=== PATIENT | male | born 1955 | race Caucasian/White ===

== ENCOUNTER 2023-02-26 07:22 | Outpatient (RCR) | payer MEDICARE, SELFPAY ==
--- NOTE | 2023-01-07 08:12 | CR1_ITS ---
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
--- NOTE | 2023-02-04 13:05 | CR1_ITS ---
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 Order Number: [id number] Reading MD: JESSE JENKINS Interpretive Statements Session Date: Electronically Signed On 02-06-2023 10:17:20 EDT by JESSE JENKINS
--- NOTE | 2023-03-01 14:32 | CR1_ITS ---
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 Order Number: [id number] Reading MD: JESSE JENKINS Interpretive Statements Session Date: Electronically Signed On 03-02-2023 7:21:32 EDT by JESSE JENKINS
== END 2023-03-01 14:33 | disposition home or self-care (01) ==
LOC: CR 07:22
PROVIDERS: PCP Internal Medicine Interventional Cardiology; Visit Provider Internal Medicine Interventional Cardiology
DX: I50.9 Heart failure, unspecified (principal)
CPT/HCPCS: 93798

== ENCOUNTER 2023-03-17 08:59 | Outpatient (OUT) | payer MEDICARE, SELFPAY ==
[2023-03-17 12:49] LABS: Anion Gap 12.2; BUN Creatinine Ratio 11.8; Calcium 8.6 mg/dL (8.5-10.1); Carbon Dioxide 25.9 mmol/L (21.0-32.0); Chloride 103 mmol/L (98-107); Estimated GFR (African America >60 (>=60); Estimated GFR (Non-African Ame >60 (>=60); Glucose 86 mg/dL (74-106); Potassium 4.1 mmol/L (3.5-5.1); Sodium 137 mmol/L (136-145)
== END 2023-03-17 09:00 | disposition home or self-care (01) ==
LOC: LAB 09:03
PROVIDERS: PCP Family Medicine; Visit Provider Nurse Practitioner
DX: I50.22 Chronic systolic (congestive) heart failure (principal)
CPT/HCPCS: 36415; 80048

== ENCOUNTER 2023-06-01 09:56 | Outpatient (OUT) | payer MEDICARE, SELFPAY ==
--- NOTE | 2023-06-01 12:03 | CA_ITS ---
Patient Name: KRISTY VAZQUEZ MR#: [id number] : 1955 Exam Date: 06/01/2023 Ordering Doctor: DR BORIS WILLIAM M.D. ECHOCARDIOGRAM REPORT PROCEDURE: CA ECHO DOPPLER COMPLETE INDICATIONS: Chronic systolic heart failure COMPARISON: None. DESCRIPTION: COMPLETE ECHOCARDIOGRAM Real-time transthoracic echocardiography with 2D, M-mode, spectral and color flow Doppler performed. QUALITY: Technical quality was good. LEFT VENTRICLE: Normal chamber size. Mild concentric left ventricular hypertrophy. Global left ventricular systolic function difficult to assess but appears moderately decreased. LV EF: Estimated left ventricular ejection fraction is 30-35% DIASTOLIC: Grade I diastolic dysfunction. ATRIAL SEPTUM: LEFT ATRIUM: Normal chamber size. RIGHT ATRIUM: Mild dilatation. Pacer wire present. RIGHT VENTRICLE: Normal chamber size. Normal right ventricular systolic function. Pacer wire present. TRICUSPID VALVE: Normal mobility and thickness. No stenosis with trivial regurgitation. No evidence of pulmonary hypertension. RVSP 33 mmHg MITRAL VALVE: Normal mobility and thickness. No evidence of mitral valve stenosis. There is no mitral annular calcification. Mild mitral regurgitation. AORTIC VALVE: Normal trileaflet appearance. Mildly calcified aortic valve. Normal leaflet mobility. No evidence of aortic valve stenosis. Mild aortic regurgitation. AORTIC ROOT: Normal diameter and appearance. PULMONIC VALVE: Normal thickness and mobility. No stenosis. Trivial regurgitation. PERICARDIUM: No evidence of pericardial effusion. IVC: Collapses with inspirations. Normal size. PLEURA: CONCLUSION: 1. Ventricular systolic function is difficult to assess but appears moderately reduced. LVEF is estimated at 30 to 35%. 2. Normal right ventricular size and systolic function. 3. Mild mitral regurgitation, otherwise no significant valvular dysfunction. 4. Normal right-sided pressures. 5. No pericardial effusion. Adult Echocardiography Procedure Report Left Ventricle LVEDD (3.7 - 5.6 cm): 4.97 cm LVESD (2.2 - 4.0 cm): 4.10 cm LVIVS thickness (0.6 - 1.2 cm): 1.28 cm LVPW thickness (0.5 - 1.0 cm): 1.22 cm e': 0.11 m/s E - e': 4.64 LVOT Max Gradient: 2.86 mm[Hg] LVOT Area (cm2): 0.85 m/s Peak Velocity (LVOT): 0.85 m/s Mean Velocity (LVOT): 0.60 m/s LVOT Diameter 2.10 cm Left Ventricular Ejection Fraction: 30-35 % Left Atrium LA Volume Index (2D A2C): 34.04 ml/m2 Left Atrium Systolic Dimension: 3.30 cm Mitral Valve MV E to A Ratio: 0.59 Mitral Valve A-Wave Peak Velocity: 0.84 m/s Mitral Valve E-Wave Peak Velocity: 0.50 m/s Right Ventricle RV Internal Diastolic Dimension: 3.07 cm Aorta AO Root Diam: 3.54 cm Ascending Ao Diam: 2.40 cm Aortic Valve AoV Area (Peak Stanley): 2.01 cm2, 2.04 cm2 AoV Area (VTI): 2.29 cm2, 2.28 cm2 Deceleration Bosque: 2.51 m/s2 Pressure Half-Time: 453.90 ms Peak Velocity(Antegrade Flow): 1.44 m/s, 1.48 m/s Peak Gradient(Antegrade Flow): 8.32 mm[Hg], 8.73 mm[Hg] Mean Velocity(Antegrade Flow): 1.04 m/s, 1.11 m/s Mean Gradient(Antegrade Flow): 4.74 mm[Hg], 5.29 mm[Hg] Velocity Time Integral: 31.19 cm, 30.82 cm Tricuspid Valve Peak Velocity (Regurgitant Flow): 2.16 m/s, 2.45 m/s, 2.72 m/s Pulmonic Valve Mean Gradient: 2.75 mm[Hg], 2.91 mm[Hg] Mean Velocity: 0.76 m/s, 0.77 m/s Peak Velocity: 1.40 m/s Peak Gradient: 7.41 mm[Hg], 8.32 mm[Hg] Right Atrium Right Atrium Systolic Pressure: 62.53 ml, 62.53 ml Dictated by: Boris William M.D. on 06/01/2023 at 16:02 Approved by: Boris William M.D. on 06/01/2023 at 16:13
== END 2023-06-01 09:57 | disposition home or self-care (01) ==
LOC: CARD 09:56
PROVIDERS: PCP Family Medicine; Visit Provider Internal Medicine Interventional Cardiology
DX: I50.22 Chronic systolic (congestive) heart failure (principal); I34.0 Nonrheumatic mitral (valve) insufficiency
CPT/HCPCS: 93306

== ENCOUNTER 2023-07-29 10:34 | Outpatient (OUT) | payer MEDICARE, SELFPAY ==
--- OUTSIDE RECORDS SUMMARY | 2023-07-29 10:52 | XMS_ITS | CCD ---
Author Name Unknown Address [address] [place] [address] Organization [facility] Care Team Providers Care Lease Administrator Name Role Phone JUDY, DR ESCALANTE Attending Unavailable MOUKARBEL, DR ESCALANTE Admitting Unavailable NADERER, DR RUDY Simpson Primary Care Unavailable NADERER, DR RUDY Simpson Primary Care Unavailable MOUKARBEL, DR ESCALANTE Admitting Unavailable MOUKARBEL, DR ESCALANTE Consulting Unavailable MOUKARBEL, DR ESCALANTE Attending Unavailable NADERER, DR RUDY Simpson Primary Care Unavailable NADERER, DR RUDY Simpson Attending Unavailable NADERER, DR RUDY Simpson Admitting Unavailable MENDOZA ., DR DENI Jones Consulting Unavailable WEST, DR ASIF Davila Consulting Unavailable ZIEBER, DR BRIAN Bernstein Consulting Unavailable NADERER, DR RUDY Simpson Consulting Unavailable DANNA, FROY Consulting Unavailable MONCADA, SOBEIDA Consulting Unavailable NEFCY, ADIEL Consulting Unavailable SISTER, EDDIE Consulting Unavailable NADERER, DR RUDY Simpson Primary Care Unavailable WEST, DR ASIF Davila Consulting Unavailable NILL ., DR RODRIGUES Attending Unavailable NILL ., DR RODRIGUES Admitting Unavailable NILL ., DR RODRIGUES Consulting Unavailable DORKOSKIEROGELIO Consulting Unavailable MCCORNACKBRIAN Consulting Unavailable NADERER, DR RUDY Simpson Primary Care Unavailable ZIEBER, DR BRIAN Bernstein Consulting Unavailable JASONKAE Attending Unavailable JASONKAE Admitting Unavailable JASONKAE Consulting Unavailable BOBO RAYMOND Attending Unavailable BOBO RAYMOND Admitting Unavailable ASIF COLVIN Consulting Unavailable NADERER, DR RUDY Simpson Primary Care Unavailable BOBO RAYMOND Consulting Unavailable MOUKARBEL, DR ESCALANTE Consulting Unavailable MOUKARBEL, DR ESCALANTE Attending Unavailable MOUKARBEL, DR ESCALANTE Admitting Unavailable NADERER, DR RUDY Simpson Primary Care Unavailable AICHHOLZ, INDUSTRIAL ENGINEER APOORVA Admitting Unavailable AICHHOLZ, INDUSTRIAL ENGINEER APOORVA Consulting Unavailable AICHHOLZ, INDUSTRIAL ENGINEER APOORVA Attending Unavailable NADERER, DR RUDY Simpson Primary Care Unavailable BONNIE RODRIGUES Consulting Unavailable NADEREDay, DR RUDY Simpson Primary Care Unavailable VIVIANAZAshley, MILDRED Admitting Unavailable BARAZI, MILDRED Consulting Unavailable BARAZAshley, MILDRED Attending Unavailable NADERER, DR RUDY Simpson Primary Care Unavailable HOLDINGFORD, DR ASIF Davila Consulting Unavailable FAWWAD, H Attending Unavailable FAWWAD, H Admitting Unavailable FAWWAD, H Consulting Unavailable Haladay, Kristy Attending Unavailable Haladay, Kristy Admitting Unavailable MOUKARBEL, BORIS Attending Unavailable GABRIEL, BOBO Attending Unavailable GABRIEL, BOBO Referring Unavailable CHITRA, CUBA Attending Unavailable MOUKARBEL, BORIS Attending Unavailable BARAZI, MILDRED Attending Unavailable ANZAR, ALEN Referring Unavailable CARMEN, VOLODYMYR Admitting Unavailable REBECA, DOC Attending Unavailable BARAZI, MILDRED Attending Unavailable GABRIEL, BOBO Admitting Unavailable GABRIEL, BOBO Attending Unavailable GABRIEL, BOBO Referring Unavailable PIRKL, JORGE Referring Unavailable BARAZI, MILDRED Attending Unavailable GABRIEL, BOBO Referring Unavailable GABRIEL, BOBO Referring Unavailable MOUKARBEL, BORIS Attending Unavailable GABRIEL, BOBO Attending Unavailable NADERER, RUDY Attending Unavailable Problems Active Problems Problem Classification Problem Date Documented Date Episodic/Chronic Asthma (2 sources) Mild persistent asthma, uncomplicated; Translations: [Unspecified asthma, uncomplicated] Onset: 01-30-2022 Chronic Cardiac dysrhythmias (2 sources) Paroxysmal atrial fibrillation; Translations: [Paroxysmal atrial fibrillation] Onset: 06-29-2023 Chronic Conduction disorders (6 sources) Presence of automatic (implantable) cardiac defibrillator; Translations: [PRESENCE AUTO IMPLANT CARDIAC DEFIB] Onset: 09-05-2022 Chronic Congestive heart failure; nonhypertensive (12 sources) Chronic systolic (congestive) heart failure; Translations: [Acute on chronic systolic (congestive) heart failure] Onset: 07-02-2022 Chronic Coronary atherosclerosis and other heart disease (4 sources) Atherosclerotic heart disease of [place] coronary artery without angina pectoris; Translations: [Coronary arteriosclerosis] Onset: 07-07-2022 Chronic Digestive congenital anomalies (1 source) Other specified congenital malformations of intestine; Translations: [OTH SPEC CONGEN MALFORM INTESTINE] Onset: 01-30-2022 Chronic Disorders of lipid metabolism (4 sources) Mixed hyperlipidemia; Translations: [Hyperlipidemia, unspecified] Onset: 01-30-2022 Chronic Essential hypertension (4 sources) Essential (primary) hypertension; Translations: [Hypertensive disorder] Onset: 07-03-2022 Chronic Headache; including migraine (3 sources) Headache; including migraine; Translations: [HEADACHE UNSPECIFIED] Onset: 07-02-2022 Heart valve disorders (1 source) Combined rheumatic disorders of mitral, aortic and tricuspid valves; Translations: [COMB RHEUMAT D/O MITRL AORTC TRICSP] Onset: 08-20-2022 Chronic Hypertension with complications and secondary hypertension (1 source) Hypertensive heart disease with heart failure; Translations: [HTN HEART DISEASE W/HEART FAIL] Onset: 07-09-2022 Chronic Mood disorders (1 source) Major depressive disorder, single episode, unspecified; Translations: [JOSE DEPRESS D/O SINGLE EPIS UNS] Onset: 01-30-2022 Chronic Nutritional deficiencies (1 source) Vitamin D deficiency, unspecified; Translations: [VITAMIN D DEFICIENCY UNSPECIFIED] Onset: 01-30-2022 Chronic Other non-traumatic joint disorders (4 sources) Effusion, left knee; Translations: [EFFUSION LEFT KNEE] Onset: 11-02-2022 Episodic Other nutritional; endocrine; and metabolic disorders (1 source) Obesity, unspecified; Translations: [OBESITY UNSPECIFIED] Onset: 01-30-2022 Chronic Other nutritional; endocrine; and metabolic disorders (1 source) Body mass index (BMI) 30.0-30.9, adult; Translations: [BODY MASS INDEX BMI 30.0-30.9 ADULT] Onset: 01-30-2022 Chronic Mishel-; endo-; and myocarditis; cardiomyopathy (except that caused by tuberculosis or sexually transmitted disease) (4 sources) Other cardiomyopathies; Translations: [Cardiomyopathy, unspecified] Onset: 09-01-2022 Chronic Rheumatoid arthritis and related disease (1 source) Inflammatory polyarthropathy; Translations: [Inflammatory polyarthropathy] Onset: 12-03-2022 Chronic Unclassified (1 source) CONTACT W/AND (SUSP) EXPOS COVID-19; Translations: [CONTACT W/AND (SUSP) EXPOS COVID-19] Onset: 07-09-2022 Past or Other Problems Problem Classification Problem Date Documented Da te Episodic/Chronic Cancer of prostate (1 source) Personal history of malignant neoplasm of prostate; Translations: [PERSONAL HX MALIG NEOPLASM PROSTATE] Onset: 07-09-2022 Episodic Diabetes mellitus without complication (1 source) Prediabetes; Translations: [PREDIABETES] Onset: 07-09-2022 Episodic E Codes: Struck by; against (1 source) Striking against or struck by other objects, initial encounter; Translations: [STRIKING AGNST/STRUCK OTH OBJ INIT] Onset: 07-09-2022 Episodic Fluid and electrolyte disorders (1 source) Hypokalemia; Translations: [HYPOKALEMIA] Onset: 07-09-2022 Episodic Immunizations and screening for infectious disease (1 source) Encounter for immunization; Translations: [ENCOUNTER FOR IMMUNIZATION] Onset: 07-09-2022 Episodic Other aftercare (1 source) Other director long term care (current) drug therapy; Translations: [OTH SCRIPT EDITOR CURRENT DRUG THERAPY] Onset: 07-09-2022 Episodic Other connective tissue disease (4 sources) Pain in left foot; Translations: [PAIN IN LEFT FOOT] Onset: 08-18-2022 Episodic Other injuries and conditions due to external causes (1 source) Unspecified injury of head, initial encounter; Translations: [UNSPECIFIED INJURY HEAD INITIAL ENC] Onset: 07-09-2022 Episodic Other screening for suspected conditions (not mental disorders or infectious disease) (4 sources) Encounter for screening for malignant neoplasm of colon; Translations: [ENC SCREEN MALIG NEOPLASM COLON] Onset: 01-28-2022 Episodic Screening and history of mental health and substance abuse codes (1 source) Personal history of nicotine dependence; Translations: [PERSONAL HISTORY OF NICOTINE DEPEND] Onset: 07-09-2022 Episodic Syncope (3 sources) Syncope and collapse; Translations: [SYNCOPE AND COLLAPSE] Onset: 07-03-2022 Episodic Results Test Name Value Interpretation Reference Range Facility Office Visiton 06-29-2023 Follow-up visit [id number] Dominik Doherty 1955 M Date Provider Department Center 06/29/2023 BORIS COONEY Family History Problem Relation Age of Onset Other Mother Family Status - Relation Status Age at Mother Level of Service:24261 MS OFFICE/OUTPATIENT ESTABLISHED MOD MDM 30-39 MIN Normal [facility] Office Visiton 05-11-2023 Follow-up visit [id number] Dominik Doherty 1955 M Date Provider Department Center 05/11/2023 RameshGABRIELBOBO Story ALON Jamesevue Ashlyn Family History Problem Relation Age of Onset Other Mother Family Status - Relation Status Age at Mother Level of Service:99282 MS OFFICE/OUTPATIENT ESTABLISHED MOD MDM 30-39 MIN Normal [facility] 37on 02-19-2023 37 Increase entresto to higher dose 49-51 mg tablet twice daily Please have blood drawn next week to check kidney function and electrolytes. Continue cardiac rehab Monitor daily weights, low sodium/heart healthy diet, fluid restriction 1.5-2L/day Normal [facility] Office Visiton 02-19-2023 Follow-up visit [id number] Dominik Doherty ert 1955 M Date Provider Department Center 02/19/2023 SrinivasAMYS CUBA ALON Goldberg Family History Problem Relation Age of Onset Other Mother Family Status - Relation Status Age at Mother Level of Service:61489 MS OFFICE/OUTPATIENT ESTABLISHED MOD MDM 30-39 MIN Normal [facility] COLLIN Antinuclear Antibodieson 12-03-2022 Antinuclear Abs, IFA Positive Critically abnormal . [facility] Comment on above: Result Comment: Nega tive <1:80 Borderline 1:80 Positive >1:80 Performed By: #### A NA #### [facility] , #### PTH, CRP, CBC, ESR, URIC, CMP #### [facility] [address] [place] [address] [place] Homogeneous Pattern 1:80 Normal . [facility] Comment on above: Result Comment: ICAP nomenclature: AC-1 Performed By: #### A NA #### [facility] , #### PTH, CRP, CBC, ESR, URIC, CMP #### [facility] [address] [place] [address] [place] Note 1 Normal . [facility] Comment on above: Result Comment: For more information about Hep-2 cell patterns use ANApatterns.org, the official website for the International Consensus on Antinuclear Antibody (COLLIN) Patterns (ICAP). A positive COLLIN result may occur in healthy individuals (low titer) or be associated with a variety of diseases. See interpretation chart which is not all inclusive: Pattern Antigen Detected Suggested Disease Association Homogeneous DNA(ds,ss), SLE - High titers Nucleosomes, Histones Drug-induced SLE Speckled Sm, [employer], SCL-70, SLE,MCTD,PSS (diffuse form), SS-A/SS-B Sjogrens Nucleolar SCL-70, PM-1/SCL High titers Scleroderma, PM/DM Centromere Centromere PSS (limited form) w/Crest syndrome variable Nuclear Dot [id number] Primary Biliary Cirrhosis Nuclear GP210, Primary Biliary Cirrhosis Membrane flor A,B,C Performed at: [facility] [id number] Epic Trainer: John Acosta PhD, Phone: [phone] PERFORMED BY: [place] [address] PATHOLOGIST WELDING ESTIMATOR ROMULO SERRA M.D. Performed By: #### A NA #### [facility] , #### PTH, CRP, CBC, ESR, URIC, CMP #### [address] C-Reactive Proteinon 023 C-Reactive Protein 0.6 mg/dL High 0.0-0.5 [facility] Comment on above: Result Comment: PERF ORMED BY: [place] [address] PATHOLOGIST WELDING ESTIMATOR ROMULO SERRA M.D. Performed By: #### A NA #### [facility] , #### PTH, CRP, CBC, ESR, URIC, CMP #### [facility] [address] [place] [address] Complete Blood Count Auto Di ffon 12-03-2022 Basophils (Bld) [#/Vol] 0.1 10*3/uL Normal 0.0-0.2 [facility] Comment on above: Performed By: #### A NA #### [facility] , #### PTH, CRP, CBC, ESR, URIC, CMP #### [facility] [address] [place] [address] Basophils/100 WBC (Bld) 1.1 % Normal . [facility] Comment on above: Performed By: #### A NA #### [facility] , #### PTH, CRP, CBC, ESR, URIC, CMP #### [address] Eosinophils (Bld) [#/Vol] 0.3 10*3/uL Normal 0.0-0.45 [facility] Comment on above: Performed By: #### A NA #### [facility] , #### PTH, CRP, CBC, ESR, URIC, CMP #### [address] Eosinophils/100 WBC (Bld) 4.2 % Normal . [facility] Comment on above: Performed By: #### A NA #### [facility] , #### PTH, CRP, CBC, ESR, URIC, CMP #### [address] Erythrocyte distribution width (RBC) [Ratio] 16.3 % High 12.0-14.8 [facility] Comment on above: Performed By: #### A NA #### [facility] , #### PTH, CRP, CBC, ESR, URIC, CMP #### [address] Hematocrit (Bld) [Volume fraction] 40.2 % Normal 38.8-50.0 [facility] Comment on above: Performed By: #### A NA #### [facility] , #### PTH, CRP, CBC, ESR, URIC, CMP #### [address] Hemoglobin (Bld) [Mass/Vol] 13.3 g/dL Normal 13.0-17.0 [facility] Comment on above: Performed By: #### A NA #### [facility] , #### PTH, CRP, CBC, ESR, URIC, CMP #### [address] Lymphocytes (Bld) [#/Vol] 2.5 10*3/uL Normal 1.00-4.8 [facility] Comment on above: Performed By: #### A NA #### [facility] , #### PTH, CRP, CBC, ESR, URIC, CMP #### [address] Lymphocytes/100 WBC (Bld) 31.3 % Normal . [facility] Comment on above: Performed By: #### A NA #### [facility] , #### PTH, CRP, CBC, ESR, URIC, CMP #### [address] MCH (RBC) [Entitic mass] 29.4 pg Normal 27.5-35.2 [facility] Comment on above: Performed By: #### A NA #### [facility] , #### PTH, CRP, CBC, ESR, URIC, CMP #### [address] MCV (RBC) [Entitic vol] 88.7 fL Normal 83.5-101 [facility] Comment on above: Performed By: #### A NA #### [facility] , #### PTH, CRP, CBC, ESR, URIC, CMP #### [address] Mean Corpuscular HGB Conc 33.1 g/dL Normal 32.5-35.6 [facility] Comment on above: Performed By: #### A NA #### [facility] , #### PTH, CRP, CBC, ESR, URIC, CMP #### [address] Monocytes (Bld) [#/Vol] 1.0 10*3/uL High 0.0-0.8 [facility] Comment on above: Performed By: #### A NA #### [facility] , #### PTH, CRP, CBC, ESR, URIC, CMP #### [place] [address] [place] Monocytes/100 WBC (Bld) 12.9 % Normal . [facility] Comment on above: Performed By: #### A NA #### [facility] , #### PTH, CRP, CBC, ESR, URIC, CMP #### [address] Neutrophils (Bld) [#/Vol] 4.1 10*3/uL Normal 1.8-7.7 [facility] Comment on above: Performed By: #### A NA #### [facility] , #### PTH, CRP, CBC, ESR, URIC, CMP #### [address] Neutrophils/100 WBC (Bld) 50.5 % Normal . [facility] Comment on above: Performed By: #### A NA #### [facility] , #### PTH, CRP, CBC, ESR, URIC, CMP #### [address] NRBC% 0.0 /100{WBC} Normal 0-0.5 [facility] Comment on above: Performed By: #### A NA #### [facility] , #### PTH, CRP, CBC, ESR, URIC, CMP #### [address] Platelet mean volume (Bld) [Entitic vol] 8.7 fL Normal 6.6-10.1 [facility] Comment on above: Performed By: #### A NA #### [facility] , #### PTH, CRP, CBC, ESR, URIC, CMP #### [address] Platelets (Bld) [#/Vol] 285 10*3/uL Normal 150-450 [facility] Comment on above: Performed By: #### A NA #### [facility] , #### PTH, CRP, CBC, ESR, URIC, CMP #### [address] RBC (Bld) [#/Vol] 4.53 10*6/uL Normal 3.90-5.60 [facility] Comment on above: Performed By: #### A NA #### [facility] , #### PTH, CRP, CBC, ESR, URIC, CMP #### [address] WBC (Bld) [#/Vol] 8.0 10*3/uL Normal 4.1-10.5 [facility] Comment on above: Performed By: #### A NA #### [facility] , #### PTH, CRP, CBC, ESR, URIC, CMP #### [address] Comprehensive Metabolic Pane conor 12-03-2022 Albumin [Mass/Vol] 4.2 g/dL Normal 3.5-5.7 [facility] Comment on above: Performed By: #### A NA #### [facility] , #### PTH, CRP, CBC, ESR, URIC, CMP #### [address] Albumin/Globulin [Mass ratio] 1.3 {ratio} Normal [facility] Comment on above: Performed By: #### A NA #### [facility] , #### PTH, CRP, CBC, ESR, URIC, CMP #### [address] ALP [Catalytic activity/Vol] 69 U/L Normal 34-104 [facility] Comment on above: Performed By: #### A NA #### [facility] , #### PTH, CRP, CBC, ESR, URIC, CMP #### [facility] [address] [place] [address] ALT [Catalytic activity/Vol] 15 U/L Normal 7-52 [facility] Comment on above: Performed By: #### A NA #### [facility] , #### PTH, CRP, CBC, ESR, URIC, CMP #### [facility] [address] [place] [address] Anion gap [Moles/Vol] 9.9 mmol/L Normal 6.0-15.0 [facility] Comment on above: Performed By: #### A NA #### [facility] , #### PTH, CRP, CBC, ESR, URIC, CMP #### [address] AST [Catalytic activity/Vol] 24 U/L Normal 13-39 [facility] Comment on above: Performed By: #### A NA #### [facility] , #### PTH, CRP, CBC, ESR, URIC, CMP #### [facility] [address] [place] [address] Bilirubin [Mass/Vol] 0.4 mg/dL Normal 0.3-1.0 [facility] [place] [facility] Comment on above: Performed By: #### A NA #### [facility] , #### PTH, CRP, CBC, ESR, URIC, CMP #### [facility] [address] [place] [address] Calcium [Mass/Vol] 9.6 mg/dL Normal 8.6-10.3 [facility] Comment on above: Performed By: #### A NA #### [facility] , #### PTH, CRP, CBC, ESR, URIC, CMP #### [facility] [address] [place] [address] Chloride [Moles/Vol] 103 mmol/L Normal 98-107 [facility] [place] [facility] Comment on above: Performed By: #### A NA #### [facility] , #### PTH, CRP, CBC, ESR, URIC, CMP #### [address] CO2 [Moles/Vol] 29.5 mmol/L Normal 21.0-31.0 [facility] Comment on above: Performed By: #### A NA #### [facility] , #### PTH, CRP, CBC, ESR, URIC, CMP #### [address] Creatinine [Mass/Vol] 1.06 mg/dL Normal 0.70-1.30 [facility] Comment on above: Performed By: #### A NA #### [facility] , #### PTH, CRP, CBC, ESR, URIC, CMP #### [address] GFR/1.73 sq M.predicted MDRD (S/P/Bld) [Vol rate/Area] mL/min/{1.73_m2} [facility] Comment on above: Performed By: #### A NA #### [facility] , #### PTH, CRP, CBC, ESR, URIC, CMP #### [address] Globulin (S) [Mass/Vol] 3.2 g/dL [facility] Comment on above: Performed By: #### A NA #### [facility] , #### PTH, CRP, CBC, ESR, URIC, CMP #### [address] Glucose [Mass/Vol] 81 mg/dL Normal 70-100 [facility] Comment on above: Result Comment: [place] Glucose Reference Range is dependent on time and content of last meal. Glucose of more than 200 mg/dL in a nonstressed, ambulatory subject supports the diagnosis of Diabetes Mellitus. ADA recommended reference range Performed By: #### A NA #### [facility] , #### PTH, CRP, CBC, ESR, URIC, CMP #### [address] Potassium [Moles/Vol] 4.4 mmol/L Normal 3.5-5.1 [facility] Comment on above: Performed By: #### A NA #### [facility] , #### PTH, CRP, CBC, ESR, URIC, CMP #### [address] Protein [Mass/Vol] 7.4 g/dL Normal 6.4-8.9 [facility] Comment on above: Performed By: #### A NA #### [facility] , #### PTH, CRP, CBC, ESR, URIC, CMP #### [address] Sodium [Moles/Vol] 138 mmol/L Normal 136-145 [facility] Comment on above: Performed By: #### A NA #### [facility] , #### PTH, CRP, CBC, ESR, URIC, CMP #### [address] Urea nitrogen [Mass/Vol] 19 mg/dL Normal 7-25 [facility] Comment on above: Performed By: #### A NA #### [facility] , #### PTH, CRP, CBC, ESR, URIC, CMP #### [address] Erythrocyte Sedimentation Ra nishant 12-03-2022 ESR (Bld) [Velocity] 43 mm/h High 0-19 [facility] [place] [facility] Comment on above: Result Comment: PERF ORMED BY: [place] [address] PATHOLOGIST WELDING ESTIMATOR ROMULO SERRA M.D. Performed By: #### A NA #### [facility] , #### PTH, CRP, CBC, ESR, URIC, CMP #### [address] Parathyroid Hormone Intacton 12-03-2022 Parathyroid Hormone Intact 34.1 pg/mL Normal 12-88 [facility] Comment on above: Result Comment: PERF ORMED BY: [place] [address] PATHOLOGIST WELDING ESTIMATOR ROMULO SERRA M.D. Performed By: #### A NA #### [facility] , #### PTH, CRP, CBC, ESR, URIC, CMP #### [address] Uric Acidon 12-03-2022 Urate [Mass/Vol] 3.5 mg/dL Normal 2.4-7.6 [facility] Comment on above: Performed By: #### A NA #### [facility] , #### PTH, CRP, CBC, ESR, URIC, CMP #### [address] XR foot LT 2Von 12-03-2022 XR foot LT 2V [facility] Main [place] [address] [place] [address] XRay Report Signed Patient: Kristy Doherty MR#: [id number] 81 : 1955 Acct:[id number] Age/Sex: 67 / M ADM Date: 12/03/22 Loc: [facility] Room: Type: [facility] Attending Dr: Kristy Beatty MD Copies to: Kristy Beatty MD Ordering Provider: Kristy Beatty MD Date of Service: 12/03/22 XR/XR foot LT 2V: . XR foot LT 2V 12/03/2022 2:30 PM SIGNS AND SYMPTOMS: Pain and swelling of the left foot across the metatarsophalangeal joints PROTOCOL: Frontal and lateral radiographs of the left foot COMPARISON: None FINDINGS: The bones are in anatomic alignment. The joint spaces are preserved. There is no evidence of fracture or dislocation. There is plantar surface calcaneal spurring. XR/XR foot LT 2V IMPRESSION: No acute bony injury. No significant degenerative change. Impression dictated by: Bonnie Grewal M.D.12/03/2022 4:56 PM Dictation Location: RADIO-PC-07 Transcribed By: SUSAN 12/03/221655 Dictated By: Bonnie Grewal II, MD 12/03/221654 Signed By: 12/03/221655 [facility] XR hand BI 2Von 12-03-2022 XR hand BI 2V [facility] Main [place] [id number] XRay Report Signed Patient: Kristy Doherty MR#: [id number] 81 : 1955 Acct:[id number] Age/Sex: 67 / M ADM Date: 12/03/22 Loc: [facility]XD Room: Type: [facility] Attending Dr: Kristy Beatty MD Copies to: Kristy Beatty MD Ordering Provider: Kristy Beatty MD Date of Service: 12/03/22 XR/XR hand BI 2V: PAIN XR hand BI 2V 12/03/2022 2:30 PM SIGNS AND SYMPTOMS: Pain in the bilateral hands PROTOCOL: Frontal and lateral radiographs of the bilateral hands COMPARISON: None FINDINGS: There is mild narrowing of the first and second metatarsophalangeal joint spaces. There is also mild narrowing of the distal interphalangeal joints and right fifth proximal interphalangeal joint. There is no fracture. No dislocation or subluxation. The joint spaces are preserved. XR/XR hand BI 2V IMPRESSION: No acute bony injury. Degenerative changes are noted, as above. Impression dictated by: Bonnie Grewal M.D.12/03/2022 5:29 PM Dictation Location: RADIO-PC-07 Transcribed By: SUSAN 12/03/221728 Dictated By: Bonnie Grewal II, MD 12/03/221650 Signed By: 12/03/221728 [facility] XR knee LT 2Von 12-03-2022 XR knee LT 2V [facility] Main [place] [id number] XRay Report Signed Patient: Kristy Doherty MR#: [id number] [birth year] : 1955 Acct:[id number] Age/Sex: 67 / M ADM Date: 12/03/22 Loc: ICXD Room: Type: [facility] Attending Dr: Kristy Beatty MD Copies to: Kristy Beatty MD Ordering Provider: Kristy Beatty MD Date of Service: 12/03/22 XR/XR knee LT 2V: . XR knee LT 2V 12/03/2022 2:30 PM SIGNS AND SYMPTOMS: Pain and swelling of the left knee PROTOCOL: Frontal and lateral radiograph of the left knee COMPARISON: None. FINDINGS: There is mild narrowing of the medial weightbearing joint space. The joint spaces are otherwise preserved. There is a tiny joint effusion. No fracture. No soft tissue swelling. Vascular calcifications are present posteriorly. XR/XR knee LT 2V IMPRESSION: No fracture. Mild degenerative changes are noted, as above. Impression dictated by: Bonnie Grewal M.D.12/03/2022 4:54 PM Dictation Location: [place] [address] Transcribed By: [facility] 12/03/221653 Dictated By: Bonnie Grewal II, MD 12/03/221652 Signed By: 12/03/221653 [facility] Office Visiton 11-30-2022 Follow-up visit [id number] Dominik Doherty ert 1955 M Date Provider Department Center 11/30/2022 BORIS COONEY [facility] Family History Problem Relation Age of Onset Other Mother Family Status - Relation Status Age at Mother Level of Service:79331 MS OFFICE/OUTPATIENT ESTABLISHED MOD MDM 30-39 MIN Reason for Visit and Comments: Congestive Heart Failure [127] Coronary Artery Disease [187] Hypertension [176273] Syncope [506] Normal [facility] COLLIN by IFAon 11-04-2022 Antinuclear Antibodies, IFA Negative Normal [facility] Comment on above: Result Comment: Nega tive <1:80 Borderline 1:80 Positive >1:80 ICAP nomenclature: AC-0 For more information about Hep-2 cell patterns use ANApatterns.org, the official website for the International Consensus on Antinuclear Antibody (COLLIN) Patterns (ICAP). Performed By: #### C AILNY, BMP #### [facility] [address] [place] [address] Dr. Skylar Chadwick ANTISTREPTOLYSIN O AB (ASO)o n 11-03-2022 Antistreptolysin O Ab 326.2 IU/mL Critically high 0.0-200.0 [facility] Comment on above: Performed By: #### A SOAB #### [facility] [address] [place] [address] Dr. Skylar Chadwick RHEUMATOID FACTORon 11-04-19 23 RA Latex Turbid. 14.3 IU/mL Critically high <14.0 [facility] Comment on above: Performed By: #### C AILYN, BMP #### [facility] [address] [place] [address] Dr. Skylar Chadwick CBC AUTO DIFFon 11-02-2022 BASO # 0.1 103/ul Normal 0.0-0.1 [facility] Comment on above: Performed By: #### C AILYN, BMP #### [facility] [address] [place] [address] Dr. Skylar Chadwick Basophils/100 WBC (Bld) 0.7 % Normal 0.2-2.0 [facility] Comment on above: Performed By: #### C AILYN, BMP #### [facility] [address] [place] [address] Dr. Skylar Chadwick EO # 0.2 103/ul Normal 0.0-0.7 [facility] Comment on above: Performed By: #### C AILYN, BMP #### [facility] [address] [place] [address] Dr. Skylar Chadwick Eosinophils/100 WBC (Bld) 2.8 % Normal 0.9-7.0 [facility] Comment on above: Performed By: #### C AILYN, BMP #### [facility] [address] [place] [address] Dr. Skylar Chadwick Erythrocyte distribution width (RBC) [Ratio] 15.1 % Critically high 11.0-15.0 [facility] Comment on above: Performed By: #### C MADM, BMP #### [facility] [address] [place] [address] Dr. Skylar Chadwick Hematocrit (Bld) [Volume fraction] 37.2 % Critically low 42.0-54.0 [facility] Comment on above: Performed By: #### C MADM, BMP #### [facility] [address] [place] [address] Dr. Skylar Chadwick Hemoglobin (Bld) [Mass/Vol] 12.2 g/dL Critically low 14.0-18.0 [facility] Comment on above: Performed By: #### C MADM, BMP #### [facility] [address] [place] [address] Dr. Skylar Chadwick IG # 0.02 10e3/ul Normal 0.00-0.03 [facility] Comment on above: Performed By: #### C MADM, BMP #### [facility] [address] [place] [address] Dr. Skylar Chadwick IG % 0.3 % Normal 0.0-0.5 [facility] Comment on above: Performed By: #### C MADM, BMP #### [facility] [address] [place] [address] Dr. Skylar Chadwick LYMPH # 2.2 103/ul Normal 1.2-3.8 [facility] Comment on above: Performed By: #### C CARLOS ENRIQUEM, BMP #### [facility] [address] [place] [address] Dr. Skylar Chadwick Lymphocytes/100 WBC (Bld) 30.3 % Normal 20.5-60.0 [facility] Comment on above: Performed By: #### C MADM, BMP #### [facility] [address] [place] [address] Dr. Skylar Chadwick MANUAL DIFF REQ NO Normal [facility] Comment on above: Performed By: #### C MADM, BMP #### [facility] [address] [place] [address] Dr. Skylar Chadwick MCH (RBC) [Entitic mass] 29.3 pg Normal 25.9-34.0 [facility] Comment on above: Performed By: #### C AILYN, BMP #### [facility] [address] [place] [address] Dr. Skylar Chadwick MCHC (RBC) [Mass/Vol] 32.8 g/dL Normal 29.9-35.2 [facility] Comment on above: Performed By: #### C AILYN, BMP #### [facility] [address] [place] [address] Dr. Skylar Chadwick MCV (RBC) [Entitic vol] 89.2 fL Normal 80.0-94.0 [facility] Comment on above: Performed By: #### C AILYN, BMP #### [facility] [address] [place] [address] Dr. Skylar Chadwick MONO # 0.8 103/ul Normal 0.3-0.8 [facility] Comment on above: Performed By: #### Ina ROBERTSON, BMP #### [facility] [address] [place] [address] Dr. Skylar Chadwick Monocytes/100 WBC (Bld) 10.9 % Normal 1.7-12.0 [facility] Comment on above: Performed By: #### C AILYN, BMP #### [facility] [address] [place] [address] Dr. Skylar Chadwick NEUT # 4.0 103/ul Normal 1.4-6.5 [facility] Comment on above: Performed By: #### C AILYN, BMP #### [facility] [address] [place] [address] Dr. Skylar Chadwick Neutrophils/100 WBC (Bld) 55.0 % Normal 43.0-75.0 [facility] Comment on above: Performed By: #### C AILYN, BMP #### [facility] [address] [place] [address] Dr. Skylar Chadwick Platelet mean volume (Bld) [Entitic vol] 10.3 fL Normal 9.5-13.5 [facility] Comment on above: Performed By: #### C AILYN, BMP #### [facility] [address] [place], [place] [id number] Dr. Skylar Chadwick PLT 289 103/ul Normal 150-450 [facility] Comment on above: Performed By: #### C MADM, BMP #### [facility] [address] [address] [address] Skylar Chadwick RBC 4.17 106/ul Critically low 4.70-6.10 [facility] Comment on above: Performed By: #### C MADM, BMP #### [facility] [address] [address] [address] Skylar Chadwick WBC 7.2 103/ul Normal 4.0-11.0 [facility] Comment on above: Performed By: #### C MADM, BMP #### [facility] [address] [address] [address] Skylar Chadwick CRPon 11-02-2022 CRP 1.3 mg/dL Critically high <=1.0 [facility] Comment on above: Performed By: #### U EFRAÍN, CMP, CRP #### [facility] [address] [address] [address] Skylar Chadwick Office Visiton 11-02-2022 Follow-up visit [id number] Dominik Doherty ert 1955 M Date Provider Department Center 11/02/2022 MILDRED BOND [facility] Family History Problem Relation Age of Onset Other Mother Family Status - Relation Status Age at Mother Level of Service:07511 MS OFFICE/OUTPATIENT ESTABLISHED MOD MDM 30-39 MIN Reason for Visit and Comments: Follow-up [900852] - 2 month and Echo results. Normal [facility] PROF 14(COMP METB)on 023 Albumin [Mass/Vol] 3.4 g/dL Normal 3.4-5.0 [facility] Comment on above: Performed By: #### U EFRAÍN, CMP, CRP #### [facility] [address] [address] [address] Skylar Chadwick Albumin/Globulin [Mass ratio] 0.7 {ratio} Normal [facility] Comment on above: Performed By: #### U EFRAÍN, CMP, CRP #### [facility] [address] [address] [address] Skylar Chadwick ALP [Catalytic activity/Vol] 72 U/L Normal 46-116 [facility] Comment on above: Performed By: #### U EFRAÍN, CMP, CRP #### [facility] [address] [address] [address] Skylar Chadwick ALT [Catalytic activity/Vol] 28 U/L Normal 16-63 [facility] Comment on above: Performed By: #### U EFRAÍN, CMP, CRP #### [facility] [address] [address] [address] Skylar Chadwick Anion gap [Moles/Vol] 9.9 mmol/L Normal [facility] Comment on above: Performed By: #### U EFRAÍN, CMP, CRP #### [facility] [address] [address] [address] Skylar Chadwick AST [Catalytic activity/Vol] 19 U/L Normal 15-37 [facility] Comment on above: Performed By: #### U EFRAÍN, CMP, CRP #### [facility] [address] [address] [address] Skylar Chadwick Bilirubin [Mass/Vol] 0.3 mg/dL Normal 0.2-1.0 [facility] Comment on above: Performed By: #### U EFRAÍN, CMP, CRP #### [facility] [address] [address] [address] Skylar Chadwick Calcium [Mass/Vol] 9.8 mg/dL Normal 8.5-10.1 [facility] Comment on above: Performed By: #### U EFRAÍN, CMP, CRP #### [facility] [address] [address] [address] Skylar Chadwick Chloride [Moles/Vol] 103 mmol/L Normal 98-107 [facility] Comment on above: Performed By: #### U EFRAÍN, CMP, CRP #### [facility] [address] [address] [address] Skylar Chadwick CO2 [Moles/Vol] 31.0 mmol/L Normal 21.0-32.0 [facility] Comment on above: Performed By: #### U EFRAÍN, CMP, CRP #### [facility] [address] [address] [address] Skylar Chadwick Creatinine [Mass/Vol] 1.14 mg/dL Normal 0.70-1.30 [facility] Comment on above: Performed By: #### U EFRAÍN, CMP, CRP #### [facility] [address] [address] [address] Skylar Chadwick EGFR-AF PORTUGUESE >60 Normal >=60 [facility] Comment on above: Performed By: #### U EFRAÍN, CMP, CRP #### [facility] [address] [address] [address] Skylar Chadwick EGFR-NON AF PORTUGUESE >60 Normal >=60 [facility] Comment on above: Performed By: #### U EFRAÍN, CMP, CRP #### [facility] [address] [address] [address] Skylar Chadwick Globulin (S) [Mass/Vol] 4.8 g/dL Normal [facility] Comment on above: Performed By: #### U EFARÍN, CMP, CRP #### [facility] [address] [address] [address] Skylar Chadwick Glucose [Mass/Vol] 88 mg/dL Normal 74-106 [facility] Comment on above: Performed By: #### U EFRAÍN, CMP, CRP #### [facility] [address] [address] [address] Skylar Chadwick Potassium [Moles/Vol] 3.9 mmol/L Normal 3.5-5.1 [facility] Comment on above: Performed By: #### U EFRAÍN, CMP, CRP #### [facility] [address] [address] [address] Skylar Chadwick Protein [Mass/Vol] 8.2 g/dL Normal 6.4-8.2 [facility] Comment on above: Performed By: #### U EFRAÍN, CMP, CRP #### [facility] [address] [address] [address] Skylar Chadwick Sodium [Moles/Vol] 140 mmol/L Normal 136-145 [facility] Comment on above: Performed By: #### U EFRAÍN, CMP, CRP #### [facility] [address] [address] [address] Skylar Chadwick Urea nitrogen [Mass/Vol] 18.0 mg/dL Normal 7.0-18.0 [facility] Comment on above: Performed By: #### U EFRAÍN, CMP, CRP #### [facility] [address] [address] [address] Skylar Chadwick Urea nitrogen/Creatinine [Mass ratio] 15.8 mg/mg Normal [facility] Comment on above: Performed By: #### U EFRAÍN, CMP, CRP #### [facility] [address] [address] [address] Skylar Chadwick SED RATE HOLDINGFORDERGRENon 2022 SED RATE 67 mm/hr Critically high <=20 [facility] Comment on above: Performed By: #### C MADM, BMP #### [facility] [address] [address] [address] Skylar Chadwick URIC ACID SERUMon 11-02-2022 Urate [Mass/Vol] 3.3 mg/dL Critically low 3.5-7.2 [facility] Comment on above: Performed By: #### U EFRAÍN, CMP, CRP #### [facility] [address] [address] [address] Skylar Chadwick XR KNEE LT 3Von 11-02-2022 XR KNEE LT 3V EXAM: XR KNEE LT 3V HISTORY: Effusion of joint of left knee COMPARISON: None. TECHNIQUE: 3 views FINDINGS: There is no acute fracture or dislocation. No radiopaque foreign body. The soft tissues are unremarkable. IMPRESSION: No acute fracture or dislocation. Electronically authenticated by: BONNIE RODRIGUES Date: 2022-11-02 14:46 Normal [facility] ECHOCARDIO M/2D COMPLETEon 0 10-28-2022 ECHOCARDIO M/2D COMPLETE Patient: KRISTY DOHERTY Exam Date: 10/28/2022 : 1955 Gender:M Ordering : DR BORIS KIM M.D. Admission #: [id number] Family : Order #: [id number] CLICK HERE TO VIEW EXAM ECHOCARDIOGRAM REPORT PROCEDURE: CARDIO PULMONARY ECHOCARDIO M/2D COMP INDICATIONS: Chronic systolic congestive heart failure, AICD COMPARISON: None. DESCRIPTION: COMPLETE ECHOCARDIOGRAM Real-time transthoracic echocardiography with 2D, M-mode, spectral and color flow Doppler performed. QUALITY: Technical quality was good. LEFT VENTRICLE: Mild dilatation. Normal left ventricular wall thickness. Systolic function is moderately to severely reduced. There is global hypokinesis. LV EF: Moderately to severely reduced left ventricular ejection fraction, (25-30%). DIASTOLIC: Grade I diastolic dysfunction. ATRIAL SEPTUM: Visually appears intact. LEFT ATRIUM: Normal chamber size. RIGHT ATRIUM: Mild dilatation. RIGHT VENTRICLE: Normal chamber size. Normal systolic function. Pacer wire present. TRICUSPID VALVE: Normal mobility and thickness. No stenosis with mild regurgitation. Doppler studies reveal mildly (35-45) elevated right sided pressures. RVSP 37 mmHg MITRAL VALVE: Normal mobility and thickness. No evidence of mitral valve stenosis. There is no mitral annular calcification. Mild mitral regurgitation. AORTIC VALVE: Normal trileaflet appearance. No visible sclerosis. Normal leaflet mobility. No evidence of aortic valve stenosis. Mild aortic regurgitation. AORTIC ROOT: Normal diameter and appearance. PULMONIC VALVE: Normal thickness and mobility. No stenosis. Trivial regurgitation. PERICARDIUM: No evidence of pericardial effusion. IVC: Collapses with inspirations. PLEURA: CONCLUSION: 1. Ventricular systolic function is moderately to severely reduced with global hypokinesis. LVEF is 25 to 30%. 2. The right ventricle is normal in size with normal systolic function. 3. Mild mitral, tricuspid and aortic regurgitation. 4. Mildly elevated right-sided pressures. Adult Echocardiography Procedure Report Left Ventricle LVEDD (3.7 - 5.6 cm): 6.11 cm LVESD (2.2 - 4.0 cm): 4.82 cm LVIVS thickness (0.6 - 1.2 cm): 0.88 cm LVPW thickness (0.5 - 1.0 cm): 0.96 cm e': 0.10 m/s E - e': 5.20 LVOT Max Gradient: 3.23 mm[Hg] Peak Velocity (LVOT): 0.90 m/s LVOT Diameter 2.55 cm Left Ventricular Ejection Fraction: 25-30% Left Atrium LA Volume Index (2D A2C): 64.39 ml, 64.39 ml Left Atrium Systolic Dimension: 3.49 cm Mitral Valve MV E to A Ratio: 0.62 Mitral Valve A-Wave Peak Velocity: 0.84 m/s Mitral Valve E-Wave Peak Velocity: 0.52 m/s Right Ventricle Aorta AO Root Diam: 3.42 cm Aortic Valve AoV Area (Peak Stanley): 2.41 cm2, 2.44 cm2 Peak Velocity(Antegrade Flow): 1.87 m/s, 1.91 m/s Peak Gradient(Antegrade Flow): 13.99 mm[Hg], 14.64 mm[Hg] Mean Velocity(Antegrade Flow): 1.32 m/s, 1.32 m/s Mean Gradient(Antegrade Flow): 8.03 mm[Hg], 7.96 mm[Hg] Velocity Time Integral: 35.55 cm, 35.32 cm Tricuspid Valve Peak Velocity (Regurgitant Flow): 2.90 m/s Peak Velocity: 0.52 m/s Pulmonic Valve Peak Velocity: 1.31 m/s, 1.39 m/s Peak Gradient: 6.87 mm[Hg], 7.72 mm[Hg] Right Atrium Right Atrium Systolic Pressure: 45.86 ml, 45.86 ml Dictated by: Boris Kim M.D. on 10/30/2022 at 19:15 Approved by: Boris Kim M.D. on 10/30/2022 at 19:19 [facility] Office Visiton 09-15-2022 Follow-up visit [id number] Dominik Doherty ert 1955 M Date Provider Department Center 09/15/2022 Brett-MILDRED BENJAMIN [facility] Family History Problem Relation Age of Onset Other Mother Family Status - Relation Status Age at Mother Level of Service:72792 MS POSTOP FOLLOW UP VISIT RELATED TO ORIGINAL PX Normal [facility] XR CHEST 2 Von 09-05-2022 XR CHEST 2 V EXAM: XR CHEST 2 V HISTORY: . Automatic implantable cardiac defibrillator in situ . COMPARISON: None. TECHNIQUE: Frontal and lateral chest FINDINGS: Heart and vascularity are unremarkable. Bipolar pacing device is noted entering from the left. One lead overlies right atrium and the second over the right ventricle. Vascularity is unremarkable. Lungs are free of focal infiltrates. Spondylosis of the spine is noted. IMPRESSION: 1. Bipolar pacing device noted. 2. No pneumothorax. 3. No acute heart or lung disease identified. Electronically authenticated by: ASIF COLVIN Date: 2022-09-05 15:49 Normal [facility] BASIC METABOLIC PANELon 08-19 Anion gap [Moles/Vol] 13 mmol/L Normal 7-20 [facility] Comment on above: Performed By: #### L [id number] #### [facility] ([facility]) [address] [place] [address] Calcium [Mass/Vol] 8.7 mg/dL Normal 8.6-10.[address] [facility] Comment on above: Performed By: #### L [id number] #### [facility] ([facility]) [address] [place] [address] Chloride [Moles/Vol] 101 mmol/L Normal 98-107 [facility] Comment on above: Performed By: #### L [id number] #### [facility] ([facility]) [address] [place] [address] CO2 [Moles/Vol] 25 mmol/L Normal 21-31 [facility] Comment on above: Performed By: #### L [id number] #### [facility] ([facility]) [address] [place] [address] Creatinine [Mass/Vol] 1.10 mg/dL Normal 0.70-1.30 [facility] Comment on above: Performed By: #### L [id number] #### [facility] ([facility]) [address] [place] [address] GLOMERULAR FILTRATION RATE ML/MIN/1.73 SQ M.PREDICTED 69.6 mL/min/1.73m*2 Normal >60.0 [facility] Comment on above: Result Comment: The [facility]???s estimated glomerular filtration rate (eGFR) will no longer include consideration of race in its calculation. The National Kidney Foundation???s eGFR Task Force developed new recommendations for the estimation of the glomerular filtration rate in the [place] They recommend immediate implementation of the new equation refit without the race variable in all laboratories because the calculation does not include race. In addition to not including race in the calculation and reporting, it included diversity in its development, and has acceptable performance characteristics and potential consequences that do not disproportionately affect any one group of individuals. Performed By: #### L [id number] #### [facility] ([facility]) [address] [place] [address] Glucose [Mass/Vol] 112 mg/dL High 70-[address] [facility] Comment on above: Performed By: #### L [id number] #### [facility] ([facility]) [address] [place] [address] Potassium [Moles/Vol] 3.9 mmol/L Normal 3.5-5.1 [facility] Comment on above: Performed By: #### L [id number] #### [facility] ([facility]) [address] [place] [address] Sodium [Moles/Vol] 135 mmol/L Low 136-[address] [facility] Comment on above: Performed By: #### L [id number] #### [facility] ([facility]) [address] [place] [address] Urea nitrogen [Mass/Vol] 30 mg/dL High 7-25 [facility] Comment on above: Performed By: #### L [id number] #### [facility] ([facility]) [address] [place] [address] UREA NITROGEN/CREATININE (MASS RATIO) IN SER/PLAS 27.27 Normal [facility] Comment on above: Performed By: #### L [id number] #### [facility] ([facility]) [address] [place] [address] CBCon 09-04-2022 Erythrocyte distribution width (RBC) [Ratio] 12.7 % Normal 11.5-15.0 [facility] Comment on above: Performed By: #### L [id number] ####[facility] ([facility])[address] [place] [address] ERYTHROCYTE MEAN CORPUSCULAR HEMOGLOBIN CONCENTRATION (G/DL) BY AUTOMATED 32.9 g/dL Normal 32.0-35.0 [facility] Comment on above: Performed By: #### L [id number] ####[facility] ([facility])[address] [place] [address] Hematocrit (Bld) [Volume fraction] 39.2 % Normal 39.0-55.0 [facility] Comment on above: Performed By: #### L [id number] ####[facility] ([facility])[address] [place] [address] Hemoglobin (Bld) [Mass/Vol] 12.9 g/dL Low 13.0-17.0 [facility] Comment on above: Performed By: #### L [id number] ####[facility] ([facility])[address] [place] [address] MCH (RBC) [Entitic mass] 29.8 pg Normal 27.0-33.0 [facility] Comment on above: Performed By: #### L [id number] ####[facility] ([facility])[address] [place] [address] MCV (RBC) [Entitic vol] 90.5 fL Normal 82.0-98.0 [facility] Comment on above: Performed By: #### L [id number] ####[facility] ([facility])[address] [place] [address] PLATELETS (10*3/UL) IN BLOOD AUTOMATED COUNT 425 10*3/uL High 150-400 [facility] Comment on above: Performed By: #### L [id number] ####[facility] ([facility])[address] [place] [address] RBC (Bld) [#/Vol] 4.33 10*6/uL Normal 4.20-5.70 [facility] Comment on above: Performed By: #### L [id number] ####[facility] ([facility])[address] [place] [address] WBC (Bld) [#/Vol] 10.96 10*3/uL High 4.00-10.60 [facility] Comment on above: Performed By: #### L [id number] ####[facility] ([facility])[address] [place] [address] DSon 09-04-2022 DS Admission Admitted 09/04/2022 for Chronic systolic heart failure for ICD implant Discharge Diagnosis Discharge Disposition Home or Self Care Discharge Medications Your medication list START taking these medications Instructions Last Dose Given Next Dose Due doxycycline 100 mg tablet Commonly known as: Vibra-Tabs Take 1 tablet (100 mg) by mouth in the morning and at bedtime for 10 days. Take with a full glass of water and do not lie down for at least 30 minutes after. CONTINUE taking these medications Instructions Last Dose Given Next Dose Due albuterol 90 mcg/actuation inhaler allopurinol 300 mg tablet Commonly known as: Zyloprim aspirin 81 mg chewable tablet Chew 1 tablet (81 mg) in the morning. atorvastatin 40 mg tablet Commonly known as: Lipitor Take 1 tablet (40 mg) by mouth at bedtime. dapagliflozin 10 mg Commonly known as: Farxiga Take 1 tablet (10 mg) by mouth in the morning. Dupixent Pen 300 mg/2 mL pen injector Generic drug: dupilumab fluticasone 50 mcg/actuation nasal spray Commonly known as: Flonase fluticasone propion-salmeteroL 250-50 mcg/dose diskus inhaler Commonly known as: Advair Diskus metoprolol succinate XL 50 mg 24 hr tablet Commonly known as: Toprol-XL Take 1 tablet (50 mg) by mouth in the morning for 97 doses. Do not crush or chew. Do not start before July 05, 2022. naproxen 500 mg tablet Commonly known as: Naprosyn predniSONE 10 mg tablet Commonly known as: Deltasone sacubitriL-valsartan 24-26 mg tablet Commonly known as: Entresto Take 1 tablet by mouth in the morning and at bedtime. spironolactone 25 mg tablet Commonly known as: Aldactone Take 0.5 tablets (12.5 mg) by mouth in the morning. Where to Get Your Medications You can get these medications from any pharmacy Bring a paper prescription for each of these medications doxycycline 100 mg tablet sacubitriL-valsartan 24-26 mg tablet Activity Patient currently has no discharge activity orders Diet Patient currently has no discharge diet orders Allergies Patient has no known allergies. Hospital Course DUAL CHAMBER ICD IMPLANT PROCEDURE NOTE DATE OF PROCEDURE: 09/04/2022 PERFORMING PHYSICIAN: Dr. Bobo Raymond CONSENT: Patient LOCATION: EP Lab PROCEDURE PERFORMED: 1. Implantation of dual chmaber ICD ([employer]): submuscular implant 2. Ultrasound guided venous access INDICATIONS: 1. Dilated ischemic cardiomyopathy 2. NYHA class II-III PROCEDURAL SEDATION: Versed and Fentanyl. Moderate sedation was administered by the sedation nurse under my supervision and noted in the CVL log. Intraprocedural face to face sedation time: 71min. Monitoring: Cardiac telemetry, Blood pressure, continuous pulse oxymetry. FLUOROSCOPY TIME: 2min 24sec/ 10mGray. EBL: 25cc SPECIMEN REMOVED: None PREPARATION: 66 year old with past medical history of acute onset systolic heart failure, hypertension, syncope and collapse was noted with systolic heart failure with EF 25% with global hypokinesis. EKG showed PVCs and PACs. His who is with him states that this was a sudden sybncope suggestiove of a cardiac etiology. His EF has remained low despite GDMT. PROCEDURAL DETAILS: Patient was placed in trendelenberg position and ultrasound was used to evaluate the patency of left axillary vein and for venous access. Left axillary venous access was obtained using modified seldinger technique using a 5 [place]uran micro-puncture needle on two occasions and 0.35 wires were placed. Local infiltration of 1% Lidocaine was performed, and an incision was created in the left upper chest. Dissection was then performed using cautery down to the fascial plane above the muscle. The belly of the pectoralis was identified and with gentle blunt dissection a small pocket was created for the device in submuscular fashion. 6 and 8 [place] Safesheaths were placed over the wire. An active fixation [employer] ICD lead was then delivered through the 8Fsheath to the right ventricle. After confirmation of lead position on orthogonal views (VARGAS and SLOVAK) to confirm septal position, the screw was activated, and the lead was placed in the right ventricular mid cavity towards the septum. After confirmation of good sensing parameters, injury pattern and pacing thresholds, 10V pacing was done and no diaphragmatic stimulation was noted. It was then secured in the pocket using three 1-0 Silk sutures. Then an active fixation [employer] lead was delivered through the 6Fsheath to the right atrial appendage. After confirmation of lead position on orthogonal views (VARGAS and SLOVAK), the screw was activated. Good sensing parameters, injury pattern and pacing thresholds, the lead was then tested using Lambert's maneuver. 10V pacing was done and no diaphragmatic stimulation was noted. It was then secured in the pocket using three 1-0 Silk sutures. Pocket hemostasis was secured, and it was then copier technician (more content not included)... [facility] HPon 09-04-2022 H&P reviewed. The patient was examined and there are no changes to the H&P. [facility] NURSNOTEon 09-04-2022 NURSNOTE CHG wipes done. Normal [facility] Orders Onlyon 09-04-2022 Orders Only [id number] Dominik Doherty ert 1955 M Date Provider Department Center 09/04/2022 REINALDO RAI [facility] VASC LAB [place] [facility] Family History Problem Relation Age of Onset Other Mother Family Status - Relation Status Age at Mother [facility] 29on 09-01-2022 29 Addended by: MARTHA WOODS on: 09/02/2022 08:04 AM Modules accepted: [facility] Electrophysiology Note Reason for follow up: ADHF and syncope HPI: Kristy Doherty is a 66 y.o. year old with past medical history of acute onset systolic heart failure, hypertension, syncope and collapse was recently admitted to [facility] for syncope and had a TTE which show new systolic heart failure with EF 25% with global hypokinesis. He had no prior symptoms to this event. EKG showed PVCs and PACs. He had bilateral carotid artery ultrasound which should 0-49% flow stenosis. CT head negative for intracranial concerns. He was transferred to [facility] for heart cath. His who is with him states that this was a sudden sybncope suggestiove of a cardiac etiology. He was discharged with a LifeVest and his recent presyncope and falls concerns for possible VT/VF. He was discharged on metoprolol 50 mg daily and Entresto 24/26 mg twice daily. Since recent discharge, he had another episode but the device did not fire. He has not had any heart failure symptoms and was shocked by the results of the event. He has had his lifevest beep at him several times for possible placement issues. Review of Systems Constitutional: Negative for diaphoresis, fever and malaise/fatigue. Cardiovascular: Positive for syncope. Negative for chest pain, dyspnea on exertion, leg swelling and orthopnea. Respiratory: Negative for shortness of breath and sleep disturbances due to breathing. Neurological: Negative for light-headedness and weakness. All other systems reviewed and are negative. PMH: Past Medical History: Diagnosis Date Asthma 07/29/2012 CHF (congestive heart failure) ([facility]) Coronary artery disease History of malignant neoplasm of prostate 07/03/2022 Hypertension 07/03/2022 PSH: Past Surgical History: Procedure Laterality Date BAND HEMORRHOIDECTOMY CARDIAC CATHETERIZATION PROSTATECTOMY SINUS SURGERY SH: Social Determinants of Health Tobacco Use: Medium Risk Smoking Tobacco Use: Former Smokeless Tobacco Use: Never Passive Exposure: Not on file Alcohol Use: Not on file Financial Resource Strain: Not on file Food Insecurity: Not on file Transportation Needs: Not on file Physical Activity: Not on file Stress: Not on file Social Connections: Not on file Intimate Partner Violence: Not on file Depression: Not on file Housing Stability: Not on file Allergies: No Known Allergies Weight: No results found for: PTWEIGHT Meds: Current Outpatient Medications on File Prior to Visit Medication Sig Dispense Refill albuterol 90 mcg/actuation inhaler Inhale 2 puffs every 4 (four) hours if needed for wheezing. aspirin 81 mg chewable tablet Chew 1 tablet (81 mg) in the morning. 30 tablet 11 atorvastatin (Lipitor) 40 mg tablet Take 1 tablet (40 mg) by mouth at bedtime. 90 tablet 3 dapagliflozin (Farxiga) 10 mg Take 1 tablet (10 mg) by mouth in the morning. 90 tablet 3 fluticasone (Flonase) 50 mcg/actuation nasal spray Administer 2 sprays into each nostril in the morning. Shake gently. Before first use, prime pump. After use, clean tip and replace cap. fluticasone propion-salmeteroL (Advair Diskus) 250-50 mcg/dose diskus inhaler Inhale 1 puff in the morning and at bedtime. Rinse mouth with water after use to reduce aftertaste and incidence of candidiasis. Do not swallow. metoprolol succinate XL (Toprol-XL) 50 mg 24 hr tablet Take 1 tablet (50 mg) by mouth in the morning for 97 doses. Do not crush or chew. Do not start before July 05, 2022. 30 tablet 3 naproxen (Naprosyn) 500 mg tablet Take 500 mg by mouth with breakfast and with evening meal. sacubitriL-valsartan (Entresto) 24-26 mg tablet Take 1 tablet by mouth in the morning and at bedtime for 195 doses. 60 tablet 1 spironolactone (Aldactone) 25 mg tablet Take 0.5 tablets (12.5 mg) by mouth in the morning. 45 tablet 3 [DISCONTINUED] montelukast (Singulair) 10 mg tablet 1 (one) time each day at the same time. [DISCONTINUED] saccharomyces boulardii (Florastor) 250 mg capsule 1 capsule every 12 (twelve) hours. [DISCONTINUED] allopurinol (Zyloprim) 300 mg tablet [DISCONTINUED] cetirizine (ZyrTEC) 10 mg tablet 1 (one) time each day at the same time. [DISCONTINUED] dupilumab (DUPIXENT SYRINGE SUBQ) Inject under the skin. [DISCONTINUED] hydroCHLOROthiazide (HYDRODiuril) 25 mg tablet Take 25 mg by mouth in the morning. [DISCONTINUED] methylPREDNISolone (Medrol Dospak) 4 mg tablets use as directed FOLLOW DIRECTIONS ON BACK OF FOIL PACK [DISCONTINUED] predniSONE (Deltasone) 10 mg tablet take 2 tablets four times a day for 2 days then 1 AND 1/2 tablets... (REFER TO PRESCRIPTION NOTES). [DISCONTINUED] simvastatin (Zocor) 40 mg tablet Take 40 mg by mouth in the morning. No current facility-administered medications on file prior to visit. Physical Exam: Constitutional General Appearance: well-nourished, well-developed, appears stated age Level of Distress: comfortable Psychiatric Mental (more content not included)... Normal [facility] Office Visiton 09-01-2022 Follow-up visit [id number] Dominik Doherty 1955 M Date Provider Department Center 09/01/[address] [facility] Family History Problem Relation Age of Onset Other Mother Family Status - Relation Status Age at Mother Level of Service:[id number] MS OFFICE/OUTPATIENT NEW HIGH MDM 60-74 MINUTES Reason for Visit and Comments: Hypertension [579677] Coronary Artery Disease [187] Normal [facility] Office Visiton 08-24-2022 Follow-up visit [id number] Dominik Doherty ert 1955 M Date Provider Department Center 08/24/2022 BORIS COONEY ALON Goldberg Family History Problem Relation Age of Onset Other Mother Family Status - Relation Status Age at Mother Level of Service:[id number] MS OFFICE/OUTPATIENT ESTABLISHED HIGH MDM 40-54 MIN Reason for Visit and Comments: Congestive Heart Failure [127] Coronary Artery Disease [187] Syncope [506] Normal [facility] ECHOCARDIO M/2D COMPLETEon 0 08-18-2022 ECHOCARDIO M/2D COMPLETE Patient: KRISTY DOHERTY Exam Date: 08/18/2022 : 1955 Gender:M Ordering : MILDRED BENJAMIN Admission #: [id number] Family : Order #: [id number] CLICK HERE TO VIEW EXAM ECHOCARDIOGRAM REPORT PROCEDURE: CARDIO PULMONARY ECHOCARDIO M/2D COMP INDICATIONS: Acute on chronic systolic heart failure with reduced ejection fraction COMPARISON: None. DESCRIPTION: COMPLETE ECHOCARDIOGRAM Real-time transthoracic echocardiography with 2D, M-mode, spectral and color flow Doppler performed. QUALITY: Technical quality was good. LEFT VENTRICLE: Normal chamber size. Normal left ventricular wall thickness. Left ventricular systolic function is severely reduced with global hypokinesis. LV EF: Visual estimation of left ventricular ejection fraction is severely reduced at 25-30%. DIASTOLIC: Grade I diastolic dysfunction. ATRIAL SEPTUM: LEFT ATRIUM: Moderate dilatation. RIGHT ATRIUM: Mild dilatation. RIGHT VENTRICLE: Normal chamber size. Normal right ventricular systolic function. TRICUSPID VALVE: Normal mobility and thickness. No stenosis with mild regurgitation. Mild pulmonary hypertension. RVSP 37 mmHg MITRAL VALVE: Normal mobility and thickness. No mitral valve prolapse. No evidence of mitral valve stenosis. Mild mitral regurgitation. AORTIC VALVE: Normal trileaflet appearance. No visible sclerosis. Normal leaflet mobility. No evidence of aortic valve stenosis. Mild aortic regurgitation. AORTIC ROOT: Normal diameter and appearance. PULMONIC VALVE: Normal thickness and mobility. No stenosis. Trivial regurgitation. PERICARDIUM: No evidence of pericardial effusion. IVC: Collapses with inspirations. Normal size PLEURA: CONCLUSION: 1. Left ventricular systolic function is severely reduced. LVEF is 25 to 30%. 2. Normal right ventricular size and systolic function. 3. Moderate left atrial dilatation. 4. Mild aortic, mitral and tricuspid regurgitation. 5. Mildly elevated right-sided pressures. 6. No pericardial effusion. Adult Echocardiography Procedure Report Left Ventricle LVEDD (3.7 - 5.6 cm): 5.31 cm LVESD (2.2 - 4.0 cm): 4.82 cm LVIVS thickness (0.6 - 1.2 cm): 1.01 cm LVPW thickness (0.5 - 1.0 cm): 1.08 cm e': 0.04 m/s E - e': 10.74 LVOT Max Gradient: 2.65 mm[Hg] Peak Velocity (LVOT): 0.81 m/s Mean Velocity (LVOT): 0.56 m/s LVOT Diameter 1.98 cm Left Ventricular Ejection Fraction: 25-30% Left Atrium LA Volume Index (2D A2C): 81.81 ml, 81.81 ml Left Atrium Systolic Dimension: 4.42 cm Mitral Valve MV E to A Ratio: 0.61 Mitral Valve A-Wave Peak Velocity: 0.70 m/s Mitral Valve E-Wave Peak Velocity: 0.43 m/s Right Ventricle RV Internal Diastolic Dimension: 3.43 cm Aorta AO Root Diam: 3.32 cm Ascending Ao Diam: 3.26 cm Aortic Valve AoV Area (Peak Stanley): 1.91 cm2, 1.91 cm2 AoV Area (VTI): 2.22 cm2, 2.22 cm2 Deceleration [place]: 1.61 m/s2 Pressure Half-Time: 686.93 ms Peak Velocity(Antegrade Flow): 1.31 m/s Peak Gradient(Antegrade Flow): 6.84 mm[Hg] Mean Velocity(Antegrade Flow): 0.97 m/s Mean Gradient(Antegrade Flow): 4.15 mm[Hg] Velocity Time Integral: 28.53 cm Tricuspid Valve Peak Velocity (Regurgitant Flow): 1.75 m/s, 2.92 m/s, 2.63 m/s Peak Velocity: 0.41 m/s Pulmonic Valve Peak Velocity: 1.09 m/s, 1.11 m/s Peak Gradient: 4.76 mm[Hg], 4.92 mm[Hg] Right Atrium Right Atrium Systolic Pressure: 47.91 ml, 47.91 ml Dictated by: Boris Kim M.D. on 08/19/2022 at 17:19 Approved by: Boris Kim M.D. on 08/19/2022 at 17:24 [facility] 36on 07-06-2022 36 Discharge date: 07/04/2022 Call back date: 07/06/22 Spoke with: pt Follow-up: was 07/06/22 at 11:30 Home meds were reviewed with pt. Pt stated he did receive his new scripts prior to discharge. Pt was seen today for his HF follow-up so, original appt for 07/09 was canceled. Pt denied any questions or concerns. Normal [facility] Office Visiton 07-06-2022 Follow-up visit [id number] Dominik Doherty ert 1955 M Date Provider Department Center 07/06/2022 1596-MILDRED BENJAMIN CARD [facility] Family History Problem Relation Age of Onset Other Mother Family Status - Relation Status Age at Mother Level of Service:98516 MS OFFICE/OUTPATIENT ESTABLISHED LOW [facility] 20-29 MIN Reason for Visit and Comments: Congestive Heart Failure [127] Normal [facility] Telephoneon 07-06-2022 Telephone [id number] Dominik Doherty ert 1955 Provider Department Center 07/06/2022 1615-BOYD ESCALONA [facility] CARD [place] [facility] Family History Problem Relation Age of Onset Other Mother Family Status - Relation Status Age at Mother Reason for Visit and Comments: Heart Failure Discharge Call Back [Other] Normal [facility] 30on 07-04-2022 30 The patient is Moderately Stable - Low risk of patient condition declining or worsening The patient's goals for the shift include rest The clinical goals for the shift include vss Over the shift, the patient did make progress toward the following goals. Problem: Fall Risk Goal: LTG-Increase mobility and strength Outcome: Progressing Goal: LTG-No falls Outcome: Progressing Goal: STG-Uses assitive devices properly Outcome: Progressing Goal: STG-Ask for assistance before standing Outcome: Progressing Goal: STG-Allows staff to assist prior to standing and ambulating Outcome: Progressing Goal: STG-Use call light prior to getting out of bed Outcome: Progressing Problem: Cardiovascular - Adult Goal: Maintains optimal cardiac output and hemodynamic stability Outcome: Progressing Flowsheets (Taken 07/03/2022899) Maintains optimal cardiac output and hemodynamic stability: Monitor blood pressure and heart rate Monitor urine output and notify Licensed Independent Practitioner for values outside of normal range Assess for signs of decreased cardiac output Administer fluid and/or volume expanders as ordered Administer vasoactive medications as ordered Goal: Absence of cardiac dysrhythmias or at baseline Outcome: Progressing Flowsheets (Taken 07/03/2022899) Absence of cardiac dysrhythmias or at baseline: Monitor cardiac rate and rhythm Assess for signs of decreased cardiac output Administer antiarrhythmia medication and electrolyte replacement as ordered Problem: Gastrointestinal - Adult Goal: Minimal or absence of nausea and vomiting Outcome: Progressing Flowsheets (Taken 07/03/2022899) Minimal or absence of nausea and vomiting: Administer IV fluids as ordered to ensure adequate hydration Maintain NPO status until nausea and vomiting are resolved Nasogastric tube to low intermittent suction as ordered Administer ordered antiemetic medications as needed Goal: Maintains or returns to baseline bowel function Outcome: Progressing Flowsheets (Taken 07/03/2022899) Maintains or returns to baseline bowel function: Assess bowel function Encourage oral fluids to ensure adequate hydration Administer IV fluids as ordered to ensure adequate hydration Administer ordered medications as needed Goal: Maintains adequate nutritional intake Outcome: Progressing Flowsheets (Taken 07/03/2022899) Maintains adequate nutritional intake: Monitor percentage of each meal consumed Identify factors contributing to decreased intake, treat as appropriate Assist with meals as needed Monitor intake and output, weight and lab values Obtain nutritional consult as needed Goal: Establish and maintain optimal ostomy function Outcome: Progressing Flowsheets (Taken 07/03/2022899) Establish and maintain optimal ostomy function: Monitor output from ostomies Administer IV fluids and TPN as ordered Introduce and advance enteral feedings as ordered Nutrition consult Problem: Metabolic/Fluid and Electrolytes - Adult Goal: Electrolytes maintained within normal limits Outcome: Progressing Flowsheets (Taken 07/03/2022899) Electrolytes maintained within normal limits: Monitor labs and assess patient for signs and symptoms of electrolyte imbalances Administer electrolyte replacement as ordered Monitor response to electrolyte replacements, including repeat lab results as appropriate Fluid restriction as ordered Instruct patient on fluid and nutrition restrictions as appropriate Goal: Hemodynamic stability and optimal renal function maintained Outcome: Progressing Flowsheets (Taken 07/03/2022 0900) Hemodynamic stability and optimal renal function maintained: Monitor labs and assess for signs and symptoms of volume excess or deficit Monitor intake, output and patient weight Monitor urine specific gravity, serum osmolarity and serum sodium as indicated or ordered Monitor response to interventions for patient's volume status, including labs, urine output, blood pressure (other measures as available) Goal: Glucose maintained within prescribed range Outcome: Progressing Flowsheets (Taken 07/03/2022 0900) Glucose maintained within prescribed range: Monitor blood glucose as ordered Assess for signs and symptoms of hyperglycemia and hypoglycemia Administer ordered medications to maintain glucose within target range Assess barriers to adequate nutritional intake and initiate nutrition consult as needed Instruct patient on self management of diabetes and initiate consult as needed Problem: Heart Failure diagnosis knowledge deficit Goal: Patient will verbalize understanding of how heart failure affects the body Outcome: Progressing Goal: Patient will verbalize understanding of how other conditions affect the heart Outcome: Progressing Problem: Fluid retention/overload Goal: Patient will be able to identify signs and symptoms of fluid retention Outcome: Progressing Problem: Heart failure m (more content not included)... Normal [facility] 30 The patient is Moderately Stable - Low risk of patient condition declining or worsening The patient's goals for the shift include rest The clinical goals for the shift include stable vitals Over the shift, the patient made progress toward the following goals: Problem: Fall Risk Goal: LTG-No falls Outcome: Progressing Goal: STG-Uses assitive devices properly Outcome: Progressing Goal: STG-Ask for assistance before standing Outcome: Progressing Problem: Cardiovascular - Adult Goal: Absence of cardiac dysrhythmias or at baseline Outcome: Progressing Problem: Metabolic/Fluid and Electrolytes - Adult Goal: Electrolytes maintained within normal limits Outcome: Progressing Goal: Hemodynamic stability and optimal renal function maintained Outcome: Progressing Goal: Glucose maintained within prescribed range Outcome: Progressing Problem: Heart Failure diagnosis knowledge deficit Goal: Patient will verbalize understanding of how heart failure affects the body Outcome: Progressing Goal: Patient will verbalize understanding of how other conditions affect the heart Outcome: Progressing Problem: Fluid retention/overload Goal: Patient will be able to identify signs and symptoms of fluid retention Outcome: Progressing Problem: Heart failure medication adherence Goal: Consistently take heart failure medication as prescribed Outcome: Progressing Problem: Insufficient exercise regimen Goal: Patient will engage in physical activity safely Outcome: Progressing Problem: Heart failure progression and care needs Goal: Patient will verbalize understanding of heart failure progression Outcome: Progressing Problem: Heart failure maintenance Goal: Patient will not experience any symptoms of shortness of breath or body swelling over the next 3 months Outcome: Progressing Problem: Fall Risk Goal: LTG-Increase mobility and strength Outcome: Adequate for Discharge Goal: STG-Allows staff to assist prior to standing and ambulating Outcome: Adequate for Discharge Goal: STG-Use call light prior to getting out of bed Outcome: Adequate for Discharge Problem: Cardiovascular - Adult Goal: Maintains optimal cardiac output and hemodynamic stability Outcome: Adequate for Discharge Problem: Gastrointestinal - Adult Goal: Minimal or absence of nausea and vomiting Outcome: Adequate for Discharge Goal: Maintains or returns to baseline bowel function Outcome: Adequate for Discharge Goal: Maintains adequate nutritional intake Outcome: Adequate for Discharge Normal [facility] BASIC METABOLIC PANELon 12-1 Anion gap [Moles/Vol] 7 mmol/L Normal 7-20 [facility] Comment on above: Performed By: #### L [id number] #### [facility] (BEAKER) [address] [place] [place] [address] Calcium [Mass/Vol] 8.2 mg/dL Low 8.6-10.[address] [facility] Comment on above: Performed By: #### L [id number] #### [facility] (BEAKER) [address] [place] [address] Chloride [Moles/Vol] 100 mmol/L Normal 98-107 [facility] Comment on above: Performed By: #### L [id number] #### [facility] (BEAKER) [address] [place] [place] [address] CO2 [Moles/Vol] 29 mmol/L Normal 21-31 [facility] Comment on above: Performed By: #### L [id number] #### [facility] (BEAKER) [address] [place] [address] Creatinine [Mass/Vol] 0.91 mg/dL Normal 0.70-1.30 [facility] Comment on above: Performed By: #### L [id number] #### [facility] (BEAKER) [address] [place] [address] GLOMERULAR FILTRATION RATE ML/MIN/1.73 SQ M.PREDICTED 87.5 mL/min/1.73m*2 Normal >60.0 [facility] Comment on above: Result Comment: The [facility]???s estimated glomerular filtration rate (eGFR) will no longer include consideration of race in its calculation. The National [employer]???s eGFR Task Force developed new recommendations for the estimation of the glomerular filtration rate in the [place] They recommend immediate implementation of the new equation refit without the race variable in all laboratories because the calculation does not include race. In addition to not including race in the calculation and reporting, it included diversity in its development, and has acceptable performance characteristics and potential consequences that do not disproportionately affect any one group of individuals. Performed By: #### L [id number] #### [facility] ([facility]) [address] [facility] [place] [address] Glucose [Mass/Vol] 98 mg/dL Normal 70-[address] [facility] Comment on above: Performed By: #### L [id number] #### [facility] ([facility]) [address] [place] [place] [address] Potassium [Moles/Vol] 3.6 mmol/L Normal 3.5-5.1 [facility] Comment on above: Performed By: #### L [id number] #### [facility] ([facility]) [address] [place] [address] Sodium [Moles/Vol] 136 mmol/L Normal 136-[address] [facility] Comment on above: Performed By: #### L [id number] #### [facility] ([facility]) [address] [place] [address] Urea nitrogen [Mass/Vol] 14 mg/dL Normal 7-25 [facility] Comment on above: Performed By: #### L [id number] #### [facility] ([facility]) [address] [facility] [place] [address] UREA NITROGEN/CREATININE (MASS RATIO) IN SER/PLAS 15.38 Normal [facility] Comment on above: Performed By: #### L [id number] #### [facility] ([facility]) [address] [place] [address] CBCon 07-04-2022 Erythrocyte distribution width (RBC) [Ratio] 12.8 % Normal 11.5-15.0 [facility] Comment on above: Performed By: #### L [id number] #### [facility] ([facility]) [address] [place] [address] ERYTHROCYTE MEAN CORPUSCULAR HEMOGLOBIN CONCENTRATION (G/DL) BY AUTOMATED 34.5 g/dL Normal 32.0-35.0 [facility] Comment on above: Performed By: #### L [id number] #### [facility] ([facility]) [address] [place] [address] Hematocrit (Bld) [Volume fraction] 39.4 % Normal 39.0-55.0 [facility] Comment on above: Performed By: #### L [id number] #### [facility] ([facility]) [address] [place] [address] Hemoglobin (Bld) [Mass/Vol] 13.6 g/dL Normal 13.0-17.0 [facility] Comment on above: Performed By: #### L [id number] #### [facility] ([facility]) [address] [place] [address] MCH (RBC) [Entitic mass] 32.5 pg Normal 27.0-33.0 [facility] Comment on above: Performed By: #### L [id number] #### [facility] ([facility]) [address] [place] [address] MCV (RBC) [Entitic vol] 94.0 fL Normal 82.0-98.0 [facility] Comment on above: Performed By: #### L [id number] #### [facility] ([facility]) [address] [place] [address] PLATELETS (10*3/UL) IN BLOOD AUTOMATED COUNT 160 10*3/uL Normal 150-400 [facility] Comment on above: Performed By: #### L [id number] #### [facility] ([facility]) [address] [place] [address] RBC (Bld) [#/Vol] 4.19 10*6/uL Low 4.20-5.70 [facility] Comment on above: Performed By: #### L [id number] #### [facility] ([facility]) [address] [place] [address] WBC (Bld) [#/Vol] 7.75 10*3/uL Normal 4.00-10.60 [facility] Comment on above: Performed By: #### L [id number] #### [facility] ([facility]) [address] [place] [address] MAGNESIUMon 07-04-2022 Magnesium [Mass/Vol] 2.0 mg/dL Normal 1.9-2.7 [facility] Comment on above: Performed By: #### L [id number] #### [facility] ([facility]) [address] [place] [address] NURSNOTEon 07-04-2022 NURSNOTE Pt discharged home w ith in car Normal [facility] 30on 07-03-2022 30 The patient is Moderately Stable - Low risk of patient condition declining or worsening The patient's goals for the shift include comfort The clinical goals for the shift include vss Over the shift, the patient did make progress toward the following goals. Problem: Fall Risk Goal: LTG-Increase mobility and strength Outcome: Progressing Goal: LTG-No falls Outcome: Progressing Goal: STG-Uses assitive devices properly Outcome: Progressing Goal: STG-Ask for assistance before standing Outcome: Progressing Goal: STG-Allows staff to assist prior to standing and ambulating Outcome: Progressing Goal: STG-Use call light prior to getting out of bed Outcome: Progressing Problem: Cardiovascular - Adult Goal: Maintains optimal cardiac output and hemodynamic stability Outcome: Progressing Flowsheets (Taken 07/03/2022 0900) Maintains optimal cardiac output and hemodynamic stability: Monitor blood pressure and heart rate Monitor urine output and notify Licensed Independent Practitioner for values outside of normal range Assess for signs of decreased cardiac output Administer fluid and/or volume expanders as ordered Administer vasoactive medications as ordered Goal: Absence of cardiac dysrhythmias or at baseline Outcome: Progressing Flowsheets (Taken 07/03/2022899) Absence of cardiac dysrhythmias or at baseline: Monitor cardiac rate and rhythm Assess for signs of decreased cardiac output Administer antiarrhythmia medication and electrolyte replacement as ordered Problem: Gastrointestinal - Adult Goal: Minimal or absence of nausea and vomiting Outcome: Progressing Flowsheets (Taken 07/03/2022899) Minimal or absence of nausea and vomiting: Administer IV fluids as ordered to ensure adequate hydration Maintain NPO status until nausea and vomiting are resolved Nasogastric tube to low intermittent suction as ordered Administer ordered antiemetic medications as needed Goal: Maintains or returns to baseline bowel function Outcome: Progressing Flowsheets (Taken 07/03/2022899) Maintains or returns to baseline bowel function: Assess bowel function Encourage oral fluids to ensure adequate hydration Administer IV fluids as ordered to ensure adequate hydration Administer ordered medications as needed Goal: Maintains adequate nutritional intake Outcome: Progressing Flowsheets (Taken 07/03/2022899) Maintains adequate nutritional intake: Monitor percentage of each meal consumed Identify factors contributing to decreased intake, treat as appropriate Assist with meals as needed Monitor intake and output, weight and lab values Obtain nutritional consult as needed Goal: Establish and maintain optimal ostomy function Outcome: Progressing Flowsheets (Taken 07/03/2022899) Establish and maintain optimal ostomy function: Monitor output from ostomies Administer IV fluids and TPN as ordered Introduce and advance enteral feedings as ordered Nutrition consult Problem: Metabolic/Fluid and Electrolytes - Adult Goal: Electrolytes maintained within normal limits Outcome: Progressing Flowsheets (Taken 07/03/2022899) Electrolytes maintained within normal limits: Monitor labs and assess patient for signs and symptoms of electrolyte imbalances Administer electrolyte replacement as ordered Monitor response to electrolyte replacements, including repeat lab results as appropriate Fluid restriction as ordered Instruct patient on fluid and nutrition restrictions as appropriate Goal: Hemodynamic stability and optimal renal function maintained Outcome: Progressing Flowsheets (Taken 07/03/2022899) Hemodynamic stability and optimal renal function maintained: Monitor labs and assess for signs and symptoms of volume excess or deficit Monitor intake, output and patient weight Monitor urine specific gravity, serum osmolarity and serum sodium as indicated or ordered Monitor response to interventions for patient's volume status, including labs, urine output, blood pressure (other measures as available) Goal: Glucose maintained within prescribed range Outcome: Progressing Flowsheets (Taken 07/03/2022899) Glucose maintained within prescribed range: Monitor blood glucose as ordered Assess for signs and symptoms of hyperglycemia and hypoglycemia Administer ordered medications to maintain glucose within target range Assess barriers to adequate nutritional intake and initiate nutrition consult as needed Instruct patient on self management of diabetes and initiate consult as needed Problem: Heart Failure diagnosis knowledge deficit Goal: Patient will verbalize understanding of how heart failure affects the body Outcome: Progressing Goal: Patient will verbalize understanding of how other conditions affect the heart Outcome: Progressing Problem: Fluid retention/overload Goal: Patient will be able to identify signs and symptoms of fluid retention Outcome: Progressing Problem: Heart failur (more content not included)... Normal [facility] 30 The patient is Moderately Stable - Low risk of patient condition declining or worsening The patient's goals for the shift include The clinical goals for the shift include Stable VS Over the shift, the patient did not make progress toward the following goals. Barriers to progression include elyte imbalance. Recommendations to address these barriers include give elytes. Normal [facility] 30 The patient is Moderately Stable - Low risk of patient condition declining or worsening The patient's goals for the shift include replace magnesium The clinical goals for the shift include Stable VS Over the shift, the patient did not make progress toward the following goals. Barriers to progression include elyte imbalance. Recommendations to address these barriers include replace elytes. Normal [facility] APTTon 07-03-2022 ACTIVATED PARTIAL THROMBOPLASTIN TIME IN PPP BY COAGULATION ASSAY 32.9 Seconds Normal 25.0-35.0 [facility] Comment on above: Performed By: #### L [id number] #### [facility] ([facility]) [address] [place] [address] B-TYPE NATRIURETIC PEPTIDEon 07-03-2022 Natriuretic peptide B (Bld) [Mass/Vol] 511 pg/mL High 0-100 [facility] Comment on above: Performed By: #### L [id number] #### [facility] ([facility]) [address] [place] [address] Natriuretic peptide B (Bld) [Mass/Vol] 632 pg/mL High 0-100 [facility] Comment on above: Performed By: #### L [id number] ####[facility] ([facility])[address] [place] [address] CBC WITH AUTO DIFFERENTIALon 07-03-2022 Basophils (Bld) [#/Vol] 0.09 10*3/uL Normal 0.00-0.20 [facility] Comment on above: Performed By: #### L [id number] #### [facility] ([facility]) [address] [place] [address] Basophils/100 WBC (Bld) 1.2 % High 0.0-1.0 [facility] Comment on above: Performed By: #### L [id number] #### [facility] ([facility]) [address] [place] [address] Eosinophils (Bld) [#/Vol] 0.65 10*3/uL High 0.00-0.50 [facility] Comment on above: Performed By: #### L [id number] #### [facility] ([facility]) [address] [place] [address] Eosinophils/100 WBC (Bld) 8.7 % High 0.0-6.0 [facility] Comment on above: Performed By: #### L [id number] #### [facility] ([facility]) [address] [place] [address] Erythrocyte distribution width (RBC) [Ratio] 13.0 % Normal 11.5-15.0 [facility] Comment on above: Performed By: #### L [id number] #### [facility] ([facility]) [address] [place] [address] ERYTHROCYTE MEAN CORPUSCULAR HEMOGLOBIN CONCENTRATION (G/DL) BY AUTOMATED 33.8 g/dL Normal 32.0-35.0 [facility] Comment on above: Performed By: #### L [id number] #### [facility] ([facility]) [address] [place] [address] Hematocrit (Bld) [Volume fraction] 40.2 % Normal 39.0-55.0 [facility] Comment on above: Performed By: #### L [id number] #### [facility] ([facility]) [address] [place] [address] Hemoglobin (Bld) [Mass/Vol] 13.6 g/dL Normal 13.0-17.0 [facility] Comment on above: Performed By: #### L [id number] #### [facility] ([facility]) [address] [place] [address] Immature granulocytes (Bld) [#/Vol] 0.02 10*3/uL Normal 0.00-0.20 [facility] Comment on above: Performed By: #### L [id number] #### [facility] ([facility]) [address] [place] [address] Immature granulocytes/100 WBC (Bld) 0.3 % Normal 0.0-1.0 [facility] Comment on above: Performed By: #### L [id number] #### [facility] ([facility]) [address] [facility] [place] [address] Lymphocytes (Bld) [#/Vol] 2.02 10*3/uL Normal 1.20-4.00 [facility] Comment on above: Performed By: #### L [id number] #### [facility] ([facility]) [address] [place] [address] Lymphocytes/100 WBC (Bld) 27.2 % Normal 20.0-45.0 [facility] Comment on above: Performed By: #### L [id number] #### [facility] ([facility]) [address] [place] [address] MCH (RBC) [Entitic mass] 31.9 pg Normal 27.0-33.0 [facility] Comment on above: Performed By: #### L [id number] #### [facility] ([facility]) [address] [facility] [place] [address] MCV (RBC) [Entitic vol] 94.4 fL Normal 82.0-98.0 [facility] Comment on above: Performed By: #### L [id number] #### [facility] ([facility]) [address] [facility] [place] [address] Monocytes (Bld) [#/Vol] 1.07 10*3/uL High 0.10-1.00 [facility] Comment on above: Performed By: #### L [id number] #### [facility] ([facility]) [address] [place] [address] Monocytes/100 WBC (Bld) 14.4 % High 5.0-12.0 [facility] Comment on above: Performed By: #### L [id number] #### [facility] ([facility]) [address] [place] [address] Neutrophils (Bld) [#/Vol] 3.59 10*3/uL Normal 1.60-7.60 [facility] Comment on above: Performed By: #### L [id number] #### [facility] ([facility]) [address] [place] [address] Neutrophils/100 WBC (Bld) 48.2 % Normal 40.0-72.0 [facility] Comment on above: Performed By: #### L [id number] #### [facility] ([facility]) [address] [place] [address] NRBC (PER 100 WBCS) BY AUTOMATED COUNT 0.0 % Normal 0.0-0.0 [facility] Comment on above: Performed By: #### L [id number] #### [facility] ([facility]) [address] [place] [address] PLATELETS (10*3/UL) IN BLOOD AUTOMATED COUNT 177 10*3/uL Normal 150-400 [facility] Comment on above: Performed By: #### L [id number] #### [facility] ([facility]) [address] [place] [address] RBC (Bld) [#/Vol] 4.26 10*6/uL Normal 4.20-5.70 [facility] Comment on above: Performed By: #### L [id number] #### [facility] ([facility]) [address] [place] [address] WBC (Bld) [#/Vol] 7.44 10*3/uL Normal 4.00-10.60 [facility] Comment on above: Performed By: #### L [id number] #### [facility] ([facility]) [address] [place] [address] COMPREHENSIVE METABOLIC PANE Conor 07-03-2022 Albumin [Mass/Vol] 3.7 g/dL Normal 3.5-5.[address] [facility] Comment on above: Performed By: #### L [id number] #### [facility] ([facility]) [address] [place] [address] ALP [Catalytic activity/Vol] 52 U/L Normal 34-104 [facility] Comment on above: Performed By: #### L [id number] #### [facility] ([facility]) [address] [place] [address] ALT [Catalytic activity/Vol] 46 U/L Normal 7-52 [facility] Comment on above: Performed By: #### L [id number] #### [facility] ([facility]) [address] [place] [address] Anion gap [Moles/Vol] 8 mmol/L Normal 7-20 [facility] Comment on above: Performed By: #### L [id number] #### [facility] ([facility]) [address] [place] [address] AST [Catalytic activity/Vol] 46 U/L High 13-39 [facility] Comment on above: Performed By: #### L [id number] #### [facility] ([facility]) [address] [place] [address] Bilirubin [Mass/Vol] 1.2 mg/dL High 0.3-1.0 [facility] Comment on above: Performed By: #### L [id number] #### [facility] ([facility]) [address] [place] [address] Calcium [Mass/Vol] 8.5 mg/dL Low 8.6-10.[address] [facility] Comment on above: Performed By: #### L [id number] #### [facility] ([facility]) [address] [place] [address] Chloride [Moles/Vol] 99 mmol/L Normal 98-107 [facility] Comment on above: Performed By: #### L [id number] #### [facility] ([facility]) [address] [place] [address] CO2 [Moles/Vol] 29 mmol/L Normal 21-31 [facility] Comment on above: Performed By: #### L [id number] #### [facility] ([facility]) [address] [place] [address] Creatinine [Mass/Vol] 1.06 mg/dL Normal 0.70-1.30 [facility] Comment on above: Performed By: #### L [id number] #### [facility] ([facility]) [address] [place] [address] GLOMERULAR FILTRATION RATE ML/MIN/1.73 SQ M.PREDICTED 72.8 mL/min/1.73m*2 Normal >60.0 [facility] Comment on above: Result Comment: The [facility]???s estimated glomerular filtration rate (eGFR) will no longer include consideration of race in its calculation. The [employer]???s eGFR Task Force developed new recommendations for the estimation of the glomerular filtration rate in the [place] They recommend immediate implementation of the new equation refit without the race variable in all laboratories because the calculation does not include race. In addition to not including race in the calculation and reporting, it included diversity in its development, and has acceptable performance characteristics and potential consequences that do not disproportionately affect any one group of individuals. Performed By: #### L [id number] #### [facility] ([facility]) [address] [place] [address] Glucose [Mass/Vol] 107 mg/dL High 70-[address] [facility] Comment on above: Performed By: #### L [id number] #### [facility] ([facility]) [address] [place] [address] Potassium [Moles/Vol] 3.8 mmol/L Normal 3.5-5.1 [facility] Comment on above: Performed By: #### L [id number] #### [facility] ([facility]) [address] [place] [address] Protein [Mass/Vol] 6.9 g/dL Normal 6.0-8.[address] [facility] Comment on above: Performed By: #### L [id number] #### [facility] ([facility]) [address] [place] [address] Sodium [Moles/Vol] 136 mmol/L Normal 136-[address] [facility] Comment on above: Performed By: #### L [id number] #### [facility] ([facility]) [address] [place] [address] Urea nitrogen [Mass/Vol] 15 mg/dL Normal 7-25 [facility] Comment on above: Performed By: #### L [id number] #### [facility] ([facility]) [address] [place] [address] UREA NITROGEN/CREATININE (MASS RATIO) IN SER/PLAS 14.15 Normal [facility] Comment on above: Performed By: #### L [id number] #### [facility] ([facility]) [address] [place] [address] CONSULTon 07-03-2022 CONSULT Adult Nutrition Assessment: Name: Kristy Doherty Date: 1955 Date of Visit: 07/03/22 Admission Dx: New onset of congestive heart failure (CMS/HCC) [I50.9] Reason for assessment: MD referral HF ed Past Medical History: Diagnosis Date Asthma 07/29/2012 History of malignant neoplasm of prostate 07/03/2022 Hypertension 07/03/2022 Information obtained from: patient, family, medical record, and nursing Allergies: No Known Allergies Current Medications: fluticasone, 2 spray, Each Nostril, Daily fluticasone propion-salmeteroL, 2 puff, inhalation, BID heparin (porcine), 5,000 Units, subcutaneous, TID metoprolol succinate XL, 50 mg, oral, Daily sacubitriL-valsartan, 1 tablet, oral, BID Anthropometrics: Height: 172.7 cm (5' 8 ) Weight: 80.6 kg (177 lb 11.1 oz) BMI (Calculated): 27.02 Diet Info: Dietary Orders (From admission, onward) Start Ordered 07/03/22 1110 Regular Diet Yes Diet effective now Question Answer Comment Room Service? Yes Fat restriction: Heart Healthy/HTN, CABG,Stroke, (2gNA, low fat, low cholesterol) 07/03/22 1109 Labs: 0 Lab Value Date/Time BUN 15 07/02/20222218 CREATININE 1.06 07/02/20222218 NA 136 07/02/20222218 K 3.8 07/02/20222218 MG 1.5 (L) 07/02/20222218 HGB 13.6 07/02/20222218 WBC 7.44 07/02/20222218 I/O: Intake/Output Summary (Last 24 hours) at 07/03/2022 1550 Last data filed at 07/03/2022 1200 Gross per 24 hour Intake 480 ml Output 10 ml Net 470 ml Nutrition Data: Nutrition history: lives with who has a history of heart disease, s/p stents. She is familiar with low Na/low fat diets. Denies adding salt to foods, does occasionally use salt sub. Cooks at home mostly. May dine out 2-3 x/week. Notes some options like chicken wings, soup/salad. Has a scale at home. IBW: 70 kg Nutrition Risk: Low Nutrition Recommendations Check weight: daily Plan: -Pending ECHO, new dx of heart failure. Life vest needed on discharge -Continue diet, no nutritional risk. -Reviewed HF diet education Diet Education: Nutrition History: Compliant with diet recommendations Diet: 2g Na, low fat/low cholesterol Diet Literature: given to patient Expect Comply: good Teach back method: teach back used to show pt understanding, pt understands the importance of diet in relation to their disease, and pt able to repeat info back in own words Goals: Nutrition Goals: intake > 75% meals and compliance w/ MNT Normal [facility] CONSULT Reason For Consult Syncope and new onset HFrEF History Of Present Illness Kristy Doherty is a 66 y.o. male presenting with syncope and collapse at [facility]. 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 Denies any prodromal symptoms. When he woke, he began to continuously vomit. Upon arrival at [place], CT scan of the head showed no intracranial abnormalities and labwork showed hypokalemia. Additionally, carotid dopplers showed 0-49% flow stenosis of bilateral internal carotid arteries and echo showed 25-30% LVEF with global hypokinesis. The patient was admitted and diagnosed with HFrEF based off of lab work and cardiac workup. Echo demonstrated reduced ejection fraction of 25%-30%. Past Medical History He has a past medical history of Asthma (07/29/2012), History of malignant neoplasm of prostate (07/03/2022), and Hypertension (07/03/2022). Surgical History He has a past surgical history that includes Prostatectomy. Family History Family History Problem Relation Name Age of Onset Other (pacemaker) Mother Social History He reports that he has quit smoking. His smoking use included cigarettes. He has never used smokeless tobacco. He reports current alcohol use of about 14.0 standard drinks per week. He reports that he does not use drugs. Allergies Patient has no known allergies. Medications Medications Prior to Admission Medication Sig Dispense Refill Last Dose albuterol 90 mcg/actuation inhaler Inhale 2 puffs every 4 (four) hours if needed for wheezing. fluticasone (Flonase) 50 mcg/actuation nasal spray Administer 2 sprays into each nostril in the morning. Shake gently. Before first use, prime pump. After use, clean tip and replace cap. fluticasone propion-salmeteroL (Advair Diskus) 250-50 mcg/dose diskus inhaler Inhale 1 puff in the morning and at bedtime. Rinse mouth with water after use to reduce aftertaste and incidence of candidiasis. Do not swallow. Active Hospital Medications Medication Dose Route Frequency Last Admin acetaminophen 650 mg oral q6h PRN albuterol 2 puff inhalation q6h PRN fluticasone 2 spray Each Nostril Daily fluticasone propion-salmeteroL 2 puff inhalation BID melatonin 5 mg oral Nightly PRN ondansetron ODT 4 mg oral q8h PRN Or ondansetron 4 mg intravenous q6h PRN sodium chloride 10 mL intravenous q8h PRN Review of Systems Pt deferred, pt was in cath. Last Recorded Vitals Patient Vitals for the past 24 hrs: BP Temp Temp src Pulse Resp SpO2 Height Weight 07/03/22 0755 (!) 124/92 36.8 ???C (98.2 ???F) Oral 77 11 96 % -- -- 07/02/22 2200 (!) 130/100 -- -- 90 24 94 % -- -- 07/02/22 2154 -- -- -- -- -- -- 1.727 m (5' 8 ) 80.6 kg (177 lb 11.1 oz) Physical Exam Pt deferred, pt was in cath. Relevant Results Admission on 07/02/2022 Component Date Value Ref Range Status Sodium 07/02/2022 136 136 - 145 mmol/L Final Potassium 07/02/2022 3.8 3.5 - 5.1 mmol/L Final Chloride 07/02/2022 99 98 - 107 mmol/L Final CO2 07/02/2022 29 21 - 31 mmol/L Final Anion Gap 07/02/2022 8 7 - 20 mmol/L Final BUN 07/02/2022 15 7 - 25 mg/dL Final Creatinine 07/02/2022 1.06 0.70 - 1.30 mg/dL Final BUN/Creatinine Ratio 07/02/2022 14.15 Final Glucose 07/02/2022 107 (A) 70 - 100 mg/dL Final Calcium 07/02/2022 8.5 (A) 8.6 - 10.3 mg/dL Final AST 07/02/2022 46 (A) 13 - 39 U/L Final ALT (SGPT) 07/02/2022 46 7 - 52 U/L Final Alkaline Phosphatase 07/02/2022 52 34 - 104 U/L Final Total Protein 07/02/2022 6.9 6.0 - 8.3 g/dL Final Albumin 07/02/2022 3.7 3.5 - 5.7 g/dL Final Total Bilirubin 07/02/2022 1.2 (A) 0.3 - 1.0 mg/dL Final eGFR 07/02/2022 72.8 >60.0 mL/min/1.73m*2 Final The [facility]???s estimated glomerular filtration rate (eGFR) will no longer include consideration of race in its calculation. The National Kidney Foundation???s eGFR Task Force developed new recommendations for the estimation of the glomerular filtration rate in the [place] They recommend immediate implementation of the new equation refit without the race variable in all laboratories because the calculation does not include race. In addition to not including race in the calculation and reporting, it included diversity in its development, and has acceptable performance characteristics and potential consequences that do not disproportionately affect any one group of individuals. Magnesium 07/02/2022 1.5 (A) 1.9 - 2.7 mg/dL Final Troponin I 07/02/2022 0.04 0.00 - 0.04 ng/mL Final aPTT 07/02/2022 32.9 25.0 - 35.0 Seconds Final Protime 07/02/2022 15.4 (A) 12.3 - 14.8 Seconds Final INR 07/02/2022 1.23 (A) 0.90 - 1.10 Final [facility] RECOMMENDED INR FOR WARFARIN THERAPY CONDITION INR PROPHYLAXIS OF VENOUS THROMBOSIS 2-3 (HIGH-RISK SURGERY) TREATMENT OF VENOUS THROMBOSIS 2-3 TREATMENT OF PULMONARY EMBOLISM 2-3 PREVEN (more content not included)... [facility] HPon 07-03-2022 History Of Present Illness Kristy Doherty is a 66 y.o. male presenting with syncope to [facility]. Work up there included a TTE that revealed new systolic HF with EF around 25%. Patient denied any history of CP or [place]. He reports that he is walking all the time in his work with no limiting symptoms. EKG revealed frequent PVCs and PACs. 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 Surgical History He has a past surgical history that includes Prostatectomy. Social History He reports that he has quit smoking. His smoking use included cigarettes. He has never used smokeless tobacco. He reports current alcohol use of about 14.0 standard drinks per week. He reports that he does not use drugs. Allergies Patient has no known allergies. Medications Medications Prior to Admission Medication Sig Dispense Refill Last Dose albuterol 90 mcg/actuation inhaler Inhale 2 puffs every 4 (four) hours if needed for wheezing. fluticasone (Flonase) 50 mcg/actuation nasal spray Administer 2 sprays into each nostril in the morning. Shake gently. Before first use, prime pump. After use, clean tip and replace cap. fluticasone propion-salmeteroL (Advair Diskus) 250-50 mcg/dose diskus inhaler Inhale 1 puff in the morning and at bedtime. Rinse mouth with water after use to reduce aftertaste and incidence of candidiasis. Do not swallow. Review of Systems All other systems reviewed and are negative. Physical Exam Vitals reviewed. Constitutional: Appearance: Normal appearance. He is obese. HENT: Head: Normocephalic. Mouth/Throat: Mouth: Mucous membranes are moist. Cardiovascular: Rate and Rhythm: Normal rate. Rhythm irregular. Pulmonary: Effort: Pulmonary effort is normal. Abdominal: Palpations: Abdomen is soft. Skin: General: Skin is warm. Capillary Refill: Capillary refill takes less than 2 seconds. Neurological: General: No focal deficit present. Mental Status: He is alert and oriented to person, place, and time. Mental status is at baseline. Psychiatric: Mood and Affect: Mood normal. Last Recorded Vitals Blood pressure (!) 124/92, pulse 77, temperature 36.8 ???C (98.2 ???F), temperature source Oral, resp. rate 11, height 1.727 m (5' 8 ), weight 80.6 kg (177 lb 11.1 oz), SpO2 96 %. Relevant Results Assessment/Plan Principal Problem: New onset of congestive heart failure (CMS/HCC) Active Problems: Asthma History of malignant neoplasm of prostate Hypomagnesemia Hypertension Syncope and collapse *New systolic HF with EF of 25% -Risks and benefits of the procedure was discussed in details with the patient and patient agreed to proceed forward with the test. Normal [facility] MAGNESIUMon 07-03-2022 Magnesium [Mass/Vol] 1.5 mg/dL Low 1.9-2.7 [facility] Comment on above: Performed By: #### L [id number] #### [facility] ([facility]) [address] [place] [address] NURSNOTEon 07-03-2022 NURSNOTE Pt left for cath lab at this time Normal [facility] PROTIME-INRon 07-03-2022 INR IN PPP BY COAGULATION ASSAY 1.23 High 0.90-1.10 [facility] Comment on above: Result Comment: [facility] P RECOMMENDED INR FOR WARFARIN THERAPY CONDITION INR PROPHYLAXIS OF VENOUS THROMBOSIS 2-3 (HIGH-RISK SURGERY) TREATMENT OF VENOUS THROMBOSIS 2-3 TREATMENT OF PULMONARY EMBOLISM 2-3 PREVENTION OF SYSTEMIC EMBOLISM: 2-3 ACUTE MYOCARDIAL INFARCTION TISSUE HEART VALVES VALVULAR HEART DISEASE ATRIAL FIBRILLATION RECURRENT SYSTEMIC EMBOLISM MECHANICAL HEART VALVE 2.5-3.5 FROM: ORAL ANTICOAGULANTS. MECHANISM OF ACTION, CLINICAL EFFECTIVENESS, AND OPTIMAL THERAPEUTIC RANGE. CHEST 1995;108:[id number]. Performed By: #### L [id number] #### [facility] ([facility]) [address] [place] [address] PROTHROMBIN TIME (PT) IN PPP BY COAGULATION ASSAY 15.4 Seconds High 12.3-14.8 [facility] Comment on above: Performed By: #### L [id number] #### [facility] ([facility]) [address] [place] [address] TROPONIN Ion 07-03-2022 Troponin I.cardiac [Mass/Vol] 0.04 ng/mL Normal 0.00-0.04 [facility] Comment on above: Performed By: #### L [id number] ####[facility] ([facility])[address] [place] [address] CARDIAC BONNIE 3-6on 2 CK [Catalytic activity/Vol] 231 U/L Normal 39-308 [facility] Comment on above: Performed By: #### C MREP #### [facility] [address] [address] [address] Skylar Chadwick CK.MB [Mass/Vol] 1.39 ng/mL Normal <=3.60 [facility] Comment on above: Performed By: #### C MREP #### [facility] [address] [address] [address] Skylar Chadwick HSTROP 41.4 pg/mL Normal 4.0-76.1 [facility] Comment on above: Result Comment: CUT- OFF POINTS HAVE BEEN ESTABLISHED BASED ON THE FOURTH UNIVERSAL DEFINITIONS OF MYOCARDIAL INFARCTION. THE UPPER REFERENCE LIMIT (URL) OF TROPONIN, DEFINED THE 99TH PERCENTILE OF cTnI DISTRIBUTION IN A REFERENCE POPULATION, HAS BEEN CONFIRMED THE DECISION THRESHOLD FOR SD DIAGNOSIS. Performed By: #### C MREP #### [facility] [address] [address] [address] Skylar Chadwick CK [Catalytic activity/Vol] 214 U/L Normal 39-308 [facility] Comment on above: Performed By: #### C MREP #### [facility] [address] [place] [address] Dr. Skylar Chadwick CK.MB [Mass/Vol] 1.37 ng/mL Normal <=3.60 [facility] Comment on above: Performed By: #### C MREP #### [facility] [address] [address] [address] Skylar Chadwick HSTROP 37.0 pg/mL Normal 4.0-76.1 [facility] Comment on above: Result Comment: CUT- OFF POINTS HAVE BEEN ESTABLISHED BASED ON THE FOURTH UNIVERSAL DEFINITIONS OF MYOCARDIAL INFARCTION. THE UPPER REFERENCE LIMIT (URL) OF TROPONIN, DEFINED THE 99TH PERCENTILE OF cTnI DISTRIBUTION IN A REFERENCE POPULATION, HAS BEEN CONFIRMED THE DECISION THRESHOLD FOR SD DIAGNOSIS. Performed By: #### C MREP #### [facility] [address] [place] [address] Dr. Skylar Chadwick CBC AUTO DIFFon 07-02-2022 BASO # 0.1 103/ul Normal 0.0-0.1 [facility] Comment on above: Performed By: #### C MADM, BMP #### [facility] [address] [place] [address] Dr. Skylar Chadwick Basophils/100 WBC (Bld) 1.3 % Normal 0.2-2.0 [facility] Comment on above: Performed By: #### C MADM, BMP #### [facility] [address] [place] [address] Dr. Skylar Chadwick EO # 0.6 103/ul Normal 0.0-0.7 [facility] Comment on above: Performed By: #### C MADM, BMP #### [facility] [address] [place] [address] Dr. Skylar Chadwick Eosinophils/100 WBC (Bld) 7.1 % Critically high 0.9-7.0 [facility] Comment on above: Performed By: #### C MADM, BMP #### [facility] [address] [place] [address] Dr. Skylar Chadwick Erythrocyte distribution width (RBC) [Ratio] 13.0 % Normal 11.0-15.0 [facility] Comment on above: Performed By: #### C MADM, BMP #### [facility] [address] [place] [address] Dr. Skylar Chadwick Hematocrit (Bld) [Volume fraction] 37.2 % Critically low 42.0-54.0 [facility] Comment on above: Performed By: #### C MADM, BMP #### [facility] [address] [place] [address] Dr. Skylar Chadwick Hemoglobin (Bld) [Mass/Vol] 13.2 g/dL Critically low 14.0-18.0 [facility] Comment on above: Performed By: #### C MADM, BMP #### [facility] [address] [place] [address] Dr. Skylar Chadwick IG # 0.02 10e3/ul Normal 0.00-0.03 [facility] Comment on above: Performed By: #### C MADM, BMP #### [facility] [address] [place] [address] Dr. Skylar Chadwick IG % 0.3 % Normal 0.0-0.5 [facility] Comment on above: Performed By: #### C MADM, BMP #### [facility] [address] [place] [address] Dr. Skylar Chadwick LYMPH # 2.2 103/ul Normal 1.2-3.8 [facility] Comment on above: Performed By: #### C MADM, BMP #### [facility] [address] [place] [address] Dr. Skylar Chadwick Lymphocytes/100 WBC (Bld) 27.4 % Normal 20.5-60.0 [facility] Comment on above: Performed By: #### C MADM, BMP #### [facility] [address] [place] [address] Dr. Skylar Chadwick MANUAL DIFF REQ NO Normal [facility] Comment on above: Performed By: #### C MADM, BMP #### [facility] [address] [place] [address] Dr. Skylar Chadwick MCH (RBC) [Entitic mass] 32.4 pg Normal 25.9-34.0 [facility] Comment on above: Performed By: #### C MADM, BMP #### [facility] [address] [place] [address] Dr. Skylar Chadwick MCHC (RBC) [Mass/Vol] 35.5 g/dL Critically high 29.9-35.2 [facility] Comment on above: Performed By: #### C MADM, BMP #### [facility] [address] [place] [address] Dr. Skylar Chadwick MCV (RBC) [Entitic vol] 91.2 fL Normal 80.0-94.0 [facility] Comment on above: Performed By: #### C MADM, BMP #### [facility] [address] [place] [address] Dr. Skylar Chadwick MONO # 1.1 103/ul Critically high 0.3-0.8 [facility] Comment on above: Performed By: #### C AILYN, BMP #### [facility] [address] [place] [address] Dr. Skylar Chadwick Monocytes/100 WBC (Bld) 14.1 % Critically high 1.7-12.0 [facility] Comment on above: Performed By: #### C AILYN, BMP #### [facility] [address] [place] [address] Dr. Skylar Chadwick NEUT # 4.0 103/ul Normal 1.4-6.5 [facility] Comment on above: Performed By: #### C AILYN, BMP #### [facility] [address] [place] [address] Dr. Skylar Chadwick Neutrophils/100 WBC (Bld) 49.8 % Normal 43.0-75.0 [facility] Comment on above: Performed By: #### C AILYN, BMP #### [facility] [address] [place] [address] Dr. Skylar Chadwick Platelet mean volume (Bld) [Entitic vol] 10.5 fL Normal 9.5-13.5 [facility] Comment on above: Performed By: #### C AILYN, BMP #### [facility] [address] [place] [address] Dr. Skylar Chadwick PLT 159 103/ul Normal 150-450 [facility] Comment on above: Performed By: #### C AILYN, BMP #### [facility] [address] [place] [address] Dr. Skylar Chadwick RBC 4.08 106/ul Critically low 4.70-6.10 [facility] Comment on above: Performed By: #### C AILYN, BMP #### [facility] [address] [place] [address] Dr. Skylar Chadwick WBC 8.0 103/ul Normal 4.0-11.0 [facility] Comment on above: Performed By: #### C AILYN, BMP #### [facility] [address] [place] [address] Dr. Skylar Chadwick Covid-19 PCR (CVDTB)on 06-18 SARS-CoV-2 (COVID-19) RNA DANDY+probe Ql (Unsp spec) Not detected Normal NOT DETECTED [facility] Comment on above: Result Comment: When diagnostic testing is negative, the possibility of a false negative should be considered in the context of a patient's recent exposures and the presence of clinical signs and symptoms consistent with SARS-CoV-2. This test is not yet approved or cleared by the [place] FDA. When there are no FDA-approved or cleared tests available, and other criteria are met, FDA can make tests available under an emergency access mechanism called an Emergency Use Authorization (EUA). The EUA for this test is supported by the Aviation Ordnance Officer of Health and Human Service's declaration that circumstances exist to justify the emergency use of in vitro diagnostics for the detection and/or diagnosis of the virus that causes COVID-19. This EUA will remain in effect for the duration of the COVID-19 declaration justifying emergency of IVDs, unless it is terminated or revoked by the FDA (after which the test may no longer be used). Performed By: #### [facility] #### [facility] [address] [address] [address] Skylar Chadwick ECHOCARDIO M/2D COMPLETEon 1 09-02-2021 ECHOCARDIO M/2D COMPLETE Patient: KRISTY DOHERTY Exam Date: 07/02/2022 : 1955 Gender:M Ordering : EDDIE SISTER Admission #: [id number] Family : DR RUDY KING . Order #: [id number] CLICK HERE TO VIEW EXAM ECHOCARDIOGRAM REPORT PROCEDURE: CARDIO PULMONARY ECHOCARDIO M/2D COMP INDICATIONS: Syncope COMPARISON: None. DESCRIPTION: COMPLETE ECHOCARDIOGRAM Real-time transthoracic echocardiography with 2D, M-mode, spectral and color flow Doppler performed. QUALITY: Technical quality was good. LEFT VENTRICLE: Mild dilatation. Mild concentric left ventricular hypertrophy. LV EF: Severely reduced global left ventricular systolic function (25-30%). Calculated left ventricular ejection fraction is 28%. Global hypokinesis. DIASTOLIC: Grade 1, mild diastolic dysfunction. ATRIAL SEPTUM: Inadequately seen. LEFT ATRIUM: Mild dilatation. RIGHT ATRIUM: Mild dilatation. RIGHT VENTRICLE: Normal chamber size. Normal right ventricular systolic function. TRICUSPID VALVE: Normal mobility and thickness. No stenosis with trivial regurgitation. No evidence of pulmonary hypertension. RVSP 29mmHg MITRAL VALVE: Normal mobility and thickness. No mitral valve prolapse. No evidence of mitral valve stenosis. There is no mitral annular calcification. Moderate mitral regurgitation. AORTIC VALVE: Normal trileaflet appearance. Thickened aortic valve. Normal leaflet mobility. No evidence of aortic valve stenosis. Mild aortic regurgitation. AORTIC ROOT: Normal diameter and appearance. PULMONIC VALVE: Normal thickness and mobility. No stenosis. Trivial regurgitation. PERICARDIUM: No evidence of pericardial effusion. IVC: Collapses with inspirations. Normal size CONCLUSION: Global left ventricular systolic function is severely reduced; visually estimated ejection fraction is 25 to 30%. Global hypokinesis. Mild left ventricular hypertrophy. Mild diastolic dysfunction. Biatrial enlargement. The right ventricle is normal in size and systolic function. Moderate mitral regurgitation. Mild aortic regurgitation. Adult Echocardiography Procedure Report Left Ventricle Left Atrium Mitral Valve Right Ventricle Aorta Aortic Valve Tricuspid Valve Pulmonic Valve Right Atrium Dictated by: Krystina Mills M.D. on 07/02/2022 at 14:04 Approved by: Krystina Mills M.D. on 07/02/2022 at 14:11 Normal [facility] PROF CHEM 8 (BAS METB)on Anion gap [Moles/Vol] 8.4 mmol/L Normal [facility] Comment on above: Performed By: #### B MP #### [facility] [address] [address] [address] Skylar Chadwick Calcium [Mass/Vol] 8.3 mg/dL Critically low 8.5-10.1 [facility] Comment on above: Performed By: #### B MP #### [facility] [address] [address] [address] Skylar Chadwick Chloride [Moles/Vol] 97 mmol/L Critically low 98-107 [facility] Comment on above: Performed By: #### B MP #### [facility] [address] [address] [address] Skylar Chadwick CO2 [Moles/Vol] 32.9 mmol/L Critically high 21.0-32.0 [facility] Comment on above: Performed By: #### B MP #### [facility] [address] [address] [address] Skylar Chadwick Creatinine [Mass/Vol] 1.08 mg/dL Normal 0.70-1.30 [facility] Comment on above: Performed By: #### B MP #### [facility] [address] [address] [address] Skylar Chadwick EGFR-AF PORTUGUESE >60 Normal >=60 [facility] Comment on above: Performed By: #### B MP #### [facility] [address] [address] [address] Skylar Chadwick EGFR-NON AF PORTUGUESE >60 Normal >=60 [facility] Comment on above: Performed By: #### B MP #### [facility] [address] [address] [address] Skylar Chadwick Glucose [Mass/Vol] 114 mg/dL Critically high 74-106 T [facility] Comment on above: Performed By: #### B MP #### [facility] [address] [address] [address] Skylar Chadwick Potassium [Moles/Vol] 3.3 mmol/L Critically low 3.5-5.1 [facility] Comment on above: Performed By: #### B MP #### [facility] [address] [address] [address] Skylar Chadwick Sodium [Moles/Vol] 135 mmol/L Critically low 136-145 Th [facility] Comment on above: Performed By: #### B MP #### [facility] [address] [address] [address] Skylar Chadwick Urea nitrogen [Mass/Vol] 13.0 mg/dL Normal 7.0-18.0 [facility] Comment on above: Performed By: #### B MP #### [facility] [address] [address] [address] Skylar Chadwick Urea nitrogen/Creatinine [Mass ratio] 12.0 mg/mg Normal [facility] Comment on above: Performed By: #### B MP #### [facility] [address] [address] [address] Skylar Chadwick Anion gap [Moles/Vol] 8.6 mmol/L Normal [facility] Comment on above: Performed By: #### C AILYN, BMP #### [facility] [address] [place] [address] Dr. Skylar Chadwick Calcium [Mass/Vol] 8.6 mg/dL Normal 8.5-10.1 [facility] Comment on above: Performed By: #### C CARLOS ENRIQUEM, BMP #### [facility] [address] [place] [address] Dr. Skylar Chadwick Chloride [Moles/Vol] 96 mmol/L Critically low 98-107 [facility] Comment on above: Performed By: #### C AILYN, BMP #### [facility] [address] [place] [address] Dr. Skylar Chadwick CO2 [Moles/Vol] 34.2 mmol/L Critically high 21.0-32.0 [facility] Comment on above: Performed By: #### C AILYN, BMP #### [facility] [address] [place] [address] Dr. Skylar Chadwick Creatinine [Mass/Vol] 1.05 mg/dL Normal 0.70-1.30 [facility] Comment on above: Performed By: #### C AILYN, BMP #### [facility] [address] [place] [address] Dr. Skylar Chadwick EGFR-AF PORTUGUESE >60 Normal >=60 [facility] Comment on above: Performed By: #### C AILYN, BMP #### [facility] [address] [place] [address] Dr. Skylar Chadwick EGFR-NON AF PORTUGUESE >60 Normal >=60 [facility] Comment on above: Performed By: #### C CARLOS ENRIQUEM, BMP #### [facility] [address] [place] [address] Dr. Skylar Chadwick Glucose [Mass/Vol] 113 mg/dL Critically high 74-106 [facility] Comment on above: Performed By: #### C AILYN, BMP #### [facility] [address] [address] [address] Skylar Chadwick Potassium [Moles/Vol] 2.8 mmol/L Critically low 3.5-5.1 [facility] Comment on above: Performed By: #### C AILYN, BMP #### [facility] [address] [address] [address] Skylar Chadwick Sodium [Moles/Vol] 136 mmol/L Normal 136-145 [facility] Comment on above: Performed By: #### C AILYN, BMP #### [facility] [address] [place] [address] Dr. Skylar Chadwick Urea nitrogen [Mass/Vol] 10.0 mg/dL Normal 7.0-18.0 [facility] Comment on above: Performed By: #### C AILYN, BMP #### [facility] [address] [place] [address] Dr. Skylar Chadwick Urea nitrogen/Creatinine [Mass ratio] 9.5 mg/mg Normal [facility] Comment on above: Performed By: #### C AILYN, BMP #### [facility] [address] [place] [address] Dr. Skylar Chadwick US CAROTID ART BILon 12-15-2 022 US CAROTID ART ELEN EXAMINATION: US CANTU TID ART ELEN HISTORY: Syncope COMPARISON: No relevant comparison available. TECHNIQUE: Duplex Doppler ultrasound analysis of carotid and vertebral arteries. . Bilateral carotid arterial duplex examination was performed using B-mode, color flow and spectral analysis. Carotid stenosis is reported according to validated velocity parameters, similar to NASCET criteria. FINDINGS: RIGHT CAROTID ARTERY Mild atherosclerotic plaque Subclavian: PSV: 99.7 cm/s cm/s EDV: 0.0 cm/s cm/s CCA: Prox: PSV: 70.9 cm/s cm/s EDV: 17.6 cm/s cm/s Mid: PSV: 66.1 cm/s cm/s EDV: 19.2 cm/s cm/s Distal: PSV: 62.8 cm/s cm/s EDV: 19.2 cm/s cm/s BULB: PSV: 45.1 cm/s cm/s EDV: 11.1 cm/s cm/s ICA: Prox: PSV: 64.4 cm/s cm/s EDV: 24.1 cm/s cm/s Mid: PSV: 93.5 cm/s cm/s EDV: 32.1 cm/s cm/s Distal: PSV: 100.0 cm/s cm/s EDV: 38.6 cm/s cm/s ECA: PSV: 70.9 cm/s cm/s EDV: 14.4 cm/s cm/s VERTEBRAL: PSV: 48.3 cm/s cm/s EDV: 7.6 cm/s cm/s ICA/CCA ratio: PSV: 1.6 EDV: 2.0 LEFT CAROTID ARTERY Mild atherosclerotic plaque Subclavian: PSV: 113.6 cm/s cm/s EDV: 16.0 cm/s CCA: Prox: PSV: 64.8 cm/s cm/s EDV: 20.7 cm/s Mid: PSV: 64.8 cm/s cm/s EDV: 23.0 cm/s Distal: PSV: 64.4 cm/s cm/s EDV: 17.6 cm/s BULB: PSV: 56.4 cm/s cm/s EDV: 16.0 cm/s ICA: Prox: PSV: 96.8 cm/s cm/s EDV: 17.6 cm/s Mid: PSV: 129.9 cm/s cm/s EDV: 34.6 cm/s Distal: PSV: 79.0 cm/s cm/s EDV: 27.3 cm/s ECA: PSV: 131.5 cm/s cm/s EDV: 17.7 cm/s VERTEBRAL: PSV: 64.1 cm/s cm/s EDV: 24.6 cm/s ICA/CCA ratio: PSV: 2.0 EDV: 2.0 IMPRESSION: 0-49% flow stenosis bilateral internal carotid arteries Spectral Doppler US Thresholds (Reference: David EG, et al. Radiology 2000; 214:247-252) Stenosis (%) PSV (cm/sec) VICA/VCCA 0-49 <150 <2.5 50-69 150-225 2.5-4.0 >70 >225 >4.0 Electronically authenticated by: ASIF JOHN Date: 2022-07-02 11:23 Normal [facility] CARDIAC BONNIE ADMITon 022 CK [Catalytic activity/Vol] 201 U/L Normal 39-308 [facility] Comment on above: Performed By: #### C AILYN, BMP #### [facility] [address] [address] [address] Skylar Chadwick CK.MB [Mass/Vol] 1.31 ng/mL Normal <=3.60 [facility] Comment on above: Performed By: #### C AILYN, BMP #### [facility] [address] [address] [address] Skylar Chadwick HSTROP 34.8 pg/mL Normal 4.0-76.1 [facility] Comment on above: Result Comment: CUT- OFF POINTS HAVE BEEN ESTABLISHED BASED ON THE FOURTH UNIVERSAL DEFINITIONS OF MYOCARDIAL INFARCTION. THE UPPER REFERENCE LIMIT (URL) OF TROPONIN, DEFINED THE 99TH PERCENTILE OF cTnI DISTRIBUTION IN A REFERENCE POPULATION, HAS BEEN CONFIRMED THE DECISION THRESHOLD FOR SD DIAGNOSIS. Performed By: #### C AILYN, BMP #### [facility] [address] [address] [address] Skylar Chadwick NHAN 336 ng/mL Critically high 16-96 [facility] Comment on above: Performed By: #### C AILYN, BMP #### [facility] [address] [place] [address] Dr. Skylar Chadwick CBC AUTO DIFFon 07-01-2022 BASO # 0.1 103/ul Normal 0.0-0.1 [facility] Comment on above: Performed By: #### C BC #### [facility] [address] [place] [address] Dr. Skylar Chadwick Basophils/100 WBC (Bld) 1.2 % Normal 0.2-2.0 [facility] Comment on above: Performed By: #### C BC #### [facility] [address] [place] [address] Dr. Skylar Chadwick EO # 0.5 103/ul Normal 0.0-0.7 [facility] Comment on above: Performed By: #### C BC #### [facility] [address] [place] [address] Dr. Skylar Chadwick Eosinophils/100 WBC (Bld) 6.3 % Normal 0.9-7.0 [facility] Comment on above: Performed By: #### C BC #### [facility] [address] [place] [address] Dr. Skylar Chadwick Erythrocyte distribution width (RBC) [Ratio] 12.9 % Normal 11.0-15.0 [facility] Comment on above: Performed By: #### C BC #### [facility] [address] [place] [address] Dr. Skylar Chadwick Hematocrit (Bld) [Volume fraction] 38.0 % Critically low 42.0-54.0 [facility] Comment on above: Performed By: #### C BC #### [facility] [address] [place] [address] Dr. Skylar Chadwick Hemoglobin (Bld) [Mass/Vol] 13.5 g/dL Critically low 14.0-18.0 [facility] Comment on above: Performed By: #### C BC #### [facility] [address] [place] [address] Dr. Skylar Chadwick IG # 0.02 10e3/ul Normal 0.00-0.03 [facility] Comment on above: Performed By: #### C BC #### [facility] [address] [place] [address] Dr. Skylar Chadwick IG % 0.2 % Normal 0.0-0.5 [facility] Comment on above: Performed By: #### C BC #### [facility] [address] [place] [address] Dr. Skylar Chadwick LYMPH # 2.6 103/ul Normal 1.2-3.8 [facility] Comment on above: Performed By: #### C BC #### [facility] [address] [place] [address] Dr. Skylar Chadwick Lymphocytes/100 WBC (Bld) 30.5 % Normal 20.5-60.0 [facility] Comment on above: Performed By: #### C BC #### [facility] [address] [place] [address] Dr. Skylar Chadwick MANUAL DIFF REQ NO Normal [facility] Comment on above: Performed By: #### C BC #### [facility] [address] [place] [address] Dr. Skylar Chadwick MCH (RBC) [Entitic mass] 32.2 pg Normal 25.9-34.0 [facility] Comment on above: Performed By: #### C BC #### [facility] [address] [place] [address] Dr. Skylar Chadwick MCHC (RBC) [Mass/Vol] 35.5 g/dL Critically high 29.9-35.2 [facility] Comment on above: Performed By: #### C BC #### [facility] [address] [place] [address] Dr. Skylar Chadwick MCV (RBC) [Entitic vol] 90.7 fL Normal 80.0-94.0 [facility] Comment on above: Performed By: #### C BC #### [facility] [address] [place] [address] Dr. Skylar Chadwick MONO # 1.2 103/ul Critically high 0.3-0.8 [facility] Comment on above: Performed By: #### C BC #### [facility] [address] [place] [address] Dr. Skylar Chadwick Monocytes/100 WBC (Bld) 14.3 % Critically high 1.7-12.0 [facility] Comment on above: Performed By: #### C BC #### [facility] [address] [place] [address] Dr. Skylar Chadwick NEUT # 4.0 103/ul Normal 1.4-6.5 [facility] Comment on above: Performed By: #### C BC #### [facility] [address] [place] [address] Dr. Skylar Chadwick Neutrophils/100 WBC (Bld) 47.5 % Normal 43.0-75.0 [facility] Comment on above: Performed By: #### C BC #### [facility] [address] [place] [address] Dr. Skylar Chadwick Platelet mean volume (Bld) [Entitic vol] 10.4 fL Normal 9.5-13.5 [facility] Comment on above: Performed By: #### C BC #### [facility] [address] [address] [address] Skylar Chadwick PLT 175 103/ul Normal 150-450 [facility] Comment on above: Performed By: #### C BC #### [facility] [address] [address] [address] Skylar Chadwick RBC 4.19 106/ul Critically low 4.70-6.10 [facility] Comment on above: Performed By: #### C BC #### [facility] [address] [address] [address] Skylar Chadwick WBC 8.4 103/ul Normal 4.0-11.0 [facility] Comment on above: Performed By: #### C BC #### [facility] [address] [place] [address] CSPINE WO CONon 2 CT CSPINE WO CON EXAMINATION: CT CSPI NE WO CON HISTORY: HEADACHE ; posterior head injury after falling backwards, loss of consciousness, vomited COMPARISON: No relevant comparison available. TECHNIQUE: Axial, Coronal, and Sagittal images were created without IV contrast. Dose reduction techniques were achieved by using automated exposure control and/or adjustment of mA and/or kV according to patient size and/or use of iterative reconstruction technique. FINDINGS: VERTEBRAL BODIES: No fracture, spondylolisthesis, bone lesion. FACET JOINTS: Multilevel moderate degenerative changes. No disruption or abnormal widening. CERVICAL DISCS: Large posterior disc-osteophyte complex at C5-C6, C6-C7 causing marked central canal narrowing at both levels and marked left foramen narrowing at C6-C7. Moderate disc space narrowing C4-C5, C5-C6. Marked narrowing C6-C7. CENTRAL CANAL: No evidence of hemorrhage. PARASPINAL AREA: No visible mass. IMPRESSION: 1. No appreciable acute abnormality. 2. Multilevel marked degenerative changes. Electronically authenticated by: BRIAN BRADSHAW Date: 2022-07-01 21:26 Normal [facility] CT HEAD WO CONon 07-01-2022 CT HEAD WO CON EXAMINATION: CT HEAD WO CON HISTORY: HEADACHE . This is a 66-year-old who fell with a head injury COMPARISON: None. TECHNIQUE: CT examination of the head without IV contrast. Sagittal and coronal reconstructions were obtained. Dose reduction techniques were achieved by using automated exposure control and/or adjustment of mA and/or kV according to patient size and/or use of iterative reconstruction technique. FINDINGS: The ventricles are not enlarged, the lateral ventricles are symmetric and the third ventricles in the midline. The sylvian fissures and cortical sulci are unremarkable. There is no evidence of an intracranial hemorrhage, mass lesion or apparent acute infarct. The cerebellum and visualized brainstem are intact. The paranasal sinuses are well-developed as visualized, with mild mucosal thickening seen diffusely throughout the sphenoid, ethmoid and frontal sinuses. The remainder of the sinuses are not in the [id number]. The middle ears are aerated the mastoid sinuses are clear. There is no apparent acute skull fracture. IMPRESSION: There is no evidence of an intracranial hemorrhage, mass lesion or apparent acute infarct. There is evidence of sinusitis which appears primarily chronic in the visualized paranasal sinuses. There is no apparent skull fracture. Comparison with a previous study would be helpful in determining the chronicity is findings. Electronically authenticated by: ADIEL KERN Date: 2022-07-01 20:44 Normal [facility] D-DIMERon 07-01-2022 D-DIMER 0.35 mg/L FEU Normal <=0.59 [facility] Comment on above: Performed By: #### C CARLOS ENRIQUEDAMIEN #### [facility] [address] [place] [address] Dr. Skylar Chadwick D-DIMER COMMENTS SEE BELOW Normal [facility] Comment on above: Result Comment: Incr eases in D-Dimer concentration observed with thromboembolic events can be variable due to localization, size, and age of the thrombus. Therefore, a thromboembolic event cannot be diagnosed with certainty on the basis of the reference range. D-Dimers may also be elevated for a variety of disorders including: advanced age, , coronary disease, cancer, liver disease, infection, inflammation, hematoma, DIC, trauma, post-surgery, diabetes, thrombolytic or anticoagulant therapy, stress, and generalized hospitalization. Performed By: #### C AILYN, BMP #### [facility] [address] [address] [address] Skylar Chadwick PROF CHEM 8 (BAS METB)on Anion gap [Moles/Vol] 13.5 mmol/L Normal [facility] Comment on above: Performed By: #### C MADM, BMP #### [facility] [address] [place] [address] Dr. Skylar Chadwick Calcium [Mass/Vol] 8.8 mg/dL Normal 8.5-10.1 [facility] Comment on above: Performed By: #### C MADM, BMP #### [facility] [address] [place] [address] Dr. Skylar Chadwick Chloride [Moles/Vol] 94 mmol/L Critically low 98-107 [facility] Comment on above: Performed By: #### C MADM, BMP #### [facility] [address] [place] [address] Dr. Skylar Chadwick CO2 [Moles/Vol] 29.0 mmol/L Normal 21.0-32.0 [facility] Comment on above: Performed By: #### C MADM, BMP #### [facility] [address] [place] [address] Dr. Skylar Chadwick Creatinine [Mass/Vol] 1.03 mg/dL Normal 0.70-1.30 [facility] Comment on above: Performed By: #### C MADM, BMP #### [facility] [address] [place] [address] Dr. Skylar Chadwick EGFR-AF PORTUGUESE >60 Normal >=60 [facility] Comment on above: Performed By: #### C MADM, BMP #### [facility] [address] [place] [address] Dr. Skylar Chadwick EGFR-NON AF PORTUGUESE >60 Normal >=60 [facility] Comment on above: Performed By: #### C MADM, BMP #### [facility] [address] [place] [address] Dr. Skylar Chadwick Glucose [Mass/Vol] 111 mg/dL Critically high 74-106 [facility] Comment on above: Performed By: #### C MADM, BMP #### [facility] [address] [address] [address] Skylar Chadwick Potassium [Moles/Vol] 2.5 mmol/L Critically low 3.5-5.1 [facility] Comment on above: Performed By: #### C MADM, BMP #### [facility] [address] [address] [address] Skylar Chadwick Sodium [Moles/Vol] 134 mmol/L Critically low 136-145 [facility] Comment on above: Performed By: #### C MADM, BMP #### [facility] [address] [address] [address] Skylar Chadwick Urea nitrogen [Mass/Vol] 12.0 mg/dL Normal 7.0-18.0 [facility] Comment on above: Performed By: #### C CARLOS ENRIQUEM, BMP #### [facility] [address] [address] [address] Skylar Chadwick Urea nitrogen/Creatinine [Mass ratio] 11.7 mg/mg Normal [facility] Comment on above: Performed By: #### C CARLOS ENRIQUEM, BMP #### [facility] [address] [address] [address] Skylar Chadwick XR CHEST 1 Von 07-01-2022 XR CHEST 1 V CXR HISTORY: Shortness of breath COMPARISON: None. TECHNIQUE: 1 view chest submitted for review. FINDINGS: The lungs are adequately expanded without evidence of acute infiltrate or effusion. The cardiac silhouette measures within normal. Pulmonary vascularity is unremarkable. Osseous structures are within normal limits for age. IMPRESSION: No plain film evidence for acute cardiopulmonary disease. Electronically authenticated by: SOBEIDA MONCADA Date: 2022-07-01 20:44 Normal [facility] Outside Colonoscopyon 2021 Outside Colonoscopy [id number] D:127 Normal [facility] RAD - MISCon 01-29-2022 RAD - MISC [id number] D:127 Normal [facility] XR COLON AIR CONTR.on 2021 XR COLON AIR CONTR. EXAMINATION: XR COLO N AIR CONTR. HISTORY: Colonoscopy abnormal COMPARISON: No relevant comparison available. FLUOROSCOPY TIME: Fluoro time measures 3 minutes 40 seconds and 22 images were obtained. TECHNIQUE: An air contrast barium enema examination was performed in the usual manner. No hydrogen operator abdominal radiograph was performed. Standard level fluoroscopic mode of operation utilized. FINDINGS: COLON: No focal obstruction, mass or stricture. Mild diverticulosis distal descending and proximal sigmoid colon. OTHER: Negative. IMPRESSION: Mild diverticulosis, otherwise normal exam Electronically authenticated by: ASIF JOHN Date: 2022-01-28 14:34 Normal [facility] Pre-Certification Formon Pre-Certification Form [id number] CD:127 Normal [facility] Consent for Procedure/Surger yon 01-08-2022 Consent for Procedure/Surgery [id number] D:127 Normal [facility] Ambulatory Visit Summaryon 0 01-07-2022 Ambulatory Visit Summary KRISTY DOHERTY :1955 Visit Date:01/07/2022 Ambulatory Visit Instructions Your Diagnosis Screening for colorectal cancer Encounter for screening for malignant neoplasm of rectum Your Care Team Attending Physician - ANGELICA KLEIN, Ravi Bernstein Primary Care Physician - FERNANDO KLEIN, RUDY This Is Your Medications List Contact prescribing physician if questions or concerns albuterol (albuterol HFA 90 mcg/inh MDI) fluticasone nasal (Flonase 0.05 mg/inh nasal spray) fluticasone-salmeterol (Advair 500 mcg-50 mcg Powder) hydrochlorothiazide (hydrochlorothiazide 25 mg oral tablet) Procedures Performed Colonoscopy (01/25/2008), Biopsy of prostate, History of nasal sinus surgery, Prostatectomy. Discharge Vitals Heart Rate (Peripheral) 80 Respiratory Rate 16 Blood Pressure 142/96 Height 172.7 cm Height 172.72 cm Weight 90.2 kg Weight 90.2 kg BMI 30.24 Medications What How Much When Instructions Unchanged albuterol (albuterol HFA 90 mcg/ inh MDI) 2 Puffs Inhalation Every 4 hours as needed for Shortness of breath or wheezing Contact prescribing physician if questions or concerns Unchanged fluticasone nasal (Flonase 0.05 mg/ inh nasal spray) 2 Sprays Nasal Inhalation Every day Contact prescribing physician if questions or concerns Unchanged fluticasone-salmeterol (Advair 500 mcg-50 mcg Powder) 1 Inhalation Inhalation 2 times a day Contact prescribing physician if questions or concerns Unchanged hydrochlorothiazide (hydrochlorothiazide 25 mg oral tablet) 1 Tablets By Mouth Every day Contact prescribing physician if questions or concerns Allergies No Known Allergies No Known Medication Allergies Problems Ongoing - Any problem that you are currently receiving treatment for. Asthma BMI 30.0-30.9,adult Depression Dyslipidemia Fatty liver History of prostate cancer Obesity Prediabetes Renal cyst, right Screening for colorectal cancer Seasonal allergic rhinitis Vitamin D deficiency Normal [facility] Physician Referralon 022 Physician Referral [id number] D:127 [facility] Encounters Encounter Date Encounter Type Care Provider Facility Start: 07-22-2023 End: 07-22-2023 ambulatory RUDY KING Not Available Start: 06-29-2023 End: 06-29-2023 ambulatory BORIS [facility] Start: 05-11-2023 End: 05-11-2023 ambulatory BOBO RAYMOND [facility] Start: 02-19-2023 End: 02-19-2023 ambulatory CUBA BUENROSTRO [facility] Start: 12-03-2022 End: 12-03-2022 ambulatory Kristy Beatty Facility:[facility] Start: 11-30-2022 End: 11-30-2022 ambulatory BORIS GOMEZEMMA [facility] Start: 11-10-[address]UDY KING [facility] ity:[facility] Start: 11-02-2022 End: 11-03-2022 ambulatory MILDRED BENJAMIN [facility] Start: 11-02-2022 End: 11-03-2022 ambulatory ALEXIS CRAFT Facility:[facility] Start: 10-28-2022 End: 10-29-[address] BORIS KIM Facility:[facility] Start: 10-06-2022 End: 10-06-2022 ambulatory [facility] Start: 09-15-2022 End: 09-15-2022 ambulatory [facility] Start: 09-05-2022 End: 09-06-2022 ambulatory BOBO GABRIEL Facility:[facility] Start: 09-04-2022 End: 09-04-2022 ambulatory [facility] Start: 09-02-2022 End: 09-03-2022 ambulatory [facility] Start: 09-01-2022 End: 09-01-2022 ambulatory [facility] Start: 08-31-[address] BORIS KIM Fac ility:[facility] Start: 08-24-2022 End: 08-25-2022 ambulatory BORIS GOMEZEMMA [facility] Start: 08-18-2022 End: 08-19-[address] RUDY KING Facility:[facility] Start: 08-18-2022 End: 08-19-[address] RUDY KING Facility:[facility] Start: 08-03-2022 End: 08-04-[address] RUDY KING Facility:[facility] Start: 07-06-2022 End: 07-06-2022 ambulatory [facility] Start: 07-02-2022 End: 07-04-2022 [facility] Start: 07-02-2022 End: 07-02-[address] RUDY KING Facility:[facility] Start: 01-28-2022 End: 01-28-[address] RUDY KING Facility:[facility] Procedures Date Procedure Procedure Detail Performing Clinician Start: 11-02-2022 Follow-up visit Follow-up MILDRED CHANDLER Payers Date Payer Category Payer Self-pay 1959 Medicare [id number] 1959 Unknown [id number] 1955 Unknown [id number] 2.16.84 [id number] 1955 Unknown [id number] 2.16.84 [id number] 1955 Unknown [id number] 2.16.84 [id number] 1955 Unknown [id number] 2.16.84 [id number] 1955 Unknown [id number] 2.16.84 [id number] 1955 Unknown [id number] 2.16.84 [id number] 1955 Unknown [id number] 2.16.84 [id number] 1955 Unknown [id number] 2.16.84 [id number] 1955 Unknown [id number] 2.16.84 0.1.193881.3.579.2.593 1955 Unknown [id number] 2.16.84 0.1.298613.3.579.2.593 1955 Unknown [id number] 2.16.840 .[id number] Unknown [id number] 2.16.8 [id number] Clinical Notes 01-07-2022 to 06-29-2023 Note Date & Type Note Facility 06-29-2023 Note [facility] Subjective Kristy Doherty is a 67 y.o. year old male patient being seen for follow up echo done last month. He was started on Eliquis at last visit in Apr by Dr. Raymond. He denies chest pain, SOB, palpitations, lightheadedness/syncope, and bleeding on Eliquis. Doing very well. Patient Active Problem List Diagnosis New onset of congestive heart failure (CMS/HCC) Asthma History of malignant neoplasm of prostate Hypomagnesemia Hypertension Syncope and collapse Coronary artery disease involving [place] coronary artery of [place] heart without angina pectoris Chronic systolic heart failure (CMS/HCC) Depressive disorder Dyslipidemia Prediabetes Seasonal allergic rhinitis Steatosis of liver Vitamin D deficiency Nonischemic cardiomyopathy (CMS/HCC) ICD (implantable cardioverter-defibrillator) in place Benign essential hypertension Chronic pansinusitis Hyperlipidemia Malignant tumor of prostate (CMS/HCC) Nasal polyp Family History Problem Relation Name Age of Onset Other (pacemaker) Mother Social History Tobacco Use Smoking status: Former Types: Cigarettes Smokeless tobacco: Never Substance Use Topics Alcohol use: Yes Alcohol/week: 14.0 standard drinks of alcohol Types: 14 Cans of beer per week Comment: occasional Drug use: Never HPI Kristy is seen in follow up. He is a 67-year-old man with systolic heart failure. He has prior history of hypertension. In June 2022 he was admitted to [facility] with syncope and echocardiogram showed new onset systolic heart failure with ejection fraction of 25%. Carotid ultrasound showed no significant stenosis. CT head was negative for intracranial pathology. He ended up being transferred to [facility] and underwent cardiac catheterization that showed mild coronary artery disease. He was discharged on LifeVest, metoprolol succinate and Entresto. He reported that he was drinking alcoholic beverages on a daily basis. The first episode of syncope was on 07/01/2022 at work. Another episode of syncope happened at home on 07/30/2022. He was wearing a LifeVest that did not shows clear arrhythmia by rhythm strips. He then underwent a dual-chamber [employer] ICD placement on 09/04/2022. He was evaluated in cardiology clinic on 05/11/[address] Bobo Raymond and due to device discovered atrial fibrillation he was started on Eliquis for anticoagulation. today he reports that he has been doing well. He has had no recurrence of syncope. He denies chest pain. He has no shortness of breath on exertion. No leg edema. He does not have palpitations. He has been having bruising and easy bleeding tendency. Review of Systems Hematologic/Lymphatic: Bruises/bleeds easily. Musculoskeletal: Positive for arthritis, back pain and myalgias. All other systems reviewed and are negative. Objective Visit Vitals BP 120/72 (BP Location: Left arm, Patient Position: Sitting) Pulse 88 Ht 1.727 m (5' 8 ) Wt 86.2 kg (190 lb) SpO2 94% BMI 28.89 kg/m??? Smoking Status Former BSA 2.03 m??? Physical Exam Constitutional: Appearance: He is well-developed. He is not ill-appearing. HENT: Head: Normocephalic and atraumatic. Nose: Nose normal. Eyes: General: No scleral icterus. Pupils: Pupils are equal, round, and reactive to light. Neck: Thyroid: No thyromegaly. Vascular: No JVD. Cardiovascular: Rate and Rhythm: Normal rate and regular rhythm. Pulses: Radial pulses are 2+ on the right side and 2+ on the left side. Heart sounds: Normal heart sounds. No murmur heard. No friction rub. No gallop. Pulmonary: Effort: Pulmonary effort is normal. No respiratory distress. Breath sounds: Normal breath sounds. No wheezing or rales. Chest: Chest wall: No tenderness. Abdominal: General: Bowel sounds are normal. There is no distension. Palpations: Abdomen is soft. Tenderness: There is no abdominal tenderness. Musculoskeletal: General: No swelling. Cervical back: Neck supple. Skin: General: Skin is warm and dry. Neurological: General: No focal deficit present. Mental Status: He is alert and oriented to person, place, and time. Psychiatric: Mood and Affect: Mood normal. Behavior: Behavior is cooperative. Judgment: Judgment normal. Allergies No Known Allergies Medications Current Outpatient Medications: albuterol 90 mcg/actuation inhaler, Inhale 2 puffs every 4 (four) hours if needed for wheezing., Disp: , Rfl: allopurinol (Zyloprim) 300 mg tablet, Take 300 mg by mouth in the morning., Disp: , Rfl: apixaban (Eliquis) 5 mg tablet, Take 1 tablet (5 mg) by mouth in the morning and at bedtime., Disp: 180 tablet, Rfl: 3 atorvastatin (Lipitor) 40 mg tablet, Take 1 tablet (40 mg) by mouth at bedtime., Disp: 100 tablet, Rfl: 2 dapagliflozin (Farxiga) 10 mg, Take 1 tablet (10 mg) by mouth in the morning., Disp: 100 tablet, Rfl: 2 Dupixent Syring (more content not included)... [facility] 05-11-2023 Note .[facility] Cardiology Note [place] Reason for follow up: Afib on device check HPI: patient is s/p ICD placement for NICM HFrEF EF 25% 09/04/22. He has been doing well and device insertion site healed well. his device check revealed episodes of atrial fibrillation for approximately 4 hours. he was not aware of this. He has no complaints of chest pain, SOB, [place], palpitations ---- Prior HPI: Kristy Doherty is a 67 y.o. year old with past medical history of acute onset systolic heart failure, hypertension, syncope and collapse. He was recently admitted to [facility] for syncope and had a TTE which show new systolic heart failure with EF 25% with global hypokinesis. He had no prior symptoms to this event. EKG showed PVCs and PACs. He had bilateral carotid artery ultrasound which should 0-49% flow stenosis. CT head negative for intracranial concerns. He was transferred to [facility] for heart cath He does drink 2 alcoholic beverages per day, previous smoking of cigarettes. He was discharged with a LifeVest and his recent presyncope and falls concerns for possible VT/VF. He was discharged on metoprolol 50 mg daily and Entresto 24/26 mg twice daily. Patient states he has felt fine since recent discharge. He has not had any heart failure symptoms and was shocked by the results of the event. He has had his lifevest beep at him several times for possible placement issues and is having lifevest rep come by to adjust today. Review of Systems Constitutional: Negative for diaphoresis, fever and malaise/fatigue. Cardiovascular: Negative for chest pain, dyspnea on exertion, leg swelling, orthopnea and syncope. Respiratory: Negative for shortness of breath and sleep disturbances due to breathing. Neurological: Negative for light-headedness and weakness. All other systems reviewed and are negative. PMH: Past Medical History: Diagnosis Date Asthma 07/29/2012 CHF (congestive heart failure) ([facility]) Coronary artery disease History of malignant neoplasm of prostate 07/03/2022 Hypertension 07/03/2022 PSH: Past Surgical History: Procedure Laterality Date BAND HEMORRHOIDECTOMY CARDIAC CATHETERIZATION PROSTATECTOMY SINUS SURGERY SH: Social Determinants of Health Tobacco Use: Medium Risk (02/19/2023) Patient History Smoking Tobacco Use: Former Smokeless Tobacco Use: Never Passive Exposure: Not on file Alcohol Use: Not on file Financial Resource Strain: Not on file Food Insecurity: Not on file Transportation Needs: Not on file Physical Activity: Not on file Stress: Not on file Social Connections: Not on file Intimate Partner Violence: Not on file Depression: Not on file Housing Stability: Not on file Allergies: No Known Allergies Weight: 77.1kg Meds: Current Outpatient Medications on File Prior to Visit Medication Sig Dispense Refill albuterol 90 mcg/actuation inhaler Inhale 2 puffs every 4 (four) hours if needed for wheezing. allopurinol (Zyloprim) 300 mg tablet Take 300 mg by mouth in the morning. aspirin 81 mg chewable tablet Chew 1 tablet (81 mg) in the morning. 30 tablet 11 atorvastatin (Lipitor) 40 mg tablet Take 1 tablet (40 mg) by mouth at bedtime. 100 tablet 2 dapagliflozin (Farxiga) 10 mg Take 1 tablet (10 mg) by mouth in the morning. 100 tablet 2 Dupixent Syringe 300 mg/2 mL syringe injection fluticasone (Flonase) 50 mcg/actuation nasal spray Administer 2 sprays into each nostril in the morning. Shake gently. Before first use, prime pump. After use, clean tip and replace cap. fluticasone propion-salmeteroL (Advair Diskus) 500-50 mcg/dose diskus inhaler inhale 1 puff by mouth and INTO THE LUNGS twice a day metoprolol succinate XL (Toprol-XL) 25 mg 24 hr tablet Take 1 tablet (25 mg) by mouth in the morning. Do not crush or chew. 90 tablet 3 sacubitril-valsartan (Entresto) 49-51 mg tablet Take 1 tablet by mouth in the morning and at bedtime. 180 tablet 3 spironolactone (Aldactone) 25 mg tablet Take 0.5 tablets (12.5 mg) by mouth in the morning. 45 tablet 3 No current facility-administered medications on file prior to visit. Physical Exam: Constitutional General Appearance: well-nourished, well-developed, appears stated age Level of Distress: comfortable Psychiatric Mental Status: alert, normal affect Orientation: oriented to time, place, and person Insight: good judgement Eyes Lids and Conjunctivae: non-injected, no xanthelasma ENMT Ears: no lesions on external ear Nose: no lesions on external nose Oropharynx: no cyanosis, no pallor Neck Neck: supple, trachea midline Carotid Arteries: bilateral normal upstroke, no bruits Jugular Veins: normal jugular venous pressure Thyroid: not enlarged Lungs Respiratory Effort: unlabored Chest Exam: normal curvature, no thoracic deformity Auscultation: clear, no wheezing, no ral (more content not included)... [facility] 02-19-2023 Note No DFT since implant ation RTC q 6 months of device interrogation and pt is due for interrogation this march [facility] 02-19-2023 Note Continue statin [facility] 02-19-2023 Note As above [facility] 02-19-2023 Note Hypertension is well controlled Continue all meds Renal function has been stable [facility] 02-19-2023 Note [facility] CARDIOLOGY PROGR ESS NOTE HPI: Kristy Doherty is a 67 y.o. male here for chronic systolic hf, HTN, syncope, AICD, mild CAD. HPI Overall pt is doing quite well, denied any concerning or activity limiting symptoms Denied chest pain, shortness of breath, orthopnea or palpitations States cardiac rehab is going well, and that he has 1 week of rehab left. Review of Systems Constitutional: Negative. Respiratory: Negative. Cardiovascular: Negative. Neurological: Negative. All other systems reviewed and are negative. Previous HPI 11/30/22 He is a 67-year-old man who is seen in follow-up for recent onset systolic heart failure. He has prior history of hypertension. In June 2022 he was admitted to the [facility] with syncope and echocardiogram showed new onset systolic heart failure with ejection fraction of 25%. Carotid ultrasound showed no significant stenosis. CT head was negative for intracranial pathology. He ended up being transferred to [facility] and underwent carotid catheterization that showed mild coronary artery disease. He was discharged on LifeVest, metoprolol succinate and Entresto. He reported that he was drinking alcoholic beverages on a daily basis. The first episode of syncope was on 07/01/2022 at work. Another episode of syncope happened at home on 07/30/2022. He was wearing a LifeVest that did not shows clear arrhythmia by rhythm strips. He then underwent a dual-chamber [employer] ICD placement on 09/04/2022. today he reports that he has been doing well. He has had no recurrence of syncope. He denies chest pain. He has no shortness of breath on exertion. No leg edema. Visit Vitals BP 110/64 Pulse 92 Ht 1.727 m (5' 8 ) Wt 83 kg (183 lb) SpO2 98% BMI 27.83 kg/m??? Smoking Status Former BSA 2 m??? No Known Allergies Medications: Current Outpatient Medications on File Prior to Visit Medication Sig Dispense Refill albuterol 90 mcg/actuation inhaler Inhale 2 puffs every 4 (four) hours if needed for wheezing. allopurinol (Zyloprim) 300 mg tablet Take 300 mg by mouth in the morning. aspirin 81 mg chewable tablet Chew 1 tablet (81 mg) in the morning. 30 tablet 11 atorvastatin (Lipitor) 40 mg tablet Take 1 tablet (40 mg) by mouth at bedtime. 100 tablet 2 dapagliflozin (Farxiga) 10 mg Take 1 tablet (10 mg) by mouth in the morning. 100 tablet 2 Dupixent Syringe 300 mg/2 mL syringe injection fluticasone (Flonase) 50 mcg/actuation nasal spray Administer 2 sprays into each nostril in the morning. Shake gently. Before first use, prime pump. After use, clean tip and replace cap. fluticasone propion-salmeteroL (Advair Diskus) 500-50 mcg/dose diskus inhaler inhale 1 puff by mouth and INTO THE LUNGS twice a day metoprolol succinate XL (Toprol-XL) 25 mg 24 hr tablet Take 1 tablet (25 mg) by mouth in the morning. Do not crush or chew. 90 tablet 3 spironolactone (Aldactone) 25 mg tablet Take 0.5 tablets (12.5 mg) by mouth in the morning. 45 tablet 3 [DISCONTINUED] sacubitriL-valsartan (Entresto) 24-26 mg tablet Take 1 tablet by mouth in the morning and at bedtime. 180 tablet 3 No current facility-administered medications on file prior to visit. Physical Exam: Constitutional: Appearance: Normal appearance. Without apparent distress HENT: Head: Normocephalic and atraumatic. Nose: Nose normal. Mouth/Throat: Mouth: Mucous membranes are moist. Eyes: Extraocular Movements: Extraocular movements intact. Conjunctiva/sclera: Conjunctivae normal. Neck: Vascular: No JVD. Cardiovascular: Rate and Rhythm: Normal rate and regular rhythm. Pulses: Dorsalis pedis pulses are 3 on the right side and 3on the left side. Posterior tibial pulses are 3 on the right side and 3 on the left side. Heart sounds: Normal heart sounds, S1 normal and S2 normal. Pulmonary: Effort: Pulmonary effort is normal. Breath sounds: Normal breath sounds. Abdominal: General: Bowel sounds are normal. Palpations: Abdomen is soft. Musculoskeletal: General: Normal range of motion. Cervical back: Normal range of motion. Right lower leg: No edema. Left lower leg: No edema. Skin: General: Skin is warm and dry. Capillary Refill: Capillary refill takes less than 2 seconds. Neurological: General: No focal deficit present. Mental Status: alert and oriented to person, place, and time. Psychiatric: Mood and Affect: Mood normal. Behavior: Behavior normal. Thought Content: Thought content normal. Judgment: Judgment normal. Labs: CBC stable Renal function normal K+ and NA normal Last lab values have been reviewed CV Testing: Echocardiogram 10/28/2022: Ventricular systolic function is moderately to severely reduced with global hypokinesis, LVEF is 25 to 30%. The right ventricle is normal in size with normal systolic function. Mild mitral tricuspid and aortic regurgitation. Mildly elevated right-sided pressures. Echocardiogram 08/18/2022: (more content not included)... [facility] 02-19-2023 Note Patient here per car diac rehab to discuss possible titrating up on Entresto. He has no cardia symptoms whatsoever. Feels great. Review of Systems All other systems reviewed and are negative. [facility] 02-19-2023 Note Coronary artery dise ase is stable Continue GDMT- ASA lipitor and toprol- Pt tolerating cardiac rehab well and states he has 1 more week of rehab continue risk factor modifications- heart healthy diet, regular exercise as tolerated and continue all medications. [facility] 02-19-2023 Note [facility] II- currently e uvolemic without exacerbation Continue GDMT- ASA, lipitor, toprol, farxiga, aldactone and will increase entresto to 49-51 mg bid Repeat BMP in 1 week to assess renal function and electrolyes Diuretic therapy- farxiga- pt is euvolemic currently Monitor daily weights, I&O, fluid restriction 1.5-2L/day, renal function and electrolytes- [facility] 11-30-2022 Note [place] [facility] - [facility] Subjective Kristy Doherty is a 67 y.o. year old male patient being seen for 3 mo follow up s/p ICD placement. Had labs last month. He sees neurology tomorrow. No syncope since last visit in [facility] on 11/02/2022. Patient Active Problem List Diagnosis New onset of congestive heart failure (CMS/HCC) Asthma History of malignant neoplasm of prostate Hypomagnesemia Hypertension Syncope and collapse Coronary artery disease involving [place] coronary artery of [place] heart without angina pectoris Chronic systolic heart failure (CMS/HCC) Depressive disorder Dyslipidemia Prediabetes Seasonal allergic rhinitis Steatosis of liver Vitamin D deficiency Nonischemic cardiomyopathy (CMS/HCC) ICD (implantable cardioverter-defibrillator) in place Family History Problem Relation Name Age of Onset Other (pacemaker) Mother Social History Tobacco Use Smoking status: Former Types: Cigarettes Smokeless tobacco: Never Substance Use Topics Alcohol use: Yes Alcohol/week: 14.0 standard drinks Types: 14 Cans of beer per week Comment: occasional Drug use: Never HPI He is a 67-year-old man who is seen in follow-up for recent onset systolic heart failure. He has prior history of hypertension. In June 2022 he was admitted to the [facility] with syncope and echocardiogram showed new onset systolic heart failure with ejection fraction of 25%. Carotid ultrasound showed no significant stenosis. CT head was negative for intracranial pathology. He ended up being transferred to [facility] and underwent carotid catheterization that showed mild coronary artery disease. He was discharged on LifeVest, metoprolol succinate and Entresto. He reported that he was drinking alcoholic beverages on a daily basis. The first episode of syncope was on 07/01/2022 at work. Another episode of syncope happened at home on 07/30/2022. He was wearing a LifeVest that did not shows clear arrhythmia by rhythm strips. He then underwent a dual-chamber [employer] ICD placement on 09/04/2022. today he reports that he has been doing well. He has had no recurrence of syncope. He denies chest pain. He has no shortness of breath on exertion. No leg edema. Review of Systems All other systems reviewed and are negative. Objective Visit Vitals BP 97/63 (BP Location: Right arm, Patient Position: Sitting) Pulse 78 Ht 1.727 m (5' 8 ) Wt 79.4 kg (175 lb) SpO2 97% BMI 26.61 kg/m??? Smoking Status Former BSA 1.95 m??? Physical Exam Constitutional: Appearance: He is well-developed. He is not ill-appearing. HENT: Head: Normocephalic and atraumatic. Nose: Nose normal. Eyes: General: No scleral icterus. Pupils: Pupils are equal, round, and reactive to light. Neck: Thyroid: No thyromegaly. Vascular: No JVD. Cardiovascular: Rate and Rhythm: Normal rate and regular rhythm. Pulses: Radial pulses are 2+ on the right side and 2+ on the left side. Heart sounds: Normal heart sounds. No murmur heard. No friction rub. No gallop. Pulmonary: Effort: Pulmonary effort is normal. No respiratory distress. Breath sounds: Normal breath sounds. No wheezing or rales. Chest: Chest wall: No tenderness. Abdominal: General: Bowel sounds are normal. There is no distension. Palpations: Abdomen is soft. Tenderness: There is no abdominal tenderness. Musculoskeletal: General: No swelling. Cervical back: Neck supple. Skin: General: Skin is warm and dry. Neurological: General: No focal deficit present. Mental Status: He is alert and oriented to person, place, and time. Psychiatric: Mood and Affect: Mood normal. Behavior: Behavior is cooperative. Judgment: Judgment normal. Allergies No Known Allergies Medications Current Outpatient Medications: albuterol 90 mcg/actuation inhaler, Inhale 2 puffs every 4 (four) hours if needed for wheezing., Disp: , Rfl: allopurinol (Zyloprim) 300 mg tablet, Take 300 mg by mouth in the morning., Disp: , Rfl: aspirin 81 mg chewable tablet, Chew 1 tablet (81 mg) in the morning., Disp: 30 tablet, Rfl: 11 atorvastatin (Lipitor) 40 mg tablet, Take 1 tablet (40 mg) by mouth at bedtime., Disp: 100 tablet, Rfl: 2 dapagliflozin (Farxiga) 10 mg, Take 1 tablet (10 mg) by mouth in the morning., Disp: 100 tablet, Rfl: 2 Dupixent Syringe 300 mg/2 mL syringe injection, , Disp: , Rfl: fluticasone propion-salmeteroL (Advair Diskus) 500-50 mcg/dose diskus inhaler, inhale 1 puff by mouth and INTO THE LUNGS twice a day, Disp: , Rfl: sacubitriL-valsartan (Entresto) 24-26 mg tablet, Take 1 tablet by mouth in the morning and at bedtime., Disp: 180 tablet, Rfl: 3 spironolactone (Aldactone) 25 mg tablet, Take 0.5 tablets (12.5 mg) by mouth in the morning., Disp: 45 tablet, Rfl: 3 fluticasone (Flonase) 50 mcg/actuation nasal spray, Administer 2 sprays into each nostril in the morning. Shake gently. Before fir (more content not included)... [facility] 11-02-2022 Note [place] Cardiology Note [place] Reason for follow up: syncopal episode last week HPI: patient here s/p ICD placement for NICM HFrEF EF 25% 09/04/22 He has been doing well and device insertion site healed well. He has no complaints of chest pain, SOB, [place], palpitations He had recent sudden syncope while out drinking a nonalcoholic beer; there were no precipitating factors, no presyncope. Patient was sitting in chair and had sudden syncope I checked device and had report made which was discussed with [facility]. There were no concerns for Vt/VF or any arrhythmia recently despite having syncope. ---- HPI: Kristy Doherty is a 67 y.o. year old with past medical history of acute onset systolic heart failure, hypertension, syncope and collapse. He was recently admitted to [facility] for syncope and had a TTE which show new systolic heart failure with EF 25% with global hypokinesis. He had no prior symptoms to this event. EKG showed PVCs and PACs. He had bilateral carotid artery ultrasound which should 0-49% flow stenosis. CT head negative for intracranial concerns. He was transferred to [facility] for heart cath He does drink 2 alcoholic beverages per day, previous smoking of cigarettes. He was discharged with a LifeVest and his recent presyncope and falls concerns for possible VT/VF. He was discharged on metoprolol 50 mg daily and Entresto 24/26 mg twice daily. Patient states he has felt fine since recent discharge. He has not had any heart failure symptoms and was shocked by the results of the event. He has had his lifevest beep at him several times for possible placement issues and is having lifevest rep come by to adjust today. Review of Systems Constitutional: Negative for diaphoresis, fever and malaise/fatigue. Cardiovascular: Negative for chest pain, dyspnea on exertion, leg swelling, orthopnea and syncope. Respiratory: Negative for shortness of breath and sleep disturbances due to breathing. Neurological: Negative for light-headedness and weakness. All other systems reviewed and are negative. PMH: Past Medical History: Diagnosis Date Asthma 07/29/2012 CHF (congestive heart failure) ([facility]) Coronary artery disease History of malignant neoplasm of prostate 07/03/2022 Hypertension 07/03/2022 PSH: Past Surgical History: Procedure Laterality Date BAND HEMORRHOIDECTOMY CARDIAC CATHETERIZATION PROSTATECTOMY SINUS SURGERY SH: Social Determinants of Health Tobacco Use: Medium Risk Smoking Tobacco Use: Former Smokeless Tobacco Use: Never Passive Exposure: Not on file Alcohol Use: Not on file Financial Resource Strain: Not on file Food Insecurity: Not on file Transportation Needs: Not on file Physical Activity: Not on file Stress: Not on file Social Connections: Not on file Intimate Partner Violence: Not on file Depression: Not on file Housing Stability: Not on file Allergies: No Known Allergies Weight: 77.1kg Meds: Current Outpatient Medications on File Prior to Visit Medication Sig Dispense Refill albuterol 90 mcg/actuation inhaler Inhale 2 puffs every 4 (four) hours if needed for wheezing. allopurinol (Zyloprim) 300 mg tablet Take 300 mg by mouth in the morning. aspirin 81 mg chewable tablet Chew 1 tablet (81 mg) in the morning. 30 tablet 11 atorvastatin (Lipitor) 40 mg tablet Take 1 tablet (40 mg) by mouth at bedtime. 100 tablet 2 dapagliflozin (Farxiga) 10 mg Take 1 tablet (10 mg) by mouth in the morning. 100 tablet 2 Dupixent Syringe 300 mg/2 mL syringe injection fluticasone (Flonase) 50 mcg/actuation nasal spray Administer 2 sprays into each nostril in the morning. Shake gently. Before first use, prime pump. After use, clean tip and replace cap. fluticasone propion-salmeteroL (Advair Diskus) 500-50 mcg/dose diskus inhaler inhale 1 puff by mouth and INTO THE LUNGS twice a day spironolactone (Aldactone) 25 mg tablet Take 0.5 tablets (12.5 mg) by mouth in the morning. 45 tablet 3 metoprolol succinate XL (Toprol-XL) 50 mg 24 hr tablet Take 1 tablet (50 mg) by mouth in the morning for 97 doses. Do not crush or chew. Do not start before July 05, 2022. 30 tablet 3 metoprolol tartrate (Lopressor) 50 mg tablet 50 mg 1 (one) time each day at the same time. sacubitriL-valsartan (Entresto) 24-26 mg tablet Take 1 tablet by mouth in the morning and at bedtime. 60 tablet 0 [DISCONTINUED] dupilumab (Dupixent Pen) 300 mg/2 mL pen injector Inject 2 mL under the skin. [DISCONTINUED] fluticasone propion-salmeteroL (Advair Diskus) 250-50 mcg/dose diskus inhaler Inhale 1 puff in the morning and at bedtime. Rinse mouth with water after use to reduce aftertaste and incidence of candidiasis. Do not swallow. [DISCONTINUED] montelukast (Singulair) 10 mg tablet 10 mg 1 (one) time each day at the same time. [DISCONTINUED] naproxen (Naprosy (more content not included)... [facility] 11-02-2022 Note Review of Systems Cardiovascular: Positive for syncope. Passed out last Wednesday (makes the 4th time since June). Neurological: Positive for dizziness. [place] dizzy before syncope episode. Kristy is here for a 2 month follow up and results of his Echo. He has passed out 4 times since June, most recently last Wednesday. They want to know if his Pacemaker/Defibrillator will show this? They are thinking maybe it's not heart related? Also, please discuss Metoprolol - should he be on this? [facility] 09-15-2022 Note [place] [facility] Note [place] Reason for follow up: wound check HPI: He is here for wound check status post ICD placement due to nonischemic cardiomyopathy with reduced EF. He denies aches, chills, fever. His device placement was complicated with pneumothorax which has been resolved per recent chest x-ray. He was recommended to follow-up with PCP in 6 months with chest x-ray ---- HPI: Kristy Doherty is a 66 y.o. year old with past medical history of acute onset systolic heart failure, hypertension, syncope and collapse. He was recently admitted to [facility] for syncope and had a TTE which show new systolic heart failure with EF 25% with global hypokinesis. He had no prior symptoms to this event. EKG showed PVCs and PACs. He had bilateral carotid artery ultrasound which should 0-49% flow stenosis. CT head negative for intracranial concerns. He was transferred to [facility] for heart cath He does drink 2 alcoholic beverages per day, previous smoking of cigarettes. He was discharged with a LifeVest and his recent presyncope and falls concerns for possible VT/VF. He was discharged on metoprolol 50 mg daily and Entresto 24/26 mg twice daily. Patient states he has felt fine since recent discharge. He has not had any heart failure symptoms and was shocked by the results of the event. He has had his lifevest beep at him several times for possible placement issues and is having lifevest rep come by to adjust today. Review of Systems Constitutional: Negative for diaphoresis, fever and malaise/fatigue. Cardiovascular: Negative for chest pain, dyspnea on exertion, leg swelling, orthopnea and syncope. Respiratory: Negative for shortness of breath and sleep disturbances due to breathing. Neurological: Negative for light-headedness and weakness. All other systems reviewed and are negative. PMH: Past Medical History: Diagnosis Date Asthma 07/29/2012 CHF (congestive heart failure) ([facility]) Coronary artery disease History of malignant neoplasm of prostate 07/03/2022 Hypertension 07/03/2022 PSH: Past Surgical History: Procedure Laterality Date BAND HEMORRHOIDECTOMY CARDIAC CATHETERIZATION PROSTATECTOMY SINUS SURGERY SH: Social Determinants of Health Tobacco Use: Medium Risk Smoking Tobacco Use: Former Smokeless Tobacco Use: Never Passive Exposure: Not on file Alcohol Use: Not on file Financial Resource Strain: Not on file Food Insecurity: Not on file Transportation Needs: Not on file Physical Activity: Not on file Stress: Not on file Social Connections: Not on file Intimate Partner Violence: Not on file Depression: Not on file Housing Stability: Not on file Allergies: No Known Allergies Weight: 77.1kg Meds: Current Outpatient Medications on File Prior to Visit Medication Sig Dispense Refill albuterol 90 mcg/actuation inhaler Inhale 2 puffs every 4 (four) hours if needed for wheezing. allopurinol (Zyloprim) 300 mg tablet Take 300 mg by mouth in the morning. aspirin 81 mg chewable tablet Chew 1 tablet (81 mg) in the morning. 30 tablet 11 atorvastatin (Lipitor) 40 mg tablet Take 1 tablet (40 mg) by mouth at bedtime. 90 tablet 3 dapagliflozin (Farxiga) 10 mg Take 1 tablet (10 mg) by mouth in the morning. 90 tablet 3 [] doxycycline (Vibra-Tabs) 100 mg tablet Take 1 tablet (100 mg) by mouth in the morning and at bedtime for 10 days. Take with a full glass of water and do not lie down for at least 30 minutes after. 20 tablet 0 dupilumab (Dupixent Pen) 300 mg/2 mL pen injector Inject 2 mL under the skin. fluticasone (Flonase) 50 mcg/actuation nasal spray Administer 2 sprays into each nostril in the morning. Shake gently. Before first use, prime pump. After use, clean tip and replace cap. fluticasone propion-salmeteroL (Advair Diskus) 250-50 mcg/dose diskus inhaler Inhale 1 puff in the morning and at bedtime. Rinse mouth with water after use to reduce aftertaste and incidence of candidiasis. Do not swallow. metoprolol succinate XL (Toprol-XL) 50 mg 24 hr tablet Take 1 tablet (50 mg) by mouth in the morning for 97 doses. Do not crush or chew. Do not start before July 05, 2022. 30 tablet 3 naproxen (Naprosyn) 500 mg tablet Take 500 mg by mouth with breakfast and with evening meal. predniSONE (Deltasone) 10 mg tablet Take 10 mg by mouth in the morning. sacubitriL-valsartan (Entresto) 24-26 mg tablet Take 1 tablet by mouth in the morning and at bedtime. 60 tablet 0 spironolactone (Aldactone) 25 mg tablet Take 0.5 tablets (12.5 mg) by mouth in the morning. 45 tablet 3 No current facility-administered medications on file prior to visit. Physical Exam: Constitutional General Appearance: well-nourished, well-developed, appears stated age Level of Distress: comfortable Psychiatric Mental Status: alert, normal affect Orientation: john (more content not included)... [facility] 09-04-2022 Note DUAL CHAMBER ICD IMP LANT PROCEDURE NOTE DATE OF PROCEDURE: 09/04/2022 PERFORMING PHYSICIAN: Dr. Bobo Raymond CONSENT: Patient LOCATION: EP Lab PROCEDURE PERFORMED: 1. Implantation of dual chmaber ICD ([employer]): submuscular implant 2. Ultrasound guided venous access INDICATIONS: 1. Dilated ischemic cardiomyopathy 2. NYHA class II-III PROCEDURAL SEDATION: Versed and Fentanyl. Moderate sedation was administered by the sedation nurse under my supervision and noted in the CVL log. Intraprocedural face to face sedation time: 71min. Monitoring: Cardiac telemetry, Blood pressure, continuous pulse oxymetry. FLUOROSCOPY TIME: 2min 24sec/ 10mGray. EBL: 25cc SPECIMEN REMOVED: None PREPARATION: 66 year old with past medical history of acute onset systolic heart failure, hypertension, syncope and collapse was noted with systolic heart failure with EF 25% with global hypokinesis. EKG showed PVCs and PACs. His who is with him states that this was a sudden sybncope suggestiove of a cardiac etiology. His EF has remained low despite GDMT. PROCEDURAL DETAILS: Patient was placed in trendelenberg position and ultrasound was used to evaluate the patency of left axillary vein and for venous access. Left axillary venous access was obtained using modified seldinger technique using a 5 [place] micro-puncture needle on two occasions and 0.35 wires were placed. Local infiltration of 1% Lidocaine was performed, and an incision was created in the left upper chest. Dissection was then performed using cautery down to the fascial plane above the muscle. The belly of the pectoralis was identified and with gentle blunt dissection a small pocket was created for the device in submuscular fashion. 6 and 8 [place] Safesheaths were placed over the wire. An active fixation [employer] ICD lead was then delivered through the 8Fsheath to the right ventricle. After confirmation of lead position on orthogonal views (VARGAS and SLOVAK) to confirm septal position, the screw was activated, and the lead was placed in the right ventricular mid cavity towards the septum. After confirmation of good sensing parameters, injury pattern and pacing thresholds, 10V pacing was done and no diaphragmatic stimulation was noted. It was then secured in the pocket using three 1-0 Silk sutures. Then an active fixation [employer] lead was delivered through the 6Fsheath to the right atrial appendage. After confirmation of lead position on orthogonal views (VARGAS and SLOVAK), the screw was activated. Good sensing parameters, injury pattern and pacing thresholds, the lead was then tested using Lambert's maneuver. 10V pacing was done and no diaphragmatic stimulation was noted. It was then secured in the pocket using three 1-0 Silk sutures. Pocket hemostasis was secured, and it was then copiously and vigorously irrigated with antibiotic solution. The leads were attached to the generator and then wrapped under the device and the device was tacked to underlying muscle and placed in the pocket. The pocket was closed in layers: subcutaneous layer using 2-0 Vicryl; skin using 2-0 suture. Glue was applied and Tegaderm dressing was placed on top. Lead parameters were then rechecked through the device as noted below. The patient was returned to the short stay room for post procedural observation. No immediate procedural complications were noted. POST PROCEDURE EXAM: Patient was hemodynamically stable. COMPLICATIONS: None. IMPRESSION: 1. Successful dual chamber ICD with excellent pacing and sensing parameters.: submuscular implant RECOMMENDATIONS: 1. Occlusive dressing to be removed after 2 weeks. 2. Do not wet the incision for 7 days. 3. No lifting heavy weights using arm on the same side x 3weeks 4. Do not lift elbow above the shoulder on the same side for 4-6 weeks. 5. No driving for 1 month. 6. F/u in device clinic 1 week from discharge or sooner for any concerns. Bobo Raymond MD Cardiac Electrophysiology [facility] 09-04-2022 Note Patient: Kristy stewart Procedure Information Date/Time: 09/04/22 1300 Procedure: ICD DC NEW - currently have life vest Location: [facility] [employer] [facility] [facility] / [facility] (Cath) Providers: Bobo Raymond MD Clinical information reviewed: Allergies Meds Physical Exam Airway Mallampati: III Cardiovascular - normal exam Dental Pulmonary - normal exam Abdominal - normal exam Anesthesia Plan other (Conscious sedation) Anesthetic plan and risks discussed with patient. Use of blood products discussed with patient who consented to blood products. Plan discussed with fellow. Additional Equipment Requests [facility] 09-01-2022 Note [place] Electrophysiology Note Reason for follow up: ADHF and syncope HPI: Kristy Doherty is a 66 y.o. year old with past medical history of acute onset systolic heart failure, hypertension, syncope and collapse was recently admitted to [facility] for syncope and had a TTE which show new systolic heart failure with EF 25% with global hypokinesis. He had no prior symptoms to this event. EKG showed PVCs and PACs. He had bilateral carotid artery ultrasound which should 0-49% flow stenosis. CT head negative for intracranial concerns. He was transferred to [facility] for heart cath. His who is with him states that this was a sudden sybncope suggestiove of a cardiac etiology. He was discharged with a LifeVest and his recent presyncope and falls concerns for possible VT/VF. He was discharged on metoprolol 50 mg daily and Entresto 24/26 mg twice daily. Since recent discharge, he had another episode but the device did not fire. He has not had any heart failure symptoms and was shocked by the results of the event. He has had his lifevest beep at him several times for possible placement issues. Review of Systems Constitutional: Negative for diaphoresis, fever and malaise/fatigue. Cardiovascular: Positive for syncope. Negative for chest pain, dyspnea on exertion, leg swelling and orthopnea. Respiratory: Negative for shortness of breath and sleep disturbances due to breathing. Neurological: Negative for light-headedness and weakness. All other systems reviewed and are negative. PMH: Past Medical History: Diagnosis Date Asthma 07/29/2012 CHF (congestive heart failure) ([facility]) Coronary artery disease History of malignant neoplasm of prostate 07/03/2022 Hypertension 07/03/2022 PSH: Past Surgical History: Procedure Laterality Date BAND HEMORRHOIDECTOMY CARDIAC CATHETERIZATION PROSTATECTOMY SINUS SURGERY SH: Social Determinants of Health Tobacco Use: Medium Risk Smoking Tobacco Use: Former Smokeless Tobacco Use: Never Passive Exposure: Not on file Alcohol Use: Not on file Financial Resource Strain: Not on file Food Insecurity: Not on file Transportation Needs: Not on file Physical Activity: Not on file Stress: Not on file Social Connections: Not on file Intimate Partner Violence: Not on file Depression: Not on file Housing Stability: Not on file Allergies: No Known Allergies Weight: No results found for: PTWEIGHT Meds: Current Outpatient Medications on File Prior to Visit Medication Sig Dispense Refill albuterol 90 mcg/actuation inhaler Inhale 2 puffs every 4 (four) hours if needed for wheezing. aspirin 81 mg chewable tablet Chew 1 tablet (81 mg) in the morning. 30 tablet 11 atorvastatin (Lipitor) 40 mg tablet Take 1 tablet (40 mg) by mouth at bedtime. 90 tablet 3 dapagliflozin (Farxiga) 10 mg Take 1 tablet (10 mg) by mouth in the morning. 90 tablet 3 fluticasone (Flonase) 50 mcg/actuation nasal spray Administer 2 sprays into each nostril in the morning. Shake gently. Before first use, prime pump. After use, clean tip and replace cap. fluticasone propion-salmeteroL (Advair Diskus) 250-50 mcg/dose diskus inhaler Inhale 1 puff in the morning and at bedtime. Rinse mouth with water after use to reduce aftertaste and incidence of candidiasis. Do not swallow. metoprolol succinate XL (Toprol-XL) 50 mg 24 hr tablet Take 1 tablet (50 mg) by mouth in the morning for 97 doses. Do not crush or chew. Do not start before July 05, 2022. 30 tablet 3 naproxen (Naprosyn) 500 mg tablet Take 500 mg by mouth with breakfast and with evening meal. sacubitriL-valsartan (Entresto) 24-26 mg tablet Take 1 tablet by mouth in the morning and at bedtime for 195 doses. 60 tablet 1 spironolactone (Aldactone) 25 mg tablet Take 0.5 tablets (12.5 mg) by mouth in the morning. 45 tablet 3 [DISCONTINUED] montelukast (Singulair) 10 mg tablet 1 (one) time each day at the same time. [DISCONTINUED] saccharomyces boulardii (Florastor) 250 mg capsule 1 capsule every 12 (twelve) hours. [DISCONTINUED] allopurinol (Zyloprim) 300 mg tablet [DISCONTINUED] cetirizine (ZyrTEC) 10 mg tablet 1 (one) time each day at the same time. [DISCONTINUED] dupilumab (DUPIXENT SYRINGE SUBQ) Inject under the skin. [DISCONTINUED] hydroCHLOROthiazide (HYDRODiuril) 25 mg tablet Take 25 mg by mouth in the morning. [DISCONTINUED] methylPREDNISolone (Medrol Dospak) 4 mg tablets use as directed FOLLOW DIRECTIONS ON BACK OF FOIL PACK [DISCONTINUED] predniSONE (Deltasone) 10 mg tablet take 2 tablets four times a day for 2 days then 1 AND 1/2 tablets... (REFER TO PRESCRIPTION NOTES). [DISCONTINUED] simvastatin (Zocor) 40 mg tablet Take 40 mg by mouth in the morning. No current facility-administered medications on file prior to visit. Physical Exam: Constitutional General Appearance: well-nourished, well-developed, appears stated age Level of Distress: comfortable Psychiatric Mental (more content not included)... [facility] 08-24-2022 Note [place] [facility]iology - [facility] Subjective Kristy Doherty is a 66 y.o. year old male patient being seen for follow up echo per Mildred Benjamin CNP. states he had another syncopal episode with LOC on 07/30/2022. She wants to know why the LifeVest did not defibrillate him. He did not seek medical attention, or call our office. He denies chest pain, SOB, and lightheadedness. Patient Active Problem List Diagnosis New onset of congestive heart failure (CMS/HCC) Asthma History of malignant neoplasm of prostate Hypomagnesemia Hypertension Syncope and collapse Coronary artery disease involving [place] coronary artery of [place] heart without angina pectoris Acute on chronic systolic heart failure (CMS/HCC) Family History Problem Relation Name Age of Onset Other (pacemaker) Mother Social History Tobacco Use Smoking status: Former Types: Cigarettes Smokeless tobacco: Never Substance Use Topics Alcohol use: Yes Alcohol/week: 14.0 standard drinks Types: 14 Cans of beer per week Comment: occasional Drug use: Never HPI Kristy is seen in follow-up. He is a 66-year-old man who is seen in follow-up for recent onset systolic heart failure. He has prior history of hypertension. In June 2022 he was admitted to the [facility] with syncope and echocardiogram showed new onset systolic heart failure with ejection fraction of 25%. Carotid ultrasound showed no significant stenosis. CT head was negative for intracranial pathology. He ended up being transferred to [facility] and underwent carotid catheterization that showed mild coronary artery disease. He was discharged on LifeVest, metoprolol succinate and Entresto. He reports that he drinks alcoholic beverages on a daily basis. The first episode of syncope was on 07/01/2022 at work. Today he reports that he had another episode of syncope at home on 07/30/2022. his was with him. He was sitting and passed out. She says that she gave him CPR when he woke up. 2 days later they called the [facility] and they were told that the LifeVest strips did not show any arrhythmias. He was wearing the LifeVest throughout all the episode. He denies chest pain. He has no shortness of breath on exertion. No leg edema. Review of Systems Cardiovascular: Positive for syncope. Neurological: Positive for light-headedness. All other systems reviewed and are negative. Objective Visit Vitals BP 124/76 (BP Location: Left arm, Patient Position: Sitting) Pulse 72 Ht 1.727 m (5' 8 ) Wt 82.6 kg (182 lb) SpO2 96% BMI 27.67 kg/m??? Smoking Status Former BSA 1.99 m??? Physical Exam Constitutional: Appearance: He is well-developed. He is not ill-appearing. HENT: Head: Normocephalic and atraumatic. Nose: Nose normal. Eyes: General: No scleral icterus. Pupils: Pupils are equal, round, and reactive to light. Neck: Thyroid: No thyromegaly. Vascular: No JVD. Cardiovascular: Rate and Rhythm: Normal rate and regular rhythm. Pulses: Radial pulses are 2+ on the right side and 2+ on the left side. Heart sounds: Normal heart sounds. No murmur heard. No friction rub. No gallop. Pulmonary: Effort: Pulmonary effort is normal. No respiratory distress. Breath sounds: Normal breath sounds. No wheezing or rales. Chest: Chest wall: No tenderness. Abdominal: General: Bowel sounds are normal. There is no distension. Palpations: Abdomen is soft. Tenderness: There is no abdominal tenderness. Musculoskeletal: General: No swelling. Cervical back: Neck supple. Skin: General: Skin is warm and dry. Neurological: General: No focal deficit present. Mental Status: He is alert and oriented to person, place, and time. Psychiatric: Mood and Affect: Mood normal. Behavior: Behavior is cooperative. Judgment: Judgment normal. Allergies No Known Allergies Medications Current Outpatient Medications: albuterol 90 mcg/actuation inhaler, Inhale 2 puffs every 4 (four) hours if needed for wheezing., Disp: , Rfl: aspirin 81 mg chewable tablet, Chew 1 tablet (81 mg) in the morning., Disp: 30 tablet, Rfl: 11 atorvastatin (Lipitor) 40 mg tablet, Take 1 tablet (40 mg) by mouth at bedtime., Disp: 90 tablet, Rfl: 3 dupilumab (DUPIXENT SYRINGE SUBQ), Inject under the skin., Disp: , Rfl: fluticasone (Flonase) 50 mcg/actuation nasal spray, Administer 2 sprays into each nostril in the morning. Shake gently. Before first use, prime pump. After use, clean tip and replace cap., Disp: , Rfl: fluticasone propion-salmeteroL (Advair Diskus) 250-50 mcg/dose diskus inhaler, Inhale 1 puff in the morning and at bedtime. Rinse mouth with water after use to reduce aftertaste and incidence of candidiasis. Do not swallow., Disp: , Rfl: metoprolol succinate XL (Toprol-XL) 50 mg 24 hr tablet, Take 1 tablet (50 mg) by mouth in the morning for 97 doses. Do not crush or chew. Do not start before July 05, 2022., Disp: 30 tabl (more content not included)... [facility] 08-18-2022 Note PROCEDURE: XR FOOT L T MIN 3 VIEWS HISTORY: Pain in left foot ; acute forefoot pain COMPARISON: XR foot left 08/03/2022 FINDINGS: BONES:No fracture, dislocation, or significant degenerative joint disease. Mild degenerative enthesopathic spurring of the calcaneus. SOFT TISSUES:No visible soft tissue swelling. EFFUSION:None visible. OTHER: Negative. IMPRESSION: 1. No acute bone abnormality or suspicious findings to account for patient's symptoms. Electronically authenticated by: BRIAN BRADSHAW Date: 2022-08-18 15:43 [facility] 08-04-2022 Note PROCEDURE: XR FOOT L T MIN 3 VIEWS COMPARISON: None. HISTORY: Pain in left foot FINDINGS: BONES:No acute fracture or dislocation. Mild enthesopathic spurring of the calcaneus at the Achilles and plantar insertions. Mild degenerative changes of the midfoot SOFT TISSUES:Negative. No visible soft tissue swelling. EFFUSION:None visible. OTHER: Negative. IMPRESSION: No acute abnormality Electronically authenticated by: ASIF JOHN Date: 2022-08-04 08:48 [facility] 07-07-2022 Note Coronary artery dise ase is mild and stable -will add aspirin 81mg and moderate statin therapy lipitor 40mg [facility] 07-07-2022 Note Hypertension is stab le Continue medications [facility] 07-07-2022 Note -per cath results, w ill consider adding SGLT2 and MRA if repeat echo in 1 month does not show improved systolic function -EF 25%, discharged with lifevest -pending repeat echo 1 month may consider 3 month echo, from there if EF not >35% he will need an ICD, pending future visit ECG if he has wide complexes he may no BiV ICD -continue [id number], entresto 24-26, will add medications pending echo [facility] 07-06-2022 Note Patient here for [facility] for CHF. He was discharged with a LifeVest. [employer] is coming to his house today to help with troubleshooting with the vest. Denies chest pain, SOB, and syncope. Review of Systems Neurological: Positive for light-headedness. All other systems reviewed and are negative. [facility] 07-06-2022 Note [place] Cardiology Note [place] Reason for follow up: s/p recent hospital admission with acute systolic heart failure HPI: Kristy Doherty is a 66 y.o. year old with past medical history of acute onset systolic heart failure, hypertension, syncope and collapse. He was recently admitted to [facility] for syncope and had a TTE which show new systolic heart failure with EF 25% with global hypokinesis. He had no prior symptoms to this event. EKG showed PVCs and PACs. He had bilateral carotid artery ultrasound which should 0-49% flow stenosis. CT head negative for intracranial concerns. He was transferred to [facility] for heart cath He does drink 2 alcoholic beverages per day, previous smoking of cigarettes. He was discharged with a LifeVest and his recent presyncope and falls concerns for possible VT/VF. He was discharged on metoprolol 50 mg daily and Entresto 24/26 mg twice daily. Patient states he has felt fine since recent discharge. He has not had any heart failure symptoms and was shocked by the results of the event. He has had his lifevest beep at him several times for possible placement issues and is having lifevest rep come by to adjust today. Review of Systems Constitutional: Negative for diaphoresis, fever and malaise/fatigue. Cardiovascular: Positive for syncope. Negative for chest pain, dyspnea on exertion, leg swelling and orthopnea. Respiratory: Negative for shortness of breath and sleep disturbances due to breathing. Neurological: Negative for light-headedness and weakness. All other systems reviewed and are negative. PMH: Past Medical History: Diagnosis Date Asthma 07/29/2012 CHF (congestive heart failure) (CMS/HCC) History of malignant neoplasm of prostate 07/03/2022 Hypertension 07/03/2022 PSH: Past Surgical History: Procedure Laterality Date BAND HEMORRHOIDECTOMY CARDIAC CATHETERIZATION PROSTATECTOMY SINUS SURGERY SH: Social Determinants of Health Tobacco Use: Medium Risk Smoking Tobacco Use: Former Smokeless Tobacco Use: Never Passive Exposure: Not on file Alcohol Use: Not on file Financial Resource Strain: Not on file Food Insecurity: Not on file Transportation Needs: Not on file Physical Activity: Not on file Stress: Not on file Social Connections: Not on file Intimate Partner Violence: Not on file Depression: Not on file Housing Stability: Not on file Allergies: No Known Allergies Weight: No results found for: PTWEIGHT Meds: Current Outpatient Medications on File Prior to Visit Medication Sig Dispense Refill albuterol 90 mcg/actuation inhaler Inhale 2 puffs every 4 (four) hours if needed for wheezing. dupilumab (DUPIXENT SYRINGE SUBQ) Inject under the skin. fluticasone (Flonase) 50 mcg/actuation nasal spray Administer 2 sprays into each nostril in the morning. Shake gently. Before first use, prime pump. After use, clean tip and replace cap. fluticasone propion-salmeteroL (Advair Diskus) 250-50 mcg/dose diskus inhaler Inhale 1 puff in the morning and at bedtime. Rinse mouth with water after use to reduce aftertaste and incidence of candidiasis. Do not swallow. metoprolol succinate XL (Toprol-XL) 50 mg 24 hr tablet Take 1 tablet (50 mg) by mouth in the morning for 97 doses. Do not crush or chew. Do not start before July 05, 2022. 30 tablet 3 sacubitriL-valsartan (Entresto) 24-26 mg tablet Take 1 tablet by mouth in the morning and at bedtime for 195 doses. 60 tablet 1 No current facility-administered medications on file prior to visit. Physical Exam: Constitutional General Appearance: well-nourished, well-developed, appears stated age Level of Distress: comfortable Psychiatric Mental Status: alert, normal affect Orientation: oriented to time, place, and person Insight: good judgement Eyes Lids and Conjunctivae: non-injected, no xanthelasma ENMT Ears: no lesions on external ear Nose: no lesions on external nose Oropharynx: no cyanosis, no pallor Neck Neck: supple, trachea midline Carotid Arteries: bilateral normal upstroke, no bruits Jugular Veins: normal jugular venous pressure Thyroid: not enlarged Lungs Respiratory Effort: unlabored Chest Exam: normal curvature, no thoracic deformity Auscultation: clear, no wheezing, no rales, no rhonchi Cardiovascular Rate And Rhythm: regular Heart Sounds: normal S1, normal s2, no gallop Systolic Murmur: not heard Diastolic Murmur: not heard Extremities: no cyanosis, no edema, no peripheral signs of emboli Peripheral Pulses Radial Pulse: normal Abdomen Inspection and Palpation: soft, non distended, no bruit, non tender Musculoskeletal Inspection: no joint swelling Neurologic Gait: normal gait Skin Inspection and Palpation: warm and dry Nails: no clubbing Labs: 07/04/22 Component Ref Range & Units 2 d ago 4 d ago Sodium 136 - 145 mmol/L 136 136 Potassium 3.5 - 5.1 mmol/L 3.6 3.8 Chloride 98 - 107 mmol/L 100 99 CO2 (more content not included)... [facility] [place] [facility] 07-04-2022 Note UTP Cardiology Progr ess Note Follow-up: acute systolic heart failure Subjective Patient seen this AM, he is pending discharge today. is also at bedside. He has been fitted for a LifeVest. He states he feels well overall, no issues overnight. He denies CP, dyspnea, orthopnea, PND, LE edema, dizziness/LH, palpitations, syncope. Objective Patient Vitals for the past 24 hrs: BP Temp Temp src Pulse Resp SpO2 Weight 07/04/22 1020 104/68 -- -- 84 17 95 % -- 07/04/22 0845 (!) 127/94 36.8 ???C (98.2 ???F) Oral 74 18 96 % -- 07/04/22 0600 -- -- -- -- -- -- 79.7 kg (175 lb 11.3 oz) 07/04/22 0400 107/80 36.7 ???C (98 ???F) -- 73 13 93 % -- 07/04/22 0000 119/67 -- -- 76 20 95 % -- 07/03/225 134/82 36.5 ???C (97.7 ???F) -- 78 20 95 % -- 07/03/221999 -- -- -- 80 15 95 % -- 07/03/22 1630 148/90 -- -- 91 26 96 % -- 07/03/22 1600 134/80 -- -- 85 20 96 % -- 07/03/22 1530 136/76 -- -- 87 22 94 % -- 07/03/22 1515 126/72 -- -- 88 19 95 % -- Physical Exam Vitals reviewed. Constitutional: Appearance: Normal appearance. He is normal weight. HENT: Head: Normocephalic and atraumatic. Right Ear: External ear normal. Left Ear: External ear normal. Mouth/Throat: Mouth: Mucous membranes are moist. Eyes: Extraocular Movements: Extraocular movements intact. Pupils: Pupils are equal, round, and reactive to light. Cardiovascular: Comments: Left radial cath site soft, nontender, no hematoma, mild ecchymosis. Pulmonary: Effort: Pulmonary effort is normal. Musculoskeletal: Cervical back: Normal range of motion and neck supple. Skin: General: Skin is warm and dry. Neurological: Mental Status: He is alert. Lab Results Component Value Date NA 136 07/04/2022 K 3.6 07/04/2022 CL 100 07/04/2022 ANIONGAP 7 07/04/2022 BUN 14 07/04/2022 CREATININE 0.91 07/04/2022 CALCIUM 8.2 (L) 07/04/2022 MG 2.0 07/04/2022 Lab Results Component Value Date BILITOT 1.2 (H) 07/02/2022 ALKPHOS 52 07/02/2022 AST 46 (H) 07/02/2022 ALT 46 07/02/2022 PROT 6.9 07/02/2022 ALBUMIN 3.7 07/02/2022 Lab Results Component Value Date WBC 7.75 07/04/2022 RBC 4.19 (L) 07/04/2022 HGB 13.6 07/04/2022 HCT 39.4 07/04/2022 MCV 94.0 07/04/2022 MCH 32.5 07/04/2022 MCHC 34.5 07/04/2022 RDW 12.8 07/04/2022 NEUTOPHILPCT 48.2 07/02/2022 LYMPHOPCT 27.2 07/02/2022 MONOPCT 14.4 (H) 07/02/2022 EOSPCT 8.7 (H) 07/02/2022 BASOPCT 1.2 (H) 07/02/2022 NEUTROABS 3.59 07/02/2022 LYMPHSABS 2.02 07/02/2022 MONOSABS 1.07 (H) 07/02/2022 EOSABS 0.65 (H) 07/02/2022 BASOSABS 0.09 07/02/2022 PLT 160 07/04/2022 NRBC 0.0 07/02/2022 Cardiovascular Laboratory Report (07/03/2022) FINAL IMPRESSIONS: Mild coronary artery disease Moderately reduced global left ventricular systolic function by noninvasive imaging RECOMMENDATIONS: Consider causes for nonischemic cardiomyopathy as clinically appropriate; further investigations as indicated Would repeat a limited echocardiogram with contrast to better delineate endocardial borders, evaluate ejection fraction and wall motion abnormalities Aggressive cardiovascular risk factor modification Optimal medical therapy for mild coronary artery disease should include aspirin, moderate to high intensity statin therapy, a beta-luis and an angiotensin-converting enzyme inhibitor/receptor luis or Entresto given reduced ejection fraction Should the ejection fraction be confirmed to be reduced by repeat limited echocardiogram, an SGLT2 inhibitor and spironolactone would be indicated Further recommendations deferred to the inpatient services Assessment/Plan Principal Problem: New onset of congestive heart failure (CMS/HCC) Active Problems: Asthma History of malignant neoplasm of prostate Hypomagnesemia Hypertension Syncope and collapse #Acute systolic heart failure #Syncope #HTN #CAD - mild per 07/03/2022 cath PLAN: -Consider nonischemic housing quality standard inspector for patients acute systolic heart failure. Patient reports that he drinks alcohol multiple days a week. Will have beer or mixed drinks. Advised that he abstain from any alcohol intake, he states understanding. Patient also reports he had a virus back in April which may have also been a cause. -Concern for syncope 2/2 to EF of 25% and possible VT/VF. He has been fitted for a LifeVest. Can plan to repeat limited ECHO in 1 month to see if any improvement in EF. If no improvement in 3 months then will need to further discuss AICD implant. -GDMT: patient has been started on Toprol 50mg daily and Entresto 24/26mg BID. -Consider starting Spironolactone and Farxiga as an outpatient. -Patient already discharged. Will need to also discuss starting ASA/statin at his follow-up appt given his mild CAD on cath. -Follow-up within 1 week of discharge, appt rescheduled for the [facility] as patient lives out in [place], [place], appt made for 07/06/2022. Neelam Gutierrez NP [facility]TP Cardiovasc (more content not included)... [facility] [place] [facility] 07-04-2022 Note Hospital Medicine Discharge Summary 07/02/2022 - 07/04/2022 Final Discharge Diagnosis: New onset of congestive heart failure (CMS/HCC) Nonischemic cardiomyopathy Syncope Asthma History of prostate cancer status post prostatectomy Admission Diagnosis: New onset of congestive heart failure (CMS/HCC) [I50.9] H&P on admission: Kristy Doherty is an 66 y.o. male with Past medical history of asthma, hypertension, prostate cancer s/p prostatectomy presents to [facility] [place] [facility] as a direct admission from [facility] with new onset CHF. Per report, patient originally presents to [facility] on 07/01/22 with syncope and collapse. 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 He denies any prodromal symptoms. He states when he awoke he was aware of his surroundings and began to have continuous vomiting. He does endorse a head injury and does have a bump on the back of his head. Upon arrival to [place], CT head was completed which shows no acute intracranial abnormality. Labs were completed which showed WBC 6.4, RBC 4.19, hemoglobin 13.5, hematocrit 38, sodium 134, potassium 2.5, chloride 94, BUN 12, creatinine 1.03, calcium 8.8. Potassium replacement was provided. Carotid Dopplers were completed showing 0 to 49% flow stenosis bilateral internal carotid arteries. Echocardiogram was then completed on 07/02/2022 showing EF of 25 to 30% with global hypokinesis. Cardiology at [facility] was contacted and they accepted patient for heart cath on 07/03/2022. Hospital course: Upon arrival to [facility], patient was found of a blood pressure of 130/100, heart rate 90, 94% on room air. Labs are completed showing BNP 632, magnesium 1.5, troponin 0.04 EKG was completed showing sinus rhythm with frequent and consecutive premature ventricular complexes as well as ST and T wave abnormality. Patient states he does have shortness of breath at times, but is always attributed this to his asthma. He also endorses some bouts of diarrhea over the past 24 hours. Denies any chest pain or shortness of breath at this time. He states that he no longer has a headache. The patient was seen and evaluated by cardiology services, he had coronary angiogram on July 03, 2022 showing mild coronary artery disease with moderately reduced global left ventricular systolic function by noninvasive imaging. Cardiology started him on metoprolol succinate and Entresto. They recommended LifeVest prior to discharge and it was ordered. Patient was educated about heart failure diagnosis. Patient was scheduled to follow-up with cardiology on July 09, 2022. He will need further optimization of his heart failure medications upon follow-up with cardiology. He will need to have repeat echocardiogram as an outpatient as per cardiology recommendation and he might need further work-up for his nonischemic cardiomyopathy including cardiac MRI. Patient is being discharged home in stable condition on July 04, 2022. Dear Dr. Fernando MD, Kristy is advised to follow up with you within 1-2 weeks. Follow-up with: Cardiology and CHF clinic Scheduled appointments: Future Appointments Date Time Provider Department Center 07/09/2022 2:00 PM Bobby Ross NP [facility]. Your medication list START taking these medications Instructions Last Dose Given Next Dose Due metoprolol succinate XL 50 mg 24 hr tablet Commonly known as: Toprol-XL Start taking on: July 05, 2022 Take 1 tablet (50 mg) by mouth in the morning for 97 doses. Do not crush or chew. Do not start before July 05, 2022. sacubitriL-valsartan 24-26 mg tablet Commonly known as: Entresto Take 1 tablet by mouth in the morning and at bedtime for 195 doses. CONTINUE taking these medications Instructions Last Dose Given Next Dose Due albuterol 90 mcg/actuation inhaler fluticasone 50 mcg/actuation nasal spray Commonly known as: Flonase fluticasone propion-salmeteroL 250-50 mcg/dose diskus inhaler Commonly known as: Advair Diskus Where to Get Your Medications These medications were sent to [facility] [place] [facility] - [place], [place] - [address] [place] [address] [place] [address], [facility] [address] metoprolol succinate XL 50 mg 24 hr tablet sacubitriL-valsartan 24-26 mg tablet Kristy has No Known Allergies. Disposition: Home or Self Care Discharge Condition: Stable Code Status: Full Code Diagnostic Results Hematology: Results from last 7 days Lab Units 07/04/22 0509 07/02/22 2219 WBC AUTO 10*3/uL 7.75 7.44 HEMOGLOBIN g/dL 13.6 13.6 HEMATOCRIT % 39.4 40.2 MCV fL 94.0 94.4 PLATELETS AUTO 10*3/uL 160 177 INR -- 1.23* Chemistry: Results from last 7 days Lab Units 07/04/22 0806 07/04/22 0509 07/02/22 2219 SODIUM mmol/L -- 136 136 POTASSIUM mmol/L -- 3.6 3.8 CHLORIDE mmol/L -- 10 (more content not included)... [facility] [place] [facility] 07-03-2022 Note [facility] Medicine Daily Progress Note - 07/03/2022 1:46 PM; Room: [address] [place] [address] Admission: 07/02/2022 9:54 PM; Length of stay: 1 days THE HOSPITALIST TEAM PREFERS TO USE [employer] CHAT FOR COMMUNICATION 7AM-7PM. IF I DO NOT RESPOND WITHIN 15 MINUTES, PLEASE PAGE ME/CALL THROUGH THE PRINCIPAL CONSULTING ENGINEER. FROM 7PM-7AM, PLEASE PAGE [phone](COVR) Code Status: Full Code Discharge Destination: home Expected Discharge: 2-3 days Overview Patient is seen for evaluation and management of CHF. Subjective seen and examined, at the bedside. Patient had coronary angiogram this morning showing Mild coronary artery disease. he reports no shortness of breath, no chest pain, no lightheadedness. Physical Exam Visit Vitals BP (!) 138/97 Pulse 80 Temp 36.7 ???C (98 ???F) (Temporal) Resp 21 Intake/Output Summary (Last 24 hours) at 07/03/2022 1346 Last data filed at 07/03/2022 1200 Gross per 24 hour Intake 480 ml Output 10 ml Net 470 ml Physical Exam Eyes: Pupils: Pupils are equal, round, and reactive to light. Cardiovascular: Rate and Rhythm: Normal rate and regular rhythm. Pulmonary: Effort: Pulmonary effort is normal. Breath sounds: Normal breath sounds. Abdominal: General: Bowel sounds are normal. Palpations: Abdomen is soft. Genitourinary: Penis: Normal. Musculoskeletal: Right lower leg: No edema. Left lower leg: No edema. Skin: Capillary Refill: Capillary refill takes less than 2 seconds. Neurological: Mental Status: He is alert. Estimated body mass index is 27.02 kg/m??? as calculated from the following: Height as of this encounter: 1.727 m (5' 8 ). Weight as of this encounter: 80.6 kg (177 lb 11.1 oz). Active Inpatient Problems Principal Problem: New onset of congestive heart failure (CMS/HCC) Active Problems: Asthma History of malignant neoplasm of prostate Hypomagnesemia Hypertension Syncope and collapse Assessment and Plan # Nonischemic cardiomyopathy # systolic congestive heart failure with reduced ejection fraction, compensated. - Discussed with cardiology, further evaluation as per cardiology, possible cardiac MRI - he will need repeat echocardiogram to be done as an outpatient. - Patient started on GDMT as per cardiology. Started on metoprolol and Entresto. - He will need LifeVest prior to discharge. . # Presentation with syncope, likely related to arrhythmia. - Continue monitoring on telemetry. - Work-up at the outside facility included CT scan of the head which was reported to be negative for acute process. . # asthma, continue with bronchodilators. # Prostate cancer, history of prostatectomy. VTE Prophylaxis: Heparin subcutaneous Scheduled Meds fluticasone, 2 spray, Each Nostril, Daily fluticasone propion-salmeteroL, 2 puff, inhalation, BID metoprolol succinate XL, 50 mg, oral, Daily sacubitriL-valsartan, 1 tablet, oral, BID Pertinent Investigations Hematology: Results from last 7 days Lab Units 07/02/22 2219 WBC AUTO 10*3/uL 7.44 HEMOGLOBIN g/dL 13.6 HEMATOCRIT % 40.2 MCV fL 94.4 PLATELETS AUTO 10*3/uL 177 INR 1.23* Chemistry: Results from last 7 days Lab Units 07/02/22 2219 SODIUM mmol/L 136 POTASSIUM mmol/L 3.8 CHLORIDE mmol/L 99 CO2 mmol/L 29 BUN mg/dL 15 CREATININE mg/dL 1.06 GLUCOSE mg/dL 107* MAGNESIUM mg/dL 1.5* CALCIUM mg/dL 8.5* Results from last 7 days Lab Units 07/02/22 2219 AST U/L 46* ALT U/L 46 ALK PHOS U/L 52 BILIRUBIN TOTAL mg/dL 1.2* Historical Values: (Includes values prior to this admission) No results found for: PREALBUMIN, TSH, T3FREE, FREET4, CORTISOL, FEV1, ZMO4ILN, DLCO, RVSP, HDL, LDL No results found for: [id number], IRON, TIBC, C3, C4, COLLIN, CANCA, ASO, PSA, CEA, CA125, CA199, AFP, CA153 Imaging ECG 12 lead Sinus rhythm with frequent and consecutive Premature ventricular complexes Intra-ventricular conduction delay Nonspecific ST and T wave abnormality Abnormal ECG No previous ECGs available Cardiac catheterization Cardiovascular Laboratory Report FINAL IMPRESSIONS: Mild coronary artery disease Moderately reduced global left ventricular systolic function by noninvasive imaging RECOMMENDATIONS: Consider causes for nonischemic cardiomyopathy as clinically appropriate; further investigations as indicated Would repeat a limited echocardiogram with contrast to better delineate endocardial borders, evaluate ejection fraction and wall motion abnormalities Aggressive cardiovascular risk factor modification Optimal medical therapy for mild coronary artery disease should include aspirin, moderate to high intensity statin therapy, a beta-luis and an angiotensin-converting enzyme inhibitor/receptor luis or Entresto given reduced ejection fraction Should the ejection fraction be confirmed to be reduced by repeat limited echocardiogram, an SGLT2 inhibitor and spironolactone would be indicated Further recommenda (more content not included)... [facility] [place] [facility] 07-03-2022 Note Cardiovascular Labor atory Report FINAL IMPRESSIONS: Mild coronary artery disease Moderately reduced global left ventricular systolic function by noninvasive imaging RECOMMENDATIONS: Consider causes for nonischemic cardiomyopathy as clinically appropriate; further investigations as indicated Would repeat a limited echocardiogram with contrast to better delineate endocardial borders, evaluate ejection fraction and wall motion abnormalities Aggressive cardiovascular risk factor modification Optimal medical therapy for mild coronary artery disease should include aspirin, moderate to high intensity statin therapy, a beta-luis and an angiotensin-converting enzyme inhibitor/receptor luis or Entresto given reduced ejection fraction Should the ejection fraction be confirmed to be reduced by repeat limited echocardiogram, an SGLT2 inhibitor and spironolactone would be indicated Further recommendations deferred to the inpatient services PROCEDURES: Ultrasound-guided access to the left radial artery, bilateral selective coronary angiography via a left radial approach METHODS: After risks, benefits, and alternatives were explained, written informed consent was obtained. The patient was prepped and draped in usual sterile fashion over the left wrist. Local infiltration anesthesia was achieved of the left wrist. Using a micropuncture kit, access to the left radial artery was obtained. A 6 [place]uran glide sheath was inserted without difficulty. Bilateral selective coronary angiography was performed using JR 4.0 and JL 4.0 catheters. After reviewing the images, it was elected to conclude the procedure. The catheters were removed. The radial sheath was removed with application of a TR band per protocol to achieve optimal hemostasis. FINDINGS: Hemodynamics: 116/79 [96] LEFT VENTRICULOGRAPHY: This was not performed. Ejection fraction is 30-35% by echocardiography. CORONARY ARTERIES: Left main coronary artery: This arises from the left coronary cusp and bifurcates into the left anterior descending and left circumflex coronary arteries it is free of significant stenoses. Left anterior descending coronary artery: This is angiographically nonobstructive with minimal luminal irregularities. Left circumflex coronary artery: This is angiographically nonobstructive. Right coronary artery: This is a dominant vessel giving rise to the posterior descending and posterolateral branches, it shows ectasia throughout with sluggish flow in the mid to distal vessel. No significant stenoses are seen. INDICATIONS: Newly diagnosed heart failure with reduced ejection fraction [facility] [place] [facility] 07-03-2022 Note Patient: Kristy stewart Procedure Information Date/Time: 07/03/22920 Procedure: Coronary angiography (Bilateral) Location: [facility] [employer] [address] / [facility] (Cath) Providers: Krystina Mills MD Clinical information reviewed: Tobacco Allergies Med Hx Surg Hx Fam Hx Soc Hx Physical Exam Airway Mallampati: III Cardiovascular - normal exam Dental - normal exam Pulmonary - normal exam Abdominal - normal exam Anesthesia Plan ASA 2 CSE Anesthetic plan and risks discussed with patient. Use of blood products discussed with patient who. Additional Equipment Requests [facility] [place] [facility] 07-03-2022 Note Hospital Medicine History and Physical 07/03/2022 12:32 AM THE HOSPITALIST TEAM PREFERS TO USE [employer] CHAT FOR COMMUNICATION 7AM-7PM. IF I DO NOT RESPOND WITHIN 15 MINUTES, PLEASE PAGE ME/CALL THROUGH THE PRINCIPAL CONSULTING ENGINEER. FROM 7PM-7AM, PLEASE PAGE [phone](COVR) Chief Complaint Direct admission from [facility] for new onset chf History of Present Illness Kristy Doherty is an 66 y.o. male with Past medical history of asthma, hypertension, prostate cancer s/p prostatectomy presents to [facility] [place] [facility] as a direct admission from [facility] with new onset CHF. Per report, patient originally presents to [facility] on 07/01/22 with syncope and collapse. 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 He denies any prodromal symptoms. He states when he awoke he was aware of his surroundings and began to have continuous vomiting. He does endorse a head injury and does have a bump on the back of his head. Upon arrival to [place], CT head was completed which shows no acute intracranial abnormality. Labs were completed which showed WBC 6.4, RBC 4.19, hemoglobin 13.5, hematocrit 38, sodium 134, potassium 2.5, chloride 94, BUN 12, creatinine 1.03, calcium 8.8. Potassium replacement was provided. Carotid Dopplers were completed showing 0 to 49% flow stenosis bilateral internal carotid arteries. Echocardiogram was then completed on 07/02/2022 showing EF of 25 to 30% with global hypokinesis. Cardiology at [facility] was contacted and they accepted patient for heart cath on 07/03/2022. Upon arrival to [facility], patient was found of a blood pressure of 130/100, heart rate 90, 94% on room air. Labs are completed showing BNP 632, magnesium 1.5, troponin 0.04 EKG was completed showing sinus rhythm with frequent and consecutive premature ventricular complexes as well as ST and T wave abnormality. Patient states he does have shortness of breath at times, but is always attributed this to his asthma. He also endorses some bouts of diarrhea over the past 24 hours. Denies any chest pain or shortness of breath at this time. He states that he no longer has a headache. Review of System and Physical Exam Heart Rate: [90] 90 Resp: [24] 24 BP: (130)/(100) 130/100 Physical Exam Vitals reviewed. Constitutional: Appearance: He is normal weight. HENT: Head: Normocephalic and atraumatic. Nose: Nose normal. Mouth/Throat: Mouth: Mucous membranes are moist. Pharynx: Oropharynx is clear. Eyes: Conjunctiva/sclera: Conjunctivae normal. Pupils: Pupils are equal, round, and reactive to light. Cardiovascular: Rate and Rhythm: Normal rate and regular rhythm. Pulses: Normal pulses. Heart sounds: Normal heart sounds. Pulmonary: Effort: Pulmonary effort is normal. Breath sounds: Normal breath sounds. Abdominal: General: Abdomen is flat. Bowel sounds are normal. Musculoskeletal: General: Normal range of motion. Cervical back: Normal range of motion and neck supple. Skin: General: Skin is warm and dry. Capillary Refill: Capillary refill takes less than 2 seconds. Neurological: General: No focal deficit present. Mental Status: He is alert and oriented to person, place, and time. Mental status is at baseline. Psychiatric: Mood and Affect: Mood normal. Behavior: Behavior normal. Thought Content: Thought content normal. Judgment: Judgment normal. Review of Systems Constitutional: Negative for chills, diaphoresis, fatigue and fever. HENT: Negative for congestion. Eyes: Negative for discharge. Respiratory: Negative for chest tightness and shortness of breath. Cardiovascular: Negative for chest pain and palpitations. Gastrointestinal: Positive for diarrhea. Negative for abdominal distention, abdominal pain, constipation, nausea and vomiting. Genitourinary: Negative for difficulty urinating and dysuria. Musculoskeletal: Negative for arthralgias and back pain. Skin: Negative for color change, pallor, rash and wound. Neurological: Negative for dizziness, seizures, syncope, facial asymmetry, speech difficulty, light-headedness and headaches. Psychiatric/Behavioral: Negative for agitation, behavioral problems, confusion and decreased concentration. All other systems reviewed and are negative. Problem List Patient Active Problem List Diagnosis Date Noted History of malignant neoplasm of prostate 07/03/2022 Hypomagnesemia 07/03/2022 Hypertension 07/03/2022 New onset of congestive heart failure (CMS/HCC) 07/02/2022 Asthma 07/29/2012 Assessment and Plan Kristy Doherty is an 66 y.o. male with Past medical history of asthma, hypertension, prostate cancer s/p prostatectomy presents to [facility] as a direct admission from [facility] with new onset CHF. #New onset CHF -Echocardiogram completed showing EF of 25 to 30% -Strict intake and output and daily weights (more content not included)... [facility] 01-28-2022 Note OPERATIVE NOTE OPERATION DATE: 01/28/2022 PREOPERATIVE DIAGNOSIS: Colorectal screening. POSTOPERATIVE DIAGNOSIS: Redundant colon. PROCEDURE: Colonoscopy to ascending colon. SURGEON: Ravi Geronimo M.D. ANESTHESIA: Monitored anesthesia care/general. ESTIMATED BLOOD LOSS: Zero. INDICATIONS AND CONSENT: Patient is a 66-year-old male who presents for colorectal screening. Indications, risks, benefits, alternatives of proceeding with colonoscopy were explained extensively to the patient, including the risks of bleeding, colon perforation or anesthetic complications. All of his questions were answered. Informed consent was obtained. PROCEDURE: Patient brought to the operating room, placed in the left lateral decubitus position. Monitored anesthesia care was provided. Rectal exam was performed which showed no masses or blood. The scope was inserted into the anal canal. Under direct visualization was advanced. With the aid of abdominal compression and positional changes, it was advanced to the ascending colon, just past the hepatic flexure. Due to redundancy and paradoxical motion, it was unable to be advanced into the cecal bulb. There was a fair prep with some cloudy, liquid stool throughout the colon that was partially irrigated clear. Upon withdrawal of the scope, mucosal surfaces were carefully examined. There were no mass lesions or polyps. No inflammatory changes or ulcerations. No significant diverticulosis. The scope was retroflexed in the anal canal. There were noted to be some prominent rectal veins. No evidence of bleeding or significant hemorrhoidal disease. The scope was then withdrawn. Patient tolerated procedure well. Patient will be sent for CT enterography to evaluate the remaining ascending colon and cecal bulb. If this is normal follow up colonoscopy should be in 10 years. CC: Rudy King M.D. [facility] Signed and Approved by: DR RAVI GERONIMO . 01/30/2022 12:35:00 [facility] 01-07-2022 Note Chief Complaint consultation for screening colonoscopy HPI Staff 66 year old male presents on consultation from Dr. King for screening colonoscopy. Denies abdominal or rectal pain. No rectal bleeding or change in bowel habits. Denies nausea or vomiting. No unexplained weight loss. Last colonoscopy completed 2007 with internal hemorrhoids. No known family history of colon cancer. History of Present Illness 66 male with h/o asthma, htn, referred for colorectal screening; denies change in bms or blood in stools, no abdominal complaints; last colonoscopy 2007, with internal hemorrhoids; abdominal operations significant for robotic prostatectomy; denies asa or NSAID use; no SBE prophylaxis; no fmhx of GI malignancy or IBD; no tobacco use. Review of Systems PHQ Score Initial Depression Screen Score: 0 ROS - Provider Constitutional: no fever, no sweats, no weight loss. Eyes: no glasses, no blurred vision, no visual loss. ENMT: no dentures, no hoarseness, no swallowing difficulties, no hearing loss, no ear infection(s), no nose bleeds. Cardiovascular: normal blood pressure, no chest pain, regular heartbeat, no heart murmur. Respiratory: no shortness of breath, no cough, no asthma, no wheezing. Gastrointestinal: no nausea, no vomiting, no diarrhea, no constipation, no blood in stool, no change in bowel habits, no abdominal pain, no hepatitis. Genitourinary: no kidney stones, no urine infection, no dysuria. Musculoskeletal: no pain, no weakness. Skin: no changing moles, no rash, no skin lumps. Neurologic: no seizures, no epilepsy, no headache. Psychiatric: no emotional or psychiatric problem. Heme/Lymph: no bleeding problems, no anemia, no blood clots, no transfusions. Allergy/Immunologic: no swollen lymph nodes/glands, no IV drug abuse. Other: Additional ROS info: Except as noted in the above Review of Systems and in the History of Present Illness, all other systems have been reviewed and are negative or noncontributory. Physical Exam Vitals & Measurements HR: 80(Peripheral) RR: 16 BP: 142/96 HT: 172.7 cm HT: 172.72 cm WT: 90.2 kg WT: 90.2 kg BMI: 30.24 HEENT: normal conjunctiva, sclera clear, no scleral icterus, EOM intact, PERRLA, oral mucosa moist without lesions. Neck: trachea midline, no mass, symmetric, no thyromegaly or nodules, no adenopathy Respiratory: lungs CTA, respirations non labored. Cardiovascular: regular rate and rhythm, no murmur, no pedal edema or varicosities. Gastrointestinal: soft, non distended, no tenderness, no masses, no palpable hernias, diastasis recti no, no hepatosplenomegaly; normal bs Lymphatic: no cervical adenopathy, Musculoskeletal: normal gait, digits and nails without infection, nodes, cyanosis, clubbing. Skin: no rashes, no lesions, no ulcers, no subcutaneous nodules, induration. Psychiatric/Neuro: oriented to time, place, person, judgement normal, affect appropriate for age, insight intact, no focal deficits. Tests: , review of old records completed, Discussed surgical options, risks, and possible complications with patient. Assessment/Plan 1. Screening for colorectal cancer (Z12.11: Encounter for screening for malignant neoplasm of colon) plan colonoscopy under anesthesia, informed consent obtained. Encounter for screening for malignant neoplasm of rectum (Z12.12: Encounter for screening for malignant neoplasm of rectum) Follow-up No qualifying data available Problem List/Past Medical History Ongoing Asthma BMI 30.0-30.9,adult Depression Dyslipidemia Fatty liver History of prostate cancer Obesity Prediabetes Renal cyst, right Screening for colorectal cancer Seasonal allergic rhinitis Vitamin D deficiency Historical No qualifying data Procedure/Surgical History Colonoscopy (01/25/2008), Biopsy of prostate, History of nasal sinus surgery, Prostatectomy. Medications Advair 500 mcg-50 mcg Powder, 1 inh, Inhalation, BID albuterol HFA 90 mcg/inh MDI, 2 puff(s), Inhalation, q4hr, PRN Flonase 0.05 mg/inh nasal spray, 2 spray(s), Nasal, Daily hydrochlorothiazide 25 mg oral tablet, 25 mg= 1 tab(s), Oral, Daily Allergies No Known Allergies No Known Medication Allergies Social History Alcohol Current, Beer, Liquor, Daily, 01/07/2022 Substance Abuse - Denies Substance Abuse, 01/07/2022 Tobacco Former smoker, quit more than 30 days ago Tobacco Use:. Never Smokeless Tobacco Use:. Cigarettes, Started age 18.0 Years. Stopped age 21 Years., 01/07/2022 Family History COPD: Father. Heart disease: Mother. Hypertension: Mother. Primary malignant neoplasm of lung: Brother. Primary malignant neoplasm of prostate: Brother. [facility] Comment on above: Result Comment: Elec tronically Signed By: ANGELICA KLEIN, Ravi Chambers\Date and Time Signed: 01/07/22 16:19 EDT Summary Purpose Family History No Family History Records FoundNo Family History Records FoundNo Family History Records FoundNo Family History Records FoundNo Family History Records Found Advance Directives No Advanced Directives Records FoundNo Advanced Directives Records FoundNo Advanced Directives Records FoundNo Advanced Directives Records FoundNo Advanced Directives Records Found Additional Source Comments (unrecognized sect ion and content) No Status Records FoundNo Status Records FoundNo Status Records FoundNo Status Records FoundNo Status Records Found INFORMATION SOURCE (unrecogn ized section and content) DATE CREATED AUTHOR 02/04/2022 Jm Cates [facility] DATE CREATED AUTHOR AUTHOR'S ORGANIZ ATION 11/27/2022 [facility] DATE CREATED AUTHOR AUTHOR'S ORGANIZ ATION 12/25/2022 [facility] DATE CREATED AUTHOR AUTHOR'S ORGANIZ ATION 07/01/2023 [facility] DATE CREATED AUTHOR AUTHOR'S ORGANIZ ATION 07/24/2023 [facility] FOR RECORDS PERTAINING TO PATIENTS WHO ARE OR HAVE BEEN ENROLLED IN A CHEMICAL DEPENDENCY/SUBSTANCEABUSE PROGRAM, SOME INFORMATION MAY BE OMITTED. This clinical summary was aggregated from multiple sources. Caution should be exercised in using it in the provision of clinical care. This summary normalizes information from multiple sources, and as a consequence, information in this document may materially change the coding, format and clinical context of patient data. In addition, data may be omitted in some cases. CLINICAL DECISIONS SHOULD BE BASED ON THE PRIMARY CLINICAL RECORDS. [facility] [employer] provides no warranty or guarantee of the accuracy or completeness of information in this document.
[2023-07-29 11:59] LABS: Anion Gap 12.2; BUN Creatinine Ratio 13.9; Calcium 9.7 mg/dL (8.5-10.1); Chloride 102 mmol/L (98-107); Estimated GFR (African America >60 (>=60); Estimated GFR (Non-African Ame >60 (>=60); Glucose 116 mg/dL (74-106); Potassium 4.2 mmol/L (3.5-5.1); Sodium 139 mmol/L (136-145)
== END 2023-07-29 10:35 | disposition home or self-care (01) ==
LOC: LAB 10:35
PROVIDERS: PCP Family Medicine; Visit Provider Internal Medicine Interventional Cardiology
DX: I50.22 Chronic systolic (congestive) heart failure (principal)
CPT/HCPCS: 36415; 80048

== ENCOUNTER 2023-12-14 09:54 | Outpatient (OUT) | payer MEDICARE, SELFPAY ==
--- NOTE | 2023-12-14 10:00 | CA_ITS ---
Patient Name: KRISTY VAZQUEZ MR#: [id number] : 1955 Exam Date: 12/14/2023 Ordering Doctor: DR BORIS WILLIAM M.D. ECHOCARDIOGRAM REPORT PROCEDURE: CA ECHO DOPPLER COMPLETE INDICATIONS: Heart failure with reduced ejection fraction, AICD COMPARISON: None. DESCRIPTION: COMPLETE ECHOCARDIOGRAM Real-time transthoracic echocardiography with 2D, M-mode, spectral and color flow Doppler performed. QUALITY: Technical quality was good. 68 , 185#, BP 98/62 LEFT VENTRICLE: Mild eccentric hypertrophy. Systolic function is mildly to moderately reduced. There is global hypokinesis. LV EF: Estimated left ventricular ejection fraction is 40%. DIASTOLIC: Grade 1 diastolic dysfunction. ATRIAL SEPTUM: Visually appears intact. LEFT ATRIUM: Normal chamber size. RIGHT ATRIUM: Normal chamber size. RIGHT VENTRICLE: Normal chamber size. Normal systolic function. Pacer wire present. TRICUSPID VALVE: Normal mobility and thickness. No stenosis with mild regurgitation. No evidence of pulmonary hypertension. RVSP 25 mmHg MITRAL VALVE: Normal mobility and thickness. No evidence of mitral valve stenosis. There is no mitral annular calcification. Mild mitral regurgitation. AORTIC VALVE: Normal trileaflet appearance. No visible sclerosis. Normal leaflet mobility. No evidence of aortic valve stenosis. Mild to moderate aortic regurgitation. AORTIC ROOT: The aortic root is mildly dilated, measuring 3.8 cm. Ascending aorta is normal in size, measuring 3.4 cm. PULMONIC VALVE: Normal thickness and mobility. No stenosis. Trivial regurgitation. PERICARDIUM: No evidence of pericardial effusion. IVC: Collapses with inspirations. IVC is normal in size. PLEURA: CONCLUSION: 1. The left ventricle exhibits mild eccentric hypertrophy with mildly to moderately reduced systolic function. Estimated ejection fraction is 40%. 2. Normal right ventricular size and systolic function. 3. Mild mitral and tricuspid regurgitation. 4. Mild to moderate aortic regurgitation. 5. Normal right-sided pressures. Adult Echocardiography Procedure Report Left Ventricle LVEDD (3.7 - 5.6 cm): 5.70 cm LVESD (2.2 - 4.0 cm): 4.64 cm LVIVS thickness (0.6 - 1.2 cm): 0.90 cm LVPW thickness (0.5 - 1.0 cm): 1.09 cm e': 0.06 m/s E - e': 5.68 LVOT Max Gradient: 1.73 mm[Hg] LVOT Area (cm2): 0.66 m/s Peak Velocity (LVOT): 0.66 m/s Mean Velocity (LVOT): 0.42 m/s LVOT Diameter 2.66 cm Left Atrium LA Volume Index (2D A2C): 29.06 ml/m2 Left Atrium Systolic Dimension: 4.29 cm Mitral Valve MV E to A Ratio: 0.50 Mitral Valve A-Wave Peak Velocity: 0.71 m/s Mitral Valve E-Wave Peak Velocity: 0.36 m/s Right Ventricle Aorta AO Root Diam: 3.77 cm Ascending Ao Diam: 3.40 cm Aortic Valve AoV Area (Peak Stanley): 2.81 cm2, 2.81 cm2 AoV Area (VTI): 2.64 cm2, 2.64 cm2 Peak Velocity(Antegrade Flow): 1.31 m/s Peak Gradient(Antegrade Flow): 6.82 mm[Hg] Mean Velocity(Antegrade Flow): 0.91 m/s Mean Gradient(Antegrade Flow): 3.81 mm[Hg] Velocity Time Integral: 30.09 cm Tricuspid Valve Peak Velocity (Regurgitant Flow): 2.35 m/s Pulmonic Valve Peak Gradient: 7.23 mm[Hg], 6.30 mm[Hg] Right Atrium Right Atrium Systolic Pressure: 37.68 ml, 37.68 ml Dictated by: Boris William M.D. on 12/14/2023 at 19:04 Approved by: Boris William M.D. on 12/14/2023 at 19:11
--- OUTSIDE RECORDS SUMMARY | 2023-12-14 10:14 | XMS_ITS | CCD ---
Author Organization [facility]iniSypr Care Team Providers Care Chef'S Assistant Name Role Phone JUDY, DR ESCALANTE Attending [...] Unavailable NILL ., DR RODRIGUES Consulting Unavailable DORKOSKIE, ROGELIO Consulting Unavailable MCCORNACKBRIAN Consulting Unavailable NADERER, DR RUDY Simpson Primary Care Unavailable ZIEBER, DR BRIAN Bernstein Consulting Unavailable JASONKAE VICKERS Attending Unavailable JASONKAE VICKERS Admitting Unavailable JASONKAE VICKERS Consulting Unavailable BOBO RAYMOND Attending Unavailable BOBO RAYMOND Admitting Unavailable ASIF COLVIN Consulting Unavailable NADERER, DR RUDY Simpson Primary Care Unavailable BOBO RAYMOND Consulting Unavailable MOUKARBEL, DR ESCALANTE Consulting Unavailable MOUKARBEL, DR ESCALANTE Attending Unavailable MOUKARBEL, DR ESCALANTE Admitting Unavailable NADERER, DR RUDY Simpson Primary Care Unavailable AICHHOLZ, DANCE DIRECTOR APOORVA Admitting Unavailable AICHHOLZ, DANCE DIRECTOR APOORVA Consulting Unavailable AICHHOLZ, DANCE DIRECTOR APOORVA Attending Unavailable NADERER, DR RUDY Simpson Primary Care Unavailable BONNIE RODRIGUES Consulting Unavailable NADERER, DR RUDY Simpson Primary Care Unavailable BARAZI, MILDRED Admitting Unavailable MILDRED LOGAN Consulting Unavailable MILDRED LOGAN Attending Unavailable DR RUDY KING Primary Care Unavailable ONARGA, DR ASIF Davila Consulting Unavailable FAWFAMILIA, H Attending Unavailable FAWFAMILIA, H Admitting Unavailable FAWFAMILIA, H Consulting Unavailable Halzafar, Kristy Attending Unavailable Haladay, Kristy Admitting Unavailable FERNANDO, RUDY Attending Unavailable GABRIEL, BOBO Referring Unavailable MOUKARBEL, BORIS Attending Unavailable GABRIEL, BOBO Attending Unavailable GABRIEL, BOBO Referring Unavailable GABRIEL, BOBO Referring Unavailable GABRIEL, BOBO Referring Unavailable CHITRA, CUBA Attending Unavailable Problems Active Problems Problem Classification Problem Date Documented Date Episodic/Chronic Asthma (2 sources) Mild persistent asthma, uncomplicated; Translations: [Unspecified asthma, uncomplicated] Onset: 01-30-2022 Chronic Cardiac dysrhythmias (2 sources) Paroxysmal atrial fibrillation; Translations: [Paroxysmal atrial fibrillation] Onset: 06-29-2023 Chronic Cardiac dysrhythmias (2 sources) Palpitations; Translations: [Palpitations] Onset: 10-13-2023 Episodic Conduction disorders (6 sources) Presence of automatic (implantable) cardiac defibrillator; Translations: [PRESENCE AUTO IMPLANT CARDIAC DEFIB] Onset: 09-05-2022 Chronic Congestive heart failure; nonhypertensive (8 sources) Chronic systolic (congestive) heart failure; Translations: [Acute on chronic systolic (congestive) heart failure] Onset: 07-09-2022 Chronic Coronary atherosclerosis and other heart disease (2 sources) Atherosclerotic heart disease of [place] coronary artery without angina pectoris; Translations: [Atherosclerotic heart disease of [place] coronary artery without angina pectoris] Onset: 07-07-2022 Chronic Digestive congenital anomalies (1 source) Other specified congenital malformations of intestine; Translations: [OTH SPEC CONGEN MALFORM INTESTINE] Onset: 01-30-2022 Chronic Disorders of lipid metabolism (4 sources) Mixed hyperlipidemia; Translations: [Hyperlipidemia, unspecified] Onset: 01-30-2022 Chronic Essential hypertension (2 sources) Essential (primary) hypertension; Translations: [Essential (primary) hypertension] Onset: 07-03-2022 Chronic Headache; including migraine (3 [...] tuberculosis or sexually transmitted disease) (4 sources) Cardiomyopathy, unspecified; Translations: [Other cardiomyopathies] Onset: 09-01-2022 Chronic Rheumatoid arthritis and related [...] 07-09-2022 Episodic Other aftercare (1 source) Other roasterman (current) drug therapy; Translations: [OTH FOOD SERVICE LEAD CURRENT DRUG THERAPY] Onset: 07-09-2022 Episodic Other [...] OF NICOTINE DEPEND] Onset: 07-09-2022 Episodic Syncope (1 source) Syncope and collapse; Translations: [SYNCOPE AND COLLAPSE] Onset: 07-09-2022 Episodic Results Test Name Value Interpretation Reference Range Facility Office Visiton 06-29-2023 Follow-up visit [id number] Dominik Doherty ert 1955 M Date Provider Department Center 06/29/2023 BORIS COONEY ALON [facility] Family History Problem Relation Age of Onset Other Mother Family Status - Relation Status Age at Mother Level of Service:44114 SD OFFICE/OUTPATIENT ESTABLISHED MOD MDM 30-39 MIN Normal [facility] Office Visiton 05-11-2023 Follow-up visit [id number] Dominik Doherty ert 1955 M Date Provider Department Center 05/11/2023 BOBO GRIER ALON Goldberg Family History Problem Relation Age of Onset Other Mother Family Status - Relation Status Age at Mother Level of Service:80005 SD OFFICE/OUTPATIENT ESTABLISHED MOD MDM 30-39 MIN Normal [facility] 37on 02-19-2023 37 Increase entresto to higher dose 49-51 mg tablet twice daily Please have blood drawn next week to check kidney function and electrolytes. Continue cardiac rehab Monitor daily weights, low sodium/heart healthy diet, fluid restriction 1.5-2L/day Normal [facility] Office Visiton 02-19-2023 Follow-up visit [id number] Dominik Doherty ert 1955 M Date Provider Department Center 02/19/2023 CUBA RAY [facility] Family History Problem Relation Age of Onset Other Mother Family Status - Relation Status Age at Mother Level of Service:12582 SD OFFICE/OUTPATIENT ESTABLISHED MOD MDM 30-39 MIN Normal [facility] COLLIN Antinuclear Antibodieson 12-03-2022 Antinuclear Abs, IFA Positive Critically abnormal . [facility] Comment on above: Result Comment: Nega tive <1:80 Borderline 1:80 Positive >1:80 Performed By: #### A NA #### [facility] , #### PTH, CRP, CBC, ESR, URIC, CMP #### [facility] [address] [place] [address] [place] Homogeneous Pattern 1:80 Normal . [facility] Comment on above: Result Comment: ICAP nomenclature: AC-1 Performed By: #### A NA #### [facility] , #### PTH, CRP, CBC, ESR, URIC, CMP #### [facility] [address] Note 1 Normal . [facility] Comment on above: Result Comment: For more [...] titers Nucleosomes, Histones Drug-induced SLE Speckled Sm, REGIONAL TRAINER, SCL-70, SLE,MCTD,PSS (diffuse form), SS-A/SS-B Sjogrens Nucleolar SCL-70, PM-1/SCL High titers Scleroderma, PM/DM Centromere Centromere PSS (limited form) w/Crest syndrome variable Nuclear Dot [id number] Primary Biliary Cirrhosis Nuclear GP210, Primary Biliary Cirrhosis Membrane flor A,B,C Performed at: [facility] [address] [id number] [place] Orientator: John Acosta PhD, Phone: [phone] PERFORMED BY: [place] [address] PATHOLOGIST REFLEXOLOGIST ROMULO SERRA M.D. Performed By: #### A NA #### [facility] , #### PTH, CRP, CBC, ESR, URIC, CMP #### [address] C-Reactive Proteinon 023 C-Reactive Protein 0.6 mg/dL High 0.0-0.5 [facility] Comment on above: Result Comment: PERF ORMED BY: [place] [address] PATHOLOGIST REFLEXOLOGIST ROMULO SERRA M.D. Performed By: #### A NA #### [facility] , #### PTH, CRP, CBC, ESR, URIC, CMP #### [facility] [address] [place] [address] Complete Blood Count Auto Di ffon 12-03-2022 Basophils (Bld) [#/Vol] 0.1 10*3/uL Normal 0.0-0.2 [facility] Comment on above: Performed By: #### A NA #### [facility] , #### PTH, CRP, CBC, ESR, URIC, CMP #### [address] Basophils/100 WBC (Bld) 1.1 % Normal . [facility] Comment on above: Performed By: #### A NA #### [facility] , #### PTH, CRP, CBC, ESR, URIC, CMP #### [address] Eosinophils (Bld) [#/Vol] 0.3 10*3/uL Normal 0.0-0.45 [facility] Comment on above: Performed By: #### A NA #### [facility] , #### PTH, CRP, CBC, ESR, URIC, CMP #### [address] Eosinophils/100 WBC (Bld) 4.2 % Normal . [facility] Comment on above: Performed By: #### A NA #### [facility] , #### PTH, CRP, CBC, ESR, URIC, CMP #### [address] Erythrocyte distribution width (RBC) [Ratio] 16.3 % High 12.0-14.8 [facility] Comment on above: Performed By: #### A NA #### [facility] , #### PTH, CRP, CBC, ESR, URIC, CMP #### [address] Hematocrit (Bld) [Volume fraction] 40.2 % Normal 38.8-50.0 [facility] Comment on above: Performed By: #### A NA #### [facility] , #### PTH, CRP, CBC, ESR, URIC, CMP #### [address] Hemoglobin (Bld) [Mass/Vol] 13.3 g/dL Normal 13.0-17.0 [facility] Comment on above: Performed By: #### A NA #### [facility] , #### PTH, CRP, CBC, ESR, URIC, CMP #### [address] Lymphocytes (Bld) [#/Vol] 2.5 10*3/uL Normal 1.00-4.8 [facility] Comment on above: Performed By: #### A NA #### [facility] , #### PTH, CRP, CBC, ESR, URIC, CMP #### [address] Lymphocytes/100 WBC (Bld) 31.3 % Normal . [facility] Comment on above: Performed By: #### A NA #### [facility] , #### PTH, CRP, CBC, ESR, URIC, CMP #### [address] MCH (RBC) [Entitic mass] 29.4 pg Normal 27.5-35.2 [facility] Comment on above: Performed By: #### A NA #### [facility] , #### PTH, CRP, CBC, ESR, URIC, CMP #### [address] MCV (RBC) [Entitic vol] 88.7 fL Normal 83.5-101 [facility] Comment on above: Performed By: #### A NA #### [facility] , #### PTH, CRP, CBC, ESR, URIC, CMP #### [address] Mean Corpuscular HGB Conc 33.1 g/dL Normal 32.5-35.6 [facility] Comment on above: Performed By: #### A NA #### [facility] , #### PTH, CRP, CBC, ESR, URIC, CMP #### [address] Monocytes (Bld) [#/Vol] 1.0 10*3/uL High 0.0-0.8 [facility] Comment on above: Performed By: #### A NA #### [facility] , #### PTH, CRP, CBC, ESR, URIC, CMP #### [address] Monocytes/100 WBC (Bld) 12.9 % Normal . [facility] Comment on above: Performed By: #### A NA #### [facility] , #### PTH, CRP, CBC, ESR, URIC, CMP #### [facility] [address] [place] [address] Neutrophils (Bld) [#/Vol] 4.1 10*3/uL Normal 1.8-7.7 [facility] Comment on above: Performed By: #### A NA #### [facility] , #### PTH, CRP, CBC, ESR, URIC, CMP #### [address] Neutrophils/100 WBC (Bld) 50.5 % Normal . [facility] Comment on above: Performed By: #### A NA #### [facility] , #### PTH, CRP, CBC, ESR, URIC, CMP #### [address] NRBC% 0.0 /100{WBC} Normal 0-0.5 [facility] Comment on above: Performed By: #### A NA #### [facility] , #### PTH, CRP, CBC, ESR, URIC, CMP #### [address] Platelet mean volume (Bld) [Entitic vol] 8.7 fL Normal 6.6-10.1 [facility] Comment on above: Performed By: #### A NA #### [facility] , #### PTH, CRP, CBC, ESR, URIC, CMP #### [address] Platelets (Bld) [#/Vol] 285 10*3/uL Normal 150-450 [facility] Comment on above: Performed By: #### A NA #### [facility] , #### PTH, CRP, CBC, ESR, URIC, CMP #### [address] RBC (Bld) [#/Vol] 4.53 10*6/uL Normal 3.90-5.60 [facility] Comment on above: Performed By: #### A NA #### [facility] , #### PTH, CRP, CBC, ESR, URIC, CMP #### [facility] [address] [place] [address] WBC (Bld) [#/Vol] 8.0 10*3/uL Normal 4.1-10.5 [facility] Comment on above: Performed By: #### A NA #### [facility] , #### PTH, CRP, CBC, ESR, URIC, CMP #### [address] Comprehensive Metabolic Pane [facility] 12-03-2022 Albumin [Mass/Vol] 4.2 g/dL Normal 3.5-5.7 [facility] Comment on above: Performed By: #### A NA #### [facility] , #### PTH, CRP, CBC, ESR, URIC, CMP #### [address] Albumin/Globulin [Mass ratio] 1.3 {ratio} Normal [facility] Comment on above: Performed By: #### A NA #### [facility] , #### PTH, CRP, CBC, ESR, URIC, CMP #### [facility] [address] [place] [address] ALP [Catalytic activity/Vol] 69 U/L Normal 34-104 [facility] Comment on above: Performed By: #### A NA #### [facility] , #### PTH, CRP, CBC, ESR, URIC, CMP #### [facility] [address] [place] [address] ALT [Catalytic activity/Vol] 15 U/L Normal 7-52 [facility] Comment on above: Performed By: #### A NA #### [facility] , #### PTH, CRP, CBC, ESR, URIC, CMP #### [facility] [address] Anion gap [Moles/Vol] 9.9 mmol/L Normal 6.0-15.0 [facility] Comment on above: Performed By: #### A NA #### [facility] , #### PTH, CRP, CBC, ESR, URIC, CMP #### [address] AST [Catalytic activity/Vol] 24 U/L Normal 13-39 [facility] Comment on above: Performed By: #### A NA #### [facility] , #### PTH, CRP, CBC, ESR, URIC, CMP #### [address] Bilirubin [Mass/Vol] 0.4 mg/dL Normal 0.3-1.[address] [facility] Comment on above: Performed By: #### A NA #### [facility] , #### PTH, CRP, CBC, ESR, URIC, CMP #### [facility] [address] [place] [address] Calcium [Mass/Vol] 9.6 mg/dL Normal 8.6-10.3 [facility] Comment on above: Performed By: #### A NA #### [facility] , #### PTH, CRP, CBC, ESR, URIC, CMP #### [facility] [address] [place] [address] Chloride [Moles/Vol] 103 mmol/L Normal 98-[address] [facility] Comment on above: Performed By: #### A NA #### [facility] , #### PTH, CRP, CBC, ESR, URIC, CMP #### [facility] [address] [place] [address] CO2 [Moles/Vol] 29.5 mmol/L Normal 21.0-31.0 [facility] Comment on above: Performed By: #### A NA #### [facility] , #### PTH, CRP, CBC, ESR, URIC, CMP #### [address] Creatinine [Mass/Vol] 1.06 mg/dL Normal 0.70-1.30 [facility] Comment on above: Performed By: #### A NA #### [facility] , #### PTH, CRP, CBC, ESR, URIC, CMP #### [address] GFR/1.73 sq M.predicted MDRD (S/P/Bld) [Vol rate/Area] mL/min/{1.73_m2} Normal [facility] Comment on above: Performed By: #### A NA #### [facility] , #### PTH, CRP, CBC, ESR, URIC, CMP #### [address] Globulin (S) [Mass/Vol] 3.2 g/dL Normal [facility] Comment on above: Performed By: #### A NA #### [facility] , #### PTH, CRP, CBC, ESR, URIC, CMP #### [address] Glucose [Mass/Vol] 81 mg/dL Normal 70-100 [facility] Comment on above: Result Comment: [place] Glucose Reference Range is dependent on time and content of last meal. Glucose of more than 200 mg/dL in a nonstressed, ambulatory subject supports the diagnosis of Diabetes Mellitus. ADA recommended reference range Performed By: #### A NA #### [facility] , #### PTH, CRP, CBC, ESR, URIC, CMP #### [address] Potassium [Moles/Vol] 4.4 mmol/L Normal 3.5-5.1 [facility] Comment on above: Performed By: #### A NA #### [facility] , #### PTH, CRP, CBC, ESR, URIC, CMP #### [address] Protein [Mass/Vol] 7.4 g/dL Normal 6.4-8.9 [facility] Comment on above: Performed By: #### A NA #### [facility] , #### PTH, CRP, CBC, ESR, URIC, CMP #### [address] Sodium [Moles/Vol] 138 mmol/L Normal 136-145 [facility] Comment on above: Performed By: #### A NA #### [facility] , #### PTH, CRP, CBC, ESR, URIC, CMP #### [address] Urea nitrogen [Mass/Vol] 19 mg/dL Normal 7-25 [facility] Comment on above: Performed By: #### A NA #### [facility] , #### PTH, CRP, CBC, ESR, URIC, CMP #### [address] Erythrocyte Sedimentation Ra nishant 12-03-2022 ESR (Bld) [Velocity] 43 mm/h High 0-[address] [facility] Comment on above: Result Comment: PERF ORMED BY: [place] [address] PATHOLOGIST REFLEXOLOGIST ROMULO SERRA M.D. Performed By: #### A NA #### [facility] , #### PTH, CRP, CBC, ESR, URIC, CMP #### [address] Parathyroid Hormone Intacton 12-03-2022 Parathyroid Hormone Intact 34.1 pg/mL Normal 12-88 [facility] Comment on above: Result Comment: PERF ORMED BY: [place] [address] PATHOLOGIST REFLEXOLOGIST ROMULO SERRA M.D. Performed By: #### A NA #### [facility] , #### PTH, CRP, CBC, ESR, URIC, CMP #### [facility] [address] [place], [place] [id number] [facility] Uric Acidon 12-03-2022 Urate [Mass/Vol] 3.5 mg/dL Normal 2.4-7.6 [facility] Comment on above: Performed By: #### A NA #### [facility] , #### PTH, CRP, CBC, ESR, URIC, CMP #### [facility] [address] [place] [address] XR foot LT 2Von 12-03-2022 XR foot LT 2V [facility] Main [place] [address] [place] [address] XRay Report Signed Patient: Kristy Doherty MR#: [id number] 81 : 1955 Acct:[id number] Age/Sex: 67 / M ADM Date: 12/03/22 Loc: XD Room: Type: [facility] Attending Dr: Kristy Beatty MD Copies to: [...] Bonnie Grewal M.D.12/03/2022 4:56 PM Dictation Location: [place] [address] Transcribed By: [facility] 12/03/22 6905 Dictated By: Bonnie Grewal II, MD 12/03/22 1655 Signed By: 12/03/22 165 [facility] XR hand BI 2Von 12-03-2022 XR hand BI 2V [facility] Main [address] [address] XRay Report Signed Patient: Kristy Doherty MR#: [id number] 81 : 1955 Acct:[id number] Age/Sex: 67 / M ADM Date: 12/03/22 Loc: ICXD Room: Type: REG CLI Attending Dr: Kristy Beatty MD Copies to: [...] Bonnie Grewal M.D.12/03/2022 5:29 PM Dictation Location: [place] [address] Transcribed By: [facility] 12/03/221728 Dictated By: Bonnie Grewal II, MD 12/03/221650 Signed By: 12/03/22 172 [facility] XR knee LT 2Von 12-03-2022 XR knee LT 2V [address] [address] XRay Report Signed Patient: Kristy Doherty MR#: [id number] 81 : 1955 Acct:[id number] Age/Sex: 67 / M ADM Date: 12/03/22 Loc: ICXD Room: Type: REG CLI Attending Dr: Kristy Beatty MD Copies to: [...] Bonnie Grewal M.D.12/03/2022 4:54 PM Dictation Location: [place] [address] Transcribed By: [facility] 12/03/221653 Dictated By: Bonnie Grewal II, MD 12/03/221652 Signed By: 12/03/221653 [facility] COLLIN by IFAon 11-04-2022 Antinuclear Antibodies, IFA Negative Normal [facility] Comment on above: Result Comment: Nega tive <1:80 Borderline 1:80 Positive >1:80 ICAP nomenclature: AC-0 For more information about Hep-2 cell patterns use ANApatterns.org, the official website for the International Consensus on Antinuclear Antibody (COLLIN) Patterns (ICAP). Performed By: #### C AILYN BMP #### [facility] [address] [place] [address] Dr. Skylar Chadwick ANTISTREPTOLYSIN O AB (ASO)o n 11-03-2022 Antistreptolysin O Ab 326.2 IU/mL Critically high 0.0-200.0 [facility] Comment on above: Performed By: #### A SOAB #### [facility] [address] [place] [address] Dr. Skylar Chadwick RHEUMATOID FACTORon 11-04-19 RA Latex Turbid. 14.3 IU/mL Critically high <14.0 [facility] Comment on above: Performed By: #### C AILYN, BMP #### [facility] [address] [place] [address] Dr. Skylar Chadwick CBC AUTO DIFFon 11-02-2022 BASO # 0.1 103/ul Normal 0.0-0.1 [facility] Comment on above: Performed By: #### C AILYN, BMP #### [facility] [address] [place] [address] Dr. Skylar Chadwick Basophils/100 WBC (Bld) 0.7 % Normal 0.2-2.0 [facility] Comment on above: Performed By: #### C CARLOS ENRIQUEM, BMP #### [facility] [address] [place] [address] Dr. Skylar Chadwick EO # 0.2 103/ul Normal 0.0-0.7 [facility] Comment on above: Performed By: #### C AILYN, BMP #### [facility] [address] [place] [address] Dr. Skylar Chadwick Eosinophils/100 WBC (Bld) 2.8 % Normal 0.9-7.0 [facility] Comment on above: Performed By: #### C AILYN, BMP #### [facility] [address] [place] [address] Dr. Sklyar Chadwick Erythrocyte distribution width (RBC) [Ratio] 15.1 % Critically high 11.0-15.0 [facility] Comment on above: Performed By: #### C AILYN, BMP #### [facility] [address] [place] [address] Dr. Skylar Chadwick Hematocrit (Bld) [Volume fraction] 37.2 % Critically low 42.0-54.0 [facility] Comment on above: Performed By: #### C AILYN, BMP #### [facility] [address] [place] [address] Dr. Skylar Chadwick Hemoglobin (Bld) [Mass/Vol] 12.2 g/dL Critically low 14.0-18.0 [facility] Comment on above: Performed By: #### C AILYN, BMP #### [facility] [address] [place] [address] Dr. Skylar Chadwick IG # 0.02 10e3/ul Normal 0.00-0.03 [facility] Comment on above: Performed By: #### C MADM, BMP #### [facility] [address] [place] [address] [address] Skylar Chadwick IG % 0.3 % Normal 0.0-0.5 [facility] Comment on above: Performed By: #### C MADM, BMP #### [facility] [address] [place] [address] [address] Skylar Chadwick LYMPH # 2.2 103/ul Normal 1.2-3.8 [facility] Comment on above: Performed By: #### C MADM, BMP #### [facility] [address] [place] [address] [address] Skylar Chadwick Lymphocytes/100 WBC (Bld) 30.3 % Normal 20.5-60.0 [facility] Comment on above: Performed By: #### C MADM, BMP #### [facility] [address] [place] [address] [address] Skylar Chadwick MANUAL DIFF REQ NO Normal [facility] Comment on above: Performed By: #### C MADM, BMP #### [facility] [address] [place] [address] [address] Skylar Chadwick MCH (RBC) [Entitic mass] 29.3 pg Normal 25.9-34.0 [facility] Comment on above: Performed By: #### C MADM, BMP #### [facility] [address] [place] [address] [address] Skylar Chadwick MCHC (RBC) [Mass/Vol] 32.8 g/dL Normal 29.9-35.2 [facility] Comment on above: Performed By: #### C MADM, BMP #### [facility] [address] [place] [address] [address] Skylar Chadwick MCV (RBC) [Entitic vol] 89.2 fL Normal 80.0-94.0 [facility] Comment on above: Performed By: #### C MADM, BMP #### [facility] [address] [place] [address] [address] Skylar Chadwick MONO # 0.8 103/ul Normal 0.3-0.8 [facility] Comment on above: Performed By: #### C MADM, BMP #### [facility] [address] [place] [address] Dr. Skylar Chadwick Monocytes/100 WBC (Bld) 10.9 % Normal 1.7-12.0 [facility] Comment on above: Performed By: #### C MADM, BMP #### [facility] [address] [place] [address] Dr. Skylar Chadwick NEUT # 4.0 103/ul Normal 1.4-6.5 [facility] Comment on above: Performed By: #### C CARLOS ENRIQUEM, BMP #### [facility] [address] [place] [address] Dr. Skylar Chadwick Neutrophils/100 WBC (Bld) 55.0 % Normal 43.0-75.0 [facility] Comment on above: Performed By: #### C AILYN, BMP #### [facility] [address] [place] [address] Dr. Skylar Chadwick Platelet mean volume (Bld) [Entitic vol] 10.3 fL Normal 9.5-13.5 [facility] Comment on above: Performed By: #### C AILYN, BMP #### [facility] [address] [place] [address] Dr. Skylar Chadwick PLT 289 103/ul Normal 150-450 [facility] Comment on above: Performed By: #### C AILYN, BMP #### [facility] [address] [place] [address] Dr. Skylar Chadwick RBC 4.17 106/ul Critically low 4.70-6.10 [facility] Comment on above: Performed By: #### C CARLOS ENRIQUEM, BMP #### [facility] [address] [place] [address] Dr. Skylar Chadwick WBC 7.2 103/ul Normal 4.0-11.0 [facility] Comment on above: Performed By: #### C CARLOS ENRIQUEM, BMP #### [facility] [address] [place] [address] Dr. Skylar Chadwick CRPon 11-02-2022 CRP 1.3 mg/dL Critically high <=1.0 [facility] Comment on above: Performed By: #### U EFRAÍN, CMP, CRP #### [facility] [address] [address] [address] Skylar Chadwick PROF 14(COMP METB)on 023 Albumin [Mass/Vol] 3.4 g/dL Normal 3.4-5.0 [facility] Comment on above: Performed By: #### U EFRAÍN, CMP, CRP #### [facility] [address] [address] [address] Skylar Chadwick Albumin/Globulin [Mass ratio] 0.7 {ratio} Normal [facility] Comment on above: Performed By: #### U EFRAÍN, CMP, CRP #### [facility] [address] [address] [address] Skylar Chadwick ALP [Catalytic activity/Vol] 72 U/L Normal 46-116 [facility] Comment on above: Performed By: #### U EFRAÍN, CMP, CRP #### [facility] [address] [address] [address] Skylar Chadwick ALT [Catalytic activity/Vol] 28 U/L Normal 16-63 [facility] Comment on above: Performed By: #### U EFRAÍN, CMP, CRP #### [facility] [address] [address] [address] Skylar Chadwick Anion gap [Moles/Vol] 9.9 mmol/L Normal [facility] Comment on above: Performed By: #### U EFRAÍN, CMP, CRP #### [facility] [address] [address] [address] Skylar Chadwick AST [Catalytic activity/Vol] 19 U/L Normal 15-37 [facility] Comment on above: Performed By: #### U EFRAÍN, CMP, CRP #### [facility] [address] [address] [address] Skylar Chadwick Bilirubin [Mass/Vol] 0.3 mg/dL Normal 0.2-1.0 [facility] Comment on above: Performed By: #### U EFRAÍN, CMP, CRP #### [facility] [address] [address] [address] Skylar Chadwick Calcium [Mass/Vol] 9.8 mg/dL Normal 8.5-10.1 [facility] Comment on above: Performed By: #### U EFRAÍN, CMP, CRP #### [facility] [address] [address] [address] Skylar Chadwick Chloride [Moles/Vol] 103 mmol/L Normal 98-107 [facility] Comment on above: Performed By: #### U EFRAÍN, CMP, CRP #### [facility] [address] [address] [address] Skylar Chadwick CO2 [Moles/Vol] 31.0 mmol/L Normal 21.0-32.0 [place] Comment on above: Performed By: #### U EFRAÍN, CMP, CRP #### [facility] [address] [address] [address] Skylar Chadwick Creatinine [Mass/Vol] 1.14 mg/dL Normal 0.70-1.30 [facility] Comment on above: Performed By: #### U EFRAÍN, CMP, CRP #### [facility] [address] [address] [address] Skylar Chadwick EGFR-AF ERITREAN >60 Normal >=60 [facility] Comment on above: Performed By: #### U EFRAÍN, CMP, CRP #### [facility] [address] [address] [address] Skylar Chadwick EGFR-NON AF ERITREAN >60 Normal >=60 [facility] Comment on above: Performed By: #### U EFRAÍN, CMP, CRP #### [facility] [address] [address] [address] Skylar Chadwick Globulin (S) [Mass/Vol] 4.8 g/dL Normal [facility] Comment on above: Performed By: #### U EFRAÍN, CMP, CRP #### [facility] [address] [address] [address] Skylar Chadwick Glucose [Mass/Vol] 88 mg/dL Normal 74-106 [facility] Comment on above: Performed By: #### U EFRAÍN, CMP, CRP #### [facility] [address] [address] [address] Skylar Chadwick Potassium [Moles/Vol] 3.9 mmol/L Normal 3.5-5.1 [facility] Comment on above: Performed By: #### U EFRAÍN, CMP, CRP #### [facility] [address] [address] [address] Skylar Chadwick Protein [Mass/Vol] 8.2 g/dL Normal 6.4-8.2 [facility] Comment on above: Performed By: #### U EFRAÍN, CMP, CRP #### [facility] [address] [address] [address] Skylar Chadwick Sodium [Moles/Vol] 140 mmol/L Normal 136-145 [facility] Comment on above: Performed By: #### U EFRAÍN, CMP, CRP #### [facility] [address] [address] [address] Skylar Chadwick Urea nitrogen [Mass/Vol] 18.0 mg/dL Normal 7.0-18.0 [facility] Comment on above: Performed By: #### U EFRAÍN, CMP, CRP #### [facility] [address] [address] [address] Skylar Chadwick Urea nitrogen/Creatinine [Mass ratio] 15.8 mg/mg Normal [facility] Comment on above: Performed By: #### U EFRAÍN, CMP, CRP #### [facility] [address] [address] [address] Skylar Chadwick [facility]ATE 67 mm/hr Critically high <=20 [facility] Comment on above: Performed By: #### C MADM, BMP #### [facility] [address] [address] [address] Skylar Chadwick URIC ACID SERUMon 11-02-2022 Urate [Mass/Vol] 3.3 mg/dL Critically low 3.5-7.2 [facility] Comment on above: Performed By: #### U EFRAÍN, CMP, CRP #### [facility] [address] [address] [address] Skylar Chadwick XR KNEE LT 3Von 11-02-2022 XR KNEE LT 3V EXAM: XR KNEE LT 3V HISTORY: Effusion of joint of left knee COMPARISON: None. TECHNIQUE: 3 views FINDINGS: There is no acute fracture or dislocation. No radiopaque foreign body. The soft tissues are unremarkable. IMPRESSION: No acute fracture or dislocation. Electronically authenticated by: BONNIE LILIA Date: 2022-11-02 14:46 Normal [facility] ECHOCARDIO M/2D COMPLETEon 0 10-28-2022 ECHOCARDIO M/2D COMPLETE Patient: KRISTY DOHERTY Exam Date: 10/28/2022 : 1955 Gender:M Ordering : DR BORIS KIM M.D. Admission #: [id number] Family : Order #: [id number] CLICK HERE TO VIEW EXAM ECHOCARDIOGRAM REPORT [...] Boris Kim M.D. on 10/30/2022 at 19:19 [facility] XR CHEST 2 Von 09-05-2022 XR CHEST [...] by: ASIF COLVIN Date: 2022-09-05 15:49 Normal [facility] ECHOCARDIO M/2D COMPLETEon 0 08-18-2022 ECHOCARDIO M/2D COMPLETE Patient: KRISTY DOHERTY Exam Date: 08/18/2022 : 1955 Gender:M Ordering : MILDRED LOGAN Admission #: [id number] Family : Order #: [id number] CLICK HERE TO VIEW EXAM ECHOCARDIOGRAM REPORT [...] Area (VTI): 2.22 cm2, 2.22 cm2 Deceleration Knott: 1.61 m/s2 Pressure Half-Time: 686.93 ms Peak [...] Boris Kim M.D. on 08/19/2022 at 17:24 Normal [facility] CARDIAC BONNIE 3-6on 2 CK [Catalytic activity/Vol] 231 U/L Normal 39-308 [facility] Comment on above: Performed By: #### C MREP #### [facility] [address] [place] [address] Dr. Skylar Chadwick CK.MB [Mass/Vol] 1.39 ng/mL Normal <=3.60 [facility] Comment on above: Performed By: #### C MREP #### [facility] [address] [place] [address] Dr. Skylar Chadwick HSTROP 41.4 pg/mL Normal 4.0-76.1 [facility] Comment on above: Result Comment: CUT- OFF POINTS HAVE BEEN ESTABLISHED BASED ON THE FOURTH UNIVERSAL DEFINITIONS OF MYOCARDIAL INFARCTION. THE UPPER REFERENCE LIMIT (URL) OF TROPONIN, DEFINED THE 99TH PERCENTILE OF cTnI DISTRIBUTION IN A REFERENCE POPULATION, HAS BEEN CONFIRMED THE DECISION THRESHOLD FOR ID DIAGNOSIS. Performed By: #### C MREP #### [facility] [address] [place] [address] Dr. Skylar Chadwick CK [Catalytic activity/Vol] 214 U/L Normal 39-308 [facility] Comment on above: Performed By: #### C MREP #### [facility] [address] [place] [address] Dr. Skylar Chadwick CK.MB [Mass/Vol] 1.37 ng/mL Normal <=3.60 [facility] Comment on above: Performed By: #### C MREP #### [facility] [address] [place] [address] Dr. Skylar Chadwick HSTROP 37.0 pg/mL Normal 4.0-76.1 [facility] Comment on above: Result Comment: CUT- OFF POINTS HAVE BEEN ESTABLISHED BASED ON THE FOURTH UNIVERSAL DEFINITIONS OF MYOCARDIAL INFARCTION. THE UPPER REFERENCE LIMIT (URL) OF TROPONIN, DEFINED THE 99TH PERCENTILE OF cTnI DISTRIBUTION IN A REFERENCE POPULATION, HAS BEEN CONFIRMED THE DECISION THRESHOLD FOR ID DIAGNOSIS. Performed By: #### C MREP #### [facility] [address] [place] [address] Dr. Skylar Chadwick CBC AUTO DIFFon 07-02-2022 BASO # 0.1 103/ul Normal 0.0-0.1 [facility] Comment on above: Performed By: #### C MADM, BMP #### [facility] [address] [place] [address] Dr. Skylar Chadwick Basophils/100 WBC (Bld) 1.3 % Normal 0.2-2.0 [facility] Comment on above: Performed By: #### C MADM, BMP #### [facility] [address] [place] [address] Dr. Skylar Chadwick EO # 0.6 103/ul Normal 0.0-0.7 [facility] Comment on above: Performed By: #### C MADM, BMP #### [facility] [address] [place] [address] Dr. Skylar Chadwick Eosinophils/100 WBC (Bld) 7.1 % Critically high 0.9-7.0 [facility] Comment on above: Performed By: #### C CARLOS ENRIQUEM, BMP #### [facility] [address] [place] [address] Dr. Skylar Chadwick Erythrocyte distribution width (RBC) [Ratio] 13.0 % Normal 11.0-15.0 [facility] Comment on above: Performed By: #### C CARLOS ENRIQUEM, BMP #### [facility] [address] [place] [address] Dr. Skylar Chadwick Hematocrit (Bld) [Volume fraction] 37.2 % Critically low 42.0-54.0 [facility] Comment on above: Performed By: #### C MADM, BMP #### [facility] [address] [place] [address] Dr. Skylar Chadwick Hemoglobin (Bld) [Mass/Vol] 13.2 g/dL Critically low 14.0-18.0 [facility] Comment on above: Performed By: #### C MADM, BMP #### [facility] [address] [address] [address] Skylar Chadwick IG # 0.02 10e3/ul Normal 0.00-0.03 [facility] Comment on above: Performed By: #### C AILYN, BMP #### [facility] [address] [place] [address] Dr. Skylar Chadwick IG % 0.3 % Normal 0.0-0.5 [facility] Comment on above: Performed By: #### C AILYN, BMP #### [facility] [address] [place] [address] Dr. Skylar Chadwick LYMPH # 2.2 103/ul Normal 1.2-3.8 [facility] Comment on above: Performed By: #### C AILYN, BMP #### [facility] [address] [place] [address] Dr. Skylar Chadwick Lymphocytes/100 WBC (Bld) 27.4 % Normal 20.5-60.0 [facility] Comment on above: Performed By: #### C AILYN, BMP #### [facility] [address] [place] [address] Dr. Skylar Chadwick MANUAL DIFF REQ NO Normal [facility] Comment on above: Performed By: #### C AILYN, BMP #### [facility] [address] [place] [address] Dr. Skylar Chadwick MCH (RBC) [Entitic mass] 32.4 pg Normal 25.9-34.0 [facility] Comment on above: Performed By: #### C AILYN, BMP #### [facility] [address] [place] [address] Dr. Skylar Chadwick MCHC (RBC) [Mass/Vol] 35.5 g/dL Critically high 29.9-35.2 [facility] Comment on above: Performed By: #### C AILYN, BMP #### [facility] [address] [place] [address] Dr. Skylar Chadwick MCV (RBC) [Entitic vol] 91.2 fL Normal 80.0-94.0 [facility] Comment on above: Performed By: #### C AILYN, BMP #### [facility] [address] [address] [address] Skylar Chadwick MONO # 1.1 103/ul Critically high 0.3-0.8 [facility] Comment on above: Performed By: #### C AILYN, BMP #### [facility] [address] [address] [address] Skylar Chadwick Monocytes/100 WBC (Bld) 14.1 % Critically high 1.7-12.0 [facility] Comment on above: Performed By: #### C AILYN, BMP #### [facility] [address] [address] [address] Skylar Chadwick NEUT # 4.0 103/ul Normal 1.4-6.5 [facility] Comment on above: Performed By: #### C AILYN, BMP #### [facility] [address] [place] [address] Dr. Skylar Chadwick Neutrophils/100 WBC (Bld) 49.8 % Normal 43.0-75.0 [facility] Comment on above: Performed By: #### C AILYN, BMP #### [facility] [address] [place] [address] Dr. Skylar Chadwick Platelet mean volume (Bld) [Entitic vol] 10.5 fL Normal 9.5-13.5 [facility] Comment on above: Performed By: #### C AILYN, BMP #### [facility] [address] [place] [address] Dr. Skylar Chadwick PLT 159 103/ul Normal 150-450 [facility] Comment on above: Performed By: #### C AILYN, BMP #### [facility] [address] [place] [address] Dr. Skylar Chadwick RBC 4.08 106/ul Critically low 4.70-6.10 [facility] Comment on above: Performed By: #### C AILYN, BMP #### [facility] [address] [place] [address] Dr. Skylar Chadwick WBC 8.0 103/ul Normal 4.0-11.0 [facility] Comment on above: Performed By: #### C AILYN, BMP #### [facility] [address] [place] [address] [address] [address] Skylar Chadwick Covid-19 PCR (CVDTB)on 06-18 SARS-CoV-2 (COVID-19) RNA DANDY+probe Ql (Unsp spec) Not detected Normal NOT DETECTED [facility] Comment on above: Result Comment: When diagnostic [...] for this test is supported by the [place] of [employer] and Human Service's declaration that [...] longer be used). Performed By: #### C [facility] #### [facility] [address] [place], [place] [id number] Dr. Skylar Chadwick ECHOCARDIO M/2D COMPLETEon 1 09-02-2021 ECHOCARDIO M/2D COMPLETE Patient: KRISTY DOHERTY Exam Date: 07/02/2022 : 1955 Gender:M Ordering : EDDIE SISTER Admission #: [id number] Family : DR RUDY KING . Order #: [id number] CLICK HERE TO VIEW EXAM ECHOCARDIOGRAM REPORT [...] Mills M.D. on 07/02/2022 at 14:11 Normal [facility] PROF CHEM 8 (BAS METB)on Anion gap [Moles/Vol] 8.4 mmol/L Normal [facility] Comment on above: Performed By: #### B MP #### [facility] [address] [place] [address] Dr. Skylar Chadwick Calcium [Mass/Vol] 8.3 mg/dL Critically low 8.5-10.1 [facility] Comment on above: Performed By: #### B MP #### [facility] [address] [address] [address] Skylar Chadwick Chloride [Moles/Vol] 97 mmol/L Critically low 98-107 [facility] Comment on above: Performed By: #### B MP #### [facility] [address] [address] [address] Skylar Chadwick CO2 [Moles/Vol] 32.9 mmol/L Critically high 21.0-32.0 [facility] Comment on above: Performed By: #### B MP #### [facility] [address] [address] [address] Skylar Chadwick Creatinine [Mass/Vol] 1.08 mg/dL Normal 0.70-1.30 [facility] Comment on above: Performed By: #### B MP #### [facility] [address] [address] [address] Skylar Chadwick EGFR-AF ERITREAN >60 Normal >=60 [place] Comment on above: Performed By: #### B MP #### [facility] [address] [address] [address] Skylar Chadwick EGFR-NON AF ERITREAN >60 Normal >=60 [facility] Comment on above: Performed By: #### B MP #### [facility] [address] [address] [address] Skylar Chadwick Glucose [Mass/Vol] 114 mg/dL Critically high 74-106 [facility] Comment on above: Performed By: #### B MP #### [facility] [address] [address] [address] Skylar Chadwick Potassium [Moles/Vol] 3.3 mmol/L Critically low 3.5-5.1 [facility] Comment on above: Performed By: #### B MP #### [facility] [address] [address] [address] Skylar Chadwick Sodium [Moles/Vol] 135 mmol/L Critically low 136-145 [facility] Comment on above: Performed By: #### B MP #### [facility] [address] [address] [address] Skylar Chadwick Urea nitrogen [Mass/Vol] 13.0 mg/dL Normal 7.0-18.0 [facility] Comment on above: Performed By: #### B MP #### [facility] [address] [address] [address] Skylar Chadwick Urea nitrogen/Creatinine [Mass ratio] 12.0 mg/mg Normal [facility] Comment on above: Performed By: #### B MP #### [facility] [address] [address] [address] Skylar Chadwick Anion gap [Moles/Vol] 8.6 mmol/L Normal [facility] Comment on above: Performed By: #### C MADM, BMP #### [facility] [address] [address] [address] Skylar Chadwick Calcium [Mass/Vol] 8.6 mg/dL Normal 8.5-10.1 [facility] Comment on above: Performed By: #### C MADM, BMP #### [facility] [address] [address] [address] Skylar Chadwick Chloride [Moles/Vol] 96 mmol/L Critically low 98-107 [facility] Comment on above: Performed By: #### C MADM, BMP #### [facility] [address] [place] [address] Dr. Skylar Chadwick CO2 [Moles/Vol] 34.2 mmol/L Critically high 21.0-32.0 [facility] Comment on above: Performed By: #### C MADM, BMP #### [facility] [address] [address] [address] Skylar Chadwick Creatinine [Mass/Vol] 1.05 mg/dL Normal 0.70-1.30 [facility] Comment on above: Performed By: #### C MADM, BMP #### [facility] [address] [address] [address] Skylar Chadwick EGFR-AF ERITREAN >60 Normal >=60 [place] Comment on above: Performed By: #### C MADM, BMP #### [facility] [address] [address] [address] Skylar Chadwick EGFR-NON AF ERITREAN >60 Normal >=60 [facility] Comment on above: Performed By: #### C MADM, BMP #### [facility] [address] [address] [address] Skylar Chadwick Glucose [Mass/Vol] 113 mg/dL Critically high 74-106 [facility] Comment on above: Performed By: #### C MADM, BMP #### [facility] [address] [address] [address] Skylar Chadwick Potassium [Moles/Vol] 2.8 mmol/L Critically low 3.5-5.1 [facility] Comment on above: Performed By: #### C MADM, BMP #### [facility] [address] [address] [address] Skylar Chadwick Sodium [Moles/Vol] 136 mmol/L Normal 136-145 [facility] Comment on above: Performed By: #### C MADM, BMP #### [facility] [address] [address] [address] Skylar Chadwick Urea nitrogen [Mass/Vol] 10.0 mg/dL Normal 7.0-18.0 [facility] Comment on above: Performed By: #### C MADM, BMP #### [facility] [address] [address] [address] Skylar Chadwick Urea nitrogen/Creatinine [Mass ratio] 9.5 mg/mg Normal [facility] Comment on above: Performed By: #### C MADM, BMP #### [facility] [address] [place] [address] Dr. Skylar Chadwick US CAROTID ART BILon -15-2 022 US CAROTID ART ELEN EXAMINATION: US [...] ASIF JOHN Date: 2022-07-02 11:23 Normal [facility] CARDIAC BONNIE ADMITon 022 CK [Catalytic activity/Vol] 201 U/L Normal 39-308 [facility] Comment on above: Performed By: #### C CARLOS ENRIQUEM, BMP #### [facility] [address] [address] [address] Skylar Chadwick CK.MB [Mass/Vol] 1.31 ng/mL Normal <=3.60 [facility] Comment on above: Performed By: #### C CARLOS ENRIQUEM, BMP #### [facility] [address] [address] [address] Skylar Chadwick HSTROP 34.8 pg/mL Normal 4.0-76.1 [facility] Comment on above: Result Comment: CUT- OFF POINTS HAVE BEEN ESTABLISHED BASED ON THE FOURTH UNIVERSAL DEFINITIONS OF MYOCARDIAL INFARCTION. THE UPPER REFERENCE LIMIT (URL) OF TROPONIN, DEFINED THE 99TH PERCENTILE OF cTnI DISTRIBUTION IN A REFERENCE POPULATION, HAS BEEN CONFIRMED THE DECISION THRESHOLD FOR ID DIAGNOSIS. Performed By: #### C CARLOS ENRIQUEM, BMP #### [facility] [address] [place] [address] Dr. Skylar Chadwick NHAN 336 ng/mL Critically high 16-96 [facility] Comment on above: Performed By: #### C CARLOS ENRIQUEM, BMP #### [facility] [address] [place] [address] Dr. Skylar Chadwick CBC AUTO DIFFon 07-01-2022 BASO # 0.1 103/ul Normal 0.0-0.1 [facility] Comment on above: Performed By: #### C BC #### [facility] [address] [place] [address] Dr. Skylar Chadwick Basophils/100 WBC (Bld) 1.2 % Normal 0.2-2.0 [facility] Comment on above: Performed By: #### C BC #### [facility] [address] [place] [address] Dr. Skylar Chadwick EO # 0.5 103/ul Normal 0.0-0.7 [facility] Comment on above: Performed By: #### C BC #### [facility] [address] [place] [address] Dr. Skylar Chadwick Eosinophils/100 WBC (Bld) 6.3 % Normal 0.9-7.0 [facility] Comment on above: Performed By: #### C BC #### [facility] [address] [place] [address] Dr. Skylar Chadwick Erythrocyte distribution width (RBC) [Ratio] 12.9 % Normal 11.0-15.0 [facility] Comment on above: Performed By: #### C BC #### [facility] [address] [place] [address] Dr. Skylar Chadwick Hematocrit (Bld) [Volume fraction] 38.0 % Critically low 42.0-54.0 [facility] Comment on above: Performed By: #### C BC #### [facility] [address] [place] [address] Dr. Skylar Chadwick Hemoglobin (Bld) [Mass/Vol] 13.5 g/dL Critically low 14.0-18.0 [facility] Comment on above: Performed By: #### C BC #### [facility] [address] [place] [address] Dr. Skylar Chadwick IG # 0.02 10e3/ul Normal 0.00-0.03 [facility] Comment on above: Performed By: #### C BC #### [facility] [address] [place] [address] Dr. Skylar Chadwick IG % 0.2 % Normal 0.0-0.5 [facility] Comment on above: Performed By: #### C BC #### [facility] [address] [place] [address] Dr. Skylar Chadwick LYMPH # 2.6 103/ul Normal 1.2-3.8 [facility] Comment on above: Performed By: #### C BC #### [facility] [address] [place] [address] Dr. Skylar Chadwick Lymphocytes/100 WBC (Bld) 30.5 % Normal 20.5-60.0 [facility] Comment on above: Performed By: #### C BC #### [facility] [address] [place] [address] Dr. Skylar Chadwick MANUAL DIFF REQ NO Normal [facility] Comment on above: Performed By: #### C BC #### [facility] [address] [place] [address] Dr. Skylar Chadwick MCH (RBC) [Entitic mass] 32.2 pg Normal 25.9-34.0 [facility] Comment on above: Performed By: #### C BC #### [facility] [address] [place] [address] Dr. Skylar Chadwick MCHC (RBC) [Mass/Vol] 35.5 g/dL Critically high 29.9-35.2 [facility] Comment on above: Performed By: #### C BC #### [facility] [address] [place] [address] Dr. Skylar Chadwick MCV (RBC) [Entitic vol] 90.7 fL Normal 80.0-94.0 [facility] Comment on above: Performed By: #### C BC #### [facility] [address] [place] [address] Dr. Skylar Chadwick MONO # 1.2 103/ul Critically high 0.3-0.8 [facility] Comment on above: Performed By: #### C BC #### [facility] [address] [place] [address] Dr. Skylar Chadwick Monocytes/100 WBC (Bld) 14.3 % Critically high 1.7-12.0 [facility] Comment on above: Performed By: #### C BC #### [facility] [address] [place] [address] Dr. Skylar Chadwick NEUT # 4.0 103/ul Normal 1.4-6.5 [facility] Comment on above: Performed By: #### C BC #### [facility] [address] [place] [address] Dr. Skylar Chadwick Neutrophils/100 WBC (Bld) 47.5 % Normal 43.0-75.0 [facility] [facility] Comment on above: Performed By: #### C BC #### [facility] [address], [place] [address] Dr. Skylar Chadwick Platelet mean volume (Bld) [Entitic vol] 10.4 fL Normal 9.5-13.5 [facility] Comment on above: Performed By: #### C BC #### [facility] [address] [address] [address] Skylar Chadwick PLT 175 103/ul Normal 150-450 [facility] Comment on above: Performed By: #### C BC #### [facility] [address] [address] [address] Skylar Chadwick RBC 4.19 106/ul Critically low 4.70-6.10 [facility] Comment on above: Performed By: #### C BC #### [facility] [address] [address] [address] Skylar Chadwick WBC 8.4 103/ul Normal 4.0-11.0 [facility] Comment on above: Performed By: #### C BC #### [facility] [address] [address] [address] CSPINE WO CONon [...] BRIAN BRADSHAW Date: 2022-07-01 21:26 Normal [facility] [address] HEAD WO CONon 07-01-2022 CT HEAD [...] of the sinuses are not in the [id number]. The middle ears are aerated the mastoid [...] ADIEL KERN Date: 2022-07-01 20:44 Normal [facility] D-DIMERon 07-01-2022 D-DIMER 0.35 mg/L FEU Normal <=0.59 [facility] Comment on above: Performed By: #### C CARLOS ENRIQUE, [facility] #### [facility] [address] [place] [address] Dr. Skylar Chadwick D-DIMER COMMENTS SEE BELOW Normal [facility] Comment on above: Result Comment: Incr eases [...] Performed By: #### C AILYN, BMP #### [facility] [address] [address] [address] Skylar Chadwick PROF CHEM 8 (BAS METB)on Anion gap [Moles/Vol] 13.5 mmol/L Normal [facility] Comment on above: Performed By: #### C CARLOS ENRIQUEM, BMP #### [facility] [address] [place] [address] Dr. Skylar Chadwick Calcium [Mass/Vol] 8.8 mg/dL Normal 8.5-10.1 [facility] Comment on above: Performed By: #### C AILYN, BMP #### [facility] [address] [place] [address] Dr. Skylar Chadwick Chloride [Moles/Vol] 94 mmol/L Critically low 98-107 [facility] Comment on above: Performed By: #### C AILYN, BMP #### [facility] [address] [place] [address] Dr. Skylar Chadwick CO2 [Moles/Vol] 29.0 mmol/L Normal 21.0-32.0 [facility] Comment on above: Performed By: #### C AILYN, BMP #### [facility] [address] [place] [address] Dr. Skylar Chadwick Creatinine [Mass/Vol] 1.03 mg/dL Normal 0.70-1.30 [facility] Comment on above: Performed By: #### C AILYN, BMP #### [facility] [address] [place] [address] Dr. Skylar Chadwick EGFR-AF ERITREAN >60 Normal >=60 [facility] Comment on above: Performed By: #### C AILYN, BMP #### [facility] [address] [place] [address] Dr. Skylar Chadwick EGFR-NON AF ERITREAN >60 Normal >=60 [facility] Comment on above: Performed By: #### C AILYN, BMP #### [facility] [address] [place] [address] Dr. Skylar Chadwick Glucose [Mass/Vol] 111 mg/dL Critically high 74-106 T [facility] Comment on above: Performed By: #### C AILYN, BMP #### [facility] [address] [place] [address] Dr. Skylar Chadwick Potassium [Moles/Vol] 2.5 mmol/L Critically low 3.5-5.1 [facility] Comment on above: Performed By: #### C AILYN, BMP #### [facility] [address] [place] [address] Dr. Skylar Chadwick Sodium [Moles/Vol] 134 mmol/L Critically low 136-145 Th [facility] Comment on above: Performed By: #### C AILYN, BMP #### [facility] [address] [place] [address] Dr. Skylar Chadwick Urea nitrogen [Mass/Vol] 12.0 mg/dL Normal 7.0-18.0 [facility] Comment on above: Performed By: #### C AILYN, BMP #### [facility] [address] [place] [address] Dr. Skylar Chadwick Urea nitrogen/Creatinine [Mass ratio] 11.7 mg/mg Normal [facility] Comment on above: Performed By: #### C AILYN, BMP #### [facility] [address] [place] [address] Dr. Skylar Chadwick XR CHEST 1 Von [...] by: SOBEIDA MONCADA Date: 2022-07-01 20:44 Normal [facility] Outside Colonoscopyon 2021 Outside Colonoscopy [id number] D:127 Normal [facility] RAD - MISCon 01-29-2022 RAD - MISC [id number] D:127 Normal [facility] XR COLON AIR CONTR.on 2021 XR COLON AIR CONTR. EXAMINATION: XR COLO N AIR CONTR. HISTORY: Colonoscopy abnormal COMPARISON: No relevant comparison available. FLUOROSCOPY TIME: Fluoro time measures 3 minutes 40 seconds and 22 images were obtained. TECHNIQUE: An air contrast barium enema examination was performed in the usual manner. No pipe fitter abdominal radiograph was performed. Standard level fluoroscopic mode of operation utilized. FINDINGS: COLON: No focal obstruction, mass or stricture. Mild diverticulosis distal descending and proximal sigmoid colon. OTHER: Negative. IMPRESSION: Mild diverticulosis, otherwise normal exam Electronically authenticated by: ASIF JOHN Date: 2022-01-28 14:34 Normal [facility] Pre-Certification Formon Pre-Certification Form [id number] CD:127 Normal [facility] Consent for Procedure/Surger yon 01-08-2022 Consent for Procedure/Surgery [id number] D:127 Normal [facility] Ambulatory Visit Summaryon 0 01-07-2022 Ambulatory Visit Summary KRISTY DOHERTY :1955 Visit Date:01/07/2022 Ambulatory Visit Instructions Your Diagnosis Screening for colorectal cancer Encounter for screening for malignant neoplasm of rectum Your Care Team Attending Physician - ANGELICA KLEIN, Ravi Bernstein Primary Care Physician - RUDY KING MD This Is Your Medications List Contact prescribing [...] Seasonal allergic rhinitis Vitamin D deficiency Normal [facility] Physician Referralon 022 Physician Referral [id number] D:127 Normal [facility] Encounters Encounter Date Encounter Type Care Provider Facility Start: 11-30-2023 ambulatory [facility] Start: 11-30-2023 Encounter for preprocedural cardiovascular examination [facility] Start: 11-02-2023 End: 11-02-2023 ambulatory [facility] Start: 10-13-2023 ambulatory [facility] Start: 07-22-2023 End: 07-22-2023 ambulatory RUDY KING Not Available Start: 06-29-2023 End: 06-29-2023 ambulatory BORIS KIM [facility] Start: 05-11-2023 End: 05-11-2023 ambulatory [facility] Start: 02-19-2023 End: 02-19-2023 ambulatory CUBA BUENROSTRO [facility] Start: 12-03-2022 End: 12-03-2022 ambulatory Kristy Beatty Facility:[facility] Start: 11-10-[address] RUDY KING Facil ity:[facility] Start: 11-02-2022 End: 11-03-2022 ambulatory ALEXIS CRAFT Facility:[facility] Start: 10-28-2022 End: 10-29-[address] BORIS KIM Facility:[facility] Start: 09-05-2022 End: 09-06-2022 ambulatory BOBO RAYMOND Facility:[facility] Start: 08-31-[address] BORIS KIM Fac ility:[facility] Start: 08-18-2022 End: 08-19-[address] RUDY KING Facility:[facility] Start: 08-18-2022 End: 08-19-[address] RUDY KING Facility:[facility] Start: 08-03-2022 End: 08-04-[address] RUDY KING Facility:[facility] Start: 07-02-2022 End: 07-02-[address] RUDY KING Facility:[facility] Start: 01-28-2022 End: 01-28-[address] RUDY KING Facility:[facility] Payers Date Payer Category Payer Self-pay 1959 Medicare [id number] 1959 Unknown [id number] 1955 Unknown [id number] 2.16.84 [id number] 1955 Unknown [id number] 2.16.84 0.1.390127.3.579.2.593 1955 Unknown [id number] 2.16.84 0.1.800142.3.579.2.593 1955 Unknown [id number] 2.16.84 0.1.176895.3.579.2.593 1955 Unknown [id number] 2.16.84 0.1.267668.3.579.2.593 1955 Unknown [id number] 2.16.84 0.1.096538.3.579.2.593 1955 Unknown [id number] 2.16.84 0.1.779539.3.579.2.593 1955 Unknown [id number] 2.16.84 0.1.379694.3.579.2.593 1955 Unknown [id number] 2.16.84 0.1.739484.3.579.2.593 1955 Unknown [id number] 2.16.84 0.1.594510.3.579.2.593 1955 Unknown [id number] 2.16.840 .1.227251.3.579.2.1259 Unknown [id number] 2.16.8 [id number] Clinical Notes 01-07-2022 to 06-29-2023 Note Date & Type Note Facility 06-29-2023 Note [facility] Subjective Kristy Doherty is a 67 [...] Syncope and collapse Coronary artery disease involving [place] coronary artery of [place] heart without angina pectoris Chronic systolic heart [...] June 2022 he was admitted to [facility] with syncope and echocardiogram showed new onset systolic heart failure with ejection fraction of 25%. Carotid ultrasound showed no significant stenosis. CT head was negative for intracranial pathology. He ended up being transferred to [facility] and underwent cardiac catheterization that showed mild [...] rhythm strips. He then underwent a dual-chamber [employer] ICD placement on 09/04/2022. He was [...] 2 Dupixent [employer] (more content not included)... [facility] 05-11-[address] Note [employer] Reason for follow up: Afib on device check HPI: patient is s/p ICD placement for NICM HFrEF EF 25% 09/04/22. He has been doing well and device insertion site healed well. his device check revealed episodes of atrial fibrillation for approximately 4 hours. he was not aware of this. He has no complaints of chest pain, SOB, [place], palpitations ------ Prior HPI: Kristy Doherty is a 67 y.o. year old with past medical history of acute onset systolic heart failure, hypertension, syncope and collapse. He was recently admitted to [facility] for syncope and had a TTE which show new systolic heart failure with EF 25% with global hypokinesis. He had no prior symptoms to this event. EKG showed PVCs and PACs. He had bilateral carotid artery ultrasound which should 0-49% flow stenosis. CT head negative for intracranial concerns. He was transferred to [facility] for heart cath He does drink 2 [...] Date Asthma 07/29/2012 CHF (congestive heart failure) ([facility]) Coronary artery disease History of malignant [...] wheezing, no ral (more content not included)... [facility] 02-19-2023 Note No DFT since implant ation RTC q 6 months of device interrogation and pt is due for interrogation this march [facility] 02-19-2023 Note Continue statin [facility] 02-19-2023 Note As above [facility] 02-19-2023 Note Hypertension is well controlled Continue all meds Renal function has been stable [facility] 02-19-2023 Note Patient here per car diac rehab to discuss possible titrating up on Entresto. He has no cardia symptoms whatsoever. Feels great. Review of Systems All other systems reviewed and are negative. [facility] 02-19-2023 Note [facility] CARDIOLOGY PROGR ESS NOTE [...] June 2022 he was admitted to the [facility] with syncope and echocardiogram showed new onset systolic heart failure with ejection fraction of 25%. Carotid ultrasound showed no significant stenosis. CT head was negative for intracranial pathology. He ended up being transferred to [facility] and underwent carotid catheterization that showed mild [...] rhythm strips. He then underwent a dual-chamber [employer] ICD placement on 09/04/2022. today he [...] pressures. Echocardiogram 08/18/2022: (more content not included)... [facility] 02-19-2023 Note Coronary artery dise ase is stable Continue GDMT- ASA lipitor and toprol- Pt tolerating cardiac rehab well and states he has 1 more week of rehab continue risk factor modifications- heart healthy diet, regular exercise as tolerated and continue all medications. [facility] 02-19-2023 Note [facility] II- currently e uvolemic without exacerbation Continue GDMT- ASA, lipitor, toprol, farxiga, aldactone and will increase entresto to 49-51 mg bid Repeat BMP in 1 week to assess renal function and electrolyes Diuretic therapy- farxiga- pt is euvolemic currently Monitor daily weights, I&O, fluid restriction 1.5-2L/day, renal function and electrolytes- [facility] 08-18-2022 Note PROCEDURE: XR FOOT L T [...] for patient's symptoms. Electronically authenticated by: BRIAN LEEANN Date: 2022-08-18 15:43 [facility] 08-04-2022 Note PROCEDURE: XR FOOT L T [...] authenticated by: ASIF JOHN Date: 2022-08-04 08:48 [facility] 01-28-2022 Note OPERATIVE NOTE OPERATION DATE: 01/28/2022 [...] in 10 years. CC: Rudy King M.D. [facility] Signed and Approved by: DR RAVI GERONIMO . 01/30/2022 12:35:00 [facility] 01-07-2022 Note Chief Complaint consultation for screening [...] Brother. Primary malignant neoplasm of prostate: Brother. [facility] Comment on above: Result Comment: Elec tronically [...] section and content) DATE CREATED AUTHOR 02/04/2022 [facility] DATE CREATED AUTHOR AUTHOR'S ORGANIZ ATION 11/27/2022 [facility] DATE CREATED AUTHOR AUTHOR'S ORGANIZ ATION 12/25/2022 [facility] DATE CREATED AUTHOR AUTHOR'S ORGANIZ ATION 07/24/2023 [facility] DATE CREATED AUTHOR AUTHOR'S ORGANIZ ATION 12/02/2023 [facility] FOR RECORDS PERTAINING TO PATIENTS WHO ARE [...] BE BASED ON THE PRIMARY CLINICAL RECORDS. [employer] provides no warranty or guarantee of the accuracy or completeness of information in this document.
== END 2023-12-14 09:55 | disposition home or self-care (01) ==
PROVIDERS: PCP Family Medicine; Visit Provider Internal Medicine Interventional Cardiology
DX: I50.22 Chronic systolic (congestive) heart failure (principal)
CPT/HCPCS: 93306; 93356

== ENCOUNTER 2024-01-17 09:42 | Outpatient (OUT) | payer MEDICARE, SELFPAY ==
--- OUTSIDE RECORDS SUMMARY | 2024-01-17 10:04 | XMS_ITS | CCD ---
Author Organization [facility]iniSyga Care Team Providers Care Car Cooper Name Role Phone JUDY, DR ESCALANTE Attending Unavailable MOUKARBEL, DR ESCALANTE Admitting Unavailable NADERER, DR RUDY Simpson Primary Care Unavailable NADERER, DR RUDY Simpson Primary Care Unavailable MOUKARBEL, DR ESCALANTE Admitting Unavailable MOUKARBEL, DR ESCALANTE Consulting Unavailable MOUKARBEL, DR ESCALANTE Attending Unavailable NADERER, DR RUDY Simpson Primary Care Unavailable NADERER, DR RUDY Simpson Attending Unavailable NADERER, DR URDY Simpson Admitting Unavailable MENDOZA ., DR DENI [...] RUDY Simpson Primary Care Unavailable ZIEBER, DR BIRAN Bernstein Consulting Unavailable KAE GOMEZ Attending Unavailable KAE GOMEZ Admitting Unavailable JASONKAE VICKERS Consulting Unavailable BOBO RAYMOND Attending Unavailable BOBO RAYMOND Admitting Unavailable ASIF COLVIN Consulting Unavailable NADERER, DR RUDY Simpson Primary Care Unavailable BOBO RAYMOND Consulting Unavailable MOUKARBEL, DR ESCALANTE Consulting Unavailable MOUKARBEL, DR ESCALANTE Attending Unavailable MOUKARBEL, DR ESCALANTE Admitting Unavailable NADERER, DR RUDY Simpson Primary Care Unavailable AICHHOLZ, RECOVERY ROOM RN APOORVA Admitting Unavailable AICHHOLZ, RECOVERY ROOM RN AOPORVA Consulting Unavailable AICHHOLZ, RECOVERY ROOM RN APOORVA Attending Unavailable NADERER, DR RUDY Simpson Primary Care Unavailable BONNIE RODRIGUES Consulting Unavailable NADERER, DR RUDY Simpson Primary Care Unavailable BARAZI, MILDRED Admitting Unavailable MILDRED LOGAN Consulting Unavailable MILDRED LOGAN Attending Unavailable DR RUDY KING Primary Care Unavailable PENFIELD, DR ASIF Davila Consulting Unavailable FAWFAMILIA, H Attending Unavailable FAWLINDYD, H Admitting Unavailable FAWLINDYD, H Consulting Unavailable Rogerio, Kristy Attending Unavailable Haladatiara, Kristy Admitting Unavailable RUDY KING Attending Unavailable CHITRA, CUBA Attending Unavailable CHITRA, CUBA Attending Unavailable GABRIEL, BOBO Referring Unavailable ROCÍO, BEBA Referring Unavailable GABRIEL, BOBO Referring Unavailable GABRIEL, BOBO Referring Unavailable ROCÍO, BEBA Referring Unavailable MOUKARBELBORIS Attending Unavailable GABRIEL, BOBO Attending Unavailable GABRIEL, BOBO Referring Unavailable Problems Active Problems Problem Classification Problem [...] disease (2 sources) 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; Translations: [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] Onset: 07-06-2022 Chronic 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 *Monitor daily weights, fluid restriction 1.5-2Liters/day, lab work to check kidney/renal function and electrolytes *Call office for weight gain of 2 pounds in 1 day or 5 pounds in 1 week, increased leg swelling, shortness of breath or shortness of breath at night and having to sleep sitting up taller/more pillows than normal or in recliner. Have labs drawn please for cholesterol levels, kidney function, liver function and Complete blood count- must be fasting Normal [facility] Office Visiton 01-06-2024 Follow-up visit [id number] Dominik Doherty 1955 M Date Provider Department Center 01/06/2024 120CUBA MALLOY ALON [facility] Family History Problem Relation Age of Onset Other Mother Family Status - Relation Status Age at Mother Level of Service:99773 ND OFFICE/OUTPATIENT ESTABLISHED MOD MDM 30 MIN Normal [facility] Office Visiton 06-29-2023 Follow-up visit [id number] Dominik Doherty ert 1955 [facility] Provider Department Center 06/29/2023 BORIS COONEY ALON [facility] Family History Problem Relation Age of Onset Other Mother Family Status - Relation Status Age at Mother Level of Service:15134 ND OFFICE/OUTPATIENT ESTABLISHED MOD MDM 30-39 MIN Normal [facility] Office Visiton 05-11-2023 Follow-up visit [id number] Dominik Doherty ert 1955 [facility] Provider Department Center 05/11/2023 MauroKennediGABRIEL BOBO ALON [facility] Family History Problem Relation Age of Onset Other Mother Family Status - Relation Status Age at Mother Level of Service:19980 ND OFFICE/OUTPATIENT ESTABLISHED MOD MDM 30-39 MIN Normal [facility] 37on 02-19-2023 37 Increase entresto to higher dose 49-51 mg tablet twice daily Please have blood drawn next week to check kidney function and electrolytes. Continue cardiac rehab Monitor daily weights, low sodium/heart healthy diet, fluid restriction 1.5-2L/day Normal [facility] Office Visiton 02-19-2023 Follow-up visit [id number] Dominik Doherty ert 1955 [facility] Provider Department Center 02/19/2023 CUBA RAY ALON [facility] Family History Problem Relation Age of Onset Other Mother Family Status - Relation Status Age at Mother Level of Service:63331 ND OFFICE/OUTPATIENT ESTABLISHED MOD MDM 30-39 MIN Normal [facility] COLLIN Antinuclear Antibodieson 12-03-2022 Antinuclear Abs, IFA Positive Critically abnormal . [facility] Comment on above: Result Comment: Nega tive <1:80 Borderline 1:80 Positive >1:80 Performed By: #### A NA #### [facility] , #### PTH, CRP, CBC, ESR, URIC, CMP #### [facility] [address] Homogeneous Pattern 1:[address] Normal . [facility] Comment on above: Result Comment: ICAP nomenclature: AC-1 Performed By: #### A NA #### [facility] , #### PTH, CRP, CBC, ESR, URIC, CMP #### [facility] [address] Note 1 Normal . [facility] Comment on above: Result Comment: For [...] titers Nucleosomes, Histones Drug-induced SLE Speckled Sm, COMMUNITY LEADER, SCL-70, SLE,MCTD,PSS (diffuse form), SS-A/SS-B Sjogrens Nucleolar SCL-70, PM-1/SCL High titers Scleroderma, PM/DM Centromere Centromere PSS (limited form) w/Crest syndrome variable Nuclear Dot [id number] Primary Biliary Cirrhosis Nuclear GP210, Primary Biliary Cirrhosis Membrane flor A,B,C Performed at: - [facility] [id number] Java Web User Interface Developer: John Acosta PhD, Phone: [phone] PERFORMED BY: [place] [address] PATHOLOGIST RN DOCUMENTATION ROMULO SERRA M.D. Performed By: #### A NA #### [facility] , #### PTH, CRP, CBC, ESR, URIC, CMP #### [facility] [address] C-Reactive Proteinon 05-18-2 023 C-Reactive Protein 0.6 mg/dL High 0.0-0.5 [facility] Comment on above: Result Comment: PERF ORMED BY: [place] [address] PATHOLOGIST RN DOCUMENTATION ROMULO SERRA M.D. Performed By: #### A NA #### [facility] , #### PTH, CRP, CBC, ESR, URIC, CMP #### [address] Complete Blood Count Auto Di ffon 12-03-2022 Basophils (Bld) [#/Vol] 0.1 10*3/uL Normal 0.0-0.2 [facility] Comment on above: Performed By: #### A NA #### [facility] , #### PTH, CRP, CBC, ESR, URIC, CMP #### [address] Basophils/100 WBC (Bld) 1.1 % Normal . [facility] Comment on above: Performed By: #### A NA #### [facility] , #### PTH, CRP, CBC, ESR, URIC, CMP #### [address] Eosinophils (Bld) [#/Vol] 0.3 10*3/uL Normal 0.0-0.45 [facility] Comment on above: Performed By: #### A NA #### [facility] , #### PTH, CRP, CBC, ESR, URIC, CMP #### [address] Eosinophils/100 WBC (Bld) 4.2 % Normal . [facility] Comment on above: Performed By: #### A NA #### [facility] , #### PTH, CRP, CBC, ESR, URIC, CMP #### [address] Erythrocyte distribution width (RBC) [Ratio] 16.3 % High 12.0-14.8 [facility] Comment on above: Performed By: #### A NA #### [facility] , #### PTH, CRP, CBC, ESR, URIC, CMP #### [address] Hematocrit (Bld) [Volume fraction] 40.2 % Normal 38.8-50.0 [facility] Comment on above: Performed By: #### A NA #### [facility] , #### PTH, CRP, CBC, ESR, URIC, CMP #### [address] Hemoglobin (Bld) [Mass/Vol] 13.3 g/dL Normal 13.0-17.0 [facility] Comment on above: Performed By: #### A NA #### [facility] , #### PTH, CRP, CBC, ESR, URIC, CMP #### [address] Lymphocytes (Bld) [#/Vol] 2.5 10*3/uL Normal 1.00-4.8 [facility] Comment on above: Performed By: #### A NA #### [facility] , #### PTH, CRP, CBC, ESR, URIC, CMP #### [address] Lymphocytes/100 WBC (Bld) 31.3 % Normal . [facility] Comment on above: Performed By: #### A NA #### [facility] , #### PTH, CRP, CBC, ESR, URIC, CMP #### [address] MCH (RBC) [Entitic mass] 29.4 pg Normal 27.5-35.2 [facility] Comment on above: Performed By: #### A NA #### [facility] , #### PTH, CRP, CBC, ESR, URIC, CMP #### [address] MCV (RBC) [Entitic vol] 88.7 fL Normal 83.5-101 [facility] Comment on above: Performed By: #### A NA #### [facility] , #### PTH, CRP, CBC, ESR, URIC, CMP #### [address] Mean Corpuscular HGB Conc 33.1 g/dL Normal 32.5-35.6 [facility] Comment on above: Performed By: #### A NA #### [facility] , #### PTH, CRP, CBC, ESR, URIC, CMP #### [address] Monocytes (Bld) [#/Vol] 1.0 10*3/uL High 0.0-0.8 [facility] Comment on above: Performed By: #### A NA #### [facility] , #### PTH, CRP, CBC, ESR, URIC, CMP #### [address] Monocytes/100 WBC (Bld) 12.9 % Normal . [facility] Comment on above: Performed By: #### A NA #### [facility] , #### PTH, CRP, CBC, ESR, URIC, CMP #### [place] [address] [place] Neutrophils (Bld) [#/Vol] 4.1 10*3/uL Normal 1.8-7.7 [facility] Comment on above: Performed By: #### A NA #### [facility] , #### PTH, CRP, CBC, ESR, URIC, CMP #### [place] [address] [place] Neutrophils/100 WBC (Bld) 50.5 % Normal . [facility] Comment on above: Performed By: #### A NA #### [facility] , #### PTH, CRP, CBC, ESR, URIC, CMP #### [place] [address] [place] NRBC% 0.0 /100{WBC} Normal 0-0.5 [facility] Comment on above: Performed By: #### A NA #### [facility] , #### PTH, CRP, CBC, ESR, URIC, CMP #### [address] Platelet mean volume (Bld) [Entitic vol] 8.7 fL Normal 6.6-10.1 [facility] Comment on above: Performed By: #### A NA #### [facility] , #### PTH, CRP, CBC, ESR, URIC, CMP #### [address] Platelets (Bld) [#/Vol] 285 10*3/uL Normal 150-450 [facility] Comment on above: Performed By: #### A NA #### [facility] , #### PTH, CRP, CBC, ESR, URIC, CMP #### [address] RBC (Bld) [#/Vol] 4.53 10*6/uL Normal 3.90-5.[address] [facility] Comment on above: Performed By: #### A NA #### [facility] , #### PTH, CRP, CBC, ESR, URIC, CMP #### [address] WBC (Bld) [#/Vol] 8.0 10*3/uL Normal 4.1-10.5 [facility] Comment on above: Performed By: #### A NA #### [facility] , #### PTH, CRP, CBC, ESR, URIC, CMP #### [facility] [address] [place] [address] Comprehensive Metabolic Pane claritza 12-03-2022 Albumin [Mass/Vol] 4.2 g/dL Normal 3.5-5.7 [facility] Comment on above: Performed By: #### A NA #### [facility] , #### PTH, CRP, CBC, ESR, URIC, CMP #### [address] Albumin/Globulin [Mass ratio] 1.3 {ratio} Normal [facility] Comment on above: Performed By: #### A NA #### [facility] , #### PTH, CRP, CBC, ESR, URIC, CMP #### [address] ALP [Catalytic activity/Vol] 69 U/L Normal 34-104 [facility] Comment on above: Performed By: #### A NA #### [facility] , #### PTH, CRP, CBC, ESR, URIC, CMP #### [address] ALT [Catalytic activity/Vol] 15 U/L Normal 7-52 [facility] Comment on above: Performed By: #### A NA #### [facility] , #### PTH, CRP, CBC, ESR, URIC, CMP #### [address] Anion gap [Moles/Vol] 9.9 mmol/L Normal 6.0-15.0 [facility] Comment on above: Performed By: #### A NA #### [facility] , #### PTH, CRP, CBC, ESR, URIC, CMP #### [facility] [address] [place] [address] [place] AST [Catalytic activity/Vol] 24 U/L Normal 13-39 [facility] Comment on above: Performed By: #### A NA #### [facility] , #### PTH, CRP, CBC, ESR, URIC, CMP #### [facility] [address] [place] [address] Bilirubin [Mass/Vol] 0.4 mg/dL Normal 0.3-1.0 [facility] Comment on above: Performed By: #### A NA #### [facility] , #### PTH, CRP, CBC, ESR, URIC, CMP #### [address] Calcium [Mass/Vol] 9.6 mg/dL Normal 8.6-10.3 [facility] Comment on above: Performed By: #### A NA #### [facility] , #### PTH, CRP, CBC, ESR, URIC, CMP #### [address] Chloride [Moles/Vol] 103 mmol/L Normal 98-107 [facility] Comment on above: Performed By: #### A NA #### [facility] , #### PTH, CRP, CBC, ESR, URIC, CMP #### [address] CO2 [Moles/Vol] 29.5 mmol/L Normal 21.0-31.0 [facility] Comment on above: Performed By: #### A NA #### [facility] , #### PTH, CRP, CBC, ESR, URIC, CMP #### [address] Creatinine [Mass/Vol] 1.06 mg/dL Normal 0.70-1.30 [facility] Comment on above: Performed By: #### A NA #### [facility] , #### PTH, CRP, CBC, ESR, URIC, CMP #### [address] GFR/1.73 sq M.predicted MDRD (S/P/Bld) [Vol rate/Area] mL/min/{1.73_m2} Normal [facility] Comment on above: Performed By: #### A NA #### [facility] , #### PTH, CRP, CBC, ESR, URIC, CMP #### [address] Globulin (S) [Mass/Vol] 3.2 g/dL Normal [facility] Comment on above: Performed By: #### A NA #### [facility] , #### PTH, CRP, CBC, ESR, URIC, CMP #### [address] Glucose [Mass/Vol] 81 mg/dL Normal 70-100 [facility] Comment on above: Result Comment: [facility] Glucose Reference Range is dependent on time and content of last meal. Glucose of more than 200 mg/dL in a nonstressed, ambulatory subject supports the diagnosis of Diabetes Mellitus. ADA recommended reference range Performed By: #### A NA #### [facility] , #### PTH, CRP, CBC, ESR, URIC, CMP #### [address] Potassium [Moles/Vol] 4.4 mmol/L Normal 3.5-5.1 [facility] Comment on above: Performed By: #### A NA #### [facility] , #### PTH, CRP, CBC, ESR, URIC, CMP #### [facility] [address] [place] [address] [place] Protein [Mass/Vol] 7.4 g/dL Normal 6.4-8.9 [facility] Comment on above: Performed By: #### A NA #### [facility] , #### PTH, CRP, CBC, ESR, URIC, CMP #### [place] [address] [place] Sodium [Moles/Vol] 138 mmol/L Normal 136-145 [facility] Comment on above: Performed By: #### A NA #### [facility] , #### PTH, CRP, CBC, ESR, URIC, CMP #### [address] Urea nitrogen [Mass/Vol] 19 mg/dL Normal 7-25 [facility] Comment on above: Performed By: #### A NA #### [facility] , #### PTH, CRP, CBC, ESR, URIC, CMP #### [facility] [address] [place] [address] Erythrocyte Sedimentation Ra nishant 12-03-2022 ESR (Bld) [Velocity] 43 mm/h High 0-19 [facility] Comment on above: Result Comment: PERF ORMED BY: [place] [address] PATHOLOGIST RN DOCUMENTATION ROMULO SERRA M.D. Performed By: #### A NA #### [facility] , #### PTH, CRP, CBC, ESR, URIC, CMP #### [address] Parathyroid Hormone Intacton 12-03-2022 Parathyroid Hormone Intact 34.1 pg/mL Normal 12-88 [facility] Comment on above: Result Comment: PERF ORMED BY: [place] [address] PATHOLOGIST RN DOCUMENTATION ROMULO SERRA M.D. Performed By: #### A NA #### [facility] , #### PTH, CRP, CBC, ESR, URIC, CMP #### [address] Uric Acidon 12-03-2022 Urate [Mass/Vol] 3.5 mg/dL Normal 2.4-7.6 [facility] Comment on above: Performed By: #### A NA #### [facility] , #### PTH, CRP, CBC, ESR, URIC, CMP #### [facility] [address] [place] [address] XR foot LT 2Von 12-03-2022 XR foot LT 2V [facility] Main [place] [address] [place] [address] XRay Report Signed Patient: Kristy Doherty MR#: [id number] 81 : 1955 Acct:[id number] Age/Sex: 67 / M ADM Date: 12/03/22 [...] Bonnie Grewal M.D.12/03/2022 4:56 PM Dictation Location: [place] [address] Transcribed By: [facility] 12/03/221655 Dictated By: Bonnie Grewal II, MD 12/03/221654 Signed By: 12/03/221655 Normal [facility] XR hand BI 2Von 12-03-2022 XR hand BI 2V [facility] [place] [place] [address] XRay Report Signed Patient: Kristy Doherty MR#: [id number] 81 : 1955 Acct:[id number] Age/Sex: 67 / M ADM Date: 12/03/22 Loc: ICXD Room: Type: [facility] CLI Attending Dr: Kristy Beatty MD Copies [...] Bonnie Grewal M.D.12/03/2022 5:29 PM Dictation Location: [facility] Transcribed By: SUSAN 12/03/221728 Dictated By: Bonnie Grewal II, MD 12/03/221650 Signed By: 12/03/221728 [facility] XR knee LT 2Von 12-03-2022 XR knee LT 2V [facility] [place] [address] [place] [address] XRay Report Signed Patient: Kristy Doherty MR#: [id number] 81 : 1955 Acct:[id number] Age/Sex: 67 / M ADM Date: 12/03/22 Loc: [facility] Room: Type: [facility] Attending Dr: Kristy Beatty MD Copies to: [...] Bonnie Grewal M.D.12/03/2022 4:54 PM Dictation Location: [facility] Transcribed By: SUSAN 12/03/221653 Dictated By: Bonnie Grewal II, MD 12/03/221652 Signed By: 12/03/221653 [facility] COLLIN by IFAon 11-04-2022 Antinuclear Antibodies, IFA Negative Normal [facility] Comment on above: Result Comment: Nega tive <1:80 Borderline 1:80 Positive >1:80 ICAP nomenclature: AC-0 For more information about Hep-2 cell patterns use ANApatterns.org, the official website for the International Consensus on Antinuclear Antibody (COLLIN) Patterns (ICAP). Performed By: #### C AILYN, BMP #### [facility] [address] [place] [address] Dr. Skylar Chadwick ANTISTREPTOLYSIN O AB (ASO)o n 11-03-2022 Antistreptolysin O Ab 326.2 IU/mL Critically high 0.0-200.0 [facility] Comment on above: Performed By: #### A SOAB #### [facility] [address] [place] [address] Dr. Skylar Chadwick RHEUMATOID FACTORon 11-04-19 RA Latex Turbid. 14.3 IU/mL Critically high <14.0 [facility] Comment on above: Performed By: #### C AILYN, BMP #### [facility] [address] [place] [address] Dr. Skylar Chadwick CBC AUTO DIFFon 11-02-2022 BASO # 0.1 103/ul Normal 0.0-0.1 [facility] Comment on above: Performed By: #### C AILYN, BMP #### [facility] [address] [place] [address] Dr. Skylar Chadwick Basophils/100 WBC (Bld) 0.7 % Normal 0.2-2.0 [facility] Comment on above: Performed By: #### C AILYN, BMP #### [facility] [address] [place] [address] Dr. Skylar Chadwick EO # 0.2 103/ul Normal 0.0-0.7 [facility] Comment on above: Performed By: #### C AILYN, BMP #### [facility] [address] [place] [address] Dr. Skylar Chadwick Eosinophils/100 WBC (Bld) 2.8 % Normal 0.9-7.0 [facility] Comment on above: Performed By: #### C AILYN, BMP #### [facility] [address] [place] [address] Dr. Skylar Chadwick Erythrocyte distribution width (RBC) [Ratio] 15.1 % Critically high 11.0-15.0 [facility] Comment on above: Performed By: #### C CARLOS ENRIQUEM, BMP #### [facility] [address] [place] [address] Dr. Skyalr Chadwick Hematocrit (Bld) [Volume fraction] 37.2 % Critically low 42.0-54.0 [facility] Comment on above: Performed By: #### C CARLOS ENRIQUEM, BMP #### [facility] [address] [place] [address] Dr. Skylar Chadwick Hemoglobin (Bld) [Mass/Vol] 12.2 g/dL Critically low 14.0-18.0 [facility] Comment on above: Performed By: #### C AILYN, BMP #### [facility] [address] [place] [address] Dr. Skylar Chadwick IG # 0.02 10e3/ul Normal 0.00-0.03 [facility] Comment on above: Performed By: #### C AILYN, BMP #### [facility] [address] [place] [address] Dr. Skylar Chadwick IG % 0.3 % Normal 0.0-0.5 [facility] Comment on above: Performed By: #### C AILYN, BMP #### [facility] [address] [place] [address] Dr. Skylar Chadwick LYMPH # 2.2 103/ul Normal 1.2-3.8 [facility] Comment on above: Performed By: #### C MADM, BMP #### [facility] [address] [place] [address] Dr. Skylar Chadwick Lymphocytes/100 WBC (Bld) 30.3 % Normal 20.5-60.0 [facility] Comment on above: Performed By: #### C MADM, BMP #### [facility] [address] [place] [address] Dr. Skylar Chadwick MANUAL DIFF REQ NO Normal [facility] Comment on above: Performed By: #### C MADM, BMP #### [facility] [address] [place] [address] Dr. Skylar Chadwick MCH (RBC) [Entitic mass] 29.3 pg Normal 25.9-34.0 [facility] Comment on above: Performed By: #### C MADM, BMP #### [facility] [address] [place] [address] Dr. Skylar Chadwick MCHC (RBC) [Mass/Vol] 32.8 g/dL Normal 29.9-35.2 [facility] Comment on above: Performed By: #### C MADM, BMP #### [facility] [address] [place] [address] Dr. Syklar Chadwick MCV (RBC) [Entitic vol] 89.2 fL Normal 80.0-94.0 [facility] Comment on above: Performed By: #### C MADM, BMP #### [facility] [address] [place] [address] Dr. Skylar Chadwick MONO # 0.8 103/ul Normal 0.3-0.8 [facility] Comment on above: Performed By: #### C MADM, BMP #### [facility] [address] [place] [address] Dr. Skylar Chadwick Monocytes/100 WBC (Bld) 10.9 % Normal 1.7-12.0 [facility] Comment on above: Performed By: #### C MADM, BMP #### [facility] [address] [place] [address] Dr. Skylar Chadwick NEUT # 4.0 103/ul Normal 1.4-6.5 [facility] Comment on above: Performed By: #### C MADM, BMP #### [facility] [address] [place] [address] Dr. Skylar Chadwick Neutrophils/100 WBC (Bld) 55.0 % Normal 43.0-75.0 [facility] Comment on above: Performed By: #### C MADM, BMP #### [facility] [address] [place] [address] Dr. Skylar Chadwick Platelet mean volume (Bld) [Entitic vol] 10.3 fL Normal 9.5-13.5 [facility] Comment on above: Performed By: #### C AILYN, BMP #### [facility] [address] [place] [address] [address] Syklar Chadwick PLT 289 103/ul Normal 150-450 [facility] Comment on above: Performed By: #### C CARLOS ENRIQUEM, BMP #### [facility] [address] [place] [address] [address] Skylar Chadwick RBC 4.17 106/ul Critically low 4.70-6.10 [facility] Comment on above: Performed By: #### C AILYN, BMP #### [facility] [address] [place] [address] Dr. Skylar Chadwick WBC 7.2 103/ul Normal 4.0-11.0 [facility] Comment on above: Performed By: #### C AILYN, BMP #### [facility] [address] [place] [address] Dr. Skylar Chadwick CRPon 11-02-2022 CRP 1.3 mg/dL Critically high <=1.0 [facility] Comment on above: Performed By: #### U EFRAÍN, CMP, CRP #### [facility] [address] [place] [address] Dr. Skylar Chadwick PROF 14(COMP METB)on 023 Albumin [Mass/Vol] 3.4 g/dL Normal 3.4-5.0 [facility] Comment on above: Performed By: #### U EFRAÍN, CMP, CRP #### [facility] [address] [place] [address] Dr. Skylar Chadwick Albumin/Globulin [Mass ratio] 0.7 {ratio} Normal [facility] Comment on above: Performed By: #### U EFRAÍN, CMP, CRP #### [facility] [address] [place] [address] Dr. Skylar Chadwick ALP [Catalytic activity/Vol] 72 U/L Normal 46-116 [facility] Comment on above: Performed By: #### U EFRAÍN, CMP, CRP #### [facility] [address] [address] [address] Skylar Chadwick ALT [Catalytic activity/Vol] 28 U/L Normal 16-63 [facility] Comment on above: Performed By: #### U EFRAÍN, CMP, CRP #### [facility] [address] [address] [address] Skylar Chadwick Anion gap [Moles/Vol] 9.9 mmol/L Normal [facility] Comment on above: Performed By: #### U EFRAÍN, CMP, CRP #### [facility] [address] [address] [address] Skylar Chadwick AST [Catalytic activity/Vol] 19 U/L Normal 15-37 [facility] Comment on above: Performed By: #### U EFRAÍN, CMP, CRP #### [facility] [address] [place] [address] Dr. Skylar Chadwick Bilirubin [Mass/Vol] 0.3 mg/dL Normal 0.2-1.0 [facility] Comment on above: Performed By: #### U EFRAÍN, CMP, CRP #### [facility] [address] [address] [address] Skylar Chadwick Calcium [Mass/Vol] 9.8 mg/dL Normal 8.5-10.1 [facility] Comment on above: Performed By: #### U EFRAÍN, CMP, CRP #### [facility] [address] [address] [address] Skylar Chadwick Chloride [Moles/Vol] 103 mmol/L Normal 98-107 [facility] Comment on above: Performed By: #### U EFRAÍN, CMP, CRP #### [facility] [address] [address] [address] Skylar Chadwick CO2 [Moles/Vol] 31.0 mmol/L Normal 21.0-32.0 [facility] Comment on above: Performed By: #### U EFRAÍN, CMP, CRP #### [facility] [address] [address] [address] Skylar Chadwick Creatinine [Mass/Vol] 1.14 mg/dL Normal 0.70-1.30 [facility] Comment on above: Performed By: #### U EFRAÍN, CMP, CRP #### [facility] [address] [address] [address] Skylar Chadwick EGFR-AF RWANDAN >60 Normal >=60 [facility] Comment on above: Performed By: #### U EFRAÍN, CMP, CRP #### [facility] [address] [address] [address] Skylar Chadwick EGFR-NON AF RWANDAN >60 Normal >=60 [facility] Comment on above: Performed By: #### U EFRAÍN, CMP, CRP #### [facility] [address] [address] [address] Skylar Chadwick Globulin (S) [Mass/Vol] 4.8 g/dL Normal [facility] Comment on above: Performed By: #### U EFRAÍN, CMP, CRP #### [facility] [address] [address] [address] Skylar Chadwick Glucose [Mass/Vol] 88 mg/dL Normal 74-106 [facility] Comment on above: Performed By: #### U EFRAÍN, CMP, CRP #### [facility] [address] [address] [address] Skylar Chadwick Potassium [Moles/Vol] 3.9 mmol/L Normal 3.5-5.1 [facility] Comment on above: Performed By: #### U EFRAÍN, CMP, CRP #### [facility] [address] [address] [address] Skylar Chadwick Protein [Mass/Vol] 8.2 g/dL Normal 6.4-8.2 [facility] Comment on above: Performed By: #### U EFRAÍN, CMP, CRP #### [facility] [address] [address] [address] Skylar Chadwick Sodium [Moles/Vol] 140 mmol/L Normal 136-145 [facility] Comment on above: Performed By: #### U EFRAÍN, CMP, CRP #### [facility] [address] [address] [address] Skylar Chadwick Urea nitrogen [Mass/Vol] 18.0 mg/dL Normal 7.0-18.0 [facility] Comment on above: Performed By: #### U EFRAÍN, CMP, CRP #### [facility] [address] [address] [address] Skylar Chadwick Urea nitrogen/Creatinine [Mass ratio] 15.8 mg/mg Normal [facility] Comment on above: Performed By: #### U EFRAÍN, CMP, CRP #### [facility] [address] [address] [address] Skylar Chadwick SED RATE WESTERGRENon 2022 SED RATE 67 mm/hr Critically high <=20 [facility] Comment on above: Performed By: #### C MADM, BMP #### [facility] [address] [address] [address] Skylar Chadwick URIC ACID SERUMon 11-02-2022 Urate [Mass/Vol] 3.3 mg/dL Critically low 3.5-7.2 [facility] Comment on above: Performed By: #### U EFRAÍN, CMP, CRP #### [facility] [address] [address] [address] Skylar Chadwick XR KNEE LT 3Von 11-02-2022 XR KNEE LT 3V EXAM: XR KNEE LT 3V HISTORY: Effusion of joint of left knee COMPARISON: None. TECHNIQUE: 3 views FINDINGS: There is no acute fracture or dislocation. No radiopaque foreign body. The soft tissues are unremarkable. IMPRESSION: No acute fracture or dislocation. Electronically authenticated by: BONNIE RODRIGUES Date: 2022-11-02 14:46 Normal [facility] ECHOCARDIO M/2D COMPLETEon 0 10-28-2022 ECHOCARDIO M/2D COMPLETE Patient: KRISTY DOHERTY Exam Date: 10/28/2022 : 1955 Gender:M Ordering : DR BORIS KIM M.D. Admission #: [id number] Family : Order #: [id number] CLICK HERE TO VIEW EXAM ECHOCARDIOGRAM REPORT [...] Boris Kim M.D. on 10/30/2022 at 19:19 Normal [facility] XR CHEST 2 Von 09-05-2022 XR [...] by: ASIF COLVIN Date: 2022-09-05 15:49 Normal [facility] ECHOCARDIO M/2D COMPLETEon 0 08-18-2022 ECHOCARDIO M/2D COMPLETE Patient: KRISTY DOHERTY Exam Date: 08/18/2022 : 1955 Gender:M Ordering : MILDRED LOGAN Admission #: [id number] Family : Order #: [id number] CLICK HERE TO VIEW EXAM ECHOCARDIOGRAM REPORT [...] Area (VTI): 2.22 cm2, 2.22 cm2 Deceleration [place]: 1.61 m/s2 Pressure Half-Time: 686.93 ms Peak [...] M.D. on 08/19/2022 at 17:24 Normal [facility] CARDIAC BONNIE 3-6on 2 CK [Catalytic activity/Vol] 231 U/L Normal 39-308 [facility] Comment on above: Performed By: #### C MREP #### [facility] [address] [place] [address] Dr. Skylar Chadwick CK.MB [Mass/Vol] 1.39 ng/mL Normal <=3.60 [facility] Comment on above: Performed By: #### C MREP #### [facility] [address] [address] [address] Skylar Chadwick HSTROP 41.4 pg/mL Normal 4.0-76.1 [facility] Comment on above: Result Comment: CUT- OFF POINTS HAVE BEEN ESTABLISHED BASED ON THE FOURTH UNIVERSAL DEFINITIONS OF MYOCARDIAL INFARCTION. THE UPPER REFERENCE LIMIT (URL) OF TROPONIN, DEFINED THE 99TH PERCENTILE OF cTnI DISTRIBUTION IN A REFERENCE POPULATION, HAS BEEN CONFIRMED THE DECISION THRESHOLD FOR DC DIAGNOSIS. Performed By: #### C MREP #### [facility] [address] [address] [address] Skylar Chadwick CK [Catalytic activity/Vol] 214 U/L Normal 39-308 [facility] Comment on above: Performed By: #### C MREP #### [facility] [address] [address] [address] Skylar Chadwick CK.MB [Mass/Vol] 1.37 ng/mL Normal <=3.60 [facility] Comment on above: Performed By: #### C MREP #### [facility] [address] [place] [address] Dr. Skylar Chadwick HSTROP 37.0 pg/mL Normal 4.0-76.1 [facility] Comment on above: Result Comment: CUT- OFF POINTS HAVE BEEN ESTABLISHED BASED ON THE FOURTH UNIVERSAL DEFINITIONS OF MYOCARDIAL INFARCTION. THE UPPER REFERENCE LIMIT (URL) OF TROPONIN, DEFINED THE 99TH PERCENTILE OF cTnI DISTRIBUTION IN A REFERENCE POPULATION, HAS BEEN CONFIRMED THE DECISION THRESHOLD FOR DC DIAGNOSIS. Performed By: #### C MREP #### [facility] [address] [place] [address] Dr. Skylar Chadwick CBC AUTO DIFFon 07-02-2022 BASO # 0.1 103/ul Normal 0.0-0.1 [facility] Comment on above: Performed By: #### C MADM, BMP #### [facility] [address] [place] [address] Dr. Skylar Chadwick Basophils/100 WBC (Bld) 1.3 % Normal 0.2-2.0 [facility] Comment on above: Performed By: #### C MADM, BMP #### [facility] [address] [place] [address] Dr. Skylar Chadwick EO # 0.6 103/ul Normal 0.0-0.7 [facility] Comment on above: Performed By: #### C MADM, BMP #### [facility] [address] [place] [address] Dr. Skylar Chadwick Eosinophils/100 WBC (Bld) 7.1 % Critically high 0.9-7.0 [facility] Comment on above: Performed By: #### C AILYN, BMP #### [facility] [address] [place] [address] Dr. Skylar Chadwick Erythrocyte distribution width (RBC) [Ratio] 13.0 % Normal 11.0-15.0 [facility] Comment on above: Performed By: #### C AILYN, BMP #### [facility] [address] [place] [address] Dr. Skylar Chadwick Hematocrit (Bld) [Volume fraction] 37.2 % Critically low 42.0-54.0 [facility] Comment on above: Performed By: #### C AILYN, BMP #### [facility] [address] [place] [address] Dr. Skylar Chadwick Hemoglobin (Bld) [Mass/Vol] 13.2 g/dL Critically low 14.0-18.0 [facility] Comment on above: Performed By: #### Ina ROBERTSON, BMP #### [facility] [address] [place] [address] Dr. Skylar Chadwick IG # 0.02 10e3/ul Normal 0.00-0.03 [facility] Comment on above: Performed By: #### Ina ROBERTSON, BMP #### [facility] [address] [place] [address] Dr. Skylar Chadwick IG % 0.3 % Normal 0.0-0.5 [facility] Comment on above: Performed By: #### C AILYN, BMP #### [facility] [address] [place] [address] Dr. Skylar Chadwick LYMPH # 2.2 103/ul Normal 1.2-3.8 [facility] Comment on above: Performed By: #### C AILYN, BMP #### [facility] [address] [place] [address] Dr. Skylar Chadwick Lymphocytes/100 WBC (Bld) 27.4 % Normal 20.5-60.0 [facility] Comment on above: Performed By: #### Ina ROBERTSON, BMP #### [facility] [address] [place] [address] Dr. Skylar Chadwick MANUAL DIFF REQ NO Normal [facility] Comment on above: Performed By: #### C AILYN, BMP #### [facility] [address] [place] [address] Dr. Skylar Chadwick MCH (RBC) [Entitic mass] 32.4 pg Normal 25.9-34.0 [facility] Comment on above: Performed By: #### C AILYN, BMP #### [facility] [address] [place] [address] Dr. Skylar Chadwick MCHC (RBC) [Mass/Vol] 35.5 g/dL Critically high 29.9-35.2 [facility] Comment on above: Performed By: #### C AILYN, BMP #### [facility] [address] [place] [address] Dr. Skylar Chadwick MCV (RBC) [Entitic vol] 91.2 fL Normal 80.0-94.0 [facility] Comment on above: Performed By: #### C AILYN, BMP #### [facility] [address] [place] [address] Dr. Skylar Chadwick MONO # 1.1 103/ul Critically high 0.3-0.8 [facility] Comment on above: Performed By: #### C AILYN, BMP #### [facility] [address] [place] [address] Dr. Skylar Chadwick Monocytes/100 WBC (Bld) 14.1 % Critically high 1.7-12.0 [facility] Comment on above: Performed By: #### C AILYN, BMP #### [facility] [address] [place] [address] Dr. Skylar Chadwick NEUT # 4.0 103/ul Normal 1.4-6.5 [facility] Comment on above: Performed By: #### C AILYN, BMP #### [facility] [address] [place] [address] Dr. Skylar Chadwick Neutrophils/100 WBC (Bld) 49.8 % Normal 43.0-75.0 [facility] Comment on above: Performed By: #### C MADM, BMP #### [facility] [address] [address] [address] Skylar Chadwick Platelet mean volume (Bld) [Entitic vol] 10.5 fL Normal 9.5-13.5 [facility] Comment on above: Performed By: #### C CARLOS ENRIQUEM, BMP #### [facility] [address] [address] [address] Skylar Chadwick PLT 159 103/ul Normal 150-450 [facility] Comment on above: Performed By: #### C CARLOS ENRIQUEM, BMP #### [facility] [address] [address] [address] Skylar Chadwick RBC 4.08 106/ul Critically low 4.70-6.10 [facility] Comment on above: Performed By: #### C AILYN, BMP #### [facility] [address] [place] [address] Dr. Skylar Chadwick WBC 8.0 103/ul Normal 4.0-11.0 [facility] Comment on above: Performed By: #### C AILYN, BMP #### [facility] [address] [address] [address] Skylar Chadwick Covid-19 PCR ([facility])on 06-18 SARS-CoV-2 (COVID-19) RNA DANDY+probe Ql (Unsp spec) Not detected Normal NOT DETECTED [facility] Comment on above: Result Comment: When [...] for this test is supported by the [place] of Health and Human Service's declaration that [...] longer be used). Performed By: #### C [facility] #### [facility] [address] [place] [address] Dr. Skylar Chadwick ECHOCARDIO M/2D COMPLETEon 1 09-02-2021 ECHOCARDIO M/2D COMPLETE Patient: KRISTY DOHERTY Exam Date: 07/02/2022 : 1955 Gender:M Ordering : EDDIE SISTER Admission #: [id number] Family : DR RUDY KING . Order #: [id number] CLICK HERE TO VIEW EXAM ECHOCARDIOGRAM REPORT [...] M.D. on 07/02/2022 at 14:11 Normal [facility] PROF CHEM 8 (BAS METB)on Anion gap [Moles/Vol] 8.4 mmol/L Normal [facility] Comment on above: Performed By: #### B MP #### [facility] [address] [address] [address] Skylar Chadwick Calcium [Mass/Vol] 8.3 mg/dL Critically low 8.5-10.1 [facility] Comment on above: Performed By: #### B MP #### [facility] [address] [address] [address] Skylar Chadwick Chloride [Moles/Vol] 97 mmol/L Critically low 98-107 [facility] Comment on above: Performed By: #### B MP #### [facility] [address] [address] [address] Skylar Chadwick CO2 [Moles/Vol] 32.9 mmol/L Critically high 21.0-32.0 [facility] Comment on above: Performed By: #### B MP #### [facility] [address] [place] [address] Dr. Skylar Chadwick Creatinine [Mass/Vol] 1.08 mg/dL Normal 0.70-1.30 [facility] Comment on above: Performed By: #### B MP #### [facility] [address] [address] [address] Skylar Chadwick EGFR-AF RWANDAN >60 Normal >=60 [facility] Comment on above: Performed By: #### B MP #### [facility] [address] [address] [address] Skylar Chadwick EGFR-NON AF RWANDAN >60 Normal >=60 [facility] Comment on above: Performed By: #### B MP #### [facility] [address] [place] [address] Dr. Skylar Chadwick Glucose [Mass/Vol] 114 mg/dL Critically high 74-106 [facility] Comment on above: Performed By: #### B MP #### [facility] [address] [address] [address] Skylar Chadwick Potassium [Moles/Vol] 3.3 mmol/L Critically low 3.5-5.1 [facility] Comment on above: Performed By: #### B MP #### [facility] [address] [address] [address] Skylar Chadwick Sodium [Moles/Vol] 135 mmol/L Critically low 136-145 [facility] Comment on above: Performed By: #### B MP #### [facility] [address] [address] [address] Skylar Chadwick Urea nitrogen [Mass/Vol] 13.0 mg/dL Normal 7.0-18.0 [facility] Comment on above: Performed By: #### B MP #### [facility] [address] [address] [address] Skylar Chadwick Urea nitrogen/Creatinine [Mass ratio] 12.0 mg/mg Normal [facility] Comment on above: Performed By: #### B MP #### [facility] [address] [address] [address] Skylar Chadwick Anion gap [Moles/Vol] 8.6 mmol/L Normal [facility] Comment on above: Performed By: #### C AILYN, BMP #### [facility] [address] [address] [address] Skylar Chadwick Calcium [Mass/Vol] 8.6 mg/dL Normal 8.5-10.1 [facility] Comment on above: Performed By: #### C MADM, BMP #### [facility] [address] [address] [address] Skylar Chadwick Chloride [Moles/Vol] 96 mmol/L Critically low 98-107 [facility] Comment on above: Performed By: #### C MADM, BMP #### [facility] [address] [address] [address] Skylar Chadwick CO2 [Moles/Vol] 34.2 mmol/L Critically high 21.0-32.0 [facility] Comment on above: Performed By: #### C MADM, BMP #### [facility] [address] [address] [address] Skylar Chadwick Creatinine [Mass/Vol] 1.05 mg/dL Normal 0.70-1.30 [facility] Comment on above: Performed By: #### C MADM, BMP #### [facility] [address] [address] [address] Skylar Chadwick EGFR-AF RWANDAN >60 Normal >=60 [facility] Comment on above: Performed By: #### C MADM, BMP #### [facility] [address] [address] [address] Skylar Chadwick EGFR-NON AF RWANDAN >60 Normal >=60 [facility] Comment on above: Performed By: #### C MADM, BMP #### [facility] [address] [address] [address] Skylar Chadwick Glucose [Mass/Vol] 113 mg/dL Critically high 74-106 [facility] Comment on above: Performed By: #### C MADM, BMP #### [facility] [address] [address] [address] Skylar Chadwick Potassium [Moles/Vol] 2.8 mmol/L Critically low 3.5-5.1 [facility] Comment on above: Performed By: #### C MADM, BMP #### [facility] [address] [address] [address] Skylar Chadwick Sodium [Moles/Vol] 136 mmol/L Normal 136-145 [facility] Comment on above: Performed By: #### C MADM, BMP #### [facility] [address] [address] [address] Skylar Chadwick Urea nitrogen [Mass/Vol] 10.0 mg/dL Normal 7.0-18.0 [facility] Comment on above: Performed By: #### C MADM, BMP #### [facility] [address] [address] [address] Skylar Chadwick Urea nitrogen/Creatinine [Mass ratio] 9.5 mg/mg Normal [facility] Comment on above: Performed By: #### C CARLOS ENRIQUE, [facility] #### [facility] [address] [address] [address] Skylar Chadwick CAROTID ART BILon 022 US CAROTID ART ELEN EXAMINATION: US [...] ASIF JOHN Date: 2022-07-02 11:23 Normal [facility] CARDIAC BONNIE ADMITon 022 CK [Catalytic activity/Vol] 201 U/L Normal 39-308 [facility] Comment on above: Performed By: #### C AILYN, BMP #### [facility] [address] [place], [place] [address] Dr. Skylar Chadwick CK.MB [Mass/Vol] 1.31 ng/mL Normal <=3.60 [facility] Comment on above: Performed By: #### C AILYN, BMP #### [facility] [address] [place], [place] [address] Dr. Skylar Chadwick HSTROP 34.8 pg/mL Normal 4.0-76.1 [facility] Comment on above: Result Comment: CUT- OFF POINTS HAVE BEEN ESTABLISHED BASED ON THE FOURTH UNIVERSAL DEFINITIONS OF MYOCARDIAL INFARCTION. THE UPPER REFERENCE LIMIT (URL) OF TROPONIN, DEFINED THE 99TH PERCENTILE OF cTnI DISTRIBUTION IN A REFERENCE POPULATION, HAS BEEN CONFIRMED THE DECISION THRESHOLD FOR DC DIAGNOSIS. Performed By: #### C MADM, BMP #### [facility] [address] [address] [address] Skylar Chadwick NHAN 336 ng/mL Critically high 16-96 [facility] Comment on above: Performed By: #### C MADM, BMP #### [facility] [address] [address] [address] Skylar Chadwick CBC AUTO DIFFon 07-01-2022 BASO # 0.1 103/ul Normal 0.0-0.1 [facility] Comment on above: Performed By: #### C BC #### [facility] [address] [address] [address] Skylar Chadwick Basophils/100 WBC (Bld) 1.2 % Normal 0.2-2.0 [facility] Comment on above: Performed By: #### C BC #### [facility] [address] [place] [address] Dr. Skylar Chadwick EO # 0.5 103/ul Normal 0.0-0.7 [facility] Comment on above: Performed By: #### C BC #### [facility] [address] [address] [address] Skylar Chadwick Eosinophils/100 WBC (Bld) 6.3 % Normal 0.9-7.0 [facility] Comment on above: Performed By: #### C BC #### [facility] [address] [address] [address] Skylar Chadwick Erythrocyte distribution width (RBC) [Ratio] 12.9 % Normal 11.0-15.0 [facility] Comment on above: Performed By: #### C BC #### [facility] [address] [place] [address] Dr. Skylar Chadwick Hematocrit (Bld) [Volume fraction] 38.0 % Critically low 42.0-54.0 [facility] Comment on above: Performed By: #### C BC #### [facility] [address] [address] [address] Skylar Chadwick Hemoglobin (Bld) [Mass/Vol] 13.5 g/dL Critically low 14.0-18.0 [facility] Comment on above: Performed By: #### C BC #### [facility] [address] [place] [address] Dr. Skylar Chadwick IG # 0.02 10e3/ul Normal 0.00-0.03 [facility] Comment on above: Performed By: #### C BC #### [facility] [address] [place] [address] Dr. Skylar Chadwick IG % 0.2 % Normal 0.0-0.5 [facility] Comment on above: Performed By: #### C BC #### [facility] [address] [place] [address] Dr. Skylar Chadwcik LYMPH # 2.6 103/ul Normal 1.2-3.8 [facility] Comment on above: Performed By: #### C BC #### [facility] [address] [place] [address] Dr. Skylar Chadwick Lymphocytes/100 WBC (Bld) 30.5 % Normal 20.5-60.0 [facility] Comment on above: Performed By: #### C BC #### [facility] [address] [place] [address] Dr. Skylar Chadwick MANUAL DIFF REQ NO Normal [facility] Comment on above: Performed By: #### C BC #### [facility] [address] [place] [address] Dr. Skylar Chadwick MCH (RBC) [Entitic mass] 32.2 pg Normal 25.9-34.0 [facility] Comment on above: Performed By: #### C BC #### [facility] [address] [place] [address] Dr. Skylar Chadwick MCHC (RBC) [Mass/Vol] 35.5 g/dL Critically high 29.9-35.2 [facility] Comment on above: Performed By: #### C BC #### [facility] [address] [place] [address] Dr. Skylar Chadwick MCV (RBC) [Entitic vol] 90.7 fL Normal 80.0-94.0 [facility] Comment on above: Performed By: #### C BC #### [facility] [address] [address] [address] Skylar Chadwick MONO # 1.2 103/ul Critically high 0.3-0.8 [facility] Comment on above: Performed By: #### C BC #### [facility] [address] [address] [address] Skylar Chadwick Monocytes/100 WBC (Bld) 14.3 % Critically high 1.7-12.0 [facility] Comment on above: Performed By: #### C BC #### [facility] [address] [place] [address] Dr. Skylar Chadwick NEUT # 4.0 103/ul Normal 1.4-6.5 [facility] Comment on above: Performed By: #### C BC #### [facility] [address] [place] [address] Dr. Skylar Chadwick Neutrophils/100 WBC (Bld) 47.5 % Normal 43.0-75.0 [facility] Comment on above: Performed By: #### C BC #### [facility] [address] [place] [address] Dr. Skylar Chadwick Platelet mean volume (Bld) [Entitic vol] 10.4 fL Normal 9.5-13.5 [facility] Comment on above: Performed By: #### C BC #### [facility] [address] [place] [address] Dr. Skylar Chadwick PLT 175 103/ul Normal 150-450 [facility] Comment on above: Performed By: #### C BC #### [facility] [address] [place] [address] Dr. Skylar Chadwick RBC 4.19 106/ul Critically low 4.70-6.10 [facility] Comment on above: Performed By: #### C BC #### [facility] [address] [place] [address] Dr. Skylar Chadwick WBC 8.4 103/ul Normal 4.0-11.0 [facility] Comment on above: Performed By: #### C BC #### [facility] [address] CSPINE WO CONon [...] by: BRIAN BRADSHAW Date: 2022-07-01 21:26 [address] [facility] [address] HEAD WO CONon 07-01-2022 CT [...] of the sinuses are not in the [id number]-rv-kizd. The middle ears are aerated the mastoid [...] ADIEL KERN Date: 2022-07-01 20:44 Normal [facility] D-DIMERon 07-01-2022 D-DIMER 0.35 mg/L FEU Normal <=0.59 [facility] Comment on above: Performed By: #### C AILYN, BMP #### [facility] [address] [place] [address] Dr. Skylar Chadwick D-DIMER COMMENTS SEE BELOW Normal [facility] Comment on above: Result Comment: Incr [...] Performed By: #### C AILYN, BMP #### [facility] [address] [place] [address] Dr. Skylar Chadwick PROF CHEM 8 (BAS METB)on Anion gap [Moles/Vol] 13.5 mmol/L Normal [facility] Comment on above: Performed By: #### C AILYN, BMP #### [facility] [address] [place] [address] Dr. Skylar Chadwick Calcium [Mass/Vol] 8.8 mg/dL Normal 8.5-10.1 [facility] Comment on above: Performed By: #### C AILYN, BMP #### [facility] [address] [place] [address] Dr. Skylar Chadwick Chloride [Moles/Vol] 94 mmol/L Critically low 98-107 [facility] Comment on above: Performed By: #### C AILYN, BMP #### [facility] [address] [place] [address] Dr. Skylar Chadwick CO2 [Moles/Vol] 29.0 mmol/L Normal 21.0-32.0 [facility] Comment on above: Performed By: #### C MADM, BMP #### [facility] [address] [address] [address] Skylar Chadwick Creatinine [Mass/Vol] 1.03 mg/dL Normal 0.70-1.30 [facility] Comment on above: Performed By: #### C MADM, BMP #### [facility] [address] [address] [address] Skylar Chadwick EGFR-AF RWANDAN >60 Normal >=60 [facility] Comment on above: Performed By: #### C CARLOS ENRIQUEM, BMP #### [facility] [address] [place] [address] Dr. Skylar Chadwick EGFR-NON AF RWANDAN >60 Normal >=60 [facility] Comment on above: Performed By: #### C CARLOS ENRIQUEM, BMP #### [facility] [address] [address] [address] Skylar Chadwick Glucose [Mass/Vol] 111 mg/dL Critically high 74-106 T [facility] Comment on above: Performed By: #### C CARLOS ENRIQUEM, BMP #### [facility] [address] [address] [address] Skylar Chadwick Potassium [Moles/Vol] 2.5 mmol/L Critically low 3.5-5.1 [facility] Comment on above: Performed By: #### C CARLOS ENRIQUEM, BMP #### [facility] [address] [address] [address] Skylar Chadwick Sodium [Moles/Vol] 134 mmol/L Critically low 136-145 Th [facility] Comment on above: Performed By: #### C MADM, BMP #### [facility] [address] [place] [address] Dr. Skylar Chadwick Urea nitrogen [Mass/Vol] 12.0 mg/dL Normal 7.0-18.0 [facility] Comment on above: Performed By: #### C MADM, BMP #### [facility] [address] [place] [address] Dr. Skylar Chadwick Urea nitrogen/Creatinine [Mass ratio] 11.7 mg/mg Normal [facility] Comment on above: Performed By: #### C CARLOS ENRIQUE, [facility] #### [facility] [address] [place] [address] Skylar Chadwick XR CHEST 1 Von [...] by: SOBEIDA MONCADA Date: 2022-07-01 20:44 Normal [facility] Outside Colonoscopyon 2021 Outside Colonoscopy [id number] D:127 Normal [place] RAD - MISCon 01-29-2022 RAD - MISC [id number] D:127 Normal [place] XR COLON AIR CONTR.on 2021 XR COLON AIR CONTR. EXAMINATION: XR COLO N AIR CONTR. HISTORY: Colonoscopy abnormal COMPARISON: No relevant comparison available. FLUOROSCOPY TIME: Fluoro time measures 3 minutes 40 seconds and 22 images were obtained. TECHNIQUE: An air contrast barium enema examination was performed in the usual manner. No enrichment director abdominal radiograph was performed. Standard level fluoroscopic mode of operation utilized. FINDINGS: COLON: No focal obstruction, mass or stricture. Mild diverticulosis distal descending and proximal sigmoid colon. OTHER: Negative. IMPRESSION: Mild diverticulosis, otherwise normal exam Electronically authenticated by: ASIF JOHN Date: 2022-01-28 14:34 Normal [facility] Pre-Certification Formon Pre-Certification Form [id number] CD:127 Normal [place] Consent for Procedure/Surger yon 01-08-2022 Consent for Procedure/Surgery [id number] D:127 Normal [place] Ambulatory Visit Summaryon 0 01-07-2022 Ambulatory Visit [...] cancer Seasonal allergic rhinitis Vitamin D deficiency [facility] Physician Referralon 022 Physician Referral [id number] D:127 Normal [facility] Encounters Encounter Date Encounter Type Care Provider Facility Start: 01-06-2024 End: 01-06-2024 ambulatory [facility] Start: 01-05-2024 ambulatory BEBA [facility] Start: 01-05-2024 Encounter for preprocedural cardiovascular examination [facility] Start: 11-30-2023 ambulatory [facility] Start: 11-02-2023 End: 11-02-2023 ambulatory [facility] Start: 10-13-2023 ambulatory [facility] Start: 07-22-2023 End: 07-22-2023 ambulatory RUDY KING Not Available Start: 06-29-2023 End: 06-29-2023 [facility] Start: 05-11-2023 End: 05-11-2023 ambulatory [facility] Start: 02-19-2023 End: 02-19-2023 ambulatory [facility] Start: 12-03-2022 End: 12-03-2022 ambulatory Kristy Beatty Facility:[facility] Start: 11-10-[address] RUDY KING Facil [...] DR RUDY KING Facility:[facility] Start: 07-02-2022 End: 12-15-[address] RUDY KING Facility:[facility] Start: 01-28-2022 End: 01-28-[address] RUDY KING Facility:[facility] Payers Date Payer Category Payer Self-pay 1959 Medicare [id number] 1959 Unknown [id number] 1955 Unknown [id number] 2.16.84 [id number] 1955 Unknown [id number] 2.16.84 [id number] 1955 Unknown [id number] 2.16.84 [id number] 1955 Unknown [id number] 2.16.84 0.1.513763.3.579.2.593 1955 Unknown [id number] 2.16.84 0.1.172275.3.579.2.593 1955 Unknown [id number] 2.16.84 0.1.545101.3.579.2.593 1955 Unknown [id number] 2.16.84 0.1.817956.3.579.2.593 1955 Unknown [id number] 2.16.84 0.1.523215.3.579.2.593 1955 Unknown [id number] 2.16.84 0.1.732683.3.579.2.593 1955 Unknown [id number] 2.16.84 0.1.269711.3.579.2.593 1955 Unknown [id number] 2.16.840 .[id number] Unknown [id number] 2.16.8 [id number] Clinical Notes 01-07-2022 to 01-06-2024 Note Date & Type Note Facility 01-06-2024 Note Script for liver fun ction and lipid levels given to pt Continue statin [facility] 01-06-2024 Note Congestive heart vigneshmike davila remains stable [facility] 01-06-2024 Note Patient here for 6 m o follow up chronic systolic heart failure, CAD, PAF, hypertension, and NICM s/p ICD. Had echo last month and device interrogation in October 2023. No recent labs. Says he's always SOB w/ exertion. Denies chest pain, palpitations, lightheadedness/syncope, and bleeding on Eliquis. Review of Systems Cardiovascular: Positive for dyspnea on exertion. Hematologic/Lymphatic: Bruises/bleeds easily. Musculoskeletal: Positive for arthritis, back pain and myalgias. All other systems reviewed and are negative. [facility] 01-06-2024 Note [facility] CARDIOLOGY PROGR ESS NOTE HPI: Kristy Doherty is a 68 y.o. male here for routine 6 month F/U HPI 68 y.o. male here for chronic systolic hf, HTN, syncope, AICD, mild CAD. Patient here for 6 mo follow up chronic systolic heart failure, CAD, PAF, hypertension, and NICM s/p ICD. Had echo last month and device interrogation in October 2023. No recent labs. Says he's always SOB w/ exertion- no worse than usual and denied orthopnea. Denies chest pain, palpitations, lightheadedness/syncope, and bleeding on Eliquis. Review of Systems Cardiovascular: Positive for dyspnea on exertion. Hematologic/Lymphatic: Bruises/bleeds easily. Musculoskeletal: Positive for arthritis, back pain and myalgias. All other systems reviewed and are negative. Previous HPI 11/30/22 He is a 67-year-old man who is seen in follow-up for recent onset systolic heart failure. He has prior history of hypertension. In June 2022 he was admitted to the [facility] with syncope and echocardiogram showed new onset systolic heart failure with ejection fraction of 25%. Carotid ultrasound showed no significant stenosis. CT head was negative for intracranial pathology. He ended up being transferred to [facility] and underwent carotid catheterization that showed [...] rhythm strips. He then underwent a dual-chamber [employer] ICD placement on 09/04/2022. today he reports that he has been doing well. He has had no recurrence of syncope. He denies chest pain. He has no shortness of breath on exertion. No leg edema. Visit Vitals BP 128/77 (BP Location: Left arm, Patient Position: Sitting) Pulse 76 Ht 1.727 m (5' 8 ) Wt 87.5 kg (193 lb) SpO2 96% BMI 29.35 kg/m??? Smoking Status Former BSA 2.05 m??? No Known Allergies Medications: Current Outpatient Medications on File Prior to Visit Medication Sig Dispense Refill albuterol 90 mcg/actuation inhaler Inhale 2 puffs every 4 (four) hours if needed for wheezing. allopurinol (Zyloprim) 300 mg tablet Take 300 mg by mouth in the morning. apixaban (Eliquis) 5 mg tablet Take 1 tablet (5 mg) by mouth in the morning and at bedtime. 180 tablet 3 atorvastatin (Lipitor) 40 mg tablet take 1 tablet by mouth at bedtime 90 tablet 3 dapagliflozin propanediol (Farxiga) 10 mg Take 1 tablet (10 mg) by mouth once daily as directed. 90 tablet 3 Dupixent Syringe 300 mg/2 mL syringe injection fluticasone (Flonase) 50 mcg/actuation nasal spray Administer 2 sprays into each nostril in the morning. Shake gently. Before first use, prime pump. After use, clean tip and replace cap. fluticasone propion-salmeteroL (Advair Diskus) 500-50 mcg/dose diskus inhaler inhale 1 puff by mouth and INTO THE LUNGS twice a day metoprolol succinate XL (Toprol-XL) 50 mg 24 hr tablet Take 1 tablet (50 mg) by mouth in the morning. Do not crush or chew. 90 tablet 3 sacubitril-valsartan (Entresto) 49-51 mg tablet Take 1 tablet by mouth in the morning and at bedtime. 180 tablet 3 spironolactone (Aldactone) 25 mg tablet Take 1 tablet (25 mg) by mouth in the morning. 90 tablet 3 No current facility-administered medications on [...] General: No focal deficit present. Mental Status: he is alert and oriented to person, place, and time. Psychiatric: Mood and Affect: Mood normal. Behavior: Behavior normal. Thought Content: Thought content normal. Judgment: Judgment normal. Labs: 07/29/23- reviewed with pt CBC stable Renal function normal K+ and NA normal Last lab values have been reviewed CV Testing: rev (more content not included)... [facility] 01-06-2024 Note Coronary artery dise ase is stable Continue GDMT- lipitor, toprol continue risk factor modifications- heart healthy diet, regular exercise as tolerated and continue all medications. [facility] 01-06-2024 Note [facility] II- currently E F improved from 25-30% to 40% Remains euvolemic and stable Continue GDMT- lipitor, farxiga, toprol, entresto and aldactone Diuretic therapy- continue farxiga Monitor daily weights, I&O, fluid restriction 1.5-2L/day, renal function and electrolytes- Currently stable - improved EF- continue all medications [facility] 06-29-2023 Note [place] [facility] Subjective Kristy Doherty is a 67 y.o. [...] Syncope and collapse Coronary artery disease involving pokagon coronary artery of pokagon heart without angina pectoris Chronic systolic heart [...] per week Comment: occasional Drug use: Never MAGGIE Kristy is seen in follow up. He is a 67-year-old man with systolic heart failure. He has prior history of hypertension. In June 2022 he was admitted to the [facility] with syncope and echocardiogram showed new onset systolic heart failure with ejection fraction of 25%. Carotid ultrasound showed no significant stenosis. CT head was negative for intracranial pathology. He ended up being transferred to [facility] and underwent cardiac catheterization that showed [...] rhythm strips. He then underwent a dual-chamber [employer] ICD placement on 09/04/2022. He was [...] 2 Dupixent Syring (more content not included)... [facility] 05-11-2023 Note .[facility] Note [place] Reason for follow up: Afib on device [...] and collapse. He was recently admitted to [facility] for syncope and had a TTE which show new systolic heart failure with EF 25% with global hypokinesis. He had no prior symptoms to this event. EKG showed PVCs and PACs. He had bilateral carotid artery ultrasound which should 0-49% flow stenosis. CT head negative for intracranial concerns. He was transferred to [facility] for heart cath He does drink [...] Asthma 07/29/2012 CHF (congestive heart failure) (CMS/HCC) Coronary artery disease History of malignant neoplasm [...] wheezing, no ral (more content not included)... [facility] 02-19-2023 Note No DFT since implant ation RTC q 6 months of device interrogation and pt is due for interrogation this march [facility] 02-19-2023 Note Continue statin [facility] 02-19-2023 Note As above [facility] 02-19-2023 Note Hypertension is well controlled Continue all meds Renal function has been stable [facility] 02-19-2023 Note Patient here per car diac rehab to discuss possible titrating up on Entresto. He has no cardia symptoms whatsoever. Feels great. Review of Systems All other systems reviewed and are negative. [facility] 02-19-2023 Note [facility]TP CARDIOLOGY PROGR ESS [...] June 2022 he was admitted to the [facility] with syncope and echocardiogram showed new onset systolic heart failure with ejection fraction of 25%. Carotid ultrasound showed no significant stenosis. CT head was negative for intracranial pathology. He ended up being transferred to [facility] and underwent carotid catheterization that showed [...] rhythm strips. He then underwent a dual-chamber [employer] ICD placement on 09/04/2022. today he [...] pressures. Echocardiogram 08/18/2022: (more content not included)... [facility] 02-19-2023 Note Coronary artery dise ase is stable Continue GDMT- ASA lipitor and toprol- Pt tolerating cardiac rehab well and states he has 1 more week of rehab continue risk factor modifications- heart healthy diet, regular exercise as tolerated and continue all medications. [facility] 02-19-2023 Note [facility] II- currently e uvolemic without exacerbation Continue GDMT- ASA, lipitor, toprol, farxiga, aldactone and will increase entresto to 49-51 mg bid Repeat BMP in 1 week to assess renal function and electrolyes Diuretic therapy- farxiga- pt is euvolemic currently Monitor daily weights, I&O, fluid restriction 1.5-2L/day, renal function and electrolytes- [facility] 08-18-2022 Note PROCEDURE: XR FOOT L [...] authenticated by: BRIAN BRADSHAW Date: 2022-08-18 15:43 [facility] 08-04-2022 Note PROCEDURE: XR FOOT L [...] authenticated by: ASIF JOHN Date: 2022-08-04 08:48 [facility] 01-28-2022 Note OPERATIVE NOTE OPERATION DATE: 01/28/2022 [...] in 10 years. CC: Rudy King M.D. [facility] Signed and Approved by: DR RAVI GERONIMO . 01/30/2022 12:35:00 [facility] 01-07-2022 Note Chief Complaint consultation for [...] Brother. Primary malignant neoplasm of prostate: Brother. [place] Comment on above: Result Comment: Elec tronically [...] content) DATE CREATED AUTHOR 02/04/2022 Jm Cates [facility] DATE CREATED AUTHOR AUTHOR'S ORGANIZ ATION 11/27/2022 [facility] DATE CREATED AUTHOR AUTHOR'S ORGANIZ ATION 12/25/2022 [facility] DATE CREATED AUTHOR AUTHOR'S ORGANIZ ATION 07/24/2023 [facility] DATE CREATED AUTHOR AUTHOR'S ORGANIZ ATION 01/07/2024 [facility] FOR RECORDS PERTAINING TO PATIENTS WHO ARE [...] BE BASED ON THE PRIMARY CLINICAL RECORDS. [employer] provides no warranty or guarantee of the accuracy or completeness of information in this document.
[2024-01-17 10:13] LABS: Basophils Absolute Auto 0.1 10^3/uL (0.0-0.1); Basophils Percent Auto 1.6 % (0.2-2.0); Eosinophils Absolute Auto 0.2 10^3/uL (0.0-0.7); Eosinophils Percent Auto 4.4 % (0.9-7.0); Hematocrit 41.8 % (42.0-54.0); Hemoglobin 13.9 g/dL (14.0-18.0); Immature Granulocytes Abs Auto 0.01 10^3/uL (0.00-0.03); Immature Granulocytes Pct Auto 0.2 % (0.0-0.5); Lymphocytes Percent Auto 40.4 % (20.5-60.0); Mean Corpuscular HGB Conc 33.3 g/dL (29.9-35.2); Mean Corpuscular Volume 96.3 fL (80.0-94.0); Mean Platelet Volume 10.6 fL (9.5-13.5); Monocytes Absolute Auto 0.8 10^3/uL (0.3-0.8); Monocytes Percent Auto 16.6 % (1.7-12.0); Neutrophils Absolute Auto 1.8 10^3/uL (1.4-6.5); Neutrophils Percent Auto 36.8 % (43.0-75.0); Platelet Count 166 10^3/uL (150-450); Red Blood Count 4.34 10^6/uL (4.70-6.10); Red Cell Distribution Width 13.2 % (11.0-15.0)
[2024-01-17 11:28] LABS: Alanine Aminotransferase 109 U/L (16-63); Albumin Level 3.9 g/dL (3.4-5.0); Alkaline Phosphatase 59 U/L (46-116); Anion Gap 13.4; Aspartate Amino Transferase 106 U/L (15-37); BUN Creatinine Ratio 10.2; Bilirubin Total 0.5 mg/dL (0.2-1.0); Calcium 9.4 mg/dL (8.5-10.1); Carbon Dioxide 28.5 mmol/L (21.0-32.0); Chloride 101 mmol/L (98-107); Chol HDL Ratio 1.5; Cholesterol 138 mg/dL (<=200); Estimated GFR (African America >60 (>=60); Estimated GFR (Non-African Ame >60 (>=60); Globulin 3.9 g/dL; Glucose 112 mg/dL (74-106); HDL Cholesterol 92 mg/dL (40-60); Potassium 3.9 mmol/L (3.5-5.1); Sodium 139 mmol/L (136-145); Total Protein 7.8 g/dL (6.4-8.2); Triglycerides 49 mg/dL (<=150); VLDL CHOLESTEROL 9.8 mg/dL
== END 2024-01-17 09:43 | disposition home or self-care (01) ==
LOC: LAB 09:43
PROVIDERS: PCP Family Medicine; Visit Provider Nurse Practitioner
DX: I25.10 Atherosclerotic heart disease of native coronary artery without angina pectoris (principal); I50.22 Chronic systolic (congestive) heart failure
CPT/HCPCS: 36415; 80053; 80061; 85025

== ENCOUNTER 2024-08-16 09:19 | Outpatient (OUT) | payer MEDICARE, SELFPAY ==
--- OUTSIDE RECORDS SUMMARY | 2024-08-16 09:25 | XMS_ITS | CCD ---
Author Organization [facility] [employer] Care Team Providers Care Processing Archivist Name Role Phone JUDY, DR ESCALANTE Attending [...] Unavailable ZIEBER, DR BRIAN Bernstein Consulting Unavailable KAE GOMEZ Attending Unavailable KAE GOMEZ Admitting Unavailable JASONKAE VICKERS Consulting Unavailable BOBO RAYMOND Attending Unavailable BOBO RAYMOND Admitting Unavailable ASIF COLVIN Consulting Unavailable NADERER, DR RUDY Simpson Primary Care Unavailable BOBO RAYMOND Consulting Unavailable MOUKARBEL, DR ESCALANTE Consulting Unavailable MOUKARBEL, DR ESCALANTE Attending Unavailable MOUKARBEL, DR ESCALANTE Admitting Unavailable NADERER, DR RUDY Simpson Primary Care Unavailable AICHHOLZ, MANAGER GLOBAL COMMUNICATIONS APOORVA Admitting Unavailable AICHHOLZ, MANAGER [employer]LOBAL COMMUNICATIONS [place]ORVA Consulting Unavailable AICHHOLZ, MANAGER GLOBAL COMMUNICATIONS APOORVA Attending Unavailable NADERER, DR RUDY Simpson Primary Care Unavailable BONNIE RODRIGUES Consulting Unavailable NADERER, DR RUDY Simpson Primary Care Unavailable BARAZI, MILDRED Admitting Unavailable BARAZI, MILDRED Consulting Unavailable BARAZI, MILDRED Attending Unavailable NADERER, DR RUDY Simpson Primary Care Unavailable CHEFORNAK, DR ASIF Davila Consulting Unavailable FAWWAD, H Attending Unavailable FAWWAD, H Admitting Unavailable FAWWAD, H Consulting Unavailable Haladay, Kristy Attending Unavailable Haladay, Kristy Admitting Unavailable NADERER, RUDY Attending Unavailable TIMMIS, MARIAH Martinez Attending Unavailable ROCÍO, BEBA Referring Unavailable ROCÍO, BEBA Referring Unavailable ROCÍO, BEBA Referring Unavailable GABRIEL, BOBO Referring Unavailable GABRIEL, BOBO Referring Unavailable ROCÍO, BEBA Referring Unavailable ROCÍO, BEBA Referring Unavailable ROCÍO, BEBA Referring Unavailable ROCÍO, BEBA Referring Unavailable GABRIEL, BOBO Referring Unavailable GABRIEL, BOBO Referring Unavailable GABRIEL, BOBO Referring Unavailable GABRIEL, BOBO Referring Unavailable GABRIEL, BOBO Referring Unavailable GABRIEL, BOBO Referring Unavailable CHITRA, CUBA Attending Unavailable GABRIEL, BOBO Referring Unavailable MOUKARBEL, BORIS Attending Unavailable GABRIEL, BOBO Referring Unavailable GABRIEL, BOBO Referring Unavailable GABRIEL, BOBO Referring Unavailable ROCÍO, BEBA Referring Unavailable ROCÍO, BEBA Referring Unavailable GABRIEL, BOBO Referring Unavailable GABRIEL, BOBO Referring Unavailable GABRIEL, BOBO Referring Unavailable GABRIEL, BOBO Referring Unavailable Problems Active Problems Problem Classification Problem Date Documented Date Episodic/Chronic Asthma (2 sources) Mild persistent asthma, uncomplicated; Translations: [Unspecified asthma, uncomplicated] Onset: 01-30-2022 Chronic Cardiac dysrhythmias (2 sources) Paroxysmal atrial fibrillation; Translations: [Paroxysmal atrial fibrillation] Onset: 01-06-2024 Chronic Conduction disorders (6 sources) Presence of automatic (implantable) cardiac defibrillator; Translations: [PRESENCE AUTO IMPLANT CARDIAC DEFIB] Onset: 09-05-2022 Chronic Congestive heart failure; nonhypertensive (8 sources) Chronic systolic (congestive) heart failure; Translations: [Acute on chronic systolic (congestive) heart failure] Onset: 07-09-2022 Chronic Coronary atherosclerosis and other heart disease (2 sources) Atherosclerotic heart disease of kaw coronary artery without angina pectoris; Translations: [Atherosclerotic heart disease of kaw coronary artery without angina pectoris] Onset: 07-06-2022 [...] HX MALIG NEOPLASM PROSTATE] Onset: 07-09-2022 Episodic Cardiac dysrhythmias (2 sources) Palpitations; Translations: [Palpitations] Onset: 10-13-2023 Episodic Diabetes mellitus without complication (1 source) [...] 07-09-2022 Episodic Other aftercare (1 source) Other usp (current) drug therapy; Translations: [OTH CORRECTION CURRENT DRUG THERAPY] Onset: 07-09-2022 Episodic Other [...] Value Interpretation Reference Range Facility Office Visiton 07-03-2024 Follow-up visit [id number] Dominik Doherty 1955 M Date Provider Department Center 07/03/2024 BORIS COONEY ALON [facility] Family History Problem Relation Age of Onset Other Mother Family Status - Relation Status Age at Mother Level of Service:41481 MO OFFICE/OUTPATIENT ESTABLISHED MOD MDM 30 MIN Normal [facility] 36on 01-19-2024 36 Regarding lab result s from 01/17/2024: STEPHANIE Waller MA Labs all look very good, continue all meds, no concerns Patient informed and he verbalized understanding. Normal [facility] 37on 01-06-2024 37 *Continue heart heal thy [...] Complete blood count- must be fasting Normal [facility] Office Visiton 01-06-2024 Follow-up visit [id number] Dominik Doherty ert 1955 M Date Provider Department Center 01/06/2024 120-CUBA BUENROSTRO ALON [facility] Family History Problem Relation Age of Onset Other Mother Family Status - Relation Status Age at Mother Level of Service:69958 MO OFFICE/OUTPATIENT ESTABLISHED MOD MDM 30 MIN Normal [facility] COLLIN Antinuclear Antibodieson 12-03-2022 Antinuclear Abs, IFA Positive Critically abnormal . [facility] Comment on above: Result Comment: Nega tive <1:80 Borderline 1:80 Positive >1:80 Performed By: #### A NA #### [facility] , #### PTH, CRP, CBC, ESR, URIC, CMP #### [facility] [address] Homogeneous Pattern 1:[address] Normal . [facility] Comment on above: Result Comment: ICAP nomenclature: AC-1 Performed By: #### A NA #### [facility] , #### PTH, CRP, CBC, ESR, URIC, CMP #### [facility] [address] Note 1 Normal . [facility] Comment on above: Result Comment: For more information about Hep-2 cell patterns use [employer].AUTOFACT, the official website for the International Consensus on Antinuclear Antibody (COLLIN) Patterns (ICAP). A positive COLLIN result may occur in healthy individuals (low titer) or be associated with a variety of diseases. See interpretation chart which is not all inclusive: Pattern Antigen Detected Suggested Disease Association Homogeneous DNA(ds,ss), SLE - High titers Nucleosomes, Histones Drug-induced SLE Speckled Sm, EXTRACTOR OPERATOR SOLVENT PROCESS, SCL-70, SLE,MCTD,PSS (diffuse form), SS-A/SS-B Sjogrens Nucleolar SCL-70, PM-1/SCL High titers Scleroderma, PM/DM Centromere Centromere PSS (limited form) w/Crest syndrome variable Nuclear Dot [id number] Primary Biliary Cirrhosis Nuclear GP210, Primary Biliary Cirrhosis Membrane flor A,B,C Performed at: [facility] [id number] [place] Poisoner: John Acosta PhD, Phone: [phone] PERFORMED BY: [place] [address] PATHOLOGIST SOLID WASTE COLLECTOR ROMULO SERRA M.D. Performed By: #### A NA #### [facility] , #### PTH, CRP, CBC, ESR, URIC, CMP #### [facility] [address] [place] [address] C-Reactive Proteinon 023 C-Reactive Protein 0.6 mg/dL High 0.0-0.5 [facility] Comment on above: Result Comment: PERF ORMED BY: [place] [address] PATHOLOGIST SOLID WASTE COLLECTOR ROMULO SERRA M.D. Performed By: #### A NA #### [facility] , #### PTH, CRP, CBC, ESR, URIC, CMP #### [facility] [address] [place] [address] Complete Blood Count Auto Di ffon 12-03-2022 Basophils (Bld) [#/Vol] 0.1 10*3/uL Normal 0.0-0.2 [facility] Comment on above: Performed By: #### A NA #### [facility] , #### PTH, CRP, CBC, ESR, URIC, CMP #### [address] Basophils/100 WBC (Bld) 1.1 % Normal . [facility] Comment on above: Performed By: #### A NA #### [facility] , #### PTH, CRP, CBC, ESR, URIC, CMP #### [address] Eosinophils (Bld) [#/Vol] 0.3 10*3/uL Normal 0.0-0.45 [facility] Comment on above: Performed By: #### A NA #### [facility] , #### PTH, CRP, CBC, ESR, URIC, CMP #### [address] Eosinophils/100 WBC (Bld) 4.2 % Normal . [facility] Comment on above: Performed By: #### A NA #### [facility] , #### PTH, CRP, CBC, ESR, URIC, CMP #### [address] Erythrocyte distribution width (RBC) [Ratio] 16.3 % High 12.0-14.8 [facility] Comment on above: Performed By: #### A NA #### [facility] , #### PTH, CRP, CBC, ESR, URIC, CMP #### [address] Hematocrit (Bld) [Volume fraction] 40.2 % Normal 38.8-50.0 [facility] Comment on above: Performed By: #### A NA #### [facility] , #### PTH, CRP, CBC, ESR, URIC, CMP #### [address] Hemoglobin (Bld) [Mass/Vol] 13.3 g/dL Normal 13.0-17.0 [facility] Comment on above: Performed By: #### A NA #### [facility] , #### PTH, CRP, CBC, ESR, URIC, CMP #### [address] Lymphocytes (Bld) [#/Vol] 2.5 10*3/uL Normal 1.00-4.8 [facility] Comment on above: Performed By: #### A NA #### [facility] , #### PTH, CRP, CBC, ESR, URIC, CMP #### [address] Lymphocytes/100 WBC (Bld) 31.3 % Normal . [facility] Comment on above: Performed By: #### A NA #### [facility] , #### PTH, CRP, CBC, ESR, URIC, CMP #### [address] MCH (RBC) [Entitic mass] 29.4 pg Normal 27.5-35.2 [facility] Comment on above: Performed By: #### A NA #### [facility] , #### PTH, CRP, CBC, ESR, URIC, CMP #### [address] MCV (RBC) [Entitic vol] 88.7 fL Normal 83.5-101 [facility] Comment on above: Performed By: #### A NA #### [facility] , #### PTH, CRP, CBC, ESR, URIC, CMP #### [address] Mean Corpuscular HGB Conc 33.1 g/dL Normal 32.5-35.6 [facility] Comment on above: Performed By: #### A NA #### [facility] , #### PTH, CRP, CBC, ESR, URIC, CMP #### [address] Monocytes (Bld) [#/Vol] 1.0 10*3/uL High 0.0-0.8 [facility] Comment on above: Performed By: #### A NA #### [facility] , #### PTH, CRP, CBC, ESR, URIC, CMP #### [address] Monocytes/100 WBC (Bld) 12.9 % Normal . [facility] Comment on above: Performed By: #### A NA #### [facility] , #### PTH, CRP, CBC, ESR, URIC, CMP #### [address] Neutrophils (Bld) [#/Vol] 4.1 10*3/uL Normal 1.8-7.7 [facility] Comment on above: Performed By: #### A NA #### [facility] , #### PTH, CRP, CBC, ESR, URIC, CMP #### [address] Neutrophils/100 WBC (Bld) 50.5 % Normal . [facility] Comment on above: Performed By: #### A NA #### [facility] , #### PTH, CRP, CBC, ESR, URIC, CMP #### [place] [address] [place] NRBC% 0.0 /100{WBC} Normal 0-0.5 [facility] Comment on above: Performed By: #### A NA #### [facility] , #### PTH, CRP, CBC, ESR, URIC, CMP #### [place] [address] [place] Platelet mean volume (Bld) [Entitic vol] 8.7 fL Normal 6.6-10.1 [facility] Comment on above: Performed By: #### A NA #### [facility] , #### PTH, CRP, CBC, ESR, URIC, CMP #### [facility] [address] Platelets (Bld) [#/Vol] 285 10*3/uL Normal 150-450 [facility] Comment on above: Performed By: #### A NA #### [facility] , #### PTH, CRP, CBC, ESR, URIC, CMP #### [facility] [address] [place] [address] RBC (Bld) [#/Vol] 4.53 10*6/uL Normal 3.90-5.[address] [facility] Comment on above: Performed By: #### A NA #### [facility] , #### PTH, CRP, CBC, ESR, URIC, CMP #### [facility] [address] [place] [address] WBC (Bld) [#/Vol] 8.0 10*3/uL Normal 4.1-10.5 [facility] Comment on above: Performed By: #### A NA #### [facility] , #### PTH, CRP, CBC, ESR, URIC, CMP #### [facility] [address] [place] [address] Comprehensive Metabolic Pane claritza 12-03-2022 Albumin [Mass/Vol] 4.2 g/dL Normal 3.5-5.7 [facility] Comment on above: Performed By: #### A NA #### [facility] , #### PTH, CRP, CBC, ESR, URIC, CMP #### [facility] [address] [place] [address] Albumin/Globulin [Mass ratio] 1.3 {ratio} Normal [facility] Comment on above: Performed By: #### A NA #### [facility] , #### PTH, CRP, CBC, ESR, URIC, CMP #### [address] ALP [Catalytic activity/Vol] 69 U/L Normal 34-104 [facility] Comment on above: Performed By: #### A NA #### [facility] , #### PTH, CRP, CBC, ESR, URIC, CMP #### [address] ALT [Catalytic activity/Vol] 15 U/L Normal 7-52 [facility] Comment on above: Performed By: #### A NA #### [facility] , #### PTH, CRP, CBC, ESR, URIC, CMP #### [address] Anion gap [Moles/Vol] 9.9 mmol/L Normal 6.0-15.0 [facility] Comment on above: Performed By: #### A NA #### [facility] , #### PTH, CRP, CBC, ESR, URIC, CMP #### [address] AST [Catalytic activity/Vol] 24 U/L Normal 13-39 [facility] Comment on above: Performed By: #### A NA #### [facility] , #### PTH, CRP, CBC, ESR, URIC, CMP #### [address] Bilirubin [Mass/Vol] 0.4 mg/dL Normal 0.3-1.0 [facility] Comment on above: Performed By: #### A NA #### [facility] , #### PTH, CRP, CBC, ESR, URIC, CMP #### [address] Calcium [Mass/Vol] 9.6 mg/dL Normal 8.6-10.3 [facility] Comment on above: Performed By: #### A NA #### [facility] , #### PTH, CRP, CBC, ESR, URIC, CMP #### [address] Chloride [Moles/Vol] 103 mmol/L Normal 98-107 [facility] Comment on above: Performed By: #### A NA #### [facility] , #### PTH, CRP, CBC, ESR, URIC, CMP #### [address] CO2 [Moles/Vol] 29.5 mmol/L Normal 21.0-31.0 [facility] Comment on above: Performed By: #### A NA #### [facility] , #### PTH, CRP, CBC, ESR, URIC, CMP #### [address] Creatinine [Mass/Vol] 1.06 mg/dL Normal 0.70-1.30 [facility] Comment on above: Performed By: #### A NA #### [facility] , #### PTH, CRP, CBC, ESR, URIC, CMP #### [address] GFR/1.73 sq M.predicted MDRD (S/P/Bld) [Vol rate/Area] mL/min/{1.73_m2} [facility] Comment on above: Performed By: #### A NA #### [facility] , #### PTH, CRP, CBC, ESR, URIC, CMP #### [facility] [address] [place] [address] Globulin (S) [Mass/Vol] 3.2 g/dL [facility] Comment on above: Performed By: #### A NA #### [facility] , #### PTH, CRP, CBC, ESR, URIC, CMP #### [facility] [address] Glucose [Mass/Vol] 81 mg/dL Normal 70-100 [facility] Comment on above: Result Comment: [facility] Glucose Reference Range is dependent on time and content of last meal. Glucose of more than 200 mg/dL in a nonstressed, ambulatory subject supports the diagnosis of Diabetes Mellitus. ADA recommended reference range Performed By: #### A NA #### [facility] , #### PTH, CRP, CBC, ESR, URIC, CMP #### [address] Potassium [Moles/Vol] 4.4 mmol/L Normal 3.5-5.1 [facility] Comment on above: Performed By: #### A NA #### [facility] , #### PTH, CRP, CBC, ESR, URIC, CMP #### [address] Protein [Mass/Vol] 7.4 g/dL Normal 6.4-8.9 [facility] Comment on above: Performed By: #### A NA #### [facility] , #### PTH, CRP, CBC, ESR, URIC, CMP #### [address] Sodium [Moles/Vol] 138 mmol/L Normal 136-145 [facility] Comment on above: Performed By: #### A NA #### [facility] , #### PTH, CRP, CBC, ESR, URIC, CMP #### [place] [address] [place] Urea nitrogen [Mass/Vol] 19 mg/dL Normal 7-25 [facility] Comment on above: Performed By: #### A NA #### [facility] , #### PTH, CRP, CBC, ESR, URIC, CMP #### [place] [address] [place] Erythrocyte Sedimentation Ra nishant 12-03-2022 ESR (Bld) [Velocity] 43 mm/h High 0-19 [facility] Comment on above: Result Comment: PERF ORMED BY: [place] [address] PATHOLOGIST SOLID WASTE COLLECTOR ROMULO SERRA M.D. Performed By: #### A NA #### [facility] , #### PTH, CRP, CBC, ESR, URIC, CMP #### [address] Parathyroid Hormone Intacton 12-03-2022 Parathyroid Hormone Intact 34.1 pg/mL Normal 12-88 [facility] Comment on above: Result Comment: PERF ORMED BY: [place] [address] PATHOLOGIST SOLID WASTE COLLECTOR ROMULO SERRA M.D. Performed By: #### A NA #### [facility] , #### PTH, CRP, CBC, ESR, URIC, CMP #### [address] Uric Acidon 12-03-2022 Urate [Mass/Vol] 3.5 mg/dL Normal 2.4-7.6 [facility] Comment on above: Performed By: #### A NA #### [facility] , #### PTH, CRP, CBC, ESR, URIC, CMP #### [facility] [address] [place] [address] XR foot LT 2Von 12-03-2022 XR foot LT 2V [facility] [place] [address] XRay Report Signed Patient: Kristy Doherty MR#: [id number] 81 : 1955 Acct:[id number] Age/Sex: 67 / M ADM Date: 12/03/22 Loc: ICXD Room: Type: [facility] Attending Dr: Kristy Beatty MD Copies [...] Bonnie Grewal M.D.12/03/2022 4:56 PM Dictation Location: [place] [address] Transcribed By: [facility] 12/03/221655 Dictated By: Bonnie Grewal II, MD 12/03/221654 Signed By: 12/03/221655 Normal [facility] XR hand BI 2Von 12-03-2022 XR hand BI 2V [facility] [place] [address] XRay Report Signed Patient: Kristy Doherty MR#: [id number] 81 : 1955 Acct:[id number] Age/Sex: 67 / M ADM Date: 12/03/22 Loc: ICX Room: Type: [facility] Attending Dr: Kristy Beatty MD Copies [...] Grewal II, MD 12/03/221650 Signed By: 12/03/221728 [facility] XR knee LT 2Von 12-03-2022 XR knee LT 2V [facility] [place] [address] XRay Report Signed Patient: Kristy Doherty MR#: [id number] 81 : 1955 Acct:[id number] Age/Sex: 67 / M ADM Date: 12/03/22 Loc: ICXD Room: Type: [facility] Attending Dr: Kristy Beatty MD Copies [...] Bonnie Grewal M.D.12/03/2022 4:54 PM Dictation Location: [facility] Transcribed By: SUSAN 12/03/221653 Dictated By: Bonnie Grweal II, MD 12/03/221652 Signed By: 12/03/221653 [facility] COLLIN by IFAon 11-04-2022 Antinuclear Antibodies, IFA Negative Normal [facility] Comment on above: Result Comment: Nega tive <1:80 Borderline 1:80 Positive >1:80 ICAP nomenclature: AC-0 For more information about Hep-2 cell patterns use ANApatterns.org, the official website for the International Consensus on Antinuclear Antibody (COLLIN) Patterns (ICAP). Performed By: #### C AILYN, BMP #### [facility] [address] [place] [address] Dr. Skylar Chadwick ANTISTREPTOLYSIN O AB (ASO)o n 11-03-2022 Antistreptolysin O Ab 326.2 IU/mL Critically high 0.0-200.0 [facility] Comment on above: Performed By: #### A SOAB #### [facility] [address] [place] [address] Dr. Skylar Chadwick RHEUMATOID FACTORon 11-04-19 RA Latex Turbid. 14.3 IU/mL Critically high <14.0 [facility] Comment on above: Performed By: #### C AILYN, BMP #### [facility] [address] [place] [address] Dr. Skylar Chadwick CBC AUTO DIFFon 11-02-2022 BASO # 0.1 103/ul Normal 0.0-0.1 [facility] Comment on above: Performed By: #### C AILYN, BMP #### [facility] [address] [place] [address] Dr. Skylar Chadwick Basophils/100 WBC (Bld) 0.7 % Normal 0.2-2.0 [facility] Comment on above: Performed By: #### C ALIYN, BMP #### [facility] [address] [place] [address] Dr. Skylar Chadwick EO # 0.2 103/ul Normal 0.0-0.7 [facility] Comment on above: Performed By: #### C AILYN, BMP #### [facility] [address] [place] [address] Dr. Skylar Chadwick Eosinophils/100 WBC (Bld) 2.8 % Normal 0.9-7.0 [facility] Comment on above: Performed By: #### C AILYN, BMP #### [facility] [address] [place] [address] Dr. Skylar Chadwick Erythrocyte distribution width (RBC) [Ratio] 15.1 % Critically high 11.0-15.0 [facility] Comment on above: Performed By: #### C AILYN, BMP #### [facility] [address] [address] [address] Skylar Chadwick Hematocrit (Bld) [Volume fraction] 37.2 % Critically low 42.0-54.0 [facility] Comment on above: Performed By: #### C MADM, BMP #### [facility] [address] [address] [address] Skyalr Chadwick Hemoglobin (Bld) [Mass/Vol] 12.2 g/dL Critically low 14.0-18.0 [facility] Comment on above: Performed By: #### C MADM, BMP #### [facility] [address] [place] [address] [address] Skylar Chadwick IG # 0.02 10e3/ul Normal 0.00-0.03 [facility] Comment on above: Performed By: #### C MADM, BMP #### [facility] [address] [place] [address] Dr. Skylar Chadwick IG % 0.3 % Normal 0.0-0.5 [facility] Comment on above: Performed By: #### C MADM, BMP #### [facility] [address] [place] [address] Dr. Skylar Chadwick LYMPH # 2.2 103/ul Normal 1.2-3.8 [facility] Comment on above: Performed By: #### C MADM, BMP #### [facility] [address] [address] [address] Skylar Chadwick Lymphocytes/100 WBC (Bld) 30.3 % Normal 20.5-60.0 [facility] Comment on above: Performed By: #### C MADM, BMP #### [facility] [address] [place] [address] Dr. Skylar Chadwick MANUAL DIFF REQ NO Normal [facility] Comment on above: Performed By: #### C MADM, BMP #### [facility] [address] [place] [address] Dr. Skylar Chadwick MCH (RBC) [Entitic mass] 29.3 pg Normal 25.9-34.0 [facility] Comment on above: Performed By: #### C MADM, BMP #### [facility] [address] [place] [address] Dr. Skylar Chadwick MCHC (RBC) [Mass/Vol] 32.8 g/dL Normal 29.9-35.2 [facility] Comment on above: Performed By: #### C MADM, BMP #### [facility] [address] [place] [address] Dr. Skylar Chadwick MCV (RBC) [Entitic vol] 89.2 fL Normal 80.0-94.0 [facility] Comment on above: Performed By: #### C MADM, BMP #### [facility] [address] [place] [address] Dr. Skylar Chadwick MONO # 0.8 103/ul Normal 0.3-0.8 [facility] Comment on above: Performed By: #### C MADM, BMP #### [facility] [address] [place] [address] Dr. Skylar Chadwick Monocytes/100 WBC (Bld) 10.9 % Normal 1.7-12.0 [facility] Comment on above: Performed By: #### C MADM, BMP #### [facility] [address] [place] [address] Dr. Skylar Chadwick NEUT # 4.0 103/ul Normal 1.4-6.5 [facility] Comment on above: Performed By: #### C MADM, BMP #### [facility] [address] [place] [address] Dr. Skylar Chadwick Neutrophils/100 WBC (Bld) 55.0 % Normal 43.0-75.0 [facility] Comment on above: Performed By: #### C MADM, BMP #### [facility] [address] [place] [address] Dr. Skylar Chadwick Platelet mean volume (Bld) [Entitic vol] 10.3 fL Normal 9.5-13.5 [facility] Comment on above: Performed By: #### C MADM, BMP #### [facility] [address] [place] [address] Dr. Skylar Chadwick PLT 289 103/ul Normal 150-450 [facility] Comment on above: Performed By: #### C MADM, BMP #### [facility] [address] [address] [address] Skylar Chadwick RBC 4.17 106/ul Critically low 4.70-6.10 [facility] Comment on above: Performed By: #### C MADM, BMP #### [facility] [address] [address] [address] Skylar Chadwick WBC 7.2 103/ul Normal 4.0-11.0 [facility] Comment on above: Performed By: #### C MADM, BMP #### [facility] [address] [place] [address] Dr. Skylar Chadwick CRPon 11-02-2022 CRP 1.3 mg/dL Critically high <=1.0 [facility] Comment on above: Performed By: #### U EFRAÍN, CMP, CRP #### [facility] [address] [place] [address] Dr. Skylar Chadwick PROF 14(COMP METB)on 023 Albumin [Mass/Vol] 3.4 g/dL Normal 3.4-5.0 [facility] Comment on above: Performed By: #### U EFRAÍN, CMP, CRP #### [facility] [address] [place] [address] Dr. Skylar Chadwick Albumin/Globulin [Mass ratio] 0.7 {ratio} Normal [facility] Comment on above: Performed By: #### U EFRAÍN, CMP, CRP #### [facility] [address] [place] [address] Dr. Skylar Chadwick ALP [Catalytic activity/Vol] 72 U/L Normal 46-116 [facility] Comment on above: Performed By: #### U EFRAÍN, CMP, CRP #### [facility] [address] [place] [address] Dr. Skylar Chadwick ALT [Catalytic activity/Vol] 28 U/L Normal 16-63 [facility] Comment on above: Performed By: #### U EFARÍN, CMP, CRP #### [facility] [address] [address] [address] Skylar Chadwick Anion gap [Moles/Vol] 9.9 mmol/L Normal [facility] Comment on above: Performed By: #### U EFRAÍN, CMP, CRP #### [facility] [address] [address] [address] Skylar Chadwick AST [Catalytic activity/Vol] 19 U/L Normal 15-37 [facility] Comment on above: Performed By: #### U EFRAÍN, CMP, CRP #### [facility] [address] [address] [address] Skylar Chadwick Bilirubin [Mass/Vol] 0.3 mg/dL Normal 0.2-1.0 [facility] Comment on above: Performed By: #### U EFRAÍN, CMP, CRP #### [facility] [address] [address] [address] Skylar Chadwick Calcium [Mass/Vol] 9.8 mg/dL Normal 8.5-10.1 [facility] Comment on above: Performed By: #### U EFRAÍN, CMP, CRP #### [facility] [address] [address] [address] Skylar Chadwick Chloride [Moles/Vol] 103 mmol/L Normal 98-107 [facility] Comment on above: Performed By: #### U EFRAÍN, CMP, CRP #### [facility] [address] [address] [address] Skylar Chadwick CO2 [Moles/Vol] 31.0 mmol/L Normal 21.0-32.0 [facility] Comment on above: Performed By: #### U EFRAÍN, CMP, CRP #### [facility] [address] [address] [address] Skylar Chadwick Creatinine [Mass/Vol] 1.14 mg/dL Normal 0.70-1.30 [facility] Comment on above: Performed By: #### U EFRAÍN, CMP, CRP #### [facility] [address] [address] [address] Skylar Chadwick EGFR-AF BULGARIAN >60 Normal >=60 [facility] Comment on above: Performed By: #### U EFRAÍN, CMP, CRP #### [facility] [address] [address] [address] Skylar Chadwick EGFR-NON AF BULGARIAN >60 Normal >=60 [facility] Comment on above: Performed By: #### U EFRAÍN, CMP, CRP #### [facility] [address] [address] [address] Skylar Chadwick Globulin (S) [Mass/Vol] 4.8 g/dL Normal [facility] Comment on above: Performed By: #### U EFRAÍN, CMP, CRP #### [facility] [address] [address] [address] kSylar Chadwick Glucose [Mass/Vol] 88 mg/dL Normal 74-106 [facility] Comment on above: Performed By: #### U EFRAÍN, CMP, CRP #### [facility] [address] [address] [address] Skylar Chadwick Potassium [Moles/Vol] 3.9 mmol/L Normal 3.5-5.1 [facility] Comment on above: Performed By: #### U EFRAÍN, CMP, CRP #### [facility] [address] [address] [address] Skylar Chadwick Protein [Mass/Vol] 8.2 g/dL Normal 6.4-8.2 [facility] Comment on above: Performed By: #### U EFRAÍN, CMP, CRP #### [facility] [address] [address] [address] Skylar Chadwick Sodium [Moles/Vol] 140 mmol/L Normal 136-145 [facility] Comment on above: Performed By: #### U EFRAÍN, CMP, CRP #### [facility] [address] [address] [address] Skylar Chadwick Urea nitrogen [Mass/Vol] 18.0 mg/dL Normal 7.0-18.0 [facility] Comment on above: Performed By: #### U EFRAÍN, CMP, CRP #### [facility] [address] [address] [address] Skylar Chadwick Urea nitrogen/Creatinine [Mass ratio] 15.8 mg/mg Normal [facility] Comment on above: Performed By: #### U EFRAÍN, CMP, CRP #### [facility] [address] [address] [address] Skylar Chadwick SED RATE WESTERGRENon 2022 SED RATE 67 mm/hr Critically high <=20 [facility] Comment on above: Performed By: #### C MADM, BMP #### [facility] [address] [address] [address] Skylar Chadwick URIC ACID SERUMon 11-02-2022 Urate [Mass/Vol] 3.3 mg/dL Critically low 3.5-7.2 [facility] Comment on above: Performed By: #### U EFRAÍN, CMP, CRP #### [facility] [address] [address] [address] Skylar Chadwick XR KNEE LT 3Von 11-02-2022 XR KNEE LT 3V EXAM: XR KNEE LT 3V HISTORY: Effusion of joint of left knee COMPARISON: None. TECHNIQUE: 3 views FINDINGS: There is no acute fracture or dislocation. No radiopaque foreign body. The soft tissues are unremarkable. IMPRESSION: No acute fracture or dislocation. Electronically authenticated by: BONNIE RODRIGUES Date: 2022-11-02 14:46 Normal [facility] ECHOCARDIO M/2D COMPLETEon 0 10-28-2022 ECHOCARDIO M/2D COMPLETE Patient: KRISTY DOHERTY Exam Date: 10/28/2022 : 1955 Gender:M Ordering : DR BORIS KIM M.D. Admission #: [id number] Family : Order #: [id number] CLICK HERE TO VIEW EXAM ECHOCARDIOGRAM REPORT [...] Kim M.D. on 10/30/2022 at 19:19 Normal [facility] XR CHEST 2 Von 09-05-2022 XR [...] COLVIN Date: 2022-09-05 15:49 Normal [facility] ECHOCARDIO M/2D COMPLETEon 0 08-18-2022 ECHOCARDIO M/2D COMPLETE Patient: KRISTY DOHERTY Exam Date: 08/18/2022 : 1955 Gender:M Ordering : MILDRED LOGAN Admission #: [id number] Family : Order #: [id number] CLICK HERE TO VIEW EXAM ECHOCARDIOGRAM REPORT [...] Area (VTI): 2.22 cm2, 2.22 cm2 Deceleration Wood: 1.61 m/s2 Pressure Half-Time: 686.93 ms Peak [...] Kim M.D. on 08/19/2022 at 17:24 Normal [facility] CARDIAC BONNIE 3-6on 2 CK [Catalytic activity/Vol] 231 U/L Normal 39-308 [facility] Comment on above: Performed By: #### C MREP #### [facility] [address] [place] [address] Dr. Skylar GUERRIER.MB [Mass/Vol] 1.39 ng/mL Normal <=3.60 [facility] Comment on above: Performed By: #### C MREP #### [facility] [address] [address] [address] Skylar Chadwick HSTROP 41.4 pg/mL Normal 4.0-76.1 [facility] Comment on above: Result Comment: CUT- OFF POINTS HAVE BEEN ESTABLISHED BASED ON THE FOURTH UNIVERSAL DEFINITIONS OF MYOCARDIAL INFARCTION. THE UPPER REFERENCE LIMIT (URL) OF TROPONIN, DEFINED THE 99TH PERCENTILE OF cTnI DISTRIBUTION IN A REFERENCE POPULATION, HAS BEEN CONFIRMED THE DECISION THRESHOLD FOR RI DIAGNOSIS. Performed By: #### C MREP #### [facility] [address] [address] [address] Skylar Chadwick CK [Catalytic activity/Vol] 214 U/L Normal 39-308 [facility] Comment on above: Performed By: #### C MREP #### [facility] [address] [address] [address] Skylar Chadwick CK.MB [Mass/Vol] 1.37 ng/mL Normal <=3.60 [facility] Comment on above: Performed By: #### C MREP #### [facility] [address] [address] [address] Skylar Chadwick HSTROP 37.0 pg/mL Normal 4.0-76.1 [facility] Comment on above: Result Comment: CUT- OFF POINTS HAVE BEEN ESTABLISHED BASED ON THE FOURTH UNIVERSAL DEFINITIONS OF MYOCARDIAL INFARCTION. THE UPPER REFERENCE LIMIT (URL) OF TROPONIN, DEFINED THE 99TH PERCENTILE OF cTnI DISTRIBUTION IN A REFERENCE POPULATION, HAS BEEN CONFIRMED THE DECISION THRESHOLD FOR RI DIAGNOSIS. Performed By: #### C MREP #### [facility] [address] [place] [address] Dr. Skylar Chadwick CBC AUTO DIFFon 07-02-2022 BASO # 0.1 103/ul Normal 0.0-0.1 [facility] Comment on above: Performed By: #### C MADM, BMP #### [facility] [address] [place] [address] Dr. Skylar Chadwick Basophils/100 WBC (Bld) 1.3 % Normal 0.2-2.0 [facility] Comment on above: Performed By: #### C MADM, BMP #### [facility] [address] [place] [address] Dr. Skylar Chadwick EO # 0.6 103/ul Normal 0.0-0.7 [facility] Comment on above: Performed By: #### C MADM, BMP #### [facility] [address] [place] [address] Dr. Skylar Chadwick Eosinophils/100 WBC (Bld) 7.1 % Critically high 0.9-7.0 [facility] Comment on above: Performed By: #### C MADM, BMP #### [facility] [address] [place] [address] Dr. Skylar Chadwick Erythrocyte distribution width (RBC) [Ratio] 13.0 % Normal 11.0-15.0 [facility] Comment on above: Performed By: #### C AILYN, BMP #### [facility] [address] [place] [address] Dr. Skylar Chadwick Hematocrit (Bld) [Volume fraction] 37.2 % Critically low 42.0-54.0 [facility] Comment on above: Performed By: #### C AILYN, BMP #### [facility] [address] [place] [address] Dr. Skylar Chadwick Hemoglobin (Bld) [Mass/Vol] 13.2 g/dL Critically low 14.0-18.0 [facility] Comment on above: Performed By: #### C AILYN, BMP #### [facility] [address] [place] [address] Dr. Skylar Chadwick IG # 0.02 10e3/ul Normal 0.00-0.03 [facility] Comment on above: Performed By: #### C AILYN, BMP #### [facility] [address] [place] [address] Dr. Skylar Chadwick IG % 0.3 % Normal 0.0-0.5 [facility] Comment on above: Performed By: #### C AILYN, BMP #### [facility] [address] [place] [address] Dr. Skylar Chadwick LYMPH # 2.2 103/ul Normal 1.2-3.8 [facility] Comment on above: Performed By: #### C AILYN, BMP #### [facility] [address] [place] [address] Dr. Skylar Chadwick Lymphocytes/100 WBC (Bld) 27.4 % Normal 20.5-60.0 [facility] Comment on above: Performed By: #### C AILYN, BMP #### [facility] [address] [place] [address] Dr. Skylar Chadwick MANUAL DIFF REQ NO Normal [facility] Comment on above: Performed By: #### C AILYN, BMP #### [facility] [address] [place] [address] Dr. Skylar Chadwick MCH (RBC) [Entitic mass] 32.4 pg Normal 25.9-34.0 [facility] Comment on above: Performed By: #### C AILYN, BMP #### [facility] [address] [place] [address] Dr. Skylar Chadwick MCHC (RBC) [Mass/Vol] 35.5 g/dL Critically high 29.9-35.2 [facility] Comment on above: Performed By: #### C AILYN, BMP #### [facility] [address] [place] [address] Dr. Skylar Chadwick MCV (RBC) [Entitic vol] 91.2 fL Normal 80.0-94.0 [facility] Comment on above: Performed By: #### C AILYN, BMP #### [facility] [address] [place] [address] Dr. Skylar Chadwick MONO # 1.1 103/ul Critically high 0.3-0.8 [facility] Comment on above: Performed By: #### C AILYN, BMP #### [facility] [address] [place] [address] Dr. Skylar Chadwick Monocytes/100 WBC (Bld) 14.1 % Critically high 1.7-12.0 [facility] Comment on above: Performed By: #### C AILYN, BMP #### [facility] [address] [place] [address] Dr. Skylar Chadwick NEUT # 4.0 103/ul Normal 1.4-6.5 [facility] Comment on above: Performed By: #### C AILYN, BMP #### [facility] [address] [place] [address] Dr. Skylar Chadwick Neutrophils/100 WBC (Bld) 49.8 % Normal 43.0-75.0 [facility] Comment on above: Performed By: #### C AILYN, BMP #### [facility] [address] [place] [address] Dr. Skylar Chadwick Platelet mean volume (Bld) [Entitic vol] 10.5 fL Normal 9.5-13.5 [facility] Comment on above: Performed By: #### C MADM, BMP #### [facility] [address] [address] [address] Skylar Chadwick PLT 159 103/ul Normal 150-450 [facility] Comment on above: Performed By: #### C MADM, BMP #### [facility] [address] [address] [address] Skylar Chadwick RBC 4.08 106/ul Critically low 4.70-6.10 [facility] Comment on above: Performed By: #### C MADM, BMP #### [facility] [address] [address] [address] Skylar Chadwick WBC 8.0 103/ul Normal 4.0-11.0 [facility] Comment on above: Performed By: #### C MADM, BMP #### [facility] [address] [place] [address] Dr. Skylar Chadwick Covid-19 PCR (CVDTB)on 06-18 SARS-CoV-2 (COVID-19) RNA DANDY+probe Ql (Unsp spec) Not detected Normal NOT DETECTED [facility] Comment on above: Result Comment: When diagnostic [...] for this test is supported by the [place] of [employer] and Human Service's declaration that [...] longer be used). Performed By: #### C VDTBH #### [facility] [address] [place] [address] Dr. Skylar Chadwick ECHOCARDIO M/2D COMPLETEon 1 09-02-2021 ECHOCARDIO M/2D COMPLETE Patient: KRISTY DOHERTY Exam Date: 07/02/2022 : 1955 Gender:M Ordering : EDDIE SISTER Admission #: [id number] Family : DR RUDY KING . Order #: [id number] CLICK HERE TO VIEW EXAM ECHOCARDIOGRAM REPORT [...] M.D. on 07/02/2022 at 14:11 Normal [facility] CHEM 8 (BAS METB)on Anion gap [Moles/Vol] 8.4 mmol/L Normal [facility] Comment on above: Performed By: #### B MP #### [facility] [address] [place] [address] Dr. Skylar Chadwick Calcium [Mass/Vol] 8.3 mg/dL Critically low 8.5-10.1 [facility] Comment on above: Performed By: #### B MP #### [facility] [address] [place] [address] Dr. Skylar Chadwick Chloride [Moles/Vol] 97 mmol/L Critically low 98-107 [facility] Comment on above: Performed By: #### B MP #### [facility] [address] [place] [address] Dr. Skylar Chadwick CO2 [Moles/Vol] 32.9 mmol/L Critically high 21.0-32.0 [facility] Comment on above: Performed By: #### B MP #### [facility] [address] [place] [address] Dr. Skylar Chadwick Creatinine [Mass/Vol] 1.08 mg/dL Normal 0.70-1.30 [facility] Comment on above: Performed By: #### B MP #### [facility] [address] [place] [address] Dr. Skylar Chadwick EGFR-AF BULGARIAN >60 Normal >=60 [facility] Comment on above: Performed By: #### B MP #### [facility] [address] [place] [address] Dr. Skylar Chadwick EGFR-NON AF BULGARIAN >60 Normal >=60 [facility] Comment on above: Performed By: #### B MP #### [facility] [address] [place] [address] Dr. Skylar Chadwick Glucose [Mass/Vol] 114 mg/dL Critically high 74-106 [facility] Comment on above: Performed By: #### B MP #### [facility] [address] [place] [address] Dr. Skylar Chadwick Potassium [Moles/Vol] 3.3 mmol/L Critically low 3.5-5.1 [facility] Comment on above: Performed By: #### B MP #### [facility] [address] [address] [address] Skylar Chadwick Sodium [Moles/Vol] 135 mmol/L Critically low 136-145 [facility] Comment on above: Performed By: #### B MP #### [facility] [address] [address] [address] Skylar Chadwick Urea nitrogen [Mass/Vol] 13.0 mg/dL Normal 7.0-18.0 [facility] Comment on above: Performed By: #### B MP #### [facility] [address] [address] [address] Skylar Chadwick Urea nitrogen/Creatinine [Mass ratio] 12.0 mg/mg Normal [facility] Comment on above: Performed By: #### B MP #### [facility] [address] [address] [address] Skylar Chadwick Anion gap [Moles/Vol] 8.6 mmol/L Normal [facility] Comment on above: Performed By: #### C MADM, BMP #### [facility] [address] [address] [address] Skylar Chadwick Calcium [Mass/Vol] 8.6 mg/dL Normal 8.5-10.1 [facility] Comment on above: Performed By: #### C MADM, BMP #### [facility] [address] [address] [address] Skylar Chadwick Chloride [Moles/Vol] 96 mmol/L Critically low 98-107 [facility] Comment on above: Performed By: #### C MADM, BMP #### [facility] [address] [address] [address] Skylar Chadwick CO2 [Moles/Vol] 34.2 mmol/L Critically high 21.0-32.0 [facility] Comment on above: Performed By: #### C MADM, BMP #### [facility] [address] [address] [address] Skylar Chadwick Creatinine [Mass/Vol] 1.05 mg/dL Normal 0.70-1.30 [facility] Comment on above: Performed By: #### C MADM, BMP #### [facility] [address] [address] [address] Skylar Chadwick EGFR-AF BULGARIAN >60 Normal >=60 [facility] Comment on above: Performed By: #### C MADM, BMP #### [facility] [address] [address] [address] Skylar Chadwick EGFR-NON AF BULGARIAN >60 Normal >=60 [facility] Comment on above: Performed By: #### C MADM, BMP #### [facility] [address] [address] [address] Skylar Chadwick Glucose [Mass/Vol] 113 mg/dL Critically high 74-106 [facility] Comment on above: Performed By: #### C MADM, BMP #### [facility] [address] [address] [address] Skylar Chadwick Potassium [Moles/Vol] 2.8 mmol/L Critically low 3.5-5.1 [facility] Comment on above: Performed By: #### C MADM, BMP #### [facility] [address] [address] [address] Skylar Chadwick Sodium [Moles/Vol] 136 mmol/L Normal 136-145 [facility] Comment on above: Performed By: #### C MADM, BMP #### [facility] [address] [address] [address] Skylar Chadwick Urea nitrogen [Mass/Vol] 10.0 mg/dL Normal 7.0-18.0 [facility] Comment on above: Performed By: #### C MADM, BMP #### [facility] [address] [address] [address] Skylar Chadwick Urea nitrogen/Creatinine [Mass ratio] 9.5 mg/mg Normal [facility] Comment on above: Performed By: #### C MADM, BMP #### [facility] [address] [address] [address] Skylar Chadwick US CAROTID ART BILon [...] ASIF JOHN Date: 2022-07-02 11:23 Normal [facility] CARDIAC BONINE ADMITon 022 CK [Catalytic activity/Vol] 201 U/L Normal 39-308 [facility] Comment on above: Performed By: #### C AILYN, BMP #### [facility] [address] [address] [address] Skylar Chadwick CK.MB [Mass/Vol] 1.31 ng/mL Normal <=3.60 [facility] Comment on above: Performed By: #### C AILYN, BMP #### [facility] [address] [address] [address] Skylar Chadwick HSTROP 34.8 pg/mL Normal 4.0-76.1 [facility] Comment on above: Result Comment: CUT- OFF POINTS HAVE BEEN ESTABLISHED BASED ON THE FOURTH UNIVERSAL DEFINITIONS OF MYOCARDIAL INFARCTION. THE UPPER REFERENCE LIMIT (URL) OF TROPONIN, DEFINED THE 99TH PERCENTILE OF cTnI DISTRIBUTION IN A REFERENCE POPULATION, HAS BEEN CONFIRMED THE DECISION THRESHOLD FOR RI DIAGNOSIS. Performed By: #### C AILYN, BMP #### [facility] [address] [address] [address] Skylar Chadwick NHAN 336 ng/mL Critically high 16-96 [facility] Comment on above: Performed By: #### C AILYN, BMP #### [facility] [address] [address] [address] Skylar Chadwick CBC AUTO DIFFon 07-01-2022 BASO # 0.1 103/ul Normal 0.0-0.1 [facility] Comment on above: Performed By: #### C BC #### [facility] [address] [place] [address] Dr. Skylar Chadwick Basophils/100 WBC (Bld) 1.2 % Normal 0.2-2.0 [facility] Comment on above: Performed By: #### C BC #### [facility] [address] [place] [address] Dr. Skylar Chadwick EO # 0.5 103/ul Normal 0.0-0.7 [facility] Comment on above: Performed By: #### C BC #### [facility] [address] [place] [address] Dr. Skylar Chadwick Eosinophils/100 WBC (Bld) 6.3 % Normal 0.9-7.0 [facility] Comment on above: Performed By: #### C BC #### [facility] [address] [place] [address] Dr. Skylar Chadwick Erythrocyte distribution width (RBC) [Ratio] 12.9 % Normal 11.0-15.0 [facility] Comment on above: Performed By: #### C BC #### [facility] [address] [place] [address] Dr. Skylar Chadwick Hematocrit (Bld) [Volume fraction] 38.0 % Critically low 42.0-54.0 [facility] Comment on above: Performed By: #### C BC #### [facility] [address] [place] [address] Dr. Skylar Chadwick Hemoglobin (Bld) [Mass/Vol] 13.5 g/dL Critically low 14.0-18.0 [facility] Comment on above: Performed By: #### C BC #### [facility] [address] [place] [address] Dr. Skylar Chadwick IG # 0.02 10e3/ul Normal 0.00-0.03 [facility] Comment on above: Performed By: #### C BC #### [facility] [address] [place] [address] Dr. Skylar Chadwick IG % 0.2 % Normal 0.0-0.5 [facility] Comment on above: Performed By: #### C BC #### [facility] [address] [place] [address] Dr. Skylar Chadwick LYMPH # 2.6 103/ul Normal 1.2-3.8 [facility] Comment on above: Performed By: #### C BC #### [facility] [address] [place] [address] Dr. Skylar Chadwick Lymphocytes/100 WBC (Bld) 30.5 % Normal 20.5-60.0 [facility] Comment on above: Performed By: #### C BC #### [facility] [address] [place] [address] Dr. Skylar Chadwick MANUAL DIFF REQ NO Normal [facility] Comment on above: Performed By: #### C BC #### [facility] [address] [place] [address] Dr. Skylar Chadwick MCH (RBC) [Entitic mass] 32.2 pg Normal 25.9-34.0 [facility] Comment on above: Performed By: #### C BC #### [facility] [address] [place] [address] Dr. Skylar Chadwick MCHC (RBC) [Mass/Vol] 35.5 g/dL Critically high 29.9-35.2 [facility] Comment on above: Performed By: #### C BC #### [facility] [address] [place] [address] Dr. Skylar Chadwick MCV (RBC) [Entitic vol] 90.7 fL Normal 80.0-94.0 [facility] Comment on above: Performed By: #### C BC #### [facility] [address] [place] [address] Dr. Skylar Chadwick MONO # 1.2 103/ul Critically high 0.3-0.8 [facility] Comment on above: Performed By: #### C BC #### [facility] [address] [address] [address] Skylar Chadwick Monocytes/100 WBC (Bld) 14.3 % Critically high 1.7-12.0 [facility] Comment on above: Performed By: #### C BC #### [facility] [address] [address] [address] Skylar Chadwick NEUT # 4.0 103/ul Normal 1.4-6.5 [facility] Comment on above: Performed By: #### C BC #### [facility] [address] [address] [address] Skylar Chadwick Neutrophils/100 WBC (Bld) 47.5 % Normal 43.0-75.0 [facility] Comment on above: Performed By: #### C BC #### [facility] [address] [place] [address] Dr. Skylar Chadwick Platelet mean volume (Bld) [Entitic vol] 10.4 fL Normal 9.5-13.5 [facility] Comment on above: Performed By: #### C BC #### [facility] [address] [place] [address] Dr. Skylar Chadwick PLT 175 103/ul Normal 150-450 [facility] Comment on above: Performed By: #### C BC #### [facility] [address] [place] [address] Dr. Skylar Chadwick RBC 4.19 106/ul Critically low 4.70-6.10 [facility] Comment on above: Performed By: #### C BC #### [facility] [address] [place] [address] Dr. Skylar Chadwick WBC 8.4 103/ul Normal 4.0-11.0 [facility] Comment on above: Performed By: #### C BC #### [facility] [address] [place] [address] CSPINE WO CONon [...] BRIAN BRADSHAW Date: 2022-07-01 21:26 Normal [facility] CT HEAD WO CONon 07-01-2022 CT HEAD [...] of the sinuses are not in the [id number]. The middle ears are aerated the mastoid [...] ADIEL KERN Date: 2022-07-01 20:44 Normal [facility] D-DIMERon 07-01-2022 D-DIMER 0.35 mg/L FEU Normal <=0.59 [facility] Comment on above: Performed By: #### C AILYN, BMP #### [facility] [address] [place] [address] Dr. Skylar Chadwick D-DIMER COMMENTS SEE BELOW Normal [facility] Comment on above: Result Comment: Incr eases [...] Performed By: #### C AILYN, BMP #### [facility] [address] [place] [address] Dr. Skylar Chadwick PROF CHEM 8 (BAS METB)on Anion gap [Moles/Vol] 13.5 mmol/L Normal [facility] Comment on above: Performed By: #### C AILYN, BMP #### [facility] [address] [place] [address] Dr. Skylar Chadwick Calcium [Mass/Vol] 8.8 mg/dL Normal 8.5-10.1 [facility] Comment on above: Performed By: #### C AILYN, BMP #### [facility] [address] [place] [address] Dr. Skylar Chadwick Chloride [Moles/Vol] 94 mmol/L Critically low 98-107 [facility] Comment on above: Performed By: #### C AILYN, BMP #### [facility] [address] [place] [address] Dr. Skylar Chadwick CO2 [Moles/Vol] 29.0 mmol/L Normal 21.0-32.0 [facility] Comment on above: Performed By: #### C AILYN, BMP #### [facility] [address] [place] [address] Dr. Skylar Chadwick Creatinine [Mass/Vol] 1.03 mg/dL Normal 0.70-1.30 [facility] Comment on above: Performed By: #### C CARLOS ENRIQUEM, BMP #### [facility] [address] [place] [address] Dr. Skylar Chadwick EGFR-AF BULGARIAN >60 Normal >=60 [facility] Comment on above: Performed By: #### C MADM, BMP #### [facility] [address] [address] [address] Skylar Chadwick EGFR-NON AF BULGARIAN >60 Normal >=60 [facility] Comment on above: Performed By: #### C MADM, BMP #### [facility] [address] [place] [address] Dr. Skylar Chadwick Glucose [Mass/Vol] 111 mg/dL Critically high 74-106 [facility] Comment on above: Performed By: #### C CARLOS ENRIQUEM, BMP #### [facility] [address] [place] [address] Dr. Skylar Chadwick Potassium [Moles/Vol] 2.5 mmol/L Critically low 3.5-5.1 [facility] Comment on above: Performed By: #### C CARLOS ENRIQUEM, BMP #### [facility] [address] [place] [address] Dr. Skylar Chadwick Sodium [Moles/Vol] 134 mmol/L Critically low 136-145 Th [facility] Comment on above: Performed By: #### C CARLOS ENRIQUEM, BMP #### [facility] [address] [place] [address] Dr. Skylar Chadwick Urea nitrogen [Mass/Vol] 12.0 mg/dL Normal 7.0-18.0 [facility] Comment on above: Performed By: #### C CARLOS ENRIQUEM, BMP #### [facility] [address] [place] [address] Dr. Skylar Chadwick Urea nitrogen/Creatinine [Mass ratio] 11.7 mg/mg Normal [facility] Comment on above: Performed By: #### C CARLOS ENRIQUEM, BMP #### [facility] [address] [place] [address] Dr. Skylar Chadwick XR CHEST 1 Von 12-14-2022 XR CHEST 1 V CXR HISTORY: Shortness [...] MONCADA Date: 2022-07-01 20:44 Normal [facility] Outside Colonoscopyon 2021 Outside Colonoscopy [id number] D:127 Normal [facility] RAD - MISCon 01-29-2022 RAD - MISC [id number] D:127 Normal [facility] XR COLON AIR CONTR.on 2021 XR COLON AIR CONTR. EXAMINATION: XR COLO N AIR CONTR. HISTORY: Colonoscopy abnormal COMPARISON: No relevant comparison available. FLUOROSCOPY TIME: Fluoro time measures 3 minutes 40 seconds and 22 images were obtained. TECHNIQUE: An air contrast barium enema examination was performed in the usual manner. No field account manager abdominal radiograph was performed. Standard level fluoroscopic mode of operation utilized. FINDINGS: COLON: No focal obstruction, mass or stricture. Mild diverticulosis distal descending and proximal sigmoid colon. OTHER: Negative. IMPRESSION: Mild diverticulosis, otherwise normal exam Electronically authenticated by: ASIF JOHN Date: 2022-01-28 14:34 Normal [facility] Pre-Certification Formon Pre-Certification Form [id number] CD:127 Normal [facility] Consent for Procedure/Surger yon 01-08-2022 Consent for Procedure/Surgery [id number] D:127 Normal [facility] Ambulatory Visit Summaryon 0 01-07-2022 Ambulatory Visit [...] Seasonal allergic rhinitis Vitamin D deficiency Normal [facility] Physician Referralon 022 Physician Referral [id number] D:127 Normal [facility] Encounters Encounter Date Encounter Type Care Provider Facility Start: 08-11-2024 ambulatory [facility] Start: 07-31-2024 ambulatory [facility] Start: 07-03-2024 End: 07-03-20[facility] Start: 06-20-2024 ambulatory [facility] Start: 06-12-2024 ambulatory [facility] Start: 06-02-2024 ambulatory [facility] Start: 05-31-2024 ambulatory [facility] Start: 05-03-2024 ambulatory [facility] Start: 04-25-2024 End: 04-25-2024 ambulatory [facility] Start: 04-19-2024 ambulatory [facility] Start: 03-23-2024 ambulatory [facility] Start: 02-21-2024 ambulatory [facility] Start: 02-16-2024 ambulatory [facility] Start: 01-17-2024 End: 01-17-2024 ambulatory MARIAH LANGE Not Available Start: 01-12-2024 ambulatory [facility] Start: 01-06-2024 End: 01-06-2024 ambulatory CUBA BUENROSTRO [facility] Start: 01-05-2024 ambulatory [facility] Start: 01-05-2024 Encounter for preprocedural cardiovascular examination [facility] Start: 11-30-2023 ambulatory [facility] Start: 11-02-2023 End: 11-02-2023 ambulatory [facility] Start: 10-13-2023 ambulatory [facility] Start: 07-22-2023 End: 07-22-2023 ambulatory RUDY KING Not Available Start: 12-03-2022 End: 12-03-2022 ambulatory Kristy Beatty Facility:[facility] Start: 11-10-[address] RUDY KING Facil ity:[facility] Start: 11-02-2022 End: 04-18-2023 ambulatory ALEXIS CRAFT Facility:[facility] Start: 10-28-2022 End: [...] Date Payer Category Payer Self-pay 1959 Medicare [id number] 1959 Unknown [id number] 1955 Unknown [id number] 2.16.84 [id number] 1955 Unknown [id number] 2.16.84 [id number] 1955 Unknown [id number] 2.16.84 0.1.280780.3.579.2.593 1955 Unknown [id number] 2.16.84 0.1.126887.3.579.2.593 1955 Unknown [id number] 2.16.84 0.1.170136.3.579.2.593 1955 Unknown [id number] 2.16.84 0.1.411958.3.579.2.593 1955 Unknown [id number] 2.16.84 0.1.165000.3.579.2.593 1955 Unknown [id number] 2.16.84 0.1.669365.3.579.2.593 1955 Unknown [id number] 2.16.84 0.1.229180.3.579.2.593 1955 Unknown [id number] 2.16.84 0.1.058420.3.579.2.593 1955 Unknown [id number] 2.16.84 0.1.420203.3.579.2.1259 1955 Unknown [id number] 2.16.840 .1.931707.3.579.2.1259 Unknown [id number] 2.16.8 [id number] Clinical Notes 01-07-2022 to 07-03-2024 Note Date & Type Note Facility 07-03-2024 Note [place] [facility] - [facility] Subjective Kristy Doherty is a 68 y.o. year old male patient being seen for 6 mo follow up chronic systolic heart failure, hypertension, CAD, and AICD. His device was interrogated in Apr 2024. Denies chest pain, SOB, palpitations, lightheadedness/syncope, and bleeding on Eliquis. Doing well. Patient Active Problem List Diagnosis New onset of congestive heart failure (CMS/HCC) Asthma History of malignant neoplasm of prostate Hypomagnesemia Hypertension Syncope and collapse Coronary artery disease involving kaw coronary artery of kaw heart without angina pectoris Chronic systolic heart failure (CMS/HCC) Depressive disorder Dyslipidemia Prediabetes Seasonal allergic rhinitis Steatosis of liver Vitamin D deficiency Nonischemic cardiomyopathy (CMS/HCC) ICD (implantable cardioverter-defibrillator) in place Benign essential hypertension Chronic pansinusitis Hyperlipidemia Malignant tumor of prostate (CMS/HCC) Nasal polyp Mild persistent asthma without complication Paroxysmal atrial fibrillation (CMS/HCC) Family History Problem Relation Name Age of Onset Other (pacemaker) Mother Social History Tobacco Use Smoking status: Former Types: Cigarettes Smokeless tobacco: Never Substance Use Topics Alcohol use: Yes Alcohol/week: 14.0 standard drinks of alcohol Types: 14 Cans of beer per week Comment: occasional Drug use: Never MAGGIE Kristy is seen in follow up. He is a 68-year-old man with systolic heart failure. He has prior history of hypertension. In June 2022 he was admitted to the [facility] with syncope and echocardiogram showed new onset systolic heart failure with ejection fraction of 25%. Carotid ultrasound showed no significant stenosis. CT head was negative for intracranial pathology. He ended up being transferred to [facility] and underwent cardiac catheterization that showed mild [...] rhythm strips. He then underwent a dual-chamber [employer] ICD placement on 09/04/2022. He was evaluated in cardiology clinic on 05/11/[address] Bobo Raymond and due to device discovered atrial fibrillation he was started on Eliquis for anticoagulation. Today he reports that he has been doing well. He has had no recurrence of syncope. He denies chest pain. He has no shortness of breath on exertion. No leg edema. He does not have palpitations. He has been having bruising and easy bleeding tendency. No major bleeding. His blood pressure is elevated. Review of Systems Hematologic/Lymphatic: Bruises/bleeds easily. Musculoskeletal: Positive for arthritis, back pain and myalgias. All other systems reviewed and are negative. Objective Visit Vitals BP 142/78 (BP Location: Left arm, Patient Position: Sitting) Pulse 94 Ht 1.727 m (5' 8 ) Wt 88.9 kg (196 lb) SpO2 94% BMI 29.80 kg/m??? Smoking Status Former BSA 2.07 m??? Physical Exam Constitutional: Appearance: He is [...] Take 1 tablet (5 mg) by mouth two times daily., Disp: 180 tablet, Rfl: 3 atorvastatin (Lipitor) 40 mg tablet, take 1 tablet by mouth at bedtime, Disp: 90 tablet, R (more content not included)... [facility] 01-06-2024 Note Script for liver fun ction and lipid levels given to pt Continue statin [facility] 01-06-2024 Note Congestive heart vignesh lure remains stable [facility] 01-06-2024 Note [facility]TP CARDIOLOGY PROGR ESS [...] June 2022 he was admitted to the [facility] with syncope and echocardiogram showed new onset systolic heart failure with ejection fraction of 25%. Carotid ultrasound showed no significant stenosis. CT head was negative for intracranial pathology. He ended up being transferred to [facility] and underwent carotid catheterization that showed mild [...] rhythm strips. He then underwent a dual-chamber [employer] ICD placement on 09/04/2022. today he [...] CV Testing: rev (more content not included)... [facility] 01-06-2024 Note Patient here for 6 [...] All other systems reviewed and are negative. [facility] 01-06-2024 Note Coronary artery dise ase is stable Continue GDMT- lipitor, toprol continue risk factor modifications- heart healthy diet, regular exercise as tolerated and continue all medications. [facility] 01-06-2024 Note [facility] II- currently E F improved from 25-30% to 40% Remains euvolemic and stable Continue GDMT- lipitor, farxiga, toprol, entresto and aldactone Diuretic therapy- continue farxiga Monitor daily weights, I&O, fluid restriction 1.5-2L/day, renal function and electrolytes- Currently stable - improved EF- continue all medications [facility] 08-18-2022 Note PROCEDURE: XR FOOT L [...] authenticated by: BRIAN BRADSHAW Date: 2022-08-18 15:43 [facility] 08-04-2022 Note PROCEDURE: XR FOOT L [...] authenticated by: ASIF JOHN Date: 2022-08-04 08:48 [facility] 01-28-2022 Note OPERATIVE NOTE OPERATION DATE: [...] in 10 years. CC: Rudy King M.D. [facility] Signed and Approved by: DR RAVI GERONIMO . 01/30/2022 12:35:00 [facility] 01-07-2022 Note Chief Complaint consultation for [...] Brother. Primary malignant neoplasm of prostate: Brother. [facility] Comment on above: Result Comment: Elec tronically [...] DATE CREATED AUTHOR 02/04/2022 Jm Cates [facility] DATE CREATED AUTHOR AUTHOR'S ORGANIZ ATION 11/27/2022 [facility] DATE CREATED AUTHOR AUTHOR'S ORGANIZ ATION 12/25/2022 [facility] DATE CREATED AUTHOR AUTHOR'S ORGANIZ ATION 01/17/2024 [facility] DATE CREATED AUTHOR AUTHOR'S ORGANIZ ATION 08/14/2024 [facility] FOR RECORDS PERTAINING TO PATIENTS WHO [...] BE BASED ON THE PRIMARY CLINICAL RECORDS. [facility]. provides no warranty or guarantee of the accuracy or completeness of information in this document.
[2024-08-16 10:10] LABS: Anion Gap 13.5; BUN Creatinine Ratio 13.8; Calcium 8.8 mg/dL (8.5-10.1); Carbon Dioxide 29.5 mmol/L (21.0-32.0); Chloride 101 mmol/L (98-107); Estimated GFR (African America >60 (>=60 mL/min/1.73m^2); Estimated GFR (Non-African Ame 55 (>=60 mL/min/1.73m^2); Glucose 129 mg/dL (74-106); Sodium 140 mmol/L (136-145)
== END 2024-08-16 09:20 | disposition home or self-care (01) ==
PROVIDERS: PCP Family Medicine; Visit Provider Internal Medicine Interventional Cardiology
DX: I11.0 Hypertensive heart disease with heart failure (principal); I50.22 Chronic systolic (congestive) heart failure
CPT/HCPCS: 36415; 80048

== ENCOUNTER 2024-12-05 08:47 | Outpatient (OUT) | payer MEDICARE, SELFPAY ==
--- OUTSIDE RECORDS SUMMARY | 2024-12-05 08:54 | XMS_ITS | CCD ---
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 Name Role Phone JUDY, DR ESCALANTE Attending [...] DR RUDY Simpson Primary Care Unavailable AICHHOLZ, PROFESSOR OF PSYCHOLOGY APOORVA Admitting Unavailable AICHHOLZ, PROFESSOR OF PSYCHOLOGY [place] Consulting Unavailable AICHHOLZ, PROFESSOR OF PSYCHOLOGY APOORVA Attending Unavailable NADERER, DR RUDY Simpson Primary Care Unavailable BONNIE RODRIGUES Consulting Unavailable NADERER, DR RUDY Simpson Primary Care Unavailable BARAZI, MILDRED Admitting Unavailable MILDRED LOGAN Consulting Unavailable MILDRED LOGAN Attending Unavailable DR RUDY KING Primary Care Unavailable VOLGA, DR ASIF Davila Consulting Unavailable MARCELA, SHAIKH Michelle Attending Unavailable MARCELA, SHAIKH Michelle Admitting Unavailable MARCELA, SHAIKH Michelle Consulting Unavailable Kristy Beatty Attending Unavailable Rogerio, Kristy Admitting Unavailable RUDY KING Attending Unavailable MARIAH LANGE Attending Unavailable Rudy King MD Primary Care Provider [phone] BOBO RAYMOND Referring Unavailable GABRIEL, BOBO Referring Unavailable GABRIEL, BOBO Referring Unavailable GABRIEL, BOBO Referring Unavailable ROCÍO, BEBA Referring Unavailable ROCÍO, BEBA Referring Unavailable ROCÍO, BEBA Referring Unavailable ROCÍO, BEBA Referring Unavailable ROCÍO, BEBA Referring Unavailable GABRIEL, BOBO Referring Unavailable GABRIEL, BOBO Referring Unavailable GABRIEL, BOBO Referring Unavailable MOUKARBEL, BORIS Attending Unavailable GABRIEL, BOBO Referring Unavailable MOUKARBEL, BORIS Attending Unavailable CHITRA, SHANIA Attending Unavailable GABRIEL, BOBO Referring Unavailable MOUKARBEL, BORIS Referring Unavailable GABRIEL, BOBO Referring Unavailable GABRIEL, BOBO Referring Unavailable GABRIEL, BOBO Referring Unavailable GABRIEL, BOBO Referring Unavailable GABRIEL, BOBO Referring Unavailable ROCÍO, BEBA Referring Unavailable ROCÍO, BEBA Referring Unavailable ROCÍO, BEBA Referring Unavailable ROCÍO, BEBA Referring Unavailable GABRIEL, BOBO Referring Unavailable GABRIEL, BOBO Referring Unavailable GABRIEL, BOBO Referring Unavailable GABRIEL, BOBO Referring Unavailable Allergies Allergy Classification Reported Allergen(s) Allergy Type Date of Onset Reaction(s) Facility (1 source) OCTACOSANOL; Translations: [OCTACOSANOL] Propensity to adverse reactions to drug (disorder) 4 [facility] Repository Medications Current Medications Medication Drug Class(es) Dates Sig (Normalized) Sig (Original) [id number] 200 actuat albuterol 0.09 mg/actuat metered dose inhaler (1 source) beta2-Adrenergic Agonist Start: 06-19-2024 take 2 puff(s) by mouth every four hours as needed for wheezing albuterol HFA 90 mcg/act inhaler Indications: Mild persistent asthma without complication (CMS/HCC) INHALE 2 PUFFS BY MOUTH EVERY 4 HOURS NEEDED FOR WHEEZING 8.5 g 1 06/19/2024 Active allopurinol 300 mg oral tablet (1 source) Xanthine Oxidase Inhibitor Start: 11-01-2023 End: 10-31-2024 take 1 tablet by mouth once daily allopurinol (Zyloprim) 300 MG tablet Indications: Gastroesophageal reflux disease without esophagitis Take 1 tablet (300 mg) by mouth 1 (one) time each day at the same time 30 tablet 11 11/01/2023 10/31/2024 Active apixaban 5 mg oral tablet (1 source) Factor Xa Inhibitor Start: 12-14-2023 take 1 tablet by mouth in the morning Eliquis 5 MG tablet Take 5 mg by mouth in the morning and 5 mg before bedtime. 12/14/2023 Active atorvastatin 40 mg oral tablet (1 source) HMG-CoA Reductase Inhibitor take 1 tablet by mouth once daily atorvastatin (Lipitor) 40 MG tablet Take 40 mg by mouth 1 (one) time each day at the same time. Active dapagliflozin 10 mg oral tablet (1 source) Sodium-Glucose Cotransporter 2 Inhibitor take 10 mg by mouth once daily Farxiga 10 MG Take 10 mg by mouth 1 (one) time each day at the same time. Active 2 ml dupilumab 150 mg/ml prefilled syringe (1 source) Interleukin-4 Receptor alpha Antagonist Start: 10-08-2022 Dupixent 300 MG/2ML injection Inject 300 mg under the skin every 14 (fourteen) days. 10/08/2022 Active fluticasone propionate 0.05 mg/actuat metered dose nasal spray (1 source) Corticosteroid Start: 06-26-2024 take 1 spray(s) nasal route once daily fluticasone (Flonase) 50 MCG/ACT nasal spray Indications: Mild persistent asthma without complication (CMS/HCC) instill 1 spray IN EACH NOSTRIL DAILY. shake gently, before first use, prime pump and after use clean tip and replace cap 16 g 1 06/26/2024 Active 60 actuat fluticasone propionate 0.5 mg/actuat / salmeterol 0.05 mg/actuat dry powder inhaler (1 source) Corticosteroid, beta2-Adrenergic Agonist Start: 06-12-2024 End: 06-12-2025 take 1 puff(s) by inhalation in the morning Fluticasone-Salmeter ol 500-50 MCG/ACT aerosol powder Indications: Mild persistent asthma without complication (CMS/HCC) Inhale 1 puff in the morning and 1 puff before bedtime. 60 each 3 06/12/2024 06/12/2025 Active 24 hr metoprolol succinate 50 mg extended release oral tablet (1 source) beta-Adrenergic Lynette Start: 06-29-2023 take 1 tablet by mouth every twenty-four hours in the morning metoprolol succinate XL (Toprol-XL) 50 MG 24 hr tablet Take 50 mg by mouth in the morning. 06/29/2023 Active sacubitril 49 mg / valsartan 51 mg oral tablet (1 source) Angiotensin 2 Receptor Lynette Start: 02-19-2023 take 1 tablet by mouth in the morning sacubitril-valsartan (Entresto) 49-51 MG tablet Take 1 tablet by mouth in the morning and 1 tablet in the evening. 02/19/2023 Active spironolactone 25 mg oral tablet (1 source) Aldosterone Antagonist Start: 08-24-2022 take 1 tablet by mouth in the morning spironolactone (Aldactone) 25 MG tablet Take 25 mg by mouth in the morning. 08/24/2022 Active Problems Active Problems Problem Classification Problem Date Documented Da te Episodic/Chronic Asthma (3 sources) Mild persistent asthma, uncomplicated; Translations: [Unspecified asthma, uncomplicated] Onset: 07-29-2012 07-22-2023 Chronic Cancer of prostate (1 source) Malignant tumor of prostate; Translations: [Malignant neoplasm of prostate] Onset: 07-02-2008 03-02-2023 Chronic Cardiac dysrhythmias (3 sources) Atrial fibrillation; Translations: [Unspecified atrial fibrillation] Onset: 07-22-2023 01-17-2024 Chronic Conduction disorders (9 sources) Presence of automatic (implantable) cardiac defibrillator; Translations: [Automatic implantable cardiac defibrillator in situ] Onset: 09-05-2022 Chronic Congestive heart failure; nonhypertensive (10 sources) Chronic systolic (congestive) heart failure; Translations: [Acute on chronic systolic (congestive) heart failure] Onset: 07-02-2022 Resolved: 03-02-2023 Chronic Coronary atherosclerosis and other heart disease (3 sources) Coronary arteriosclerosis; Translations: [Atherosclerotic heart disease of iqugmiut coronary artery without angina pectoris] Onset: 07-06-2022 03-02-2023 Chronic Digestive congenital anomalies (1 source) Other specified congenital malformations of intestine; Translations: [OTH SPEC CONGEN MALFORM INTESTINE] Onset: 01-30-2022 Chronic Disorders of lipid metabolism (6 sources) Mixed hyperlipidemia; Translations: [Hyperlipidemia, unspecified] Onset: 07-02-2008 03-02-2023 Chronic Essential hypertension (4 sources) Benign essential hypertension; Translations: [Essential (primary) hypertension] Onset: 05-27-2011 Resolved: 03-02-2023 03-02-2023 Chronic Headache; including migraine (3 sources) Headache; including migraine; Translations: [HEADACHE UNSPECIFIED] Onset: 07-02-2022 Heart valve disorders (1 source) Combined rheumatic disorders of mitral, aortic and tricuspid valves; Translations: [COMB RHEUMAT D/O MITRL AORTC TRICSP] Onset: 08-20-2022 Chronic Hypertension with complications and secondary hypertension (1 source) Hypertensive heart disease with heart failure; Translations: [HTN HEART DISEASE W/HEART FAIL] Onset: 07-09-2022 Chronic Mood disorders (2 sources) Major depressive disorder, single episode, unspecified; Translations: [Depressive disorder] Onset: 01-30-2022 03-02-2023 Chronic Nutritional deficiencies (2 sources) Vitamin D deficiency, unspecified; Translations: [Vitamin D deficiency] Onset: 01-30-2022 03-02-2023 Chronic Other circulatory disease (2 sources) Hemorrhage, not elsewhere classified; Translations: [Hemorrhage, not elsewhere classified] Onset: 11-13-2024 Episodic Other liver diseases (1 source) Steatosis of liver; Translations: [Fatty (change of) liver, not elsewhere classified] Onset: 08-31-2022 03-02-2023 Chronic Other non-traumatic joint disorders (4 sources) Effusion, left knee; Translations: [EFFUSION LEFT KNEE] Onset: 11-02-2022 Episodic Other nutritional; endocrine; and metabolic disorders (1 source) Obesity, unspecified; Translations: [OBESITY UNSPECIFIED] Onset: 01-30-2022 Chronic Other nutritional; endocrine; and metabolic disorders (1 source) Body mass index (BMI) 30.0-30.9, adult; Translations: [BODY MASS INDEX BMI 30.0-30.9 ADULT] Onset: 01-30-2022 Chronic Other upper respiratory disease (1 source) Allergic rhinitis due to pollen; Translations: [Allergic rhinitis due to pollen] Onset: 03-02-2023 03-02-2023 Chronic Other upper respiratory disease (1 source) Seasonal allergic rhinitis; Translations: [Other seasonal allergic rhinitis] Onset: 08-31-2022 03-02-2023 Chronic Other upper respiratory disease (1 source) Chronic rhinitis; Translations: [Chronic rhinitis] Onset: 03-02-2023 Resolved: 03-02-2023 03-02-2023 Chronic Other upper respiratory infections (1 source) Chronic pansinusitis; Translations: [Chronic pansinusitis] Onset: 03-02-2023 03-02-2023 Chronic Mishel-; endo-; and myocarditis; cardiomyopathy (except that caused by tuberculosis or sexually transmitted disease) (5 sources) Cardiomyopathy; Translations: [Other cardiomyopathies] Onset: 09-01-2022 03-02-2023 Chronic Rheumatoid arthritis and related disease (1 source) Inflammatory polyarthropathy; Translations: [Inflammatory polyarthropathy] Onset: 12-03-2022 Chronic Unclassified (1 source) CONTACT W/AND (SUSP) EXPOS COVID-19; Translations: [CONTACT W/AND (SUSP) EXPOS COVID-19] Onset: 07-09-2022 Past or Other Problems Problem Classification Problem Date Documented Da te Episodic/Chronic Cancer of prostate (2 sources) Personal history of malignant neoplasm of prostate; Translations: [History of malignant neoplasm of prostate] Onset: 07-03-2022 Resolved: 03-02-2023 03-02-2023 Episodic Diabetes mellitus without complication (2 sources) Prediabetes; Translations: [Prediabetes] Onset: 07-09-2022 03-02-2023 Episodic E Codes: Struck by; against (1 source) Striking against or struck by other objects, initial encounter; Translations: [STRIKING AGNST/STRUCK OTH OBJ INIT] Onset: 07-09-2022 Episodic Fluid and electrolyte disorders (1 source) Hypokalemia; Translations: [HYPOKALEMIA] Onset: 07-09-2022 Episodic Immunizations and screening for infectious disease (1 source) Encounter for immunization; Translations: [ENCOUNTER FOR IMMUNIZATION] Onset: 07-09-2022 Episodic Other aftercare (1 source) Other log check scaler (current) drug therapy; Translations: [OTH SNF CURRENT DRUG THERAPY] Onset: 07-09-2022 Episodic Other connective tissue disease (4 sources) Pain in left foot; Translations: [PAIN IN LEFT FOOT] Onset: 08-18-2022 Episodic Other injuries and conditions due to external causes (1 source) Unspecified injury of head, initial encounter; Translations: [UNSPECIFIED INJURY HEAD INITIAL ENC] Onset: 07-09-2022 Episodic Other nutritional; endocrine; and metabolic disorders (1 source) Hypomagnesemia; Translations: [Hypomagnesemia] Onset: 07-03-2022 Resolved: 03-02-2023 03-02-2023 Chronic Other screening for suspected conditions (not mental disorders or infectious disease) (4 sources) Encounter for screening for malignant neoplasm of colon; Translations: [ENC SCREEN MALIG NEOPLASM COLON] Onset: 01-28-2022 Episodic Other upper respiratory disease (1 source) Polyp of nasal cavity and/or nasal sinus; Translations: [Nasal polyp, unspecified] Onset: 03-02-2023 03-02-2023 Episodic Screening and history of mental health and substance abuse codes (1 source) Personal history of nicotine dependence; Translations: [PERSONAL HISTORY OF NICOTINE DEPEND] Onset: 07-09-2022 Episodic Syncope (2 sources) Syncope and collapse; Translations: [Syncope and collapse] Onset: 07-02-2022 Resolved: 03-02-2023 03-02-2023 Episodic Results Test Name Value Interpretation Reference Range Facility BASIC METABOLIC PANELon 05- Anion gap [Moles/Vol] 19 mmol/L Normal 7-20 [facility] Comment on above: Performed By: #### L [id number] ####[facility] (BEAKER)[address] [place] [address] Calcium [Mass/Vol] 8.8 mg/dL Normal 8.6-10.3 [facility] Comment on above: Performed By: #### L [id number] ####[facility] ([facility])[address] [place] [address] Chloride [Moles/Vol] 101 mmol/L Normal 98-107 [facility] Comment on above: Performed By: #### L [id number] ####[facility] ([facility])[address] [place] [address] CO2 [Moles/Vol] 24 mmol/L Normal 21-31 [facility] Comment on above: Performed By: #### L [id number] ####[facility] ([facility])[address] [place] [address] Creatinine [Mass/Vol] 0.93 mg/dL Normal 0.70-1.30 [facility] Comment on above: Performed By: #### L [id number] ####[facility] ([facility])[address] [place] [address] GLOMERULAR FILTRATION RATE ML/MIN/1.73 SQ M.PREDICTED 88.9 mL/min/1.73m*2 Normal >60.0 [facility] Comment on above: Result Comment: [facility]???s estimated glomerular filtration rate (eGFR) will no [...] group of individuals. Performed By: #### L [id number] ####[facility] ([facility])[address] [place] [address] Glucose [Mass/Vol] 108 mg/dL High 70-100 [facility] Comment on above: Performed By: #### L [id number] ####[facility] ([facility])[address] [place] [address] Potassium [Moles/Vol] 4.5 mmol/L Normal 3.5-5.1 [facility] Comment on above: Performed By: #### L [id number] ####[facility] ([facility])[address] [place] [address] Sodium [Moles/Vol] 139 mmol/L Normal 136-145 [facility] Comment on above: Performed By: #### L [id number] ####[facility] ([facility])[address] [place] [address] Urea nitrogen [Mass/Vol] 16 mg/dL Normal 7-25 [facility] Comment on above: Performed By: #### L [id number] ####[facility] ([facility])[address] [place] [address] UREA NITROGEN/CREATININE (MASS RATIO) IN SER/PLAS 17.2 Normal [facility] Comment on above: Performed By: #### L [id number] ####[facility] ([facility])[address] [place] [address] CBCon 12-01-2024 Erythrocyte distribution width (RBC) [Ratio] 13.9 % Normal 11.5-15.0 [facility] Comment on above: Performed By: #### L [id number] ####[facility] ([facility])[address] [place] [address] ERYTHROCYTE MEAN CORPUSCULAR HEMOGLOBIN CONCENTRATION (G/DL) BY AUTOMATED 34.2 g/dL Normal 32.0-35.0 [facility] Comment on above: Performed By: #### L [id number] ####[facility] ([facility])[address] [place] [address] Hematocrit (Bld) [Volume fraction] 40.9 % Normal 39.0-50.0 [facility] Comment on above: Performed By: #### L [id number] ####[facility] ([facility])[address] [place] [address] Hemoglobin (Bld) [Mass/Vol] 14.0 g/dL Normal 13.0-17.0 [facility] Comment on above: Performed By: #### L [id number] ####[facility] ([facility]ER)[address] [place] [address] MCH (RBC) [Entitic mass] 31.5 pg Normal 27.0-33.0 [facility] Comment on above: Performed By: #### L [id number] ####[facility] ([facility])[address] [place] [address] MCV (RBC) [Entitic vol] 92.1 fL Normal 82.0-98.0 [facility] Comment on above: Performed By: #### L [id number] ####[facility] ([facility])[address] [place] [address] PLATELETS (10*3/UL) IN BLOOD AUTOMATED COUNT 167 10*3/uL Normal 150-400 [facility] Comment on above: Performed By: #### L [id number] ####[facility] ([facility])[address] [facility] [address] RBC (Bld) [#/Vol] 4.44 10*6/uL Normal 4.20-5.70 [facility] Comment on above: Performed By: #### L [id number] ####[facility] ([facility])[address] [place] [address] WBC (Bld) [#/Vol] 6.95 10*3/uL Normal 4.00-10.60 [facility] Comment on above: Performed By: #### L [id number] ####[facility] ([facility])[address] [place] [address] HPon 12-01-2024 HP H&P reviewed. The patient was examined and there are no changes to the H&P. [facility] NURSNOTEon 12-01-2024 NURSNOTE RN educated pt on discharge instructions. RN encouraged pt to voice any questions or concerns. Pt verbalizes no questions or concerns at this time. Pt was wheeled off unit with all belongings. Pt instructed to only consume sips of water until 14:30 then soft foods after 14:30 and the rest of the day. [facility] NURSNOTE Bedside swallow stud y completed and passed. [facility] Telephoneon 11-23-2024 Telephone [id number] Dominik Doherty 1955 M Date Provider Department Center 11/23/2024 IlianaKennediCARY REINALDO [facility] Family History Problem Relation Age of Onset Other Mother Family Status - Relation Status Age at Mother Normal [facility] Orders Onlyon 11-19-2024 Orders Only [id number] Dominik Doherty ert 1955 M Date Provider Department Center 11/19/2024 PAULO DAVIS [facility] CARD [facility] Family History Problem Relation Age of Onset Other Mother Family Status - Relation Status Age at Mother Normal [facility] HPon 11-13-2024 [facility] Cardiology - [facility] Subjective Kristy Doherty is a 69 y.o. year old male patient being seen for easy bleeding on Eliquis. says she stopped his Entresto 5 days ago because they both thought that was his blood thinner. wants to know why his bleeding improved after stopping Entresto. Patient denies chest pain, SOB, and palpitations. Patient Active Problem List Diagnosis New onset of congestive heart failure (CMS/HCC) Asthma History of malignant neoplasm of prostate Hypomagnesemia Hypertension Syncope and collapse Coronary artery disease involving iqugmiut coronary artery of iqugmiut heart without angina pectoris Chronic systolic heart failure (CMS/HCC) Depressive disorder Dyslipidemia Prediabetes Seasonal allergic rhinitis Steatosis of liver Vitamin D deficiency Nonischemic cardiomyopathy (CMS/HCC) ICD (implantable cardioverter-defibrilla tor) in place Benign essential hypertension Chronic pansinusitis [...] seen in follow up. He is a 69-year-old man with systolic heart failure. He has prior history of hypertension. In June 2022 he was admitted to the [facility] with syncope and echocardiogram showed new onset systolic heart failure with ejection fraction of 25%. Carotid ultrasound showed no significant stenosis. CT head was negative for intracranial pathology. He ended up being transferred to [facility] and underwent cardiac catheterization that [...] rhythm strips. He then underwent a dual-chamber [employer] ICD placement on 09/04/2022. He was evaluated in cardiology clinic on 05/11/[address] Bobo Raymond and due to device discovered atrial fibrillation he was started on Eliquis for anticoagulation. He is seen in follow-up. At last visit I increased Entresto dosage for further optimization of GDMT. Follow-up BMP in July 2024 showed stable renal function. Today he reports that he has been having significant issues with upper extremity ecchymosis and bleeding. He had large ecchymoses in both right and left arms without any trauma. He says that he would form and small bullae that we will start bleeding and requires a lot of pressure to stop. Otherwise he has been doing well without any significant chest pain, shortness of breath or palpitations. Review of Systems Hematologic/Lymphatic: Bruises/bleeds easily. Musculoskeletal: Positive for arthritis, back pain and myalgias. All other systems reviewed and are negative. Objective Visit Vitals BP 148/88 (BP Location: Left arm, Patient Position: Sitting) Pulse 77 Ht 1.727 m (5' 8 ) Wt 88 kg (194 lb) SpO2 96% BMI 29.50 kg/m??? Smoking Status Former BSA 2.05 m??? Physical Exam Constitutional: Appearance: He is [...] Skin: General: Skin is warm and dry. Comments: Large ecchymotic lesions seen in the left forearm and underneath the right elbow. In the center there are areas of crust formation at the site of bleeding vessel. Neurological: General: No focal deficit present. Mental Status: He is alert and oriented to person, place, and time. Psychiatric: Mood and Affect: Mood normal. Behavior: Behavior is cooperative. Judgment: Judgment normal. Allergies Foreign (more content not included)... Normal [facility] Office Visiton 11-13-2024 Follow-up visit [id number] Dominik Doherty berna 1955 M Date Provider Department Center 11/13/2024 Shania-BORIS KIM CARD [facility] Family History Problem Relation Age of Onset Other Mother Family Status - Relation Status Age at Mother Level of Service:52059 [place] OFFICE/OUTPATIENT ESTABLISHED HIGH MDM 40 MIN Normal [facility] 36on 08-17-2024 36 Regarding lab result s from 08/16/2024: MD Zaida Currie MA His blood test was okay. Continue same and follow-up as planned. Patient made aware. Normal [facility] ALL BASIC METABOLIC PANELon 08-16-2024 Anion gap [Moles/Vol] 13.5 mmol/L [facility] Calcium [Mass/Vol] 8.8 mg/dL 8.5 - 10. 1 mg/dL [facility] Chloride [Moles/Vol] 101 mmol/L 98 - 10 7 mmol/L [facility] CO2 [Moles/Vol] 29.5 mmol/L 21.0 - 32.0 mmol/L [facility] Creatinine [Mass/Vol] 1.3 mg/dL 0.70 - 1.30 mg/dL [facility] GFR/1.73 sq M.predicted CKD-EPI (S/P/Bld) [Vol rate/Area] >60 >=60 mL/min/1.73m 2 [facility] Glucose [Mass/Vol] 129 mg/dL High 74 - 106 mg/dL [facility] Interpretation and review of laboratory results Abnormal [facility] Potassium [Moles/Vol] 4 mmol/L 3.5 - 5.1 mmol/L [facility] Sodium [Moles/Vol] 140 mmol/L 136 - 145 mmol/L [facility] TBH EGFR-NON AF TAJIK 55 Low >=60 mL/min/1.73m 2 [facility] Urea nitrogen [Mass/Vol] 18 mg/dL 7.0 - 18.0 mg/dL [facility] Urea nitrogen/Creatinine [Mass ratio] 13.8 mg/mg [facility] Office Visiton 07-03-2024 Follow-up visit [id number] ChasDominik ert 1955 M Date Provider Department Center 07/03/2024 BORIS COONEY Family History Problem Relation Age of Onset Other Mother Family Status - Relation Status Age at Mother Level of Service:67390 [place] OFFICE/OUTPATIENT ESTABLISHED MOD MDM 30 MIN Normal [facility] 36on 01-19-2024 36 Regarding lab result s from 01/17/2024: Shania Buenrostro, STEPHANIE Farias MA Labs all look very good, continue all meds, no concerns Patient informed and he verbalized understanding. Normal [facility] 37on 01-06-2024 37 *Continue heart heal thy [...] Complete blood count- must be fasting Normal [facility] Office Visiton 01-06-2024 Follow-up visit [id number] Dominik Doherty ert 1955 M Date Provider Department Center 01/06/2024 120-SHANIA BUENROSTRO Family History Problem Relation Age of Onset Other Mother Family Status - Relation Status Age at Mother Level of Service:[address] [place] OFFICE/OUTPATIENT ESTABLISHED MOD MDM 30 MIN Normal [facility] COLLIN Antinuclear Antibodieson 12-03-2022 Antinuclear Abs, IFA Positive Critically abnormal . [facility] Comment on above: Result Comment: Nega tive <1:80 Borderline 1:80 Positive >1:80 Performed By: #### A NA #### [facility] , #### PTH, CRP, CBC, ESR, URIC, CMP #### [facility] [address] Homogeneous Pattern 1:80 Normal . [facility] Comment on above: Result Comment: ICAP nomenclature: AC-1 Performed By: #### A NA #### [facility] , #### PTH, CRP, CBC, ESR, URIC, CMP #### [facility] [address] Note 1 Normal . [facility] Comment on above: Result Comment: For more [...] titers Nucleosomes, Histones Drug-induced SLE Speckled Sm, [facility] SPECIALIST, SCL-70, SLE,MCTD,PSS (diffuse form), SS-A/SS-B Sjogrens Nucleolar SCL-70, PM-1/SCL High titers Scleroderma, PM/DM Centromere Centromere PSS (limited form) w/Crest syndrome variable Nuclear Dot Sp100,m88-voluru Primary Biliary Cirrhosis Nuclear GP210, Primary Biliary Cirrhosis Membrane flor A,B,C Performed at: - [facility] [address] [id number] Print Production Associate: John Acosta PhD, Phone: [phone] PERFORMED BY: [place] [address] PATHOLOGIST BREADMAN ROMULO SERRA M.D. Performed By: #### A NA #### [facility] , #### PTH, CRP, CBC, ESR, URIC, CMP #### [place] [id number] [place] C-Reactive Proteinon 023 C-Reactive Protein 0.6 mg/dL High 0.0-0.5 [facility] Comment on above: Result Comment: PERF ORMED BY: [place] [address] PATHOLOGIST BREADMAN ROMULO SERRA M.D. Performed By: #### A NA #### [facility] , #### PTH, CRP, CBC, ESR, URIC, CMP #### [address] Complete Blood Count Auto Di ffon 12-03-2022 Basophils (Bld) [#/Vol] 0.1 10*3/uL Normal 0.0-0.2 [facility] Comment on above: Performed By: #### A NA #### [facility] , #### PTH, CRP, CBC, ESR, URIC, CMP #### [address] Basophils/100 WBC (Bld) 1.1 % Normal . [facility] Comment on above: Performed By: #### A NA #### [facility] , #### PTH, CRP, CBC, ESR, URIC, CMP #### [address] Eosinophils (Bld) [#/Vol] 0.3 10*3/uL Normal 0.0-0.45 [facility] Comment on above: Performed By: #### A NA #### [facility] , #### PTH, CRP, CBC, ESR, URIC, CMP #### [place] [address] [place] Eosinophils/100 WBC (Bld) 4.2 % Normal . [facility] Comment on above: Performed By: #### A NA #### [facility] , #### PTH, CRP, CBC, ESR, URIC, CMP #### [address] Erythrocyte distribution width (RBC) [Ratio] 16.3 % High 12.0-14.8 [facility] Comment on above: Performed By: #### A NA #### [facility] , #### PTH, CRP, CBC, ESR, URIC, CMP #### [address] Hematocrit (Bld) [Volume fraction] 40.2 % Normal 38.8-50.0 [facility] Comment on above: Performed By: #### A NA #### [facility] , #### PTH, CRP, CBC, ESR, URIC, CMP #### [address] Hemoglobin (Bld) [Mass/Vol] 13.3 g/dL Normal 13.0-17.0 [facility] Comment on above: Performed By: #### A NA #### [facility] , #### PTH, CRP, CBC, ESR, URIC, CMP #### [address] Lymphocytes (Bld) [#/Vol] 2.5 10*3/uL Normal 1.00-4.8 [facility] Comment on above: Performed By: #### A NA #### [facility] , #### PTH, CRP, CBC, ESR, URIC, CMP #### [address] Lymphocytes/100 WBC (Bld) 31.3 % Normal . [facility] Comment on above: Performed By: #### A NA #### [facility] , #### PTH, CRP, CBC, ESR, URIC, CMP #### [address] MCH (RBC) [Entitic mass] 29.4 pg Normal 27.5-35.2 [facility] Comment on above: Performed By: #### A NA #### [facility] , #### PTH, CRP, CBC, ESR, URIC, CMP #### [address] MCV (RBC) [Entitic vol] 88.7 fL Normal 83.5-101 [facility] Comment on above: Performed By: #### A NA #### [facility] , #### PTH, CRP, CBC, ESR, URIC, CMP #### [address] Mean Corpuscular HGB Conc 33.1 g/dL Normal 32.5-35.6 [facility] Comment on above: Performed By: #### A NA #### [facility] , #### PTH, CRP, CBC, ESR, URIC, CMP #### [address] Monocytes (Bld) [#/Vol] 1.0 10*3/uL High 0.0-0.8 [facility] Comment on above: Performed By: #### A NA #### [facility] , #### PTH, CRP, CBC, ESR, URIC, CMP #### [address] Monocytes/100 WBC (Bld) 12.9 % Normal . [facility] Comment on above: Performed By: #### A NA #### [facility] , #### PTH, CRP, CBC, ESR, URIC, CMP #### [address] Neutrophils (Bld) [#/Vol] 4.1 10*3/uL Normal 1.8-7.7 [facility] Comment on above: Performed By: #### A NA #### [facility] , #### PTH, CRP, CBC, ESR, URIC, CMP #### [place] [address] [place] Neutrophils/100 WBC (Bld) 50.5 % Normal . [facility] Comment on above: Performed By: #### A NA #### [facility] , #### PTH, CRP, CBC, ESR, URIC, CMP #### [facility] [address] NRBC% 0.0 /100{WBC} Normal 0-0.5 [facility] Comment on above: Performed By: #### A NA #### [facility] , #### PTH, CRP, CBC, ESR, URIC, CMP #### [address] Platelet mean volume (Bld) [Entitic vol] 8.7 fL Normal 6.6-10.1 [facility] Comment on above: Performed By: #### A NA #### [facility] , #### PTH, CRP, CBC, ESR, URIC, CMP #### [address] Platelets (Bld) [#/Vol] 285 10*3/uL Normal 150-450 [facility] Comment on above: Performed By: #### A NA #### [facility] , #### PTH, CRP, CBC, ESR, URIC, CMP #### [address] RBC (Bld) [#/Vol] 4.53 10*6/uL Normal 3.90-5.60 [facility] Comment on above: Performed By: #### A NA #### [facility] , #### PTH, CRP, CBC, ESR, URIC, CMP #### [facility] [address] [place] [address] WBC (Bld) [#/Vol] 8.0 10*3/uL Normal 4.1-10.5 [facility] Comment on above: Performed By: #### A NA #### [facility] , #### PTH, CRP, CBC, ESR, URIC, CMP #### [facility] [address] [place] [address] Comprehensive Metabolic Pane claritza 12-03-2022 Albumin [Mass/Vol] 4.2 g/dL Normal 3.5-5.7 [facility] Comment on above: Performed By: #### A NA #### [facility] , #### PTH, CRP, CBC, ESR, URIC, CMP #### [address] Albumin/Globulin [Mass ratio] 1.3 {ratio} Normal [facility] Comment on above: Performed By: #### A NA #### [facility] , #### PTH, CRP, CBC, ESR, URIC, CMP #### [address] ALP [Catalytic activity/Vol] 69 U/L Normal 34-104 [facility] Comment on above: Performed By: #### A NA #### [facility] , #### PTH, CRP, CBC, ESR, URIC, CMP #### [address] ALT [Catalytic activity/Vol] 15 U/L Normal 7-52 [facility] Comment on above: Performed By: #### A NA #### [facility] , #### PTH, CRP, CBC, ESR, URIC, CMP #### [facility] [address] [place] [address] Anion gap [Moles/Vol] 9.9 mmol/L Normal 6.0-15.0 [facility] Comment on above: Performed By: #### A NA #### [facility] , #### PTH, CRP, CBC, ESR, URIC, CMP #### [address] AST [Catalytic activity/Vol] 24 U/L Normal 13-39 [facility] Comment on above: Performed By: #### A NA #### [facility] , #### PTH, CRP, CBC, ESR, URIC, CMP #### [address] Bilirubin [Mass/Vol] 0.4 mg/dL Normal 0.3-1.0 [facility] Comment on above: Performed By: #### A NA #### [facility] , #### PTH, CRP, CBC, ESR, URIC, CMP #### [address] Calcium [Mass/Vol] 9.6 mg/dL Normal 8.6-10.3 [facility] Comment on above: Performed By: #### A NA #### [facility] , #### PTH, CRP, CBC, ESR, URIC, CMP #### [address] Chloride [Moles/Vol] 103 mmol/L Normal 98-107 [facility] Comment on above: Performed By: #### A NA #### [facility] , #### PTH, CRP, CBC, ESR, URIC, CMP #### [address] CO2 [Moles/Vol] 29.5 mmol/L Normal 21.0-31.0 [facility] Comment on above: Performed By: #### A NA #### [facility] , #### PTH, CRP, CBC, ESR, URIC, CMP #### [address] Creatinine [Mass/Vol] 1.06 mg/dL Normal 0.70-1.30 [facility] Comment on above: Performed By: #### A NA #### [facility] , #### PTH, CRP, CBC, ESR, URIC, CMP #### [facility] [address] [place] [address] [place] GFR/1.73 sq M.predicted MDRD (S/P/Bld) [Vol rate/Area] mL/min/{1.73_m2} Normal [facility] Comment on above: Performed By: #### A NA #### [facility] , #### PTH, CRP, CBC, ESR, URIC, CMP #### [facility] [address] Globulin (S) [Mass/Vol] 3.2 g/dL Normal [facility] Comment on above: Performed By: #### A NA #### [facility] , #### PTH, CRP, CBC, ESR, URIC, CMP #### [address] Glucose [Mass/Vol] 81 mg/dL Normal 70-100 [facility] Comment on above: Result Comment: [facility] Glucose Reference Range is dependent on time and content of last meal. Glucose of more than 200 mg/dL in a nonstressed, ambulatory subject supports the diagnosis of Diabetes Mellitus. ADA recommended reference range Performed By: #### A NA #### [facility] , #### PTH, CRP, CBC, ESR, URIC, CMP #### [address] Potassium [Moles/Vol] 4.4 mmol/L Normal 3.5-5.1 [facility] Comment on above: Performed By: #### A NA #### [facility] , #### PTH, CRP, CBC, ESR, URIC, CMP #### [address] Protein [Mass/Vol] 7.4 g/dL Normal 6.4-8.9 [facility] Comment on above: Performed By: #### A NA #### [facility] , #### PTH, CRP, CBC, ESR, URIC, CMP #### [place] [address] [place] Sodium [Moles/Vol] 138 mmol/L Normal 136-145 [facility] Comment on above: Performed By: #### A NA #### [facility] , #### PTH, CRP, CBC, ESR, URIC, CMP #### [facility] [address] [place] [address] Urea nitrogen [Mass/Vol] 19 mg/dL Normal 7-25 [facility] Comment on above: Performed By: #### A NA #### [facility] , #### PTH, CRP, CBC, ESR, URIC, CMP #### [address] Erythrocyte Sedimentation Ra nishant 12-03-2022 ESR (Bld) [Velocity] 43 mm/h High 0-19 [facility] Comment on above: Result Comment: PERF ORMED BY: [place] [address] PATHOLOGIST BREADMAN ROMULO SERRA M.D. Performed By: #### A NA #### [facility] , #### PTH, CRP, CBC, ESR, URIC, CMP #### [facility] [address] [place] [address] Parathyroid Hormone Intacton 12-03-2022 Parathyroid Hormone Intact 34.1 pg/mL Normal 12-88 [facility] Comment on above: Result Comment: PERF ORMED BY: [place] [address] PATHOLOGIST BREADMAN ROMULO SERRA M.D. Performed By: #### A NA #### [facility] , #### PTH, CRP, CBC, ESR, URIC, CMP #### [facility] [address] [place] [address] Uric Acidon 12-03-2022 Urate [Mass/Vol] 3.5 mg/dL Normal 2.4-7.6 [facility] Comment on above: Performed By: #### A NA #### [facility] , #### PTH, CRP, CBC, ESR, URIC, CMP #### [address] XR foot LT 2Von 12-03-2022 XR foot LT 2V [facility] [address] XRay Report Signed Patient: Kristy Doherty MR#: [id number] 81 : 1955 Acct:[id number] Age/Sex: 67 / M ADM Date: 12/03/22 [...] Bonnie Grewal M.D.12/03/2022 4:56 PM Dictation Location: [place] [address] Transcribed By: [facility] 12/03/221655 Dictated By: Bonnie Grewal II, MD 12/03/221654 Signed By: 12/03/22 165 [facility] XR hand BI 2Von 12-03-2022 XR hand BI 2V [facility] [place] [id number] XRay Report Signed Patient: Kristy Doherty MR#: [id number] 81 : 1955 Acct:[id number] Age/Sex: 67 / M ADM Date: 12/03/22 [...] Bonnie Grewal M.D.12/03/2022 5:29 PM Dictation Location: [place] [address] Transcribed By: [facility] 12/03/22 172 Dictated By: Bonnie Grewal II, MD 12/03/22 1651 Signed By: 12/03/22 172 Normal [facility] XR knee LT 2Von 12-03-2022 XR knee LT 2V [facility] [place] [address] [place] [address] XRay Report Signed Patient: Kristy Doherty MR#: [id number] 81 : 1955 Acct:[id number] Age/Sex: 67 / M ADM Date: 12/03/22 Loc: [facility] Room: Type: [facility] Attending Dr: Kristy Beatty MD Copies to: [...] Bonnie Grewal M.D.12/03/2022 4:54 PM Dictation Location: [place] [address] Transcribed By: [facility] 12/03/221653 Dictated By: Bonnie Grewal II, MD 12/03/221652 Signed By: 12/03/221653 Normal [facility] COLLIN by IFAon 11-04-2022 Antinuclear Antibodies, IFA Negative Normal [facility] Comment on above: Result Comment: Nega tive <1:80 Borderline 1:80 Positive >1:80 ICAP nomenclature: AC-0 For more information about Hep-2 cell patterns use ANApatterns.org, the official website for the International Consensus on Antinuclear Antibody (COLLIN) Patterns (ICAP). Performed By: #### C AILYN BMP #### [facility] [address] [place] [address] Dr. Skylar Chadwick ANTISTREPTOLYSIN O AB (ASO)o n 11-03-2022 Antistreptolysin O Ab 326.2 IU/mL Critically high 0.0-200.0 [facility] Comment on above: Performed By: #### A SOAB #### [facility] [address] [place] [address] Dr. Skylar Chadwick RHEUMATOID FACTORon 11-04-19 RA Latex Turbid. 14.3 IU/mL Critically high <14.0 [facility] Comment on above: Performed By: #### C AILYN BMP #### [facility] [address] [place] [address] Dr. Skylar Chadwick CBC AUTO DIFFon 11-02-2022 BASO # 0.1 103/ul Normal 0.0-0.1 [facility] Comment on above: Performed By: #### C AILYN, BMP #### [facility] [address] [place] [address] Dr. Skylar Chadwick Basophils/100 WBC (Bld) 0.7 % Normal 0.2-2.0 [facility] Comment on above: Performed By: #### C AILYN, BMP #### [facility] [address] [place] [address] Dr. Skylar Chadwick EO # 0.2 103/ul Normal 0.0-0.7 [facility] Comment on above: Performed By: #### C AILYN, BMP #### [facility] [address] [place] [address] Dr. Skylar Chadwick Eosinophils/100 WBC (Bld) 2.8 % Normal 0.9-7.0 [facility] Comment on above: Performed By: #### C AILYN, BMP #### [facility] [address] [place] [address] Dr. Skylar Chadwick Erythrocyte distribution width (RBC) [Ratio] 15.1 % Critically high 11.0-15.0 [facility] Comment on above: Performed By: #### C AILYN, BMP #### [facility] [address] [place] [address] Dr. Skylar Chadwick Hematocrit (Bld) [Volume fraction] 37.2 % Critically low 42.0-54.0 [facility] Comment on above: Performed By: #### C AILYN, BMP #### [facility] [address] [place] [address] Dr. Skylar Chadwick Hemoglobin (Bld) [Mass/Vol] 12.2 g/dL Critically low 14.0-18.0 [facility] Comment on above: Performed By: #### C AILYN, BMP #### [facility] [address] [place] [address] Dr. Skylar Chadwick IG # 0.02 10e3/ul Normal 0.00-0.03 [facility] Comment on above: Performed By: #### C AILYN, BMP #### [facility] [address] [place] [address] Dr. Skylar Chadwick IG % 0.3 % Normal 0.0-0.5 [facility] Comment on above: Performed By: #### C AIYLN, BMP #### [facility] [address] [place] [address] Dr. Skylar Chadwick LYMPH # 2.2 103/ul Normal 1.2-3.8 [facility] Comment on above: Performed By: #### C AILYN, BMP #### [facility] [address] [place] [address] Dr. Skylar Chadwick Lymphocytes/100 WBC (Bld) 30.3 % Normal 20.5-60.0 [facility] Comment on above: Performed By: #### C CARLOS ENRIQUEM, BMP #### [facility] [address] [place] [address] Dr. Skylar Chadwick MANUAL DIFF REQ NO Normal [facility] Comment on above: Performed By: #### C CARLOS ENRIQUEM, BMP #### [facility] [address] [place] [address] Dr. Skylar Chadwick MCH (RBC) [Entitic mass] 29.3 pg Normal 25.9-34.0 [facility] Comment on above: Performed By: #### C AILYN, BMP #### [facility] [address] [place] [address] Dr. Skylar Chadwick MCHC (RBC) [Mass/Vol] 32.8 g/dL Normal 29.9-35.2 [facility] Comment on above: Performed By: #### C AILYN, BMP #### [facility] [address] [place] [address] Dr. Skylar Chadwick MCV (RBC) [Entitic vol] 89.2 fL Normal 80.0-94.0 [facility] Comment on above: Performed By: #### C AILYN, BMP #### [facility] [address] [place] [address] Dr. Skylar Chadwick MONO # 0.8 103/ul Normal 0.3-0.8 [facility] Comment on above: Performed By: #### C AILYN, BMP #### [facility] [address] [place] [address] Dr. Skylar Chadwick Monocytes/100 WBC (Bld) 10.9 % Normal 1.7-12.0 [facility] Comment on above: Performed By: #### C AILYN, BMP #### [facility] [address] [place] [address] Dr. Skylar Chadwick NEUT # 4.0 103/ul Normal 1.4-6.5 [facility] Comment on above: Performed By: #### C MADM, BMP #### [facility] [address] [place] [address] [address] Skylar Chadwick Neutrophils/100 WBC (Bld) 55.0 % Normal 43.0-75.0 [facility] Comment on above: Performed By: #### C MADM, BMP #### [facility] [address] [place] [address] [address] Skylar Chadwick Platelet mean volume (Bld) [Entitic vol] 10.3 fL Normal 9.5-13.5 [facility] Comment on above: Performed By: #### C MADM, BMP #### [facility] [address] [place] [address] [address] Skylar Chadwick PLT 289 103/ul Normal 150-450 [facility] Comment on above: Performed By: #### C MADM, BMP #### [facility] [address] [place] [address] [address] Skylar Chadwick RBC 4.17 106/ul Critically low 4.70-6.10 [facility] Comment on above: Performed By: #### C MADM, BMP #### [facility] [address] [place] [address] [address] Skylar Chadwick WBC 7.2 103/ul Normal 4.0-11.0 [facility] Comment on above: Performed By: #### C MADM, BMP #### [facility] [address] [place] [address] [address] Skylar Chadwick CRPon 11-02-2022 CRP 1.3 mg/dL Critically high <=1.0 [facility] Comment on above: Performed By: #### U EFRAÍN, CMP, CRP #### [facility] [address] [place] [address] [address] Skylar Chadwick PROF 14(COMP METB)on 023 Albumin [Mass/Vol] 3.4 g/dL Normal 3.4-5.0 [facility] Comment on above: Performed By: #### U EFRAÍN, CMP, CRP #### [facility] [address] [place] [address] [address] Skylar Chadwick Albumin/Globulin [Mass ratio] 0.7 {ratio} Normal [facility] Comment on above: Performed By: #### U EFRAÍN, CMP, CRP #### [facility] [address] [place] [address] [address] Skylar Chadwick ALP [Catalytic activity/Vol] 72 U/L Normal 46-116 [facility] Comment on above: Performed By: #### U EFRAÍN, CMP, CRP #### [facility] [address] [place] [address] [address] Skylar Chadwick ALT [Catalytic activity/Vol] 28 U/L Normal 16-63 [facility] Comment on above: Performed By: #### U EFRAÍN, CMP, CRP #### [facility] [address] [place] [address] [address] Skylar Chadwick Anion gap [Moles/Vol] 9.9 mmol/L Normal [facility] Comment on above: Performed By: #### U EFRAÍN, CMP, CRP #### [facility] [address] [place] [address] [address] Skylar Chadwick AST [Catalytic activity/Vol] 19 U/L Normal 15-37 [facility] Comment on above: Performed By: #### U EFRAÍN, CMP, CRP #### [facility] [address] [place] [address] [address] Skylar Chadwick Bilirubin [Mass/Vol] 0.3 mg/dL Normal 0.2-1.0 [facility] Comment on above: Performed By: #### U EFRAÍN, CMP, CRP #### [facility] [address] [place] [address] [address] Skylar Chadwick Calcium [Mass/Vol] 9.8 mg/dL Normal 8.5-10.1 [facility] Comment on above: Performed By: #### U EFRAÍN, CMP, CRP #### [facility] [address] [place] [address] [address] Skylar Chadwick Chloride [Moles/Vol] 103 mmol/L Normal 98-107 [facility] Comment on above: Performed By: #### U EFRAÍN, CMP, CRP #### [facility] [address] [place] [address] [address] Skylar Chadwick CO2 [Moles/Vol] 31.0 mmol/L Normal 21.0-32.0 [facility] Comment on above: Performed By: #### U EFRAÍN, CMP, CRP #### [facility] [address] [place] [address] [address] Skylar Chadwick Creatinine [Mass/Vol] 1.14 mg/dL Normal 0.70-1.30 [facility] Comment on above: Performed By: #### U EFRAÍN, CMP, CRP #### [facility] [address] [place] [address] [address] Skylar Chadwick EGFR-AF TAJIK >60 Normal >=60 [facility] Comment on above: Performed By: #### U EFRAÍN, CMP, CRP #### [facility] [address] [place] [address] [address] Skylar Chadwick EGFR-NON AF TAJIK >60 Normal >=60 [facility] Comment on above: Performed By: #### U EFRAÍN, CMP, CRP #### [facility] [address] [place] [address] [address] Skylar Chadwick Globulin (S) [Mass/Vol] 4.8 g/dL Normal [facility] Comment on above: Performed By: #### U EFRAÍN, CMP, CRP #### [facility] [address] [place] [address] [address] Skylar Chadwick Glucose [Mass/Vol] 88 mg/dL Normal 74-106 [facility] Comment on above: Performed By: #### U EFRAÍN, CMP, CRP #### [facility] [address] [place] [address] [address] Skylar Chadwick Potassium [Moles/Vol] 3.9 mmol/L Normal 3.5-5.1 [facility] Comment on above: Performed By: #### U EFRAÍN, CMP, CRP #### [facility] [address] [place] [address] [address] Skylar Chadwick Protein [Mass/Vol] 8.2 g/dL Normal 6.4-8.2 [facility] Comment on above: Performed By: #### U EFRAÍN, CMP, CRP #### [facility] [address] [place] [address] [address] Skylar Chadwick Sodium [Moles/Vol] 140 mmol/L Normal 136-145 [facility] Comment on above: Performed By: #### U EFRAÍN, CMP, CRP #### [facility] [address] [place] [address] [address] Skylar Chadwick Urea nitrogen [Mass/Vol] 18.0 mg/dL Normal 7.0-18.0 [facility] Comment on above: Performed By: #### U EFRAÍN, CMP, CRP #### [facility] [address] [place] [address] [address] Skylar Chadwick Urea nitrogen/Creatinine [Mass ratio] 15.8 mg/mg Normal [facility] Comment on above: Performed By: #### U EFRAÍN, CMP, CRP #### [facility] [address] [place] [address] [address] Skylar Chadwick [facility] 2022 SED RATE 67 mm/hr Critically high <=20 [facility] Comment on above: Performed By: #### C MADM, BMP #### [facility] [address] [place] [address] Dr. Skylar Chadwick URIC ACID SERUMon 11-02-2022 Urate [Mass/Vol] 3.3 mg/dL Critically low 3.5-7.2 [facility] Comment on above: Performed By: #### U EFRAÍN, CMP, CRP #### [facility] [address] [address] [address] Skylar Chadwick XR KNEE LT 3Von 11-02-2022 XR KNEE LT 3V EXAM: XR KNEE LT 3V HISTORY: Effusion of joint of left knee COMPARISON: None. TECHNIQUE: 3 views FINDINGS: There is no acute fracture or dislocation. No radiopaque foreign body. The soft tissues are unremarkable. IMPRESSION: No acute fracture or dislocation. Electronically authenticated by: BONNIE RODRIGUES Date: 2022-11-02 14:46 Normal [facility] ECHOCARDIO M/2D COMPLETEon 0 10-28-2022 ECHOCARDIO M/2D COMPLETE Patient: KRISTY DOHERTY Exam Date: 10/28/2022 : 1955 Gender:M Ordering : DR BORIS KIM M.D. Admission #: [id number] Family : Order #: [id number] CLICK HERE TO VIEW EXAM ECHOCARDIOGRAM REPORT [...] Kim M.D. on 10/30/2022 at 19:19 Normal [facility] XR CHEST 2 Von 09-05-2022 XR CHEST [...] by: ASIF COLVIN Date: 2022-09-05 15:49 Normal [facility] ECHOCARDIO M/2D COMPLETEon 0 08-18-2022 ECHOCARDIO M/2D COMPLETE Patient: KRISTY DOHERTY Exam Date: 08/18/2022 : 1955 Gender:M Ordering : MILDRED LOGAN Admission #: [id number] Family : Order #: [id number] CLICK HERE TO VIEW EXAM ECHOCARDIOGRAM REPORT [...] Area (VTI): 2.22 cm2, 2.22 cm2 Deceleration Lyon: 1.61 m/s2 Pressure Half-Time: 686.93 ms Peak [...] M.D. on 08/19/2022 at 17:24 Normal [facility] CARDIAC BONNIE 3-6on 2 CK [Catalytic activity/Vol] 231 U/L Normal 39-308 [facility] Comment on above: Performed By: #### C MREP #### [facility] [address] [place] [address] Dr. Skylar Chadwick CK.MB [Mass/Vol] 1.39 ng/mL Normal <=3.60 [facility] Comment on above: Performed By: #### C MREP #### [facility] [address] [place] [address] Dr. Skylar Chadwick HSTROP 41.4 pg/mL Normal 4.0-76.1 [facility] Comment on above: Result Comment: CUT- OFF POINTS HAVE BEEN ESTABLISHED BASED ON THE FOURTH UNIVERSAL DEFINITIONS OF MYOCARDIAL INFARCTION. THE UPPER REFERENCE LIMIT (URL) OF TROPONIN, DEFINED THE 99TH PERCENTILE OF cTnI DISTRIBUTION IN A REFERENCE POPULATION, HAS BEEN CONFIRMED THE DECISION THRESHOLD FOR PA DIAGNOSIS. Performed By: #### C MREP #### [facility] [address] [place] [address] Dr. Skylar Chadwick CK [Catalytic activity/Vol] 214 U/L Normal 39-308 [facility] Comment on above: Performed By: #### C MREP #### [facility] [address] [place] [address] Dr. Skylar Chadwick CK.MB [Mass/Vol] 1.37 ng/mL Normal <=3.60 [facility] Comment on above: Performed By: #### C MREP #### [facility] [address] [place] [address] Dr. Skylar Chadwick HSTROP 37.0 pg/mL Normal 4.0-76.1 [facility] Comment on above: Result Comment: CUT- OFF POINTS HAVE BEEN ESTABLISHED BASED ON THE FOURTH UNIVERSAL DEFINITIONS OF MYOCARDIAL INFARCTION. THE UPPER REFERENCE LIMIT (URL) OF TROPONIN, DEFINED THE 99TH PERCENTILE OF cTnI DISTRIBUTION IN A REFERENCE POPULATION, HAS BEEN CONFIRMED THE DECISION THRESHOLD FOR PA DIAGNOSIS. Performed By: #### C MREP #### [facility] [address] [place] [address] Dr. Skylar Chadwick CBC AUTO DIFFon 07-02-2022 BASO # 0.1 103/ul Normal 0.0-0.1 [facility] Comment on above: Performed By: #### C MADM, BMP #### [facility] [address] [place] [address] Dr. Skylar Chadwick Basophils/100 WBC (Bld) 1.3 % Normal 0.2-2.0 [facility] Comment on above: Performed By: #### C MADM, BMP #### [facility] [address] [place] [address] Dr. Skylar Chadwick EO # 0.6 103/ul Normal 0.0-0.7 [facility] Comment on above: Performed By: #### C MADM, BMP #### [facility] [address] [place] [address] Dr. Skylar Chadwick Eosinophils/100 WBC (Bld) 7.1 % Critically high 0.9-7.0 [facility] Comment on above: Performed By: #### C MADM, BMP #### [facility] [address] [place] [address] Dr. Skylar Chadwick Erythrocyte distribution width (RBC) [Ratio] 13.0 % Normal 11.0-15.0 [facility] Comment on above: Performed By: #### C MADM, BMP #### [facility] [address] [place] [address] Dr. Skylar Chadwick Hematocrit (Bld) [Volume fraction] 37.2 % Critically low 42.0-54.0 [facility] Comment on above: Performed By: #### C MADM, BMP #### [facility] [address] [place] [address] Dr. Skylar Chadwick Hemoglobin (Bld) [Mass/Vol] 13.2 g/dL Critically low 14.0-18.0 [facility] Comment on above: Performed By: #### C MADM, BMP #### [facility] [address] [place] [address] Dr. Skylar Chadwick IG # 0.02 10e3/ul Normal 0.00-0.03 [facility] Comment on above: Performed By: #### C MADM, BMP #### [facility] [address] [place] [address] Dr. Skylra Chadwick IG % 0.3 % Normal 0.0-0.5 [facility] Comment on above: Performed By: #### C MADM, BMP #### [facility] [address] [place] [address] Dr. Skylar Chadwick LYMPH # 2.2 103/ul Normal 1.2-3.8 [facility] Comment on above: Performed By: #### C CARLOS ENRIQUEM, BMP #### [facility] [address] [place] [address] Dr. Skylar Chadwick Lymphocytes/100 WBC (Bld) 27.4 % Normal 20.5-60.0 [facility] Comment on above: Performed By: #### C CARLOS ENRIQUEM, BMP #### [facility] [address] [place] [address] Dr. Skylar Chadwick MANUAL DIFF REQ NO Normal [facility] Comment on above: Performed By: #### C CARLOS ENRIQUEM, BMP #### [facility] [address] [place] [address] Dr. Skylar Chadwick MCH (RBC) [Entitic mass] 32.4 pg Normal 25.9-34.0 [facility] Comment on above: Performed By: #### C AILYN, BMP #### [facility] [address] [place] [address] Dr. Skylar Chadwick MCHC (RBC) [Mass/Vol] 35.5 g/dL Critically high 29.9-35.2 [facility] Comment on above: Performed By: #### C AILYN, BMP #### [facility] [address] [place] [address] Dr. Skylar Chadwick MCV (RBC) [Entitic vol] 91.2 fL Normal 80.0-94.0 [facility] Comment on above: Performed By: #### C AILYN, BMP #### [facility] [address] [place] [address] Dr. Skylar Chadwick MONO # 1.1 103/ul Critically high 0.3-0.8 [facility] Comment on above: Performed By: #### C CARLOS ENRIQUEM, BMP #### [facility] [address] [place] [address] Dr. Skylar Chadwick Monocytes/100 WBC (Bld) 14.1 % Critically high 1.7-12.0 [facility] Comment on above: Performed By: #### C CARLOS ENRIQUEM, BMP #### [facility] [address] [place] [address] Dr. Skylar Chadwick NEUT # 4.0 103/ul Normal 1.4-6.5 [facility] Comment on above: Performed By: #### C AILYN, BMP #### [facility] [address] [place] [address] Dr. Skylar Chadwick Neutrophils/100 WBC (Bld) 49.8 % Normal 43.0-75.0 [facility] Comment on above: Performed By: #### C AILYN, BMP #### [facility] [address] [place] [address] Dr. Skylar Chadwick Platelet mean volume (Bld) [Entitic vol] 10.5 fL Normal 9.5-13.5 [facility] Comment on above: Performed By: #### C AILYN, BMP #### [facility] [address] [place] [address] Dr. Skylar Chadwick PLT 159 103/ul Normal 150-450 [facility] Comment on above: Performed By: #### Ina ROBERTSON, BMP #### [facility] [address] [place] [address] Dr. Skylar Chadwick RBC 4.08 106/ul Critically low 4.70-6.10 [facility] Comment on above: Performed By: #### C AILYN, BMP #### [facility] [address] [place] [address] Dr. Skylar Chadwick WBC 8.0 103/ul Normal 4.0-11.0 [facility] Comment on above: Performed By: #### Ina ROBERTSON, BMP #### [facility] [address] [place] [address] Dr. Skylar Chadwick [facility] SARS-CoV-2 (COVID-19) RNA DANDY+probe Ql (Unsp spec) Not detected Normal NOT DETECTED [facility] Comment on above: Result Comment: When [...] for this test is supported by the [place] of Health and Human Service's declaration that [...] longer be used). Performed By: #### C [facility] #### [facility] [address] [place] [address] Dr. Skylar Chadwick ECHOCARDIO M/2D COMPLETEon 1 09-02-2021 ECHOCARDIO M/2D COMPLETE Patient: KRISTY DOHERTY Exam Date: 07/02/2022 : 1955 Gender:M Ordering : EDDIE SISTER Admission #: [id number] Family : DR RUDY KING . Order #: [id number] CLICK HERE TO VIEW EXAM ECHOCARDIOGRAM REPORT [...] Mills M.D. on 07/02/2022 at 14:11 Normal [facility] PROF CHEM 8 (BAS METB)on Anion gap [Moles/Vol] 8.4 mmol/L Normal [facility] Comment on above: Performed By: #### B MP #### [facility] [address] [address] [address] Skylar Chadwick Calcium [Mass/Vol] 8.3 mg/dL Critically low 8.5-10.1 [facility] Comment on above: Performed By: #### B MP #### [facility] [address] [address] [address] Skylar Chadwick Chloride [Moles/Vol] 97 mmol/L Critically low 98-107 [facility] Comment on above: Performed By: #### B MP #### [facility] [address] [address] [address] Skylar Chadwick CO2 [Moles/Vol] 32.9 mmol/L Critically high 21.0-32.0 [facility] Comment on above: Performed By: #### B MP #### [facility] [address] [address] [address] Skylar Chadwick Creatinine [Mass/Vol] 1.08 mg/dL Normal 0.70-1.30 [facility] Comment on above: Performed By: #### B MP #### [facility] [address] [address] [address] Skylar Chadwick EGFR-AF TAJIK >60 Normal >=60 [facility] Comment on above: Performed By: #### B MP #### [facility] [address] [address] [address] Skylar Chadwick EGFR-NON AF TAJIK >60 Normal >=60 [facility] Comment on above: Performed By: #### B MP #### [facility] [address] [address] [address] Skylar Chadwick Glucose [Mass/Vol] 114 mg/dL Critically high 74-106 [facility] Comment on above: Performed By: #### B MP #### [facility] [address] [address] [address] Skylar Chadwick Potassium [Moles/Vol] 3.3 mmol/L Critically low 3.5-5.1 [facility] Comment on above: Performed By: #### B MP #### [facility] [address] [place] [address] Dr. Skylar Chadwick Sodium [Moles/Vol] 135 mmol/L Critically low 136-145 Th [facility] Comment on above: Performed By: #### B MP #### [facility] [address] [place] [address] Dr. Skylar Chadwick Urea nitrogen [Mass/Vol] 13.0 mg/dL Normal 7.0-18.0 [facility] Comment on above: Performed By: #### B MP #### [facility] [address] [address] [address] Skylar Chadwick Urea nitrogen/Creatinine [Mass ratio] 12.0 mg/mg Normal [facility] Comment on above: Performed By: #### B MP #### [facility] [address] [address] [address] Skylar Chadwick Anion gap [Moles/Vol] 8.6 mmol/L Normal [facility] Comment on above: Performed By: #### C AILYN, BMP #### [facility] [address] [address] [address] Skylar Chadwick Calcium [Mass/Vol] 8.6 mg/dL Normal 8.5-10.1 [facility] Comment on above: Performed By: #### C AILYN, BMP #### [facility] [address] [address] [address] Skylar Chadwick Chloride [Moles/Vol] 96 mmol/L Critically low 98-107 [facility] Comment on above: Performed By: #### C AILYN, BMP #### [facility] [address] [address] [address] Skylar Chadwick CO2 [Moles/Vol] 34.2 mmol/L Critically high 21.0-32.0 [facility] Comment on above: Performed By: #### C AILYN, BMP #### [facility] [address] [address] [address] Skylar Chadwick Creatinine [Mass/Vol] 1.05 mg/dL Normal 0.70-1.30 [facility] Comment on above: Performed By: #### C AILYN, BMP #### [facility] [address] [address] [address] Skylar Chadwick EGFR-AF TAJIK >60 Normal >=60 [facility] Comment on above: Performed By: #### C AILYN, BMP #### [facility] [address] [address] [address] Skylar Chadwick EGFR-NON AF TAJIK >60 Normal >=60 [facility] Comment on above: Performed By: #### C AILYN, BMP #### [facility] [address] [address] [address] Skylar Chadwick Glucose [Mass/Vol] 113 mg/dL Critically high 74-106 [facility] Comment on above: Performed By: #### C AILYN, BMP #### [facility] [address] [address] [address] Skylar Chadwick Potassium [Moles/Vol] 2.8 mmol/L Critically low 3.5-5.1 [facility] Comment on above: Performed By: #### C AILYN, BMP #### [facility] [address] [address] [address] Skylar Chadwick Sodium [Moles/Vol] 136 mmol/L Normal 136-145 [facility] Comment on above: Performed By: #### C AILYN, BMP #### [facility] [address] [address] [address] Skylar Chadwick Urea nitrogen [Mass/Vol] 10.0 mg/dL Normal 7.0-18.0 [facility] Comment on above: Performed By: #### C AILYN, BMP #### [facility] [id number] Skylar Chadwick Urea nitrogen/Creatinine [Mass ratio] 9.5 mg/mg Normal [facility] Comment on above: Performed By: #### C AILYN, BMP #### [facility] [id number] Skylar Chadwick CAROTID ART BILon 12-15-2 022 [place] CAROTID [...] ASIF JOHN Date: 2022-07-02 11:23 Normal [facility] CARDIAC BONNIE ADMITon 022 CK [Catalytic activity/Vol] 201 U/L Normal 39-308 [facility] Comment on above: Performed By: #### C DAMIEN ROBERTSON #### [facility] [address] [place] [address] Dr. Skylar Chadwick CK.MB [Mass/Vol] 1.31 ng/mL Normal <=3.60 [facility] Comment on above: Performed By: #### DAMIEN MILLS #### [facility] [address] [address] [address] Skylar Chadwick HSTROP 34.8 pg/mL Normal 4.0-76.1 [facility] Comment on above: Result Comment: CUT- OFF POINTS HAVE BEEN ESTABLISHED BASED ON THE FOURTH UNIVERSAL DEFINITIONS OF MYOCARDIAL INFARCTION. THE UPPER REFERENCE LIMIT (URL) OF TROPONIN, DEFINED THE 99TH PERCENTILE OF cTnI DISTRIBUTION IN A REFERENCE POPULATION, HAS BEEN CONFIRMED THE DECISION THRESHOLD FOR PA DIAGNOSIS. Performed By: #### C AILYN, BMP #### [facility] [address] [place] [address] Dr. Skylar Chadwick NHAN 336 ng/mL Critically high 16-96 [facility] Comment on above: Performed By: #### C AILYN, BMP #### [facility] [address] [place] [address] Dr. Skylar Chadwick CBC AUTO DIFFon 07-01-2022 BASO # 0.1 103/ul Normal 0.0-0.1 [facility] Comment on above: Performed By: #### C BC #### [facility] [address] [place] [address] Dr. Skylar Chadwick Basophils/100 WBC (Bld) 1.2 % Normal 0.2-2.0 [facility] Comment on above: Performed By: #### C BC #### [facility] [address] [place] [address] Dr. Skylar Chadwick EO # 0.5 103/ul Normal 0.0-0.7 [facility] Comment on above: Performed By: #### C BC #### [facility] [address] [place] [address] Dr. Skylar Chadwick Eosinophils/100 WBC (Bld) 6.3 % Normal 0.9-7.0 [facility] Comment on above: Performed By: #### C BC #### [facility] [address] [place] [address] Dr. Skylar Chadwick Erythrocyte distribution width (RBC) [Ratio] 12.9 % Normal 11.0-15.0 [facility] Comment on above: Performed By: #### C BC #### [facility] [address] [place] [address] Dr. Skylar Chadwick Hematocrit (Bld) [Volume fraction] 38.0 % Critically low 42.0-54.0 [facility] Comment on above: Performed By: #### C BC #### [facility] [address] [place] [address] Dr. kSylar Chadwick Hemoglobin (Bld) [Mass/Vol] 13.5 g/dL Critically low 14.0-18.0 [facility] Comment on above: Performed By: #### C BC #### [facility] [address] [place] [address] Dr. Skylar Chadwick IG # 0.02 10e3/ul Normal 0.00-0.03 [facility] Comment on above: Performed By: #### C BC #### [facility] [address] [place] [address] Dr. Skylar Chadwick IG % 0.2 % Normal 0.0-0.5 [facility] Comment on above: Performed By: #### C BC #### [facility] [address] [place] [address] Dr. Skylar Chadwick LYMPH # 2.6 103/ul Normal 1.2-3.8 [facility] Comment on above: Performed By: #### C BC #### [facility] [address] [place] [address] Dr. Skylar Chadwick Lymphocytes/100 WBC (Bld) 30.5 % Normal 20.5-60.0 [facility] Comment on above: Performed By: #### C BC #### [facility] [address] [place] [address] Dr. Skylar Chadwick MANUAL DIFF REQ NO Normal [facility] Comment on above: Performed By: #### C BC #### [facility] [address] [place] [address] Dr. Skylar Chadwick MCH (RBC) [Entitic mass] 32.2 pg Normal 25.9-34.0 [facility] Comment on above: Performed By: #### C BC #### [facility] [address] [place] [address] Dr. Skylar Chadwick MCHC (RBC) [Mass/Vol] 35.5 g/dL Critically high 29.9-35.2 [facility] Comment on above: Performed By: #### C BC #### [facility] [address] [address] [address] Skylar Chadwick MCV (RBC) [Entitic vol] 90.7 fL Normal 80.0-94.0 [facility] Comment on above: Performed By: #### C BC #### [facility] [address] [address] [address] Skylar Chadwick MONO # 1.2 103/ul Critically high 0.3-0.8 [facility] Comment on above: Performed By: #### C BC #### [facility] [address] [place] [address] Dr. Skylar Chadwick Monocytes/100 WBC (Bld) 14.3 % Critically high 1.7-12.0 [facility] Comment on above: Performed By: #### C BC #### [facility] [address] [place] [address] Dr. Skylar Chadwick NEUT # 4.0 103/ul Normal 1.4-6.5 [facility] Comment on above: Performed By: #### C BC #### [facility] [address] [place] [address] Dr. Skylar Chadwick Neutrophils/100 WBC (Bld) 47.5 % Normal 43.0-75.0 [facility] Comment on above: Performed By: #### C BC #### [facility] [address] [place] [address] Dr. Skylar Chadwick Platelet mean volume (Bld) [Entitic vol] 10.4 fL Normal 9.5-13.5 [facility] Comment on above: Performed By: #### C BC #### [facility] [address] [place] [address] Dr. Skylar Chadwick PLT 175 103/ul Normal 150-450 [facility] Comment on above: Performed By: #### C BC #### [facility] [address] [place] [address] Dr. Skylar Chadwick RBC 4.19 106/ul Critically low 4.70-6.10 [facility] Comment on above: Performed By: #### C BC #### [facility] [address] [place], [place] [address] Dr. Skylar Chadwick WBC 8.4 103/ul Normal 4.0-11.0 [facility] Comment on above: Performed By: #### C BC #### [facility] [address] [place], [place] [address] CSPINE WO CONon [...] BRIAN BRADSHAW Date: 2022-07-01 21:26 Normal [facility] CT HEAD WO CONon 07-01-2022 CT [...] of the sinuses are not in the [id number]. The middle ears are aerated the mastoid [...] ADIEL KERN Date: 2022-07-01 20:44 Normal [facility] D-DIMERon 07-01-2022 D-DIMER 0.35 mg/L FEU Normal <=0.59 [facility] Comment on above: Performed By: #### C AILYN, BMP #### [facility] [address] [place] [address] Dr. Skylar Chadwick D-DIMER COMMENTS SEE BELOW Normal [facility] Comment on [...] Performed By: #### C AILYN, BMP #### [facility] [address] [place] [address] Dr. Skylar Chadwick PROF CHEM 8 (BAS METB)on Anion gap [Moles/Vol] 13.5 mmol/L Normal [facility] Comment on above: Performed By: #### C AILYN, BMP #### [facility] [address] [place] [address] Dr. Skylar Chadwick Calcium [Mass/Vol] 8.8 mg/dL Normal 8.5-10.1 [facility] Comment on above: Performed By: #### C MADM, BMP #### [facility] [address] [address] [address] Skylar Chadwick Chloride [Moles/Vol] 94 mmol/L Critically low 98-107 [facility] Comment on above: Performed By: #### C MADM, BMP #### [facility] [address] [address] [address] Skylar Chadwick CO2 [Moles/Vol] 29.0 mmol/L Normal 21.0-32.0 [facility] Comment on above: Performed By: #### C MADM, BMP #### [facility] [address] [address] [address] Skylar Chadwick Creatinine [Mass/Vol] 1.03 mg/dL Normal 0.70-1.30 [facility] Comment on above: Performed By: #### C MADM, BMP #### [facility] [address] [address] [address] Skylar Chadwick EGFR-AF TAJIK >60 Normal >=60 [facility] Comment on above: Performed By: #### C MADM, BMP #### [facility] [address] [address] [address] Skylar Chadwick EGFR-NON AF TAJIK >60 Normal >=60 [facility] Comment on above: Performed By: #### C MADM, BMP #### [facility] [address] [address] [address] Skylar Chadwick Glucose [Mass/Vol] 111 mg/dL Critically high 74-106 [facility] Comment on above: Performed By: #### C MADM, BMP #### [facility] [address] [address] [address] Skylar Chadwick Potassium [Moles/Vol] 2.5 mmol/L Critically low 3.5-5.1 [facility] Comment on above: Performed By: #### C MADM, BMP #### [facility] [address] [address] [address] Skylar Chadwick Sodium [Moles/Vol] 134 mmol/L Critically low 136-145 [facility] [place] [facility] Comment on above: Performed By: #### C AILYN, BMP #### [facility] [address] [place], [place] [address] Dr. Skylar Chadwick Urea nitrogen [Mass/Vol] 12.0 mg/dL Normal 7.0-18.0 [facility] Comment on above: Performed By: #### C AILYN, BMP #### [facility] [address] [place], [place] [address] Dr. Skylar Chadwick Urea nitrogen/Creatinine [Mass ratio] 11.7 mg/mg Normal [facility] Comment on above: Performed By: #### C AILYN, BMP #### [facility] [address] [place], [place] [address] Dr. Skylar Chadwick XR CHEST 1 Von [...] acute cardiopulmonary disease. Electronically authenticated by: SOBEIDA MONCAAD Date: 2022-07-01 20:44 Normal [facility] Outside Colonoscopyon 2021 Outside Colonoscopy [id number] D:127 Normal [facility] RAD - MISCon 01-29-2022 RAD - MISC [id number] D:127 Normal [facility] XR COLON AIR CONTR.on 2021 XR COLON AIR CONTR. EXAMINATION: XR COLO N AIR CONTR. HISTORY: Colonoscopy abnormal COMPARISON: No relevant comparison available. FLUOROSCOPY TIME: Fluoro time measures 3 minutes 40 seconds and 22 images were obtained. TECHNIQUE: An air contrast barium enema examination was performed in the usual manner. No wire worker abdominal radiograph was performed. Standard level fluoroscopic mode of operation utilized. FINDINGS: COLON: No focal obstruction, mass or stricture. Mild diverticulosis distal descending and proximal sigmoid colon. OTHER: Negative. IMPRESSION: Mild diverticulosis, otherwise normal exam Electronically authenticated by: ASIF JOHN Date: 2022-01-28 14:34 Normal [facility] Pre-Certification Formon Pre-Certification Form [id number] CD:127 Normal [facility] Consent for Procedure/Surger yon 01-08-2022 Consent for Procedure/Surgery [id number] D:127 Normal [facility] Ambulatory Visit Summaryon 0 01-07-2022 Ambulatory [...] Seasonal allergic rhinitis Vitamin D deficiency Normal [facility] Physician Referralon 022 Physician Referral [id number] D:127 Normal [facility] Encounters Encounter Date Encounter Type Care Provider Facility Start: 12-01-2024 End: 12-01-2024 ambulatory [facility] Start: 11-30-2024 ambulatory [facility] Start: 11-13-2024 ambulatory [facility] Start: 11-07-2024 End: 11-07-2024 ambulatory [facility] Start: 10-24-2024 ambulatory [facility] Start: 09-21-2024 ambulatory [facility] Start: 08-21-2024 ambulatory [facility] Start: 08-16-2024 End: 08-16-2024 Clinisync Result Encounter Generic External Data Provider [facility] Unsolicited Start: 08-16-2024 End: 08-16-2024 Clinisync Result Encounter Generic External Data Provider [facility] Unsolicited Start: 08-11-2024 ambulatory [facility] Start: 07-31-2024 ambulatory [facility] Start: 07-03-2024 End: 07-03-2024 ambulatory [facility] Start: 06-20-2024 ambulatory [facility] Start: 06-12-2024 ambulatory [facility] Start: 06-02-2024 ambulatory [facility] Start: 06-02-2024 Encounter for preprocedural cardiovascular examination [facility] Start: 05-31-2024 ambulatory [facility] Start: 05-03-2024 ambulatory [facility] Start: 04-25-2024 End: 04-25-2024 ambulatory [facility] Start: 04-19-2024 ambulatory [facility] Start: 03-23-2024 ambulatory [facility] Start: 02-21-2024 ambulatory [facility] Start: 02-16-2024 ambulatory [facility] Start: 01-17-2024 End: 01-17-2024 ambulatory MARIAH H NAZARIO Not Available Start: 01-12-2024 ambulatory [facility] Start: 01-06-2024 End: 01-06-2024 ambulatory SHANIA [facility] Start: 01-05-2024 ambulatory [facility] Start: 07-22-2023 End: 07-22-2023 ambulatory RUDY KING Not Available Start: 12-03-2022 End: 12-03-2022 ambulatory Kristy Beatty Facility:[facility] Start: 11-10-[address] RUDY KING Facil [...] Date Procedure Procedure Detail Performing Clinician Start: 08-16-2024 ALL BASIC METABOLIC PANEL Generic External Data Provider Start: 01-25-2008 Colonoscopy Generic Pr ovider Plan of Treatment Date Care Activity Detail Author Start: 03-19-2024 Influenza vaccination Influenza Vacc ine (#1) [facility] Start: 01-24-2018 Screening for malign ant neoplasm of colon [facility] Start: 09-19-1961 Pneumococcal Vaccine : 65+ Years (1 of 2 - PCV) Pneumococcal Vaccine: 65+ Years (1 of 2 - PCV) [facility] Start: 1955 Medicare Annual Well ness (AWV) Medicare Annual Wellness (AWV) [facility] Start: 1955 Screening for malign ant neoplasm of colon [facility] Immunizations Immunization Date Immunization Notes Care Provider Fa cility 07-01-2022 diphtheria, tetanus toxoids and pertussis vaccine Generic Provider [facility] 10-11-2020 Pfizer Purple Cap SA RS-CoV-2 Vaccination Generic Provider [facility] 2020 Pfizer Purple Cap SA RS-CoV-2 Vaccination Generic Provider [facility] 07-29-2012 influenza virus vacc ine, unspecified formulation Generic Provider [facility] Healthcare Payers Date Payer Category Payer Self-pay 2022 Medicare (Managed Care) [facility] [id number] 1959 Medicare [id number] 1959 Unknown [id number] 1955 Unknown [id number] .593 1955 Unknown [id number] [id number] .593 1955 Unknown [id number] 2.16.840.1.799937.3.579.2 .593 1955 Unknown [id number] 2.16.840.1.106316.3.579.2 .593 1955 Unknown [id number] 2.16.840.1.451147.3.579.2 .593 1955 Unknown [id number] 2.16.840.1.518969.3.579.2 .593 1955 Unknown [id number] 2.16.840.1.840777.3.579.2 .593 1955 Unknown [id number] 2.16.840.1.218157.3.579.2 .593 1955 Unknown [id number] 2.16.840.1.529509.3.579.2 .593 1955 Unknown [id number] 2.16.840.1.655258.3.579.2 .593 1955 Unknown [id number] 2.16.840.1.680946.3.579.2 .1259 1955 Unknown [id number] 2.16.840.1.084574.3.579.2 .1259 Unknown [id number] [id number] .531 Social History Date Type Detail Facility Start: 03-02-2023 Tobacco smoking stat [facility] Never smoked tobacco [facility] Start: 03-02-2023 Tobacco use and exposure User of smo keless tobacco [facility] History of tobacco use Chews Tobacco [facility] Start: 01-17-2024 Alcoholic beverage intake Curr ent drinker of alcohol (finding) [facility] Start: 07-22-2023 End: 01-17-2024 History of Social function [facility] Start: 07-22-2023 End: 01-17-2024 Tobacco use panel [facility] Start: 03-08-2023 Alcohol Comment caffeine intak e: 1-2 cups per day of coffee/tea [facility] Start: 1955 Sex assigned at Not on file N [facility] Clinical Notes 01-07-2022 to 12-01-2024 Note Date & Type Note Facility 12-01-2024 Note Patient: Kristy stewart Procedure Information Date/Time: 12/01/24 1200 Procedure: TRANSESOPHAGEAL ECHO (MASON) Location: [facility] Clinical information reviewed: Allergies Meds Physical Exam Airway Mallampati: II TM distance: >3 FB Neck ROM: full Cardiovascular Rhythm: regular Rate: normal Dental Pulmonary Breath sounds clear to auscultation Abdominal Anesthesia Plan ASA 3 other (Conscious sedation.) Anesthetic plan and risks discussed with patient. Use of blood products discussed with patient who consented to blood products. Additional Equipment Requests [facility] 11-13-2024 Note [place] [facility] Subjective Kristy Doherty is a 69 y.o. year old male patient being seen for easy bleeding on Eliquis. says she stopped his Entresto 5 days ago because they both thought that was his blood thinner. wants to know why his bleeding improved after stopping Entresto. Patient denies chest pain, SOB, and palpitations. Patient Active Problem List Diagnosis New onset of congestive heart failure (CMS/HCC) Asthma History of malignant neoplasm of prostate Hypomagnesemia Hypertension Syncope and collapse Coronary artery disease involving iqugmiut coronary artery of iqugmiut heart without angina pectoris Chronic systolic heart [...] seen in follow up. He is a 69-year-old man with systolic heart failure. He has prior history of hypertension. In June 2022 he was admitted to the [facility] with syncope and echocardiogram showed new onset systolic heart failure with ejection fraction of 25%. Carotid ultrasound showed no significant stenosis. CT head was negative for intracranial pathology. He ended up being transferred to [facility] and underwent cardiac catheterization that [...] rhythm strips. He then underwent a dual-chamber [employer] ICD placement on 09/04/2022. He was evaluated in cardiology clinic on 05/11/[address] Bobo Raymond and due to device discovered atrial fibrillation he was started on Eliquis for anticoagulation. He is seen in follow-up. At last visit I increased Entresto dosage for further optimization of GDMT. Follow-up BMP in July 2024 showed stable renal function. Today he reports that he has been having significant issues with upper extremity ecchymosis and bleeding. He had large ecchymoses in both right and left arms without any trauma. He says that he would form and small bullae that we will start bleeding and requires a lot of pressure to stop. Otherwise he has been doing well without any significant chest pain, shortness of breath or palpitations. Review of Systems Hematologic/Lymphatic: Bruises/bleeds easily. Musculoskeletal: Positive for arthritis, back pain and myalgias. All other systems reviewed and are negative. Objective Visit Vitals BP 148/88 (BP Location: Left arm, Patient Position: Sitting) Pulse 77 Ht 1.727 m (5' 8 ) Wt 88 kg (194 lb) SpO2 96% BMI 29.50 kg/m??? Smoking Status Former BSA 2.05 m??? Physical Exam Constitutional: Appearance: He is [...] Skin: General: Skin is warm and dry. Comments: Large ecchymotic lesions seen in the left forearm and underneath the right elbow. In the center there are areas of crust formation at the site of bleeding vessel. Neurological: General: No focal deficit present. Mental Status: He is alert and oriented to person, place, and time. Psychiatric: Mood and Affect: Mood normal. Behavior: Behavior is cooperative. Judgment: Judgment normal. Allergies Foreign (more content not included)... [facility] 07-03-2024 Note [place] [facility] Subjective Kristy Doherty is a 68 [...] Syncope and collapse Coronary artery disease involving iqugmiut coronary artery of iqugmiut heart without angina pectoris Chronic systolic heart [...] June 2022 he was admitted to the [facility] with syncope and echocardiogram showed new onset systolic heart failure with ejection fraction of 25%. Carotid ultrasound showed no significant stenosis. CT head was negative for intracranial pathology. He ended up being transferred to [facility] and underwent cardiac catheterization that [...] rhythm strips. He then underwent a dual-chamber [employer] ICD placement on 09/04/2022. He was [...] 90 tablet, R (more content not included)... [facility] 01-06-2024 Note Script for liver fun ction and lipid levels given to pt Continue statin [facility] 01-06-2024 Note Congestive heart vignesh davila remains stable [facility] 01-06-2024 Note Patient here for 6 m [...] All other systems reviewed and are negative. [facility] 01-06-2024 Note [facility] CARDIOLOGY PROGR ESS NOTE [...] June 2022 he was admitted to the [facility] with syncope and echocardiogram showed new onset systolic heart failure with ejection fraction of 25%. Carotid ultrasound showed no significant stenosis. CT head was negative for intracranial pathology. He ended up being transferred to [facility] and underwent carotid catheterization that [...] rhythm strips. He then underwent a dual-chamber [employer] ICD placement on 09/04/2022. today he [...] CV Testing: rev (more content not included)... [facility] 01-06-2024 Note Coronary artery dise ase is stable Continue GDMT- lipitor, toprol continue risk factor modifications- heart healthy diet, regular exercise as tolerated and continue all medications. [facility] 01-06-2024 Note [facility] II- currently E F improved from 25-30% to 40% Remains euvolemic and stable Continue GDMT- lipitor, farxiga, toprol, entresto and aldactone Diuretic therapy- continue farxiga Monitor daily weights, I&O, fluid restriction 1.5-2L/day, renal function and electrolytes- Currently stable - improved EF- continue all medications [facility] 08-18-2022 Note PROCEDURE: XR FOOT L T [...] authenticated by: BRIAN BRADSHAW Date: 2022-08-18 15:43 [facility] 08-04-2022 Note PROCEDURE: XR FOOT L T MIN 3 VIEWS COMPARISON: None. HISTORY: Pain in left foot FINDINGS: BONES:No acute fracture or dislocation. Mild enthesopathic spurring of the calcaneus at the Achilles and plantar insertions. Mild degenerative changes of the midfoot SOFT TISSUES:Negative. No visible soft tissue swelling. EFFUSION:None visible. OTHER: Negative. IMPRESSION: No acute abnormality Electronically authenticated by: ASIF ALVARO Date: 2022-08-04 08:48 [facility] 01-28-2022 Note OPERATIVE NOTE OPERATION DATE: 01/28/2022 [...] in 10 years. CC: Rudy King M.D. [facility] Signed and Approved by: DR RAVI GERONIMO . 01/30/2022 12:35:00 [facility] 01-07-2022 Note Chief Complaint consultation for screening [...] Brother. Primary malignant neoplasm of prostate: Brother. 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 [employer] [facility]. provides no warranty or guarantee of the accuracy or completeness of information in this document.
--- NOTE | 2024-12-05 09:00 | CA_ITS ---
Patient Name: KRISTY VAZQUEZ MR#: [id number] : 1955 Exam Date: 12/05/2024 Ordering Doctor: DR BORIS WILLIAM M.D. ECHOCARDIOGRAM REPORT PROCEDURE: CA ECHO DOPPLER COMPLETE INDICATIONS: Heart failure with reduced ejection fraction, pace/defib COMPARISON: None. DESCRIPTION: COMPLETE ECHOCARDIOGRAM Real-time transthoracic echocardiography with 2D, M-mode, spectral and color flow Doppler performed. QUALITY: Technical quality was good. LEFT VENTRICLE: Normal chamber size. Normal left ventricular wall thickness. There is global hypokinesis. Systolic function is mildly to moderately reduced. LV EF: Calculated left ventricular ejection fraction is 43%. Mildly reduced left ventricular ejection fraction, (40-45%). DIASTOLIC: Grade I diastolic dysfunction. ATRIAL SEPTUM: Visually appears intact. LEFT ATRIUM: Moderately dilated. RIGHT ATRIUM: Mildly dilated. RIGHT VENTRICLE: Normal chamber size. Normal systolic function. Pacer wire present. TRICUSPID VALVE: Normal mobility and thickness. No stenosis with mild regurgitation. No evidence of pulmonary hypertension. RVSP 31 mmHg MITRAL VALVE: Normal mobility and thickness. No evidence of mitral valve stenosis. There is no mitral annular calcification. Mild mitral regurgitation. AORTIC VALVE: Normal trileaflet appearance. No visible sclerosis. Normal leaflet mobility. No evidence of aortic valve stenosis. Mild aortic regurgitation. AORTIC ROOT: Normal diameter and appearance, measuring 3.6 cm. Ascending aorta is mildly dilated (3.9 cm). PULMONIC VALVE: Normal thickness and mobility. No stenosis. Mild regurgitation. PERICARDIUM: No evidence of pericardial effusion. IVC: Collapses with inspirations. IVC is normal in size. PLEURA: CONCLUSION: 1. The left ventricle is normal in size and exhibits global hypokinesis with mildly to moderately reduced systolic function. Estimated LVEF is 40 to 45%. 2. Normal right ventricular size and systolic function. 3. Mild to moderate biatrial dilatation. 4. Mild mitral, aortic, tricuspid and pulmonic regurgitation. 5. Normal right-sided pressures. Adult Echocardiography Procedure Report Left Ventricle LVEDD (3.7 - 5.6 cm): 5.74 cm LVESD (2.2 - 4.0 cm): 4.65 cm LVIVS thickness (0.6 - 1.2 cm): 0.95 cm LVPW thickness (0.5 - 1.0 cm): 0.99 cm e': 0.06 m/s E - e': 4.73 LVOT Max Gradient: 2.94 mm[Hg] LVOT Area (cm2): 0.86 m/s Peak Velocity (LVOT): 0.86 m/s Mean Velocity (LVOT): 0.61 m/s LVOT Diameter 2.38 cm Left Atrium LA Volume Index (2D A2C): 23.61 ml/m2 Left Atrium Systolic Dimension: 4.17 cm Mitral Valve MV E to A Ratio: 0.39 Mitral Valve A-Wave Peak Velocity: 0.75 m/s Mitral Valve E-Wave Peak Velocity: 0.29 m/s Right Ventricle Aorta AO Root Diam: 3.63 cm Ascending Ao Diam: 3.87 cm Aortic Valve AoV Area (Peak Stanley): 3.07 cm2, 3.07 cm2 AoV Area (VTI): 3.03 cm2, 3.03 cm2 Peak Velocity(Antegrade Flow): 1.24 m/s Peak Gradient(Antegrade Flow): 6.15 mm[Hg] Mean Velocity(Antegrade Flow): 0.89 m/s Mean Gradient(Antegrade Flow): 3.54 mm[Hg] Velocity Time Integral: 28.81 cm Tricuspid Valve Peak Velocity (Regurgitant Flow): 2.65 m/s Pulmonic Valve Mean Gradient: 3.85 mm[Hg] Mean Velocity: 0.88 m/s Peak Velocity: 1.52 m/s, 1.44 m/s Peak Gradient: 8.32 mm[Hg], 9.21 mm[Hg] Right Atrium Right Atrium Systolic Pressure: 41.53 ml, 41.53 ml Dictated by: Boris William M.D. on 12/05/2024 at 15:40 Approved by: Boris William M.D. on 12/05/2024 at 15:44
== END 2024-12-05 08:48 | disposition home or self-care (01) ==
LOC: CARD 08:49
PROVIDERS: PCP Family Medicine; Visit Provider Internal Medicine Interventional Cardiology
DX: I50.22 Chronic systolic (congestive) heart failure (principal)
CPT/HCPCS: 93306

== ENCOUNTER 2025-01-30 13:19 | Outpatient (OUT) | payer MEDICARE, SELFPAY ==
--- OUTSIDE RECORDS SUMMARY | 2025-01-30 13:23 | XMS_ITS | Clinical Summary ---
Author Organization [facility] Address [address] [place] [address] Care Team Providers Care Courier Delivery Driver Name Role Phone Rudy Guerra MD Primary Care Provider [phone] Allergies Active Allergy Reactions Criticality Noted Date Comments Octacosanol 01/17/2024 Other Reaction(s): Unknown Medications sacubitril-valsa rtan (Entresto) 49-51 MG tablet Take 1 tablet by mouth in the morning and 1 tablet in the evening. 02/20/20 23 Active Farxiga 10 MG Take 10 mg by mouth 1 (one) time each day at the same time. Active spironolactone (Aldactone) 25 MG tablet Take 25 mg by mouth in the morning. 08/24/19 23 Active atorvastatin (Lipitor) 40 MG tablet Take 40 mg by mouth 1 (one) time each day at the same time. Active Dupixent 300 MG/2ML injection Inject 300 mg under the skin every 14 (fourteen) days. 10/09/19 23 Active metoprolol succinate XL (Toprol-XL) 50 MG 24 hr tablet Take 50 mg by mouth in the morning. 06/29/20 23 Active Eliquis 5 MG tablet Take 5 mg by mouth in the morning and 5 mg before bedtime. 12/14/19 24 Active Fluticasone-Salm eterol 500-50 MCG/ACT aerosol powderIndication s:Mild persistent asthma without complication (HCC) Inhale 1 puff in the morning and 1 puff before bedtime. 60 each 3 10/18/19 25 026 Active allopurinol (Zyloprim) 300 MG tabletIndication s:Gout, unspecified cause, unspecified chronicity, unspecified site TAKE 1 TABLET BY MOUTH DAILY 270 tablet 11/30/19 25 Active fluticasone (Flonase) 50 MCG/ACT nasal sprayIndications :Mild persistent asthma without complication (HCC) instill 1 spray IN EACH NOSTRIL DAILY 16 g 1 01/03/20 25 Active albuterol HFA 90 mcg/act inhalerIndicatio ns:Mild persistent asthma without complication (HCC) Inhale 2 puffs every 4 (four) hours if needed for wheezing 8.5 g 1 01/17/20 25 Active fluticasone (Flonase) 50 MCG/ACT nasal sprayIndications :Mild persistent asthma without complication (HCC) instill 1 spray IN EACH NOSTRIL DAILY. shake gently, before first use, prime pump and after use clean tip and replace cap 16 g 1 09/04/19 25 025 Discontinued albuterol HFA 90 mcg/act inhalerIndicatio ns:Mild persistent asthma without complication (HCC) INHALE 2 (TWO) PUFFS BY MOUTH EVERY FOUR HOURS NEEDED FOR FOR WHEEZING 8.5 g 1 11/15/19 25 025 Discontinued albuterol HFA 90 mcg/act inhalerIndicatio ns:Mild persistent asthma without complication (HCC) INHALE 2 PUFFS BY MOUTH EVERY 4 HOURS NEEDED FOR WHEEZING 8.5 g 1 01/16/20 25 025 Discontinued(Re order) Active Problems Problem Noted Date Diagnosed Date Paroxysmal atrial fibrillation 07/22/2023 Overview (12/12/2024): Documented on 08/24/2023 by AMINATA ALEXANDER Assessment & Plan (12/12/2024 9:03 PM EDT): In NSR and continue medication. Follow up with cardiology. Bleeding problems on Eliquis and recommend device such as Watchman device to stop anticoagulation. Assessment & Plan (07/22/2023 3:40 PM EST): In NSR and continue medication. Follow up with cardiology. Allergic rhinitis due to pollen 03/02/2023 Assessment & Plan (07/22/2023 3:39 PM EST): Symptoms controlled with medication and continue. Chronic pansinusitis 03/02/2023 Nasal polyp 03/02/2023 ICD (implantable cardioverter-defibrillator) in place 09/15/2022 Overview (03/02/2023): Last Assessment & Plan: No DFT since implantation RTC q 6 months of device interrogation and pt is due for interrogation this coming march Nonischemic cardiomyopathy 09/01/2022 Overview (03/02/2023): Added automatically from request for surgery [id number] Last Assessment & Plan: As above Seasonal allergic rhinitis 08/31/2022 Depressive disorder 08/31/2022 Dyslipidemia 08/31/2022 Overview (03/02/2023): Last Assessment & Plan: Continue statin Prediabetes 08/31/2022 Steatosis of liver 08/31/2022 Vitamin D deficiency 08/31/2022 Chronic HFrEF (heart failure with reduced ejection fraction) 07/06/2022 Overview (03/02/2023): Last Assessment & Plan: NYHC II- currently euvolemic without exacerbation Continue GDMT- ASA, lipitor, toprol, farxiga, aldactone and will increase entresto to 49-51 mg bid Repeat BMP in 1 week to assess renal function and electrolyes Diuretic therapy- farxiga- pt is euvolemic currently Monitor daily weights, I&O, fluid restriction 1.5-2L/day, renal function and electrolytes- Assessment & Plan (12/12/2024 9:02 PM EDT): No edema and continue medication. Follow up with cardiology. Assessment & Plan (07/22/2023 3:39 PM EST): No edema and continue medication. Follow up with cardiology. Coronary artery disease invo lving chitimacha coronary artery of chitimacha heart without angina pectoris 07/06/2022 Overview (03/02/2023): Last Assessment & Plan: Coronary artery disease is stable Continue GDMT- ASA lipitor and toprol- Pt tolerating cardiac rehab well and states he has 1 more week of rehab continue risk factor modifications- heart healthy diet, regular exercise as tolerated and continue all medications. Mild persistent asthma without complication 07/19 Assessment & Plan (12/12/2024 9:02 PM EDT): No SOB and continue advair. Use albuterol PRN. Assessment & Plan (07/22/2023 3:40 PM EST): No SOB and continue advair. Use albuterol PRN. Benign essential hypertension 05/27/2011 Assessment & Plan (12/12/2024 9:02 PM EDT): BP controlled and monitor PRN. Assessment & Plan (07/22/2023 3:39 PM EST): BP controlled and monitor PRN. Hyperlipidemia 07/02/2008 Malignant tumor of prostate 07/02/2008 Resolved Problems Problem Noted Date Diagnosed Date Resolved Date Chronic rhinitis 03/02/2023 03/02/2023 History of malignant neoplasm of prostate 07/03/2022 03/02/2023 Hypertension 07/03/2022 03/02/2023 Overview (03/02/2023): Last Assessment & Plan: Hypertension is well controlled Continue all meds Renal function has been stable Hypomagnesemia 07/03/2022 03/02/2023 New onset of congestive heart failure 07/02/2022 03/02/2023 Overview (03/02/2023): Last Assessment & Plan: -per cath results, will consider adding SGLT2 and MRA if repeat echo in 1 month does not show improved systolic function -EF 25%, discharged with [facility] -pending repeat echo 1 month may consider 3 month echo, from there if EF not >35% he will need an ICD, pending future visit ECG if he has wide complexes he may no BiV ICD - continue [id number], entresto 24-26, will add medications pending echo Syncope and collapse 07/02/2022 023 Overview (03/02/2023): Added automatically from request for surgery [id number] Encounters Date Type Department Care Team Description 01/16/2025 Refill [facility] [address] [place] [address] Rudy Guerra MD Mild persistent asthma without complication (HCC) 01/13/2025 Refill [facility] [address] [place] [address] Rudy Guerra MD Mild persistent asthma without complication (HCC) 01/02/2025 Refill [facility] [address] [place] [address] Rudy Guerra MD Mild persistent asthma without complication (HCC) 12/12/2024 3:00 PM EDT Office Visit [facility] [address] [place] [address] Rudy Guerra MD Benign essential hypertension (Primary Dx); Chronic HFrEF (heart failure with reduced ejection fraction) (HCC); Mild persistent asthma without complication (HCC); Paroxysmal atrial fibrillation (HCC) 12/12/2024 Bamboo flowsheet [facility] [address] [place] [phone] Rudy Guerra MD 12/05/2024 Clinisync Result Encounter [facility] External Department Unsolicited Provider, Generic External Data 11/29/2024 Refill [facility] [address] [place] [address] Rudy Guerra MD Gout, unspecified cause, unspecified chronicity, unspecified site (Primary Dx) 11/13/2024 [facility]ill [facility] [address] [place] [phone] Rudy Guerra MD Mild persistent asthma without complication (HCC) from Last 3 Months Immunizations Immunization Administration Dates Next Due DTP 07/01/2022 Pfizer Purple Cap SARS-CoV-2 Vaccination 021,2020 Family History Medical History Relation Name Comments COPD Father Diabetes Mother Heart disease Mother Stroke Mother Heart disease Sibling Relation Name Status Comments Father Mother Sibling Social History Tobacco Use Types Packs/Day Years Used Date Smoking Tobacco: Never Smokeless Tobacco: Current Chew Tobacco Cessation:Ready to Q uit: Not Asked; Counseling Given: Not Answered Alcohol Use Standard Drinks/Week Comments Yes 6 (1 standard drink = 0.6 oz pure alcohol) caffeine intake: 1-2 cups per day of coffee/tea PHQ-2 Answer Date Recorded Patient Health Questionnaire-2 Score 0 07/22/2023 Sex and Gender Information Value Date Recorded Sex Assigned at Not on file Legal Sex Male 6:42 PM EDT Gender Identity Not on file Sexual Orientation Not on file Last Filed Vital Signs Vital Sign Reading Time Taken Comments Blood Pressure 104/60 12/12/2024 3:08 PM EDT Pulse 94 12/12/2024 3:08 PM EDT Temperature 36.6 C (97.8 F) 12/12/2024 3:08 PM EDT Respiratory Rate 18 12/12/2024 3:08 PM EDT Oxygen Saturation 96% 12/12/2024 3:08 PM EDT Inhaled Oxygen Concentration - - Weight 88 kg (194 lb) 12/12/2024 3:08 PM EDT Height 172.7 cm (5' 8 ) 12/12/2024 3:08 PM EDT Body Mass Index 29.5 12/12/2024 3:08 PM EDT Plan of Treatment Upcoming Encounters Date Type Department Care Team (Late st Contact Info) Description 02/05/2025 11:10 AM EDT Office Visit [facility] [address] [place] [phone] Sandra Solis MD [address] [place] [address] 06/19/2025 10:00 AM EST Office Visit [facility] [address] [place] [phone] Rudy Guerra MD [address] [place] [address] Health Maintenance Due Date Last Done Comments CT Colonography 1955 FIT-DNA 1955 FIT 1955 FOBT 1955 Medicare Annual Wellness (AWV) 1955 Sigmoidoscopy 1955 Pneumococcal Vaccine: 65+ Years (1 of 2 - PCV) 975 Colonoscopy 01/24/2018 01/25/2008 Colorectal Cancer Screening 01/24/2018 Influenza Vaccine (#1) 2025 07/29/2012 Procedures Procedure Name Priority Date/Time Associated Diagnosis Comments CA ECHO DOPPLER COMPLETE 12/05/2024 3:44 PM EDT from Last 3 Months Results * CA ECHO DOPPLER COMPLETE (12/05/2024 3:44 PM EDT) Anatomical Region Laterality Modality Other 12/05/2024 3:44 PM EDT Narrative 12/05/2024 3:45 PM EDT [facility] [place] [id number] Cardiology Report Signed Patient: KRISTY VAZQUEZ MR#: [id number] : 1955 Acct:[id number] Age/Sex: 69 / M ADM Date: 12/05/24 Loc: CARD Attending Dr: BORIS WILLIAM Ordering Physician: BORIS WILLIAM Date of Service: 12/05/24 Procedure(s): CA echo doppler complete Accession Number(s): [id number] cc: BORIS WILLIAM; Rudy Guerra M.D. Patient Name: KRISTY VAZQUEZ MR#: [id number] : 1955 Exam Date: 12/05/2024 Ordering Doctor: DR BORIS WILLIAM M.D. ECHOCARDIOGRAM REPORT PROCEDURE: CA ECHO DOPPLER COMPLETE INDICATIONS: Heart failure with reduced ejection fraction, pace/defib COMPARISON: None. DESCRIPTION: COMPLETE ECHOCARDIOGRAM Real-time transthoracic echocardiography with 2D, M-mode, spectral and color flow Doppler performed. QUALITY: Technical quality was good. LEFT VENTRICLE: Normal chamber size. Normal left ventricular wall thickness. There is global hypokinesis. Systolic function is mildly to moderately reduced. LV EF: Calculated left ventricular ejection fraction is 43%. Mildly reduced left ventricular ejection fraction, (40-45%). DIASTOLIC: Grade I diastolic dysfunction. ATRIAL SEPTUM: Visually appears intact. LEFT ATRIUM: Moderately dilated. RIGHT ATRIUM: Mildly dilated. RIGHT VENTRICLE: Normal chamber size. Normal systolic function. Pacer wire present. TRICUSPID VALVE: Normal mobility and thickness. No stenosis with mild regurgitation. No evidence of pulmonary hypertension. RVSP 31 mmHg MITRAL VALVE: Normal mobility and thickness. No evidence of mitral valve stenosis. There is no mitral annular calcification. Mild mitral regurgitation. AORTIC VALVE: Normal trileaflet appearance. No visible sclerosis. Normal leaflet mobility. No evidence of aortic valve stenosis. Mild aortic regurgitation. AORTIC ROOT: Normal diameter and appearance, measuring 3.6 cm. Ascending aorta is mildly dilated (3.9 cm). PULMONIC VALVE: Normal thickness and mobility. No stenosis. Mild regurgitation. PERICARDIUM: No evidence of pericardial effusion. IVC: Collapses with inspirations. IVC is normal in size. PLEURA: CONCLUSION: 1. The left ventricle is normal in size and exhibits global hypokinesis with mildly to moderately reduced systolic function. Estimated LVEF is 40 to 45%. 2. Normal right ventricular size and systolic function. 3. Mild to moderate biatrial dilatation. 4. Mild mitral, aortic, tricuspid and pulmonic regurgitation. 5. Normal right-sided pressures. Adult Echocardiography Procedure Report Left Ventricle LVEDD (3.7 - 5.6 cm): 5.74 cm LVESD (2.2 - 4.0 cm): 4.65 cm LVIVS thickness (0.6 - 1.2 cm): 0.95 cm LVPW thickness (0.5 - 1.0 cm): 0.99 cm e': 0.06 m/s E - e': 4.73 LVOT Max Gradient: 2.94 mm[Hg] LVOT Area (cm2): 0.86 m/s Peak Velocity (LVOT): 0.86 m/s Mean Velocity (LVOT): 0.61 m/s LVOT Diameter 2.38 cm Left Atrium LA Volume Index (2D A2C): 23.61 ml/m2 Left Atrium Systolic Dimension: 4.17 cm Mitral Valve MV E to A Ratio: 0.39 Mitral Valve A-Wave Peak Velocity: 0.75 m/s Mitral Valve E-Wave Peak Velocity: 0.29 m/s Right Ventricle Aorta AO Root Diam: 3.63 cm Ascending Ao Diam: 3.87 cm Aortic Valve AoV Area (Peak Stanley): 3.07 cm2, 3.07 cm2 AoV Area (VTI): 3.03 cm2, 3.03 cm2 Peak Velocity(Antegrade Flow): 1.24 m/s Peak Gradient(Antegrade Flow): 6.15 mm[Hg] Mean Velocity(Antegrade Flow): 0.89 m/s Mean Gradient(Antegrade Flow): 3.54 mm[Hg] Velocity Time Integral: 28.81 cm Tricuspid Valve Peak Velocity (Regurgitant Flow): 2.65 m/s Pulmonic Valve Mean Gradient: 3.85 mm[Hg] Mean Velocity: 0.88 m/s Peak Velocity: 1.52 m/s, 1.44 m/s Peak Gradient: 8.32 mm[Hg], 9.21 mm[Hg] Right Atrium Right Atrium Systolic Pressure: 41.53 ml, 41.53 ml Dictated by: Boris William M.D. on 12/05/2024 at 15:40 Approved by: Boris William M.D. on 12/05/2024 at 15:44 Dictated By: BORIS WILLIAM Signed By: 12/05/24 1545 DD/ 1544 TD/TT: Oracle Ebs Developer: Procedure Note Radiology, Radiologist, - 12/05/2024 [place] [address] Cardiology Report Signed Patient: KRISTY VAZQUEZ#: [id number] : 6Acct:[id number] Age/Sex: 69 / MADM Date: 12/05/24 Loc: CARD Attending Dr: BORIS WILLIAM Ordering Physician: BORIS WILLIAM Date of Service: 12/05/24 Procedure(s): CA echo doppler complete Accession Number(s): [id number] cc: BORIS WILLIAM; Rudy Guerra M.D. Patient Name: KRISTY VAZQUEZ MR#: [id number] : 1955 Exam Date: 12/05/2024 Ordering Doctor: DR BORIS WILLIAM M.D. ECHOCARDIOGRAM REPORT PROCEDURE: CA ECHO DOPPLER COMPLETE INDICATIONS: Heart failure with reduced ejection fraction, pace/defib COMPARISON: None. DESCRIPTION: COMPLETE ECHOCARDIOGRAM Real-time transthoracic echocardiography with 2D, M-mode, spectral and color flow Dopplerperformed. QUALITY: Technical quality was good. LEFT VENTRICLE: Normal chamber size. Normal left ventricular wall thickness. There is global hypokinesis. Systolic function is mildly to moderately reduced. LV EF: Calculated left ventricular ejection fraction is 43%. Mildly reduced left ventricular ejection fraction, (40-45%). DIASTOLIC: Grade I diastolic dysfunction. ATRIAL SEPTUM: Visually appears intact. LEFT ATRIUM: Moderately dilated. RIGHT ATRIUM: Mildly dilated. RIGHT VENTRICLE: Normal chamber size. Normal systolic function.Pacer wire present. TRICUSPID VALVE: Normal mobility and thickness. No stenosis with mild regurgitation. No evidence of pulmonary hypertension. RVSP 31 mmHg MITRAL VALVE: Normal mobility and thickness. No evidence of mitralvalve stenosis. There is no mitral annular calcification. Mild mitral regurgitation. AORTIC VALVE: Normal trileaflet appearance. No visible sclerosis.Normal leaflet mobility. No evidence of aortic valve stenosis. Mild aortic regurgitation. AORTIC ROOT: Normal diameter and appearance, measuring 3.6 cm.Ascending aorta is mildly dilated (3.9 cm). PULMONIC VALVE: Normal thickness and mobility. No stenosis. Mild regurgitation. PERICARDIUM: No evidence of pericardial effusion. IVC: Collapses with inspirations. IVC is normal in size. PLEURA: CONCLUSION: 1. The left ventricle is normal in size and exhibits global hypokinesiswith mildly to moderately reduced systolic function. Estimated LVEF is 40 to45%. 2. Normal right ventricular size and systolic function. 3. Mild to moderate biatrial dilatation. 4. Mild mitral, aortic, tricuspid and pulmonic regurgitation. 5. Normal right-sided pressures. Adult Echocardiography Procedure Report Left Ventricle LVEDD (3.7 - 5.6 cm): 5.74 cm LVESD (2.2 - 4.0 cm): 4.65 cm LVIVS thickness (0.6 - 1.2 cm): 0.95 cm LVPW thickness (0.5 - 1.0 cm): 0.99 cm e': 0.06 m/s E - e': 4.73 LVOT Max Gradient: 2.94 mm[Hg] LVOT Area (cm2): 0.86 m/s Peak Velocity (LVOT): 0.86 m/s Mean Velocity (LVOT): 0.61 m/s LVOT Diameter 2.38 cm Left Atrium LA Volume Index (2D A2C): 23.61 ml/m2 Left Atrium Systolic Dimension: 4.17 cm Mitral Valve MV E to A Ratio: 0.39 Mitral Valve A-Wave Peak Velocity: 0.75 m/s Mitral Valve E-Wave Peak Velocity: 0.29 m/s Right Ventricle Aorta AO Root Diam: 3.63 cm Ascending Ao Diam: 3.87 cm Aortic Valve AoV Area (Peak Stanley): 3.07 cm2, 3.07 cm2 AoV Area (VTI): 3.03 cm2, 3.03 cm2 Peak Velocity(Antegrade Flow): 1.24 m/s Peak Gradient(Antegrade Flow): 6.15 mm[Hg] Mean Velocity(Antegrade Flow): 0.89 m/s Mean Gradient(Antegrade Flow): 3.54 mm[Hg] Velocity Time Integral: 28.81 cm Tricuspid Valve Peak Velocity (Regurgitant Flow): 2.65 m/s Pulmonic Valve Mean Gradient: 3.85 mm[Hg] Mean Velocity: 0.88 m/s Peak Velocity: 1.52 m/s, 1.44 m/s Peak Gradient: 8.32 mm[Hg], 9.21 mm[Hg] Right Atrium Right Atrium Systolic Pressure: 41.53 ml, 41.53 ml Dictated by: Boris William M.D. on 12/05/2024 at 15:40 Approved by: Boris William M.D. on 12/05/2024 at 15:44 Dictated By: BORIS WILLIAM Signed By:12/05/24 1545 DD/ 1544 TD/TT: Oracle Ebs Developer: us Generic External Data Provider [facility] Final Result from Last 3 Months Insurance [facility] MEDICARE COMPLETE Care Teams Courier Delivery Driver Relationship Specialty Start Date End Date Rudy Guerra MD [address] [place] [phone] PCP - General Family Medicine 01/17/24
--- OUTSIDE RECORDS SUMMARY | 2025-01-30 13:23 | XMS_ITS | Encounter Summary ---
Author Organization [facility] Address [address] [place] [address] Care Team Providers Care School Cafeteria Head Cook Name Role Phone Rudy Guerra MD Primary Care Provider [phone] Rudy Guerra MD Primary Care Provider [phone] Encounter Details Date Type Department Care Team (Late st Contact Info) Description 01/05/2024 Orders Only [facility] [address] [place] [phone] Janette Gurrola RN [address] [place] [address] Social History Tobacco Use Types Packs/Day Years Used Date Smoking Tobacco: Never Smokeless Tobacco: Current Chew Alcohol Use Standard Drinks/Week Comments Yes 6 (1 standard drink = 0.6 oz pure alcohol) caffeine intake: 1-2 cups per day of coffee/tea PHQ-2 Answer Date Recorded Patient Health Questionnaire-2 Score 0 07/22/2023 Sex and Gender Information Value Date Recorded Sex Assigned at Not on file Legal Sex Male 6:42 PM EDT Gender Identity Not on file Sexual Orientation Not on file documented as of this encounter Plan of Treatment Upcoming Encounters Date Type Department Care Team (Late st Contact Info) Description 02/05/2025 11:10 AM EDT Office Visit [facility] [address] [place] [phone] Sandra Solis MD [address] [place] [address] 06/19/2025 10:00 AM EST Office Visit [facility] [address] [place] [address] Rudy Guerra MD [address] [place] [address] documented as of this encounter Visit Diagnoses Not on filedocumented in this encounter Care Teams School Cafeteria Head Cook Relationship Specialty Start Date End Date Rudy Guerra MD PCP - General Family Medicine 03/02/23 01/16/24 Rudy Guerra MD [address] [place] [address] PCP - General Family Medicine 01/17/24 documented as of this encounter
--- OUTSIDE RECORDS SUMMARY | 2025-01-30 13:23 | XMS_ITS | Encounter Summary ---
Author Organization [facility] Address [address] [place] [address] Care Team Providers Care Recruitment Manager Name Role Phone Rudy Guerra MD Primary Care Provider [phone] Rudy Guerra MD Primary Care Provider [phone] Encounter Details Date Type Department Care Team (Late st Contact Info) Description 12/14/2023 Clinisync Result Encounter [facility] External Department Unsolicited Provider, Generic External Data Social History Tobacco Use Types Packs/Day Years [...] EDT Office Visit [facility] [address] [place] [address] Sandra Solis MD 112 [facility] [address] [place], [place] [id number] 06/19/2025 10:00 AM EST Office Visit [facility] [address] [place] [phone] Rudy Guerra MD [address] [place] [address] documented as of this encounter Procedures Procedure Name Priority Date/Time Associated Diagnosis Comments CA ECHO DOPPLER COMPLETE 12/14/2023 7:11 PM EDT documented in this encounter Results * CA ECHO DOPPLER COMPLETE (12/14/2023 7:11 PM EDT) Anatomical Region Laterality Modality Other 12/14/2023 7:11 PM EDT Narrative 12/14/2023 7:12 PM EDT [address] [address] Cardiology Report Signed Patient: KRISTY VAZQUEZ MR#: [id number] : 1955 Acct:[id number] Age/Sex: 68 / M ADM Date: 12/14/23 Loc: CARD Attending Dr: BORIS WILLIAM Ordering Physician: BOIRS WILLIAM Date of Service: 12/14/23 Procedure(s): CA echo doppler complete Accession Number(s): [id number] cc: BORIS WILLIAM; Rudy Guerra M.D. Patient Name: KRISTY VAZQUEZ MR#: [id number] : 1955 Exam Date: 12/14/2023 Ordering Doctor: DR BORIS WILLIAM M.D. ECHOCARDIOGRAM REPORT PROCEDURE: CA ECHO DOPPLER COMPLETE INDICATIONS: Heart failure with reduced ejection fraction, AICD COMPARISON: None. DESCRIPTION: COMPLETE ECHOCARDIOGRAM Real-time transthoracic echocardiography with 2D, M-mode, spectral and color flow Doppler performed. QUALITY: Technical quality was good. 68 , 185#, BP 98/62 LEFT VENTRICLE: Mild eccentric hypertrophy. Systolic function is mildly to moderately reduced. There is global hypokinesis. LV EF: Estimated left ventricular ejection fraction is 40%. DIASTOLIC: Grade 1 diastolic dysfunction. ATRIAL SEPTUM: Visually appears intact. LEFT ATRIUM: Normal chamber size. RIGHT ATRIUM: Normal chamber size. RIGHT VENTRICLE: Normal chamber size. Normal systolic function. Pacer wire present. TRICUSPID VALVE: Normal mobility and thickness. No stenosis with mild regurgitation. No evidence of pulmonary hypertension. RVSP 25 mmHg MITRAL VALVE: Normal mobility and thickness. No evidence of mitral valve stenosis. There is no mitral annular calcification. Mild mitral regurgitation. AORTIC VALVE: Normal trileaflet appearance. No visible sclerosis. Normal leaflet mobility. No evidence of aortic valve stenosis. Mild to moderate aortic regurgitation. AORTIC ROOT: The aortic root is mildly dilated, measuring 3.8 cm. Ascending aorta is normal in size, measuring 3.4 cm. PULMONIC VALVE: Normal thickness and mobility. No stenosis. Trivial regurgitation. PERICARDIUM: No evidence of pericardial effusion. IVC: Collapses with inspirations. IVC is normal in size. PLEURA: CONCLUSION: 1. The left ventricle exhibits mild eccentric hypertrophy with mildly to moderately reduced systolic function. Estimated ejection fraction is 40%. 2. Normal right ventricular size and systolic function. 3. Mild mitral and tricuspid regurgitation. 4. Mild to moderate aortic regurgitation. 5. Normal right-sided pressures. Adult Echocardiography Procedure Report Left Ventricle LVEDD (3.7 - 5.6 cm): 5.70 cm LVESD (2.2 - 4.0 cm): 4.64 cm LVIVS thickness (0.6 - 1.2 cm): 0.90 cm LVPW thickness (0.5 - 1.0 cm): 1.09 cm e': 0.06 m/s E - e': 5.68 LVOT Max Gradient: 1.73 mm[Hg] LVOT Area (cm2): 0.66 m/s Peak Velocity (LVOT): 0.66 m/s Mean Velocity (LVOT): 0.42 m/s LVOT Diameter 2.66 cm Left Atrium LA Volume Index (2D A2C): 29.06 ml/m2 Left Atrium Systolic Dimension: 4.29 cm Mitral Valve MV E to A Ratio: 0.50 Mitral Valve A-Wave Peak Velocity: 0.71 m/s Mitral Valve E-Wave Peak Velocity: 0.36 m/s Right Ventricle Aorta AO Root Diam: 3.77 cm Ascending Ao Diam: 3.40 cm Aortic Valve AoV Area (Peak Stanley): 2.81 cm2, 2.81 cm2 AoV Area (VTI): 2.64 cm2, 2.64 cm2 Peak Velocity(Antegrade Flow): 1.31 m/s Peak Gradient(Antegrade Flow): 6.82 mm[Hg] Mean Velocity(Antegrade Flow): 0.91 m/s Mean Gradient(Antegrade Flow): 3.81 mm[Hg] Velocity Time Integral: 30.09 cm Tricuspid Valve Peak Velocity (Regurgitant Flow): 2.35 m/s Pulmonic Valve Peak Gradient: 7.23 mm[Hg], 6.30 mm[Hg] Right Atrium Right Atrium Systolic Pressure: 37.68 ml, 37.68 ml Dictated by: Boris William M.D. on 12/14/2023 at 19:04 Approved by: Boris William M.D. on 12/14/2023 at 19:11 Dictated By: BORIS WILLIAM Signed By: 12/14/231911 DD/ 10 TD/TT: Hog Counter: Procedure Note Radiology, Radiologist, - 12/14/2023 [place] [address] Cardiology Report Signed Patient: KRISTY VAZQUEZMR#: [id number] : 1955cct:[id number] Age/Sex: 68 / MADM Date: 12/14/23 Loc: CARD Attending Dr: BORIS WILLIAM Ordering Physician: BORIS WILLIAM Date of Service: 12/14/23 Procedure(s): CA echo doppler complete Accession Number(s): [id number] cc: BORIS WILLIAM; Rudy Guerra M.D. Patient Name: KRISTY VAZQUEZ MR#: [id number] : 1955 Exam Date: 12/14/2023 Ordering Doctor: DR BORIS WILLIAM M.D. ECHOCARDIOGRAM REPORT PROCEDURE: CA ECHO DOPPLER COMPLETE INDICATIONS: Heart failure with reduced ejection fraction, AICD COMPARISON: None. DESCRIPTION: COMPLETE ECHOCARDIOGRAM Real-time transthoracic echocardiography with 2D, M-mode, spectral and color flow Dopplerperformed. QUALITY: Technical quality was good. 68 , 185#, BP 98/62 LEFT VENTRICLE: Mild eccentric hypertrophy. Systolic function ismildly to moderately reduced. There is global hypokinesis. LV EF: Estimated left ventricular ejection fraction is 40%. DIASTOLIC: Grade 1 diastolic dysfunction. ATRIAL SEPTUM: Visually appears intact. LEFT ATRIUM: Normal chamber size. RIGHT ATRIUM: Normal chamber size. RIGHT VENTRICLE: Normal chamber size. Normal systolic function.Pacer wire present. TRICUSPID VALVE: Normal mobility and thickness. No stenosis with mild regurgitation. No evidence of pulmonary hypertension. RVSP 25 mmHg MITRAL VALVE: Normal mobility and thickness. No evidence of mitralvalve stenosis. There is no mitral annular calcification. Mild mitral regurgitation. AORTIC VALVE: Normal trileaflet appearance. No visible sclerosis.Normal leaflet mobility. No evidence of aortic valve stenosis. Mild to moderate aortic regurgitation. AORTIC ROOT: The aortic root is mildly dilated, measuring 3.8 cm. Ascending aorta is normal in size, measuring 3.4 cm. PULMONIC VALVE: Normal thickness and mobility. No stenosis. Trivial regurgitation. PERICARDIUM: No evidence of pericardial effusion. IVC: Collapses with inspirations. IVC is normal in size. PLEURA: CONCLUSION: 1. The left ventricle exhibits mild eccentric hypertrophy with mildly to moderately reduced systolic function. Estimated ejection fraction is 40%. 2. Normal right ventricular size and systolic function. 3. Mild mitral and tricuspid regurgitation. 4. Mild to moderate aortic regurgitation. 5. Normal right-sided pressures. Adult Echocardiography Procedure Report Left Ventricle LVEDD (3.7 - 5.6 cm): 5.70 cm LVESD (2.2 - 4.0 cm): 4.64 cm LVIVS thickness (0.6 - 1.2 cm): 0.90 cm LVPW thickness (0.5 - 1.0 cm): 1.09 cm e': 0.06 m/s E - e': 5.68 LVOT Max Gradient: 1.73 mm[Hg] LVOT Area (cm2): 0.66 m/s Peak Velocity (LVOT): 0.66 m/s Mean Velocity (LVOT): 0.42 m/s LVOT Diameter 2.66 cm Left Atrium LA Volume Index (2D A2C): 29.06 ml/m2 Left Atrium Systolic Dimension: 4.29 cm Mitral Valve MV E to A Ratio: 0.50 Mitral Valve A-Wave Peak Velocity: 0.71 m/s Mitral Valve E-Wave Peak Velocity: 0.36 m/s Right Ventricle Aorta AO Root Diam: 3.77 cm Ascending Ao Diam: 3.40 cm Aortic Valve AoV Area (Peak Stanley): 2.81 cm2, 2.81 cm2 AoV Area (VTI): 2.64 cm2, 2.64 cm2 Peak Velocity(Antegrade Flow): 1.31 m/s Peak Gradient(Antegrade Flow): 6.82 mm[Hg] Mean Velocity(Antegrade Flow): 0.91 m/s Mean Gradient(Antegrade Flow): 3.81 mm[Hg] Velocity Time Integral: 30.09 cm Tricuspid Valve Peak Velocity (Regurgitant Flow): 2.35 m/s Pulmonic Valve Peak Gradient: 7.23 mm[Hg], 6.30 mm[Hg] Right Atrium Right Atrium Systolic Pressure: 37.68 ml, 37.68 ml Dictated by: Boris William M.D. on 12/14/2023 at 19:04 Approved by: Boris William M.D. on 12/14/2023 at 19:11 Dictated By: BORIS WILLIAM Signed By:12/14/231911 DD/ 10 TD/TT: Hog Counter: us Generic External Data Provider [facility] Final Result documented in this encounter Visit Diagnoses Not on filedocumented in this encounter Care Teams Recruitment Manager Relationship Specialty Start Date End Date Rudy Guerra MD PCP - General Family Medicine 03/02/23 01/16/24 Rudy Guerra MD [address] [place] [address] PCP - General Family Medicine 01/17/24 documented as of this encounter
--- OUTSIDE RECORDS SUMMARY | 2025-01-30 13:23 | XMS_ITS | Encounter Summary ---
Author Organization [facility] Address [address] [place] [address] Care Team Providers Care Research Attorney Name Role Phone Rudy Guerra MD Primary Care Provider [phone] Reason for Visit * Reason Comments Med Refill Encounter Details Date Type Department Care Team (Late st Contact Info) Description 08/27/2023 Refill [facility] Heart at [facility] [address] [place] [address] Chencho Benjamin MD [address] [place] [address] Coronary artery disease involving barrow coronary artery of barrow heart without angina pectoris Social History Tobacco Use Types Packs/Day Years Used Date Smoking Tobacco: Former Cigarettes Smokeless Tobacco: Never Alcohol Use Standard Drinks/Week Comments Yes 14 (1 standard drink = 0.6 oz pu re alcohol) occasional Sex and Gender Information Value Date Recorded Sex Assigned at Not on file Legal Sex Male 10:53 PM EDT Gender Identity Not on file Sexual Orientation Not on file documented as of this encounter Plan of Treatment Upcoming Encounters Date Type Department Care Team (Late st Contact Info) Description 02/06/2025 11:00 AM EDT Hospital Encounter [facility] Heart and V[facility] Center Vascular Lab [address] [place] [address] Hay William MD [address] [place] [address] [facility] [place] [phone] Paroxysmal atrial fibrillation (CMS/HCC) 02/06/2025 11:00 AM EDT - 02/06/2025 1:00 PM EDT Surgery [facility] Heart and [facility] Vascular Lab [address] [place] [address] Hay William MD [address] [facility] [place] [address] [facility] [place] [address] Left atrial appendage closure (transvenous) [80730 (CPT )] documented as of this encounter Visit Diagnoses Diagnosis Coronary artery disease involving barrow coronary artery of barrow heart without angina pectoris Paroxysmal atrial fibrillation (CMS/HCC)- Primary Atrial fibrillation Paroxysmal atrial fibrillation (CMS/HCC) Atrial fibrillation documented in this encounter Care Teams Research Attorney Relationship Specialty Start Date End Date Rudy Guerra MD [address] [place] [address] PCP - General 07/03/22 documented as of this encounter
--- OUTSIDE RECORDS SUMMARY | 2025-01-30 13:23 | XMS_ITS | Encounter Summary ---
Author Organization [facility] Address [address] [place] [address] Care Team Providers Care Fundraising Officer Name Role Phone Rudy Guerra MD Primary Care Provider Reason for Visit * Reason Comments Med Refill Encounter Details Date Type Department Care Team (Late st Contact Info) Description 06/15/2023 Refill [facility] Heart at [facility] [address] [place] [address] Chencho Benjamin MD [address] [place] [address] Coronary artery disease involving tetlin coronary artery of tetlin heart without angina pectoris Social History Tobacco [...] Description 02/06/2025 11:00 AM EDT Hospital Encounter [facility] Heart and Vascular Center Vascular Lab [address] [place] [address] Hay William MD [address] [place] [address] [facility] [place] [phone] Paroxysmal atrial fibrillation (CMS/HCC) 02/06/2025 11:00 AM EDT - 02/06/2025 1:00 PM EDT Surgery [facility] Heart and Vascular Center Vascular Lab [address] [place] [address] Hay William MD [address] [facility] [place] [address] [facility] [place] [address] Left atrial appendage closure (transvenous) [11144 (CPT )] documented as of this encounter Visit Diagnoses Diagnosis Coronary artery disease involving tetlin coronary artery of tetlin heart without angina pectoris Paroxysmal atrial fibrillation (CMS/HCC)- Primary Atrial fibrillation Paroxysmal atrial fibrillation (CMS/HCC) Atrial fibrillation documented in this encounter Care Teams Fundraising Officer Relationship Specialty Start Date End Date Rudy Guerra MD [address] [place] [address] PCP - General 07/03/22 documented as of this encounter
--- OUTSIDE RECORDS SUMMARY | 2025-01-30 13:23 | XMS_ITS | Encounter Summary ---
Author Organization [facility] Address [address] [place] [address] Care Team Providers Care Religion Instructor Name Role Phone Rudy Guerra MD Primary Care Provider [phone] Reason for Visit * Reason Onset Date Comments Med Refill 01/16/2025 Encounter Details Date Type Department Care Team (Late Contact Info) Description 01/16/2025 Refill [facility] [address] [place] [address] Rudy Guerra MD [address] [place] [address] Mild persistent asthma without complication (HCC) Social History Tobacco Use Types Packs/Day Years [...] Encounters Date Type Department Care Team (Late Contact Info) Description 02/05/2025 11:10 AM EDT Office Visit [facility] [address] [facility] 130 [place] [phone] Sandra Solis MD 112 [facility] 130 [place], [place] [phone] 06/19/2025 10:00 AM EST Office Visit [facility] [address] [place] [address] Rudy Guerra MD [address] [place] [address] documented as of this encounter Visit Diagnoses Diagnosis Mild persistent asthma without complication (HCC) documented in this encounter Care Teams Religion Instructor Relationship Specialty Start Date End Date Rudy Guerra MD [address] [place] [address] PCP - General Family Medicine 01/17/24 documented as of this encounter
--- OUTSIDE RECORDS SUMMARY | 2025-01-30 13:24 | XMS_ITS | Encounter Summary ---
Author Organization [facility] Address [address] [place] [address] Care Team Providers Care Adult Specialist Name Role Phone Rudy Guerra MD Primary Care Provider [phone] Reason for Visit * Reason Comments Med Change Request Encounter Details Date Type Department Care Team (Late st Contact Info) Description 08/02/2022 Refill [facility] Heart at [facility] [address] [place] [address] Chencho Benjamin MD [address] [place] [address] Coronary artery disease involving koi coronary artery of koi heart without angina pectoris Social History Tobacco [...] on file Sexual Orientation Not on file COVID-19 Exposure Response Date Recorded In the last 10 days, have yo u been in contact with someone who was confirmed or suspected to have Coronavirus/COVID-19? No / Unsure 07/06/2022 11:15 AM EST documented as of this encounter Plan of Treatment Upcoming Encounters Date Type Department Care Team (Late st Contact Info) Description 02/06/2025 11:00 AM EDT Hospital Encounter [facility] Heart and Vascular Center Vascular Lab [address] [place] [phone] Hay William MD [address] [facility] [place] [address] [facility] [place] [address] Paroxysmal atrial fibrillation (CMS/HCC) 02/06/2025 11:00 AM EDT - 02/06/2025 1:00 PM EDT Surgery [facility] Heart and Vascular Center Vascular Lab [address] [place] [address] Hay William MD [address] [facility] [place] [address] [facility] [place] [address] Left atrial appendage closure (transvenous) [29301 (CPT )] documented as of this encounter Visit Diagnoses Diagnosis Coronary artery disease involving koi coronary artery of koi heart without angina pectoris Paroxysmal atrial fibrillation (CMS/HCC)- Primary Atrial fibrillation Paroxysmal atrial fibrillation (CMS/HCC) Atrial fibrillation documented in this encounter Care Teams Adult Specialist Relationship Specialty Start Date End Date Rudy Guerra MD [address] [place] [address] PCP - General 07/03/22 documented as of this encounter
--- OUTSIDE RECORDS SUMMARY | 2025-01-30 13:24 | XMS_ITS ---
Author Organization [facility] Address [address] [place] [address] Care Team Providers Care Breast Worker Name Role Phone Rudy Guerra MD Primary Care Provider [phone] Active Problems Problem Noted Date Diagnosed Date PAF (paroxysmal atrial fibrillation) 01/24/2025 Paroxysmal atrial fibrillation 07/22/2023 Overview (01/06/2024): Last Assessment & Plan: In NSR and continue medication. Follow up with cardiology. Chronic pansinusitis 03/02/2023 05/11/2023 Nasal polyp 03/02/2023 05/11/2023 ICD (implantable cardioverter-defibrillator) in place 09/15/2022 Assessment & Plan (02/19/2023 1:06 PM EDT): No DFT since implantation RTC q 6 months of device interrogation and pt is due for interrogation this coming march Nonischemic cardiomyopathy 09/01/2022 Overview (09/01/2022): Added automatically from request for surgery [id number] Assessment & Plan (01/06/2024 11:58 AM EDT): Congestive heart failure remains stable Assessment & Plan (02/19/2023 1:06 PM EDT): As above Depressive disorder 08/31/2022 Dyslipidemia 08/31/2022 Assessment & Plan (02/19/2023 1:06 PM EDT): Continue statin Prediabetes 08/31/2022 Seasonal allergic rhinitis 08/31/2022 Steatosis of liver 08/31/2022 Vitamin D deficiency 08/31/2022 Coronary artery disease invo lving red devil coronary artery of red devil heart without angina pectoris 07/06/2022 Assessment & Plan (01/06/2024 12:03 PM EDT): Coronary artery disease is stable Continue GDMT- lipitor, toprol continue risk factor modifications- heart healthy diet, regular exercise as tolerated and continue all medications. Assessment & Plan (02/19/2023 1:05 PM EDT): Coronary artery disease is stable Continue GDMT- ASA lipitor and toprol- Pt tolerating cardiac rehab well and states he has 1 more week of rehab continue risk factor modifications- heart healthy diet, regular exercise as tolerated and continue all medications. Assessment & Plan (07/06/2022 10:38 PM EST): Coronary artery disease is mild and stable -will add aspirin 81mg and moderate statin therapy lipitor 40mg Chronic systolic heart failure 07/06/2022 Assessment & Plan (01/06/2024 12:03 PM EDT): [facility]HC II- currently EF improved from 25-30% to 40% Remains euvolemic and stable Continue GDMT- lipitor, farxiga, toprol, entresto and aldactone Diuretic therapy- continue farxiga Monitor daily weights, I&O, fluid restriction 1.5-2L/day, renal function and electrolytes- Currently stable - improved EF- continue all medications Assessment & Plan (02/19/2023 1:05 PM EDT): NYHC II- currently euvolemic without exacerbation Continue GDMT- ASA, lipitor, toprol, farxiga, aldactone and will increase entresto to 49-51 mg bid Repeat BMP in 1 week to assess renal function and electrolyes Diuretic therapy- farxiga- pt is euvolemic currently Monitor daily weights, I&O, fluid restriction 1.5-2L/day, renal function and electrolytes- History of malignant neoplasm of prostate 2021 Hypomagnesemia 07/03/2022 Hypertension 07/03/2022 Assessment & Plan (02/19/2023 1:06 PM EDT): Hypertension is well controlled Continue all meds Renal function has been stable Assessment & Plan (07/06/2022 10:32 PM EST): Hypertension is stable Continue medications New onset of congestive heart failure 07/02/2022 Assessment & Plan (07/06/2022 10:32 PM EST): -per cath results, will consider adding SGLT2 and MRA if repeat echo in 1 month does not show improved systolic function -EF 25%, discharged with lifevest -pending repeat echo 1 month may consider 3 month echo, from there if EF not >35% he will need an ICD, pending future visit ECG if he has wide complexes he may no BiV ICD -continue [id number], entresto 24-, will add medications pending echo Syncope and collapse 07/02/2022 Overview (07/03/2022): Added automatically from request for surgery [id number] Asthma 07/29/2012 Mild persistent asthma without complication 07/19 Overview (01/06/2024): Last Assessment & Plan: No SOB and continue advair. Use albuterol PRN. Benign essential hypertension 05/27/2011 Hyperlipidemia 07/02/2008 05/11/2023 Assessment & Plan (01/06/2024 11:59 AM EDT): Script for liver function and lipid levels given to pt Continue statin Malignant tumor of prostate 07/02/200804/19 Current Treatment and Therapy Plans No current plan information found. Past Treatment and Therapy Plans No past plan information found. Lifetime Dose Tracking * Chemical Lifetime Dose Automatic Entry Manual Entr y Fluoro Time 4.96 minutes 0 minutes 4.96 minutes Air Kerma 417 mGy 0 mGy 417 mGy Resolved Problems Problem Noted Date Diagnosed Date Resolved Date Hx of benign neoplasm of prostate 07/03/2022 07/03/2022
--- OUTSIDE RECORDS SUMMARY | 2025-01-30 13:24 | XMS_ITS | Clinical Summary ---
Author Organization [facility] Address [address] [place] [address] Care Team Providers Care Planning Supervisor Name Role Phone Rudy King MD Primary Care Provider [phone] Allergies Active Allergy Reactions Criticality Noted Date Comments Octacosanol Unknown 01/17/2024 Other Reaction(s): Unknown Medications albuterol 90 mcg/actuation inhaler Inhale 2 puffs every 4 (four) hours if needed for wheezing. Active fluticasone (Flonase) 50 mcg/actuation nasal spray Administer 2 sprays into each nostril in the morning. Shake gently. Before first use, prime pump. After use, clean tip and replace cap. Active allopurinol (Zyloprim) 300 mg tablet Take 300 mg by mouth in the morning. Active Dupixent Syringe 300 mg/2 mL syringe injection Inject 300 mg under the skin. 3 Active fluticasone propion-salmetero L (Advair Diskus) 500-50 mcg/dose diskus inhaler Inhale 1 puff two times daily. 3 Active apixaban (Eliquis) 5 mg tabletIndications :Paroxysmal atrial fibrillation (CMS/HCC) Take 1 tablet (5 mg) by mouth two times daily. 180 tablet 3 4 02/25/20 25 Active dapagliflozin propanediol (Farxiga) 10 mgIndications:Chr onic systolic congestive heart failure (CMS/HCC) Take 1 tablet (10 mg) by mouth once daily as directed. 90 tablet 3 4 05/08/20 25 Active sacubitril-valsar cowan (Entresto) 97-103 mg tabletIndications :Chronic systolic heart failure (CMS/HCC),Primary hypertension Take 1 tablet by mouth two times daily. 180 tablet 3 4 07/03/20 25 Active metoprolol succinate XL (Toprol-XL) 50 mg 24 hr tabletIndications :Chronic systolic heart failure (CMS/HCC) Take 1 tablet (50 mg) by mouth once daily as directed. Do not crush or chew. 90 tablet 3 5 08/08/19 26 Active spironolactone (Aldactone) 25 mg tabletIndications :Chronic systolic heart failure (CMS/HCC) Take 1 tablet (25 mg) by mouth in the morning. 90 tablet 3 5 08/18/19 26 Active atorvastatin (Lipitor) 40 mg tabletIndications :Coronary artery disease involving [place] coronary artery of [place] heart without angina pectoris Take 1 tablet (40 mg) by mouth at bedtime. 90 tablet 3 5 Active Active Problems Problem Noted Date Diagnosed Date [...] (09/01/2022): Added automatically from request for surgery [id number] Assessment & Plan (01/06/2024 11:58 AM EDT): Congestive heart failure remains stable Assessment & Plan (02/19/2023 1:06 PM EDT): As above Depressive disorder 08/31/2022 Dyslipidemia 08/31/2022 Assessment & Plan (02/19/2023 1:06 PM EDT): Continue statin Prediabetes 08/31/2022 Seasonal allergic rhinitis 08/31/2022 Steatosis of liver 08/31/2022 Vitamin D deficiency 08/31/2022 Coronary artery disease invo lving [place] coronary artery of [place] heart without angina pectoris 07/06/2022 Assessment & [...] complexes he may no BiV ICD -continue [id number], entresto 24-, will add medications pending echo Syncope and collapse 07/02/2022 Overview (07/03/2022): Added automatically from request for surgery [id number] Asthma 07/29/2012 Mild persistent asthma without complication 07/19 Overview (01/06/2024): Last Assessment & Plan: No SOB and continue advair. Use albuterol PRN. Benign essential hypertension 05/27/2011 Hyperlipidemia 07/02/2008 05/11/2023 Assessment & Plan (01/06/2024 11:59 AM EDT): Script for liver function and lipid levels given to pt Continue statin Malignant tumor of prostate 07/02/200804/19 Resolved Problems Problem Noted Date Diagnosed Date Resolved Date Hx of benign neoplasm of prostate 07/03/2022 07/03/2022 Encounters Date Type Department Care Team Description 01/03/2025 Orders Only [facility] [address] [facility] [place] [address] Neelam Gutierrez CNP Paroxysmal atrial fibrillation (CMS/HCC) (Primary Dx) 12/22/2024 9:35 AM EDT Ancillary Procedure [facility] [address] [place] [address] Pre-operative cardiovascular examination, ICD in place 12/20/2024 Orders Only [facility] [address] [place] [address] Mitesh Webb MD 12/01/2024 10:06 AM EDT - 12/01/2024 11:59 PM EDT Hospital Encounter [facility] Heart [facility] [address] [place] [address] Paroxysmal atrial fibrillation (CMS/HCC) Discharge Disposition: Home or Self Care () 12/01/2024 Travel 11/23/2024 Travel 11/23/2024 Telephone [facility] Heart [facility] [address] [place] [address] Brigitte Law RN 11/21/2024 4:15 PM EDT Ancillary Procedure [facility] [address] [place] [address] Pre-operative cardiovascular examination, ICD in place 11/19/2024 Orders Only [facility] [address] [place] [address] Mitesh Webb MD 11/13/2024 10:00 AM EDT Office Visit [facility] [address] [facility] [place] [address] aHy William MD Chronic systolic heart failure (CMS/HCC) (Primary Dx); Coronary artery disease involving [place] coronary artery of [place] heart without angina pectoris; Paroxysmal atrial fibrillation (CMS/HCC); Primary hypertension; ICD (implantable cardioverter-defibrill ator) in place; Nonischemic cardiomyopathy (CMS/HCC); Ecchymosis 11/07/2024 10:45 AM EDT Ancillary Procedure [facility] [address] [place] [address] Encounter for implantable defibrillator reprogramming or check 11/06/2024 Refill [facility] [address] [place] [address] Mercedes Prado MA Coronary artery disease involving [place] coronary artery of [place] heart without angina pectoris 11/05/2024 Orders Only [facility] [address] [place] [address] Bobo Raymond MD from Last 3 Months Immunizations Immunization Administration Dates Next Due DTP 07/01/2022 Influenza, Unspecified 07/29/2012 Unspecified Sars-Cov-2 Vaccination 05/30/2021,,2020 Family History Medical History Relation Name Comments pacemaker Mother Relation Name Status Comments Mother Social History Tobacco Use Types Packs/Day Years Used Date Smoking Tobacco: Former Cigarettes Smokeless Tobacco: Never Tobacco Cessation:Counseling Given: Not Answered Alcohol Use Standard Drinks/Week Comments Yes 14 (1 standard drink = 0.6 oz pu re alcohol) occasional [place] Safety & Environment Answer Date Rec orded Fear of Current or Ex-Partner Not on file Emotionally Abused Not on file 09/09/2023 Physically Abused Not on file 09/09/2023 Sexually Abused Not on file 09/09/2023 Physically or Sexually Abused Not on file Sex and Gender Information Value Date Recorded Sex Assigned at Not on file Legal Sex Male 10:53 PM EDT Gender Identity Not on file Sexual Orientation Not on file Last Filed Vital Signs Vital Sign Reading Time Taken Comments Blood Pressure 121/87 12/01/2024 1:15 PM EDT Pulse 93 12/01/2024 1:15 PM EDT Temperature 36.8 C (98.2 F) 07/04/2022 8:45 AM EST Respiratory Rate 22 12/01/2024 1:15 PM EDT Oxygen Saturation 93% 12/01/2024 1:15 PM EDT Inhaled Oxygen Concentration - - Weight 88 kg (194 lb) 11/13/2024 11:10 AM EDT Height 172.7 cm (5' 8 ) 11/13/2024 11:10 AM EDT Body Mass Index 29.5 11/13/2024 11:10 AM EDT Plan of Treatment Upcoming Encounters Date Type Department Care Team (Late st Contact Info) Description 02/06/2025 11:00 AM EDT Hospital Encounter [facility] Heart [facility] [address] [place] [address] Hay William MD [address] [place] [address] Paroxysmal atrial fibrillation (CMS/HCC) 02/06/2025 11:00 AM EDT - 02/06/2025 1:00 PM EDT Surgery [facility] Heart [facility] [address] [place] [address] Hay William MD [address] [place] [address] Left atrial appendage closure (transvenous) [74074 (CPT )] Health Maintenance Due Date Last Done Comments CT Colonography 1955 Diabetes: Hemoglobin A1C 1955 FIT-DNA 1955 FIT 1955 FOBT 1955 Medicare Annual Wellness (AWV) 1955 Sigmoidoscopy 1955 Depression Screening 1967 Pneumococcal Vaccine: 50+ Years (1 of 2 - PCV) 09/19/1974 Adult Tetanus 09/19/1977 Zoster Vaccines (1 of 2) 09/19/2005 Colonoscopy 01/24/2018 01/25/2008 Colorectal Cancer Screening 01/24/2018 Fall Risk Screening 09/19/2020 COVID-19 Vaccine ( season) 2024 05/30/2021, 05/30/2021, 10/11/2020, Additional history exists Influenza Vaccine (#1) 2025 07/29/2012 HIB Vaccines Aged Out No longer eligi ble based on patient's age to complete this topic HPV Vaccines Aged Out No longer eligi ble based on patient's age to complete this topic IPV Vaccines Aged Out No longer eligi ble based on patient's age to complete this topic Meningococcal B Vaccine Aged Out No l onger eligible based on patient's age to complete this topic Meningococcal Vaccine Aged Out No claritza pablo eligible based on patient's age to complete this topic Rotavirus Vaccines Aged Out No longer eligible based on patient's age to complete this topic Medical Devices Implanted Type Area Senior Gamemaster Device Identifier Shelf Expiration Date Model / Serial / Lot Courtney Romano Df4-Dr - [id number] - [id number] Implanted:Qty: 1 on 09/04/2022 by Bobo Raymond MD at [facility] ICD [employer] [id number] 06/03/2024 [id number] / [place] 4-Front S Active Fix Single Coil 59cm Implanted:Qty: 1 on 09/04/2022 by Bobo Raymond MD at [facility] [employer] [id number] 07/28/2024 [id number] / Ingevity+ Is-1 Bi Positive Fix Ra/Rv 52cm Implanted:Qty: 1 on 09/04/2022 by Bobo Raymond MD at [facility] [employer] [id number] 08/18/2024 [id number] / Procedures Procedure Name Priority Date/Time Associated Diagnosis Comments CARDIAC DEVICE CHECK CHECK - REMOTE Routine 12/29/2024 12:36 PM EDT Pre-operative cardiovascular examination, ICD in place CARDIAC DEVICE CHECK - REMOTE - ICD Routine 12/20/2024 12:00 AM EDT TRANSESOPHAGEAL ECHO (MASON) W/ COLOR FLOW Routine 12/01/2024 12:58 PM EDT Paroxysmal atrial fibrillation (CMS/HCC) BASIC METABOLIC PANEL STAT 12/01/2024 10:35 AM EDT CBC STAT 12/01/2024 10:35 AM EDT CARDIAC DEVICE CHECK CHECK - REMOTE Routine 11/30/2024 1:25 PM EDT Pre-operative cardiovascular examination, ICD in place CARDIAC DEVICE CHECK - REMOTE - ICD Routine 11/19/2024 12:00 AM EDT CARDIAC DEVICE CHECK - IN CLINIC - ICD DUAL CHAMBER W/ PROG Routine 11/16/2024 12:11 PM EDT Encounter for implantable defibrillator reprogramming or check CARDIAC DEVICE CHECK - REMOTE - ICD Routine 11/05/2024 12:00 AM EDT from Last 3 Months Results * CARDIAC DEVICE CHECK - REMOTE - ICD (12/29/2024 12:36 PM EDT) Only the most recent of2 resultswithin the time period is included. Bobo Raymond MD CV IMPLANTABLE CARDIAC DEVICE CO OCEDURES Final Result CPACS * Cardiac device check - Remote ICD (12/20/2024 12:00 AM EDT) Only the most recent of3 resultswithin the time period is included. Anatomical Region Laterality Modality Other 12/20/2024 us Mitesh Webb MD CV IMPLANTABLE CARDIAC DEVICE PROCEDURES Final Result * TRANSESOPHAGEAL ECHO (MASON) W/ COLOR FLOW (12/01/2024 12:58 PM EDT) Anatomical Region Laterality Modality Other 12/01/2024 12:0 0 PM EDT Narrative 12/01/2024 11:04 PM EDT 1 [facility] Heart Station [address] [facility] [place] [address] [phone] (fax) Transesophageal Echocardiogram-[facility] Name: KRISTY DOHERTY Study Date: 12/01/2024 12:00 PM B/P: 134 mmHg/87 mmHg HR: 80 bpm Date of : 1955 Location: [facility] Height: 68 in. Age: 69 year(s) Patient Room: Weight: 194 lb. Gender: Male Patient Status: OutPt BSA: 2.02 m2 Indication: Atrial Fibrillation, Pre-Watchman Examination: MASON, Color flow imaging Image Quality: Excellent Patient Consent: Informed, written consent was obtained for the procedure Exam Location: A MASON was performed in the Engineering Director without complications Anesthesia Pharyngeal anesthesia with viscous Lidocaine Conclusions Left Ventricle: The left ventricle is normal size. Global left ventricular systolic function is severely reduced. EF range is estimated at 25 % -30 %. Left ventricular wall thickness is normal. Diffuse global hypokinesis. Right Ventricle: The right ventricle appears normal in size. Normal right ventricular systolic function. Left Atrium: The left atrium is severely enlarged. Left Atrium Appendage: The left atrial appendage is monolobular. Normal left atrial appendage, no thrombus seen. ROBB measutments are below Mitral Valve: The mitral valve is normal in mobility and thickness. Mild to moderate mitral regurgitation. Aortic Valve: Moderate aortic valve regurgitation. Pericardium: There is a minimal pericardial effusion. Medications Date Time Name Route Form Dose Units Ordered By Given By Comment 12/01/2024 01:03 PM Midazolam HCL (Versed) 3 milligrams 12/01/2024 01:03 PM Fentanyl (Opiates) 50 micrograms Valvular Assessment LVOT 0.7 - 1.1 m/sec Aortic Valve 1.0 - 1.7 m/sec Mitral Valve 0.6 - 1.3 m/sec Tricuspid Valve 0.3 - 0.7 m/sec Pulmonic Valve 0.6 - 0.9 m/sec Regurgitation Mod MildMod Trivial Trivial Watchman Table Degrees Width Depth 0 16.8 21.8I 45 18.2 32.0I 90 22.1 I30.7 135 20.0 25.0I Findings Left Ventricle: The left ventricle is normal size. Global left ventricular systolic function is severely reduced. EF range is estimated at 25 % -30 %. Left ventricular wall thickness is normal. Diffuse global hypokinesis. Right Ventricle: The right ventricle appears normal in size. Normal right ventricular systolic function. A pacing wire is present. Left Atrium: The left atrium is severely enlarged. Left Atrium Appendage: The left atrial appendage is normal. The left atrial appendage is monolobular. Normal left atrial appendage, no thrombus seen. ROBB measutments are below IAS: No atrial septal defect. No spontaneous transseptal color flow. Right Atrium: The right atrium appears enlarged. Mitral Valve: The mitral valve is normal in mobility and thickness. Mild to moderate mitral regurgitation. Aortic Valve: The aortic valve is normal. Moderate aortic valve regurgitation. The aortic valve is trileaflet. The regurgitant jet is directed centrally. Tricuspid Valve: Normal tricuspid valve. Trivial tricuspid regurgitation. Pulmonic Valve: Pulmonic valve is poorly visualized. Trivial pulmonary regurgitation. Aorta: The aortic root is normal in size. Pericardium: There is a minimal pericardial effusion. The Attending Physician was present and personally reviewed the examination with the fellow Procedure Staff Reading Group: [facility] Referring Physician: RUDY KING Cone Machine Operator: DORIAN Walker Ordering Physician: Hay William MD Procedure Note Hay William MD - 12/01/2024 1 [facility] [address] [facility] [place] [address] [phone] (fax) Transesophageal Echocardiogram-[facility] Name: KRISTY DOHERTY Study Date: 12/01/2024 12:00 PM B/P: 134 mmHg/87 mmHg HR: 80 bpm Date of : 1955 Location: [facility] Height: 68 in. Age: 69 year(s) Patient Room: Weight: 194 lb. Gender: Male Patient Status: OutPt BSA: 2.02 m2 Indication: Atrial Fibrillation, Pre-Watchman Examination: MASON, Color flow imaging Image Quality: Excellent Patient Consent: Informed, written consent was obtained for the procedure Exam Location: A MASON was performed in the Engineering Director without complications Anesthesia Pharyngeal anesthesia with viscous Lidocaine Conclusions Left Ventricle: The left ventricle is normal size. Global left ventricular systolic function is severely reduced. EF range is estimated at 25 % -30 %. Left ventricular wall thickness is normal. Diffuse global hypokinesis. Right Ventricle: The right ventricle appears normal in size. Normal right ventricular systolic function. Left Atrium: The left atrium is severely enlarged. Left Atrium Appendage: The left atrial appendage is monolobular. Normal left atrial appendage, no thrombus seen. ROBB measutments are below Mitral Valve: The mitral valve is normal in mobility and thickness. Mild to moderate mitral regurgitation. Aortic Valve: Moderate aortic valve regurgitation. Pericardium: There is a minimal pericardial effusion. Medications Date Time Name Route Form Dose Units Ordered By Given By Comment 12/01/2024 01:03 PM Midazolam HCL (Versed) 3 milligrams 12/01/2024 01:03 PM Fentanyl (Opiates) 50 micrograms Valvular Assessment LVOT 0.7 - 1.1 m/sec Aortic Valve 1.0 - 1.7 m/sec Mitral Valve 0.6 - 1.3 m/sec Tricuspid Valve 0.3 - 0.7 m/sec Pulmonic Valve 0.6 - 0.9 m/sec Regurgitation Mod MildMod Trivial Trivial Watchman Table Degrees Width Depth 0 16.8 21.8I 45 18.2 32.0I 90 22.1 I30.7 135 20.0 25.0I Findings Left Ventricle: The left ventricle is normal size. Global left ventricular systolic function is severely reduced. EF range is estimated at 25 % -30 %. Left ventricular wall thickness is normal. Diffuse global hypokinesis. Right Ventricle: The right ventricle appears normal in size. Normal right ventricular systolic function. A pacing wire is present. Left Atrium: The left atrium is severely enlarged. Left Atrium Appendage: The left atrial appendage is normal. The left atrial appendage is monolobular. Normal left atrial appendage, no thrombus seen. ROBB measutments are below IAS: No atrial septal defect. No spontaneous transseptal color flow. Right Atrium: The right atrium appears enlarged. Mitral Valve: The mitral valve is normal in mobility and thickness. Mild to moderate mitral regurgitation. Aortic Valve: The aortic valve is normal. Moderate aortic valve regurgitation. The aortic valve is trileaflet. The regurgitant jet is directed centrally. Tricuspid Valve: Normal tricuspid valve. Trivial tricuspid regurgitation. Pulmonic Valve: Pulmonic valve is poorly visualized. Trivial pulmonary regurgitation. Aorta: The aortic root is normal in size. Pericardium: There is a minimal pericardial effusion. The Attending Physician was present and personally reviewed the examination with the fellow Procedure Staff Reading Group: [facility] Referring Physician: RUDY KING Cone Machine Operator: DORIAN Walker Ordering Physician: Hay William MD us Hay William MD CV ECHO PROCEDURES Final Res ult * CBC (12/01/2024 10:35 AM EDT) Auto WBC 6.95 4.00 - 10.60 10*3/uL 12/01/2024 10:49 AM EDT [facility] ([facility]) RBC 4.44 4.20 - 5.70 10*6/uL 12/01/2024 10:49 AM EDT [facility] ([facility]) Hemoglobin 14.0 13.0 - 17.0 g/dL 12/01/2024 10:49 AM EDT [facility] ([facility]) Hematocrit 40.9 39.0 - 50.0 % 12/01/2024 10:49 AM EDT [facility] ([facility]) MCV 92.1 82.0 - 98.0 fL 12/01/2024 10:49 AM EDT [facility] ([facility]) MCH 31.5 27.0 - 33.0 pg 12/01/2024 10:49 AM EDT [facility] ([facility]) MCHC 34.2 32.0 - 35.0 g/dL 12/01/2024 10:49 AM EDT [facility] ([facility]) RDW 13.9 11.5 - 15.0 % 12/01/2024 10:49 AM EDT [facility] ([facility]) Platelets 167 150 - 400 10*3/uL 12/01/2024 10:49 AM EDT [facility] ([facility]) Blood Venous blood specimen / Unknown Venipuncture / Unknown 12/01/2024 10:35 AM EDT 12/01/2024 10:35 AM EDT us Hay William MD LAB BLOOD ORDERABLES Final R esult [facility]) [address] [place] [address] * (ABNORMAL) Basic metabolic panel (12/01/2024 10:35 AM ED) Sodium 139 136 - 145 mmol/L 12/01/2024 11:16 AM [facility] ([facility]) Potassium 4.5 3.5 - 5.1 mmol/L 12/01/2024 11:16 AM [facility] ([facility]) Chloride 101 98 - 107 mmol/L 12/01/2024 11:16 AM [facility] ([facility]) CO2 24 21 - 31 mmol/L 12/01/2024 11:16 AM [facility] ([facility]) BUN 16 7 - 25 mg/dL 12/01/2024 11:16 AM [facility] ([facility]) Creatinine 0.93 0.70 - 1.30 mg/dL 12/01/2024 11:16 AM [facility] ([facility]) Glucose 108(H) 70 - 100 mg/dL 12/01/2024 11:16 AM [facility] ([facility]) Calcium 8.8 8.6 - 10.3 mg/dL 12/01/2024 11:16 AM [facility] ([facility]) Anion Gap 19 7 - 20 mmol/L 12/01/2024 11:16 AM [facility] ([facility]) eGFR 88.9 >60.0 mL/min/1. 73m*2 12/01/2024 11:16 AM [facility] ([facility]) Comment:The [facility] s estimated glomerular filtration rate (eGFR) will no longer include consideration of race in its calculation. The [employer] s eGFR Task Force developed new recommendations for [...] disproportionately affect any one group of individuals. BUN/Creatinine Ratio 17.2 11/16 11:16 AM [facility] ([facility]) Blood Venous blood specimen / Unknown Venipuncture / Unknown 12/01/2024 10:35 AM EDT 12/01/2024 10:35 AM EDT us Hay William MD LAB BLOOD ORDERABLES Final R esult [facility] ([facility]) [address] [place] [address] * CARDIAC DEVICE CHECK - IN CLINIC - ICD DUAL CHAMBER W/ PROG (11/16/2024 12:11 PM EDT) BSA 2.05 m2 GE PACS CARDIO Anatomical Region Laterality Modality Other Narrative 11/28/2024 9:45 PM EDT By using the attestations below, the signing clinician agrees that I have read and verify that the documentation has been personally reviewed by me and ensure that the documentation accurately reflects the encounter. Routine EP device follow up as per schedule. Please see attached note us Bobo Raymond MD CV IMPLANTABLE CARDIAC DEVICE CO OCEDURES Final Result from Last 3 Months Insurance [facility] [address] [phone] AARP MEDICARE ADVANTAGE Advance Directives * Full Code (Latest Code Status on File) Date Activated Date Inactivated Comments 07/02/2022 11:10 PM 07/04/2022 3:19 PM Care Teams Planning Supervisor Relationship Specialty Start Date End Date Rudy King MD [address] [place] [address] [facility] - General 07/03/22
--- OUTSIDE RECORDS SUMMARY | 2025-01-30 13:24 | XMS_ITS | Encounter Summary ---
Author Organization [facility] Address [address] [place] [address] Care Team Providers Care Filament Maker Name Role Phone Arturo PIMENTEL MD, Dakota Franco Primary Care Provider [phone] Source Comments In the event this information is protected by the Federal Confidentiality of Alcohol and Drug AbusePatient Records regulations: The Federal rules restrict any use of the information to criminally investigate or prosecute any alcohol or drug abuse patient.[facility] Encounter Details Date Type Department Care Team (Late st Contact Info) Description 03/02/2012 Abstract Thoracic Clinic [address] [id number] Rosi Clinton MD, PhD [address] [facility] [address] [place] [address] Social History Tobacco Use Types Packs/Day Years Used Date Smoking Tobacco: Never Assessed Sex and Gender Information Value Date Recorded Sex Assigned at Not on file Legal Sex Male 10:16 AM EST Gender Identity Not on file Sexual Orientation Not on file documented as of this encounter Plan of Treatment Not on file documented as of this encounter Visit Diagnoses Not on filedocumented in this encounter Care Teams Filament Maker Relationship Specialty Start Date End Date Dakota Morris II, MD PCP - General Internal Medicine 02/18/12 documented as of this encounter
--- OUTSIDE RECORDS SUMMARY | 2025-01-30 13:24 | XMS_ITS | Clinical Summary ---
Author Organization [facility] Address [facility] [place] [address] Care Team Providers Care Fairing Man Name Role Phone Arturo PIMENTEL MD, Dakota Franco Primary Care Provider [phone] Allergies No known active allergies Medications simvastatin 40 mg tablet Take 40 mg by mouth once daily. Active fluticasone 50 mcg/actuation nasal spray Use 1 Stuart in each nostril once daily. Active lisinopril-hydr ochlorothiazide 20-12.5 mg per tablet Take 1 tablet by mouth once daily. Active fluticasone-georges meterol (ADVAIR DISKUS) 250-50 mcg/dose DsDv Inhale 1 Puff as instructed twice daily. Rinse and gargle mouth with water after each use. 1 Inhaler 3 2 Active albuterol 90 mcg/actuation Aero Inhale 1-2 Puffs as instructed four times daily as needed (for wheezing and shortness of breath). 1 Inhaler 3 2 Active Active Problems Problem Noted Date Diagnosed Date Asthma 07/29/2012 Immunizations Immunization Administration Dates Next Due influenza vaccine, unspecified formulation 07/29 Family History Medical History Relation Comments Cancer Brother prostate None Brother has 6 brothers Emphysema Father Cerebral Embolism Mother Diabetes Mother Hypertension Mother None Sister Relation Status Comments Brother Father Mother Sister Social History Tobacco Use Types Packs/Day Years Used Date Smoking Tobacco: Former Cigarettes 0.5 3 0 03/03/1974 - 03/03/1977 Smokeless Tobacco: Former Alcohol Use Standard Drinks/Week Comments Yes 14 (1 standard drink = 0.6 oz pu re alcohol) Sex and Gender Information Value Date Recorded Sex Assigned at Not on file Legal Sex Male 10:16 AM EST Gender Identity Not on file Sexual Orientation Not on file Last Filed Vital Signs Vital Sign Reading Time Taken Comments Blood Pressure 128/85 07/29/2012 8:56 AM EST Pulse 86 07/29/2012 8:56 AM EST Temperature 36.3 C (97.3 F) 07/29/2012 8:56 AM EST Respiratory Rate 17 07/29/2012 8:56 AM EST Oxygen Saturation 96% 07/29/2012 8:56 AM EST Inhaled Oxygen Concentration - - Weight 90.9 kg (200 lb 6.4 oz) 04/19/2012 1:48 P M EDT Height 169.3 cm (5' 6.65 ) 04/19/2012 1:48 PM ED T Body Mass Index 31.71 04/19/2012 1:48 PM EDT Plan of Treatment Health Maintenance Due Date Last Done Comments Abdominal Aortic Aneurysm Screening 1955 Anxiety Screening 09/19/1973 Depression Screening 09/19/1973 Hepatitis C Screening 09/19/1973 DTaP,Tdap,Td Vaccine (1 - Tdap) 09/19/1974 Lipid Screening 09/19/1990 CT Colonography 09/19/2000 Cologuard (FIT-DNA) 09/19/2000 Colonoscopy 09/19/2000 Colorectal Cancer Screening 09/19/2000 Fecal Occult Blood 09/19/2000 Sigmoidoscopy 09/19/2000 Pneumococcal Vaccine: 50+ (1 of 1 - PCV) 09/19/2005 Shingrix Vaccine (1 of 2) 09/19/2005 Diabetes Screening 03/23/2015 03/23/2012 Covid-19 Vaccine ( - season) 2024 Advance Directive Discussion 07/19/2024 Influenza Vaccine (#1) 2025 07/29/2012 RSV Vaccine (1 - 1-dose 75+ series) 09/19/2030 Procedures Procedure Name Priority Date/Time Associated Diagnosis Comments BASIC METABOLIC PANEL STAT 03/23/2012 9:22 AM EDT Pre-op testing from Last 3 Months or Most Recently Relevant to Health Maintenance Results * (ABNORMAL) BASIC METABOLIC PNL (03/23/2012 9:22 AM EDT) Glucose 116(H) 65 - 100 mg/dL [facility] BUN 18 10 - 25 mg/dL [facility] Creatinine 1.01 0.70 - 1.40 mg/dL [facility] Sodium 140 135 - 146 mmol/L [facility] Potassium 3.8 3.5 - 5.0 mmol/L [facility] Chloride 99 98 - 110 mmol/L [facility] CO2 27 23 - 32 mmol/L [facility] Anion Gap 14 0 - 15 mmol/L [facility] Calcium 10.1 8.5 - 10.5 mg/dL [facility] eGFR- >60 [facility] eGFR-All Other Races >60 . [facility] Comment: eGFR (Estimated GFR) Units of measure: mL/min/1.73 meters squared eGFR is derived from the reexpressed MDRD Study equation using the following parameters: serum creatinine, age, gender and race. The creatinine assay has been calibrated to be traceable to IDMS. An eGFR <60 mL/min/1.73m2 for >3 months is consistent with chronic kidney disease. Refer to KDOQI guidelines for clinical interpretation. Blood specimen (specimen) BLOOD SPECIMEN / Unknown 03/23/2012 9:22 AM EDT 03/23/2012 9:24 AM EDT Joaquín Ferrell MD LABORATORY Final Result [facility] [address] [place] [address] from Last 3 Months or Most Recently Relevant to Health Maintenance Insurance [facility] [place] [employer] PPO Care Teams Fairing Man Relationship Specialty Start Date End Date Dakota Morris II, MD PCP - General Internal Medicine 02/18/12
--- OUTSIDE RECORDS SUMMARY | 2025-01-30 13:24 | XMS_ITS | Encounter Summary ---
Author Organization [facility] Address [address] [place] [address] Care Team Providers Care Coal Pulverizer Operator Name Role Phone Rudy Guerra MD Primary Care Provider [phone] Encounter Details Date Type Department Care Team (Late st Contact Info) Description 11/05/2024 Orders Only [facility] [address] [place] [address] Bobo Raymond MD [address] [place] [address] Social History Tobacco Use Types Packs/Day Years [...] Description 02/06/2025 11:00 AM EDT Hospital Encounter [facility] Vascular Lab [address] [place] [address] Hay William MD [address] [facility] [address] [place] [address] Paroxysmal atrial fibrillation (CMS/HCC) 02/06/2025 11:00 AM EDT - 02/06/2025 1:00 PM EDT Surgery [facility] Vascular Lab [address] [place] [address] Hay William MD [address] [facility] [address] [place] [id number] Left atrial appendage closure (transvenous) [56286 (CPT )] documented as of this encounter Procedures Procedure Name Priority Date/Time Associated Diagnosis Comments CARDIAC DEVICE CHECK - REMOTE - ICD Routine 11/05/2024 12:00 AM EDT documented in this encounter Results * Cardiac device check - Remote ICD (11/05/2024 12:00 AM EDT) Anatomical Region Laterality Modality Other 11/05/2024 us Bobo Raymond MD CV IMPLANTABLE CARDIAC DEVICE CA OCEDURES Final Result documented in this encounter Visit Diagnoses Not on filedocumented in this encounter Care Teams Coal Pulverizer Operator Relationship Specialty Start Date End Date Rudy Guerra MD [address] [place] [address] PCP - General 07/03/22 documented as of this encounter
[2025-01-30 13:44] LABS: Anion Gap 16.6; Blood Urea Nitrogen 13.0 mg/dL (7.0-18.0); Calcium 9.2 mg/dL (8.5-10.1); Carbon Dioxide 24.7 mmol/L (21.0-32.0); Chloride 101 mmol/L (98-107); Estimated GFR (African America >60 (>=60 mL/min/1.73m^2); Estimated GFR (Non-African Ame >60 (>=60 mL/min/1.73m^2); Glucose 90 mg/dL (74-106); Potassium 3.3 mmol/L (3.5-5.1); Sodium 139 mmol/L (136-145)
[2025-01-30 14:12] LABS: Hematocrit 41.4 % (42.0-54.0); Hemoglobin 14.3 g/dL (14.0-18.0); Immature Granulocytes Abs Auto 0.01 10^3/uL (0.00-0.03); Immature Granulocytes Pct Auto 0.2 % (0.0-0.5); Lymphocytes Absolute Auto 2.2 10^3/uL (1.2-3.8); Mean Corpuscular HGB Conc 34.5 g/dL (29.9-35.2); Mean Corpuscular Hemoglobin 31.7 pg (25.9-34.0); Mean Corpuscular Volume 91.8 fL (80.0-94.0); Platelet Count 200 10^3/uL (150-450); Red Blood Count 4.51 10^6/uL (4.70-6.10); White Blood Count 5.7 10^3/uL (4.0-11.0)
== END 2025-01-30 13:20 | disposition home or self-care (01) ==
LOC: LAB 13:21
PROVIDERS: PCP Family Medicine; Visit Provider Nurse Practitioner Family
DX: I48.0 Paroxysmal atrial fibrillation (principal)
CPT/HCPCS: 36415; 80048; 85025

== ENCOUNTER 2025-04-18 23:05 | Emergency (ER) | payer MEDICARE, SELFPAY ==
--- OUTSIDE RECORDS SUMMARY | 2025-04-03 10:10 | XMS_ITS ---
Author Name Auto Generated Organization OHIP Support Name Relationship Address Phone LILY, SCOOTER Next of Kin Unknown + LILY, SCOOTER Next of Kin Unknown + LILY, SCOOTER Next of Kin Unknown + LILY, SCOOTER Next of Kin Unknown + LILY, SCOOTER Next of Kin Unknown + LILY, SCOOTER Next of Kin Unknown + LILY, SCOOTER Next of Kin Unknown + LILY, SCOOTER Next of Kin Unknown + LILY, SCOOTER Next of Kin Unknown + LILY, CSOOTER Next of Kin Unknown + LILY, PEG Next of Kin Unknown + LILY, SCOOTER Next of Kin Unknown + LILY, PEG Next of Kin Unknown + LILY, SCOOTER Next of Kin Unknown + LILY, SCOOTER Next of Kin Unknown + LILY, SCOOTER Next of Kin Unknown + LILY, SCOOTER Next of Kin Unknown + LILY, SCOOTER Next of Kin Unknown + LILY, SCOOTER Next of Kin Unknown + LILY, SCOOTER Next of Kin Unknown + LILY, SCOOTER Next of Kin Unknown + LILY, SCOOTER Next of Kin Unknown + LILY, SCOOTER Next of Kin Unknown + LILY, SCOOTER Next of Kin Unknown + LILY, SCOOTER Next of Kin Unknown + LILY, SCOOTER Next of Kin Unknown + LILY, SCOOTER Next of Kin Unknown + LILY, SCOOTER Next of Kin Unknown + LILY, SCOOTER Next of Kin Unknown + LILY, SCOOTER Next of Kin Unknown + LILY, SCOOTER Next of Kin Unknown + Care Team Providers Care Spanish Translator Name Role Phone BOBO RAYMOND Referring Unavailable ROCÍO, BEBA Referring Unavailable ARMINCHUCK Referring Unavailable MOUKARBEL, BORIS Attending Unavailable GABRIEL, BOBO Referring Unavailable GABRIEL, BOBO Referring Unavailable MOUKARBEL, BORIS Admitting Unavailable MOUKARBEL, BORIS Attending Unavailable MOUKARBEL, BORIS Attending Unavailable GABRIEL, BOBO Referring Unavailable MOUKARBEL, BORIS Attending Unavailable ARMIN, CHUCK Attending Unavailable GABRIEL, BOBO Referring Unavailable GABRIEL, BOBO Referring Unavailable GABRIEL, BOBO Referring Unavailable GABRIEL, BOBO Referring Unavailable GABRIEL, BOBO Referring Unavailable GABRIEL, BOBO Referring Unavailable GABRIEL, BOBO Referring Unavailable GABRIEL, BOBO Referring Unavailable GABRIEL, BOBO Referring Unavailable MOUKARBEL, BORIS Referring Unavailable ROCÍO, BEBA Referring Unavailable GABRIEL, BOBO Referring Unavailable GABRIEL, BOBO Referring Unavailable ARMINCHUCK Referring Unavailable ARMIN, CHUCK Referring Unavailable ROCÍO, BEBA Referring Unavailable GABRIEL, BOBO Referring Unavailable GABRIEL, BOBO Referring Unavailable NADERER, RUDY Attending Unavailable MARIAH LANGE Attending Unavailable PROBLEMS DATE TYPE CONDITION / CODE ATTENDING STATUS [facility] 04/03/2025 Admitting Diagnosis Follow-up / [id number]() CHUCK GUTIERREZ Active [facility] 04/03/2025 Admitting Diagnosis Congestive Heart Failure / 127() CHUCK GUTIERREZ Active [facility] 04/03/2025 Admitting Diagnosis Hypertension / [id number]() CHUCK GUTIERREZ [facility] 04/03/2025 Admitting Diagnosis Coronary Artery Disease / 187() ARMIN CHUCK [facility] 04/03/2025 Admitting Diagnosis Cardiomyopathy / 104() CHUCK GUTIERREZ [facility] 04/03/2025 Admitting Diagnosis Hyperlipidemia / 182() ARMIN [facility] 04/03/2025 Admitting Diagnosis Atrial Fibrillation / 80() CHUCK GUTIERREZ [facility] 08/31/2022 Admitting Diagnosis Prediabetes / R73.03(ICD-10) NA [facility] 03/26/2025 Admitting Diagnosis Presence of other cardiac implants and grafts / Z95.818(ICD-10) [facility] 02/06/2025 Admitting Diagnosis Paroxysmal atrial fibrillation / I48.0(ICD-10) JUDY [facility] 11/07/2022 Admitting Diagnosis Chronic systolic (congestive) heart failure / I50.22(ICD-10) JUDY [facility] 09/15/2022 Admitting Diagnosis Presence of automatic (implantable) cardiac defibrillator / Z95.810(ICD-10) JUDY [facility] 09/01/2022 Admitting Diagnosis Other cardiomyopathies / I42.8(ICD-10) JUDY [facility] 07/06/2022 Admitting Diagnosis Atherosclerotic heart disease of [place] coronary artery without angina pectoris / I25.10(ICD-10) JUDY [facility] 07/03/2022 Admitting Diagnosis Essential (primary) hypertension / I10(ICD-10) JUDY [facility] 11/13/2024 Admitting Diagnosis Hemorrhage, not elsewhere classified / R58(ICD-10) JUDY [facility] 11/07/2024 Admitting Diagnosis Encounter for adjustment and management of automatic implantable cardiac defibrillator / Z45.02(ICD-10) NA Active [facility] 05/03/2024 Admitting Diagnosis Encounter for preprocedural cardiovascular examination / Z01.810(ICD-10) NA Active [facility] 04/25/2024 Admitting Diagnosis Cardiomyopathy, unspecified / I42.9(ICD-10) NA Active [facility] PROCEDURES No Procedure Records Found RESULTS PROGRESS Observed: 04/03/2025 10:20 AM Status: COMPLETED Source: [facility] Cardiovascular Medicine [facility] SUBJECTIVE Chief Complaint Patient presents with Follow-up 45 days LAAO with CTA Patient states he is feeling well, no cardiac complaints. Congestive Heart Failure Hypertension Coronary Artery Disease Cardiomyopathy Nonischemic Hyperlipidemia Atrial Fibrillation Kristy Doherty is a 69 y.o. male here for follow-up. PMHx: a.fib s/p Watchman 02/06/25, HFrEF, HTN, syncope, CAD (mild per 2021 cath) HPI 04/03/25 He has been feeling well since last seen. Denies c/o CP, dyspnea, orthopnea, PND, LE edema, dizziness/LH, palpitations, syncope. Denies any bleeding issues. He notes a couple weeks ago he developed a pocket of swelling in his right elbow - denies any injuries or pain unless he applies pressure to it. Last HPI per Dr. Kim: Kristy is seen in follow up. He is a 69-year-old man with systolic heart failure. He has prior history of hypertension. In June 2022 he was admitted to the [facility] with syncope and echocardiogram showed new onset systolic heart failure with ejection fraction of 25%. Carotid ultrasound showed no significant stenosis. CT head was negative for intracranial pathology. He ended up being transferred to [facility] and underwent cardiac catheterization that showed [...] rhythm strips. He then underwent a dual-chamber [employer] ICD placement on 09/04/2022. He was evaluated in cardiology clinic on 05/11/[address] Bobo Raymond and due to device discovered atrial fibrillation he was started on Eliquis for anticoagulation. He is seen in follow-up. At last visit I increased Entresto dosage for further optimization of GDMT. Follow-up BMP in July 2024 showed stable renal function. Due to significant bleeding on Eliquis in both arms, he underwent watchman left atrial appendage occlusion procedure on 02/06/2025. He did well with the procedure. since the procedure he has been maintained on aspirin and clopidogrel and has been off of the Eliquis. Since then he has not had no bleeding in his arms. He does have residual bruising. Otherwise he has been doing well without any significant chest pain, shortness of breath or palpitations. Problem List[1] Medical History[2] Family History[3] Social History[4] Allergies[5] OBJECTIVE Visit Vitals BP 96/72 (BP Location: Left arm, Patient Position: Sitting) Pulse 88 Ht 1.727 m (5' 8 ) Wt 84.8 kg (187 lb) SpO2 96% BMI 28.43 kg/m??? Smoking Status Former BSA 2.02 m??? Medications: Current Medications[6] Physical Exam Constitutional: Appearance: Normal appearance. HENT: Head: Normocephalic and atraumatic. Right Ear: External ear normal. Left Ear: External ear normal. Eyes: Extraocular Movements: Extraocular movements intact. Pupils: Pupils are equal, round, and reactive to light. Neck: Vascular: No carotid bruit. Cardiovascular: Rate and Rhythm: Normal rate and regular rhythm. Pulses: Normal pulses. Heart sounds: Normal heart sounds. Pulmonary: Effort: Pulmonary effort is normal. Breath sounds: Normal breath sounds. Abdominal: General: Bowel sounds are normal. Palpations: Abdomen is soft. Musculoskeletal: General: Normal range of motion. Cervical back: Neck supple. Right lower leg: No edema. Left lower leg: No edema. Skin: General: Skin is warm and dry. Neurological: General: No focal deficit present. Mental Status: He is alert and oriented to person, place, and time. Psychiatric: Mood and Affect: Mood normal. Behavior: Behavior normal. Thought Content: Thought content normal. Judgment: Judgment normal. Labs: Lab Results Component Value Date BNP 511 (H) 07/03/2022 Lab on 03/26/2025 Component Date Value Sodium 03/26/2025 132 (L) Potassium 03/26/2025 4.1 Chloride 03/26/2025 95 (L) CO2 03/26/2025 28 BUN 03/26/2025 15 Creatinine 03/26/2025 0.95 Glucose 03/26/2025 91 Calcium 03/26/2025 10.4 (H) Anion Gap 03/26/2025 13 eGFR 03/26/2025 86.6 BUN/Creatinine Ratio 03/26/2025 15.8 Auto WBC 03/26/2025 7.48 RBC 03/26/2025 4.34 Hemoglobin 03/26/2025 13.9 Hematocrit 03/26/2025 40.2 MCV 03/26/2025 92.6 MCH 03/26/2025 32.0 MCHC 03/26/2025 34.6 RDW 03/26/2025 15.2 (H) Platelets 03/26/2025 211 Creatinine 03/26/2025 0.95 eGFR 03/26/2025 86.6 Ancillary Procedure on 02/20/2025 Component Date Value BSA 02/28/2025 2.03 Admission on 02/06/2025, Discharged on 02/07/2025 Component Date Value ABO Grouping 02/06/2025 A Rh Type 02/06/2025 POS Ab Scrn 02/06/2025 NEG Ventricular Rate 02/06/2025 73 Atrial Rate 02/06/2025 73 IL Interval 02/06/2025 198 QRS DURATION 02/06/2025 116 QT Interval 02/06/2025 422 QTC CALCULATION(BAZETT) 02/06/2025 464 P Moran 02/06/2025 43 R-Moran 02/06/2025 -4 T Wave Moran 02/06/2025 125 Activated Clotting Time 02/06/2025 336 (H) Activated Clotting Time 02/06/2025 316 (H) Sodium 02/07/2025 136 Potassium 02/07/2025 3.0 (L) Chloride 02/07/2025 102 CO2 02/07/2025 25 BUN 02/07/2025 12 Creatinine 02/07/2025 0.81 Glucose 02/07/2025 96 Calcium 02/07/2025 7.5 (L) Anion Gap 02/07/2025 12 eGFR 02/07/2025 95.4 BUN/Creatinine Ratio 02/07/2025 14.8 Auto WBC 02/07/2025 6.13 RBC 02/07/2025 3.63 (L) Hemoglobin 02/07/2025 11.6 (L) Hematocrit 02/07/2025 33.9 (L) MCV 02/07/2025 93.4 MCH 02/07/2025 32.0 MCHC 02/07/2025 34.2 RDW 02/07/2025 14.3 Platelets 02/07/2025 154 Potassium 02/07/2025 3.4 (L) Ancillary Procedure on 02/05/2025 Component Date Value BSA 02/07/2025 2.02 Ancillary Procedure on 01/22/2025 Component Date Value BSA 02/15/2025 2.02 Hospital Outpatient Visit on 12/01/2024 Component Date Value Auto WBC 12/01/2024 6.95 RBC 12/01/2024 4.44 Hemoglobin 12/01/2024 14.0 Hematocrit 12/01/2024 40.9 MCV 12/01/2024 92.1 MCH 12/01/2024 31.5 MCHC 12/01/2024 34.2 RDW 12/01/2024 13.9 Platelets 12/01/2024 167 Sodium 12/01/2024 139 Potassium 12/01/2024 4.5 Chloride 12/01/2024 101 CO2 12/01/2024 24 BUN 12/01/2024 16 Creatinine 12/01/2024 0.93 Glucose 12/01/2024 108 (H) Calcium 12/01/2024 8.8 Anion Gap 12/01/2024 19 eGFR 12/01/2024 88.9 BUN/Creatinine Ratio 12/01/2024 17.2 Ancillary Procedure on 11/07/2024 Component Date Value BSA 11/16/2024 2.05 Testing/Procedures: Encounter Date: 02/06/25 Electrocardiogram, 12-lead Result Value Ventricular Rate 73 Atrial Rate 73 IL Interval 198 QRS DURATION 116 QT Interval 422 QTC CALCULATION(BAZETT) 464 P Moran 43 R-Moran -4 T Wave Moran 125 Impression Sinus rhythm with occasional Premature ventricular complexes Low voltage QRS Possible Anterolateral infarct , age undetermined Abnormal ECG Confirmed by Jumana Bryant ([id number]) on 02/06/2025 10:33:19 PM Chest CTA 03/26/2025 IMPRESSION: Left atrial appendage closure device in place with no complications appreciated. Normal left atrial size and configuration and normal appearance of the draining bilateral pulmonary veins. Diffuse idiopathic skeletal hyperostosis. Vascular calcifications and left subclavian pacemaker in place. right renal cysts. Limited echocardiogram 02/07/2025: Left Ventricle: The left ventricle is normal size. Global left ventricular systolic function is severely reduced. EF range is estimated at 25 % -30 %. Left ventricular wall thickness is increased. Diffuse global hypokinesis. Right Ventricle: The right ventricle is normal in size. Normal right ventricular systolic function. Left Atrium: The left atrium is normal in size. Aortic Valve: Mild aortic valve regurgitation. Overall Conclusions: Due to suboptimal imaging Lumason contrast was administered for opacification and better delineation of endocardial borders. Well seated 35mm Watchman FLX PRO. Left atrial appendage occlusion procedure 02/06/2025: 1. Successful left atrial appendage closure using a 35 mm Watchman FLX Pro device performed under fluoroscopic and intracardiac echocardiography guidance. ECG 02/06/2025: Sinus rhythm with occasional Premature ventricular complexes Low voltage QRS Possible Anterolateral infarct, age undetermined Abnormal ECG Device check 04/25/2024: Normal function, 6 mode switches consistent with atrial fibrillation. Echocardiogram 12/14/2023: CONCLUSION: 1. The left ventricle exhibits mild eccentric hypertrophy with mildly to moderately reduced systolic function. Estimated ejection fraction is 40%. 2. Normal right ventricular size and systolic function. 3. Mild mitral and tricuspid regurgitation. 4. Mild to moderate aortic regurgitation. 5. Normal right-sided pressures. Echocardiogram 06/01/2023: CONCLUSION: 1. Ventricular systolic function is difficult to assess but appears moderately reduced. LVEF is estimated at 30 to 35%. 2. Normal right ventricular size and systolic function. 3. Mild mitral regurgitation, otherwise no significant valvular dysfunction. 4. Normal right-sided pressures. 5. No pericardial effusion. Device check 05/11/2023: Normal device function, 11 mode switches consistent with atrial fibrillation longest 4-hour and 51 minutes. Echocardiogram 10/28/2022: Ventricular systolic function is moderately to severely reduced with global hypokinesis, LVEF is 25 to 30%. The right ventricle is normal in size with normal systolic function. Mild mitral tricuspid and aortic regurgitation. Mildly elevated right-sided pressures. Echocardiogram 08/18/2022: LV systolic function is severely reduced, EF 25 to 30%, normal right ventricular size and systolic function, moderate left atrial dilatation, mild aortic mitral and tricuspid regurgitation. Mildly elevated right-sided pressures. RVSP is 37 mmHg. No pericardial effusion. Echocardiogram 07/02/2022: Global left ventricular systolic function is severely reduced; visually estimated ejection fraction is 25 to 30%. Global hypokinesis. Mild left ventricular hypertrophy. Mild diastolic dysfunction. Biatrial enlargement. The right ventricle is normal in size and systolic function. Moderate mitral regurgitation. Mild aortic regurgitation. Cardiovascular Laboratory Report (07/03/2022) FINAL IMPRESSIONS: Mild coronary artery disease Moderately reduced global left ventricular systolic function by noninvasive imaging ECG 08/24/2022 showed sinus rhythm with frequent PVCs. His QRS complex 124 ms. ASSESSMENT/PLAN: Diagnoses and all orders for this visit: Paroxysmal atrial fibrillation (CMS/HCC) Presence of Watchman left atrial appendage closure device Chronic systolic heart failure (CMS/HCC) Coronary artery disease involving [place] coronary artery of [place] heart without angina pectoris ICD (implantable cardioverter-defibrillator) in place Nonischemic cardiomyopathy (CMS/HCC) Benign hypertensive heart disease with heart failure (CMS/HCC) #Paroxysmal atrial fibrillation, status post watchman left atrial appendage occlusion procedure on 02/06/2025 -His 45-day follow-up Chest CTA was completed 03/26/25 - this showed no evidence of contrast within the appendage along with no thrombus -reviewed results with pt. -He denies any bleeding issues -Will continue ASA/plavix until he is 6 months s/p implant which would be 08/09/2025, at which time we will plan to stop plavix and continue ASA 81mg daily lifelong. -Continue endocarditis prophylaxis until 6 months s/p implant. He has his Rx for amoxicillin at home. -RRR on exam today with intermittent palpitations - he is asymptomatic - continue Toprol #HFrEF #NICM #s/p ICD 08/2022 -NYHA II -He appears compensated/euvolemic on exam -GDMT: continue entresto, aldactone, farxiga, Toprol -Continue monitoring daily weights and notify cardiology for any significant weight gain or increased SOB or leg swelling. #Right renal cyst -Incidental finding on recent chest CTA - Pt and PCP made aware - pt to follow-up with PCP #HTN -Low side today, atypical for him. He will continue to monitor at home and will let us know if he has consistently low readings at home. Follow up in about 4 months (around 08/03/2025). Chuck Gutierrez CNP [facility] [1] Patient Active Problem List Diagnosis New onset of congestive heart failure (CMS/HCC) Asthma History of malignant neoplasm of prostate Hypomagnesemia Hypertension Syncope and collapse Coronary artery disease involving [place] coronary artery of [place] heart without angina pectoris Chronic systolic heart failure (CMS/HCC) Depressive disorder Dyslipidemia Prediabetes Seasonal allergic rhinitis Steatosis of liver Vitamin D deficiency Nonischemic cardiomyopathy (CMS/HCC) ICD (implantable cardioverter-defibrillator) in place Benign essential hypertension Chronic pansinusitis Hyperlipidemia Malignant tumor of prostate (CMS/HCC) Nasal polyp Mild persistent asthma without complication Paroxysmal atrial fibrillation (CMS/HCC) PAF (paroxysmal atrial fibrillation) (CMS/HCC) [2] Past Medical History: Diagnosis Date Asthma 07/29/2012 CHF (congestive heart failure) (CMS/HCC) Coronary artery disease History of malignant neoplasm of prostate 07/03/2022 Hypertension 07/03/2022 [3] Family History Problem Relation Name Age of Onset Other (pacemaker) Mother Stroke Mother Emphysema Father [4] Social History Tobacco Use Smoking status: Former Types: Cigarettes Smokeless tobacco: Never Substance Use Topics Alcohol use: Yes Alcohol/week: 14.0 standard drinks of alcohol Types: 14 Cans of beer per week Comment: occasional Drug use: Never [5] Allergies Allergen Reactions Octacosanol Unknown Other Reaction(s): Unknown [6] Current Outpatient Medications: albuterol 90 mcg/actuation inhaler, Inhale 2 puffs every 4 (four) hours if needed for wheezing., Disp: , Rfl: allopurinol (Zyloprim) 300 mg tablet, Take 300 mg by mouth in the morning., Disp: , Rfl: amoxicillin (Amoxil) 500 mg tablet, Take 4 tablets (2,000 mg) by mouth 1 (one) time if needed (30-60 minute prior to dental procedures) for up to 20 doses., Disp: 20 tablet, Rfl: 3 aspirin 81 mg chewable tablet, Chew 1 tablet (81 mg) with breakfast., Disp: 90 tablet, Rfl: 3 atorvastatin (Lipitor) 40 mg tablet, Take 1 tablet (40 mg) by mouth at bedtime., Disp: 90 tablet, Rfl: 3 clopidogrel (Plavix) 75 mg tablet, Take 1 tablet (75 mg) by mouth in the morning., Disp: 90 tablet, Rfl: 3dapagliflozin propanediol (Farxiga) 10 mg, Take 1 tablet (10 mg) by mouth once daily as directed., Disp: 90 tablet, Rfl: 3 Dupixent Syringe 300 mg/2 mL syringe injection, Inject 300 mg under the skin every 14 (fourteen) days., Disp: , Rfl: fluticasone (Flonase) 50 mcg/actuation nasal spray, Administer 2 sprays into each nostril in the morning. Shake gently. Before first use, prime pump. After use, clean tip and replace cap., Disp: , Rfl: fluticasone propion-salmeteroL (Advair Diskus) 500-50 mcg/dose diskus inhaler, Inhale 1 puff two times daily., Disp: , Rfl: metoprolol succinate XL (Toprol-XL) 50 mg 24 hr tablet, Take 1 tablet (50 mg) by mouth once daily as directed. Do not crush or chew., Disp: 90 tablet, Rfl: 3 sacubitril-valsartan (Entresto) 97-103 mg tablet, Take 1 tablet by mouth two times daily., Disp: 180 tablet, Rfl: 3 spironolactone (Aldactone) 25 mg tablet, Take 1 tablet (25 mg) by mouth in the morning., Disp: 90 tablet, Rfl: 3 OFFICE VISIT Observed: 04/03/2025 10:20 AM Status: COMPLETED Source: [facility] [id number] Kristy Doherty 10/1955 M Date Provider Department Center 04/03/2025 CHUCK CORREIA Family History Problem Relation Age of Onset Other Mother Stroke Mother Emphysema Father Family Status - Relation Status Age at Mother Father Level of Service:52593 [place] OFFICE/OUTPATIENT ESTABLISHED MOD MDM 30 MIN Reason for Visit and Comments: Follow-up [819637] - 45 days LAAO with CTA Patient states he is feeling well, no cardiac complaints. Congestive Heart Failure [127] Hypertension [832541] Coronary Artery Disease [187] Cardiomyopathy [104] - Nonischemic Hyperlipidemia [182] Atrial Fibrillation [80] BASIC METABOLIC PANEL Collected: 2024 2:43 PM Status: UNK Source: [facility] TYPE CODE TESTS RESULT OUT OF RANGE REFERENCE UNITS LAB [id number] SODIUM (MMOL/L) IN SER/PLAS 132 Low 136-145 mmol/L LAB [id number] POTASSIUM (MMOL/L) IN SER/PLAS 4.1 3.5-5.1 mmol/L LAB [id number] CHLORIDE (MMOL/L) IN SER/PLAS 95 Low 98-107 mmol/L LAB [id number] CARBON DIOXIDE, TOTAL (MMOL/L) IN SER/PLAS 28 21-31 mmol/L LAB [id number] UREA NITROGEN (MG/DL) IN SER/PLAS 15 7-25 mg/dL LAB [id number] CREATININE (MG/DL) IN SER/PLAS 0.95 0.70-1.30 mg/dL LAB [id number] GLUCOSE (MG/DL) IN SER/PLAS 91 70-100 mg/dL LAB [id number] CALCIUM (MG/DL) IN SER/PLAS 10.4 High 8.6-10.3 mg/dL LAB [id number] ANION GAP IN SER/PLAS 13 7-20 mmol/L LAB [id number] GLOMERULAR FILTRATION RATE ML/MIN/1.73 SQ M.PREDICTED 86.6 >60.0 mL/min/ 1.73m*2 Result Comment: [facility]???s estimated glomerular filtration rate (eGFR) will no [...] disproportionately affect any one group of individuals. LAB [id number] UREA NITROGEN/CREA TININE (MASS RATIO) IN SER/PLAS 15.8 NA Performed By: #### [id number] ### # [facility] ([facility]) [address] [address] [place] [address] CREATININE, SERUM Collected: 2:43 PM Status: UNK Source: [facility] TYPE CODE TESTS RESULT OUT OF RANGE REFERENCE UNITS LAB [id number] CREATININE (MG/DL) IN SER/PLAS 0.95 0.70-1.30 mg/dL LAB [id number] GLOMERULAR FILTRATION RATE ML/MIN/1.73 SQ M.PREDICTED 86.6 >60.0 mL/min/ 1.73m*2 Result Comment: [facility]???s estimated glomerular filtration rate (eGFR) will no [...] one group of individuals. Performed By: #### [id number] ## ## [facility] ([facility]) [address] [place] [address] CBC Collected: 03/26/2025 2:43 PM Status: UN K Source: [facility] TYPE CODE TESTS RESULT OUT OF RANGE REFERENCE UNITS LAB [id number] LEUKOCYTES(10*3/ U L) IN BLOOD BY AUTOMATED COUNT 7.48 4.00-10.60 10*3/uL LAB [id number] ERYTHROCYTES (10*6/UL) IN BLOOD BY AUTOMATED COUNT 4.34 4.20-5.70 10*6/uL LAB [id number] HEMOGLOBIN (G/DL ) IN BLOOD 13.9 13.0-17.0 g/dL LAB [id number] HEMATOCRIT (%) I N BLOOD BY AUTOMATED COUNT 40.2 39.0-50.0 % LAB [id number] ERYTHROCYTE MEAN CORPUSCULAR VOLUME (FL) BY AUTOMATED COUNT 92.6 82.0-98.0 fL LAB [id number] ERYTHROCYTE MEAN CORPUSCULAR HEMOGLOBIN (PG) BY AUTOMATED COUNT 32.0 27.0-33.0 pg LAB [id number] ERYTHROCYTE MEAN CORPUSCULAR HEMOGLOBIN CONCENTRATION (G/DL) BY AUTOMATED 34.6 32.0-35.0 g/dL LAB [id number] ERYTHROCYTE DISTRIBUTION WIDTH (RATIO) BY AUTOMATED COUNT 15.2 High 11.5-15.0 % LAB [id number] PLATELETS (10*3/UL) IN BLOOD AUTOMATED COUNT 211 150-400 10*3/uL Performed By: #### [id number] ## ## [facility] ([facility]) [address] [place] [address] LAB Observed: 03/26/2025 2:40 PM Status: COMPLETED Source: [facility] [id number] Kristy Doherty 10/1955 M Date Provider Department Center 03/26/20255-[facility]PD LAB RESOURCE [facility] OPD [facility] C Family History Problem Relation Age of Onset Other Mother Stroke Mother Emphysema Father Family Status - Relation Status Age at Mother Father CTA CHEST W IV CONTRAST Observed: 2024 2:34 PM Status: UNK Source: [facility] Order Comment: 45-day imagin g - Post-LAAO device - venous & gaited with 3D reconstrution to assess left atrial appendage CTA CHEST W IV CONTRAST 2024 4:31 PM CLINICAL INDICATIONS: Post left atrial appendage occlusive device placement. 3-D reconstruction is requested to assess for any possible complications or leakage of contrast. PROTOCOL: Gated cardiac CTA examination CONTRAST: 100 mL Omnipaque 350 TECHNIQUE: Multidetector CT axial slices of the chest were obtained with IV contrast. Multiplanar reformats were performed and viewed on a separate workstation and reviewed to further define anatomy and possible pathology. 3-D volume rendered images of the left atrium, left atrial appendage and draining pulmonary veins are saved in various projections on PACS All CT scans at this facility use dose modulation, iterative reconstruction, and/or weight based dosing when appropriate to reduce radiation dose to as low as reasonably achievable. COMPARISON: None. FINDINGS: Lower neck: Unremarkable Vessels: Pulmonary arteries are Within normal limits. Minimal atherosclerotic changes in the aorta. and moderate calcification in the coronary arteries. Mediastinum and Ana: Within normal limits. Heart: Normal size. No pericardial effusion. Airways: Within normal limits Lungs: Mild bilateral dependent atelectasis and few linear scars in the left lower lobe. Pleura: Within normal limits. Chest Wall: Within normal limits with left subclavian pacer in place. Upper Abdomen: [Calcifications in the abdominal aorta. Cyst in the anterior cortex of the right kidney. Otherwise, unremarkable. Bones: Diffuse idiopathic skeletal hyperostosis in the lower thoracic spine with fused anterior osteophytes seen 3-D volume rendered images of the left atrium confirmed the presence of watchman device in place with no evidence of contrast within the left atrial appendage or other complications of the device. The left atrium is normal in size and configuration. 2 pulmonary veins are seen on the right side and 2 pulmonary veins are seen on the left side. Incidental note is made of pacer wires within the right heart with significant associated metallic artifacts. Left subclavian pacer device. IMPRESSION: Left atrial appendage closure device in place with no complications appreciated. Normal left atrial size and configuration and normal appearance of the draining bilateral pulmonary veins. Diffuse idiopathic skeletal hyperostosis. Vascular calcifications and left subclavian pacemaker in place. right renal cysts. Electronically signed: Keri Agarwal MD. Not Vldtd ORDERS ONLY Observed: 03/23/2025 12:00 AM Status: COMPLETED Source: [facility] [id number] Kristy Doherty 10/1955 [facility] Provider Department Center 03/23/2025 [id number] [facility] HeartVAS Family History Problem Relation Age of Onset Other Mother Stroke Mother Emphysema Father Family Status - Relation Status Age at Mother Father FOLLOW-UP Observed: 02/26/2025 10:45 AM Status: COMPLETED Source: [facility] [id number] Kristy Doherty 10/1955 [facility] Provider Department Center 02/26/2025 BORIS COONEY [facility] Family History Problem Relation Age of Onset Other Mother Stroke Mother Emphysema Father Family Status - Relation Status Age at Mother Father Level of Service:35925 [place] OFFICE/OUTPATIENT ESTABLISHED MOD MDM 30 MIN PROGRESS Observed: 02/26/2025 10:45 AM Status: COMPLETED Source: [facility] Cardiology - [facility] Subjective Kristy Doherty is a 69 y.o. year old male patient being seen for s/p watchman. Patient states he has been feeling fine. Patient denies cardiac complaints at this time. Patient Active Problem List Diagnosis New onset of congestive heart failure (CMS/HCC) Asthma History of malignant neoplasm of prostate Hypomagnesemia Hypertension Syncope and collapse Coronary artery disease involving [place] coronary artery of [place] heart without angina pectoris Chronic systolic heart failure (CMS/HCC) Depressive disorder Dyslipidemia Prediabetes Seasonal allergic rhinitis Steatosis of liver Vitamin D deficiency Nonischemic cardiomyopathy (CMS/HCC) ICD (implantable cardioverter-defibrillator) in place Benign essential hypertension Chronic pansinusitis Hyperlipidemia Malignant tumor of prostate (CMS/HCC) Nasal polyp Mild persistent asthma without complication Paroxysmal atrial fibrillation (CMS/HCC) PAF (paroxysmal atrial fibrillation) (CMS/HCC) Family History Problem Relation Name Age of Onset Other (pacemaker) Mother Stroke Mother Emphysema Father Social History Tobacco Use Smoking status: Former [...] June 2022 he was admitted to the [facility] with syncope and echocardiogram showed new onset systolic heart failure with ejection fraction of 25%. Carotid ultrasound showed no significant stenosis. CT head was negative for intracranial pathology. He ended up being transferred to [facility] and underwent cardiac catheterization that showed [...] rhythm strips. He then underwent a dual-chamber [employer] ICD placement on 09/04/2022. He was evaluated in cardiology clinic on 05/11/[address] Bobo Raymond and due to device discovered atrial fibrillation he was started on Eliquis for anticoagulation. He is seen in follow-up. At last visit I increased Entresto dosage for further optimization of GDMT. Follow-up BMP in July 2024 showed stable renal function. Due to significant bleeding on Eliquis in both arms, he underwent watchman left atrial appendage occlusion procedure on 02/06/2025. He did well with the procedure. since the procedure he has been maintained on aspirin and clopidogrel and has been off of the Eliquis. Since then he has not had no bleeding in his arms. He does have residual bruising. Otherwise he has been doing well without any significant chest pain, shortness of breath or palpitations. Review of Systems Hematologic/Lymphatic: Bruises/bleeds easily. Musculoskeletal: Positive for arthritis, back pain and myalgias. All other systems reviewed and are negative. Objective Visit Vitals BP 117/74 (BP Location: Left arm, Patient Position: Sitting) Pulse 74 Ht 1.727 m (5' 8 ) Wt 85.7 kg (189 lb) SpO2 95% BMI 28.74 kg/m??? Smoking Status Former BSA 2.03 m??? [...] Skin: General: Skin is warm and dry. Findings: Ecchymosis present. Neurological: General: No focal deficit present. Mental Status: He is alert and oriented to person, place, and time. Psychiatric: Mood and Affect: Mood normal. Behavior: Behavior is cooperative. Judgment: Judgment normal. Allergies Allergies Allergen Reactions Octacosanol Unknown Other Reaction(s): Unknown Medications Current Outpatient Medications: albuterol 90 mcg/actuation inhaler, Inhale 2 puffs every 4 (four) hours if needed for wheezing., Disp: , Rfl: allopurinol (Zyloprim) 300 mg tablet, Take 300 mg by mouth in the morning., Disp: , Rfl: atorvastatin (Lipitor) 40 mg tablet, Take 1 tablet (40 mg) by mouth at bedtime., Disp: 90 tablet, Rfl: 3 dapagliflozin propanediol (Farxiga) 10 mg, Take 1 tablet (10 mg) by mouth once daily as directed., Disp: 90 tablet, Rfl: 3 Dupixent Syringe 300 mg/2 mL syringe injection, Inject 300 mg under the skin every 14 (fourteen) days., Disp: , Rfl: fluticasone (Flonase) 50 mcg/actuation nasal spray, Administer 2 sprays into each nostril in the morning. Shake gently. Before first use, prime pump. After use, clean tip and replace cap., Disp: , Rfl: fluticasone propion-salmeteroL (Advair Diskus) 500-50 mcg/dose diskus inhaler, Inhale 1 puff two times daily., Disp: , Rfl: metoprolol succinate XL (Toprol-XL) 50 mg 24 hr tablet, Take 1 tablet (50 mg) by mouth once daily as directed. Do not crush or chew., Disp: 90 tablet, Rfl: 3 sacubitril-valsartan (Entresto) 97-103 mg tablet, Take 1 tablet by mouth two times daily., Disp: 180 tablet, Rfl: 3 spironolactone (Aldactone) 25 mg tablet, Take 1 tablet (25 mg) by mouth in the morning., Disp: 90 tablet, Rfl: 3 amoxicillin (Amoxil) 500 mg tablet, Take 4 tablets (2,000 mg) by mouth 1 (one) time if needed (30-60 minute prior to dental procedures) for up to 20 doses., Disp: 20 tablet, Rfl: 3 aspirin 81 mg chewable tablet, Chew 1 tablet (81 mg) with breakfast., Disp: 90 tablet, Rfl: 3 clopidogrel (Plavix) 75 mg tablet, Take 1 tablet (75 mg) by mouth in the morning., Disp: 90 tablet, Rfl: 3 Recent Labs Admission on 02/06/2025, Discharged on 02/07/2025 Component Date Value ABO Grouping 02/06/2025 A Rh Type 02/06/2025 POS Ab Scrn 02/06/2025 NEG Ventricular Rate 02/06/2025 73 Atrial Rate 02/06/2025 73 IL Interval 02/06/2025 198 QRS DURATION 02/06/2025 116 QT Interval 02/06/2025 422 QTC CALCULATION(BAZETT) 02/06/2025 464 P Moran 02/06/2025 43 R-Moran 02/06/2025 -4 T Wave Moran 02/06/2025 125 Activated Clotting Time 02/06/2025 336 (H) Activated Clotting Time 02/06/2025 316 (H) Sodium 02/07/2025 136 Potassium 02/07/2025 3.0 (L) Chloride 02/07/2025 102 CO2 02/07/2025 25 BUN 02/07/2025 12 Creatinine 02/07/2025 0.81 Glucose 02/07/2025 96 Calcium 02/07/2025 7.5 (L) Anion Gap 02/07/2025 12 eGFR 02/07/2025 95.4 BUN/Creatinine Ratio 02/07/2025 14.8 Auto WBC 02/07/2025 6.13 RBC 02/07/2025 3.63 (L) Hemoglobin 02/07/2025 11.6 (L) Hematocrit 02/07/2025 33.9 (L) MCV 02/07/2025 93.4 MCH 02/07/2025 32.0 MCHC 02/07/2025 34.2 RDW 02/07/2025 14.3 Platelets 02/07/2025 154 Potassium 02/07/2025 3.4 (L) Ancillary Procedure on 02/05/2025 Component Date Value BSA 02/07/2025 2.02 Ancillary Procedure on 01/22/2025 Component Date Value BSA 02/15/2025 2.02 Hospital Outpatient Visit on 12/01/2024 Component Date Value Auto WBC 12/01/2024 6.95 RBC 12/01/2024 4.44 Hemoglobin 12/01/2024 14.0 Hematocrit 12/01/2024 40.9 MCV 12/01/2024 92.1 MCH 12/01/2024 31.5 MCHC 12/01/2024 34.2 RDW 12/01/2024 13.9 Platelets 12/01/2024 167 Sodium 12/01/2024 139 Potassium 12/01/2024 4.5 Chloride 12/01/2024 101 CO2 12/01/2024 24 BUN 12/01/2024 16 Creatinine 12/01/2024 0.93 Glucose 12/01/2024 108 (H) Calcium 12/01/2024 8.8 Anion Gap 12/01/2024 19 eGFR 12/01/2024 88.9 BUN/Creatinine Ratio 12/01/2024 17.2 Ancillary Procedure on 11/07/2024 Component Date Value BSA 11/16/2024 2.05 Blood testing 03/17/2023: Potassium 4.1, BUN 12, creatinine 1.02, EGFR more than 60. Blood testing 01/17/2024: hemoglobin 13.9, platelets 166, potassium 3.9, BUN 12, creatinine 1.18, EGFR more than 60, LFTs normal, triglycerides 49, cholesterol 138, HDL 92, LDL 37. Blood testing 08/16/2024: Potassium 4.0, BUN 16, creatinine 1.3, EGFR 55. Imaging and other tests Limited echocardiogram 02/07/2025: Left Ventricle: The left ventricle is normal size. Global left ventricular systolic function is severely reduced. EF range is estimated at 25 % -30 %. Left ventricular wall thickness is increased. Diffuse global hypokinesis. Right Ventricle: The right ventricle is normal in size. Normal right ventricular systolic function. Left Atrium: The left atrium is normal in size. Aortic Valve: Mild aortic valve regurgitation. Overall Conclusions: Due to suboptimal imaging Lumason contrast was administered for opacification and better delineation of endocardial borders. Well seated 35mm Watchman FLX PRO. Left atrial appendage occlusion procedure 02/06/2025: 1. Successful left atrial appendage closure using a 35 mm Watchman FLX Pro device performed under fluoroscopic and intracardiac echocardiography guidance. ECG 02/06/2025: Sinus rhythm with occasional Premature ventricular complexes Low voltage QRS Possible Anterolateral infarct, age undetermined Abnormal ECG Device check 04/25/2024: Normal function, 6 mode switches consistent with atrial fibrillation. Echocardiogram 12/14/2023: CONCLUSION: 1. The left ventricle exhibits mild eccentric hypertrophy with mildly to moderately reduced systolic function. Estimated ejection fraction is 40%. 2. Normal right ventricular size and systolic function. 3. Mild mitral and tricuspid regurgitation. 4. Mild to moderate aortic regurgitation. 5. Normal right-sided pressures. Echocardiogram 06/01/2023: CONCLUSION: 1. Ventricular systolic function is difficult to assess but appears moderately reduced. LVEF is estimated at 30 to 35%. 2. Normal right ventricular size and systolic function. 3. Mild mitral regurgitation, otherwise no significant valvular dysfunction. 4. Normal right-sided pressures. 5. No pericardial effusion. Device check 05/11/2023: Normal device function, 11 mode switches consistent with atrial fibrillation longest 4-hour and 51 minutes. Echocardiogram 10/28/2022: Ventricular systolic function is moderately to severely reduced with global hypokinesis, LVEF is 25 to 30%. The right ventricle is normal in size with normal systolic function. Mild mitral tricuspid and aortic regurgitation. Mildly elevated right-sided pressures. Echocardiogram 08/18/2022: LV systolic function is severely reduced, EF 25 to 30%, normal right ventricular size and systolic function, moderate left atrial dilatation, mild aortic mitral and tricuspid regurgitation. Mildly elevated right-sided pressures. RVSP is 37 mmHg. No pericardial effusion. Echocardiogram 07/02/2022: Global left ventricular systolic function is severely reduced; visually estimated ejection fraction is 25 to 30%. Global hypokinesis. Mild left ventricular hypertrophy. Mild diastolic dysfunction. Biatrial enlargement. The right ventricle is normal in size and systolic function. Moderate mitral regurgitation. Mild aortic regurgitation. Cardiovascular Laboratory Report (07/03/2022) FINAL IMPRESSIONS: Mild coronary artery disease Moderately reduced global left ventricular systolic function by noninvasive imaging ECG 08/24/2022 showed sinus rhythm with frequent PVCs. His QRS complex 124 ms. Assessment/Plan Diagnoses and all orders for this visit: Paroxysmal atrial fibrillation (CMS/HCC) Presence of Watchman left atrial appendage closure device - aspirin 81 mg chewable tablet; Chew 1 tablet (81 mg) with breakfast. - clopidogrel (Plavix) 75 mg tablet; Take 1 tablet (75 mg) by mouth in the morning. - amoxicillin (Amoxil) 500 mg tablet; Take 4 tablets (2,000 mg) by mouth 1 (one) time if needed (30-60 minute prior to dental procedures) for up to 20 doses. PAF (paroxysmal atrial fibrillation) (CMS/HCC) Chronic systolic heart failure (CMS/HCC) Coronary artery disease involving [place] coronary artery of [place] heart without angina pectoris Primary hypertension ICD (implantable cardioverter-defibrillator) in place Nonischemic cardiomyopathy (CMS/HCC) Ecchymosis 1. Paroxysmal atrial fibrillation, status post watchman left atrial appendage occlusion procedure on 02/06/2025: He did well with the procedure. Currently on aspirin and clopidogrel. I explained to him that he needs to continue DAPT for 6 months followed by aspirin monotherapy. I am giving him prescription for amoxicillin for endocarditis prophylaxis prior to dental procedures in the first 6 months post watchman implantation. 2. Systolic heart failure: nonischemic cardiomyopathy with concomitant mild nonobstructive coronary artery disease. He has chronic systolic heart failure and low ejection fraction despite optimization of medical therapy. his initial diagnosis was in June 2022. He is status post ICD placement in August 2022. His follow-up echocardiogram May 2023 showed ejection fraction 30 to 35%. Follow-up echocardiogram in November 2023 showed LVEF 40%. There was evidence of mild to moderate mitral, aortic and tricuspid regurgitation. Most recent echocardiogram 02/07/2025 showed LVEF 25 to 30%. He is currently in NYHA class I symptoms. I will continue current medications for heart failure. He is on all 4 pillars of HFrEF therapy. Blood pressure and heart rate do not allow further up titration. He has a follow-up cardiac CT for assessment of the Watchman device on 03/26/2025 with a cardiology clinic follow-up on 04/03/2025. No follow-ups on file. Boris Kim MD ORDERS ONLY Observed: 02/20/2025 12:00 AM Status: COMPLETED Source: [facility] [id number] Kristy Doherty 10/1955 [facility] Provider Department [place] 02/20/2025 PAULO DAVIS [facility] HeartVAS Family History Problem Relation Age of Onset Other Mother Stroke Mother Emphysema Father Family Status - Relation Status Age at Mother Father 36 Observed: 02/08/2025 11:08 AM Status: COMPLETED Source: [facility] Post Discharge Call Good morning, I am Michelle Yun RN a lead nurse from [facility]. I am calling you to follow up on your stay with us and make sure all of your questions have been answered. You will be receiving a survey either electronic or via mail and we always aim to receive 9???s and 10???s. If there is any reason you feel as though you cannot give us these scores please indicate that now. 1. How have you been feeling since being discharged from the hospital? I feel good today 2. Did you understand your discharge instructions when they were given to prior to leaving? Yes Were you given an opportunity to ask questions? Yes 3. While a patient in the hospital, was your call light answered in a timely manner? Yes 4. Do have access to all medications that were prescribed to you at discharge? Yes 5. How would you rate your overall stay on a scale of 0-10, 10 being the best experience you have ever had. 9 6. Do you have any further questions you would like to discuss? No Patient Name Kristy Doherty Date 02/08/25 TELEPHONE Observed: 02/08/2025 12:00 AM Status: COMPLETED Source: [facility] [id number] Kritsy Doherty 10/1955 M Date Provider Department Center 02/08/2025 Cristina3-MICHELLE YUN [facility] Medical Family History Problem Relation Age of Onset Other Mother Stroke Mother Emphysema Father Family Status - Relation Status Age at Mother Father Reason for Visit and Comments: Hospital Follow-up [832] POTASSIUM Collected: 12:19 PM Status: UNK Source: [facility] TYPE CODE TESTS RESULT OUT OF RANGE REFERENCE UNITS LAB [id number] POTASSIUM (MMOL/L) IN SER/PLAS 3.4 Low 3.5-5.1 mmol/L Performed By: #### [id number] ## ## [facility]) [address] [place] [address] PROGRESS Observed: 02/07/2025 9:37 AM Status: COMPLETED Source: [facility] 45-day post Watchman CTA ord er 30 Observed: 02/07/2025 8:26 AM Status: COMPLETED Source: [facility] The patient is Moderately St able - Low risk of patient condition declining or worsening The patient's goals for the shift include rest The clinical goals for the shift include vss, safety Problem: Pain - Adult Goal: Verbalizes/displays adequate comfort level or baseline comfort level Outcome: Progressing Problem: Safety - Adult Goal: Free from fall injury Outcome: Progressing Flowsheets (Taken 02/07/2025 0751) Free from fall injury: Instruct patient to call for assistance with activity based on assessment Assess patient frequently for physical needs Problem: Infection Goal: LTG-No signs/symptoms of infection Outcome: Progressing Goal: LTG-Pt free of complications from infection Outcome: Progressing Problem: Chronic Conditions and Co-morbidities Goal: Patient's chronic conditions and co-morbidity symptoms are monitored and maintained or improved Recent Flowsheet Documentation Taken 02/07/2025 0746 by Teddy Sharma RN Care Plan - Patient's Chronic Conditions and Co-Morbidity Symptoms are Monitored and Maintained or Improved: Monitor and assess patient's chronic conditions and comorbid symptoms for stability, deterioration, or improvement DS Observed: 02/07/2025 8:17 AM Status: COMPLETED Source: [facility] Admission Admitted 02/06/2025 for Paroxysmal atrial fibrillation (CM* Discharge Diagnosis Paroxysmal atrial fibrillation (CMS/HCC) Discharge Disposition Home or Self Care (01) Discharge Medications Your medication list START taking these medications Instructions Last Dose Given Next Dose Due aspirin 81 mg chewable tablet Start taking on: February 08, 2025 Chew 1 tablet (81 mg) with breakfast. Do not start before February 08, 2025. clopidogrel 75 mg tablet Commonly known as: Plavix Start taking on: February 08, 2025 Take 1 tablet (75 mg) by mouth in the morning. CONTINUE taking these medications Instructions Last Dose Given Next Dose Due albuterol 90 mcg/actuation inhaler allopurinol 300 mg tablet Commonly known as: Zyloprim atorvastatin 40 mg tablet Commonly known as: Lipitor Take 1 tablet (40 mg) by mouth at bedtime. dapagliflozin propanediol 10 mg Commonly known as: Farxiga Take 1 tablet (10 mg) by mouth once daily as directed. Dupixent Syringe 300 mg/2 mL syringe injection Generic drug: dupilumab fluticasone 50 mcg/actuation nasal spray Commonly known as: Flonase fluticasone propion-salmeteroL 500-50 mcg/dose diskus inhaler Commonly known as: Advair Diskus metoprolol succinate XL 50 mg 24 hr tablet Commonly known as: Toprol-XL Take 1 tablet (50 mg) by mouth once daily as directed. Do not crush or chew. sacubitril-valsartan 97-103 mg tablet Commonly known as: Entresto Take 1 tablet by mouth two times daily. spironolactone 25 mg tablet Commonly known as: Aldactone Take 1 tablet (25 mg) by mouth in the morning. Where to Get Your Medications These medications were sent to [facility] - [place], [place] - [address], [facility] [address] aspirin 81 mg chewable tablet clopidogrel 75 mg tablet Activity ACTIVITY: , Unless otherwise instructed you may: , ??? Resume normal activity in two days, including driving, letting pain be your guide. , ??? Limit lifting over 10 pounds for one week or until wound heals. You may shower 24 hours after the procedure. Remove the bandage from the hospital before showering. , ??? Gently clean site using soap and water while standing in the shower. Dry thoroughly. , ??? Cleaning the site with soap and water is sufficient. Do not apply antibiotic ointments, powders or lotions. Diet Continue on the same type of diet and foods as you were eating before your admission. Drink plenty of water. Allergies Octacosanol Hospital Course HPI: The patient is a 69-year-old male with paroxysmal atrial fibrillation, hypertension, heart failure, and vascular disease. He was not a suitable candidate for long-term anticoagulation therapy due to recurrent upper extremity ecchymosis and difficulty controlling bleeding lesions. After a shared decision-making discussion with Dr. Rudy Guerra, the patient opted for a percutaneous ROBB closure as an alternative to anticoagulation therapy. Procedure Summary: On 02/06/2025 The patient underwent a successful ROBB closure using a 35 mm Watchman FLX Pro device, performed under fluoroscopic and intracardiac echocardiography guidance. The procedure involved multiple device size adjustments due to the complex anatomy of the left atrial appendage. The final device was deployed successfully, with adequate compression and stability. The patient tolerated the procedure well. Post-Procedure Plan: Limited TTE 02/07/2025: Well seated 35mm Watchman FLX PRO. He will receive endocarditis prophylaxis for six months and be started on aspirin 81 mg and clopidogrel 75 mg daily for six months, followed by aspirin alone. A follow-up imaging will be done 45 days post-procedure per Watchman protocol, with an appointment scheduled in the Cardiology Clinic for further management. Groin site intact, no oozing, hematoma, bruit or pseudoaneurysm. Distal pulses present +2. Potassium was noted to be low at 3.0 with replacement increased to 3.4. Another 20 meq was given at discharge. Follow-up appointment scheduled with Dr. Kim 02/26/2025. Pertinent Physical Exam At Time of Discharge Physical Exam General: Alert and oriented, Appears comfortable in no acute distress. HENT: Head: Normocephalic, atraumatic. Eyes: Conjunctiva clear, sclera anicteric. No periorbital edema. Nose: No nasal congestion or discharge. Throat: Mucous membranes moist and pink. Neck: Supple, no lymphadenopathy. No bruits. No jugular venous distension (JVD) at 45???. Pulmonary: Symmetrical chest rise, no accessory muscle use. Clear to auscultation bilaterally. No wheezes, rales, or rhonchi. No tenderness. Cardiovascular: No visible heaves, lifts, or abnormal pulsations. Regular rate and rhythm. S1 and S2 present without murmurs, rubs, or gallops. No S3 or S4. Peripheral Vascular: Pulses (radial, dorsalis pedis, posterior tibial) 2+ bilaterally and symmetrical. No edema, cyanosis, or clubbing. Capillary refill <2 seconds. Abdomen: Flat, no visible pulsations or distension. Bowel sounds normoactive in all quadrants. Soft, non-tender, no masses or hepatosplenomegaly. Extremities: No cyanosis, clubbing, or edema. Warm to touch, full range of motion. No tenderness. Neurological: Alert and oriented to person, place, and time. Normal sensation in all extremities. Skin: Warm, dry, and intact. No rashes, lesions, pallor, or cyanosis. Capillary refill <2 seconds. No diaphoresis or ecchymosis. Lab Results Labs Reviewed BASIC METABOLIC PANEL - Abnormal Result Value Sodium 136 Potassium 3.0 (*) Chloride 102 CO2 25 BUN 12 Creatinine 0.81 Glucose 96 Calcium 7.5 (*) Anion Gap 12 eGFR 95.4 BUN/Creatinine Ratio 14.8 CBC - Abnormal Auto WBC 6.13 RBC 3.63 (*) Hemoglobin 11.6 (*) Hematocrit 33.9 (*) MCV 93.4 MCH 32.0 MCHC 34.2 RDW 14.3 Platelets 154 POTASSIUM - Abnormal Potassium 3.4 (*) ACTIVATED CLOTTING TIME - Abnormal Activated Clotting Time 336 (*) ACTIVATED CLOTTING TIME - Abnormal Activated Clotting Time 316 (*) TYPE AND SCREEN ABO Grouping A Rh Type POS Ab Scrn NEG INSTRUCTIONS FOR SELF CARE AFTER CARDIAC TESTING WITH GROIN ACCESS CARE FOR YOUR INCISION: ??? You may shower 24 hours after the procedure. Remove the bandage from the hospital before showering. ??? Gently clean site using soap and water while standing in the shower. Dry thoroughly. ??? Cleaning the site with soap and water is sufficient. Do not apply antibiotic ointments, powders or lotions. ??? Cover the site after 24 hours with a square adhesive Band-Aid that seals and covers the area well. ??? Keep the site clean and dry to prevent infection. If the bandage becomes wet, remove that one and put on a new one. ??? Do not sit in a bathtub, pool, or hot tub for seven days or until wound has healed. ??? Inspect the site daily. ACTIVITY: Unless otherwise instructed you may: ??? Resume normal activity in two days, including driving, letting pain be your guide. ??? Limit lifting over 10 pounds for one week or until wound heals. NORMAL OBSERVATIONS: ??? Soreness or tenderness that may last one week. ??? Mild oozing from incision site. ??? A certain amount of bruising is normal and could last up to two weeks. ??? Formation of a small lump (dime to quarter size) which may last up to six weeks. FOLLOW UP: Call your physician immediately if you experience any of the following: ??? Significant bleeding that does not stop after 10 minutes of applying firm pressure directly on incision. ??? Increased swelling of groin or leg. ??? Lump at groin site increases in size. ??? Unusual pain at groin or down that leg. ??? Signs of infection: redness, warmth to touch, drainage (other than a little blood on the bandage), poorly healing incision, fever, or chills. Nutrition Screen Issues Requiring Follow-Up Outpatient Follow-Up Future Appointments Date Time Provider Department Center 02/26/2025 10:45 AM Boris Kim MD [facility] Test Results Pending At Discharge CBC Collected: 02/07/2025 4:48 AM Status: UN K Source: [facility] TYPE CODE TESTS RESULT OUT OF RANGE REFERENCE UNITS LAB [id number] LEUKOCYTES(10*3/ U L) IN BLOOD BY AUTOMATED COUNT 6.13 4.00-10.60 10*3/uL LAB [id number] ERYTHROCYTES (10*6/UL) IN BLOOD BY AUTOMATED COUNT 3.63 Low 4.20-5.70 10*6/uL LAB [id number] HEMOGLOBIN (G/DL ) IN BLOOD 11.6 Low 13.0-17.0 g/dL LAB [id number] HEMATOCRIT (%) I N BLOOD BY AUTOMATED COUNT 33.9 Low 39.0-50.0 % LAB [id number] ERYTHROCYTE MEAN CORPUSCULAR VOLUME (FL) BY AUTOMATED COUNT 93.4 82.0-98.0 fL LAB [id number] ERYTHROCYTE MEAN CORPUSCULAR HEMOGLOBIN (PG) BY AUTOMATED COUNT 32.0 27.0-33.0 pg LAB [id number] ERYTHROCYTE MEAN CORPUSCULAR HEMOGLOBIN CONCENTRATION (G/DL) BY AUTOMATED 34.2 32.0-35.0 g/dL LAB [id number] ERYTHROCYTE DISTRIBUTION WIDTH (RATIO) BY AUTOMATED COUNT 14.3 11.5-15.0 % LAB [id number] PLATELETS (10*3/UL) IN BLOOD AUTOMATED COUNT 154 150-400 10*3/uL Performed By: #### [id number] ## ## [facility] ([facility]) [address] [place] [address] BASIC METABOLIC PANEL Collected: 2024 4:48 AM Status: UNK Source: [facility] TYPE CODE TESTS RESULT OUT OF RANGE REFERENCE UNITS LAB [id number] SODIUM (MMOL/L) IN SER/PLAS 136 136-145 mmol/L LAB [id number] POTASSIUM (MMOL/L) IN SER/PLAS 3.0 Low 3.5-5.1 mmol/L LAB [id number] CHLORIDE (MMOL/L) IN SER/PLAS 102 98-107 mmol/L LAB [id number] CARBON DIOXIDE, TOTAL (MMOL/L) IN SER/PLAS 25 21-31 mmol/L LAB [id number] UREA NITROGEN (MG/DL) IN SER/PLAS 12 7-25 mg/dL LAB [id number] CREATININE (MG/DL) IN SER/PLAS 0.81 0.70-1.30 mg/dL LAB [id number] GLUCOSE (MG/DL) IN SER/PLAS 96 70-100 mg/dL LAB 8830018 CALCIUM (MG/DL) IN SER/PLAS 7.5 Low 8.6-10.3 mg/dL LAB [id number] ANION GAP IN SER/PLAS 12 7-20 mmol/L LAB [id number] GLOMERULAR FILTRATION RATE ML/MIN/1.73 SQ M.PREDICTED 95.4 >60.0 mL/min/ 1.73m*2 Result Comment: [facility]???s estimated glomerular filtration rate (eGFR) will no [...] disproportionately affect any one group of individuals. LAB [id number] UREA NITROGEN/CREA TININE (MASS RATIO) IN SER/PLAS 14.8 NA Performed By: #### [id number] ### # [facility] ([facility]) [address] [place] [address] ORDERS ONLY Observed: 02/07/2025 12:00 AM Status: COMPLETED Source: [facility] [id number] Kristy Doherty 10/1955 M Date Provider Department Center 02/07/2025 Sergio-CHUCK GUTIERREZ Family History Problem Relation Age of Onset Other Mother Family Status - Relation Status Age at Mother 30 Observed: 02/06/2025 10:40 PM Status: COMPLETED Source: [facility] The patient is Moderately St able - Low risk of patient condition declining or worsening The patient's goals for the shift include rest The clinical goals for the shift include vss, safety Problem: Discharge Planning Goal: Discharge to home or other facility with appropriate resources Outcome: Progressing Flowsheets (Taken 02/06/2025 1944) Discharge to home or other facility with appropriate resources: Identify barriers to discharge with patient and caregiver Arrange for needed discharge resources and transportation as appropriate Identify discharge learning needs (meds, wound care, etc) Refer to discharge planning if patient needs post-hospital services based on physician order or complex needs related to functional status, cognitive ability or social support system Problem: Pain - Adult Goal: Verbalizes/displays adequate comfort level or baseline comfort level Outcome: Progressing Problem: Safety - Adult Goal: Free from fall injury Outcome: Progressing Flowsheets (Taken 02/06/20251943) Free from fall injury: Assess patient frequently for physical needs Identify cognitive and physical deficits and behaviors that affect risk of falls [place] fall precautions as indicated by assessment Educate patient/family on patient safety, including physical limitations Instruct patient to call for assistance with activity based on assessment Problem: Chronic Conditions and Co-morbidities Goal: Patient's chronic conditions and co-morbidity symptoms are monitored and maintained or improved Outcome: Progressing Flowsheets (Taken 02/06/20251943) Care Plan - Patient's Chronic Conditions and Co-Morbidity Symptoms are Monitored and Maintained or Improved: Monitor and assess patient's chronic conditions and comorbid symptoms for stability, deterioration, or improvement Collaborate with multidisciplinary team to address chronic and comorbid conditions and prevent exacerbation or deterioration Update acute care plan with appropriate goals if chronic or comorbid symptoms are exacerbated and prevent overall improvement and discharge 30 Observed: 02/06/2025 5:20 PM Status: COMPLETED Source: [facility] The patient is Moderately St able - Low risk of patient condition declining or worsening The patient's goals for the shift include Comfort/Rest The clinical goals for the shift include Cath site chescks, stable vital signs Over the shift, the patient did not make progress toward the following goals. Barriers to progression include N/A. Recommendations to address these barriers include N/A. NURSNOTE Observed: 02/06/2025 1:53 PM Status: COMPLETED Source: [facility] Report given to SAL Charlton from SAL Flores RN notified RN of pts procedural intervention site, allergies, IV location/status, and medications given during the procedure. Any diagnostics, abnormal labs, abnormal assessment findings, orders and safety concerns/issues were reviewed. RN encouraged RN receiving handoff to voice any questions or concerns, and answered any questions or concerns if verbalized. RN verbalizes the pt will be coming up to the floor soon. HP Observed: 02/06/2025 10:28 AM Status: COMPLETED Source: [facility] History Of Present Illness Kristy Doherty is a 69 y.o. male presenting for left atrial appendage occlusion procedure. He is a 69-year-old man with systolic heart failure. He has prior history of hypertension. In June 2022 he was admitted to the [facility] with syncope and echocardiogram showed new onset systolic heart failure with ejection fraction of 25%. Carotid ultrasound showed no significant stenosis. CT head was negative for intracranial pathology. He ended up being transferred to [facility] and underwent cardiac catheterization that showed [...] rhythm strips. He then underwent a dual-chamber [employer] ICD placement on 09/04/2022. He was evaluated in cardiology clinic on 05/11/[address] Bobo Raymond and due to device discovered atrial fibrillation he was started on Eliquis for anticoagulation. he has been having significant issues with upper extremity ecchymosis and bleeding. He had large ecchymoses in both right and left arms without any trauma. He says that he would form and small bullae that we will start bleeding and requires a lot of pressure to stop. Past Medical History He has a past medical history of Asthma (07/29/2012), CHF (congestive heart failure) ([facility]), Coronary artery disease, History of malignant neoplasm of prostate (07/03/2022), and Hypertension (07/03/2022). Surgical History He has a past surgical history that includes Prostatectomy; Cardiac catheterization; Sinus surgery; and Band hemorrhoidectomy. Social History He reports that he has quit smoking. His smoking use included cigarettes. He has never used smokeless tobacco. He reports current alcohol use of about 14.0 standard drinks of alcohol per week. He reports that he does not use drugs. Allergies Octacosanol Medications Prescriptions Prior to Admission[1] Review of Systems Hematologic/Lymphatic: Bruises/bleeds easily. Musculoskeletal: Positive for arthritis, back pain and myalgias. All other systems reviewed and are negative. Physical Exam Constitutional: Appearance: He is well-developed. [...] Behavior: Behavior is cooperative. Judgment: Judgment normal. . Last Recorded Vitals Blood pressure 143/85, pulse 74, resp. rate 16, SpO2 97%. Relevant Results MASON 12/01/2024: Left Ventricle: The left ventricle is normal [...] Pericardium: There is a minimal pericardial effusion. Device check 04/25/2024: Normal function, 6 mode switches consistent with atrial fibrillation. Echocardiogram 12/14/2023: CONCLUSION: 1. The left ventricle exhibits mild eccentric hypertrophy with mildly to moderately reduced systolic function. Estimated ejection fraction is 40%. 2. Normal right ventricular size and systolic function. 3. Mild mitral and tricuspid regurgitation. 4. Mild to moderate aortic regurgitation. 5. Normal right-sided pressures. Echocardiogram 06/01/2023: CONCLUSION: 1. Ventricular systolic function is difficult to assess but appears moderately reduced. LVEF is estimated at 30 to 35%. 2. Normal right ventricular size and systolic function. 3. Mild mitral regurgitation, otherwise no significant valvular dysfunction. 4. Normal right-sided pressures. 5. No pericardial effusion. Device check 05/11/2023: Normal device function, 11 mode switches consistent with atrial fibrillation longest 4-hour and 51 minutes. Echocardiogram 10/28/2022: Ventricular systolic function is moderately to severely reduced with global hypokinesis, LVEF is 25 to 30%. The right ventricle is normal in size with normal systolic function. Mild mitral tricuspid and aortic regurgitation. Mildly elevated right-sided pressures. Echocardiogram 08/18/2022: LV systolic function is severely reduced, EF 25 to 30%, normal right ventricular size and systolic function, moderate left atrial dilatation, mild aortic mitral and tricuspid regurgitation. Mildly elevated right-sided pressures. RVSP is 37 mmHg. No pericardial effusion. Echocardiogram 07/02/2022: Global left ventricular systolic function is severely reduced; visually estimated ejection fraction is 25 to 30%. Global hypokinesis. Mild left ventricular hypertrophy. Mild diastolic dysfunction. Biatrial enlargement. The right ventricle is normal in size and systolic function. Moderate mitral regurgitation. Mild aortic regurgitation. Cardiovascular Laboratory Report (07/03/2022) FINAL IMPRESSIONS: Mild coronary artery disease Moderately reduced global left ventricular systolic function by noninvasive imaging ECG 08/24/2022 showed sinus rhythm with frequent PVCs. His QRS complex 124 ms. Assessment/Plan Principal Problem: Paroxysmal atrial fibrillation (CMS/HCC) Active Problems: PAF (paroxysmal atrial fibrillation) (CMS/HCC) He needs residential anticoagulation given elevated [id number] score of 4 due to age, heart failure, hypertension and CAD. He however has been having significant upper extremity ecchymosis and bleeding lesions. I again discussed the left atrial appendage closure procedure with him along with risks and benefits. I explained the risks and benefits of the procedure. In particular I mentioned the small risk of device embolization as well as cardiac perforation and requirement for emergency surgery. I also mentioned the small risk of device related thrombus. I also explained the post procedural follow-up and antithrombotic regimen. he would like to proceed. [1] Medications Prior to Admission Medication Sig Dispense Refill Last Dose/Taking albuterol 90 mcg/actuation inhaler Inhale 2 puffs every 4 (four) hours if needed for wheezing. 02/06/2025 Morning allopurinol (Zyloprim) 300 mg tablet Take 300 mg by mouth in the morning. 02/06/2025 Morning apixaban (Eliquis) 5 mg tablet Take 1 tablet (5 mg) by mouth two times daily. 180 tablet 3 Past Week atorvastatin (Lipitor) 40 mg tablet Take 1 tablet (40 mg) by mouth at bedtime. 90 tablet 3 02/05/2025 Bedtime dapagliflozin propanediol (Farxiga) 10 mg Take 1 tablet (10 mg) by mouth once daily as directed. 90 tablet 3 02/06/2025 Morning fluticasone (Flonase) 50 mcg/actuation nasal spray Administer 2 sprays into each nostril in the morning. Shake gently. Before first use, prime pump. After use, clean tip and replace cap. 02/06/2025 Morning fluticasone propion-salmeteroL (Advair Diskus) 500-50 mcg/dose diskus inhaler Inhale 1 puff two times daily. 02/06/2025 Morning metoprolol succinate XL (Toprol-XL) 50 mg 24 hr tablet Take 1 tablet (50 mg) by mouth once daily as directed. Do not crush or chew. 90 tablet 3 02/06/2025 Morning sacubitril-valsartan (Entresto) 97-103 mg tablet Take 1 tablet by mouth two times daily. 180 tablet 3 02/06/2025 Morning spironolactone (Aldactone) 25 mg tablet Take 1 tablet (25 mg) by mouth in the morning. 90 tablet 3 02/06/2025 Morning Dupixent Syringe 300 mg/2 mL syringe injection Inject 300 mg under the skin. ANES Observed: 02/06/2025 10:28 AM Status: COMPLETED Source: [facility] Patient: Kristy Doherty Procedure Information Date/Time: 02/06/25 0800 Procedure: Left atrial appendage closure (transvenous) Location: [facility] TMD TEACHER 3 / [facility] (Cath) Providers: Boris Kim MD Clinical information reviewed: Tobacco Allergies Meds Med Hx Surg Hx Fam Hx Soc Hx Physical Exam Airway Mallampati: I TM distance: >3 FB Neck ROM: full Cardiovascular Rhythm: regular Rate: normal Dental Pulmonary Breath sounds clear to auscultation Neurological Abdominal Anesthesia Plan ASA 3 other (Conscious sedation.) Anesthetic plan and risks discussed with patient. Use of blood products discussed with patient who consented to blood products. Additional Equipment Requests TYPE AND SCREEN Collected: 02/06/2025 7:46 AM Status : UNK Source: [facility] TYPE CODE TESTS RESULT OUT OF RANGE REFERENCE UNITS LAB [id number] ABO GROUP (TYPE) IN BLOOD A LAB [id number] RH TYPE IN BLOOD POS LAB [id number] AB SCREEN NEG Performed By: #### [id number] ## ## [facility] BLOOD BANK , NURSNOTE Observed: 02/06/2025 7:27 AM Status: COMPLETED Source: [facility] CHG wipes and betadine nasal swabs completed. ORDERS ONLY Observed: 02/04/2025 12:00 AM Status: COMPLETED Source: [facility] [id number] ChasKristy 10/1955 [facility] Provider Department [place] 02/04/2025 BOBO GRIER C CARD MA [facility] Family History Problem Relation Age of Onset Other Mother Family Status - Relation Status Age at Mother PREP FOR PROCEDURE Observed: 01/24/2025 12:00 AM Status: COMPLETED Source: [facility] [id number] Chas,Kristy 10/1955 [facility] Provider Department [place] 01/24/2025 166-[address] G[address]Z [address] Family History Problem Relation Age of Onset Other Mother Family Status - Relation Status Age at Mother ORDERS ONLY Observed: 01/03/2025 12:00 AM Status: COMPLETED Source: [facility] [id number] ChasKristy 10/1955 [facility] Provider Department [place] 01/03/2025 166CHUCK URBINA [facility] Family History Problem Relation Age of Onset Other Mother Family Status - Relation Status Age at Mother ORDERS ONLY Observed: 12/20/2024 12:00 AM Status: COMPLETED Source: [facility] [id number] Chas,Kristy 10/1955 [facility] Provider Department [place] 12/20/2024 325-PAULO VERNON HVC CARD MA [facility] Family History Problem Relation Age of Onset Other Mother Family Status - Relation Status Age at Mother NURSNOTE Observed: 12/01/2024 12:00 PM Status: COMPLETED Source: [facility] RN educated pt on discharge instructions. RN encouraged pt to voice any questions or concerns. Pt verbalizes no questions or concerns at this time. Pt was wheeled off unit with all belongings. Pt instructed to only consume sips of water until 14:30 then soft foods after 14:30 and the rest of the day. NURSNOTE Observed: 12/01/2024 12:00 PM Status: COMPLETED Source: [facility] Bedside swallow study comple shan and passed. ANES Observed: 12/01/2024 12:00 PM Status: COMPLETED Source: [facility] Patient: Kristy Doherty Procedure Information Date/Time: 12/01/24 1200 Procedure: TRANSESOPHAGEAL ECHO (MASON) Location: [facility] Vascular Lab Clinical [...] consented to blood products. Additional Equipment Requests HP Observed: 12/01/2024 12:00 PM Status: COMPLETED Source: [facility] H&P reviewed. The patient wa s examined and there are no changes to the H&P. BASIC METABOLIC PANEL Collected: 2024 10:35 AM Status: UNK Source: [facility] TYPE CODE TESTS RESULT OUT OF RANGE REFERENCE UNITS LAB [id number] SODIUM (MMOL/L) IN SER/PLAS 139 136-145 mmol/L LAB [id number] POTASSIUM (MMOL/L) IN SER/PLAS 4.5 3.5-5.1 mmol/L LAB [id number] CHLORIDE (MMOL/L) IN SER/PLAS 101 98-107 mmol/L LAB [id number] CARBON DIOXIDE, TOTAL (MMOL/L) IN SER/PLAS 24 21-31 mmol/L LAB [id number] UREA NITROGEN (MG/DL) IN SER/PLAS 16 7-25 mg/dL LAB [id number] CREATININE (MG/DL) IN SER/PLAS 0.93 0.70-1.30 mg/dL LAB [id number] GLUCOSE (MG/DL) IN SER/PLAS 108 High 70-100 mg/dL LAB 7001508 CALCIUM (MG/DL) IN SER/PLAS 8.8 8.6-10.3 mg/dL LAB 1017081 ANION GAP IN SER/PLAS 19 7-20 mmol/L LAB [id number] GLOMERULAR FILTRATION RATE ML/MIN/1.73 SQ M.PREDICTED 88.9 >60.0 mL/min/ 1.73m*2 Result Comment: [facility]???s estimated glomerular filtration rate (eGFR) will no [...] disproportionately affect any one group of individuals. LAB [id number] UREA NITROGEN/CREA TININE (MASS RATIO) IN SER/PLAS 17.2 NA Performed By: #### [id number] ### # [facility] ([facility]) [address] [place] [address] CBC Collected: 12/01/2024 10:35 AM Status: U NK Source: [facility] TYPE CODE TESTS RESULT OUT OF RANGE REFERENCE UNITS LAB [id number] LEUKOCYTES(10*3/ U L) IN BLOOD BY AUTOMATED COUNT 6.95 4.00-10.60 10*3/uL LAB 5567069 ERYTHROCYTES (10*6/UL) IN BLOOD BY AUTOMATED COUNT 4.44 4.20-5.70 10*6/uL LAB 1720480 HEMOGLOBIN (G/DL ) IN BLOOD 14.0 13.0-17.0 g/dL LAB 6340748 HEMATOCRIT (%) I N BLOOD BY AUTOMATED COUNT 40.9 39.0-50.0 % LAB 1947161 ERYTHROCYTE MEAN CORPUSCULAR VOLUME (FL) BY AUTOMATED COUNT 92.1 82.0-98.0 fL LAB 2049073 ERYTHROCYTE MEAN CORPUSCULAR HEMOGLOBIN (PG) BY AUTOMATED COUNT 31.5 27.0-33.0 pg LAB 8497643 ERYTHROCYTE MEAN CORPUSCULAR HEMOGLOBIN CONCENTRATION (G/DL) BY AUTOMATED 34.2 32.0-35.0 g/dL LAB 2195255 ERYTHROCYTE DISTRIBUTION WIDTH (RATIO) BY AUTOMATED COUNT 13.9 11.5-15.0 % LAB 5360015 PLATELETS (10*3/UL) IN BLOOD AUTOMATED COUNT 167 150-400 10*3/uL Performed By: #### [id number] ## ## [facility] ([facility]) [address] [place] [address] TELEPHONE Observed: 11/23/2024 12:00 AM Status: COMPLETED Source: [facility] [id number] Kristy Doherty 10/1955 [facility] Provider Department Center 11/23/2024 REINALDO RAI [facility] VASC LAB MA [facility] Family History Problem Relation Age of Onset Other Mother Family Status - Relation Status Age at Mother ORDERS ONLY Observed: 11/19/2024 12:00 AM Status: COMPLETED Source: [facility] [id number] Kristy Doherty 10/1955 M [facility] Provider Department [place] 11/19/2024 Kyle-PAULO VERNON HVC CARD MA [facility] Family History Problem Relation Age of Onset Other Mother Family Status - Relation Status Age at Mother PROGRESS Observed: 11/13/2024 10:00 AM Status: COMPLETED Source: [facility] Cardiology - [facility] Subjective Kristy Doherty is a 69 [...] Syncope and collapse Coronary artery disease involving [place] coronary artery of [place] heart without angina pectoris Chronic systolic heart [...] June 2022 he was admitted to the [facility] with syncope and echocardiogram showed new onset systolic heart failure with ejection fraction of 25%. Carotid ultrasound showed no significant stenosis. CT head was negative for intracranial pathology. He ended up being transferred to [facility] and underwent cardiac catheterization that showed [...] rhythm strips. He then underwent a dual-chamber [employer] ICD placement on 09/04/2022. He was [...] Behavior is cooperative. Judgment: Judgment normal. Allergies Allergies Allergen Reactions Octacosanol Unknown Other Reaction(s): Unknown Medications Current Outpatient Medications: albuterol 90 mcg/actuation [...] at bedtime., Disp: 90 tablet, Rfl: 3 dapagliflozin propanediol (Farxiga) 10 mg, Take 1 tablet (10 mg) by mouth once daily as directed., Disp: 90 tablet, Rfl: 3 Dupixent Syringe 300 mg/2 mL syringe injection, , Disp: , Rfl: fluticasone (Flonase) 50 mcg/actuation nasal spray, Administer 2 sprays into each nostril in the morning. Shake gently. Before first use, prime pump. After use, clean tip and replace cap., Disp: , Rfl: fluticasone propion-salmeteroL (Advair Diskus) 500-50 mcg/dose diskus inhaler, inhale 1 puff by mouth and INTO THE LUNGS twice a day, Disp: , Rfl: metoprolol succinate XL (Toprol-XL) 50 mg 24 hr tablet, Take 1 tablet (50 mg) by mouth once daily as directed. Do not crush or chew., Disp: 90 tablet, Rfl: 3 spironolactone (Aldactone) 25 mg tablet, Take 1 tablet (25 mg) by mouth in the morning., Disp: 90 tablet, Rfl: 3 sacubitril-valsartan (Entresto) 97-103 mg tablet, Take 1 tablet by mouth two times daily. (Patient not taking: Reported on 11/13/2024), Disp: 180 tablet, Rfl: 3 Recent Labs No visits with results within 6 Month(s) from this visit. Latest known visit with results is: Ancillary Procedure on 12/14/2023 Component Date Value BSA 01/12/2024 2.05 Blood testing 03/17/2023: Potassium 4.1, BUN 12, creatinine 1.02, EGFR more than 60. Blood testing 01/17/2024: hemoglobin 13.9, platelets 166, potassium 3.9, BUN 12, creatinine 1.18, EGFR more than 60, LFTs normal, triglycerides 49, cholesterol 138, HDL 92, LDL 37. Blood testing 08/16/2024: Potassium 4.0, BUN 16, creatinine 1.3, EGFR 55. Imaging and other tests Device check 04/25/2024: Normal function, 6 mode switches consistent with atrial fibrillation. Echocardiogram 12/14/2023: CONCLUSION: 1. The left ventricle exhibits mild eccentric hypertrophy with mildly to moderately reduced systolic function. Estimated ejection fraction is 40%. 2. Normal right ventricular size and systolic function. 3. Mild mitral and tricuspid regurgitation. 4. Mild to moderate aortic regurgitation. 5. Normal right-sided pressures. Echocardiogram 06/01/2023: CONCLUSION: 1. Ventricular systolic function is difficult to assess but appears moderately reduced. LVEF is estimated at 30 to 35%. 2. Normal right ventricular size and systolic function. 3. Mild mitral regurgitation, otherwise no significant valvular dysfunction. 4. Normal right-sided pressures. 5. No pericardial effusion. Device check 05/11/2023: Normal device function, 11 mode switches consistent with atrial fibrillation longest 4-hour and 51 minutes. Echocardiogram 10/28/2022: Ventricular systolic function is moderately to severely reduced with global hypokinesis, LVEF is 25 to 30%. The right ventricle is normal in size with normal systolic function. Mild mitral tricuspid and aortic regurgitation. Mildly elevated right-sided pressures. Echocardiogram 08/18/2022: LV systolic function is severely reduced, EF 25 to 30%, normal right ventricular size and systolic function, moderate left atrial dilatation, mild aortic mitral and tricuspid regurgitation. Mildly elevated right-sided pressures. RVSP is 37 mmHg. No pericardial effusion. Echocardiogram 07/02/2022: Global left ventricular systolic function is severely reduced; visually estimated ejection fraction is 25 to 30%. Global hypokinesis. Mild left ventricular hypertrophy. Mild diastolic dysfunction. Biatrial enlargement. The right ventricle is normal in size and systolic function. Moderate mitral regurgitation. Mild aortic regurgitation. Cardiovascular Laboratory Report (07/03/2022) FINAL IMPRESSIONS: Mild coronary artery disease Moderately reduced global left ventricular systolic function by noninvasive imaging ECG 08/24/2022 showed sinus rhythm with frequent PVCs. His QRS complex 124 ms. Assessment/Plan Diagnoses and all orders for this visit: Chronic systolic heart failure (CMS/HCC) - Basic metabolic panel; Future - CBC and differential; Future Coronary artery disease involving [place] coronary artery of [place] heart without angina pectoris Paroxysmal atrial fibrillation (CMS/HCC) - Transesophageal echo (MASON); Future - Basic metabolic panel; Future - CBC and differential; Future Primary hypertension ICD (implantable cardioverter-defibrillator) in place Nonischemic cardiomyopathy (CMS/HCC) Ecchymosis Kristy has nonischemic cardiomyopathy with concomitant mild nonobstructive coronary artery disease. He has chronic systolic heart failure and low ejection fraction despite optimization of medical therapy. his initial diagnosis was in June 2022. He is status post ICD placement in August 2022. His follow-up echocardiogram May 2023 showed ejection fraction 30 to 35%. Follow-up echocardiogram in November 2023 showed LVEF 40%. There was evidence of mild to moderate mitral, aortic and tricuspid regurgitation. He is currently in NYHA class I symptoms. I will continue current medications for heart failure, in particular I asked them to resume Entresto. He was also diagnosed to have paroxysmal atrial fibrillation based on device interrogation and was started on Eliquis for anticoagulation given elevated [id number] score of 4 due to age, heart failure, hypertension and CAD. Due to being on Eliquis and having mild CAD I have stopped aspirin to reduce the risk of bleeding. He however has been having significant upper extremity ecchymosis and bleeding lesions. I discussed with him that given that he is on Eliquis 5 mg twice daily which is an appropriate dose for him based on age, body weight and renal function, we can reduce it to 2.5 mg twice daily however this will not provide him with adequate protection for stroke prevention. I discussed the left atrial appendage closure procedure with him along with risks and benefits. I explained the risks and benefits of the procedure. In particular I mentioned the small risk of device embolization as well as cardiac perforation and requirement for emergency surgery. I also mentioned the small risk of device related thrombus. I also explained the post procedural follow-up and antithrombotic regimen. he would like to proceed. he needs to have a shared decision making process with Dr. Guerra his primary care physician. We will start by setting up a transesophageal echocardiogram for assessment of the left atrial appendage anatomy. He would like to have the procedure after January 2025 since he will be going on vacation soon. No follow-ups on file. Boris Kim MD Observed: 11/13/2024 10:00 AM Status: COMPLETED Source: [facility] Cardiology [facility] Thea Doherty is a 69 y.o. year old [...] Syncope and collapse Coronary artery disease involving [place] coronary artery of [place] heart without angina pectoris Chronic systolic heart [...] June 2022 he was admitted to the [facility] with syncope and echocardiogram showed new onset systolic heart failure with ejection fraction of 25%. Carotid ultrasound showed no significant stenosis. CT head was negative for intracranial pathology. He ended up being transferred to [facility] and underwent cardiac catheterization that showed [...] rhythm strips. He then underwent a dual-chamber [employer] ICD placement on 09/04/2022. He was [...] Behavior is cooperative. Judgment: Judgment normal. Allergies Allergies Allergen Reactions Octacosanol Unknown Other Reaction(s): Unknown Medications Current Outpatient Medications: albuterol 90 mcg/actuation [...] at bedtime., Disp: 90 tablet, Rfl: 3 dapagliflozin propanediol (Farxiga) 10 mg, Take 1 tablet (10 mg) by mouth once daily as directed., Disp: 90 tablet, Rfl: 3 Dupixent Syringe 300 mg/2 mL syringe injection, , Disp: , Rfl: fluticasone (Flonase) 50 mcg/actuation nasal spray, Administer 2 sprays into each nostril in the morning. Shake gently. Before first use, prime pump. After use, clean tip and replace cap., Disp: , Rfl: fluticasone propion-salmeteroL (Advair Diskus) 500-50 mcg/dose diskus inhaler, inhale 1 puff by mouth and INTO THE LUNGS twice a day, Disp: , Rfl: metoprolol succinate XL (Toprol-XL) 50 mg 24 hr tablet, Take 1 tablet (50 mg) by mouth once daily as directed. Do not crush or chew., Disp: 90 tablet, Rfl: 3 spironolactone (Aldactone) 25 mg tablet, Take 1 tablet (25 mg) by mouth in the morning., Disp: 90 tablet, Rfl: 3 sacubitril-valsartan (Entresto) 97-103 mg tablet, Take 1 tablet by mouth two times daily. (Patient not taking: Reported on 11/13/2024), Disp: 180 tablet, Rfl: 3 Recent Labs No visits with results within 6 Month(s) from this visit. Latest known visit with results is: Ancillary Procedure on 12/14/2023 Component Date Value BSA 01/12/2024 2.05 Blood testing 03/17/2023: Potassium 4.1, BUN 12, creatinine 1.02, EGFR more than 60. Blood testing 01/17/2024: hemoglobin 13.9, platelets 166, potassium 3.9, BUN 12, creatinine 1.18, EGFR more than 60, LFTs normal, triglycerides 49, cholesterol 138, HDL 92, LDL 37. Blood testing 08/16/2024: Potassium 4.0, BUN 16, creatinine 1.3, EGFR 55. Imaging and other tests Device check 04/25/2024: Normal function, 6 mode switches consistent with atrial fibrillation. Echocardiogram 12/14/2023: CONCLUSION: 1. The left ventricle exhibits mild eccentric hypertrophy with mildly to moderately reduced systolic function. Estimated ejection fraction is 40%. 2. Normal right ventricular size and systolic function. 3. Mild mitral and tricuspid regurgitation. 4. Mild to moderate aortic regurgitation. 5. Normal right-sided pressures. Echocardiogram 06/01/2023: CONCLUSION: 1. Ventricular systolic function is difficult to assess but appears moderately reduced. LVEF is estimated at 30 to 35%. 2. Normal right ventricular size and systolic function. 3. Mild mitral regurgitation, otherwise no significant valvular dysfunction. 4. Normal right-sided pressures. 5. No pericardial effusion. Device check 05/11/2023: Normal device function, 11 mode switches consistent with atrial fibrillation longest 4-hour and 51 minutes. Echocardiogram 10/28/2022: Ventricular systolic function is moderately to severely reduced with global hypokinesis, LVEF is 25 to 30%. The right ventricle is normal in size with normal systolic function. Mild mitral tricuspid and aortic regurgitation. Mildly elevated right-sided pressures. Echocardiogram 08/18/2022: LV systolic function is severely reduced, EF 25 to 30%, normal right ventricular size and systolic function, moderate left atrial dilatation, mild aortic mitral and tricuspid regurgitation. Mildly elevated right-sided pressures. RVSP is 37 mmHg. No pericardial effusion. Echocardiogram 07/02/2022: Global left ventricular systolic function is severely reduced; visually estimated ejection fraction is 25 to 30%. Global hypokinesis. Mild left ventricular hypertrophy. Mild diastolic dysfunction. Biatrial enlargement. The right ventricle is normal in size and systolic function. Moderate mitral regurgitation. Mild aortic regurgitation. Cardiovascular Laboratory Report (07/03/2022) FINAL IMPRESSIONS: Mild coronary artery disease Moderately reduced global left ventricular systolic function by noninvasive imaging ECG 08/24/2022 showed sinus rhythm with frequent PVCs. His QRS complex 124 ms. Assessment/Plan Diagnoses and all orders for this visit: Chronic systolic heart failure (CMS/HCC) - Basic metabolic panel; Future - CBC and differential; Future Coronary artery disease involving [place] coronary artery of [place] heart without angina pectoris Paroxysmal atrial fibrillation (CMS/HCC) - Transesophageal echo (MASON); Future - Basic metabolic panel; Future - CBC and differential; Future Primary hypertension ICD (implantable cardioverter-defibrillator) in place Nonischemic cardiomyopathy (CMS/HCC) Maurahymoeddie Malagon has nonischemic cardiomyopathy with concomitant mild nonobstructive coronary artery disease. He has chronic systolic heart failure and low ejection fraction despite optimization of medical therapy. his initial diagnosis was in June 2022. He is status post ICD placement in August 2022. His follow-up echocardiogram May 2023 showed ejection fraction 30 to 35%. Follow-up echocardiogram in November 2023 showed LVEF 40%. There was evidence of mild to moderate mitral, aortic and tricuspid regurgitation. He is currently in NYHA class I symptoms. I will continue current medications for heart failure, in particular I asked them to resume Entresto. He was also diagnosed to have paroxysmal atrial fibrillation based on device interrogation and was started on Eliquis for anticoagulation given elevated [id number] score of 4 due to age, heart failure, hypertension and CAD. Due to being on Eliquis and having mild CAD I have stopped aspirin to reduce the risk of bleeding. He however has been having significant upper extremity ecchymosis and bleeding lesions. I discussed with him that given that he is on Eliquis 5 mg twice daily which is an appropriate dose for him based on age, body weight and renal function, we can reduce it to 2.5 mg twice daily however this will not provide him with adequate protection for stroke prevention. I discussed the left atrial appendage closure procedure with him along with risks and benefits. I explained the risks and benefits of the procedure. In particular I mentioned the small risk of device embolization as well as cardiac perforation and requirement for emergency surgery. I also mentioned the small risk of device related thrombus. I also explained the post procedural follow-up and antithrombotic regimen. he would like to proceed. he needs to have a shared decision making process with Dr. Guerra his primary care physician. We will start by setting up a transesophageal echocardiogram for assessment of the left atrial appendage anatomy. He would like to have the procedure after January 2025 since he will be going on vacation soon. No follow-ups on file. Boris Kim MD OFFICE VISIT Observed: 11/13/2024 10:00 AM Status: COMPLETED Source: [facility] [id number] Kristy Doherty 10/1955 M Date Provider Department Center 11/13/2024 Shania-BORIS KIM ALON Goldberg Family History Problem Relation Age of Onset Other Mother Family Status - Relation Status Age at Mother Level of Service:[address] [place] OFFICE/OUTPATIENT ESTABLISHED HIGH MDM 40 MIN 36 Observed: 08/17/2024 12:39 PM Status: COMPLETED Source: [facility] Regarding lab results from : MD Zaida Currie MA His blood test was okay. Continue same and follow-up as planned. Patient made aware. PROGRESS Observed: 07/03/2024 10:15 AM Status: COMPLETED Source: [facility] Cardiology - [facility] Subjective Kristy Doherty is a 68 y.o. [...] Syncope and collapse Coronary artery disease involving [place] coronary artery of [place] heart without angina pectoris Chronic systolic heart [...] June 2022 he was admitted to the [facility] with syncope and echocardiogram showed new onset systolic heart failure with ejection fraction of 25%. Carotid ultrasound showed no significant stenosis. CT head was negative for intracranial pathology. He ended up being transferred to [facility] and underwent cardiac catheterization that showed [...] rhythm strips. He then underwent a dual-chamber [employer] ICD placement on 09/04/2022. He was [...] by mouth at bedtime, Disp: 90 tablet, Rfl: 3 dapagliflozin propanediol (Farxiga) 10 mg, Take 1 tablet (10 mg) by mouth once daily as directed., Disp: 90 tablet, Rfl: 3 Dupixent Syringe 300 mg/2 mL syringe injection, , Disp: , Rfl: fluticasone (Flonase) 50 mcg/actuation nasal spray, Administer 2 sprays into each nostril in the morning. Shake gently. Before first use, prime pump. After use, clean tip and replace cap., Disp: , Rfl: fluticasone propion-salmeteroL (Advair Diskus) 500-50 mcg/dose diskus inhaler, inhale 1 puff by mouth and INTO THE LUNGS twice a day, Disp: , Rfl: metoprolol succinate XL (Toprol-XL) 50 mg 24 hr tablet, Take 1 tablet (50 mg) by mouth in the morning. Do not crush or chew., Disp: 90 tablet, Rfl: 3 spironolactone (Aldactone) 25 mg tablet, Take 1 tablet (25 mg) by mouth in the morning., Disp: 90 tablet, Rfl: 3 sacubitril-valsartan (Entresto) 97-103 mg tablet, Take 1 tablet by mouth two times daily., Disp: 180 tablet, Rfl: 3 Recent Labs No visits with results within 6 Month(s) from this visit. Latest known visit with results is: Ancillary Procedure on 12/14/2023 Component Date Value BSA 01/12/2024 2.05 Blood testing 03/17/2023: Potassium 4.1, BUN 12, creatinine 1.02, EGFR more than 60. Blood testing 01/17/2024: hemoglobin 13.9, platelets 166, potassium 3.9, BUN 12, creatinine 1.18, EGFR more than 60, LFTs normal, triglycerides 49, cholesterol 138, HDL 92, LDL 37. Imaging and other tests Device check 04/25/2024: Normal function, 6 mode switches consistent with atrial fibrillation. Echocardiogram 12/14/2023: CONCLUSION: 1. The left ventricle exhibits mild eccentric hypertrophy with mildly to moderately reduced systolic function. Estimated ejection fraction is 40%. 2. Normal right ventricular size and systolic function. 3. Mild mitral and tricuspid regurgitation. 4. Mild to moderate aortic regurgitation. 5. Normal right-sided pressures. Echocardiogram 06/01/2023: CONCLUSION: 1. Ventricular systolic function is difficult to assess but appears moderately reduced. LVEF is estimated at 30 to 35%. 2. Normal right ventricular size and systolic function. 3. Mild mitral regurgitation, otherwise no significant valvular dysfunction. 4. Normal right-sided pressures. 5. No pericardial effusion. Device check 05/11/2023: Normal device function, 11 mode switches consistent with atrial fibrillation longest 4-hour and 51 minutes. Echocardiogram 10/28/2022: Ventricular systolic function is moderately to severely reduced with global hypokinesis, LVEF is 25 to 30%. The right ventricle is normal in size with normal systolic function. Mild mitral tricuspid and aortic regurgitation. Mildly elevated right-sided pressures. Echocardiogram 08/18/2022: LV systolic function is severely reduced, EF 25 to 30%, normal right ventricular size and systolic function, moderate left atrial dilatation, mild aortic mitral and tricuspid regurgitation. Mildly elevated right-sided pressures. RVSP is 37 mmHg. No pericardial effusion. Echocardiogram 07/02/2022: Global left ventricular systolic function is severely reduced; visually estimated ejection fraction is 25 to 30%. Global hypokinesis. Mild left ventricular hypertrophy. Mild diastolic dysfunction. Biatrial enlargement. The right ventricle is normal in size and systolic function. Moderate mitral regurgitation. Mild aortic regurgitation. Cardiovascular Laboratory Report (07/03/2022) FINAL IMPRESSIONS: Mild coronary artery disease Moderately reduced global left ventricular systolic function by noninvasive imaging ECG 08/24/2022 showed sinus rhythm with frequent PVCs. His QRS complex 124 ms. Assessment/Plan Diagnoses and all orders for this visit: Chronic systolic heart failure (CMS/HCC) - sacubitril-valsartan (Entresto) 97-103 mg tablet; Take 1 tablet by mouth two times daily. - Basic metabolic panel; Future - Transthoracic echo (TTE) complete; Future Coronary artery disease involving [place] coronary artery of [place] heart without angina pectoris Paroxysmal atrial fibrillation (CMS/HCC) Primary hypertension - sacubitril-valsartan (Entresto) 97-103 mg tablet; Take 1 tablet by mouth two times daily. - Basic metabolic panel; Future ICD (implantable cardioverter-defibrillator) in place Nonischemic cardiomyopathy (CMS/HCC) Kristy has nonischemic cardiomyopathy with concomitant mild nonobstructive coronary artery disease. He has chronic systolic heart failure and low ejection fraction despite optimization of medical therapy. his initial diagnosis was in June 2022. He is status post ICD placement in August 2022. His follow-up echocardiogram May 2023 showed ejection fraction 30 to 35%. Follow-up echocardiogram in November 2023 showed LVEF 40%. There was evidence of mitral, aortic and tricuspid regurgitation. Those were mild to moderate. He was also diagnosed to have paroxysmal atrial fibrillation based on device interrogation and was started on Eliquis for anticoagulation given elevated [id number] score. He is currently in NYHA class I symptoms. At this time I will continue to optimize medical therapy and increase Entresto to 97-103 mg twice daily. I will check a BMP in 2 to 4 weeks. Due to being on Eliquis and having mild CAD I have stopped aspirin to reduce the risk of bleeding. I will plan on seeing him in follow-up in 6 months with an echocardiogram to follow-up on effective therapy change. Follow up in about 6 months (around 01/01/2025). Boris Kim MD OFFICE VISIT Observed: 07/03/2024 10:15 AM Status: COMPLETED Source: [facility] [id number] Kristy Doherty 10/1955 M Date Provider Department Center 07/03/2024 367-BORIS KIM CARD [facility] Family History Problem Relation Age of Onset Other Mother Family Status - Relation Status Age at Mother Level of Service:[address] [place] OFFICE/OUTPATIENT ESTABLISHED MOD MDM 30 MIN ALLERGIES DATE TYPE / CODE NAME / CODE REACTION SEVERITY SOURCE 01/17/2024 DRUG INGREDI/29998423 3(SNOMED CT) OCTACOSANOL Unknown [facility] SYSTEMIC/2722666 06(SNOMED CT) NO KNOWN ALLERGIES [facility] ENCOUNTERS ADMIT/DISCHARGE ACCOUNT NUMBER ADMITTING ENCOUNTER CLASS LOCATION SOURCE 04/03/2025/04/03/20 [id number] Ambulatory Building:[facility] 03/26/2025/03/26/20 [id number] Ambulatory Buildin [id number] [facility] 03/26/2025 [id number] Ambulatory Building:[facility] 02/28/2025 [id number] Ambulatory Building:[facility] 02/26/2025/02/27/20 [id number] Ambulatory Building:[facility] 02/15/2025 [id number] Ambulatory Building:[facility] 02/07/2025 [id number] Ambulatory Building:[facility] 02/07/2025 [id number] Inpatient Encounter Building:[facility] 02/06/2025 [id number] Inpatient Encounter Building:HR T [facility] 02/06/2025/02/08/20 [id number] BORIS KIM Inpatient Encounter Building: [facility]oom: 3176Bed: 3176-[address] [facility] 02/05/2025/02/06/20 [id number] Ambulatory Building:[facility] 12/29/2024 [id number] Ambulatory Building:[facility] 12/12/2024/12/13/19 [id number] Ambulatory Building:[facility] 12/01/2024/12/02/19 [id number] Ambulatory Buildin [address] [facility] 11/30/2024 [id number] Ambulatory Building:[facility] 11/13/2024 [id number] Ambulatory Building:[facility] 11/07/2024/11/08/19 [id number] Ambulatory Building:[facility] 10/24/2024 [id number] Ambulatory Building:[facility] 09/21/2024 [id number] Ambulatory Building:[facility] 08/21/2024 [id number] Ambulatory Building:[facility] 08/11/2024 [id number] Ambulatory Building:[facility] 07/31/2024 [id number] Ambulatory Building:[facility] 07/03/2024 [id number] Ambulatory Building:[facility] 07/03/2024/07/03/20 24 [id number] Ambulatory Building:[facility] 06/20/2024 [id number] Ambulatory Building:[facility] 06/12/2024 [id number] Ambulatory Building:[facility] 06/02/2024 [id number] Ambulatory Building:[facility] 05/31/2024 [id number] Ambulatory Building:[facility] 05/03/2024 [id number] Ambulatory Building:[facility] 04/25/2024/04/25/20 [id number] Ambulatory Building:[facility] 04/19/2024 [id number] Ambulatory Building:[facility] PAYERS ENCOUNTER GUARANTOR PAYER SUBSCRIBER SOURCE 04/03/2025 Primary Insuranc e:[facility] MEDICARE ADVANTAGEPolicy Number: [id number] Date:2023-07-19 KRISTY DUNNB: [id number] [address] [address] [facility] 03/26/2025 Primary Insuranc e:[facility] MEDICARE ADVANTAGEPolicy Number: [id number] Date:2023-07-19 KRISTY DUNNB: [id number] [address] [address] [facility] 02/28/2025 Primary Insuranc e:[facility] MEDICARE ADVANTAGEPolicy Number: [id number] Date:2023-07-19 KRISTY DUNNB: [id number] [address] [address] [facility] 02/26/2025 Primary Insuranc e:[facility] MEDICARE ADVANTAGEPolicy Number: [id number] Date:2023-07-19 KRISTY VICTORIA: [id number] [address] [place] [address] [facility] 02/15/2025 Primary Insuranc e:[facility] MEDICARE ADVANTAGEPolicy Number: [id number] Date:2023-07-19 KRISTY DUNNB: [id number] [address] [place] [address] [facility] 02/07/2025 Primary Insuranc e:[facility] MEDICARE ADVANTAGEPolicy Number: [id number] Date:2023-07-19 KRISTY DUNNB: [id number] [address] [place] [address] [facility] 02/07/2025 Primary Insuranc e:[facility] MEDICARE ADVANTAGEPolicy Number: [id number] Date:2023-07-19 KRISTY DUNNB: [id number] [address] [place] [address] [facility] 02/07/2025 Secondary Insurance:[facility] MEDICARE ADVANTAGEPolicy Number: [id number] Date:2023-07-19 KRISTY DUNNB: [id number] [address] [place] [address] [facility] 02/06/2025 Primary Insuranc e:[facility] MEDICARE ADVANTAGEPolicy Number: [id number] Date:2023-07-19 KRISTY DUNNB: [id number] [address] [place] [address] [facility] 02/06/2025 Primary Insuranc e:[facility] MEDICARE ADVANTAGEPolicy Number: [id number] Date:2023-07-19 KRISTY DUNNB: [id number] [address] [place] [address] [facility] 02/05/2025 KRISTY DUNNB: [id number] [address] [address]Gjh: (HP) Primary Insurance:[facility] MEDICARE COMPLETEPolicy Number: [id number] Date:2024-07-19 KRISTY DUNNB: [id number] [address] [address] [facility] 12/29/2024 Primary Insuranc e:[facility] MEDICARE ADVANTAGEPolicy Number: [id number] Date:2023-07-19 KRISTY DUNNB: [id number] [address] [address] [facility] 12/12/2024 KRISTY DUNNB: [address] [address]Qrj: (HP) Primary Insurance:[employer] AARPPolicy Number: [id number] Date:2022-07-19 KRISTY DUNNB: [id number] [address] [address] [facility] 12/01/2024 Primary Insuranc e:[facility] MEDICARE ADVANTAGEPolicy Number: [id number] Date:2023-07-19 KRISTY DUNNB: [id number] [address] [address] [facility] 11/30/2024 Primary Insuranc e:[facility] MEDICARE ADVANTAGEPolicy Number: [id number] Date:2023-07-19 KRISTY DUNNB: [id number] [address] [address] [facility] 11/13/2024 Primary Insuranc e:[facility] MEDICARE ADVANTAGEPolicy Number: [id number] Date:2023-07-19 KRISTY DUNNB: [id number] [address] [address] [facility] 11/07/2024 Primary Insuranc e:[facility] MEDICARE ADVANTAGEPolicy Number: [id number] Date:2023-07-19 KRISTY VICTORIA: [id number] [address] [place] [address] [facility] 09/21/2024 Primary Insuranc e:[facility] MEDICARE ADVANTAGEPolicy Number: [id number] Date:2023-07-19 KRISTY DUNNB: [id number] [address] [place] [address] [facility] 08/21/2024 Primary Insuranc e:[facility] MEDICARE ADVANTAGEPolicy Number: [id number] Date:2023-07-19 KRISTY VICTORIA: [id number] [address] [place] [address] [facility] 08/11/2024 Primary Insuranc e:[facility] MEDICARE ADVANTAGEPolicy Number: [id number] Date:2023-07-19 KRISTY VICTORIA: [id number] [address] [place] [address] [facility] 07/31/2024 Primary Insuranc e:[facility] MEDICARE ADVANTAGEPolicy Number: [id number] Date:2023-07-19 KRISTY VICTORIA: [id number] [address] [place] [address] [facility] 07/03/2024 Primary Insuranc e:[facility] MEDICARE ADVANTAGEPolicy Number: [id number] Date:2023-07-19 KRISTY VICTORIA: [id number] [address] [place] [address] [facility] 07/03/2024 Primary Insuranc e:[facility] MEDICARE ADVANTAGEPolicy Number: [id number] Date:2023-07-19 KRISTY VICTORIA: [id number] [address] [place] [address] [facility] 04/25/2024 Primary Insurance:[employer] MEDICAREPolicy Number: [id number] Date:2022-07-19 KRISTY VICTORIA: [id number] [address] [address] [facility]
[2025-04-18] VITALS (7 sets, daily range): BP systolic 62–96; BP diastolic 40–70; PULSE 0–93; TEMP 36.8; O2SAT 93–97; BMI 28.1
--- NOTE | 2025-04-18 23:15 | ECG_ITS ---
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 Measurements Intervals [place] Rate: 92 P: 39 SC: 206 QRS: 13 QRSD: 112 T: 90 QT: 366 QTc: 416 Interpretive Statements 1100 Sinus rhythm 1570 with occasional ventricular premature complexes 3234 Anteroseptal myocardial infarction, age undetermined 8101 Low QRS voltage in limb leads 9150 abnormal ECG Compared to ECG 07/01/2022 20:01:10 Myocardial infarct finding now present Low QRS voltage now present Possible ischemia no longer present Electronically Signed On 04-19-2025 11:45:26 EDT by BORIS KIM M.D.
--- NOTE | 2025-04-18 23:26 | ED.CHESTPAI1 ---
HPI - Chest Pain General Chief Complaint: Chest Pain Stated Complaint: CHEST PAINS Time Seen by Provider: 04/18/25 23:20 Source: patient and family Mode of arrival: walk-in History of Present Illness HPI narrative: past history of cardiomyopathy and a. fib. Has AICD in place and recent placement of Watchman. Developed chest pain about an hour ago that radiated to his back. Pain still present but easing up. No nausea or dyspnea. His BPs have been running low for past 2 weeks. He is on Entresto, fatxiga, metoprolol and aldactone as well as plavis and ASA Related Data Home Medications ?Medication ?Instructions ?Recorded ?Confirmed albuterol sulfate 90 mcg/actuation 2 inh inhalation Q4H PRN shortness 01/01/23 01/01/23 aerosol inhaler of breath or wheezing aspirin 81 mg tablet,delayed 81 mg PO DAILY 01/01/23 01/01/23 release (Adult Aspirin Regimen) atorvastatin 40 mg tablet 40 mg PO QPM 01/01/23 01/01/23 dapagliflozin propanediol 10 mg 10 mg PO DAILY 01/01/23 01/01/23 tablet (Farxiga) dupilumab 100 mg/0.67 mL 300 mg subcut QWEEK 01/01/23 01/01/23 subcutaneous syringe fluticasone 500 mcg-salmeterol 50 1 inh inhalation Q12H 01/01/23 01/01/23 mcg/dose blistr powdr for inhalation metoprolol succinate 50 mg 50 mg PO DAILY 01/01/23 01/01/23 tablet,extended release 24 hr sacubitril 24 mg-valsartan 26 mg 1 tab PO BID 01/01/23 01/01/23 tablet spironolactone 25 mg tablet 25 mg PO DAILY 01/01/23 01/01/23 Allergies Allergy/AdvReac Type Severity Reaction Status Date / Time No Known Drug Allergies Allergy Verified 04/18/25 23:20 Review of Systems ROS Status of ROS 10 or more systems reviewed and unremarkable except as noted in history and below [facility] Medical History (Updated 04/19/25 @ 05:39 by Valdemar Avila MD) Afib ?I48.91 - Unspecified atrial fibrillation (ICD-10) Presence of Watchman left atrial appendage closure device ?Z95.818 - Presence of other cardiac implants and grafts (ICD-10) Cardiac defibrillator in place ?Z95.810 - Presence of automatic (implantable) cardiac defibrillator (ICD-10) Pacemaker ?Z95.0 - Presence of cardiac pacemaker (ICD-10) Exam Constitutional Vital Signs, click to edit/add: Last Vital Signs Temp 98.3 F 04/18/25 23:13 Pulse 100 H 04/19/25 06:00 Resp 18 04/19/25 06:00 BP 83/61 L 04/19/25 06:00 Pulse Ox 98 04/19/25 05:50 O2 Del Method Room Air 04/18/25 23:50 O2 Flow Rate 2 04/18/25 23:50 Common normals: no apparent distress, average body habitus, oriented x3 and no limitations HENMT Common normals: normocephalic and head/scalp atraumatic Respiratory Common normals: normal respiratory effort, no retractions, no use of accessory muscles and clear to auscultation bilaterally Cardio Common normals: regular rate, regular rhythm, S1 normal heart sound and S2 normal heart sound GI Common normals: Normal to inspection, nondistended, normoactive bowel sounds present, soft to palpation and non-tender Extremity Common normals: normal to inspection and full ROM Neuro Common normals: oriented x3, CN's II-XII intact bilaterally, moves all extremities and no focal motor deficits Psych Appearance: grossly normal Course Vital Signs Vital signs: Vital Signs Temperature 98.3 F 04/18/25 23:13 Pulse Rate 85 04/18/25 23:13 Respiratory Rate 18 04/18/25 23:13 Blood Pressure 96/70 04/18/25 23:13 Pulse Oximetry 95 04/18/25 23:13 Temperature 98.3 F 04/18/25 23:13 Pulse Rate 100 H 04/19/25 06:00 Respiratory Rate 18 04/19/25 06:00 Blood Pressure 83/61 L 04/19/25 06:00 Pulse Oximetry 98 04/19/25 05:50 Oxygen Delivery Method Room Air 04/18/25 23:50 Oxygen Delivery Flow Rate 2 04/18/25 23:50 MDM - Chest Pain MDM Narrative Medical decision making narrative: patient presents with complaint of substernal chest pain radiating to his back and neck associated with diaphoresis and vomiting. past history of cardiomyopathy and A. fib. No history of coronary artery stents. 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 He has been hypotensive for 2 weeks. He has an AIDC in place and recent watchman procedure. His EKG is low voltage with nonspecific T changes. first troponin is normal and sodiumis 123. Discussed with alternative dispute resolution mediator director of marketing Dr Dai and she would like CTA of his chest before he is transferred to [place] his pain has improved from 6/10 to 4/10 with morphine. Because he is hypotensive only small amount of morphine given. serial troponin neg. CTA returned neg for aortic dissection. Mild enlarged heart size with small pleural effusion. Hazy airspace opacities right and left lower lobes may represent atelectasis and/or pneumonia. Clinically has no findings to support pneumonia. Not febrile, not short of breath. WBC normal. COVID and influenza swab ordered. Discussed with hospitalist at [facility] and patient accepted in transfer Lab Data Labs: Lab Results 04/18/25 04/19/25 04/19/25 Range/Units 23:25 01:30 05:30 WBC 8.9 (4.0-11.0) 10^3/uL RBC 4.55 L (4.70-6.10) 10^6/uL Hgb 14.6 (14.0-18.0) g/dL Hct 41.3 L (42.0-54.0) % MCV 90.8 (80.0-94.0) fL MCH 32.1 (25.9-34.0) pg MCHC 35.4 H (29.9-35.2) g/dL RDW 13.2 (11.0-15.0) % Plt Count 205 (150-450) 10^3/uL MPV 10.4 (9.5-13.5) fL Neut % (Auto) 72.3 (43.0-75.0) % Lymph % (Auto) 13.3 L (20.5-60.0) % [place] % (Auto) 13.8 H (1.7-12.0) % Eos % (Auto) 0.1 L (0.9-7.0) % Baso % (Auto) 0.3 (0.2-2.0) % Neut # (Auto) 6.4 (1.4-6.5) 10^3/uL Lymph # (Auto) 1.2 (1.2-3.8) 10^3/uL [place] # (Auto) 1.2 H (0.3-0.8) 10^3/uL Eos # (Auto) 0.0 (0.0-0.7) 10^3/uL Baso # (Auto) 0.0 (0.0-0.1) 10^3/uL Abs Immat Gran (auto) 0.02 (0.00-0.03) 10^3/uL Imm/Tot Granulo (auto) 0.2 (0.0-0.5) % Sodium 123 L* (136-145) mmol/L Potassium 4.1 (3.5-5.1) mmol/L Chloride 86 L (98-107) mmol/L Carbon Dioxide 25.4 (21.0-32.0) mmol/L Anion Gap 15.7 BUN 15.0 (7.0-18.0) mg/dL Creatinine 0.94 (0.70-1.30) mg/dL Est GFR ( Amer) >60 (>=60 mL/min/1.73m^2) Est GFR (Non-Af Amer) >60 (>=60 mL/min/1.73m^2) BUN/Creatinine Ratio 16.0 Glucose 114 H (74-106) mg/dL Calcium 10.4 H (8.5-10.1) mg/dL Troponin I High Sens 11.5 10.5 (4.0-76.1) pg/mL NT-Pro-B Natriuret Pep 332.0 (<=900.0) pg/mL Influenza Type A Ag Negative Influenza Type B Ag Negative SARS-CoV-2 Ag (CV2AG) Negative (NEGATIVE) Discharge Plan Discharge Chief Complaint: Chest Pain Clinical Impression: Chest pain, Acute hyponatremia, Acute hypotension Patient Disposition: [facility]
--- NOTE | 2025-04-18 23:31 | XR_ITS ---
[place] [id number] Patient Name: KRISTY VAZQUEZ MRN: [id number] date: 1955 Sex: M Assigned Patient Location: ER Current Patient Location: ER Accession/Order Number: [id number] Exam Date: 04/18/2025 23:35 Report Date: 04/18/2025 23:54 At the request of: FROY CLAY MD Procedure: XR chest 1V Plain film chest Single view HISTORY: Chest pain. COMPARISON: 09/05/2022 FINDINGS: SUPPORT DEVICES: None POSTSURGICAL CHANGES: Cardiac device remains intact. HEART: Within normal limits PULMONARY HAFSA: Within normal limits MEDIASTINUM: Unremarkable LUNGS AND PLEURA: Moderate left basilar pleural-parenchymal changes. BONY STRUCTURES: Degenerative change ADDITIONAL FINDINGS None XR/XR chest 1V IMPRESSION: Developing moderate left basilar pleural-parenchymal changes. Consider infiltrate/pneumonitis. Impression dictated by: Mayur Hollis M.D. 04/18/2025 11:54 PM Dictation [facility] Electronically authenticated by: [id number] Y Date: 04/18/2025 23:54
[2025-04-18 23:45] LABS: Hematocrit 41.3 % (42.0-54.0); Hemoglobin 14.6 g/dL (14.0-18.0); Immature Granulocytes Abs Auto 0.02 10^3/uL (0.00-0.03); Immature Granulocytes Pct Auto 0.2 % (0.0-0.5); Lymphocytes Absolute Auto 1.2 10^3/uL (1.2-3.8); Mean Corpuscular HGB Conc 35.4 g/dL (29.9-35.2); Mean Corpuscular Hemoglobin 32.1 pg (25.9-34.0); Mean Corpuscular Volume 90.8 fL (80.0-94.0); Platelet Count 205 10^3/uL (150-450); Red Blood Count 4.55 10^6/uL (4.70-6.10); White Blood Count 8.9 10^3/uL (4.0-11.0)
[2025-04-18] MEDS: 0.9 % SODIUM CHLORIDE 1,000 ML 1000 ML IV (23:50)
--- NOTE | 2025-04-18 23:56 | ECG_ITS ---
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 Measurements Intervals [place] Rate: 81 P: 64 ND: 208 QRS: -11 QRSD: 102 T: 79 QT: 380 QTc: 418 Interpretive Statements 1100 Sinus rhythm 1570 with occasional ventricular premature complexes 3234 Anteroseptal myocardial infarction, age undetermined 8100 Low QRS voltage 9150 abnormal ECG Compared to ECG 04/18/2025 23:15:33 No significant changes Electronically Signed On 04-19-2025 11:46:08 EDT by BORIS KIM M.D.
[2025-04-19] VITALS (72 sets, daily range): BP systolic 49–116; BP diastolic 34–75; PULSE 72–102; O2SAT 52–100
[2025-04-19] MEDS: MORPHINE SULFATE 2 MG/ML SYRINGE IV ×2 (00:04→00:22)
[2025-04-19] MEDS: ASPIRIN 81 MG TAB.CHEW 162 MG PO (00:05)
[2025-04-19] MEDS: ASPIRIN 81 MG TAB.CHEW PO (00:05)
[2025-04-19 00:07] LABS: Anion Gap 15.7; Blood Urea Nitrogen 15.0 mg/dL (7.0-18.0); Calcium 10.4 mg/dL (8.5-10.1); Carbon Dioxide 25.4 mmol/L (21.0-32.0); Chloride 86 mmol/L (98-107); Estimated GFR (African America >60 (>=60 mL/min/1.73m^2); Estimated GFR (Non-African Ame >60 (>=60 mL/min/1.73m^2); Glucose 114 mg/dL (74-106); NT Pro B Type Natriuretic Pept 332.0 pg/mL (<=900.0); Potassium 4.1 mmol/L (3.5-5.1)
[2025-04-19 00:13] LABS: Sodium 123 mmol/L (136-145)
--- NOTE | 2025-04-19 03:31 | PC.NURSE ---
[employer] tech contacted at 0210 to contact Chel Mckee to attempt to expedite the read.
[2025-04-19] MEDS: 0.9 % SODIUM CHLORIDE 1,000 ML 150 ML IV (04:00)
--- NOTE | 2025-04-19 04:25 | PC.NURSE ---
Pt has not urinated since [place]. Bladder scan done. It read 227. He states that he does not have to void. He is wearing a depends and it appears to be dry.
--- NOTE | 2025-04-19 04:56 | PC.NURSE ---
Vending Manager spoke with [facility] transfer line for Dr Avila request to speak with the hospitalist. Requested info faxed to transfer center at [phone].
[2025-04-19 05:54] LABS: SARS-CoV-2 Ag NEGATIVE (NEGATIVE)
--- NOTE | 2025-04-19 06:57 | PC.NURSE ---
assumed care for this pt, pt resting, shelter monitor in place
--- NOTE | 2025-04-19 07:20 | PC.NURSE ---
Seema called report to [facility]
--- NOTE | 2025-04-19 07:34 | PC.NURSE ---
pt urinates in urinal in bed, linens changed, pt placed in gown and gripper socks put on pt. pt resting comfortable
--- NOTE | 2025-04-19 08:44 | PC.NURSE ---
[facility] here for transport, Report given to Nitin EMT-P
== END 2025-04-19 09:04 | disposition short-term general hospital (02) ==
PROVIDERS: Emergency Provider Internal Medicine; PCP Family Medicine
DX: R07.9 Chest pain, unspecified (principal); I95.9 Hypotension, unspecified; E87.1 Hypo-osmolality and hyponatremia; I48.91 Unspecified atrial fibrillation; Z95.810 Presence of automatic (implantable) cardiac defibrillator; Z95.818 Presence of other cardiac implants and grafts; I42.9 Cardiomyopathy, unspecified; Z79.82 Long term (current) use of aspirin; Z79.899 Other long term (current) drug therapy
CPT/HCPCS: 36415; 71045; 71275; 80048; 83880; 84484; 85025; 87804; 87811; 93005; 96361; 96374; 96375; 99285; J2270; J2405; Q9967

== ENCOUNTER 2025-05-07 07:45 | Outpatient (OUT) | payer MEDICARE, SELFPAY ==
--- OUTSIDE RECORDS SUMMARY | 2025-04-19 10:46 | XMS_ITS | Encounter Summary ---
Author Organization [facility] Address [address] [place] [address] Care Team Providers Care Strategic Marketing Specialist Name Role Phone Rudy King MD Primary Care Provider [phone] Reason for Referral * Consultation (Routine) - Pending Review Specialty Diagnoses / Procedures Referred By Contact Referred To Contact Cardiopulmonary Rehab / CardioPulmonary Rehab Diagnoses Heart failure with reduced ejection fraction (CMS/HCC) Procedures ME OFFICE/OUTPATIENT NEW HIGH MDM 60 MINUTES Mitesh Vernon MD [address] [place] [address] Phone: tel: fax: [facility] [address] [place] [address] [place] [address] Phone: tel:[phone] fax:[phone] Referral ID Status Reason Start Date Expiration Date Visits Requested Visits Authorized [id number] Pending Review Specialty Services Required 05/03/2026 1 1 * (Emergency) - Pending Review Specialty Diagnoses / Procedures Referred By Contac t Referred To Contact Procedures ECG 12 lead Osito Kline MD [address] [place] [address] [place] [address] Phone: tel: fax: Referral ID Status Reason Start Date Expiration Date V isits Requested Visits Authorized [id number] Pending Review 04/23/2025 04/23/2026 1 1 * (Routine) - Pending Review Specialty Diagnoses / Procedures Referred By Contac t Referred To Contact Procedures ECG 12 lead Mitesh Vernon MD [address] [place] [address] Phone: tel: fax: Referral ID Status Reason Start Date Expiration Date V isits Requested Visits Authorized [id number] Pending Review 04/19/2025 04/19/2026 1 1 * (Routine) - Pending Review Specialty Diagnoses / Procedures Referred By Contac t Referred To Contact Procedures ECG 12 lead Hakan Reyes PA-C [address] [place] [address] Phone: tel: fax: Referral ID Status Reason Start Date Expiration Date V isits Requested Visits Authorized [id number] Pending Review 04/19/2025 04/19/2026 1 1 Reason for Visit * Auth/Cert (Routine) Specialty Diagnoses / Procedures Referred By Contac t Referred To Contact Diagnoses CP Procedures NO CODED SERVICE Benedict Pascual MD [address] [place] [address] Phone: tel: fax: [facility] [place] [address] Phone: tel: fax: Referral ID Status Reason Start Date Expiration Date Visits Re quested Visits Authorized [id number] 1 1 Encounter Details Date Type Department Care Team (Late st Contact Info) Description 04/19/2025 10:46 AM EDT - 05/04/2025 4:33 PM EDT Hospital [facility] [address] [place] [address] Benedict Pascual MD [address] [place] [address] Osito Kline MD [address] [facility] [address] [place] [id number] Hay William MD [address] [place] [address] [place] [address] Pepe Anthony MD [address] [facility] [address] [place], [place] [id number] Dg Power MD [address] [facility] [address] [facility] [place] [address] Kaiden Rain MD [address] [place] [address] Chest pain (Primary Dx); Pericardial effusion; Right ventricular dysfunction; Paroxysmal atrial fibrillation (CMS/HCC); PVC (premature ventricular contraction); Chest pain, unspecified type; Heart failure with reduced ejection fraction (CMS/HCC); Generalized weakness; Other forms of angina pectoris; Hyponatremia; Hematoma of intravenous catheter site, sequela; Chronic systolic heart failure (CMS/HCC) Discharge Disposition: Home-Health Care [facility] (06) Social History Tobacco Use Types Packs/Day Years Used Date Smoking Tobacco: Former Cigarettes Smokeless Tobacco: Never Alcohol Use Standard Drinks/Week Comments Yes 14 (1 standard drink = 0.6 oz pu re alcohol) occasional [facility] Utilities Answer Date Recorded In the past 12 months has eflow gas, oil, or water [employer] threatened to shut off services in your home? No 04/19/2025 Humiliation, Afraid, Rape, and Kick questionnair e Answer Date Recorded Within the last year, have y ou been afraid of your partner or ex-partner? No 04/19/2025 Emotionally Abused Not on file 04/19/2025 Physically Abused Not on file 04/19/2025 Sexually Abused Not on file 04/19/2025 Overall Financial Resource Strain (CARDIA) Answe r Date Recorded How hard is it for you to pa y for the very basics like food, housing, medical care, and heating? Not hard at all 04/19/2025 Transportation Answer Date Recorded In the past 12 months, has l ack of transportation kept you from medical appointments or from getting medications? No 04/19/2025 Lack of Transportation (Non-Medical) Not on file 04/19/2025 Housing Stability Vital Sign Answer Figueroa e Recorded In the last 12 months, was t here a time when you were not able to pay the mortgage or rent on time? No 04/19/2025 Number of Times Moved in the Last Year Not on fi le 04/19/2025 At any time in the past [address] [facility], were you homeless or living in a custodial (including now)? No 04/19/2025 Hunger Vital Sign Answer Date Recorded Within the past 12 months, y ou worried that your food would run out before you got the money to buy more. Never true 04/19/20 25 Ran Out of Food in the Last Year Not on file 04/19/2025 Sex and Gender Information Value Date Recorded Sex Assigned at Male 02/21/2025 8:51 AM EDT Legal Sex Male 10:53 PM EDT Gender Identity Male 02/21/2025 8:51 AM EDT Sexual Orientation Heterosexual or Straight 12/2024 8:51 AM EDT documented as of this encounter Last Filed Vital Signs Vital Sign Reading Time Taken Comments Blood Pressure 102/65 05/04/2025 12:07 PM EDT Pulse 95 05/04/2025 12:07 PM EDT Temperature 36.9 C (98.4 F) 05/04/2025 12:07 PM EDT Respiratory Rate 21 05/04/2025 12:07 PM EDT Oxygen Saturation 98% 05/04/2025 12:07 PM EDT Inhaled Oxygen Concentration - - Weight 84.9 kg (187 lb 1.6 oz) 05/04/2025 5:00 A M EDT Height 172.7 cm (5' 8 ) 04/19/2025 10:49 AM EDT Body Mass Index 28.45 04/19/2025 10:49 AM EDT documented in this encounter Functional Status * Question Answer Date of Assessment Author BP 102/65 05/04/2025 12:[address] Pulse 95 05/04/2025 12:07 PM EDBeena Melgar Heart Rate Source Monitor 05/04/2025 12:07 PM Beena Alcaraz Patient Position Sitting 05/04/2025 12:07 PM EDT Beena Price * Whit Fall Risk Question Answer Date of Assessment Author History of Falling, Immediat e or Within 3 Months 0 05/04/2025 9:23 AM EDT Beena Price Secondary Diagnosis 15 05/04/2025 9:23 AM ED T Beena Price Ambulatory Aid 0 05/04/2025 9:23 AM EDT Beena Good Intravenous Therapy/Heparin Lock 0 05/04/20 25 9:23 AM EDT Beena Price Gait/Transferring 10 05/04/2025 9:23 AM EDT Beena Price Mental Status 0 05/04/2025 9:[address] Fall Risk Score 25 05/04/2025 9:23 AM EDT Beena Price * Christiano Scale Question Answer Date of Assessment Author Christiano No Risk Interventions Continue to assess patient according to level of care 05/04/2025 9:23 AM Beena Alcaraz Mild Interventions Off loaded ank les and feet;Applied barrier ointment;3 or less layers under the patient (i.e sheets, brief, taps, etc);Applied Mepilex on bony prominences;Reposition every 2 hours (make sure to document turns under activity tab);Evaluate nutritional status;Maintained bed at no more than 30 degrees 05/03/2025 8:50 PM EDT Myesha Schultz, RN Sensory Perceptions 4 05/04/2025 9 :23 AM EDT Beena Price Moisture 3 05/04/2025 9:23 AM EDBeena Chaudhary Activity 3 05/04/2025 9:23 AM EDBeena Chaudhary Mobility 3 05/04/2025 9:23 AM EDBeena Chaudhary Nutrition 3 05/04/2025 9:23 AM EDT Beena Price Friction and Shear 3 05/04/2025 9: 23 AM EDBeena Chaudhary Christiano Scale Score 19 05/04/2025 9: 23 AM EDT Beena Price * Patient's Stated Pain Goal Answer Date of Assessment Author No pain 05/04/2025 3:45 PM EDT Daisy Dior RN * High Fall Risk Interventions Question Answer Date of Assessment Author High Fall Risk Interventions Complete 05/04/2025 9 :23 AM EDT Beena Price * [place] Fall Risk Interventions Question Answer Date of Assessment Author [place] Fall Risk Interventions Complete 9:23 AM EDT Beena Price * Patient Requests Lesser Strength Medication Answer Date of Assessment Author Patient Request for Lesser Medication 05/03/2025 9:36 PM EDT Myesha Schultz, SAL * Pain Assessment Timer Question Answer Date of Assessment Author Restart Pain Assessment Timer Yes 05/04/2025 3:45 PM EDT Daisy Dior RN * Sepsis Model Scores Question Answer Date of Assessment Author Early Detection of Sepsis Score 0.35 4:15 PM EDT Jennifer Pickens Early Detection of Sepsis Score 9 4:31 PM EDT Jennifer Pickens * Pain Assessment Question Answer Date of Assessment Author Pain Location Wrist 05/04/2025 10:54 AM EDT Ashley Acosta COTA Pain Orientation Right 05/04/2025 10:5 4 AM EDT Ashley Acosta COTA Pain Interventions Declines 05/04/2025 9:23 AM EDT Beena Price Pain Descriptors Throbbing 05/03/2025 8:16 AM EDT Daisy Wylie RN Pain Onset Ongoing 05/03/2025 8:16 AM EDT Daisy Brewer RN Pain Frequency Constant/continuous 05/03/2025 8:16 AM EDT Daisy Dior RN Response to Interventions sleeping soundly 05/04/2025 1:13 AM EDT Myesha Schultz RN Pain Type Acute pain 05/04/2025 10:54 AM EDT Ahsley Acosta COTA Clinical Progression Not changed 05/04/2025 9:23 AM E Beean Bartlett Pain Assessment 0-10 05/04/2025 10:54 AM EDT Ashley Acosta COTA * Pain Score Answer Date of Assessment Author 5 - Moderate pain 05/04/2025 3:45 PM EDT Daisy Dior RN * MEWS SCORE Question Answer Date of Assessment Author MEWS SCORE 2 05/02/2025 4:01 PM EDT Chron iclyanet, Batchq * Patient Behaviors Answer Date of Assessment Author Restless 05/02/2025 12:25 PM EDT Little Hector RN * Deterioration Index Score Question Answer Date of Assessment Author Deterioration Index Score 32.52 05/04/2025 4:15 PM EDT Chronicskye, Batchq * Question Answer Date of Assessment Author Therapeutic Activity Time Entry 14 2:00 PM EDT Charla Yusuf OT * Head, Ears, Eyes, Nose, and Throat (HEENT) Question Answer Date of Assessment Author Head, Ears, Eyes, Nose, and Throat (WDL) X 05/04/2025 9:23 AM EDT Beena Price Eye Mildly impaired vision 05/04/2025 9:23 AM EDT Beena Price Eye Mildly impaired vision 05/04/2025 9:23 AM EDT Beena Price R Ear Mildly impaired hearing 05/04/2025 9:23 A M EDT Beena Price L Ear Mildly impaired hearing 05/04/2025 9:23 A M EDT Beena Price Nose Intact 05/02/2025 8:00 AM EDT Little Mancilla RN Throat Intact 05/02/2025 8:00 AM EDT Little Mancilla RN Tongue [place];Moist 05/02/2025 8:05 PM EDT Kannan Thomas RN Mucous Membrane(s) Moist;[place];Intact 05/03/2025 8:16 A M EDT Daisy Dior RN Head and Face Symmetrical 05/02/2025 8:05 PM EDT Kannan Martínez RN Neck Symmetrical 05/02/2025 4:00 AM EDT Linsey Boyd RN Lips Symmetrical;Intact 05/02/2025 8:00 AM EDT Little Hector RN * Question Answer Date of Assessment Author MAP (mmHg) 75 05/04/2025 12:[address] * Short Portable Mental Status Question Answer Date of Assessment Author What are the date, month, year? 0 10/17/202 5 9:23 AM EDT Beena Price What is the day of the week? 0 05/04/2025 9 :23 AM EDT Beena Price What is the name of this place? 0 9:23 AM EDT Beena Price What is your phone number? 0 05/04/2025 9:2 3 AM EDT Beena Price How old are you? 0 05/04/2025 9:23 AM EDT Beena Ferrara When were you born? 0 05/04/2025 9:23 AM ED T Beena Price Who is the current president? 0 05/04/2025 9:23 AM EDT Beena Price Who was the president before him? 0 025 9:23 AM EDT Beena Price What was your mother's maiden name? 0 05/04 9:23 AM EDT Beena Price Can you count backward from 20 by 3s? 0 9:23 AM EDT Beena Price Short Portable Mental Score 0 05/04/2025 9: 23 AM EDT Beena Price * Fall Risk Level Question Answer Date of Assessment Author Mobility zone Moderate (Yellow Zone) 05/04/2025 9:23 A M EDT Beena Price Sherman fall risk zone Moderate (Yellow Zone) 05/04/2025 9:23 AM EDT Beena Price Mental status questionaire zone Moderate (Yellow Zone) 05/04/2025 9:23 AM EDT Beena Price * Question Answer Date of Assessment Author Pulse rate from Plethysmogram (bpm) 87 05/03 8:09 AM EDT Daisy Dior, RN * Hearing Answer Date of Assessment Author IR[place]QUOIS 05/02/2025 2:22 PM EDT Daron Trevino, PT * Skin Integrity Answer Date of Assessment Author Patient had yellow/pinkish b ruising which was warm to the touch on right forearm and wrist from where patient had an IV or catheter line. All other visible areas were intact. 05/03/2025 2:24 PM EDT Charla Yusuf, OT * Edema Answer Date of Assessment Author Mild swelling on right forea rm which was elevated on a pillow at end of session. Patient was asked if he wanted a small ice pack and he declined stating ice didn't really help yesterday when it was applied. 05/03/2025 2:24 PM EDT Charla Yusuf, OT * Hand Dominance Answer Date of Assessment Author Right 05/02/2025 2:22 PM EDT Daron Trevino, PT * Skin Assessment Sign off Question Answer Date of Assessment Author Dual Sign-off - Admission/Transfer Shanta HUANG 05/02/2025 7:00 PM EDT Vero Mcintosh RN Dual Sign-off - Shift Hany Hector RN 05/02/2025 8:00 AM EDT Little Hector RN Any new wounds identified on admission/transfer? No 05/02/2025 7:00 PM EDT Annette Mcintosh RN Provider notified of new wound No 05/02/2025 7:00 PM EDT Vero Mcintosh RN * 6 Clicks (Mobility) Question Answer Date of Assessment Author Help from another person cli mbing 3-5 steps with a railing 3 05/02/2025 2:10 PM EDT Lucia Trevino, PT Help from another person tur tita from your back to your side while in a flat bed without using bedrails 3 05/02/2025 2:10 PM EDT Daron Alfaro, PT Help from another person mov ing from lying on your back to sitting on the side of a flat bed without using bedrails 3 05/02/2025 2:10 PM EDT Daron Trevino, P T Help from another person mov ing to and from a bed to a chair (including a wheelchair) 3 05/02/2025 2:10 PM EDT Daron Trevino P T Help from another person sta nding up from a chair using your arms (e.g. wheelchair or bedside chair) 3 05/02/2025 2:10 PM EDT Daron Trevino, PT Help from another person to walk in hospital room 3 05/02/2025 2:10 PM EDT Daron Trevino, P T Mobility 6 Clicks T-Score 18 05/02/2025 2:10 PM EDT Daron Trevino, PT * Question Answer Date of Assessment Author SpO2 98 05/04/2025 12:07 PM EDT Jason ne, Beena * Question Answer Date of Assessment Author BP 102/65 05/04/2025 12:07 PM EDT Jason ne, Beena Temp 98.4 05/04/2025 12:07 PM EDT Jason ne, Beena Temp src Temporal 05/04/2025 12:07 PM EDT Jason ne, Beena Pulse 95 05/04/2025 12:07 PM EDT Jason ne, Beena Resp 21 05/04/2025 12:07 PM EDT Jason ne, Beena Heart Rate Source Monitor 05/04/2025 12:07 PM EDT Beena Price BP Location Left wrist 05/04/2025 12:07 PM EDT Jason ne, Beena BP Method Automatic 05/04/2025 12:07 PM EDT Jason ne, Beena Patient Position Sitting 05/04/2025 12:07 PM EDT Beena Price * Question Answer Date of Assessment Author Level of Consciousness Alert 9:23 AM EDT Beena Price Cognition Follows commands;Appropriate judgement;Appropriate safety awareness 05/04/2025 9:23 AM EDT Beena Price Speech Clear 05/02/2025 8:05 PM EDT Kannan Newell RN L Pupil Reaction Nonreactive 05/02/2025 8:00 AM EDT Little Hector RN L Pupil Size (mm) 5 05/02/2025 8:0 0 AM EDT Little Hector RN R Pupil Reaction Brisk 05/02/2025 8:00 AM EDT Little Hector RN R Pupil Size (mm) 3 05/02/2025 8:0 0 AM EDT Little Hector RN LUE Motor Response Responds to commands 05/04/20 9:23 AM EDT Beena Price LURobert Sensation Full sensation 05/02/2025 8:00 AM EDT Little Hector RN LLE Motor Response Responds to commands 05/04/20 9:23 AM EDT Beena Price LLE Sensation Full sensation 05/02/2025 8:00 AM EDT Little Hector RN RUE Motor Response Responds to commands 05/04/20 9:23 AM EDT Beena Price RUE Sensation Full sensation 05/02/2025 8:00 AM EDT Little Hector, SAL RLE Motor Response Responds to commands 05/04/20 9:23 AM EDT Beena Price RLE Sensation Full sensation 05/02/2025 8:00 AM EDT Little Hector, SAL L Corneal Reflex Impaired 04/30/2025 4:00 PM EDT Marta Aparicio, RN Cough Reflex Present 04/30/2025 4:00 PM EDT Marta Aparicio, RN Gag Reflex Present 04/30/2025 4:00 PM EDT Marta Aparicio, RN R Corneal Reflex Intact 04/30/2025 4:00 PM EDT Marta Aparicio, RN L Blink Reflex Intact 04/30/2025 4:00 PM EDT Marta Aparicio, RN R Blink Reflex Intact 04/30/2025 4:00 PM EDT Marta Aparicio, RN R Hand Grasp Moderate 05/04/2025 9:23 AM EDT Beena Price L Hand Grasp Moderate 05/04/2025 9:23 AM EDT Beena Price R Foot Dorsiflexion Moderate 05/04/2025 9 :23 AM EDT Beena Price L Foot Dorsiflexion Moderate 05/04/2025 9 :23 AM EDT Beena Price R Foot Plantar Flexion Moderate 9:23 AM EDT Beena Price L Foot Plantar Flexion Moderate 9:23 AM EDT Beena Price R Pupil Shape Round 05/02/2025 8:00 AM EDT Little Hector RN L Pupil Shape Oval 05/02/2025 8:00 AM EDT Little Hector RN Neuro Symptoms Forgetful 05/03/2025 8:50 PM EDT Myesha Schultz RN Pupil Assessment Yes 05/02/2025 8:00 AM EDT Little Hector RN Hand Grasp/Motor Function/Sensation Assessment Grasp;Dorsiflexion;Juliana ntar flexion;Motor response;Sensation 05/04/2025 9:23 AM EDT Beena Price Facial Symmetry Symmetrical 05/02/2025 8:05 PM EDT Kannan Newell RN * Question Answer Date of Assessment Author Bilateral Breath Sounds Clear 05/04/20 9:23 AM EDT Beena Price R Breath Sounds Lower;Diminished;Clear 4:00 AM EDT Linsey Garcia RN L Breath Sounds Clear 05/02/2025 4:00 AM EDT Linsey Garcia RN Respiratory Pattern Normal 05/04/2025 9 :23 AM EDT Beena Price Chest Assessment Symmetrical 05/04/2025 9:23 AM EDT Beena Price Cough Dry 05/03/2025 8:16 AM EDT Daisy Dior RN Sputum Amount Small 04/30/2025 4:00 AM EDT Neftaly Henderson RN Sputum Color Clear 04/30/2025 4:00 AM EDT Neftaly Henderson RN Sputum Consistency Frothy;Thick 04/29/2025 4: 00 PM EDT Tiffanie Enamorado RN Respiratory Effort Unlabored 05/04/2025 9: 23 AM EDT Beena Price Respiratory Effort Characteristics Abdominal muscle use 04/27/2025 4:00 PM EDT Westley Olguin RN Respiratory Depth/Rhythm Regular 9:23 AM EDT Beena Price Dyspnea Occurrence With exertion 05/03/2025 8: 50 PM EDT Myesha Schultz RN * Question Answer Date of Assessment Author Cardiac Rhythm NSR 05/04/2025 9:23 AM EDT Beena Good Ectopy Premature ventricula r contractions 05/03/2025 8:50 PM EDT Myesha Schultz RN Ectopy Frequency Occasional 05/03/2025 8:50 PM EDT Myesha Barron RN Cardiac Regularity Regular 05/04/2025 9:23 AM EDT Beena Price Vocational Counselor Status On 05/04/2025 9:23 AM EDT Beena Price Telemetry Box Number [id number] 05/02/2025 4:00 AM E DT Linsey Garcia RN Jugular Venous Distention (JVD) No 05/04/2025 9:23 AM EDT Beena Price Cardiac Symptoms None 05/03/2025 8:16 AM EDT Daisy Wylie RN Heart Sounds S1, S2 05/04/2025 9:23 AM EDT Beena Stanley * Question Answer Date of Assessment Author Pacemaker Type Permanent 05/03/2025 8:16 AM EDT Daisy Dawson RN * Gastrointestinal Question Answer Date of Assessment Author Passing Flatus Yes 05/04/2025 9:23 AM EDT Beena Good Abdominal Tenderness No guarding 05/02/2025 8:05 PM E Kannan Tolliver RN Bowel Sounds (All Quadrants) Active 05/04/2025 9 :23 AM EDT Beena Price Gastrointestinal (WDL) WDL 05/04/2025 9:23 AM EDT Beena Price Abdomen Inspection Soft;Rounded 05/04/2025 9:23 AM EDT Beena Price Gastrointestinal Symptoms Gas 05/02/2025 8:00 AM EDT Little Hector RN Nausea Precipitating Factors Other (Comment) 9:02 AM EDT Tiffanie Enamorado RN Bowel Sounds All quadrants 05/04/2025 9:[address] * Peripheral Vascular Question Answer Date of Assessment Author Peripheral Vascular (WDL) WDL 05/04/2025 9:23 AM EDT Beena Price Generalized Edema Non-pitting 05/03/2025 8:16 AM EDT Daisy Dior RN Capillary Refill Less than/equal to 2 seconds (All extremities) 05/04/2025 9:23 AM EDT Beena Price Pulses Right radial;Left radial;Right posterior tibial;Left posterior tibial;Right pedal;Left pedal 05/04/2025 9:23 AM EDT Beena Price Cyanosis None 05/02/2025 8:05 PM EDT Kannan Thomas RN Edema Generalized 05/03/2025 8:16 AM EDT Daisy Brewer RN Peripheral Vascular Additional Assessments Right upper extremity;Right lower extremity;Left upper extremity;Left lower extremity 05/02/2025 4:00 AM EDT Linsey Garcia, SAL * RUE Neurovascular Assessment Question Answer Date of Assessment Author RUE Edema Other (Comment) 04/20/2025 8:05 AM EDT Yamila Garcia, SAL RUE Capillary Refill Less than/equal to 2 seconds 05/02/2025 8:05 PM EDT Kannan Newell RN RUE Color [place] 05/03/2025 8:50 PM EDT Myesha Garcia, SAL RUE Temperature/Moisture Warm 05/03/2025 8:50 PM EDT Myesha Schultz RN Right Brachial Pulse +2 04/27/2025 4:00 AM E Raffy Smith RN Right Radial Pulse +2 05/04/2025 9:23 AM EDT Beena Price Right Ulnar Pulse +2 05/02/2025 8:00 AM EDT Little Hector RN * LUE Neurovascular Assessment Question Answer Date of Assessment Author LUE Capillary Refill Less than/equal to 2 seconds 05/02/2025 8:05 PM EDT Kannan Newell RN LUE Color Appropriate for ethnicity 05/02/2025 8:05 PM EDT Kannan Newell RN LUE Temperature/Moisture Warm;Dry 05/02/2025 8:05 PM EDT Kannan Newell RN Left Radial Pulse +2 05/04/2025 9:23 AM EDT Beena Price * RLE Neurovascular Assessment Question Answer Date of Assessment Author RLE Capillary Refill Less than/equal to 2 seconds 05/03/2025 8:16 AM EDT Daisy Dior RN RLE Color Appropriate for ethnicity 05/03/2025 8:16 AM EDT Daisy Dior RN RLRobert Temperature/Moisture Warm;Dry 05/03/2025 8:16 AM EDT Daisy Dior RN Right Posterior Tibial Pulse +1 05/04/2025 9:23 AM EDT Beena Price Right Pedal Pulse +2 05/04/2025 9:23 AM EDT Beena Price RLRobert DVT Prophylaxis Sequential compressi on device 05/02/2025 4:00 AM EDT Linsey Garcia RN * LLE Neurovascular Assessment Question Answer Date of Assessment Author LLE Capillary Refill Less than/equal to 2 seconds 05/03/2025 8:16 AM EDT Daisy Dior RN LLE Color Appropriate for ethnicity 05/03/2025 8:16 AM EDT Daisy Dior RN LLE Temperature/Moisture Warm;Dry 05/03/2025 8:16 AM EDT Daisy Dior RN Left Posterior Tibial Pulse +1 05/04/2025 9:23 AM EDT Beena Price Left Pedal Pulse +2 05/04/2025 9:23 AM EDT Beena Ferrara DVT Prophylaxis Sequential compressi on device 05/02/2025 4:00 AM EDT Linsey Garcia RN * Musculoskeletal Question Answer Date of Assessment Author RUE Full movement 05/02/2025 8:05 PM EDT Kannan Martínez RN RLE Full movement 05/02/2025 8:05 PM EDT Kannan Martínez RN LUE Full movement 05/02/2025 8:05 PM EDT Kannan Martínez RN LLRobert Full movement 05/02/2025 8:05 PM EDT Kannan Martínez RN Musculoskeletal (WDL) WDL 05/04/2025 9:23 AM EDT Beena Price * Psychosocial Question Answer Date of Assessment Author Patient Behaviors/Mood Calm;Cooperative 05/02/2025 8:0 5 PM EDT Kannan Newell RN Needs Expressed Physical 05/02/2025 8:05 PM EDT Kannan Boogie RN Psychosocial (WD) WD 05/04/2025 9:23 AM EDT Beena Price Ability to Express Feelings Able to express 05/02/2025 8:05 PM EDT Kannan Newell RN Ability to Express Needs Able to express 05/02/2025 8: 05 PM EDT Kannan Newell RN Ability to Express Thoughts Able to express 05/02/2025 8:05 PM EDT Kannan Newell RN Ability to Understand Others Understands 05/02/2025 8:05 PM EDT Kannan Newell RN * Question Answer Date of Assessment Author Last BM Date [id number] 05/04/2025 12:48 PM EDT Luis Hicks, PCT Urine Color Yellow/straw 05/04/2025 12:48 PM EDT Luis Hicks, PCT Urine Appearance Clear 05/04/2025 12:48 PM EDT Luis Negrete, PCT Urine Odor No odor 05/04/2025 12:48 PM EDT Luis Hicks, PCT Stool Color Brown;Jones 05/04/2025 12:48 PM EDT Luis Hicks, PCT Stool Appearance Watery 05/04/2025 12:48 PM EDT Luis Negrete, PCT Bowel Incontinence No 05/04/2025 12:48 PM ED T Luis Negrete, PCT * Sherman Fall Risk Question Answer Date of Assessment Author History of Falling, Immediat e or Within 3 Months 0 05/04/2025 9:23 AM EDT Beena Price Secondary Diagnosis 15 05/04/2025 9:23 AM ED T Beena Price Ambulatory Aid 0 05/04/2025 9:23 AM EDT Beena Good Intravenous Therapy/Heparin Lock 0 05/04/20 9:23 AM EDT Beena Price Gait/Transferring 10 05/04/2025 9:23 AM EDT Beena Price Mental Status 0 05/04/2025 9:23 AM EDT Jason neBeena Fall Risk Score 25 05/04/2025 9:23 AM EDT Beena Price * Christiano Scale Question Answer Date of Assessment Author [place] No Risk Interventions Continue to assess patient according to level of care 05/04/2025 9:23 AM EDT Beena Price Mild Interventions Off loaded ank les and feet;Applied barrier ointment;3 or less layers under the patient (i.e sheets, brief, taps, etc);Applied Mepilex on bony prominences;Reposition every 2 hours (make sure to document turns under activity tab);Evaluate nutritional status;Maintained bed at no more than 30 degrees 05/03/2025 8:50 PM EDT Myesha Schultz, RN Sensory Perceptions 4 05/04/2025 9 :23 AM EDT Beena Price Moisture 3 05/04/2025 9:23 AM EDT Beena Price Activity 3 05/04/2025 9:23 AM EDT Beena Price Mobility 3 05/04/2025 9:23 AM EDT Beena Price Nutrition 3 05/04/2025 9:23 AM EDT Beena Price Friction and Shear 3 05/04/2025 9: 23 AM EDT Beena Price Christian[place] Scale Score 19 05/04/2025 9: 23 AM EDT Beena Price * Charting Type Question Answer Date of Assessment Author Charting Type Shift assessment 05/04/2025 9:23 AM EDT Beena Price * RLE Assessment Question Answer Date of Assessment Author RLE Assessment [facility] 05/03/2025 2:33 PM EDT Rosi Marqueza, OT * LLE Assessment Question Answer Date of Assessment Author LLE Assessment [facility] 05/03/2025 2:33 PM EDT Dorene culver Charla, OT * Proprioception Question Answer Date of Assessment Author Proprioception No apparent deficits 05/02/2025 2:36 PM EDT Daron Trevino, PT * Cognition Question Answer Date of Assessment Author Deficits Fully aware of deficits 05/04/20 10:54 AM EDT Ashley Acosta GALAVIZ Communication Intact 05/04/2025 10:54 AM EDT Ashley Acosta GALAVIZ Orientation Level Oriented X4 05/04/2025 10: 54 AM EDT Ashley Acosta, GALAVIZ Overall Cognitive Status [facility] 025 10:54 AM EDT Ashley Acosta, GALAVIZ Arousal/Alertness Appropriate response s to stimuli 05/04/2025 10:54 AM EDT Ashley Acosta, GALAVIZ Attention Span Appears intact 05/04/2025 10:54 AM EDT Ashley Acosta, GALAVIZ Memory Appears intact 05/04/2025 10:54 AM EDT Ashley Acosta GALAVIZ Following Commands Follows all commands and directions without difficulty 05/04/2025 10:54 AM EDT Ashley Acosta, GALAVIZ Safety Judgment Good awareness of sa fety precautions 05/04/2025 10:54 AM EDT Ashley Acosta, GALAVIZ Awareness of Errors Good awareness of er rors made 05/04/2025 10:54 AM EDT Ashley Acosta GALAVIZ Problem Solving Able to problem solv e independently 05/04/2025 10:54 AM EDT Ashley Acosta GALAVIZ * Sensation Question Answer Date of Assessment Author Light Touch No apparent deficits 05/02/2025 2:36 PM E DT Daron Trevino, PT Sensation Comments Denies numbness/tingling 05/02/2025 2:36 PM EDT Daron Trevino, PT * Perception Question Answer Date of Assessment Author Inattention/Neglect Appears intact 05/02/2025 2:36 PM EDT Daron Trevino, PT Initiation Appears intact 05/02/2025 2:36 PM EDT Daron Alfaro, PT Motor Planning Appears intact 05/02/2025 2:36 PM EDT E Daron lam, PT Perseveration Not present 05/02/2025 2:36 PM EDT Daron Boone, PT * Vision - Basic Assessment Question Answer Date of Assessment Author Current Vision Wears glasses only f or reading 05/02/2025 2:24 PM EDT Daron Trevino, PT * Patient's Stated Pain Goal Answer Date of Assessment Author No pain 05/04/2025 3:45 PM EDT Daisy Dior RN * Cultural Requests During Hospitalization Answer Date of Assessment Author none 04/30/2025 8:00 AM EDT Jake Soto RN * Spiritual Requests During Hospitalization Answer Date of Assessment Author none 04/30/2025 8:00 AM EDT Jake Soto RN * Repositioned Answer Date of Assessment Author Turns self 05/04/2025 2:00 PM EDT Leonardo Price * Question Answer Date of Assessment Author Arterial Line MAP 1 (mmHg) 57 04/29/2025 8:0 0 AM EDT Tiffanie Enamorado RN Arterial Line BP 1 93/66 04/29/2025 8:00 AM EDT Tiffanie Enamorado RN * Genitourinary Question Answer Date of Assessment Author Urinary Frequency Adequate 05/04/2025 9:23 AM EDT Beena Price Male Genitalia Intact 05/02/2025 8:05 PM EDT Kannan Miller, SAL Genitourinary (WDL) WDL 05/04/2025 9:23 AM ED T Beena Price Genitourinary Symptoms None 05/02/2025 8:05 PM EDT Kannan Newell, SAL Suprapubic Tenderness No 05/02/2025 8:05 PM EDT Kannan Newell, SAL * Patient Monitoring Question Answer Date of Assessment Author Frequency of Checks Twice per hour, standard 9:23 AM EDT Beena Price * Prior Function Question Answer Date of Assessment Author Prior Functional Mobility Independent without device 05/02/2025 2:21 PM EDT Daron Trevino, PT History of Falls States only fall was here in hospital on 04/23 2 bed height unexpectedly high. Denies any other recent falls 05/02/2025 2:21 PM EDT Daron Trevino, PT Level of [place] Independent with A DLs and functional transfers;Independent with homemaking with ambulation 05/02/2025 2:21 PM EDT Daron Trevino, PT Receives Help From Family 05/02/2025 2: 21 PM EDT Daron Trevino, PT ADL Assistance Independent 05/02/2025 2:21 PM EDT Daron Trevino, PT Homemaking Assistance Independent 05/02/2025 2:21 PM EDT Daron Trevino, PT * ADL Question Answer Date of Assessment Author Bathing Assistance Minimal 05/02/2025 2:29 PM EDT Diana Beltran OT Grooming Assistance Stand by 05/02/2025 2:29 PM ED T Diana Beltran OT Bathing Deficit Right lower leg including foot;Left lower leg including foot 05/02/2025 2:29 PM EDT Diana Beltran OT UE Dressing Assistance Minimal 05/02/2025 2:29 PM EDT Diana Beltran OT LE Dressing Assistance Minimal 05/02/2025 2:29 PM EDT Diana Beltran OT LE Dressing Deficit Don/doff R sock;Don/doff L sock;Supervision/safet y;Increased time to complete 05/02/2025 2:29 PM EDT Diana Beltran OT Toileting Assistance with Device Minimal 05/02/2025 2:29 PM EDT Diana Beltran OT * Activity Tolerance Question Answer Date of Assessment Author Ambulation comments SBA during functiona l ambulation from EOB<>in-room sink with RW. No LOB noted. 05/04/2025 10:54 AM EDT Ashley Acosta COTA Stage II (METs 1.4-2.0) - Sitting 5-10 mins 05/03/2025 2:43 PM EDT Charla Yusuf O T Stage III (METs 2.0-3.0) - Sitting to Standing 20-30 mins 05/04/2025 10:54 AM EDT Ashley Acosta COTA Endurance Stage III 05/03/2025 2:43 PM EDT Charla Guadarrama, OT Activity Tolerance Comments Pt demo'd no SOB or increased fatigue during functional ambulation or dyn standing tasks (ADLs) 05/04/2025 10:54 AM EDT Ashley Acosta COTA * RUE Assessment Question Answer Date of Assessment Author MARYRobert Assessment X 05/03/2025 2:33 PM EDT Charla Marquez OT * LUE Assessment Question Answer Date of Assessment Author YESSICA Assessment WFL 05/03/2025 2:33 PM EDT Charla Marquez, CRUZ * Precautions Question Answer Date of Assessment Author Medical Precautions fall risk;telemetry;bed alarm;chair alarm;Purewick 05/04/2025 10:54 AM EDT Ashley Acosta COTA * Plan Question Answer Date of Assessment Author PT Plan Skilled PT 05/02/2025 12:39 PM EDT Daron Trevino, PT Treatment/Interventions Functional trans rocio training;LE strengthening/ROM;Endu raghavendra training;Bed mobility;Gait training;Balance training 05/02/2025 12:39 PM EDT Daron Trevino, PT PT Frequency 5 times per week 05/02/2025 12:3 9 PM EDT Daron Trevino, PT PT - Discharge Recommendations Placed Yes 05/02/2025 12:39 PM EDT Daron Trevino, PT PT Discharge Recommendations Patient is able to return to prior living environment 05/02/2025 12:39 PM EDT Daron Trevino, PT * Hand Function Question Answer Date of Assessment Author Gross Grasp Functional 05/03/2025 2:33 PM EDT Charla Guadarrama, OT Coordination Functional 05/03/2025 2:33 PM EDT Charla Guadarrama, OT * Plan Question Answer Date of Assessment Author Level of assist 1 assist 05/04/2025 10:54 AM EDT Ashley Acosta COTA Equipment Recommended rolling walker 05/03/2025 2:49 PM EDT Charla Yusuf OT Treatment Interventions ADL retraining;Patient/fam florencia training;Equipment evaluation/education;F unctional transfer training;Endurance training;Compensatory technique education 05/03/2025 2:49 PM EDT Charla Yusuf OT OT Frequency 5 times per week 05/03/2025 2:49 PM EDT Charla Yusuf OT OT - Discharge Recommendations Placed Yes 05/03/2025 2:49 PM EDT Charla Yusuf OT OT Plan Skilled OT 05/03/2025 2:49 PM EDT Charla Yusuf OT OT Discharge Recommendations Patient is able to return to prior living environment 05/03/2025 2:49 PM EDT Charla Yusuf OT * Safe Environment Question Answer Date of Assessment Author Arm Bands On ID;Fall 05/04/2025 9:23 AM EDT Beena Stanley Side Rails/Bed Safety 2/4 05/04/2025 9:23 AM EDT Beena Price Bed Alarms Off 05/04/2025 9:23 AM EDT Beena Stanley The Patient's Environment is Safe Yes 025 9:23 AM EDT Beena Price * High Fall Risk Interventions Question Answer Date of Assessment Author High Fall Risk Interventions Complete 05/04/2025 9 :23 AM GWENT Beena Price * Mobility Question Answer Date of Assessment Author Provider Notified Yes 05/03/2025 8:5 0 PM EDT Myesha Schultz RN Resting bed 05/04/2025 9:23 AM EDT Beena Price Activity Performed Resting in bed 05/04/2025 9: 23 AM EDT Beena Price Distance Ambulated (ft) 500 04/22/20 25 6:00 PM EDT Kelly Nuno, SAL Ambulation Response Tolerated fairly well 2024 8:16 AM EDT Daisy Dior, SAL Level of Assistance Modified independent , requires aide device or extra time 05/04/2025 9:23 AM GWENT Beena Price Head of Bed Elevated Self regulated 05/04/2025 9:23 AM EDT Beena Price Heels/Feet Heels elevated off bed 9:23 AM EDT Beena Price Range of Motion Active;All extremities 9:23 AM EDT Beena Price Anti-Embolism Devices Bilateral;Sequenti al compression devices, below knee 05/04/2025 9:23 AM EDT Beena Price Anti-Embolism Intervention Off 05/04/2025 9:23 AM EDT Beena Price Patient's mobility zone Zone 5 05/04/20 9:23 AM EDT Beena Price Positioning Frequency Able to turn self 05/04/20 9:23 AM EDT Beena Price * Hygiene Question Answer Date of Assessment Author Linen change Total linen change 05/03/2025 4:28 PM EDT Angie Yun NA Skin Care Per self 05/03/2025 8:16 AM EDT Daisy Brewer, SAL Hygiene Bathed;Mishel care 05/04/2025 11:3 3 AM EDT Ashley Acosta COTA Oral Care Teeth brushed;Mouth rinsed 05/04/2025 11:33 AM EDT Ashley Acosta COTA Level of Assistance Minimal assist 05/04/2025 1 1:33 AM EDT Ashley Acosta COTA Is Patient Total Care? No 11:33 AM EDT Ashley Acosta COTA Incontinence Protective Devices Absorbent pad 05/04/2025 9:23 AM EDT Beena Price CHG (Chlorhexidine Gluconate) Hygiene Bath 05/04/2025 11:33 AM EDT Ashley Acosta COTA * Precautions Question Answer Date of Assessment Author Precautions Aspiration;Fall;Bleeding 05/04/2025 9:23 AM EDT Beena Price * Family/Significant Other Communication Question Answer Date of Assessment Author Family/Significant Other Update Updated 8:00 PM EDT Raffy Smith, SAL * Comfort and Environment Interventions Question Answer Date of Assessment Author Special Mattress Low air loss and alternating pressure relief 05/02/2025 4:00 AM EDT Linsey Garcia, SAL Comfort Repositioned;Lotion (Comment);Powder (Comment);Gown changed 05/04/2025 11:33 AM EDT Ashley Acosta COTA Additional Comfort/Environmental Interventions Special mattress;TAPS 05/02/2025 4:00 AM Linsey Conway, SAL * Safety Equipment at Bedside Question Answer Date of Assessment Author Safety Equipment at Bedside Suction 05/02/2025 8: 00 AM Little Case RN * ADL Screening Question Answer Date of Assessment Author Do you snore or wake up gasp ing for air? No 04/19/2025 10:46 AM Karrie Nails RN Can you bring in your CPAP/B iPAP from home? N/A 04/19/2025 10:46 AM Karrie Nails RN Patient's Vision Adequate to Safely Complete Daily Activities Yes 04/19/2025 10:46 AM Karrie Zhu RN Patient's Judgment Adequate to Safely Complete Daily Activities Yes 04/19/2025 10:46 AM Karrie Zhu RN Patient's Memory Adequate to Safely Complete Daily Activities Yes 04/19/2025 10:46 AM Karrie Zhu RN Patient Able to Express Needs/Desires Yes 04/19/2025 10:46 AM Karrie Nails RN Dressing Independent 04/19/2025 10:46 AM Karrie Nails RN Grooming Independent 04/19/2025 10:46 AM Karrie Nails RN Feeding Independent 04/19/2025 10:46 AM Karrie Nails RN Bathing Independent 04/19/2025 10:46 AM Karrie Nails RN Toileting Independent 04/19/2025 10:46 AM Karrie Nails RN In/Out Bed Independent 04/19/2025 10:46 AM Karrie Nails RN Walks in Home Independent 04/19/2025 10:46 AM Karrie Zhu RN Weakness of Legs None 04/19/2025 10:46 AM Karrie Nails RN Weakness of Arms/Hands None 04/19/2025 10:46 A M Karrie Nails RN Hearing - Right Ear Functional 04/19/2025 10:46 AM Karrie Zendejas RN Hearing - Left Ear Functional 04/19/2025 10:46 AM Karrie Haque RN * Consults Question Answer Date of Assessment Author Spiritual Care Consult Needed No 04/19/2025 10:40 AM Karrie Nails RN Social Services Consult Needed No 04/19/2025 10:40 AM Karrie Nails RN * Therapy Consults Question Answer Date of Assessment Author PT Evaluation Needed 1 04/19/2025 10:46 AM Karrie Nails RN OT Evaluation Needed 1 04/19/2025 10:46 AM Karrie Nails RN VOCATIONAL TRAINER Evaluation Needed 2 04/19/2025 10:46 AM Karrie Nails RN * Assistive Devices Question Answer Date of Assessment Author Assistive Devices Other (Comment) 04/19/2025 10:46 AM Karrie Nails RN * Provider Notification Question Answer Date of Assessment Author Provider Role Attending physician 05/03/2025 1 0:27 AM Daisy Shaver RN Communication Comments Mag of 1.8 05/03/2025 6:05 AM GWENT Kannan Newell RN Provider Name Samara 05/03/2025 10:27 AM Daisy Shaver RN Method of Communication Epic Chat 05/03/20 25 10:27 AM Daisy Shaver RN Reason for Communication Other (Comment) 025 10:27 AM Daisy Shaver RN Response See orders 05/03/2025 10:27 AM Daisy Shaver RN Shift Event Fall 04/23/2025 3:35 AM Reginald Poon RN Notification Time [id number] 05/03/2025 10: 27 AM Daisy Shaver RN Fall Injury Type Skin tear;Ecchymosis 04/23/2025 3:35 AM Reginald Poon RN * AM-PAC 6 Clicks Question Answer Date of Assessment Author Total Score OT AMPAC 21 05/04/2025 10:54 AM EDT Ashley Acosta COTA Toileting, which includes us ing the toilet,bedpan,or urinal? 3 05/04/2025 10:54 AM EDT Katie Acosta, GALAVIZ Eating meals? 4 05/04/2025 10:54 AM EDT Ashley Mccall, GALAVIZ Bathing(Including washing,rinsing,drying)? 3 05/04/2025 10:54 AM EDT Katie Acosta COTA Taking care of personal groo whit such as brushing teeth? 4 05/04/2025 10:54 AM EDT Ashley Acosta COTA Putting on and taking off re gular lower body clothing? 3 05/04/2025 10:54 AM EDT Ashley Acosta C PHYSICIAN SCRIBE Putting on and taking off re gular upper body clothing? 4 05/04/2025 10:54 AM EDT Ashley Acosta C OTA * [place] Fall Risk Interventions Question Answer Date of Assessment Author [place] Fall Risk Interventions Complete 9:23 AM EDT Beena Price * Patient Requests Lesser Strength Medication Answer Date of Assessment Author Patient Request for Lesser Medication 05/03/2025 9:36 PM EDT Myesha Schultz, RN * OT Last Visit Question Answer Date [place] [id number] 05/04/2025 10:54 AM EDT Ashley Gonzalez COTA * PT Assessment Question Answer Date of Assessment Author PT Assessment Pt is 69 y.o male presenting with the above impairments, limiting safe and IND mobility. Pt able to tolerate within room ambulation distances, requiring increased time, effort, and CGA. Able to complete 5xSTS in 15.63 seconds indicating pt being at increased risk for falls. Pt would continue to benefit from skilled PT services throughout [facility] to address impairments and maximize safe and IND mobility. 05/02/2025 1:55 PM EDT Daron Trevino PT PT Education/Comments PT POC. Safety wit h mobility 05/02/2025 1:55 PM EDT Daron Trevino PT Prognosis Good 05/02/2025 1:55 PM EDT Daron Limon PT Impairments Decreased endurance;Impaired balance;Decreased mobility;Impaired hearing;Decreased skin integrity 05/02/2025 1:55 PM EDT Daron Trevino PT Medical Staff Made Aware Yes 05/02/2025 1:55 PM EDT Daron Trevino PT Evaluation/Treatment Tolerance Patient tolerated treatment well 05/02/2025 1:55 PM EDT Daron Trevino, PT * Static Standing Balance Question Answer Date of Assessment Author Static Standing-Balance Support Right upper extremity supported;Left upper extremity supported;With device 05/04/2025 10:54 AM Ashley Mcdowell COTA Static Standing-Level of Assistance Close supervision 05/04/2025 10:54 AM Ashley Mcdowell COTA Static Standing-Comment/Numbe r of Minutes Stood by the chair when brief applied. 05/03/2025 2:34 PM EDT Charla Yusuf OT * Toileting Question Answer Date of Assessment Author Toileting Comments Patient had a male Purewick. Tubing was disconnected and patient stood to place brief underneath patient. Patient needed some assist fastening brief. Patient was encouraged to start using a urinal or walking to bathroom with staff assist to incorporate more functional mobility and increase his independence with toileting. 05/03/2025 2:37 PM EDT Charla Yusuf OT Toileting Level of Assistance Minimum assistance 05/03/2025 2:37 PM EDT Charla Yusuf OT * Grooming Question Answer Date of Assessment Author Grooming Comments to complete facial care 05/04/2025 10:54 AM Ashley Mcdowell COTA Grooming Where Assessed Standing sinkside 05/04/2025 1 0:54 AM Ashley Mcdowell COTA Grooming Level of Assistance Setup 05/04/2025 10:54 AM EDAshley Menendez CO TA * UE Bathing Question Answer Date of Assessment Author UE Bathing Comments to complete UBB 05/04/2025 10:54 A M Ashley Mcdowell COTA UE Bathing Where Assessed Sitting sinkside 05/04/2025 10:54 AM EDAshley Menendez COTA UE Bathing Level of Assistance Setup 05/04/2025 10:54 AM EDT Ashley Acosta CO TA * LE Bathing Question Answer Date of Assessment Author LE Bathing Comments to complete LBB & mishel-hygiene 05/04/2025 10:54 AM EDAshley Menendez COTA LE Bathing Where Assessed Standing sinkside;Sitting sinkside 05/04/2025 10:54 AM EDAshley Menendez COTA LE Bathing Level of Assistance Setup 05/04/2025 10:54 AM EDAshley Menendez CO TA * UE Dressing Question Answer Date of Assessment Author UE Dressing Comments to doff/don gowns 05/04/2025 10:5 4 AM EDT Ashley Acosta COTA UE Dressing Where Assessed Sitting in chair 05/04/2025 10:54 AM EDT Ashley Acosta CO TA UE Dressing Level of Assistance Setup 05/04/2025 10:54 AM EDT Ashley Acosta CO TA * LE Dressing Question Answer Date of Assessment Author LE Dressing Comments to doff/don B/socks 05/04/2025 10 :54 AM EDT Ashley Acosta COTA LE Dressing Where Assessed Sitting in chair 05/04/2025 10:54 AM EDT Ashley Acosta CO TA LE Dressing Yes 05/03/2025 2:37 PM EDT Charla Guadarrama OT Sock Level of Assistance Setup 05/04/2025 10:54 AM EDT Ashley Acosta CO TA * Dynamic Standing Balance Question Answer Date of Assessment Author Dynamic Standing Balance-Level of Assistance Close supervision 05/04/2025 10:54 AM EDAshley Menendez COTA Dynamic Standing-Comments SBA for safety during LBB tasks at sink. 05/04/2025 10:54 AM EDT Ashley Acosta COTA Dynamic Standing-Balance Support With device;Unilateral upper extremity supported 05/04/2025 10:54 AM EDAshley Menendez COTA Dynamic Standing-Balance Forward lean 05/03/2025 2:34 PM EDT Charla Yusuf, O T * Dynamic Sitting Balance Question Answer Date of Assessment Author Dynamic Sitting Balance-Level of Assistance Distant supervision 05/04/2025 10:54 AM EDAshley Menendez COTA Dynamic Sitting-Comments Patient participated in LB dressing while sitting in chair. 05/03/2025 2:34 PM EDT Charla Yusuf, OT Dynamic Sitting-Balance Support Unilateral upper extremity supported;Feet supported 05/04/2025 10:54 AM EDT Ashley Acosta COTA Dynamic Sitting-Balance Lateral lean;Forward lean;Reaching for objects 05/04/2025 10:54 AM EDT Ashley Acosta COTA * Ambulation Question Answer Date of Assessment Author Ambulation Yes 05/02/2025 2:05 PM EDT Helen rt, Daron, PT * Stairs Question Answer Date of Assessment Author Stairs No 05/02/2025 2:05 PM EDT Daron Limon, PT * Coordination Question Answer Date of Assessment Author Movements are Fluid and Coordinated Yes 05/02 2:36 PM EDT Daron Trevino, PT * Other Activity Question Answer Date of Assessment Author Other Activity 1 Pt in recliner post session with call light & needs accessible. Chair alarm activated 05/04/2025 10:54 AM EDT Ashley Acosta COTA * General Question Answer Date of Assessment Author OT Diagnosis Decreased indepednen ce in functional tasks 2o chest pain. 05/02/2025 2:17 PM EDT Diana Beltran OT Patient Summary 69yoM presents as t/ f from OSH with chest pain radiating to neck and back. Pt hypotensive. Found to have a pericardial effusion suggestive of tamponade. Had paracentesis, with drain placed which has since been removed. On 04/23 pt fell out of hospital bed, reports the height was left up, sit head. Negative for any injuries. Pt developed LINDA, was t/f to MICU for CRRT. 05/02/2025 2:17 PM EDT Diana Beltran, CRUZ * Functional Standing Tolerance Question Answer Date of Assessment Author Time 2-3 min increments 05/04/2025 10 :54 AM Ashley Mcdowell COTA Activity ADL routine at sink 05/04/2025 1 0:54 AM Ashley Mcdowell COTA Functional Standing Tolerance Comments Pt stood intermittently to complete ADL tasks wit no s/s or c/o increased fatigue or SOB. 05/04/2025 10:54 AM EDAshley Menendez COTA * General Question Answer Date of Assessment Author Subjective I'm supposed to go home today. 05/04/2025 10:54 AM Ashley Mcdowell COTA Session Comments Patient participated in ADLS while seated in chair and performed two mobility tasks to improve his balance and endurance. Patient was encouraged to start going to the bathroom for toileting rather than using the Purewick to gradually improve his endurance. 05/03/2025 2:24 PM EDT Charla Yusuf OT Family/Caregiver Present No 05/04/2025 10:54 AM EDAshley Menendez COTA Response to Previous Treatment Patient with no complaints from previous session 05/04/2025 10:54 AM EDT Ashley Acosta COTA Treatment Duration (min) 39 05/04/2025 10:54 AM EDT Ashley Acosta COTA * Surface 1 Answer Date of Assessment Author Rachana rahman 05/02/2025 2:05 PM EDT Daron Trevino, PT * Device 1 Answer Date of Assessment Author No device 05/02/2025 2:05 PM EDT Daron Trevino, PT * Assistance 1 Answer Date of Assessment Author Contact guard;Minimal verbal cues 05/02/2025 2:0 5 PM EDT Daron Trevino, PT * Quality of Gait 1 Answer Date of Assessment Author Pt demos short, shuffled davis ps throughout with no assistive device. Mild instability with no major LOB. 05/02/2025 2:05 PM EDT Daron Trevino, PT * Comments/Distance (ft) 1 Answer Date of Assessment Author 10 ft 05/02/2025 2:05 PM EDT Daron Trevino, PT * General Question Answer Date of Assessment Author Subjective Maybe I like it rou . Session okay per RN. Pt supine in bed upon arrival, agreeable to PT session. Performed bed mobility, transfers, and amb this date. Returned to seated in recliner chair with call light/tray nearby. PT needs met prior to exit. RN aware of pt performance. 05/02/2025 2:10 PM EDT Daron Trevino PT PT Diagnosis Decreased functional mobility 05/02/2025 2:10 PM EDT Daron Trevino PT Patient Summary Pt is 69 y.o male presenting to [facility] as a transfer from [place] with c/o chest pain radiating to neck and back. Also hypotensive. Found pericardial effusion suggestive of tamponade. Pt had paracentesis which removed 300 mL and pigtail was placed, drain removed 04/20. Pt had HC 04/19. Echo 04/23 shows 20% EF with decreased right ventricle function. Had a fall on 04/23 after getting back into bed from EKG. Pt did strike his head. All imaging negative. Pt developed LINDA requiring few days of CRRT. 05/02/2025 2:10 PM EDT Uriel, Masyn, PT * Bed Mobility Question Answer Date of Assessment Author Bed Mobility No 05/03/2025 2:40 PM EDT Charla Guadarrama, OT * Bed Mobility 1 Question Answer Date of Assessment Author Bed Mobility Comments 1 Assist required to bring trunk upright 05/04/2025 10:54 AM EDT Ashley Acosta COTA Bed Mobility From 1 Supine 05/04/2025 10:54 AM E DT Ashley Acosta GALAVIZ Bed Mobility Type 1 To 05/04/2025 10:54 AM E DT Ashley Acosta GALAVIZ Bed Mobility to 1 Short sit 05/04/2025 10:54 AM EDT Ashley Acosta GALAVIZ Level of Assistance 1 Minimum assistance;Minimal verbal cues 05/04/2025 10:54 AM EDT Ashley Acosta GALAVIZ * Transfers Question Answer Date of Assessment Author Transfer Yes 05/03/2025 2:40 PM EDT Rosi Guadarramaa, OT * Transfer 1 Question Answer Date of Assessment Author Transfer Device 1 rolling walker 05/04/2025 10: 54 AM EDT Ashley Acosta COTA Trials/Comments 1 Patient stood up 3 times during the session with very close supervision for safety. 05/03/2025 2:40 PM EDT Charla Yusuf, OT Transfer From 1 Bed;Sit 05/04/2025 10:54 AM EDT Ashley Acosta COTA Transfer Type 1 To 05/04/2025 10:54 AM EDT Ashley Acosta GALAVIZ Transfer to 1 Stand 05/04/2025 10:54 AM EDT Ashley Acosta COTA Technique 1 Sit to stand 05/04/2025 10:54 AM EDT Ashley Acosta GALAVIZ Transfer Level of Assistance 1 Close supervision 05/04/2025 10:54 AM EDT Ashley Acosta GALAVIZ * Transfers 2 Question Answer Date of Assessment Author Transfer Device 2 rolling walker 05/04/2025 10: 54 AM EDAshley Menendez COTA Trials/Comments 2 cue for hand placeme nt with descent for safety 05/04/2025 10:54 AM EDT Ashley Acosta GALAVIZ Transfer From 2 Stand 05/04/2025 10:54 AM EDAshley Menendez GALAVIZ Transfer Type 2 To 05/04/2025 10:54 AM EDAshley Menendez COTA Transfer to 2 Sit;Chair with arms 05/04/2025 1 0:54 AM Ashley Mcdowell COTA Technique 2 Stand to sit 05/04/2025 10:54 AM EDAshley Menendez COTA Transfer Level of Assistance 2 Close supervision 05/04/2025 10:54 AM EDAshley Menendez GALAVIZ * Transfers 3 Question Answer Date of Assessment Author Transfer Device 3 rolling walker 05/04/2025 10: 54 AM EDAshley Menendez COTA Trials/Comments 3 SBA during STS throughout ADL routine in stance at sink. Cues for safety. 05/04/2025 10:54 AM Ashley Mcdowell COTA Transfer From 3 Stand 05/04/2025 10:54 AM Ashley Mcdowell COTA Transfer Type 3 To and from 05/04/2025 10:54 AM Ashley Mcdowell GALAVIZ Transfer to 3 Sit;Chair without arms 10:54 AM Ashley Mcdowell COTA Technique 3 Sit to stand;Stand t o sit 05/04/2025 10:54 AM EDAshley Menendez COTA Transfer Level of Assistance 3 Close supervision 05/04/2025 10:54 AM Ashley Mcdowell COTA * Static Sitting Balance Question Answer Date of Assessment Author Static Sitting-Balance Support Feet supported 05/04/2025 10:54 AM Ashley Mcdowell COTA Static Sitting-Level of Assistance Independent 05/04/2025 10:54 AM Ashley Mcdowell COTA Static Sitting-Comment/Number of Minutes Sitting in recliner chair in room. 05/03/2025 2:34 PM EDT Charla Yusuf, OT * Home Living Question Answer Date of Assessment Author Alternate Level Stairs-Rails Right 05/02/2025 2:19 PM EDT Daron Trevino, P T Alternate Level Stairs-Number of Steps 11-12 to second level where bedroom is located 05/02/2025 2:19 PM EDT Daron Trevino, PT Entrance Stairs-Rails None 05/02/2025 2:19 PM EDT Daron Trevino, PT Entrance Stairs-Number of Steps 2 05/02/2025 2:19 PM EDT Daron Trevino P T Home Access Stairs to enter with out rails 05/02/2025 2:19 PM EDT Daron Trevino PT Type of Home House 05/02/2025 2:19 PM EDT Daron Limon, PT Home Layout Two level;Bed/bath upstairs;Stairs to alternate level with rails;Laundry in basement 05/02/2025 2:19 PM EDT Daron Trevino PT Bathroom Shower/Tub Tub/shower unit 05/02/2025 2:19 PM EDT Daron Trevino, PT Bathroom Toilet Standard 05/02/2025 2:19 PM EDT Daron Wade, PT Bathroom Equipment None 05/02/2025 2:19 PM EDT Daron Trevino, PT Home Adaptive Equipment Crutches 05/02/2025 2:19 PM EDT Daron Trevino, Mariah Gustafson Lives With Significant other 05/02/2025 2:19 PM EDT Daron Trevino, PT Home Living Comments Enter from garage i nto main level with family room + 1/2 bath. 4 steps up into kitchen, 3 into living room. Full flight to bedroom/full bath. 05/02/2025 2:19 PM EDT Daron Trevino PT * OT Assessment Question Answer Date of Assessment Author OT Assessment/PHYSICIAN SCRIBE Summary Pt doing well, waiting to hear about d/c plan for . Pt was able to stand to complete ADLs, self-initiating rest breaks prn. No c/o pain in R/wrist or forearm weight bearing or otherwise. 05/04/2025 10:54 AM EDT Ashley Acosta COTA OT Education/Comments safety awareness, EC/WS 10:54 AM EDT Ashley Acosta COTA Strengths Living arrangement secure;Support and attitude of living partners 05/03/2025 2:45 PM EDT Charla Yusuf OT Barriers to Discharge Access to adaptive/assistive products 05/03/2025 2:45 PM EDT Charla Yusuf OT Prognosis Good 05/04/2025 10:54 AM EDT Ashley Acosta COTA OT Impairments Decreased ADL status;Decreased endurance;Decreased IADLs;Decreased functional mobility;Decreased trunk control for functional activities 05/03/2025 2:45 PM EDT Charla Yusuf, CRUZ Evaluation/Treatment Tolerance Patient tolerated treatment well 05/04/2025 10:54 AM EDT Ashley Acosta COTA Medical Staff Made Aware Yes 05/04/2025 10:54 AM EDT Ashley Acosta COTA * PT Last Visit Question Answer Date [place] [address] 05/02/2025 12:39 PM EDT Daron Wade, PT * Suicidal Ideation Question Answer Date of Assessment Author 1. Wish to be (Lifetime) No 04/19/2025 10:43 AM EDT Karrie Garza RN 2. Non-Specific Active Suici marianela Thoughts (Lifetime) No 04/19/2025 10:43 AM EDT Karrie Garza, SAL * Evant Coma Scale Question Answer Date of Assessment Author Best Eye Response Spontaneous 05/04/2025 9:23 AM EDT Beena Price Best Verbal Response Oriented 05/04/2025 9:23 AM E DT Beena Price Best Motor Response Follows commands 05/04/2025 9:23 A M EDT Beena Price Evant Coma Scale Score 15 05/04/2025 9:23 AM EDT Beena Price * Pain Assessment Question Answer Date of Assessment Author Pain Location Wrist 05/04/2025 10:54 AM EDT Ashley Acosta COTA Pain Orientation Right 05/04/2025 10:5 4 AM EDT Ashley Acosta COTA Pain Interventions Declines 05/04/2025 9:23 AM EDT Beena Price Pain Descriptors Throbbing 05/03/2025 8:16 AM EDT Daisy Wylie RN Pain Onset Ongoing 05/03/2025 8:16 AM EDT Daisy Brewer RN Pain Frequency Constant/continuous 05/03/2025 8:16 AM EDT Daisy Dior RN Response to Interventions sleeping soundly 05/04/2025 1:13 AM EDT Myesha Schultz RN Pain Type Acute pain 05/04/2025 10:54 AM EDT Ashley Acosta COTA Clinical Progression Not changed 05/04/2025 9:23 AM E Beena Bartlett Pain Assessment 0-10 05/04/2025 10:54 AM EDT Ashley Acosta COTA * Nutrition Question Answer Date of Assessment Author Diet Type Heart healthy 05/04/2025 9:[address] Feeding Able to feed self 05/04/2025 9:23 AM EDT Beena Price Appetite Fair 05/04/2025 9:23 AM EDT Beena Stanley * Respiratory Interventions Question Answer Date of Assessment Author Respiratory Interventions Performed Cough and deep breathe 05/04/2025 9:23 AM EDT Beena Price * Cough and Deep Breathe Question Answer Date of Assessment Author Cough and Deep Breathe Yes 05/04/2025 9:23 AM EDT Beena Price * Integumentary Question Answer Date of Assessment Author Skin Color Appropriate for race 05/02/2025 8:05 PM E Kannan Tolliver RN Skin Condition/Temp Warm;Dry 05/02/2025 8:05 PM ED Kannan Garay RN Skin Integrity Other (Comment) 05/04/2025 9:23 AM EDT Beena Price Skin Turgor Non-tenting 05/03/2025 8:16 AM EDT Daisy Brewer, SAL Integumentary (WDL) X 05/04/2025 9:23 AM ED Beena Chaudhary * GI Interventions Question Answer Date of Assessment Author GI Interventions Performed Laxative 04/30/2025 4:0 0 PM EDT Marta Aparicio, SAL * Question Answer Date of Assessment Author Which is your dominant hand? Right 04/24/2025 6 :00 PM EDT Ruby Rivera, SAL * Pain Score Answer Date of Assessment Author 5 - Moderate pain 05/04/2025 3:45 PM EDT Daisy Dior, SAL * Question Answer Date of Assessment Author Urinary Incontinence Yes 05/03/2025 6:35 AM E Kannan Tolliver RN * Question Answer Date of Assessment Author Emesis Color/Appearance Undigested food 04/26/2025 11: 10 AM EDT Tiffanie Enamorado, RN * Question Answer Date of Assessment Author Patient Goal for Treatment discharge to home 05/03/2025 8:00 AM EDT Daisy Dior R N * Patient Strengths/Problem Areas Question Answer Date of Assessment Author Strengths (Must Choose Two) Supportive Family;Communication Skills 04/19/2025 10:40 AM EDT Karrie Garza, SAL Problem Areas Health Problems;Physical Health 04/19/2025 10:40 AM EDT Karrie Garza, SAL * Patient Behaviors Answer Date of Assessment Author Restless 05/02/2025 12:25 PM EDT Little Hector, SAL * Environment of Care Checklist Question Answer Date of Assessment Author Were suicide precautions exp lained to the patient? Yes 05/04/2025 9:23 AM EDT Beena Price Potentially harmful objects out of patient reach? Yes 05/04/2025 9:23 AM EDT Beena Price Personal belongings secured? Yes 05/04/2025 9 :23 AM EDT Beena Price Patient dressed in hospital- provided attire only? Yes 05/04/2025 9:23 AM EDT Beena Price Patient care equipment (cord s, cables, call bells, lines, and drains) shortened, removed, or accounted for? Yes 05/04/2025 9:23 AM EDT Elizabeth Price Room secured by RN per shift? Yes 05/04/2025 9:23 AM EDT Beena Price * Care Plan - Safety Goals Question Answer Date of Assessment Author Free from fall injury Assess patient kristie quently for physical needs;Identify cognitive and physical deficits and behaviors that affect risk of falls;[place]aban fall precautions as indicated by assessment;Educate patient/family on patient safety, including physical limitations;Instruct patient to call for assistance with activity based on assessment;Modify environment to reduce risk of injury;Consider OT/PT consult to assist with strengthening/mobility 05/04/2025 9:23 AM EDT Beena Price * Acute Triage Question Answer Date of Assessment Author Triage Priority 3 05/02/2025 2:42 PM EDT Daron Wade, PT Triage Group Cardiovascular and pulmonology 05/02/2025 2:42 PM EDT Daron Trevino, PT * Modified Clary Question Answer Date of Assessment Author Activity 2 04/24/2025 3:43 PM EDT ZaMarco ventura RN Respiration 2 04/24/2025 3:43 PM EDT Marco Martinez RN Circulation 2 04/24/2025 3:43 PM EDT Marco Martinez RN Consciousness 2 04/24/2025 3:43 PM EDT Marco Cerna RN Oxygen Saturation 2 04/24/2025 3:43 PM EDT Marco Walters RN Modified Clary Score 10 04/24/2025 3:43 PM EDT Marco Walters RN * Modified Malnutrition Screening Tool (MST) Question Answer Date of Assessment Author Have you recently lost weigh t without trying? 0 04/19/2025 10:45 AM EDT Karrie Garza RN Have you been eating poorly because of a decreased appetite? 3 04/19/2025 10:45 AM EDT Karrie Garza R N On home tube feeding or TPN? 0 04/19/2025 1 0:45 AM EDT Karrie Garza RN Does patient have a stage 2- 4 pressure ulcer? 0 04/19/2025 10:45 AM EDT Karrie Garza RN * Weight Loss Score Answer Date of Assessment Author 0 04/19/2025 10:45 AM EDT Fransisco Garza RN * Malnutrition Score Answer Date of Assessment Author 3 04/19/2025 10:45 AM EDFransisco Saleem RN documented as of this encounter Mental Status * Evant Coma Scale Question Answer Entry Date Author Best Eye Response Spontaneous 05/04/2025 9:23 AM EDBeena Chaudhary Best Verbal Response Oriented 05/04/2025 9:23 AM E DT Beena Price Best Motor Response Follows commands 05/04/2025 9:23 A M EDT Beena Price Rosangela Coma Scale Score 15 05/04/2025 9:23 AM EDT Beena Price * Question Answer Entry Date Author West Agitation Sedation Scale (RASS) 0 05/02/2025 4:00 AM EDT Linsey Garcia RN * Modified Clary Question Answer Entry Date Author Activity 2 04/24/2025 3:43 PM EDT Marco Martinez RN Respiration 2 04/24/2025 3:43 PM EDT Marco Martinez RN Circulation 2 04/24/2025 3:43 PM EDT Marco Martinez RN Consciousness 2 04/24/2025 3:43 PM EDT Marco Cerna RN Oxygen Saturation 2 04/24/2025 3:43 PM EDT Marco Walters RN Modified Clary Score 10 04/24/2025 3:43 PM EDT Marco Walters RN documented in this encounter Discharge Instructions * Discharge Instr - Activity* Yamila Jacques LPN - 04/23/2025 2:20 PM EDT Activity as tolerated Fall risk precautions * Discharge Instr - Diet* Yamila Jacques LPN - 04/23/2025 2:21 PM EDT Regular diet, thin liquids * Appointments* Minna Fisher RN - 05/04/2025 12:52 PM EDT Scheduled Appointments -Please follow up with the providers listed above.?? -If you are unable to keep your appointments, please call to reschedule as soon as possible.?? -Failure to cancel/reschedule your appointments, may result in dismissal from your medical providers practice(s).? * Discharge Instr - Other Orders* Minna Fisher RN - 04/23/2025 2:23 PM EDT *Continue heart healthy diet and low sodium diet. *Monitor daily weights, fluid restriction 1.5-2Liters/day *Call office for weight gain of 2 pounds in 1 day or 5 pounds in 1 week, increased leg swelling, shortness of breath or shortness of breath at night and having to sleep sitting up taller/more pillowsthan normal or in recliner. [phone]. Cardiac Event Monitor Call [phone] at discharge to confirm [facility] Cardiac event monitor availability. Please go to [facility] after discharge prior to leaving hospital for Cardiac Event monitor placement/education. LABS: Have BMP and CBC drawn in 2-3 days and follow up with your PCP with results documented in this encounter Medications at Time of Discharge allopurinol (Zyloprim) 300 mg tablet Take 300 mg by mouth in the morning. aspirin 81 mg chewable tabletIndications :Presence of Watchman left atrial appendage closure device Chew 1 tablet (81 mg) with breakfast. 90 tablet 3 02/26/2025 6 atorvastatin (Lipitor) 40 mg tabletIndications :Coronary artery disease involving chemehuevi coronary artery of chemehuevi heart without angina pectoris Take 1 tablet (40 mg) by mouth at bedtime. 90 tablet 3 11/06/2024 clopidogrel (Plavix) 75 mg tabletIndications :Presence of Watchman left atrial appendage closure device Take 1 tablet (75 mg) by mouth in the morning. 90 tablet 3 02/26/2025 6 dapagliflozin propanediol (Farxiga) 10 mgIndications:Chr onic systolic congestive heart failure (CMS/HCC) Take 1 tablet (10 mg) by mouth once daily as directed. 90 tablet 3 05/08/2024 5 fluticasone (Flonase) 50 mcg/actuation nasal spray Administer 1 spray into each nostril two times daily. Shake gently. Before first use, prime pump. After use, clean tip and replace cap. fluticasone propion-salmetero L (Advair Diskus) 500-50 mcg/dose diskus inhaler Inhale 1 puff two times daily. 10/07/2022 spironolactone (Aldactone) 25 mg tabletIndications :Chronic systolic heart failure (CMS/HCC) Take 1 tablet (25 mg) by mouth in the morning. 90 tablet 3 08/18/2024 6 albuterol 90 mcg/actuation inhaler Inhale 1 puff 2 times daily. colchicine 0.6 mg tabletIndications :Heart failure with reduced ejection fraction (CMS/HCC) Take 1 tablet (0.6 mg) by mouth in the morning. 30 tablet 2 05/04/2025 6 doxycycline (Vibramycin) 100 mg capsuleIndication s:Heart failure with reduced ejection fraction (CMS/HCC) Take 1 capsule (100 mg) by mouth two times daily for 11 doses. Take with at least 8 ounces (large glass) of water, do not lie down for 30 minutes after 11 capsule 05/04/2025 5 Dupixent Syringe 300 mg/2 mL syringe injection Inject 300 mg under the skin every 14 (fourteen) days. 02/03/2025 furosemide (Lasix) 20 mg tabletIndications :Heart failure with reduced ejection fraction (CMS/HCC) Take 2 tablets (40 mg) by mouth if needed each day (for legs swelling or weight gain >2-3 lbs a day). 30 tablet 05/04/2025 5 metoprolol succinate XL (Toprol-XL) 25 mg 24 hr tabletIndications :Heart failure with reduced ejection fraction (CMS/HCC) Take 0.5 tablets (12.5 mg) by mouth in the morning. Do not crush or chew. 15 tablet 05/05/2025 5 documented as of this encounter Progress Notes * Karsten San, PT - 05/04/2025 3:20 PM EDT Physical Therapy Attempted treatment session this afternoon. Reports he is discharging this afternoon and would liketo Save his energy for home . Spoke with patient and his significant other, reports they now have their RW delivered and a hospital bed will be delivered to home. Will defer treatment session per patient request. Karsten San PT, DPT * Katy Joy, [employer] - 05/04/2025 3:05 PM EDT [facility] PROGRESS NOTE ADVANCED DIRECTIVES: HCPOA and Living Will on chart SURROGATE DECISION MAKER: Significant Other, Lilia CODE STATUS: Full code SUBJECTIVE Patient is a 69 y.o. male seen in follow up today for ongoing goals of care and symptom management.Pt has some pain in his right wrist today. No SOB or nausea. No chest pain. OBJECTIVE FINDINGS Vitals: 05/04/25 1207 BP: 102/65 Pulse: 95 Resp: 21 Temp: 36.9 ??C (98.4 ??F) SpO2: 98% Physical exam: Skin: No wounds visualized. Eyes: Sclera anicteric. No exudate. HENT: Oral mucosa pink and moist. No nasal exudate. Respiratory: Lungs CTA. Respirations unlabored. Cardiovascular: HRR. No LE edema. Gastrointestinal: BS+x4. Abd not distended. Musculoskeletal: Mild sarcopenia. No noted joint deformity. Neurologic: Alert and oriented. Speech is clear. No facial droop. Psychologic: Normal affect. No verbalized hallucination or delusions. PALLIATIVE DISCUSSION: Met with pt and Lilia at bedside. They report that pt will be fitted with a heart monitor then willbe discharged later today. A hospital bed is being delivered to the home. Reviewed outpatient palliative care and [facility] program. They have a pamphlet and will call if they are interested. Pt will have home healthcare also. ASSESSMENT Cardiogenic shock Encounter for palliative care Heart failure LINDA PLAN We will continue to support and follow. Thank you for allowing us to participate in this patient's care. Please contact us Wednesday through Wednesday 8:30am-5:00pm through [facility] or call [phone]. After Hours please call [phone]. * Igor Greene MD - 05/04/2025 2:52 PM EDT Images from the original note were not included. Nephrology Progress Note Patient : Kristy Doherty; 69 y.o. Location: 3140/3140-01 Attending: Benedict Pascual MD Admit Date: 04/19/2025 Hospital Day: 15 Reason for Consult: Severe LINDA in setting of Cardiogenic Shock Subjective: History of present illness: Kristy Doherty is a 69 y.o. male with PMHx significant for CAD, Atrial fibrillation s/p Watchman procedure, who was transferred from [place] with initial chief complaint of chest and back pain. The patient was noted to have a percardial effusion and echocardiogram and was taken for emergent pericar diocentesis with RHC and LHC. He had recurrence of his effusion with repeat echo demonstrating reduced RV function, RHC with elevated wedge pressures. Patient is seen and examined in MICU. He is currently receiving lasix 40 mg in addition to 40 received earlier. Plan to give 80 mg BID additional. Urine output this far has been minimal. He has a lanier catheter in place. Denies acute complaints incl uding chest pain and shortness of breath. Interval history: 05/04/25 Patient seen and examined sitting in his armchair this morning, afebrile and hemodynamically stable. No acute events overnight. Patient denies chest pain or shortness of breath. UOP 1.3 Celexa oral 40 L in last 24 hours. Labs reviewed. Creatinine decreased to 1.5. Objective: Input/Output: Intake/Output Summary (Last 24 hours) at 05/04/2025 1452 Last data filed at 05/04/2025 1248 Gross per 24 hour Intake 364 ml Output 2500 ml Net -2136 ml I/O last 3 completed shifts: In: 930 (11 mL/kg) [P.O.:730; I.V.:200 (2.4 mL/kg)] Out: 2250 (26.5 mL/kg) [Urine:2250 (0.7 mL/kg/hr)] Weight: 84.9 kg Vital signs: Temperature: Temp: 36.9 ??C (98.4 ??F) TMax: Temp (24hrs), Av.8 ??C (98.3 ??F), Min:36.7 ??C (98.1 ??F), Max:36.9 ??C (98.4 ??F) Respirations: Resp: 21 Pulse: Heart Rate: 95 BP: BP: 102/65 BP Range: Systolic (24hrs), Av , Min:102 , Max:122 Diastolic (24hrs), Av, Min:65, Max:75 Wt Readings from Last 3 Encounters: 05/04/25 84.9 kg (187 lb 1.6 oz) 04/03/25 84.8 kg (187 lb) 02/26/25 85.7 kg (189 lb) Physical Exam Constitutional: General: He is not in acute distress. Appearance: He is not ill-appearing. HENT: Head: Normocephalic and atraumatic. Eyes: General: No scleral icterus. Cardiovascular: Rate and Rhythm: Normal rate and regular rhythm. Heart sounds: Normal heart sounds. No murmur heard. No friction rub. No gallop. Pulmonary: Effort: Pulmonary effort is normal. No respiratory distress. Breath sounds: Normal breath sounds. No wheezing, rhonchi or rales. Abdominal: General: Abdomen is flat. Palpations: Abdomen is soft. Musculoskeletal: Right lower leg: No edema. Left lower leg: No edema. Skin: General: Skin is warm and dry. Neurological: General: No focal deficit present. Mental Status: He is alert and oriented to person, place, and time. Psychiatric: Mood and Affect: Mood normal. Current Medications: Scheduled Meds: allopurinol, 300 mg, oral, Daily aspirin, 81 mg, oral, Daily with breakfast atorvastatin, 40 mg, oral, Nightly clopidogrel, 75 mg, oral, Daily [Held by provider] colchicine, 0.6 mg, oral, BID dapagliflozin propanediol, 10 mg, oral, Once Daily doxycycline, 100 mg, oral, BID [Held by provider] furosemide, 80 mg, intravenous, q12h heparin (porcine), 5,000 Units, subcutaneous, BID metoprolol succinate XL, 12.5 mg, oral, Daily mometasone-formoterol, 2 puff, inhalation, BID [Held by provider] sennosides-docusate sodium, 1 tablet, oral, BID spironolactone, 25 mg, oral, Daily Continuous Infusions: PRN Meds: PRN medications: acetaminophen, albuterol, alteplase, glucose OR dextrose 50 % in water (D50W), guaiFENesin, heparin (porcine), ipratropium- albuteroL, melatonin, naloxone OR naloxone OR naloxone, ondansetron ODT OR ondansetron, oxyCODONE, simethicone, sodium chloride Outpatient Medications: Medication Documentation Review Audit Reviewed by Karrie Garza RN (Registered Nurse) on 04/19/25 at 1111 Medication Order Taking? Sig Documenting Provider Last Dose Status albuterol 90 mcg/actuation inhaler [id number] Inhale 1 puff 2 times daily. Historical ProviderMD Active allopurinol (Zyloprim) 300 mg tablet [id number] Yes Take 300 mg by mouth in the morning. German ProviderMD 04/18/2025 Morning Active amoxicillin (Amoxil) 500 mg tablet [id number] No Take 4 tablets (2,000 mg) by mouth 1 (one) time if needed (30-60 minute prior to dental procedures) for up to 20 doses. Patient not taking: Reported on 04/19/2025 Hay William MD Unknown Active aspirin 81 mg chewable tablet [id number] Yes Chew 1 tablet (81 mg) with breakfast. Hay William MD 04/18/2025 Morning Active atorvastatin (Lipitor) 40 mg tablet [id number] Yes Take 1 tablet (40 mg) by mouth at bedtime. Hay William MD 04/18/2025 Bedtime Active clopidogrel (Plavix) 75 mg tablet [id number] Yes Take 1 tablet (75 mg) by mouth in the morning. Hay William MD 04/18/2025 Morning Active dapagliflozin propanediol (Farxiga) 10 mg [id number] Yes Take 1 tablet (10 mg) by mouth once daily asdirected. Shania Chauhan CNP 04/18/2025 Morning Active Dupixent Syringe 300 mg/2 mL syringe injection [id number] No Inject 300 mg under the skin every 14 (fourteen) days. German ProviderMD 04/07/2025 Active fluticasone (Flonase) 50 mcg/actuation nasal spray [id number] Yes Administer 1 spray into each nostril two times daily. Shake gently. Before first use, prime pump. After use, clean tip and replace cap.German ProviderMD 04/18/2025 Bedtime Active fluticasone propion-salmeteroL (Advair Diskus) 500-50 mcg/dose diskus inhaler [id number] Yes Inhale 1puff two times daily. Historical Provider, MD 04/18/2025 Bedtime Active metoprolol succinate XL (Toprol-XL) 50 mg 24 hr tablet [id number] Yes Take 1 tablet (50 mg) by mouth once daily as directed. Do not crush or chew. Hay William MD 04/18/2025 Morning Active sacubitril-valsartan (Entresto) 97-103 mg tablet [id number] Yes Take 1 tablet by mouth two times daily. Hay William MD 04/18/2025 Bedtime Active spironolactone (Aldactone) 25 mg tablet [id number] Yes Take 1 tablet (25 mg) by mouth in the morning.Hay William MD 04/18/2025 Morning Active Labs: I have reviewed the patient's most recent labs as listed below: Chemistry: Lab Results Component Value Date NA 128 (L) 05/04/2025 K 3.7 05/04/2025 CL 94 (L) 05/04/2025 CO2 23 05/04/2025 ANIONGAP 15 05/04/2025 BUN 25 05/04/2025 CREATININE 1.58 (H) 05/04/2025 EGFR 47.1 (L) 05/04/2025 CALCIUM 7.3 (L) 05/04/2025 MG 2.0 05/04/2025 PHOS 3.1 05/04/2025 ALBUMIN 3.1 (L) 05/02/2025 PROT 5.4 (L) 05/02/2025 AST 54 (H) 05/02/2025 ALT 129 (H) 05/02/2025 BILITOT 0.7 05/02/2025 ALKPHOS 60 05/02/2025 Hematology & Iron studies: Lab Results Component Value Date WBC 6.04 05/04/2025 HGB 9.8 (L) 05/04/2025 HCT 28.3 (L) 05/04/2025 MCV 91.3 05/04/2025 PLT 192 05/04/2025 IRON 33 (L) 04/29/2025 TIBC 214 (L) 04/29/2025 UIBC 181.0 04/29/2025 IRONSAT 15 (L) 04/29/2025 FERRITIN 1,265.0 (H) 04/29/2025 Urine chemistry Lab Results Component Value Date PROTUR Negative 04/26/2025 CREATUR 83.0 04/26/2025 NAUR 92 04/26/2025 UREAUR 237 04/26/2025 Urinalysis & Microscopy: No results found for: COLORU , CLARITYU , SPECGRAVU , LOGAN , PROTUR , LEUKOCYTESU , NITRITEU , GLUCOSEU , KETONESU , BILIRUBINUR , UROBILINOGEN , BLOODU , RBCU , WBCU , SQUAMEPIU , MUCUSU , TRIPHOCRYU , CAOXALCRU , CAPHOSCRYU Urine Eosinophils: No components found for: UEOS Serology & Other labs: Lab Results Component Value Date ANATITER <1:40 04/19/2025 BNP: No results found for: BNP COLLIN: No results found for: COLLIN SPEP: Lab Results Component Value Date PROT 5.4 (L) 05/02/2025 UPEP: No components found for: LABPE C3: No results found for: C3 C4: No results found for: C4 MPO ANCA: No components found for: MPO PR3 ANCA: No components found for: PR3 Anti-GBM: No components found for: GBMABIGG Hep BsAg: No results found for: HEPBSAG Hep C AB: No results found for: HEPCAB Radiology: US neck Narrative: US NECK Clinical information: Neck swelling. Pain. Comparison: None. Impression: * No measurable abnormality, however, there appears to be some ill-defined hypoechoic tissue in the neck which could relate to soft tissue edema, hematoma not excluded. Consider cross-sectional imaging and duplex vascular ultrasound as indicated. Electronically signed: Virgilio Barillas MD. Assessment: Acute Kidney Injury, likely combination of ATN due to altered hemodynamics in setting of tamponade and contrast nephropathy - improving Electrolyte Abnormalities (Hyponatremia, Hypokalemia) Metabolic acidosis - resolved Hypervolemia - resolved HFrEF- RHC suggestive of biventricular failure. EF 20%, RV systolic function severely reduced per echo 04/23/2025 Atrial fibrillation s/p Watchman- on amiodarone Normocytic anemia Essential hypertension Plan: Patient with good UOP, no indication for diuretics from nephrology perspective Okay for DC per nephrology Femoral catheter removed without complication Electrolyte replacement as needed Continue to avoid nephrotoxic medications. Nephrology service will sign off please page with any questions Patient will follow-up with cardiology and primary care at [facility], [facility] but can consult nephrology at [facility] per primary teams. Igor Greene MD PGY 2 vice president of talent management [facility] Nephrology Pager: [phone] Phone (7am - 4pm): [phone] Cosigned by Karina Amaya MD at 05/05/2025 8:45 AM EDT Associated attestation - Karina Amaya MD - 05/05/2025 8:45 AM EDT By using the attestations below, the signing clinician agrees that I have read and verify that thedocumentation has been personally reviewed by me and ensure that the documentation accurately reflects the encounter. GC: I personally saw this patient on the day of the encounter, performed the gonzáles portion(s) of the service and participated in the management and confirm the resident's documentation. Please note there may be an additional personal documentation from me. * Alba Mena MD - 05/04/2025 12:23 PM EDT Cardiology Progress Note Cardiogenic shock Subjective Kristy Doherty is a 69 y.o. male with significant medical history of hypertension, paroxysmal atrial fibrillation s/p Watchman 02/06/2025, chronic HFrEf (25-30%) s/p ICD 08/2022, and CAD who presented to the hospital for chest pain. Patient reports having substernal chest pain, radiating to his back and neck since the prior evening. Patient reports that his blood pressure has been running in the low 90s over 70s over the past couple of weeks. Denies any recent fever or chills/cough. Patient reports being compliant with all his medications. Subjective: Patient was seen and examined at bedside this morning. Afebrile and HDS. His blood pressure is better this morning. Cr 1.58 compared to 1.76 yesterday. Urine output 800 cc since yesterday. Reports feeling well overall. Is working with PT and is able to ambulate without any dyspnea. He was concernedabout his neck swelling, underwent US neck. Likely hematoma, examined at bedside. No concerns of expanding hematoma. Resolving overtime. Objective: Patient Vitals for the past 24 hrs: BP Temp Temp src Pulse Resp SpO2 Weight 05/04/25 0800 107/67 36.8 ??C (98.2 ??F) Temporal 90 16 99 % -- 05/04/25 0500 -- -- -- -- -- -- 84.9 kg (187 lb 1.6 oz) 05/04/25 0405 -- -- -- -- -- -- 84.9 kg (187 lb 1.6 oz) 05/04/25 0400 102/70 -- -- 88 -- -- -- 05/03/25 2050 122/75 36.8 ??C (98.3 ??F) -- 96 18 99 % -- 05/03/25 1619 115/71 36.7 ??C (98.1 ??F) Temporal 93 17 -- -- 05/03/25 1300 115/74 36.6 ??C (97.9 ??F) Temporal 89 19 100 % -- Physical Examination: GENERAL: AOx3, in no acute distress. NECK: No JVD present. CARDIAC: RRR. No murmur, rubs, or gallops. RESPIRATORY: CTAB, no increased effort of breathing. ABDOMEN: Soft, nontender, nondistended. EXTREMITIES: No lower extremity edema, peripheral pulses are 2+ bilaterally. Relevant Lab Results Encounter Date: 04/19/25 ECG 12 lead Result Value Ventricular Rate 120 Atrial Rate 120 ME Interval 198 QRS DURATION 102 QT Interval 294 QTC CALCULATION(BAZETT) 415 P Welch 64 R-Welch 38 T Wave Welch 116 Impression Sinus tachycardia Low voltage QRS Septal infarct , age undetermined Abnormal ECG When compared with ECG of 19-APR-2025 18:24, Premature ventricular complexes are no longer Present Confirmed by Jeffy VERNON, MITESH Pruett ([id number]) on 04/23/2025 8:14:48 AM Lab Results Component Value Date TROPONINI 0.04 07/02/2022 Transthoracic echo (TTE) limited Result Date: 04/30/2025 1 1 [place] [facility] Heart Station [address] [place] [address] [phone] (fax) Echocardiogram-[facility] Name: KRISTY DOHERTY Study Date: 04/30/2025 07:02 AM B/P: 121 mmHg/100 mmHg HR: 87 bpm Date of : 1955 Location:[facility] Height: 68 in. Age: 69 year(s) Patient Room: 3217 Weight: 178 lb. Gender: Male Patient Status:InPt BSA: 1.94 m2 Indication: Limited; pericardial effusion, S/P 35 mm Watchman device FLX, Pericardiocentesis EF 20%, Pacemaker/AICD, Continuous hemodialysis Examination: Limited Echo/Limited Doppler, Color flow imaging Image Quality: Good Patient Consent: Procedure explained to patient Conclusions Left Ventricle: Global left ventricular systolic function is severely reduced. The EF is 20 % visually. Diffuse global hypokinesis. Right Ventricle: Mildly reduced right ventricular systolic function. Doppler studies suggest mildly elevated right sided pressures. Left Atrium: The left atrium appears enlarged. Mitral Valve: Mild mitral regurgitation. Aortic Valve: Mild aortic valve regurgitation. Tricuspid Valve: Moderate tricuspid regurgitation. Tricuspid Valve Measurements RVSP: 42 mmHg. Pericardium: No pericardial effusion. Measurements Left Ventricle Label Value Normal Value LVEF visual 20 % Tricuspid Valve Label Value Normal Value RA Pressure 8 mmHg RVSP 42 mmHg TR Vmax 2.93 m/s Great Vessels Label Value Normal Value IVC 2 cm (1.2cm - 2.3cm) Valvular Assessment LVOT 0.7 - 1.1 m/sec Aortic Valve 1.0 - 1.7 m/sec Mitral Valve 0.6 - 1.3 m/sec Tricuspid Valve 0.3 - 0.7 m/sec Pulmonic Valve 0.6 - 0.9 m/sec Regurgitation Mild Mild Moderate No Findings Left Ventricle: Global left ventricular systolic function is severely reduced. The EF is 20 % visually. Diffuse global hypokinesis. Allscored left ventricular wall segments are hypokinetic. No thrombus is identified in the left ventricle. Right Ventricle: Mildly reduced right ventricular systolic function. A pacemaker wire is seen in the right ventricle. Doppler studies suggest mildly elevated right sided pressures. Left Atrium: The left atrium appears enlarged. Right Atrium: The right atrium is mildly enlarged. Mitral Valve: The mitral valve is normal in mobility and thickness. Mild mitral regurgitation. Aortic Valve: Mildly sclerosed aortic valve cusps. Mild aortic valve regurgitation. The aortic valve is trileaflet. Tricuspid Valve: Normal tricuspid valve. Moderate tricuspid regurgitation. Tricuspid Valve Measurements RVSP: 42 mmHg. Pulmonic Valve: Normal pulmonary valve. No pulmonary regurgitation. Great Vessels: IVC: The IVC is normal in size. There is no inspiratory collapse of the IVC. Pericardium: No pericardial effusion. The Attending Physician has reviewed the examination with the fellow Procedure Staff Reading Group: [facility] Referring Physician: RUDY KING Property Consultant: June Brumfield RDCS,RVT, RN, BSN Ordering Physician: Wil Sotomayor MD Wall Motion Scores -1 - hyperkinesia, 0 - not evaluated, 1 - normal, 2 - hypokinesia, 3 - akinesia, 4 - dyskinesia Limited Echo (TTE) w/wo Limited Doppler, Color Flow, Imaging Agent, Strain, 3D, Bubble Study Result Date: 04/23/2025 1 1 [place] [facility] Heart Station [address] [place] [address] [phone] (fax) Echocardiogram-[facility] Name: KRISTY DOHERTY Study Date: 04/23/2025 07:26 AM B/P: 90 mmHg/74 mmHg HR: 111 bpm Date of : 1955 Location: [facility] Height: 68 in. Age: 69 year(s) Patient Room: 3183 Weight: 177 lb. Gender: Male Patient Status: InPt BSA: 1.94 m2 Indication: Limited; pericardial effusion, S/P 35 mm Watchman device FLX, S/P Pericardiocentesis, H/O 25-30%, Pacemaker/AICD Examination: Limited Echo/Limited Doppler, Color flow imaging Image Quality: Good Patient Consent: Procedure explained to patient Conclusions Left Ventricle: Global left ventricular systolic function is severely reduced. The EF is 20 % visually. Regional wall motion abnormalities (see diagram). Right Ventricle: Severely reduced right ventricular systolic function. A pacemaker wire is seen in the right ventricle. Doppler studies suggest moderately elevated right sided pressures (elevated pulmonary pressure). Mitral Valve: Mild to moderate mitral regurgitation. Aortic Valve: Mild aortic valve regurgitation. Tricuspid Valve: Moderate tricuspid regurgitation. Overall Conclusions: Decrease in right ventricular systolic function and increase in tricuspid insufficiency when compared to previous study. Measurements Left Ventricle Label Value Normal Value LVEF visual 20 % Tricuspid Valve Label Value Normal Value RA Pressure 8 mmHg RVSP 49 mmHg TR Vmax 3.22 m/s Great Vessels Label Value Normal Value IVC 2 cm (1.2cm - 2.3cm) Valvular Assessment LVOT 0.7 - 1.1 m/sec Aortic Valve 1.0 - 1.7 m/sec Mitral Valve 0.6 - 1.3 m/sec Tricuspid Valve 0.3 - 0.7 m/sec Pulmonic Valve 0.6 - 0.9 m/sec Regurgitation Mild MildMod Moderate Findings Left Ventricle: Global left ventricular systolic function is severely reduced. The EF is 20 % visually. Regional wall motion abnormalities (see diagram). The basal anterior, basal anteroseptal, basal inferoseptal, basal inferior, basal inferolateral, basal anterolateral, mid inferoseptal, mid inferior and mid inferolateral left ventricular wall segments are hypokinetic. The mid anterior, mid anteroseptal, mid anterolateral, apical anterior, apical septal, apical inferior, apical lateral and apex left ventricular wall segments are akinetic. Right Ventricle: The right ventricular free wall is akinetic in the distaltwo- thirds. Severely reduced right ventricular systolic function. A pacemaker wire is seen in the right ventricle. Doppler studies suggest moderately elevated right sided pressures (elevated pulmonary pressure). Mitral Valve: The mitral valve is normal in mobility and thickness. Mild to moderate mitral regurgitation. Aortic Valve: The aortic valve opens well. Mildly sclerosed aortic valve cusps. Mild aortic valve regurgitation. Tricuspid Valve: Normal tricuspid valve. Moderate tricuspid regurgitation. Pulmonic Valve: Pulmonary valve not visualized. Great Vessels: IVC: The IVC is normal in size. There is no inspiratory collapse of the IVC. Pericardium: There is a minimal pericardial effusion. Procedure Staff Reading Group: [facility] Referring Physician: RUDY KING Property Consultant: June Brumfield RDCS, RVT, RN, BSN Ordering Physician: FANI DENNEY Wall Motion Scores -1 - hyperkinesia, 0 - not evaluated, 1 - normal, 2 - hypokinesia, 3 - akinesia, 4 - dyskinesia Transthoracic echo (TTE) limited Result Date: 04/20/2025 1 1 [place] [facility] Heart Station [address] [place] [address] [phone] (fax) Echocardiogram-[facility] Name: KRISTY DOHERTY Study Date: 04/20/2025 01:28 PM B/P: 83 mmHg/58 mmHg HR: 96 bpm Date of : 1955 Location: [facility] Height: 68 in. Age: 69 year(s) Patient Room: 3183 Weight: 179 lb. Gender: Male Patient Status: InPt BSA: 1.95 m2 Indication: Limited; evaluate pericardial effusion, S/P 35 mm Watchman FLX, H/O EF 25 - 30 %, Pacemaker, Cardiomyopathy Examination: Limited Echo/Limited Doppler, Color flow imaging Image Quality: Good Patient Consent: Procedure explained to patient Conclusions Left Ventricle: Global left ventricular systolic function is severely reduced. The EF is 30 % visually. The septum is abnormal in its motion. Right Ventricle: Right ventricular systolic function appears normal. A pacemaker wire is seen in the right ventricle. Doppler studies suggest normal right sided pressures. Pericardium: No pericardial effusion. Measurements Left Ventricle Label Value Normal Value LVEF visual 30 %Tricuspid Valve Label Value Normal Value RA Pressure 3 mmHg RVSP 24 mmHg TR Vmax 2.29 m/s Great Vessels Label Value Normal Value IVC 1.1 cm (1.2cm - 2.3cm) Valvular Assessment LVOT 0.7 - 1.1 m/sec Aortic Valve 1.0 - 1.7 m/sec Mitral Valve 0.6 - 1.3 m/sec Tricuspid Valve 0.3 - 0.7 m/sec Pulmonic Valve 0.6 - 0.9 m/sec Regurgitation Trivial Trivial Trivial Findings Left Ventricle: Global left ventricular systolic function is severely reduced. The EF is 30 % visually. The septum is abnormal in its motion. All scored left ventricular wall segments are hypokinetic. Right Ventricle: Right ventricular systolic function appears normal. A pacemaker wire is seen in the right ventricle. Doppler studies suggest normal right sided pressures. Mitral Valve: The mitral valve is normal in mobility and thickness. Trivial mitral regurgitation. Aortic Valve: Mildly sclerosed aortic valve cusps. Trivial aortic valve regurgitation. Tricuspid Valve: Normal tricuspid valve. Trivial tricuspid regurgitation. Great Vessels: IVC: The IVC is normal in size. There is inspiratory collapse of the IVC. Pericardium: No pericardial effusion. Procedure Staff Reading Group: [facility] Referring Physician:RUDY KING Property Consultant: June Brumfield RDCS, RVT, RN, BSN Ordering Physician: VENU SAMANIEGO Wall Motion Scores -1 - hyperkinesia, 0 - not evaluated, 1 - normal, 2 - hypokinesia, 3 - akinesia, 4 - dyskinesia Transthoracic echo (TTE) limited Result Date: 04/19/2025 1 1 [place] [facility] Heart Station [address] [facility] [address] [phone] (fax) Echocardiogram-[facility] Name: KRISTY DOHERTY Study Date: 04/19/2025 02:13 PM B/P: / HR: Date of : 1955 Location: [facility] Height: 68 in. Age: 69 year(s) Patient Room: [facility] Weight: 182 lb. Gender: Male Patient Status: InPt BSA: 1.96 m2 Indication: pericardialeffusion, h/o 35mm Watchman FLX Examination: Limited Echo Image Quality: Fair Findings Pericardium: Moderate pericardial effusion baseline. Post pericardiocentesis there is minimal pericardial effusion. Procedure Staff Reading Group: [facility] Referring Physician: RUDY KING Property Consultant: SAMI Starr, RDCS Ordering Physician: VENU SAMANIEGO Complete Echo (TTE) w/wo Imaging Agent, Strain, 3D, Bubble Study Result Date: 04/19/2025 1 1 [place] [facility] Heart Station [address] [facility] [address] [phone] (fax) Echocardiogram-[facility] Name: KRISTY DOHERTY Study Date: 04/19/2025 12:46 PM B/P: 97 mmHg/71 mmHg HR: Date of : 1955 Location: [facility] Height: 68 in. Age: 69 year(s) Patient Room: 3183 Weight: 182 lb. Gender: Male Patient Status: InPt BSA: 1.96 m2 Indication: Chest Pain, s/p 35mm Watchman FLX Examination: Echocardiogram (Complete) ImageQuality: Fair Patient Consent: Procedure explained to patient Conclusions Left Ventricle: The left ventricle is normal size. Global left ventricular systolic function is normal. The EF is 60 % visually. Left ventricular wall thickness is normal. No regional wall motion abnormality. Right Ventricle:The right ventricle appears normal in size. Right ventricular systolic function appears normal. Doppler studies suggest normal right sided pressures. Left Atrium: Watchman device visualized . The left atrium appears normal in size. Aortic Valve: Mild aortic valve regurgitation. Tricuspid Valve: Mild tricuspid regurgitation. Pericardium: There is a moderate circumfrential pericardial effusion. There is also, significant mitral inflow variations consistent with early tamponade physiology. Measurements Left Ventricle Label Value Normal Value LVOT VTI 11.1 cm (18cm - 22cm) LVOT PGmax 3 mmHg LVEF visual 60 % LVOT PGmean 1 mmHg Right Ventricle Label Value Normal Value TAPSE 0.97 cm Aortic Valve Label Value Normal Value AV DVI 0.5 AV VTI 23.1 cm Mitral Valve Label Value Normal Value MV E Vmax 0.54 m/s MV A Vmax 0.79 m/s MV E/A 0.68 MV E/E' lateral 7.6 MV E' lateral 0.07 m/s Tricuspid Valve Label Value Normal Value RA Pressure 3 mmHg RVSP 30 mmHg TR Vmax 2.59 m/s Valvular Assessment LVOT 0.7 - 1.1 m/sec Aortic Valve 1.0 - 1.7 m/sec Mitral Valve 0.6 - 1.3 m/sec Tricuspid Valve 0.3 - 0.7 m/sec Pulmonic Valve 0.6 - 0.9 m/sec Regurgitation Mild No Mild No Max Velocity 0.81 m/sec 1.62 m/s 0.54m/sec 1.02 m/s Max Gradient 10.00 mmHg 4.00 mmHg Mean Gradient 5.00 mmHg Findings Left Ventricle: The left ventricle is normal size. Global left ventricular systolic function is normal. The EF is 60 % visually. Left ventricular wall thickness is normal. No regional wall motion abnormality. Right Ventricle: The right ventricle appears normal in size. Right ventricular systolic function appears normal. Doppler studies suggest normal right sided pressures. Left Atrium: Watchman device visualized .The left atrium appears normal in size. Right Atrium: The right atrium appears normal in size. Mitral Valve: The mitral valve is normal in mobility and thickness. No mitral regurgitation. Aortic Valve: Focal aortic cusp thickening is noted. Mild aortic valve regurgitation. Tricuspid Valve: Normal tricuspid valve. Mild tricuspid regurgitation. Pulmonic Valve: Normal pulmonary valve. No pulmonary regurgitation. Aorta: The aortic root exhibits normal size. Great Vessels: IVC: Normal size and course of the IVC. Pericardium: There is a moderate circumfrential pericardial effusion. There is also, significant mitral inflow variations consistent with early tamponade physiology. Procedure Staff Reading Group: [facility] Property Consultant: Bryanna Cazares RDCS Ordering Physician: HAKAN Canchola signed by MD Mitesh Vernon on 04/19/2025 at 01:44 PM Limited Transthoracic Echo (TTE) w/wo Contrast, Color Flow, Imaging Agent, Strain, 3D, Bubble Study Result Date: 02/07/2025 1 1 [place] [facility] Heart Station [address] [place] [address] [phone] (fax) Echocardiogram-[facility] Name: KRISTY DOHERTY Study Date: 02/07/2025 08:02 AM B/P: 118 mmHg/85 mmHg HR: 63 bpm Date of : 1955 Location: [facility] Height: 68 in. Age: 69 year(s) Patient Room: 3176 Weight: 186 lb. Gender: Male Patient Status: InPt BSA: 1.98 m2 Indication: Atrial Fibrillation, Pacemaker, s/p 35mm Watchman FLX Examination: Limited Echo, Color flow imaging, Lumason Contrast Image Quality: Fair Patient Consent: Procedure explained to patient Exam Details Contrast: I.V. dose of Lumason Conclusions Left Ventricle: The left ventricle is [...] Aortic Valve: Mild aortic valve regurgitation. Overall C onclusions: Due to suboptimal imaging Lumason contrast was administered for opacification and better delineation of endocardial borders. Well seated 35mm Watchman FLX PRO. Measurements Left VentricleLabel Value Normal Value LVDd, 2D 5.86 cm (4.2cm - 5.9cm) LVDs, 2D 5.21 cm (2.1cm - 4cm) IVSd, 2D 0.91 cm (0.6cm - 1.1cm) LVPWd, 2D 1.06 cm (0.6cm - 1cm) LV Mass, 2D ASE 232.58 g LV Mass Index, 2D ASE 117.5 g/m?? (50g/m?? - 102.4g/m??) RWT, MM 0.36 (0 - 0.42) LVSVI, 2D 20.7 ml/m2 Aorta Label Value Normal Value AoRoot, 2D 3.4 cm (1.4cm - 3.8cm) Valvular Assessment LVOT 0.7 - 1.1 m/sec Aortic Valve1.0 - 1.7 m/sec Mitral Valve 0.6 - 1.3 m/sec Tricuspid Valve 0.3 - 0.7 m/sec Pulmonic Valve 0.6 - 0.9 m/sec Regurgitation Mild trivMil Findings Left Ventricle: The left ventricle is normal size. Global left ventricular systolic function is severely reduced. EF range is estimated at 25 % -30 %. Leftventricular wall thickness is increased. Diffuse global hypokinesis. Right Ventricle: The right ventricle is normal in size. Normal right ventricular systolic function. A pacemaker wire is seen in the right atrium and right ventricle. Left Atrium: The left atrium is normal in size. Right Atrium: The right atrium is normal in size. Mitral Valve: There is nonspecific thickening of the mitral valve leaflet. Trvial to mild mitral regurgitation. Aortic Valve: Focal aortic cusp thickening is noted. Mild aortic valve regurgitation. Tricuspid Valve: Normal tricuspid valve. Pulmonic Valve: Normal pulmonary valve. Aorta: The aortic root exhibits normal size. Great Vessels: IVC: The IVC is normal in size. Pericardium: No pericardial effusion. Procedure Staff Reading Group: [facility] Referring Physician: RUDY KING Property Consultant: SAMI Starr, RDCS Ordering Physician: CHUCK FUNEZ Transesophageal echo (MASON) Result Date: 12/01/2024 1 [facility] Heart Station [address] [place] [address] [phone] (fax) Transesophageal Echocardiogram-[facility] Name: KRISTY DOHERTY Study Date: 12/01/2024 12:00 PM B/P: 134 mmHg/87 mmHg HR: 80 bpm Date of : 1955 Location: [facility] Height: 68 in. Age: 69 year(s) Patient Room: Weight: 194 lb. Gender: Male PatientStatus: OutPt BSA: 2.02 m2 Indication: Atrial Fibrillation, Pre-Watchman Examination: MASON, Color flow imaging Image Quality: Excellent Patient Consent: Informed, written consent was obtained for the procedure Exam Location: A MASON was performed in the [facility] without complications Anesthesia Pharyngeal anesthesia with viscous Lidocaine Conclusions Left Ventricle: The left ventricle is normal size. Global left ventricular systolic function is severely reduced. EF range is estimated at 25 % -30 %. Left ventricular wall thickness is normal. Diffuse global hypokinesis. Right Ventricle: The right ventricle appears normal in size. Normal right ventricular systolic function. Left Atrium: The left a trium is severely enlarged. Left Atrium Appendage: The left atrial appendage is monolobular. Normalleft atrial appendage, no thrombus seen. ROBB measutments [...] 50 micrograms Valvular Assessment LVOT 0.7 - 1.1m/sec Aortic Valve 1.0 - 1.7 m/sec Mitral Valve 0.6 - 1.3 m/sec Tricuspid Valve 0.3 - 0.7 m/sec Pulm onic Valve 0.6 - 0.9 m/sec Regurgitation Mod [...] atrium is severely enlarged. Left Atrium Appendage: Theleft atrial appendage is normal. The left atrial [...] is a minimal pericardial effusion. The Attending Ph ysician was present and personally reviewed the examination with the fellow Procedure Staff ReadingGroup: [facility] Referring Physician: RUDY KING Property Consultant: DORIAN Walker Ordering Physician: Hay William MD No nuclear medicine results found for the past 12 months Relevant Imaging Results US neck Narrative: US NECK Clinical information: Neck swelling. Pain. Comparison: None. Impression: * No measurable abnormality, however, there appears to be some ill-defined hypoechoic tissue in the neck which could relate to soft tissue edema, hematoma not excluded. Consider cross-sectional imaging and duplex vascular ultrasound as indicated. Electronically signed: Virgilio Barillas MD. Assessment: Cardiogenic shock, cardiac index 1.3 L/min/m2, likely secondary to acute heart failure exacerbation- resolved Acute right ventricular failure Melanie 0.72 < 1 suggestive of significant RV failure RHC suggestive of biventricular failure Acute on chronic heart failure with reduced ejection fraction s/p ICD placement, NYHA II/III 04/23/2025 echo with EF 20%, severely reduced RV systolic function, mild-moderate MR, mild AV regurg, mild TR, elevated RVSP 49 Non-oliguric acute kidney injury, worsening with decreased urinary output - improving Likely underlying cardiorenal syndrome: type1 Moderate circumferential pericardial effusion s/p RHC and pericardiocentesis (300cc removal) with drain placement on 04/19/25 - unclear etiology, cannot rule out acute pericarditis Pericardial drain removed 04/20 after resolution of effusion on 04/20 echo Repeat echo limited 04/23/2025 with EF 20%, severely reduced RV systolic function, and no inspiratory collapse of IVC (new findings), and minimal pericardial effusion TTE 04/30: EF 20%, mild MR, AR, moderate TR, no pericardial effusion Frequent PVC's and runs of NSVT on telemetry, on amiodarone gtt Paroxysmal A-fib [id number] 3 (heart failure, hypertension, age 65-74) s/p Watchman procedure on 02/06/2025 (due to prior bleeding with eliquis) Nonobstructive coronary artery disease Hyperlipidemia (unspecified) on lipitor 40 Plan: Off dobutamine since 04/30 Will slowly reintroduce GDMT as BP and kidney function tolerate: Continue aldactone 25, farxiga 10 today, add Toprol Xl 12.5 mg daily Continue holding entresto. Will up-titrate as tolerated by kidney function and blood pressure Off of CRRT, diuresis as per nephrology. Kidney function improved Continue colchicine 0.6 mg for 3 months Aggressive electrolyte replacement to maintain potassium > 4 and magnesium > 2 No objections to discharge from Cardiology stand point. Please call with any questions. Alba Mena MD Internal medicine resident, PGY-3 [facility] Cosigned by Mitesh Vernon MD at 05/04/2025 1:24 PM EDT Associated attestation - Mitesh Vernon MD - 05/04/2025 1:24 PM EDT By using the attestations below, the signing clinician agrees that I have read and verify that thedocumentation has been personally reviewed by me and ensure that the documentation accurately reflects the encounter. GC: I personally saw this patient on the day of the encounter with Dr. Vivar, Dr. Franco, Dr. Mooney, Niles Tolbert MS4 and Dr. Mena ,performed the gonzáles portion(s) of the service and participated in the management and confirm the resident's documentation. Please note there may be an additional personal documentation from me. * Griselda Bonilla RD - 05/04/2025 11:25 AM EDT Adult Nutrition Assessment: Name: Kristy Doherty Date: 1955 Date of Visit: 05/04/25 Admission Dx: Chest pain [R07.9] Reason for assessment: follow-up Information obtained from: patient, medical record, and RD record Medical History[1] Current Medications: allopurinol, 300 mg, oral, Daily aspirin, 81 mg, oral, Daily with breakfast atorvastatin, 40 mg, oral, Nightly clopidogrel, 75 mg, oral, Daily [Held by provider] colchicine, 0.6 mg, oral, BID dapagliflozin propanediol, 10 mg, oral, Once Daily doxycycline, 100 mg, oral, BID [Held by provider] furosemide, 80 mg, intravenous, q12h heparin (porcine), 5,000 Units, subcutaneous, BID metoprolol succinate XL, 12.5 mg, oral, Daily mometasone-formoterol, 2 puff, inhalation, BID [Held by provider] sennosides-docusate sodium, 1 tablet, oral, BID spironolactone, 25 mg, oral, Daily Labs: 0 Lab Value Date/Time POCGLU 88 04/28/2025 1344 BUN 25 05/04/2025 0418 CREATININE 1.58 (H) 05/04/2025 0418 NA 128 (L) 05/04/2025 0418 K 3.7 05/04/2025 0418 PHOS 3.1 05/04/2025 0418 MG 2.0 05/04/2025 0418 HGB 9.8 (L) 05/04/2025 0418 AMMONIA 56 04/29/2025 0238 WBC 6.04 05/04/2025 0418 CHOL 98 (L) 04/24/2025 0407 HDL 29 04/24/2025 0407 Allergies: Allergies[2] Nutrition Problems: Swallowing Assessment: Pt denies swallowing difficulty Mouth: pt denies chewing difficulty Abdominal Assessment: Pt denied any NVCD Last BM 05/03 I/O: Net fluid: -4.8 L Appetite: Improving while here Cognition: A&O x 4 Feeding Skills: Lives with , good access to food @ home Independently feeds self Skin Integrity: Traumatic skin tear left elbow Edema: Generalized non-pitting Other Factors: Pericardial effusion - s/p L&R heart cath + pericardiocentesis (04/20/25) ECHO (04/23/25) EF 20% CRRT 04/27-05/01 Nutrition Data/Clinical Indicators of Nutrition Status: Height: 172.7 cm (5' 8 ) Weight: 84.9 kg (187 lb 1.6 oz) BMI (Calculated): 28.46 Wt Readings from Last 10 Encounters: 05/04/25 84.9 kg (187 lb 1.6 oz) 04/03/25 84.8 kg (187 lb) 02/26/25 85.7 kg (189 lb) 02/07/25 84.6 kg (186 lb 9.6 oz) 11/13/24 88 kg (194 lb) 07/03/24 88.9 kg (196 lb) 01/06/24 87.5 kg (193 lb) 06/29/23 86.2 kg (190 lb) 05/11/23 85.3 kg (188 lb) 02/19/23 83 kg (183 lb) IBW: 70 kg UBW: 180-185 lbs per pt Weight change: Pt denies wt changes. endorses noticing some loss over the past few months. Pt denies changes to intakes or new medical issues/outside stressors that may have attributed to loss. 1 month: loss of 3.2 kg / 3.8% / not significant 6 months: loss of 6.4 kg / 7.3% / not significant Nutrition Assessment: 04/20/25: Pt and report following a regular diet at home. They have been conscientious of salt intake for the past few years due to both and pt health conditions. uses no added salt seasoning blends when cooking. They typically consume 1.5 meals/day. Most meals prepared @ home but they do eat out 1x/wk. L: pork chops, mashed potato, vegetable D: smaller meal (Wednesdays = ) 04/26/25: Pt reports intakes ~50% trays. S/o food tastes bland. Taking Boost [facility] BID (drinking ~1 carton total). 05/04/25: Pt reported that his appetite has gotten better while he has been here. Pt is eating breakfast here, which he does not do at home. Reported to eat good lunch and light dinner here. Pt reported he eats 50-75% at each meal. Pt requested to discontinue boost. Dietary Orders (From admission, onward) Start Ordered 05/04/25 1125 Special Kitchen Request Once Comments: Please discontinue boost 05/04/25 1125 05/02/25 1351 Special Kitchen Request Once Comments: Please send up an old-fashioned hot turkey sandwich with mashed potatoes and gravy with aregular sprite. RN approved. 05/02/25 1352 04/28/25 1456 Regular Diet Heart Healthy/HTN, CABG,Stroke, (2gNA, low fat, low cholesterol) Diet effective now Comments: Please do not send auto trays. Thank you! Question Answer Comment Room Service? Yes Fat restriction: Heart Healthy/HTN, CABG,Stroke, (2gNA, low fat, low cholesterol) 04/28/25 1455 Nutrition Risk: Low Nutrition Diagnosis: No nutrition diagnosis at this time Malnutrition Assessment: Per Registered Dietitian assessment and evaluation, patient does not currently meet criteria OR there is not enough information to support the diagnosis of malnutrition per the clinical criteria set by the Academy of Nutrition and Dietetics (AND) and the [place] Society of Enteral and Parenteral Nutrition (ASPEN). Nutrition Education: Reviewed heart failure diet education that was given on 04/20 and pt verbalized understanding and denied questions. Treatment Plan: Continue current diet Monitor intakes Discontinue boost per pt request Daily weights Monitor for unintentional weight changes Goals: Adequate po intakes (kcals and protein); >75% meals Understanding of nutrition education/adherence to diet recommendations No significant unintentional wt loss Nutrition-related labs (magnesium, phosphorus, BMP) wnl To reach the Clinical Dietitian, please utilize [email or web address] chat Wednesday-Wednesday from 8AM-4PM or call extension [phone]. For weekends (Wednesday-Wednesday) and holidays, the Clinical Dietitian can be reached via pager ([phone]) from 9AM-3PM. The Clinical Nutrition Department is unable to respond to [email or web address] chat messages on Sundays and s. [1] Past Medical History: Diagnosis Date Asthma 07/29/2012 CHF (congestive heart failure) (CMS/HCC) Coronary artery disease History of malignant neoplasm of prostate 07/03/2022 Hypertension 07/03/2022 [2] No Known Allergies * Pam Prado PTA - 05/03/2025 3:36 PM EDT Physical Therapy PM Cancellation note 05/03/2025 Pt per nursing is currently off the floor and down in US , pt had a hematoma on the side of his neck and nursing stated that she had felt on it because of the size of it and pus came out of it . Pt is not available at this time for physical therapy services . Attempted time : 15:33-15:34 Cosigned by Karsten San PT at 05/04/2025 11:50 AM EDT * Charla Yusuf OT - 05/03/2025 2:51 PM EDT Occupational Therapy Occupational Therapy Treatment Patient Name: Kristy Doherty : 1955 Today's Date: 05/03/2025 Start Time: 1346 Stop Time: 1410 Time Calculation (min): 24 min OT Therapeutic Procedures Time Entry Self Care/Home Management (ADLs) Time Entry: 10 Therapeutic Activity Time Entry: 14 Problem List Problem List[1] Pain: Pain Assessment Pain Score: 8 Pain Type: Acute pain Pain Location: Arm (Forearm and wrist) Pain Orientation: Right Objective General Visit Information: OT Last Visit OT Received On: 05/03/25 General Subjective: Patient was sitting up in chair and stated My right wrist still hurts from where the line was placed. They put ice on it yesterday but it didn't help. Patient was agreeable to going fora walk but wanted to keep his male Purewick on. The patient was agreeable to putting a brief on to keep the Purewick from leaking while walking. During the walk the patient stated, I feel like my right ankle buckled. When patient sat back down patient was asked about using a RW to improve his stability but worried about using it with his right wrist pain. Patient's then came in with lunch and encouraged the patient to try using the walker which the patient did. The stated she did not have a walker at home and would need to get one. Session Comments: Patient participated in ADLS while seated in chair and performed two mobility tasks to improve his balance and endurance. Patient was encouraged to start going to the bathroom for toileting rather than using the Purewick to gradually improve his endurance. Precautions Precautions Medical Precautions: fall risk, telemetry Cognition Cognition Arousal/Alertness: Appropriate responses to stimuli Orientation Level: Oriented X4 Following Commands: Follows all commands and directions without difficulty Awareness of Errors: Assistance required to identify errors made, Assistance required to correct errors made Deficits: Decreased awareness of deficits Attention Span: Appears intact Memory: Appears intact Communication: Intact General Assessment General Assessment Skin Integrity: Patient had yellow/pinkish bruising which was warm to the touch on right forearm and wrist from where patient had an IV or catheter line. All other visible areas were intact. Edema: Mild swelling on right forearm which was elevated on a pillow at end of session. Patient wasasked if he wanted a small ice pack and he declined stating ice didn't really help yesterday when it was applied. ADL Assessment: UE Dressing UE Dressing Level of Assistance: Minimum assistance UE Dressing Where Assessed: Sitting in chair UE Dressing Comments: Some assist pulling gown around back LE Dressing LE Dressing: Yes Sock Level of Assistance: Close supervision LE Dressing Where Assessed: Sitting in chair LE Dressing Comments: Patient put socks on while seated in chair. Patient's stated she would bring in the patient's shoes, socks, and sweatpants to wear tomorrow to work on dressing and to wear when walking in hallway. Toileting Toileting Level of Assistance: Minimum assistance Toileting Comments: Patient had a male Purewick. Tubing was disconnected and patient stood to placebrief underneath patient. Patient needed some assist fastening brief. Patient was encouraged to start using a urinal or walking to bathroom with staff assist to incorporate more functional mobility and increase his independence with toileting. Static Sitting Balance Static Sitting Balance Static Sitting-Balance Support: Feet supported Static Sitting-Level of Assistance: Independent Static Sitting-Comment/Number of Minutes: Sitting in recliner chair in room. Dynamic Sitting Balance Dynamic Sitting Balance Dynamic Sitting-Balance Support: Feet supported Dynamic Sitting-Balance: Forward lean Dynamic Sitting Balance-Level of Assistance: Distant supervision Dynamic Sitting-Comments: Patient participated in LB dressing while sitting in chair. Static Standing Balance Static Standing Balance Static Standing-Balance Support: No upper extremity supported Static Standing-Level of Assistance: Close supervision Static Standing-Comment/Number of Minutes: Stood by the chair when brief applied. Dynamic Standing Balance Dynamic Standing Balance Dynamic Standing-Balance Support: No upper extremity supported Dynamic Standing-Balance: Forward lean Dynamic Standing Balance-Level of Assistance: Contact guard Dynamic Standing-Comments: Patient walked into hallway and had 3 episodes of unsteadiness requiringcontact guarding due to some R ankle instability. Patient later walked with RW in room with SBA andbetter balance. Bed Mobility Bed Mobility Bed Mobility: No Transfers Transfers Ambulation comments: Patient first walked from recliner into hallway about 5 steps and then turned around and returned to the room. The patient did not use an assistive device and needed CGA due to 3episodes of mild unsteadiness due to some instability in right ankle. The patient then tried walking in the room with RW and only needed SBA and demonstrated better balance. Patient did not have any unsteadiness or pain in his ankle. Transfer: Yes Transfer 1 Transfer From 1: Chair with arms Transfer Type 1: To and from Transfer to 1: Stand Technique 1: Sit to stand, Stand to sit Transfer Device 1: none Transfer Level of Assistance 1: Close supervision Trials/Comments 1: Patient stood up 3 times during the session with very close supervision for safety. Activity Tolerance Activity Tolerance Endurance: Stage III Stage II (METs 1.4-2.0) - Sittin-10 mins Stage III (METs 2.0-3.0) - Sitting to Standin-10 mins Number of Rest Breaks: (3) Activity Tolerance Comments: The patient reported feeling fatigued and demonstrated mild SOB after walking into the hallway and back to his room. Outcome Assessments AM-PAC 6 Clicks Putting on and taking off regular lower body clothing?: A Little (Min Assist/Contact Guard/Supervision) Bathing(Including washing,rinsing,drying)?: A Little (Min Assist/Contact Guard/Supervision) Toileting, which includes using the toilet,bedpan,or urinal?: A Little (Min Assist/Contact Guard/Supervision) Putting on and taking off regular upper body clothing?: A Little (Min Assist/Contact Guard/Supervision) Taking care of personal grooming such as brushing teeth?: A Little (Min Assist/Contact Guard/Supervision) Eating meals?: None (Independent) Total Score OT [facility]: 19 Assessment/Plan OT Assessment OT Impairments: Decreased ADL status, Decreased endurance, Decreased IADLs, Decreased functional mobility, Decreased trunk control for functional activities OT Assessment/PHYSICIAN SCRIBE Summary: The patient is making good progress towards his goals and was able to participate in ADLS while sitting in the chair today and was able to walk a little farther today out into the hallway. The patient would benefit from continued skilled OT treatment to improve his balance, to improve his ability to perform ADLS in standing, to improve his endurance, and to maximize hislevel of independence with ADLS. Prognosis: Good Evaluation/Treatment Tolerance: Patient tolerated treatment well Medical Staff Made Aware: Yes Strengths: Living arrangement secure, Support and attitude of living partners Barriers to Discharge: Access to adaptive/assistive products OT Education/Comments: OT instructed patient and his on DME. stated she has a shower chair and all necessary bathroom equipment. stated she had a w/c but not a RW. OT recommended a RW to improve patient's balance and discussed ways to make the walker slide better by placing tennis balls or gliders on the back leg. OT also educated patient on POC, role of OT, edema management techniques such as elevating and icing R forearm, and E.C. techniques. Patient verbalized understanding ofeducation. Plan Level of assist: 1 assist Treatment Interventions: ADL retraining, Patient/family training, Equipment evaluation/education, Functional transfer training, Endurance training, Compensatory technique education OT Plan: Skilled OT OT Frequency: 5 times per week OT Discharge Recommendations: Patient is able to return to prior living environment (Patient may benefit from home or outpatient PT to improve his endurance/ balance) Equipment Recommended: rolling walker OT - Discharge Recommendations Placed: Yes OT Goals: Multi-Disciplinary Problems (from Occupational Therapy) Active Problems Problem: Bathing Start Date: 05/02/25 Goal Start Date Expected End Date End Date LTG - Patient will utilize adaptive techniques to bathe body with stand- by/contact guard 05/02/25 05/09/25 -- Problem: Dressings Lower Extremities Start Date: 05/02/25 Goal Start Date Expected End Date End Date LTG - Patient will dress lower body with stand-by/contact guard 05/02/25 05/09/25 -- Problem: Dressing Upper Extremities Start Date: 05/02/25 Goal Start Date Expected End Date End Date LTG - Patient will complete upper body dressing with no assistance 05/02/25 05/09/25 -- Problem: Grooming Start Date: 05/02/25 Goal Start Date Expected End Date End Date STG - Patient will tolerate standing sink side to complete grooming with no assistance 05/02/25 05/09/25 -- Problem: Toileting Start Date: 05/02/25 Goal Start Date Expected End Date End Date LTG - Patient will utilize adaptive techniques/equipment to complete daily toileting tasks with modified independent 05/02/25 05/09/25 -- Problem: Transfers Start Date: 05/02/25 Goal Start Date Expected End Date End Date LTG - Patient will perform bed mobility with no assistance 05/02/25 05/09/25 -- Problem: OT Misc Start Date: 05/02/25 Goal Start Date Expected End Date End Date Pt will demo increased activity tolerance by participating in 20 minutes of dyn. sitting/standing tasks in least restrictive environment with SBA/CGA as needed for safe completion of all functional tasks and functional ambulation/transfers. 05/02/25 05/09/25 -- Goal Start Date Expected End Date End Date Pt will complete functional transfers and functional ambulation with modified independent using least restrictive device. 05/02/25 05/09/25 -- [1] Patient Active Problem List Diagnosis New onset of congestive heart failure (CMS/HCC) Uncomplicated asthma History of malignant neoplasm of prostate Hypomagnesemia Primary hypertension Syncope and collapse Coronary artery disease involving che[place]huevi coronary artery of che[place]huevi heart with angina pectoris Chronic systolic heart failure (CMS/HCC) Depressive disorder Dyslipidemia Prediabetes Seasonal allergic rhinitis Steatosis of liver Vitamin D deficiency Cardiomyopathy (CMS/HCC) ICD (implantable cardioverter-defibrillator) in place Benign essential hypertension Chronic pansinusitis Hyperlipidemia Malignant tumor of prostate (CMS/HCC) Nasal polyp Mild persistent asthma without complication Paroxysmal atrial fibrillation (CMS/HCC) Atrial fibrillation (CMS/HCC) Chest pain Heart failure with reduced ejection fraction (CMS/HCC) Pericardial effusion Hyponatremia Leukocytosis Hypotension due to hypovolemia Sinus tachycardia Right ventricular dysfunction Cardiogenic shock (CMS/HCC) ATN (acute tubular necrosis) Hematoma of intravenous catheter site * Yarelis Heller RN - 05/03/2025 2:47 PM EDT Patient was admitted to the hospital for: Chest pain. Epic chart echo from 04/30/2025 reports: EF 20 %. The current echo report qualifies for Cardiopulmonary Rehab services per CMS eligibility criteria. A Cardiopulmonary Rehab referral diagnosis and ICD code must also meet CMS criteria. Yarelis Heller RN, BSN Cardiology Outpatient Coordinator Cardiopulmonary Rehab * Benedict Pascual MD - 05/03/2025 12:08 PM EDT Images from the original note were not included. [facility] Medicine Daily Progress Note - 05/03/2025 12:08 PM; Room: [address] [place] [address] Admission: 04/19/2025 10:46 AM; Length of stay: 14 days THE HOSPITALIST TEAM PREFERS TO USE EPIC CHAT FOR NON-URGENT COMMUNICATION 7AM- 7PM. IF I DO NOT RESPOND WITHIN 20 MINUTES OR URGENT MATTERS, PLEASE CALL THROUGH THE CLINICAL LAB SPECIALIST. FROM 7PM-7AM, PLEASE PAGE [phone](COVR). Code Status: Full Code Barriers to Discharge: Monitor renal function Expected Discharge Date: Discharge Destination: home Overview Patient is seen for evaluation and management of cardiogenic shock, ATN, pericardial effusion. Subjective Patient denies SOB and CP. Saturating well on RA. Physical Exam Visit Vitals BP 128/79 (BP Location: Left arm, Patient Position: Lying) Pulse 88 Temp 36.4 ??C (97.5 ??F) (Temporal) Resp 18 Intake/Output Summary (Last 24 hours) at 05/03/2025 1208 Last data filed at 05/03/2025 1000 Gross per 24 hour Intake 510 ml Output 1200 ml Net -690 ml Physical Exam Cardiovascular: Rate and Rhythm: Normal rate and regular rhythm. Pulmonary: Effort: Pulmonary effort is normal. Breath sounds: Normal breath sounds. Abdominal: General: Abdomen is flat. Palpations: Abdomen is soft. Skin: Comments: Lump on right side neck (cath site access) Neurological: General: No focal deficit present. Mental Status: He is alert and oriented to person, place, and time. Estimated body mass index is 28.33 kg/m?? as calculated from the following: Height as of this encounter: 1.727 m (5' 8 ). Weight as of this encounter: 84.5 kg (186 lb 4.6 oz). Assessment and Plan Assessment & Plan Right ventricular dysfunction Cardiogenic shock (CMS/HCC) - Required Assawoman Shannan and dobutamine in ICU. - Improving. ATN (acute tubular necrosis) - Due to shock. - Required CRRT in ICU. - Monitor Crea while off dialysis. - Avoid nephrotoxic agents. Cardiomyopathy (CMS/HCC) Heart failure with reduced ejection fraction (CMS/HCC) ICD (implantable cardioverter-defibrillator) in place - Nonischemic cardiomyopathy. - Echo this admission showed EF 20%. - Continue Toprol and Farxiga. - Hold Entresto and spironolactone due to hypotension. - Right cath today. Hematoma of intravenous catheter site - Neck side. - Fluid cx was sent. - We will order US neck. - Start doxy empirically. Chest pain Pericardial effusion - Echo on admission showed early tamponade. Patient was taken to lab instructor for Pericardiocentesis. Right heart cath was not suggestive for tamponade. 300 ml serosanguinous fluid. - Repeated echo showed mild effusion. Atrial fibrillation (CMS/HCC) - Currently paced. - Status post Watchman. - Continue aspirin and Plavix. Uncomplicated asthma - Albuterol and switched from his Advair to our equivalent. Primary hypertension Hypotension due to hypovolemia Sinus tachycardia - Continue Toprol, Farxiga and spironolactone. - Hold Entresto due to LINDA. 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 - Continue aspirin, Plavix, Lipitor. Nutrition Screen: Malnutrition Attestation: No dietitian assessment is available at this time. VTE Prophylaxis: Heparin subcutaneous Scheduled Meds allopurinol, 300 mg, oral, Daily aspirin, 81 mg, oral, Daily with breakfast atorvastatin, 40 mg, oral, Nightly clopidogrel, 75 mg, oral, Daily [Held by provider] colchicine, 0.6 mg, oral, BID dapagliflozin propanediol, 10 mg, oral, Once Daily doxycycline, 100 mg, oral, BID enoxaparin, 40 mg, subcutaneous, Daily [Held by provider] furosemide, 80 mg, intravenous, q12h [Held by provider] metoprolol succinate XL, 12.5 mg, oral, Daily mometasone-formoterol, 2 puff, inhalation, BID [Held by provider] sennosides-docusate sodium, 1 tablet, oral, BID spironolactone, 25 mg, oral, Daily dialysate 4K with bicarb and calcium 5000 mL, 2,000 mL/hr, Last Rate: Stopped (05/01/25 125) sodium bicarbonate 150 mEq in sterile water 1,000 mL infusion, 200 mL/hr, Last Rate: Stopped (05/01/25 1253) Pertinent Investigations Hematology: Results from last 7 days Lab Units 05/03/25 0351 05/02/25 0313 WBC AUTO 10*3/uL 6.22 5.94 HEMOGLOBIN g/dL 9.2* 8.4* HEMATOCRIT % 27.4* 24.6* MCV fL 92.9 93.5 PLATELETS AUTO 10*3/uL 187 153 Chemistry: Results from last 7 days Lab Units 05/03/25 0351 05/02/25 0313 05/01/25 0830 SODIUM mmol/L 129* 133* 136 POTASSIUM mmol/L 4.1 3.1* 3.9 CHLORIDE mmol/L 94* 93* 96* CO2 mmol/L 25 33* 35* BUN mg/dL 24 20 11 CREATININE mg/dL 1.75* 1.69* 1.01 GLUCOSE mg/dL 89 105* 99 MAGNESIUM mg/dL 1.8* 1.8* 1.9 CALCIUM mg/dL 7.3* 7.3* 7.7* PHOSPHORUS mg/dL 1.8* 2.5 2.4* Results from last 7 days Lab Units 05/02/25 0313 05/01/25 0305 04/30/25 0410 04/29/25 0238 04/28/25 1557 04/28/25 0854 HCO3 ART mmol/L -- -- -- -- -- 16.9* O2 SAT ART % -- -- -- -- -- 98.1 AMMONIA umol/L -- -- -- 56 -- -- AST U/L 54* 86* 119* 252* < > -- ALT U/L 129* 182* 211* 267* < > -- ALK PHOS U/L 60 65 54 56 < > -- BILIRUBIN TOTAL mg/dL 0.7 0.9 0.8 0.7 < > -- < > = values in this interval not displayed. Results from last 7 days Lab Units 04/28/25 1344 04/27/25 1714 04/27/25 1201 04/27/25 1007 POCT GLUCOSE mg/dL 88 148* 153* 170* Historical Values: (Includes values prior to this admission) Lab Results Component Value Date CORTISOL 11.2 04/20/2025 HDL 29 04/24/2025 LDL 69 04/24/2025 Lab Results Component Value Date IRON 33 (L) 04/29/2025 TIBC 214 (L) 04/29/2025 Imaging Transthoracic echo (TTE) limited 1 1 [facility] Heart Station [address] [phone] (fax) Echocardiogram-[facility] Name: KRISTY DOHERTY Study Date: 04/30/2025 07:02 AM B/P: 121 mmHg/100 mmHg HR: 87 bpm Date of : 1955 Location: [facility] Height: 68 in. Age: 69 year(s) Patient Room: 3217 Weight: 178 lb. Gender: Male Patient Status: InPt BSA: 1.94 m2 Indication: Limited; pericardial effusion, S/P 35 mm Watchman device FLX, Pericardiocentesis EF 20%, Pacemaker/AICD, Continuous hemodialysis Examination: Limited Echo/Limited Doppler, Color flow imaging Image Quality: Good Patient Consent: Procedure explained to patient Conclusions Left Ventricle: Global left ventricular systolic function is severely reduced. The EF is 20 % visually. Diffuse global hypokinesis. Right Ventricle: Mildly reduced right ventricular systolic function. Doppler studies suggest mildly elevated right sided pressures. Left Atrium: The left atrium appears enlarged. Mitral Valve: Mild mitral regurgitation. Aortic Valve: Mild aortic valve regurgitation. Tricuspid Valve: Moderate tricuspid regurgitation. Tricuspid Valve Measurements RVSP: 42 mmHg. Pericardium: No pericardial effusion. Measurements Left Ventricle Label Value Normal Value LVEF visual 20 % Tricuspid Valve Label Value Normal Value RA Pressure 8 mmHg RVSP 42 mmHg TR Vmax 2.93 m/s Great Vessels Label Value Normal Value IVC 2 cm (1.2cm - 2.3cm) Valvular Assessment LVOT 0.7 - 1.1 m/sec Aortic Valve 1.0 - 1.7 m/sec Mitral Valve 0.6 - 1.3 m/sec Tricuspid Valve 0.3 - 0.7 m/sec Pulmonic Valve 0.6 - 0.9 m/sec Regurgitation Mild Mild Moderate No Findings Left Ventricle: Global left ventricular systolic function is severely reduced. The EF is 20 % visually. Diffuse global hypokinesis. All scored left ventricular wall segments are hypokinetic. No thrombus is identified in the left ventricle. Right Ventricle: Mildly reduced right ventricular systolic function. A pacemaker wire is seen in the right ventricle. Doppler studies suggest mildly elevated right sided pressures. Left Atrium: The left atrium appears enlarged. Right Atrium: The right atrium is mildly enlarged. Mitral Valve: The mitral valve is normal in mobility and thickness. Mild mitral regurgitation. Aortic Valve: Mildly sclerosed aortic valve cusps. Mild aortic valve regurgitation. The aortic valve is trileaflet. Tricuspid Valve: Normal tricuspid valve. Moderate tricuspid regurgitation. Tricuspid Valve Measurements RVSP: 42 mmHg. Pulmonic Valve: Normal pulmonary valve. No pulmonary regurgitation. Great Vessels: IVC: The IVC is normal in size. There is no inspiratory collapse of the IVC. Pericardium: No pericardial effusion. The Attending Physician has reviewed the examination with the fellow Procedure Staff Reading Group: [facility] Referring Physician: RUDY KING Property Consultant: June Brumfield RDCS, RVT, RN, BSN Ordering Physician: Wil Sotomayor MD Wall Motion Scores -1 - hyperkinesia, 0 - not evaluated, 1 - normal, 2 - hypokinesia, 3 - akinesia, 4 - dyskinesia Discharge Planning Expected Discharge Disposition: Home or Self Care (01) (pending clinical course) PT Discharge Recommendations: Patient is able to return to prior living environment OT Discharge Recommendations: Patient is able to return to prior living environment Signed Benedict Pascual MD [facility] Medicine 05/03/2025 12:08 PM * Kristin Sanchez MD - 05/03/2025 9:32 AM EDT Images from the original note were not included. Nephrology Progress Note Patient : Kristy Doherty; 69 y.o. Location: 3140/3140-01 Attending: Benedict Pascual MD Admit Date: 04/19/2025 Hospital Day: 14 Reason for Consult: Severe LINDA in setting of Cardiogenic Shock Subjective: History of present illness: Kristy Doherty is a 69 y.o. male with PMHx significant for CAD, Atrial fibrillation s/p Watchman procedure, who was transferred from [place] with initial chief complaint of chest and back pain. The patient was noted to have a percardial effusion and echocardiogram and was taken for emergent pericar diocentesis with RHC and LHC. He had recurrence of his effusion with repeat echo demonstrating reduced RV function, RHC with elevated wedge pressures. Patient is seen and examined in MICU. He is currently receiving lasix 40 mg in addition to 40 received earlier. Plan to give 80 mg BID additional. Urine output this far has been minimal. He has a lanier catheter in place. Denies acute complaints incl uding chest pain and shortness of breath. Interval history: 05/03/25 Patient seen and examined sitting in his armchair this morning, afebrile and hemodynamically stable. No acute events overnight. Patient transferred to the floor. Patient denies chest pain or shortnessof breath. UOP 1.5 L in last 24 hours. Labs reviewed. Creatinine increased to 1.75. Objective: Input/Output: Intake/Output Summary (Last 24 hours) at 05/03/2025 0932 Last data filed at 05/03/2025 0714 Gross per 24 hour Intake 150 ml Output 1200 ml Net -1050 ml I/O last 3 completed shifts: In: 250 (3 mL/kg) [I.V.:50 (0.6 mL/kg); IV Piggyback:200] Out: 2300 (27.2 mL/kg) [Urine:2300 (0.8 mL/kg/hr)] Weight: 84.5 kg Vital signs: Temperature: Temp: 36.4 ??C (97.5 ??F) TMax: Temp (24hrs), Av.4 ??C (97.5 ??F), Min:36.3 ??C (97.3 ??F), Max:36.4 ??C (97.5 ??F) Respirations: Resp: 18 Pulse: Heart Rate: 88 BP: BP: 128/79 BP Range: Systolic (24hrs), Av , Min:96 , Max:129 Diastolic (24hrs), Av, Min:48, Max:88 Wt Readings from Last 3 Encounters: 05/03/25 84.5 kg (186 lb 4.6 oz) 04/03/25 84.8 kg (187 lb) 02/26/25 85.7 kg (189 lb) Physical Exam Constitutional: General: He is not in acute distress. Appearance: He is not ill-appearing. HENT: Head: Normocephalic and atraumatic. Eyes: General: No scleral icterus. Cardiovascular: Rate and Rhythm: Normal rate and regular rhythm. Heart sounds: Normal heart sounds. No murmur heard. No friction rub. No gallop. Pulmonary: Effort: Pulmonary effort is normal. No respiratory distress. Breath sounds: Normal breath sounds. No wheezing, rhonchi or rales. Abdominal: General: Abdomen is flat. Palpations: Abdomen is soft. Musculoskeletal: Right lower leg: No edema. Left lower leg: No edema. Skin: General: Skin is warm and dry. Neurological: General: No focal deficit present. Mental Status: He is alert and oriented to person, place, and time. Psychiatric: Mood and Affect: Mood normal. Current Medications: Scheduled Meds: allopurinol, 300 mg, oral, Daily aspirin, 81 mg, oral, Daily with breakfast atorvastatin, 40 mg, oral, Nightly clopidogrel, 75 mg, oral, Daily [Held by provider] colchicine, 0.6 mg, oral, BID dapagliflozin propanediol, 10 mg, oral, Once Daily enoxaparin, 40 mg, subcutaneous, Daily [Held by provider] furosemide, 80 mg, intravenous, q12h [Held by provider] metoprolol succinate XL, 12.5 mg, oral, Daily mometasone-formoterol, 2 puff, inhalation, BID [Held by provider] sennosides-docusate sodium, 1 tablet, oral, BID spironolactone, 25 mg, oral, Daily Continuous Infusions: dialysate 4K with bicarb and calcium 5000 mL, 2,000 mL/hr, Last Rate: Stopped(05/01/25 1253) sodium bicarbonate 150 mEq in sterile water 1,000 mL infusion, 200 mL/hr, Last Rate: Stopped (05/01/25 1253) PRN Meds: PRN medications: acetaminophen, albuterol, alteplase, glucose OR dextrose 50 % in water (D50W), guaiFENesin, heparin (porcine), ipratropium- albuteroL, melatonin, naloxone OR naloxone OR naloxone, ondansetron ODT OR ondansetron, oxyCODONE, simethicone, sodium chloride Outpatient Medications: Medication Documentation Review Audit Reviewed by Karrie Garza RN (Registered Nurse) on 04/19/25 at 1111 Medication Order Taking? Sig Documenting Provider Last Dose Status albuterol 90 mcg/actuation inhaler [id number] Inhale 1 puff 2 times daily. Historical Provider, Active allopurinol (Zyloprim) 300 mg tablet [id number] Yes Take 300 mg by mouth in the morning. Historical Provider, 04/18/2025 Morning Active amoxicillin (Amoxil) 500 mg tablet [id number] No Take 4 tablets (2,000 mg) by mouth 1 (one) time if needed (30-60 minute prior to dental procedures) for up to 20 doses. Patient not taking: Reported on 04/19/2025 Hay William MD Unknown Active aspirin 81 mg chewable tablet [id number] Yes Chew 1 tablet (81 mg) with breakfast. Hay William MD 04/18/2025 Morning Active atorvastatin (Lipitor) 40 mg tablet [id number] Yes Take 1 tablet (40 mg) by mouth at bedtime. Hay William MD 04/18/2025 Bedtime Active clopidogrel (Plavix) 75 mg tablet [id number] Yes Take 1 tablet (75 mg) by mouth in the morning. Hay William MD 04/18/2025 Morning Active dapagliflozin propanediol (Farxiga) 10 mg [id number] Yes Take 1 tablet (10 mg) by mouth once daily asdirected. Shania Chauhan CNP 04/18/2025 Morning Active Dupixent Syringe 300 mg/2 mL syringe injection [id number] No Inject 300 mg under the skin every 14 (fourteen) days. Historical Provider, 04/07/2025 Active fluticasone (Flonase) 50 mcg/actuation nasal spray [id number] Yes Administer 1 spray into each nostril two times daily. Shake gently. Before first use, prime pump. After use, clean tip and replace cap.Historical Provider, 04/18/2025 Bedtime Active fluticasone propion-salmeteroL (Advair Diskus) 500-50 mcg/dose diskus inhaler [id number] Yes Inhale 1puff two times daily. Historical ProviderMD 04/18/2025 Bedtime Active metoprolol succinate XL (Toprol-XL) 50 mg 24 hr tablet [id number] Yes Take 1 tablet (50 mg) by mouth once daily as directed. Do not crush or chew. Hay William MD 04/18/2025 Morning Active sacubitril-valsartan (Entresto) 97-103 mg tablet [id number] Yes Take 1 tablet by mouth two times daily. Hay William MD 04/18/2025 Bedtime Active spironolactone (Aldactone) 25 mg tablet [id number] Yes Take 1 tablet (25 mg) by mouth in the morning.Hay William MD 04/18/2025 Morning Active Labs: I have reviewed the patient's most recent labs as listed below: Chemistry: Lab Results Component Value Date NA 129 (L) 05/03/2025 K 4.1 05/03/2025 CL 94 (L) 05/03/2025 CO2 25 05/03/2025 ANIONGAP 14 05/03/2025 BUN 24 05/03/2025 CREATININE 1.75 (H) 05/03/2025 EGFR 41.6 (L) 05/03/2025 CALCIUM 7.3 (L) 05/03/2025 MG 1.8 (L) 05/03/2025 PHOS 1.8 (L) 05/03/2025 ALBUMIN 3.1 (L) 05/02/2025 PROT 5.4 (L) 05/02/2025 AST 54 (H) 05/02/2025 ALT 129 (H) 05/02/2025 BILITOT 0.7 05/02/2025 ALKPHOS 60 05/02/2025 Hematology & Iron studies: Lab Results Component Value Date WBC 6.22 05/03/2025 HGB 9.2 (L) 05/03/2025 HCT 27.4 (L) 05/03/2025 MCV 92.9 05/03/2025 PLT 187 05/03/2025 IRON 33 (L) 04/29/2025 TIBC 214 (L) 04/29/2025 UIBC 181.0 04/29/2025 IRONSAT 15 (L) 04/29/2025 FERRITIN 1,265.0 (H) 04/29/2025 Urine chemistry Lab Results Component Value Date PROTUR Negative 04/26/2025 CREATUR 83.0 04/26/2025 NAUR 92 04/26/2025 UREAUR 237 04/26/2025 Urinalysis & Microscopy: No results found for: COLORU , CLARITYU , SPECGRAVU , LOGAN , PROTUR , LEUKOCYTESU , NITRITEU , GLUCOSEU , KETONESU , BILIRUBINUR , UROBILINOGEN , BLOODU , RBCU , WBCU , SQUAMEPIU , MUCUSU , TRIPHOCRYU , CAOXALCRU , CAPHOSCRYU Urine Eosinophils: No components found for: UEOS Serology & Other labs: Lab Results Component Value Date ANATITER <1:40 04/19/2025 BNP: No results found for: BNP COLLIN: No results found for: COLLIN SPEP: Lab Results Component Value Date PROT 5.4 (L) 05/02/2025 UPEP: No components found for: LABPE C3: No results found for: C3 C4: No results found for: C4 MPO ANCA: No components found for: MPO PR3 ANCA: No components found for: PR3 Anti-GBM: No components found for: GBMABIGG Hep BsAg: No results found for: HEPBSAG Hep C AB: No results found for: HEPCAB Radiology: Transthoracic echo (TTE) limited 1 1 [facility] Heart Station [address] [place], [place] [phone] (fax) Echocardiogram-[facility] Name: KRISTY DOHERTY Study Date: 04/30/2025 07:02 AM B/P: 121 mmHg/100 mmHg HR: 87 bpm Date of : 1955 Location: [facility] Height: 68 in. Age: 69 year(s) Patient Room: 3217 Weight: 178 lb. Gender: Male Patient Status: InPt BSA: 1.94 m2 Indication: Limited; pericardial effusion, S/P 35 mm Watchman device FLX, Pericardiocentesis EF 20%, Pacemaker/AICD, Continuous hemodialysis Examination: Limited Echo/Limited Doppler, Color flow imaging Image Quality: Good Patient Consent: Procedure explained to patient Conclusions Left Ventricle: Global left ventricular systolic function is severely reduced. The EF is 20 % visually. Diffuse global hypokinesis. Right Ventricle: Mildly reduced right ventricular systolic function. Doppler studies suggest mildly elevated right sided pressures. Left Atrium: The left atrium appears enlarged. Mitral Valve: Mild mitral regurgitation. Aortic Valve: Mild aortic valve regurgitation. Tricuspid Valve: Moderate tricuspid regurgitation. Tricuspid Valve Measurements RVSP: 42 mmHg. Pericardium: No pericardial effusion. Measurements Left Ventricle Label Value Normal Value LVEF visual 20 % Tricuspid Valve Label Value Normal Value RA Pressure 8 mmHg RVSP 42 mmHg TR Vmax 2.93 m/s Great Vessels Label Value Normal Value IVC 2 cm (1.2cm - 2.3cm) Valvular Assessment LVOT 0.7 - 1.1 m/sec Aortic Valve 1.0 - 1.7 m/sec Mitral Valve 0.6 - 1.3 m/sec Tricuspid Valve 0.3 - 0.7 m/sec Pulmonic Valve 0.6 - 0.9 m/sec Regurgitation Mild Mild Moderate No Findings Left Ventricle: Global left ventricular systolic function is severely reduced. The EF is 20 % visually. Diffuse global hypokinesis. All scored left ventricular wall segments are hypokinetic. No thrombus is identified in the left ventricle. Right Ventricle: Mildly reduced right ventricular systolic function. A pacemaker wire is seen in the right ventricle. Doppler studies suggest mildly elevated right sided pressures. Left Atrium: The left atrium appears enlarged. Right Atrium: The right atrium is mildly enlarged. Mitral Valve: The mitral valve is normal in mobility and thickness. Mild mitral regurgitation. Aortic Valve: Mildly sclerosed aortic valve cusps. Mild aortic valve regurgitation. The aortic valve is trileaflet. Tricuspid Valve: Normal tricuspid valve. Moderate tricuspid regurgitation. Tricuspid Valve Measurements RVSP: 42 mmHg. Pulmonic Valve: Normal pulmonary valve. No pulmonary regurgitation. Great Vessels: IVC: The IVC is normal in size. There is no inspiratory collapse of the IVC. Pericardium: No pericardial effusion. The Attending Physician has reviewed the examination with the fellow Procedure Staff Reading Group: [facility] Referring Physician: RUDY KING Property Consultant: June Brumfield RDCS, RVT, RN, BSN Ordering Physician: Wil Sotomayor MD Wall Motion Scores -1 - hyperkinesia, 0 - not evaluated, 1 - normal, 2 - hypokinesia, 3 - akinesia, 4 - dyskinesia Assessment: Acute Kidney Injury, likely combination of ATN due to altered hemodynamics in setting of tamponade and contrast nephropathy - improving Electrolyte Abnormalities (Hyponatremia, Hypokalemia) Metabolic acidosis - resolved Hypervolemia - resolved HFrEF- RHC suggestive of biventricular failure. EF 20%, RV systolic function severely reduced per echo 04/23/2025 Atrial fibrillation s/p Watchman- on amiodarone Normocytic anemia Essential hypertension Plan: Patient responded well to Lasix and appears to be making a good amount of urine. Can give additional as-needed doses if UOP decreases. Noted bump in Cr/BUN however this is after discontinuation of CRRT. Unclear at this time if this represents new baseline - continue to trend daily renal chemistries and watch for renal recovery. No indication for DRESSMAKER GARMENT FITTER at this time. Patient remained stable and is now on the floor. Maintain femoral catheter at this time. Will continue to trend Creatinine to assess when to remove femoral catheter. Electrolyte replacement as needed Continue to avoid nephrotoxic medications. Nephrology service will continue to follow. Kristin SANCHEZ MD Nephrology Fellow PGY 4 - [facility] Nephrology Pager: [phone] Phone (7am - 4pm): [phone] Cosigned by Karina Amaya MD at 05/03/2025 4:14 PM EDT Associated attestation - Karina Amaya MD - 05/03/2025 4:14 PM EDT By using the attestations below, the signing clinician agrees that I have read and verify that thedocumentation has been personally reviewed by me and ensure that the documentation accurately reflects the encounter. GC: I personally saw this patient on the day of the encounter, performed the gonzáles portion(s) of the service and participated in the management and confirm the resident's documentation. Please note there may be an additional personal documentation from me. * Alba Mena MD - 05/03/2025 8:49 AM EDT Cardiology Progress Note Cardiogenic shock Subjective Kristy Doherty is a 69 y.o. male with significant medical history of hypertension, paroxysmal atrial fibrillation s/p Watchman 02/06/2025, chronic HFrEf (25-30%) s/p ICD 08/2022, and CAD who presented to the hospital for chest pain. Patient reports having substernal chest pain, radiating to his back and neck since the prior evening. Patient reports that his blood pressure has been running in the low 90s over 70s over the past couple of weeks. Denies any recent fever or chills/cough. Patient reports being compliant with all his medications. Subjective: Patient was seen and examined at bedside this morning. Afebrile and HDS. His blood pressure is better this morning. Cr 1.76 compared to 1.69 yesterday. Was given one time IV lasix 40 mg, urine output1.5L since yesterday. Reports feeling well overall. Is working with PT and is able to ambulate without any dyspnea. Objective: Patient Vitals for the past 24 hrs: BP Temp Temp src Pulse Resp SpO2 Weight 05/03/25 0809 128/79 36.4 ??C (97.5 ??F) Temporal 88 18 96 % -- 05/03/25 0500 -- -- -- -- -- -- 84.5 kg (186 lb 4.6 oz) 05/03/25 0400 107/79 36.4 ??C (97.5 ??F) Temporal 88 19 93 % -- 05/03/25 0359 -- -- -- -- -- -- 84.5 kg (186 lb 4.6 oz) 05/03/25 0000 113/50 36.4 ??C (97.5 ??F) Temporal 88 13 96 % -- 05/02/252004 106/66 36.3 ??C (97.3 ??F) Temporal 94 21 97 % -- 05/02/25 1800 101/59 -- -- 85 21 96 % -- 05/02/25 1721 129/85 -- -- 87 19 98 % -- 05/02/25 1500 -- -- -- 90 20 98 % -- 05/02/25 1400 119/65 -- -- 85 19 97 % -- 05/02/25 1300 105/74 -- -- 86 16 96 % -- 05/02/25 1200 (!) 96/48 -- -- 91 20 97 % -- 05/02/25 1100 (!) 97/49 -- -- 91 19 97 % -- 05/02/25 1000 117/88 -- -- 94 14 96 % -- 05/02/25 0900 108/81 -- -- 83 17 96 % -- Physical Examination: GENERAL: AOx3, in no acute distress. NECK: No JVD present. CARDIAC: RRR. No murmur, rubs, or gallops. RESPIRATORY: CTAB, no increased effort of breathing. ABDOMEN: Soft, nontender, nondistended. EXTREMITIES: No lower extremity edema, peripheral pulses are 2+ bilaterally. Relevant Lab Results Encounter Date: 04/19/25 ECG 12 lead Result Value Ventricular Rate 120 Atrial Rate 120 ME Interval 198 QRS DURATION 102 QT Interval 294 QTC CALCULATION(BAZETT) 415 P Welch 64 R-Welch 38 T Wave Welch 116 Impression Sinus tachycardia Low voltage QRS Septal infarct , age undetermined Abnormal ECG When compared with ECG of 19-APR-2025 18:24, Premature ventricular complexes are no longer Present Confirmed by Jeffy VERNON, MITESH Pruett ([id number]) on 04/23/2025 8:14:48 AM Lab Results Component Value Date TROPONINI 0.04 07/02/2022 Transthoracic echo (TTE) limited Result Date: 04/30/2025 1 1 [facility] Heart Station [address] [facility] [address] [phone] (fax) Echocardiogram-[facility] Name: KRISTY DOHERTY Study Date: 04/30/2025 07:02 AM B/P: 121 mmHg/100 mmHg HR: 87 bpm Date of : 1955 Location:[facility] Height: 68 in. Age: 69 year(s) Patient Room: 3217 Weight: 178 lb. Gender: Male Patient Status:InPt BSA: 1.94 m2 Indication: Limited; pericardial effusion, S/P 35 mm Watchman device FLX, Pericardiocentesis EF 20%, Pacemaker/AICD, Continuous hemodialysis Examination: Limited Echo/Limited Doppler, Color flow imaging Image Quality: Good Patient Consent: Procedure explained to patient Conclusions Left Ventricle: Global left ventricular systolic function is severely reduced. The EF is 20 % visually. Diffuse global hypokinesis. Right Ventricle: Mildly reduced right ventricular systolic function. Doppler studies suggest mildly elevated right sided pressures. Left Atrium: The left atrium appears enlarged. Mitral Valve: Mild mitral regurgitation. Aortic Valve: Mild aortic valve regurgitation. Tricuspid Valve: Moderate tricuspid regurgitation. Tricuspid Valve Measurements RVSP: 42 mmHg. Pericardium: No pericardial effusion. Measurements Left Ventricle Label Value Normal Value LVEF visual 20 % Tricuspid Valve Label Value Normal Value RA Pressure 8 mmHg RVSP 42 mmHg TR Vmax 2.93 m/s Great Vessels Label Value Normal Value IVC 2 cm (1.2cm - 2.3cm) Valvular Assessment LVOT 0.7 - 1.1 m/sec Aortic Valve 1.0 - 1.7 m/sec Mitral Valve 0.6 - 1.3 m/sec Tricuspid Valve 0.3 - 0.7 m/sec Pulmonic Valve 0.6 - 0.9 m/sec Regurgitation Mild Mild Moderate No Findings Left Ventricle: Global left ventricular systolic function is severely reduced. The EF is 20 % visually. Diffuse global hypokinesis. Allscored left ventricular wall segments are hypokinetic. No thrombus is identified in the left ventricle. Right Ventricle: Mildly reduced right ventricular systolic function. A pacemaker wire is seen in the right ventricle. Doppler studies suggest mildly elevated right sided pressures. Left Atrium: The left atrium appears enlarged. Right Atrium: The right atrium is mildly enlarged. Mitral Valve: The mitral valve is normal in mobility and thickness. Mild mitral regurgitation. Aortic Valve: Mildly sclerosed aortic valve cusps. Mild aortic valve regurgitation. The aortic valve is trileaflet. Tricuspid Valve: Normal tricuspid valve. Moderate tricuspid regurgitation. Tricuspid Valve Measurements RVSP: 42 mmHg. Pulmonic Valve: Normal pulmonary valve. No pulmonary regurgitation. Great Vessels: IVC: The IVC is normal in size. There is no inspiratory collapse of the IVC. Pericardium: No pericardial effusion. The Attending Physician has reviewed the examination with the fellow Procedure Staff Reading Group: [facility] Referring Physician: RUDY KING Property Consultant: June Brumfield RDCS,RVT, RN, BSN Ordering Physician: Wil Sotomayor MD Wall Motion Scores -1 - hyperkinesia, 0 - not evaluated, 1 - normal, 2 - hypokinesia, 3 - akinesia, 4 - dyskinesia Limited Echo (TTE) w/wo Limited Doppler, Color Flow, Imaging Agent, Strain, 3D, Bubble Study Result Date: 04/23/2025 1 1 [facility] Heart Station [address] [place] [address] [phone] (fax) Echocardiogram-[facility] Name: KRISTY DOHERTY Study Date: 04/23/2025 07:26 AM B/P: 90 mmHg/74 mmHg HR: 111 bpm Date of : 1955 Location: [facility] Height: 68 in. Age: 69 year(s) Patient Room: 3183 Weight: 177 lb. Gender: Male Patient Status: InPt BSA: 1.94 m2 Indication: Limited; pericardial effusion, S/P 35 mm Watchman device FLX, S/P Pericardiocentesis, H/O 25-30%, Pacemaker/AICD Examination: Limited Echo/Limited Doppler, Color flow imaging Image Quality: Good Patient Consent: Procedure explained to patient Conclusions Left Ventricle: Global left ventricular systolic function is severely reduced. The EF is 20 % visually. Regional wall motion abnormalities (see diagram). Right Ventricle: Severely reduced right ventricular systolic function. A pacemaker wire is seen in the right ventricle. Doppler studies suggest moderately elevated right sided pressures (elevated pulmonary pressure). Mitral Valve: Mild to moderate mitral regurgitation. Aortic Valve: Mild aortic valve regurgitation. Tricuspid Valve: Moderate tricuspid regurgitation. Overall Conclusions: Decrease in right ventricular systolic function and increase in tricuspid insufficiency when compared to previous study. Measurements Left Ventricle Label Value Normal Value LVEF visual 20 % Tricuspid Valve Label Value Normal Value RA Pressure 8 mmHg RVSP 49 mmHg TR Vmax 3.22 m/s Great Vessels Label Value Normal Value IVC 2 cm (1.2cm - 2.3cm) Valvular Assessment LVOT 0.7 - 1.1 m/sec Aortic Valve 1.0 - 1.7 m/sec Mitral Valve 0.6 - 1.3 m/sec Tricuspid Valve 0.3 - 0.7 m/sec Pulmonic Valve 0.6 - 0.9 m/sec Regurgitation Mild MildMod Moderate Findings Left Ventricle: Global left ventricular systolic function is severely reduced. The EF is 20 % visually. Regional wall motion abnormalities (see diagram). The basal anterior, basal anteroseptal, basal inferoseptal, basal inferior, basal inferolateral, basal anterolateral, mid inferoseptal, mid inferior and mid inferolateral left ventricular wall segments are hypokinetic. The mid anterior, mid anteroseptal, mid anterolateral, apical anterior, apical septal, apical inferior, apical lateral and apex left ventricular wall segments are akinetic. Right Ventricle: The right ventricular free wall is akinetic in the distaltwo- thirds. Severely reduced right ventricular systolic function. A pacemaker wire is seen in the right ventricle. Doppler studies suggest moderately elevated right sided pressures (elevated pulmonary pressure). Mitral Valve: The mitral valve is normal in mobility and thickness. Mild to moderate mitral regurgitation. Aortic Valve: The aortic valve opens well. Mildly sclerosed aortic valve cusps. Mild aortic valve regurgitation. Tricuspid Valve: Normal tricuspid valve. Moderate tricuspid regurgitation. Pulmonic Valve: Pulmonary valve not visualized. Great Vessels: IVC: The IVC is normal in size. There is no inspiratory collapse of the IVC. Pericardium: There is a minimal pericardial effusion. Procedure Staff Reading Group: [facility] Referring Physician: RUDY KING Property Consultant: June Brumfield, DEAN, RVT, RN, BSN Ordering Physician: FANI DENNEY Wall Motion Scores -1 - hyperkinesia, 0 - not evaluated, 1 - normal, 2 - hypokinesia, 3 - akinesia, 4 - dyskinesia Transthoracic echo (TTE) limited Result Date: 04/20/2025 1 1 [facility] Heart Station [address] [place] [address] (fax) Echocardiogram-[facility] Name: KRISTY DOHERTY Study Date: 04/20/2025 01:28 PM B/P: 83 mmHg/58 mmHg HR: 96 bpm Date of : 1955 Location: [facility] Height: 68 in. Age: 69 year(s) Patient Room: 3183 Weight: 179 lb. Gender: Male Patient Status: InPt BSA: 1.95 m2 Indication: Limited; evaluate pericardial effusion, S/P 35 mm Watchman FLX, H/O EF 25 - 30 %, Pacemaker, Cardiomyopathy Examination: Limited Echo/Limited Doppler, Color flow imaging Image Quality: Good Patient Consent: Procedure explained to patient Conclusions Left Ventricle: Global left ventricular systolic function is severely reduced. The EF is 30 % visually. The septum is abnormal in its motion. Right Ventricle: Right ventricular systolic function appears normal. A pacemaker wire is seen in the right ventricle. Doppler studies suggest normal right sided pressures. Pericardium: No pericardial effusion. Measurements Left Ventricle Label Value Normal Value LVEF visual 30 %Tricuspid Valve Label Value Normal Value RA Pressure 3 mmHg RVSP 24 mmHg TR Vmax 2.29 m/s Great Vessels Label Value Normal Value IVC 1.1 cm (1.2cm - 2.3cm) Valvular Assessment LVOT 0.7 - 1.1 m/sec Aortic Valve 1.0 - 1.7 m/sec Mitral Valve 0.6 - 1.3 m/sec Tricuspid Valve 0.3 - 0.7 m/sec Pulmonic Valve 0.6 - 0.9 m/sec Regurgitation Trivial Trivial Trivial Findings Left Ventricle: Global left ventricular systolic function is severely reduced. The EF is 30 % visually. The septum is abnormal in its motion. All scored left ventricular wall segments are hypokinetic. Right Ventricle: Right ventricular systolic function appears normal. A pacemaker wire is seen in the right ventricle. Doppler studies suggest normal right sided pressures. Mitral Valve: The mitral valve is normal in mobility and thickness. Trivial mitral regurgitation. Aortic Valve: Mildly sclerosed aortic valve cusps. Trivial aortic valve regurgitation. Tricuspid Valve: Normal tricuspid valve. Trivial tricuspid regurgitation. Great Vessels: IVC: The IVC is normal in size. There is inspiratory collapse of the IVC. Pericardium: No pericardial effusion. Procedure Staff Reading Group: [facility] Referring Physician:RUDY KING Property Consultant: June Brumfield RDCS, RVT, RN, BSN Ordering Physician: VENU SAMANIEGO Wall Motion Scores -1 - hyperkinesia, 0 - not evaluated, 1 - normal, 2 - hypokinesia, 3 - akinesia, 4 - dyskinesia Transthoracic echo (TTE) limited Result Date: 04/19/2025 1 1 [facility] Heart Station [address] [place] [address] [phone] (fax) Echocardiogram-[facility] Name: KRISTY DOHERTY Study Date: 04/19/2025 02:13 PM B/P: / HR: Date of : 1955 Location: [facility] Height: 68 in. Age: 69 year(s) Patient Room: [facility] Weight: 182 lb. Gender: Male Patient Status: InPt BSA: 1.96 m2 Indication: pericardialeffusion, h/o 35mm Watchman FLX Examination: Limited Echo Image Quality: Fair Findings Pericardium: Moderate pericardial effusion baseline. Post pericardiocentesis there is minimal pericardial effusion. Procedure Staff Reading Group: [facility] Referring Physician: RUDY KING Property Consultant: SAMI Starr, RDCS Ordering Physician: VENU SAMANIEGO Complete Echo (TTE) w/wo Imaging Agent, Strain, 3D, Bubble Study Result Date: 04/19/2025 1 1 [facility] Heart Station [address] [place] [address] (fax) Echocardiogram-[facility] Name: KRISTY DOHERTY Study Date: 04/19/2025 12:46 PM B/P: 97 mmHg/71 mmHg HR: Date of : 1955 Location: [facility] Height: 68 in. Age: 69 year(s) Patient Room: 3183 Weight: 182 lb. Gender: Male Patient Status: InPt BSA: 1.96 m2 Indication: Chest Pain, s/p 35mm Watchman FLX Examination: Echocardiogram (Complete) ImageQuality: Fair Patient Consent: Procedure explained to patient Conclusions Left Ventricle: The left ventricle is normal size. Global left ventricular systolic function is normal. The EF is 60 % visually. Left ventricular wall thickness is normal. No regional wall motion abnormality. Right Ventricle:The right ventricle appears normal in size. Right ventricular systolic function appears normal. Doppler studies suggest normal right sided pressures. Left Atrium: Watchman device visualized . The left atrium appears normal in size. Aortic Valve: Mild aortic valve regurgitation. Tricuspid Valve: Mild tricuspid regurgitation. Pericardium: There is a moderate circumfrential pericardial effusion. There is also, significant mitral inflow variations consistent with early tamponade physiology. Measurements Left Ventricle Label Value Normal Value LVOT VTI 11.1 cm (18cm - 22cm) LVOT PGmax 3 mmHg LVEF visual 60 % LVOT PGmean 1 mmHg Right Ventricle Label Value Normal Value TAPSE 0.97 cm Aortic Valve Label Value Normal Value AV DVI 0.5 AV VTI 23.1 cm Mitral Valve Label Value Normal Value MV E Vmax 0.54 m/s MV A Vmax 0.79 m/s MV E/A 0.68 MV E/E' lateral 7.6 MV E' lateral 0.07 m/s Tricuspid Valve Label Value Normal Value RA Pressure 3 mmHg RVSP 30 mmHg TR Vmax 2.59 m/s Valvular Assessment LVOT 0.7 - 1.1 m/sec Aortic Valve 1.0 - 1.7 m/sec Mitral Valve 0.6 - 1.3 m/sec Tricuspid Valve 0.3 - 0.7 m/sec Pulmonic Valve 0.6 - 0.9 m/sec Regurgitation Mild No Mild No Max Velocity 0.81 m/sec 1.62 m/s 0.54m/sec 1.02 m/s Max Gradient 10.00 mmHg 4.00 mmHg Mean Gradient 5.00 mmHg Findings Left Ventricle: The left ventricle is normal size. Global left ventricular systolic function is normal. The EF is 60 % visually. Left ventricular wall thickness is normal. No regional wall motion abnormality. Right Ventricle: The right ventricle appears normal in size. Right ventricular systolic function appears normal. Doppler studies suggest normal right sided pressures. Left Atrium: Watchman device visualized .The left atrium appears normal in size. Right Atrium: The right atrium appears normal in size. Mitral Valve: The mitral valve is normal in mobility and thickness. No mitral regurgitation. Aortic Valve: Focal aortic cusp thickening is noted. Mild aortic valve regurgitation. Tricuspid Valve: Normal tricuspid valve. Mild tricuspid regurgitation. Pulmonic Valve: Normal pulmonary valve. No pulmonary regurgitation. Aorta: The aortic root exhibits normal size. Great Vessels: IVC: Normal size and course of the IVC. Pericardium: There is a moderate circumfrential pericardial effusion. There is also, significant mitral inflow variations consistent with early tamponade physiology. Procedure Staff Reading Group: [facility] Property Consultant: Bryanna Cazares RDCS Ordering Physician: HAKAN Cnachola signed by MD Mitesh Vernon on 04/19/2025 at 01:44 PM Limited Transthoracic Echo (TTE) w/wo Contrast, Color Flow, Imaging Agent, Strain, 3D, Bubble Study Result Date: 02/07/2025 1 1 [facility] Heart Station [address] [place] [address] [phone] (fax) Echocardiogram-[facility] Name: KRISTY DOHERTY Study Date: 02/07/2025 08:02 AM B/P: 118 mmHg/85 mmHg HR: 63 bpm Date of : 1955 Location: [facility] Height: 68 in. Age: 69 year(s) Patient Room: [facility]6 Weight: 186 lb. Gender: Male Patient Status: InPt BSA: 1.98 m2 Indication: Atrial Fibrillation, Pacemaker, s/p 35mm Watchman FLX Examination: Limited Echo, Color flow imaging, Lumason Contrast Image Quality: Fair Patient Consent: Procedure explained to patient Exam Details Contrast: I.V. dose of Lumason Conclusions Left Ventricle: The left ventricle is [...] Aortic Valve: Mild aortic valve regurgitation. Overall C onclusions: Due to suboptimal imaging Lumason contrast was administered for opacification and better delineation of endocardial borders. Well seated 35mm Watchman FLX PRO. Measurements Left VentricleLabel Value Normal Value LVDd, 2D 5.86 cm (4.2cm - 5.9cm) LVDs, 2D 5.21 cm (2.1cm - 4cm) IVSd, 2D 0.91 cm (0.6cm - 1.1cm) LVPWd, 2D 1.06 cm (0.6cm - 1cm) LV Mass, 2D ASE 232.58 g LV Mass Index, 2D ASE 117.5 g/m?? (50g/m?? - 102.4g/m??) RWT, MM 0.36 (0 - 0.42) LVSVI, 2D 20.7 ml/m2 Aorta Label Value Normal Value AoRoot, 2D 3.4 cm (1.4cm - 3.8cm) Valvular Assessment LVOT 0.7 - 1.1 m/sec Aortic Valve1.0 - 1.7 m/sec Mitral Valve 0.6 - 1.3 m/sec Tricuspid Valve 0.3 - 0.7 m/sec Pulmonic Valve 0.6 - 0.9 m/sec Regurgitation Mild trivMil Findings Left Ventricle: The left ventricle is normal size. Global left ventricular systolic function is severely reduced. EF range is estimated at 25 % -30 %. Leftventricular wall thickness is increased. Diffuse global hypokinesis. Right Ventricle: The right ventricle is normal in size. Normal right ventricular systolic function. A pacemaker wire is seen in the right atrium and right ventricle. Left Atrium: The left atrium is normal in size. Right Atrium: The right atrium is normal in size. Mitral Valve: There is nonspecific thickening of the mitral valve leaflet. Trvial to mild mitral regurgitation. Aortic Valve: Focal aortic cusp thickening is noted. Mild aortic valve regurgitation. Tricuspid Valve: Normal tricuspid valve. Pulmonic Valve: Normal pulmonary valve. Aorta: The aortic root exhibits normal size. Great Vessels: IVC: The IVC is normal in size. Pericardium: No pericardial effusion. Procedure Staff Reading Group: [facility] Referring Physician: RUDY KING Property Consultant: SAMI Starr, RDCS Ordering Physician: CHUCK FUNEZ Transesophageal echo (MASON) Result Date: 12/01/2024 1 [facility] Heart Station [address] [facility] [address] [phone] (fax) Transesophageal Echocardiogram-[facility] Name: KRISTY DOHERTY Study Date: 12/01/2024 12:00 PM B/P: 134 mmHg/87 mmHg HR: 80 bpm Date of : 1955 Location: [facility] Height: 68 in. Age: 69 year(s) Patient Room: Weight: 194 lb. Gender: Male PatientStatus: OutPt BSA: 2.02 m2 Indication: Atrial Fibrillation, Pre-Watchman Examination: MASON, Color flow imaging Image Quality: Excellent Patient Consent: Informed, written consent was obtained for the procedure Exam Location: A MASON was performed in the [facility] without complications Anesthesia Pharyngeal anesthesia with viscous Lidocaine Conclusions Left Ventricle: The left ventricle is normal size. Global left ventricular systolic function is severely reduced. EF range is estimated at 25 % -30 %. Left ventricular wall thickness is normal. Diffuse global hypokinesis. Right Ventricle: The right ventricle appears normal in size. Normal right ventricular systolic function. Left Atrium: The left a trium is severely enlarged. Left Atrium Appendage: The left atrial appendage is monolobular. Normalleft atrial appendage, no thrombus seen. ROBB measutments [...] 50 micrograms Valvular Assessment LVOT 0.7 - 1.1m/sec Aortic Valve 1.0 - 1.7 m/sec Mitral Valve 0.6 - 1.3 m/sec Tricuspid Valve 0.3 - 0.7 m/sec Pulm onic Valve 0.6 - 0.9 m/sec Regurgitation Mod [...] atrium is severely enlarged. Left Atrium Appendage: Theleft atrial appendage is normal. The left atrial [...] is a minimal pericardial effusion. The Attending ysician was present and personally reviewed the examination with the fellow Procedure Staff ReadingGroup: [facility] Referring Physician: RUDY NADERER Property Consultant: DORIAN Walker Ordering Physician: Hay William MD No nuclear medicine results found for the past 12 months Relevant Imaging Results Transthoracic echo (TTE) limited 1 1 [facility] Heart Station [address] [place] [address] [phone] (fax) Echocardiogram-[facility] Name: KRISTY DOHERTY Study Date: 04/30/2025 07:02 AM B/P: 121 mmHg/100 mmHg HR: 87 bpm Date of : 1955 Location: [facility] Height: 68 in. Age: 69 year(s) Patient Room: 3217 Weight: 178 lb. Gender: Male Patient Status: InPt BSA: 1.94 m2 Indication: Limited; pericardial effusion, S/P 35 mm Watchman device FLX, Pericardiocentesis EF 20%, Pacemaker/AICD, Continuous hemodialysis Examination: Limited Echo/Limited Doppler, Color flow imaging Image Quality: Good Patient Consent: Procedure explained to patient Conclusions Left Ventricle: Global left ventricular systolic function is severely reduced. The EF is 20 % visually. Diffuse global hypokinesis. Right Ventricle: Mildly reduced right ventricular systolic function. Doppler studies suggest mildly elevated right sided pressures. Left Atrium: The left atrium appears enlarged. Mitral Valve: Mild mitral regurgitation. Aortic Valve: Mild aortic valve regurgitation. Tricuspid Valve: Moderate tricuspid regurgitation. Tricuspid Valve Measurements RVSP: 42 mmHg. Pericardium: No pericardial effusion. Measurements Left Ventricle Label Value Normal Value LVEF visual 20 % Tricuspid Valve Label Value Normal Value RA Pressure 8 mmHg RVSP 42 mmHg TR Vmax 2.93 m/s Great Vessels Label Value Normal Value IVC 2 cm (1.2cm - 2.3cm) Valvular Assessment LVOT 0.7 - 1.1 m/sec Aortic Valve 1.0 - 1.7 m/sec Mitral Valve 0.6 - 1.3 m/sec Tricuspid Valve 0.3 - 0.7 m/sec Pulmonic Valve 0.6 - 0.9 m/sec Regurgitation Mild Mild Moderate No Findings Left Ventricle: Global left ventricular systolic function is severely reduced. The EF is 20 % visually. Diffuse global hypokinesis. All scored left ventricular wall segments are hypokinetic. No thrombus is identified in the left ventricle. Right Ventricle: Mildly reduced right ventricular systolic function. A pacemaker wire is seen in the right ventricle. Doppler studies suggest mildly elevated right sided pressures. Left Atrium: The left atrium appears enlarged. Right Atrium: The right atrium is mildly enlarged. Mitral Valve: The mitral valve is normal in mobility and thickness. Mild mitral regurgitation. Aortic Valve: Mildly sclerosed aortic valve cusps. Mild aortic valve regurgitation. The aortic valve is trileaflet. Tricuspid Valve: Normal tricuspid valve. Moderate tricuspid regurgitation. Tricuspid Valve Measurements RVSP: 42 mmHg. Pulmonic Valve: Normal pulmonary valve. No pulmonary regurgitation. Great Vessels: IVC: The IVC is normal in size. There is no inspiratory collapse of the IVC. Pericardium: No pericardial effusion. The Attending Physician has reviewed the examination with the fellow Procedure Staff Reading Group: [facility] Referring Physician: RUDY KING Property Consultant: June Brumfield RDCS, RVT, RN, BSN Ordering Physician: Wil Sotomayor MD Wall Motion Scores -1 - hyperkinesia, 0 - not evaluated, 1 - normal, 2 - hypokinesia, 3 - akinesia, 4 - dyskinesia Assessment: Cardiogenic shock, cardiac index 1.3 L/min/m2, likely secondary to acute heart failure exacerbation- resolved Acute right ventricular failure Melanie 0.72 < 1 suggestive of significant RV failure RHC suggestive of biventricular failure Acute on chronic heart failure with reduced ejection fraction s/p ICD placement, NYHA II/III 04/23/2025 echo with EF 20%, severely reduced RV systolic function, mild-moderate MR, mild AV regurg, mild TR, elevated RVSP 49 Non-oliguric acute kidney injury, worsening with decreased urinary output - improving Likely underlying cardiorenal syndrome: type1 Moderate circumferential pericardial effusion s/p RHC and pericardiocentesis (300cc removal) with drain placement on 04/19/25 - unclear etiology, cannot rule out acute pericarditis Pericardial drain removed 04/20 after resolution of effusion on 04/20 echo Repeat echo limited 04/23/2025 with EF 20%, severely reduced RV systolic function, and no inspiratory collapse of IVC (new findings), and minimal pericardial effusion TTE 04/30: EF 20%, mild MR, AR, moderate TR, no pericardial effusion Frequent PVC's and runs of NSVT on telemetry, on amiodarone gtt Paroxysmal A-fib [id number] (heart failure, hypertension, age 65-74) s/p Watchman procedure on 02/06/2025 (due to prior bleeding with eliquis) Nonobstructive coronary artery disease Hyperlipidemia (unspecified) on lipitor 40 Plan: Off dobutamine since 04/30 Will slowly reintroduce GDMT as BP and kidney function tolerate: Continue aldactone 25, farxiga 10 today Continue holding entresto, toprol. Will up-titrate as tolerated by kidney function and blood pressure Off of CRRT, diuresis as per nephrology Hold colchicine 0.6 mg in setting of LINDA Stopped amiodarone drip on 04/29, will monitor Aggressive electrolyte replacement to maintain potassium > 4 and magnesium > 2 Cardiology will continue to follow. Please call with any questions. Alba Mena MD Internal medicine resident, PGY-3 [facility] Cosigned by Mitesh Vernon MD at 05/03/2025 1:55 PM EDT Associated attestation - Mitesh Vernon MD - 05/03/2025 1:55 PM EDT By using the attestations below, the signing clinician agrees that I have read and verify that thedocumentation has been personally reviewed by me and ensure that the documentation accurately reflects the encounter. GC: I personally saw this patient on the day of the encounter with Dr. Vivar, Dr. Franco, Niles Tolbert MS4, and Dr. Mena, performed the gonzáles portion(s) of the service and participated in the management and confirm the resident's documentation. Please note there may be an additional personal documentation from me. * Darcy Alfredo, [employer] - 05/03/2025 7:41 AM EDT Respiratory Progress Note Patient Name: Kristy Doherty : 1955 Today's Date: 05/03/2025 No Chest X-ray results found for the past 24 hours The findings from the last RT Protocol Assessment were as follows: Bronchodilator Assessment Grid RR: Less than 20 (Level 1) Dyspnea: No SOB Breath Sounds: Clear Resp History: Diagnosis pulmonary disease Oxygen to keep SpO2 >/= 92%: Room air or baseline O2 Peak Flow: N/A Level: Level 1 Aerosolized bronchodilator medication orders and frequency have been revised according to the Respiratory Care Clinical Practice Guidelines. Patient to remain on home therapy: As at home reconcile order with home meds if pulmonary status isstable. Level 1: Every 4 hours PRN for wheezing via nebulizer. Level 2: TID daily and Q4 PRN for wheezing. Level 3: QID and Q4 PRN as needed for wheezing. Level 4: Every 4 hours and as needed for wheezing. Level 5: Stat nebulizer time one and contact prescriber for frequency change. Note - The frequency level of therapy will not be lower than the frequency of home therapy as listed on the medication reconciliation record unless specifically ordered by the prescriber. Identify care plan and goals of therapy and perform ongoing clinical assessment to determine appropriateness, benefit, and improvement during the course of therapy. Patient will be re-evaluated every24 hours. Darcy Alfredo RRT 05/03/2025 * Daron Trevino, PT - 05/02/2025 2:41 PM EDT Physical Therapy Physical Therapy Evaluation Patient Name: Kristy Doherty : 1955 Today's Date: 05/02/2025 Start Time: 858 Stop Time: 922 Time Calculation (min): 24 min PT Evaluation Time Entry PT Evaluation (Moderate) Time Entry: 24 General Subjective: Maybe I like it rough. Session okay per RN. Pt supine in bed upon arrival, agreeable to PT session. Performed bed mobility, transfers, and amb this date. Returned to seated in recliner chair with call light/tray nearby. PT needs met prior to exit. RN aware of pt performance. Patient Summary: Pt is 69 y.o male presenting to [facility] as a transfer from [place] with c/o chest pain radiating to neck and back. Also hypotensive. Found pericardial effusion suggestive of tamponade.Pt had paracentesis which removed 300 mL and pigtail was placed, drain removed 04/20. Pt had HC 04/19. Echo 04/23 shows 20% EF with decreased right ventricle function. Had a fall on 04/23 after getting back into bed from EKG. Pt did strike his head. All imaging negative. Pt developed LINDA requiring fewdays of CRRT. PT Diagnosis: Decreased functional mobility Problem List[1] Medical History[2] Surgical History[3] Precautions Precautions Medical Precautions: fall risk, IV, telemetry (L fem triple lumen) Pain Pain Assessment Pain Assessment: No/denies pain Pain Score: 0 - No pain Cognition Cognition Overall Cognitive Status: Within Functional Limits Arousal/Alertness: Appropriate responses to stimuli Orientation Level: Oriented X4 Following Commands: Follows all commands and directions without difficulty Safety Judgment: Good awareness of safety precautions Awareness of Errors: Good awareness of errors made Deficits: Fully aware of deficits Attention Span: Appears intact Memory: Appears intact Problem Solving: Able to problem solve independently Communication: Intact General Assessment General Assessment Hearing: [place] Skin Integrity: Bruising/yellow discoloration noted to R forearm where pt reports old catheter sitewas. Hard to the touch. All other visualized areas intact Edema: None to note Hand Dominance: Right Home Living Home Living Type of Home: House Lives With: Significant other (Ms. Poon is s/o for over 32 years) Home Adaptive Equipment: Crutches Home Living Comments: Enter from garage into main level with family room + 1/2 bath. 4 steps up into kitchen, 3 into living room. Full flight to bedroom/full bath. Home Layout: Two level, Bed/bath upstairs, Stairs to alternate level with rails, Laundry in basement Alternate Level Stairs-Rails: Right Alternate Level Stairs-Number of Steps: 11-12 to second level where bedroom is located Home Access: Stairs to enter without rails Entrance Stairs-Rails: None Entrance Stairs-Number of Steps: 2 Bathroom Shower/Tub: Tub/shower unit Bathroom Toilet: Standard Bathroom Equipment: None Prior Level of Function Prior Function Level of [place]: Independent with ADLs and functional transfers, Independent with homemaking with ambulation Prior Functional Mobility: Independent without device History of Falls: States only fall was here in hospital on 04/23 2/2 bed height unexpectedly high. Denies any other recent falls Receives Help From: Family ADL Assistance: Independent Homemaking Assistance: Independent (Can complete, however s/o does most of homemaking tasks) Vision Basic Assessment Vision - Basic Assessment Current Vision: Wears glasses only for reading General Assessments Activity Tolerance Endurance: Stage II Stage II (METs 1.4-2.0) - Sittin-10 mins Activity Tolerance Comments: Pt requires increased time and effort for all mobility. Increased fatigue, no SOB, vitals WNL on RA Sensation Light Touch: No apparent deficits Sensation Comments: Denies numbness/tingling Proprioception Proprioception: No apparent deficits Perception Inattention/Neglect: Appears intact Initiation: Appears intact Motor Planning: Appears intact Perseveration: Not present Coordination Movements are Fluid and Coordinated: Yes Static Sitting Balance Static Sitting-Balance Support: Unilateral upper extremity supported, No upper extremity supported,Feet supported Static Sitting-Level of Assistance: Distant supervision Dynamic Sitting Balance Dynamic Sitting-Balance Support: Unilateral upper extremity supported, No upper extremity supported, Feet supported Dynamic Sitting-Balance: Forward lean, Reaching for objects Dynamic Sitting Balance-Level of Assistance: Close supervision Static Standing Balance Static Standing-Balance Support: No upper extremity supported Static Standing-Level of Assistance: Contact guard Dynamic Standing Balance Dynamic Standing-Balance Support: No upper extremity supported Dynamic Standing-Balance: Forward lean, Reaching for objects Dynamic Standing Balance-Level of Assistance: Contact guard Functional Assessments Bed Mobility Bed Mobility: Yes Bed Mobility 1 Bed Mobility From 1: Supine Bed Mobility Type 1: To Bed Mobility to 1: Short sit Level of Assistance 1: Close supervision Bed Mobility Comments 1: Pt able to manage BLEs/trunk from elevated HOB with use of hand rail Transfers Transfer: Yes Transfer 1 Transfer From 1: Bed, Sit Transfer Type 1: To Transfer to 1: Stand Technique 1: Sit to stand Transfer Device 1: none Transfer Level of Assistance 1: Contact guard Trials/Comments 1: Wider DIXIE. CGA throughout Transfers 2 Transfer From 2: Stand Transfer Type 2: To Transfer to 2: Chair with arms, Sit Technique 2: Stand to sit Transfer Device 2: none Transfer Level of Assistance 2: Contact guard, Minimal verbal cues Trials/Comments 2: VCs for safe technique with good carryover Ambulation Ambulation: Yes Ambulation 1 Surface 1: Level tile Device 1: No device Assistance 1: Contact guard, Minimal verbal cues Quality of Gait 1: Pt demos short, shuffled steps throughout with no assistive device. Mild instability with no major LOB. Comments/Distance (ft) 1: 10 ft Stairs Stairs: No Extremity Assessments RLE Assessment RLE Assessment: Within Functional Limits LLE Assessment LLE Assessment: Within Functional Limits Outcome Assessments 6 Clicks (Mobility) Help from another person turning from your back to your side while in a flat bed without using bedrails: A little Help from another person moving from lying on your back to sitting on the side of a flat bed without using bedrails: A little Help from another person moving to and from a bed to a chair (including a wheelchair): A little Help from another person standing up from a chair using your arms (e.g. wheelchair or bedside chair): A little Help from another person to walk in hospital room: A little Help from another person climbing 3-5 steps with a railing: A little Mobility 6 Clicks T-Score: 18 5 Times Sit to Stand 5x Sit to Stand (seconds): 16 Seconds Score Definition: Fall Risk (>12 sec) Sit to Stand Comments: Use of BUEs to push from chair with arm rests Assessment/Plan PT Assessment Impairments: Decreased endurance, Impaired balance, Decreased mobility, Impaired hearing, Decreasedskin integrity PT Assessment: Pt is 69 y.o male presenting with the above impairments, limiting safe and IND mobility. Pt able to tolerate within room ambulation distances, requiring increased time, effort, and CGA. Able to complete 5xSTS in 15.63 seconds indicating pt being at increased risk for falls. Pt would continue to benefit from skilled PT services throughout [facility] to address impairments and maximize safeand IND mobility. Prognosis: Good Evaluation/Treatment Tolerance: Patient tolerated treatment well Medical Staff Made Aware: Yes Barriers to Discharge: Access to adaptive/assistive products, Housing layout PT Education/Comments: PT POC. Safety with mobility Plan Level of assist: 1 assist Treatment/Interventions: Functional transfer training, LE strengthening/ROM, Endurance training, Bed mobility, Gait training, Balance training PT Plan: Skilled PT PT Frequency: 5 times per week PT Discharge Recommendations: Patient is able to return to prior living environment Equipment Recommended: shower chair, rolling walker PT - Discharge Recommendations Placed: Yes PT Goals Multi-Disciplinary Problems (from Physical Therapy) Active Problems Problem: Balance Start Date: 05/02/25 Goal Start Date Expected End Date End Date LTG - Patient will maintain standing and sitting balance to allow for completion of daily activities 05/02/25 05/23/25 -- Goal Start Date Expected End Date End Date STG - Maintains dynamic standing balance x5 minutes with upper extremity support as appropriate 05/02/25 05/23/25 -- Goal Start Date Expected End Date End Date STG - Maintains static standing balance x5 minutes with upper extremity support as appropriate 05/02/25 05/23/25 -- Goal Start Date Expected End Date End Date STG - Maintains dynamic sitting balance x10 minutes without upper extremity support 05/02/25 05/23/25 -- Problem: Mobility Start Date: 05/02/25 Goal Start Date Expected End Date End Date LTG - Patient will ambulate at least 50 feet with stand-by/contact guard using least restrictive assistive device for improvements in managing household ambulation 05/02/25 05/23/25 -- Goal Start Date Expected End Date End Date LTG - Patient will navigate full flight steps with stand-by/contact guard using device as appropriate 05/02/25 05/23/25 -- Problem: Transfers Start Date: 05/02/25 Goal Start Date Expected End Date End Date STG - Transfer from bed to chair with SBA using least restrictive assistive device 05/02/25 05/23/25 -- Goal Start Date Expected End Date End Date STG - Patient to transfer to and from sit to supine with no assistance 05/02/25 05/23/25 -- Goal Start Date Expected End Date End Date STG - Patient will transfer sit to and from stand with SBA using least restrictive assistive [id number] 05/23/25 -- Problem: PT Misc Start Date: 05/02/25 Goal Start Date Expected End Date End Date LTG - Pt will tolerate 30+ minute session with minimal rest breaks and vitals remaining in normal limits for improvements in endurance. 05/02/25 05/23/25 -- Goal Start Date Expected End Date End Date LTG - Pt will maximize BLE strength to facilitate ease and safety of functional mobility. 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 Chronic systolic heart failure (CMS/HCC) Depressive disorder Dyslipidemia Prediabetes Seasonal allergic rhinitis Steatosis of liver Vitamin D deficiency Cardiomyopathy (CMS/HCC) ICD (implantable cardioverter-defibrillator) in place Benign essential hypertension Chronic pansinusitis Hyperlipidemia Malignant tumor of prostate (CMS/HCC) Nasal polyp Mild persistent asthma without complication Paroxysmal atrial fibrillation (CMS/HCC) Atrial fibrillation (CMS/HCC) Chest pain Heart failure with reduced ejection fraction (CMS/HCC) Pericardial effusion Hyponatremia Leukocytosis Hypotension due to hypovolemia Sinus tachycardia Right ventricular dysfunction [2] Past Medical History: Diagnosis Date Asthma 07/29/2012 CHF (congestive heart failure) (CMS/HCC) Coronary artery disease History of malignant neoplasm of prostate 07/03/2022 Hypertension 07/03/2022 [3] Past Surgical History: Procedure Laterality Date BAND HEMORRHOIDECTOMY CARDIAC CATHETERIZATION PROSTATECTOMY SINUS SURGERY * Diana Beltran, OT - 05/02/2025 2:40 PM EDT Occupational Therapy Occupational Therapy Evaluation Patient Name: Kristy Doherty : 1955 Today's Date: 05/02/2025 Start Time: 858 Stop Time: 922 Time Calculation (min): 24 min OT Evaluation Time Entry OT Evaluation (Moderate) Time Entry: 24 General Subjective: Well what is the difference between the two therapies? RN ok for pt to be seen OOB atthis time. Pt semi-fowlers in bed and agreeable to session. Pt educated on purpose of session, completed functional tasks and functional ambulation. Pt left sitting in chair with call light and needsin reach. RN aware of pt performance. Patient Summary: 69yoM presents as t/f from OSH with chest pain radiating to neck and back. Pt hypotensive. Found to have a pericardial effusion suggestive of tamponade. Had paracentesis, with drain placed which has since been removed. On 04/23 pt fell out of hospital bed, reports the height was left up, sit head. Negative for any injuries. Pt developed LINDA, was t/f to MICU for CRRT. OT Diagnosis: Decreased indepednence in functional tasks 2o chest pain. Problem List[1] Medical History[2] Surgical History[3] Precautions Precautions Medical Precautions: fall risk, IV, telemetry (L fem triple lumen line) Pain Pain Assessment Pain Assessment: No/denies pain Pain Score: 0 - No pain (reports slight discomfort at R wrist) Cognition Cognition Overall Cognitive Status: Within Functional Limits Arousal/Alertness: Appropriate responses to stimuli Orientation Level: Oriented X4 Following Commands: Follows all commands and directions without difficulty Safety Judgment: Good awareness of safety precautions Awareness of Errors: Good awareness of errors made Deficits: Fully aware of deficits Attention Span: Appears intact Memory: Appears intact Problem Solving: Able to problem solve independently Communication: Intact General Assessment General Assessment Hearing: [place] Skin Integrity: Bruising/yellow discoloration noted to R forearm where pt reports old catheter sitewas. hard to touch when compared to other arm. All other visible skin intact Edema: None to note Hand Dominance: Right Home Living Home Living Type of Home: House Lives With: Significant other ( Mrs Peg significant other of 30+years) Home Adaptive Equipment: Crutches Home Living Comments: enter from garage into family room with 1/2 bath, up ~4 steps to kitchen level, the up f/f to bed/bath level Home Layout: Two level, Bed/bath upstairs, Stairs to alternate level with rails, Laundry in basement (split level, 1/2 bath on family room level, 1st floor, kitchen on 2nd floor, then up main flight of steps to bedrooms. Pt reports he spends most of time in family room) Alternate Level Stairs-Rails: Right Alternate Level Stairs-Number of Steps: 11-12 steps Home Access: Stairs to enter without rails Entrance Stairs-Rails: None Entrance Stairs-Number of Steps: 2 Bathroom Shower/Tub: Tub/shower unit Bathroom Toilet: Standard Bathroom Equipment: None Prior Level of Function Prior Function Level of [place]: Independent with ADLs and functional transfers, Independent with homemaking with ambulation Prior Functional Mobility: Independent without device History of Falls: reports only fall was here in hospital last week, denies falls prior. Receives Help From: Family ADL Assistance: Independent Homemaking Assistance: Independent (can complete but sig. other primarily completes.) Prior IADLs Static Sitting Balance Static Sitting Balance Static Sitting-Balance Support: Unilateral upper extremity supported, No upper extremity supported,Feet supported Static Sitting-Level of Assistance: Distant supervision Dynamic Sitting Balance Dynamic Sitting Balance Dynamic Sitting-Balance Support: Unilateral upper extremity supported, No upper extremity supported, Feet supported Dynamic Sitting-Balance: Forward lean, Reaching for objects Dynamic Sitting Balance-Level of Assistance: Close supervision Static Standing Balance Static Standing Balance Static Standing-Balance Support: No upper extremity supported Static Standing-Level of Assistance: Contact guard Dynamic Standing Balance Dynamic Standing Balance Dynamic Standing-Balance Support: No upper extremity supported Dynamic Standing-Balance: Forward lean, Reaching for objects Dynamic Standing Balance-Level of Assistance: Contact guard Dynamic Standing-Comments: mild unsteadiness initially with ambulation, improved with increased time. ADL ADL Grooming Assistance: Stand by Bathing Assistance: Minimal Bathing Deficit: Right lower leg including foot, Left lower leg including foot UE Dressing Assistance: Minimal LE Dressing Assistance: Minimal LE Dressing Deficit: Don/doff R sock, Don/doff L sock, Supervision/safety, Increased time to complete Toileting Assistance with Device: Minimal Bed Mobility Bed Mobility Bed Mobility: Yes Bed Mobility 1 Bed Mobility From 1: Supine Bed Mobility Type 1: To Bed Mobility to 1: Short sit Level of Assistance 1: Close supervision Bed Mobility Comments 1: Pt able to manage shira LEs/trunk. HOB slightly elevated, use of hand rail Transfers Transfers Ambulation comments: Pt completed functional ambulation around bed, no device, mild unsteadiness. CGA Transfer: Yes Transfer 1 Transfer From 1: Bed, Sit Transfer Type 1: To Transfer to 1: Stand Technique 1: Sit to stand Transfer Device 1: none Transfer Level of Assistance 1: Contact guard Trials/Comments 1: CGA thoughout for safety Transfers 2 Transfer From 2: Stand Transfer Type 2: To Transfer to 2: Sit, Chair with arms Technique 2: Stand to sit Transfer Device 2: none Transfer Level of Assistance 2: Contact guard, Minimal verbal cues Trials/Comments 2: Cues for hand placement, Objective General Assessments Activity Tolerance Endurance: Stage II Stage II (METs 1.4-2.0) - Sittin-10 mins Activity Tolerance Comments: Pt requires increased time for all functional tasks and ambulation, increased effort 2o pain, no SOB noted. vitals stable throughout. Vision - Basic Assessment Current Vision: Wears glasses only for reading Sensation Light Touch: No apparent deficits Sensation Comments: Pt denies numbness and tingling all extremities Proprioception Proprioception: No apparent deficits Perception Inattention/Neglect: Appears intact Initiation: Appears intact Motor Planning: Appears intact Perseveration: Not present Coordination Movements are Fluid and Coordinated: Yes Hand Function Coordination: Functional Extremity Assessments RUE Assessment RUE Assessment: Within Functional Limits LUE Assessment LUE Assessment: Within Functional Limits Outcome Assessments AM-PAC 6 Clicks Putting on and taking off regular lower body clothing?: A Little (Min Assist/Contact Guard/Supervision) Bathing(Including washing,rinsing,drying)?: A Little (Min Assist/Contact Guard/Supervision) Toileting, which includes using the toilet,bedpan,or urinal?: A Little (Min Assist/Contact Guard/Supervision) Putting on and taking off regular upper body clothing?: A Little (Min Assist/Contact Guard/Supervision) Taking care of personal grooming such as brushing teeth?: A Little (Min Assist/Contact Guard/Supervision) Eating meals?: None (Independent) Total Score OT [facility]: 19 Assessment/Plan OT Assessment OT Impairments: Decreased ADL status, Decreased safe judgment during ADL, Decreased endurance, Decreased IADLs, Decreased trunk control for functional activities, Decreased functional mobility OT Assessment/PHYSICIAN SCRIBE Summary: Pt admit with chest pain pt with prolonged hospital stay and demos decreased overall activity tolerance, decreased balance impacting indepednence when completing functionaltasks and ambulation. Pt would benefit from continued skilled occupational therapy to maximize level of indepdnence when completing basic ADLs. Prognosis: Good Evaluation/Treatment Tolerance: Patient tolerated treatment well Medical Staff Made Aware: Yes OT Education/Comments: Purpose of session, safety, fall prevention Plan Level of assist: 1 assist Treatment Interventions: ADL retraining, Functional transfer training, Endurance training, Patient/family training, Equipment evaluation/education, Neuromuscular reeducation OT Plan: Skilled OT OT Frequency: 5 times per week OT Discharge Recommendations: Patient is able to return to prior living environment Equipment Recommended: rolling walker, shower chair OT - Discharge Recommendations Placed: Yes OT Goals Multi-Disciplinary Problems (from Occupational Therapy) Active Problems Problem: Bathing Start Date: 05/02/25 Goal Start Date Expected End Date End Date LTG - Patient will utilize adaptive techniques to bathe body with stand- by/contact guard 05/02/25 05/09/25 -- Problem: Dressings Lower Extremities Start Date: 05/02/25 Goal Start Date Expected End Date End Date LTG - Patient will dress lower body with stand-by/contact guard 05/02/25 05/09/25 -- Problem: Dressing Upper Extremities Start Date: 05/02/25 Goal Start Date Expected End Date End Date LTG - Patient will complete upper body dressing with no assistance 05/02/25 05/09/25 -- Problem: Grooming Start Date: 05/02/25 Goal Start Date Expected End Date End Date STG - Patient will tolerate standing sink side to complete grooming with no assistance 05/02/25 05/09/25 -- Problem: Toileting Start Date: 05/02/25 Goal Start Date Expected End Date End Date LTG - Patient will utilize adaptive techniques/equipment to complete daily toileting tasks with modified independent 05/02/25 05/09/25 -- Problem: Transfers Start Date: 05/02/25 Goal Start Date Expected End Date End Date LTG - Patient will perform bed mobility with no assistance 05/02/25 05/09/25 -- Problem: OT Misc Start Date: 05/02/25 Goal Start Date Expected End Date End Date Pt will demo increased activity tolerance by participating in 20 minutes of dyn. sitting/standing tasks in least restrictive environment with SBA/CGA as needed for safe completion of all functional tasks and functional ambulation/transfers. 05/02/25 05/09/25 -- Goal Start Date Expected End Date End Date Pt will complete functional transfers and functional ambulation with modified independent using least restrictive device. 05/02/25 05/09/25 -- ASwansinger OTR/L, MOT [1] Patient Active Problem List Diagnosis New onset of congestive heart failure (CMS/HCC) Uncomplicated asthma History of malignant neoplasm of prostate Hypomagnesemia Primary hypertension Syncope and collapse Coronary artery disease involving [place]vi coronary artery of che[place]vi heart with angina pectoris Chronic systolic heart failure (CMS/HCC) Depressive disorder Dyslipidemia Prediabetes Seasonal allergic rhinitis Steatosis of liver Vitamin D deficiency Cardiomyopathy (CMS/HCC) ICD (implantable cardioverter-defibrillator) in place Benign essential hypertension Chronic pansinusitis Hyperlipidemia Malignant tumor of prostate (CMS/HCC) Nasal polyp Mild persistent asthma without complication Paroxysmal atrial fibrillation (CMS/HCC) Atrial fibrillation (CMS/HCC) Chest pain Heart failure with reduced ejection fraction (CMS/HCC) Pericardial effusion Hyponatremia Leukocytosis Hypotension due to hypovolemia Sinus tachycardia Right ventricular dysfunction [2] Past Medical History: Diagnosis Date Asthma 07/29/2012 CHF (congestive heart failure) (CMS/HCC) Coronary artery disease History of malignant neoplasm of prostate 07/03/2022 Hypertension 07/03/2022 [3] Past Surgical History: Procedure Laterality Date BAND HEMORRHOIDECTOMY CARDIAC CATHETERIZATION PROSTATECTOMY SINUS SURGERY * Alba Mena MD - 05/02/2025 1:13 PM EDT Images from the original note were not included. Cardiology Progress Note Cardiogenic shock Subjective Kristy Doherty is a 69 y.o. male with significant medical history of hypertension, paroxysmal atrial fibrillation s/p Watchman 02/06/2025, chronic HFrEf (25-30%) s/p ICD 08/2022, and CAD who presented to the hospital for chest pain. Patient reports having substernal chest pain, radiating to his back and neck since the prior evening. Patient reports that his blood pressure has been running in the low 90s over 70s over the past couple of weeks. Denies any recent fever or chills/cough. Patient reports being compliant with all his medications. Subjective: Patient was seen and examined at bedside this morning. Afebrile and HDS. His blood pressure is improved, 135/79. His Cr jumped to 1.69 compared 1.01 yesterday. He reports significantly well compared to yesterday. Denies any chest pain, sob, nausea, vomiting or any other complaints. He was able to work with physical therapy, walked around the corridor. Tolerated it well and denied any dyspnea on exertion. Objective: Patient Vitals for the past 24 hrs: BP Temp Temp src Pulse Resp SpO2 Weight 05/02/25 0900 108/81 -- -- 83 17 96 % -- 05/02/25 0823 -- -- -- 82 16 97 % -- 05/02/25 0600 135/79 -- -- 83 20 91 % -- 05/02/25 0500 108/66 -- -- 86 12 93 % 83.1 kg (183 lb 3.2 oz) 05/02/25 0400 118/71 36 ??C (96.8 ??F) Temporal 83 17 96 % -- 05/02/25 0300 123/72 -- -- 82 17 94 % -- 05/02/25 0200 109/68 -- -- 84 20 97 % -- 05/02/25 0100 125/72 -- -- 87 19 96 % -- 05/02/25 0000 114/73 36 ??C (96.8 ??F) Temporal 84 16 96 % -- 05/01/25 2300 120/72 -- -- 86 17 97 % -- 05/01/25 2200 116/76 -- -- 90 15 97 % -- 05/01/25 2100 110/69 -- -- 89 13 96 % -- 05/01/25 2000 104/69 36.3 ??C (97.3 ??F) Temporal 92 17 95 % -- 05/01/251954 -- -- -- 91 14 96 % -- 05/01/25 1900 122/78 -- -- 88 19 96 % -- 05/01/25 1800 115/70 -- -- 87 15 98 % -- 05/01/25 1700 121/74 -- -- 88 17 98 % -- 05/01/25 1600 115/69 36.5 ??C (97.7 ??F) -- 90 21 100 % -- 05/01/25 1500 114/70 36.7 ??C (98.1 ??F) -- 90 22 96 % -- 05/01/25 1400 106/81 36.6 ??C (97.9 ??F) -- 90 17 95 % -- Physical Examination: GENERAL: AOx3, in no acute distress. NECK: No JVD present. CARDIAC: RRR. No murmur, rubs, or gallops. RESPIRATORY: CTAB, no increased effort of breathing. ABDOMEN: Soft, nontender, nondistended. EXTREMITIES: No lower extremity edema, peripheral pulses are 2+ bilaterally. Relevant Lab Results Encounter Date: 04/19/25 ECG 12 lead Result Value Ventricular Rate 120 Atrial Rate 120 ME Interval 198 QRS DURATION 102 QT Interval 294 QTC CALCULATION(BAZETT) 415 P Welch 64 R-Welch 38 T Wave Welch 116 Impression Sinus tachycardia Low voltage QRS Septal infarct , age undetermined Abnormal ECG When compared with ECG of 19-APR-2025 18:24, Premature ventricular complexes are no longer Present Confirmed by Jeffy VERNON, MITESH Pruett ([id number]) on 04/23/2025 8:14:48 AM Lab Results Component Value Date TROPONINI 0.04 07/02/2022 Transthoracic echo (TTE) limited Result Date: 04/30/2025 1 1 [facility] Heart Station [address] [place] [address] [phone] (fax) Echocardiogram-[facility] Name: KRISTY DOHERTY Study Date: 04/30/2025 07:02 AM B/P: 121 mmHg/100 mmHg HR: 87 bpm Date of : 1955 Location:[facility] Height: 68 in. Age: 69 year(s) Patient Room: 3217 Weight: 178 lb. Gender: Male Patient Status:InPt BSA: 1.94 m2 Indication: Limited; pericardial effusion, S/P 35 mm Watchman device FLX, Pericardiocentesis EF 20%, Pacemaker/AICD, Continuous hemodialysis Examination: Limited Echo/Limited Doppler, Color flow imaging Image Quality: Good Patient Consent: Procedure explained to patient Conclusions Left Ventricle: Global left ventricular systolic function is severely reduced. The EF is 20 % visually. Diffuse global hypokinesis. Right Ventricle: Mildly reduced right ventricular systolic function. Doppler studies suggest mildly elevated right sided pressures. Left Atrium: The left atrium appears enlarged. Mitral Valve: Mild mitral regurgitation. Aortic Valve: Mild aortic valve regurgitation. Tricuspid Valve: Moderate tricuspid regurgitation. Tricuspid Valve Measurements RVSP: 42 mmHg. Pericardium: No pericardial effusion. Measurements Left Ventricle Label Value Normal Value LVEF visual 20 % Tricuspid Valve Label Value Normal Value RA Pressure 8 mmHg RVSP 42 mmHg TR Vmax 2.93 m/s Great Vessels Label Value Normal Value IVC 2 cm (1.2cm - 2.3cm) Valvular Assessment LVOT 0.7 - 1.1 m/sec Aortic Valve 1.0 - 1.7 m/sec Mitral Valve 0.6 - 1.3 m/sec Tricuspid Valve 0.3 - 0.7 m/sec Pulmonic Valve 0.6 - 0.9 m/sec Regurgitation Mild Mild Moderate No Findings Left Ventricle: Global left ventricular systolic function is severely reduced. The EF is 20 % visually. Diffuse global hypokinesis. Allscored left ventricular wall segments are hypokinetic. No thrombus is identified in the left ventricle. Right Ventricle: Mildly reduced right ventricular systolic function. A pacemaker wire is seen in the right ventricle. Doppler studies suggest mildly elevated right sided pressures. Left Atrium: The left atrium appears enlarged. Right Atrium: The right atrium is mildly enlarged. Mitral Valve: The mitral valve is normal in mobility and thickness. Mild mitral regurgitation. Aortic Valve: Mildly sclerosed aortic valve cusps. Mild aortic valve regurgitation. The aortic valve is trileaflet. Tricuspid Valve: Normal tricuspid valve. Moderate tricuspid regurgitation. Tricuspid Valve Measurements RVSP: 42 mmHg. Pulmonic Valve: Normal pulmonary valve. No pulmonary regurgitation. Great Vessels: IVC: The IVC is normal in size. There is no inspiratory collapse of the IVC. Pericardium: No pericardial effusion. The Attending Physician has reviewed the examination with the fellow Procedure Staff Reading Group: [facility] Referring Physician: RUDY KING Property Consultant: June Brumfield RDCS,RVT, RN, BSN Ordering Physician: Wil Sotomayor MD Wall Motion Scores -1 - hyperkinesia, 0 - not evaluated, 1 - normal, 2 - hypokinesia, 3 - akinesia, 4 - dyskinesia Limited Echo (TTE) w/wo Limited Doppler, Color Flow, Imaging Agent, Strain, 3D, Bubble Study Result Date: 04/23/2025 1 1 [facility] Heart Station [address] [place] [address] [phone] (fax) Echocardiogram-[facility] Name: KRISTY DOHERTY Study Date: 04/23/2025 07:26 AM B/P: 90 mmHg/74 mmHg HR: 111 bpm Date of : 1955 Location: [facility] Height: 68 in. Age: 69 year(s) Patient Room: 3183 Weight: 177 lb. Gender: Male Patient Status: InPt BSA: 1.94 m2 Indication: Limited; pericardial effusion, S/P 35 mm Watchman device FLX, S/P Pericardiocentesis, H/O 25-30%, Pacemaker/AICD Examination: Limited Echo/Limited Doppler, Color flow imaging Image Quality: Good Patient Consent: Procedure explained to patient Conclusions Left Ventricle: Global left ventricular systolic function is severely reduced. The EF is 20 % visually. Regional wall motion abnormalities (see diagram). Right Ventricle: Severely reduced right ventricular systolic function. A pacemaker wire is seen in the right ventricle. Doppler studies suggest moderately elevated right sided pressures (elevated pulmonary pressure). Mitral Valve: Mild to moderate mitral regurgitation. Aortic Valve: Mild aortic valve regurgitation. Tricuspid Valve: Moderate tricuspid regurgitation. Overall Conclusions: Decrease in right ventricular systolic function and increase in tricuspid insufficiency when compared to previous study. Measurements Left Ventricle Label Value Normal Value LVEF visual 20 % Tricuspid Valve Label Value Normal Value RA Pressure 8 mmHg RVSP 49 mmHg TR Vmax 3.22 m/s Great Vessels Label Value Normal Value IVC 2 cm (1.2cm - 2.3cm) Valvular Assessment LVOT 0.7 - 1.1 m/sec Aortic Valve 1.0 - 1.7 m/sec Mitral Valve 0.6 - 1.3 m/sec Tricuspid Valve 0.3 - 0.7 m/sec Pulmonic Valve 0.6 - 0.9 m/sec Regurgitation Mild MildMod Moderate Findings Left Ventricle: Global left ventricular systolic function is severely reduced. The EF is 20 % visually. Regional wall motion abnormalities (see diagram). The basal anterior, basal anteroseptal, basal inferoseptal, basal inferior, basal inferolateral, basal anterolateral, mid inferoseptal, mid inferior and mid inferolateral left ventricular wall segments are hypokinetic. The mid anterior, mid anteroseptal, mid anterolateral, apical anterior, apical septal, apical inferior, apical lateral and apex left ventricular wall segments are akinetic. Right Ventricle: The right ventricular free wall is akinetic in the distaltwo- thirds. Severely reduced right ventricular systolic function. A pacemaker wire is seen in the right ventricle. Doppler studies suggest moderately elevated right sided pressures (elevated pulmonary pressure). Mitral Valve: The mitral valve is normal in mobility and thickness. Mild to moderate mitral regurgitation. Aortic Valve: The aortic valve opens well. Mildly sclerosed aortic valve cusps. Mild aortic valve regurgitation. Tricuspid Valve: Normal tricuspid valve. Moderate tricuspid regurgitation. Pulmonic Valve: Pulmonary valve not visualized. Great Vessels: IVC: The IVC is normal in size. There is no inspiratory collapse of the IVC. Pericardium: There is a minimal pericardial effusion. Procedure Staff Reading Group: [facility] Referring Physician: RUDY KING Property Consultant: June Brumfield, DEAN, RVT, RN, BSN Ordering Physician: FANI DENNEY Wall Motion Scores -1 - hyperkinesia, 0 - not evaluated, 1 - normal, 2 - hypokinesia, 3 - akinesia, 4 - dyskinesia Transthoracic echo (TTE) limited Result Date: 04/20/2025 1 1 [facility] Heart Station [address] [place] [address] [phone] (fax) Echocardiogram-[facility] Name: KRISTY DOHERTY Study Date: 04/20/2025 01:28 PM B/P: 83 mmHg/58 mmHg HR: 96 bpm Date of : 1955 Location: [facility] Height: 68 in. Age: 69 year(s) Patient Room: 3183 Weight: 179 lb. Gender: Male Patient Status: InPt BSA: 1.95 m2 Indication: Limited; evaluate pericardial effusion, S/P 35 mm Watchman FLX, H/O EF 25 - 30 %, Pacemaker, Cardiomyopathy Examination: Limited Echo/Limited Doppler, Color flow imaging Image Quality: Good Patient Consent: Procedure explained to patient Conclusions Left Ventricle: Global left ventricular systolic function is severely reduced. The EF is 30 % visually. The septum is abnormal in its motion. Right Ventricle: Right ventricular systolic function appears normal. A pacemaker wire is seen in the right ventricle. Doppler studies suggest normal right sided pressures. Pericardium: No pericardial effusion. Measurements Left Ventricle Label Value Normal Value LVEF visual 30 %Tricuspid Valve Label Value Normal Value RA Pressure 3 mmHg RVSP 24 mmHg TR Vmax 2.29 m/s Great Vessels Label Value Normal Value IVC 1.1 cm (1.2cm - 2.3cm) Valvular Assessment LVOT 0.7 - 1.1 m/sec Aortic Valve 1.0 - 1.7 m/sec Mitral Valve 0.6 - 1.3 m/sec Tricuspid Valve 0.3 - 0.7 m/sec Pulmonic Valve 0.6 - 0.9 m/sec Regurgitation Trivial Trivial Trivial Findings Left Ventricle: Global left ventricular systolic function is severely reduced. The EF is 30 % visually. The septum is abnormal in its motion. All scored left ventricular wall segments are hypokinetic. Right Ventricle: Right ventricular systolic function appears normal. A pacemaker wire is seen in the right ventricle. Doppler studies suggest normal right sided pressures. Mitral Valve: The mitral valve is normal in mobility and thickness. Trivial mitral regurgitation. Aortic Valve: Mildly sclerosed aortic valve cusps. Trivial aortic valve regurgitation. Tricuspid Valve: Normal tricuspid valve. Trivial tricuspid regurgitation. Great Vessels: IVC: The IVC is normal in size. There is inspiratory collapse of the IVC. Pericardium: No pericardial effusion. Procedure Staff Reading Group: [facility] Referring Physician:RUDY KING Property Consultant: June Brumfield RDCS, RVT, RN, BSN Ordering Physician: VENU SAMANIEGO Wall Motion Scores -1 - hyperkinesia, 0 - not evaluated, 1 - normal, 2 - hypokinesia, 3 - akinesia, 4 - dyskinesia Transthoracic echo (TTE) limited Result Date: 04/19/2025 1 1 [facility] Heart Station [address] [place] [address] [phone] (fax) Echocardiogram-[facility] Name: KRISTY DOHERTY Study Date: 04/19/2025 02:13 PM B/P: / HR: Date of : 1955 Location: [facility] Height: 68 in. Age: 69 year(s) Patient Room: 3183 Weight: 182 lb. Gender: Male Patient Status: InPt BSA: 1.96 m2 Indication: pericardialeffusion, h/o 35mm Watchman FLX Examination: Limited Echo Image Quality: Fair Findings Pericardium: Moderate pericardial effusion baseline. Post pericardiocentesis there is minimal pericardial effusion. Procedure Staff Reading Group: [facility] Referring Physician: RUDY KING Property Consultant: SAMI Starr, RDCS Ordering Physician: VENU SAMANIEGO Complete Echo (TTE) w/wo Imaging Agent, Strain, 3D, Bubble Study Result Date: 04/19/2025 1 1 [facility] Heart Station [address] [place] [address] [phone] (fax) Echocardiogram-[facility] Name: KRISTY DOHERTY Study Date: 04/19/2025 12:46 PM B/P: 97 mmHg/71 mmHg HR: Date of : 1955 Location: [facility] Height: 68 in. Age: 69 year(s) Patient Room: 3183 Weight: 182 lb. Gender: Male Patient Status: InPt BSA: 1.96 m2 Indication: Chest Pain, s/p 35mm Watchman FLX Examination: Echocardiogram (Complete) ImageQuality: Fair Patient Consent: Procedure explained to patient Conclusions Left Ventricle: The left ventricle is normal size. Global left ventricular systolic function is normal. The EF is 60 % visually. Left ventricular wall thickness is normal. No regional wall motion abnormality. Right Ventricle:The right ventricle appears normal in size. Right ventricular systolic function appears normal. Doppler studies suggest normal right sided pressures. Left Atrium: Watchman device visualized . The left atrium appears normal in size. Aortic Valve: Mild aortic valve regurgitation. Tricuspid Valve: Mild tricuspid regurgitation. Pericardium: There is a moderate circumfrential pericardial effusion. There is also, significant mitral inflow variations consistent with early tamponade physiology. Measurements Left Ventricle Label Value Normal Value LVOT VTI 11.1 cm (18cm - 22cm) LVOT PGmax 3 mmHg LVEF visual 60 % LVOT PGmean 1 mmHg Right Ventricle Label Value Normal Value TAPSE 0.97 cm Aortic Valve Label Value Normal Value AV DVI 0.5 AV VTI 23.1 cm Mitral Valve Label Value Normal Value MV E Vmax 0.54 m/s MV A Vmax 0.79 m/s MV E/A 0.68 MV E/E' lateral 7.6 MV E' lateral 0.07 m/s Tricuspid Valve Label Value Normal Value RA Pressure 3 mmHg RVSP 30 mmHg TR Vmax 2.59 m/s Valvular Assessment LVOT 0.7 - 1.1 m/sec Aortic Valve 1.0 - 1.7 m/sec Mitral Valve 0.6 - 1.3 m/sec Tricuspid Valve 0.3 - 0.7 m/sec Pulmonic Valve 0.6 - 0.9 m/sec Regurgitation Mild No Mild No Max Velocity 0.81 m/sec 1.62 m/s 0.54m/sec 1.02 m/s Max Gradient 10.00 mmHg 4.00 mmHg Mean Gradient 5.00 mmHg Findings Left Ventricle: The left ventricle is normal size. Global left ventricular systolic function is normal. The EF is 60 % visually. Left ventricular wall thickness is normal. No regional wall motion abnormality. Right Ventricle: The right ventricle appears normal in size. Right ventricular systolic function appears normal. Doppler studies suggest normal right sided pressures. Left Atrium: Watchman device visualized .The left atrium appears normal in size. Right Atrium: The right atrium appears normal in size. Mitral Valve: The mitral valve is normal in mobility and thickness. No mitral regurgitation. Aortic Valve: Focal aortic cusp thickening is noted. Mild aortic valve regurgitation. Tricuspid Valve: Normal tricuspid valve. Mild tricuspid regurgitation. Pulmonic Valve: Normal pulmonary valve. No pulmonary regurgitation. Aorta: The aortic root exhibits normal size. Great Vessels: IVC: Normal size and course of the IVC. Pericardium: There is a moderate circumfrential pericardial effusion. There is also, significant mitral inflow variations consistent with early tamponade physiology. Procedure Staff Reading Group: [facility] Property Consultant: Bryanna Cazares RDCS Ordering Physician: HAKAN Canchola signed by MD Mitesh Vernon on 04/19/2025 at 01:44 PM Limited Transthoracic Echo (TTE) w/wo Contrast, Color Flow, Imaging Agent, Strain, 3D, Bubble Study Result Date: 02/07/2025 1 1 [facility] Heart Station [address] [facility] [address] [phone] (fax) Echocardiogram-[facility] Name: KRISTY DOHERTY Study Date: 02/07/2025 08:02 AM B/P: 118 mmHg/85 mmHg HR: 63 bpm Date of : 1955 Location: [facility] Height: 68 in. Age: 69 year(s) Patient Room: [facility]6 Weight: 186 lb. Gender: Male Patient Status: InPt BSA: 1.98 m2 Indication: Atrial Fibrillation, Pacemaker, s/p 35mm Watchman FLX Examination: Limited Echo, Color flow imaging, Lumason Contrast Image Quality: Fair Patient Consent: Procedure explained to patient Exam Details Contrast: I.V. dose of Lumason Conclusions Left Ventricle: The left ventricle is [...] borders. Well seated 35mm Watchman FLX PRO. Measurements Left VentricleLabel Value Normal Value LVDd, 2D 5.86 cm (4.2cm - 5.9cm) LVDs, 2D 5.21 cm (2.1cm - 4cm) IVSd, 2D 0.91 cm (0.6cm - 1.1cm) LVPWd, 2D 1.06 cm (0.6cm - 1cm) LV Mass, 2D ASE 232.58 g LV Mass Index, 2D ASE 117.5 g/m?? (50g/m?? - 102.4g/m??) RWT, MM 0.36 (0 - 0.42) LVSVI, 2D 20.7 ml/m2 Aorta Label Value Normal Value AoRoot, 2D 3.4 cm (1.4cm - 3.8cm) Valvular Assessment LVOT 0.7 - 1.1 m/sec Aortic Valve1.0 - 1.7 m/sec Mitral Valve 0.6 - 1.3 m/sec Tricuspid Valve 0.3 - 0.7 m/sec Pulmonic Valve 0.6 - 0.9 m/sec Regurgitation Mild trivMil Findings Left Ventricle: The left ventricle is normal size. Global left ventricular systolic function is severely reduced. EF range is estimated at 25 % -30 %. Leftventricular wall thickness is increased. Diffuse global hypokinesis. Right Ventricle: The right ventricle is normal in size. Normal right ventricular systolic function. A pacemaker wire is seen in the right atrium and right ventricle. Left Atrium: The left atrium is normal in size. Right Atrium: The right atrium is normal in size. Mitral Valve: There is nonspecific thickening of the mitral valve leaflet. Trvial to mild mitral regurgitation. Aortic Valve: Focal aortic cusp thickening is noted. Mild aortic valve regurgitation. Tricuspid Valve: Normal tricuspid valve. Pulmonic Valve: Normal pulmonary valve. Aorta: The aortic root exhibits normal size. Great Vessels: IVC: The IVC is normal in size. Pericardium: No pericardial effusion. Procedure Staff Reading Group: [facility] Referring Physician: RUDY KING Property Consultant: SAMI Starr, RDCS Ordering Physician: CHUCK FUNEZ Transesophageal echo (MASON) Result Date: 12/01/2024 1 [facility] Heart Station [address] [id number] [phone] (fax) Transesophageal Echocardiogram-[facility] Name: KRISTY DOHERTY Study Date: 12/01/2024 12:00 PM B/P: 134 mmHg/87 mmHg HR: 80 bpm Date of : 1955 Location: [facility] Height: 68 in. Age: 69 year(s) Patient Room: Weight: 194 lb. Gender: Male PatientStatus: OutPt BSA: 2.02 m2 Indication: Atrial Fibrillation, Pre-Watchman Examination: MASON, Color flow imaging Image Quality: Excellent Patient Consent: Informed, written consent was obtained for the procedure Exam Location: A MASON was performed in the [facility] without complications Anesthesia Pharyngeal anesthesia with viscous Lidocaine Conclusions Left Ventricle: The left ventricle is normal size. Global left ventricular systolic function is severely reduced. EF range is estimated at 25 % -30 %. Left ventricular wall thickness is normal. Diffuse global hypokinesis. Right Ventricle: The right ventricle appears normal in size. Normal right ventricular systolic function. Left Atrium: The left a trium is severely enlarged. Left Atrium Appendage: The left atrial appendage is monolobular. Normalleft atrial appendage, no thrombus seen. ROBB measutments [...] 50 micrograms Valvular Assessment LVOT 0.7 - 1.1m/sec Aortic Valve 1.0 - 1.7 m/sec Mitral Valve 0.6 - 1.3 m/sec Tricuspid Valve 0.3 - 0.7 m/sec Pulm onic Valve 0.6 - 0.9 m/sec Regurgitation Mod [...] atrium is severely enlarged. Left Atrium Appendage: Theleft atrial appendage is normal. The left atrial [...] is a minimal pericardial effusion. The Attending Ph ysician was present and personally reviewed the examination with the fellow Procedure Staff ReadingGroup: [facility] Referring Physician: RUDY KING Property Consultant: DORIAN Walker Ordering Physician: Hay William MD No nuclear medicine results found for the past 12 months Relevant Imaging Results Transthoracic echo (TTE) limited 1 1 [facility] Heart Station [address] [place] [address] [phone] (fax) Echocardiogram-[facility] Name: KRISTY DOHERTY Study Date: 04/30/2025 07:02 AM B/P: 121 mmHg/100 mmHg HR: 87 bpm Date of : 1955 Location: [facility] Height: 68 in. Age: 69 year(s) Patient Room: 3217 Weight: 178 lb. Gender: Male Patient Status: InPt BSA: 1.94 m2 Indication: Limited; pericardial effusion, S/P 35 mm Watchman device FLX, Pericardiocentesis EF 20%, Pacemaker/AICD, Continuous hemodialysis Examination: Limited Echo/Limited Doppler, Color flow imaging Image Quality: Good Patient Consent: Procedure explained to patient Conclusions Left Ventricle: Global left ventricular systolic function is severely reduced. The EF is 20 % visually. Diffuse global hypokinesis. Right Ventricle: Mildly reduced right ventricular systolic function. Doppler studies suggest mildly elevated right sided pressures. Left Atrium: The left atrium appears enlarged. Mitral Valve: Mild mitral regurgitation. Aortic Valve: Mild aortic valve regurgitation. Tricuspid Valve: Moderate tricuspid regurgitation. Tricuspid Valve Measurements RVSP: 42 mmHg. Pericardium: No pericardial effusion. Measurements Left Ventricle Label Value Normal Value LVEF visual 20 % Tricuspid Valve Label Value Normal Value RA Pressure 8 mmHg RVSP 42 mmHg TR Vmax 2.93 m/s Great Vessels Label Value Normal Value IVC 2 cm (1.2cm - 2.3cm) Valvular Assessment LVOT 0.7 - 1.1 m/sec Aortic Valve 1.0 - 1.7 m/sec Mitral Valve 0.6 - 1.3 m/sec Tricuspid Valve 0.3 - 0.7 m/sec Pulmonic Valve 0.6 - 0.9 m/sec Regurgitation Mild Mild Moderate No Findings Left Ventricle: Global left ventricular systolic function is severely reduced. The EF is 20 % visually. Diffuse global hypokinesis. All scored left ventricular wall segments are hypokinetic. No thrombus is identified in the left ventricle. Right Ventricle: Mildly reduced right ventricular systolic function. A pacemaker wire is seen in the right ventricle. Doppler studies suggest mildly elevated right sided pressures. Left Atrium: The left atrium appears enlarged. Right Atrium: The right atrium is mildly enlarged. Mitral Valve: The mitral valve is normal in mobility and thickness. Mild mitral regurgitation. Aortic Valve: Mildly sclerosed aortic valve cusps. Mild aortic valve regurgitation. The aortic valve is trileaflet. Tricuspid Valve: Normal tricuspid valve. Moderate tricuspid regurgitation. Tricuspid Valve Measurements RVSP: 42 mmHg. Pulmonic Valve: Normal pulmonary valve. No pulmonary regurgitation. Great Vessels: IVC: The IVC is normal in size. There is no inspiratory collapse of the IVC. Pericardium: No pericardial effusion. The Attending Physician has reviewed the examination with the fellow Procedure Staff Reading Group: [facility] Referring Physician: RUDY KING Property Consultant: June Brumfield RDCS, RVT, RN, BSN Ordering Physician: Wil Sotomayor MD Wall Motion Scores -1 - hyperkinesia, 0 - not evaluated, 1 - normal, 2 - hypokinesia, 3 - akinesia, 4 - dyskinesia Assessment: Cardiogenic shock, cardiac index 1.3 L/min/m2, likely secondary to acute heart failure exacerbation Acute right ventricular failure Melanie 0.72 < 1 suggestive of significant RV failure RHC suggestive of biventricular failure Acute on chronic heart failure with reduced ejection fraction s/p ICD placement, NYHA II/III 04/23/2025 echo with EF 20%, severely reduced RV systolic function, mild-moderate MR, mild AV regurg, mild TR, elevated RVSP 49 Non-oliguric acute kidney injury, worsening with decreased urinary output Likely underlying cardiorenal syndrome: type1 Moderate circumferential pericardial effusion s/p RHC and pericardiocentesis (300cc removal) with drain placement on 04/19/25 - unclear etiology, cannot rule out acute pericarditis Pericardial drain removed 04/20 after resolution of effusion on 04/20 echo Repeat echo limited 04/23/2025 with EF 20%, severely reduced RV systolic function, and no inspiratory collapse of IVC (new findings), and minimal pericardial effusion TTE 04/30: EF 20%, mild MR, AR, moderate TR, no pericardial effusion Frequent PVC's and runs of NSVT on telemetry, on amiodarone gtt Paroxysmal A-fib [id number] (heart failure, hypertension, age 65-74) s/p Watchman procedure on 02/06/2025 (due to prior bleeding with eliquis) Nonobstructive coronary artery disease Hyperlipidemia (unspecified) on lipitor 40 Plan: Off dobutamine since 04/30 Will slowly reintroduce GDMT as BP and kidney function tolerate: Continue aldactone 25, farxiga 10 today Continue holding entresto, toprol. Will up-titrate as tolerated by kidney function and blood pressure Off of CRRT Resume colchicine 0.6 mg Stopped amiodarone drip on 04/29, will monitor Aggressive electrolyte replacement to maintain potassium > 4 and magnesium > 2 Continue Cardiac medications as tolerated (currently limited by hypotension) Lipitor 40 mg, aspirin 81 mg & Plavix 75 mg Holding: Toprol-XL 12.5 mg daily, Farxiga 10 mg daily, Entresto 97/103 mg b.I.d. & Aldactone 25mg. Cardiology will continue to follow. Please call with any questions. Alba Mena MD Internal medicine resident, PGY-3 [facility] Cosigned by Mitesh Vernon MD at 05/02/2025 2:30 PM EDT Associated attestation - Mitesh Vernon MD - 05/02/2025 2:30 PM EDT By using the attestations below, the signing clinician agrees that I have read and verify that thedocumentation has been personally reviewed by me and ensure that the documentation accurately reflects the encounter. GC: I personally saw this patient on the day of the encounter with Dr. Vivar, Dr. Franco, Dr. Mena, and Niles Tolbert MS4, performed the gonzáles portion(s) of the service and participated in the management and confirm the resident's documentation. Please note there may be an additional personal documentation from me. * Barry Jimenes MD - 05/02/2025 12:23 PM EDT Images from the original note were not included. Nephrology Progress Note Patient : Kristy Doherty; 69 y.o. Location: 3217/3217-01 Attending: Dg Power MD Admit Date: 04/19/2025 Hospital Day: 13 Reason for Consult: Severe LINDA in setting of Cardiogenic Shock Subjective: History of present illness: Kristy Doherty is a 69 y.o. male with PMHx significant for CAD, Atrial fibrillation s/p Watchman procedure, who was transferred from [place] with initial chief complaint of chest and back pain. The patient was noted to have a percardial effusion and echocardiogram and was taken for emergent pericar diocentesis with RHC and LHC. He had recurrence of his effusion with repeat echo demonstrating reduced RV function, RHC with elevated wedge pressures. Patient is seen and examined in MICU. He is currently receiving lasix 40 mg in addition to 40 received earlier. Plan to give 80 mg BID additional. Urine output this far has been minimal. He has a lanier catheter in place. Denies acute complaints including chest pain and shortness of breath. Interval history: 05/02/25 Patient seen and examined sitting in his armchair this morning, afebrile and hemodynamically stable. Patient is now off CRRT. No acute events overnight. Patient denies chest pain or shortness of breath. Objective: Input/Output: Intake/Output Summary (Last 24 hours) at 05/02/2025 1224 Last data filed at 05/02/2025 0946 Gross per 24 hour Intake 430.27 ml Output 1404 ml Net -973.73 ml I/O last 3 completed shifts: In: 4303.7 (51.8 mL/kg) [I.V.:3953.7 (47.6 mL/kg); IV Piggyback:350] Out: 7966 (95.9 mL/kg) [Urine:925 (0.3 mL/kg/hr); Other:7041] Weight: 83.1 kg Vital signs: Temperature: Temp: 36 ??C (96.8 ??F) TMax: Temp (24hrs), Av.3 ??C (97.3 ??F), Min:35.8 ??C (96.4 ??F), Max:36.7 ??C (98.1 ??F) Respirations: Resp: 17 Pulse: Heart Rate: 83 BP: BP: 108/81 BP Range: Systolic (24hrs), Av , Min:104 , Max:135 Diastolic (24hrs), Av, Min:66, Max:91 Wt Readings from Last 3 Encounters: 05/02/25 83.1 kg (183 lb 3.2 oz) 04/03/25 84.8 kg (187 lb) 02/26/25 85.7 kg (189 lb) Physical Exam Constitutional: General: He is not in acute distress. Appearance: He is not ill-appearing. HENT: Head: Normocephalic and atraumatic. Eyes: General: No scleral icterus. Cardiovascular: Rate and Rhythm: Normal rate and regular rhythm. Heart sounds: Normal heart sounds. No murmur heard. No friction rub. No gallop. Pulmonary: Effort: Pulmonary effort is normal. No respiratory distress. Breath sounds: Normal breath sounds. No wheezing, rhonchi or rales. Abdominal: General: Abdomen is flat. Palpations: Abdomen is soft. Musculoskeletal: Right lower leg: No edema. Left lower leg: No edema. Skin: General: Skin is warm and dry. Neurological: General: No focal deficit present. Mental Status: He is alert and oriented to person, place, and time. Psychiatric: Mood and Affect: Mood normal. Current Medications: Scheduled Meds: allopurinol, 300 mg, oral, Daily aspirin, 81 mg, oral, Daily with breakfast atorvastatin, 40 mg, oral, Nightly clopidogrel, 75 mg, oral, Daily colchicine, 0.6 mg, oral, BID dapagliflozin propanediol, 10 mg, oral, Once Daily enoxaparin, 40 mg, subcutaneous, Daily [Held by provider] furosemide, 80 mg, intravenous, q12h [Held by provider] metoprolol succinate XL, 12.5 mg, oral, Daily mometasone-formoterol, 2 puff, inhalation, BID [Held by provider] sennosides-docusate sodium, 1 tablet, oral, BID spironolactone, 25 mg, oral, Daily Continuous Infusions: dialysate 4K with bicarb and calcium 5000 mL, 2,000 mL/hr, Last Rate: Stopped(05/01/25 1253) epoprostenol (Veletri) 500 mcg in sodium chloride 0.9 % 100 mL (5 mcg/mL) infusion, 4 ng/kg/min, Last Rate: Stopped (05/01/25 1253) [Held by provider] milrinone, 0.25 mcg/kg/min, Last Rate: Stopped (04/26/25 1112) sodium bicarbonate 150 mEq in sterile water 1,000 mL infusion, 200 mL/hr, Last Rate: Stopped (05/01/25 1253) PRN Meds: PRN medications: acetaminophen, albuterol, alteplase, glucose OR dextrose 50 % in water (D50W), guaiFENesin, heparin (porcine), ipratropium- albuteroL, melatonin, naloxone OR naloxone OR naloxone, ondansetron ODT OR ondansetron, simethicone, sodium chloride Outpatient Medications: Medication Documentation Review Audit Reviewed by Karrie Garza RN (Registered Nurse) on 04/19/25 at 1111 Medication Order Taking? Sig Documenting Provider Last Dose Status albuterol 90 mcg/actuation inhaler [id number] Inhale 1 puff 2 times daily. Historical ProviderMD Active allopurinol (Zyloprim) 300 mg tablet [id number] Yes Take 300 mg by mouth in the morning. Historical ProviderMD 04/18/2025 Morning Active amoxicillin (Amoxil) 500 mg tablet [id number] No Take 4 tablets (2,000 mg) by mouth 1 (one) time if needed (30-60 minute prior to dental procedures) for up to 20 doses. Patient not taking: Reported on 04/19/2025 Hay William MD Unknown Active aspirin 81 mg chewable tablet [id number] Yes Chew 1 tablet (81 mg) with breakfast. Hay William MD 04/18/2025 Morning Active atorvastatin (Lipitor) 40 mg tablet [id number] Yes Take 1 tablet (40 mg) by mouth at bedtime. Hay William MD 04/18/2025 Bedtime Active clopidogrel (Plavix) 75 mg tablet [id number] Yes Take 1 tablet (75 mg) by mouth in the morning. Hay William MD 04/18/2025 Morning Active dapagliflozin propanediol (Farxiga) 10 mg [id number] Yes Take 1 tablet (10 mg) by mouth once daily asdirected. Shania Chauhan CNP 04/18/2025 Morning Active Dupixent Syringe 300 mg/2 mL syringe injection [id number] No Inject 300 mg under the skin every 14 (fourteen) days. Historical Provider, 04/07/2025 Active fluticasone (Flonase) 50 mcg/actuation nasal spray [id number] Yes Administer 1 spray into each nostril two times daily. Shake gently. Before first use, prime pump. After use, clean tip and replace cap.Historical Provider, 04/18/2025 Bedtime Active fluticasone propion-salmeteroL (Advair Diskus) 500-50 mcg/dose diskus inhaler [id number] Yes Inhale 1puff two times daily. Historical Provider, 04/18/2025 Bedtime Active metoprolol succinate XL (Toprol-XL) 50 mg 24 hr tablet [id number] Yes Take 1 tablet (50 mg) by mouth once daily as directed. Do not crush or chew. Hay William MD 04/18/2025 Morning Active sacubitril-valsartan (Entresto) 97-103 mg tablet [id number] Yes Take 1 tablet by mouth two times daily. Hay William MD 04/18/2025 Bedtime Active spironolactone (Aldactone) 25 mg tablet [id number] Yes Take 1 tablet (25 mg) by mouth in the morning.Hay William MD 04/18/2025 Morning Active Labs: I have reviewed the patient's most recent labs as listed below: Chemistry: Lab Results Component Value Date NA 133 (L) 05/02/2025 K 3.1 (L) 05/02/2025 CL 93 (L) 05/02/2025 CO2 33 (H) 05/02/2025 ANIONGAP 10 05/02/2025 BUN 20 05/02/2025 CREATININE 1.69 (H) 05/02/2025 EGFR 43.4 (L) 05/02/2025 CALCIUM 7.3 (L) 05/02/2025 MG 1.8 (L) 05/02/2025 PHOS 2.5 05/02/2025 ALBUMIN 3.1 (L) 05/02/2025 PROT 5.4 (L) 05/02/2025 AST 54 (H) 05/02/2025 ALT 129 (H) 05/02/2025 BILITOT 0.7 05/02/2025 ALKPHOS 60 05/02/2025 Hematology & Iron studies: Lab Results Component Value Date WBC 5.94 05/02/2025 HGB 8.4 (L) 05/02/2025 HCT 24.6 (L) 05/02/2025 MCV 93.5 05/02/2025 PLT 153 05/02/2025 IRON 33 (L) 04/29/2025 TIBC 214 (L) 04/29/2025 UIBC 181.0 04/29/2025 IRONSAT 15 (L) 04/29/2025 FERRITIN 1,265.0 (H) 04/29/2025 Urine chemistry Lab Results Component Value Date PROTUR Negative 04/26/2025 CREATUR 83.0 04/26/2025 NAUR 92 04/26/2025 UREAUR 237 04/26/2025 Urinalysis & Microscopy: No results found for: COLORU , CLARITYU , SPECGRAVU , LOGAN , PROTUR , LEUKOCYTESU , NITRITEU , GLUCOSEU , KETONESU , BILIRUBINUR , UROBILINOGEN , BLOODU , RBCU , WBCU , SQUAMEPIU , MUCUSU , TRIPHOCRYU , CAOXALCRU , CAPHOSCRYU Urine Eosinophils: No components found for: UEOS Serology & Other labs: Lab Results Component Value Date ANATITER <1:40 04/19/2025 BNP: No results found for: BNP COLLIN: No results found for: COLLIN SPEP: Lab Results Component Value Date PROT 5.4 (L) 05/02/2025 UPEP: No components found for: LABPE C3: No results found for: C3 C4: No results found for: C4 MPO ANCA: No components found for: MPO PR3 ANCA: No components found for: PR3 Anti-GBM: No components found for: GBMABIGG Hep BsAg: No results found for: HEPBSAG Hep C AB: No results found for: HEPCAB Radiology: Transthoracic echo (TTE) limited 1 1 [facility] Heart Station [address] [place] [address] [phone] (fax) Echocardiogram-[facility] Name: KRISTY DOHERTY Study Date: 04/30/2025 07:02 AM B/P: 121 mmHg/100 mmHg HR: 87 bpm Date of : 1955 Location: [facility] Height: 68 in. Age: 69 year(s) Patient Room: 3217 Weight: 178 lb. Gender: Male Patient Status: InPt BSA: 1.94 m2 Indication: Limited; pericardial effusion, S/P 35 mm Watchman device FLX, Pericardiocentesis EF 20%, Pacemaker/AICD, Continuous hemodialysis Examination: Limited Echo/Limited Doppler, Color flow imaging Image Quality: Good Patient Consent: Procedure explained to patient Conclusions Left Ventricle: Global left ventricular systolic function is severely reduced. The EF is 20 % visually. Diffuse global hypokinesis. Right Ventricle: Mildly reduced right ventricular systolic function. Doppler studies suggest mildly elevated right sided pressures. Left Atrium: The left atrium appears enlarged. Mitral Valve: Mild mitral regurgitation. Aortic Valve: Mild aortic valve regurgitation. Tricuspid Valve: Moderate tricuspid regurgitation. Tricuspid Valve Measurements RVSP: 42 mmHg. Pericardium: No pericardial effusion. Measurements Left Ventricle Label Value Normal Value LVEF visual 20 % Tricuspid Valve Label Value Normal Value RA Pressure 8 mmHg RVSP 42 mmHg TR Vmax 2.93 m/s Great Vessels Label Value Normal Value IVC 2 cm (1.2cm - 2.3cm) Valvular Assessment LVOT 0.7 - 1.1 m/sec Aortic Valve 1.0 - 1.7 m/sec Mitral Valve 0.6 - 1.3 m/sec Tricuspid Valve 0.3 - 0.7 m/sec Pulmonic Valve 0.6 - 0.9 m/sec Regurgitation Mild Mild Moderate No Findings Left Ventricle: Global left ventricular systolic function is severely reduced. The EF is 20 % visually. Diffuse global hypokinesis. All scored left ventricular wall segments are hypokinetic. No thrombus is identified in the left ventricle. Right Ventricle: Mildly reduced right ventricular systolic function. A pacemaker wire is seen in the right ventricle. Doppler studies suggest mildly elevated right sided pressures. Left Atrium: The left atrium appears enlarged. Right Atrium: The right atrium is mildly enlarged. Mitral Valve: The mitral valve is normal in mobility and thickness. Mild mitral regurgitation. Aortic Valve: Mildly sclerosed aortic valve cusps. Mild aortic valve regurgitation. The aortic valve is trileaflet. Tricuspid Valve: Normal tricuspid valve. Moderate tricuspid regurgitation. Tricuspid Valve Measurements RVSP: 42 mmHg. Pulmonic Valve: Normal pulmonary valve. No pulmonary regurgitation. Great Vessels: IVC: The IVC is normal in size. There is no inspiratory collapse of the IVC. Pericardium: No pericardial effusion. The Attending Physician has reviewed the examination with the fellow Procedure Staff Reading Group: [facility] Referring Physician: RUDY KING Property Consultant: June Brumfield RDCS, RVT, RN, BSN Ordering Physician: Wil Sotomayor MD Wall Motion Scores -1 - hyperkinesia, 0 - not evaluated, 1 - normal, 2 - hypokinesia, 3 - akinesia, 4 - dyskinesia Assessment: Acute Kidney Injury, likely combination of ATN due to altered hemodynamics in setting of tamponade and contrast nephropathy - improving Electrolyte Abnormalities (Hyponatremia, Hypokalemia) Metabolic acidosis - resolved Hypervolemia - resolved HFrEF- RHC suggestive of biventricular failure. EF 20%, RV systolic function severely reduced per echo 04/23/2025 Atrial fibrillation s/p Watchman- on amiodarone Normocytic anemia Essential hypertension Plan: Patient responded well to Lasix and appears to be making a good amount of urine. Can give additional as-needed doses if UOP decreases. Noted bump in Cr/BUN however this is after discontinuation of CRRT. Unclear at this time if this represents new baseline - continue to trend daily renal chemistries and watch for renal recovery. No indication for DRESSMAKER GARMENT FITTER at this time. Electrolyte replacement per MICU protocol. Continue to avoid nephrotoxic medications. Patient is clear to transfer out of the ICU from Nephrology's standpoint. Nephrology service will continue to follow. Barry Jimenes MD PGY-3, Internal Medicine [facility] Cosigned by Karina Amaya MD at 05/02/2025 5:26 PM EDT Associated attestation - Karina Amaya MD - 05/02/2025 5:26 PM EDT By using the attestations below, the signing clinician agrees that I have read and verify that thedocumentation has been personally reviewed by me and ensure that the documentation accurately reflects the encounter. GC: I personally saw this patient on the day of the encounter, performed the gonzáles portion(s) of the service and participated in the management and confirm the resident's documentation. Please note there may be an additional personal documentation from me. * Karsten Gage MD - 05/02/2025 7:22 AM EDT Images from the original note were not included. Medical ICU Progress Note Patient - Kristy Doherty Age - 69 y.o. - 1955 Date of Admission - 04/19/2025 10:46 AM HPI/Hospital Course Subjective Kristy Doherty is an 69 y.o. male who came from [place] with chest pain with radiation to neck andback. Past medical history of heart failure with reduced ejection fraction, hypertension, coronary artery disease, cardiomyopathy nonischemic (AICD placed), hyperlipidemia, [facility]. Patient presents from [place] with chest pain radiating to the neck and back. He states that chest pain started last night was a constant sharp pain all over his chest. He states that the pain radiated to his neck and back rated pain a 5 out of 10. Patient stated when he was on his right side pain in his neck improved. At outside hospital patient was found to have small pericardial effusion on CT as well as potential atelectasis versus pneumonia. He also had a sodium of 123. His troponins were downtrending and from 11.5-10.5. Patient was also hypotensive at outside hospital which he states he has been hypotensive now for the past 2 weeks. At bedside patientstates that chest pain has improved and is now a 2 out of 10. He still states that chest pain radiates up to his neck. Along with chest pain he complains of fever, sweats, chest pain, shortness of breath, fatigue, weakness. Patient denies chills, palpitations, leg swelling, wheezing abdominal pain,nausea, vomiting, diarrhea, lightheadedness, dizziness, headache, visual changes. Patient was then taken to the catheterization lab for emergent pericardiocentesis due to echo showing signs of cardiac tamponade. A right heart cath, left heart cath and pericardiocentesis were performed. They able to successfully drain the pericardial fluid with significant proven in blood pressure following pericardiocentesis and drain placement. There was minimal drain output and repeat echo showed no pericardial effusions. The patient was being managed by the hospitalist service and plans for discharge were in place, however the patient had recurrence of his pericardial effusion along with hypotension. Repeat echoes showed worsening ejection fraction and severely reduced RV systolic function with no inspiratory collapse of the IVC. Patient was taken back to the catheterization lab for a right heart cath which demonstrated elevated wedge pressure and RV pressures. A Ass[place]oman-Shannan catheter was placed for further monitoring and the patient was transferred to the medical ICU. SUBJECTIVE Patient seen and examined at the bedside. He continues to progress well. Denies any chest pain or shortness of breath. Has been able to be taken off dialysis. OBJECTIVE Vitals height is 1.727 m (5' 8 ) and weight is 83.1 kg (183 lb 3.2 oz). His temporal temperature is 36 ??C(96.8 ??F). His blood pressure is 135/79 and his pulse is 83. His respiration is 20 and oxygen saturation is 91%. Temp: [35 ??C (95 ??F)-36.7 ??C (98.1 ??F)] 36 ??C (96.8 ??F) Heart Rate: [82-101] 83 Resp: [12-22] 20 BP: (99-135)/(55-91) 135/79 Physical Exam: Physical Exam Constitutional: General: He is not in acute distress. Appearance: Normal appearance. He is not ill-appearing. Eyes: Extraocular Movements: Extraocular movements intact. Conjunctiva/sclera: Conjunctivae normal. Pupils: Pupils are equal, round, and reactive to light. Cardiovascular: Rate and Rhythm: Normal rate. Rhythm irregular. Pulses: Normal pulses. Pulmonary: Effort: Pulmonary effort is normal. Breath sounds: Normal breath sounds. Abdominal: General: Abdomen is flat. Palpations: Abdomen is soft. Neurological: General: No focal deficit present. Mental Status: He is alert and oriented to person, place, and time. Weight: Admission weight: 82.6 kg (182 lb) Wt Readings from Last 1 Encounters: 05/02/25 83.1 kg (183 lb 3.2 oz) Input/Output: Intake/Output Summary (Last 24 hours) at 05/02/2025 0722 Last data filed at 05/02/2025 0600 Gross per 24 hour Intake 1300.67 ml Output 2899 ml Net -1598.33 ml Ventilator: Lab Results ABG: Results from last 7 days Lab Units 04/28/25 0854 PH ART 7.36 PCO2 ART mmHg 30* PO2 ART mmHg 86 HCO3 ART mmol/L 16.9* CBC: Results from last 7 days Lab Units 05/02/2531205/01/25 0305 04/30/25 0410 WBC AUTO 10*3/uL 5.94 7.39 8.77 HEMOGLOBIN g/dL 8.4* 8.6* 8.2* HEMATOCRIT % 24.6* 25.1* 23.9* PLATELETS AUTO 10*3/uL 153 159 143* Coagulation: Metabolic Panel: Results from last 7 days Lab Units 05/02/2531205/01/25 0830 05/01/25 0305 POTASSIUM mmol/L 3.1* 3.9 3.7 CHLORIDE mmol/L 93* 96* 94* CO2 mmol/L 33* 35* 35* BUN mg/dL 20 11 12 CREATININE mg/dL 1.69* 1.01 1.04 GLUCOSE mg/dL 105* 99 115* CALCIUM mg/dL 7.3* 7.7* 7.9* MAGNESIUM mg/dL 1.8* 1.9 2.0 Liver Panel: Results from last 7 days Lab Units 05/02/2531205/01/25 0305 04/30/25 0410 04/29/25 0238 ALBUMIN g/dL 3.1* 3.4* 3.2* 3.1* BILIRUBIN TOTAL mg/dL 0.7 0.9 0.8 0.7 ALT U/L 129* 182* 211* 267* AST U/L 54* 86* 119* 252* ALK PHOS U/L 60 65 54 56 AMMONIA umol/L -- -- -- 56 Glucose: Hgb A1c: Cardiac: No lab exists for component: TROPI , TROPONIN Anemia Labs: Results from last 7 days Lab Units 04/29/25 0814 FERRITIN ng/mL 1,265.0* IRON ug/dL 33* TIBC ug/dL 214* IRON SATURATION % 15* Lipid Panel: No lab exists for component: CHOLHDL Urine Labs: Lab Results Component Value Date UROBILINOGEN Normal 04/26/2025 Additional Labs: No lab exists for component: LACTICACID , PROCALCITON Radiology Transthoracic echo (TTE) limited 1 1 [facility] Heart Station [address] [phone] (fax) Echocardiogram-[facility] Name: KRISTY DOHERTY Study Date: 04/30/2025 07:02 AM B/P: 121 mmHg/100 mmHg HR: 87 bpm Date of : 1955 Location: [facility] Height: 68 in. Age: 69 year(s) Patient Room: 3217 Weight: 178 lb. Gender: Male Patient Status: InPt BSA: 1.94 m2 Indication: Limited; pericardial effusion, S/P 35 mm Watchman device FLX, Pericardiocentesis EF 20%, Pacemaker/AICD, Continuous hemodialysis Examination: Limited Echo/Limited Doppler, Color flow imaging Image Quality: Good Patient Consent: Procedure explained to patient Conclusions Left Ventricle: Global left ventricular systolic function is severely reduced. The EF is 20 % visually. Diffuse global hypokinesis. Right Ventricle: Mildly reduced right ventricular systolic function. Doppler studies suggest mildly elevated right sided pressures. Left Atrium: The left atrium appears enlarged. Mitral Valve: Mild mitral regurgitation. Aortic Valve: Mild aortic valve regurgitation. Tricuspid Valve: Moderate tricuspid regurgitation. Tricuspid Valve Measurements RVSP: 42 mmHg. Pericardium: No pericardial effusion. Measurements Left Ventricle Label Value Normal Value LVEF visual 20 % Tricuspid Valve Label Value Normal Value RA Pressure 8 mmHg RVSP 42 mmHg TR Vmax 2.93 m/s Great Vessels Label Value Normal Value IVC 2 cm (1.2cm - 2.3cm) Valvular Assessment LVOT 0.7 - 1.1 m/sec Aortic Valve 1.0 - 1.7 m/sec Mitral Valve 0.6 - 1.3 m/sec Tricuspid Valve 0.3 - 0.7 m/sec Pulmonic Valve 0.6 - 0.9 m/sec Regurgitation Mild Mild Moderate No Findings Left Ventricle: Global left ventricular systolic function is severely reduced. The EF is 20 % visually. Diffuse global hypokinesis. All scored left ventricular wall segments are hypokinetic. No thrombus is identified in the left ventricle. Right Ventricle: Mildly reduced right ventricular systolic function. A pacemaker wire is seen in the right ventricle. Doppler studies suggest mildly elevated right sided pressures. Left Atrium: The left atrium appears enlarged. Right Atrium: The right atrium is mildly enlarged. Mitral Valve: The mitral valve is normal in mobility and thickness. Mild mitral regurgitation. Aortic Valve: Mildly sclerosed aortic valve cusps. Mild aortic valve regurgitation. The aortic valve is trileaflet. Tricuspid Valve: Normal tricuspid valve. Moderate tricuspid regurgitation. Tricuspid Valve Measurements RVSP: 42 mmHg. Pulmonic Valve: Normal pulmonary valve. No pulmonary regurgitation. Great Vessels: IVC: The IVC is normal in size. There is no inspiratory collapse of the IVC. Pericardium: No pericardial effusion. The Attending Physician has reviewed the examination with the fellow Procedure Staff Reading Group: [facility] Referring Physician: RUDY KING Property Consultant: June Brumfield RDCS, RVT, RN, BSN Ordering Physician: Wil Sotomayor MD Wall Motion Scores -1 - hyperkinesia, 0 - not evaluated, 1 - normal, 2 - hypokinesia, 3 - akinesia, 4 - dyskinesia Cultures Lab Results Component Value Date BLOOD CULTURE No growth at 5 days 04/20/2025 BLOOD CULTURE No growth at 5 days 04/20/2025 Medications Scheduled: allopurinol, 300 mg, oral, Daily aspirin, 81 mg, oral, Daily with breakfast atorvastatin, 40 mg, oral, Nightly clopidogrel, 75 mg, oral, Daily colchicine, 0.6 mg, oral, BID dapagliflozin propanediol, 10 mg, oral, Once Daily enoxaparin, 40 mg, subcutaneous, Daily [Held by provider] furosemide, 80 mg, intravenous, q12h [Held by provider] metoprolol succinate XL, 12.5 mg, oral, Daily mometasone-formoterol, 2 puff, inhalation, BID potassium chloride, 20 mEq, intravenous, q1h [Held by provider] sennosides-docusate sodium, 1 tablet, oral, BID spironolactone, 25 mg, oral, Daily Infusions: dialysate 4K with bicarb and calcium 5000 mL, 2,000 mL/hr, Last Rate: Stopped (05/01/25 1253) epoprostenol (Veletri) 500 mcg in sodium chloride 0.9 % 100 mL (5 mcg/mL) infusion, 4 ng/kg/min, Last Rate: Stopped (05/01/25 1253) [Held by provider] milrinone, 0.25 mcg/kg/min, Last Rate: Stopped (04/26/25 1112) sodium bicarbonate 150 mEq in sterile water 1,000 mL infusion, 200 mL/hr, Last Rate: Stopped (05/01/25 1253) As Needed: PRN medications: acetaminophen, albuterol, alteplase, glucose OR dextrose 50 % in water (D50W),guaiFENesin, heparin (porcine), ipratropium-albuteroL, melatonin, naloxone OR naloxone OR naloxone, ondansetron ODT OR ondansetron, simethicone, sodium chloride ASSESSMENT AND PLAN Assessment Cardiogenic shock secondary to acute on chronic heart failure exacerbation EF 20% s/p ICD Pericardial effsuion s/p drainage Right pleural effusion Acute pericarditis Paroxysmal atrial fibrillation Frequent PVCs HTN HLD Plan Cardiogenic shock secondary to acute on chronic heart failure exacerbation EF 20% s/p ICD, improved Pericardial effusion s/p drainage Patient had 300 cc removal with drain placement on 04/19, repeat echo on 04/23 showed severely reduced EF 20% and RV systolic function along with no inspiratory collapse of IVC Pericardial drain was removed on 04/20 due to resolution of effusion Assawoman Shannan placed on 04/24, has showed improvement in CO and CI--removed as hematoma was forming and his CI and CO improved Have weaned off dobutamine Added on hydrocortisone Good urine output on lasix, can stop CRRT Restarting GDMT as able Repeat ECHO on 04/30 shows EF 20% with no effusion Palliative care on board: continue all aggressive measures Appreciate cardiology input Acute renal injury, improving on CRRT Metabolic acidosis, improved Patient has had increase in creatinine to 3.36 from baseline normal --> has now improved to 1.04 Likely is due to combination of shock, cardiorenal syndrome, along with receiving IV contrast a couple days ago. Anticipate improvement once blood pressure stabilizes Bedside bladder ultrasound does not show any acute retention/obstruction Urine studies ordered: FeNa 2.6% showing ATN Patient showing signs of early/minimal pulmonary edema from volume overload, has had improvement Patient has completed CRRT sessions Nephrology consulted Patient responded well to IV Lasix and appears to be making good amount of urine, can give additional as needed doses if urine output decreases There was a bump in creatinine this morning however this is after discontinuation of CRRT, continueto trend for now Layering right pleural effusion Patient had increased cough and crackles on exam today (04/29) prompting a CXR CXR shows vascular congestion with a new right basilar airspace opacification as well as a layeringright effusion No fevers/chills or WBC count making infectious process less likely Expect improvement with more CRRT sessions, if it worsens we can consider diagnostic thoracentesis if needed No further complaints of chest pain, SOB, or cough after CRRT Acute normocytic anemia of chronic disease Hemoglobin is 8.3 from baseline normal a week ago Likely secondary to acute renal disease Ordered iron studies and started IV Aranesp Iron is decreased at 33 and elevated ferritin at 1265. Low TIBC and saturation Consistent with anemia of chronic disease Hyponatremia, improving Likely due to volume overload from cardiogenic shock along with aggressive diuresis Sodium is 133, continuing to trend Urine studies ordered Possible acute pericarditis Could explain the pericardial effusion Can restart colchicine as kidney function has improved Continue allopurinol Paroxysmal atrial fibrillation. Controlled CHADSVASC 3 (HTN, CHF, age) Had Watchamn on 01/2025 due to prior Eliquis bleeding Currently on aspirin and Plavix, continuing Rate controlled on Toprol 12.5 BID, continue as BP allows Stopped amiodarone drip Frequent PVCs on tele, improving Likely is due current cardiogenic shock Toprol was on for suppression but holding in cardiogenic shock Continue tele and monitoring, appears less frequent Last ABG: None Fluids: PRN Pressor support: none Lines (location & placement): L y[facility] bridges DVT prophylaxis: Heparin subq Diet: Regular Code Status: FULL This progress note was completed using a voice commodities requirements analyst system. Every effort was made to ensure accuracy. However, inadvertent computerized commodities requirements analyst errors may be present. Karsten Gage MD PGY2 IM Resident 05/02/25 7:22 AM Cosigned by Dg Pwoer MD at 05/02/2025 2:48 PM EDT Associated attestation - Dg Power MD - 05/02/2025 2:48 PM EDT The patient was seen and examined with the resident Dr. Gage and the MICU team. The resident's note was reviewed and findings were confirmed. Assessment and plan discussed during rounds with the resident and delineated below with the following additions/modifications. BUN and creatinine values are worsening post discontinuation of CVVHD. The nephrology service will monitor the patient's kidney function closely and hold further session of dialysis for now . Correction of acid-base and multiple electrolytes abnormalities (hyponatremia, hypokalemia, hypomagnesemia, hypocalcemia) in progress. Continue to optimize her cardiac function as per the cardiology service recommendations. The patient's case was discussed with the cardiology and nephrology services and the medical management plan was coordinated * Shay Isaac, DRESSMAKER GARMENT FITTER - 05/01/2025 1:52 PM EDT Respiratory Progress Note Patient Name: Kristy Doherty : 1955 Today's Date: 05/01/2025 No Chest X-ray results found for the past 24 hours The findings from the last RT Protocol Assessment were as follows: Bronchodilator Assessment Grid RR: Less than 20 (Level 2) Dyspnea: No SOB Breath Sounds: Clear Resp History: Diagnosis pulmonary disease Oxygen to keep SpO2 >/= 92%: Room air or baseline O2 Peak Flow: N/A Level: Level 1 Aerosolized bronchodilator medication orders and frequency have been revised according to the Respiratory Care Clinical Practice Guidelines. Patient to remain on home therapy: As at home reconcile order with home meds if pulmonary status isstable. Level 1: Every 4 hours PRN for wheezing via nebulizer. Level 2: TID daily and Q4 PRN for wheezing. Level 3: QID and Q4 PRN as needed for wheezing. Level 4: Every 4 hours and as needed for wheezing. Level 5: Stat nebulizer time one and contact prescriber for frequency change. Note - The frequency level of therapy will not be lower than the frequency of home therapy as listed on the medication reconciliation record unless specifically ordered by the prescriber. Identify care plan and goals of therapy and perform ongoing clinical assessment to determine appropriateness, benefit, and improvement during the course of therapy. Patient will be re-evaluated every24 hours. Shay Isaac, DRESSMAKER GARMENT FITTER 05/01/2025 * Daron Trevino PT - 05/01/2025 10:25 AM EDT Physical Therapy Name: Kristy Doherty Date of : 1955 Today's Date: 05/01/25 Pt is unable to be seen for therapy at this time secondary to: acute renal injury on CRRT. Will check back and complete therapy session as appropriate. Check No Charge Time attempted: 944 Daron Trevino PT, DPT * Diana Beltran, OT - 05/01/2025 9:45 AM EDT Occupational Therapy OT Check no charge Name: Kristy Doherty Date of : 1955 Today's Date: 05/01/25 Pt is unable to be seen for therapy at this time secondary to LINDA, currently on CRRT. Will check back and complete when appropriate. Will check back and complete therapy session as appropriate. Check No Charge Time attempted: 944 Edith OTR/L, MOT * Igor Greene MD - 05/01/2025 9:32 AM EDT Images from the original note were not included. Nephrology Progress Note Patient : Kristy Doherty; 69 y.o. Location: 3217/3217-01 Attending: Dg Power MD Admit Date: 04/19/2025 Hospital Day: 12 Reason for Consult: Severe LINDA in setting of Cardiogenic Shock Subjective: History of present illness: Kristy Doherty is a 69 y.o. male with PMHx significant for CAD, Atrial fibrillation s/p Watchman procedure, who was transferred from [place] with initial chief complaint of chest and back pain. The patient was noted to have a percardial effusion and echocardiogram and was taken for emergent pericar diocentesis with RHC and LHC. He had recurrence of his effusion with repeat echo demonstrating reduced RV function, RHC with elevated wedge pressures. Patient is seen and examined in MICU. He is currently receiving lasix 40 mg in addition to 40 received earlier. Plan to give 80 mg BID additional. Urine output this far has been minimal. He has a lanier catheter in place. Denies acute complaints incl uding chest pain and shortness of breath. Interval history: 05/01/25 No acute events overnight Afebrile vital signs stable. Patient remains on CRRT, tolerating ultrafiltration of 100 cc/h. Off of pressors since yesterday. Seen in ICU no acute complaints denies any chest pain denies any shortness of breath. Urine output 525 cc in the last 24 hours. Objective: Input/Output: Intake/Output Summary (Last 24 hours) at 05/01/2025 0932 Last data filed at 05/01/2025 0800 Gross per 24 hour Intake 4852.78 ml Output 8297 ml Net -3444.22 ml I/O last 3 completed shifts: In: 7847.1 (96.5 mL/kg) [I.V.:7547.1 (92.8 mL/kg); IV Piggyback:300] Out: 60947 (166.5 mL/kg) [Urine:525 (0.2 mL/kg/hr); Other:82802] Weight: 81.3 kg Vital signs: Temperature: Temp: 35.8 ??C (96.4 ??F) TMax: Temp (24hrs), Av.8 ??C (96.5 ??F), Min:33.5 ??C (92.3 ??F), Max:36.5 ??C (97.7 ??F) Respirations: Resp: 18 Pulse: Heart Rate: 82 BP: BP: (!) 103/92 BP Range: Systolic (24hrs), Av , Min:103 , Max:129 Diastolic (24hrs), Av, Min:63, Max:94 Wt Readings from Last 3 Encounters: 05/01/25 81.3 kg (179 lb 3.7 oz) 04/03/25 84.8 kg (187 lb) 02/26/25 85.7 kg (189 lb) Physical Exam Constitutional: General: He is awake. He is not in acute distress. Cardiovascular: Rate and Rhythm: Normal rate.Regular Rhythm Pulmonary: Effort: Pulmonary effort is normal. Breath sounds: Normal breath sounds. Musculoskeletal: Right lower leg:No edema Left lower leg: No edema Neurological: General: No focal deficit present. Mental Status: He is alert. Psychiatric: Attention and Perception: Attention normal. Mood and Affect: Mood normal. Speech: Speech normal. Behavior: Behavior is cooperative. Current Medications: Scheduled Meds: allopurinol, 300 mg, oral, Daily aspirin, 81 mg, oral, Daily with breakfast atorvastatin, 40 mg, oral, Nightly clopidogrel, 75 mg, oral, Daily colchicine, 0.6 mg, oral, BID dapagliflozin propanediol, 10 mg, oral, Once Daily enoxaparin, 40 mg, subcutaneous, Daily [Held by provider] furosemide, 80 mg, intravenous, q12h hydrocortisone sodium succinate, 50 mg, intravenous, q12h ABILIO ipratropium-albuteroL, 3 mL, nebulization, q6h while awake [Held by provider] metoprolol succinate XL, 12.5 mg, oral, Daily mometasone-formoterol, 2 puff, inhalation, BID [Held by provider] sennosides-docusate sodium, 1 tablet, oral, BID spironolactone, 25 mg, oral, Daily Continuous Infusions: dialysate 4K with bicarb and calcium 5000 mL, 2,000 mL/hr, Last Rate: 2,000 mL/hr (05/01/25 0825) epoprostenol (Veletri) 500 mcg in sodium chloride 0.9 % 100 mL (5 mcg/mL) infusion, 4 ng/kg/min, Last Rate: 4 ng/kg/min (05/01/25 0700) [Held by provider] milrinone, 0.25 mcg/kg/min, Last Rate: Stopped (04/26/25 1112) sodium bicarbonate 150 mEq in sterile water 1,000 mL infusion, 200 mL/hr, Last Rate: 200 mL/hr (05/01/25 0825) PRN Meds: PRN medications: acetaminophen, albuterol, alteplase, glucose OR dextrose 50 % in water (D50W), guaiFENesin, heparin (porcine), ipratropium- albuteroL, melatonin, naloxone OR naloxone OR naloxone, ondansetron ODT OR ondansetron, simethicone, sodium chloride Outpatient Medications: Medication Documentation Review Audit Reviewed by Karrie Garza RN (Registered Nurse) on 04/19/25 at 1111 Medication Order Taking? Sig Documenting Provider Last Dose Status albuterol 90 mcg/actuation inhaler [id number] Inhale 1 puff 2 times daily. Historical ProviderMD Active allopurinol (Zyloprim) 300 mg tablet [id number] Yes Take 300 mg by mouth in the morning. Historical Provider, 04/18/2025 Morning Active amoxicillin (Amoxil) 500 mg tablet [id number] No Take 4 tablets (2,000 mg) by mouth 1 (one) time if needed (30-60 minute prior to dental procedures) for up to 20 doses. Patient not taking: Reported on 04/19/2025 Hay William MD Unknown Active aspirin 81 mg chewable tablet [id number] Yes Chew 1 tablet (81 mg) with breakfast. Hay William MD 04/18/2025 Morning Active atorvastatin (Lipitor) 40 mg tablet [id number] Yes Take 1 tablet (40 mg) by mouth at bedtime. Hay William MD 04/18/2025 Bedtime Active clopidogrel (Plavix) 75 mg tablet [id number] Yes Take 1 tablet (75 mg) by mouth in the morning. Hay William MD 04/18/2025 Morning Active dapagliflozin propanediol (Farxiga) 10 mg [id number] Yes Take 1 tablet (10 mg) by mouth once daily asdirected. Shania Chauhan CNP 04/18/2025 Morning Active Dupixent Syringe 300 mg/2 mL syringe injection [id number] No Inject 300 mg under the skin every 14 (fourteen) days. Historical Provider, 04/07/2025 Active fluticasone (Flonase) 50 mcg/actuation nasal spray [id number] Yes Administer 1 spray into each nostril two times daily. Shake gently. Before first use, prime pump. After use, clean tip and replace cap.Historical Provider, 04/18/2025 Bedtime Active fluticasone propion-salmeteroL (Advair Diskus) 500-50 mcg/dose diskus inhaler [id number] Yes Inhale 1puff two times daily. Historical Provider, 04/18/2025 Bedtime Active metoprolol succinate XL (Toprol-XL) 50 mg 24 hr tablet [id number] Yes Take 1 tablet (50 mg) by mouth once daily as directed. Do not crush or chew. Hay William MD 04/18/2025 Morning Active sacubitril-valsartan (Entresto) 97-103 mg tablet [id number] Yes Take 1 tablet by mouth two times daily. Hay William MD 04/18/2025 Bedtime Active spironolactone (Aldactone) 25 mg tablet [id number] Yes Take 1 tablet (25 mg) by mouth in the morning.Hay William MD 04/18/2025 Morning Active Labs: I have reviewed the patient's most recent labs as listed below: Chemistry: Lab Results Component Value Date NA 136 05/01/2025 K 3.9 05/01/2025 CL 96 (L) 05/01/2025 CO2 35 (H) 05/01/2025 ANIONGAP 9 05/01/2025 BUN 11 05/01/2025 CREATININE 1.01 05/01/2025 EGFR 80.5 05/01/2025 CALCIUM 7.7 (L) 05/01/2025 MG 1.9 05/01/2025 PHOS 2.4 (L) 05/01/2025 ALBUMIN 3.4 (L) 05/01/2025 PROT 5.9 (L) 05/01/2025 AST 86 (H) 05/01/2025 ALT 182 (H) 05/01/2025 BILITOT 0.9 05/01/2025 ALKPHOS 65 05/01/2025 Hematology & Iron studies: Lab Results Component Value Date WBC 7.39 05/01/2025 HGB 8.6 (L) 05/01/2025 HCT 25.1 (L) 05/01/2025 MCV 94.0 05/01/2025 PLT 159 05/01/2025 IRON 33 (L) 04/29/2025 TIBC 214 (L) 04/29/2025 UIBC 181.0 04/29/2025 IRONSAT 15 (L) 04/29/2025 FERRITIN 1,265.0 (H) 04/29/2025 Urine chemistry Lab Results Component Value Date PROTUR Negative 04/26/2025 CREATUR 83.0 04/26/2025 NAUR 92 04/26/2025 UREAUR 237 04/26/2025 Urinalysis & Microscopy: No results found for: COLORU , CLARITYU , SPECGRAVU , LOGAN , PROTUR , LEUKOCYTESU , NITRITEU , GLUCOSEU , KETONESU , BILIRUBINUR , UROBILINOGEN , BLOODU , RBCU , WBCU , SQUAMEPIU , MUCUSU , TRIPHOCRYU , CAOXALCRU , CAPHOSCRYU Urine Eosinophils: No components found for: UEOS Serology & Other labs: Lab Results Component Value Date ANATITER <1:40 04/19/2025 BNP: No results found for: BNP COLLIN: No results found for: COLLIN SPEP: Lab Results Component Value Date PROT 5.9 (L) 05/01/2025 UPEP: No components found for: LABPE C3: No results found for: C3 C4: No results found for: C4 MPO ANCA: No components found for: MPO PR3 ANCA: No components found for: PR3 Anti-GBM: No components found for: GBMABIGG Hep BsAg: No results found for: HEPBSAG Hep C AB: No results found for: HEPCAB Radiology: Transthoracic echo (TTE) limited 1 1 [facility] Heart Station [address] [place] [address] [phone] (fax) Echocardiogram-[facility] Name: KRISTY DOHERTY Study Date: 04/30/2025 07:02 AM B/P: 121 mmHg/100 mmHg HR: 87 bpm Date of : 1955 Location: [facility] Height: 68 in. Age: 69 year(s) Patient Room: 3217 Weight: 178 lb. Gender: Male Patient Status: InPt BSA: 1.94 m2 Indication: Limited; pericardial effusion, S/P 35 mm Watchman device FLX, Pericardiocentesis EF 20%, Pacemaker/AICD, Continuous hemodialysis Examination: Limited Echo/Limited Doppler, Color flow imaging Image Quality: Good Patient Consent: Procedure explained to patient Conclusions Left Ventricle: Global left ventricular systolic function is severely reduced. The EF is 20 % visually. Diffuse global hypokinesis. Right Ventricle: Mildly reduced right ventricular systolic function. Doppler studies suggest mildly elevated right sided pressures. Left Atrium: The left atrium appears enlarged. Mitral Valve: Mild mitral regurgitation. Aortic Valve: Mild aortic valve regurgitation. Tricuspid Valve: Moderate tricuspid regurgitation. Tricuspid Valve Measurements RVSP: 42 mmHg. Pericardium: No pericardial effusion. Measurements Left Ventricle Label Value Normal Value LVEF visual 20 % Tricuspid Valve Label Value Normal Value RA Pressure 8 mmHg RVSP 42 mmHg TR Vmax 2.93 m/s Great Vessels Label Value Normal Value IVC 2 cm (1.2cm - 2.3cm) Valvular Assessment LVOT 0.7 - 1.1 m/sec Aortic Valve 1.0 - 1.7 m/sec Mitral Valve 0.6 - 1.3 m/sec Tricuspid Valve 0.3 - 0.7 m/sec Pulmonic Valve 0.6 - 0.9 m/sec Regurgitation Mild Mild Moderate No Findings Left Ventricle: Global left ventricular systolic function is severely reduced. The EF is 20 % visually. Diffuse global hypokinesis. All scored left ventricular wall segments are hypokinetic. No thrombus is identified in the left ventricle. Right Ventricle: Mildly reduced right ventricular systolic function. A pacemaker wire is seen in the right ventricle. Doppler studies suggest mildly elevated right sided pressures. Left Atrium: The left atrium appears enlarged. Right Atrium: The right atrium is mildly enlarged. Mitral Valve: The mitral valve is normal in mobility and thickness. Mild mitral regurgitation. Aortic Valve: Mildly sclerosed aortic valve cusps. Mild aortic valve regurgitation. The aortic valve is trileaflet. Tricuspid Valve: Normal tricuspid valve. Moderate tricuspid regurgitation. Tricuspid Valve Measurements RVSP: 42 mmHg. Pulmonic Valve: Normal pulmonary valve. No pulmonary regurgitation. Great Vessels: IVC: The IVC is normal in size. There is no inspiratory collapse of the IVC. Pericardium: No pericardial effusion. The Attending Physician has reviewed the examination with the fellow Procedure Staff Reading Group: [facility] Referring Physician: RUDY KING Property Consultant: June Brumfield RDCS, RVT, RN, BSN Ordering Physician: Wil Sotomayor MD Wall Motion Scores -1 - hyperkinesia, 0 - not evaluated, 1 - normal, 2 - hypokinesia, 3 - akinesia, 4 - dyskinesia Assessment: Acute Kidney Injury, likely combination of ATN due to altered hemodynamics in setting of tamponade and contrast nephropathy Electrolyte Abnormalities (Hyponatremia, Hypokalemia) Metabolic acidosis Hypervolemia HFrEF- RHC suggestive of biventricular failure. EF 20%, RV systolic function severely reduced per echo 04/23/2025 Previously on IV milrinone, switched to dobutamine by Cardiology Atrial fibrillation s/p Watchman- on amiodarone Normocytic anemia Essential hypertension Plan: Patient continues to requires CRRT because of LINDA in setting of Cardiogenic Shock s/p Emergent Pericardiocentesis (eg, Remains anuric and in shock requiring pressors, severely acidotic in shock) Plan to stop CRRT today and give 80 mg IV Lasix to see if patient has good UOP. May stepdown to floor per primary if no longer requiring CRRT. On CRRT: Continuous venovenous hemodialysis [CVVHD] modality Vascular access: Femoral lline Dialysate: 4K bath and rate of 2 L/h (around 25 ml/kg/h) Blood flow: 200 mL/hr Ultrafiltration: To keep fluid balance even, then attempt a negative fluid balance if tolerated Prefilter IV fluids: Sodium Bicarb 150 mEq in Sterile Water at 200 mL/hr Post filter IV fluids: None at this time Adjust doses of medications to CRRT NOT for intermittent hemodialysis or CKD stage 5 -Will continue to monitor to see if patient continues to tolerate CRRT while off pressors. - s/p IV Aranesp 60 mcg for persistent anemia Monitor electrolytes: If serum potassium <4.0, IV KCl can be administered separately (post filter), please coordinate with nephrology If serum potassium >5.0, reduce dialysate potassium concentration by switching to lower K bath: eg, 2K from 3k. Please contact nephrology for proper adjustment Monitor phosphorus: May drop significantly and contribute to worsening respiratory muscle function.Replace aggressively Avoid nephrotoxic agents Thank you for the consultation. Please do not hesitate to contact us for any questions/concerns. Wewill continue to follow along with you. Igor Greene MD PGY 2 family independence case manager [facility] nephrology Cosigned by Karina Amaya MD at 05/01/2025 6:08 PM EDT Associated attestation - Karina Amaya MD - 05/01/2025 6:08 PM EDT By using the attestations below, the signing clinician agrees that I have read and verify that thedocumentation has been personally reviewed by me and ensure that the documentation accurately reflects the encounter. GC: I personally saw this patient on the day of the encounter, performed the gonzáles portion(s) of the service and participated in the management and confirm the resident's documentation. Please note there may be an additional personal documentation from me. Additional Comments: Off pressors but BP on low side and UOP decreased from yesterday. Will stop CRRT in 2 hours and give a dose of lasix 80 mg IV x 1 and monitor UOP and renal recovery. * Felicita Mooney MD - 05/01/2025 7:39 AM EDT Images from the original note were not included. Cardiology Progress Note Cardiogenic shock Subjective Kristy Doherty is a 69 y.o. male with significant medical history of hypertension, paroxysmal atrial fibrillation s/p Watchman 02/06/2025, chronic HFrEf (25-30%) s/p ICD 08/2022, and CAD who presented to the hospital for chest pain. Patient reports having substernal chest pain, radiating to his back and neck since the prior evening. Patient reports that his blood pressure has been running in the low 90s over 70s over the past couple of weeks. Denies any recent fever or chills/cough. Patient reports being compliant with all his medications. Subjective: I saw and evaluated the patient at bedside this morning. No acute overnight events. He is currentlyhemodynamically stable in no acute distress. Blood pressure around 120/80, pulse approximately 90. No complaints this morning. Objective: Patient Vitals for the past 24 hrs: BP Temp Temp src Pulse Resp SpO2 Weight 05/01/25 0700 (!) 103/92 35.8 ??C (96.4 ??F) -- 82 18 100 % -- 05/01/25 0600 113/84 36.1 ??C (97 ??F) -- 84 18 100 % -- 05/01/25 0500 105/71 36 ??C (96.8 ??F) -- 83 17 95 % 81.3 kg (179 lb 3.7 oz) 05/01/25 0400 103/77 36.3 ??C (97.3 ??F) -- 87 19 95 % -- 05/01/25 0300 112/74 36.1 ??C (97 ??F) -- 86 23 97 % -- 05/01/25 0200 115/84 36.1 ??C (97 ??F) -- 86 16 97 % -- 05/01/25 0100 (!) 117/94 35.8 ??C (96.4 ??F) -- 87 26 96 % -- 05/01/25 0000 118/80 35.8 ??C (96.4 ??F) Axillary 86 19 93 % -- 04/30/25 2300 110/78 35.8 ??C (96.4 ??F) -- 85 18 95 % -- 04/30/25 2200 119/64 35.9 ??C (96.6 ??F) -- 90 15 94 % -- 04/30/25 2100 106/63 36.2 ??C (97.2 ??F) -- 89 12 95 % -- 04/30/252009 -- -- -- 87 16 97 % -- 04/30/25 2000 119/70 36.1 ??C (97 ??F) Axillary 89 22 98 % -- 04/30/25 1900 118/76 35 ??C (95 ??F) -- 85 17 95 % -- 04/30/25 1801 111/74 -- -- 84 18 -- -- 04/30/25 1800 111/74 34.6 ??C (94.3 ??F) -- 83 17 97 % -- 04/30/25 1730 109/75 -- -- 87 (!) 30 -- -- 04/30/25 1700 129/90 -- -- 86 17 -- -- 04/30/25 1630 109/76 36.5 ??C (97.7 ??F) -- 84 19 96 % -- 04/30/25 1600 116/69 36.5 ??C (97.7 ??F) Axillary 85 22 98 % -- 04/30/25 1500 111/77 -- -- 88 20 -- -- 04/30/25 1400 115/77 36.1 ??C (97 ??F) -- 81 20 98 % -- 04/30/25 1300 109/70 36 ??C (96.8 ??F) -- 86 22 97 % -- 04/30/25 1230 115/75 36.2 ??C (97.2 ??F) -- 83 18 98 % -- 04/30/25 1200 122/73 36.2 ??C (97.2 ??F) Axillary 87 18 95 % -- 04/30/25 1000 112/70 33.5 ??C (92.3 ??F) -- 96 17 91 % -- 04/30/25 0900 122/74 36.2 ??C (97.2 ??F) -- 92 19 96 % -- 04/30/25 0845 123/80 36.1 ??C (97 ??F) -- 92 22 97 % -- 04/30/25 0830 116/71 36.3 ??C (97.3 ??F) -- 90 19 94 % -- 04/30/25 0815 90/76 36.3 ??C (97.3 ??F) -- 83 18 100 % -- 04/30/25 0800 (!) 115/92 36.3 ??C (97.3 ??F) Axillary 90 19 98 % -- 04/30/25 0745 117/90 36 ??C (96.8 ??F) -- 92 18 97 % -- Physical Examination: GENERAL: AOx3, in no acute distress. NECK: No JVD present. CARDIAC: RRR. No murmur, rubs, or gallops. RESPIRATORY: CTAB, no increased effort of breathing. ABDOMEN: Soft, nontender, nondistended. EXTREMITIES: No lower extremity edema, peripheral pulses are 2+ bilaterally. Relevant Lab Results Encounter Date: 04/19/25 ECG 12 lead Result Value Ventricular Rate 120 Atrial Rate 120 ME Interval 198 QRS DURATION 102 QT Interval 294 QTC CALCULATION(BAZETT) 415 P Welch 64 R-Welch 38 T Wave Welch 116 Impression Sinus tachycardia Low voltage QRS Septal infarct , age undetermined Abnormal ECG When compared with ECG of 19-APR-2025 18:24, Premature ventricular complexes are no longer Present Confirmed by Jeffy VERNON, MITESH Pruett ([id number]) on 04/23/2025 8:14:48 AM Lab Results Component Value Date TROPONINI 0.04 07/02/2022 Transthoracic echo (TTE) limited Result Date: 04/30/2025 1 1 [place] [facility] Heart Station [address] [place], [place] [phone] (fax) Echocardiogram-[facility] Name: KRISTY DOHERTY Study Date: 04/30/2025 07:02 AM B/P: 121 mmHg/100 mmHg HR: 87 bpm Date of : 1955 Location:[facility] Height: 68 in. Age: 69 year(s) Patient Room: 3217 Weight: 178 lb. Gender: Male Patient Status:InPt BSA: 1.94 m2 Indication: Limited; pericardial effusion, S/P 35 mm Watchman device FLX, Pericardiocentesis EF 20%, Pacemaker/AICD, Continuous hemodialysis Examination: Limited Echo/Limited Doppler, Color flow imaging Image Quality: Good Patient Consent: Procedure explained to patient Conclusions Left Ventricle: Global left ventricular systolic function is severely reduced. The EF is 20 % visually. Diffuse global hypokinesis. Right Ventricle: Mildly reduced right ventricular systolic function. Doppler studies suggest mildly elevated right sided pressures. Left Atrium: The left atrium appears enlarged. Mitral Valve: Mild mitral regurgitation. Aortic Valve: Mild aortic valve regurgitation. Tricuspid Valve: Moderate tricuspid regurgitation. Tricuspid Valve Measurements RVSP: 42 mmHg. Pericardium: No pericardial effusion. Measurements Left Ventricle Label Value Normal Value LVEF visual 20 % Tricuspid Valve Label Value Normal Value RA Pressure 8 mmHg RVSP 42 mmHg TR Vmax 2.93 m/s Great Vessels Label Value Normal Value IVC 2 cm (1.2cm - 2.3cm) Valvular Assessment LVOT 0.7 - 1.1 m/sec Aortic Valve 1.0 - 1.7 m/sec Mitral Valve 0.6 - 1.3 m/sec Tricuspid Valve 0.3 - 0.7 m/sec Pulmonic Valve 0.6 - 0.9 m/sec Regurgitation Mild Mild Moderate No Findings Left Ventricle: Global left ventricular systolic function is severely reduced. The EF is 20 % visually. Diffuse global hypokinesis. Allscored left ventricular wall segments are hypokinetic. No thrombus is identified in the left ventricle. Right Ventricle: Mildly reduced right ventricular systolic function. A pacemaker wire is seen in the right ventricle. Doppler studies suggest mildly elevated right sided pressures. Left Atrium: The left atrium appears enlarged. Right Atrium: The right atrium is mildly enlarged. Mitral Valve: The mitral valve is normal in mobility and thickness. Mild mitral regurgitation. Aortic Valve: Mildly sclerosed aortic valve cusps. Mild aortic valve regurgitation. The aortic valve is trileaflet. Tricuspid Valve: Normal tricuspid valve. Moderate tricuspid regurgitation. Tricuspid Valve Measurements RVSP: 42 mmHg. Pulmonic Valve: Normal pulmonary valve. No pulmonary regurgitation. Great Vessels: IVC: The IVC is normal in size. There is no inspiratory collapse of the IVC. Pericardium: No pericardial effusion. The Attending Physician has reviewed the examination with the fellow Procedure Staff Reading Group: [facility] Referring Physician: RUDY KING Property Consultant: June Brumfield RDCS,RVT, RN, BSN Ordering Physician: Wil Sotomayor MD Wall Motion Scores -1 - hyperkinesia, 0 - not evaluated, 1 - normal, 2 - hypokinesia, 3 - akinesia, 4 - dyskinesia Limited Echo (TTE) w/wo Limited Doppler, Color Flow, Imaging Agent, Strain, 3D, Bubble Study Result Date: 04/23/2025 1 1 [place] [facility] Heart Station [address] [place] [address] [phone] (fax) Echocardiogram-[facility] Name: KRISTY DOHERTY Study Date: 04/23/2025 07:26 AM B/P: 90 mmHg/74 mmHg HR: 111 bpm Date of : 1955 Location: [facility] Height: 68 in. Age: 69 year(s) Patient Room: 3183 Weight: 177 lb. Gender: Male Patient Status: InPt BSA: 1.94 m2 Indication: Limited; pericardial effusion, S/P 35 mm Watchman device FLX, S/P Pericardiocentesis, H/O 25-30%, Pacemaker/AICD Examination: Limited Echo/Limited Doppler, Color flow imaging Image Quality: Good Patient Consent: Procedure explained to patient Conclusions Left Ventricle: Global left ventricular systolic function is severely reduced. The EF is 20 % visually. Regional wall motion abnormalities (see diagram). Right Ventricle: Severely reduced right ventricular systolic function. A pacemaker wire is seen in the right ventricle. Doppler studies suggest moderately elevated right sided pressures (elevated pulmonary pressure). Mitral Valve: Mild to moderate mitral regurgitation. Aortic Valve: Mild aortic valve regurgitation. Tricuspid Valve: Moderate tricuspid regurgitation. Overall Conclusions: Decrease in right ventricular systolic function and increase in tricuspid insufficiency when compared to previous study. Measurements Left Ventricle Label Value Normal Value LVEF visual 20 % Tricuspid Valve Label Value Normal Value RA Pressure 8 mmHg RVSP 49 mmHg TR Vmax 3.22 m/s Great Vessels Label Value Normal Value IVC 2 cm (1.2cm - 2.3cm) Valvular Assessment LVOT 0.7 - 1.1 m/sec Aortic Valve 1.0 - 1.7 m/sec Mitral Valve 0.6 - 1.3 m/sec Tricuspid Valve 0.3 - 0.7 m/sec Pulmonic Valve 0.6 - 0.9 m/sec Regurgitation Mild MildMod Moderate Findings Left Ventricle: Global left ventricular systolic function is severely reduced. The EF is 20 % visually. Regional wall motion abnormalities (see diagram). The basal anterior, basal anteroseptal, basal inferoseptal, basal inferior, basal inferolateral, basal anterolateral, mid inferoseptal, mid inferior and mid inferolateral left ventricular wall segments are hypokinetic. The mid anterior, mid anteroseptal, mid anterolateral, apical anterior, apical septal, apical inferior, apical lateral and apex left ventricular wall segments are akinetic. Right Ventricle: The right ventricular free wall is akinetic in the distaltwo- thirds. Severely reduced right ventricular systolic function. A pacemaker wire is seen in the right ventricle. Doppler studies suggest moderately elevated right sided pressures (elevated pulmonary pressure). Mitral Valve: The mitral valve is normal in mobility and thickness. Mild to moderate mitral regurgitation. Aortic Valve: The aortic valve opens well. Mildly sclerosed aortic valve cusps. Mild aortic valve regurgitation. Tricuspid Valve: Normal tricuspid valve. Moderate tricuspid regurgitation. Pulmonic Valve: Pulmonary valve not visualized. Great Vessels: IVC: The IVC is normal in size. There is no inspiratory collapse of the IVC. Pericardium: There is a minimal pericardial effusion. Procedure Staff Reading Group: [facility] Referring Physician: RUDY KING Property Consultant: June Brumfield RDCS, RVT, RN, BSN Ordering Physician: FANI DENNEY Wall Motion Scores -1 - hyperkinesia, 0 - not evaluated, 1 - normal, 2 - hypokinesia, 3 - akinesia, 4 - dyskinesia Transthoracic echo (TTE) limited Result Date: 04/20/2025 1 1 [facility] Heart Station [address] [place] [address] [phone] (fax) Echocardiogram-[facility] Name: KRISTY DOHERTY Study Date: 04/20/2025 01:28 PM B/P: 83 mmHg/58 mmHg HR: 96 bpm Date of : 1955 Location: [facility] Height: 68 in. Age: 69 year(s) Patient Room: 3183 Weight: 179 lb. Gender: Male Patient Status: InPt BSA: 1.95 m2 Indication: Limited; evaluate pericardial effusion, S/P 35 mm Watchman FLX, H/O EF 25 - 30 %, Pacemaker, Cardiomyopathy Examination: Limited Echo/Limited Doppler, Color flow imaging Image Quality: Good Patient Consent: Procedure explained to patient Conclusions Left Ventricle: Global left ventricular systolic function is severely reduced. The EF is 30 % visually. The septum is abnormal in its motion. Right Ventricle: Right ventricular systolic function appears normal. A pacemaker wire is seen in the right ventricle. Doppler studies suggest normal right sided pressures. Pericardium: No pericardial effusion. Measurements Left Ventricle Label Value Normal Value LVEF visual 30 %Tricuspid Valve Label Value Normal Value RA Pressure 3 mmHg RVSP 24 mmHg TR Vmax 2.29 m/s Great Vessels Label Value Normal Value IVC 1.1 cm (1.2cm - 2.3cm) Valvular Assessment LVOT 0.7 - 1.1 m/sec Aortic Valve 1.0 - 1.7 m/sec Mitral Valve 0.6 - 1.3 m/sec Tricuspid Valve 0.3 - 0.7 m/sec Pulmonic Valve 0.6 - 0.9 m/sec Regurgitation Trivial Trivial Trivial Findings Left Ventricle: Global left ventricular systolic function is severely reduced. The EF is 30 % visually. The septum is abnormal in its motion. All scored left ventricular wall segments are hypokinetic. Right Ventricle: Right ventricular systolic function appears normal. A pacemaker wire is seen in the right ventricle. Doppler studies suggest normal right sided pressures. Mitral Valve: The mitral valve is normal in mobility and thickness. Trivial mitral regurgitation. Aortic Valve: Mildly sclerosed aortic valve cusps. Trivial aortic valve regurgitation. Tricuspid Valve: Normal tricuspid valve. Trivial tricuspid regurgitation. Great Vessels: IVC: The IVC is normal in size. There is inspiratory collapse of the IVC. Pericardium: No pericardial effusion. Procedure Staff Reading Group: [facility] Referring Physician:RUDY KING Property Consultant: June Brumfield RDCS, RVT, RN, BSN Ordering Physician: VENU SAMANIEGO Wall Motion Scores -1 - hyperkinesia, 0 - not evaluated, 1 - normal, 2 - hypokinesia, 3 - akinesia, 4 - dyskinesia Transthoracic echo (TTE) limited Result Date: 04/19/2025 1 1 [place] [facility] Heart Station [address] [place] [id number] [phone] (fax) Echocardiogram-[facility] Name: KRISTY DOHERTY Study Date: 04/19/2025 02:13 PM B/P: / HR: Date of : 1955 Location: [facility] Height: 68 in. Age: 69 year(s) Patient Room: 3183 Weight: 182 lb. Gender: Male Patient Status: InPt BSA: 1.96 m2 Indication: pericardialeffusion, h/o 35mm Watchman FLX Examination: Limited Echo Image Quality: Fair Findings Pericardium: Moderate pericardial effusion baseline. Post pericardiocentesis there is minimal pericardial effusion. Procedure Staff Reading Group: [facility] Referring Physician: RUDY KING Property Consultant: SAMI Starr, RDCS Ordering Physician: VENU SAMANIEGO Complete Echo (TTE) w/wo Imaging Agent, Strain, 3D, Bubble Study Result Date: 04/19/2025 1 1 [place] [facility] Heart Station [address] [place] [phone] (fax) Echocardiogram-[facility] Name: KRISTY DOHERTY Study Date: 04/19/2025 12:46 PM B/P: 97 mmHg/71 mmHg HR: Date of : 1955 Location: [facility] Height: 68 in. Age: 69 year(s) Patient Room: 3183 Weight: 182 lb. Gender: Male Patient Status: InPt BSA: 1.96 m2 Indication: Chest Pain, s/p 35mm Watchman FLX Examination: Echocardiogram (Complete) ImageQuality: Fair Patient Consent: Procedure explained to patient Conclusions Left Ventricle: The left ventricle is normal size. Global left ventricular systolic function is normal. The EF is 60 % visually. Left ventricular wall thickness is normal. No regional wall motion abnormality. Right Ventricle:The right ventricle appears normal in size. Right ventricular systolic function appears normal. Doppler studies suggest normal right sided pressures. Left Atrium: Watchman device visualized . The left atrium appears normal in size. Aortic Valve: Mild aortic valve regurgitation. Tricuspid Valve: Mild tricuspid regurgitation. Pericardium: There is a moderate circumfrential pericardial effusion. There is also, significant mitral inflow variations consistent with early tamponade physiology. Measurements Left Ventricle Label Value Normal Value LVOT VTI 11.1 cm (18cm - 22cm) LVOT PGmax 3 mmHg LVEF visual 60 % LVOT PGmean 1 mmHg Right Ventricle Label Value Normal Value TAPSE 0.97 cm Aortic Valve Label Value Normal Value AV DVI 0.5 AV VTI 23.1 cm Mitral Valve Label Value Normal Value MV E Vmax 0.54 m/s MV A Vmax 0.79 m/s MV E/A 0.68 MV E/E' lateral 7.6 MV E' lateral 0.07 m/s Tricuspid Valve Label Value Normal Value RA Pressure 3 mmHg RVSP 30 mmHg TR Vmax 2.59 m/s Valvular Assessment LVOT 0.7 - 1.1 m/sec Aortic Valve 1.0 - 1.7 m/sec Mitral Valve 0.6 - 1.3 m/sec Tricuspid Valve 0.3 - 0.7 m/sec Pulmonic Valve 0.6 - 0.9 m/sec Regurgitation Mild No Mild No Max Velocity 0.81 m/sec 1.62 m/s 0.54m/sec 1.02 m/s Max Gradient 10.00 mmHg 4.00 mmHg Mean Gradient 5.00 mmHg Findings Left Ventricle: The left ventricle is normal size. Global left ventricular systolic function is normal. The EF is 60 % visually. Left ventricular wall thickness is normal. No regional wall motion abnormality. Right Ventricle: The right ventricle appears normal in size. Right ventricular systolic function appears normal. Doppler studies suggest normal right sided pressures. Left Atrium: Watchman device visualized .The left atrium appears normal in size. Right Atrium: The right atrium appears normal in size. Mitral Valve: The mitral valve is normal in mobility and thickness. No mitral regurgitation. Aortic Valve: Focal aortic cusp thickening is noted. Mild aortic valve regurgitation. Tricuspid Valve: Normal tricuspid valve. Mild tricuspid regurgitation. Pulmonic Valve: Normal pulmonary valve. No pulmonary regurgitation. Aorta: The aortic root exhibits normal size. Great Vessels: IVC: Normal size and course of the IVC. Pericardium: There is a moderate circumfrential pericardial effusion. There is also, significant mitral inflow variations consistent with early tamponade physiology. Procedure Staff Reading Group: [facility] Property Consultant: Bryanna Cazares RDCS Ordering Physician: HKAAN Canchola signed by MD Mitesh Vernon on 04/19/2025 at 01:44 PM Limited Transthoracic Echo (TTE) w/wo Contrast, Color Flow, Imaging Agent, Strain, 3D, Bubble Study Result Date: 02/07/2025 1 1 [facility] Heart Station [address] [place] [address] [phone] (fax) Echocardiogram-[facility] Name: KRISTY DOHERTY Study Date: 02/07/2025 08:02 AM B/P: 118 mmHg/85 mmHg HR: 63 bpm Date of : 1955 Location: [facility] Height: 68 in. Age: 69 year(s) Patient Room: 3176 Weight: 186 lb. Gender: Male Patient Status: InPt BSA: 1.98 m2 Indication: Atrial Fibrillation, Pacemaker, s/p 35mm Watchman FLX Examination: Limited Echo, Color flow imaging, Lumason Contrast Image Quality: Fair Patient Consent: Procedure explained to patient Exam Details Contrast: I.V. dose of Lumason Conclusions Left Ventricle: The left ventricle is [...] borders. Well seated 35mm Watchman FLX PRO. Measurements Left VentricleLabel Value Normal Value LVDd, 2D 5.86 cm (4.2cm - 5.9cm) LVDs, 2D 5.21 cm (2.1cm - 4cm) IVSd, 2D 0.91 cm (0.6cm - 1.1cm) LVPWd, 2D 1.06 cm (0.6cm - 1cm) LV Mass, 2D ASE 232.58 g LV Mass Index, 2D ASE 117.5 g/m?? (50g/m?? - 102.4g/m??) RWT, MM 0.36 (0 - 0.42) LVSVI, 2D 20.7 ml/m2 Aorta Label Value Normal Value AoRoot, 2D 3.4 cm (1.4cm - 3.8cm) Valvular Assessment LVOT 0.7 - 1.1 m/sec Aortic Valve1.0 - 1.7 m/sec Mitral Valve 0.6 - 1.3 m/sec Tricuspid Valve 0.3 - 0.7 m/sec Pulmonic Valve 0.6 - 0.9 m/sec Regurgitation Mild trivMil Findings Left Ventricle: The left ventricle is normal size. Global left ventricular systolic function is severely reduced. EF range is estimated at 25 % -30 %. Leftventricular wall thickness is increased. Diffuse global hypokinesis. Right Ventricle: The right ventricle is normal in size. Normal right ventricular systolic function. A pacemaker wire is seen in the right atrium and right ventricle. Left Atrium: The left atrium is normal in size. Right Atrium: The right atrium is normal in size. Mitral Valve: There is nonspecific thickening of the mitral valve leaflet. Trvial to mild mitral regurgitation. Aortic Valve: Focal aortic cusp thickening is noted. Mild aortic valve regurgitation. Tricuspid Valve: Normal tricuspid valve. Pulmonic Valve: Normal pulmonary valve. Aorta: The aortic root exhibits normal size. Great Vessels: IVC: The IVC is normal in size. Pericardium: No pericardial effusion. Procedure Staff Reading Group: [facility] Referring Physician: RUDY KING Property Consultant: SAMI Starr, RDCS Ordering Physician: CHUCK FUNEZ Transesophageal echo (MASON) Result Date: 12/01/2024 1 [facility] Heart Station [address] [place] [address] [phone] (fax) Transesophageal Echocardiogram-[facility] Name: KRISTY DOHERTY Study Date: 12/01/2024 12:00 PM B/P: 134 mmHg/87 mmHg HR: 80 bpm Date of : 1955 Location: [facility] Height: 68 in. Age: 69 year(s) Patient Room: Weight: 194 lb. Gender: Male PatientStatus: OutPt BSA: 2.02 m2 Indication: Atrial Fibrillation, Pre-Watchman Examination: MASON, Color flow imaging Image Quality: Excellent Patient Consent: Informed, written consent was obtained for the procedure Exam Location: A MASON was performed in the [facility] without complications Anesthesia Pharyngeal anesthesia with viscous Lidocaine Conclusions Left Ventricle: The left ventricle is normal size. Global left ventricular systolic function is severely reduced. EF range is estimated at 25 % -30 %. Left ventricular wall thickness is normal. Diffuse global hypokinesis. Right Ventricle: The right ventricle appears normal in size. Normal right ventricular systolic function. Left Atrium: The left a trium is severely enlarged. Left Atrium Appendage: The left atrial appendage is monolobular. Normalleft atrial appendage, no thrombus seen. ROBB measutments [...] 50 micrograms Valvular Assessment LVOT 0.7 - 1.1m/sec Aortic Valve 1.0 - 1.7 m/sec Mitral Valve 0.6 - 1.3 m/sec Tricuspid Valve 0.3 - 0.7 m/sec Pulm onic Valve 0.6 - 0.9 m/sec Regurgitation Mod [...] atrium is severely enlarged. Left Atrium Appendage: Theleft atrial appendage is normal. The left atrial [...] is a minimal pericardial effusion. The Attending Ph ysician was present and personally reviewed the examination with the fellow Procedure Staff ReadingGroup: [facility] Referring Physician: RUDY KING Property Consultant: DORIAN Walker Ordering Physician: Hay William MD No nuclear medicine results found for the past 12 months Relevant Imaging Results Transthoracic echo (TTE) limited 1 1 [facility] Heart Station [address] [place] [address] [phone] (fax) Echocardiogram-[facility] Name: KRISTY DOHERTY Study Date: 04/30/2025 07:02 AM B/P: 121 mmHg/100 mmHg HR: 87 bpm Date of : 1955 Location: [facility] Height: 68 in. Age: 69 year(s) Patient Room: 3217 Weight: 178 lb. Gender: Male Patient Status: InPt BSA: 1.94 m2 Indication: Limited; pericardial effusion, S/P 35 mm Watchman device FLX, Pericardiocentesis EF 20%, Pacemaker/AICD, Continuous hemodialysis Examination: Limited Echo/Limited Doppler, Color flow imaging Image Quality: Good Patient Consent: Procedure explained to patient Conclusions Left Ventricle: Global left ventricular systolic function is severely reduced. The EF is 20 % visually. Diffuse global hypokinesis. Right Ventricle: Mildly reduced right ventricular systolic function. Doppler studies suggest mildly elevated right sided pressures. Left Atrium: The left atrium appears enlarged. Mitral Valve: Mild mitral regurgitation. Aortic Valve: Mild aortic valve regurgitation. Tricuspid Valve: Moderate tricuspid regurgitation. Tricuspid Valve Measurements RVSP: 42 mmHg. Pericardium: No pericardial effusion. Measurements Left Ventricle Label Value Normal Value LVEF visual 20 % Tricuspid Valve Label Value Normal Value RA Pressure 8 mmHg RVSP 42 mmHg TR Vmax 2.93 m/s Great Vessels Label Value Normal Value IVC 2 cm (1.2cm - 2.3cm) Valvular Assessment LVOT 0.7 - 1.1 m/sec Aortic Valve 1.0 - 1.7 m/sec Mitral Valve 0.6 - 1.3 m/sec Tricuspid Valve 0.3 - 0.7 m/sec Pulmonic Valve 0.6 - 0.9 m/sec Regurgitation Mild Mild Moderate No Findings Left Ventricle: Global left ventricular systolic function is severely reduced. The EF is 20 % visually. Diffuse global hypokinesis. All scored left ventricular wall segments are hypokinetic. No thrombus is identified in the left ventricle. Right Ventricle: Mildly reduced right ventricular systolic function. A pacemaker wire is seen in the right ventricle. Doppler studies suggest mildly elevated right sided pressures. Left Atrium: The left atrium appears enlarged. Right Atrium: The right atrium is mildly enlarged. Mitral Valve: The mitral valve is normal in mobility and thickness. Mild mitral regurgitation. Aortic Valve: Mildly sclerosed aortic valve cusps. Mild aortic valve regurgitation. The aortic valve is trileaflet. Tricuspid Valve: Normal tricuspid valve. Moderate tricuspid regurgitation. Tricuspid Valve Measurements RVSP: 42 mmHg. Pulmonic Valve: Normal pulmonary valve. No pulmonary regurgitation. Great Vessels: IVC: The IVC is normal in size. There is no inspiratory collapse of the IVC. Pericardium: No pericardial effusion. The Attending Physician has reviewed the examination with the fellow Procedure Staff Reading Group: [facility] Referring Physician: RUDY KING Property Consultant: June Brumfield RDCS, RVT, RN, BSN Ordering Physician: Wil Sotomayor MD Wall Motion Scores -1 - hyperkinesia, 0 - not evaluated, 1 - normal, 2 - hypokinesia, 3 - akinesia, 4 - dyskinesia Assessment: Cardiogenic shock, cardiac index 1.3 L/min/m2, likely secondary to acute heart failure exacerbation Acute right ventricular failure Melanie 0.72 < 1 suggestive of significant RV failure RHC suggestive of biventricular failure Acute on chronic heart failure with reduced ejection fraction s/p ICD placement, NYHA II/III 04/23/2025 echo with EF 20%, severely reduced RV systolic function, mild-moderate MR, mild AV regurg, mild TR, elevated RVSP 49 Non-oliguric acute kidney injury, worsening with decreased urinary output Likely underlying cardiorenal syndrome: type1 Moderate circumferential pericardial effusion s/p RHC and pericardiocentesis (300cc removal) with drain placement on 04/19/25 - unclear etiology, cannot rule out acute pericarditis Pericardial drain removed 04/20 after resolution of effusion on 04/20 echo Repeat echo limited 04/23/2025 with EF 20%, severely reduced RV systolic function, and no inspiratory collapse of IVC (new findings), and minimal pericardial effusion TTE 04/30: EF 20%, mild MR, AR, moderate TR, no pericardial effusion Frequent PVC's and runs of NSVT on telemetry, on amiodarone gtt Paroxysmal A-fib [id number] (heart failure, hypertension, age 65-74) s/p Watchman procedure on 02/06/2025 (due to prior bleeding with eliquis) Nonobstructive coronary artery disease Hyperlipidemia (unspecified) on lipitor 40 Plan: Off dobutamine since 04/30 Will slowly reintroduce GDMT as BP and kidney function tolerate: Restarting aldactone 25, farxiga 10 today Continue holding entresto, toprol CRRT per nephrology team Resume colchicine 0.6 mg as dialysis has been initiated. Stopped amiodarone drip on 04/29, will monitor Aggressive electrolyte replacement to maintain potassium > 4 and magnesium > 2 Continue Cardiac medications as tolerated (currently limited by hypotension) Lipitor 40 mg, aspirin 81 mg & Plavix 75 mg Holding: Toprol-XL 12.5 mg daily, Farxiga 10 mg daily, Entresto 97/103 mg b.I.d. & Aldactone 25mg. Cardiology will continue to follow. Please call with any questions. Felicita Mooney MD Internal medicine resident, PGY-2 [facility] Cosigned by Mitesh Vernon MD at 05/01/2025 1:45 PM EDT Associated attestation - Mitesh Vernon MD - 05/01/2025 1:45 PM EDT By using the attestations below, the signing clinician agrees that I have read and verify that thedocumentation has been personally reviewed by me and ensure that the documentation accurately reflects the encounter. GC: I personally saw this patient on the day of the encounter with Dr. Joseph, and Dr. Mooney, performed the gonzáles portion(s) of the service and participated in the management and confirm the resident's documentation. Please note there may be an additional personal documentation from me. * Karsten Gage MD - 05/01/2025 7:36 AM EDT Images from the original note were not included. Medical ICU Progress Note Patient - Kristy Doherty Age - 69 y.o. - 1955 Date of Admission - 04/19/2025 10:46 AM HPI/Hospital Course Subjective Kristy Doherty is an 69 y.o. male who came from [place] with chest pain with radiation to neck andback. Past medical history of heart failure with reduced ejection fraction, hypertension, coronary artery disease, cardiomyopathy nonischemic (AICD placed), hyperlipidemia, atrial fibrillation statuspost Watchman , asthma. Patient presents from [place] with chest pain radiating to the neck and back. He states that chest pain started last night was a constant sharp pain all over his chest. He states that the pain radiated to his neck and back rated pain a 5 out of 10. Patient stated when he was on his right side pain in his neck improved. At outside hospital patient was found to have small pericardial effusion on CT as well as potential atelectasis versus pneumonia. He also had a sodium of 123. His troponins were downtrending and from 11.5-10.5. Patient was also hypotensive at outside hospital which he states he has been hypotensive now for the past 2 weeks. At bedside patientstates that chest pain has improved and is now a 2 out of 10. He still states that chest pain radiates up to his neck. Along with chest pain he complains of fever, sweats, chest pain, shortness of breath, fatigue, weakness. Patient denies chills, palpitations, leg swelling, wheezing abdominal pain,nausea, vomiting, diarrhea, lightheadedness, dizziness, headache, visual changes. Patient was then taken to the catheterization lab for emergent pericardiocentesis due to echo showing signs of cardiac tamponade. A right heart cath, left heart cath and pericardiocentesis were performed. They able to successfully drain the pericardial fluid with significant proven in blood pressure following pericardiocentesis and drain placement. There was minimal drain output and repeat echo showed no pericardial effusions. The patient was being managed by the hospitalist service and plans for discharge were in place, however the patient had recurrence of his pericardial effusion along with hypotension. Repeat echoes showed worsening ejection fraction and severely reduced RV systolic function with no inspiratory collapse of the IVC. Patient was taken back to the catheterization lab for a right heart cath which demonstrated elevated wedge pressure and RV pressures. A Assawoman-Shannan catheter was placed for further monitoring and the patient was transferred to the medical ICU. SUBJECTIVE Patient seen and examined at the bedside. Currently has no complaints and is saturating well. OBJECTIVE Vitals height is 1.727 m (5' 8 ) and weight is 81.3 kg (179 lb 3.7 oz). His temperature is 35.8 ??C (96.4 ??F). His blood pressure is 103/92 (abnormal) and his pulse is 82. His respiration is 18 and oxygen saturation is 100%. Temp: [33.5 ??C (92.3 ??F)-36.5 ??C (97.7 ??F)] 35.8 ??C (96.4 ??F) Heart Rate: [81-96] 82 Resp: [12-30] 18 BP: (90-129)/(63-94) 103/92 Physical Exam: Physical Exam Constitutional: General: He is not in acute distress. Appearance: Normal appearance. He is not ill-appearing. Eyes: Extraocular Movements: Extraocular movements intact. Conjunctiva/sclera: Conjunctivae normal. Pupils: Pupils are equal, round, and reactive to light. Cardiovascular: Rate and Rhythm: Normal rate. Rhythm irregular. Pulses: Normal pulses. Pulmonary: Effort: Pulmonary effort is normal. Breath sounds: Normal breath sounds. Abdominal: General: Abdomen is flat. Palpations: Abdomen is soft. Neurological: General: No focal deficit present. Mental Status: He is alert and oriented to person, place, and time. Weight: Admission weight: 82.6 kg (182 lb) Wt Readings from Last 1 Encounters: 05/01/25 81.3 kg (179 lb 3.7 oz) Input/Output: Intake/Output Summary (Last 24 hours) at 05/01/2025 0736 Last data filed at 05/01/2025 0700 Gross per 24 hour Intake 5265.9 ml Output 9044 ml Net -3778.1 ml Ventilator: Lab Results ABG: Results from last 7 days Lab Units 04/28/25 0854 PH ART 7.36 PCO2 ART mmHg 30* PO2 ART mmHg 86 HCO3 ART mmol/L 16.9* CBC: Results from last 7 days Lab Units 05/01/25 03004/30/25 0410 04/29/25 0304 WBC AUTO 10*3/uL 7.39 8.77 9.76 HEMOGLOBIN g/dL 8.6* 8.2* 8.3* HEMATOCRIT % 25.1* 23.9* 23.4* PLATELETS AUTO 10*3/uL 159 143* 133* Coagulation: Metabolic Panel: Results from last 7 days Lab Units 05/01/25 03005/01/25 0047 04/30/252011 POTASSIUM mmol/L 3.7 3.8 3.5 CHLORIDE mmol/L 94* 94* 94* CO2 mmol/L 35* 35* 34* BUN mg/dL 12 14 CREATININE mg/dL 1.04 1.21 1.19 GLUCOSE mg/dL 115* 113* 135* CALCIUM mg/dL 7.9* 7.8* 7.9* MAGNESIUM mg/dL 2.0 2.1 1.8* Liver Panel: Results from last 7 days Lab Units 05/01/25304 04/30/25 0410 04/29/25 0238 ALBUMIN g/dL 3.4* 3.2* 3.1* BILIRUBIN TOTAL mg/dL 0.9 0.8 0.7 ALT U/L 182* 211* 267* AST U/L 86* 119* 252* ALK PHOS U/L 65 54 56 AMMONIA umol/L -- -- 56 Glucose: Hgb A1c: Cardiac: No lab exists for component: TROPI , TROPONIN Anemia Labs: Results from last 7 days Lab Units 04/29/25 0814 FERRITIN ng/mL 1,265.0* IRON ug/dL 33* TIBC ug/dL 214* IRON SATURATION % 15* Lipid Panel: No lab exists for component: CHOLHDL Urine Labs: Lab Results Component Value Date UROBILINOGEN Normal 04/26/2025 Additional Labs: No lab exists for component: LACTICACID , PROCALCITON Radiology Transthoracic echo (TTE) limited 1 1 [facility] Heart Station [address] [place] [address] [phone] (fax) Echocardiogram-[facility] Name: KRISTY DOHERTY Study Date: 04/30/2025 07:02 AM B/P: 121 mmHg/100 mmHg HR: 87 bpm Date of : 1955 Location: [facility] Height: 68 in. Age: 69 year(s) Patient Room: 3217 Weight: 178 lb. Gender: Male Patient Status: InPt BSA: 1.94 m2 Indication: Limited; pericardial effusion, S/P 35 mm Watchman device FLX, Pericardiocentesis EF 20%, Pacemaker/AICD, Continuous hemodialysis Examination: Limited Echo/Limited Doppler, Color flow imaging Image Quality: Good Patient Consent: Procedure explained to patient Conclusions Left Ventricle: Global left ventricular systolic function is severely reduced. The EF is 20 % visually. Diffuse global hypokinesis. Right Ventricle: Mildly reduced right ventricular systolic function. Doppler studies suggest mildly elevated right sided pressures. Left Atrium: The left atrium appears enlarged. Mitral Valve: Mild mitral regurgitation. Aortic Valve: Mild aortic valve regurgitation. Tricuspid Valve: Moderate tricuspid regurgitation. Tricuspid Valve Measurements RVSP: 42 mmHg. Pericardium: No pericardial effusion. Measurements Left Ventricle Label Value Normal Value LVEF visual 20 % Tricuspid Valve Label Value Normal Value RA Pressure 8 mmHg RVSP 42 mmHg TR Vmax 2.93 m/s Great Vessels Label Value Normal Value IVC 2 cm (1.2cm - 2.3cm) Valvular Assessment LVOT 0.7 - 1.1 m/sec Aortic Valve 1.0 - 1.7 m/sec Mitral Valve 0.6 - 1.3 m/sec Tricuspid Valve 0.3 - 0.7 m/sec Pulmonic Valve 0.6 - 0.9 m/sec Regurgitation Mild Mild Moderate No Findings Left Ventricle: Global left ventricular systolic function is severely reduced. The EF is 20 % visually. Diffuse global hypokinesis. All scored left ventricular wall segments are hypokinetic. No thrombus is identified in the left ventricle. Right Ventricle: Mildly reduced right ventricular systolic function. A pacemaker wire is seen in the right ventricle. Doppler studies suggest mildly elevated right sided pressures. Left Atrium: The left atrium appears enlarged. Right Atrium: The right atrium is mildly enlarged. Mitral Valve: The mitral valve is normal in mobility and thickness. Mild mitral regurgitation. Aortic Valve: Mildly sclerosed aortic valve cusps. Mild aortic valve regurgitation. The aortic valve is trileaflet. Tricuspid Valve: Normal tricuspid valve. Moderate tricuspid regurgitation. Tricuspid Valve Measurements RVSP: 42 mmHg. Pulmonic Valve: Normal pulmonary valve. No pulmonary regurgitation. Great Vessels: IVC: The IVC is normal in size. There is no inspiratory collapse of the IVC. Pericardium: No pericardial effusion. The Attending Physician has reviewed the examination with the fellow Procedure Staff Reading Group: [facility] Referring Physician: RUDY KING Property Consultant: June Brumfield RDCS, PERFECTOT, RN, BSN Ordering Physician: Wil Sotomayor MD Wall Motion Scores -1 - hyperkinesia, 0 - not evaluated, 1 - normal, 2 - hypokinesia, 3 - akinesia, 4 - dyskinesia Cultures Lab Results Component Value Date BLOOD CULTURE No growth at 5 days 04/20/2025 BLOOD CULTURE No growth at 5 days 04/20/2025 Medications Scheduled: allopurinol, 300 mg, oral, Daily aspirin, 81 mg, oral, Daily with breakfast atorvastatin, 40 mg, oral, Nightly clopidogrel, 75 mg, oral, Daily colchicine, 0.6 mg, oral, BID [Held by provider] dapagliflozin propanediol, 10 mg, oral, Once Daily enoxaparin, 40 mg, subcutaneous, Daily [Held by provider] furosemide, 80 mg, intravenous, q12h hydrocortisone sodium succinate, 50 mg, intravenous, q12h ABILIO ipratropium-albuteroL, 3 mL, nebulization, q6h while awake [Held by provider] metoprolol succinate XL, 12.5 mg, oral, Daily mometasone-formoterol, 2 puff, inhalation, BID [Held by provider] sennosides-docusate sodium, 1 tablet, oral, BID sod phos di, mono-K phos mono, 500 mg, oral, q4h [Held by provider] spironolactone, 25 mg, oral, Daily Infusions: dialysate 4K with bicarb and calcium 5000 mL, 2,000 mL/hr, Last Rate: 2,000 mL/hr (05/01/25 0059) epoprostenol (Veletri) 500 mcg in sodium chloride 0.9 % 100 mL (5 mcg/mL) infusion, 4 ng/kg/min, Last Rate: 4 ng/kg/min (05/01/25 0700) [Held by provider] milrinone, 0.25 mcg/kg/min, Last Rate: Stopped (04/26/25 1112) sodium bicarbonate 150 mEq in sterile water 1,000 mL infusion, 200 mL/hr, Last Rate: 200 mL/hr (05/01/25 0700) As Needed: PRN medications: acetaminophen, albuterol, alteplase, glucose OR dextrose 50 % in water (D50W),guaiFENesin, heparin (porcine), ipratropium-albuteroL, melatonin, naloxone OR naloxone OR naloxone, ondansetron ODT OR ondansetron, simethicone, sodium chloride ASSESSMENT AND PLAN Assessment Cardiogenic shock secondary to acute on chronic heart failure exacerbation EF 20% s/p ICD Pericardial effsuion s/p drainage Right pleural effusion Acute pericarditis Paroxysmal atrial fibrillation Frequent PVCs HTN HLD Plan Cardiogenic shock secondary to acute on chronic heart failure exacerbation EF 20% s/p ICD Pericardial effusion s/p drainage Patient had 300 cc removal with drain placement on 04/19, repeat echo on 04/23 showed severely reduced EF 20% and RV systolic function along with no inspiratory collapse of IVC Pericardial drain was removed on 04/20 due to resolution of effusion Assawoman Shannan placed on 04/24, has showed improvement in CO and CI--removed as hematoma was forming and his CI and CO improved Have weaned off dobutamine Added on hydrocortisone Good urine output, lasix held as CRRT was started Will restart GDMT as appropriate once stable, holding for now Repeat ECHO on 04/30 shows EF 20% with no effusion Palliative care on board: continue all aggressive measures Appreciate cardiology input Acute renal injury, improving on CRRT Metabolic acidosis, improved Patient has had increase in creatinine to 3.36 from baseline normal --> has now improved to 1.04 Likely is due to combination of shock, cardiorenal syndrome, along with receiving IV contrast a couple days ago. Anticipate improvement once blood pressure stabilizes Bedside bladder ultrasound does not show any acute retention/obstruction Urine studies ordered: FeNa 2.6% showing ATN Patient showing signs of early/minimal pulmonary edema from volume overload, has had improvement Nephrology consulted Stopped lasix IV 80mg BID and IV drip Continuing CRRT, BP too soft to tolerate HD Urine output has improved along with kidney function Stopped sodium bicarbonate since pre filter fluid is also bicarbonate and would not want to cause alkalosis New layering right pleural effusion Patient had increased cough and crackles on exam today (04/29) prompting a CXR CXR shows vascular congestion with a new right basilar airspace opacification as well as a layeringright effusion No fevers/chills or WBC count making infectious process less likely Expect improvement with more CRRT sessions, if it worsens we can consider diagnostic thoracentesis if needed Acute normocytic anemia of chronic disease Hemoglobin is 8.3 from baseline normal a week ago Likely secondary to acute renal disease Ordered iron studies and started IV Aranesp Iron is decreased at 33 and elevated ferritin at 1265. Low TIBC and saturation Consistent with anemia of chronic disease Hyponatremia, improving Likely due to volume overload from cardiogenic shock along with aggressive diuresis Sodium is 135, continuing to trend Urine studies ordered Possible acute pericarditis Could explain the pericardial effusion Can restart colchicine as kidney function has improved and on CRRT Continue allopurinol Paroxysmal atrial fibrillation. Controlled CHADSVASC 3 (HTN, CHF, age) Had Watchamn on 01/2025 due to prior Eliquis bleeding Currently on aspirin and Plavix, continuing Rate controlled on Toprol 12.5 BID, continue as BP allows Stopped amiodarone drip Frequent PVCs on tele, improving Likely is due current cardiogenic shock Toprol was on for suppression but holding in cardiogenic shock Continue tele and monitoring, appears less frequent Last ABG: None Fluids: CRRT Pressor support: none Lines (location & placement): L fem trialyis, lanier DVT prophylaxis: Heparin subq Diet: Regular Code Status: FULL This progress note was completed using a voice commodities requirements analyst system. Every effort was made to ensure accuracy. However, inadvertent computerized commodities requirements analyst errors may be present. Karsten Gage MD PGY2 IM Resident 05/01/25 7:36 AM Cosigned by Dg Power MD at 05/01/2025 2:19 PM EDT Associated attestation - Dg Power MD - 05/01/2025 2:19 PM EDT The patient was seen and examined with the resident Dr. Gage and the MICU team. The resident's note was reviewed and findings were confirmed. Assessment and plan discussed during rounds with the resident and delineated below with the following additions/modifications. Off dobutamine drip since yesterday. The patient remains on CVVHD. The nephrology service recommends to continue to monitor the patient on CVVHD off pressors. Correction of hypokalemia, hypophosphatemia and glycemic control in progress. Liver function improving progressively. The patien'st case was discussed with the nephrology and cardiology services and the medical management plan was coordinated. 35 minutes CCM, excluding time performing separately billed procedures, updating family, and teaching * Karsten Gage MD - 04/30/2025 12:41 PM EDT Images from the original note were not included. Medical ICU Progress Note Patient - Kristy Doherty Age - 69 y.o. - 1955 [facility] # - [id number] Date of Admission - 04/19/2025 10:46 AM HPI/Hospital Course Subjective Kristy Doherty is an 69 y.o. male who came from [place] with chest pain with radiation to neck andback. Past medical history of heart failure with reduced ejection fraction, hypertension, coronary artery disease, cardiomyopathy nonischemic (AICD placed), hyperlipidemia, atrial fibrillation statuspost Watchman , asthma. Patient presents from [place] with chest pain radiating to the neck and back. He states that chest pain started last night was a constant sharp pain all over his chest. He states that the pain radiated to his neck and back rated pain a 5 out of 10. Patient stated when he was on his right side pain in his neck improved. At outside hospital patient was found to have small pericardial effusion on CT as well as potential atelectasis versus pneumonia. He also had a sodium of 123. His troponins were downtrending and from 11.5-10.5. Patient was also hypotensive at outside hospital which he states he has been hypotensive now for the past 2 weeks. At bedside patientstates that chest pain has improved and is now a 2 out of 10. He still states that chest pain radiates up to his neck. Along with chest pain he complains of fever, sweats, chest pain, shortness of breath, fatigue, weakness. Patient denies chills, palpitations, leg swelling, wheezing abdominal pain,nausea, vomiting, diarrhea, lightheadedness, dizziness, headache, visual changes. Patient was then taken to the catheterization lab for emergent pericardiocentesis due to echo showing signs of cardiac tamponade. A right heart cath, left heart cath and pericardiocentesis were performed. They able to successfully drain the pericardial fluid with significant proven in blood pressure following pericardiocentesis and drain placement. There was minimal drain output and repeat echo showed no pericardial effusions. The patient was being managed by the hospitalist service and plans for discharge were in place, however the patient had recurrence of his pericardial effusion along with hypotension. Repeat echoes showed worsening ejection fraction and severely reduced RV systolic function with no inspiratory collapse of the IVC. Patient was taken back to the catheterization lab for a right heart cath which demonstrated elevated wedge pressure and RV pressures. A Assawoman-Shannan catheter was placed for further monitoring and the patient was transferred to the medical ICU. SUBJECTIVE Patient seen and examined at the bedside. He denies any chest pain, shortness of breath, or difficulty breathing. He remains on low dose dobutamine and continuing to wean. OBJECTIVE Vitals height is 1.727 m (5' 8 ) and weight is 80.9 kg (178 lb 5.6 oz). His temperature is 33.5 ??C (92.3 ??F). His blood pressure is 112/70 and his pulse is 96. His respiration is 17 and oxygen saturation is 91%. Temp: [33.5 ??C (92.3 ??F)-36.5 ??C (97.7 ??F)] 33.5 ??C (92.3 ??F) Heart Rate: [80-96] 96 Resp: [12-27] 17 BP: (87-125)/(58-92) 112/70 Physical Exam: Physical Exam Constitutional: General: He is not in acute distress. Appearance: Normal appearance. He is not ill-appearing. Eyes: Extraocular Movements: Extraocular movements intact. Conjunctiva/sclera: Conjunctivae normal. Pupils: Pupils are equal, round, and reactive to light. Cardiovascular: Rate and Rhythm: Normal rate. Rhythm irregular. Pulses: Normal pulses. Pulmonary: Effort: Pulmonary effort is normal. Breath sounds: Normal breath sounds. Abdominal: General: Abdomen is flat. Palpations: Abdomen is soft. Neurological: General: No focal deficit present. Mental Status: He is alert and oriented to person, place, and time. Weight: Admission weight: 82.6 kg (182 lb) Wt Readings from Last 1 Encounters: 04/30/25 80.9 kg (178 lb 5.6 oz) Input/Output: Intake/Output Summary (Last 24 hours) at 04/30/2025 1241 Last data filed at 04/30/2025 1215 Gross per 24 hour Intake 5152.42 ml Output 8766 ml Net -3613.58 ml Ventilator: Lab Results ABG: Results from last 7 days Lab Units 04/28/25 0854 PH ART 7.36 PCO2 ART mmHg 30* PO2 ART mmHg 86 HCO3 ART mmol/L 16.9* CBC: Results from last 7 days Lab Units 04/30/25 0410 04/29/25 0304 04/28/25 0321 WBC AUTO 10*3/uL 8.77 9.76 19.72* HEMOGLOBIN g/dL 8.2* 8.3* 9.4* HEMATOCRIT % 23.9* 23.4* 27.2* PLATELETS AUTO 10*3/uL 143* 133* 163 Coagulation: Metabolic Panel: Results from last 7 days Lab Units 04/30/25 1113 04/30/25 0748 04/30/25 0410 POTASSIUM mmol/L 3.8 3.7 3.5 CHLORIDE mmol/L 95* 95* 94* CO2 mmol/L 35* 35* 35* BUN mg/dL 16 16 16 CREATININE mg/dL 1.27 1.29 1.21 GLUCOSE mg/dL 133* 95 100 CALCIUM mg/dL 7.6* 8.0* 8.0* MAGNESIUM mg/dL 1.9 2.0 2.0 Liver Panel: Results from last 7 days Lab Units 04/30/25 0410 04/29/25 0238 04/28/25 1557 ALBUMIN g/dL 3.2* 3.1* 3.1* BILIRUBIN TOTAL mg/dL 0.8 0.7 0.6 ALT U/L 211* 267* 314* AST U/L 119* 252* 514* ALK PHOS U/L 54 56 62 AMMONIA umol/L -- 56 -- Glucose: Hgb A1c: Cardiac: No lab exists for component: TROPI , TROPONIN Anemia Labs: Results from last 7 days Lab Units 04/29/25 0814 FERRITIN ng/mL 1,265.0* IRON ug/dL 33* TIBC ug/dL 214* IRON SATURATION % 15* Lipid Panel: Results from last 7 days Lab Units 04/24/25 0407 CHOLESTEROL mg/dL 98* HDL mg/dL 29 LDL CALC mg/dL 54 TRIGLYCERIDES mg/dL 75 Urine Labs: Lab Results Component Value Date UROBILINOGEN Normal 04/26/2025 Additional Labs: No lab exists for component: LACTICACID , PROCALCITON Radiology Transthoracic echo (TTE) limited 1 1 [facility] Heart Station [address] [place] [address] [phone] (fax) Echocardiogram-[facility] Name: KRISTY DOHERTY Study Date: 04/30/2025 07:02 AM B/P: 121 mmHg/100 mmHg HR: 87 bpm Date of : 1955 Location: [facility] Height: 68 in. Age: 69 year(s) Patient Room: 3217 Weight: 178 lb. Gender: Male Patient Status: InPt BSA: 1.94 m2 Indication: Limited; pericardial effusion, S/P 35 mm Watchman device FLX, Pericardiocentesis EF 20%, Pacemaker/AICD, Continuous hemodialysis Examination: Limited Echo/Limited Doppler, Color flow imaging Image Quality: Good Patient Consent: Procedure explained to patient Conclusions Left Ventricle: Global left ventricular systolic function is severely reduced. The EF is 20 % visually. Diffuse global hypokinesis. Right Ventricle: Mildly reduced right ventricular systolic function. Doppler studies suggest mildly elevated right sided pressures. Left Atrium: The left atrium appears enlarged. Mitral Valve: Mild mitral regurgitation. Aortic Valve: Mild aortic valve regurgitation. Tricuspid Valve: Moderate tricuspid regurgitation. Tricuspid Valve Measurements RVSP: 42 mmHg. Pericardium: No pericardial effusion. Measurements Left Ventricle Label Value Normal Value LVEF visual 20 % Tricuspid Valve Label Value Normal Value RA Pressure 8 mmHg RVSP 42 mmHg TR Vmax 2.93 m/s Great Vessels Label Value Normal Value IVC 2 cm (1.2cm - 2.3cm) Valvular Assessment LVOT 0.7 - 1.1 m/sec Aortic Valve 1.0 - 1.7 m/sec Mitral Valve 0.6 - 1.3 m/sec Tricuspid Valve 0.3 - 0.7 m/sec Pulmonic Valve 0.6 - 0.9 m/sec Regurgitation Mild Mild Moderate No Findings Left Ventricle: Global left ventricular systolic function is severely reduced. The EF is 20 % visually. Diffuse global hypokinesis. All scored left ventricular wall segments are hypokinetic. No thrombus is identified in the left ventricle. Right Ventricle: Mildly reduced right ventricular systolic function. A pacemaker wire is seen in the right ventricle. Doppler studies suggest mildly elevated right sided pressures. Left Atrium: The left atrium appears enlarged. Right Atrium: The right atrium is mildly enlarged. Mitral Valve: The mitral valve is normal in mobility and thickness. Mild mitral regurgitation. Aortic Valve: Mildly sclerosed aortic valve cusps. Mild aortic valve regurgitation. The aortic valve is trileaflet. Tricuspid Valve: Normal tricuspid valve. Moderate tricuspid regurgitation. Tricuspid Valve Measurements RVSP: 42 mmHg. Pulmonic Valve: Normal pulmonary valve. No pulmonary regurgitation. Great Vessels: IVC: The IVC is normal in size. There is no inspiratory collapse of the IVC. Pericardium: No pericardial effusion. The Attending Physician has reviewed the examination with the fellow Procedure Staff Reading Group: [facility] Referring Physician: RUDY KING Property Consultant: June Brumfield RDCS, RVT, RN, BSN Ordering Physician: Wil Sotomayor MD Wall Motion Scores -1 - hyperkinesia, 0 - not evaluated, 1 - normal, 2 - hypokinesia, 3 - akinesia, 4 - dyskinesia Cultures Lab Results Component Value Date BLOOD CULTURE No growth at 5 days 04/20/2025 BLOOD CULTURE No growth at 5 days 04/20/2025 Medications Scheduled: allopurinol, 300 mg, oral, Daily aspirin, 81 mg, oral, Daily with breakfast atorvastatin, 40 mg, oral, Nightly clopidogrel, 75 mg, oral, Daily colchicine, 0.6 mg, oral, BID [Held by provider] dapagliflozin propanediol, 10 mg, oral, Once Daily enoxaparin, 40 mg, subcutaneous, Daily [Held by provider] furosemide, 80 mg, intravenous, q12h hydrocortisone sodium succinate, 50 mg, intravenous, q12h ABILIO ipratropium-albuteroL, 3 mL, nebulization, q6h while awake [Held by provider] metoprolol succinate XL, 12.5 mg, oral, Daily mometasone-formoterol, 2 puff, inhalation, BID sennosides-docusate sodium, 1 tablet, oral, BID sod phos di, mono-K phos mono, 500 mg, oral, q4h [Held by provider] spironolactone, 25 mg, oral, Daily Infusions: dialysate 4K with bicarb and calcium 5000 mL, 2,000 mL/hr, Last Rate: 2,000 mL/hr (04/30/25 1210) epoprostenol (Veletri) 500 mcg in sodium chloride 0.9 % 100 mL (5 mcg/mL) infusion, 4 ng/kg/min, Last Rate: 4 ng/kg/min (04/30/25 1027) [Held by provider] milrinone, 0.25 mcg/kg/min, Last Rate: Stopped (04/26/25 1112) sodium bicarbonate 150 mEq in sterile water 1,000 mL infusion, 200 mL/hr, Last Rate: 200 mL/hr (04/30/25 1032) As Needed: PRN medications: acetaminophen, albuterol, alteplase, glucose OR dextrose 50 % in water (D50W),guaiFENesin, heparin (porcine), ipratropium-albuteroL, melatonin, naloxone OR naloxone OR naloxone, ondansetron ODT OR ondansetron, simethicone, sodium chloride ASSESSMENT AND PLAN Assessment Cardiogenic shock secondary to acute on chronic heart failure exacerbation EF 20% s/p ICD Pericardial effsuion s/p drainage Right pleural effusion Acute pericarditis Paroxysmal atrial fibrillation Frequent PVCs HTN HLD Plan Cardiogenic shock secondary to acute on chronic heart failure exacerbation EF 20% s/p ICD Pericardial effusion s/p drainage Patient had 300 cc removal with drain placement on 04/19, repeat echo on 04/23 showed severely reduced EF 20% and RV systolic function along with no inspiratory collapse of IVC Pericardial drain was removed on 04/20 due to resolution of effusion Assawoman Shannan placed on 04/24, has showed improvement in CO and CI--removed as hematoma was forming and his CI and CO improved Patient is currently on Dobutamine, will wean as able Added on hydrocortisone Good urine output, lasix held as CRRT was started Will restart GDMT as appropriate once stable, holding for now Repeat ECHO on 04/30 shows EF 20% with no effusion Appreciate cardiology input Acute renal injury, improving on CRRT Metabolic acidosis, improved Patient has had increase in creatinine to 3.36 from baseline normal --> has now improved to 1.27 Likely is due to combination of shock, cardiorenal syndrome, along with receiving IV contrast a couple days ago. Anticipate improvement once blood pressure stabilizes Bedside bladder ultrasound does not show any acute retention/obstruction Urine studies ordered: FeNa 2.6% showing ATN Patient showing signs of early/minimal pulmonary edema from volume overload, has had improvement Nephrology consulted Stopped lasix IV 80mg BID and IV drip Continuing CRRT Urine output has improved along with kidney function Stopped sodium bicarbonate since pre filter fluid is also bicarbonate and would not want to cause alkalosis New layering right pleural effusion Patient had increased cough and crackles on exam today (04/29) prompting a CXR CXR shows vascular congestion with a new right basilar airspace opacification as well as a layeringright effusion No fevers/chills or WBC count making infectious process less likely Expect improvement with more CRRT sessions, if it worsens we can consider diagnostic thoracentesis if needed Acute normocytic anemia of chronic disease Hemoglobin is 8.3 from baseline normal a week ago Likely secondary to acute renal disease Ordered iron studies and started IV Aranesp Iron is decreased at 33 and elevated ferritin at 1265. Low TIBC and saturation Consistent with anemia of chronic disease Hyponatremia, improving Likely due to volume overload from cardiogenic shock along with aggressive diuresis Sodium is 132, continuing to trend Urine studies ordered Possible acute pericarditis Could explain the pericardial effusion Can restart colchicine as kidney function has improved and on CRRT Continue allopurinol Paroxysmal atrial fibrillation. Controlled CHADSVASC 3 (HTN, CHF, age) Had Watchamn on 01/2025 due to prior Eliquis bleeding Currently on aspirin and Plavix, continuing Rate controlled on Toprol 12.5 BID, continue as BP allows Stopped amiodarone drip Frequent PVCs on tele Likely is due to tamponade and current cardiogenic shock Toprol for suppression Continue tele and monitoring Last ABG: None Fluids: CRRT Pressor support: Dobutamine, Lines (location & placement): L fem katesgardeniaey DVT prophylaxis: Heparin subq Diet: Regular Code Status: FULL This progress note was completed using a voice commodities requirements analyst system. Every effort was made to ensure accuracy. However, inadvertent computerized commodities requirements analyst errors may be present. Karsten Gage MD PGY2 IM Resident 04/30/25 12:41 PM Cosigned by Dg Power MD at 04/30/2025 4:16 PM EDT Associated attestation - Dg Power MD - 04/30/2025 4:16 PM EDT The patient was seen and examined with the resident Dr. Gage. The resident's note was reviewed and findings were confirmed. Assessment and plan discussed during rounds with the resident and delineated below with the following additions/modifications. The dobutamine drip was just discontinued. Correction of acid-base, electrolytes abnormalities (hypocalcemia, hypochloremia ) and glycemic control in progress. Continue to monitor the vital signs very closely. The patient's case was discussed with the Nephrology and Cardiology services and the medical management plan was coordinated. 40 minutes CCM, excluding time performing separately billed procedures, updating family, and teaching * Igor Greene MD - 04/30/2025 10:06 AM EDT Images from the original note were not included. Nephrology Progress Note Patient : Kristy Doherty; 69 y.o. Location: 3217/3217-01 Attending: Dg Power MD Admit Date: 04/19/2025 Hospital Day: 11 Reason for Consult: Severe LINDA in setting of Cardiogenic Shock Subjective: History of present illness: Kristy Doherty is a 69 y.o. male with PMHx significant for CAD, Atrial fibrillation s/p Watchman procedure, who was transferred from [place] with initial chief complaint of chest and back pain. The patient was noted to have a percardial effusion and echocardiogram and was taken for emergent pericar diocentesis with RHC and LHC. He had recurrence of his effusion with repeat echo demonstrating reduced RV function, RHC with elevated wedge pressures. Patient is seen and examined in MICU. He is currently receiving lasix 40 mg in addition to 40 received earlier. Plan to give 80 mg BID additional. Urine output this far has been minimal. He has a lanier catheter in place. Denies acute complaints incl uding chest pain and shortness of breath. Interval history: 04/30/25 Patient remains on CRRT, tolerating ultrafiltration of 150 cc/h. Afebrile vital signs stable Levophed was weaned off yesterday and dobutamine was weaned off today. Patient continues to tolerate CRRT off of pressors. Seen in ICU no acute complaints denies any chest pain denies any shortness of breath. Urine output 400 cc in the last 24 hours. Objective: Input/Output: Intake/Output Summary (Last 24 hours) at 04/30/2025 1006 Last data filed at 04/30/2025 0900 Gross per 24 hour Intake 5449.4 ml Output 8806 ml Net -3356.6 ml I/O last 3 completed shifts: In: 8901.1 (110 mL/kg) [P.O.:440; I.V.:8111.1 (100.3 mL/kg); IV Piggyback:350] Out: 83538 (167.1 mL/kg) [Urine:25 (0 mL/kg/hr); Other:13778] Weight: 80.9 kg Vital signs: Temperature: Temp: 36.2 ??C (97.2 ??F) TMax: Temp (24hrs), Av.2 ??C (97.2 ??F), Min:35.9 ??C (96.6 ??F), Max:36.5 ??C (97.7 ??F) Respirations: Resp: 19 Pulse: Heart Rate: 92 BP: BP: 122/74 BP Range: Systolic (24hrs), Av , Min:87 , Max:125 Diastolic (24hrs), Av, Min:58, Max:97 Wt Readings from Last 3 Encounters: 04/30/25 80.9 kg (178 lb 5.6 oz) 04/03/25 84.8 kg (187 lb) 02/26/25 85.7 kg (189 lb) Physical Exam Constitutional: General: He is awake. He is not in acute distress. Cardiovascular: Rate and Rhythm: Normal rate. Rhythm irregular. Pulmonary: Effort: Pulmonary effort is normal. Breath sounds: Normal breath sounds. Musculoskeletal: Right lower leg: Edema present. Left lower leg: Edema present. Neurological: General: No focal deficit present. Mental Status: He is alert. Psychiatric: Attention and Perception: Attention normal. Mood and Affect: Mood normal. Speech: Speech normal. Behavior: Behavior is cooperative. Current Medications: Scheduled Meds: allopurinol, 300 mg, oral, Daily aspirin, 81 mg, oral, Daily with breakfast atorvastatin, 40 mg, oral, Nightly clopidogrel, 75 mg, oral, Daily colchicine, 0.6 mg, oral, BID [Held by provider] dapagliflozin propanediol, 10 mg, oral, Once Daily enoxaparin, 40 mg, subcutaneous, Daily [Held by provider] furosemide, 80 mg, intravenous, q12h hydrocortisone sodium succinate, 50 mg, intravenous, q12h ABILIO ipratropium-albuteroL, 3 mL, nebulization, q6h while awake [Held by provider] metoprolol succinate XL, 12.5 mg, oral, Daily mometasone-formoterol, 2 puff, inhalation, BID sennosides-docusate sodium, 1 tablet, oral, BID sod phos di, mono-K phos mono, 500 mg, oral, q4h [Held by provider] spironolactone, 25 mg, oral, Daily Continuous Infusions: dialysate 4K with bicarb and calcium 5000 mL, 2,000 mL/hr, Last Rate: 2,000 mL/hr (04/30/25 0738) DOBUTamine, 2.5-15 mcg/kg/min, Last Rate: 1 mcg/kg/min (04/30/25 0900) epoprostenol (Veletri) 500 mcg in sodium chloride 0.9 % 100 mL (5 mcg/mL) infusion, 4 ng/kg/min, Last Rate: 4 ng/kg/min (04/30/25 09) [Held by provider] milrinone, 0.25 mcg/kg/min, Last Rate: Stopped (04/26/25 1112) norEPINEPHrine, 0.01-2 mcg/kg/min, Last Rate: Stopped (04/28/25 0530) sodium bicarbonate 150 mEq in sterile water 1,000 mL infusion, 200 mL/hr, Last Rate: 200 mL/hr (04/30/25 0900) vasopressin, 0.04 Units/min, Last Rate: Stopped (04/28/25 0340) PRN Meds: PRN medications: acetaminophen, albuterol, alteplase, glucose OR dextrose 50 % in water (D50W), guaiFENesin, heparin (porcine), ipratropium- albuteroL, melatonin, naloxone OR naloxone OR naloxone, ondansetron ODT OR ondansetron, simethicone, sodium chloride Outpatient Medications: Medication Documentation Review Audit Reviewed by Karrie Garza RN (Registered Nurse) on 04/19/25 at 1111 Medication Order Taking? Sig Documenting Provider Last Dose Status albuterol 90 mcg/actuation inhaler [id number] Inhale 1 puff 2 times daily. Historical ProviderMD Active allopurinol (Zyloprim) 300 mg tablet [id number] Yes Take 300 mg by mouth in the morning. German ProviderMD 04/18/2025 Morning Active amoxicillin (Amoxil) 500 mg tablet [id number] No Take 4 tablets (2,000 mg) by mouth 1 (one) time if needed (30-60 minute prior to dental procedures) for up to 20 doses. Patient not taking: Reported on 04/19/2025 Hay William MD Unknown Active aspirin 81 mg chewable tablet [id number] Yes Chew 1 tablet (81 mg) with breakfast. Hay William MD 04/18/2025 Morning Active atorvastatin (Lipitor) 40 mg tablet [id number] Yes Take 1 tablet (40 mg) by mouth at bedtime. Hay William MD 04/18/2025 Bedtime Active clopidogrel (Plavix) 75 mg tablet [id number] Yes Take 1 tablet (75 mg) by mouth in the morning. Hay William MD 04/18/2025 Morning Active dapagliflozin propanediol (Farxiga) 10 mg [id number] Yes Take 1 tablet (10 mg) by mouth once daily asdirected. Shania Chauhan CNP 04/18/2025 Morning Active Dupixent Syringe 300 mg/2 mL syringe injection [id number] No Inject 300 mg under the skin every 14 (fourteen) days. Historical ProviderMD 04/07/2025 Active fluticasone (Flonase) 50 mcg/actuation nasal spray [id number] Yes Administer 1 spray into each nostril two times daily. Shake gently. Before first use, prime pump. After use, clean tip and replace cap.German ProviderMD 04/18/2025 Bedtime Active fluticasone propion-salmeteroL (Advair Diskus) 500-50 mcg/dose diskus inhaler [id number] Yes Inhale 1puff two times daily. Historical ProviderMD 04/18/2025 Bedtime Active metoprolol succinate XL (Toprol-XL) 50 mg 24 hr tablet [id number] Yes Take 1 tablet (50 mg) by mouth once daily as directed. Do not crush or chew. Hay William MD 04/18/2025 Morning Active sacubitril-valsartan (Entresto) 97-103 mg tablet [id number] Yes Take 1 tablet by mouth two times daily. Hay William MD 04/18/2025 Bedtime Active spironolactone (Aldactone) 25 mg tablet [id number] Yes Take 1 tablet (25 mg) by mouth in the morning.Hay William MD 04/18/2025 Morning Active Labs: I have reviewed the patient's most recent labs as listed below: Chemistry: Lab Results Component Value Date NA 134 (L) 04/30/2025 K 3.5 04/30/2025 CL 94 (L) 04/30/2025 CO2 35 (H) 04/30/2025 ANIONGAP 9 04/30/2025 BUN 16 04/30/2025 CREATININE 1.21 04/30/2025 EGFR 64.8 04/30/2025 CALCIUM 8.0 (L) 04/30/2025 MG 2.0 04/30/2025 PHOS 1.8 (L) 04/30/2025 ALBUMIN 3.2 (L) 04/30/2025 PROT 5.6 (L) 04/30/2025 AST 119 (H) 04/30/2025 ALT 211 (H) 04/30/2025 BILITOT 0.8 04/30/2025 ALKPHOS 54 04/30/2025 Hematology & Iron studies: Lab Results Component Value Date WBC 8.77 04/30/2025 HGB 8.2 (L) 04/30/2025 HCT 23.9 (L) 04/30/2025 MCV 92.6 04/30/2025 PLT 143 (L) 04/30/2025 IRON 33 (L) 04/29/2025 TIBC 214 (L) 04/29/2025 UIBC 181.0 04/29/2025 IRONSAT 15 (L) 04/29/2025 FERRITIN 1,265.0 (H) 04/29/2025 Urine chemistry Lab Results Component Value Date PROTUR Negative 04/26/2025 CREATUR 83.0 04/26/2025 NAUR 92 04/26/2025 UREAUR 237 04/26/2025 Urinalysis & Microscopy: No results found for: COLORU , CLARITYU , SPECGRAVU , LOGAN , PROTUR , LEUKOCYTESU , NITRITEU , GLUCOSEU , KETONESU , BILIRUBINUR , UROBILINOGEN , BLOODU , RBCU , WBCU , SQUAMEPIU , MUCUSU , TRIPHOCRYU , CAOXALCRU , CAPHOSCRYU Urine Eosinophils: No components found for: UEOS Serology & Other labs: Lab Results Component Value Date ANATITER <1:40 04/19/2025 BNP: No results found for: BNP COLLIN: No results found for: COLLIN SPEP: Lab Results Component Value Date PROT 5.6 (L) 04/30/2025 UPEP: No components found for: LABPE C3: No results found for: C3 C4: No results found for: C4 MPO ANCA: No components found for: MPO PR3 ANCA: No components found for: PR3 Anti-GBM: No components found for: GBMABIGG Hep BsAg: No results found for: HEPBSAG Hep C AB: No results found for: HEPCAB Radiology: XR chest 1 view Narrative: XR CHEST 1 VIEW Clinical information: Cough. Comparison: 04/25/25. Impression: * Left chest wall pacemaker. Removal of right IJ catheter. No pneumothorax. Vascular congestion. New right basilar airspace opacification as well as some increased retrocardiac opacities. Layering right effusion. Pneumonia or aspiration are not excluded. Electronically signed: Virgilio Barillas MD. Assessment: Acute Kidney Injury, likely combination of ATN due to altered hemodynamics in setting of tamponade and contrast nephropathy Electrolyte Abnormalities (Hyponatremia, Hypokalemia) Metabolic acidosis Hypervolemia HFrEF- RHC suggestive of biventricular failure. EF 20%, RV systolic function severely reduced per echo 04/23/2025 Previously on IV milrinone, switched to dobutamine by Cardiology Atrial fibrillation s/p Watchman- on amiodarone Normocytic anemia Essential hypertension Plan: Patient continues to requires CRRT because of LINDA in setting of Cardiogenic Shock s/p Emergent Pericardiocentesis (eg, Remains anuric and in shock requiring pressors, severely acidotic in shock) On CRRT: Continuous venovenous hemodialysis [CVVHD] modality Vascular access: Dialysate: 4K bath and rate of 2 L/h (around 25 ml/kg/h) Blood flow: 200 mL/hr Ultrafiltration: To keep fluid balance even, then attempt a negative fluid balance if tolerated Prefilter IV fluids: Sodium Bicarb 150 mEq in Sterile Water at 200 mL/hr Post filter IV fluids: None at this time Adjust doses of medications to CRRT NOT for intermittent hemodialysis or CKD stage 5 -Will continue to monitor to see if patient continues to tolerate CRRT while off pressors. - s/p IV Aranesp 60 mcg for persistent anemia Monitor electrolytes: If serum potassium <4.0, IV KCl can be administered separately (post filter), please coordinate with nephrology If serum potassium >5.0, reduce dialysate potassium concentration by switching to lower K bath: eg, 2K from 3k. Please contact nephrology for proper adjustment Monitor phosphorus: May drop significantly and contribute to worsening respiratory muscle function.Replace aggressively Avoid nephrotoxic agents Thank you for the consultation. Please do not hesitate to contact us for any questions/concerns. Wewill continue to follow along with you. Igor Greene MD PGY 2 family independence case manager [facility] nephrology Cosigned by Karina Amaya MD at 04/30/2025 6:46 PM EDT Associated attestation - Karina Amaya MD - 04/30/2025 6:46 PM EDT By using the attestations below, the signing clinician agrees that I have read and verify that thedocumentation has been personally reviewed by me and ensure that the documentation accurately reflects the encounter. GC: I personally saw this patient on the day of the encounter, performed the gonzáles portion(s) of the service and participated in the management and confirm the resident's documentation. Please note there may be an additional personal documentation from me. Additional Comments: Continue CRRT today and monitor UOP. He is currently off pressors, BP still onlow side and will not tolerate HD. * Felicita Mooney MD - 04/30/2025 8:23 AM EDT Images from the original note were not included. Cardiology Progress Note Cardiogenic shock Subjective Kristy Doherty is a 69 y.o. male with significant medical history of hypertension, paroxysmal atrial fibrillation s/p Watchman 02/06/2025, chronic HFrEf (25-30%) s/p ICD 08/2022, and CAD who presented to the hospital for chest pain. Patient reports having substernal chest pain, radiating to his back and neck since the prior evening. Patient reports that his blood pressure has been running in the low 90s over 70s over the past couple of weeks. Denies any recent fever or chills/cough. Patient reports being compliant with all his medications. Subjective: No acute overnight events. I saw and evaluated the patient at bedside this morning. He is currentlyhemodynamically stable in no acute distress. Blood pressure at 112/70-currently on dobutamine 1. Hedoes not have any lower extremity edema. No rales. No complaints this morning Objective: Patient Vitals for the past 24 hrs: BP Temp Temp src Pulse Resp SpO2 Weight 04/30/25 0800 (!) 115/92 36.3 ??C (97.3 ??F) Axillary 90 19 98 % -- 04/30/25 0700 -- 36.3 ??C (97.3 ??F) -- 85 17 93 % -- 04/30/25 0600 -- 36.2 ??C (97.2 ??F) -- 91 (!) 27 93 % -- 04/30/25 0530 94/74 36.3 ??C (97.3 ??F) -- 90 19 96 % -- 04/30/25 0500 110/71 36.2 ??C (97.2 ??F) -- 86 12 94 % 80.9 kg (178 lb 5.6 oz) 04/30/25 0400 122/74 36.2 ??C (97.2 ??F) -- 88 16 95 % -- 04/30/25 0300 117/77 36.3 ??C (97.3 ??F) -- 87 18 96 % -- 04/30/25 0200 119/75 36.5 ??C (97.7 ??F) -- 88 19 94 % -- 04/30/25 0100 114/73 36.4 ??C (97.5 ??F) -- 87 18 96 % -- 04/30/25 0000 124/84 36.3 ??C (97.3 ??F) -- 89 21 93 % -- 04/29/25 2300 114/78 36.2 ??C (97.2 ??F) -- 89 17 97 % -- 04/29/25 2200 121/74 36.3 ??C (97.3 ??F) -- 88 21 98 % -- 04/29/25 2100 125/86 36.1 ??C (97 ??F) -- 91 16 98 % -- 04/29/25 2000 114/74 36.2 ??C (97.2 ??F) -- 86 19 99 % -- 04/29/258 -- -- -- 84 17 97 % -- 04/29/25 1900 103/72 36.3 ??C (97.3 ??F) -- 88 16 91 % -- 04/29/25 1800 104/58 36.2 ??C (97.2 ??F) Axillary 83 13 95 % -- 04/29/25 1700 87/68 36.2 ??C (97.2 ??F) Temporal 86 12 97 % -- 04/29/25 1600 106/69 36.1 ??C (97 ??F) -- 85 21 97 % -- 04/29/25 1508 109/68 36.1 ??C (97 ??F) -- 85 21 97 % -- 04/29/25 1500 -- 36.1 ??C (97 ??F) -- 83 19 99 % -- 04/29/25 1400 104/72 36 ??C (96.8 ??F) -- 80 23 96 % -- 04/29/25 1300 115/73 36 ??C (96.8 ??F) -- 88 23 95 % -- 04/29/25 1200 (!) 125/97 36.4 ??C (97.5 ??F) -- 90 21 95 % -- 04/29/25 1112 -- -- -- -- -- -- 82.8 kg (182 lb 8.7 oz) 04/29/25 1100 109/84 36.2 ??C (97.2 ??F) -- 90 -- 95 % -- 04/29/25 1000 96/62 36.3 ??C (97.3 ??F) -- 93 14 94 % -- 04/29/25 0900 107/73 36.1 ??C (97 ??F) -- 95 22 95 % -- Physical Examination: GENERAL: AOx3, in no acute distress. NECK: No JVD present. CARDIAC: RRR. No murmur, rubs, or gallops. RESPIRATORY: CTAB, no increased effort of breathing. ABDOMEN: Soft, nontender, nondistended. EXTREMITIES: No lower extremity edema, peripheral pulses are 2+ bilaterally. Relevant Lab Results Encounter Date: 04/19/25 ECG 12 lead Result Value Ventricular Rate 120 Atrial Rate 120 ME Interval 198 QRS DURATION 102 QT Interval 294 QTC CALCULATION(BAZETT) 415 P Welch 64 R-Welch 38 T Wave Welch 116 Impression Sinus tachycardia Low voltage QRS Septal infarct , age undetermined Abnormal ECG When compared with ECG of 19-APR-2025 18:24, Premature ventricular complexes are no longer Present Confirmed by Jeffy VERNON, MITESH Pruett ([id number]) on 04/23/2025 8:14:48 AM Lab Results Component Value Date TROPONINI 0.04 07/02/2022 Limited Echo (TTE) w/wo Limited Doppler, Color Flow, Imaging Agent, Strain, 3D, Bubble Study Result Date: 04/23/2025 1 1 [facility] Heart Station [address] [place] [address] [phone] (fax) Echocardiogram-[facility] Name: KRISTY DOHERTY Study Date: 04/23/2025 07:26 AM B/P: 90 mmHg/74 mmHg HR: 111 bpm Date of : 1955 Location: [facility] Height: 68 in. Age: 69 year(s) Patient Room: 3183 Weight: 177 lb. Gender: Male Patient Status: InPt BSA: 1.94 m2 Indication: Limited; pericardial effusion, S/P 35 mm Watchman device FLX, S/P Pericardiocentesis, H/O 25-30%, Pacemaker/AICD Examination: Limited Echo/Limited Doppler, Color flow imaging Image Quality: Good Patient Consent: Procedure explained to patient Conclusions Left Ventricle: Global left ventricular systolic function is severely reduced. The EF is 20 % visually. Regional wall motion abnormalities (see diagram). Right Ventricle: Severely reduced right ventricular systolic function. A pacemaker wire is seen in the right ventricle. Doppler studies suggest moderately elevated right sided pressures (elevated pulmonary pressure). Mitral Valve: Mild to moderate mitral regurgitation. Aortic Valve: Mild aortic valve regurgitation. Tricuspid Valve: Moderate tricuspid regurgitation. Overall Conclusions: Decrease in right ventricular systolic function and increase in tricuspid insufficiency when compared to previous study. Measurements Left Ventricle Label Value Normal Value LVEF visual 20 % Tricuspid Valve Label Value Normal Value RA Pressure 8 mmHg RVSP 49 mmHg TR Vmax 3.22 m/s Great Vessels Label Value Normal Value IVC 2 cm (1.2cm - 2.3cm) Valvular Assessment LVOT 0.7 - 1.1 m/sec Aortic Valve 1.0 - 1.7 m/sec Mitral Valve 0.6 - 1.3 m/sec Tricuspid Valve 0.3 - 0.7 m/sec Pulmonic Valve 0.6 - 0.9 m/sec Regurgitation Mild MildMod Moderate Findings Left Ventricle: Global left ventricular systolic function is severely reduced. The EF is 20 % visually. Regional wall motion abnormalities (see diagram). The basal anterior, basal anteroseptal, basal inferoseptal, basal inferior, basal inferolateral, basal anterolateral, mid inferoseptal, mid inferior and mid inferolateral left ventricular wall segments are hypokinetic. The mid anterior, mid anteroseptal, mid anterolateral, apical anterior, apical septal, apical inferior, apical lateral and apex left ventricular wall segments are akinetic. Right Ventricle: The right ventricular free wall is akinetic in the distaltwo- thirds. Severely reduced right ventricular systolic function. A pacemaker wire is seen in the right ventricle. Doppler studies suggest moderately elevated right sided pressures (elevated pulmonary pressure). Mitral Valve: The mitral valve is normal in mobility and thickness. Mild to moderate mitral regurgitation. Aortic Valve: The aortic valve opens well. Mildly sclerosed aortic valve cusps. Mild aortic valve regurgitation. Tricuspid Valve: Normal tricuspid valve. Moderate tricuspid regurgitation. Pulmonic Valve: Pulmonary valve not visualized. Great Vessels: IVC: The IVC is normal in size. There is no inspiratory collapse of the IVC. Pericardium: There is a minimal pericardial effusion. Procedure Staff Reading Group: [facility] Referring Physician: RUDY KING Property Consultant: June Brumfield RDCS, RVT, RN, BSN Ordering Physician: FANI DENNEY Wall Motion Scores -1 - hyperkinesia, 0 - not evaluated, 1 - normal, 2 - hypokinesia, 3 - akinesia, 4 - dyskinesia Transthoracic echo (TTE) limited Result Date: 04/20/2025 1 1 [facility] Heart Station [address] [place] [address] [phone] (fax) Echocardiogram-[facility] Name: KRISTY DOHERTY Study Date: 04/20/2025 01:28 PM B/P: 83 mmHg/58 mmHg HR: 96 bpm Date of : 1955 Location: [facility] Height: 68 in. Age: 69 year(s) Patient Room: [facility]3 Weight: 179 lb. Gender: Male Patient Status: InPt BSA: 1.95 m2 Indication: Limited; evaluate pericardial effusion, S/P 35 mm Watchman FLX, H/O EF 25 - 30 %, Pacemaker, Cardiomyopathy Examination: Limited Echo/Limited Doppler, Color flow imaging Image Quality: Good Patient Consent: Procedure explained to patient Conclusions Left Ventricle: Global left ventricular systolic function is severely reduced. The EF is 30 % visually. The septum is abnormal in its motion. Right Ventricle: Right ventricular systolic function appears normal. A pacemaker wire is seen in the right ventricle. Doppler studies suggest normal right sided pressures. Pericardium: No pericardial effusion. Measurements Left Ventricle Label Value Normal Value LVEF visual 30 %Tricuspid Valve Label Value Normal Value RA Pressure 3 mmHg RVSP 24 mmHg TR Vmax 2.29 m/s Great Vessels Label Value Normal Value IVC 1.1 cm (1.2cm - 2.3cm) Valvular Assessment LVOT 0.7 - 1.1 m/sec Aortic Valve 1.0 - 1.7 m/sec Mitral Valve 0.6 - 1.3 m/sec Tricuspid Valve 0.3 - 0.7 m/sec Pulmonic Valve 0.6 - 0.9 m/sec Regurgitation Trivial Trivial Trivial Findings Left Ventricle: Global left ventricular systolic function is severely reduced. The EF is 30 % visually. The septum is abnormal in its motion. All scored left ventricular wall segments are hypokinetic. Right Ventricle: Right ventricular systolic function appears normal. A pacemaker wire is seen in the right ventricle. Doppler studies suggest normal right sided pressures. Mitral Valve: The mitral valve is normal in mobility and thickness. Trivial mitral regurgitation. Aortic Valve: Mildly sclerosed aortic valve cusps. Trivial aortic valve regurgitation. Tricuspid Valve: Normal tricuspid valve. Trivial tricuspid regurgitation. Great Vessels: IVC: The IVC is normal in size. There is inspiratory collapse of the IVC. Pericardium: No pericardial effusion. Procedure Staff Reading Group: [facility] Referring Physician:RUDY KING Property Consultant: June Brumfield RDCS, RVT, RN, BSN Ordering Physician: VENU SAMANIEGO Wall Motion Scores -1 - hyperkinesia, 0 - not evaluated, 1 - normal, 2 - hypokinesia, 3 - akinesia, 4 - dyskinesia Transthoracic echo (TTE) limited Result Date: 04/19/2025 1 1 [facility] Heart Station [address] [place] [address] [phone] (fax) Echocardiogram-[facility] Name: KRISTY DOHERTY Study Date: 04/19/2025 02:13 PM B/P: / HR: Date of : 1955 Location: [facility] Height: 68 in. Age: 69 year(s) Patient Room: [facility]3 Weight: 182 lb. Gender: Male Patient Status: InPt BSA: 1.96 m2 Indication: pericardialeffusion, h/o 35mm Watchman FLX Examination: Limited Echo Image Quality: Fair Findings Pericardium: Moderate pericardial effusion baseline. Post pericardiocentesis there is minimal pericardial effusion. Procedure Staff Reading Group: [facility] Referring Physician: RUDY KING Property Consultant: SAMI Starr, RDCS Ordering Physician: VENU SAMANIEGO Complete Echo (TTE) w/wo Imaging Agent, Strain, 3D, Bubble Study Result Date: 04/19/2025 1 1 [facility] Heart Station [address] [place] [address] [phone] (fax) Echocardiogram-[facility] Name: KRISTY DOHERTY Study Date: 04/19/2025 12:46 PM B/P: 97 mmHg/71 mmHg HR: Date of : 1955 Location: [facility] Height: 68 in. Age: 69 year(s) Patient Room: 318 Weight: 182 lb. Gender: Male Patient Status: InPt BSA: 1.96 m2 Indication: Chest Pain, s/p 35mm Watchman FLX Examination: Echocardiogram (Complete) ImageQuality: Fair Patient Consent: Procedure explained to patient Conclusions Left Ventricle: The left ventricle is normal size. Global left ventricular systolic function is normal. The EF is 60 % visually. Left ventricular wall thickness is normal. No regional wall motion abnormality. Right Ventricle:The right ventricle appears normal in size. Right ventricular systolic function appears normal. Doppler studies suggest normal right sided pressures. Left Atrium: Watchman device visualized . The left atrium appears normal in size. Aortic Valve: Mild aortic valve regurgitation. Tricuspid Valve: Mild tricuspid regurgitation. Pericardium: There is a moderate circumfrential pericardial effusion. There is also, significant mitral inflow variations consistent with early tamponade physiology. Measurements Left Ventricle Label Value Normal Value LVOT VTI 11.1 cm (18cm - 22cm) LVOT PGmax 3 mmHg LVEF visual 60 % LVOT PGmean 1 mmHg Right Ventricle Label Value Normal Value TAPSE 0.97 cm Aortic Valve Label Value Normal Value AV DVI 0.5 AV VTI 23.1 cm Mitral Valve Label Value Normal Value MV E Vmax 0.54 m/s MV A Vmax 0.79 m/s MV E/A 0.68 MV E/E' lateral 7.6 MV E' lateral 0.07 m/s Tricuspid Valve Label Value Normal Value RA Pressure 3 mmHg RVSP 30 mmHg TR Vmax 2.59 m/s Valvular Assessment LVOT 0.7 - 1.1 m/sec Aortic Valve 1.0 - 1.7 m/sec Mitral Valve 0.6 - 1.3 m/sec Tricuspid Valve 0.3 - 0.7 m/sec Pulmonic Valve 0.6 - 0.9 m/sec Regurgitation Mild No Mild No Max Velocity 0.81 m/sec 1.62 m/s 0.54m/sec 1.02 m/s Max Gradient 10.00 mmHg 4.00 mmHg Mean Gradient 5.00 mmHg Findings Left Ventricle: The left ventricle is normal size. Global left ventricular systolic function is normal. The EF is 60 % visually. Left ventricular wall thickness is normal. No regional wall motion abnormality. Right Ventricle: The right ventricle appears normal in size. Right ventricular systolic function appears normal. Doppler studies suggest normal right sided pressures. Left Atrium: Watchman device visualized .The left atrium appears normal in size. Right Atrium: The right atrium appears normal in size. Mitral Valve: The mitral valve is normal in mobility and thickness. No mitral regurgitation. Aortic Valve: Focal aortic cusp thickening is noted. Mild aortic valve regurgitation. Tricuspid Valve: Normal tricuspid valve. Mild tricuspid regurgitation. Pulmonic Valve: Normal pulmonary valve. No pulmonary regurgitation. Aorta: The aortic root exhibits normal size. Great Vessels: IVC: Normal size and course of the IVC. Pericardium: There is a moderate circumfrential pericardial effusion. There is also, significant mitral inflow variations consistent with early tamponade physiology. Procedure Staff Reading Group: [facility] Property Consultant: Bryanna Cazares RDCS Ordering Physician: HAKAN Canchola signed by MD Mitesh Vernon on 04/19/2025 at 01:44 PM Limited Transthoracic Echo (TTE) w/wo Contrast, Color Flow, Imaging Agent, Strain, 3D, Bubble Study Result Date: 02/07/2025 1 1 [facility] Heart Station [address] [place] [address] [phone] (fax) Echocardiogram-[facility] Name: KRISTY DOHERTY Study Date: 02/07/2025 08:02 AM B/P: 118 mmHg/85 mmHg HR: 63 bpm Date of : 1955 Location: [facility] Height: 68 in. Age: 69 year(s) Patient Room: 3176 Weight: 186 lb. Gender: Male Patient Status: InPt BSA: 1.98 m2 Indication: Atrial Fibrillation, Pacemaker, s/p 35mm Watchman FLX Examination: Limited Echo, Color flow imaging, Lumason Contrast Image Quality: Fair Patient Consent: Procedure explained to patient Exam Details Contrast: I.V. dose of Lumason Conclusions Left Ventricle: The left ventricle is [...] borders. Well seated 35mm Watchman FLX PRO. Measurements Left VentricleLabel Value Normal Value LVDd, 2D 5.86 cm (4.2cm - 5.9cm) LVDs, 2D 5.21 cm (2.1cm - 4cm) IVSd, 2D 0.91 cm (0.6cm - 1.1cm) LVPWd, 2D 1.06 cm (0.6cm - 1cm) LV Mass, 2D ASE 232.58 g LV Mass Index, 2D ASE 117.5 g/m?? (50g/m?? - 102.4g/m??) RWT, MM 0.36 (0 - 0.42) LVSVI, 2D 20.7 ml/m2 Aorta Label Value Normal Value AoRoot, 2D 3.4 cm (1.4cm - 3.8cm) Valvular Assessment LVOT 0.7 - 1.1 m/sec Aortic Valve1.0 - 1.7 m/sec Mitral Valve 0.6 - 1.3 m/sec Tricuspid Valve 0.3 - 0.7 m/sec Pulmonic Valve 0.6 - 0.9 m/sec Regurgitation Mild trivMil Findings Left Ventricle: The left ventricle is normal size. Global left ventricular systolic function is severely reduced. EF range is estimated at 25 % -30 %. Leftventricular wall thickness is increased. Diffuse global hypokinesis. Right Ventricle: The right ventricle is normal in size. Normal right ventricular systolic function. A pacemaker wire is seen in the right atrium and right ventricle. Left Atrium: The left atrium is normal in size. Right Atrium: The right atrium is normal in size. Mitral Valve: There is nonspecific thickening of the mitral valve leaflet. Trvial to mild mitral regurgitation. Aortic Valve: Focal aortic cusp thickening is noted. Mild aortic valve regurgitation. Tricuspid Valve: Normal tricuspid valve. Pulmonic Valve: Normal pulmonary valve. Aorta: The aortic root exhibits normal size. Great Vessels: IVC: The IVC is normal in size. Pericardium: No pericardial effusion. Procedure Staff Reading Group: [facility] Referring Physician: RUDY KING Property Consultant: SAMI Starr, RDCS Ordering Physician: CHUCK FUNEZ Transesophageal echo (MASON) Result Date: 12/01/2024 1 [facility] Heart Station [address] [place] [address] [phone] (fax) Transesophageal Echocardiogram-[facility] Name: KRISTY DOHERTY Study Date: 12/01/2024 12:00 PM B/P: 134 mmHg/87 mmHg HR: 80 bpm Date of : 1955 Location: [facility] Height: 68 in. Age: 69 year(s) Patient Room: Weight: 194 lb. Gender: Male PatientStatus: OutPt BSA: 2.02 m2 Indication: Atrial Fibrillation, Pre-Watchman Examination: MASON, Color flow imaging Image Quality: Excellent Patient Consent: Informed, written consent was obtained for the procedure Exam Location: A MASON was performed in the [facility] without complications Anesthesia Pharyngeal anesthesia with viscous Lidocaine Conclusions Left Ventricle: The left ventricle is normal size. Global left ventricular systolic function is severely reduced. EF range is estimated at 25 % -30 %. Left ventricular wall thickness is normal. Diffuse global hypokinesis. Right Ventricle: The right ventricle appears normal in size. Normal right ventricular systolic function. Left Atrium: The left a trium is severely enlarged. Left Atrium Appendage: The left atrial appendage is monolobular. Normalleft atrial appendage, no thrombus seen. ROBB measutments [...] 50 micrograms Valvular Assessment LVOT 0.7 - 1.1m/sec Aortic Valve 1.0 - 1.7 m/sec Mitral Valve 0.6 - 1.3 m/sec Tricuspid Valve 0.3 - 0.7 m/sec Pulm onic Valve 0.6 - 0.9 m/sec Regurgitation Mod [...] atrium is severely enlarged. Left Atrium Appendage: Theleft atrial appendage is normal. The left atrial [...] is a minimal pericardial effusion. The Attending Ph ysician was present and personally reviewed the examination with the fellow Procedure Staff ReadingGroup: [facility] Referring Physician: RUDY KING Property Consultant: DORIAN Walker Ordering Physician: Hay William MD No nuclear medicine results found for the past 12 months Relevant Imaging Results XR chest 1 view Narrative: XR CHEST 1 VIEW Clinical information: Cough. Comparison: 04/25/25. Impression: * Left chest wall pacemaker. Removal of right IJ catheter. No pneumothorax. Vascular congestion. New right basilar airspace opacification as well as some increased retrocardiac opacities. Layering right effusion. Pneumonia or aspiration are not excluded. Electronically signed: Virgilio Barillas MD. Assessment: Cardiogenic shock, cardiac index 1.3 L/min/m2, likely secondary to acute heart failure exacerbation Acute right ventricular failure Melanie 0.72 < 1 suggestive of significant RV failure RHC suggestive of biventricular failure Acute on chronic heart failure with reduced ejection fraction s/p ICD placement, NYHA II/III 04/23/2025 echo with EF 20%, severely reduced RV systolic function, mild-moderate MR, mild AV regurg, mild TR, elevated RVSP 49 Non-oliguric acute kidney injury, worsening with decreased urinary output Likely underlying cardiorenal syndrome: type1 Moderate circumferential pericardial effusion s/p RHC and pericardiocentesis (300cc removal) with drain placement on 04/19/25 - unclear etiology, cannot rule out acute pericarditis Pericardial drain removed 04/20 after resolution of effusion on 04/20 echo Repeat echo limited 04/23/2025 with EF 20%, severely reduced RV systolic function, and no inspiratory collapse of IVC (new findings), and minimal pericardial effusion TTE 04/30: EF 20%, mild MR, AR, moderate TR, no pericardial effusion Frequent PVC's and runs of NSVT on telemetry, on amiodarone gtt Paroxysmal A-fib [id number] (heart failure, hypertension, age 65-74) s/p Watchman procedure on 02/06/2025 (due to prior bleeding with eliquis) Nonobstructive coronary artery disease Hyperlipidemia (unspecified) on lipitor 40 Plan: Ok to stop dobutamine Hold GDMT at this time - will re-evaluate to see if can restart on 05/01/25 CRRT per nephrology team Resume colchicine 0.6 mg as dialysis has been initiated. Stopped amiodarone drip on 04/29, will monitor Aggressive electrolyte replacement to maintain potassium > 4 and magnesium > 2 Continue Cardiac medications as tolerated (currently limited by hypotension) Lipitor 40 mg, aspirin 81 mg & Plavix 75 mg Holding: Toprol-XL 12.5 mg daily, Farxiga 10 mg daily, Entresto 97/103 mg b.I.d. & Aldactone 25mg. Cardiology will continue to follow. Please call with any questions. Felicita Mooney MD Internal medicine resident, PGY-2 [facility] Cosigned by Mitesh Vernon MD at 04/30/2025 3:11 PM EDT Associated attestation - Mitesh Vernon MD - 04/30/2025 3:11 PM EDT By using the attestations below, the signing clinician agrees that I have read and verify that thedocumentation has been personally reviewed by me and ensure that the documentation accurately reflects the encounter. GC: I personally saw this patient on the day of the encounter with Dr. Vivar, Dr. Franco, and Dr. Morales, performed the gonzáles portion(s) of the service and participated in the management and confirm theresident's documentation. Please note there may be an additional personal documentation from me. * Chely Garcia, STORM CHASER - 04/30/2025 8:14 AM EDT Respiratory Progress Note Patient Name: Kristy Doherty : 1955 Today's Date: 04/30/2025 XR chest 1 view Result Date: 04/29/2025 * Left chest wall pacemaker. Removal of right IJ catheter. No pneumothorax. Vascular congestion. New right basilar airspace opacification as well as some increased retrocardiac opacities. Layering right effusion. Pneumonia or aspiration are not excluded. Electronically signed: Virgilio Barillas MD. The findings from the last RT Protocol Assessment were as follows: Bronchodilator Assessment Grid RR: Less than 20 (Level 2) Dyspnea: No SOB Breath Sounds: Diminished and/or faint wheezes Resp History: Diagnosis pulmonary disease Oxygen to keep SpO2 >/= 92%: Room air or baseline O2 Peak Flow: N/A Level: Level 2 Aerosolized bronchodilator medication orders and frequency have been revised according to the Respiratory Care Clinical Practice Guidelines. Patient to remain on home therapy: As at home reconcile order with home meds if pulmonary status isstable. Level 1: Every 4 hours PRN for wheezing via nebulizer. Level 2: TID daily and Q4 PRN for wheezing. Level 3: QID and Q4 PRN as needed for wheezing. Level 4: Every 4 hours and as needed for wheezing. Level 5: Stat nebulizer time one and contact prescriber for frequency change. Note - The frequency level of therapy will not be lower than the frequency of home therapy as listed on the medication reconciliation record unless specifically ordered by the prescriber. Identify care plan and goals of therapy and perform ongoing clinical assessment to determine appropriateness, benefit, and improvement during the course of therapy. Patient will be re-evaluated every24 hours. Chely Garcia CRT 04/30/2025 * Kurtis Gonzalez MD - 04/29/2025 8:48 AM EDT Images from the original note were not included. Nephrology Progress Note Patient : Kristy Doherty; 69 y.o. Location: 3217/3217-01 Attending: Pepe Anthony MD Admit Date: 04/19/2025 Hospital Day: 10 Reason for Consult: Severe LINDA in setting of Cardiogenic Shock Subjective: History of present illness: Kristy Doherty is a 69 y.o. male with PMHx significant for CAD, Atrial fibrillation s/p Watchman procedure, who was transferred from [place] with initial chief complaint of chest and back pain. The patient was noted to have a percardial effusion and echocardiogram and was taken for emergent pericar diocentesis with RHC and LHC. He had recurrence of his effusion with repeat echo demonstrating reduced RV function, RHC with elevated wedge pressures. Patient is seen and examined in MICU. He is currently receiving lasix 40 mg in addition to 40 received earlier. Plan to give 80 mg BID additional. Urine output this far has been minimal. He has a lanier catheter in place. Denies acute complaints including chest pain and shortness of breath. Interval history: 04/29/25 Patient remains on CRRT, had clotting issues yesterday so Flolan was started as pre filter and it was titrated up to allow for prolonged dialysate filter life Has remained relatively hemodynamically stable since starting CRRT Only has produced 250 mL of urine since yesterday Objective: Input/Output: Intake/Output Summary (Last 24 hours) at 04/29/2025 0848 Last data filed at 04/29/2025 0800 Gross per 24 hour Intake 5237.29 ml Output 7090 ml Net -1852.71 ml I/O last 3 completed shifts: In: 8572.1 (100.5 mL/kg) [P.O.:720; I.V.:7202.1 (84.4 mL/kg); IV Piggyback:650] Out: 8445 (99 mL/kg) [Urine:250 (0.1 mL/kg/hr); Other:8195] Weight: 85.3 kg Vital signs: Temperature: Temp: 36.1 ??C (97 ??F) TMax: Temp (24hrs), Av ??C (96.8 ??F), Min:35.3 ??C (95.5 ??F), Max:36.3 ??C (97.3 ??F) Respirations: Resp: 20 Pulse: Heart Rate: 85 BP: BP: 77/50 BP Range: No data recorded. No data recorded. Wt Readings from Last 3 Encounters: 04/29/25 85.3 kg (188 lb 0.8 oz) 04/03/25 84.8 kg (187 lb) 02/26/25 85.7 kg (189 lb) Physical Exam Constitutional: General: He is awake. He is not in acute distress. Cardiovascular: Rate and Rhythm: Normal rate. Rhythm irregular. Pulmonary: Effort: Pulmonary effort is normal. Breath sounds: Normal breath sounds. Musculoskeletal: Right lower leg: Edema present. Left lower leg: Edema present. Neurological: General: No focal deficit present. Mental Status: He is alert. Psychiatric: Attention and Perception: Attention normal. Mood and Affect: Mood normal. Speech: Speech normal. Behavior: Behavior is cooperative. Current Medications: Scheduled Meds: allopurinol, 300 mg, oral, Daily aspirin, 81 mg, oral, Daily with breakfast atorvastatin, 40 mg, oral, Nightly clopidogrel, 75 mg, oral, Daily [Held by provider] colchicine, 0.6 mg, oral, BID [Held by provider] dapagliflozin propanediol, 10 mg, oral, Once Daily enoxaparin, 40 mg, subcutaneous, Daily [Held by provider] furosemide, 80 mg, intravenous, q12h hydrocortisone sodium succinate, 50 mg, intravenous, q12h ABILIO insulin lispro, 0-5 Units, subcutaneous, TID with meals And insulin lispro, 0-4 Units, subcutaneous, Nightly ipratropium-albuteroL, 3 mL, nebulization, q6h while awake [Held by provider] metoprolol succinate XL, 12.5 mg, oral, Daily mometasone-formoterol, 2 puff, inhalation, BID sennosides-docusate sodium, 1 tablet, oral, BID sodium bicarbonate, 1,300 mg, oral, BID [Held by provider] spironolactone, 25 mg, oral, Daily Continuous Infusions: amiodarone, 0.5 mg/min, Last Rate: 0.5 mg/min (04/29/25 07) dialysate 3K with bicarb and calcium 5000 mL, 2,000 mL/hr, Last Rate: 2,000 mL/hr (04/29/25 0759) DOBUTamine, 2.5-15 mcg/kg/min, Last Rate: 2 mcg/kg/min (04/29/25 07) epoprostenol (Veletri) 500 mcg in sodium chloride 0.9 % 100 mL (5 mcg/mL) infusion, 4 ng/kg/min, Last Rate: 4 ng/kg/min (04/29/25 07) [Held by provider] milrinone, 0.25 mcg/kg/min, Last Rate: Stopped (04/26/25 1112) norEPINEPHrine, 0.01-2 mcg/kg/min, Last Rate: Stopped (04/28/25 0530) sodium bicarbonate 150 mEq in sterile water 1,000 mL infusion, 200 mL/hr, Last Rate: 200 mL/hr (04/29/25 0700) vasopressin, 0.04 Units/min, Last Rate: Stopped (04/28/25 0340) PRN Meds: PRN medications: acetaminophen, albuterol, alteplase, glucose OR dextrose 50 % in water (D50W), heparin (porcine), ipratropium-albuteroL, melatonin, naloxone OR naloxone OR naloxone, ondansetron ODT OR ondansetron, simethicone Outpatient Medications: Medication Documentation Review Audit Reviewed by Karrie Garza RN (Registered Nurse) on 04/19/25 at 1111 Medication Order Taking? Sig Documenting Provider Last Dose Status albuterol 90 mcg/actuation inhaler [id number] Inhale 1 puff 2 times daily. Historical ProviderMD Active allopurinol (Zyloprim) 300 mg tablet [id number] Yes Take 300 mg by mouth in the morning. Historical ProviderMD 04/18/2025 Morning Active amoxicillin (Amoxil) 500 mg tablet [id number] No Take 4 tablets (2,000 mg) by mouth 1 (one) time if needed (30-60 minute prior to dental procedures) for up to 20 doses. Patient not taking: Reported on 04/19/2025 Hay William MD Unknown Active aspirin 81 mg chewable tablet [id number] Yes Chew 1 tablet (81 mg) with breakfast. Hay William MD 04/18/2025 Morning Active atorvastatin (Lipitor) 40 mg tablet [id number] Yes Take 1 tablet (40 mg) by mouth at bedtime. Hay William MD 04/18/2025 Bedtime Active clopidogrel (Plavix) 75 mg tablet [id number] Yes Take 1 tablet (75 mg) by mouth in the morning. Hay William MD 04/18/2025 Morning Active dapagliflozin propanediol (Farxiga) 10 mg [id number] Yes Take 1 tablet (10 mg) by mouth once daily asdirected. Shania Chauhan CNP 04/18/2025 Morning Active Dupixent Syringe 300 mg/2 mL syringe injection [id number] No Inject 300 mg under the skin every 14 (fourteen) days. Historical ProviderMD 04/07/2025 Active fluticasone (Flonase) 50 mcg/actuation nasal spray [id number] Yes Administer 1 spray into each nostril two times daily. Shake gently. Before first use, prime pump. After use, clean tip and replace cap.German ProviderMD 04/18/2025 Bedtime Active fluticasone propion-salmeteroL (Advair Diskus) 500-50 mcg/dose diskus inhaler [id number] Yes Inhale 1puff two times daily. Historical Provider, 04/18/2025 Bedtime Active metoprolol succinate XL (Toprol-XL) 50 mg 24 hr tablet [id number] Yes Take 1 tablet (50 mg) by mouth once daily as directed. Do not crush or chew. Hay William MD 04/18/2025 Morning Active sacubitril-valsartan (Entresto) 97-103 mg tablet [id number] Yes Take 1 tablet by mouth two times daily. Hay William MD 04/18/2025 Bedtime Active spironolactone (Aldactone) 25 mg tablet [id number] Yes Take 1 tablet (25 mg) by mouth in the morning.Hay William MD 04/18/2025 Morning Active Labs: I have reviewed the patient's most recent labs as listed below: Chemistry: Lab Results Component Value Date NA 133 (L) 04/29/2025 K 3.6 04/29/2025 CL 95 (L) 04/29/2025 CO2 32 (H) 04/29/2025 ANIONGAP 10 04/29/2025 BUN 25 04/29/2025 CREATININE 1.72 (H) 04/29/2025 EGFR 42.5 (L) 04/29/2025 CALCIUM 7.8 (L) 04/29/2025 MG 2.2 04/29/2025 PHOS 2.4 (L) 04/29/2025 ALBUMIN 3.1 (L) 04/29/2025 PROT 5.5 (L) 04/29/2025 AST 252 (H) 04/29/2025 ALT 267 (H) 04/29/2025 BILITOT 0.7 04/29/2025 ALKPHOS 56 04/29/2025 Hematology & Iron studies: Lab Results Component Value Date WBC 9.76 04/29/2025 HGB 8.3 (L) 04/29/2025 HCT 23.4 (L) 04/29/2025 MCV 90.3 04/29/2025 PLT 133 (L) 04/29/2025 Urine chemistry Lab Results Component Value Date PROTUR Negative 04/26/2025 CREATUR 83.0 04/26/2025 NAUR 92 04/26/2025 UREAUR 237 04/26/2025 Urinalysis & Microscopy: No results found for: COLORU , CLARITYU , SPECGRAVU , LOGAN , PROTUR , LEUKOCYTESU , NITRITEU , GLUCOSEU , KETONESU , BILIRUBINUR , UROBILINOGEN , BLOODU , RBCU , WBCU , SQUAMEPIU , MUCUSU , TRIPHOCRYU , CAOXALCRU , CAPHOSCRYU Urine Eosinophils: No components found for: UEOS Serology & Other labs: Lab Results Component Value Date ANATITER <1:40 04/19/2025 BNP: No results found for: BNP COLLIN: No results found for: COLLIN SPEP: Lab Results Component Value Date PROT 5.5 (L) 04/29/2025 UPEP: No components found for: LABPE C3: No results found for: C3 C4: No results found for: C4 MPO ANCA: No components found for: MPO PR3 ANCA: No components found for: PR3 Anti-GBM: No components found for: GBMABIGG Hep BsAg: No results found for: HEPBSAG Hep C AB: No results found for: HEPCAB Radiology: XR abdomen 1 view Narrative: XR ABDOMEN 1 VIEW 04/28/2025 12:37 AM CLINICAL INDICATIONS: Abdominal distention COMPARISON: None FINDINGS: Nonobstructive bowel gas pattern. Degenerative changes of the bilateral hips and SI joints. Seminal vesicle/vas deferens calcifications. Left femoral hemodialysis catheter noted. Combined automatic implantable cardiac defibrillator/pacing device leads. No acute abnormality within the visualized chest. Impression: * Nonobstructive bowel gas pattern. Approved by:Phill Orellana 1:10 AM. I, El Gomes,have reviewed the image(s) and agree with the findings in this report. Electronically signed: El Gomes. Assessment: Acute Kidney Injury, likely combination of ATN due to altered hemodynamics in setting of tamponade and contrast nephropathy Electrolyte Abnormalities (Hyponatremia, Hypokalemia) Metabolic acidosis Hypervolemia HFrEF- RHC suggestive of biventricular failure. EF 20%, RV systolic function severely reduced per echo 04/23/2025 Previously on IV milrinone, switched to dobutamine by Cardiology Atrial fibrillation s/p Watchman- on amiodarone Normocytic anemia Essential hypertension Plan: Patient continues to requires CRRT because of LINDA in setting of Cardiogenic Shock s/p Emergent Pericardiocentesis (eg, Remains anuric and in shock requiring pressors, severely acidotic in shock) On CRRT: Continuous venovenous hemodialysis [CVVHD] modality Vascular access: Dialysate: 4K bath and rate of 2 L/h (around 25 ml/kg/h) Blood flow: 200 mL/hr Ultrafiltration: To keep fluid balance even, then attempt a negative fluid balance if tolerated Prefilter IV fluids: Sodium Bicarb 150 mEq in Sterile Water at 200 mL/hr Post filter IV fluids: None at this time Adjust doses of medications to CRRT NOT for intermittent hemodialysis or CKD stage 5 Monitor electrolytes: If serum potassium <4.0, IV KCl can be administered separately (post filter), please coordinate with nephrology If serum potassium >5.0, reduce dialysate potassium concentration by switching to lower K bath: eg, 2K from 3k. Please contact nephrology for proper adjustment Monitor phosphorus: May drop significantly and contribute to worsening respiratory muscle function.Replace aggressively Avoid nephrotoxic agents Thank you for the consultation. Please do not hesitate to contact us for any questions/concerns. Abrilll continue to follow along with you. - Will also order complete Iron Studies - Also ordering IV Aranesp 60 mcg for persistent anemia - Will stop oral sodium bicarbonate since pre filter fluid is also bicarbonate and do not want to cause alkalosis Kurtis Gonzalez MD PGY-4 Nephrology Fellow Cosigned by Zhen Feldman MD at 04/29/2025 9:37 PM EDT Associated attestation - Zhen Feldman MD - 04/29/2025 9:37 PM EDT By using the attestations below, the signing clinician agrees that I have read and verify that thedocumentation has been personally reviewed by me and ensure that the documentation accurately reflects the encounter. GC: I personally saw this patient on the day of the encounter, performed the gonzáles portion(s) of the service and participated in the management and confirm the resident's documentation. Please note there may be an additional personal documentation from me. Patient seen and examined today receiving CRRT / CVVHD * Darcy Alfredo RRT - 04/29/2025 8:16 AM EDT Respiratory Progress Note Patient Name: Kristy Doherty : 1955 Today's Date: 04/29/2025 No Chest X-ray results found for the past 24 hours The findings from the last RT Protocol Assessment were as follows: Bronchodilator Assessment Grid RR: Less than 20 (Level 1) Dyspnea: No SOB Breath Sounds: Diminished and/or faint wheezes Resp History: Diagnosis pulmonary disease Oxygen to keep SpO2 >/= 92%: Room air or baseline O2 Peak Flow: N/A Level: Level 1 Aerosolized bronchodilator medication orders and frequency have been revised according to the Respiratory Care Clinical Practice Guidelines. Patient to remain on home therapy: As at home reconcile order with home meds if pulmonary status isstable. Level 1: Every 4 hours PRN for wheezing via nebulizer. Level 2: TID daily and Q4 PRN for wheezing. Level 3: QID and Q4 PRN as needed for wheezing. Level 4: Every 4 hours and as needed for wheezing. Level 5: Stat nebulizer time one and contact prescriber for frequency change. Note - The frequency level of therapy will not be lower than the frequency of home therapy as listed on the medication reconciliation record unless specifically ordered by the prescriber. Identify care plan and goals of therapy and perform ongoing clinical assessment to determine appropriateness, benefit, and improvement during the course of therapy. Patient will be re-evaluated every24 hours. Darcy Alfredo RRT 04/29/2025 * Karsten Gage MD - 04/29/2025 7:50 AM EDT Images from the original note were not included. Medical ICU Progress Note Patient - Kristy Doherty Age - 69 y.o. - 1955 [facility] # - [id number] Date of Admission - 04/19/2025 10:46 AM HPI/Hospital Course Subjective Kristy Doherty is an 69 y.o. male who came from [place] with chest pain with radiation to neck andback. Past medical history of heart failure with reduced ejection fraction, hypertension, coronary artery disease, cardiomyopathy nonischemic (AICD placed), hyperlipidemia, atrial fibrillation statuspost Watchman , asthma. Patient presents from [place] with chest pain radiating to the neck and back. He states that chest pain started last night was a constant sharp pain all over his chest. He states that the pain radiated to his neck and back rated pain a 5 out of 10. Patient stated when he was on his right side pain in his neck improved. At outside hospital patient was found to have small pericardial effusion on CT as well as potential atelectasis versus pneumonia. He also had a sodium of 123. His troponins were downtrending and from 11.5-10.5. Patient was also hypotensive at outside hospital which he states he has been hypotensive now for the past 2 weeks. At bedside patientstates that chest pain has improved and is now a 2 out of 10. He still states that chest pain radiates up to his neck. Along with chest pain he complains of fever, sweats, chest pain, shortness of breath, fatigue, weakness. Patient denies chills, palpitations, leg swelling, wheezing abdominal pain,nausea, vomiting, diarrhea, lightheadedness, dizziness, headache, visual changes. Patient was then taken to the catheterization lab for emergent pericardiocentesis due to echo showing signs of cardiac tamponade. A right heart cath, left heart cath and pericardiocentesis were performed. They able to successfully drain the pericardial fluid with significant proven in blood pressure following pericardiocentesis and drain placement. There was minimal drain output and repeat echo showed no pericardial effusions. The patient was being managed by the hospitalist service and plans for discharge were in place, however the patient had recurrence of his pericardial effusion along with hypotension. Repeat echoes showed worsening ejection fraction and severely reduced RV systolic function with no inspiratory collapse of the IVC. Patient was taken back to the catheterization lab for a right heart cath which demonstrated elevated wedge pressure and RV pressures. A Assawoman-Shannan catheter was placed for further monitoring and the patient was transferred to the medical ICU. SUBJECTIVE Patient seen and examined the bedside this morning. He does endorse a new wet cough with pleuritic chest pain when he coughs. Chest x-ray and Mucinex ordered. His hematoma on the right side of his neck where the Assawoman catheter was placed is improving. Remains on dobutamine. Is receiving CRRT. OBJECTIVE Vitals height is 1.727 m (5' 8 ) and weight is 85.3 kg (188 lb 0.8 oz). His temperature is 36.1 ??C (97 ??F). His blood pressure is 77/50 and his pulse is 82. His respiration is 14 and oxygen saturation is 96%. Temp: [35.3 ??C (95.5 ??F)-36.3 ??C (97.3 ??F)] 36.1 ??C (97 ??F) Heart Rate: [76-94] 82 Resp: [13-28] 14 Arterial Line BP 1: (85-132)/(55-83) 85/69 Physical Exam: Physical Exam Constitutional: General: He is not in acute distress. Appearance: Normal appearance. He is not ill-appearing. Eyes: Extraocular Movements: Extraocular movements intact. Conjunctiva/sclera: Conjunctivae normal. Pupils: Pupils are equal, round, and reactive to light. Cardiovascular: Rate and Rhythm: Normal rate. Rhythm irregular. Pulses: Normal pulses. Pulmonary: Effort: Pulmonary effort is normal. Breath sounds: Normal breath sounds. Abdominal: General: Abdomen is flat. Palpations: Abdomen is soft. Neurological: General: No focal deficit present. Mental Status: He is alert and oriented to person, place, and time. Weight: Admission weight: 82.6 kg (182 lb) Wt Readings from Last 1 Encounters: 04/29/25 85.3 kg (188 lb 0.8 oz) Input/Output: Intake/Output Summary (Last 24 hours) at 04/29/2025 0750 Last data filed at 04/29/2025 0700 Gross per 24 hour Intake 5258.92 ml Output 6723 ml Net -1464.08 ml Ventilator: Lab Results ABG: Results from last 7 days Lab Units 04/28/25 0854 PH ART 7.36 PCO2 ART mmHg 30* PO2 ART mmHg 86 HCO3 ART mmol/L 16.9* CBC: Results from last 7 days Lab Units 04/29/25 0304 04/28/25 0321 04/27/25 1957 04/27/25 0536 WBC AUTO 10*3/uL 9.76 19.72* -- 8.21 HEMOGLOBIN g/dL 8.3* 9.4* 10.6* 11.2* HEMATOCRIT % 23.4* 27.2* 30.2* 32.0* PLATELETS AUTO 10*3/uL 133* 163 -- 287 Coagulation: Metabolic Panel: Results from last 7 days Lab Units 04/29/25 0304 04/29/25 0238 04/29/25 0022 04/28/252009 POTASSIUM mmol/L 3.6 3.7 3.5 3.7 CHLORIDE mmol/L 97* 96* 97* 99 CO2 mmol/L 26 26 26 21 BUN mg/dL 32* 32* 33* 38* CREATININE mg/dL 2.17* 2.24* 2.37* 2.65* GLUCOSE mg/dL 111* 111* 108* 109* CALCIUM mg/dL 7.1* 7.5* 7.2* 6.9* MAGNESIUM mg/dL 1.9 -- 2.0 1.8* Liver Panel: Results from last 7 days Lab Units 04/29/25 0238 04/28/25 1557 04/23/25 0502 ALBUMIN g/dL 3.1* 3.1* 3.7 BILIRUBIN TOTAL mg/dL 0.7 0.6 0.5 ALT U/L 267* 314* 18 AST U/L 252* 514* 34 ALK PHOS U/L 56 62 48 AMMONIA umol/L 56 -- -- Glucose: Hgb A1c: Cardiac: No lab exists for component: TROPI , TROPONIN Anemia Labs: Lipid Panel: Results from last 7 days Lab Units 04/24/25 0407 CHOLESTEROL mg/dL 98* HDL mg/dL 29 LDL CALC mg/dL 54 TRIGLYCERIDES mg/dL 75 Urine Labs: Lab Results Component Value Date UROBILINOGEN Normal 04/26/2025 Additional Labs: No lab exists for component: LACTICACID , PROCALCITON Radiology XR abdomen 1 view Narrative: XR ABDOMEN 1 VIEW 04/28/2025 12:37 AM CLINICAL INDICATIONS: Abdominal distention COMPARISON: None FINDINGS: Nonobstructive bowel gas pattern. Degenerative changes of the bilateral hips and SI joints. Seminal vesicle/vas deferens calcifications. Left femoral hemodialysis catheter noted. Combined automatic implantable cardiac defibrillator/pacing device leads. No acute abnormality within the visualized chest. Impression: * Nonobstructive bowel gas pattern. Approved by:Phill Orellana 1:10 AM. I, El Gomes,have reviewed the image(s) and agree with the findings in this report. Electronically signed: lE Gomes. Cultures Lab Results Component Value Date BLOOD CULTURE No growth at 5 days 04/20/2025 BLOOD CULTURE No growth at 5 days 04/20/2025 Medications Scheduled: allopurinol, 300 mg, oral, Daily aspirin, 81 mg, oral, Daily with breakfast atorvastatin, 40 mg, oral, Nightly clopidogrel, 75 mg, oral, Daily [Held by provider] colchicine, 0.6 mg, oral, BID [Held by provider] dapagliflozin propanediol, 10 mg, oral, Once Daily enoxaparin, 40 mg, subcutaneous, Daily [Held by provider] furosemide, 80 mg, intravenous, q12h hydrocortisone sodium succinate, 50 mg, intravenous, q12h ABILIO insulin lispro, 0-5 Units, subcutaneous, TID with meals And insulin lispro, 0-4 Units, subcutaneous, Nightly ipratropium-albuteroL, 3 mL, nebulization, q6h while awake [Held by provider] metoprolol succinate XL, 12.5 mg, oral, Daily mometasone-formoterol, 2 puff, inhalation, BID sennosides-docusate sodium, 1 tablet, oral, BID sodium bicarbonate, 1,300 mg, oral, BID [Held by provider] spironolactone, 25 mg, oral, Daily Infusions: amiodarone, 0.5 mg/min, Last Rate: 0.5 mg/min (04/29/25 0700) dialysate 3K with bicarb and calcium 5000 mL, 2,000 mL/hr, Last Rate: 2,000 mL/hr (04/29/25 0142) DOBUTamine, 2.5-15 mcg/kg/min, Last Rate: 2 mcg/kg/min (04/29/25 0700) epoprostenol (Veletri) 500 mcg in sodium chloride 0.9 % 100 mL (5 mcg/mL) infusion, 4 ng/kg/min, Last Rate: 4 ng/kg/min (04/29/25 0700) [Held by provider] milrinone, 0.25 mcg/kg/min, Last Rate: Stopped (04/26/25 1112) norEPINEPHrine, 0.01-2 mcg/kg/min, Last Rate: Stopped (04/28/25 0530) sodium bicarbonate 150 mEq in sterile water 1,000 mL infusion, 200 mL/hr, Last Rate: 200 mL/hr (04/29/25 0700) vasopressin, 0.04 Units/min, Last Rate: Stopped (04/28/25 0340) As Needed: PRN medications: acetaminophen, albuterol, alteplase, glucose OR dextrose 50 % in water (D50W),heparin (porcine), ipratropium-albuteroL, melatonin, naloxone OR naloxone OR naloxone, ondansetron ODT OR ondansetron, simethicone ASSESSMENT AND PLAN Assessment Cardiogenic shock secondary to circumferential pericardial effusion and cardiac tamponade Chronic heart failure with reduced ejection fraction EF 20% s/p ICD Acute pericarditis Paroxysmal atrial fibrillation Frequent PVCs HTN HLD Plan Cardiogenic shock secondary to circumferential pericardial effusion and cardiac tamponade Chronic heart failure with reduced ejection fraction EF 20% s/p ICD Patient had 300 cc removal with drain placement on 04/19, repeat echo on 04/23 showed severely reduced EF 20% and RV systolic function along with no inspiratory collapse of IVC Pericardial drain was removed on 04/20 due to resolution of effusion Assawoman Shannan placed on 04/24, has showed improvement in CO and CI--removed as hematoma was forming PA 38/24 PCWP 21 CO 4.2, CI 3.5 Melanie 0.72 Patient is currently on Dobutamine Added on hydrocortisone Good urine output 2.4L, lasix held as CRRT was started Will restart GDMT as appropriate once stable, holding for now Appreciate cardiology input Acute renal injury, improving on CRRT Metabolic acidosis Patient has had increase in creatinine to 3.36 from baseline Likely is due to combination of shock, cardiorenal syndrome, along with receiving IV contrast a couple days ago. Anticipate improvement once blood pressure stabilizes Bedside bladder ultrasound does not show any acute retention/obstruction Urine studies ordered: FeNa 2.6% showing ATN Patient showing signs of early/minimal pulmonary edema from volume overload Nephrology consulted Stopped lasix IV 80mg BID and IV drip Started CRRT as function isn't improving Urine output has improved Stopped sodium bicarbonate since pre filter fluid is also bicarbonate and would not want to cause alkalosis New layering right pleural effusion Patient had increased cough and crackles on exam today (04/29) prompting a CXR CXR shows vascular congestion with a new right basilar airspace opacification as well as a layeringright effusion No fevers/chills or WBC count making infectious process less likely Expect improvement with more CRRT sessions Acute normocytic anemia Hemoglobin is 8.3 from baseline normal a week ago Likely secondary to acute renal disease Ordered iron studies and started IV Aranesp Hyponatremia, improving Likely due to volume overload from cardiogenic shock along with aggressive diuresis Sodium is 132, continuing to trend Urine studies ordered Possible acute pericarditis Could explain the pericardial effusion and tamponade Was on colchicine, but held due to kidney function decline Continue allopurinol Paroxysmal atrial fibrillation. Controlled CHADSVASC 3 (HTN, CHF, age) Had Watchamn on 01/2025 due to prior Eliquis bleeding Currently on aspirin and Plavix, continuing Rate controlled on Toprol 12.5 BID, continue as BP allows Started amiodarone drip, continuing Frequent PVCs on tele Likely is due to tamponade and current cardiogenic shock Toprol for suppression Continue tele and monitoring Last ABG: None Fluids: CRRT Pressor support: Dobutamine, Lines (location & placement): yolande Mckeon DVT prophylaxis: Heparin subq Diet: Regular Code Status: FULL This progress note was completed using a voice commodities requirements analyst system. Every effort was made to ensure accuracy. However, inadvertent computerized commodities requirements analyst errors may be present. Karsten Gage MD PGY2 IM Resident 04/29/25 7:50 AM Cosigned by Pepe Anthony MD at 04/30/2025 9:24 AM EDT Associated attestation - Pepe Anthony MD - 04/30/2025 9:24 AM EDT I evaluated the patient with the resident/fellow Karsten Gage MD on the same day, agree with thefindings as described with the following additions or corrections: Cardiogenic shock on dobutamine, wean down as tolerated. He is off of Levophed, target a MAP of 65. Cardiorenal syndrome with ATN on hemodialysis with CVVHD. Continue volume removal as tolerated. Monitor electrolytes closely. Poor prognosis with severely low ejection fraction. I personally provided direct critical care services consisting of decision making of high complexity to assess, and support: Cardiogenic shock Acute renal failure High risk medication infusion of dobutamine and to prevent further deterioration for the organ dysfunction. Critical Care minutes were 32, which excludes time performing separately billed procedures, updating family, and teaching. * Sagrario Martel MD - 04/29/2025 6:41 AM EDT Images from the original note were not included. Cardiology Progress Note Subjective Subjective: No acute events overnight. Patient was seen and examined today, He is on CRRT. Patient reports mild shortness of breath, no chest pain. Objective Objective: Patient Vitals for the past 24 hrs: Temp Temp src Pulse Resp SpO2 Weight 04/29/25 0600 36 ??C (96.8 ??F) -- 88 21 94 % -- 04/29/25 0500 35.9 ??C (96.6 ??F) -- 86 24 96 % 85.3 kg (188 lb 0.8 oz) 04/29/25 0400 35.9 ??C (96.6 ??F) Axillary 83 13 95 % -- 04/29/25 0300 36.2 ??C (97.2 ??F) -- 87 13 95 % -- 04/29/25 0200 36.2 ??C (97.2 ??F) -- 89 22 94 % -- 04/29/25 0100 36.2 ??C (97.2 ??F) -- 89 20 97 % -- 04/29/25 0000 36.2 ??C (97.2 ??F) Axillary 88 16 96 % -- 04/28/25 2300 36.1 ??C (97 ??F) -- 90 16 95 % -- 04/28/25 2200 36.3 ??C (97.3 ??F) -- 94 23 99 % -- 04/28/25 2100 36.2 ??C (97.2 ??F) -- 91 20 96 % -- 04/28/252006 -- -- 87 22 98 % -- 04/28/25 2000 36.2 ??C (97.2 ??F) Axillary 88 20 96 % -- 04/28/25 1900 36.2 ??C (97.2 ??F) -- 88 19 96 % -- 04/28/25 1800 35.9 ??C (96.6 ??F) -- 91 25 95 % -- 04/28/25 1700 36.3 ??C (97.3 ??F) -- 85 15 100 % -- 04/28/25 1600 36 ??C (96.8 ??F) -- 85 22 92 % -- 04/28/25 1500 35.8 ??C (96.4 ??F) -- 80 21 100 % -- 04/28/25 1449 -- -- 80 17 95 % -- 04/28/25 1400 35.5 ??C (95.9 ??F) -- 78 20 99 % -- 04/28/25 1300 35.3 ??C (95.5 ??F) -- 80 20 97 % -- 04/28/25 1200 -- -- 81 (!) 28 99 % -- 04/28/25 1100 35.6 ??C (96.1 ??F) -- 80 23 97 % -- 04/28/25 1000 35.6 ??C (96.1 ??F) -- 77 20 97 % -- 04/28/25 0900 35.6 ??C (96.1 ??F) -- 76 18 97 % -- 04/28/25 0800 36.1 ??C (97 ??F) -- 86 14 98 % -- Physical Examination: GENERAL: AOx3, in no acute distress. NECK: No JVD present. CARDIAC: RRR. No murmur, rubs, or gallops. RESPIRATORY: CTAB, no increased effort of breathing. ABDOMEN: Soft, nontender, nondistended. EXTREMITIES: No lower extremity edema, peripheral pulses are 2+ bilaterally. Relevant Lab Results Encounter Date: 04/19/25 ECG 12 lead Result Value Ventricular Rate 120 Atrial Rate 120 ME Interval 198 QRS DURATION 102 QT Interval 294 QTC CALCULATION(BAZETT) 415 P Welch 64 R-Welch 38 T Wave Welch 116 Impression Sinus tachycardia Low voltage QRS Septal infarct , age undetermined Abnormal ECG When compared with ECG of 19-APR-2025 18:24, Premature ventricular complexes are no longer Present Confirmed by Jeffy VERNON, MITESH Pruett ([id number]) on 04/23/2025 8:14:48 AM Lab Results Component Value Date TROPONINI 0.04 07/02/2022 Limited Echo (TTE) w/wo Limited Doppler, Color Flow, Imaging Agent, Strain, 3D, Bubble Study Result Date: 04/23/2025 1 1 [facility] Heart Station [address] [place] [address] [phone] (fax) Echocardiogram-[facility] Name: KRISTY DOHERTY Study Date: 04/23/2025 07:26 AM B/P: 90 mmHg/74 mmHg HR: 111 bpm Date of : 1955 Location: [facility] Height: 68 in. Age: 69 year(s) Patient Room: 3183 Weight: 177 lb. Gender: Male Patient Status: InPt BSA: 1.94 m2 Indication: Limited; pericardial effusion, S/P 35 mm Watchman device FLX, S/P Pericardiocentesis, H/O 25-30%, Pacemaker/AICD Examination: Limited Echo/Limited Doppler, Color flow imaging Image Quality: Good Patient Consent: Procedure explained to patient Conclusions Left Ventricle: Global left ventricular systolic function is severely reduced. The EF is 20 % visually. Regional wall motion abnormalities (see diagram). Right Ventricle: Severely reduced right ventricular systolic function. A pacemaker wire is seen in the right ventricle. Doppler studies suggest moderately elevated right sided pressures (elevated pulmonary pressure). Mitral Valve: Mild to moderate mitral regurgitation. Aortic Valve: Mild aortic valve regurgitation. Tricuspid Valve: Moderate tricuspid regurgitation. Overall Conclusions: Decrease in right ventricular systolic function and increase in tricuspid insufficiency when compared to previous study. Measurements Left Ventricle Label Value Normal Value LVEF visual 20 % Tricuspid Valve Label Value Normal Value RA Pressure 8 mmHg RVSP 49 mmHg TR Vmax 3.22 m/s Great Vessels Label Value Normal Value IVC 2 cm (1.2cm - 2.3cm) Valvular Assessment LVOT 0.7 - 1.1 m/sec Aortic Valve 1.0 - 1.7 m/sec Mitral Valve 0.6 - 1.3 m/sec Tricuspid Valve 0.3 - 0.7 m/sec Pulmonic Valve 0.6 - 0.9 m/sec Regurgitation Mild MildMod Moderate Findings Left Ventricle: Global left ventricular systolic function is severely reduced. The EF is 20 % visually. Regional wall motion abnormalities (see diagram). The basal anterior, basal anteroseptal, basal inferoseptal, basal inferior, basal inferolateral, basal anterolateral, mid inferoseptal, mid inferior and mid inferolateral left ventricular wall segments are hypokinetic. The mid anterior, mid anteroseptal, mid anterolateral, apical anterior, apical septal, apical inferior, apical lateral and apex left ventricular wall segments are akinetic. Right Ventricle: The right ventricular free wall is akinetic in the distaltwo- thirds. Severely reduced right ventricular systolic function. A pacemaker wire is seen in the right ventricle. Doppler studies suggest moderately elevated right sided pressures (elevated pulmonary pressure). Mitral Valve: The mitral valve is normal in mobility and thickness. Mild to moderate mitral regurgitation. Aortic Valve: The aortic valve opens well. Mildly sclerosed aortic valve cusps. Mild aortic valve regurgitation. Tricuspid Valve: Normal tricuspid valve. Moderate tricuspid regurgitation. Pulmonic Valve: Pulmonary valve not visualized. Great Vessels: IVC: The IVC is normal in size. There is no inspiratory collapse of the IVC. Pericardium: There is a minimal pericardial effusion. Procedure Staff Reading Group: [facility] Referring Physician: RUDY KING Property Consultant: June Brumfield RDCS, RVT, RN, BSN Ordering Physician: FANI DENNEY Wall Motion Scores -1 - hyperkinesia, 0 - not evaluated, 1 - normal, 2 - hypokinesia, 3 - akinesia, 4 - dyskinesia Transthoracic echo (TTE) limited Result Date: 04/20/2025 1 1 [place] [facility] Heart Station [address] [place] [address] [phone] (fax) Echocardiogram-[facility] Name: KRISTY DOHERTY Study Date: 04/20/2025 01:28 PM B/P: 83 mmHg/58 mmHg HR: 96 bpm Date of : 1955 Location: [facility] Height: 68 in. Age: 69 year(s) Patient Room: 3183 Weight: 179 lb. Gender: Male Patient Status: InPt BSA: 1.95 m2 Indication: Limited; evaluate pericardial effusion, S/P 35 mm Watchman FLX, H/O EF 25 - 30 %, Pacemaker, Cardiomyopathy Examination: Limited Echo/Limited Doppler, Color flow imaging Image Quality: Good Patient Consent: Procedure explained to patient Conclusions Left Ventricle: Global left ventricular systolic function is severely reduced. The EF is 30 % visually. The septum is abnormal in its motion. Right Ventricle: Right ventricular systolic function appears normal. A pacemaker wire is seen in the right ventricle. Doppler studies suggest normal right sided pressures. Pericardium: No pericardial effusion. Measurements Left Ventricle Label Value Normal Value LVEF visual 30 %Tricuspid Valve Label Value Normal Value RA Pressure 3 mmHg RVSP 24 mmHg TR Vmax 2.29 m/s Great Vessels Label Value Normal Value IVC 1.1 cm (1.2cm - 2.3cm) Valvular Assessment LVOT 0.7 - 1.1 m/sec Aortic Valve 1.0 - 1.7 m/sec Mitral Valve 0.6 - 1.3 m/sec Tricuspid Valve 0.3 - 0.7 m/sec Pulmonic Valve 0.6 - 0.9 m/sec Regurgitation Trivial Trivial Trivial Findings Left Ventricle: Global left ventricular systolic function is severely reduced. The EF is 30 % visually. The septum is abnormal in its motion. All scored left ventricular wall segments are hypokinetic. Right Ventricle: Right ventricular systolic function appears normal. A pacemaker wire is seen in the right ventricle. Doppler studies suggest normal right sided pressures. Mitral Valve: The mitral valve is normal in mobility and thickness. Trivial mitral regurgitation. Aortic Valve: Mildly sclerosed aortic valve cusps. Trivial aortic valve regurgitation. Tricuspid Valve: Normal tricuspid valve. Trivial tricuspid regurgitation. Great Vessels: IVC: The IVC is normal in size. There is inspiratory collapse of the IVC. Pericardium: No pericardial effusion. Procedure Staff Reading Group: [facility] Referring Physician:RUDY KING Property Consultant: June Brumfield RDCS, RVT, RN, BSN Ordering Physician: VENU SAMANIEGO Wall Motion Scores -1 - hyperkinesia, 0 - not evaluated, 1 - normal, 2 - hypokinesia, 3 - akinesia, 4 - dyskinesia Transthoracic echo (TTE) limited Result Date: 04/19/2025 1 1 [place] [facility] Heart Station [address] [facility] [address] (fax) Echocardiogram-[facility] Name: KRISTY DOHERTY Study Date: 04/19/2025 02:13 PM B/P: / HR: Date of : 1955 Location: [facility] Height: 68 in. Age: 69 year(s) Patient Room: [facility] Weight: 182 lb. Gender: Male Patient Status: InPt BSA: 1.96 m2 Indication: pericardialeffusion, h/o 35mm Watchman FLX Examination: Limited Echo Image Quality: Fair Findings Pericardium: Moderate pericardial effusion baseline. Post pericardiocentesis there is minimal pericardial effusion. Procedure Staff Reading Group: [facility] Referring Physician: RUDY KING Property Consultant: SAMI Starr RDCS Ordering Physician: VENU SAMANIEGO Complete Echo (TTE) w/wo Imaging Agent, Strain, 3D, Bubble Study Result Date: 04/19/2025 1 1 [place] [facility] Heart Station [address] [facility] [address] [phone] (fax) Echocardiogram-[facility] Name: KRISTY DOHERTY Study Date: 04/19/2025 12:46 PM B/P: 97 mmHg/71 mmHg HR: Date of : 1955 Location: [facility] Height: 68 in. Age: 69 year(s) Patient Room: 3183 Weight: 182 lb. Gender: Male Patient Status: InPt BSA: 1.96 m2 Indication: Chest Pain, s/p 35mm Watchman FLX Examination: Echocardiogram (Complete) ImageQuality: Fair Patient Consent: Procedure explained to patient Conclusions Left Ventricle: The left ventricle is normal size. Global left ventricular systolic function is normal. The EF is 60 % visually. Left ventricular wall thickness is normal. No regional wall motion abnormality. Right Ventricle:The right ventricle appears normal in size. Right ventricular systolic function appears normal. Doppler studies suggest normal right sided pressures. Left Atrium: Watchman device visualized . The left atrium appears normal in size. Aortic Valve: Mild aortic valve regurgitation. Tricuspid Valve: Mild tricuspid regurgitation. Pericardium: There is a moderate circumfrential pericardial effusion. There is also, significant mitral inflow variations consistent with early tamponade physiology. Measurements Left Ventricle Label Value Normal Value LVOT VTI 11.1 cm (18cm - 22cm) LVOT PGmax 3 mmHg LVEF visual 60 % LVOT PGmean 1 mmHg Right Ventricle Label Value Normal Value TAPSE 0.97 cm Aortic Valve Label Value Normal Value AV DVI 0.5 AV VTI 23.1 cm Mitral Valve Label Value Normal Value MV E Vmax 0.54 m/s MV A Vmax 0.79 m/s MV E/A 0.68 MV E/E' lateral 7.6 MV E' lateral 0.07 m/s Tricuspid Valve Label Value Normal Value RA Pressure 3 mmHg RVSP 30 mmHg TR Vmax 2.59 m/s Valvular Assessment LVOT 0.7 - 1.1 m/sec Aortic Valve 1.0 - 1.7 m/sec Mitral Valve 0.6 - 1.3 m/sec Tricuspid Valve 0.3 - 0.7 m/sec Pulmonic Valve 0.6 - 0.9 m/sec Regurgitation Mild No Mild No Max Velocity 0.81 m/sec 1.62 m/s 0.54m/sec 1.02 m/s Max Gradient 10.00 mmHg 4.00 mmHg Mean Gradient 5.00 mmHg Findings Left Ventricle: The left ventricle is normal size. Global left ventricular systolic function is normal. The EF is 60 % visually. Left ventricular wall thickness is normal. No regional wall motion abnormality. Right Ventricle: The right ventricle appears normal in size. Right ventricular systolic function appears normal. Doppler studies suggest normal right sided pressures. Left Atrium: Watchman device visualized .The left atrium appears normal in size. Right Atrium: The right atrium appears normal in size. Mitral Valve: The mitral valve is normal in mobility and thickness. No mitral regurgitation. Aortic Valve: Focal aortic cusp thickening is noted. Mild aortic valve regurgitation. Tricuspid Valve: Normal tricuspid valve. Mild tricuspid regurgitation. Pulmonic Valve: Normal pulmonary valve. No pulmonary regurgitation. Aorta: The aortic root exhibits normal size. Great Vessels: IVC: Normal size and course of the IVC. Pericardium: There is a moderate circumfrential pericardial effusion. There is also, significant mitral inflow variations consistent with early tamponade physiology. Procedure Staff Reading Group: [facility] Property Consultant: Bryanna Cazares RDCS Ordering Physician: HAKAN Canchola signed by MD Mitesh Vernon on 04/19/2025 at 01:44 PM Limited Transthoracic Echo (TTE) w/wo Contrast, Color Flow, Imaging Agent, Strain, 3D, Bubble Study Result Date: 02/07/2025 1 1 [place] [facility] Heart Station [address] [place] [address] [phone] (fax) Echocardiogram-[facility] Name: KRISTY DOHERTY Study Date: 02/07/2025 08:02 AM B/P: 118 mmHg/85 mmHg HR: 63 bpm Date of : 1955 Location: [facility] Height: 68 in. Age: 69 year(s) Patient Room: 3176 Weight: 186 lb. Gender: Male Patient Status: InPt BSA: 1.98 m2 Indication: Atrial Fibrillation, Pacemaker, s/p 35mm Watchman FLX Examination: Limited Echo, Color flow imaging, Lumason Contrast Image Quality: Fair Patient Consent: Procedure explained to patient Exam Details Contrast: I.V. dose of Lumason Conclusions Left Ventricle: The left ventricle is [...] Aortic Valve: Mild aortic valve regurgitation. Overall C onclusions: Due to suboptimal imaging Lumason contrast was administered for opacification and better delineation of endocardial borders. Well seated 35mm Watchman FLX PRO. Measurements Left VentricleLabel Value Normal Value LVDd, 2D 5.86 cm (4.2cm - 5.9cm) LVDs, 2D 5.21 cm (2.1cm - 4cm) IVSd, 2D 0.91 cm (0.6cm - 1.1cm) LVPWd, 2D 1.06 cm (0.6cm - 1cm) LV Mass, 2D ASE 232.58 g LV Mass Index, 2D ASE 117.5 g/m?? (50g/m?? - 102.4g/m??) RWT, MM 0.36 (0 - 0.42) LVSVI, 2D 20.7 ml/m2 Aorta Label Value Normal Value AoRoot, 2D 3.4 cm (1.4cm - 3.8cm) Valvular Assessment LVOT 0.7 - 1.1 m/sec Aortic Valve1.0 - 1.7 m/sec Mitral Valve 0.6 - 1.3 m/sec Tricuspid Valve 0.3 - 0.7 m/sec Pulmonic Valve 0.6 - 0.9 m/sec Regurgitation Mild trivMil Findings Left Ventricle: The left ventricle is normal size. Global left ventricular systolic function is severely reduced. EF range is estimated at 25 % -30 %. Leftventricular wall thickness is increased. Diffuse global hypokinesis. Right Ventricle: The right ventricle is normal in size. Normal right ventricular systolic function. A pacemaker wire is seen in the right atrium and right ventricle. Left Atrium: The left atrium is normal in size. Right Atrium: The right atrium is normal in size. Mitral Valve: There is nonspecific thickening of the mitral valve leaflet. Trvial to mild mitral regurgitation. Aortic Valve: Focal aortic cusp thickening is noted. Mild aortic valve regurgitation. Tricuspid Valve: Normal tricuspid valve. Pulmonic Valve: Normal pulmonary valve. Aorta: The aortic root exhibits normal size. Great Vessels: IVC: The IVC is normal in size. Pericardium: No pericardial effusion. Procedure Staff Reading Group: [facility] Referring Physician: RUDY KING Property Consultant: SAMI Starr, RDCS Ordering Physician: CHUCK FUNEZ Transesophageal echo (MASON) Result Date: 12/01/2024 1 [place] [facility] Heart Station [address] [place] [address] [phone] (fax) Transesophageal Echocardiogram-[facility] Name: KRISTY DOHERTY Study Date: 12/01/2024 12:00 PM B/P: 134 mmHg/87 mmHg HR: 80 bpm Date of : 1955 Location: [facility] Height: 68 in. Age: 69 year(s) Patient Room: Weight: 194 lb. Gender: Male PatientStatus: OutPt BSA: 2.02 m2 Indication: Atrial Fibrillation, Pre-Watchman Examination: MASON, Color flow imaging Image Quality: Excellent Patient Consent: Informed, written consent was obtained for the procedure Exam Location: A MASON was performed in the [facility] without complications Anesthesia Pharyngeal anesthesia with viscous Lidocaine Conclusions Left Ventricle: The left ventricle is normal size. Global left ventricular systolic function is severely reduced. EF range is estimated at 25 % -30 %. Left ventricular wall thickness is normal. Diffuse global hypokinesis. Right Ventricle: The right ventricle appears normal in size. Normal right ventricular systolic function. Left Atrium: The left a trium is severely enlarged. Left Atrium Appendage: The left atrial appendage is monolobular. Normalleft atrial appendage, no thrombus seen. ROBB measutments [...] 50 micrograms Valvular Assessment LVOT 0.7 - 1.1m/sec Aortic Valve 1.0 - 1.7 m/sec Mitral Valve 0.6 - 1.3 m/sec Tricuspid Valve 0.3 - 0.7 m/sec Pulm onic Valve 0.6 - 0.9 m/sec Regurgitation Mod [...] atrium is severely enlarged. Left Atrium Appendage: Theleft atrial appendage is normal. The left atrial [...] is a minimal pericardial effusion. The Attending Ph ysician was present and personally reviewed the examination with the fellow Procedure Staff ReadingGroup: [facility] Referring Physician: RUDY KING Property Consultant: DORIAN Walker Ordering Physician: Hay William MD No nuclear medicine results found for the past 12 months Relevant Imaging Results XR abdomen 1 view Narrative: XR ABDOMEN 1 VIEW 04/28/2025 12:37 AM CLINICAL INDICATIONS: Abdominal distention COMPARISON: None FINDINGS: Nonobstructive bowel gas pattern. Degenerative changes of the bilateral hips and SI joints. Seminal vesicle/vas deferens calcifications. Left femoral hemodialysis catheter noted. Combined automatic implantable cardiac defibrillator/pacing device leads. No acute abnormality within the visualized chest. Impression: * Nonobstructive bowel gas pattern. Approved by:Phill Orellnaa 1:10 AM. I, El Gomes,have reviewed the image(s) and agree with the findings in this report. Electronically signed: El Gomes. Assessment: Cardiogenic shock, cardiac index 1.3 L/min/m2, likely secondary to acute heart failure exacerbation Acute right ventricular failure Melanie 0.72 < 1 suggestive of significant RV failure RHC suggestive of biventricular failure Acute on chronic heart failure with reduced ejection fraction s/p ICD placement, NYHA II/III 04/23/2025 echo with EF 20%, severely reduced RV systolic function, mild-moderate MR, mild AV regurg, mild TR, elevated RVSP 49 Non-oliguric acute kidney injury, worsening with decreased urinary output Likely underlying cardiorenal syndrome: type1 Moderate circumferential pericardial effusion s/p RHC and pericardiocentesis (300cc removal) with drain placement on 04/19/25 - unclear etiology, cannot rule out acute pericarditis Pericardial drain removed 04/20 after resolution of effusion on 04/20 echo Repeat echo limited 04/23/2025 with EF 20%, severely reduced RV systolic function, and no inspiratory collapse of IVC (new findings), and minimal pericardial effusion Frequent PVC's and runs of NSVT on telemetry, on amiodarone gtt Paroxysmal A-fib [id number] 3 (heart failure, hypertension, age 65-74) s/p Watchman procedure on 02/06/2025 (due to prior bleeding with eliquis) Nonobstructive coronary artery disease Hyperlipidemia (unspecified) on lipitor 40 Plan: decrease Dobutamine at 1 mcg/Kg/min CRRT by nephrology team Aggressive electrolyte replacement to maintain potassium > 4 and magnesium > 2 Resume colchicine 0.6 mg as dialysis has been initiated. Will stop amiodarone drip for now, and monitor Continue Cardiac medications as tolerated (currently limited by hypotension) Lipitor 40 mg, aspirin 81 mg & Plavix 75 mg Holding: Toprol-XL 12.5 mg daily, Farxiga 10 mg daily, Entresto 97/103 mg b.I.d. & Aldactone 25mg. Cardiology will continue to follow. Please call with any questions. Sagrario Martel MD Cardiovascular disease fellow [facility] Cosigned by Wil Sotomayor MD at 04/29/2025 3:54 PM EDT * Sagrario Martel MD - 04/28/2025 11:21 AM EDT Images from the original note were not included. Cardiology Progress Note Subjective Subjective: Patient had Trialysis catheter and was started on CRRT last night given worsening kidney function and minimal urine output. Patient was seen and examined today. He reports no chest pain or shortness of breath. Patient is on dobutamine , amiodarone. Objective Objective: Patient Vitals for the past 24 hrs: Temp Pulse Resp SpO2 Weight 04/28/25 0900 35.6 ??C (96.1 ??F) 76 18 97 % -- 04/28/25 0800 36.1 ??C (97 ??F) 86 14 98 % -- 04/28/25 0530 -- 79 -- -- -- 04/28/25 0515 -- -- -- -- 85.1 kg (187 lb 9.8 oz) 04/28/25 0503 -- 79 -- -- -- 04/28/25 0439 -- 78 -- -- -- 04/28/25 0407 -- 92 -- -- -- 04/28/25 0400 35.3 ??C (95.5 ??F) 78 23 99 % -- 04/28/25 0345 -- 78 24 99 % -- 04/28/25 0333 -- 78 -- -- -- 04/28/25 0300 34.3 ??C (93.7 ??F) 78 25 99 % -- 04/28/25 0200 35.6 ??C (96.1 ??F) 78 21 100 % -- 04/28/25 0105 -- 78 -- -- -- 04/28/25 0100 35.3 ??C (95.5 ??F) 79 24 100 % -- 04/28/25 0000 35.5 ??C (95.9 ??F) 78 (!) 28 98 % -- 04/27/25 2314 -- 80 25 90 % -- 04/27/25 2300 35.7 ??C (96.3 ??F) 79 24 98 % -- 04/27/25 2243 -- 84 -- -- -- 04/27/25 2200 (!) 33 ??C (91.4 ??F) 89 25 97 % -- 04/27/252114 -- 97 -- -- -- 04/27/25 2100 -- 85 26 95 % -- 04/27/25 203 -- 83 22 94 % -- 04/27/25 2000 -- 94 (!) 27 92 % -- 04/27/25 1900 -- 90 (!) 30 93 % -- 04/27/25 1800 -- 92 (!) 31 93 % -- 04/27/25 1700 -- 109 23 95 % -- 04/27/25 1600 36.4 ??C (97.5 ??F) 97 24 97 % -- 04/27/25 1500 -- 88 24 -- -- 04/27/25 1400 -- 83 26 90 % -- 04/27/25 1300 -- 85 26 99 % -- 04/27/25 1245 -- 90 -- -- -- 04/27/25 1221 -- 90 -- -- -- 04/27/25 1200 36.5 ??C (97.7 ??F) 92 (!) 27 97 % -- Physical Examination: GENERAL: AOx3, in no acute distress. HEAD: Atraumatic, normocephalic. EYES: STEFFANY, EOMI. NECK: No JVD present. CARDIAC: RRR. No murmur, rubs, or gallops. RESPIRATORY: CTAB, no increased effort of breathing. ABDOMEN: Soft, nontender, nondistended. EXTREMITIES: No lower extremity edema, peripheral pulses are 2+ bilaterally. Relevant Lab Results Encounter Date: 04/19/25 ECG 12 lead Result Value Ventricular Rate 120 Atrial Rate 120 ME Interval 198 QRS DURATION 102 QT Interval 294 QTC CALCULATION(BAZETT) 415 P Welch 64 R-Welch 38 T Wave Welch 116 Impression Sinus tachycardia Low voltage QRS Septal infarct , age undetermined Abnormal ECG When compared with ECG of 19-APR-2025 18:24, Premature ventricular complexes are no longer Present Confirmed by Jeffy VERNON, MITESH Pruett ([id number]) on 04/23/2025 8:14:48 AM Lab Results Component Value Date TROPONINI 0.04 07/02/2022 Limited Echo (TTE) w/wo Limited Doppler, Color Flow, Imaging Agent, Strain, 3D, Bubble Study Result Date: 04/23/2025 1 1 [place] [facility] Heart Station [address] [place] [address] [phone] (fax) Echocardiogram-[facility] Name: KRISTY DOHERTY Study Date: 04/23/2025 07:26 AM B/P: 90 mmHg/74 mmHg HR: 111 bpm Date of : 1955 Location: [facility] Height: 68 in. Age: 69 year(s) Patient Room: 3183 Weight: 177 lb. Gender: Male Patient Status: InPt BSA: 1.94 m2 Indication: Limited; pericardial effusion, S/P 35 mm Watchman device FLX, S/P Pericardiocentesis, H/O 25-30%, Pacemaker/AICD Examination: Limited Echo/Limited Doppler, Color flow imaging Image Quality: Good Patient Consent: Procedure explained to patient Conclusions Left Ventricle: Global left ventricular systolic function is severely reduced. The EF is 20 % visually. Regional wall motion abnormalities (see diagram). Right Ventricle: Severely reduced right ventricular systolic function. A pacemaker wire is seen in the right ventricle. Doppler studies suggest moderately elevated right sided pressures (elevated pulmonary pressure). Mitral Valve: Mild to moderate mitral regurgitation. Aortic Valve: Mild aortic valve regurgitation. Tricuspid Valve: Moderate tricuspid regurgitation. Overall Conclusions: Decrease in right ventricular systolic function and increase in tricuspid insufficiency when compared to previous study. Measurements Left Ventricle Label Value Normal Value LVEF visual 20 % Tricuspid Valve Label Value Normal Value RA Pressure 8 mmHg RVSP 49 mmHg TR Vmax 3.22 m/s Great Vessels Label Value Normal Value IVC 2 cm (1.2cm - 2.3cm) Valvular Assessment LVOT 0.7 - 1.1 m/sec Aortic Valve 1.0 - 1.7 m/sec Mitral Valve 0.6 - 1.3 m/sec Tricuspid Valve 0.3 - 0.7 m/sec Pulmonic Valve 0.6 - 0.9 m/sec Regurgitation Mild MildMod Moderate Findings Left Ventricle: Global left ventricular systolic function is severely reduced. The EF is 20 % visually. Regional wall motion abnormalities (see diagram). The basal anterior, basal anteroseptal, basal inferoseptal, basal inferior, basal inferolateral, basal anterolateral, mid inferoseptal, mid inferior and mid inferolateral left ventricular wall segments are hypokinetic. The mid anterior, mid anteroseptal, mid anterolateral, apical anterior, apical septal, apical inferior, apical lateral and apex left ventricular wall segments are akinetic. Right Ventricle: The right ventricular free wall is akinetic in the distaltwo- thirds. Severely reduced right ventricular systolic function. A pacemaker wire is seen in the right ventricle. Doppler studies suggest moderately elevated right sided pressures (elevated pulmonary pressure). Mitral Valve: The mitral valve is normal in mobility and thickness. Mild to moderate mitral regurgitation. Aortic Valve: The aortic valve opens well. Mildly sclerosed aortic valve cusps. Mild aortic valve regurgitation. Tricuspid Valve: Normal tricuspid valve. Moderate tricuspid regurgitation. Pulmonic Valve: Pulmonary valve not visualized. Great Vessels: IVC: The IVC is normal in size. There is no inspiratory collapse of the IVC. Pericardium: There is a minimal pericardial effusion. Procedure Staff Reading Group: [facility] Referring Physician: RUDY KING Property Consultant: June Brumfield RDCS, RVT, RN, BSN Ordering Physician: FANI DENNEY Wall Motion Scores -1 - hyperkinesia, 0 - not evaluated, 1 - normal, 2 - hypokinesia, 3 - akinesia, 4 - dyskinesia Transthoracic echo (TTE) limited Result Date: 04/20/2025 1 1 [place] [facility] Heart Station [address] [place] [address] [phone] (fax) Echocardiogram-[facility] Name: KRISTY DOHERTY Study Date: 04/20/2025 01:28 PM B/P: 83 mmHg/58 mmHg HR: 96 bpm Date of : 1955 Location: [facility] Height: 68 in. Age: 69 year(s) Patient Room: 3183 Weight: 179 lb. Gender: Male Patient Status: InPt BSA: 1.95 m2 Indication: Limited; evaluate pericardial effusion, S/P 35 mm Watchman FLX, H/O EF 25 - 30 %, Pacemaker, Cardiomyopathy Examination: Limited Echo/Limited Doppler, Color flow imaging Image Quality: Good Patient Consent: Procedure explained to patient Conclusions Left Ventricle: Global left ventricular systolic function is severely reduced. The EF is 30 % visually. The septum is abnormal in its motion. Right Ventricle: Right ventricular systolic function appears normal. A pacemaker wire is seen in the right ventricle. Doppler studies suggest normal right sided pressures. Pericardium: No pericardial effusion. Measurements Left Ventricle Label Value Normal Value LVEF visual 30 %Tricuspid Valve Label Value Normal Value RA Pressure 3 mmHg RVSP 24 mmHg TR Vmax 2.29 m/s Great Vessels Label Value Normal Value IVC 1.1 cm (1.2cm - 2.3cm) Valvular Assessment LVOT 0.7 - 1.1 m/sec Aortic Valve 1.0 - 1.7 m/sec Mitral Valve 0.6 - 1.3 m/sec Tricuspid Valve 0.3 - 0.7 m/sec Pulmonic Valve 0.6 - 0.9 m/sec Regurgitation Trivial Trivial Trivial Findings Left Ventricle: Global left ventricular systolic function is severely reduced. The EF is 30 % visually. The septum is abnormal in its motion. All scored left ventricular wall segments are hypokinetic. Right Ventricle: Right ventricular systolic function appears normal. A pacemaker wire is seen in the right ventricle. Doppler studies suggest normal right sided pressures. Mitral Valve: The mitral valve is normal in mobility and thickness. Trivial mitral regurgitation. Aortic Valve: Mildly sclerosed aortic valve cusps. Trivial aortic valve regurgitation. Tricuspid Valve: Normal tricuspid valve. Trivial tricuspid regurgitation. Great Vessels: IVC: The IVC is normal in size. There is inspiratory collapse of the IVC. Pericardium: No pericardial effusion. Procedure Staff Reading Group: [facility] Referring Physician:RUDY KING Property Consultant: June Brumfield RDCS, RVT, RN, BSN Ordering Physician: VENU SAMANIEGO Wall Motion Scores -1 - hyperkinesia, 0 - not evaluated, 1 - normal, 2 - hypokinesia, 3 - akinesia, 4 - dyskinesia Transthoracic echo (TTE) limited Result Date: 04/19/2025 1 1 [facility] Heart Station [address] [place] [address] (fax) Echocardiogram-[facility] Name: KRISTY DOHERTY Study Date: 04/19/2025 02:13 PM B/P: / HR: Date of : 1955 Location: [facility] Height: 68 in. Age: 69 year(s) Patient Room: 3183 Weight: 182 lb. Gender: Male Patient Status: InPt BSA: 1.96 m2 Indication: pericardialeffusion, h/o 35mm Watchman FLX Examination: Limited Echo Image Quality: Fair Findings Pericardium: Moderate pericardial effusion baseline. Post pericardiocentesis there is minimal pericardial effusion. Procedure Staff Reading Group: [facility] Referring Physician: RUDY KING Property Consultant: SAMI Starr, RDCS Ordering Physician: VENU SAMANIEGO Complete Echo (TTE) w/wo Imaging Agent, Strain, 3D, Bubble Study Result Date: 04/19/2025 1 1 [facility] Heart Station [address] [place] [address] (fax) Echocardiogram-[facility] Name: KRISTY DOHERTY Study Date: 04/19/2025 12:46 PM B/P: 97 mmHg/71 mmHg HR: Date of : 1955 Location: [facility] Height: 68 in. Age: 69 year(s) Patient Room: 3183 Weight: 182 lb. Gender: Male Patient Status: InPt BSA: 1.96 m2 Indication: Chest Pain, s/p 35mm Watchman FLX Examination: Echocardiogram (Complete) ImageQuality: Fair Patient Consent: Procedure explained to patient Conclusions Left Ventricle: The left ventricle is normal size. Global left ventricular systolic function is normal. The EF is 60 % visually. Left ventricular wall thickness is normal. No regional wall motion abnormality. Right Ventricle:The right ventricle appears normal in size. Right ventricular systolic function appears normal. Doppler studies suggest normal right sided pressures. Left Atrium: Watchman device visualized . The left atrium appears normal in size. Aortic Valve: Mild aortic valve regurgitation. Tricuspid Valve: Mild tricuspid regurgitation. Pericardium: There is a moderate circumfrential pericardial effusion. There is also, significant mitral inflow variations consistent with early tamponade physiology. Measurements Left Ventricle Label Value Normal Value LVOT VTI 11.1 cm (18cm - 22cm) LVOT PGmax 3 mmHg LVEF visual 60 % LVOT PGmean 1 mmHg Right Ventricle Label Value Normal Value TAPSE 0.97 cm Aortic Valve Label Value Normal Value AV DVI 0.5 AV VTI 23.1 cm Mitral Valve Label Value Normal Value MV E Vmax 0.54 m/s MV A Vmax 0.79 m/s MV E/A 0.68 MV E/E' lateral 7.6 MV E' lateral 0.07 m/s Tricuspid Valve Label Value Normal Value RA Pressure 3 mmHg RVSP 30 mmHg TR Vmax 2.59 m/s Valvular Assessment LVOT 0.7 - 1.1 m/sec Aortic Valve 1.0 - 1.7 m/sec Mitral Valve 0.6 - 1.3 m/sec Tricuspid Valve 0.3 - 0.7 m/sec Pulmonic Valve 0.6 - 0.9 m/sec Regurgitation Mild No Mild No Max Velocity 0.81 m/sec 1.62 m/s 0.54m/sec 1.02 m/s Max Gradient 10.00 mmHg 4.00 mmHg Mean Gradient 5.00 mmHg Findings Left Ventricle: The left ventricle is normal size. Global left ventricular systolic function is normal. The EF is 60 % visually. Left ventricular wall thickness is normal. No regional wall motion abnormality. Right Ventricle: The right ventricle appears normal in size. Right ventricular systolic function appears normal. Doppler studies suggest normal right sided pressures. Left Atrium: Watchman device visualized .The left atrium appears normal in size. Right Atrium: The right atrium appears normal in size. Mitral Valve: The mitral valve is normal in mobility and thickness. No mitral regurgitation. Aortic Valve: Focal aortic cusp thickening is noted. Mild aortic valve regurgitation. Tricuspid Valve: Normal tricuspid valve. Mild tricuspid regurgitation. Pulmonic Valve: Normal pulmonary valve. No pulmonary regurgitation. Aorta: The aortic root exhibits normal size. Great Vessels: IVC: Normal size and course of the IVC. Pericardium: There is a moderate circumfrential pericardial effusion. There is also, significant mitral inflow variations consistent with early tamponade physiology. Procedure Staff Reading Group: [facility] Property Consultant: Bryanna Cazares RDCS Ordering Physician: HAKAN Duongally signed by MD Mitesh Vernon on 04/19/2025 at 01:44 PM Limited Transthoracic Echo (TTE) w/wo Contrast, Color Flow, Imaging Agent, Strain, 3D, Bubble Study Result Date: 02/07/2025 1 1 [facility] Heart Station [address] [place] [address] [phone] (fax) Echocardiogram-[facility] Name: KRISTY DOHERTY Study Date: 02/07/2025 08:02 AM B/P: 118 mmHg/85 mmHg HR: 63 bpm Date of : 1955 Location: [facility] Height: 68 in. Age: 69 year(s) Patient Room: 3176 Weight: 186 lb. Gender: Male Patient Status: InPt BSA: 1.98 m2 Indication: Atrial Fibrillation, Pacemaker, s/p 35mm Watchman FLX Examination: Limited Echo, Color flow imaging, Lumason Contrast Image Quality: Fair Patient Consent: Procedure explained to patient Exam Details Contrast: I.V. dose of Lumason Conclusions Left Ventricle: The left ventricle is [...] Aortic Valve: Mild aortic valve regurgitation. Overall C onclusions: Due to suboptimal imaging Lumason contrast was administered for opacification and better delineation of endocardial borders. Well seated 35mm Watchman FLX PRO. Measurements Left VentricleLabel Value Normal Value LVDd, 2D 5.86 cm (4.2cm - 5.9cm) LVDs, 2D 5.21 cm (2.1cm - 4cm) IVSd, 2D 0.91 cm (0.6cm - 1.1cm) LVPWd, 2D 1.06 cm (0.6cm - 1cm) LV Mass, 2D ASE 232.58 g LV Mass Index, 2D ASE 117.5 g/m?? (50g/m?? - 102.4g/m??) RWT, MM 0.36 (0 - 0.42) LVSVI, 2D 20.7 ml/m2 Aorta Label Value Normal Value AoRoot, 2D 3.4 cm (1.4cm - 3.8cm) Valvular Assessment LVOT 0.7 - 1.1 m/sec Aortic Valve1.0 - 1.7 m/sec Mitral Valve 0.6 - 1.3 m/sec Tricuspid Valve 0.3 - 0.7 m/sec Pulmonic Valve 0.6 - 0.9 m/sec Regurgitation Mild trivMil Findings Left Ventricle: The left ventricle is normal size. Global left ventricular systolic function is severely reduced. EF range is estimated at 25 % -30 %. Leftventricular wall thickness is increased. Diffuse global hypokinesis. Right Ventricle: The right ventricle is normal in size. Normal right ventricular systolic function. A pacemaker wire is seen in the right atrium and right ventricle. Left Atrium: The left atrium is normal in size. Right Atrium: The right atrium is normal in size. Mitral Valve: There is nonspecific thickening of the mitral valve leaflet. Trvial to mild mitral regurgitation. Aortic Valve: Focal aortic cusp thickening is noted. Mild aortic valve regurgitation. Tricuspid Valve: Normal tricuspid valve. Pulmonic Valve: Normal pulmonary valve. Aorta: The aortic root exhibits normal size. Great Vessels: IVC: The IVC is normal in size. Pericardium: No pericardial effusion. Procedure Staff Reading Group: [facility] Referring Physician: RUDY KING Property Consultant: SAMI Starr, RDCS Ordering Physician: CHUCK FUNEZ Transesophageal echo (MASON) Result Date: 12/01/2024 1 [facility] Heart Station [address] [place] [address] [phone] (fax) Transesophageal Echocardiogram-[facility] Name: KRISTY DOHERTY Study Date: 12/01/2024 12:00 PM B/P: 134 mmHg/87 mmHg HR: 80 bpm Date of : 1955 Location: [facility] Height: 68 in. Age: 69 year(s) Patient Room: Weight: 194 lb. Gender: Male PatientStatus: OutPt BSA: 2.02 m2 Indication: Atrial Fibrillation, Pre-Watchman Examination: MASON, Color flow imaging Image Quality: Excellent Patient Consent: Informed, written consent was obtained for the procedure Exam Location: A MASON was performed in the [facility] without complications Anesthesia Pharyngeal anesthesia with viscous Lidocaine Conclusions Left Ventricle: The left ventricle is normal size. Global left ventricular systolic function is severely reduced. EF range is estimated at 25 % -30 %. Left ventricular wall thickness is normal. Diffuse global hypokinesis. Right Ventricle: The right ventricle appears normal in size. Normal right ventricular systolic function. Left Atrium: The left a trium is severely enlarged. Left Atrium Appendage: The left atrial appendage is monolobular. Normalleft atrial appendage, no thrombus seen. ROBB measutments [...] 50 micrograms Valvular Assessment LVOT 0.7 - 1.1m/sec Aortic Valve 1.0 - 1.7 m/sec Mitral Valve 0.6 - 1.3 m/sec Tricuspid Valve 0.3 - 0.7 m/sec Pulm onic Valve 0.6 - 0.9 m/sec Regurgitation Mod [...] atrium is severely enlarged. Left Atrium Appendage: Theleft atrial appendage is normal. The left atrial [...] is a minimal pericardial effusion. The Attending Ph ysician was present and personally reviewed the examination with the fellow Procedure Staff ReadingGroup: [facility] Referring Physician: RUDY KING Property Consultant: DORIAN Walker Ordering Physician: Hay William MD No nuclear medicine results found for the past 12 months Relevant Imaging Results XR abdomen 1 view Narrative: XR ABDOMEN 1 VIEW 04/28/2025 12:37 AM CLINICAL INDICATIONS: Abdominal distention COMPARISON: None FINDINGS: Nonobstructive bowel gas pattern. Degenerative changes of the bilateral hips and SI joints. Seminal vesicle/vas deferens calcifications. Left femoral hemodialysis catheter noted. Combined automatic implantable cardiac defibrillator/pacing device leads. No acute abnormality within the visualized chest. Impression: * Nonobstructive bowel gas pattern. Approved by:Phill Orellana 1:10 AM. I, El Gomes,have reviewed the image(s) and agree with the findings in this report. Electronically signed: El Gomes. Assessment: Cardiogenic shock, cardiac index 1.3 L/min/m2, likely secondary to acute heart failure exacerbation Acute right ventricular failure Melanie 0.72 < 1 suggestive of significant RV failure RHC suggestive of biventricular failure Acute on chronic heart failure with reduced ejection fraction s/p ICD placement, NYHA II/III 04/23/2025 echo with EF 20%, severely reduced RV systolic function, mild-moderate MR, mild AV regurg, mild TR, elevated RVSP 49 Non-oliguric acute kidney injury, worsening with decreased urinary output Likely underlying cardiorenal syndrome: type1 Moderate circumferential pericardial effusion s/p RHC and pericardiocentesis (300cc removal) with drain placement on 04/19/25 - unclear etiology, cannot rule out acute pericarditis Pericardial drain removed 04/20 after resolution of effusion on 04/20 echo Repeat echo limited 04/23/2025 with EF 20%, severely reduced RV systolic function, and no inspiratory collapse of IVC (new findings), and minimal pericardial effusion Frequent PVC's and runs of NSVT on telemetry, on amiodarone gtt Paroxysmal A-fib [id number] (heart failure, hypertension, age 65-74) s/p Watchman procedure on 02/06/2025 (due to prior bleeding with eliquis) Nonobstructive coronary artery disease Hyperlipidemia (unspecified) on lipitor 40 Plan: Continue Dobutamine at 2 mcg/Kg/min CRRT by nephrology team Aggressive electrolyte replacement to maintain potassium > 4 and magnesium > 2 Resume colchicine 0.6 mg as dialysis has been initiated. Continue Cardiac medications as tolerated (currently limited by hypotension) Lipitor 40 mg, aspirin 81 mg & Plavix 75 mg Holding: Toprol-XL 12.5 mg daily, Farxiga 10 mg daily, Entresto 97/103 mg b.I.d. & Aldactone 25mg. Cardiology will continue to follow. Please call with any questions. Sagrario Martel MD Cardiovascular disease fellow [facility] Cosigned by Wil Sotomayor MD at 04/29/2025 3:53 PM EDT * Darcy Alfredo, [employer] - 04/28/2025 9:05 AM EDT Respiratory Progress Note Patient Name: Kristy Doherty : 1955 Today's Date: 04/28/2025 No Chest X-ray results found for the past 24 hours The findings from the last RT Protocol Assessment were as follows: Bronchodilator Assessment Grid RR: Less than 20 (Level 1) Dyspnea: No SOB Breath Sounds: Diminished and/or faint wheezes Resp History: Diagnosis pulmonary disease Oxygen to keep SpO2 >/= 92%: 1-3 lpm 25%-35% Peak Flow: N/A Level: Level 2 Aerosolized bronchodilator medication orders and frequency have been revised according to the Respiratory Care Clinical Practice Guidelines. Patient to remain on home therapy: As at home reconcile order with home meds if pulmonary status isstable. Level 1: Every 4 hours PRN for wheezing via nebulizer. Level 2: TID daily and Q4 PRN for wheezing. Level 3: QID and Q4 PRN as needed for wheezing. Level 4: Every 4 hours and as needed for wheezing. Level 5: Stat nebulizer time one and contact prescriber for frequency change. Note - The frequency level of therapy will not be lower than the frequency of home therapy as listed on the medication reconciliation record unless specifically ordered by the prescriber. Identify care plan and goals of therapy and perform ongoing clinical assessment to determine appropriateness, benefit, and improvement during the course of therapy. Patient will be re-evaluated every24 hours. Darcy Alfredo RRT 04/28/2025 * Kurtis Gonzalez MD - 04/28/2025 8:46 AM EDT Images from the original note were not included. Nephrology Progress Note Patient : Kristy Doherty; 69 y.o. Location: 3217/3217-01 Attending: Pepe Anthony MD Admit Date: 04/19/2025 Hospital Day: 9 Reason for Consult: Severe LINDA in setting of Cardiogenic Shock Subjective: History of present illness: Kristy Doherty is a 69 y.o. male with PMHx significant for CAD, Atrial fibrillation s/p Watchman procedure, who was transferred from [place] with initial chief complaint of chest and back pain. The patient was noted to have a percardial effusion and echocardiogram and was taken for emergent pericar diocentesis with RHC and LHC. He had recurrence of his effusion with repeat echo demonstrating reduced RV function, RHC with elevated wedge pressures. Patient is seen and examined in MICU. He is currently receiving lasix 40 mg in addition to 40 received earlier. Plan to give 80 mg BID additional. Urine output this far has been minimal. He has a lanier catheter in place. Denies acute complaints incl uding chest pain and shortness of breath. Interval history: 04/28/25 Kidney Function continued to worsen yesterday afternoon and patient had minimal urine output so decision was made with ICU and our team to start patient on CRRT after Trialysis Catheter was placed Acidosis has improved somewhat to 16 from Bicarb of 13 on previous lab check S Cr has also improved somewhat from 3.55 to 3.23 Objective: Input/Output: Intake/Output Summary (Last 24 hours) at 04/28/2025 0846 Last data filed at 04/28/2025 0700 Gross per 24 hour Intake 3884.06 ml Output 2403 ml Net 1481.06 ml I/O last 3 completed shifts: In: 4724.7 (55.5 mL/kg) [P.O.:300; I.V.:3874.7 (45.5 mL/kg); IV Piggyback:550] Out: 2653 (31.2 mL/kg) [Urine:565 (0.2 mL/kg/hr); Other:2087] Weight: 85.1 kg Vital signs: Temperature: Temp: 35.3 ??C (95.5 ??F) TMax: Temp (24hrs), Av.3 ??C (95.5 ??F), Min:33 ??C (91.4 ??F), Max:36.5 ??C (97.7 ??F) Respirations: Resp: 23 Pulse: Heart Rate: 79 BP: BP: 77/50 BP Range: No data recorded. No data recorded. Wt Readings from Last 3 Encounters: 04/28/25 85.1 kg (187 lb 9.8 oz) 04/03/25 84.8 kg (187 lb) 02/26/25 85.7 kg (189 lb) Physical Exam Constitutional: General: He is awake. He is not in acute distress. Cardiovascular: Rate and Rhythm: Normal rate. Rhythm irregular. Pulmonary: Effort: Pulmonary effort is normal. Breath sounds: Normal breath sounds. Abdominal: General: There is distension. Musculoskeletal: Right lower leg: Edema present. Left lower leg: Edema present. Neurological: General: No focal deficit present. Mental Status: He is alert. Psychiatric: Attention and Perception: Attention normal. Mood and Affect: Mood normal. Speech: Speech normal. Behavior: Behavior is cooperative. Current Medications: Scheduled Meds: allopurinol, 300 mg, oral, Daily aspirin, 81 mg, oral, Daily with breakfast atorvastatin, 40 mg, oral, Nightly clopidogrel, 75 mg, oral, Daily [Held by provider] colchicine, 0.6 mg, oral, BID [Held by provider] dapagliflozin propanediol, 10 mg, oral, Once Daily enoxaparin, 40 mg, subcutaneous, Daily [Held by provider] furosemide, 80 mg, intravenous, q12h hydrocortisone sodium succinate, 50 mg, intravenous, q6h ABILIO insulin lispro, 0-5 Units, subcutaneous, TID with meals And insulin lispro, 0-4 Units, subcutaneous, Nightly ipratropium-albuteroL, 3 mL, nebulization, q6h while awake [Held by provider] metoprolol succinate XL, 12.5 mg, oral, Daily mometasone-formoterol, 2 puff, inhalation, BID sodium bicarbonate, 1,300 mg, oral, BID [Held by provider] spironolactone, 25 mg, oral, Daily Continuous Infusions: amiodarone, 0.5 mg/min, Last Rate: 0.5 mg/min (04/28/25 0700) dialysate 3K with bicarb and calcium 5000 mL, 2,000 mL/hr, Last Rate: Stopped (04/28/25613) DOBUTamine, 2.5-15 mcg/kg/min, Last Rate: 2 mcg/kg/min (04/28/25 0700) epoprostenol (Veletri) 500 mcg in sodium chloride 0.9 % 100 mL (5 mcg/mL) infusion, 2 ng/kg/min [Held by provider] milrinone, 0.25 mcg/kg/min, Last Rate: Stopped (04/26/25 1112) norEPINEPHrine, 0.01-2 mcg/kg/min, Last Rate: Stopped (04/28/25 0530) sodium bicarbonate 75 mEq in sodium chloride 0.45 % 1,000 mL infusion, 200 mL/hr, Last Rate: Stopped (04/28/25 0614) vasopressin, 0.04 Units/min, Last Rate: Stopped (04/28/25 0340) PRN Meds: PRN medications: acetaminophen, albuterol, alteplase, glucose OR dextrose 50 % in water (D50W), heparin (porcine), ipratropium-albuteroL, melatonin, naloxone OR naloxone OR naloxone, ondansetron ODT OR ondansetron, [Held by provider] sennosides-docusate sodium, simethicone Outpatient Medications: Medication Documentation Review Audit Reviewed by Karrie Garza RN (Registered Nurse) on 04/19/25 at 1111 Medication Order Taking? Sig Documenting Provider Last Dose Status albuterol 90 mcg/actuation inhaler [id number] Inhale 1 puff 2 times daily. Historical ProviderMD Active allopurinol (Zyloprim) 300 mg tablet [id number] Yes Take 300 mg by mouth in the morning. Historical ProviderMD 04/18/2025 Morning Active amoxicillin (Amoxil) 500 mg tablet [id number] No Take 4 tablets (2,000 mg) by mouth 1 (one) time if needed (30-60 minute prior to dental procedures) for up to 20 doses. Patient not taking: Reported on 04/19/2025 Hay William MD Unknown Active aspirin 81 mg chewable tablet [id number] Yes Chew 1 tablet (81 mg) with breakfast. Hay William MD 04/18/2025 Morning Active atorvastatin (Lipitor) 40 mg tablet [id number] Yes Take 1 tablet (40 mg) by mouth at bedtime. Hay William MD 04/18/2025 Bedtime Active clopidogrel (Plavix) 75 mg tablet [id number] Yes Take 1 tablet (75 mg) by mouth in the morning. Hay William MD 04/18/2025 Morning Active dapagliflozin propanediol (Farxiga) 10 mg [id number] Yes Take 1 tablet (10 mg) by mouth once daily asdirected. Shania Chauhan CNP 04/18/2025 Morning Active Dupixent Syringe 300 mg/2 mL syringe injection [id number] No Inject 300 mg under the skin every 14 (fourteen) days. Historical ProviderMD 04/07/2025 Active fluticasone (Flonase) 50 mcg/actuation nasal spray [id number] Yes Administer 1 spray into each nostril two times daily. Shake gently. Before first use, prime pump. After use, clean tip and replace cap.Historical ProviderMD 04/18/2025 Bedtime Active fluticasone propion-salmeteroL (Advair Diskus) 500-50 mcg/dose diskus inhaler [id number] Yes Inhale 1puff two times daily. Historical ProviderMD 04/18/2025 Bedtime Active metoprolol succinate XL (Toprol-XL) 50 mg 24 hr tablet [id number] Yes Take 1 tablet (50 mg) by mouth once daily as directed. Do not crush or chew. Hay William MD 04/18/2025 Morning Active sacubitril-valsartan (Entresto) 97-103 mg tablet [id number] Yes Take 1 tablet by mouth two times daily. Hay William MD 04/18/2025 Bedtime Active spironolactone (Aldactone) 25 mg tablet [id number] Yes Take 1 tablet (25 mg) by mouth in the morning.Hay William MD 04/18/2025 Morning Active Labs: I have reviewed the patient's most recent labs as listed below: Chemistry: Lab Results Component Value Date NA 129 (L) 04/28/2025 K 4.3 04/28/2025 CL 100 04/28/2025 CO2 16 (L) 04/28/2025 ANIONGAP 17 04/28/2025 BUN 41 (H) 04/28/2025 CREATININE 3.23 (H) 04/28/2025 EGFR 20.0 (L) 04/28/2025 CALCIUM 7.0 (L) 04/28/2025 MG 1.9 04/28/2025 PHOS 4.4 04/28/2025 ALBUMIN 3.7 04/23/2025 PROT 6.8 04/23/2025 AST 34 04/23/2025 ALT 18 04/23/2025 BILITOT 0.5 04/23/2025 ALKPHOS 48 04/23/2025 Hematology & Iron studies: Lab Results Component Value Date WBC 19.72 (H) 04/28/2025 HGB 9.4 (L) 04/28/2025 HCT 27.2 (L) 04/28/2025 MCV 93.8 04/28/2025 PLT 163 04/28/2025 Urine chemistry Lab Results Component Value Date PROTUR Negative 04/26/2025 CREATUR 83.0 04/26/2025 NAUR 92 04/26/2025 UREAUR 237 04/26/2025 Urinalysis & Microscopy: Lab Results Component Value Date COLORU Light-Yellow 04/26/2025 CLARITYU Clear 04/26/2025 SPECGRAVU 1.013 04/26/2025 LOGAN 5.0 04/26/2025 PROTUR Negative 04/26/2025 LEUKOCYTESU Negative 04/26/2025 NITRITEU Negative 04/26/2025 GLUCOSEU 250 (A) 04/26/2025 KETONESU Negative 04/26/2025 UROBILINOGEN Normal 04/26/2025 BLOODU Negative 04/26/2025 Urine Eosinophils: No components found for: UEOS Serology & Other labs: Lab Results Component Value Date ANATITER <1:40 04/19/2025 BNP: No results found for: BNP COLLIN: No results found for: COLLIN SPEP:No results found for: PROT UPEP: No components found for: LABPE C3: No results found for: C3 C4: No results found for: C4 MPO ANCA: No components found for: MPO PR3 ANCA: No components found for: PR3 Anti-GBM: No components found for: GBMABIGG Hep BsAg: No results found for: HEPBSAG Hep C AB: No results found for: HEPCAB Radiology: XR abdomen 1 view Narrative: XR ABDOMEN 1 VIEW 04/28/2025 12:37 AM CLINICAL INDICATIONS: Abdominal distention COMPARISON: None FINDINGS: Nonobstructive bowel gas pattern. Degenerative changes of the bilateral hips and SI joints. Seminal vesicle/vas deferens calcifications. Left femoral hemodialysis catheter noted. Combined automatic implantable cardiac defibrillator/pacing device leads. No acute abnormality within the visualized chest. Impression: * Nonobstructive bowel gas pattern. Approved by:Phill Orellana 1:10 AM. I, El Gomes,have reviewed the image(s) and agree with the findings in this report. Electronically signed: El Gomes. Assessment: Acute Kidney Injury, likely combination of ATN due to altered hemodynamics in setting of tamponade and contrast nephropathy Electrolyte Abnormalities (Hyponatremia, Hypokalemia) Metabolic acidosis Hypervolemia HFrEF- RHC suggestive of biventricular failure. EF 20%, RV systolic function severely reduced per echo 04/23/2025 Previously on IV milrinone, switched to dobutamine by Cardiology Atrial fibrillation s/p Watchman- on amiodarone Normocytic anemia Essential hypertension Plan: Patient continues to requires CRRT because of LINDA in setting of Cardiogenic Shock s/p Emergent Pericardiocentesis (eg, Remains anuric and in shock requiring pressors, severely acidotic in shock) On CRRT: Continuous venovenous hemodialysis [CVVHD] modality Vascular access: Dialysate: 3K bath and rate of 2 L/h (around 25 ml/kg/h) Blood flow: 200 mL/hr Ultrafiltration: To keep fluid balance even, then attempt a negative fluid balance if tolerated Prefilter IV fluids: Sodium Bicarb 150 mEq in Sterile Water at 200 mL/hr Post filter IV fluids: None at this time Adjust doses of medications to CRRT NOT for intermittent hemodialysis or CKD stage 5 Monitor electrolytes: If serum potassium <4.0, IV KCl can be administered separately (post filter), please coordinate with nephrology If serum potassium >5.0, reduce dialysate potassium concentration by switching to lower K bath: eg, 2K from 3k. Please contact nephrology for proper adjustment Monitor phosphorus: May drop significantly and contribute to worsening respiratory muscle function.Replace aggressively Avoid nephrotoxic agents Thank you for the consultation. Please do not hesitate to contact us for any questions/concerns. Abrilll continue to follow along with you. Kurtis Gonzalez MD PGY-4 Nephrology Fellow Cosigned by Zhen Feldman MD at 04/28/2025 3:58 PM EDT Associated attestation - Zhen Feldman MD - 04/28/2025 3:58 PM EDT By using the attestations below, the signing clinician agrees that I have read and verify that thedocumentation has been personally reviewed by me and ensure that the documentation accurately reflects the encounter. GC: I personally saw this patient on the day of the encounter, performed the gonzáles portion(s) of the service and participated in the management and confirm the resident's documentation. Please note there may be an additional personal documentation from me. Patient seen and examined multiple times today receiving CRRT / CVVHD. * Marta Rene, DO - 04/28/2025 8:23 AM EDT Images from the original note were not included. Medical ICU Progress Note Patient - Kristy Doherty Age - 69 y[facility] 1955 [id number] Date of Admission - 04/19/2025 10:46 AM HPI/Hospital Course Subjective Kristy Dohrety is an 69 y.o. male who came from [place] with chest pain with radiation to neck andback. Past medical history of heart failure with reduced ejection fraction, hypertension, coronary artery disease, cardiomyopathy nonischemic (AICD placed), hyperlipidemia, [facility] , asthma. Patient presents from [place] with chest pain radiating to the neck and back. He states that chest pain started last night was a constant sharp pain all over his chest. He states that the pain radiated to his neck and back rated pain a 5 out of 10. Patient stated when he was on his right side pain in his neck improved. At outside hospital patient was found to have small pericardial effusion on CT as well as potential atelectasis versus pneumonia. He also had a sodium of 123. His troponins were downtrending and from 11.5-10.5. Patient was also hypotensive at outside hospital which he states he has been hypotensive now for the past 2 weeks. At bedside patientstates that chest pain has improved and is now a 2 out of 10. He still states that chest pain radiates up to his neck. Along with chest pain he complains of fever, sweats, chest pain, shortness of breath, fatigue, weakness. Patient denies chills, palpitations, leg swelling, wheezing abdominal pain,nausea, vomiting, diarrhea, lightheadedness, dizziness, headache, visual changes. Patient was then taken to the catheterization lab for emergent pericardiocentesis due to echo showing signs of cardiac tamponade. A right heart cath, left heart cath and pericardiocentesis were performed. They able to successfully drain the pericardial fluid with significant proven in blood pressure following pericardiocentesis and drain placement. There was minimal drain output and repeat echo showed no pericardial effusions. The patient was being managed by the hospitalist service and plans for discharge were in place, however the patient had recurrence of his pericardial effusion along with hypotension. Repeat echoes showed worsening ejection fraction and severely reduced RV systolic function with no inspiratory collapse of the IVC. Patient was taken back to the catheterization lab for a right heart cath which demonstrated elevated wedge pressure and RV pressures. A Assawoman-Shannan catheter was placed for further monitoring and the patient was transferred to the medical ICU. SUBJECTIVE Patient seen and examined at the bedside. He denies any chest pain, shortness of breath, or cough. CRRT overnight. Only on dobutamine, off levo and vaso with MAP in 80s. Monitoirng closely. OBJECTIVE Vitals height is 1.727 m (5' 8 ) and weight is 85.1 kg (187 lb 9.8 oz). His temperature is 35.3 ??C (95.5 ??F). His blood pressure is 77/50 and his pulse is 79. His respiration is 23 and oxygen saturation is 99%. Temp: [33 ??C (91.4 ??F)-36.5 ??C (97.7 ??F)] 35.3 ??C (95.5 ??F) Heart Rate: [78-109] 79 Resp: [18-31] 23 Arterial Line BP 1: (91-120)/(56-73) 120/64 Physical Exam: Physical Exam Constitutional: General: He is not in acute distress. Appearance: Normal appearance. He is not ill-appearing. Eyes: Extraocular Movements: Extraocular movements intact. Conjunctiva/sclera: Conjunctivae normal. Pupils: Pupils are equal, round, and reactive to light. Cardiovascular: Rate and Rhythm: Normal rate. Rhythm irregular. Pulses: Normal pulses. Pulmonary: Effort: Pulmonary effort is normal. Breath sounds: Normal breath sounds. Abdominal: General: Abdomen is flat. Palpations: Abdomen is soft. Neurological: General: No focal deficit present. Mental Status: He is alert and oriented to person, place, and time. Weight: Admission weight: 82.6 kg (182 lb) Wt Readings from Last 1 Encounters: 04/28/25 85.1 kg (187 lb 9.8 oz) Input/Output: Intake/Output Summary (Last 24 hours) at 04/28/2025 0823 Last data filed at 04/28/2025 0700 Gross per 24 hour Intake 3884.06 ml Output 2403 ml Net 1481.06 ml Ventilator: Lab Results ABG: CBC: Results from last 7 days Lab Units 04/28/25 0321 04/27/25 1957 04/27/25 0536 04/26/25 0305 WBC AUTO 10*3/uL 19.72* -- 8.21 6.84 HEMOGLOBIN g/dL 9.4* 10.6* 11.2* 10.2* HEMATOCRIT % 27.2* 30.2* 32.0* 29.3* PLATELETS AUTO 10*3/uL 163 -- 287 233 Coagulation: Metabolic Panel: Results from last 7 days Lab Units 04/28/25 0306 04/28/25 0006 04/27/251956 POTASSIUM mmol/L 4.3 4.1 4.6 CHLORIDE mmol/L 100 101 98 CO2 mmol/L 16* 13* 15* BUN mg/dL 41* 44* 47* CREATININE mg/dL 3.23* 3.55* 3.53* GLUCOSE mg/dL 151* 161* 140* CALCIUM mg/dL 7.0* 6.1* 6.5* MAGNESIUM mg/dL 1.9 1.9 1.8* Liver Panel: Results from last 7 days Lab Units 04/23/25 0502 ALBUMIN g/dL 3.7 BILIRUBIN TOTAL mg/dL 0.5 ALT U/L 18 AST U/L 34 ALK PHOS U/L 48 Glucose: Hgb A1c: Cardiac: No lab exists for component: TROPI , TROPONIN Anemia Labs: Lipid Panel: Results from last 7 days Lab Units 04/24/25 0407 CHOLESTEROL mg/dL 98* HDL mg/dL 29 LDL CALC mg/dL 54 TRIGLYCERIDES mg/dL 75 Urine Labs: Lab Results Component Value Date UROBILINOGEN Normal 04/26/2025 Additional Labs: No lab exists for component: LACTICACID , PROCALCITON Radiology XR abdomen 1 view Narrative: XR ABDOMEN 1 VIEW 04/28/2025 12:37 AM CLINICAL INDICATIONS: Abdominal distention COMPARISON: None FINDINGS: Nonobstructive bowel gas pattern. Degenerative changes of the bilateral hips and SI joints. Seminal vesicle/vas deferens calcifications. Left femoral hemodialysis catheter noted. Combined automatic implantable cardiac defibrillator/pacing device leads. No acute abnormality within the visualized chest. Impression: * Nonobstructive bowel gas pattern. Approved by:Phill Orellana 1:10 AM. I, El Gomes,have reviewed the image(s) and agree with the findings in this report. Electronically signed: El Gomes. Cultures Lab Results Component Value Date BLOOD CULTURE No growth at 5 days 04/20/2025 BLOOD CULTURE No growth at 5 days 04/20/2025 Medications Scheduled: allopurinol, 300 mg, oral, Daily aspirin, 81 mg, oral, Daily with breakfast atorvastatin, 40 mg, oral, Nightly clopidogrel, 75 mg, oral, Daily [Held by provider] colchicine, 0.6 mg, oral, BID [Held by provider] dapagliflozin propanediol, 10 mg, oral, Once Daily enoxaparin, 40 mg, subcutaneous, Daily [Held by provider] furosemide, 80 mg, intravenous, q12h hydrocortisone sodium succinate, 50 mg, intravenous, q6h ABILIO insulin lispro, 0-5 Units, subcutaneous, TID with meals And insulin lispro, 0-4 Units, subcutaneous, Nightly ipratropium-albuteroL, 3 mL, nebulization, q6h while awake [Held by provider] metoprolol succinate XL, 12.5 mg, oral, Daily mometasone-formoterol, 2 puff, inhalation, BID sodium bicarbonate, 1,300 mg, oral, BID [Held by provider] spironolactone, 25 mg, oral, Daily Infusions: amiodarone, 0.5 mg/min, Last Rate: 0.5 mg/min (04/28/25 0700) dialysate 3K with bicarb and calcium 5000 mL, 2,000 mL/hr, Last Rate: Stopped (04/28/25 0614) DOBUTamine, 2.5-15 mcg/kg/min, Last Rate: 2 mcg/kg/min (04/28/25 0700) [Held by provider] milrinone, 0.25 mcg/kg/min, Last Rate: Stopped (04/26/25 1112) norEPINEPHrine, 0.01-2 mcg/kg/min, Last Rate: Stopped (04/28/25 0530) sodium bicarbonate 75 mEq in sodium chloride 0.45 % 1,000 mL infusion, 200 mL/hr, Last Rate: Stopped (04/28/25 0614) vasopressin, 0.04 Units/min, Last Rate: Stopped (04/28/25 0340) As Needed: PRN medications: acetaminophen, albuterol, alteplase, glucose OR dextrose 50 % in water (D50W),heparin (porcine), ipratropium-albuteroL, melatonin, naloxone OR naloxone OR naloxone, ondansetron ODT OR ondansetron, [Held by provider] sennosides-docusate sodium, simethicone ASSESSMENT AND PLAN Assessment Cardiogenic shock secondary to circumferential pericardial effusion and cardiac tamponade Chronic heart failure with reduced ejection fraction EF 20% s/p ICD Acute pericarditis Paroxysmal atrial fibrillation Frequent PVCs HTN HLD Plan Cardiogenic shock secondary to circumferential pericardial effusion and cardiac tamponade Chronic heart failure with reduced ejection fraction EF 20% s/p ICD Patient had 300 cc removal with drain placement on 04/19, repeat echo on 04/23 showed severely reduced EF 20% and RV systolic function along with no inspiratory collapse of IVC Pericardial drain was removed on 04/20 due to resolution of effusion Assawoman Shannan placed on 04/24, has showed improvement in CO and CI--removed as hematoma was forming PA 38/24 PCWP 21 CO 4.2, CI 3.5 Melanie 0.72 Patient is currently on Dobutamine Added on hydrocortisone Good urine output 2.4L, lasix held as CRRT was started Will restart GDMT as appropriate once stable Appreciate cardiology input Acute renal injury, worsening CRRT, L femoral trialysis placed 04/27 Metabolic acidosis Patient has had increase in creatinine to 3.36 from baseline Likely is due to combination of shock, cardiorenal syndrome, along with receiving IV contrast a couple days ago. Anticipate improvement once blood pressure stabilizes Bedside bladder ultrasound does not show any acute retention/obstruction Urine studies ordered: FeNa 2.6% showing ATN Patient showing signs of early/minimal pulmonary edema from volume overload Nephrology consulted Stopped lasix IV 80mg BID and IV drip Started CRRT as function isn't improving Urine output has improved 2.4L Hyponatremia Likely due to volume overload from cardiogenic shock along with aggressive diuresis Sodium is 130, continuing to trend Urine studies ordered Possible acute pericarditis Could explain the pericardial effusion and tamponade Was on colchicine, but held due to kidney function decline Paroxysmal atrial fibrillation. Controlled CHADSVASC 3 (HTN, CHF, age) Had Watchamn on 01/2025 due to prior Eliquis bleeding Currently on aspirin and Plavix, continuing Rate controlled on Toprol 12.5 BID, continue as BP allows Started amiodarone drip, continuing Frequent PVCs on tele Likely is due to tamponade and current cardiogenic shock Toprol for suppression Continue tele and monitoring Last ABG: None Fluids: CRRT Pressor support: Dobutamine, Lines (location & placement): yolande Mckeon DVT prophylaxis: Heparin subq Diet: Regular Code Status: FULL This progress note was completed using a voice commodities requirements analyst system. Every effort was made to ensure accuracy. However, inadvertent computerized commodities requirements analyst errors may be present. Marta Rene DO PGY1 EM Resident 04/28/25 8:23 AM Cosigned by Pepe Anthony MD at 04/28/2025 6:26 PM EDT Associated attestation - Pepe Anthony MD - 04/28/2025 6:26 PM EDT I evaluated the patient with the resident/fellow Marta Rene DO on the same day, agree with thefindings as described with the following additions or corrections: Cardiogenic shock, on dobutamine. Able to wean down on Levophed. Maintain MAP above 65. Assawoman was taken out yesterday. Cardiorenal syndrome with ATN, refractory to diuretic therapy, started on CVVHD, patient is tolerating volume removal well. Continue 100-150 an hour if tolerates well. Monitor electrolytes while on dialysis. Patient has leukocytosis, no clinical signs of infection, continue off antibiotics. Metabolic acidosis, secondary to acute renal failure, non-anion gap, on hemodialysis. Poor prognosis with severely low ejection fraction. I personally provided direct critical care services consisting of decision making of high complexity to assess, and support: Cardiogenic shock Acute renal failure High risk medication infusion of dobutamine and to prevent further deterioration for the organ dysfunction. Critical Care minutes were 35, which excludes time performing separately billed procedures, updating family, and teaching. * Zhen Feldman MD - 04/27/2025 9:17 AM EDT Images from the original note were not included. Nephrology Consult Note Patient : Kristy Doherty; 69 y.o. Location: [id number]/3217-01 Attending: Pepe Anthony MD Admit Date: 04/19/2025 Hospital Day: 8 Reason for Consult: Acute Kidney Injury. History of Present Illness: Kristy Doherty is a 69 y.o. male with PMHx significant for CAD, Atrial fibrillation s/p Watchman procedure, who was transferred from [place] with initial chief complaint of chest and back pain. The patient was noted to have a percardial effusion and echocardiogram and was taken for emergent pericar diocentesis with RHC and LHC. He had recurrence of his effusion with repeat echo demonstrating reduced RV function, RHC with elevated wedge pressures. Patient is seen and examined in MICU. He is currently receiving lasix 40 mg in addition to 40 received earlier. Plan to give 80 mg BID additional. Urine output this far has been minimal. He has a lanier catheter in place. Denies acute complaints incl uding chest pain and shortness of breath. Interval History: 04/27/25 The patient was seen and evaluated in his room at bedside. He states he is tired, as he only slept about 2 hours last night. He reports some abdominal pain and abdominal distension as well. He reports increased flatus. He states he continues making urine and denies any dysuria or hematuria. He reports he hasn't been drinking much and yesterday ate only fruit. He reports dyspnea but is at his baseline. Denies fevers, chills, chest pain, nausea, vomiting, diarrhea. Yesterday lasix 80mg IV BID wasswitched to lasix IV drip 40mg/hr. Urine output yesterday was measured at 880mL. He was +556 Net. Labs today show Na 127, K 4.5, bicarb 16, creatinine 3.03, BUN 41, Ca 7.1, Hgb 11.2. Review of Systems: Review of Systems Constitutional: Negative for chills and fever. Respiratory: Negative for shortness of breath. Cardiovascular: Negative for chest pain and palpitations. Gastrointestinal: Positive for abdominal distention and abdominal pain. Negative for diarrhea. Genitourinary: Negative for difficulty urinating, dysuria, frequency, hematuria and urgency. Input/Output: I/O last 3 completed shifts: In: 2170.3 (26.3 mL/kg) [I.V.:2120.3 (25.7 mL/kg); IV Piggyback:50] Out: 1030 (12.5 mL/kg) [Urine:1030 (0.3 mL/kg/hr)] Weight: 82.4 kg Vital Signs: Temperature: Temp: 36.5 ??C (97.7 ??F) TMax: No data recorded. Respirations: Resp: 20 Pulse: Heart Rate: 104 BP: BP: 77/50 BP Range: No data recorded. No data recorded. Wt Readings from Last 3 Encounters: 04/27/25 82.4 kg (181 lb 10.5 oz) 04/03/25 84.8 kg (187 lb) 02/26/25 85.7 kg (189 lb) Physical Examination: Physical Exam Constitutional: General: He is awake. He is not in acute distress. Cardiovascular: Rate and Rhythm: Normal rate. Rhythm irregular. Pulmonary: Effort: Pulmonary effort is normal. Breath sounds: Normal breath sounds. Abdominal: General: There is distension. Tenderness: There is abdominal tenderness in the right upper quadrant. Comments: Tympanic on percussion Musculoskeletal: Right lower leg: Edema present. Left lower leg: Edema present. Neurological: General: No focal deficit present. Mental Status: He is alert. Psychiatric: Attention and Perception: Attention normal. Mood and Affect: Mood normal. Speech: Speech normal. Behavior: Behavior is cooperative. Labs: Chemistry: Lab Results Component Value Date NA 127 (L) 04/27/2025 K 4.5 04/27/2025 CL 98 04/27/2025 CO2 16 (L) 04/27/2025 ANIONGAP 18 04/27/2025 BUN 41 (H) 04/27/2025 CREATININE 3.03 (H) 04/27/2025 EGFR 21.5 (L) 04/27/2025 CALCIUM 7.1 (L) 04/27/2025 MG 1.9 04/27/2025 PHOS 3.5 04/27/2025 ALBUMIN 3.7 04/23/2025 PROT 6.8 04/23/2025 AST 34 04/23/2025 ALT 18 04/23/2025 BILITOT 0.5 04/23/2025 ALKPHOS 48 04/23/2025 Hematology & Iron studies: Lab Results Component Value Date WBC 8.21 04/27/2025 HGB 11.2 (L) 04/27/2025 HCT 32.0 (L) 04/27/2025 MCV 91.4 04/27/2025 PLT 287 04/27/2025 Urine chemistry: Lab Results Component Value Date PROTUR Negative 04/26/2025 CREATUR 83.0 04/26/2025 NAUR 92 04/26/2025 UREAUR 237 04/26/2025 Urinalysis & Microscopy: Lab Results Component Value Date COLORU Light-Yellow 04/26/2025 CLARITYU Clear 04/26/2025 SPECGRAVU 1.013 04/26/2025 LOGAN 5.0 04/26/2025 PROTUR Negative 04/26/2025 LEUKOCYTESU Negative 04/26/2025 NITRITEU Negative 04/26/2025 GLUCOSEU 250 (A) 04/26/2025 KETONESU Negative 04/26/2025 UROBILINOGEN Normal 04/26/2025 BLOODU Negative 04/26/2025 Urine Eosinophils: No components found for: UEOS Serology & Other labs: BNP: No results found for: BNP COLLIN: No results found for: COLLIN SPEP:No results found for: PROT UPEP: No components found for: LABPE C3: No results found for: C3 C4: No results found for: C4 MPO ANCA: No components found for: MPO PR3 ANCA: No components found for: PR3 Anti-GBM: No components found for: GBMABIGG Hep BsAg: No results found for: HEPBSAG Hep C AB: No results found for: HEPCAB Outpatient Medications & Allergies: Medication Documentation Review Audit Reviewed by Karrie Garza RN (Registered Nurse) on 04/19/25 at 1111 Medication Order Taking? Sig Documenting Provider Last Dose Status albuterol 90 mcg/actuation inhaler [id number] Inhale 1 puff 2 times daily. Historical ProviderMD Active allopurinol (Zyloprim) 300 mg tablet [id number] Yes Take 300 mg by mouth in the morning. German ProviderMD 04/18/2025 Morning Active amoxicillin (Amoxil) 500 mg tablet [id number] No Take 4 tablets (2,000 mg) by mouth 1 (one) time if needed (30-60 minute prior to dental procedures) for up to 20 doses. Patient not taking: Reported on 04/19/2025 Hay William MD Unknown Active aspirin 81 mg chewable tablet [id number] Yes Chew 1 tablet (81 mg) with breakfast. Hay William MD 04/18/2025 Morning Active atorvastatin (Lipitor) 40 mg tablet [id number] Yes Take 1 tablet (40 mg) by mouth at bedtime. Hay William MD 04/18/2025 Bedtime Active clopidogrel (Plavix) 75 mg tablet [id number] Yes Take 1 tablet (75 mg) by mouth in the morning. Hay William MD 04/18/2025 Morning Active dapagliflozin propanediol (Farxiga) 10 mg [id number] Yes Take 1 tablet (10 mg) by mouth once daily asdirected. Shania Chauhan CNP 04/18/2025 Morning Active Dupixent Syringe 300 mg/2 mL syringe injection [id number] No Inject 300 mg under the skin every 14 (fourteen) days. German ProviderMD 04/07/2025 Active fluticasone (Flonase) 50 mcg/actuation nasal spray [id number] Yes Administer 1 spray into each nostril two times daily. Shake gently. Before first use, prime pump. After use, clean tip and replace cap.German ProviderMD 04/18/2025 Bedtime Active fluticasone propion-salmeteroL (Advair Diskus) 500-50 mcg/dose diskus inhaler [id number] Yes Inhale 1puff two times daily. German ProviderMD 04/18/2025 Bedtime Active metoprolol succinate XL (Toprol-XL) 50 mg 24 hr tablet [id number] Yes Take 1 tablet (50 mg) by mouth once daily as directed. Do not crush or chew. Hay William MD 04/18/2025 Morning Active sacubitril-valsartan (Entresto) 97-103 mg tablet [id number] Yes Take 1 tablet by mouth two times daily. Hay William MD 04/18/2025 Bedtime Active spironolactone (Aldactone) 25 mg tablet [id number] Yes Take 1 tablet (25 mg) by mouth in the morning.Hay William MD 04/18/2025 Morning Active No Known Allergies Current Inpatient Medications: Scheduled Meds: allopurinol, 300 mg, oral, Daily aspirin, 81 mg, oral, Daily with breakfast atorvastatin, 40 mg, oral, Nightly clopidogrel, 75 mg, oral, Daily [Held by provider] colchicine, 0.6 mg, oral, BID [Held by provider] dapagliflozin propanediol, 10 mg, oral, Once Daily enoxaparin, 40 mg, subcutaneous, Daily [Held by provider] furosemide, 80 mg, intravenous, q12h hydrocortisone sodium succinate, 50 mg, intravenous, q6h ABILIO insulin lispro, 0-5 Units, subcutaneous, TID with meals And insulin lispro, 0-4 Units, subcutaneous, Nightly [Held by provider] metoprolol succinate XL, 12.5 mg, oral, Daily mometasone-formoterol, 2 puff, inhalation, BID [Held by provider] spironolactone, 25 mg, oral, Daily Continuous Infusions: amiodarone, 0.5 mg/min, Last Rate: 0.5 mg/min (04/27/25 07) DOBUTamine, 2.5-15 mcg/kg/min, Last Rate: 2 mcg/kg/min (04/27/25 07) furosemide, 40 mg/hr, Last Rate: 40 mg/hr (04/27/25699) [Held by provider] milrinone, 0.25 mcg/kg/min, Last Rate: Stopped (04/26/25 1112) norEPINEPHrine, 0.01-2 mcg/kg/min, Last Rate: 0.26 mcg/kg/min (04/27/25 0700) PRN Meds: PRN medications: acetaminophen, albuterol, glucose OR dextrose 50 % in water (D50W), melatonin,naloxone OR naloxone OR naloxone, ondansetron ODT OR ondansetron, [Held by provider] sennosides-docusate sodium, simethicone Past Medical/Surgical/Social/Family History: Past Medical History: Diagnosis Date Asthma 07/29/2012 CHF (congestive heart failure) (CMS/HCC) Coronary artery disease History of malignant neoplasm of prostate 07/03/2022 Hypertension 07/03/2022 Past Surgical History: Procedure Laterality Date BAND HEMORRHOIDECTOMY CARDIAC CATHETERIZATION PROSTATECTOMY SINUS SURGERY Social History Socioeconomic History Marital status: Single Spouse name: Not on file Number of children: Not on file Years of education: Not on file Highest education level: Not on file Occupational History Not on file Tobacco Use Smoking status: Former Types: Cigarettes Smokeless tobacco: Never Substance and Sexual Activity Alcohol use: Yes Alcohol/week: 14.0 standard drinks of alcohol Types: 14 Cans of beer per week Comment: occasional Drug use: Never Sexual activity: Defer Other Topics Concern Not on file Social History Narrative Not on file Social Drivers of Health Financial Resource Strain: Low Risk (04/19/2025) Overall Financial Resource Strain (CARDIA) Difficulty of Paying Living Expenses: Not hard at all Food Insecurity: No Food Insecurity (04/19/2025) Hunger Vital Sign Worried About Running Out of Food in the Last Year: Never true Ran Out of Food in the Last Year: Not on file Transportation Needs: No Transportation Needs (04/19/2025) Transportation Lack of Transportation (Medical): No Lack of Transportation (Non-Medical): Not on file Physical Activity: Not on file Stress: Not on file Social Connections: Not on file Intimate Partner Violence: Unknown (04/19/2025) Humiliation, Afraid, Rape, and Kick questionnaire Fear of Current or Ex-Partner: No Emotionally Abused: Not on file Physically Abused: Not on file Sexually Abused: Not on file Housing Stability: Low Risk (04/19/2025) Housing Stability Vital Sign Unable to Pay for Housing in the Last Year: No Number of Times Moved in the Last Year: Not on file Homeless in the Last Year: No Family History Problem Relation Name Age of Onset Other (pacemaker) Mother Stroke Mother Emphysema Father Radiology: === 04/19/25 === XR CHEST 1 VIEW - Impression - Tip of the Assawoman-Shannan catheter appears to be in the right main pulmonary artery. No new acute pulmonary abnormalities displayed. Electronically signed: Ralph Mcgovern. === 04/19/25 === CTA CHEST W IV CONTRAST - Impression - * No central pulmonary embolus. * Small bilateral pleural effusions. * Enlarged main pulmonary artery suggestive of pulmonary arterial hypertension. Reflux of contrast into the suprahepatic IVC suggestive of right heart dysfunction. Approved by:Benedict Katz04/23/2025 5:40 PM. I, Howie Velasquez,have reviewed the image(s) and agree with the findings in this report. Electronically signed: Howie Velasquez. Assessment: Acute Kidney Injury, likely combination of ATN due to altered hemodynamics in setting of tamponade and contrast nephropathy Serum Creatinine 3.03, increased from 2.83 yesterday. Urine output yesterday measured at 880mL, Net +556mL. Hyponatremia- 127 today Hypokalemia- IV potassium chloride 20meq given yesterday. Normal at 4.5 today. Hypocalcemia- 7.1 Hypomagnesemia- 1g IV mag sulfate given yesterday. Normal today at 1.9. Metabolic acidosis- bicarb low at 16 CAD HFrEF- RHC suggestive of biventricular failure. EF 20%, RV systolic function severely reduced per echo 04/23/2025 Previously on IV milrinone, switched to dobutamine by Cardiology. Continues on IV Levophed. Atrial fibrillation s/p Watchman- on amiodarone Normocytic anemia Essential hypertension Plan: Monitor I/Os, trend serum creatinine Continue IV lasix drip 40mg/hr to encourage increased urine output. Will continue to monitor output. Monitor electrolytes, replete as needed Check BMP, Mg, phosphorus q8hrs Start oral sodium bicarb 1300 mg BID for acidosis and hyponatremia Again discussed with patient the possibility of renal replacement therapy if function continues to worsen. Avoid nephrotoxic agents Thank you for the consultation. Please do not hesitate to contact us for any questions/concerns. Velma continue to follow along with you. Hakan Dugan, MS3 [facility] Nephrology As the teaching physician, I have personally performed or re-performed the history of present illness, physical exam and medical decision-making activities of the encounter and verified the medical student's documentation. I made pertinent changes as necessary to ensure accurate documentation. There may be additional comments below. Additional Comments: Patient did not respond adequately to IV diuretics. Will initiate CRRT / CVVHDafter placement CVC catheter for dialysis. Discussed with MICU team. Zhen Feldman MD Faculty, Division of Nephrology, Department of Medicine, [facility]. * Mode Franco MD - 04/27/2025 8:30 AM EDT Images from the original note were not included. Cardiology Progress Note Subjective Subjective: Kristy Doherty is a 69 y.o. male with significant medical history of hypertension, paroxysmal atrial fibrillation s/p Watchman 02/06/2025, chronic HFrEf (25-30%) s/p ICD 08/2022, olecranon bursitis, and CAD who presented to the hospital for chest pain. Patient reports having substernal chest pain, radiating to his back and neck since the prior evening. Patient reports that his blood pressure has been running in the low 90s over 70s over the past couple of weeks. Denies any recent fever or chills/cough. Patient reports being compliant with all his medications. Interval History 04/19/2025: Echocardiogram done showed moderate circumferential pericardial effusion with concerns for early tamponade physiology. 04/20/2025: Cardiac drain in place with minimal serosanguineous fluid (around 50 to 60 mL output) drain removed in the afternoon. 04/21/2025: Labile blood pressures overnight, however improving. 200 cc UOP in last 24 hours, net +3L since admission. Sodium 127, BNP 254 04/22/2025: No notable events 04/23/2025: Patient was seen and examined at bedside. Patient was lying comfortably in bed. Patient denies any chest pain, shortness of breath, PND, dizziness/lightheadedness. No current complaints. BP moderately low at approximately 70-90/65-70 04/24/2025: Patient still being hypotensive and tachycardic, RHC was done for further evaluation. Demonstrated elevated wedge pressure and RV pressures. A Assawoman-Shannan catheter was placed for further monitoring andthe patient was transferred to the medical ICU. 04/25/2025: Patient was seen and examined at bedside. No acute complaints. RHC suggestive of biventricular failure. Started on milrinone at 0.25. Telemetry reviewed, PVCs and runs of NSVTs burden noted. SG readings: PA: 32/17 (22) CVP: 12 CO: 5.6 04/26/2025: Patient was seen and examined at bedside. Minimal urine output over the past 24 hours. Denies any acute complaints. 04/27/2025: The patient was seen and examined at bedside this morning. He was afebrile tachycardic, tachypneic,saturating well on room air. Remains on amiodarone gtt., dobutamine gtt (2 mcg/kg/min), Levophed (0.26 mcg/kg/min) & Lasix gtt (40 mg/hr). SG Readings: Assawoman malfunction, tentatively planning swanremoval. 880 ml UOP over the past 24 hours. Net positive 6.3 L. Na 127, Cr 3.03 (2.92), K 4.5, Mg 1.9, Hgb 11.2 (10.2). Objective: Patient Vitals for the past 24 hrs: Pulse Resp SpO2 Weight 04/27/25 0700 104 20 94 % -- 04/27/25 0654 -- -- -- 82.4 kg (181 lb 10.5 oz) 04/27/25 0600 97 18 96 % -- 04/27/25 0500 97 24 95 % -- 04/27/25 0400 98 (!) 31 93 % -- 04/27/25 0300 103 25 96 % -- 04/27/25 0200 102 24 94 % -- 04/27/25 0100 (!) 121 (!) 34 93 % -- 04/27/25 0022 -- -- 96 % -- 04/27/25 0000 103 18 94 % -- 04/26/25 2300 103 19 93 % -- 04/26/25 2200 107 22 94 % -- 04/26/25 2100 (!) 111 (!) 30 94 % -- 04/26/25 2008 (!) 120 18 94 % -- 04/26/25 2000 (!) 120 25 94 % -- 04/26/25 1900 (!) 116 (!) 32 94 % -- 04/26/25 1800 (!) 118 23 94 % -- 04/26/25 1720 110 -- -- -- 04/26/25 1700 (!) 116 (!) 30 94 % -- 04/26/25 1600 (!) 113 22 94 % -- 04/26/25 1500 110 24 92 % -- 04/26/25 1400 (!) 111 22 94 % -- 04/26/25 1325 (!) 127 -- -- -- 04/26/25 1300 (!) 113 21 94 % -- 04/26/25 1200 110 23 96 % -- 04/26/25 1100 107 25 94 % -- 04/26/25 1045 93 -- -- -- 04/26/25 1022 101 -- -- -- 04/26/25 1000 93 21 96 % -- 04/26/25 0920 96 -- -- -- 04/26/25 0901 98 -- -- -- 04/26/25 0900 92 25 92 % -- Physical Examination: Physical Exam Constitutional: General: He is not in acute distress. Appearance: Normal appearance. He is ill-appearing. HENT: Right Ear: External ear normal. Left Ear: External ear normal. Nose: Nose normal. Eyes: Extraocular Movements: Extraocular movements intact. Cardiovascular: Rate and Rhythm: Regular rhythm. Tachycardia present. Heart sounds: Normal heart sounds. Pulmonary: Breath sounds: Rales present. No wheezing. Abdominal: General: There is no distension. Palpations: Abdomen is soft. Tenderness: There is no abdominal tenderness. Musculoskeletal: Right lower leg: Edema present. Left lower leg: Edema present. Neurological: Mental Status: He is alert and oriented to person, place, and time. Psychiatric: Mood and Affect: Mood normal. Behavior: Behavior normal. Relevant Lab Results Encounter Date: 04/19/25 ECG 12 lead Result Value Ventricular Rate 120 Atrial Rate 120 ME Interval 198 QRS DURATION 102 QT Interval 294 QTC CALCULATION(BAZETT) 415 P Welch 64 R-Welch 38 T Wave Welch 116 Impression Sinus tachycardia Low voltage QRS Septal infarct , age undetermined Abnormal ECG When compared with ECG of 19-APR-2025 18:24, Premature ventricular complexes are no longer Present Confirmed by Jeffy VERNON, MITESH Pruett ([id number]) on 04/23/2025 8:14:48 AM Lab Results Component Value Date TROPONINI 0.04 07/02/2022 Limited Echo (TTE) w/wo Limited Doppler, Color Flow, Imaging Agent, Strain, 3D, Bubble Study Result Date: 04/23/2025 1 1 [place] [facility] Heart Station [address] [place] [address] [phone] (fax) Echocardiogram-[facility] Name: KRISTY DOHERTY Study Date: 04/23/2025 07:26 AM B/P: 90 mmHg/74 mmHg HR: 111 bpm Date of : 1955 Location: [facility] Height: 68 in. Age: 69 year(s) Patient Room: 3183 Weight: 177 lb. Gender: Male Patient Status: InPt BSA: 1.94 m2 Indication: Limited; pericardial effusion, S/P 35 mm Watchman device FLX, S/P Pericardiocentesis, H/O 25-30%, Pacemaker/AICD Examination: Limited Echo/Limited Doppler, Color flow imaging Image Quality: Good Patient Consent: Procedure explained to patient Conclusions Left Ventricle: Global left ventricular systolic function is severely reduced. The EF is 20 % visually. Regional wall motion abnormalities (see diagram). Right Ventricle: Severely reduced right ventricular systolic function. A pacemaker wire is seen in the right ventricle. Doppler studies suggest moderately elevated right sided pressures (elevated pulmonary pressure). Mitral Valve: Mild to moderate mitral regurgitation. Aortic Valve: Mild aortic valve regurgitation. Tricuspid Valve: Moderate tricuspid regurgitation. Overall Conclusions: Decrease in right ventricular systolic function and increase in tricuspid insufficiency when compared to previous study. Measurements Left Ventricle Label Value Normal Value LVEF visual 20 % Tricuspid Valve Label Value Normal Value RA Pressure 8 mmHg RVSP 49 mmHg TR Vmax 3.22 m/s Great Vessels Label Value Normal Value IVC 2 cm (1.2cm - 2.3cm) Valvular Assessment LVOT 0.7 - 1.1 m/sec Aortic Valve 1.0 - 1.7 m/sec Mitral Valve 0.6 - 1.3 m/sec Tricuspid Valve 0.3 - 0.7 m/sec Pulmonic Valve 0.6 - 0.9 m/sec Regurgitation Mild MildMod Moderate Findings Left Ventricle: Global left ventricular systolic function is severely reduced. The EF is 20 % visually. Regional wall motion abnormalities (see diagram). The basal anterior, basal anteroseptal, basal inferoseptal, basal inferior, basal inferolateral, basal anterolateral, mid inferoseptal, mid inferior and mid inferolateral left ventricular wall segments are hypokinetic. The mid anterior, mid anteroseptal, mid anterolateral, apical anterior, apical septal, apical inferior, apical lateral and apex left ventricular wall segments are akinetic. Right Ventricle: The right ventricular free wall is akinetic in the distaltwo- thirds. Severely reduced right ventricular systolic function. A pacemaker wire is seen in the right ventricle. Doppler studies suggest moderately elevated right sided pressures (elevated pulmonary pressure). Mitral Valve: The mitral valve is normal in mobility and thickness. Mild to moderate mitral regurgitation. Aortic Valve: The aortic valve opens well. Mildly sclerosed aortic valve cusps. Mild aortic valve regurgitation. Tricuspid Valve: Normal tricuspid valve. Moderate tricuspid regurgitation. Pulmonic Valve: Pulmonary valve not visualized. Great Vessels: IVC: The IVC is normal in size. There is no inspiratory collapse of the IVC. Pericardium: There is a minimal pericardial effusion. Procedure Staff Reading Group: [facility] Referring Physician: RUDY KING Property Consultant: June Brumfield RDCS, RVT, RN, BSN Ordering Physician: FANI DENNEY Wall Motion Scores -1 - hyperkinesia, 0 - not evaluated, 1 - normal, 2 - hypokinesia, 3 - akinesia, 4 - dyskinesia Transthoracic echo (TTE) limited Result Date: 04/20/2025 1 1 [place] [facility] Heart Station [address] [facility] [address] [phone] (fax) Echocardiogram-[facility] Name: KRISTY DOHERTY Study Date: 04/20/2025 01:28 PM B/P: 83 mmHg/58 mmHg HR: 96 bpm Date of : 1955 Location: [facility] Height: 68 in. Age: 69 year(s) Patient Room: [facility] Weight: 179 lb. Gender: Male Patient Status: InPt BSA: 1.95 m2 Indication: Limited; evaluate pericardial effusion, S/P 35 mm Watchman FLX, H/O EF 25 - 30 %, Pacemaker, Cardiomyopathy Examination: Limited Echo/Limited Doppler, Color flow imaging Image Quality: Good Patient Consent: Procedure explained to patient Conclusions Left Ventricle: Global left ventricular systolic function is severely reduced. The EF is 30 % visually. The septum is abnormal in its motion. Right Ventricle: Right ventricular systolic function appears normal. A pacemaker wire is seen in the right ventricle. Doppler studies suggest normal right sided pressures. Pericardium: No pericardial effusion. Measurements Left Ventricle Label Value Normal Value LVEF visual 30 %Tricuspid Valve Label Value Normal Value RA Pressure 3 mmHg RVSP 24 mmHg TR Vmax 2.29 m/s Great Vessels Label Value Normal Value IVC 1.1 cm (1.2cm - 2.3cm) Valvular Assessment LVOT 0.7 - 1.1 m/sec Aortic Valve 1.0 - 1.7 m/sec Mitral Valve 0.6 - 1.3 m/sec Tricuspid Valve 0.3 - 0.7 m/sec Pulmonic Valve 0.6 - 0.9 m/sec Regurgitation Trivial Trivial Trivial Findings Left Ventricle: Global left ventricular systolic function is severely reduced. The EF is 30 % visually. The septum is abnormal in its motion. All scored left ventricular wall segments are hypokinetic. Right Ventricle: Right ventricular systolic function appears normal. A pacemaker wire is seen in the right ventricle. Doppler studies suggest normal right sided pressures. Mitral Valve: The mitral valve is normal in mobility and thickness. Trivial mitral regurgitation. Aortic Valve: Mildly sclerosed aortic valve cusps. Trivial aortic valve regurgitation. Tricuspid Valve: Normal tricuspid valve. Trivial tricuspid regurgitation. Great Vessels: IVC: The IVC is normal in size. There is inspiratory collapse of the IVC. Pericardium: No pericardial effusion. Procedure Staff Reading Group: [facility] Referring Physician:RUDY KING Property Consultant: June Brumfield RDCS, RVT, RN, BSN Ordering Physician: VENU SAMANIEGO Wall Motion Scores -1 - hyperkinesia, 0 - not evaluated, 1 - normal, 2 - hypokinesia, 3 - akinesia, 4 - dyskinesia Transthoracic echo (TTE) limited Result Date: 04/19/2025 1 1 [place] [facility] Heart Station [address] [place] [address] [phone] (fax) Echocardiogram-[facility] Name: KRISTY DOHERTY Study Date: 04/19/2025 02:13 PM B/P: / HR: Date of : 1955 Location: [facility] Height: 68 in. Age: 69 year(s) Patient Room: 3183 Weight: 182 lb. Gender: Male Patient Status: InPt BSA: 1.96 m2 Indication: pericardialeffusion, h/o 35mm Watchman FLX Examination: Limited Echo Image Quality: Fair Findings Pericardium: Moderate pericardial effusion baseline. Post pericardiocentesis there is minimal pericardial effusion. Procedure Staff Reading Group: [facility] Referring Physician: RUDY KING Property Consultant: SAMI Starr, RDCS Ordering Physician: VENU SAMANIEGO Complete Echo (TTE) w/wo Imaging Agent, Strain, 3D, Bubble Study Result Date: 04/19/2025 1 1 [place] [facility] Heart Station [address] [facility] [address] [phone] (fax) Echocardiogram-[facility] Name: KRISTY DOHERTY Study Date: 04/19/2025 12:46 PM B/P: 97 mmHg/71 mmHg HR: Date of : 1955 Location: [facility] Height: 68 in. Age: 69 year(s) Patient Room: 3183 Weight: 182 lb. Gender: Male Patient Status: InPt BSA: 1.96 m2 Indication: Chest Pain, s/p 35mm Watchman FLX Examination: Echocardiogram (Complete) ImageQuality: Fair Patient Consent: Procedure explained to patient Conclusions Left Ventricle: The left ventricle is normal size. Global left ventricular systolic function is normal. The EF is 60 % visually. Left ventricular wall thickness is normal. No regional wall motion abnormality. Right Ventricle:The right ventricle appears normal in size. Right ventricular systolic function appears normal. Doppler studies suggest normal right sided pressures. Left Atrium: Watchman device visualized . The left atrium appears normal in size. Aortic Valve: Mild aortic valve regurgitation. Tricuspid Valve: Mild tricuspid regurgitation. Pericardium: There is a moderate circumfrential pericardial effusion. There is also, significant mitral inflow variations consistent with early tamponade physiology. Measurements Left Ventricle Label Value Normal Value LVOT VTI 11.1 cm (18cm - 22cm) LVOT PGmax 3 mmHg LVEF visual 60 % LVOT PGmean 1 mmHg Right Ventricle Label Value Normal Value TAPSE 0.97 cm Aortic Valve Label Value Normal Value AV DVI 0.5 AV VTI 23.1 cm Mitral Valve Label Value Normal Value MV E Vmax 0.54 m/s MV A Vmax 0.79 m/s MV E/A 0.68 MV E/E' lateral 7.6 MV E' lateral 0.07 m/s Tricuspid Valve Label Value Normal Value RA Pressure 3 mmHg RVSP 30 mmHg TR Vmax 2.59 m/s Valvular Assessment LVOT 0.7 - 1.1 m/sec Aortic Valve 1.0 - 1.7 m/sec Mitral Valve 0.6 - 1.3 m/sec Tricuspid Valve 0.3 - 0.7 m/sec Pulmonic Valve 0.6 - 0.9 m/sec Regurgitation Mild No Mild No Max Velocity 0.81 m/sec 1.62 m/s 0.54m/sec 1.02 m/s Max Gradient 10.00 mmHg 4.00 mmHg Mean Gradient 5.00 mmHg Findings Left Ventricle: The left ventricle is normal size. Global left ventricular systolic function is normal. The EF is 60 % visually. Left ventricular wall thickness is normal. No regional wall motion abnormality. Right Ventricle: The right ventricle appears normal in size. Right ventricular systolic function appears normal. Doppler studies suggest normal right sided pressures. Left Atrium: Watchman device visualized .The left atrium appears normal in size. Right Atrium: The right atrium appears normal in size. Mitral Valve: The mitral valve is normal in mobility and thickness. No mitral regurgitation. Aortic Valve: Focal aortic cusp thickening is noted. Mild aortic valve regurgitation. Tricuspid Valve: Normal tricuspid valve. Mild tricuspid regurgitation. Pulmonic Valve: Normal pulmonary valve. No pulmonary regurgitation. Aorta: The aortic root exhibits normal size. Great Vessels: IVC: Normal size and course of the IVC. Pericardium: There is a moderate circumfrential pericardial effusion. There is also, significant mitral inflow variations consistent with early tamponade physiology. Procedure Staff Reading Group: [facility] Property Consultant: Bryanna Cazares RDCS Ordering Physician: HAKAN Canchola signed by MD Mitesh Vernon on 04/19/2025 at 01:44 PM Limited Transthoracic Echo (TTE) w/wo Contrast, Color Flow, Imaging Agent, Strain, 3D, Bubble Study Result Date: 02/07/2025 1 1 [place] [facility] Heart Station [address] [place] [address] [phone] (fax) Echocardiogram-[facility] Name: KRISTY DOHERTY Study Date: 02/07/2025 08:02 AM B/P: 118 mmHg/85 mmHg HR: 63 bpm Date of : 1955 Location: [facility] Height: 68 in. Age: 69 year(s) Patient Room: 3176 Weight: 186 lb. Gender: Male Patient Status: InPt BSA: 1.98 m2 Indication: Atrial Fibrillation, Pacemaker, s/p 35mm Watchman FLX Examination: Limited Echo, Color flow imaging, Lumason Contrast Image Quality: Fair Patient Consent: Procedure explained to patient Exam Details Contrast: I.V. dose of Lumason Conclusions Left Ventricle: The left ventricle is [...] Aortic Valve: Mild aortic valve regurgitation. Overall C onclusions: Due to suboptimal imaging Lumason contrast was administered for opacification and better delineation of endocardial borders. Well seated 35mm Watchman FLX PRO. Measurements Left VentricleLabel Value Normal Value LVDd, 2D 5.86 cm (4.2cm - 5.9cm) LVDs, 2D 5.21 cm (2.1cm - 4cm) IVSd, 2D 0.91 cm (0.6cm - 1.1cm) LVPWd, 2D 1.06 cm (0.6cm - 1cm) LV Mass, 2D ASE 232.58 g LV Mass Index, 2D ASE 117.5 g/m?? (50g/m?? - 102.4g/m??) RWT, MM 0.36 (0 - 0.42) LVSVI, 2D 20.7 ml/m2 Aorta Label Value Normal Value AoRoot, 2D 3.4 cm (1.4cm - 3.8cm) Valvular Assessment LVOT 0.7 - 1.1 m/sec Aortic Valve1.0 - 1.7 m/sec Mitral Valve 0.6 - 1.3 m/sec Tricuspid Valve 0.3 - 0.7 m/sec Pulmonic Valve 0.6 - 0.9 m/sec Regurgitation Mild trivMil Findings Left Ventricle: The left ventricle is normal size. Global left ventricular systolic function is severely reduced. EF range is estimated at 25 % -30 %. Leftventricular wall thickness is increased. Diffuse global hypokinesis. Right Ventricle: The right ventricle is normal in size. Normal right ventricular systolic function. A pacemaker wire is seen in the right atrium and right ventricle. Left Atrium: The left atrium is normal in size. Right Atrium: The right atrium is normal in size. Mitral Valve: There is nonspecific thickening of the mitral valve leaflet. Trvial to mild mitral regurgitation. Aortic Valve: Focal aortic cusp thickening is noted. Mild aortic valve regurgitation. Tricuspid Valve: Normal tricuspid valve. Pulmonic Valve: Normal pulmonary valve. Aorta: The aortic root exhibits normal size. Great Vessels: IVC: The IVC is normal in size. Pericardium: No pericardial effusion. Procedure Staff Reading Group: [facility] Referring Physician: RUDY KING Property Consultant: SAMI Starr, RDCS Ordering Physician: CHUCK FUNEZ Transesophageal echo (MAOSN) Result Date: 12/01/2024 1 [place] [facility] Heart Station [address] [place] [address] [phone] (fax) Transesophageal Echocardiogram-[facility] Name: KRISTY DOHERTY Study Date: 12/01/2024 12:00 PM B/P: 134 mmHg/87 mmHg HR: 80 bpm Date of : 1955 Location: [facility] Height: 68 in. Age: 69 year(s) Patient Room: Weight: 194 lb. Gender: Male PatientStatus: OutPt BSA: 2.02 m2 Indication: Atrial Fibrillation, Pre-Watchman Examination: MASON, Color flow imaging Image Quality: Excellent Patient Consent: Informed, written consent was obtained for the procedure Exam Location: A MASON was performed in the [facility] without complications Anesthesia Pharyngeal anesthesia with viscous Lidocaine Conclusions Left Ventricle: The left ventricle is normal size. Global left ventricular systolic function is severely reduced. EF range is estimated at 25 % -30 %. Left ventricular wall thickness is normal. Diffuse global hypokinesis. Right Ventricle: The right ventricle appears normal in size. Normal right ventricular systolic function. Left Atrium: The left a trium is severely enlarged. Left Atrium Appendage: The left atrial appendage is monolobular. Normalleft atrial appendage, no thrombus seen. ROBB measutments [...] 50 micrograms Valvular Assessment LVOT 0.7 - 1.1m/sec Aortic Valve 1.0 - 1.7 m/sec Mitral Valve 0.6 - 1.3 m/sec Tricuspid Valve 0.3 - 0.7 m/sec Pulm onic Valve 0.6 - 0.9 m/sec Regurgitation Mod [...] atrium is severely enlarged. Left Atrium Appendage: Theleft atrial appendage is normal. The left atrial [...] is a minimal pericardial effusion. The Attending Ph ysician was present and personally reviewed the examination with the fellow Procedure Staff ReadingGroup: [facility] Referring Physician: RUDY KING Property Consultant: DORIAN Walker Ordering Physician: Hay William MD No nuclear medicine results found for the past 12 months Relevant Imaging Results Cardiac catheterization PROCEDURE PHYSICIAN: Hay William MD . Indications: Kristy Doherty is a 69 y.o. male with ongoing hypotension. His echocardiogram shows reduced left ventricular and right ventricular systolic function. He was referred for right heart catheterization to guide of management. Assistants: None. Procedure Performed: Right heart catheterization. Placement of a DISHWASHER PREPARER Assawoman-Shannan catheter for hemodynamic monitoring. Access into the right internal jugular vein under ultrasound guidance. Methods: Procedure was explained to the patient with risks and benefits; he signed informed consent. he was brought to the lab instructor in a fasting state. The right neck area was prepped and draped in usual fashion. Micropuncture technique was used for access under ultrasound guidance into the right internal jugular vein. A 6-Hungarian x 11 cm sheath was placed. A 6-Hungarian Carrasquillo catheter was used for right heart catheterization and measurement of pressures and calculation of cardiac output using the estimated [place] method. Carrasquillo catheter was removed. Over a wire to the access sheath was upsized to a 9 Hungarian introducer sheath. A DISHWASHER PREPARER Assawoman-Shannan catheter was advanced with the aid of a V18 wire and the distal end of the catheter was advanced to the distal segment of the right pulmonary artery. The Assawoman-Shannan catheter was secured in place. he tolerated the procedure well and was transferred back to the hospital room. Hemodynamic Data: RA: 18 RV: 34/7, 16 PA: 37/24 (30) PCWP: 21 CO: 2.55 CI: 1.3 O2 Sat: PA sat: 33%, AO sat: 96% BP: 89/70 (78) TP PVR: 3.52 Wood units SVR: 1882 Metric units Melanie: 0.72 Cardiac power output: 0.44 Impression/Findings: Moderate elevation of left filling pressures. Moderate to severe elevation of right filling pressures. Moderate pulmonary hypertension. Severely reduced cardiac output and cardiac index. Controlled systemic hypertension. 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 Reduced Melanie consistent with right ventricular failure. Reduced cardiac power output and increased left-sided filling pressures is consistent with left-sided ventricular failure. Findings are consistent with biventricular failure. Successful placement of a DISHWASHER PREPARER Assawoman-Shannan catheter to guide management of heart failure. Plan: Patient will be started on intravenous inotropic therapy. Further recommendations per inpatient Cardiology service. Hay William MD Assessment: Cardiogenic shock, cardiac index 1.3 L/min/m2, likely secondary to acute heart failure exacerbation Acute right ventricular failure Melanie 0.72 < 1 suggestive of significant RV failure RHC suggestive of biventricular failure Acute on chronic heart failure with reduced ejection fraction s/p ICD placement, NYHA II/III 04/23/2025 echo with EF 20%, severely reduced RV systolic function, mild-moderate MR, mild AV regurg, mild TR, elevated RVSP 49 Non-oliguric acute kidney injury, worsening with decreased urinary output Likely underlying cardiorenal syndrome: type1 Moderate circumferential pericardial effusion s/p RHC and pericardiocentesis (300cc removal) with drain placement on 04/19/25 - unclear etiology, cannot rule out acute pericarditis Pericardial drain removed 04/20 after resolution of effusion on 04/20 echo Repeat echo limited 04/23/2025 with EF 20%, severely reduced RV systolic function, and no inspiratory collapse of IVC (new findings), and minimal pericardial effusion Frequent PVC's and runs of NSVT on telemetry, on amiodarone gtt Paroxysmal A-fib [id number] 3 (heart failure, hypertension, age 65-74) s/p Watchman procedure on 02/06/2025 (due to prior bleeding with eliquis) Nonobstructive coronary artery disease Hyperlipidemia (unspecified) on lipitor 40 Plan: Inotropic support with Dobutamine started 04/26. Continue to monitor telemetry for arrhythmias. Continue Levophed to maintain systolic blood pressure > 100 mmHg. Vasopressin added. Hydrocortisone added per primary. Agree with Lasix infusion per nephrology. Continue to monitor urine output. Recommend frequent checking of electrolytes with BMP every 12 hrs while on Lasix drip. Nephrology considering DRESSMAKER GARMENT FITTER if kidneyfunction continues to decline. Aggressive electrolyte replacement to maintain potassium > 4 and magnesium > 2 Hold colchicine 0.6 mg in setting of worsening kidney function Continue Cardiac medications as tolerated (currently limited by hypotension) Lipitor 40 mg, aspirin 81 mg & Plavix 75 mg Holding: Toprol-XL 12.5 mg daily, Farxiga 10 mg daily, Entresto 97/103 mg b.I.d. & Aldactone 25mg. Cardiology will continue to follow. Please call with any questions. Mode Franco, PGY2 [place] Cardiology Service [facility] Cosigned by Bebo Dominguez MD at 04/27/2025 5:07 PM EDT Associated attestation - Bebo Dominguez MD - 04/27/2025 5:07 PM EDT By using the attestations below, the signing clinician agrees that I have read and verify that thedocumentation has been personally reviewed by me and ensure that the documentation accurately reflects the encounter. GC: I personally saw this patient on the day of the encounter, performed the gonzáles portion(s) of the service and participated in the management and confirm the resident's documentation. Please note there may be an additional personal documentation from me. Additional Comments: agree He developed hematoma at the right neck so a trialysis cath was placed at the left femoral vein andthe right IJ Assawoman-Shannan catheter was removed and manual pressure applied to obtain hemostasis He remains on dobutamine inotrope support and Levophed vasopressor support He can continues to have oliguric LINDA Nephrology may start HD soon Difficult case with acute on chronic HFrEF, cardiogenic shock, acute cor pulmonale, paroxysmal afib, recent pericarditis requiring pericardial drain * Karsten Gage MD - 04/27/2025 7:44 AM EDT Images from the original note were not included. Medical ICU Progress Note Patient - Kristy Doherty Age - 69 y[facility] 1955 [id number] Date of Admission - 04/19/2025 10:46 AM HPI/Hospital Course Subjective Kristy Doherty is an 69 y.o. male who came from [place] with chest pain with radiation to neck andback. Past medical history of heart failure with reduced ejection fraction, hypertension, coronary artery disease, cardiomyopathy nonischemic (AICD placed), hyperlipidemia, atrial fibrillation statuspost Watchman , asthma. Patient presents from [place] with chest pain radiating to the neck and back. He states that chest pain started last night was a constant sharp pain all over his chest. He states that the pain radiated to his neck and back rated pain a 5 out of 10. Patient stated when he was on his right side pain in his neck improved. At outside hospital patient was found to have small pericardial effusion on CT as well as potential atelectasis versus pneumonia. He also had a sodium of 123. His troponins were downtrending and from 11.5-10.5. Patient was also hypotensive at outside hospital which he states he has been hypotensive now for the past 2 weeks. At bedside patientstates that chest pain has improved and is now a 2 out of 10. He still states that chest pain radiates up to his neck. Along with chest pain he complains of fever, sweats, chest pain, shortness of breath, fatigue, weakness. Patient denies chills, palpitations, leg swelling, wheezing abdominal pain,nausea, vomiting, diarrhea, lightheadedness, dizziness, headache, visual changes. Patient was then taken to the catheterization lab for emergent pericardiocentesis due to echo showing signs of cardiac tamponade. A right heart cath, left heart cath and pericardiocentesis were performed. They able to successfully drain the pericardial fluid with significant proven in blood pressure following pericardiocentesis and drain placement. There was minimal drain output and repeat echo showed no pericardial effusions. The patient was being managed by the hospitalist service and plans for discharge were in place, however the patient had recurrence of his pericardial effusion along with hypotension. Repeat echoes showed worsening ejection fraction and severely reduced RV systolic function with no inspiratory collapse of the IVC. Patient was taken back to the catheterization lab for a right heart cath which demonstrated elevated wedge pressure and RV pressures. A Assawoman-Shannan catheter was placed for further monitoring and the patient was transferred to the medical ICU. SUBJECTIVE Patient seen and examined at the bedside. He denies any chest pain, shortness of breath, or cough. He does endorse new right neck swelling where Assawoman cath is placed. Continuing pressor support and monitoirng closely. OBJECTIVE Vitals height is 1.727 m (5' 8 ) and weight is 82.4 kg (181 lb 10.5 oz). His temporal temperature is 36.5 ??C (97.7 ??F). His blood pressure is 77/50 and his pulse is 104. His respiration is 20 and oxygen saturation is 94%. Temp: [36.5 ??C (97.7 ??F)] 36.5 ??C (97.7 ??F) Heart Rate: [92-127] 104 Resp: [18-34] 20 Arterial Line BP 1: (86-113)/(53-74) 106/65 Physical Exam: Physical Exam Constitutional: General: He is not in acute distress. Appearance: Normal appearance. He is not ill-appearing. Eyes: Extraocular Movements: Extraocular movements intact. Conjunctiva/sclera: Conjunctivae normal. Pupils: Pupils are equal, round, and reactive to light. Cardiovascular: Rate and Rhythm: Normal rate. Rhythm irregular. Pulses: Normal pulses. Pulmonary: Effort: Pulmonary effort is normal. Breath sounds: Normal breath sounds. Abdominal: General: Abdomen is flat. Palpations: Abdomen is soft. Neurological: General: No focal deficit present. Mental Status: He is alert and oriented to person, place, and time. Weight: Admission weight: 82.6 kg (182 lb) Wt Readings from Last 1 Encounters: 04/27/25 82.4 kg (181 lb 10.5 oz) Input/Output: Intake/Output Summary (Last 24 hours) at 04/27/2025 0744 Last data filed at 04/27/2025 0700 Gross per 24 hour Intake 1532.02 ml Output 880 ml Net 652.02 ml Ventilator: Lab Results ABG: CBC: Results from last 7 days Lab Units 04/27/25 0536 04/26/25 0305 04/25/25 0322 WBC AUTO 10*3/uL 8.21 6.84 6.72 HEMOGLOBIN g/dL 11.2* 10.2* 10.4* HEMATOCRIT % 32.0* 29.3* 30.2* PLATELETS AUTO 10*3/uL 287 233 205 Coagulation: Metabolic Panel: Results from last 7 days Lab Units 04/27/25 0536 04/26/25 2359 04/26/25 1624 POTASSIUM mmol/L 4.5 4.3 4.1 CHLORIDE mmol/L 98 98 97* CO2 mmol/L 16* 15* 18* BUN mg/dL 41* 41* 39* CREATININE mg/dL 3.03* 2.92* 2.84* GLUCOSE mg/dL 175* 181* 168* CALCIUM mg/dL 7.1* 6.8* 7.1* MAGNESIUM mg/dL 1.9 2.0 2.1 Liver Panel: Results from last 7 days Lab Units 04/23/25 0502 ALBUMIN g/dL 3.7 BILIRUBIN TOTAL mg/dL 0.5 ALT U/L 18 AST U/L 34 ALK PHOS U/L 48 Glucose: Hgb A1c: Cardiac: No lab exists for component: TROPI , TROPONIN Anemia Labs: Lipid Panel: Results from last 7 days Lab Units 04/24/25 0407 CHOLESTEROL mg/dL 98* HDL mg/dL 29 LDL CALC mg/dL 54 TRIGLYCERIDES mg/dL 75 Urine Labs: Lab Results Component Value Date UROBILINOGEN Normal 04/26/2025 Additional Labs: No lab exists for component: LACTICACID , PROCALCITON Radiology Cardiac catheterization PROCEDURE PHYSICIAN: Hay William MD . Indications: Kristy Doherty is a 69 y.o. male with ongoing hypotension. His echocardiogram shows reduced left ventricular and right ventricular systolic function. He was referred for right heart catheterization to guide of management. Assistants: None. Procedure Performed: Right heart catheterization. Placement of a DISHWASHER PREPARER Assawoman-Shannan catheter for hemodynamic monitoring. Access into the right internal jugular vein under ultrasound guidance. Methods: Procedure was explained to the patient with risks and benefits; he signed informed consent. he was brought to the lab instructor in a fasting state. The right neck area was prepped and draped in usual fashion. Micropuncture technique was used for access under ultrasound guidance into the right internal jugular vein. A 6-Hungarian x 11 cm sheath was placed. A 6-Hungarian Carrasquillo catheter was used for right heart catheterization and measurement of pressures and calculation of cardiac output using the estimated [place] method. Carrasquillo catheter was removed. Over a wire to the access sheath was upsized to a 9 Hungarian introducer sheath. A DISHWASHER PREPARER Assawoman-Shannan catheter was advanced with the aid of a V18 wire and the distal end of the catheter was advanced to the distal segment of the right pulmonary artery. The Assawoman-Shannan catheter was secured in place. he tolerated the procedure well and was transferred back to the hospital room. Hemodynamic Data: RA: 18 RV: 34/7, 16 PA: 37/24 (30) PCWP: 21 CO: 2.55 CI: 1.3 O2 Sat: PA sat: 33%, AO sat: 96% BP: 89/70 (78) TP PVR: 3.52 Wood units SVR: 1882 Metric units Melanie: 0.72 Cardiac power output: 0.44 Impression/Findings: Moderate elevation of left filling pressures. Moderate to severe elevation of right filling pressures. Moderate pulmonary hypertension. Severely reduced cardiac output and cardiac index. Controlled systemic hypertension. 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 Reduced Melanie consistent with right ventricular failure. Reduced cardiac power output and increased left-sided filling pressures is consistent with left-sided ventricular failure. Findings are consistent with biventricular failure. Successful placement of a DISHWASHER PREPARER Assawoman-Shannan catheter to guide management of heart failure. Plan: Patient will be started on intravenous inotropic therapy. Further recommendations per inpatient Cardiology service. Hay William MD Cultures Lab Results Component Value Date BLOOD CULTURE No growth at 5 days 04/20/2025 BLOOD CULTURE No growth at 5 days 04/20/2025 Medications Scheduled: allopurinol, 300 mg, oral, Daily aspirin, 81 mg, oral, Daily with breakfast atorvastatin, 40 mg, oral, Nightly clopidogrel, 75 mg, oral, Daily [Held by provider] colchicine, 0.6 mg, oral, BID [Held by provider] dapagliflozin propanediol, 10 mg, oral, Once Daily enoxaparin, 40 mg, subcutaneous, Daily [Held by provider] furosemide, 80 mg, intravenous, q12h hydrocortisone sodium succinate, 50 mg, intravenous, q6h ABILIO [Held by provider] metoprolol succinate XL, 12.5 mg, oral, Daily mometasone-formoterol, 2 puff, inhalation, BID [Held by provider] spironolactone, 25 mg, oral, Daily Infusions: amiodarone, 0.5 mg/min, Last Rate: 0.5 mg/min (04/27/25 07) DOBUTamine, 2.5-15 mcg/kg/min, Last Rate: 2 mcg/kg/min (04/27/25699) furosemide, 40 mg/hr, Last Rate: 40 mg/hr (04/27/25699) [Held by provider] milrinone, 0.25 mcg/kg/min, Last Rate: Stopped (04/26/25 1112) norEPINEPHrine, 0.01-2 mcg/kg/min, Last Rate: 0.26 mcg/kg/min (04/27/25699) As Needed: PRN medications: acetaminophen, albuterol, melatonin, naloxone OR naloxone OR naloxone, ondansetron ODT OR ondansetron, [Held by provider] sennosides-docusate sodium ASSESSMENT AND PLAN Assessment Cardiogenic shock secondary to circumferential pericardial effusion and cardiac tamponade Chronic heart failure with reduced ejection fraction EF 20% s/p ICD Acute pericarditis Paroxysmal atrial fibrillation Frequent PVCs HTN HLD Plan Cardiogenic shock secondary to circumferential pericardial effusion and cardiac tamponade Chronic heart failure with reduced ejection fraction EF 20% s/p ICD Patient had 300 cc removal with drain placement on 04/19, repeat echo on 04/23 showed severely reduced EF 20% and RV systolic function along with no inspiratory collapse of IVC Pericardial drain was removed on 04/20 due to resolution of effusion Assawoman Shannan placed on 04/24, has showed improvement in CO and CI PA 38/24 PCWP 21 CO 4.2, CI 3.5 Melanie 0.72 Patient is currently on Dobutamine and levophed Added on hydrocortisone Previous Lasix challenges have not produced adequate urine, have started Lasix drip per nephrology Will restart GDMT as appropriate once stable Appreciate cardiology input Has swelling on side of Assawoman catheter, discussing with cardiology on pulling it Acute renal injury, worsening Metabolic acidosis Patient has had increase in creatinine to 3.03 from baseline of normal over the past 2 days Likely is due to combination of shock, cardiorenal syndrome, along with receiving IV contrast a couple days ago. Anticipate improvement once blood pressure stabilizes Bedside bladder ultrasound does not show any acute retention/obstruction Urine studies ordered: FeNa 2.6% showing ATN Patient showing signs of early/minimal pulmonary edema from volume overload Nephrology consulted Switch lasix IV 80mg BID to IV drip to encourage increased urine output Discussed with patient possibility of CRRT if function continues to worsen Urine output so far has not been adequate Hyponatremia Likely due to volume overload from cardiogenic shock along with aggressive diuresis Sodium is 129, continuing to trend Urine studies ordered Possible acute pericarditis Could explain the pericardial effusion and tamponade Was on colchicine, but held due to kidney function decline Paroxysmal atrial fibrillation. Controlled CHADSVASC 3 (HTN, CHF, age) Had Watchamn on 01/2025 due to prior Eliquis bleeding Currently on aspirin and Plavix, continuing Rate controlled on Toprol 12.5 BID, continue as BP allows Started amiodarone drip, continuing Frequent PVCs on tele Likely is due to tamponade and current cardiogenic shock Toprol for suppression Continue tele and monitoring Last ABG: None Fluids: PRN Pressor support: Dobutamine, levophed Lines (location & placement): Assawoman Shannan DVT prophylaxis: Heparin subq Diet: Regular Code Status: FULL This progress note was completed using a voice commodities requirements analyst system. Every effort was made to ensure accuracy. However, inadvertent computerized commodities requirements analyst errors may be present. Karsten Gage MD PGY2 IM Resident 04/27/25 7:44 AM Cosigned by Pepe Anthony MD at 04/27/2025 3:12 PM EDT Associated attestation - Pepe Anthony MD - 04/27/2025 3:12 PM EDT I evaluated the patient with the resident/fellow Karsten Gage MD on the same day, agree with thefindings as described with the following additions or corrections: Cardiogenic shock with severely reduced ejection fraction, on Levophed and dobutamine. Change the blood pressure target from systolic to MAP goal of 65, as patient's current MAP is more than 80 to achieve a systolic of 100, because of narrow pulse pressure caused by cardiogenic failure. He is currently requiring significantly high amount of Levophed, that may cause further declining of the cardiac output with high diastolic pressure. Cardiorenal syndrome, with ATN, not responding appropriately to the diuretics. Continue monitoring closely for volume status, may need hemodialysis. Discussed with nephrology and cardiology on the floor. Assawoman is dysfunctional, and noted to have hematoma at insertion site, we will remove the Assawoman catheter. Insert hemodialysis catheter on left IJ. I personally provided direct critical care services consisting of decision making of high complexity to assess, and support: Cardiogenic shock Acute renal failure Coordination of care with cardiology and to prevent further deterioration for the organ dysfunction. Critical Care minutes were 32, which excludes time performing separately billed procedures, updating family, and teaching. * Zhen Feldman MD - 04/26/2025 3:59 PM EDT Images from the original note were not included. Nephrology Consult Note Patient : Kristy Doherty; 69 y.o. Location: 3217/3217-01 Attending: Pepe Anthony MD Admit Date: 04/19/2025 Hospital Day: 7 Reason for Consult: Acute Kidney Injury. History of Present Illness: Kristy Doherty is a 69 y.o. male with PMHx significant for CAD, Atrial fibrillation s/p Watchman procedure, who was transferred from [place] with initial chief complaint of chest and back pain. The patient was noted to have a percardial effusion and echocardiogram and was taken for emergent pericar diocentesis with RHC and LHC. He had recurrence of his effusion with repeat echo demonstrating reduced RV function, RHC with elevated wedge pressures. Patient is seen and examined in MICU. He is currently receiving lasix 40 mg in addition to 40 received earlier. Plan to give 80 mg BID additional. Urine output this far has been minimal. He has a lanier catheter in place. Denies acute complaints incl uding chest pain and shortness of breath. Interval History: 10/09/25 The patient was seen and evaluated in his room where he was seated in a reclining chair. He states he is doing better today. He reports he is making some urine and denies dysuria, hematuria, frequency/urgency. Denies chest pain, palpitations, SOB, fevers, chills, nausea, vomiting. Review of Systems: Review of Systems Constitutional: Negative for chills and fever. Respiratory: Negative for shortness of breath. Cardiovascular: Negative for chest pain and palpitations. Genitourinary: Negative for difficulty urinating, dysuria, frequency, hematuria and urgency. Input/Output: I/O last 3 completed shifts: In: 1593.2 (19.3 mL/kg) [I.V.:1443.2 (17.5 mL/kg); IV Piggyback:150] Out: 415 (5 mL/kg) [Urine:415 (0.1 mL/kg/hr)] Weight: 82.7 kg Vital Signs: Temperature: Temp: 36.5 ??C (97.7 ??F) TMax: Temp (24hrs), Av.6 ??C (97.8 ??F), Min:36.4 ??C (97.5 ??F), Max:36.6 ??C (97.9 ??F) Respirations: Resp: 22 Pulse: Heart Rate: (!) 111 BP: BP: 77/50 BP Range: Systolic (24hrs), Av , Min:77 , Max:107 Diastolic (24hrs), Av, Min:50, Max:83 Wt Readings from Last 3 Encounters: 04/26/25 82.7 kg (182 lb 5.1 oz) 04/03/25 84.8 kg (187 lb) 02/26/25 85.7 kg (189 lb) Physical Examination: Physical Exam Constitutional: General: He is awake. He is not in acute distress. Cardiovascular: Rate and Rhythm: Regular rhythm. Tachycardia present. Pulmonary: Effort: Pulmonary effort is normal. Musculoskeletal: Right lower leg: Edema present. Left lower leg: Edema present. Neurological: General: No focal deficit present. Mental Status: He is alert. Psychiatric: Attention and Perception: Attention normal. Mood and Affect: Mood normal. Speech: Speech normal. Behavior: Behavior is cooperative. Labs: Chemistry: Lab Results Component Value Date NA 129 (L) 04/26/2025 K 4.2 04/26/2025 CL 100 04/26/2025 CO2 19 (L) 04/26/2025 ANIONGAP 14 04/26/2025 BUN 40 (H) 04/26/2025 CREATININE 2.83 (H) 04/26/2025 EGFR 23.4 (L) 04/26/2025 CALCIUM 7.2 (L) 04/26/2025 MG 1.8 (L) 04/26/2025 PHOS 2.6 04/26/2025 ALBUMIN 3.7 04/23/2025 PROT 6.8 04/23/2025 AST 34 04/23/2025 ALT 18 04/23/2025 BILITOT 0.5 04/23/2025 ALKPHOS 48 04/23/2025 Hematology & Iron studies: Lab Results Component Value Date WBC 6.84 04/26/2025 HGB 10.2 (L) 04/26/2025 HCT 29.3 (L) 04/26/2025 MCV 92.4 04/26/2025 PLT 233 04/26/2025 Urine chemistry: Lab Results Component Value Date PROTUR Negative 04/26/2025 CREATUR 83.0 04/26/2025 NAUR 92 04/26/2025 UREAUR 237 04/26/2025 Urinalysis & Microscopy: Lab Results Component Value Date COLORU Light-Yellow 04/26/2025 CLARITYU Clear 04/26/2025 SPECGRAVU 1.013 04/26/2025 LOGAN 5.0 04/26/2025 PROTUR Negative 04/26/2025 LEUKOCYTESU Negative 04/26/2025 NITRITEU Negative 04/26/2025 GLUCOSEU 250 (A) 04/26/2025 KETONESU Negative 04/26/2025 UROBILINOGEN Normal 04/26/2025 BLOODU Negative 04/26/2025 Urine Eosinophils: No components found for: UEOS Serology & Other labs: BNP: No results found for: BNP COLLIN: No results found for: COLLIN SPEP:No results found for: PROT UPEP: No components found for: LABPE C3: No results found for: C3 C4: No results found for: C4 MPO ANCA: No components found for: MPO PR3 ANCA: No components found for: PR3 Anti-GBM: No components found for: GBMABIGG Hep BsAg: No results found for: HEPBSAG Hep C AB: No results found for: HEPCAB Outpatient Medications & Allergies: Medication Documentation Review Audit Reviewed by Karrie Garza RN (Registered Nurse) on 04/19/25 at 1111 Medication Order Taking? Sig Documenting Provider Last Dose Status albuterol 90 mcg/actuation inhaler [id number] Inhale 1 puff 2 times daily. Historical ProviderMD Active allopurinol (Zyloprim) 300 mg tablet [id number] Yes Take 300 mg by mouth in the morning. Historical ProviderMD 04/18/2025 Morning Active amoxicillin (Amoxil) 500 mg tablet [id number] No Take 4 tablets (2,000 mg) by mouth 1 (one) time if needed (30-60 minute prior to dental procedures) for up to 20 doses. Patient not taking: Reported on 04/19/2025 Hay William MD Unknown Active aspirin 81 mg chewable tablet [id number] Yes Chew 1 tablet (81 mg) with breakfast. Hay William MD 04/18/2025 Morning Active atorvastatin (Lipitor) 40 mg tablet [id number] Yes Take 1 tablet (40 mg) by mouth at bedtime. Hay William MD 04/18/2025 Bedtime Active clopidogrel (Plavix) 75 mg tablet [id number] Yes Take 1 tablet (75 mg) by mouth in the morning. Hay William MD 04/18/2025 Morning Active dapagliflozin propanediol (Farxiga) 10 mg [id number] Yes Take 1 tablet (10 mg) by mouth once daily asdirected. Shania Chauhan CNP 04/18/2025 Morning Active Dupixent Syringe 300 mg/2 mL syringe injection [id number] No Inject 300 mg under the skin every 14 (fourteen) days. German ProviderMD 04/07/2025 Active fluticasone (Flonase) 50 mcg/actuation nasal spray [id number] Yes Administer 1 spray into each nostril two times daily. Shake gently. Before first use, prime pump. After use, clean tip and replace cap.German ProviderMD 04/18/2025 Bedtime Active fluticasone propion-salmeteroL (Advair Diskus) 500-50 mcg/dose diskus inhaler [id number] Yes Inhale 1puff two times daily. Historical Provider, 04/18/2025 Bedtime Active metoprolol succinate XL (Toprol-XL) 50 mg 24 hr tablet [id number] Yes Take 1 tablet (50 mg) by mouth once daily as directed. Do not crush or chew. Hay William MD 04/18/2025 Morning Active sacubitril-valsartan (Entresto) 97-103 mg tablet [id number] Yes Take 1 tablet by mouth two times daily. Hay William MD 04/18/2025 Bedtime Active spironolactone (Aldactone) 25 mg tablet [id number] Yes Take 1 tablet (25 mg) by mouth in the morning.Hay William MD 04/18/2025 Morning Active No Known Allergies Current Inpatient Medications: Scheduled Meds: allopurinol, 300 mg, oral, Daily aspirin, 81 mg, oral, Daily with breakfast atorvastatin, 40 mg, oral, Nightly clopidogrel, 75 mg, oral, Daily [Held by provider] colchicine, 0.6 mg, oral, BID [Held by provider] dapagliflozin propanediol, 10 mg, oral, Once Daily enoxaparin, 40 mg, subcutaneous, Daily [Held by provider] furosemide, 80 mg, intravenous, q12h hydrocortisone sodium succinate, 50 mg, intravenous, q6h ABILIO [Held by provider] metoprolol succinate XL, 12.5 mg, oral, Daily mometasone-formoterol, 2 puff, inhalation, BID [Held by provider] spironolactone, 25 mg, oral, Daily Continuous Infusions: amiodarone, 0.5 mg/min, Last Rate: 0.5 mg/min (04/26/25 1400) DOBUTamine, 2.5-15 mcg/kg/min, Last Rate: 2 mcg/kg/min (04/26/25 1400) furosemide, 40 mg/hr, Last Rate: 40 mg/hr (04/26/25 1400) [Held by provider] milrinone, 0.25 mcg/kg/min, Last Rate: Stopped (04/26/25 1112) norEPINEPHrine, 0.01-2 mcg/kg/min, Last Rate: 0.27 mcg/kg/min (04/26/25 1400) PRN Meds: PRN medications: acetaminophen, albuterol, melatonin, naloxone OR naloxone OR naloxone, ondansetron ODT OR ondansetron, [Held by provider] sennosides-docusate sodium Past Medical/Surgical/Social/Family History: Past Medical History: Diagnosis Date Asthma 07/29/2012 CHF (congestive heart failure) ([facility]) Coronary artery disease History of malignant neoplasm of prostate 07/03/2022 Hypertension 07/03/2022 Past Surgical History: Procedure Laterality Date BAND HEMORRHOIDECTOMY CARDIAC CATHETERIZATION PROSTATECTOMY SINUS SURGERY Social History Socioeconomic History Marital status: Single Spouse name: Not on file Number of children: Not on file Years of education: Not on file Highest education level: Not on file Occupational History Not on file Tobacco Use Smoking status: Former Types: Cigarettes Smokeless tobacco: Never Substance and Sexual Activity Alcohol use: Yes Alcohol/week: 14.0 standard drinks of alcohol Types: 14 Cans of beer per week Comment: occasional Drug use: Never Sexual activity: Defer Other Topics Concern Not on file Social History Narrative Not on file Social Drivers of Health Financial Resource Strain: Low Risk (04/19/2025) Overall Financial Resource Strain (CARDIA) Difficulty of Paying Living Expenses: Not hard at all Food Insecurity: No Food Insecurity (04/19/2025) Hunger Vital Sign Worried About Running Out of Food in the Last Year: Never true Ran Out of Food in the Last Year: Not on file Transportation Needs: No Transportation Needs (04/19/2025) Transportation Lack of Transportation (Medical): No Lack of Transportation (Non-Medical): Not on file Physical Activity: Not on file Stress: Not on file Social Connections: Not on file Intimate Partner Violence: Unknown (04/19/2025) Humiliation, Afraid, Rape, and Kick questionnaire Fear of Current or Ex-Partner: No Emotionally Abused: Not on file Physically Abused: Not on file Sexually Abused: Not on file Housing Stability: Low Risk (04/19/2025) Housing Stability Vital Sign Unable to Pay for Housing in the Last Year: No Number of Times Moved in the Last Year: Not on file Homeless in the Last Year: No Family History Problem Relation Name Age of Onset Other (pacemaker) Mother Stroke Mother Emphysema Father Radiology: === 04/19/25 === XR CHEST 1 VIEW - Impression - Tip of the Assawoman-Shannan catheter appears to be in the right main pulmonary artery. No new acute pulmonary abnormalities displayed. Electronically signed: Ralphalexandria Mcgovern. === 04/19/25 === CTA CHEST W IV CONTRAST - Impression - * No central pulmonary embolus. * Small bilateral pleural effusions. * Enlarged main pulmonary artery suggestive of pulmonary arterial hypertension. Reflux of contrast into the suprahepatic IVC suggestive of right heart dysfunction. Approved by:Benedict Katz04/23/2025 5:40 PM. I, Howie Velasquez,have reviewed the image(s) and agree with the findings in this report. Electronically signed: Howie Velasquez. Assessment: Acute Kidney Injury, likely combination of ATN due to altered hemodynamics in setting of tamponade and contrast nephropathy Serum Creatinine 2.83. down from 2.96 Patient still making only small amounts of urine, 350mL today Hyponatremia Hypokalemia Hypocalcemia CAD HFrEF- RHC suggestive of biventricular failure. EF 20%, RV systolic function severely reduced per echo 04/23/2025 Previously on IV milrinone and Levophed. Milrinone switched to dobutamine by Cardiology. Atrial fibrillation s/p Watchman- on amiodarone Normocytic anemia Essential hypertension Plan: Monitor I/Os, trend serum creatinine Switched lasix IV 80mg BID to IV lasix drip 40mg/hr to encourage increased urine output. Will continue to monitor. Monitor electrolytes, replete as needed IV mag sulfate 1g and IV potassium chloride 20meq given Check BMP, Mg, phosphorus q8hrs Previously discussed with patient the possibility of renal replacement therapy if function continues to worsen. No current indication for hemodialysis. Avoid nephrotoxic agents Thank you for the consultation. Please do not hesitate to contact us for any questions/concerns. Wewill continue to follow along with you. Hakan Dugan, MS3 [facility] Nephrology As the teaching physician, I have personally performed or re-performed the history of present illness, physical exam and medical decision-making activities of the encounter and verified the medical student's documentation. I made pertinent changes as necessary to ensure accurate documentation. There may be additional comments below. Zhen Feldman MD Faculty, Division of Nephrology, Department of Medicine, [employer]. * Marisol Saucedo, DANIELE - 04/26/2025 1:05 PM EDT .Adult Nutrition Assessment: Name: Kristy Doherty Date: 1955 Date of Visit: 04/26/25 Admission Dx: Chest pain [R07.9] Reason for assessment: follow up Information obtained from: patient, physician Medical History[1] Current Medications: allopurinol, 300 mg, oral, Daily aspirin, 81 mg, oral, Daily with breakfast atorvastatin, 40 mg, oral, Nightly clopidogrel, 75 mg, oral, Daily [Held by provider] colchicine, 0.6 mg, oral, BID [Held by provider] dapagliflozin propanediol, 10 mg, oral, Once Daily enoxaparin, 40 mg, subcutaneous, Daily [Held by provider] furosemide, 80 mg, intravenous, q12h hydrocortisone sodium succinate, 50 mg, intravenous, q6h ABILIO [Held by provider] metoprolol succinate XL, 12.5 mg, oral, Daily mometasone-formoterol, 2 puff, inhalation, BID [Held by provider] spironolactone, 25 mg, oral, Daily Labs: 0 Lab Value Date/Time BUN 40 (H) 04/26/2025304 CREATININE 2.83 (H) 04/26/2025 030 NA 129 (L) 04/26/2025 0305 K 4.2 04/26/2025 0305 PHOS 2.6 04/26/2025 0305 MG 1.8 (L) 04/26/2025 0305 HGB 10.2 (L) 04/26/2025 030 WBC 6.84 04/26/2025 030 CHOL 98 (L) 04/24/2025 0407 HDL 29 04/24/2025 0407 Allergies: Allergies[2] Nutrition Problems: Swallowing Assessment: pt denies swallowing difficulty Mouth: pt denies chewing difficulty Abdominal Assessment: Last BM 04/25/25 x5 c/o loose stool this admission but becoming more solid Appetite: Continues to be decreased Cognition: A/O x4 Feeding Skills: Lives with , good access to food @ home Independently feeds self Skin Integrity: Intact except L elbow skin tear Other Factors: Pericardial effusion - s/p L&R heart cath + pericardiocentesis (04/20/25) RHC suggestive of biventricular failure ECHO (04/23/25) EF 20% Decrease in UOP past 24 hr Assawoman Shannan (04/24/25) Lasix gtt Vasopressor support, dobutamine 5 & norepinephrine 0.3 Nutrition Data/Clinical Indicators of Nutrition Status: Height: 172.7 cm (5' 8 ) Weight: 82.7 kg (182 lb 5.1 oz) BMI (Calculated): 27.73 Wt Readings from Last 10 Encounters: 04/26/25 82.7 kg (182 lb 5.1 oz) 04/03/25 84.8 kg (187 lb) 02/26/25 85.7 kg (189 lb) 02/07/25 84.6 kg (186 lb 9.6 oz) 11/13/24 88 kg (194 lb) 07/03/24 88.9 kg (196 lb) 01/06/24 87.5 kg (193 lb) 06/29/23 86.2 kg (190 lb) 05/11/23 85.3 kg (188 lb) 02/19/23 83 kg (183 lb) IBW: 70 kg UBW: 180-185 lbs per pt Weight change: Pt denies wt changes. endorses noticing some loss over the past few months. Pt denies changes to intakes or new medical issues/outside stressors that may have attributed to loss. 1 month: loss of 3.2 kg / 3.8% / not significant 6 months: loss of 6.4 kg / 7.3% / not significant Nutrition Assessment: 04/20/25: Pt and report following a regular diet at home. They have been conscientious of salt intake for the past few years due to both and pt health conditions. uses no added salt seasoning blends when cooking. They typically consume 1.5 meals/day. Most meals prepared @ home but they do eat out 1x/wk. L: pork chops, mashed potato, vegetable D: smaller meal (Wednesdays = night) 04/26/25: Pt reports intakes ~50% trays. S/o food tastes bland. Taking Boost VHC BID (drinking ~1 carton total). Dietary Orders (From admission, onward) Start Ordered 04/26/25 1236 Dietary nutrition supplements BID; Boost VHC; Chocolate; Other (whole carton); Oral Until discontinued Question Answer Comment Deliver with BID Select supplement: Boost VHC Flavor: Chocolate Strength: Other whole carton Route Oral 04/26/25 1235 04/26/25 0847 Special Kitchen Request Once Comments: Please send: fruit cup. Thank you! 04/26/25 0847 04/24/25 171 Regular Diet Heart Healthy/HTN, CABG,Stroke, (2gNA, low fat, low cholesterol) Diet effective now Question Answer Comment Room Service? Yes Fat restriction: Heart Healthy/HTN, CABG,Stroke, (2gNA, low fat, low cholesterol) 04/24/25 171 Nutrition Risk: Low Nutrition Diagnosis: None at this time Malnutrition Assessment: Per Registered Dietitian assessment and evaluation, patient does not currently meet criteria OR there is not enough information to support the diagnosis of malnutrition per the clinical criteria set by the Academy of Nutrition and Dietetics (AND) and the [place] Society of Enteral and Parenteral Nutrition (ASPEN). Nutrition Education: Provided 04/20/25, denies questions or concerns at this time Diet literature: Heart Healthy Grocery List Low Na diet: avoid added salt, limit eating out Daily wt monitoring Reviewed s/s of exacerbation Smaller, more frequent intakes to prevent unintentional wt loss Expected compliance/patient understanding: Good Teach back method: Verbalized understanding (Pt + ) Time spent: 15 minutes Treatment Plan: Continue Na restricted diet Continue ONS Daily wt monitoring Daily mvi Goals: Adequate po intakes (kcals and protein); >75% meals Understanding of nutrition education/adherence to diet recommendations No significant unintentional wt loss Nutrition-related labs (magnesium, phosphorus, BMP) wnl To reach the Clinical Dietitian, please utilize [email or web address] chat Wednesday-Wednesday from 8AM-4PM or call extension [phone]. For weekends (Wednesday-Wednesday) and holidays, the Clinical Dietitian can be reached via pager ([phone]) from 9AM-3PM. The Clinical Nutrition Department is unable to respond to [email or web address] chat messages on Sundays and holidays. [1] Past Medical History: Diagnosis Date Asthma 07/29/2012 CHF (congestive heart failure) ([facility]) Coronary artery disease History of malignant neoplasm of prostate 07/03/2022 Hypertension 07/03/2022 [2] No Known Allergies * Brenden Vivar MD - 04/26/2025 12:20 PM EDT Images from the original note were not included. Cardiology Progress Note Subjective Subjective: Kristy Doherty is a 69 y.o. male with significant medical history of hypertension, paroxysmal atrial fibrillation s/p Watchman 02/06/2025, chronic HFrEf (25-30%) s/p ICD 08/2022, olecranon bursitis, and CAD who presented to hospital for chest pain. Patient reports having substernal chest pain, radiating to his back and neck since yesterday evening. Patient reports that his blood pressure has been running in the low 90s over 70s over the past couple of weeks. Denies any recent fever or chills/cough. Patient reports being compliant with all his medications. Interval History 04/19/2025: Echocardiogram done showed moderate circumferential pericardial effusion with concerns for early tamponade physiology. 04/20/2025: Cardiac drain in place with minimal serosanguineous fluid (around 50 to 60 mL output) drain removed in the afternoon. 04/21/2025: Labile blood pressures overnight, however improving. 200 cc UOP in last 24 hours, net +3L since admission. Sodium 127, BNP 254 04/22/2025: No notable events 04/23/2025: Patient was seen and examined at bedside. Patient was lying comfortably in bed. Patient denies any chest pain, shortness of breath, PND, dizziness/lightheadedness. No current complaints. BP moderately low at approximately 70-90/65-70 04/24/2025: Patient still being hypotensive and tachycardic, RHC was done for further evaluation. demonstrated elevated wedge pressure and RV pressures. A Assawoman-Shannan catheter was placed for further monitoring andthe patient was transferred to the medical ICU. 04/25/2025: Patient was seen and examined at bedside. No acute complaints. RHC suggestive of biventricular failure. Started on milrinone at 0.25. Telemetry reviewed, PVCs and runs of NSVTs burden noted. SG readings: PA: 32/17 (22) CVP: 12 CO: 5.6 04/26- patient was seen and examined at bedside. Minimal urine output over the past 24 hours. Deniesany acute complaints. Objective: Patient Vitals for the past 24 hrs: BP Temp Temp src Pulse Resp SpO2 Weight 04/26/25 1022 -- -- -- 101 -- -- -- 04/26/25 0700 -- -- -- 89 23 93 % -- 04/26/25 0604 -- -- -- -- -- -- 82.7 kg (182 lb 5.1 oz) 04/26/25 0600 -- -- -- 90 20 92 % -- 04/26/25 0500 -- -- -- 93 23 93 % 82.7 kg (182 lb 5.1 oz) 04/26/25 0400 -- 36.6 ??C (97.9 ??F) Temporal 92 20 93 % -- 04/26/25 0359 -- -- -- -- -- 93 % -- 04/26/25 0349 -- -- -- 90 -- -- -- 04/26/25 0300 -- -- -- 92 24 93 % -- 04/26/25 0220 -- -- -- 109 -- -- -- 04/26/25 0200 -- -- -- 108 20 94 % -- 04/26/25 0100 -- -- -- 96 22 90 % -- 04/26/25 0000 -- 36.4 ??C (97.5 ??F) Temporal 99 24 91 % -- 04/25/252299 -- -- -- 101 21 92 % -- 04/25/252250 -- -- -- 102 -- -- -- 04/25/252225 -- -- -- 102 -- -- -- 04/25/252218 -- -- -- 103 -- -- -- 04/25/252207 -- -- -- 103 -- -- -- 04/25/252199 -- -- -- 103 (!) 31 91 % -- 04/25/252154 -- -- -- 102 -- -- -- 04/25/252152 -- -- -- -- 23 94 % -- 04/25/252114 77/50 -- -- -- -- -- -- 04/25/252099 107/75 -- -- 102 (!) 28 95 % -- 04/25/252044 98/75 -- -- -- -- -- -- 04/25/252029 90/64 -- -- -- -- -- -- 04/25/252016 -- -- -- 102 -- -- -- 04/25/252014 88/75 -- -- -- -- -- -- 04/25/251999 93/66 36.6 ??C (97.9 ??F) Temporal 102 26 92 % -- 04/25/25 1930 101/79 -- -- 101 (!) 27 94 % -- 04/25/251907 -- -- -- 100 -- -- -- 04/25/25 1900 89/56 -- -- 101 20 93 % -- 04/25/25 1835 -- -- -- 92 -- -- -- 04/25/25 1800 97/83 -- -- 100 25 91 % -- 04/25/25 1705 -- -- -- 92 -- -- -- 04/25/25 1700 97/61 -- -- 96 23 93 % -- 04/25/25 1648 -- -- -- 98 -- -- -- 04/25/25 1600 94/73 -- -- 93 22 94 % -- 04/25/25 1541 -- -- -- 94 -- -- -- 04/25/25 1500 94/72 -- -- 91 23 92 % -- 04/25/25 1445 102/73 -- -- 94 22 93 % -- 04/25/25 1433 -- -- -- 95 -- -- -- 04/25/25 1430 89/59 -- -- 94 18 95 % -- 04/25/25 1418 88/61 -- -- 85 21 96 % -- 04/25/25 1415 -- -- -- 87 -- -- -- 04/25/25 1400 -- -- -- 89 17 96 % -- 04/25/25 1332 -- -- -- 88 -- -- -- 04/25/25 1300 85/54 -- -- 90 19 97 % -- Physical Examination: Physical Exam Constitutional: General: He is not in acute distress. Appearance: Normal appearance. He is ill-appearing. HENT: Right Ear: External ear normal. Left Ear: External ear normal. Nose: Nose normal. Eyes: Extraocular Movements: Extraocular movements intact. Cardiovascular: Rate and Rhythm: Regular rhythm. Tachycardia present. Heart sounds: Normal heart sounds. Pulmonary: Breath sounds: Rales present. No wheezing. Abdominal: General: There is no distension. Palpations: Abdomen is soft. Tenderness: There is no abdominal tenderness. Musculoskeletal: Right lower leg: Edema present. Left lower leg: Edema present. Neurological: Mental Status: He is alert and oriented to person, place, and time. Psychiatric: Mood and Affect: Mood normal. Behavior: Behavior normal. Relevant Lab Results Encounter Date: 04/19/25 ECG 12 lead Result Value Ventricular Rate 120 Atrial Rate 120 ME Interval 198 QRS DURATION 102 QT Interval 294 QTC CALCULATION(BAZETT) 415 P Welch 64 R-Welch 38 T Wave Welch 116 Impression Sinus tachycardia Low voltage QRS Septal infarct , age undetermined Abnormal ECG When compared with ECG of 19-APR-2025 18:24, Premature ventricular complexes are no longer Present Confirmed by Jeffy VERNON, MITESH Pruett ([id number]) on 04/23/2025 8:14:48 AM Lab Results Component Value Date TROPONINI 0.04 07/02/2022 Limited Echo (TTE) w/wo Limited Doppler, Color Flow, Imaging Agent, Strain, 3D, Bubble Study Result Date: 04/23/2025 1 1 [facility] Heart Station [address] [place] [address] [phone] (fax) Echocardiogram-[facility] Name: KRISTY DOHERTY Study Date: 04/23/2025 07:26 AM B/P: 90 mmHg/74 mmHg HR: 111 bpm Date of : 1955 Location: [facility] Height: 68 in. Age: 69 year(s) Patient Room: 3183 Weight: 177 lb. Gender: Male Patient Status: InPt BSA: 1.94 m2 Indication: Limited; pericardial effusion, S/P 35 mm Watchman device FLX, S/P Pericardiocentesis, H/O 25-30%, Pacemaker/AICD Examination: Limited Echo/Limited Doppler, Color flow imaging Image Quality: Good Patient Consent: Procedure explained to patient Conclusions Left Ventricle: Global left ventricular systolic function is severely reduced. The EF is 20 % visually. Regional wall motion abnormalities (see diagram). Right Ventricle: Severely reduced right ventricular systolic function. A pacemaker wire is seen in the right ventricle. Doppler studies suggest moderately elevated right sided pressures (elevated pulmonary pressure). Mitral Valve: Mild to moderate mitral regurgitation. Aortic Valve: Mild aortic valve regurgitation. Tricuspid Valve: Moderate tricuspid regurgitation. Overall Conclusions: Decrease in right ventricular systolic function and increase in tricuspid insufficiency when compared to previous study. Measurements Left Ventricle Label Value Normal Value LVEF visual 20 % Tricuspid Valve Label Value Normal Value RA Pressure 8 mmHg RVSP 49 mmHg TR Vmax 3.22 m/s Great Vessels Label Value Normal Value IVC 2 cm (1.2cm - 2.3cm) Valvular Assessment LVOT 0.7 - 1.1 m/sec Aortic Valve 1.0 - 1.7 m/sec Mitral Valve 0.6 - 1.3 m/sec Tricuspid Valve 0.3 - 0.7 m/sec Pulmonic Valve 0.6 - 0.9 m/sec Regurgitation Mild MildMod Moderate Findings Left Ventricle: Global left ventricular systolic function is severely reduced. The EF is 20 % visually. Regional wall motion abnormalities (see diagram). The basal anterior, basal anteroseptal, basal inferoseptal, basal inferior, basal inferolateral, basal anterolateral, mid inferoseptal, mid inferior and mid inferolateral left ventricular wall segments are hypokinetic. The mid anterior, mid anteroseptal, mid anterolateral, apical anterior, apical septal, apical inferior, apical lateral and apex left ventricular wall segments are akinetic. Right Ventricle: The right ventricular free wall is akinetic in the distaltwo- thirds. Severely reduced right ventricular systolic function. A pacemaker wire is seen in the right ventricle. Doppler studies suggest moderately elevated right sided pressures (elevated pulmonary pressure). Mitral Valve: The mitral valve is normal in mobility and thickness. Mild to moderate mitral regurgitation. Aortic Valve: The aortic valve opens well. Mildly sclerosed aortic valve cusps. Mild aortic valve regurgitation. Tricuspid Valve: Normal tricuspid valve. Moderate tricuspid regurgitation. Pulmonic Valve: Pulmonary valve not visualized. Great Vessels: IVC: The IVC is normal in size. There is no inspiratory collapse of the IVC. Pericardium: There is a minimal pericardial effusion. Procedure Staff Reading Group: [facility] Referring Physician: RUDY KING Property Consultant: June Brumfield, DEAN, RVT, RN, BSN Ordering Physician: FANI DENNEY Wall Motion Scores -1 - hyperkinesia, 0 - not evaluated, 1 - normal, 2 - hypokinesia, 3 - akinesia, 4 - dyskinesia Transthoracic echo (TTE) limited Result Date: 04/20/2025 1 1 [facility] Heart Station [address] [place] [address] [phone] (fax) Echocardiogram-[facility] Name: KRISTY DOHERTY Study Date: 04/20/2025 01:28 PM B/P: 83 mmHg/58 mmHg HR: 96 bpm Date of : 1955 Location: [facility] Height: 68 in. Age: 69 year(s) Patient Room: 3183 Weight: 179 lb. Gender: Male Patient Status: InPt BSA: 1.95 m2 Indication: Limited; evaluate pericardial effusion, S/P 35 mm Watchman FLX, H/O EF 25 - 30 %, Pacemaker, Cardiomyopathy Examination: Limited Echo/Limited Doppler, Color flow imaging Image Quality: Good Patient Consent: Procedure explained to patient Conclusions Left Ventricle: Global left ventricular systolic function is severely reduced. The EF is 30 % visually. The septum is abnormal in its motion. Right Ventricle: Right ventricular systolic function appears normal. A pacemaker wire is seen in the right ventricle. Doppler studies suggest normal right sided pressures. Pericardium: No pericardial effusion. Measurements Left Ventricle Label Value Normal Value LVEF visual 30 %Tricuspid Valve Label Value Normal Value RA Pressure 3 mmHg RVSP 24 mmHg TR Vmax 2.29 m/s Great Vessels Label Value Normal Value IVC 1.1 cm (1.2cm - 2.3cm) Valvular Assessment LVOT 0.7 - 1.1 m/sec Aortic Valve 1.0 - 1.7 m/sec Mitral Valve 0.6 - 1.3 m/sec Tricuspid Valve 0.3 - 0.7 m/sec Pulmonic Valve 0.6 - 0.9 m/sec Regurgitation Trivial Trivial Trivial Findings Left Ventricle: Global left ventricular systolic function is severely reduced. The EF is 30 % visually. The septum is abnormal in its motion. All scored left ventricular wall segments are hypokinetic. Right Ventricle: Right ventricular systolic function appears normal. A pacemaker wire is seen in the right ventricle. Doppler studies suggest normal right sided pressures. Mitral Valve: The mitral valve is normal in mobility and thickness. Trivial mitral regurgitation. Aortic Valve: Mildly sclerosed aortic valve cusps. Trivial aortic valve regurgitation. Tricuspid Valve: Normal tricuspid valve. Trivial tricuspid regurgitation. Great Vessels: IVC: The IVC is normal in size. There is inspiratory collapse of the IVC. Pericardium: No pericardial effusion. Procedure Staff Reading Group: [facility] Referring Physician:RUDY KING Property Consultant: June Brumfield RDCS, RVT, RN, BSN Ordering Physician: VENU SAMANIEGO Wall Motion Scores -1 - hyperkinesia, 0 - not evaluated, 1 - normal, 2 - hypokinesia, 3 - akinesia, 4 - dyskinesia Transthoracic echo (TTE) limited Result Date: 04/19/2025 1 1 [facility] Heart Station [address] [place] [address] [phone] (fax) Echocardiogram-[facility] Name: KRISTY DOHERTY Study Date: 04/19/2025 02:13 PM B/P: / HR: Date of : 1955 Location: [facility] Height: 68 in. Age: 69 year(s) Patient Room: 3183 Weight: 182 lb. Gender: Male Patient Status: InPt BSA: 1.96 m2 Indication: pericardialeffusion, h/o 35mm Watchman FLX Examination: Limited Echo Image Quality: Fair Findings Pericardium: Moderate pericardial effusion baseline. Post pericardiocentesis there is minimal pericardial effusion. Procedure Staff Reading Group: [facility] Referring Physician: RUDY KING Property Consultant: SAMI Starr, RDCS Ordering Physician: VENU SAMANIEGO Complete Echo (TTE) w/wo Imaging Agent, Strain, 3D, Bubble Study Result Date: 04/19/2025 1 1 [facility] [facility] [address] [place] [address] [phone] (fax) Echocardiogram-[facility] Name: KRISTY DOHERTY Study Date: 04/19/2025 12:46 PM B/P: 97 mmHg/71 mmHg HR: Date of : 1955 Location: [facility] Height: 68 in. Age: 69 year(s) Patient Room: 3183 Weight: 182 lb. Gender: Male Patient Status: InPt BSA: 1.96 m2 Indication: Chest Pain, s/p 35mm Watchman FLX Examination: Echocardiogram (Complete) ImageQuality: Fair Patient Consent: Procedure explained to patient Conclusions Left Ventricle: The left ventricle is normal size. Global left ventricular systolic function is normal. The EF is 60 % visually. Left ventricular wall thickness is normal. No regional wall motion abnormality. Right Ventricle:The right ventricle appears normal in size. Right ventricular systolic function appears normal. Doppler studies suggest normal right sided pressures. Left Atrium: Watchman device visualized . The left atrium appears normal in size. Aortic Valve: Mild aortic valve regurgitation. Tricuspid Valve: Mild tricuspid regurgitation. Pericardium: There is a moderate circumfrential pericardial effusion. There is also, significant mitral inflow variations consistent with early tamponade physiology. Measurements Left Ventricle Label Value Normal Value LVOT VTI 11.1 cm (18cm - 22cm) LVOT PGmax 3 mmHg LVEF visual 60 % LVOT PGmean 1 mmHg Right Ventricle Label Value Normal Value TAPSE 0.97 cm Aortic Valve Label Value Normal Value AV DVI 0.5 AV VTI 23.1 cm Mitral Valve Label Value Normal Value MV E Vmax 0.54 m/s MV A Vmax 0.79 m/s MV E/A 0.68 MV E/E' lateral 7.6 MV E' lateral 0.07 m/s Tricuspid Valve Label Value Normal Value RA Pressure 3 mmHg RVSP 30 mmHg TR Vmax 2.59 m/s Valvular Assessment LVOT 0.7 - 1.1 m/sec Aortic Valve 1.0 - 1.7 m/sec Mitral Valve 0.6 - 1.3 m/sec Tricuspid Valve 0.3 - 0.7 m/sec Pulmonic Valve 0.6 - 0.9 m/sec Regurgitation Mild No Mild No Max Velocity 0.81 m/sec 1.62 m/s 0.54m/sec 1.02 m/s Max Gradient 10.00 mmHg 4.00 mmHg Mean Gradient 5.00 mmHg Findings Left Ventricle: The left ventricle is normal size. Global left ventricular systolic function is normal. The EF is 60 % visually. Left ventricular wall thickness is normal. No regional wall motion abnormality. Right Ventricle: The right ventricle appears normal in size. Right ventricular systolic function appears normal. Doppler studies suggest normal right sided pressures. Left Atrium: Watchman device visualized .The left atrium appears normal in size. Right Atrium: The right atrium appears normal in size. Mitral Valve: The mitral valve is normal in mobility and thickness. No mitral regurgitation. Aortic Valve: Focal aortic cusp thickening is noted. Mild aortic valve regurgitation. Tricuspid Valve: Normal tricuspid valve. Mild tricuspid regurgitation. Pulmonic Valve: Normal pulmonary valve. No pulmonary regurgitation. Aorta: The aortic root exhibits normal size. Great Vessels: IVC: Normal size and course of the IVC. Pericardium: There is a moderate circumfrential pericardial effusion. There is also, significant mitral inflow variations consistent with early tamponade physiology. Procedure Staff Reading Group: [facility] Property Consultant: Bryanna Cazares RDCS Ordering Physician: HAKAN Canchola signed by MD Mitesh Vernon on 04/19/2025 at 01:44 PM Limited Transthoracic Echo (TTE) w/wo Contrast, Color Flow, Imaging Agent, Strain, 3D, Bubble Study Result Date: 02/07/2025 1 1 [facility] [address] [place] [address] [phone] (fax) Echocardiogram-[facility] Name: KRISTY DOHERTY Study Date: 02/07/2025 08:02 AM B/P: 118 mmHg/85 mmHg HR: 63 bpm Date of : 1955 Location: [facility] Height: 68 in. Age: 69 year(s) Patient Room: 3176 Weight: 186 lb. Gender: Male Patient Status: InPt BSA: 1.98 m2 Indication: Atrial Fibrillation, Pacemaker, s/p 35mm Watchman FLX Examination: Limited Echo, Color flow imaging, Lumason Contrast Image Quality: Fair Patient Consent: Procedure explained to patient Exam Details Contrast: I.V. dose of Lumason Conclusions Left Ventricle: The left ventricle is [...] borders. Well seated 35mm Watchman FLX PRO. Measurements Left VentricleLabel Value Normal Value LVDd, 2D 5.86 cm (4.2cm - 5.9cm) LVDs, 2D 5.21 cm (2.1cm - 4cm) IVSd, 2D 0.91 cm (0.6cm - 1.1cm) LVPWd, 2D 1.06 cm (0.6cm - 1cm) LV Mass, 2D ASE 232.58 g LV Mass Index, 2D ASE 117.5 g/m?? (50g/m?? - 102.4g/m??) RWT, MM 0.36 (0 - 0.42) LVSVI, 2D 20.7 ml/m2 Aorta Label Value Normal Value AoRoot, 2D 3.4 cm (1.4cm - 3.8cm) Valvular Assessment LVOT 0.7 - 1.1 m/sec Aortic Valve1.0 - 1.7 m/sec Mitral Valve 0.6 - 1.3 m/sec Tricuspid Valve 0.3 - 0.7 m/sec Pulmonic Valve 0.6 - 0.9 m/sec Regurgitation Mild trivMil Findings Left Ventricle: The left ventricle is normal size. Global left ventricular systolic function is severely reduced. EF range is estimated at 25 % -30 %. Leftventricular wall thickness is increased. Diffuse global hypokinesis. Right Ventricle: The right ventricle is normal in size. Normal right ventricular systolic function. A pacemaker wire is seen in the right atrium and right ventricle. Left Atrium: The left atrium is normal in size. Right Atrium: The right atrium is normal in size. Mitral Valve: There is nonspecific thickening of the mitral valve leaflet. Trvial to mild mitral regurgitation. Aortic Valve: Focal aortic cusp thickening is noted. Mild aortic valve regurgitation. Tricuspid Valve: Normal tricuspid valve. Pulmonic Valve: Normal pulmonary valve. Aorta: The aortic root exhibits normal size. Great Vessels: IVC: The IVC is normal in size. Pericardium: No pericardial effusion. Procedure Staff Reading Group: [facility] Referring Physician: RUDY KING Property Consultant: SAMI Starr, RDCS Ordering Physician: CHUCK FUNEZ Transesophageal echo (MASON) Result Date: 12/01/2024 1 [facility] Heart [facility] [address] [place] [address] [phone] (fax) Transesophageal Echocardiogram-[facility] Name: KRISTY DOHERTY Study Date: 12/01/2024 12:00 PM B/P: 134 mmHg/87 mmHg HR: 80 bpm Date of : 1955 Location: [facility] Height: 68 in. Age: 69 year(s) Patient Room: Weight: 194 lb. Gender: Male PatientStatus: OutPt BSA: 2.02 m2 Indication: Atrial Fibrillation, Pre-Watchman Examination: MASON, Color flow imaging Image Quality: Excellent Patient Consent: Informed, written consent was obtained for the procedure Exam Location: A MASON was performed in the [facility] without complications Anesthesia Pharyngeal anesthesia with viscous Lidocaine Conclusions Left Ventricle: The left ventricle is normal size. Global left ventricular systolic function is severely reduced. EF range is estimated at 25 % -30 %. Left ventricular wall thickness is normal. Diffuse global hypokinesis. Right Ventricle: The right ventricle appears normal in size. Normal right ventricular systolic function. Left Atrium: The left a trium is severely enlarged. Left Atrium Appendage: The left atrial appendage is monolobular. Normalleft atrial appendage, no thrombus seen. ROBB measutments [...] 50 micrograms Valvular Assessment LVOT 0.7 - 1.1m/sec Aortic Valve 1.0 - 1.7 m/sec Mitral Valve 0.6 - 1.3 m/sec Tricuspid Valve 0.3 - 0.7 m/sec Pulm onic Valve 0.6 - 0.9 m/sec Regurgitation Mod [...] atrium is severely enlarged. Left Atrium Appendage: Theleft atrial appendage is normal. The left atrial [...] is a minimal pericardial effusion. The Attending Ph ysician was present and personally reviewed the examination with the fellow Procedure Staff ReadingGroup: [facility] Referring Physician: RUDY KING Property Consultant: Samaria Oden [facility] Ordering Physician: Hay William MD No nuclear medicine results found for the past 12 months Relevant Imaging Results Cardiac catheterization PROCEDURE PHYSICIAN: Hay William MD . Indications: Kristy Doherty is a 69 y.o. male with ongoing hypotension. His echocardiogram shows reduced left ventricular and right ventricular systolic function. He was referred for right heart catheterization to guide of management. Assistants: None. Procedure Performed: Right heart catheterization. Placement of a DISHWASHER PREPARER Assawoman-Shannan catheter for hemodynamic monitoring. Access into the right internal jugular vein under ultrasound guidance. Methods: Procedure was explained to the patient with risks and benefits; he signed informed consent. he was brought to the lab instructor in a fasting state. The right neck area was prepped and draped in usual fashion. Micropuncture technique was used for access under ultrasound guidance into the right internal jugular vein. A 6-Hungarian x 11 cm sheath was placed. A 6-Hungarian Carrasquillo catheter was used for right heart catheterization and measurement of pressures and calculation of cardiac output using the estimated [place] method. Carrasquillo catheter was removed. Over a wire to the access sheath was upsized to a 9 Hungarian introducer sheath. A DISHWASHER PREPARER Assawoman-Shannan catheter was advanced with the aid of a V18 wire and the distal end of the catheter was advanced to the distal segment of the right pulmonary artery. The Assawoman-Shannan catheter was secured in place. he tolerated the procedure well and was transferred back to the hospital room. Hemodynamic Data: RA: 18 RV: 34/7, 16 PA: 37/24 (30) PCWP: 21 CO: 2.55 CI: 1.3 O2 Sat: PA sat: 33%, AO sat: 96% BP: 89/70 (78) TP PVR: 3.52 Wood units SVR: 1882 Metric units Melanie: 0.72 Cardiac power output: 0.44 Impression/Findings: Moderate elevation of left filling pressures. Moderate to severe elevation of right filling pressures. Moderate pulmonary hypertension. Severely reduced cardiac output and cardiac index. Controlled systemic hypertension. 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 Reduced Melanie consistent with right ventricular failure. Reduced cardiac power output and increased left-sided filling pressures is consistent with left-sided ventricular failure. Findings are consistent with biventricular failure. Successful placement of a DISHWASHER PREPARER Assawoman-Shannan catheter to guide management of heart failure. Plan: Patient will be started on intravenous inotropic therapy. Further recommendations per inpatient Cardiology service. Hay William MD Assessment: Cardiogenic shock,cardiac index 1.3 L/min/m2 , likely secondary to acute heart failure exacerbation Acute right ventricular failure Melanie 0.72 < 1 suggestive of significant RV failure RHC suggestive of biventricular failure Acute on chronic heart failure with reduced ejection fraction s/p ICD placement, NYHA II/III 04/23/2025 echo with EF 20%, severely reduced RV systolic function, mild-moderate MR, mild AV regurg, mild TR, elevated RVSP 49 Non-oliguric acute kidney injury, worsening with decreased urinary output Likely underlying cardiorenal syndrome: type1 Moderate circumferential pericardial effusion s/p RHC and pericardiocentesis (300cc removal) with drain placement on 04/19/25 - unclear etiology, cannot rule out acute pericarditis Pericardial drain removed 04/20 after resolution of effusion on 04/20 echo Repeat echo limited 04/23/2025 with EF 20%, severely reduced RV systolic function, and no inspiratory collapse of IVC (new findings), and minimal pericardial effusion Frequent PVC's and runs of NSVT on telemetry Paroxysmal A-fib [id number] 3 (heart failure, hypertension, age 65-74) s/p Watchman procedure on 02/06/2025 (due to prior bleeding with eliquis) Nonobstructive coronary artery disease Hyperlipidemia (unspecified) on lipitor 40 Plan: Will start patient on inotropic support with dobutamine. Continue to monitor telemetry for arrhythmias. Continue Levophed to maintainsystolic blood pressure greater than 100. Agree with Lasix infusion per nephrology. Continue to monitor urine output. Recommend frequent checking of electrolytes with BMP every 12 hrs while on Lasix drip Aggressive electrolyte replacement to maintain potassium more than 4 and magnesium more than 2 Hold colchicine 0.6 mg in setting of worsening kidney function Continue GDMT as tolerated (currently limited by hypotension) - now on Farxiga 10 mg daily, Toprol-XL 12.5 mg daily. Cardiology will continue to follow. Please call with any questions. Brenden Vivar PGY-4 [employer] [facility] Cosigned by Bebo Dominguez MD at 04/27/2025 9:39 AM EDT Associated attestation - Bebo Dominguez MD - 04/27/2025 9:39 AM EDT By using the attestations below, the signing clinician agrees that I have read and verify that thedocumentation has been personally reviewed by me and ensure that the documentation accurately reflects the encounter. GC: I personally saw this patient on the day of the encounter, performed the gonzáles portion(s) of the service and participated in the management and confirm the resident's documentation. Please note there may be an additional personal documentation from me. Additional Comments: agree Difficult case with acute on chronic HFrEF and now severe LINDA and oliguria Milrinone has partial renal clearance and we were seeing too much PVCs to now switch to dobutamine for inotrope support Also on Levophed for vasopressor support Nephrology managing attempt at diuresis Paroxysmal afib, now on amio gtt Case discussed with MICU team also * Karsten Gage MD - 04/26/2025 9:22 AM EDT Images from the original note were not included. Medical ICU Progress Note Patient - Kristy Doherty Age - 69 y.[facility]. [facility] 1955 [id number] Date of Admission - 04/19/2025 10:46 AM HPI/Hospital Course Subjective Kristy Doherty is an 69 y.o. male who came from [place] with chest pain with radiation to neck andback. Past medical history of heart failure with reduced ejection fraction, hypertension, coronary artery disease, cardiomyopathy nonischemic (AICD placed), hyperlipidemia, atrial fibrillation statuspost Watchman , asthma. Patient presents from [place] with chest pain radiating to the neck and back. He states that chest pain started last night was a constant sharp pain all over his chest. He states that the pain radiated to his neck and back rated pain a 5 out of 10. Patient stated when he was on his right side pain in his neck improved. At outside hospital patient was found to have small pericardial effusion on CT as well as potential atelectasis versus pneumonia. He also had a sodium of 123. His troponins were downtrending and from 11.5-10.5. Patient was also hypotensive at outside hospital which he states he has been hypotensive now for the past 2 weeks. At bedside patientstates that chest pain has improved and is now a 2 out of 10. He still states that chest pain radiates up to his neck. Along with chest pain he complains of fever, sweats, chest pain, shortness of breath, fatigue, weakness. Patient denies chills, palpitations, leg swelling, wheezing abdominal pain,nausea, vomiting, diarrhea, lightheadedness, dizziness, headache, visual changes. Patient was then taken to the catheterization lab for emergent pericardiocentesis due to echo showing signs of cardiac tamponade. A right heart cath, left heart cath and pericardiocentesis were performed. They able to successfully drain the pericardial fluid with significant proven in blood pressure following pericardiocentesis and drain placement. There was minimal drain output and repeat echo showed no pericardial effusions. The patient was being managed by the hospitalist service and plans for discharge were in place, however the patient had recurrence of his pericardial effusion along with hypotension. Repeat echoes showed worsening ejection fraction and severely reduced RV systolic function with no inspiratory collapse of the IVC. Patient was taken back to the catheterization lab for a right heart cath which demonstrated elevated wedge pressure and RV pressures. A Assawoman-Shannan catheter was placed for further monitoring and the patient was transferred to the medical ICU. SUBJECTIVE Patient seen and examined at the bedside. He remains on milrinone and norepinephrine support. Kidney function is worsening. OBJECTIVE Vitals height is 1.727 m (5' 8 ) and weight is 82.7 kg (182 lb 5.1 oz). His temporal temperature is 36.6 ??C (97.9 ??F). His blood pressure is 77/50 and his pulse is 89. His respiration is 23 and oxygen saturation is 93%. Temp: [36.4 ??C (97.5 ??F)-36.6 ??C (97.9 ??F)] 36.6 ??C (97.9 ??F) Heart Rate: [85-109] 89 Resp: [17-31] 23 BP: (77-107)/(50-83) 77/50 Arterial Line BP 1: (96-119)/(62-75) 110/66 Physical Exam: Physical Exam Constitutional: General: He is not in acute distress. Appearance: Normal appearance. He is not ill-appearing. Eyes: Extraocular Movements: Extraocular movements intact. Conjunctiva/sclera: Conjunctivae normal. Pupils: Pupils are equal, round, and reactive to light. Cardiovascular: Rate and Rhythm: Normal rate. Rhythm irregular. Pulses: Normal pulses. Pulmonary: Effort: Pulmonary effort is normal. Breath sounds: Normal breath sounds. Abdominal: General: Abdomen is flat. Palpations: Abdomen is soft. Neurological: General: No focal deficit present. Mental Status: He is alert and oriented to person, place, and time. Weight: Admission weight: 82.6 kg (182 lb) Wt Readings from Last 1 Encounters: 04/26/25 82.7 kg (182 lb 5.1 oz) Input/Output: Intake/Output Summary (Last 24 hours) at 04/26/2025 0922 Last data filed at 04/26/2025 0608 Gross per 24 hour Intake 1006.44 ml Output 415 ml Net 591.44 ml Ventilator: Lab Results ABG: CBC: Results from last 7 days Lab Units 04/26/25 0305 04/25/25 0322 04/24/25 0407 WBC AUTO 10*3/uL 6.84 6.72 5.70 HEMOGLOBIN g/dL 10.2* 10.4* 11.2* HEMATOCRIT % 29.3* 30.2* 33.1* PLATELETS AUTO 10*3/uL 233 205 209 Coagulation: Metabolic Panel: Results from last 7 days Lab Units 04/26/25 0305 04/25/25 1312 04/25/25 0322 04/24/25 0407 POTASSIUM mmol/L 4.2 3.4* 3.7 3.9 CHLORIDE mmol/L 100 99 99 100 CO2 mmol/L 19* 24 24 19* BUN mg/dL 40* 40* 33* 24 CREATININE mg/dL 2.83* 2.96* 2.57* 1.45* GLUCOSE mg/dL 128* 130* 125* 122* CALCIUM mg/dL 7.2* 7.1* 7.5* 8.0* MAGNESIUM mg/dL 1.8* -- 1.9 1.9 Liver Panel: Results from last 7 days Lab Units 04/23/25 0502 04/19/25 1214 ALBUMIN g/dL 3.7 3.8 BILIRUBIN TOTAL mg/dL 0.5 0.7 ALT U/L 18 27 AST U/L 34 22 ALK PHOS U/L 48 51 Glucose: Hgb A1c: Cardiac: Results from last 7 days Lab Units 04/19/25 1825 BNP pg/mL 254* Anemia Labs: Lipid Panel: Results from last 7 days Lab Units 04/24/25 0407 CHOLESTEROL mg/dL 98* HDL mg/dL 29 LDL CALC mg/dL 54 TRIGLYCERIDES mg/dL 75 Urine Labs: No results found for: WBCU , UROBILINOGEN Additional Labs: No lab exists for component: LACTICACID , PROCALCITON Radiology XR chest 1 view Narrative: History: Assessing Assawoman-Shannan catheter Exam/Technique: Portable upright AP chest Comparison: Chest CTA from 04/23/2025. Findings: The tip of the right jugular Assawoman-Shannan catheter appears to overlap when appropriate EKG leads, apparently in the proximal portion of the right main pulmonary artery. No interval change is demonstrated with no new acute pulmonary or pleural abnormalities displayed on this single. Mild cardiomegaly appears unchanged. Cardiac electrical device unchanged. Impression: Tip of the Assawoman-Shannan catheter appears to be in the right main pulmonary artery. No new acute pulmonary abnormalities displayed. Electronically signed: Ralph Mcgovern. Cultures Lab Results Component Value Date BLOOD CULTURE No growth at 5 days 04/20/2025 BLOOD CULTURE No growth at 5 days 04/20/2025 Medications Scheduled: allopurinol, 300 mg, oral, Daily aspirin, 81 mg, oral, Daily with breakfast atorvastatin, 40 mg, oral, Nightly clopidogrel, 75 mg, oral, Daily [Held by provider] colchicine, 0.6 mg, oral, BID [Held by provider] dapagliflozin propanediol, 10 mg, oral, Once Daily enoxaparin, 40 mg, subcutaneous, Daily furosemide, 80 mg, intravenous, q12h [Held by provider] metoprolol succinate XL, 12.5 mg, oral, Daily mometasone-formoterol, 2 puff, inhalation, BID [Held by provider] spironolactone, 25 mg, oral, Daily Infusions: amiodarone, 0.5 mg/min, Last Rate: 0.5 mg/min (04/26/25 0500) milrinone, 0.25 mcg/kg/min, Last Rate: 0.25 mcg/kg/min (04/26/25 0500) norEPINEPHrine, 0.01-2 mcg/kg/min, Last Rate: 0.09 mcg/kg/min (04/26/25 0500) As Needed: PRN medications: acetaminophen, albuterol, melatonin, naloxone OR naloxone OR naloxone, ondansetron ODT OR ondansetron, [Held by provider] sennosides-docusate sodium ASSESSMENT AND PLAN Assessment Cardiogenic shock secondary to circumferential pericardial effusion and cardiac tamponade Chronic heart failure with reduced ejection fraction EF 20% s/p ICD Acute pericarditis Paroxysmal atrial fibrillation Frequent PVCs HTN HLD Plan Cardiogenic shock secondary to circumferential pericardial effusion and cardiac tamponade Chronic heart failure with reduced ejection fraction EF 20% s/p ICD Patient had 300 cc removal with drain placement on 04/19, repeat echo on 04/23 showed severely reduced EF 20% and RV systolic function along with no inspiratory collapse of IVC Pericardial drain was removed on 04/20 due to resolution of effusion Assawoman Shannan placed on 04/24, has showed improvement in CO and CI PA 38/24 PCWP 21 CO 4.2, CI 3.5 Melanie 0.72 Patient is currently on Dobutamine and levophed Added on hydrocortisone Previous Lasix challenges have not produced adequate urine, have started Lasix drip per nephrology Will restart GDMT as appropriate once stable Appreciate cardiology input Acute renal injury, worsening Patient has had increase in creatinine to 2.83 from baseline of normal over the past 2 days Likely is due to combination of shock, cardiorenal syndrome, along with receiving IV contrast a couple days ago. Anticipate improvement once blood pressure stabilizes Bedside bladder ultrasound does not show any acute retention/obstruction Urine studies ordered Nephrology consulted Hyponatremia Likely due to volume overload from cardiogenic shock along with aggressive diuresis Sodium is 129, continuing to trend Urine studies ordered Possible acute pericarditis Could explain the pericardial effusion and tamponade Was on colchicine, but held due to kidney function decline Paroxysmal atrial fibrillation. Controlled CHADSVASC 3 (HTN, CHF, age) Had Watchamn on 01/2025 due to prior Eliquis bleeding Currently on aspirin and Plavix, continuing Rate controlled on Toprol 12.5 BID, continue as BP allows Started amiodarone drip, continuing Frequent PVCs on tele Likely is due to tamponade and current cardiogenic shock Toprol for suppression Continue tele and monitoring Last ABG: None Fluids: PRN Pressor support: Dobutamine, levophed Lines (location & placement): Assawoman Shannan DVT prophylaxis: Heparin subq Diet: Regular Code Status: FULL This progress note was completed using a voice commodities requirements analyst system. Every effort was made to ensure accuracy. However, inadvertent computerized commodities requirements analyst errors may be present. Karsten Gage MD PGY2 IM Resident 04/26/25 9:22 AM Cosigned by Pepe Anthony MD at 04/26/2025 3:19 PM EDT Associated attestation - Pepe Anthony MD - 04/26/2025 3:19 PM EDT I evaluated the patient with the resident/fellow Karsten Gage MD on the same day, agree with thefindings as described with the following additions or corrections: Cardiogenic shock with severely reduced ejection fraction, with continued increase in vasopressor requirement. Currently on Levophed at 0.4 and milrinone. We will stop milrinone and consider epinephrine or dobutamine for inotropic support in this patient with renal failure. Discussed with cardiology on the floor. Assawoman in place, with elevated wedge pressure. Cardiorenal syndrome, with oliguria, starting Lasix infusion, appreciate nephrology recommendations. Patient may need hemodialysis, if continues to be oliguric. Continue monitoring intake and output closely. Monitor for any urgent signs of hemodialysis including electrolyte abnormalities and uremia. Poor prognosis. I personally provided direct critical care services consisting of decision making of high complexity to assess, and support: Cardiogenic shock Acute renal failure Coordination of care with cardiology and to prevent further deterioration for the organ dysfunction. Critical Care minutes were 35, which excludes time performing separately billed procedures, updating family, and teaching. * Karsten Gage MD - 04/25/2025 12:36 PM EDT Images from the original note were not included. Medical ICU Progress Note Patient - Kristy Doherty Age - 69 y.[facility] 1955 [id number] Date of Admission - 04/19/2025 10:46 AM HPI/Hospital Course Subjective Kristy Doherty is an 69 y.o. male who came from [place] with chest pain with radiation to neck andback. Past medical history of heart failure with reduced ejection fraction, hypertension, coronary artery disease, cardiomyopathy nonischemic (AICD placed), hyperlipidemia, atrial fibrillation statuspost Watchman , asthma. Patient presents from [place] with chest pain radiating to the neck and back. He states that chest pain started last night was a constant sharp pain all over his chest. He states that the pain radiated to his neck and back rated pain a 5 out of 10. Patient stated when he was on his right side pain in his neck improved. At outside hospital patient was found to have small pericardial effusion on CT as well as potential atelectasis versus pneumonia. He also had a sodium of 123. His troponins were downtrending and from 11.5-10.5. Patient was also hypotensive at outside hospital which he states he has been hypotensive now for the past 2 weeks. At bedside patientstates that chest pain has improved and is now a 2 out of 10. He still states that chest pain radiates up to his neck. Along with chest pain he complains of fever, sweats, chest pain, shortness of breath, fatigue, weakness. Patient denies chills, palpitations, leg swelling, wheezing abdominal pain,nausea, vomiting, diarrhea, lightheadedness, dizziness, headache, visual changes. Patient was then taken to the catheterization lab for emergent pericardiocentesis due to echo showing signs of cardiac tamponade. A right heart cath, left heart cath and pericardiocentesis were performed. They able to successfully drain the pericardial fluid with significant proven in blood pressure following pericardiocentesis and drain placement. There was minimal drain output and repeat echo showed no pericardial effusions. The patient was being managed by the hospitalist service and plans for discharge were in place, however the patient had recurrence of his pericardial effusion along with hypotension. Repeat echoes showed worsening ejection fraction and severely reduced RV systolic function with no inspiratory collapse of the IVC. Patient was taken back to the catheterization lab for a right heart cath which demonstrated elevated wedge pressure and RV pressures. A Assawoman-Shannan catheter was placed for further monitoring and the patient was transferred to the medical ICU. SUBJECTIVE Patient seen and examined at the bedside. Patient denies any chest pain or difficulty breathing. Increasing pressure support. Assawoman Shannan numbers improving. OBJECTIVE Vitals height is 1.727 m (5' 8 ) and weight is 83.5 kg (184 lb 1.4 oz). His temporal temperature is 36.6 ??C (97.9 ??F). His blood pressure is 94/74 and his pulse is 92. His respiration is 22 and oxygen saturation is 93%. Temp: [36.1 ??C (97 ??F)-36.6 ??C (97.9 ??F)] 36.6 ??C (97.9 ??F) Heart Rate: [80-94] 92 Resp: [15-27] 22 BP: (70-100)/(52-76) 94/74 Physical Exam: Physical Exam Constitutional: General: He is not in acute distress. Appearance: Normal appearance. He is not ill-appearing. Eyes: Extraocular Movements: Extraocular movements intact. Conjunctiva/sclera: Conjunctivae normal. Pupils: Pupils are equal, round, and reactive to light. Cardiovascular: Rate and Rhythm: Normal rate. Rhythm irregular. Pulses: Normal pulses. Pulmonary: Effort: Pulmonary effort is normal. Breath sounds: Normal breath sounds. Abdominal: General: Abdomen is flat. Palpations: Abdomen is soft. Neurological: General: No focal deficit present. Mental Status: He is alert and oriented to person, place, and time. Weight: Admission weight: 82.6 kg (182 lb) Wt Readings from Last 1 Encounters: 04/25/25 83.5 kg (184 lb 1.4 oz) Input/Output: Intake/Output Summary (Last 24 hours) at 04/25/2025 1236 Last data filed at 04/25/2025 1100 Gross per 24 hour Intake 513.4 ml Output 10 ml Net 503.4 ml Ventilator: Lab Results ABG: CBC: Results from last 7 days Lab Units 04/25/25 0322 04/24/25 0407 04/23/25 0502 WBC AUTO 10*3/uL 6.72 5.70 5.60 HEMOGLOBIN g/dL 10.4* 11.2* 11.9* HEMATOCRIT % 30.2* 33.1* 35.0* PLATELETS AUTO 10*3/uL 205 209 223 Coagulation: Metabolic Panel: Results from last 7 days Lab Units 04/25/25 0322 04/24/25 0407 04/23/25 0502 POTASSIUM mmol/L 3.7 3.9 4.1 CHLORIDE mmol/L 99 100 99 CO2 mmol/L 24 19* 26 BUN mg/dL 33* 24 18 CREATININE mg/dL 2.57* 1.45* 1.11 GLUCOSE mg/dL 125* 122* 125* CALCIUM mg/dL 7.5* 8.0* 8.4* MAGNESIUM mg/dL 1.9 1.9 1.6* Liver Panel: Results from last 7 days Lab Units 04/23/25 0502 04/19/25 1214 ALBUMIN g/dL 3.7 3.8 BILIRUBIN TOTAL mg/dL 0.5 0.7 ALT U/L 18 27 AST U/L 34 22 ALK PHOS U/L 48 51 Glucose: Hgb A1c: Cardiac: Results from last 7 days Lab Units 04/19/25 1825 BNP pg/mL 254* Anemia Labs: Lipid Panel: Results from last 7 days Lab Units 04/24/25 0407 CHOLESTEROL mg/dL 98* HDL mg/dL 29 LDL CALC mg/dL 54 TRIGLYCERIDES mg/dL 75 Urine Labs: No results found for: WBCU , UROBILINOGEN Additional Labs: No lab exists for component: LACTICACID , PROCALCITON Radiology Cardiac catheterization PROCEDURE PHYSICIAN: Hay William MD . Indications: Kristy Doherty is a 69 y.o. male with ongoing hypotension. His echocardiogram shows reduced left ventricular and right ventricular systolic function. He was referred for right heart catheterization to guide of management. Assistants: None. Procedure Performed: Right heart catheterization. Placement of a DISHWASHER PREPARER Assawoman-Shannan catheter for hemodynamic monitoring. Access into the right internal jugular vein under ultrasound guidance. Methods: Procedure was explained to the patient with risks and benefits; he signed informed consent. he was brought to the lab instructor in a fasting state. The right neck area was prepped and draped in usual fashion. Micropuncture technique was used for access under ultrasound guidance into the right internal jugular vein. A 6-Hungarian x 11 cm sheath was placed. A 6-Hungarian Carrasquillo catheter was used for right heart catheterization and measurement of pressures and calculation of cardiac output using the estimated [place] method. Carrasquillo catheter was removed. Over a wire to the access sheath was upsized to a 9 Hungarian introducer sheath. A DISHWASHER PREPARER Assawoman-Shannan catheter was advanced with the aid of a V18 wire and the distal end of the catheter was advanced to the distal segment of the right pulmonary artery. The Assawoman-Shannan catheter was secured in place. he tolerated the procedure well and was transferred back to the hospital room. Hemodynamic Data: RA: 18 RV: 34/7, 16 PA: 37/24 (30) PCWP: 21 CO: 2.55 CI: 1.3 O2 Sat: PA sat: 33%, AO sat: 96% BP: 89/70 (78) TP PVR: 3.52 Wood units SVR: 1882 Metric units Melanie: 0.72 Cardiac power output: 0.44 Impression/Findings: Moderate elevation of left filling pressures. Moderate to severe elevation of right filling pressures. Moderate pulmonary hypertension. Severely reduced cardiac output and cardiac index. Controlled systemic hypertension. 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 Reduced Melanie consistent with right ventricular failure. Reduced cardiac power output and increased left-sided filling pressures is consistent with left-sided ventricular failure. Findings are consistent with biventricular failure. Successful placement of a DISHWASHER PREPARER Assawoman-Shannan catheter to guide management of heart failure. Plan: Patient will be started on intravenous inotropic therapy. Further recommendations per inpatient Cardiology service. Hay William MD Cultures Lab Results Component Value Date BLOOD CULTURE No growth at 5 days 04/20/2025 BLOOD CULTURE No growth at 5 days 04/20/2025 Medications Scheduled: allopurinol, 300 mg, oral, Daily aspirin, 81 mg, oral, Daily with breakfast atorvastatin, 40 mg, oral, Nightly clopidogrel, 75 mg, oral, Daily [Held by provider] colchicine, 0.6 mg, oral, BID [Held by provider] dapagliflozin propanediol, 10 mg, oral, Once Daily enoxaparin, 40 mg, subcutaneous, Daily furosemide, 80 mg, intravenous, q12h magnesium oxide, 400 mg, oral, q8h [Held by provider] metoprolol succinate XL, 12.5 mg, oral, Daily mometasone-formoterol, 2 puff, inhalation, BID [Held by provider] spironolactone, 25 mg, oral, Daily Infusions: amiodarone, 0.5 mg/min, Last Rate: 0.5 mg/min (04/25/25 1100) milrinone, 0.5 mcg/kg/min, Last Rate: 0.5 mcg/kg/min (04/25/25 1100) norEPINEPHrine, 0.01-2 mcg/kg/min As Needed: PRN medications: acetaminophen, albuterol, naloxone OR naloxone OR naloxone, ondansetron ODT OR ondansetron, [Held by provider] sennosides- docusate sodium ASSESSMENT AND PLAN Assessment Cardiogenic shock secondary to circumferential pericardial effusion and cardiac tamponade Chronic heart failure with reduced ejection fraction EF 20% s/p ICD Acute pericarditis Paroxysmal atrial fibrillation Frequent PVCs HTN HLD Plan Cardiogenic shock secondary to circumferential pericardial effusion and cardiac tamponade Chronic heart failure with reduced ejection fraction EF 20% s/p ICD Patient had 300 cc removal with drain placement on 04/19, repeat echo on 04/23 showed severely reduced EF 20% and RV systolic function along with no inspiratory collapse of IVC Pericardial drain was removed on 04/20 due to resolution of effusion Assawoman Shannan placed on 04/24, has showed improvement in CO and CI PA 38/24 PCWP 21 CO 4.2, CI 3.5 Melanie 0.72 Patient started on IV inotropic therapy of milrinone, increased to 0.5 Added on levophed for further BP support Currently on Lasix 80mg IV BID, following urine output Will restart GDMT as appropriate once stable Appreciate cardiology input Acute renal injury, worsening Patient has had increase in creatinine to 2.57 from baseline of normal over the past 2 days Likely is due to combination of shock, cardiorenal syndrome, along with receiving IV contrast a couple days ago. Anticipate improvement once blood pressure stabilizes Bedside bladder ultrasound does not show any acute retention/obstruction Urine studies ordered Nephrology consulted Possible acute pericarditis Could explain the pericardial effusion and tamponade Continue colchicine 0.6mg BID and allopurinol 300mg Paroxysmal atrial fibrillation. Controlled CHADSVASC 3 (HTN, CHF, age) Had Watchamn on 01/2025 due to prior Eliquis bleeding Currently on aspirin and Plavix, continuing Rate controlled on Toprol 12.5 BID, continue as BP allows Started amiodarone drip, continuing Frequent PVCs on tele Likely is due to tamponade and current cardiogenic shock Toprol for suppression Continue tele and monitoring Last ABG: None Fluids: PRN Pressor support: Milrinone, levophed Lines (location & placement): Assawoman Shannan DVT prophylaxis: Heparin subq Diet: Regular Code Status: FULL This progress note was completed using a voice commodities requirements analyst system. Every effort was made to ensure accuracy. However, inadvertent computerized commodities requirements analyst errors may be present. Karsten Gage MD PGY2 IM Resident 04/25/25 12:36 PM Cosigned by Pepe Anthony MD at 04/25/2025 6:05 PM EDT Associated attestation - Pepe Anthony MD - 04/25/2025 6:05 PM EDT I evaluated the patient with the resident/fellow Karsten Gage MD on the same day, agree with thefindings as described with the following additions or corrections: Patient has worsening urine output and renal functions. He remained in normotensive cardiogenic shock, midodrine dose was increased leading to drop in the blood pressure. Levophed was added, we will wean milrinone back down. Increase diuresis, if patient does not respond to diuretics, may need hemodialysis. Patient may have developed ATN secondary to poor renal perfusion and contrast received 2 days ago. Acute on chronic HFrEF, unable to diurese, nephrology on board. Performed bedside bladder ultrasound, no significant urine noted. Discussed with patient, cardiology about poor prognosis. I personally provided direct critical care services consisting of decision making of high complexity to assess, and support: Cardiogenic shock Acute renal failure Coordination of care with cardiology and to prevent further deterioration for the organ dysfunction. Critical Care minutes were 40, which excludes time performing separately billed procedures, updating family, and teaching. * Alba Mena MD - 04/25/2025 8:41 AM EDT Images from the original note were not included. Cardiology Progress Note Subjective Subjective: Kristy Doherty is a 69 y.o. male with significant medical history of hypertension, paroxysmal atrial fibrillation s/p Watchman 02/06/2025, chronic HFrEf (25-30%) s/p ICD 08/2022, olecranon bursitis, and CAD who presented to hospital for chest pain. Patient reports having substernal chest pain, radiating to his back and neck since yesterday evening. Patient reports that his blood pressure has been running in the low 90s over 70s over the past couple of weeks. Denies any recent fever or chills/cough. Patient reports being compliant with all his medications. Interval History 04/19/2025: Echocardiogram done showed moderate circumferential pericardial effusion with concerns for early tamponade physiology. 04/20/2025: Cardiac drain in place with minimal serosanguineous fluid (around 50 to 60 mL output) drain removed in the afternoon. 04/21/2025: Labile blood pressures overnight, however improving. 200 cc UOP in last 24 hours, net +3L since admission. Sodium 127, BNP 254 04/22/2025: No notable events 04/23/2025: Patient was seen and examined at bedside. Patient was lying comfortably in bed. Patient denies any chest pain, shortness of breath, PND, dizziness/lightheadedness. No current complaints. BP moderately low at approximately 70-90/65-70 04/24/2025: Patient still being hypotensive and tachycardic, RHC was done for further evaluation. demonstrated elevated wedge pressure and RV pressures. A Assawoman-Shannan catheter was placed for further monitoring andthe patient was transferred to the medical ICU. 04/25/2025: Patient was seen and examined at bedside. No acute complaints. RHC suggestive of biventricular failure. Started on milrinone at 0.25. Telemetry reviewed, PVCs and runs of NSVTs burden noted. SG readings: PA: 32/17 (22) CVP: 12 CO: 5.6 Objective: Patient Vitals for the past 24 hrs: BP Temp Temp src Pulse Resp SpO2 Weight 04/25/25 0832 -- -- -- 84 17 94 % -- 04/25/25 0701 75/54 -- -- 86 20 92 % -- 04/25/25 0600 84/53 -- -- 86 21 93 % -- 04/25/25 0530 95/69 -- -- 87 25 96 % -- 04/25/25 0508 -- -- -- -- -- -- 83.5 kg (184 lb 1.4 oz) 04/25/25 0503 78/53 -- -- -- -- -- -- 04/25/25 0500 -- -- -- 86 15 96 % -- 04/25/25 0430 73/52 -- -- 85 19 -- -- 04/25/25 0400 -- -- -- 85 24 95 % -- 04/25/25 0330 89/62 36.2 ??C (97.2 ??F) Temporal 93 19 95 % -- 04/25/25 0300 83/72 -- -- 84 19 96 % -- 04/25/25 0200 83/54 -- -- 85 22 95 % -- 04/25/25 0103 80/56 -- -- 89 23 100 % -- 04/25/25 0100 -- -- -- 88 21 100 % -- 04/25/25 0005 76/57 -- -- 83 16 95 % -- 04/25/25 0000 70/58 36.5 ??C (97.7 ??F) Temporal 81 22 96 % -- 04/24/25 2330 85/68 -- -- 81 (!) 27 97 % -- 04/24/25 2300 76/54 -- -- 84 22 97 % -- 04/24/25 2206 74/58 -- -- 93 18 96 % -- 04/24/25 220 -- -- -- 89 18 95 % -- 04/24/252106 -- -- -- 80 (!) 27 97 % -- 04/24/25 2100 89/64 -- -- 84 26 98 % -- 04/24/251999 82/66 36.2 ??C (97.2 ??F) Temporal 91 (!) 27 96 % -- 04/24/25 1900 89/70 -- -- 84 22 96 % -- 04/24/25 1800 88/69 -- -- 85 22 99 % -- 04/24/25 1702 -- -- -- -- -- 98 % -- 04/24/25 1700 78/67 -- -- 85 21 95 % -- 04/24/25 1649 86/73 36.1 ??C (97 ??F) -- 89 20 -- -- 04/24/25 1544 91/76 -- -- 88 20 96 % -- 04/24/25 1450 -- -- -- -- -- 98 % -- 04/24/25 1449 96/75 -- -- 94 18 98 % -- 04/24/25 1211 85/68 36.1 ??C (97 ??F) Temporal 88 19 93 % -- 04/24/25 0928 91/ -- -- 106 -- -- -- 04/24/25 0926 77/64 -- -- 100 -- -- -- Physical Examination: Physical Exam Constitutional: General: He is not in acute distress. Appearance: Normal appearance. He is not ill-appearing, toxic-appearing or diaphoretic. HENT: Head: Normocephalic and atraumatic. Right Ear: External ear normal. Left Ear: External ear normal. Nose: Nose normal. Mouth/Throat: Mouth: Mucous membranes are moist. Pharynx: Oropharynx is clear. Eyes: General: No scleral icterus. Right eye: No discharge. Left eye: No discharge. Conjunctiva/sclera: Conjunctivae normal. Pupils: Pupils are equal, round, and reactive to light. Cardiovascular: Rate and Rhythm: Normal rate and regular rhythm. Pulses: Normal pulses. Heart sounds: Normal heart sounds. No murmur heard. Pulmonary: Effort: Pulmonary effort is normal. No respiratory distress. Breath sounds: Normal breath sounds. No stridor. No wheezing, rhonchi or rales. Chest: Chest wall: No tenderness. Abdominal: General: Abdomen is flat. Bowel sounds are normal. There is no distension. Palpations: Abdomen is soft. There is no mass. Tenderness: There is no abdominal tenderness. There is no guarding or rebound. Hernia: No hernia is present. Neurological: General: No focal deficit present. Mental Status: He is alert and oriented to person, place, and time. Mental status is at baseline. Cranial Nerves: No cranial nerve deficit. Sensory: No sensory deficit. Gait: Gait normal. Deep Tendon Reflexes: Reflexes normal. Psychiatric: Mood and Affect: Mood normal. Behavior: Behavior normal. Thought Content: Thought content normal. Judgment: Judgment normal. Relevant Lab Results Encounter Date: 04/19/25 ECG 12 lead Result Value Ventricular Rate 120 Atrial Rate 120 ME Interval 198 QRS DURATION 102 QT Interval 294 QTC CALCULATION(BAZETT) 415 P Welch 64 R-Welch 38 T Wave Welch 116 Impression Sinus tachycardia Low voltage QRS Septal infarct , age undetermined Abnormal ECG When compared with ECG of 19-APR-2025 18:24, Premature ventricular complexes are no longer Present Confirmed by Jeffy VERNON, MITESH Pruett ([id number]) on 04/23/2025 8:14:48 AM Lab Results Component Value Date TROPONINI 0.04 07/02/2022 Limited Echo (TTE) w/wo Limited Doppler, Color Flow, Imaging Agent, Strain, 3D, Bubble Study Result Date: 04/23/2025 1 1 [facility] Heart Station [address] [place] [address] [phone] (fax) Echocardiogram-[facility] Name: KRISTY DOHERTY Study Date: 04/23/2025 07:26 AM B/P: 90 mmHg/74 mmHg HR: 111 bpm Date of : 1955 Location: [facility] Height: 68 in. Age: 69 year(s) Patient Room: 3183 Weight: 177 lb. Gender: Male Patient Status: InPt BSA: 1.94 m2 Indication: Limited; pericardial effusion, S/P 35 mm Watchman device FLX, S/P Pericardiocentesis, H/O 25-30%, Pacemaker/AICD Examination: Limited Echo/Limited Doppler, Color flow imaging Image Quality: Good Patient Consent: Procedure explained to patient Conclusions Left Ventricle: Global left ventricular systolic function is severely reduced. The EF is 20 % visually. Regional wall motion abnormalities (see diagram). Right Ventricle: Severely reduced right ventricular systolic function. A pacemaker wire is seen in the right ventricle. Doppler studies suggest moderately elevated right sided pressures (elevated pulmonary pressure). Mitral Valve: Mild to moderate mitral regurgitation. Aortic Valve: Mild aortic valve regurgitation. Tricuspid Valve: Moderate tricuspid regurgitation. Overall Conclusions: Decrease in right ventricular systolic function and increase in tricuspid insufficiency when compared to previous study. Measurements Left Ventricle Label Value Normal Value LVEF visual 20 % Tricuspid Valve Label Value Normal Value RA Pressure 8 mmHg RVSP 49 mmHg TR Vmax 3.22 m/s Great Vessels Label Value Normal Value IVC 2 cm (1.2cm - 2.3cm) Valvular Assessment LVOT 0.7 - 1.1 m/sec Aortic Valve 1.0 - 1.7 m/sec Mitral Valve 0.6 - 1.3 m/sec Tricuspid Valve 0.3 - 0.7 m/sec Pulmonic Valve 0.6 - 0.9 m/sec Regurgitation Mild MildMod Moderate Findings Left Ventricle: Global left ventricular systolic function is severely reduced. The EF is 20 % visually. Regional wall motion abnormalities (see diagram). The basal anterior, basal anteroseptal, basal inferoseptal, basal inferior, basal inferolateral, basal anterolateral, mid inferoseptal, mid inferior and mid inferolateral left ventricular wall segments are hypokinetic. The mid anterior, mid anteroseptal, mid anterolateral, apical anterior, apical septal, apical inferior, apical lateral and apex left ventricular wall segments are akinetic. Right Ventricle: The right ventricular free wall is akinetic in the distaltwo- thirds. Severely reduced right ventricular systolic function. A pacemaker wire is seen in the right ventricle. Doppler studies suggest moderately elevated right sided pressures (elevated pulmonary pressure). Mitral Valve: The mitral valve is normal in mobility and thickness. Mild to moderate mitral regurgitation. Aortic Valve: The aortic valve opens well. Mildly sclerosed aortic valve cusps. Mild aortic valve regurgitation. Tricuspid Valve: Normal tricuspid valve. Moderate tricuspid regurgitation. Pulmonic Valve: Pulmonary valve not visualized. Great Vessels: IVC: The IVC is normal in size. There is no inspiratory collapse of the IVC. Pericardium: There is a minimal pericardial effusion. Procedure Staff Reading Group: [facility] Referring Physician: RUDY KING Property Consultant: June Brumfield, DEAN, RVT, RN, BSN Ordering Physician: FANI DENNEY Wall Motion Scores -1 - hyperkinesia, 0 - not evaluated, 1 - normal, 2 - hypokinesia, 3 - akinesia, 4 - dyskinesia Transthoracic echo (TTE) limited Result Date: 04/20/2025 1 1 [facility] Heart Station [address] [place] [address] [phone] (fax) Echocardiogram-[facility] Name: KRISTY DOHERTY Study Date: 04/20/2025 01:28 PM B/P: 83 mmHg/58 mmHg HR: 96 bpm Date of : 1955 Location: [facility] Height: 68 in. Age: 69 year(s) Patient Room: [facility] Weight: 179 lb. Gender: Male Patient Status: InPt BSA: 1.95 m2 Indication: Limited; evaluate pericardial effusion, S/P 35 mm Watchman FLX, H/O EF 25 - 30 %, Pacemaker, Cardiomyopathy Examination: Limited Echo/Limited Doppler, Color flow imaging Image Quality: Good Patient Consent: Procedure explained to patient Conclusions Left Ventricle: Global left ventricular systolic function is severely reduced. The EF is 30 % visually. The septum is abnormal in its motion. Right Ventricle: Right ventricular systolic function appears normal. A pacemaker wire is seen in the right ventricle. Doppler studies suggest normal right sided pressures. Pericardium: No pericardial effusion. Measurements Left Ventricle Label Value Normal Value LVEF visual 30 %Tricuspid Valve Label Value Normal Value RA Pressure 3 mmHg RVSP 24 mmHg TR Vmax 2.29 m/s Great Vessels Label Value Normal Value IVC 1.1 cm (1.2cm - 2.3cm) Valvular Assessment LVOT 0.7 - 1.1 m/sec Aortic Valve 1.0 - 1.7 m/sec Mitral Valve 0.6 - 1.3 m/sec Tricuspid Valve 0.3 - 0.7 m/sec Pulmonic Valve 0.6 - 0.9 m/sec Regurgitation Trivial Trivial Trivial Findings Left Ventricle: Global left ventricular systolic function is severely reduced. The EF is 30 % visually. The septum is abnormal in its motion. All scored left ventricular wall segments are hypokinetic. Right Ventricle: Right ventricular systolic function appears normal. A pacemaker wire is seen in the right ventricle. Doppler studies suggest normal right sided pressures. Mitral Valve: The mitral valve is normal in mobility and thickness. Trivial mitral regurgitation. Aortic Valve: Mildly sclerosed aortic valve cusps. Trivial aortic valve regurgitation. Tricuspid Valve: Normal tricuspid valve. Trivial tricuspid regurgitation. Great Vessels: IVC: The IVC is normal in size. There is inspiratory collapse of the IVC. Pericardium: No pericardial effusion. Procedure Staff Reading Group: [facility] Referring Physician:RUDY KING Property Consultant: June Brumfield RDCS, RVT, RN, BSN Ordering Physician: VENU SAMANIEGO Wall Motion Scores -1 - hyperkinesia, 0 - not evaluated, 1 - normal, 2 - hypokinesia, 3 - akinesia, 4 - dyskinesia Transthoracic echo (TTE) limited Result Date: 04/19/2025 1 1 [place] [facility] Vascular [facility] Heart Station [address] [facility] [address] [phone] (fax) Echocardiogram-[facility] Name: KRISTY DOHERTY Study Date: 04/19/2025 02:13 PM B/P: / HR: Date of : 1955 Location: [facility] Height: 68 in. Age: 69 year(s) Patient Room: 3183 Weight: 182 lb. Gender: Male Patient Status: InPt BSA: 1.96 m2 Indication: pericardialeffusion, h/o 35mm Watchman FLX Examination: Limited Echo Image Quality: Fair Findings Pericardium: Moderate pericardial effusion baseline. Post pericardiocentesis there is minimal pericardial effusion. Procedure Staff Reading Group: [facility] Referring Physician: RUDY KING Property Consultant: SAMI Starr, RDCS Ordering Physician: VENU SAMANIEGO Complete Echo (TTE) w/wo Imaging Agent, Strain, 3D, Bubble Study Result Date: 04/19/2025 1 1 [place] [facility] Vascular [facility] Heart Station [address] [facility] [address] [phone] (fax) Echocardiogram-[facility] Name: KRISTY DOHERTY Study Date: 04/19/2025 12:46 PM B/P: 97 mmHg/71 mmHg HR: Date of : 1955 Location: [facility] Height: 68 in. Age: 69 year(s) Patient Room: 3183 Weight: 182 lb. Gender: Male Patient Status: InPt BSA: 1.96 m2 Indication: Chest Pain, s/p 35mm Watchman FLX Examination: Echocardiogram (Complete) ImageQuality: Fair Patient Consent: Procedure explained to patient Conclusions Left Ventricle: The left ventricle is normal size. Global left ventricular systolic function is normal. The EF is 60 % visually. Left ventricular wall thickness is normal. No regional wall motion abnormality. Right Ventricle:The right ventricle appears normal in size. Right ventricular systolic function appears normal. Doppler studies suggest normal right sided pressures. Left Atrium: Watchman device visualized . The left atrium appears normal in size. Aortic Valve: Mild aortic valve regurgitation. Tricuspid Valve: Mild tricuspid regurgitation. Pericardium: There is a moderate circumfrential pericardial effusion. There is also, significant mitral inflow variations consistent with early tamponade physiology. Measurements Left Ventricle Label Value Normal Value LVOT VTI 11.1 cm (18cm - 22cm) LVOT PGmax 3 mmHg LVEF visual 60 % LVOT PGmean 1 mmHg Right Ventricle Label Value Normal Value TAPSE 0.97 cm Aortic Valve Label Value Normal Value AV DVI 0.5 AV VTI 23.1 cm Mitral Valve Label Value Normal Value MV E Vmax 0.54 m/s MV A Vmax 0.79 m/s MV E/A 0.68 MV E/E' lateral 7.6 MV E' lateral 0.07 m/s Tricuspid Valve Label Value Normal Value RA Pressure 3 mmHg RVSP 30 mmHg TR Vmax 2.59 m/s Valvular Assessment LVOT 0.7 - 1.1 m/sec Aortic Valve 1.0 - 1.7 m/sec Mitral Valve 0.6 - 1.3 m/sec Tricuspid Valve 0.3 - 0.7 m/sec Pulmonic Valve 0.6 - 0.9 m/sec Regurgitation Mild No Mild No Max Velocity 0.81 m/sec 1.62 m/s 0.54m/sec 1.02 m/s Max Gradient 10.00 mmHg 4.00 mmHg Mean Gradient 5.00 mmHg Findings Left Ventricle: The left ventricle is normal size. Global left ventricular systolic function is normal. The EF is 60 % visually. Left ventricular wall thickness is normal. No regional wall motion abnormality. Right Ventricle: The right ventricle appears normal in size. Right ventricular systolic function appears normal. Doppler studies suggest normal right sided pressures. Left Atrium: Watchman device visualized .The left atrium appears normal in size. Right Atrium: The right atrium appears normal in size. Mitral Valve: The mitral valve is normal in mobility and thickness. No mitral regurgitation. Aortic Valve: Focal aortic cusp thickening is noted. Mild aortic valve regurgitation. Tricuspid Valve: Normal tricuspid valve. Mild tricuspid regurgitation. Pulmonic Valve: Normal pulmonary valve. No pulmonary regurgitation. Aorta: The aortic root exhibits normal size. Great Vessels: IVC: Normal size and course of the IVC. Pericardium: There is a moderate circumfrential pericardial effusion. There is also, significant mitral inflow variations consistent with early tamponade physiology. Procedure Staff Reading Group: [facility] Property Consultant: Bryanna Cazares RDCS Ordering Physician: HAKAN Canchola signed by MD Mitesh Vernon on 04/19/2025 at 01:44 PM Limited Transthoracic Echo (TTE) w/wo Contrast, Color Flow, Imaging Agent, Strain, 3D, Bubble Study Result Date: 02/07/2025 1 1 [place] [facility] Heart Station [address] [place] [address] [phone] (fax) Echocardiogram-[facility] Name: KRISTY DOHERTY Study Date: 02/07/2025 08:02 AM B/P: 118 mmHg/85 mmHg HR: 63 bpm Date of : 1955 Location: [facility] Height: 68 in. Age: 69 year(s) Patient Room: 3176 Weight: 186 lb. Gender: Male Patient Status: InPt BSA: 1.98 m2 Indication: Atrial Fibrillation, Pacemaker, s/p 35mm Watchman FLX Examination: Limited Echo, Color flow imaging, Lumason Contrast Image Quality: Fair Patient Consent: Procedure explained to patient Exam Details Contrast: I.V. dose of Lumason Conclusions Left Ventricle: The left ventricle is [...] Aortic Valve: Mild aortic valve regurgitation. Overall C onclusions: Due to suboptimal imaging Lumason contrast was administered for opacification and better delineation of endocardial borders. Well seated 35mm Watchman FLX PRO. Measurements Left VentricleLabel Value Normal Value LVDd, 2D 5.86 cm (4.2cm - 5.9cm) LVDs, 2D 5.21 cm (2.1cm - 4cm) IVSd, 2D 0.91 cm (0.6cm - 1.1cm) LVPWd, 2D 1.06 cm (0.6cm - 1cm) LV Mass, 2D ASE 232.58 g LV Mass Index, 2D ASE 117.5 g/m?? (50g/m?? - 102.4g/m??) RWT, MM 0.36 (0 - 0.42) LVSVI, 2D 20.7 ml/m2 Aorta Label Value Normal Value AoRoot, 2D 3.4 cm (1.4cm - 3.8cm) Valvular Assessment LVOT 0.7 - 1.1 m/sec Aortic Valve1.0 - 1.7 m/sec Mitral Valve 0.6 - 1.3 m/sec Tricuspid Valve 0.3 - 0.7 m/sec Pulmonic Valve 0.6 - 0.9 m/sec Regurgitation Mild trivMil Findings Left Ventricle: The left ventricle is normal size. Global left ventricular systolic function is severely reduced. EF range is estimated at 25 % -30 %. Leftventricular wall thickness is increased. Diffuse global hypokinesis. Right Ventricle: The right ventricle is normal in size. Normal right ventricular systolic function. A pacemaker wire is seen in the right atrium and right ventricle. Left Atrium: The left atrium is normal in size. Right Atrium: The right atrium is normal in size. Mitral Valve: There is nonspecific thickening of the mitral valve leaflet. Trvial to mild mitral regurgitation. Aortic Valve: Focal aortic cusp thickening is noted. Mild aortic valve regurgitation. Tricuspid Valve: Normal tricuspid valve. Pulmonic Valve: Normal pulmonary valve. Aorta: The aortic root exhibits normal size. Great Vessels: IVC: The IVC is normal in size. Pericardium: No pericardial effusion. Procedure Staff Reading Group: [facility] Referring Physician: RUDY KING Property Consultant: SAMI Starr, RDCS Ordering Physician: CHUCK FUNEZ Transesophageal echo (MASON) Result Date: 12/01/2024 1 [place] [facility] Heart Station [address] [place] [address] [phone]) Transesophageal Echocardiogram-[facility] Name: KRISTY DOHERTY Study Date: 12/01/2024 12:00 PM B/P: 134 mmHg/87 mmHg HR: 80 bpm Date of : 1955 Location: [facility] Height: 68 in. Age: 69 year(s) Patient Room: Weight: 194 lb. Gender: Male PatientStatus: OutPt BSA: 2.02 m2 Indication: Atrial Fibrillation, Pre-Watchman Examination: MASON, Color flow imaging Image Quality: Excellent Patient Consent: Informed, written consent was obtained for the procedure Exam Location: A MASON was performed in the [facility] without complications Anesthesia Pharyngeal anesthesia with viscous Lidocaine Conclusions Left Ventricle: The left ventricle is normal size. Global left ventricular systolic function is severely reduced. EF range is estimated at 25 % -30 %. Left ventricular wall thickness is normal. Diffuse global hypokinesis. Right Ventricle: The right ventricle appears normal in size. Normal right ventricular systolic function. Left Atrium: The left a trium is severely enlarged. Left Atrium Appendage: The left atrial appendage is monolobular. Normalleft atrial appendage, no thrombus seen. ROBB measutments [...] 50 micrograms Valvular Assessment LVOT 0.7 - 1.1m/sec Aortic Valve 1.0 - 1.7 m/sec Mitral Valve 0.6 - 1.3 m/sec Tricuspid Valve 0.3 - 0.7 m/sec Pulm onic Valve 0.6 - 0.9 m/sec Regurgitation Mod [...] atrium is severely enlarged. Left Atrium Appendage: Theleft atrial appendage is normal. The left atrial [...] is a minimal pericardial effusion. The Attending Ph ysician was present and personally reviewed the examination with the fellow Procedure Staff ReadingGroup: [facility] Referring Physician: RUDY KING Property Consultant: DORIAN Walker Ordering Physician: Hay William MD No nuclear medicine results found for the past 12 months Relevant Imaging Results Cardiac catheterization PROCEDURE PHYSICIAN: Hay William MD . Indications: Kristy Doherty is a 69 y.o. male with ongoing hypotension. His echocardiogram shows reduced left ventricular and right ventricular systolic function. He was referred for right heart catheterization to guide of management. Assistants: None. Procedure Performed: Right heart catheterization. Placement of a DISHWASHER PREPARER Assawoman-Shannan catheter for hemodynamic monitoring. Access into the right internal jugular vein under ultrasound guidance. Methods: Procedure was explained to the patient with risks and benefits; he signed informed consent. he was brought to the lab instructor in a fasting state. The right neck area was prepped and draped in usual fashion. Micropuncture technique was used for access under ultrasound guidance into the right internal jugular vein. A 6-Hungarian x 11 cm sheath was placed. A 6-Hungarian Carrasquillo catheter was used for right heart catheterization and measurement of pressures and calculation of cardiac output using the estimated [place] method. Carrasquillo catheter was removed. Over a wire to the access sheath was upsized to a 9 Hungarian introducer sheath. A DISHWASHER PREPARER Assawoman-Shannan catheter was advanced with the aid of a V18 wire and the distal end of the catheter was advanced to the distal segment of the right pulmonary artery. The Assawoman-Shannan catheter was secured in place. he tolerated the procedure well and was transferred back to the hospital room. Hemodynamic Data: RA: 18 RV: 34/7, 16 PA: 37/24 (30) PCWP: 21 CO: 2.55 CI: 1.3 O2 Sat: PA sat: 33%, AO sat: 96% BP: 89/70 (78) TP PVR: 3.52 Wood units SVR: 1882 Metric units Melanie: 0.72 Cardiac power output: 0.44 Impression/Findings: Moderate elevation of left filling pressures. Moderate to severe elevation of right filling pressures. Moderate pulmonary hypertension. Severely reduced cardiac output and cardiac index. Controlled systemic hypertension. 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 Reduced Melanie consistent with right ventricular failure. Reduced cardiac power output and increased left-sided filling pressures is consistent with left-sided ventricular failure. Findings are consistent with biventricular failure. Successful placement of a DISHWASHER PREPARER Assawoman-Shannan catheter to guide management of heart failure. Plan: Patient will be started on intravenous inotropic therapy. Further recommendations per inpatient Cardiology service. Hay William MD Assessment: Cardiogenic Shock RHC suggestive of biventricular failure Acute on chronic heart failure with reduced ejection fraction s/p ICD placement 04/23/2025 echo with EF 20%, severely reduced RV systolic function, mild-moderate MR, mild AV regurg, mild TR, elevated RVSP 49 Acute right ventricular failure Melanie 0.72 < 1 suggestive of significant RV failure Non-oliguric acute kidney injury Likely underlying cardiorenal syndrome: type1 Moderate circumferential pericardial effusion s/p RHC, LHC and pericardiocentesis (300cc removal) with drain placement on 04/19/25 - unclear etiology, cannot rule out acute pericarditis Pericardial drain removed 04/20 after resolution of effusion on 04/20 echo Repeat echo limited 04/23/2025 with EF 20%, severely reduced RV systolic function, and no inspiratory collapse of IVC (new findings), and minimal pericardial effusion Frequent PVC's and runs of NSVT on telemetry Paroxysmal A-fib [id number] 3 (heart failure, hypertension, age 65-74) s/p Watchman procedure on 02/06/2025 (due to prior bleeding with eliquis) Nonobstructive coronary artery disease Hyperlipidemia (unspecified) on lipitor 40 Plan: Swanz-shannan measurements noted: PA: 32/17 (),CVP: 12,CO: 5.6 Will start levophed and up titrate for systolic blood pressure greater than 100. Telemetry was reviewed, patient had runs of NSVTs. Will keep milrinone at a fixed rate of 0.25 given its pro arrhythmogenic propensity. Continue IV lasix 80 mg bid Hold colchicine 0.6 mg in setting of worsening kidney function Continue GDMT as tolerated (currently limited by hypotension) - now on Farxiga 10 mg daily, Toprol-XL 12.5 mg daily Consult nephrology, appreciate further recommendations Will need event monitor on discharge given frequent PVC's on telemetry Continue to monitor electrolytes. Maintain potassium more than 4 magnesium more than 2. Cardiology will continue to follow. Please call with any questions. Alba Mena MD PGY-3 Internal Medicine Resident [facility] Cosigned by Bebo Dominguez MD at 04/25/2025 5:54 PM EDT Associated attestation - Bebo Dominguez MD - 04/25/2025 5:54 PM EDT By using the attestations below, the signing clinician agrees that I have read and verify that thedocumentation has been personally reviewed by me and ensure that the documentation accurately reflects the encounter. GC: I personally saw this patient on the day of the encounter, performed the gonzáles portion(s) of the service and participated in the management and confirm the resident's documentation. Please note there may be an additional personal documentation from me. Additional Comments: agree right heart catheterization findings personally reviewed Evidence of cardiogenic shock (cardiac index 1.3 L/min/m2) and RV failure with Melanie less than 1 Patient transferred to MICU and Assawoman-Shannan in place and started on milrinone Unfortunately he developed LINDA today He has been hypotensive with blood pressures in the 70s to 90s mmHg systolic Today we started Levophed for vasopressor support. Milrinone has some vasodilation and this may contribute to hypotension so that is why we added the vasopressor support with Levophed For now we recommend continuing milrinone at a fixed dose of 0.25 mcg/kg/min And titrate levophed as needed to maintain SBP 100-120 mmHg appreciate nephrology and MICU input Agree with ongoing attempts at diuresis Suppress afib with amiodarone Hold colchicine and other renally cleared meds due to LINDA Difficult case with cardiogenic shock, RV failure, LINDA, afib Total critical care time: 36 minutes Critical care required for: Cardiogenic shock RV failure LINDA Assessment of hemodynamics at the bedside with Assawoman-shannan catheter * Benedict Pascual MD - 04/24/2025 4:09 PM EDT Images from the original note were not included. Hospital Medicine Daily Progress Note - 04/24/2025 4:09 PM; Room: [id number]- Admission: 04/19/2025 10:46 AM; Length of stay: 5 days THE HOSPITALIST TEAM PREFERS TO USE [employer] CHAT FOR NON-URGENT COMMUNICATION 7AM- 7PM. IF I DO NOT RESPOND WITHIN 20 MINUTES OR URGENT MATTERS, PLEASE CALL THROUGH THE CLINICAL LAB SPECIALIST. FROM 7PM-7AM, PLEASE PAGE [phone](COVR). Code Status: Full Code Barriers to Discharge: Hypotensive and tachycardic. Cath today Expected Discharge Date: Discharge Destination: home Overview Patient is seen for evaluation and management of pericardial effusion, concern for tamponade, hypotension. Subjective Patient is mildly hypotensive. Denies dizziness, CP, SOB, N/V. HR is improving. Physical Exam Visit Vitals BP 91/76 Pulse 88 Temp 36.1 ??C (97 ??F) (Temporal) Resp 20 Intake/Output Summary (Last 24 hours) at 04/24/2025 1609 Last data filed at 04/24/2025 1543 Gross per 24 hour Intake 447.5 ml Output 10 ml Net 437.5 ml Physical Exam Cardiovascular: Rate and Rhythm: Normal rate and regular rhythm. Pulmonary: Effort: Pulmonary effort is normal. Breath sounds: Normal breath sounds. Abdominal: General: Abdomen is flat. Palpations: Abdomen is soft. Neurological: General: No focal deficit present. Mental Status: He is alert and oriented to person, place, and time. Estimated body mass index is 27.46 kg/m?? as calculated from the following: Height as of this encounter: 1.727 m (5' 8 ). Weight as of this encounter: 81.9 kg (180 lb 9.6 oz). Assessment and Plan Assessment & Plan Right ventricular dysfunction - CTA chest showed no PE. - Right cath today. Chest pain Pericardial effusion - Echo showed early tamponade. Patient was taken to lab instructor for Pericardiocentesis. Right heart cath was not suggestive for tamponade. 300 ml serosanguinous fluid. - Monitor BP. - Continue colchicine per Cardiology. - Repeated echo showed mild effusion. Cardiomyopathy (CMS/HCC) Heart failure with reduced ejection fraction (CMS/HCC) ICD (implantable cardioverter-defibrillator) in place - Nonischemic cardiomyopathy. - Echo this admission showed EF 20%. - Continue Toprol and Farxiga. - Hold Entresto and spironolactone due to hypotension. - Right cath today. Atrial fibrillation (CMS/HCC) - Currently paced. - Status post Watchman. - Continue aspirin and Plavix. Uncomplicated asthma - Albuterol and switched from his Advair to our equivalent. Primary hypertension Hypotension due to hypovolemia Sinus tachycardia - Continue Toprol. - Hold Entresto and spironolactone due to hypotension. 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 - Continue aspirin, Plavix, Lipitor. Nutrition Screen: Malnutrition Attestation: No dietitian assessment is available at this time. VTE Prophylaxis: Lovenox Scheduled Meds allopurinol, 300 mg, oral, Daily aspirin, 81 mg, oral, Daily with breakfast atorvastatin, 40 mg, oral, Nightly clopidogrel, 75 mg, oral, Daily colchicine, 0.6 mg, oral, BID dapagliflozin propanediol, 10 mg, oral, Once Daily enoxaparin, 40 mg, subcutaneous, Daily metoprolol succinate XL, 12.5 mg, oral, Daily mometasone-formoterol, 2 puff, inhalation, BID [Held by provider] spironolactone, 25 mg, oral, Daily milrinone, 0.25 mcg/kg/min Pertinent Investigations Hematology: Results from last 7 days Lab Units 04/24/25 04004/23/25 05004/20/25 0515 04/19/25 1444 CRP mg/L -- 39.4* -- 145.7* WBC AUTO 10*3/uL 5.70 5.60 < > -- HEMOGLOBIN g/dL 11.2* 11.9* < > -- HEMATOCRIT % 33.1* 35.0* < > -- MCV fL 94.0 93.8 < > -- PLATELETS AUTO 10*3/uL 209 223 < > -- < > = values in this interval not displayed. Chemistry: Results from last 7 days Lab Units 04/24/25 04004/23/25 0502 04/20/25 0515 SODIUM mmol/L 131* 134* 127* POTASSIUM mmol/L 3.9 4.1 3.9 CHLORIDE mmol/L 100 99 93* CO2 mmol/L 19* 26 26 BUN mg/dL 24 18 16 CREATININE mg/dL 1.45* 1.11 0.94 GLUCOSE mg/dL 122* 125* 127* MAGNESIUM mg/dL 1.9 1.6* -- CALCIUM mg/dL 8.0* 8.4* 8.8 Results from last 7 days Lab Units 04/23/25 0502 04/19/25 1214 AST U/L 34 22 ALT U/L 18 27 ALK PHOS U/L 48 51 BILIRUBIN TOTAL mg/dL 0.5 0.7 Historical Values: (Includes values prior to this admission) Lab Results Component Value Date CORTISOL 11.2 04/20/2025 HDL 29 04/24/2025 LDL 69 04/24/2025 No results found for: UPMXHGSU05 , IRON , TIBC , C3 , C4 , COLLIN , CANCA , ASO , PSA , CEA , CA125 , CA199 , AFP , CA153 Imaging Cardiac catheterization PROCEDURE PHYSICIAN: Hay William MD . Indications: Kristy Doherty is a 69 y.o. male with ongoing hypotension. His echocardiogram shows reduced left ventricular and right ventricular systolic function. He was referred for right heart catheterization to guide of management. Assistants: None. Procedure Performed: Right heart catheterization. Placement of a DISHWASHER PREPARER Assawoman-Shannan catheter for hemodynamic monitoring. Access into the right internal jugular vein under ultrasound guidance. Methods: Procedure was explained to the patient with risks and benefits; he signed informed consent. he was brought to the lab instructor in a fasting state. The right neck area was prepped and draped in usual fashion. Micropuncture technique was used for access under ultrasound guidance into the right internal jugular vein. A 6-Hungarian x 11 cm sheath was placed. A 6-Hungarian Carrasquillo catheter was used for right heart catheterization and measurement of pressures and calculation of cardiac output using the estimated [place] method. Carrasquillo catheter was removed. Over a wire to the access sheath was upsized to a 9 Hungarian introducer sheath. A DISHWASHER PREPARER Assawoman-Shannan catheter was advanced with the aid of a V18 wire and the distal end of the catheter was advanced to the distal segment of the right pulmonary artery. The Assawoman-Shannan catheter was secured in place. he tolerated the procedure well and was transferred back to the hospital room. Hemodynamic Data: RA: 18 RV: 34/7, 16 PA: 37/24 (30) PCWP: 21 CO: 2.55 CI: 1.3 O2 Sat: PA sat: 33%, AO sat: 96% BP: 89/70 (78) TP PVR: 3.52 Wood units SVR: 1882 Metric units Melanie: 0.72 Cardiac power output: 0.44 Impression/Findings: Moderate elevation of left filling pressures. Moderate to severe elevation of right filling pressures. Moderate pulmonary hypertension. Severely reduced cardiac output and cardiac index. Controlled systemic hypertension. 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 Reduced Melanie consistent with right ventricular failure. Reduced cardiac power output and increased left-sided filling pressures is consistent with left-sided ventricular failure. Findings are consistent with biventricular failure. Successful placement of a DISHWASHER PREPARER Assawoman-Shannan catheter to guide management of heart failure. Plan: Patient will be started on intravenous inotropic therapy. Further recommendations per inpatient Cardiology service. Hay William MD Discharge Planning Expected Discharge Disposition: Home or Self Care (01) (pending clinical course) Signed Benedict Pascual MD [facility] Medicine 04/24/2025 4:09 PM * Felicita Mooney MD - 04/24/2025 9:02 AM EDT Cardiology Progress Note Subjective Subjective: Kristy Doherty is a 69 y.o. male with significant medical history of hypertension, paroxysmal atrial fibrillation s/p Watchman 02/06/2025, chronic HFrEf (25-30%) s/p ICD 08/2022, olecranon bursitis, and CAD who presented to hospital for chest pain. Patient reports having substernal chest pain, radiating to his back and neck since yesterday evening. Patient reports that his blood pressure has been running in the low 90s over 70s over the past couple of weeks. Denies any recent fever or chills/cough. Patient reports being compliant with all his medications. Interval History 04/19/2025: Echocardiogram done showed moderate circumferential pericardial effusion with concerns for early tamponade physiology. 04/20/2025: Cardiac drain in place with minimal serosanguineous fluid (around 50 to 60 mL output) drain removed in the afternoon. 04/21/2025: Labile blood pressures overnight, however improving. 200 cc UOP in last 24 hours, net +3L since admission. Sodium 127, BNP 254 04/22/2025: No notable events 04/23/2025: Patient was seen and examined at bedside. Patient was lying comfortably in bed. Patient denies any chest pain, shortness of breath, PND, dizziness/lightheadedness. No current complaints. BP moderately low at approximately 70-90/65-70 Objective: Patient Vitals for the past 24 hrs: BP Temp Temp src Pulse Resp SpO2 Weight 04/24/25 0804 82/72 36 ??C (96.8 ??F) Temporal 103 19 93 % -- 04/24/25 0403 -- -- -- -- -- -- 81.9 kg (180 lb 9.6 oz) 04/24/25 0329 95/77 36.7 ??C (98.1 ??F) Temporal 105 22 98 % -- 04/24/25 0004 97/69 36.7 ??C (98.1 ??F) Temporal 105 21 95 % -- 04/23/25 1954 98/73 36.8 ??C (98.2 ??F) Temporal (!) 112 -- 96 % -- 04/23/25 1620 100/73 36.7 ??C (98.1 ??F) Temporal 108 14 93 % -- 04/23/25 1410 95/75 36.7 ??C (98.1 ??F) Temporal 105 14 95 % -- 04/23/25 1235 95/74 36.5 ??C (97.7 ??F) Temporal 106 18 93 % -- 04/23/25 1110 92/75 -- -- 106 -- 92 % -- 04/23/25 1037 86/75 -- -- (!) 113 -- 94 % -- 04/23/25 0910 97/81 36.3 ??C (97.3 ??F) Temporal (!) 116 18 98 % -- Physical Examination: Physical Exam Constitutional: General: He is not in acute distress. Appearance: Normal appearance. He is not ill-appearing, toxic-appearing or diaphoretic. HENT: Head: Normocephalic and atraumatic. Right Ear: External ear normal. Left Ear: External ear normal. Nose: Nose normal. Mouth/Throat: Mouth: Mucous membranes are moist. Pharynx: Oropharynx is clear. Eyes: General: No scleral icterus. Right eye: No discharge. Left eye: No discharge. Conjunctiva/sclera: Conjunctivae normal. Pupils: Pupils are equal, round, and reactive to light. Cardiovascular: Rate and Rhythm: Normal rate and regular rhythm. Pulses: Normal pulses. Heart sounds: Normal heart sounds. No murmur heard. Pulmonary: Effort: Pulmonary effort is normal. No respiratory distress. Breath sounds: Normal breath sounds. No stridor. No wheezing, rhonchi or rales. Chest: Chest wall: No tenderness. Abdominal: General: Abdomen is flat. Bowel sounds are normal. There is no distension. Palpations: Abdomen is soft. There is no mass. Tenderness: There is no abdominal tenderness. There is no guarding or rebound. Hernia: No hernia is present. Neurological: General: No focal deficit present. Mental Status: He is alert and oriented to person, place, and time. Mental status is at baseline. Cranial Nerves: No cranial nerve deficit. Sensory: No sensory deficit. Gait: Gait normal. Deep Tendon Reflexes: Reflexes normal. Psychiatric: Mood and Affect: Mood normal. Behavior: Behavior normal. Thought Content: Thought content normal. Judgment: Judgment normal. Relevant Lab Results Encounter Date: 04/19/25 ECG 12 lead Result Value Ventricular Rate 120 Atrial Rate 120 ME Interval 198 QRS DURATION 102 QT Interval 294 QTC CALCULATION(BAZETT) 415 P Welch 64 R-Welch 38 T Wave Welch 116 Impression Sinus tachycardia Low voltage QRS Septal infarct , age undetermined Abnormal ECG When compared with ECG of 19-APR-2025 18:24, Premature ventricular complexes are no longer Present Confirmed by Jeffy VERNON, MITESH Pruett ([id number]) on 04/23/2025 8:14:48 AM Lab Results Component Value Date TROPONINI 0.04 07/02/2022 Limited Echo (TTE) w/wo Limited Doppler, Color Flow, Imaging Agent, Strain, 3D, Bubble Study Result Date: 04/23/2025 1 1 [facility] Heart Station [address] [place] [address] [phone] (fax) Echocardiogram-[facility] Name: KRISTY DOHERTY Study Date: 04/23/2025 07:26 AM B/P: 90 mmHg/74 mmHg HR: 111 bpm Date of : 1955 Location: [facility] Height: 68 in. Age: 69 year(s) Patient Room: 3183 Weight: 177 lb. Gender: Male Patient Status: InPt BSA: 1.94 m2 Indication: Limited; pericardial effusion, S/P 35 mm Watchman device FLX, S/P Pericardiocentesis, H/O 25-30%, Pacemaker/AICD Examination: Limited Echo/Limited Doppler, Color flow imaging Image Quality: Good Patient Consent: Procedure explained to patient Conclusions Left Ventricle: Global left ventricular systolic function is severely reduced. The EF is 20 % visually. Regional wall motion abnormalities (see diagram). Right Ventricle: Severely reduced right ventricular systolic function. A pacemaker wire is seen in the right ventricle. Doppler studies suggest moderately elevated right sided pressures (elevated pulmonary pressure). Mitral Valve: Mild to moderate mitral regurgitation. Aortic Valve: Mild aortic valve regurgitation. Tricuspid Valve: Moderate tricuspid regurgitation. Overall Conclusions: Decrease in right ventricular systolic function and increase in tricuspid insufficiency when compared to previous study. Measurements Left Ventricle Label Value Normal Value LVEF visual 20 % Tricuspid Valve Label Value Normal Value RA Pressure 8 mmHg RVSP 49 mmHg TR Vmax 3.22 m/s Great Vessels Label Value Normal Value IVC 2 cm (1.2cm - 2.3cm) Valvular Assessment LVOT 0.7 - 1.1 m/sec Aortic Valve 1.0 - 1.7 m/sec Mitral Valve 0.6 - 1.3 m/sec Tricuspid Valve 0.3 - 0.7 m/sec Pulmonic Valve 0.6 - 0.9 m/sec Regurgitation Mild MildMod Moderate Findings Left Ventricle: Global left ventricular systolic function is severely reduced. The EF is 20 % visually. Regional wall motion abnormalities (see diagram). The basal anterior, basal anteroseptal, basal inferoseptal, basal inferior, basal inferolateral, basal anterolateral, mid inferoseptal, mid inferior and mid inferolateral left ventricular wall segments are hypokinetic. The mid anterior, mid anteroseptal, mid anterolateral, apical anterior, apical septal, apical inferior, apical lateral and apex left ventricular wall segments are akinetic. Right Ventricle: The right ventricular free wall is akinetic in the distaltwo- thirds. Severely reduced right ventricular systolic function. A pacemaker wire is seen in the right ventricle. Doppler studies suggest moderately elevated right sided pressures (elevated pulmonary pressure). Mitral Valve: The mitral valve is normal in mobility and thickness. Mild to moderate mitral regurgitation. Aortic Valve: The aortic valve opens well. Mildly sclerosed aortic valve cusps. Mild aortic valve regurgitation. Tricuspid Valve: Normal tricuspid valve. Moderate tricuspid regurgitation. Pulmonic Valve: Pulmonary valve not visualized. Great Vessels: IVC: The IVC is normal in size. There is no inspiratory collapse of the IVC. Pericardium: There is a minimal pericardial effusion. Procedure Staff Reading Group: [facility] Referring Physician: RUDY KING Property Consultant: June Brumfield RDCS, RVT, RN, BSN Ordering Physician: FANI DENNEY Wall Motion Scores -1 - hyperkinesia, 0 - not evaluated, 1 - normal, 2 - hypokinesia, 3 - akinesia, 4 - dyskinesia Transthoracic echo (TTE) limited Result Date: 04/20/2025 1 1 [facility] Heart Station [address] [place] [address] [phone] (fax) Echocardiogram-[facility] Name: KRISTY DOHERTY Study Date: 04/20/2025 01:28 PM B/P: 83 mmHg/58 mmHg HR: 96 bpm Date of : 1955 Location: [facility] Height: 68 in. Age: 69 year(s) Patient Room: 3183 Weight: 179 lb. Gender: Male Patient Status: InPt BSA: 1.95 m2 Indication: Limited; evaluate pericardial effusion, S/P 35 mm Watchman FLX, H/O EF 25 - 30 %, Pacemaker, Cardiomyopathy Examination: Limited Echo/Limited Doppler, Color flow imaging Image Quality: Good Patient Consent: Procedure explained to patient Conclusions Left Ventricle: Global left ventricular systolic function is severely reduced. The EF is 30 % visually. The septum is abnormal in its motion. Right Ventricle: Right ventricular systolic function appears normal. A pacemaker wire is seen in the right ventricle. Doppler studies suggest normal right sided pressures. Pericardium: No pericardial effusion. Measurements Left Ventricle Label Value Normal Value LVEF visual 30 %Tricuspid Valve Label Value Normal Value RA Pressure 3 mmHg RVSP 24 mmHg TR Vmax 2.29 m/s Great Vessels Label Value Normal Value IVC 1.1 cm (1.2cm - 2.3cm) Valvular Assessment LVOT 0.7 - 1.1 m/sec Aortic Valve 1.0 - 1.7 m/sec Mitral Valve 0.6 - 1.3 m/sec Tricuspid Valve 0.3 - 0.7 m/sec Pulmonic Valve 0.6 - 0.9 m/sec Regurgitation Trivial Trivial Trivial Findings Left Ventricle: Global left ventricular systolic function is severely reduced. The EF is 30 % visually. The septum is abnormal in its motion. All scored left ventricular wall segments are hypokinetic. Right Ventricle: Right ventricular systolic function appears normal. A pacemaker wire is seen in the right ventricle. Doppler studies suggest normal right sided pressures. Mitral Valve: The mitral valve is normal in mobility and thickness. Trivial mitral regurgitation. Aortic Valve: Mildly sclerosed aortic valve cusps. Trivial aortic valve regurgitation. Tricuspid Valve: Normal tricuspid valve. Trivial tricuspid regurgitation. Great Vessels: IVC: The IVC is normal in size. There is inspiratory collapse of the IVC. Pericardium: No pericardial effusion. Procedure Staff Reading Group: [facility] Referring Physician:RUDY KING Property Consultant: June Brumfield RDCS, RVT, RN, BSN Ordering Physician: VENU SAMANIEGO Wall Motion Scores -1 - hyperkinesia, 0 - not evaluated, 1 - normal, 2 - hypokinesia, 3 - akinesia, 4 - dyskinesia Transthoracic echo (TTE) limited Result Date: 04/19/2025 1 1 [facility] Heart Station [address] [facility] [address] [phone] (fax) Echocardiogram-[facility] Name: KRISTY DOHERTY Study Date: 04/19/2025 02:13 PM B/P: / HR: Date of : 1955 Location: [facility] Height: 68 in. Age: 69 year(s) Patient Room: 3183 Weight: 182 lb. Gender: Male Patient Status: InPt BSA: 1.96 m2 Indication: pericardialeffusion, h/o 35mm Watchman FLX Examination: Limited Echo Image Quality: Fair Findings Pericardium: Moderate pericardial effusion baseline. Post pericardiocentesis there is minimal pericardial effusion. Procedure Staff Reading Group: [facility] Referring Physician: RUDY KING Property Consultant: SAMI Starr, RDCS Ordering Physician: VENU SAMANIEGO Complete Echo (TTE) w/wo Imaging Agent, Strain, 3D, Bubble Study Result Date: 04/19/2025 1 1 [facility] Heart Station [address] [place] [address] [phone] (fax) Echocardiogram-[facility] Name: KRISTY DOHERTY Study Date: 04/19/2025 12:46 PM B/P: 97 mmHg/71 mmHg HR: Date of : 1955 Location: [facility] Height: 68 in. Age: 69 year(s) Patient Room: 3183 Weight: 182 lb. Gender: Male Patient Status: InPt BSA: 1.96 m2 Indication: Chest Pain, s/p 35mm Watchman FLX Examination: Echocardiogram (Complete) ImageQuality: Fair Patient Consent: Procedure explained to patient Conclusions Left Ventricle: The left ventricle is normal size. Global left ventricular systolic function is normal. The EF is 60 % visually. Left ventricular wall thickness is normal. No regional wall motion abnormality. Right Ventricle:The right ventricle appears normal in size. Right ventricular systolic function appears normal. Doppler studies suggest normal right sided pressures. Left Atrium: Watchman device visualized . The left atrium appears normal in size. Aortic Valve: Mild aortic valve regurgitation. Tricuspid Valve: Mild tricuspid regurgitation. Pericardium: There is a moderate circumfrential pericardial effusion. There is also, significant mitral inflow variations consistent with early tamponade physiology. Measurements Left Ventricle Label Value Normal Value LVOT VTI 11.1 cm (18cm - 22cm) LVOT PGmax 3 mmHg LVEF visual 60 % LVOT PGmean 1 mmHg Right Ventricle Label Value Normal Value TAPSE 0.97 cm Aortic Valve Label Value Normal Value AV DVI 0.5 AV VTI 23.1 cm Mitral Valve Label Value Normal Value MV E Vmax 0.54 m/s MV A Vmax 0.79 m/s MV E/A 0.68 MV E/E' lateral 7.6 MV E' lateral 0.07 m/s Tricuspid Valve Label Value Normal Value RA Pressure 3 mmHg RVSP 30 mmHg TR Vmax 2.59 m/s Valvular Assessment LVOT 0.7 - 1.1 m/sec Aortic Valve 1.0 - 1.7 m/sec Mitral Valve 0.6 - 1.3 m/sec Tricuspid Valve 0.3 - 0.7 m/sec Pulmonic Valve 0.6 - 0.9 m/sec Regurgitation Mild No Mild No Max Velocity 0.81 m/sec 1.62 m/s 0.54m/sec 1.02 m/s Max Gradient 10.00 mmHg 4.00 mmHg Mean Gradient 5.00 mmHg Findings Left Ventricle: The left ventricle is normal size. Global left ventricular systolic function is normal. The EF is 60 % visually. Left ventricular wall thickness is normal. No regional wall motion abnormality. Right Ventricle: The right ventricle appears normal in size. Right ventricular systolic function appears normal. Doppler studies suggest normal right sided pressures. Left Atrium: Watchman device visualized .The left atrium appears normal in size. Right Atrium: The right atrium appears normal in size. Mitral Valve: The mitral valve is normal in mobility and thickness. No mitral regurgitation. Aortic Valve: Focal aortic cusp thickening is noted. Mild aortic valve regurgitation. Tricuspid Valve: Normal tricuspid valve. Mild tricuspid regurgitation. Pulmonic Valve: Normal pulmonary valve. No pulmonary regurgitation. Aorta: The aortic root exhibits normal size. Great Vessels: IVC: Normal size and course of the IVC. Pericardium: There is a moderate circumfrential pericardial effusion. There is also, significant mitral inflow variations consistent with early tamponade physiology. Procedure Staff Reading Group: [facility] Property Consultant: Bryanna Cazares RDCS Ordering Physician: HAKAN Canchola signed by MD Mitesh Vernon on 04/19/2025 at 01:44 PM Limited Transthoracic Echo (TTE) w/wo Contrast, Color Flow, Imaging Agent, Strain, 3D, Bubble Study Result Date: 02/07/2025 1 1 [facility] Heart Station [address] [facility] [address] [phone] (fax) Echocardiogram-[facility] Name: KRISTY DOHERTY Study Date: 02/07/2025 08:02 AM B/P: 118 mmHg/85 mmHg HR: 63 bpm Date of : 1955 Location: [facility] Height: 68 in. Age: 69 year(s) Patient Room: 9956 Weight: 186 lb. Gender: Male Patient Status: InPt BSA: 1.98 m2 Indication: Atrial Fibrillation, Pacemaker, s/p 35mm Watchman FLX Examination: Limited Echo, Color flow imaging, Lumason Contrast Image Quality: Fair Patient Consent: Procedure explained to patient Exam Details Contrast: I.V. dose of Lumason Conclusions Left Ventricle: The left ventricle is [...] Aortic Valve: Mild aortic valve regurgitation. Overall C onclusions: Due to suboptimal imaging Lumason contrast was administered for opacification and better delineation of endocardial borders. Well seated 35mm Watchman FLX PRO. Measurements Left VentricleLabel Value Normal Value LVDd, 2D 5.86 cm (4.2cm - 5.9cm) LVDs, 2D 5.21 cm (2.1cm - 4cm) IVSd, 2D 0.91 cm (0.6cm - 1.1cm) LVPWd, 2D 1.06 cm (0.6cm - 1cm) LV Mass, 2D ASE 232.58 g LV Mass Index, 2D ASE 117.5 g/m?? (50g/m?? - 102.4g/m??) RWT, MM 0.36 (0 - 0.42) LVSVI, 2D 20.7 ml/m2 Aorta Label Value Normal Value AoRoot, 2D 3.4 cm (1.4cm - 3.8cm) Valvular Assessment LVOT 0.7 - 1.1 m/sec Aortic Valve1.0 - 1.7 m/sec Mitral Valve 0.6 - 1.3 m/sec Tricuspid Valve 0.3 - 0.7 m/sec Pulmonic Valve 0.6 - 0.9 m/sec Regurgitation Mild trivMil Findings Left Ventricle: The left ventricle is normal size. Global left ventricular systolic function is severely reduced. EF range is estimated at 25 % -30 %. Leftventricular wall thickness is increased. Diffuse global hypokinesis. Right Ventricle: The right ventricle is normal in size. Normal right ventricular systolic function. A pacemaker wire is seen in the right atrium and right ventricle. Left Atrium: The left atrium is normal in size. Right Atrium: The right atrium is normal in size. Mitral Valve: There is nonspecific thickening of the mitral valve leaflet. Trvial to mild mitral regurgitation. Aortic Valve: Focal aortic cusp thickening is noted. Mild aortic valve regurgitation. Tricuspid Valve: Normal tricuspid valve. Pulmonic Valve: Normal pulmonary valve. Aorta: The aortic root exhibits normal size. Great Vessels: IVC: The IVC is normal in size. Pericardium: No pericardial effusion. Procedure Staff Reading Group: [facility] Referring Physician: RUDY KING Property Consultant: SAMI Starr, RDCS Ordering Physician: CHUCK FUNEZ Transesophageal echo (MASON) Result Date: 12/01/2024 1 [facility] Heart Station [address] [place] [address] [phone] (fax) Transesophageal Echocardiogram-[facility] Name: KRISTY DOHERTY Study Date: 12/01/2024 12:00 PM B/P: 134 mmHg/87 mmHg HR: 80 bpm Date of : 1955 Location: [facility] Height: 68 in. Age: 69 year(s) Patient Room: Weight: 194 lb. Gender: Male PatientStatus: OutPt BSA: 2.02 m2 Indication: Atrial Fibrillation, Pre-Watchman Examination: MASON, Color flow imaging Image Quality: Excellent Patient Consent: Informed, written consent was obtained for the procedure Exam Location: A MASON was performed in the [facility] without complications Anesthesia Pharyngeal anesthesia with viscous Lidocaine Conclusions Left Ventricle: The left ventricle is normal size. Global left ventricular systolic function is severely reduced. EF range is estimated at 25 % -30 %. Left ventricular wall thickness is normal. Diffuse global hypokinesis. Right Ventricle: The right ventricle appears normal in size. Normal right ventricular systolic function. Left Atrium: The left a trium is severely enlarged. Left Atrium Appendage: The left atrial appendage is monolobular. Normalleft atrial appendage, no thrombus seen. ROBB measutments [...] 50 micrograms Valvular Assessment LVOT 0.7 - 1.1m/sec Aortic Valve 1.0 - 1.7 m/sec Mitral Valve 0.6 - 1.3 m/sec Tricuspid Valve 0.3 - 0.7 m/sec Pulm onic Valve 0.6 - 0.9 m/sec Regurgitation Mod [...] atrium is severely enlarged. Left Atrium Appendage: Theleft atrial appendage is normal. The left atrial [...] is a minimal pericardial effusion. The Attending Ph ysician was present and personally reviewed the examination with the fellow Procedure Staff ReadingGroup: [facility] Referring Physician: RUDY KING Property Consultant: Samaria Oden [facility] Ordering Physician: Hay William MD No nuclear medicine results found for the past 12 months Relevant Imaging Results CTA Chest W IV Contrast Narrative: CTA CHEST W IV CONTRAST INDICATION: Shortness of breath COMPARISON: CTA chest 03/26/2025 TECHNIQUE: Contiguous axial images are obtained of the Chest with IV contrast. Coronal and sagittal reconstructions were performed and reviewed. Sagittal and coronal reformatted images with 3-D Maximum intensity projection reconstructions constructed under concurrent physician supervision on a separate workstation. Automatic exposure control was utilized. All CT scans at this facility use dose modulation, iterative reconstruction, and/or weight based dosing when appropriate to reduce radiation dose to as low as reasonably achievable. FINDINGS: Lines/Tubes: * Right-sided cardiac pacemaker with leads terminating near the right atrium and right ventricle. * Atrial appendage closure device in place. Lower Neck: No thyromegaly. Cardiovascular: Mildly ectatic ascending thoracic aorta measuring 4.0 cm. Mild global cardiomegaly. No pericardial effusion. Heavy coronary artery calcifications. Reflux of contrast into the suprahepatic IVC. Pulmonary Arteries: Enlarged main pulmonary artery measuring 4.2 cm. No filling defects of the main pulmonary arteries, segmental branches, or major subsegmental branches to suggest emboli. Mediastinum: No mediastinal mass. Lymph Nodes: No thoracic lymphadenopathy. Chest Wall: Bilateral gynecomastia. Respiratory: Widely patent central airway. No pneumothorax. Small bilateral pleural effusions. No focal consolidation. No suspicious pulmonary nodules. Skeletal: No worrisome osseous lesion. Upper Abdomen: Simple right renal cyst, no further dedicated follow-up necessary. Impression: * No central pulmonary embolus. * Small bilateral pleural effusions. * Enlarged main pulmonary artery suggestive of pulmonary arterial hypertension. Reflux of contrast into the suprahepatic IVC suggestive of right heart dysfunction. Approved by:Benedict Katz04/23/2025 5:40 PM. I, Howie Velasquez,have reviewed the image(s) and agree with the findings in this report. Electronically signed: Howie Velasquez. Limited Echo (TTE) w/wo Limited Doppler, Color Flow, Imaging Agent, Strain, 3D, Bubble Study 1 1 [facility] Heart Station [address] [place] [address] [phone] (fax) Echocardiogram-[facility] Name: KRISTY DOHERTY Study Date: 04/23/2025 07:26 AM B/P: 90 mmHg/74 mmHg HR: 111 bpm Date of : 1955 Location: [facility] Height: 68 in. Age: 69 year(s) Patient Room: 3183 Weight: 177 lb. Gender: Male Patient Status: InPt BSA: 1.94 m2 Indication: Limited; pericardial effusion, S/P 35 mm Watchman device FLX, S/P Pericardiocentesis, H/O 25-30%, Pacemaker/AICD Examination: Limited Echo/Limited Doppler, Color flow imaging Image Quality: Good Patient Consent: Procedure explained to patient Conclusions Left Ventricle: Global left ventricular systolic function is severely reduced. The EF is 20 % visually. Regional wall motion abnormalities (see diagram). Right Ventricle: Severely reduced right ventricular systolic function. A pacemaker wire is seen in the right ventricle. Doppler studies suggest moderately elevated right sided pressures (elevated pulmonary pressure). Mitral Valve: Mild to moderate mitral regurgitation. Aortic Valve: Mild aortic valve regurgitation. Tricuspid Valve: Moderate tricuspid regurgitation. Overall Conclusions: Decrease in right ventricular systolic function and increase in tricuspid insufficiency when compared to previous study. Measurements Left Ventricle Label Value Normal Value LVEF visual 20 % Tricuspid Valve Label Value Normal Value RA Pressure 8 mmHg RVSP 49 mmHg TR Vmax 3.22 m/s Great Vessels Label Value Normal Value IVC 2 cm (1.2cm - 2.3cm) Valvular Assessment LVOT 0.7 - 1.1 m/sec Aortic Valve 1.0 - 1.7 m/sec Mitral Valve 0.6 - 1.3 m/sec Tricuspid Valve 0.3 - 0.7 m/sec Pulmonic Valve 0.6 - 0.9 m/sec Regurgitation Mild MildMod Moderate Findings Left Ventricle: Global left ventricular systolic function is severely reduced. The EF is 20 % visually. Regional wall motion abnormalities (see diagram). The basal anterior, basal anteroseptal, basal inferoseptal, basal inferior, basal inferolateral, basal anterolateral, mid inferoseptal, mid inferior and mid inferolateral left ventricular wall segments are hypokinetic. The mid anterior, mid anteroseptal, mid anterolateral, apical anterior, apical septal, apical inferior, apical lateral and apex left ventricular wall segments are akinetic. Right Ventricle: The right ventricular free wall is akinetic in the distal two-thirds. Severely reduced right ventricular systolic function. A pacemaker wire is seen in the right ventricle. Doppler studies suggest moderately elevated right sided pressures (elevated pulmonary pressure). Mitral Valve: The mitral valve is normal in mobility and thickness. Mild to moderate mitral regurgitation. Aortic Valve: The aortic valve opens well. Mildly sclerosed aortic valve cusps. Mild aortic valve regurgitation. Tricuspid Valve: Normal tricuspid valve. Moderate tricuspid regurgitation. Pulmonic Valve: Pulmonary valve not visualized. Great Vessels: IVC: The IVC is normal in size. There is no inspiratory collapse of the IVC. Pericardium: There is a minimal pericardial effusion. Procedure Staff Reading Group: [facility] Referring Physician: RUDY KING Property Consultant: June Brumfield RDCS, RVT, RN, BSN Ordering Physician: FANI DENNEY Wall Motion Scores -1 - hyperkinesia, 0 - not evaluated, 1 - normal, 2 - hypokinesia, 3 - akinesia, 4 - dyskinesia Cardiac catheterization PROCEDURE PHYSICIAN: Venu Samaniego MD Clinical Presentation: 69 y.o. Male with chest pain and a new pericardial effusion with concern of cardiac tamponade Final Impression: 1) Right and left heart catheterization did not demonstrate equalization of diastolic pressures, however, there was significant aortic pressure variation with inspiration (25 mmHg) and elevated R atrial, RVEDP and LV EDP 2) Pericardiocentesis, which removed 300 ml serosanguinous fluid, demonstrated equalization of R atrial and pericardial pressures, however RVEDP was greater than pericardial pressure Procedures Performed: right and left heart catheterization, ultrasound guidance for vascular access, pericardiocentesis Procedure Description: The patient was brought to the cardiac catheterization lab in a fasting state. Informed written consent was obtained. javier-out was performed. he was prepped and draped in usual sterile fashion and 1% lidocaine was infiltrated. Using ultrasound guidance and a micropuncture access technique a 6 Hungarian sheath was placed in the right femoral vein a 4 Fr sheath was placed in the RFA. The Carrasquillo catheter was advanced under fluoroscopic and hemodynamic monitoring to the right atrium. Pressure obtained of the right atrium, right ventricle, pulmonary artery, pulmonary capillary position. Oxygen saturation drawn for the pulmonary artery and [place] cardiac with a cardiac index were calculated. A 4 Fr pigtail was placed in the LV and simultaneous pressures obtained. After reviewing the pressure data it was determined to perform therapeutic pericardiocentesis. Anesthesia was obtained over the L subxiphoid region. Using ultrasound and fluoroscopic guidance the pericardium was entered with a micropuncture wire and a 6 Fr pericardial drain placed. Pressures were repeated. All catheters and wires were removed. The sheath was removed and pressure was applied to obtain hemostasis. Specimens Removed: None Complications: None Hemodynamic Data, baseline: RA: 12 mmHg Pericardi RV: 38/16 mmHg PA: 37/19/26 mmHg PCWP: mmHg LV: 90/15 mmHg CO: 6.04 L/min CI: 3.07 L/min/m2 O2 Sat: PA sat: 67% AO sat: 90% Hemodynamic Data, Pericardium: RA: 12 mmHg Pericardium: 12 mmHg Hemodynamic Data, Post-pericardiocentesis: RA: 8 mmHg Pericardium: 3 mmHg ECG 12 lead Sinus tachycardia Low voltage QRS Septal infarct , age undetermined Abnormal ECG When compared with ECG of 19-APR-2025 18:24, Premature ventricular complexes are no longer Present Confirmed by Jeffy VERNON, MITESH Pruett ([id number]) on 04/23/2025 8:14:[address] cervical spine wo IV contrast Narrative: CT CERVICAL SPINE WO IV CONTRAST HISTORY: Fall, neck pain COMPARISON: None. TECHNIQUE: Multi detector CT slices of the cervical spine were obtained without IV contrast. All CT scans at this facility use dose modulation, iterative reconstruction, and/or weight based dosing when appropriate to reduce radiation dose to as low as reasonably achievable. FINDINGS: The cervical alignment is maintained without spondylolisthesis. The vertebral body heights are preserved. Multilevel degenerative disc disease with disc space narrowing most prominently at C6-C7. Multilevel facet degenerative changes which contribute to at least moderate bony neural foraminal stenosis at C3-C4 on the right. No acute fracture is identified. The craniocervical junction and atlantoaxial joint are intact. No destructive osseous lesion. The prevertebral soft tissues are within normal limits. The paraspinous soft tissues are within normal limits. Strandy left apical airspace opacity. Impression: No evidence of acute fracture or traumatic malalignment. Approved by:Phill Morgann04/23/2025 4:14 AM. I, Ayden Corbin MD,have reviewed the image(s) and agree with the findings in this report. Electronically signed: Ayden Corbin MD. CT head wo IV contrast Narrative: CT HEAD WO IV CONTRAST HISTORY: Fall, head trauma, nausea. COMPARISON: None. TECHNIQUE: CT brain without intravenous contrast. Automated exposure control was utilized. All CT scans at this facility use dose modulation, iterative reconstruction, and/or weight based dosing when appropriate to reduce radiation dose to as low as reasonably achievable. FINDINGS: No acute, territorial region of diminished acosta-white differentiation. No evidence of acute intracranial hemorrhage. No mass effect, shift of midline structures, or extra-axial fluid collection. Mild global parenchymal volume loss. Mild heterogeneity of the deep, periventricular white matter most commonly seen in the setting of chronic microvascular ischemic changes. Disconjugate gaze. Polypoid mucosal thickening within the left maxillary sinus. Bilateral maxillary antrostomies. No displaced calvarial fracture. Degenerative changes of the left temporomandibular joint joint. Impression: * No acute intracranial abnormality, by CT. * Chronic and senescent changes as described. Approved by:Phill Orellana 4:07 AM. I, Ayden Corbin MD,have reviewed the image(s) and agree with the findings in this report. Electronically signed: Ayden Corbin MD. Assessment: Moderate circumferential pericardial effusion s/p RHC, LHC and pericardiocentesis (300cc removal) with drain placement on 04/19/25 - unclear etiology, cannot rule out acute pericarditis Pericardial drain removed 04/20 after resolution of effusion on 04/20 echo Repeat echo limited 04/23/2025 with EF 20%, severely reduced RV systolic function, and no inspiratory collapse of IVC (new findings), and minimal pericardial effusion Chronic heart failure with reduced ejection fraction, NYHA II, (s/p ICD placement in 2022) does notappear to be in acute exacerbation. 04/23/2025 echo with EF 20%, severely reduced RV systolic function, mild-moderate MR, mild AV regurg, mild TR, elevated RVSP 49 Frequent PVC's on telemetry Paroxysmal A-fib [id number] (heart failure, hypertension, age 65-74) s/p Watchman procedure on 02/06/2025 (due to prior bleeding with eliquis) Nonobstructive coronary artery disease Hyperlipidemia (unspecified) on lipitor 40 Plan: Right heart cath ordered for further evaluation given persistent hypotension, tachycardia along with 04/23 TTE findings of worsening TR with RVSP of 49 and noncollapsible IVC. Continue colchicine 0.6 mg twice daily Continue GDMT (currently limited by hypotension) - now on Farxiga 10 mg daily, Toprol-XL 12.5 mg daily Will need event monitor on discharge given frequent PVC's on telemetry Continue to monitor electrolytes. Maintain potassium more than 4 magnesium more than 2. Cardiology will continue to follow. Please call with any questions. Felicita Mooney MD PGY-2 Internal Medicine Resident [facility] Cosigned by Bebo Dominguez MD at 04/25/2025 5:47 PM EDT Associated attestation - Bebo Dominguez MD - 04/25/2025 5:47 PM EDT By using the attestations below, the signing clinician agrees that I have read and verify that thedocumentation has been personally reviewed by me and ensure that the documentation accurately reflects the encounter. GC: I personally saw this patient on the day of the encounter, performed the gonzáles portion(s) of the service and participated in the management and confirm the resident's documentation. Please note there may be an additional personal documentation from me. Additional Comments: agree we are treating for pericarditis with colchicine We are treating for acute on chronic HFrEF We are treating for paroxysmal A-fib Patient has worsening HFrEF which we believe is related due to underlying atrial fibrillation He had a right heart catheterization which showed cardiogenic shock We then transferred to MICU and started milrinone See subsequent note for details * Benedict Pascual MD - 04/23/2025 3:18 PM EDT Images from the original note were not included. Hospital Medicine Daily Progress Note - 04/23/2025 3:18 PM; Room: 3183/3183-01 Admission: 04/19/2025 10:46 AM; Length of stay: 4 days THE HOSPITALIST TEAM PREFERS TO USE [employer] CHAT FOR NON-URGENT COMMUNICATION 7AM- 7PM. IF I DO NOT RESPOND WITHIN 20 MINUTES OR URGENT MATTERS, PLEASE CALL THROUGH THE CLINICAL LAB SPECIALIST. FROM 7PM-7AM, PLEASE PAGE [phone](COVR). Code Status: Full Code Barriers to Discharge: Hypotensive and tachycardic. Cath tomorrow Expected Discharge Date: Discharge Destination: home Overview Patient is seen for evaluation and management of pericardial effusion, concern for tamponade, hypotension. Subjective Patient had a fall yesterday and CT showed no acute events. Patient is tachycardia and hypotensive.Denies dizziness, CP, SOB, N/V. Physical Exam Visit Vitals BP 95/75 Pulse 105 Temp 36.5 ??C (97.7 ??F) (Temporal) Resp 18 Intake/Output Summary (Last 24 hours) at 04/23/2025 1518 Last data filed at 04/23/2025 1147 Gross per 24 hour Intake 100 ml Output -- Net 100 ml Physical Exam Cardiovascular: Rate and Rhythm: Regular rhythm. Tachycardia present. Pulmonary: Effort: Pulmonary effort is normal. Breath sounds: Normal breath sounds. Abdominal: General: Abdomen is flat. Palpations: Abdomen is soft. Neurological: General: No focal deficit present. Mental Status: He is alert and oriented to person, place, and time. Estimated body mass index is 26.94 kg/m?? as calculated from the following: Height as of this encounter: 1.727 m (5' 8 ). Weight as of this encounter: 80.4 kg (177 lb 3.2 oz). Assessment and Plan Assessment & Plan Right ventricular dysfunction - We will order CTA chest due to tachycardia. - Left and right cath tomorrow. Chest pain Pericardial effusion - Echo showed early tamponade. Patient was taken to lab instructor for Pericardiocentesis. Right heart cath was not suggestive for tamponade. 300 ml serosanguinous fluid. - Monitor BP. - Continue colchicine per Cardiology. - Repeated echo showed mild effusion. Cardiomyopathy (CMS/HCC) Heart failure with reduced ejection fraction (CMS/HCC) ICD (implantable cardioverter-defibrillator) in place - Nonischemic cardiomyopathy. - Echo this admission showed EF 20%. - Continue Toprol and Farxiga. - Hold Entresto and spironolactone due to hypotension. Atrial fibrillation (CMS/HCC) - Status post Watchman. - Continue aspirin and Plavix. Uncomplicated asthma - Albuterol and switched from his Advair to our equivalent. Primary hypertension Hypotension due to hypovolemia Sinus tachycardia - Continue Toprol. - Hold Entresto and spironolactone due to hypotension. 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 - Continue aspirin, Plavix, Lipitor. Nutrition Screen: Malnutrition Attestation: No dietitian assessment is available at this time. VTE Prophylaxis: Lovenox Scheduled Meds allopurinol, 300 mg, oral, Daily aspirin, 81 mg, oral, Daily with breakfast atorvastatin, 40 mg, oral, Nightly clopidogrel, 75 mg, oral, Daily colchicine, 0.6 mg, oral, BID dapagliflozin propanediol, 10 mg, oral, Once Daily enoxaparin, 40 mg, subcutaneous, Daily metoprolol succinate XL, 12.5 mg, oral, Daily mometasone-formoterol, 2 puff, inhalation, BID sodium chloride, 500 mL, intravenous, Once [Held by provider] spironolactone, 25 mg, oral, Daily Pertinent Investigations Hematology: Results from last 7 days Lab Units 04/23/25 0502 04/20/2551404/19/25 1444 CRP mg/L 39.4* -- 145.7* WBC AUTO 10*3/uL 5.60 7.50 -- HEMOGLOBIN g/dL 11.9* 12.1* -- HEMATOCRIT % 35.0* 34.0* -- MCV fL 93.8 90.7 -- PLATELETS AUTO 10*3/uL 223 160 -- Chemistry: Results from last 7 days Lab Units 04/23/25 0502 04/20/25 0515 04/19/25 1214 SODIUM mmol/L 134* 127* 126* POTASSIUM mmol/L 4.1 3.9 5.0 CHLORIDE mmol/L 99 93* 91* CO2 mmol/L 26 26 28 BUN mg/dL 18 16 17 CREATININE mg/dL 1.11 0.94 0.98 GLUCOSE mg/dL 125* 127* 109* MAGNESIUM mg/dL 1.6* -- -- CALCIUM mg/dL 8.4* 8.8 9.5 Results from last 7 days Lab Units 04/23/25 0502 04/19/25 1214 AST U/L 34 22 ALT U/L 18 27 ALK PHOS U/L 48 51 BILIRUBIN TOTAL mg/dL 0.5 0.7 Historical Values: (Includes values prior to this admission) Lab Results Component Value Date CORTISOL 11.2 04/20/2025 No results found for: [id number] , IRON , TIBC , C3 , C4 , COLLIN , CANCA , ASO , PSA , CEA , CA125 , CA199 , AFP , CA153 Imaging Limited Echo (TTE) w/wo Limited Doppler, Color Flow, Imaging Agent, Strain, 3D, Bubble Study 1 1 [facility] Heart Station [address] [place] [address] [phone] (fax) Echocardiogram-[facility] Name: KRISTY DOHERTY Study Date: 04/23/2025 07:26 AM B/P: 90 mmHg/74 mmHg HR: 111 bpm Date of : 1955 Location: [facility] Height: 68 in. Age: 69 year(s) Patient Room: 3183 Weight: 177 lb. Gender: Male Patient Status: InPt BSA: 1.94 m2 Indication: Limited; pericardial effusion, S/P 35 mm Watchman device FLX, S/P Pericardiocentesis, H/O 25-30%, Pacemaker/AICD Examination: Limited Echo/Limited Doppler, Color flow imaging Image Quality: Good Patient Consent: Procedure explained to patient Conclusions Left Ventricle: Global left ventricular systolic function is severely reduced. The EF is 20 % visually. Regional wall motion abnormalities (see diagram). Right Ventricle: Severely reduced right ventricular systolic function. A pacemaker wire is seen in the right ventricle. Doppler studies suggest moderately elevated right sided pressures (elevated pulmonary pressure). Mitral Valve: Mild to moderate mitral regurgitation. Aortic Valve: Mild aortic valve regurgitation. Tricuspid Valve: Moderate tricuspid regurgitation. Overall Conclusions: Decrease in right ventricular systolic function and increase in tricuspid insufficiency when compared to previous study. Measurements Left Ventricle Label Value Normal Value LVEF visual 20 % Tricuspid Valve Label Value Normal Value RA Pressure 8 mmHg RVSP 49 mmHg TR Vmax 3.22 m/s Great Vessels Label Value Normal Value IVC 2 cm (1.2cm - 2.3cm) Valvular Assessment LVOT 0.7 - 1.1 m/sec Aortic Valve 1.0 - 1.7 m/sec Mitral Valve 0.6 - 1.3 m/sec Tricuspid Valve 0.3 - 0.7 m/sec Pulmonic Valve 0.6 - 0.9 m/sec Regurgitation Mild MildMod Moderate Findings Left Ventricle: Global left ventricular systolic function is severely reduced. The EF is 20 % visually. Regional wall motion abnormalities (see diagram). The basal anterior, basal anteroseptal, basal inferoseptal, basal inferior, basal inferolateral, basal anterolateral, mid inferoseptal, mid inferior and mid inferolateral left ventricular wall segments are hypokinetic. The mid anterior, mid anteroseptal, mid anterolateral, apical anterior, apical septal, apical inferior, apical lateral and apex left ventricular wall segments are akinetic. Right Ventricle: The right ventricular free wall is akinetic in the distal two-thirds. Severely reduced right ventricular systolic function. A pacemaker wire is seen in the right ventricle. Doppler studies suggest moderately elevated right sided pressures (elevated pulmonary pressure). Mitral Valve: The mitral valve is normal in mobility and thickness. Mild to moderate mitral regurgitation. Aortic Valve: The aortic valve opens well. Mildly sclerosed aortic valve cusps. Mild aortic valve regurgitation. Tricuspid Valve: Normal tricuspid valve. Moderate tricuspid regurgitation. Pulmonic Valve: Pulmonary valve not visualized. Great Vessels: IVC: The IVC is normal in size. There is no inspiratory collapse of the IVC. Pericardium: There is a minimal pericardial effusion. Procedure Staff Reading Group: [facility] Referring Physician: RUDY KING Property Consultant: June Brumfield RDCS, RVT, RN, BSN Ordering Physician: FANI DENNEY Wall Motion Scores -1 - hyperkinesia, 0 - not evaluated, 1 - normal, 2 - hypokinesia, 3 - akinesia, 4 - dyskinesia Cardiac catheterization PROCEDURE PHYSICIAN: Venu Samaniego MD Clinical Presentation: 69 y.o. Male with chest pain and a new pericardial effusion with concern of cardiac tamponade Final Impression: 1) Right and left heart catheterization did not demonstrate equalization of diastolic pressures, however, there was significant aortic pressure variation with inspiration (25 mmHg) and elevated R atrial, RVEDP and LV EDP 2) Pericardiocentesis, which removed 300 ml serosanguinous fluid, demonstrated equalization of R atrial and pericardial pressures, however RVEDP was greater than pericardial pressure Procedures Performed: right and left heart catheterization, ultrasound guidance for vascular access, pericardiocentesis Procedure Description: The patient was brought to the cardiac catheterization lab in a fasting state. Informed written consent was obtained. javier-out was performed. he was prepped and draped in usual sterile fashion and 1% lidocaine was infiltrated. Using ultrasound guidance and a micropuncture access technique a 6 Hungarian sheath was placed in the right femoral vein a 4 Fr sheath was placed in the RFA. The Carrasquillo catheter was advanced under fluoroscopic and hemodynamic monitoring to the right atrium. Pressure obtained of the right atrium, right ventricle, pulmonary artery, pulmonary capillary position. Oxygen saturation drawn for the pulmonary artery and [place] cardiac with a cardiac index were calculated. A 4 Fr pigtail was placed in the LV and simultaneous pressures obtained. After reviewing the pressure data it was determined to perform therapeutic pericardiocentesis. Anesthesia was obtained over the L subxiphoid region. Using ultrasound and fluoroscopic guidance the pericardium was entered with a micropuncture wire and a 6 Fr pericardial drain placed. Pressures were repeated. All catheters and wires were removed. The sheath was removed and pressure was applied to obtain hemostasis. Specimens Removed: None Complications: None Hemodynamic Data, baseline: RA: 15/12/12 mmHg Pericardi RV: 38/16 mmHg PA: 37/19/26 mmHg PCWP: mmHg LV: 90/15 mmHg CO: 6.04 L/min CI: 3.07 L/min/m2 O2 Sat: PA sat: 67% AO sat: 90% Hemodynamic Data, Pericardium: RA: 12 mmHg Pericardium: 12 mmHg Hemodynamic Data, Post-pericardiocentesis: RA: 8 mmHg Pericardium: 3 mmHg ECG 12 lead Sinus tachycardia Low voltage QRS Septal infarct , age undetermined Abnormal ECG When compared with ECG of 19-APR-2025 18:24, Premature ventricular complexes are no longer Present Confirmed by Jeffy VERNON, MITESH Pruett ([id number]) on 04/23/2025 8:14:[address] cervical spine wo IV contrast Narrative: CT CERVICAL SPINE WO IV CONTRAST HISTORY: Fall, neck pain COMPARISON: None. TECHNIQUE: Multi detector CT slices of the cervical spine were obtained without IV contrast. All CT scans at this facility use dose modulation, iterative reconstruction, and/or weight based dosing when appropriate to reduce radiation dose to as low as reasonably achievable. FINDINGS: The cervical alignment is maintained without spondylolisthesis. The vertebral body heights are preserved. Multilevel degenerative disc disease with disc space narrowing most prominently at C6-C7. Multilevel facet degenerative changes which contribute to at least moderate bony neural foraminal stenosis at C3-C4 on the right. No acute fracture is identified. The craniocervical junction and atlantoaxial joint are intact. No destructive osseous lesion. The prevertebral soft tissues are within normal limits. The paraspinous soft tissues are within normal limits. Strandy left apical airspace opacity. Impression: No evidence of acute fracture or traumatic malalignment. Approved by:Phill Orellana 4:14 AM. Ayden Ramirez MD,have reviewed the image(s) and agree with the findings in this report. Electronically signed: Ayden Corbin MD. CT head wo IV contrast Narrative: CT HEAD WO IV CONTRAST HISTORY: Fall, head trauma, nausea. COMPARISON: None. TECHNIQUE: CT brain without intravenous contrast. Automated exposure control was utilized. All CT scans at this facility use dose modulation, iterative reconstruction, and/or weight based dosing when appropriate to reduce radiation dose to as low as reasonably achievable. FINDINGS: No acute, territorial region of diminished acosta-white differentiation. No evidence of acute intracranial hemorrhage. No mass effect, shift of midline structures, or extra-axial fluid collection. Mild global parenchymal volume loss. Mild heterogeneity of the deep, periventricular white matter most commonly seen in the setting of chronic microvascular ischemic changes. Disconjugate gaze. Polypoid mucosal thickening within the left maxillary sinus. Bilateral maxillary antrostomies. No displaced calvarial fracture. Degenerative changes of the left temporomandibular joint joint. Impression: * No acute intracranial abnormality, by CT. * Chronic and senescent changes as described. Approved by:Phill Orellana 4:07 AM. Ayden Ramirez MD,have reviewed the image(s) and agree with the findings in this report. Electronically signed: Ayden Corbin MD. Discharge Planning Expected Discharge Disposition: Home or Self Care (01) (pending clinical course) Signed Benedict Pascual MD [facility] Medicine 04/23/2025 3:18 PM * Elliott Nettles CNP - 04/23/2025 8:55 AM EDT Images from the original note were not included. Cardiology Inpatient Progress Note Subjective Reason for consult: Chest pain. HPI: Kristy Doherty is a 69 y.o. year old male with significant medical history of hypertension, paroxysmal atrial fibrillation s/p Watchman 02/06/2025, chronic HFrEf (25-30%) s/p ICD 08/2022, olecranon bursitis, and CAD who presented to hospital for chest pain. Patient reports having substernal chest pain, radiating to his back and neck since yesterday evening. Patient reports that his blood pressure has been running in the low 90s over 70s over the past couple of weeks. Denies any recent fever or chills/cough. Patient reports being compliant with all his medications. 04/23/2025: Patient was evaluated at the bedside this morning, accompanied by his . He reports falling out of bed earlier today after the bed was not returned to the lowest position following an EKG. He denies any preceding lightheadedness or dizziness, stating the fall occurred due to the unexpected bed height when getting up. He struck his head during the fall. CT head and cervical spine were obtained and were negative for acute intracranial abnormality. Heart rate is noted to be elevated around 110 bpm, sinus tachycardia. Right elbow swelling was noted on examination. The patient otherwise denies chest pain, shortness of breath, palpitations, lightheadedness, dizziness, or lower extremity edema. 12-24 hour telemetry reviewed: SR/ST, 3 beat VTACH 02:33, 77-138. 04/22/25: No acute events overnight. Blood pressures stable. Denies chest pain, shortness of breath, palpitations or dizziness. Comfortable on room air. 04/21/25: The patient was seen and examined at bedside this morning. He was afebrile and hemodynamically stable, satting well on room air. Noted labile blood pressures overnight, however improving. 200 cc urine output over the past 24 hours with a net positive of near 3 L since admission. NA 127, BNP 254, hemoglobin 12.1 (13), pericardial fluid analysis notable for RBCs 245K. Patient denies any chest pain or shortness of breath. Patient denies any chest tenderness since thepericardial drain was removed. Patient was started on IV antibiotics per primary. Blood pressure improving. 04/20/25: Patient was seen and examined at bedside. Patient was lying comfortably in bed. Continues to be hypotensive s/p gentle fluids. Patient denies any chest pain, shortness of breath, PND, dizziness/lightheadedness. Cardiac drain in place with minimal serosanguinous fluid (around 50-60 ml drain output). Drain removed in the afternoon. 04/19/25: On my evaluation, the patient was lying comfortably in bed. Blood pressure is in the 90s over 70s and patient is tachycardic to the 100s. Reports that the chest pain currently is a 2 out of 10 in intensity and at its worst was around a 5 out of 10. Echocardiogram done showed moderate circumferential pericardial effusion with concerns for early tamponade physiology. PAST MEDICAL HISTORY: Medical History[1] PAST SURGICAL HISTORY: Surgical History[2] FAMILY HISTORY: family history includes Emphysema in his father; Stroke in his mother; pacemaker in his mother. SOCIAL HISTORY: Social History[3] REVIEW OF SYSTEMS: General: Denies fever, chills, fatigue, weight loss, or malaise. HENT: Head: Denies headache or dizziness. Eyes: Denies vision changes. Nose: Denies nasal congestion, discharge, or epistaxis. Throat: Denies pain or difficulty swallowing. Pulmonary: Denies shortness of breath, cough, wheezing, or hemoptysis. Cardiovascular: Denies chest pain, palpitations, dizziness, or syncope. Peripheral Vascular: Denies leg swelling, cold extremities or claudication. Abdomen: Denies abdominal pain, nausea, vomiting, diarrhea, constipation, or bloating. No changes in appetite. Neurological: Denies headaches, weakness, numbness, tingling, or difficulty with coordination. Skin: Denies rashes, lesions, or itching. ALLERGIES: Allergies[4] Objective 12-24 hour telemetry reviewed: /ST 3 beat VTACH 02:33, 77-138. CURRENT MEDS: allopurinol, 300 mg, oral, Daily aspirin, 81 mg, oral, Daily with breakfast atorvastatin, 40 mg, oral, Nightly clopidogrel, 75 mg, oral, Daily colchicine, 0.6 mg, oral, BID dapagliflozin propanediol, 10 mg, oral, Once Daily enoxaparin, 40 mg, subcutaneous, Daily metoprolol succinate XL, 12.5 mg, oral, Daily mometasone-formoterol, 2 puff, inhalation, BID [Held by provider] spironolactone, 25 mg, oral, Daily PRN medications: acetaminophen, albuterol, naloxone OR naloxone OR naloxone, ondansetron ODT OR ondansetron, sennosides-docusate sodium Patient Vitals for the past 24 hrs: BP Temp Temp src Pulse Resp SpO2 Weight 04/23/25 0910 97/81 36.3 ??C (97.3 ??F) Temporal (!) 116 18 98 % -- 04/23/25 0454 90/74 -- -- (!) 113 18 98 % -- 04/23/25 0418 -- -- -- -- -- -- 80.4 kg (177 lb 3.2 oz) 04/23/25 0310 109/85 -- -- (!) 121 -- -- -- 04/23/25 0300 109/85 -- -- (!) 128 -- -- -- 04/23/25 0258 -- -- -- (!) 134 -- -- -- 04/23/25 0257 -- -- -- (!) 140 -- -- -- 04/23/25 0256 -- -- -- (!) 137 -- -- -- 04/22/25 1926 126/88 36.8 ??C (98.2 ??F) Temporal 83 14 98 % -- 04/22/25 1600 122/84 36.3 ??C (97.3 ??F) Temporal 91 18 -- -- 04/22/25 1130 125/83 36.4 ??C (97.5 ??F) Temporal 76 18 98 % -- BP 97/81 (BP Location: Right arm, Patient Position: Lying) Pulse (!) 116 Temp 36.3 ??C (97.3 ??F) (Temporal) Resp 18 Ht 1.727 m (5' 8 ) Wt 80.4 kg (177 lb 3.2 oz) SpO2 98% BMI 26.94 kg/m?? Wt Readings from Last 3 Encounters: 04/23/25 80.4 kg (177 lb 3.2 oz) 04/03/25 84.8 kg (187 lb) 02/26/25 85.7 kg (189 lb) PHYSICAL EXAM: General: Alert and oriented, Appears comfortable in no acute distress. HENT: Head: Normocephalic, atraumatic. Eyes: Conjunctiva clear, sclera anicteric. No periorbital edema. Nose: No nasal congestion or discharge. Throat: Mucous membranes moist and pink. Neck: Supple, no lymphadenopathy. No bruits. No jugular venous distension (JVD) at 45??. Pulmonary: Symmetrical chest rise, no accessory muscle [...] refill <2 seconds. No diaphoresis or ecchymosis. Relevant Lab Results: Lab Results Component Value Date WBC 5.60 04/23/2025 HGB 11.9 (L) 04/23/2025 HCT 35.0 (L) 04/23/2025 MCV 93.8 04/23/2025 PLT 223 04/23/2025 Lab Results Component Value Date NA 134 (L) 04/23/2025 K 4.1 04/23/2025 CL 99 04/23/2025 ANIONGAP 13 04/23/2025 BUN 18 04/23/2025 CREATININE 1.11 04/23/2025 CALCIUM 8.4 (L) 04/23/2025 MG 1.6 (L) 04/23/2025 Lab Results Component Value Date BILITOT 0.5 04/23/2025 ALKPHOS 48 04/23/2025 AST 34 04/23/2025 ALT 18 04/23/2025 PROT 6.8 04/23/2025 ALBUMIN 3.7 04/23/2025 No results found for: CHOLESTEROL , CHOLESTEROL TOTAL , TRIGLYCERIDES , HDL , LDL CHOLESTEROL , LDL DIRECT , LDL CALC No results found for: THYROID , TSH , FREE T4 No results found for: DIGOXIN LVL No results found for: HGBA1C Lab Results Component Value Date TROPONIN I 0.04 07/02/2022 Lab Results Component Value Date BNP 254 (H) 04/19/2025 BNP 511 (H) 07/03/2022 BNP 632 (H) 07/02/2022 I have personally reviewed and analyzed the above laboratory results. These findings have been analyzed in the context of the patient's clinical presentation. Relevant Imaging Results / Cardiovascular Diagnostic Studies: Encounter Date: 04/19/25 ECG 12 lead Result Value Ventricular Rate 120 Atrial Rate 120 ME Interval 198 QRS DURATION 102 QT Interval 294 QTC CALCULATION(BAZETT) 415 P Welch 64 R-Welch 38 T Wave Welch 116 Impression Sinus tachycardia Low voltage QRS Septal infarct , age undetermined Abnormal ECG When compared with ECG of 19-APR-2025 18:24, Premature ventricular complexes are no longer Present Confirmed by Jeffy VERNON, MITESH Pruett ([id number]) on 04/23/2025 8:14:48 AM Limited Echo (TTE) w/wo Limited Doppler, Color Flow, Imaging Agent, Strain, 3D, Bubble Study 1 1 [facility] Heart Station [address] [id number] [phone] (fax) Echocardiogram-[facility] Name: KRISTY DOHERTY Study Date: 04/23/2025 07:26 AM B/P: 90 mmHg/74 mmHg HR: 111 bpm Date of : 1955 Location: [facility] Height: 68 in. Age: 69 year(s) Patient Room: 3183 Weight: 177 lb. Gender: Male Patient Status: InPt BSA: 1.94 m2 Indication: Limited; pericardial effusion, S/P 35 mm Watchman device FLX, S/P Pericardiocentesis, H/O 25-30%, Pacemaker/AICD Examination: Limited Echo/Limited Doppler, Color flow imaging Image Quality: Good Patient Consent: Procedure explained to patient Conclusions Left Ventricle: Global left ventricular systolic function is severely reduced. The EF is 20 % visually. Regional wall motion abnormalities (see diagram). Right Ventricle: Severely reduced right ventricular systolic function. A pacemaker wire is seen in the right ventricle. Doppler studies suggest moderately elevated right sided pressures (elevated pulmonary pressure). Mitral Valve: Mild to moderate mitral regurgitation. Aortic Valve: Mild aortic valve regurgitation. Tricuspid Valve: Moderate tricuspid regurgitation. Overall Conclusions: Decrease in right ventricular systolic function and increase in tricuspid insufficiency when compared to previous study. Measurements Left Ventricle Label Value Normal Value LVEF visual 20 % Tricuspid Valve Label Value Normal Value RA Pressure 8 mmHg RVSP 49 mmHg TR Vmax 3.22 m/s Great Vessels Label Value Normal Value IVC 2 cm (1.2cm - 2.3cm) Valvular Assessment LVOT 0.7 - 1.1 m/sec Aortic Valve 1.0 - 1.7 m/sec Mitral Valve 0.6 - 1.3 m/sec Tricuspid Valve 0.3 - 0.7 m/sec Pulmonic Valve 0.6 - 0.9 m/sec Regurgitation Mild MildMod Moderate Findings Left Ventricle: Global left ventricular systolic function is severely reduced. The EF is 20 % visually. Regional wall motion abnormalities (see diagram). The basal anterior, basal anteroseptal, basal inferoseptal, basal inferior, basal inferolateral, basal anterolateral, mid inferoseptal, mid inferior and mid inferolateral left ventricular wall segments are hypokinetic. The mid anterior, mid anteroseptal, mid anterolateral, apical anterior, apical septal, apical inferior, apical lateral and apex left ventricular wall segments are akinetic. Right Ventricle: The right ventricular free wall is akinetic in the distal two-thirds. Severely reduced right ventricular systolic function. A pacemaker wire is seen in the right ventricle. Doppler studies suggest moderately elevated right sided pressures (elevated pulmonary pressure). Mitral Valve: The mitral valve is normal in mobility and thickness. Mild to moderate mitral regurgitation. Aortic Valve: The aortic valve opens well. Mildly sclerosed aortic valve cusps. Mild aortic valve regurgitation. Tricuspid Valve: Normal tricuspid valve. Moderate tricuspid regurgitation. Pulmonic Valve: Pulmonary valve not visualized. Great Vessels: IVC: The IVC is normal in size. There is no inspiratory collapse of the IVC. Pericardium: There is a minimal pericardial effusion. Procedure Staff Reading Group: [facility] Referring Physician: RUDY KING Property Consultant: June Brumfield, DEAN, RVT, RN, BSN Ordering Physician: FANI DENNEY Wall Motion Scores -1 - hyperkinesia, 0 - not evaluated, 1 - normal, 2 - hypokinesia, 3 - akinesia, 4 - dyskinesia Cardiac catheterization PROCEDURE PHYSICIAN: Venu Samaniego MD Clinical Presentation: 69 y.o. Male with chest pain and a new pericardial effusion with concern of cardiac tamponade Final Impression: 1) Right and left heart catheterization did not demonstrate equalization of diastolic pressures, however, there was significant aortic pressure variation with inspiration (25 mmHg) and elevated R atrial, RVEDP and LV EDP 2) Pericardiocentesis, which removed 300 ml serosanguinous fluid, demonstrated equalization of R atrial and pericardial pressures, however RVEDP was greater than pericardial pressure Procedures Performed: right and left heart catheterization, ultrasound guidance for vascular access, pericardiocentesis Procedure Description: The patient was brought to the cardiac catheterization lab in a fasting state. Informed written consent was obtained. javier-out was performed. he was prepped and draped in usual sterile fashion and 1% lidocaine was infiltrated. Using ultrasound guidance and a micropuncture access technique a 6 Hungarian sheath was placed in the right femoral vein a 4 Fr sheath was placed in the RFA. The Carrasquillo catheter was advanced under fluoroscopic and hemodynamic monitoring to the right atrium. Pressure obtained of the right atrium, right ventricle, pulmonary artery, pulmonary capillary position. Oxygen saturation drawn for the pulmonary artery and [place] cardiac with a cardiac index were calculated. A 4 Fr pigtail was placed in the LV and simultaneous pressures obtained. After reviewing the pressure data it was determined to perform therapeutic pericardiocentesis. Anesthesia was obtained over the L subxiphoid region. Using ultrasound and fluoroscopic guidance the pericardium was entered with a micropuncture wire and a 6 Fr pericardial drain placed. Pressures were repeated. All catheters and wires were removed. The sheath was removed and pressure was applied to obtain hemostasis. Specimens Removed: None Complications: None Hemodynamic Data, baseline: RA: 15/12/12 mmHg Pericardi RV: 38/16 mmHg PA: 37/19/26 mmHg PCWP: mmHg LV: 90/15 mmHg CO: 6.04 L/min CI: 3.07 L/min/m2 O2 Sat: PA sat: 67% AO sat: 90% Hemodynamic Data, Pericardium: RA: 12 mmHg Pericardium: 12 mmHg Hemodynamic Data, Post-pericardiocentesis: RA: 8 mmHg Pericardium: 3 mmHg ECG 12 lead Sinus tachycardia Low voltage QRS Septal infarct , age undetermined Abnormal ECG When compared with ECG of 19-APR-2025 18:24, Premature ventricular complexes are no longer Present Confirmed by Jeffy VERNON, MITESH Pruett ([id number]) on 04/23/2025 8:14:[address] cervical spine wo IV contrast Narrative: CT CERVICAL SPINE WO IV CONTRAST HISTORY: Fall, neck pain COMPARISON: None. TECHNIQUE: Multi detector CT slices of the cervical spine were obtained without IV contrast. All CT scans at this facility use dose modulation, iterative reconstruction, and/or weight based dosing when appropriate to reduce radiation dose to as low as reasonably achievable. FINDINGS: The cervical alignment is maintained without spondylolisthesis. The vertebral body heights are preserved. Multilevel degenerative disc disease with disc space narrowing most prominently at C6-C7. Multilevel facet degenerative changes which contribute to at least moderate bony neural foraminal stenosis at C3-C4 on the right. No acute fracture is identified. The craniocervical junction and atlantoaxial joint are intact. No destructive osseous lesion. The prevertebral soft tissues are within normal limits. The paraspinous soft tissues are within normal limits. Strandy left apical airspace opacity. Impression: No evidence of acute fracture or traumatic malalignment. Approved by:Phill Orellana 4:14 AM. I, Ayden Corbin MD,have reviewed the image(s) and agree with the findings in this report. Electronically signed: Ayden Corbin MD. CT head wo IV contrast Narrative: CT HEAD WO IV CONTRAST HISTORY: Fall, head trauma, nausea. COMPARISON: None. TECHNIQUE: CT brain without intravenous contrast. Automated exposure control was utilized. All CT scans at this facility use dose modulation, iterative reconstruction, and/or weight based dosing when appropriate to reduce radiation dose to as low as reasonably achievable. FINDINGS: No acute, territorial region of diminished acosta-white differentiation. No evidence of acute intracranial hemorrhage. No mass effect, shift of midline structures, or extra-axial fluid collection. Mild global parenchymal volume loss. Mild heterogeneity of the deep, periventricular white matter most commonly seen in the setting of chronic microvascular ischemic changes. Disconjugate gaze. Polypoid mucosal thickening within the left maxillary sinus. Bilateral maxillary antrostomies. No displaced calvarial fracture. Degenerative changes of the left temporomandibular joint joint. Impression: * No acute intracranial abnormality, by CT. * Chronic and senescent changes as described. Approved by:Phill Orellana 4:07 AM. I, Ayden Corbin MD,have reviewed the image(s) and agree with the findings in this report. Electronically signed: Ayden Corbin MD. I have personally reviewed and analyzed all available cardiac diagnostic tests and imaging reports.Findings have been analyzed in the context of the patient's clinical status. ASSESSMENT & PLAN #Chest pain #Moderate pericardial effusion Denies chest pain -Circumferential moderate pericardial effusion s/p RHC, LHC and pericardiocentesis 04/19/2025 >>Low suspicion of cardiac tamponade >>No evidence of equalization of diastolic pressures on RHC and LHC; RVEDP exceed pericardialpressure, making tamponade physiology less likely >>Pericardial fluid analysis - serosanguinous, RBCs 245k >>Pericardial drain removed 04/20 after no effusion seen on echo >>Etiology remains unclear - acute pericarditis cannot be excluded >>CRP significantly elevated, recommend obtaining septic/infectious workup to determine otherlikely etiology for hypotension - IV cefazolin started per primary. CRP 04/19/25 145.7, 04/23/25 39.4 Repeat TTE (limited) 04/23/2025: EF 20%, minimal pericardial fusion - Continue colchicine 0.6 mg BID #Chronic HFrEF #Hx of Hypertension -NYHA II Appears compensated TTE 8 04/23/2025 (limited): EF 20%, minimal pericardial fusion TTE 04/20/2025 (limited): EF 30%, no pericardial fusion (status post pericardiocentesis 300 cc removed) RVEDP was greater than pericardial pressure TTE 04/19/2025: EF 60%, moderate circumferential pericardial fusion TTE (limited) from today 04/23 shows severely reduced RV systolic function which is a new finding. Also, of note no inspiratory collapse of IVC. His 04/20/2025 TTE showed RV systolic function that was normal, and IVC was thin and collapsed. -S/p ICD GDMT limited by hypotension: - Continue Farxiga 10 mg daily - Will add metoprolol succinate 12.5 mg daily - Will order RHC Spironolactone remains on hold #Paroxysmal atrial fibrillation -[id number] = 3 (HF, HTN, age 65-74) 12-24 hour telemetry reviewed: SR/ST, 3 beat VTACH 02:33, 77-138. -S/p Watchman procedure 02/06/2025, continue DAPT (clopidogrel 75 mg, aspirin 81 mg) #Nonobstructive CAD #Dyslipidemia Denies chest pain -Continue aspirin and atorvastatin Plan Overview: Optimize HFrEF GDMT as BP tolerates ---> will add metoprolol succinate 12.5 mg daily today Continue colchicine 0.6 mg twice daily Replace magnesium for goal > 2.0 Will order RHC for tomorrow - NPO at midnight Follow-up appointment scheduled 05/01/2025 in cardiac clinic This note was partially composed using voice recognition software. While every effort was made to ensure accuracy, some unintentional commodities requirements analyst errors may be present. [facility] Cardiovascular Medicine [1] Past Medical History: Diagnosis Date Asthma 07/29/2012 CHF (congestive heart failure) (CMS/HCC) Coronary artery disease History of malignant neoplasm of prostate 07/03/2022 Hypertension 07/03/2022 [2] Past Surgical History: Procedure Laterality Date BAND HEMORRHOIDECTOMY CARDIAC CATHETERIZATION PROSTATECTOMY SINUS SURGERY [3] Social History Tobacco Use Smoking status: Former Types: Cigarettes Smokeless tobacco: Never Substance Use Topics Alcohol use: Yes Alcohol/week: 14.0 standard drinks of alcohol Types: 14 Cans of beer per week Comment: occasional Drug use: Never [4] Allergies Allergen Reactions Octacosanol Unknown Other Reaction(s): Unknown * Yanely Archer CNP - 04/22/2025 10:05 AM EDT Images from the original note were not included. Cardiology Inpatient Progress Note SUBJECTIVE Reason for consult: chest pain HPI: Kristy Doherty is a 69 y.o. male with hypertension, paroxysmal atrial fibrillation s/p Watchman 02/06/2025, chronic HFrEf (25-30%) s/p ICD 08/2022, olecranon bursitis, and CAD who presented to hospital for chest pain. Patient reports having substernal chest pain, radiating to his back and neck since yesterday evening. Patient reports that his blood pressure has been running in the low 90s [id number] over the past couple of weeks. Denies any recent fever or chills/cough. Patient reports being compliant with all his medications. 04/19/25: On my evaluation, the patient was lying comfortably in bed. Blood pressure is in the 90s over 70s and patient is tachycardic to the 100s. Reports that the chest pain currently is a 2 out of 10 in intensity and at its worst was around a 5 out of 10. Echocardiogram done showed moderate circumferential pericardial effusion with concerns for early tamponade physiology. 04/20/25: Patient was seen and examined at bedside. Patient was lying comfortably in bed. Continues to be hypotensive s/p gentle fluids. Patient denies any chest pain, shortness of breath, PND, dizziness/lightheadedness. Cardiac drain in place with minimal serosanguinous fluid (around 50-60 ml drain output). Drain removed in the afternoon. 04/21/25: The patient was seen and examined at bedside this morning. He was afebrile and hemodynamically stable, satting well on room air. Noted labile blood pressures overnight, however improving. 200 cc urine output over the past 24 hours with a net positive of near 3 L since admission. NA 127, BNP 254, hemoglobin 12.1 (13), pericardial fluid analysis notable for RBCs 245K. Patient denies any chest pain or shortness of breath. Patient denies any chest tenderness since thepericardial drain was removed. Patient was started on IV antibiotics per primary. Blood pressure improving. 04/22/25: No acute events overnight. Blood pressures stable. Denies chest pain, shortness of breath, palpitations or dizziness. Comfortable on room air. Problem List[1] Medical History[2] Surgical History[3] Family History[4] Social History[5] Allergies[6] Current Outpatient Medications Medication Instructions albuterol 90 mcg/actuation inhaler 1 puff, inhalation, 2 times daily allopurinol (ZYLOPRIM) 300 mg, Daily amoxicillin (AMOXIL) 2,000 mg, oral, Once as needed aspirin 81 mg, oral, Daily with breakfast atorvastatin (LIPITOR) 40 mg, oral, Nightly clopidogrel (PLAVIX) 75 mg, oral, Daily dapagliflozin propanediol (FARXIGA) 10 mg, oral, Once Daily Dupixent Syringe 300 mg, Every 14 days fluticasone (Flonase) 50 mcg/actuation nasal spray 1 spray, 2 times daily fluticasone propion-salmeteroL (Advair Diskus) 500-50 mcg/dose diskus inhaler 1 puff, 2 times daily metoprolol succinate XL (TOPROL-XL) 50 mg, oral, Once Daily, Do not crush or chew. sacubitril-valsartan (Entresto) 97-103 mg tablet 1 tablet, oral, 2 times daily spironolactone (ALDACTONE) 25 mg, oral, Daily Inpatient scheduled medications allopurinol, 300 mg, oral, Daily aspirin, 81 mg, oral, Daily with breakfast atorvastatin, 40 mg, oral, Nightly clopidogrel, 75 mg, oral, Daily colchicine, 0.6 mg, oral, BID dapagliflozin propanediol, 10 mg, oral, Once Daily enoxaparin, 40 mg, subcutaneous, Daily [Held by provider] metoprolol succinate XL, 50 mg, oral, Once Daily mometasone-formoterol, 2 puff, inhalation, BID [Held by provider] spironolactone, 25 mg, oral, Daily PRN medications: acetaminophen, albuterol, naloxone OR naloxone OR naloxone, ondansetron ODT OR ondansetron, sennosides-docusate sodium Review of Systems Constitutional: Negative for fever and malaise/fatigue. Cardiovascular: Negative for chest pain, dyspnea on exertion, leg swelling and palpitations. Respiratory: Negative for shortness of breath. Neurological: Negative for dizziness. OBJECTIVE 12-24 hour telemetry reviewed: sinus rhythm 79 (75-118) w/ PVC's Visit Vitals BP 121/81 (BP Location: Left arm, Patient Position: Lying) Pulse 68 Temp 36.6 ??C (97.9 ??F) (Temporal) Resp 18 Ht 1.727 m (5' 8 ) Wt 82.8 kg (182 lb 9.6 oz) SpO2 98% BMI 27.76 kg/m?? Smoking Status Former BSA 1.99 m?? Physical Exam Vitals reviewed. Constitutional: General: He is not in acute distress. Appearance: Normal appearance. Cardiovascular: Rate and Rhythm: Normal rate and regular rhythm. Pulses: Normal pulses. Radial pulses are 2+ on the right side and 2+ on the left side. Posterior tibial pulses are 2+ on the right side and 2+ on the left side. Heart sounds: Normal heart sounds. No murmur heard. No friction rub. No gallop. Pulmonary: Effort: Pulmonary effort is normal. No respiratory distress. Breath sounds: Normal breath sounds. Abdominal: Palpations: Abdomen is soft. Musculoskeletal: General: Swelling present. Normal range of motion. Cervical back: Normal range of motion and neck supple. Right lower leg: No edema. Left lower leg: No edema. Comments: Right elbow Skin: General: Skin is warm and dry. Capillary Refill: Capillary refill takes less than 2 seconds. Neurological: General: No focal deficit present. Mental Status: He is alert. Labs: Lab Results Component Value Date WBC 7.50 04/20/2025 HGB 12.1 (L) 04/20/2025 HCT 34.0 (L) 04/20/2025 MCV 90.7 04/20/2025 PLT 160 04/20/2025 Lab Results Component Value Date NA 127 (L) 04/20/2025 K 3.9 04/20/2025 CL 93 (L) 04/20/2025 ANIONGAP 12 04/20/2025 BUN 16 04/20/2025 CREATININE 0.94 04/20/2025 CALCIUM 8.8 04/20/2025 MG 2.0 07/04/2022 Lab Results Component Value Date BILITOT 0.7 04/19/2025 ALKPHOS 51 04/19/2025 AST 22 04/19/2025 ALT 27 04/19/2025 PROT 6.8 04/19/2025 ALBUMIN 3.8 04/19/2025 No results found for: CHOLESTEROL , CHOLESTEROL TOTAL , TRIGLYCERIDES , HDL , LDL CHOLESTEROL , LDL DIRECT , LDL CALC No results found for: THYROID , TSH , FREE T4 No results found for: DIGOXIN LVL No results found for: HGBA1C Lab Results Component Value Date TROPONIN I 0.04 07/02/2022 Lab Results Component Value Date HS TROPONIN I 7 04/19/2025 Lab Results Component Value Date BNP 254 (H) 04/19/2025 BNP 511 (H) 07/03/2022 BNP 632 (H) 07/02/2022 I have personally reviewed and analyzed the above laboratory results. These findings have been analyzed in the context of the patient's clinical presentation. Testing/Procedures: Encounter Date: 04/19/25 ECG 12 lead Result Value Ventricular Rate 112 Atrial Rate 112 ME Interval 186 QRS DURATION 114 QT Interval 342 QTC CALCULATION(BAZETT) 466 P Welch 50 R-Welch 19 T Wave Welch 96 Impression Sinus tachycardia with occasional Premature ventricular complexes Low voltage QRS Incomplete left bundle branch block T wave abnormality, consider lateral ischemia Abnormal ECG When compared with ECG of 19-APR-2025 12:03, Premature ventricular complexes are now Present Minimal criteria for Anteroseptal infarct are no longer Present Confirmed by Bobo Raymond ([id number]) on 04/20/2025 7:43:00 AM Transthoracic echo (TTE) limited Result Date: 04/20/2025 1 1 [facility] Heart Station [address] [place] [address] [phone] (fax) Echocardiogram-[facility] Name: KRISTY DOHERTY Study Date: 04/20/2025 01:28 PM B/P: 83 mmHg/58 mmHg HR: 96 bpm Date of : 1955 Location: [facility] Height: 68 in. Age: 69 year(s) Patient Room: 3183 Weight: 179 lb. Gender: Male Patient Status: InPt BSA: 1.95 m2 Indication: Limited; evaluate pericardial effusion, S/P 35 mm Watchman FLX, H/O EF 25 - 30 %, Pacemaker, Cardiomyopathy Examination: Limited Echo/Limited Doppler, Color flow imaging Image Quality: Good Patient Consent: Procedure explained to patient Conclusions Left Ventricle: Global left ventricular systolic function is severely reduced. The EF is 30 % visually. The septum is abnormal in its motion. Right Ventricle: Right ventricular systolic function appears normal. A pacemaker wire is seen in the right ventricle. Doppler studies suggest normal right sided pressures. Pericardium: No pericardial effusion. Measurements Left Ventricle Label Value Normal Value LVEF visual 30 %Tricuspid Valve Label Value Normal Value RA Pressure 3 mmHg RVSP 24 mmHg TR Vmax 2.29 m/s Great Vessels Label Value Normal Value IVC 1.1 cm (1.2cm - 2.3cm) Valvular Assessment LVOT 0.7 - 1.1 m/sec Aortic Valve 1.0 - 1.7 m/sec Mitral Valve 0.6 - 1.3 m/sec Tricuspid Valve 0.3 - 0.7 m/sec Pulmonic Valve 0.6 - 0.9 m/sec Regurgitation Trivial Trivial Trivial Findings Left Ventricle: Global left ventricular systolic function is severely reduced. The EF is 30 % visually. The septum is abnormal in its motion. All scored left ventricular wall segments are hypokinetic. Right Ventricle: Right ventricular systolic function appears normal. A pacemaker wire is seen in the right ventricle. Doppler studies suggest normal right sided pressures. Mitral Valve: The mitral valve is normal in mobility and thickness. Trivial mitral regurgitation. Aortic Valve: Mildly sclerosed aortic valve cusps. Trivial aortic valve regurgitation. Tricuspid Valve: Normal tricuspid valve. Trivial tricuspid regurgitation. Great Vessels: IVC: The IVC is normal in size. There is inspiratory collapse of the IVC. Pericardium: No pericardial effusion. Procedure Staff Reading Group: [facility] Referring Physician:RUDY KING Property Consultant: June Brumfield RDCS, RVT, RN, BSN Ordering Physician: VENU SAMANIEGO Wall Motion Scores -1 - hyperkinesia, 0 - not evaluated, 1 - normal, 2 - hypokinesia, 3 - akinesia, 4 - dyskinesia Transthoracic echo (TTE) limited Result Date: 04/19/2025 1 1 [facility] Heart Station [address] [place] [address] [phone] (fax) Echocardiogram-[facility] Name: KRISTY DOHERTY Study Date: 04/19/2025 02:13 PM B/P: / HR: Date of : 1955 Location: [facility] Height: 68 in. Age: 69 year(s) Patient Room: 3183 Weight: 182 lb. Gender: Male Patient Status: InPt BSA: 1.96 m2 Indication: pericardialeffusion, h/o 35mm Watchman FLX Examination: Limited Echo Image Quality: Fair Findings Pericardium: Moderate pericardial effusion baseline. Post pericardiocentesis there is minimal pericardial effusion. Procedure Staff Reading Group: [facility] Referring Physician: RUDY KING Property Consultant: SAMI Starr, RDCS Ordering Physician: VENU SAMANIEGO Complete Echo (TTE) w/wo Imaging Agent, Strain, 3D, Bubble Study Result Date: 04/19/2025 1 1 [facility] Heart Station [address] [place] [address] [phone] (fax) Echocardiogram-[facility] Name: KRISTY DOHERTY Study Date: 04/19/2025 12:46 PM B/P: 97 mmHg/71 mmHg HR: Date of : 1955 Location: [facility] Height: 68 in. Age: 69 year(s) Patient Room: 3183 Weight: 182 lb. Gender: Male Patient Status: InPt BSA: 1.96 m2 Indication: Chest Pain, s/p 35mm Watchman FLX Examination: Echocardiogram (Complete) ImageQuality: Fair Patient Consent: Procedure explained to patient Conclusions Left Ventricle: The left ventricle is normal size. Global left ventricular systolic function is normal. The EF is 60 % visually. Left ventricular wall thickness is normal. No regional wall motion abnormality. Right Ventricle:The right ventricle appears normal in size. Right ventricular systolic function appears normal. Doppler studies suggest normal right sided pressures. Left Atrium: Watchman device visualized . The left atrium appears normal in size. Aortic Valve: Mild aortic valve regurgitation. Tricuspid Valve: Mild tricuspid regurgitation. Pericardium: There is a moderate circumfrential pericardial effusion. There is also, significant mitral inflow variations consistent with early tamponade physiology. Measurements Left Ventricle Label Value Normal Value LVOT VTI 11.1 cm (18cm - 22cm) LVOT PGmax 3 mmHg LVEF visual 60 % LVOT PGmean 1 mmHg Right Ventricle Label Value Normal Value TAPSE 0.97 cm Aortic Valve Label Value Normal Value AV DVI 0.5 AV VTI 23.1 cm Mitral Valve Label Value Normal Value MV E Vmax 0.54 m/s MV A Vmax 0.79 m/s MV E/A 0.68 MV E/E' lateral 7.6 MV E' lateral 0.07 m/s Tricuspid Valve Label Value Normal Value RA Pressure 3 mmHg RVSP 30 mmHg TR Vmax 2.59 m/s Valvular Assessment LVOT 0.7 - 1.1 m/sec Aortic Valve 1.0 - 1.7 m/sec Mitral Valve 0.6 - 1.3 m/sec Tricuspid Valve 0.3 - 0.7 m/sec Pulmonic Valve 0.6 - 0.9 m/sec Regurgitation Mild No Mild No Max Velocity 0.81 m/sec 1.62 m/s 0.54m/sec 1.02 m/s Max Gradient 10.00 mmHg 4.00 mmHg Mean Gradient 5.00 mmHg Findings Left Ventricle: The left ventricle is normal size. Global left ventricular systolic function is normal. The EF is 60 % visually. Left ventricular wall thickness is normal. No regional wall motion abnormality. Right Ventricle: The right ventricle appears normal in size. Right ventricular systolic function appears normal. Doppler studies suggest normal right sided pressures. Left Atrium: Watchman device visualized .The left atrium appears normal in size. Right Atrium: The right atrium appears normal in size. Mitral Valve: The mitral valve is normal in mobility and thickness. No mitral regurgitation. Aortic Valve: Focal aortic cusp thickening is noted. Mild aortic valve regurgitation. Tricuspid Valve: Normal tricuspid valve. Mild tricuspid regurgitation. Pulmonic Valve: Normal pulmonary valve. No pulmonary regurgitation. Aorta: The aortic root exhibits normal size. Great Vessels: IVC: Normal size and course of the IVC. Pericardium: There is a moderate circumfrential pericardial effusion. There is also, significant mitral inflow variations consistent with early tamponade physiology. Procedure Staff Reading Group: [facility] Property Consultant: Bryanna Cazares RDCS Ordering Physician: HAKAN Duongally signed by MD Mitesh Vernon on 04/19/2025 at 01:44 PM Limited Transthoracic Echo (TTE) w/wo Contrast, Color Flow, Imaging Agent, Strain, 3D, Bubble Study Result Date: 02/07/2025 1 1 [facility] Heart Station [address] [place] [address] [phone] (fax) Echocardiogram-[facility] Name: KRISTY DOHERTY Study Date: 02/07/2025 08:02 AM B/P: 118 mmHg/85 mmHg HR: 63 bpm Date of : 1955 Location: [facility] Height: 68 in. Age: 69 year(s) Patient Room: 3176 Weight: 186 lb. Gender: Male Patient Status: InPt BSA: 1.98 m2 Indication: Atrial Fibrillation, Pacemaker, s/p 35mm Watchman FLX Examination: Limited Echo, Color flow imaging, Lumason Contrast Image Quality: Fair Patient Consent: Procedure explained to patient Exam Details Contrast: I.V. dose of Lumason Conclusions Left Ventricle: The left ventricle is [...] Aortic Valve: Mild aortic valve regurgitation. Overall C onclusions: Due to suboptimal imaging Lumason contrast was administered for opacification and better delineation of endocardial borders. Well seated 35mm Watchman FLX PRO. Measurements Left VentricleLabel Value Normal Value LVDd, 2D 5.86 cm (4.2cm - 5.9cm) LVDs, 2D 5.21 cm (2.1cm - 4cm) IVSd, 2D 0.91 cm (0.6cm - 1.1cm) LVPWd, 2D 1.06 cm (0.6cm - 1cm) LV Mass, 2D ASE 232.58 g LV Mass Index, 2D ASE 117.5 g/m?? (50g/m?? - 102.4g/m??) RWT, MM 0.36 (0 - 0.42) LVSVI, 2D 20.7 ml/m2 Aorta Label Value Normal Value AoRoot, 2D 3.4 cm (1.4cm - 3.8cm) Valvular Assessment LVOT 0.7 - 1.1 m/sec Aortic Valve1.0 - 1.7 m/sec Mitral Valve 0.6 - 1.3 m/sec Tricuspid Valve 0.3 - 0.7 m/sec Pulmonic Valve 0.6 - 0.9 m/sec Regurgitation Mild trivMil Findings Left Ventricle: The left ventricle is normal size. Global left ventricular systolic function is severely reduced. EF range is estimated at 25 % -30 %. Leftventricular wall thickness is increased. Diffuse global hypokinesis. Right Ventricle: The right ventricle is normal in size. Normal right ventricular systolic function. A pacemaker wire is seen in the right atrium and right ventricle. Left Atrium: The left atrium is normal in size. Right Atrium: The right atrium is normal in size. Mitral Valve: There is nonspecific thickening of the mitral valve leaflet. Trvial to mild mitral regurgitation. Aortic Valve: Focal aortic cusp thickening is noted. Mild aortic valve regurgitation. Tricuspid Valve: Normal tricuspid valve. Pulmonic Valve: Normal pulmonary valve. Aorta: The aortic root exhibits normal size. Great Vessels: IVC: The IVC is normal in size. Pericardium: No pericardial effusion. Procedure Staff Reading Group: [facility] Referring Physician: RUDY KING Property Consultant: SAMI Starr, RDCS Ordering Physician: CHUCK FUNEZ Transesophageal echo (MASON) Result Date: 12/01/2024 1 [facility] Heart Station [address] [place] [address] [phone] (fax) Transesophageal Echocardiogram-[facility] Name: KRISTY DOHERTY Study Date: 12/01/2024 12:00 PM B/P: 134 mmHg/87 mmHg HR: 80 bpm Date of : 1955 Location: [facility] Height: 68 in. Age: 69 year(s) Patient Room: Weight: 194 lb. Gender: Male PatientStatus: OutPt BSA: 2.02 m2 Indication: Atrial Fibrillation, Pre-Watchman Examination: MASON, Color flow imaging Image Quality: Excellent Patient Consent: Informed, written consent was obtained for the procedure Exam Location: A MASON was performed in the [facility] without complications Anesthesia Pharyngeal anesthesia with viscous Lidocaine Conclusions Left Ventricle: The left ventricle is normal size. Global left ventricular systolic function is severely reduced. EF range is estimated at 25 % -30 %. Left ventricular wall thickness is normal. Diffuse global hypokinesis. Right Ventricle: The right ventricle appears normal in size. Normal right ventricular systolic function. Left Atrium: The left a trium is severely enlarged. Left Atrium Appendage: The left atrial appendage is monolobular. Normalleft atrial appendage, no thrombus seen. ROBB measutments [...] 50 micrograms Valvular Assessment LVOT 0.7 - 1.1m/sec Aortic Valve 1.0 - 1.7 m/sec Mitral Valve 0.6 - 1.3 m/sec Tricuspid Valve 0.3 - 0.7 m/sec Pulm onic Valve 0.6 - 0.9 m/sec Regurgitation Mod [...] atrium is severely enlarged. Left Atrium Appendage: Theleft atrial appendage is normal. The left atrial [...] is a minimal pericardial effusion. The Attending Ph ysician was present and personally reviewed the examination with the fellow Procedure Staff ReadingGroup: [facility] Referring Physician: RUDY KING Property Consultant: DORIAN Walker Ordering Physician: Hay William MD No nuclear medicine results found for the past 12 months LHC/RHC/pericardiocentesis 04/19/2025 PROCEDURE PHYSICIAN: Venu Samaniego MD Clinical Presentation: 69 y.o. Male with chest pain and a new pericardial effusion with concern of cardiac tamponade Final Impression: 1) Right and left heart catheterization did not demonstrate equalization of diastolic pressures, however, there was significant aortic pressure variation with inspiration (25 mmHg) and elevated R atrial, RVEDP and LV EDP 2) Pericardiocentesis, which removed 300 ml serosanguinous fluid, demonstrated equalization of R atrial and pericardial pressures, however RVEDP was greater than pericardial pressure I have personally reviewed and analyzed all available cardiac diagnostic tests and imaging reports.Findings have been analyzed in the context of the patient's clinical status. ASSESSMENT/PLAN: #Chest pain #Moderate pericardial effusion -Circumferential moderate pericardial effusion s/p RHC, LHC and pericardiocentesis 04/19/2025 >>Low suspicion of cardiac tamponade >>No evidence of equalization of diastolic pressures on RHC and LHC; RVEDP exceed pericardialpressure, making tamponade physiology less likely >>Pericardial fluid analysis - serosanguinous, RBCs 245k >>Pericardial drain removed 04/20 after no effusion seen on echo >>Etiology remains unclear - acute pericarditis cannot be excluded >>CRP significantly elevated, recommend obtaining septic/infectious workup to determine otherlikely etiology for hypotension - IV cefazolin started per primary >>Continue colchicine 0.6 mg BID -Repeat TTE 04/23 #Paroxysmal atrial fibrillation -S/p Watchman procedure 02/06/2025, on DAPT -[id number] score 3 (HF, HTN, age 65-74) #Chronic HFrEF #Hypertension -NYHA II -Compensated; appears euvolemic on physical exam -EF 30% -S/p ICD -GDMT (limited by hypotension): Farxiga >>Metoprolol succinate/spironolactone on hold d/t hypotension >>BP's improving today; consider resuming tomorrow #Nonobstructive CAD #Dyslipidemia -Continue aspirin and atorvastatin -Remainder of care as per primary team and other consultative services -Cardiology team will continue to follow Yanely Archer CNP [facility] [1] Patient Active Problem List Diagnosis New onset of congestive heart failure (CMS/HCC) Uncomplicated asthma History of malignant neoplasm of prostate Hypomagnesemia Primary hypertension Syncope and collapse Coronary artery disease involving chemehuevi coronary artery of chemehuevi heart with angina pectoris Chronic systolic heart failure (CMS/HCC) Depressive disorder Dyslipidemia Prediabetes Seasonal allergic rhinitis Steatosis of liver Vitamin D deficiency Cardiomyopathy (CMS/HCC) ICD (implantable cardioverter-defibrillator) in place Benign essential hypertension Chronic pansinusitis Hyperlipidemia Malignant tumor of prostate (CMS/HCC) Nasal polyp Mild persistent asthma without complication Paroxysmal atrial fibrillation (CMS/HCC) Atrial fibrillation (CMS/HCC) Chest pain Heart failure with reduced ejection fraction (CMS/HCC) Pericardial effusion Hyponatremia Leukocytosis Hypotension due to hypovolemia [2] Past Medical History: Diagnosis Date Asthma 07/29/2012 CHF (congestive heart failure) (CMS/HCC) Coronary artery disease History of malignant neoplasm of prostate 07/03/2022 Hypertension 07/03/2022 [3] Past Surgical History: Procedure Laterality Date BAND HEMORRHOIDECTOMY CARDIAC CATHETERIZATION PROSTATECTOMY SINUS SURGERY [4] Family History Problem Relation Name Age of Onset Other (pacemaker) Mother Stroke Mother Emphysema Father [5] Social History Tobacco Use Smoking status: Former Types: Cigarettes Smokeless tobacco: Never Substance Use Topics Alcohol use: Yes Alcohol/week: 14.0 standard drinks of alcohol Types: 14 Cans of beer per week Comment: occasional Drug use: Never [6] Allergies Allergen Reactions Octacosanol Unknown Other Reaction(s): Unknown * Osito Kline MD - 04/22/2025 8:11 AM EDT Images from the original note were not included. [facility] Medicine Daily Progress Note - 04/22/2025 8:12 PM; Room: [address] [place] [address] Admission: 04/19/2025 10:46 AM; Length of stay: 3 days THE HOSPITALIST TEAM PREFERS TO USE EPIC CHAT FOR NON-URGENT COMMUNICATION 7AM- 7PM. IF I DO NOT RESPOND WITHIN 20 MINUTES OR URGENT MATTERS, PLEASE CALL THROUGH THE CLINICAL LAB SPECIALIST. FROM 7PM-7AM, PLEASE PAGE [phone](COVR). Code Status: Full Code Barriers to Discharge: Repeat ECHO on Wednesday Expected Discharge Date: 04/23 Discharge Destination: home Overview Patient is seen for evaluation and management of pericardial effusion, concern for tamponade, hypotension. Subjective Patient was seen and examined this morning. No events overnight. Physical Exam Visit Vitals BP 122/84 (BP Location: Right arm, Patient Position: Sitting) Pulse 91 Temp 36.3 ??C (97.3 ??F) (Temporal) Resp 18 Intake/Output Summary (Last 24 hours) at 04/22/20252011 Last data filed at 04/22/2025 0900 Gross per 24 hour Intake 340 ml Output 225 ml Net 115 ml Physical Exam Cardiovascular: Rate and Rhythm: Normal rate and regular rhythm. Pulmonary: Effort: Pulmonary effort is normal. Breath sounds: Normal breath sounds. Abdominal: General: Abdomen is flat. Palpations: Abdomen is soft. Neurological: General: No focal deficit present. Mental Status: He is alert and oriented to person, place, and time. Estimated body mass index is 27.76 kg/m?? as calculated from the following: Height as of this encounter: 1.727 m (5' 8 ). Weight as of this encounter: 82.8 kg (182 lb 9.6 oz). Assessment and Plan Assessment & Plan Chest pain Pericardial effusion - Echo showed early tamponade. Patient was taken to lab instructor for Pericardiocentesis. Right heart cath was not suggestive for tamponade. 300 ml serosanguinous fluid and pigtail was placed. - Monitor BP. - Continue colchicine per Cardiology. - Repeat echo on Monday 04/23. Cardiomyopathy (CMS/HCC) Heart failure with reduced ejection fraction (CMS/HCC) ICD (implantable cardioverter-defibrillator) in place - Nonischemic cardiomyopathy - Echo this admission showed EF 60%. - Hold Farxiga, Toprol, Entresto, spironolactone due to hypotension. Might resume tomorrow. Atrial fibrillation (CMS/HCC) - Status post Watchman. - Continue aspirin and Plavix. Uncomplicated asthma - Albuterol and switched from his Advair to our equivalent. Primary hypertension Hypotension due to hypovolemia - Hold Toprol, Entresto, spironolactone due to hypotension. Might resume tomorrow Coronary artery disease involving chemehuevi coronary artery of chemehuevi heart with angina pectoris - Nonobstructive. - Continue aspirin, Plavix, Lipitor. Nutrition Screen: Malnutrition Attestation: No dietitian assessment is available at this time. VTE Prophylaxis: Lovenox Scheduled Meds allopurinol, 300 mg, oral, Daily aspirin, 81 mg, oral, Daily with breakfast atorvastatin, 40 mg, oral, Nightly clopidogrel, 75 mg, oral, Daily colchicine, 0.6 mg, oral, BID dapagliflozin propanediol, 10 mg, oral, Once Daily enoxaparin, 40 mg, subcutaneous, Daily [Held by provider] metoprolol succinate XL, 50 mg, oral, Once Daily mometasone-formoterol, 2 puff, inhalation, BID [Held by provider] spironolactone, 25 mg, oral, Daily Pertinent Investigations Hematology: Results from last 7 days Lab Units 04/20/25 0515 04/19/25 1444 04/19/25 1214 CRP mg/L -- 145.7* -- WBC AUTO 10*3/uL 7.50 -- 10.71* HEMOGLOBIN g/dL 12.1* -- 13.0 HEMATOCRIT % 34.0* -- 36.8* MCV fL 90.7 -- 91.5 PLATELETS AUTO 10*3/uL 160 -- 185 Chemistry: Results from last 7 days Lab Units 04/20/25 0515 04/19/25 1214 SODIUM mmol/L 127* 126* POTASSIUM mmol/L 3.9 5.0 CHLORIDE mmol/L 93* 91* CO2 mmol/L 26 28 BUN mg/dL 16 17 CREATININE mg/dL 0.94 0.98 GLUCOSE mg/dL 127* 109* CALCIUM mg/dL 8.8 9.5 Results from last 7 days Lab Units 04/19/25 1214 AST U/L 22 ALT U/L 27 ALK PHOS U/L 51 BILIRUBIN TOTAL mg/dL 0.7 Historical Values: (Includes values prior to this admission) Lab Results Component Value Date CORTISOL 11.2 04/20/2025 No results found for: [id number] , IRON , TIBC , C3 , C4 , COLLIN , CANCA , ASO , PSA , CEA , CA125 , CA199 , AFP , CA153 Imaging Transthoracic echo (TTE) limited 1 1 [facility] Heart Station [address] [place] [address] [phone] (fax) Echocardiogram-[facility] Name: KRISTY DOHERTY Study Date: 04/20/2025 01:28 PM B/P: 83 mmHg/58 mmHg HR: 96 bpm Date of : 1955 Location: [facility] Height: 68 in. Age: 69 year(s) Patient Room: 3183 Weight: 179 lb. Gender: Male Patient Status: InPt BSA: 1.95 m2 Indication: Limited; evaluate pericardial effusion, S/P 35 mm Watchman FLX, H/O EF 25 - 30 %, Pacemaker, Cardiomyopathy Examination: Limited Echo/Limited Doppler, Color flow imaging Image Quality: Good Patient Consent: Procedure explained to patient Conclusions Left Ventricle: Global left ventricular systolic function is severely reduced. The EF is 30 % visually. The septum is abnormal in its motion. Right Ventricle: Right ventricular systolic function appears normal. A pacemaker wire is seen in the right ventricle. Doppler studies suggest normal right sided pressures. Pericardium: No pericardial effusion. Measurements Left Ventricle Label Value Normal Value LVEF visual 30 % Tricuspid Valve Label Value Normal Value RA Pressure 3 mmHg RVSP 24 mmHg TR Vmax 2.29 m/s Great Vessels Label Value Normal Value IVC 1.1 cm (1.2cm - 2.3cm) Valvular Assessment LVOT 0.7 - 1.1 m/sec Aortic Valve 1.0 - 1.7 m/sec Mitral Valve 0.6 - 1.3 m/sec Tricuspid Valve 0.3 - 0.7 m/sec Pulmonic Valve 0.6 - 0.9 m/sec Regurgitation Trivial Trivial Trivial Findings Left Ventricle: Global left ventricular systolic function is severely reduced. The EF is 30 % visually. The septum is abnormal in its motion. All scored left ventricular wall segments are hypokinetic. Right Ventricle: Right ventricular systolic function appears normal. A pacemaker wire is seen in the right ventricle. Doppler studies suggest normal right sided pressures. Mitral Valve: The mitral valve is normal in mobility and thickness. Trivial mitral regurgitation. Aortic Valve: Mildly sclerosed aortic valve cusps. Trivial aortic valve regurgitation. Tricuspid Valve: Normal tricuspid valve. Trivial tricuspid regurgitation. Great Vessels: IVC: The IVC is normal in size. There is inspiratory collapse of the IVC. Pericardium: No pericardial effusion. Procedure Staff Reading Group: [facility] Referring Physician: RUDY KING Property Consultant: June Brumfield, DEAN, RVT, RN, BSN Ordering Physician: VENU SAMANIEGO Wall Motion Scores -1 - hyperkinesia, 0 - not evaluated, 1 - normal, 2 - hypokinesia, 3 - akinesia, 4 - dyskinesia ECG 12 lead Sinus tachycardia with occasional Premature ventricular complexes Low voltage QRS Incomplete left bundle branch block T wave abnormality, consider lateral ischemia Abnormal ECG When compared with ECG of 19-APR-2025 12:03, Premature ventricular complexes are now Present Minimal criteria for Anteroseptal infarct are no longer Present Confirmed by Bobo Raymond ([id number]) on 04/20/2025 7:43:00 AM Discharge Planning Expected Discharge Disposition: Home or Self Care () (pending clinical course) Signed Osito Kline MD Hospital Medicine 04/22/2025 * Mode Franco MD - 04/21/2025 9:01 AM EDT Images from the original note were not included. Cardiology Progress Note Subjective 04/21/25 The patient was seen and examined at bedside this morning. He was afebrile and hemodynamically stable, satting well on room air. Noted labile blood pressures overnight, however improving. 200 cc urine output over the past 24 hours with a net positive of near 3 L since admission. NA 127, BNP 254, hemoglobin 12.1 (13), pericardial fluid analysis notable for RBCs 245K. Patient denies any chest pain or shortness of breath. Patient denies any chest tenderness since thepericardial drain was removed. Patient was started on IV antibiotics per primary. Blood pressure improving. 04/20/25 Patient was seen and examined at bedside. Patient was lying comfortably in bed. Continues to be hypotensive s/p gentle fluids. Patient denies any chest pain, shortness of breath, PND, dizziness/lightheadedness. Cardiac drain in place with minimal serosanguinous fluid (around 50-60 ml drain output). present at bedside demonstrated concern related to his right elbow, he was supposed to follow up with orthopedic outpatient. She is requesting if they can seem in while he is admitted in the hospital. Objective Objective: Patient Vitals for the past 24 hrs: BP Temp Temp src Pulse Resp SpO2 Weight 04/21/25 0820 106/58 36.2 ??C (97.2 ??F) -- 81 14 94 % -- 04/21/25 0425 -- -- -- -- -- -- 82.6 kg (182 lb) 04/21/25 0412 92/68 36.5 ??C (97.7 ??F) Temporal 93 24 95 % -- 04/21/25 0000 108/65 -- -- 83 17 92 % -- 04/20/25 2000 101/65 36.8 ??C (98.2 ??F) Temporal 95 15 95 % -- 04/20/25 1632 93/61 36.6 ??C (97.9 ??F) Temporal 91 17 95 % -- 04/20/25 1200 83/58 -- -- 88 17 94 % -- 04/20/25 1135 90/56 -- Temporal 93 18 96 % -- 04/20/25 0940 80/58 -- -- 91 14 98 % -- Physical Examination: Physical Exam Vitals reviewed. Eyes: Pupils: Pupils are equal, round, and reactive to light. Cardiovascular: Rate and Rhythm: Normal rate. Pulmonary: Effort: Pulmonary effort is normal. Abdominal: General: Abdomen is flat. Musculoskeletal: General: Swelling (right olecranon swelling) present. Normal range of motion. Cervical back: Normal range of motion. Skin: General: Skin is warm. Capillary Refill: Capillary refill takes less than 2 seconds. Neurological: General: No focal deficit present. Mental Status: He is alert and oriented to person, place, and time. Physical Examination: Vitals: 04/21/25819 BP: 106/58 Pulse: 81 Resp: 14 Temp: 36.2 ??C (97.2 ??F) SpO2: 94% Relevant Lab Results Encounter Date: 04/19/25 ECG 12 lead Result Value Ventricular Rate 112 Atrial Rate 112 ME Interval 186 QRS DURATION 114 QT Interval 342 QTC CALCULATION(BAZETT) 466 P Welch 50 R-Welch 19 T Wave Welch 96 Impression Sinus tachycardia with occasional Premature ventricular complexes Low voltage QRS Incomplete left bundle branch block T wave abnormality, consider lateral ischemia Abnormal ECG When compared with ECG of 19-APR-2025 12:03, Premature ventricular complexes are now Present Minimal criteria for Anteroseptal infarct are no longer Present Confirmed by Bobo Raymond ([id number]) on 04/20/2025 7:43:00 AM Lab Results Component Value Date TROPONINI 0.04 07/02/2022 Transthoracic echo (TTE) limited Result Date: 04/20/2025 1 1 [facility] Heart Station [address] [place] [address] [phone] (fax) Echocardiogram-[facility] Name: KRISTY DOHERTY Study Date: 04/20/2025 01:28 PM B/P: 83 mmHg/58 mmHg HR: 96 bpm Date of : 1955 Location: [facility] Height: 68 in. Age: 69 year(s) Patient Room: 3183 Weight: 179 lb. Gender: Male Patient Status: InPt BSA: 1.95 m2 Indication: Limited; evaluate pericardial effusion, S/P 35 mm Watchman FLX, H/O EF 25 - 30 %, Pacemaker, Cardiomyopathy Examination: Limited Echo/Limited Doppler, Color flow imaging Image Quality: Good Patient Consent: Procedure explained to patient Conclusions Left Ventricle: Global left ventricular systolic function is severely reduced. The EF is 30 % visually. The septum is abnormal in its motion. Right Ventricle: Right ventricular systolic function appears normal. A pacemaker wire is seen in the right ventricle. Doppler studies suggest normal right sided pressures. Pericardium: No pericardial effusion. Measurements Left Ventricle Label Value Normal Value LVEF visual 30 %Tricuspid Valve Label Value Normal Value RA Pressure 3 mmHg RVSP 24 mmHg TR Vmax 2.29 m/s Great Vessels Label Value Normal Value IVC 1.1 cm (1.2cm - 2.3cm) Valvular Assessment LVOT 0.7 - 1.1 m/sec Aortic Valve 1.0 - 1.7 m/sec Mitral Valve 0.6 - 1.3 m/sec Tricuspid Valve 0.3 - 0.7 m/sec Pulmonic Valve 0.6 - 0.9 m/sec Regurgitation Trivial Trivial Trivial Findings Left Ventricle: Global left ventricular systolic function is severely reduced. The EF is 30 % visually. The septum is abnormal in its motion. All scored left ventricular wall segments are hypokinetic. Right Ventricle: Right ventricular systolic function appears normal. A pacemaker wire is seen in the right ventricle. Doppler studies suggest normal right sided pressures. Mitral Valve: The mitral valve is normal in mobility and thickness. Trivial mitral regurgitation. Aortic Valve: Mildly sclerosed aortic valve cusps. Trivial aortic valve regurgitation. Tricuspid Valve: Normal tricuspid valve. Trivial tricuspid regurgitation. Great Vessels: IVC: The IVC is normal in size. There is inspiratory collapse of the IVC. Pericardium: No pericardial effusion. Procedure Staff Reading Group: [facility] Referring Physician:RUDY KING Property Consultant: June Brumfield RDCS, RVT, RN, BSN Ordering Physician: VENU SAMANIEGO Wall Motion Scores -1 - hyperkinesia, 0 - not evaluated, 1 - normal, 2 - hypokinesia, 3 - akinesia, 4 - dyskinesia Transthoracic echo (TTE) limited Result Date: 04/19/2025 1 1 [facility] Heart Station [address] [id number] [phone] (fax) Echocardiogram-[facility] Name: KRISTY DOHERTY Study Date: 04/19/2025 02:13 PM B/P: / HR: Date of : 1955 Location: [facility] Height: 68 in. Age: 69 year(s) Patient Room: 3183 Weight: 182 lb. Gender: Male Patient Status: InPt BSA: 1.96 m2 Indication: pericardialeffusion, h/o 35mm Watchman FLX Examination: Limited Echo Image Quality: Fair Findings Pericardium: Moderate pericardial effusion baseline. Post pericardiocentesis there is minimal pericardial effusion. Procedure Staff Reading Group: [facility] Referring Physician: RUYD KING Property Consultant: SAMI Starr, RDCS Ordering Physician: VENU SAMANIEGO Complete Echo (TTE) w/wo Imaging Agent, Strain, 3D, Bubble Study Result Date: 04/19/2025 1 1 [facility] Heart Station [address] [place] [address] [phone] (fax) Echocardiogram-[facility] Name: KRISTY DOHERTY Study Date: 04/19/2025 12:46 PM B/P: 97 mmHg/71 mmHg HR: Date of : 1955 Location: [facility] Height: 68 in. Age: 69 year(s) Patient Room: 3183 Weight: 182 lb. Gender: Male Patient Status: InPt BSA: 1.96 m2 Indication: Chest Pain, s/p 35mm Watchman FLX Examination: Echocardiogram (Complete) ImageQuality: Fair Patient Consent: Procedure explained to patient Conclusions Left Ventricle: The left ventricle is normal size. Global left ventricular systolic function is normal. The EF is 60 % visually. Left ventricular wall thickness is normal. No regional wall motion abnormality. Right Ventricle:The right ventricle appears normal in size. Right ventricular systolic function appears normal. Doppler studies suggest normal right sided pressures. Left Atrium: Watchman device visualized . The left atrium appears normal in size. Aortic Valve: Mild aortic valve regurgitation. Tricuspid Valve: Mild tricuspid regurgitation. Pericardium: There is a moderate circumfrential pericardial effusion. There is also, significant mitral inflow variations consistent with early tamponade physiology. Measurements Left Ventricle Label Value Normal Value LVOT VTI 11.1 cm (18cm - 22cm) LVOT PGmax 3 mmHg LVEF visual 60 % LVOT PGmean 1 mmHg Right Ventricle Label Value Normal Value TAPSE 0.97 cm Aortic Valve Label Value Normal Value AV DVI 0.5 AV VTI 23.1 cm Mitral Valve Label Value Normal Value MV E Vmax 0.54 m/s MV A Vmax 0.79 m/s MV E/A 0.68 MV E/E' lateral 7.6 MV E' lateral 0.07 m/s Tricuspid Valve Label Value Normal Value RA Pressure 3 mmHg RVSP 30 mmHg TR Vmax 2.59 m/s Valvular Assessment LVOT 0.7 - 1.1 m/sec Aortic Valve 1.0 - 1.7 m/sec Mitral Valve 0.6 - 1.3 m/sec Tricuspid Valve 0.3 - 0.7 m/sec Pulmonic Valve 0.6 - 0.9 m/sec Regurgitation Mild No Mild No Max Velocity 0.81 m/sec 1.62 m/s 0.54m/sec 1.02 m/s Max Gradient 10.00 mmHg 4.00 mmHg Mean Gradient 5.00 mmHg Findings Left Ventricle: The left ventricle is normal size. Global left ventricular systolic function is normal. The EF is 60 % visually. Left ventricular wall thickness is normal. No regional wall motion abnormality. Right Ventricle: The right ventricle appears normal in size. Right ventricular systolic function appears normal. Doppler studies suggest normal right sided pressures. Left Atrium: Watchman device visualized .The left atrium appears normal in size. Right Atrium: The right atrium appears normal in size. Mitral Valve: The mitral valve is normal in mobility and thickness. No mitral regurgitation. Aortic Valve: Focal aortic cusp thickening is noted. Mild aortic valve regurgitation. Tricuspid Valve: Normal tricuspid valve. Mild tricuspid regurgitation. Pulmonic Valve: Normal pulmonary valve. No pulmonary regurgitation. Aorta: The aortic root exhibits normal size. Great Vessels: IVC: Normal size and course of the IVC. Pericardium: There is a moderate circumfrential pericardial effusion. There is also, significant mitral inflow variations consistent with early tamponade physiology. Procedure Staff Reading Group: [facility] Property Consultant: Bryanna Cazares RDCS Ordering Physician: HAKAN Canchola signed by MD Mitesh Vernon on 04/19/2025 at 01:44 PM Limited Transthoracic Echo (TTE) w/wo Contrast, Color Flow, Imaging Agent, Strain, 3D, Bubble Study Result Date: 02/07/2025 1 1 [facility] Heart Station [address] [place] [address] [phone] (fax) Echocardiogram-[facility] Name: KRISTY DOHERTY Study Date: 02/07/2025 08:02 AM B/P: 118 mmHg/85 mmHg HR: 63 bpm Date of : 1955 Location: [facility] Height: 68 in. Age: 69 year(s) Patient Room: [facility]6 Weight: 186 lb. Gender: Male Patient Status: InPt BSA: 1.98 m2 Indication: Atrial Fibrillation, Pacemaker, s/p 35mm Watchman FLX Examination: Limited Echo, Color flow imaging, Lumason Contrast Image Quality: Fair Patient Consent: Procedure explained to patient Exam Details Contrast: I.V. dose of Lumason Conclusions Left Ventricle: The left ventricle is [...] Aortic Valve: Mild aortic valve regurgitation. Overall C onclusions: Due to suboptimal imaging Lumason contrast was administered for opacification and better delineation of endocardial borders. Well seated 35mm Watchman FLX PRO. Measurements Left VentricleLabel Value Normal Value LVDd, 2D 5.86 cm (4.2cm - 5.9cm) LVDs, 2D 5.21 cm (2.1cm - 4cm) IVSd, 2D 0.91 cm (0.6cm - 1.1cm) LVPWd, 2D 1.06 cm (0.6cm - 1cm) LV Mass, 2D ASE 232.58 g LV Mass Index, 2D ASE 117.5 g/m?? (50g/m?? - 102.4g/m??) RWT, MM 0.36 (0 - 0.42) LVSVI, 2D 20.7 ml/m2 Aorta Label Value Normal Value AoRoot, 2D 3.4 cm (1.4cm - 3.8cm) Valvular Assessment LVOT 0.7 - 1.1 m/sec Aortic Valve1.0 - 1.7 m/sec Mitral Valve 0.6 - 1.3 m/sec Tricuspid Valve 0.3 - 0.7 m/sec Pulmonic Valve 0.6 - 0.9 m/sec Regurgitation Mild trivMil Findings Left Ventricle: The left ventricle is normal size. Global left ventricular systolic function is severely reduced. EF range is estimated at 25 % -30 %. Leftventricular wall thickness is increased. Diffuse global hypokinesis. Right Ventricle: The right ventricle is normal in size. Normal right ventricular systolic function. A pacemaker wire is seen in the right atrium and right ventricle. Left Atrium: The left atrium is normal in size. Right Atrium: The right atrium is normal in size. Mitral Valve: There is nonspecific thickening of the mitral valve leaflet. Trvial to mild mitral regurgitation. Aortic Valve: Focal aortic cusp thickening is noted. Mild aortic valve regurgitation. Tricuspid Valve: Normal tricuspid valve. Pulmonic Valve: Normal pulmonary valve. Aorta: The aortic root exhibits normal size. Great Vessels: IVC: The IVC is normal in size. Pericardium: No pericardial effusion. Procedure Staff Reading Group: [facility] Referring Physician: RUDY KING Property Consultant: SAMI Starr, RDCS Ordering Physician: CHUCK FUNEZ Transesophageal echo (MASON) Result Date: 12/01/2024 1 [facility] Heart Station [address] [place] [address] [phone] (fax) Transesophageal Echocardiogram-[facility] Name: KRISTY DOHERTY Study Date: 12/01/2024 12:00 PM B/P: 134 mmHg/87 mmHg HR: 80 bpm Date of : 1955 Location: [facility] Height: 68 in. Age: 69 year(s) Patient Room: Weight: 194 lb. Gender: Male PatientStatus: OutPt BSA: 2.02 m2 Indication: Atrial Fibrillation, Pre-Watchman Examination: MASON, Color flow imaging Image Quality: Excellent Patient Consent: Informed, written consent was obtained for the procedure Exam Location: A MASON was performed in the [facility] without complications Anesthesia Pharyngeal anesthesia with viscous Lidocaine Conclusions Left Ventricle: The left ventricle is normal size. Global left ventricular systolic function is severely reduced. EF range is estimated at 25 % -30 %. Left ventricular wall thickness is normal. Diffuse global hypokinesis. Right Ventricle: The right ventricle appears normal in size. Normal right ventricular systolic function. Left Atrium: The left a trium is severely enlarged. Left Atrium Appendage: The left atrial appendage is monolobular. Normalleft atrial appendage, no thrombus seen. ROBB measutments [...] 50 micrograms Valvular Assessment LVOT 0.7 - 1.1m/sec Aortic Valve 1.0 - 1.7 m/sec Mitral Valve 0.6 - 1.3 m/sec Tricuspid Valve 0.3 - 0.7 m/sec Pulm onic Valve 0.6 - 0.9 m/sec Regurgitation Mod [...] atrium is severely enlarged. Left Atrium Appendage: Theleft atrial appendage is normal. The left atrial [...] is a minimal pericardial effusion. The Attending Ph ysician was present and personally reviewed the examination with the fellow Procedure Staff ReadingGroup: [facility] Referring Physician: RUDY KING Property Consultant: DORIAN Walker Ordering Physician: Hay William MD No nuclear medicine results found for the past 12 months Relevant Imaging Results Transthoracic echo (TTE) limited 1 1 [facility] Heart Station [address] [place] [address] [phone] (fax) Echocardiogram-[facility] Name: KRISTY DOHERTY Study Date: 04/20/2025 01:28 PM B/P: 83 mmHg/58 mmHg HR: 96 bpm Date of : 1955 Location: [facility] Height: 68 in. Age: 69 year(s) Patient Room: 3183 Weight: 179 lb. Gender: Male Patient Status: InPt BSA: 1.95 m2 Indication: Limited; evaluate pericardial effusion, S/P 35 mm Watchman FLX, H/O EF 25 - 30 %, Pacemaker, Cardiomyopathy Examination: Limited Echo/Limited Doppler, Color flow imaging Image Quality: Good Patient Consent: Procedure explained to patient Conclusions Left Ventricle: Global left ventricular systolic function is severely reduced. The EF is 30 % visually. The septum is abnormal in its motion. Right Ventricle: Right ventricular systolic function appears normal. A pacemaker wire is seen in the right ventricle. Doppler studies suggest normal right sided pressures. Pericardium: No pericardial effusion. Measurements Left Ventricle Label Value Normal Value LVEF visual 30 % Tricuspid Valve Label Value Normal Value RA Pressure 3 mmHg RVSP 24 mmHg TR Vmax 2.29 m/s Great Vessels Label Value Normal Value IVC 1.1 cm (1.2cm - 2.3cm) Valvular Assessment LVOT 0.7 - 1.1 m/sec Aortic Valve 1.0 - 1.7 m/sec Mitral Valve 0.6 - 1.3 m/sec Tricuspid Valve 0.3 - 0.7 m/sec Pulmonic Valve 0.6 - 0.9 m/sec Regurgitation Trivial Trivial Trivial Findings Left Ventricle: Global left ventricular systolic function is severely reduced. The EF is 30 % visually. The septum is abnormal in its motion. All scored left ventricular wall segments are hypokinetic. Right Ventricle: Right ventricular systolic function appears normal. A pacemaker wire is seen in the right ventricle. Doppler studies suggest normal right sided pressures. Mitral Valve: The mitral valve is normal in mobility and thickness. Trivial mitral regurgitation. Aortic Valve: Mildly sclerosed aortic valve cusps. Trivial aortic valve regurgitation. Tricuspid Valve: Normal tricuspid valve. Trivial tricuspid regurgitation. Great Vessels: IVC: The IVC is normal in size. There is inspiratory collapse of the IVC. Pericardium: No pericardial effusion. Procedure Staff Reading Group: [facility] Referring Physician: RUDY KING Property Consultant: June Brumfield, DEAN, RVT, RN, BSN Ordering Physician: VENU SAMANIEGO Wall Motion Scores -1 - hyperkinesia, 0 - not evaluated, 1 - normal, 2 - hypokinesia, 3 - akinesia, 4 - dyskinesia ECG 12 lead Sinus tachycardia with occasional Premature ventricular complexes Low voltage QRS Incomplete left bundle branch block T wave abnormality, consider lateral ischemia Abnormal ECG When compared with ECG of 19-APR-2025 12:03, Premature ventricular complexes are now Present Minimal criteria for Anteroseptal infarct are no longer Present Confirmed by Bobo Raymond (80) on 04/20/2025 7:43:00 AM Assessment: Circumferential moderate pericardial effusion s/p RHC, LHC and pericardiocentesis 04/19/2025- low concerns of cardiac tamponade Low suspicion for cardiac tamponade: No evidence of equalization of diastolic pressures on RHC and LHC RVEDP exceed pericardial pressure, making tamponade physiology less likely. Pericardial fluid analysis Serosanguinous in appearance, RBCs 245K Etiology Remains unclear. Infectious, inflammatory, post procedural causes remain possible Acute pericarditis cannot be ruled out this time Hypotension Right olecranon bursitis Paroxysmal atrial fibrillation s/p Watchman procedure 02/06/2025, on dual antiplatelet Chronic heart failure with improved ejection fraction status post ICD Essential hypertension Dyslipidemia Plan: Hypotension less likely to be secondary from tamponade etiology as no significant improvement with blood pressure noticed following pericardiocentesis and drain placement. Minimal drain output. Echo 04/20 showed no pericardial effusion, with no additional drainage from pericardial drain. Therefore pericardial drain was removed on 04/20. Repeat echocardiogram 04/23 to evaluate for any pericardial fluid reaccumulation. CRP significantly elevated, we recommend obtaining septic/infectious workup to determine other likely etiology for hypotension IV cefazolin started per primary Will continue colchicine 0.6 mg bid daily for now Patient's was concern about his right olecranon bursitis, Will defer it to primary team GDMT medications as tolerated by blood pressure. Continue to monitor electrolytes. Maintain potassium > 4 magnesium > 2. Cardiology will continue to follow. Please call with any questions. Mode Franco MD PGY-2 Internal Medicine Resident / [facility] Cosigned by Fani Denney MD at 04/21/2025 11:42 PM EDT Associated attestation - Fani Denney MD - 04/21/2025 11:42 PM EDT By using the attestations below, the signing clinician agrees that I have read and verify that thedocumentation has been personally reviewed by me and ensure that the documentation accurately reflects the encounter. GC: I personally saw this patient on the day of the encounter, performed the gonzáles portion(s) of the service and participated in the management and confirm the resident's/ fellow's Dr Franco documentation. Please note there may be an additional personal documentation from me. Fani Denney MD, FACC * Osito Kline MD - 04/21/2025 8:20 AM EDT Images from the original note were not included. Hospital Medicine Daily Progress Note - 04/21/2025 8:20 AM; Room: [address] [place] [address] Admission: 04/19/2025 10:46 AM; Length of stay: 2 days THE HOSPITALIST TEAM PREFERS TO USE [employer] CHAT FOR NON-URGENT COMMUNICATION 7AM- 7PM. IF I DO NOT RESPOND WITHIN 20 MINUTES OR URGENT MATTERS, PLEASE CALL THROUGH THE CLINICAL LAB SPECIALIST. FROM 7PM-7AM, PLEASE PAGE [phone](COVR). Code Status: Full Code Barriers to Discharge: Repeat ECHO on Wednesday Expected Discharge Date: 04/23 Discharge Destination: home Overview Patient is seen for evaluation and management of pericardial effusion, concern for tamponade, hypotension. Subjective Patient was seen and examined this morning. No events overnight. Blood pressure improved. Denies chest pain, difficulty breathing, fever, chills. Physical Exam Visit Vitals BP 92/68 (BP Location: Right arm) Pulse 93 Temp 36.5 ??C (97.7 ??F) (Temporal) Resp 24 Intake/Output Summary (Last 24 hours) at 04/21/2025 0820 Last data filed at 04/21/2025 0501 Gross per 24 hour Intake 2940 ml Output 200 ml Net 2740 ml Physical Exam Cardiovascular: Rate and Rhythm: Normal rate and regular rhythm. Pulmonary: Effort: Pulmonary effort is normal. Breath sounds: Normal breath sounds. Abdominal: General: Abdomen is flat. Palpations: Abdomen is soft. Neurological: General: No focal deficit present. Mental Status: He is alert and oriented to person, place, and time. Estimated body mass index is 27.67 kg/m?? as calculated from the following: Height as of this encounter: 1.727 m (5' 8 ). Weight as of this encounter: 82.6 kg (182 lb). Assessment and Plan Assessment & Plan Chest pain Pericardial effusion - Echo showed early tamponade. Patient was taken to lab instructor for Pericardiocentesis. Right heart cath was not suggestive for tamponade. 300 ml serosanguinous fluid and pigtail was placed. - Monitor BP. - Continue colchicine per Cardiology. - Follow up blood and fluid cx. - Repeat echo on Monday 04/23. Cardiomyopathy (CMS/HCC) Heart failure with reduced ejection fraction (CMS/HCC) ICD (implantable cardioverter-defibrillator) in place - Nonischemic cardiomyopathy - Echo this admission showed EF 60%. - Hold Farxiga, Toprol, Entresto, spironolactone due to hypotension. Atrial fibrillation (CMS/HCC) - Status post Watchman. - Continue aspirin and Plavix. Uncomplicated asthma - Restarted patients albuterol and switched from his Advair to our equivalent. Primary hypertension Hypotension due to hypovolemia - Hold Toprol, Entresto, spironolactone due to hypotension. 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 - Continue aspirin, Plavix, Lipitor. - Hold Toprol due to hypotension. Nutrition Screen: Malnutrition Attestation: No dietitian assessment is available at this time. VTE Prophylaxis: Lovenox Scheduled Meds allopurinol, 300 mg, oral, Daily aspirin, 81 mg, oral, Daily with breakfast atorvastatin, 40 mg, oral, Nightly ceFAZolin, 2 g, intravenous, q8h clopidogrel, 75 mg, oral, Daily colchicine, 0.6 mg, oral, BID dapagliflozin propanediol, 10 mg, oral, Once Daily enoxaparin, 40 mg, subcutaneous, Daily [Held by provider] metoprolol succinate XL, 50 mg, oral, Once Daily mometasone-formoterol, 2 puff, inhalation, BID [Held by provider] spironolactone, 25 mg, oral, Daily Pertinent Investigations Hematology: Results from last 7 days Lab Units 04/20/25 0515 04/19/25 1444 04/19/25 1214 CRP mg/L -- 145.7* -- WBC AUTO 10*3/uL 7.50 -- 10.71* HEMOGLOBIN g/dL 12.1* -- 13.0 HEMATOCRIT % 34.0* -- 36.8* MCV fL 90.7 -- 91.5 PLATELETS AUTO 10*3/uL 160 -- 185 Chemistry: Results from last 7 days Lab Units 04/20/25 0515 04/19/25 1214 SODIUM mmol/L 127* 126* POTASSIUM mmol/L 3.9 5.0 CHLORIDE mmol/L 93* 91* CO2 mmol/L 26 28 BUN mg/dL 16 17 CREATININE mg/dL 0.94 0.98 GLUCOSE mg/dL 127* 109* CALCIUM mg/dL 8.8 9.5 Results from last 7 days Lab Units 04/19/25 1214 AST U/L 22 ALT U/L 27 ALK PHOS U/L 51 BILIRUBIN TOTAL mg/dL 0.7 Historical Values: (Includes values prior to this admission) Lab Results Component Value Date CORTISOL 11.2 04/20/2025 No results found for: [id number] , IRON , TIBC , C3 , C4 , COLLIN , CANCA , ASO , PSA , CEA , CA125 , CA199 , AFP , CA153 Imaging Transthoracic echo (TTE) limited 1 1 [facility] Heart Station [address] [place], [place] [id number] (fax) Echocardiogram-[facility] Name: KRISTY DOHERTY Study Date: 04/20/2025 01:28 PM B/P: 83 mmHg/58 mmHg HR: 96 bpm Date of : 1955 Location: [facility] Height: 68 in. Age: 69 year(s) Patient Room: 3183 Weight: 179 lb. Gender: Male Patient Status: InPt BSA: 1.95 m2 Indication: Limited; evaluate pericardial effusion, S/P 35 mm Watchman FLX, H/O EF 25 - 30 %, Pacemaker, Cardiomyopathy Examination: Limited Echo/Limited Doppler, Color flow imaging Image Quality: Good Patient Consent: Procedure explained to patient Conclusions Left Ventricle: Global left ventricular systolic function is severely reduced. The EF is 30 % visually. The septum is abnormal in its motion. Right Ventricle: Right ventricular systolic function appears normal. A pacemaker wire is seen in the right ventricle. Doppler studies suggest normal right sided pressures. Pericardium: No pericardial effusion. Measurements Left Ventricle Label Value Normal Value LVEF visual 30 % Tricuspid Valve Label Value Normal Value RA Pressure 3 mmHg RVSP 24 mmHg TR Vmax 2.29 m/s Great Vessels Label Value Normal Value IVC 1.1 cm (1.2cm - 2.3cm) Valvular Assessment LVOT 0.7 - 1.1 m/sec Aortic Valve 1.0 - 1.7 m/sec Mitral Valve 0.6 - 1.3 m/sec Tricuspid Valve 0.3 - 0.7 m/sec Pulmonic Valve 0.6 - 0.9 m/sec Regurgitation Trivial Trivial Trivial Findings Left Ventricle: Global left ventricular systolic function is severely reduced. The EF is 30 % visually. The septum is abnormal in its motion. All scored left ventricular wall segments are hypokinetic. Right Ventricle: Right ventricular systolic function appears normal. A pacemaker wire is seen in the right ventricle. Doppler studies suggest normal right sided pressures. Mitral Valve: The mitral valve is normal in mobility and thickness. Trivial mitral regurgitation. Aortic Valve: Mildly sclerosed aortic valve cusps. Trivial aortic valve regurgitation. Tricuspid Valve: Normal tricuspid valve. Trivial tricuspid regurgitation. Great Vessels: IVC: The IVC is normal in size. There is inspiratory collapse of the IVC. Pericardium: No pericardial effusion. Procedure Staff Reading Group: [facility] Referring Physician: RUDY KING Property Consultant: June Brumfield RDCS, RVT, RN, BSN Ordering Physician: VENU SAMANIEGO Wall Motion Scores -1 - hyperkinesia, 0 - not evaluated, 1 - normal, 2 - hypokinesia, 3 - akinesia, 4 - dyskinesia ECG 12 lead Sinus tachycardia with occasional Premature ventricular complexes Low voltage QRS Incomplete left bundle branch block T wave abnormality, consider lateral ischemia Abnormal ECG When compared with ECG of 19-APR-2025 12:03, Premature ventricular complexes are now Present Minimal criteria for Anteroseptal infarct are no longer Present Confirmed by Bobo Raymond ([id number]) on 04/20/2025 7:43:00 AM Discharge Planning Expected Discharge Disposition: Home or Self Care () (pending clinical course) Signed Osito Kline MD Hospital Medicine 04/21/2025 8:20 AM * Alba Mena MD - 04/20/2025 2:38 PM EDT Images from the original note were not included. Cardiology Progress Note Subjective Patient was seen and examined at bedside. Patient was lying comfortably in bed. Continues to be hypotensive s/p gentle fluids. Patient denies any chest pain, shortness of breath, PND, dizziness/lightheadedness. Cardiac drain in place with minimal serosanguinous fluid (around 50-60 ml drain output). present at bedside demonstrated concern related to his right elbow, he was supposed to follow up with orthopedic outpatient. She is requesting if they can seem in while he is admitted in the hospital. Objective Objective: Patient Vitals for the past 24 hrs: BP Temp Temp src Pulse Resp SpO2 Weight 04/20/25 1200 83/58 -- -- 88 17 94 % -- 04/20/25 1135 90/56 -- Temporal 93 18 96 % -- 04/20/25 0940 80/58 -- -- 91 14 98 % -- 04/20/25 0805 76/66 36.4 ??C (97.5 ??F) Temporal 96 23 97 % -- 04/20/25 0421 -- -- -- -- -- -- 81.6 kg (179 lb 12.8 oz) 04/20/25 0403 96/66 36.2 ??C (97.1 ??F) Temporal 91 18 95 % -- 04/20/25 0002 101/69 36.3 ??C (97.4 ??F) Temporal 107 18 98 % -- 04/20/25 0000 78/52 -- -- -- -- -- -- 04/19/25 2200 111/70 -- -- 106 21 91 % -- 04/19/25 2105 94/68 -- -- 99 18 93 % -- 04/19/25 2000 90/60 36.4 ??C (97.5 ??F) Temporal 104 16 95 % -- 04/19/25 1900 92/63 -- -- 107 -- 91 % -- 04/19/25 1800 94/52 -- -- (!) 111 -- 93 % -- 04/19/25 1730 91/ -- -- 104 -- 94 % -- 04/19/25 1700 93/63 -- -- 107 -- 95 % -- 04/19/25 1645 95/67 -- -- 103 -- 94 % -- 04/19/25 1635 104/71 -- -- 94 -- 97 % -- 04/19/25 1600 92/68 36.6 ??C (97.9 ??F) Temporal 91 18 97 % -- 04/19/25 1545 102/74 -- -- 96 22 97 % -- 04/19/25 1524 -- -- -- -- -- 98 % -- 04/19/25 1523 99/69 -- -- 96 18 95 % -- Physical Examination: Physical Exam Physical Examination: Vitals: 04/20/25 1200 BP: 83/58 Pulse: 88 Resp: 17 Temp: SpO2: 94% Constitutional: Vitals reviewed,comfortable breathing HEENT: Normocephalic, Atraumatic, Moist oral mucosa Eyes: Clear conjunctiva, Pupils reactive to light Neck: Supple, No thyromegaly CV: Normal Rate and Rhythm, No murmur, No pedal edema, Pericardial drain in place (50-60 ml ml output since 24 hours) Chest/Pulm: Normal respiratory effort, Lungs clear to auscultation Abdomen: Soft, No tenderness, No organomegaly Musculoskeletal: Swelling around right elbow, non-tender Lymph Nodes: no cervical adenopathy noted Skin: Warm, No rash Neuro: Alert, can move all four extremities Relevant Lab Results Encounter Date: 04/19/25 ECG 12 lead Result Value Ventricular Rate 112 Atrial Rate 112 ME Interval 186 QRS DURATION 114 QT Interval 342 QTC CALCULATION(BAZETT) 466 P Welch 50 R-Welch 19 T Wave Welch 96 Impression Sinus tachycardia with occasional Premature ventricular complexes Low voltage QRS Incomplete left bundle branch block T wave abnormality, consider lateral ischemia Abnormal ECG When compared with ECG of 19-APR-2025 12:03, Premature ventricular complexes are now Present Minimal criteria for Anteroseptal infarct are no longer Present Confirmed by Bobo Raymond ([id number]) on 04/20/2025 7:43:00 AM Lab Results Component Value Date TROPONINI 0.04 07/02/2022 Transthoracic echo (TTE) limited Result Date: 04/19/2025 1 1 [place] [facility] V[facility] Heart Station [address] [place] [address]. [place] [address] [phone] (fax) Echocardiogram-[facility] Name: KRISTY DOHERTY Study Date: 04/19/2025 02:13 PM B/P: / HR: Date of : 1955 Location: [facility] Height: 68 in. Age: 69 year(s) Patient Room: [facility] Weight: 182 lb. Gender: Male Patient Status: InPt BSA: 1.96 m2 Indication: pericardialeffusion, h/o 35mm Watchman FLX Examination: Limited Echo Image Quality: Fair Findings Pericardium: Moderate pericardial effusion baseline. Post pericardiocentesis there is minimal pericardial effusion. Procedure Staff Reading Group: [facility] Referring Physician: RUDY KING Property Consultant: SAMI Starr, RDCS Ordering Physician: VENU SAMANIEGO Complete Echo (TTE) w/wo Imaging Agent, Strain, 3D, Bubble Study Result Date: 04/19/2025 1 1 [place] [facility] Vascular [facility] Heart Station [address] [facility] [address] [phone] (fax) Echocardiogram-[facility] Name: KRISTY DOHERTY Study Date: 04/19/2025 12:46 PM B/P: 97 mmHg/71 mmHg HR: Date of : 1955 Location: [facility] Height: 68 in. Age: 69 year(s) Patient Room: 3183 Weight: 182 lb. Gender: Male Patient Status: InPt BSA: 1.96 m2 Indication: Chest Pain, s/p 35mm Watchman FLX Examination: Echocardiogram (Complete) ImageQuality: Fair Patient Consent: Procedure explained to patient Conclusions Left Ventricle: The left ventricle is normal size. Global left ventricular systolic function is normal. The EF is 60 % visually. Left ventricular wall thickness is normal. No regional wall motion abnormality. Right Ventricle:The right ventricle appears normal in size. Right ventricular systolic function appears normal. Doppler studies suggest normal right sided pressures. Left Atrium: Watchman device visualized . The left atrium appears normal in size. Aortic Valve: Mild aortic valve regurgitation. Tricuspid Valve: Mild tricuspid regurgitation. Pericardium: There is a moderate circumfrential pericardial effusion. There is also, significant mitral inflow variations consistent with early tamponade physiology. Measurements Left Ventricle Label Value Normal Value LVOT VTI 11.1 cm (18cm - 22cm) LVOT PGmax 3 mmHg LVEF visual 60 % LVOT PGmean 1 mmHg Right Ventricle Label Value Normal Value TAPSE 0.97 cm Aortic Valve Label Value Normal Value AV DVI 0.5 AV VTI 23.1 cm Mitral Valve Label Value Normal Value MV E Vmax 0.54 m/s MV A Vmax 0.79 m/s MV E/A 0.68 MV E/E' lateral 7.6 MV E' lateral 0.07 m/s Tricuspid Valve Label Value Normal Value RA Pressure 3 mmHg RVSP 30 mmHg TR Vmax 2.59 m/s Valvular Assessment LVOT 0.7 - 1.1 m/sec Aortic Valve 1.0 - 1.7 m/sec Mitral Valve 0.6 - 1.3 m/sec Tricuspid Valve 0.3 - 0.7 m/sec Pulmonic Valve 0.6 - 0.9 m/sec Regurgitation Mild No Mild No Max Velocity 0.81 m/sec 1.62 m/s 0.54m/sec 1.02 m/s Max Gradient 10.00 mmHg 4.00 mmHg Mean Gradient 5.00 mmHg Findings Left Ventricle: The left ventricle is normal size. Global left ventricular systolic function is normal. The EF is 60 % visually. Left ventricular wall thickness is normal. No regional wall motion abnormality. Right Ventricle: The right ventricle appears normal in size. Right ventricular systolic function appears normal. Doppler studies suggest normal right sided pressures. Left Atrium: Watchman device visualized .The left atrium appears normal in size. Right Atrium: The right atrium appears normal in size. Mitral Valve: The mitral valve is normal in mobility and thickness. No mitral regurgitation. Aortic Valve: Focal aortic cusp thickening is noted. Mild aortic valve regurgitation. Tricuspid Valve: Normal tricuspid valve. Mild tricuspid regurgitation. Pulmonic Valve: Normal pulmonary valve. No pulmonary regurgitation. Aorta: The aortic root exhibits normal size. Great Vessels: IVC: Normal size and course of the IVC. Pericardium: There is a moderate circumfrential pericardial effusion. There is also, significant mitral inflow variations consistent with early tamponade physiology. Procedure Staff Reading Group: [facility] Property Consultant: Bryanna Cazares RDCS Ordering Physician: HAKAN Canchola signed by MD Mitesh Vernon on 04/19/2025 at 01:44 PM Limited Transthoracic Echo (TTE) w/wo Contrast, Color Flow, Imaging Agent, Strain, 3D, Bubble Study Result Date: 02/07/2025 1 1 [place] [facility] Heart Station [address] [facility] [address] [phone] (fax) Echocardiogram-[facility] Name: KRISTY DOHERTY Study Date: 02/07/2025 08:02 AM B/P: 118 mmHg/85 mmHg HR: 63 bpm Date of : 1955 Location: [facility] Height: 68 in. Age: 69 year(s) Patient Room: 3176 Weight: 186 lb. Gender: Male Patient Status: InPt BSA: 1.98 m2 Indication: Atrial Fibrillation, Pacemaker, s/p 35mm Watchman FLX Examination: Limited Echo, Color flow imaging, Lumason Contrast Image Quality: Fair Patient Consent: Procedure explained to patient Exam Details Contrast: I.V. dose of Lumason Conclusions Left Ventricle: The left ventricle is [...] Aortic Valve: Mild aortic valve regurgitation. Overall C onclusions: Due to suboptimal imaging Lumason contrast was administered for opacification and better delineation of endocardial borders. Well seated 35mm Watchman FLX PRO. Measurements Left VentricleLabel Value Normal Value LVDd, 2D 5.86 cm (4.2cm - 5.9cm) LVDs, 2D 5.21 cm (2.1cm - 4cm) IVSd, 2D 0.91 cm (0.6cm - 1.1cm) LVPWd, 2D 1.06 cm (0.6cm - 1cm) LV Mass, 2D ASE 232.58 g LV Mass Index, 2D ASE 117.5 g/m?? (50g/m?? - 102.4g/m??) RWT, MM 0.36 (0 - 0.42) LVSVI, 2D 20.7 ml/m2 Aorta Label Value Normal Value AoRoot, 2D 3.4 cm (1.4cm - 3.8cm) Valvular Assessment LVOT 0.7 - 1.1 m/sec Aortic Valve1.0 - 1.7 m/sec Mitral Valve 0.6 - 1.3 m/sec Tricuspid Valve 0.3 - 0.7 m/sec Pulmonic Valve 0.6 - 0.9 m/sec Regurgitation Mild trivMil Findings Left Ventricle: The left ventricle is normal size. Global left ventricular systolic function is severely reduced. EF range is estimated at 25 % -30 %. Leftventricular wall thickness is increased. Diffuse global hypokinesis. Right Ventricle: The right ventricle is normal in size. Normal right ventricular systolic function. A pacemaker wire is seen in the right atrium and right ventricle. Left Atrium: The left atrium is normal in size. Right Atrium: The right atrium is normal in size. Mitral Valve: There is nonspecific thickening of the mitral valve leaflet. Trvial to mild mitral regurgitation. Aortic Valve: Focal aortic cusp thickening is noted. Mild aortic valve regurgitation. Tricuspid Valve: Normal tricuspid valve. Pulmonic Valve: Normal pulmonary valve. Aorta: The aortic root exhibits normal size. Great Vessels: IVC: The IVC is normal in size. Pericardium: No pericardial effusion. Procedure Staff Reading Group: [facility] Referring Physician: RUDY KING Property Consultant: SAMI Starr, RDCS Ordering Physician: CHUCK FUNEZ Transesophageal echo (MASON) Result Date: 12/01/2024 1 [place] [facility] Heart Station [address] [place] [address] [phone] (fax) Transesophageal Echocardiogram-[facility] Name: KRISTY DOHERTY Study Date: 12/01/2024 12:00 PM B/P: 134 mmHg/87 mmHg HR: 80 bpm Date of : 1955 Location: [facility] Height: 68 in. Age: 69 year(s) Patient Room: Weight: 194 lb. Gender: Male PatientStatus: OutPt BSA: 2.02 m2 Indication: Atrial Fibrillation, Pre-Watchman Examination: MASON, Color flow imaging Image Quality: Excellent Patient Consent: Informed, written consent was obtained for the procedure Exam Location: A MASON was performed in the [facility] without complications Anesthesia Pharyngeal anesthesia with viscous Lidocaine Conclusions Left Ventricle: The left ventricle is normal size. Global left ventricular systolic function is severely reduced. EF range is estimated at 25 % -30 %. Left ventricular wall thickness is normal. Diffuse global hypokinesis. Right Ventricle: The right ventricle appears normal in size. Normal right ventricular systolic function. Left Atrium: The left a trium is severely enlarged. Left Atrium Appendage: The left atrial appendage is monolobular. Normalleft atrial appendage, no thrombus seen. ROBB measutments [...] 50 micrograms Valvular Assessment LVOT 0.7 - 1.1m/sec Aortic Valve 1.0 - 1.7 m/sec Mitral Valve 0.6 - 1.3 m/sec Tricuspid Valve 0.3 - 0.7 m/sec Pulm onic Valve 0.6 - 0.9 m/sec Regurgitation Mod [...] atrium is severely enlarged. Left Atrium Appendage: Theleft atrial appendage is normal. The left atrial [...] is a minimal pericardial effusion. The Attending Ph ysician was present and personally reviewed the examination with the fellow Procedure Staff ReadingGroup: [facility] Referring Physician: RUDY KING Property Consultant: DORIAN Walker Ordering Physician: Hay William MD No nuclear medicine results found for the past 12 months Relevant Imaging Results ECG 12 lead Sinus tachycardia with occasional Premature ventricular complexes Low voltage QRS Incomplete left bundle branch block T wave abnormality, consider lateral ischemia Abnormal ECG When compared with ECG of 19-APR-2025 12:03, Premature ventricular complexes are now Present Minimal criteria for Anteroseptal infarct are no longer Present Confirmed by Bobo Raymond ([id number]) on 04/20/2025 7:43:00 AM Assessment: Circumferential moderate pericardial effusion s/p RHC, LHC and pericardiocentesis 04/19/2025- low concerns of cardiac tamponade Low suspicion for cardiac tamponade: No evidence of equalization of diastolic pressures on RHC and LHC RVEDP exceed pericardial pressure, making tamponade physiology less likely. Pericardial fluid analysis Serosanguinous in appearance raising concerns for infectious/inflammatory etiology Not consistent with hemorrhagic fluid, thereby reducing concern for procedural complication from recent Watchman device placement. Etiology Remains unclear. Infectious or inflammatory causes remain possible Acute pericarditis cannot be ruled out this time Hypotension Right olecranon bursitis Paroxysmal atrial fibrillation s/p Watchman procedure 02/06/2025, on dual antiplatelet Chronic heart failure with improved ejection fraction status post ICD Essential hypertension Dyslipidemia Plan: Hypotension less likely to be secondary from tamponade etiology as no significant improvement with blood pressure noticed s/p pericardiocentesis and drain placement. Minimal drain output. Will repeatEcho to assess for pericardial effusion/fluid and decide for drain removal accordingly. Will recommend obtaining septic/infectious workup to determine other likely etiology for hypotension Will continue colchicine 0.6 mg bid daily for now Patient's was concern about his right olecranon bursitis, recommend orthopedic consult. Will defer it to primary team GDMT medications as tolerated by blood pressure. Continue to monitor electrolytes. Maintain potassium more than 4 magnesium more than 2. Cardiology will continue to follow. Please call with any questions. Alba Mena MD PGY-3 Internal Medicine Resident [facility] Cosigned by Hay William MD at 04/20/2025 8:23 PM EDT Associated attestation - Hay William MD - 04/20/2025 8:23 PM EDT By using the attestations below, I agree that I have read and verify that the documentation has been personally reviewed by me and ensure that the documentation accurately reflects the encounter. GC: I personally saw this patient on the day of the encounter, performed the gonzáles portions of the service and participated in the management and treatment plan of the patient. I reviewed and confirm the documentation by the Resident Dr Alba Mena. Please note there may be an additional personal documentation from me. His echocardiogram today showed no pericardial effusion. There was no additional drainage from the pericardial drain. I removed the pericardial drain. He is doing well. We will plan a follow-up echocardiogram in 2 days. He continues to have low blood pressure. The CRP is significantly elevated. The current presentation is suggestive of a systemic process with the pericarditis/pericardial effusion being one of the manifestations. He should be investigated for an underlying systemic process leading to the above as well as hypotension. Hay William MD * Benedict Pascual MD - 04/20/2025 12:06 PM EDT Images from the original note were not included. [facility] Medicine Daily Progress Note - 04/20/2025 12:06 PM; Room: [address] [place] [address] Admission: 04/19/2025 10:46 AM; Length of stay: 1 days THE HOSPITALIST TEAM PREFERS TO USE [employer] CHAT FOR NON-URGENT COMMUNICATION 7AM- 7PM. IF I DO NOT RESPOND WITHIN 20 MINUTES OR URGENT MATTERS, PLEASE CALL THROUGH THE CLINICAL LAB SPECIALIST. FROM 7PM-7AM, PLEASE PAGE [phone](COVR). Code Status: Full Code Barriers to Discharge: Still hypotension. Follow up repeated echo. Follow up cultures Expected Discharge Date: Discharge Destination: home Overview Patient is seen for evaluation and management of pericardial effusion, concern for tamponade, hypotension. Subjective Patient is still hypotensive but denies dizziness, CP, N/V. Physical Exam Visit Vitals BP 90/56 (BP Location: Right arm, Patient Position: Lying) Comment: notifed and aware Pulse 93 Temp 36.4 ??C (97.5 ??F) (Temporal) Resp 18 Intake/Output Summary (Last 24 hours) at 04/20/2025 1206 Last data filed at 04/20/2025 1130 Gross per 24 hour Intake 2447.39 ml Output 630 ml Net 1817.39 ml Physical Exam Cardiovascular: Rate and Rhythm: Normal rate and regular rhythm. Pulmonary: Effort: Pulmonary effort is normal. Breath sounds: Normal breath sounds. Abdominal: General: Abdomen is flat. Palpations: Abdomen is soft. Skin: Comments: Pigtail drain in place Neurological: General: No focal deficit present. Mental Status: He is alert and oriented to person, place, and time. Estimated body mass index is 27.34 kg/m?? as calculated from the following: Height as of this encounter: 1.727 m (5' 8 ). Weight as of this encounter: 81.6 kg (179 lb 12.8 oz). Assessment and Plan Assessment & Plan Chest pain Pericardial effusion - Echo showed early tamponade. Patient was taken to lab instructor for Pericardiocentesis. Right heart cath was not suggestive for tamponade. 300 ml serosanguinous fluid and pigtail was placed. - Monitor BP. - Continue colchicine per Cardiology. - Follow up blood and fluid cx. - Repeat echo today. Cardiomyopathy (CMS/HCC) Heart failure with reduced ejection fraction (CMS/HCC) ICD (implantable cardioverter-defibrillator) in place - Nonischemic cardiomyopathy with recovery. - Echo this admission showed EF 60%. - Hold Farxiga, Toprol, Entresto, spironolactone due to hypotension. Atrial fibrillation (CMS/HCC) - Status post Watchman. - Continue aspirin and Plavix. Hyponatremia - Follow up urine Na and osmol. - Improving. Uncomplicated asthma - Restarted patients albuterol and switched from his Advair to our equivalent. Primary hypertension Hypotension due to hypovolemia - Hold Toprol, Entresto, spironolactone due to hypotension. 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 - Continue aspirin, Plavix, Lipitor. - Hold Toprol due to hypotension. Nutrition Screen: Malnutrition Attestation: No dietitian assessment is available at this time. VTE Prophylaxis: Lovenox Scheduled Meds allopurinol, 300 mg, oral, Daily aspirin, 81 mg, oral, Daily with breakfast atorvastatin, 40 mg, oral, Nightly ceFAZolin, 2 g, intravenous, q8h clopidogrel, 75 mg, oral, Daily colchicine, 0.6 mg, oral, BID dapagliflozin propanediol, 10 mg, oral, Once Daily enoxaparin, 40 mg, subcutaneous, Daily [Held by provider] metoprolol succinate XL, 50 mg, oral, Once Daily mometasone-formoterol, 2 puff, inhalation, BID [Held by provider] spironolactone, 25 mg, oral, Daily Pertinent Investigations Hematology: Results from last 7 days Lab Units 04/20/25 0515 04/19/25 1444 04/19/25 1214 CRP mg/L -- 145.7* -- WBC AUTO 10*3/uL 7.50 -- 10.71* HEMOGLOBIN g/dL 12.1* -- 13.0 HEMATOCRIT % 34.0* -- 36.8* MCV fL 90.7 -- 91.5 PLATELETS AUTO 10*3/uL 160 -- 185 Chemistry: Results from last 7 days Lab Units 04/20/25 0515 04/19/25 1214 SODIUM mmol/L 127* 126* POTASSIUM mmol/L 3.9 5.0 CHLORIDE mmol/L 93* 91* CO2 mmol/L 26 28 BUN mg/dL 16 17 CREATININE mg/dL 0.94 0.98 GLUCOSE mg/dL 127* 109* CALCIUM mg/dL 8.8 9.5 Results from last 7 days Lab Units 04/19/25 1214 AST U/L 22 ALT U/L 27 ALK PHOS U/L 51 BILIRUBIN TOTAL mg/dL 0.7 Historical Values: (Includes values prior to this admission) No results found for: PREALBUMIN , TSH , T3FREE , FREET4 , CORTISOL , FEV1 , VZH5EWZ , DLCO , RVSP , HDL , LDL No results found for: [id number] , IRON , TIBC , C3 , C4 , COLLIN , CANCA , ASO , PSA , CEA , CA125 , CA199 , AFP , CA153 Imaging ECG 12 lead Sinus tachycardia with occasional Premature ventricular complexes Low voltage QRS Incomplete left bundle branch block T wave abnormality, consider lateral ischemia Abnormal ECG When compared with ECG of 19-APR-2025 12:03, Premature ventricular complexes are now Present Minimal criteria for Anteroseptal infarct are no longer Present Confirmed by Bobo Raymond ([id number]) on 04/20/2025 7:43:00 AM Discharge Planning Expected Discharge Disposition: Home or Self Care () (pending clinical course) Signed Benedict Pascual MD [facility] Medicine 04/20/2025 12:06 PM * Mansi Alexandreleyla, RD - 04/20/2025 9:51 AM EDT Adult Nutrition Assessment: Name: Kristy Doherty Date: 1955 Date of Visit: 04/20/25 Admission Dx: Chest pain [R07.9] Reason for assessment: high risk (po intake) Information obtained from: patient, family, medical record, and nurse - @ bedside Medical History[1] Current Medications: allopurinol, 300 mg, oral, Daily aspirin, 81 mg, oral, Daily with breakfast atorvastatin, 40 mg, oral, Nightly ceFAZolin, 2 g, intravenous, q8h clopidogrel, 75 mg, oral, Daily colchicine, 0.6 mg, oral, BID dapagliflozin propanediol, 10 mg, oral, Once Daily enoxaparin, 40 mg, subcutaneous, Daily [Held by provider] metoprolol succinate XL, 50 mg, oral, Once Daily mometasone-formoterol, 2 puff, inhalation, BID [Held by provider] spironolactone, 25 mg, oral, Daily Labs: 0 Lab Value Date/Time BUN 16 04/20/2025 0515 CREATININE 0.94 04/20/2025 0515 NA 127 (L) 04/20/2025 0515 K 3.9 04/20/2025 0515 MG 2.0 07/04/2022 0806 HGB 12.1 (L) 04/20/2025 0515 WBC 7.50 04/20/2025 0515 BNP 254 Allergies: Allergies[2] Nutrition Problems: Swallowing Assessment: pt denies swallowing difficulty Mouth: pt denies chewing difficulty Abdominal Assessment: Last BM MANAGER WORK, denies constipation Appetite: decreased @ baseline, no changes Cognition: A/O x4 Feeding Skills: Lives with , good access to food @ home Independently feeds self Skin Integrity: Intact Other Factors: TTE 04/19/25: EF 60% Pericardial effusion - L&R heart cath + pericardiocentesis Nutrition Data/Clinical Indicators of Nutrition Status: Height: 172.7 cm (5' 8 ) Weight: 81.6 kg (179 lb 12.8 oz) BMI (Calculated): 27.34 Wt Readings from Last 10 Encounters: 04/20/25 81.6 kg (179 lb 12.8 oz) 04/03/25 84.8 kg (187 lb) 02/26/25 85.7 kg (189 lb) 02/07/25 84.6 kg (186 lb 9.6 oz) 11/13/24 88 kg (194 lb) 07/03/24 88.9 kg (196 lb) 01/06/24 87.5 kg (193 lb) 06/29/23 86.2 kg (190 lb) 05/11/23 85.3 kg (188 lb) 02/19/23 83 kg (183 lb) IBW: 70 kg UBW: 180-185 lbs per pt Weight change: Pt denies wt changes. endorses noticing some loss over the past few months. Pt denies changes to intakes or new medical issues/outside stressors that may have attributed to loss. 1 month: loss of 3.2 kg / 3.8% / not significant 6 months: loss of 6.4 kg / 7.3% / not significant Nutrition Assessment: Pt and report following a regular diet at home. They have been conscientious of salt intake for the past few years due to both and pt health conditions. uses no added salt seasoning blends when cooking. They typically consume 1.5 meals/day. Most meals prepared @ home but they do eat out 1x/wk. L: pork chops, mashed potato, vegetable D: smaller meal (Wednesdays = night) Dietary Orders (From admission, onward) Start Ordered 04/19/25 1634 Special Kitchen Request Once Comments: Tuna salad sandwich 04/19/25 1634 04/19/25 1547 Regular Diet Diet effective now Question: Room Service? Answer: Yes 04/19/25 1540 Nutrition Risk: Low Nutrition Diagnosis: None at this time Malnutrition Assessment: Per Registered Dietitian assessment and evaluation, patient does not currently meet criteria OR there is not enough information to support the diagnosis of malnutrition per the clinical criteria set by the Academy of Nutrition and Dietetics (AND) and the [place] Society of Enteral and Parenteral Nutrition (ASPEN). Nutrition Education: Diet literature: Heart Healthy Grocery List Low Na diet: avoid added salt, limit eating out Daily wt monitoring Reviewed s/s of exacerbation Smaller, more frequent intakes to prevent unintentional wt loss Expected compliance/patient understanding: Good Teach back method: Verbalized understanding (Pt + ) Time spent: 15 minutes Treatment Plan: Diet: regular (no salt packets) Intakes with all meals Daily wt monitoring Replace/correct electrolytes prn Goals: Adequate po intakes (kcals and protein); >75% meals Understanding of nutrition education/adherence to diet recommendations No significant unintentional wt loss Nutrition-related labs (magnesium, phosphorus, BMP) wnl To reach the Clinical Dietitian, please utilize [email or web address] chat Wednesday-Wednesday from 8AM-4PM or call extension [phone]. For weekends (Wednesday-Wednesday) and hols, the Clinical Dietitian can be reached via pager ([phone]) from 9AM-3PM. The Clinical Nutrition Department is unable to respond to [email or web address] chat messages on Sundays and . [1] Past Medical History: Diagnosis Date Asthma 07/29/2012 CHF (congestive heart failure) (CMS/HCC) Coronary artery disease History of malignant neoplasm of prostate 07/03/2022 Hypertension 07/03/2022 [2] Allergies Allergen Reactions Octacosanol Unknown Other Reaction(s): Unknown documented in this encounter H&P Notes * Karsten Gage MD - 04/24/2025 4:38 PM EDT Images from the original note were not included. Adult ICU History & Physical Patient - Kristy Doherty Age - 69 y.[facility] 1955 [id number] Date of Admission - 04/19/2025 10:46 AM Chief Complaint Chest pain History of Present Illness Kristy Doherty is an 69 y.o. male who came from [place] with chest pain with radiation to neck andback. Past medical history of heart failure with reduced ejection fraction, hypertension, coronary artery disease, cardiomyopathy nonischemic (AICD placed), hyperlipidemia, atrial fibrillation statuspost Watchman , asthma. Patient presents from [place] with chest pain radiating to the neck and back. He states that chest pain started last night was a constant sharp pain all over his chest. He states that the pain radiated to his neck and back rated pain a 5 out of 10. Patient stated when he was on his right side pain in his neck improved. At outside hospital patient was found to have small pericardial effusion on CT as well as potential atelectasis versus pneumonia. He also had a sodium of 123. His troponins were downtrending and from 11.5-10.5. Patient was also hypotensive at outside hospital which he states he has been hypotensive now for the past 2 weeks. At bedside patientstates that chest pain has improved and is now a 2 out of 10. He still states that chest pain radiates up to his neck. Along with chest pain he complains of fever, sweats, chest pain, shortness of breath, fatigue, weakness. Patient denies chills, palpitations, leg swelling, wheezing abdominal pain,nausea, vomiting, diarrhea, lightheadedness, dizziness, headache, visual changes. Patient was then taken to the catheterization lab for emergent pericardiocentesis due to echo showing signs of cardiac tamponade. A right heart cath, left heart cath and pericardiocentesis were performed. They able to successfully drain the pericardial fluid with significant proven in blood pressure following pericardiocentesis and drain placement. There was minimal drain output and repeat echo showed no pericardial effusions. The patient was being managed by the hospitalist service and plans for discharge were in place, however the patient had recurrence of his pericardial effusion along with hypotension. Repeat echoes showed worsening ejection fraction and severely reduced RV systolic function with no inspiratory collapse of the IVC. Patient was taken back to the catheterization lab for a right heart cath which demonstrated elevated wedge pressure and RV pressures. A Assawoman-Shannan catheter was placed for further monitoring and the patient was transferred to the medical ICU. PMH: Patient has a past medical history of Asthma (07/29/2012), CHF (congestive heart failure) ([facility]), Coronary artery disease, History of malignant neoplasm of prostate (07/03/2022), and Hypertension (07/03/2022). PSH: Patient has a past surgical history that includes Prostatectomy; Cardiac catheterization; Sinus surgery; and Band hemorrhoidectomy. SH: Patient reports that he has quit smoking. His smoking use included cigarettes. He has never used smokeless tobacco. He reports current alcohol use of about 14.0 standard drinks of alcohol per week. He reports that he does not use drugs. Alc/Tobacco/Drug: Patient reports current alcohol use of about 14.0 standard drinks of alcohol per week. reports that he has quit smoking. His smoking use included cigarettes. He has never used smokeless tobacco. reports no history of drug use. Medications: Patient Current Medications[1] Allergies: Patient Octacosanol Family history: Patient family history includes Emphysema in his father; Stroke in his mother; pacemaker in his mother. ROS, Vitals and Physical Exam Ht Readings from Last 1 Encounters: 04/19/25 1.727 m (5' 8 ) Wt Readings from Last 1 Encounters: 04/24/25 81.9 kg (180 lb 9.6 oz) height is 1.727 m (5' 8 ) and weight is 81.9 kg (180 lb 9.6 oz). His temporal temperature is 36.1 ??C (97 ??F). His blood pressure is 91/76 and his pulse is 88. His respiration is 20 and oxygen saturation is 96%. Intake/Output Summary (Last 24 hours) at 04/24/2025 1638 Last data filed at 04/24/2025 1543 Gross per 24 hour Intake 447.5 ml Output 10 ml Net 437.5 ml Review of Systems Constitutional: Positive for fatigue. Negative for chills, diaphoresis and fever. Cardiovascular: Positive for leg swelling. Negative for chest pain and palpitations. Gastrointestinal: Negative for diarrhea, nausea and vomiting. Skin: Negative for rash and wound. Neurological: Positive for light-headedness. Negative for dizziness, syncope and headaches. Temp: [36 ??C (96.8 ??F)-36.8 ??C (98.2 ??F)] 36.1 ??C (97 ??F) Heart Rate: [88-112] 88 Resp: [18-22] 20 BP: (77-98)/(64-77) 91/76 Physical Exam Constitutional: Appearance: He is obese. He is not ill-appearing. HENT: Head: Normocephalic and atraumatic. Eyes: Extraocular Movements: Extraocular movements intact. Conjunctiva/sclera: Conjunctivae normal. Pupils: Pupils are equal, round, and reactive to light. Cardiovascular: Rate and Rhythm: Normal rate. Rhythm irregular. Pulmonary: Breath sounds: Rales present. Abdominal: General: Abdomen is flat. Palpations: Abdomen is soft. Neurological: General: No focal deficit present. Mental Status: He is alert and oriented to person, place, and time. Labs/Imaging Hematology: Results from last 7 days Lab Units 04/24/25 0407 04/23/25 0502 04/20/25 0515 04/19/25 1444 CRP mg/L -- 39.4* -- 145.7* WBC AUTO 10*3/uL 5.70 5.60 < > -- HEMOGLOBIN g/dL 11.2* 11.9* < > -- HEMATOCRIT % 33.1* 35.0* < > -- MCV fL 94.0 93.8 < > -- PLATELETS AUTO 10*3/uL 209 223 < > -- < > = values in this interval not displayed. Chemistry: Results from last 7 days Lab Units 04/24/25 0407 04/23/25 0502 04/20/25 0515 SODIUM mmol/L 131* 134* 127* POTASSIUM mmol/L 3.9 4.1 3.9 CHLORIDE mmol/L 100 99 93* CO2 mmol/L 19* 26 26 BUN mg/dL 24 18 16 CREATININE mg/dL 1.45* 1.11 0.94 GLUCOSE mg/dL 122* 125* 127* MAGNESIUM mg/dL 1.9 1.6* -- CALCIUM mg/dL 8.0* 8.4* 8.8 Results from last 7 days Lab Units 04/23/25 0502 04/19/25 1214 AST U/L 34 22 ALT U/L 18 27 ALK PHOS U/L 48 51 BILIRUBIN TOTAL mg/dL 0.5 0.7 Historical Values: (Includes values prior to this admission) Lab Results Component Value Date CORTISOL 11.2 04/20/2025 HDL 29 04/24/2025 LDL 69 04/24/2025 No results found for: [id number] , IRON , TIBC , C3 , C4 , COLLIN , CANCA , ASO , PSA , CEA , CA125 , CA199 , AFP , CA153 Cardiac catheterization PROCEDURE PHYSICIAN: Hay William MD . Indications: Kristy Doherty is a 69 y.o. male with ongoing hypotension. His echocardiogram shows reduced left ventricular and right ventricular systolic function. He was referred for right heart catheterization to guide of management. Assistants: None. Procedure Performed: Right heart catheterization. Placement of a DISHWASHER PREPARER Assawoman-Shannan catheter for hemodynamic monitoring. Access into the right internal jugular vein under ultrasound guidance. Methods: Procedure was explained to the patient with risks and benefits; he signed informed consent. he was brought to the lab instructor in a fasting state. The right neck area was prepped and draped in usual fashion. Micropuncture technique was used for access under ultrasound guidance into the right internal jugular vein. A 6-Hungarian x 11 cm sheath was placed. A 6-Hungarian Carrasquillo catheter was used for right heart catheterization and measurement of pressures and calculation of cardiac output using the estimated [place] method. Carrasquillo catheter was removed. Over a wire to the access sheath was upsized to a 9 Hungarian introducer sheath. A DISHWASHER PREPARER Assawoman-Shannan catheter was advanced with the aid of a V18 wire and the distal end of the catheter was advanced to the distal segment of the right pulmonary artery. The Assawoman-Shannan catheter was secured in place. he tolerated the procedure well and was transferred back to the hospital room. Hemodynamic Data: RA: 18 RV: 34/7, 16 PA: 37/24 (30) PCWP: 21 CO: 2.55 CI: 1.3 O2 Sat: PA sat: 33%, AO sat: 96% BP: 89/70 (78) TP PVR: 3.52 Wood units SVR: 1882 Metric units Melanie: 0.72 Cardiac power output: 0.44 Impression/Findings: Moderate elevation of left filling pressures. Moderate to severe elevation of right filling pressures. Moderate pulmonary hypertension. Severely reduced cardiac output and cardiac index. Controlled systemic hypertension. 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 Reduced Melanie consistent with right ventricular failure. Reduced cardiac power output and increased left-sided filling pressures is consistent with left-sided ventricular failure. Findings are consistent with biventricular failure. Successful placement of a DISHWASHER PREPARER Assawoman-Shannan catheter to guide management of heart failure. Plan: Patient will be started on intravenous inotropic therapy. Further recommendations per inpatient Cardiology service. Hay William MD ASSESSMENT Cardiogenic shock secondary to circumferential pericardial effusion and cardiac tamponade Chronic heart failure with reduced ejection fraction EF 20% s/p ICD Acute pericarditis Paroxysmal atrial fibrillation Frequent PVCs HTN HLD PLAN Cardiogenic shock secondary to circumferential pericardial effusion and cardiac tamponade Chronic heart failure with reduced ejection fraction EF 20% s/p ICD Patient had 300 cc removal with drain placement on 04/19, repeat echo on 04/23 showed severely reduced EF 20% and RV systolic function along with no inspiratory collapse of IVC Pericardial drain was removed on 04/20 due to resolution of effusion Assawoman Shannan placed on 04/24 PA 37/24 (30) PCWP 21 CO 2.55, CI 1.3 Melanie 0.72 Patient started on IV inotropic therapy of milrinone Will start IV Lasix drip and follow output Will restart GDMT as appropriate Appreciate cardiology input Possible acute pericarditis Could explain the pericardial effusion and tamponade Continue colchicine 0.6mg BID and allopurinol 300mg Paroxysmal atrial fibrillation CHADSVASC 3 (HTN, CHF, age) Had Watchamn on 01/2025 due to prior Eliquis bleeding Currently on aspirin and Plavix, continuing Rate controlled on Toprol 12.5 BID, continue as BP allows Started amiodarone Frequent PVCs on tele Likely is due to tamponade and current cardiogenic shock Toprol for suppression Continue tele and monitoring Lines/Drains Peripheral IV 04/23/25 Anterior;Right Forearm (Active) Site Assessment Clean;Dry;Intact 04/24/25799 Dressing Type Transparent 04/24/25799 Line Status Capped;Blood return noted;Flushed 04/24/25799 Dressing Status Clean;Dry;Intact 04/24/25799 Last ABG: None Fluids: PRN Pressor support: Milrinone Lines (location & placement): Assawoman Shannan DVT prophylaxis: Heparin subq Diet: Regular Code Status: FULL This note was completed using a voice commodities requirements analyst system. Every effort was made to ensure accuracy. However, inadvertent computerized commodities requirements analyst errors may be present. Karsten Gage PGY2 IM Resident [facility] 04/24/25 4:38 PM [1] Current Facility-Administered Medications: acetaminophen (Tylenol) tablet 650 mg, 650 mg, oral, q6h PRN, Benedict Christopher MD albuterol 90 mcg/actuation inhaler 1 puff, 1 puff, inhalation, BID PRN, Benedict Christopher MD allopurinol (Zyloprim) tablet 300 mg, 300 mg, oral, Daily, Benedict Christopher MD, 300 mg at 10/07/25 0917 aspirin chewable tablet 81 mg, 81 mg, oral, Daily with breakfast, Benedict Christopher MD, 81 mg at 04/24/25916 atorvastatin (Lipitor) tablet 40 mg, 40 mg, oral, Nightly, Benedict Christopher MD, 40 mg at 04/23/252129 clopidogrel (Plavix) tablet 75 mg, 75 mg, oral, Daily, Benedict Christopher MD, 75 mg at 04/24/25916 colchicine tablet 0.6 mg, 0.6 mg, oral, BID, Brenden Vivar MD, 0.6 mg at 04/24/25916 dapagliflozin propanediol (Farxiga) tablet 10 mg, 10 mg, oral, Once Daily, Benedict Christopher MD, 10 mg at 04/24/25916 enoxaparin (Lovenox) syringe 40 mg, 40 mg, subcutaneous, Daily, Benedict Christopher MD, 40 mg at metoprolol succinate XL (Toprol-XL) 24 hr split tablet 12.5 mg, 12.5 mg, oral, Daily, Elliott Nettles CNP, 12.5 mg at 04/24/251111 milrinone (Primacor) infusion 200 mcg/mL, 0.25 mcg/kg/min, intravenous, Continuous, Brenden Vivar MD mometasone-formoterol (Dulera 200) 200-5 mcg/actuation inhaler 2 puff, 2 puff, inhalation, BID, Benedict Christopher MD, 2 puff at 04/24/25916 naloxone (Narcan) injection 0.4 mg, 0.4 mg, intravenous, PRN OR naloxone (Narcan) injection 0.4mg, 0.4 mg, intramuscular, PRN OR naloxone (Narcan) injection 0.4 mg, 0.4 mg, subcutaneous, PRN, Benedict Christopher MD ondansetron ODT (Zofran-ODT) disintegrating tablet 4 mg, 4 mg, oral, q8h PRN, 4 mg at 04/24/25 0316OR ondansetron HCl (PF) (Zofran) injection 4 mg, 4 mg, intravenous, q6h PRN, Benedict Christopher MD, 4 mg at 04/23/25 0916 sennosides-docusate sodium (Mishel-Colace) 8.6-50 mg per tablet 1 tablet, 1 tablet, oral, BID PRN, Benedict Christopher MD [Held by provider] spironolactone (Aldactone) tablet 25 mg, 25 mg, oral, Daily, Benedict Christopher MD Cosigned by Pepe Anthony MD at 04/25/2025 6:02 PM EDT Associated attestation - Pepe Anthony MD - 04/25/2025 6:02 PM EDT I evaluated the patient with the resident/fellow Karsten Gage MD on the same day, agree with thefindings as described with the following additions or corrections: 69 male, brought in to ICU for concerns of cardiogenic shock. Reviewed right heart catheterization results, consistent with cardiogenic shock, secondary to low ejection fraction. Reviewed echo images independently, with apical akinesia, consistent with prior diagnosis of nonischemic cardiomyopathy. Acute pericarditis, with pericardial tamponade status post pericardiocentesis during this hospitalization, neutrophilic predominance noted. Maintained on colchicine. Cardiogenic shock, start patient on milrinone, monitor hemodynamics and pulmonary artery catheter measurements. Cardiorenal syndrome, aggressive IV diuresis, monitor urine output. Nephrology has been consulted. Paroxysmal atrial fibrillation, not on anticoagulation, status post watchman. Frequent PVCs, expect worsening with inotropic support. Monitor for fatal arrhythmias in ICU. Poor prognosis. I personally provided direct critical care services consisting of decision making of high complexity to assess, and support: Cardiogenic shock Acute renal failure High risk medication infusion of milrinone Coordination of care with cardiology and to prevent further deterioration for the organ dysfunction. Critical Care minutes were 40, which excludes time performing separately billed procedures, updating family, and teaching. * Hay William MD - 04/24/2025 2:36 PM EDT H&P reviewed. The patient was examined and there are no changes to the H&P. He continues harish hypotensive. We will proceed with right heart catheterization as requested by the primary cardiology service. Source Note - Brenden Vivar MD - 04/19/2025 1:53 PM EDT Cardiology Consult Note Reason for Consult: chest pain HPI: Kristy Doherty is a 69 y.o. male past medical history of paroxysmal atrial fibrillation s/p Watchman procedure on 02/06, chronic heart failure with reduced ejection fraction 25-30% s/p ICD 08/2022 whopresented to the hospital with chest pain. Patient reports having substernal chest pain, radiating to his back and neck since yesterday evening. Patient reports that his blood pressure has been running in the low 90s over 70s over the past couple of weeks. Denies any recent fever or chills/cough. Patient reports being compliant with all his medications. On my evaluation, the patient was lying comfortably in bed. Blood pressure is in the 90s over 70s and patient is tachycardic to the 100s. Reports that the chest pain currently is a 2 out of 10 in intensity and at its worst was around a 5 out of 10. Echocardiogram done showed moderate circumferential pericardial effusion with concerns for early tamponade physiology. Cardiology ROS: Review of Systems Constitutional: Negative for chills and fever. Cardiovascular: Positive for chest pain, dyspnea on exertion and orthopnea. Negative for irregular heartbeat, leg swelling, palpitations, paroxysmal nocturnal dyspnea and syncope. Respiratory: Negative for cough and shortness of breath. Gastrointestinal: Negative for abdominal pain, nausea and vomiting. Neurological: Negative for dizziness and light-headedness. Past Medical History He has a past medical history of Asthma (07/29/2012), CHF (congestive heart failure) ([facility]), Coronary artery disease, History of malignant neoplasm of prostate (07/03/2022), and Hypertension (07/03/2022). Surgical History He has a past surgical history that includes Prostatectomy; Cardiac catheterization; Sinus surgery;and Band hemorrhoidectomy. Social History He reports that he has quit smoking. His smoking use included cigarettes. He has never used smokeless tobacco. He reports current alcohol use of about 14.0 standard drinks of alcohol per week. He reports that he does not use drugs. Family History Family History[1] Allergies Octacosanol Medications Prescriptions Prior to Admission[2] Last Recorded Vitals Patient Vitals for the past 24 hrs: BP Temp Temp src Pulse Resp SpO2 Height Weight 04/19/25 1210 97/71 36.9 ??C (98.4 ??F) Temporal 100 20 96 % -- -- 04/19/25 1049 94/60 36.6 ??C (97.9 ??F) Temporal 94 19 93 % 1.727 m (5' 8 ) -- 04/19/25 1040 -- -- -- -- -- -- -- 82.6 kg (182 lb) Physical Examination: Physical Exam Constitutional: General: He is not in acute distress. Appearance: Normal appearance. HENT: Right Ear: External ear normal. Left Ear: External ear normal. Nose: Nose normal. Eyes: Extraocular Movements: Extraocular movements intact. Cardiovascular: Rate and Rhythm: Normal rate and regular rhythm. Heart sounds: Normal heart sounds. Pulmonary: Breath sounds: Normal breath sounds. No wheezing or rales. Abdominal: General: There is no distension. Palpations: Abdomen is soft. Tenderness: There is no abdominal tenderness. Musculoskeletal: Right lower leg: No edema. Left lower leg: No edema. Neurological: Mental Status: He is alert and oriented to person, place, and time. Psychiatric: Mood and Affect: Mood normal. Behavior: Behavior normal. Relevant Lab Results Encounter Date: 04/19/25 ECG 12 lead Result Value Ventricular Rate 99 Atrial Rate 99 ME Interval 196 QRS DURATION 104 QT Interval 322 QTC CALCULATION(BAZETT) 413 P Welch 43 R-Welch 21 T Wave Welch 67 Impression Normal sinus rhythm Low voltage QRS Cannot rule out Anteroseptal infarct (cited on or before 06-FEB-2025) Abnormal ECG When compared with ECG of 06-FEB-2025 07:43, Premature ventricular complexes are no longer Present Questionable change in initial forces of Lateral QT has shortened Confirmed by Bobo Raymond ([id number]) on 04/19/2025 12:19:35 PM Lab Results Component Value Date TROPONINI 0.04 07/02/2022 Complete Echo (TTE) w/wo Imaging Agent, Strain, 3D, Bubble Study Result Date: 04/19/2025 1 1 [facility] Heart Station [address] [place] [address] [phone] (fax) Echocardiogram-[facility] Name: KRISTY DOHERTY Study Date: 04/19/2025 12:46 PM B/P: 97 mmHg/71 mmHg HR: Date of : 1955 Location: [facility] Height: 68 in. Age: 69 year(s) Patient Room: 3183 Weight: 182 lb. Gender: Male Patient Status: InPt BSA: 1.96 m2 Indication: Chest Pain, s/p 35mm Watchman FLX Examination: Echocardiogram (Complete) ImageQuality: Fair Patient Consent: Procedure explained to patient Conclusions Left Ventricle: The left ventricle is normal size. Global left ventricular systolic function is normal. The EF is 60 % visually. Left ventricular wall thickness is normal. No regional wall motion abnormality. Right Ventricle:The right ventricle appears normal in size. Right ventricular systolic function appears normal. Doppler studies suggest normal right sided pressures. Left Atrium: Watchman device visualized . The left atrium appears normal in size. Aortic Valve: Mild aortic valve regurgitation. Tricuspid Valve: Mild tricuspid regurgitation. Pericardium: There is a moderate circumfrential pericardial effusion. There is also, significant mitral inflow variations consistent with early tamponade physiology. Measurements Left Ventricle Label Value Normal Value LVOT VTI 11.1 cm (18cm - 22cm) LVOT PGmax 3 mmHg LVEF visual 60 % LVOT PGmean 1 mmHg Right Ventricle Label Value Normal Value TAPSE 0.97 cm Aortic Valve Label Value Normal Value AV DVI 0.5 AV VTI 23.1 cm Mitral Valve Label Value Normal Value MV E Vmax 0.54 m/s MV A Vmax 0.79 m/s MV E/A 0.68 MV E/E' lateral 7.6 MV E' lateral 0.07 m/s Tricuspid Valve Label Value Normal Value RA Pressure 3 mmHg RVSP 30 mmHg TR Vmax 2.59 m/s Valvular Assessment LVOT 0.7 - 1.1 m/sec Aortic Valve 1.0 - 1.7 m/sec Mitral Valve 0.6 - 1.3 m/sec Tricuspid Valve 0.3 - 0.7 m/sec Pulmonic Valve 0.6 - 0.9 m/sec Regurgitation Mild No Mild No Max Velocity 0.81 m/sec 1.62 m/s 0.54m/sec 1.02 m/s Max Gradient 10.00 mmHg 4.00 mmHg Mean Gradient 5.00 mmHg Findings Left Ventricle: The left ventricle is normal size. Global left ventricular systolic function is normal. The EF is 60 % visually. Left ventricular wall thickness is normal. No regional wall motion abnormality. Right Ventricle: The right ventricle appears normal in size. Right ventricular systolic function appears normal. Doppler studies suggest normal right sided pressures. Left Atrium: Watchman device visualized .The left atrium appears normal in size. Right Atrium: The right atrium appears normal in size. Mitral Valve: The mitral valve is normal in mobility and thickness. No mitral regurgitation. Aortic Valve: Focal aortic cusp thickening is noted. Mild aortic valve regurgitation. Tricuspid Valve: Normal tricuspid valve. Mild tricuspid regurgitation. Pulmonic Valve: Normal pulmonary valve. No pulmonary regurgitation. Aorta: The aortic root exhibits normal size. Great Vessels: IVC: Normal size and course of the IVC. Pericardium: There is a moderate circumfrential pericardial effusion. There is also, significant mitral inflow variations consistent with early tamponade physiology. Procedure Staff Reading Group: [facility] Property Consultant: Bryanna Cazares RDCS Ordering Physician: HAKAN Canchola signed by MD Mitesh Vernon on 04/19/2025 at 01:44 PM Limited Transthoracic Echo (TTE) w/wo Contrast, Color Flow, Imaging Agent, Strain, 3D, Bubble Study Result Date: 02/07/2025 1 1 [facility] Heart Station [address] [place] [address] [phone] (fax) Echocardiogram-[facility] Name: KRISTY DOHERTY Study Date: 02/07/2025 08:02 AM B/P: 118 mmHg/85 mmHg HR: 63 bpm Date of : 1955 Location: [facility] Height: 68 in. Age: 69 year(s) Patient Room: 3176 Weight: 186 lb. Gender: Male Patient Status: InPt BSA: 1.98 m2 Indication: Atrial Fibrillation, Pacemaker, s/p 35mm Watchman FLX Examination: Limited Echo, Color flow imaging, Lumason Contrast Image Quality: Fair Patient Consent: Procedure explained to patient Exam Details Contrast: I.V. dose of Lumason Conclusions Left Ventricle: The left ventricle is [...] borders. Well seated 35mm Watchman FLX PRO. Measurements Left VentricleLabel Value Normal Value LVDd, 2D 5.86 cm (4.2cm - 5.9cm) LVDs, 2D 5.21 cm (2.1cm - 4cm) IVSd, 2D 0.91 cm (0.6cm - 1.1cm) LVPWd, 2D 1.06 cm (0.6cm - 1cm) LV Mass, 2D ASE 232.58 g LV Mass Index, 2D ASE 117.5 g/m?? (50g/m?? - 102.4g/m??) RWT, MM 0.36 (0 - 0.42) LVSVI, 2D 20.7 ml/m2 Aorta Label Value Normal Value AoRoot, 2D 3.4 cm (1.4cm - 3.8cm) Valvular Assessment LVOT 0.7 - 1.1 m/sec Aortic Valve1.0 - 1.7 m/sec Mitral Valve 0.6 - 1.3 m/sec Tricuspid Valve 0.3 - 0.7 m/sec Pulmonic Valve 0.6 - 0.9 m/sec Regurgitation Mild trivMil Findings Left Ventricle: The left ventricle is normal size. Global left ventricular systolic function is severely reduced. EF range is estimated at 25 % -30 %. Leftventricular wall thickness is increased. Diffuse global hypokinesis. Right Ventricle: The right ventricle is normal in size. Normal right ventricular systolic function. A pacemaker wire is seen in the right atrium and right ventricle. Left Atrium: The left atrium is normal in size. Right Atrium: The right atrium is normal in size. Mitral Valve: There is nonspecific thickening of the mitral valve leaflet. Trvial to mild mitral regurgitation. Aortic Valve: Focal aortic cusp thickening is noted. Mild aortic valve regurgitation. Tricuspid Valve: Normal tricuspid valve. Pulmonic Valve: Normal pulmonary valve. Aorta: The aortic root exhibits normal size. Great Vessels: IVC: The IVC is normal in size. Pericardium: No pericardial effusion. Procedure Staff Reading Group: [facility] Referring Physician: RUDY KING Property Consultant: SAMI Starr, RDCS Ordering Physician: CHUCK FUNEZ Transesophageal echo (MASON) Result Date: 12/01/2024 1 [facility] Heart Station [address] [place] [address] [phone] (fax) Transesophageal Echocardiogram-[facility] Name: KRISTY DOHERTY Study Date: 12/01/2024 12:00 PM B/P: 134 mmHg/87 mmHg HR: 80 bpm Date of : 1955 Location: [facility] Height: 68 in. Age: 69 year(s) Patient Room: Weight: 194 lb. Gender: Male PatientStatus: OutPt BSA: 2.02 m2 Indication: Atrial Fibrillation, Pre-Watchman Examination: MASON, Color flow imaging Image Quality: Excellent Patient Consent: Informed, written consent was obtained for the procedure Exam Location: A MASON was performed in the [facility] without complications Anesthesia Pharyngeal anesthesia with viscous Lidocaine Conclusions Left Ventricle: The left ventricle is normal size. Global left ventricular systolic function is severely reduced. EF range is estimated at 25 % -30 %. Left ventricular wall thickness is normal. Diffuse global hypokinesis. Right Ventricle: The right ventricle appears normal in size. Normal right ventricular systolic function. Left Atrium: The left a trium is severely enlarged. Left Atrium Appendage: The left atrial appendage is monolobular. Normalleft atrial appendage, no thrombus seen. ROBB measutments [...] 50 micrograms Valvular Assessment LVOT 0.7 - 1.1m/sec Aortic Valve 1.0 - 1.7 m/sec Mitral Valve 0.6 - 1.3 m/sec Tricuspid Valve 0.3 - 0.7 m/sec Pulm onic Valve 0.6 - 0.9 m/sec Regurgitation Mod [...] atrium is severely enlarged. Left Atrium Appendage: Theleft atrial appendage is normal. The left atrial [...] is a minimal pericardial effusion. The Attending Ph ysician was present and personally reviewed the examination with the fellow Procedure Staff ReadingGroup: [facility] Referring Physician: RUDY KING Property Consultant: DORIAN Walker Ordering Physician: Hay William MD No nuclear medicine results found for the past 12 months Relevant Imaging Results Complete Echo (TTE) w/wo Imaging Agent, Strain, 3D, Bubble Study 1 1 [facility] Heart Station [address] [place], [place] [address] [phone] (fax) Echocardiogram-[facility] Name: KRISTY DOHERTY Study Date: 04/19/2025 12:46 PM B/P: 97 mmHg/71 mmHg HR: Date of : 1955 Location: [facility] Height: 68 in. Age: 69 year(s) Patient Room: 3183 Weight: 182 lb. Gender: Male Patient Status: InPt BSA: 1.96 m2 Indication: Chest Pain, s/p 35mm Watchman FLX Examination: Echocardiogram (Complete) Image Quality: Fair Patient Consent: Procedure explained to patient Conclusions Left Ventricle: The left ventricle is normal size. Global left ventricular systolic function is normal. The EF is 60 % visually. Left ventricular wall thickness is normal. No regional wall motion abnormality. Right Ventricle: The right ventricle appears normal in size. Right ventricular systolic function appears normal. Doppler studies suggest normal right sided pressures. Left Atrium: Watchman device visualized . The left atrium appears normal in size. Aortic Valve: Mild aortic valve regurgitation. Tricuspid Valve: Mild tricuspid regurgitation. Pericardium: There is a moderate circumfrential pericardial effusion. There is also, significant mitral inflow variations consistent with early tamponade physiology. Measurements Left Ventricle Label Value Normal Value LVOT VTI 11.1 cm (18cm - 22cm) LVOT PGmax 3 mmHg LVEF visual 60 % LVOT PGmean 1 mmHg Right Ventricle Label Value Normal Value TAPSE 0.97 cm Aortic Valve Label Value Normal Value AV DVI 0.5 AV VTI 23.1 cm Mitral Valve Label Value Normal Value MV E Vmax 0.54 m/s MV A Vmax 0.79 m/s MV E/A 0.68 MV E/E' lateral 7.6 MV E' lateral 0.07 m/s Tricuspid Valve Label Value Normal Value RA Pressure 3 mmHg RVSP 30 mmHg TR Vmax 2.59 m/s Valvular Assessment LVOT 0.7 - 1.1 m/sec Aortic Valve 1.0 - 1.7 m/sec Mitral Valve 0.6 - 1.3 m/sec Tricuspid Valve 0.3 - 0.7 m/sec Pulmonic Valve 0.6 - 0.9 m/sec Regurgitation Mild No Mild No Max Velocity 0.81 m/sec 1.62 m/s 0.54 m/sec 1.02 m/s Max Gradient 10.00 mmHg 4.00 mmHg Mean Gradient 5.00 mmHg Findings Left Ventricle: The left ventricle is normal size. Global left ventricular systolic function is normal. The EF is 60 % visually. Left ventricular wall thickness is normal. No regional wall motion abnormality. Right Ventricle: The right ventricle appears normal in size. Right ventricular systolic function appears normal. Doppler studies suggest normal right sided pressures. Left Atrium: Watchman device visualized . The left atrium appears normal in size. Right Atrium: The right atrium appears normal in size. Mitral Valve: The mitral valve is normal in mobility and thickness. No mitral regurgitation. Aortic Valve: Focal aortic cusp thickening is noted. Mild aortic valve regurgitation. Tricuspid Valve: Normal tricuspid valve. Mild tricuspid regurgitation. Pulmonic Valve: Normal pulmonary valve. No pulmonary regurgitation. Aorta: The aortic root exhibits normal size. Great Vessels: IVC: Normal size and course of the IVC. Pericardium: There is a moderate circumfrential pericardial effusion. There is also, significant mitral inflow variations consistent with early tamponade physiology. Procedure Staff Reading Group: [facility] Property Consultant: Bryanna Cazares RDCS Ordering Physician: HAKAN REYES 12 lead Normal sinus rhythm Low voltage QRS Cannot rule out Anteroseptal infarct (cited on or before 06-FEB-2025) Abnormal ECG When compared with ECG of 06-FEB-2025 07:43, Premature ventricular complexes are no longer Present Questionable change in initial forces of Lateral QT has shortened Confirmed by Bobo Raymond ([id number]) on 04/19/2025 12:19:35 PM Assessment Circumferential moderate pericardial effusion, suggestive of tamponade physiology Paroxysmal atrial fibrillation s/p Watchman procedure 02/06/2025, on dual antiplatelet Chronic heart failure with improved ejection fraction status post ICD Essential hypertension Dyslipidemia Plan Echocardiogram done showed moderate pericardial effusion with concerns for early tamponade physiology. Will proceed with right heart catheterization and possible pericardiocentesis Proceed with 500 mL normal saline bolus Further recommendations to follow following right heart catheterization Continue to monitor electrolytes. Maintain potassium more than 4 and magnesium more than 2. Cardiology will continue to follow. Please call with any questions Brenden Vivar MD PGY-4 [employer] [facility] [1] Family History Problem Relation Name Age of Onset Other (pacemaker) Mother Stroke Mother Emphysema Father [2] Medications Prior to Admission Medication Sig Dispense Refill Last Dose/Taking allopurinol (Zyloprim) 300 mg tablet Take 300 mg by mouth in the morning. 04/18/2025 Morning aspirin 81 mg chewable tablet Chew 1 tablet (81 mg) with breakfast. 90 tablet 3 04/18/2025 Morning atorvastatin (Lipitor) 40 mg tablet Take 1 tablet (40 mg) by mouth at bedtime. 90 tablet 3 04/18/2025 Bedtime clopidogrel (Plavix) 75 mg tablet Take 1 tablet (75 mg) by mouth in the morning. 90 tablet 3 04/18/2025 Morning dapagliflozin propanediol (Farxiga) 10 mg Take 1 tablet (10 mg) by mouth once daily as directed. 90tablet 3 04/18/2025 Morning fluticasone (Flonase) 50 mcg/actuation nasal spray Administer 1 spray into each nostril two times daily. Shake gently. Before first use, prime pump. After use, clean tip and replace cap. 04/18/2025 Bedtime fluticasone propion-salmeteroL (Advair Diskus) 500-50 mcg/dose diskus inhaler Inhale 1 puff two times daily. 04/18/2025 Bedtime metoprolol succinate XL (Toprol-XL) 50 mg 24 hr tablet Take 1 tablet (50 mg) by mouth once daily asdirected. Do not crush or chew. 90 tablet 3 04/18/2025 Morning sacubitril-valsartan (Entresto) 97-103 mg tablet Take 1 tablet by mouth two times daily. 180 tablet3 04/18/2025 Bedtime spironolactone (Aldactone) 25 mg tablet Take 1 tablet (25 mg) by mouth in the morning. 90 tablet 3 04/18/2025 Morning albuterol 90 mcg/actuation inhaler Inhale 1 puff 2 times daily. amoxicillin (Amoxil) 500 mg tablet Take 4 tablets (2,000 mg) by mouth 1 (one) time if needed (30-60minute prior to dental procedures) for up to 20 doses. (Patient not taking: Reported on 04/19/2025) 20 tablet 3 Unknown Dupixent Syringe 300 mg/2 mL syringe injection Inject 300 mg under the skin every 14 (fourteen) days. 04/07/2025 Cosigned by Mitesh Vernon MD at 04/19/2025 3:54 PM EDT * Benedict Christopher MD - 04/19/2025 2:17 PM EDT History Of Present Illness Kristy Doherty is a 69 y.o. male presenting with chest pain and low blood pressure, echo showed mild pericardial effusion with findings suggestive of tamponade. The patient presents now for pericardiocentesis . Past Medical History Medical History[1] Surgical History Surgical History[2] Social History Social History Socioeconomic History Marital status: Single Spouse name: Not on file Number of children: Not on file Years of education: Not on file Highest education level: Not on file Occupational History Not on file Tobacco Use Smoking status: Former Types: Cigarettes Smokeless tobacco: Never Substance and Sexual Activity Alcohol use: Yes Alcohol/week: 14.0 standard drinks of alcohol Types: 14 Cans of beer per week Comment: occasional Drug use: Never Sexual activity: Defer Other Topics Concern Not on file Social History Narrative Not on file Social Drivers of Health Financial Resource Strain: Low Risk (04/19/2025) Overall Financial Resource Strain (CARDIA) Difficulty of Paying Living Expenses: Not hard at all Food Insecurity: No Food Insecurity (04/19/2025) Hunger Vital Sign Worried About Running Out of Food in the Last Year: Never true Ran Out of Food in the Last Year: Not on file Transportation Needs: No Transportation Needs (04/19/2025) Transportation Lack of Transportation (Medical): No Lack of Transportation (Non-Medical): Not on file Physical Activity: Not on file Stress: Not on file Social Connections: Not on file Intimate Partner Violence: Unknown (04/19/2025) Humiliation, Afraid, Rape, and Kick questionnaire Fear of Current or Ex-Partner: No Emotionally Abused: Not on file Physically Abused: Not on file Sexually Abused: Not on file Housing Stability: Low Risk (04/19/2025) Housing Stability Vital Sign Unable to Pay for Housing in the Last Year: No Number of Times Moved in the Last Year: Not on file Homeless in the Last Year: No Family History Family History[3] Allergies Allergies[4] Medications Prescriptions Prior to Admission[5] Review of Systems All other systems reviewed and are negative. Last Recorded Vitals Visit Vitals BP 97/71 (BP Location: Left arm, Patient Position: Lying) Pulse 100 Temp 36.9 ??C (98.4 ??F) (Temporal) Resp 20 Ht 1.727 m (5' 8 ) Wt 82.6 kg (182 lb) SpO2 95% BMI 27.67 kg/m?? Smoking Status Former BSA 1.99 m?? Physical Exam Vitals reviewed. Constitutional: Appearance: Normal appearance. He is normal weight. HENT: Head: Normocephalic. Nose: Nose normal. Mouth/Throat: Mouth: Mucous membranes are moist. Pharynx: Oropharynx is clear. Eyes: Pupils: Pupils are equal, round, and reactive to light. Cardiovascular: Rate and Rhythm: Normal rate and regular rhythm. Pulses: Normal pulses. Pulmonary: Effort: Pulmonary effort is normal. Breath sounds: Normal breath sounds. Abdominal: General: Abdomen is flat. Bowel sounds are normal. Palpations: Abdomen is soft. Musculoskeletal: General: Normal range of motion. Cervical back: Normal range of motion. Skin: General: Skin is warm and dry. Capillary Refill: Capillary refill takes less than 2 seconds. Coloration: Skin is not jaundiced. Findings: No bruising. Neurological: General: No focal deficit present. Mental Status: He is alert. Mental status is at baseline. Psychiatric: Mood and Affect: Mood normal. Relevant Lab Results Lab Results Component Value Date NA 126 (L) 04/19/2025 K 5.0 04/19/2025 CL 91 (L) 04/19/2025 CO2 28 04/19/2025 BUN 17 04/19/2025 CREATININE 0.98 04/19/2025 GLUCOSE 109 (H) 04/19/2025 CALCIUM 9.5 04/19/2025 ANIONGAP 12 04/19/2025 EGFR 83.5 04/19/2025 BCR 17.3 04/19/2025 Relevant Imaging Results Complete Echo (TTE) w/wo Imaging Agent, Strain, 3D, Bubble Study 1 1 [facility] Heart Station [address] [place] [address] [phone] (fax) Echocardiogram-[facility] Name: KRISTY DOHERTY Study Date: 04/19/2025 12:46 PM B/P: 97 mmHg/71 mmHg HR: Date of : 1955 Location: [facility] Height: 68 in. Age: 69 year(s) Patient Room: 3183 Weight: 182 lb. Gender: Male Patient Status: InPt BSA: 1.96 m2 Indication: Chest Pain, s/p 35mm Watchman FLX Examination: Echocardiogram (Complete) Image Quality: Fair Patient Consent: Procedure explained to patient Conclusions Left Ventricle: The left ventricle is normal size. Global left ventricular systolic function is normal. The EF is 60 % visually. Left ventricular wall thickness is normal. No regional wall motion abnormality. Right Ventricle: The right ventricle appears normal in size. Right ventricular systolic function appears normal. Doppler studies suggest normal right sided pressures. Left Atrium: Watchman device visualized . The left atrium appears normal in size. Aortic Valve: Mild aortic valve regurgitation. Tricuspid Valve: Mild tricuspid regurgitation. Pericardium: There is a moderate circumfrential pericardial effusion. There is also, significant mitral inflow variations consistent with early tamponade physiology. Measurements Left Ventricle Label Value Normal Value LVOT VTI 11.1 cm (18cm - 22cm) LVOT PGmax 3 mmHg LVEF visual 60 % LVOT PGmean 1 mmHg Right Ventricle Label Value Normal Value TAPSE 0.97 cm Aortic Valve Label Value Normal Value AV DVI 0.5 AV VTI 23.1 cm Mitral Valve Label Value Normal Value MV E Vmax 0.54 m/s MV A Vmax 0.79 m/s MV E/A 0.68 MV E/E' lateral 7.6 MV E' lateral 0.07 m/s Tricuspid Valve Label Value Normal Value RA Pressure 3 mmHg RVSP 30 mmHg TR Vmax 2.59 m/s Valvular Assessment LVOT 0.7 - 1.1 m/sec Aortic Valve 1.0 - 1.7 m/sec Mitral Valve 0.6 - 1.3 m/sec Tricuspid Valve 0.3 - 0.7 m/sec Pulmonic Valve 0.6 - 0.9 m/sec Regurgitation Mild No Mild No Max Velocity 0.81 m/sec 1.62 m/s 0.54 m/sec 1.02 m/s Max Gradient 10.00 mmHg 4.00 mmHg Mean Gradient 5.00 mmHg Findings Left Ventricle: The left ventricle is normal size. Global left ventricular systolic function is normal. The EF is 60 % visually. Left ventricular wall thickness is normal. No regional wall motion abnormality. Right Ventricle: The right ventricle appears normal in size. Right ventricular systolic function appears normal. Doppler studies suggest normal right sided pressures. Left Atrium: Watchman device visualized . The left atrium appears normal in size. Right Atrium: The right atrium appears normal in size. Mitral Valve: The mitral valve is normal in mobility and thickness. No mitral regurgitation. Aortic Valve: Focal aortic cusp thickening is noted. Mild aortic valve regurgitation. Tricuspid Valve: Normal tricuspid valve. Mild tricuspid regurgitation. Pulmonic Valve: Normal pulmonary valve. No pulmonary regurgitation. Aorta: The aortic root exhibits normal size. Great Vessels: IVC: Normal size and course of the IVC. Pericardium: There is a moderate circumfrential pericardial effusion. There is also, significant mitral inflow variations consistent with early tamponade physiology. Procedure Staff Reading Group: [facility] Property Consultant: Bryanna Cazares RDCS Ordering Physician: HAKAN REYES 12 lead Normal sinus rhythm Low voltage QRS Cannot rule out Anteroseptal infarct (cited on or before 06-FEB-2025) Abnormal ECG When compared with ECG of 06-FEB-2025 07:43, Premature ventricular complexes are no longer Present Questionable change in initial forces of Lateral QT has shortened Confirmed by Bobo Raymond (80) on 04/19/2025 12:19:35 PM Assessment -pericardial fluid with concerns for tamponade Plan: -RHC, LHC and possible pericardiocentesis Risks and benefits discussed with the patient including bleeding, injury to blood vessels, lung, heart or the need for emergent surgery, stroke, heart attack and [1] Past Medical History: Diagnosis Date Asthma 07/29/2012 CHF (congestive heart failure) (CMS/HCC) Coronary artery disease History of malignant neoplasm of prostate 07/03/2022 Hypertension 07/03/2022 [2] Past Surgical History: Procedure Laterality Date BAND HEMORRHOIDECTOMY CARDIAC CATHETERIZATION PROSTATECTOMY SINUS SURGERY [3] Family History Problem Relation Name Age of Onset Other (pacemaker) Mother Stroke Mother Emphysema Father [4] Allergies Allergen Reactions Octacosanol Unknown Other Reaction(s): Unknown [5] Medications Prior to Admission Medication Sig Dispense Refill Last Dose/Taking allopurinol (Zyloprim) 300 mg tablet Take 300 mg by mouth in the morning. 04/18/2025 Morning aspirin 81 mg chewable tablet Chew 1 tablet (81 mg) with breakfast. 90 tablet 3 04/18/2025 Morning atorvastatin (Lipitor) 40 mg tablet Take 1 tablet (40 mg) by mouth at bedtime. 90 tablet 3 04/18/2025 Bedtime clopidogrel (Plavix) 75 mg tablet Take 1 tablet (75 mg) by mouth in the morning. 90 tablet 3 04/18/2025 Morning dapagliflozin propanediol (Farxiga) 10 mg Take 1 tablet (10 mg) by mouth once daily as directed. 90tablet 3 04/18/2025 Morning fluticasone (Flonase) 50 mcg/actuation nasal spray Administer 1 spray into each nostril two times daily. Shake gently. Before first use, prime pump. After use, clean tip and replace cap. 04/18/2025 Bedtime fluticasone propion-salmeteroL (Advair Diskus) 500-50 mcg/dose diskus inhaler Inhale 1 puff two times daily. 04/18/2025 Bedtime metoprolol succinate XL (Toprol-XL) 50 mg 24 hr tablet Take 1 tablet (50 mg) by mouth once daily asdirected. Do not crush or chew. 90 tablet 3 04/18/2025 Morning sacubitril-valsartan (Entresto) 97-103 mg tablet Take 1 tablet by mouth two times daily. 180 tablet3 04/18/2025 Bedtime spironolactone (Aldactone) 25 mg tablet Take 1 tablet (25 mg) by mouth in the morning. 90 tablet 3 04/18/2025 Morning albuterol 90 mcg/actuation inhaler Inhale 1 puff 2 times daily. amoxicillin (Amoxil) 500 mg tablet Take 4 tablets (2,000 mg) by mouth 1 (one) time if needed (30-60minute prior to dental procedures) for up to 20 doses. (Patient not taking: Reported on 04/19/2025) 20 tablet 3 Unknown Dupixent Syringe 300 mg/2 mL syringe injection Inject 300 mg under the skin every 14 (fourteen) days. 04/07/2025 Cosigned by Venu Samaniego MD at 04/19/2025 2:27 PM EDT Associated attestation - Venu Samaniego MD - 04/19/2025 2:27 PM EDT I personally spoke with and examined Mr. Doherty and have reviewed his echo images and prior cath films. We plan right and left heart cath to evaluate if he is in tamponade. If so, then we plan pericardiocentesis. I have discussed with him the expected risks including bleeding, emergency surgery, vessel or heartinjury, pneumothorax, etc., he understands and agrees to proceed. * Hakan Reyes PA-C - 04/19/2025 12:20 PM EDT Images from the original note were not included. Hospital Medicine History and Physical 04/19/2025 12:20 PM THE HOSPITALIST TEAM PREFERS TO USE [employer] FOR NON-URGENT COMMUNICATION 7AM- 7PM. IF I DO NOT RESPOND WITHIN 20 MINUTES OR URGENT MATTERS, PLEASE CALL THROUGH THE CLINICAL LAB SPECIALIST. FROM 7PM-7AM, PLEASE PAGE [phone](COVR). Chief Complaint Chest pain History of Present Illness Kristy Doherty is an 69 y.o. male who came [facility] with chest pain with radiation to neck andback. Past medical history of heart failure with reduced ejection fraction, hypertension, coronary artery disease, cardiomyopathy nonischemic (AICD placed), hyperlipidemia, atrial fibrillation statuspost Watchman , asthma. Patient presents from [place] with chest pain radiating to the neck and back. He states that chest pain started last night was a constant sharp pain all over his chest. He states that the pain radiated to his neck and back rated pain a 5 out of 10. Patient stated when he was on his right side pain in his neck improved. At outside hospital patient was found to have small pericardial effusion on CT as well as potential atelectasis versus pneumonia. He also had a sodium of 123. His troponins were downtrending and from 11.5-10.5. Patient was also hypotensive at outside hospital which he states he has been hypotensive now for the past 2 weeks. At bedside patientstates that chest pain has improved and is now a 2 out of 10. He still states that chest pain radiates up to his neck. Along with chest pain he complains of fever, sweats, chest pain, shortness of breath, fatigue, weakness. Patient denies chills, palpitations, leg swelling, wheezing abdominal pain,nausea, vomiting, diarrhea, lightheadedness, dizziness, headache, visual changes. Review of System and Physical Exam Temp: [36.6 ??C (97.9 ??F)] 36.6 ??C (97.9 ??F) Heart Rate: [94] 94 Resp: [19] 19 BP: (94)/(60) 94/60 Physical Exam Constitutional: General: He is not in acute distress. Appearance: Normal appearance. HENT: Head: Normocephalic and atraumatic. Eyes: Extraocular Movements: Extraocular movements intact. Pupils: Pupils are equal, round, and reactive to light. Cardiovascular: Rate and Rhythm: Regular rhythm. Tachycardia present. Pulses: Normal pulses. Heart sounds: Normal heart sounds. Pulmonary: Effort: Pulmonary effort is normal. Breath sounds: Normal breath sounds. Abdominal: General: Abdomen is flat. There is no distension. Palpations: Abdomen is soft. Tenderness: There is no abdominal tenderness. Musculoskeletal: Right lower leg: No edema. Left lower leg: No edema. Skin: General: Skin is warm and dry. Neurological: General: No focal deficit present. Mental Status: He is alert and oriented to person, place, and time. Review of Systems Constitutional: Positive for diaphoresis, fatigue and fever. Negative for chills. Eyes: Negative for visual disturbance. Respiratory: Positive for cough and shortness of breath. Negative for wheezing. Cardiovascular: Negative for chest pain, palpitations and leg swelling. Gastrointestinal: Negative for abdominal pain, diarrhea, nausea and vomiting. Neurological: Positive for weakness. Negative for dizziness, light-headedness, numbness and headaches. Psychiatric/Behavioral: Negative for confusion and decreased concentration. Assessment and Plan Assessment & Plan Chest pain Pericardial effusion Relevant Hx: chest pain started last night with radiation to neck and jaw Course: ct at outside hospital showed a small pericardial effusion. Workup was negative for MA Daily Update: patient arrived from [facility]. Pain has improved to 2/10 Today's Plan: will continue to control pain as necessary. Cardiology consulted for investigation ofwatchman and other etiologies. Will continue to monitor. NPO for now. Echo showed signs of cardiac tamponade. Patient taken to heart cath with plan for possible pericardiocentesis. Cardiomyopathy (CMS/HCC) Heart failure with reduced ejection fraction (CMS/HCC) ICD (implantable cardioverter-defibrillator) in place Nonischemic cardiomyopathy Last echo on 02/07 showed Global left ventricular systolic function is severely reduced. EF range is estimated at 25 % -30 %. Left ventricular wall thickness is increased. Diffuse global hypokinesis. Will continue farxiga. Holding remaining GDMT due to hypotension AICD present Will monitor intake and output as well as daily weight checks. Atrial fibrillation (CMS/HCC) atrial fibrillation status post Watchman Will continue aspirin and plavix Will continue to monitor Uncomplicated asthma Restarted patients albuterol and switched from his Advair to our equivalent Primary hypertension Patient states he has been hypotensive for two weeks Holding antihypertensives for now Will continue to monitor patients blood pressure Coronary artery disease involving chemehuevi coronary artery of chemehuevi heart with angina pectoris Continue aspirin plavix and lipitor EKG is mostly unchanged from previous Troponins at outside hospital were downtrending from 11.5 to 10.5 Hyponatremia Sodium 126 Will continue to monitor Urine sodium and serum osmolality ordered VTE Prophylaxis: Lovenox ----- Focus of this inpatient stay will remain on problems that need acute care setting for care. We will review available studies and will order additional labs, imaging and other studies as appropriate. As needed medicines are ordered as appropriate. VTE Prophylaxis will be ordered as appropriate. Please see above for management plan for individual hospital problems. Home medications are reviewed and will be continued as appropriate. Patient will be continued to be followed during this hospital stay by a member of [facility]. Past Medical History Medical History[1] Past Surgical History Surgical History[2] Social History Social History Socioeconomic History Marital status: Single Spouse name: Not on file Number of children: Not on file Years of education: Not on file Highest education level: Not on file Occupational History Not on file Tobacco Use Smoking status: Former Types: Cigarettes Smokeless tobacco: Never Substance and Sexual Activity Alcohol use: Yes Alcohol/week: 14.0 standard drinks of alcohol Types: 14 Cans of beer per week Comment: occasional Drug use: Never Sexual activity: Defer Other Topics Concern Not on file Social History Narrative Not on file Social Drivers of Health Financial Resource Strain: Low Risk (04/19/2025) Overall Financial Resource Strain (CARDIA) Difficulty of Paying Living Expenses: Not hard at all Food Insecurity: No Food Insecurity (04/19/2025) Hunger Vital Sign Worried About Running Out of Food in the Last Year: Never true Ran Out of Food in the Last Year: Not on file Transportation Needs: No Transportation Needs (04/19/2025) Transportation Lack of Transportation (Medical): No Lack of Transportation (Non-Medical): Not on file Physical Activity: Not on file Stress: Not on file Social Connections: Not on file Intimate Partner Violence: Unknown (04/19/2025) Humiliation, Afraid, Rape, and Kick questionnaire Fear of Current or Ex-Partner: No Emotionally Abused: Not on file Physically Abused: Not on file Sexually Abused: Not on file Housing Stability: Low Risk (04/19/2025) Housing Stability Vital Sign Unable to Pay for Housing in the Last Year: No Number of Times Moved in the Last Year: Not on file Homeless in the Last Year: No Family History family history includes Emphysema in his father; Stroke in his mother; pacemaker in his mother. Allergies is allergic to octacosanol. Prior to Admission Medications Prescriptions Prior to Admission[3] Labs Labs Reviewed CBC COMPREHENSIVE METABOLIC PANEL Imaging ECG 12 lead Normal sinus rhythm Low voltage QRS Cannot rule out Anteroseptal infarct (cited on or before 06-FEB-2025) Abnormal ECG When compared with ECG of 06-FEB-2025 07:43, Premature ventricular complexes are no longer Present Questionable change in initial forces of Lateral QT has shortened Confirmed by Bobo Raymond ([id number]) on 04/19/2025 12:19:35 PM Signed Hakan Reyes PA-C [facility] 04/19/2025 12:20 PM [1] Past Medical History: Diagnosis Date Asthma 07/29/2012 CHF (congestive heart failure) (CMS/HCC) Coronary artery disease History of malignant neoplasm of prostate 07/03/2022 Hypertension 07/03/2022 [2] Past Surgical History: Procedure Laterality Date BAND HEMORRHOIDECTOMY CARDIAC CATHETERIZATION PROSTATECTOMY SINUS SURGERY [3] Medications Prior to Admission Medication Sig Dispense Refill Last Dose/Taking allopurinol (Zyloprim) 300 mg tablet Take 300 mg by mouth in the morning. 04/18/2025 Morning aspirin 81 mg chewable tablet Chew 1 tablet (81 mg) with breakfast. 90 tablet 3 04/18/2025 Morning atorvastatin (Lipitor) 40 mg tablet Take 1 tablet (40 mg) by mouth at bedtime. 90 tablet 3 04/18/2025 Bedtime clopidogrel (Plavix) 75 mg tablet Take 1 tablet (75 mg) by mouth in the morning. 90 tablet 3 04/18/2025 Morning dapagliflozin propanediol (Farxiga) 10 mg Take 1 tablet (10 mg) by mouth once daily as directed. 90tablet 3 04/18/2025 Morning fluticasone (Flonase) 50 mcg/actuation nasal spray Administer 1 spray into each nostril two times daily. Shake gently. Before first use, prime pump. After use, clean tip and replace cap. 04/18/2025 Bedtime fluticasone propion-salmeteroL (Advair Diskus) 500-50 mcg/dose diskus inhaler Inhale 1 puff two times daily. 04/18/2025 Bedtime metoprolol succinate XL (Toprol-XL) 50 mg 24 hr tablet Take 1 tablet (50 mg) by mouth once daily asdirected. Do not crush or chew. 90 tablet 3 04/18/2025 Morning sacubitril-valsartan (Entresto) 97-103 mg tablet Take 1 tablet by mouth two times daily. 180 tablet3 04/18/2025 Bedtime spironolactone (Aldactone) 25 mg tablet Take 1 tablet (25 mg) by mouth in the morning. 90 tablet 3 04/18/2025 Morning albuterol 90 mcg/actuation inhaler Inhale 1 puff 2 times daily. amoxicillin (Amoxil) 500 mg tablet Take 4 tablets (2,000 mg) by mouth 1 (one) time if needed (30-60minute prior to dental procedures) for up to 20 doses. (Patient not taking: Reported on 04/19/2025) 20 tablet 3 Unknown Dupixent Syringe 300 mg/2 mL syringe injection Inject 300 mg under the skin every 14 (fourteen) days. 04/07/2025 Cosigned by Kaiden Rain MD at 04/19/2025 6:34 PM EDT documented in this encounter Procedure Notes * Hakan Luz MD - 04/27/2025 3:30 PM EDT Images from the original note were not included. Ultrasound guided trialysis catheter placement Procedure note for : Kristy Doherty Procedure indication: Central access for dialysis Preprocedure diagnosis: Cardiorenal syndrome Postprocedure diagnosis: Same Consent: Obtained from patient Time out: A World Health Organization time-out was held immediately before procedure indicating procedure, procedure panel saw operator, patient, name, date of , indication, access site, listed allergies. Sedation: None Anesthesia: Local 1% lidocaine Procedure summary: The left femoral vein was identified under ultrasound. Using ultrasound the leftfemoral vein was seen non pulsating. After the patient was draped and cleaned in usual fashion a sterile drape was placed over the patient. The ultrasound was then covered with sterile probe. Sterileultrasound gel was placed at site and large bore needle was inserted under direct ultrasound visualization into the vein after appropriate local numbing. Nonpulsatile dark venous blood was aspirated easily through the syringe. Syringe was removed and guidewire was inserted through the needle. Needle was then removed and ultrasound was used to confirm placement of the guidewire in the vein. Large s calpel incision was then created along the tract of the guidewire followed by dilation. A previously flushed 13F temporary dialysis catheter was then placed over the guidewire after dilator was removed. All ports aspirated dark venous blood easily and flushed. Line was sutured in place and sterile dressing was placed over the catheter at the insertion site. Estimated blood loss other than what was aspirated: Less than 10 cc Total aspirated blood approximately 5 ml Complications: None Hakan Luz. Pulmonary Disease & Critical Care Medicine [facility] Cosigned by Pepe Anthony MD at 04/28/2025 6:58 PM EDT Associated attestation - Pepe Anthony MD - 04/28/2025 6:58 PM EDT I was present in the room for gonzáles portion and available otherwise for any immediate assistance. * Ayden Ordaz MD - 04/25/2025 9:33 PM EDT Images from the original note were not included. US guided Arterial line placement Pre-op Diagnosis: Shock Post-op Diagnosis: Shock Indication: Continuous and accurate blood pressure monitoring. Attending physician: Dr. Anthony Fellow: Dr. Ayden Ordaz Consent: Obtained from the patient and placed in the chart Time-out: A time-out was completed verifying correct patient, site, and procedure. Procedure summary: The patient was placed in supine position. The right wrist area was prepped and draped in a sterilemanner using a chlorhexidine scrub. The right radial artery was palpated, visualized using ultrasound and successfully cannulated on the first pass using ultrasound guidance, the guiding wire was inserted. The catheter was placed over the guidewire without any difficulty. Following, the guidewire was removed, the catheter was connected to the monitoring system and a good arterial wave form was observed on the monitor. Then the catheter was sutured into place and a sterile dressing was applied. The patient tolerated the procedure well COMPLICATIONS: None ESTIMATED BLOOD LOSS: 5 ml Ayden Ordaz [facility] Fellow [facility] Cosigned by Pepe Anthony MD at 04/26/2025 3:56 PM EDT Associated attestation - Pepe Anthony MD - 04/26/2025 3:56 PM EDT The procedure was performed/supervised by the trainee who is fully certified to perform such procedures. I was not present for the procedure. NOT BILLABLE. documented in this encounter Consult Notes * Brenda Cates - 05/04/2025 8:21 AM EDTAssociated Order(s): IP CONSULT TO SOCIAL WORK discharge planning: to Home with [facility] Patient came to this admission from their private residence in the community. - most recent OT session noting Patient is able to return to prior living environment (Patient maybenefit from home or outpatient PT to improve his endurance/ balance) - most recent PT session noting Patient is able to return to prior living environment - LDAs tab noting open wound elbow; noting presence of hemodialysis cath triple lumen; noting presence of male external urinary catheter - oxygen flowsheet listing Patient on Room Air at this time - follow up with [facility] on AVS - Patient may benefit from [facility] for therapies or Outpatient therapies - rolling walker recommended by OT; hcwl-od-posu and script sent to [facility] yesterday; awaiting update if insurance will cover and if [facility] can deliver to bedside 1000 - met with Patient in room; reviewed discharge planning - Patient agreeable to [facility] (does not prefer outpatient) but wants to wait until arrives to hospital today before choosing agencies to send any referrals - Patient agreeable to rolling walker arrangements; called [facility] [employer] and they confirmedthey have the rolling walker out for delivery today, to bring to bedside at hospital 1230 - met with Patient and spouse and reviewed discharge planning - Patient and spouse agreeable to [facility], provided preference of 1. [facility] [place] 2. [facility]; referrals sent, via [employer] system, awaiting replies - information provided that [employer] [employer] is planned to deliver a new rolling walker to bedside today; confirmed to spouse that if Patient does not need in the future, it will be Patient's sothey can keep it - spouse asking for hospital bed for Patient, citing heart failure and that they have 11 stairs to get to upper level of home and she does not feel safe doing that alone with Patient; typewriter aligner providedinformation/education about usual PCP process, but agreeable to asking treating physician this admission if they feel hospital bed is appropriate for Patient and if they deem appropriate to provide prescription and clinical documentation; awaiting outcome 1320 - called [facility] as Patient's spouse requested them; they do not offer hospital beds and recommended contacting [facility]; talked with Patient and spouse, they are agreeable to [facility]; referral for hospital bed faxed 1625 - [facility] confirmed Patient received rolling [facility] they confirmed they have made arrangements with family for deliveryto the home 1636 - AVS sent to [facility], via [employer] system * Renetta Broussard MD - 04/30/2025 6:08 PM EDTAssociated Order(s): IP CONSULT TO PALLIATIVE/INTEGRATIVE CARE Images from the original note were not included. CRITICAL ACCESS HOSPITAL PALLIATIVE CARE CONSULTATION Date of Service: 04/30/2025 Patient Name: Kristy Doherty : 1955 Subjective SUBJECTIVE Reason for Consultation: palliative care was consulted for complex goals of care CC: chest pain and low blood pressure HPI: 69 y.o. male with a significant past medical history of congestive heart failure, coronary artery disease as well as hypertension, asthma and a history of prostate cancer presented to the hospital with chest pain and hypotension. He was found to have pericardial effusion suggestive of tamponade. Patient underwent a pericardial centesis and 300 mL of fluid was removed. Cause of the fluid is not certain. Pericardial drain was removed on April 20. Patient has acute right ventricular failure as well as cardiogenic shock. He has a known reduced ejection fraction with [place] heart [employer] class 2-3. He has an ICD placed but according to the patient it has never gone off. Echocardiogram on April 23 showed ejection fraction 20% with severely reduced right ventricle systolic function, [id number] MR, mild AV regurg, mild TR, elevated RVSP 49. During this hospitalization patient developed non oliguric acute kidney injury with worsening urine output. This is likely related to cardiorenal syndrome type 1. Patient is currently getting CRRT. Patient underwent a Watchman procedure in January of this year. Right now patient is off dobutamine and he is holding his own with respect to blood pressure despite getting CRRT. Palliative care discussion below. Medical History[1] Surgical History[2] Family History[3] Social history: Patient is not and lives in [facility] with his significant other. Her nameis Lilia Ware. He believes that they have ACP forms completed ROS: denies any pain or shortness of breath. Feels slightly cold but the warming blanket is helping. Allergies: Patient has no known allergies. Home Medications: Prior to Admission medications Medication Sig Start Date End Date Taking? Authorizing Provider allopurinol (Zyloprim) 300 mg tablet Take 300 mg by mouth in the morning. Yes Historical Provider, aspirin 81 mg chewable tablet Chew 1 tablet (81 mg) with breakfast. 02/26/25 02/26/26 Yes Hay William MD atorvastatin (Lipitor) 40 mg tablet Take 1 tablet (40 mg) by mouth at bedtime. 11/06/24 Yes Hay William MD clopidogrel (Plavix) 75 mg tablet Take 1 tablet (75 mg) by mouth in the morning. 02/26/25 02/26/26 Yes Hay William MD dapagliflozin propanediol (Farxiga) 10 mg Take 1 tablet (10 mg) by mouth once daily as directed. 05/08/24 05/08/25 Yes Shania Chauhan CNP fluticasone (Flonase) 50 mcg/actuation nasal spray Administer 1 spray into each nostril two times daily. Shake gently. Before first use, prime pump. After use, clean tip and replace cap. Yes Historical Provider, fluticasone propion-salmeteroL (Advair Diskus) 500-50 mcg/dose diskus inhaler Inhale 1 puff two times daily. 10/07/22 Yes Historical Provider, metoprolol succinate XL (Toprol-XL) 50 mg 24 hr tablet Take 1 tablet (50 mg) by mouth once daily asdirected. Do not crush or chew. 08/08/24 08/08/25 Yes Hay William MD sacubitril-valsartan (Entresto) 97-103 mg tablet Take 1 tablet by mouth two times daily. 07/03/24 07/03/25 Yes Hay William MD spironolactone (Aldactone) 25 mg tablet Take 1 tablet (25 mg) by mouth in the morning. 08/18/24 08/18/25 Yes Hay William MD albuterol 90 mcg/actuation inhaler Inhale 1 puff 2 times daily. Historical Provider, amoxicillin (Amoxil) 500 mg tablet Take 4 tablets (2,000 mg) by mouth 1 (one) time if needed (30-60minute prior to dental procedures) for up to 20 doses. Patient not taking: Reported on 04/19/2025 02/26/25 Hay William MD Dupixent Syringe 300 mg/2 mL syringe injection Inject 300 mg under the skin every 14 (fourteen) days. 02/03/25 Historical Provider, Inpatient Medications: Current Medications[4] Objective OBJECTIVE BP 109/76 Pulse 84 Temp 36.5 ??C (97.7 ??F) Resp 19 Ht 1.727 m (5' 8 ) Wt 80.9 kg (178 lb5.6 oz) SpO2 96% BMI 27.12 kg/m?? Intake/Output Summary (Last 24 hours) at 04/30/2025 1809 Last data filed at 04/30/2025 1700 Gross per 24 hour Intake 4844.06 ml Output 8512 ml Net -3667.94 ml Exam: Patient is alert and oriented and seems to be in good spirits. He is not showing any evidenceof respiratory distress and he is not wearing oxygen. He is moving all extremities normally, he is in good spirits. His mood is pleasant, affect appropriate and judgment seems good. In preparation for, or response to, today's visit I Reviewed today's CBC/BMP, Reviewed recent ECG, Reviewed recent progress notes, and Reviewed consult notes Echo. PALLIATIVE CARE DISCUSSION Patient is aware that his cardiac condition is poor. He stated that prior to this more recent decline, he would get short of breath while doing some tasks but that improved with rest. He said they were able to go to a trip to [place] this past year and he is very thankful that nothing happened during that vacation. He does not wear oxygen at home. He was asked to get a sleep study at 1 time but henever did. He is aware that obstructive sleep apnea may be contributing to his atrial fibrillation.Patient's goal is that his kidney function continues to improve so that he does not need dialysis. He understands that if it does not improve then we will have another conversation about hemodialysis. He understands that hemodialysis is often difficult because it requires a certain amount of blood pressure in order for patients to complete the dialysis session. At this point the patient's goal iscontinue current aggressive care. ASSESSMENT 1. Tamponade of unknown etiology, hypotension, renal injury, significantly reduced heart function 2. Encounter for palliative care Code status-continue full code Next of kin- significant other Lilia per patient but we need to have copies of the DPOA for healthcare if it was truly done. Goals-continued improvement in renal function and blood pressure Symptoms -denies shortness of breath, pain, nausea or vomiting PLAN Continue full code and aggressive care Follow-up on advanced care planning documents, if these are not completed then they need to be if patient wants his significant other to be his next of kin and proxy Thank you for the opportunity to participate in the care of this patient. The palliative care team will continue to follow. Please contact us if we can be of additional assistance [phone]. Total time-60 minutes, [id number] Electronically signed by: Renetta Broussard MD [1] Past Medical History: Diagnosis Date Asthma 07/29/2012 CHF (congestive heart failure) (CMS/[facility]) Coronary artery disease History of malignant neoplasm of prostate 07/03/2022 Hypertension 07/03/2022 [2] Past Surgical History: Procedure Laterality Date BAND HEMORRHOIDECTOMY CARDIAC CATHETERIZATION PROSTATECTOMY SINUS SURGERY [3] Family History Problem Relation Name Age of Onset Other (pacemaker) Mother Stroke Mother Emphysema Father [4] Current Facility-Administered Medications: acetaminophen (Tylenol) tablet 650 mg, 650 mg, oral, q6h PRN, Benedict Christopher MD albuterol 90 mcg/actuation inhaler 1 puff, 1 puff, inhalation, BID PRN, Benedict Christopher MD allopurinol (Zyloprim) tablet 300 mg, 300 mg, oral, Daily, Benedict Christopher MD, 300 mg at 04/30/25 0826 alteplase (Cathflo Activase) injection 2 mg, 2 mg, intra-catheter, PRN, Jennifer Vences DO, 2 mg at 04/28/25 1103 aspirin chewable tablet 81 mg, 81 mg, oral, Daily with breakfast, Benedict Christopher MD, 81 mg at 04/30/25 0810 atorvastatin (Lipitor) tablet 40 mg, 40 mg, oral, Nightly, Benedict Christopher MD, 40 mg at 04/29/25 2100 clopidogrel (Plavix) tablet 75 mg, 75 mg, oral, Daily, Benedict Christopher MD, 75 mg at 04/30/25 0827 colchicine tablet 0.6 mg, 0.6 mg, oral, BID, Sagrario Martel MD, 0.6 mg at 04/30/25 08 [Held by provider] dapagliflozin propanediol (Farxiga) tablet 10 mg, 10 mg, oral, Once Daily, Benedict Christopher MD, 10 mg at 04/24/25 0917 glucose chewable tablet 24 g, 24 g, oral, q15 min PRN OR dextrose 50 % in water (D50W) syringe 25 g, 25 g, intravenous, q15 min PRN, Hakan Luz MD dialysate 4K/3Ca with bicarb CRRT solution (NxStage 401), 2,000 mL/hr, CRRT, Continuous, Kurtis Gonzalez MD, Last Rate: 2,000 mL/hr at 04/30/25 1210, 2,000 mL/hr at 04/30/25 1210 enoxaparin (Lovenox) syringe 40 mg, 40 mg, subcutaneous, Daily, Benedict Christopher MD, 40 mg at epoprostenol (Veletri) 500 mcg in sodium chloride 0.9 % 100 mL (5 mcg/mL) infusion, 4 ng/kg/min, intravenous, Continuous, Kurtis Gonzalez MD, Last Rate: 4.08 mL/hr at 04/30/25 1700, 4 ng/kg/min at 04/30/25 1700 [Held by provider] furosemide (Lasix) injection 80 mg, 80 mg, intravenous, q12h, Brenden Vivar MD, 80mg at 04/26/25 0509 guaiFENesin (Mucinex) 12 hr tablet 600 mg, 600 mg, oral, BID PRN, Karsten Gage MD, 600 mg at 04/30/25 0811 heparin (porcine) injection 15,000 Units, 15,000 Units, intra-catheter, PRN, Kurtis Gonzalez MD, 15,000 Units at 04/28/25 1047 hydrocortisone sodium succinate (Solu-CORTEF) injection 50 mg, 50 mg, intravenous, q12h ABILIO, Pepe Anthony MD, 50 mg at 04/30/25 0829 ipratropium-albuteroL (Duo-Neb) 0.5-2.5 mg/3 mL nebulizer solution 3 mL, 3 mL, nebulization, q6h while awake, Jennifer Vences DO, 3 mL at 04/30/25 1400 ipratropium-albuteroL (Duo-Neb) 0.5-2.5 mg/3 mL nebulizer solution 3 mL, 3 mL, nebulization, q4h PRN, Jennifer Vences DO, 3 mL at 04/28/25 0346 melatonin tablet 5 mg, 5 mg, oral, Nightly PRN, Ayden Ordaz MD, 5 mg at 04/29/25 2101 [Held by provider] metoprolol succinate XL (Toprol-XL) 24 hr split tablet 12.5 mg, 12.5 mg, oral, Daily, Elliott Nettles CNP, 12.5 mg at 04/25/25 1004 [Held by provider] milrinone (Primacor) infusion 200 mcg/mL, 0.25 mcg/kg/min, intravenous, Continuous, Bebo Dominguez MD, Stopped at 04/26/25 1112 mometasone-formoterol (Dulera 200) 200-5 mcg/actuation inhaler 2 puff, 2 puff, inhalation, BID, Benedict Christopher MD, 2 puff at 04/30/25 0808 naloxone (Narcan) injection 0.4 mg, 0.4 mg, intravenous, PRN OR naloxone (Narcan) injection 0.4mg, 0.4 mg, intramuscular, PRN OR naloxone (Narcan) injection 0.4 mg, 0.4 mg, subcutaneous, PRN, Benedict Christopher MD ondansetron ODT (Zofran-ODT) disintegrating tablet 4 mg, 4 mg, oral, q8h PRN, 4 mg at 04/27/25 0018OR ondansetron HCl (PF) (Zofran) injection 4 mg, 4 mg, intravenous, q6h PRN, Benedict Christopher MD, 4 mg at 04/23/25 0916 sennosides-docusate sodium (Mishel-Colace) 8.6-50 mg per tablet 1 tablet, 1 tablet, oral, BID, Hakan Luz MD, 1 tablet at 04/29/25 2101 simethicone (Mylicon) chewable tablet 80 mg, 80 mg, oral, q6h PRN, Hakan Luz MD, 80 mg at 04/28/25 2250 sodium bicarbonate 150 mEq in sterile water 1,000 mL infusion, 200 mL/hr, intravenous, Continuous, Kurtis Gonzalez MD, Last Rate: 200 mL/hr at 04/30/25 1703, 200 mL/hr at 04/30/25 1703 sodium chloride ([place]) 0.65 % nasal spray 1 spray, 1 spray, Each Nostril, PRN, Karsten Gage MD [Held by provider] spironolactone (Aldactone) tablet 25 mg, 25 mg, oral, Daily, Benedict Christopher MD * Christiano Conklin MD - 04/25/2025 2:58 PM EDTAssociated Order(s): IP CONSULT TO NEPHROLOGY Images from the original note were not included. Nephrology Consult Note Patient : Kristy Doherty; 69 y.o. Location: 3217/3217-01 Attending: Pepe Anthony MD Admit Date: 04/19/2025 Hospital Day: 6 Reason for Consult: Acute Kidney Injury. History of Present Illness: Kristy Doherty is a 69 y.o. male with PMHx significant for CAD, Atrial fibrillation s/p Watchman procedure, who was transferred from [place] with initial chief complaint of chest and back pain. The patient was noted to have a percardial effusion and echocardiogram and was taken for emergent pericar diocentesis with RHC and LHC. He had recurrence of his effusion with repeat echo demonstrating reduced RV function, RHC with elevated wedge pressures. Patient is seen and examined in MICU. He is currently receiving lasix 40 mg in addition to 40 received earlier. Plan to give 80 mg BID additional. Urine output this far has been minimal. He has a lanier catheter in place. Denies acute complaints incl uding chest pain and shortness of breath. Review of Systems: Review of Systems Constitutional: Negative for chills, fatigue and fever. Respiratory: Negative for cough and shortness of breath. Cardiovascular: Negative for chest pain, palpitations and leg swelling. Gastrointestinal: Negative for abdominal distention, abdominal pain, blood in stool, constipation, diarrhea, nausea and vomiting. Endocrine: Negative for polyuria. Genitourinary: Negative for decreased urine volume, dysuria and urgency. Musculoskeletal: Negative for arthralgias and back pain. Neurological: Negative for syncope, weakness and headaches. Input/Output: I/O last 3 completed shifts: In: 842.2 (10.1 mL/kg) [I.V.:842.2 (10.1 mL/kg)] Out: 10 (0.1 mL/kg) [Blood:10] Weight: 83.5 kg Vital Signs: Temperature: Temp: 36.6 ??C (97.9 ??F) TMax: Temp (24hrs), Av.3 ??C (97.4 ??F), Min:36.1 ??C (97 ??F), Max:36.6 ??C (97.9 ??F) Respirations: Resp: 22 Pulse: Heart Rate: 94 BP: BP: 102/73 BP Range: Systolic (24hrs), Av , Min:70 , Max:102 Diastolic (24hrs), Av, Min:52, Max:78 Wt Readings from Last 3 Encounters: 04/25/25 83.5 kg (184 lb 1.4 oz) 04/03/25 84.8 kg (187 lb) 02/26/25 85.7 kg (189 lb) Physical Examination: Physical Exam Constitutional: Appearance: Normal appearance. HENT: Head: Normocephalic and atraumatic. Cardiovascular: Rate and Rhythm: Normal rate and regular rhythm. Pulses: Normal pulses. Heart sounds: Normal heart sounds. Pulmonary: Breath sounds: Normal breath sounds. Abdominal: General: Abdomen is flat. Palpations: Abdomen is soft. Musculoskeletal: Right lower leg: No edema. Left lower leg: No edema. Neurological: Mental Status: He is alert. Labs: Chemistry: Lab Results Component Value Date NA 132 (L) 04/25/2025 K 3.4 (L) 04/25/2025 CL 99 04/25/2025 CO2 24 04/25/2025 ANIONGAP 12 04/25/2025 BUN 40 (H) 04/25/2025 CREATININE 2.96 (H) 04/25/2025 EGFR 22.2 (L) 04/25/2025 CALCIUM 7.1 (L) 04/25/2025 MG 1.9 04/25/2025 PHOS 3.5 04/25/2025 ALBUMIN 3.7 04/23/2025 PROT 6.8 04/23/2025 AST 34 04/23/2025 ALT 18 04/23/2025 BILITOT 0.5 04/23/2025 ALKPHOS 48 04/23/2025 Hematology & Iron studies: Lab Results Component Value Date WBC 6.72 04/25/2025 HGB 10.4 (L) 04/25/2025 HCT 30.2 (L) 04/25/2025 MCV 93.2 04/25/2025 PLT 205 04/25/2025 Urine chemistry: Lab Results Component Value Date NAUR 59 04/19/2025 Urinalysis & Microscopy: No results found for: COLORU , CLARITYU , SPECGRAVU , LOGAN , PROTUR , LEUKOCYTESU , NITRITEU , GLUCOSEU , KETONESU , BILIRUBINUR , UROBILINOGEN , BLOODU , RBCU , WBCU , SQUAMEPIU , MUCUSU , TRIPHOCRYU , CAOXALCRU , CAPHOSCRYU Urine Eosinophils: No components found for: UEOS Serology & Other labs: BNP: No results found for: BNP COLLIN: No results found for: COLLIN SPEP: Lab Results Component Value Date PROT 6.8 04/23/2025 UPEP: No components found for: LABPE C3: No results found for: C3 C4: No results found for: C4 MPO ANCA: No components found for: MPO PR3 ANCA: No components found for: PR3 Anti-GBM: No components found for: GBMABIGG Hep BsAg: No results found for: HEPBSAG Hep C AB: No results found for: HEPCAB Outpatient Medications & Allergies: Medication Documentation Review Audit Reviewed by Karrie Garza RN (Registered Nurse) on 04/19/25 at 1111 Medication Order Taking? Sig Documenting Provider Last Dose Status albuterol 90 mcg/actuation inhaler [id number] Inhale 1 puff 2 times daily. German ProviderMD Active allopurinol (Zyloprim) 300 mg tablet [id number] Yes Take 300 mg by mouth in the morning. German Walden MD 04/18/2025 Morning Active amoxicillin (Amoxil) 500 mg tablet [id number] No Take 4 tablets (2,000 mg) by mouth 1 (one) time if needed (30-60 minute prior to dental procedures) for up to 20 doses. Patient not taking: Reported on 04/19/2025 Hay William MD Unknown Active aspirin 81 mg chewable tablet [id number] Yes Chew 1 tablet (81 mg) with breakfast. Hay William MD 04/18/2025 Morning Active atorvastatin (Lipitor) 40 mg tablet [id number] Yes Take 1 tablet (40 mg) by mouth at bedtime. Hay William MD 04/18/2025 Bedtime Active clopidogrel (Plavix) 75 mg tablet [id number] Yes Take 1 tablet (75 mg) by mouth in the morning. Hay William MD 04/18/2025 Morning Active dapagliflozin propanediol (Farxiga) 10 mg [id number] Yes Take 1 tablet (10 mg) by mouth once daily asdirected. Shaina Chauhan CNP 04/18/2025 Morning Active Dupixent Syringe 300 mg/2 mL syringe injection [id number] No Inject 300 mg under the skin every 14 (fourteen) days. German ProviderMD 04/07/2025 Active fluticasone (Flonase) 50 mcg/actuation nasal spray [id number] Yes Administer 1 spray into each nostril two times daily. Shake gently. Before first use, prime pump. After use, clean tip and replace cap.German Walden MD 04/18/2025 Bedtime Active fluticasone propion-salmeteroL (Advair Diskus) 500-50 mcg/dose diskus inhaler [id number] Yes Inhale 1puff two times daily. Historical Provider, 04/18/2025 Bedtime Active metoprolol succinate XL (Toprol-XL) 50 mg 24 hr tablet [id number] Yes Take 1 tablet (50 mg) by mouth once daily as directed. Do not crush or chew. Hay William MD 04/18/2025 Morning Active sacubitril-valsartan (Entresto) 97-103 mg tablet [id number] Yes Take 1 tablet by mouth two times daily. Hay William MD 04/18/2025 Bedtime Active spironolactone (Aldactone) 25 mg tablet [id number] Yes Take 1 tablet (25 mg) by mouth in the morning.Hay William MD 04/18/2025 Morning Active Allergies[1] Current Inpatient Medications: Scheduled Meds: allopurinol, 300 mg, oral, Daily aspirin, 81 mg, oral, Daily with breakfast atorvastatin, 40 mg, oral, Nightly clopidogrel, 75 mg, oral, Daily [Held by provider] colchicine, 0.6 mg, oral, BID [Held by provider] dapagliflozin propanediol, 10 mg, oral, Once Daily enoxaparin, 40 mg, subcutaneous, Daily furosemide, 80 mg, intravenous, q12h magnesium oxide, 400 mg, oral, q8h [Held by provider] metoprolol succinate XL, 12.5 mg, oral, Daily mometasone-formoterol, 2 puff, inhalation, BID [Held by provider] spironolactone, 25 mg, oral, Daily Continuous Infusions: amiodarone, 0.5 mg/min, Last Rate: 0.5 mg/min (04/25/25 1400) milrinone, 0.5 mcg/kg/min, Last Rate: 0.5 mcg/kg/min (04/25/25 1400) norEPINEPHrine, 0.01-2 mcg/kg/min, Last Rate: 0.06 mcg/kg/min (04/25/25 1433) PRN Meds: PRN medications: acetaminophen, albuterol, naloxone OR naloxone OR naloxone, ondansetron ODT OR ondansetron, [Held by provider] sennosides- docusate sodium Past Medical/Surgical/Social/Family History: Past Medical History: Diagnosis Date Asthma 07/29/2012 CHF (congestive heart failure) ([facility]) Coronary artery disease History of malignant neoplasm of prostate 07/03/2022 Hypertension 07/03/2022 Past Surgical History: Procedure Laterality Date BAND HEMORRHOIDECTOMY CARDIAC CATHETERIZATION PROSTATECTOMY SINUS SURGERY Social History Socioeconomic History Marital status: Single Spouse name: Not on file Number of children: Not on file Years of education: Not on file Highest education level: Not on file Occupational History Not on file Tobacco Use Smoking status: Former Types: Cigarettes Smokeless tobacco: Never Substance and Sexual Activity Alcohol use: Yes Alcohol/week: 14.0 standard drinks of alcohol Types: 14 Cans of beer per week Comment: occasional Drug use: Never Sexual activity: Defer Other Topics Concern Not on file Social History Narrative Not on file Social Drivers of Health Financial Resource Strain: Low Risk (04/19/2025) Overall Financial Resource Strain (CARDIA) Difficulty of Paying Living Expenses: Not hard at all Food Insecurity: No Food Insecurity (04/19/2025) Hunger Vital Sign Worried About Running Out of Food in the Last Year: Never true Ran Out of Food in the Last Year: Not on file Transportation Needs: No Transportation Needs (04/19/2025) Transportation Lack of Transportation (Medical): No Lack of Transportation (Non-Medical): Not on file Physical Activity: Not on file Stress: Not on file Social Connections: Not on file Intimate Partner Violence: Unknown (04/19/2025) Humiliation, Afraid, Rape, and Kick questionnaire Fear of Current or Ex-Partner: No Emotionally Abused: Not on file Physically Abused: Not on file Sexually Abused: Not on file Housing Stability: Low Risk (04/19/2025) Housing Stability Vital Sign Unable to Pay for Housing in the Last Year: No Number of Times Moved in the Last Year: Not on file Homeless in the Last Year: No Family History Problem Relation Name Age of Onset Other (pacemaker) Mother Stroke Mother Emphysema Father Radiology: === 04/19/25 === CTA CHEST W IV CONTRAST - Impression - * No central pulmonary embolus. * Small bilateral pleural effusions. * Enlarged main pulmonary artery suggestive of pulmonary arterial hypertension. Reflux of contrast into the suprahepatic IVC suggestive of right heart dysfunction. Approved by:Benedict Katz04/23/2025 5:40 PM. I, Howie Velasquez,have reviewed the image(s) and agree with the findings in this report. Electronically signed: Howie Ron. Assessment: Acute Kidney Injury, likely combination of ATN due to altered hemodynamics in setting of tamponade and contrast nephropathy Hyponatremia Hypokalemia Hypocalcemia CAD HFrEF Atrial fibrillation s/p Watchman Normocytic anemia Essential hypertension Plan: Monitor I/Os, trend serum creatinine Continue lasix 80 mg IV TID Monitor electrolytes, replete as needed Follow up results of RHC to guide further diuresis management Patient is noted to be on milrinone infusion Discussed with patient the possibility of renal replacement therapy if function continues to worsen. No current indication for hemodialysis. Avoid nephrotoxic agents Thank you for the consultation. Please do not hesitate to contact us for any questions/concerns. Wewill continue to follow along with you. Christiano Conklin MD Nephrology Fellow PGY 5 - [facility] Nephrology Pager: [phone] Phone (7am - 4pm): [phone] [1] Allergies Allergen Reactions Octacosanol Unknown Other Reaction(s): Unknown Cosigned by Zhen Feldman MD at 04/25/2025 5:54 PM EDT Associated attestation - Zhen Feldman MD - 04/25/2025 5:54 PM EDT By using the attestations below, the signing clinician agrees that I have read and verify that thedocumentation has been personally reviewed by me and ensure that the documentation accurately reflects the encounter. GC: I personally saw this patient on the day of the encounter, performed the gonzáles portion(s) of the service and participated in the management and confirm the resident's documentation. Please note there may be an additional personal documentation from me. * Brenden Vivar MD - 04/19/2025 1:53 PM EDT Cardiology Consult Note Reason for Consult: chest pain HPI: Kristy Doherty is a 69 y.o. male past medical history of paroxysmal atrial fibrillation s/p Watchman procedure on 02/06, chronic heart failure with reduced ejection fraction 25-30% s/p ICD 08/2022 whopresented to the hospital with chest pain. Patient reports having substernal chest pain, radiating to his back and neck since yesterday evening. Patient reports that his blood pressure has been running in the low 90s over 70s over the past couple of weeks. Denies any recent fever or chills/cough. Patient reports being compliant with all his medications. On my evaluation, the patient was lying comfortably in bed. Blood pressure is in the 90s over 70s and patient is tachycardic to the 100s. Reports that the chest pain currently is a 2 out of 10 in intensity and at its worst was around a 5 out of 10. Echocardiogram done showed moderate circumferential pericardial effusion with concerns for early tamponade physiology. Cardiology ROS: Review of Systems Constitutional: Negative for chills and fever. Cardiovascular: Positive for chest pain, dyspnea on exertion and orthopnea. Negative for irregular heartbeat, leg swelling, palpitations, paroxysmal nocturnal dyspnea and syncope. Respiratory: Negative for cough and shortness of breath. Gastrointestinal: Negative for abdominal pain, nausea and vomiting. Neurological: Negative for dizziness and light-headedness. Past Medical History He has a past medical history of Asthma (07/29/2012), CHF (congestive heart failure) ([facility]), Coronary artery disease, History of malignant neoplasm of prostate (07/03/2022), and Hypertension (07/03/2022). Surgical History He has a past surgical history that includes Prostatectomy; Cardiac catheterization; Sinus surgery;and Band hemorrhoidectomy. Social History He reports that he has quit smoking. His smoking use included cigarettes. He has never used smokeless tobacco. He reports current alcohol use of about 14.0 standard drinks of alcohol per week. He reports that he does not use drugs. Family History Family History[1] Allergies Octacosanol Medications Prescriptions Prior to Admission[2] Last Recorded Vitals Patient Vitals for the past 24 hrs: BP Temp Temp src Pulse Resp SpO2 Height Weight 04/19/25 1210 97/71 36.9 ??C (98.4 ??F) Temporal 100 20 96 % -- -- 04/19/25 1049 94/60 36.6 ??C (97.9 ??F) Temporal 94 19 93 % 1.727 m (5' 8 ) -- 04/19/25 1040 -- -- -- -- -- -- -- 82.6 kg (182 lb) Physical Examination: Physical Exam Constitutional: General: He is not in acute distress. Appearance: Normal appearance. HENT: Right Ear: External ear normal. Left Ear: External ear normal. Nose: Nose normal. Eyes: Extraocular Movements: Extraocular movements intact. Cardiovascular: Rate and Rhythm: Normal rate and regular rhythm. Heart sounds: Normal heart sounds. Pulmonary: Breath sounds: Normal breath sounds. No wheezing or rales. Abdominal: General: There is no distension. Palpations: Abdomen is soft. Tenderness: There is no abdominal tenderness. Musculoskeletal: Right lower leg: No edema. Left lower leg: No edema. Neurological: Mental Status: He is alert and oriented to person, place, and time. Psychiatric: Mood and Affect: Mood normal. Behavior: Behavior normal. Relevant Lab Results Encounter Date: 04/19/25 ECG 12 lead Result Value Ventricular Rate 99 Atrial Rate 99 ME Interval 196 QRS DURATION 104 QT Interval 322 QTC CALCULATION(BAZETT) 413 P Welch 43 R-Welch 21 T Wave Welch 67 Impression Normal sinus rhythm Low voltage QRS Cannot rule out Anteroseptal infarct (cited on or before 06-FEB-2025) Abnormal ECG When compared with ECG of 06-FEB-2025 07:43, Premature ventricular complexes are no longer Present Questionable change in initial forces of Lateral QT has shortened Confirmed by Bobo Raymond ([id number]) on 04/19/2025 12:19:35 PM Lab Results Component Value Date TROPONINI 0.04 07/02/2022 Complete Echo (TTE) w/wo Imaging Agent, Strain, 3D, Bubble Study Result Date: 04/19/2025 1 1 [facility] Heart Station [address] [place] [address] [phone] (fax) Echocardiogram-[facility] Name: KRISTY DOHERTY Study Date: 04/19/2025 12:46 PM B/P: 97 mmHg/71 mmHg HR: Date of : 1955 Location: [facility] Height: 68 in. Age: 69 year(s) Patient Room: 3183 Weight: 182 lb. Gender: Male Patient Status: InPt BSA: 1.96 m2 Indication: Chest Pain, s/p 35mm Watchman FLX Examination: Echocardiogram (Complete) ImageQuality: Fair Patient Consent: Procedure explained to patient Conclusions Left Ventricle: The left ventricle is normal size. Global left ventricular systolic function is normal. The EF is 60 % visually. Left ventricular wall thickness is normal. No regional wall motion abnormality. Right Ventricle:The right ventricle appears normal in size. Right ventricular systolic function appears normal. Doppler studies suggest normal right sided pressures. Left Atrium: Watchman device visualized . The left atrium appears normal in size. Aortic Valve: Mild aortic valve regurgitation. Tricuspid Valve: Mild tricuspid regurgitation. Pericardium: There is a moderate circumfrential pericardial effusion. There is also, significant mitral inflow variations consistent with early tamponade physiology. Measurements Left Ventricle Label Value Normal Value LVOT VTI 11.1 cm (18cm - 22cm) LVOT PGmax 3 mmHg LVEF visual 60 % LVOT PGmean 1 mmHg Right Ventricle Label Value Normal Value TAPSE 0.97 cm Aortic Valve Label Value Normal Value AV DVI 0.5 AV VTI 23.1 cm Mitral Valve Label Value Normal Value MV E Vmax 0.54 m/s MV A Vmax 0.79 m/s MV E/A 0.68 MV E/E' lateral 7.6 MV E' lateral 0.07 m/s Tricuspid Valve Label Value Normal Value RA Pressure 3 mmHg RVSP 30 mmHg TR Vmax 2.59 m/s Valvular Assessment LVOT 0.7 - 1.1 m/sec Aortic Valve 1.0 - 1.7 m/sec Mitral Valve 0.6 - 1.3 m/sec Tricuspid Valve 0.3 - 0.7 m/sec Pulmonic Valve 0.6 - 0.9 m/sec Regurgitation Mild No Mild No Max Velocity 0.81 m/sec 1.62 m/s 0.54m/sec 1.02 m/s Max Gradient 10.00 mmHg 4.00 mmHg Mean Gradient 5.00 mmHg Findings Left Ventricle: The left ventricle is normal size. Global left ventricular systolic function is normal. The EF is 60 % visually. Left ventricular wall thickness is normal. No regional wall motion abnormality. Right Ventricle: The right ventricle appears normal in size. Right ventricular systolic function appears normal. Doppler studies suggest normal right sided pressures. Left Atrium: Watchman device visualized .The left atrium appears normal in size. Right Atrium: The right atrium appears normal in size. Mitral Valve: The mitral valve is normal in mobility and thickness. No mitral regurgitation. Aortic Valve: Focal aortic cusp thickening is noted. Mild aortic valve regurgitation. Tricuspid Valve: Normal tricuspid valve. Mild tricuspid regurgitation. Pulmonic Valve: Normal pulmonary valve. No pulmonary regurgitation. Aorta: The aortic root exhibits normal size. Great Vessels: IVC: Normal size and course of the IVC. Pericardium: There is a moderate circumfrential pericardial effusion. There is also, significant mitral inflow variations consistent with early tamponade physiology. Procedure Staff Reading Group: [facility] Property Consultant: Bryanna Cazares RDCS Ordering Physician: HAKAN Canchola signed by MD Mitesh Vernon on 04/19/2025 at 01:44 PM Limited Transthoracic Echo (TTE) w/wo Contrast, Color Flow, Imaging Agent, Strain, 3D, Bubble Study Result Date: 02/07/2025 1 1 [facility] Heart Station [address] [place] [address] (fax) Echocardiogram-[facility] Name: KRISTY DOHERTY Study Date: 02/07/2025 08:02 AM B/P: 118 mmHg/85 mmHg HR: 63 bpm Date of : 1955 Location: [facility] Height: 68 in. Age: 69 year(s) Patient Room: 3176 Weight: 186 lb. Gender: Male Patient Status: InPt BSA: 1.98 m2 Indication: Atrial Fibrillation, Pacemaker, s/p 35mm Watchman FLX Examination: Limited Echo, Color flow imaging, Lumason Contrast Image Quality: Fair Patient Consent: Procedure explained to patient Exam Details Contrast: I.V. dose of Lumason Conclusions Left Ventricle: The left ventricle is [...] borders. Well seated 35mm Watchman FLX PRO. Measurements Left VentricleLabel Value Normal Value LVDd, 2D 5.86 cm (4.2cm - 5.9cm) LVDs, 2D 5.21 cm (2.1cm - 4cm) IVSd, 2D 0.91 cm (0.6cm - 1.1cm) LVPWd, 2D 1.06 cm (0.6cm - 1cm) LV Mass, 2D ASE 232.58 g LV Mass Index, 2D ASE 117.5 g/m?? (50g/m?? - 102.4g/m??) RWT, MM 0.36 (0 - 0.42) LVSVI, 2D 20.7 ml/m2 Aorta Label Value Normal Value AoRoot, 2D 3.4 cm (1.4cm - 3.8cm) Valvular Assessment LVOT 0.7 - 1.1 m/sec Aortic Valve1.0 - 1.7 m/sec Mitral Valve 0.6 - 1.3 m/sec Tricuspid Valve 0.3 - 0.7 m/sec Pulmonic Valve 0.6 - 0.9 m/sec Regurgitation Mild trivMil Findings Left Ventricle: The left ventricle is normal size. Global left ventricular systolic function is severely reduced. EF range is estimated at 25 % -30 %. Leftventricular wall thickness is increased. Diffuse global hypokinesis. Right Ventricle: The right ventricle is normal in size. Normal right ventricular systolic function. A pacemaker wire is seen in the right atrium and right ventricle. Left Atrium: The left atrium is normal in size. Right Atrium: The right atrium is normal in size. Mitral Valve: There is nonspecific thickening of the mitral valve leaflet. Trvial to mild mitral regurgitation. Aortic Valve: Focal aortic cusp thickening is noted. Mild aortic valve regurgitation. Tricuspid Valve: Normal tricuspid valve. Pulmonic Valve: Normal pulmonary valve. Aorta: The aortic root exhibits normal size. Great Vessels: IVC: The IVC is normal in size. Pericardium: No pericardial effusion. Procedure Staff Reading Group: [facility] Referring Physician: RUDY KING Property Consultant: SAMI Starr, RDCS Ordering Physician: CHUCK FUNEZ Transesophageal echo (MASON) Result Date: 12/01/2024 1 [facility] Heart Station [address] [place] [address] [phone] (fax) Transesophageal Echocardiogram-[facility] Name: KRISTY DOHERTY Study Date: 12/01/2024 12:00 PM B/P: 134 mmHg/87 mmHg HR: 80 bpm Date of : 1955 Location: [facility] Height: 68 in. Age: 69 year(s) Patient Room: Weight: 194 lb. Gender: Male PatientStatus: OutPt BSA: 2.02 m2 Indication: Atrial Fibrillation, Pre-Watchman Examination: MASON, Color flow imaging Image Quality: Excellent Patient Consent: Informed, written consent was obtained for the procedure Exam Location: A MASON was performed in the [facility] without complications Anesthesia Pharyngeal anesthesia with viscous Lidocaine Conclusions Left Ventricle: The left ventricle is normal size. Global left ventricular systolic function is severely reduced. EF range is estimated at 25 % -30 %. Left ventricular wall thickness is normal. Diffuse global hypokinesis. Right Ventricle: The right ventricle appears normal in size. Normal right ventricular systolic function. Left Atrium: The left a trium is severely enlarged. Left Atrium Appendage: The left atrial appendage is monolobular. Normalleft atrial appendage, no thrombus seen. ROBB measutments [...] 50 micrograms Valvular Assessment LVOT 0.7 - 1.1m/sec Aortic Valve 1.0 - 1.7 m/sec Mitral Valve 0.6 - 1.3 m/sec Tricuspid Valve 0.3 - 0.7 m/sec Pulm onic Valve 0.6 - 0.9 m/sec Regurgitation Mod [...] atrium is severely enlarged. Left Atrium Appendage: Theleft atrial appendage is normal. The left atrial [...] is a minimal pericardial effusion. The Attending Ph ysician was present and personally reviewed the examination with the fellow Procedure Staff ReadingGroup: [facility] Referring Physician: RUDY KING Property Consultant: DORIAN Walker Ordering Physician: Hay William MD No nuclear medicine results found for the past 12 months Relevant Imaging Results Complete Echo (TTE) w/wo Imaging Agent, Strain, 3D, Bubble Study 1 1 [facility] Heart Station [address] [place] [address] [phone] (fax) Echocardiogram-[facility] Name: KRISTY DOHERTY Study Date: 04/19/2025 12:46 PM B/P: 97 mmHg/71 mmHg HR: Date of : 1955 Location: [facility] Height: 68 in. Age: 69 year(s) Patient Room: 3183 Weight: 182 lb. Gender: Male Patient Status: InPt BSA: 1.96 m2 Indication: Chest Pain, s/p 35mm Watchman FLX Examination: Echocardiogram (Complete) Image Quality: Fair Patient Consent: Procedure explained to patient Conclusions Left Ventricle: The left ventricle is normal size. Global left ventricular systolic function is normal. The EF is 60 % visually. Left ventricular wall thickness is normal. No regional wall motion abnormality. Right Ventricle: The right ventricle appears normal in size. Right ventricular systolic function appears normal. Doppler studies suggest normal right sided pressures. Left Atrium: Watchman device visualized . The left atrium appears normal in size. Aortic Valve: Mild aortic valve regurgitation. Tricuspid Valve: Mild tricuspid regurgitation. Pericardium: There is a moderate circumfrential pericardial effusion. There is also, significant mitral inflow variations consistent with early tamponade physiology. Measurements Left Ventricle Label Value Normal Value LVOT VTI 11.1 cm (18cm - 22cm) LVOT PGmax 3 mmHg LVEF visual 60 % LVOT PGmean 1 mmHg Right Ventricle Label Value Normal Value TAPSE 0.97 cm Aortic Valve Label Value Normal Value AV DVI 0.5 AV VTI 23.1 cm Mitral Valve Label Value Normal Value MV E Vmax 0.54 m/s MV A Vmax 0.79 m/s MV E/A 0.68 MV E/E' lateral 7.6 MV E' lateral 0.07 m/s Tricuspid Valve Label Value Normal Value RA Pressure 3 mmHg RVSP 30 mmHg TR Vmax 2.59 m/s Valvular Assessment LVOT 0.7 - 1.1 m/sec Aortic Valve 1.0 - 1.7 m/sec Mitral Valve 0.6 - 1.3 m/sec Tricuspid Valve 0.3 - 0.7 m/sec Pulmonic Valve 0.6 - 0.9 m/sec Regurgitation Mild No Mild No Max Velocity 0.81 m/sec 1.62 m/s 0.54 m/sec 1.02 m/s Max Gradient 10.00 mmHg 4.00 mmHg Mean Gradient 5.00 mmHg Findings Left Ventricle: The left ventricle is normal size. Global left ventricular systolic function is normal. The EF is 60 % visually. Left ventricular wall thickness is normal. No regional wall motion abnormality. Right Ventricle: The right ventricle appears normal in size. Right ventricular systolic function appears normal. Doppler studies suggest normal right sided pressures. Left Atrium: Watchman device visualized . The left atrium appears normal in size. Right Atrium: The right atrium appears normal in size. Mitral Valve: The mitral valve is normal in mobility and thickness. No mitral regurgitation. Aortic Valve: Focal aortic cusp thickening is noted. Mild aortic valve regurgitation. Tricuspid Valve: Normal tricuspid valve. Mild tricuspid regurgitation. Pulmonic Valve: Normal pulmonary valve. No pulmonary regurgitation. Aorta: The aortic root exhibits normal size. Great Vessels: IVC: Normal size and course of the IVC. Pericardium: There is a moderate circumfrential pericardial effusion. There is also, significant mitral inflow variations consistent with early tamponade physiology. Procedure Staff Reading Group: [facility] Property Consultant: Bryanna Cazares RDCS Ordering Physician: HAKAN REYES 12 lead Normal sinus rhythm Low voltage QRS Cannot rule out Anteroseptal infarct (cited on or before 06-FEB-2025) Abnormal ECG When compared with ECG of 06-FEB-2025 07:43, Premature ventricular complexes are no longer Present Questionable change in initial forces of Lateral QT has shortened Confirmed by Bobo Raymond ([id number]) on 04/19/2025 12:19:35 PM Assessment Circumferential moderate pericardial effusion, suggestive of tamponade physiology Paroxysmal atrial fibrillation s/p Watchman procedure 02/06/2025, on dual antiplatelet Chronic heart failure with improved ejection fraction status post ICD Essential hypertension Dyslipidemia Plan Echocardiogram done showed moderate pericardial effusion with concerns for early tamponade physiology. Will proceed with right heart catheterization and possible pericardiocentesis Proceed with 500 mL normal saline bolus Further recommendations to follow following right heart catheterization Continue to monitor electrolytes. Maintain potassium more than 4 and magnesium more than 2. Cardiology will continue to follow. Please call with any questions Brenden Vivar MD PGY-4 [employer] Assistant [employer] [facility] [1] Family History Problem Relation Name Age of Onset Other (pacemaker) Mother Stroke Mother Emphysema Father [2] Medications Prior to Admission Medication Sig Dispense Refill Last Dose/Taking allopurinol (Zyloprim) 300 mg tablet Take 300 mg by mouth in the morning. 04/18/2025 Morning aspirin 81 mg chewable tablet Chew 1 tablet (81 mg) with breakfast. 90 tablet 3 04/18/2025 Morning atorvastatin (Lipitor) 40 mg tablet Take 1 tablet (40 mg) by mouth at bedtime. 90 tablet 3 04/18/2025 Bedtime clopidogrel (Plavix) 75 mg tablet Take 1 tablet (75 mg) by mouth in the morning. 90 tablet 3 04/18/2025 Morning dapagliflozin propanediol (Farxiga) 10 mg Take 1 tablet (10 mg) by mouth once daily as directed. 90tablet 3 04/18/2025 Morning fluticasone (Flonase) 50 mcg/actuation nasal spray Administer 1 spray into each nostril two times daily. Shake gently. Before first use, prime pump. After use, clean tip and replace cap. 04/18/2025 Bedtime fluticasone propion-salmeteroL (Advair Diskus) 500-50 mcg/dose diskus inhaler Inhale 1 puff two times daily. 04/18/2025 Bedtime metoprolol succinate XL (Toprol-XL) 50 mg 24 hr tablet Take 1 tablet (50 mg) by mouth once daily asdirected. Do not crush or chew. 90 tablet 3 04/18/2025 Morning sacubitril-valsartan (Entresto) 97-103 mg tablet Take 1 tablet by mouth two times daily. 180 tablet3 04/18/2025 Bedtime spironolactone (Aldactone) 25 mg tablet Take 1 tablet (25 mg) by mouth in the morning. 90 tablet 3 04/18/2025 Morning albuterol 90 mcg/actuation inhaler Inhale 1 puff 2 times daily. amoxicillin (Amoxil) 500 mg tablet Take 4 tablets (2,000 mg) by mouth 1 (one) time if needed (30-60minute prior to dental procedures) for up to 20 doses. (Patient not taking: Reported on 04/19/2025) 20 tablet 3 Unknown Dupixent Syringe 300 mg/2 mL syringe injection Inject 300 mg under the skin every 14 (fourteen) days. 04/07/2025 Cosigned by Mitesh Vernon MD at 04/19/2025 3:54 PM EDT Associated attestation - Mitesh Vernon MD - 04/19/2025 3:54 PM EDT By using the attestations below, the signing clinician agrees that I have read and verify that thedocumentation has been personally reviewed by me and ensure that the documentation accurately reflects the encounter. GC: I personally saw this patient on the day of the encounter with Dr. Vivar, Dr. Moctezuma and Dr. Silva, performed the gonzáles portion(s) of the service and participated in the management and confirm the resident's documentation. Please note there may be an additional personal documentation from me. Additional Comments: This is a very nice gentleman who presented with chest pain for the last day that is pleuritic in nature, that was constant initially then became pleuritic as a stated above which is now. Having increased dyspnea on exertion. I reviewed the echocardiogram images that showed pericardial effusion with significant mitral valve inflow variation. This patient is having hypotensionalso consistent with cardiac tamponade. Discussed the case with interventional cardiology and we are going to take him to the [facility] for emergent pericardiocentesis documented in this encounter Nursing Notes * Daisy Dior RN - 05/04/2025 4:32 PM EDT Reviewed discharge paperwork with pt and pt ; copy of paperwork reviewed with both at bedside. All questions answered and provided contact numbers once pt leaves if questions arise.Pt and pt wifeexpresses understanding and have no further questions at this time. * Yamila Jacques LPN - 05/04/2025 12:56 PM EDT Pt. Requires a semi electric hospital bed d/t Chronic heart failure with reduced EF. The head of his bed most be elevate at least 30 degrees at all times. He also requires positioning of the body notfeasible with an ordinary bed to alleviate shortness of breath. His medical conditions limits his mobility and impairs his ability to participate in MRADLS. The use of a hospital bed will significantly improve his ability to participate in MRADLS. He will use it on daily basis. The benefits and needs have been discussed with the pt. Cosigned by Benedict Pascual MD at 05/04/2025 1:05 PM EDT * Brenda Ayers RN - 05/03/2025 10:30 AM EDT Patient Name: Kristy Doherty : 1955 Primary Care Physician: Rudy King MD Admission Date: 04/19/2025 RAPID RESPONSE TEAM ICU TRANSFER FOLLOW-UP NOTE SUBJECTIVE / OBJECTIVE: Follow-up for previous transfer out of the ICU notification for 05/02 at 1656. ASSESSMENT / INTERVENTIONS: Recent Vital Signs: Vitals: 05/03/25 0400 05/03/25 0500 05/03/25 0809 05/03/25 1300 BP: 107/79 128/79 115/74 BP Location: Left arm Left arm Right arm Patient Position: Lying Lying Lying Pulse: 88 88 89 Resp: 18 19 Temp: 36.4 ??C (97.5 ??F) 36.4 ??C (97.5 ??F) 36.6 ??C (97.9 ??F) TempSrc: Temporal Temporal Temporal SpO2: 93% 96% 100% Weight: 84.5 kg (186 lb 4.6 oz) Height: Latest Labs: Results from last 7 days Lab Units 04/28/25 0854 PH ART 7.36 PCO2 ART mmHg 30* PO2 ART mmHg 86 HCO3 ART mmol/L 16.9* O2 SAT ART % 98.1 BASE EXC ART mmol/L -7.3* Lab Results Component Value Date WBC 6.22 05/03/2025 WBC 5.94 05/02/2025 HGB 9.2 (L) 05/03/2025 HGB 8.4 (L) 05/02/2025 HCT 27.4 (L) 05/03/2025 HCT 24.6 (L) 05/02/2025 MCV 92.9 05/03/2025 MCV 93.5 05/02/2025 PLT 187 05/03/2025 PLT 153 05/02/2025 NEUTROABS 4.11 05/03/2025 NEUTROABS 3.98 05/02/2025 Lab Results Component Value Date GLUCOSE 89 05/03/2025 GLUCOSE 105 (H) 05/02/2025 CALCIUM 7.3 (L) 05/03/2025 CALCIUM 7.3 (L) 05/02/2025 NA 129 (L) 05/03/2025 NA 133 (L) 05/02/2025 K 4.1 05/03/2025 K 3.1 (L) 05/02/2025 CO2 25 05/03/2025 CO2 33 (H) 05/02/2025 CL 94 (L) 05/03/2025 CL 93 (L) 05/02/2025 BUN 24 05/03/2025 BUN 20 05/02/2025 CREATININE 1.75 (H) 05/03/2025 CREATININE 1.69 (H) 05/02/2025 EGFR 41.6 (L) 05/03/2025 EGFR 43.4 (L) 05/02/2025 BCR 13.7 05/03/2025 BCR 11.8 05/02/2025 Lab Results Component Value Date MG 1.8 (L) 05/03/2025 MG 1.8 (L) 05/02/2025 Lab Results Component Value Date PHOS 1.8 (L) 05/03/2025 PHOS 2.5 05/02/2025 Lab Results Component Value Date ALT 129 (H) 05/02/2025 ALT 182 (H) 05/01/2025 AST 54 (H) 05/02/2025 AST 86 (H) 05/01/2025 ALKPHOS 60 05/02/2025 ALKPHOS 65 05/01/2025 BILITOT 0.7 05/02/2025 BILITOT 0.9 05/01/2025 Lab Results Component Value Date INR 1.23 (H) 07/02/2022 Follow-up: Patient doing OK resting in chair at this time. Family at bedside. Vitals are stable. Noconcerns from primary RN at this time. IF emergent concerns arise call rapid response. Brenda Ayers RN Rapid Response Team Nurse [phone] 05/03/2025 4:27 PM * Yamila Jacques LPN - 05/03/2025 7:58 AM EDT Pt. Requires a rolling walker d/t generalized weakness 2/2 CHF. The pt.'s medical condition limits his ability to participate in MRADLS. The pt.'s mobility limitation cannot be sufficiently resoled by the use of a cane and can be with a walker. The pt. Can safely use the rolling walker. It will sign ificantly improve MRADLS and will be used on a daily basis. The pt. Is aware of the need and benefit. Pt. requires a shower chair d/t generalized weakness 2/2 CHF. It will be used on a daily basis and will significantly improve MRADLS. Pt. can use the shower chair safely. Pt. aware of the benefit andneed. Cosigned by Benedict Pascual MD at 05/03/2025 8:01 AM EDT * Johnathan Chowdhury RN - 05/03/2025 12:23 AM EDT Patient Name: Kristy Doherty : 1955 Primary Care Physician: Rudy King MD Admission Date: 04/19/2025 RAPID RESPONSE TEAM ICU TRANSFER FOLLOW-UP NOTE SUBJECTIVE / OBJECTIVE: Follow-up for previous transfer out of the ICU notification for 05/02 at 1656. ASSESSMENT / INTERVENTIONS: Recent Vital Signs: Vitals: 05/02/25 1500 05/02/25 1721 05/02/25 1800 05/02/252004 BP: 129/85 101/59 106/66 BP Location: Left arm Patient Position: Lying Pulse: 90 87 85 94 Resp: 20 19 21 21 Temp: 36.3 ??C (97.3 ??F) TempSrc: Temporal SpO2: 98% 98% 96% 97% Weight: Height: Latest Labs: Results from last 7 days Lab Units 04/28/25 0854 PH ART 7.36 PCO2 ART mmHg 30* PO2 ART mmHg 86 HCO3 ART mmol/L 16.9* O2 SAT ART % 98.1 BASE EXC ART mmol/L -7.3* Lab Results Component Value Date WBC 5.94 05/02/2025 WBC 7.39 05/01/2025 HGB 8.4 (L) 05/02/2025 HGB 8.6 (L) 05/01/2025 HCT 24.6 (L) 05/02/2025 HCT 25.1 (L) 05/01/2025 MCV 93.5 05/02/2025 MCV 94.0 05/01/2025 PLT 153 05/02/2025 PLT 159 05/01/2025 NEUTROABS 3.98 05/02/2025 NEUTROABS 5.90 05/01/2025 Lab Results Component Value Date GLUCOSE 105 (H) 05/02/2025 GLUCOSE 99 05/01/2025 CALCIUM 7.3 (L) 05/02/2025 CALCIUM 7.7 (L) 05/01/2025 NA 133 (L) 05/02/2025 NA 136 05/01/2025 K 3.1 (L) 05/02/2025 K 3.9 05/01/2025 CO2 33 (H) 05/02/2025 CO2 35 (H) 05/01/2025 CL 93 (L) 05/02/2025 CL 96 (L) 05/01/2025 BUN 20 05/02/2025 BUN 11 05/01/2025 CREATININE 1.69 (H) 05/02/2025 CREATININE 1.01 05/01/2025 EGFR 43.4 (L) 05/02/2025 EGFR 80.5 05/01/2025 BCR 11.8 05/02/2025 BCR 10.9 05/01/2025 Lab Results Component Value Date MG 1.8 (L) 05/02/2025 MG 1.9 05/01/2025 Lab Results Component Value Date PHOS 2.5 05/02/2025 PHOS 2.4 (L) 05/01/2025 Lab Results Component Value Date ALT 129 (H) 05/02/2025 ALT 182 (H) 05/01/2025 AST 54 (H) 05/02/2025 AST 86 (H) 05/01/2025 ALKPHOS 60 05/02/2025 ALKPHOS 65 05/01/2025 BILITOT 0.7 05/02/2025 BILITOT 0.9 05/01/2025 Lab Results Component Value Date INR 1.23 (H) 07/02/2022 Follow-up: Vital signs have remained stable since transfer out of MICU. Patient is endorsing some left upper extremity pain, but has been given PRN medication to treat. No other questions or concernsreported by the bedside nurse, but encouraged to reach out to [facility] if anything changes over night. Johnathan Chowdhury RN Rapid Response Team Nurse [phone] 05/03/2025 12:23 AM * Kelly Nuno RN - 04/23/2025 12:04 PM EDT 1040 - Dr. Pascual at bedside. Vitals as charted, patient with intermittent nausea. All of the abovereviewed with Dr. Pascual. Dr. Pascual states he will review plan with cardiology before providing any further orders. 1200 - Message sent to Dr. Pascual and cardiology team to review echo results, vitals, and current ordered meds - specifically administration of aspirin and plavix. Cardiology states do not give meds at this time, will review and notify typewriter aligner if/when to administer. documented in this encounter Miscellaneous Notes * Care Plan - Myesha Schultz RN - 05/03/2025 10:43 PM EDT The patient is Moderately Stable - Low risk of patient condition declining or worsening The patient's goals for the shift include sleep The clinical goals for the shift include safety/comfort Over the shift, the patient made progress toward the following goals: Problem: Pain - Adult Goal: Verbalizes/displays adequate comfort level or baseline comfort level Outcome: Progressing Problem: Safety - Adult Goal: Free from fall injury Outcome: Progressing Problem: Discharge Planning Goal: Discharge to home or other facility with appropriate resources Outcome: Progressing Problem: Chronic Conditions and Co-morbidities Goal: Patient's chronic conditions and co-morbidity symptoms are monitored and maintained or improved Outcome: Progressing Problem: Cardiovascular - Adult Goal: Maintains optimal cardiac output and hemodynamic stability Outcome: Progressing Goal: Absence of cardiac dysrhythmias or at baseline Outcome: Progressing Problem: Skin/Tissue Integrity - Adult Goal: Skin integrity remains intact Outcome: Progressing Goal: Incisions, wounds, or drain sites healing without S/S of infection Outcome: Progressing Goal: Oral mucous membranes remain intact Outcome: Progressing Problem: Infection - Adult Goal: Absence of infection at discharge Outcome: Progressing Goal: Absence of infection during hospitalization Outcome: Progressing Goal: Absence of fever/infection during anticipated neutropenic period Outcome: Progressing Problem: Gastrointestinal - Adult Goal: Minimal or absence of nausea and vomiting Outcome: Progressing Goal: Maintains or returns to baseline bowel function Outcome: Progressing Goal: Maintains adequate nutritional intake Outcome: Progressing Problem: Genitourinary - Adult Goal: Absence of urinary retention Outcome: Progressing Goal: Urinary catheter remains patent Outcome: Progressing Problem: Neurosensory - Adult Goal: Achieves stable or improved neurological status Outcome: Progressing Goal: Achieves maximal functionality and self care Outcome: Progressing Problem: Respiratory - Adult Goal: Achieves optimal ventilation and oxygenation Outcome: Progressing Problem: Musculoskeletal - Adult Goal: Return mobility to safest level of function Outcome: Progressing Goal: Maintain proper alignment of affected body part Outcome: Progressing Goal: Return ADL status to a safe level of function Outcome: Progressing Problem: Metabolic/Fluid and Electrolytes - Adult Goal: Electrolytes maintained within normal limits Outcome: Progressing Goal: Hemodynamic stability and optimal renal function maintained Outcome: Progressing Goal: Glucose maintained within prescribed range Outcome: Progressing Problem: Hematologic - Adult Goal: Maintains hematologic stability Outcome: Progressing * Assessment & Plan Note - Benedict Pascual MD - 05/03/2025 2:05 PM EDTAssociated Problem(s): Cardiomyopathy (CMS/HCC) - Nonischemic cardiomyopathy. - Echo this admission showed EF 20%. - Continue Toprol and Farxiga. - Hold Entresto and spironolactone due to hypotension. - Right cath today. * Assessment & Plan Note - Benedict Pascual MD - 05/03/2025 2:05 PM EDTAssociated Problem(s): Heart failure with reduced ejection fraction (CMS/HCC) - Nonischemic cardiomyopathy. - Echo this admission showed EF 20%. - Continue Toprol and Farxiga. - Hold Entresto and spironolactone due to hypotension. - Right cath today. * Assessment & Plan Note - Benedict Pascual MD - 05/03/2025 2:05 PM EDTAssociated Problem(s): ICD (implantable cardioverter-defibrillator) in place - Nonischemic cardiomyopathy. - Echo this admission showed EF 20%. - Continue Toprol and Farxiga. - Hold Entresto and spironolactone due to hypotension. - Right cath today. * Assessment & Plan Note - Benedict Pascual MD - 05/03/2025 2:05 PM EDTAssociated Problem(s): Hematoma of intravenous catheter site - Neck side. - Fluid cx was sent. - We will order US neck. - Start doxy empirically. * Assessment & Plan Note - Benedict Pascual MD - 05/03/2025 12:13 PM EDTAssociated Problem(s): Cardiogenic shock (CMS/HCC) - Required Assawoman Shannan and dobutamine in ICU. - Improving. * Assessment & Plan Note - Benedict Pascual MD - 05/03/2025 12:13 PM EDTAssociated Problem(s): Chest pain - Echo on admission showed early tamponade. Patient was taken to lab instructor for Pericardiocentesis. Right heart cath was not suggestive for tamponade. 300 ml serosanguinous fluid. - Repeated echo showed mild effusion. * Assessment & Plan Note - Benedict Pascual MD - 05/03/2025 12:13 PM EDTAssociated Problem(s): Pericardial effusion - Echo on admission showed early tamponade. Patient was taken to lab instructor for Pericardiocentesis. Right heart cath was not suggestive for tamponade. 300 ml serosanguinous fluid. - Repeated echo showed mild effusion. * Assessment & Plan Note - Benedict Pascual MD - 05/03/2025 12:13 PM EDTAssociated Problem(s): Atrial fibrillation (CMS/HCC) - Currently paced. - Status post Watchman. - Continue aspirin and Plavix. * Assessment & Plan Note - Benedict Pascual MD - 05/03/2025 12:13 PM EDTAssociated Problem(s): Uncomplicated asthma - Albuterol and switched from his Advair to our equivalent. * Assessment & Plan Note - Benedict Pascual MD - 05/03/2025 12:13 PM EDTAssociated Problem(s): Primary hypertension - Continue Toprol, Farxiga and spironolactone. - Hold Entresto due to LINDA. * Assessment & Plan Note - Benedict Pascual MD - 05/03/2025 12:13 PM EDTAssociated Problem(s): Hypotension due to hypovolemia - Continue Toprol, Farxiga and spironolactone. - Hold Entresto due to LINDA. * Assessment & Plan Note - Benedict Pascual MD - 05/03/2025 12:13 PM EDTAssociated Problem(s): Sinus tachycardia - Continue Toprol, Farxiga and spironolactone. - Hold Entresto due to LINDA. 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 - Continue aspirin, Plavix, Lipitor. * Assessment & Plan Note - Benedict Pascual MD - 05/03/2025 12:13 PM EDTAssociated Problem(s): ATN (acute tubular necrosis) - Due to shock. - Required CRRT in ICU. - Monitor Crea while off dialysis. - Avoid nephrotoxic agents. * Assessment & Plan Note - Benedict Pascual MD - 05/03/2025 12:13 PM EDTAssociated Problem(s): Right ventricular dysfunction - Required Assawoman Shannan and dobutamine in ICU. - Improving. * Care Plan - Daisy Dior RN - 05/03/2025 9:03 AM EDT Problem: Pain - Adult Goal: Verbalizes/displays adequate comfort level or baseline comfort level Outcome: Progressing Flowsheets (Taken 05/03/2025 0816) Verbalizes/displays adequate comfort level or baseline comfort level: Encourage patient to monitor pain and request assistance Administer analgesics based on type and severity of pain and evaluate response Implement non-pharmacological measures as appropriate and evaluate response Assess pain using appropriate pain scale Notify Licensed Independent Practitioner if interventions unsuccessful or patient reports new pain Consider cultural and social influences on pain and pain management Problem: Safety - Adult Goal: Free from fall injury Outcome: Progressing Flowsheets (Taken 05/03/2025815) Free from fall injury: Assess patient frequently for physical needs Identify cognitive and physical deficits and behaviors that affect risk of falls [place] fall precautions as indicated by assessment Educate patient/family on patient safety, including physical limitations Instruct patient to call for assistance with activity based on assessment Modify environment to reduce risk of injury Consider OT/PT consult to assist with strengthening/mobility Problem: Discharge Planning Goal: Discharge to home or other facility with appropriate resources Outcome: Progressing Flowsheets (Taken 05/03/2025815) Discharge to home or other facility with appropriate resources: Identify barriers to discharge with patient and caregiver Arrange for needed discharge resources and transportation as appropriate Identify discharge learning needs (meds, wound care, etc) Arrange for interpreters to assist at discharge as needed Refer to discharge planning if patient needs post-hospital services based on physician order or complex needs related to functional status, cognitive ability or social support system Problem: Chronic Conditions and Co-morbidities Goal: Patient's chronic conditions and co-morbidity symptoms are monitored and maintained or improved Outcome: Progressing Flowsheets (Taken 05/03/2025815) Care Plan - Patient's Chronic Conditions and Co-Morbidity Symptoms are Monitored and Maintained or Improved: Collaborate with multidisciplinary team to address chronic and comorbid conditions and prevent exacerbation or deterioration Monitor and assess patient's chronic conditions and comorbid symptoms for stability, deterioration,or improvement Problem: Cardiovascular - Adult Goal: Maintains optimal cardiac output and hemodynamic stability Outcome: Progressing Flowsheets (Taken 05/03/2025815) Maintains optimal cardiac output and hemodynamic stability: Monitor blood pressure and heart rate Monitor urine output and notify Licensed Independent Practitioner for values outside of normal range Goal: Absence of cardiac dysrhythmias or at baseline Outcome: Progressing Flowsheets (Taken 05/03/2025815) Absence of cardiac dysrhythmias or at baseline: Monitor cardiac rate and rhythm Assess for signs of decreased cardiac output Problem: Skin/Tissue Integrity - Adult Goal: Skin integrity remains intact Outcome: Progressing Flowsheets (Taken 05/03/2025815) Skin integrity remains intact: Monitor for areas of redness and/or skin breakdown Change oxygen saturation probe site as needed Goal: Incisions, wounds, or drain sites healing without S/S of infection Outcome: Progressing Flowsheets (Taken 05/03/2025815) Incisions, wounds, or drain sites healing without sign and symptoms of infection: ADMISSION and DAILY: Assess and document risk factors for pressure ulcer development TWICE DAILY: Assess and document skin integrity TWICE DAILY: Assess and document dressing/incision, wound bed, drain sites and surrounding tissue Goal: Oral mucous membranes remain intact Outcome: Progressing Flowsheets (Taken 05/03/2025815) Oral mucous membranes remain intact: Assess oral mucosa and hygiene practices Implement preventative oral hygiene regimen Problem: Infection - Adult Goal: Absence of infection at discharge Outcome: Progressing Flowsheets (Taken 05/03/2025815) Absence of infection at discharge: Assess and monitor for signs and symptoms of infection Monitor lab/diagnostic results Goal: Absence of infection during hospitalization Outcome: Progressing Goal: Absence of fever/infection during anticipated neutropenic period Outcome: Progressing Flowsheets (Taken 05/03/2025815) Absence of fever/infection during anticipated neutropenic period: Monitor white blood cell count Problem: Gastrointestinal - Adult Goal: Minimal or absence of nausea and vomiting Outcome: Progressing Flowsheets (Taken 05/03/2025815) Minimal or absence of nausea and vomiting: Administer ordered antiemetic medications as needed Provide nonpharmacologic comfort measures as appropriate Goal: Maintains or returns to baseline bowel function Outcome: Progressing Flowsheets (Taken 05/03/2025815) Maintains or returns to baseline bowel function: Assess bowel function Encourage oral fluids to ensure adequate hydration Goal: Maintains adequate nutritional intake Outcome: Progressing Flowsheets (Taken 05/03/2025815) Maintains adequate nutritional intake: Monitor percentage of each meal consumed Identify factors contributing to decreased intake, treat as appropriate Goal: Establish and maintain optimal ostomy function Outcome: Progressing Problem: Genitourinary - Adult Goal: Absence of urinary retention Outcome: Progressing Flowsheets (Taken 05/03/2025815) Absence of urinary retention: Assess patient???s ability to void and empty bladder Monitor intake/output and perform bladder scan as needed Goal: Urinary catheter remains patent Outcome: Progressing Problem: Neurosensory - Adult Goal: Achieves stable or improved neurological status Outcome: Progressing Flowsheets (Taken 05/03/2025815) Achieves stable or improved neurological status: Assess for and report changes in neurological status Maintain blood pressure and fluid volume within ordered parameters to optimize cerebral perfusion and minimize risk of hemorrhage Goal: Absence of seizures Outcome: Progressing Goal: Remains free of injury related to seizures activity Outcome: Progressing Goal: Achieves maximal functionality and self care Outcome: Progressing Problem: Respiratory - Adult Goal: Achieves optimal ventilation and oxygenation Outcome: Progressing Flowsheets (Taken 05/03/2025815) Achieves optimal ventilation and oxygenation: Assess for changes in mentation and behavior Assess for changes in respiratory status Position to facilitate oxygenation and minimize respiratory effort Respiratory therapy support as indicated Assess and instruct to report shortness of breath or any respiratory difficulty Problem: Musculoskeletal - Adult Goal: Return mobility to safest level of function Outcome: Progressing Flowsheets (Taken 05/03/2025815) Return mobility to safest level of function: Assess patient stability and activity tolerance for standing, transferring and ambulating with or without assistive devices Goal: Maintain proper alignment of affected body part Outcome: Progressing Flowsheets (Taken 05/03/2025815) Maintain proper alignment of affected body part: Support and protect limb and body alignment per provider's orders Instruct and reinforce with patient and family use of appropriate assistive device and precautions (e.g. spinal or hip dislocation precautions) Goal: Return ADL status to a safe level of function Outcome: Progressing Flowsheets (Taken 05/03/2025815) Return ADL status to a safe level of function: Administer medication as ordered Assess activities of daily living deficits and provide assistive devices as needed Problem: Metabolic/Fluid and Electrolytes - Adult Goal: Electrolytes maintained within normal limits Outcome: Progressing Flowsheets (Taken 05/03/2025815) Electrolytes maintained within normal limits: Monitor labs and assess patient for signs and symptoms of electrolyte imbalances Administer electrolyte replacement as ordered Monitor response to electrolyte replacements, including repeat lab results as appropriate Goal: Hemodynamic stability and optimal renal function maintained Outcome: Progressing Flowsheets (Taken 05/03/2025815) Hemodynamic stability and optimal renal function maintained: Monitor labs and assess for signs and symptoms of volume excess or deficit Monitor intake, output and patient weight Goal: Glucose maintained within prescribed range Outcome: Progressing Flowsheets (Taken 05/03/2025815) Glucose maintained within prescribed range: Monitor blood glucose as ordered Assess for signs and symptoms of hyperglycemia and hypoglycemia Problem: Hematologic - Adult Goal: Maintains hematologic stability Outcome: Progressing Flowsheets (Taken 05/03/2025815) Maintains hematologic stability: Assess for signs and symptoms of bleeding or hemorrhage The patient is Moderately Stable - Low risk of patient condition declining or worsening The patient's goals for the shift include comfort The clinical goals for the shift include hemodynamically stable * Care Plan - Kannan Newell RN - 05/02/2025 9:57 PM EDT The patient is Moderately Stable - Low risk of patient condition declining or worsening The patient's goals for the shift include comfort, rest The clinical goals for the shift include stable labs * Care Plan - Little Hector RN - 05/02/2025 9:45 AM EDT The patient is Moderately Unstable - Medium risk of patient condition declining or worsening The patient's goals for the shift include comfort, rest The clinical goals for the shift include stable labs * Care Plan - Little Hector RN - 05/01/2025 10:59 AM EDT The patient is Moderately Unstable - Medium risk of patient condition declining or worsening The patient's goals for the shift include Comfort, rest The clinical goals for the shift include VSS * Care Plan - Viral Quiles RN - 04/30/2025 8:37 PM EDT The patient is Moderately Unstable - Medium risk of patient condition declining or worsening The patient's goals for the shift include comfort The clinical goals for the shift include VSS * Care Plan - Viral Quiles RN - 04/28/2025 8:35 PM EDT The patient is Moderately Unstable - Medium risk of patient condition declining or worsening The patient's goals for the shift include comfort The clinical goals for the shift include VSS * Care Plan - Viral Quiles RN - 04/27/2025 8:58 PM EDT The patient is Moderately Unstable - Medium risk of patient condition declining or worsening The patient's goals for the shift include comfort The clinical goals for the shift include VSS * Care Plan - Chely Flanagan RN - 04/25/2025 2:11 PM EDT Daily Case Management Update Multidisciplinary rounds have been completed. Barriers to Discharge: 04/25- brought to ICU for swan, worsening Cr, nephro on, patient started on milrinone, low dose of levo, lasix 80 BID. Amio drip. Diet: Dietary Orders (From admission, onward) Start Ordered 04/25/25 1226 Special Kitchen Request Once Comments: Please send up a [facility] Boost Chocolate. Thank you! 04/25/25 1227 04/24/25 1717 Regular Diet Heart Healthy/HTN, CABG,Stroke, (2gNA, low fat, low cholesterol) Diet effective now Question Answer Comment Room Service? Yes Fat restriction: Heart Healthy/HTN, CABG,Stroke, (2gNA, low fat, low cholesterol) 04/24/25 1717 Physician Expected Discharge Date: 04/22/2025 Discharge Delays: PT Six Click Score: OT Six Click Score: PT Recommendations: OT Recommendations: New Consults: Consult Orders (From admission, onward) Start Ordered 04/25/25 0742 Inpatient consult to Nephrology Once Specialty: Nephrology Provider: (Not yet assigned) Question Answer Comment [facility] NEPHROLOGY TEAM Reason for Consult? Cardiorenal syndrome Level of Consultation Consultation and Management 04/25/25 0741 04/24/25 1603 Inpatient consult to Electrophysiology Once Specialty: Electrophysiology Provider: (Not yet assigned) Question Answer Comment [facility] ELECTROPHYSIOLOGY TEAM Reason for Consult? NICM secondary to afib, worsening heart failure s/p RHC Level of Consultation Consultation and Management 04/24/25 1604 04/19/25 1156 Inpatient consult to Cardiology Once Specialty: Cardiology Provider: (Not yet assigned) Question Answer Comment [facility] CARDIOLOGY TEAM Reason for Consult? chest pain with radiation to neck. recent placement of watchman device Level of Consultation Consultation and Management 04/19/25 1156 * Assessment & Plan Note - Benedict Pascual MD - 04/24/2025 4:13 PM EDTAssociated Problem(s): Right ventricular dysfunction - CTA chest showed no PE. - Right cath today. * Assessment & Plan Note - Benedict Pascual MD - 04/24/2025 4:13 PM EDTAssociated Problem(s): Chest pain - Echo showed early tamponade. Patient was taken to lab instructor for Pericardiocentesis. Right heart cath was not suggestive for tamponade. 300 ml serosanguinous fluid. - Monitor BP. - Continue colchicine per Cardiology. - Repeated echo showed mild effusion. * Assessment & Plan Note - Benedict Pascual MD - 04/24/2025 4:13 PM EDTAssociated Problem(s): Pericardial effusion - Echo showed early tamponade. Patient was taken to lab instructor for Pericardiocentesis. Right heart cath was not suggestive for tamponade. 300 ml serosanguinous fluid. - Monitor BP. - Continue colchicine per Cardiology. - Repeated echo showed mild effusion. * Assessment & Plan Note - Benedict Pascual MD - 04/24/2025 4:13 PM EDTAssociated Problem(s): Cardiomyopathy (CMS/HCC) - Nonischemic cardiomyopathy. - Echo this admission showed EF 20%. - Continue Toprol and Farxiga. - Hold Entresto and spironolactone due to hypotension. - Right cath today. * Assessment & Plan Note - Benedict Pascual MD - 04/24/2025 4:13 PM EDTAssociated Problem(s): Heart failure with reduced ejection fraction (CMS/HCC) - Nonischemic cardiomyopathy. - Echo this admission showed EF 20%. - Continue Toprol and Farxiga. - Hold Entresto and spironolactone due to hypotension. - Right cath today. * Assessment & Plan Note - Benedict Pascual MD - 04/24/2025 4:13 PM EDTAssociated Problem(s): ICD (implantable cardioverter-defibrillator) in place - Nonischemic cardiomyopathy. - Echo this admission showed EF 20%. - Continue Toprol and Farxiga. - Hold Entresto and spironolactone due to hypotension. - Right cath today. * Assessment & Plan Note - Benedict Pascual MD - 04/24/2025 4:13 PM EDTAssociated Problem(s): Atrial fibrillation (CMS/HCC) - Currently paced. - Status post Watchman. - Continue aspirin and Plavix. * Assessment & Plan Note - Benedict Pascual MD - 04/24/2025 4:13 PM EDTAssociated Problem(s): Uncomplicated asthma - Albuterol and switched from his Advair to our equivalent. * Assessment & Plan Note - Benedict Pascual MD - 04/24/2025 4:13 PM EDTAssociated Problem(s): Primary hypertension - Continue Toprol. - Hold Entresto and spironolactone due to hypotension. * Assessment & Plan Note - Benedict Pascual MD - 04/24/2025 4:13 PM EDTAssociated Problem(s): Hypotension due to hypovolemia - Continue Toprol. - Hold Entresto and spironolactone due to hypotension. * Assessment & Plan Note - Benedict Pascual MD - 04/24/2025 4:13 PM EDTAssociated Problem(s): Sinus tachycardia - Continue Toprol. - Hold Entresto and spironolactone due to hypotension. * Assessment & Plan Note - Benedict Pascual MD - 04/24/2025 4:13 PM EDTAssociated Problem(s): Coronary artery disease involving che[place]huevi coronary artery of chemehuevi heart with angina pectoris - Nonobstructive. - Continue aspirin, Plavix, Lipitor. * Pre-Sedation Documentation - Hay William MD - 04/24/2025 2:43 PM EDT Patient: Kristy Doherty Procedure Information Date/Time: 04/24/251499 Procedure: Right heart cath Location: [facility] / [facility] (Cath) Providers: Hay William MD Clinical information reviewed: Allergies Meds Physical Exam Airway Mallampati: II TM distance: >3 FB Neck ROM: full Cardiovascular Rhythm: regular Rate: normal Dental Pulmonary Breath sounds clear to auscultation Neurological Abdominal Anesthesia Plan ASA 3 other (Conscious sedation.) Anesthetic plan and risks discussed with patient. Use of blood products discussed with patient who consented to blood products. Additional Equipment Requests * Significant Event - Birdie Schultz, RN - 04/24/2025 12:50 PM EDT 04/24/25 1241 Admission Assessment Questions Verify insurance with patient Yes Do you understand medical disease or what brought you into the hospital? Yes Who is your current PCP? Rudy King Can I schedule a follow up appointment for you at the time of discharge? Yes Does patient qualify for Complex Care Management Enrollment? No Do you understand why you are taking your current medications? Yes Are you taking your medications as prescribed? Yes Did patient provide teach back? No Pharmacy Bedside Delivery Status Not Interested Does the patient have a cyanide case hardener assigned to them through their insurance? No Living Arrangement (Current/Prior to Hospitalization) Private residence (with ) Does the patient have history of HHC or SNF? No Assistive Device Not applicable Patient's goal for discharge To discharge home Was patient reminded that goal for discharge is 11am? No Does the patient have transportation at discharge? Yes Type of Residence Private residence Is PT/OT appropriate? Yes Is PT/OT ordered? No Is SW consult appropriate? Yes Is SW consult ordered? No Do you understand the benefits of MyChart? No Were you able to send link and activate MyChart? No * Care Plan - Kimberly Syed RN - 04/24/2025 10:15 AM EDT The patient is Moderately Stable - Low risk of patient condition declining or worsening The patient's goals for the shift include comfort The clinical goals for the shift include VSS, safety * Care Plan - Reginald Staples RN - 04/23/2025 10:31 PM EDT The patient is Moderately Stable - Low risk of patient condition declining or worsening The patient's goals for the shift include comfort, rest The clinical goals for the shift include stable hemodynamics Problem: Pain - Adult Goal: Verbalizes/displays adequate comfort level or baseline comfort level Outcome: Progressing Problem: Safety - Adult Goal: Free from fall injury Outcome: Progressing Problem: Discharge Planning Goal: Discharge to home or other facility with appropriate resources Outcome: Progressing Problem: Chronic Conditions and Co-morbidities Goal: Patient's chronic conditions and co-morbidity symptoms are monitored and maintained or improved Outcome: Progressing Problem: Cardiovascular - Adult Goal: Maintains optimal cardiac output and hemodynamic stability Outcome: Progressing Goal: Absence of cardiac dysrhythmias or at baseline Outcome: Progressing Problem: Skin/Tissue Integrity - Adult Goal: Skin integrity remains intact Outcome: Progressing Goal: Incisions, wounds, or drain sites healing without S/S of infection Outcome: Progressing Problem: Infection - Adult Goal: Absence of infection at discharge Outcome: Progressing * Assessment & Plan Note - Benedict Pascual MD - 04/23/2025 3:28 PM EDTAssociated Problem(s): Chest pain - Echo showed early tamponade. Patient was taken to lab instructor for Pericardiocentesis. Right heart cath was not suggestive for tamponade. 300 ml serosanguinous fluid. - Monitor BP. - Continue colchicine per Cardiology. - Repeated echo showed mild effusion. * Assessment & Plan Note - Benedict Pascual MD - 04/23/2025 3:28 PM EDTAssociated Problem(s): Pericardial effusion - Echo showed early tamponade. Patient was taken to lab instructor for Pericardiocentesis. Right heart cath was not suggestive for tamponade. 300 ml serosanguinous fluid. - Monitor BP. - Continue colchicine per Cardiology. - Repeated echo showed mild effusion. * Assessment & Plan Note - Benedict Pascual MD - 04/23/2025 3:28 PM EDTAssociated Problem(s): Cardiomyopathy (CMS/HCC) - Nonischemic cardiomyopathy. - Echo this admission showed EF 20%. - Continue Toprol and Farxiga. - Hold Entresto and spironolactone due to hypotension. * Assessment & Plan Note - Benedict Pascual MD - 04/23/2025 3:28 PM EDTAssociated Problem(s): Heart failure with reduced ejection fraction (CMS/HCC) - Nonischemic cardiomyopathy. - Echo this admission showed EF 20%. - Continue Toprol and Farxiga. - Hold Entresto and spironolactone due to hypotension. * Assessment & Plan Note - Benedict Pascual MD - 04/23/2025 3:28 PM EDTAssociated Problem(s): ICD (implantable cardioverter-defibrillator) in place - Nonischemic cardiomyopathy. - Echo this admission showed EF 20%. - Continue Toprol and Farxiga. - Hold Entresto and spironolactone due to hypotension. * Assessment & Plan Note - Benedict Pascual MD - 04/23/2025 3:28 PM EDTAssociated Problem(s): Atrial fibrillation (CMS/HCC) - Status post Watchman. - Continue aspirin and Plavix. * Assessment & Plan Note - Benedict Pascual MD - 04/23/2025 3:28 PM EDTAssociated Problem(s): Uncomplicated asthma - Albuterol and switched from his Advair to our equivalent. * Assessment & Plan Note - Benedict Pascual MD - 04/23/2025 3:28 PM EDTAssociated Problem(s): Primary hypertension - Continue Toprol. - Hold Entresto and spironolactone due to hypotension. * Assessment & Plan Note - Benedict Pascual MD - 04/23/2025 3:28 PM EDTAssociated Problem(s): Hypotension due to hypovolemia - Continue Toprol. - Hold Entresto and spironolactone due to hypotension. * Assessment & Plan Note - Benedict Pascual MD - 04/23/2025 3:28 PM EDTAssociated Problem(s): Sinus tachycardia - Continue Toprol. - Hold Entresto and spironolactone due to hypotension. 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 - Continue aspirin, Plavix, Lipitor. * Assessment & Plan Note - Benedict Pascual MD - 04/23/2025 3:28 PM EDTAssociated Problem(s): Right ventricular dysfunction - We will order CTA chest due to tachycardia. - Left and right cath tomorrow. * Care Plan - Kelly Nuno RN - 04/23/2025 12:09 PM EDT The patient is Moderately Stable - Low risk of patient condition declining or worsening The patient's goals for the shift include comfort, rest The clinical goals for the shift include stable hemodynamics Problem: Pain - Adult Goal: Verbalizes/displays adequate comfort level or baseline comfort level Outcome: Progressing Problem: Safety - Adult Goal: Free from fall injury Outcome: Progressing Problem: Discharge Planning Goal: Discharge to home or other facility with appropriate resources Outcome: Progressing * Care Plan - Reginald Staples RN - 04/22/2025 8:54 PM EDT The patient is Moderately Stable - Low risk of patient condition declining or worsening The patient's goals for the shift include comfort, resst The clinical goals for the shift include stable hemodynamics Problem: Pain - Adult Goal: Verbalizes/displays adequate comfort level or baseline comfort level Outcome: Progressing Problem: Safety - Adult Goal: Free from fall injury Outcome: Progressing Flowsheets (Taken 04/22/20251999) Free from fall injury: Assess patient frequently for physical needs Identify cognitive and physical deficits and behaviors that affect risk of falls Educate patient/family on patient safety, including physical limitations Instruct patient to call for assistance with activity based on assessment Modify environment to reduce risk of injury Problem: Discharge Planning Goal: Discharge to home or other facility with appropriate resources Outcome: Progressing Problem: Chronic Conditions and Co-morbidities Goal: Patient's chronic conditions and co-morbidity symptoms are monitored and maintained or improved Outcome: Progressing Problem: Cardiovascular - Adult Goal: Maintains optimal cardiac output and hemodynamic stability Outcome: Progressing Goal: Absence of cardiac dysrhythmias or at baseline Outcome: Progressing Problem: Skin/Tissue Integrity - Adult Goal: Skin integrity remains intact Outcome: Progressing Goal: Incisions, wounds, or drain sites healing without S/S of infection Outcome: Progressing Problem: Infection - Adult Goal: Absence of infection at discharge Outcome: Progressing * Assessment & Plan Note - Osito Kline MD - 04/22/2025 8:13 PM EDTAssociated Problem(s): Chest pain - Echo showed early tamponade. Patient was taken to lab instructor for Pericardiocentesis. Right heart cath was not suggestive for tamponade. 300 ml serosanguinous fluid and pigtail was placed. - Monitor BP. - Continue colchicine per Cardiology. - Repeat echo on Monday 04/23. * Assessment & Plan Note - Osito Kline MD - 04/22/2025 8:13 PM EDTAssociated Problem(s): Pericardial effusion - Echo showed early tamponade. Patient was taken to lab instructor for Pericardiocentesis. Right heart cath was not suggestive for tamponade. 300 ml serosanguinous fluid and pigtail was placed. - Monitor BP. - Continue colchicine per Cardiology. - Repeat echo on Monday 04/23. * Assessment & Plan Note - Osito Kline MD - 04/22/2025 8:13 PM EDTAssociated Problem(s): Cardiomyopathy (CMS/HCC) - Nonischemic cardiomyopathy - Echo this admission showed EF 60%. - Hold Farxiga, Toprol, Entresto, spironolactone due to hypotension. Might resume tomorrow. * Assessment & Plan Note - Osito Kline MD - 04/22/2025 8:13 PM EDTAssociated Problem(s): Heart failure with reduced ejection fraction (CMS/HCC) - Nonischemic cardiomyopathy - Echo this admission showed EF 60%. - Hold Farxiga, Toprol, Entresto, spironolactone due to hypotension. Might resume tomorrow. * Assessment & Plan Note - Osito Kline MD - 04/22/2025 8:13 PM EDTAssociated Problem(s): ICD (implantable cardioverter-defibrillator) in place - Nonischemic cardiomyopathy - Echo this admission showed EF 60%. - Hold Farxiga, Toprol, Entresto, spironolactone due to hypotension. Might resume tomorrow. * Assessment & Plan Note - Osito Kline MD - 04/22/2025 8:13 PM EDTAssociated Problem(s): Atrial fibrillation (CMS/HCC) - Status post Watchman. - Continue aspirin and Plavix. * Assessment & Plan Note - Osito Kline MD - 04/22/2025 8:13 PM EDTAssociated Problem(s): Uncomplicated asthma - Albuterol and switched from his Advair to our equivalent. * Assessment & Plan Note - Osito Kline MD - 04/22/2025 8:13 PM EDTAssociated Problem(s): Primary hypertension - Hold Toprol, Entresto, spironolactone due to hypotension. Might resume tomorrow * Assessment & Plan Note - Osito Kline MD - 04/22/2025 8:13 PM EDTAssociated Problem(s): Hypotension due to hypovolemia - Hold Toprol, Entresto, spironolactone due to hypotension. 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 - Continue aspirin, Plavix, Lipitor. * Care Plan - Kelly Nuno RN - 04/22/2025 2:20 PM EDT The patient is Moderately Stable - Low risk of patient condition declining or worsening The patient's goals for the shift include comfort, rest The clinical goals for the shift include stable hemodynamics * Care Plan - Reginald Staples RN - 04/21/2025 9:06 PM EDT The patient is Moderately Stable - Low risk of patient condition declining or worsening The patient's goals for the shift include comfort/rest The clinical goals for the shift include stable hemodynamics Problem: Pain - Adult Goal: Verbalizes/displays adequate comfort level or baseline comfort level Outcome: Progressing Problem: Safety - Adult Goal: Free from fall injury Outcome: Progressing Flowsheets (Taken 04/21/2025 192) Free from fall injury: Assess patient frequently for physical needs Identify cognitive and physical deficits and behaviors that affect risk of falls Educate patient/family on patient safety, including physical limitations Instruct patient to call for assistance with activity based on assessment Modify environment to reduce risk of injury Problem: Discharge Planning Goal: Discharge to home or other facility with appropriate resources Outcome: Progressing Problem: Chronic Conditions and Co-morbidities Goal: Patient's chronic conditions and co-morbidity symptoms are monitored and maintained or improved Outcome: Progressing Problem: Cardiovascular - Adult Goal: Maintains optimal cardiac output and hemodynamic stability Outcome: Progressing Goal: Absence of cardiac dysrhythmias or at baseline Outcome: Progressing Problem: Skin/Tissue Integrity - Adult Goal: Skin integrity remains intact Outcome: Progressing Goal: Incisions, wounds, or drain sites healing without S/S of infection Outcome: Progressing Problem: Infection - Adult Goal: Absence of infection at discharge Outcome: Progressing * Assessment & Plan Note - Osito Kline MD - 04/21/2025 4:54 PM EDTAssociated Problem(s): Chest pain - Echo showed early tamponade. Patient was taken to lab instructor for Pericardiocentesis. Right heart cath was not suggestive for tamponade. 300 ml serosanguinous fluid and pigtail was placed. - Monitor BP. - Continue colchicine per Cardiology. - Follow up blood and fluid cx. - Repeat echo on Monday 04/23. * Assessment & Plan Note - Osito Kline MD - 04/21/2025 4:54 PM EDTAssociated Problem(s): Pericardial effusion - Echo showed early tamponade. Patient was taken to lab instructor for Pericardiocentesis. Right heart cath was not suggestive for tamponade. 300 ml serosanguinous fluid and pigtail was placed. - Monitor BP. - Continue colchicine per Cardiology. - Follow up blood and fluid cx. - Repeat echo on Monday 04/23. * Assessment & Plan Note - Osito lKine MD - 04/21/2025 4:54 PM EDTAssociated Problem(s): Cardiomyopathy (CMS/HCC) - Nonischemic cardiomyopathy - Echo this admission showed EF 60%. - Hold Farxiga, Toprol, Entresto, spironolactone due to hypotension. * Assessment & Plan Note - Osito Kline MD - 04/21/2025 4:54 PM EDTAssociated Problem(s): Heart failure with reduced ejection fraction (CMS/HCC) - Nonischemic cardiomyopathy - Echo this admission showed EF 60%. - Hold Farxiga, Toprol, Entresto, spironolactone due to hypotension. * Assessment & Plan Note - Osito Kline MD - 04/21/2025 4:54 PM EDTAssociated Problem(s): ICD (implantable cardioverter-defibrillator) in place - Nonischemic cardiomyopathy - Echo this admission showed EF 60%. - Hold Farxiga, Toprol, Entresto, spironolactone due to hypotension. * Care Plan - Kelly Nuno RN - 04/21/2025 10:34 AM EDT The patient is Moderately Stable - Low risk of patient condition declining or worsening The patient's goals for the shift include comfort, rest The clinical goals for the shift include stable hemodynamics Problem: Pain - Adult Goal: Verbalizes/displays adequate comfort level or baseline comfort level Outcome: Progressing Problem: Safety - Adult Goal: Free from fall injury Outcome: Progressing Problem: Discharge Planning Goal: Discharge to home or other facility with appropriate resources Outcome: Progressing * Assessment & Plan Note - Osito Kline MD - 04/21/2025 8:20 AM EDTAssociated Problem(s): Atrial fibrillation (CMS/HCC) - Status post Watchman. - Continue aspirin and Plavix. * Assessment & Plan Note - Osito Kline MD - 04/21/2025 8:20 AM EDTAssociated Problem(s): Uncomplicated asthma - Restarted patients albuterol and switched from his Advair to our equivalent. * Assessment & Plan Note - Osito Kline MD - 04/21/2025 8:20 AM EDTAssociated Problem(s): Primary hypertension - Hold Toprol, Entresto, spironolactone due to hypotension. * Assessment & Plan Note - Osito Kline MD - 04/21/2025 8:20 AM EDTAssociated Problem(s): Hypotension due to hypovolemia - Hold Toprol, Entresto, spironolactone due to hypotension. 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 - Continue aspirin, Plavix, Lipitor. - Hold Toprol due to hypotension. * Care Plan - Reginald Staples RN - 04/20/2025 8:17 PM EDT The patient is Moderately Stable - Low risk of patient condition declining or worsening The patient's goals for the shift include comfort, rest The clinical goals for the shift include stable vital signs Problem: Pain - Adult Goal: Verbalizes/displays adequate comfort level or baseline comfort level Outcome: Progressing Problem: Safety - Adult Goal: Free from fall injury Outcome: Progressing Problem: Discharge Planning Goal: Discharge to home or other facility with appropriate resources Outcome: Progressing Problem: Chronic Conditions and Co-morbidities Goal: Patient's chronic conditions and co-morbidity symptoms are monitored and maintained or improved Outcome: Progressing Problem: Cardiovascular - Adult Goal: Maintains optimal cardiac output and hemodynamic stability Outcome: Progressing Goal: Absence of cardiac dysrhythmias or at baseline Outcome: Progressing Problem: Skin/Tissue Integrity - Adult Goal: Skin integrity remains intact Outcome: Progressing Goal: Incisions, wounds, or drain sites healing without S/S of infection Outcome: Progressing Problem: Infection - Adult Goal: Absence of infection at discharge Outcome: Progressing * Assessment & Plan Note - Benedict Pascual MD - 04/20/2025 12:20 PM EDTAssociated Problem(s): Hyponatremia - Follow up urine Na and osmol. - Improving. * Assessment & Plan Note - Benedict Pascual MD - 04/20/2025 12:20 PM EDTAssociated Problem(s): Chest pain - Echo showed early tamponade. Patient was taken to lab instructor for Pericardiocentesis. Right heart cath was not suggestive for tamponade. 300 ml serosanguinous fluid and pigtail was placed. - Monitor BP. - Continue colchicine per Cardiology. - Follow up blood and fluid cx. - Repeat echo today. * Assessment & Plan Note - Benedict Pascual MD - 04/20/2025 12:20 PM EDTAssociated Problem(s): Pericardial effusion - Echo showed early tamponade. Patient was taken to lab instructor for Pericardiocentesis. Right heart cath was not suggestive for tamponade. 300 ml serosanguinous fluid and pigtail was placed. - Monitor BP. - Continue colchicine per Cardiology. - Follow up blood and fluid cx. - Repeat echo today. * Assessment & Plan Note - Benedict Pascual MD - 04/20/2025 12:20 PM EDTAssociated Problem(s): Cardiomyopathy (CMS/HCC) - Nonischemic cardiomyopathy with recovery. - Echo this admission showed EF 60%. - Hold Farxiga, Toprol, Entresto, spironolactone due to hypotension. * Assessment & Plan Note - Benedict Pascual MD - 04/20/2025 12:20 PM EDTAssociated Problem(s): Heart failure with reduced ejection fraction (CMS/HCC) - Nonischemic cardiomyopathy with recovery. - Echo this admission showed EF 60%. - Hold Farxiga, Toprol, Entresto, spironolactone due to hypotension. * Assessment & Plan Note - Benedict Pascual MD - 04/20/2025 12:20 PM EDTAssociated Problem(s): ICD (implantable cardioverter-defibrillator) in place - Nonischemic cardiomyopathy with recovery. - Echo this admission showed EF 60%. - Hold Farxiga, Toprol, Entresto, spironolactone due to hypotension. * Assessment & Plan Note - Benedict Pascual MD - 04/20/2025 12:20 PM EDTAssociated Problem(s): Atrial fibrillation (CMS/HCC) - Status post Watchman. - Continue aspirin and Plavix. * Assessment & Plan Note - Benedict Pascual MD - 04/20/2025 12:20 PM EDTAssociated Problem(s): Uncomplicated asthma - Restarted patients albuterol and switched from his Advair to our equivalent. * Assessment & Plan Note - Benedict Pascual MD - 04/20/2025 12:20 PM EDTAssociated Problem(s): Primary hypertension - Hold Toprol, Entresto, spironolactone due to hypotension. * Assessment & Plan Note - Benedict Pascual MD - 04/20/2025 12:20 PM EDTAssociated Problem(s): Hypotension due to hypovolemia - Hold Toprol, Entresto, spironolactone due to hypotension. 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 - Continue aspirin, Plavix, Lipitor. - Hold Toprol due to hypotension. * Care Plan - Radha Marsh RN - 04/20/2025 1:07 AM EDT The patient is Moderately Stable - Low risk of patient condition declining or worsening The patient's goals for the shift include comfort, rest The clinical goals for the shift include VSS, safety, rest, comfort Over the shift, the patient did not make progress toward the following goals. Barriers to progression include output from the pericardial drain. Recommendations to address these barriers include continue to follow the plan of care per the treatment team orders. Problem: Pain - Adult Goal: Verbalizes/displays adequate comfort level or baseline comfort level Outcome: Progressing Flowsheets (Taken 04/20/2025105) Verbalizes/displays adequate comfort level or baseline comfort level: Encourage patient to monitor pain and request assistance Assess pain using appropriate pain scale Administer analgesics based on type and severity of pain and evaluate response Implement non-pharmacological measures as appropriate and evaluate response Consider cultural and social influences on pain and pain management Notify Licensed Independent Practitioner if interventions unsuccessful or patient reports new pain Problem: Safety - Adult Goal: Free from fall injury Outcome: Progressing Flowsheets (Taken 04/20/2025105) Free from fall injury: Assess patient frequently for physical needs Identify cognitive and physical deficits and behaviors that affect risk of falls [place] fall precautions as indicated by assessment Educate patient/family on patient safety, including physical limitations Modify environment to reduce risk of injury Instruct patient to call for assistance with activity based on assessment Problem: Discharge Planning Goal: Discharge to home or other facility with appropriate resources Outcome: Progressing Flowsheets (Taken 04/20/2025105) Discharge to home or other facility with appropriate resources: Identify barriers to discharge withpatient and caregiver Problem: Chronic Conditions and Co-morbidities Goal: Patient's chronic conditions and co-morbidity symptoms are monitored and maintained or improved Outcome: Progressing Flowsheets (Taken 04/20/2025105) Care Plan - Patient's Chronic Conditions and Co-Morbidity Symptoms are Monitored and Maintained or Improved: Monitor and assess patient's chronic conditions and comorbid symptoms for stability, deterioration,or improvement Collaborate with multidisciplinary team to address chronic and comorbid conditions and prevent exacerbation or deterioration Update acute care plan with appropriate goals if chronic or comorbid symptoms are exacerbated and prevent overall improvement and discharge Problem: Cardiovascular - Adult Goal: Maintains optimal cardiac output and hemodynamic stability Outcome: Progressing Flowsheets (Taken 04/20/2025105) Maintains optimal cardiac output and hemodynamic stability: Monitor blood pressure and heart rate Goal: Absence of cardiac dysrhythmias or at baseline Outcome: Progressing Flowsheets (Taken 04/20/2025105) Absence of cardiac dysrhythmias or at baseline: Monitor cardiac rate and rhythm Assess for signs of decreased cardiac output Administer antiarrhythmia medication and electrolyte replacement as ordered Problem: Skin/Tissue Integrity - Adult Goal: Skin integrity remains intact Outcome: Progressing Flowsheets (Taken 04/20/2025105) Skin integrity remains intact: Monitor for areas of redness and/or skin breakdown Assess vascular access sites hourly Change oxygen saturation probe site as needed Goal: Incisions, wounds, or drain sites healing without S/S of infection Outcome: Progressing Flowsheets (Taken 04/20/2025105) Incisions, wounds, or drain sites healing without sign and symptoms of infection: ADMISSION and DAILY: Assess and document risk factors for pressure ulcer development TWICE DAILY: Assess and document skin integrity TWICE DAILY: Assess and document dressing/incision, wound bed, drain sites and surrounding tissue Problem: Infection - Adult Goal: Absence of infection at discharge Outcome: Progressing Flowsheets (Taken 04/20/2025105) Absence of infection at discharge: Assess and monitor for signs and symptoms of infection Monitor lab/diagnostic results Monitor all insertion sites i.e., indwelling lines, tubes and drains Administer medications as ordered * Assessment & Plan Note - Hakan Reyes PA-C - 04/19/2025 4:30 PM EDTAssociated Problem(s): Chest pain Relevant Hx: chest pain started last night with radiation to neck and jaw Course: ct at outside hospital showed a small pericardial effusion. Workup was negative for MA Daily Update: patient arrived from [facility]. Pain has improved to 2/10 Today's Plan: will continue to control pain as necessary. Cardiology consulted for investigation ofwatchman and other etiologies. Will continue to monitor. NPO for now. Echo showed signs of cardiac tamponade. Patient taken to heart cath with plan for possible pericardiocentesis. * Assessment & Plan Note - Hakan Reyes PA-C - 04/19/2025 4:30 PM EDTAssociated Problem(s): Pericardial effusion Relevant Hx: chest pain started last night with radiation to neck and jaw Course: ct at outside hospital showed a small pericardial effusion. Workup was negative for MA Daily Update: patient arrived from [facility]. Pain has improved to 2/10 Today's Plan: will continue to control pain as necessary. Cardiology consulted for investigation ofwatchman and other etiologies. Will continue to monitor. NPO for now. Echo showed signs of cardiac tamponade. Patient taken to heart cath with plan for possible pericardiocentesis. * Individualized Overall Plan of Care Note - Kaiden Rain MD - 04/19/2025 3:38 PM EDT Case was discussed with the BECKY on 04/19/2025. I agree with the history, physical, assessment, and plan of care. I discussed the findings and therapeutic plan. I agree with the documentation, except for any updates below. Unable to see patient today as TTE showed concern for tamponade after which patient brought to cathlab for R/LHC and possible pericardiocentesis. Appreciate Cardiology service. Kaiden Rain MD * Pre-Sedation Documentation - Benedict Christopher MD - 04/19/2025 2:16 PM EDT Patient: Kristy Doherty Procedure Information Date/Time: 04/19/25 1445 Procedures: Left heart cath Right heart cath Pericardiocentesis Location: [facility] / [facility] (Cath) Providers: Venu Samaniego MD Clinical information reviewed: Allergies Meds Physical Exam Airway Mallampati: III TM distance: >3 FB Neck ROM: full Cardiovascular Rhythm: regular Dental Pulmonary Neurological Abdominal Anesthesia Plan ASA 3 other (Conscious sedation) intravenous induction Anesthetic plan and risks discussed with patient. Use of blood products discussed with patient who consented to blood products. Plan discussed with attending and fellow. Additional Equipment Requests Cosigned by Venu Samaniego MD at 04/19/2025 2:27 PM EDT * Assessment & Plan Note - Hakan Reyes PA-C - 04/19/2025 1:19 PM EDTAssociated Problem(s): Hyponatremia Sodium 126 Will continue to monitor Urine sodium and serum osmolality ordered * Assessment & Plan Note - Hakan Reyes PA-C - 04/19/2025 12:47 PM EDTAssociated Problem(s): Atrial fibrillation (CMS/HCC) atrial fibrillation status post Watchman Will continue aspirin and plavix Will continue to monitor * Assessment & Plan Note - Hakan Reyes PA-C - 04/19/2025 12:47 PM EDTAssociated Problem(s): Uncomplicated asthma Restarted patients albuterol and switched from his Advair to our equivalent * Assessment & Plan Note - Hakan Reyes PA-C - 04/19/2025 12:47 PM EDTAssociated Problem(s): Primary hypertension Patient states he has been hypotensive for two weeks Holding antihypertensives for now Will continue to monitor patients blood pressure * Assessment & Plan Note - Hakan Reyes PA-C - 04/19/2025 12:47 PM EDTAssociated Problem(s): 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 EF range is estimated at 25 % -30 %. Left ventricular wall thickness is increased. Diffuse global hypokinesis. Will continue farxiga. Holding remaining GDMT due to hypotension AICD present Will monitor intake and output as well as daily weight checks. * Assessment & Plan Note - Hakan Reyes PA-C - 04/19/2025 12:47 PM EDTAssociated Problem(s): Heart failure with reduced ejection fraction (CMS/HCC) Nonischemic cardiomyopathy Last echo on 02/07 showed Global left ventricular systolic function is severely reduced. EF range is estimated at 25 % -30 %. Left ventricular wall thickness is increased. Diffuse global hypokinesis. Will continue farxiga. Holding remaining GDMT due to hypotension AICD present Will monitor intake and output as well as daily weight checks. * Assessment & Plan Note - Hakan Reyes PA-C - 04/19/2025 12:47 PM EDTAssociated Problem(s): ICD (implantable cardioverter-defibrillator) in place Nonischemic cardiomyopathy Last echo on 02/07 showed Global left ventricular systolic function is severely reduced. EF range is estimated at 25 % -30 %. Left ventricular wall thickness is increased. Diffuse global hypokinesis. Will continue farxiga. Holding remaining GDMT due to hypotension AICD present Will monitor intake and output as well as daily weight checks. * Care Plan - Karrie Garza RN - 04/19/2025 10:44 AM EDT The patient is Moderately Stable - Low risk of patient condition declining or worsening The patient's goals for the shift include Neck/Chest pain The clinical goals for the shift include stable vital signs documented in this encounter Plan of Treatment Upcoming Encounters Date Type Department Care Team (Late st Contact Info) Description 05/14/2025 1:40 PM EDT Office Visit [facility] [address] [place] [address] Elliott Nettles, [employer] [address] [place] [address] Pending Results Name Type Priority Associated Diagnoses Date /Time Cardiac event monitor Cardiac Services Routine Paroxysmal atrial fibrillation (CMS/HCC) PVC (premature ventricular contraction) 05/04/2025 4:04 PM EDT Scheduled Orders Name Type Priority Associated Diagnoses Orde r Schedule Cardiac event monitor Cardiac Services Routine Paroxysmal atrial fibrillation (CMS/HCC) PVC (premature ventricular contraction) Once for 1 Occurrences starting 04/24/2025 until 04/24/2025 CBC Lab Routine Hematoma of intravenous catheter site, sequela Expected: 05/11/2025 (Approximate), Expires: 05/04/2026 Basic metabolic panel Lab Routine Hyponatremia Expected: 05/11/2025 (Approximate), Expires: 05/04/2026 Scheduled Referrals Name Type Priority Associated Diagnoses Order Schedule Ambulatory referral to Cardiac Rehab Outpatient Referral Routine Heart failure with reduced ejection fraction (CMS/HCC) Expected: 05/03/2025 (Approximate), Expires: 11/01/2025 documented as of this encounter Procedures Procedure Name Priority Date/Time Associated Diagnosis Comments CBC WITH AUTO DIFFERENTIAL Routine 05/04/2025 4:18 AM EDT CBC AND DIFFERENTIAL Routine 05/04/2025 4:18 AM EDT PHOSPHORUS Routine 05/04/2025 4:18 AM EDT MAGNESIUM Routine 05/04/2025 4:18 AM EDT BASIC METABOLIC PANEL Add-On 05/04/2025 4:18 AM EDT US NECK Routine 05/03/2025 3:56 PM EDT BODY FLUID CULTURE Routine 05/03/2025 12:59 PM EDT RESPIRATORY ASSESS AND TREAT PROTOCOL Routine 05/03/2025 8:00 AM EDT CBC WITH AUTO DIFFERENTIAL Routine 05/03/2025 3:51 AM EDT CBC AND DIFFERENTIAL Routine 05/03/2025 3:51 AM EDT PHOSPHORUS Routine 05/03/2025 3:51 AM EDT MAGNESIUM Routine 05/03/2025 3:51 AM EDT BASIC METABOLIC PANEL Add-On 05/03/2025 3:51 AM EDT RESPIRATORY ASSESS AND TREAT PROTOCOL Routine 05/02/2025 8:00 AM EDT CBC WITH AUTO DIFFERENTIAL Routine 05/02/2025 3:13 AM EDT CBC AND DIFFERENTIAL Routine 05/02/2025 3:13 AM EDT PHOSPHORUS Routine 05/02/2025 3:13 AM EDT MAGNESIUM Routine 05/02/2025 3:13 AM EDT COMPREHENSIVE METABOLIC PANEL Routine 05/02/2025 3:13 AM EDT PHOSPHORUS Timed 05/01/2025 8:30 AM EDT MAGNESIUM Timed 05/01/2025 8:30 AM EDT BASIC METABOLIC PANEL Timed 05/01/2025 8:30 AM EDT RESPIRATORY ASSESS AND TREAT PROTOCOL Routine 05/01/2025 8:00 AM EDT CBC WITH AUTO DIFFERENTIAL Routine 05/01/2025 3:05 AM EDT CBC AND DIFFERENTIAL Routine 05/01/2025 3:05 AM EDT PHOSPHORUS Add-On 05/01/2025 3:05 AM EDT MAGNESIUM Add-On 05/01/2025 3:05 AM EDT COMPREHENSIVE METABOLIC PANEL Routine 05/01/2025 3:05 AM EDT PHOSPHORUS Timed 05/01/2025 12:47 AM EDT MAGNESIUM Timed 05/01/2025 12:47 AM EDT BASIC METABOLIC PANEL Timed 05/01/2025 12:47 AM EDT PHOSPHORUS Timed 04/30/2025 8:12 PM EDT MAGNESIUM Timed 04/30/2025 8:12 PM EDT BASIC METABOLIC PANEL Timed 04/30/2025 8:12 PM EDT PHOSPHORUS Pending Discharge 04/30/2025 3:22 PM EDT MAGNESIUM Pending Discharge 04/30/2025 3:22 PM EDT BASIC METABOLIC PANEL Pending Discharge 04/30/2025 3:22 PM EDT PHOSPHORUS Pending Discharge 04/30/2025 11:13 AM EDT MAGNESIUM Pending Discharge 04/30/2025 11:13 AM EDT BASIC METABOLIC PANEL Pending Discharge 04/30/2025 11:13 AM EDT LIMITED ECHOCARDIOGRAM (TTE) W/ LTD DOPPLER AND COLOR FLOW Routine 04/30/2025 8:35 AM EDT RESPIRATORY ASSESS AND TREAT PROTOCOL Routine 04/30/2025 8:00 AM EDT PHOSPHORUS Pending Discharge 04/30/2025 7:48 AM EDT MAGNESIUM Pending Discharge 04/30/2025 7:48 AM EDT BASIC METABOLIC PANEL Pending Discharge 04/30/2025 7:48 AM EDT CBC WITH AUTO DIFFERENTIAL Pending Discharge 04/30/2025 4:10 AM EDT CBC AND DIFFERENTIAL Routine 04/30/2025 4:10 AM EDT PHOSPHORUS Pending Discharge 04/30/2025 4:10 AM EDT MAGNESIUM Pending Discharge 04/30/2025 4:10 AM EDT COMPREHENSIVE METABOLIC PANEL Pending Discharge 04/30/2025 4:10 AM EDT PHOSPHORUS Pending Discharge 04/30/2025 12:09 AM EDT MAGNESIUM Pending Discharge 04/30/2025 12:09 AM EDT BASIC METABOLIC PANEL Pending Discharge 04/30/2025 12:09 AM EDT PHOSPHORUS Pending Discharge 04/29/2025 8:02 PM EDT MAGNESIUM Pending Discharge 04/29/2025 8:02 PM EDT BASIC METABOLIC PANEL Pending Discharge 04/29/2025 8:02 PM EDT BLOOD GAS, VENOUS Pending Discharge 04/29/2025 3:38 PM EDT PHOSPHORUS Pending Discharge 04/29/2025 3:38 PM EDT MAGNESIUM Pending Discharge 04/29/2025 3:38 PM EDT BASIC METABOLIC PANEL Pending Discharge 04/29/2025 3:38 PM EDT PHOSPHORUS Pending Discharge 04/29/2025 1:02 PM EDT MAGNESIUM Pending Discharge 04/29/2025 1:02 PM EDT BASIC METABOLIC PANEL Pending Discharge 04/29/2025 1:02 PM EDT XR CHEST 1 VIEW Routine 04/29/2025 11:20 AM EDT IRON AND TIBC Add-On 04/29/2025 8:14 AM EDT PHOSPHORUS Pending Discharge 04/29/2025 8:14 AM EDT MAGNESIUM Pending Discharge 04/29/2025 8:14 AM EDT FERRITIN Add-On 04/29/2025 8:14 AM EDT BASIC METABOLIC PANEL Pending Discharge 04/29/2025 8:14 AM EDT RESPIRATORY ASSESS AND TREAT PROTOCOL Routine 04/29/2025 8:00 AM EDT CBC WITH AUTO DIFFERENTIAL Pending Discharge 04/29/2025 3:04 AM EDT CBC AND DIFFERENTIAL Routine 04/29/2025 3:04 AM EDT PHOSPHORUS Pending Discharge 04/29/2025 3:04 AM EDT MAGNESIUM Pending Discharge 04/29/2025 3:04 AM EDT BASIC METABOLIC PANEL Pending Discharge 04/29/2025 3:04 AM EDT AMMONIA Pending Discharge 04/29/2025 2:38 AM EDT COMPREHENSIVE METABOLIC PANEL Pending Discharge 04/29/2025 2:38 AM EDT CRRT THERAPY FLUID RESET Routine 12:30 AM EDT PHOSPHORUS Pending Discharge 04/29/2025 12:22 AM EDT MAGNESIUM Pending Discharge 04/29/2025 12:22 AM EDT BASIC METABOLIC PANEL Pending Discharge 04/29/2025 12:22 AM EDT PHOSPHORUS Pending Discharge 04/28/2025 8:10 PM EDT MAGNESIUM Pending Discharge 04/28/2025 8:10 PM EDT BASIC METABOLIC PANEL Pending Discharge 04/28/2025 8:10 PM EDT PHOSPHORUS Pending Discharge 04/28/2025 3:57 PM EDT MAGNESIUM Pending Discharge 04/28/2025 3:57 PM EDT COMPREHENSIVE METABOLIC PANEL Pending Discharge 04/28/2025 3:57 PM EDT PHOSPHORUS Pending Discharge 04/28/2025 1:46 PM EDT MAGNESIUM Pending Discharge 04/28/2025 1:46 PM EDT BASIC METABOLIC PANEL Pending Discharge 04/28/2025 1:46 PM EDT POCT GLUCOSE METER UNSOLICITED RESULTS Routine 04/28/2025 1:44 PM EDT ABG UNSOLICITED RESULTS Routine 04/28/20 8:54 AM EDT PHOSPHORUS Pending Discharge 04/28/2025 8:37 AM EDT MAGNESIUM Pending Discharge 04/28/2025 8:37 AM EDT BASIC METABOLIC PANEL Pending Discharge 04/28/2025 8:37 AM EDT ABG POCT Routine 04/28/2025 8:19 AM EDT RESPIRATORY ASSESS AND TREAT PROTOCOL Routine 04/28/2025 8:00 AM EDT CBC Pending Discharge 04/28/2025 3:21 AM EDT RESPIRATORY ASSESS AND TREAT PROTOCOL Routine 04/28/2025 3:10 AM EDT PHOSPHORUS Add-On 04/28/2025 3:06 AM EDT MAGNESIUM Add-On 04/28/2025 3:06 AM EDT BASIC METABOLIC PANEL Pending Discharge 04/28/2025 3:06 AM EDT XR ABDOMEN 1 VIEW STAT 04/28/2025 12:50 AM EDT CRRT THERAPY FLUID RESET Routine 025 12:30 AM EDT PHOSPHORUS Timed 04/28/2025 12:06 AM EDT MAGNESIUM Timed 04/28/2025 12:06 AM EDT BASIC METABOLIC PANEL Timed 04/28/2025 12:06 AM EDT HEMOGLOBIN AND HEMATOCRIT, BLOOD Routine 04/27/2025 7:57 PM EDT MAGNESIUM Add-On 04/27/2025 7:57 PM EDT BASIC METABOLIC PANEL Routine 04/27/2025 7:57 PM EDT CRRT THERAPY FLUID RESET Routine 025 6:18 PM EDT PHOSPHORUS Timed 04/27/2025 5:38 PM EDT MAGNESIUM Timed 04/27/2025 5:38 PM EDT BASIC METABOLIC PANEL Timed 04/27/2025 5:38 PM EDT POCT GLUCOSE METER UNSOLICITED RESULTS Routine 04/27/2025 5:14 PM EDT POCT GLUCOSE METER UNSOLICITED RESULTS Routine 04/27/2025 12:01 PM EDT POCT GLUCOSE METER UNSOLICITED RESULTS Routine 04/27/2025 10:07 AM EDT CBC Routine 04/27/2025 5:36 AM EDT PHOSPHORUS Timed 04/27/2025 5:36 AM EDT MAGNESIUM Timed 04/27/2025 5:36 AM EDT BASIC METABOLIC PANEL Timed 04/27/2025 5:36 AM EDT CO-OXIMETRY Routine 04/27/2025 4:25 AM EDT PHOSPHORUS Timed 04/26/2025 11:59 PM EDT MAGNESIUM Timed 04/26/2025 11:59 PM EDT BASIC METABOLIC PANEL Timed 04/26/2025 11:59 PM EDT PHOSPHORUS Timed 04/26/2025 4:24 PM EDT MAGNESIUM Timed 04/26/2025 4:24 PM EDT BASIC METABOLIC PANEL Timed 04/26/2025 4:24 PM EDT UREA NITROGEN, URINE Pending Discharge 04/26/2025 8:40 AM EDT SODIUM, URINE, RANDOM Pending Discharge 04/26/2025 8:40 AM EDT CREATININE, URINE, RANDOM Pending Discharge 04/26/2025 8:40 AM EDT URINALYSIS Pending Discharge 04/26/2025 8:40 AM EDT CBC Routine 04/26/2025 3:05 AM EDT PHOSPHORUS Routine 04/26/2025 3:05 AM EDT MAGNESIUM Routine 04/26/2025 3:05 AM EDT BASIC METABOLIC PANEL Routine 04/26/2025 3:05 AM EDT CO-OXIMETRY Routine 04/26/2025 2:39 AM EDT XR CHEST 1 VIEW STAT 04/25/2025 4:17 PM EDT BASIC METABOLIC PANEL Pending Discharge 04/25/2025 1:12 PM EDT CBC Pending Discharge 04/25/2025 3:22 AM EDT PHOSPHORUS Pending Discharge 04/25/2025 3:22 AM EDT MAGNESIUM Pending Discharge 04/25/2025 3:22 AM EDT BASIC METABOLIC PANEL Pending Discharge 04/25/2025 3:22 AM EDT SWAN (FLOW DIRECTED CATH) INSERTION Routine 04/24/2025 3:42 PM EDT Right ventricular dysfunction RIGHT HEART CATH Routine 04/24/2025 3:42 PM EDT Right ventricular dysfunction CBC Pending Discharge 04/24/2025 4:07 AM EDT MAGNESIUM Pending Discharge 04/24/2025 4:07 AM EDT LIPID PANEL Add-On 04/24/2025 4:07 AM EDT BASIC METABOLIC PANEL Pending Discharge 04/24/2025 4:07 AM EDT CTA CHEST W IV CONTRAST STAT 04/23/20 4:47 PM EDT LIMITED ECHOCARDIOGRAM (TTE) W/ LTD DOPPLER AND COLOR FLOW Routine 04/23/2025 7:56 AM EDT CBC WITH AUTO DIFFERENTIAL Pending Discharge 04/23/2025 5:02 AM EDT CBC AND DIFFERENTIAL Routine 04/23/2025 5:02 AM EDT C-REACTIVE PROTEIN Pending Discharge 04/23/2025 5:02 AM EDT MAGNESIUM STAT 04/23/2025 5:02 AM EDT COMPREHENSIVE METABOLIC PANEL STAT 04/23/2025 5:[address] CERVICAL SPINE WO IV CONTRAST STAT 04/23/2025 3:[address] HEAD WO IV CONTRAST STAT 3:59 AM EDT ECG 12-LEAD STAT 04/23/2025 3:34 AM EDT LIMITED ECHOCARDIOGRAM (TTE) W/ LTD DOPPLER AND COLOR FLOW Routine 04/20/2025 1:51 PM EDT OSMOLALITY Routine 04/20/2025 12:25 PM EDT BLOOD CULTURE Routine 04/20/2025 10:09 AM EDT BLOOD CULTURE Routine 04/20/2025 10:09 AM EDT CBC Routine 04/20/2025 5:15 AM EDT CORTISOL STAT Add-on 04/20/2025 5:15 AM EDT BASIC METABOLIC PANEL Routine 04/20/2025 5:15 AM EDT SODIUM, URINE, RANDOM Routine 04/19/2025 8:28 PM EDT ECG 12-LEAD Routine 04/19/2025 6:35 PM EDT OSMOLALITY Routine 04/19/2025 6:26 PM EDT B-TYPE NATRIURETIC PEPTIDE Routine 04/19/2025 6:25 PM EDT LIMITED ECHO (TTE) Routine 04/19/2025 3: 37 PM EDT PATHOLOGY REVIEW Routine 04/19/2025 3:23 PM EDT BODY FLUID CELL DIFFERENTIAL Routine 04/19/2025 3:23 PM EDT BODY FLUID CELL COUNT WITH DIFFERENTIAL Routine 04/19/2025 3:23 PM EDT BODY FLUID CULTURE AND ANAEROBIC CULTURE Routine 04/19/2025 3:23 PM EDT BODY FLUID CULTURE Routine 04/19/2025 3: 23 PM EDT ANAEROBIC CULTURE Routine 04/19/2025 3:2 3 PM EDT BODY FLUID CELL COUNT WITH DIFFERENTIAL Routine 04/19/2025 3:23 PM EDT NON-PEOPLESOFT FSCM DEVELOPER CYTOLOGY - CELLULAR EXAM Routine 04/19/2025 3:23 PM EDT PERICARDIOCENTESIS Routine 04/19/2025 3: 22 PM EDT Pericardial effusion RIGHT HEART CATH Routine 04/19/2025 3:22 PM EDT Pericardial effusion LEFT HEART CATH Routine 04/19/2025 3:22 PM EDT Pericardial effusion POCT HBO2% Routine 04/19/2025 2:47 PM EDT POCT HBO2% Routine 04/19/2025 2:47 PM EDT LIGHT GREEN TOP Routine 04/19/2025 2:44 PM EDT C-REACTIVE PROTEIN Routine 04/19/2025 2: 44 PM EDT COLLIN Routine 04/19/2025 2:44 PM EDT EXTRA TUBES Routine 04/19/2025 2:32 PM EDT LAVENDER TOP Routine 04/19/2025 2:32 PM EDT COMPLETE ECHO (TTE) Routine 04/19/2025 1 :13 PM EDT HIGH SENSITIVITY TROPONIN I Add-On 04/19/2025 12:14 PM EDT SEDIMENTATION RATE Add-On 04/19/2025 12:14 PM EDT CBC Routine 04/19/2025 12:14 PM EDT COMPREHENSIVE METABOLIC PANEL Routine 04/19/2025 12:14 PM EDT ECG 12-LEAD Routine 04/19/2025 12:09 PM EDT documented in this encounter Results * (ABNORMAL) Basic metabolic panel (05/04/2025 4:18 AM EDT) Sodium 128(L) 136 - 145 mmol/L 05/04/2025 9:10 AM EDT [facility] ([facility]) Potassium 3.7 3.5 - 5.1 mmol/L 05/04/2025 9:10 AM EDT [facility] ([facility]) Chloride 94(L) 98 - 107 mmol/L 05/04/2025 9:10 AM EDT [facility] ([facility]) CO2 23 21 - 31 mmol/L 05/04/2025 9:10 AM EDT [facility] ([facility]) BUN 25 7 - 25 mg/dL 05/04/2025 9:10 AM EDT [facility] ([facility]) Creatinine 1.58(H) 0.70 - 1.30 mg/dL 05/04/2025 9:10 AM EDT [facility] ([facility]) Glucose 81 70 - 100 mg/dL 05/04/2025 9:10 AM EDT [facility] ([facility]) Calcium 7.3(L) 8.6 - 10.3 mg/dL 05/04/2025 9:10 AM EDT [facility] ([facility]) Anion Gap 15 7 - 20 mmol/L 05/04/2025 9:10 AM EDT [facility] ([facility]) eGFR 47.1(L) >60.0 mL/min/1. 73m*2 05/04/2025 9:10 AM EDT [facility] ([facility]) Comment:[facility] s estimated glomerular filtration rate (eGFR) will [...] any one group of individuals. BUN/Creatinine Ratio 15.8 04/18 9:10 AM EDT [facility] ([facility]) Blood Venous blood specimen / Unknown Venipuncture / Unknown 05/04/2025 4:18 AM EDT 05/04/2025 4:46 AM EDT us Benedict Pascual MD LAB BLOOD ORDERABLES Final Resul t [facility] ([facility]) [address] [place] [address] * (ABNORMAL) CBC auto differential (05/04/2025 4:18 AM EDT) Auto WBC 6.04 4.00 - 10.60 10*3/uL 05/04/2025 5:15 AM EDT [facility] ([facility]) RBC 3.10(L) 4.20 - 5.70 10*6/uL 05/04/2025 5:15 AM EDT [facility] ([facility]) Hemoglobin 9.8(L) 13.0 - 17.0 g/dL 05/04/2025 5:15 AM EDT [facility] ([facility]) Hematocrit 28.3(L) 39.0 - 50.0 % 05/04/2025 5:15 AM EDT [facility] ([facility]) MCV 91.3 82.0 - 98.0 fL 05/04/2025 5:15 AM EDT [facility] ([facility]) MCH 31.6 27.0 - 33.0 pg 05/04/2025 5:15 AM EDT [facility] ([facility]) MCHC 34.6 32.0 - 35.0 g/dL 05/04/2025 5:15 AM EDT [facility] ([facility]) RDW 14.7 11.5 - 15.0 % 05/04/2025 5:15 AM T [facility] ([facility]) Neutrophils % 70.4 40.0 - 72.0 % 05/04/2025 5:15 AM T [facility] ([facility]) Lymphocytes % 14.2(L) 20.0 - 45.0 % 05/04/2025 5:15 AM EDT [facility] ([facility]) Monocytes % 14.2(H) 5.0 - 12.0 % 05/04/2025 5:15 AM T [facility] ([facility]) Eosinophils % 0.5 0.0 - 6.0 % 05/04/2025 5:15 AM [facility] ([facility]) Basophils % 0.2 0.0 - 1.0 % 05/04/2025 5:15 AM T [facility] ([facility]) Neutrophils Absolute 4.25 1.60 - 7.60 10*3/uL 05/04/2025 5:15 AM EDT [facility] ([facility]) Lymphocytes Absolute 0.86(L) 1.20 - 4.00 10*3/uL 05/04/2025 5:15 AM EDT [facility] ([facility]) Monocytes Absolute 0.86 0.10 - 1.00 10*3/uL 05/04/2025 5:15 AM T [facility] ([facility]) Eosinophils Absolute 0.03 0.00 - 0.50 10*3/uL 05/04/2025 5:15 AM T [facility] ([facility]) Basophils Absolute 0.01 0.00 - 0.20 10*3/uL 05/04/2025 5:15 AM EDT [facility] ([facility]) Platelets 192 150 - 400 10*3/uL 05/04[facility]25 [facility] nRBC % 0.0 0 % 05/04/2025 5:15 AM T [facility] ([facility]) Immature Granulocytes % 0.5 0.0 - 1.0 % 05/04/2025 5:15 AM EDT [facility] ([facility]) Immature Granulocytes Absolute 0.03 0.00 - 0.20 10*3/uL 05/04/2025 5:15 AM EDT [facility] ([facility]) Blood Venous blood specimen / Unknown Venipuncture / Unknown 05/04/2025 4:18 AM EDT 05/04/2025 4:48 AM EDT Pepe Anthony MD LAB BLOOD ORDERABLES Final Resu lt [facility] ([facility]) [address] [place] [address] * Phosphorus (05/04/2025 4:18 AM EDT) Phosphorus 3.1 2.5 - 5.0 mg/dL 05/04/2025 5:[address] [facility] ([facility]) Blood Venous blood specimen / Unknown Venipuncture / Unknown 05/04/2025 4:18 AM EDT 05/04/2025 4:46 AM EDT Dg Power MD LAB BLOOD ORDERABLES Final Res ult Performing Organization Address City/[facility]/ZIP Co de Phone Number [facility] ([facility]) [address] [place] [address] * Magnesium (05/04/2025 4:18 AM EDT) Magnesium 2.0 1.9 - 2.7 mg/dL 05/04/2025 5:12 AM EDT [facility]) Blood Venous blood specimen / Unknown Venipuncture / Unknown 05/04/2025 4:18 AM EDT 05/04/2025 4:46 AM EDT Dg Power MD LAB BLOOD ORDERABLES Final Res ult [facility] ([facility]) [address] [place] [address] * US neck (05/03/2025 3:56 PM EDT) Anatomical Region Laterality Modality Head, Neck Ultrasound 05/04/2025 6:21 AM EDT Impressions 05/04/2025 6:23 AM EDT * No measurable abnormality, however, there appears to be some ill-defined hypoechoic tissue in the neck which could relate to soft tissue edema, hematoma not excluded. Consider cross-sectional imaging and duplex vascular ultrasound as indicated. Electronically signed: Virgilio Barillas MD. Narrative 05/04/2025 6:23 AM EDT US NECK Clinical information: Neck swelling. Pain. Comparison: None. Procedure Note Virgilio Barillas MD - 05/04/2025 US NECK Clinical information: Neck swelling. Pain. Comparison: None. IMPRESSION: *No measurable abnormality, however, there appears to be someill-defined hypoechoic tissue in the neck which could relate to soft tissue edema,hematoma not excluded. Consider cross-sectional imaging and duplex vascularultrasound as indicated. Electronically signed: Virgilio Barillas MD. us Benedict Pascual MD IMG US PROCEDURES Final Result * (ABNORMAL) Body fluid culture (05/03/2025 12:59 PM EDT) Culture Light Growth Staphylococcus lugdunensis(A) FLORA 05/05/2025 7:07 AM EDT [facility] ([facility]) Comment: Gram Stain Result Moderate Polymorphonuclear leukocytes 05/05/2025 7:07 AM EDT [facility] ([facility]) Gram Stain Result No organisms seen 05/05/2025 7:07 AM EDT [facility] ([facility]) Fluid Neck structure / Unknown Non-blood Collection / Unknown 05/03/2025 12:59 PM EDT 05/03/2025 1:20 PM EDT Narrative [facility] ([facility]) - 05/05/2025 7:07 AM EDT Rare Growth Skin Darlyn Organism Antibiotic Method Susceptibility Staphylococcus lugdunensis Clindamycin FLORA <=0.5 ug/ml: Susceptible Staphylococcus lugdunensis Oxacillin FLORA <=0.25 ug/ml: Susceptible Staphylococcus lugdunensis Tetracycline FLORA <=0.5 ug/ml: Susceptible Staphylococcus lugdunensis Vancomycin FLORA <=0.5 ug/ml: Susceptible Benedict Pascual MD LAB MICROBIOLOGY - GENERAL ORDER JAY Final Result [facility] ([facility]) [address] [place] [address] * (ABNORMAL) Basic metabolic panel (05/03/2025 3:51 AM EDT) Sodium 129(L) 136 - 145 mmol/L 05/03/2025 6:21 AM EDT [facility] ([facility]) Potassium 4.1 3.5 - 5.1 mmol/L 05/03/2025 6:21 AM EDT [facility] ([facility]) Chloride 94(L) 98 - 107 mmol/L 05/03/2025 6:21 AM EDT [facility] ([facility]) CO2 25 21 - 31 mmol/L 05/03/2025 6:21 AM EDT [facility] ([facility]) BUN 24 7 - 25 mg/dL 05/03/2025 6:21 AM EDT [facility] ([facility]) Creatinine 1.75(H) 0.70 - 1.30 mg/dL 05/03/2025 6:21 AM EDT [facility] ([facility]) Glucose 89 70 - 100 mg/dL 05/03/2025 6:21 AM EDT [facility] ([facility]) Calcium 7.3(L) 8.6 - 10.3 mg/dL 05/03/2025 6:21 AM EDT [facility] ([facility]) Anion Gap 14 7 - 20 mmol/L 05/03/2025 6:21 AM EDT [facility] ([facility]) eGFR 41.6(L) >60.0 mL/min/1. 73m*2 05/03/2025 6:21 AM EDT [facility] ([facility]) Comment:[facility] s estimated glomerular filtration rate (eGFR) will [...] any one group of individuals. BUN/Creatinine Ratio 13.7 04/18 6:21 AM EDT [facility] ([facility]) Blood Venous blood specimen / Unknown Venipuncture / Unknown 05/03/2025 3:51 AM EDT 05/03/2025 4:14 AM EDT us Dg Power MD LAB BLOOD ORDERABLES Final Res ult [facility] ([facility]) [address] [place] [address] * (ABNORMAL) CBC auto differential (05/03/2025 3:51 AM EDT) Auto WBC 6.22 4.00 - 10.60 10*3/uL 05/03/2025 4:31 AM EDT [facility] ([facility]) RBC 2.95(L) 4.20 - 5.70 10*6/uL 05/03/2025 4:31 AM EDT [facility] ([facility]) Hemoglobin 9.2(L) 13.0 - 17.0 g/dL 05/03/2025 4:31 AM EDT [facility] ([facility]) Hematocrit 27.4(L) 39.0 - 50.0 % 05/03/2025 4:31 AM EDT [facility] ([facility]) MCV 92.9 82.0 - 98.0 fL 05/03/2025 4:31 AM EDT [facility] ([facility]) MCH 31.2 27.0 - 33.0 pg 05/03/2025 4:31 AM EDT [facility] ([facility]) MCHC 33.6 32.0 - 35.0 g/dL 05/03/2025 4:31 AM [facility] ([facility]) RDW 14.9 11.5 - 15.0 % 05/03/2025 4:31 AM [facility] ([facility]) Neutrophils % 66.0 40.0 - 72.0 % 05/03/2025 4:31 AM [facility] ([facility]) Lymphocytes % 15.8(L) 20.0 - 45.0 % 05/03/2025 4:31 AM [facility] ([facility]) Monocytes % 16.1(H) 5.0 - 12.0 % 05/03/2025 4:31 AM [facility] ([facility]) Eosinophils % 0.8 0.0 - 6.0 % 05/03/2025 4:31 AM [facility] ([facility]) Basophils % 0.2 0.0 - 1.0 % 05/03/2025 4:31 AM [facility] ([facility]) Neutrophils Absolute 4.11 1.60 - 7.60 10*3/uL 05/03/2025 4:31 AM [facility] ([facility]) Lymphocytes Absolute 0.98(L) 1.20 - 4.00 10*3/uL 05/03/2025 4:31 AM [facility] ([facility]) Monocytes Absolute 1.00 0.10 - 1.00 10*3/uL 05/03/2025 4:31 AM [facility] ([facility]) Eosinophils Absolute 0.05 0.00 - 0.50 10*3/uL 05/03/2025 4:31 AM [facility] ([facility]) Basophils Absolute 0.01 0.00 - 0.20 10*3/uL 05/03/2025 4:31 AM [facility] ([facility]) Platelets 187 150 - 400 10*3/uL 05/03/2025 4:31 AM [facility] ([facility]) nRBC % 0.0 0 % 05/03/2025 4:31 AM [facility] ([facility]) Immature Granulocytes % 1.1(H) 0.0 - 1.0 % 05/03/2025 4:31 AM EDT [facility] ([facility]) Immature Granulocytes Absolute 0.07 0.00 - 0.20 10*3/uL 05/03/2025 4:31 AM EDT [facility] ([facility]) Blood Venous blood specimen / Unknown Venipuncture / Unknown 05/03/2025 3:51 AM EDT 05/03/2025 4:15 AM EDT Pepe Anthony MD LAB BLOOD ORDERABLES Final Resu lt Performing Organization Address City/[facility]/ZIP Co de Phone Number [facility] ([facility]) [address] [place] [address] * (ABNORMAL) Phosphorus (05/03/2025 3:51 AM EDT) Phosphorus 1.8(L) 2.5 - 5.0 mg/dL 05/03/2025 4:43 AM EDT [facility]) Blood Venous blood specimen / Unknown Venipuncture / Unknown 05/03/2025 3:51 AM EDT 05/03/2025 4:14 AM EDT Dg Power MD LAB BLOOD ORDERABLES Final Res ult Performing Organization Address [facility] Co de Phone Number [facility] ([facility]) [address] [place] [address] * (ABNORMAL) Magnesium (05/03/2025 3:51 AM EDT) Magnesium 1.8(L) 1.9 - 2.7 mg/dL 05/03/2025 4:43 AM EDT [facility]) Blood Venous blood specimen / Unknown Venipuncture / Unknown 05/03/2025 3:51 AM EDT 05/03/2025 4:14 AM EDT Dg Power MD LAB BLOOD ORDERABLES Final Res ult [facility] ([facility]) [address] [place] [address] * (ABNORMAL) CBC auto differential (05/02/2025 3:13 AM EDT) Auto WBC 5.94 4.00 - 10.60 10*3/uL 05/02/2025 3:29 AM EDT [facility] ([facility]) RBC 2.63(L) 4.20 - 5.70 10*6/uL 05/02/2025 3:29 AM EDT [facility] ([facility]) Hemoglobin 8.4(L) 13.0 - 17.0 g/dL 05/02/2025 3:29 AM EDT [facility] ([facility]) Hematocrit 24.6(L) 39.0 - 50.0 % 05/02/2025 3:29 AM EDT [facility] ([facility]) MCV 93.5 82.0 - 98.0 fL 05/02/2025 3:29 AM EDT [facility] ([facility]) MCH 31.9 27.0 - 33.0 pg 05/02/2025 3:29 AM EDT [facility] ([facility]) MCHC 34.1 32.0 - 35.0 g/dL 05/02/2025 3:29 AM EDT [facility] ([facility]) RDW 15.1(H) 11.5 - 15.0 % 05/02/2025 3:29 AM EDT [facility] ([facility]) Neutrophils % 67.0 40.0 - 72.0 % 05/02/2025 3:29 AM EDT [facility] ([facility]) Lymphocytes % 16.0(L) 20.0 - 45.0 % 05/02/2025 3:29 AM EDT [facility] ([facility]) Monocytes % 15.7(H) 5.0 - 12.0 % 05/02/2025 3:29 AM EDT [facility] ([facility]) Eosinophils % 0.3 0.0 - 6.0 % 05/02/2025 3:29 AM EDT [facility] ([facility]) Basophils % 0.2 0.0 - 1.0 % 05/02/2025 3:29 AM EDT [facility] ([facility]) Neutrophils Absolute 3.98 1.60 - 7.60 10*3/uL 05/02/2025 3:29 AM EDT [facility] ([facility]) Lymphocytes Absolute 0.95(L) 1.20 - 4.00 10*3/uL 05/02/2025 3:29 AM EDT [facility] ([facility]) Monocytes Absolute 0.93 0.10 - 1.00 10*3/uL 05/02/2025 3:29 AM EDT [facility] ([facility]) Eosinophils Absolute 0.02 0.00 - 0.50 10*3/uL 05/02/2025 3:29 AM EDT [facility] ([facility]) Basophils Absolute 0.01 0.00 - 0.20 10*3/uL 05/02/2025 3:29 AM EDT [facility] ([facility]) Platelets 153 150 - 400 10*3/uL 05/02/2025 3:[address] [facility] ([facility]) nRBC % 0.3(H) 0 % 05/02/2025 3:29 AM EDT [facility] ([facility]) Immature Granulocytes % 0.8 0.0 - 1.0 % 05/02/2025 3:[address] [facility] ([facility]) Immature Granulocytes Absolute 0.05 0.00 - 0.20 10*3/uL 05/02/2025 3:[address] [facility] ([facility]) Blood Venous blood specimen / Unknown Arterial Line / Unknown 05/02/2025 3:13 AM EDT 05/02/2025 3:22 AM EDT us Pepe Raj KLEIN LAB BLOOD ORDERABLES Final Resu lt [facility] ([facility]) [address] [place] [address] * Phosphorus (05/02/2025 3:13 AM EDT) Phosphorus 2.5 2.5 - 5.0 mg/dL 05/02/2025 4:00 AM EDT [facility] ([facility]) Blood Arterial blood specimen / Unknown Arterial Puncture / Unknown 05/02/2025 3:13 AM EDT 05/02/2025 3:19 AM EDT Dg Power MD LAB BLOOD ORDERABLES Final Res ult [facility]) [address] [place] [address] * (ABNORMAL) Magnesium (05/02/2025 3:13 AM EDT) Magnesium 1.8(L) 1.9 - 2.7 mg/dL 05/02/2025 4:00 AM EDT [facility] ([facility]) Blood Arterial blood specimen / Unknown Arterial Puncture / Unknown 05/02/2025 3:13 AM EDT 05/02/2025 3:19 AM EDT Dg Power MD LAB BLOOD ORDERABLES Final Res ult [facility] ([facility]) [address] [place] [id number] * (ABNORMAL) Comprehensive metabolic panel (05/02/2025 3:13 AM EDT) Sodium 133(L) 136 - 145 mmol/L 05/02/2025 4:00 AM EDT [facility] ([facility]) Potassium 3.1(L) 3.5 - 5.1 mmol/L 05/02/2025 4:00 AM EDT [facility] ([facility]) Chloride 93(L) 98 - 107 mmol/L 05/02/2025 4:00 AM EDT [facility] ([facility]) CO2 33(H) 21 - 31 mmol/L 05/02/2025 4:00 AM EDT [facility] ([facility]) Anion Gap 10 7 - 20 mmol/L 05/02/2025 4:00 AM EDT [facility] ([facility]) BUN 20 7 - 25 mg/dL 05/02/2025 4:00 AM [facility] ([facility]) Creatinine 1.69(H) 0.70 - 1.30 mg/dL 05/02/2025 4:00 AM [facility] ([facility]) BUN/Creatinine Ratio 11.8 04/18 4:00 AM [facility] ([facility]) Glucose 105(H) 70 - 100 mg/dL 05/02/2025 4:00 AM [facility] ([facility]) Calcium 7.3(L) 8.6 - 10.3 mg/dL 05/02/2025 4:00 AM [facility] ([facility]) AST 54(H) 13 - 39 U/L 05/02/2025 4:00 AM [facility] ([facility]) ALT (SGPT) 129(H) 7 - 52 U/L 05/02/2025 4:00 AM [facility] ([facility]) Alkaline Phosphatase 60 34 - 104 U/L 05/02/2025 4:00 AM [facility] ([facility]) Total Protein 5.4(L) 6.0 - 8.3 g/dL 05/02/2025 4:00 AM [facility] ([facility]) Albumin 3.1(L) 3.5 - 5.7 g/dL 05/02/2025 4:00 AM [facility] ([facility]) Total Bilirubin 0.7 0.3 - 1.0 mg/dL 05/02/2025 4:00 AM [facility] ([facility]) eGFR 43.4(L) >60.0 mL/min/1. 73m*2 05/02/2025 4:00 AM [facility] ([facility]) Comment:[facility] s estimated glomerular filtration rate (eGFR) will [...] disproportionately affect any one group of individuals. Blood Arterial blood specimen / Unknown Arterial Puncture / Unknown 05/02/2025 3:13 AM EDT 05/02/2025 3:19 AM EDT us Pepe Anthony MD LAB BLOOD ORDERABLES Final Resu lt Performing Organization Address City/[facility]/ZIP Co de Phone Number [facility] ([facility]) [address] [place] [address] * (ABNORMAL) Phosphorus (05/01/2025 8:30 AM EDT) Phosphorus 2.4(L) 2.5 - 5.0 mg/dL 05/01/2025 9:13 AM EDT [facility] ([facility]) Blood Arterial blood specimen / Unknown Arterial Puncture / Unknown 05/01/2025 8:30 AM EDT 05/01/2025 8:40 AM EDT us Pepe Anthony MD LAB BLOOD ORDERABLES Final Resu lt Performing Organization Address [facility]/ZIP Co de Phone Number [facility]) [address] [place] [address] * Magnesium (05/01/2025 8:30 AM EDT) Magnesium 1.9 1.9 - 2.7 mg/dL 05/01/2025 9:13 AM EDT [facility] ([facility]) Blood Arterial blood specimen / Unknown Arterial Puncture / Unknown 05/01/2025 8:30 AM EDT 05/01/2025 8:40 AM EDT us Pepe Anthony MD LAB BLOOD ORDERABLES Final Resu lt Performing Organization Address City/[facility]/ZIP Co de Phone Number [facility] ([facility]) [address] [place] [address] * (ABNORMAL) Basic metabolic panel (05/01/2025 8:30 AM EDT) Sodium 136 136 - 145 mmol/L 05/01/2025 9:13 AM [facility] ([facility]) Potassium 3.9 3.5 - 5.1 mmol/L 05/01/2025 9:13 AM [facility] ([facility]) Chloride 96(L) 98 - 107 mmol/L 05/01/2025 9:13 AM [facility] ([facility]) CO2 35(H) 21 - 31 mmol/L 05/01/2025 9:13 AM [facility] ([facility]) BUN 11 7 - 25 mg/dL 05/01/2025 9:13 AM [facility] ([facility]) Creatinine 1.01 0.70 - 1.30 mg/dL 05/01/2025 9:13 AM [facility] ([facility]) Glucose 99 70 - 100 mg/dL 05/01/2025 9:13 AM [facility] ([facility]) Calcium 7.7(L) 8.6 - 10.3 mg/dL 05/01/2025 9:13 AM [facility] ([facility]) Anion Gap 9 7 - 20 mmol/L 05/01/2025 9:13 AM [facility] ([facility]) eGFR 80.5 >60.0 mL/min/1. 73m*2 05/01/2025 9:13 AM [facility] ([facility]) Comment:[facility] s estimated glomerular filtration rate (eGFR) will [...] any one group of individuals. BUN/Creatinine Ratio 10.9 04/18 9:13 AM [facility] ([facility]) Blood Arterial blood specimen / Unknown Arterial Puncture / Unknown 05/01/2025 8:30 AM EDT 05/01/2025 8:40 AM EDT Pepe Anthony MD LAB BLOOD ORDERABLES Final Resu lt Performing Organization Address City/[facility]/ZIP Co de Phone Number [facility]) [address] [place] [address] * Phosphorus (05/01/2025 3:05 AM EDT) Phosphorus 2.6 2.5 - 5.0 mg/dL 05/01/2025 4:05 AM EDT [facility] ([facility]) Blood Arterial blood specimen / Unknown Arterial Puncture / Unknown 05/01/2025 3:05 AM EDT 05/01/2025 3:21 AM EDT us Dg Power MD LAB BLOOD ORDERABLES Final Res ult Performing Organization Address [facility]/ZIP Co de Phone Number [facility]) [address] [place] [address] * Magnesium (05/01/2025 3:05 AM EDT) Magnesium 2.0 1.9 - 2.7 mg/dL 05/01/2025 4:05 AM EDT [facility]) Blood Arterial blood specimen / Unknown Arterial Puncture / Unknown 05/01/2025 3:05 AM EDT 05/01/2025 3:21 AM EDT us Dg Power MD LAB BLOOD ORDERABLES Final Res ult Performing Organization Address City/[facility]/ZIP Co de Phone Number [facility]) [address] [place] [address] * (ABNORMAL) CBC auto differential (05/01/2025 3:05 AM EDT) Auto WBC 7.39 4.00 - 10.60 10*3/uL 05/01/2025 3:28 AM EDT [facility] ([facility]) RBC 2.67(L) 4.20 - 5.70 10*6/uL 05/01/2025 3:28 AM EDT [facility] ([facility]) Hemoglobin 8.6(L) 13.0 - 17.0 g/dL 05/01/2025 3:28 AM [facility] ([facility]) Hematocrit 25.1(L) 39.0 - 50.0 % 05/01/2025 3:28 AM EDT [facility] ([facility]) MCV 94.0 82.0 - 98.0 fL 05/01/2025 3:28 AM EDT [facility] ([facility]) MCH 32.2 27.0 - 33.0 pg 05/01/2025 3:28 AM [facility] ([facility]) MCHC 34.3 32.0 - 35.0 g/dL 05/01/2025 3:28 AM [facility] ([facility]) RDW 14.7 11.5 - 15.0 % 05/01/2025 3:28 AM T [facility] ([facility]) Neutrophils % 79.9(H) 40.0 - 72.0 % 05/01/2025 3:28 AM [facility] ([facility]) Lymphocytes % 6.8(L) 20.0 - 45.0 % 05/01/2025 3:28 AM [facility] ([facility]) Monocytes % 12.3(H) 5.0 - 12.0 % 05/01/2025 3:28 AM EDT [facility] ([facility]) Eosinophils % 0.0 0.0 - 6.0 % 05/01/2025 3:28 AM [facility] ([facility]) Basophils % 0.1 0.0 - 1.0 % 05/01/2025 3:28 AM T [facility] ([facility]) Neutrophils Absolute 5.90 1.60 - 7.60 10*3/uL 05/01/2025 3:28 AM [facility] ([facility]) Lymphocytes Absolute 0.50(L) 1.20 - 4.00 10*3/uL 05/01/2025 3:28 AM EDT [facility] ([facility]) Monocytes Absolute 0.91 0.10 - 1.00 10*3/uL 05/01/2025 3:28 AM EDT [facility] ([facility]) Eosinophils Absolute 0.00 0.00 - 0.50 10*3/uL 05/01/2025 3:28 AM EDT [facility] ([facility]) Basophils Absolute 0.01 0.00 - 0.20 10*3/uL 05/01/2025 3:28 AM EDT [facility] ([facility]) Platelets 159 150 - 400 10*3/uL 05/01/2025 3:28 AM EDT [facility] ([facility]) nRBC % 1.1(H) 0 % 05/01/2025 3:28 AM EDT [facility] ([facility]) Immature Granulocytes % 0.9 0.0 - 1.0 % 05/01/2025 3:28 AM EDT [facility] ([facility]) Immature Granulocytes Absolute 0.07 0.00 - 0.20 10*3/uL 05/01/2025 3:28 AM EDT [facility] ([facility]) Blood Venous blood specimen / Unknown Arterial Line / Unknown 05/01/2025 3:05 AM EDT 05/01/2025 3:21 AM EDT us Pepe Anthony MD LAB BLOOD ORDERABLES Final Resu lt [facility]) [address] [place] [address] * (ABNORMAL) Comprehensive metabolic panel (05/01/2025 3:05 AM EDT) Sodium 135(L) 136 - 145 mmol/L 05/01/2025 3:46 AM EDT [facility] ([facility]) Potassium 3.7 3.5 - 5.1 mmol/L 05/01/2025 3:46 AM EDT [facility] ([facility]) Chloride 94(L) 98 - 107 mmol/L 05/01/2025 3:46 AM EDT [facility] ([facility]) CO2 35(H) 21 - 31 mmol/L 05/01/2025 3:46 AM [facility] ([facility]) Anion Gap 10 7 - 20 mmol/L 05/01/2025 3:46 AM [facility] ([facility]) BUN 12 7 - 25 mg/dL 05/01/2025 3:46 AM [facility] ([facility]) Creatinine 1.04 0.70 - 1.30 mg/dL 05/01/2025 3:46 AM [facility] ([facility]) BUN/Creatinine Ratio 11.5 04/18 3:46 AM [facility] ([facility]) Glucose 115(H) 70 - 100 mg/dL 05/01/2025 3:46 AM [facility] ([facility]) Calcium 7.9(L) 8.6 - 10.3 mg/dL 05/01/2025 3:46 AM [facility] ([facility]) AST 86(H) 13 - 39 U/L 05/01/2025 3:46 AM [facility] ([facility]) ALT (SGPT) 182(H) 7 - 52 U/L 05/01/2025 3:46 AM [facility] ([facility]) Alkaline Phosphatase 65 34 - 104 U/L 05/01/2025 3:46 AM [facility] ([facility]) Total Protein 5.9(L) 6.0 - 8.3 g/dL 05/01/2025 3:46 AM [facility] ([facility]) Albumin 3.4(L) 3.5 - 5.7 g/dL 05/01/2025 3:46 AM [facility] ([facility]) Total Bilirubin 0.9 0.3 - 1.0 mg/dL 05/01/2025 3:46 AM [facility] ([facility]) eGFR 77.7 >60.0 mL/min/1. 73m*2 05/01/2025 3:46 AM [facility] ([facility]) Comment:[facility] s estimated glomerular filtration rate (eGFR) will [...] disproportionately affect any one group of individuals. Blood Arterial blood specimen / Unknown Arterial Puncture / Unknown 05/01/2025 3:05 AM EDT 05/01/2025 3:21 AM EDT us Pepe Anthony MD LAB BLOOD ORDERABLES Final Resu lt Performing Organization Address [facility]/ZIP Co de Phone Number [facility]) [address] [place] [address] * Phosphorus (05/01/2025 12:47 AM EDT) Phosphorus 2.7 2.5 - 5.0 mg/dL 05/01/2025 1:22 AM EDT [facility]) Blood Arterial blood specimen / Unknown Arterial Puncture / Unknown 05/01/2025 12:47 AM EDT 05/01/2025 12:59 AM EDT us Pepe Anthony MD LAB BLOOD ORDERABLES Final Resu lt Performing Organization Address [facility] Co de Phone Number [facility]) [address] [place] [address] * Magnesium (05/01/2025 12:47 AM EDT) Magnesium 2.1 1.9 - 2.7 mg/dL 05/01/2025 1:22 AM EDT [facility]) Blood Arterial blood specimen / Unknown Arterial Puncture / Unknown 05/01/2025 12:47 AM EDT 05/01/2025 12:59 AM EDT us Pepe Anthony MD LAB BLOOD ORDERABLES Final Resu lt [facility] ([facility]) [address] [place] [address] * (ABNORMAL) Basic metabolic panel (05/01/2025 12:47 AM EDT) Sodium 136 136 - 145 mmol/L 05/01/2025 1:22 AM EDT [facility] ([facility]) Potassium 3.8 3.5 - 5.1 mmol/L 05/01/2025 1:22 AM EDT [facility] ([facility]) Chloride 94(L) 98 - 107 mmol/L 05/01/2025 1:22 AM EDT [facility] ([facility]) CO2 35(H) 21 - 31 mmol/L 05/01/2025 1:22 AM EDT [facility] ([facility]) BUN 13 7 - 25 mg/dL 05/01/2025 1:22 AM EDT [facility] ([facility]) Creatinine 1.21 0.70 - 1.30 mg/dL 05/01/2025 1:22 AM EDT [facility] ([facility]) Glucose 113(H) 70 - 100 mg/dL 05/01/2025 1:22 AM EDT [facility] ([facility]) Calcium 7.8(L) 8.6 - 10.3 mg/dL 05/01/2025 1:22 AM EDT [facility] ([facility]) Anion Gap 11 7 - 20 mmol/L 05/01/2025 1:22 AM EDT [facility] ([facility]) eGFR 64.8 >60.0 mL/min/1. 73m*2 05/01/2025 1:22 AM EDT [facility] ([facility]) Comment:[facility] s estimated glomerular filtration rate (eGFR) will [...] any one group of individuals. BUN/Creatinine Ratio .7 04/18 1:22 AM EDT [facility] ([facility]) Blood Arterial blood specimen / Unknown Arterial Puncture / Unknown 05/01/2025 12:47 AM EDT 05/01/2025 12:59 AM EDT us Pepe Anthony MD LAB BLOOD ORDERABLES Final Resu lt [facility] ([facility]) [address] [place] [address] * (ABNORMAL) Phosphorus (04/30/2025 8:12 PM EDT) Phosphorus 2.2(L) 2.5 - 5.0 mg/dL 04/30/2025 8:46 PM EDT [facility]) Blood Arterial blood specimen / Unknown Arterial Puncture / Unknown 04/30/2025 8:12 PM EDT 04/30/2025 8:18 PM EDT us Pepe Anthony MD LAB BLOOD ORDERABLES Final Resu lt Performing Organization Address [facility]/ZIP Co de Phone Number [facility] ([facility]) [address] [place] [address] * (ABNORMAL) Magnesium (04/30/2025 8:12 PM EDT) Magnesium 1.8(L) 1.9 - 2.7 mg/dL 04/30/2025 8:46 PM EDT [facility] ([facility]) Blood Arterial blood specimen / Unknown Arterial Puncture / Unknown 04/30/2025 8:12 PM EDT 04/30/2025 8:18 PM EDT us Pepe Anthony MD LAB BLOOD ORDERABLES Final Resu lt Performing Organization Address City/[facility]/ZIP Co de Phone Number [facility]) [address] [place] [address] * (ABNORMAL) Basic metabolic panel (04/30/2025 8:12 PM EDT) Sodium 135(L) 136 - 145 mmol/L 04/30/2025 8:46 PM T [facility] ([facility]) Potassium 3.5 3.5 - 5.1 mmol/L 04/30/2025 8:46 PM [facility] ([facility]) Chloride 94(L) 98 - 107 mmol/L 04/30/2025 8:46 PM T [facility] ([facility]) CO2 34(H) 21 - 31 mmol/L 04/30/2025 8:46 PM [facility] ([facility]) BUN 14 7 - 25 mg/dL 04/30/2025 8:46 PM [facility] ([facility]) Creatinine 1.19 0.70 - 1.30 mg/dL 04/30/2025 8:46 PM [facility] ([facility]) Glucose 135(H) 70 - 100 mg/dL 04/30/2025 8:46 PM [facility] ([facility]) Calcium 7.9(L) 8.6 - 10.3 mg/dL 04/30/2025 8:46 PM [facility] ([facility]) Anion Gap 11 7 - 20 mmol/L 04/30/2025 8:46 PM [facility] ([facility]) eGFR 66.1 >60.0 mL/min/1. 73m*2 04/30/2025 8:46 PM [facility] ([facility]) Comment:[facility] s estimated glomerular filtration rate (eGFR) will [...] any one group of individuals. BUN/Creatinine Ratio 11.8 04/18 8:46 PM [facility] ([facility]) Blood Arterial blood specimen / Unknown Arterial Puncture / Unknown 04/30/2025 8:12 PM EDT 04/30/2025 8:18 PM EDT us Pepe Anthony MD LAB BLOOD ORDERABLES Final Resu lt [facility] ([facility]) [address] [place] [address] * (ABNORMAL) Phosphorus (04/30/2025 3:22 PM EDT) Phosphorus 2.3(L) 2.5 - 5.0 mg/dL 04/30/2025 4:00 PM EDT [facility] ([facility]) Blood Blood sample taken from central line / Unknown Arterial Puncture / Unknown 04/30/2025 3:22 PM EDT 04/30/2025 3:33 PM EDT us Pepe Anthony MD LAB BLOOD ORDERABLES Final Resu lt [facility]) [address] [place] [address] * Magnesium (04/30/2025 3:22 PM EDT) Magnesium 1.9 1.9 - 2.7 mg/dL 04/30/2025 4:[address] [facility] ([facility]) Blood Blood sample taken from central line / Unknown Arterial Puncture / Unknown 04/30/2025 3:22 PM EDT 04/30/2025 3:33 PM EDT us Pepe Anthony MD LAB BLOOD ORDERABLES Final Resu lt [facility] ([facility]) [address] [place] [address] * (ABNORMAL) Basic metabolic panel (04/30/2025 3:22 PM EDT) Sodium 134(L) 136 - 145 mmol/L 04/30/2025 4:00 PM [facility] ([facility]) Potassium 3.7 3.5 - 5.1 mmol/L 04/30/2025 4:00 PM [facility] ([facility]) Chloride 94(L) 98 - 107 mmol/L 04/30/2025 4:00 PM [facility] ([facility]) CO2 34(H) 21 - 31 mmol/L 04/30/2025 4:00 PM [facility] ([facility]) BUN 15 7 - 25 mg/dL 04/30/2025 4:00 PM [facility] ([facility]) Creatinine 1.22 0.70 - 1.30 mg/dL 04/30/2025 4:00 PM [facility] ([facility]) Glucose 141(H) 70 - 100 mg/dL 04/30/2025 4:00 PM [facility] ([facility]) Calcium 7.7(L) 8.6 - 10.3 mg/dL 04/30/2025 4:00 PM [facility] ([facility]) Anion Gap 10 7 - 20 mmol/L 04/30/2025 4:00 PM [facility] ([facility]) eGFR 64.2 >60.0 mL/min/1. 73m*2 04/30/2025 4:00 PM [facility] ([facility]) Comment:[facility] s estimated glomerular filtration rate (eGFR) will [...] any one group of individuals. BUN/Creatinine Ratio 12.3 04/18 4:00 PM [facility] ([facility]) Blood Blood sample taken from central line / Unknown Arterial Puncture / Unknown 04/30/2025 3:22 PM EDT 04/30/2025 3:33 PM EDT us Pepe Anthony MD LAB BLOOD ORDERABLES Final Resu lt [facility] ([facility]) [address] [place], [place] [id number] * (ABNORMAL) Phosphorus (04/30/2025 11:13 AM EDT) Phosphorus 1.7(L) 2.5 - 5.0 mg/dL 04/30/2025 12:11 PM EDT [facility] ([facility]) Blood Arterial blood specimen / Unknown Arterial Puncture / Unknown 04/30/2025 11:13 AM EDT 04/30/2025 11:32 AM EDT us Pepe Anthony MD LAB BLOOD ORDERABLES Final Resu lt Performing Organization Address City/[facility]/ZIP Co de Phone Number [facility] ([facility]) [address] [place], [place] [id number] * Magnesium (04/30/2025 11:13 AM EDT) Magnesium 1.9 1.9 - 2.7 mg/dL 04/30/2025 12:11 PM EDT [facility] ([facility]) Blood Arterial blood specimen / Unknown Arterial Puncture / Unknown 04/30/2025 11:13 AM EDT 04/30/2025 11:32 AM EDT us Pepe Anthony MD LAB BLOOD ORDERABLES Final Resu lt [facility] ([facility]) [address] [place] [address] * (ABNORMAL) Basic metabolic panel (04/30/2025 11:13 AM EDT) Sodium 134(L) 136 - 145 mmol/L 04/30/2025 12:11 PM EDT [facility] ([facility]) Potassium 3.8 3.5 - 5.1 mmol/L 04/30/2025 12:11 PM T [facility] ([facility]) Chloride 95(L) 98 - 107 mmol/L 04/30/2025 12:11 PM T [facility] ([facility]) CO2 35(H) 21 - 31 mmol/L 04/30/2025 12:11 PM T [facility] ([facility]) BUN 16 7 - 25 mg/dL 04/30/2025 12:11 PM T [facility] ([facility]) Creatinine 1.27 0.70 - 1.30 mg/dL 04/30/2025 12:11 PM [facility] ([facility]) Glucose 133(H) 70 - 100 mg/dL 04/30/2025 12:11 PM [facility] ([facility]) Calcium 7.6(L) 8.6 - 10.3 mg/dL 04/30/2025 12:11 PM [facility] ([facility]) Anion Gap 8 7 - 20 mmol/L 04/30/2025 12:11 PM [facility] ([facility]) eGFR 61.2 >60.0 mL/min/1. 73m*2 04/30/2025 12:11 PM [facility] ([facility]) Comment:[facility] s estimated glomerular filtration rate (eGFR) will [...] any one group of individuals. BUN/Creatinine Ratio 12.6 04/18 12:11 PM [facility] ([facility]) Blood Arterial blood specimen / Unknown Arterial Puncture / Unknown 04/30/2025 11:13 AM EDT 04/30/2025 11:32 AM EDT us Pepe Anthony MD LAB BLOOD ORDERABLES Final Resu lt [facility] ([facility]) [address] [place] [address] * LIMITED ECHOCARDIOGRAM (TTE) W/ LTD DOPPLER AND COLOR FLOW (04/30/2025 8:35 AM EDT) Anatomical Region Laterality Modality Other 04/30/2025 7:02 AM EDT Narrative 04/30/2025 11:22 AM EDT 1 1 [facility] Heart [facility] [address] [place] [address] [phone] (fax) Echocardiogram-[facility] Name: KRISTY DOHERTY Study Date: 04/30/2025 07:02 AM B/P: 121 mmHg/100 mmHg HR: 87 bpm Date of : 1955 Location: [facility] Height: 68 in. Age: 69 year(s) Patient Room: 3217 Weight: 178 lb. Gender: Male Patient Status: InPt BSA: 1.94 m2 Indication: Limited; pericardial effusion, S/P 35 mm Watchman device FLX, Pericardiocentesis EF 20%, Pacemaker/AICD, Continuous hemodialysis Examination: Limited Echo/Limited Doppler, Color flow imaging Image Quality: Good Patient Consent: Procedure explained to patient Conclusions Left Ventricle: Global left ventricular systolic function is severely reduced. The EF is 20 % visually. Diffuse global hypokinesis. Right Ventricle: Mildly reduced right ventricular systolic function. Doppler studies suggest mildly elevated right sided pressures. Left Atrium: The left atrium appears enlarged. Mitral Valve: Mild mitral regurgitation. Aortic Valve: Mild aortic valve regurgitation. Tricuspid Valve: Moderate tricuspid regurgitation. Tricuspid Valve Measurements RVSP: 42 mmHg. Pericardium: No pericardial effusion. Measurements Left Ventricle Label Value Normal Value LVEF visual 20 % Tricuspid Valve Label Value Normal Value RA Pressure 8 mmHg RVSP 42 mmHg TR Vmax 2.93 m/s Great Vessels Label Value Normal Value IVC 2 cm (1.2cm - 2.3cm) Valvular Assessment LVOT 0.7 - 1.1 m/sec Aortic Valve 1.0 - 1.7 m/sec Mitral Valve 0.6 - 1.3 m/sec Tricuspid Valve 0.3 - 0.7 m/sec Pulmonic Valve 0.6 - 0.9 m/sec Regurgitation Mild Mild Moderate No Findings Left Ventricle: Global left ventricular systolic function is severely reduced. The EF is 20 % visually. Diffuse global hypokinesis. All scored left ventricular wall segments are hypokinetic. No thrombus is identified in the left ventricle. Right Ventricle: Mildly reduced right ventricular systolic function. A pacemaker wire is seen in the right ventricle. Doppler studies suggest mildly elevated right sided pressures. Left Atrium: The left atrium appears enlarged. Right Atrium: The right atrium is mildly enlarged. Mitral Valve: The mitral valve is normal in mobility and thickness. Mild mitral regurgitation. Aortic Valve: Mildly sclerosed aortic valve cusps. Mild aortic valve regurgitation. The aortic valve is trileaflet. Tricuspid Valve: Normal tricuspid valve. Moderate tricuspid regurgitation. Tricuspid Valve Measurements RVSP: 42 mmHg. Pulmonic Valve: Normal pulmonary valve. No pulmonary regurgitation. Great Vessels: IVC: The IVC is normal in size. There is no inspiratory collapse of the IVC. Pericardium: No pericardial effusion. The Attending Physician has reviewed the examination with the fellow Procedure Staff Reading Group: [facility] Referring Physician: RUDY KING Property Consultant: June Brumfield RDCS, RVT, RN, BSN Ordering Physician: Wil Sotomayor MD Wall Motion Scores -1 - hyperkinesia, 0 - not evaluated, 1 - normal, 2 - hypokinesia, 3 - akinesia, 4 - dyskinesia Procedure Note Hay William MD - 04/30/2025 1 1 [facility] Heart Station [address] [place] [address] [phone] (fax) Echocardiogram-[facility] Name: KRISTY DOHERTY Study Date: 04/30/2025 07:02 AM B/P: 121 mmHg/100 mmHg HR: 87 bpm Date of : 1955 Location: [facility] Height: 68 in. Age: 69 year(s) Patient Room: 3217 Weight: 178 lb. Gender: Male Patient Status: InPt BSA: 1.94 m2 Indication: Limited; pericardial effusion, S/P 35 mm Watchman device FLX, Pericardiocentesis EF 20%, Pacemaker/AICD, Continuous hemodialysis Examination: Limited Echo/Limited Doppler, Color flow imaging Image Quality: Good Patient Consent: Procedure explained to patient Conclusions Left Ventricle: Global left ventricular systolic function is severely reduced. The EF is 20 % visually. Diffuse global hypokinesis. Right Ventricle: Mildly reduced right ventricular systolic function. Doppler studies suggest mildly elevated right sided pressures. Left Atrium: The left atrium appears enlarged. Mitral Valve: Mild mitral regurgitation. Aortic Valve: Mild aortic valve regurgitation. Tricuspid Valve: Moderate tricuspid regurgitation. Tricuspid Valve Measurements RVSP: 42 mmHg. Pericardium: No pericardial effusion. Measurements Left Ventricle Label Value Normal Value LVEF visual 20 % Tricuspid Valve Label Value Normal Value RA Pressure 8 mmHg RVSP 42 mmHg TR Vmax 2.93 m/s Great Vessels Label Value Normal Value IVC 2 cm (1.2cm - 2.3cm) Valvular Assessment LVOT 0.7 - 1.1 m/sec Aortic Valve 1.0 - 1.7 m/sec Mitral Valve 0.6 - 1.3 m/sec Tricuspid Valve 0.3 - 0.7 m/sec Pulmonic Valve 0.6 - 0.9 m/sec Regurgitation Mild Mild Moderate No Findings Left Ventricle: Global left ventricular systolic function is severely reduced. The EF is 20 % visually. Diffuse global hypokinesis. All scored left ventricular wall segments are hypokinetic. No thrombus is identified in the left ventricle. Right Ventricle: Mildly reduced right ventricular systolic function. A pacemaker wire is seen in the right ventricle. Doppler studies suggest mildly elevated right sided pressures. Left Atrium: The left atrium appears enlarged. Right Atrium: The right atrium is mildly enlarged. Mitral Valve: The mitral valve is normal in mobility and thickness. Mild mitral regurgitation. Aortic Valve: Mildly sclerosed aortic valve cusps. Mild aortic valve regurgitation. The aortic valve is trileaflet. Tricuspid Valve: Normal tricuspid valve. Moderate tricuspid regurgitation. Tricuspid Valve Measurements RVSP: 42 mmHg. Pulmonic Valve: Normal pulmonary valve. No pulmonary regurgitation. Great Vessels: IVC: The IVC is normal in size. There is no inspiratory collapse of the IVC. Pericardium: No pericardial effusion. The Attending Physician has reviewed the examination with the fellow Procedure Staff Reading Group: [facility] Referring Physician: RUDY KING Property Consultant: June Brumfield, DEAN, RVT, RN, BSN Ordering Physician: Wil Sotomayor MD Wall Motion Scores -1 - hyperkinesia, 0 - not evaluated, 1 - normal, 2 - hypokinesia, 3 - akinesia, 4 - dyskinesia us Wil Sotomayor MD CV ECHO PROCEDURES Final Result * (ABNORMAL) Phosphorus (04/30/2025 7:48 AM EDT) Phosphorus 1.8(L) 2.5 - 5.0 mg/dL 04/30/2025 10:07 AM EDT [facility]) Blood Venous blood specimen / Unknown Arterial Puncture / Unknown 04/30/2025 7:48 AM EDT 04/30/2025 8:12 AM EDT us Pepe Anthony MD LAB BLOOD ORDERABLES Final Resu lt Performing Organization Address City/[facility]/ZIP Co de Phone Number [facility]) [address] [place], [place] [id number] * Magnesium (04/30/2025 7:48 AM EDT) Magnesium 2.0 1.9 - 2.7 mg/dL 04/30/2025 10:07 AM EDT [facility]) Blood Venous blood specimen / Unknown Arterial Puncture / Unknown 04/30/2025 7:48 AM EDT 04/30/2025 8:12 AM EDT us Pepe Anthony MD LAB BLOOD ORDERABLES Final Resu lt [facility]) [address] [place] [address] * (ABNORMAL) Basic metabolic panel (04/30/2025 7:48 AM EDT) Sodium 135(L) 136 - 145 mmol/L 04/30/2025 10:07 AM [facility] ([facility]) Potassium 3.7 3.5 - 5.1 mmol/L 04/30/2025 10:07 AM [facility] ([facility]) Chloride 95(L) 98 - 107 mmol/L 04/30/2025 10:07 AM [facility] ([facility]) CO2 35(H) 21 - 31 mmol/L 04/30/2025 10:07 AM [facility] ([facility]) BUN 16 7 - 25 mg/dL 04/30/2025 10:07 AM [facility] ([facility]) Creatinine 1.29 0.70 - 1.30 mg/dL 04/30/2025 10:07 AM [facility] ([facility]) Glucose 95 70 - 100 mg/dL 04/30/2025 10:07 AM [facility] ([facility]) Calcium 8.0(L) 8.6 - 10.3 mg/dL 04/30/2025 10:07 AM [facility] ([facility]) Anion Gap 9 7 - 20 mmol/L 04/30/2025 10:07 AM [facility] ([facility]) eGFR 60.0(L) >60.0 mL/min/1. 73m*2 04/30/2025 10:07 AM [facility] ([facility]) Comment:The [facility] s estimated glomerular filtration rate (eGFR) will [...] any one group of individuals. BUN/Creatinine Ratio 12.4 04/18 10:07 AM [facility] ([facility]) Blood Venous blood specimen / Unknown Arterial Puncture / Unknown 04/30/2025 7:48 AM EDT 04/30/2025 8:12 AM EDT us Pepe Raj KLEIN LAB BLOOD ORDERABLES Final Resu lt [facility] ([facility]) [address] [place] [address] * (ABNORMAL) CBC auto differential (04/30/2025 4:10 AM EDT) Auto WBC 8.77 4.00 - 10.60 10*3/uL 04/30/2025 4:33 AM EDT [facility] ([facility]) RBC 2.58(L) 4.20 - 5.70 10*6/uL 04/30/2025 4:33 AM EDT [facility] ([facility]) Hemoglobin 8.2(L) 13.0 - 17.0 g/dL 04/30/2025 4:33 AM EDT [facility] ([facility]) Hematocrit 23.9(L) 39.0 - 50.0 % 04/30/2025 4:33 AM EDT [facility] ([facility]) MCV 92.6 82.0 - 98.0 fL 04/30/2025 4:33 AM EDT [facility] ([facility]) MCH 31.8 27.0 - 33.0 pg 04/30/2025 4:33 AM EDT [facility] ([facility]) MCHC 34.3 32.0 - 35.0 g/dL 04/30/2025 4:33 AM EDT [facility] ([facility]) RDW 14.7 11.5 - 15.0 % 04/30/2025 4:33 AM EDT [facility] ([facility]) Neutrophils % 81.5(H) 40.0 - 72.0 % 04/30/2025 4:33 AM EDT [facility] ([facility]) Lymphocytes % 7.8(L) 20.0 - 45.0 % 04/30/2025 4:33 AM EDT [facility] ([facility]) Monocytes % 9.9 5.0 - 12.0 % 04/30/2025 4:33 AM EDT [facility] ([facility]) Eosinophils % 0.1 0.0 - 6.0 % 04/30/2025 4:33 AM EDT [facility] ([facility]) Basophils % 0.1 0.0 - 1.0 % 04/30/2025 4:33 AM EDT [facility] ([facility]) Neutrophils Absolute 7.15 1.60 - 7.60 10*3/uL 04/30/2025 4:33 AM EDT [facility] ([facility]) Lymphocytes Absolute 0.68(L) 1.20 - 4.00 10*3/uL 04/30/2025 4:33 AM EDT [facility] ([facility]) Monocytes Absolute 0.87 0.10 - 1.00 10*3/uL 04/30/2025 4:33 AM EDT [facility] ([facility]) Eosinophils Absolute 0.01 0.00 - 0.50 10*3/uL 04/30/2025 4:33 AM EDT [facility] ([facility]) Basophils Absolute 0.01 0.00 - 0.20 10*3/uL 04/30/2025 4:33 AM EDT [facility] ([facility]) Platelets 143(L) 150 - 400 10*3/uL 04/30/2025 4:33 AM EDT [facility] ([facility]) nRBC % 1.1(H) 0 % 04/30/2025 4:33 AM EDT [facility] ([facility]) Immature Granulocytes % 0.6 0.0 - 1.0 % 04/30/2025 4:33 AM EDT [facility] ([facility]) Immature Granulocytes Absolute 0.05 0.00 - 0.20 10*3/uL 04/30/2025 4:33 AM EDT [facility] ([facility]) Blood Venous blood specimen / Unknown Arterial Line / Unknown 04/30/2025 4:10 AM EDT 04/30/2025 4:23 AM EDT us Pepe Anthony MD LAB BLOOD ORDERABLES Final Resu lt [facility]) [address] [place] [address] * (ABNORMAL) Phosphorus (04/30/2025 4:10 AM EDT) Pathologist [facility] Phosphorus 1.8(L) 2.5 - 5.0 mg/dL 04/30/2025 4:51 AM EDT [facility] ([facility]) Blood Arterial blood specimen / Unknown Arterial Puncture / Unknown 04/30/2025 4:10 AM EDT 04/30/2025 4:23 AM EDT us Pepe Anthony MD LAB BLOOD ORDERABLES Final Resu lt Performing Organization Address City/[facility]/ZIP Co de Phone Number [facility]) [address] [place] [address] * Magnesium (04/30/2025 4:10 AM EDT) Pathologist [facility] [place] Magnesium 2.0 1.9 - 2.7 mg/dL 04/30/2025 4:51 AM EDT [facility]) Blood Arterial blood specimen / Unknown Arterial Puncture / Unknown 04/30/2025 4:10 AM EDT 04/30/2025 4:23 AM EDT us Pepe Anthony MD LAB BLOOD ORDERABLES Final Resu lt Performing Organization Address City/[facility]/ZIP Co de Phone Number [facility]) [address] [place] [address] * (ABNORMAL) Comprehensive metabolic panel (04/30/2025 4:10 AM EDT) Sodium 134(L) 136 - 145 mmol/L 04/30/2025 4:51 AM EDT [facility]) Potassium 3.5 3.5 - 5.1 mmol/L 04/30/2025 4:51 AM EDT [facility] ([facility]) Chloride 94(L) 98 - 107 mmol/L 04/30/2025 4:51 AM EDT [facility]) CO2 35(H) 21 - 31 mmol/L 04/30/2025 4:51 AM [facility] ([facility]) Anion Gap 9 7 - 20 mmol/L 04/30/2025 4:51 AM [facility] ([facility]) BUN 16 7 - 25 mg/dL 04/30/2025 4:51 AM [facility] ([facility]) Creatinine 1.21 0.70 - 1.30 mg/dL 04/30/2025 4:51 AM [facility] ([facility]) BUN/Creatinine Ratio 13.2 04/18 4:51 AM [facility] ([facility]) Glucose 100 70 - 100 mg/dL 04/30/2025 4:51 AM [facility] ([facility]) Calcium 8.0(L) 8.6 - 10.3 mg/dL 04/30/2025 4:51 AM [facility] ([facility]) AST 119(H) 13 - 39 U/L 04/30/2025 4:51 AM [facility] ([facility]) ALT (SGPT) 211(H) 7 - 52 U/L 04/30/2025 4:51 AM [facility] ([facility]) Alkaline Phosphatase 54 34 - 104 U/L 04/30/2025 4:51 AM [facility] ([facility]) Total Protein 5.6(L) 6.0 - 8.3 g/dL 04/30/2025 4:51 AM [facility] ([facility]) Albumin 3.2(L) 3.5 - 5.7 g/dL 04/30/2025 4:51 AM [facility] ([facility]) Total Bilirubin 0.8 0.3 - 1.0 mg/dL 04/30/2025 4:51 AM [facility] ([facility]) eGFR 64.8 >60.0 mL/min/1. 73m*2 04/30/2025 4:51 AM [facility] ([facility]) Comment:[facility] s estimated glomerular filtration rate (eGFR) will [...] disproportionately affect any one group of individuals. Blood Arterial blood specimen / Unknown Arterial Puncture / Unknown 04/30/2025 4:10 AM EDT 04/30/2025 4:23 AM EDT us Pepe Anthony MD LAB BLOOD ORDERABLES Final Resu lt Performing Organization Address City/[facility]/ZIP Co de Phone Number [facility]) [address], [place] [id number] * (ABNORMAL) Phosphorus (04/30/2025 12:09 AM EDT) Phosphorus 2.1(L) 2.5 - 5.0 mg/dL 04/30/2025 12:51 AM EDT [facility]) Blood Arterial blood specimen / Unknown Arterial Puncture / Unknown 04/30/2025 12:09 AM EDT 04/30/2025 12:26 AM EDT us Pepe Anthony MD LAB BLOOD ORDERABLES Final Resu lt Performing Organization Address [facility] Co de Phone Number [facility]) [address] [place] [address] * Magnesium (04/30/2025 12:09 AM EDT) Magnesium 2.0 1.9 - 2.7 mg/dL 04/30/2025 12:51 AM EDT [facility]) Blood Arterial blood specimen / Unknown Arterial Puncture / Unknown 04/30/2025 12:09 AM EDT 04/30/2025 12:26 AM EDT us Pepe Anthony MD LAB BLOOD ORDERABLES Final Resu lt [facility] [address] [place] [address] * (ABNORMAL) Basic metabolic panel (04/30/2025 12:09 AM EDT) Sodium 134(L) 136 - 145 mmol/L 04/30/2025 12:51 AM EDT [facility] ([facility]) Potassium 3.6 3.5 - 5.1 mmol/L 04/30/2025 12:51 AM EDT [facility] ([facility]) Chloride 95(L) 98 - 107 mmol/L 04/30/2025 12:51 AM EDT [facility] ([facility]) CO2 33(H) 21 - 31 mmol/L 04/30/2025 12:51 AM EDT [facility] ([facility]) BUN 18 7 - 25 mg/dL 04/30/2025 12:51 AM EDT [facility] ([facility]) Creatinine 1.32(H) 0.70 - 1.30 mg/dL 04/30/2025 12:51 AM EDT [facility] ([facility]) Glucose 103(H) 70 - 100 mg/dL 04/30/2025 12:51 AM T [facility] ([facility]) Calcium 7.8(L) 8.6 - 10.3 mg/dL 04/30/2025 12:51 AM T [facility] ([facility]) Anion Gap 10 7 - 20 mmol/L 04/30/2025 12:51 AM T [facility] ([facility]) eGFR 58.4(L) >60.0 mL/min/1. 73m*2 04/30/2025 12:51 AM T [facility] ([facility]) Comment:[facility] s estimated glomerular filtration rate (eGFR) will [...] any one group of individuals. BUN/Creatinine Ratio 13.6 04/18 12:51 AM EDT [facility] ([facility]) Blood Arterial blood specimen / Unknown Arterial Puncture / Unknown 04/30/2025 12:09 AM EDT 04/30/2025 12:26 AM EDT us Pepe Anthony MD LAB BLOOD ORDERABLES Final Resu lt [facility] ([facility]) [address] [place] [address] * Phosphorus (04/29/2025 8:02 PM EDT) Phosphorus 2.8 2.5 - 5.0 mg/dL 04/29/2025 8:29 PM EDT [facility] ([facility]) Blood Arterial blood specimen / Unknown Arterial Puncture / Unknown 04/29/2025 8:02 PM EDT 04/29/2025 8:05 PM EDT us Pepe Anthony MD LAB BLOOD ORDERABLES Final Resu lt Performing Organization Address [facility]/ZIP Co de Phone Number [facility]) [address] [place] [address] * Magnesium (04/29/2025 8:02 PM EDT) Magnesium 1.9 1.9 - 2.7 mg/dL 04/29/2025 8:29 PM EDT [facility]) Blood Arterial blood specimen / Unknown Arterial Puncture / Unknown 04/29/2025 8:02 PM EDT 04/29/2025 8:05 PM EDT us Pepe Anthony MD LAB BLOOD ORDERABLES Final Resu lt Performing Organization Address City/[facility]/ZIP Co de Phone Number [facility] [address], [place] [id number] * (ABNORMAL) Basic metabolic panel (04/29/2025 8:02 PM EDT) Sodium 134(L) 136 - 145 mmol/L 04/29/2025 8:29 PM T [facility] ([facility]) Potassium 3.6 3.5 - 5.1 mmol/L 04/29/2025 8:29 PM [facility] ([facility]) Chloride 95(L) 98 - 107 mmol/L 04/29/2025 8:29 PM T [facility] ([facility]) CO2 33(H) 21 - 31 mmol/L 04/29/2025 8:29 PM [facility] ([facility]) BUN 20 7 - 25 mg/dL 04/29/2025 8:29 PM [facility] ([facility]) Creatinine 1.46(H) 0.70 - 1.30 mg/dL 04/29/2025 8:29 PM [facility] ([facility]) Glucose 114(H) 70 - 100 mg/dL 04/29/2025 8:29 PM [facility] ([facility]) Calcium 7.7(L) 8.6 - 10.3 mg/dL 04/29/2025 8:29 PM [facility] ([facility]) Anion Gap 10 7 - 20 mmol/L 04/29/2025 8:29 PM [facility] ([facility]) eGFR 51.7(L) >60.0 mL/min/1. 73m*2 04/29/2025 8:29 PM [facility] ([facility]) Comment:[facility] s estimated glomerular filtration rate (eGFR) will [...] any one group of individuals. BUN/Creatinine Ratio 13.7 04/18 8:29 PM [facility] ([facility]) Blood Arterial blood specimen / Unknown Arterial Puncture / Unknown 04/29/2025 8:02 PM EDT 04/29/2025 8:05 PM EDT us Pepe Anthony MD LAB BLOOD ORDERABLES Final Resu lt [facility] ([facility]) [address] [place] [address] * (ABNORMAL) Blood Gas, Venous (04/29/2025 3:38 PM EDT) pH, Ed 7.43(H) 7.31 - 7.41 04/29/2025 3:56 PM EDT [facility] RESPIRATORY THERAPY pCO2, Ed 48 40 - 50 mmHg 04/29/2025 3:56 PM EDT [facility] RESPIRATORY THERAPY pO2, Ed 35 35 - 45 mmHg 04/29/2025 3:56 PM EDT [facility] RESPIRATORY THERAPY O2 Sat, Ed 56.1(L) 65.0 - 75.0 % 04/29/2025 3:56 PM EDT [facility] RESPIRATORY THERAPY HCO3, Venous 31.9 mmol/L 04/29/2025 3:56 PM EDT [facility] RESPIRATORY THERAPY Oxyhemoglobin, Venous 55.6 % 04/29/2025 3:56 PM EDT [facility] RESPIRATORY THERAPY pH Venous Temp Adjusted 7.43(H) 7.31 - 7.41 04/29/2025 3:56 PM EDT [facility] RESPIRATORY THERAPY pCO2 Venous Temp Adjusted 48 40 - 50 mmHg 04/29/2025 3:56 PM EDT [facility] RESPIRATORY THERAPY pO2 Venous Temp Adjusted 35 35 - 45 mmHg 04/29/2025 3:56 PM EDT [facility] RESPIRATORY THERAPY Temperature 37.0 C 04/29/2025 3:56 PM EDT [facility] RESPIRATORY THERAPY Blood Venous blood specimen / Unknown Existing Catheter / Unknown 04/29/2025 3:38 PM EDT 04/29/2025 3:51 PM EDT us Pepe Anthony MD LAB BLOOD ORDERABLES Final Resu lt [facility] RESPIRATORY THERAPY [address] [place] [address], [place] * Phosphorus (04/29/2025 3:38 PM EDT) Phosphorus 3.0 2.5 - 5.0 mg/dL 04/29/2025 4:05 PM EDT [facility] ([facility]) Blood Venous blood specimen / Unknown Existing Catheter / Unknown 04/29/2025 3:38 PM EDT 04/29/2025 3:43 PM EDT us Pepe Anthony MD LAB BLOOD ORDERABLES Final Resu lt Performing Organization Address City/[facility]/ZIP Co de Phone Number [facility]) [address] [place] [address] * Magnesium (04/29/2025 3:38 PM EDT) Pathologist [facility] [place] Magnesium 2.0 1.9 - 2.7 mg/dL 04/29/2025 4:05 PM EDT [facility] ([facility]) Blood Venous blood specimen / Unknown Existing Catheter / Unknown 04/29/2025 3:38 PM EDT 04/29/2025 3:43 PM EDT us Pepe Anthony MD LAB BLOOD ORDERABLES Final Resu lt Performing Organization Address City/[facility]/ZIP Co de Phone Number [facility]) [address] [place] [address] * (ABNORMAL) Basic metabolic panel (04/29/2025 3:38 PM EDT) Sodium 133(L) 136 - 145 mmol/L 04/29/2025 4:05 PM EDT [facility] ([facility]) Potassium 3.6 3.5 - 5.1 mmol/L 04/29/2025 4:05 PM EDT [facility] ([facility]) Chloride 93(L) 98 - 107 mmol/L 04/29/2025 4:05 PM EDT [facility] ([facility]) CO2 32(H) 21 - 31 mmol/L 04/29/2025 4:05 PM EDT [facility] ([facility]) BUN 21 7 - 25 mg/dL 04/29/2025 4:05 PM EDT [facility] ([facility]) Creatinine 1.47(H) 0.70 - 1.30 mg/dL 04/29/2025 4:05 PM EDT [facility] ([facility]) Glucose 113(H) 70 - 100 mg/dL 04/29/2025 4:05 PM EDT [facility] ([facility]) Calcium 8.0(L) 8.6 - 10.3 mg/dL 04/29/2025 4:05 PM EDT [facility] ([facility]) Anion Gap 12 7 - 20 mmol/L 04/29/2025 4:05 PM EDT [facility] ([facility]) eGFR 51.3(L) >60.0 mL/min/1. 73m*2 04/29/2025 4:05 PM EDT [facility] ([facility]) Comment:[facility] s estimated glomerular filtration rate (eGFR) will [...] any one group of individuals. BUN/Creatinine Ratio 14.3 04/18 4:05 PM EDT [facility] ([facility]) Blood Venous blood specimen / Unknown Existing Catheter / Unknown 04/29/2025 3:38 PM EDT 04/29/2025 3:43 PM EDT us Pepe Anthony MD LAB BLOOD ORDERABLES Final Resu lt [facility]) [address] [place] [address] * Phosphorus (04/29/2025 1:02 PM EDT) Pathologist [facility] [place] Phosphorus 2.5 2.5 - 5.0 mg/dL 04/29/2025 1:31 PM EDT [facility] ([facility]) Blood Venous blood specimen / Unknown Existing Catheter / Unknown 04/29/2025 1:02 PM EDT 04/29/2025 1:09 PM EDT us Pepe Anthony MD LAB BLOOD ORDERABLES Final Resu lt [facility] ([facility]) [address] [place] [address] * Magnesium (04/29/2025 1:02 PM EDT) Pathologist [facility] [place] Magnesium 2.1 1.9 - 2.7 mg/dL 04/29/2025 1:31 PM EDT [facility] ([facility]) Blood Venous blood specimen / Unknown Existing Catheter / Unknown 04/29/2025 1:02 PM EDT 04/29/2025 1:09 PM EDT us Pepe Anthony MD LAB BLOOD ORDERABLES Final Resu lt Performing Organization Address City/[facility]/ZIP Co de Phone Number [facility]) [address] [place] [address] * (ABNORMAL) Basic metabolic panel (04/29/2025 1:02 PM EDT) Pathologist [facility] [place] Sodium 133(L) 136 - 145 mmol/L 04/29/2025 1:31 PM EDT [facility] ([facility]) Potassium 3.5 3.5 - 5.1 mmol/L 04/29/2025 1:31 PM EDT [facility] ([facility]) Chloride 94(L) 98 - 107 mmol/L 04/29/2025 1:31 PM EDT [facility] ([facility]) CO2 32(H) 21 - 31 mmol/L 04/29/2025 1:31 PM EDT [facility] ([facility]) BUN 23 7 - 25 mg/dL 04/29/2025 1:31 PM EDT [facility] ([facility]) Creatinine 1.69(H) 0.70 - 1.30 mg/dL 04/29/2025 1:31 PM EDT [facility] ([facility]) Glucose 108(H) 70 - 100 mg/dL 04/29/2025 1:31 PM EDT [facility] ([facility]) Calcium 8.0(L) 8.6 - 10.3 mg/dL 04/29/2025 1:31 PM EDT [facility] ([facility]) Anion Gap 11 7 - 20 mmol/L 04/29/2025 1:31 PM EDT [facility] ([facility]) eGFR 43.4(L) >60.0 mL/min/1. 73m*2 04/29/2025 1:31 PM EDT [facility] ([facility]) Comment:The [facility] s estimated glomerular filtration rate (eGFR) will [...] any one group of individuals. BUN/Creatinine Ratio 13.6 04/18 1:31 PM EDT [facility] ([facility]) Blood Venous blood specimen / Unknown Existing Catheter / Unknown 04/29/2025 1:02 PM EDT 04/29/2025 1:09 PM EDT us Pepe Anthony MD LAB BLOOD ORDERABLES Final Resu lt [facility] ([facility]) [address] [place] [address] * XR chest 1 view (04/29/2025 11:20 AM EDT) Anatomical Region Laterality Modality Chest Computed Radiogr aphy 04/29/2025 11:5 0 AM EDT Impressions 04/29/2025 11:51 AM EDT * Left chest wall pacemaker. Removal of right IJ catheter. No pneumothorax. Vascular congestion. New right basilar airspace opacification as well as some increased retrocardiac opacities. Layering right effusion. Pneumonia or aspiration are not excluded. Electronically signed: Virgilio Barillas MD. Narrative 04/29/2025 11:51 AM EDT XR CHEST 1 VIEW Clinical information: Cough. Comparison: 04/25/25. Procedure Note Virgilio Barillas MD - 04/29/2025 XR CHEST 1 VIEW Clinical information: Cough. Comparison: 04/25/25. IMPRESSION: *Left chest wall pacemaker. Removal of right IJ catheter. Nopneumothorax. Vascular congestion. New right basilar airspace opacification as well assome increased retrocardiac opacities. Layering right effusion. Pneumonia or aspiration are not excluded. Electronically signed: Virgilio Barillas MD. us Pepe Anthony MD IMG XR PROCEDURES Final Result * (ABNORMAL) Ferritin (04/29/2025 8:14 AM EDT) Ferritin 1,265.0(H) 24.0 - 336.0 ng/mL 04/29/2025 11:02 AM EDT [facility] ([facility]) Blood Venous blood specimen / Unknown Existing Catheter / Unknown 04/29/2025 8:14 AM EDT 04/29/2025 8:19 AM EDT us Pepe Anthony MD LAB BLOOD ORDERABLES Final Resu lt [facility] ([facility]) [address] [place] [address] * (ABNORMAL) Iron and TIBC (04/29/2025 8:14 AM EDT) Iron 33(L) 50 - 212 ug/dL 04/29/2025 10:43 AM EDT [facility] ([facility]) TIBC 214(L) 250 - 450 ug/dL 04/29/2025 10:43 AM EDT [facility] ([facility]) Iron Saturation 15(L) 20 - 50 % 10:43 AM EDT [facility] ([facility]) UIBC 181.0 155.0 - 355.0 ug/dL 04/29/2025 10:43 AM EDT [facility]) Blood Venous blood specimen / Unknown Existing Catheter / Unknown 04/29/2025 8:14 AM EDT 04/29/2025 8:19 AM EDT us Pepe Anthony MD LAB BLOOD ORDERABLES Final Resu lt [facility]) [address] [place] [address] * (ABNORMAL) Phosphorus (04/29/2025 8:14 AM EDT) Phosphorus 2.4(L) 2.5 - 5.0 mg/dL 04/29/2025 8:43 AM EDT [facility]) Blood Venous blood specimen / Unknown Existing Catheter / Unknown 04/29/2025 8:14 AM EDT 04/29/2025 8:19 AM EDT us Pepe Anthony MD LAB BLOOD ORDERABLES Final Resu lt [facility]) [address] [place] [address] * Magnesium (04/29/2025 8:14 AM EDT) Magnesium 2.2 1.9 - 2.7 mg/dL 04/29/2025 8:43 AM EDT [facility]) Blood Venous blood specimen / Unknown Existing Catheter / Unknown 04/29/2025 8:14 AM EDT 04/29/2025 8:19 AM EDT us Pepe Raj MD LAB BLOOD ORDERABLES Final Resu lt [facility] ([facility]) [address] [place] [address] * (ABNORMAL) Basic metabolic panel (04/29/2025 8:14 AM EDT) Sodium 133(L) 136 - 145 mmol/L 04/29/2025 8:43 AM EDT [facility] ([facility]) Potassium 3.6 3.5 - 5.1 mmol/L 04/29/2025 8:43 AM EDT [facility] ([facility]) Chloride 95(L) 98 - 107 mmol/L 04/29/2025 8:43 AM EDT [facility] ([facility]) CO2 32(H) 21 - 31 mmol/L 04/29/2025 8:43 AM EDT [facility] ([facility]) BUN 25 7 - 25 mg/dL 04/29/2025 8:43 AM EDT [facility] ([facility]) Creatinine 1.72(H) 0.70 - 1.30 mg/dL 04/29/2025 8:43 AM EDT [facility] ([facility]) Glucose 108(H) 70 - 100 mg/dL 04/29/2025 8:43 AM EDT [facility] ([facility]) Calcium 7.8(L) 8.6 - 10.3 mg/dL 04/29/2025 8:43 AM EDT [facility] ([facility]) Anion Gap 10 7 - 20 mmol/L 04/29/2025 8:43 AM EDT [facility] ([facility]) eGFR 42.5(L) >60.0 mL/min/1. 73m*2 04/29/2025 8:43 AM EDT [facility] ([facility]) Comment:[facility] s estimated glomerular filtration rate (eGFR) will [...] any one group of individuals. BUN/Creatinine Ratio 14.5 04/18 8:43 AM EDT [facility] ([facility]) Blood Venous blood specimen / Unknown Existing Catheter / Unknown 04/29/2025 8:14 AM EDT 04/29/2025 8:19 AM EDT us Pepe Anthony MD LAB BLOOD ORDERABLES Final Resu lt [facility] ([facility]) [address] [place] [address] * (ABNORMAL) CBC auto differential (04/29/2025 3:04 AM EDT) Auto WBC 9.76 4.00 - 10.60 10*3/uL 04/29/2025 3:30 AM EDT [facility] ([facility]) RBC 2.59(L) 4.20 - 5.70 10*6/uL 04/29/2025 3:30 AM EDT [facility] ([facility]) Hemoglobin 8.3(L) 13.0 - 17.0 g/dL 04/29/2025 3:30 AM EDT [facility] ([facility]) Hematocrit 23.4(L) 39.0 - 50.0 % 04/29/2025 3:30 AM EDT [facility] ([facility]) MCV 90.3 82.0 - 98.0 fL 04/29/2025 3:30 AM EDT [facility] ([facility]) MCH 32.0 27.0 - 33.0 pg 04/29/2025 3:30 AM EDT [facility] ([facility]) MCHC 35.5(H) 32.0 - 35.0 g/dL 04/29/2025 3:30 AM EDT [facility] ([facility]) RDW 14.5 11.5 - 15.0 % 04/29/2025 3:30 AM EDT [facility] ([facility]) Neutrophils % 90.3(H) 40.0 - 72.0 % 04/29/2025 3:30 AM EDT [facility] ([facility]) Lymphocytes % 3.3(L) 20.0 - 45.0 % 04/29/2025 3:30 AM T [facility] ([facility]) Monocytes % 5.6 5.0 - 12.0 % 04/29/2025 3:30 AM EDT [facility] ([facility]) Eosinophils % 0.0 0.0 - 6.0 % 04/29/2025 3:30 AM EDT [facility] ([facility]) Basophils % 0.1 0.0 - 1.0 % 04/29/2025 3:30 AM T [facility] ([facility]) Neutrophils Absolute 8.81(H) 1.60 - 7.60 10*3/uL 04/29/2025 3:30 AM T [facility] ([facility]) Lymphocytes Absolute 0.32(L) 1.20 - 4.00 10*3/uL 04/29/2025 3:30 AM T [facility] ([facility]) Monocytes Absolute 0.55 0.10 - 1.00 10*3/uL 04/29/2025 3:30 AM EDT [facility] ([facility]) Eosinophils Absolute 0.00 0.00 - 0.50 10*3/uL 04/29/2025 3:30 AM T [facility] ([facility]) Basophils Absolute 0.01 0.00 - 0.20 10*3/uL 04/29/2025 3:30 AM T [facility] ([facility]) Platelets 133(L) 150 - 400 10*3/uL 04/29/2025 3:30 AM T [facility] ([facility]) nRBC % 0.3(H) 0 % 04/29/2025 3:30 AM T [facility] ([facility]) Immature Granulocytes % 0.7 0.0 - 1.0 % 04/29/2025 3:[address] [facility] ([facility]) Immature Granulocytes Absolute 0.07 0.00 - 0.20 10*3/uL 04/29/2025 3:30 AM T [facility] ([facility]) Immature Platelet Fraction % 5.7 0.8 - 6.3 % 04/29/2025 3:30 AM EDT [facility] ([facility]) Blood Venous blood specimen / Unknown Arterial Line / Unknown 04/29/2025 3:04 AM EDT 04/29/2025 3:14 AM EDT us Pepe Anthony MD LAB BLOOD ORDERABLES Final Resu lt [facility] ([facility]) [address] [place] [address] * Phosphorus (04/29/2025 3:04 AM EDT) Phosphorus 2.8 2.5 - 5.0 mg/dL 04/29/2025 3:38 AM EDT [facility]) Blood Arterial blood specimen / Unknown Arterial Line / Unknown 04/29/2025 3:04 AM EDT 04/29/2025 3:13 AM EDT us Pepe Anthony MD LAB BLOOD ORDERABLES Final Resu lt Performing Organization Address [facility]/ZIP Co de Phone Number [facility]) [address] [place] [address] * Magnesium (04/29/2025 3:04 AM EDT) Magnesium 1.9 1.9 - 2.7 mg/dL 04/29/2025 3:38 AM EDT [facility]) Blood Arterial blood specimen / Unknown Arterial Line / Unknown 04/29/2025 3:04 AM EDT 04/29/2025 3:13 AM EDT us Pepe Anthony MD LAB BLOOD ORDERABLES Final Resu lt Performing Organization Address City/[facility]/ZIP Co de Phone Number [facility] ([facility]) [address], [place] [id number] * (ABNORMAL) Basic metabolic panel (04/29/2025 3:04 AM EDT) Sodium 132(L) 136 - 145 mmol/L 04/29/2025 3:38 AM [facility] ([facility]) Potassium 3.6 3.5 - 5.1 mmol/L 04/29/2025 3:38 AM [facility] ([facility]) Chloride 97(L) 98 - 107 mmol/L 04/29/2025 3:38 AM [facility] ([facility]) CO2 26 21 - 31 mmol/L 04/29/2025 3:38 AM [facility] ([facility]) BUN 32(H) 7 - 25 mg/dL 04/29/2025 3:38 AM [facility] ([facility]) Creatinine 2.17(H) 0.70 - 1.30 mg/dL 04/29/2025 3:38 AM [facility] ([facility]) Glucose 111(H) 70 - 100 mg/dL 04/29/2025 3:38 AM [facility] ([facility]) Calcium 7.1(L) 8.6 - 10.3 mg/dL 04/29/2025 3:38 AM [facility] ([facility]) Anion Gap 13 7 - 20 mmol/L 04/29/2025 3:38 AM [facility] ([facility]) eGFR 32.2(L) >60.0 mL/min/1. 73m*2 04/29/2025 3:38 AM [facility] ([facility]) Comment:[facility] s estimated glomerular filtration rate (eGFR) will [...] any one group of individuals. BUN/Creatinine Ratio 14.7 04/18 3:38 AM [facility] ([facility]) Blood Arterial blood specimen / Unknown Arterial Line / Unknown 04/29/2025 3:04 AM EDT 04/29/2025 3:13 AM EDT us ePpe Anthony MD LAB BLOOD ORDERABLES Final Resu lt [facility] ([facility]) [address] [place] [address] * (ABNORMAL) Comprehensive metabolic panel (04/29/2025 2:38 AM EDT) Sodium 132(L) 136 - 145 mmol/L 04/29/2025 3:12 AM EDT [facility] ([facility]) Potassium 3.7 3.5 - 5.1 mmol/L 04/29/2025 3:12 AM EDT [facility] ([facility]) Chloride 96(L) 98 - 107 mmol/L 04/29/2025 3:12 AM EDT [facility] ([facility]) CO2 26 21 - 31 mmol/L 04/29/2025 3:12 AM EDT [facility] ([facility]) Anion Gap 14 7 - 20 mmol/L 04/29/2025 3:12 AM EDT [facility] ([facility]) BUN 32(H) 7 - 25 mg/dL 04/29/2025 3:12 AM EDT [facility] ([facility]) Creatinine 2.24(H) 0.70 - 1.30 mg/dL 04/29/2025 3:12 AM EDT [facility] ([facility]) BUN/Creatinine Ratio 14.3 04/18 3:12 AM EDT [facility] ([facility]) Glucose 111(H) 70 - 100 mg/dL 04/29/2025 3:12 AM EDT [facility] ([facility]) Calcium 7.5(L) 8.6 - 10.3 mg/dL 04/29/2025 3:12 AM EDT [facility] ([facility]) AST 252(H) 13 - 39 U/L 04/29/2025 3:12 AM EDT [facility] ([facility]) ALT (SGPT) 267(H) 7 - 52 U/L 04/29/2025 3:12 AM EDT [facility] ([facility]) Alkaline Phosphatase 56 34 - 104 U/L 04/29/2025 3:12 AM EDT [facility] ([facility]) Total Protein 5.5(L) 6.0 - 8.3 g/dL 04/29/2025 3:12 AM EDT [facility] ([facility]) Albumin 3.1(L) 3.5 - 5.7 g/dL 04/29/2025 3:12 AM EDT [facility] ([facility]) Total Bilirubin 0.7 0.3 - 1.0 mg/dL 04/29/2025 3:12 AM EDT [facility] ([facility]) eGFR 31.0(L) >60.0 mL/min/1. 73m*2 04/29/2025 3:12 AM EDT [facility] ([facility]) Comment:[facility] s estimated glomerular filtration rate (eGFR) will [...] disproportionately affect any one group of individuals. Blood Venous blood specimen / Unknown Arterial Line / Unknown 04/29/2025 2:38 AM EDT 04/29/2025 2:45 AM EDT us Pepe Anthony MD LAB BLOOD ORDERABLES Final Resu lt [facility] ([facility]) [address] [place] [address] * Ammonia (04/29/2025 2:38 AM EDT) Ammonia 56 18 - 72 umol/L 04/29/2025 3:06 AM EDT [facility] ([facility]) Blood Venous blood specimen / Unknown Arterial Line / Unknown 04/29/2025 2:38 AM EDT 04/29/2025 2:44 AM EDT us Pepe Anthony MD LAB BLOOD ORDERABLES Final Resu lt [facility]) [address] [place] [address] * Phosphorus (04/29/2025 12:22 AM EDT) Phosphorus 2.7 2.5 - 5.0 mg/dL 04/29/2025 12:58 AM EDT [facility] ([facility]) Blood Arterial blood specimen / Unknown Arterial Line / Unknown 04/29/2025 12:22 AM EDT 04/29/2025 12:34 AM EDT us Pepe Anthony MD LAB BLOOD ORDERABLES Final Resu lt Performing Organization Address [facility] Co de Phone Number [facility]) [address] [place] [address] * Magnesium (04/29/2025 12:22 AM EDT) Magnesium 2.0 1.9 - 2.7 mg/dL 04/29/2025 12:58 AM EDT [facility]) Blood Arterial blood specimen / Unknown Arterial Line / Unknown 04/29/2025 12:22 AM EDT 04/29/2025 12:34 AM EDT us Pepe Anthony MD LAB BLOOD ORDERABLES Final Resu lt Performing Organization Address City/[facility]/ZIP Co de Phone Number [facility]) [address] [place] [address] * (ABNORMAL) Basic metabolic panel (04/29/2025 12:22 AM EDT) Sodium 132(L) 136 - 145 mmol/L 04/29/2025 12:58 AM EDT [facility] ([facility]) Potassium 3.5 3.5 - 5.1 mmol/L 04/29/2025 12:58 AM [facility] ([facility]) Chloride 97(L) 98 - 107 mmol/L 04/29/2025 12:58 AM [facility] ([facility]) CO2 26 21 - 31 mmol/L 04/29/2025 12:58 AM [facility] ([facility]) BUN 33(H) 7 - 25 mg/dL 04/29/2025 12:58 AM [facility] ([facility]) Creatinine 2.37(H) 0.70 - 1.30 mg/dL 04/29/2025 12:58 AM [facility] ([facility]) Glucose 108(H) 70 - 100 mg/dL 04/29/2025 12:58 AM [facility] ([facility]) Calcium 7.2(L) 8.6 - 10.3 mg/dL 04/29/2025 12:58 AM [facility] ([facility]) Anion Gap 13 7 - 20 mmol/L 04/29/2025 12:58 AM [facility] ([facility]) eGFR 28.9(L) >60.0 mL/min/1. 73m*2 04/29/2025 12:58 AM [facility] ([facility]) Comment:[facility] s estimated glomerular filtration rate (eGFR) will [...] any one group of individuals. BUN/Creatinine Ratio 13.9 04/18 12:58 AM [facility] ([facility]) Blood Arterial blood specimen / Unknown Arterial Line / Unknown 04/29/2025 12:22 AM EDT 04/29/2025 12:34 AM EDT us Pepe Anthony MD LAB BLOOD ORDERABLES Final Resu lt [facility]) [address] [place] [address] * Phosphorus (04/28/2025 8:10 PM EDT) Phosphorus 3.3 2.5 - 5.0 mg/dL 04/28/2025 8:44 PM EDT [facility] ([facility]) Blood Arterial blood specimen / Unknown Arterial Line / Unknown 04/28/2025 8:10 PM EDT 04/28/2025 8:21 PM EDT us Pepe Anthony MD LAB BLOOD ORDERABLES Final Resu lt Performing Organization Address [facility]/ZIP Co de Phone Number [facility]) [address] [place] [address] * (ABNORMAL) Magnesium (04/28/2025 8:10 PM EDT) Magnesium 1.8(L) 1.9 - 2.7 mg/dL 04/28/2025 8:44 PM EDT [facility]) Blood Arterial blood specimen / Unknown Arterial Line / Unknown 04/28/2025 8:10 PM EDT 04/28/2025 8:21 PM EDT us Pepe Anthony MD LAB BLOOD ORDERABLES Final Resu lt [facility]) [address], [place] [id number] * (ABNORMAL) Basic metabolic panel (04/28/2025 8:10 PM EDT) Sodium 131(L) 136 - 145 mmol/L 04/28/2025 8:44 PM EDT [facility]) Potassium 3.7 3.5 - 5.1 mmol/L 04/28/2025 8:44 PM EDT [facility] ([facility]) Chloride 99 98 - 107 mmol/L 04/28/2025 8:44 PM EDT [facility] ([facility]) CO2 21 21 - 31 mmol/L 04/28/2025 8:44 PM EDT [facility] ([facility]) BUN 38(H) 7 - 25 mg/dL 04/28/2025 8:44 PM EDT [facility] ([facility]) Creatinine 2.65(H) 0.70 - 1.30 mg/dL 04/28/2025 8:44 PM EDT [facility] ([facility]) Glucose 109(H) 70 - 100 mg/dL 04/28/2025 8:44 PM EDT [facility] ([facility]) Calcium 6.9(L) 8.6 - 10.3 mg/dL 04/28/2025 8:44 PM EDT [facility] ([facility]) Anion Gap 15 7 - 20 mmol/L 04/28/2025 8:44 PM T [facility] ([facility]) eGFR 25.3(L) >60.0 mL/min/1. 73m*2 04/28/2025 8:44 PM EDT [facility] ([facility]) Comment:[facility] s estimated glomerular filtration rate (eGFR) will [...] any one group of individuals. BUN/Creatinine Ratio 14.3 04/18 8:44 PM EDT [facility] ([facility]) Blood Arterial blood specimen / Unknown Arterial Line / Unknown 04/28/2025 8:10 PM EDT 04/28/2025 8:21 PM EDT us Pepe Anthony MD LAB BLOOD ORDERABLES Final Resu lt Performing Organization Address City/[facility]/ZIP Co de Phone Number [facility] ([facility]) [address], [place] [id number] * Phosphorus (04/28/2025 3:57 PM EDT) Phosphorus 4.1 2.5 - 5.0 mg/dL 04/28/2025 4:30 PM EDT [facility] ([facility]) Blood Arterial blood specimen / Unknown Arterial Line / Unknown 04/28/2025 3:57 PM EDT 04/28/2025 4:06 PM EDT Pepe Anthony MD LAB BLOOD ORDERABLES Final Resu lt Performing Organization Address [facility]/ZIP Co de Phone Number [facility] ([facility]) [address] [place] [address] * (ABNORMAL) Comprehensive metabolic panel (04/28/2025 3:57 PM EDT) Sodium 131(L) 136 - 145 mmol/L 04/28/2025 4:31 PM EDT [facility] ([facility]) Potassium 3.6 3.5 - 5.1 mmol/L 04/28/2025 4:31 PM EDT [facility] ([facility]) Chloride 98 98 - 107 mmol/L 04/28/2025 4:31 PM EDT [facility] ([facility]) CO2 22 21 - 31 mmol/L 04/28/2025 4:31 PM EDT [facility] ([facility]) Anion Gap 15 7 - 20 mmol/L 04/28/2025 4:31 PM EDT [facility] ([facility]) BUN 43(H) 7 - 25 mg/dL 04/28/2025 4:31 PM EDT [facility] ([facility]) Creatinine 3.18(H) 0.70 - 1.30 mg/dL 04/28/2025 4:31 PM EDT [facility] ([facility]) BUN/Creatinine Ratio 13.5 04/18 4:31 PM EDT [facility] ([facility]) Glucose 132(H) 70 - 100 mg/dL 04/28/2025 4:31 PM EDT [facility] ([facility]) Calcium 6.9(L) 8.6 - 10.3 mg/dL 04/28/2025 4:31 PM EDT [facility] ([facility]) AST 514(H) 13 - 39 U/L 04/28/2025 4:31 PM EDT [facility] ([facility]) ALT (SGPT) 314(H) 7 - 52 U/L 04/28/2025 4:31 PM EDT [facility] ([facility]) Alkaline Phosphatase 62 34 - 104 U/L 04/28/2025 4:31 PM EDT [facility] ([facility]) Total Protein 5.5(L) 6.0 - 8.3 g/dL 04/28/2025 4:31 PM EDT [facility] ([facility]) Albumin 3.1(L) 3.5 - 5.7 g/dL 04/28/2025 4:31 PM T [facility] ([facility]) Total Bilirubin 0.6 0.3 - 1.0 mg/dL 04/28/2025 4:31 PM T [facility] ([facility]) eGFR 20.3(L) >60.0 mL/min/1. 73m*2 04/28/2025 4:31 PM T [facility] ([facility]) Comment:[facility] s estimated glomerular filtration rate (eGFR) will [...] disproportionately affect any one group of individuals. Blood Arterial blood specimen / Unknown Arterial Line / Unknown 04/28/2025 3:57 PM EDT 04/28/2025 4:06 PM EDT us Pepe Anthony MD LAB BLOOD ORDERABLES Final Resu lt [facility] ([facility]) [address], [place] [id number] * Magnesium (04/28/2025 3:57 PM EDT) Magnesium 2.0 1.9 - 2.7 mg/dL 04/28/2025 4:30 PM EDT [facility] ([facility]) Blood Arterial blood specimen / Unknown Arterial Line / Unknown 04/28/2025 3:57 PM EDT 04/28/2025 4:06 PM EDT us Pepe Anthony MD LAB BLOOD ORDERABLES Final Resu lt Performing Organization Address [facility]/ZIP Co de Phone Number [facility] ([facility]) [address] [place] [address] * Phosphorus (04/28/2025 1:46 PM EDT) Phosphorus 4.7 2.5 - 5.0 mg/dL 04/28/2025 2:19 PM EDT [facility] ([facility]) Blood Arterial blood specimen / Unknown Arterial Line / Unknown 04/28/2025 1:46 PM EDT 04/28/2025 1:57 PM EDT us Pepe Anthony MD LAB BLOOD ORDERABLES Final Resu lt Performing Organization Address City/[facility]/ZIP Co de Phone Number [facility] ([facility]) [address] [place] [address] * Magnesium (04/28/2025 1:46 PM EDT) Magnesium 2.0 1.9 - 2.7 mg/dL 04/28/2025 2:19 PM EDT [facility] ([facility]) Blood Arterial blood specimen / Unknown Arterial Line / Unknown 04/28/2025 1:46 PM EDT 04/28/2025 1:57 PM EDT us Pepe Raj MD LAB BLOOD ORDERABLES Final Resu lt [facility] ([facility]) [address] [place] [address] * (ABNORMAL) Basic metabolic panel (04/28/2025 1:46 PM EDT) Sodium 131(L) 136 - 145 mmol/L 04/28/2025 2:19 PM EDT [facility] ([facility]) Potassium 3.6 3.5 - 5.1 mmol/L 04/28/2025 2:19 PM EDT [facility] ([facility]) Chloride 100 98 - 107 mmol/L 04/28/2025 2:19 PM EDT [facility] ([facility]) CO2 21 21 - 31 mmol/L 04/28/2025 2:19 PM EDT [facility] ([facility]) BUN 45(H) 7 - 25 mg/dL 04/28/2025 2:19 PM EDT [facility] ([facility]) Creatinine 3.34(H) 0.70 - 1.30 mg/dL 04/28/2025 2:19 PM EDT [facility] ([facility]) Glucose 123(H) 70 - 100 mg/dL 04/28/2025 2:19 PM EDT [facility] ([facility]) Calcium 6.3(L) 8.6 - 10.3 mg/dL 04/28/2025 2:19 PM EDT [facility] ([facility]) Anion Gap 14 7 - 20 mmol/L 04/28/2025 2:19 PM EDT [facility] ([facility]) eGFR 19.2(L) >60.0 mL/min/1. 73m*2 04/28/2025 2:19 PM EDT [facility] ([facility]) Comment:The [facility] s estimated glomerular filtration rate (eGFR) will [...] any one group of individuals. BUN/Creatinine Ratio 13.5 04/18 2:19 PM EDT [facility] ([facility]) Blood Arterial blood specimen / Unknown Arterial Line / Unknown 04/28/2025 1:46 PM EDT 04/28/2025 1:57 PM EDT us Pepe Anthony MD LAB BLOOD ORDERABLES Final Resu lt Performing Organization Address [facility] Co de Phone Number [facility]) [address] [place] [address] * POCT glucose meter (04/28/2025 1:44 PM EDT) Glucose POC 88 70 - 105 mg/dL 04/28/2025 1:56 PM EDT [facility]) Comment: Blood Capillary blood specimen / Unknown 04/28/2025 1:44 PM EDT 04/28/2025 1:56 PM EDT Narrative [facility]) - 04/28/2025 1:56 PM EDT Waived Testing in the ED is performed under the ED CLIA certificate #[id number]. us Pepe Anthony MD LAB BLOOD ORDERABLES Final Resu lt Performing Organization Address [facility] Co de Phone Number [facility]) [address] [place], [place] [id number] * (ABNORMAL) Arterial Blood Gases (04/28/2025 8:54 AM EDT) pH, Arterial 7.36 7.35 - 7.45 04/28/2025 8:54 AM EDT [facility] RESPIRATORY THERAPY pCO2, Arterial 30(L) 35 - 45 mmHg 04/28/2025 8:54 AM EDT [facility] RESPIRATORY THERAPY pO2, Arterial 86 83 - 108 mmHg 04/28/2025 8:54 AM EDT [facility] RESPIRATORY THERAPY HCO3, Arterial 16.9(L) 21.0 - 28.0 mmol/L 04/28/2025 8:54 AM EDT [facility] RESPIRATORY THERAPY O2 Sat, Arterial 98.1 94.0 - 100.0 % 04/28/2025 8:54 AM EDT [facility] RESPIRATORY THERAPY Base Excess, Arterial -7.3(L) -2.0 - 3.0 mmol/L 04/28/2025 8:54 AM EDT [facility] RESPIRATORY THERAPY Oxyhemoglobin, Arterial 96.2 94.0 - 97.0 % 04/28/2025 8:54 AM EDT [facility] RESPIRATORY THERAPY Temperature 37.0 C 04/28/2025 8:54 AM EDT [facility] RESPIRATORY [facility] Oxygen Device #1 Cannula 04/28/20 8:54 AM EDT [facility] RESPIRATORY THERAPY LPM 4.0 LPM 04/28/2025 8:54 AM EDT [facility] RESPIRATORY THERAPY PF Ratio 04/28/2025 8:54 AM EDT [facility] RESPIRATORY THERAPY Comment:C^Incalculable A-aDo2 04/28/2025 8:54 AM EDT [facility] RESPIRATORY THERAPY Comment:C^Incalculable paO2/pAO2 04/28/2025 8:54 AM EDT [facility] RESPIRATORY THERAPY Comment:C^Incalculable Blood Arterial blood specimen / Unknown 04/28/2025 8:54 AM EDT 04/28/2025 8:54 AM EDT us Pepe Raj KLEIN LAB BLOOD ORDERABLES Final Resu lt [facility] RESPIRATORY THERAPY [address] [place] [address], [place] * Phosphorus (04/28/2025 8:37 AM EDT) Phosphorus 4.9 2.5 - 5.0 mg/dL 04/28/2025 9:10 AM EDT [facility] ([facility]) Blood Arterial blood specimen / Unknown Arterial Line / Unknown 04/28/2025 8:37 AM EDT 04/28/2025 8:47 AM EDT us Pepe Raj MD LAB BLOOD ORDERABLES Final Resu lt Performing Organization Address City/[facility]/ZIP Co de Phone Number [facility]) [address] [place], [place] [id number] * Magnesium (04/28/2025 8:37 AM EDT) Magnesium 2.1 1.9 - 2.7 mg/dL 04/28/2025 9:10 AM EDT [facility] ([facility]) Blood Arterial blood specimen / Unknown Arterial Line / Unknown 04/28/2025 8:37 AM EDT 04/28/2025 8:47 AM EDT us Pepe Anthony MD LAB BLOOD ORDERABLES Final Resu lt Performing Organization Address [facility]/ZIP Co de Phone Number [facility] ([facility]) [address] [place] [address] * (ABNORMAL) Basic metabolic panel (04/28/2025 8:37 AM EDT) Sodium 130(L) 136 - 145 mmol/L 04/28/2025 9:10 AM EDT [facility] ([facility]) Potassium 4.3 3.5 - 5.1 mmol/L 04/28/2025 9:10 AM EDT [facility] ([facility]) Chloride 99 98 - 107 mmol/L 04/28/2025 9:10 AM EDT [facility] ([facility]) CO2 21 21 - 31 mmol/L 04/28/2025 9:10 AM EDT [facility] ([facility]) BUN 42(H) 7 - 25 mg/dL 04/28/2025 9:10 AM EDT [facility] ([facility]) Creatinine 3.36(H) 0.70 - 1.30 mg/dL 04/28/2025 9:10 AM EDT [facility] ([facility]) Glucose 121(H) 70 - 100 mg/dL 04/28/2025 9:10 AM EDT [facility] ([facility]) Calcium 6.7(L) 8.6 - 10.3 mg/dL 04/28/2025 9:10 AM EDT [facility] ([facility]) Anion Gap 14 7 - 20 mmol/L 04/28/2025 9:10 AM EDT [facility] ([facility]) eGFR 19.0(L) >60.0 mL/min/1. 73m*2 04/28/2025 9:10 AM EDT [facility] ([facility]) Comment:[facility] s estimated glomerular filtration rate (eGFR) will [...] any one group of individuals. BUN/Creatinine Ratio 12.5 04/18 9:10 AM EDT [facility] ([facility]) Blood Arterial blood specimen / Unknown Arterial Line / Unknown 04/28/2025 8:37 AM EDT 04/28/2025 8:47 AM EDT us Pepe Anthony MD LAB BLOOD ORDERABLES Final Resu lt [facility]) [address] [place] [address] * (ABNORMAL) CBC (04/28/2025 3:21 AM EDT) Auto WBC 19.72(H) 4.00 - 10.60 10*3/uL 04/28/2025 4:06 AM EDT [facility] ([facility]) RBC 2.90(L) 4.20 - 5.70 10*6/uL 04/28/2025 4:06 AM EDT [facility] ([facility]) Hemoglobin 9.4(L) 13.0 - 17.0 g/dL 04/28/2025 4:06 AM EDT [facility] ([facility]) Hematocrit 27.2(L) 39.0 - 50.0 % 04/28/2025 4:06 AM EDT [facility] ([facility]) MCV 93.8 82.0 - 98.0 fL 04/28/2025 4:06 AM EDT [facility] ([facility]) MCH 32.4 27.0 - 33.0 pg 04/28/2025 4:06 AM EDT [facility] ([facility]) MCHC 34.6 32.0 - 35.0 g/dL 04/28/2025 4:06 AM EDT [facility] ([facility]) RDW 14.3 11.5 - 15.0 % 04/28/2025 4:06 AM EDT [facility] ([facility]) Platelets 163 150 - 400 10*3/uL 04/28/2025 4:06 AM EDT [facility] ([facility]) Blood Venous blood specimen / Unknown Arterial Line / Unknown 04/28/2025 3:21 AM EDT 04/28/2025 3:41 AM EDT us Pepe Anthony MD LAB BLOOD ORDERABLES Final Resu lt [facility]) [address] [place] [address] * Phosphorus (04/28/2025 3:06 AM EDT) Phosphorus 4.4 2.5 - 5.0 mg/dL 04/28/2025 3:38 AM EDT [facility]) Blood Venous blood specimen / Unknown Arterial Line / Unknown 04/28/2025 3:06 AM EDT 04/28/2025 3:16 AM EDT us Pepe Anthony MD LAB BLOOD ORDERABLES Final Resu lt [facility]) [address] [place] [address] * Magnesium (04/28/2025 3:06 AM EDT) Pathologist [facility] [place] Magnesium 1.9 1.9 - 2.7 mg/dL 04/28/2025 3:38 AM EDT [facility] ([facility]) Blood Venous blood specimen / Unknown Arterial Line / Unknown 04/28/2025 3:06 AM EDT 04/28/2025 3:16 AM EDT us Pepe Anthony MD LAB BLOOD ORDERABLES Final Resu lt [facility] ([facility]) [address] [place] [address] * (ABNORMAL) Basic metabolic panel (04/28/2025 3:06 AM EDT) Pathologist [facility] [place] Sodium 129(L) 136 - 145 mmol/L 04/28/2025 3:38 AM EDT [facility] ([facility]) Potassium 4.3 3.5 - 5.1 mmol/L 04/28/2025 3:38 AM EDT [facility] ([facility]) Chloride 100 98 - 107 mmol/L 04/28/2025 3:38 AM EDT [facility] ([facility]) CO2 16(L) 21 - 31 mmol/L 04/28/2025 3:38 AM EDT [facility] ([facility]) BUN 41(H) 7 - 25 mg/dL 04/28/2025 3:38 AM EDT [facility] ([facility]) Creatinine 3.23(H) 0.70 - 1.30 mg/dL 04/28/2025 3:38 AM EDT [facility] ([facility]) Glucose 151(H) 70 - 100 mg/dL 04/28/2025 3:38 AM EDT [facility] ([facility]) Calcium 7.0(L) 8.6 - 10.3 mg/dL 04/28/2025 3:38 AM EDT [facility] ([facility]) Anion Gap 17 7 - 20 mmol/L 04/28/2025 3:38 AM EDT [facility] ([facility]) eGFR 20.0(L) >60.0 mL/min/1. 73m*2 04/28/2025 3:38 AM EDT [facility]) Comment:[facility] s estimated glomerular filtration rate (eGFR) will [...] any one group of individuals. BUN/Creatinine Ratio 12.7 04/18 3:38 AM EDT [facility] ([facility]) Blood Venous blood specimen / Unknown Arterial Line / Unknown 04/28/2025 3:06 AM EDT 04/28/2025 3:16 AM EDT us Zhen Feldman MD LAB BLOOD ORDERABLES Final Resul t [facility]) [address] [place] [address] * XR abdomen 1 view (04/28/2025 12:50 AM EDT) Anatomical Region Laterality Modality Abdomen Computed Radiogr aphy 04/28/2025 1:05 AM EDT Impressions 04/28/2025 1:16 AM EDT * Nonobstructive bowel gas pattern. Approved by:Phill Orellana 1:10 AM. I, El Gomes,have reviewed the image(s) and agree with the findings in this report. Electronically signed: El Gomes. Narrative 04/28/2025 1:16 AM EDT XR ABDOMEN 1 VIEW 04/28/2025 12:37 AM CLINICAL INDICATIONS: Abdominal distention COMPARISON: None FINDINGS: Nonobstructive bowel gas pattern. Degenerative changes of the bilateral hips and SI joints. Seminal vesicle/vas deferens calcifications. Left femoral hemodialysis catheter noted. Combined automatic implantable cardiac defibrillator/pacing device leads. No acute abnormality within the visualized chest. Procedure Note El Gomes MD - 04/28/2025 XR ABDOMEN 1 VIEW 04/28/2025 12:37 AM CLINICAL INDICATIONS: Abdominal distention COMPARISON: None FINDINGS: Nonobstructive bowel gas pattern. Degenerative changes of the bilateralhips and SI joints. Seminal vesicle/vas deferens calcifications. Left femoral hemodialysiscatheter noted. Combined automatic implantable cardiac defibrillator/pacing device leads.No acute abnormality within the visualized chest. IMPRESSION: *Nonobstructive bowel gas pattern. Approved by:Phill Orellana 1:10 AM. I, El Gomes,have reviewed the image(s) and agree with the findingsin this report. Electronically signed: El Gomes. us Pepe Anthony MD IMG XR PROCEDURES Final Result * Phosphorus (04/28/2025 12:06 AM EDT) Phosphorus 3.7 2.5 - 5.0 mg/dL 04/28/2025 12:47 AM EDT [facility] ([facility]) Blood Arterial blood specimen / Unknown Arterial Line / Unknown 04/28/2025 12:06 AM EDT 04/28/2025 12:12 AM EDT us Pepe Anthony MD LAB BLOOD ORDERABLES Final Resu lt [facility] [address] [place] [address] * Magnesium (04/28/2025 12:06 AM EDT) Magnesium 1.9 1.9 - 2.7 mg/dL 04/28/2025 12:47 AM EDT [facility] ([facility]) Blood Arterial blood specimen / Unknown Arterial Line / Unknown 04/28/2025 12:06 AM EDT 04/28/2025 12:12 AM EDT us Pepe Anthony MD LAB BLOOD ORDERABLES Final Resu lt [facility] ([facility]) [address] [place] [address] * (ABNORMAL) Basic metabolic panel (04/28/2025 12:06 AM EDT) Sodium 129(L) 136 - 145 mmol/L 04/28/2025 12:48 AM EDT [facility] ([facility]) Potassium 4.1 3.5 - 5.1 mmol/L 04/28/2025 12:48 AM EDT [facility] ([facility]) Chloride 101 98 - 107 mmol/L 04/28/2025 12:48 AM EDT [facility] ([facility]) CO2 13(LL) 21 - 31 mmol/L 04/28/2025 12:48 AM EDT [facility] ([facility]) BUN 44(H) 7 - 25 mg/dL 04/28/2025 12:48 AM EDT [facility] ([facility]) Creatinine 3.55(H) 0.70 - 1.30 mg/dL 04/28/2025 12:48 AM EDT [facility] ([facility]) Glucose 161(H) 70 - 100 mg/dL 04/28/2025 12:48 AM EDT [facility] ([facility]) Calcium 6.1(L) 8.6 - 10.3 mg/dL 04/28/2025 12:48 AM T [facility] ([facility]) Anion Gap 19 7 - 20 mmol/L 04/28/2025 12:48 AM T [facility] ([facility]) eGFR 17.8(L) >60.0 mL/min/1. 73m*2 04/28/2025 12:48 AM T [facility] ([facility]) Comment:[facility] s estimated glomerular filtration rate (eGFR) will [...] any one group of individuals. BUN/Creatinine Ratio 12.4 04/18 12:48 AM EDT [facility] ([facility]) Blood Arterial blood specimen / Unknown Arterial Line / Unknown 04/28/2025 12:06 AM EDT 04/28/2025 12:12 AM EDT us Pepe Anthony MD LAB BLOOD ORDERABLES Final Resu lt [facility] ([facility]) [address] [place] [address] * (ABNORMAL) Magnesium (04/27/2025 7:57 PM EDT) Magnesium 1.8(L) 1.9 - 2.7 mg/dL 04/27/2025 9:26 PM EDT [facility] ([facility]) Blood Venous blood specimen / Unknown Arterial Line / Unknown 04/27/2025 7:57 PM EDT 04/27/2025 8:11 PM EDT us Pepe Anthony MD LAB BLOOD ORDERABLES Final Resu lt Performing Organization Address City/[facility]/ZIP Co de Phone Number [facility] ([facility]) [address] [place] [address] * (ABNORMAL) Hemoglobin and hematocrit, blood (04/27/2025 7:57 PM EDT) Hemoglobin 10.6(L) 13.0 - 17.0 g/dL 04/27/2025 8:28 PM EDT [facility] ([facility]) Hematocrit 30.2(L) 39.0 - 50.0 % 04/27/2025 8:28 PM EDT [facility] ([facility]) Blood Venous blood specimen / Unknown Arterial Line / Unknown 04/27/2025 7:57 PM EDT 04/27/2025 8:10 PM EDT us Pepe Anthony MD LAB BLOOD ORDERABLES Final Resu lt [facility] ([facility]) [address] [place] [address] * (ABNORMAL) Basic metabolic panel (04/27/2025 7:57 PM EDT) Sodium 128(L) 136 - 145 mmol/L 04/27/2025 8:36 PM EDT [facility] ([facility]) Potassium 4.6 3.5 - 5.1 mmol/L 04/27/2025 8:36 PM EDT [facility] ([facility]) Chloride 98 98 - 107 mmol/L 04/27/2025 8:36 PM EDT [facility] ([facility]) CO2 15(L) 21 - 31 mmol/L 04/27/2025 8:36 PM EDT [facility] ([facility]) BUN 47(H) 7 - 25 mg/dL 04/27/2025 8:36 PM EDT [facility] ([facility]) Creatinine 3.53(H) 0.70 - 1.30 mg/dL 04/27/2025 8:36 PM EDT [facility] ([facility]) Glucose 140(H) 70 - 100 mg/dL 04/27/2025 8:36 PM EDT [facility] ([facility]) Calcium 6.5(L) 8.6 - 10.3 mg/dL 04/27/2025 8:36 PM EDT [facility] ([facility]) Anion Gap 20 7 - 20 mmol/L 04/27/2025 8:36 PM EDT [facility] ([facility]) eGFR 17.9(L) >60.0 mL/min/1. 73m*2 04/27/2025 8:36 PM EDT [facility] ([facility]) Comment:[facility] s estimated glomerular filtration rate (eGFR) will [...] any one group of individuals. BUN/Creatinine Ratio 13.3 04/18 8:36 PM EDT [facility]) Blood Venous blood specimen / Unknown Arterial Line / Unknown 04/27/2025 7:57 PM EDT 04/27/2025 8:11 PM EDT us Zhen Feldman MD LAB BLOOD ORDERABLES Final Resul t Performing Organization Address City/[facility]/ZIP Co de Phone Number [facility]) [address] [place] [address] * Phosphorus (04/27/2025 5:38 PM EDT) Phosphorus 3.0 2.5 - 5.0 mg/dL 04/27/2025 6:01 PM EDT [facility]) Blood Arterial blood specimen / Unknown 04/27/2025 5:38 PM EDT 04/27/2025 5:38 PM EDT us Pepe Anthony MD LAB BLOOD ORDERABLES Final Resu lt Performing Organization Address [facility] Co de Phone Number [facility]) [address] [place] [address] * (ABNORMAL) Magnesium (04/27/2025 5:38 PM EDT) Magnesium 1.6(L) 1.9 - 2.7 mg/dL 04/27/2025 6:01 PM EDT [facility]) Blood Arterial blood specimen / Unknown 04/27/2025 5:38 PM EDT 04/27/2025 5:38 PM EDT us Pepe Anthony MD LAB BLOOD ORDERABLES Final Resu lt Performing Organization Address City/[facility]/ZIP Co de Phone Number [facility]) [address] [place] [address] * (ABNORMAL) Basic metabolic panel (04/27/2025 5:38 PM EDT) Sodium 129(L) 136 - 145 mmol/L 04/27/2025 6:01 PM [facility] ([facility]) Potassium 4.5 3.5 - 5.1 mmol/L 04/27/2025 6: PM [facility] ([facility]) Chloride 100 98 - 107 mmol/L 04/27/2025 6:01 PM [facility] ([facility]) CO2 16(L) 21 - 31 mmol/L 04/27/2025 6: PM [facility] ([facility]) BUN 46(H) 7 - 25 mg/dL 04/27/2025 6:01 [facility] ([facility]) Creatinine 3.57(H) 0.70 - 1.30 mg/dL 04/27/2025 6: [facility] ([facility]) Glucose 134(H) 70 - 100 mg/dL 04/27/2025 6:01 PM [facility] ([facility]) Calcium 6.7(L) 8.6 - 10.3 mg/dL 04/27/2025 6: [facility] ([facility]) Anion Gap 18 7 - 20 mmol/L 04/27/2025 6:01 [facility] ([facility]) eGFR 17.7(L) >60.0 mL/min/1. 73m*2 04/27/2025 6: [facility] ([facility]) Comment:[facility] s estimated glomerular filtration rate (eGFR) will [...] any one group of individuals. BUN/Creatinine Ratio 12.9 04/18 6:01 PM EDT [facility] ([facility]) Blood Arterial blood specimen / Unknown 04/27/2025 5:38 PM EDT 04/27/2025 5:38 PM EDT us Pepe Anthony MD LAB BLOOD ORDERABLES Final Resu lt Performing Organization Address [facility]/ZIP Co de Phone Number [facility] ([facility]) [address] [place] [address] * (ABNORMAL) POCT glucose meter (04/27/2025 5:14 PM EDT) Glucose POC 148(H) 70 - 105 mg/dL 04/27/2025 5:31 PM EDT [facility] ([facility]) Comment:[email or web address] Blood Capillary blood specimen / Unknown 04/27/2025 5:14 PM EDT 04/27/2025 5:31 PM EDT Narrative [facility] ([facility]) - 04/27/2025 5:31 PM EDT Waived Testing in the ED is performed under the ED CLIA certificate #[id number]. us Pepe Anthony MD LAB BLOOD ORDERABLES Final Resu lt Performing Organization Address [facility] Co de Phone Number [facility] ([facility]) [address] [place] [address] * (ABNORMAL) POCT glucose meter (04/27/2025 12:01 PM EDT) Glucose POC 153(H) 70 - 105 mg/dL 04/27/2025 12:12 PM EDT [facility] ([facility]) Comment:[email or web address] Blood Capillary blood specimen / Unknown 04/27/2025 12:01 PM EDT 04/27/2025 12:12 PM EDT Narrative [facility] ([facility]) - 04/27/2025 12:12 PM EDT Waived Testing in the ED is performed under the ED CLIA certificate #[id number]. us Pepe Anthony MD LAB BLOOD ORDERABLES Final Resu lt [facility]) [address] [place] [address] * (ABNORMAL) POCT glucose meter (04/27/2025 10:07 AM EDT) Glucose POC 170(H) 70 - 105 mg/dL 04/27/2025 10:18 AM EDT [facility] ([facility]) Comment:[email or web address] Blood Capillary blood specimen / Unknown 04/27/2025 10:07 AM EDT 04/27/2025 10:18 AM EDT Narrative [facility] ([facility]) - 04/27/2025 10:18 AM EDT Waived Testing in the ED is performed under the ED CLIA certificate #[id number]. us Pepe Anthony MD LAB BLOOD ORDERABLES Final Resu lt Performing Organization Address [facility]/ZIP Co de Phone Number [facility] ([facility]) [address] [place], [place] [id number] * Phosphorus (04/27/2025 5:36 AM EDT) Phosphorus 3.5 2.5 - 5.0 mg/dL 04/27/2025 6:24 AM EDT [facility] ([facility]) Blood Arterial blood specimen / Unknown Arterial Line / Unknown 04/27/2025 5:36 AM EDT 04/27/2025 5:54 AM EDT us Pepe Anthony MD LAB BLOOD ORDERABLES Final Resu lt [facility] ([facility]) [address] [place] [address] * Magnesium (04/27/2025 5:36 AM EDT) Magnesium 1.9 1.9 - 2.7 mg/dL 04/27/2025 6:24 AM EDT [facility] ([facility]) Blood Arterial blood specimen / Unknown Arterial Line / Unknown 04/27/2025 5:36 AM EDT 04/27/2025 5:54 AM EDT us Pepe Anthony MD LAB BLOOD ORDERABLES Final Resu lt [facility] ([facility]) [address] [place] [address] * (ABNORMAL) Basic metabolic panel (04/27/2025 5:36 AM EDT) Sodium 127(L) 136 - 145 mmol/L 04/27/2025 6:24 AM EDT [facility] ([facility]) Potassium 4.5 3.5 - 5.1 mmol/L 04/27/2025 6:24 AM EDT [facility] ([facility]) Chloride 98 98 - 107 mmol/L 04/27/2025 6:24 AM EDT [facility] ([facility]) CO2 16(L) 21 - 31 mmol/L 04/27/2025 6:24 AM EDT [facility] ([facility]) BUN 41(H) 7 - 25 mg/dL 04/27/2025 6:24 AM EDT [facility] ([facility]) Creatinine 3.03(H) 0.70 - 1.30 mg/dL 04/27/2025 6:24 AM EDT [facility] ([facility]) Glucose 175(H) 70 - 100 mg/dL 04/27/2025 6:24 AM EDT [facility] ([facility]) Calcium 7.1(L) 8.6 - 10.3 mg/dL 04/27/2025 6:24 AM EDT [facility] ([facility]) Anion Gap 18 7 - 20 mmol/L 04/27/2025 6:24 AM EDT [facility] ([facility]) eGFR 21.5(L) >60.0 mL/min/1. 73m*2 04/27/2025 6:24 AM EDT [facility] ([facility]) Comment:[facility] s estimated glomerular filtration rate (eGFR) will [...] any one group of individuals. BUN/Creatinine Ratio 13.5 04/18 6:24 AM EDT [facility] ([facility]) Blood Arterial blood specimen / Unknown Arterial Line / Unknown 04/27/2025 5:36 AM EDT 04/27/2025 5:54 AM EDT us Pepe Raj KLEIN LAB BLOOD ORDERABLES Final Resu lt [facility] ([facility]) [address] [place] [address] * (ABNORMAL) CBC (04/27/2025 5:36 AM EDT) Auto WBC 8.21 4.00 - 10.60 10*3/uL 04/27/2025 6:24 AM EDT [facility] ([facility]) RBC 3.50(L) 4.20 - 5.70 10*6/uL 04/27/2025 6:24 AM EDT [facility] ([facility]) Hemoglobin 11.2(L) 13.0 - 17.0 g/dL 04/27/2025 6:24 AM EDT [facility] ([facility]) Hematocrit 32.0(L) 39.0 - 50.0 % 04/27/2025 6:24 AM EDT [facility] ([facility]) MCV 91.4 82.0 - 98.0 fL 04/27/2025 6:24 AM EDT [facility] ([facility]) MCH 32.0 27.0 - 33.0 pg 04/27/2025 6:24 AM EDT [facility] ([facility]) MCHC 35.0 32.0 - 35.0 g/dL 04/27/2025 6:24 AM EDT [facility] ([facility]) RDW 14.0 11.5 - 15.0 % 04/27/2025 6:24 AM EDT [facility] ([facility]) Platelets 287 150 - 400 10*3/uL 04/27/2025 6:24 AM EDT [facility] ([facility]) Blood Venous blood specimen / Unknown Arterial Line / Unknown 04/27/2025 5:36 AM EDT 04/27/2025 5:54 AM EDT us Pepe Anthony MD LAB BLOOD ORDERABLES Final Resu lt [facility] ([facility]) [address] [place] [address] * Co-oximetry (04/27/2025 4:25 AM EDT) Oxyhemoglobin 36.0 % 04/27/2025 4:31 AM EDT [facility] RESPIRATORY THERAPY Total Hemoglobin 11.5 g/dL 04/27/20 4:31 AM EDT [facility] RESPIRATORY THERAPY O2 Sat 36.4 % 04/27/2025 4:31 AM EDT [facility] RESPIRATORY THERAPY Blood Mixed venous blood specimen / Unknown Arterial Line / Unknown 04/27/2025 4:25 AM EDT 04/27/2025 4:25 AM EDT us Pepe Anthony MD LAB BLOOD ORDERABLES Final Resu lt [facility] RESPIRATORY THERAPY [address] [place] [address], [place] * Phosphorus (04/26/2025 11:59 PM EDT) Phosphorus 3.4 2.5 - 5.0 mg/dL 04/27/2025 12:48 AM EDT [facility] ([facility]) Blood Arterial blood specimen / Unknown Arterial Line / Unknown 04/26/2025 11:59 PM EDT 04/27/2025 12:24 AM EDT us Pepe Anthony MD LAB BLOOD ORDERABLES Final Resu lt Performing Organization Address City/[facility]/ZIP Co de Phone Number [facility] ([facility]) [address] [place] [address] * Magnesium (04/26/2025 11:59 PM EDT) Magnesium 2.0 1.9 - 2.7 mg/dL 04/27/2025 12:48 AM EDT [facility] ([facility]) Blood Arterial blood specimen / Unknown Arterial Line / Unknown 04/26/2025 11:59 PM EDT 04/27/2025 12:24 AM EDT us Pepe Anthony MD LAB BLOOD ORDERABLES Final Resu lt Performing Organization Address [facility] de Phone Number [facility] ([facility]) [address] [place] [address] * (ABNORMAL) Basic metabolic panel (04/26/2025 11:59 PM EDT) Sodium 127(L) 136 - 145 mmol/L 04/27/2025 12:48 AM EDT [facility] ([facility]) Potassium 4.3 3.5 - 5.1 mmol/L 04/27/2025 12:48 AM EDT [facility] ([facility]) Chloride 98 98 - 107 mmol/L 04/27/2025 12:48 AM EDT [facility] ([facility]) CO2 15(L) 21 - 31 mmol/L 04/27/2025 12:48 AM EDT [facility] ([facility]) BUN 41(H) 7 - 25 mg/dL 04/27/2025 12:48 AM EDT [facility] ([facility]) Creatinine 2.92(H) 0.70 - 1.30 mg/dL 04/27/2025 12:48 AM EDT [facility] ([facility]) Glucose 181(H) 70 - 100 mg/dL 04/27/2025 12:48 AM EDT [facility] ([facility]) Calcium 6.8(L) 8.6 - 10.3 mg/dL 04/27/2025 12:48 AM EDT [facility] ([facility]) Anion Gap 18 7 - 20 mmol/L 04/27/2025 12:48 AM EDT [facility] ([facility]) eGFR 22.5(L) >60.0 mL/min/1. 73m*2 04/27/2025 12:48 AM EDT [facility] ([facility]) Comment:[facility] s estimated glomerular filtration rate (eGFR) will [...] any one group of individuals. BUN/Creatinine Ratio 14.0 04/18 12:48 AM EDT [facility] ([facility]) Blood Arterial blood specimen / Unknown Arterial Line / Unknown 04/26/2025 11:59 PM EDT 04/27/2025 12:24 AM EDT us Pepe Anthony MD LAB BLOOD ORDERABLES Final Resu lt [facility]) [address] [place] [address] * Phosphorus (04/26/2025 4:24 PM EDT) Phosphorus 2.8 2.5 - 5.0 mg/dL 04/26/2025 4:59 PM EDT [facility] ([facility]) Blood Arterial blood specimen / Unknown Arterial Line / Unknown 04/26/2025 4:24 PM EDT 04/26/2025 4:38 PM EDT us Pepe Anthony MD LAB BLOOD ORDERABLES Final Resu lt [facility] ([facility]) [address] [place] [address] * (ABNORMAL) Basic metabolic panel (04/26/2025 4:24 PM EDT) Sodium 127(L) 136 - 145 mmol/L 04/26/2025 4:59 PM EDT [facility] ([facility]) Potassium 4.1 3.5 - 5.1 mmol/L 04/26/2025 4:59 PM EDT [facility] ([facility]) Chloride 97(L) 98 - 107 mmol/L 04/26/2025 4:59 PM EDT [facility] ([facility]) CO2 18(L) 21 - 31 mmol/L 04/26/2025 4:59 PM EDT [facility] ([facility]) BUN 39(H) 7 - 25 mg/dL 04/26/2025 4:59 PM EDT [facility] ([facility]) Creatinine 2.84(H) 0.70 - 1.30 mg/dL 04/26/2025 4:59 PM EDT [facility] ([facility]) Glucose 168(H) 70 - 100 mg/dL 04/26/2025 4:59 PM EDT [facility] ([facility]) Calcium 7.1(L) 8.6 - 10.3 mg/dL 04/26/2025 4:59 PM EDT [facility] ([facility]) Anion Gap 16 7 - 20 mmol/L 04/26/2025 4:59 PM EDT [facility] ([facility]) eGFR 23.3(L) >60.0 mL/min/1. 73m*2 04/26/2025 4:59 PM EDT [facility] ([facility]) Comment:[facility] s estimated glomerular filtration rate (eGFR) will [...] any one group of individuals. BUN/Creatinine Ratio 13.7 03/2025 4:59 PM EDT [facility] ([facility]) Blood Arterial blood specimen / Unknown Arterial Line / Unknown 04/26/2025 4:24 PM EDT 04/26/2025 4:38 PM EDT us Pepe Anthony MD LAB BLOOD ORDERABLES Final Resu lt Performing Organization Address [facility]/ZIP Co de Phone Number [facility]) [address] [place] [phone] * Magnesium (04/26/2025 4:24 PM EDT) Magnesium 2.1 1.9 - 2.7 mg/dL 04/26/2025 4:59 PM EDT [facility]) Blood Arterial blood specimen / Unknown Arterial Line / Unknown 04/26/2025 4:24 PM EDT 04/26/2025 4:38 PM EDT us Pepe Anthony MD LAB BLOOD ORDERABLES Final Resu lt Performing Organization Address [facility] Co de Phone Number [facility]) [address] [place] [address] * Urea nitrogen, urine (04/26/2025 8:40 AM EDT) Urea Nitrogen, Ur 237 mg/dL 04/26/2025 9:11 AM EDT [facility]) Urine Urine specimen obtained by clean catch procedure / Unknown Non-blood Collection / Unknown 04/26/2025 8:40 AM EDT 04/26/2025 8:52 AM EDT us Pepe Anthony MD LAB URINE ORDERABLES Final Resu lt Performing Organization Address City/[facility]/ZIP Co de Phone Number [facility] ([facility]) [address] [place], [place] [id number] * Sodium, urine, random (04/26/2025 8:40 AM EDT) Sodium, Ur 92 mmol/L 04/26/2025 9:11 AM EDT [facility] ([facility]) Urine Urine specimen obtained by clean catch procedure / Unknown Non-blood Collection / Unknown 04/26/2025 8:40 AM EDT 04/26/2025 8:52 AM EDT us Pepe Anthony MD LAB URINE ORDERABLES Final Resu lt [facility] ([facility]) [address] [place] [address] * Creatinine, urine, random (04/26/2025 8:40 AM EDT) Creatinine, Ur 83.0 26 - 299 mg/dL 04/26/2025 9:11 AM EDT [facility] ([facility]) Urine Urine specimen obtained by clean catch procedure / Unknown Non-blood Collection / Unknown 04/26/2025 8:40 AM EDT 04/26/2025 8:52 AM EDT us Pepe Anthony MD LAB URINE ORDERABLES Final Resu lt [facility] ([facility]) [address] [place] [address] * (ABNORMAL) Urinalysis (04/26/2025 8:40 AM EDT) Color, Urine Light-Yellow Colorless, Yellow, Light-Yellow 04/26/2025 9:27 AM EDT [facility] ([facility]) Clarity, Urine Clear Clear 04/26/2025 9:27 AM EDT [facility] ([facility]) pH, Urine 5.0 5.0 - 8.0 pH 04/26/2025 9:27 AM EDT [facility] ([facility]) Leukocytes, Urine Negative Negative 04/26/2025 9:27 AM EDT [facility] ([facility]) Nitrite, Urine Negative Negative 04/26/2025 9:27 AM EDT [facility] ([facility]) Protein, Urine Negative Negative mg/dL 04/26/2025 9:27 AM EDT [facility] ([facility]) Glucose, Urine 250(A) Normal mg/dL 04/26/2025 9:27 AM EDT [facility] ([facility]) Bilirubin, Urine Negative Negative 04/26/2025 9:27 AM EDT [facility] ([facility]) Specific Spring, Urine 1.013 1.010 - 1.030 04/26/2025 9:27 AM EDT [facility] ([facility]) Ketones, Urine Negative Negative mg/dL 04/26/2025 9:27 AM EDT [facility] ([facility]) Blood, Urine Negative Negative 04/26/2025 9:27 AM EDT [facility] ([facility]) Urobilinogen, Urine Normal Normal mg/dL 04/26/2025 9:27 AM EDT [facility] ([facility]) Urine Urine specimen obtained by clean catch procedure / Unknown Non-blood Collection / Unknown 04/26/2025 8:40 AM EDT 04/26/2025 8:52 AM EDT Narrative [facility] ([facility]) - 04/26/2025 9:27 AM EDT Microscopics not performed on urines with negative chemical reactions unless requested on original order. us Pepe Anthony MD LAB URINE ORDERABLES Final Resu lt [facility] ([facility]) [address] [place] [address] * (ABNORMAL) Magnesium (04/26/2025 3:05 AM EDT) Magnesium 1.8(L) 1.9 - 2.7 mg/dL 04/26/2025 3:42 AM EDT [facility] ([facility]) Blood Venous blood specimen / Unknown Arterial Line / Unknown 04/26/2025 3:05 AM EDT 04/26/2025 3:17 AM EDT us Pepe Anthony MD LAB BLOOD ORDERABLES Final Resu lt [facility] ([facility]) [address] [place] [address] * (ABNORMAL) Basic metabolic panel (04/26/2025 3:05 AM EDT) Sodium 129(L) 136 - 145 mmol/L 04/26/2025 3:42 AM EDT [facility] ([facility]) Potassium 4.2 3.5 - 5.1 mmol/L 04/26/2025 3:42 AM EDT [facility] ([facility]) Chloride 100 98 - 107 mmol/L 04/26/2025 3:42 AM EDT [facility] ([facility]) CO2 19(L) 21 - 31 mmol/L 04/26/2025 3:42 AM EDT [facility] ([facility]) BUN 40(H) 7 - 25 mg/dL 04/26/2025 3:42 AM EDT [facility] ([facility]) Creatinine 2.83(H) 0.70 - 1.30 mg/dL 04/26/2025 3:42 AM EDT [facility] ([facility]) Glucose 128(H) 70 - 100 mg/dL 04/26/2025 3:42 AM EDT [facility] ([facility]) Calcium 7.2(L) 8.6 - 10.3 mg/dL 04/26/2025 3:42 AM EDT [facility] ([facility]) Anion Gap 14 7 - 20 mmol/L 04/26/2025 3:42 AM EDT [facility] ([facility]) eGFR 23.4(L) >60.0 mL/min/1. 73m*2 04/26/2025 3:42 AM EDT [facility] ([facility]) Comment:[facility] s estimated glomerular filtration rate (eGFR) will [...] any one group of individuals. BUN/Creatinine Ratio 14.1 03/2025 3:42 AM EDT [facility]) Blood Venous blood specimen / Unknown Arterial Line / Unknown 04/26/2025 3:05 AM EDT 04/26/2025 3:17 AM EDT us Pepe Anthony MD LAB BLOOD ORDERABLES Final Resu lt Performing Organization Address City/[facility]/ZIP Co de Phone Number [facility]) [address] [place], [place] [id number] * Phosphorus (04/26/2025 3:05 AM EDT) Phosphorus 2.6 2.5 - 5.0 mg/dL 04/26/2025 3:42 AM EDT [facility]) Blood Venous blood specimen / Unknown Arterial Line / Unknown 04/26/2025 3:05 AM EDT 04/26/2025 3:17 AM EDT us Pepe Anthony MD LAB BLOOD ORDERABLES Final Resu lt Performing Organization Address City/[facility]/ZIP Co de Phone Number [facility]) [address] [place] [address] * (ABNORMAL) CBC (04/26/2025 3:05 AM EDT) Auto WBC 6.84 4.00 - 10.60 10*3/uL 04/26/2025 3:37 AM EDT [facility]) RBC 3.17(L) 4.20 - 5.70 10*6/uL 04/26/2025 3:37 AM EDT [facility]) Hemoglobin 10.2(L) 13.0 - 17.0 g/dL 04/26/2025 3:37 AM EDT [facility] ([facility]) Hematocrit 29.3(L) 39.0 - 50.0 % 04/26/2025 3:37 AM EDT [facility] ([facility]) MCV 92.4 82.0 - 98.0 fL 04/26/2025 3:37 AM EDT [facility] ([facility]) MCH 32.2 27.0 - 33.0 pg 04/26/2025 3:37 AM EDT [facility] ([facility]) MCHC 34.8 32.0 - 35.0 g/dL 04/26/2025 3:37 AM EDT [facility] ([facility]) RDW 14.0 11.5 - 15.0 % 04/26/2025 3:37 AM EDT [facility] ([facility]) Platelets 233 150 - 400 10*3/uL 04/26/2025 3:37 AM EDT [facility] ([facility]) Blood Venous blood specimen / Unknown Arterial Line / Unknown 04/26/2025 3:05 AM EDT 04/26/2025 3:17 AM EDT us Pepe Anthony MD LAB BLOOD ORDERABLES Final Resu lt [facility] ([facility]) [address] [place] [address] * Co-oximetry (04/26/2025 2:39 AM EDT) [facility] Oxyhemoglobin 58.7 % 04/26/2025 2:41 AM EDT [facility] THER[facility] Total Hemoglobin 10.9 g/dL 04/26/20 25 2:41 AM EDT [facility]ERAP[facility] O2 Sat 59.6 % 04/26/2025 2:41 AM EDT [facility] THERAP[facility] Blood Mixed venous blood specimen / Unknown Arterial Line / Unknown 04/26/2025 2:39 AM EDT 04/26/2025 2:39 AM EDT us Pepe Raj MD LAB BLOOD ORDERABLES Final Resu lt [facility] RESPIRATORY THERAPY [address] [place] [address], [place] * XR chest 1 view (04/25/2025 4:17 PM EDT) Anatomical Region Laterality Modality Chest Computed Radiogr aphy 04/25/2025 4:26 PM EDT Impressions 04/25/2025 4:31 PM EDT Tip of the Assawoman-Shannan catheter appears to be in the right main pulmonary artery. No new acute pulmonary abnormalities displayed. Electronically signed: Ralph Mcgovern. Narrative 04/25/2025 4:31 PM EDT History: Assessing Assawoman-Shannan catheter Exam/Technique: Portable upright AP chest Comparison: Chest CTA from 04/23/2025. Findings: The tip of the right jugular Assawoman-Shannan catheter appears to overlap when appropriate EKG leads, apparently in the proximal portion of the right main pulmonary artery. No interval change is demonstrated with no new acute pulmonary or pleural abnormalities displayed on this single. Mild cardiomegaly appears unchanged. Cardiac electrical device unchanged. Procedure Note Ralph Mcgovern MD - 04/25/2025 History: Assessing Assawoman-Shannan catheter Exam/Technique: Portable upright AP chest Comparison: Chest CTA from 04/23/2025. Findings: The tip of the right jugular Assawoman-Shannan catheter appears tooverlap when appropriate EKG leads, apparently in the proximal portion of theright main pulmonary artery. No interval change is demonstrated with no new acute pulmonary orpleural abnormalities displayed on this single. Mild cardiomegaly appears unchanged. Cardiac electrical deviceunchanged. IMPRESSION: Tip of the Assawoman-Shannan catheter appears to be in the right main pulmonary artery. No new acute pulmonary abnormalities displayed. Electronically signed: Ralph Mcgovern. us Pepe Anthony MD IMG XR PROCEDURES Final Result * (ABNORMAL) Basic metabolic panel (04/25/2025 1:12 PM EDT) Sodium 132(L) 136 - 145 mmol/L 04/25/2025 1:41 PM EDT [facility] ([facility]) Potassium 3.4(L) 3.5 - 5.1 mmol/L 04/25/2025 1:41 PM EDT [facility] ([facility]) Chloride 99 98 - 107 mmol/L 04/25/2025 1:41 PM EDT [facility] ([facility]) CO2 24 21 - 31 mmol/L 04/25/2025 1:41 PM T [facility] ([facility]) BUN 40(H) 7 - 25 mg/dL 04/25/2025 1:41 PM T [facility] ([facility]) Creatinine 2.96(H) 0.70 - 1.30 mg/dL 04/25/2025 1:41 PM T [facility] ([facility]) Glucose 130(H) 70 - 100 mg/dL 04/25/2025 1:41 PM T [facility] ([facility]) Calcium 7.1(L) 8.6 - 10.3 mg/dL 04/25/2025 1:41 PM T [facility] ([facility]) Anion Gap 12 7 - 20 mmol/L 04/25/2025 1:41 PM T [facility] ([facility]) eGFR 22.2(L) >60.0 mL/min/1. 73m*2 04/25/2025 1:41 PM T [facility] ([facility]) Comment:[facility] s estimated glomerular filtration rate (eGFR) will [...] any one group of individuals. BUN/Creatinine Ratio 13.5 02/2025 1:41 PM T [facility] ([facility]) Blood Venous blood specimen / Unknown Arterial Line / Unknown 04/25/2025 1:12 PM EDT 04/25/2025 1:18 PM EDT us Pepe Anthony MD LAB BLOOD ORDERABLES Final Resu lt Performing Organization Address City/[facility]/ZIP Co de Phone Number [facility]) [address] [place] [address] * Phosphorus (04/25/2025 3:22 AM EDT) Phosphorus 3.5 2.5 - 5.0 mg/dL 04/25/2025 4:00 AM EDT [facility]) Blood Venous blood specimen / Unknown Arterial Line / Unknown 04/25/2025 3:22 AM EDT 04/25/2025 3:33 AM EDT us Pepe Anthony MD LAB BLOOD ORDERABLES Final Resu lt Performing Organization Address [facility]/ZIP Co de Phone Number [address] [address] * Magnesium (04/25/2025 3:22 AM EDT) Magnesium 1.9 1.9 - 2.7 mg/dL 04/25/2025 4:00 AM EDT [facility]) Blood Venous blood specimen / Unknown Arterial Line / Unknown 04/25/2025 3:22 AM EDT 04/25/2025 3:33 AM EDT us Benedict Pascual MD LAB BLOOD ORDERABLES Final Resul t Performing Organization Address City/[facility]/ZIP Co de Phone Number [facility]) [address] [place] [address] * (ABNORMAL) CBC (04/25/2025 3:22 AM EDT) Auto WBC 6.72 4.00 - 10.60 10*3/uL 04/25/2025 3:49 AM EDT [facility]) RBC 3.24(L) 4.20 - 5.70 10*6/uL 04/25/2025 3:49 AM EDT [facility] ([facility]) Hemoglobin 10.4(L) 13.0 - 17.0 g/dL 04/25/2025 3:49 AM EDT [facility] ([facility]) Hematocrit 30.2(L) 39.0 - 50.0 % 04/25/2025 3:49 AM EDT [facility] ([facility]) MCV 93.2 82.0 - 98.0 fL 04/25/2025 3:49 AM EDT [facility] ([facility]) MCH 32.1 27.0 - 33.0 pg 04/25/2025 3:49 AM EDT [facility] ([facility]) MCHC 34.4 32.0 - 35.0 g/dL 04/25/2025 3:49 AM EDT [facility] ([facility]) RDW 13.9 11.5 - 15.0 % 04/25/2025 3:49 AM EDT [facility] ([facility]) Platelets 205 150 - 400 10*3/uL 04/25/2025 3:49 AM EDT [facility] ([facility]) Blood Venous blood specimen / Unknown Arterial Line / Unknown 04/25/2025 3:22 AM EDT 04/25/2025 3:33 AM EDT us Benedict Pascual MD LAB BLOOD ORDERABLES Final Resul t [facility] ([facility]) [address] [place] [address] * (ABNORMAL) Basic metabolic panel (04/25/2025 3:22 AM EDT) Sodium 131(L) 136 - 145 mmol/L 04/25/2025 4:00 AM EDT [facility] ([facility]) Potassium 3.7 3.5 - 5.1 mmol/L 04/25/2025 4:00 AM EDT [facility] ([facility]) Chloride 99 98 - 107 mmol/L 04/25/2025 4:00 AM EDT [facility] ([facility]) CO2 24 21 - 31 mmol/L 04/25/2025 4:00 AM EDT [facility] ([facility]) BUN 33(H) 7 - 25 mg/dL 04/25/2025 4:00 AM EDT [facility] ([facility]) Creatinine 2.57(H) 0.70 - 1.30 mg/dL 04/25/2025 4:00 AM EDT [facility] ([facility]) Glucose 125(H) 70 - 100 mg/dL 04/25/2025 4:00 AM EDT [facility] ([facility]) Calcium 7.5(L) 8.6 - 10.3 mg/dL 04/25/2025 4:00 AM EDT [facility] ([facility]) Anion Gap 12 7 - 20 mmol/L 04/25/2025 4:00 AM T [facility] ([facility]) eGFR 26.2(L) >60.0 mL/min/1. 73m*2 04/25/2025 4:00 AM EDT [facility] ([facility]) Comment:[facility] s estimated glomerular filtration rate (eGFR) will [...] any one group of individuals. BUN/Creatinine Ratio 12.8 02/2025 4:00 AM EDT [facility] ([facility]) Blood Venous blood specimen / Unknown Arterial Line / Unknown 04/25/2025 3:22 AM EDT 04/25/2025 3:33 AM EDT us Benedict Pascual MD LAB BLOOD ORDERABLES Final Resul t [facility]) [address] [place] [address] * RIGHT HEART CATH, SWAN (FLOW DIRECTED CATH) INSERTION (04/24/2025 3:42 PM EDT) Anatomical Region Laterality Modality Other Narrative 04/24/2025 4:05 PM EDT PROCEDURE PHYSICIAN: Hay William MD . Indications: Kristy Doherty is a 69 y.o. male with ongoing hypotension. His echocardiogram shows reduced left ventricular and right ventricular systolic function. He was referred for right heart catheterization to guide of management. Assistants: None. Procedure Performed: Right heart catheterization. Placement of a DISHWASHER PREPARER Assawoman-Shannan catheter for hemodynamic monitoring. Access into the right internal jugular vein under ultrasound guidance. Methods: Procedure was explained to the patient with risks and benefits; he signed informed consent. he was brought to the lab instructor in a fasting state. The right neck area was prepped and draped in usual fashion. Micropuncture technique was used for access under ultrasound guidance into the right internal jugular vein. A 6-Hungarian x 11 cm sheath was placed. A 6-Hungarian Carrasquillo catheter was used for right heart catheterization and measurement of pressures and calculation of cardiac output using the estimated [place] method. Carrasquillo catheter was removed. Over a wire to the access sheath was upsized to a 9 Hungarian introducer sheath. A DISHWASHER PREPARER Assawoman-Shannan catheter was advanced with the aid of a V18 wire and the distal end of the catheter was advanced to the distal segment of the right pulmonary artery. The Assawoman-Shannan catheter was secured in place. he tolerated the procedure well and was transferred back to the hospital room. Hemodynamic Data: RA: 18 RV: 34/7, 16 PA: 37/24 (30) PCWP: 21 CO: 2.55 CI: 1.3 O2 Sat: PA sat: 33%, AO sat: 96% BP: 89/70 (78) TP PVR: 3.52 Wood units SVR: 1882 Metric units Melanie: 0.72 Cardiac power output: 0.44 Impression/Findings: Moderate elevation of left filling pressures. Moderate to severe elevation of right filling pressures. Moderate pulmonary hypertension. Severely reduced cardiac output and cardiac index. Controlled systemic hypertension. 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 Reduced Melanie consistent with right ventricular failure. Reduced cardiac power output and increased left-sided filling pressures is consistent with left-sided ventricular failure. Findings are consistent with biventricular failure. Successful placement of a DISHWASHER PREPARER Assawoman-Shannan catheter to guide management of heart failure. Plan: Patient will be started on intravenous inotropic therapy. Further recommendations per inpatient Cardiology service. Hay William MD Study Details Other hypotension [I95.89], Right ventricular dysfunction [I51.9] us Elliott Nettles [employer] CV CARDIAC CATH PROCEDURES Final Result * (ABNORMAL) Lipid panel (04/24/2025 4:07 AM EDT) Triglycerides 75 <150 mg/dL 04/24/2025 2:39 PM EDT [facility] ([facility]) Comment: TRIGLYCERIDE REFERENCE RANGE: 20 YEARS AND OLDER CARDIOVASCULAR RISK LESS THAN 150 mg/dL LOW RISK 150 TO 199 mg/dL BORDERLINE RISK 200 mg/dL AND GREATER HIGH RISK Cholesterol 98(L) 120 - 200 mg/dL 04/24/2025 2:39 PM EDT [facility] ([facility]) LDL Calculated 54 0 - 160 mg/dL 04/24/2025 2:39 PM EDT [facility] ([facility]) HDL 29 23 - 92 mg/dL 04/24/2025 2:39 PM EDT [facility] [facility] Non HDL Cholesterol 69 04/24/2025 2:39 PM EDT [facility] ([facility]) Total VLDL-C 15 0 - 40 mg/dL 04/24/2025 2:39 PM EDT [facility] ([facility]) Cholesterol/HDL Ratio 3.4 mg/dL 04/24/2025 2:39 PM EDT [facility] ([facility]) Blood Venous blood specimen / Unknown Venipuncture / Unknown 04/24/2025 4:07 AM EDT 04/24/2025 4:17 AM EDT us Bebo Dominguez MD LAB BLOOD ORDERABLES Final Resul t [facility] ([facility]) [address] [place] [address] * Magnesium (04/24/2025 4:07 AM EDT) Pathologist [facility] [place] Magnesium 1.9 1.9 - 2.7 mg/dL 04/24/2025 5:29 AM EDT [facility] ([facility]) Blood Venous blood specimen / Unknown Venipuncture / Unknown 04/24/2025 4:07 AM EDT 04/24/2025 4:17 AM EDT us Benedict Pascual MD LAB BLOOD ORDERABLES Final Resul t [facility] ([facility]) [address] [place] [address] * (ABNORMAL) CBC (04/24/2025 4:07 AM EDT) Pathologist [facility] [place] Auto WBC 5.70 4.00 - 10.60 10*3/uL 04/24/2025 4:37 AM EDT [facility] ([facility]) RBC 3.52(L) 4.20 - 5.70 10*6/uL 04/24/2025 4:37 AM EDT [facility] ([facility]) Hemoglobin 11.2(L) 13.0 - 17.0 g/dL 04/24/2025 4:37 AM EDT [facility] ([facility]) Hematocrit 33.1(L) 39.0 - 50.0 % 04/24/2025 4:37 AM EDT [facility] ([facility]) MCV 94.0 82.0 - 98.0 fL 04/24/2025 4:37 AM EDT [facility] ([facility]) MCH 31.8 27.0 - 33.0 pg 04/24/2025 4:37 AM EDT [facility] ([facility]) MCHC 33.8 32.0 - 35.0 g/dL 04/24/2025 4:37 AM EDT [facility] ([facility]) RDW 13.9 11.5 - 15.0 % 04/24/2025 4:37 AM EDT [facility] ([facility]) Platelets 209 150 - 400 10*3/uL 04/24/2025 4:37 AM EDT [facility] ([facility]) Blood Venous blood specimen / Unknown Venipuncture / Unknown 04/24/2025 4:07 AM EDT 04/24/2025 4:20 AM EDT us Benedict Pascual MD LAB BLOOD ORDERABLES Final Resul t [facility] ([facility]) [address] [place] [address] * (ABNORMAL) Basic metabolic panel (04/24/2025 4:07 AM EDT) Sodium 131(L) 136 - 145 mmol/L 04/24/2025 5:29 AM EDT [facility] ([facility]) Potassium 3.9 3.5 - 5.1 mmol/L 04/24/2025 5:29 AM EDT [facility] ([facility]) Chloride 100 98 - 107 mmol/L 04/24/2025 5:29 AM EDT [facility] ([facility]) CO2 19(L) 21 - 31 mmol/L 04/24/2025 5:29 AM EDT [facility] ([facility]) BUN 24 7 - 25 mg/dL 04/24/2025 5:29 AM EDT [facility] ([facility]) Creatinine 1.45(H) 0.70 - 1.30 mg/dL 04/24/2025 5:29 AM EDT [facility] ([facility]) Glucose 122(H) 70 - 100 mg/dL 04/24/2025 5:29 AM EDT [facility] ([facility]) Calcium 8.0(L) 8.6 - 10.3 mg/dL 04/24/2025 5:29 AM EDT [facility] ([facility]) Anion Gap 16 7 - 20 mmol/L 04/24/2025 5:29 AM EDT [facility] eGFR 52.2(L) >60.0 mL/min/1. 73m*2 04/24/2025 5:29 AM EDT [facility] ([facility]) Comment:The [facility] s estimated glomerular filtration rate (eGFR) will [...] any one group of individuals. BUN/Creatinine Ratio 16.6 01/2025 5:29 AM EDT [facility] ([facility]) Blood Venous blood specimen / Unknown Venipuncture / Unknown 04/24/2025 4:07 AM EDT 04/24/2025 4:17 AM EDT us Benedict Pascual MD LAB BLOOD ORDERABLES Final Resul t [facility] ([facility]) [address] [place] [address] * CTA Chest W IV Contrast (04/23/2025 4:47 PM EDT) Anatomical Region Laterality Modality Body, Chest Computed Tomogra phy 04/23/2025 5:24 PM EDT Impressions 04/23/2025 5:57 PM EDT * No central pulmonary embolus. * Small bilateral pleural effusions. * Enlarged main pulmonary artery suggestive of pulmonary arterial hypertension. Reflux of contrast into the suprahepatic IVC suggestive of right heart dysfunction. Approved by:Benedict Katz04/23/2025 5:40 PM. I, Howie Velasquez,have reviewed the image(s) and agree with the findings in this report. Electronically signed: Howie Velasquez. Narrative 04/23/2025 5:57 PM EDT CTA CHEST W IV CONTRAST INDICATION: Shortness of breath COMPARISON: CTA chest 03/26/2025 TECHNIQUE: Contiguous axial images are obtained of the Chest with IV contrast. Coronal and sagittal reconstructions were performed and reviewed. Sagittal and coronal reformatted images with 3-D Maximum intensity projection reconstructions constructed under concurrent physician supervision on a separate workstation. Automatic exposure control was utilized. All CT scans at this facility use dose modulation, iterative reconstruction, and/or weight based dosing when appropriate to reduce radiation dose to as low as reasonably achievable. FINDINGS: Lines/Tubes: * Right-sided cardiac pacemaker with leads terminating near the right atrium and right ventricle. * Atrial appendage closure device in place. Lower Neck: No thyromegaly. Cardiovascular: Mildly ectatic ascending thoracic aorta measuring 4.0 cm. Mild global cardiomegaly. No pericardial effusion. Heavy coronary artery calcifications. Reflux of contrast into the suprahepatic IVC. Pulmonary Arteries: Enlarged main pulmonary artery measuring 4.2 cm. No filling defects of the main pulmonary arteries, segmental branches, or major subsegmental branches to suggest emboli. Mediastinum: No mediastinal mass. Lymph Nodes: No thoracic lymphadenopathy. Chest Wall: Bilateral gynecomastia. Respiratory: Widely patent central airway. No pneumothorax. Small bilateral pleural effusions. No focal consolidation. No suspicious pulmonary nodules. Skeletal: No worrisome osseous lesion. Upper Abdomen: Simple right renal cyst, no further dedicated follow-up necessary. Procedure Note Howie Velasquez MD - 04/23/2025 CTA CHEST W IV CONTRAST INDICATION: Shortness of breath COMPARISON: CTA chest 03/26/2025 TECHNIQUE: Contiguous axial images are obtained of the Chest with IVcontrast. Coronal and sagittal reconstructions were performed and reviewed. [place] coronal reformatted images with 3-D Maximum intensity projectionreconstructions constructed under concurrent physician supervision on a separateworkstation. Automatic exposure control was utilized. All CT scans at this facility usedose modulation, iterative reconstruction, and/or weight based dosing when appropriate to reduce radiation dose to as low as reasonably achievable. FINDINGS: Lines/Tubes: *Right-sided cardiac pacemaker with leads terminating near the rightatrium and right ventricle. *Atrial appendage closure device in place. Lower Neck: No thyromegaly. Cardiovascular: Mildly ectatic ascending thoracic aorta measuring 4.0 cm.Mild global cardiomegaly. No pericardial effusion. Heavy coronary artery calcifications. Reflux of contrast into the suprahepatic IVC. Pulmonary Arteries: Enlarged main pulmonary artery measuring 4.2 cm. Nofilling defects of the main pulmonary arteries, segmental branches, or major subsegmental branches to suggest emboli. Mediastinum: No mediastinal mass. Lymph Nodes: No thoracic lymphadenopathy. Chest Wall: Bilateral gynecomastia. Respiratory: Widely patent central airway. No pneumothorax. Smallbilateral pleural effusions. No focal consolidation. No suspicious pulmonarynodules. Skeletal: No worrisome osseous lesion. Upper Abdomen: Simple right renal cyst, no further dedicated follow-up necessary. IMPRESSION: *No central pulmonary embolus. *Small bilateral pleural effusions. *Enlarged main pulmonary artery suggestive of pulmonary arterial hypertension. Reflux of contrast into the suprahepatic IVC suggestive ofright heart dysfunction. Approved by:Benedict Katz04/23/2025 5:40 PM. I, Howie Velasquez,have reviewed the image(s) and agree with the findings inthis report. Electronically signed: Howie Velasquez. us Benedict Pascual MD IMG CT PROCEDURES Final Result * LIMITED ECHOCARDIOGRAM (TTE) W/ LTD DOPPLER AND COLOR FLOW (04/23/2025 7:56 AM EDT) Anatomical Region Laterality Modality Other 04/23/2025 7:26 AM EDT Narrative 04/23/2025 9:27 AM EDT 1 1 [facility] Heart Station [address] [place] [address] (fax) Echocardiogram-[facility] Name: KRISTY DOHERTY Study Date: 04/23/2025 07:26 AM B/P: 90 mmHg/74 mmHg HR: 111 bpm Date of : 1955 Location: [facility] Height: 68 in. Age: 69 year(s) Patient Room: 3183 Weight: 177 lb. Gender: Male Patient Status: InPt BSA: 1.94 m2 Indication: Limited; pericardial effusion, S/P 35 mm Watchman device FLX, S/P Pericardiocentesis, H/O 25-30%, Pacemaker/AICD Examination: Limited Echo/Limited Doppler, Color flow imaging Image Quality: Good Patient Consent: Procedure explained to patient Conclusions Left Ventricle: Global left ventricular systolic function is severely reduced. The EF is 20 % visually. Regional wall motion abnormalities (see diagram). Right Ventricle: Severely reduced right ventricular systolic function. A pacemaker wire is seen in the right ventricle. Doppler studies suggest moderately elevated right sided pressures (elevated pulmonary pressure). Mitral Valve: Mild to moderate mitral regurgitation. Aortic Valve: Mild aortic valve regurgitation. Tricuspid Valve: Moderate tricuspid regurgitation. Overall Conclusions: Decrease in right ventricular systolic function and increase in tricuspid insufficiency when compared to previous study. Measurements Left Ventricle Label Value Normal Value LVEF visual 20 % Tricuspid Valve Label Value Normal Value RA Pressure 8 mmHg RVSP 49 mmHg TR Vmax 3.22 m/s Great Vessels Label Value Normal Value IVC 2 cm (1.2cm - 2.3cm) Valvular Assessment LVOT 0.7 - 1.1 m/sec Aortic Valve 1.0 - 1.7 m/sec Mitral Valve 0.6 - 1.3 m/sec Tricuspid Valve 0.3 - 0.7 m/sec Pulmonic Valve 0.6 - 0.9 m/sec Regurgitation Mild MildMod Moderate Findings Left Ventricle: Global left ventricular systolic function is severely reduced. The EF is 20 % visually. Regional wall motion abnormalities (see diagram). The basal anterior, basal anteroseptal, basal inferoseptal, basal inferior, basal inferolateral, basal anterolateral, mid inferoseptal, mid inferior and mid inferolateral left ventricular wall segments are hypokinetic. The mid anterior, mid anteroseptal, mid anterolateral, apical anterior, apical septal, apical inferior, apical lateral and apex left ventricular wall segments are akinetic. Right Ventricle: The right ventricular free wall is akinetic in the distal two-thirds. Severely reduced right ventricular systolic function. A pacemaker wire is seen in the right ventricle. Doppler studies suggest moderately elevated right sided pressures (elevated pulmonary pressure). Mitral Valve: The mitral valve is normal in mobility and thickness. Mild to moderate mitral regurgitation. Aortic Valve: The aortic valve opens well. Mildly sclerosed aortic valve cusps. Mild aortic valve regurgitation. Tricuspid Valve: Normal tricuspid valve. Moderate tricuspid regurgitation. Pulmonic Valve: Pulmonary valve not visualized. Great Vessels: IVC: The IVC is normal in size. There is no inspiratory collapse of the IVC. Pericardium: There is a minimal pericardial effusion. Procedure Staff Reading Group: [facility] Referring Physician: RUDY KING Property Consultant: June Brumfield RDCS, RVT, RN, BSN Ordering Physician: FANI DENNEY Wall Motion Scores -1 - hyperkinesia, 0 - not evaluated, 1 - normal, 2 - hypokinesia, 3 - akinesia, 4 - dyskinesia Procedure Note Mitesh Vernon MD - 04/23/2025 1 1 [place] [facility] Heart Station [address] [place] [address] [phone] (fax) Echocardiogram-[facility] Name: KRISTY DOHERTY Study Date: 04/23/2025 07:26 AM B/P: 90 mmHg/74 mmHg HR: 111 bpm Date of : 1955 Location: [facility] Height: 68 in. Age: 69 year(s) Patient Room: [facility] Weight: 177 lb. Gender: Male Patient Status: InPt BSA: 1.94 m2 Indication: Limited; pericardial effusion, S/P 35 mm Watchman device FLX, S/P Pericardiocentesis, H/O 25-30%, Pacemaker/AICD Examination: Limited Echo/Limited Doppler, Color flow imaging Image Quality: Good Patient Consent: Procedure explained to patient Conclusions Left Ventricle: Global left ventricular systolic function is severely reduced. The EF is 20 % visually. Regional wall motion abnormalities (see diagram). Right Ventricle: Severely reduced right ventricular systolic function. A pacemaker wire is seen in the right ventricle. Doppler studies suggest moderately elevated right sided pressures (elevated pulmonary pressure). Mitral Valve: Mild to moderate mitral regurgitation. Aortic Valve: Mild aortic valve regurgitation. Tricuspid Valve: Moderate tricuspid regurgitation. Overall Conclusions: Decrease in right ventricular systolic function and increase in tricuspid insufficiency when compared to previous study. Measurements Left Ventricle Label Value Normal Value LVEF visual 20 % Tricuspid Valve Label Value Normal Value RA Pressure 8 mmHg RVSP 49 mmHg TR Vmax 3.22 m/s Great Vessels Label Value Normal Value IVC 2 cm (1.2cm - 2.3cm) Valvular Assessment LVOT 0.7 - 1.1 m/sec Aortic Valve 1.0 - 1.7 m/sec Mitral Valve 0.6 - 1.3 m/sec Tricuspid Valve 0.3 - 0.7 m/sec Pulmonic Valve 0.6 - 0.9 m/sec Regurgitation Mild MildMod Moderate Findings Left Ventricle: Global left ventricular systolic function is severely reduced. The EF is 20 % visually. Regional wall motion abnormalities (see diagram). The basal anterior, basal anteroseptal, basal inferoseptal, basal inferior, basal inferolateral, basal anterolateral, mid inferoseptal, mid inferior and mid inferolateral left ventricular wall segments are hypokinetic. The mid anterior, mid anteroseptal, mid anterolateral, apical anterior, apical septal, apical inferior, apical lateral and apex left ventricular wall segments are akinetic. Right Ventricle: The right ventricular free wall is akinetic in the distal two-thirds. Severely reduced right ventricular systolic function. A pacemaker wire is seen in the right ventricle. Doppler studies suggest moderately elevated right sided pressures (elevated pulmonary pressure). Mitral Valve: The mitral valve is normal in mobility and thickness. Mild to moderate mitral regurgitation. Aortic Valve: The aortic valve opens well. Mildly sclerosed aortic valve cusps. Mild aortic valve regurgitation. Tricuspid Valve: Normal tricuspid valve. Moderate tricuspid regurgitation. Pulmonic Valve: Pulmonary valve not visualized. Great Vessels: IVC: The IVC is normal in size. There is no inspiratory collapse of the IVC. Pericardium: There is a minimal pericardial effusion. Procedure Staff Reading Group: [facility] Referring Physician: RUDY KING Property Consultant: June Brumfield RDCS, RVT, RN, BSN Ordering Physician: FANI DENNEY Wall Motion Scores -1 - hyperkinesia, 0 - not evaluated, 1 - normal, 2 - hypokinesia, 3 - akinesia, 4 - dyskinesia Fani Denney MD CV ECHO PROCEDURES Final Result * (ABNORMAL) Magnesium (04/23/2025 5:02 AM EDT) Magnesium 1.6(L) 1.9 - 2.7 mg/dL 04/23/2025 5:58 AM EDT [facility] ([facility]) Blood Venous blood specimen / Unknown Venipuncture / Unknown 04/23/2025 5:02 AM EDT 04/23/2025 5:22 AM EDT Osito Kline MD LAB BLOOD ORDERABLES Final Resul t [facility] ([facility]) [address] [place] [address] * (ABNORMAL) CBC auto differential (04/23/2025 5:02 AM EDT) Auto WBC 5.60 4.00 - 10.60 10*3/uL 04/23/2025 5:32 AM EDT [facility] ([facility]) RBC 3.73(L) 4.20 - 5.70 10*6/uL 04/23/2025 5:32 AM EDT [facility] ([facility]) Hemoglobin 11.9(L) 13.0 - 17.0 g/dL 04/23/2025 5:32 AM EDT [facility] ([facility]) Hematocrit 35.0(L) 39.0 - 50.0 % 04/23/2025 5:32 AM EDT [facility] ([facility]) MCV 93.8 82.0 - 98.0 fL 04/23/2025 5:32 AM EDT [facility] ([facility]) MCH 31.9 27.0 - 33.0 pg 04/23/2025 5:32 AM EDT [facility] ([facility]) MCHC 34.0 32.0 - 35.0 g/dL 04/23/2025 5:32 AM T [facility] ([facility]) RDW 13.9 11.5 - 15.0 % 04/23/2025 5:32 AM T [facility] ([facility]) Neutrophils % 57.1 40.0 - 72.0 % 04/23/2025 5:32 AM T [facility] ([facility]) Lymphocytes % 22.5 20.0 - 45.0 % 04/23/2025 5:32 AM EDT [facility] ([facility]) Monocytes % 17.7(H) 5.0 - 12.0 % 04/23/2025 5:32 AM EDT [facility] ([facility]) Eosinophils % 1.8 0.0 - 6.0 % 04/23/2025 5:32 AM EDT [facility] ([facility]) Basophils % 0.5 0.0 - 1.0 % 04/23/2025 5:32 AM EDT [facility] ([facility]) Neutrophils Absolute 3.20 1.60 - 7.60 10*3/uL 04/23/2025 5:32 AM EDT [facility] ([facility]) Lymphocytes Absolute 1.26 1.20 - 4.00 10*3/uL 04/23/2025 5:32 AM EDT [facility] ([facility]) Monocytes Absolute 0.99 0.10 - 1.00 10*3/uL 04/23/2025 5:32 AM EDT [facility] ([facility]) Eosinophils Absolute 0.10 0.00 - 0.50 10*3/uL 04/23/2025 5:32 AM EDT [facility] ([facility]) Basophils Absolute 0.03 0.00 - 0.20 10*3/uL 04/23/2025 5:32 AM EDT [facility] ([facility]) Platelets 223 150 - 400 10*3/uL 04/23/2025 5:32 AM EDT [facility] ([facility]) nRBC % 0.0 0 % 04/23/2025 5:32 AM EDT [facility] ([facility]) Immature Granulocytes % 0.4 0.0 - 1.0 % 04/23/2025 5:32 AM EDT [facility] ([facility]) Immature Granulocytes Absolute 0.02 0.00 - 0.20 10*3/uL 04/23/2025 5:32 AM EDT [facility] ([facility]) Blood Venous blood specimen / Unknown Venipuncture / Unknown 04/23/2025 5:02 AM EDT 04/23/2025 5:22 AM EDT us Yanely Archer [facility] BLOOD ORDERABLES Final R esult [facility] ([facility]) [address] [place] [address] * (ABNORMAL) Comprehensive metabolic panel (04/23/2025 5:02 AM EDT) Sodium 134(L) 136 - 145 mmol/L 04/23/2025 5:58 AM EDT [facility] ([facility]) Potassium 4.1 3.5 - 5.1 mmol/L 04/23/2025 5:58 AM EDT [facility] ([facility]) Chloride 99 98 - 107 mmol/L 04/23/2025 5:58 AM EDT [facility] ([facility]) CO2 26 21 - 31 mmol/L 04/23/2025 5:58 AM EDT [facility] ([facility]) Anion Gap 13 7 - 20 mmol/L 04/23/2025 5:58 AM EDT [facility] ([facility]) BUN 18 7 - 25 mg/dL 04/23/2025 5:58 AM EDT [facility] ([facility]) Creatinine 1.11 0.70 - 1.30 mg/dL 04/23/2025 5:58 AM EDT [facility] ([facility]) BUN/Creatinine Ratio 16.2 12/2024 5:58 AM EDT [facility] ([facility]) Glucose 125(H) 70 - 100 mg/dL 04/23/2025 5:58 AM T [facility] ([facility]) Calcium 8.4(L) 8.6 - 10.3 mg/dL 04/23/2025 5:58 AM T [facility] ([facility]) AST 34 13 - 39 U/L 04/23/2025 5:58 AM T [facility] ([facility]) ALT (SGPT) 18 7 - 52 U/L 04/23/2025 5:58 AM T [facility] ([facility]) Alkaline Phosphatase 48 34 - 104 U/L 04/23/2025 5:58 AM [facility] ([facility]) Total Protein 6.8 6.0 - 8.3 g/dL 04/23/2025 5:58 AM T [facility] ([facility]) Albumin 3.7 3.5 - 5.7 g/dL 04/23/2025 5:58 AM T [facility] ([facility]) Total Bilirubin 0.5 0.3 - 1.0 mg/dL 04/23/2025 5:58 AM [facility] ([facility]) eGFR 71.9 >60.0 mL/min/1. 73m*2 04/23/2025 5:58 AM T [facility] ([facility]) Comment:The [facility] s estimated glomerular filtration rate (eGFR) will [...] disproportionately affect any one group of individuals. Blood Venous blood specimen / Unknown Venipuncture / Unknown 04/23/2025 5:02 AM EDT 04/23/2025 5:22 AM EDT Yanely ThriveOn [facility] BLOOD ORDERABLES Final R esult Performing Organization Address City/[facility]/ZIP Co de Phone Number [facility] ([facility]) [address] [place] [address] * (ABNORMAL) C-reactive protein (04/23/2025 5:02 AM EDT) CRP 39.4(H) <=5.0 mg/L 04/23/2025 8:57 AM EDT [facility] ([facility]) Comment:Testing performed us ing a new methodology, turbidimetry. Normal ranges have been updated. Old normal range was <8 mg/L. Blood Venous blood specimen / Unknown Venipuncture / Unknown 04/23/2025 5:02 AM EDT 04/23/2025 5:22 AM EDT Yanely Smith [facility] BLOOD ORDERABLES Final R esult Performing Organization Address City/[facility]/ZIP Co de Phone Number [facility] ([facility]) [address] [place] [address] * CT cervical spine wo IV contrast (04/23/2025 3:59 AM EDT) Anatomical Region Laterality Modality Spine, C-spine Computed Tomogra phy 04/23/2025 4:07 AM EDT Impressions 04/23/2025 4:21 AM EDT No evidence of acute fracture or traumatic malalignment. Approved by:Phill Orellana 4:14 AM. Ayden Ramirez MD,have reviewed the image(s) and agree with the findings in this report. Electronically signed: Ayden Corbin MD. Narrative 04/23/2025 4:[address] CERVICAL SPINE WO IV CONTRAST HISTORY: Fall, neck pain COMPARISON: None. TECHNIQUE: Multi detector CT slices of the cervical spine were obtained without IV contrast. All CT scans at this facility use dose modulation, iterative reconstruction, and/or weight based dosing when appropriate to reduce radiation dose to as low as reasonably achievable. FINDINGS: The cervical alignment is maintained without spondylolisthesis. The vertebral body heights are preserved. Multilevel degenerative disc disease with disc space narrowing most prominently at C6-C7. Multilevel facet degenerative changes which contribute to at least moderate bony neural foraminal stenosis at C3-C4 on the right. No acute fracture is identified. The craniocervical junction and atlantoaxial joint are intact. No destructive osseous lesion. The prevertebral soft tissues are within normal limits. The paraspinous soft tissues are within normal limits. Strandy left apical airspace opacity. Procedure Note Ayden Corbin MD - 04/23/2025 CT CERVICAL SPINE WO IV CONTRAST HISTORY: Fall, neck pain COMPARISON: None. TECHNIQUE: Multi detector CT slices of the cervical spine were obtainedwithout IV contrast. All CT scans at this facility use dose modulation,iterative reconstruction, and/or weight based dosing when appropriate to reduceradiation dose to as low as reasonably achievable. FINDINGS: The cervical alignment is maintained without spondylolisthesis. Thevertebral body heights are preserved. Multilevel degenerative disc disease withdisc space narrowing most prominently at C6-C7. Multilevel facetdegenerative changes which contribute to at least moderate bony neural foraminalstenosis at C3-C4 on the right. No acute fracture is identified. The craniocervical junction andatlantoaxial joint are intact. No destructive osseous lesion. The prevertebral soft tissues are within normal limits. The paraspinoussoft tissues are within normal limits. Strandy left apical airspace opacity. IMPRESSION: No evidence of acute fracture or traumatic malalignment. Approved by:Phill Orellana 4:14 AM. Ayden Ramirez MD,have reviewed the image(s) and agree with the findingsin this report. Electronically signed: Ayden Corbin MD. us Sunil Adam KLEIN IMG CT PROCEDURES Final Resu lt * CT head wo IV contrast (04/23/2025 3:59 AM EDT) Anatomical Region Laterality Modality Head, Neck Computed Tomogra phy 04/23/2025 4:00 AM EDT Impressions 04/23/2025 4:21 AM EDT * No acute intracranial abnormality, by CT. * Chronic and senescent changes as described. Approved by:Phill Orellana 4:07 AM. Ayden Ramirez MD,have reviewed the image(s) and agree with the findings in this report. Electronically signed: Ayden Corbin MD. Narrative 04/23/2025 4:[address] HEAD WO IV CONTRAST HISTORY: Fall, head trauma, nausea. COMPARISON: None. TECHNIQUE: CT brain without intravenous contrast. Automated exposure control was utilized. All CT scans at this facility use dose modulation, iterative reconstruction, and/or weight based dosing when appropriate to reduce radiation dose to as low as reasonably achievable. FINDINGS: No acute, territorial region of diminished acosta-white differentiation. No evidence of acute intracranial hemorrhage. No mass effect, shift of midline structures, or extra-axial fluid collection. Mild global parenchymal volume loss. Mild heterogeneity of the deep, periventricular white matter most commonly seen in the setting of chronic microvascular ischemic changes. Disconjugate gaze. Polypoid mucosal thickening within the left maxillary sinus. Bilateral maxillary antrostomies. No displaced calvarial fracture. Degenerative changes of the left temporomandibular joint joint. Procedure Note Ayden Corbin MD - 04/23/2025 CT HEAD WO IV CONTRAST HISTORY: Fall, head trauma, nausea. COMPARISON: None. TECHNIQUE: CT brain without intravenous contrast. Automated exposurecontrol was utilized. All CT scans at this facility use dose modulation,iterative reconstruction, and/or weight based dosing when appropriate to reduceradiation dose to as low as reasonably achievable. FINDINGS: No acute, territorial region of diminished acosta-white differentiation.No evidence of acute intracranial hemorrhage. No mass effect, shift ofmidline structures, or extra-axial fluid collection. Mild global parenchymal volume loss. Mild heterogeneity of the deep, periventricular white matter most commonly seen in the setting ofchronic microvascular ischemic changes. Disconjugate gaze. Polypoid mucosal thickening within the left maxillarysinus. Bilateral maxillary antrostomies. No displaced calvarial fracture.Degenerative changes of the left temporomandibular joint joint. IMPRESSION: *No acute intracranial abnormality, by CT. *Chronic and senescent changes as described. Approved by:Phill Orellana 4:07 AM. I, Ayden Corbin MD,have reviewed the image(s) and agree with the findingsin this report. Electronically signed: Ayden Corbin MD. us Sunil Adam KLEIN IMG CT PROCEDURES Final Resu lt * ECG 12 lead (04/23/2025 3:34 AM EDT) Ventricular Rate 120 BPM GE MUSE Atrial Rate 120 BPM GE MUSE ME Interval 198 ms GE MUSE QRS DURATION 102 ms GE MUSE QT Interval 294 ms GE MUSE QTC CALCULATION(BAZE TT) 415 ms GE MUSE P Welch 64 degrees GE MUSE R-Welch 38 degrees GE MUSE T Wave Welch 116 degrees GE MUSE 04/23/2025 3:16 AM EDT 04/23/2025 8:14 AM EDT Impressions GE MUSE - 04/23/2025 8:14 AM EDT Sinus tachycardia Low voltage QRS Septal infarct , age undetermined Abnormal ECG When compared with ECG of 19-APR-2025 18:24, Premature ventricular complexes are no longer Present Confirmed by Jeffy VERNON SAMER J. ([id number]) on 04/23/2025 8:14:48 AM Narrative Procedure Note Mitesh Vernon MD - 04/23/2025 IMPRESSION: Sinus tachycardia Low voltage QRS Septal infarct , age undetermined Abnormal ECG When compared with ECG of 19-APR-2025 18:24, Premature ventricular complexes are no longer Present Confirmed by Jeffy VERNON SAMER J. ([id number]) on 04/23/2025 8:14:48 AM us Osito Kline MD ECG ORDERABLES Final Result [employer] MUSE * LIMITED ECHOCARDIOGRAM (TTE) W/ LTD DOPPLER AND COLOR FLOW (04/20/2025 1:51 PM EDT) Anatomical Region Laterality Modality Other 04/20/2025 1:28 PM EDT Narrative 04/20/2025 5:38 PM EDT 1 1 [place] [facility] Heart Station [address] [place] [address] [phone] (fax) Echocardiogram-[facility] Name: KRISTY DOHERTY Study Date: 04/20/2025 01:28 PM B/P: 83 mmHg/58 mmHg HR: 96 bpm Date of : 1955 Location: [facility] Height: 68 in. Age: 69 year(s) Patient Room: [facility]3 Weight: 179 lb. Gender: Male Patient Status: InPt BSA: 1.95 m2 Indication: Limited; evaluate pericardial effusion, S/P 35 mm Watchman FLX, H/O EF 25 - 30 %, Pacemaker, Cardiomyopathy Examination: Limited Echo/Limited Doppler, Color flow imaging Image Quality: Good Patient Consent: Procedure explained to patient Conclusions Left Ventricle: Global left ventricular systolic function is severely reduced. The EF is 30 % visually. The septum is abnormal in its motion. Right Ventricle: Right ventricular systolic function appears normal. A pacemaker wire is seen in the right ventricle. Doppler studies suggest normal right sided pressures. Pericardium: No pericardial effusion. Measurements Left Ventricle Label Value Normal Value LVEF visual 30 % Tricuspid Valve Label Value Normal Value RA Pressure 3 mmHg RVSP 24 mmHg TR Vmax 2.29 m/s Great Vessels Label Value Normal Value IVC 1.1 cm (1.2cm - 2.3cm) Valvular Assessment LVOT 0.7 - 1.1 m/sec Aortic Valve 1.0 - 1.7 m/sec Mitral Valve 0.6 - 1.3 m/sec Tricuspid Valve 0.3 - 0.7 m/sec Pulmonic Valve 0.6 - 0.9 m/sec Regurgitation Trivial Trivial Trivial Findings Left Ventricle: Global left ventricular systolic function is severely reduced. The EF is 30 % visually. The septum is abnormal in its motion. All scored left ventricular wall segments are hypokinetic. Right Ventricle: Right ventricular systolic function appears normal. A pacemaker wire is seen in the right ventricle. Doppler studies suggest normal right sided pressures. Mitral Valve: The mitral valve is normal in mobility and thickness. Trivial mitral regurgitation. Aortic Valve: Mildly sclerosed aortic valve cusps. Trivial aortic valve regurgitation. Tricuspid Valve: Normal tricuspid valve. Trivial tricuspid regurgitation. Great Vessels: IVC: The IVC is normal in size. There is inspiratory collapse of the IVC. Pericardium: No pericardial effusion. Procedure Staff Reading Group: [facility] Referring Physician: RUDY KING Property Consultant: June Brumfield RDCS, RVT, RN, BSN Ordering Physician: VENU SAMANIEGO Wall Motion Scores -1 - hyperkinesia, 0 - not evaluated, 1 - normal, 2 - hypokinesia, 3 - akinesia, 4 - dyskinesia Procedure Note Mitesh Vernon MD - 04/20/2025 1 1 [place] [facility] Heart Station [address] [id number] [phone] (fax) Echocardiogram-[facility] Name: KRISTY DOHERTY Study Date: 04/20/2025 01:28 PM B/P: 83 mmHg/58 mmHg HR: 96 bpm Date of : 1955 Location: [facility] Height: 68 in. Age: 69 year(s) Patient Room: 3183 Weight: 179 lb. Gender: Male Patient Status: InPt BSA: 1.95 m2 Indication: Limited; evaluate pericardial effusion, S/P 35 mm Watchman FLX, H/O EF 25 - 30 %, Pacemaker, Cardiomyopathy Examination: Limited Echo/Limited Doppler, Color flow imaging Image Quality: Good Patient Consent: Procedure explained to patient Conclusions Left Ventricle: Global left ventricular systolic function is severely reduced. The EF is 30 % visually. The septum is abnormal in its motion. Right Ventricle: Right ventricular systolic function appears normal. A pacemaker wire is seen in the right ventricle. Doppler studies suggest normal right sided pressures. Pericardium: No pericardial effusion. Measurements Left Ventricle Label Value Normal Value LVEF visual 30 % Tricuspid Valve Label Value Normal Value RA Pressure 3 mmHg RVSP 24 mmHg TR Vmax 2.29 m/s Great Vessels Label Value Normal Value IVC 1.1 cm (1.2cm - 2.3cm) Valvular Assessment LVOT 0.7 - 1.1 m/sec Aortic Valve 1.0 - 1.7 m/sec Mitral Valve 0.6 - 1.3 m/sec Tricuspid Valve 0.3 - 0.7 m/sec Pulmonic Valve 0.6 - 0.9 m/sec Regurgitation Trivial Trivial Trivial Findings Left Ventricle: Global left ventricular systolic function is severely reduced. The EF is 30 % visually. The septum is abnormal in its motion. All scored left ventricular wall segments are hypokinetic. Right Ventricle: Right ventricular systolic function appears normal. A pacemaker wire is seen in the right ventricle. Doppler studies suggest normal right sided pressures. Mitral Valve: The mitral valve is normal in mobility and thickness. Trivial mitral regurgitation. Aortic Valve: Mildly sclerosed aortic valve cusps. Trivial aortic valve regurgitation. Tricuspid Valve: Normal tricuspid valve. Trivial tricuspid regurgitation. Great Vessels: IVC: The IVC is normal in size. There is inspiratory collapse of the IVC. Pericardium: No pericardial effusion. Procedure Staff Reading Group: [facility] Referring Physician: RUDY KING Property Consultant: June Brumfield RDCS, RVT, RN, BSN Ordering Physician: VENU SAMANIEGO Wall Motion Scores -1 - hyperkinesia, 0 - not evaluated, 1 - normal, 2 - hypokinesia, 3 - akinesia, 4 - dyskinesia us Venu Samaniego MD CV ECHO PROCEDURES Final R esult * Osmolality (04/20/2025 12:25 PM EDT) Osmolality 276 275 - 295 mOsm/kg 04/20/2025 7:48 PM EDT [facility] Comment:[facility] [address] [place] [id number] - Released 04/20/2025 19:48 Blood Venous blood specimen / Unknown Venipuncture / Unknown 04/20/2025 12:25 PM EDT 04/20/2025 12:56 PM EDT us Benedict Pascual MD LAB BLOOD ORDERABLES Final Resul t [facility] [address] [place] [address] * Blood culture, peripheral #2 (04/20/2025 10:09 AM EDT) Blood Culture No growth at 5 days FLORA 04/25/2025 12:01 PM EDT [facility] ([facility]) Blood Venous blood specimen / Unknown Venipuncture / Unknown 04/20/2025 10:09 AM EDT 04/20/2025 12:00 PM EDT us Benedict Pascual MD LAB MICROBIOLOGY - GENERAL ORDER JAY Final Result Performing Organization Address City/[facility]/ZIP Co de Phone Number [facility] ([facility]) [address] [place] [address] * Blood culture, peripheral #1 (04/20/2025 10:09 AM EDT) Blood Culture No growth at 5 days FLORA 04/25/2025 12:01 PM EDT [facility] ([facility]) Blood Venous blood specimen / Unknown Venipuncture / Unknown 04/20/2025 10:09 AM EDT 04/20/2025 12:00 PM EDT us Benedict Pascual MD LAB MICROBIOLOGY - GENERAL ORDER JAY Final Result [facility] ([facility]) [address] [place] [address] * Cortisol (04/20/2025 5:15 AM EDT) Cortisol 11.2 6 - 23 ug/dL 04/20/2025 12:47 PM EDT [facility] ([facility]) Blood Venous blood specimen / Unknown Venipuncture / Unknown 04/20/2025 5:15 AM EDT 04/20/2025 5:22 AM EDT us Benedict Pascual MD LAB BLOOD ORDERABLES Final Resul t [facility] ([facility]) [address] [place] [address] * (ABNORMAL) CBC (04/20/2025 5:15 AM EDT) Auto WBC 7.50 4.00 - 10.60 10*3/uL 04/20/2025 5:32 AM EDT [facility] ([facility]) RBC 3.75(L) 4.20 - 5.70 10*6/uL 04/20/2025 5:32 AM EDT [facility] ([facility]) Hemoglobin 12.1(L) 13.0 - 17.0 g/dL 04/20/2025 5:32 AM EDT [facility] ([facility]) Hematocrit 34.0(L) 39.0 - 50.0 % 04/20/2025 5:32 AM EDT [facility] ([facility]) MCV 90.7 82.0 - 98.0 fL 04/20/2025 5:32 AM EDT [facility] ([facility]) MCH 32.3 27.0 - 33.0 pg 04/20/2025 5:32 AM EDT [facility] ([facility]) MCHC 35.6(H) 32.0 - 35.0 g/dL 04/20/2025 5:32 AM EDT [facility] ([facility]) RDW 13.9 11.5 - 15.0 % 04/20/2025 5:32 AM EDT [facility] ([facility]) Platelets 160 150 - 400 10*3/uL 04/20/2025 5:32 AM EDT [facility] ([facility]) Blood Venous blood specimen / Unknown Venipuncture / Unknown 04/20/2025 5:15 AM EDT 04/20/2025 5:22 AM EDT us Venu Samaniego MD LAB BLOOD ORDERABLES Final Result [facility] ([facility]) [address] [place] [address] * (ABNORMAL) Basic metabolic panel (04/20/2025 5:15 AM EDT) Sodium 127(L) 136 - 145 mmol/L 04/20/2025 6:42 AM EDT [facility] ([facility]) Potassium 3.9 3.5 - 5.1 mmol/L 04/20/2025 6:42 AM EDT [facility] ([facility]) Chloride 93(L) 98 - 107 mmol/L 04/20/2025 6:42 AM EDT [facility] ([facility]) CO2 26 21 - 31 mmol/L 04/20/2025 6:42 AM EDT [facility] ([facility]) BUN 16 7 - 25 mg/dL 04/20/2025 6:42 AM EDT [facility] ([facility]) Creatinine 0.94 0.70 - 1.30 mg/dL 04/20/2025 6:42 AM EDT [facility] ([facility]) Glucose 127(H) 70 - 100 mg/dL 04/20/2025 6:42 AM EDT [facility] ([facility]) Calcium 8.8 8.6 - 10.3 mg/dL 04/20/2025 6:42 AM EDT [facility] ([facility]) Anion Gap 12 7 - 20 mmol/L 04/20/2025 6:42 AM EDT [facility] ([facility]) eGFR 87.8 >60.0 mL/min/1. 73m*2 04/20/2025 6:42 AM EDT [facility] ([facility]) Comment:[facility] s estimated glomerular filtration rate (eGFR) will [...] any one group of individuals. BUN/Creatinine Ratio 17.0 09/2024 6:42 AM EDT [facility]) Blood Venous blood specimen / Unknown Venipuncture / Unknown 04/20/2025 5:15 AM EDT 04/20/2025 5:22 AM EDT Venu Samaniego MD LAB BLOOD ORDERABLES Final Result [facility]) [address] [place] [address] * Sodium, urine, random (04/19/2025 8:28 PM EDT) Sodium, Ur 59 mmol/L 04/19/2025 8:54 PM EDT [facility]) Urine Urine specimen obtained by clean catch procedure / Unknown Non-blood Collection / Unknown 04/19/2025 8:28 PM EDT 04/19/2025 8:39 PM EDT Venu Samaniego MD LAB URINE ORDERABLES Final Result Performing Organization Address City/[facility] Co de Phone Number [facility]) [address] [place] [address] * ECG 12 lead (04/19/2025 6:35 PM EDT) Ventricular Rate 112 BPM GE MUSE Atrial Rate 112 BPM GE MUSE ME Interval 186 ms GE MUSE QRS DURATION 114 ms GE MUSE QT Interval 342 ms GE MUSE QTC CALCULATION(BAZE TT) 466 ms GE MUSE P Welch 50 degrees GE MUSE R-Welch 19 degrees GE MUSE T Wave Welch 96 degrees GE MUSE 04/19/2025 6:24 PM EDT 04/20/2025 7:43 AM EDT Impressions GE MUSE - 04/20/2025 7:43 AM EDT Sinus tachycardia with occasional Premature ventricular complexes Low voltage QRS Incomplete left bundle branch block T wave abnormality, consider lateral ischemia Abnormal ECG When compared with ECG of 19-APR-2025 12:03, Premature ventricular complexes are now Present Minimal criteria for Anteroseptal infarct are no longer Present Confirmed by Bobo Raymond ([id number]) on 04/20/2025 7:43:00 AM Narrative Procedure Note Bobo Raymond MD - 04/20/2025 IMPRESSION: Sinus tachycardia with occasional Premature ventricular complexes Low voltage QRS Incomplete left bundle branch block T wave abnormality, consider lateral ischemia Abnormal ECG When compared with ECG of 19-APR-2025 12:03, Premature ventricular complexes are now Present Minimal criteria for Anteroseptal infarct are no longer Present Confirmed by Bobo Raymond ([id number]) on 04/20/2025 7:43:00 AM us Venu Samaniego MD ECG ORDERABLES Final Resu lt GE MUSE * (ABNORMAL) Osmolality (04/19/2025 6:26 PM EDT) Pathologist [facility] Osmolality 268(L) 275 - 295 mOsm/kg 04/20/2025 3:14 PM EDT [facility] Comment:Test Performed by [facility] [place], [place] [id number] - Released 04/20/2025 15:14 Blood Venous blood specimen / Unknown Venipuncture / Unknown 04/19/2025 6:26 PM EDT 04/19/2025 6:36 PM EDT Venu Samaniego MD LAB BLOOD ORDERABLES Final Result [facility] [address] [place] [address] * (ABNORMAL) B-type natriuretic peptide (04/19/2025 6:25 PM EDT) BNP 254(H) 0 - 100 pg/mL 04/19/2025 7:07 PM EDT [facility] ([facility]) Blood Venous blood specimen / Unknown Venipuncture / Unknown 04/19/2025 6:25 PM EDT 04/19/2025 6:36 PM EDT us Venu Samaniego MD LAB BLOOD ORDERABLES Final Result [facility] ([facility]) [address] [place] [address] * LIMITED ECHO (TTE) (04/19/2025 3:37 PM EDT) Anatomical Region Laterality Modality Other 04/19/2025 2:13 PM EDT Narrative 04/19/2025 4:30 PM EDT 1 1 [place] [facility] Heart Station [address] [place] [address] [phone] (fax) Echocardiogram-[facility] Name: KRISTY DOHERTY Study Date: 04/19/2025 02:13 PM B/P: / HR: Date of : 1955 Location: [facility] Height: 68 in. Age: 69 year(s) Patient Room: [facility]3 Weight: 182 lb. Gender: Male Patient Status: InPt BSA: 1.96 m2 Indication: pericardialeffusion, h/o 35mm Watchman FLX Examination: Limited Echo Image Quality: Fair Findings Pericardium: Moderate pericardial effusion baseline. Post pericardiocentesis there is minimal pericardial effusion. Procedure Staff Reading Group: [facility] Referring Physician: RUDY KING Property Consultant: SAMI Starr, RDCS Ordering Physician: VENU SAMANIEGO Procedure Note Fani Denney MD - 04/19/2025 1 1 [place] [facility] Heart Station [address] [facility] [address] [phone] (fax) Echocardiogram-[facility] Name: KRISTY DOHERTY Study Date: 04/19/2025 02:13 PM B/P: / HR: Date of : 1955 Location: [facility] Height: 68 in. Age: 69 year(s) Patient Room: 3183 Weight: 182 lb. Gender: Male Patient Status: InPt BSA: 1.96 m2 Indication: pericardialeffusion, h/o 35mm Watchman FLX Examination: Limited Echo Image Quality: Fair Findings Pericardium: Moderate pericardial effusion baseline. Post pericardiocentesis there is minimal pericardial effusion. Procedure Staff Reading Group: [facility] Referring Physician: RUDY KING Property Consultant: SAIM Starr, RDCS Ordering Physician: VENU SAMANIEGO us Venu Samaniego MD CV ECHO PROCEDURES Final R esult * Pathology Review (04/19/2025 3:23 PM EDT) Pathology Review Reviewed. Electronica lly signed by Kristy Dsouza MD on 04/20/25 at 9:17 AM. 04/20/2025 9:17 AM EDT [facility] ([facility]) Fluid (Pericardial Fluid) Non-blood Collection / Unknown 04/19/2025 3:23 PM EDT 04/19/2025 3:33 PM EDT us Venu Samaniego MD LAB BLOOD ORDERABLES Final Result [facility] ([facility]) [address] [place] [address] * Body fluid cell differential (04/19/2025 3:23 PM EDT) Total Cells Counted for Differential 100 04/20/2025 9:17 AM EDT [facility] ([employer]) Neutrophils Manual, Fluid 96 04/20/2025 9:17 AM EDT [facility] ([facility]) Lymphocytes Manual, Fluid 1 04/20/2025 9:17 AM EDT [facility] ([employer]) [place]/Macrophage Manual, Fluid 04/20/2025 9:17 AM EDT [facility] ([facility]) Eosinophils Manual, Fluid 04/20/2025 9:17 AM EDT [facility] ([facility]) Basophils Manual, Fluid 04/20/2025 9:17 AM EDT [facility] ([facility]) Mesothelial Manual, Fluid 3 04/20/2025 9:17 AM EDT [facility] ([facility]) Other Cells, BF Manual 04/20/2025 9:17 AM EDT [facility] ([facility]) Fluid (Pericardial Fluid) Non-blood Collection / Unknown 04/19/2025 3:23 PM EDT 04/19/2025 3:33 PM EDT Narrative [facility] ([facility]) - 04/20/2025 9:17 AM EDT Differential performed on cytospin us Venu Samaniego MD LAB BODY FLUIDS AND STOOLS ORDERABLES Final Result Performing Organization Address City/[facility]/ZIP Co de Phone Number [facility] ([facility]) [address] [place], [place] [id number] * Anaerobic culture (04/19/2025 3:23 PM EDT) Anaerobic Culture No anaerobes isolated at day 5 FLORA 04/25/2025 10:12 AM EDT [facility] ([facility]) 04/19/2025 3:23 PM EDT 04/19/2025 3:33 PM EDT us Venu Samaniego MD LAB MICROBIOLOGY - GENERAL ORDERABLES Final Result [facility] ([facility]) [address] [place] [address] * Body fluid culture (04/19/2025 3:23 PM EDT) Culture No growth at 5 days FLORA 04/24/2025 7:53 AM EDT [facility] ([facility]) Gram Stain Result No polymorphonuclear leukocytes seen 04/24/2025 7:53 AM EDT [facility] ([facility]) Gram Stain Result No organisms seen 04/24/2025 7:53 AM EDT [facility] ([facility]) Fluid Non-blood Collection / Unknown 04/19/2025 3:23 PM EDT 04/19/2025 3:33 PM EDT us Venu Samaniego MD LAB MICROBIOLOGY - GENERAL ORDERABLES Final Result [facility] ([facility]) [address] [place] [address] * (ABNORMAL) Body fluid cell count with differential (04/19/2025 3:23 PM EDT) Fluid Type Cell Count Pericardial Fluid 04/20/2025 9:17 AM EDT [facility] ([facility]) Fluid Volume 300mL 04/20/2025 9:17 AM EDT [facility] ([facility]) RBC, Fluid 245,940(H) 0 - 1,000 RBC/uL 04/20/2025 9:17 AM EDT [facility] ([facility]) Total Number of Nucleated Cells 14,314 TNC/uL 04/20/2025 9:17 AM EDT [facility] ([facility]) Fluid (Pericardial Fluid) Non-blood Collection / Unknown 04/19/2025 3:23 PM EDT 04/19/2025 3:33 PM EDT Narrative [facility] ([facility]) - 04/20/2025 9:17 AM EDT Reference Ranges for Total Number of Nucleated Cells: Cerebrospinal Fluid 0-5 TNC/uL Pleural Fluid 0-1,000 TNC/uL Peritoneal Fluid 0-100 TNC/uL Pericardial Fluid 0-1,000 TNC/uL Synovial Fluid 0-200 TNC/uL Reference Ranges for Erythrocytes in Body Fluid: Pleural Fluid 0-100,000 RBC/uL Peritoneal Fluid 0-50,000 RBC/uL Unspecified Fluid 0-1,000 RBC/uL us Venu Samaniego MD LAB BODY FLUIDS AND STOOLS ORDERABLES Final Result Performing Organization Address City/[facility]/ZIP Co de Phone Number [facility] ([facility]) [address] [place] [address] * Non-instructor [employer] cytology - cellular exam (04/19/2025 3:23 PM EDT) Case Report Non-gynecologic Cytology Case: [id number] Authorizing Provider: Venu Samaniego MD Collected: 04/19/2025 1523 [facility] Received: 04/19/2025 1533 Pathologist: Halima Marr MD Specimen: Pericardial Fluid 04/24/2025 5:46 PM EDT [facility] ([facility]) Final Diagnosis A. Pericardial fluid: - Negative for malignancy. - Marked acute inflammation. 04/24/2025 5:46 PM EDT [facility] ([facility]) at 1746 EDT Microscopic Description Satisfactory for evaluation. Examination of the ThinPrep slide and cell block reveals rare benign mesothelial cells and abundant acute inflammation. 04/24/2025 5:46 PM EDT [facility] ([facility]) Clinical Information Pericardial effusion 04/24/2025 5:46 PM EDT [facility] ([facility]) Gross Description 250 mL opaque, red fluid 04/24/2025 5:46 PM EDT [facility] ([facility]) Pericardial Fluid 04/19/2025 3:23 PM EDT 04/19/2025 3:33 PM EDT us Venu Samaniego MD LAB CYTOLOGY ORDERABLES Fi nal Result [facility] ([facility]) [address] [place] [address] * LEFT HEART CATH, RIGHT HEART CATH, PERICARDIOCENTESIS (04/19/2025 3:22 PM EDT) Anatomical Region Laterality Modality Other Narrative 04/19/2025 3:51 PM EDT PROCEDURE PHYSICIAN: Venu Samaniego MD Clinical Presentation: 69 y.o. Male with chest pain and a new pericardial effusion with concern of cardiac tamponade Final Impression: 1) Right and left heart catheterization did not demonstrate equalization of diastolic pressures, however, there was significant aortic pressure variation with inspiration (25 mmHg) and elevated R atrial, RVEDP and LV EDP 2) Pericardiocentesis, which removed 300 ml serosanguinous fluid, demonstrated equalization of R atrial and pericardial pressures, however RVEDP was greater than pericardial pressure Procedures Performed: right and left heart catheterization, ultrasound guidance for vascular access, pericardiocentesis Procedure Description: The patient was brought to the cardiac catheterization lab in a fasting state. Informed written consent was obtained. javier-out was performed. he was prepped and draped in usual sterile fashion and 1% lidocaine was infiltrated. Using ultrasound guidance and a micropuncture access technique a 6 Hungarian sheath was placed in the right femoral vein a 4 Fr sheath was placed in the RFA. The Carrasquillo catheter was advanced under fluoroscopic and hemodynamic monitoring to the right atrium. Pressure obtained of the right atrium, right ventricle, pulmonary artery, pulmonary capillary position. Oxygen saturation drawn for the pulmonary artery and [place] cardiac with a cardiac index were calculated. A 4 Fr pigtail was placed in the LV and simultaneous pressures obtained. After reviewing the pressure data it was determined to perform therapeutic pericardiocentesis. Anesthesia was obtained over the L subxiphoid region. Using ultrasound and fluoroscopic guidance the pericardium was entered with a micropuncture wire and a 6 Fr pericardial drain placed. Pressures were repeated. All catheters and wires were removed. The sheath was removed and pressure was applied to obtain hemostasis. Specimens Removed: None Complications: None Hemodynamic Data, baseline: RA: 15/12/12 mmHg Pericardi RV: 38/16 mmHg PA: 37/19/26 mmHg PCWP: mmHg LV: 90/15 mmHg CO: 6.04 L/min CI: 3.07 L/min/m2 O2 Sat: PA sat: 67% AO sat: 90% Hemodynamic Data, Pericardium: RA: 12 mmHg Pericardium: 12 mmHg Hemodynamic Data, Post-pericardiocentesis: RA: 8 mmHg Pericardium: 3 mmHg Study Details Pericardial effusion [I31.39] us Venu Samaniego MD CV CARDIAC CATH PROCEDURES Final Result * (ABNORMAL) POC Hb02% (04/19/2025 2:47 PM EDT) [id number]% 67.2(A) 90 - 95 % QC Pass/Fail Passed QC LOT # [id number] QC Expiration Date 73,126 SAMPLESITE nl Blood Venous blood specimen / Unknown 04/19/2025 2:47 PM EDT Narrative Farshad Ramirez, [place] - 04/20/2025 6:16 AM EDT Oper 9082 us Benedict Pascual MD POINT OF CARE TEST ENTER/EDIT OR DERABLES Final Result * (ABNORMAL) POC Hb02% (04/19/2025 2:47 PM EDT) Pathologist [facility] [place] [id number]% 89.8(A) 90 - 95 % QC Pass/Fail Passed QC LOT # [id number] QC Expiration Date 73,126 SAMPLESITE nl Blood Venous blood specimen / Unknown 04/19/2025 2:47 PM EDT Narrative Farshad Ramirez [place] - 04/20/2025 6:16 AM EDT Oper 9082 us Benedict Pascual MD POINT OF CARE TEST ENTER/EDIT OR DERABLES Final Result * Light Green Top (04/19/2025 2:44 PM EDT) [facility] Extra Tube Hold for add-ons. 04/19/2025 4:01 PM EDT [facility] ([facility]) Comment:Auto resulted. Blood Venous blood specimen / Unknown Venipuncture / Unknown 04/19/2025 2:44 PM EDT 04/19/2025 2:55 PM EDT Result Rikki Pascual MD LAB BLOOD ORDERABLES Final Resul t [facility] ([facility]) [address] [place] [address] * COLLIN (04/19/2025 2:44 PM EDT) Pathologist [facility] [place] COLLIN Titer <1:40 <=1:40 04/24/2025 1:12 PM EDT [facility] ([facility]) Comment:Test performed using DAVID IFA COLLIN Hep-2 Test, a pre-standardized assay designed for the qualitative and semi-quantitative detection of antinuclear antibodies. Blood Venous blood specimen / Unknown Venipuncture / Unknown 04/19/2025 2:44 PM EDT 04/19/2025 2:54 PM EDT Venu Samaniego MD LAB BLOOD ORDERABLES Final Result Performing Organization Address [facility]/ZIP Co de Phone Number [facility]) [address] [place] [address] * (ABNORMAL) C-reactive protein (04/19/2025 2:44 PM EDT) Pathologist [facility] [place] CRP 145.7(H) <=5.0 mg/L 04/20/2025 9:18 AM EDT [facility] ([facility]) Comment:Testing performed us ing a new methodology, turbidimetry. Normal ranges have been updated. Old normal range was <8 mg/L. Blood Venous blood specimen / Unknown Venipuncture / Unknown 04/19/2025 2:44 PM EDT 04/19/2025 2:54 PM EDT Venu Samaniego MD LAB BLOOD ORDERABLES Final Result Performing Organization Address [facility] de Phone Number [facility]) [address] [place] [id number] * Lavender Top (04/19/2025 2:32 PM EDT) Pathologist [facility] [place] Extra Tube Hold for add-ons. 04/19/2025 4:01 PM EDT [facility] ([facility]) Comment:Auto resulted. Blood Venous blood specimen / Unknown Venipuncture / Unknown 04/19/2025 2:32 PM EDT 04/19/2025 2:55 PM EDT Benedict Pascual MD LAB BLOOD ORDERABLES Final Resul t Performing Organization Address [facility] Co de Phone Number [facility]) [address] [facility] [place] [address] * COMPLETE ECHO (TTE) (04/19/2025 1:13 PM EDT) Anatomical Region Laterality Modality Other 04/19/2025 12:4 6 PM EDT Narrative 04/19/2025 1:44 PM EDT 1 1 [place] [facility] Heart Station [address] [place] [address] [phone] (fax) Echocardiogram-[facility] Name: KRISTY DOHERTY Study Date: 04/19/2025 12:46 PM B/P: 97 mmHg/71 mmHg HR: Date of : 1955 Location: [facility] Height: 68 in. Age: 69 year(s) Patient Room: [facility] Weight: 182 lb. Gender: Male Patient Status: InPt BSA: 1.96 m2 Indication: Chest Pain, s/p 35mm Watchman FLX Examination: Echocardiogram (Complete) Image Quality: Fair Patient Consent: Procedure explained to patient Conclusions Left Ventricle: The left ventricle is normal size. Global left ventricular systolic function is normal. The EF is 60 % visually. Left ventricular wall thickness is normal. No regional wall motion abnormality. Right Ventricle: The right ventricle appears normal in size. Right ventricular systolic function appears normal. Doppler studies suggest normal right sided pressures. Left Atrium: Watchman device visualized . The left atrium appears normal in size. Aortic Valve: Mild aortic valve regurgitation. Tricuspid Valve: Mild tricuspid regurgitation. Pericardium: There is a moderate circumfrential pericardial effusion. There is also, significant mitral inflow variations consistent with early tamponade physiology. Measurements Left Ventricle Label Value Normal Value LVOT VTI 11.1 cm (18cm - 22cm) LVOT PGmax 3 mmHg LVEF visual 60 % LVOT PGmean 1 mmHg Right Ventricle Label Value Normal Value TAPSE 0.97 cm Aortic Valve Label Value Normal Value AV DVI 0.5 AV VTI 23.1 cm Mitral Valve Label Value Normal Value MV E Vmax 0.54 m/s MV A Vmax 0.79 m/s MV E/A 0.68 MV E/E' lateral 7.6 MV E' lateral 0.07 m/s Tricuspid Valve Label Value Normal Value RA Pressure 3 mmHg RVSP 30 mmHg TR Vmax 2.59 m/s Valvular Assessment LVOT 0.7 - 1.1 m/sec Aortic Valve 1.0 - 1.7 m/sec Mitral Valve 0.6 - 1.3 m/sec Tricuspid Valve 0.3 - 0.7 m/sec Pulmonic Valve 0.6 - 0.9 m/sec Regurgitation Mild No Mild No Max Velocity 0.81 m/sec 1.62 m/s 0.54 m/sec 1.02 m/s Max Gradient 10.00 mmHg 4.00 mmHg Mean Gradient 5.00 mmHg Findings Left Ventricle: The left ventricle is normal size. Global left ventricular systolic function is normal. The EF is 60 % visually. Left ventricular wall thickness is normal. No regional wall motion abnormality. Right Ventricle: The right ventricle appears normal in size. Right ventricular systolic function appears normal. Doppler studies suggest normal right sided pressures. Left Atrium: Watchman device visualized . The left atrium appears normal in size. Right Atrium: The right atrium appears normal in size. Mitral Valve: The mitral valve is normal in mobility and thickness. No mitral regurgitation. Aortic Valve: Focal aortic cusp thickening is noted. Mild aortic valve regurgitation. Tricuspid Valve: Normal tricuspid valve. Mild tricuspid regurgitation. Pulmonic Valve: Normal pulmonary valve. No pulmonary regurgitation. Aorta: The aortic root exhibits normal size. Great Vessels: IVC: Normal size and course of the IVC. Pericardium: There is a moderate circumfrential pericardial effusion. There is also, significant mitral inflow variations consistent with early tamponade physiology. Procedure Staff Reading Group: [facility] Property Consultant: Bryanna Cazares RDCS Ordering Physician: HAKAN REYES Procedure Note Mitesh Vernon MD - 04/19/2025 1 1 [place] [facility] Heart Station [address] [place] [address] [phone] (fax) Echocardiogram-[facility] Name: KRISTY DOHERTY Study Date: 04/19/2025 12:46 PM B/P: 97 mmHg/71 mmHg HR: Date of : 1955 Location: [facility] Height: 68 in. Age: 69 year(s) Patient Room: 3183 Weight: 182 lb. Gender: Male Patient Status: InPt BSA: 1.96 m2 Indication: Chest Pain, s/p 35mm Watchman FLX Examination: Echocardiogram (Complete) Image Quality: Fair Patient Consent: Procedure explained to patient Conclusions Left Ventricle: The left ventricle is normal size. Global left ventricular systolic function is normal. The EF is 60 % visually. Left ventricular wall thickness is normal. No regional wall motion abnormality. Right Ventricle: The right ventricle appears normal in size. Right ventricular systolic function appears normal. Doppler studies suggest normal right sided pressures. Left Atrium: Watchman device visualized . The left atrium appears normal in size. Aortic Valve: Mild aortic valve regurgitation. Tricuspid Valve: Mild tricuspid regurgitation. Pericardium: There is a moderate circumfrential pericardial effusion. There is also, significant mitral inflow variations consistent with early tamponade physiology. Measurements Left Ventricle Label Value Normal Value LVOT VTI 11.1 cm (18cm - 22cm) LVOT PGmax 3 mmHg LVEF visual 60 % LVOT PGmean 1 mmHg Right Ventricle Label Value Normal Value TAPSE 0.97 cm Aortic Valve Label Value Normal Value AV DVI 0.5 AV VTI 23.1 cm Mitral Valve Label Value Normal Value MV E Vmax 0.54 m/s MV A Vmax 0.79 m/s MV E/A 0.68 MV E/E' lateral 7.6 MV E' lateral 0.07 m/s Tricuspid Valve Label Value Normal Value RA Pressure 3 mmHg RVSP 30 mmHg TR Vmax 2.59 m/s Valvular Assessment LVOT 0.7 - 1.1 m/sec Aortic Valve 1.0 - 1.7 m/sec Mitral Valve 0.6 - 1.3 m/sec Tricuspid Valve 0.3 - 0.7 m/sec Pulmonic Valve 0.6 - 0.9 m/sec Regurgitation Mild No Mild No Max Velocity 0.81 m/sec 1.62 m/s 0.54 m/sec 1.02 m/s Max Gradient 10.00 mmHg 4.00 mmHg Mean Gradient 5.00 mmHg Findings Left Ventricle: The left ventricle is normal size. Global left ventricular systolic function is normal. The EF is 60 % visually. Left ventricular wall thickness is normal. No regional wall motion abnormality. Right Ventricle: The right ventricle appears normal in size. Right ventricular systolic function appears normal. Doppler studies suggest normal right sided pressures. Left Atrium: Watchman device visualized . The left atrium appears normal in size. Right Atrium: The right atrium appears normal in size. Mitral Valve: The mitral valve is normal in mobility and thickness. No mitral regurgitation. Aortic Valve: Focal aortic cusp thickening is noted. Mild aortic valve regurgitation. Tricuspid Valve: Normal tricuspid valve. Mild tricuspid regurgitation. Pulmonic Valve: Normal pulmonary valve. No pulmonary regurgitation. Aorta: The aortic root exhibits normal size. Great Vessels: IVC: Normal size and course of the IVC. Pericardium: There is a moderate circumfrential pericardial effusion. There is also, significant mitral inflow variations consistent with early tamponade physiology. Procedure Staff Reading Group: [place] [facility] Property Consultant: Bryanna Cazares RDCS Ordering Physician: HAKAN REYES Hakan Reyes PA-C CV ECHO PROCEDURES Final Result * Sedimentation rate (04/19/2025 12:14 PM EDT) [facility] Sed Rate 18 <20 mm/hr 04/19/2025 3:3 7 PM EDT [facility] ([facility]) Blood Venous blood specimen / Unknown Venipuncture / Unknown 04/19/2025 12:14 PM EDT 04/19/2025 12:35 PM EDT Venu Samaniego MD LAB BLOOD ORDERABLES Final Result [facility] ([facility]) [address] [place] [address] * High Sensitivity Troponin I (04/19/2025 12:14 PM EDT) [facility] High Sensitivity Troponin I 7 <20 ng/L 04/19/2025 2:02 PM EDT [facility] ([facility]) Blood Venous blood specimen / Unknown Venipuncture / Unknown 04/19/2025 12:14 PM EDT 04/19/2025 12:35 PM EDT us Mitesh Vernon MD LAB BLOOD ORDERABLES Final Res ult [facility] ([facility]) [address] [place] [address] * (ABNORMAL) Comprehensive metabolic panel (04/19/2025 12:14 PM EDT) Sodium 126(L) 136 - 145 mmol/L 04/19/2025 1:01 PM EDT [facility] ([facility]) Potassium 5.0 3.5 - 5.1 mmol/L 04/19/2025 1:01 PM EDT [facility] ([facility]) Chloride 91(L) 98 - 107 mmol/L 04/19/2025 1:01 PM EDT [facility] ([facility]) CO2 28 21 - 31 mmol/L 04/19/2025 1:01 PM EDT [facility] ([facility]) Anion Gap 12 7 - 20 mmol/L 04/19/2025 1:01 PM EDT [facility] ([facility]) BUN 17 7 - 25 mg/dL 04/19/2025 1:01 PM EDT [facility] ([facility]) Creatinine 0.98 0.70 - 1.30 mg/dL 04/19/2025 1:01 PM EDT [facility] ([facility]) BUN/Creatinine Ratio 17.3 08/2024 1:01 PM EDT [facility] ([facility]) Glucose 109(H) 70 - 100 mg/dL 04/19/2025 1:01 PM EDT [facility] ([facility]) Calcium 9.5 8.6 - 10.3 mg/dL 04/19/2025 1:01 PM EDT [facility] ([facility]) AST 22 13 - 39 U/L 04/19/2025 1:01 PM EDT [facility] ([facility]) ALT (SGPT) 27 7 - 52 U/L 04/19/2025 1:01 PM EDT [facility] ([facility]) Alkaline Phosphatase 51 34 - 104 U/L 04/19/2025 1:01 PM EDT [facility] ([facility]) Total Protein 6.8 6.0 - 8.3 g/dL 04/19/2025 1:01 PM EDT [facility] ([facility]) Albumin 3.8 3.5 - 5.7 g/dL 04/19/2025 1:01 PM EDT [facility] ([facility]) Total Bilirubin 0.7 0.3 - 1.0 mg/dL 04/19/2025 1:01 PM EDT [facility] ([facility]) eGFR 83.5 >60.0 mL/min/1. 73m*2 04/19/2025 1:01 PM EDT [facility] ([facility]) Comment:[facility] s estimated glomerular filtration rate (eGFR) will [...] disproportionately affect any one group of individuals. Blood Venous blood specimen / Unknown Venipuncture / Unknown 04/19/2025 12:14 PM EDT 04/19/2025 12:35 PM EDT us Hakan Reyes PA-C LAB BLOOD ORDERABLES Final Resu lt [facility]) [address] [place] [address] * (ABNORMAL) CBC (04/19/2025 12:14 PM EDT) Auto WBC 10.71(H) 4.00 - 10.60 10*3/uL 04/19/2025 12:50 PM EDT [facility] ([facility]) RBC 4.02(L) 4.20 - 5.70 10*6/uL 04/19/2025 12:50 PM EDT [facility] ([facility]) Hemoglobin 13.0 13.0 - 17.0 g/dL 04/19/2025 12:50 PM EDT [facility] ([facility]) Hematocrit 36.8(L) 39.0 - 50.0 % 04/19/2025 12:50 PM EDT [facility] ([facility]) MCV 91.5 82.0 - 98.0 fL 04/19/2025 12:50 PM EDT [facility] ([facility]) MCH 32.3 27.0 - 33.0 pg 04/19/2025 12:50 PM EDT [facility] ([facility]) MCHC 35.3(H) 32.0 - 35.0 g/dL 04/19/2025 12:50 PM EDT [facility] ([facility]) RDW 13.8 11.5 - 15.0 % 04/19/2025 12:50 PM EDT [facility] ([facility]) Platelets 185 150 - 400 10*3/uL 04/19/2025 12:50 PM EDT [facility] ([facility]) Blood Venous blood specimen / Unknown Venipuncture / Unknown 04/19/2025 12:14 PM EDT 04/19/2025 12:35 PM EDT us Hakan Reyes PA-C LAB BLOOD ORDERABLES Final Resu lt [facility] ([facility]) [address] [place] [address] * ECG 12 lead (04/19/2025 12:09 PM EDT) Ventricular Rate 99 BPM GE MUSE Atrial Rate 99 BPM GE MUSE ME Interval 196 ms GE MUSE QRS DURATION 104 ms GE MUSE QT Interval 322 ms GE MUSE QTC CALCULATION(BAZE TT) 413 ms GE MUSE P Welch 43 degrees GE MUSE R-Welch 21 degrees GE MUSE T Wave Welch 67 degrees GE MUSE 04/19/2025 12:0 3 PM EDT 04/19/2025 12:19 PM EDT Impressions GE MUSE - 04/19/2025 12:19 PM EDT Normal sinus rhythm Low voltage QRS Cannot rule out Anteroseptal infarct (cited on or before 06-FEB-2025) Abnormal ECG When compared with ECG of 06-FEB-2025 07:43, Premature ventricular complexes are no longer Present Questionable change in initial forces of Lateral QT has shortened Confirmed by Bobo Raymond ([id number]) on 04/19/2025 12:19:35 PM Narrative Procedure Note Bobo Raymond MD - 04/19/2025 IMPRESSION: Normal sinus rhythm Low voltage QRS Cannot rule out Anteroseptal infarct (cited on or before 06-FEB-2025) Abnormal ECG When compared with ECG of 06-FEB-2025 07:43, Premature ventricular complexes are no longer Present Questionable change in initial forces of Lateral QT has shortened Confirmed by Bobo Raymond (80) on 04/19/2025 12:19:35 PM Hakan Reyes PA-C ECG ORDERABLES Final Result [employer] documented in this encounter Visit Diagnoses Diagnosis Chest pain- Primary Unspecified chest pain Chest pain Unspecified chest pain Pericardial effusion Unspecified disease of pericardium Right ventricular dysfunction Unspecified heart disease Paroxysmal atrial fibrillation (CMS/HCC) Atrial fibrillation PVC (premature ventricular contraction) Other premature beats Chest pain, unspecified type Heart failure with reduced ejection fraction (CMS/HCC) Generalized weakness Other forms of angina pectoris Hyponatremia Hyposmolality and/or hyponatremia Hematoma of intravenous catheter site, sequela Chronic systolic heart failure (CMS/HCC) Chronic systolic heart failure Cardiomyopathy (CMS/HCC) Other primary cardiomyopathies Atrial fibrillation (CMS/HCC) Atrial fibrillation Heart failure with reduced ejection fraction (CMS/HCC) Uncomplicated asthma Primary hypertension Unspecified essential hypertension 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 Pericardial effusion Unspecified disease of pericardium Hyponatremia Hyposmolality and/or hyponatremia Leukocytosis Leukocytosis, unspecified Hypotension due to hypovolemia Sinus tachycardia Other specified cardiac dysrhythmias Right ventricular dysfunction Unspecified heart disease Cardiogenic shock (CMS/HCC) Cardiogenic shock ATN (acute tubular necrosis) Acute kidney failure with lesion of tubular necrosis Hematoma of intravenous catheter site Cardiac tamponade, nontraumatic Pericardial effusion Unspecified disease of pericardium Other hypotension Right ventricular dysfunction Unspecified heart disease documented in this encounter Admitting Diagnoses Diagnosis Chest pain Unspecified chest pain documented in this encounter Administered Medications Inactive Administered Medications - up to 3 most recent administrations Medication Order MAR Action Action Date Dose Rate Site acetaminophen (Tylenol) tablet 650 mg 650 mg, oral, Every 6 hours PRN, mild pain (1-3 pain score), headaches, fever greater than or equal to 38 degrees Celsius, (1-3), Starting on Lila 04/19/25 at 1150, For 99 days Given 05/04/2025 3:45 PM EDT 650 mg Given 05/03/2025 9:36 PM EDT 650 mg Given 05/03/2025 2:50 AM EDT 650 mg allopurinol (Zyloprim) tablet 300 mg 300 mg, oral, Daily, First dose on Lila 04/19/25 at 1230, For 99 days Given 05/04/2025 9:23 AM EDT 300 mg Given 05/03/2025 10:14 AM EDT 300 mg Given 05/02/2025 9:50 AM EDT 300 mg alteplase (Cathflo Activase) injection 2 mg 2 mg, intra-catheter, As needed, line care, Starting on Wed04/27/25 at 2040, For 99 days, For occluded catheter ports. Instill 2 mg (2 mL) into each port, and retain for 0.5 - 2 hours. May repeat if catheter remains occluded. Dilute each 2 mg vial with 2.2 mL sterile water to give 1 mg/mL final concentration. Swirl gently to mix; do not shake. BUD: 8 hours at room temp. Given 04/28/2025 11:03 AM EDT 2 mg Given 04/28/2025 8:05 AM EDT 2 mg Given 04/28/2025 6:24 AM EDT 2 mg amiodarone (Nexterone) infusion 1 mg/min (33.3333 mL/hr, rounded to 33.3 mL/hr), intravenous, Continuous, Starting on Wed04/24/25 at 1700, For 6 hours, Use in-line filter. Give through central venous catheter whenever available. Premix Rate/Dose Verify 04/24/2025 11:00 PM EDT 1 mg/min 33.3 mL/hr New Bag 04/24/2025 9:56 PM EDT 1 mg/min 33.3 mL/hr Rate/Dose Verify 04/24/2025 9:00 PM EDT 1 mg/min 33.3 mL /hr amiodarone (Nexterone) infusion 0.5 mg/min (16.6667 mL/hr, rounded to 16.67 mL/hr), intravenous, Continuous, Starting on Wed04/24/25 at 2306, For 99 days, Use in-line filter. Give through central venous catheter whenever available. Premix Rate/Dose Verify 04/29/2025 1:00 PM EDT 0.5 mg/min 16.67 mL/hr Rate/Dose Verify 04/29/2025 12:00 PM EDT 0.5 mg/min 16.67 mL/hr New Bag 04/29/2025 11:12 AM EDT 0.5 mg/min 16.67 mL/hr aspirin chewable tablet 81 mg 81 mg, oral, Daily with breakfast, First dose on Wed04/20/25 at 0800, For 99 days Given 05/04/2025 9:23 AM EDT 81 mg Given 05/03/2025 8:16 AM EDT 81 mg Given 05/02/2025 8:50 AM EDT 81 mg atorvastatin (Lipitor) tablet 40 mg 40 mg, oral, Nightly, First dose on Wed04/19/25 at 2200, For 99 days Given 05/03/2025 9:31 PM EDT 40 mg Given 05/02/2025 9:26 PM EDT 40 mg Given 05/01/2025 9:55 PM EDT 40 mg calcium gluc in NaCl, iso-osm 1 gram/100 mL solution 1 g 1 g, intravenous, at 100 mL/hr, Administer over 1 Hours, Every 1 hour, First dose on Wed04/28/25 at 0145, For 1 dose New Bag 04/28/2025 2:03 AM EDT 1 g 100 mL/hr calcium gluc in NaCl, iso-osm 1 gram/100 mL solution 1 g 1 g, intravenous, at 100 mL/hr, Administer over 1 Hours, Every 1 hour, First dose on Wed04/28/25 at 2115, For 1 dose New Bag 04/28/2025 11:07 PM EDT 1 g 100 mL/hr ceFAZolin in dextrose (iso-os) (Ancef) IVPB 2 g 2 g, intravenous, Administer over 30 Minutes, Every 12 hours, First dose on Wed04/19/25 at 1600, For 3 days, premix bag, Suspected Indication (Select all that apply): Cellulitis, Skin and Soft Tissue, Select Type: cellulitis WITHOUT purulent drainage, Coverage (Select all that apply): MSSA: Staph, Methicillin-Susceptible New Bag 04/20/2025 4:01 AM EDT 2 g New Bag 04/19/2025 4:28 PM EDT 2 g ceFAZolin in dextrose (iso-os) (Ancef) IVPB 2 g 2 g, intravenous, Administer over 30 Minutes, Every 8 hours, First dose (after last modification) on Wed04/20/25 at 1200, For 2 days, premix bag, Suspected Indication (Select all that apply): Cellulitis, Skin and Soft Tissue, Select Type: cellulitis WITHOUT purulent drainage, Coverage (Select all that apply): MSSA: Staph, Methicillin-Susceptible New Bag 04/22/2025 4:07 AM EDT 2 g New Bag 04/21/2025 7:22 PM EDT 2 g New Bag 04/21/2025 12:07 PM EDT 2 g clopidogrel (Plavix) tablet 75 mg 75 mg, oral, Daily, First dose on Wed04/19/25 at 1230, For 99 days Given 05/04/2025 9:23 AM EDT 75 mg Given 05/03/2025 10:14 AM EDT 75 mg Given 05/02/2025 9:50 AM EDT 75 mg colchicine tablet 0.6 mg 0.6 mg, oral, 2 times daily, First dose on Wed04/19/25 at 2200, For 99 days, On hold since Wed05/03/2025 at 0836 until manually unheld Given 05/02/2025 9:26 PM EDT 0.6 mg Given 05/02/2025 9:52 AM EDT 0.6 mg Given 05/01/2025 9:55 PM EDT 0.6 mg dapagliflozin propanediol (Farxiga) tablet 10 mg 10 mg, oral, Once Daily, First dose on Wed04/19/25 at 1230, For 99 days Given 05/04/2025 9:23 AM EDT 10 mg Given 05/03/2025 10:14 AM EDT 10 mg Given 05/02/2025 8:50 AM EDT 10 mg darbepoetin richelle (Aranesp) injection (albumin free) 60 mcg 60 mcg, subcutaneous, Once, On Wed04/29/25 at 1030, For 1 dose, Indications: anemiaIndications:anemi a Given 04/29/2025 1:42 PM EDT 60 mcg Left Lower Abdomen dextrose 50 % in water (D50W) syringe 25 g 25 g, intravenous, Every 15 min PRN, capillary blood glucose < 70 mg/dL and patient unable to take oral and has IV access, Starting on Wed04/27/25 at 0842, For 99 days, - Recheck blood glucose 5 minutes after dextrose administration. - Repeat treatment as ordered until blood glucose is greater than or equal to 80 mg/dL. - Provide a snack/meal within 1 hour after correction of hypoglycemia if not NPO. - If patient NPO or on enteral tube feeds, contact physician for potential additional interventions(s) (i.e. 5% or 10% dextrose IV fluids or tube feeding bolus) dialysate 3K/3Ca with bicarb CRRT solution (NxStage 402 + 3 mEq/L K) 2,000 mL/hr, CRRT, Continuous, Starting on Wed04/27/25 at 1830, For 99 days, Use: Dialysate Fluid New Bag 04/29/2025 7:59 AM EDT 2,000 mL/hr 2000 mL/hr New Bag 04/29/2025 7:58 AM EDT 2,000 mL/hr 2000 mL/hr New Bag 04/29/2025 7:57 AM EDT 2,000 mL/hr 2000 mL/hr dialysate 4K/3Ca with bicarb CRRT solution (NxStage 401) 2,000 mL/hr, CRRT, Continuous, Starting on Wed04/29/25 at 1030, For 99 days, Use: Dialysate Fluid New Bag 05/01/2025 8:25 AM EDT 2,000 mL/hr 2000 mL/hr New Bag 05/01/2025 8:24 AM EDT 2,000 mL/hr 2000 mL/hr New Bag 05/01/2025 8:23 AM EDT 2,000 mL/hr 2000 mL/hr DOBUTamine 500 mg/250 mL (2,000 mcg/mL) infusion 2.5-15 mcg/kg/min 82.7 kg (6.2025-37.215 mL/hr, rounded to 6.2-37.22 mL/hr), intravenous, Continuous, Starting on [facility] 04/26/25 at 1130, For 99 days, Initial dose: other, Explanatory comment: Start at 2 mcg/kg/min, Adjust dose by: No more than 5 mcg/kg/min every 10 minutes to ordered goal, Titrate to: Maintain CI > 2.2 Rate/Dose Verify 04/29/2025 1:00 PM EDT 2 mcg/kg/min 4.96 mL/hr Rate/Dose Verify 04/29/2025 12:00 PM EDT 2 mcg/kg/min 4.96 mL/hr Rate/Dose Verify 04/29/2025 11:00 AM EDT 2 mcg/kg/min 4.96 mL/hr DOBUTamine 500 mg/250 mL (2,000 mcg/mL) infusion 2.5-15 mcg/kg/min 82.7 kg (6.2025-37.215 mL/hr, rounded to 6.2-37.22 mL/hr), intravenous, Continuous, Starting on [facility] 04/29/25 at 1345, For 96 days, Initial dose: other, Explanatory comment: Start at 1 mcg/kg/min, Adjust dose by: No more than 5 mcg/kg/min every 10 minutes to ordered goal, Titrate to: Maintain CI > 2.2 Rate/Dose Verify 04/30/2025 12:00 PM EDT 1 mcg/kg/min 2.48 mL/hr Rate/Dose Verify 04/30/2025 11:00 AM EDT 1 mcg/kg/min 2.48 mL/hr Rate/Dose Verify 04/30/2025 10:00 AM EDT 1 mcg/kg/min 2.48 mL/hr doxycycline (Vibramycin) capsule 100 mg 100 mg, oral, 2 times daily, First dose on [facility] 05/03/25 at 1100, For 7 days, Take with at least 8 ounces (large glass) of water, do not lie down for 30 minutes after, Suspected Indication (Select all that apply): Cellulitis, Skin and Soft Tissue, Select Type: cellulitis WITH purulent drainage, Coverage (Select all that apply): MSSA: Staph, Methicillin-Susceptible, MRSA: Staph, Methicillin-Resistant Given 05/04/2025 9:23 AM EDT 100 mg Given 05/03/2025 9:31 PM EDT 100 mg Given 05/03/2025 1:01 PM EDT 100 mg dupilumab (Dupixent) injection 300 mg 300 mg, subcutaneous, Once, On Wed05/01/25 at 1545, For 1 dose, Drug Name: Dupixent, Form: syringe, Length of Therapy: 1 day, How soon needed? (normally 72 hrs needed to procure): 0-24 hrs Given 05/01/2025 4:09 PM EDT 300 mg Left Lower Abdomen enoxaparin (Lovenox) syringe 40 mg 40 mg, subcutaneous, Daily, First dose on Wed04/20/25 at 1000, For 99 days Given 05/03/2025 10:14 AM EDT 40 mg Right Lower Abdomen Given 05/02/2025 9:52 AM EDT 40 mg Le ft Upper Abdomen Given 05/01/2025 9:07 AM EDT 40 mg Le ft Lower Abdomen epoprostenol (Veletri) 500 mcg in sodium chloride 0.9 % 100 mL (5 mcg/mL) infusion 4 ng/kg/min 85.1 kg (4.0848 mL/hr, rounded to 4.08 mL/hr), intravenous, Continuous, Starting on Wed04/28/25 at 0845, For 99 days, Use for pre filter CRRT to avoid clotting Use infusion sets with an in-line 0.22 micron filter. Protect from light. Rate/Dose Verify 05/01/2025 12:00 PM EDT 4 ng/kg/min 4.08 mL/hr Rate/Dose Verify 05/01/2025 11:00 AM EDT 4 ng/kg/min 4.08 mL/hr Rate/Dose Verify 05/01/2025 10:00 AM EDT 4 ng/kg/min 4.08 mL/hr fentaNYL (Sublimaze) 50 mcg/mL injection - ADS Override Pull Starting on Wed04/27/25 at 1557, For 1 dose, Created by cabinet override fentaNYL (Sublimaze) injection 50 mcg 50 mcg, intravenous, Once, On Wed04/27/25 at 1800, For 1 dose Given 04/27/2025 4:15 PM EDT 50 mcg furosemide (Lasix) 500 mg 50 mL infusion 40 mg/hr (4 mL/hr), intravenous, Continuous, Starting on Wed04/26/25 at 1100, For 99 days New Bag 04/27/2025 5:44 PM EDT 40 mg/hr 4 mL/hr Rate/Dose Verify 04/27/2025 7:00 AM EDT 40 mg/hr 4 mL/hr New Bag 04/27/2025 5:44 AM EDT 40 mg/hr 4 mL/hr furosemide (Lasix) injection 40 mg 40 mg, intravenous, Every 12 hours, First dose on Wed04/24/25 at 1730, For 99 days, Administer undiluted IV push at a rate no greater than 20 mg/minute. Given 04/25/2025 5:09 AM EDT 40 mg Given 04/24/2025 5:36 PM EDT 40 mg furosemide (Lasix) injection 40 mg 40 mg, intravenous, Once, On Wed04/25/25 at 0930, For 1 dose, Administer undiluted IV push at a rate no greater than 20 mg/minute. Given 04/25/2025 10:0 7 AM EDT 40 mg furosemide (Lasix) injection 40 mg 40 mg, intravenous, Once, On Wed05/02/25 at 0430, For 1 dose, Administer undiluted IV push at a rate no greater than 20 mg/minute. Given 05/02/2025 4:25 AM EDT 40 mg furosemide (Lasix) injection 80 mg 80 mg, intravenous, Every 12 hours, First dose (after last modification) on Wed04/25/25 at 1730, For 196 doses, Administer undiluted IV push at a rate no greater than 20 mg/minute., On hold since Wed04/26/2025 at 1049 until manually unheld Given 04/26/2025 5:09 AM EDT 80 mg Given 04/25/2025 5:37 PM EDT 80 mg glucose chewable tablet 24 g 24 g, oral, Every 15 min PRN, capillary blood glucose < 70 mg/dL and patient alert and eating, Starting on Wed04/27/25 at 0842, For 99 days, - Recheck blood glucose 5 minutes after dextrose administration. - Repeat treatment as ordered until blood glucose is greater than or equal to 80 mg/dL. - Provide a snack/meal within 1 hour after correction of hypoglycemia if not NPO. - If patient NPO or on enteral tube feeds, contact physician for potential additional interventions(s) (i.e. 5% or 10% dextrose IV fluids or tube feeding bolus) guaiFENesin (Mucinex) 12 hr tablet 600 mg 600 mg, oral, 2 times daily PRN, cough, Starting on Wed04/29/25 at 0904, For 99 days, Administer with plenty of fluids to ensure proper action. Do not crush, chew, or split. Given 05/01/2025 9:55 PM EDT 600 mg Given 04/30/2025 8:11 AM EDT 600 mg Given 04/29/2025 11:07 PM EDT 600 mg heparin (porcine) injection 15,000 Units 15,000 Units, intra-catheter, As needed, trialysis catheter packing, Starting on Wed04/27/25 at 1817, For 99 days, Pack both ports of the Trialysis catheter as needed with 1.6 mL or 1.8 mL heparin (5000 units/mL) as indicated on the port Given 05/01/2025 12:55 PM EDT 15,000 Units Given 04/28/2025 10:47 AM EDT 15,000 Units Given 04/27/2025 11:17 PM EDT 15,000 Units heparin (porcine) injection 5,000 Units 5,000 Units, subcutaneous, 2 times daily, First dose on Lila 05/03/25 at 1215, For 99 days Given 05/04/2025 9:26 AM EDT 5,000 Units Left Upper Abdomen Given 05/03/2025 9:31 PM EDT 5,000 Units R ight Lower Abdomen hydrocortisone sodium succinate (Solu-CORTEF) injection 50 mg 50 mg, intravenous, Every 6 hours scheduled, First dose on [facility] 04/26/25 at 1200, For 99 days Given 04/28/2025 6: 41 AM EDT 50 mg Given 04/28/2025 12:06 AM EDT 50 mg Given 04/27/2025 5:45 PM EDT 50 mg hydrocortisone sodium succinate (Solu-CORTEF) injection 50 mg 50 mg, intravenous, Every 12 hours scheduled, First dose (after last modification) on [facility] 04/28/25 at 2200 Given 05/01/2025 9:07 AM EDT 50 mg Given 04/30/2025 9:19 PM EDT 50 mg Given 04/30/2025 8:29 AM EDT 50 mg iohexol (OMNIPaque) 350 mg iodine/mL injection 100 mL 100 mL, intravenous, Once in imaging, Starting on 04/23/25 at 1648, For 1 dose Given 04/23/2025 4:48 PM E DT 100 mL ipratropium-albuteroL (Duo-Neb) 0.5-2.5 mg/3 mL nebulizer solution 3 mL 3 mL, nebulization, Every 6 hours while awake RT, First dose on Wed04/28/25 at 0800, For 99 days Given 05/01/2025 1:44 PM EDT 3 mL Given 05/01/2025 7:58 AM EDT 3 mL Given 04/30/2025 8:10 PM EDT 3 mL ipratropium-albuteroL (Duo-Neb) 0.5-2.5 mg/3 mL nebulizer solution 3 mL 3 mL, nebulization, Every 4 hours PRN, wheezing, Starting on Wed04/28/25 at 0343 Given 04/28/2025 3:46 AM EDT 3 mL ipratropium-albuteroL (Duo-Neb) 0.5-2.5 mg/3 mL nebulizer solution 3 mL 3 mL, nebulization, Every 6 hours PRN, wheezing, Starting on Wed05/01/25 at 1400, For 286 doses lactated Ringer's bolus 500 mL 500 mL, intravenous, at 500 mL/hr, Administer over 1 Hours, Once, On [facility] 04/19/25 at 1345, For 1 dose New Bag 04/19/2025 1:54 PM EDT 500 mL 500 mL/hr magnesium oxide (Mag-Ox) tablet 400 mg 400 mg, oral, Every 8 hours, First dose on Wed04/25/25 at 0445, For 3 doses Given 04/25/2025 9:39 PM EDT 400 mg Given 04/25/2025 3:02 PM EDT 400 mg Given 04/25/2025 5:09 AM EDT 400 mg magnesium sulfate in D5W IVPB 1 g 1 g, intravenous, at 100 mL/hr, Administer over 1 Hours, Once, On 04/23/25 at 1045, For 1 dose New Bag 04/23/2025 10:47 AM EDT 1 g 100 mL/hr magnesium sulfate in D5W IVPB 1 g 1 g, intravenous, at 100 mL/hr, Administer over 1 Hours, Once, On [facility] 04/26/25 at 0515, For 1 dose Rate/Dose Verify 04/26/2025 6:00 AM EDT 100 mL/hr New Bag 04/26/2025 5:08 AM EDT 1 g 100 mL/hr magnesium sulfate in D5W IVPB 1 g 1 g, intravenous, at 100 mL/hr, Administer over 1 Hours, Once, On Wed04/27/25 at 2200, For 1 dose Rate/Dose Verify 04/27/2025 11:00 PM EDT 100 mL/hr New Bag 04/27/2025 10:05 PM EDT 1 g 100 mL/hr magnesium sulfate in D5W IVPB 1 g 1 g, intravenous, at 100 mL/hr, Administer over 1 Hours, Once, On 04/28/25 at 0445, For 1 dose New Bag 04/28/2025 5:00 AM EDT 1 g 100 mL/hr magnesium sulfate in D5W IVPB 1 g 1 g, intravenous, at 100 mL/hr, Administer over 1 Hours, Once, On 04/28/25 at 2115, For 1 dose Rate/Dose Verify 04/28/2025 11:00 PM EDT 100 mL/hr New 04/28/2025 10:04 PM EDT 1 g 100 mL/hr magnesium sulfate in D5W IVPB 1 g 1 g, intravenous, at 100 mL/hr, Administer over 1 Hours, Once, On 04/29/25 at 0445, For 1 dose Rate/Dose Verify 04/29/2025 6:00 AM EDT 100 mL/hr New Bag 04/29/2025 5:04 AM EDT 1 g 100 mL/hr magnesium sulfate in D5W IVPB 1 g 1 g, intravenous, at 100 mL/hr, Administer over 1 Hours, Once, On 04/29/25 at 2045, For 1 dose Rate/Dose Verify 04/29/2025 9:00 PM EDT 100 mL/hr New Bag 04/29/2025 8:59 PM EDT 1 g 100 mL/hr magnesium sulfate in D5W IVPB 1 g 1 g, intravenous, at 100 mL/hr, Administer over 1 Hours, Every 1 hour, First dose on Wed05/03/25 at 0615, For 2 doses New Bag 05/03/2025 8:10 AM EDT 1 g 100 mL/hr New Bag 05/03/2025 6:23 AM EDT 1 g 100 mL/hr magnesium sulfate in water IVPB 2 g 2 g, intravenous, at 50 mL/hr, Administer over 1 Hours, Every 1 hour, First dose on Wed04/30/25 at 2115, For 1 dose, For central line administration only. Rate/Dose Verify 04/30/2025 10:00 PM EDT 50 mL/hr New 04/30/2025 9:19 PM EDT 2 g 50 mL/hr magnesium sulfate in water IVPB 2 g 2 g, intravenous, at 50 mL/hr, Administer over 1 Hours, Every 1 hour, First dose on Wed05/02/25 at 0415, For 1 dose, For central line administration only. New 05/02/2025 4:25 AM EDT 2 g 50 mL/hr melatonin tablet 5 mg 5 mg, oral, Nightly PRN, sleep, Starting on Wed04/26/25 at 0033, For 99 days Given 04/29/2025 9:01 PM EDT 5 mg Given 04/26/2025 8:49 PM EDT 5 mg Given 04/26/2025 12:48 AM EDT 5 mg metOLazone (Zaroxolyn) tablet 10 mg 10 mg, oral, Once, On Wed04/27/25 at 0315, For 1 dose Given 04/27/2025 3:57 AM EDT 10 mg metoprolol succinate XL (Toprol-XL) 24 hr split tablet 12.5 mg 12.5 mg, oral, Daily, First dose on Wed04/23/25 at 1000, For 99 days, Hold for SBP < 90, HR < 60 Given 05/04/2025 9:22 AM EDT 12.5 mg Given 05/03/2025 1:01 PM EDT 12.5 mg Given 04/25/2025 10:04 AM EDT 12.5 mg metoprolol tartrate (Lopressor) injection 2.5 mg 2.5 mg, intravenous, Once, On 04/23/25 at 0315, For 1 dose, Hold if heart rate less than: 60 BPM For IVP: give over 2 minutes. Given 04/23/2025 3:10 AM EDT 2.5 mg milrinone (Primacor) infusion 200 mcg/mL 0.25 mcg/kg/min 81.9 kg (6.1425 mL/hr, rounded to 6.14 mL/hr), intravenous, Continuous, Starting on Wed04/24/25 at 1615, For 99 days, Milrinone for cerebral vasospasms infusion, On hold since Lila 04/26/2025 at 1105 until manually unheld Rate/Dose Verify 04/26/2025 11:00 AM EDT 0.25 mcg/kg/min 6.14 mL/hr Rate/Dose Verify 04/26/2025 10:00 AM EDT 0.25 mcg/kg/min 6 .14 mL/hr Rate/Dose Verify 04/26/2025 9:00 AM EDT 0.25 mcg/kg/min 6. 14 mL/hr mometasone-formoterol (Dulera 200) 200-5 mcg/actuation inhaler 2 puff 2 puff, inhalation, 2 times daily RT, First dose on Wed04/19/25 at 1230, Rinse mouth with water after use to reduce aftertaste and incidence of candidiasis. Do not swallow. Given 05/04/2025 9:26 AM EDT 2 puffs Given 05/03/2025 9:31 PM EDT 2 puffs Given 05/03/2025 10:13 AM EDT 2 puffs naloxone (Narcan) injection 0.4 mg 0.4 mg, intravenous, As needed, opioid reversal, Starting on [facility] 04/19/25 at 1546, For 99 days, Recovery & On Unit, Administer IV Push over 30 seconds as needed for opioid reversal (may give IM or SubQ if no IV access), if O2 saturation is less than 90%, respiratory rate is less than or equal to 8/min, and/or patient has signs/symptoms of opioid-induced respiratory depression. Hold all narcotics and notify MD immediately and give naloxone 0.4 mg every 2 minutes until respiratory rate greater than 12. naloxone (Narcan) injection 0.4 mg 0.4 mg, intramuscular, As needed, opioid reversal, Starting on [facility] 04/19/25 at 1546, For 99 days, Recovery & On Unit, Administer IM needed for opioid reversal (may give IV or SubQ if no IM access), if O2 saturation is less than 90%, respiratory rate is less than or equal to 8/min, and/or patient has signs/symptoms of opioid-induced respiratory depression. Hold all narcotics and notify MD immediately and give naloxone 0.4 mg every 2 minutes until respiratory rate is greater than 12. naloxone (Narcan) injection 0.4 mg 0.4 mg, subcutaneous, As needed, opioid reversal, Starting on [facility] 04/19/25 at 1546, For 99 days, Recovery & On Unit, Administer SubQ as needed for opioid reversal (may give IV or IM if no SubQ access), if O2 saturation is less than 90%, respiratory rate is less than or equal to 8/min, and/or patient has signs/symptoms of opioid-induced respiratory depression. Hold all narcotics and notify MD immediately and give naloxone 0.4 mg every 2 minutes until respiratory rate greater than 12. norepinephrine in sodium chloride 0.9 % (Levophed) 8 mg/250ml infusion 0.01-2 mcg/kg/min 83.5 kg (1.5656-313.125 mL/hr, rounded to 1.57-313.13 mL/hr), intravenous, Continuous, Starting on Wed04/25/25 at 1330, For 99 days, *ADMINISTER THROUGH A CENTRAL LINE* * PROTECT FROM LIGHT *, Initial dose: 0.01 mcg/kg/min, Adjust dose by: Not more than 0.1 mcg/kg/minute every 5 minutes, Target Blood Pressure (mmHg): other, Explanatory comment: 100-130 Rate/Dose Change 04/27/2025 10:00 AM EDT 0.24 mcg/kg/min 37.6 mL/hr Rate/Dose Verify 04/27/2025 7:00 AM EDT 0.26 mcg/kg/min 40 .7 mL/hr New Bag 04/27/2025 6:54 AM EDT 0.26 mcg/kg/min 40.7 mL/ hr norepinephrine in sodium chloride 0.9 % (Levophed) 8 mg/250ml infusion 0.01-2 mcg/kg/min 83.5 kg (1.5656-313.125 mL/hr, rounded to 1.57-313.13 mL/hr), intravenous, Continuous, Starting on Wed04/27/25 at 1015, For 97 days, *ADMINISTER THROUGH A CENTRAL LINE* * PROTECT FROM LIGHT *, Initial dose: 0.01 mcg/kg/min, Adjust dose by: Not more than 0.1 mcg/kg/minute every 5 minutes, Target Blood Pressure (mmHg): MAP 65-75 Rate/Dose Change 04/28/2025 5:03 AM EDT 0.02 mcg/kg/min 3.13 mL/hr Rate/Dose Verify 04/28/2025 5:00 AM EDT 0.03 mcg/kg/min 4. 7 mL/hr Rate/Dose Change 04/28/2025 4:39 AM EDT 0.03 mcg/kg/min 4. 7 mL/hr ondansetron HCl (PF) (Zofran) injection 4 mg 4 mg, intravenous, Every 6 hours PRN, nausea, vomiting, Starting on Wed04/19/25 at 1150, For 99 days, Give IV if patient is unable to take orally. Administer as an IV push over 2 to 5 minutes. Given 04/23/2025 9:16 AM EDT 4 mg ondansetron ODT (Zofran-ODT) disintegrating tablet 4 mg 4 mg, oral, Every 8 hours PRN, nausea, vomiting, Starting on Wed04/19/25 at 1150, For 99 days Given 04/27/2025 12:18 AM EDT 4 mg Given 04/26/2025 11:11 AM EDT 4 mg Given 04/26/2025 12:49 AM EDT 4 mg oxyCODONE (Roxicodone) immediate release split tablet 2.5 mg 2.5 mg, oral, Every 6 hours PRN, moderate pain (4-7 pain score), Starting on Wed05/02/25 at 1958, For 99 days Given 05/04/2025 12:13 AM EDT 2.5 mg Given 05/03/2025 2:26 PM EDT 2.5 mg Given 05/03/2025 8:16 AM EDT 2.5 mg potassium chloride CR (Klor-Con M20) ER tablet 20 mEq 20 mEq, oral, Once, On Wed04/25/25 at 0445, For 1 dose, Serum K 3.5-3.9 Do not crush or chew. Given 04/25/2025 5:09 AM EDT 20 mEq potassium chloride CR (Klor-Con M20) ER tablet 40 mEq 40 mEq, oral, Once, On Wed04/30/25 at 0515, For 1 dose, Do not crush or chew. Given 04/30/2025 5:35 AM EDT 40 mEq potassium chloride IVPB 10 mEq 10 mEq, intravenous, at 100 mL/hr, Administer over 1 Hours, Every 1 hour, First dose on Wed04/30/25 at 2100, For 3 doses, Serum K 3.5-3.9 (total dose 30 mEq over 3 hours) New Bag 04/30/2025 11:41 PM EDT 10 mEq 100 mL/hr Bag 04/30/2025 10:43 PM EDT 10 mEq 100 mL/hr New 04/30/2025 9:19 PM EDT 10 mEq 100 mL/hr potassium chloride IVPB 20 mEq 20 mEq, intravenous, at 50 mL/hr, Administer over 1 Hours, Every 1 hour, First dose on Wed04/25/25 at 1515, For 3 doses, For central line administration only. New Bag 04/25/2025 7:07 PM EDT 20 mEq 50 mL/hr New Bag 04/25/2025 5:01 PM EDT 20 mEq 50 mL/hr New Bag 04/25/2025 3:40 PM EDT 20 mEq 50 mL/hr potassium chloride IVPB 20 mEq 20 mEq, intravenous, at 50 mL/hr, Administer over 1 Hours, Every 1 hour, First dose on Wed05/01/25 at 0500, For 2 doses, For central line administration only. Bag 05/01/2025 5:58 AM EDT 20 mEq 50 mL/hr Bag 05/01/2025 4:57 AM EDT 20 mEq 50 mL/hr potassium chloride IVPB 20 mEq 20 mEq, intravenous, at 50 mL/hr, Administer over 1 Hours, Every 1 hour, First dose on Wed05/02/25 at 0415, For 4 doses, For central line administration only. 05/02/2025 8:50 AM EDT 20 mEq 50 mL/hr New Bag 05/02/2025 7:55 AM EDT 20 mEq 50 mL/hr New Bag 05/02/2025 6:38 AM EDT 20 mEq 50 mL/hr sennosides-docusate sodium (Mishel-Colace) 8.6-50 mg per tablet 1 tablet 1 tablet, oral, 2 times daily, First dose (after last modification) on Wed04/28/25 at 1345, On hold since Wed05/01/2025 at 0728 until manually unheld Given 04/29/2025 9:01 PM EDT 1 tablet Given 04/29/2025 10:46 AM EDT 1 tablet Given 04/28/2025 10:51 PM EDT 1 tablet simethicone (Mylicon) chewable tablet 80 mg 80 mg, oral, Every 6 hours PRN, flatulence, Starting on Wed04/27/25 at 0850, For 99 days Given 04/28/2025 10: 50 PM EDT 80 mg Given 04/28/2025 11:37 AM EDT 80 mg Given 04/28/2025 3:05 AM EDT 80 mg sod phos di, mono-K phos mono (K Phos Neutral) tablet 2 tablet 2 tablet (500 mg), oral, Every 4 hours, First dose on Wed04/30/25 at 0500, For 4 doses, Each tablet contains 250 mg phosphorus, 298 mg sodium, 1.1 mEq potassium. Given 04/30/2025 6:06 PM EDT 2 tablets Given 04/30/2025 12:59 PM EDT 2 tablets Given 04/30/2025 8:10 AM EDT 2 tablets sod phos di, mono-K phos mono (K Phos Neutral) tablet 2 tablet 2 tablet (500 mg), oral, Every 4 hours, First dose on Wed04/30/25 at 2100, For 4 doses, Each tablet contains 250 mg phosphorus, 298 mg sodium, 1.1 mEq potassium. Given 05/01/2025 8:26 AM EDT 2 tablets Given 05/01/2025 4:05 AM EDT 2 tablets Given 05/01/2025 12:50 AM EDT 2 tablets sodium bicarbonate 150 mEq in sterile water 1,000 mL infusion 200 mL/hr, intravenous, Continuous, Starting on Wed04/28/25 at 1100, For 99 days, For pre filter CRRT use Rate/Dose Verify 05/01/2025 12:00 PM EDT 200 mL/hr 200 mL/hr Rate/Dose Verify 05/01/2025 11:00 AM EDT 200 mL/hr 200 mL /hr Rate/Dose Verify 05/01/2025 10:00 AM EDT 200 mL/hr 200 mL /hr sodium bicarbonate 75 mEq in sodium chloride 0.45 % 1,000 mL infusion 200 mL/hr, hemodialysis, Continuous, Starting on Wed04/27/25 at 1830, For 99 days, PRE-FILTER Restarted 04/28/2025 11:20 AM EDT 200 mL/hr 200 mL/hr Rate/Dose Verify 04/28/2025 6:00 AM EDT 200 mL/hr 200 mL/ hr Rate/Dose Verify 04/28/2025 5:00 AM EDT 200 mL/hr 200 mL/ hr sodium bicarbonate tablet 1,300 mg 1,300 mg, oral, 2 times daily, First dose on Wed04/27/25 at 1045, For 99 days Given 04/28/2025 10:50 PM EDT 1,300 mg Given 04/28/2025 10:03 AM EDT 1,300 mg Given 04/27/2025 10:04 PM EDT 1,300 mg sodium chloride ([place]) 0.65 % nasal spray 1 spray 1 spray, Each Nostril, As needed, congestion, Starting on Wed04/29/25 at 1349, For 99 days sodium chloride 0.9 % bolus 1,000 mL 1,000 mL, intravenous, at 1,000 mL/hr, Administer over 1 Hours, Once, On Wed04/27/25 at 1830, For 1 dose, Prime circuit Rate/Dose Verify 04/27/2025 9:00 PM EDT 1000 mL/hr New Bag 04/27/2025 8:27 PM EDT 1,000 mL 1000 mL/hr sodium chloride 0.9 % bolus 500 mL 500 mL, intravenous, at 500 mL/hr, Administer over 1 Hours, Once, On Wed04/20/25 at 0830, For 1 dose New Bag 04/20/2025 8:36 AM EDT 500 mL 500 mL/hr sodium chloride 0.9 % bolus 500 mL 500 mL, intravenous, at 500 mL/hr, Administer over 1 Hours, Once, On Wed04/20/25 at 1000, For 1 dose New Bag 04/20/2025 10:30 AM EDT 500 mL 500 mL/hr sodium chloride 0.9 % infusion 75 mL/hr, intravenous, Continuous, Starting on Wed04/23/25 at 1530, For 6 hours New Bag 04/23/2025 3:32 PM EDT 75 mL/hr 75 mL/hr sodium phosphates 22.5 mmol in dextrose 5 % 250 mL IVPB 22.5 mmol, intravenous, at 41.7 mL/hr, Administer over 6 Hours, Once, On Wed04/29/25 at 0915, For 1 dose, Administer over 6 hours., Phosphate replacement indication: Complete GI rest/malabsorption syndrome New Bag 04/29/2025 10:37 AM EDT 22.5 mmol 41.7 mL/hr spironolactone (Aldactone) tablet 25 mg 25 mg, oral, Daily, First dose on [facility]ila 04/19/25 at 1230, For 99 days Given 05/04/2025 9:23 AM EDT 25 mg Given 05/03/2025 10:14 AM EDT 25 mg Given 05/02/2025 9:51 AM EDT 25 mg vasopressin 0.2 unit/mL infusion 0.04 Units/min (12 mL/hr), intravenous, Continuous, Starting on Wed04/27/25 at 1000, For 99 days, For central line administration only. New Bag 04/28/2025 3:32 AM EDT 0.04 Units/min 12 mL/hr Rate/Dose Verify 04/28/2025 3:00 AM EDT 0.04 Units/min 12 mL/hr Rate/Dose Verify 04/28/2025 2:00 AM EDT 0.04 Units/min 12 mL/hr documented in this encounter Active and Recently Administered Medications Times are shown in EDT. Scheduled Medication Order 05/02/2025 05/03/2025 05/04/2025 allopurinol (Zyloprim) tablet 300 mg 300 mg, oral, Daily, First dose on [facility] 04/19/25 at 1230, For 99 days 0950 (Given - Provider: Little Hector RN) 1014 (Given - Provider: Daisy Dior RN) 0923 (Given - Provider: Daisy Dior, RN) aspirin chewable tablet 81 mg 81 mg, oral, Daily with breakfast, First dose on Wed04/20/25 at 0800, For 99 days 0850 (Given - Provider: Little Hector RN) 0816 (Given - Provider: Daisy Dior, SAL) 0923 (Given - Provider: Daisy Dior, RN) atorvastatin (Lipitor) tablet 40 mg 40 mg, oral, Nightly, First dose on Wed04/19/25 at 2200, For 99 days 2125 (Given - Provider: Kannan Newell RN) 2130 (Given - Provider: Myesha Schultz RN) clopidogrel (Plavix) tablet 75 mg 75 mg, oral, Daily, First dose on Wed04/19/25 at 1230, For 99 days 0950 (Given - Provider: Little Hector RN) 1014 (Given - Provider: Daisy Dior, SAL) 0923 (Given - Provider: Daisy Dior, RN) colchicine tablet 0.6 mg 0.6 mg, oral, 2 times daily, First dose on Wed04/19/25 at 2200, For 99 days, On hold since Wed05/03/2025 at 0836 until manually unheld 0952 (Given - Provider: Little Hector RN)2125 (Given - Provider: Kannan Newell RN) 0836 (Held by provider - Provider: Brenden Vivar MD - Reason: Change in vital signs)1000 (Dose Auto Held - Provider: Brenden Vivar MD)2200 (Dose Auto Held - Provider: Brenden Vivar MD) 1000 (Dose Auto Held - Provider: Brenden Vivar MD)1833 (Unheld by provider - Provider: Automatic Discharge Provider) dapagliflozin propanediol (Farxiga) tablet 10 mg 10 mg, oral, Once Daily, First dose on Wed04/19/25 at 1230, For 99 days 0850 (Given - Provider: Little Hector RN) 1014 (Given - Provider: Daisy Dior, SAL) 0923 (Given - Provider: Daisy Dior, SAL) doxycycline (Vibramycin) capsule 100 mg 100 mg, oral, 2 times daily, First dose on Wed05/03/25 at 1100, For 7 days, Take with at least 8 ounces (large glass) of water, do not lie down for 30 minutes after, Suspected Indication (Select all that apply): Cellulitis, Skin and Soft Tissue, Select Type: cellulitis WITH purulent drainage, Coverage (Select all that apply): MSSA: Staph, Methicillin-Susceptible, MRSA: Staph, Methicillin-Resistant 1301 (Given - Provider: Daisy Dior, RN)2130 (Given - Provider: Myesha Schultz, RN) 09 (Given - Provider: Daisy Dior, RN) enoxaparin (Lovenox) syringe 40 mg (CANCELED) 40 mg, subcutaneous, Daily, First dose on Wed04/20/25 at 1000, For 99 days 0952 (Given - Provider: Little Hector RN) 1014 (Given - Provider: Daisy Dior, SAL) furosemide (Lasix) injection 40 mg (COMPLETED) 40 mg, intravenous, Once, On Wed05/02/25 at 0430, For 1 dose, Administer undiluted IV push at a rate no greater than 20 mg/minute. 0425 (Given - Provider: Linsey Garcia RN) furosemide (Lasix) injection 80 mg 80 mg, intravenous, Every 12 hours, First dose (after last modification) on Wed04/25/25 at 1730, For 196 doses, Administer undiluted IV push at a rate no greater than 20 mg/minute., On hold since Wed04/26/2025 at 1049 until manually unheld 0530 (Dose Auto Held - Provider: Christiano Conklin MD)1730 (Dose Auto Held - Provider: Christiano Conklin MD) 0530 (Dose Auto Held - Provider: Christiano Conklin MD)1730 (Dose Auto Held - Provider: Christiano Conklin MD) 0530 (Dose Auto Held - Provider: Christiano Conklin MD)1833 (Unheld by provider - Provider: Automatic Discharge Provider) heparin (porcine) injection 5,000 Units 5,000 Units, subcutaneous, 2 times daily, First dose on Wed05/03/25 at 1215, For 99 days 1303 (Not Given - Provider: Daisy Dior, SAL - Reason: See Provider Order - Comment: pt received lovenox this am;see mar; per pharmacist Nicole worthington to hold this dose and pt will receive next schedled)2130 (Given - Provider: Myesha Schultz RN) 0926 (Given - Provider: Daisy Dior, SAL) magnesium sulfate in D5W IVPB 1 g (COMPLETED) 1 g, intravenous, at 100 mL/hr, Administer over 1 Hours, Every 1 hour, First dose on Wed05/03/25 at 0615, For 2 doses 0623 (New Bag - Provider: Kannan Newell, SAL)0714 (Stopped - Provider: Daisy Dior, RN)0810 (New Bag - Provider: Daisy Dior, SAL)0910 (Stopped - Provider: Daisy Dior RN) magnesium sulfate in water IVPB 2 g (COMPLETED) 2 g, intravenous, at 50 mL/hr, Administer over 1 Hours, Every 1 hour, First dose on Wed05/02/25 at 0415, For 1 dose, For central line administration only. 0425 (New Bag - Provider: Linsey Garcia RN)0525 (Stopped - Provider: Linsey Garcia RN) metoprolol succinate XL (Toprol-XL) 24 hr split tablet 12.5 mg 12.5 mg, oral, Daily, First dose on Wed04/23/25 at 1000, For 99 days, Hold for SBP < 90, HR < 60 1000 (Dose Auto Held - Provider: Brenden Vivar MD) 1000 (Dose Auto Held - Provider: Brenden Vivar MD)1233 (Unheld by provider - Provider: Benedict Pascual MD)1301 (Given - Provider: Daisy Dior RN) 0922 (Given - Provider: Daisy Dior RN) mometasone-formoterol (Dulera 200) 200-5 mcg/actuation inhaler 2 puff 2 puff, inhalation, 2 times daily RT, First dose on Wed04/19/25 at 1230, Rinse mouth with water after use to reduce aftertaste and incidence of candidiasis. Do not swallow. 0823 (Given - Provider: Cheryl Way)2030 (Given - Provider: Kannan Newell, SAL) 101 (Given - Provider: Daisy Dior RN)213 (Given - Provider: Myesha Schultz RN) 09 (Given - Provider: Daisy Dior, SAL) potassium chloride IVPB 20 mEq (COMPLETED) 20 mEq, intravenous, at 50 mL/hr, Administer over 1 Hours, Every 1 hour, First dose on Wed05/02/25 at 0415, For 4 doses, For central line administration only. 0431 (New Bag - Provider: Linsey Garcia RN)0514 (Stopped - Provider: Linsey Garcia RN)0638 (New Bag - Provider: Linsey Garcia RN)0714 (Stopped - Provider: Little Hector RN)0755 (New Bag - Provider: Little Hector RN)0814 (Stopped - Provider: Little Hector RN)0850 (New Bag - Provider: Little Hector RN)0950 (Stopped - Provider: Little Hector RN) sennosides-docusate sodium (Mishel-Colace) 8.6-50 mg per tablet 1 tablet 1 tablet, oral, 2 times daily, First dose (after last modification) on 04/28/25 at 1345, On hold since Wed05/01/2025 at 0728 until manually unheld 1000 (Dose Auto Held - Provider: Hakan Luz MD)2200 (Dose Auto Held - Provider: Hakan Luz MD) 1000 (Dose Auto Held - Provider: Hakan Luz MD)2200 (Dose Auto Held - Provider: Hakan Luz MD) 1000 (Dose Auto Held - Provider: Hakan Luz MD)1833 (Unheld by provider - Provider: Automatic Discharge Provider) spironolactone (Aldactone) tablet 25 mg 25 mg, oral, Daily, First dose on Lila 04/19/25 at 1230, For 99 days 0951 (Given - Provider: Little Hector RN) 1014 (Given - Provider: Daisy Dior RN) 0923 (Given - Provider: Daisy Dior RN) PRN Medication Order 05/02/2025 05/03/2025 05/04/2025 acetaminophen (Tylenol) tablet 650 mg 650 mg, oral, Every 6 hours PRN, mild pain (1-3 pain score), headaches, fever greater than or equal to 38 degrees Celsius, (1-3), Starting on Lila 04/19/25 at 1150, For 99 days 0036 (Given - Provider: Linsey Garcia RN)0638 (Given - Provider: Linsey Garcia RN)1225 (Given - Provider: Little Hector RN)1945 (Given - Provider: Vero Mcintosh SAL) 0250 (Given - Provider: Kannan Newell, RN)2136 (Given - Provider: Myesha Schultz, RN) 1545 (Given - Provider: Daisy Dior, SAL) albuterol 90 mcg/actuation inhaler 1 puff 1 puff, inhalation, 2 times daily PRN, wheezing, shortness of breath, Starting on Lila 04/19/25 at 1217 alteplase (Cathflo Activase) injection 2 mg 2 mg, intra-catheter, As needed, line care, Starting on Wed04/27/25 at 2040, For 99 days, For occluded catheter ports. Instill 2 mg (2 mL) into each port, and retain for 0.5 - 2 hours. May repeat if catheter remains occluded. Dilute each 2 mg vial with 2.2 mL sterile water to give 1 mg/mL final concentration. Swirl gently to mix; do not shake. BUD: 8 hours at room temp. dextrose 50 % in water (D50W) syringe 25 g(Linked Group 1) 25 g, intravenous, Every 15 min PRN, capillary blood glucose < 70 mg/dL and patient unable to take oral and has IV access, Starting on Wed04/27/25 at 0842, For 99 days, - Recheck blood glucose 5 minutes after dextrose administration. - Repeat treatment as ordered until blood glucose is greater than or equal to 80 mg/dL. - Provide a snack/meal within 1 hour after correction of hypoglycemia if not NPO. - If patient NPO or on enteral tube feeds, contact physician for potential additional interventions(s) (i.e. 5% or 10% dextrose IV fluids or tube feeding bolus) glucose chewable tablet 24 g(Linked Group 1) 24 g, oral, Every 15 min PRN, capillary blood glucose < 70 mg/dL and patient alert and eating, Starting on Wed04/27/25 at 0842, For 99 days, - Recheck blood glucose 5 minutes after dextrose administration. - Repeat treatment as ordered until blood glucose is greater than or equal to 80 mg/dL. - Provide a snack/meal within 1 hour after correction of hypoglycemia if not NPO. - If patient NPO or on enteral tube feeds, contact physician for potential additional interventions(s) (i.e. 5% or 10% dextrose IV fluids or tube feeding bolus) guaiFENesin (Mucinex) 12 hr tablet 600 mg 600 mg, oral, 2 times daily PRN, cough, Starting on Wed04/29/25 at 0904, For 99 days, Administer with plenty of fluids to ensure proper action. Do not crush, chew, or split. heparin (porcine) injection 15,000 Units 15,000 Units, intra-catheter, As needed, trialysis catheter packing, Starting on Wed04/27/25 at 1817, For 99 days, Pack both ports of the Trialysis catheter as needed with 1.6 mL or 1.8 mL heparin (5000 units/mL) as indicated on the port ipratropium-albuteroL (Duo-Neb) 0.5-2.5 mg/3 mL nebulizer solution 3 mL 3 mL, nebulization, Every 6 hours PRN, wheezing, Starting on Wed05/01/25 at 1400, For 286 doses melatonin tablet 5 mg 5 mg, oral, Nightly PRN, sleep, Starting on Wed04/26/25 at 0033, For 99 days naloxone (Narcan) injection 0.4 mg(Linked Group 2) 0.4 mg, intravenous, As needed, opioid reversal, Starting on Lila 04/19/25 at 1546, For 99 days, Recovery & On Unit, Administer IV Push over 30 seconds as needed for opioid reversal (may give IM or SubQ if no IV access), if O2 saturation is less than 90%, respiratory rate is less than or equal to 8/min, and/or patient has signs/symptoms of opioid-induced respiratory depression. Hold all narcotics and notify MD immediately and give naloxone 0.4 mg every 2 minutes until respiratory rate greater than 12. naloxone (Narcan) injection 0.4 mg(Linked Group 2) 0.4 mg, intramuscular, As needed, opioid reversal, Starting on Lila 04/19/25 at 1546, For 99 days, Recovery & On Unit, Administer IM needed for opioid reversal (may give IV or SubQ if no IM access), if O2 saturation is less than 90%, respiratory rate is less than or equal to 8/min, and/or patient has signs/symptoms of opioid-induced respiratory depression. Hold all narcotics and notify MD immediately and give naloxone 0.4 mg every 2 minutes until respiratory rate is greater than 12. naloxone (Narcan) injection 0.4 mg(Linked Group 2) 0.4 mg, subcutaneous, As needed, opioid reversal, Starting on Lila 04/19/25 at 1546, For 99 days, Recovery & On Unit, Administer SubQ as needed for opioid reversal (may give IV or IM if no SubQ access), if O2 saturation is less than 90%, respiratory rate is less than or equal to 8/min, and/or patient has signs/symptoms of opioid-induced respiratory depression. Hold all narcotics and notify MD immediately and give naloxone 0.4 mg every 2 minutes until respiratory rate greater than 12. ondansetron HCl (PF) (Zofran) injection 4 mg(Linked Group 3) 4 mg, intravenous, Every 6 hours PRN, nausea, vomiting, Starting on Lila 04/19/25 at 1150, For 99 days, Give IV if patient is unable to take orally. Administer as an IV push over 2 to 5 minutes. ondansetron ODT (Zofran-ODT) disintegrating tablet 4 mg(Linked Group 3) 4 mg, oral, Every 8 hours PRN, nausea, vomiting, Starting on Lila 04/19/25 at 1150, For 99 days oxyCODONE (Roxicodone) immediate release split tablet 2.5 mg 2.5 mg, oral, Every 6 hours PRN, moderate pain (4-7 pain score), Starting on Wed05/02/25 at 1958, For 99 days 2246 (Given - Provider: Kannan Newell RN) 0816 (Given - Provider: Daisy Dior, SAL)1426 (Given - Provider: Daisy Dior RN) 0013 (Given - Provider: Myesha Schultz RN) simethicone (Mylicon) chewable tablet 80 mg 80 mg, oral, Every 6 hours PRN, flatulence, Starting on Wed04/27/25 at 0850, For 99 days sodium chloride ([place]) 0.65 % nasal spray 1 spray 1 spray, Each Nostril, As needed, congestion, Starting on Wed04/29/25 at 1349, For 99 days Linked Groups Order Group 1: glucose chewable tablet 24 gJump to med 24 g, oral, Every 15 min PRN, capillary blood glucose < 70 mg/dL and patient alert and eating, Starting on Wed04/27/25 at 0842, For 99 days, - Recheck blood glucose 5 minutes after dextrose administration. - Repeat treatment as ordered until blood glucose is greater than or equal to 80 mg/dL. - Provide a snack/meal within 1 hour after correction of hypoglycemia if not NPO. - If patient NPO or on enteral tube feeds, contact physician for potential additional interventions(s) (i.e. 5% or 10% dextrose IV fluids or tube feeding bolus) Or dextrose 50 % in water (D50W) syringe 25 gJump to med 25 g, intravenous, Every 15 min PRN, capillary blood glucose < 70 mg/dL and patient unable to take oral and has IV access, Starting on Wed04/27/25 at 0842, For 99 days, - Recheck blood glucose 5 minutes after dextrose administration. - Repeat treatment as ordered until blood glucose is greater than or equal to 80 mg/dL. - Provide a snack/meal within 1 hour after correction of hypoglycemia if not NPO. - If patient NPO or on enteral tube feeds, contact physician for potential additional interventions(s) (i.e. 5% or 10% dextrose IV fluids or tube feeding bolus) Group 2: naloxone (Narcan) injection 0.4 mgJump to med 0.4 mg, intravenous, As needed, opioid reversal, Starting on Lila 04/19/25 at 1546, For 99 days, Recovery & On Unit, Administer IV Push over 30 seconds as needed for opioid reversal (may give IM or SubQ if no IV access), if O2 saturation is less than 90%, respiratory rate is less than or equal to 8/min, and/or patient has signs/symptoms of opioid-induced respiratory depression. Hold all narcotics and notify MD immediately and give naloxone 0.4 mg every 2 minutes until respiratory rate greater than 12. Or naloxone (Narcan) injection 0.4 mgJump to med 0.4 mg, intramuscular, As needed, opioid reversal, Starting on Lila 04/19/25 at 1546, For 99 days, Recovery & On Unit, Administer IM needed for opioid reversal (may give IV or SubQ if no IM access), if O2 saturation is less than 90%, respiratory rate is less than or equal to 8/min, and/or patient has signs/symptoms of opioid-induced respiratory depression. Hold all narcotics and notify MD immediately and give naloxone 0.4 mg every 2 minutes until respiratory rate is greater than 12. Or naloxone (Narcan) injection 0.4 mgJump to med 0.4 mg, subcutaneous, As needed, opioid reversal, Starting on Lila 04/19/25 at 1546, For 99 days, Recovery & On Unit, Administer SubQ as needed for opioid reversal (may give IV or IM if no SubQ access), if O2 saturation is less than 90%, respiratory rate is less than or equal to 8/min, and/or patient has signs/symptoms of opioid- induced respiratory depression. Hold all narcotics and notify MD immediately and give naloxone 0.4 mg every 2 minutes until respiratory rate greater than 12. Group 3: ondansetron ODT (Zofran-ODT) disintegrating tablet 4 mgJump to med 4 mg, oral, Every 8 hours PRN, nausea, vomiting, Starting on Lila 04/19/25 at 1150, For 99 days Or ondansetron HCl (PF) (Zofran) injection 4 mgJump to med 4 mg, intravenous, Every 6 hours PRN, nausea, vomiting, Starting on Lila 04/19/25 at 1150, For 99 days, Give IV if patient is unable to take orally. Administer as an IV push over 2 to 5 minutes. documented in this encounter Additional Health Concerns Infection Onset Date Last Indicated Resolved Time C. difficile Rule-Out Comment:Test discontinued 04/22/2025 04/22/2025 04/24/2025 7:3 1 AM EDT documented as of this encounter Care Teams Strategic Marketing Specialist Relationship Specialty Start Date End Date Ruyd King MD [address] [place] [address] PCP - General 07/03/22 documented as of this encounter
--- OUTSIDE RECORDS SUMMARY | 2025-04-24 15:00 | XMS_ITS | Encounter Summary ---
Author Organization [facility] Address [address] [place] [address] Care Team Providers Care Heat Transfer Technician Name Role Phone Rudy King MD Primary Care Provider [phone] Reason for Visit * Auth/Cert (Routine) Specialty Diagnoses / Procedures Referred By Candice t Referred To Contact Diagnoses CP Procedures NO CODED SERVICE Benedict Pascual MD [address] [place] [address] Phone: tel: fax: [facility] [address] [place] [address] Phone: tel: fax: Referral ID Status Reason Start Date Expiration Date Visits Re quested Visits Authorized [id number] 1 Encounter Details Date Type Department Care Team (Late st Contact Info) Description 04/24/2025 3:00 PM EDT - 04/24/2025 4:00 PM EDT Surgery [facility] [address] [place] [address] Hay William MD [address] [facility] [address] [facility] [place] [id number] Right heart cath [62319 (CPT )] Social History Tobacco Use Types Packs/Day Years Used Date Smoking Tobacco: Former Cigarettes Smokeless Tobacco: Never Alcohol Use Standard Drinks/Week Comments Yes 14 (1 standard drink = 0.6 oz pu re alcohol) occasional C Utilities Answer Date Recorded In the past 12 months has [employer], gas, oil, or water [employer] threatened to shut off services in your [...] any time in the past 12 m [facility], were you homeless or living in a residential (including now)? No 04/19/2025 Hunger Vital Sign [...] Sign Reading Time Taken Comments Blood Pressure 91/76 04/24/2025 3:44 PM EDT Pulse 88 04/24/2025 3:44 PM EDT Temperature 36.1 C (97 F) 04/24/2025 12:11 PM EDT Respiratory Rate 20 04/24/2025 3:44 PM EDT Oxygen Saturation 96% 04/24/2025 3:44 PM EDT Inhaled Oxygen Concentration - - Weight 81.9 kg (180 lb 9.6 oz) 04/24/2025 4:03 A M EDT Height 172.7 cm (5' 8 ) 04/19/2025 10:49 AM EDT Body Mass Index 28.45 04/19/2025 10:49 AM EDT documented in this encounter Functional Status * Question Answer Date of Assessment Author BP 91/76 04/24/2025 3:44 PM EDT Marco Martinez RN Pulse 88 04/24/2025 3:44 PM EDT Marco Martinez RN * Question Answer Date of Assessment Author Heart Rate Source Monitor 04/24/2025 12:11 PM EDT Kimberly Syed RN Patient Position Lying 04/24/2025 12:11 PM EDT Kimberly Syed RN * Sherman Fall Risk Question Answer Date of Assessment Author History of Falling, Immediat e or Within 3 Months 25 04/24/2025 8:04 AM EDT Kimberly Syed RN Secondary Diagnosis 15 04/24/2025 8:04 AM ED Kimberly Tesfaye RN Ambulatory Aid 0 04/24/2025 8:04 AM EDT Kimberly Varghese RN Intravenous Therapy/Heparin Lock 20 04/24/20 25 8:04 AM EDT Kimberly Syed RN Gait/Transferring 0 04/24/2025 8:04 AM EDT Kimberly Syed RN Mental Status 0 04/24/2025 8:04 AM EDT Kimberly Boone RN Sherman Fall Risk Score 60 04/24/2025 8:04 AM EDT Kimberly Syed RN * Christiano Scale Question Answer Date of Assessment Author Christiano No Risk Interventions Continue to assess patient according to level of care 04/24/2025 8:04 AM EDT Kimberly Syed RN Sensory Perceptions 4 04/24/2025 8:04 AM ED T Kimberly Syed RN Moisture 4 04/24/2025 8:04 AM EDT Kimberly Arango RN Activity 3 04/24/2025 8:04 AM EDT Kimberly Arango RN Mobility 3 04/24/2025 8:04 AM EDT Kimberly Arango RN Nutrition 3 04/24/2025 8:04 AM EDT Kimberly Arango RN Friction and Shear 3 04/24/2025 8:04 AM EDT Kimberly Syed RN Christiano Scale Score 20 04/24/2025 8:04 AM EDT Kimberly Syed RN * [place] Fall Risk Interventions Question Answer Date of Assessment Author [place] Fall Risk Interventions Complete 025 8:04 AM EDT Kimberly Syed RN * Pain Assessment Timer Question Answer Date of Assessment Author Restart Pain Assessment Timer Yes 04/24/2025 12:11 PM EDT Kimberly Syed RN * Sepsis Model Scores Question Answer Date of Assessment Author Early Detection of Sepsis Score 2.13 3:46 PM EDT Jennifer Pickens Early Detection of Sepsis Score 11.8 3:46 PM EDT Jennifer Pickens * Pain Assessment Question Answer Date of Assessment Author Pain Location Elbow 04/23/2025 4:54 AM EDT Reginald Staples RN Pain Orientation Left 04/23/2025 4:54 AM EDT Reginald Staples RN Pain Interventions Emotional support;Environmental changes;Relaxation technique;Repositioned 04/24/2025 8:04 AM EDT Kimberly Syed RN Pain Descriptors Dull 04/23/2025 4:54 AM Reginald Poon RN Pain Onset Gradual 04/20/2025 12:02 AM EDT Radha Marsh RN Pain Frequency Intermittent 04/20/2025 12:02 AM EDT Radha Marsh RN Patient's Stated Pain Goal No pain 04/24/2025 8:04 AM EDT Kimberly Syed RN Pain Type Acute pain 04/23/2025 4:54 AM GWENT Reginald Staples RN Clinical Progression Not changed 04/24/2025 8:04 AM EDT Kimberly Syed RN Pain Score 0 - No pain 04/24/2025 8:04 AM EDT Kimberly Syed RN Pain Assessment No/denies pain 04/24/2025 12:11 PM EDT Kimberly Syed RN * Deterioration Index Score Question Answer Date of Assessment Author Deterioration Index Score 32.28 04/24/2025 3:46 PM EDT Chronicles, Batchq * Question Answer Date of Assessment Author BP 91/76 04/24/2025 3:44 PM EDT Marco Martinez RN Pulse 88 04/24/2025 3:44 PM EDT Marco Martinez RN Resp 20 04/24/2025 3:44 PM EDT Marco Martinez RN SpO2 96 04/24/2025 3:44 PM EDT Marco Martinez RN * Head, Ears, Eyes, Nose, and Throat (HEENT) Question Answer Date of Assessment Author Head, Ears, Eyes, Nose, and Throat (WDL) X 04/24/2025 8:04 AM Kimberly Brown RN R Eye Mildly impaired vision 04/24/2025 8:04 AM Kimberly Brown RN L Eye Mildly impaired vision 04/24/2025 8:04 AM EDKimberly Tesfaye RN R Ear Mildly impaired hearing 04/24/2025 8:04 AM Kimberly Brown RN L Ear Mildly impaired hearing 04/24/2025 8:04 AM Kimberly Brown RN * Question Answer Date of Assessment Author MAP (mmHg) 75 04/24/2025 12:11 PM EDT Kimberly Boone RN * Short Portable Mental Status Question Answer Date of Assessment Author What are the date, month, year? 0 8:04 AM Kimberly Brown RN What is the day of the week? 0 04/24/2025 8 :04 AM Kimberly Brown RN What is the name of this place? 0 8:04 AM Kimberly Brown RN What is your phone number? 0 04/24/2025 8:0 4 AM Kimberly Brown RN How old are you? 0 04/24/2025 8:04 AM Kimberly Garcia RN When were you born? 0 04/24/2025 8:04 AM Kimberly Cao RN Who is the current president? 0 04/24/2025 8:04 AM Kimberly Brown RN Who was the president before him? 0 025 8:04 AM Kimberly Brown RN What was your mother's maiden name? 0 04/24 8:04 AM EDT Kimberly Syed RN Can you count backward from 20 by 3s? 0 01/2025 8:04 AM GWENT Kimberly Syed RN Short Portable Mental Score 0 04/24/2025 8: 04 AM EDT Kimberly Syed RN * Fall Risk Level Question Answer Date of Assessment Author Mobility zone Low (Green Zone) 04/24/2025 8:04 AM EDT Kimberly Syed RN Sherman fall risk zone Moderate (Yellow Zone) 04/24/2025 8:04 AM EDT Kimberly Syed RN Mental status questionaire zone Low (Green Zone) 04/24/2025 8:04 AM EDT Kimberly Syed RN * Question Answer Date of Assessment Author Pulse rate from Plethysmogram (bpm) 102 04/24 3:29 AM EDT Reginald Staples RN * Skin Assessment Sign off Question Answer Date of Assessment Author Dual Sign-off - Admission/Transfer Yamila Rasmussen RN 04/19/2025 10:49 AM EDT Yamila Rasmussen RN Any new wounds identified on admission/transfer? No 04/19/2025 10:49 AM Yamila Pinon RN Provider notified of new wound No 04/19/2025 10:49 AM Yamila Pinon RN * Question Answer Date of Assessment Author Temp 97 04/24/2025 12:11 PM EDT Kimberly Boone RN Temp src Temporal 04/24/2025 12:11 PM EDT Kimberly Boone RN Heart Rate Source Monitor 04/24/2025 12:11 PM EDT Kimberly Syed RN BP Location Left arm 04/24/2025 12:11 PM EDT Kimberly Boone RN BP Method Automatic 04/24/2025 12:11 PM EDT Kimberly Boone RN Cardiac Rhythm A-Fib 04/24/2025 12:11 PM EDT Kimberly Manzano RN Ectopy Premature ventricula r contractions 04/24/2025 12:11 PM EDT Kimberly Syed RN Patient Position Lying 04/24/2025 12:11 PM EDT Kimberly Syed RN * Question Answer Date of Assessment Author Level of Consciousness Alert 8:05 AM Yamila Pinon RN Orientation Level Oriented X4 04/20/2025 8:0 5 AM Yamila Pinon RN Cognition Appropriate judgement;Appropriate safety awareness;Follows commands 04/20/2025 8:05 AM Yamila Pinon RN Speech Clear 04/20/2025 8:05 AM Yamila Pinon RN R Hand Grasp Moderate 04/20/2025 8:05 AM Yamila Pinon RN L Hand Grasp Moderate 04/20/2025 8:05 AM EDYamila Valdovinos RN R Foot Dorsiflexion Moderate 04/20/2025 8 :05 AM Yamila Pinon RN L Foot Dorsiflexion Moderate 04/20/2025 8 :05 AM Yamila Pinon RN R Foot Plantar Flexion Moderate 8:05 AM Yamila Pinon RN L Foot Plantar Flexion Moderate 8:05 AM Yamila Pinon RN Neuro Symptoms None 04/20/2025 8:05 AM Yamila Pinon RN Hand Grasp/Motor Function/Sensation Assessment Grasp;Dorsiflexion;Juliana ntar flexion 04/20/2025 8:05 AM Yamila Pinon RN Facial Symmetry Symmetrical 04/20/2025 8:05 AM Yamila Pinon RN * Question Answer Date of Assessment Author Ectopy Frequency Frequent 04/24/2025 8:04 AM EDT Kimberly De Paz RN Cardiac Regularity Regular 04/23/2025 7:54 PM EDT Reginald Staples RN Computer Applications Developer Status On 04/24/2025 8:04 AM GWENT Kimberly Syed RN Telemetry Box Number HW 04/23/2025 7:54 PM E Reginald Decker RN Jugular Venous Distention (JVD) No 7:54 PM EDT Reginald Staples RN Cardiac Symptoms None 04/23/2025 9:10 AM EDT Kelly Dominguez RN Heart Sounds S1, S2 04/23/2025 7:54 PM EDT Reginald Staples RN * Question Answer Date of Assessment Author Pacemaker Type Permanent 04/24/2025 8:04 AM EDT Kimberly Varghese RN * Gastrointestinal Question Answer Date of Assessment Author Passing Flatus Yes 04/23/2025 7:54 PM EDT Reginald Staples RN Gastrointestinal (WDL) WDL 04/24/2025 8:04 AM EDT Kimberly Syed RN Gastrointestinal Symptoms Nausea 04/24/2025 3:00 AM EDT Reginald Staples RN * Peripheral Vascular Question Answer Date of Assessment Author Peripheral Vascular (WDL) WD 04/24/2025 8:04 AM EDT Kimberly Syed RN Capillary Refill Less than/equal to 2 seconds (All extremities) 04/24/2025 8:04 AM EDT Kimberly Syed RN Pulses Right radial;Left radial;Right posterior tibial;Left posterior tibial;Right pedal;Left pedal 04/24/2025 8:04 AM EDT Kimberly Syed RN Cyanosis None 04/20/2025 8:05 AM EDT Yamial Kellogg RN * RUE Neurovascular Assessment Question Answer Date of Assessment Author RUE Edema Other (Comment) 04/20/2025 8:05 AM EDT Yamila Garcia RN RURobert Capillary Refill Less than/equal to 2 seconds 04/23/2025 7:54 PM EDT Reginald Staples RN RURobert Color Appropriate for ethnicity 04/23/2025 7:54 PM EDT Reginald Staples RN RURobert Temperature/Moisture Warm;Dry 04/24/2025 8:04 AM EDT Kimberly Syed R N Right Radial Pulse +2 04/24/2025 8:04 AM EDT Kimberly Syed RN * LUE Neurovascular Assessment Question Answer Date of Assessment Author LUE Capillary Refill Less than/equal to 2 seconds 04/23/2025 7:54 PM EDT Reginald Staples RN LURobert Color Appropriate for ethnicity 04/23/2025 7:54 PM EDT Reginald Staples RN LUE Temperature/Moisture Warm;Dry 04/24/2025 8:04 AM EDT Kimberly Syed R N Left Radial Pulse +2 04/23/2025 7:54 PM EDT Reginald Staples RN * RLE Neurovascular Assessment Question Answer Date of Assessment Author RLE Capillary Refill Less than/equal to 2 seconds 04/23/2025 7:54 PM EDT Reginald Staples RN RLE Color Appropriate for ethnicity 04/23/2025 7:54 PM EDT Reginald Staples RN RLE Temperature/Moisture Warm;Dry 04/24/2025 8:04 AM EDT Kimberly Syed R N Right Posterior Tibial Pulse +1 04/24/2025 8:04 AM EDT Kimberly Syed RN Right Pedal Pulse +2 04/24/2025 8:04 AM EDT Kimberly Syed RN * LLE Neurovascular Assessment Question Answer Date of Assessment Author LLE Capillary Refill Less than/equal to 2 seconds 04/23/2025 7:54 PM EDT Reginald Staples RN LLE Color Appropriate for ethnicity 04/23/2025 7:54 PM EDT Reginald Staples RN LLE Temperature/Moisture Warm;Dry 04/24/2025 8:04 AM EDT Kimberly Syed R N Left Posterior Tibial Pulse +1 04/24/2025 8:04 AM EDT Kimberly Syed RN Left Pedal Pulse +2 04/24/2025 8:04 AM EDT Kimberly De Paz RN * Musculoskeletal Question Answer Date of Assessment Author Musculoskeletal (WDL) [facility] 04/24/2025 8:04 AM Kimberly Brown RN * Psychosocial Question Answer Date of Assessment Author Psychosocial ([facility]) [facility] 04/24/2025 8:04 AM EDT Kimberly Syed RN * Question Answer Date of Assessment Author Urine Color Yellow/straw 04/21/2025 4:25 AM EDT Katelin Fernandez PCT Urine Appearance Clear 04/21/2025 4:25 AM EDT Katelin Cutler PCT Urine Odor No odor 04/21/2025 4:25 AM EDT Katelin Fernandez PCT * Sherman Fall Risk Question Answer Date of Assessment Author History of Falling, Immediat e or Within 3 Months 25 04/24/2025 8:04 AM Kimberly Brown RN Secondary Diagnosis 15 04/24/2025 8:04 AM ED Kimberly Tesfaye RN Ambulatory Aid 0 04/24/2025 8:04 AM EDT Kimberly Varghese RN Intravenous Therapy/Heparin Lock 20 04/24/20 8:04 AM EDT Kimberly Syed RN Gait/Transferring 0 04/24/2025 8:04 AM EDT Kimberly Syed RN Mental Status 0 04/24/2025 8:04 AM EDT Kimberly Boone RN [place] Fall Risk Score 60 04/24/2025 8:04 AM EDT Kimberly Syed RN * Christiano Scale Question Answer Date of Assessment Author Christiano No Risk Interventions Continue to assess patient according to level of care 04/24/2025 8:04 AM EDT Kimberly Syed RN Sensory Perceptions 4 04/24/2025 8:04 AM ED T Kimberly Syed RN Moisture 4 04/24/2025 8:04 AM EDT Kimberly Arango RN Activity 3 04/24/2025 8:04 AM EDT Kimberly Arango RN Mobility 3 04/24/2025 8:04 AM EDT Kimberly Arango RN Nutrition 3 04/24/2025 8:04 AM EDT Kimberly Arango RN Friction and Shear 3 04/24/2025 8:04 AM EDT Kimberly Syed RN Christiano Scale Score 20 04/24/2025 8:04 AM EDT Kimberly Syed RN * LUE Motor Response Answer Date of Assessment Author Responds to commands 04/22/2025 11:30 AM EDT Kelly Soto RN * LUE Sensation Answer Date of Assessment Author Full sensation 04/22/2025 11:30 AM EDT Robert Nuno RN * LLE Motor Response Answer Date of Assessment Author Responds to commands 04/22/2025 11:30 AM EDT Kelly Soto RN * LLE Sensation Answer Date of Assessment Author Full sensation 04/22/2025 11:30 AM EDT Robert Nuno RN * RUE Motor Response Answer Date of Assessment Author Responds to commands 04/22/2025 11:30 AM EDT Kelly Soto RN * RUE Sensation Answer Date of Assessment Author Full sensation 04/22/2025 11:30 AM EDT Robert Nuno RN * RLE Motor Response Answer Date of Assessment Author Responds to commands 04/22/2025 11:30 AM EDT Kelly Soto RN * RLE Sensation Answer Date of Assessment Author Full sensation 04/22/2025 11:30 AM EDT Robert Nuno RN * Charting Type Question Answer Date of Assessment Author Charting Type Shift assessment 04/24/2025 8:04 AM EDT Kimberly Syed RN * Values/Beliefs Question Answer Date of Assessment Author Cultural Requests During Hospitalization NONE 04/19/2025 10:40 AM EDT Karrie Garza RN Spiritual Requests During Hospitalization NONE 04/19/2025 10:40 AM EDT Karrie Garza RN * Genitourinary Question Answer Date of Assessment Author Genitourinary (WDL) WDL 04/24/2025 8:04 AM ED T Kimberly Syed RN * Patient Monitoring Question Answer Date of Assessment Author Frequency of Checks Twice per hour, standard 8:04 AM EDKimberly Tesfaye RN * Safe Environment Question Answer Date of Assessment Author Arm Bands On ID;Allergies;Fall 04/24/2025 8:04 AM Kimberly Brown RN Side Rails/Bed Safety 2/4 04/24/2025 8:04 AM Kimberly Brown RN Bed Alarms On 04/24/2025 8:04 AM GWENT Kimberly Arango RN The Patient's Environment is Safe Yes 04/24/2025 8:04 AM Kimberly Brown RN * Mobility Question Answer Date of Assessment Author Resting bed 04/24/2025 8:04 AM Kimberly Brown RN Activity Performed Resting in bed 04/24/2025 8: 04 AM Kimberly Brown RN Distance Ambulated (ft) 500 04/22/20 6:00 PM GWENT Kelly Nuno RN Ambulation Response Tolerated well 04/22/2025 6 :00 PM EDT Kelly Nuno RN Repositioned Turns self 04/24/2025 8:04 AM Kimberly Bronw RN Level of Assistance Independent after set-up 04/24/2025 8:04 AM Kimberly Brown RN Head of Bed Elevated Self regulated 04/24/2025 8:04 AM Kimberly Brown RN Heels/Feet Heels elevated off bed 8:04 AM Kimberly Brown RN Range of Motion Active;All extremities 8:04 AM Kimberly Brown RN Anti-Embolism Devices Bilateral;Sequenti al compression devices, below knee 04/24/2025 8:04 AM Kimbelry Brown RN Anti-Embolism Intervention Off 04/24/2025 8:04 AM Kimberly Brown RN Patient's mobility zone Zone 6 04/23/20 8:00 PM Reginald Poon RN Positioning Frequency Able to turn self 04/24/20 8:04 AM Kimberly Brown RN * Hygiene Question Answer Date of Assessment Author Linen change Partial linen change 04/23/2025 8:00 PM Reginald Poon RN Skin Care Incontinent cleanser;Per self 04/20/2025 8:00 AM GWENT Yamila Rasmussen RN Hygiene Per self 04/23/2025 8:00 PM Reginald Poon RN Level of Assistance Independent 04/20/2025 8 :00 PM Reginald Poon RN Is Patient Total Care? No 9:10 AM GWENT Kelly Nuno RN Incontinence Protective Devices Absorbent pad 04/23/2025 8:00 PM Reginald Poon RN * Precautions Question Answer Date of Assessment Author Precautions Bleeding;Fall 04/24/2025 8:04 AM Kimberly Hannah RN * Family/Significant Other Communication Question Answer Date of Assessment Author Family/Significant Other Update Visiting 8:04 AM Kimberly Brown RN * Comfort and Environment Interventions Question Answer Date of Assessment Author Comfort Repositioned 04/24/2025 8:04 AM Kimberly Campoverde RN * ADL Screening Question Answer Date of Assessment Author Do you snore or wake up gasp ing for air? No 04/19/2025 10:46 AM Karrie Nails, SAL Can you bring in your CPAP/B iPAP [...] Functional 04/19/2025 10:46 AM Karrie Haque RN Which is your dominant hand? Right 04/19/2025 1 0:46 AM Karrie Nails RN * Consults Question Answer Date of Assessment Author Spiritual Care Consult Needed No 04/19/2025 10:40 AM Karrie Nails RN Social Services Consult Needed No 04/19/2025 10:40 AM Karrie Nails RN * Therapy Consults Question Answer Date of Assessment Author PT Evaluation Needed 1 04/19/2025 10:46 AM Karrie Nails RN OT Evaluation Needed 1 04/19/2025 10:46 AM Karrie Nails RN MOTOR VEHICLE EXAMINER Evaluation Needed 2 04/19/2025 10:46 AM Karrie Nails RN * Assistive Devices Question Answer Date of Assessment Author Assistive Devices Other (Comment) 04/19/2025 10:46 AM Karrie Nails RN * Provider Notification Question Answer Date of Assessment Author Provider Role Consulting physician 04/24/2025 7:40 AM Kimberly Brown RN Communication Comments Per assistant casino shift manager R N, buttonhole maker hand provider instructed RN's to call [phone] to notify of PVC's up to 30. Attempted call but line was busy, will attempt again. 04/24/2025 7:40 AM Kimberly Brown RN Provider Name Cardiology 04/24/2025 7:40 AM Kimberly Brown RN Method of Communication Call 04/24/20 7:40 AM Kimberly Brown RN Reason for Communication Abnormal vitals 7:40 AM Kimberly Brown RN Response Other (Comment) 04/24/2025 7:40 AM Kimberly Brown RN Shift Event Fall 04/23/2025 3:35 AM Reginald Poon RN Notification Time [id number] 04/24/2025 7:0 4 AM Reginald Poon RN Fall Injury Type Skin tear;Ecchymosis 04/23/2025 3:35 AM Reginald Poon RN * [place] Fall Risk Interventions Question Answer Date of Assessment Author [place] Fall Risk Interventions Complete 8:04 AM Kimberly Brown RN * Suicidal Ideation Question Answer Date of Assessment Author 1. Wish to be (Lifetime) No 04/19/2025 10:43 AM Karrie Nails RN 2. Non-Specific Active Suici marianela Thoughts (Lifetime) No 04/19/2025 10:43 AM Karrie Nails RN * [place] Coma Scale Question Answer Date of Assessment Author Best Eye Response Spontaneous 04/24/2025 8:04 AM Kimberly Brown RN Best Verbal Response Oriented 04/24/2025 8:04 AM Kimberly Qiu, RN Best Motor Response Follows commands 04/24/2025 8:04 A M Kimberly Brown RN Rosangela Coma Scale Score 15 04/24/2025 8:04 AM EDT Kimberly Syed RN * Pain Assessment Question Answer Date of Assessment Author Pain Location Elbow 04/23/2025 4:54 AM EDT Reginald Staples RN Pain Orientation Left 04/23/2025 4:54 AM EDT Reginald Staples RN Pain Interventions Emotional support;Environmental changes;Relaxation technique;Repositioned 04/24/2025 8:04 AM EDT Kimberly Syed RN Pain Descriptors Dull 04/23/2025 4:54 AM EDT Reginald Staples RN Pain Onset Gradual 04/20/2025 12:02 AM EDT Radha Marsh RN Pain Frequency Intermittent 04/20/2025 12:02 AM EDT Radha Marsh RN Patient's Stated Pain Goal No pain 04/24/2025 8:04 AM EDT Kimberly Syed RN Pain Type Acute pain 04/23/2025 4:54 AM GWENT Reginald Staples RN Clinical Progression Not changed 04/24/2025 8:04 AM EDT Kimberly Syed RN Pain Score 0 - No pain 04/24/2025 8:04 AM EDT Kimberly Syed RN Pain Assessment No/denies pain 04/24/2025 12:11 PM EDT Kimberly Syed RN * Nutrition Question Answer Date of Assessment Author Diet Type NPO 04/24/2025 12:00 AM GWENT Reginald Staples RN Feeding Able to feed self 04/23/2025 8:00 PM GWENT Reginald Staples RN Appetite Fair 04/23/2025 8:00 PM EDT Reginald Staples RN * Peripheral Vascular Additional Assessments Answer Date of Assessment Author Right lower extremity 04/22/2025 11:30 AM EDT Kelly Stratton RN * Integumentary Question Answer Date of Assessment Author Skin Color Appropriate for race 04/23/2025 7:54 PM E Reginald Decker RN Skin Condition/Temp Warm;Dry 04/23/2025 7:54 PM ED Reginald Hodgson RN Skin Integrity Other (Comment) 04/24/2025 8:04 AM EDT Kimberly Syed RN Skin Turgor Non-tenting 04/23/2025 7:54 PM EDT Reginald Staples RN Integumentary (WDL) X 04/24/2025 8:04 AM ED T Kimberly Syed RN * GI Interventions Question Answer Date of Assessment Author GI Interventions Performed Antiemetic 04/24/2025 3:0 0 AM EDT Reginald Staples RN * Question Answer Date of Assessment Author Urinary Frequency Adequate 04/21/2025 3:00 PM EDT Kelly Nuno RN Urinary Incontinence No 04/21/2025 3:00 PM E DT Kelly Nuno RN * Question Answer Date of Assessment [place] [id number] 04/21/2025 3:00 PM EDT Kelly Nuno RN Stool Color Yellow 04/22/2025 9:31 PM EDT Reginald Staples RN Stool Appearance Loose 04/22/2025 9:31 PM EDT Reginald Julien RN Bowel Incontinence No 04/21/2025 3:00 PM EDT Kelly Nuno RN * Question Answer Date of Assessment Author Patient Goal for Treatment discharge 04/24/2025 8:0 0 AM EDT Kimberly Syed RN * Patient Strengths/Problem Areas Question Answer Date of Assessment Author Strengths (Must Choose Two) Supportive Family;Communication Skills 04/19/2025 10:40 AM EDT Karrie Garza RN Problem Areas Health Problems;Physical Health 04/19/2025 10:40 AM EDT Karrie Garza RN * Care Plan - Safety Goals Question Answer Date of Assessment Author Free from fall injury Assess patient frequently for physical needs 04/24/2025 8:04 AM EDT Kimberly Syed RN * Modified Clary Question Answer Date of [...] of Assessment Author 3 04/19/2025 10:45 AM EDT Fransisco Garza RN documented as of this encounter Mental Status * West Agitation Sedation Scale Question Answer Entry Date Author West Agitation Sedation Scale (RASS) 0 04/24/2025 3:28 PM EDT Marco Walters RN * [place] Coma Scale Question Answer Entry Date Author Best Eye Response Spontaneous 04/24/2025 8:04 AM Kimberly Brown RN Best Verbal Response Oriented 04/24/2025 8:04 AM E DT Kimberly Syed RN Best Motor Response Follows commands 04/24/2025 8:04 A M EDKimberly Tesfaye RN [place] Coma Scale Score 15 04/24/2025 8:04 AM EDT Kimberly Syed RN * Modified [place] Question Answer Entry Date Author Activity 2 04/24/2025 3:43 PM EDT Marco Martinez RN Respiration 2 04/24/2025 3:43 PM EDT Marco Martinez RN Circulation 2 04/24/2025 3:43 PM EDT Marco Martinez RN Consciousness 2 04/24/2025 3:43 PM EDT Maroc Cerna RN Oxygen Saturation 2 04/24/2025 3:43 [...] up taller/more pillowsthan normal or in recliner. [phone]. Cardiac Event Monitor Call [phone] at discharge to confirm Heart Station's Cardiac [...] 40 mg tabletIndications :Coronary artery disease involving [place] coronary artery of [place] heart without angina pectoris Take 1 tablet [...] Karsten San PT, DPT * Katy Joy, ALEXIS - 05/04/2025 3:05 PM EDT SINCE PALLIATIVE CARE PROGRESS NOTE ADVANCED DIRECTIVES: HCPOA [...] contact us Wednesday through Wednesday 8:30am-5:00pm through [employer] Chat or call [phone]. After Hours please call [phone]. * Igor Greene MD - 05/04/2025 2:52 [...] s/p Watchman procedure, who was transferred from [facility] with initial chief complaint of chest and [...] Last Dose Status albuterol 90 mcg/actuation inhaler [id number] Inhale 1 puff 2 times daily. Historical Provider, Active allopurinol (Zyloprim) 300 mg tablet [id number] Yes Take 300 mg by mouth in the morning. Historical ProviderMD 04/18/2025 Morning Active amoxicillin (Amoxil) 500 mg tablet [id number] No Take 4 tablets (2,000 mg) by mouth 1 (one) time if needed (30-60 minute prior to dental procedures) for up to 20 doses. Patient not taking: Reported on 04/19/2025 Hay William MD Unknown Active aspirin 81 mg chewable tablet [id number] Yes Chew 1 tablet (81 mg) with breakfast. Hay William MD 04/18/2025 Morning Active atorvastatin (Lipitor) 40 mg tablet [id number] Yes Take 1 tablet (40 mg) by mouth at bedtime. Hay William MD 04/18/2025 Bedtime Active clopidogrel (Plavix) 75 mg tablet [id number] Yes Take 1 tablet (75 mg) by mouth in the morning. Hay William MD 04/18/2025 Morning Active dapagliflozin propanediol (Farxiga) 10 mg [id number] Yes Take 1 tablet (10 mg) by mouth once daily asdirected. Shania Chauhan CNP 04/18/2025 Morning Active Dupixent Syringe 300 mg/2 mL syringe injection [id number] No Inject 300 mg under the skin every 14 (fourteen) days. Historical Provider, 04/07/2025 Active fluticasone (Flonase) 50 mcg/actuation nasal spray [id number] Yes Administer 1 spray into each nostril two times daily. Shake gently. Before first use, prime pump. After use, clean tip and replace cap.Historical ProviderMD 04/18/2025 Bedtime Active fluticasone propion-salmeteroL (Advair Diskus) 500-50 mcg/dose diskus inhaler [id number] Yes Inhale 1puff two times daily. Historical ProviderMD 04/18/2025 Bedtime Active metoprolol succinate XL (Toprol-XL) 50 mg 24 hr tablet [id number] Yes Take 1 tablet (50 mg) by mouth once daily as directed. Do not crush or chew. Hay William MD 04/18/2025 Morning Active sacubitril-valsartan (Entresto) 97-103 mg tablet [id number] Yes Take 1 tablet by mouth two times daily. Hay William MD 04/18/2025 Bedtime Active spironolactone (Aldactone) 25 mg tablet [id number] Yes Take 1 tablet (25 mg) by [...] follow-up with cardiology and primary care at [facility], no [facility] to [facility] but can consult nephrology at [facility] per primary teams. Igor Greene MD PGY 2 vice president pharmacy [facility] Nephrology Pager: [phone] Phone (7am - 4pm): [phone] Cosigned by Karina Amaya MD at 05/05/2025 [...] Value Ventricular Rate 120 Atrial Rate 120 HI Interval 198 QRS DURATION 102 QT Interval 294 QTC CALCULATION(BAZETT) 415 P Jarreau 64 R-Jarreau 38 T Wave Jarreau 116 Impression Sinus tachycardia Low voltage QRS Septal infarct , age undetermined Abnormal ECG When compared with ECG of 19-APR-2025 18:24, Premature ventricular complexes are no longer Present Confirmed by Jeffy VERNON, MITESH Pruett (57) on 04/23/2025 8:14:48 AM Lab Results Component Value Date TROPONINI 0.04 07/02/2022 Transthoracic echo (TTE) limited Result Date: 04/30/2025 1 1 [facility] Heart Station [address] [place], [place] [phone] (fax) Echocardiogram-[facility] Name: KRISTY DOHERTY Study Date: 04/30/2025 07:02 AM B/P: 121 mmHg/100 mmHg HR: 87 bpm Date of : 1955 Location:[facility] Height: 68 in. Age: 69 year(s) Patient [...] with the fellow Procedure Staff Reading Group: [facility] Referring Physician: RUDY KING Newspaper Distributor Supervisor: June Brumfield RDCS,RVT, RN, BSN Ordering Physician: Wil Sotomayor MD Wall Motion Scores -1 - hyperkinesia, 0 - not evaluated, 1 - normal, 2 - hypokinesia, 3 - akinesia, 4 - dyskinesia Limited Echo (TTE) w/wo Limited Doppler, Color Flow, Imaging Agent, Strain, 3D, Bubble Study Result Date: 04/23/2025 1 1 [facility] Heart Station [address] [facility] [place] [place] [address] [phone] (fax) Echocardiogram-[facility] Name: KRISTY DOHERTY Study Date: 04/23/2025 07:26 AM B/P: 90 mmHg/74 mmHg HR: 111 bpm Date of : 1955 Location: [facility] Height: 68 in. Age: 69 year(s) Patient [...] minimal pericardial effusion. Procedure Staff Reading Group: [facility] Referring Physician: RUDY KING Newsp[employer] Distributor Supervisor: June Brumfield RDCS, RVT, RN, BSN Ordering Physician: FANI DENNEY Wall Motion Scores -1 - hyperkinesia, 0 - not evaluated, 1 - normal, 2 - hypokinesia, 3 - akinesia, 4 - dyskinesia Transthoracic echo (TTE) limited Result Date: 04/20/2025 1 1 [facility] Heart Station [address] [facility] [place] [place] [address] [phone] (fax) Echocardiogram-[facility] Name: KRISTY DOHERTY Study Date: 04/20/2025 01:28 PM B/P: 83 mmHg/58 mmHg HR: 96 bpm Date of : 1955 Location: [facility] Height: 68 in. Age: 69 year(s) Patient [...] No pericardial effusion. Procedure Staff Reading Group: [facility] Referring Physician:RUDY KING Newsp[employer] Distributor Supervisor: June Brumfield RDCS, RVT, RN, BSN Ordering Physician: VENU SAMANIEGO Wall Motion Scores -1 - hyperkinesia, 0 - not evaluated, 1 - normal, 2 - hypokinesia, 3 - akinesia, 4 - dyskinesia Transthoracic echo (TTE) limited Result Date: 04/19/2025 1 1 [facility] [address] [place] [phone] (fax) Echocardiogram-[facility] Name: KRISTY DOHERTY Study Date: 04/19/2025 02:13 PM B/P: / HR: Date of : 1955 Location: [facility] Height: 68 in. Age: 69 year(s) Patient Room: 3183 Weight: 182 lb. Gender: Male Patient Status: InPt BSA: 1.96 m2 Indication: pericardialeffusion, h/o 35mm Watchman FLX Examination: Limited Echo Image Quality: Fair Findings Pericardium: Moderate pericardial effusion baseline. Post pericardiocentesis there is minimal pericardial effusion. Procedure Staff Reading Group: [facility] Referring Physician: RUDY KING Newsp[employer] Distributor Supervisor: SAMI Starr, RDCS Ordering Physician: VENU SAMANIEGO Complete Echo (TTE) w/wo Imaging Agent, Strain, 3D, Bubble Study Result Date: 04/19/2025 1 1 [facility] Heart Station [address] [place] [address] [phone] (fax) Echocardiogram-[facility] Name: KRISTY DOHERTY Study Date: 04/19/2025 12:46 PM B/P: 97 mmHg/71 mmHg HR: Date of : 1955 Location: [facility] Height: 68 in. Age: 69 year(s) Patient [...] early tamponade physiology. Procedure Staff Reading Group: [facility] [employer] Supervisor: Bryanna Cazares RDCS Ordering Physician: HAKAN Canchola signed by MD Mitesh Vernon on 04/19/2025 at 01:44 PM Limited Transthoracic Echo (TTE) w/wo Contrast, Color Flow, Imaging Agent, Strain, 3D, Bubble Study Result Date: 02/07/2025 1 1 [facility] Heart Station [address] [place] [address] [phone] (fax) Echocardiogram-[facility] Name: KRISTY DOHERTY Study Date: 02/07/2025 08:02 AM B/P: 118 mmHg/85 mmHg HR: 63 bpm Date of : 1955 Location: [facility] Height: 68 in. Age: 69 year(s) Patient [...] No pericardial effusion. Procedure Staff Reading Group: [facility] Referring Physician: RUDY KING Newspaper Distributor Supervisor: SAMI Starr, RDCS Ordering Physician: CHUCK FUNEZ Transesophageal echo (MASON) Result Date: 12/01/2024 1 [facility] Heart Station [address] [place] [address] [phone] (fax) Transesophageal Echocardiogram-[facility] Name: KRISTY DOHERTY Study Date: 12/01/2024 12:00 PM B/P: 134 mmHg/87 mmHg HR: 80 bpm Date of : 1955 Location: [facility] Height: 68 in. Age: 69 year(s) Patient Room: Weight: 194 lb. Gender: Male PatientStatus: OutPt BSA: 2.02 m2 Indication: Atrial Fibrillation, Pre-Watchman Examination: MASON, Color flow imaging Image Quality: Excellent Patient Consent: Informed, written consent was obtained for the procedure Exam Location: A MASON was performed in the Nodulizer without complications Anesthesia Pharyngeal anesthesia with viscous [...] examination with the fellow Procedure Staff ReadingGroup: [facility] Referring Physician: RUDY KING Newspaper Distributor Supervisor: DORIAN Walker Ordering Physician: Hay William MD [...] on telemetry, on amiodarone gtt Paroxysmal A-fib [id number] 3 (heart failure, hypertension, age 65-74) s/p [...] Alba Mena MD Internal medicine resident, PGY-3 [facility] Cosigned by Mitesh Vernon MD at [...] additional personal documentation from me. * Griselda Bonilla, RD - 05/04/2025 11:25 AM EDT Adult [...] trays. S/o food tastes bland. Taking Boost [facility] BID (drinking ~1 carton total). 05/04/25: [...] of Nutrition and Dietetics (AND) and the [employer] Society of Enteral and Parenteral Nutrition (ASPEN). [...] To reach the Clinical Dietitian, please utilize [employer] chat Wednesday-Wednesday from 8AM-4PM or call extension [phone]. For weekends (Wednesday-Wednesday) and holidays, the Clinical Dietitian can be reached via pager ([phone]) from 9AM-3PM. The Clinical Nutrition Department is unable to respond to [employer] chat messages on Sundays and hol. 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 [facility] Medicine Daily Progress Note - 05/03/2025 12:08 PM; Room: [address] [place] [address] Admission: 04/19/2025 10:46 AM; Length of stay: 14 days THE HOSPITALIST TEAM PREFERS TO USE [employer] CHAT FOR NON-URGENT COMMUNICATION 7AM- 7PM. IF I DO NOT RESPOND WITHIN 20 MINUTES OR URGENT MATTERS, PLEASE CALL THROUGH THE [employer] ARTICLES. FROM 7PM-7AM, PLEASE PAGE [phone](COVR). Code Status: Full Code Barriers to Discharge: [...] ventricular dysfunction Cardiogenic shock (CMS/HCC) - Required [place] Shannan and dobutamine in ICU. - Improving. [...] showed early tamponade. Patient was taken to microbiology lab analyst for Pericardiocentesis. Right heart cath was not [...] due to LINDA. Coronary artery disease involving [place] vie[place] coronary artery of lac vie[place] heart with angina pectoris - Nonobstructive. - [...] from last 7 days Lab Units 05/03/25 03505/02/25 0313 WBC AUTO 10*3/uL 6.22 5.94 HEMOGLOBIN [...] Imaging Transthoracic echo (TTE) limited 1 1 [facility] Heart Station [address] [place] [address] [phone] (fax) Echocardiogram-[facility] Name: KRISTY DOHERTY Study Date: 04/30/2025 07:02 AM B/P: 121 mmHg/100 mmHg HR: 87 bpm Date of : 1955 Location: [facility] Height: 68 in. Age: 69 year(s) Patient [...] with the fellow Procedure Staff Reading Group: [facility] Referring Physician: RUDY KING Newsp[employer] Distributor Supervisor: June Brumfield RDCS, RVT, RN, BSN Ordering [...] prior living environment Signed Benedict Pascual MD [facility] Medicine 05/03/2025 12:08 PM * Kristin [...] s/p Watchman procedure, who was transferred from [address] with initial chief complaint of chest and [...] Last Dose Status albuterol 90 mcg/actuation inhaler [id number] Inhale 1 puff 2 times daily. Historical ProviderMD Active allopurinol (Zyloprim) 300 mg tablet [id number] Yes Take 300 mg by mouth in the morning. Historical ProviderMD 04/18/2025 Morning Active amoxicillin (Amoxil) 500 mg tablet [id number] No Take 4 tablets (2,000 mg) by mouth 1 (one) time if needed (30-60 minute prior to dental procedures) for up to 20 doses. Patient not taking: Reported on 04/19/2025 Hay William MD Unknown Active aspirin 81 mg chewable tablet [id number] Yes Chew 1 tablet (81 mg) with breakfast. Hay William MD 04/18/2025 Morning Active atorvastatin (Lipitor) 40 mg tablet [id number] Yes Take 1 tablet (40 mg) by mouth at bedtime. Hay William MD 04/18/2025 Bedtime Active clopidogrel (Plavix) 75 mg tablet [id number] Yes Take 1 tablet (75 mg) by mouth in the morning. Hay William MD 04/18/2025 Morning Active dapagliflozin propanediol (Farxiga) 10 mg [id number] Yes Take 1 tablet (10 mg) by mouth once daily asdirected. Shania Chauhan CNP 04/18/2025 Morning Active Dupixent Syringe 300 mg/2 mL syringe injection [id number] No Inject 300 mg under the skin every 14 (fourteen) days. Historical Provider, 04/07/2025 Active fluticasone (Flonase) 50 mcg/actuation nasal spray [id number] Yes Administer 1 spray into each nostril two times daily. Shake gently. Before first use, prime pump. After use, clean tip and replace cap.Historical ProviderMD 04/18/2025 Bedtime Active fluticasone propion-salmeteroL (Advair Diskus) 500-50 mcg/dose diskus inhaler [id number] Yes Inhale 1puff two times daily. Historical ProviderMD 04/18/2025 Bedtime Active metoprolol succinate XL (Toprol-XL) 50 mg 24 hr tablet [id number] Yes Take 1 tablet (50 mg) by mouth once daily as directed. Do not crush or chew. Hay William MD 04/18/2025 Morning Active sacubitril-valsartan (Entresto) 97-103 mg tablet [id number] Yes Take 1 tablet by mouth two times daily. Hay William MD 04/18/2025 Bedtime Active spironolactone (Aldactone) 25 mg tablet [id number] Yes Take 1 tablet (25 mg) by [...] Radiology: Transthoracic echo (TTE) limited 1 1 [facility] Heart Station [address] [place] [address] [phone] (fax) Echocardiogram-[facility] Name: KRISTY DOHERTY Study Date: 04/30/2025 07:02 AM B/P: 121 mmHg/100 mmHg HR: 87 bpm Date of : 1955 Location: [facility] Height: 68 in. Age: 69 year(s) Patient [...] with the fellow Procedure Staff Reading Group: [facility] Referring Physician: RUDY KING Newsp[employer] Distributor Supervisor: June Brumfield RDCS, RVT, RN, BSN Ordering [...] watch for renal recovery. No indication for TRAFFIC RATE CLERK at this time. Patient remained stable and is now on the floor. Maintain femoral catheter at this time. Will continue to trend Creatinine to assess when to remove femoral catheter. Electrolyte replacement as needed Continue to avoid nephrotoxic medications. Nephrology service will continue to follow. Kristin SANCHEZ MD Nephrology Fellow PGY 4 - [facility] Nephrology Pager: [phone] Phone (7am - 4pm): [phone] Cosigned by Karina Amaya MD at 05/03/2025 [...] ??F) Temporal 88 13 96 % -- 05/02/25 2005 106/66 36.3 ??C (97.3 ??F) Temporal 94 [...] Value Ventricular Rate 120 Atrial Rate 120 HI Interval 198 QRS DURATION 102 QT Interval 294 QTC CALCULATION(BAZETT) 415 P Jarreau 64 R-Jarreau 38 T Wave Jarreau 116 Impression Sinus tachycardia Low voltage QRS Septal infarct , age undetermined Abnormal ECG When compared with ECG of 19-APR-2025 18:24, Premature ventricular complexes are no longer Present Confirmed by Jeffy VERNON, MITESH Pruett (57) on 04/23/2025 8:14:48 AM Lab Results Component Value Date TROPONINI 0.04 07/02/2022 Transthoracic echo (TTE) limited Result Date: 04/30/2025 1 1 [facility] Heart Station [address] [place] [address] [phone] (fax) Echocardiogram-[facility] Name: KRISTY DOHERTY Study Date: 04/30/2025 07:02 AM B/P: 121 mmHg/100 mmHg HR: 87 bpm Date of : 1955 Location:[facility] Height: 68 in. Age: 69 year(s) Patient [...] with the fellow Procedure Staff Reading Group: [facility] Referring Physician: RUDY KING [employer] Distributor Supervisor: June Brumfield RDCS,RVT, RN, BSN Ordering Physician: Wil Sotomayor MD Wall Motion Scores -1 - hyperkinesia, 0 - not evaluated, 1 - normal, 2 - hypokinesia, 3 - akinesia, 4 - dyskinesia Limited Echo (TTE) w/wo Limited Doppler, Color Flow, Imaging Agent, Strain, 3D, Bubble Study Result Date: 04/23/2025 1 1 [facility] Heart Station [address] [place] [address] [phone] (fax) Echocardiogram-[facility] Name: KRISTY DOHERTY Study Date: 04/23/2025 07:26 AM B/P: 90 mmHg/74 mmHg HR: 111 bpm Date of : 1955 Location: [facility] Height: 68 in. Age: 69 year(s) Patient Room: 4403 Weight: 177 lb. Gender: Male Patient Status: [...] minimal pericardial effusion. Procedure Staff Reading Group: [facility] Referring Physician: RUDY KING [employer] Distributor Supervisor: June Brumfield, DEAN, RVT, RN, BSN Ordering Physician: FANI DENNEY Wall Motion Scores -1 - hyperkinesia, 0 - not evaluated, 1 - normal, 2 - hypokinesia, 3 - akinesia, 4 - dyskinesia Transthoracic echo (TTE) limited Result Date: 04/20/2025 1 1 [facility] Heart Station [address] [place] [address] [phone] (fax) Echocardiogram-[facility] Name: KRISTY DOHERTY Study Date: 04/20/2025 01:28 PM B/P: 83 mmHg/58 mmHg HR: 96 bpm Date of : 1955 Location: [facility] Height: 68 in. Age: 69 year(s) Patient Room: [facility] Weight: 179 lb. Gender: Male Patient Status: [...] No pericardial effusion. Procedure Staff Reading Group: [facility] Referring Physician:RUDY KING Newsp[employer] Distributor Supervisor: June Brumfield RDCS, RVT, RN, BSN Ordering Physician: VENU SAMANIEGO Wall Motion Scores -1 - hyperkinesia, 0 - not evaluated, 1 - normal, 2 - hypokinesia, 3 - akinesia, 4 - dyskinesia Transthoracic echo (TTE) limited Result Date: 04/19/2025 1 1 [facility] Heart Station [address] [place] [address] [phone] (fax) Echocardiogram-[facility] Name: KRISTY DOHERTY Study Date: 04/19/2025 02:13 PM B/P: / HR: Date of : 1955 Location: [facility] Height: 68 in. Age: 69 year(s) Patient Room: [facility] Weight: 182 lb. Gender: Male Patient Status: InPt BSA: 1.96 m2 Indication: pericardialeffusion, h/o 35mm Watchman FLX Examination: Limited Echo Image Quality: Fair Findings Pericardium: Moderate pericardial effusion baseline. Post pericardiocentesis there is minimal pericardial effusion. Procedure Staff Reading Group: [facility] Referring Physician: RUDY KING [employer] Distributor Supervisor: SAMI Starr, RDCS Ordering Physician: VENU SAMANIEGO Complete Echo (TTE) w/wo Imaging Agent, Strain, 3D, Bubble Study Result Date: 04/19/2025 1 1 [facility] Heart Station [address] [place] [address] [phone] (fax) Echocardiogram-[facility] Name: KRISTY DOHERTY Study Date: 04/19/2025 12:46 PM B/P: 97 mmHg/71 mmHg HR: Date of : 1955 Location: [facility] Height: 68 in. Age: 69 year(s) Patient [...] early tamponade physiology. Procedure Staff Reading Group: [facility] [employer] Supervisor: Bryanna Cazares RDCS Ordering Physician: HAKAN Canchola signed by MD Mitesh Vernon on 04/19/2025 at 01:44 PM Limited Transthoracic Echo (TTE) w/wo Contrast, Color Flow, Imaging Agent, Strain, 3D, Bubble Study Result Date: 02/07/2025 1 1 [facility] Heart Station [address] [place] [address] [phone] (fax) Echocardiogram-[facility] Name: KRISTY DOHERTY Study Date: 02/07/2025 08:02 AM B/P: 118 mmHg/85 mmHg HR: 63 bpm Date of : 1955 Location: [facility] Height: 68 in. Age: 69 year(s) Patient [...] No pericardial effusion. Procedure Staff Reading Group: [facility] Referring Physician: RUDY KING Newspaper Distributor Supervisor: SAMI Starr, RDCS Ordering Physician: CHUCK FUNEZ Transesophageal echo (MASON) Result Date: 12/01/2024 1 [facility] Heart Station [address] [place] [address] [phone] (fax) Transesophageal Echocardiogram-[facility] Name: KRISTY DOHERTY Study Date: 12/01/2024 12:00 PM B/P: 134 mmHg/87 mmHg HR: 80 bpm Date of : 1955 Location: [facility] Height: 68 in. Age: 69 year(s) Patient Room: Weight: 194 lb. Gender: Male PatientStatus: OutPt BSA: 2.02 m2 Indication: Atrial Fibrillation, Pre-Watchman Examination: MASON, Color flow imaging Image Quality: Excellent Patient Consent: Informed, written consent was obtained for the procedure Exam Location: A MASON was performed in the Nodulizer without complications Anesthesia Pharyngeal anesthesia with viscous [...] examination with the fellow Procedure Staff ReadingGroup: [facility] Referring Physician: RUDY KING Newspaper Distributor Supervisor: DORIAN Walker Ordering Physician: Hay William MD No nuclear medicine results found for the past 12 months Relevant Imaging Results Transthoracic echo (TTE) limited 1 1 [facility] Heart Station [address] [place] [address] [phone] (fax) Echocardiogram-[facility] Name: KRISTY DOHERTY Study Date: 04/30/2025 07:02 AM B/P: 121 mmHg/100 mmHg HR: 87 bpm Date of : 1955 Location: [facility] Height: 68 in. Age: 69 year(s) Patient [...] with the fellow Procedure Staff Reading Group: [facility] Referring Physician: RUDY KING [employer] Distributor Supervisor: June Brumfield RDCS, RVT, RN, BSN Ordering [...] on telemetry, on amiodarone gtt Paroxysmal A-fib [id number] 3 (heart failure, hypertension, age 65-74) s/p [...] to follow. Please call with any questions. Abla Mena MD Internal medicine resident, PGY-3 [facility] Cosigned by Mitesh Vernon MD at [...] personal documentation from me. * Darcy Alfredo, TRAFFIC RATE CLERK - 05/03/2025 7:41 AM EDT Respiratory Progress [...] Pt is 69 y.o male presenting to [facility] as a transfer from [address] with c/o chest pain radiating to neck [...] Communication: Intact General Assessment General Assessment Hearing: [place] Skin Integrity: Bruising/yellow discoloration noted to R [...] Level of Function Prior Function Level of Thayer: Independent with ADLs and functional transfers, Independent [...] to benefit from skilled PT services throughout [facility] to address impairments and maximize safeand [...] stand with SBA using least restrictive assistive eowgyl17/15/25 05/23/25 -- Problem: PT Misc Start Date: [...] Syncope and collapse Coronary artery disease involving lac vieux coronary artery of [place] vieux heart with angina pectoris Chronic systolic heart [...] : 1955 Today's Date: 05/02/2025 Start Time: 08 Stop Time: 09 Time Calculation (min): 24 min OT Evaluation [...] Communication: Intact General Assessment General Assessment Hearing: [place] Skin Integrity: Bruising/yellow discoloration noted to R [...] Level of Function Prior Function Level of Thayer: Independent with ADLs and functional transfers, Independent [...] Eating meals?: None (Independent) Total Score OT [facility]: 19 Assessment/Plan OT Assessment OT Impairments: Decreased ADL status, Decreased safe judgment during ADL, Decreased endurance, Decreased IADLs, Decreased trunk control for functional activities, Decreased functional mobility OT Assessment/BALWINDER Summary: Pt admit with chest pain pt [...] using least restrictive device. 05/02/25 05/09/25 -- Edith OTR/L, MOT [1] Patient Active Problem List Diagnosis New onset of congestive heart failure (CMS/HCC) Uncomplicated asthma History of malignant neoplasm of prostate Hypomagnesemia Primary hypertension Syncope and collapse Coronary artery disease involving lac vieux coronary artery of lac vieux heart with angina pectoris Chronic systolic heart [...] ??F) Temporal 92 17 95 % -- 05/01/25 1955 -- -- -- 91 14 96 % [...] Value Ventricular Rate 120 Atrial Rate 120 HI Interval 198 QRS DURATION 102 QT Interval 294 QTC CALCULATION(BAZETT) 415 P Jarreau 64 R-Jarreau 38 T Wave Jarreau 116 Impression Sinus tachycardia Low voltage QRS Septal infarct , age undetermined Abnormal ECG When compared with ECG of 19-APR-2025 18:24, Premature ventricular complexes are no longer Present Confirmed by Jeffy VERNON, MITESH Pruett (57) on 04/23/2025 8:14:48 AM Lab Results Component Value Date TROPONINI 0.04 07/02/2022 Transthoracic echo (TTE) limited Result Date: 04/30/2025 1 1 [facility] Heart Station [address] [place] [address] [phone] (fax) Echocardiogram-[facility] Name: KRISTY DOHERTY Study Date: 04/30/2025 07:02 AM B/P: 121 mmHg/100 mmHg HR: 87 bpm Date of : 1955 Location:[facility] Height: 68 in. Age: 69 year(s) Patient [...] with the fellow Procedure Staff Reading Group: [facility] Referring Physician: RUDY KING Newspaper Distributor Supervisor: June Brumfield RDCS,RVT, RN, BSN Ordering Physician: Wil Sotomayor MD Wall Motion Scores -1 - hyperkinesia, 0 - not evaluated, 1 - normal, 2 - hypokinesia, 3 - akinesia, 4 - dyskinesia Limited Echo (TTE) w/wo Limited Doppler, Color Flow, Imaging Agent, Strain, 3D, Bubble Study Result Date: 04/23/2025 1 1 [facility] Heart Station [address] [place] [address] [phone] (fax) Echocardiogram-[facility] Name: KRISTY DOHERTY Study Date: 04/23/2025 07:26 AM B/P: 90 mmHg/74 mmHg HR: 111 bpm Date of : 1955 Location: [facility] Height: 68 in. Age: 69 year(s) Patient [...] minimal pericardial effusion. Procedure Staff Reading Group: [facility] Referring Physician: RUDY KING [employer] Distributor Supervisor: June Brumfield RDCS, RVT, RN, BSN Ordering Physician: FANI DENNEY Wall Motion Scores -1 - hyperkinesia, 0 - not evaluated, 1 - normal, 2 - hypokinesia, 3 - akinesia, 4 - dyskinesia Transthoracic echo (TTE) limited Result Date: 04/20/2025 1 1 [facility] Heart Station [address] [place] [id number] [phone] (fax) Echocardiogram-[facility] Name: KRISTY DOHERTY Study Date: 04/20/2025 01:28 PM B/P: 83 mmHg/58 mmHg HR: 96 bpm Date of : 1955 Location: [facility] Height: 68 in. Age: 69 year(s) Patient [...] No pericardial effusion. Procedure Staff Reading Group: [facility] Referring Physician:RUDY KING [employer] Distributor Supervisor: June Brumfield RDCS, RVT, RN, BSN Ordering Physician: VENU SAMANIEGO Wall Motion Scores -1 - hyperkinesia, 0 - not evaluated, 1 - normal, 2 - hypokinesia, 3 - akinesia, 4 - dyskinesia Transthoracic echo (TTE) limited Result Date: 04/19/2025 1 1 [facility] Heart Station [address] [id number] [phone] (fax) Echocardiogram-[facility] Name: KRISTY DOHERTY Study Date: 04/19/2025 02:13 PM B/P: / HR: Date of : 1955 Location: [facility] Height: 68 in. Age: 69 year(s) Patient Room: 3183 Weight: 182 lb. Gender: Male Patient Status: InPt BSA: 1.96 m2 Indication: pericardialeffusion, h/o 35mm Watchman FLX Examination: Limited Echo Image Quality: Fair Findings Pericardium: Moderate pericardial effusion baseline. Post pericardiocentesis there is minimal pericardial effusion. Procedure Staff Reading Group: [facility] Referring Physician: RUDY KING [employer] Distributor Supervisor: SAMI Starr, RDCS Ordering Physician: VENU SAMANIEGO Complete Echo (TTE) w/wo Imaging Agent, Strain, 3D, Bubble Study Result Date: 04/19/2025 1 1 [facility] Heart Station [address] [place] [address] [phone] (fax) Echocardiogram-[facility] Name: KRISTY DOHERTY Study Date: 04/19/2025 12:46 PM B/P: 97 mmHg/71 mmHg HR: Date of : 1955 Location: [facility] Height: 68 in. Age: 69 year(s) Patient [...] early tamponade physiology. Procedure Staff Reading Group: [facility] [employer] Supervisor: Bryanna Cazares RDCS Ordering Physician: HAKAN Canchola signed by MD Mitesh Vernon on 04/19/2025 at 01:44 PM Limited Transthoracic Echo (TTE) w/wo Contrast, Color Flow, Imaging Agent, Strain, 3D, Bubble Study Result Date: 02/07/2025 1 1 [facility] Heart Station [address] [facility] [place] [place] [address] [phone] (fax) Echocardiogram-[facility] Name: KRISTY DOHERTY Study Date: 02/07/2025 08:02 AM B/P: 118 mmHg/85 mmHg HR: 63 bpm Date of : 1955 Location: [facility] Height: 68 in. Age: 69 year(s) Patient [...] No pericardial effusion. Procedure Staff Reading Group: [facility] Referring Physician: RUDY KING Newsp[employer] Distributor Supervisor: SAMI Starr, RDCS Ordering Physician: CHUCK FUNEZ Transesophageal echo (MASON) Result Date: 12/01/2024 1 [facility] Heart Station [address] [place] [address] [phone] (fax) Transesophageal Echocardiogram-[facility] Name: KRISTY DOHERTY Study Date: 12/01/2024 12:00 PM B/P: 134 mmHg/87 mmHg HR: 80 bpm Date of : 1955 Location: [facility] Height: 68 in. Age: 69 year(s) Patient Room: Weight: 194 lb. Gender: Male PatientStatus: OutPt BSA: 2.02 m2 Indication: Atrial Fibrillation, Pre-Watchman Examination: MASON, Color flow imaging Image Quality: Excellent Patient Consent: Informed, written consent was obtained for the procedure Exam Location: A MASON was performed in the Nodulizer without complications Anesthesia Pharyngeal anesthesia with viscous [...] examination with the fellow Procedure Staff ReadingGroup: [facility] Referring Physician: RUDY KING Newspaper Distributor Supervisor: DORIAN Walker Ordering Physician: Hay William MD No nuclear medicine results found for the past 12 months Relevant Imaging Results Transthoracic echo (TTE) limited 1 1 [facility] Heart Station [address] [place] [address] (fax) Echocardiogram-[facility] Name: KRISTY DOHERTY Study Date: 04/30/2025 07:02 AM B/P: 121 mmHg/100 mmHg HR: 87 bpm Date of : 1955 Location: [facility] Height: 68 in. Age: 69 year(s) Patient [...] with the fellow Procedure Staff Reading Group: [facility] Referring Physician: RUDY KING [employer] Distributor Supervisor: June Brumfield, DEAN, RVT, RN, BSN Ordering [...] on telemetry, on amiodarone gtt Paroxysmal A-fib [id number] (heart failure, hypertension, age 65-74) s/p [...] Alba Mena MD Internal medicine resident, PGY-3 [facility] Cosigned by Mitesh Vernon MD at [...] s/p Watchman procedure, who was transferred from [address] with initial chief complaint of chest and [...] Last Dose Status albuterol 90 mcg/actuation inhaler [id number] Inhale 1 puff 2 times daily. Historical Provider, Active allopurinol (Zyloprim) 300 mg tablet [id number] Yes Take 300 mg by mouth in the morning. Historical Provider, 04/18/2025 Morning Active amoxicillin (Amoxil) 500 mg tablet [id number] No Take 4 tablets (2,000 mg) by mouth 1 (one) time if needed (30-60 minute prior to dental procedures) for up to 20 doses. Patient not taking: Reported on 04/19/2025 Hay William MD Unknown Active aspirin 81 mg chewable tablet [id number] Yes Chew 1 tablet (81 mg) with breakfast. Hay William MD 04/18/2025 Morning Active atorvastatin (Lipitor) 40 mg tablet [id number] Yes Take 1 tablet (40 mg) by mouth at bedtime. Hay William MD 04/18/2025 Bedtime Active clopidogrel (Plavix) 75 mg tablet [id number] Yes Take 1 tablet (75 mg) by mouth in the morning. Hay William MD 04/18/2025 Morning Active dapagliflozin propanediol (Farxiga) 10 mg [id number] Yes Take 1 tablet (10 mg) by mouth once daily asdirected. Shania Chauhan, ALEXIS 04/18/2025 Morning Active Dupixent Syringe 300 mg/2 mL syringe injection [id number] No Inject 300 mg under the skin every 14 (fourteen) days. Historical Provider, 04/07/2025 Active fluticasone (Flonase) 50 mcg/actuation nasal spray [id number] Yes Administer 1 spray into each nostril two times daily. Shake gently. Before first use, prime pump. After use, clean tip and replace cap.Historical Provider, 04/18/2025 Bedtime Active fluticasone propion-salmeteroL (Advair Diskus) 500-50 mcg/dose diskus inhaler [id number] Yes Inhale 1puff two times daily. Historical Provider, 04/18/2025 Bedtime Active metoprolol succinate XL (Toprol-XL) 50 mg 24 hr tablet [id number] Yes Take 1 tablet (50 mg) by mouth once daily as directed. Do not crush or chew. Hay William MD 04/18/2025 Morning Active sacubitril-valsartan (Entresto) 97-103 mg tablet [id number] Yes Take 1 tablet by mouth two times daily. Hay William MD 04/18/2025 Bedtime Active spironolactone (Aldactone) 25 mg tablet [id number] Yes Take 1 tablet (25 mg) by [...] Radiology: Transthoracic echo (TTE) limited 1 1 [facility] Heart Station [address] [place] [address] (fax) Echocardiogram-[facility] Name: KRISTY DOHERTY Study Date: 04/30/2025 07:02 AM B/P: 121 mmHg/100 mmHg HR: 87 bpm Date of : 1955 Location: [facility] Height: 68 in. Age: 69 year(s) Patient [...] with the fellow Procedure Staff Reading Group: [facility] Referring Physician: RUDY KING Newsp[employer] Distributor Supervisor: June Brumfield RDCS, RVT, RN, BSN Ordering [...] watch for renal recovery. No indication for TRAFFIC RATE CLERK at this time. Electrolyte replacement per MICU protocol. Continue to avoid nephrotoxic medications. Patient is clear to transfer out of the ICU from Nephrology's standpoint. Nephrology service will continue to follow. Barry Jimenes MD PGY-3, Internal Medicine [facility] Cosigned by Karina Amaya MD at 05/02/2025 [...] additional personal documentation from me. * Karsten aGge MD - 05/02/2025 7:22 AM EDT Images from the original note were not included. Medical ICU Progress Note Patient - Kristy Doherty Age - 69 y.[facility]. [facility] 1955 [id number] Date of Admission - 04/19/2025 10:46 AM HPI/Hospital Course Subjective Kristy Doherty is an 69 y.o. male who came from [address] with chest pain with radiation to neck andback. Past medical history of heart failure with reduced ejection fraction, hypertension, coronary artery disease, cardiomyopathy nonischemic (AICD placed), hyperlipidemia, [facility] , asthma. Patient presents from [address] with chest pain radiating to the neck [...] elevated wedge pressure and RV pressures. A Boston-Shannan catheter was placed for further monitoring and [...] Radiology Transthoracic echo (TTE) limited 1 1 [facility] Heart Station [address] [place] [address] [phone] (fax) Echocardiogram-[facility] Name: KRISTY DOHERTY Study Date: 04/30/2025 07:02 AM B/P: 121 mmHg/100 mmHg HR: 87 bpm Date of : 1955 Location: [facility] Height: 68 in. Age: 69 year(s) Patient [...] with the fellow Procedure Staff Reading Group: [facility] Referring Physician: RUDY KING [employer] Distributor Supervisor: June Brumfield RDCS, RVT, RN, BSN Ordering [...] on 04/20 due to resolution of effusion Boston Shannan placed on 04/24, has showed improvement [...] progress note was completed using a voice employment evaluator/case manager system. Every effort was made to ensure accuracy. However, inadvertent computerized employment evaluator/case manager errors may be present. Karsten Gage MD [...] Patient : Kristy Doherty; 69 y.o. Location: [facility]-01 Attending: Dg Power MD Admit Date: 04/19/2025 Hospital Day: 12 Reason for Consult: Severe LINDA in setting of Cardiogenic Shock Subjective: History of present illness: Kristy Doherty is a 69 y.o. male with PMHx significant for CAD, Atrial fibrillation s/p Watchman procedure, who was transferred from [address] with initial chief complaint of chest and [...] mL/kg) [I.V.:7547.1 (92.8 mL/kg); IV Piggyback:300] Out: 23126 (166.5 mL/kg) [Urine:525 (0.2 mL/kg/hr); Other:21156] Weight: 81.3 kg Vital signs: Temperature: Temp: [...] Last Dose Status albuterol 90 mcg/actuation inhaler [id number] Inhale 1 puff 2 times daily. Historical Provider, Active allopurinol (Zyloprim) 300 mg tablet [id number] Yes Take 300 mg by mouth in the morning. Historical Provider, 04/18/2025 Morning Active amoxicillin (Amoxil) 500 mg tablet [id number] No Take 4 tablets (2,000 mg) by mouth 1 (one) time if needed (30-60 minute prior to dental procedures) for up to 20 doses. Patient not taking: Reported on 04/19/2025 Hay William MD Unknown Active aspirin 81 mg chewable tablet [id number] Yes Chew 1 tablet (81 mg) with breakfast. Hay William MD 04/18/2025 Morning Active atorvastatin (Lipitor) 40 mg tablet [id number] Yes Take 1 tablet (40 mg) by mouth at bedtime. Hay William MD 04/18/2025 Bedtime Active clopidogrel (Plavix) 75 mg tablet [id number] Yes Take 1 tablet (75 mg) by mouth in the morning. Hay William MD 04/18/2025 Morning Active dapagliflozin propanediol (Farxiga) 10 mg [id number] Yes Take 1 tablet (10 mg) by mouth once daily asdirected. Shania Chauhan, ALEXIS 04/18/2025 Morning Active Dupixent Syringe 300 mg/2 mL syringe injection [id number] No Inject 300 mg under the skin every 14 (fourteen) days. Historical Provider, 04/07/2025 Active fluticasone (Flonase) 50 mcg/actuation nasal spray [id number] Yes Administer 1 spray into each nostril two times daily. Shake gently. Before first use, prime pump. After use, clean tip and replace cap.Historical Provider, 04/18/2025 Bedtime Active fluticasone propion-salmeteroL (Advair Diskus) 500-50 mcg/dose diskus inhaler [id number] Yes Inhale 1puff two times daily. Historical ProviderMD 04/18/2025 Bedtime Active metoprolol succinate XL (Toprol-XL) 50 mg 24 hr tablet [id number] Yes Take 1 tablet (50 mg) by mouth once daily as directed. Do not crush or chew. Hay William MD 04/18/2025 Morning Active sacubitril-valsartan (Entresto) 97-103 mg tablet [id number] Yes Take 1 tablet by mouth two times daily. Hay William MD 04/18/2025 Bedtime Active spironolactone (Aldactone) 25 mg tablet [id number] Yes Take 1 tablet (25 mg) by [...] Radiology: Transthoracic echo (TTE) limited 1 1 [facility] Heart Station [address] [place] [address] (fax) Echocardiogram-[facility] Name: KRISTY DOHERTY Study Date: 04/30/2025 07:02 AM B/P: 121 mmHg/100 mmHg HR: 87 bpm Date of : 1955 Location: [facility] Height: 68 in. Age: 69 year(s) Patient [...] with the fellow Procedure Staff Reading Group: [facility] Referring Physician: RUDY KING Newsp[employer] Distributor Supervisor: June Brumfield RDCS, RVT, RN, BSN Ordering [...] hesitate to contact us for any questions/concerns. Weelainell continue to follow along with you. Igor Greene MD PGY 2 family and consumer education teacher [facility] nephrology Cosigned by Karina Amaya MD at [...] -- -- 87 16 97 % -- 04/30/251999 119/70 36.1 ??C (97 ??F) Axillary 89 [...] Value Ventricular Rate 120 Atrial Rate 120 HI Interval 198 QRS DURATION 102 QT Interval 294 QTC CALCULATION(BAZETT) 415 P Jarreau 64 R-Jarreau 38 T Wave Jarreau 116 Impression Sinus tachycardia Low voltage QRS Septal infarct , age undetermined Abnormal ECG When compared with ECG of 19-APR-2025 18:24, Premature ventricular complexes are no longer Present Confirmed by Jeffy VERNON, MITESH Pruett (57) on 04/23/2025 8:14:48 AM Lab Results Component Value Date TROPONINI 0.04 07/02/2022 Transthoracic echo (TTE) limited Result Date: 04/30/2025 1 1 [facility] Heart Station [address] [place] [address] [phone] (fax) Echocardiogram-[facility] Name: KRISTY DOHERTY Study Date: 04/30/2025 07:02 AM B/P: 121 mmHg/100 mmHg HR: 87 bpm Date of : 1955 Location:[facility] Height: 68 in. Age: 69 year(s) Patient [...] with the fellow Procedure Staff Reading Group: [facility] Referring Physician: RUDY KING [employer] Distributor Supervisor: June Brumfield RDCS,RVT, RN, BSN Ordering Physician: Wil Sotomayor MD Wall Motion Scores -1 - hyperkinesia, 0 - not evaluated, 1 - normal, 2 - hypokinesia, 3 - akinesia, 4 - dyskinesia Limited Echo (TTE) w/wo Limited Doppler, Color Flow, Imaging Agent, Strain, 3D, Bubble Study Result Date: 04/23/2025 1 1 [facility] Heart Station [address] [place] [address] [phone] (fax) Echocardiogram-[facility] Name: KRISTY DOHERTY Study Date: 04/23/2025 07:26 AM B/P: 90 mmHg/74 mmHg HR: 111 bpm Date of : 1955 Location: [facility] Height: 68 in. Age: 69 year(s) Patient [...] minimal pericardial effusion. Procedure Staff Reading Group: [facility] Referring Physician: RUDY KING Newsp[employer] Distributor Supervisor: June Brumfield RDCS, RVT, RN, BSN Ordering Physician: FANI DENNEY Wall Motion Scores -1 - hyperkinesia, 0 - not evaluated, 1 - normal, 2 - hypokinesia, 3 - akinesia, 4 - dyskinesia Transthoracic echo (TTE) limited Result Date: 04/20/2025 1 1 [facility] Heart Station [address] [place] [address] [phone] (fax) Echocardiogram-[facility] Name: KRISTY DOHERTY Study Date: 04/20/2025 01:28 PM B/P: 83 mmHg/58 mmHg HR: 96 bpm Date of : 1955 Location: [facility] Height: 68 in. Age: 69 year(s) Patient [...] No pericardial effusion. Procedure Staff Reading Group: [facility] Referring Physician:RUDY KING Newsp[employer] Distributor Supervisor: June Brumfield RDCS, RVT, RN, BSN Ordering Physician: VENU SAMANIEGO Wall Motion Scores -1 - hyperkinesia, 0 - not evaluated, 1 - normal, 2 - hypokinesia, 3 - akinesia, 4 - dyskinesia Transthoracic echo (TTE) limited Result Date: 04/19/2025 1 1 [facility] Heart Station [address] [place] [address] [phone] (fax) Echocardiogram-[facility] Name: KRISTY DOHERTY Study Date: 04/19/2025 02:13 PM B/P: / HR: Date of : 1955 Location: [facility] Height: 68 in. Age: 69 year(s) Patient Room: 3183 Weight: 182 lb. Gender: Male Patient Status: InPt BSA: 1.96 m2 Indication: pericardialeffusion, h/o 35mm Watchman FLX Examination: Limited Echo Image Quality: Fair Findings Pericardium: Moderate pericardial effusion baseline. Post pericardiocentesis there is minimal pericardial effusion. Procedure Staff Reading Group: [facility] Referring Physician: RUDY KING [employer] Distributor Supervisor: SAMI Starr, RDCS Ordering Physician: VENU SAMANIEGO Complete Echo (TTE) w/wo Imaging Agent, Strain, 3D, Bubble Study Result Date: 04/19/2025 1 1 [facility] Heart Station [address] [place] [address] [phone] (fax) Echocardiogram-[facility] Name: KRISTY DOHERTY Study Date: 04/19/2025 12:46 PM B/P: 97 mmHg/71 mmHg HR: Date of : 1955 Location: [facility] Height: 68 in. Age: 69 year(s) Patient [...] early tamponade physiology. Procedure Staff Reading Group: [facility] [employer] Supervisor: Bryanna Cazares RDCS Ordering Physician: HAKAN Canchola signed by MD Mitesh Vernon on 04/19/2025 at 01:44 PM Limited Transthoracic Echo (TTE) w/wo Contrast, Color Flow, Imaging Agent, Strain, 3D, Bubble Study Result Date: 02/07/2025 1 1 [facility] Heart Station [address] [place] [address] [phone] (fax) Echocardiogram-[facility] Name: KRISTY DOHERTY Study Date: 02/07/2025 08:02 AM B/P: 118 mmHg/85 mmHg HR: 63 bpm Date of : 1955 Location: [facility] Height: 68 in. Age: 69 year(s) Patient [...] No pericardial effusion. Procedure Staff Reading Group: [facility] Referring Physician: RUDY KING Newspaper Distributor Supervisor: SAMI Starr, RDCS Ordering Physician: CHUCK FUNEZ Transesophageal echo (MASON) Result Date: 12/01/2024 1 [facility] Heart Station [address] [place] [address] [phone] (fax) Transesophageal Echocardiogram-[facility] Name: KRISTY DOHERTY Study Date: 12/01/2024 12:00 PM B/P: 134 mmHg/87 mmHg HR: 80 bpm Date of : 1955 Location: [facility] Height: 68 in. Age: 69 year(s) Patient Room: Weight: 194 lb. Gender: Male PatientStatus: OutPt BSA: 2.02 m2 Indication: Atrial Fibrillation, Pre-Watchman Examination: MASON, Color flow imaging Image Quality: Excellent Patient Consent: Informed, written consent was obtained for the procedure Exam Location: A MASON was performed in the Nodulizer without complications Anesthesia Pharyngeal anesthesia with viscous [...] examination with the fellow Procedure Staff ReadingGroup: [facility] Group Referring Physician: RUDY KING Newspaper Distributor Supervisor: DORIAN Walker Ordering Physician: Hay William MD No nuclear medicine results found for the past 12 months Relevant Imaging Results Transthoracic echo (TTE) limited 1 [facility] Heart Station [address] [place] [address] [phone] (fax) Echocardiogram-[facility] Name: KRISTY DOHERTY Study Date: 04/30/2025 07:02 AM B/P: 121 mmHg/100 mmHg HR: 87 bpm Date of : 1955 Location: [facility] Height: 68 in. Age: 69 year(s) Patient [...] with the fellow Procedure Staff Reading Group: [facility] Referring Physician: RUDY KING Newspaper Distributor Supervisor: June Brumfield RDCS, RVT, RN, BSN Ordering [...] on telemetry, on amiodarone gtt Paroxysmal A-fib [id number] 3 (heart failure, hypertension, age 65-74) s/p [...] Felicita Mooney MD Internal medicine resident, PGY-2 [facility] Cosigned by Mitesh Vernon MD at [...] Do[facility] Age - 69 [facility] 1955 [id number] Date of Admission - 04/19/2025 10:46 AM HPI/Hospital Course Subjective Kristy Doherty is an 69 y.o. male who came from [place] with chest pain with radiation to neck andback. Past medical history of heart failure with reduced ejection fraction, hypertension, coronary artery disease, cardiomyopathy nonischemic (AICD placed), hyperlipidemia, atrial fibrillation statuspost Watchman , asthma. Patient presents from [place] with chest pain radiating to the neck [...] elevated wedge pressure and RV pressures. A Boston-Shannan catheter was placed for further monitoring and [...] Results from last 7 days Lab Units 05/01/2530404/30/250 04/29/25 0304 WBC AUTO 10*3/uL 7.39 8.77 [...] Radiology Transthoracic echo (TTE) limited 1 1 [facility] Heart Station [address] [place] [address] [phone] (fax) Echocardiogram-[facility] Name: KRISTY DOHERTY Study Date: 04/30/2025 07:02 AM B/P: 121 mmHg/100 mmHg HR: 87 bpm Date of : 1955 Location: [facility] Height: 68 in. Age: 69 year(s) Patient [...] with the fellow Procedure Staff Reading Group: [facility] Referring Physician: RUDY KING Newspaper Distributor Supervisor: June Brumfield RDCS, RVT, RN, BSN Ordering [...] on 04/20 due to resolution of effusion Boston Shannan placed on 04/24, has showed improvement [...] progress note was completed using a voice employment evaluator/case manager system. Every effort was made to ensure accuracy. However, inadvertent computerized employment evaluator/case manager errors may be present. Karsten Gage MD [...] an 69 y.o. male who came from [place] with chest pain with radiation to neck andback. Past medical history of heart failure with reduced ejection fraction, hypertension, coronary artery disease, cardiomyopathy nonischemic (AICD placed), hyperlipidemia, atrial fibrillation statuspost Watchroswell , asthma. Patient presents from [place] with chest pain radiating to the neck [...] elevated wedge pressure and RV pressures. A Boston-Shannan catheter was placed for further monitoring and [...] Radiology Transthoracic echo (TTE) limited 1 1 [facility] Heart Station [address] [id number] [phone] (fax) Echocardiogram-[facility] Name: KRISTY DOHERTY Study Date: 04/30/2025 07:02 AM B/P: 121 mmHg/100 mmHg HR: 87 bpm Date of : 1955 Location: [facility] Height: 68 in. Age: 69 year(s) Patient [...] with the fellow Procedure Staff Reading Group: [facility] Referring Physician: RUDY KING Newspaper Distributor Supervisor: June Brumfield RDCS, RVT, RN, BSN Ordering [...] on 04/20 due to resolution of effusion Boston Shannan placed on 04/24, has showed improvement [...] progress note was completed using a voice employment evaluator/case manager system. Every effort was made to ensure accuracy. However, inadvertent computerized employment evaluator/case manager errors may be present. Karsten Gage MD [...] Patient : Kristy Doherty; 69 y.o. Location: [address] [place] [address] Attending: Dg Power MD Admit Date: 04/19/2025 Hospital Day: 11 Reason for Consult: Severe LINDA in setting of Cardiogenic Shock Subjective: History of present illness: Kristy Doherty is a 69 y.o. male with PMHx significant for CAD, Atrial fibrillation s/p Watchman procedure, who was transferred from [place] with initial chief complaint of chest and [...] [P.O.:440; I.V.:8111.1 (100.3 mL/kg); IV Piggyback:350] Out: 42451 (167.1 mL/kg) [Urine:25 (0 mL/kg/hr); Other:68272] Weight: 80.9 kg Vital signs: Temperature: Temp: [...] Last Dose Status albuterol 90 mcg/actuation inhaler [id number] Inhale 1 puff 2 times daily. Historical Provider, Active allopurinol (Zyloprim) 300 mg tablet [id number] Yes Take 300 mg by mouth in the morning. Historical ProviderMD 04/18/2025 Morning Active amoxicillin (Amoxil) 500 mg tablet [id number] No Take 4 tablets (2,000 mg) by mouth 1 (one) time if needed (30-60 minute prior to dental procedures) for up to 20 doses. Patient not taking: Reported on 04/19/2025 Hay William MD Unknown Active aspirin 81 mg chewable tablet [id number] Yes Chew 1 tablet (81 mg) with breakfast. Hay William MD 04/18/2025 Morning Active atorvastatin (Lipitor) 40 mg tablet [id number] Yes Take 1 tablet (40 mg) by mouth at bedtime. Hay William MD 04/18/2025 Bedtime Active clopidogrel (Plavix) 75 mg tablet [id number] Yes Take 1 tablet (75 mg) by mouth in the morning. Hay William MD 04/18/2025 Morning Active dapagliflozin propanediol (Farxiga) 10 mg [id number] Yes Take 1 tablet (10 mg) by mouth once daily asdirected. Shania Chauhan CNP 04/18/2025 Morning Active Dupixent Syringe 300 mg/2 mL syringe injection [id number] No Inject 300 mg under the skin every 14 (fourteen) days. Historical ProviderMD 04/07/2025 Active fluticasone (Flonase) 50 mcg/actuation nasal spray [id number] Yes Administer 1 spray into each nostril two times daily. Shake gently. Before first use, prime pump. After use, clean tip and replace cap.German ProviderMD 04/18/2025 Bedtime Active fluticasone propion-salmeteroL (Advair Diskus) 500-50 mcg/dose diskus inhaler [id number] Yes Inhale 1puff two times daily. Historical ProviderMD 04/18/2025 Bedtime Active metoprolol succinate XL (Toprol-XL) 50 mg 24 hr tablet [id number] Yes Take 1 tablet (50 mg) by mouth once daily as directed. Do not crush or chew. Hay William MD 04/18/2025 Morning Active sacubitril-valsartan (Entresto) 97-103 mg tablet [id number] Yes Take 1 tablet by mouth two times daily. Hay William MD 04/18/2025 Bedtime Active spironolactone (Aldactone) 25 mg tablet [id number] Yes Take 1 tablet (25 mg) by [...] you. Igor Greene MD PGY 2 family and consumer education teacher [facility] nephrology Cosigned by Karina Amaya MD at [...] Value Ventricular Rate 120 Atrial Rate 120 HI Interval 198 QRS DURATION 102 QT Interval 294 QTC CALCULATION(BAZETT) 415 P Jarreau 64 R-Jarreau 38 T Wave Jarreau 116 Impression Sinus tachycardia Low voltage QRS [...] Bubble Study Result Date: 04/23/2025 1 1 [facility] Heart Station [address] [place] [address] (fax) Echocardiogram-[facility] Name: KRISTY DOHERTY Study Date: 04/23/2025 07:26 AM B/P: 90 mmHg/74 mmHg HR: 111 bpm Date of : 1955 Location: [facility] Height: 68 in. Age: 69 year(s) Patient [...] minimal pericardial effusion. Procedure Staff Reading Group: [facility] Referring Physician: RUDY KING Newspaper Distributor Supervisor: June Brumfield RDCS, RVT, RN, BSN Ordering Physician: FANI DENNEY Wall Motion Scores -1 - hyperkinesia, 0 - not evaluated, 1 - normal, 2 - hypokinesia, 3 - akinesia, 4 - dyskinesia Transthoracic echo (TTE) limited Result Date: 04/20/2025 1 1 [facility] Heart Station [address] [place] [address] [phone] (fax) Echocardiogram-[facility] Name: KRISTY DOHERTY Study Date: 04/20/2025 01:28 PM B/P: 83 mmHg/58 mmHg HR: 96 bpm Date of : 1955 Location: [facility] Height: 68 in. Age: 69 year(s) Patient Room: [facility] Weight: 179 lb. Gender: Male Patient Status: [...] No pericardial effusion. Procedure Staff Reading Group: [facility] Referring Physician:RUDY KING Newspaper Distributor Supervisor: June Brumfield RDCS, RVT, RN, BSN Ordering Physician: VENU SAMANIEGO Wall Motion Scores -1 - hyperkinesia, 0 - not evaluated, 1 - normal, 2 - hypokinesia, 3 - akinesia, 4 - dyskinesia Transthoracic echo (TTE) limited Result Date: 04/19/2025 1 1 [facility] Station [address] [place] [address] [phone] (fax) Echocardiogram-[facility] Name: KRISTY DOHERTY Study Date: 04/19/2025 02:13 PM B/P: / HR: Date of : 1955 Location: [facility] Height: 68 in. Age: 69 year(s) Patient Room: [facility] Weight: 182 lb. Gender: Male Patient Status: InPt BSA: 1.96 m2 Indication: pericardialeffusion, h/o 35mm Watchman FLX Examination: Limited Echo Image Quality: Fair Findings Pericardium: Moderate pericardial effusion baseline. Post pericardiocentesis there is minimal pericardial effusion. Procedure Staff Reading Group: [facility] Referring Physician: RUDY KING Newspaper Distributor Supervisor: SAMI Starr, RDROSALIO Ordering Physician: VENU SAMANIEGO Complete Echo (TTE) w/wo Imaging Agent, Strain, 3D, Bubble Study Result Date: 04/19/2025 1 1 [facility] V[facility] Heart Station [address] [place] [address] [phone] (fax) Echocardiogram-[facility] Name: KRISTY DOHERTY Study Date: 04/19/2025 12:46 PM B/P: 97 mmHg/71 mmHg HR: Date of : 1955 Location: [facility] Height: 68 in. Age: 69 year(s) Patient [...] early tamponade physiology. Procedure Staff Reading Group: [facility] [employer]ributor Supervisor: Bryanna Cazares RDCS Ordering Physician: HAKAN Canchola signed by MD Mitesh Vernon on 04/19/2025 at 01:44 PM Limited Transthoracic Echo (TTE) w/wo Contrast, Color Flow, Imaging Agent, Strain, 3D, Bubble Study Result Date: 02/07/2025 1 1 [facility] Heart Station [address] [facility] [place] [address] [phone] (fax) Echocardiogram-[facility] Name: KRISTY DOHERTY Study Date: 02/07/2025 08:02 AM B/P: 118 mmHg/85 mmHg HR: 63 bpm Date of : 1955 Location: [facility] Height: 68 in. Age: 69 year(s) Patient [...] No pericardial effusion. Procedure Staff Reading Group: [facility] Referring Physician: RUDY KING Newspaper Distributor Supervisor: June Andujar BS, RDCS Ordering Physician: CHUCK FUNEZ Transesophageal echo (MASON) Result Date: 12/01/2024 1 [facility] Heart Station [address] [place] [address] [phone] (fax) Transesophageal Echocardiogram-[facility] Name: KRISTY DOHERTY Study Date: 12/01/2024 12:00 PM B/P: 134 mmHg/87 mmHg HR: 80 bpm Date of : 1955 Location: [facility] Height: 68 in. Age: 69 year(s) Patient Room: Weight: 194 lb. Gender: Male PatientStatus: OutPt BSA: 2.02 m2 Indication: Atrial Fibrillation, Pre-Watchman Examination: MASON, Color flow imaging Image Quality: Excellent Patient Consent: Informed, written consent was obtained for the procedure Exam Location: A MASON was performed in the Nodulizer without complications Anesthesia Pharyngeal anesthesia with viscous [...] examination with the fellow Procedure Staff ReadingGroup: [facility] Referring Physician: RUDY KING Newspaper Distributor Supervisor: DORIAN Walker Ordering Physician: Hay William MD [...] on telemetry, on amiodarone gtt Paroxysmal A-fib [id number] 3 (heart failure, hypertension, age 65-74) s/p [...] Felicita Mooney MD Internal medicine resident, PGY-2 [facility] Cosigned by Mitesh Vernon MD at [...] personal documentation from me. * Chely Garcia, JAYSON - 04/30/2025 8:14 AM EDT Respiratory Progress [...] s/p Watchman procedure, who was transferred from [place] [address] with initial chief complaint of chest and [...] Last Dose Status albuterol 90 mcg/actuation inhaler [id number] Inhale 1 puff 2 times daily. Historical ProviderMD Active allopurinol (Zyloprim) 300 mg tablet [id number] Yes Take 300 mg by mouth in the morning. German Walden MD 04/18/2025 Morning Active amoxicillin (Amoxil) 500 mg tablet [id number] No Take 4 tablets (2,000 mg) by mouth 1 (one) time if needed (30-60 minute prior to dental procedures) for up to 20 doses. Patient not taking: Reported on 04/19/2025 Hay William MD Unknown Active aspirin 81 mg chewable tablet [id number] Yes Chew 1 tablet (81 mg) with breakfast. Hay William MD 04/18/2025 Morning Active atorvastatin (Lipitor) 40 mg tablet [id number] Yes Take 1 tablet (40 mg) by mouth at bedtime. Hay William MD 04/18/2025 Bedtime Active clopidogrel (Plavix) 75 mg tablet [id number] Yes Take 1 tablet (75 mg) by mouth in the morning. Hay William MD 04/18/2025 Morning Active dapagliflozin propanediol (Farxiga) 10 mg [id number] Yes Take 1 tablet (10 mg) by mouth once daily asdirected. Shania Chauhan CNP 04/18/2025 Morning Active Dupixent Syringe 300 mg/2 mL syringe injection [id number] No Inject 300 mg under the skin every 14 (fourteen) days. German Walden MD 04/07/2025 Active fluticasone (Flonase) 50 mcg/actuation nasal spray [id number] Yes Administer 1 spray into each nostril two times daily. Shake gently. Before first use, prime pump. After use, clean tip and replace cap.German Walden MD 04/18/2025 Bedtime Active fluticasone propion-salmeteroL (Advair Diskus) 500-50 mcg/dose diskus inhaler [id number] Yes Inhale 1puff two times daily. German Walden MD 04/18/2025 Bedtime Active metoprolol succinate XL (Toprol-XL) 50 mg 24 hr tablet [id number] Yes Take 1 tablet (50 mg) by mouth once daily as directed. Do not crush or chew. Hay William MD 04/18/2025 Morning Active sacubitril-valsartan (Entresto) 97-103 mg tablet [id number] Yes Take 1 tablet by mouth two times daily. Hay William MD 04/18/2025 Bedtime Active spironolactone (Aldactone) 25 mg tablet [id number] Yes Take 1 tablet (25 mg) by [...] receiving CRRT / CVVHD * Darcy Alfredo, NASIR - 04/29/2025 8:16 AM EDT Respiratory Progress [...] an 69 y.o. male who came from [place] with chest pain with radiation to neck andback. Past medical history of heart failure with reduced ejection fraction, hypertension, coronary artery disease, cardiomyopathy nonischemic (AICD placed), hyperlipidemia, atrial fibrillation statuspost Watchroswell , asthma. Patient presents from [place] with chest pain radiating to the neck [...] elevated wedge pressure and RV pressures. A Boston-Shannan catheter was placed for further monitoring and the patient was transferred to the medical ICU. SUBJECTIVE Patient seen and examined the bedside this morning. He does endorse a new wet cough with pleuritic chest pain when he coughs. Chest x-ray and Mucinex ordered. His hematoma on the right side of his neck where the Boston catheter was placed is improving. Remains on [...] on 04/20 due to resolution of effusion Boston Shannan placed on 04/24, has showed improvement [...] progress note was completed using a voice employment evaluator/case manager system. Every effort was made to ensure accuracy. However, inadvertent computerized employment evaluator/case manager errors may be present. Karsten Gage MD [...] -- -- 87 22 98 % -- 04/28/251999 36.2 ??C (97.2 ??F) Axillary 88 20 [...] Value Ventricular Rate 120 Atrial Rate 120 HI Interval 198 QRS DURATION 102 QT Interval 294 QTC CALCULATION(BAZETT) 415 P Jarreau 64 R-Jarreau 38 T Wave Jarreau 116 Impression Sinus tachycardia Low voltage QRS [...] Bubble Study Result Date: 04/23/2025 1 1 [facility] Heart Station [address] [place] [address] [phone] (fax) Echocardiogram-[facility] Name: KRISTY DOHERTY Study Date: 04/23/2025 07:26 AM B/P: 90 mmHg/74 mmHg HR: 111 bpm Date of : 1955 Location: [facility] Height: 68 in. Age: 69 year(s) Patient [...] minimal pericardial effusion. Procedure Staff Reading Group: [facility] Referring Physician: RUDY KING Newspaper Distributor Supervisor: June Brumfield RDCS, RVT, RN, BSN Ordering Physician: FANI DENNEY Wall Motion Scores -1 - hyperkinesia, 0 - not evaluated, 1 - normal, 2 - hypokinesia, 3 - akinesia, 4 - dyskinesia Transthoracic echo (TTE) limited Result Date: 04/20/2025 1 1 [facility] Heart Station [address] [place] [address] [phone] (fax) Echocardiogram-[facility] Name: KRISTY DOHERTY Study Date: 04/20/2025 01:28 PM B/P: 83 mmHg/58 mmHg HR: 96 bpm Date of : 1955 Location: [facility] Height: 68 in. Age: 69 year(s) Patient [...] No pericardial effusion. Procedure Staff Reading Group: [facility] Referring Physician:RUDY KING Newspaper Distributor Supervisor: June Brumfield RDCS, RVT, RN, BSN Ordering Physician: VENU SAMANIEGO Wall Motion Scores -1 - hyperkinesia, 0 - not evaluated, 1 - normal, 2 - hypokinesia, 3 - akinesia, 4 - dyskinesia Transthoracic echo (TTE) limited Result Date: 04/19/2025 1 1 [facility] Heart Station [address] [place] [address] [phone] (fax) Echocardiogram-[facility] Name: KRISTY DOHERTY Study Date: 04/19/2025 02:13 PM B/P: / HR: Date of : 1955 Location: [facility] Height: 68 in. Age: 69 year(s) Patient Room: 3183 Weight: 182 lb. Gender: Male Patient Status: InPt BSA: 1.96 m2 Indication: pericardialeffusion, h/o 35mm Watchman FLX Examination: Limited Echo Image Quality: Fair Findings Pericardium: Moderate pericardial effusion baseline. Post pericardiocentesis there is minimal pericardial effusion. Procedure Staff Reading Group: [facility] Referring Physician: RUDY KING Newspaper Distributor Supervisor: SAMI Starr, RDCS Ordering Physician: VENU SAMANIEGO Complete Echo (TTE) w/wo Imaging Agent, Strain, 3D, Bubble Study Result Date: 04/19/2025 1 1 [facility] [address] [place] [address] [phone] (fax) Echocardiogram-[facility] Name: KRISTY DOHERTY Study Date: 04/19/2025 12:46 PM B/P: 97 mmHg/71 mmHg HR: Date of : 1955 Location: [facility] Height: 68 in. Age: 69 year(s) Patient [...] early tamponade physiology. Procedure Staff Reading Group: [facility] [employer] Supervisor: Bryanna Cazares RDCS Ordering Physician: HAKAN Moodytronically signed by MD Mitesh Vernon on 04/19/2025 at 01:44 PM Limited Transthoracic Echo (TTE) w/wo Contrast, Color Flow, Imaging Agent, Strain, 3D, Bubble Study Result Date: 02/07/2025 1 1 [facility] Heart Station [address] [place] [address] [phone] (fax) Echocardiogram-[facility] Name: KRISTY DOHERTY Study Date: 02/07/2025 08:02 AM B/P: 118 mmHg/85 mmHg HR: 63 bpm Date of : 1955 Location: [facility] Height: 68 in. Age: 69 year(s) Patient [...] No pericardial effusion. Procedure Staff Reading Group: [facility] Referring Physician: RUDY KING Newspaper Distributor Supervisor: SAMI Starr, RDCS Ordering Physician: CHUCK FUNEZ Transesophageal echo (MASON) Result Date: 12/01/2024 1 [facility] Heart Station [address] [place] [address] [phone] (fax) Transesophageal Echocardiogram-[facility] Name: KRISTY DOHERTY Study Date: 12/01/2024 12:00 PM B/P: 134 mmHg/87 mmHg HR: 80 bpm Date of : 1955 Location: [facility] Height: 68 in. Age: 69 year(s) Patient Room: Weight: 194 lb. Gender: Male PatientStatus: OutPt BSA: 2.02 m2 Indication: Atrial Fibrillation, Pre-Watchman Examination: MASON, Color flow imaging Image Quality: Excellent Patient Consent: Informed, written consent was obtained for the procedure Exam Location: A MASON was performed in the Nodulizer without complications Anesthesia Pharyngeal anesthesia with viscous [...] examination with the fellow Procedure Staff ReadingGroup: [facility] Referring Physician: RUDY KING Newspaper Distributor Supervisor: DORIAN Walker Ordering Physician: Hay William MD [...] on telemetry, on amiodarone gtt Paroxysmal A-fib [id number] 3 (heart failure, hypertension, age 65-74) s/p [...] questions. Sagrario Martel MD Cardiovascular disease fellow [facility] Cosigned by Wil Sotomayor MD at [...] Value Ventricular Rate 120 Atrial Rate 120 HI Interval 198 QRS DURATION 102 QT Interval 294 QTC CALCULATION(BAZETT) 415 P Jarreau 64 R-Jarreau 38 T Wave Jarreau 116 Impression Sinus tachycardia Low voltage QRS [...] Bubble Study Result Date: 04/23/2025 1 1 [facility] Heart Station [address] [facility] [place] [place] [address] [phone] (fax) Echocardiogram-[facility] Name: KRISTY DOHERTY Study Date: 04/23/2025 07:26 AM B/P: 90 mmHg/74 mmHg HR: 111 bpm Date of : 1955 Location: [facility] Height: 68 in. Age: 69 year(s) Patient [...] minimal pericardial effusion. Procedure Staff Reading Group: [facility] Referring Physician: RUDY KING Newspaper Distributor Supervisor: June Brumfield RDCS, RVT, RN, BSN Ordering Physician: FANI DENNEY Wall Motion Scores -1 - hyperkinesia, 0 - not evaluated, 1 - normal, 2 - hypokinesia, 3 - akinesia, 4 - dyskinesia Transthoracic echo (TTE) limited Result Date: 04/20/2025 1 1 [facility] Heart Station [address] [address] [phone] (fax) Echocardiogram-[facility] Name: KRISTY DOHERTY Study Date: 04/20/2025 01:28 PM B/P: 83 mmHg/58 mmHg HR: 96 bpm Date of : 1955 Location: [facility] Height: 68 in. Age: 69 year(s) Patient [...] No pericardial effusion. Procedure Staff Reading Group: [facility] Referring Physician:RUDY KING Newspaper Distributor Supervisor: June Brumfield RDCS, RVT, RN, BSN Ordering Physician: VENU SAMANIEGO Wall Motion Scores -1 - hyperkinesia, 0 - not evaluated, 1 - normal, 2 - hypokinesia, 3 - akinesia, 4 - dyskinesia Transthoracic echo (TTE) limited Result Date: 04/19/2025 1 1 [facility] Heart Station [address] [place] [address] [phone] (fax) Echocardiogram-[facility] Name: KRISTY DOHERTY Study Date: 04/19/2025 02:13 PM B/P: / HR: Date of : 1955 [facility] [facility] Height: 68 in. Age: 69 year(s) Patient Room: [facility] Weight: 182 lb. Gender: Male Patient Status: InPt BSA: 1.96 m2 Indication: pericardialeffusion, h/o 35mm Watchman FLX Examination: Limited Echo Image Quality: Fair Findings Pericardium: Moderate pericardial effusion baseline. Post pericardiocentesis there is minimal pericardial effusion. Procedure Staff Reading Group: [facility] Referring Physician: RUDY KING Newspaper Distributor Supervisor: SAMI Starr, RDCS Ordering Physician: VENU SAMANIEGO Complete Echo (TTE) w/wo Imaging Agent, Strain, 3D, Bubble Study Result Date: 04/19/2025 1 1 [facility] Heart Station [address] [place] [address] [phone] (fax) Echocardiogram-[facility] Name: KRISTY DOHERTY Study Date: 04/19/2025 12:46 PM B/P: 97 mmHg/71 mmHg HR: Date of : 1955 Location: [facility] Height: 68 in. Age: 69 year(s) Patient [...] early tamponade physiology. Procedure Staff Reading Group: [facility] [employer] Supervisor: Bryanna Cazares RDCS Ordering Physician: HAKAN Canchola signed by MD Mitesh Vernon on 04/19/2025 at 01:44 PM Limited Transthoracic Echo (TTE) w/wo Contrast, Color Flow, Imaging Agent, Strain, 3D, Bubble Study Result Date: 02/07/2025 1 1 [facility] Heart Station [address] [facility] [place] [place] [address] [phone] (fax) E[facility]ocardiogram-[facility] Name: KRISTY DOHERTY Study Date: 02/07/2025 08:02 AM B/P: 118 mmHg/85 mmHg HR: 63 bpm Date of : 1955 Location: [facility] Height: 68 in. Age: 69 year(s) Patient [...] No pericardial effusion. Procedure Staff Reading Group: [facility] Referring Physician: RUDY KING Newspaper Distributor Supervisor: SAMI Starr, RDCS Ordering Physician: CHUCK FUNEZ Transesophageal echo (MASON) Result Date: 12/01/2024 1 [facility] Heart Station [address] [id number] [phone] (fax) Transesophageal Echocardiogram-[facility] Name: KRISTY DOHERTY Study Date: 12/01/2024 12:00 PM B/P: 134 mmHg/87 mmHg HR: 80 bpm Date of : 1955 Location: [facility] Height: 68 in. Age: 69 year(s) Patient Room: Weight: 194 lb. Gender: Male PatientStatus: OutPt BSA: 2.02 m2 Indication: Atrial Fibrillation, Pre-Watchman Examination: MASON, Color flow imaging Image Quality: Excellent Patient Consent: Informed, written consent was obtained for the procedure Exam Location: A MASON was performed in the Nodulizer without complications Anesthesia Pharyngeal anesthesia with viscous [...] examination with the fellow Procedure Staff ReadingGroup: [facility] Referring Physician: RUDY KING Newspaper Distributor Supervisor: DORIAN Walker Ordering Physician: Hay William MD [...] on telemetry, on amiodarone gtt Paroxysmal A-fib [id number] 3 (heart failure, hypertension, age 65-74) s/p [...] questions. Sagrario Martel MD Cardiovascular disease fellow [facility] Cosigned by Wil Sotomayor MD at 04/29/2025 3:53 PM EDT * Darcy Alfredo, TRAFFIC RATE CLERK - 04/28/2025 9:05 AM EDT Respiratory Progress [...] s/p Watchman procedure, who was transferred from [address] with initial chief complaint of chest and [...] Last Dose Status albuterol 90 mcg/actuation inhaler [id number] Inhale 1 puff 2 times daily. Historical ProviderMD Active allopurinol (Zyloprim) 300 mg tablet [id number] Yes Take 300 mg by mouth in the morning. German ProviderMD 04/18/2025 Morning Active amoxicillin (Amoxil) 500 mg tablet [id number] No Take 4 tablets (2,000 mg) by mouth 1 (one) time if needed (30-60 minute prior to dental procedures) for up to 20 doses. Patient not taking: Reported on 04/19/2025 Hay William MD Unknown Active aspirin 81 mg chewable tablet [id number] Yes Chew 1 tablet (81 mg) with breakfast. Hay William MD 04/18/2025 Morning Active atorvastatin (Lipitor) 40 mg tablet [id number] Yes Take 1 tablet (40 mg) by mouth at bedtime. Hay William MD 04/18/2025 Bedtime Active clopidogrel (Plavix) 75 mg tablet [id number] Yes Take 1 tablet (75 mg) by mouth in the morning. Hay William MD 04/18/2025 Morning Active dapagliflozin propanediol (Farxiga) 10 mg [id number] Yes Take 1 tablet (10 mg) by mouth once daily asdirected. Shania Chauhan CNP 04/18/2025 Morning Active Dupixent Syringe 300 mg/2 mL syringe injection [id number] No Inject 300 mg under the skin every 14 (fourteen) days. Historical ProviderMD 04/07/2025 Active fluticasone (Flonase) 50 mcg/actuation nasal spray [id number] Yes Administer 1 spray into each nostril two times daily. Shake gently. Before first use, prime pump. After use, clean tip and replace cap.Historical ProviderMD 04/18/2025 Bedtime Active fluticasone propion-salmeteroL (Advair Diskus) 500-50 mcg/dose diskus inhaler [id number] Yes Inhale 1puff two times daily. Historical ProviderMD 04/18/2025 Bedtime Active metoprolol succinate XL (Toprol-XL) 50 mg 24 hr tablet [id number] Yes Take 1 tablet (50 mg) by mouth once daily as directed. Do not crush or chew. Hay William MD 04/18/2025 Morning Active sacubitril-valsartan (Entresto) 97-103 mg tablet [id number] Yes Take 1 tablet by mouth two times daily. Hay William MD 04/18/2025 Bedtime Active spironolactone (Aldactone) 25 mg tablet [id number] Yes Take 1 tablet (25 mg) by [...] Doherty Age - 69 y.o. - 1955 [facility] # - [id number] Date of Admission - 04/19/2025 10:46 AM HPI/Hospital Course Subjective Kristy Doherty is an 69 y.o. male who came from [place] with chest pain with radiation to neck andback. Past medical history of heart failure with reduced ejection fraction, hypertension, coronary artery disease, cardiomyopathy nonischemic (AICD placed), hyperlipidemia, atrial fibrillation statuspost Watchroswell , asthma. Patient presents from [place] [address] with chest pain radiating to the neck [...] potential atelectasis versus pneumonia. He also had asodium of 123. His troponins were downtrending and [...] elevated wedge pressure and RV pressures. A Boston-Shannan catheter was placed for further monitoring and [...] last 7 days Lab Units 04/28/25 0321 04/27/25195604/27/25 0536 04/26/25 0305 WBC AUTO 10*3/uL 19.72* [...] on 04/20 due to resolution of effusion Boston Shannan placed on 04/24, has showed improvement [...] progress note was completed using a voice employment evaluator/case manager system. Every effort was made to ensure accuracy. However, inadvertent computerized employment evaluator/case manager errors may be present. Marta Rene DO [...] down on Levophed. Maintain MAP above 65. Boston was taken out yesterday. Cardiorenal syndrome with [...] Patient : Kristy Doherty; 69 y.o. Location: [id number] Attending: Pepe Anthony MD Admit Date: 04/19/2025 Hospital Day: 8 Reason for Consult: Acute Kidney Injury. History of Present Illness: Kristy Doherty is a 69 y.o. male with PMHx significant for CAD, Atrial fibrillation s/p Watchman procedure, who was transferred from [place] [address] with initial chief complaint of chest and [...] Last Dose Status albuterol 90 mcg/actuation inhaler [id number] Inhale 1 puff 2 times daily. Historical Provider, Active allopurinol (Zyloprim) 300 mg tablet [id number] Yes Take 300 mg by mouth in the morning. Historical ProviderMD 04/18/2025 Morning Active amoxicillin (Amoxil) 500 mg tablet [id number] No Take 4 tablets (2,000 mg) by mouth 1 (one) time if needed (30-60 minute prior to dental procedures) for up to 20 doses. Patient not taking: Reported on 04/19/2025 Hay William MD Unknown Active aspirin 81 mg chewable tablet [id number] Yes Chew 1 tablet (81 mg) with breakfast. Hay William MD 04/18/2025 Morning Active atorvastatin (Lipitor) 40 mg tablet [id number] Yes Take 1 tablet (40 mg) by mouth at bedtime. Hay William MD 04/18/2025 Bedtime Active clopidogrel (Plavix) 75 mg tablet [id number] Yes Take 1 tablet (75 mg) by mouth in the morning. Hay William MD 04/18/2025 Morning Active dapagliflozin propanediol (Farxiga) 10 mg [id number] Yes Take 1 tablet (10 mg) by mouth once daily asdirected. Shania Chauhan CNP 04/18/2025 Morning Active Dupixent Syringe 300 mg/2 mL syringe injection [id number] No Inject 300 mg under the skin every 14 (fourteen) days. Historical Provider, 04/07/2025 Active fluticasone (Flonase) 50 mcg/actuation nasal spray [id number] Yes Administer 1 spray into each nostril two times daily. Shake gently. Before first use, prime pump. After use, clean tip and replace cap.Historical Provider, 04/18/2025 Bedtime Active fluticasone propion-salmeteroL (Advair Diskus) 500-50 mcg/dose diskus inhaler [id number] Yes Inhale 1puff two times daily. Historical ProviderMD 04/18/2025 Bedtime Active metoprolol succinate XL (Toprol-XL) 50 mg 24 hr tablet [id number] Yes Take 1 tablet (50 mg) by mouth once daily as directed. Do not crush or chew. Hay William MD 04/18/2025 Morning Active sacubitril-valsartan (Entresto) 97-103 mg tablet [id number] Yes Take 1 tablet by mouth two times daily. Hay William MD 04/18/2025 Bedtime Active spironolactone (Aldactone) 25 mg tablet [id number] Yes Take 1 tablet (25 mg) by [...] Date Asthma 07/29/2012 CHF (congestive heart failure) ([facility]/HCC) Coronary artery disease History of malignant neoplasm [...] VIEW - Impression - Tip of the Boston-Shannan catheter appears to be in the right [...] Approved by:Benedict Katz04/23/2025 5:40 PM. I, Howie Ron,have reviewed the image(s) and agree with the [...] follow along with you. Hakan Dugan, MS3 [facility] Nephrology As the teaching physician, I [...] Faculty, Division of Nephrology, Department of Medicine, [facility] [employer]. * [...] elevated wedge pressure and RV pressures. A Boston-Shannan catheter was placed for further monitoring andthe [...] & Lasix gtt (40 mg/hr). SG Readings: Boston malfunction, tentatively planning swanremoval. 880 ml UOP [...] Value Ventricular Rate 120 Atrial Rate 120 HI Interval 198 QRS DURATION 102 QT Interval 294 QTC CALCULATION(BAZETT) 415 P Jarreau 64 R-Jarreau 38 T Wave Jarreau 116 Impression Sinus tachycardia Low voltage QRS [...] Bubble Study Result Date: 04/23/2025 1 1 [facility] Heart Station [address] [place] [address] (fax) Echocardiogram-[facility] Name: KRISTY DOHERTY Study Date: 04/23/2025 07:26 AM B/P: 90 mmHg/74 mmHg HR: 111 bpm Date of : 1955 Location: [facility] Height: 68 in. Age: 69 year(s) Patient [...] minimal pericardial effusion. Procedure Staff Reading Group: [facility] Referring Physician: RUDY KING Newspaper Distributor Supervisor: June Brumfield RDCS, RVT, RN, BSN Ordering Physician: FANI DENNEY Wall Motion Scores -1 - hyperkinesia, 0 - not evaluated, 1 - normal, 2 - hypokinesia, 3 - akinesia, 4 - dyskinesia Transthoracic echo (TTE) limited Result Date: 04/20/2025 1 1 [facility] Heart Station [address] [place] [address] [phone] (fax) Echocardiogram-[facility] Name: KRISTY DOHERTY Study Date: 04/20/2025 01:28 PM B/P: 83 mmHg/58 mmHg HR: 96 bpm Date of : 1955 Location: [facility] Height: 68 in. Age: 69 year(s) Patient [...] No pericardial effusion. Procedure Staff Reading Group: [facility] Referring Physician:RUDY KING Newspaper Distributor Supervisor: June Brumfield RDCS, RVT, RN, BSN Ordering Physician: VENU SAMANIEGO Wall Motion Scores -1 - hyperkinesia, 0 - not evaluated, 1 - normal, 2 - hypokinesia, 3 - akinesia, 4 - dyskinesia Transthoracic echo (TTE) limited Result Date: 04/19/2025 1 1 [facility] Heart Station [address] [place] [address] [phone] (fax) E[facility]ocardiogram-[facility] Name: KRISTY DOHERTY Study Date: 04/19/2025 02:13 PM B/P: / HR: Date of : 1955 Location: [facility] Height: 68 in. Age: 69 year(s) Patient Room: 3183 Weight: 182 lb. Gender: Male Patient Status: InPt BSA: 1.96 m2 Indication: pericardialeffusion, h/o 35mm Watchman FLX Examination: Limited Echo Image Quality: Fair Findings Pericardium: Moderate pericardial effusion baseline. Post pericardiocentesis there is minimal pericardial effusion. Procedure Staff Reading Group: [facility] Referring Physician: RUDY KING Newspaper Distributor Supervisor: SAMI Starr, RDCS Ordering Physician: VENU SAMANIEGO Complete Echo (TTE) w/wo Imaging Agent, Strain, 3D, Bubble Study Result Date: 04/19/2025 1 1 [facility] Heart Station [address] [place] [address] [phone] (fax) Echocardiogram-[facility] Name: KRISTY DOHERTY Study Date: 04/19/2025 12:46 PM B/P: 97 mmHg/71 mmHg HR: Date of : 1955 Location: [facility] Height: 68 in. Age: 69 year(s) Patient [...] early tamponade physiology. Procedure Staff Reading Group: [facility] [employer]ributor Supervisor: Bryanna Cazares RDCS Ordering Physician: HAKAN Duongally signed by MD Mitesh Vernon on 04/19/2025 at 01:44 PM Limited Transthoracic Echo (TTE) w/wo Contrast, Color Flow, Imaging Agent, Strain, 3D, Bubble Study Result Date: 02/07/2025 1 1 [facility] Heart Station [address] [place] [address] [phone] (fax) Echocardiogram-[facility] Name: KRISTY DOHERTY Study Date: 02/07/2025 08:02 AM B/P: 118 mmHg/85 mmHg HR: 63 bpm Date of : 1955 Location: [facility] Height: 68 in. Age: 69 year(s) Patient Room: [facility] Weight: 186 lb. Gender: Male Patient Status: [...] No pericardial effusion. Procedure Staff Reading Group: [facility] Referring Physician: RUDY KING Newspaper Distributor Supervisor: SAMI Starr, RDCS Ordering Physician: CHUCK FUNEZ Transesophageal echo (MASON) Result Date: 12/01/2024 1 [facility] Heart Station [address] [place] [address] [phone] (fax) Transesophageal Echocardiogram-[facility] Name: KRISTY DOHERTY Study Date: 12/01/2024 12:00 PM B/P: 134 mmHg/87 mmHg HR: 80 bpm Date of : 1955 Location: [facility] Height: 68 in. Age: 69 year(s) Patient Room: Weight: 194 lb. Gender: Male PatientStatus: OutPt BSA: 2.02 m2 Indication: Atrial Fibrillation, Pre-Watchman Examination: MASON, Color flow imaging Image Quality: Excellent Patient Consent: Informed, written consent was obtained for the procedure Exam Location: A MASON was performed in the Nodulizer without complications Anesthesia Pharyngeal anesthesia with viscous [...] examination with the fellow Procedure Staff ReadingGroup: [facility] Referring Physician: RUDY KING Newspaper Distributor Supervisor: DORIAN Walker Ordering Physician: Hay William MD [...] Performed: Right heart catheterization. Placement of a DIRECTOR OF DIGITAL MARKETING Boston-Shannan catheter for hemodynamic monitoring. Access into the right internal jugular vein under ultrasound guidance. Methods: Procedure was explained to the patient with risks and benefits; he signed informed consent. he was brought to the microbiology lab analyst in a fasting state. The right neck area was prepped and draped in usual fashion. Micropuncture technique was used for access under ultrasound guidance into the right internal jugular vein. A 6-American x 11 cm sheath was placed. A 6-American Carrasquillo catheter was used for right heart catheterization and measurement of pressures and calculation of cardiac output using the estimated [place] method. Carrasquillo catheter was removed. Over a wire to the access sheath was upsized to a 9 American introducer sheath. A DIRECTOR OF DIGITAL MARKETING Boston-Shannan catheter was advanced with the aid of a V18 wire and the distal end of the catheter was advanced to the distal segment of the right pulmonary artery. The Boston-Shannan catheter was secured in place. he tolerated [...] with biventricular failure. Successful placement of a DIRECTOR OF DIGITAL MARKETING Boston-Shannan catheter to guide management of heart failure. [...] on telemetry, on amiodarone gtt Paroxysmal A-fib [id number] 3 (heart failure, hypertension, age 65-74) s/p [...] hrs while on Lasix drip. Nephrology considering TRAFFIC RATE CLERK if kidneyfunction continues to decline. Aggressive electrolyte [...] call with any questions. Mode Franco, PGY2 [facility] Cosigned by Bebo Dominguez MD at 04/27/2025 [...] the left femoral vein andthe right IJ Boston-Shannan catheter was removed and manual pressure applied [...] an 69 y.o. male who came from [place] [address] with chest pain with radiation to neck andback. Past medical history of heart failure with reduced ejection fraction, hypertension, coronary artery disease, cardiomyopathy nonischemic (AICD placed), hyperlipidemia, atrial fibrillation statuspost Watchman , asthma. Patient presents from [place] [address] with chest pain radiating to the neck [...] elevated wedge pressure and RV pressures. A Boston-Shannan catheter was placed for further monitoring and the patient was transferred to the medical ICU. SUBJECTIVE Patient seen and examined at the bedside. He denies any chest pain, shortness of breath, or cough. He does endorse new right neck swelling where Boston cath is placed. Continuing pressor support and [...] Performed: Right heart catheterization. Placement of a DIRECTOR OF DIGITAL MARKETING Boston-Shannan catheter for hemodynamic monitoring. Access into the right internal jugular vein under ultrasound guidance. Methods: Procedure was explained to the patient with risks and benefits; he signed informed consent. he was brought to the microbiology lab analyst in a fasting state. The right neck area was prepped and draped in usual fashion. Micropuncture technique was used for access under ultrasound guidance into the right internal jugular vein. A 6-American x 11 cm sheath was placed. A 6-American Carrasquillo catheter was used for right heart catheterization and measurement of pressures and calculation of cardiac output using the estimated [place] method. Carrasquillo catheter was removed. Over a wire to the access sheath was upsized to a 9 American introducer sheath. A DIRECTOR OF DIGITAL MARKETING Boston-Shannan catheter was advanced with the aid of a V18 wire and the distal end of the catheter was advanced to the distal segment of the right pulmonary artery. The Boston-Shannan catheter was secured in place. he tolerated [...] with biventricular failure. Successful placement of a DIRECTOR OF DIGITAL MARKETING Boston-Shannan catheter to guide management of heart failure. [...] on 04/20 due to resolution of effusion Boston Shannan placed on 04/24, has showed improvement in CO and CI PA 38/24 PCWP 21 CO 4.2, CI 3.5 Melanie 0.72 Patient is currently on Dobutamine and levophed Added on hydrocortisone Previous Lasix challenges have not produced adequate urine, have started Lasix drip per nephrology Will restart GDMT as appropriate once stable Appreciate cardiology input Has swelling on side of Boston catheter, discussing with cardiology on pulling it [...] support: Dobutamine, levophed Lines (location & placement): Boston Shannan DVT prophylaxis: Heparin subq Diet: Regular Code Status: FULL This progress note was completed using a voice employment evaluator/case manager system. Every effort was made to ensure accuracy. However, inadvertent computerized employment evaluator/case manager errors may be present. Karsten Gage MD [...] with nephrology and cardiology on the floor. Boston is dysfunctional, and noted to have hematoma at insertion site, we will remove the Boston catheter. Insert hemodialysis catheter on left IJ. [...] s/p Watchman procedure, who was transferred from [place] [address] with initial chief complaint of chest and [...] Last Dose Status albuterol 90 mcg/actuation inhaler [id number] Inhale 1 puff 2 times daily. Historical ProviderMD Active allopurinol (Zyloprim) 300 mg tablet [id number] Yes Take 300 mg by mouth in the morning. German Walden MD 04/18/2025 Morning Active amoxicillin (Amoxil) 500 mg tablet [id number] No Take 4 tablets (2,000 mg) by mouth 1 (one) time if needed (30-60 minute prior to dental procedures) for up to 20 doses. Patient not taking: Reported on 04/19/2025 Hay William MD Unknown Active aspirin 81 mg chewable tablet [id number] Yes Chew 1 tablet (81 mg) with breakfast. Hay William MD 04/18/2025 Morning Active atorvastatin (Lipitor) 40 mg tablet [id number] Yes Take 1 tablet (40 mg) by mouth at bedtime. Hay William MD 04/18/2025 Bedtime Active clopidogrel (Plavix) 75 mg tablet [id number] Yes Take 1 tablet (75 mg) by mouth in the morning. Hay William MD 04/18/2025 Morning Active dapagliflozin propanediol (Farxiga) 10 mg [id number] Yes Take 1 tablet (10 mg) by mouth once daily asdirected. Shania Chauhan CNP 04/18/2025 Morning Active Dupixent Syringe 300 mg/2 mL syringe injection [id number] No Inject 300 mg under the skin every 14 (fourteen) days. German Walden MD 04/07/2025 Active fluticasone (Flonase) 50 mcg/actuation nasal spray [id number] Yes Administer 1 spray into each nostril two times daily. Shake gently. Before first use, prime pump. After use, clean tip and replace cap.German Walden MD 04/18/2025 Bedtime Active fluticasone propion-salmeteroL (Advair Diskus) 500-50 mcg/dose diskus inhaler [id number] Yes Inhale 1puff two times daily. German Walden MD 04/18/2025 Bedtime Active metoprolol succinate XL (Toprol-XL) 50 mg 24 hr tablet [id number] Yes Take 1 tablet (50 mg) by mouth once daily as directed. Do not crush or chew. Hay William MD 04/18/2025 Morning Active sacubitril-valsartan (Entresto) 97-103 mg tablet [id number] Yes Take 1 tablet by mouth two times daily. Hay William MD 04/18/2025 Bedtime Active spironolactone (Aldactone) 25 mg tablet [id number] Yes Take 1 tablet (25 mg) by [...] amiodarone, 0.5 mg/min, Last Rate: 0.5 mg/min (04/26/251399) DOBUTamine, 2.5-15 mcg/kg/min, Last Rate: 2 mcg/kg/min (04/26/251399) furosemide, 40 mg/hr, Last Rate: 40 mg/hr [...] VIEW - Impression - Tip of the Boston-Shannan catheter appears to be in the right [...] follow along with you. Hakan Dugan, MS3 [facility] Nephrology As the teaching physician, I have personally performed or re-performed the history of present illness, physical exam and medical decision-making activities of the encounter and verified the medical student's documentation. I made pertinent changes as necessary to ensure accurate documentation. There may be additional comments below. Zhen Feldman MD Faculty, Division of Nephrology, Department of Medicine, [facility] [employer]. * [...] 20% Decrease in UOP past 24 hr Boston Shannan (04/24/25) Lasix gtt Vasopressor support, dobutamine [...] (2gNA, low fat, low cholesterol) 04/24/25 1717 Nutrition Risk: Low Nutrition Diagnosis: None at this time Malnutrition Assessment: Per Registered Dietitian assessment and evaluation, patient does not currently meet criteria OR there is not enough information to support the diagnosis of malnutrition per the clinical criteria set by the Academy of Nutrition and Dietetics (AND) and the [place] Society of Enteral and Parenteral Nutrition (ASPEN). [...] To reach the Clinical Dietitian, please utilize [employer] chat Wednesday-Wednesday from 8AM-4PM or call extension [phone]. For weekends (Wednesday-Wednesday) and holidays, the Clinical Dietitian can be reached via pager ([phone]) from 9AM-3PM. The Clinical Nutrition Department is unable to respond to [employer] chat messages on Sundays and hols. [1] Past Medical History: Diagnosis Date Asthma [...] elevated wedge pressure and RV pressures. A Boston-Shannan catheter was placed for further monitoring andthe [...] 77/50 -- -- -- -- -- -- 04/25/25 2100 107/75 -- -- 102 (!) 28 95 [...] -- 101 (!) 27 94 % -- 04/25/25 190 -- -- -- 100 -- -- -- [...] Value Ventricular Rate 120 Atrial Rate 120 HI Interval 198 QRS DURATION 102 QT Interval 294 QTC CALCULATION(BAZETT) 415 P Jarreau 64 R-Jarreau 38 T Wave Jarreau 116 Impression Sinus tachycardia Low voltage QRS [...] Bubble Study Result Date: 04/23/2025 1 1 [facility] Heart Station [address] [place] [address] [phone] (fax) Echocardiogram-[facility] Name: KRISTY DOHERTY Study Date: 04/23/2025 07:26 AM B/P: 90 mmHg/74 mmHg HR: 111 bpm Date of : 1955 Location: [facility] Height: 68 in. Age: 69 year(s) Patient [...] minimal pericardial effusion. Procedure Staff Reading Group: [facility] Referring Physician: RUDY KING Newspaper Distributor Supervisor: June Brumfield RDCS, RVT, RN, BSN Ordering Physician: FANI DENNEY Wall Motion Scores -1 - hyperkinesia, 0 - not evaluated, 1 - normal, 2 - hypokinesia, 3 - akinesia, 4 - dyskinesia Transthoracic echo (TTE) limited Result Date: 04/20/2025 1 1 [facility] Heart Station [address] [place] [address] [phone] (fax) Echocardiogram-[facility] Name: KRISTY DOHERTY Study Date: 04/20/2025 01:28 PM B/P: 83 mmHg/58 mmHg HR: 96 bpm Date of : 1955 Location: [facility] Height: 68 in. Age: 69 year(s) Patient Room: [facility] Weight: 179 lb. Gender: Male Patient Status: [...] No pericardial effusion. Procedure Staff Reading Group: [facility] Referring Physician:RUDY KING Newspaper Distributor Supervisor: June Brumfield RDCS, RVT, RN, BSN Ordering Physician: VENU SAMANIEGO Wall Motion Scores -1 - hyperkinesia, 0 - not evaluated, 1 - normal, 2 - hypokinesia, 3 - akinesia, 4 - dyskinesia Transthoracic echo (TTE) limited Result Date: 04/19/2025 1 1 [facility] Heart Station [address] [place] [address] [phone] (fax) Echocardiogram-[facility] Name: KRISTY DOHERTY Study Date: 04/19/2025 02:13 PM B/P: / HR: Date of : 1955 Location: [facility] Height: 68 in. Age: 69 year(s) Patient Room: [facility] Weight: 182 lb. Gender: Male Patient Status: InPt BSA: 1.96 m2 Indication: pericardialeffusion, h/o 35mm Watchman FLX Examination: Limited Echo Image Quality: Fair Findings Pericardium: Moderate pericardial effusion baseline. Post pericardiocentesis there is minimal pericardial effusion. Procedure Staff Reading Group: [facility] Referring Physician: RUDY KING Newsp[employer] Distributor Supervisor: SAMI Starr, RDCS Ordering Physician: VENU SAMANIEGO Complete Echo (TTE) w/wo Imaging Agent, Strain, 3D, Bubble Study Result Date: 04/19/2025 1 1 [facility] Heart Station [address] [place] [address] [phone] (fax) Echocardiogram-[facility] Name: KRISTY DOHERTY Study Date: 04/19/2025 12:46 PM B/P: 97 mmHg/71 mmHg HR: Date of : 1955 Location: [facility] Height: 68 in. Age: 69 year(s) Patient [...] early tamponade physiology. Procedure Staff Reading Group: [facility] [employer] Supervisor: Bryanna Cazares RDCS Ordering Physician: HAKAN Canchola signed by MD Mitesh Vernon on 04/19/2025 at 01:44 PM Limited Transthoracic Echo (TTE) w/wo Contrast, Color Flow, Imaging Agent, Strain, 3D, Bubble Study Result Date: 02/07/2025 1 1 [facility] Heart Station [address] [place] [address] [phone] (fax) Echocardiogram-[facility] Name: KRISTY DOHERTY Study Date: 02/07/2025 08:02 AM B/P: 118 mmHg/85 mmHg HR: 63 bpm Date of : 1955 Location: [facility] Height: 68 in. Age: 69 year(s) Patient [...] No pericardial effusion. Procedure Staff Reading Group: [facility] Referring Physician: RUDY KING Newspaper Distributor Supervisor: SAMI Starr, RDCS Ordering Physician: CHUCK FUNEZ Transesophageal echo (MASON) Result Date: 12/01/2024 1 [facility] Heart Station [address] [place] [address] [phone] (fax) Transesophageal Echocardiogram-[facility] Name: KRISTY DOHERTY Study Date: 12/01/2024 12:00 PM B/P: 134 mmHg/87 mmHg HR: 80 bpm Date of : 1955 Location: [facility] Height: 68 in. Age: 69 year(s) Patient Room: Weight: 194 lb. Gender: Male PatientStatus: OutPt BSA: 2.02 m2 Indication: Atrial Fibrillation, Pre-Watchman Examination: MASON, Color flow imaging Image Quality: Excellent Patient Consent: Informed, written consent was obtained for the procedure Exam Location: A MASON was performed in the Nodulizer without complications Anesthesia Pharyngeal anesthesia with viscous [...] examination with the fellow Procedure Staff ReadingGroup: [facility] Referring Physician: RUDY KING Newspaper Distributor Supervisor: DORIAN Walker Ordering Physician: Hay William MD [...] Performed: Right heart catheterization. Placement of a DIRECTOR OF DIGITAL MARKETING Boston-Shannan catheter for hemodynamic monitoring. Access into the right internal jugular vein under ultrasound guidance. Methods: Procedure was explained to the patient with risks and benefits; he signed informed consent. he was brought to the microbiology lab analyst in a fasting state. The right neck area was prepped and draped in usual fashion. Micropuncture technique was used for access under ultrasound guidance into the right internal jugular vein. A 6-American x 11 cm sheath was placed. A 6-American Carrasquillo catheter was used for right heart catheterization and measurement of pressures and calculation of cardiac output using the estimated [place] method. Carrasquillo catheter was removed. Over a wire to the access sheath was upsized to a 9 American introducer sheath. A DIRECTOR OF DIGITAL MARKETING Boston-Shannan catheter was advanced with the aid of a V18 wire and the distal end of the catheter was advanced to the distal segment of the right pulmonary artery. The Boston-Shannan catheter was secured in place. he tolerated [...] with biventricular failure. Successful placement of a DIRECTOR OF DIGITAL MARKETING Boston-Shannan catheter to guide management of heart failure. [...] runs of NSVT on telemetry Paroxysmal A-fib [id number] 3 (heart failure, hypertension, age 65-74) s/p [...] call with any questions. Brenden Vivar PGY-4 Staff Certified Nurse Midwife [facility] Cosigned by Bebo Dominguez MD at 04/27/2025 [...] Doherty Age - 69 y.[facility]. [facility] 1955 [id number] Date of Admission - 04/19/2025 10:46 AM HPI/Hospital Course Subjective Kristy Doherty is an 69 y.o. male who came from [place] with chest pain with radiation to neck andback. Past medical history of heart failure with reduced ejection fraction, hypertension, coronary artery disease, cardiomyopathy nonischemic (AICD placed), hyperlipidemia, atrial fibrillation statuspost [facility] , asthma. Patient presents from [place] with chest pain radiating to the neck [...] elevated wedge pressure and RV pressures. A Boston-Shannan catheter was placed for further monitoring and [...] XR chest 1 view Narrative: History: Assessing Boston-Shannan catheter Exam/Technique: Portable upright AP chest Comparison: Chest CTA from 04/23/2025. Findings: The tip of the right jugular Boston-Shannan catheter appears to overlap when appropriate EKG leads, apparently in the proximal portion of the right main pulmonary artery. No interval change is demonstrated with no new acute pulmonary or pleural abnormalities displayed on this single. Mild cardiomegaly appears unchanged. Cardiac electrical device unchanged. Impression: Tip of the Boston-Shannan catheter appears to be in the right [...] on 04/20 due to resolution of effusion Boston Shannan placed on 04/24, has showed improvement [...] support: Dobutamine, levophed Lines (location & placement): Boston Shannan DVT prophylaxis: Heparin subq Diet: Regular Code Status: FULL This progress note was completed using a voice employment evaluator/case manager system. Every effort was made to ensure accuracy. However, inadvertent computerized employment evaluator/case manager errors may be present. Karsten Gage MD [...] failure. Discussed with cardiology on the floor. Boston in place, with elevated wedge pressure. Cardiorenal [...] an 69 y.o. male who came from [place] with chest pain with radiation to neck andback. Past medical history of heart failure with reduced ejection fraction, hypertension, coronary artery disease, cardiomyopathy nonischemic (AICD placed), hyperlipidemia, atrial fibrillation statuspost Watchman , asthma. Patient presents from [place] with chest pain radiating to the neck [...] elevated wedge pressure and RV pressures. A Boston-Shannan catheter was placed for further monitoring and the patient was transferred to the medical ICU. SUBJECTIVE Patient seen and examined at the bedside. Patient denies any chest pain or difficulty breathing. Increasing pressure support. Boston Shannan numbers improving. OBJECTIVE Vitals height is [...] Performed: Right heart catheterization. Placement of a DIRECTOR OF DIGITAL MARKETING Boston-Shannan catheter for hemodynamic monitoring. Access into the right internal jugular vein under ultrasound guidance. Methods: Procedure was explained to the patient with risks and benefits; he signed informed consent. he was brought to the microbiology lab analyst in a fasting state. The right neck area was prepped and draped in usual fashion. Micropuncture technique was used for access under ultrasound guidance into the right internal jugular vein. A 6-American x 11 cm sheath was placed. A 6-American Carrasquillo catheter was used for right heart catheterization and measurement of pressures and calculation of cardiac output using the estimated [place] method. Carrasquillo catheter was removed. Over a wire to the access sheath was upsized to a 9 American introducer sheath. A DIRECTOR OF DIGITAL MARKETING Boston-Shannan catheter was advanced with the aid of a V18 wire and the distal end of the catheter was advanced to the distal segment of the right pulmonary artery. The Boston-Shannan catheter was secured in place. he tolerated [...] with biventricular failure. Successful placement of a DIRECTOR OF DIGITAL MARKETING Boston-Shannan catheter to guide management of heart failure. [...] on 04/20 due to resolution of effusion Boston Shannan placed on 04/24, has showed improvement [...] support: Milrinone, levophed Lines (location & placement): Boston Shannan DVT prophylaxis: Heparin subq Diet: Regular Code Status: FULL This progress note was completed using a voice employment evaluator/case manager system. Every effort was made to ensure accuracy. However, inadvertent computerized employment evaluator/case manager errors may be present. Karsten Gage MD [...] elevated wedge pressure and RV pressures. A Boston-Shannan catheter was placed for further monitoring andthe [...] -- -- 85 22 99 % -- 04/24/251701 -- -- -- -- -- 98 % [...] 88 19 93 % -- 04/24/25 0928 91/68 -- -- 106 -- -- -- 04/24/25 [...] Value Ventricular Rate 120 Atrial Rate 120 HI Interval 198 QRS DURATION 102 QT Interval 294 QTC CALCULATION(BAZETT) 415 P Jarreau 64 R-Jarreau 38 T Wave Jarreau 116 Impression Sinus tachycardia Low voltage QRS [...] Bubble Study Result Date: 04/23/2025 1 1 [facility] Heart Station [address] [place] [address] [phone] (fax) Echocardiogram-[facility] Name: KRISTY DOHERTY Study Date: 04/23/2025 07:26 AM B/P: 90 mmHg/74 mmHg HR: 111 bpm Date of : 1955 Location: [facility] Height: 68 in. Age: 69 year(s) Patient [...] minimal pericardial effusion. Procedure Staff Reading Group: [facility] Referring Physician: RUDY KING Newspaper Distributor Supervisor: June Brumfield RDCS, RVT, RN, BSN Ordering Physician: FANI DENNEY Wall Motion Scores -1 - hyperkinesia, 0 - not evaluated, 1 - normal, 2 - hypokinesia, 3 - akinesia, 4 - dyskinesia Transthoracic echo (TTE) limited Result Date: 04/20/2025 1 1 [facility] Heart Station [address] [place] [address] [phone] (fax) Echocardiogram-[facility] Name: KRISTY DOHERTY Study Date: 04/20/2025 01:28 PM B/P: 83 mmHg/58 mmHg HR: 96 bpm Date of : 1955 Location: [facility] Height: 68 in. Age: 69 year(s) Patient [...] No pericardial effusion. Procedure Staff Reading Group: [facility] Referring Physician:RUDY KING Newspaper Distributor Supervisor: June Brumfield RDCS, RVT, RN, BSN Ordering Physician: VENU SAMANIEGO Wall Motion Scores -1 - hyperkinesia, 0 - not evaluated, 1 - normal, 2 - hypokinesia, 3 - akinesia, 4 - dyskinesia Transthoracic echo (TTE) limited Result Date: 04/19/2025 1 1 [facility] Heart Station [address] [facility] [place] [place] [address] (fax) Echocardiogram-[facility] Name: KRISTY DOHERTY Study Date: 04/19/2025 02:13 PM B/P: / HR: Date of : 1955 Location: [facility] Height: 68 in. Age: 69 year(s) Patient Room: [facility] Weight: 182 lb. Gender: Male Patient Status: InPt BSA: 1.96 m2 Indication: pericardialeffusion, h/o 35mm Watchman FLX Examination: Limited Echo Image Quality: Fair Findings Pericardium: Moderate pericardial effusion baseline. Post pericardiocentesis there is minimal pericardial effusion. Procedure Staff Reading Group: [facility] Referring Physician: RUDY KING Newspaper Distributor Supervisor: SAMI Starr, RDCS Ordering Physician: VENU SAMANIEGO Complete Echo (TTE) w/wo Imaging Agent, Strain, 3D, Bubble Study Result Date: 04/19/2025 1 1 [facility] Heart Station [address] [facility] [place] [place] [address] [phone] (fax) Echocardiogram-[facility] Name: KRISTY DOHERTY Study Date: 04/19/2025 12:46 PM B/P: 97 mmHg/71 mmHg HR: Date of : 1955 Location: [facility] Height: 68 in. Age: 69 year(s) Patient Room: [facility] Weight: 182 lb. Gender: Male Patient Status: [...] early tamponade physiology. Procedure Staff Reading Group: [facility] [employer] Supervisor: Bryanna Cazares RDCS Ordering Physician: HAKAN Canchola signed by MD Mitesh Vernon on 04/19/2025 at 01:44 PM Limited Transthoracic Echo (TTE) w/wo Contrast, Color Flow, Imaging Agent, Strain, 3D, Bubble Study Result Date: 02/07/2025 1 1 [facility] Heart Station [address] [place] [address] [phone] (fax) Echocardiogram-[facility] Name: KRISTY DOHERTY Study Date: 02/07/2025 08:02 AM B/P: 118 mmHg/85 mmHg HR: 63 bpm Date of : 1955 Location: [facility] Height: 68 in. Age: 69 year(s) Patient [...] No pericardial effusion. Procedure Staff Reading Group: [facility] Referring Physician: RUDY KING Newspaper Distributor Supervisor: SAMI Starr, RDCS Ordering Physician: CHUCK FUNEZ Transesophageal echo (MASON) Result Date: 12/01/2024 1 [facility] Heart Station [address] [place] [address] [phone] (fax) Transesophageal Echocardiogram-[facility] Name: KRISTY DOHERTY Study Date: 12/01/2024 12:00 PM B/P: 134 mmHg/87 mmHg HR: 80 bpm Date of : 1955 Location: [facility] Height: 68 in. Age: 69 year(s) Patient Room: Weight: 194 lb. Gender: Male PatientStatus: OutPt BSA: 2.02 m2 Indication: Atrial Fibrillation, Pre-Watchman Examination: MASON, Color flow imaging Image Quality: Excellent Patient Consent: Informed, written consent was obtained for the procedure Exam Location: A MASON was performed in the Nodulizer without complications Anesthesia Pharyngeal anesthesia with viscous [...] examination with the fellow Procedure Staff ReadingGroup: [facility] Referring Physician: RUDY KING Newspaper Distributor Supervisor: DORIAN Walker Ordering Physician: Hay William MD [...] Performed: Right heart catheterization. Placement of a DIRECTOR OF DIGITAL MARKETING Boston-Shannan catheter for hemodynamic monitoring. Access into the right internal jugular vein under ultrasound guidance. Methods: Procedure was explained to the patient with risks and benefits; he signed informed consent. he was brought to the microbiology lab analyst in a fasting state. The right neck area was prepped and draped in usual fashion. Micropuncture technique was used for access under ultrasound guidance into the right internal jugular vein. A 6-American x 11 cm sheath was placed. A 6-American Carrasquillo catheter was used for right heart catheterization and measurement of pressures and calculation of cardiac output using the estimated [place] method. Carrasquillo catheter was removed. Over a wire to the access sheath was upsized to a 9 American introducer sheath. A DIRECTOR OF DIGITAL MARKETING Boston-Shannan catheter was advanced with the aid of a V18 wire and the distal end of the catheter was advanced to the distal segment of the right pulmonary artery. The Boston-Shannan catheter was secured in place. he tolerated [...] with biventricular failure. Successful placement of a DIRECTOR OF DIGITAL MARKETING Boston-Shannan catheter to guide management of heart failure. [...] runs of NSVT on telemetry Paroxysmal A-fib [id number] (heart failure, hypertension, age 65-74) s/p [...] Alba Mena MD PGY-3 Internal Medicine Resident [facility] Cosigned by Bebo Dominguez MD at 04/25/2025 [...] than 1 Patient transferred to MICU and Boston-Shannan in place and started on milrinone Unfortunately [...] Assessment of hemodynamics at the bedside with Boston-shannan catheter * Benedict Pascual MD - 04/24/2025 4:09 PM EDT Images from the original note were not included. [facility] Medicine Daily Progress Note - 04/24/2025 4:09 PM; Room: [address] [place] [address] Admission: 04/19/2025 10:46 AM; Length of stay: 5 days THE HOSPITALIST TEAM PREFERS TO USE [employer] FOR NON-URGENT COMMUNICATION 7AM- 7PM. IF I DO NOT RESPOND WITHIN 20 MINUTES OR URGENT MATTERS, PLEASE CALL THROUGH THE S[employer]TER [employer] ARTICLES. FROM 7PM-7AM, PLEASE PAGE [phone](COVR). Code Status: Full Code Barriers to Discharge: [...] showed early tamponade. Patient was taken to microbiology lab analyst for Pericardiocentesis. Right heart cath was not [...] due to hypotension. Coronary artery disease involving [place] coronary artery of [place] heart with angina pectoris - Nonobstructive. - [...] LDL 69 04/24/2025 No results found for: [id number] , IRON , TIBC , C3 , [...] Performed: Right heart catheterization. Placement of a DIRECTOR OF DIGITAL MARKETING Boston-Shannan catheter for hemodynamic monitoring. Access into the right internal jugular vein under ultrasound guidance. Methods: Procedure was explained to the patient with risks and benefits; he signed informed consent. he was brought to the microbiology lab analyst in a fasting state. The right neck area was prepped and draped in usual fashion. Micropuncture technique was used for access under ultrasound guidance into the right internal jugular vein. A 6-American x 11 cm sheath was placed. A 6-American Carrasquillo catheter was used for right heart catheterization and measurement of pressures and calculation of cardiac output using the estimated [place] method. Carrasquillo catheter was removed. Over a wire to the access sheath was upsized to a 9 American introducer sheath. A DIRECTOR OF DIGITAL MARKETING Boston-Shannan catheter was advanced with the aid of a V18 wire and the distal end of the catheter was advanced to the distal segment of the right pulmonary artery. The Boston-Shannan catheter was secured in place. he tolerated [...] with biventricular failure. Successful placement of a DIRECTOR OF DIGITAL MARKETING Boston-Shannan catheter to guide management of heart failure. Plan: Patient will be started on intravenous inotropic therapy. Further recommendations per inpatient Cardiology service. Hay William MD Discharge Planning Expected Discharge Disposition: Home or Self Care (01) (pending clinical course) Signed Benedict Pascual MD [facility] Medicine 04/24/2025 4:09 PM * Felicita [...] Value Ventricular Rate 120 Atrial Rate 120 HI Interval 198 QRS DURATION 102 QT Interval 294 QTC CALCULATION(BAZETT) 415 P Jarreau 64 R-Jarreau 38 T Wave Jarreau 116 Impression Sinus tachycardia Low voltage QRS [...] Bubble Study Result Date: 04/23/2025 1 1 [facility] Heart Station [address] [place] [address] [phone] (fax) Echocardiogram-[facility] Name: KRISTY DOHERTY Study Date: 04/23/2025 07:26 AM B/P: 90 mmHg/74 mmHg HR: 111 bpm Date of : 1955 Location: [facility] Height: 68 in. Age: 69 year(s) Patient [...] minimal pericardial effusion. Procedure Staff Reading Group: [facility] Referring Physician: RUDY KING Newspaper Distributor Supervisor: June Brumfield RDCS, RVT, RN, BSN Ordering Physician: FANI DENNEY Wall Motion Scores -1 - hyperkinesia, 0 - not evaluated, 1 - normal, 2 - hypokinesia, 3 - akinesia, 4 - dyskinesia Transthoracic echo (TTE) limited Result Date: 04/20/2025 1 1 [facility] Heart Station [address] [place] [address] [phone] (fax) Echocardiogram-[facility] Name: KRISTY DOHERTY Study Date: 04/20/2025 01:28 PM B/P: 83 mmHg/58 mmHg HR: 96 bpm Date of : 1955 Location: [facility] Height: 68 in. Age: 69 year(s) Patient Room: [facility] Weight: 179 lb. Gender: Male Patient Status: [...] No pericardial effusion. Procedure Staff Reading Group: [facility] Referring Physician:RUDY KING Newspaper Distributor Supervisor: June Brumfield RDCS, RVT, RN, BSN Ordering Physician: VENU SAMANIEGO Wall Motion Scores -1 - hyperkinesia, 0 - not evaluated, 1 - normal, 2 - hypokinesia, 3 - akinesia, 4 - dyskinesia Transthoracic echo (TTE) limited Result Date: 04/19/2025 1 1 [facility] Heart Station [address] [facility] [place] [place] [address] [phone] (fax) Echocardiogram-[facility] Name: KRISTY DOHERTY Study Date: 04/19/2025 02:13 PM B/P: / HR: Date of : 1955 Location: [facility] Height: 68 in. Age: 69 year(s) Patient Room: [facility] Weight: 182 lb. Gender: Male Patient Status: InPt BSA: 1.96 m2 Indication: pericardialeffusion, h/o 35mm Watchman FLX Examination: Limited Echo Image Quality: Fair Findings Pericardium: Moderate pericardial effusion baseline. Post pericardiocentesis there is minimal pericardial effusion. Procedure Staff Reading Group: [facility] Referring Physician: RUDY KING Newspaper Distributor Supervisor: SAMI Starr, RDROSALIO Ordering Physician: VENU SAMANIEGO Complete Echo (TTE) w/wo Imaging Agent, Strain, 3D, Bubble Study Result Date: 04/19/2025 1 1 [facility] Vascular [facility] Station [address] [facility] [place] [place] [address] [phone] (fax) Echocardiogram-[facility] Name: KRISTY DOHERTY Study Date: 04/19/2025 12:46 PM B/P: 97 mmHg/71 mmHg HR: Date of : 1955 Location: [facility] Height: 68 in. Age: 69 year(s) Patient [...] early tamponade physiology. Procedure Staff Reading Group: [facility] [employer] Supervisor: Bryanna Cazares RDCS Ordering Physician: HAKAN Canchola signed by MD Mitesh Vernon on 04/19/2025 at 01:44 PM Limited Transthoracic Echo (TTE) w/wo Contrast, Color Flow, Imaging Agent, Strain, 3D, Bubble Study Result Date: 02/07/2025 1 1 [facility] Heart Station [address] [place] [address] [phone] (fax) Echocardiogram-[facility] Name: KRISTY DOHERTY Study Date: 02/07/2025 08:02 AM B/P: 118 mmHg/85 mmHg HR: 63 bpm Date of : 1955 Location: [facility] Height: 68 in. Age: 69 year(s) Patient [...] No pericardial effusion. Procedure Staff Reading Group: [facility] Referring Physician: RUDY KING [employer] Distributor Supervisor: SAMI Starr, RDCS Ordering Physician: CHUCK FUNEZ Transesophageal echo (MASON) Result Date: 12/01/2024 1 [facility] Heart Station [address] [place] [address] [phone] (fax) Transesophageal Echocardiogram-[facility] Name: KRISTY DOHERTY Study Date: 12/01/2024 12:00 PM B/P: 134 mmHg/87 mmHg HR: 80 bpm Date of : 1955 Location: [facility] Height: 68 in. Age: 69 year(s) Patient Room: Weight: 194 lb. Gender: Male PatientStatus: OutPt BSA: 2.02 m2 Indication: Atrial Fibrillation, Pre-Watchman Examination: MASON, Color flow imaging Image Quality: Excellent Patient Consent: Informed, written consent was obtained for the procedure Exam Location: A MASON was performed in the Nodulizer without complications Anesthesia Pharyngeal anesthesia with viscous [...] examination with the fellow Procedure Staff ReadingGroup: [facility] Referring Physician: RUDY KING Newspaper Distributor Supervisor: DORIAN Walker Ordering Physician: Hay William MD [...] Agent, Strain, 3D, Bubble Study 1 1 [facility] Heart Station [address] [place] [id number] [phone] (fax) Echocardiogram-[facility] Name: KRISTY DOHERTY Study Date: 04/23/2025 07:26 AM B/P: 90 mmHg/74 mmHg HR: 111 bpm Date of : 1955 Location: [facility] Height: 68 in. Age: 69 year(s) Patient [...] minimal pericardial effusion. Procedure Staff Reading Group: [facility] Referring Physician: RUDY KING [employer] Distributor Supervisor: June Brumfield RDCS, RVT, RN, BSN Ordering [...] and a micropuncture access technique a 6 American sheath was placed in the right femoral [...] FINDINGS: No acute, territorial region of diminished ochoa-white differentiation. No evidence of acute intracranial hemorrhage. [...] 49 Frequent PVC's on telemetry Paroxysmal A-fib [id number] 3 (heart failure, hypertension, age 65-74) s/p [...] Felicita Mooney MD PGY-2 Internal Medicine Resident [facility] Cosigned by Bebo Dominguez MD at 04/25/2025 [...] Progress Note - 04/23/2025 3:18 PM; Room: [address] [place] [address] Admission: 04/19/2025 10:46 AM; Length of stay: 4 days THE HOSPITALIST TEAM PREFERS TO USE [employer] CHAT FOR NON-URGENT COMMUNICATION 7AM- 7PM. IF I DO NOT RESPOND WITHIN 20 MINUTES OR URGENT MATTERS, PLEASE CALL THROUGH THE [employer] ARTICLES. FROM 7PM-7AM, PLEASE PAGE [phone](COVR). Code Status: Full Code Barriers to Discharge: [...] Intake/Output Summary (Last 24 hours) at 04/23/2025 3048 Last data filed at 04/23/2025 1147 Gross [...] showed early tamponade. Patient was taken to microbiology lab analyst for Pericardiocentesis. Right heart cath was not [...] due to hypotension. Coronary artery disease involving lac vieux coronary artery of lac vieux heart with angina pectoris - Nonobstructive. - [...] CORTISOL 11.2 04/20/2025 No results found for: [id number] , IRON , TIBC , C3 , C4 , COLLIN , CANCA , ASO , PSA , CEA , CA125 , CA199 , AFP , CA153 Imaging Limited Echo (TTE) w/wo Limited Doppler, Color Flow, Imaging Agent, Strain, 3D, Bubble Study 1 1 [facility] Heart Station [address] [place] [address] [phone] (fax) Echocardiogram-[facility] Name: KRISTY DOHERTY Study Date: 04/23/2025 07:26 AM B/P: 90 mmHg/74 mmHg HR: 111 bpm Date of : 1955 Location: [facility] Height: 68 in. Age: 69 year(s) Patient [...] minimal pericardial effusion. Procedure Staff Reading Group: [facility] Referring Physician: RUDY KING [employer] Dist[employer] Supervisor: June Brumfield, DEAN, RVT, RN, BSN Ordering [...] and a micropuncture access technique a 6 American sheath was placed in the right femoral [...] traumatic malalignment. Approved by:Phill Morgann1 4:14 AM. I, Ayden Corbin MD,have reviewed [...] FINDINGS: No acute, territorial region of diminished ochoa-white differentiation. No evidence of acute intracranial hemorrhage. [...] (pending clinical course) Signed Benedict Pascual MD [facility] Medicine 04/23/2025 3:18 PM * Elliott Nettles IV THERAPY NURSE - 04/23/2025 8:55 AM EDT Images from [...] 12-24 hour telemetry reviewed: /, 3 beat VTA 02:33, 77-138. CURRENT MEDS: allopurinol, 300 mg, [...] kg (177 lb 3.2 oz) 04/23/25 0310 109/ -- -- (!) 121 -- -- -- [...] Value Ventricular Rate 120 Atrial Rate 120 HI Interval 198 QRS DURATION 102 QT Interval 294 QTC CALCULATION(BAZETT) 415 P Jarreau 64 R-Jarreau 38 T Wave Jarreau 116 Impression Sinus tachycardia Low voltage QRS Septal infarct , age undetermined Abnormal ECG When compared with ECG of 19-APR-2025 18:24, Premature ventricular complexes are no longer Present Confirmed by Jeffy VERNON, MITESH Pruett (57) on 04/23/2025 8:14:48 AM Limited Echo (TTE) w/wo Limited Doppler, Color Flow, Imaging Agent, Strain, 3D, Bubble Study 1 1 [facility] Heart Station [address] [facility] [place] [place] [address] [phone] (fax) Echocardiogram-[facility] Name: KRISTY DOHERTY Study Date: 04/23/2025 07:26 AM B/P: 90 mmHg/74 mmHg HR: 111 bpm Date of : 1955 Location: [facility] Height: 68 in. Age: 69 year(s) Patient [...] minimal pericardial effusion. Procedure Staff Reading Group: [facility] Referring Physician: RUDY KING [employer] Supervisor: June Brumfield RDCS, RVT, RN, BSN Ordering [...] and a micropuncture access technique a 6 American sheath was placed in the right femoral [...] FINDINGS: No acute, territorial region of diminished ochoa-white differentiation. No evidence of acute intracranial hemorrhage. [...] and senescent changes as described. Approved by:Phill Morgann10/12/2024 4:07 AM. Ayden Ramirez MD,have reviewed the [...] Spironolactone remains on hold #Paroxysmal atrial fibrillation -[id number] = 3 (HF, HTN, age 65-74) 12-24 [...] was made to ensure accuracy, some unintentional employment evaluator/case manager errors may be present. [facility]EL[facility] Cardiovascular Medicine [1] Past Medical History: Diagnosis Date Asthma 07/29/2012 CHF (congestive heart failure) ([facility]/HCC) Coronary artery disease History of malignant neoplasm [...] has been running in the low 90s [id number] over the past couple of weeks. Denies [...] Value Ventricular Rate 112 Atrial Rate 112 HI Interval 186 QRS DURATION 114 QT Interval 342 QTC CALCULATION(BAZETT) 466 P Jarreau 50 R-Jarreau 19 T Wave Jarreau 96 Impression Sinus tachycardia with occasional Premature [...] (TTE) limited Result Date: 04/20/2025 1 1 [facility] Heart Station [address] [place] [address] [phone] (fax) Echocardiogram-[facility] Name: KRISTY DOHERTY Study Date: 04/20/2025 01:28 PM B/P: 83 mmHg/58 mmHg HR: 96 bpm Date of : 1955 Location: [facility] Height: 68 in. Age: 69 year(s) Patient [...] No pericardial effusion. Procedure Staff Reading Group: [facility] Referring Physician:RUDY KING [employer] Distributor Supervisor: June Brumfield RDCS, RVT, RN, BSN Ordering Physician: VENU SAMANIEGO Wall Motion Scores -1 - hyperkinesia, 0 - not evaluated, 1 - normal, 2 - hypokinesia, 3 - akinesia, 4 - dyskinesia Transthoracic echo (TTE) limited Result Date: 04/19/2025 1 1 [facility] Heart Station [address] [place] [address] [phone] (fax) Echocardiogram-[facility] Name: KRISTY DOHERTY Study Date: 04/19/2025 02:13 PM B/P: / HR: Date of : 1955 Location: [facility] Height: 68 in. Age: 69 year(s) Patient Room: 3183 Weight: 182 lb. Gender: Male Patient Status: InPt BSA: 1.96 m2 Indication: pericardialeffusion, h/o 35mm Watchman FLX Examination: Limited Echo Image Quality: Fair Findings Pericardium: Moderate pericardial effusion baseline. Post pericardiocentesis there is minimal pericardial effusion. Procedure Staff Reading Group: [facility] Referring Physician: RUDY KING [employer] Supervisor: SAMI Starr, RDROSALIO Ordering Physician: VENU SAMANIEGO Complete Echo (TTE) w/wo Imaging Agent, Strain, 3D, Bubble Study Result Date: 04/19/2025 1 1 [facility] Heart Station [address] [place] [address] [phone] (fax) Echocardiogram-[facility] Name: KRISTY DOHERTY Study Date: 04/19/2025 12:46 PM B/P: 97 mmHg/71 mmHg HR: Date of : 1955 Location: [facility] Height: 68 in. Age: 69 year(s) Patient [...] early tamponade physiology. Procedure Staff Reading Group: [facility] [employer] Supervisor: Bryanna Cazares RDCS Ordering Physician: HAKAN Canchola signed by MD Mitesh Vernon on 04/19/2025 at 01:44 PM Limited Transthoracic Echo (TTE) w/wo Contrast, Color Flow, Imaging Agent, Strain, 3D, Bubble Study Result Date: 02/07/2025 1 1 [facility] Heart Station [address] [place] [address] [phone] (fax) Echocardiogram-[facility] Name: KRISTY DOHERTY Study Date: 02/07/2025 08:02 AM B/P: 118 mmHg/85 mmHg HR: 63 bpm Date of : 1955 Location: [facility] Height: 68 in. Age: 69 year(s) Patient Room: [facility] Weight: 186 lb. Gender: Male Patient Status: [...] No pericardial effusion. Procedure Staff Reading Group: [facility] Referring Physician: RUDY KING Newsp[employer] Distributor Supervisor: SAMI Starr, RDCS Ordering Physician: CHUCK FUNEZ Transesophageal echo (MASON) Result Date: 12/01/2024 1 [facility] Heart Station [address] [place] [address] [phone] (fax) Transesophageal Echocardiogram-[facility] Name: KRISTY DOHERTY Study Date: 12/01/2024 12:00 PM B/P: 134 mmHg/87 mmHg HR: 80 bpm Date of : 1955 Location: [facility] Height: 68 in. Age: 69 year(s) Patient Room: Weight: 194 lb. Gender: Male PatientStatus: OutPt BSA: 2.02 m2 Indication: Atrial Fibrillation, Pre-Watchman Examination: MASON, Color flow imaging Image Quality: Excellent Patient Consent: Informed, written consent was obtained for the procedure Exam Location: A MASON was performed in the Nodulizer without complications Anesthesia Pharyngeal anesthesia with viscous [...] examination with the fellow Procedure Staff ReadingGroup: [facility] Referring Physician: RUDY KING Newsp[employer] Distributor Supervisor: DORIAN Walker Ordering Physician: Hay William MD [...] fibrillation -S/p Watchman procedure 02/06/2025, on DAPT -[id number] score 3 (HF, HTN, age 65-74) #Chronic HFrEF #Hypertension -NYHA II -Compensated; appears euvolemic on physical exam -EF 30% -S/p ICD -GDMT (limited by hypotension): Farxiga >>Metoprolol succinate/spironolactone on hold d/t hypotension >>BP's improving today; consider resuming tomorrow #Nonobstructive CAD #Dyslipidemia -Continue aspirin and atorvastatin -Remainder of care as per primary team and other consultative services -Cardiology team will continue to follow ALEXIS Pat Cardiovascular Medicine [1] Patient Active Problem List Diagnosis New onset of congestive heart failure (CMS/HCC) Uncomplicated asthma History of malignant neoplasm of prostate Hypomagnesemia Primary hypertension Syncope and collapse Coronary artery disease involving lac vieux coronary artery of lac vieux heart with angina pectoris Chronic systolic heart [...] Progress Note - 04/22/2025 8:12 PM; Room: [facility]/3183- Admission: 04/19/2025 10:46 AM; Length of stay: 3 days THE HOSPITALIST TEAM PREFERS TO USE [employer] CHAT FOR NON-URGENT COMMUNICATION 7AM- 7PM. IF I DO NOT RESPOND WITHIN 20 MINUTES OR URGENT MATTERS, PLEASE CALL THROUGH THE [employer] ARTICLES. FROM 7PM-7AM, PLEASE PAGE [phone](COVR). Code Status: Full Code Barriers to Discharge: [...] showed early tamponade. Patient was taken to microbiology lab analyst for Pericardiocentesis. Right heart cath was not [...] Might resume tomorrow Coronary artery disease involving lac vieux coronary artery of lac vieux heart with angina pectoris - Nonobstructive. - [...] CORTISOL 11.2 04/20/2025 No results found for: OEOPVEAG15 , IRON , TIBC , C3 , C4 , COLLIN , CANCA , ASO , PSA , CEA , CA125 , CA199 , AFP , CA153 Imaging Transthoracic echo (TTE) limited 1 1 [facility] Heart Station [address] [place] [address] [phone] (fax) Echocardiogram-[facility] Name: KRISTY DOHERTY Study Date: 04/20/2025 01:28 PM B/P: 83 mmHg/58 mmHg HR: 96 bpm Date of : 1955 Location: [facility] Height: 68 in. Age: 69 year(s) Patient [...] No pericardial effusion. Procedure Staff Reading Group: [facility] Referring Physician: RUDY KING [employer] Supervisor: June Brumfield RDCS, RVT, RN, BSN Ordering [...] person, place, and time. Physical Examination: Vitals: 04/21/25 0820 BP: 106/58 Pulse: 81 Resp: 14 Temp: 36.2 ??C (97.2 ??F) SpO2: 94% Relevant Lab Results Encounter Date: 04/19/25 ECG 12 lead Result Value Ventricular Rate 112 Atrial Rate 112 HI Interval 186 QRS DURATION 114 QT Interval 342 QTC CALCULATION(BAZETT) 466 P Jarreau 50 R-Jarreau 19 T Wave Jarreau 96 Impression Sinus tachycardia with occasional Premature [...] (TTE) limited Result Date: 04/20/2025 1 1 [facility] Heart Station [address] [place] [address] [phone] (fax) Echocardiogram-[facility] Name: KRISTY DOHERTY Study Date: 04/20/2025 01:28 PM B/P: 83 mmHg/58 mmHg HR: 96 bpm Date of : 1955 Location: [facility] Height: 68 in. Age: 69 year(s) Patient [...] No pericardial effusion. Procedure Staff Reading Group: [facility] Referring Physician:RUDY KING [employer] Supervisor: June Brumfield RDCS, RVT, RN, BSN Ordering Physician: VENU SAMANIEGO Wall Motion Scores -1 - hyperkinesia, 0 - not evaluated, 1 - normal, 2 - hypokinesia, 3 - akinesia, 4 - dyskinesia Transthoracic echo (TTE) limited Result Date: 04/19/2025 1 1 [facility] Vascular [facility] Heart Station [address] [facility] [place] [place] [address] [phone] (fax) Echocardiogram-[facility] Name: KRISTY DOHERTY Study Date: 04/19/2025 02:13 PM B/P: / HR: Date of : 1955 Location: [facility] Height: 68 in. Age: 69 year(s) Patient Room: 3183 Weight: 182 lb. Gender: Male Patient Status: InPt BSA: 1.96 m2 Indication: pericardialeffusion, h/o 35mm Watchman FLX Examination: Limited Echo Image Quality: Fair Findings Pericardium: Moderate pericardial effusion baseline. Post pericardiocentesis there is minimal pericardial effusion. Procedure Staff Reading Group: [facility] Referring Physician: RUDY KING [employer] Supervisor: SAMI Starr, RDCS Ordering Physician: VENU SAMANIEGO Complete Echo (TTE) w/wo Imaging Agent, Strain, 3D, Bubble Study Result Date: 04/19/2025 1 1 [facility] Vascular [facility] Station [address] [facility] [place] [place] [address] (fax) Echocardiogram-[facility] Name: KRISTY DOHERTY Study Date: 04/19/2025 12:46 PM B/P: 97 mmHg/71 mmHg HR: Date of : 1955 Location: [facility] Height: 68 in. Age: 69 year(s) Patient [...] early tamponade physiology. Procedure Staff Reading Group: [facility] [employer] Supervisor: Bryanna Cazares RDCS Ordering Physician: HAKAN Canchola signed by MD Mitesh Vernon on 04/19/2025 at 01:44 PM Limited Transthoracic Echo (TTE) w/wo Contrast, Color Flow, Imaging Agent, Strain, 3D, Bubble Study Result Date: 02/07/2025 1 1 [facility] Heart Station [address] [place] [address] [phone] (fax) Echocardiogram-[facility] Name: KRISTY DOHERTY Study Date: 02/07/2025 08:02 AM B/P: 118 mmHg/85 mmHg HR: 63 bpm Date of : 1955 Location: [facility] Height: 68 in. Age: 69 year(s) Patient [...] No pericardial effusion. Procedure Staff Reading Group: [facility] Referring Physician: RUDY KING [employer] Supervisor: SAMI Starr, RDCS Ordering Physician: CHUCK FUNEZ Transesophageal echo (MASON) Result Date: 12/01/2024 1 [facility] Heart Station [address] [place] [address] [phone] (fax) Transesophageal Echocardiogram-[facility] Name: KRISTY DOHERTY Study Date: 12/01/2024 12:00 PM B/P: 134 mmHg/87 mmHg HR: 80 bpm Date of : 1955 Location: [facility] Height: 68 in. Age: 69 year(s) Patient Room: Weight: 194 lb. Gender: Male PatientStatus: OutPt BSA: 2.02 m2 Indication: Atrial Fibrillation, Pre-Watchman Examination: MASON, Color flow imaging Image Quality: Excellent Patient Consent: Informed, written consent was obtained for the procedure Exam Location: A MASON was performed in the Nodulizer without complications Anesthesia Pharyngeal anesthesia with viscous [...] examination with the fellow Procedure Staff ReadingGroup: [facility] Referring Physician: RUDY KING Newsp[employer] Distributor Supervisor: DORIAN Walker Ordering Physician: Hay William MD No nuclear medicine results found for the past 12 months Relevant Imaging Results Transthoracic echo (TTE) limited 1 1 [facility] Heart Station [address] [place] [address] [phone] (fax) Echocardiogram-[facility] Name: KRISTY DOHERTY Study Date: 04/20/2025 01:28 PM B/P: 83 mmHg/58 mmHg HR: 96 bpm Date of : 1955 Location: [facility] Height: 68 in. Age: 69 year(s) Patient Room: [facility] Weight: 179 lb. Gender: Male Patient Status: [...] No pericardial effusion. Procedure Staff Reading Group: [facility] Referring Physician: RUDY KING [employer] Dist[employer] Supervisor: June Brumfield RDCS, RVT, RN, BSN Ordering [...] Franco MD PGY-2 Internal Medicine Resident / [facility] Cosigned by Fani Denney MD at 04/21/2025 [...] from the original note were not included. [facility] Medicine Daily Progress Note - 04/21/2025 8:20 AM; Room: [address] [place] [address] Admission: 04/19/2025 10:46 AM; Length of stay: 2 days THE HOSPITALIST TEAM PREFERS TO USE [employer] CHAT FOR NON-URGENT COMMUNICATION 7AM- 7PM. IF I DO NOT RESPOND WITHIN 20 MINUTES OR URGENT MATTERS, PLEASE CALL THROUGH THE [employer] ARTICLES. FROM 7PM-7AM, PLEASE PAGE [phone](COVR). Code Status: Full Code Barriers to Discharge: [...] showed early tamponade. Patient was taken to microbiology lab analyst for Pericardiocentesis. Right heart cath was not [...] due to hypotension. Coronary artery disease involving lac vieux coronary artery of lac vieux heart with angina pectoris - Nonobstructive. - [...] CORTISOL 11.2 04/20/2025 No results found for: [id number] , IRON , TIBC , C3 , C4 , COLLIN , CANCA , ASO , PSA , CEA , CA125 , CA199 , AFP , CA153 Imaging Transthoracic echo (TTE) limited 1 1 [facility] Heart Station [address] [place] [address] [phone] (fax) Echocardiogram-[facility] Name: KRISTY DOHERTY Study Date: 04/20/2025 01:28 PM B/P: 83 mmHg/58 mmHg HR: 96 bpm Date of : 1955 Location: [facility] Height: 68 in. Age: 69 year(s) Patient [...] No pericardial effusion. Procedure Staff Reading Group: [facility] Referring Physician: RUDY KING [employer] Supervisor: June Brumfield RDCS, RVT, RN, BSN Ordering [...] (pending clinical course) Signed Osito Kline MD [facility] Medicine 04/21/2025 8:20 AM * Alba [...] Value Ventricular Rate 112 Atrial Rate 112 HI Interval 186 QRS DURATION 114 QT Interval 342 QTC CALCULATION(BAZETT) 466 P Jarreau 50 R-Jarreau 19 T Wave Jarreau 96 Impression Sinus tachycardia with occasional Premature [...] (TTE) limited Result Date: 04/19/2025 1 1 [facility] Vascular [facility] Heart Station [address] [place] [phone] (fax) Echocardiogram-[facility] Name: KRISTY DOHERTY Study Date: 04/19/2025 02:13 PM B/P: / HR: Date of : 1955 Location: [facility] Height: 68 in. Age: 69 year(s) Patient Room: 3183 Weight: 182 lb. Gender: Male Patient Status: InPt BSA: 1.96 m2 Indication: pericardialeffusion, h/o 35mm Watchman FLX Examination: Limited Echo Image Quality: Fair Findings Pericardium: Moderate pericardial effusion baseline. Post pericardiocentesis there is minimal pericardial effusion. Procedure Staff Reading Group: [facility] Referring Physician: RUDY KING Newspaper Distributor Supervisor: SAMI Starr, RDCS Ordering Physician: VENU SAMANIEGO Complete Echo (TTE) w/wo Imaging Agent, Strain, 3D, Bubble Study Result Date: 04/19/2025 1 1 [facility] [address] [place] [phone] (fax) Echocardiogram-[facility] Name: KRISTY DOHERTY Study Date: 04/19/2025 12:46 PM B/P: 97 mmHg/71 mmHg HR: Date of : 1955 Location: [facility] Height: 68 in. Age: 69 year(s) Patient [...] early tamponade physiology. Procedure Staff Reading Group: [facility] [employer] Dist[employer] Supervisor: Bryanna Cazares RDCS Ordering Physician: HAKAN Canchola signed by MD Mitesh Vernon on 04/19/2025 at 01:44 PM Limited Transthoracic Echo (TTE) w/wo Contrast, Color Flow, Imaging Agent, Strain, 3D, Bubble Study Result Date: 02/07/2025 1 1 [facility] Heart Station [address] [facility] [place] [place] [address] [phone] (fax) Echocardiogram-[facility] Name: KRISTY DOHERTY Study Date: 02/07/2025 08:02 AM B/P: 118 mmHg/85 mmHg HR: 63 bpm Date of : 1955 Location: [facility] Height: 68 in. Age: 69 year(s) Patient [...] No pericardial effusion. Procedure Staff Reading Group: [facility] Referring Physician: RUDY KING Newspaper Distributor Supervisor: SAMI Starr, RDCS Ordering Physician: CHUCK FUNEZ Transesophageal echo (MASON) Result Date: 12/01/2024 1 [facility] Heart Station [address] [place] [address] [phone] (fax) Transesophageal Echocardiogram-[facility] Name: KRISTY DOHERTY Study Date: 12/01/2024 12:00 PM B/P: 134 mmHg/87 mmHg HR: 80 bpm Date of : 1955 Location: [facility] Height: 68 in. Age: 69 year(s) Patient Room: Weight: 194 lb. Gender: Male PatientStatus: OutPt BSA: 2.02 m2 Indication: Atrial Fibrillation, Pre-Watchman Examination: MASON, Color flow imaging Image Quality: Excellent Patient Consent: Informed, written consent was obtained for the procedure Exam Location: A MASON was performed in the Nodulizer without complications Anesthesia Pharyngeal anesthesia with viscous [...] examination with the fellow Procedure Staff ReadingGroup: [facility] Referring Physician: RUDY KING Newspaper Distributor Supervisor: DORIAN Walker Ordering Physician: Hay William MD [...] Alba Mena MD PGY-3 Internal Medicine Resident [facility] Cosigned by Hay William MD at 04/20/2025 [...] from the original note were not included. [facility] Medicine Daily Progress Note - 04/20/2025 12:06 PM; Room: Counts include 234 beds at the [facility]- Admission: 04/19/2025 10:46 AM; Length of stay: 1 days THE HOSPITALIST TEAM PREFERS TO USE [employer] FOR NON-URGENT COMMUNICATION 7AM- 7PM. IF I DO NOT RESPOND WITHIN 20 MINUTES OR URGENT MATTERS, PLEASE CALL THROUGH THE [employer] ARTICLES. FROM 7PM-7AM, PLEASE PAGE [phone](COVR). Code Status: Full Code Barriers to Discharge: Still hypotension. Follow up repeated echo. Follow up cultures Expected Discharge Date: Discharge Destination: home Overview Patient is seen for evaluation and management of pericardial effusion, concern for tamponade, hypotension. Subjective Patient is still hypotensive but denies dizziness, CP, N/V. Physical Exam Visit Vitals BP 90/56 (BP Location: Right arm, Patient Position: Lying) Comment: MD notifed and aware Pulse 93 Temp 36.4 [...] showed early tamponade. Patient was taken to microbiology lab analyst for Pericardiocentesis. Right heart cath was not [...] due to hypotension. Coronary artery disease involving lac vieux coronary artery of lac vieux heart with angina pectoris - Nonobstructive. 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 [...] To reach the Clinical Dietitian, please utilize [employer] chat Wednesday-Wednesday from 8AM-4PM or call extension [phone]. For weekends (Wednesday-Wednesday) and holidays, the Clinical Dietitian can be reached via pager [phone]) from 9AM-3PM. The Clinical Nutrition Department is unable to respond to [employer] chat messages on Sundays and hols. [1] Past Medical History: Diagnosis Date Asthma [...] an 69 y.o. male who came from [place] with chest pain with radiation to neck andback. Past medical history of heart failure with reduced ejection fraction, hypertension, coronary artery disease, cardiomyopathy nonischemic (AICD placed), hyperlipidemia, atrial fibrillation statuspost [facility] , asthma. Patient presents from [place] with chest pain radiating to the neck [...] elevated wedge pressure and RV pressures. A Boston-Shannan catheter was placed for further monitoring and the patient was transferred to the medical ICU. PMH: Patient has a past medical history of Asthma (07/29/2012), CHF (congestive heart failure) ([facility]), Coronary artery disease, History of [...] LDL 69 04/24/2025 No results found for: [id number] , IRON , TIBC , C3 , [...] Performed: Right heart catheterization. Placement of a DIRECTOR OF DIGITAL MARKETING [place]-Shannan catheter for hemodynamic monitoring. Access into the right internal jugular vein under ultrasound guidance. Methods: Procedure was explained to the patient with risks and benefits; he signed informed consent. he was brought to the microbiology lab analyst in a fasting state. The right neck area was prepped and draped in usual fashion. Micropuncture technique was used for access under ultrasound guidance into the right internal jugular vein. A 6-American x 11 cm sheath was placed. A 6-American Carrasquillo catheter was used for right heart catheterization and measurement of pressures and calculation of cardiac output using the estimated [place] method. Carrasquillo catheter was removed. Over a wire to the access sheath was upsized to a 9 American introducer sheath. A DIRECTOR OF DIGITAL MARKETING Boston-Shannan catheter was advanced with the aid of a V18 wire and the distal end of the catheter was advanced to the distal segment of the right pulmonary artery. The Boston-Shannan catheter was secured in place. he tolerated [...] with biventricular failure. Successful placement of a DIRECTOR OF DIGITAL MARKETING Boston-Shannan catheter to guide management of heart failure. [...] on 04/20 due to resolution of effusion Boston Shannan placed on 04/24 PA 37/24 (30) [...] Pressor support: Milrinone Lines (location & placement): Boston Shannan DVT prophylaxis: Heparin subq Diet: Regular Code Status: FULL This note was completed using a voice employment evaluator/case manager system. Every effort was made to ensure accuracy. However, inadvertent computerized employment evaluator/case manager errors may be present. Karsten Gage PGY2 IM Resident [facility] 04/24/25 4:38 PM [1] Current Facility-Administered Medications: acetaminophen (Tylenol) tablet 650 mg, 650 mg, oral, q6h PRN, Benedict Christopher MD albuterol 90 mcg/actuation inhaler 1 puff, 1 puff, inhalation, BID PRN, Benedict Christopher MD allopurinol (Zyloprim) tablet 300 mg, 300 mg, oral, Daily, Benedict Christopher MD, 300 mg at 04/24/25 09 aspirin chewable tablet 81 mg, 81 mg, oral, Daily with breakfast, Benedict Christopehr MD, 81 mg at 04/24/25 09 atorvastatin (Lipitor) tablet 40 mg, 40 mg, oral, Nightly, Benedict Christopher MD, 40 mg at 04/23/25 2130 clopidogrel (Plavix) tablet 75 mg, 75 mg, [...] Daily, Benedict Christopher MD, 40 mg at 8 metoprolol succinate XL (Toprol-XL) 24 hr split [...] of Asthma (07/29/2012), CHF (congestive heart failure) ([facility]), Coronary artery disease, History of [...] Value Ventricular Rate 99 Atrial Rate 99 HI Interval 196 QRS DURATION 104 QT Interval 322 QTC CALCULATION(BAZETT) 413 P Jarreau 43 R-Jarreau 21 T Wave Jarreau 67 Impression Normal sinus rhythm Low voltage [...] Bubble Study Result Date: 04/19/2025 1 1 [facility] Heart Station [address] [place] [address] [phone] (fax) Echocardiogram-[facility] Name: KRISTY DOHERTY Study Date: 04/19/2025 12:46 PM B/P: 97 mmHg/71 mmHg HR: Date of : 1955 Location: [facility] Height: 68 in. Age: 69 year(s) Patient [...] early tamponade physiology. Procedure Staff Reading Group: [facility] Newspaper Distributor Supervisor: Bryanna Cazares RDCS Ordering Physician: HAKAN Canchola signed by MD Mitesh Vernon on 04/19/2025 at 01:44 PM Limited Transthoracic Echo (TTE) w/wo Contrast, Color Flow, Imaging Agent, Strain, 3D, Bubble Study Result Date: 02/07/2025 1 1 [facility] Heart Station [address] [place] [address] [phone] (fax) Echocardiogram-[facility] Name: KRISTY DOHERTY Study Date: 02/07/2025 08:02 AM B/P: 118 mmHg/85 mmHg HR: 63 bpm Date of : 1955 Location: [facility] Height: 68 in. Age: 69 year(s) Patient [...] No pericardial effusion. Procedure Staff Reading Group: [facility] Referring Physician: RUDY KING Newspaper Distributor Supervisor: June Shoots, BS, RDCS Ordering Physician: CHUCK FUNEZ Transesophageal echo (MASON) Result Date: 12/01/2024 1 [facility] Heart Station [address] [place] [address] [phone] (fax) Transesophageal Echocardiogram-[facility] Name: KRISTY DOHERTY Study Date: 12/01/2024 12:00 PM B/P: 134 mmHg/87 mmHg HR: 80 bpm Date of : 1955 Location: [facility] Height: 68 in. Age: 69 year(s) Patient Room: Weight: 194 lb. Gender: Male PatientStatus: OutPt BSA: 2.02 m2 Indication: Atrial Fibrillation, Pre-Watchman Examination: MASON, Color flow imaging Image Quality: Excellent Patient Consent: Informed, written consent was obtained for the procedure Exam Location: A MASON was performed in the Nodulizer without complications Anesthesia Pharyngeal anesthesia with viscous [...] examination with the fellow Procedure Staff ReadingGroup: [facility] Referring Physician: RUDY KING Newspaper Distributor Supervisor: DORIAN Walker Ordering Physician: Hay William MD No nuclear medicine results found for the past 12 months Relevant Imaging Results Complete Echo (TTE) w/wo Imaging Agent, Strain, 3D, Bubble Study 1 1 [facility] Heart Station [address] [place] [address] [phone] (fax) Echocardiogram-[facility] Name: KRISTY DOHERTY Study Date: 04/19/2025 12:46 PM B/P: 97 mmHg/71 mmHg HR: Date of : 1955 Location: [facility] Height: 68 in. Age: 69 year(s) Patient [...] early tamponade physiology. Procedure Staff Reading Group: [facility] Newspaper Distributor Supervisor: Bryanna Cazares RDCS Ordering Physician: HAKAN REYES [...] with any questions Brenden Vivar MD PGY-4 Staff Certified Nurse Midwife [facility] [1] Family History Problem Relation Name Age [...] Agent, Strain, 3D, Bubble Study 1 1 [facility] Heart Station [address], [place] [phone] (fax) Echocardiogram-[facility] Name: KRISTY DOHERTY Study Date: 04/19/2025 12:46 PM B/P: 97 mmHg/71 mmHg HR: Date of : 1955 Location: [facility] Height: 68 in. Age: 69 year(s) Patient [...] early tamponade physiology. Procedure Staff Reading Group: [facility] Newspaper Distributor Supervisor: Bryanna Cazares RDCS Ordering Physician: HAKAN REYES [...] Date Asthma 07/29/2012 CHF (congestive heart failure) ([facility]) Coronary artery disease History of [...] PM THE HOSPITALIST TEAM PREFERS TO USE [employer] CHAT FOR NON-URGENT COMMUNICATION 7AM- 7PM. IF I DO NOT RESPOND WITHIN 20 MINUTES OR URGENT MATTERS, PLEASE CALL THROUGH THE [employer] ARTICLES. FROM 7PM-7AM, PLEASE PAGE [phone](COVR). Chief Complaint Chest pain History of Present Illness Kristy Doherty is an 69 y.o. male who came [place] with chest pain with radiation to neck andback. Past medical history of heart failure with reduced ejection fraction, hypertension, coronary artery disease, cardiomyopathy nonischemic (AICD placed), hyperlipidemia, atrial fibrillation statuspost [facility] , asthma. Patient presents from [place] with chest pain radiating to the neck [...] small pericardial effusion. Workup was negative for [place] Daily Update: patient arrived from [place]. Pain has improved to 2/10 Today's Plan: [...] patients blood pressure Coronary artery disease involving lac vieux coronary artery of lac vieux heart with angina pectoris Continue aspirin plavix [...] this hospital stay by a member of [facility] Medicine. 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 Pulmonary Disease & Critical Care Medicine [facility] Cosigned by Pepe Anthony MD at 04/28/2025 [...] ESTIMATED BLOOD LOSS: 5 ml Ayden Ordaz [facility] Fellow [facility] Cosigned by Pepe Anthony MD at [...] at this time - follow up with [facility] on AVS - Patient may benefit from [facility] for therapies or Outpatient therapies - rolling walker recommended by OT; [id number] and script sent to [email or web address] yesterday; awaiting update if insurance will cover and if [facility] can deliver to bedside 1000 - met with Patient in room; reviewed discharge planning - Patient agreeable to [facility] (does not prefer outpatient) but wants to wait until arrives to hospital today before choosing agencies to send any referrals - Patient agreeable to rolling walker arrangements; called [email or web address] and they confirmedthey have the rolling walker out for delivery today, to bring to bedside at hospital 1230 - met with Patient and spouse and reviewed discharge planning - Patient and spouse agreeable to [facility], provided preference of 1. [facility] in [place] 2. [facility]; referrals sent, via [employer] system, awaiting replies - information provided that [email or web address] is planned to deliver a new rolling [...] feel safe doing that alone with Patient; insurance writer providedinformation/education about usual PCP process, but agreeable to asking treating physician this admission if they feel hospital bed is appropriate for Patient and if they deem appropriate to provide prescription and clinical documentation; awaiting outcome 1320 - called [facility] as Patient's spouse requested them; they do not offer hospital beds and recommended contacting [facility]; talked with Patient and spouse, they are agreeable to [facility]; referral for hospital bed faxed 1625 - Ru confirmed Patient received rolling walker [facility], [facility] confirmed they have made arrangements with family for deliveryto the home 1636 - AVS sent to [facility], via [employer] system * Renetta Broussard MD - 04/30/2025 6:08 PM EDTAssociated Order(s): IP CONSULT TO PALLIATIVE/INTEGRATIVE CARE Images from the original note were not included. SINCE PALLIATIVE CARE CONSULTATION Date of Service: 04/30/2025 [...] has a known reduced ejection fraction with [place] heart Association class 2-3. He has an ICD placed but according to the patient it has never gone off. Echocardiogram on April 23 showed ejection fraction 20% with severely reduced right ventricle systolic function, dncn-vt-[id number] MR, mild AV regurg, mild TR, elevated [...] history: Patient is not and lives in [place] with his significant other. Her nameis Lilia [...] able to go to a trip to [place] this past year and he is very [...] if we can be of additional assistance [phone]. Total time-60 minutes, [id number] Electronically signed by: Renetta Broussard MD [1] [...] at 04/30/25 1703, 200 mL/hr at 04/30/25 170 sodium chloride ([place]) 0.65 % nasal spray 1 spray, 1 [...] s/p Watchman procedure, who was transferred from [place] with initial chief complaint of chest and [...] Last Dose Status albuterol 90 mcg/actuation inhaler [id number] Inhale 1 puff 2 times daily. Historical Provider, MD Active allopurinol (Zyloprim) 300 mg tablet [id number] Yes Take 300 mg by mouth in the morning. German Walden MD 04/18/2025 Morning Active amoxicillin (Amoxil) 500 mg tablet [id number] No Take 4 tablets (2,000 mg) by mouth 1 (one) time if needed (30-60 minute prior to dental procedures) for up to 20 doses. Patient not taking: Reported on 04/19/2025 Hay William MD Unknown Active aspirin 81 mg chewable tablet [id number] Yes Chew 1 tablet (81 mg) with breakfast. Hay William MD 04/18/2025 Morning Active atorvastatin (Lipitor) 40 mg tablet [id number] Yes Take 1 tablet (40 mg) by mouth at bedtime. Hay William MD 04/18/2025 Bedtime Active clopidogrel (Plavix) 75 mg tablet [id number] Yes Take 1 tablet (75 mg) by mouth in the morning. Hay William MD 04/18/2025 Morning Active dapagliflozin propanediol (Farxiga) 10 mg [id number] Yes Take 1 tablet (10 mg) by mouth once daily asdirected. Shania Chauhan CNP 04/18/2025 Morning Active Dupixent Syringe 300 mg/2 mL syringe injection [id number] No Inject 300 mg under the skin every 14 (fourteen) days. German Walden MD 04/07/2025 Active fluticasone (Flonase) 50 mcg/actuation nasal spray [id number] Yes Administer 1 spray into each nostril two times daily. Shake gently. Before first use, prime pump. After use, clean tip and replace cap.German Walden MD 04/18/2025 Bedtime Active fluticasone propion-salmeteroL (Advair Diskus) 500-50 mcg/dose diskus inhaler [id number] Yes Inhale 1puff two times daily. German Walden MD 04/18/2025 Bedtime Active metoprolol succinate XL (Toprol-XL) 50 mg 24 hr tablet [id number] Yes Take 1 tablet (50 mg) by mouth once daily as directed. Do not crush or chew. Hay William MD 04/18/2025 Morning Active sacubitril-valsartan (Entresto) 97-103 mg tablet [id number] Yes Take 1 tablet by mouth two times daily. Hay William MD 04/18/2025 Bedtime Active spironolactone (Aldactone) 25 mg tablet [id number] Yes Take 1 tablet (25 mg) by [...] Date Asthma 07/29/2012 CHF (congestive heart failure) ([facility]) Coronary artery disease History of malignant neoplasm [...] Conklin MD Nephrology Fellow PGY 5 - [facility] Nephrology Pager: [phone] Phone (7am - 4pm): [phone] [1] Allergies Allergen Reactions Octacosanol Unknown Other [...] of Asthma (07/29/2012), CHF (congestive heart failure) ([facility]), Coronary artery disease, History of [...] Value Ventricular Rate 99 Atrial Rate 99 HI Interval 196 QRS DURATION 104 QT Interval 322 QTC CALCULATION(BAZETT) 413 P Jarreau 43 R-Jarreau 21 T Wave Jarreau 67 Impression Normal sinus rhythm Low voltage [...] Bubble Study Result Date: 04/19/2025 1 1 [facility] Heart Station [address] [place] [address] [phone] (fax) Echocardiogram-[facility] Name: KRISTY DOHERTY Study Date: 04/19/2025 12:46 PM B/P: 97 mmHg/71 mmHg HR: Date of : 1955 Location: [facility] Height: 68 in. Age: 69 year(s) Patient [...] early tamponade physiology. Procedure Staff Reading Group: [facility] [employer] Supervisor: Bryanna Cazares RDCS Ordering Physician: HAKAN Moodytronically signed by MD Mitesh Vernon on 04/19/2025 at 01:44 PM Limited Transthoracic Echo (TTE) w/wo Contrast, Color Flow, Imaging Agent, Strain, 3D, Bubble Study Result Date: 02/07/2025 1 1 [facility] Heart Station [address] [place] [address] [phone] (fax) Echocardiogram-[facility] Name: KRISTY DOHERTY Study Date: 02/07/2025 08:02 AM B/P: 118 mmHg/85 mmHg HR: 63 bpm Date of : 1955 Location: [facility] Height: 68 in. Age: 69 year(s) Patient [...] No pericardial effusion. Procedure Staff Reading Group: [facility] Referring Physician: RUDY KING Newspaper Distributor Supervisor: SAMI Starr, RDCS Ordering Physician: CHUCK FUNEZ Transesophageal echo (MASON) Result Date: 12/01/2024 1 [facility] Heart Station [address] [place] [address] [phone] (fax) Transesophageal Echocardiogram-[facility] Name: KRISTY DOHERTY Study Date: 12/01/2024 12:00 PM B/P: 134 mmHg/87 mmHg HR: 80 bpm Date of : 1955 Location: [facility] Height: 68 in. Age: 69 year(s) Patient Room: Weight: 194 lb. Gender: Male PatientStatus: OutPt BSA: 2.02 m2 Indication: Atrial Fibrillation, Pre-Watchman Examination: MASON, Color flow imaging Image Quality: Excellent Patient Consent: Informed, written consent was obtained for the procedure Exam Location: A MASON was performed in the Nodulizer without complications Anesthesia Pharyngeal anesthesia with viscous [...] examination with the fellow Procedure Staff ReadingGroup: [facility] Referring Physician: RUDY KING Newspaper Distributor Supervisor: DORIAN Walker Ordering Physician: Hay William MD No nuclear medicine results found for the past 12 months Relevant Imaging Results Complete Echo (TTE) w/wo Imaging Agent, Strain, 3D, Bubble Study 1 1 [facility] Heart Station [address] [id number] [phone] (fax) Echocardiogram-[facility] Name: KRISTY DOHERTY Study Date: 04/19/2025 12:46 PM B/P: 97 mmHg/71 mmHg HR: Date of : 1955 Location: [facility] Height: 68 in. Age: 69 year(s) Patient [...] early tamponade physiology. Procedure Staff Reading Group: [facility] [employer] Supervisor: Bryanna Cazares RDCS Ordering Physician: HAKAN REYES [...] with any questions Brenden Vivar MD PGY-4 Staff Certified Nurse Midwife [facility] [1] Family History Problem Relation Name Age [...] are going to take him to the [facility] for emergent pericardiocentesis documented in this encounter [...] Brenda Ayers RN Rapid Response Team Nurse [phone] 05/03/2025 4:27 PM * Yamila Jacques LPN [...] nurse, but encouraged to reach out to TRAFFIC RATE CLERK if anything changes over night. Johnathan Chowdhury RN Rapid Response Team Nurse [phone] 05/03/2025 12:23 AM * Kelly Nuno RN [...] at this time, will review and notify insurance writer if/when to administer. documented in this encounter [...] EDTAssociated Problem(s): Cardiogenic shock (CMS/HCC) - Required [place] Shannan and dobutamine in ICU. - Improving. * Assessment & Plan Note - Benedict Pascual MD - 05/03/2025 12:13 PM EDTAssociated Problem(s): Chest pain - Echo on admission showed early tamponade. Patient was taken to microbiology lab analyst for Pericardiocentesis. Right heart cath was not suggestive for tamponade. 300 ml serosanguinous fluid. - Repeated echo showed mild effusion. * Assessment & Plan Note - Benedict Pascual MD - 05/03/2025 12:13 PM EDTAssociated Problem(s): Pericardial effusion - Echo on admission showed early tamponade. Patient was taken to microbiology lab analyst for Pericardiocentesis. 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 - [...] EDTAssociated Problem(s): Right ventricular dysfunction - Required [place] Shannan and dobutamine in ICU. - Improving. [...] from fall injury Outcome: Progressing Flowsheets (Taken 05/03/2025 0816) Free from fall injury: Assess patient frequently for physical needs Identify cognitive and physical deficits and behaviors that affect risk of falls Roosevelt fall precautions as indicated by assessment Educate [...] the shift include stable labs * Care Uyen - Little Hector RN - 05/01/2025 10:59 [...] Bere Qiu - Viral Quiles RN - 04/27/2025 8:58 [...] Request Once Comments: Please send up a [facility] Boost Chocolate. Thank you! 04/25/25 1227 [...] showed early tamponade. Patient was taken to microbiology lab analyst for Pericardiocentesis. Right heart cath was not suggestive for tamponade. 300 ml serosanguinous fluid. - Monitor BP. - Continue colchicine per Cardiology. - Repeated echo showed mild effusion. * Assessment & Plan Note - Benedict Pascual MD - 04/24/2025 4:13 PM EDTAssociated Problem(s): Pericardial effusion - Echo showed early tamponade. Patient was taken to microbiology lab analyst for Pericardiocentesis. 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 - Continue aspirin, Plavix, Lipitor. * Pre-Sedation Documentation - Hay William MD - 04/24/2025 2:43 PM EDT Patient: Kristy Doherty Procedure Information Date/Time: 04/24/25 1500 Procedure: Right heart cath Location: [facility] CONFERENCE RESERVATIONIST 3 / [facility] (Cath) Providers: Hay William MD [...] Not Interested Does the patient have a residential case manager assigned to them through their [...] VSS, safety * Care Plan - Reginald Stpales RN - 04/23/2025 10:31 PM EDT The [...] showed early tamponade. Patient was taken to microbiology lab analyst for Pericardiocentesis. Right heart cath was not suggestive for tamponade. 300 ml serosanguinous fluid. - Monitor BP. - Continue colchicine per Cardiology. - Repeated echo showed mild effusion. * Assessment & Plan Note - Benedict Pascual MD - 04/23/2025 3:28 PM EDTAssociated Problem(s): Pericardial effusion - Echo showed early tamponade. Patient was taken to microbiology lab analyst for Pericardiocentesis. 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 - [...] showed early tamponade. Patient was taken to microbiology lab analyst for Pericardiocentesis. Right heart cath was not suggestive for tamponade. 300 ml serosanguinous fluid and pigtail was placed. - Monitor BP. - Continue colchicine per Cardiology. - Repeat echo on Monday 04/23. * Assessment & Plan Note - Osito Kline MD - 04/22/2025 8:13 PM EDTAssociated Problem(s): Pericardial effusion - Echo showed early tamponade. Patient was taken to microbiology lab analyst for Pericardiocentesis. 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 - [...] showed early tamponade. Patient was taken to microbiology lab analyst for Pericardiocentesis. Right heart cath was not [...] showed early tamponade. Patient was taken to microbiology lab analyst for Pericardiocentesis. 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 - [...] showed early tamponade. Patient was taken to microbiology lab analyst for Pericardiocentesis. Right heart cath was not suggestive for tamponade. 300 ml serosanguinous fluid and pigtail was placed. - Monitor BP. - Continue colchicine per Cardiology. - Follow up blood and fluid cx. - Repeat echo today. * Assessment & Plan Note - Benedict Pascual MD - 04/20/2025 12:20 PM EDTAssociated Problem(s): Pericardial effusion - Echo showed early tamponade. Patient was taken to microbiology lab analyst for Pericardiocentesis. Right heart cath was not [...] equivalent. 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 - [...] and behaviors that affect risk of falls Roosevelt fall precautions as indicated by assessment Educate [...] small pericardial effusion. Workup was negative for [place] Daily Update: patient arrived from [facility]. Pain has improved to 2/10 Today's Plan: [...] small pericardial effusion. Workup was negative for [place] Daily Update: patient arrived from [facility]. 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 Continue aspirin plavix [...] Description 05/14/2025 1:40 PM EDT Office Visit [facility] [address] [place] [address] Elliott Nettles, IV THERAPY NURSE [address] [place] [address] Pending Results Name Type Priority Associated Diagnoses [...] WITH DIFFERENTIAL Routine 04/19/2025 3:23 PM EDT NON-FOURDRINIER TENDER CYTOLOGY - CELLULAR EXAM Routine 04/19/2025 3:23 [...] - 145 mmol/L 05/04/2025 9:10 AM EDT [facility] ([facility]) Potassium 3.7 3.5 - 5.1 mmol/L 05/04/2025 9:10 AM EDT [facility] ([facility]) Chloride 94(L) 98 - 107 mmol/L 05/04/2025 9:10 AM T [facility] ([facility]) CO2 23 21 - 31 mmol/L 05/04/2025 9:10 AM T [facility] ([facility]) BUN 25 7 - 25 mg/dL 05/04/2025 9:10 AM T [facility] ([facility]) Creatinine 1.58(H) 0.70 - 1.30 mg/dL 05/04/2025 9:10 AM T [facility] ([facility]) Glucose 81 70 - 100 mg/dL 05/04/2025 9:10 AM T [facility] ([facility]) Calcium 7.3(L) 8.6 - 10.3 mg/dL 05/04/2025 9:10 AM [facility] ([facility]) Anion Gap 15 7 - 20 mmol/L 05/04/2025 9:10 AM [facility] ([facility]) eGFR 47.1(L) >60.0 mL/min/1. 73m*2 05/04/2025 9:10 AM T [facility] ([facility]) Comment:[facility] s estimated glomerular filtration rate (eGFR) [...] BUN/Creatinine Ratio 15.8 04/18 9:10 AM EDT [facility] ([facility]) Blood Venous blood specimen / Unknown Venipuncture / Unknown 05/04/2025 4:18 AM EDT 05/04/2025 4:46 AM EDT Benedict Pascual MD LAB BLOOD ORDERABLES Final Resul t [facility] ([facility]) [address] [place] [address] * (ABNORMAL) CBC auto differential (05/04/2025 4:18 AM EDT) Auto WBC 6.04 4.00 - 10.60 10*3/uL 05/04/2025 5:15 AM EDT [facility] ([facility]) RBC 3.10(L) 4.20 - 5.70 10*6/uL 05/04/2025 5:15 AM EDT [facility] ([facility]) Hemoglobin 9.8(L) 13.0 - 17.0 g/dL 05/04/2025 5:15 AM EDT [facility] ([facility]) Hematocrit 28.3(L) 39.0 - 50.0 % 05/04/2025 5:15 AM EDT [facility] ([facility]) MCV 91.3 82.0 - 98.0 fL 05/04/2025 5:15 AM EDT [facility] ([facility]) MCH 31.6 27.0 - 33.0 pg 05/04/2025 5:15 AM EDT [facility] ([facility]) MCHC 34.6 32.0 - 35.0 g/dL 05/04/2025 5:15 AM EDT [facility] ([facility]) RDW 14.7 11.5 - 15.0 % 05/04/2025 5:15 AM EDT [facility] ([facility]) Neutrophils % 70.4 40.0 - 72.0 % 05/04/2025 5:15 AM EDT [facility] ([facility]) Lymphocytes % 14.2(L) 20.0 - 45.0 % 05/04/2025 5:15 AM EDT [facility] ([facility]) Monocytes % 14.2(H) 5.0 - 12.0 % 05/04/2025 5:15 AM T [facility] ([facility]) Eosinophils % 0.5 0.0 - 6.0 % 05/04/2025 5:15 AM T [facility] ([facility]) Basophils % 0.2 0.0 - 1.0 % 05/04/2025 5:15 AM T [facility] ([facility]) Neutrophils Absolute 4.25 1.60 - 7.60 10*3/uL 05/04/2025 5:15 AM T [facility] ([facility]) Lymphocytes Absolute 0.86(L) 1.20 - 4.00 10*3/uL 05/04/2025 5:15 AM T [facility] ([facility]) Monocytes Absolute 0.86 0.10 - 1.00 10*3/uL 05/04/2025 5:15 AM [facility] ([facility]) Eosinophils Absolute 0.03 0.00 - 0.50 10*3/uL 05/04/2025 5:15 AM T [facility] ([facility]) Basophils Absolute 0.01 0.00 - 0.20 10*3/uL 05/04/2025 5:15 AM [facility] ([facility]) Platelets 192 150 - 400 10*3/uL 05/04/2025 5:15 AM T [facility] ([facility]) nRBC % 0.0 0 % 05/04/2025 5:15 AM [facility] ([facility]) Immature Granulocytes % 0.5 0.0 - 1.0 % 05/04/2025 5:15 AM [facility] ([facility]) Immature Granulocytes Absolute 0.03 0.00 - 0.20 10*3/uL 05/04/2025 5:15 AM [facility] ([facility]) Blood Venous blood specimen / Unknown Venipuncture / Unknown 05/04/2025 4:18 AM EDT 05/04/2025 4:48 AM EDT Pepe Anthony MD LAB BLOOD ORDERABLES Final Resu lt Performing Organization Address City/[facility]/ZIP Co de Phone Number [facility]) [address] [place] [phone] * Phosphorus (05/04/2025 4:18 AM EDT) Phosphorus 3.1 2.5 - 5.0 mg/dL 05/04/2025 5:12 AM EDT [facility] ([facility]) Blood Venous blood specimen / Unknown Venipuncture / Unknown 05/04/2025 4:18 AM EDT 05/04/2025 4:46 AM EDT us Dg Power MD LAB BLOOD ORDERABLES Final Res ult Performing Organization Address [facility] Co de Phone Number [facility]) [address] [place] [phone] * Magnesium (05/04/2025 4:18 AM EDT) Magnesium 2.0 1.9 - 2.7 mg/dL 05/04/2025 5:12 AM EDT [facility]) Blood Venous blood specimen / Unknown Venipuncture / Unknown 05/04/2025 4:18 AM EDT 05/04/2025 4:46 AM EDT Dg Power MD LAB BLOOD ORDERABLES Final Res ult Performing Organization Address City/[facility]/ZIP Co de Phone Number [facility]) [address] [place], [place] [phone] * US neck (05/03/2025 3:56 PM EDT) [...] as indicated. Electronically signed: Virgilio Barillas MD. Benedict Pascual MD IMG US PROCEDURES Final Result * (ABNORMAL) Body fluid culture (05/03/2025 12:59 PM EDT) Culture Light Growth Staphylococcus lugdunensis(A) FLORA 05/05/2025 7:07 AM EDT [facility] ([facility]) Comment: Gram Stain Result Moderate Polymorphonuclear leukocytes 05/05/2025 7:07 AM EDT [facility] ([facility]) Gram Stain Result No organisms seen 05/05/2025 7:07 AM EDT [facility] ([facility]) Fluid Neck structure / Unknown Non-blood Collection / Unknown 05/03/2025 12:59 PM EDT 05/03/2025 1:20 PM EDT Narrative [facility] ([facility]) - 05/05/2025 7:07 AM EDT Rare Growth Skin Darlyn Organism Antibiotic Method Susceptibility Staphylococcus lugdunensis Clindamycin FLORA <=0.5 ug/ml: Susceptible Staphylococcus lugdunensis Oxacillin FLORA <=0.25 ug/ml: Susceptible Staphylococcus lugdunensis Tetracycline FLORA <=0.5 ug/ml: Susceptible Staphylococcus lugdunensis Vancomycin FLORA <=0.5 ug/ml: Susceptible us Benedict Pascual MD LAB MICROBIOLOGY - GENERAL ORDER JAY Final Result [facility] ([facility]) [address] [place] [address] * (ABNORMAL) Basic metabolic panel (05/03/2025 3:51 AM EDT) Sodium 129(L) 136 - 145 mmol/L 05/03/2025 6:21 AM EDT [facility] ([facility]) Potassium 4.1 3.5 - 5.1 mmol/L 05/03/2025 6:21 AM EDT [facility] ([facility]) Chloride 94(L) 98 - 107 mmol/L 05/03/2025 6:21 AM EDT [facility] ([facility]) CO2 25 21 - 31 mmol/L 05/03/2025 6:21 AM EDT [facility] ([facility]) BUN 24 7 - 25 mg/dL 05/03/2025 6:21 AM EDT [facility] ([facility]) Creatinine 1.75(H) 0.70 - 1.30 mg/dL 05/03/2025 6:21 AM EDT [facility] ([facility]) Glucose 89 70 - 100 mg/dL 05/03/2025 6:21 AM EDT [facility] ([facility]) Calcium 7.3(L) 8.6 - 10.3 mg/dL 05/03/2025 6:21 AM EDT [facility] ([facility]) Anion Gap 14 7 - 20 mmol/L 05/03/2025 6:21 AM EDT [facility] ([facility]) eGFR 41.6(L) >60.0 mL/min/1. 73m*2 05/03/2025 6:21 AM EDT [facility] ([facility]) Comment:[facility] s estimated glomerular filtration rate (eGFR) [...] BUN/Creatinine Ratio 13.7 04/18 6:21 AM EDT [facility] ([facility]) Blood Venous blood specimen / Unknown Venipuncture / Unknown 05/03/2025 3:51 AM EDT 05/03/2025 4:14 AM EDT Dg Power MD LAB BLOOD ORDERABLES Final Res ult [facility] ([facility]) [address] [place] [address] * (ABNORMAL) CBC auto differential (05/03/2025 3:51 AM EDT) Auto WBC 6.22 4.00 - 10.60 10*3/uL 05/03/2025 4:31 AM EDT [facility] ([facility]) RBC 2.95(L) 4.20 - 5.70 10*6/uL 05/03/2025 4:31 AM EDT [facility] ([facility]) Hemoglobin 9.2(L) 13.0 - 17.0 g/dL 05/03/2025 4:31 AM EDT [facility] ([facility]) Hematocrit 27.4(L) 39.0 - 50.0 % 05/03/2025 4:31 AM EDT [facility] ([facility]) MCV 92.9 82.0 - 98.0 fL 05/03/2025 4:31 AM EDT [facility] ([facility]) MCH 31.2 27.0 - 33.0 pg 05/03/2025 4:31 AM EDT [facility] ([facility]) MCHC 33.6 32.0 - 35.0 g/dL 05/03/2025 4:31 AM EDT [facility] ([facility]) RDW 14.9 11.5 - 15.0 % 05/03/2025 4:31 AM EDT [facility] ([facility]) Neutrophils % 66.0 40.0 - 72.0 % 05/03/2025 4:31 AM EDT [facility] ([facility]) Lymphocytes % 15.8(L) 20.0 - 45.0 % 05/03/2025 4:31 AM [facility] ([facility]) Monocytes % 16.1(H) 5.0 - 12.0 % 05/03/2025 4:31 AM [facility] ([facility]) Eosinophils % 0.8 0.0 - 6.0 % 05/03/2025 4:31 AM [facility] ([facility]) Basophils % 0.2 0.0 - 1.0 % 05/03/2025 4:31 AM [facility] ([facility]) Neutrophils Absolute 4.11 1.60 - 7.60 10*3/uL 05/03/2025 4:31 AM [facility] ([facility]) Lymphocytes Absolute 0.98(L) 1.20 - 4.00 10*3/uL 05/03/2025 4:31 AM [facility] ([facility]) Monocytes Absolute 1.00 0.10 - 1.00 10*3/uL 05/03/2025 4:31 AM [facility] ([facility]) Eosinophils Absolute 0.05 0.00 - 0.50 10*3/uL 05/03/2025 4:31 AM [facility] ([facility]) Basophils Absolute 0.01 0.00 - 0.20 10*3/uL 05/03/2025 4:31 AM [facility] ([facility]) Platelets 187 150 - 400 10*3/uL 05/03/2025 4:31 AM [facility] ([facility]) nRBC % 0.0 0 % 05/03/2025 4:31 AM [facility] ([facility]) Immature Granulocytes % 1.1(H) 0.0 - 1.0 % 05/03/2025 4:31 AM [facility] ([facility]) Immature Granulocytes Absolute 0.07 0.00 - 0.20 10*3/uL 05/03/2025 4:31 AM [facility] ([facility]) Blood Venous blood specimen / Unknown Venipuncture / Unknown 05/03/2025 3:51 AM EDT 05/03/2025 4:15 AM EDT Pepe Anthony MD LAB BLOOD ORDERABLES Final Resu lt Performing Organization Address [facility]/ZIP Co de Phone Number [facility]) [address] [place] [phone] * (ABNORMAL) Phosphorus (05/03/2025 3:51 AM EDT) Phosphorus 1.8(L) 2.5 - 5.0 mg/dL 05/03/2025 4:43 AM EDT [facility] ([facility]) Blood Venous blood specimen / Unknown Venipuncture / Unknown 05/03/2025 3:51 AM EDT 05/03/2025 4:14 AM EDT Dg Power MD LAB BLOOD ORDERABLES Final Res ult Performing Organization Address [facility]/ZIP Co de Phone Number [facility]) [address] [place] [phone] * (ABNORMAL) Magnesium (05/03/2025 3:51 AM EDT) Magnesium 1.8(L) 1.9 - 2.7 mg/dL 05/03/2025 4:43 AM EDT [facility]) Blood Venous blood specimen / Unknown Venipuncture / Unknown 05/03/2025 3:51 AM EDT 05/03/2025 4:14 AM EDT Dg Power MD LAB BLOOD ORDERABLES Final Res ult [facility]) [address] [place] [phone] * (ABNORMAL) CBC auto differential (05/02/2025 3:13 AM EDT) Auto WBC 5.94 4.00 - 10.60 10*3/uL 05/02/2025 3:29 AM EDT [facility]) RBC 2.63(L) 4.20 - 5.70 10*6/uL 05/02/2025 3:29 AM EDT [facility] ([facility]) Hemoglobin 8.4(L) 13.0 - 17.0 g/dL 05/02/2025 3:29 AM EDT [facility] ([facility]) Hematocrit 24.6(L) 39.0 - 50.0 % 05/02/2025 3:29 AM EDT [facility] ([facility]) MCV 93.5 82.0 - 98.0 fL 05/02/2025 3:29 AM EDT [facility] ([facility]) MCH 31.9 27.0 - 33.0 pg 05/02/2025 3:29 AM EDT [facility] ([facility]) MCHC 34.1 32.0 - 35.0 g/dL 05/02/2025 3:29 AM T [facility] ([facility]) RDW 15.1(H) 11.5 - 15.0 % 05/02/2025 3:29 AM EDT [facility] ([facility]) Neutrophils % 67.0 40.0 - 72.0 % 05/02/2025 3:29 AM EDT [facility] ([facility]) Lymphocytes % 16.0(L) 20.0 - 45.0 % 05/02/2025 3:29 AM EDT [facility] ([facility]) Monocytes % 15.7(H) 5.0 - 12.0 % 05/02/2025 3:29 AM T [facility] ([facility]) Eosinophils % 0.3 0.0 - 6.0 % 05/02/2025 3:29 AM EDT [facility] ([facility]) Basophils % 0.2 0.0 - 1.0 % 05/02/2025 3:29 AM EDT [facility] ([facility]) Neutrophils Absolute 3.98 1.60 - 7.60 10*3/uL 05/02/2025 3:29 AM EDT [facility] ([facility]) Lymphocytes Absolute 0.95(L) 1.20 - 4.00 10*3/uL 05/02/2025 3:29 AM EDT [facility] ([facility]) Monocytes Absolute 0.93 0.10 - 1.00 10*3/uL 05/02/2025 3:29 AM EDT [facility] ([facility]) Eosinophils Absolute 0.02 0.00 - 0.50 10*3/uL 05/02/2025 3:29 AM EDT [facility] ([facility]) Basophils Absolute 0.01 0.00 - 0.20 10*3/uL 05/02/2025 3:29 AM EDT [facility] ([facility]) Platelets 153 150 - 400 10*3/uL 05/02/2025 3:29 AM EDT [facility] ([facility]) nRBC % 0.3(H) 0 % 05/02/2025 3:29 AM EDT [facility] ([facility]) Immature Granulocytes % 0.8 0.0 - 1.0 % 05/02/2025 3:29 AM EDT [facility] ([facility]) Immature Granulocytes Absolute 0.05 0.00 - 0.20 10*3/uL 05/02/2025 3:29 AM EDT [facility] ([facility]) Blood Venous blood specimen / Unknown Arterial Line / Unknown 05/02/2025 3:13 AM EDT 05/02/2025 3:22 AM EDT us Pepe Anthony MD LAB BLOOD ORDERABLES Final Resu lt [facility] ([facility]) [address] [place] [address] * Phosphorus (05/02/2025 3:13 AM EDT) Phosphorus 2.5 2.5 - 5.0 mg/dL 05/02/2025 4:00 AM EDT [facility] ([facility]) Blood Arterial blood specimen / Unknown Arterial Puncture / Unknown 05/02/2025 3:13 AM EDT 05/02/2025 3:19 AM EDT us Dg Power MD LAB BLOOD ORDERABLES Final Res ult [facility] ([facility]) [address] [place] [address], [place] [id number] * (ABNORMAL) Magnesium (05/02/2025 3:13 AM EDT) Pathologist [facility] Magnesium 1.8(L) 1.9 - 2.7 mg/dL 05/02/2025 4:00 AM EDT [facility] ([facility]) Blood Arterial blood specimen / Unknown Arterial Puncture / Unknown 05/02/2025 3:13 AM EDT 05/02/2025 3:19 AM EDT us Dg Power MD LAB BLOOD ORDERABLES Final Res ult [facility] ([facility]) [address] [place] [address] * (ABNORMAL) Comprehensive metabolic panel (05/02/2025 3:13 AM EDT) Pathologist [facility] Sodium 133(L) 136 - 145 mmol/L 05/02/2025 4:00 AM EDT [facility] ([facility]) Potassium 3.1(L) 3.5 - 5.1 mmol/L 05/02/2025 4:00 AM EDT [facility] ([facility]) Chloride 93(L) 98 - 107 mmol/L 05/02/2025 4:00 AM EDT [facility] [facility] ([facility]) CO2 33(H) 21 - 31 mmol/L 05/02/2025 4:00 AM EDT [facility] ([facility]) Anion Gap 10 7 - 20 mmol/L 05/02/2025 4:00 AM EDT [facility] ([facility]) BUN 20 7 - 25 mg/dL 05/02/2025 4:00 AM EDT [facility] ([facility]) Creatinine 1.69(H) 0.70 - 1.30 mg/dL 05/02/2025 4:00 AM EDT [facility] ([facility]) BUN/Creatinine Ratio 11.8 04/18 4:00 AM EDT [facility] ([facility]) Glucose 105(H) 70 - 100 mg/dL 05/02/2025 4:00 AM T [facility] ([facility]) Calcium 7.3(L) 8.6 - 10.3 mg/dL 05/02/2025 4:00 AM T [facility] ([facility]) AST 54(H) 13 - 39 U/L 05/02/2025 4:00 AM T [facility] ([facility]) ALT (SGPT) 129(H) 7 - 52 U/L 05/02/2025 4:00 AM T [facility] ([facility]) Alkaline Phosphatase 60 34 - 104 U/L 05/02/2025 4:00 AM EDT [facility] ([facility]) Total Protein 5.4(L) 6.0 - 8.3 g/dL 05/02/2025 4:00 AM T [facility] ([facility]) Albumin 3.1(L) 3.5 - 5.7 g/dL 05/02/2025 4:00 AM [facility] ([facility]) Total Bilirubin 0.7 0.3 - 1.0 mg/dL 05/02/2025 4:00 AM T [facility] ([facility]) eGFR 43.4(L) >60.0 mL/min/1. 73m*2 05/02/2025 4:00 AM [facility] ([facility]) Comment:[facility] s estimated glomerular filtration rate (eGFR) [...] MD LAB BLOOD ORDERABLES Final Resu lt [facility] ([facility]) [address] [place], [place] [phone] * (ABNORMAL) Phosphorus (05/01/2025 8:30 AM EDT) Pathologist [facility] Phosphorus 2.4(L) 2.5 - 5.0 mg/dL 05/01/2025 9:13 AM EDT [facility] ([facility]) Blood Arterial blood specimen / Unknown Arterial Puncture / Unknown 05/01/2025 8:30 AM EDT 05/01/2025 8:40 AM EDT us Pepe Anthony MD LAB BLOOD ORDERABLES Final Resu lt Performing Organization Address [facility] Co de Phone Number [facility] ([facility]) [address] [place] [address] * Magnesium (05/01/2025 8:30 AM EDT) Pathologist [facility] Magnesium 1.9 1.9 - 2.7 mg/dL 05/01/2025 9:13 AM EDT [facility] ([facility]) Blood Arterial blood specimen / Unknown Arterial Puncture / Unknown 05/01/2025 8:30 AM EDT 05/01/2025 8:40 AM EDT us Pepe Anthony MD LAB BLOOD ORDERABLES Final Resu lt Performing Organization Address [facility] Co de Phone Number [facility]) [address] [place] [phone] * (ABNORMAL) Basic metabolic panel (05/01/2025 8:30 AM EDT) Sodium 136 136 - 145 mmol/L 05/01/2025 9:13 AM EDT [facility] ([facility]) Potassium 3.9 3.5 - 5.1 mmol/L 05/01/2025 9:13 AM EDT [facility] ([facility]) Chloride 96(L) 98 - 107 mmol/L 05/01/2025 9:13 AM EDT [facility] ([facility]) CO2 35(H) 21 - 31 mmol/L 05/01/2025 9:13 AM EDT [facility] ([facility]) BUN 11 7 - 25 mg/dL 05/01/2025 9:13 AM EDT [facility] ([facility]) Creatinine 1.01 0.70 - 1.30 mg/dL 05/01/2025 9:13 AM EDT [facility] ([facility]) Glucose 99 70 - 100 mg/dL 05/01/2025 9:13 AM EDT [facility] ([facility]) Calcium 7.7(L) 8.6 - 10.3 mg/dL 05/01/2025 9:13 AM EDT [facility] ([facility]) Anion Gap 9 7 - 20 mmol/L 05/01/2025 9:13 AM EDT [facility] ([facility]) eGFR 80.5 >60.0 mL/min/1. 73m*2 05/01/2025 9:13 AM EDT [facility] ([facility]) Comment:[facility] s estimated glomerular filtration rate (eGFR) [...] individuals. BUN/Creatinine Ratio 10.9 04/18 9:13 AM EDT [facility] ([facility]) Blood Arterial blood specimen / Unknown Arterial Puncture / Unknown 05/01/2025 8:30 AM EDT 05/01/2025 8:40 AM EDT us Pepe Anthony MD LAB BLOOD ORDERABLES Final Resu lt [facility] ([facility]) [address] [place] [address] * Phosphorus (05/01/2025 3:05 AM EDT) Phosphorus 2.6 2.5 - 5.0 mg/dL 05/01/2025 4:05 AM EDT [facility] ([facility]) Blood Arterial blood specimen / Unknown Arterial Puncture / Unknown 05/01/2025 3:05 AM EDT 05/01/2025 3:21 AM EDT Dg Power MD LAB BLOOD ORDERABLES Final Res ult [facility]) [address] [place] [phone] * Magnesium (05/01/2025 3:05 AM EDT) Magnesium 2.0 1.9 - 2.7 mg/dL 05/01/2025 4:05 AM EDT [facility]) Blood Arterial blood specimen / Unknown Arterial Puncture / Unknown 05/01/2025 3:05 AM EDT 05/01/2025 3:21 AM EDT Dg Power MD LAB BLOOD ORDERABLES Final Res ult [facility]) [address] [place] [address] * (ABNORMAL) CBC auto differential (05/01/2025 3:05 AM EDT) Auto WBC 7.39 4.00 - 10.60 10*3/uL 05/01/2025 3:28 AM EDT [facility]) RBC 2.67(L) 4.20 - 5.70 10*6/uL 05/01/2025 3:28 AM EDT [facility]) Hemoglobin 8.6(L) 13.0 - 17.0 g/dL 05/01/2025 3:28 AM EDT [facility]) Hematocrit 25.1(L) 39.0 - 50.0 % 05/01/2025 3:28 AM EDT [facility] ([facility]) MCV 94.0 82.0 - 98.0 fL 05/01/2025 3:28 AM EDT [facility] ([facility]) MCH 32.2 27.0 - 33.0 pg 05/01/2025 3:28 AM EDT [facility] ([facility]) MCHC 34.3 32.0 - 35.0 g/dL 05/01/2025 3:28 AM EDT [facility] ([facility]) RDW 14.7 11.5 - 15.0 % 05/01/2025 3:28 AM EDT [facility] ([facility]) Neutrophils % 79.9(H) 40.0 - 72.0 % 05/01/2025 3:28 AM EDT [facility] ([facility]) Lymphocytes % 6.8(L) 20.0 - 45.0 % 05/01/2025 3:28 AM EDT [facility] ([facility]) Monocytes % 12.3(H) 5.0 - 12.0 % 05/01/2025 3:28 AM EDT [facility] ([facility]) Eosinophils % 0.0 0.0 - 6.0 % 05/01/2025 3:28 AM EDT [facility] ([facility]) Basophils % 0.1 0.0 - 1.0 % 05/01/2025 3:28 AM EDT [facility] ([facility]) Neutrophils Absolute 5.90 1.60 - 7.60 10*3/uL 05/01/2025 3:28 AM EDT [facility] ([facility]) Lymphocytes Absolute 0.50(L) 1.20 - 4.00 10*3/uL 05/01/2025 3:28 AM EDT [facility] ([facility]) Monocytes Absolute 0.91 0.10 - 1.00 10*3/uL 05/01/2025 3:28 AM EDT [facility] ([facility]) Eosinophils Absolute 0.00 0.00 - 0.50 10*3/uL 05/01/2025 3:28 AM EDT [facility] ([facility]) Basophils Absolute 0.01 0.00 - 0.20 10*3/uL 05/01/2025 3:28 AM EDT [facility] ([facility]) Platelets 159 150 - 400 10*3/uL 05/01/2025 3:28 AM EDT [facility] ([facility]) nRBC % 1.1(H) 0 % 05/01/2025 3:28 AM EDT [facility] ([facility]) Immature Granulocytes % 0.9 0.0 - 1.0 % 05/01/2025 3:28 AM EDT [facility] ([facility]) Immature Granulocytes Absolute 0.07 0.00 - 0.20 10*3/uL 05/01/2025 3:28 AM EDT [facility] ([facility]) Blood Venous blood specimen / Unknown Arterial Line / Unknown 05/01/2025 3:05 AM EDT 05/01/2025 3:21 AM EDT us Pepe Raj KLEIN LAB BLOOD ORDERABLES Final Resu lt [facility] ([facility]) [address] [place] [address] * (ABNORMAL) Comprehensive metabolic panel (05/01/2025 3:05 AM EDT) Sodium 135(L) 136 - 145 mmol/L 05/01/2025 3:46 AM EDT [facility] ([facility]) Potassium 3.7 3.5 - 5.1 mmol/L 05/01/2025 3:46 AM EDT [facility] ([facility]) Chloride 94(L) 98 - 107 mmol/L 05/01/2025 3:46 AM EDT [facility] ([facility]) CO2 35(H) 21 - 31 mmol/L 05/01/2025 3:46 AM EDT [facility] ([facility]) Anion Gap 10 7 - 20 mmol/L 05/01/2025 3:46 AM EDT [facility] ([facility]) BUN 12 7 - 25 mg/dL 05/01/2025 3:46 AM EDT [facility] ([facility]) Creatinine 1.04 0.70 - 1.30 mg/dL 05/01/2025 3:46 AM [facility] ([facility]) BUN/Creatinine Ratio 11.5 04/18 3:46 AM [facility] ([facility]) Glucose 115(H) 70 - 100 mg/dL 05/01/2025 3:46 AM [facility] ([facility]) Calcium 7.9(L) 8.6 - 10.3 mg/dL 05/01/2025 3:46 AM [facility] ([facility]) AST 86(H) 13 - 39 U/L 05/01/2025 3:46 AM [facility] ([facility]) ALT (SGPT) 182(H) 7 - 52 U/L 05/01/2025 3:46 AM [facility] ([facility]) Alkaline Phosphatase 65 34 - 104 U/L 05/01/2025 3:46 AM [facility] ([facility]) Total Protein 5.9(L) 6.0 - 8.3 g/dL 05/01/2025 3:46 AM [facility] ([facility]) Albumin 3.4(L) 3.5 - 5.7 g/dL 05/01/2025 3:46 AM [facility] ([facility]) Total Bilirubin 0.9 0.3 - 1.0 mg/dL 05/01/2025 3:46 AM [facility] ([facility]) eGFR 77.7 >60.0 mL/min/1. 73m*2 05/01/2025 3:46 AM [facility] ([facility]) Comment:[facility] s estimated glomerular filtration rate (eGFR) [...] ORDERABLES Final Resu lt Performing Organization Address City/[facility]/ZIP Co de Phone Number [facility]) [address] [place], [place] [phone] * Phosphorus (05/01/2025 12:47 AM EDT) Phosphorus 2.7 2.5 - 5.0 mg/dL 05/01/2025 1:22 AM EDT [facility] ([facility]) Blood Arterial blood specimen / Unknown Arterial Puncture / Unknown 05/01/2025 12:47 AM EDT 05/01/2025 12:59 AM EDT us Pepe Anthony MD LAB BLOOD ORDERABLES Final Resu lt Performing Organization Address [facility]/ZIP Co de Phone Number [facility]) [address] [place] [address] * Magnesium (05/01/2025 12:47 AM EDT) Magnesium 2.1 1.9 - 2.7 mg/dL 05/01/2025 1:22 AM EDT [facility]) Blood Arterial blood specimen / Unknown Arterial Puncture / Unknown 05/01/2025 12:47 AM EDT 05/01/2025 12:59 AM EDT us Pepe Anthony MD LAB BLOOD ORDERABLES Final Resu lt Performing Organization Address City/[facility]/ZIP Co de Phone Number [facility]) [address] [place] [address] * (ABNORMAL) Basic metabolic panel (05/01/2025 12:47 AM EDT) Sodium 136 136 - 145 mmol/L 05/01/2025 1:22 AM EDT [facility]) Potassium 3.8 3.5 - 5.1 mmol/L 05/01/2025 1:22 AM EDT [facility] ([facility]) Chloride 94(L) 98 - 107 mmol/L 05/01/2025 1:22 AM T [facility] ([facility]) CO2 35(H) 21 - 31 mmol/L 05/01/2025 1:22 AM EDT [facility] ([facility]) BUN 13 7 - 25 mg/dL 05/01/2025 1:22 AM T [facility] ([facility]) Creatinine 1.21 0.70 - 1.30 mg/dL 05/01/2025 1:22 AM T [facility] ([facility]) Glucose 113(H) 70 - 100 mg/dL 05/01/2025 1:22 AM T [facility] ([facility]) Calcium 7.8(L) 8.6 - 10.3 mg/dL 05/01/2025 1:22 AM T [facility] ([facility]) Anion Gap 11 7 - 20 mmol/L 05/01/2025 1:22 AM T [facility] ([facility]) eGFR 64.8 >60.0 mL/min/1. 73m*2 05/01/2025 1:22 AM T [facility] ([facility]) Comment:[facility] s estimated glomerular filtration rate (eGFR) [...] any one group of individuals. BUN/Creatinine Ratio 10.7 04/18 1:22 AM T [facility] ([facility]) Blood Arterial blood specimen / Unknown Arterial Puncture / Unknown 05/01/2025 12:47 AM EDT 05/01/2025 12:59 AM EDT us Pepe Anthony MD LAB BLOOD ORDERABLES Final Resu lt Performing Organization Address City/[facility]/ZIP Co de Phone Number [facility] ([facility]) [address] [place] [address] * (ABNORMAL) Phosphorus (04/30/2025 8:12 PM EDT) Phosphorus 2.2(L) 2.5 - 5.0 mg/dL 04/30/2025 8:46 PM EDT [facility] ([facility]) Blood Arterial blood specimen / Unknown Arterial Puncture / Unknown 04/30/2025 8:12 PM EDT 04/30/2025 8:18 PM EDT us Pepe Anthony MD LAB BLOOD ORDERABLES Final Resu lt Performing Organization Address City/[facility]/ZIP Co de Phone Number [facility] ([facility]) [address] [place], [place] [phone] * (ABNORMAL) Magnesium (04/30/2025 8:12 PM EDT) Magnesium 1.8(L) 1.9 - 2.7 mg/dL 04/30/2025 8:46 PM EDT [facility] ([facility]) Blood Arterial blood specimen / Unknown Arterial Puncture / Unknown 04/30/2025 8:12 PM EDT 04/30/2025 8:18 PM EDT us Pepe Anthony MD LAB BLOOD ORDERABLES Final Resu lt [facility] ([facility]) [address] [place], [place] [phone] * (ABNORMAL) Basic metabolic panel (04/30/2025 8:12 PM EDT) Sodium 135(L) 136 - 145 mmol/L 04/30/2025 8:46 PM EDT [facility] ([facility]) Potassium 3.5 3.5 - 5.1 mmol/L 04/30/2025 8:46 PM EDT [facility] ([facility]) Chloride 94(L) 98 - 107 mmol/L 04/30/2025 8:46 PM EDT [facility] ([facility]) CO2 34(H) 21 - 31 mmol/L 04/30/2025 8:46 PM EDT [facility] ([facility]) BUN 14 7 - 25 mg/dL 04/30/2025 8:46 PM EDT [facility] ([facility]) Creatinine 1.19 0.70 - 1.30 mg/dL 04/30/2025 8:46 PM EDT [facility] ([facility]) Glucose 135(H) 70 - 100 mg/dL 04/30/2025 8:46 PM EDT [facility] ([facility]) Calcium 7.9(L) 8.6 - 10.3 mg/dL 04/30/2025 8:46 PM EDT [facility] ([facility]) Anion Gap 11 7 - 20 mmol/L 04/30/2025 8:46 PM EDT [facility] ([facility]) eGFR 66.1 >60.0 mL/min/1. 73m*2 04/30/2025 8:46 PM T [facility] ([facility]) Comment:[facility] s estimated glomerular filtration rate (eGFR) [...] individuals. BUN/Creatinine Ratio 11.8 04/18 8:46 PM EDT [facility] ([facility]) Blood Arterial blood specimen / Unknown Arterial Puncture / Unknown 04/30/2025 8:12 PM EDT 04/30/2025 8:18 PM EDT us Pepe Raj KLEIN LAB BLOOD ORDERABLES Final Resu lt [facility] ([facility]) [address] [place] [address] * (ABNORMAL) Phosphorus (04/30/2025 3:22 PM EDT) [facility] Phosphorus 2.3(L) 2.5 - 5.0 mg/dL 04/30/2025 4:00 PM EDT [facility] ([facility]) Blood Blood sample taken from central line / Unknown Arterial Puncture / Unknown 04/30/2025 3:22 PM EDT 04/30/2025 3:33 PM EDT us Pepe Anthony MD LAB BLOOD ORDERABLES Final Resu lt [facility] ([facility]) [address] [place] [phone] * Magnesium (04/30/2025 3:22 PM EDT) [facility] Magnesium 1.9 1.9 - 2.7 mg/dL 04/30/2025 4:00 PM EDT [facility] ([facility]) Blood Blood sample taken from central line / Unknown Arterial Puncture / Unknown 04/30/2025 3:22 PM EDT 04/30/2025 3:33 PM EDT us Pepe Anthony MD LAB BLOOD ORDERABLES Final Resu lt [facility] ([facility]) [address] [place] [address] * (ABNORMAL) Basic metabolic panel (04/30/2025 3:22 PM EDT) [facility] Sodium 134(L) 136 - 145 mmol/L 04/30/2025 4:00 PM EDT [facility] ([facility]) Potassium 3.7 3.5 - 5.1 mmol/L 04/30/2025 4:00 PM EDT [facility] ([facility]) Chloride 94(L) 98 - 107 mmol/L 04/30/2025 4:00 PM EDT [facility] ([facility]) CO2 34(H) 21 - 31 mmol/L 04/30/2025 4:00 PM EDT [facility] ([facility]) BUN 15 7 - 25 mg/dL 04/30/2025 4:00 PM EDT [facility] ([facility]) Creatinine 1.22 0.70 - 1.30 mg/dL 04/30/2025 4:00 PM EDT [facility] ([facility]) Glucose 141(H) 70 - 100 mg/dL 04/30/2025 4:00 PM EDT [facility] ([facility]) Calcium 7.7(L) 8.6 - 10.3 mg/dL 04/30/2025 4:00 PM EDT [facility] ([facility]) Anion Gap 10 7 - 20 mmol/L 04/30/2025 4:00 PM T [facility] ([facility]) eGFR 64.2 >60.0 mL/min/1. 73m*2 04/30/2025 4:00 PM T [facility] ([facility]) Comment:[facility] s estimated glomerular filtration rate (eGFR) [...] individuals. BUN/Creatinine Ratio 12.3 04/18 4:00 PM EDT [facility] ([facility]) Blood Blood sample taken from central line / Unknown Arterial Puncture / Unknown 04/30/2025 3:22 PM EDT 04/30/2025 3:33 PM EDT us Pepe Anthony MD LAB BLOOD ORDERABLES Final Resu lt [facility]) [address] [place] [address] * (ABNORMAL) Phosphorus (04/30/2025 11:13 AM EDT) Phosphorus 1.7(L) 2.5 - 5.0 mg/dL 04/30/2025 12:11 PM EDT [facility] ([facility]) Blood Arterial blood specimen / Unknown Arterial Puncture / Unknown 04/30/2025 11:13 AM EDT 04/30/2025 11:32 AM EDT us Pepe Anthony MD LAB BLOOD ORDERABLES Final Resu lt Performing Organization Address City/[facility]/ZIP Co de Phone Number [facility] ([facility]) [address] [place] [address] * Magnesium (04/30/2025 11:13 AM EDT) Pathologist [facility] Magnesium 1.9 1.9 - 2.7 mg/dL 04/30/2025 12:11 PM EDT [facility] ([facility]) Blood Arterial blood specimen / Unknown Arterial Puncture / Unknown 04/30/2025 11:13 AM EDT 04/30/2025 11:32 AM EDT us Pepe Anthony MD LAB BLOOD ORDERABLES Final Resu lt Performing Organization Address City/[facility]/ZIP Co de Phone Number [facility] ([facility]) [address] [place] [address] * (ABNORMAL) Basic metabolic panel (04/30/2025 11:13 AM EDT) Sodium 134(L) 136 - 145 mmol/L 04/30/2025 12:11 PM EDT [facility] ([facility]) Potassium 3.8 3.5 - 5.1 mmol/L 04/30/2025 12:11 PM EDT [facility] ([facility]) Chloride 95(L) 98 - 107 mmol/L 04/30/2025 12:11 PM EDT [facility] ([facility]) CO2 35(H) 21 - 31 mmol/L 04/30/2025 12:11 PM EDT [facility] ([facility]) BUN 16 7 - 25 mg/dL 04/30/2025 12:11 PM EDT [facility] ([facility]) Creatinine 1.27 0.70 - 1.30 mg/dL 04/30/2025 12:11 PM EDT [facility] ([facility]) Glucose 133(H) 70 - 100 mg/dL 04/30/2025 12:11 PM EDT [facility] ([facility]) Calcium 7.6(L) 8.6 - 10.3 mg/dL 04/30/2025 12:11 PM EDT [facility] ([facility]) Anion Gap 8 7 - 20 mmol/L 04/30/2025 12:11 PM EDT [facility] ([facility]) eGFR 61.2 >60.0 mL/min/1. 73m*2 04/30/2025 12:11 PM EDT [facility] ([facility]) Comment:[facility] s estimated glomerular filtration rate (eGFR) [...] individuals. BUN/Creatinine Ratio 12.6 04/18 12:11 PM EDT [facility] ([facility]) Blood Arterial blood specimen / Unknown Arterial Puncture / Unknown 04/30/2025 11:13 AM EDT 04/30/2025 11:32 AM EDT us Pepe Anthony MD LAB BLOOD ORDERABLES Final Resu lt [facility] ([facility]) [address] [place] [address] * LIMITED ECHOCARDIOGRAM (TTE) W/ LTD DOPPLER AND COLOR FLOW (04/30/2025 8:35 AM EDT) Anatomical Region Laterality Modality Other 04/30/2025 7:02 AM EDT Narrative 04/30/2025 11:22 AM EDT 1 [facility] Heart Station [address] [place] [address] [phone] (fax) Echocardiogram-[facility] Name: KRISTY DOHERTY Study Date: 04/30/2025 07:02 AM B/P: 121 mmHg/100 mmHg HR: 87 bpm Date of : 1955 Location: [facility] Height: 68 in. Age: 69 year(s) Patient [...] with the fellow Procedure Staff Reading Group: [facility] Referring Physician: RUDY KING [employer] Supervisor: June Brumfield RDCS, RVT, RN, BSN Ordering Physician: Wil Sotomayor MD [employer] Scores -1 - hyperkinesia, 0 - not evaluated, 1 - normal, 2 - hypokinesia, 3 - akinesia, 4 - dyskinesia Procedure Note Hay William MD - 04/30/2025 1 1 [facility] Heart [facility] [address] [place] [address] [phone] (fax) Echocardiogram-[facility] Name: KRISTY DOHERTY Study Date: 04/30/2025 07:02 AM B/P: 121 mmHg/100 mmHg HR: 87 bpm Date of : 1955 Location: [facility] Height: 68 in. Age: 69 year(s) Patient [...] with the fellow Procedure Staff Reading Group: [facility] Referring Physician: RUDY KING [employer] Supervisor: June Brumfield RDCS, RVT, RN, BSN Ordering Physician: Wil Sotomayor MD [employer] Scores -1 - hyperkinesia, 0 - not evaluated, 1 - normal, 2 - hypokinesia, 3 - akinesia, 4 - dyskinesia us Wil Sotomayor MD CV ECHO PROCEDURES Final Result * (ABNORMAL) Phosphorus (04/30/2025 7:48 AM EDT) Phosphorus 1.8(L) 2.5 - 5.0 mg/dL 04/30/2025 10:07 AM EDT [facility] ([facility]) Blood Venous blood specimen / Unknown Arterial Puncture / Unknown 04/30/2025 7:48 AM EDT 04/30/2025 8:12 AM EDT Pepe Anthony MD LAB BLOOD ORDERABLES Final Resu lt Performing Organization Address City/[facility]/ZIP Co de Phone Number [facility]) [address] [place] [id number] * Magnesium (04/30/2025 7:48 AM EDT) Magnesium 2.0 1.9 - 2.7 mg/dL 04/30/2025 10:07 AM EDT [facility]) Blood Venous blood specimen / Unknown Arterial Puncture / Unknown 04/30/2025 7:48 AM EDT 04/30/2025 8:12 AM EDT us Pepe Anthony MD LAB BLOOD ORDERABLES Final Resu lt Performing Organization Address City/[facility]/ZIP Co de Phone Number [facility]) [address] [place], [place] [id number] * (ABNORMAL) Basic metabolic panel (04/30/2025 7:48 AM EDT) Sodium 135(L) 136 - 145 mmol/L 04/30/2025 10:07 AM EDT [facility]) Potassium 3.7 3.5 - 5.1 mmol/L 04/30/2025 10:07 AM EDT [facility] ([facility]) Chloride 95(L) 98 - 107 mmol/L 04/30/2025 10:07 AM EDT [facility]) CO2 35(H) 21 - 31 mmol/L 04/30/2025 10:07 AM EDT [facility] ([facility]) BUN 16 7 - 25 mg/dL 04/30/2025 10:07 AM EDT [facility] ([facility]) Creatinine 1.29 0.70 - 1.30 mg/dL 04/30/2025 10:07 AM EDT [facility] ([facility]) Glucose 95 70 - 100 mg/dL 04/30/2025 10:07 AM EDT [facility] ([facility]) Calcium 8.0(L) 8.6 - 10.3 mg/dL 04/30/2025 10:07 AM EDT [facility] ([facility]) Anion Gap 9 7 - 20 mmol/L 04/30/2025 10:07 AM EDT [facility] ([facility]) eGFR 60.0(L) >60.0 mL/min/1. 73m*2 04/30/2025 10:07 AM EDT [facility] ([facility]) Comment:[facility] s estimated glomerular filtration rate (eGFR) [...] individuals. BUN/Creatinine Ratio 12.4 04/18 10:07 AM EDT [facility] ([facility]) Blood Venous blood specimen / Unknown Arterial Puncture / Unknown 04/30/2025 7:48 AM EDT 04/30/2025 8:12 AM EDT us Pepe Anthony MD LAB BLOOD ORDERABLES Final Resu lt [facility] ([facility]) [address] [place] [address] * (ABNORMAL) CBC auto differential (04/30/2025 4:10 AM EDT) Auto WBC 8.77 4.00 - 10.60 10*3/uL 04/30/2025 4:33 AM EDT [facility] ([facility]) RBC 2.58(L) 4.20 - 5.70 10*6/uL 04/30/2025 4:33 AM EDT [facility] ([facility]) Hemoglobin 8.2(L) 13.0 - 17.0 g/dL 04/30/2025 4:33 AM EDT [facility] ([facility]) Hematocrit 23.9(L) 39.0 - 50.0 % 04/30/2025 4:33 AM EDT [facility] ([facility]) MCV 92.6 82.0 - 98.0 fL 04/30/2025 4:33 AM EDT [facility] ([facility]) MCH 31.8 27.0 - 33.0 pg 04/30/2025 4:33 AM EDT [facility] ([facility]) MCHC 34.3 32.0 - 35.0 g/dL 04/30/2025 4:33 AM EDT [facility] ([facility]) RDW 14.7 11.5 - 15.0 % 04/30/2025 4:33 AM EDT [facility] ([facility]) Neutrophils % 81.5(H) 40.0 - 72.0 % 04/30/2025 4:33 AM EDT [facility] ([facility]) Lymphocytes % 7.8(L) 20.0 - 45.0 % 04/30/2025 4:33 AM EDT [facility] ([facility]) Monocytes % 9.9 5.0 - 12.0 % 04/30/2025 4:33 AM EDT [facility] ([facility]) Eosinophils % 0.1 0.0 - 6.0 % 04/30/2025 4:33 AM EDT [facility] ([facility]) Basophils % 0.1 0.0 - 1.0 % 04/30/2025 4:33 AM EDT [facility] ([facility]) Neutrophils Absolute 7.15 1.60 - 7.60 10*3/uL 04/30/2025 4:33 AM EDT [facility] ([facility]) Lymphocytes Absolute 0.68(L) 1.20 - 4.00 10*3/uL 04/30/2025 4:33 AM EDT [facility] ([facility]) Monocytes Absolute 0.87 0.10 - 1.00 10*3/uL 04/30/2025 4:33 AM EDT [facility] ([facility]) Eosinophils Absolute 0.01 0.00 - 0.50 10*3/uL 04/30/2025 4:33 AM EDT [facility] ([facility]) Basophils Absolute 0.01 0.00 - 0.20 10*3/uL 04/30/2025 4:33 AM EDT [facility] ([facility]) Platelets 143(L) 150 - 400 10*3/uL 04/30/2025 4:33 AM EDT [facility] ([facility]) nRBC % 1.1(H) 0 % 04/30/2025 4:33 AM EDT [facility]) Immature Granulocytes % 0.6 0.0 - 1.0 % 04/30/2025 4:[address] [facility] ([facility]) Immature Granulocytes Absolute 0.05 0.00 - 0.20 10*3/uL 04/30/2025 4:[address] [facility] ([facility]) Blood Venous blood specimen / Unknown Arterial Line / Unknown 04/30/2025 4:10 AM EDT 04/30/2025 4:23 AM EDT us Pepe Anthony MD LAB BLOOD ORDERABLES Final Resu lt [facility] ([facility]) [address] [place] [address] * (ABNORMAL) Phosphorus (04/30/2025 4:10 AM EDT) Phosphorus 1.8(L) 2.5 - 5.0 mg/dL 04/30/2025 4:51 AM EDT [facility]) Blood Arterial blood specimen / Unknown Arterial Puncture / Unknown 04/30/2025 4:10 AM EDT 04/30/2025 4:23 AM EDT us Pepe Anthony MD LAB BLOOD ORDERABLES Final Resu lt Performing Organization Address City/[facility]/ZIP Co de Phone Number [facility] ([facility]) [address] [place] [address] * Magnesium (04/30/2025 4:10 AM EDT) Magnesium 2.0 1.9 - 2.7 mg/dL 04/30/2025 4:51 AM EDT [facility] ([facility]) Blood Arterial blood specimen / Unknown Arterial Puncture / Unknown 04/30/2025 4:10 AM EDT 04/30/2025 4:23 AM EDT us Pepe Anthony MD LAB BLOOD ORDERABLES Final Resu lt Performing Organization Address [facility] de Phone Number [facility] ([facility]) [address] [place] [address] * (ABNORMAL) Comprehensive metabolic panel (04/30/2025 4:10 AM EDT) Sodium 134(L) 136 - 145 mmol/L 04/30/2025 4:51 AM EDT [facility] ([facility]) Potassium 3.5 3.5 - 5.1 mmol/L 04/30/2025 4:51 AM EDT [facility] ([facility]) Chloride 94(L) 98 - 107 mmol/L 04/30/2025 4:51 AM EDT [facility] ([facility]) CO2 35(H) 21 - 31 mmol/L 04/30/2025 4:51 AM EDT [facility] ([facility]) Anion Gap 9 7 - 20 mmol/L 04/30/2025 4:51 AM EDT [facility] ([facility]) BUN 16 7 - 25 mg/dL 04/30/2025 4:51 AM EDT [facility] ([facility]) Creatinine 1.21 0.70 - 1.30 mg/dL 04/30/2025 4:51 AM [facility] ([facility]) BUN/Creatinine Ratio 13.2 04/18 4:51 AM [facility] ([facility]) Glucose 100 70 - 100 mg/dL 04/30/2025 4:51 AM [facility] ([facility]) Calcium 8.0(L) 8.6 - 10.3 mg/dL 04/30/2025 4:51 AM [facility] ([facility]) AST 119(H) 13 - 39 U/L 04/30/2025 4:51 AM [facility] ([facility]) ALT (SGPT) 211(H) 7 - 52 U/L 04/30/2025 4:51 AM [facility] ([facility]) Alkaline Phosphatase 54 34 - 104 U/L 04/30/2025 4:51 AM [facility] ([facility]) Total Protein 5.6(L) 6.0 - 8.3 g/dL 04/30/2025 4:51 AM [facility] ([facility]) Albumin 3.2(L) 3.5 - 5.7 g/dL 04/30/2025 4:51 AM [facility] ([facility]) Total Bilirubin 0.8 0.3 - 1.0 mg/dL 04/30/2025 4:51 AM [facility] ([facility]) eGFR 64.8 >60.0 mL/min/1. 73m*2 04/30/2025 4:51 AM [facility] ([facility]) Comment:[facility] s estimated glomerular filtration rate (eGFR) [...] MD LAB BLOOD ORDERABLES Final Resu lt [facility]) [address] [place], [place] [id number] * (ABNORMAL) Phosphorus (04/30/2025 12:09 AM EDT) Phosphorus 2.1(L) 2.5 - 5.0 mg/dL 04/30/2025 12:51 AM EDT [facility] ([facility]) Blood Arterial blood specimen / Unknown Arterial Puncture / Unknown 04/30/2025 12:09 AM EDT 04/30/2025 12:26 AM EDT us Pepe Anthony MD LAB BLOOD ORDERABLES Final Resu lt Performing Organization Address City/[facility]/ZIP Co de Phone Number [facility] [address] [place] [address] * Magnesium (04/30/2025 12:09 AM EDT) Magnesium 2.0 1.9 - 2.7 mg/dL 04/30/2025 12:51 AM EDT [facility]) Blood Arterial blood specimen / Unknown Arterial Puncture / Unknown 04/30/2025 12:09 AM EDT 04/30/2025 12:26 AM EDT us Pepe Anthony MD LAB BLOOD ORDERABLES Final Resu lt [facility]) [address] [place], [place] [id number] * (ABNORMAL) Basic metabolic panel (04/30/2025 12:09 AM EDT) Sodium 134(L) 136 - 145 mmol/L 04/30/2025 12:51 AM EDT [facility]) Potassium 3.6 3.5 - 5.1 mmol/L 04/30/2025 12:51 AM EDT [facility] ([facility]) Chloride 95(L) 98 - 107 mmol/L 04/30/2025 12:51 AM T [facility] ([facility]) CO2 33(H) 21 - 31 mmol/L 04/30/2025 12:51 AM EDT [facility] ([facility]) BUN 18 7 - 25 mg/dL 04/30/2025 12:51 AM T [facility] ([facility]) Creatinine 1.32(H) 0.70 - 1.30 mg/dL 04/30/2025 12:51 AM T [facility] ([facility]) Glucose 103(H) 70 - 100 mg/dL 04/30/2025 12:51 AM T [facility] ([facility]) Calcium 7.8(L) 8.6 - 10.3 mg/dL 04/30/2025 12:51 AM [facility] ([facility]) Anion Gap 10 7 - 20 mmol/L 04/30/2025 12:51 AM [facility] ([facility]) eGFR 58.4(L) >60.0 mL/min/1. 73m*2 04/30/2025 12:51 AM [facility] ([facility]) Comment:[facility] s estimated glomerular filtration rate (eGFR) [...] individuals. BUN/Creatinine Ratio 13.6 04/18 12:51 AM T [facility] ([facility]) Blood Arterial blood specimen / Unknown Arterial Puncture / Unknown 04/30/2025 12:09 AM EDT 04/30/2025 12:26 AM EDT us Pepe Anthony MD LAB BLOOD ORDERABLES Final Resu lt Performing Organization Address [facility]/ZIP Co de Phone Number [facility] ([facility]) [address] [place], [place] [id number] * Phosphorus (04/29/2025 8:02 PM EDT) Phosphorus 2.8 2.5 - 5.0 mg/dL 04/29/2025 8:29 PM EDT [facility] ([facility]) Blood Arterial blood specimen / Unknown Arterial Puncture / Unknown 04/29/2025 8:02 PM EDT 04/29/2025 8:05 PM EDT us Pepe Anthony MD LAB BLOOD ORDERABLES Final Resu lt Performing Organization Address [facility] Co de Phone Number [facility] ([facility]) [address] [place] [address] * Magnesium (04/29/2025 8:02 PM EDT) Pathologist [facility] Magnesium 1.9 1.9 - 2.7 mg/dL 04/29/2025 8:29 PM EDT [facility] ([facility]) Blood Arterial blood specimen / Unknown Arterial Puncture / Unknown 04/29/2025 8:02 PM EDT 04/29/2025 8:05 PM EDT us Pepe Anthony MD LAB BLOOD ORDERABLES Final Resu lt Performing Organization Address [facility]/ZIP Co de Phone Number [facility] ([facility]) [address] [place] [address] * (ABNORMAL) Basic metabolic panel (04/29/2025 8:02 PM EDT) Sodium 134(L) 136 - 145 mmol/L 04/29/2025 8:29 PM EDT [facility] ([facility]) Potassium 3.6 3.5 - 5.1 mmol/L 04/29/2025 8:29 PM EDT [facility] ([facility]) Chloride 95(L) 98 - 107 mmol/L 04/29/2025 8:29 PM EDT [facility] ([facility]) CO2 33(H) 21 - 31 mmol/L 04/29/2025 8:29 PM EDT [facility] ([facility]) BUN 20 7 - 25 mg/dL 04/29/2025 8:29 PM EDT [facility] ([facility]) Creatinine 1.46(H) 0.70 - 1.30 mg/dL 04/29/2025 8:29 PM EDT [facility] ([facility]) Glucose 114(H) 70 - 100 mg/dL 04/29/2025 8:29 PM EDT [facility] ([facility]) Calcium 7.7(L) 8.6 - 10.3 mg/dL 04/29/2025 8:29 PM EDT [facility] ([facility]) Anion Gap 10 7 - 20 mmol/L 04/29/2025 8:29 PM EDT [facility] ([facility]) eGFR 51.7(L) >60.0 mL/min/1. 73m*2 04/29/2025 8:29 PM EDT [facility] ([facility]) Comment:[facility] s estimated glomerular filtration rate (eGFR) [...] individuals. BUN/Creatinine Ratio 13.7 04/18 8:29 PM EDT [facility] ([facility]) Blood Arterial blood specimen / Unknown Arterial Puncture / Unknown 04/29/2025 8:02 PM EDT 04/29/2025 8:05 PM EDT us Pepe Anthony MD LAB BLOOD ORDERABLES Final Resu lt [facility] ([facility]) [address] [place] [address] * (ABNORMAL) Blood Gas, Venous (04/29/2025 3:38 PM EDT) pH, Ed 7.43(H) 7.31 - 7.41 04/29/2025 3:56 PM EDT [facility] pCO2, Ed 48 40 - 50 mmHg 04/29/2025 3:56 PM EDT [facility] pO2, Ed 35 35 - 45 mmHg 04/29/2025 3:56 PM EDT [facility] O2 Sat, Ed 56.1(L) 65.0 - 75.0 % 04/29/2025 3:56 PM EDT [facility] HCO3, Venous 31.9 mmol/L 04/29/2025 3:56 PM EDT [facility] Oxyhemoglobin, Venous 55.6 % 04/29/2025 3:56 PM EDT [facility] pH Venous Temp Adjusted 7.43(H) 7.31 - 7.41 04/29/2025 3:56 PM EDT [facility] pCO2 Venous Temp Adjusted 48 40 - 50 mmHg 04/29/2025 3:56 PM EDT [facility] pO2 Venous Temp Adjusted 35 35 - 45 mmHg 04/29/2025 3:56 PM EDT [facility] Temperature 37.0 C 04/29/2025 3:56 PM EDT [facility] Blood Venous blood specimen / Unknown Existing Catheter / Unknown 04/29/2025 3:38 PM EDT 04/29/2025 3:51 PM EDT us Pepe Anthony MD LAB BLOOD ORDERABLES Final Resu lt [facility] [address] [place] [address], * Phosphorus (04/29/2025 3:38 PM EDT) Phosphorus 3.0 2.5 - 5.0 mg/dL 04/29/2025 4:05 PM EDT [facility] ([facility]) Blood Venous blood specimen / Unknown Existing Catheter / Unknown 04/29/2025 3:38 PM EDT 04/29/2025 3:43 PM EDT us Pepe Anthony MD LAB BLOOD ORDERABLES Final Resu lt Performing Organization Address City/[facility]/ZIP Co de Phone Number [facility] ([facility]) [address] [place] [address] * Magnesium (04/29/2025 3:38 PM EDT) Pathologist [facility] Magnesium 2.0 1.9 - 2.7 mg/dL 04/29/2025 4:05 PM EDT [facility] ([facility]) Blood Venous blood specimen / Unknown Existing Catheter / Unknown 04/29/2025 3:38 PM EDT 04/29/2025 3:43 PM EDT us Pepe Anthony MD LAB BLOOD ORDERABLES Final Resu lt Performing Organization Address City/[facility]/ZIP Co de Phone Number [facility] ([facility]) [address] [place] [address] * (ABNORMAL) Basic metabolic panel (04/29/2025 3:38 PM EDT) Sodium 133(L) 136 - 145 mmol/L 04/29/2025 4:05 PM EDT [facility] ([facility]) Potassium 3.6 3.5 - 5.1 mmol/L 04/29/2025 4:05 PM EDT [facility] ([facility]) Chloride 93(L) 98 - 107 mmol/L 04/29/2025 4:05 PM EDT [facility] ([facility]) CO2 32(H) 21 - 31 mmol/L 04/29/2025 4:05 PM EDT [facility] ([facility]) BUN 21 7 - 25 mg/dL 04/29/2025 4:05 PM EDT [facility] ([facility]) Creatinine 1.47(H) 0.70 - 1.30 mg/dL 04/29/2025 4:05 PM EDT [facility] ([facility]) Glucose 113(H) 70 - 100 mg/dL 04/29/2025 4:05 PM EDT [facility] ([facility]) Calcium 8.0(L) 8.6 - 10.3 mg/dL 04/29/2025 4:05 PM EDT [facility] ([facility]) Anion Gap 12 7 - 20 mmol/L 04/29/2025 4:05 PM EDT [facility] ([facility]) eGFR 51.3(L) >60.0 mL/min/1. 73m*2 04/29/2025 4:05 PM EDT [facility] ([facility]) Comment:[facility] s estimated glomerular filtration rate (eGFR) [...] BUN/Creatinine Ratio 14.3 04/18 4:05 PM EDT [facility] ([facility]) Blood Venous blood specimen / Unknown Existing Catheter / Unknown 04/29/2025 3:38 PM EDT 04/29/2025 3:43 PM EDT us Pepe Raj KLEIN LAB BLOOD ORDERABLES Final Resu lt [facility] ([facility]) [address] [place] [address] * Phosphorus (04/29/2025 1:02 PM EDT) Phosphorus 2.5 2.5 - 5.0 mg/dL 04/29/2025 1:31 PM EDT [facility] ([facility]) Blood Venous blood specimen / Unknown Existing Catheter / Unknown 04/29/2025 1:02 PM EDT 04/29/2025 1:09 PM EDT us Pepe Anthony MD LAB BLOOD ORDERABLES Final Resu lt Performing Organization Address City/[facility]/ZIP Co de Phone Number [facility] ([facility]) [address] [place], [place] [id number] * Magnesium (04/29/2025 1:02 PM EDT) Magnesium 2.1 1.9 - 2.7 mg/dL 04/29/2025 1:31 PM EDT [facility] ([facility]) Blood Venous blood specimen / Unknown Existing Catheter / Unknown 04/29/2025 1:02 PM EDT 04/29/2025 1:09 PM EDT us Pepe Anthony MD LAB BLOOD ORDERABLES Final Resu lt Performing Organization Address [facility]/ZIP Co de Phone Number [facility] ([facility]) [address] [place] [address] * (ABNORMAL) Basic metabolic panel (04/29/2025 1:02 PM EDT) Sodium 133(L) 136 - 145 mmol/L 04/29/2025 1:31 PM EDT [facility] ([facility]) Potassium 3.5 3.5 - 5.1 mmol/L 04/29/2025 1:31 PM EDT [facility] ([facility]) Chloride 94(L) 98 - 107 mmol/L 04/29/2025 1:31 PM EDT [facility] ([facility]) CO2 32(H) 21 - 31 mmol/L 04/29/2025 1:31 PM EDT [facility] ([facility]) BUN 23 7 - 25 mg/dL 04/29/2025 1:31 PM EDT [facility] ([facility]) Creatinine 1.69(H) 0.70 - 1.30 mg/dL 04/29/2025 1:31 PM EDT [facility] ([facility]) Glucose 108(H) 70 - 100 mg/dL 04/29/2025 1:31 PM EDT [facility] ([facility]) Calcium 8.0(L) 8.6 - 10.3 mg/dL 04/29/2025 1:31 PM EDT [facility] ([facility]) Anion Gap 11 7 - 20 mmol/L 04/29/2025 1:31 PM EDT [facility] ([facility]) eGFR 43.4(L) >60.0 mL/min/1. 73m*2 04/29/2025 1:31 PM EDT [facility] ([facility]) Comment:[facility] s estimated glomerular filtration rate (eGFR) [...] BUN/Creatinine Ratio 13.6 04/18 1:31 PM EDT [facility] ([facility]) Blood Venous blood specimen / Unknown Existing Catheter / Unknown 04/29/2025 1:02 PM EDT 04/29/2025 1:09 PM EDT us Pepe Anthony MD LAB BLOOD ORDERABLES Final Resu lt [facility]) [address] [place] [address] * XR chest 1 view (04/29/2025 11:20 [...] * (ABNORMAL) Ferritin (04/29/2025 8:14 AM EDT) [facility] Ferritin 1,265.0(H) 24.0 - 336.0 ng/mL 04/29/2025 11:02 AM EDT [facility] ([facility]) Blood Venous blood specimen / Unknown Existing Catheter / Unknown 04/29/2025 8:14 AM EDT 04/29/2025 8:19 AM EDT us Pepe Anthony MD LAB BLOOD ORDERABLES Final Resu lt [facility] ([facility]) [address] [place] [address] * (ABNORMAL) Iron and TIBC (04/29/2025 8:14 AM EDT) Pathologist [facility] Iron 33(L) 50 - 212 ug/dL 04/29/2025 10:43 AM EDT [facility] ([facility]) TIBC 214(L) 250 - 450 ug/dL 04/29/2025 10:43 AM EDT [facility] ([facility]) Iron Saturation 15(L) 20 - 50 % 10:43 AM EDT [facility] ([facility]) UIBC 181.0 155.0 - 355.0 ug/dL 04/29/2025 10:43 AM EDT [facility] ([facility]) Blood Venous blood specimen / Unknown Existing Catheter / Unknown 04/29/2025 8:14 AM EDT 04/29/2025 8:19 AM EDT us Pepe Anthony MD LAB BLOOD ORDERABLES Final Resu lt [facility] ([facility]) [address] [place] [address], [place] [id number] * (ABNORMAL) Phosphorus (04/29/2025 8:14 AM EDT) Phosphorus 2.4(L) 2.5 - 5.0 mg/dL 04/29/2025 8:43 AM EDT [facility] ([facility]) Blood Venous blood specimen / Unknown Existing Catheter / Unknown 04/29/2025 8:14 AM EDT 04/29/2025 8:19 AM EDT us Pepe Anthony MD LAB BLOOD ORDERABLES Final Resu lt [facility] ([facility]) [address] [place] [address] * Magnesium (04/29/2025 8:14 AM EDT) Magnesium 2.2 1.9 - 2.7 mg/dL 04/29/2025 8:43 AM EDT [facility] ([facility]) Blood Venous blood specimen / Unknown Existing Catheter / Unknown 04/29/2025 8:14 AM EDT 04/29/2025 8:19 AM EDT us Pepe Anthony MD LAB BLOOD ORDERABLES Final Resu lt [facility] ([facility]) [address] [place] [address], [place] [id number] * (ABNORMAL) Basic metabolic panel (04/29/2025 8:14 AM EDT) Sodium 133(L) 136 - 145 mmol/L 04/29/2025 8:43 AM [facility] ([facility]) Potassium 3.6 3.5 - 5.1 mmol/L 04/29/2025 8:43 AM [facility] ([facility]) Chloride 95(L) 98 - 107 mmol/L 04/29/2025 8:43 AM [facility] ([facility]) CO2 32(H) 21 - 31 mmol/L 04/29/2025 8:43 AM [facility] ([facility]) BUN 25 7 - 25 mg/dL 04/29/2025 8:43 AM [facility] ([facility]) Creatinine 1.72(H) 0.70 - 1.30 mg/dL 04/29/2025 8:43 AM [facility] ([facility]) Glucose 108(H) 70 - 100 mg/dL 04/29/2025 8:43 AM [facility] ([facility]) Calcium 7.8(L) 8.6 - 10.3 mg/dL 04/29/2025 8:43 AM [facility] ([facility]) Anion Gap 10 7 - 20 mmol/L 04/29/2025 8:43 AM [facility] ([facility]) eGFR 42.5(L) >60.0 mL/min/1. 73m*2 04/29/2025 8:43 AM [facility] ([facility]) Comment:[facility] s estimated glomerular filtration rate (eGFR) [...] individuals. BUN/Creatinine Ratio 14.5 04/18 8:43 AM [facility] ([facility]) Blood Venous blood specimen / Unknown Existing Catheter / Unknown 04/29/2025 8:14 AM EDT 04/29/2025 8:19 AM EDT us Pepe Raj KLEIN LAB BLOOD ORDERABLES Final Resu lt [facility] ([facility]) [address] [place] [address] * (ABNORMAL) CBC auto differential (04/29/2025 3:04 AM EDT) Auto WBC 9.76 4.00 - 10.60 10*3/uL 04/29/2025 3:30 AM EDT [facility] ([facility]) RBC 2.59(L) 4.20 - 5.70 10*6/uL 04/29/2025 3:30 AM EDT [facility] ([facility]) Hemoglobin 8.3(L) 13.0 - 17.0 g/dL 04/29/2025 3:30 AM EDT [facility] ([facility]) Hematocrit 23.4(L) 39.0 - 50.0 % 04/29/2025 3:30 AM EDT [facility] ([facility]) MCV 90.3 82.0 - 98.0 fL 04/29/2025 3:30 AM EDT [facility] ([facility]) MCH 32.0 27.0 - 33.0 pg 04/29/2025 3:30 AM EDT [facility] ([facility]) MCHC 35.5(H) 32.0 - 35.0 g/dL 04/29/2025 3:30 AM EDT [facility] ([facility]) RDW 14.5 11.5 - 15.0 % 04/29/2025 3:30 AM EDT [facility] ([facility]) Neutrophils % 90.3(H) 40.0 - 72.0 % 04/29/2025 3:30 AM EDT [facility] ([facility]) Lymphocytes % 3.3(L) 20.0 - 45.0 % 04/29/2025 3:30 AM EDT [facility] ([facility]) Monocytes % 5.6 5.0 - 12.0 % 04/29/2025 3:30 AM EDT [facility] ([facility]) Eosinophils % 0.0 0.0 - 6.0 % 04/29/2025 3:30 AM EDT [facility] ([facility]) Basophils % 0.1 0.0 - 1.0 % 04/29/2025 3:30 AM EDT [facility] ([facility]) Neutrophils Absolute 8.81(H) 1.60 - 7.60 10*3/uL 04/29/2025 3:30 AM EDT [facility] ([facility]) Lymphocytes Absolute 0.32(L) 1.20 - 4.00 10*3/uL 04/29/2025 3:30 AM EDT [facility] ([facility]) Monocytes Absolute 0.55 0.10 - 1.00 10*3/uL 04/29/2025 3:30 AM EDT [facility] ([facility]) Eosinophils Absolute 0.00 0.00 - 0.50 10*3/uL 04/29/2025 3:30 AM EDT [facility] ([facility]) Basophils Absolute 0.01 0.00 - 0.20 10*3/uL 04/29/2025 3:30 AM EDT [facility] ([facility]) Platelets 133(L) 150 - 400 10*3/uL 04/29/2025 3:30 AM EDT [facility] ([facility]) nRBC % 0.3(H) 0 % 04/29/2025 3:30 AM EDT [facility] ([facility]) Immature Granulocytes % 0.7 0.0 - 1.0 % 04/29/2025 3:30 AM EDT [facility] ([facility]) Immature Granulocytes Absolute 0.07 0.00 - 0.20 10*3/uL 04/29/2025 3:30 AM EDT [facility] ([facility]) Immature Platelet Fraction % 5.7 0.8 - 6.3 % 04/29/2025 3:[address] [facility] ([facility]) Blood Venous blood specimen / Unknown Arterial Line / Unknown 04/29/2025 3:04 AM EDT 04/29/2025 3:14 AM EDT us Pepe Raj KLEIN LAB BLOOD ORDERABLES Final Resu lt Performing Organization Address [facility]/ZIP Co de Phone Number [facility] ([facility]) [address] [place], [place] [phone] * Phosphorus (04/29/2025 3:04 AM EDT) Pathologist [facility] Phosphorus 2.8 2.5 - 5.0 mg/dL 04/29/2025 3:38 AM EDT [facility] ([facility]) Blood Arterial blood specimen / Unknown Arterial Line / Unknown 04/29/2025 3:04 AM EDT 04/29/2025 3:13 AM EDT us ePpe Anthony MD LAB BLOOD ORDERABLES Final Resu lt Performing Organization Address [facility] Co de Phone Number [facility] ([facility]) [address] [place] [address] * Magnesium (04/29/2025 3:04 AM EDT) Pathologist [facility] Magnesium 1.9 1.9 - 2.7 mg/dL 04/29/2025 3:38 AM EDT [facility] ([facility]) Blood Arterial blood specimen / Unknown Arterial Line / Unknown 04/29/2025 3:04 AM EDT 04/29/2025 3:13 AM EDT us Pepe Anthony MD LAB BLOOD ORDERABLES Final Resu lt Performing Organization Address [facility]/ZIP Co de Phone Number [facility] ([facility]) [address] [place] [address] * (ABNORMAL) Basic metabolic panel (04/29/2025 3:04 AM EDT) Sodium 132(L) 136 - 145 mmol/L 04/29/2025 3:38 AM EDT [facility] ([facility]) Potassium 3.6 3.5 - 5.1 mmol/L 04/29/2025 3:38 AM EDT [facility] ([facility]) Chloride 97(L) 98 - 107 mmol/L 04/29/2025 3:38 AM EDT [facility] ([facility]) CO2 26 21 - 31 mmol/L 04/29/2025 3:38 AM EDT [facility] ([facility]) BUN 32(H) 7 - 25 mg/dL 04/29/2025 3:38 AM EDT [facility] ([facility]) Creatinine 2.17(H) 0.70 - 1.30 mg/dL 04/29/2025 3:38 AM EDT [facility] ([facility]) Glucose 111(H) 70 - 100 mg/dL 04/29/2025 3:38 AM EDT [facility] ([facility]) Calcium 7.1(L) 8.6 - 10.3 mg/dL 04/29/2025 3:38 AM EDT [facility] ([facility]) Anion Gap 13 7 - 20 mmol/L 04/29/2025 3:38 AM EDT [facility] ([facility]) eGFR 32.2(L) >60.0 mL/min/1. 73m*2 04/29/2025 3:38 AM EDT [facility] ([facility]) Comment:[facility] s estimated glomerular filtration rate (eGFR) [...] individuals. BUN/Creatinine Ratio 14.7 04/18 3:38 AM EDT [facility] ([facility]) Blood Arterial blood specimen / Unknown Arterial Line / Unknown 04/29/2025 3:04 AM EDT 04/29/2025 3:13 AM EDT us Pepe Raj KLEIN LAB BLOOD ORDERABLES Final Resu lt [facility] ([facility]) [address] [place] [address] * (ABNORMAL) Comprehensive metabolic panel (04/29/2025 2:38 AM EDT) Sodium 132(L) 136 - 145 mmol/L 04/29/2025 3:12 AM EDT [facility] ([facility]) Potassium 3.7 3.5 - 5.1 mmol/L 04/29/2025 3:12 AM EDT [facility] ([facility]) Chloride 96(L) 98 - 107 mmol/L 04/29/2025 3:12 AM EDT [facility] ([facility]) CO2 26 21 - 31 mmol/L 04/29/2025 3:12 AM T [facility] ([facility]) Anion Gap 14 7 - 20 mmol/L 04/29/2025 3:12 AM T [facility] ([facility]) BUN 32(H) 7 - 25 mg/dL 04/29/2025 3:12 AM T [facility] ([facility]) Creatinine 2.24(H) 0.70 - 1.30 mg/dL 04/29/2025 3:12 AM T [facility] ([facility]) BUN/Creatinine Ratio 14.3 04/18 3:12 AM T [facility] ([facility]) Glucose 111(H) 70 - 100 mg/dL 04/29/2025 3:12 AM T [facility] ([facility]) Calcium 7.5(L) 8.6 - 10.3 mg/dL 04/29/2025 3:12 AM T [facility] ([facility]) AST 252(H) 13 - 39 U/L 04/29/2025 3:12 AM T [facility] ([facility]) ALT (SGPT) 267(H) 7 - 52 U/L 04/29/2025 3:12 AM T [facility] ([facility]) Alkaline Phosphatase 56 34 - 104 U/L 04/29/2025 3:12 AM T [facility] ([facility]) Total Protein 5.5(L) 6.0 - 8.3 g/dL 04/29/2025 3:12 AM T [facility] ([facility]) Albumin 3.1(L) 3.5 - 5.7 g/dL 04/29/2025 3:12 AM EDT [facility] ([facility]) Total Bilirubin 0.7 0.3 - 1.0 mg/dL 04/29/2025 3:12 AM EDT [facility] ([facility]) eGFR 31.0(L) >60.0 mL/min/1. 73m*2 04/29/2025 3:12 AM EDT [facility] ([facility]) Comment:[facility] s estimated glomerular filtration rate (eGFR) [...] MD LAB BLOOD ORDERABLES Final Resu lt [facility]) [address] [place], [place] [id number] * Ammonia (04/29/2025 2:38 AM EDT) Ammonia 56 18 - 72 umol/L 04/29/2025 3:06 AM EDT [facility] ([facility]) Blood Venous blood specimen / Unknown Arterial Line / Unknown 04/29/2025 2:38 AM EDT 04/29/2025 2:44 AM EDT us Pepe Anthony MD LAB BLOOD ORDERABLES Final Resu lt [facility]) [address] [place], [place] [phone] * Phosphorus (04/29/2025 12:22 AM EDT) Phosphorus 2.7 2.5 - 5.0 mg/dL 04/29/2025 12:58 AM EDT [facility] ([facility]) Blood Arterial blood specimen / Unknown Arterial Line / Unknown 04/29/2025 12:22 AM EDT 04/29/2025 12:34 AM EDT us Pepe Anthony MD LAB BLOOD ORDERABLES Final Resu lt Performing Organization Address City/[facility]/ZIP Co de Phone Number [facility] ([facility]) [address] [place] [address] * Magnesium (04/29/2025 12:22 AM EDT) Magnesium 2.0 1.9 - 2.7 mg/dL 04/29/2025 12:58 AM EDT [facility] ([facility]) Blood Arterial blood specimen / Unknown Arterial Line / Unknown 04/29/2025 12:22 AM EDT 04/29/2025 12:34 AM EDT us Pepe Anthony MD LAB BLOOD ORDERABLES Final Resu lt Performing Organization Address City/[facility]/ZIP Co de Phone Number [facility] ([facility]) [address] [place] [address] * (ABNORMAL) Basic metabolic panel (04/29/2025 12:22 AM EDT) Sodium 132(L) 136 - 145 mmol/L 04/29/2025 12:58 AM EDT [facility] ([facility]) Potassium 3.5 3.5 - 5.1 mmol/L 04/29/2025 12:58 AM EDT [facility] ([facility]) Chloride 97(L) 98 - 107 mmol/L 04/29/2025 12:58 AM EDT [facility] ([facility]) CO2 26 21 - 31 mmol/L 04/29/2025 12:58 AM EDT [facility] ([facility]) BUN 33(H) 7 - 25 mg/dL 04/29/2025 12:58 AM EDT [facility] ([facility]) Creatinine 2.37(H) 0.70 - 1.30 mg/dL 04/29/2025 12:58 AM EDT [facility] ([facility]) Glucose 108(H) 70 - 100 mg/dL 04/29/2025 12:58 AM EDT [facility] ([facility]) Calcium 7.2(L) 8.6 - 10.3 mg/dL 04/29/2025 12:58 AM EDT [facility] ([facility]) Anion Gap 13 7 - 20 mmol/L 04/29/2025 12:58 AM EDT [facility] ([facility]) eGFR 28.9(L) >60.0 mL/min/1. 73m*2 04/29/2025 12:58 AM EDT [facility] ([facility]) Comment:[facility] s estimated glomerular filtration rate (eGFR) [...] individuals. BUN/Creatinine Ratio 13.9 04/18 12:58 AM EDT [facility] ([facility]) Blood Arterial blood specimen / Unknown Arterial Line / Unknown 04/29/2025 12:22 AM EDT 04/29/2025 12:34 AM EDT us Pepe Anthony MD LAB BLOOD ORDERABLES Final Resu lt [facility] ([facility]) [address] [place] [address] * Phosphorus (04/28/2025 8:10 PM EDT) Phosphorus 3.3 2.5 - 5.0 mg/dL 04/28/2025 8:44 PM EDT [facility] ([facility]) Blood Arterial blood specimen / Unknown Arterial Line / Unknown 04/28/2025 8:10 PM EDT 04/28/2025 8:21 PM EDT us Pepe Anthony MD LAB BLOOD ORDERABLES Final Resu lt [facility] ([facility]) [address] [place] [address] * (ABNORMAL) Magnesium (04/28/2025 8:10 PM EDT) Pathologist [facility] Magnesium 1.8(L) 1.9 - 2.7 mg/dL 04/28/2025 8:44 PM EDT [facility] ([facility]) Blood Arterial blood specimen / Unknown Arterial Line / Unknown 04/28/2025 8:10 PM EDT 04/28/2025 8:21 PM EDT us Pepe Anthony MD LAB BLOOD ORDERABLES Final Resu lt [facility]) [address] [place] [address] * (ABNORMAL) Basic metabolic panel (04/28/2025 8:10 PM EDT) Pathologist [facility] Sodium 131(L) 136 - 145 mmol/L 04/28/2025 8:44 PM EDT [facility] ([facility]) Potassium 3.7 3.5 - 5.1 mmol/L 04/28/2025 8:44 PM EDT [facility] ([facility]) Chloride 99 98 - 107 mmol/L 04/28/2025 8:44 PM EDT [facility] ([facility]) CO2 21 21 - 31 mmol/L 04/28/2025 8:44 PM EDT [facility] ([facility]) BUN 38(H) 7 - 25 mg/dL 04/28/2025 8:44 PM EDT [facility] ([facility]) Creatinine 2.65(H) 0.70 - 1.30 mg/dL 04/28/2025 8:44 PM EDT [facility] ([facility]) Glucose 109(H) 70 - 100 mg/dL 04/28/2025 8:44 PM EDT [facility] ([facility]) Calcium 6.9(L) 8.6 - 10.3 mg/dL 04/28/2025 8:44 PM EDT [facility] ([facility]) Anion Gap 15 7 - 20 mmol/L 04/28/2025 8:44 PM EDT [facility] ([facility]) eGFR 25.3(L) >60.0 mL/min/1. 73m*2 04/28/2025 8:44 PM EDT [facility] ([facility]) Comment:[facility] s estimated glomerular filtration rate (eGFR) [...] BUN/Creatinine Ratio 14.3 04/18 8:[address] [facility] ([facility]) Blood Arterial blood specimen / Unknown Arterial Line / Unknown 04/28/2025 8:10 PM EDT 04/28/2025 8:21 PM EDT us Pepe Anthony MD LAB BLOOD ORDERABLES Final Resu lt [facility]) [address] [place] [address] * Phosphorus (04/28/2025 3:57 PM EDT) Phosphorus 4.1 2.5 - 5.0 mg/dL 04/28/2025 4:30 PM EDT [facility] ([facility]) Blood Arterial blood specimen / Unknown Arterial Line / Unknown 04/28/2025 3:57 PM EDT 04/28/2025 4:06 PM EDT us Pepe Anthony MD LAB BLOOD ORDERABLES Final Resu lt [facility] ([facility]) [address] [place] [address] * (ABNORMAL) Comprehensive metabolic panel (04/28/2025 3:57 PM EDT) Sodium 131(L) 136 - 145 mmol/L 04/28/2025 4:31 PM EDT [facility] ([facility]) Potassium 3.6 3.5 - 5.1 mmol/L 04/28/2025 4:31 PM EDT [facility] ([facility]) Chloride 98 98 - 107 mmol/L 04/28/2025 4:31 PM EDT [facility] ([facility]) CO2 22 21 - 31 mmol/L 04/28/2025 4:31 PM EDT [facility] ([facility]) Anion Gap 15 7 - 20 mmol/L 04/28/2025 4:31 PM EDT [facility] ([facility]) BUN 43(H) 7 - 25 mg/dL 04/28/2025 4:31 PM EDT [facility] ([facility]) Creatinine 3.18(H) 0.70 - 1.30 mg/dL 04/28/2025 4:31 PM EDT [facility] ([facility]) BUN/Creatinine Ratio 13.5 04/18 4:31 PM EDT [facility] ([facility]) Glucose 132(H) 70 - 100 mg/dL 04/28/2025 4:31 PM EDT [facility] ([facility]) Calcium 6.9(L) 8.6 - 10.3 mg/dL 04/28/2025 4:31 PM EDT [facility] ([facility]) AST 514(H) 13 - 39 U/L 04/28/2025 4:31 PM EDT [facility] ([facility]) ALT (SGPT) 314(H) 7 - 52 U/L 04/28/2025 4:31 PM EDT [facility] ([facility]) Alkaline Phosphatase 62 34 - 104 U/L 04/28/2025 4:31 PM EDT [facility] ([facility]) Total Protein 5.5(L) 6.0 - 8.3 g/dL 04/28/2025 4:31 PM EDT [facility] ([facility]) Albumin 3.1(L) 3.5 - 5.7 g/dL 04/28/2025 4:31 PM EDT [facility] ([facility]) Total Bilirubin 0.6 0.3 - 1.0 mg/dL 04/28/2025 4:31 PM EDT [facility] ([facility]) eGFR 20.3(L) >60.0 mL/min/1. 73m*2 04/28/2025 4:31 PM EDT [facility] ([facility]) Comment:[facility] s estimated glomerular filtration rate (eGFR) [...] MD LAB BLOOD ORDERABLES Final Resu lt [facility]) [address] [place] [address] * Magnesium (04/28/2025 3:57 PM EDT) Magnesium 2.0 1.9 - 2.7 mg/dL 04/28/2025 4:30 PM EDT [facility] ([facility]) Blood Arterial blood specimen / Unknown Arterial Line / Unknown 04/28/2025 3:57 PM EDT 04/28/2025 4:06 PM EDT us Pepe Anthony MD LAB BLOOD ORDERABLES Final Resu lt Performing Organization Address City/[facility]/ZIP Co de Phone Number [facility] ([facility]) [address] [place] [address] * Phosphorus (04/28/2025 1:46 PM EDT) Phosphorus 4.7 2.5 - 5.0 mg/dL 04/28/2025 2:19 PM EDT [facility] ([facility]) Blood Arterial blood specimen / Unknown Arterial Line / Unknown 04/28/2025 1:46 PM EDT 04/28/2025 1:57 PM EDT us Pepe Anthony MD LAB BLOOD ORDERABLES Final Resu lt Performing Organization Address [facility]/ZIP Co de Phone Number [facility] ([facility]) [address] [place] [address] * Magnesium (04/28/2025 1:46 PM EDT) Magnesium 2.0 1.9 - 2.7 mg/dL 04/28/2025 2:[address] [facility] ([facility]) Blood Arterial blood specimen / Unknown Arterial Line / Unknown 04/28/2025 1:46 PM EDT 04/28/2025 1:57 PM EDT us Pepe Anthony MD LAB BLOOD ORDERABLES Final Resu lt Performing Organization Address City/[facility]/ZIP Co de Phone Number [facility] ([facility]) [address] [place], [place] [phone] * (ABNORMAL) Basic metabolic panel (04/28/2025 1:46 PM EDT) Sodium 131(L) 136 - 145 mmol/L 04/28/2025 2:19 PM EDT [facility] ([facility]) Potassium 3.6 3.5 - 5.1 mmol/L 04/28/2025 2:19 PM EDT [facility] ([facility]) Chloride 100 98 - 107 mmol/L 04/28/2025 2:19 PM EDT [facility] ([facility]) CO2 21 21 - 31 mmol/L 04/28/2025 2:19 PM EDT [facility] ([facility]) BUN 45(H) 7 - 25 mg/dL 04/28/2025 2:19 PM T [facility] ([facility]) Creatinine 3.34(H) 0.70 - 1.30 mg/dL 04/28/2025 2:19 PM T [facility] ([facility]) Glucose 123(H) 70 - 100 mg/dL 04/28/2025 2:19 PM T [facility] ([facility]) Calcium 6.3(L) 8.6 - 10.3 mg/dL 04/28/2025 2:19 PM T [facility] ([facility]) Anion Gap 14 7 - 20 mmol/L 04/28/2025 2:19 PM T [facility] ([facility]) eGFR 19.2(L) >60.0 mL/min/1. 73m*2 04/28/2025 2:19 PM T [facility] ([facility]) Comment:[facility] s estimated glomerular filtration rate (eGFR) [...] individuals. BUN/Creatinine Ratio 13.5 04/18 2:19 PM T [facility] ([facility]) Blood Arterial blood specimen / Unknown Arterial Line / Unknown 04/28/2025 1:46 PM EDT 04/28/2025 1:57 PM EDT us Pepe Anthony MD LAB BLOOD ORDERABLES Final Resu lt [facility] ([facility]) [address] [place] [address] * POCT glucose meter (04/28/2025 1:44 PM EDT) Glucose POC 88 70 - 105 mg/dL 04/28/2025 1:56 PM EDT [facility] ([facility]) Comment:[email or web address] Blood Capillary blood specimen / Unknown 04/28/2025 1:44 PM EDT 04/28/2025 1:56 PM EDT Narrative [facility] ([facility]) - 04/28/2025 1:56 PM EDT Waived Testing in the ED is performed under the ED CLIA certificate #[id number]. us Pepe Anthony MD LAB BLOOD ORDERABLES Final Resu lt Performing Organization Address [facility] Co de Phone Number [facility] ([facility]) [address] [place] [address] * (ABNORMAL) Arterial Blood Gases (04/28/2025 8:54 AM EDT) pH, Arterial 7.36 7.35 - 7.45 04/28/2025 8:54 AM EDT [facility]PIRATORY THERAP[facility] pCO2, Arterial 30(L) 35 - 45 mmHg 04/28/2025 8:54 AM EDT [facility]PIR[facility] THERAP[facility] pO2, Arterial 86 83 - 108 mmHg 04/28/2025 8:54 AM EDT [facility]PIR[facility] THERAP[facility] HCO3, Arterial 16.9(L) 21.0 - 28.0 mmol/L 04/28/2025 8:54 AM EDT [facility]ER[facility] O2 Sat, Arterial 98.1 94.0 - 100.0 % 04/28/2025 8:54 AM EDT [facility] RESPIRAT[facility] THERAPY Base Excess, Arterial -7.3(L) -2.0 - 3.0 mmol/L 04/28/2025 8:54 AM EDT [facility]ER[facility] Oxyhemoglobin, Arterial 96.2 94.0 - 97.0 % 04/28/2025 8:54 AM EDT [facility] RESPIRATORY THERAPY Temperature 37.0 C 04/28/2025 8:54 AM EDT [facility] RESPIRATORY THERAPY Oxygen Device #1 Cannula 04/28/20 8:54 AM EDT [facility] RESPIRATORY THERAPY LPM 4.0 LPM 04/28/2025 8:54 AM EDT [facility] RESPIRATORY THERAPY PF Ratio 04/28/2025 8:54 AM EDT [facility] RESPIR[facility] THERAPY Comment:C^Incalculable A-aDo2 04/28/2025 8:54 AM EDT [facility] RESPIRATORY THERAPY Comment:C^Incalculable paO2/pAO2 04/28/2025 8:54 AM EDT [facility] RESPIRATORY THERAPY Comment:C^Incalculable Blood Arterial blood specimen / Unknown 04/28/2025 8:54 AM EDT 04/28/2025 8:54 AM EDT us Pepe Anthony MD LAB BLOOD ORDERABLES Final Resu lt Performing Organization Address City/[facility]/ZIP Co de Phone Number [facility] RESPIRATORY THERAPY [address] [place] [address], [place] * Phosphorus (04/28/2025 8:37 AM EDT) Phosphorus 4.9 2.5 - 5.0 mg/dL 04/28/2025 9:10 AM EDT [facility] ([facility]) Blood Arterial blood specimen / Unknown Arterial Line / Unknown 04/28/2025 8:37 AM EDT 04/28/2025 8:47 AM EDT us Pepe Anthony MD LAB BLOOD ORDERABLES Final Resu lt [facility] ([facility]) [address] [place] [address] * Magnesium (04/28/2025 8:37 AM EDT) Magnesium 2.1 1.9 - 2.7 mg/dL 04/28/2025 9:10 AM EDT [facility] ([facility]) Blood Arterial blood specimen / Unknown Arterial Line / Unknown 04/28/2025 8:37 AM EDT 04/28/2025 8:47 AM EDT us Peperenée Anthony MD LAB BLOOD ORDERABLES Final Resu lt [facility] ([facility]) [address] [place] [address] * (ABNORMAL) Basic metabolic panel (04/28/2025 8:37 AM EDT) Sodium 130(L) 136 - 145 mmol/L 04/28/2025 9:10 AM EDT [facility] ([facility]) Potassium 4.3 3.5 - 5.1 mmol/L 04/28/2025 9:10 AM EDT [facility] ([facility]) Chloride 99 98 - 107 mmol/L 04/28/2025 9:10 AM EDT [facility] ([facility]) CO2 21 21 - 31 mmol/L 04/28/2025 9:10 AM EDT [facility] ([facility]) BUN 42(H) 7 - 25 mg/dL 04/28/2025 9:10 AM EDT [facility] ([facility]) Creatinine 3.36(H) 0.70 - 1.30 mg/dL 04/28/2025 9:10 AM EDT [facility] ([facility]) Glucose 121(H) 70 - 100 mg/dL 04/28/2025 9:10 AM EDT [facility] ([facility]) Calcium 6.7(L) 8.6 - 10.3 mg/dL 04/28/2025 9:10 AM EDT [facility] ([facility]) Anion Gap 14 7 - 20 mmol/L 04/28/2025 9:10 AM EDT [facility] ([facility]) eGFR 19.0(L) >60.0 mL/min/1. 73m*2 04/28/2025 9:10 AM EDT [facility] Comment:[facility] s estimated glomerular filtration rate (eGFR) [...] BUN/Creatinine Ratio 12.5 04/18 9:10 AM EDT [facility] ([facility]) Blood Arterial blood specimen / Unknown Arterial Line / Unknown 04/28/2025 8:37 AM EDT 04/28/2025 8:47 AM EDT us Pepe Raj KLEIN LAB BLOOD ORDERABLES Final Resu lt [facility]) [address] [place] [address] * (ABNORMAL) CBC (04/28/2025 3:21 AM EDT) Auto WBC 19.72(H) 4.00 - 10.60 10*3/uL 04/28/2025 4:06 AM EDT [facility] ([facility]) RBC 2.90(L) 4.20 - 5.70 10*6/uL 04/28/2025 4:06 AM EDT [facility] ([facility]) Hemoglobin 9.4(L) 13.0 - 17.0 g/dL 04/28/2025 4:06 AM EDT [facility] ([facility]) Hematocrit 27.2(L) 39.0 - 50.0 % 04/28/2025 4:06 AM EDT [facility] ([facility]) MCV 93.8 82.0 - 98.0 fL 04/28/2025 4:06 AM EDT [facility] ([facility]) MCH 32.4 27.0 - 33.0 pg 04/28/2025 4:06 AM EDT [facility] ([facility]) MCHC 34.6 32.0 - 35.0 g/dL 04/28/2025 4:06 AM EDT [facility] ([facility]) RDW 14.3 11.5 - 15.0 % 04/28/2025 4:06 AM EDT [facility] ([facility]) Platelets 163 150 - 400 10*3/uL 04/28/2025 4:06 AM EDT [facility] ([facility]) Blood Venous blood specimen / Unknown Arterial Line / Unknown 04/28/2025 3:21 AM EDT 04/28/2025 3:41 AM EDT us Pepe Anthony MD LAB BLOOD ORDERABLES Final Resu lt [facility] ([facility]) [address] [place] [address] * Phosphorus (04/28/2025 3:06 AM EDT) Phosphorus 4.4 2.5 - 5.0 mg/dL 04/28/2025 3:38 AM EDT [facility] ([facility]) Blood Venous blood specimen / Unknown Arterial Line / Unknown 04/28/2025 3:06 AM EDT 04/28/2025 3:16 AM EDT us Pepe Anthony MD LAB BLOOD ORDERABLES Final Resu lt [facility] ([facility]) [address] [place] [address] * Magnesium (04/28/2025 3:06 AM EDT) Magnesium 1.9 1.9 - 2.7 mg/dL 04/28/2025 3:38 AM EDT [facility]) Blood Venous blood specimen / Unknown Arterial Line / Unknown 04/28/2025 3:06 AM EDT 04/28/2025 3:16 AM EDT us Pepe Raj MD LAB BLOOD ORDERABLES Final Resu lt [facility] ([facility]) [address] [place] [address] * (ABNORMAL) Basic metabolic panel (04/28/2025 3:06 AM EDT) Sodium 129(L) 136 - 145 mmol/L 04/28/2025 3:38 AM EDT [facility] ([facility]) Potassium 4.3 3.5 - 5.1 mmol/L 04/28/2025 3:38 AM EDT [facility] ([facility]) Chloride 100 98 - 107 mmol/L 04/28/2025 3:38 AM EDT [facility] ([facility]) CO2 16(L) 21 - 31 mmol/L 04/28/2025 3:38 AM EDT [facility] ([facility]) BUN 41(H) 7 - 25 mg/dL 04/28/2025 3:38 AM EDT [facility] ([facility]) Creatinine 3.23(H) 0.70 - 1.30 mg/dL 04/28/2025 3:38 AM EDT [facility] ([facility]) Glucose 151(H) 70 - 100 mg/dL 04/28/2025 3:38 AM EDT [facility] ([facility]) Calcium 7.0(L) 8.6 - 10.3 mg/dL 04/28/2025 3:38 AM EDT [facility] ([facility]) Anion Gap 17 7 - 20 mmol/L 04/28/2025 3:38 AM EDT [facility] ([facility]) eGFR 20.0(L) >60.0 mL/min/1. 73m*2 04/28/2025 3:38 AM EDT [facility] ([facility]) Comment:[facility] s estimated glomerular filtration rate (eGFR) [...] BUN/Creatinine Ratio 12.7 04/18 3:38 AM EDT [facility] ([facility]) Blood Venous blood specimen / Unknown Arterial Line / Unknown 04/28/2025 3:06 AM EDT 04/28/2025 3:16 AM EDT us Zhen Feldman MD LAB BLOOD ORDERABLES Final Resul t [facility] ([facility]) [address] [place] [address] * XR abdomen 1 view (04/28/2025 12:50 [...] - 5.0 mg/dL 04/28/2025 12:47 AM EDT [facility] ([facility]) Blood Arterial blood specimen / Unknown Arterial Line / Unknown 04/28/2025 12:06 AM EDT 04/28/2025 12:12 AM EDT us Pepe Anthony MD LAB BLOOD ORDERABLES Final Resu lt Performing Organization Address [facility]/ZIP Co de Phone Number [facility]) [address] [place] [address] * Magnesium (04/28/2025 12:06 AM EDT) Magnesium 1.9 1.9 - 2.7 mg/dL 04/28/2025 12:47 AM EDT [facility]) Blood Arterial blood specimen / Unknown Arterial Line / Unknown 04/28/2025 12:06 AM EDT 04/28/2025 12:12 AM EDT us Pepe Anthony MD LAB BLOOD ORDERABLES Final Resu lt [facility]) [address] [place], [place] [id number] * (ABNORMAL) Basic metabolic panel (04/28/2025 12:06 AM EDT) Sodium 129(L) 136 - 145 mmol/L 04/28/2025 12:48 AM EDT [facility]) Potassium 4.1 3.5 - 5.1 mmol/L 04/28/2025 12:48 AM EDT [facility] ([facility]) Chloride 101 98 - 107 mmol/L 04/28/2025 12:48 AM EDT [facility] ([facility]) CO2 13(LL) 21 - 31 mmol/L 04/28/2025 12:48 AM EDT [facility] ([facility]) BUN 44(H) 7 - 25 mg/dL 04/28/2025 12:48 AM EDT [facility] ([facility]) Creatinine 3.55(H) 0.70 - 1.30 mg/dL 04/28/2025 12:48 AM T [facility] ([facility]) Glucose 161(H) 70 - 100 mg/dL 04/28/2025 12:48 AM EDT [facility] ([facility]) Calcium 6.1(L) 8.6 - 10.3 mg/dL 04/28/2025 12:48 AM T [facility] ([facility]) Anion Gap 19 7 - 20 mmol/L 04/28/2025 12:48 AM T [facility] ([facility]) eGFR 17.8(L) >60.0 mL/min/1. 73m*2 04/28/2025 12:48 AM T [facility] ([facility]) Comment:[facility] s estimated glomerular filtration rate (eGFR) [...] individuals. BUN/Creatinine Ratio 12.4 04/18 12:48 AM T [facility] ([facility]) Blood Arterial blood specimen / Unknown Arterial Line / Unknown 04/28/2025 12:06 AM EDT 04/28/2025 12:12 AM EDT us Pepe Anthony MD LAB BLOOD ORDERABLES Final Resu lt Performing Organization Address City/[facility]/ZIP Co de Phone Number [facility] ([facility]) [address] [place], [place] [id number] * (ABNORMAL) Magnesium (04/27/2025 7:57 PM EDT) Magnesium 1.8(L) 1.9 - 2.7 mg/dL 04/27/2025 9:26 PM EDT [facility] ([facility]) Blood Venous blood specimen / Unknown Arterial Line / Unknown 04/27/2025 7:57 PM EDT 04/27/2025 8:11 PM EDT us Pepe Anthony MD LAB BLOOD ORDERABLES Final Resu lt Performing Organization Address [facility] Co de Phone Number [facility] ([facility]) [address] [place] [address] * (ABNORMAL) Hemoglobin and hematocrit, blood (04/27/2025 7:57 PM EDT) Hemoglobin 10.6(L) 13.0 - 17.0 g/dL 04/27/2025 8:28 PM EDT [facility] ([facility]) Hematocrit 30.2(L) 39.0 - 50.0 % 04/27/2025 8:[address] [facility] ([facility]) Blood Venous blood specimen / Unknown Arterial Line / Unknown 04/27/2025 7:57 PM EDT 04/27/2025 8:10 PM EDT us Pepe Anthony MD LAB BLOOD ORDERABLES Final Resu lt Performing Organization Address City/[facility]/ZIP Co de Phone Number [facility]) [address] [place] [address] * (ABNORMAL) Basic metabolic panel (04/27/2025 7:57 PM EDT) Sodium 128(L) 136 - 145 mmol/L 04/27/2025 8:36 PM EDT [facility] ([facility]) Potassium 4.6 3.5 - 5.1 mmol/L 04/27/2025 8:36 PM T [facility] ([facility]) Chloride 98 98 - 107 mmol/L 04/27/2025 8:36 PM T [facility] ([facility]) CO2 15(L) 21 - 31 mmol/L 04/27/2025 8:36 PM T [facility] ([facility]) BUN 47(H) 7 - 25 mg/dL 04/27/2025 8:36 PM T [facility] ([facility]) Creatinine 3.53(H) 0.70 - 1.30 mg/dL 04/27/2025 8:36 PM T [facility] ([facility]) Glucose 140(H) 70 - 100 mg/dL 04/27/2025 8:36 PM T [facility] ([facility]) Calcium 6.5(L) 8.6 - 10.3 mg/dL 04/27/2025 8:36 PM [facility] ([facility]) Anion Gap 20 7 - 20 mmol/L 04/27/2025 8:36 PM [facility] ([facility]) eGFR 17.9(L) >60.0 mL/min/1. 73m*2 04/27/2025 8:36 PM [facility] ([facility]) Comment:[facility] s estimated glomerular filtration rate (eGFR) [...] individuals. BUN/Creatinine Ratio 13.3 04/18 8:36 PM T [facility] ([facility]) Blood Venous blood specimen / Unknown Arterial Line / Unknown 04/27/2025 7:57 PM EDT 04/27/2025 8:11 PM EDT us Zhen Feldman MD LAB BLOOD ORDERABLES Final Resul t Performing Organization Address City/[facility]/ZIP Co de Phone Number [facility]) [address] [place] [address] * Phosphorus (04/27/2025 5:38 PM EDT) Phosphorus 3.0 2.5 - 5.0 mg/dL 04/27/2025 6:01 PM EDT [facility] ([facility]) Blood Arterial blood specimen / Unknown 04/27/2025 5:38 PM EDT 04/27/2025 5:38 PM EDT us Pepe Anthony MD LAB BLOOD ORDERABLES Final Resu lt Performing Organization Address [facility] Co de Phone Number [facility]) [address] [place] [address] * (ABNORMAL) Magnesium (04/27/2025 5:38 PM EDT) Magnesium 1.6(L) 1.9 - 2.7 mg/dL 04/27/2025 6:01 PM EDT [facility]) Blood Arterial blood specimen / Unknown 04/27/2025 5:38 PM EDT 04/27/2025 5:38 PM EDT us Pepe Anthony MD LAB BLOOD ORDERABLES Final Resu lt Performing Organization Address City/[facility]/ZIP Co de Phone Number [facility] ([facility]) [address] [place] [address] * (ABNORMAL) Basic metabolic panel (04/27/2025 5:38 PM EDT) Sodium 129(L) 136 - 145 mmol/L 04/27/2025 6:01 PM EDT [facility] ([facility]) Potassium 4.5 3.5 - 5.1 mmol/L 04/27/2025 6:01 PM EDT [facility] ([facility]) Chloride 100 98 - 107 mmol/L 04/27/2025 6:01 PM EDT [facility] ([facility]) CO2 16(L) 21 - 31 mmol/L 04/27/2025 6:01 PM EDT [facility] ([facility]) BUN 46(H) 7 - 25 mg/dL 04/27/2025 6:01 PM EDT [facility] ([facility]) Creatinine 3.57(H) 0.70 - 1.30 mg/dL 04/27/2025 6:01 PM EDT [facility] ([facility]) Glucose 134(H) 70 - 100 mg/dL 04/27/2025 6:01 PM EDT [facility] ([facility]) Calcium 6.7(L) 8.6 - 10.3 mg/dL 04/27/2025 6:01 PM EDT [facility] ([facility]) Anion Gap 18 7 - 20 mmol/L 04/27/2025 6:01 PM EDT [facility] ([facility]) eGFR 17.7(L) >60.0 mL/min/1. 73m*2 04/27/2025 6:01 PM EDT [facility] ([facility]) Comment:[facility] s estimated glomerular filtration rate (eGFR) [...] BUN/Creatinine Ratio 12.9 04/18 6:01 PM EDT [facility] ([facility]) Blood Arterial blood specimen / Unknown 04/27/2025 5:38 PM EDT 04/27/2025 5:38 PM EDT us Pepe Anthony MD LAB BLOOD ORDERABLES Final Resu lt [facility] ([facility]) [address] [place] [address] * (ABNORMAL) POCT glucose meter (04/27/2025 5:14 PM EDT) Glucose POC 148(H) 70 - 105 mg/dL 04/27/2025 5:31 PM EDT [facility] ([facility]) Comment:[email or web address] Blood Capillary blood specimen / Unknown 04/27/2025 5:14 PM EDT 04/27/2025 5:31 PM EDT [facility] ([facility]) - 04/27/2025 5:31 PM EDT Waived Testing in the ED is performed under the ED CLIA certificate #[id number]. us Pepe Anthony MD LAB BLOOD ORDERABLES Final Resu lt Performing Organization Address City/[facility]/ZIP Co de Phone Number [facility]) [address] [place] [address] * (ABNORMAL) POCT glucose meter (04/27/2025 12:01 PM EDT) Glucose POC 153(H) 70 - 105 mg/dL 04/27/2025 12:12 PM EDT [facility] ([facility]) Comment:[email or web address] Blood Capillary blood specimen / Unknown 04/27/2025 12:01 PM EDT 04/27/2025 12:12 PM EDT [facility] ([facility]) - 04/27/2025 12:12 PM EDT Waived Testing in the ED is performed under the ED CLIA certificate #[id number]. us Pepe Anthony MD LAB BLOOD ORDERABLES Final Resu lt [facility] ([facility]) [address] [place] [address] * (ABNORMAL) POCT glucose meter (04/27/2025 10:07 AM EDT) Glucose POC 170(H) 70 - 105 mg/dL 04/27/2025 10:18 AM EDT [facility] ([facility]) Comment:[email or web address] Blood Capillary blood specimen / Unknown 04/27/2025 10:07 AM EDT 04/27/2025 10:18 AM EDT Narrative [facility] ([facility]) - 04/27/2025 10:18 AM EDT Waived Testing in the ED is performed under the ED CLIA certificate #[id number]. us Pepe Anthony MD LAB BLOOD ORDERABLES Final Resu lt Performing Organization Address City/[facility]/ZIP Co de Phone Number [facility]) [address] [place], [place] [id number] * Phosphorus (04/27/2025 5:36 AM EDT) Phosphorus 3.5 2.5 - 5.0 mg/dL 04/27/2025 6:[address] [facility] ([facility]) Blood Arterial blood specimen / Unknown Arterial Line / Unknown 04/27/2025 5:36 AM EDT 04/27/2025 5:54 AM EDT us Pepe Anthony MD LAB BLOOD ORDERABLES Final Resu lt Performing Organization Address City/[facility]/ZIP Co de Phone Number [facility]) [address] [place] [address] * Magnesium (04/27/2025 5:36 AM EDT) Magnesium 1.9 1.9 - 2.7 mg/dL 04/27/2025 6:[address] [facility] ([facility]) Blood Arterial blood specimen / Unknown Arterial Line / Unknown 04/27/2025 5:36 AM EDT 04/27/2025 5:54 AM EDT us Pepe Anthony MD LAB BLOOD ORDERABLES Final Resu lt [facility] ([facility]) [address] [place] [address] * (ABNORMAL) Basic metabolic panel (04/27/2025 5:36 AM EDT) Sodium 127(L) 136 - 145 mmol/L 04/27/2025 6:24 AM EDT [facility] ([facility]) Potassium 4.5 3.5 - 5.1 mmol/L 04/27/2025 6:24 AM EDT [facility] ([facility]) Chloride 98 98 - 107 mmol/L 04/27/2025 6:24 AM EDT [facility] ([facility]) CO2 16(L) 21 - 31 mmol/L 04/27/2025 6:24 AM EDT [facility] ([facility]) BUN 41(H) 7 - 25 mg/dL 04/27/2025 6:24 AM EDT [facility] ([facility]) Creatinine 3.03(H) 0.70 - 1.30 mg/dL 04/27/2025 6:24 AM EDT [facility] ([facility]) Glucose 175(H) 70 - 100 mg/dL 04/27/2025 6:24 AM EDT [facility] ([facility]) Calcium 7.1(L) 8.6 - 10.3 mg/dL 04/27/2025 6:24 AM EDT [facility] ([facility]) Anion Gap 18 7 - 20 mmol/L 04/27/2025 6:24 AM EDT [facility] ([facility]) eGFR 21.5(L) >60.0 mL/min/1. 73m*2 04/27/2025 6:24 AM EDT [facility] ([facility]) Comment:[facility] s estimated glomerular filtration rate (eGFR) [...] BUN/Creatinine Ratio 13.5 04/18 6:24 AM EDT [facility] ([facility]) Blood Arterial blood specimen / Unknown Arterial Line / Unknown 04/27/2025 5:36 AM EDT 04/27/2025 5:54 AM EDT us Peperenée Anthony MD LAB BLOOD ORDERABLES Final Resu lt [facility] ([facility]) [address] [place] [address] * (ABNORMAL) CBC (04/27/2025 5:36 AM EDT) Auto WBC 8.21 4.00 - 10.60 10*3/uL 04/27/2025 6:24 AM EDT [facility] ([facility]) RBC 3.50(L) 4.20 - 5.70 10*6/uL 04/27/2025 6:24 AM EDT [facility] ([facility]) Hemoglobin 11.2(L) 13.0 - 17.0 g/dL 04/27/2025 6:24 AM EDT [facility] ([facility]) Hematocrit 32.0(L) 39.0 - 50.0 % 04/27/2025 6:24 AM EDT [facility] ([facility]) MCV 91.4 82.0 - 98.0 fL 04/27/2025 6:24 AM EDT [facility] ([facility]) MCH 32.0 27.0 - 33.0 pg 04/27/2025 6:24 AM EDT [facility] ([facility]) MCHC 35.0 32.0 - 35.0 g/dL 04/27/2025 6:24 AM EDT [facility] ([facility]) RDW 14.0 11.5 - 15.0 % 04/27/2025 6:24 AM EDT [facility] ([facility]) Platelets 287 150 - 400 10*3/uL 04/27/2025 6:24 AM EDT [facility] ([facility]) Blood Venous blood specimen / Unknown Arterial Line / Unknown 04/27/2025 5:36 AM EDT 04/27/2025 5:54 AM EDT us Pepe Anthony MD LAB BLOOD ORDERABLES Final Resu lt [facility] ([facility]) [address] [place] [address] * Co-oximetry (04/27/2025 4:25 AM EDT) Oxyhemoglobin 36.0 % 04/27/2025 4:31 AM EDT [facility]ER[facility] Total Hemoglobin 11.5 g/dL 04/27/20 4:31 AM EDT [facility] O2 Sat 36.4 % 04/27/2025 4:31 AM EDT [facility] Blood Mixed venous blood specimen / Unknown Arterial Line / Unknown 04/27/2025 4:25 AM EDT 04/27/2025 4:25 AM EDT us Pepe Anthony MD LAB BLOOD ORDERABLES Final Resu lt Performing Organization Address [facility]/ZIP Co de Phone Number [facility]ER[facility] [address] [place] [address], [place] * Phosphorus (04/26/2025 11:59 PM EDT) Phosphorus 3.4 2.5 - 5.0 mg/dL 04/27/2025 12:48 AM EDT [facility] ([facility]) Blood Arterial blood specimen / Unknown Arterial Line / Unknown 04/26/2025 11:59 PM EDT 04/27/2025 12:24 AM EDT us Pepe Anthony MD LAB BLOOD ORDERABLES Final Resu lt [facility] ([facility]) [address] [place] [address] * Magnesium (04/26/2025 11:59 PM EDT) Magnesium 2.0 1.9 - 2.7 mg/dL 04/27/2025 12:48 AM EDT [facility] ([facility]) Blood Arterial blood specimen / Unknown Arterial Line / Unknown 04/26/2025 11:59 PM EDT 04/27/2025 12:24 AM EDT us Pepe Anthony MD LAB BLOOD ORDERABLES Final Resu lt [facility] ([facility]) [address] [place] [address] * (ABNORMAL) Basic metabolic panel (04/26/2025 11:59 PM EDT) Sodium 127(L) 136 - 145 mmol/L 04/27/2025 12:48 AM EDT [facility] ([facility]) Potassium 4.3 3.5 - 5.1 mmol/L 04/27/2025 12:48 AM EDT [facility] ([facility]) Chloride 98 98 - 107 mmol/L 04/27/2025 12:48 AM EDT [facility] ([facility]) CO2 15(L) 21 - 31 mmol/L 04/27/2025 12:48 AM EDT [facility] ([facility]) BUN 41(H) 7 - 25 mg/dL 04/27/2025 12:48 AM EDT [facility] ([facility]) Creatinine 2.92(H) 0.70 - 1.30 mg/dL 04/27/2025 12:48 AM EDT [facility] ([facility]) Glucose 181(H) 70 - 100 mg/dL 04/27/2025 12:48 AM EDT [facility] ([facility]) Calcium 6.8(L) 8.6 - 10.3 mg/dL 04/27/2025 12:48 AM EDT [facility] ([facility]) Anion Gap 18 7 - 20 mmol/L 04/27/2025 12:48 AM EDT [facility] ([facility]) eGFR 22.5(L) >60.0 mL/min/1. 73m*2 04/27/2025 12:48 AM EDT [facility] ([facility]) Comment:[facility] s estimated glomerular filtration rate (eGFR) [...] BUN/Creatinine Ratio 14.0 04/18 12:48 AM EDT [facility] ([facility]) Blood Arterial blood specimen / Unknown Arterial Line / Unknown 04/26/2025 11:59 PM EDT 04/27/2025 12:24 AM EDT us Pepe Anthony MD LAB BLOOD ORDERABLES Final Resu lt [facility]) [address] [place] [address] * Phosphorus (04/26/2025 4:24 PM EDT) Phosphorus 2.8 2.5 - 5.0 mg/dL 04/26/2025 4:59 PM EDT [facility]) Blood Arterial blood specimen / Unknown Arterial Line / Unknown 04/26/2025 4:24 PM EDT 04/26/2025 4:38 PM EDT us Pepe Anthony MD LAB BLOOD ORDERABLES Final Resu lt [facility]) [address] [place] [address] * (ABNORMAL) Basic metabolic panel (04/26/2025 4:24 PM EDT) Sodium 127(L) 136 - 145 mmol/L 04/26/2025 4:59 PM EDT [facility] ([facility]) Potassium 4.1 3.5 - 5.1 mmol/L 04/26/2025 4:59 PM EDT [facility] ([facility]) Chloride 97(L) 98 - 107 mmol/L 04/26/2025 4:59 PM EDT [facility] ([facility]) CO2 18(L) 21 - 31 mmol/L 04/26/2025 4:59 PM EDT [facility] ([facility]) BUN 39(H) 7 - 25 mg/dL 04/26/2025 4:59 PM T [facility] ([facility]) Creatinine 2.84(H) 0.70 - 1.30 mg/dL 04/26/2025 4:59 PM EDT [facility] ([facility]) Glucose 168(H) 70 - 100 mg/dL 04/26/2025 4:59 PM EDT [facility] ([facility]) Calcium 7.1(L) 8.6 - 10.3 mg/dL 04/26/2025 4:59 PM T [facility] ([facility]) Anion Gap 16 7 - 20 mmol/L 04/26/2025 4:59 PM T [facility] ([facility]) eGFR 23.3(L) >60.0 mL/min/1. 73m*2 04/26/2025 4:59 PM T [facility] ([facility]) Comment:[facility] s estimated glomerular filtration rate (eGFR) [...] individuals. BUN/Creatinine Ratio 13.7 03/2025 4:59 PM T [facility] ([facility]) Blood Arterial blood specimen / Unknown Arterial Line / Unknown 04/26/2025 4:24 PM EDT 04/26/2025 4:38 PM EDT us Pepe Anthony MD LAB BLOOD ORDERABLES Final Resu lt Performing Organization Address City/[facility]/ZIP Co de Phone Number [facility]) [address] [place] [phone] * Magnesium (04/26/2025 4:24 PM EDT) Magnesium 2.1 1.9 - 2.7 mg/dL 04/26/2025 4:[address] [facility] ([facility]) Blood Arterial blood specimen / Unknown Arterial Line / Unknown 04/26/2025 4:24 PM EDT 04/26/2025 4:38 PM EDT us Pepe Anthony MD LAB BLOOD ORDERABLES Final Resu lt Performing Organization Address [facility]/ZIP Co de Phone Number [facility]) [address] [place] [phone] * Urea nitrogen, urine (04/26/2025 8:40 AM EDT) Urea Nitrogen, Ur 237 mg/dL 04/26/2025 9:11 AM EDT [facility]) Urine Urine specimen obtained by clean catch procedure / Unknown Non-blood Collection / Unknown 04/26/2025 8:40 AM EDT 04/26/2025 8:52 AM EDT us Pepe Anthony MD LAB URINE ORDERABLES Final Resu lt Performing Organization Address City/[facility]/ZIP Co de Phone Number [facility]) [address] [place] [address] * Sodium, urine, random (04/26/2025 8:40 AM EDT) Sodium, Ur 92 mmol/L 04/26/2025 9:11 AM EDT [facility]) Urine Urine specimen obtained by clean catch procedure / Unknown Non-blood Collection / Unknown 04/26/2025 8:40 AM EDT 04/26/2025 8:52 AM EDT us Pepe Anthony MD LAB URINE ORDERABLES Final Resu lt [facility] ([facility]) [address] [place] [address] * Creatinine, urine, random (04/26/2025 8:40 AM EDT) Creatinine, Ur 83.0 26 - 299 mg/dL 04/26/2025 9:11 AM EDT [facility] ([facility]) Urine Urine specimen obtained by clean catch procedure / Unknown Non-blood Collection / Unknown 04/26/2025 8:40 AM EDT 04/26/2025 8:52 AM EDT us Pepe Anthony MD LAB URINE ORDERABLES Final Resu lt [facility] ([facility]) [address] [place] [address] * (ABNORMAL) Urinalysis (04/26/2025 8:40 AM EDT) Color, Urine Light-Yellow Colorless, Yellow, Light-Yellow 04/26/2025 9:27 AM EDT [facility] ([facility]) Clarity, Urine Clear Clear 04/26/2025 9:27 AM EDT [facility] ([facility]) pH, Urine 5.0 5.0 - 8.0 pH 04/26/2025 9:27 AM EDT [facility] ([facility]) Leukocytes, Urine Negative Negative 04/26/2025 9:27 AM EDT [facility] ([facility]) Nitrite, Urine Negative Negative 04/26/2025 9:27 AM EDT [facility] ([facility]) Protein, Urine Negative Negative mg/dL 04/26/2025 9:27 AM EDT [facility] ([facility]) Glucose, Urine 250(A) Normal mg/dL 04/26/2025 9:27 AM EDT [facility] ([facility]) Bilirubin, Urine Negative Negative 04/26/2025 9:27 AM EDT [facility]) Specific [place], Urine 1.013 1.010 - 1.030 04/26/2025 9:27 AM EDT [facility] ([facility]) Ketones, Urine Negative Negative mg/dL 04/26/2025 9:27 AM EDT [facility] ([facility]) Blood, Urine Negative Negative 04/26/2025 9:27 AM EDT [facility] ([facility]) Urobilinogen, Urine Normal Normal mg/dL 04/26/2025 9:27 AM EDT [facility]) Urine Urine specimen obtained by clean catch procedure / Unknown Non-blood Collection / Unknown 04/26/2025 8:40 AM EDT 04/26/2025 8:52 AM EDT Narrative [facility] ([facility]) - 04/26/2025 9:27 AM EDT Microscopics not performed on urines with negative chemical reactions unless requested on original order. us Pepe Anthony MD LAB URINE ORDERABLES Final Resu lt Performing Organization Address City/[facility]/ZIP Co de Phone Number [facility]) [address] [place] [address] * (ABNORMAL) Magnesium (04/26/2025 3:05 AM EDT) Magnesium 1.8(L) 1.9 - 2.7 mg/dL 04/26/2025 3:42 AM EDT [facility] ([facility]) Blood Venous blood specimen / Unknown Arterial Line / Unknown 04/26/2025 3:05 AM EDT 04/26/2025 3:17 AM EDT us Pepe Anthony MD LAB BLOOD ORDERABLES Final Resu lt [facility]) [address] [place] [address] * (ABNORMAL) Basic metabolic panel (04/26/2025 3:05 AM EDT) Sodium 129(L) 136 - 145 mmol/L 04/26/2025 3:42 AM [facility] ([facility]) Potassium 4.2 3.5 - 5.1 mmol/L 04/26/2025 3:42 AM [facility] ([facility]) Chloride 100 98 - 107 mmol/L 04/26/2025 3:42 AM [facility] ([facility]) CO2 19(L) 21 - 31 mmol/L 04/26/2025 3:42 AM [facility] ([facility]) BUN 40(H) 7 - 25 mg/dL 04/26/2025 3:42 AM [facility] ([facility]) Creatinine 2.83(H) 0.70 - 1.30 mg/dL 04/26/2025 3:42 AM [facility] ([facility]) Glucose 128(H) 70 - 100 mg/dL 04/26/2025 3:42 AM [facility] ([facility]) Calcium 7.2(L) 8.6 - 10.3 mg/dL 04/26/2025 3:42 AM [facility] ([facility]) Anion Gap 14 7 - 20 mmol/L 04/26/2025 3:42 AM [facility] ([facility]) eGFR 23.4(L) >60.0 mL/min/1. 73m*2 04/26/2025 3:42 AM [facility] ([facility]) Comment:[facility] s estimated glomerular filtration rate (eGFR) [...] individuals. BUN/Creatinine Ratio 14.1 03/2025 3:42 AM [facility] ([facility]) Blood Venous blood specimen / Unknown Arterial Line / Unknown 04/26/2025 3:05 AM EDT 04/26/2025 3:17 AM EDT us Pepe Anthony MD LAB BLOOD ORDERABLES Final Resu lt [facility]) [address] [place] [address] * Phosphorus (04/26/2025 3:05 AM EDT) Phosphorus 2.6 2.5 - 5.0 mg/dL 04/26/2025 3:42 AM EDT [facility] ([facility]) Blood Venous blood specimen / Unknown Arterial Line / Unknown 04/26/2025 3:05 AM EDT 04/26/2025 3:17 AM EDT us Pepe Anthony MD LAB BLOOD ORDERABLES Final Resu lt Performing Organization Address City/[facility]/ZIP Co de Phone Number [facility] ([facility]) [address] [place] [address] * (ABNORMAL) CBC (04/26/2025 3:05 AM EDT) Auto WBC 6.84 4.00 - 10.60 10*3/uL 04/26/2025 3:37 AM EDT [facility] ([facility]) RBC 3.17(L) 4.20 - 5.70 10*6/uL 04/26/2025 3:37 AM EDT [facility] ([facility]) Hemoglobin 10.2(L) 13.0 - 17.0 g/dL 04/26/2025 3:37 AM EDT [facility] ([facility]) Hematocrit 29.3(L) 39.0 - 50.0 % 04/26/2025 3:37 AM EDT [facility] ([facility]) MCV 92.4 82.0 - 98.0 fL 04/26/2025 3:37 AM EDT [facility] ([facility]) MCH 32.2 27.0 - 33.0 pg 04/26/2025 3:37 AM EDT [facility] ([facility]) MCHC 34.8 32.0 - 35.0 g/dL 04/26/2025 3:37 AM EDT [facility] ([facility]) RDW 14.0 11.5 - 15.0 % 04/26/2025 3:37 AM EDT [facility] ([facility]) Platelets 233 150 - 400 10*3/uL 04/26/2025 3:37 AM EDT [facility] ([facility]) Blood Venous blood specimen / Unknown Arterial Line / Unknown 04/26/2025 3:05 AM EDT 04/26/2025 3:17 AM EDT us Pepe Anthony MD LAB BLOOD ORDERABLES Final Resu lt [facility]) [address] [place] [address] * Co-oximetry (04/26/2025 2:39 AM EDT) [facility] Signature Oxyhemoglobin 58.7 % 04/26/2025 2:41 AM EDT [facility] RESPIRATORY THERAPY Total Hemoglobin 10.9 g/dL 04/26/20 2:41 AM EDT [facility] RESPIRATORY THERAPY O2 Sat 59.6 % 04/26/2025 2:41 AM EDT [facility] RESPIRATORY THERAPY Blood Mixed venous blood specimen / Unknown Arterial Line / Unknown 04/26/2025 2:39 AM EDT 04/26/2025 2:39 AM EDT us Pepe Anthony MD LAB BLOOD ORDERABLES Final Resu lt [facility] RESPIRATORY THERAPY [address] [place] [address], [place] * XR chest 1 view (04/25/2025 4:17 PM EDT) Anatomical Region Laterality Modality Chest Computed Radiogr aphy 04/25/2025 4:26 PM EDT Impressions 04/25/2025 4:31 PM EDT Tip of the Boston-Shannan catheter appears to be in the right main pulmonary artery. No new acute pulmonary abnormalities displayed. Electronically signed: Ralph Mcgovern. Narrative 04/25/2025 4:31 PM EDT History: Assessing Boston-Shannan catheter Exam/Technique: Portable upright AP chest Comparison: Chest CTA from 04/23/2025. Findings: The tip of the right jugular Boston-Shannan catheter appears to overlap when appropriate EKG leads, apparently in the proximal portion of the right main pulmonary artery. No interval change is demonstrated with no new acute pulmonary or pleural abnormalities displayed on this single. Mild cardiomegaly appears unchanged. Cardiac electrical device unchanged. Procedure Note Ralph Mcgovern MD - 04/25/2025 History: Assessing Boston-Sahnnan catheter Exam/Technique: Portable upright AP chest Comparison: Chest CTA from 04/23/2025. Findings: The tip of the right jugular Boston-Shannan catheter appears tooverlap when appropriate EKG leads, apparently in the proximal portion of theright main pulmonary artery. No interval change is demonstrated with no new acute pulmonary orpleural abnormalities displayed on this single. Mild cardiomegaly appears unchanged. Cardiac electrical deviceunchanged. IMPRESSION: Tip of the [place]-Shannan catheter appears to be in the right main pulmonary artery. No new acute pulmonary abnormalities displayed. Electronically signed: Ralph Mcgovern. us Pepe Raj KLEIN IMG XR PROCEDURES Final Result * (ABNORMAL) Basic metabolic panel (04/25/2025 1:12 PM EDT) Sodium 132(L) 136 - 145 mmol/L 04/25/2025 1:41 PM EDT [facility] ([facility]) Potassium 3.4(L) 3.5 - 5.1 mmol/L 04/25/2025 1:41 PM EDT [facility] ([facility]) Chloride 99 98 - 107 mmol/L 04/25/2025 1:41 PM EDT [facility] ([facility]) CO2 24 21 - 31 mmol/L 04/25/2025 1:41 PM EDT [facility] ([facility]) BUN 40(H) 7 - 25 mg/dL 04/25/2025 1:41 PM EDT [facility] ([facility]) Creatinine 2.96(H) 0.70 - 1.30 mg/dL 04/25/2025 1:41 PM EDT [facility] ([facility]) Glucose 130(H) 70 - 100 mg/dL 04/25/2025 1:41 PM EDT [facility] ([facility]) Calcium 7.1(L) 8.6 - 10.3 mg/dL 04/25/2025 1:41 PM EDT [facility] ([facility]) Anion Gap 12 7 - 20 mmol/L 04/25/2025 1:41 PM EDT [facility] ([facility]) eGFR 22.2(L) >60.0 mL/min/1. 73m*2 04/25/2025 1:41 PM EDT [facility] ([facility]) Comment:[facility] s estimated glomerular filtration rate (eGFR) [...] individuals. BUN/Creatinine Ratio 13.5 02/2025 1:41 PM EDT [facility] ([facility]) Blood Venous blood specimen / Unknown Arterial Line / Unknown 04/25/2025 1:12 PM EDT 04/25/2025 1:18 PM EDT us Pepe Anthony MD LAB BLOOD ORDERABLES Final Resu lt [facility] ([facility]) [address] [place] [address] * Phosphorus (04/25/2025 3:22 AM EDT) Phosphorus 3.5 2.5 - 5.0 mg/dL 04/25/2025 4:00 AM EDT [facility] ([facility]) Blood Venous blood specimen / Unknown Arterial Line / Unknown 04/25/2025 3:22 AM EDT 04/25/2025 3:33 AM EDT us Pepe Anthony MD LAB BLOOD ORDERABLES Final Resu lt Performing Organization Address City/[facility]/ZIP Co de Phone Number [facility]) [address] [place] [address] * Magnesium (04/25/2025 3:22 AM EDT) [facility] Magnesium 1.9 1.9 - 2.7 mg/dL 04/25/2025 4:00 AM EDT [facility] ([facility]) Blood Venous blood specimen / Unknown Arterial Line / Unknown 04/25/2025 3:22 AM EDT 04/25/2025 3:33 AM EDT us Benedict Pascual MD LAB BLOOD ORDERABLES Final Resul t Performing Organization Address [facility] de Phone Number [facility]) [address] [place] [phone] [phone] * (ABNORMAL) CBC (04/25/2025 3:22 AM EDT) [facility] Auto WBC 6.72 4.00 - 10.60 10*3/uL 04/25/2025 3:49 AM EDT [facility]) RBC 3.24(L) 4.20 - 5.70 10*6/uL 04/25/2025 3:49 AM EDT [facility] ([facility]) Hemoglobin 10.4(L) 13.0 - 17.0 g/dL 04/25/2025 3:49 AM EDT [facility]) Hematocrit 30.2(L) 39.0 - 50.0 % 04/25/2025 3:49 AM EDT [facility]) MCV 93.2 82.0 - 98.0 fL 04/25/2025 3:49 AM EDT [facility] ([facility]) MCH 32.1 27.0 - 33.0 pg 04/25/2025 3:49 AM EDT [facility] ([facility]) MCHC 34.4 32.0 - 35.0 g/dL 04/25/2025 3:49 AM EDT [facility] ([facility]) RDW 13.9 11.5 - 15.0 % 04/25/2025 3:49 AM EDT [facility] ([facility]) Platelets 205 150 - 400 10*3/uL 04/25/2025 3:49 AM EDT [facility] ([facility]) Blood Venous blood specimen / Unknown Arterial Line / Unknown 04/25/2025 3:22 AM EDT 04/25/2025 3:33 AM EDT Benedict Pascual MD LAB BLOOD ORDERABLES Final Resul t [facility] ([facility]) [address] [place] [address] * (ABNORMAL) Basic metabolic panel (04/25/2025 3:22 AM EDT) Sodium 131(L) 136 - 145 mmol/L 04/25/2025 4:00 AM EDT [facility] ([facility]) Potassium 3.7 3.5 - 5.1 mmol/L 04/25/2025 4:00 AM EDT [facility] ([facility]) Chloride 99 98 - 107 mmol/L 04/25/2025 4:00 AM EDT [facility] ([facility]) CO2 24 21 - 31 mmol/L 04/25/2025 4:00 AM EDT [facility] ([facility]) BUN 33(H) 7 - 25 mg/dL 04/25/2025 4:00 AM EDT [facility] ([facility]) Creatinine 2.57(H) 0.70 - 1.30 mg/dL 04/25/2025 4:00 AM EDT [facility] ([facility]) Glucose 125(H) 70 - 100 mg/dL 04/25/2025 4:00 AM EDT [facility] ([facility]) Calcium 7.5(L) 8.6 - 10.3 mg/dL 04/25/2025 4:00 AM EDT [facility] ([facility]) Anion Gap 12 7 - 20 mmol/L 04/25/2025 4:00 AM EDT [facility] ([facility]) eGFR 26.2(L) >60.0 mL/min/1. 73m*2 04/25/2025 4:00 AM EDT [facility] ([facility]) Comment:[facility] s estimated glomerular filtration rate (eGFR) [...] BUN/Creatinine Ratio 12.8 02/2025 4:00 AM EDT [facility] ([facility]) Blood Venous blood specimen / Unknown Arterial Line / Unknown 04/25/2025 3:22 AM EDT 04/25/2025 3:33 AM EDT us Benedict Pascual MD LAB BLOOD ORDERABLES Final Resul t [facility] ([facility]) [address] [place] [address] * RIGHT HEART CATH, SWAN (FLOW DIRECTED [...] Performed: Right heart catheterization. Placement of a DIRECTOR OF DIGITAL MARKETING [place]-Shannan catheter for hemodynamic monitoring. Access into the right internal jugular vein under ultrasound guidance. Methods: Procedure was explained to the patient with risks and benefits; he signed informed consent. he was brought to the microbiology lab analyst in a fasting state. The right neck area was prepped and draped in usual fashion. Micropuncture technique was used for access under ultrasound guidance into the right internal jugular vein. A 6-American x 11 cm sheath was placed. A 6-American Carrasquillo catheter was used for right heart catheterization and measurement of pressures and calculation of cardiac output using the estimated [place] method. Carrasquillo catheter was removed. Over a wire to the access sheath was upsized to a 9 American introducer sheath. A DIRECTOR OF DIGITAL MARKETING Boston-Shannan catheter was advanced with the aid of a V18 wire and the distal end of the catheter was advanced to the distal segment of the right pulmonary artery. The Boston-Shannan catheter was secured in place. he tolerated [...] with biventricular failure. Successful placement of a DIRECTOR OF D[employer] MARKETING [place]-Shannan catheter to guide management of heart failure. Plan: Patient will be started on intravenous inotropic therapy. Further recommendations per inpatient Cardiology service. Hay William MD Study Details Other hypotension [I95.89], Right ventricular dysfunction [I51.9] Elliott Nettles [facility] CV CARDIAC CATH PROCEDURES Final Result * (ABNORMAL) Lipid panel (04/24/2025 4:07 AM EDT) Triglycerides 75 <150 mg/dL 04/24/2025 2:39 PM EDT [facility] ([facility]) Comment: TRIGLYCERIDE REFERENCE RANGE: 20 YEARS AND OLDER CARDIOVASCULAR RISK LESS THAN 150 mg/dL LOW RISK 150 TO 199 mg/dL BORDERLINE RISK 200 mg/dL AND GREATER HIGH RISK Cholesterol 98(L) 120 - 200 mg/dL 04/24/2025 2:39 PM EDT [facility] ([facility]) LDL Calculated 54 0 - 160 mg/dL 04/24/2025 2:39 PM EDT [facility] ([facility]) HDL 29 23 - 92 mg/dL 04/24/2025 2:39 PM EDT [facility] ([facility]) Non HDL Cholesterol 69 04/24/2025 2:39 PM EDT [facility] ([facility]) Total VLDL-C 15 0 - 40 mg/dL 04/24/2025 2:39 PM EDT [facility] ([facility]) Cholesterol/HDL Ratio 3.4 mg/dL 04/24/2025 2:39 PM EDT [facility] ([facility]) Blood Venous blood specimen / Unknown Venipuncture / Unknown 04/24/2025 4:07 AM EDT 04/24/2025 4:17 AM EDT us Bebo Dominguez MD LAB BLOOD ORDERABLES Final Resul t [facility]) [address] [place] [address] * Magnesium (04/24/2025 4:07 AM EDT) Magnesium 1.9 1.9 - 2.7 mg/dL 04/24/2025 5:29 AM EDT [facility] ([facility]) Blood Venous blood specimen / Unknown Venipuncture / Unknown 04/24/2025 4:07 AM EDT 04/24/2025 4:17 AM EDT us Benedict Pascual MD LAB BLOOD ORDERABLES Final Resul t Performing Organization Address City/[facility]/ZIP Co de Phone Number [facility] ([facility]) [address] [place] [address] * (ABNORMAL) CBC (04/24/2025 4:07 AM EDT) Auto WBC 5.70 4.00 - 10.60 10*3/uL 04/24/2025 4:37 AM EDT [facility] ([facility]) RBC 3.52(L) 4.20 - 5.70 10*6/uL 04/24/2025 4:37 AM EDT [facility] ([facility]) Hemoglobin 11.2(L) 13.0 - 17.0 g/dL 04/24/2025 4:37 AM EDT [facility] ([facility]) Hematocrit 33.1(L) 39.0 - 50.0 % 04/24/2025 4:37 AM EDT [facility] ([facility]) MCV 94.0 82.0 - 98.0 fL 04/24/2025 4:37 AM EDT [facility] ([facility]) MCH 31.8 27.0 - 33.0 pg 04/24/2025 4:37 AM EDT [facility] ([facility]) MCHC 33.8 32.0 - 35.0 g/dL 04/24/2025 4:37 AM EDT [facility] ([facility]) RDW 13.9 11.5 - 15.0 % 04/24/2025 4:37 AM EDT [facility] ([facility]) Platelets 209 150 - 400 10*3/uL 04/24/2025 4:37 AM EDT [facility] ([facility]) Blood Venous blood specimen / Unknown Venipuncture / Unknown 04/24/2025 4:07 AM EDT 04/24/2025 4:20 AM EDT Benedict Pascual MD LAB BLOOD ORDERABLES Final Resul t [facility] ([facility]) [address] [place] [address] * (ABNORMAL) Basic metabolic panel (04/24/2025 4:07 AM EDT) Sodium 131(L) 136 - 145 mmol/L 04/24/2025 5:29 AM [facility] ([facility]) Potassium 3.9 3.5 - 5.1 mmol/L 04/24/2025 5:29 AM [facility] ([facility]) Chloride 100 98 - 107 mmol/L 04/24/2025 5:29 AM [facility] ([facility]) CO2 19(L) 21 - 31 mmol/L 04/24/2025 5:29 AM [facility] ([facility]) BUN 24 7 - 25 mg/dL 04/24/2025 5:29 AM [facility] ([facility]) Creatinine 1.45(H) 0.70 - 1.30 mg/dL 04/24/2025 5:29 AM [facility] ([facility]) Glucose 122(H) 70 - 100 mg/dL 04/24/2025 5:29 AM [facility] ([facility]) Calcium 8.0(L) 8.6 - 10.3 mg/dL 04/24/2025 5:29 AM [facility] ([facility]) Anion Gap 16 7 - 20 mmol/L 04/24/2025 5:29 AM [facility] ([facility]) eGFR 52.2(L) >60.0 mL/min/1. 73m*2 04/24/2025 5:29 AM [facility] ([facility]) Comment:[facility] s estimated glomerular filtration rate (eGFR) [...] individuals. BUN/Creatinine Ratio 16.6 01/2025 5:29 AM [facility] ([facility]) Blood Venous blood specimen / Unknown Venipuncture / Unknown 04/24/2025 4:07 AM EDT 04/24/2025 4:17 AM EDT us Benedict Pascual MD LAB BLOOD ORDERABLES Final Resul t [facility] ([facility]) [address] [place] [address] * CTA Chest W IV Contrast (04/23/2025 [...] IVC suggestive ofright heart dysfunction. Approved by:Benedict Gadon04/23/2025 5:40 PM. I, Howie Velasquez,have reviewed the image(s) and agree with the findings inthis report. Electronically signed: Howie Velasquez. us Benedict Pascual MD IMG CT PROCEDURES Final Result * LIMITED ECHOCARDIOGRAM (TTE) W/ LTD DOPPLER AND COLOR FLOW (04/23/2025 7:56 AM EDT) Anatomical Region Laterality Modality Other 04/23/2025 7:26 AM EDT Narrative 04/23/2025 9:27 AM EDT 1 1 [facility] Heart Station [address] [place] [address] [phone] (fax) Echocardiogram-[facility] Name: KRISTY DOHERTY Study Date: 04/23/2025 07:26 AM B/P: 90 mmHg/74 mmHg HR: 111 bpm Date of : 1955 Location: [facility] Height: 68 in. Age: 69 year(s) Patient [...] minimal pericardial effusion. Procedure Staff Reading Group: [facility] Referring Physician: RUDY KING [employer] Supervisor: June Brumfield RDCS, RVT, RN, BSN Ordering Physician: FANI DENNEY Wall Motion Scores -1 - hyperkinesia, 0 - not evaluated, 1 - normal, 2 - hypokinesia, 3 - akinesia, 4 - dyskinesia Procedure Note Mitesh Vernon MD - 04/23/2025 1 1 [facility] Heart [facility] [address] [place] [address] [phone] (fax) Echocardiogram-[facility] Name: KRISTY DOHERTY Study Date: 04/23/2025 07:26 AM B/P: 90 mmHg/74 mmHg HR: 111 bpm Date of : 1955 Location: [facility] Height: 68 in. Age: 69 year(s) Patient [...] minimal pericardial effusion. Procedure Staff Reading Group: [facility] Referring Physician: RUDY KING [employer] Supervisor: June Brumfield, RDCS, RVT, RN, BSN Ordering Physician: FANI DENNEY Wall Motion Scores -1 - hyperkinesia, 0 - not evaluated, 1 - normal, 2 - hypokinesia, 3 - akinesia, 4 - dyskinesia Fani Denney MD CV ECHO PROCEDURES Final Result * (ABNORMAL) Magnesium (04/23/2025 5:02 AM EDT) [facility] Magnesium 1.6(L) 1.9 - 2.7 mg/dL 04/23/2025 5:58 AM EDT [facility] ([facility]) Blood Venous blood specimen / Unknown Venipuncture / Unknown 04/23/2025 5:02 AM EDT 04/23/2025 5:22 AM EDT Osito Kline MD LAB BLOOD ORDERABLES Final Resul t [facility] ([facility]) [address] [place] [address] * (ABNORMAL) CBC auto differential (04/23/2025 5:02 AM EDT) [facility] Auto WBC 5.60 4.00 - 10.60 10*3/uL 04/23/2025 5:32 AM EDT [facility] ([facility]) RBC 3.73(L) 4.20 - 5.70 10*6/uL 04/23/2025 5:32 AM [facility] ([facility]) Hemoglobin 11.9(L) 13.0 - 17.0 g/dL 04/23/2025 5:32 AM T [facility] [facility] ([facility]) Hematocrit 35.0(L) 39.0 - 50.0 % 04/23/2025 5:32 AM [facility] ([facility]) MCV 93.8 82.0 - 98.0 fL 04/23/2025 5:32 AM T [facility] ([facility]) MCH 31.9 27.0 - 33.0 pg 04/23/2025 5:32 AM [facility] ([facility]) MCHC 34.0 32.0 - 35.0 g/dL 04/23/2025 5:32 AM [facility] ([facility]) RDW 13.9 11.5 - 15.0 % 04/23/2025 5:32 AM [facility] ([facility]) Neutrophils % 57.1 40.0 - 72.0 % 04/23/2025 5:32 AM [facility] ([facility]) Lymphocytes % 22.5 20.0 - 45.0 % 04/23/2025 5:32 AM [facility] ([facility]) Monocytes % 17.7(H) 5.0 - 12.0 % 04/23/2025 5:32 AM [facility] ([facility]) Eosinophils % 1.8 0.0 - 6.0 % 04/23/2025 5:32 AM [facility] ([facility]) Basophils % 0.5 0.0 - 1.0 % 04/23/2025 5:32 AM [facility] ([facility]) Neutrophils Absolute 3.20 1.60 - 7.60 10*3/uL 04/23/2025 5:32 AM T [facility] ([facility]) Lymphocytes Absolute 1.26 1.20 - 4.00 10*3/uL 04/23/2025 5:32 AM [facility] ([facility]) Monocytes Absolute 0.99 0.10 - 1.00 10*3/uL 04/23/2025 5:32 AM T [facility] ([facility]) Eosinophils Absolute 0.10 0.00 - 0.50 10*3/uL 04/23/2025 5:32 AM EDT [facility] ([facility]) Basophils Absolute 0.03 0.00 - 0.20 10*3/uL 04/23/2025 5:32 AM EDT [facility] ([facility]) Platelets 223 150 - 400 10*3/uL 04/23/2025 5:32 AM EDT [facility] ([facility]) nRBC % 0.0 0 % 04/23/2025 5:32 AM EDT [facility] ([facility]) Immature Granulocytes % 0.4 0.0 - 1.0 % 04/23/2025 5:32 AM EDT [facility] ([facility]) Immature Granulocytes Absolute 0.02 0.00 - 0.20 10*3/uL 04/23/2025 5:32 AM EDT [facility] ([facility]) Blood Venous blood specimen / Unknown Venipuncture / Unknown 04/23/2025 5:02 AM EDT 04/23/2025 5:22 AM EDT us Yanely Archer [facility] BLOOD ORDERABLES Final R esult [facility]) [address] [id number] * (ABNORMAL) Comprehensive metabolic panel (04/23/2025 5:02 AM EDT) Sodium 134(L) 136 - 145 mmol/L 04/23/2025 5:58 AM EDT [facility] ([facility]) Potassium 4.1 3.5 - 5.1 mmol/L 04/23/2025 5:58 AM EDT [facility] ([facility]) Chloride 99 98 - 107 mmol/L 04/23/2025 5:58 AM EDT [facility] ([facility]) CO2 26 21 - 31 mmol/L 04/23/2025 5:58 AM EDT [facility] ([facility]) Anion Gap 13 7 - 20 mmol/L 04/23/2025 5:58 AM EDT [facility] ([facility]) BUN 18 7 - 25 mg/dL 04/23/2025 5:58 AM [facility] ([facility]) Creatinine 1.11 0.70 - 1.30 mg/dL 04/23/2025 5:58 AM [facility] ([facility]) BUN/Creatinine Ratio 16.2 12/2024 5:58 AM [facility] ([facility]) Glucose 125(H) 70 - 100 mg/dL 04/23/2025 5:58 AM [facility] ([facility]) Calcium 8.4(L) 8.6 - 10.3 mg/dL 04/23/2025 5:58 AM [facility] ([facility]) AST 34 13 - 39 U/L 04/23/2025 5:58 AM [facility] ([facility]) ALT (SGPT) 18 7 - 52 U/L 04/23/2025 5:58 AM [facility] ([facility]) Alkaline Phosphatase 48 34 - 104 U/L 04/23/2025 5:58 AM [facility] ([facility]) Total Protein 6.8 6.0 - 8.3 g/dL 04/23/2025 5:58 AM [facility] ([facility]) Albumin 3.7 3.5 - 5.7 g/dL 04/23/2025 5:58 AM [facility] ([facility]) Total Bilirubin 0.5 0.3 - 1.0 mg/dL 04/23/2025 5:58 AM [facility] ([facility]) eGFR 71.9 >60.0 mL/min/1. 73m*2 04/23/2025 5:58 AM [facility] ([facility]) Comment:[facility] s estimated glomerular filtration rate (eGFR) [...] AM EDT 04/23/2025 5:22 AM EDT Yanely Archer [facility] BLOOD ORDERABLES Final R esult Performing Organization Address City/[facility] Co de Phone Number [facility] ([facility]) [address] [place] [address] * (ABNORMAL) C-reactive protein (04/23/2025 5:02 AM EDT) CRP 39.4(H) <=5.0 mg/L 04/23/2025 8:57 AM EDT [facility] ([facility]) Comment:Testing performed us ing a new methodology, turbidimetry. Normal ranges have been updated. Old normal range was <8 mg/L. Blood Venous blood specimen / Unknown Venipuncture / Unknown 04/23/2025 5:02 AM EDT 04/23/2025 5:22 AM EDT Yanely Archer [facility] BLOOD ORDERABLES Final R esult Performing Organization Address [facility] Co de Phone Number [facility] ([facility]) [address] [place] [phone] * CT cervical spine wo IV contrast [...] traumatic malalignment. Approved by:Phill Morgann1 4:14 AM. I, Ayden Corbin MD,have reviewed [...] FINDINGS: No acute, territorial region of diminished ochoa-white differentiation. No evidence of acute intracranial hemorrhage. [...] FINDINGS: No acute, territorial region of diminished ochoa-white differentiation.No evidence of acute intracranial hemorrhage. No [...] MUSE Atrial Rate 120 BPM GE MUSE HI Interval 198 ms GE MUSE QRS DURATION 102 ms GE MUSE QT Interval 294 ms GE MUSE QTC CALCULATION(BAZE TT) 415 ms GE MUSE P Jarreau 64 degrees GE MUSE R-Jarreau 38 degrees GE MUSE T Wave Jarreau 116 degrees GE MUSE 04/23/2025 3:16 AM [...] Osito Kline MD ECG ORDERABLES Final Result GE MUSE * LIMITED ECHOCARDIOGRAM (TTE) W/ LTD DOPPLER AND COLOR FLOW (04/20/2025 1:51 PM EDT) Anatomical Region Laterality Modality Other 04/20/2025 1:28 PM EDT Narrative 04/20/2025 5:38 PM EDT 1 1 [facility] Heart Station [address] [place] [address] [phone] (fax) Echocardiogram-[facility] Name: KRISTY DOHERTY Study Date: 04/20/2025 01:28 PM B/P: 83 mmHg/58 mmHg HR: 96 bpm Date of : 1955 Location: [facility] Height: 68 in. Age: 69 year(s) Patient Room: [facility] Weight: 179 lb. Gender: Male Patient Status: [...] No pericardial effusion. Procedure Staff Reading Group: [facility] Referring Physician: RUDY KING [employer] Supervisor: June Brumfield, DEAN, RVT, RN, BSN Ordering Physician: VENU SAMANIEGO Wall Motion Scores -1 - hyperkinesia, 0 - not evaluated, 1 - normal, 2 - hypokinesia, 3 - akinesia, 4 - dyskinesia Procedure Note Mitesh Vernon MD - 04/20/2025 1 1 [facility] Heart Station [address] [place] [address] [phone] (fax) Echocardiogram-[facility] Name: KRISTY DOHERTY Study Date: 04/20/2025 01:28 PM B/P: 83 mmHg/58 mmHg HR: 96 bpm Date of : 1955 Location: [facility] Height: 68 in. Age: 69 year(s) Patient [...] No pericardial effusion. Procedure Staff Reading Group: [facility] Referring Physician: RUDY KING [employer] Supervisor: June Brumfield, DEAN, RVT, RN, BSN Ordering Physician: VENU SAMANIEGO Wall Motion Scores -1 - hyperkinesia, 0 - not evaluated, 1 - normal, 2 - hypokinesia, 3 - akinesia, 4 - dyskinesia Venu Samaniego MD CV ECHO PROCEDURES Final R esult * Osmolality (04/20/2025 12:25 PM EDT) Osmolality 276 275 - 295 mOsm/kg 04/20/2025 7:48 PM EDT [facility] Comment:Test Performed by [facility] [address] [place] [id number] - Released 04/20/2025 19:48 Blood Venous blood specimen / Unknown Venipuncture / Unknown 04/20/2025 12:25 PM EDT 04/20/2025 12:56 PM EDT Benedict Pascual MD LAB BLOOD ORDERABLES Final Resul t [facility] [address] [place] [address] * Blood culture, peripheral #2 (04/20/2025 10:09 AM EDT) Blood Culture No growth at 5 days FLORA 04/25/2025 12:01 PM EDT [facility] ([facility]) Blood Venous blood specimen / Unknown Venipuncture / Unknown 04/20/2025 10:09 AM EDT 04/20/2025 12:00 PM EDT us Benedict Pascual MD LAB MICROBIOLOGY - GENERAL ORDER JAY Final Result [facility]) [address] [place] [address] * Blood culture, peripheral #1 (04/20/2025 10:09 AM EDT) Blood Culture No growth at 5 days FLORA 04/25/2025 12:[address] [facility] ([facility]) Blood Venous blood specimen / Unknown Venipuncture / Unknown 04/20/2025 10:09 AM EDT 04/20/2025 12:00 PM EDT us Benedict Pascual MD LAB MICROBIOLOGY - GENERAL ORDER JAY Final Result Performing Organization Address City/[facility]/ZIP Co de Phone Number [facility]) [address] [place] [address] * Cortisol (04/20/2025 5:15 AM EDT) Cortisol 11.2 6 - 23 ug/dL 04/20/2025 12:47 PM EDT [facility]) Blood Venous blood specimen / Unknown Venipuncture / Unknown 04/20/2025 5:15 AM EDT 04/20/2025 5:22 AM EDT us Benedict Pascual MD LAB BLOOD ORDERABLES Final Resul t [facility]) [address] [place] [address] * (ABNORMAL) CBC (04/20/2025 5:15 AM EDT) Auto WBC 7.50 4.00 - 10.60 10*3/uL 04/20/2025 5:32 AM EDT [facility] ([facility]) RBC 3.75(L) 4.20 - 5.70 10*6/uL 04/20/2025 5:32 AM EDT [facility] ([facility]) Hemoglobin 12.1(L) 13.0 - 17.0 g/dL 04/20/2025 5:32 AM EDT [facility] ([facility]) Hematocrit 34.0(L) 39.0 - 50.0 % 04/20/2025 5:32 AM EDT [facility] ([facility]) MCV 90.7 82.0 - 98.0 fL 04/20/2025 5:32 AM EDT [facility] ([facility]) MCH 32.3 27.0 - 33.0 pg 04/20/2025 5:32 AM EDT [facility] ([facility]) MCHC 35.6(H) 32.0 - 35.0 g/dL 04/20/2025 5:32 AM EDT [facility] ([facility]) RDW 13.9 11.5 - 15.0 % 04/20/2025 5:32 AM EDT [facility] ([facility]) Platelets 160 150 - 400 10*3/uL 04/20/2025 5:32 AM EDT [facility] ([facility]) Blood Venous blood specimen / Unknown Venipuncture / Unknown 04/20/2025 5:15 AM EDT 04/20/2025 5:22 AM EDT us Venu Samaniego MD LAB BLOOD ORDERABLES Final Result [facility] ([facility]) [address] [place], [place] [id number] * (ABNORMAL) Basic metabolic panel (04/20/2025 5:15 AM EDT) Sodium 127(L) 136 - 145 mmol/L 04/20/2025 6:42 AM T [facility] ([facility]) Potassium 3.9 3.5 - 5.1 mmol/L 04/20/2025 6:42 AM T [facility] ([facility]) Chloride 93(L) 98 - 107 mmol/L 04/20/2025 6:42 AM T [facility] ([facility]) CO2 26 21 - 31 mmol/L 04/20/2025 6:42 AM T [facility] ([facility]) BUN 16 7 - 25 mg/dL 04/20/2025 6:42 AM T [facility] ([facility]) Creatinine 0.94 0.70 - 1.30 mg/dL 04/20/2025 6:42 AM [facility] ([facility]) Glucose 127(H) 70 - 100 mg/dL 04/20/2025 6:42 AM [facility] ([facility]) Calcium 8.8 8.6 - 10.3 mg/dL 04/20/2025 6:42 AM [facility] ([facility]) Anion Gap 12 7 - 20 mmol/L 04/20/2025 6:42 AM [facility] ([facility]) eGFR 87.8 >60.0 mL/min/1. 73m*2 04/20/2025 6:42 AM [facility] ([facility]) Comment:[facility] s estimated glomerular filtration rate (eGFR) [...] individuals. BUN/Creatinine Ratio 17.0 09/2024 6:42 AM [facility] ([facility]) Blood Venous blood specimen / Unknown Venipuncture / Unknown 04/20/2025 5:15 AM EDT 04/20/2025 5:22 AM EDT us Venu Samaniego MD LAB BLOOD ORDERABLES Final Result [facility]) [address] [place] [address] * Sodium, urine, random (04/19/2025 8:28 PM EDT) Sodium, Ur 59 mmol/L 04/19/2025 8:54 PM EDT [facility] ([facility]) Urine Urine specimen obtained by clean catch procedure / Unknown Non-blood Collection / Unknown 04/19/2025 8:28 PM EDT 04/19/2025 8:39 PM EDT Venu Samaniego MD LAB URINE ORDERABLES Final Result Performing Organization Address City/[facility] Co de Phone Number [facility]) [address] [place] [address] * ECG 12 lead (04/19/2025 6:35 PM EDT) Ventricular Rate 112 BPM GE MUSE Atrial Rate 112 BPM GE MUSE HI Interval 186 ms GE MUSE QRS DURATION 114 ms GE MUSE QT Interval 342 ms GE MUSE QTC CALCULATION(BAZE TT) 466 ms GE MUSE P Jarreau 50 degrees GE MUSE R-Jarreau 19 degrees GE MUSE T Wave Jarreau 96 degrees GE MUSE 04/19/2025 6:24 PM [...] Bobo Raymond (80) on 04/20/2025 7:43:00 AM Venu Samaniego MD ECG ORDERABLES Final Resu lt GE MUSE * (ABNORMAL) Osmolality (04/19/2025 6:26 PM EDT) Osmolality 268(L) 275 - 295 mOsm/kg 04/20/2025 3:14 PM EDT [facility] Comment:[facility] [address] [place] [id number] - Pqakmpte 04/20/2025 15:14 Blood Venous blood specimen / Unknown Venipuncture / Unknown 04/19/2025 6:26 PM EDT 04/19/2025 6:36 PM EDT Venu Samaniego MD LAB BLOOD ORDERABLES Final Result Performing Organization Address City/[facility]/ZIP Co de Phone Number [facility] [address] [place] [address] * (ABNORMAL) B-type natriuretic peptide (04/19/2025 6:25 PM EDT) BNP 254(H) 0 - 100 pg/mL 04/19/2025 7:07 PM EDT [facility] ([facility]) Blood Venous blood specimen / Unknown Venipuncture / Unknown 04/19/2025 6:25 PM EDT 04/19/2025 6:36 PM EDT Venu Samaniego MD LAB BLOOD ORDERABLES Final Result [facility] ([facility]) [address] [place] [address] * LIMITED ECHO (TTE) (04/19/2025 3:37 PM EDT) Anatomical Region Laterality Modality Other 04/19/2025 2:13 PM EDT Narrative 04/19/2025 4:30 PM EDT 1 1 [facility] Heart Station [address] [facility] [place] [address] (fax) Echocardiogram-[facility] Name: KRISTY DOHERTY Study Date: 04/19/2025 02:13 PM B/P: / HR: Date of : 1955 Location: [facility] Height: 68 in. Age: 69 year(s) Patient Room: 3183 Weight: 182 lb. Gender: Male Patient Status: InPt BSA: 1.96 m2 Indication: pericardialeffusion, h/o 35mm Watchman FLX Examination: Limited Echo Image Quality: Fair Findings Pericardium: Moderate pericardial effusion baseline. Post pericardiocentesis there is minimal pericardial effusion. Procedure Staff Reading Group: [facility] Referring Physician: RUDY KING [employer] Supervisor: SAMI Starr, RDCS Ordering Physician: VENU SAMANIEGO Procedure Note Fani Denney MD - 04/19/2025 1 1 [facility] [address] [facility] [place] [place] [address] (fax) Echocardiogram-[facility] Name: KRISTY DOHERTY Study Date: 04/19/2025 02:13 PM B/P: / HR: Date of : 1955 Location: [facility] Height: 68 in. Age: 69 year(s) Patient Room: 3183 Weight: 182 lb. Gender: Male Patient Status: InPt BSA: 1.96 m2 Indication: pericardialeffusion, h/o 35mm Watchman FLX Examination: Limited Echo Image Quality: Fair Findings Pericardium: Moderate pericardial effusion baseline. Post pericardiocentesis there is minimal pericardial effusion. Procedure Staff Reading Group: [facility] Referring Physician: RUDY KING [employer] Supervisor: SAMI Starr, RDCS Ordering Physician: VENU SAMANIEGO us Venu Samaniego MD CV ECHO PROCEDURES Final R esult * Pathology Review (04/19/2025 3:23 PM EDT) Pathology Review Reviewed. Electronica lly signed by Kristy Dsouza MD on 04/20/25 at 9:17 AM. 04/20/2025 9:17 AM EDT [facility] ([facility]) Fluid (Pericardial Fluid) Non-blood Collection / Unknown 04/19/2025 3:23 PM EDT 04/19/2025 3:33 PM EDT us Venu Samaniego MD LAB BLOOD ORDERABLES Final Result [facility] ([facility]) [address] [place] [address] * Body fluid cell differential (04/19/2025 3:23 PM EDT) Total Cells Counted for Differential 100 04/20/2025 9:17 AM EDT [facility] ([facility]) Neutrophils Manual, Fluid 96 04/20/2025 9:17 AM EDT [facility] ([facility]) Lymphocytes Manual, Fluid 1 04/20/2025 9:17 AM EDT [facility] ([facility]) [place]/Macrophage Manual, Fluid 04/20/2025 9:17 AM EDT [facility] ([facility]) Eosinophils Manual, Fluid 04/20/2025 9:17 AM EDT [facility] ([facility]) Basophils Manual, Fluid 04/20/2025 9:17 AM EDT [facility] ([facility]) Mesothelial Manual, Fluid 3 04/20/2025 9:17 AM EDT [facility] ([facility]) Other Cells, BF Manual 04/20/2025 9:17 AM EDT [facility] ([facility]) Fluid (Pericardial Fluid) Non-blood Collection / Unknown 04/19/2025 3:23 PM EDT 04/19/2025 3:33 PM EDT Narrative [facility] ([facility]) - 04/20/2025 9:17 AM EDT Differential performed on cytospin Venu Samaniego MD LAB BODY FLUIDS AND STOOLS ORDERABLES Final Result [facility]) [address] [place] [address] * Anaerobic culture (04/19/2025 3:23 PM EDT) Anaerobic Culture No anaerobes isolated at day 5 FLORA 04/25/2025 10:12 AM EDT [facility] ([facility]) 04/19/2025 3:23 PM EDT 04/19/2025 3:33 PM EDT Venu Samaniego MD LAB MICROBIOLOGY - GENERAL ORDERABLES Final Result Performing Organization Address City/[facility]/ZIP Co de Phone Number [facility] ([facility]) [address] [place] [address] * Body fluid culture (04/19/2025 3:23 PM EDT) Culture No growth at 5 days FLORA 04/24/2025 7:53 AM EDT [facility] ([facility]) Gram Stain Result No polymorphonuclear leukocytes seen 04/24/2025 7:53 AM EDT [facility] ([facility]) Gram Stain Result No organisms seen 04/24/2025 7:53 AM EDT [facility] ([facility]) Fluid Non-blood Collection / Unknown 04/19/2025 3:23 PM EDT 04/19/2025 3:33 PM EDT Venu Samaniego MD LAB MICROBIOLOGY - GENERAL ORDERABLES Final Result [facility]) [address] [place] [address] * (ABNORMAL) Body fluid cell count with differential (04/19/2025 3:23 PM EDT) Fluid Type Cell Count Pericardial Fluid 04/20/2025 9:17 AM EDT [facility] ([facility]) Fluid Volume 300mL 04/20/2025 9:17 AM EDT [facility] RBC, Fluid 245,940(H) 0 - 1,000 RBC/uL 04/20/2025 9:17 AM EDT [facility] ([facility]) Total Number of Nucleated Cells 14,314 TNC/uL 04/20/2025 9:17 AM EDT [facility] ([facility]) Fluid (Pericardial Fluid) Non-blood Collection / Unknown 04/19/2025 3:23 PM EDT 04/19/2025 3:33 PM EDT Narrative [facility] ([facility]) - 04/20/2025 9:17 AM EDT Reference Ranges [...] BODY FLUIDS AND STOOLS ORDERABLES Final Result [facility] ([facility]) [address] [place] [address] * Non-crystal attacher cytology - cellular exam (04/19/2025 3:23 PM EDT) Case Report Non-gynecologic Cytology Case: [id number] Authorizing Provider: Venu Samaniego MD Collected: 04/19/2025 1523 Ordering Location: [facility] HV Received: 04/19/2025 1533 Pathologist: Halima Marr MD Specimen: Pericardial Fluid 04/24/2025 5:46 PM EDT [facility] ([facility]) Final Diagnosis A. Pericardial fluid: - Negative for malignancy. - Marked acute inflammation. 04/24/2025 5:46 PM EDT [facility] ([facility]) at 1746 EDT Microscopic Description Satisfactory for evaluation. Examination of the ThinPrep slide and cell block reveals rare benign mesothelial cells and abundant acute inflammation. 04/24/2025 5:46 PM EDT [facility] ([facility]) Clinical Information Pericardial effusion 04/24/2025 5:46 PM EDT [facility] ([facility]) Gross Description 250 mL opaque, red fluid 04/24/2025 5:46 PM EDT [facility] ([facility]) Pericardial Fluid 04/19/2025 3:23 PM EDT 04/19/2025 3:33 PM EDT us Venu Samaniego MD LAB CYTOLOGY ORDERABLES Fi nal Result [facility] ([facility]) [address] [place] [address] * LEFT HEART CATH, RIGHT HEART CATH, [...] and a micropuncture access technique a 6 American sheath was placed in the right femoral [...] 3 mmHg Study Details Pericardial effusion [I31.39] Venu Samaniego MD CV CARDIAC CATH PROCEDURES Final Result * (ABNORMAL) POC Hb02% (04/19/2025 2:47 PM EDT) [id number]% 67.2(A) 90 - 95 % QC Pass/Fail Passed QC LOT # [id number] QC Expiration Date 73,126 SAMPLESITE nl Blood Venous blood specimen / Unknown 04/19/2025 2:47 PM EDT Narrative Farshad Ramirez MT - 04/20/2025 6:16 AM EDT Oper 9082 Benedict Pascual MD POINT OF CARE TEST ENTER/EDIT OR DERABLES Final Result * (ABNORMAL) POC Hb02% (04/19/2025 2:47 PM EDT) [id number]% 89.8(A) 90 - 95 % QC Pass/Fail Passed QC LOT # [id number] QC Expiration Date 73,126 SAMPLESITE nl Blood Venous blood specimen / Unknown 04/19/2025 2:47 PM EDT Narrative Farshad Ramirez MT - 04/20/2025 6:16 AM EDT Oper 9082 us Benedict Pascual MD POINT OF CARE TEST ENTER/EDIT OR DERABLES Final Result * Light Green Top (04/19/2025 2:44 PM EDT) Pathologist [facility] Extra Tube Hold for add-ons. 04/19/2025 4:01 PM EDT [facility] ([facility]) Comment:Auto resulted. Blood Venous blood specimen / Unknown Venipuncture / Unknown 04/19/2025 2:44 PM EDT 04/19/2025 2:55 PM EDT us Benedict Pascual MD LAB BLOOD ORDERABLES Final Resul t [facility] ([facility]) [address] [place] [address] * COLLIN (04/19/2025 2:44 PM EDT) [facility] COLLIN Titer <1:40 <=1:40 04/24/2025 1:12 PM EDT [facility] ([facility]) Comment:Test performed using [employer] COLLIN Hep-2 Test, a pre-standardized assay designed for the qualitative and semi-quantitative detection of antinuclear antibodies. Blood Venous blood specimen / Unknown Venipuncture / Unknown 04/19/2025 2:44 PM EDT 04/19/2025 2:54 PM EDT us Venu Samaniego MD LAB BLOOD ORDERABLES Final Result [facility] ([facility]) [address] [place] [address] * (ABNORMAL) C-reactive protein (04/19/2025 2:44 PM EDT) CRP 145.7(H) <=5.0 mg/L 04/20/2025 9:18 AM EDT [facility] ([facility]) Comment:Testing performed us ing a new methodology, turbidimetry. Normal ranges have been updated. Old normal range was <8 mg/L. Blood Venous blood specimen / Unknown Venipuncture / Unknown 04/19/2025 2:44 PM EDT 04/19/2025 2:54 PM EDT us Venu Samaniego MD LAB BLOOD ORDERABLES Final Result Performing Organization Address [facility] Co de Phone Number [facility]) [facility] [place] [address] * Lavender Top (04/19/2025 2:32 PM EDT) Extra Tube Hold for add-ons. 04/19/2025 4:01 PM EDT [facility] ([facility]) Comment:Auto resulted. Blood Venous blood specimen / Unknown Venipuncture / Unknown 04/19/2025 2:32 PM EDT 04/19/2025 2:55 PM EDT us Benedict Pascual MD LAB BLOOD ORDERABLES Final Resul t Performing Organization Address City/[facility]/ZIP Co de Phone Number [facility] ([facility]) [address] [place] [address] * COMPLETE ECHO (TTE) (04/19/2025 1:13 PM EDT) Anatomical Region Laterality Modality Other 04/19/2025 12:4 6 PM EDT Narrative 04/19/2025 1:44 PM EDT 1 [facility] Heart Station [address] [place] [address] [phone] (fax) Echocardiogram-[facility] Name: KRISTY DOHERTY Study Date: 04/19/2025 12:46 PM B/P: 97 mmHg/71 mmHg HR: Date of : 1955 Location: [facility] Height: 68 in. Age: 69 year(s) Patient [...] early tamponade physiology. Procedure Staff Reading Group: [facility] [employer] Supervisor: Bryanna Cazares RDCS Ordering Physician: HAKAN REYES Procedure Note Mitesh Vernon MD - 04/19/2025 1 1 [facility] Heart Station [address] [facility] [place] [place] [address] [phone] (fax) Echocardiogram-[facility] Name: KRISTY DOHERTY Study Date: 04/19/2025 12:46 PM B/P: 97 mmHg/71 mmHg HR: Date of : 1955 Location: [facility] Height: 68 in. Age: 69 year(s) Patient [...] early tamponade physiology. Procedure Staff Reading Group: [facility] [employer] Supervisor: Bryanna Cazares RDCS Ordering Physician: HAKAN REYES us Hakan Reyes PA-C CV ECHO PROCEDURES Final Result * Sedimentation rate (04/19/2025 12:14 PM EDT) [facility] Sed Rate 18 <20 mm/hr 04/19/2025 3:3 7 PM EDT [facility] ([facility]) Blood Venous blood specimen / Unknown Venipuncture / Unknown 04/19/2025 12:14 PM EDT 04/19/2025 12:35 PM EDT Venu Samaniego MD LAB BLOOD ORDERABLES Final Result [facility]) [address] [place] [address] * High Sensitivity Troponin I (04/19/2025 12:14 PM EDT) [facility] High Sensitivity Troponin I 7 <20 ng/L 04/19/2025 2:02 PM EDT [facility]) Blood Venous blood specimen / Unknown Venipuncture / Unknown 04/19/2025 12:14 PM EDT 04/19/2025 12:35 PM EDT Mitesh Vernon MD LAB BLOOD ORDERABLES Final Res ult [facility]) [address] [place] [address] * (ABNORMAL) Comprehensive metabolic panel (04/19/2025 12:14 PM EDT) Sodium 126(L) 136 - 145 mmol/L 04/19/2025 1:01 PM [facility] ([facility]) Potassium 5.0 3.5 - 5.1 mmol/L 04/19/2025 1:01 PM [facility] ([facility]) Chloride 91(L) 98 - 107 mmol/L 04/19/2025 1:01 PM [facility] ([facility]) CO2 28 21 - 31 mmol/L 04/19/2025 1:01 PM [facility] ([facility]) Anion Gap 12 7 - 20 mmol/L 04/19/2025 1:01 [facility] ([facility]) BUN 17 7 - 25 mg/dL 04/19/2025 1:01 [facility] ([facility]) Creatinine 0.98 0.70 - 1.30 mg/dL 04/19/2025 1:01 [facility] ([facility]) BUN/Creatinine Ratio 17.3 08/2024 1:01 [facility] ([facility]) Glucose 109(H) 70 - 100 mg/dL 04/19/2025 1:01 [facility] ([facility]) Calcium 9.5 8.6 - 10.3 mg/dL 04/19/2025 1:01 [facility] ([facility]) AST 22 13 - 39 U/L 04/19/2025 1:01 [facility] ([facility]) ALT (SGPT) 27 7 - 52 U/L 04/19/2025 1:01 [facility] ([facility]) Alkaline Phosphatase 51 34 - 104 U/L 04/19/2025 1:01 [facility] ([facility]) Total Protein 6.8 6.0 - 8.3 g/dL 04/19/2025 1:01 [facility] ([facility]) Albumin 3.8 3.5 - 5.7 g/dL 04/19/2025 1:01 [facility] ([facility]) Total Bilirubin 0.7 0.3 - 1.0 mg/dL 04/19/2025 1:01 [facility] ([facility]) eGFR 83.5 >60.0 mL/min/1. 73m*2 04/19/2025 1:01 PM EDT [facility] ([facility]) Comment:[facility] s estimated glomerular filtration rate (eGFR) [...] 12:14 PM EDT 04/19/2025 12:35 PM EDT Hakan Reyes PA-C LAB BLOOD ORDERABLES Final Resu lt [facility] ([facility]) [address] [place] [address] * (ABNORMAL) CBC (04/19/2025 12:14 PM EDT) Auto WBC 10.71(H) 4.00 - 10.60 10*3/uL 04/19/2025 12:50 PM EDT [facility] ([facility]) RBC 4.02(L) 4.20 - 5.70 10*6/uL 04/19/2025 12:50 PM EDT [facility] ([facility]) Hemoglobin 13.0 13.0 - 17.0 g/dL 04/19/2025 12:50 PM EDT [facility] ([facility]) Hematocrit 36.8(L) 39.0 - 50.0 % 04/19/2025 12:50 PM EDT [facility] ([facility]) MCV 91.5 82.0 - 98.0 fL 04/19/2025 12:50 PM EDT [facility] ([facility]) MCH 32.3 27.0 - 33.0 pg 04/19/2025 12:50 PM EDT [facility] ([facility]) MCHC 35.3(H) 32.0 - 35.0 g/dL 04/19/2025 12:50 PM EDT [facility] ([facility]) RDW 13.8 11.5 - 15.0 % 04/19/2025 12:50 PM EDT [facility] ([facility]) Platelets 185 150 - 400 10*3/uL 04/19/2025 12:50 PM EDT [facility] ([facility]) Blood Venous blood specimen / Unknown Venipuncture / Unknown 04/19/2025 12:14 PM EDT 04/19/2025 12:35 PM EDT Hakan Reyes PA-C LAB BLOOD ORDERABLES Final Resu lt [facility] ([facility]) [address] [place] [address] * ECG 12 lead (04/19/2025 12:09 PM EDT) Ventricular Rate 99 BPM GE MUSE Atrial Rate 99 BPM GE MUSE HI Interval 196 ms GE MUSE QRS DURATION 104 ms GE MUSE QT Interval 322 ms GE MUSE QTC CALCULATION(BAZE TT) 413 ms GE MUSE P Jarreau 43 degrees GE MUSE R-Jarreau 21 degrees GE MUSE T Wave Jarreau 67 degrees GE MUSE 04/19/2025 12:0 3 [...] Hakan Reyes PA-C ECG ORDERABLES Final Result [facility] documented in this encounter Visit [...] cardioverter-defibrillator) in place Coronary artery disease involving [place] coronary artery of [place] heart with angina pectoris Pericardial effusion Unspecified disease of pericardium Hyponatremia Hyposmolality and/or hyponatremia Leukocytosis Leukocytosis, unspecified Hypotension due to hypovolemia Sinus tachycardia Other specified cardiac dysrhythmias Right ventricular dysfunction Unspecified heart disease Cardiac tamponade, nontraumatic Pericardial effusion Unspecified disease [...] Given 04/28/2025 6:24 AM EDT 2 mg aspirin chewable tablet 81 mg 81 mg, [...] Given 05/01/2025 9:55 PM EDT 40 mg clopidogrel (Plavix) tablet 75 mg 75 mg, [...] Given 05/02/2025 8:50 AM EDT 10 mg dextrose 50 % in water (D50W) syringe [...] dextrose IV fluids or tube feeding bolus) doxycycline (Vibramycin) capsule 100 mg 100 mg, oral, 2 times daily, First dose on Lila 05/03/25 at 1100, For 7 days, Take [...] Given 05/03/2025 1:01 PM EDT 100 mg furosemide (Lasix) injection 80 mg 80 [...] on Wed05/03/25 at 1215, For 99 days Given 05/04/2025 9:26 AM EDT 5,000 Units Left Upper Abdomen Given 05/03/2025 9:31 PM EDT 5,000 Units R ight Lower Abdomen ipratropium-albuteroL (Duo-Neb) 0.5-2.5 mg/3 mL nebulizer solution [...] Given 04/26/2025 12:48 AM EDT 5 mg metoprolol succinate XL (Toprol-XL) 24 hr split tablet 12.5 mg 12.5 mg, oral, Daily, First dose on Wed04/23/25 at 1000, For 99 days, Hold for SBP < 90, HR < 60 Given 05/04/2025 9:22 AM EDT 12.5 mg Given 05/03/2025 1:01 PM EDT 12.5 mg Given 04/25/2025 10:04 AM EDT 12.5 mg mometasone-formoterol (Dulera 200) 200-5 mcg/actuation inhaler 2 [...] 12. ondansetron HCl (PF) (Zofran) injection 4 mg [...] 04/19/25 at 1150, For 99 days Given 04/27/2025 [...] Given 05/03/2025 8:16 AM EDT 2.5 mg sennosides-docusate sodium (Mishel-Colace) 8.6-50 mg per tablet [...] Given 04/28/2025 3:05 AM EDT 80 mg sodium chloride ([place]) 0.65 % nasal spray 1 spray 1 spray, Each Nostril, As needed, congestion, Starting on 04/29/25 at 1349, For 99 days spironolactone (Aldactone) tablet 25 mg 25 mg, oral, Daily, First dose on Lila 04/19/25 at 1230, For 99 days Given 05/04/2025 9:23 AM EDT 25 mg Given 05/03/2025 10:14 AM EDT 25 mg Given 05/02/2025 9:51 AM EDT 25 mg documented in this encounter Active and Recently Administered Medications Times are shown in EDT. Scheduled Medication Order 05/02/2025 05/03/2025 05/04/2025 allopurinol (Zyloprim) tablet 300 mg 300 mg, oral, Daily, First dose on Lila 04/19/25 at 1230, For 99 days 0950 (Given - Provider: Little Hector RN) 1014 (Given - Provider: Daisy Dior RN) 0923 (Given - Provider: Daisy Dior RN) aspirin chewable tablet 81 mg 81 mg, oral, Daily with breakfast, First dose on Wed04/20/25 at 0800, For 99 days 0850 (Given - Provider: Little Hector RN) 0816 (Given - Provider: Daisy Dior RN) 0923 [...] 0923 (Given - Provider: Daisy Dior RN) colchicine tablet 0.6 mg 0.6 mg, [...] Little Hector RN) 1014 (Given - Provider: Diasy Dior RN) 0923 (Given - Provider: Daisy Dior RN) doxycycline (Vibramycin) capsule 100 mg 100 [...] Hector RN) 1014 (Given - Provider: Daisy Diro, SAL) furosemide (Lasix) injection 40 mg (COMPLETED) [...] Schultz RN) 0926 (Given - Provider: Daisy Dior RN) magnesium sulfate in D5W IVPB 1 g (COMPLETED) 1 g, intravenous, at 100 mL/hr, Administer over 1 Hours, Every 1 hour, First dose on Wed05/03/25 at 0615, For 2 doses 0623 (New Bag - Provider: Kannan Newell RN)0714 (Stopped - Provider: Daisy Dior RN)0810 (New Bag - Provider: Daisy Dior RN)0910 (Stopped - Provider: Daisy Dior RN) magnesium [...] Provider: Cheryl Way)2030 (Given - Provider: Kannan Newell RN) 101 (Given - Provider: Daisy Dior RN)2130 (Given - Provider: Myesha Schultz RN) 0926 (Given - Provider: Daisy Dior, SAL) potassium [...] Hector RN)0755 (New Bag - Provider: Little Hector, RN)0814 (Stopped - Provider: Little Hector RN)0850 [...] on Wed04/19/25 at 1230, For 99 days 0951 (Given [...] Little Hector RN)1945 (Given - Provider: Vero Mcintosh, SAL) 0250 (Given - Provider: Kannan Newell, RN)2135 (Given - Provider: Myesha Schultz, RN) 1545 [...] 99 days 2246 (Given - Provider: Kannan Newell, SAL) 0816 (Given - Provider: Daisy Dior RN)1426 (Given - Provider: Daisy Dior RN) 0013 (Given - Provider: Myesha Schultz RN) simethicone (Mylicon) chewable tablet 80 mg 80 mg, oral, Every 6 hours PRN, flatulence, Starting on Wed04/27/25 at 0850, For 99 days sodium chloride ([place]) 0.65 % nasal spray 1 spray 1 [...] documented as of this encounter Care Teams Heat Transfer Technician Relationship Specialty Start Date End Date Rudy King MD [address] [place] [address] PCP - General 07/03/22 documented as of this encounter
--- OUTSIDE RECORDS SUMMARY | 2025-05-07 07:50 | XMS_ITS | Encounter Summary ---
Author Organization The [facility] Address [address] [place] [address] Care Team Providers Care Certified Master Safe Technician Name Role Phone Rudy Guerra MD Primary Care Provider [phone] Reason for Visit * Reason Comments Med Refill Encounter Details Date Type Department Care Team (Late st Contact Info) Description 08/27/2023 Refill [facility] [address] [place] [address] Chencho Benjamin MD [address] [place] [address] Coronary artery disease involving [place] coronary artery of [place] heart without angina pectoris Social History Tobacco [...] AM EDT documented as of this encounter Plan of Treatment Upcoming Encounters Date Type Department Care Team (Late st Contact Info) Description 05/14/2025 1:40 PM EDT Office Visit [facility] [address] [place] [address] Elliott Nettles, HEALTH ASSISTANT [address] [place] [address] documented as of this encounter Visit Diagnoses Diagnosis Coronary artery disease involving [place] coronary artery of [place] heart without angina pectoris documented in this encounter Additional Health Concerns Infection Onset Date Last Indicated Resolved Time C. difficile Rule-Out Comment:Test discontinued 04/22/2025 04/22/2025 04/24/2025 7:3 1 AM EDT documented as of this encounter Care Teams Certified Master Safe Technician Relationship Specialty Start Date End Date Rudy Guerra MD [address] [place] [address] PCP - General 07/03/22 documented as of this encounter
--- OUTSIDE RECORDS SUMMARY | 2025-05-07 07:50 | XMS_ITS | Encounter Summary ---
Author Organization [facility] Address [address] [facility] [place] [address] Care Team Providers Care Grip Wrapper Name Role Phone Rudy Guerra MD Primary Care Provider [phone] Rudy Guerra MD Primary Care Provider [phone] Encounter Details Date Type Department Care Team (Late st Contact Info) Description 01/05/2024 Orders Only [facility] [address] [facility] [address] [place] [id number] Janette Gurrola, SAL [address] [facility] [address] [place], [place] [id number] Social History Tobacco Use Types Packs/Day Years [...] on filedocumented in this encounter Care Teams Grip Wrapper Relationship Specialty Start Date End Date Rudy Guerra MD PCP - General Family Medicine 03/02/23 01/16/24 Rudy Guerra MD PCP - General Family Medicine 01/17/24 documented as of this encounter
--- OUTSIDE RECORDS SUMMARY | 2025-05-07 07:50 | XMS_ITS | Encounter Summary ---
Author Organization [facility] Address [address] [place] [address] Care Team Providers Care Boarding Kennel Or Cattery Operator Name Role Phone Rudy Guerra MD Primary Care Provider [phone] Reason for Visit * Reason Comments Med Refill Encounter Details Date Type Department Care Team (Late st Contact Info) Description 06/15/2023 Refill [facility] [address] [place] [address] Chencho Benjamin MD [address] [place] [address] Coronary artery disease involving [place] coronary artery of [place] heart without angina pectoris Social History Tobacco [...] Description 05/14/2025 1:40 PM EDT Office Visit [facility] [address] [place] [address] Elliott Nettles, MOLYBDENUM STEAMER OPERATOR [address] [place] [address] documented as of this encounter Visit Diagnoses Diagnosis Coronary artery disease involving [place] 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 difficile Rule-Out Comment:Test discontinued 04/22/2025 04/22/2025 04/24/2025 7:3 1 AM EDT documented as of this encounter Care Teams Boarding Kennel Or Cattery Operator Relationship Specialty Start Date End Date Rudy Guerra MD [address] [place] [address] PCP - General 07/03/22 documented as of this encounter
--- OUTSIDE RECORDS SUMMARY | 2025-05-07 07:50 | XMS_ITS | Encounter Summary ---
Author Organization [facility] Address [address] [place] [address] Care Team Providers Care Asbestos Handler Name Role Phone Rudy Guerra MD Primary Care Provider [phone] Reason for Visit * Reason Comments Med Change Request Encounter Details Date Type Department Care Team (Late st Contact Info) Description 08/02/[address] [address] Chencho Benjamin MD [address] [place] [address] Coronary artery disease involving [place] coronary artery of [place] heart without angina pectoris Social History Tobacco [...] Heterosexual or Straight 12/2024 8:51 AM EDT COVID-19 Exposure Response Date Recorded In the last 10 days, have yo u been in contact with someone who was confirmed or suspected to have Coronavirus/COVID-19? No / Unsure 07/06/2022 11:15 AM EST documented as of this encounter Plan of Treatment Upcoming Encounters Date Type Department Care Team (Late st Contact Info) Description 05/14/2025 1:40 PM EDT Office Visit [facility] [address] [place] [address] Elliott Nettles, CULINARY INSTRUCTOR [address] [place] [address] documented as of this encounter Visit Diagnoses Diagnosis Coronary artery disease involving [place] coronary artery of [place] heart without angina pectoris documented in this encounter Additional Health Concerns Infection Onset Date Last Indicated Resolved Time C. difficile Rule-Out Comment:Test discontinued 04/22/2025 04/22/2025 04/24/2025 7:3 1 AM EDT documented as of this encounter Care Teams Asbestos Handler Relationship Specialty Start Date End Date uRdy Guerra MD [address] [place] [address] PCP - General 07/03/22 documented as of this encounter
--- OUTSIDE RECORDS SUMMARY | 2025-05-07 07:50 | XMS_ITS | Encounter Summary ---
Author Organization [facility] Address [address] [place] [address] Care Team Providers Care Production Underwriter Name Role Phone Rudy Guerra MD Primary Care Provider [phone] Rudy Guerra MD Primary Care Provider [phone] Encounter Details Date Type Department Care Team [...] on file documented as of this encounter Procedures Procedure Name Priority Date/Time Associated Diagnosis Comments CA ECHO DOPPLER COMPLETE 12/14/2023 7:11 PM EDT documented in this encounter Results * CA ECHO DOPPLER COMPLETE (12/14/2023 7:11 PM EDT) Anatomical Region Laterality Modality Other 12/14/2023 7:11 PM EDT Narrative 12/14/2023 7:12 PM EDT The [address] [address] Cardiology Report Signed Patient: KRISTY DOHERTY MR#: [id number] : 1955 Acct:[id number] Age/Sex: 68 / M ADM Date: 12/14/23 Loc: CARD Attending Dr: BORIS WILLIAM Ordering Physician: BORIS WILLIAM Date of Service: 12/14/23 Procedure(s): CA echo doppler complete Accession Number(s): [id number] cc: BORIS WILLIAM; Rudy Guerra M.D. Patient Name: KRISTY DOHERTY MR#: [id number] : 1955 Exam Date: 12/14/2023 Ordering Doctor: [...] WILLIAM Signed By: 12/14/231911 DD/ 10 TD/TT: Release Of Information Clerk: Procedure Note Radiology, Radiologist, - 12/14/2023 [place] [address] Cardiology Report Signed Patient: KRISTY DOHERTYMR#: [id number] : 1955cct:[id number] Age/Sex: 68 / MADM Date: 12/14/23 Loc: CARD Attending Dr: BORIS WILLIAM Ordering Physician: BORIS WILLIAM Date of Service: 12/14/23 Procedure(s): CA echo doppler complete Accession Number(s): [id number] cc: BORIS WILLIAM; Rudy Guerra M.D. Patient Name: KRISTY DOHERTY MR#: [id number] : 1955 Exam Date: 12/14/2023 Ordering Doctor: [...] BORIS WILLIAM Signed By:12/14/231911 DD/ 10 TD/TT: Release Of Information Clerk: us Generic External Data Provider [facility] Final Result documented in this encounter Visit Diagnoses Not on filedocumented in this encounter Care Teams Production Underwriter Relationship Specialty Start Date End Date Rudy Guerra MD PCP - General Family Medicine 03/02/23 01/16/24 Rudy Guerra MD PCP - General Family Medicine 01/17/24 documented as of this encounter
--- OUTSIDE RECORDS SUMMARY | 2025-05-07 07:50 | XMS_ITS | Encounter Summary ---
Author Organization [facility] Address [address] [place] [address] Care Team Providers Care Club Waiter/Waitress Name Role Phone Arturo PIMENTEL MD, Dakota Franco Primary Care Provider [phone] Source Comments In the event this information is protected by the Federal Confidentiality of Alcohol and Drug AbusePatient Records regulations: The Federal rules restrict any use of the information to criminally investigate or prosecute any alcohol or drug abuse patient.[facility] Encounter Details Date Type Department Care Team (Late st Contact Info) Description 03/02/2012 [facility] [address] [id number] Rosi Clinton MD, PhD [address] [facility] [address] [place] [address] Social History Tobacco Use Types [...] on filedocumented in this encounter Care Teams Club Waiter/Waitress Relationship Specialty Start Date End Date Dakota Morris II, MD PCP - General Internal Medicine 02/18/12 documented as of this encounter
--- OUTSIDE RECORDS SUMMARY | 2025-05-07 07:50 | XMS_ITS | Clinical Summary ---
Author Organization [facility] Healthcare Address [address] [place] [address] Care Team Providers Care Consulting Intern Name Role Phone Rudy Guerra MD Primary Care Provider [phone] Allergies No known active allergies Medications sacubitril-valsar cowan (Entresto) 49-51 MG tablet Take 1 tablet by mouth in the morning and 1 tablet in the evening. 3 Active Farxiga 10 MG Take 10 mg by mouth 1 (one) time each day at the same time Active spironolactone (Aldactone) 25 MG tablet Take 25 mg by mouth in the morning. 3 Active atorvastatin (Lipitor) 40 MG tablet Take 40 mg by mouth 1 (one) time each day at the same time Active Dupixent 300 MG/2ML injection Inject 300 mg under the skin every 14 (fourteen) days 3 Active metoprolol succinate XL (Toprol-XL) 50 MG 24 hr tablet Take 50 mg by mouth Daily 3 Active Eliquis 5 MG tablet Take 5 mg by mouth in the morning and 5 mg before bedtime. 4 Active allopurinol (Zyloprim) 300 MG tabletIndications :Gout, unspecified cause, unspecified chronicity, unspecified site TAKE 1 TABLET BY MOUTH DAILY 270 tablet 5 Active fluticasone (Flonase) 50 MCG/ACT nasal sprayIndications: Mild persistent asthma without complication (HCC) instill 1 spray IN EACH NOSTRIL DAILY 16 g 1 5 Active albuterol HFA 90 mcg/act inhalerIndication s:Mild persistent asthma without complication (HCC) Inhale 2 puffs every 4 (four) hours if needed for wheezing 8.5 g 1 5 Active Fluticasone-Salme terol 500-50 MCG/ACT aerosol powderIndications :Mild persistent asthma without complication (HCC) INHALE 1 PUFF BY MOUTH IN THE MORNING then INHALE 1 PUFF BY MOUTH BEFORE bedtime 60 each 3 5 Active Active Problems Problem Noted Date Diagnosed Date PAF (paroxysmal atrial fibrillation) 07/22/2023 Overview (12/12/2024): Documented on 08/24/2023 by [...] (03/02/2023): Added automatically from request for surgery [id number] Last Assessment & Plan: As above Seasonal [...] with cardiology. Coronary artery disease invo lving tolowa dee-ni' coronary artery of tolowa dee-ni' heart without angina pectoris 07/06/2022 Overview (03/02/2023): [...] he may no BiV ICD - continue [id number], entresto 24-26, will add medications pending echo Syncope and collapse 07/02/2022 023 Overview (03/02/2023): Added automatically from request for surgery [id number] Encounters Date Type Department Care Team Description 02/26/2025 Refill [facility] [address] [place] [address] Rudy Guerra MD Mild persistent asthma without complication (HCC) 02/05/2025 11:10 AM EDT Office Visit [facility] [address] [place] [address] Sandra Solis MD Nasal polyp (Primary Dx) 02/05/2025 Bamboo flowsheet [facility] [address] [place] [address] Sandra Solis MD 02/05/2025 Travel from Last 3 Months Immunizations Immunization Administration [...] Sign Reading Time Taken Comments Blood Pressure 156/34 02/05/2025 11:01 AM EDT Pulse 88 02/05/2025 11:01 AM EDT Temperature 36.6 C (97.8 F) 12/12/2024 3:08 PM EDT Respiratory Rate 18 12/12/2024 3:08 PM EDT Oxygen Saturation 96% 12/12/2024 3:08 PM EDT Inhaled Oxygen Concentration - - Weight 85.3 kg (188 lb) 02/05/2025 11:01 AM EDT Height 172.7 cm (5' 8 ) 02/05/2025 11:01 AM EDT Body Mass Index 28.59 02/05/2025 11:01 AM EDT Plan of Treatment Not on file Insurance [facility] MEDICARE COMPLETE Care Teams Consulting Intern Relationship Specialty Start Date End Date Rudy Guerra MD PCP - General Family Medicine 01/17/24
--- OUTSIDE RECORDS SUMMARY | 2025-05-07 07:53 | XMS_ITS | CCD ---
Author Organization [facility] Care Team Providers Care Malt Loader Name Role Phone JUDY, DR ESCALANTE Attending [...] Bernstein Consulting Unavailable KAE GOMEZ Attending Unavailable JASONKEA VICKERS Admitting Unavailable JASONKAE VICKERS Consulting Unavailable DAVID RIOS Attending Unavailable DAVID RIOS Admitting Unavailable ASIF COLVIN Consulting Unavailable NADERER, DR RUDY Simpson Primary Care Unavailable GABRIELDAVID GARCIA Consulting Unavailable MOUKARBEL, DR ESCALANTE Consulting Unavailable MOUKARBEL, DR ESCALANTE Attending Unavailable MOUKARBEL, DR ESCALANTE Admitting Unavailable NADERER, DR RUDY Simpson Primary Care Unavailable AICHHOLZ, NICKER APOORVA Admitting Unavailable AICHHOLZ, NICKER APOORVA Consulting Unavailable AICHHOLZ, NICKER APOORVA Attending Unavailable NADERER, DR RUDY Simpson Primary Care Unavailable BONNIE RODRIGUES Consulting Unavailable NADERER, DR RUDY Simpson Primary Care Unavailable BARMILDRED BOUDREAUX Admitting Unavailable BARAZI, MILDRED Consulting Unavailable MILDRED LOGAN Attending Unavailable DR RUDY KING Primary Care Unavailable NARBERTH, DR ASIF Davila Consulting Unavailable MARCELA, SHAIKH Michelle Attending Unavailable MARCELA, SHAIKH Michelle Admitting Unavailable FAURSULA, SHAIKH Michelle Consulting Unavailable Kristy Beatty Attending Unavailable Rogerio, Kristy Admitting Unavailable Rudy King MD Primary Care Provider RUDY KING Attending Unavailable MARIAH LANGE Attending Unavailable MESERET WELLS Admitting Unavailable HORANI, RAFA Attending Unavailable FROY CLAY Referring Unavailable MOUKARBEL, BORSI Attending Unavailable MOUKABORIS FALCON Admitting Unavailable LINETTE, PEDRO Referring Unavailable LINETTE, PEDRO Referring Unavailable MOUKARBEL, BORIS Referring Unavailable GABRIEL, DAVID Referring Unavailable GABRIEL, DAVID Referring Unavailable GABRIEL, DAVID Referring Unavailable ARMIN, CHUCK Referring Unavailable GABRIEL, DAVID Referring Unavailable ROCÍO, BEBA Referring Unavailable GABRIEL, DAVID Referring Unavailable GABRIEL, DAVID Referring Unavailable GABRIEL, DAVID Referring Unavailable ROCÍO, BEBA Referring Unavailable ROCÍO, BEBA Referring Unavailable GABRIEL, DAVID Referring Unavailable ARMIN, CHUCK Referring Unavailable MARIA ISABEL, HAKAN Referring Unavailable CASTILLO, RISA Referring Unavailable HORANI, RAFA Referring Unavailable ROCÍO, BEBA Referring Unavailable ARMIN, CHUCK Referring Unavailable KACEY, ALEKSANDR Referring Unavailable NEMO, HEMANT Referring Unavailable ADEN, VENU Referring Unavailable GABRIEL, DAVID Referring Unavailable LINETTE, PEDRO Referring Unavailable GABRIEL, DAVID Referring Unavailable MOUKARBEL, BORIS Attending Unavailable ARMINCHUCK Attending Unavailable MOUKARBEL, BORIS Attending Unavailable MOUKARBEL, BORIS Attending Unavailable GABRIEL, DAVID Referring Unavailable GABRIEL, DAVID Referring Unavailable GABRIEL, DAVID Referring Unavailable GABRIEL, DAVID Referring Unavailable ADEN, CHRISTJERILYN Referring Unavailable SAULO, PAULO Joseph Referring Unavailable MARIA ISABEL, HAKAN Referring Unavailable HORANI, RAFA Referring Unavailable LAURA, SAMAR Referring Unavailable Allergies Allergy Classification Reported Allergen(s) Allergy Type Date of Onset Reaction(s) Facility (1 source) OCTACOSANOL; Translations: [OCTACOSANOL] Propensity to adverse reactions to drug (disorder) [facility] Repository Medications Current Medications Medication Drug Class(es) Dates Sig (Normalized) Sig (Original) [id number] 200 actuat albuterol 0.09 mg/actuat metered dose inhaler (9 sources) beta2-Adrenergic Agonist Start: 01-16-2025 take 2 puff(s) by inhalation every four hours for wheezing albuterol HFA 90 mcg/act inhaler Indications: Mild persistent asthma without complication (HCC) Inhale 2 puffs every 4 (four) hours if needed for wheezing 8.5 g 1 01/16/2025 Active Start: 11-14-2024 take 2 puff(s) by mo uth every four hours as needed for wheezing albuterol HFA 90 mcg/act inhaler Indications: Mild persistent asthma without complication (CMS/HCC) INHALE 2 (TWO) PUFFS BY MOUTH EVERY FOUR HOURS NEEDED FOR FOR WHEEZING 8.5 g 1 11/14/2024 Active Start: 06-19-2024 take 2 puff(s) by mo uth every four hours as needed for wheezing albuterol HFA 90 mcg/act inhaler Indications: Mild persistent asthma without complication (CMS/HCC) INHALE 2 PUFFS BY MOUTH EVERY 4 HOURS NEEDED FOR WHEEZING 8.5 g 1 06/19/2024 Active allopurinol 300 mg oral tablet (9 sources) Xanthine Oxidase Inhibitor Start: 11-29-2024 take 1 tablet by mouth once daily allopurinol (Zyloprim) 300 MG tablet Indications: Gout, unspecified cause, unspecified chronicity, unspecified site TAKE 1 TABLET BY MOUTH DAILY 270 tablet 11/29/2024 Active Start: 11-01-2023 End: 10-31-2024 take 1 tablet by mouth once daily allopurinol (Zyloprim) 300 MG tablet Indications: Gastroesophageal reflux disease without esophagitis Take 1 tablet (300 mg) by mouth 1 (one) time each day at the same time 30 tablet 11 11/01/2023 10/31/2024 Active apixaban 5 mg oral tablet (9 sources) Factor Xa Inhibitor Start: 12-14-2023 take 1 tablet by mouth in the morning Eliquis 5 MG tablet Take 5 mg by mouth in the morning and 5 mg before bedtime. 12/14/2023 Active atorvastatin 40 mg oral tablet (9 sources) HMG-CoA Reductase Inhibitor take 1 tablet by mouth once daily atorvastatin (Lipitor) 40 MG tablet Take 40 mg by mouth 1 (one) time each day at the same time Active dapagliflozin 10 mg oral tablet (9 sources) Sodium-Glucose Cotransporter 2 Inhibitor take 10 mg by mouth once daily Farxiga 10 MG Take 10 mg by mouth 1 (one) time each day at the same time Active 2 ml dupilumab 150 mg/ml prefilled syringe (9 sources) Interleukin-4 Receptor alpha Antagonist Start: 10-08-2022 Dupixent 300 MG/2ML injection Inject 300 mg under the skin every 14 (fourteen) days 10/08/2022 Active fluticasone propionate 0.05 mg/actuat metered dose nasal spray (9 sources) Corticosteroid Start: 01-02-2025 take 1 spray(s) nasal route once daily fluticasone (Flonase) 50 MCG/ACT nasal spray Indications: Mild persistent asthma without complication (HCC) instill 1 spray IN EACH NOSTRIL DAILY 16 g 1 01/02/2025 Active Start: 09-04-2024 take 1 spray(s) nasa l route once daily fluticasone (Flonase) 50 MCG/ACT nasal spray Indications: Mild persistent asthma without complication (CMS/HCC) instill 1 spray IN EACH NOSTRIL DAILY. shake gently, before first use, prime pump and after use clean tip and replace cap 16 g 1 09/04/2024 Active Start: 06-26-2024 take 1 spray(s) nasa l route once daily fluticasone (Flonase) 50 MCG/ACT nasal spray Indications: Mild persistent asthma without complication (CMS/HCC) instill 1 spray IN EACH NOSTRIL DAILY. shake gently, before first use, prime pump and after use clean tip and replace cap 16 g 1 06/26/2024 Active 60 actuat fluticasone propionate 0.5 mg/actuat / salmeterol 0.05 mg/actuat dry powder inhaler (9 sources) Corticosteroid, beta2-Adrenergic Agonist Start: 06-12-2024 End: 10-17-2025 take 1 puff(s) by inhalation in the morning Fluticasone-Salmeterol 500-50 MCG/ACT aerosol powder Indications: Mild persistent asthma without complication (HCC) Inhale 1 puff in the morning and 1 puff before bedtime. 60 each 3 10/17/2024 10/17/2025 Active 24 hr metoprolol succinate 50 mg extended release oral tablet (9 sources) beta-Adrenergic Lynette Start: 06-29-2023 take 1 tablet by mouth once daily metoprolol succinate XL (Toprol-XL) 50 MG 24 hr tablet Take 50 mg by mouth Daily 06/29/2023 Active Start: 06-29-2023 take 1 tablet by rosalio th every twenty-four hours in the morning metoprolol succinate XL (Toprol-XL) 50 MG 24 hr tablet Take 50 mg by mouth in the morning. 06/29/2023 Active sacubitril 49 mg / valsartan 51 mg oral tablet (9 sources) Angiotensin 2 Receptor Lynette Start: 02-19-2023 take 1 tablet by mouth in the morning sacubitril-valsartan (Entresto) 49-51 MG tablet Take 1 tablet by mouth in the morning and 1 tablet in the evening. 02/19/2023 Active spironolactone 25 mg oral tablet (9 sources) Aldosterone Antagonist Start: 08-24-2022 take 1 tablet by mouth in the morning spironolactone (Aldactone) 25 MG tablet Take 25 mg by mouth in the morning. 08/24/2022 Active Problems Active Problems Problem Classification Problem Date Documented Da te Episodic/Chronic Asthma (13 sources) Mild persistent asthma, uncomplicated; Translations: [Unspecified asthma, uncomplicated] Onset: 07-29-2012 07-22-2023 Chronic Cancer of prostate (9 sources) Malignant tumor of prostate; Translations: [Malignant neoplasm of prostate] Onset: 07-02-2008 03-02-2023 Chronic Cardiac dysrhythmias (17 sources) Atrial fibrillation; Translations: [Unspecified atrial fibrillation] Onset: 07-22-2023 01-17-2024 Chronic Complication of device; implant or graft (2 sources) Other specified complication of vascular prosthetic devices, implants and grafts, sequela; Translations: [Other specified complication of vascular prosthetic devices, implants and grafts, sequela] Onset: 04-19-2025 Episodic Conduction disorders (17 sources) Presence of automatic (implantable) cardiac defibrillator; Translations: [Automatic implantable cardiac defibrillator in situ] Onset: 09-05-2022 Chronic Congestive heart failure; nonhypertensive (20 sources) Chronic systolic (congestive) heart failure; Translations: [Acute on chronic systolic (congestive) heart failure] Onset: 07-02-2022 Resolved: 03-02-2023 Chronic Coronary atherosclerosis and other heart disease (15 sources) Coronary arteriosclerosis; Translations: [Atherosclerotic heart disease of [place] coronary artery without angina pectoris] Onset: 07-06-2022 03-02-2023 Chronic Diabetes mellitus without complication (12 sources) Prediabetes; Translations: [Prediabetes] Onset: 07-09-2022 03-02-2023 Episodic Digestive congenital anomalies (1 source) Other specified congenital malformations of intestine; Translations: [OTH SPEC CONGEN MALFORM INTESTINE] Onset: 01-30-2022 Chronic Disorders of lipid metabolism (20 sources) Mixed hyperlipidemia; Translations: [Hyperlipidemia, unspecified] Onset: 07-02-2008 03-02-2023 Chronic Essential hypertension (20 sources) Benign essential hypertension; Translations: [Essential (primary) hypertension] Onset: 05-27-2011 Resolved: 03-02-2023 03-02-2023 Chronic Fluid and electrolyte disorders (3 sources) Hypokalemia; Translations: [Hypo-osmolality and hyponatremia] Onset: 07-09-2022 Episodic Headache; including migraine (3 sources) Headache; including migraine; Translations: [HEADACHE UNSPECIFIED] Onset: 07-02-2022 Heart valve disorders (1 source) Combined rheumatic disorders of mitral, aortic and tricuspid valves; Translations: [COMB RHEUMAT D/O MITRL AORTC TRICSP] Onset: 08-20-2022 Chronic Hypertension with complications and secondary hypertension (1 source) Hypertensive heart disease with heart failure; Translations: [HTN HEART DISEASE W/HEART FAIL] Onset: 07-09-2022 Chronic Malaise and fatigue (2 sources) Weakness; Translations: [Weakness] Onset: 04-19-2025 Episodic Mood disorders (10 sources) Major depressive disorder, single episode, unspecified; Translations: [Depressive disorder] Onset: 01-30-2022 03-02-2023 Chronic Nonspecific chest pain (2 sources) Chest pain, unspecified; Translations: [Chest pain, unspecified] Onset: 04-19-2025 Episodic Nutritional deficiencies (10 sources) Vitamin D deficiency, unspecified; Translations: [Vitamin D deficiency] Onset: 01-30-2022 03-02-2023 Chronic Other and ill-defined heart disease (2 sources) Heart disease, unspecified; Translations: [Heart disease, unspecified] Onset: 04-19-2025 Chronic Other circulatory disease (2 sources) Presence of other cardiac implants and grafts; Translations: [Presence of other cardiac implants and grafts] Onset: 02-06-2025 Chronic Other circulatory disease (2 sources) Hemorrhage, not elsewhere classified; Translations: [Hemorrhage, not elsewhere classified] Onset: 02-26-2025 Episodic Other liver diseases (9 sources) Steatosis of liver; Translations: [Fatty (change of) [...] Onset: 01-30-2022 Chronic Other upper respiratory disease (9 sources) Allergic rhinitis due to pollen; Translations: [Allergic rhinitis due to pollen] Onset: 03-02-2023 03-02-2023 Chronic Other upper respiratory disease (9 sources) Seasonal allergic rhinitis; Translations: [Other seasonal allergic rhinitis] Onset: 08-31-2022 03-02-2023 Chronic Other upper respiratory disease (9 sources) Chronic rhinitis; Translations: [Chronic rhinitis] Onset: 03-02-2023 Resolved: 03-02-2023 03-02-2023 Chronic Other upper respiratory disease (11 sources) Polyp of nasal cavity and/or nasal sinus; Translations: [Nasal polyp, unspecified] Onset: 03-02-2023 03-02-2023 Episodic Other upper respiratory infections (9 sources) Chronic pansinusitis; Translations: [Chronic pansinusitis] Onset: 03-02-2023 03-02-2023 Chronic Mishel-; endo-; and myocarditis; cardiomyopathy (except that caused by tuberculosis or sexually transmitted disease) (13 sources) Cardiomyopathy; Translations: [Other cardiomyopathies] Onset: 09-01-2022 03-02-2023 Chronic Rheumatoid arthritis and related disease (1 source) Inflammatory polyarthropathy; Translations: [Inflammatory polyarthropathy] Onset: 12-03-2022 Chronic Unclassified (1 source) CONTACT W/AND (SUSP) EXPOS COVID-19; Translations: [CONTACT W/AND (SUSP) EXPOS COVID-19] Onset: 07-09-2022 Unclassified (1 source) Other pericardial effusion (noninflammatory); Translations: [Other pericardial effusion (noninflammatory)] Onset: 04-19-2025 Past or Other Problems Problem Classification Problem Date Documented Da te Episodic/Chronic Cancer of prostate (10 sources) Personal history of malignant neoplasm of prostate; Translations: [History of malignant neoplasm of prostate] Onset: 07-03-2022 Resolved: 03-02-2023 03-02-2023 Episodic E Codes: Struck by; against (1 source) Striking against or struck by other objects, initial encounter; Translations: [STRIKING AGNST/STRUCK OTH OBJ INIT] Onset: 07-09-2022 Episodic Immunizations and screening for infectious disease (1 source) Encounter for immunization; Translations: [ENCOUNTER FOR IMMUNIZATION] Onset: 07-09-2022 Episodic Other aftercare (1 source) Other intermodal dispatcher (current) drug therapy; Translations: [OTH MCFP CURRENT DRUG THERAPY] Onset: 07-09-2022 Episodic Other connective tissue disease (4 sources) Pain in left foot; Translations: [PAIN IN LEFT FOOT] Onset: 08-18-2022 Episodic Other injuries and conditions due to external causes (1 source) Unspecified injury of head, initial encounter; Translations: [UNSPECIFIED INJURY HEAD INITIAL ENC] Onset: 07-09-2022 Episodic Other nutritional; endocrine; and metabolic disorders (9 sources) Hypomagnesemia; Translations: [Hypomagnesemia] Onset: 07-03-2022 Resolved: 03-02-2023 [...] OF NICOTINE DEPEND] Onset: 07-09-2022 Episodic Syncope (10 sources) Syncope and collapse; Translations: [Syncope and collapse] Onset: 07-02-2022 Resolved: 03-02-2023 03-02-2023 Episodic Unclassified (1 source) Other pericardial effusion (noninflammatory); Translations: [Other pericardial effusion (noninflammatory)] Onset: 04-19-2025 Results Test Name Value Interpretation Reference Range Facility BASIC METABOLIC PANELon 04-18 Anion gap [Moles/Vol] 15 mmol/L Normal 7-20 [facility] Comment on above: Performed By: #### L [id number] ####[facility] ([facility])[address] [place] [address] Calcium [Mass/Vol] 7.3 mg/dL Low 8.6-10.3 [facility] Comment on above: Performed By: #### L [id number] ####[facility] ([facility])[address] [place] [address] Chloride [Moles/Vol] 94 mmol/L Low 98-107 [facility] Comment on above: Performed By: #### L [id number] ####[facility] ([facility])[address] [place] [address] CO2 [Moles/Vol] 23 mmol/L Normal 21-31 [facility] Comment on above: Performed By: #### L [id number] ####[facility] ([facility])[address] [place] [address] Creatinine [Mass/Vol] 1.58 mg/dL High 0.70-1.30 [facility] Comment on above: Performed By: #### L [id number] ####[facility] ([facility]ER)[address] [place] [address] GLOMERULAR FILTRATION RATE ML/MIN/1.73 SQ M.PREDICTED 47.1 mL/min/1.73m*2 Low >60.0 [facility] [place] Comment on above: Result Comment: The [facility]???s estimated glomerular filtration rate (eGFR) will [...] of individuals. Performed By: #### L [id number] ####[facility] ([facility])[address] [place] [address] Glucose [Mass/Vol] 81 mg/dL Normal 70-100 [facility] Comment on above: Performed By: #### L [id number] ####[facility] ([facility])[address] [place] [address] Potassium [Moles/Vol] 3.7 mmol/L Normal 3.5-5.1 [facility] Comment on above: Performed By: #### L [id number] ####[facility] ([facility])[address] [place] [address] Sodium [Moles/Vol] 128 mmol/L Low 136-145 [facility] Comment on above: Performed By: #### L [id number] ####[facility] ([facility])[address] [place] [address] Urea nitrogen [Mass/Vol] 25 mg/dL Normal 7-25 [facility] Comment on above: Performed By: #### L [id number] ####[facility] ([facility])[address] [place] [address] UREA NITROGEN/CREATININE (MASS RATIO) IN SER/PLAS 15.8 Normal [facility] Comment on above: Performed By: #### L [id number] ####[facility] ([facility])[address] [place] [address] CBC WITH AUTO DIFFERENTIALon 05-04-2025 Basophils (Bld) [#/Vol] 0.01 10*3/uL Normal 0.00-0.20 [facility] Comment on above: Performed By: #### L [id number] ####[facility] ([facility])[address] [place] [address] Basophils/100 WBC (Bld) 0.2 % Normal 0.0-1.0 [facility] Comment on above: Performed By: #### L [id number] ####[facility] ([facility])[address] [place] [address] Eosinophils (Bld) [#/Vol] 0.03 10*3/uL Normal 0.00-0.50 [facility] Comment on above: Performed By: #### L [id number] ####[facility] ([facility])[address] [place] [address] Eosinophils/100 WBC (Bld) 0.5 % Normal 0.0-6.0 [facility] Comment on above: Performed By: #### L [id number] ####[facility] ([facility])[address] [place] [address] Erythrocyte distribution width (RBC) [Ratio] 14.7 % Normal 11.5-15.0 [facility] Comment on above: Performed By: #### L [id number] ####[facility] ([facility])[address] [place] [address] ERYTHROCYTE MEAN CORPUSCULAR HEMOGLOBIN CONCENTRATION (G/DL) BY AUTOMATED 34.6 g/dL Normal 32.0-35.0 [facility] Comment on above: Performed By: #### L [id number] ####[facility] ([facility])[address] [place] [address] Hematocrit (Bld) [Volume fraction] 28.3 % Low 39.0-50.0 [facility] Comment on above: Performed By: #### L [id number] ####[facility] ([facility])[address] [place] [address] Hemoglobin (Bld) [Mass/Vol] 9.8 g/dL Low 13.0-17.0 [facility] Comment on above: Performed By: #### L [id number] ####[facility] ([facility])[address] [place] [address] Immature granulocytes (Bld) [#/Vol] 0.03 10*3/uL Normal 0.00-0.20 [facility] Comment on above: Performed By: #### L [id number] ####[facility] ([facility])[address] [place] [address] Immature granulocytes/100 WBC (Bld) 0.5 % Normal 0.0-1.0 [facility] Comment on above: Performed By: #### L [id number] ####[facility] ([facility])[address] [place] [address] Lymphocytes (Bld) [#/Vol] 0.86 10*3/uL Low 1.20-4.00 [facility] Comment on above: Performed By: #### L [id number] ####[facility] ([facility])[address] [place] [address] Lymphocytes/100 WBC (Bld) 14.2 % Low 20.0-45.0 [facility] Comment on above: Performed By: #### L [id number] ####[facility] ([facility])[address] [place] [address] MCH (RBC) [Entitic mass] 31.6 pg Normal 27.0-33.0 [facility] Comment on above: Performed By: #### L [id number] ####[facility] ([facility])[address] [place] [address] MCV (RBC) [Entitic vol] 91.3 fL Normal 82.0-98.0 [facility] Comment on above: Performed By: #### L [id number] ####[facility] ([facility])[address] [place] [address] Monocytes (Bld) [#/Vol] 0.86 10*3/uL Normal 0.10-1.00 [facility] Comment on above: Performed By: #### L [id number] ####[facility] ([facility]ER)[address] [place] [address] Monocytes/100 WBC (Bld) 14.2 % High 5.0-12.0 [facility] Comment on above: Performed By: #### L [id number] ####[facility] ([facility])[address] [place] [address] Neutrophils (Bld) [#/Vol] 4.25 10*3/uL Normal 1.60-7.60 [facility] Comment on above: Performed By: #### L [id number] ####[facility] ([facility])[address] [place] [address] Neutrophils/100 WBC (Bld) 70.4 % Normal 40.0-72.0 [facility] Comment on above: Performed By: #### L [id number] ####[facility] ([facility])[address] [place] [address] NRBC (PER 100 WBCS) BY AUTOMATED COUNT 0.0 % Normal 0 [facility] Comment on above: Performed By: #### L [id number] ####[facility] ([facility])[address] [place] [address] PLATELETS (10*3/UL) IN BLOOD AUTOMATED COUNT 192 10*3/uL Normal 150-400 [facility] Comment on above: Performed By: #### L [id number] ####[facility] ([facility])[address] [place] [address] RBC (Bld) [#/Vol] 3.10 10*6/uL Low 4.20-5.70 [facility] Comment on above: Performed By: #### L [id number] ####[facility] ([facility])[address] [place] [address] WBC (Bld) [#/Vol] 6.04 10*3/uL Normal 4.00-10.60 [facility] Comment on above: Performed By: #### L [id number] ####[facility] ([facility])[address] [place] [address] CONSULTon 10-17-2025 CONSULT Normal [facility] MAGNESIUMon 05-04-2025 Magnesium [Mass/Vol] 2.0 mg/dL Normal 1.9-2.7 [facility] Comment on above: Performed By: #### L [id number] ####[facility] ([facility])[address] [place] [address] NURSNOTEon 05-04-2025 NURSNOTE Normal [facility] NURSNOTE Normal [facility] PHOSPHORUSon 05-04-2025 Magnesium [Mass/Vol] 3.1 mg/dL Normal 2.5-5.0 [facility] Comment on above: Performed By: #### L [id number] ####[facility] ([facility])[address] [place] [address] 30on 05-03-2025 30 Normal [facility] 30 Normal [facility] BASIC METABOLIC PANELon 04-18 Anion gap [Moles/Vol] 14 mmol/L Normal 7-20 [facility] Comment on above: Performed By: #### L [id number] ####[facility] ([facility])[address] [place] [address] Calcium [Mass/Vol] 7.3 mg/dL Low 8.6-10.3 [facility] Comment on above: Performed By: #### L [id number] ####[facility] ([facility])[address] [place] [address] Chloride [Moles/Vol] 94 mmol/L Low 98-107 [facility] Comment on above: Performed By: #### L [id number] ####[facility] ([facility])[address] [place] [address] CO2 [Moles/Vol] 25 mmol/L Normal 21-31 [facility] Comment on above: Performed By: #### L [id number] ####[facility] ([facility])[address] [place] [address] Creatinine [Mass/Vol] 1.75 mg/dL High 0.70-1.30 [facility] Comment on above: Performed By: #### L [id number] ####[facility] ([facility])[address] [place] [address] GLOMERULAR FILTRATION RATE ML/MIN/1.73 SQ M.PREDICTED 41.6 mL/min/1.73m*2 Low >60.0 [facility] [place] Comment on above: Result Comment: The [facility]???s estimated glomerular filtration rate (eGFR) will [...] of individuals. Performed By: #### L [id number] ####[facility] ([facility])[address] [place] [address] Glucose [Mass/Vol] 89 mg/dL Normal 70-100 [facility] Comment on above: Performed By: #### L [id number] ####[facility] ([facility])[address] [place] [address] Potassium [Moles/Vol] 4.1 mmol/L Normal 3.5-5.1 [facility] Comment on above: Performed By: #### L [id number] ####[facility] ([facility])[address] [place] [address] Sodium [Moles/Vol] 129 mmol/L Low 136-145 [facility] Comment on above: Performed By: #### L [id number] ####[facility] ([facility])[address] [place] [address] Urea nitrogen [Mass/Vol] 24 mg/dL Normal 7-25 [facility] Comment on above: Performed By: #### L [id number] ####[facility] ([facility])[address] [place] [address] UREA NITROGEN/CREATININE (MASS RATIO) IN SER/PLAS 13.7 Normal [facility] Comment on above: Performed By: #### L [id number] ####[facility] ([facility])[address] [place] [address] BODY FLUID CULTUREon 025 Clindamycin [Susc] <=0.5 Susceptible Unive [facility] Comment on above: Order Comment: Rare Growth Skin Darlyn Performed By: #### L [id number] ####[facility] ([facility])[address] [place] [address] Oxacillin [Susc] <=0.25 Susceptible Univers [facility] Comment on above: Order Comment: Rare Growth Skin Darlyn Performed By: #### L [id number] ####[facility] ([facility])[address] [place] [address] Tetracycline [Susc] <=0.5 Susceptible Univ [facility] Comment on above: Order Comment: Rare Growth Skin Darlyn Performed By: #### L [id number] ####[facility] ([facility])[address] [place] [address] Vancomycin [Susc] <=0.5 Susceptible Univer [facility] Comment on above: Order Comment: Rare Growth Skin Darlyn Performed By: #### L [id number] ####[facility] ([facility])[address] [place] [address] CBC WITH AUTO DIFFERENTIALon 05-03-2025 Basophils (Bld) [#/Vol] 0.01 10*3/uL Normal 0.00-0.20 [facility] Comment on above: Performed By: #### L [id number] ####[facility] ([facility])[address] [place] [address] Basophils/100 WBC (Bld) 0.2 % Normal 0.0-1.0 [facility] Comment on above: Performed By: #### L [id number] ####[facility] ([facility])[address] [place] [address] Eosinophils (Bld) [#/Vol] 0.05 10*3/uL Normal 0.00-0.50 [facility] Comment on above: Performed By: #### L [id number] ####[facility] ([facility])[address] [place] [address] Eosinophils/100 WBC (Bld) 0.8 % Normal 0.0-6.0 [facility] Comment on above: Performed By: #### L [id number] ####[facility] ([facility])[address] [place] [address] Erythrocyte distribution width (RBC) [Ratio] 14.9 % Normal 11.5-15.0 [facility] Comment on above: Performed By: #### L [id number] ####[facility] ([facility])[address] [place] [address] ERYTHROCYTE MEAN CORPUSCULAR HEMOGLOBIN CONCENTRATION (G/DL) BY AUTOMATED 33.6 g/dL Normal 32.0-35.0 [facility] Comment on above: Performed By: #### L [id number] ####[facility] ([facility])[address] [place] [address] Hematocrit (Bld) [Volume fraction] 27.4 % Low 39.0-50.0 [facility] Comment on above: Performed By: #### L [id number] ####[facility] ([facility])[address] [place] [address] Hemoglobin (Bld) [Mass/Vol] 9.2 g/dL Low 13.0-17.0 [facility] Comment on above: Performed By: #### L [id number] ####[facility] ([facility])[address] [place] [address] Immature granulocytes (Bld) [#/Vol] 0.07 10*3/uL Normal 0.00-0.20 [facility] Comment on above: Performed By: #### L [id number] ####[facility] ([facility])[address] [place] [address] Immature granulocytes/100 WBC (Bld) 1.1 % High 0.0-1.0 [facility] Comment on above: Performed By: #### L [id number] ####[facility] ([facility])[address] [place] [address] Lymphocytes (Bld) [#/Vol] 0.98 10*3/uL Low 1.20-4.00 [facility] Comment on above: Performed By: #### L [id number] ####[facility] ([facility])[address] [place] [address] Lymphocytes/100 WBC (Bld) 15.8 % Low 20.0-45.0 [facility] Comment on above: Performed By: #### L [id number] ####[facility] ([facility])[address] [place] [address] MCH (RBC) [Entitic mass] 31.2 pg Normal 27.0-33.0 [facility] Comment on above: Performed By: #### L [id number] ####[facility] ([facility])[address] [place] [address] MCV (RBC) [Entitic vol] 92.9 fL Normal 82.0-98.0 [facility] Comment on above: Performed By: #### L [id number] ####[facility] ([facility])[address] [place] [address] Monocytes (Bld) [#/Vol] 1.00 10*3/uL Normal 0.10-1.00 [facility] Comment on above: Performed By: #### L [id number] ####[facility] ([facility])[address] [place] [address] Monocytes/100 WBC (Bld) 16.1 % High 5.0-12.0 [facility] Comment on above: Performed By: #### L [id number] ####[facility] ([facility])[address] [place] [address] Neutrophils (Bld) [#/Vol] 4.11 10*3/uL Normal 1.60-7.60 [facility] Comment on above: Performed By: #### L [id number] ####[facility] ([facility])[address] [place] [address] Neutrophils/100 WBC (Bld) 66.0 % Normal 40.0-72.0 [facility] Comment on above: Performed By: #### L [id number] ####[facility] ([facility])[address] [place] [address] NRBC (PER 100 WBCS) BY AUTOMATED COUNT 0.0 % Normal 0 [facility] Comment on above: Performed By: #### L [id number] ####[facility] ([facility])[address] [place] [address] PLATELETS (10*3/UL) IN BLOOD AUTOMATED COUNT 187 10*3/uL Normal 150-400 [facility] Comment on above: Performed By: #### L [id number] ####[facility] ([facility])[address] [place] [address] RBC (Bld) [#/Vol] 2.95 10*6/uL Low 4.20-5.70 [facility] Comment on above: Performed By: #### L [id number] ####[facility] ([facility])[address] [place] [address] WBC (Bld) [#/Vol] 6.22 10*3/uL Normal 4.00-10.60 [facility] Comment on above: Performed By: #### L [id number] ####[facility] ([facility])[address] [place] [address] NURSNOTEon 05-03-2025 NURSNOTE Normal [facility] NURSNOTE Normal [facility] NURSNOTE Normal [facility] PHOSPHORUSon 05-03-2025 Magnesium [Mass/Vol] 1.8 mg/dL Low 1.9-2.7 [facility] Comment on above: Performed By: #### L [id number] ####[facility] ([facility])[address] [place] [address] Performed By: #### L [id number] ####[facility] ([facility])[address] [place] [address] 30on 05-02-2025 30 The patient is Moderately Stable - Low risk of patient condition declining or worsening The patient's goals for the shift include comfort, rest The clinical goals for the shift include stable labs Normal [facility] 30 The patient is Moderately Unstable - Medium risk of patient condition declining or worsening The patient's goals for the shift include comfort, rest The clinical goals for the shift include stable labs Normal [facility] CBC WITH AUTO DIFFERENTIALon 05-02-2025 Basophils (Bld) [#/Vol] 0.01 10*3/uL Normal 0.00-0.20 [facility] Comment on above: Performed By: #### L [id number] ####[facility] ([facility])[address] [place] [address] Basophils/100 WBC (Bld) 0.2 % Normal 0.0-1.0 [facility] Comment on above: Performed By: #### L [id number] ####[facility] ([facility])[address] [place] [address] Eosinophils (Bld) [#/Vol] 0.02 10*3/uL Normal 0.00-0.50 [facility] Comment on above: Performed By: #### L [id number] ####[facility] ([facility])[address] [place] [address] Eosinophils/100 WBC (Bld) 0.3 % Normal 0.0-6.0 [facility] Comment on above: Performed By: #### L [id number] ####[facility] ([facility])[address] [place] [address] Erythrocyte distribution width (RBC) [Ratio] 15.1 % High 11.5-15.0 [facility] Comment on above: Performed By: #### L [id number] ####[facility] ([facility])[address] [place] [address] ERYTHROCYTE MEAN CORPUSCULAR HEMOGLOBIN CONCENTRATION (G/DL) BY AUTOMATED 34.1 g/dL Normal 32.0-35.0 [facility] Comment on above: Performed By: #### L [id number] ####[facility] ([facility])[address] [place] [address] Hematocrit (Bld) [Volume fraction] 24.6 % Low 39.0-50.0 [facility] Comment on above: Performed By: #### L [id number] ####[facility] ([facility])[address] [place] [address] Hemoglobin (Bld) [Mass/Vol] 8.4 g/dL Low 13.0-17.0 [facility] Comment on above: Performed By: #### L [id number] ####[facility] ([facility])[address] [place] [address] Immature granulocytes (Bld) [#/Vol] 0.05 10*3/uL Normal 0.00-0.20 [facility] Comment on above: Performed By: #### L [id number] ####[facility] ([facility])[address] [place] [address] Immature granulocytes/100 WBC (Bld) 0.8 % Normal 0.0-1.0 [facility] Comment on above: Performed By: #### L [id number] ####[facility] ([facility])[address] [place] [address] Lymphocytes (Bld) [#/Vol] 0.95 10*3/uL Low 1.20-4.00 [facility] Comment on above: Performed By: #### L [id number] ####[facility] ([facility])[address] [place] [address] Lymphocytes/100 WBC (Bld) 16.0 % Low 20.0-45.0 [facility] Comment on above: Performed By: #### L [id number] ####[facility] ([facility])[address] [place] [address] MCH (RBC) [Entitic mass] 31.9 pg Normal 27.0-33.0 [facility] Comment on above: Performed By: #### L [id number] ####[facility] ([facility])[address] [place] [address] MCV (RBC) [Entitic vol] 93.5 fL Normal 82.0-98.0 [facility] Comment on above: Performed By: #### L [id number] ####[facility] ([facility])[address] [place] [address] Monocytes (Bld) [#/Vol] 0.93 10*3/uL Normal 0.10-1.00 [facility] Comment on above: Performed By: #### L [id number] ####[facility] ([facility])[address] [place] [address] Monocytes/100 WBC (Bld) 15.7 % High 5.0-12.0 [facility] Comment on above: Performed By: #### L [id number] ####[facility] ([facility])[address] [place] [address] Neutrophils (Bld) [#/Vol] 3.98 10*3/uL Normal 1.60-7.60 [facility] Comment on above: Performed By: #### L [id number] ####[facility] ([facility])[address] [place], [place] [address] Neutrophils/100 WBC (Bld) 67.0 % Normal 40.0-72.0 [facility] Comment on above: Performed By: #### L [id number] ####[facility] ([facility])[address] [place] [address] NRBC (PER 100 WBCS) BY AUTOMATED COUNT 0.3 % High 0 [facility] Comment on above: Performed By: #### L [id number] ####[facility] ([facility])[address] [place] [address] PLATELETS (10*3/UL) IN BLOOD AUTOMATED COUNT 153 10*3/uL Normal 150-400 [facility] Comment on above: Performed By: #### L [id number] ####[facility] ([facility])[address] [place] [address] RBC (Bld) [#/Vol] 2.63 10*6/uL Low 4.20-5.70 [facility] Comment on above: Performed By: #### L [id number] ####[facility] ([facility])[address] [place] [address] WBC (Bld) [#/Vol] 5.94 10*3/uL Normal 4.00-10.60 [facility] Comment on above: Performed By: #### L [id number] ####[facility] ([facility])[address] [place] [address] COMPREHENSIVE METABOLIC PANE Conor 05-02-2025 Albumin [Mass/Vol] 3.1 g/dL Low 3.5-5.7 [facility] Comment on above: Performed By: #### L [id number] ####[facility] ([facility])[address] [place] [address] ALP [Catalytic activity/Vol] 60 U/L Normal 34-104 [facility] Comment on above: Performed By: #### L [id number] ####[facility] ([facility])[address] [place] [address] ALT [Catalytic activity/Vol] 129 U/L High 7-52 [facility] Comment on above: Performed By: #### L [id number] ####[facility] ([facility])[address] [place] [address] Anion gap [Moles/Vol] 10 mmol/L Normal 7-20 [facility] Comment on above: Performed By: #### L [id number] ####[facility] ([facility])[address] [place] [address] AST [Catalytic activity/Vol] 54 U/L High 13-39 [facility] Comment on above: Performed By: #### L [id number] ####[facility] ([facility])[address] [place] [address] Bilirubin [Mass/Vol] 0.7 mg/dL Normal 0.3-1.0 [facility] Comment on above: Performed By: #### L [id number] ####[facility] ([facility])[address] [place] [address] Calcium [Mass/Vol] 7.3 mg/dL Low 8.6-10.3 [facility] Comment on above: Performed By: #### L [id number] ####[facility] ([facility])[address] [place] [address] Chloride [Moles/Vol] 93 mmol/L Low 98-107 [facility] Comment on above: Performed By: #### L [id number] ####[facility] ([facility])[address] [place] [address] CO2 [Moles/Vol] 33 mmol/L High 21-31 [facility] Comment on above: Performed By: #### L [id number] ####[facility] ([facility])[address] [place] [address] Creatinine [Mass/Vol] 1.69 mg/dL High 0.70-1.30 [facility] Comment on above: Performed By: #### L [id number] ####[facility] ([facility])[address] [place] [address] GLOMERULAR FILTRATION RATE ML/MIN/1.73 SQ M.PREDICTED 43.4 mL/min/1.73m*2 Low >60.0 [facility] [place] Comment on above: Result Comment: The [facility]???s estimated glomerular filtration rate (eGFR) will [...] of individuals. Performed By: #### L [id number] ####[facility] ([facility])[address] [place] [address] Glucose [Mass/Vol] 105 mg/dL High 70-100 [facility] Comment on above: Performed By: #### L [id number] ####[facility] ([facility])[address] [place] [address] Potassium [Moles/Vol] 3.1 mmol/L Low 3.5-5.1 [facility] Comment on above: Performed By: #### L [id number] ####[facility] ([facility])[address] [place] [address] Protein [Mass/Vol] 5.4 g/dL Low 6.0-8.3 [facility] Comment on above: Performed By: #### L [id number] ####[facility] ([facility])[address] [place] [address] Sodium [Moles/Vol] 133 mmol/L Low 136-145 [facility] Comment on above: Performed By: #### L [id number] ####[facility] ([facility])[address] [place] [address] Urea nitrogen [Mass/Vol] 20 mg/dL Normal 7-25 [facility] Comment on above: Performed By: #### L [id number] ####[facility] ([facility])[address] [place] [address] UREA NITROGEN/CREATININE (MASS RATIO) IN SER/PLAS 11.8 Normal [facility] Comment on above: Performed By: #### L [id number] ####[facility] ([facility])[address] [place] [address] MAGNESIUMon 05-02-2025 Magnesium [Mass/Vol] 1.8 mg/dL Low 1.9-2.7 [facility] Comment on above: Performed By: #### L [id number] ####[facility] ([facility])[address] [place] [address] PHOSPHORUSon 05-02-2025 Magnesium [Mass/Vol] 2.5 mg/dL Normal 2.5-5.0 [facility] Comment on above: Performed By: #### L [id number] ####[facility] ([facility])[address] [place] [address] 30on 05-01-2025 30 The patient is Moderately Unstable - Medium risk of patient condition declining or worsening The patient's goals for the shift include Comfort, rest The clinical goals for the shift include VSS Normal [facility] BASIC METABOLIC PANELon 04-18 Anion gap [Moles/Vol] 9 mmol/L Normal 7-20 [facility] Comment on above: Performed By: #### L [id number] ####[facility])[address] [place] [address] Calcium [Mass/Vol] 7.7 mg/dL Low 8.6-10.3 [facility] Comment on above: Performed By: #### L [id number] ####[facility] ([facility])[address] [place] [address] Chloride [Moles/Vol] 96 mmol/L Low 98-107 [facility] Comment on above: Performed By: #### L [id number] ####[facility] ([facility])[address] [place] [address] CO2 [Moles/Vol] 35 mmol/L High 21-31 [facility] Comment on above: Performed By: #### L [id number] ####[facility] ([facility])[address] [place] [address] Creatinine [Mass/Vol] 1.01 mg/dL Normal 0.70-1.30 [facility] Comment on above: Performed By: #### L [id number] ####[facility] ([facility])[address] [place] [address] GLOMERULAR FILTRATION RATE ML/MIN/1.73 SQ M.PREDICTED 80.5 mL/min/1.73m*2 Normal >60.0 [facility] [place] Comment on above: Result Comment: The [facility]???s estimated glomerular filtration rate (eGFR) will [...] of individuals. Performed By: #### L [id number] ####[facility] ([facility])[address] [place] [address] Glucose [Mass/Vol] 99 mg/dL Normal 70-100 [facility] Comment on above: Performed By: #### L [id number] ####[facility] ([facility])[address] [place] [address] Potassium [Moles/Vol] 3.9 mmol/L Normal 3.5-5.1 [facility] Comment on above: Performed By: #### L [id number] ####[facility] ([facility])[address] [place] [address] Sodium [Moles/Vol] 136 mmol/L Normal 136-145 [facility] Comment on above: Performed By: #### L [id number] ####[facility] ([facility])[address] [place] [address] Urea nitrogen [Mass/Vol] 11 mg/dL Normal 7-25 [facility] Comment on above: Performed By: #### L [id number] ####[facility] ([facility])[address] [place] [address] UREA NITROGEN/CREATININE (MASS RATIO) IN SER/PLAS 10.9 Normal [facility] Comment on above: Performed By: #### L [id number] ####[facility] ([facility])[address] [place] [address] Anion gap [Moles/Vol] 11 mmol/L Normal 7-20 [facility] Comment on above: Performed By: #### L [id number] ####[facility] ([facility])[address] [place] [address] Calcium [Mass/Vol] 7.8 mg/dL Low 8.6-10.3 [facility] Comment on above: Performed By: #### L [id number] ####[facility] ([facility])[address] [place] [address] Chloride [Moles/Vol] 94 mmol/L Low 98-107 [facility] Comment on above: Performed By: #### L [id number] ####[facility] ([facility])[address] [place] [address] CO2 [Moles/Vol] 35 mmol/L High 21-31 [facility] Comment on above: Performed By: #### L [id number] ####[facility] ([facility])[address] [place] [address] Creatinine [Mass/Vol] 1.21 mg/dL Normal 0.70-1.30 [facility] Comment on above: Performed By: #### L [id number] ####[facility] ([facility])[address] [place] [address] GLOMERULAR FILTRATION RATE ML/MIN/1.73 SQ M.PREDICTED 64.8 mL/min/1.73m*2 Normal >60.0 [facility] [place] Comment on above: Result Comment: The [facility]???s estimated glomerular filtration rate (eGFR) will [...] of individuals. Performed By: #### L [id number] ####[facility] ([facility])[address] [place] [address] Glucose [Mass/Vol] 113 mg/dL High 70-100 [facility] Comment on above: Performed By: #### L [id number] ####[facility] ([facility])[address] [place] [address] Potassium [Moles/Vol] 3.8 mmol/L Normal 3.5-5.1 [facility] Comment on above: Performed By: #### L [id number] ####[facility] ([facility])[address] [place] [address] Sodium [Moles/Vol] 136 mmol/L Normal 136-145 [facility] Comment on above: Performed By: #### L [id number] ####[facility] ([facility])[address] [place] [address] Urea nitrogen [Mass/Vol] 13 mg/dL Normal 7-25 [facility] Comment on above: Performed By: #### L [id number] ####[facility] ([facility])[address] [place] [address] UREA NITROGEN/CREATININE (MASS RATIO) IN SER/PLAS 10.7 Normal [facility] Comment on above: Performed By: #### L [id number] ####[facility] ([facility])[address] [place] [address] CBC WITH AUTO DIFFERENTIALon 05-01-2025 Basophils (Bld) [#/Vol] 0.01 10*3/uL Normal 0.00-0.20 [facility] Comment on above: Performed By: #### L [id number] ####[facility] ([facility])[address] [place] [address] Basophils/100 WBC (Bld) 0.1 % Normal 0.0-1.0 [facility] Comment on above: Performed By: #### L [id number] ####[facility] ([facility])[address] [place] [address] Eosinophils (Bld) [#/Vol] 0.00 10*3/uL Normal 0.00-0.50 [facility] Comment on above: Performed By: #### L [id number] ####[facility] ([facility])[address] [place] [address] Eosinophils/100 WBC (Bld) 0.0 % Normal 0.0-6.0 [facility] Comment on above: Performed By: #### L [id number] ####[facility] ([facility])[address] [place] [address] Erythrocyte distribution width (RBC) [Ratio] 14.7 % Normal 11.5-15.0 [facility] Comment on above: Performed By: #### L [id number] ####[facility] ([facility])[address] [place] [address] ERYTHROCYTE MEAN CORPUSCULAR HEMOGLOBIN CONCENTRATION (G/DL) BY AUTOMATED 34.3 g/dL Normal 32.0-35.0 [facility] Comment on above: Performed By: #### L [id number] ####[facility] ([facility])[address] [place] [address] Hematocrit (Bld) [Volume fraction] 25.1 % Low 39.0-50.0 [facility] Comment on above: Performed By: #### L [id number] ####[facility] ([facility])[address] [place] [address] Hemoglobin (Bld) [Mass/Vol] 8.6 g/dL Low 13.0-17.0 [facility] Comment on above: Performed By: #### L [id number] ####[facility] ([facility])[address] [place] [address] Immature granulocytes (Bld) [#/Vol] 0.07 10*3/uL Normal 0.00-0.20 [facility] Comment on above: Performed By: #### L [id number] ####[facility] ([facility])[address] [place] [address] Immature granulocytes/100 WBC (Bld) 0.9 % Normal 0.0-1.0 [facility] Comment on above: Performed By: #### L [id number] ####[facility] ([facility])[address] [place] [address] Lymphocytes (Bld) [#/Vol] 0.50 10*3/uL Low 1.20-4.00 [facility] Comment on above: Performed By: #### L [id number] ####[facility] ([facility])[address] [place] [address] Lymphocytes/100 WBC (Bld) 6.8 % Low 20.0-45.0 [facility] Comment on above: Performed By: #### L [id number] ####[facility] ([facility])[address] [place] [address] MCH (RBC) [Entitic mass] 32.2 pg Normal 27.0-33.0 [facility] Comment on above: Performed By: #### L [id number] ####[facility] ([facility])[address] [place] [address] MCV (RBC) [Entitic vol] 94.0 fL Normal 82.0-98.0 [facility] Comment on above: Performed By: #### L [id number] ####[facility] ([facility])[address] [place] [address] Monocytes (Bld) [#/Vol] 0.91 10*3/uL Normal 0.10-1.00 [facility] Comment on above: Performed By: #### L [id number] ####[facility] ([facility])[address] [place] [address] Monocytes/100 WBC (Bld) 12.3 % High 5.0-12.0 [facility] Comment on above: Performed By: #### L [id number] ####[facility] ([facility])[address] [place] [address] Neutrophils (Bld) [#/Vol] 5.90 10*3/uL Normal 1.60-7.60 [facility] Comment on above: Performed By: #### L [id number] ####[facility] ([facility])[address] [place] [address] Neutrophils/100 WBC (Bld) 79.9 % High 40.0-72.0 [facility] Comment on above: Performed By: #### L [id number] ####[facility] ([facility])[address] [place] [address] NRBC (PER 100 WBCS) BY AUTOMATED COUNT 1.1 % High 0 [facility] Comment on above: Performed By: #### L [id number] ####[facility] ([facility])[address] [place] [address] PLATELETS (10*3/UL) IN BLOOD AUTOMATED COUNT 159 10*3/uL Normal 150-400 [facility] Comment on above: Performed By: #### L [id number] ####[facility] ([facility])[address] [place] [address] RBC (Bld) [#/Vol] 2.67 10*6/uL Low 4.20-5.70 [facility] Comment on above: Performed By: #### L [id number] ####[facility] ([facility])[address] [place] [address] WBC (Bld) [#/Vol] 7.39 10*3/uL Normal 4.00-10.60 [facility] Comment on above: Performed By: #### L [id number] ####[facility] ([facility])[address] [place] [address] COMPREHENSIVE METABOLIC PANE Conor 05-01-2025 Albumin [Mass/Vol] 3.4 g/dL Low 3.5-5.7 [facility] Comment on above: Performed By: #### L [id number] ####[facility] ([facility])[address] [place] [address] ALP [Catalytic activity/Vol] 65 U/L Normal 34-104 [facility] Comment on above: Performed By: #### L [id number] ####[facility] ([facility])[address] [place] [address] ALT [Catalytic activity/Vol] 182 U/L High 7-52 [facility] Comment on above: Performed By: #### L [id number] ####[facility] ([facility])[address] [place] [address] Anion gap [Moles/Vol] 10 mmol/L Normal 7-20 [facility] Comment on above: Performed By: #### L [id number] ####[facility] ([facility])[address] [place] [address] AST [Catalytic activity/Vol] 86 U/L High 13-39 [facility] Comment on above: Performed By: #### L [id number] ####[facility] ([facility])[address] [place] [address] Bilirubin [Mass/Vol] 0.9 mg/dL Normal 0.3-1.0 [facility] Comment on above: Performed By: #### L [id number] ####[facility] ([facility])[address] [place] [address] Calcium [Mass/Vol] 7.9 mg/dL Low 8.6-10.3 [facility] Comment on above: Performed By: #### L [id number] ####[facility] ([facility])[address] [place] [address] Chloride [Moles/Vol] 94 mmol/L Low 98-107 [facility] Comment on above: Performed By: #### L [id number] ####[facility] ([facility])[address] [place] [address] CO2 [Moles/Vol] 35 mmol/L High 21-31 [facility] Comment on above: Performed By: #### L [id number] ####[facility] ([facility])[address] [place] [address] Creatinine [Mass/Vol] 1.04 mg/dL Normal 0.70-1.30 [facility] Comment on above: Performed By: #### L [id number] ####[facility] ([facility])[address] [place] [address] GLOMERULAR FILTRATION RATE ML/MIN/1.73 SQ M.PREDICTED 77.7 mL/min/1.73m*2 Normal >60.0 [facility] Comment on above: Result Comment: The [facility]???s estimated glomerular filtration rate (eGFR) will [...] of individuals. Performed By: #### L [id number] ####[facility] ([facility])[address] [place] [address] Glucose [Mass/Vol] 115 mg/dL High 70-100 [facility] Comment on above: Performed By: #### L [id number] ####[facility] ([facility])[address] [place] [address] Potassium [Moles/Vol] 3.7 mmol/L Normal 3.5-5.1 [facility] Comment on above: Performed By: #### L [id number] ####[facility] ([facility])[address] [place] [address] Protein [Mass/Vol] 5.9 g/dL Low 6.0-8.3 [facility] Comment on above: Performed By: #### L [id number] ####[facility] ([facility])[address] [place] [address] Sodium [Moles/Vol] 135 mmol/L Low 136-145 [facility] Comment on above: Performed By: #### L [id number] ####[facility] ([facility])[address] [place] [address] Urea nitrogen [Mass/Vol] 12 mg/dL Normal 7-25 [facility] Comment on above: Performed By: #### L [id number] ####[facility] ([facility])[address] [place] [address] UREA NITROGEN/CREATININE (MASS RATIO) IN SER/PLAS 11.5 Normal [facility] Comment on above: Performed By: #### L [id number] ####[facility] ([facility])[address] [place] [address] MAGNESIUMon 05-01-2025 Magnesium [Mass/Vol] 1.9 mg/dL Normal 1.9-2.7 [facility] Comment on above: Performed By: #### L [id number] ####[facility] ([facility])[address] [place] [address] Magnesium [Mass/Vol] 2.0 mg/dL Normal 1.9-2.7 [facility] Comment on above: Performed By: #### L [id number] ####[facility] ([facility])[address] [place] [address] Magnesium [Mass/Vol] 2.1 mg/dL Normal 1.9-2.7 [facility] Comment on above: Performed By: #### L [id number] ####[facility] ([facility])[address] [place] [address] PHOSPHORUSon 05-01-2025 Magnesium [Mass/Vol] 2.4 mg/dL Low 2.5-5.0 [facility] Comment on above: Performed By: #### L [id number] ####[facility] ([facility])[address] [place] [address] Magnesium [Mass/Vol] 2.6 mg/dL Normal 2.5-5.0 [facility] Comment on above: Performed By: #### L [id number] ####[facility] ([facility])[address] [place] [address] Magnesium [Mass/Vol] 2.7 mg/dL Normal 2.5-5.0 [facility] Comment on above: Performed By: #### L [id number] ####[facility] ([facility])[address] [place] [address] 30on 04-30-2025 30 The patient is Moderately Unstable - Medium risk of patient condition declining or worsening The patient's goals for the shift include comfort The clinical goals for the shift include VSS Normal [facility] BASIC METABOLIC PANELon 10- Anion gap [Moles/Vol] 11 mmol/L Normal 7-20 [facility] Comment on above: Performed By: #### L [id number] ####[facility] ([facility])[address] [place] [address] Calcium [Mass/Vol] 7.9 mg/dL Low 8.6-10.3 [facility] Comment on above: Performed By: #### L [id number] ####[facility] ([facility])[address] [place] [address] Chloride [Moles/Vol] 94 mmol/L Low 98-107 [facility] Comment on above: Performed By: #### L [id number] ####[facility] ([facility])[address] [place] [address] CO2 [Moles/Vol] 34 mmol/L High 21-31 [facility] Comment on above: Performed By: #### L [id number] ####[facility] ([facility])[address] [place] [address] Creatinine [Mass/Vol] 1.19 mg/dL Normal 0.70-1.30 [facility] Comment on above: Performed By: #### L [id number] ####[facility] ([facility])[address] [place] [address] GLOMERULAR FILTRATION RATE ML/MIN/1.73 SQ M.PREDICTED 66.1 mL/min/1.73m*2 Normal >60.0 [facility] Comment on above: Result Comment: The [facility]???s estimated glomerular filtration rate (eGFR) will [...] of individuals. Performed By: #### L [id number] ####[facility] ([facility])[address] [place] [address] Glucose [Mass/Vol] 135 mg/dL High 70-100 [facility] Comment on above: Performed By: #### L [id number] ####[facility] ([facility])[address] [place] [address] Potassium [Moles/Vol] 3.5 mmol/L Normal 3.5-5.1 [facility] Comment on above: Performed By: #### L [id number] ####[facility] ([facility])[address] [place] [address] Sodium [Moles/Vol] 135 mmol/L Low 136-145 [facility] Comment on above: Performed By: #### L [id number] ####[facility] ([facility])[address] [place] [address] Urea nitrogen [Mass/Vol] 14 mg/dL Normal 7-25 [facility] Comment on above: Performed By: #### L [id number] ####[facility] ([facility])[address] [place] [address] UREA NITROGEN/CREATININE (MASS RATIO) IN SER/PLAS 11.8 Normal [facility] Comment on above: Performed By: #### L [id number] ####[facility] ([facility])[address] [place] [address] Anion gap [Moles/Vol] 10 mmol/L Normal 7-20 [facility] Comment on above: Performed By: #### L [id number] ####[facility] ([facility])[address] [place] [address] Calcium [Mass/Vol] 7.7 mg/dL Low 8.6-10.3 [facility] Comment on above: Performed By: #### L [id number] ####[facility] ([facility])[address] [place] [address] Chloride [Moles/Vol] 94 mmol/L Low 98-107 [facility] Comment on above: Performed By: #### L [id number] ####[facility] ([facility])[address] [place] [address] CO2 [Moles/Vol] 34 mmol/L High 21-31 [facility] Comment on above: Performed By: #### L [id number] ####[facility] ([facility])[address] [place] [address] Creatinine [Mass/Vol] 1.22 mg/dL Normal 0.70-1.30 [facility] Comment on above: Performed By: #### L [id number] ####[facility] ([facility])[address] [place] [address] GLOMERULAR FILTRATION RATE ML/MIN/1.73 SQ M.PREDICTED 64.2 mL/min/1.73m*2 Normal >60.0 [facility] Comment on above: Result Comment: The [facility]???s estimated glomerular filtration rate (eGFR) will [...] of individuals. Performed By: #### L [id number] ####[facility] ([facility])[address] [place] [address] Glucose [Mass/Vol] 141 mg/dL High 70-100 [facility] Comment on above: Performed By: #### L [id number] ####[facility] ([facility])[address] [place] [address] Potassium [Moles/Vol] 3.7 mmol/L Normal 3.5-5.1 [facility] Comment on above: Performed By: #### L [id number] ####[facility] ([facility])[address] [place] [address] Sodium [Moles/Vol] 134 mmol/L Low 136-145 [facility] Comment on above: Performed By: #### L [id number] ####[facility] ([facility])[address] [place] [address] Urea nitrogen [Mass/Vol] 15 mg/dL Normal 7-25 [facility] Comment on above: Performed By: #### L [id number] ####[facility] ([facility])[address] [place] [address] UREA NITROGEN/CREATININE (MASS RATIO) IN SER/PLAS 12.3 Normal [facility] Comment on above: Performed By: #### L [id number] ####[facility] ([facility])[address] [place] [address] Anion gap [Moles/Vol] 8 mmol/L Normal 7-20 [facility] Comment on above: Performed By: #### L [id number] ####[facility] ([facility])[address] [place] [address] Calcium [Mass/Vol] 7.6 mg/dL Low 8.6-10.3 [facility] Comment on above: Performed By: #### L [id number] ####[facility] ([facility])[address] [place] [address] Chloride [Moles/Vol] 95 mmol/L Low 98-107 [facility] Comment on above: Performed By: #### L [id number] ####[facility] ([facility])[address] [place] [address] CO2 [Moles/Vol] 35 mmol/L High 21-31 [facility] Comment on above: Performed By: #### L [id number] ####[facility] ([facility])[address] [place] [address] Creatinine [Mass/Vol] 1.27 mg/dL Normal 0.70-1.30 [facility] Comment on above: Performed By: #### L [id number] ####[facility] ([facility])[address] [place] [address] GLOMERULAR FILTRATION RATE ML/MIN/1.73 SQ M.PREDICTED 61.2 mL/min/1.73m*2 Normal >60.0 [facility] Comment on above: Result Comment: The [facility]???s estimated glomerular filtration rate (eGFR) will [...] of individuals. Performed By: #### L [id number] ####[facility] ([facility])[address] , [place] [address] Glucose [Mass/Vol] 133 mg/dL High 70-100 [facility] Comment on above: Performed By: #### L [id number] ####[facility] ([facility])[address] , [place] [address] Potassium [Moles/Vol] 3.8 mmol/L Normal 3.5-5.1 [facility] Comment on above: Performed By: #### L [id number] ####[facility] ([facility])[address] [place] [address] Sodium [Moles/Vol] 134 mmol/L Low 136-145 [facility] Comment on above: Performed By: #### L [id number] ####[facility] ([facility])[address] , [place] [address] Urea nitrogen [Mass/Vol] 16 mg/dL Normal 7-25 [facility] Comment on above: Performed By: #### L [id number] ####[facility] ([facility])[address] , [place] [address] UREA NITROGEN/CREATININE (MASS RATIO) IN SER/PLAS 12.6 Normal [facility] Comment on above: Performed By: #### L [id number] ####[facility] ([facility])[address] [place] [address] Anion gap [Moles/Vol] 9 mmol/L Normal 7-20 [facility] Comment on above: Performed By: #### L [id number] ####[facility] ([facility])[address] [place] [address] Calcium [Mass/Vol] 8.0 mg/dL Low 8.6-10.3 [facility] Comment on above: Performed By: #### L [id number] ####[facility] ([facility])[address] [place] [address] Chloride [Moles/Vol] 95 mmol/L Low 98-107 [facility] Comment on above: Performed By: #### L [id number] ####[facility] ([facility])[address] [place] [address] CO2 [Moles/Vol] 35 mmol/L High 21-31 [facility] Comment on above: Performed By: #### L [id number] ####[facility] ([facility])[address] [place] [address] Creatinine [Mass/Vol] 1.29 mg/dL Normal 0.70-1.30 [facility] Comment on above: Performed By: #### L [id number] ####[facility] ([facility])[address] [place] [address] GLOMERULAR FILTRATION RATE ML/MIN/1.73 SQ M.PREDICTED 60.0 mL/min/1.73m*2 Low >60.0 [facility] Comment on above: Result Comment: The [facility]???s estimated glomerular filtration rate (eGFR) will [...] of individuals. Performed By: #### L [id number] ####[facility] ([facility])[address] [place] [address] Glucose [Mass/Vol] 95 mg/dL Normal 70-100 [facility] Comment on above: Performed By: #### L [id number] ####[facility] ([facility])[address] [place] [address] Potassium [Moles/Vol] 3.7 mmol/L Normal 3.5-5.1 [facility] Comment on above: Performed By: #### L [id number] ####[facility] ([facility])[address] [place] [address] Sodium [Moles/Vol] 135 mmol/L Low 136-145 [facility] Comment on above: Performed By: #### L [id number] ####[facility] ([facility])[address] [place] [address] Urea nitrogen [Mass/Vol] 16 mg/dL Normal 7-25 [facility] Comment on above: Performed By: #### L [id number] ####[facility] ([facility])[address] [place] [address] UREA NITROGEN/CREATININE (MASS RATIO) IN SER/PLAS 12.4 Normal [facility] Comment on above: Performed By: #### L [id number] ####[facility] ([facility])[address] [place] [address] Anion gap [Moles/Vol] 10 mmol/L Normal 7-20 [facility] Comment on above: Performed By: #### L [id number] ####[facility] ([facility])[address] [place] [address] Calcium [Mass/Vol] 7.8 mg/dL Low 8.6-10.3 [facility] Comment on above: Performed By: #### L [id number] ####[facility] ([facility])[address] [place] [address] Chloride [Moles/Vol] 95 mmol/L Low 98-107 [facility] Comment on above: Performed By: #### L [id number] ####[facility] ([facility])[address] [place] [address] CO2 [Moles/Vol] 33 mmol/L High 21-31 [facility] Comment on above: Performed By: #### L [id number] ####[facility] ([facility])[address] [place] [address] Creatinine [Mass/Vol] 1.32 mg/dL High 0.70-1.30 [facility] Comment on above: Performed By: #### L [id number] ####[facility] ([facility])[address] [place] [address] GLOMERULAR FILTRATION RATE ML/MIN/1.73 SQ M.PREDICTED 58.4 mL/min/1.73m*2 Low >60.0 [facility] Comment on above: Result Comment: The [facility]???s estimated glomerular filtration rate (eGFR) will [...] of individuals. Performed By: #### L [id number] ####[facility] ([facility])[address] [place] [address] Glucose [Mass/Vol] 103 mg/dL High 70-100 [facility] Comment on above: Performed By: #### L [id number] ####[facility] (BEAKER)[address] [place] [address] Potassium [Moles/Vol] 3.6 mmol/L Normal 3.5-5.1 [facility] Comment on above: Performed By: #### L [id number] ####[facility] (BEAKER)[address] [place] [address] Sodium [Moles/Vol] 134 mmol/L Low 136-145 [facility] Comment on above: Performed By: #### L [id number] ####[facility] ([facility])[address] [place] [address] Urea nitrogen [Mass/Vol] 18 mg/dL Normal 7-25 [facility] Comment on above: Performed By: #### L [id number] ####[facility] ([facility])[address] [place] [address] UREA NITROGEN/CREATININE (MASS RATIO) IN SER/PLAS 13.6 Normal [facility] Comment on above: Performed By: #### L [id number] ####[facility] ([facility])[address] [place] [address] CBC WITH AUTO DIFFERENTIALon 04-30-2025 Basophils (Bld) [#/Vol] 0.01 10*3/uL Normal 0.00-0.20 [facility] [facility] Comment on above: Performed By: #### L [id number] ####[facility] ([facility])[address] [place] [address] Basophils/100 WBC (Bld) 0.1 % Normal 0.0-1.0 [facility] Comment on above: Performed By: #### L [id number] ####[facility] ([facility])[address] [place] [address] Eosinophils (Bld) [#/Vol] 0.01 10*3/uL Normal 0.00-0.50 [facility] Comment on above: Performed By: #### L [id number] ####[facility] ([facility])[address] [place] [address] Eosinophils/100 WBC (Bld) 0.1 % Normal 0.0-6.0 [facility] Comment on above: Performed By: #### L [id number] ####[facility] ([facility])[address] [place] [address] Erythrocyte distribution width (RBC) [Ratio] 14.7 % Normal 11.5-15.0 [facility] Comment on above: Performed By: #### L [id number] ####[facility] ([facility])[address] [place] [address] ERYTHROCYTE MEAN CORPUSCULAR HEMOGLOBIN CONCENTRATION (G/DL) BY AUTOMATED 34.3 g/dL Normal 32.0-35.0 [facility] Comment on above: Performed By: #### L [id number] ####[facility] ([facility])[address] [place] [address] Hematocrit (Bld) [Volume fraction] 23.9 % Low 39.0-50.0 [facility] Comment on above: Performed By: #### L [id number] ####[facility] ([facility])[address] [place] [address] Hemoglobin (Bld) [Mass/Vol] 8.2 g/dL Low 13.0-17.0 [facility] Comment on above: Performed By: #### L [id number] ####[facility] ([facility])[address] [place] [address] Immature granulocytes (Bld) [#/Vol] 0.05 10*3/uL Normal 0.00-0.20 [facility] Comment on above: Performed By: #### L [id number] ####[facility] ([facility])[address] [place] [address] Immature granulocytes/100 WBC (Bld) 0.6 % Normal 0.0-1.0 [facility] Comment on above: Performed By: #### L [id number] ####[facility] ([facility])[address] [place] [address] Lymphocytes (Bld) [#/Vol] 0.68 10*3/uL Low 1.20-4.00 [facility] Comment on above: Performed By: #### L [id number] ####[facility] ([facility])[address] [place] [address] Lymphocytes/100 WBC (Bld) 7.8 % Low 20.0-45.0 [facility] Comment on above: Performed By: #### L [id number] ####[facility] ([facility])[address] [place] [address] MCH (RBC) [Entitic mass] 31.8 pg Normal 27.0-33.0 [facility] Comment on above: Performed By: #### L [id number] ####[facility] ([facility])[address] [place] [address] MCV (RBC) [Entitic vol] 92.6 fL Normal 82.0-98.0 [facility] Comment on above: Performed By: #### L [id number] ####[facility] ([facility])[address] [place] [address] Monocytes (Bld) [#/Vol] 0.87 10*3/uL Normal 0.10-1.00 [facility] Comment on above: Performed By: #### L [id number] ####[facility] ([facility])[address] [place] [address] Monocytes/100 WBC (Bld) 9.9 % Normal 5.0-12.0 [facility] Comment on above: Performed By: #### L [id number] ####[facility] ([facility])[address] [place] [address] Neutrophils (Bld) [#/Vol] 7.15 10*3/uL Normal 1.60-7.60 [facility] Comment on above: Performed By: #### L [id number] ####[facility] ([facility])[address] [place] [address] Neutrophils/100 WBC (Bld) 81.5 % High 40.0-72.0 [facility] Comment on above: Performed By: #### L [id number] ####[facility] ([facility])[address] [place] [address] NRBC (PER 100 WBCS) BY AUTOMATED COUNT 1.1 % High 0 [facility] Comment on above: Performed By: #### L [id number] ####[facility] ([facility])[address] [place] [address] PLATELETS (10*3/UL) IN BLOOD AUTOMATED COUNT 143 10*3/uL Low 150-400 [facility] Comment on above: Performed By: #### L [id number] ####[facility] ([facility])[address] [place] [address] RBC (Bld) [#/Vol] 2.58 10*6/uL Low 4.20-5.70 [facility] Comment on above: Performed By: #### L [id number] ####[facility] ([facility])[address] [place] [address] WBC (Bld) [#/Vol] 8.77 10*3/uL Normal 4.00-10.60 [facility] Comment on above: Performed By: #### L [id number] ####[facility] ([facility])[address] [place] [address] COMPREHENSIVE METABOLIC PANE Conor 04-30-2025 Albumin [Mass/Vol] 3.2 g/dL Low 3.5-5.7 [facility] Comment on above: Performed By: #### L [id number] ####[facility] ([facility])[address] [place] [address] ALP [Catalytic activity/Vol] 54 U/L Normal 34-104 [facility] Comment on above: Performed By: #### L [id number] ####[facility] ([facility])[address] [place] [address] ALT [Catalytic activity/Vol] 211 U/L High 7-52 [facility] Comment on above: Performed By: #### L [id number] ####[facility] ([facility])[address] [place] [address] Anion gap [Moles/Vol] 9 mmol/L Normal 7-20 [facility] Comment on above: Performed By: #### L [id number] ####[facility] ([facility])[address] [place] [address] AST [Catalytic activity/Vol] 119 U/L High 13-39 [facility] Comment on above: Performed By: #### L [id number] ####[facility] ([facility])[address] [place] [address] Bilirubin [Mass/Vol] 0.8 mg/dL Normal 0.3-1.0 [facility] Comment on above: Performed By: #### L [id number] ####[facility] ([facility])[address] [place] [address] Calcium [Mass/Vol] 8.0 mg/dL Low 8.6-10.3 [facility] Comment on above: Performed By: #### L [id number] ####[facility] ([facility])[address] [place] [address] Chloride [Moles/Vol] 94 mmol/L Low 98-107 [facility] Comment on above: Performed By: #### L [id number] ####[facility] ([facility])[address] [place] [address] CO2 [Moles/Vol] 35 mmol/L High 21-31 [facility] Comment on above: Performed By: #### L [id number] ####[facility] ([facility])[address] [place] [address] Creatinine [Mass/Vol] 1.21 mg/dL Normal 0.70-1.30 [facility] Comment on above: Performed By: #### L [id number] ####[facility] ([facility])[address] [place] [address] GLOMERULAR FILTRATION RATE ML/MIN/1.73 SQ M.PREDICTED 64.8 mL/min/1.73m*2 Normal >60.0 [facility] Comment on above: Result Comment: The [facility]???s estimated glomerular filtration rate (eGFR) will [...] of individuals. Performed By: #### L [id number] ####[facility] ([facility])[address] [place] [address] Glucose [Mass/Vol] 100 mg/dL Normal 70-100 [facility] Comment on above: Performed By: #### L [id number] ####[facility] ([facility])[address] [place] [address] Potassium [Moles/Vol] 3.5 mmol/L Normal 3.5-5.1 [facility] Comment on above: Performed By: #### L [id number] ####[facility] ([facility])[address] [place] [address] Protein [Mass/Vol] 5.6 g/dL Low 6.0-8.3 [facility] Comment on above: Performed By: #### L [id number] ####[facility] ([facility])[address] [place] [address] Sodium [Moles/Vol] 134 mmol/L Low 136-145 [facility] Comment on above: Performed By: #### L [id number] ####[facility] ([facility])[address] [place] [address] Urea nitrogen [Mass/Vol] 16 mg/dL Normal 7-25 [facility] Comment on above: Performed By: #### L [id number] ####[facility] ([facility])[address] [place] [address] UREA NITROGEN/CREATININE (MASS RATIO) IN SER/PLAS 13.2 [facility] Comment on above: Performed By: #### L [id number] ####[facility] ([facility])[address] [place] [address] CONSULTon 04-30-2025 CONSULT [facility] MAGNESIUMon 04-30-2025 Magnesium [Mass/Vol] 1.8 mg/dL Low 1.9-2.7 [facility] Comment on above: Performed By: #### L [id number] ####[facility] ([facility])[address] [place] [address] Magnesium [Mass/Vol] 1.9 mg/dL Normal 1.9-2.7 [facility] Comment on above: Performed By: #### L [id number] ####[facility] ([facility])[address] [place] [address] Magnesium [Mass/Vol] 1.9 mg/dL Normal 1.9-2.7 [facility] Comment on above: Performed By: #### L [id number] ####[facility] ([facility])[address] [place] [address] Magnesium [Mass/Vol] 2.0 mg/dL Normal 1.9-2.7 [facility] Comment on above: Performed By: #### L [id number] ####[facility] ([facility])[address] [place] [address] Magnesium [Mass/Vol] 2.0 mg/dL Normal 1.9-2.7 [facility] Comment on above: Performed By: #### L [id number] ####[facility] ([facility])[address] [place] [address] Magnesium [Mass/Vol] 2.0 mg/dL Normal 1.9-2.7 [facility] Comment on above: Performed By: #### L [id number] ####[facility] ([facility])[address] [place] [address] PHOSPHORUSon 04-30-2025 Magnesium [Mass/Vol] 2.2 mg/dL Low 2.5-5.0 [facility] Comment on above: Performed By: #### L [id number] ####[facility] ([facility])[address] [place] [address] Magnesium [Mass/Vol] 2.3 mg/dL Low 2.5-5.0 [facility] Comment on above: Performed By: #### L [id number] ####[facility] ([facility])[address] [place] [address] Magnesium [Mass/Vol] 1.7 mg/dL Low 2.5-5.0 [facility] Comment on above: Performed By: #### L [id number] ####[facility] ([facility])[address] [place] [address] Magnesium [Mass/Vol] 1.8 mg/dL Low 2.5-5.0 [facility] Comment on above: Performed By: #### L [id number] ####[facility] ([facility])[address] [place] [address] Magnesium [Mass/Vol] 1.8 mg/dL Low 2.5-5.0 [facility] Comment on above: Performed By: #### L [id number] ####[facility] ([facility])[address] [place] [address] Magnesium [Mass/Vol] 2.1 mg/dL Low 2.5-5.0 [facility] Comment on above: Performed By: #### L [id number] ####[facility] ([facility])[address] [place] [address] AMMONIAon 04-29-2025 AMMONIA (UMOL/L) IN PLASMA 56 umol/L Normal 18-72 [facility] Comment on above: Performed By: #### L [id number] ####[facility] ([facility])[address] [place] [address] BASIC METABOLIC PANELon 04-18 Anion gap [Moles/Vol] 10 mmol/L Normal 7-20 [facility] Comment on above: Performed By: #### L [id number] ####[facility] ([facility])[address] [place] [address] Calcium [Mass/Vol] 7.7 mg/dL Low 8.6-10.3 [facility] Comment on above: Performed By: #### L [id number] ####[facility] ([facility])[address] [place] [address] Chloride [Moles/Vol] 95 mmol/L Low 98-107 [facility] Comment on above: Performed By: #### L [id number] ####[facility] ([facility])[address] [place] [address] CO2 [Moles/Vol] 33 mmol/L High 21-31 [facility] Comment on above: Performed By: #### L [id number] ####[facility] ([facility]ER)[address] [place] [address] Creatinine [Mass/Vol] 1.46 mg/dL High 0.70-1.30 [facility] Comment on above: Performed By: #### L [id number] ####[facility] ([facility])[address] [place] [address] GLOMERULAR FILTRATION RATE ML/MIN/1.73 SQ M.PREDICTED 51.7 mL/min/1.73m*2 Low >60.0 [facility] Comment on above: Result Comment: The [facility]???s estimated glomerular filtration rate (eGFR) will [...] of individuals. Performed By: #### L [id number] ####[facility] ([facility])[address] [place] [address] Glucose [Mass/Vol] 114 mg/dL High 70-100 [facility] Comment on above: Performed By: #### L [id number] ####[facility] ([facility])[address] [place] [address] Potassium [Moles/Vol] 3.6 mmol/L Normal 3.5-5.1 [facility] Comment on above: Performed By: #### L [id number] ####[facility] ([facility])[address] [place] [address] Sodium [Moles/Vol] 134 mmol/L Low 136-145 [facility] Comment on above: Performed By: #### L [id number] ####[facility] ([facility])[address] [place] [address] Urea nitrogen [Mass/Vol] 20 mg/dL Normal 7-25 [facility] Comment on above: Performed By: #### L [id number] ####[facility] ([facility])[address] [place] [address] UREA NITROGEN/CREATININE (MASS RATIO) IN SER/PLAS 13.7 Normal [facility] Comment on above: Performed By: #### L [id number] ####[facility] ([facility])[address] [place] [address] Anion gap [Moles/Vol] 12 mmol/L Normal 7-20 [facility] Comment on above: Performed By: #### L [id number] ####[facility] ([facility])[address] [place] [address] Calcium [Mass/Vol] 8.0 mg/dL Low 8.6-10.3 [facility] Comment on above: Performed By: #### L [id number] ####[facility] ([facility])[address] [place] [address] Chloride [Moles/Vol] 93 mmol/L Low 98-107 [facility] Comment on above: Performed By: #### L [id number] ####[facility] ([facility])[address] [place] [address] CO2 [Moles/Vol] 32 mmol/L High 21-31 [facility] Comment on above: Performed By: #### L [id number] ####[facility] ([facility])[address] [place] [address] Creatinine [Mass/Vol] 1.47 mg/dL High 0.70-1.30 [facility] Comment on above: Performed By: #### L [id number] ####[facility] ([facility])[address] [place] [address] GLOMERULAR FILTRATION RATE ML/MIN/1.73 SQ M.PREDICTED 51.3 mL/min/1.73m*2 Low >60.0 [facility] Comment on above: Result Comment: The [facility]???s estimated glomerular filtration rate (eGFR) will [...] of individuals. Performed By: #### L [id number] ####[facility] ([facility])[address] [place] [address] Glucose [Mass/Vol] 113 mg/dL High 70-100 [facility] Comment on above: Performed By: #### L [id number] ####[facility] ([facility])[address] [place] [address] Potassium [Moles/Vol] 3.6 mmol/L Normal 3.5-5.1 [facility] Comment on above: Performed By: #### L [id number] ####[facility] ([facility])[address] [place] [address] Sodium [Moles/Vol] 133 mmol/L Low 136-145 [facility] Comment on above: Performed By: #### L [id number] ####[facility] ([facility])[address] [place] [address] Urea nitrogen [Mass/Vol] 21 mg/dL Normal 7-25 [facility] Comment on above: Performed By: #### L [id number] ####[facility] ([facility])[address] [place] [address] UREA NITROGEN/CREATININE (MASS RATIO) IN SER/PLAS 14.3 Normal [facility] Comment on above: Performed By: #### L [id number] ####[facility] ([facility])[address] [place] [address] Anion gap [Moles/Vol] 11 mmol/L Normal 7-20 [facility] Comment on above: Performed By: #### L [id number] ####[facility] ([facility])[address] [place] [address] Calcium [Mass/Vol] 8.0 mg/dL Low 8.6-10.3 [facility] Comment on above: Performed By: #### L [id number] ####[facility] ([facility])[address] [place] [address] Chloride [Moles/Vol] 94 mmol/L Low 98-107 [facility] Comment on above: Performed By: #### L [id number] ####[facility] ([facility])[address] [place] [address] CO2 [Moles/Vol] 32 mmol/L High 21-31 [facility] Comment on above: Performed By: #### L [id number] ####[facility] ([facility])[address] [place] [address] Creatinine [Mass/Vol] 1.69 mg/dL High 0.70-1.30 [facility] Comment on above: Performed By: #### L [id number] ####[facility] ([facility])[address] [place] [address] GLOMERULAR FILTRATION RATE ML/MIN/1.73 SQ M.PREDICTED 43.4 mL/min/1.73m*2 Low >60.0 [facility] Comment on above: Result Comment: The [facility]???s estimated glomerular filtration rate (eGFR) will [...] of individuals. Performed By: #### L [id number] ####[facility] ([facility])[address] [place] [address] Glucose [Mass/Vol] 108 mg/dL High 70-100 [facility] Comment on above: Performed By: #### L [id number] ####[facility] ([facility])[address] [place] [address] Potassium [Moles/Vol] 3.5 mmol/L Normal 3.5-5.1 [facility] Comment on above: Performed By: #### L [id number] ####[facility] ([facility])[address] [place] [address] Sodium [Moles/Vol] 133 mmol/L Low 136-145 [facility] Comment on above: Performed By: #### L [id number] ####[facility] ([facility])[address] [place] [address] Urea nitrogen [Mass/Vol] 23 mg/dL Normal 7-25 [facility] Comment on above: Performed By: #### L [id number] ####[facility] ([facility])[address] [place] [address] UREA NITROGEN/CREATININE (MASS RATIO) IN SER/PLAS 13.6 Normal [facility] Comment on above: Performed By: #### L [id number] ####[facility] ([facility])[address] [place] [address] Anion gap [Moles/Vol] 10 mmol/L Normal 7-20 [facility] Comment on above: Performed By: #### L [id number] ####[facility] ([facility])[address] [place] [address] Calcium [Mass/Vol] 7.8 mg/dL Low 8.6-10.3 [facility] Comment on above: Performed By: #### L [id number] ####[facility] ([facility])[address] [place] [address] Chloride [Moles/Vol] 95 mmol/L Low 98-107 [facility] Comment on above: Performed By: #### L [id number] ####[facility] ([facility])[address] [place] [address] CO2 [Moles/Vol] 32 mmol/L High 21-31 [facility] Comment on above: Performed By: #### L [id number] ####[facility] ([facility])[address] [place] [address] Creatinine [Mass/Vol] 1.72 mg/dL High 0.70-1.30 [facility] Comment on above: Performed By: #### L [id number] ####[facility] ([facility])[address] [place] [address] GLOMERULAR FILTRATION RATE ML/MIN/1.73 SQ M.PREDICTED 42.5 mL/min/1.73m*2 Low >60.0 [facility] Comment on above: Result Comment: The [facility]???s estimated glomerular filtration rate (eGFR) will [...] of individuals. Performed By: #### L [id number] ####[facility] ([facility])[address] [place] [address] Glucose [Mass/Vol] 108 mg/dL High 70-100 [facility] Comment on above: Performed By: #### L [id number] ####[facility] ([facility])[address] [place] [address] Potassium [Moles/Vol] 3.6 mmol/L Normal 3.5-5.1 [facility] Comment on above: Performed By: #### L [id number] ####[facility] ([facility])[address] [place] [address] Sodium [Moles/Vol] 133 mmol/L Low 136-145 [facility] Comment on above: Performed By: #### L [id number] ####[facility] ([facility])[address] [place] [address] Urea nitrogen [Mass/Vol] 25 mg/dL Normal 7-25 [facility] Comment on above: Performed By: #### L [id number] ####[facility] ([facility])[address] [place] [address] UREA NITROGEN/CREATININE (MASS RATIO) IN SER/PLAS 14.5 Normal [facility] Comment on above: Performed By: #### L [id number] ####[facility] ([facility])[address] [place] [address] Anion gap [Moles/Vol] 13 mmol/L Normal 7-20 [facility] Comment on above: Performed By: #### L [id number] ####[facility] ([facility])[address] [place] [address] Calcium [Mass/Vol] 7.1 mg/dL Low 8.6-10.3 [facility] Comment on above: Performed By: #### L [id number] ####[facility] ([facility])[address] [place] [address] Chloride [Moles/Vol] 97 mmol/L Low 98-107 [facility] Comment on above: Performed By: #### L [id number] ####[facility] ([facility])[address] [place] [address] CO2 [Moles/Vol] 26 mmol/L Normal 21-31 [facility] Comment on above: Performed By: #### L [id number] ####[facility] ([facility])[address] [place] [address] Creatinine [Mass/Vol] 2.17 mg/dL High 0.70-1.30 [facility] Comment on above: Performed By: #### L [id number] ####[facility] ([facility])[address] [place] [address] GLOMERULAR FILTRATION RATE ML/MIN/1.73 SQ M.PREDICTED 32.2 mL/min/1.73m*2 Low >60.0 [facility] [place] Comment on above: Result Comment: The [facility]???s estimated glomerular filtration rate (eGFR) will [...] of individuals. Performed By: #### L [id number] ####[facility] ([facility])[address] [place] [address] Glucose [Mass/Vol] 111 mg/dL High 70-100 [facility] Comment on above: Performed By: #### L [id number] ####[facility] ([facility])[address] [place] [address] Potassium [Moles/Vol] 3.6 mmol/L Normal 3.5-5.1 [facility] Comment on above: Performed By: #### L [id number] ####[facility] ([facility])[address] [place] [address] Sodium [Moles/Vol] 132 mmol/L Low 136-145 [facility] Comment on above: Performed By: #### L [id number] ####[facility] ([facility])[address] [place] [address] Urea nitrogen [Mass/Vol] 32 mg/dL High 7-25 [facility] Comment on above: Performed By: #### L [id number] ####[facility] ([facility])[address], [place] [address] UREA NITROGEN/CREATININE (MASS RATIO) IN SER/PLAS 14.7 Normal [facility] Comment on above: Performed By: #### L [id number] ####[facility] ([facility]AKER)[address] [place] [address] Anion gap [Moles/Vol] 13 mmol/L Normal 7-20 [facility] Comment on above: Performed By: #### L [id number] ####[facility] ([facility])[address] [place] [address] Calcium [Mass/Vol] 7.2 mg/dL Low 8.6-10.3 [facility] Comment on above: Performed By: #### L [id number] ####[facility] ([facility])[address] [place] [address] Chloride [Moles/Vol] 97 mmol/L Low 98-107 [facility] Comment on above: Performed By: #### L [id number] ####[facility] (BEAKER)[address] [place] [address] CO2 [Moles/Vol] 26 mmol/L Normal 21-31 [facility] Comment on above: Performed By: #### L [id number] ####[facility] ([facility])[address] [place] [address] Creatinine [Mass/Vol] 2.37 mg/dL High 0.70-1.30 [facility] Comment on above: Performed By: #### L [id number] ####[facility] ([facility])[address] [place] [address] GLOMERULAR FILTRATION RATE ML/MIN/1.73 SQ M.PREDICTED 28.9 mL/min/1.73m*2 Low >60.0 [facility] Comment on above: Result Comment: The [facility]???s estimated glomerular filtration rate (eGFR) will [...] of individuals. Performed By: #### L [id number] ####[facility] (BEAKER)[address] [place] [address] Glucose [Mass/Vol] 108 mg/dL High 70-100 [facility] Comment on above: Performed By: #### L [id number] ####[facility] ([facility]ER)[address] [place] [address] Potassium [Moles/Vol] 3.5 mmol/L Normal 3.5-5.1 [facility] Comment on above: Performed By: #### L [id number] ####[facility] (BEAKER)[address] [place] [address] Sodium [Moles/Vol] 132 mmol/L Low 136-145 [facility] Comment on above: Performed By: #### L [id number] ####[facility] ([facility]ER)[address] [place] [address] Urea nitrogen [Mass/Vol] 33 mg/dL High 7-25 [facility] Comment on above: Performed By: #### L [id number] ####[facility] ([facility]ER)[address] [place] [address] UREA NITROGEN/CREATININE (MASS RATIO) IN SER/PLAS 13.9 Normal [facility] Comment on above: Performed By: #### L [id number] ####[facility] ([facility]ER)[address] [place] [address] BLOOD GAS, VENOUSon 04-29-20 25 CO2 (BldV) [Partial pressure] 48 mm[Hg] Normal 40-50 [facility] Comment on above: Performed By: #### L [id number] ####[facility] [id number] [place] [address] [place] HCO3 (Bld) [Moles/Vol] 31.9 mmol/L Normal [facility] Comment on above: Performed By: #### L [id number] ####[facility] [id number] [place] [address] [place] Oxygen (BldV) [Partial pressure] 35 mm[Hg] Normal 35-45 [facility] Comment on above: Performed By: #### L [id number] ####[facility] [id number] [place] [address] [facility] OXYGEN SATURATION (%) IN VENOUS BLOOD 56.1 % Low 65.0-75.0 [facility] Comment on above: Performed By: #### L [id number] ####[facility] [id number] [place] [address] [facility] OXYGENATED HEMOGLOBIN, VENOUS 55.6 % Normal [facility] Comment on above: Performed By: #### L [id number] ####[facility] [id number] [place] [address] [facility] PCO2 VENOUS TEMP ADJUSTED 48 mmHg Normal 40-50 [facility] Comment on above: Performed By: #### L [id number] ####[facility] [id number] [place] [address] [facility] PH OF VENOUS BLOOD 7.43 High 7.31-7.41 [facility] Comment on above: Performed By: #### L [id number] ####[facility] [id number] [place] [address] [facility] PH VENOUS TEMP ADJUSTED 7.43 High 7.31-7.41 [facility] Comment on above: Performed By: #### L [id number] ####[facility] [id number] [place] [address] [facility] PO2 VENOUS TEMP ADJUSTED 35 mmHg Normal 35-45 [facility] Comment on above: Performed By: #### L [id number] ####[facility] [id number] [place] [address] [facility] TEMPERATURE 37.0 ???C Normal [facility] Comment on above: Performed By: #### L [id number] ####[facility] [id number] [place] [address] [facility] CBC WITH AUTO DIFFERENTIALon 04-29-2025 Basophils (Bld) [#/Vol] 0.01 10*3/uL Normal 0.00-0.20 [facility] Comment on above: Performed By: #### L [id number] ####[facility] ([facility])[address] [place] [address] Basophils/100 WBC (Bld) 0.1 % Normal 0.0-1.0 [facility] Comment on above: Performed By: #### L [id number] ####[facility] ([facility]AKER)[address] [place] [address] Eosinophils (Bld) [#/Vol] 0.00 10*3/uL Normal 0.00-0.50 [facility] Comment on above: Performed By: #### L [id number] ####[facility] (BEAKER)[address] [place], [place] [address] Eosinophils/100 WBC (Bld) 0.0 % Normal 0.0-6.0 [facility] Comment on above: Performed By: #### L [id number] ####[facility] (BE[facility]ER)[address] [place] [address] Erythrocyte distribution width (RBC) [Ratio] 14.5 % Normal 11.5-15.0 [facility] Comment on above: Performed By: #### L [id number] ####[facility] ([facility]ER)[address] [place] [address] ERYTHROCYTE MEAN CORPUSCULAR HEMOGLOBIN CONCENTRATION (G/DL) BY AUTOMATED 35.5 g/dL High 32.0-35.0 [facility] Comment on above: Performed By: #### L [id number] ####[facility] (BE[facility]ER)[address] [place] [address] Hematocrit (Bld) [Volume fraction] 23.4 % Low 39.0-50.0 [facility] Comment on above: Performed By: #### L [id number] ####[facility] ([facility]ER)[address] [place] [address] Hemoglobin (Bld) [Mass/Vol] 8.3 g/dL Low 13.0-17.0 [facility] Comment on above: Performed By: #### L [id number] ####[facility] ([facility]AKER)[address] [place] [address] Immature granulocytes (Bld) [#/Vol] 0.07 10*3/uL Normal 0.00-0.20 [facility] Comment on above: Performed By: #### L [id number] ####[facility] (BEAKER)[address] [place] [address] Immature granulocytes/100 WBC (Bld) 0.7 % Normal 0.0-1.0 [facility] Comment on above: Performed By: #### L [id number] ####[facility] (BEAKER)[address] [place] [address] IMMATURE PLATELET FRACTION % 5.7 % Normal 0.8-6.3 [facility] Comment on above: Performed By: #### L [id number] ####[facility] (AKER)[address] [place] [address] Lymphocytes (Bld) [#/Vol] 0.32 10*3/uL Low 1.20-4.00 [facility] Comment on above: Performed By: #### L [id number] ####[facility] (BEAKER)[address] [place] [address] Lymphocytes/100 WBC (Bld) 3.3 % Low 20.0-45.0 [facility] Comment on above: Performed By: #### L [id number] ####[facility] (BEAKER)[address] [place] [address] MCH (RBC) [Entitic mass] 32.0 pg Normal 27.0-33.0 [facility] Comment on above: Performed By: #### L [id number] ####[facility] (BE[facility]ER)[address] [place] [address] MCV (RBC) [Entitic vol] 90.3 fL Normal 82.0-98.0 [facility] Comment on above: Performed By: #### L [id number] ####[facility] (BEAKER)[address] [place] [address] Monocytes (Bld) [#/Vol] 0.55 10*3/uL Normal 0.10-1.00 [facility] Comment on above: Performed By: #### L [id number] ####[facility] ([facility])[address] [place], [place] [address] Monocytes/100 WBC (Bld) 5.6 % Normal 5.0-12.0 [facility] Comment on above: Performed By: #### L [id number] ####[facility] ([facility])[address] [place] [address] Neutrophils (Bld) [#/Vol] 8.81 10*3/uL High 1.60-7.60 [facility] Comment on above: Performed By: #### L [id number] ####[facility] ([facility])[address] [place] [address] Neutrophils/100 WBC (Bld) 90.3 % High 40.0-72.0 [facility] Comment on above: Performed By: #### L [id number] ####[facility] ([facility])[address] [place] [address] NRBC (PER 100 WBCS) BY AUTOMATED COUNT 0.3 % High 0 [facility] Comment on above: Performed By: #### L [id number] ####[facility] ([facility])[address] [place] [address] PLATELETS (10*3/UL) IN BLOOD AUTOMATED COUNT 133 10*3/uL Low 150-400 [facility] Comment on above: Performed By: #### L [id number] ####[facility] ([facility])[address] [place] [address] RBC (Bld) [#/Vol] 2.59 10*6/uL Low 4.20-5.70 [facility] Comment on above: Performed By: #### L [id number] ####[facility] ([facility])[address] [place] [address] WBC (Bld) [#/Vol] 9.76 10*3/uL Normal 4.00-10.60 [facility] Comment on above: Performed By: #### L [id number] ####[facility] ([facility])[address] [place] [address] COMPREHENSIVE METABOLIC PANE Conor 04-29-2025 Albumin [Mass/Vol] 3.1 g/dL Low 3.5-5.7 [facility] Comment on above: Performed By: #### L [id number] ####[facility] ([facility])[address] [place] [address] ALP [Catalytic activity/Vol] 56 U/L Normal 34-104 [facility] Comment on above: Performed By: #### L [id number] ####[facility] ([facility])[address] [place] [address] ALT [Catalytic activity/Vol] 267 U/L High 7-52 [facility] Comment on above: Performed By: #### L [id number] ####[facility] ([facility])[address] [place] [address] Anion gap [Moles/Vol] 14 mmol/L Normal 7-20 [facility] Comment on above: Performed By: #### L [id number] ####[facility] ([facility])[address] [place] [address] AST [Catalytic activity/Vol] 252 U/L High 13-39 [facility] Comment on above: Performed By: #### L [id number] ####[facility] ([facility])[address] [place] [address] Bilirubin [Mass/Vol] 0.7 mg/dL Normal 0.3-1.0 [facility] Comment on above: Performed By: #### L [id number] ####[facility] ([facility])[address] [place] [address] Calcium [Mass/Vol] 7.5 mg/dL Low 8.6-10.3 [facility] Comment on above: Performed By: #### L [id number] ####[facility] ([facility])[address] [place] [address] Chloride [Moles/Vol] 96 mmol/L Low 98-107 [facility] Comment on above: Performed By: #### L [id number] ####[facility] ([facility])[address] [place] [address] CO2 [Moles/Vol] 26 mmol/L Normal 21-31 [facility] Comment on above: Performed By: #### L [id number] ####[facility] ([facility])[address] [place] [address] Creatinine [Mass/Vol] 2.24 mg/dL High 0.70-1.30 [facility] Comment on above: Performed By: #### L [id number] ####[facility] ([facility])[address] [place] [address] GLOMERULAR FILTRATION RATE ML/MIN/1.73 SQ M.PREDICTED 31.0 mL/min/1.73m*2 Low >60.0 [facility] Comment on above: Result Comment: The [facility]???s estimated glomerular filtration rate (eGFR) will [...] of individuals. Performed By: #### L [id number] ####[facility] ([facility])[address] [place] [address] Glucose [Mass/Vol] 111 mg/dL High 70-100 [facility] Comment on above: Performed By: #### L [id number] ####[facility] ([facility])[address] [place] [address] Potassium [Moles/Vol] 3.7 mmol/L Normal 3.5-5.1 [facility] Comment on above: Performed By: #### L [id number] ####[facility] ([facility])[address] [place] [address] Protein [Mass/Vol] 5.5 g/dL Low 6.0-8.3 [facility] Comment on above: Performed By: #### L [id number] ####[facility] ([facility])[address] [place] [address] Sodium [Moles/Vol] 132 mmol/L Low 136-145 [facility] Comment on above: Performed By: #### L [id number] ####[facility] ([facility])[address] [place] [address] Urea nitrogen [Mass/Vol] 32 mg/dL High 7-25 [facility] Comment on above: Performed By: #### L [id number] ####[facility] ([facility])[address] [place] [address] UREA NITROGEN/CREATININE (MASS RATIO) IN SER/PLAS 14.3 Normal [facility] Comment on above: Performed By: #### L [id number] ####[facility] ([facility])[address] [place] [address] FERRITINon 04-29-2025 FERRITIN (NG/ML) IN SER/PLAS 1265.0 ng/mL High 24.0-336.0 [facility] Comment on above: Performed By: #### L [id number] ####[facility] ([facility])[address] [place] [address] IRON AND TIBCon 04-29-2025 IRON (UG/DL) IN SER/PLAS 33 ug/dL Low 50-212 [facility] Comment on above: Performed By: #### L [id number] ####[facility] ([facility])[address] [place] [address] IRON BINDING CAPACITY (UG/DL) IN SER/PLAS 214 ug/dL Low 250-450 [facility] Comment on above: Performed By: #### L [id number] ####[facility] (BEAKER)[address] [place] [address] IRON BINDING CAPACITY.UNSATURATED (UG/DL) IN SER/PLAS 181.0 ug/dL Normal 155.0-355.0 [facility] Comment on above: Performed By: #### L [id number] ####[facility] ([facility])[address] [place] [address] IRON SATURATION (%) IN SER/PLAS 15 % Low 20-50 [facility] Comment on above: Performed By: #### L [id number] ####[facility] (BEAKER)[address] [place] [address] MAGNESIUMon 04-29-2025 Magnesium [Mass/Vol] 1.9 mg/dL Normal 1.9-2.7 [facility] Comment on above: Performed By: #### L [id number] ####[facility] (BEAKER)[address] [place] [address] Magnesium [Mass/Vol] 2.0 mg/dL Normal 1.9-2.7 [facility] Comment on above: Performed By: #### L [id number] ####[facility] ([facility]ER)[address] [place] [address] Magnesium [Mass/Vol] 2.1 mg/dL Normal 1.9-2.7 [facility] Comment on above: Performed By: #### L [id number] ####[facility] ([facility]ER)[address] [place] [address] Magnesium [Mass/Vol] 2.2 mg/dL Normal 1.9-2.7 [facility] Comment on above: Performed By: #### L [id number] ####[facility] ([facility])[address] [place] [address] Magnesium [Mass/Vol] 1.9 mg/dL Normal 1.9-2.7 [facility] Comment on above: Performed By: #### L [id number] ####[facility] ([facility])[address] [place] [address] Magnesium [Mass/Vol] 2.0 mg/dL Normal 1.9-2.7 [facility] Comment on above: Performed By: #### L [id number] ####[facility] ([facility]ER)[address] [place] [address] PHOSPHORUSon 04-29-2025 Magnesium [Mass/Vol] 2.8 mg/dL Normal 2.5-5.0 [facility] Comment on above: Performed By: #### L [id number] ####[facility] ([facility])[address] [place] [address] Magnesium [Mass/Vol] 3.0 mg/dL Normal 2.5-5.0 [facility] Comment on above: Performed By: #### L [id number] ####[facility] ([facility])[address] [place] [address] Magnesium [Mass/Vol] 2.5 mg/dL Normal 2.5-5.0 [facility] Comment on above: Performed By: #### L [id number] ####[facility] ([facility])[address] [place] [address] Magnesium [Mass/Vol] 2.4 mg/dL Low 2.5-5.0 [facility] Comment on above: Performed By: #### L [id number] ####[facility] ([facility])[address] [place] [address] Magnesium [Mass/Vol] 2.8 mg/dL Normal 2.5-5.0 [facility] Comment on above: Performed By: #### L [id number] ####[facility] ([facility])[address] [place] [address] Magnesium [Mass/Vol] 2.7 mg/dL Normal 2.5-5.0 [facility] Comment on above: Performed By: #### L [id number] ####[facility] ([facility])[address] [place] [address] 30on 04-28-2025 30 The patient is Moderately Unstable - Medium risk of patient condition declining or worsening The patient's goals for the shift include comfort The clinical goals for the shift include VSS Normal [facility] ABG UNSOLICITED RESULTSon A-ADO2 Normal [facility] Comment on above: Result Comment: C^In calculable Performed By: #### L [id number] ####[facility] [id number] [place] [address] [facility] Base excess Calc (Bld) [Moles/Vol] -7.3000 mmol/L Low -2.0-3.0 [facility] Comment on above: Performed By: #### L [id number] ####[facility] [id number] [place] [address] [place] CO2 (Bld) [Partial pressure] 30 mm[Hg] Low 35-45 [facility] Comment on above: Performed By: #### L [id number] ####[facility] [id number] [place] [address] [facility] HCO3 (Bld) [Moles/Vol] 16.9 mmol/L Low 21.0-28.0 [facility] Comment on above: Performed By: #### L [id number] ####[facility] [id number] , [place] [address] [facility] Oxygen (Bld) [Partial pressure] 86 mm[Hg] Normal 83-108 [facility] Comment on above: Performed By: #### L [id number] ####[facility] [id number] [place] [address] [facility] OXYGEN DEVICE #1 Cannula Normal [facility] Comment on above: Performed By: #### L [id number] ####[facility] [id number] [place] [address] [place] OXYGEN LITERS PER MINUTE (LPM) IN BLOOD 4.0 LPM Normal [facility] Comment on above: Performed By: #### L [id number] ####[facility] [id number] [place] [address] [place] OXYGEN SATURATION (%) IN ARTERIAL BLOOD 98.1 % Normal 94.0-100.0 [facility] Comment on above: Performed By: #### L [id number] ####[facility] [id number] [place] [address] [place] OXYGENATED HEMOGLOBIN IN ARTERIAL BLOOD 96.2 % Normal 94.0-97.0 [facility] Comment on above: Performed By: #### L [id number] ####[facility] [id number] [place] [address] [facility] PAO2/PAO2 Normal [facility] Comment on above: Result Comment: C^In calculable Performed By: #### L [id number] ####[facility] [id number] [place] [address] [facility] PF RATIO Normal [facility] Comment on above: Result Comment: C^In calculable Performed By: #### L [id number] ####[facility] [id number] [place] [address] [facility] PH OF ARTERIAL BLOOD 7.36 Normal 7.35-7.45 [facility] Comment on above: Performed By: #### L [id number] ####[facility] [id number] [place] [address] [facility] TEMPERATURE 37.0 ???C Normal [facility] Comment on above: Performed By: #### L [id number] ####[facility] [id number] [place] [address] [facility] BASIC METABOLIC PANELon 10- Anion gap [Moles/Vol] 15 mmol/L Normal 7-20 [facility] Comment on above: Performed By: #### L [id number] ####[facility] ([facility])[address] [place] [address] Calcium [Mass/Vol] 6.9 mg/dL Low 8.6-10.3 [facility] Comment on above: Performed By: #### L [id number] ####[facility] ([facility])[address] [place] [address] Chloride [Moles/Vol] 99 mmol/L Normal 98-107 [facility] Comment on above: Performed By: #### L [id number] ####[facility] ([facility])[address] [place] [address] CO2 [Moles/Vol] 21 mmol/L Normal 21-31 [facility] Comment on above: Performed By: #### L [id number] ####[facility] ([facility])[address] [place] [address] Creatinine [Mass/Vol] 2.65 mg/dL High 0.70-1.30 [facility] Comment on above: Performed By: #### L [id number] ####[facility] ([facility])[address] [place] [address] GLOMERULAR FILTRATION RATE ML/MIN/1.73 SQ M.PREDICTED 25.3 mL/min/1.73m*2 Low >60.0 [facility] [place] Comment on above: Result Comment: The [facility]???s estimated glomerular filtration rate (eGFR) will [...] of individuals. Performed By: #### L [id number] ####[facility] ([facility])[address] [place] [address] Glucose [Mass/Vol] 109 mg/dL High 70-100 [facility] Comment on above: Performed By: #### L [id number] ####[facility] ([facility])[address] [place] [address] Potassium [Moles/Vol] 3.7 mmol/L Normal 3.5-5.1 [facility] Comment on above: Performed By: #### L [id number] ####[facility] ([facility])[address] [place] [address] Sodium [Moles/Vol] 131 mmol/L Low 136-145 [facility] Comment on above: Performed By: #### L [id number] ####[facility] ([facility])[address] [place] [address] Urea nitrogen [Mass/Vol] 38 mg/dL High 7-25 [facility] Comment on above: Performed By: #### L [id number] ####[facility] ([facility])[address] [place] [address] UREA NITROGEN/CREATININE (MASS RATIO) IN SER/PLAS 14.3 Normal [facility] Comment on above: Performed By: #### L [id number] ####[facility] ([facility])[address] [place] [address] Anion gap [Moles/Vol] 14 mmol/L Normal 7-20 [facility] Comment on above: Performed By: #### L [id number] ####[facility] ([facility])[address] [place] [address] Calcium [Mass/Vol] 6.3 mg/dL Low 8.6-10.3 [facility] Comment on above: Performed By: #### L [id number] ####[facility] [facility] [place] [address] Chloride [Moles/Vol] 100 mmol/L Normal 98-107 [facility] Comment on above: Performed By: #### L [id number] ####[facility] ([facility])[address] [place] [address] CO2 [Moles/Vol] 21 mmol/L Normal 21-31 [facility] Comment on above: Performed By: #### L [id number] ####[facility] ([facility])[address] [place] [address] Creatinine [Mass/Vol] 3.34 mg/dL High 0.70-1.30 [facility] Comment on above: Performed By: #### L [id number] ####[facility] ([facility])[address] [place] [address] GLOMERULAR FILTRATION RATE ML/MIN/1.73 SQ M.PREDICTED 19.2 mL/min/1.73m*2 Low >60.0 [facility] [place] Comment on above: Result Comment: The [facility]???s estimated glomerular filtration rate (eGFR) will [...] of individuals. Performed By: #### L [id number] ####[facility] ([facility])[address] [place] [address] Glucose [Mass/Vol] 123 mg/dL High 70-100 [facility] Comment on above: Performed By: #### L [id number] ####[facility] ([facility])[address] [place] [address] Potassium [Moles/Vol] 3.6 mmol/L Normal 3.5-5.1 [facility] Comment on above: Performed By: #### L [id number] ####[facility] ([facility])[address] [place] [address] Sodium [Moles/Vol] 131 mmol/L Low 136-145 [facility] Comment on above: Performed By: #### L [id number] ####[facility] ([facility])[address] [place] [address] Urea nitrogen [Mass/Vol] 45 mg/dL High 7-25 [facility] Comment on above: Performed By: #### L [id number] ####[facility] ([facility])[address] [place] [address] UREA NITROGEN/CREATININE (MASS RATIO) IN SER/PLAS 13.5 Normal [facility] Comment on above: Performed By: #### L [id number] ####[facility] ([facility])[address] [place] [address] Anion gap [Moles/Vol] 14 mmol/L Normal 7-20 [facility] Comment on above: Performed By: #### L [id number] ####[facility] ([facility])[address] [place] [address] Calcium [Mass/Vol] 6.7 mg/dL Low 8.6-10.3 [facility] Comment on above: Performed By: #### L [id number] ####[facility] ([facility])[address] [place] [address] Chloride [Moles/Vol] 99 mmol/L Normal 98-107 [facility] Comment on above: Performed By: #### L [id number] ####[facility] ([facility])[address] [place] [address] CO2 [Moles/Vol] 21 mmol/L Normal 21-31 [facility] Comment on above: Performed By: #### L [id number] ####[facility] ([facility])[address] [place] [address] Creatinine [Mass/Vol] 3.36 mg/dL High 0.70-1.30 [facility] Comment on above: Performed By: #### L [id number] ####[facility] ([facility])[address] [place] [address] GLOMERULAR FILTRATION RATE ML/MIN/1.73 SQ M.PREDICTED 19.0 mL/min/1.73m*2 Low >60.0 [facility] [place] Comment on above: Result Comment: The [facility]???s estimated glomerular filtration rate (eGFR) will [...] of individuals. Performed By: #### L [id number] ####[facility] ([facility])[address] [place] [address] Glucose [Mass/Vol] 121 mg/dL High 70-100 [facility] Comment on above: Performed By: #### L [id number] ####[facility] ([facility])[address] [place] [address] Potassium [Moles/Vol] 4.3 mmol/L Normal 3.5-5.1 [facility] Comment on above: Performed By: #### L [id number] ####[facility] ([facility])[address] [place] [address] Sodium [Moles/Vol] 130 mmol/L Low 136-145 [facility] Comment on above: Performed By: #### L [id number] ####[facility] ([facility])[address] [place] [address] Urea nitrogen [Mass/Vol] 42 mg/dL High 7-25 [facility] Comment on above: Performed By: #### L [id number] ####[facility] ([facility])[address] [place] [address] UREA NITROGEN/CREATININE (MASS RATIO) IN SER/PLAS 12.5 Normal [facility] Comment on above: Performed By: #### L [id number] ####[facility] ([facility])[address] [place] [address] Anion gap [Moles/Vol] 17 mmol/L Normal 7-20 [facility] Comment on above: Performed By: #### L [id number] ####[facility] ([facility])[address] [place] [address] Calcium [Mass/Vol] 7.0 mg/dL Low 8.6-10.3 [facility] Comment on above: Performed By: #### L [id number] ####[facility] ([facility])[address] [place] [address] Chloride [Moles/Vol] 100 mmol/L Normal 98-107 [facility] Comment on above: Performed By: #### L [id number] ####[facility] ([facility])[address] [place] [address] CO2 [Moles/Vol] 16 mmol/L Low 21-31 [facility] Comment on above: Performed By: #### L [id number] ####[facility] ([facility])[address] [place] [address] Creatinine [Mass/Vol] 3.23 mg/dL High 0.70-1.30 [facility] Comment on above: Performed By: #### L [id number] ####[facility] ([facility])[address] [place] [address] GLOMERULAR FILTRATION RATE ML/MIN/1.73 SQ M.PREDICTED 20.0 mL/min/1.73m*2 Low >60.0 [facility] [place] Comment on above: Result Comment: The [facility]???s estimated glomerular filtration rate (eGFR) will [...] of individuals. Performed By: #### L [id number] ####[facility] ([facility])[address] [place] [address] Glucose [Mass/Vol] 151 mg/dL High 70-100 [facility] Comment on above: Performed By: #### L [id number] ####[facility] ([facility])[address] [place] [address] Potassium [Moles/Vol] 4.3 mmol/L Normal 3.5-5.1 [facility] Comment on above: Performed By: #### L [id number] ####[facility] ([facility])[address] [place] [address] Sodium [Moles/Vol] 129 mmol/L Low 136-145 [facility] Comment on above: Performed By: #### L [id number] ####[facility] ([facility])[address] [place] [address] Urea nitrogen [Mass/Vol] 41 mg/dL High 7-25 [facility] Comment on above: Performed By: #### L [id number] ####[facility] ([facility])[address] [place] [address] UREA NITROGEN/CREATININE (MASS RATIO) IN SER/PLAS 12.7 Normal [facility] Comment on above: Performed By: #### L [id number] ####[facility] ([facility])[address] [place] [address] Anion gap [Moles/Vol] 19 mmol/L Normal 7-20 [facility] Comment on above: Performed By: #### L [id number] ####[facility] ([facility])[address] [place] [address] Calcium [Mass/Vol] 6.1 mg/dL Low 8.6-10.3 [facility] Comment on above: Performed By: #### L [id number] ####[facility] ([facility])[address] [place] [address] Chloride [Moles/Vol] 101 mmol/L Normal 98-107 [facility] Comment on above: Performed By: #### L [id number] ####[facility] ([facility])[address] [place] [address] CO2 [Moles/Vol] 13 mmol/L Invalid Interpretation Code [facility] Comment on above: Performed By: #### L [id number] ####[facility] ([facility])[address] [place] [address] Creatinine [Mass/Vol] 3.55 mg/dL High 0.70-1.30 [facility] Comment on above: Performed By: #### L [id number] ####[facility] ([facility])[address] [place] [address] GLOMERULAR FILTRATION RATE ML/MIN/1.73 SQ M.PREDICTED 17.8 mL/min/1.73m*2 Low >60.0 [facility] [place] Comment on above: Result Comment: The [facility]???s estimated glomerular filtration rate (eGFR) will [...] of individuals. Performed By: #### L [id number] ####[facility] ([facility])[address] [place] [address] Glucose [Mass/Vol] 161 mg/dL High 70-100 [facility] Comment on above: Performed By: #### L [id number] ####[facility] ([facility])[address] [place] [address] Potassium [Moles/Vol] 4.1 mmol/L Normal 3.5-5.1 [facility] Comment on above: Performed By: #### L [id number] ####[facility] ([facility])[address] [place] [address] Sodium [Moles/Vol] 129 mmol/L Low 136-145 [facility] Comment on above: Performed By: #### L [id number] ####[facility] ([facility])[address] [place] [address] Urea nitrogen [Mass/Vol] 44 mg/dL High 7-25 [facility] Comment on above: Performed By: #### L [id number] ####[facility] ([facility])[address] [place] [address] UREA NITROGEN/CREATININE (MASS RATIO) IN SER/PLAS 12.4 Normal [facility] Comment on above: Performed By: #### L [id number] ####[facility] ([facility])[address] [place] [address] CBCon 04-28-2025 Erythrocyte distribution width (RBC) [Ratio] 14.3 % Normal 11.5-15.0 [facility] Comment on above: Performed By: #### L [id number] ####[facility] ([facility])[address] [place] [address] ERYTHROCYTE MEAN CORPUSCULAR HEMOGLOBIN CONCENTRATION (G/DL) BY AUTOMATED 34.6 g/dL Normal 32.0-35.0 [facility] Comment on above: Performed By: #### L [id number] ####[facility] ([facility])[address] [place] [address] Hematocrit (Bld) [Volume fraction] 27.2 % Low 39.0-50.0 [facility] Comment on above: Performed By: #### L [id number] ####[facility] ([facility])[address] [place] [address] Hemoglobin (Bld) [Mass/Vol] 9.4 g/dL Low 13.0-17.0 [facility] Comment on above: Performed By: #### L [id number] ####[facility] ([facility])[address] [place] [address] MCH (RBC) [Entitic mass] 32.4 pg Normal 27.0-33.0 [facility] Comment on above: Performed By: #### L [id number] ####[facility] ([facility])[address] [place] [address] MCV (RBC) [Entitic vol] 93.8 fL Normal 82.0-98.0 [facility] Comment on above: Performed By: #### L [id number] ####[facility] ([facility])[address] [place] [address] PLATELETS (10*3/UL) IN BLOOD AUTOMATED COUNT 163 10*3/uL Normal 150-400 [facility] Comment on above: Performed By: #### L [id number] ####[facility] ([facility])[address] [place] [address] RBC (Bld) [#/Vol] 2.90 10*6/uL Low 4.20-5.70 [facility] Comment on above: Performed By: #### L [id number] ####[facility] ([facility])[address] [place] [address] WBC (Bld) [#/Vol] 19.72 10*3/uL High 4.00-10.60 [facility] Comment on above: Performed By: #### L [id number] ####[facility] ([facility])[address] [place] [address] COMPREHENSIVE METABOLIC PANE Conor 04-28-2025 Albumin [Mass/Vol] 3.1 g/dL Low 3.5-5.7 [facility] Comment on above: Performed By: #### L [id number] ####[facility] ([facility])[address] [place] [address] ALP [Catalytic activity/Vol] 62 U/L Normal 34-104 [facility] Comment on above: Performed By: #### L [id number] ####[facility] ([facility])[address] [place] [address] ALT [Catalytic activity/Vol] 314 U/L High 7-52 [facility] Comment on above: Performed By: #### L [id number] ####[facility] ([facility])[address] [place] [address] Anion gap [Moles/Vol] 15 mmol/L Normal 7-20 [facility] Comment on above: Performed By: #### L [id number] ####[facility] ([facility])[address] [place] [address] AST [Catalytic activity/Vol] 514 U/L High 13-39 [facility] Comment on above: Performed By: #### L [id number] ####[facility] ([facility])[address] [place] [address] Bilirubin [Mass/Vol] 0.6 mg/dL Normal 0.3-1.0 [facility] Comment on above: Performed By: #### L [id number] ####[facility] ([facility])[address] [place] [address] Calcium [Mass/Vol] 6.9 mg/dL Low 8.6-10.3 [facility] Comment on above: Performed By: #### L [id number] ####[facility] ([facility])[address] [place] [address] Chloride [Moles/Vol] 98 mmol/L Normal 98-107 [facility] Comment on above: Performed By: #### L [id number] ####[facility] ([facility])[address] [place] [address] CO2 [Moles/Vol] 22 mmol/L Normal 21-31 [facility] Comment on above: Performed By: #### L [id number] ####[facility] ([facility])[address] [place] [address] Creatinine [Mass/Vol] 3.18 mg/dL High 0.70-1.30 [facility] Comment on above: Performed By: #### L [id number] ####[facility] ([facility])[address] [place] [address] GLOMERULAR FILTRATION RATE ML/MIN/1.73 SQ M.PREDICTED 20.3 mL/min/1.73m*2 Low >60.0 [facility] [place] Comment on above: Result Comment: The [facility]???s estimated glomerular filtration rate (eGFR) will [...] of individuals. Performed By: #### L [id number] ####[facility] ([facility])[address] [place] [address] Glucose [Mass/Vol] 132 mg/dL High 70-100 [facility] Comment on above: Performed By: #### L [id number] ####[facility] ([facility])[address] [place] [address] Potassium [Moles/Vol] 3.6 mmol/L Normal 3.5-5.1 [facility] Comment on above: Performed By: #### L [id number] ####[facility] ([facility])[address] [place] [address] Protein [Mass/Vol] 5.5 g/dL Low 6.0-8.3 [facility] Comment on above: Performed By: #### L [id number] ####[facility] ([facility])[address] [place] [address] Sodium [Moles/Vol] 131 mmol/L Low 136-145 [facility] Comment on above: Performed By: #### L [id number] ####[facility] ([facility])[address] [place] [address] Urea nitrogen [Mass/Vol] 43 mg/dL High 7-25 [facility] Comment on above: Performed By: #### L [id number] ####[facility] ([facility])[address] [place] [address] UREA NITROGEN/CREATININE (MASS RATIO) IN SER/PLAS 13.5 Normal [facility] Comment on above: Performed By: #### L [id number] ####[facility] ([facility])[address] [place] [address] MAGNESIUMon 04-28-2025 Magnesium [Mass/Vol] 1.8 mg/dL Low 1.9-2.7 [facility] Comment on above: Performed By: #### L [id number] ####[facility] ([facility])[address] [place] [address] Magnesium [Mass/Vol] 2.0 mg/dL Normal 1.9-2.7 [facility] Comment on above: Performed By: #### L [id number] ####[facility] ([facility])[address] [place] [address] Magnesium [Mass/Vol] 2.0 mg/dL Normal 1.9-2.7 [facility] Comment on above: Performed By: #### L [id number] ####[facility] ([facility])[address] [place] [address] Magnesium [Mass/Vol] 2.1 mg/dL Normal 1.9-2.7 [facility] Comment on above: Performed By: #### L [id number] ####[facility] ([facility])[address] [place] [address] Magnesium [Mass/Vol] 1.9 mg/dL Normal 1.9-2.7 [facility] Comment on above: Performed By: #### L [id number] ####[facility] ([facility])[address] [place] [address] Magnesium [Mass/Vol] 1.9 mg/dL Normal 1.9-2.7 [facility] Comment on above: Performed By: #### L [id number] ####[facility] ([facility])[address] [place] [address] PHOSPHORUSon 04-28-2025 Magnesium [Mass/Vol] 3.3 mg/dL Normal 2.5-5.0 [facility] Comment on above: Performed By: #### L [id number] ####[facility] ([facility])[address] [place] [address] Magnesium [Mass/Vol] 4.1 mg/dL Normal 2.5-5.0 [facility] Comment on above: Performed By: #### L [id number] ####[facility] ([facility])[address] [place] [address] Magnesium [Mass/Vol] 4.7 mg/dL Normal 2.5-5.0 [facility] Comment on above: Performed By: #### L [id number] ####[facility] ([facility])[address] [place] [address] Magnesium [Mass/Vol] 4.9 mg/dL Normal 2.5-5.0 [facility] Comment on above: Performed By: #### L [id number] ####[facility] ([facility])[address] [place] [address] Magnesium [Mass/Vol] 4.4 mg/dL Normal 2.5-5.0 [facility] Comment on above: Performed By: #### L [id number] ####[facility] ([facility])[address] [place] [address] Magnesium [Mass/Vol] 3.7 mg/dL Normal 2.5-5.0 [facility] Comment on above: Performed By: #### L [id number] ####[facility] ([facility])[address] [place] [address] POCT GLUCOSE METER UNSOLICIT ED RESULTSon 04-28-2025 Glucose [Mass/Vol] 88 mg/dL Normal 70-105 [facility] Comment on above: Order Comment: Waive d Testing in the ED is performed under the ED CLIA certificate #[id number]. Result Comment: [email or web address] Performed By: #### L [id number] ####[facility] ([facility])[address] [place] [address] 30on 04-27-2025 30 The patient is Moderately Unstable - Medium risk of patient condition declining or worsening The patient's goals for the shift include comfort The clinical goals for the shift include VSS Normal [facility] BASIC METABOLIC PANELon 04-18 Anion gap [Moles/Vol] 20 mmol/L Normal 7-20 [facility] Comment on above: Performed By: #### L [id number] ####[facility] ([facility])[address] [place] [address] Calcium [Mass/Vol] 6.5 mg/dL Low 8.6-10.3 [facility] Comment on above: Performed By: #### L [id number] ####[facility] ([facility])[address] [place] [address] Chloride [Moles/Vol] 98 mmol/L Normal 98-107 [facility] Comment on above: Performed By: #### L [id number] ####[facility] ([facility])[address] [place] [address] CO2 [Moles/Vol] 15 mmol/L Low 21-31 [facility] Comment on above: Performed By: #### L [id number] ####[facility] ([facility])[address] [place] [address] Creatinine [Mass/Vol] 3.53 mg/dL High 0.70-1.30 [facility] Comment on above: Performed By: #### L [id number] ####[facility] ([facility])[address] [place] [address] GLOMERULAR FILTRATION RATE ML/MIN/1.73 SQ M.PREDICTED 17.9 mL/min/1.73m*2 Low >60.0 [facility] Comment on above: Result Comment: The [facility]???s estimated glomerular filtration rate (eGFR) will [...] of individuals. Performed By: #### L [id number] ####[facility] ([facility])[address] [place] [address] Glucose [Mass/Vol] 140 mg/dL High 70-100 [facility] Comment on above: Performed By: #### L [id number] ####[facility] ([facility])[address] [place] [address] Potassium [Moles/Vol] 4.6 mmol/L Normal 3.5-5.1 [facility] Comment on above: Performed By: #### L [id number] ####[facility] ([facility])[address] [place] [address] Sodium [Moles/Vol] 128 mmol/L Low 136-145 [facility] Comment on above: Performed By: #### L [id number] ####[facility] ([facility])[address] [place] [address] Urea nitrogen [Mass/Vol] 47 mg/dL High 7-25 [facility] Comment on above: Performed By: #### L [id number] ####[facility] ([facility])[address] [place] [address] UREA NITROGEN/CREATININE (MASS RATIO) IN SER/PLAS 13.3 Normal [facility] Comment on above: Performed By: #### L [id number] ####[facility] ([facility])[address] [place] [address] Anion gap [Moles/Vol] 18 mmol/L Normal 7-20 [facility] Comment on above: Performed By: #### L [id number] ####[facility] ([facility])[address] [place] [address] Calcium [Mass/Vol] 6.7 mg/dL Low 8.6-10.3 [facility] Comment on above: Performed By: #### L [id number] ####[facility] ([facility])[address] [place] [address] Chloride [Moles/Vol] 100 mmol/L Normal 98-107 [facility] Comment on above: Performed By: #### L [id number] ####[facility] ([facility])[address] [place] [address] CO2 [Moles/Vol] 16 mmol/L Low 21-31 [facility] Comment on above: Performed By: #### L [id number] ####[facility] ([facility]AKER)[address] [place] [address] Creatinine [Mass/Vol] 3.57 mg/dL High 0.70-1.30 [facility] Comment on above: Performed By: #### L [id number] ####[facility] (BEAKER)[address] [place] [address] GLOMERULAR FILTRATION RATE ML/MIN/1.73 SQ M.PREDICTED 17.7 mL/min/1.73m*2 Low >60.0 [facility] [place] Comment on above: Result Comment: The [facility]???s estimated glomerular filtration rate (eGFR) will [...] of individuals. Performed By: #### L [id number] ####[facility] ([facility])[address] [place] [address] Glucose [Mass/Vol] 134 mg/dL High 70-100 [facility] Comment on above: Performed By: #### L [id number] ####[facility] ([facility])[address] [place] [address] Potassium [Moles/Vol] 4.5 mmol/L Normal 3.5-5.1 [facility] Comment on above: Performed By: #### L [id number] ####[facility] (BEAKER)[address] [place] [address] Sodium [Moles/Vol] 129 mmol/L Low 136-145 [facility] Comment on above: Performed By: #### L [id number] ####[facility] (BEAKER)[address] [place] [address] Urea nitrogen [Mass/Vol] 46 mg/dL High 7-25 [facility] Comment on above: Performed By: #### L [id number] ####[facility] (BEAKER)[address] [place] [address] UREA NITROGEN/CREATININE (MASS RATIO) IN SER/PLAS 12.9 Normal [facility] Comment on above: Performed By: #### L [id number] ####[facility] (BEAKER)[address] [place] [address] Anion gap [Moles/Vol] 18 mmol/L Normal 7-20 [facility] Comment on above: Performed By: #### L [id number] ####[facility] (BEAKER)[address] [place] [address] Calcium [Mass/Vol] 7.1 mg/dL Low 8.6-10.3 [facility] Comment on above: Performed By: #### L [id number] ####[facility] ([facility])[address] [place] [address] Chloride [Moles/Vol] 98 mmol/L Normal 98-107 [facility] Comment on above: Performed By: #### L [id number] ####[facility] ([facility])[address] [place] [address] CO2 [Moles/Vol] 16 mmol/L Low 21-31 [facility] Comment on above: Performed By: #### L [id number] ####[facility] ([facility])[address] [place] [address] Creatinine [Mass/Vol] 3.03 mg/dL High 0.70-1.30 [facility] Comment on above: Performed By: #### L [id number] ####[facility] ([facility])[address] [place] [address] GLOMERULAR FILTRATION RATE ML/MIN/1.73 SQ M.PREDICTED 21.5 mL/min/1.73m*2 Low >60.0 [facility] Comment on above: Result Comment: The [facility]???s estimated glomerular filtration rate (eGFR) will [...] of individuals. Performed By: #### L [id number] ####[facility] ([facility])[address] [place] [address] Glucose [Mass/Vol] 175 mg/dL High 70-100 [facility] Comment on above: Performed By: #### L [id number] ####[facility] ([facility])[address] [place] [address] Potassium [Moles/Vol] 4.5 mmol/L Normal 3.5-5.1 [facility] Comment on above: Performed By: #### L [id number] ####[facility] ([facility])[address] [place] [address] Sodium [Moles/Vol] 127 mmol/L Low 136-145 [facility] Comment on above: Performed By: #### L [id number] ####[facility] ([facility])[address] [place] [address] Urea nitrogen [Mass/Vol] 41 mg/dL High 7-25 [facility] Comment on above: Performed By: #### L [id number] ####[facility] ([facility])[address] [place] [address] UREA NITROGEN/CREATININE (MASS RATIO) IN SER/PLAS 13.5 Normal [facility] Comment on above: Performed By: #### L [id number] ####[facility] ([facility])[address] [place] [address] CBCon 04-27-2025 Erythrocyte distribution width (RBC) [Ratio] 14.0 % Normal 11.5-15.0 [facility] Comment on above: Performed By: #### L [id number] ####[facility] ([facility])[address] [place] [address] ERYTHROCYTE MEAN CORPUSCULAR HEMOGLOBIN CONCENTRATION (G/DL) BY AUTOMATED 35.0 g/dL Normal 32.0-35.0 [facility] Comment on above: Performed By: #### L [id number] ####[facility] ([facility])[address] [place] [address] Hematocrit (Bld) [Volume fraction] 32.0 % Low 39.0-50.0 [facility] Comment on above: Performed By: #### L [id number] ####[facility] ([facility])[address] [address] Hemoglobin (Bld) [Mass/Vol] 11.2 g/dL Low 13.0-17.0 [facility] Comment on above: Performed By: #### L [id number] ####[facility] ([facility])[address] [address] MCH (RBC) [Entitic mass] 32.0 pg Normal 27.0-33.0 [facility] Comment on above: Performed By: #### L [id number] ####[facility] ([facility])[address] [address] MCV (RBC) [Entitic vol] 91.4 fL Normal 82.0-98.0 [facility] Comment on above: Performed By: #### L [id number] ####[facility] ([facility])[address] [place] [address] PLATELETS (10*3/UL) IN BLOOD AUTOMATED COUNT 287 10*3/uL Normal 150-400 [facility] Comment on above: Performed By: #### L [id number] ####[facility] ([facility])[address] [address] RBC (Bld) [#/Vol] 3.50 10*6/uL Low 4.20-5.70 [facility] Comment on above: Performed By: #### L [id number] ####[facility] ([facility])[address] [address] WBC (Bld) [#/Vol] 8.21 10*3/uL Normal 4.00-10.60 [facility] Comment on above: Performed By: #### L [id number] ####[facility] ([facility])[address] [address] CO-OXIMETRYon 04-27-2025 Hemoglobin (Bld) [Mass/Vol] 11.5 g/dL Normal [facility] Comment on above: Performed By: #### L [id number] ####[facility] [id number] [place] [address] [place] Oxygen saturation in Blood 36.4 % Normal [facility] Comment on above: Performed By: #### L [id number] ####[facility] [id number] [place] [address] [place] OXYGENATED HEMOGLOBIN IN BLOOD 36.0 % Normal [facility] Comment on above: Performed By: #### L [id number] ####[facility] [id number] [place] [address] [place] HEMOGLOBIN AND HEMATOCRIT, B LOODon 04-27-2025 Hematocrit (Bld) [Volume fraction] 30.2 % Low 39.0-50.0 [facility] Comment on above: Performed By: #### L [id number] ####[facility] (BEAKER)[address] [place] [address] Hemoglobin (Bld) [Mass/Vol] 10.6 g/dL Low 13.0-17.0 [facility] Comment on above: Performed By: #### L [id number] ####[facility] (BEAKER)[address] [place] [address] MAGNESIUMon 04-27-2025 Magnesium [Mass/Vol] 1.8 mg/dL Low 1.9-2.7 [facility] Comment on above: Performed By: #### L [id number] ####[facility] (BEAKER)[address] [place] [address] Magnesium [Mass/Vol] 1.6 mg/dL Low 1.9-2.7 [facility] Comment on above: Performed By: #### L [id number] ####[facility] (BEAKER)[address] [place] [address] Magnesium [Mass/Vol] 1.9 mg/dL Normal 1.9-2.7 [facility] Comment on above: Performed By: #### L [id number] ####[facility] (BEAKER)[address] [place] [address] PHOSPHORUSon 04-27-2025 Magnesium [Mass/Vol] 3.0 mg/dL Normal 2.5-5.0 [facility] Comment on above: Performed By: #### L [id number] ####[facility] ([facility])[address] [place] [address] Magnesium [Mass/Vol] 3.5 mg/dL Normal 2.5-5.0 [facility] Comment on above: Performed By: #### L [id number] ####[facility] ([facility])[address] [place] [address] POCT GLUCOSE METER UNSOLICIT ED RESULTSon 04-27-2025 Glucose [Mass/Vol] 148 mg/dL High 70-105 [facility] Comment on above: Order Comment: Waive d Testing in the ED is performed under the ED CLIA certificate #[id number]. Result Comment: [email or web address] Performed By: #### L [id number] ####[facility] ([facility])[address] [place] [address] Glucose [Mass/Vol] 153 mg/dL High 70-105 [facility] Comment on above: Order Comment: Waive d Testing in the ED is performed under the ED CLIA certificate #[id number]. Result Comment: [email or web address] Performed By: #### L [id number] ####[facility] ([facility])[address] [place] [address] Glucose [Mass/Vol] 170 mg/dL High 70-105 [facility] Comment on above: Order Comment: Waive d Testing in the ED is performed under the ED CLIA certificate #[id number]. Result Comment: [email or web address] Performed By: #### L [id number] ####[facility] ([facility])[address] [place] [address] BASIC METABOLIC PANELon 10 Anion gap [Moles/Vol] 18 mmol/L Normal 7-20 [facility] Comment on above: Performed By: #### L [id number] ####[facility] ([facility])[address] [place] [address] Calcium [Mass/Vol] 6.8 mg/dL Low 8.6-10.3 [facility] Comment on above: Performed By: #### L [id number] ####[facility] ([facility])[address] [place] [address] Chloride [Moles/Vol] 98 mmol/L Normal 98-107 [facility] Comment on above: Performed By: #### L [id number] ####[facility] ([facility])[address] [place] [address] CO2 [Moles/Vol] 15 mmol/L Low 21-31 [facility] Comment on above: Performed By: #### L [id number] ####[facility] ([facility])[address] [place] [address] Creatinine [Mass/Vol] 2.92 mg/dL High 0.70-1.30 [facility] Comment on above: Performed By: #### L [id number] ####[facility] ([facility])[address] [place] [address] GLOMERULAR FILTRATION RATE ML/MIN/1.73 SQ M.PREDICTED 22.5 mL/min/1.73m*2 Low >60.0 [facility] [place] Comment on above: Result Comment: The [facility]???s estimated glomerular filtration rate (eGFR) will [...] of individuals. Performed By: #### L [id number] ####[facility] ([facility])[address] [place] [address] Glucose [Mass/Vol] 181 mg/dL High 70-100 [facility] Comment on above: Performed By: #### L [id number] ####[facility] (BEAKER)[address] [place] [address] Potassium [Moles/Vol] 4.3 mmol/L Normal 3.5-5.1 [facility] Comment on above: Performed By: #### L [id number] ####[facility] (BEAKER)[address] [place] [address] Sodium [Moles/Vol] 127 mmol/L Low 136-145 [facility] Comment on above: Performed By: #### L [id number] ####[facility] (BEAKER)[address] [place] [address] Urea nitrogen [Mass/Vol] 41 mg/dL High 7-25 [facility] Comment on above: Performed By: #### L [id number] ####[facility] (BEAKER)[address] [place] [address] UREA NITROGEN/CREATININE (MASS RATIO) IN SER/PLAS 14.0 Normal [facility] Comment on above: Performed By: #### L [id number] ####[facility] (BEAKER)[address] [place] [address] Anion gap [Moles/Vol] 16 mmol/L Normal 7-20 [facility] Comment on above: Performed By: #### L [id number] ####[facility] (BEAKER)[address] [place] [address] Calcium [Mass/Vol] 7.1 mg/dL Low 8.6-10.3 [facility] Comment on above: Performed By: #### L [id number] ####[facility] (BEAKER)[address] [place] [address] Chloride [Moles/Vol] 97 mmol/L Low 98-107 [facility] Comment on above: Performed By: #### L [id number] ####[facility] (BEAKER)[address] [place] [address] CO2 [Moles/Vol] 18 mmol/L Low 21-31 [facility] Comment on above: Performed By: #### L [id number] ####[facility] ([facility])[address] [place] [address] Creatinine [Mass/Vol] 2.84 mg/dL High 0.70-1.30 [facility] Comment on above: Performed By: #### L [id number] ####[facility] ([facility])[address] [place] [address] GLOMERULAR FILTRATION RATE ML/MIN/1.73 SQ M.PREDICTED 23.3 mL/min/1.73m*2 Low >60.0 [facility] Comment on above: Result Comment: The [facility]???s estimated glomerular filtration rate (eGFR) will [...] of individuals. Performed By: #### L [id number] ####[facility] ([facility])[address] [place] [address] Glucose [Mass/Vol] 168 mg/dL High 70-100 [facility] Comment on above: Performed By: #### L [id number] ####[facility] ([facility])[address] [place] [address] Potassium [Moles/Vol] 4.1 mmol/L Normal 3.5-5.1 [facility] Comment on above: Performed By: #### L [id number] ####[facility] ([facility])[address] [place] [address] Sodium [Moles/Vol] 127 mmol/L Low 136-145 [facility] Comment on above: Performed By: #### L [id number] ####[facility] ([facility])[address] [place] [address] Urea nitrogen [Mass/Vol] 39 mg/dL High 7-25 [facility] Comment on above: Performed By: #### L [id number] ####[facility] (BEAKER)[address] [place] [address] UREA NITROGEN/CREATININE (MASS RATIO) IN SER/PLAS 13.7 Normal [facility] Comment on above: Performed By: #### L [id number] ####[facility] (BEAKER)[address] [place] [address] Anion gap [Moles/Vol] 14 mmol/L Normal 7-20 [facility] Comment on above: Performed By: #### L [id number] ####[facility] (BEAKER)[address] [place] [address] Calcium [Mass/Vol] 7.2 mg/dL Low 8.6-10.3 [facility] Comment on above: Performed By: #### L [id number] ####[facility] (BEAKER)[address] [place] [address] Chloride [Moles/Vol] 100 mmol/L Normal 98-107 [facility] Comment on above: Performed By: #### L [id number] ####[facility] (BEAKER)[address] [place] [address] CO2 [Moles/Vol] 19 mmol/L Low 21-31 [facility] Comment on above: Performed By: #### L [id number] ####[facility] (BEAKER)[address] [place] [address] Creatinine [Mass/Vol] 2.83 mg/dL High 0.70-1.30 [facility] Comment on above: Performed By: #### L [id number] ####[facility] (BEAKER)[address] [place] [address] GLOMERULAR FILTRATION RATE ML/MIN/1.73 SQ M.PREDICTED 23.4 mL/min/1.73m*2 Low >60.0 [facility] Comment on above: Result Comment: The [facility]???s estimated glomerular filtration rate (eGFR) will [...] of individuals. Performed By: #### L [id number] ####[facility] ([facility])[address] , [place] [address] Glucose [Mass/Vol] 128 mg/dL High 70-100 [facility] Comment on above: Performed By: #### L [id number] ####[facility] ([facility])[address] [address] Potassium [Moles/Vol] 4.2 mmol/L Normal 3.5-5.1 [facility] Comment on above: Performed By: #### L [id number] ####[facility] ([facility])[address] [place] [address] Sodium [Moles/Vol] 129 mmol/L Low 136-145 [facility] Comment on above: Performed By: #### L [id number] ####[facility] ([facility])[address] [address] Urea nitrogen [Mass/Vol] 40 mg/dL High 7-25 [facility] Comment on above: Performed By: #### L [id number] ####[facility] ([facility])[address] [place] [address] UREA NITROGEN/CREATININE (MASS RATIO) IN SER/PLAS 14.1 Normal [facility] Comment on above: Performed By: #### L [id number] ####[facility] ([facility])[address] [address] CBCon 04-26-2025 Erythrocyte distribution width (RBC) [Ratio] 14.0 % Normal 11.5-15.0 [facility] Comment on above: Performed By: #### L [id number] ####[facility] (BEAKER)[address] [address] ERYTHROCYTE MEAN CORPUSCULAR HEMOGLOBIN CONCENTRATION (G/DL) BY AUTOMATED 34.8 g/dL Normal 32.0-35.0 [facility] Comment on above: Performed By: #### L [id number] ####[facility] (BEAKER)[address] [address] Hematocrit (Bld) [Volume fraction] 29.3 % Low 39.0-50.0 [facility] Comment on above: Performed By: #### L [id number] ####[facility] (BEAKER)[address] [address] Hemoglobin (Bld) [Mass/Vol] 10.2 g/dL Low 13.0-17.0 [facility] Comment on above: Performed By: #### L [id number] ####[facility] (BEAKER)[address] [place] [address] MCH (RBC) [Entitic mass] 32.2 pg Normal 27.0-33.0 [facility] Comment on above: Performed By: #### L [id number] ####[facility] (BEAKER)[address] [place] [address] MCV (RBC) [Entitic vol] 92.4 fL Normal 82.0-98.0 [facility] Comment on above: Performed By: #### L [id number] ####[facility] (BEAKER)[address] [place] [address] PLATELETS (10*3/UL) IN BLOOD AUTOMATED COUNT 233 10*3/uL Normal 150-400 [facility] Comment on above: Performed By: #### L [id number] ####[facility] (BEAKER)[address] [address] RBC (Bld) [#/Vol] 3.17 10*6/uL Low 4.20-5.70 [facility] Comment on above: Performed By: #### L [id number] ####[facility] (BEAKER)[address] [place] [address] WBC (Bld) [#/Vol] 6.84 10*3/uL Normal 4.00-10.60 [facility] Comment on above: Performed By: #### L [id number] ####[facility] (BEAKER)[address] [place] [address] CO-OXIMETRYon 04-26-2025 Hemoglobin (Bld) [Mass/Vol] 10.9 g/dL Normal [facility] Comment on above: Performed By: #### L [id number] ####[facility] [id number] [place] [address] [place] Oxygen saturation in Blood 59.6 % Normal [facility] Comment on above: Performed By: #### L [id number] ####[facility] [id number] [place] [address] [place] OXYGENATED HEMOGLOBIN IN BLOOD 58.7 % Normal [facility] Comment on above: Performed By: #### L [id number] ####[facility] [id number] [place] [address] [place] CREATININE, URINE, RANDOMon 04-26-2025 Creatinine (U) [Mass/Vol] 83.0 mg/dL Normal 26-299 [facility] Comment on above: Performed By: #### L [id number] ####[facility] (BEAKER)[address] [place] [address] MAGNESIUMon 04-26-2025 Magnesium [Mass/Vol] 2.0 mg/dL Normal 1.9-2.7 [facility] Comment on above: Performed By: #### L [id number] ####[facility] (BEAKER)[address] [place] [address] Magnesium [Mass/Vol] 2.1 mg/dL Normal 1.9-2.7 [facility] Comment on above: Performed By: #### L [id number] ####[facility] ([facility]AKER)[address] [place] [address] Magnesium [Mass/Vol] 1.8 mg/dL Low 1.9-2.7 [facility] Comment on above: Performed By: #### L [id number] ####[facility] ([facility])[address] [place] [address] PHOSPHORUSon 04-26-2025 Magnesium [Mass/Vol] 3.4 mg/dL Normal 2.5-5.0 [facility] Comment on above: Performed By: #### L [id number] ####[facility] ([facility])[address] [place] [address] Magnesium [Mass/Vol] 2.8 mg/dL Normal 2.5-5.0 [facility] Comment on above: Performed By: #### L [id number] ####[facility] ([facility])[address] [place] [address] Magnesium [Mass/Vol] 2.6 mg/dL Normal 2.5-5.0 [facility] Comment on above: Performed By: #### L [id number] ####[facility] ([facility])[address] [place] [address] SODIUM, URINE, RANDOMon Sodium (U) [Moles/Vol] 92 mmol/L Normal [facility] Comment on above: Performed By: #### L [id number] ####[facility] ([facility])[address] [place] [address] UREA NITROGEN, URINEon 04-26 Urea nitrogen (U) [Mass/Vol] 237 mg/dL Normal [facility] Comment on above: Performed By: #### L [id number] ####[facility] ([facility])[address] [place] [address] URINALYSISon 04-26-2025 BILIRUBIN, TOTAL PRESENCE IN URINE Negative Normal Negative [facility] Comment on above: Order Comment: Micro scopics not performed on urines with negative chemical reactions unless requested on original order. Performed By: #### L [id number] ####[facility] ([facility])[address] [place] [address] Clarity (U) Clear Normal Clear [facility] Comment on above: Order Comment: Micro scopics not performed on urines with negative chemical reactions unless requested on original order. Performed By: #### L [id number] ####[facility] ([facility])[address] [place] [address] Color (U) Light-Yellow Normal Colorless, Yellow, Light-Yellow [facility] Comment on above: Order Comment: Micro scopics not performed on urines with negative chemical reactions unless requested on original order. Performed By: #### L [id number] ####[facility] ([facility])[address] , [place] [address] Glucose (U) [Mass/Vol] 250 mg/dL Abnormal Normal [facility] Comment on above: Order Comment: Micro scopics not performed on urines with negative chemical reactions unless requested on original order. Performed By: #### L [id number] ####[facility] ([facility])[address] , [place] [address] HEMOGLOBIN PRESENCE IN URINE Negative Normal Negative [facility] Comment on above: Order Comment: Micro scopics not performed on urines with negative chemical reactions unless requested on original order. Performed By: #### L [id number] ####[facility] ([facility])[address] , [place] [address] Ketones Ql (U) Negative Normal Negative [facility] Comment on above: Order Comment: Micro scopics not performed on urines with negative chemical reactions unless requested on original order. Performed By: #### L [id number] ####[facility] ([facility])[address] , [place] [address] LEUKOCYTE ESTERASE PRESENCE IN URINE BY TEST STRIP Negative Normal Negative [facility] Comment on above: Order Comment: Micro scopics not performed on urines with negative chemical reactions unless requested on original order. Performed By: #### L [id number] ####[facility] ([facility])[address] , [place] [address] NITRITE PRESENCE IN URINE Negative Normal Negative [facility] Comment on above: Order Comment: Micro scopics not performed on urines with negative chemical reactions unless requested on original order. Performed By: #### L [id number] ####[facility] ([facility])[address] [place] [address] pH (U) 5.0 [pH] Normal 5.0-8.0 [facility] Comment on above: Order Comment: Micro scopics not performed on urines with negative chemical reactions unless requested on original order. Performed By: #### L [id number] ####[facility] ([facility])[address] [place] [address] Protein (U) [Mass/Vol] Negative Normal Negative [facility] Comment on above: Order Comment: Micro scopics not performed on urines with negative chemical reactions unless requested on original order. Performed By: #### L [id number] ####[facility] ([facility])[address] [place] [address] Specific gravity (U) [Rel density] 1.013 Normal 1.010-1.030 [facility] Comment on above: Order Comment: Micro scopics not performed on urines with negative chemical reactions unless requested on original order. Performed By: #### L [id number] ####[facility] ([facility])[address] [place] [address] UROBILINOGEN (MG/DL) IN URINE Normal Normal Normal [facility] Comment on above: Order Comment: Micro scopics not performed on urines with negative chemical reactions unless requested on original order. Performed By: #### L [id number] ####[facility] ([facility])[address] [place] [address] 30on 04-25-2025 30 Normal [facility] BASIC METABOLIC PANELon 10-0 Anion gap [Moles/Vol] 12 mmol/L Normal 7-20 [facility] Comment on above: Performed By: #### L [id number] ####[facility] ([facility])[address] [place] [address] Calcium [Mass/Vol] 7.1 mg/dL Low 8.6-10.3 [facility] Comment on above: Performed By: #### L [id number] ####[facility] ([facility])[address] [place] [address] Chloride [Moles/Vol] 99 mmol/L Normal 98-107 [facility] Comment on above: Performed By: #### L [id number] ####[facility] ([facility])[address] [place] [address] CO2 [Moles/Vol] 24 mmol/L Normal 21-31 [facility] Comment on above: Performed By: #### L [id number] ####[facility] ([facility])[address] [place] [address] Creatinine [Mass/Vol] 2.96 mg/dL High 0.70-1.30 [facility] Comment on above: Performed By: #### L [id number] ####[facility] ([facility])[address] [place] [address] GLOMERULAR FILTRATION RATE ML/MIN/1.73 SQ M.PREDICTED 22.2 mL/min/1.73m*2 Low >60.0 [facility] [place] Comment on above: Result Comment: The [facility]???s estimated glomerular filtration rate (eGFR) will [...] of individuals. Performed By: #### L [id number] ####[facility] ([facility])[address] [place] [address] Glucose [Mass/Vol] 130 mg/dL High 70-100 [facility] Comment on above: Performed By: #### L [id number] ####[facility] ([facility])[address] [place] [address] Potassium [Moles/Vol] 3.4 mmol/L Low 3.5-5.1 [facility] Comment on above: Performed By: #### L [id number] ####[facility] ([facility])[address] [place] [address] Sodium [Moles/Vol] 132 mmol/L Low 136-145 [facility] Comment on above: Performed By: #### L [id number] ####[facility] ([facility])[address] [place] [address] Urea nitrogen [Mass/Vol] 40 mg/dL High 7-25 [facility] Comment on above: Performed By: #### L [id number] ####[facility] ([facility])[address] [place] [address] UREA NITROGEN/CREATININE (MASS RATIO) IN SER/PLAS 13.5 Normal [facility] Comment on above: Performed By: #### L [id number] ####[facility] ([facility])[address] [place] [address] Anion gap [Moles/Vol] 12 mmol/L Normal 7-20 [facility] Comment on above: Performed By: #### L [id number] ####[facility] ([facility])[address] [place] [address] Calcium [Mass/Vol] 7.5 mg/dL Low 8.6-10.3 [facility] Comment on above: Performed By: #### L [id number] ####[facility] ([facility])[address] [place] [address] Chloride [Moles/Vol] 99 mmol/L Normal 98-107 [facility] Comment on above: Performed By: #### L [id number] ####[facility] ([facility])[address] [place] [address] CO2 [Moles/Vol] 24 mmol/L Normal 21-31 [facility] Comment on above: Performed By: #### L [id number] ####[facility] ([facility])[address] [place] [address] Creatinine [Mass/Vol] 2.57 mg/dL High 0.70-1.30 [facility] Comment on above: Performed By: #### L [id number] ####[facility] ([facility])[address] [place] [address] GLOMERULAR FILTRATION RATE ML/MIN/1.73 SQ M.PREDICTED 26.2 mL/min/1.73m*2 Low >60.0 [facility] [place] Comment on above: Result Comment: The [facility]???s estimated glomerular filtration rate (eGFR) will [...] of individuals. Performed By: #### L [id number] ####[facility] ([facility])[address] [place] [address] Glucose [Mass/Vol] 125 mg/dL High 70-100 [facility] Comment on above: Performed By: #### L [id number] ####[facility] ([facility])[address] [place] [address] Potassium [Moles/Vol] 3.7 mmol/L Normal 3.5-5.1 [facility] Comment on above: Performed By: #### L [id number] ####[facility] ([facility])[address] [place] [address] Sodium [Moles/Vol] 131 mmol/L Low 136-145 [facility] Comment on above: Performed By: #### L [id number] ####[facility] ([facility])[address] [place] [address] Urea nitrogen [Mass/Vol] 33 mg/dL High 7-25 [facility] Comment on above: Performed By: #### L [id number] ####[facility] ([facility])[address] [place] [address] UREA NITROGEN/CREATININE (MASS RATIO) IN SER/PLAS 12.8 Normal [facility] Comment on above: Performed By: #### L [id number] ####[facility] ([facility])[address] [place] [address] CBCon 04-25-2025 Erythrocyte distribution width (RBC) [Ratio] 13.9 % Normal 11.5-15.0 [facility] Comment on above: Performed By: #### L [id number] ####[facility] ([facility])[address] [address] ERYTHROCYTE MEAN CORPUSCULAR HEMOGLOBIN CONCENTRATION (G/DL) BY AUTOMATED 34.4 g/dL Normal 32.0-35.0 [facility] Comment on above: Performed By: #### L [id number] ####[facility] ([facility])[address] [place] [address] Hematocrit (Bld) [Volume fraction] 30.2 % Low 39.0-50.0 [facility] Comment on above: Performed By: #### L [id number] ####[facility] ([facility])[address] [place] [address] Hemoglobin (Bld) [Mass/Vol] 10.4 g/dL Low 13.0-17.0 [facility] Comment on above: Performed By: #### L [id number] ####[facility] ([facility])[address] [place] [address] MCH (RBC) [Entitic mass] 32.1 pg Normal 27.0-33.0 [facility] Comment on above: Performed By: #### L [id number] ####[facility] ([facility])[address] [place] [address] MCV (RBC) [Entitic vol] 93.2 fL Normal 82.0-98.0 [facility] Comment on above: Performed By: #### L [id number] ####[facility] ([facility])[address] [place] [address] PLATELETS (10*3/UL) IN BLOOD AUTOMATED COUNT 205 10*3/uL Normal 150-400 [facility] Comment on above: Performed By: #### L [id number] ####[facility] ([facility])[address] [place] [address] RBC (Bld) [#/Vol] 3.24 10*6/uL Low 4.20-5.70 [facility] Comment on above: Performed By: #### L [id number] ####[facility] ([facility])[address] [place] [address] WBC (Bld) [#/Vol] 6.72 10*3/uL Normal 4.00-10.60 [facility] Comment on above: Performed By: #### L [id number] ####[facility] ([facility])[address] [place] [address] CONSULTon 04-25-2025 CONSULT Normal [facility] MAGNESIUMon 04-25-2025 Magnesium [Mass/Vol] 1.9 mg/dL Normal 1.9-2.7 [facility] Comment on above: Performed By: #### L [id number] ####[facility] ([facility])[address] [place] [address] PHOSPHORUSon 04-25-2025 Magnesium [Mass/Vol] 3.5 mg/dL Normal 2.5-5.0 [facility] Comment on above: Performed By: #### L [id number] ####[facility] ([facility])[address] [place] [address] 30on 04-24-2025 30 The patient is Moderately Stable - Low risk of patient condition declining or worsening The patient's goals for the shift include comfort The clinical goals for the shift include VSS, safety Normal [facility] ANESon 04-24-2025 ANES Normal [facility] BASIC METABOLIC PANELon 10- Anion gap [Moles/Vol] 16 mmol/L Normal 02-04 [facility] Comment on above: Performed By: #### L [id number] ####[facility] ([facility])[address] [place] [address] Calcium [Mass/Vol] 8.0 mg/dL Low 8.6-10.3 [facility] Comment on above: Performed By: #### L [id number] ####[facility] ([facility])[address] [place] [address] Chloride [Moles/Vol] 100 mmol/L Normal 98-107 [facility] Comment on above: Performed By: #### L [id number] ####[facility] ([facility])[address] [place] [address] CO2 [Moles/Vol] 19 mmol/L Low 21-31 [facility] Comment on above: Performed By: #### L [id number] ####[facility] ([facility])[address] [place] [address] Creatinine [Mass/Vol] 1.45 mg/dL High 0.70-1.30 [facility] Comment on above: Performed By: #### L [id number] ####[facility] ([facility])[address] [place] [address] GLOMERULAR FILTRATION RATE ML/MIN/1.73 SQ M.PREDICTED 52.2 mL/min/1.73m*2 Low >60.0 [facility] [place] Comment on above: Result Comment: The [facility]???s estimated glomerular filtration rate (eGFR) will [...] of individuals. Performed By: #### L [id number] ####[facility] ([facility])[address] [place] [address] Glucose [Mass/Vol] 122 mg/dL High 70-100 [facility] Comment on above: Performed By: #### L [id number] ####[facility] ([facility])[address] [place] [address] Potassium [Moles/Vol] 3.9 mmol/L Normal 3.5-5.1 [facility] Comment on above: Performed By: #### L [id number] ####[facility] ([facility])[address] [place] [address] Sodium [Moles/Vol] 131 mmol/L Low 136-145 [facility] Comment on above: Performed By: #### L [id number] ####[facility] ([facility])[address] [place] [address] Urea nitrogen [Mass/Vol] 24 mg/dL Normal 7-25 [facility] Comment on above: Performed By: #### L [id number] ####[facility] ([facility])[address] [place] [address] UREA NITROGEN/CREATININE (MASS RATIO) IN SER/PLAS 16.6 Normal [facility] Comment on above: Performed By: #### L [id number] ####[facility] ([facility])[address] [place] [address] CBCon 04-24-2025 Erythrocyte distribution width (RBC) [Ratio] 13.9 % Normal 11.5-15.0 [facility] Comment on above: Performed By: #### L [id number] ####[facility] ([facility])[address] [place] [address] ERYTHROCYTE MEAN CORPUSCULAR HEMOGLOBIN CONCENTRATION (G/DL) BY AUTOMATED 33.8 g/dL Normal 32.0-35.0 [facility] Comment on above: Performed By: #### L [id number] ####[facility] ([facility])[address] [place] [address] Hematocrit (Bld) [Volume fraction] 33.1 % Low 39.0-50.0 [facility] Comment on above: Performed By: #### L [id number] ####[facility] ([facility])[address] [place] [address] Hemoglobin (Bld) [Mass/Vol] 11.2 g/dL Low 13.0-17.0 [facility] Comment on above: Performed By: #### L [id number] ####[facility] ([facility])[address] [place] [address] MCH (RBC) [Entitic mass] 31.8 pg Normal 27.0-33.0 [facility] Comment on above: Performed By: #### L [id number] ####[facility] ([facility])[address] [place] [address] MCV (RBC) [Entitic vol] 94.0 fL Normal 82.0-98.0 [facility] Comment on above: Performed By: #### L [id number] ####[facility] ([facility])[address] [place] [address] PLATELETS (10*3/UL) IN BLOOD AUTOMATED COUNT 209 10*3/uL Normal 150-400 [facility] Comment on above: Performed By: #### L [id number] ####[facility] ([facility])[address] [place] [address] RBC (Bld) [#/Vol] 3.52 10*6/uL Low 4.20-5.70 [facility] Comment on above: Performed By: #### L [id number] ####[facility] ([facility])[address] [place] [address] WBC (Bld) [#/Vol] 5.70 10*3/uL Normal 4.00-10.60 [facility] Comment on above: Performed By: #### L [id number] ####[facility] ([facility])[address] [place] [address] HPon 04-24-2025 HP Normal [facility] HP H&P reviewed. The patient was examined and there are no changes to the H&P. He continues to be hypotensive. We will proceed with right heart catheterization as requested by the primary cardiology service. Normal [facility] LIPID PANELon 04-24-2025 CHOL/HDL 3.4 mg/dL Normal [facility] Comment on above: Performed By: #### L [id number] ####[facility] ([facility])[address] [place] [address] Cholesterol [Mass/Vol] 98 mg/dL Low 120-200 [facility] Comment on above: Performed By: #### L [id number] ####[facility] ([facility])[address] [place] [address] Magnesium [Mass/Vol] 75 mg/dL Normal <150 [facility] Comment on above: Result Comment: TRIG LYCERIDE REFERENCE RANGE:20 YEARS AND OLDER CARDIOVASCULAR RISKLESS THAN 150 mg/dL LOW [id number] TO 199 mg/dL BORDERLINE [id number] mg/dL AND GREATER HIGH RISK Performed By: #### L [id number] ####[facility] ([facility])[address] [address] Magnesium [Mass/Vol] 54 mg/dL Normal 0-160 [facility] Comment on above: Performed By: #### L [id number] ####[facility] ([facility])[address] [address] Magnesium [Mass/Vol] 29 mg/dL Normal 23-92 [facility] Comment on above: Performed By: #### L [id number] ####[facility] ([facility])[address] [address] NON HDL CHOL. (LDL+VLDL) 69 Normal [facility] Comment on above: Performed By: #### L [id number] ####[facility] ([facility])[address] [place] [address] TOTAL VLDL-C 15 mg/dL Normal 0-40 [facility] Comment on above: Performed By: #### L [id number] ####[facility] ([facility])[address] [address] MAGNESIUMon 04-24-2025 Magnesium [Mass/Vol] 1.9 mg/dL Normal 1.9-2.7 [facility] Comment on above: Performed By: #### L [id number] ####[facility] ([facility])[address] [place] [address] 30on 04-23-2025 30 Normal [facility] 30 Normal [facility] C-REACTIVE PROTEINon 025 C REACTIVE PROTEIN (MG/L) IN SER/PLAS 39.4 mg/L High <=5.0 [facility] Comment on above: Result Comment: Test ing performed using a new methodology, turbidimetry. Normal ranges have been updated. Old normal range was <8 mg/L. Performed By: #### L [id number] ####[facility] ([facility])[address] [place] [address] CBC WITH AUTO DIFFERENTIALon 04-23-2025 Basophils (Bld) [#/Vol] 0.03 10*3/uL Normal 0.00-0.20 [facility] Comment on above: Performed By: #### L [id number] ####[facility] ([facility])[address] [place] [address] Basophils/100 WBC (Bld) 0.5 % Normal 0.0-1.0 [facility] Comment on above: Performed By: #### L [id number] ####[facility] ([facility])[address] [place] [address] Eosinophils (Bld) [#/Vol] 0.10 10*3/uL Normal 0.00-0.50 [facility] Comment on above: Performed By: #### L [id number] ####[facility] ([facility])[address] [place] [address] Eosinophils/100 WBC (Bld) 1.8 % Normal 0.0-6.0 [facility] Comment on above: Performed By: #### L [id number] ####[facility] ([facility])[address] [place] [address] Erythrocyte distribution width (RBC) [Ratio] 13.9 % Normal 11.5-15.0 [facility] Comment on above: Performed By: #### L [id number] ####[facility] ([facility])[address] [place] [address] ERYTHROCYTE MEAN CORPUSCULAR HEMOGLOBIN CONCENTRATION (G/DL) BY AUTOMATED 34.0 g/dL Normal 32.0-35.0 [facility] Comment on above: Performed By: #### L [id number] ####[facility] ([facility])[address] [place] [address] Hematocrit (Bld) [Volume fraction] 35.0 % Low 39.0-50.0 [facility] Comment on above: Performed By: #### L [id number] ####[facility] ([facility])[address] [place] [address] Hemoglobin (Bld) [Mass/Vol] 11.9 g/dL Low 13.0-17.0 [facility] Comment on above: Performed By: #### L [id number] ####[facility] ([facility])[address] [place] [address] Immature granulocytes (Bld) [#/Vol] 0.02 10*3/uL Normal 0.00-0.20 [facility] Comment on above: Performed By: #### L [id number] ####[facility] ([facility])[address] [place] [address] Immature granulocytes/100 WBC (Bld) 0.4 % Normal 0.0-1.0 [facility] Comment on above: Performed By: #### L [id number] ####[facility] ([facility])[address] [place] [address] Lymphocytes (Bld) [#/Vol] 1.26 10*3/uL Normal 1.20-4.00 [facility] Comment on above: Performed By: #### L [id number] ####[facility] ([facility])[address] [place] [address] Lymphocytes/100 WBC (Bld) 22.5 % Normal 20.0-45.0 [facility] Comment on above: Performed By: #### L [id number] ####[facility] ([facility])[address] [place] [address] MCH (RBC) [Entitic mass] 31.9 pg Normal 27.0-33.0 [facility] Comment on above: Performed By: #### L [id number] ####[facility] ([facility])[address] [place] [address] MCV (RBC) [Entitic vol] 93.8 fL Normal 82.0-98.0 [facility] Comment on above: Performed By: #### L [id number] ####[facility] ([facility])[address] [place] [address] Monocytes (Bld) [#/Vol] 0.99 10*3/uL Normal 0.10-1.00 [facility] Comment on above: Performed By: #### L [id number] ####[facility] ([facility])[address] [place] [address] Monocytes/100 WBC (Bld) 17.7 % High 5.0-12.0 [facility] Comment on above: Performed By: #### L [id number] ####[facility] ([facility])[address] [place] [address] Neutrophils (Bld) [#/Vol] 3.20 10*3/uL Normal 1.60-7.60 [facility] Comment on above: Performed By: #### L [id number] ####[facility] ([facility])[address] [place] [address] Neutrophils/100 WBC (Bld) 57.1 % Normal 40.0-72.0 [facility] Comment on above: Performed By: #### L [id number] ####[facility] ([facility])[address] [place] [address] NRBC (PER 100 WBCS) BY AUTOMATED COUNT 0.0 % Normal 0 [facility] Comment on above: Performed By: #### L [id number] ####[facility] ([facility])[address] [place] [address] PLATELETS (10*3/UL) IN BLOOD AUTOMATED COUNT 223 10*3/uL Normal 150-400 [facility] Comment on above: Performed By: #### L [id number] ####[facility] ([facility])[address] [place] [address] RBC (Bld) [#/Vol] 3.73 10*6/uL Low 4.20-5.70 [facility] Comment on above: Performed By: #### L [id number] ####[facility] ([facility])[address] [place] [address] WBC (Bld) [#/Vol] 5.60 10*3/uL Normal 4.00-10.60 [facility] Comment on above: Performed By: #### L [id number] ####[facility] ([facility])[address] [place] [address] COMPREHENSIVE METABOLIC PANE Conor 04-23-2025 Albumin [Mass/Vol] 3.7 g/dL Normal 3.5-5.7 [facility] Comment on above: Performed By: #### L [id number] ####[facility] ([facility])[address] [place] [address] ALP [Catalytic activity/Vol] 48 U/L Normal 34-104 [facility] Comment on above: Performed By: #### L [id number] ####[facility] ([facility])[address] [place] [address] ALT [Catalytic activity/Vol] 18 U/L Normal 7-52 [facility] Comment on above: Performed By: #### L [id number] ####[facility] ([facility])[address] [place] [address] Anion gap [Moles/Vol] 13 mmol/L Normal 7-20 [facility] Comment on above: Performed By: #### L [id number] ####[facility] ([facility])[address] [place] [address] AST [Catalytic activity/Vol] 34 U/L Normal 13-39 [facility] Comment on above: Performed By: #### L [id number] ####[facility] ([facility])[address] [place] [address] Bilirubin [Mass/Vol] 0.5 mg/dL Normal 0.3-1.0 [facility] Comment on above: Performed By: #### L [id number] ####[facility] ([facility])[address] [place] [address] Calcium [Mass/Vol] 8.4 mg/dL Low 8.6-10.3 [facility] Comment on above: Performed By: #### L [id number] ####[facility] ([facility])[address] [place] [address] Chloride [Moles/Vol] 99 mmol/L Normal 98-107 [facility] Comment on above: Performed By: #### L [id number] ####[facility] [facility] ([facility])[address] [place] [address] CO2 [Moles/Vol] 26 mmol/L Normal 21-31 [facility] Comment on above: Performed By: #### L [id number] ####[facility] ([facility])[address] [place] [address] Creatinine [Mass/Vol] 1.11 mg/dL Normal 0.70-1.30 [facility] Comment on above: Performed By: #### L [id number] ####[facility] ([facility])[address] [place] [address] GLOMERULAR FILTRATION RATE ML/MIN/1.73 SQ M.PREDICTED 71.9 mL/min/1.73m*2 Normal >60.0 [facility] [place] Comment on above: Result Comment: The [facility]???s estimated glomerular filtration rate (eGFR) will [...] of individuals. Performed By: #### L [id number] ####[facility] ([facility])[address] [place] [address] Glucose [Mass/Vol] 125 mg/dL High 70-100 [facility] Comment on above: Performed By: #### L [id number] ####[facility] ([facility])[address] [place] [address] Potassium [Moles/Vol] 4.1 mmol/L Normal 3.5-5.1 [facility] Comment on above: Performed By: #### L [id number] ####[facility] ([facility])[address] [place] [address] Protein [Mass/Vol] 6.8 g/dL Normal 6.0-8.3 [facility] Comment on above: Performed By: #### L [id number] ####[facility] ([facility])[address] [place] [address] Sodium [Moles/Vol] 134 mmol/L Low 136-145 [facility] Comment on above: Performed By: #### L [id number] ####[facility] ([facility])[address] [place] [address] Urea nitrogen [Mass/Vol] 18 mg/dL Normal 7-25 [facility] Comment on above: Performed By: #### L [id number] ####[facility] ([facility])[address] [place] [address] UREA NITROGEN/CREATININE (MASS RATIO) IN SER/PLAS 16.2 Normal [facility] Comment on above: Performed By: #### L [id number] ####[facility] ([facility])[address] [place] [address] CT CERVICAL SPINE WO IV CONT RASTon 04-23-2025 CT CERVICAL SPINE WO IV CONTRAST Invalid Interpretation Code [facility] CT HEAD WO IV CONTRASTon CT HEAD WO IV CONTRAST Invalid Interpretation Code [facility] CTA CHEST W IV CONTRASTon CTA CHEST W IV CONTRAST Normal [facility] MAGNESIUMon 04-23-2025 Magnesium [Mass/Vol] 1.6 mg/dL Low 1.9-2.7 [facility] Comment on above: Performed By: #### L [id number] ####[facility] [place] [address] NURSNOTEon 04-23-2025 NURSNOTE Normal [facility] 30on 04-22-2025 30 Normal [facility] 30 The patient is Moderately Stable - Low risk of patient condition declining or worsening The patient's goals for the shift include comfort, rest The clinical goals for the shift include stable hemodynamics Normal [facility] 30on 04-21-2025 30 [facility] 30 [facility] 30on 04-20-2025 30 [facility] 30 [facility] BASIC METABOLIC PANELon 10- Anion gap [Moles/Vol] 12 mmol/L Normal 7-20 [facility] Comment on above: Performed By: #### L [id number] ####[facility])[address] [place] [address] Calcium [Mass/Vol] 8.8 mg/dL Normal 8.6-10.3 [facility] Comment on above: Performed By: #### L [id number] ####[facility] ([facility])[address] [place] [address] Chloride [Moles/Vol] 93 mmol/L Low 98-107 [facility] Comment on above: Performed By: #### L [id number] ####[facility] [place] [address] CO2 [Moles/Vol] 26 mmol/L Normal 21-31 [facility] Comment on above: Performed By: #### L [id number] ####[facility] [place] [address] Creatinine [Mass/Vol] 0.94 mg/dL Normal 0.70-1.30 [facility] Comment on above: Performed By: #### L [id number] ####[facility] ([facility])[address] [place] [address] GLOMERULAR FILTRATION RATE ML/MIN/1.73 SQ M.PREDICTED 87.8 mL/min/1.73m*2 Normal >60.0 [facility] [place] Comment on above: Result Comment: The [facility]???s estimated glomerular filtration rate (eGFR) will [...] of individuals. Performed By: #### L [id number] ####[facility] ([facility])[address] [place] [address] Glucose [Mass/Vol] 127 mg/dL High 70-100 [facility] Comment on above: Performed By: #### L [id number] ####[facility] ([facility])[address] [place] [address] Potassium [Moles/Vol] 3.9 mmol/L Normal 3.5-5.1 [facility] Comment on above: Performed By: #### L [id number] ####[facility] ([facility])[address] [place] [address] Sodium [Moles/Vol] 127 mmol/L Low 136-145 [facility] Comment on above: Performed By: #### L [id number] ####[facility] ([facility])[address] [place] [address] Urea nitrogen [Mass/Vol] 16 mg/dL Normal 7-25 [facility] Comment on above: Performed By: #### L [id number] ####[facility] ([facility])[address] [place] [address] UREA NITROGEN/CREATININE (MASS RATIO) IN SER/PLAS 17.0 Normal [facility] Comment on above: Performed By: #### L [id number] ####[facility] ([facility])[address] [place] [address] BLOOD CULTUREon 04-20-2025 Bacteria identified Cx Nom (Bld) No growth at 5 days Normal [facility] Comment on above: Performed By: #### L [id number] ####[facility] ([facility])[address] [place] [address] Order Comment: From a different site than #1. CBCon 04-20-2025 Erythrocyte distribution width (RBC) [Ratio] 13.9 % Normal 11.5-15.0 [facility] Comment on above: Performed By: #### L [id number] ####[facility] ([facility])[address] [place] [address] ERYTHROCYTE MEAN CORPUSCULAR HEMOGLOBIN CONCENTRATION (G/DL) BY AUTOMATED 35.6 g/dL High 32.0-35.0 [facility] Comment on above: Performed By: #### L [id number] ####[facility] ([facility])[address] [place] [address] Hematocrit (Bld) [Volume fraction] 34.0 % Low 39.0-50.0 [facility] Comment on above: Performed By: #### L [id number] ####[facility] ([facility])[address] [place] [address] Hemoglobin (Bld) [Mass/Vol] 12.1 g/dL Low 13.0-17.0 [facility] Comment on above: Performed By: #### L [id number] ####[facility] ([facility])[address] [place] [address] MCH (RBC) [Entitic mass] 32.3 pg Normal 27.0-33.0 [facility] Comment on above: Performed By: #### L [id number] ####[facility] ([facility])[address] [place] [address] MCV (RBC) [Entitic vol] 90.7 fL Normal 82.0-98.0 [facility] Comment on above: Performed By: #### L [id number] ####[facility] ([facility])[address] [place] [address] PLATELETS (10*3/UL) IN BLOOD AUTOMATED COUNT 160 10*3/uL Normal 150-400 [facility] Comment on above: Performed By: #### L [id number] ####[facility] ([facility])[address] [place] [address] RBC (Bld) [#/Vol] 3.75 10*6/uL Low 4.20-5.70 [facility] Comment on above: Performed By: #### L [id number] ####[facility] ([facility])[address] [place] [address] WBC (Bld) [#/Vol] 7.50 10*3/uL Normal 4.00-10.60 [facility] Comment on above: Performed By: #### L [id number] ####[facility] ([facility])[address] [place] [address] CORTISOLon 04-20-2025 CORTISOL (UG/DL) IN SER/PLAS 11.2 ug/dL Normal 6-23 [facility] Comment on above: Performed By: #### L [id number] ####[facility] ([facility])[address] [place] [address] OSMOLALITYon 04-20-2025 OSMOLALITY MEASURED 276 mOsm/kg Normal 275-295 [facility] Comment on above: Result Comment: Test Performed by [employer] [address] [place] [address] - Released 04/20/2025 19:48 Performed By: #### L [id number] ####[facility] [id number] [place] [address] 30on 04-19-2025 30 The patient is Moderately Stable - Low risk of patient condition declining or worsening The patient's goals for the shift include Neck/Chest pain The clinical goals for the shift include stable vital signs Normal [facility] ANAon 04-19-2025 COLLIN TITER <1:40 Normal <=1:40 [facility] Comment on above: Result Comment: Test performed using DAVID IFA COLLIN Hep-2 Test, a pre-standardized assay designed for the qualitative and semi-quantitative detection of antinuclear antibodies. Performed By: #### L [id number] ####[facility] ([facility])[address] [place] [address] ANESon 04-19-2025 ANES Normal [facility] B-TYPE NATRIURETIC PEPTIDEon 04-19-2025 Natriuretic peptide B (Bld) [Mass/Vol] 254 pg/mL High 0-100 [facility] Comment on above: Performed By: #### L [id number] ####[facility] ([facility] [place] [address] BODY FLUID CELL DIFFERENTIAL on 04-19-2025 BASOPHILS TOTAL PER COUNTED LEUKOCYTES IN BODY FLUID BY MANUAL COUNT Normal [facility] Comment on above: Order Comment: Diffe rential performed on cytospin Performed By: #### L [id number] ####[facility] ([facility])[address] , [place] [address] CELLS COUNTED TOTAL (#) IN BODY FLUID 100 Normal [facility] Comment on above: Order Comment: Diffe rential performed on cytospin Performed By: #### L [id number] ####[facility] ([facility])[address] [place] [address] EOSINOPHILS TOTAL PER COUNTED LEUKOCYTES IN BODY FLUID BY MANUAL COUNT Normal [facility] Comment on above: Order Comment: Diffe rential performed on cytospin Performed By: #### L [id number] ####[facility] ([facility])[address] , [place] [address] LYMPHOCYTES TOTAL PER COUNTED LEUKOCYTES IN BODY FLUID BY MANUAL COUNT 1 Normal [facility] Comment on above: Order Comment: Diffe rential performed on cytospin Performed By: #### L [id number] ####[facility] ([facility])[address] [place] [address] MESOTHELIAL CELLS TOTAL PER COUNTED LEUKOCYTES IN BODY FLUID BY MANUAL COUN 3 Normal [facility] Comment on above: Order Comment: Diffe rential performed on cytospin Performed By: #### L [id number] ####[facility] ([facility])[address] , [place] [address] MONOCYTES+MACROPHAGE S TOTAL PER COUNTED LEUKOCYTES IN BODY FLUID BY MANUAL Normal [facility] Comment on above: Order Comment: Diffe rential performed on cytospin Performed By: #### L [id number] ####[facility] ([facility])[address] [place] [address] NEUTROPHILS TOTAL PER COUNTED LEUKOCYTES IN BODY FLUID BY MANUAL COUNT 96 Normal [facility] Comment on above: Order Comment: Diffe rential performed on cytospin Performed By: #### L [id number] ####[facility] ([facility])[address] [place] [address] OTHER CELLS BODY FLUID (MANUAL) Normal [facility] Comment on above: Order Comment: Diffe rential performed on cytospin Performed By: #### L [id number] ####[facility] ([facility])[address] , [place] [address] BODY FLUID CULTUREon 025 Bacteria identified Cx Nom (Unsp spec) No growth at 5 days Normal [facility] Comment on above: Performed By: #### L [id number] ####[facility] ([facility])[address] [place] [address] GRAM STAIN RESULT Normal [facility] Comment on above: Result Comment: No p olymorphonuclear leukocytes seenNo organisms seen Performed By: #### L [id number] ####[facility] ([facility])[address] [place] [address] C-REACTIVE PROTEINon 025 C REACTIVE PROTEIN (MG/L) IN SER/PLAS 145.7 mg/L High <=5.0 [facility] Comment on above: Result Comment: Test ing performed using a new methodology, turbidimetry. Normal ranges have been updated. Old normal range was <8 mg/L. Performed By: #### L [id number] ####[facility] ([facility])[address] [place] [address] CBCon 04-19-2025 Erythrocyte distribution width (RBC) [Ratio] 13.8 % Normal 11.5-15.0 [facility] Comment on above: Performed By: #### L [id number] ####[facility] ([facility])[address] [address] ERYTHROCYTE MEAN CORPUSCULAR HEMOGLOBIN CONCENTRATION (G/DL) BY AUTOMATED 35.3 g/dL High 32.0-35.0 [facility] Comment on above: Performed By: #### L [id number] ####[facility] ([facility])[address] [place] [address] Hematocrit (Bld) [Volume fraction] 36.8 % Low 39.0-50.0 [facility] Comment on above: Performed By: #### L [id number] ####[facility] ([facility])[address] [place] [address] Hemoglobin (Bld) [Mass/Vol] 13.0 g/dL Normal 13.0-17.0 [facility] Comment on above: Performed By: #### L [id number] ####[facility] ([facility])[address] [place] [address] MCH (RBC) [Entitic mass] 32.3 pg Normal 27.0-33.0 [facility] Comment on above: Performed By: #### L [id number] ####[facility] ([facility])[address] [place] [address] MCV (RBC) [Entitic vol] 91.5 fL Normal 82.0-98.0 [facility] Comment on above: Performed By: #### L [id number] ####[facility] ([facility])[address] [place] [address] PLATELETS (10*3/UL) IN BLOOD AUTOMATED COUNT 185 10*3/uL Normal 150-400 [facility] Comment on above: Performed By: #### L [id number] ####[facility] ([facility])[address] [place] [address] RBC (Bld) [#/Vol] 4.02 10*6/uL Low 4.20-5.70 [facility] Comment on above: Performed By: #### L [id number] ####[facility] ([facility])[address] [place] [address] WBC (Bld) [#/Vol] 10.71 10*3/uL High 4.00-10.60 [facility] Comment on above: Performed By: #### L [id number] ####[facility] ([facility])[address] [place] [address] COMPREHENSIVE METABOLIC PANE Conor 04-19-2025 Albumin [Mass/Vol] 3.8 g/dL Normal 3.5-5.7 [facility] Comment on above: Performed By: #### L [id number] ####[facility] ([facility])[address] [place] [address] ALP [Catalytic activity/Vol] 51 U/L Normal 34-104 [facility] Comment on above: Performed By: #### L [id number] ####[facility] ([facility])[address] [place] [address] ALT [Catalytic activity/Vol] 27 U/L Normal 7-52 [facility] Comment on above: Performed By: #### L [id number] ####[facility] ([facility])[address] [place] [address] Anion gap [Moles/Vol] 12 mmol/L Normal 7-20 [facility] Comment on above: Performed By: #### L [id number] ####[facility] ([facility])[address] [place] [address] AST [Catalytic activity/Vol] 22 U/L Normal 13-39 [facility] Comment on above: Performed By: #### L [id number] ####[facility] ([facility])[address] [place] [address] Bilirubin [Mass/Vol] 0.7 mg/dL Normal 0.3-1.0 [facility] Comment on above: Performed By: #### L [id number] ####[facility] ([facility])[address] [place] [address] Calcium [Mass/Vol] 9.5 mg/dL Normal 8.6-10.3 [facility] Comment on above: Performed By: #### L [id number] ####[facility] ([facility])[address] [place] [address] Chloride [Moles/Vol] 91 mmol/L Low 98-107 [facility] Comment on above: Performed By: #### L [id number] ####[facility] ([facility])[address] [place] [address] CO2 [Moles/Vol] 28 mmol/L Normal 21-31 [facility] Comment on above: Performed By: #### L [id number] ####[facility] ([facility])[address] [place] [address] Creatinine [Mass/Vol] 0.98 mg/dL Normal 0.70-1.30 [facility] Comment on above: Performed By: #### L [id number] ####[facility] ([facility])[address] [place] [address] GLOMERULAR FILTRATION RATE ML/MIN/1.73 SQ M.PREDICTED 83.5 mL/min/1.73m*2 Normal >60.0 [facility] [place] Comment on above: Result Comment: The [facility]???s estimated glomerular filtration rate (eGFR) will [...] of individuals. Performed By: #### L [id number] ####[facility] ([facility])[address] [place] [address] Glucose [Mass/Vol] 109 mg/dL High 70-100 [facility] Comment on above: Performed By: #### L [id number] ####[facility] ([facility])[address] [place] [address] Potassium [Moles/Vol] 5.0 mmol/L Normal 3.5-5.1 [facility] Comment on above: Performed By: #### L [id number] ####[facility] ([facility])[address] [place] [address] Protein [Mass/Vol] 6.8 g/dL Normal 6.0-8.3 [facility] Comment on above: Performed By: #### L [id number] ####[facility] ([facility])[address] [place] [address] Sodium [Moles/Vol] 126 mmol/L Low 136-145 [facility] Comment on above: Performed By: #### L [id number] ####[facility] ([facility])[address] [place] [address] Urea nitrogen [Mass/Vol] 17 mg/dL Normal 7-25 [facility] Comment on above: Performed By: #### L [id number] ####[facility] ([facility])[address] [place] [address] UREA NITROGEN/CREATININE (MASS RATIO) IN SER/PLAS 17.3 [facility] Comment on above: Performed By: #### L [id number] ####[facility] ([facility])[address] [place] [address] CONSULTon 04-19-2025 CONSULT [facility] HIGH SENSITIVITY TROPONIN Io n 04-19-2025 HS TROPONIN I (NG/L) 7 ng/L Normal <20 [facility] Comment on above: Performed By: #### L [id number] ####[facility] ([facility])[address] [place] [address] HPon 04-19-2025 [facility] NON-REGIONAL CLINICAL RESEARCH ASSOCIATE CYTOLOGY - CELLULAR EXAMon 04-19-2025 LAB AP CASE REPORT Normal [facility] Comment on above: Result Comment: Non- gynecologic Cytology Case: [id number] Provider: Venu Mancilla MD Collected: 04/19/2025 1523[facility] Received: 04/19/2025 1533Pathologist: ADAMA Jonaspecimen: Pericardial Fluid Performed By: #### L [id number] ####[facility] ([facility])[address] [place] [address] LAB AP CLINICAL INFORMATION Pericardial effusion Normal [facility] Comment on above: Performed By: #### L [id number] ####[facility] ([facility])[address] [place] [address] LAB AP GROSS DESCRIPTION 250 mL opaque, red fluid Normal [facility] Comment on above: Performed By: #### L [id number] ####[facility] ([facility])[address] [place] [address] LAB AP REPORT FINAL DIAGNOSIS NARRATIVE Normal [facility] [place] Comment on above: Result Comment: A. P ericardial fluid: - Negative for malignancy. - Marked acute inflammation. at 1746 EDT Performed By: #### L [id number] ####[facility] ([facility])[address] [place] [address] OSMOLALITYon 04-19-2025 OSMOLALITY MEASURED 268 mOsm/kg Low 275-295 [facility] Comment on above: Result Comment: Test Performed by [employer] [address] [place] [address] - Released 04/20/2025 15:14 Performed By: #### L [id number] ####[facility] [id number] [place] [address] PATHOLOGY REVIEWon PATHOLOGY REVIEW Reviewed. Normal [facility] Comment on above: Result Comment: Elec tronically signed by Kristy Dsouza MD on 04/20/25 at 9:17 AM. Performed By: #### L [id number] ####[facility] [place] [address] SEDIMENTATION RATEon 025 SEDIMENTATION RATE, ERYTHROCYTE 18 mm/hr Normal <20 [facility] Comment on above: Performed By: #### L [id number] ####[facility] ([facility])[address] [place] [address] SODIUM, URINE, RANDOMon Sodium (U) [Moles/Vol] 59 mmol/L Normal [facility] Comment on above: Performed By: #### L [id number] ####[facility] ([facility])[address] [place] [address] BASIC METABOLIC PANELon Anion gap [Moles/Vol] 13 mmol/L Normal 7-20 [facility] Comment on above: Performed By: #### L [id number] ####[facility] ([facility])[address] [place] [address] Calcium [Mass/Vol] 10.4 mg/dL High 8.6-10.3 [facility] Comment on above: Performed By: #### L [id number] ####[facility])[address] [place] [address] Chloride [Moles/Vol] 95 mmol/L Low 98-107 [facility] Comment on above: Performed By: #### L [id number] ####[facility])[address] [place] [address] CO2 [Moles/Vol] 28 mmol/L Normal 21-31 [facility] Comment on above: Performed By: #### L [id number] ####[facility])[address] [place] [address] Glucose [Mass/Vol] 91 mg/dL Normal 70-100 [facility] Comment on above: Performed By: #### L [id number] ####[facility])[address] [place] [address] Potassium [Moles/Vol] 4.1 mmol/L Normal 3.5-5.1 [facility] Comment on above: Performed By: #### L [id number] ####[facility] ([facility])[address] [place] [address] Sodium [Moles/Vol] 132 mmol/L Low 136-145 [facility] Comment on above: Performed By: #### L [id number] ####[facility] ([facility])[address] [place] [address] Urea nitrogen [Mass/Vol] 15 mg/dL Normal 7-25 [facility] Comment on above: Performed By: #### L [id number] ####[facility] [facility] ([facility])[address] [place] [address] UREA NITROGEN/CREATININE (MASS RATIO) IN SER/PLAS 15.8 Normal [facility] Comment on above: Performed By: #### L [id number] ####[facility] ([facility])[address] [place] [address] CBCon 03-26-2025 Erythrocyte distribution width (RBC) [Ratio] 15.2 % High 11.5-15.0 [facility] Comment on above: Performed By: #### L [id number] ####[facility] ([facility])[address] [place] [address] ERYTHROCYTE MEAN CORPUSCULAR HEMOGLOBIN CONCENTRATION (G/DL) BY AUTOMATED 34.6 g/dL Normal 32.0-35.0 [facility] Comment on above: Performed By: #### L [id number] ####[facility] ([facility])[address] [place] [address] Hematocrit (Bld) [Volume fraction] 40.2 % Normal 39.0-50.0 [facility] Comment on above: Performed By: #### L [id number] ####[facility] ([facility])[address] [place] [address] Hemoglobin (Bld) [Mass/Vol] 13.9 g/dL Normal 13.0-17.0 [facility] Comment on above: Performed By: #### L [id number] ####[facility] ([facility])[address] [place] [address] MCH (RBC) [Entitic mass] 32.0 pg Normal 27.0-33.0 [facility] Comment on above: Performed By: #### L [id number] ####[facility] ([facility])[address] [place] [address] MCV (RBC) [Entitic vol] 92.6 fL Normal 82.0-98.0 [facility] Comment on above: Performed By: #### L [id number] ####[facility] ([facility])[address] [place] [address] PLATELETS (10*3/UL) IN BLOOD AUTOMATED COUNT 211 10*3/uL Normal 150-400 [facility] Comment on above: Performed By: #### L [id number] ####[facility] ([facility])[address] [place] [address] RBC (Bld) [#/Vol] 4.34 10*6/uL Normal 4.20-5.70 [facility] Comment on above: Performed By: #### L [id number] ####[facility] ([facility])[address] [place] [address] WBC (Bld) [#/Vol] 7.48 10*3/uL Normal 4.00-10.60 [facility] Comment on above: Performed By: #### L [id number] ####[facility] ([facility])[address] [place] [address] CREATININE, SERUMon 03-26-20 25 Creatinine [Mass/Vol] 0.95 mg/dL Normal 0.70-1.30 [facility] Comment on above: Performed By: #### L [id number] ####[facility] ([facility])[address] [place] [address] Performed By: #### L [id number] ####[facility] ([facility])[address] [place] [address] GLOMERULAR FILTRATION RATE ML/MIN/1.73 SQ M.PREDICTED 86.6 mL/min/1.73m*2 Normal >60.0 [facility] [place] Comment on above: Result Comment: The [facility]???s estimated glomerular filtration rate (eGFR) will [...] group of individuals. Performed By: #### L [id number] ####[facility] ([facility])[address] [place] [address] Performed By: #### L [id number] ####[facility] ([facility])[address] [place] [address] CTA CHEST W IV CONTRASTon CTA CHEST W IV CONTRAST Invalid Interpretation Code [facility] Comment on above: Order Comment: 45-da y imaging - Post-LAAO device - venous & gaited with 3D reconstrution to assess left atrial appendage Labon 03-26-2025 Lab Normal [facility] Orders Onlyon 03-23-2025 Orders Only Normal [facility] Follow-Upon 02-26-2025 Follow-Up Normal [facility] Orders Onlyon 02-20-2025 Orders Only Normal [facility] 36on 02-08-2025 36 Normal [facility] Telephoneon 02-08-2025 Telephone Normal [facility] 30on 02-07-2025 30 Normal [facility] BASIC METABOLIC PANELon 01-17 Anion gap [Moles/Vol] 12 mmol/L Normal 7-20 [facility] Comment on above: Performed By: #### L [id number] ####[facility] ([facility])[address] [place] [address] Calcium [Mass/Vol] 7.5 mg/dL Low 8.6-10.3 [facility] Comment on above: Performed By: #### L [id number] ####[facility] ([facility])[address] [place] [address] Chloride [Moles/Vol] 102 mmol/L Normal 98-107 [facility] Comment on above: Performed By: #### L [id number] ####[facility] ([facility])[address] [place] [address] CO2 [Moles/Vol] 25 mmol/L Normal 21-31 [facility] Comment on above: Performed By: #### L [id number] ####[facility] ([facility])[address] [place] [address] Creatinine [Mass/Vol] 0.81 mg/dL Normal 0.70-1.30 [facility] Comment on above: Performed By: #### L [id number] ####[facility] ([facility])[address] [place] [address] GLOMERULAR FILTRATION RATE ML/MIN/1.73 SQ M.PREDICTED 95.4 mL/min/1.73m*2 Normal >60.0 [facility] [place] Comment on above: Result Comment: The [facility]???s estimated glomerular filtration rate (eGFR) will [...] of individuals. Performed By: #### L [id number] ####[facility] ([facility])[address] [place] [address] Glucose [Mass/Vol] 96 mg/dL Normal 70-100 [facility] Comment on above: Performed By: #### L [id number] ####[facility] ([facility])[address] [place] [address] Potassium [Moles/Vol] 3.0 mmol/L Low 3.5-5.1 [facility] Comment on above: Performed By: #### L [id number] ####[facility] ([facility])[address] [place] [address] Sodium [Moles/Vol] 136 mmol/L Normal 136-145 [facility] Comment on above: Performed By: #### L [id number] ####[facility] ([facility])[address] [address] Urea nitrogen [Mass/Vol] 12 mg/dL Normal 7-25 [facility] Comment on above: Performed By: #### L [id number] ####[facility] ([facility])[address] [address] UREA NITROGEN/CREATININE (MASS RATIO) IN SER/PLAS 14.8 Normal [facility] Comment on above: Performed By: #### L [id number] ####[facility] ([facility])[address] [address] CBCon 02-07-2025 Erythrocyte distribution width (RBC) [Ratio] 14.3 % Normal 11.5-15.0 [facility] Comment on above: Performed By: #### L [id number] ####[facility] ([facility])[address] [address] ERYTHROCYTE MEAN CORPUSCULAR HEMOGLOBIN CONCENTRATION (G/DL) BY AUTOMATED 34.2 g/dL Normal 32.0-35.0 [facility] Comment on above: Performed By: #### L [id number] ####[facility] ([facility])[address], [place] [address] Hematocrit (Bld) [Volume fraction] 33.9 % Low 39.0-50.0 [facility] Comment on above: Performed By: #### L [id number] ####[facility] ([facility])[address] [address] Hemoglobin (Bld) [Mass/Vol] 11.6 g/dL Low 13.0-17.0 [facility] Comment on above: Performed By: #### L [id number] ####[facility] ([facility])[address] [place] [address] MCH (RBC) [Entitic mass] 32.0 pg Normal 27.0-33.0 [facility] Comment on above: Performed By: #### L [id number] ####[facility] ([facility])[address] [place] [address] MCV (RBC) [Entitic vol] 93.4 fL Normal 82.0-98.0 [facility] Comment on above: Performed By: #### L [id number] ####[facility] ([facility])[address] [place] [address] PLATELETS (10*3/UL) IN BLOOD AUTOMATED COUNT 154 10*3/uL Normal 150-400 [facility] Comment on above: Performed By: #### L [id number] ####[facility] ([facility])[address] [place] [address] RBC (Bld) [#/Vol] 3.63 10*6/uL Low 4.20-5.70 [facility] Comment on above: Performed By: #### L [id number] ####[facility] ([facility])[address] [place] [address] WBC (Bld) [#/Vol] 6.13 10*3/uL Normal 4.00-10.60 [facility] Comment on above: Performed By: #### L [id number] ####[facility] ([facility])[address] [place] [address] DSon 02-07-2025 DS Normal [facility] Orders Onlyon 02-07-2025 Orders Only Normal [facility] POTASSIUMon 02-07-2025 Potassium [Moles/Vol] 3.4 mmol/L Low 3.5-5.1 [facility] Comment on above: Performed By: #### L [id number] ####[facility] ([facility])[address] [place] [address] 30on 02-06-2025 30 Normal [facility] 30 Normal [facility] ANESon 02-06-2025 ANES Normal [facility] HPon 02-06-2025 HP Normal [facility] NURSNOTEon 02-06-2025 NURSNOTE [facility] NURSNOTE CHG wipes and betadi ne nasal swabs completed. Normal [facility] TYPE AND SCREENon 02-06-2025 AB SCREEN Negative [facility] Comment on above: Performed By: #### L [id number] ####[facility], ABO group Nom (Bld) A Normal [facility] Comment on above: Performed By: #### L [id number] ####[facility], RH TYPE IN BLOOD Positive Normal [facility] Comment on above: Performed By: #### L [id number] ####[facility], Orders Onlyon 02-04-2025 Orders Only Normal [facility] ALL BASIC METABOLIC PANELon 01-30-2025 Anion gap [Moles/Vol] 16.6 mmol/L [facility] Calcium [Mass/Vol] 9.2 mg/dL 8.5 - 10. 1 mg/dL [facility] Chloride [Moles/Vol] 101 mmol/L 98 - 10 7 mmol/L [facility] CO2 [Moles/Vol] 24.7 mmol/L 21.0 - 32.0 mmol/L [facility] Creatinine [Mass/Vol] 0.9 mg/dL 0.70 - 1.30 mg/dL [facility] GFR/1.73 sq M.predicted CKD-EPI (S/P/Bld) [Vol rate/Area] >60 >=60 mL/min/1.73m 2 [facility] Glucose [Mass/Vol] 90 mg/dL 74 - 106 mg/dL [facility] Interpretation and review of laboratory results Abnormal [facility] Potassium [Moles/Vol] 3.3 mmol/L Low 3.5 - 5.1 mmol/L [facility] Sodium [Moles/Vol] 139 mmol/L 136 - 145 mmol/L [facility] EGFR-NON AF ALBANIAN >60 >=60 mL/min/1.73m 2 [facility] Urea nitrogen [Mass/Vol] 13 mg/dL 7.0 - 18.0 mg/dL [facility] Urea nitrogen/Creatinine [Mass ratio] 14.4 mg/mg [facility] CLINISYNC [facility] Prep for Procedureon 025 Prep for Procedure Normal [facility] Orders Onlyon 01-03-2025 Orders Only Normal [facility] Orders Onlyon 12-20-2024 Orders Only Normal [facility] CA ECHO DOPPLER COMPLETEon 0 12-05-2024 [place] [address] Cardiology Report Signed Patient: KRISTY DOHERTY MR#: [id number] : 1955 Acct:[id number] Age/Sex: 69 / M ADM Date: 12/05/24 Loc: CARD Attending Dr: BORIS KIM Ordering Physician: BORIS KIM Date of Service: 12/05/24 Procedure(s): CA echo doppler complete Accession Number(s): [id number] cc: BORIS KIM; Rudy King M.D. Patient Name: KRISTY DOHERTY MR#: [id number] : 1955 Exam Date: 12/05/2024 Ordering Doctor: DR BORIS KIM M.D. ECHOCARDIOGRAM REPORT PROCEDURE: CA ECHO DOPPLER [...] 41.53 ml, 41.53 ml Dictated by: Boris Kim, (more content not included)... [facility] Radiology, Radiologmike man MD - 12/05/2024 [place] [address] Cardiology Report Signed Patient: KRISTY DOHERTY MR#: [id number] : 1955 Acct:[id number] Age/Sex: 69 / M ADM Date: 12/05/24 Loc: CARD Attending Dr: BORIS KIM Ordering Physician: BORIS KIM Date of Service: 12/05/24 Procedure(s): CA echo doppler complete Accession Number(s): [id number] cc: BORIS KIM; Rudy King M.D. Patient Name: KRISTY DOHERTY MR#: [id number] : 1955 Exam Date: 12/05/2024 Ordering Doctor: DR BORIS KIM M.D. ECHOCARDIOGRAM REPORT PROCEDURE: CA ECHO DOPPLER [...] 41.53 ml, 41.53 ml Dictated by: Boris Kim M.D. on 12/05/2024 at 15:40 Approved by: Boris Kim M.D. on 12/05/2024 at 15:44 Dictated By: BORIS KIM Signed By: 12/05/24 1545 DD/ 154 TD/TT: Export Agent: [facility] Radiology Study observation (narrative) [facility] CA ECHO DOPPLER COMPLETEOrde red By: Radiologist Radiology on 12-05-2024 [facility] [employer] Work Phone: ANESon 12-01-2024 ANES Normal [facility] BASIC METABOLIC PANELon 05- Anion gap [Moles/Vol] 19 mmol/L Normal 7-20 [facility] Comment on above: Performed By: #### L [id number] ####[facility] ([facility])[address] [place] [address] Calcium [Mass/Vol] 8.8 mg/dL Normal 8.6-10.3 [facility] Comment on above: Performed By: #### L [id number] ####[facility] ([facility])[address] [place] [address] Chloride [Moles/Vol] 101 mmol/L Normal 98-107 [facility] Comment on above: Performed By: #### L [id number] ####[facility] ([facility])[address] [place] [address] CO2 [Moles/Vol] 24 mmol/L Normal 21-31 [facility] Comment on above: Performed By: #### L [id number] ####[facility] ([facility])[address] [place] [address] Creatinine [Mass/Vol] 0.93 mg/dL Normal 0.70-1.30 [facility] Comment on above: Performed By: #### L [id number] ####[facility] ([facility])[address] [place] [address] GLOMERULAR FILTRATION RATE ML/MIN/1.73 SQ M.PREDICTED 88.9 mL/min/1.73m*2 Normal >60.0 [facility] Comment on above: Result Comment: The [facility]???s estimated glomerular filtration rate (eGFR) will [...] of individuals. Performed By: #### L [id number] ####[facility] ([facility])[address] [place] [address] Glucose [Mass/Vol] 108 mg/dL High 70-100 [facility] Comment on above: Performed By: #### L [id number] ####[facility] ([facility])[address] [place] [address] Potassium [Moles/Vol] 4.5 mmol/L Normal 3.5-5.1 [facility] Comment on above: Performed By: #### L [id number] ####[facility] ([facility])[address] [place] [address] Sodium [Moles/Vol] 139 mmol/L Normal 136-145 [facility] Comment on above: Performed By: #### L [id number] ####[facility] ([facility])[address] [place] [address] Urea nitrogen [Mass/Vol] 16 mg/dL Normal 7-25 [facility] Comment on above: Performed By: #### L [id number] ####[facility] ([facility])[address] [address] UREA NITROGEN/CREATININE (MASS RATIO) IN SER/PLAS 17.2 Normal [facility] Comment on above: Performed By: #### L [id number] ####[facility] ([facility])[address] [address] CBCon 12-01-2024 Erythrocyte distribution width (RBC) [Ratio] 13.9 % Normal 11.5-15.0 [facility] Comment on above: Performed By: #### L [id number] ####[facility] ([facility])[address] [address] ERYTHROCYTE MEAN CORPUSCULAR HEMOGLOBIN CONCENTRATION (G/DL) BY AUTOMATED 34.2 g/dL Normal 32.0-35.0 [facility] Comment on above: Performed By: #### L [id number] ####[facility] ([facility])[address] [address] Hematocrit (Bld) [Volume fraction] 40.9 % Normal 39.0-50.0 [facility] Comment on above: Performed By: #### L [id number] ####[facility] ([facility])[address] [address] Hemoglobin (Bld) [Mass/Vol] 14.0 g/dL Normal 13.0-17.0 [facility] Comment on above: Performed By: #### L [id number] ####[facility] ([facility])[address] [place] [address] MCH (RBC) [Entitic mass] 31.5 pg Normal 27.0-33.0 [facility] Comment on above: Performed By: #### L [id number] ####[facility] ([facility])[address] [place] [address] MCV (RBC) [Entitic vol] 92.1 fL Normal 82.0-98.0 [facility] Comment on above: Performed By: #### L [id number] ####[facility] ([facility])[address] [place] [address] PLATELETS (10*3/UL) IN BLOOD AUTOMATED COUNT 167 10*3/uL Normal 150-400 [facility] Comment on above: Performed By: #### L [id number] ####[facility] ([facility])[address] [place] [address] RBC (Bld) [#/Vol] 4.44 10*6/uL Normal 4.20-5.70 [facility] Comment on above: Performed By: #### L [id number] ####[facility] ([facility])[address] [place] [address] WBC (Bld) [#/Vol] 6.95 10*3/uL Normal 4.00-10.60 [facility] Comment on above: Performed By: #### L [id number] ####[facility] ([facility])[address] [place] [address] HPon 12-01-2024 HP H&P reviewed. The patient was examined and there are no changes to the H&P. [facility] NURSNOTEon 12-01-2024 NURSNOTE Bedside swallow stud y completed and passed. Normal [facility] NURSNOTE Normal [facility] Telephoneon 11-23-2024 Telephone [facility] Orders Onlyon 11-19-2024 Orders Only [facility] HPon 11-13-2024 HP [facility] 36on 08-17-2024 36 Regarding lab result s from 08/16/2024: MD Zaida Currie MA His blood test was okay. Continue same and follow-up as planned. Patient made aware. Normal [facility] ALL BASIC METABOLIC PANELon 08-16-2024 Anion gap [Moles/Vol] 13.5 mmol/L [facility] Calcium [Mass/Vol] 8.8 mg/dL 8.5 - 10. 1 mg/dL [facility] Chloride [Moles/Vol] 101 mmol/L 98 - 10 7 mmol/L [facility] CO2 [Moles/Vol] 29.5 mmol/L 21.0 - 32.0 mmol/L [facility] Creatinine [Mass/Vol] 1.3 mg/dL 0.70 - 1.30 mg/dL [facility] GFR/1.73 sq M.predicted CKD-EPI (S/P/Bld) [Vol rate/Area] >60 >=60 mL/min/1.73m 2 [facility] Glucose [Mass/Vol] 129 mg/dL High 74 - 106 mg/dL [facility] Interpretation and review of laboratory results Abnormal [facility] Potassium [Moles/Vol] 4 mmol/L 3.5 - 5.1 mmol/L [facility] Sodium [Moles/Vol] 140 mmol/L 136 - 145 mmol/L [facility] TBH EGFR-NON AF ALBANIAN 55 Low >=60 mL/min/1.73m 2 [facility] Urea nitrogen [Mass/Vol] 18 mg/dL 7.0 - 18.0 mg/dL [facility] Urea nitrogen/Creatinine [Mass ratio] 13.8 mg/mg [facility] COLLIN Antinuclear Antibodieson 12-03-2022 Antinuclear Abs, IFA Positive Critically abnormal . [facility] Comment on above: Result Comment: Nega tive <1:80 Borderline 1:80 Positive >1:80 Performed By: #### A NA #### [facility] , #### PTH, CRP, CBC, ESR, URIC, CMP #### [facility] [address] [place] [address] [place] Homogeneous Pattern 1:80 Normal . [facility] Comment on above: Result Comment: ICAP nomenclature: AC-1 Performed By: #### A NA #### [facility] , #### PTH, CRP, CBC, ESR, URIC, CMP #### [facility] [address] Note 1 Normal . [facility] Comment on above: Result Comment: For [...] titers Nucleosomes, Histones Drug-induced SLE Speckled Sm, PRIVACY COMPLIANCE MANAGER, SCL-70, SLE,MCTD,PSS (diffuse form), SS-A/SS-B Sjogrens Nucleolar SCL-70, PM-1/SCL High titers Scleroderma, PM/DM Centromere Centromere PSS (limited form) w/Crest syndrome variable Nuclear Dot [id number] Primary Biliary Cirrhosis Nuclear GP210, Primary Biliary Cirrhosis Membrane flor A,B,C Performed at: - [facility] [id number] Cattle Tester: John Acosta PhD, Phone: [phone] PERFORMED BY: [place] [address] PATHOLOGIST VISITOR SERVICE ASSISTANT ROMULO SERRA M.D. Performed By: #### A NA #### [facility] , #### PTH, CRP, CBC, ESR, URIC, CMP #### [facility] [address] [place] [address] C-Reactive Proteinon 023 C-Reactive Protein 0.6 mg/dL High 0.0-0.5 [facility] Comment on above: Result Comment: PERF ORMED BY: [place] [address] PATHOLOGIST VISITOR SERVICE ASSISTANT ROMULO SERRA M.D. Performed By: #### A NA #### [facility] , #### PTH, CRP, CBC, ESR, URIC, CMP #### [facility] [address] [place] [address] Complete Blood Count Auto Di ffon 12-03-2022 Basophils (Bld) [#/Vol] 0.1 10*3/uL Normal 0.0-0.2 [facility] Comment on above: Performed By: #### A NA #### [facility] , #### PTH, CRP, CBC, ESR, URIC, CMP #### [address] Basophils/100 WBC (Bld) 1.1 % Normal . [facility] Comment on above: Performed By: #### A NA #### [facility] , #### PTH, CRP, CBC, ESR, URIC, CMP #### [address] Eosinophils (Bld) [#/Vol] 0.3 10*3/uL Normal 0.0-0.45 [facility] Comment on above: Performed By: #### A NA #### [facility] , #### PTH, CRP, CBC, ESR, URIC, CMP #### [address] Eosinophils/100 WBC (Bld) 4.2 % Normal . [facility] Comment on above: Performed By: #### A NA #### [facility] , #### PTH, CRP, CBC, ESR, URIC, CMP #### [address] Erythrocyte distribution width (RBC) [Ratio] 16.3 % High 12.0-14.8 [facility] Comment on above: Performed By: #### A NA #### [facility] , #### PTH, CRP, CBC, ESR, URIC, CMP #### [address] Hematocrit (Bld) [Volume fraction] 40.2 % Normal 38.8-50.0 [facility] Comment on above: Performed By: #### A NA #### [facility] , #### PTH, CRP, CBC, ESR, URIC, CMP #### [address] Hemoglobin (Bld) [Mass/Vol] 13.3 g/dL Normal 13.0-17.0 [facility] Comment on above: Performed By: #### A NA #### [facility] , #### PTH, CRP, CBC, ESR, URIC, CMP #### [address] Lymphocytes (Bld) [#/Vol] 2.5 10*3/uL Normal 1.00-4.8 [facility] Comment on above: Performed By: #### A NA #### [facility] , #### PTH, CRP, CBC, ESR, URIC, CMP #### [address] Lymphocytes/100 WBC (Bld) 31.3 % Normal . [facility] Comment on above: Performed By: #### A NA #### [facility] , #### PTH, CRP, CBC, ESR, URIC, CMP #### [address] MCH (RBC) [Entitic mass] 29.4 pg Normal 27.5-35.2 [facility] Comment on above: Performed By: #### A NA #### [facility] , #### PTH, CRP, CBC, ESR, URIC, CMP #### [address] MCV (RBC) [Entitic vol] 88.7 fL Normal 83.5-101 [facility] Comment on above: Performed By: #### A NA #### [facility] , #### PTH, CRP, CBC, ESR, URIC, CMP #### [address] Mean Corpuscular HGB Conc 33.1 g/dL Normal 32.5-35.6 [place] [facility] Comment on above: Performed By: #### A NA #### [facility] , #### PTH, CRP, CBC, ESR, URIC, CMP #### [place] [id number] [place] Monocytes (Bld) [#/Vol] 1.0 10*3/uL High 0.0-0.8 [facility] Comment on above: Performed By: #### A NA #### [facility] , #### PTH, CRP, CBC, ESR, URIC, CMP #### [address] Monocytes/100 WBC (Bld) 12.9 % Normal . [facility] Comment on above: Performed By: #### A NA #### [facility] , #### PTH, CRP, CBC, ESR, URIC, CMP #### [address] Neutrophils (Bld) [#/Vol] 4.1 10*3/uL Normal 1.8-7.7 [facility] Comment on above: Performed By: #### A NA #### [facility] , #### PTH, CRP, CBC, ESR, URIC, CMP #### [address] Neutrophils/100 WBC (Bld) 50.5 % Normal . [facility] Comment on above: Performed By: #### A NA #### [facility] , #### PTH, CRP, CBC, ESR, URIC, CMP #### [address] NRBC% 0.0 /100{WBC} Normal 0-0.5 [facility] Comment on above: Performed By: #### A NA #### [facility] , #### PTH, CRP, CBC, ESR, URIC, CMP #### [address] Platelet mean volume (Bld) [Entitic vol] 8.7 fL Normal 6.6-10.1 [facility] Comment on above: Performed By: #### A NA #### [facility] , #### PTH, CRP, CBC, ESR, URIC, CMP #### [address] Platelets (Bld) [#/Vol] 285 10*3/uL Normal 150-450 [facility] Comment on above: Performed By: #### A NA #### [facility] , #### PTH, CRP, CBC, ESR, URIC, CMP #### [address] RBC (Bld) [#/Vol] 4.53 10*6/uL Normal 3.90-5.60 [facility] Comment on above: Performed By: #### A NA #### [facility] , #### PTH, CRP, CBC, ESR, URIC, CMP #### [address] WBC (Bld) [#/Vol] 8.0 10*3/uL Normal 4.1-10.5 [facility] Comment on above: Performed By: #### A NA #### [facility] , #### PTH, CRP, CBC, ESR, URIC, CMP #### [address] Comprehensive Metabolic Pane conor 12-03-2022 Albumin [Mass/Vol] 4.2 g/dL Normal 3.5-5.7 [facility] Comment on above: Performed By: #### A NA #### [facility] , #### PTH, CRP, CBC, ESR, URIC, CMP #### [address] Albumin/Globulin [Mass ratio] 1.3 {ratio} Normal [facility] Comment on above: Performed By: #### A NA #### [facility] , #### PTH, CRP, CBC, ESR, URIC, CMP #### [address] ALP [Catalytic activity/Vol] 69 U/L Normal 34-104 [facility] Comment on above: Performed By: #### A NA #### [facility] , #### PTH, CRP, CBC, ESR, URIC, CMP #### [facility] [address] ALT [Catalytic activity/Vol] 15 U/L Normal 7-52 [facility] Comment on above: Performed By: #### A NA #### [facility] , #### PTH, CRP, CBC, ESR, URIC, CMP #### [facility] [address] [place] [address] Anion gap [Moles/Vol] 9.9 mmol/L Normal 6.0-15.0 [facility] Comment on above: Performed By: #### A NA #### [facility] , #### PTH, CRP, CBC, ESR, URIC, CMP #### [address] AST [Catalytic activity/Vol] 24 U/L Normal 13-39 [facility] Comment on above: Performed By: #### A NA #### [facility] , #### PTH, CRP, CBC, ESR, URIC, CMP #### [facility] [address] [place] [address] Bilirubin [Mass/Vol] 0.4 mg/dL Normal 0.3-1.0 [facility] Comment on above: Performed By: #### A NA #### [facility] , #### PTH, CRP, CBC, ESR, URIC, CMP #### [facility] [address] [place] [address] [place] Calcium [Mass/Vol] 9.6 mg/dL Normal 8.6-10.3 [facility] Comment on above: Performed By: #### A NA #### [facility] , #### PTH, CRP, CBC, ESR, URIC, CMP #### [address] Chloride [Moles/Vol] 103 mmol/L Normal 98-107 [facility] Comment on above: Performed By: #### A NA #### [facility] , #### PTH, CRP, CBC, ESR, URIC, CMP #### [address] CO2 [Moles/Vol] 29.5 mmol/L Normal 21.0-31.0 [facility] Comment on above: Performed By: #### A NA #### [facility] , #### PTH, CRP, CBC, ESR, URIC, CMP #### [address] Creatinine [Mass/Vol] 1.06 mg/dL Normal 0.70-1.30 [facility] Comment on above: Performed By: #### A NA #### [facility] , #### PTH, CRP, CBC, ESR, URIC, CMP #### [address] GFR/1.73 sq M.predicted MDRD (S/P/Bld) [Vol rate/Area] mL/min/{1.73_m2} [facility] Comment on above: Performed By: #### A NA #### [facility] , #### PTH, CRP, CBC, ESR, URIC, CMP #### [address] Globulin (S) [Mass/Vol] 3.2 g/dL [facility] Comment on above: Performed By: #### A NA #### [facility] , #### PTH, CRP, CBC, ESR, URIC, CMP #### [address] Glucose [Mass/Vol] 81 mg/dL Normal 70-100 [facility] Comment on above: Result Comment: [place] om Glucose Reference Range is dependent on time and content of last meal. Glucose of more than 200 mg/dL in a nonstressed, ambulatory subject supports the diagnosis of Diabetes Mellitus. ADA recommended reference range Performed By: #### A NA #### [facility] , #### PTH, CRP, CBC, ESR, URIC, CMP #### [address] Potassium [Moles/Vol] 4.4 mmol/L Normal 3.5-5.1 [facility] Comment on above: Performed By: #### A NA #### [facility] , #### PTH, CRP, CBC, ESR, URIC, CMP #### [address] Protein [Mass/Vol] 7.4 g/dL Normal 6.4-8.9 [facility] Comment on above: Performed By: #### A NA #### [facility] , #### PTH, CRP, CBC, ESR, URIC, CMP #### [address] Sodium [Moles/Vol] 138 mmol/L Normal 136-145 [facility] Comment on above: Performed By: #### A NA #### [facility] , #### PTH, CRP, CBC, ESR, URIC, CMP #### [address] Urea nitrogen [Mass/Vol] 19 mg/dL Normal 7-25 [facility] Comment on above: Performed By: #### A NA #### [facility] , #### PTH, CRP, CBC, ESR, URIC, CMP #### [address] Erythrocyte Sedimentation Ra nishant 12-03-2022 ESR (Bld) [Velocity] 43 mm/h High 0-19 [facility] Comment on above: Result Comment: PERF ORMED BY: [place] [address] PATHOLOGIST VISITOR SERVICE ASSISTANT ROMULO SERRA M.D. Performed By: #### A NA #### [facility] , #### PTH, CRP, CBC, ESR, URIC, CMP #### [address] Parathyroid Hormone Intacton 12-03-2022 Parathyroid Hormone Intact 34.1 pg/mL Normal 12-88 [facility] Comment on above: Result Comment: PERF ORMED BY: [place] [address] PATHOLOGIST VISITOR SERVICE ASSISTANT ROMULO SERRA M.D. Performed By: #### A NA #### [facility] , #### PTH, CRP, CBC, ESR, URIC, CMP #### [address] Uric Acidon 12-03-2022 Urate [Mass/Vol] 3.5 mg/dL Normal 2.4-7.6 [facility] Comment on above: Performed By: #### A NA #### [facility] , #### PTH, CRP, CBC, ESR, URIC, CMP #### [place] [id number] [facility] XR foot LT 2Von 12-03-2022 XR foot LT 2V [facility] [place] [address] XRay Report Signed Patient: Kristy Doherty MR#: [id number] 81 : 1955 Acct:[id number] Age/Sex: 67 / M ADM Date: 12/03/22 Loc: ICXD Room: Type: [facility] Attending Dr: Kristy Beatty MD [...] PM Dictation Location: RADIO-PC-07 Transcribed By: SUSAN 12/03/22 165 Dictated By: Bonnie Grewal II, MD 12/03/22 165 Signed By: 12/03/221655 Normal [facility] XR hand BI 2Von 12-03-2022 XR hand BI 2V [facility] [place] [address] XRay Report Signed Patient: Kristy Doherty MR#: [id number] 81 : 1955 Acct:[id number] Age/Sex: 67 / M ADM Date: 12/03/22 Loc: ICXD Room: Type: [facility] Attending Dr: Kristy Beatty MD [...] PM Dictation Location: RADIO-PC-07 Transcribed By: SUSAN 12/03/22 1729 Dictated By: Bonnie Grewal II, MD 12/03/221650 Signed By: 12/03/22 1729 [facility] XR knee LT 2Von 12-03-2022 XR knee LT 2V [facility] [place] [address] [place] [address] XRay Report Signed Patient: Kristy Doherty MR#: [id number] 81 : 1955 Acct:[id number] Age/Sex: 67 / M ADM Date: 12/03/22 Loc: ICXD Room: Type: [facility] CLI Attending Dr: Kristy Beatty MD Copies [...] Bonnie Grewal M.D.12/03/2022 4:54 PM Dictation Location: [place] [address] Transcribed By: [facility] 12/03/221653 Dictated By: Bonnie Grewal II, MD 12/03/221652 Signed By: 12/03/221653 [facility] COLLIN by IFAon 11-04-2022 Antinuclear Antibodies, IFA Negative Normal [facility] [place] Comment on above: Result Comment: Nega tive <1:80 Borderline 1:80 Positive >1:80 ICAP nomenclature: AC-0 For more information about Hep-2 cell patterns use ANApatterns.org, the official website for the International Consensus on Antinuclear Antibody (COLLIN) Patterns (ICAP). Performed By: #### C CARLOS ENRIQUE, BMP #### [facility] [address] [address] [address] Skylar Chadwick ANTISTREPTOLYSIN O AB (ASO)o n 11-03-2022 Antistreptolysin O Ab 326.2 IU/mL Critically high 0.0-200.0 [facility] Comment on above: Performed By: #### A SOAB #### [facility] [address] [place] [address] Dr. Skylar Chadwick RHEUMATOID FACTORon 11-04-19 RA Latex Turbid. 14.3 IU/mL Critically high <14.0 [facility] Comment on above: Performed By: #### C MADM, BMP #### [facility] [address] [place] [address] Dr. Skylar Chadwick CBC AUTO DIFFon 11-02-2022 BASO # 0.1 103/ul Normal 0.0-0.1 [facility] [place] Comment on above: Performed By: #### C MADM, BMP #### [facility] [address] [place] [address] Dr. Skylar Chadwick Basophils/100 WBC (Bld) 0.7 % Normal 0.2-2.0 [facility] Comment on above: Performed By: #### C MADM, BMP #### [facility] [address] [place] [address] Dr. Skylar Chadwick EO # 0.2 103/ul Normal 0.0-0.7 [facility] Comment on above: Performed By: #### C MADM, BMP #### [facility] [address] [place] [address] Dr. Skylar Chadwick Eosinophils/100 WBC (Bld) 2.8 % Normal 0.9-7.0 [facility] Comment on above: Performed By: #### C MADM, BMP #### [facility] [address] [place] [address] Dr. Skylar Chadwick Erythrocyte distribution width (RBC) [Ratio] 15.1 % Critically high 11.0-15.0 [facility] Comment on above: Performed By: #### C MADM, BMP #### [facility] [address] [place] [address] Dr. Skylar Chadwick Hematocrit (Bld) [Volume fraction] 37.2 % Critically low 42.0-54.0 [facility] Comment on above: Performed By: #### C MADM, BMP #### [facility] [address] [place] [address] Dr. Skylar Chadwick Hemoglobin (Bld) [Mass/Vol] 12.2 g/dL Critically low 14.0-18.0 [facility] [place] Comment on above: Performed By: #### C MADM, BMP #### [facility] [address] [place] [address] Dr. Skylar Chadwick IG # 0.02 10e3/ul Normal 0.00-0.03 [facility] [place] Comment on above: Performed By: #### C MADM, BMP #### [facility] [address] [place] [address] Dr. Skylar Chadwick IG % 0.3 % Normal 0.0-0.5 [facility] [place] Comment on above: Performed By: #### C CARLOS ENRIQUEM, BMP #### [facility] [address] [place] [address] Dr. Skylar Chadwick LYMPH # 2.2 103/ul Normal 1.2-3.8 [facility] [place] Comment on above: Performed By: #### C MADM, BMP #### [facility] [address] [place] [address] Dr. Skylar Chadwick Lymphocytes/100 WBC (Bld) 30.3 % Normal 20.5-60.0 [facility] [place] Comment on above: Performed By: #### C CARLOS ENRIQUEM, BMP #### [facility] [address] [place] [address] Dr. Skylar Chadwick MANUAL DIFF REQ NO Normal [facility] Comment on above: Performed By: #### C MADM, BMP #### [facility] [address] [place] [address] Dr. Skylar Chadwick MCH (RBC) [Entitic mass] 29.3 pg Normal 25.9-34.0 [facility] [place] Comment on above: Performed By: #### C MADM, BMP #### [facility] [address] [place] [address] Dr. Skylar Chadwick MCHC (RBC) [Mass/Vol] 32.8 g/dL Normal 29.9-35.2 [facility] [place] Comment on above: Performed By: #### C AILYN, BMP #### [facility] [address] [place] [address] Dr. Skylar Chadwick MCV (RBC) [Entitic vol] 89.2 fL Normal 80.0-94.0 [facility] Comment on above: Performed By: #### C AILYN, BMP #### [facility] [address] [place] [address] Dr. Skylar Chadwick MONO # 0.8 103/ul Normal 0.3-0.8 [facility] Comment on above: Performed By: #### C AILYN, BMP #### [facility] [address] [place] [address] Dr. Skylar Chadwick Monocytes/100 WBC (Bld) 10.9 % Normal 1.7-12.0 [facility] Comment on above: Performed By: #### C AILYN, BMP #### [facility] [address] [place] [address] Dr. Skylar Chadwick NEUT # 4.0 103/ul Normal 1.4-6.5 [facility] Comment on above: Performed By: #### C AILYN, BMP #### [facility] [address] [place] [address] Dr. Skylar Chadwick Neutrophils/100 WBC (Bld) 55.0 % Normal 43.0-75.0 [facility] Comment on above: Performed By: #### C AILYN, BMP #### [facility] [address] [place] [address] Dr. Skylar Chadwick Platelet mean volume (Bld) [Entitic vol] 10.3 fL Normal 9.5-13.5 [facility] Comment on above: Performed By: #### C AILYN, BMP #### [facility] [address] [place] [address] Dr. Skylar Chadwick PLT 289 103/ul Normal 150-450 [facility] Comment on above: Performed By: #### C AILYN, BMP #### [facility] [address] [place] [address] Dr. Skylar Chadwick RBC 4.17 106/ul Critically low 4.70-6.10 [facility] Comment on above: Performed By: #### C CARLOS ENRIQUEM, BMP #### [facility] [address] [address] [address] Skylar Chadwick WBC 7.2 103/ul Normal 4.0-11.0 [facility] [place] Comment on above: Performed By: #### C CARLOS ENRIQUEM, BMP #### [facility] [address] [address] [address] Skylar Chadwick CRPon 11-02-2022 CRP 1.3 mg/dL Critically high <=1.0 [facility] Comment on above: Performed By: #### U EFRAÍN, CMP, CRP #### [facility] [address] [place] [address] Dr. Skylar Chadwick PROF 14(COMP METB)on 023 Albumin [Mass/Vol] 3.4 g/dL Normal 3.4-5.0 [facility] Comment on above: Performed By: #### U EFRAÍN, CMP, CRP #### [facility] [address] [address] [address] Skylar Chadwick Albumin/Globulin [Mass ratio] 0.7 {ratio} Normal [facility] [place] Comment on above: Performed By: #### U EFRAÍN, CMP, CRP #### [facility] [address] [place] [address] Dr. Skylar Chadwick ALP [Catalytic activity/Vol] 72 U/L Normal 46-116 [facility] Comment on above: Performed By: #### U EFRAÍN, CMP, CRP #### [facility] [address] [address] [address] Skylar Chadwick ALT [Catalytic activity/Vol] 28 U/L Normal 16-63 [facility] [place] Comment on above: Performed By: #### U EFRAÍN, CMP, CRP #### [facility] [address] [address] [address] Skylar Chadwick Anion gap [Moles/Vol] 9.9 mmol/L Normal [facility] [place] Comment on above: Performed By: #### U EFRAÍN, CMP, CRP #### [facility] [address] [address] [address] Skylar Chadwick AST [Catalytic activity/Vol] 19 U/L Normal 15-37 [facility] [place] Comment on above: Performed By: #### U EFRAÍN, CMP, CRP #### [facility] [address] [address] [address] Skylar Chadwick Bilirubin [Mass/Vol] 0.3 mg/dL Normal 0.2-1.0 [facility] [place] Comment on above: Performed By: #### U EFRAÍN, CMP, CRP #### [facility] [address] [address] [address] Skylar Chadwick Calcium [Mass/Vol] 9.8 mg/dL Normal 8.5-10.1 [facility] Comment on above: Performed By: #### U EFRAÍN, CMP, CRP #### [facility] [address] [address] [address] Skylar Chadwick Chloride [Moles/Vol] 103 mmol/L Normal 98-107 [facility] [place] Comment on above: Performed By: #### U EFRAÍN, CMP, CRP #### [facility] [address] [address] [address] Skylar Chadwick CO2 [Moles/Vol] 31.0 mmol/L Normal 21.0-32.0 [facility] Comment on above: Performed By: #### U EFRAÍN, CMP, CRP #### [facility] [address] [address] [address] Skylar Chadwick Creatinine [Mass/Vol] 1.14 mg/dL Normal 0.70-1.30 [facility] [place] Comment on above: Performed By: #### U EFRAÍN, CMP, CRP #### [facility] [address] [address] [address] Skylar Chadwick EGFR-AF ALBANIAN >60 Normal >=60 [facility] Comment on above: Performed By: #### U EFRAÍN, CMP, CRP #### [facility] [address] [address] [address] Skylar Chadwick EGFR-NON AF ALBANIAN >60 Normal >=60 [facility] [place] Comment on above: Performed By: #### U EFRAÍN, CMP, CRP #### [facility] [address] [address] [address] Skylar Chadwick Globulin (S) [Mass/Vol] 4.8 g/dL Normal [facility] [place] Comment on above: Performed By: #### U EFRAÍN, CMP, CRP #### [facility] [address] [address] [address] Skylar Chadwick Glucose [Mass/Vol] 88 mg/dL Normal 74-106 [facility] Comment on above: Performed By: #### U EFRAÍN, CMP, CRP #### [facility] [address] [address] [address] Skylar Chadwick Potassium [Moles/Vol] 3.9 mmol/L Normal 3.5-5.1 [facility] [place] Comment on above: Performed By: #### U EFRAÍN, CMP, CRP #### [facility] [address] [address] [address] Skylar Chadwick Protein [Mass/Vol] 8.2 g/dL Normal 6.4-8.2 [facility] Comment on above: Performed By: #### U EFRAÍN, CMP, CRP #### [facility] [address] [place] [address] Dr. Skylar Chadwick Sodium [Moles/Vol] 140 mmol/L Normal 136-145 [facility] Comment on above: Performed By: #### U EFRAÍN, CMP, CRP #### [facility] [address] [address] [address] Skylar Chadwick Urea nitrogen [Mass/Vol] 18.0 mg/dL Normal 7.0-18.0 [facility] [place] Comment on above: Performed By: #### U EFRAÍN, CMP, CRP #### [facility] [address] [place] [address] Dr. Skylar Chadwick Urea nitrogen/Creatinine [Mass ratio] 15.8 mg/mg Normal [facility] [place] Comment on above: Performed By: #### U EFRAÍN, CMP, CRP #### [facility] [address] [place] [address] Dr. Skylar Chadwick SED RATE [facility] 2022 SED RATE 67 mm/hr Critically high <=20 [facility] Comment on above: Performed By: #### C MADM, BMP #### [facility] [id number] Skylar Chadwick URIC ACID SERUMon 11-02-2022 Urate [Mass/Vol] 3.3 mg/dL Critically low 3.5-7.2 [facility] [place] Comment on above: Performed By: #### U EFRAÍN, CMP, CRP #### [facility] [address] [place], [place] [address] Dr. Skylar Chadwick XR KNEE LT 3Von [...] 14:46 Normal [facility] [place] ECHOCARDIO M/2D COMPLETEon 0 10-28-2022 ECHOCARDIO M/2D COMPLETE Patient: KRISTY DOHERTY Exam Date: 10/28/2022 : 1955 Gender:M Ordering : DR BORIS KIM M.D. Admission #: [id number] Family : Order #: [id number] CLICK HERE TO VIEW EXAM ECHOCARDIOGRAM REPORT [...] 19:19 Normal [facility] [place] XR CHEST 2 Von 09-05-2022 XR CHEST [...] 15:49 Normal [facility] [place] ECHOCARDIO M/2D COMPLETEon 0 08-18-2022 ECHOCARDIO M/2D COMPLETE Patient: KRISTY DOHERTY Exam Date: 08/18/2022 : 1955 Gender:M Ordering : MILDRED LOGAN Admission #: [id number] Family : Order #: [id number] CLICK HERE TO VIEW EXAM ECHOCARDIOGRAM REPORT [...] Area (VTI): 2.22 cm2, 2.22 cm2 Deceleration [place]: 1.61 m/s2 Pressure Half-Time: 686.93 ms Peak [...] Kim M.D. on 08/19/2022 at 17:24 Normal [facility] [place] CARDIAC BONNIE 3-6on 2 CK [Catalytic activity/Vol] 231 U/L Normal 39-308 [facility] [place] Comment on above: Performed By: #### C MREP #### [facility] [address] [place] [address] Dr. Skylar GUERRIER.MB [Mass/Vol] 1.39 ng/mL Normal <=3.60 [facility] Comment on above: Performed By: #### C MREP #### [facility] [address] [place] [address] Dr. Skylar Chadwick HSTROP 41.4 pg/mL Normal 4.0-76.1 [facility] [place] Comment on above: Result Comment: CUT- OFF POINTS HAVE BEEN ESTABLISHED BASED ON THE FOURTH UNIVERSAL DEFINITIONS OF MYOCARDIAL INFARCTION. THE UPPER REFERENCE LIMIT (URL) OF TROPONIN, DEFINED THE 99TH PERCENTILE OF cTnI DISTRIBUTION IN A REFERENCE POPULATION, HAS BEEN CONFIRMED THE DECISION THRESHOLD FOR NM DIAGNOSIS. Performed By: #### C MREP #### [facility] [address] [place] [address] Dr. Skylar Chadwick CK [Catalytic activity/Vol] 214 U/L Normal 39-308 [facility] Comment on above: Performed By: #### C MREP #### [facility] [address] [place] [address] Dr. Skylar GUERRIER.MB [Mass/Vol] 1.37 ng/mL Normal <=3.60 [facility] Comment on above: Performed By: #### C MREP #### [facility] [address] [place] [address] Dr. Skylar Chadwick HSTROP 37.0 pg/mL Normal 4.0-76.1 [facility] [place] Comment on above: Result Comment: CUT- OFF POINTS HAVE BEEN ESTABLISHED BASED ON THE FOURTH UNIVERSAL DEFINITIONS OF MYOCARDIAL INFARCTION. THE UPPER REFERENCE LIMIT (URL) OF TROPONIN, DEFINED THE 99TH PERCENTILE OF cTnI DISTRIBUTION IN A REFERENCE POPULATION, HAS BEEN CONFIRMED THE DECISION THRESHOLD FOR NM DIAGNOSIS. Performed By: #### C MREP #### [facility] [address] [place] [address] Dr. Skylar Chadwick CBC AUTO DIFFon 07-02-2022 BASO # 0.1 103/ul Normal 0.0-0.1 [facility] [place] Comment on above: Performed By: #### C AILYN, BMP #### [facility] [address] [place] [address] Dr. Skylar Chadwick Basophils/100 WBC (Bld) 1.3 % Normal 0.2-2.0 [facility] [place] Comment on above: Performed By: #### C AILYN, BMP #### [facility] [address] [place] [address] Dr. Skylar Chadwick EO # 0.6 103/ul Normal 0.0-0.7 [facility] [place] Comment on above: Performed By: #### C AILYN, BMP #### [facility] [address] [place] [address] Dr. Skylar Chadwick Eosinophils/100 WBC (Bld) 7.1 % Critically high 0.9-7.0 [facility] [place] Comment on above: Performed By: #### C AILYN, BMP #### [facility] [address] [place] [address] Dr. Skylar Chadwick Erythrocyte distribution width (RBC) [Ratio] 13.0 % Normal 11.0-15.0 [facility] [place] Comment on above: Performed By: #### C AILYN, BMP #### [facility] [address] [place] [address] Dr. Skylar Chadwick Hematocrit (Bld) [Volume fraction] 37.2 % Critically low 42.0-54.0 [facility] [place] Comment on above: Performed By: #### C AILYN, BMP #### [facility] [address] [address] [address] Skylar Chadwick Hemoglobin (Bld) [Mass/Vol] 13.2 g/dL Critically low 14.0-18.0 [facility] [place] Comment on above: Performed By: #### C CARLOS ENRIQUEM, BMP #### [facility] [address] [address] [address] Skylar Chadwick IG # 0.02 10e3/ul Normal 0.00-0.03 [facility] [place] Comment on above: Performed By: #### C AILYN, BMP #### [facility] [address] [address] [address] Skylar Chadwick IG % 0.3 % Normal 0.0-0.5 [facility] [place] Comment on above: Performed By: #### C AILYN, BMP #### [facility] [address] [address] [address] Skylar Chadwick LYMPH # 2.2 103/ul Normal 1.2-3.8 [facility] Comment on above: Performed By: #### C AILYN, BMP #### [facility] [address] [address] [address] Skylar Chadwick Lymphocytes/100 WBC (Bld) 27.4 % Normal 20.5-60.0 [facility] Comment on above: Performed By: #### C AILYN, BMP #### [facility] [address] [address] [address] Skylar Chadwick MANUAL DIFF REQ NO Normal [facility] Comment on above: Performed By: #### C AILYN, BMP #### [facility] [address] [address] [address] Skylar Chadwick MCH (RBC) [Entitic mass] 32.4 pg Normal 25.9-34.0 [facility] [place] Comment on above: Performed By: #### C AILYN, BMP #### [facility] [address] [address] [address] Skylar Chadwick MCHC (RBC) [Mass/Vol] 35.5 g/dL Critically high 29.9-35.2 [facility] [place] Comment on above: Performed By: #### C MADM, BMP #### [facility] [address] [address] [address] Skylar Chadwick MCV (RBC) [Entitic vol] 91.2 fL Normal 80.0-94.0 [facility] Comment on above: Performed By: #### C MADM, BMP #### [facility] [address] [address] [address] Skylar Chadwick MONO # 1.1 103/ul Critically high 0.3-0.8 [facility] Comment on above: Performed By: #### C CARLOS ENRIQUEM, BMP #### [facility] [address] [place] [address] Dr. Skylar Chadwick Monocytes/100 WBC (Bld) 14.1 % Critically high 1.7-12.0 [facility] [place] Comment on above: Performed By: #### C MADM, BMP #### [facility] [address] [address] [address] Skylar Chadwick NEUT # 4.0 103/ul Normal 1.4-6.5 [facility] [place] Comment on above: Performed By: #### C CARLOS ENRIQUEM, BMP #### [facility] [address] [address] [address] Skylar Chadwick Neutrophils/100 WBC (Bld) 49.8 % Normal 43.0-75.0 [facility] Comment on above: Performed By: #### C MADM, BMP #### [facility] [address] [address] [address] Skyalr Chadwick Platelet mean volume (Bld) [Entitic vol] 10.5 fL Normal 9.5-13.5 [facility] [place] Comment on above: Performed By: #### C MADM, BMP #### [facility] [address] [address] [address] Skylar Chadwick PLT 159 103/ul Normal 150-450 [facility] Comment on above: Performed By: #### C MADM, BMP #### [facility] [address] [place], [place] [address] Dr. Skylar Chadwick RBC 4.08 106/ul Critically low 4.70-6.10 [facility] Comment on above: Performed By: #### C MADM, BMP #### [facility] [address] [place], [place] [address] Dr. Skylar Chadwick WBC 8.0 103/ul Normal 4.0-11.0 [facility] Comment on above: Performed By: #### C MADM, BMP #### [facility] [address] [place], [place] [address] Dr. Skylar Chadwick Covid-19 PCR (CVDTB)on 06-18 SARS-CoV-2 (COVID-19) RNA DANDY+probe Ql (Unsp spec) Not detected Normal NOT DETECTED [facility] Comment on above: Result Comment: When [...] for this test is supported by the Heliotherapist of Health and Human Service's declaration that [...] longer be used). Performed By: #### C VDTB #### [facility] [address] [place], [place] [address] Dr. Skylar Chadwick ECHOCARDIO M/2D COMPLETEon 1 09-02-2021 ECHOCARDIO M/2D COMPLETE Patient: KRISTY DOHERTY Exam Date: 07/02/2022 : 1955 Gender:M Ordering : EDDIE SISTER Admission #: [id number] Family : RUDY KING . Order #: [id number] CLICK HERE TO VIEW EXAM ECHOCARDIOGRAM REPORT [...] M.D. on 07/02/2022 at 14:11 Normal [facility] PROF CHEM 8 (BAS METB)on Anion gap [Moles/Vol] 8.4 mmol/L Normal [facility] Comment on above: Performed By: #### B MP #### [facility] [address] [place] [address] Dr. Skylar Chadwick Calcium [Mass/Vol] 8.3 mg/dL Critically low 8.5-10.1 [facility] Comment on above: Performed By: #### B MP #### [facility] [address] [address] [address] Skylar Chadwick Chloride [Moles/Vol] 97 mmol/L Critically low 98-107 [facility] [place] Comment on above: Performed By: #### B MP #### [facility] [address] [address] [address] Skylar Chadwick CO2 [Moles/Vol] 32.9 mmol/L Critically high 21.0-32.0 [facility] [place] Comment on above: Performed By: #### B MP #### [facility] [address] [place] [address] Dr. Skylar Chadwick Creatinine [Mass/Vol] 1.08 mg/dL Normal 0.70-1.30 [facility] [place] Comment on above: Performed By: #### B MP #### [facility] [address] [place] [address] Dr. Skylar Chadwick EGFR-AF ALBANIAN >60 Normal >=60 [facility] Comment on above: Performed By: #### B MP #### [facility] [address] [place] [address] Dr. Skylar Chadwick EGFR-NON AF ALBANIAN >60 Normal >=60 [facility] [place] Comment on above: Performed By: #### B MP #### [facility] [address] [place] [address] Dr. Skylar Chadwick Glucose [Mass/Vol] 114 mg/dL Critically high 74-106 [facility] Comment on above: Performed By: #### B MP #### [facility] [address] [address] [address] Skylar Chadwick Potassium [Moles/Vol] 3.3 mmol/L Critically low 3.5-5.1 [facility] [place] Comment on above: Performed By: #### B MP #### [facility] [address] [place] [address] Dr. Skylar Chadwick Sodium [Moles/Vol] 135 mmol/L Critically low 136-145 [facility] Comment on above: Performed By: #### B MP #### [facility] [address] [address] [address] Skylar Chadwick Urea nitrogen [Mass/Vol] 13.0 mg/dL Normal 7.0-18.0 [facility] [place] Comment on above: Performed By: #### B MP #### [facility] [address] [address] [address] Skylar Chadwick Urea nitrogen/Creatinine [Mass ratio] 12.0 mg/mg Normal [facility] [place] Comment on above: Performed By: #### B MP #### [facility] [address] [address] [address] Skylar Chadwick Anion gap [Moles/Vol] 8.6 mmol/L [facility] Comment on above: Performed By: #### C CARLOS ENRIQUEM, BMP #### [facility] [address] [place] [address] Dr. Skylar Chadwick Calcium [Mass/Vol] 8.6 mg/dL Normal 8.5-10.1 [facility] Comment on above: Performed By: #### C MADM, BMP #### [facility] [address] [address] [address] Skylar Chadwick Chloride [Moles/Vol] 96 mmol/L Critically low 98-107 [facility] [place] Comment on above: Performed By: #### C MADM, BMP #### [facility] [address] [address] [address] Skylar Chadwick CO2 [Moles/Vol] 34.2 mmol/L Critically high 21.0-32.0 [facility] [place] Comment on above: Performed By: #### C MADM, BMP #### [facility] [address] [address] [address] Skylar Chadwick Creatinine [Mass/Vol] 1.05 mg/dL Normal 0.70-1.30 [facility] [place] Comment on above: Performed By: #### C MADM, BMP #### [facility] [address] [address] [address] Skylar Chadwick EGFR-AF ALBANIAN >60 Normal >=60 [facility] Comment on above: Performed By: #### C MADM, BMP #### [facility] [address] [place] [address] Dr. Skylar Chadwick EGFR-NON AF ALBANIAN >60 Normal >=60 [facility] [place] Comment on above: Performed By: #### C MADM, BMP #### [facility] [address] [address] [address] Skylar Chadwick Glucose [Mass/Vol] 113 mg/dL Critically high 74-106 [facility] Comment on above: Performed By: #### C MADM, BMP #### [facility] [address] [address] [address] Skylar Chadwick Potassium [Moles/Vol] 2.8 mmol/L Critically low 3.5-5.1 [facility] [place] Comment on above: Performed By: #### C MADM, BMP #### [facility] [address] [place] [address] Dr. Skylar Chadwick Sodium [Moles/Vol] 136 mmol/L Normal 136-145 [facility] Comment on above: Performed By: #### C MADM, BMP #### [facility] [address] [place] [address] Dr. Skylar Chadwick Urea nitrogen [Mass/Vol] 10.0 mg/dL Normal 7.0-18.0 [facility] [place] Comment on above: Performed By: #### C MADM, BMP #### [facility] [address] [place] [address] Dr. Skylar Chadwick Urea nitrogen/Creatinine [Mass ratio] 9.5 mg/mg Normal [facility] [place] Comment on above: Performed By: #### C MADM, BMP #### [facility] [address] [place] [address] Dr. Skylar Chadwick US CAROTID ART BILon 07-02- 022 US CAROTID ART SHIRA EXAMINATION: US CANTU TID ART SHIRA HISTORY: Syncope COMPARISON: No relevant comparison available. [...] ASIF JOHN Date: 2022-07-02 11:23 Normal [facility] CARDIAC BONNIE ADMITon 022 CK [Catalytic activity/Vol] 201 U/L Normal 39-308 [facility] [place] Comment on above: Performed By: #### C AILYN, BMP #### [facility] [address] [place] [address] Dr. Skylar Chadwick CK.MB [Mass/Vol] 1.31 ng/mL Normal <=3.60 [facility] Comment on above: Performed By: #### C AILYN, BMP #### [facility] [address] [place] [address] Dr. Skylar Chadwick HSTROP 34.8 pg/mL Normal 4.0-76.1 [facility] [place] Comment on above: Result Comment: CUT- OFF POINTS HAVE BEEN ESTABLISHED BASED ON THE FOURTH UNIVERSAL DEFINITIONS OF MYOCARDIAL INFARCTION. THE UPPER REFERENCE LIMIT (URL) OF TROPONIN, DEFINED THE 99TH PERCENTILE OF cTnI DISTRIBUTION IN A REFERENCE POPULATION, HAS BEEN CONFIRMED THE DECISION THRESHOLD FOR NM DIAGNOSIS. Performed By: #### C AILYN, BMP #### [facility] [address] [address] [address] Skylar Chadwick NHAN 336 ng/mL Critically high 16-96 [facility] Comment on above: Performed By: #### C AILYN, BMP #### [facility] [address] [place] [address] Dr. Skylar Chadwick CBC AUTO DIFFon 07-01-2022 BASO # 0.1 103/ul Normal 0.0-0.1 [facility] [place] Comment on above: Performed By: #### C BC #### [facility] [address] [place] [address] Dr. Skylar Chadwick Basophils/100 WBC (Bld) 1.2 % Normal 0.2-2.0 [facility] [place] Comment on above: Performed By: #### C BC #### [facility] [address] [place] [address] Dr. Skylar Chadwick EO # 0.5 103/ul Normal 0.0-0.7 [facility] [place] Comment on above: Performed By: #### C BC #### [facility] [address] [place] [address] Dr. Skylar Chadwick Eosinophils/100 WBC (Bld) 6.3 % Normal 0.9-7.0 [facility] [place] Comment on above: Performed By: #### C BC #### [facility] [address] [place] [address] Dr. Skylar Chadwick Erythrocyte distribution width (RBC) [Ratio] 12.9 % Normal 11.0-15.0 [facility] [place] Comment on above: Performed By: #### C BC #### [facility] [address] [place] [address] Dr. Skylar Chadwick Hematocrit (Bld) [Volume fraction] 38.0 % Critically low 42.0-54.0 [facility] [place] Comment on above: Performed By: #### C BC #### [facility] [address] [place] [address] Dr. Skylar Chadwick Hemoglobin (Bld) [Mass/Vol] 13.5 g/dL Critically low 14.0-18.0 [facility] [place] Comment on above: Performed By: #### C BC #### [facility] [address] [place] [address] Dr. Skylar Chadwick IG # 0.02 10e3/ul Normal 0.00-0.03 [facility] [place] Comment on above: Performed By: #### C BC #### [facility] [address] [place] [address] Dr. Skylar Chadwick IG % 0.2 % Normal 0.0-0.5 [facility] [place] Comment on above: Performed By: #### C BC #### [facility] [address] [address] [address] Skylar Chadwick LYMPH # 2.6 103/ul Normal 1.2-3.8 [facility] [place] Comment on above: Performed By: #### C BC #### [facility] [address] [address] [address] Skylar Cahdwick Lymphocytes/100 WBC (Bld) 30.5 % Normal 20.5-60.0 [facility] [place] Comment on above: Performed By: #### C BC #### [facility] [address] [address] [address] Skylar Chadwick MANUAL DIFF REQ NO Normal [facility] Comment on above: Performed By: #### C BC #### [facility] [address] [place] [address] Dr. Skylar Chadwick MCH (RBC) [Entitic mass] 32.2 pg Normal 25.9-34.0 [facility] [place] Comment on above: Performed By: #### C BC #### [facility] [address] [place] [address] Dr. Skylar Chadwick MCHC (RBC) [Mass/Vol] 35.5 g/dL Critically high 29.9-35.2 [facility] [place] Comment on above: Performed By: #### C BC #### [facility] [address] [place] [address] Dr. Skylar Chadwick MCV (RBC) [Entitic vol] 90.7 fL Normal 80.0-94.0 [facility] [place] Comment on above: Performed By: #### C BC #### [facility] [address] [address] [address] Skylar Chadwick MONO # 1.2 103/ul Critically high 0.3-0.8 [facility] Comment on above: Performed By: #### C BC #### [facility] [address] [place] [address] Dr. Skylar Chadwick Monocytes/100 WBC (Bld) 14.3 % Critically high 1.7-12.0 [facility] [place] Comment on above: Performed By: #### C BC #### [facility] [address] [address] [address] Skylar Chadwick NEUT # 4.0 103/ul Normal 1.4-6.5 [facility] Comment on above: Performed By: #### C BC #### [facility] [address] [address] [address] Skylar Chadwick Neutrophils/100 WBC (Bld) 47.5 % Normal 43.0-75.0 [facility] [place] Comment on above: Performed By: #### C BC #### [facility] [address] [place] [address] Dr. Skylar Chadwick Platelet mean volume (Bld) [Entitic vol] 10.4 fL Normal 9.5-13.5 [facility] [place] Comment on above: Performed By: #### C BC #### [facility] [address] [place] [address] Dr. Skylar Chadwick PLT 175 103/ul Normal 150-450 [facility] Comment on above: Performed By: #### C BC #### [facility] [address] [place] [address] Dr. Skylar Chadwick RBC 4.19 106/ul Critically low 4.70-6.10 [facility] Comment on above: Performed By: #### C BC #### [facility] [address] [place] [address] Dr. Skylar Chadwick WBC 8.4 103/ul Normal 4.0-11.0 [facility] Comment on above: Performed By: #### C BC #### [facility] [address] [place] [address] CSPINE WO CONon [...] BRIAN BRADSHAW Date: 2022-07-01 21:26 Normal [facility] CT HEAD WO CONon 07-01-2022 CT [...] of the sinuses are not in the [id number]. The middle ears are aerated the mastoid [...] ADIEL KERN Date: 2022-07-01 20:44 Normal [facility] D-DIMERon 07-01-2022 D-DIMER 0.35 mg/L FEU Normal <=0.59 [facility] Comment on above: Performed By: #### C AILYN, BMP #### [facility] [address] [place] [address] Dr. Skylar Chadwick D-DIMER COMMENTS SEE BELOW Normal [facility] Comment on above: Result Comment: Incr eases [...] Performed By: #### C AILYN, BMP #### [facility] [address] [place] [address] Dr. Skylar Chadwick PROF CHEM 8 (BAS METB)on Anion gap [Moles/Vol] 13.5 mmol/L Normal [facility] [place] Comment on above: Performed By: #### C AILYN, BMP #### [facility] [address] [place] [address] Dr. Skylar Chadwick Calcium [Mass/Vol] 8.8 mg/dL Normal 8.5-10.1 [facility] Comment on above: Performed By: #### C AILYN, BMP #### [facility] [address] [place] [address] Dr. Skylar Chadwick Chloride [Moles/Vol] 94 mmol/L Critically low 98-107 [facility] [place] Comment on above: Performed By: #### C AILYN, BMP #### [facility] [address] [place] [address] Dr. Skylar Chadwick CO2 [Moles/Vol] 29.0 mmol/L Normal 21.0-32.0 [facility] Comment on above: Performed By: #### C AILYN, BMP #### [facility] [address] [place] [address] Dr. Skylar Chadwick Creatinine [Mass/Vol] 1.03 mg/dL Normal 0.70-1.30 [facility] [place] Comment on above: Performed By: #### C AILYN, BMP #### [facility] [address] [address] [address] Skylar Chadwick EGFR-AF ALBANIAN >60 Normal >=60 [facility] Comment on above: Performed By: #### C AILYN, BMP #### [facility] [address] [address] [address] Skylar Chadwick EGFR-NON AF ALBANIAN >60 Normal >=60 [facility] [place] Comment on above: Performed By: #### C AILYN, BMP #### [facility] [address] [address] [address] Skylar Chadwick Glucose [Mass/Vol] 111 mg/dL Critically high 74-106 [facility] Comment on above: Performed By: #### C AILYN, BMP #### [facility] [address] [place] [address] Dr. Skylar Chadwick Potassium [Moles/Vol] 2.5 mmol/L Critically low 3.5-5.1 [facility] [place] Comment on above: Performed By: #### C AILYN, BMP #### [facility] [address] [place] [address] Dr. Skylar Chadwick Sodium [Moles/Vol] 134 mmol/L Critically low 136-145 [facility] Comment on above: Performed By: #### C AILYN, BMP #### [facility] [address] [place] [address] Dr. Skylar Chadwick Urea nitrogen [Mass/Vol] 12.0 mg/dL Normal 7.0-18.0 [facility] [place] Comment on above: Performed By: #### C AILYN, BMP #### [facility] [address] [place] [address] Dr. Skylar Chadwick Urea nitrogen/Creatinine [Mass ratio] 11.7 mg/mg Normal [facility] [place] Comment on above: Performed By: #### C AILYN, BMP #### [facility] [address] [place] [address] Dr. Skylar Chadwick XR CHEST 1 Von [...] by: SOBEIDA MONCADA Date: 2022-07-01 20:44 Normal [facility] [place] Outside Colonoscopyon 2021 Outside Colonoscopy [id number] D:127 Normal [facility] RAD - MISCon 01-29-2022 RAD - MISC [id number] D:127 Normal [facility] XR COLON AIR CONTR.on 2021 XR COLON AIR CONTR. EXAMINATION: XR COLO N AIR CONTR. HISTORY: Colonoscopy abnormal COMPARISON: No relevant comparison available. FLUOROSCOPY TIME: Fluoro time measures 3 minutes 40 seconds and 22 images were obtained. TECHNIQUE: An air contrast barium enema examination was performed in the usual manner. No patient financial services manager abdominal radiograph was performed. Standard level fluoroscopic mode of operation utilized. FINDINGS: COLON: No focal obstruction, mass or stricture. Mild diverticulosis distal descending and proximal sigmoid colon. OTHER: Negative. IMPRESSION: Mild diverticulosis, otherwise normal exam Electronically authenticated by: ASIF JOHN Date: 2022-01-28 14:34 Normal [facility] [place] Pre-Certification Formon Pre-Certification Form [id number] CD:127 Normal [facility] Consent for Procedure/Surger yon 01-08-2022 Consent for Procedure/Surgery [id number] D:127 Normal [facility] Ambulatory Visit Summaryon 0 01-07-2022 [...] Seasonal allergic rhinitis Vitamin D deficiency Normal [facility] Physician Referralon 022 Physician Referral [id number] D:127 Normal [facility] Vital Signs Date Time Vital Sign Value Performing Clinician Corrie loera 02-05-2025 11:01-0400 Body height 172.7 cm Mariah Lange MD Work Phone: [facility] 02-05-2025 11:01-0400 Body mass index (BMI) [Ratio] 28.59 kg/m2 Mariah Lange MD Work Phone: [facility] 02-05-2025 11:01-0400 Body weight 85.28 kg Mariah Lange MD Work Phone: [facility] 02-05-2025 11:01-0400 Diastolic blood pressure 34 mm[Hg] Mariah Lange MD Work Phone: [facility] 02-05-2025 11:01-0400 Heart rate 88 /min Mariah Lange MD Work Phone: [facility] 02-05-2025 11:01-0400 Systolic blood pressure 156 mm[Hg] Mariah Lange MD Work Phone: [facility] 12-12-2024 15:08-0400 Body height 172.7 cm Rudy King MD Work Phone: [facility] 12-12-2024 15:08-0400 Body mass index (BMI) [Ratio] 29.5 kg/m2 Rudy King MD Work Phone: [facility] 12-12-2024 15:08-0400 Body temperature 97.81 [degF] Rudy King MD Work Phone: [facility] 12-12-2024 15:08-0400 Body weight 88 kg Rudy King MD Work Phone: [facility] 12-12-2024 15:08-0400 Diastolic blood pressure 60 mm[Hg] Rudy King MD Work Phone: [facility] 12-12-2024 15:08-0400 Heart rate 94 /min Rudy King MD Work Phone: [facility] 12-12-2024 15:08-0400 Respiratory rate 18 /min Rudy King MD Work Phone: [facility] 12-12-2024 15:08-0400 SaO2% (BldA) [Mass fraction] 96 % Rudy King MD Work Phone: [facility] 12-12-2024 15:08-0400 Systolic blood pressure 104 mm[Hg] Rudy King MD Work Phone: [facility] Encounters Encounter Date Encounter Type Care Provider Facility Start: 05-04-2025 Evaluation and manag ement of inpatient RISA CASTILLO [facility] Start: 05-03-2025 Evaluation and manag ement of inpatient RAFA [facility] Start: 04-30-2025 Evaluation and manag ement of inpatient BEBA [facility] Start: 04-29-2025 Evaluation and manag ement of inpatient PEDRO [facility] Start: 04-28-2025 Evaluation and manag ement of inpatient PEDRO [facility] Start: 04-25-2025 Evaluation and manag ement of inpatient PEDRO [facility] Start: 04-23-2025 Evaluation and manag ement of inpatient RAFA [facility] Start: 04-23-2025 Evaluation and manag ement of inpatient FANI [facility] Start: 04-23-2025 Evaluation and manag ement of inpatient ALEKSANDR KACEY [facility] Start: 04-20-2025 Evaluation and manag ement of inpatient [facility] Start: 04-19-2025 Evaluation and manag ement of inpatient [facility] Start: 04-19-2025 Evaluation and manag ement of inpatient PAULO [facility] Start: 04-19-2025 Evaluation and manag ement of inpatient HAKAN NICOLAS [facility] Start: 04-19-2025 End: 05-04-2025 [facility] Start: 04-03-2025 End: 04-03-[address] [facility] Start: 03-26-2025 End: 03-26-[address] [facility] Start: 03-26-2025 ambulatory BEBA [facility] Start: 02-28-2025 ambulatory BEBA [facility] Start: 02-26-2025 End: 02-26-2025 ambulatory [facility] Start: 02-15-2025 ambulatory [facility] Start: 02-07-2025 ambulatory BEBA ALFORD [facility] Start: 02-07-2025 Evaluation and manag ement of inpatient CHUCK [facility] Start: 02-06-2025 End: 02-07-2025 Evaluation and management of inpatient [facility] Start: 02-05-2025 End: 02-05-2025 [facility] eleanor Lange MD Work Phone: [facility] Start: 02-05-2025 End: 02-05-2025 Gloria Lange MD Work Phone: [facility] Start: 02-05-2025 End: 02-05-2025 Office outpatient visit 15 minutes Mariah Lange MD Work Phone: [facility] Comment on above: Nasal polyp (Primary Dx) Start: 02-05-2025 End: 02-05-2025 ambulatory MARIAH LANGE Not Available Start: 01-30-2025 End: 01-30-2025 Clinisync Result Encounter Generic External Data Provider [facility] Unsolicited Start: 01-30-2025 End: 01-30-2025 Clinisync Result Encounter Generic External Data Provider [facility] Unsolicited Start: 12-29-2024 ambulatory [facility] Start: 12-12-2024 End: 12-12-2024 Office outpatient visit 25 minutes Rudy King MD Work Phone: [facility] Comment on above: Benign essential hyp ertension (CMS/HCC) (Primary Dx); Chronic HFrEF (heart failure with reduced ejection fraction) (CMS/HCC); Mild persistent asthma without complication (CMS/HCC); Paroxysmal atrial fibrillation (CMS/HCC) Start: 12-12-2024 End: 12-12-2024 ambulatory RUDY KING Not Available Start: 12-12-2024 End: 12-12-2024 Gloria iKng MD Work Phone: [facility] Start: 12-12-2024 End: 12-12-2024 Gloria King MD Work Phone: [facility] Start: 12-05-2024 End: 12-05-2024 Clinisync Result Encounter Generic External Data Provider [facility] Unsolicited Start: 12-05-2024 End: 12-05-2024 Clinisync Result Encounter Generic External Data Provider [facility] Unsolicited Start: 12-01-2024 End: 12-01-2024 ambulatory [facility] Start: 11-30-2024 ambulatory [facility] Start: 11-13-2024 ambulatory [facility] Start: 11-07-2024 End: 11-07-2024 ambulatory [facility] Start: 10-24-2024 ambulatory [facility] Start: 09-21-2024 ambulatory [facility] Start: 08-21-2024 ambulatory [facility] Start: 08-16-2024 End: 08-16-2024 Clinisync Result Encounter Generic External Data Provider [facility] Unsolicited Start: 08-16-2024 End: 08-16-2024 Clinisync Result Encounter Generic External Data Provider [facility] Unsolicited Start: 08-11-2024 ambulatory [facility] Start: 07-31-2024 ambulatory [facility] Start: 07-03-2024 End: 07-03-2024 ambulatory [facility] Start: 06-20-2024 ambulatory [facility] Start: 06-12-2024 ambulatory [facility] Start: 06-02-2024 ambulatory [facility] Start: 05-31-2024 ambulatory [facility] Start: 05-31-2024 Encounter for preprocedural cardiovascular examination [facility] Start: 12-03-2022 End: 12-03-2022 ambulatory Kristy Beatty Facility:[facility] Start: 11-10-[address] RUDY KING Facil ity:[facility] Start: 11-02-2022 End: 11-03-2022 ambulatory ALEXIS GUERIN LUANA Facility:[facility] Start: 10-28-2022 End: 10-29-[address] BORIS KIM Facility:[facility] Start: 09-05-2022 End: 09-06-2022 ambulatory DAVID RIOS Facility:[facility] Start: 08-31-[address] BORIS KIM Fac ility:[facility] Start: 08-18-2022 End: 08-19-[address] RUDY KING Facility:[facility] Start: 08-18-2022 End: 08-19-[address] RUDY KING Facility:[facility] Start: 08-03-2022 End: 08-04-[address] RUDY KING Facility:[facility] Start: 07-02-2022 End: 07-02-[address] RUDY KING Facility:[facility] Start: 01-28-2022 End: 01-28-[address] RUDY KING Facility:[facility] Procedures Date Procedure Procedure Detail Performing Clinician Start: 04-03-2025 Follow-up visit Follow-up CHUCK FUNEZ Start: 01-30-2025 ALL BASIC METABOLIC PANEL Generic External Data Provider Start: 12-05-2024 CA ECHO DOPPLER COMPLETE Generic External Data Provider Start: 11-13-2024 Follow-up visit MESERET S PENCER Start: 08-16-2024 ALL BASIC METABOLIC PANEL Generic External Data Provider Start: 07-03-2024 Follow-up visit MESERET S PENCER Start: 01-25-2008 Colonoscopy Generic Pr ovider Plan of Treatment Date Care Activity Detail Author Start: 06-19-2025 End: 06-19-2025 Patient encounter procedure 06/19/2025 10:00 AM EST Office Visit [facility] [address] [place] [id number] Rudy King MD [address] [place] [address] [facility] Start: 03-19-2025 Influenza vaccination [facility] Start: 02-05-2025 End: 02-05-2025 Patient encounter procedure [facility] Comment on above: Arrived Start: 12-12-2024 End: 12-12-2024 Patient encounter procedure [facility] Comment on above: Arrived Start: 03-19-2024 Influenza vaccination Influenza Vacc ine (#1) [facility] Start: 01-24-2018 Screening for malign ant neoplasm of colon [facility] Start: 09-19-1974 Pneumococcal Vaccine : 65+ Years (1 of 2 - PCV) Pneumococcal Vaccine: 65+ Years (1 of 2 - PCV) [facility] Start: 09-19-1961 Pneumococcal Vaccine : 65+ Years (1 of 2 - PCV) Pneumococcal Vaccine: 65+ Years (1 of 2 - PCV) [facility] Start: 1955 Medicare Annual Well ness (AWV) Medicare Annual Wellness (AWV) [facility] Start: 1955 Screening for malign ant neoplasm of colon [facility] Immunizations Immunization Date Immunization Notes Care Provider Fa cility 07-01-2022 diphtheria, tetanus toxoids and pertussis vaccine Generic Provider [facility] 10-11-2020 Pfizer Purple Cap SA RS-CoV-2 Vaccination Generic Provider [facility] 2020 Pfizer Purple Cap SA RS-CoV-2 Vaccination Generic Provider [facility] 07-29-2012 influenza virus vacc ine, unspecified formulation Generic Provider [facility] Payers Date Payer Category Payer Self-pay 2022 Medicare (Managed Care) [id number]. [id number] 1959 Medicare [id number] 1959 Unknown [id number] 1955 Unknown [id number] 2.16.84 [id number] 1955 Unknown [id number] 2.16.84 [id number] 1955 Unknown [id number] 2.16.84 [id number] 1955 Unknown [id number] 2.16.84 [id number] 1955 Unknown [id number] 2.16.84 [id number] 1955 Unknown [id number] 2.16.84 [id number] 1955 Unknown [id number] 2.16.84 [id number] 1955 Unknown [id number] 2.16.84 [id number] 1955 Unknown [id number] 2.16.84 [id number] 1955 Unknown [id number] 2.16.84 [id number] 1955 Unknown [id number] 2.16.8 [id number] 1955 Unknown [id number] 2.16.84 [id number] Unknown [id number] 2.16.8 [id number] Social History Date Type Detail Facility Start: 03-02-[address] [facility] Never smoked tobacco [facility] Start: 03-02-2023 Tobacco use and exposure User of smo keless tobacco [facility] History of tobacco use Chews Tobacco [facility] Start: 01-17-2024 End: 02-05-2025 Alcoholic beverage intake Current drinker of alcohol (finding) [facility] Start: 07-22-2023 End: 01-17-2024 History of Social function [facility] Start: 07-22-2023 End: 01-17-2024 Tobacco use panel [facility] Start: 03-08-2023 Alcohol Comment caffeine intak e: 1-2 cups per day of coffee/tea [facility] Start: 1955 Sex assigned at Not on file [facility] Clinical Notes 01-07-2022 to 05-04-2025 Mariah Lange MD - 02/05/2025 11:10 AM EDJac King MD - 12/12/2024 9:03 PM Donald King MD - 12/12/2024 9:02 PM Donald King MD - 12/12/2024 9:02 PM EDT Note Date & Type Note Facility 05-04-2025 Note [facility] 05-04-2025 Note [facility] 05-04-2025 Note [facility] 05-04-2025 Note [facility] 05-04-2025 Note [facility] 05-03-2025 Note [facility] 05-03-2025 Note [facility] 05-03-2025 Note [facility] 05-03-2025 Note - Nonischemic cardio myopathy. - Echo this admission showed EF 20%. - Continue Toprol and Farxiga. - Hold Entresto and spironolactone due to hypotension. - Right cath today. [facility] 05-03-2025 Note - Neck side. - Fluid cx was sent. - We will order US neck. - Start doxy empirically. [facility] 05-03-2025 Note - Due to shock. - Required CRRT in ICU. - Monitor Crea while off dialysis. - Avoid nephrotoxic agents. [facility] 05-03-2025 Note - Continue Toprol, F arxiga and spironolactone. - Hold Entresto due to LINDA. [facility] 05-03-2025 Note - Echo on admission showed early tamponade. Patient was taken to labor relations specialist for Pericardiocentesis. Right heart cath was not suggestive for tamponade. 300 ml serosanguinous fluid. - Repeated echo showed mild effusion. [facility] 05-03-2025 Note - Albuterol and swit ched from his Advair to our equivalent. [facility] 05-03-2025 Note - Currently paced. - Status post Watchman. - Continue aspirin and Plavix. [facility] 05-03-2025 Note - Required [place] Stacy and dobutamine in ICU. - Improving. [facility] 05-03-2025 Note - Nonobstructive. - Continue aspirin, Plavix, Lipitor. [facility] 05-03-2025 Note - Required [place] Stacy and dobutamine in ICU. - Improving. [facility] 05-03-2025 Note [facility] 05-03-2025 Note [facility] 05-03-2025 Note [facility] 05-03-2025 Note [facility] 05-02-2025 Note [facility] 05-02-2025 Note [facility] 05-02-2025 Note [facility] 05-02-2025 Note [facility] 05-02-2025 Note [facility] 05-01-2025 Note [facility] 05-01-2025 Note [facility] 05-01-2025 Note [facility] 05-01-2025 Note [facility] 05-01-2025 Note [facility] 05-01-2025 Note [facility] 04-30-2025 Note [facility] 04-30-2025 Note [facility] 04-30-2025 Note [facility] 04-30-2025 Note [facility] 04-29-2025 Note [facility] 04-29-2025 Note [facility] 04-29-2025 Note [facility] 04-29-2025 Note [facility] 04-28-2025 Note [facility] 04-28-2025 Note [facility] 04-28-2025 Note [facility] 04-28-2025 Note [facility] 04-27-2025 Note [facility] 04-27-2025 Note [facility] 04-27-2025 Note [facility] 04-27-2025 Note [facility] 04-26-2025 Note [facility] 04-26-2025 Note [facility] 04-26-2025 Note [facility] 04-26-2025 Note [facility] 04-25-2025 Note [facility] 04-25-2025 Note [facility] 04-25-2025 Note [facility] 04-24-2025 Note - Nonischemic cardio myopathy. - Echo this admission showed EF 20%. - Continue Toprol and Farxiga. - Hold Entresto and spironolactone due to hypotension. - Right cath today. [facility] 04-24-2025 Note - Nonobstructive. - Continue aspirin, Plavix, Lipitor. [facility] 04-24-2025 Note - Continue Toprol. - Hold Entresto and spironolactone due to hypotension. [facility] 04-24-2025 Note - Albuterol and swit ched from his Advair to our equivalent. [facility] 04-24-2025 Note - CTA chest showed n o PE. - Right cath today. [facility] 04-24-2025 Note - Currently paced. - Status post Watchman. - Continue aspirin and Plavix. [facility] 04-24-2025 Note - Echo showed early tamponade. Patient was taken to labor relations specialist for Pericardiocentesis. Right heart cath was not suggestive for tamponade. 300 ml serosanguinous fluid. - Monitor BP. - Continue colchicine per Cardiology. - Repeated echo showed mild effusion. [facility] 04-24-2025 Note [facility] 04-24-2025 Note [facility] 04-24-2025 Note [facility] 04-23-2025 Note - Echo showed early tamponade. Patient was taken to labor relations specialist for Pericardiocentesis. Right heart cath was not suggestive for tamponade. 300 ml serosanguinous fluid. - Monitor BP. - Continue colchicine per Cardiology. - Repeated echo showed mild effusion. [facility] 04-23-2025 Note - Continue Toprol. - Hold Entresto and spironolactone due to hypotension. [facility] 04-23-2025 Note - Nonischemic cardio myopathy. - Echo this admission showed EF 20%. - Continue Toprol and Farxiga. - Hold Entresto and spironolactone due to hypotension. [facility] 04-23-2025 Note - We will order CTA chest due to tachycardia. - Left and right cath tomorrow. [facility] 04-23-2025 Note - Status post Watchm an. - Continue aspirin and Plavix. [facility] 04-23-2025 Note - Nonobstructive. - Continue aspirin, Plavix, Lipitor. [facility] 04-23-2025 Note - Albuterol and swit ched from his Advair to our equivalent. [facility] 04-23-2025 Note [facility] 04-23-2025 Note [facility] 04-22-2025 Note - Nonischemic cardio myopathy - Echo this admission showed EF 60%. - Hold Farxiga, Toprol, Entresto, spironolactone due to hypotension. Might resume tomorrow. [facility] 04-22-2025 Note - Status post Watchm an. - Continue aspirin and Plavix. [facility] 04-22-2025 Note - Albuterol and swit ched from his Advair to our equivalent. [facility] 04-22-2025 Note [facility] 04-22-2025 Note - Hold Toprol, Entre sto, spironolactone due to hypotension. Might resume tomorrow [facility] 04-22-2025 Note - Nonobstructive. - Continue aspirin, Plavix, Lipitor. [facility] 04-22-2025 Note [facility] 04-22-2025 Note [facility] 04-22-2025 Note [facility] 04-21-2025 Note - Nonischemic cardio myopathy - Echo this admission showed EF 60%. - Hold Farxiga, Toprol, Entresto, spironolactone due to hypotension. [facility] 04-21-2025 Note [facility] 04-21-2025 Note [facility] 04-21-2025 Note [facility] 04-21-2025 Note - Nonobstructive. - Continue aspirin, Plavix, Lipitor. - Hold Toprol due to hypotension. [facility] 04-21-2025 Note - Hold Toprol, Entre sto, spironolactone due to hypotension. [facility] 04-21-2025 Note This report has been cancelled. [facility] 04-21-2025 Note - Restarted patients albuterol and switched from his Advair to our equivalent. [facility] 04-21-2025 Note - Status post Watchm an. - Continue aspirin and Plavix. [facility] 04-21-2025 Note [facility] 04-20-2025 Note [facility] 04-20-2025 Note - Follow up urine Na and osmol. - Improving. [facility] 04-20-2025 Note - Hold Toprol, Entre sto, spironolactone due to hypotension. [facility] 04-20-2025 Note - Restarted patients albuterol and switched from his Advair to our equivalent. [facility] 04-20-2025 Note - Status post Watchm an. - Continue aspirin and Plavix. [facility] 04-20-2025 Note - Nonischemic cardio myopathy with recovery. - Echo this admission showed EF 60%. - Hold Farxiga, Toprol, Entresto, spironolactone due to hypotension. [facility] 04-20-2025 Note - Nonobstructive. - Continue aspirin, Plavix, Lipitor. - Hold Toprol due to hypotension. [facility] 04-20-2025 Note [facility] 04-20-2025 Note [facility] 04-20-2025 Note [facility] 04-20-2025 Note [facility] 04-19-2025 Note [facility] 04-19-2025 Note [facility] 04-19-2025 Note [facility] 04-19-2025 Note Satisfactory for allan luation. Examination of the ThinPrep slide and cell block reveals rare benign mesothelial cells and abundant acute inflammation. [facility] Comment on above: Performed By: #### L [id number] ####[facility] [place] [address] 04-19-2025 Note This report has been cancelled. [facility] 04-19-2025 Note Sodium 126 Will continue to monitor Urine sodium and serum osmolality ordered [facility] 04-19-2025 Note Continue aspirin buck vix and lipitor EKG is mostly unchanged from previous Troponins at outside hospital were downtrending from 11.5 to 10.5 [facility] 04-19-2025 Note Patient states he tsai s been hypotensive for two weeks Holding antihypertensives for now Will continue to monitor patients blood pressure [facility] 04-19-2025 Note Restarted patients a lbuterol and switched from his Advair to our equivalent [facility] 04-19-2025 Note atrial fibrillation status post Watchman Will continue aspirin and plavix Will continue to monitor [facility] 04-19-2025 Note [facility] 04-19-2025 Note [facility] 04-19-2025 Note [facility] 04-03-2025 Note [facility] 02-26-2025 Note [facility] 02-07-2025 Note 45-day post Watchman CTA order [facility] 02-05-2025 History of Present illness Narrative Subjective Patient ID: Kristy Doherty is a 69 y.o. male who presents for Sinusitis (1 year sinus check) Pt using dupixent every 2 weeks and notes good symptom control. Family History Problem Relation Name Age of Onset Heart disease Mother Stroke Mother Diabetes Mother COPD Father Heart disease Sibling Active Ambulatory Problems Diagnosis Date Noted Mild persistent asthma without complication (HCC) 07/29/2012 Benign essential hypertension 05/27/2011 Allergic rhinitis due to pollen 03/02/2023 Chronic pansinusitis 03/02/2023 Seasonal allergic rhinitis 08/31/2022 Chronic HFrEF (heart failure with reduced ejection fraction) (HCC) 07/06/2022 Coronary artery disease involving [place] coronary artery of [place] heart without angina pectoris 07/06/2022 Depressive disorder 08/31/2022 Dyslipidemia 08/31/2022 Hyperlipidemia 07/02/2008 ICD (implantable cardioverter-defibrillator) in place 09/15/2022 Malignant tumor of prostate (HCC) 07/02/2008 Nasal polyp 03/02/2023 Nonischemic cardiomyopathy (HCC) 09/01/2022 Prediabetes 08/31/2022 Steatosis of liver 08/31/2022 Vitamin D deficiency 08/31/2022 PAF (paroxysmal atrial fibrillation) (HCC) 07/22/2023 Resolved Ambulatory Problems Diagnosis Date Noted Chronic rhinitis 03/02/2023 History of malignant neoplasm of prostate 07/03/2022 Hypertension 07/03/2022 Hypomagnesemia 07/03/2022 New onset of congestive heart failure (HCC) 07/02/2022 Syncope and collapse 07/02/2022 Past Medical History: Diagnosis Date A-fib (HCC) Arrhythmia At low risk for fall Chronic seasonal allergic rhinitis due to pollen Fatty liver Gouty arthritis of foot Moderate persistent asthma in adult without complication (HCC) Nasal sinus polyp Obesity with body mass index (BMI) of 30.0 to 39.9 Pre-diabetes Prostate cancer (HCC) Renal cyst, right Past Surgical History: Procedure Laterality Date CARDIAC CATHETERIZATION 06/2022 CARDIAC DEFIBRILLATOR PLACEMENT 09/04/2022 OTHER SURGICAL HISTORY 2010 polyp removal, left sphenoidectomy OTHER SURGICAL HISTORY Bilateral 2010 Functional Endoscopic Surgery PROSTATECTOMY 2007 No Known Allergies Current Outpatient Medications on File Prior to Visit Medication Sig Dispense Refill albuterol HFA 90 mcg/act inhaler Inhale 2 puffs every 4 (four) hours if needed for wheezing 8.5 g 1 allopurinol (Zyloprim) 300 MG tablet TAKE 1 TABLET BY MOUTH DAILY 270 tablet 0 atorvastatin (Lipitor) 40 MG tablet Take 40 mg by mouth 1 (one) time each day at the same time Dupixent 300 MG/2ML injection Inject 300 mg under the skin every 14 (fourteen) days Eliquis 5 MG tablet Take 5 mg by mouth in the morning and 5 mg before bedtime. Farxiga 10 MG Take 10 mg by mouth 1 (one) time each day at the same time fluticasone (Flonase) 50 MCG/ACT nasal spray instill 1 spray IN EACH NOSTRIL DAILY 16 g 1 Fluticasone-Salmeterol 500-50 MCG/ACT aerosol powder Inhale 1 puff in the morning and 1 puff before bedtime. 60 each 3 metoprolol succinate XL (Toprol-XL) 50 MG 24 hr tablet Take 50 mg by mouth Daily sacubitril-valsartan (Entresto) 49-51 MG tablet Take 1 tablet by mouth in the morning and 1 tablet in the evening. spironolactone (Aldactone) 25 MG tablet Take 25 mg by mouth in the morning. No current facility-administered medications on file prior to visit. Objective Last Recorded Vitals Vitals: 02/05/25 1101 BP: (!) 156/34 Pulse: 88 ENT Physical Exam Nose Nose comments: Scant shira polyposis Assessment/Plan Diagnoses and all orders for this visit: Nasal polyp Excellent poly control with dupixent use as prescribed. Continue current regimen documented in this encounter [facility] 12-12-2024 History of Present illness Narrative Associated Problem(s): Paroxysmal atrial fibrillation (CMS/HCC) In NSR and continue medication. Follow up with cardiology. Bleeding problems on Eliquis and recommend device such as Watchman device to stop anticoagulation. Associated Problem(s): Mild persistent asthma without complication (CMS/HCC) No SOB and continue advair. Use albuterol PRN. Associated Problem(s): Chronic HFrEF (heart failure with reduced ejection fraction) ([facility]/HCC) No edema and continue medication. Follow up with cardiology. Associated Problem(s): Benign essential hypertension ([facility]/HCC) BP controlled and monitor PRN. Images from the original note were not included. Subjective Patient ID: Kristy Doherty is a 69 y.o. male who presents for Follow-up (Discuss watchman device). Follow up HTN, asthma, allergies, CHF, and afib. Patient feels well today. Following with cardiology and discussing Watchman device or similar. On Eliquis but continues to have bleeding problems. Easy bruising and frequently gets open, bleeding areas on arms. Cardiology discussed device to close left atrial appendage and then wouldn't require anticoagulation. Checking BP PRN and typically controlled. BP normal today. Taking medication daily and tolerating without side effects. Asthma stable. No SOB or cough with exertion. No nocturnal cough or SOB. Using advair daily and albuterol PRN which helps. Allergies controlled with medication. No congestion or rhinorrhea. No TSAI or sinus pressure. Ears not plugged or popping. Edema controlled with medication. Mild swelling at end of day and if on feet a lot. Edema improved in am and with elevation. Afib stable. No palpitations or heart racing. Not lightheaded or dizzy. Review of Systems Constitutional: Negative for fatigue. Respiratory: Negative for cough, shortness of breath and wheezing. Cardiovascular: Negative for chest pain and palpitations. Gastrointestinal: Negative for abdominal pain, diarrhea, nausea and vomiting. Genitourinary: Negative for dysuria. Objective Physical Exam Constitutional: General: He is not in acute distress. Appearance: Normal appearance. HENT: Head: Normocephalic. Right Ear: Tympanic membrane and ear canal normal. Left Ear: Tympanic membrane and ear canal normal. Eyes: Extraocular Movements: Extraocular movements intact. Pupils: Pupils are equal, round, and reactive to light. Cardiovascular: Rate and Rhythm: Normal rate and regular rhythm. Heart sounds: No murmur heard. No friction rub. No gallop. Pulmonary: Breath sounds: Normal breath sounds. No wheezing, rhonchi or rales. Abdominal: General: Bowel sounds are normal. There is no distension. Palpations: Abdomen is soft. Tenderness: There is no abdominal tenderness. There is no guarding or rebound. Musculoskeletal: Left lower leg: No edema. Neurological: Mental Status: He is alert. Assessment/Plan Problem List Items Addressed This Visit Mild persistent asthma without complication (CMS/HCC) No SOB and continue advair. Use albuterol PRN. Benign essential hypertension (CMS/HCC) - Primary BP controlled and monitor PRN. Chronic HFrEF (heart failure with reduced ejection fraction) (CMS/HCC) No edema and continue medication. Follow up with cardiology. Paroxysmal atrial fibrillation (CMS/HCC) In NSR and continue medication. Follow up with cardiology. Bleeding problems on Eliquis and recommend device such as Watchman device to stop anticoagulation. documented in this encounter [facility] 11-13-2024 Note [facility] 07-03-2024 Note [facility] 08-18-2022 Note PROCEDURE: XR FOOT L T [...] 2022-08-18 15:43 [facility] 08-04-2022 Note PROCEDURE: XR FOOT L T [...] authenticated by: ASIF JOHN Date: 2022-08-04 08:48 [facility] 01-28-2022 Note OPERATIVE NOTE OPERATION DATE: 01/28/2022 [...] in 10 years. CC: Rudy King M.D. [facility] Signed and Approved by: DR RAVI GERONIMO . 01/30/2022 12:35:00 [facility] 01-07-2022 Note Chief Complaint consultation for screening [...] Brother. Primary malignant neoplasm of prostate: Brother. [facility] Comment on above: Result Comment: Elec tronically Signed By: ANGELICA KLEIN, Ravi R\.br\Date and Time Signed: 01/07/22 16:19 EDT Evaluation note Diagnosis Benign essential hypertension (CMS/HCC)- Primary Essential hypertension, benign Mild persistent asthma without complication (CMS/HCC) Seasonal allergic rhinitis due to pollen Chronic HFrEF (heart failure with reduced ejection fraction) (CMS/HCC) Paroxysmal atrial fibrillation (CMS/HCC) Atrial fibrillation Benign essential hypertension (CMS/HCC)- Primary Essential hypertension, benign Chronic HFrEF (heart failure with reduced ejection fraction) (CMS/HCC) Mild persistent asthma without complication (CMS/HCC) Paroxysmal atrial fibrillation (CMS/HCC) Atrial fibrillation documented in this encounter [facility] HealthcareEvaluation note* Diagnosis Benign essential hypertension- Primary Essential hypertension, benign Mild persistent asthma without complication (HCC) Seasonal allergic rhinitis due to pollen Chronic HFrEF (heart failure with reduced ejection fraction) (HCC) Paroxysmal atrial fibrillation (HCC) Atrial fibrillation Benign essential hypertension- Primary Essential hypertension, benign Chronic HFrEF (heart failure with reduced ejection fraction) (HCC) Mild persistent asthma without complication (HCC) Paroxysmal atrial fibrillation (HCC) Atrial fibrillation Nasal polyp- Primary Unspecified nasal polyp documented in this encounter [facility] Summary Purpose Family History No Family History [...] section and content) DATE CREATED AUTHOR 02/04/2022 [facility] DATE CREATED AUTHOR AUTHOR'S ORGANIZ ATION 11/27/2022 [facility] DATE CREATED AUTHOR AUTHOR'S ORGANIZ ATION 12/25/2022 [facility] DATE CREATED AUTHOR AUTHOR'S ORGANIZ ATION 02/06/2025 [facility] DATE CREATED AUTHOR AUTHOR'S ORGANIZ ATION 05/07/2025 [facility] Care Teams (unrecognized sec tion and content) Malt Loader Relationship Specialty Start Date End Date Rudy King MD [address] [place] [id number] PCP - General Family Medicine 01/17/24 Malt Loader Relationship Specialty Start Date End Date Rudy King MD [address] [place] [phone] PCP - General Family Medicine 01/17/24 Malt Loader Relationship Specialty Start Date End Date Rudy King MD [address] [place] [phone] PCP - General Family Medicine 01/17/24 Malt Loader Relationship Specialty Start Date End Date Rudy King MD [address] [place] [phone] PCP - General Family [facility] 01/17/24 Malt Loader Relationship Specialty Start Date End Date Rudy King MD [address] [place] [phone] PCP - General Family Medicine 01/17/24 Reason for Visit (unrecogniz ed section and content) Reason Comments Follow-up Discuss watchman dev ice Reason Comments Sinusitis 1 year sinus check FOR RECORDS PERTAINING TO PATIENTS WHO ARE [...] BE BASED ON THE PRIMARY CLINICAL RECORDS. [employer] [facility]. provides no warranty or guarantee of the accuracy or completeness of information in this document.
--- OUTSIDE RECORDS SUMMARY | 2025-05-07 07:54 | XMS_ITS | Clinical Summary ---
Author Organization [facility] Address [facility] [place] [address] Care Team Providers Care Patient Coordinator Name Role Phone Arturo PIMENTEL MD, Dakota Franco Primary Care Provider [phone] Allergies No known active allergies Medications simvastatin 40 mg tablet Take 40 mg by mouth once daily. Active fluticasone 50 mcg/actuation nasal spray Use 1 Rena Lara in each nostril once daily. Active lisinopril-hydr [...] of 2) 09/19/2005 Diabetes Screening 03/23/2015 03/23/2012 Advance Directive Discussion 07/19/2024 Covid-19 Vaccine (1 - 2024- season) 2025 Influenza Vaccine (#1) 2025 07/29/2012 RSV Vaccine (1 - 1-dose 75+ series) 09/19/2030 Procedures Procedure Name Priority Date/Time Associated Diagnosis Comments BASIC METABOLIC PANEL STAT 03/23/2012 9:22 AM EDT Pre-op testing from Last 3 Months or Most Recently Relevant to Health Maintenance Results * (ABNORMAL) BASIC METABOLIC PNL (03/23/2012 9:22 AM EDT) Glucose 116(H) 65 - 100 mg/dL [facility] BUN 18 10 - 25 mg/dL [facility] Creatinine 1.01 0.70 - 1.40 mg/dL [facility] Sodium 140 135 - 146 mmol/L [facility] Potassium 3.8 3.5 - 5.0 mmol/L [facility] Chloride 99 98 - 110 mmol/L [facility] CO2 27 23 - 32 mmol/L [facility] Anion Gap 14 0 - 15 mmol/L [facility] Calcium 10.1 8.5 - 10.5 mg/dL [facility] eGFR- >60 [facility] eGFR-All Other Races >60 . [facility] Comment: eGFR (Estimated GFR) Units of [...] EDT Joaquín Ferrell MD LABORATORY Final Result [facility] [address] [place] [address] from Last 3 Months or Most Recently Relevant to Health Maintenance Insurance [facility] [employer] PPO Care Teams Patient Coordinator Relationship Specialty Start Date End Date Dakota Morris II, MD PCP - General Internal Medicine 02/18/12
--- OUTSIDE RECORDS SUMMARY | 2025-05-07 07:55 | XMS_ITS | Encounter Summary ---
Author Organization [facility] Address [address] [place] [address] Care Team Providers Care Gift Manager Name Role Phone Rudy Guerra MD Primary Care Provider Encounter Details Date Type Department Care Team (Late st Contact Info) Description 11/05/2024 Orders Only [facility] [address] [place] [address] Bobo Raymond MD [address] [place] [address] Social History Tobacco Use Types [...] Description 05/14/2025 1:40 PM EDT Office Visit [facility] [address] [place] [phone] Elliott Nettles, MANAGER EQUIPMENT [address] [place] [place] [address] documented as of this encounter Procedures Procedure Name Priority Date/Time Associated Diagnosis Comments CARDIAC DEVICE CHECK - REMOTE - ICD Routine 11/05/2024 12:00 AM EDT documented in this encounter Results * Cardiac device check - Remote ICD (11/05/2024 12:00 AM EDT) Anatomical Region Laterality Modality Other 11/05/2024 Bobo Raymond MD CV IMPLANTABLE CARDIAC DEVICE [facility] OCEDURES Final Result documented in this encounter Visit Diagnoses Not on filedocumented in this encounter Additional Health Concerns Infection Onset Date Last Indicated Resolved Time C. difficile Rule-Out Comment:Test discontinued 04/22/2025 04/22/2025 04/24/2025 7:3 1 AM EDT documented as of this encounter Care Teams Gift Manager Relationship Specialty Start Date End Date Rudy Guerra MD [address] [place] [address] PCP - General 07/03/22 documented as of this encounter
--- OUTSIDE RECORDS SUMMARY | 2025-05-07 07:55 | XMS_ITS | Clinical Summary ---
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 Active fluticasone (Flonase) 50 mcg/actuation nasal spray Administer 1 spray into each nostril two times daily. Shake gently. Before first use, prime pump. After use, clean tip and replace cap. Active allopurinol (Zyloprim) 300 mg tablet Take 300 mg by mouth in the morning. Active Dupixent Syringe 300 mg/2 mL syringe injection Inject 300 mg under the skin every 14 (fourteen) days. 5 Active fluticasone propion-salmeter oL (Advair Diskus) 500-50 mcg/dose diskus inhaler Inhale 1 puff two times daily. 3 Active dapagliflozin propanediol (Farxiga) 10 mgIndications:Ch ronic systolic congestive heart failure (CMS/HCC) Take 1 tablet (10 mg) by mouth once daily as directed. 90 tablet 3 4 025 Active spironolactone (Aldactone) 25 mg tabletIndication s:Chronic systolic heart failure (CMS/HCC) Take 1 tablet (25 mg) by mouth in the morning. 90 tablet 3 5 026 Active atorvastatin (Lipitor) 40 mg tabletIndication s:Coronary artery disease involving three affiliated coronary artery of three affiliated heart without angina pectoris Take 1 tablet (40 mg) by mouth at bedtime. 90 tablet 3 5 Active aspirin 81 mg chewable tabletIndication s:Presence of Watchman left atrial appendage closure device Chew 1 tablet (81 mg) with breakfast. 90 tablet 3 5 026 Active clopidogrel (Plavix) 75 mg tabletIndication s:Presence of Watchman left atrial appendage closure device Take 1 tablet (75 mg) by mouth in the morning. 90 tablet 3 5 026 Active metoprolol succinate XL (Toprol-XL) 25 mg 24 hr tabletIndication s:Heart failure with reduced ejection fraction (CMS/HCC) Take 0.5 tablets (12.5 mg) by mouth in the morning. Do not crush or chew. 15 tablet 5 025 Active doxycycline (Vibramycin) 100 mg capsuleIndicatio ns:Heart failure with reduced ejection fraction (CMS/HCC) Take 1 capsule (100 mg) by mouth two times daily for 11 doses. Take with at least 8 ounces (large glass) of water, do not lie down for 30 minutes after 11 capsule 5 025 Active colchicine 0.6 mg tabletIndication s:Heart failure with reduced ejection fraction (CMS/HCC) Take 1 tablet (0.6 mg) by mouth in the morning. 30 tablet 2 5 026 Active furosemide (Lasix) 20 mg tabletIndication s:Heart failure with reduced ejection fraction (CMS/HCC) Take 2 tablets (40 mg) by mouth if needed each day (for legs swelling or weight gain >2-3 lbs a day). 30 tablet 5 025 Active sacubitril-valsa rtan (Entresto) 97-103 mg tabletIndication s:Chronic systolic heart failure (CMS/HCC),Primar y hypertension Take 1 tablet by mouth two times daily. 180 tablet 3 4 025 Discontin ued(Stop Taking at Discharge ) metoprolol succinate XL (Toprol-XL) 50 mg 24 hr tabletIndication s:Chronic systolic heart failure (CMS/HCC) Take 1 tablet (50 mg) by mouth once daily as directed. Do not crush or chew. 90 tablet 3 5 025 Discontin ued(Stop Taking at Discharge ) amoxicillin (Amoxil) 500 mg tabletIndication s:Presence of Watchman left atrial appendage closure device Take 4 tablets (2,000 mg) by mouth 1 (one) time if needed (30-60 minute prior to dental procedures) for up to 20 doses. 20 tablet 3 5 025 Discontin ued(Stop Taking at Discharge ) Active Problems Problem Noted Date Diagnosed Date Cardiogenic shock 05/03/2025 Assessment & Plan (05/03/2025 12:13 PM EDT): - Required [place] Stacy and dobutamine in ICU. - Improving. ATN (acute tubular necrosis) 05/03/2025 Assessment & Plan (05/03/2025 12:13 PM EDT): - Due to shock. - Required CRRT in ICU. - Monitor Crea while off dialysis. - Avoid nephrotoxic agents. Hematoma of intravenous catheter site 05/03/2025 Assessment & Plan (05/03/2025 2:05 PM EDT): - Neck side. - Fluid cx was sent. - We will order US neck. - Start doxy empirically. Sinus tachycardia 04/23/2025 Assessment & Plan (05/03/2025 12:13 PM EDT): - Continue Toprol, Farxiga and spironolactone. - Hold Entresto due to LINDA. Assessment & Plan (04/24/2025 4:13 PM EDT): - Continue Toprol. - Hold Entresto and spironolactone due to hypotension. Assessment & Plan (04/23/2025 3:28 PM EDT): - Continue Toprol. - Hold Entresto and spironolactone due to hypotension. Right ventricular dysfunction 04/23/2025 Assessment & Plan (05/03/2025 12:13 PM EDT): - Required [place] Stacy and dobutamine in ICU. - Improving. Assessment & Plan (04/24/2025 4:13 PM EDT): - CTA chest showed no PE. - Right cath today. Assessment & Plan (04/23/2025 3:28 PM EDT): - We will order CTA chest due to tachycardia. - Left and right cath tomorrow. Hypotension due to hypovolemia 04/20/2025 Assessment & Plan (05/03/2025 12:13 PM EDT): - Continue Toprol, Farxiga and spironolactone. - Hold Entresto due to LINDA. Assessment & Plan (04/24/2025 4:13 PM EDT): - Continue Toprol. - Hold Entresto and spironolactone due to hypotension. Assessment & Plan (04/23/2025 3:28 PM EDT): - Continue Toprol. - Hold Entresto and spironolactone due to hypotension. Assessment & Plan (04/22/2025 8:13 PM EDT): - Hold Toprol, Entresto, spironolactone due to hypotension. Might resume tomorrow Assessment & Plan (04/21/2025 8:20 AM EDT): - Hold Toprol, Entresto, spironolactone due to hypotension. Assessment & Plan (04/20/2025 12:20 PM EDT): - Hold Toprol, Entresto, spironolactone due to hypotension. Chest pain 04/19/2025 Assessment & Plan (05/03/2025 12:13 PM EDT): - Echo on admission showed early tamponade. Patient was taken to lab manager for Pericardiocentesis. Right heart cath was not suggestive for tamponade. 300 ml serosanguinous fluid. - Repeated echo showed mild effusion. Assessment & Plan (04/24/2025 4:13 PM EDT): - Echo showed early tamponade. Patient was taken to lab manager for Pericardiocentesis. Right heart cath was not suggestive for tamponade. 300 ml serosanguinous fluid. - Monitor BP. - Continue colchicine per Cardiology. - Repeated echo showed mild effusion. Assessment & Plan (04/23/2025 3:28 PM EDT): - Echo showed early tamponade. Patient was taken to lab manager for Pericardiocentesis. Right heart cath was not suggestive for tamponade. 300 ml serosanguinous fluid. - Monitor BP. - Continue colchicine per Cardiology. - Repeated echo showed mild effusion. Assessment & Plan (04/22/2025 8:13 PM EDT): - Echo showed early tamponade. Patient was taken to lab manager for Pericardiocentesis. Right heart cath was not suggestive for tamponade. 300 ml serosanguinous fluid and pigtail was placed. - Monitor BP. - Continue colchicine per Cardiology. - Repeat echo on Monday 04/23. Assessment & Plan (04/21/2025 4:54 PM EDT): - Echo showed early tamponade. Patient was taken to lab manager for Pericardiocentesis. Right heart cath was not suggestive for tamponade. 300 ml serosanguinous fluid and pigtail was placed. - Monitor BP. - Continue colchicine per Cardiology. - Follow up blood and fluid cx. - Repeat echo on Monday 04/23. Assessment & Plan (04/20/2025 12:20 PM EDT): - Echo showed early tamponade. Patient was taken to lab manager for Pericardiocentesis. Right heart cath was not suggestive for tamponade. 300 ml serosanguinous fluid and pigtail was placed. - Monitor BP. - Continue colchicine per Cardiology. - Follow up blood and fluid cx. - Repeat echo today. Assessment & Plan (04/19/2025 4:30 PM EDT): Relevant Hx: chest pain started last night with radiation to neck and jaw Course: ct at outside hospital showed a small pericardial effusion. Workup was negative for PR Daily Update: patient arrived [place]. Pain has improved to 2/10 Today's Plan: will continue to control pain as necessary. Cardiology consulted for investigation of watchman and other etiologies. Will continue to monitor. NPO for now. Echo showed signs of cardiac tamponade. Patient taken to heart cath with plan for possible pericardiocentesis. Heart failure with reduced ejection fraction 08/2024 Assessment & Plan (05/03/2025 2:05 PM EDT): - Nonischemic cardiomyopathy. - Echo this admission showed EF 20%. - Continue Toprol and Farxiga. - Hold Entresto and spironolactone due to hypotension. - Right cath today. Assessment & Plan (04/24/2025 4:13 PM EDT): - Nonischemic cardiomyopathy. - Echo this admission showed EF 20%. - Continue Toprol and Farxiga. - Hold Entresto and spironolactone due to hypotension. - Right cath today. Assessment & Plan (04/23/2025 3:28 PM EDT): - Nonischemic cardiomyopathy. - Echo this admission showed EF 20%. - Continue Toprol and Farxiga. - Hold Entresto and spironolactone due to hypotension. Assessment & Plan (04/22/2025 8:13 PM EDT): - Nonischemic cardiomyopathy - Echo this admission showed EF 60%. - Hold Farxiga, Toprol, Entresto, spironolactone due to hypotension. Might resume tomorrow. Assessment & Plan (04/21/2025 4:54 PM EDT): - Nonischemic cardiomyopathy - Echo this admission showed EF 60%. - Hold Farxiga, Toprol, Entresto, spironolactone due to hypotension. Assessment & Plan (04/20/2025 12:20 PM EDT): - Nonischemic cardiomyopathy with recovery. - Echo this admission showed EF 60%. - Hold Farxiga, Toprol, Entresto, spironolactone due to hypotension. Assessment & Plan (04/19/2025 12:47 PM EDT): Nonischemic cardiomyopathy Last echo on 02/07 showed Global left ventricular systolic function is severely reduced. EF range is estimated at 25 % -30 %. Left ventricular wall thickness is increased. Diffuse global hypokinesis. Will continue farxiga. Holding remaining GDMT due to hypotension AICD present Will monitor intake and output as well as daily weight checks. Pericardial effusion 04/19/2025 Assessment & Plan (05/03/2025 12:13 PM EDT): - Echo on admission showed early tamponade. Patient was taken to lab manager for Pericardiocentesis. Right heart cath was not suggestive for tamponade. 300 ml serosanguinous fluid. - Repeated echo showed mild effusion. Assessment & Plan (04/24/2025 4:13 PM EDT): - Echo showed early tamponade. Patient was taken to lab manager for Pericardiocentesis. Right heart cath was not suggestive for tamponade. 300 ml serosanguinous fluid. - Monitor BP. - Continue colchicine per Cardiology. - Repeated echo showed mild effusion. Assessment & Plan (04/23/2025 3:28 PM EDT): - Echo showed early tamponade. Patient was taken to lab manager for Pericardiocentesis. Right heart cath was not suggestive for tamponade. 300 ml serosanguinous fluid. - Monitor BP. - Continue colchicine per Cardiology. - Repeated echo showed mild effusion. Assessment & Plan (04/22/2025 8:13 PM EDT): - Echo showed early tamponade. Patient was taken to lab manager for Pericardiocentesis. Right heart cath was not suggestive for tamponade. 300 ml serosanguinous fluid and pigtail was placed. - Monitor BP. - Continue colchicine per Cardiology. - Repeat echo on Monday 04/23. Assessment & Plan (04/21/2025 4:54 PM EDT): - Echo showed early tamponade. Patient was taken to lab manager for Pericardiocentesis. Right heart cath was not suggestive for tamponade. 300 ml serosanguinous fluid and pigtail was placed. - Monitor BP. - Continue colchicine per Cardiology. - Follow up blood and fluid cx. - Repeat echo on Monday 04/23. Assessment & Plan (04/20/2025 12:20 PM EDT): - Echo showed early tamponade. Patient was taken to lab manager for Pericardiocentesis. Right heart cath was not suggestive for tamponade. 300 ml serosanguinous fluid and pigtail was placed. - Monitor BP. - Continue colchicine per Cardiology. - Follow up blood and fluid cx. - Repeat echo today. Assessment & Plan (04/19/2025 4:30 PM EDT): Relevant Hx: chest pain started last night with radiation to neck and jaw Course: ct at outside hospital showed a small pericardial effusion. Workup was negative for PR Daily Update: patient arrived from [place]. Pain has improved to 2/10 Today's Plan: will continue to control pain as necessary. Cardiology consulted for investigation of watchman and other etiologies. Will continue to monitor. NPO for now. Echo showed signs of cardiac tamponade. Patient taken to heart cath with plan for possible pericardiocentesis. Hyponatremia 04/19/2025 Assessment & Plan (04/20/2025 12:20 PM EDT): - Follow up urine Na and osmol. - Improving. Assessment & Plan (04/19/2025 1:19 PM EDT): Sodium 126 Will continue to monitor Urine sodium and serum osmolality ordered Leukocytosis 04/19/2025 Atrial fibrillation 01/24/2025 Assessment & Plan (05/03/2025 12:13 PM EDT): - Currently paced. - Status post Watchman. - Continue aspirin and Plavix. Assessment & Plan (04/24/2025 4:13 PM EDT): - Currently paced. - Status post Watchman. - Continue aspirin and Plavix. Assessment & Plan (04/23/2025 3:28 PM EDT): - Status post Watchman. - Continue aspirin and Plavix. Assessment & Plan (04/22/2025 8:13 PM EDT): - Status post Watchman. - Continue aspirin and Plavix. Assessment & Plan (04/21/2025 8:20 AM EDT): - Status post Watchman. - Continue aspirin and Plavix. Assessment & Plan (04/20/2025 12:20 PM EDT): - Status post Watchman. - Continue aspirin and Plavix. Assessment & Plan (04/19/2025 12:47 PM EDT): atrial fibrillation status post Watchman -2021- Will continue aspirin and plavix Will continue to monitor Paroxysmal atrial fibrillation 07/22/2023 Overview (01/06/2024): Last Assessment & Plan: In NSR and continue medication. Follow up with cardiology. Chronic pansinusitis 03/02/2023 05/11/2023 Nasal polyp 03/02/2023 05/11/2023 ICD (implantable cardioverter-defibrillator) in place 09/15/2022 Assessment & Plan (05/03/2025 2:05 PM EDT): - Nonischemic cardiomyopathy. - Echo this admission showed EF 20%. - Continue Toprol and Farxiga. - Hold Entresto and spironolactone due to hypotension. - Right cath today. Assessment & Plan (04/24/2025 4:13 PM EDT): - Nonischemic cardiomyopathy. - Echo this admission showed EF 20%. - Continue Toprol and Farxiga. - Hold Entresto and spironolactone due to hypotension. - Right cath today. Assessment & Plan (04/23/2025 3:28 PM EDT): - Nonischemic cardiomyopathy. - Echo this admission showed EF 20%. - Continue Toprol and Farxiga. - Hold Entresto and spironolactone due to hypotension. Assessment & Plan (04/22/2025 8:13 PM EDT): - Nonischemic cardiomyopathy - Echo this admission showed EF 60%. - Hold Farxiga, Toprol, Entresto, spironolactone due to hypotension. Might resume tomorrow. Assessment & Plan (04/21/2025 4:54 PM EDT): - Nonischemic cardiomyopathy - Echo this admission showed EF 60%. - Hold Farxiga, Toprol, Entresto, spironolactone due to hypotension. Assessment & Plan (04/20/2025 12:20 PM EDT): - Nonischemic cardiomyopathy with recovery. - Echo this admission showed EF 60%. - Hold Farxiga, Toprol, Entresto, spironolactone due to hypotension. Assessment & Plan (04/19/2025 12:47 PM EDT): Nonischemic cardiomyopathy Last echo on 02/07 showed Global left ventricular systolic function is severely reduced. EF range is estimated at 25 % -30 %. Left ventricular wall thickness is increased. Diffuse global hypokinesis. Will continue farxiga. Holding remaining GDMT due to hypotension AICD present Will monitor intake and output as well as daily weight checks. Assessment & Plan (02/19/2023 1:06 PM EDT): No DFT since implantation RTC q 6 months of device interrogation and pt is due for interrogation this coming march Cardiomyopathy 09/01/2022 Overview (09/01/2022): Added automatically from request for surgery [id number] Assessment & Plan (05/03/2025 2:05 PM EDT): - Nonischemic cardiomyopathy. - Echo this admission showed EF 20%. - Continue Toprol and Farxiga. - Hold Entresto and spironolactone due to hypotension. - Right cath today. Assessment & Plan (04/24/2025 4:13 PM EDT): - Nonischemic cardiomyopathy. - Echo this admission showed EF 20%. - Continue Toprol and Farxiga. - Hold Entresto and spironolactone due to hypotension. - Right cath today. Assessment & Plan (04/23/2025 3:28 PM EDT): - Nonischemic cardiomyopathy. - Echo this admission showed EF 20%. - Continue Toprol and Farxiga. - Hold Entresto and spironolactone due to hypotension. Assessment & Plan (04/22/2025 8:13 PM EDT): - Nonischemic cardiomyopathy - Echo this admission showed EF 60%. - Hold Farxiga, Toprol, Entresto, spironolactone due to hypotension. Might resume tomorrow. Assessment & Plan (04/21/2025 4:54 PM EDT): - Nonischemic cardiomyopathy - Echo this admission showed EF 60%. - Hold Farxiga, Toprol, Entresto, spironolactone due to hypotension. Assessment & Plan (04/20/2025 12:20 PM EDT): - Nonischemic cardiomyopathy with recovery. - Echo this admission showed EF 60%. - Hold Farxiga, Toprol, Entresto, spironolactone due to hypotension. Assessment & Plan (04/19/2025 12:47 PM EDT): Nonischemic cardiomyopathy Last echo on 02/07 showed Global left ventricular systolic function is severely reduced. EF range is estimated at 25 % -30 %. Left ventricular wall thickness is increased. Diffuse global hypokinesis. Will continue farxiga. Holding remaining GDMT due to hypotension AICD present Will monitor intake and output as well as daily weight checks. Assessment & Plan (01/06/2024 11:58 AM EDT): Congestive heart failure remains stable Assessment & Plan (02/19/2023 1:06 PM EDT): As above Depressive disorder 08/31/2022 Dyslipidemia 08/31/2022 Assessment & Plan (02/19/2023 1:06 PM EDT): Continue statin Prediabetes 08/31/2022 Seasonal allergic rhinitis 08/31/2022 Steatosis of liver 08/31/2022 Vitamin D deficiency 08/31/2022 Coronary artery disease invo lving three affiliated coronary artery of three affiliated heart with angina pectoris 07/06/2022 Assessment & Plan (05/03/2025 12:13 PM EDT): - Nonobstructive. - Continue aspirin, Plavix, Lipitor. Assessment & Plan (04/24/2025 4:13 PM EDT): - Nonobstructive. - Continue aspirin, Plavix, Lipitor. Assessment & Plan (04/23/2025 3:28 PM EDT): - Nonobstructive. - Continue aspirin, Plavix, Lipitor. Assessment & Plan (04/22/2025 8:13 PM EDT): - Nonobstructive. - Continue aspirin, Plavix, Lipitor. Assessment & Plan (04/21/2025 8:20 AM EDT): - Nonobstructive. - Continue aspirin, Plavix, Lipitor. - Hold Toprol due to hypotension. Assessment & Plan (04/20/2025 12:20 PM EDT): - Nonobstructive. - Continue aspirin, Plavix, Lipitor. - Hold Toprol due to hypotension. Assessment & Plan (04/19/2025 12:47 PM EDT): Continue aspirin plavix and lipitor EKG is mostly unchanged from previous Troponins at outside hospital were downtrending from 11.5 to 10.5 Assessment & Plan (01/06/2024 12:03 PM EDT): [...] Assessment & Plan (01/06/2024 12:03 PM EDT): [place] II- currently EF improved from 25-30% to [...] malignant neoplasm of prostate 2021 Hypomagnesemia 07/03/2022 Primary hypertension 07/03/2022 Assessment & Plan (05/03/2025 12:13 PM EDT): - Continue Toprol, Farxiga and spironolactone. - Hold Entresto due to LINDA. Assessment & Plan (04/24/2025 4:13 PM EDT): - Continue Toprol. - Hold Entresto and spironolactone due to hypotension. Assessment & Plan (04/23/2025 3:28 PM EDT): - Continue Toprol. - Hold Entresto and spironolactone due to hypotension. Assessment & Plan (04/22/2025 8:13 PM EDT): - Hold Toprol, Entresto, spironolactone due to hypotension. Might resume tomorrow Assessment & Plan (04/21/2025 8:20 AM EDT): - Hold Toprol, Entresto, spironolactone due to hypotension. Assessment & Plan (04/20/2025 12:20 PM EDT): - Hold Toprol, Entresto, spironolactone due to hypotension. Assessment & Plan (04/19/2025 12:47 PM EDT): Patient states he has been hypotensive for two weeks Holding antihypertensives for now Will continue to monitor patients blood pressure Assessment & Plan (02/19/2023 1:06 PM EDT): [...] complexes he may no BiV ICD -continue [id number], entresto 24-, will add medications pending echo Syncope and collapse 07/02/2022 Overview (07/03/2022): Added automatically from request for surgery [id number] Uncomplicated asthma 07/29/2012 Assessment & Plan (05/03/2025 12:13 PM EDT): - Albuterol and switched from his Advair to our equivalent. Assessment & Plan (04/24/2025 4:13 PM EDT): - Albuterol and switched from his Advair to our equivalent. Assessment & Plan (04/23/2025 3:28 PM EDT): - Albuterol and switched from his Advair to our equivalent. Assessment & Plan (04/22/2025 8:13 PM EDT): - Albuterol and switched from his Advair to our equivalent. Assessment & Plan (04/21/2025 8:20 AM EDT): - Restarted patients albuterol and switched from his Advair to our equivalent. Assessment & Plan (04/20/2025 12:20 PM EDT): - Restarted patients albuterol and switched from his Advair to our equivalent. Assessment & Plan (04/19/2025 12:47 PM EDT): Restarted patients albuterol and switched from his Advair to our equivalent Mild persistent asthma without complication 07/19 Overview [...] Encounters Date Type Department Care Team Description 04/24/2025 3:00 PM EDT - 04/24/2025 4:00 PM EDT Surgery [facility] Heart [facility] [address] [place] [address] Hay William MD Right heart cath [[id number] (CPT )] 04/19/2025 2:45 PM EDT - 04/19/2025 5:15 PM EDT Surgery [facility] [address] [place] [address] Venu Samaniego MD Left heart cath 04/19/2025 10:46 AM EDT - 05/04/2025 4:33 PM EDT Hospital Encounter [facility] [address] [facility] [place] [address] Benedict Pascual MD Noori, Zaid, MD Moukarbel, George, MD Maqsood, Aadil, MD Yoon, Youngsook, MD Spencer, Caleb T, MD Chest pain (Primary Dx); Pericardial effusion; Right ventricular dysfunction; Paroxysmal atrial fibrillation (CMS/HCC); PVC (premature ventricular contraction); Chest pain, unspecified type; Heart failure with reduced ejection fraction (CMS/HCC); Generalized weakness; Other forms of angina pectoris; Hyponatremia; Hematoma of intravenous catheter site, sequela; Chronic systolic heart failure (CMS/HCC) [place]charge Disposition[place] [facility] [place] Travel 04/03/2025 10:20 AM EDT Office Visit [facility] [place] [address] [place] [address] Chuck Gutierrez CNP Paroxysmal atrial fibrillation (CMS/HCC) (Primary Dx); Presence of Watchman left atrial appendage closure device; Chronic systolic heart failure (CMS/HCC); Coronary artery disease involving three affiliated coronary artery of three affiliated heart without angina pectoris; ICD (implantable cardioverter-defibrill ator) in place; Nonischemic cardiomyopathy (CMS/HCC); Benign hypertensive heart disease with heart failure (CMS/HCC) 03/26/2025 2:34 PM EDT - 03/26/2025 11:59 PM EDT Hospital Encounter [facility] CT Imaging [address] [place] [address] Prediabetes (Primary Dx); Paroxysmal atrial fibrillation (CMS/HCC); Presence of Watchman left atrial appendage closure device Discharge Disposition: Home or Self Care () 03/23/2025 10:45 AM EDT Ancillary Procedure [facility] [address] [place] [address] Pre-operative cardiovascular examination, ICD in place 03/23/2025 Orders Only [facility] [address] [place] [id number] Dariel Wagoner MD 02/27/2025 Orders Only [address] [address] Mercedes Prado MA Chronic systolic heart failure (CMS/HCC) (Primary Dx) 02/26/2025 10:45 AM EDT Follow-Up [place] [address] [place] [address] Hay William MD Paroxysmal atrial fibrillation (CMS/HCC) (Primary Dx); Presence of Watchman left atrial appendage closure device; PAF (paroxysmal atrial fibrillation) (CMS/HCC); Chronic systolic heart failure (CMS/HCC); Coronary artery disease involving three affiliated coronary artery of three affiliated heart without angina pectoris; Primary hypertension; ICD (implantable cardioverter-defibrill ator) in place; Nonischemic cardiomyopathy (CMS/HCC); Ecchymosis 02/20/2025 2:00 PM EDT Ancillary Procedure [facility] [address] [place] [address] Pre-operative cardiovascular examination, ICD in place 02/20/2025 Orders Only [facility] [address] [place] [address] Mitesh Vernon MD 02/08/2025 Telephone [facility] [address] [place] [phone] Michelle Sanabria, SAL Hospital Follow-up 02/07/2025 Orders Only [facility] Cardiology [address] [place] [address] Chuck Gutierrez CNP Paroxysmal atrial fibrillation (CMS/HCC) (Primary Dx); Presence of Watchman left atrial appendage closure device 02/06/2025 8:00 AM EDT - 02/06/2025 10:00 AM EDT Surgery [facility] Vascular Lab [address] [place] [address] Hay William MD Left atrial appendage closure (transvenous) [73832 (CPT )] 02/06/2025 6:38 AM EDT - 02/07/2025 3:22 PM EDT Hospital Encounter [facility] [address] [place] [address] Hay William MD PAF (paroxysmal atrial fibrillation) (CMS/HCC) (Primary Dx); Paroxysmal atrial fibrillation (CMS/HCC); Presence of Watchman left atrial appendage closure device Discharge Disposition: Home or Self Care (01) 02/06/2025 Travel 02/05/2025 12:00 PM EDT Ancillary Procedure [facility] [address] [place] [address] Pre-operative cardiovascular examination, ICD in place 02/04/2025 Orders Only [facility] [address] [place] [address] Bobo Raymond MD from Last 3 Months Immunizations Immunization Administration Dates Next Due DTP 07/01/2022 Influenza, Unspecified 07/29/2012 Unspecified Sars-Cov-2 Vaccination 05/30/2021,,2020 Family History Medical History Relation Name Comments Emphysema Father Stroke Mother pacemaker Mother Relation Name Status Comments Father Mother Social History Tobacco Use Types Packs/Day Years Used Date Smoking Tobacco: Former Cigarettes Smokeless Tobacco: Never Tobacco Cessation:Counseling Given: Not Answered Alcohol Use Standard Drinks/Week Comments Yes 14 (1 standard drink = 0.6 oz pu re alcohol) occasional [facility] Utilities Answer Date Recorded In the past 12 months has th e electric, gas, oil, or water company threatened to shut off services in your [...] any time in the past 12 m [facility], were you homeless or living in a fci (including now)? No 04/19/2025 Hunger Vital Sign [...] Heterosexual or Straight 12/2024 8:51 AM EDT Last Filed Vital Signs Vital Sign Reading [...] Mass Index 28.45 04/19/2025 10:49 AM EDT Plan of Treatment Upcoming Encounters Date Type Department Care Team (Late st Contact Info) Description 05/14/2025 1:40 PM EDT Office Visit [facility] [address] [place] [address] Elliott Nettles, ACCOUNTS CLERK [address] [place] [address] Health Maintenance Due Date Last Done Comments CT Colonography 1955 Diabetes: Hemoglobin A1C 1955 FIT-DNA 1955 FIT 1955 FOBT 1955 Medicare Annual Wellness (AWV) 1955 Sigmoidoscopy 1955 Depression Screening 1967 Pneumococcal Vaccine: 50+ Years (1 of 2 - PCV) 09/19/1974 Adult Tetanus 09/19/1977 Zoster Vaccines (1 of 2) 09/19/2005 Colonoscopy 01/24/2018 01/25/2008 Colorectal Cancer Screening 01/24/2018 COVID-19 Vaccine ( season) 2025 05/30/2021, 05/30/2021, 10/11/2020, Additional history exists Influenza Vaccine (#1) 2025 07/29/2012 Fall Risk Screening 05/04/2026 05/04/2025 HIB Vaccines Aged Out No longer eligi [...] this topic Medical Devices Implanted Type Area Animal Doctor Device Identifier Shelf Expiration Date Model / Serial / Lot Patel Romano Df4-Dr - [id number] - [id number] Implanted:Qty : 1 on 09/04/2022 by Bobo Raymond MD at [facility] ICD [employer] [id number] 06/03/2024 [id number] / [id number] / [place] 4-Front S Active Fix Single Coil 59cm Implanted:Qty : 1 on 09/04/2022 by Bobo Raymond MD at [facility] Lead [employer] [id number] 07/28/2024 [id number] / [id number] / Ingevity+ Is-1 Bi Positive Fix Ra/Rv 52cm Implanted:Qty : 1 on 09/04/2022 by Bobo Raymond MD at [facility] Lead [employer] [id number] 08/18/2024 [id number] / [id number] / Closure,Watch man,Flxpro,35 mm - [id number] Implanted:Qty : 1 on 02/06/2025 by Hay William MD at [facility] Left Atrial Appendage Closure Left: Coronary [employer] [id number] 06/06/2027 [id number] / / [id number] Procedures Procedure Name Priority Date/Time Associated Diagnosis Comments BASIC METABOLIC PANEL Add-On 05/04/2025 4:18 AM EDT CBC WITH AUTO DIFFERENTIAL Routine 05/04/2025 4:18 AM EDT PHOSPHORUS Routine 05/04/2025 4:18 AM EDT MAGNESIUM Routine 05/04/2025 4:18 AM EDT CBC AND DIFFERENTIAL Routine 05/04/2025 4:18 AM EDT US NECK Routine 05/03/2025 3:56 PM EDT BODY FLUID CULTURE Routine 05/03/2025 12:59 PM EDT RESPIRATORY ASSESS AND TREAT PROTOCOL Routine 05/03/2025 8:00 AM EDT BASIC METABOLIC PANEL Add-On 05/03/2025 3:51 AM EDT CBC WITH AUTO DIFFERENTIAL Routine 05/03/2025 3:51 AM EDT PHOSPHORUS Routine 05/03/2025 3:51 AM EDT MAGNESIUM Routine 05/03/2025 3:51 AM EDT CBC AND DIFFERENTIAL Routine 05/03/2025 3:51 AM EDT RESPIRATORY ASSESS AND TREAT PROTOCOL Routine 05/02/2025 8:00 AM EDT CBC WITH AUTO DIFFERENTIAL Routine 05/02/2025 3:13 AM EDT PHOSPHORUS Routine 05/02/2025 3:13 AM EDT MAGNESIUM Routine 05/02/2025 3:13 AM EDT COMPREHENSIVE METABOLIC PANEL Routine 05/02/2025 3:13 AM EDT CBC AND DIFFERENTIAL Routine 05/02/2025 3:13 AM EDT PHOSPHORUS Timed 05/01/2025 8:30 AM EDT MAGNESIUM Timed 05/01/2025 8:30 AM EDT BASIC METABOLIC PANEL Timed 05/01/2025 8:30 AM EDT RESPIRATORY ASSESS AND TREAT PROTOCOL Routine 05/01/2025 8:00 AM EDT PHOSPHORUS Add-On 05/01/2025 3:05 AM EDT MAGNESIUM Add-On 05/01/2025 3:05 AM EDT CBC WITH AUTO DIFFERENTIAL Routine 05/01/2025 3:05 AM EDT COMPREHENSIVE METABOLIC PANEL Routine 05/01/2025 3:05 AM EDT CBC AND DIFFERENTIAL Routine 05/01/2025 3:05 AM EDT PHOSPHORUS Timed [...] DIFFERENTIAL Pending Discharge 04/30/2025 4:10 AM EDT COMPREHENSIVE METABOLIC PANEL Pending Discharge 04/30/2025 4:10 AM EDT CBC AND DIFFERENTIAL Routine 04/30/2025 4:10 AM EDT PHOSPHORUS Pending Discharge 04/30/2025 4:10 AM EDT MAGNESIUM Pending Discharge 04/30/2025 4:10 AM EDT PHOSPHORUS [...] 1 VIEW Routine 04/29/2025 11:20 AM EDT FERRITIN Add-On 04/29/2025 8:14 AM EDT IRON AND TIBC Add-On 04/29/2025 8:14 AM EDT PHOSPHORUS Pending Discharge 04/29/2025 8:14 AM EDT MAGNESIUM Pending Discharge 04/29/2025 8:14 AM EDT BASIC METABOLIC PANEL [...] PANEL Pending Discharge 04/29/2025 3:04 AM EDT COMPREHENSIVE METABOLIC PANEL Pending Discharge 04/29/2025 2:38 AM EDT AMMONIA Pending Discharge 04/29/2025 2:38 AM EDT CRRT THERAPY FLUID RESET Routine 04/29/2025 12:30 AM EDT PHOSPHORUS Pending Discharge 04/29/2025 12:22 AM EDT MAGNESIUM Pending Discharge 04/29/2025 12:22 AM EDT BASIC METABOLIC PANEL Pending Discharge 04/29/2025 12:22 AM EDT PHOSPHORUS Pending Discharge 04/28/2025 8:10 PM EDT MAGNESIUM Pending Discharge 04/28/2025 8:10 PM EDT BASIC METABOLIC PANEL Pending Discharge 04/28/2025 8:10 PM EDT PHOSPHORUS Pending Discharge 04/28/2025 3:57 PM EDT COMPREHENSIVE METABOLIC PANEL Pending Discharge 04/28/2025 3:57 PM EDT MAGNESIUM Pending Discharge 04/28/2025 3:57 PM EDT PHOSPHORUS [...] AM EDT CRRT THERAPY FLUID RESET Routine 04/28/2025 12:30 AM EDT PHOSPHORUS Timed 04/28/2025 12:06 AM EDT MAGNESIUM Timed 04/28/2025 12:06 AM EDT BASIC METABOLIC PANEL Timed 04/28/2025 12:06 AM EDT MAGNESIUM Add-On 04/27/2025 7:57 PM EDT HEMOGLOBIN AND HEMATOCRIT, BLOOD Routine 04/27/2025 7:57 PM EDT BASIC METABOLIC PANEL Routine 04/27/2025 7:57 PM EDT CRRT THERAPY FLUID RESET Routine 04/27/2025 6:18 PM EDT PHOSPHORUS Timed 04/27/2025 5:38 PM EDT MAGNESIUM Timed 04/27/2025 5:38 PM EDT BASIC METABOLIC PANEL Timed 04/27/2025 5:38 PM EDT POCT GLUCOSE METER UNSOLICITED RESULTS Routine 04/27/2025 5:14 PM EDT POCT GLUCOSE METER UNSOLICITED RESULTS Routine 04/27/2025 12:01 PM EDT POCT GLUCOSE METER UNSOLICITED RESULTS Routine 04/27/2025 10:07 AM EDT PHOSPHORUS Timed 04/27/2025 5:36 AM EDT MAGNESIUM Timed 04/27/2025 5:36 AM EDT BASIC METABOLIC PANEL Timed 04/27/2025 5:36 AM EDT CBC Routine 04/27/2025 5:36 AM EDT CO-OXIMETRY Routine 04/27/2025 4:25 AM EDT PHOSPHORUS Timed 04/26/2025 11:59 PM EDT MAGNESIUM Timed 04/26/2025 11:59 PM EDT BASIC METABOLIC PANEL Timed 04/26/2025 11:59 PM EDT PHOSPHORUS Timed 04/26/2025 4:24 PM EDT BASIC METABOLIC PANEL Timed 04/26/2025 4:24 PM EDT MAGNESIUM Timed 04/26/2025 4:24 PM EDT UREA NITROGEN, URINE Pending Discharge 04/26/2025 8:40 AM EDT SODIUM, URINE, RANDOM Pending Discharge 04/26/2025 8:40 AM EDT CREATININE, URINE, RANDOM Pending Discharge 04/26/2025 8:40 AM EDT URINALYSIS Pending Discharge 04/26/2025 8:40 AM EDT CBC Routine 04/26/2025 3:05 AM EDT MAGNESIUM Routine 04/26/2025 3:05 AM EDT BASIC METABOLIC PANEL Routine 04/26/2025 3:05 AM EDT PHOSPHORUS Routine 04/26/2025 3:05 AM EDT CO-OXIMETRY Routine 04/26/2025 2:39 AM EDT XR CHEST 1 VIEW STAT 04/25/2025 4:17 PM EDT BASIC METABOLIC PANEL Pending Discharge 04/25/2025 1:12 PM EDT PHOSPHORUS Pending Discharge 04/25/2025 3:22 AM EDT MAGNESIUM Pending Discharge 04/25/2025 3:22 AM EDT CBC Pending Discharge 04/25/2025 3:22 AM EDT BASIC METABOLIC PANEL Pending Discharge 04/25/2025 3:22 AM EDT SWAN (FLOW DIRECTED CATH) INSERTION Routine 04/24/2025 3:42 PM EDT Right ventricular dysfunction RIGHT HEART CATH Routine 04/24/2025 3:42 PM EDT Right ventricular dysfunction LIPID PANEL Add-On 04/24/2025 4:07 AM EDT MAGNESIUM Pending Discharge 04/24/2025 4:07 AM EDT CBC Pending Discharge 04/24/2025 4:07 AM EDT BASIC METABOLIC PANEL Pending Discharge 04/24/2025 4:07 AM EDT CTA CHEST W IV CONTRAST STAT 04/23/20 4:47 PM EDT LIMITED ECHOCARDIOGRAM (TTE) W/ LTD DOPPLER AND COLOR FLOW Routine 04/23/2025 7:56 AM EDT MAGNESIUM STAT 04/23/2025 5:02 AM EDT CBC WITH AUTO DIFFERENTIAL Pending Discharge 04/23/2025 5:02 AM EDT CBC AND DIFFERENTIAL Routine 04/23/2025 5:02 AM EDT COMPREHENSIVE METABOLIC PANEL STAT 04/23/2025 5:02 AM EDT C-REACTIVE PROTEIN Pending Discharge 04/23/2025 5:[address] CERVICAL SPINE [...] BLOOD CULTURE Routine 04/20/2025 10:09 AM EDT CORTISOL STAT Add-on 04/20/2025 5:15 AM EDT CBC Routine 04/20/2025 5:15 AM EDT BASIC METABOLIC PANEL Routine 04/20/2025 5:15 AM EDT SODIUM, URINE, RANDOM Routine 04/19/2025 8:28 PM EDT ECG 12-LEAD Routine 04/19/2025 6:35 PM EDT OSMOLALITY Routine 04/19/2025 6:26 PM EDT B-TYPE NATRIURETIC PEPTIDE Routine 04/19/2025 6:25 PM EDT LIMITED ECHO (TTE) Routine 04/19/2025 3:37 PM EDT PATHOLOGY REVIEW Routine 04/19/2025 3:23 PM EDT NON-NEON INSTALLER CYTOLOGY - CELLULAR EXAM Routine 04/19/2025 3:23 PM EDT BODY FLUID CELL DIFFERENTIAL Routine 04/19/2025 3:23 PM EDT BODY FLUID CELL COUNT WITH DIFFERENTIAL Routine 04/19/2025 3:23 PM EDT BODY FLUID CELL COUNT WITH DIFFERENTIAL Routine 04/19/2025 3:23 PM EDT ANAEROBIC CULTURE Routine 04/19/2025 3:23 PM EDT BODY FLUID CULTURE Routine 04/19/2025 3:23 PM EDT BODY FLUID CULTURE AND ANAEROBIC CULTURE Routine 04/19/2025 3:23 PM EDT PERICARDIOCENTESIS Routine 04/19/2025 3:22 PM EDT Pericardial effusion RIGHT HEART CATH Routine 04/19/2025 3:22 PM EDT Pericardial effusion LEFT HEART CATH Routine 04/19/2025 3:22 PM EDT Pericardial effusion POCT HBO2% Routine 04/19/2025 2:47 PM EDT POCT HBO2% Routine 04/19/2025 2:47 PM EDT LIGHT GREEN TOP Routine 04/19/2025 2:44 PM EDT COLLIN Routine 04/19/2025 2:44 PM EDT C-REACTIVE PROTEIN Routine 04/19/2025 2:44 PM EDT LAVENDER TOP Routine 04/19/2025 2:32 PM EDT EXTRA TUBES Routine 04/19/2025 2:32 PM EDT COMPLETE ECHO (TTE) Routine 04/19/2025 1:13 PM EDT SEDIMENTATION RATE Add-On 04/19/2025 12:14 PM EDT HIGH SENSITIVITY TROPONIN I Add-On 04/19/2025 12:14 PM EDT COMPREHENSIVE METABOLIC PANEL Routine 04/19/2025 12:14 PM EDT CBC Routine 04/19/2025 12:14 PM EDT ECG 12-LEAD Routine 04/19/2025 12:09 PM EDT CTA CHEST W IV CONTRAST Routine 03/26/20 25 5:07 PM EDT Paroxysmal atrial fibrillation (CMS/HCC) Presence of Watchman left atrial appendage closure device CREATININE, SERUM Routine 03/26/2025 2:43 PM EDT Prediabetes CBC Routine 03/26/2025 2:43 PM EDT Paroxysmal atrial fibrillation (CMS/HCC) BASIC METABOLIC PANEL Routine 03/26/2025 2:43 PM EDT Paroxysmal atrial fibrillation (CMS/HCC) CARDIAC DEVICE CHECK CHECK - REMOTE Routine 03/26/2025 11:56 AM EDT Pre-operative cardiovascular examination, ICD in place CARDIAC DEVICE CHECK - REMOTE - ICD Routine 03/23/2025 12:00 AM EDT CARDIAC DEVICE CHECK CHECK - REMOTE Routine 02/28/2025 3:36 PM EDT Pre-operative cardiovascular examination, ICD in place CARDIAC DEVICE CHECK - REMOTE - ICD Routine 02/20/2025 12:00 AM EDT CARDIAC DEVICE CHECK CHECK - REMOTE Routine 02/15/2025 11:52 AM EDT Pre-operative cardiovascular examination, ICD in place CARDIAC DEVICE CHECK CHECK - REMOTE Routine 02/07/2025 4:35 PM EDT Pre-operative cardiovascular examination, ICD in place POTASSIUM STAT 02/07/2025 12:19 PM EDT LIMITED ECHO (TTE) W/ COLOR FLOW AND IMAGING AGENT Routine 02/07/2025 8:23 AM EDT CBC Pending Discharge 02/07/2025 4:48 AM EDT BASIC METABOLIC PANEL Pending Discharge 02/07/2025 4:48 AM EDT ACTIVATED CLOTTING TIME Routine 02/07/20 7:07 PM EDT ACTIVATED CLOTTING TIME Routine 02/07/20 7:07 PM EDT LEFT ATRIAL APPENDAGE CLOSURE (TRANSVENOUS) Routine 02/06/2025 1:05 PM EDT Paroxysmal atrial fibrillation (CMS/HCC) ECG 12-LEAD Routine 02/06/2025 8:24 AM EDT TYPE AND SCREEN Routine 02/06/2025 7:46 AM EDT CARDIAC DEVICE CHECK - REMOTE ALERT - ICD Routine 02/04/2025 12:00 AM EDT from Last 3 Months Results * (ABNORMAL) CBC auto differential (05/04/2025 4:18 AM EDT) Only the most recent of7 resultswithin the time period is included. Auto WBC 6.04 4.00 - 10.60 10*3/uL 05/04/2025 5:15 AM EDT [facility] ([facility]) RBC 3.10(L) 4.20 - 5.70 10*6/uL 05/04/2025 5:15 AM EDT [facility] ([facility]) Hemoglobin 9.8(L) 13.0 - 17.0 g/dL 05/04/2025 5:15 AM EDT [facility] ([facility]) Hematocrit 28.3(L) 39.0 - 50.0 % 05/04/2025 5:15 AM EDT [facility] ([facility]) MCV 91.3 82.0 - 98.0 fL 05/04/2025 5:15 AM EDT [facility] ([facility]) MCH 31.6 27.0 - 33.0 pg 05/04/2025 5:15 AM EDT [facility] ([facility]) MCHC 34.6 32.0 - 35.0 g/dL 05/04/2025 5:15 AM EDT [facility] ([facility]) RDW 14.7 11.5 - 15.0 % 05/04/2025 5:15 AM EDT [facility] ([facility]) Neutrophils % 70.4 40.0 - 72.0 % 05/04/2025 5:15 AM EDT [facility] ([facility]) Lymphocytes % 14.2(L) 20.0 - 45.0 % 05/04/2025 5:15 AM EDT [facility] ([facility]) Monocytes % 14.2(H) 5.0 - 12.0 % 05/04/2025 5:15 AM EDT [facility] ([facility]) Eosinophils % 0.5 0.0 - 6.0 % 05/04/2025 5:15 AM EDT [facility] ([facility]) Basophils % 0.2 0.0 - 1.0 % 05/04/2025 5:15 AM EDT [facility] ([facility]) Neutrophils Absolute 4.25 1.60 - 7.60 10*3/uL 05/04/2025 5:15 AM EDT [facility] ([facility]) Lymphocytes Absolute 0.86(L) 1.20 - 4.00 10*3/uL 05/04/2025 5:15 AM EDT [facility] ([facility]) Monocytes Absolute 0.86 0.10 - 1.00 10*3/uL 05/04/2025 5:15 AM EDT [facility] ([facility]) Eosinophils Absolute 0.03 0.00 - 0.50 10*3/uL 05/04/2025 5:15 AM EDT [facility] ([facility]) Basophils Absolute 0.01 0.00 - 0.20 10*3/uL 05/04/2025 5:15 AM EDT [facility] ([facility]) Platelets 192 150 - 400 10*3/uL 05/04/2025 5:15 AM EDT [facility] ([facility]) nRBC % 0.0 0 % 05/04/2025 5:15 AM EDT [facility] ([facility]) Immature Granulocytes % 0.5 0.0 - 1.0 % 05/04/2025 5:15 AM EDT [facility] ([facility]) Immature Granulocytes Absolute 0.03 0.00 - 0.20 10*3/uL 05/04/2025 5:15 AM EDT [facility] ([facility]) Blood Venous blood specimen / Unknown Venipuncture / Unknown 05/04/2025 4:18 AM EDT 05/04/2025 4:48 AM EDT us Pepe Raj KLEIN LAB BLOOD ORDERABLES Final Resu lt [facility]) [address], [place] [id number] * Phosphorus (05/04/2025 4:18 AM EDT) Only the most recent of30 resultswithin the time period is included. Phosphorus 3.1 2.5 - 5.0 mg/dL 05/04/2025 5:12 AM EDT [facility]) Blood Venous blood specimen / Unknown Venipuncture / Unknown 05/04/2025 4:18 AM EDT 05/04/2025 4:46 AM EDT us Dg Power MD LAB BLOOD ORDERABLES Final Res ult [facility]) [address] [place] [address] * Magnesium (05/04/2025 4:18 AM EDT) Only the most recent of33 resultswithin the time period is included. Magnesium 2.0 1.9 - 2.7 mg/dL 05/04/2025 5:[address] [facility]) Blood Venous blood specimen / Unknown Venipuncture / Unknown 05/04/2025 4:18 AM EDT 05/04/2025 4:46 AM EDT us Dg Power MD LAB BLOOD ORDERABLES Final Res ult [facility]) [address], [place] [id number] * (ABNORMAL) Basic metabolic panel (05/04/2025 4:18 AM EDT) Only the most recent of32 resultswithin the time period is included. Sodium 128(L) 136 - 145 mmol/L 05/04/2025 9:10 AM EDT [facility]) Potassium 3.7 3.5 - 5.1 mmol/L 05/04/2025 9:10 AM EDT [facility] ([facility]) Chloride 94(L) 98 - 107 mmol/L 05/04/2025 9:10 AM EDT [facility] ([facility]) CO2 23 21 - 31 mmol/L 05/04/2025 9:10 AM EDT [facility] ([facility]) BUN 25 7 - 25 mg/dL 05/04/2025 9:10 AM EDT [facility] ([facility]) Creatinine 1.58(H) 0.70 - 1.30 mg/dL 05/04/2025 9:10 AM EDT [facility] ([facility]) Glucose 81 70 - 100 mg/dL 05/04/2025 9:10 AM T [facility] ([facility]) Calcium 7.3(L) 8.6 - 10.3 mg/dL 05/04/2025 9:10 AM T [facility] ([facility]) Anion Gap 15 7 - 20 mmol/L 05/04/2025 9:10 AM T [facility] ([facility]) eGFR 47.1(L) >60.0 mL/min/1. 73m*2 05/04/2025 9:10 AM T [facility] ([facility]) Comment:[facility] s estimated glomerular filtration rate (eGFR) [...] individuals. BUN/Creatinine Ratio 15.8 04/18 9:10 AM T [facility] ([facility]) Blood Venous blood specimen / Unknown Venipuncture / Unknown 05/04/2025 4:18 AM EDT 05/04/2025 4:46 AM EDT Benedict Pascual MD LAB BLOOD ORDERABLES Final Resul t [facility] ([facility]) [address] [place] [address] * US neck (05/03/2025 3:56 PM EDT) [...] Body fluid culture (05/03/2025 12:59 PM EDT) Only the most recent of2 resultswithin the time period is included. Culture Light Growth Staphylococcus lugdunensis(A) FLORA 05/05/2025 7:07 AM EDT [facility] ([facility]) Comment: Gram Stain Result Moderate Polymorphonuclear leukocytes 05/05/2025 7:07 AM EDT [facility] ([facility]) Gram Stain Result No organisms seen 05/05/2025 7:07 AM EDT [facility] ([facility]) Fluid Neck structure / Unknown Non-blood Collection / Unknown 05/03/2025 12:59 PM EDT 05/03/2025 1:20 PM EDT Narrative [facility] ([facility]) - 05/05/2025 7:07 AM EDT Rare Growth Skin Darlyn Organism Antibiotic Method Susceptibility Staphylococcus lugdunensis Clindamycin FLORA <=0.5 ug/ml: Susceptible Staphylococcus lugdunensis Oxacillin FLORA <=0.25 ug/ml: Susceptible Staphylococcus lugdunensis Tetracycline FLORA <=0.5 ug/ml: Susceptible Staphylococcus lugdunensis Vancomycin FLORA <=0.5 ug/ml: Susceptible Benedict Pascual MD LAB MICROBIOLOGY - GENERAL ORDER JAY Final Result [facility] ([facility]) [address] [place] [address] * (ABNORMAL) Comprehensive metabolic panel (05/02/2025 3:13 AM EDT) Only the most recent of7 resultswithin the time period is included. Sodium 133(L) 136 - 145 mmol/L 05/02/2025 4:00 AM EDT [facility] ([facility]) Potassium 3.1(L) 3.5 - 5.1 mmol/L 05/02/2025 4:00 AM EDT [facility] ([facility]) Chloride 93(L) 98 - 107 mmol/L 05/02/2025 4:00 AM EDT [facility] ([facility]) CO2 33(H) 21 - 31 mmol/L 05/02/2025 4:00 AM EDT [facility] ([facility]) Anion Gap 10 7 - 20 mmol/L 05/02/2025 4:00 AM EDT [facility] ([facility]) BUN 20 7 - 25 mg/dL 05/02/2025 4:00 AM EDT [facility] ([facility]) Creatinine 1.69(H) 0.70 - 1.30 mg/dL 05/02/2025 4:00 AM EDT [facility] ([facility]) BUN/Creatinine Ratio 11.8 04/18 4:00 AM EDT [facility] ([facility]) Glucose 105(H) 70 - 100 mg/dL 05/02/2025 4:00 AM EDT [facility] ([facility]) Calcium 7.3(L) 8.6 - 10.3 mg/dL 05/02/2025 4:00 AM EDT [facility] ([facility]) AST 54(H) 13 - 39 U/L 05/02/2025 4:00 AM EDT [facility] ([facility]) ALT (SGPT) 129(H) 7 - 52 U/L 05/02/2025 4:00 AM EDT [facility] ([facility]) Alkaline Phosphatase 60 34 - 104 U/L 05/02/2025 4:00 AM EDT [facility] ([facility]) Total Protein 5.4(L) 6.0 - 8.3 g/dL 05/02/2025 4:00 AM EDT [facility] ([facility]) Albumin 3.1(L) 3.5 - 5.7 g/dL 05/02/2025 4:00 AM EDT [facility] ([facility]) Total Bilirubin 0.7 0.3 - 1.0 mg/dL 05/02/2025 4:00 AM T [facility] ([facility]) eGFR 43.4(L) >60.0 mL/min/1. 73m*2 05/02/2025 4:00 AM T [facility] ([facility]) Comment:The [facility] s estimated glomerular filtration rate (eGFR) [...] MD LAB BLOOD ORDERABLES Final Resu lt [facility] ([facility]) [address] [place] [address] * LIMITED ECHOCARDIOGRAM (TTE) W/ LTD DOPPLER AND COLOR FLOW (04/30/2025 8:35 AM EDT) Anatomical Region Laterality Modality Other 04/30/2025 7:02 AM EDT Narrative 04/30/2025 11:22 AM EDT 1 [facility] Heart Station [address] [place] [address] [phone] (fax) Echocardiogram-[facility] Name: KRISTY DOHERTY Study Date: 04/30/2025 07:02 AM B/P: 121 mmHg/100 mmHg HR: 87 bpm Date of : 1955 Location: [facility] Height: 68 in. Age: 69 year(s) [...] with the fellow Procedure Staff Reading Group: [facility] Referring Physician: RUDY KING Law Reporter: June Brumfield RDCS, RVT, RN, BSN Ordering Physician: Wil Sotomayor MD Wall Motion Scores -1 - hyperkinesia, 0 - not evaluated, 1 - normal, 2 - hypokinesia, 3 - akinesia, 4 - dyskinesia Procedure Note Hay William MD - 04/30/2025 1 1 [facility] Heart Station [address] [place] [address] [phone] (fax) Echocardiogram-[facility] Name: KRISTY DOHERTY Study Date: 04/30/2025 07:02 AM B/P: 121 mmHg/100 mmHg HR: 87 bpm Date of : 1955 Location: [facility] Height: 68 in. Age: 69 year(s) [...] with the fellow Procedure Staff Reading Group: [facility] Referring Physician: RUDY KING Law Reporter: June Brumfield RDCS, RVT, RN, BSN Ordering Physician: Wil Sotomayor MD Wall Motion Scores -1 - hyperkinesia, 0 - not evaluated, 1 - normal, 2 - hypokinesia, 3 - akinesia, 4 - dyskinesia us Wil Sotomayor MD CV ECHO PROCEDURES Final Result * (ABNORMAL) Blood Gas, Venous (04/29/2025 3:38 PM EDT) pH, Ed 7.43(H) 7.31 - 7.41 04/29/2025 3:56 PM EDT [facility] RESPIRATORY THERAPY pCO2, Ed 48 40 - 50 mmHg 04/29/2025 3:56 PM EDT [facility] RESPIRATORY THERAPY pO2, Ed 35 35 - 45 mmHg 04/29/2025 3:56 PM EDT [facility] RESPIRATORY [facility] O2 Sat, Ed 56.1(L) 65.0 - 75.0 % 04/29/2025 3:56 PM EDT [facility] RESPIRATORY THERAPY HCO3, Venous 31.9 mmol/L 04/29/2025 3:56 PM EDT [facility] RESPIRATORY THERAPY Oxyhemoglobin, Venous 55.6 % 04/29/2025 3:56 PM EDT [facility] RESPIRATORY THERAPY pH Venous Temp Adjusted 7.43(H) 7.31 - 7.41 04/29/2025 3:56 PM EDT [facility] RESPIRATORY THERAPY pCO2 Venous Temp Adjusted 48 40 - 50 mmHg 04/29/2025 3:56 PM EDT [facility] RESPIRATORY THERAPY pO2 Venous Temp Adjusted 35 35 - 45 mmHg 04/29/2025 3:56 PM EDT [facility] RESPIRATORY THERAPY Temperature 37.0 C 04/29/2025 3:56 PM EDT [facility] RESPIRATORY THERAPY Blood Venous blood specimen / Unknown Existing Catheter / Unknown 04/29/2025 3:38 PM EDT 04/29/2025 3:51 PM EDT us Pepe Anthony MD LAB BLOOD ORDERABLES Final Resu lt [facility] RESPIRATORY THERAPY [address] [place] [address], [place] * XR chest 1 view (04/29/2025 11:20 AM EDT) Only the most recent of2 resultswithin the time period is included. Anatomical Region Laterality Modality Chest Computed Radiogr [...] IMG XR PROCEDURES Final Result * (ABNORMAL) Iron and TIBC (04/29/2025 8:14 AM EDT) Iron 33(L) 50 - 212 ug/dL 04/29/2025 10:43 AM EDT [facility] ([facility]) TIBC 214(L) 250 - 450 ug/dL 04/29/2025 10:43 AM EDT [facility] ([facility]) Iron Saturation 15(L) 20 - 50 % 10:43 AM EDT [facility] ([facility]) UIBC 181.0 155.0 - 355.0 ug/dL 04/29/2025 10:43 AM EDT [facility] ([facility]) Blood Venous blood specimen / Unknown Existing Catheter / Unknown 04/29/2025 8:14 AM EDT 04/29/2025 8:19 AM EDT us Pepe Anthony MD LAB BLOOD ORDERABLES Final Resu lt Performing Organization Address [facility] Co de Phone Number [facility]) [address] [place] [address] * (ABNORMAL) Ferritin (04/29/2025 8:14 AM EDT) Ferritin 1,265.0(H) 24.0 - 336.0 ng/mL 04/29/2025 11:02 AM EDT [facility] ([facility]) Blood Venous blood specimen / Unknown Existing Catheter / Unknown 04/29/2025 8:14 AM EDT 04/29/2025 8:19 AM EDT us Pepe Anthony MD LAB BLOOD ORDERABLES Final Resu lt Performing Organization Address [facility] Co de Phone Number [facility]) [address] [place] [address] * Ammonia (04/29/2025 2:38 AM EDT) Ammonia 56 18 - 72 umol/L 04/29/2025 3:[address] [facility]) Blood Venous blood specimen / Unknown Arterial Line / Unknown 04/29/2025 2:38 AM EDT 04/29/2025 2:44 AM EDT us Pepe Anthony MD LAB BLOOD ORDERABLES Final Resu lt Performing Organization Address City/[facility] Co de Phone Number [facility]) [address] [place] [address] * POCT glucose meter (04/28/2025 1:44 PM EDT) Only the most recent of4 resultswithin the time period is included. Glucose POC 88 70 - 105 mg/dL 04/28/2025 1:[address] [facility]) Comment:[email or web address] Blood Capillary blood specimen / Unknown 04/28/2025 1:44 PM EDT 04/28/2025 1:56 PM EDT Narrative [facility] ([facility]) - 04/28/2025 1:56 PM EDT Waived Testing in the ED is performed under the ED CLIA certificate #[id number]. us Pepe Anthony MD LAB BLOOD ORDERABLES Final Resu lt [facility] ([facility]) [address] [place] [address] * (ABNORMAL) Arterial Blood Gases (04/28/2025 8:54 AM EDT) pH, Arterial 7.36 7.35 - 7.45 04/28/2025 8:54 AM EDT [facility] RESPIRATORY THERAPY pCO2, Arterial 30(L) 35 - 45 mmHg 04/28/2025 8:54 AM EDT [facility] RESPIRATORY THERAPY pO2, Arterial 86 83 - 108 mmHg 04/28/2025 8:54 AM EDT [facility] RESPIRATORY THERAPY HCO3, Arterial 16.9(L) 21.0 - 28.0 mmol/L 04/28/2025 8:54 AM EDT [facility] RESPIRATORY THERAPY O2 Sat, Arterial 98.1 94.0 - 100.0 % 04/28/2025 8:54 AM EDT [facility] RESPIRATORY THERAPY Base Excess, Arterial -7.3(L) -2.0 - 3.0 mmol/L 04/28/2025 8:54 AM EDT [facility] RESPIRATORY THERAPY Oxyhemoglobin, Arterial 96.2 94.0 - 97.0 % 04/28/2025 8:54 AM EDT [facility] RESPIRATORY THERAPY Temperature 37.0 C 04/28/2025 8:54 AM EDT [facility] RESPIRATORY THERAPY Oxygen Device #1 Cannula 04/28/20 8:54 AM EDT [facility] RESPIRATORY THERAPY LPM 4.0 LPM 04/28/2025 8:54 AM EDT [facility] RESPIRATORY THERAPY PF Ratio 04/28/2025 8:54 AM EDT [facility] RESPIRATORY THERAPY Comment:C^Incalculable A-aDo2 04/28/2025 8:54 AM EDT [facility] RESPIRATORY THERAPY Comment:C^Incalculable paO2/pAO2 04/28/2025 8:54 AM EDT [facility] RESPIRATORY THERAPY Comment:C^Incalculable Blood Arterial blood specimen / Unknown 04/28/2025 8:54 AM EDT 04/28/2025 8:54 AM EDT us Pepe Anthony MD LAB BLOOD ORDERABLES Final Resu lt [facility] RESPIRATORY THERAPY [address] [place] [address], [place] * (ABNORMAL) CBC (04/28/2025 3:21 AM EDT) Only the most recent of9 resultswithin the time period is included. Auto WBC 19.72(H) 4.00 - 10.60 10*3/uL 04/28/2025 4:06 AM EDT [facility] ([facility]) RBC 2.90(L) 4.20 - 5.70 10*6/uL 04/28/2025 4:06 AM EDT [facility] ([facility]) Hemoglobin 9.4(L) 13.0 - 17.0 g/dL 04/28/2025 4:06 AM EDT [facility] ([facility]) Hematocrit 27.2(L) 39.0 - 50.0 % 04/28/2025 4:06 AM EDT [facility] ([facility]) MCV 93.8 82.0 - 98.0 fL 04/28/2025 4:06 AM EDT [facility] ([facility]) MCH 32.4 27.0 - 33.0 pg 04/28/2025 4:06 AM EDT [facility] ([facility]) MCHC 34.6 32.0 - 35.0 g/dL 04/28/2025 4:06 AM EDT [facility] ([facility]) RDW 14.3 11.5 - 15.0 % 04/28/2025 4:06 AM EDT [facility] ([facility]) Platelets 163 150 - 400 10*3/uL 04/28/2025 4:06 AM EDT [facility] ([facility]) Blood Venous blood specimen / Unknown Arterial Line / Unknown 04/28/2025 3:21 AM EDT 04/28/2025 3:41 AM EDT us Pepe Anthony MD LAB BLOOD ORDERABLES Final Resu lt [facility] ([facility]) [address] [place] [address] * XR abdomen 1 view (04/28/2025 12:50 [...] with the findingsin this report. Electronically signed: lE Gomes. us Pepe Anthony MD IMG XR PROCEDURES Final Result * (ABNORMAL) Hemoglobin and hematocrit, blood (04/27/2025 7:57 PM EDT) Hemoglobin 10.6(L) 13.0 - 17.0 g/dL 04/27/2025 8:28 PM EDT [facility] ([facility]) Hematocrit 30.2(L) 39.0 - 50.0 % 04/27/2025 8:28 PM EDT [facility] ([facility]) Blood Venous blood specimen / Unknown Arterial Line / Unknown 04/27/2025 7:57 PM EDT 04/27/2025 8:10 PM EDT us Pepe Anthony MD LAB BLOOD ORDERABLES Final Resu lt Performing Organization Address City/[facility] Co de Phone Number [facility] ([facility]) [address], [place] [id number] * Co-oximetry (04/27/2025 4:25 AM EDT) Only the most recent of2 resultswithin the time period is included. Oxyhemoglobin 36.0 % 04/27/2025 4:31 AM EDT [facility] RESPIRATORY THERAPY Total Hemoglobin 11.5 g/dL 04/27/20 4:31 AM EDT [facility] RESPIRATORY THERAPY O2 Sat 36.4 % 04/27/2025 4:31 AM EDT [facility] RESPIRATORY THERAPY Blood Mixed venous blood specimen / Unknown Arterial Line / Unknown 04/27/2025 4:25 AM EDT 04/27/2025 4:25 AM EDT us Pepe Anthony MD LAB BLOOD ORDERABLES Final Resu lt Performing Organization Address City/[facility]/ZIP Co de Phone Number [facility] RESPIRATORY THERAPY [address] [place] [address], [place] * Urea nitrogen, urine (04/26/2025 8:40 AM EDT) Urea Nitrogen, Ur 237 mg/dL 04/26/2025 9:11 AM EDT [facility] ([facility]) Urine Urine specimen obtained by clean catch procedure / Unknown Non-blood Collection / Unknown 04/26/2025 8:40 AM EDT 04/26/2025 8:52 AM EDT us Pepe Anthony MD LAB URINE ORDERABLES Final Resu lt Performing Organization Address City/[facility]/ZIP Co de Phone Number [facility]) [address] [place] [address] * Sodium, urine, random (04/26/2025 8:40 AM EDT) Only the most recent of2 resultswithin the time period is included. Sodium, Ur 92 mmol/L 04/26/2025 9:11 AM EDT [facility] ([facility]) Urine Urine specimen obtained by clean catch procedure / Unknown Non-blood Collection / Unknown 04/26/2025 8:40 AM EDT 04/26/2025 8:52 AM EDT us Pepe Anthony MD LAB URINE ORDERABLES Final Resu lt Performing Organization Address [facility] de Phone Number [facility]) [address] [place] [address] * Creatinine, urine, random (04/26/2025 8:40 AM EDT) Creatinine, Ur 83.0 26 - 299 mg/dL 04/26/2025 9:11 AM EDT [facility] ([facility]) Urine Urine specimen obtained by clean catch procedure / Unknown Non-blood Collection / Unknown 04/26/2025 8:40 AM EDT 04/26/2025 8:52 AM EDT us Pepe Anthony MD LAB URINE ORDERABLES Final Resu lt Performing Organization Address City/[facility]/ZIP Co de Phone Number [facility] ([facility]) [address] [place] [address] * (ABNORMAL) Urinalysis (04/26/2025 8:40 AM EDT) Color, Urine Light-Yellow Colorless, Yellow, Light-Yellow 04/26/2025 9:27 AM EDT [facility] ([facility]) Clarity, Urine Clear Clear 04/26/2025 9:27 AM T [facility] ([facility]) pH, Urine 5.0 5.0 - 8.0 pH 04/26/2025 9:27 AM T [facility] ([facility]) Leukocytes, Urine Negative Negative 04/26/2025 9:27 AM EDT [facility] ([facility]) Nitrite, Urine Negative Negative 04/26/2025 9:27 AM EDT [facility] ([facility]) Protein, Urine Negative Negative mg/dL 04/26/2025 9:27 AM T [facility] ([facility]) Glucose, Urine 250(A) Normal mg/dL 04/26/2025 9:27 AM T [facility] ([facility]) Bilirubin, Urine Negative Negative 04/26/2025 9:27 AM T [facility] ([facility]) Specific [place], Urine 1.013 1.010 - 1.030 04/26/2025 9:27 AM T [facility] ([facility]) Ketones, Urine Negative Negative mg/dL 04/26/2025 9:27 AM T [facility] ([facility]) Blood, Urine Negative Negative 04/26/2025 9:27 AM [facility] ([facility]) Urobilinogen, Urine Normal Normal mg/dL 04/26/2025 9:27 AM T [facility] ([facility]) Urine Urine specimen obtained by clean catch procedure / Unknown Non-blood Collection / Unknown 04/26/2025 8:40 AM EDT 04/26/2025 8:52 AM EDT Narrative [facility] ([facility]) - 04/26/2025 9:27 AM EDT Microscopics not performed on urines with negative chemical reactions unless requested on original order. us Pepe Raj KLEIN LAB URINE ORDERABLES Final Resu lt [facility] ([facility]) [address] [place] [address] * RIGHT HEART CATH, SWAN (FLOW DIRECTED [...] Performed: Right heart catheterization. Placement of a [employer] [place]acy catheter for hemodynamic monitoring. Access into the right internal jugular vein under ultrasound guidance. Methods: Procedure was explained to the patient with risks and benefits; he signed informed consent. he was brought to the lab manager in a fasting state. The right neck area was prepped and draped in usual fashion. Micropuncture technique was used for access under ultrasound guidance into the right internal jugular vein. A 6-Haitian x 11 cm sheath was placed. A 6-Haitian Carrasquillo catheter was used for right heart catheterization and measurement of pressures and calculation of cardiac output using the estimated [place] method. Carrasquillo catheter was removed. Over a wire to the access sheath was upsized to a 9 Haitian introducer sheath. A [employer] [place] catheter was advanced with the aid of a V18 wire and the distal end of the catheter was advanced to the distal segment of the right pulmonary artery. The [place] catheter was secured in place. he tolerated [...] with biventricular failure. Successful placement of a [employer] [place] catheter to guide management of heart failure. Plan: Patient will be started on intravenous inotropic therapy. Further recommendations per inpatient Cardiology service. Hay William MD Study Details Other hypotension [I95.89], Right ventricular dysfunction [I51.9] us Elliott Nettles CNP CV CARDIAC CATH PROCEDURES Final Result * (ABNORMAL) Lipid panel (04/24/2025 4:07 AM EDT) Triglycerides 75 <150 mg/dL 04/24/2025 2:39 PM EDT [facility] ([facility]) Comment: TRIGLYCERIDE REFERENCE RANGE: 20 YEARS AND OLDER CARDIOVASCULAR RISK LESS THAN 150 mg/dL LOW RISK 150 TO 199 mg/dL BORDERLINE RISK 200 mg/dL AND GREATER HIGH RISK Cholesterol 98(L) 120 - 200 mg/dL 04/24/2025 2:39 PM EDT [facility] ([facility]) LDL Calculated 54 0 - 160 mg/dL 04/24/2025 2:39 PM EDT [facility] ([facility]) HDL 29 23 - 92 mg/dL 04/24/2025 2:39 PM EDT [facility] ([facility]) Non HDL Cholesterol 69 04/24/2025 2:39 PM EDT [facility] ([facility]) Total VLDL-C 15 0 - 40 mg/dL 04/24/2025 2:39 PM EDT [facility] ([facility]) Cholesterol/HDL Ratio 3.4 mg/dL 04/24/2025 2:39 PM EDT [facility] ([facility]) Blood Venous blood specimen / Unknown Venipuncture / Unknown 04/24/2025 4:07 AM EDT 04/24/2025 4:17 AM EDT us Bebo Dominguez MD LAB BLOOD ORDERABLES Final Resul t [facility] ([facility]) [address] [place] [address] * CTA Chest W IV Contrast (04/23/2025 4:47 PM EDT) Only the most recent of2 resultswithin the time period is included. Anatomical Region Laterality Modality Body, Chest Computed Tomogra phy 04/23/2025 5:24 PM EDT Impressions 04/23/2025 5:57 PM EDT * No central pulmonary embolus. * Small bilateral pleural effusions. * Enlarged main pulmonary artery suggestive of pulmonary arterial hypertension. Reflux of contrast into the suprahepatic IVC suggestive of right heart dysfunction. Approved by:Benedict Gadon04/23/2025 5:40 PM. IHowie,have reviewed the image(s) and [...] Narrative 04/23/2025 9:27 AM EDT 1 [facility] Heart Station [address] [place] [address] [phone] (fax) Echocardiogram-[facility] Name: KRISTY DOHERTY Study Date: 04/23/2025 07:26 AM B/P: 90 mmHg/74 mmHg HR: 111 bpm Date of : 1955 Location: [facility] Height: 68 in. Age: 69 year(s) Patient Room: [facility] Weight: 177 lb. Gender: Male Patient Status: [...] minimal pericardial effusion. Procedure Staff Reading Group: [facility] Referring Physician: RUDY KING Law Reporter: June Brumfield RDCS, RVT, RN, BSN Ordering Physician: FANI DENNEY Wall Motion Scores -1 - hyperkinesia, 0 - not evaluated, 1 - normal, 2 - hypokinesia, 3 - akinesia, 4 - dyskinesia Procedure Note Mitesh Vernon MD - 04/23/2025 1 1 [facility] Heart Station [address] [facility] [place] [address] [phone] (fax) Echocardiogram-[facility] Name: KRISTY DOHERTY Study Date: 04/23/2025 07:26 AM B/P: 90 mmHg/74 mmHg HR: 111 bpm Date of : 1955 Location: [facility] Height: 68 in. Age: 69 year(s) Patient Room: 9943 Weight: 177 lb. Gender: Male Patient Status: [...] minimal pericardial effusion. Procedure Staff Reading Group: [facility] Referring Physician: RUDY KING Law Reporter: June Brumfield, DEAN, RVT, RN, BSN Ordering Physician: FANI DENNEY Wall Motion Scores -1 - hyperkinesia, 0 - not evaluated, 1 - normal, 2 - hypokinesia, 3 - akinesia, 4 - dyskinesia Fani Denney MD CV ECHO PROCEDURES Final Result * (ABNORMAL) C-reactive protein (04/23/2025 5:02 AM EDT) Only the most recent of2 resultswithin the time period is included. [facility] Signature CRP 39.4(H) <=5.0 mg/L 04/23/2025 8:57 AM EDT [facility] ([facility]) Comment:Testing performed us ing a new methodology, turbidimetry. Normal ranges have been updated. Old normal range was <8 mg/L. Blood Venous blood specimen / Unknown Venipuncture / Unknown 04/23/2025 5:02 AM EDT 04/23/2025 5:22 AM EDT us Yanely Archer [facility] BLOOD ORDERABLES Final R esult [facility] ([facility]) [address] [place] [address] * CT cervical spine wo IV contrast [...] report. Electronically signed: Ayden Corbin MD. us Sunilanne Medina MD IMG CT PROCEDURES Final Resu lt * ECG 12 lead (04/23/2025 3:34 AM EDT) Only the most recent of4 resultswithin the time period is included. Ventricular Rate 120 BPM GE MUSE Atrial Rate 120 BPM GE MUSE [place] Interval 198 ms GE MUSE QRS DURATION 102 ms GE MUSE QT Interval 294 ms GE MUSE QTC CALCULATION(BAZE TT) 415 ms GE MUSE P [place] 64 degrees GE MUSE R-[place] 38 degrees GE MUSE T Wave [place] 116 degrees GE MUSE 04/23/2025 3:16 AM [...] Narrative 04/20/2025 5:38 PM EDT 1 1 [facility] Heart Station [address] [place] [address] [phone] (fax) Echocardiogram-[facility] Name: KRISTY DOHERTY Study Date: 04/20/2025 01:28 PM B/P: 83 mmHg/58 mmHg HR: 96 bpm Date of : 1955 Location: [facility] Height: 68 in. Age: 69 year(s) Patient Room: [facility] Weight: 179 lb. Gender: Male Patient [...] No pericardial effusion. Procedure Staff Reading Group: [facility] Referring Physician: RUDY KING Law Reporter: June Brumfield RDCS, RVT, RN, BSN Ordering Physician: VENU SAMANIEGO Wall Motion Scores -1 - hyperkinesia, 0 - not evaluated, 1 - normal, 2 - hypokinesia, 3 - akinesia, 4 - dyskinesia Procedure Note Mitesh Vernon MD - 04/20/2025 1 1 [facility] Heart Station [address] [facility] [place] [address] [phone] (fax) Echocardiogram-[facility] Name: KRISTY DOHERTY Study Date: 04/20/2025 01:28 PM B/P: 83 mmHg/58 mmHg HR: 96 bpm Date of : 1955 Location: [facility] Height: 68 in. Age: 69 year(s) [...] No pericardial effusion. Procedure Staff Reading Group: [facility] Referring Physician: RUDY KING Law Reporter: June Brumfield RDCS, RVT, RN, BSN Ordering Physician: VENU SAMANIEGO Wall Motion Scores -1 - hyperkinesia, 0 - not evaluated, 1 - normal, 2 - hypokinesia, 3 - akinesia, 4 - dyskinesia us Venu Samaniego MD CV ECHO PROCEDURES Final R esult * Osmolality (04/20/2025 12:25 PM EDT) Only the most recent of2 resultswithin the time period is included. Osmolality 276 275 - 295 mOsm/kg 04/20/2025 7:48 PM EDT [facility] Comment:Test Performed by [facility] [address] [place] [id number] - Released 04/20/2025 19:48 Blood Venous blood specimen / Unknown Venipuncture / Unknown 04/20/2025 12:25 PM EDT 04/20/2025 12:56 PM EDT us Benedict Horani MD LAB BLOOD ORDERABLES Final Resul t Performing Organization Address City/[facility]/ZIP Co de Phone Number [facility] [address] [place] [address] * Blood culture, peripheral #2 (04/20/2025 10:09 AM EDT) Only the most recent of2 resultswithin the time period is included. Blood Culture No growth at 5 days FLORA 04/25/2025 12:01 PM EDT [facility] ([facility]) Blood Venous blood specimen / Unknown Venipuncture / Unknown 04/20/2025 10:09 AM EDT 04/20/2025 12:00 PM EDT us Benedict Pascual MD LAB MICROBIOLOGY - GENERAL ORDER JAY Final Result Performing Organization Address City/[facility]/ZIP Co de Phone Number [facility] ([facility]) [address] [place] [address] * Cortisol (04/20/2025 5:15 AM EDT) Cortisol 11.2 6 - 23 ug/dL 04/20/2025 12:47 PM EDT [facility] ([facility]) Blood Venous blood specimen / Unknown Venipuncture / Unknown 04/20/2025 5:15 AM EDT 04/20/2025 5:22 AM EDT us Benedict Pascual MD LAB BLOOD ORDERABLES Final Resul t Performing Organization Address City/[facility]/ZIP Co de Phone Number [facility] ([facility]) [address] [place] [address] * (ABNORMAL) B-type natriuretic peptide (04/19/2025 6:25 PM EDT) BNP 254(H) 0 - 100 pg/mL 04/19/2025 7:07 PM EDT [facility] ([facility]) Blood Venous blood specimen / Unknown Venipuncture / Unknown 04/19/2025 6:25 PM EDT 04/19/2025 6:36 PM EDT us Venu Samaniego MD LAB BLOOD ORDERABLES Final Result [facility] ([facility]) [address] [place] [address] * LIMITED ECHO (TTE) (04/19/2025 3:37 PM EDT) Anatomical Region Laterality Modality Other 04/19/2025 2:13 PM EDT Narrative 04/19/2025 4:30 PM EDT 1 1 [facility] [address] [place] [address] [phone] (fax) Echocardiogram-[facility] Name: KRISTY DOHERTY Study Date: 04/19/2025 02:13 PM B/P: / HR: Date of : 1955 Location: [facility] Height: 68 in. Age: 69 year(s) Patient Room: [facility] Weight: 182 lb. Gender: Male Patient Status: InPt BSA: 1.96 m2 Indication: pericardialeffusion, h/o 35mm Watchman FLX Examination: Limited Echo Image Quality: Fair Findings Pericardium: Moderate pericardial effusion baseline. Post pericardiocentesis there is minimal pericardial effusion. Procedure Staff Reading Group: [facility] Referring Physician: RUDY KING Law Reporter: SAMI Starr, RDCS Ordering Physician: VENU SAMANIEGO Procedure Note Fani Denney MD - 04/19/2025 1 1 [facility] [address] [facility] [place] [address] [phone] (fax) Echocardiogram-[facility] Name: KRISTY DOHERTY Study Date: 04/19/2025 02:13 PM B/P: / HR: Date of : 1955 Location: [facility] Height: 68 in. Age: 69 year(s) Patient Room: 3183 Weight: 182 lb. Gender: Male Patient Status: InPt BSA: 1.96 m2 Indication: pericardialeffusion, h/o 35mm Watchman FLX Examination: Limited Echo Image Quality: Fair Findings Pericardium: Moderate pericardial effusion baseline. Post pericardiocentesis there is minimal pericardial effusion. Procedure Staff Reading Group: [facility] Referring Physician: RUDY KING Law Reporter: SAMI Starr, RDCS Ordering Physician: VENU SAMANIEGO us Venu Samaniego MD CV ECHO PROCEDURES Final R esult * Pathology Review (04/19/2025 3:23 PM EDT) Pathology Review Reviewed. Electronica lly signed by Kristy Dsouza MD on 04/20/25 at 9:17 AM. 04/20/2025 9:17 AM EDT [facility] ([employer]) Fluid (Pericardial Fluid) Non-blood Collection / Unknown 04/19/2025 3:23 PM EDT 04/19/2025 3:33 PM EDT us Venu Samaniego MD LAB BLOOD ORDERABLES Final Result [facility] ([facility]) [address] [place] [address] * Body fluid cell differential (04/19/2025 3:23 PM EDT) Total Cells Counted for Differential 100 04/20/2025 9:17 AM EDT [facility] ([facility]) Neutrophils Manual, Fluid 96 04/20/2025 9:17 AM EDT [facility] ([facility]) Lymphocytes Manual, Fluid 1 04/20/2025 9:17 AM EDT [facility] ([facility]) [place]/Macrophage Manual, Fluid 04/20/2025 9:17 AM EDT [facility] ([facility]) Eosinophils Manual, Fluid 04/20/2025 9:17 AM EDT [facility] ([facility]) Basophils Manual, Fluid 04/20/2025 9:17 AM EDT [facility] ([facility]) Mesothelial Manual, Fluid 3 04/20/2025 9:17 AM EDT [facility] ([facility]) Other Cells, BF Manual 04/20/2025 9:17 AM EDT [facility] ([facility]) Fluid (Pericardial Fluid) Non-blood Collection / Unknown 04/19/2025 3:23 PM EDT 04/19/2025 3:33 PM EDT Narrative [facility] ([facility]) - 04/20/2025 9:17 AM EDT Differential performed on cytospin us Venu Samaniego MD LAB BODY FLUIDS AND STOOLS ORDERABLES Final Result [facility] ([facility]) [address] [place] [address] * (ABNORMAL) Body fluid cell count with differential (04/19/2025 3:23 PM EDT) Fluid Type Cell Count Pericardial Fluid 04/20/2025 9:17 AM EDT [facility] ([facility]) Fluid Volume 300mL 04/20/2025 9:17 AM EDT [facility] ([facility]) RBC, Fluid 245,940(H) 0 - 1,000 RBC/uL 04/20/2025 9:17 AM EDT [facility] ([facility]) Total Number of Nucleated Cells 14,314 TNC/uL 04/20/2025 9:17 AM EDT [facility] ([facility]) Fluid (Pericardial Fluid) Non-blood Collection / Unknown 04/19/2025 3:23 PM EDT 04/19/2025 3:33 PM EDT Narrative [facility] ([facility]) - 04/20/2025 9:17 AM EDT Reference Ranges [...] STOOLS ORDERABLES Final Result Performing Organization Address City/[facility]/ZIP Co de Phone Number [facility]) [address] [place] [address] * Anaerobic culture (04/19/2025 3:23 PM EDT) Anaerobic Culture No anaerobes isolated at day 5 FLORA 04/25/2025 10:[address] [facility]) 04/19/2025 3:23 PM EDT 04/19/2025 3:33 PM EDT us Venu Samaniego MD LAB MICROBIOLOGY - GENERAL ORDERABLES Final Result Performing Organization Address City/[facility] Co de Phone Number [facility] ([facility]) [address] [place] [address] * Non-manager area cytology - cellular exam (04/19/2025 3:23 PM EDT) Case Report Non-gynecologic Cytology Case: [id number] Authorizing Provider: Venu Samaniego MD Collected: 04/19/2025 1523 Ordering Location: [facility] Received: 04/19/2025 1533 Pathologist: Halima Marr MD Specimen: Pericardial Fluid 04/24/2025 5:46 PM EDT [facility] ([facility]) Final Diagnosis A. Pericardial fluid: - Negative for malignancy. - Marked acute inflammation. 04/24/2025 5:46 PM EDT [facility] ([facility]) at 1746 EDT Microscopic Description Satisfactory for evaluation. Examination of the ThinPrep slide and cell block reveals rare benign mesothelial cells and abundant acute inflammation. 04/24/2025 5:46 PM EDT [facility] ([facility]) Clinical Information Pericardial effusion 04/24/2025 5:46 PM EDT [facility] ([facility]) Gross Description 250 mL opaque, red fluid 04/24/2025 5:46 PM EDT [facility] ([facility]) Pericardial Fluid 04/19/2025 3:23 PM EDT 04/19/2025 3:33 PM EDT us Venu Samaniego MD LAB CYTOLOGY ORDERABLES Fi nal Result [facility] ([facility]) [address] [place] [address] * LEFT HEART CATH, RIGHT HEART CATH, [...] and a micropuncture access technique a 6 Haitian sheath was placed in the right femoral [...] (ABNORMAL) POC Hb02% (04/19/2025 2:47 PM EDT) Only the most recent of2 resultswithin the time period is included. HEEXRX51% 67.2(A) 90 - 95 % QC Pass/Fail Passed QC LOT # [id number] QC Expiration Date 73,126 SAMPLESITE nl Blood Venous blood specimen / Unknown 04/19/2025 2:47 PM EDT Narrative Farshad Ramirez MT - 04/20/2025 6:16 AM EDT Oper [id number] Benedict Pascual MD POINT OF CARE TEST ENTER/EDIT OR DERABLES Final Result * Light Green Top (04/19/2025 2:44 PM EDT) Extra Tube Hold for add-ons. 04/19/2025 4:01 PM EDT [facility] ([facility]) Comment:Auto resulted. Blood Venous blood specimen / Unknown Venipuncture / Unknown 04/19/2025 2:44 PM EDT 04/19/2025 2:55 PM EDT Benedict Pascual MD LAB BLOOD ORDERABLES Final Resul t Performing Organization Address [facility] Co de Phone Number [address] [address] * COLLIN (04/19/2025 2:44 PM EDT) COLLIN Titer <1:40 <=1:40 04/24/2025 1:12 PM EDT [facility] ([facility]) Comment:Test performed using DAVID IFA COLLIN Hep-2 Test, a pre-standardized assay designed for the qualitative and semi-quantitative detection of antinuclear antibodies. Blood Venous blood specimen / Unknown Venipuncture / Unknown 04/19/2025 2:44 PM EDT 04/19/2025 2:54 PM EDT Venu Samaniego MD LAB BLOOD ORDERABLES Final Result Performing Organization Address [facility] Co de Phone Number [facility]) [address] [place] [address] * Lavender Top (04/19/2025 2:32 PM EDT) Pathologist [facility] Extra Tube Hold for add-ons. 04/19/2025 4:01 PM EDT [facility] ([facility]) Comment:Auto resulted. Blood Venous blood specimen / Unknown Venipuncture / Unknown 04/19/2025 2:32 PM EDT 04/19/2025 2:55 PM EDT Benedict Pascual MD LAB BLOOD ORDERABLES Final Resul t Performing Organization Address [facility] Co de Phone Number [facility]) [address] [place] [address] * COMPLETE ECHO (TTE) (04/19/2025 1:13 PM EDT) Anatomical Region Laterality Modality Other 04/19/2025 12:4 6 PM EDT Narrative 04/19/2025 1:44 PM EDT 1 1 [facility] Heart Station [address] [place] [address] [phone] (fax) Echocardiogram-[facility] Name: KRISTY DOHERTY Study Date: 04/19/2025 12:46 PM B/P: 97 mmHg/71 mmHg HR: Date of : 1955 Location: [facility] Height: 68 in. Age: 69 year(s) Patient Room: [facility] Weight: 182 lb. Gender: Male Patient Status: [...] early tamponade physiology. Procedure Staff Reading Group: [facility] Law Reporter: Bryanna Cazares RDCS Ordering Physician: HAKAN NICOLAS Procedure Note Mitesh Vernon MD - 04/19/2025 1 1 [facility] Heart Station [address] [place] [address] [phone] (fax) Echocardiogram-[facility] Name: KRISTY DOHERTY Study Date: 04/19/2025 12:46 PM B/P: 97 mmHg/71 mmHg HR: Date of : 1955 Location: [facility] Height: 68 in. Age: 69 year(s) Patient Room: [facility]3 Weight: 182 lb. Gender: Male Patient [...] early tamponade physiology. Procedure Staff Reading Group: [facility] Law Reporter: Bryanna Cazares RDCS Ordering Physician: HAKAN NICOLAS Hakan Nicolas PA-Ina CV ECHO PROCEDURES Final Result * High Sensitivity Troponin I (04/19/2025 12:14 PM EDT) [facility] High Sensitivity Troponin I 7 <20 ng/L 04/19/2025 2:02 PM EDT [facility]) Blood Venous blood specimen / Unknown Venipuncture / Unknown 04/19/2025 12:14 PM EDT 04/19/2025 12:35 PM EDT Mitesh Vernon MD LAB BLOOD ORDERABLES Final Res ult [facility]) [address] [place] [address] * Sedimentation rate (04/19/2025 12:14 PM EDT) Pathologist [facility] Sed Rate 18 <20 mm/hr 04/19/2025 3:3 7 PM EDT [facility]) Blood Venous blood specimen / Unknown Venipuncture / Unknown 04/19/2025 12:14 PM EDT 04/19/2025 12:35 PM EDT us Venu Samaniego MD LAB BLOOD ORDERABLES Final Result [facility]) [address] [place] [address] * Creatinine, Serum (03/26/2025 2:43 PM EDT) Creatinine 0.95 0.70 - 1.30 mg/dL 03/26/2025 4:16 PM EDT [facility] ([facility]) eGFR 86.6 >60.0 mL/min/1. 73m*2 03/26/2025 4:16 PM EDT [facility] ([facility]) Comment:[facility] s estimated glomerular filtration rate (eGFR) [...] blood specimen / Unknown Venipuncture / Unknown 03/26/2025 2:43 PM EDT 03/26/2025 3:44 PM EDT us Chuck Gutierrez [facility] BLOOD ORDERABLES Final Re sult [facility] ([facility]ARAD) [address] [place] [address] * CARDIAC DEVICE CHECK - REMOTE - ICD (03/26/2025 11:56 AM EDT) Only the most recent of4 resultswithin the time period is included. us Wil Sotomayor MD CV IMPLANTABLE CARDIAC DEVICE [place] OCEDURES Final Result [facility] * Cardiac device check - Remote ICD (03/23/2025 12:00 AM EDT) Only the most recent of2 resultswithin the time period is included. Anatomical Region Laterality Modality Other 03/23/2025 us Dariel Wagoner MD CV IMPLANTABLE CARDIAC DEVICE P ROCEDURES Final Result * (ABNORMAL) Potassium (02/07/2025 12:19 PM EDT) Potassium 3.4(L) 3.5 - 5.1 mmol/L 02/07/2025 2:04 PM EDT [facility] ([facility]) Blood Venous blood specimen / Unknown Venipuncture / Unknown 02/07/2025 12:19 PM EDT 02/07/2025 1:27 PM EDT us Hay William MD LAB BLOOD ORDERABLES Final R esult [facility] ([facility]) [address] [place] [address] * LIMITED ECHO (TTE) W/ COLOR FLOW AND IMAGING AGENT (02/07/2025 8:23 AM EDT) Anatomical Region Laterality Modality Other 02/07/2025 8:02 AM EDT Narrative 02/07/2025 10:13 AM EDT 1 1 [facility] Heart Station [address] [place] [address] [phone] (fax) Echocardiogram-[facility] Name: KRISTY DOHERTY Study Date: 02/07/2025 08:02 AM B/P: 118 mmHg/85 mmHg HR: 63 bpm Date of : 1955 Location: [facility] Height: 68 in. Age: 69 year(s) [...] seated 35mm Watchman FLX PRO. Measurements Left Ventricle Label Value Normal Value LVDd, 2D 5.86 cm [...] No pericardial effusion. Procedure Staff Reading Group: [facility] Referring Physician: RUDY KING Law Reporter: SAMI Starr, RDCS Ordering Physician: CHUCK GUTIERREZ Procedure Note Mitesh Vernon MD - 02/07/2025 1 1 [facility] Heart Station [address] [place] [address] [phone] (fax) Echocardiogram-[facility] Name: KRISTY DOHERTY Study Date: 02/07/2025 08:02 AM B/P: 118 mmHg/85 mmHg HR: 63 bpm Date of : 1955 Location: [facility] Height: 68 in. Age: 69 year(s) Patient Room: [facility] Weight: 186 lb. Gender: Male Patient [...] seated 35mm Watchman FLX PRO. Measurements Left Ventricle Label Value Normal Value LVDd, 2D 5.86 cm [...] No pericardial effusion. Procedure Staff Reading Group: [facility] Referring Physician: RUDY KING Law Reporter: SAMI Starr, RDCS Ordering Physician: CHUCK GUTIERREZ Chuck Gutierrez [facility] CV ECHO PROCEDURES Final Resu lt * (ABNORMAL) Activated clotting time (02/06/2025 7:07 PM EDT) Only the most recent of2 resultswithin the time period is included. Activated Clotting Time 316(H) 82 - 152 s 02/06/2025 7:07 PM EDT [facility] ([facility]) Blood Venous blood specimen / Unknown 02/06/2025 7:07 PM EDT 02/06/2025 7:07 PM EDT us Hay William MD LAB POINT OF CARE TE ST DOCKED DEVICE UNSOLICITED RESULTS Final Result [facility]) [address] [place] [address] * LEFT ATRIAL APPENDAGE CLOSURE (TRANSVENOUS) (02/06/2025 1:05 PM EDT) Anatomical Region Laterality Modality Other Narrative 02/06/2025 1:21 PM EDT INDICATION: The patient is a 69 y.o. male with complex prior medical history including Paroxysmal atrial fibrillation, who needs long-term anticoagulation therapy to reduce the risk of stroke given elevated [id number] score of 4 due to age, hypertension, heart failure, and vascular disease. he is not a good candidate for long-term anticoagulation due to significant upper extremity ecchymosis and difficult to control bleeding lesions. Following evaluation in Cardiology Clinic, percutaneous ROBB closure procedure was recommended as an alternative to long-term anticoagulation. he had a shared decision making with Dr Rudy King, and both agreed that ROBB closure is a good alternative for him. The procedure is to be performed under intracardiac echocardiography guidance. PROCEDURES: 1. Successful left atrial appendage closure using a 35 mm Watchman FLX Pro device performed under fluoroscopic and intracardiac echocardiography guidance. 2. Transseptal puncture performed under fluoroscopic and intracardiac echocardiography guidance. 3. Left atrial appendage angiogram. 4. Access into the right common femoral vein under ultrasound guidance. 5. Preclosure in the right common femoral vein. METHODS: The procedure was explained to the patient with risks and benefits. Informed consent was signed. The groin areas were prepped and draped in the usual fashion. Micropuncture technique and ultrasound guidance were used for access in the right common femoral vein and two 6-Haitian x 11 cm sheaths were placed in the right common femoral vein with Preclosure sequentially performed after obtaining each access using a 6-Haitian ProGlide device. The patient was given 5000 units of heparin. From the right femoral venous access the 2D AcuNav ICE catheter was advanced. Intracardiac echocardiogram was performed under conscious sedation. The appendage was measured. There was small pericardial effusion at baseline. There was no evidence of thrombus in the left atrial appendage. The transseptal sheath wire was advanced into the superior vena cava and an SL1 transseptal sheath and dilator were advanced. The BRK-1 needle was then advanced, and under fluoroscopic and echocardiographic guidance, a transseptal puncture was performed in a middle position along the anterior/posterior axis and inferior position along the superior/inferior axis of the atrial septum. The sheath was advanced to the left atrium and position confirmed by echocardiography and fluoroscopy. Left atrial pressure was measured. Additional heparin was given as needed, and therapeutic ACT confirmed during the rest of the procedure. An exchange length Amplatz Super Stiff wire was advanced to the left superior pulmonary vein. The transseptal sheath was exchanged to the 15-Haitian double curve Watchman FXD Access System, which was advanced to the left atrial cavity and used to dilate the inter-atrial septum. The watchman sheath was retracted and the wire was left in place. The ice catheter was then advanced alongside the wire across the interatrial septum into the left atrium and used to perform imaging of the left atrial appendage with measurements. The Watchman access sheath was then advanced over the wire in the left atrial cavity. A 6-Haitian angled pigtail catheter was advanced through the sheath to the left atrial appendage. Left atrial appendage angiogram was performed in right anterior oblique with caudal angulation view. Additional fluoroscopic measurements were performed. We decided to proceed with a 27 mm Watchman FLX Pro device since the maximum width of the appendage was measured at 22 mm by ICE and by fluoroscopy. The Watchman device was advanced into the left atrial appendage and the FLX ball was performed. Angiography confirmed adequate position. The device was deployed successfully. The device however was not able to obtain adequate compression therefore this was retrieved and replaced with a 31 mm Watchman FLX Pro device. This was deployed in the appendage and achieved adequate compression. However on interrogation by intracardiac echocardiography, there was evidence of lack of coverage of one of the lobes of the appendage which was multilobular and complex and had a lot of large pectinate muscles. Therefore we decided to upsized to a 35 mm device. The device was prepped using standard technique. The device was advanced and deployed in the appendage. A tug test was performed. In order to cover the site lobe of the appendage the device had to be deployed a little more proximal. However there was more than two thirds of the device beyond the level of the circumflex artery. The position was deemed optimal. Therefore, an angiogram was performed. Intracardiac echocardiography confirmed a device compression ranging between 20% and 26%. There was no evidence of ted-device leak by color-flow. The device was well positioned across the left atrial appendage ostium, and was stable in position after repeated imaging. Given that the device met all the PASS criteria, the device was released and stayed in stable position. The Watchman access sheath was retracted. Intracardiac echocardiography at the end of the procedure showed the device to be in stable position, with no evidence of new pericardial effusion. The ICE catheter was retracted and removed. The previously placed Perclose sutures were tightened in the femoral venous access sites achieving good hemostasis. The patient tolerated the procedure well. he was transferred to the cardiovascular recovery area, and then he will be transferred to his hospital bed for further management. Left atrial pressure: 5 mmHg. The patient was given intravenous fluid during the procedure. RECOMMENDATIONS: 1. The patient will be observed in the hospital. 2. The patient will obtain an echocardiogram prior to discharge. 3. Endocarditis prophylaxis for 6 months after left atrial appendage closure. 4. Aspirin 81 mg and clopidogrel 75 mg daily for 6 months, followed by aspirin 81 mg daily after 6 months. 5. The patient will be scheduled for a 45-day imaging per Watchman protocol, and follow up in Cardiology Clinic. Hay William MD Study Details Paroxysmal atrial fibrillation ([facility]) [I48.0] Chuck Gutierrez CNP CV ELECTROPHYSIOLOGY PROCEDUR ES Final Result * Type and screen (02/06/2025 7:46 AM EDT) ABO Grouping A 02/06/2025 8:39 AM EDT [facility] Rh Type POS 02/06/2025 8:39 AM EDT [facility] Ab Scrn NEG 02/06/2025 8:39 AM EDT [facility] Blood Venous blood specimen / Unknown Venipuncture / Unknown 02/06/2025 7:46 AM EDT 02/06/2025 7:46 AM EDT Chuck Bethcker ACCOUNTS CLERK LAB BLOOD BANK TEST ORDERABLE S Final Result [facility] * Cardiac device check - Remote alert ICD (02/04/2025 12:00 AM EDT) Anatomical Region Laterality Modality Other 02/04/2025 us Bobo Raymond MD CV IMPLANTABLE CARDIAC DEVICE [place] OCEDURES Final Result from Last 3 Months Insurance [facility] MEDICARE ADVANTAGE Advance Directives * Full Code (Latest Code Status on File) Date Activated Date Inactivated Comments 04/19/2025 11:51 AM 05/04/2025 6:33 PM * Full Code Date Activated Date Inactivated Comments 02/06/2025 1:12 PM 02/07/2025 5:23 PM * Full Code Date Activated Date Inactivated Comments 07/02/2022 11:10 PM 07/04/2022 3:19 PM Care Teams Ski Tow Operator Relationship Specialty Start Date End Date Rudy King MD [address] [place] [address] PCP - General 07/03/22
--- OUTSIDE RECORDS SUMMARY | 2025-05-07 07:55 | XMS_ITS ---
Author Organization [facility] Address [address] [place] [address] Care Team Providers Care Slitting Machine Operator Helper Name Role Phone Rudy Guerra MD Primary Care Provider [phone] Active Problems Problem Noted Date Diagnosed Date Cardiogenic shock 05/03/2025 Assessment & Plan (05/03/2025 12:13 PM EDT): - Required [place] Stacy and dobutamine in ICU. - Improving. [...] Plan (05/03/2025 12:13 PM EDT): - Required [place] Stacy and dobutamine in ICU. - Improving. [...] early tamponade. Patient was taken to lab courier for Pericardiocentesis. Right heart cath was not suggestive for tamponade. 300 ml serosanguinous fluid. - Repeated echo showed mild effusion. Assessment & Plan (04/24/2025 4:13 PM EDT): - Echo showed early tamponade. Patient was taken to lab courier for Pericardiocentesis. Right heart cath was not suggestive for tamponade. 300 ml serosanguinous fluid. - Monitor BP. - Continue colchicine per Cardiology. - Repeated echo showed mild effusion. Assessment & Plan (04/23/2025 3:28 PM EDT): - Echo showed early tamponade. Patient was taken to lab courier for Pericardiocentesis. Right heart cath was not suggestive for tamponade. 300 ml serosanguinous fluid. - Monitor BP. - Continue colchicine per Cardiology. - Repeated echo showed mild effusion. Assessment & Plan (04/22/2025 8:13 PM EDT): - Echo showed early tamponade. Patient was taken to lab courier for Pericardiocentesis. Right heart cath was not suggestive for tamponade. 300 ml serosanguinous fluid and pigtail was placed. - Monitor BP. - Continue colchicine per Cardiology. - Repeat echo on Monday 04/23. Assessment & Plan (04/21/2025 4:54 PM EDT): - Echo showed early tamponade. Patient was taken to lab courier for Pericardiocentesis. Right heart cath was not suggestive for tamponade. 300 ml serosanguinous fluid and pigtail was placed. - Monitor BP. - Continue colchicine per Cardiology. - Follow up blood and fluid cx. - Repeat echo on Monday 04/23. Assessment & Plan (04/20/2025 12:20 PM EDT): - Echo showed early tamponade. Patient was taken to lab courier for Pericardiocentesis. Right heart cath was not [...] small pericardial effusion. Workup was negative for [place] Daily Update: patient arrived from [place]. Pain has improved to 2/10 Today's Plan: [...] early tamponade. Patient was taken to lab courier for Pericardiocentesis. Right heart cath was not suggestive for tamponade. 300 ml serosanguinous fluid. - Repeated echo showed mild effusion. Assessment & Plan (04/24/2025 4:13 PM EDT): - Echo showed early tamponade. Patient was taken to lab courier for Pericardiocentesis. Right heart cath was not suggestive for tamponade. 300 ml serosanguinous fluid. - Monitor BP. - Continue colchicine per Cardiology. - Repeated echo showed mild effusion. Assessment & Plan (04/23/2025 3:28 PM EDT): - Echo showed early tamponade. Patient was taken to lab courier for Pericardiocentesis. Right heart cath was not suggestive for tamponade. 300 ml serosanguinous fluid. - Monitor BP. - Continue colchicine per Cardiology. - Repeated echo showed mild effusion. Assessment & Plan (04/22/2025 8:13 PM EDT): - Echo showed early tamponade. Patient was taken to lab courier for Pericardiocentesis. Right heart cath was not suggestive for tamponade. 300 ml serosanguinous fluid and pigtail was placed. - Monitor BP. - Continue colchicine per Cardiology. - Repeat echo on Monday 04/23. Assessment & Plan (04/21/2025 4:54 PM EDT): - Echo showed early tamponade. Patient was taken to lab courier for Pericardiocentesis. Right heart cath was not suggestive for tamponade. 300 ml serosanguinous fluid and pigtail was placed. - Monitor BP. - Continue colchicine per Cardiology. - Follow up blood and fluid cx. - Repeat echo on Monday 04/23. Assessment & Plan (04/20/2025 12:20 PM EDT): - Echo showed early tamponade. Patient was taken to lab courier for Pericardiocentesis. Right heart cath was not [...] small pericardial effusion. Workup was negative for [place] Daily Update: patient arrived from [place]. 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 07/06/2022 Assessment & [...] Assessment & Plan (01/06/2024 12:03 PM EDT): [facility] II- currently EF improved from 25-30% to 40% Remains euvolemic and stable Continue GDMT- lipitor, farxiga, toprol, entresto and aldactone Diuretic therapy- continue farxiga Monitor daily weights, I&O, fluid restriction 1.5-2L/day, renal function and electrolytes- Currently stable - improved EF- continue all medications Assessment & Plan (02/19/2023 1:05 PM EDT): [facility] II- currently euvolemic without exacerbation Continue GDMT- [...] complexes he may no BiV ICD -continue [id number], entresto 24-, will add medications pending echo Syncope and collapse 07/02/2022 Overview (07/03/2022): Added automatically from request for surgery [id number] Uncomplicated asthma 07/29/2012 Assessment & Plan (05/03/2025 [...] Automatic Entry Manual Entr y Fluoro Time 25.56 minutes 0 minutes 25.56 minutes Air Kerma 2,028.5 mGy 0 mGy 2,028.5 mGy Resolved Problems Problem Noted Date Diagnosed Date Resolved Date Hx of benign neoplasm of prostate 07/03/2022 07/03/2022
--- OUTSIDE RECORDS SUMMARY | 2025-05-07 07:55 | XMS_ITS | Encounter Summary ---
Author Organization [facility] Address [address] [place] [address] Care Team Providers Care Granite Setter Name Role Phone Rudy Guerra MD Primary Care Provider [phone] Encounter Details Date Type Department Care Team (Late st Contact Info) Description 01/17/2025 Orders Only [facility] [address] [place] [address] Bobo Raymond MD [address] [place] [address] Social History Tobacco Use Types [...] Description 05/14/2025 1:40 PM EDT Office Visit [facility] [address] [place] [id number] Elliott Nettles, TRUCK MANAGER [address] [place] [address] documented as of this encounter Procedures Procedure Name Priority Date/Time Associated Diagnosis Comments CARDIAC DEVICE CHECK - REMOTE - ICD Routine 01/17/2025 12:00 AM EDT documented in this encounter Results * Cardiac device check - Remote ICD (01/17/2025 12:00 AM EDT) Anatomical Region Laterality Modality Other 01/17/2025 Bobo Raymond MD CV IMPLANTABLE CARDIAC DEVICE [place] OCEDURES Final Result documented in this encounter Visit Diagnoses Not on filedocumented in this encounter Additional Health Concerns Infection Onset Date Last Indicated Resolved Time C. difficile Rule-Out Comment:Test discontinued 04/22/2025 04/22/2025 04/24/2025 7:3 1 AM EDT documented as of this encounter Care Teams Granite Setter Relationship Specialty Start Date End Date Rudy Guerra MD [address] [place] [address] PCP - General 07/03/22 documented as of this encounter
[2025-05-07 08:16] LABS: Hematocrit 33.4 % (42.0-54.0); Hemoglobin 11.3 g/dL (14.0-18.0); Immature Granulocytes Abs Auto 0.02 10^3/uL (0.00-0.03); Immature Granulocytes Pct Auto 0.3 % (0.0-0.5); Lymphocytes Absolute Auto 1.9 10^3/uL (1.2-3.8); Mean Corpuscular HGB Conc 33.8 g/dL (29.9-35.2); Mean Corpuscular Hemoglobin 31.4 pg (25.9-34.0); Mean Corpuscular Volume 92.8 fL (80.0-94.0); Platelet Count 320 10^3/uL (150-450); Red Blood Count 3.60 10^6/uL (4.70-6.10); White Blood Count 6.6 10^3/uL (4.0-11.0)
[2025-05-07 08:40] LABS: Anion Gap 14.9; Blood Urea Nitrogen 31.0 mg/dL (7.0-18.0); Calcium 9.0 mg/dL (8.5-10.1); Carbon Dioxide 25.3 mmol/L (21.0-32.0); Chloride 100 mmol/L (98-107); Estimated GFR (African America 53 (>=60 mL/min/1.73m^2); Estimated GFR (Non-African Ame 44 (>=60 mL/min/1.73m^2); Glucose 98 mg/dL (74-106); Potassium 4.2 mmol/L (3.5-5.1); Sodium 136 mmol/L (136-145)
== END 2025-05-07 07:46 | disposition home or self-care (01) ==
LOC: LAB 07:47
PROVIDERS: PCP Family Medicine
DX: E87.1 Hypo-osmolality and hyponatremia (principal); T82.898S Other specified complication of vascular prosthetic devices, implants and grafts, sequela
CPT/HCPCS: 36415; 80048; 85025

== ENCOUNTER 2025-05-14 14:18 | Outpatient (OUT) | payer MEDICARE, SELFPAY ==
--- OUTSIDE RECORDS SUMMARY | 2025-04-19 10:46 | XMS_ITS | Encounter Summary ---
Author Organization [facility] Address [address] [place] [address] Care Team Providers Care Engineering Drawings Checker Name Role Phone Rudy King MD Primary Care Provider [phone] Reason for Referral * Consultation (Routine) - Pending ReviewSpecialtyDiagnoses / ProceduresReferred By ContactReferred To ContactCardiopulmonary Rehab / CardioPulmonary Rehab Diagnoses Heart failure with reduced ejection fraction (CMS/HCC) Procedures [place] OFFICE/OUTPATIENT NEW [facility] 60 MINUTES Mitesh Vernon MD [address] [place] [address] Phone: tel: fax: [facility] [address] [place] [address] [place] [address] Phone: tel: fax: Referral IDStatusReasonStart DateExpiration DateVisits RequestedVisits [id number] Review Specialty Services Required * (Emergency) - Pending ReviewSpecialtyDiagnoses / ProceduresReferred By Contact Referred To Contact Procedures ECG 12 lead Osito Kline MD [address] [place] [address] [place] [address] Phone: tel: fax: Referral IDStatusReasonStart DateExpiration DateVisits RequestedVisits [id number] * (Routine) - Pending ReviewSpecialtyDiagnoses / ProceduresReferred By Contact Referred To Contact Procedures ECG 12 lead Mitesh Vernon MD [address] [place] [phone] Phone: tel: fax: Referral IDStatusReasonStart DateExpiration DateVisits RequestedVisits [id number] [id number]/ * (Routine) - Pending ReviewSpecialtyDiagnoses / ProceduresReferred By Contact Referred To Contact Procedures ECG 12 lead Hakan Reyes PA-C [address] [place] [phone] Phone: tel: fax: Referral IDStatusReasonStart DateExpiration DateVisits RequestedVisits [id number]/ Reason for Visit * Auth/Cert (Routine)SpecialtyDiagnoses / ProceduresReferred By ContactReferred To Contact Diagnoses CP Procedures NO CODED SERVICE Benedict Pascual MD [address] [place] [phone] Phone: tel: fax: [address] [phone] Phone: tel: fax: Referral IDStatusReasonStart DateExpiration DateVisits RequestedVisits [id number] Encounter Details DateTypeDepartmentCare Team (Latest Contact Info)Dytlyfmkuxw30/02/2025 10:46 AM EDT - 05/04/2025 4:33 PM EDTHospital Encounter [facility] [address] [place] [address] Benedict Pascual MD [address] [place] [phone] Osito Kline MD [address] [facility] [place] [address] Hay William MD [address] [facility] [address] [facility] [place] [address] Pepe Anthony MD [address] [facility] [address] [place] [phone] Dg Power MD [address] [facility] [address] [facility] [place] [address] Kaiden Rain MD [address] [place], [place] [id number] Chest pain (Primary Dx); Pericardial effusion; Right ventricular dysfunction; Paroxysmal atrial fibrillation (CMS/HCC); PVC (premature ventricular contraction); Chest pain, unspecified type; Heart failure with reduced ejection fraction (CMS/HCC); Generalized weakness; Other forms of angina pectoris; Hyponatremia; Hematoma of intravenous catheter site, sequela; Chronic systolic heart failure (CMS/HCC) Discharge Disposition: [place]-Health Care [facility] [place] Social History Tobacco UseTypesPacks/DayYears UsedDateSmoking Tobacco: FormerCigarettes Smokeless Tobacco: NeverAlcohol UseStandard Drinks/BawcPdugadzeHuw76 (1 standard drink = 0.6 oz pure alcohol)occasional[facility] UtilitiesAnswerDate RecordedIn the past 12 months has the [employer], gas, oil, or water [employer] threatened to shut off services in your home?04/19/2025Humiliation, Afraid, Rape, and Kick questionnaireAnswerDate RecordedWithin the last year, have you been afraid of your partner or ex-partner?No10/02/2025Emotionally AbusedNot on file04/19/2025 Physically AbusedNot on file04/19/2025Sexually AbusedNot on file04/19/2025 Overall Financial Resource Strain (CARDIA)AnswerDate RecordedHow hard is it for you to pay for the very basics like food, housing, medical care, and heating?Not hard at all04/19/2025TransportationAnswerDate RecordedIn the past 12 months, has lack of transportation kept you from medical appointments or from getting medications?No04/19/2025Lack of Transportation (Non-Medical)Not on file 04/19/2025Housing Stability Vital SignAnswerDate RecordedIn the last 12 months, was there a time when you were not able to pay the mortgage or rent on time?No 04/19/2025Number of Times Moved in the Last YearNot on file04/19/2025t any time in the past 12 months, were you homeless or living in a halfway (including now)? No04/19/2025Hunger Vital SignAnswerDate RecordedWithin the past 12 months, you worried that your food would run out before you got the money to buymore.Never true04/19/2025Ran Out of Food in the Last YearNot on file04/19/2025Sex and Gender InformationValueDate RecordedSex Assigned at FtygnXxsp28/06/2025 8:51 AM EDTLegal QcuLneg3501/14/2022 10:53 PM EDTGender ZbktzereEgeg20/06/2025 8:51 AM EDT Sexual OrientationHeterosexual or Aoctvqzh24/06/2025 8:51 AM EDTdocumented as of this encounter Last Filed Vital Signs Vital SignReadingTime TakenCommentsBlood Ydifkawi897/6505/04/2025 12:07 PM EDT Kfnvp149305/04/2025 12:07 PM LNCZdzblgjohjp14.9 ??C (98.4 ??F)05/04/2025 12:07 PM EDTRespiratory Diez725805/04/2025 12:07 PM EDTOxygen Kjuikmyigb22%05/04/2025 12:07 PM EDTInhaled Oxygen Concentration--Wusecl00.9 kg (187 lb 1.6 oz)05/04/2025 5:00 AM YZOWvxrao382.7 cm (5' 8 )04/19/2025 10:49 AM EDTBody Mass Index28.45 04/19/2025 10:49 AM EDTdocumented in this encounter Functional Status * QuestionAnswerDate of ZqldmipgduEarxasCX898/6505/04/2025 12:07 PM Beena Martines RNPulse9505/04/2025 12:07 PM Beena Martines RNHeart Rate SourceMonitor 05/04/2025 12:07 PM Beena Martines RNPatient MwoniffsDoafkij08/17/2025 12:07 PM Beena Martines RN * Sherman Fall RiskQuestionAnswerDate of AssessmentAuthorHistory of Falling, Immediate or Within 3 Fkgdsl060 9:23 AM Beena Martines RNSecondary Cqyxmjckk9191/17/2025 9:23 AM Beena Martines, RNAmbulatory Lar602 9:23 AM Beena Martines RNIntravenous Therapy/Heparin Wqok765 9:23 AM Beena Martines RNGait/Cqrpxpcxhkbt7590/17/2025 9:23 AM Beena Martines RN Mental Rukvad052 9:23 AM Beena Martines RNMojoseee Fall Risk Score25 05/04/2025 9:23 AM Beena Martines RN * Christiano ScaleQuestionAnswerDate of AssessmentAuthorBraden No Risk Interventions Continue to assess patient according to level of care05/04/2025 9:23 AM Beena Alcaraz RNBraden Mild InterventionsOff loaded ankles and feet;Applied barrier ointment;3 or less layers under the patient (i.e sheets,brief, taps, etc);Applied Mepilex on bony prominences;Reposition every 2 hours (make sure to document turns under activity tab);Evaluate nutritional status;Maintained bed at no more than 30 pdbmwvz4505/03/2025 8:50 PM Myesha Pugh RN Sensory Tklrkjwxcgz118/17/2025 9:23 AM Beena Martines RNMoisture31 9:23 AM Beena Martines, JOKwzvaknh373/17/2025 9:23 AM Beena Martines RN Nifkrycj349/17/2025 9:23 AM Beena Martines RZZnytuubzl152/17/2025 9:23 AM Beena Martines, RNFriction and Mnqfr160 9:23 AM Beena Martines RN Christiano Scale Bakme125105/04/2025 9:23 AM Beena Martines RN * Patient's Stated Pain GoalAnswerDate of AssessmentAuthorNo pain05/04/2025 3:45 PM Daisy Reinoso RN * High Fall Risk InterventionsQuestionAnswerDate of AssessmentAuthorHigh Fall Risk KrfeztrcwlxptGgmnxwsr91/17/2025 9:23 AM Beena Martines RN * Fields Fall Risk InterventionsQuestionAnswerDate of AssessmentAuthor Fields Fall Risk HqfiotsacydcxNoxavwxh25/17/2025 9:23 AM Beena Martines RN * Patient Requests Lesser Strength MedicationAnswerDate of AssessmentAuthor Patient Request for Lesser Uxetejwwlm59/16/2025 9:36 PM Myesha Pugh RN * Pain Assessment TimerQuestionAnswerDate of AssessmentAuthorRestart Pain Assessment BgytcAkc09/17/2025 3:45 PM Daisy Reinoso RN * Sepsis Model ScoresQuestionAnswerDate of AssessmentAuthorEarly Detection of Sepsis Score0.351 4:15 PM Barber YinqEarly Detection of Sepsis Iftjj201 4:31 PM Jennifer Yin * Pain AssessmentQuestionAnswerDate of AssessmentAuthorPain LocationWrist 05/04/2025 10:54 AM Ashley Vela COTAPain DinajpemzapKdnkj98/17/2025 10:54 AM Ashley Vela COTAPain BdzwodqjiovljFwbmvqrg43/17/2025 9:23 AM EDT Beena Price RNPain PjxmxnqgmxeKievmwmik22/16/2025 8:16 AM Daisy Reinoso RNPain UmqyeUzpytng24/16/2025 8:16 AM Daisy Reinoso RNPain FrequencyConstant/anmiwlfagw33/16/2025 8:16 AM Daisy Reinoso RNResponse to Interventionssleeping fmnwvwk9905/04/2025 1:13 AM Myesha Pugh RNPain TypeAcute pain05/04/2025 10:54 AM Ashley Vela COTAClinical ProgressionNot jqrgqqo8205/04/2025 9:23 AM Beena Martines RNPain Assessment0-101 10:54 AM Ashley Vela COTA * Pain ScoreAnswerDate of AssessmentAuthor5 - Moderate pain05/04/2025 3:45 PM Daisy Reinoso RN * MEWS SCOREQuestionAnswerDate of AssessmentAuthorMEWS DNHVT530 4:01 PM Jennifer Yin * Patient BehaviorsAnswerDate of JnqeilpuajIjfonwEnwppskk68/15/2025 12:25 PM EDT Little Hector RN * Deterioration Index ScoreQuestionAnswerDate of AssessmentAuthorDeterioration Index Score32.5205/04/2025 4:15 PM Jennifer Yin * QuestionAnswerDate of AssessmentAuthorTherapeutic Activity Time Entry14 05/03/2025 2:00 PM Charla Harden OT * Head, Ears, Eyes, Nose, and Throat (HEENT)QuestionAnswerDate of Assessment AuthorHead, Ears, Eyes, Nose, and Throat (WDL)X1 9:23 AM Beena Maritnes RNR EyeMildly impaired vgsqli2005/04/2025 9:23 AM Beena Martines RNL Eye Mildly impaired dniwkk1805/04/2025 9:23 AM Beena Martines RNR EarMildly impaired hsqjzpq7505/04/2025 9:23 AM EDTSimone, Beena, RNL EarMildly impaired sesyqkr8005/04/2025 9:23 AM Beena Martines RNNoseIntact05/02/2025 8:00 AM Little Case RNThroatIntact05/02/2025 8:00 AM Little Lay, RNTongue [place];Moist05/02/2025 8:05 PM Kannan Mack, SALMucous Membrane(s) Moist;[place];Wpxhkn9405/03/2025 8:16 AM Daisy Reinoso RNHead and Face Akrxfhuovmi74/15/2025 8:05 PM Kannan Mack RNNeckSymmetrical05/02/2025 4:00 AM Linsey Ho RNLipsSymmetrical;Vyewyz3205/02/2025 8:00 AM GWENT Little Hector, SAL * QuestionAnswerDate of AssessmentAuthorMAP (mmHg)7505/04/2025 12:07 PM Beena Alcaraz, SAL * Short Portable Mental StatusQuestionAnswerDate of AssessmentAuthorWhat are the date, month, year? 9:23 AM Beena Martines RNWhat is the day of the week? 9:23 AM Beena Martines RNWhat is the name of this place? 9:23 AM Beena Martines RNWhat is your phone number?0 05/04/2025 9:23 AM Beena Martines RNHow old are you? 9:23 AM Beena Alcaraz RNWhen were you born? 9:23 AM Beena Martines RNWho is the current president? 9:23 AM Beena Martines RNWho was the president before him? 9:23 AM Beena Martines RNWhat was your mother's maiden name? 9:23 AM Beena Martines RNCan you count backward from 20 by 3s? 9:23 AM Beena Martines RNShort Portable Mental Ptxmo170 9:23 AM Beena Martines RN * Fall Risk LevelQuestionAnswerDate of AssessmentAuthorMobility zoneModerate (Yellow Zone)05/04/2025 9:23 AM Beena Martines RNMorse fall risk zone Moderate (Yellow Zone)05/04/2025 9:23 AM Beena Martines RNMental status questionaire zoneModerate (Yellow Zone)05/04/2025 9:23 AM Beena Martines RN * QuestionAnswerDate of AssessmentAuthorPulse rate from Plethysmogram (bpm)87 05/03/2025 8:09 AM Daisy Reinoso RN * HearingAnswerDate of NeceprclwpIyopwpXRD50/15/2025 2:22 PM Daron Mao, PT * Skin IntegrityAnswerDate of AssessmentAuthorPatient had yellow/pinkish bruising which was warm to the touch on right forearm and wrist from where patient had an IV or catheter line. All other visible areas were intact. 05/03/2025 2:24 PM Charla Harden OT * EdemaAnswerDate of AssessmentAuthorMild swelling on right forearm which was elevated on a pillow at end of session. Patient was askedif he wanted a small ice pack and he declined stating ice didn't really help yesterday when it was applied.05/03/2025 2:24 PM Charla Harden OT * Hand DominanceAnswerDate of EwxpdlphbzOwybimIoxsl27/15/2025 2:22 PM EDT Daron Trevino, PT * Skin Assessment Sign offQuestionAnswerDate of AssessmentAuthorDual Sign-off - Admission/TransferJudy RN05/02/2025 7:00 PM Vero Correia RNDual Sign- off - ShiftE. Krunal, SAL05/02/2025 8:00 AM EDTAndcaridad, Petrona Fitch new wounds identified on admission/transfer?No05/02/2025 7:00 PM Vero Correia RNProvider notified of new gvyvcMu1705/02/2025 7:00 PM Vero Correia RN * 6 Clicks (Mobility)QuestionAnswerDate of AssessmentAuthorHelp from another person climbing 3-5 steps with a rvkheod683/15/2025 2:10 PM Daron Mao, PTHelp from another person turning from your back to your side while in a flat bed without using yitvgyqx285/15/2025 2:10 PM Daron Mao, PTHelp from another person moving from lying on your back to sitting on the side of a flat bed without using fgwkfijg551/15/2025 2:10 PM EDLucia Duckworthyn, PTHelp from another person moving to and from a bed to a chair (including a wheelchair)3 05/02/2025 2:10 PM Daron Mao, PTHelp from another person standing up from a chair using your arms (e.g. wheelchair or bedside chair) 2:10 PM Daron Mao, PTHelp from another person to walk in hospital room 2:10 PM Daron Mao, PTMobility 6 Clicks T-Flyqz2316/15/2025 2:10 PM Daron Mao, PT * QuestionAnswerDate of JpqtsgfkyiZlkjhjFaX14262/17/2025 12:07 PM Beena Martines RN * QuestionAnswerDate of OleaakejkkBoelkuGH376/6505/04/2025 12:07 PM Beena Martines RNTemp98.410 12:07 PM Beena Martines RNTemp srcTemporal 05/04/2025 12:07 PM Beena Martines RNPulse9505/04/2025 12:07 PM Beena Martines RNResp2105/04/2025 12:07 PM Beena Martines RNHeart Rate SourceMonitor 05/04/2025 12:07 PM EDTSimone, Beena, RNBP LocationLeft wrist05/04/2025 12:07 PM Beena Martines, RNBP BlscevAngmwjtiz76/17/2025 12:07 PM Beena Martines, RNPatient DxppdaoqGsxuswt35/17/2025 12:07 PM Beena Martines, RN * QuestionAnswerDate of AssessmentAuthorLevel of WrwgagysubgygHhkag55/17/2025 9:23 AM Beena Martines RNCognitionFollows commands;Appropriate judgement;Appropriate safety ftehgvuhe11/17/2025 9:23 AM Beena Martines RN EjyjjcQnomv88/15/2025 8:05 PM Kannan Mack, RNL Pupil Reaction Zehrvketdpc50/15/2025 8:00 AM Little Lay, RNL Pupil Size (mm)5 05/02/2025 8:00 AM Magdiel Layin, RNR Pupil NlyiqabfIfxia27/15/2025 8:00 AM Magdiel Layin, RNR Pupil Size (mm) 8:00 AM Magdiel Layin, RNLUE Motor ResponseResponds to axvlcjxh77/17/2025 9:23 AM EDBeena Guevara, RNLUE SensationFull tjctygazy78/15/2025 8:00 AM Rosanne, Little, RNLLE Motor ResponseResponds to nznwuawt32/17/2025 9:23 AM Beena Martines, RNLLE SensationFull seebuqvtu46/15/2025 8:00 AM Magdiel Layin, RNRUE Motor ResponseResponds to lvoeiqlm76/17/2025 9:23 AM Beena Martines, RNRUE SensationFull feuzgpmtu65/15/2025 8:00 AM Rosanne, Little, RNRLE Motor ResponseResponds to otrzrqck49/17/2025 9:23 AM EDBeena Guevara, RNRLE SensationFull crethuqqx95/15/2025 8:00 AM Magdiel Layin, RNL Corneal DdoxskNegblshm40/13/2025 4:00 PM Marta Andrade, RNCough ReflexPresent 04/30/2025 4:00 PM Marta Andrade, RNGag OenxjcZocfcbo97/13/2025 4:00 PM EDT Marta Aparicio, RNR Corneal DhcdpfGurphm26/13/2025 4:00 PM Marta Andrade, RN L Blink HapvxpLpexqr74/13/2025 4:00 PM Marta Andrade, RNR Blink Reflex Vcyokl0304/30/2025 4:00 PM Marta Andrade, RNR Hand TetgmLzrqaelu73/17/2025 9:23 AM Beena Martines, RNL Hand LqclsHqqutcxt29/17/2025 9:23 AM Beena Martines, RNR Foot MnxlcnuqkkxyYznrqzdq00/17/2025 9:23 AM Beena Martines, RNL Foot FqkwlwoeahrgEphnrwbd46/17/2025 9:23 AM Beena Martines, RNR Foot Plantar GblsdknTysibrjj17/17/2025 9:23 AM Beena Martines, RNL Foot Plantar Flexion Btfohdbs56/17/2025 9:23 AM Beena Martines, RNR Pupil OntykDmnzd48/15/2025 8:00 AM Little Lay, RNL Pupil YpypyGnyh78/15/2025 8:00 AM Little Lay, RNNeuro WgzlsiccSbmsunzyt60/16/2025 8:50 PM Myesha Pugh, RNPupil OxiwienkvbEih78/15/2025 8:00 AM Little Lay, RNHand Grasp/Motor Function/Sensation AssessmentGrasp;Dorsiflexion;Plantar flexion;Motor response;Mkapiiyms06/17/2025 9:23 AM Beena Martines, RNFacial Symmetry Kbruvygjlfl96/15/2025 8:05 PM Kannan Mack RN * QuestionAnswerDate of AssessmentAuthorBilateral Breath JclptfTqxkn13/17/2025 9:23 AM Beena Martines, RNR Breath SoundsLower;Diminished;Clear05/02/2025 4:00 AM Linsey Ho, RNL Breath MhwwbdHpgbi66/15/2025 4:00 AM Linsey Conway RNRespiratory ClvmjyaAjldva50/17/2025 9:23 AM Beena Martines RNChest FxneomnvpfJrrfhggpxby26/17/2025 9:23 AM Beena Martines RNCough Dry05/03/2025 8:16 AM Daisy Reinoso, RNSputum VwhynbPbzov15/13/2025 4:00 AM Neftaly Owusu, RNSputum PcbftWlvwg56/13/2025 4:00 AM Neftaly Owusu, RNSputum ConsistencyFrothy;Thick04/29/2025 4:00 PM Tiffanie Linder RN Respiratory FtaawwEusqkevlm61/17/2025 9:23 AM Beena Martines RNRespiratory Effort CharacteristicsAbdominal muscle use04/27/2025 4:00 PM Westley Rowland RNRespiratory Depth/OkmsaqXsehivy92/17/2025 9:23 AM Beena Martines RNDyspnea OccurrenceWith qlyuuvrq25/16/2025 8:50 PM Myesha Pugh RN * QuestionAnswerDate of AssessmentAuthorCardiac WtknyfRVT35/17/2025 9:23 AM EDT Beena Price RNEctopyPremature ventricular auiqaoebsdah42/16/2025 8:50 PM EDT Myesha Schultz RNEctopy FgnbxpiinCgpdaalgkp11/16/2025 8:50 PM Myesha Pugh RNCardiac HcecvtvcfaCotywij11/17/2025 9:23 AM Beena Martines RN Ship Wirer FevpnqFm28/17/2025 9:23 AM Beena Martines RNTelemetry Box Number [id number] 4:00 AM Linsey Ho RNJugular Venous Distention (JVD)No05/04/2025 9:23 AM Beena Martines RNCardiac SymptomsNone 05/03/2025 8:16 AM Daisy Reinoso RNHeart SoundsS1, S205/04/2025 9:23 AM Beena Martines RN * QuestionAnswerDate of AssessmentAuthorPacemaker McwmDqlehhcuj34/16/2025 8:16 AM Daisy Reinoso RN * GastrointestinalQuestionAnswerDate of AssessmentAuthorPassing FlatusYes 05/04/2025 9:23 AM Beena Martines RNAbdominal TendernessNo guarding 05/02/2025 8:05 PM Kannan Mack RNBowel Sounds (All Quadrants)Active 05/04/2025 9:23 AM Beena Martines RNGastrointestinal (WDL)WDL1 9:23 AM Beena Martines RNAbdomen InspectionSoft;Mgqfxpe4905/04/2025 9:23 AM Beena Alcaraz RNGastrointestinal VblutwmfKut69/15/2025 8:00 AM Little Lay RNNausewilda Precipitating FactorsOther (Comment)04/25/2025 9:02 AM Tiffanie Linder RNBowel SoundsAll nekwmhmvc16/17/2025 9:23 AM Beena Martines RN * Peripheral VascularQuestionAnswerDate of AssessmentAuthorPeripheral Vascular (WDL)WDL1 9:23 AM Beena Martines RNGeneralized EdemaNon-pitting 05/03/2025 8:16 AM Daisy Reinoso RNCapillary RefillLess than/equal to 2 seconds (All extremities)05/04/2025 9:23 AM Beena Martines RNPulsesRight radial;Left radial;Right posterior tibial;Left posterior tibial;Right pedal;Left pedal1 9:23 AM Beena Martines RNCyanosisNone1 8:05 PM Kannan Mack RNEdemaGeneralized05/03/2025 8:16 AM Daisy Reinoso RNPeripheral Vascular Additional AssessmentsRight upper extremity;Right lower extremity;Left upper extremity;Left lower uwrnuulne57/15/2025 4:00 AM Linsey Ho RN * RUE Neurovascular AssessmentQuestionAnswerDate of AssessmentAuthorRUE Edema Other (Comment)04/20/2025 8:05 AM Yamila Alarcon RNRUE Capillary Refill Less than/equal to 2 mwctxpk2605/02/2025 8:05 PM Kannan Mack RNRUE XywpcDsjk99/16/2025 8:50 PM Myesha Pugh RNRUE Temperature/Moisture Warm05/03/2025 8:50 PM Myesha Pugh RN Brachial Pulse+ 4:00 AM Raffy Ahn RN Radial Pulse+ 9:23 AM Beena Martines RNRight Ulnar Pulse+ 8:00 AM Little Lay RN * LURobert Neurovascular AssessmentQuestionAnswerDate of AssessmentAuthorLUE Capillary RefillLess than/equal to 2 ctmlnvc9705/02/2025 8:05 PM Kannan Mack RNLUE ColorAppropriate for rmnvsudyt02/15/2025 8:05 PM Kannan Mack RNLUE Temperature/MoistureWarm;Dry05/02/2025 8:05 PM Kannan Mack RNLeft Radial Pulse+ 9:23 AM Beena Martines RN * RLE Neurovascular AssessmentQuestionAnswerDate of AssessmentAuthorRLE Capillary RefillLess than/equal to 2 xwzkmup2205/03/2025 8:16 AM Daisy Reinoso RNRLE ColorAppropriate for pbggtphop30/16/2025 8:16 AM Daisy Reinoso RNRLE Temperature/MoistureWarm;Dry05/03/2025 8:16 AM Daisy Reinoso RNRight Posterior Tibial Pulse+ 9:23 AM Beena Martines RNRight Pedal Pulse+ 9:23 AM Beena Martines RNRLE DVT Prophylaxis Sequential compression foupnw6205/02/2025 4:00 AM Linsey Ho RN * LLE Neurovascular AssessmentQuestionAnswerDate of AssessmentAuthorLLE Capillary RefillLess than/equal to 2 reyakdb5305/03/2025 8:16 AM Daisy Reinoso RNLLE ColorAppropriate for finpibume13/16/2025 8:16 AM Daisy Reinoso RNLLE Temperature/MoistureWarm;Dry05/03/2025 8:16 AM Daisy Reinoso RNLeft Posterior Tibial Pulse+110 9:23 AM Beena Martines RNLeft Pedal Pulse+210 9:23 AM Beena Martines RNLLE DVT Prophylaxis Sequential compression uxdhgm1205/02/2025 4:00 AM Linsey Ho RN * MusculoskeletalQuestionAnswerDate of AssessmentAuthorRUEFull movement 05/02/2025 8:05 PM Kannan Mack RNRLEFull ziayhgbu01/15/2025 8:05 PM Kannan Mack RNLUEFull uxhreigs30/15/2025 8:05 PM Kannan Mack RNLLEFull idyalsan53/15/2025 8:05 PM Kannan Mack RNMusculoskeletal (WDL)WDL1 9:23 AM Beena Martines RN * PsychosocialQuestionAnswerDate of AssessmentAuthorPatient Behaviors/Mood Calm;Wkpypoqpnzj62/15/2025 8:05 PM Kannan Mack RNNeeds Expressed Gevczjoh81/15/2025 8:05 PM Kannan Mack RNPsychosocial (WDL)WDL 05/04/2025 9:23 AM Beena Martines RNAbillashell to Express FeelingsAble to wgjbbwd9905/02/2025 8:05 PM Kannan Mack RNAbility to Express NeedsAble to bvfhptz3305/02/2025 8:05 PM Kannan Mack RNAbility to Express ThoughtsAble to zgpfhdi2305/02/2025 8:05 PM Kannan Mack RNAbility to Understand GnwjgqWdcyxhttxvj35/15/2025 8:05 PM Kannan Mack RN * QuestionAnswerDate of AssessmentAuthorLast Ting5484538/17/2025 12:48 PM EDT Luis Negrete, PCTUrine ColorYellow/straw05/04/2025 12:48 PM EDTCLuis chin, PCTUrine XabvnblaghSzcpp11/17/2025 12:48 PM EDTCLuis chin, PCT Urine OdorNo odor05/04/2025 12:48 PM EDTCLuis chin, PCTStool Color Brown;Tan05/04/2025 12:48 PM EDLuis Faustin, PCTStool AppearanceWatery 05/04/2025 12:48 PM EDLuis Faustin, PCTBowel EqwgdnbrfjheWt14/17/2025 12:48 PM EDTCLuis chin, PCT * Sherman Fall RiskQuestionAnswerDate of AssessmentAuthorHistory of Falling, Immediate or Within 3 Cyrlga434 9:23 AM Beena Martines RNSecondary Kaucbnhen5645/17/2025 9:23 AM Beena Martines, RNAmbulatory Nie560 9:23 AM Beena Martines RNIntravenous Therapy/Heparin Lkhs529 9:23 AM Beena Martines RNGait/Qgqqtocrtole7803/17/2025 9:23 AM Beena Martines RN Mental Dtocic768/17/2025 9:23 AM Beena Martines RNMorse Fall Risk Score25 05/04/2025 9:23 AM Beena Martines RN * Christiano ScaleQuestionAnswerDate of AssessmentAuthorBraden No Risk Interventions Continue to assess patient according to level of care05/04/2025 9:23 AM Beena Alcaraz RNBraden Mild InterventionsOff loaded ankles and feet;Applied barrier ointment;3 or less layers under the patient (i.e sheets,brief, taps, etc);Applied Mepilex on bony prominences;Reposition every 2 hours (make sure to document turns under activity tab);Evaluate nutritional status;Maintained bed at no more than 30 hivzkyj4505/03/2025 8:50 PM Myesha Pugh RN Sensory Nfzhiwcvulw737/17/2025 9:23 AM Beena Martines RNMoisture31 9:23 AM Beena Martines, JDCobdfsjh352/17/2025 9:23 AM Beena Martines RN Udqehjze863/17/2025 9:23 AM Beean Martines OGPvnmhvftr896/17/2025 9:23 AM Beena Martines, RNFriction and Tjxgr585 9:23 AM Beena Martines RN Christiano Scale Hzzxf458405/04/2025 9:23 AM Beena Martines RN * Charting TypeQuestionAnswerDate of AssessmentAuthorCharting TypeShift grdwsiigtw57/17/2025 9:23 AM Beena Martines RN * RLE AssessmentQuestionAnswerDate of AssessmentAuthorRLE AssessmentWFL 05/03/2025 2:33 PM Charla Harden, OT * LLE AssessmentQuestionAnswerDate of AssessmentAuthorLLE AssessmentWFL 05/03/2025 2:33 PM Charla Harden, OT * ProprioceptionQuestionAnswerDate of AssessmentAuthorProprioceptionNo apparent efdjogfl18/15/2025 2:36 PM Daron Mao, PT * CognitionQuestionAnswerDate of AssessmentAuthorDeficitsFully aware of deficits 05/04/2025 10:54 AM Ashley Vela UZSEEzrsevrzlgutpItvnpg08/17/2025 10:54 AM Ashley Vela, COTAOrientation LevelOriented X41 10:54 AM EDT Ashley Acosta COTAOverall Cognitive WvkagoJYY46/17/2025 10:54 AM Ashley Vela, GREGGAArousal/AlertnessAppropriate responses to vyfgnui3905/04/2025 10:54 AM Ashley Vela, COTAAttention SpanAppears bauopd9605/04/2025 10:54 AM EDT Ashley Acosta, COTAMemoryAppears selqgs7005/04/2025 10:54 AM Ashley Vela COTAFollowing CommandsFollows all commands and directions without difficulty 05/04/2025 10:54 AM Ashley Vela COTASafety JudgmentGood awareness of safety acizkzgcyxy61/17/2025 10:54 AM Ashley Vela COTAAwareness of Errors Good awareness of errors made05/04/2025 10:54 AM Ashley Vela COTAProblem SolvingAble to problem solve fwcnupvquuajg28/17/2025 10:54 AM Ashley Vela GALAVIZ * SensationQuestionAnswerDate of AssessmentAuthorLight TouchNo apparent deficits 05/02/2025 2:36 PM Daron Mao, PTSensation CommentsDenies numbness/fafpyuth19/15/2025 2:36 PM Daron Mao, PT * PerceptionQuestionAnswerDate of AssessmentAuthorInattention/NeglectAppears mahjtn0505/02/2025 2:36 PM Daron Mao, PTInitiationAppears intact 05/02/2025 2:36 PM Daron Mao, PTMotor PlanningAppears hoyjju4305/02/2025 2:36 PM Daron Mao, PTPerseverationNot lzyspnk9405/02/2025 2:36 PM EDT Daron Trevino, PT * Vision - Basic AssessmentQuestionAnswerDate of AssessmentAuthorCurrent Vision Wears glasses only for qbzmgrc4605/02/2025 2:24 PM Daron Mao, PT * Patient's Stated Pain GoalAnswerDate of AssessmentAuthorNo pain05/04/2025 3:45 PM Daisy Reinoso, RN * Cultural Requests During HospitalizationAnswerDate of AssessmentAuthornone 04/30/2025 8:00 AM Renée Morrow, SAL * Spiritual Requests During HospitalizationAnswerDate of AssessmentAuthornone 04/30/2025 8:00 AM Renée Morrow, RN * RepositionedAnswerDate of AssessmentAuthorTurns self05/04/2025 2:00 PM EDT Beena Price RN * QuestionAnswerDate of AssessmentAuthorArterial Line MAP 1 (mmHg)5704/29/2025 8:00 AM Tiffanie Linder RNArterial Line BP 193/6604/29/2025 8:00 AM Tiffanie Linder RN * GenitourinaryQuestionAnswerDate of AssessmentAuthorUrinary FrequencyAdequate 05/04/2025 9:23 AM Beena Martines RNMale GejxefcycMxuzcg28/15/2025 8:05 PM Kannan Mack RNGenitourinary (WDL)WDL1 9:23 AM Beena Martines RNGenitourinary TcziyccwRoph37/15/2025 8:05 PM Kannan Mack RN Suprapubic PwawqfrjqvTo91/15/2025 8:05 PM Kannan Mack, SAL * Patient MonitoringQuestionAnswerDate of AssessmentAuthorFrequency of Checks Twice per hour, enqjihto08/17/2025 9:23 AM Beena Martines RN * Prior FunctionQuestionAnswerDate of AssessmentAuthorPrior Functional Mobility Independent without kxwdxs9005/02/2025 2:21 PM Daron Mao, PTHistory of FallsStates only fall was here in hospital on 04/23 2/2 bed height unexpectedly high. Denies any other recent falls05/02/2025 2:21 PM Daron Mao, PTLevel of IndependenceIndependent with ADLs and functional transfers;Independent with homemaking with znstfwsozi69/15/2025 2:21 PM EDT Daron Trevino, PTReceives Help HzybLncvfd60/15/2025 2:21 PM Daron Mao, PTADL ZcjcyxpuhoPimgfhixgqd02/15/2025 2:21 PM Daron Mao, PT Homemaking QwnkirbnqjJnvqodkipmn63/15/2025 2:21 PM Daron Mao, PT * ADLQuestionAnswerDate of AssessmentAuthorBathing RhmdkvskvjGfzexjc47/15/2025 2:29 PM Diana Morales OTGrooming AssistanceStand by05/02/2025 2:29 PM Diana Morales OTBathing DeficitRight lower leg including foot;Left lower leg including foot05/02/2025 2:29 PM Diana Morales OTUE Dressing VtgpfycvdoZzvdipo67/15/2025 2:29 PM Diana Morales OTLE Dressing BbiywofyxxAosrkvf78/15/2025 2:29 PM Diana Morales OTLE Dressing DeficitDon/doff R sock;Don/doff L sock;Supervision/safety;Increased time to wjjksifv86/15/2025 2:29 PM Diana Morales OTToileting Assistance with NdbtsrIeylmui41/15/2025 2:29 PM Diana Morales OT * Activity ToleranceQuestionAnswerDate of AssessmentAuthorAmbulation commentsSBA during functional ambulation from EOB<>in-room sink with RW. No LOB noted. 05/04/2025 10:54 AM Ashley Vela COTAStage II (METs 1.4-2.0) - Sitting5-10 mins05/03/2025 2:43 PM Charla Harden OTStage III (METs 2.0-3.0) - Sitting to Lsokfrlp46-30 mins05/04/2025 10:54 AM Ashley Vela COTAEnduranceStage III05/03/2025 2:43 PM Charla Harden OTActivity Tolerance CommentsPt demo'd no SOB or increased fatigue during functional ambulation or dyn standing tasks (ADLs)05/04/2025 10:54 AM Ashley Vela COTA * RUE AssessmentQuestionAnswerDate of AssessmentAuthorRUE KkcvsrckzbI93/16/2025 2:33 PM Charla Harden OT * LUE AssessmentQuestionAnswerDate of AssessmentAuthorLUE AssessmentWFL 05/03/2025 2:33 PM Charla Harden OT * PrecautionsQuestionAnswerDate of AssessmentAuthorMedical Precautionsfall risk;telemetry;bed alarm;chair alarm;Muqnysxn54/17/2025 10:54 AM Ashley Vela COTA * PlanQuestionAnswerDate of AssessmentAuthorPT PlanSkilled PT05/02/2025 12:39 PM Daron Mao, PTTreatment/InterventionsFunctional transfer training;LE strengthening/ROM;Endurance training;Bed mobility;Gait training;Balance pubteajy52/15/2025 12:39 PM Daron Mao, PTPT Frequency5 times per week 05/02/2025 12:39 PM Daron Mao, PTPT - Discharge Recommendations Placed Yes05/02/2025 12:39 PM Daron Mao, PTPT Discharge Recommendations Patient is able to return to prior living fmeppzygcly83/15/2025 12:39 PM EDT Daron Trevino, PT * Hand FunctionQuestionAnswerDate of AssessmentAuthorGross GraspFunctional 05/03/2025 2:33 PM Charla Harden, IOVslypvdxjytiBtvnnntyik14/16/2025 2:33 PM Charla Harden OT * PlanQuestionAnswerDate of AssessmentAuthorLevel of assist1 yngupm1205/04/2025 10:54 AM Ashley Vela COTAEquipment Recommendedrolling jdkngp2805/03/2025 2:49 PM Charla Harden OTTreatment InterventionsADL retraining;Patient/family training;Equipment evaluation/education;Functional transfer training;Endurance training;Compensatory technique education 05/03/2025 2:49 PM Charla Harden OTOT Frequency5 times per week05/03/2025 2:49 PM Charla Harden OTOT - Discharge Recommendations PlacedYes 05/03/2025 2:49 PM Charla Harden OTOT PlanSkilled OT05/03/2025 2:49 PM Chalra Harden OTOT Discharge RecommendationsPatient is able to return to prior living gpefsahtdqn50/16/2025 2:49 PM Charla Harden, OT * Safe EnvironmentQuestionAnswerDate of AssessmentAuthorArm Bands OnID;Fall 05/04/2025 9:23 AM EDTSimone, Beena, RNSide Rails/Bed Safety2/410 9:23 AM Beena Martines RNBed GlispgZjc75/17/2025 9:23 AM Beena Martines RNThe Patient's Environment is OkpfGiz99/17/2025 9:23 AM Beena Martines RN * High Fall Risk InterventionsQuestionAnswerDate of AssessmentAuthorHigh Fall Risk YdbqcvmvrsvodYnolngpd33/17/2025 9:23 AM Beena Martines RN * MobilityQuestionAnswerDate of AssessmentAuthorProvider LdficvxqMms19/16/2025 8:50 PM Myesha Pugh AQNbjothjrtd18/17/2025 9:23 AM Beena Martines RNActivity PerformedResting in bed05/04/2025 9:23 AM Beena Martines RN Distance Ambulated (ft)1764504/22/2025 6:00 PM Kelly Kelly RNAmbcarlos ResponseTolerated fairly well05/03/2025 8:16 AM Daisy Reinoso RNLevel of AssistanceModified independent, requires aide device or extra time05/04/2025 9:23 AM Beena Martines RNHead of Bed ElevatedSelf ziwblaqma64/17/2025 9:23 AM Beena Martines RNHeels/FeetHeels elevated off bed05/04/2025 9:23 AM EDT Beena Price RNRange of MotionActive;All nncwhbyhlwv67/17/2025 9:23 AM EDBeena Chaudhary RNAnti-Embolism DevicesBilateral;Sequential compression devices, below knee05/04/2025 9:23 AM Beena Martines RNAnti-Embolism InterventionOff 05/04/2025 9:23 AM Beena Martines RNPatient's mobility zoneZone 9:23 AM Beena Martines RNPositioning FrequencyAble to turn self05/04/2025 9:23 AM Beena Martines RN * HygieneQuestionAnswerDate of AssessmentAuthorLinen changeTotal linen change 05/03/2025 4:28 PM Angie Canales NASkin CarePer self05/03/2025 8:16 AM Daisy Reinoso RNHygieneBathed;Mishel care05/04/2025 11:33 AM Ashley Vela COTAOral CareTeeth brushed;Mouth zvciax0305/04/2025 11:33 AM Ashley Vela COTALevel of AssistanceMinimal nxjcnj1305/04/2025 11:33 AM Ashley Vela COTAIs Patient Total Care?No05/04/2025 11:33 AM Ashley Vela COTA Incontinence Protective DevicesAbsorbent pad05/04/2025 9:23 AM Beena Martines RNCHG (Chlorhexidine Gluconate) UqnvpawZlta30/17/2025 11:33 AM Ashley Vela COTA * PrecautionsQuestionAnswerDate of AssessmentAuthorPrecautions Aspiration;Fall;Oafdhggj84/17/2025 9:23 AM Beena Martines RN * Family/Significant Other CommunicationQuestionAnswerDate of AssessmentAuthor Family/Significant Other AklowuIdresje61/09/2025 8:00 PM Raffy Ahn RN * Comfort and Environment InterventionsQuestionAnswerDate of AssessmentAuthor Special MattressLow air loss and alternating pressure wkclsk1305/02/2025 4:00 AM Linsey Ho RNComfortRepositioned;Lotion (Comment);Powder (Comment);Gown jmtvyjy6305/04/2025 11:33 AM Ashley Vela COTAAdditional Comfort/Environmental InterventionsSpecial mattress;TAPS1 4:00 AM Linsey Conway RN * Safety Equipment at BedsideQuestionAnswerDate of AssessmentAuthorSafety Equipment at KtwtsggXwjqkun93/15/2025 8:00 AM Little Lay RN * ADL ScreeningQuestionAnswerDate of AssessmentAuthorDo you snore or wake up gasping for air?No04/19/2025 10:46 AM Karrie Layton RNCan you bring in your CPAP/BiPAP from home?N/A1 10:46 AM Karrie Layton RNPatient's Vision Adequate to Safely Complete Daily LxhbuhkvpfJiw17/02/2025 10:46 AM Karrie Layton RNPatient's Judgment Adequate to Safely Complete Daily ActivitiesYes 04/19/2025 10:46 AM Karrie Layton RNPatient's Memory Adequate to Safely Complete Daily JrklzovepcCov81/02/2025 10:46 AM Karrie Layton RNPatient Able to Express Needs/CmqhuntKry33/02/2025 10:46 AM Karrie Layton RNDressing Etqrvsqlwyk84/02/2025 10:46 AM Karrie Layton RNOAAiaezxtnXzuifgvizhv60/02/2025 10:46 AM Karrie Layton IUCyshetpVcaxslgyngm64/02/2025 10:46 AM Karrie Layton RNRNJouefhrWxfbtbnurrr54/02/2025 10:46 AM Karrie Layton RNToileting Xxlwhxnesuy61/02/2025 10:46 AM Karrie Layton RNIn/Out BedIndependent 04/19/2025 10:46 AM Karrie Layton RNWalks in GcolQlrgbcbeeny54/02/2025 10:46 AM Karrie Layton RNWeakness of EdctEzow65/02/2025 10:46 AM Karrie Layton RNWeakness of Arms/XdjooLrmb99/02/2025 10:46 AM Karrie Layton RNHearing - Right PbiEnphdennbe93/02/2025 10:46 AM Karrie Layton RNHearing - Left Ear Gcwpvvdqqq65/02/2025 10:46 AM Karrie Layton RN * ConsultsQuestionAnswerDate of AssessmentAuthorSpiritual Care Consult NeededNo 04/19/2025 10:40 AM Karrie Layton RNSocial Services Consult NeededNo 04/19/2025 10:40 AM Karrie Layton RN * Therapy ConsultsQuestionAnswerDate of AssessmentAuthorPT Evaluation Needed1 04/19/2025 10:46 AM Karrie Layton RNOT Evaluation Lozqgx638 10:46 AM Karrie Layton RNSLP Evaluation Roqlhf071/02/2025 10:46 AM Karrie Layton RN * Assistive DevicesQuestionAnswerDate of AssessmentAuthorAssistive DevicesOther (Comment)04/19/2025 10:46 AM Karrie Layton RN * Provider NotificationQuestionAnswerDate of AssessmentAuthorProvider Role Attending zaejlrzsp38/16/2025 10:27 AM Daisy Reinoso RNCommunication CommentsMag of 1.81 6:05 AM Kannan Mack RNProvider NameDr Mwgcad6305/03/2025 10:27 AM Daisy Reinoso RNMethod of CommunicationEpic Chat05/03/2025 10:27 AM Daisy Reinoso RNReason for CommunicationOther (Comment)05/03/2025 10:27 AM Daisy Reinoso RNResponseSee knmzae7805/03/2025 10:27 AM Daisy Reinoso RNShift GamfyLbtf95/06/2025 3:35 AM Reginald Martinez RNNotification Fbhw8982245/16/2025 10:27 AM Daisy Reinoso RNFall Injury TypeSkin tear;Lhajuhbtdu88/06/2025 3:35 AM Reginald Martinez RN * AM-PAC 6 ClicksQuestionAnswerDate of AssessmentAuthorTotal Score OT AMPAC21 05/04/2025 10:54 AM Ashley Vela, COTAToileting, which includes using the toilet,bedpan,or urinal? 10:54 AM Ashley Vela, COTAEating meals? 10:54 AM Ashley Vela, COTABathing(Including washing,rinsing,drying)? 10:54 AM Ashley Vela COTATaking care of personal grooming such as brushing teeth? 10:54 AM Ashley Vela, COTAPutting on and taking off regular lower body clothing? 10:54 AM Ashley Vela, COTAPutting on and taking off regular upper body clothing? 10:54 AM Ashley Vela, GALAVIZ * Fields Fall Risk InterventionsQuestionAnswerDate of AssessmentAuthor Fields Fall Risk BflhychwjkfndOyokwtwl74/17/2025 9:23 AM Beena Martines RN * Patient Requests Lesser Strength MedicationAnswerDate of AssessmentAuthor Patient Request for Lesser Psorztptpx93/16/2025 9:36 PM Myesha Pugh RN * OT Last VisitQuestionAnswerDate of AssessmentAuthorOT Received [id number] 05/04/2025 10:54 AM Ashley Vela COTA * PT AssessmentQuestionAnswerDate of AssessmentAuthorPT AssessmentPt is 69 y.o male presenting with the above impairments, limiting safe and IND mobility. Pt able totolerate within room ambulation distances, requiring increased time, effort, and CGA. Able to complete 5xSTS in 15.63 seconds indicating pt being at increased risk for falls. Pt would continue to benefit from skilled PT services throughout [facility] to address impairments and maximize safe and IND mobility.05/02/2025 1:55 PM Daron Mao PTPT Education/CommentsPT POC. Safety with oiknugnp12/15/2025 1:55 PM Daron Mao PTPrognosisGood 05/02/2025 1:55 PM Daron Mao, PTImpairmentsDecreased endurance;Impaired balance;Decreased mobility;Impaired hearing;Decreased skin eoabbmaav28/15/2025 1:55 PM Daron Mao, PTMedical Staff Made AwareYes 05/02/2025 1:55 PM Daron Mao PTEvaluation/Treatment TolerancePatient tolerated treatment well05/02/2025 1:55 PM Daron Mao, PT * Static Standing BalanceQuestionAnswerDate of AssessmentAuthorStatic Standing- Balance SupportRight upper extremity supported;Left upper extremity supported;With mxwovr9805/04/2025 10:54 AM Ashley Vela COTAStatic Standing- Level of AssistanceClose cyiiflhltgx75/17/2025 10:54 AM Ashley Vela COTA Static Standing-Comment/Number of MinutesStood by the chair when brief applied.05/03/2025 2:34 PM Charla Harden, OT * ToiletingQuestionAnswerDate of AssessmentAuthorToileting CommentsPatient had a male Purewick. Tubing was disconnected and patient stood to place brief underneath patient. Patient needed some assist fastening brief. Patient was encouraged to start using a urinal orwalking to bathroom with staff assist to incorporate more functional mobility and increase his independence with toileting.05/03/2025 2:37 PM Charla Harden OTToibaldeving Level of AssistanceMinimum irdotonebn24/16/2025 2:37 PM Charla Harden, CRUZ * GroomingQuestionAnswerDate of AssessmentAuthorGrooming Commentsto complete facial care05/04/2025 10:54 AM Ashley Vela COTAGrooming Where Assessed Standing wggoeosq73/17/2025 10:54 AM Ashley Vela COTAGrooming Level of MexhqzoszjViifa73/17/2025 10:54 AM Ashley Vela COTA * UE BathingQuestionAnswerDate of AssessmentAuthorUE Bathing Commentsto complete UBB1 10:54 AM Ashley Vela COTAUE Bathing Where AssessedSitting arkxnwup00/17/2025 10:54 AM Ashley Vela, COTAUE Bathing Level of GvammgcbnmVnmku10/17/2025 10:54 AM Ashley Vela COTA * LE BathingQuestionAnswerDate of AssessmentAuthorLE Bathing Commentsto complete LBB & mishel-dmndesq1105/04/2025 10:54 AM EDAshley Moore, COTALE Bathing Where AssessedStanding sinkside;Sitting rdnpovms64/17/2025 10:54 AM Ashley Vela COTALE Bathing Level of CzfqmuzaqhPhmqe63/17/2025 10:54 AM Ashley Vela COTA * UE DressingQuestionAnswerDate of AssessmentAuthorUE Dressing Commentsto doff/don gowns05/04/2025 10:54 AM Ashley Vela COTAUE Dressing Where AssessedSitting in chair05/04/2025 10:54 AM Ashley Vela COTAUE Dressing Level of QkmwuqgeucOuzye67/17/2025 10:54 AM Ashley Vela COTA * LE DressingQuestionAnswerDate of AssessmentAuthorLE Dressing Commentsto doff/don B/socks1 10:54 AM Ashley Vela COTALE Dressing Where AssessedSitting in chair05/04/2025 10:54 AM Ashley Vela COTALE Dressing Yes05/03/2025 2:37 PM Charla Harden OTSock Level of AssistanceSetup 05/04/2025 10:54 AM Ashley Vela COTA * Dynamic Standing BalanceQuestionAnswerDate of AssessmentAuthorDynamic Standing Balance-Level of AssistanceClose azuhsfemaos82/17/2025 10:54 AM Ashley Vela COTADynamic Standing-CommentsSBA for safety during LBB tasks at sink. 05/04/2025 10:54 AM Ashley Vela COTADynamic Standing-Balance SupportWith device;Unilateral upper extremity jgideybdn98/17/2025 10:54 AM Ashley Vela COTADynamic Standing-BalanceForward lean05/03/2025 2:34 PM EDT Charla Yusuf OT * Dynamic Sitting BalanceQuestionAnswerDate of AssessmentAuthorDynamic Sitting Balance-Level of AssistanceDistant fitgucqtpjm58/17/2025 10:54 AM Ashley Vela COTADynamic Sitting-CommentsPatient participated in LB dressing while sitting in chair.05/03/2025 2:34 PM Charla Harden OTDynamic Sitting- Balance SupportUnilateral upper extremity supported;Feet bfinodejw97/17/2025 10:54 AM EDTGray, Ashley, COTADynamic Sitting-BalanceLateral lean;Forward lean;Reaching for wiibihz1205/04/2025 10:54 AM Ashley Vela COTA * AmbulationQuestionAnswerDate of BbgqbctbkwUoxpwmKpsihwbmxlRoh08/15/2025 2:05 PM Daron Mao, PT * StairsQuestionAnswerDate of BbaecvkkquWqlcrbGeohzgSw07/15/2025 2:05 PM EDT Daron Trevino, PT * CoordinationQuestionAnswerDate of AssessmentAuthorMovements are Fluid and VrjvwnnfqnuEst52/15/2025 2:36 PM Daron Mao, PT * Other ActivityQuestionAnswerDate of AssessmentAuthorOther Activity 1Pt in recliner post session with call light & needs accessible. Chair alarm fduwfedgw33/17/2025 10:54 AM Ashley Vela COTA * GeneralQuestionAnswerDate of AssessmentAuthorOT DiagnosisDecreased indepednence in functional tasks 2o chest pain.05/02/2025 2:17 PM EDT Diana Beltran, OTPatient Sizvvpu75jxP presents as t/f from OSH with chest pain radiating to neck and back. Pt hypotensive. Found tohave a pericardial effusion suggestive of tamponade. Had paracentesis, with drain placed which has since been removed. On 04/23 pt fell out of hospital bed, reports the height was left up, sit head. Negative for any injuries. Pt developed LINDA, was t/f to MICU for CRRT.05/02/2025 2:17 PM Diana Morales, OT * Functional Standing ToleranceQuestionAnswerDate of AssessmentAuthorTime2-3 min xmzuotrxea13/17/2025 10:54 AM Ashlye Vela COTAActivityADL routine at sink 05/04/2025 10:54 AM Ashley Vela COTAFunctional Standing Tolerance CommentsPt stood intermittently to complete ADL tasks wit no s/s or c/o increased fatigue or SOB.05/04/2025 10:54 AM Ashley Vela COTA * GeneralQuestionAnswerDate of AssessmentAuthorSubjective I'm supposed to go home today. 05/04/2025 10:54 AM Ashley Vela COTASession CommentsPatient participated in ADLS while seated in chair and performed two mobility tasks to improve his balance and endurance. Patient was encouraged to start going to the bathroom for toileting rather than using the Purewick to gradually improve his endurance.05/03/2025 2:24 PM Charla Harden OTFamily/Caregiver Present No05/04/2025 10:54 AM Ashley Vela COTAResponse to Previous Treatment Patient with no complaints from previous hytyjlb9005/04/2025 10:54 AM Ashley Vela COTATreatment Duration (min)391 10:54 AM Ashley Vela COTA * Surface 1AnswerDate of AssessmentAuthorLevel tile1 2:05 PM EDT Daron Trevino, PT * Device 1AnswerDate of AssessmentAuthorNo nublgf3005/02/2025 2:05 PM Daron Mao, PT * Assistance 1AnswerDate of AssessmentAuthorContact guard;Minimal verbal cues 05/02/2025 2:05 PM Daron Mao, PT * Quality of Gait 1AnswerDate of AssessmentAuthorPt demos short, shuffled steps throughout with no assistive device. Mild instability with no major LOB. 05/02/2025 2:05 PM Daron Mao, PT * Comments/Distance (ft) 1AnswerDate of EideoebtchBfhars50 ft05/02/2025 2:05 PM Daron Mao, PT * GeneralQuestionAnswerDate of AssessmentAuthorSubjective Maybe I like it rough. Session okay per RN. Pt supine in bed upon arrival, agreeable to PT session. Performed bed mobility, transfers, and amb this date. Returned to seated in recliner chair with call light/tray nearby. PT needs met prior to exit. RN aware of pt performance.05/02/2025 2:10 PM Daron Mao, PTPT DiagnosisDecreased functional jdlokfob30/15/2025 2:10 PM Daron Mao, PT Patient SummaryPt is 69 y.o male presenting to [facility] as a transfer from [place] with c/o chest pain radiating to neck [...] Pt developed LINDA requiring few days of CRRT.05/02/2025 2:10 PM EDT Daron Trevino, PT * Bed MobilityQuestionAnswerDate of AssessmentAuthorBed SykqcxebVw82/16/2025 2:40 PM Charla Harden OT * Bed Mobility 1QuestionAnswerDate of AssessmentAuthorBed Mobility Comments 1 Assist required to bring trunk pjnclww4005/04/2025 10:54 AM Ashley Vela COTABed Mobility From 3Nnmyws9005/04/2025 10:54 AM Ashley Vela COTABed Mobility Type 1To05/04/2025 10:54 AM Ashley Vela COTABed Mobility to 1 Short sit05/04/2025 10:54 AM Ashley Vela COTALevel of Assistance 1Minimum assistance;Minimal verbal cues05/04/2025 10:54 AM Ashley Vela COTA * TransfersQuestionAnswerDate of KcsrczewryHjdqgzUxjesqvjFyw92/16/2025 2:40 PM Charla Harden OT * Transfer 1QuestionAnswerDate of AssessmentAuthorTransfer Device 1rolling gdqzok2705/04/2025 10:54 AM Ashley Vela COTATrials/Comments 1Patient stood up 3 times during the session with very close supervision for safety. 05/03/2025 2:40 PM Charla Harden OTTransfer From 1Bed;Sit05/04/2025 10:54 AM Ashley Vela COTATransfer Type 1To05/04/2025 10:54 AM EDTGratiara Ashley, COTATransfer to 9Hmqyn0705/04/2025 10:54 AM EDTGraAshley menjivar COTATechnique 1Sit to stand05/04/2025 10:54 AM EDTGratiara Ashley, COTATransfer Level of Assistance 1Close gcymfoqejyx43/17/2025 10:54 AM EDTGratiara Ashley, GALAVIZ * Transfers 2QuestionAnswerDate of AssessmentAuthorTransfer Device 2rolling wxhfqc7905/04/2025 10:54 AM EDAshley Moore, COTATrials/Comments 2cue for hand placement with descent for mwetqc6205/04/2025 10:54 AM EDTGratiara Ashley, GALAVIZ Transfer From 0Rpnha73 10:54 AM GWENTGAshley zhang COTATransfer Type 2To 05/04/2025 10:54 AM GWENTGAshley zhang COTATransfer to 2Sit;Chair with arms 05/04/2025 10:54 AM Ashley Vela COTATechnique 2Stand to sit05/04/2025 10:54 AM EDTGAshley zhang COTATransfer Level of Assistance 2Close supervision 05/04/2025 10:54 AM EDTGratiara Ashley, GALAVIZ * Transfers 3QuestionAnswerDate of AssessmentAuthorTransfer Device 3rolling zhnxyy9005/04/2025 10:54 AM EDTGAshley zhang, COTATrials/Comments 3SBA during STS throughout ADL routine in stance at sink. Cues for safety.05/04/2025 10:54 AM EDTGratiara Ashley, COTATransfer From 1Lsqzq69 10:54 AM EDTGvicente Ashley, COTATransfer Type 3To and from05/04/2025 10:54 AM EDTGratiara Ashley, GALAVIZ Transfer to 3Sit;Chair without arms05/04/2025 10:54 AM EDTGratiara Ashley, GALAVIZ Technique 3Sit to stand;Stand to sit05/04/2025 10:54 AM EDTGray, Ashley, GALAVIZ Transfer Level of Assistance 3Close veownsiwptt81/17/2025 10:54 AM Ashley Vela COTA * Static Sitting BalanceQuestionAnswerDate of AssessmentAuthorStatic Sitting- Balance SupportFeet ksavhgtnq70/17/2025 10:54 AM Ashley Vela, GREGGAStatic Sitting-Level of PiibhiapndFwrbqbsmhea91/17/2025 10:54 AM Ashley Vela, GREGGAStatic Sitting-Comment/Number of MinutesSitting in recliner chair in room. 05/03/2025 2:34 PM Charla Harden, OT * Home LivingQuestionAnswerDate of AssessmentAuthorAlternate Level Stairs-Rails Right05/02/2025 2:19 PM Daron Mao, PTAlternate Level Stairs-Number of Sldig92-25 to second level where bedroom is peyljgy3005/02/2025 2:19 PM EDT Daron Trevino, PTEntrance Stairs-VzkxjFfri82/15/2025 2:19 PM Daron Mao, PTEntrance Stairs-Number of Peqdz855 2:19 PM Daron Mao, Marquise AccessStairs to enter without rails05/02/2025 2:19 PM Daron Mao, PTType of YuziIpppx68/15/2025 2:19 PM Daron Mao PTHome Layout Two level;Bed/bath upstairs;Stairs to alternate level with rails;Laundry in zitintbi13/15/2025 2:19 PM Daron Mao, PTBathroom Shower/TubTub/shower unit05/02/2025 2:19 PM Daron Mao, PTBathroom YovvznSandbgcd56/15/2025 2:19 PM Daron Mao, PTBathroom IgjnrjnibIyrd77/15/2025 2:19 PM EDT Daron Trevino, PTHome Adaptive OsybilyapQfmcqqpz06/15/2025 2:19 PM EDT Daron Trevino, PTLives WithSignificant other05/02/2025 2:19 PM Daron Mao, PTHome Living CommentsEnter from garage into main level with family room + 1/2 bath. 4 steps up into kitchen, 3 into living room. Full flight to bedroom/full bath.05/02/2025 2:19 PM Daron Mao, PT * OT AssessmentQuestionAnswerDate of AssessmentAuthorOT Assessment/AG[employer]CRA[employer] PILOT SummaryPt doing well, waiting to hear about d/c plan for . Pt was able to stand to complete ADLs, self-initiating rest breaks prn. No c/o pain in R/wrist or forearm weight bearing or otherwise.05/04/2025 10:54 AM Ahsley Vela COTA OT Education/Commentssafety awareness, EC/WS05/04/2025 10:54 AM Ashley Vela COTAStrengthsLiving arrangement secure;Support and attitude of living cavudhzq41/16/2025 2:45 PM Charla Harden OTBarriers to DischargeAccess to adaptive/assistive smalwuvb67/16/2025 2:45 PM Charla Harden OTPrognosis Good05/04/2025 10:54 AM Ashley Vela COTAOT ImpairmentsDecreased ADL status;Decreased endurance;Decreased IADLs;Decreased functional mobility;Decreased trunk control for functional bebijiqzjl70/16/2025 2:45 PM Charla Harden OTEvaluation/Treatment TolerancePatient tolerated treatment well05/04/2025 10:54 AM Ashley Vela COTAMedical Staff Made AwareYes 05/04/2025 10:54 AM Ashley Vela COTA * PT Last VisitQuestionAnswerDate of AssessmentAuthorPT Received [id number] 05/02/2025 12:39 PM Daron Mao, PT * Suicidal IdeationQuestionAnswerDate of AssessmentAuthor1. Wish to be (Lifetime)No04/19/2025 10:43 AM Karrie Layton, SAL2. Non-Specific Active Suicidal Thoughts (Lifetime)No04/19/2025 10:43 AM Karrie Layton, SAL * Rosangela Coma ScaleQuestionAnswerDate of AssessmentAuthorBest Eye Response Cnzxjrxwpmo86/17/2025 9:23 AM Beena Martines RNBe Verbal ResponseOriented 05/04/2025 9:23 AM Beena Martines RNBest Motor ResponseFollows commands 05/04/2025 9:23 AM Beena Martines RNGlasgow Coma Scale Zobrx9759/17/2025 9:23 AM Beena Martines RN * Pain AssessmentQuestionAnswerDate of AssessmentAuthorPain LocationWrist 05/04/2025 10:54 AM Ashley Vela COTAPain ZmpruvmgaziPqlou96/17/2025 10:54 AM Ashley Vela COTAPain TomrfejnsmpvtLjvnedgk52/17/2025 9:23 AM Beena Alcaraz RNPain HbyaymlhwexXigoavxfo32/16/2025 8:16 AM Daisy Reinoso RNPain BpuvbBivblya21/16/2025 8:16 AM Daisy Reinoso RNPain Frequency Constant/vuciwkeipz01/16/2025 8:16 AM Daisy Reinoso RNResponse to Interventionssleeping wdfslml1205/04/2025 1:13 AM EDTRobinsonMyesha RNPain TypeAcute pain05/04/2025 10:54 AM Ashley Vela COTAClinical ProgressionNot ltkyowh3805/04/2025 9:23 AM Beena Martines RNPain Assessment0-101 10:54 AM Ashley Vela COTA * NutritionQuestionAnswerDate of AssessmentAuthorDiet TypeHeart healthy 05/04/2025 9:23 AM Beena Martines RNFeedingAble to feed self05/04/2025 9:23 AM Beena Martines IWCpcczjhzWbhp30/17/2025 9:23 AM Beena Martines, SAL * Respiratory InterventionsQuestionAnswerDate of AssessmentAuthorRespiratory Interventions PerformedCough and deep cxonhvp87/17/2025 9:23 AM Beena Martines RN * Cough and Deep BreatheQuestionAnswerDate of AssessmentAuthorCough and Deep YznyerfYnb98/17/2025 9:23 AM Beena Martines RN * IntegumentaryQuestionAnswerDate of AssessmentAuthorSkin ColorAppropriate for race05/02/2025 8:05 PM Kannan Mack RNSkin Condition/TempWarm;Dry 05/02/2025 8:05 PM Kannan Mack RNSkin IntegrityOther (Comment) 05/04/2025 9:23 AM Beena Martines RNSkin TurgorNon-hbpzfyn8705/03/2025 8:16 AM Daisy Reinoso RNIntegumentary (WDL)X1 9:23 AM Beena Martines RN * GI InterventionsQuestionAnswerDate of AssessmentAuthorGI Interventions XnkpktewjJbtjbmrm66/13/2025 4:00 PM Marta Andrade RN * QuestionAnswerDate of AssessmentAuthorWhich is your dominant hand?Right 04/24/2025 6:00 PM Ruby Mercado RN * Pain ScoreAnswerDate of AssessmentAuthor5 - Moderate pain05/04/2025 3:45 PM Daisy Reinoso RN * QuestionAnswerDate of AssessmentAuthorUrinary AadelncwimujJdd33/16/2025 6:35 AM Kannan Mack RN * QuestionAnswerDate of AssessmentAuthorEmesis Color/AppearanceUndigested food 04/26/2025 11:10 AM Tiffanie Linder RN * QuestionAnswerDate of AssessmentAuthorPatient Goal for Treatmentdischarge to home05/03/2025 8:00 AM Daisy Reinoso RN * Patient Strengths/Problem AreasQuestionAnswerDate of AssessmentAuthorStrengths (Must Choose Two)Supportive Family;Communication Ibinhu8804/19/2025 10:40 AM Karrie Nails RNProblem AreasHealth Problems;Physical Ocpsar8704/19/2025 10:40 AM EDTHill, Karrie, RN * Patient BehaviorsAnswerDate of VufnecxebuSdppgjFgbnitmz86/15/2025 12:25 PM GWENT Little Hector RN * Environment of Care ChecklistQuestionAnswerDate of AssessmentAuthorWere suicide precautions explained to the patient?Yes05/04/2025 9:23 AM Beena Martines RNPotentially harmful objects out of patient reach?Yes05/04/2025 9:23 AM Beena Martines RNPersonal belongings secured?Yes05/04/2025 9:23 AM Beena Alcaraz RNPatient dressed in hospital-provided attire only?Yes05/04/2025 9:23 AM Beena Martines RNPatient care equipment (cords, cables, call bells, lines, and drains) shortened, removed, or accounted for?Yes05/04/2025 9:23 AM Beena Martines RNRoom secured by RN per shift?Yes05/04/2025 9:23 AM Beena Alcaraz RN * Care Plan - Safety GoalsQuestionAnswerDate of AssessmentAuthorFree from fall injuryAssess patient frequently for physical needs;Identify cognitive and physical deficits and behaviorsthat affect risk of falls;Loop fall precautions as indicated by assessment;Educate patient/family on patient safety, including physical limitations;Instruct patient to call for assistance with activity based on assessment;Modify environment to reduce risk of injury;Consider OT/PT consult to assist with strengthening/lhieabew48/17/2025 9:23 AM Beena Martines RN * Acute TriageQuestionAnswerDate of AssessmentAuthorTriage Cejdkkqf461/15/2025 2:42 PM Daron Mao, PTTriage GroupCardiovascular and pulmonology 05/02/2025 2:42 PM Daron Mao, PT * Modified AldreteQuestionAnswerDate of EwakjvjvrsVfwoqqHjqywulf688/07/2025 3:43 PM Marco Stanford RNRespiration 3:43 PM Marco Stanford RNCirculation 3:43 PM Marco Stanford RNConsciousness2 04/24/2025 3:43 PM Marco Stanford RNOxygen Kyfwyakbqq561/07/2025 3:43 PM Marco Stanford RNModified Clary Vslmw7715/07/2025 3:43 PM Marco Stanford RN * Modified Malnutrition Screening Tool (MST)QuestionAnswerDate of Assessment AuthorHave you recently lost weight without trying? 10:45 AM Karrie Nails RNHave you been eating poorly because of a decreased appetite?3 04/19/2025 10:45 AM Karrie Layton RNOn home tube feeding or TPN? 10:45 AM Karrie Layton RNDoes patient have a stage 2-4 pressure ulcer?0 04/19/2025 10:45 AM Karrie Layton RN * Weight Loss ScoreAnswerDate of CimztrthxvVqppbd408/02/2025 10:45 AM Karrie Layton RN * Malnutrition ScoreAnswerDate of BlvpwaiglsAytrtg792/02/2025 10:45 AM aKrrie Layton RN documented as of this encounter Mental Status * Maddock Coma ScaleQuestionAnswerEntry DateAuthorBest Eye ResponseSpontaneous 05/04/2025 9:23 AM Beena Martines RNBe Verbal PwnwpgapWjuymxja99/17/2025 9:23 AM Beena Martines RNBest Motor ResponseFollows johzcozk64/17/2025 9:23 AM Beena Martines RNGlasgow Coma Scale Ndugn7781/17/2025 9:23 AM Beena Martines RN * QuestionAnswerEntry DateAuthorRichmond Agitation Sedation Scale (RASS)0 05/02/2025 4:00 AM Linsey Ho RN * Modified AldreteQuestionAnswerEntry LxsiNbbmglUsodtsvq620/07/2025 3:43 PM Marco Garcia RNRespiration21 3:43 PM Marco Stanford RN Ujlicxwjidu443/07/2025 3:43 PM Marco Stanford RNConsciousness21 3:43 PM Marco Stanford RNOxygen Rsnatameyo044/07/2025 3:43 PM EDT Marco Walters RNModified Clary Ntvif7151/07/2025 3:43 PM Marco Stanford RN documented in this encounter Discharge Summaries * Benedict Pascual MD - 05/04/2025 10:58 AM EDT Images from the original note were not included. 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 male who came from [place] with chest pain with radiation to neck and back. Past medical history of heart failure with reduced ejection fraction, hypertension, coronary artery disease, cardiomyopathy nonischemic (AICD placed), hyperlipidemia, atrial fibrillation status post Watchman , asthma. Patient presents from [place] with chest pain radiating to the neck [...] patient was found to have small pericardial ef fusion on CT as well as potential atelectasis versus pneumonia. He also had a sodium of 123. His troponins were downtrending and from 11.5-10.5. Patient was also hypotensive at outside hospital whichhe states he has been hypotensive now for the past 2 weeks. At bedside patient states that chest pain has improved and is now a 2 out of 10. He still states that chest pain radiates up to his neck. Along with chest pain he complains of fever, sweats, chest pain, shortness of breath, fatigue, weakness. Patient denies chills, palpitations, leg swelling, wheezing abdominal pain, nausea, vomiting, diarrhea, lightheadedness, dizziness, headache, visual changes. # Right ventricular dysfunction # Cardiogenic shock (CMS/HCC) - Required Witt Shannan and dobutamine in ICU. - Improved. # ATN (acute tubular necrosis) - Due to shock. - Required CRRT in ICU. - Improving. - Follow up outpatient. # Cardiomyopathy (CMS/HCC) # Heart failure with reduced ejection fraction (CMS/HCC) # ICD (implantable cardioverter-defibrillator) in place - Nonischemic cardiomyopathy. - Echo this admission showed EF 20%. - Continue Toprol, spironolactone, Farxiga. - Discharged on Lasix as needed. - D/C Entresto to hypotension and LINDA Address outpatient. # Hematoma of intravenous catheter site - Neck side. - Discharged on doxy empirically. # Pericardial effusion - Echo on admission showed early tamponade. Patient was taken to [facility] for Pericardiocentesis. Right heart cath was not suggestive for tamponade. 300 ml serosanguinous fluid. - Repeated echo showed mild effusion. - Discharged on colchicine for 3 months. # Atrial fibrillation (CMS/HCC) - Currently paced. - Status post Watchman. - Continue aspirin and Plavix. # Primary hypertension # Hypotension due to hypovolemia # Sinus tachycardia - Continue Toprol, Farxiga and spironolactone. - D/C Entresto. # Coronary artery disease involving [place] coronary artery of [place] heart with angina pectoris - Nonobstructive. - Continue aspirin, Plavix, Lipitor. Dear MD King Robert is advised to follow up with you within 1-2 weeks. Items to follow up in ambulatory setting: None Follow-up with: Cardiology, CHF clinic, and Nephrology Scheduled appointments: Future Appointments Date Time Provider Department Center 05/14/2025 1:40 PM Elliott Nettles CNP [facility] Your medication list START taking these medications Instructions Last Dose Given Next Dose Due colchicine 0.6 mg tablet Take 1 tablet (0.6 mg) by mouth in the morning. doxycycline 100 mg capsule Commonly known as: Vibramycin Take 1 capsule (100 mg) by mouth two times daily for 11 doses. Take with at least 8 ounces (large glass) of water, do not lie down for 30 minutes after furosemide 20 mg tablet Commonly known as: Lasix Take 2 tablets (40 mg) by mouth if needed each day (for legs swelling or weight gain >2-3 lbs a day). CHANGE how you take these medications Instructions Last Dose Given Next Dose Due metoprolol succinate XL 25 mg 24 hr tablet Commonly known as: Toprol-XL What changed: medication strength how much to take when to take this Take 0.5 tablets (12.5 mg) by mouth in the morning. Do not crush or chew. CONTINUE taking these medications Instructions Last Dose Given Next Dose Due albuterol 90 mcg/actuation inhaler allopurinol 300 mg tablet Commonly known as: Zyloprim aspirin 81 mg chewable tablet Chew 1 tablet (81 mg) with breakfast. atorvastatin 40 mg tablet Commonly known as: Lipitor Take 1 tablet (40 mg) by mouth at bedtime. clopidogrel 75 mg tablet Commonly known as: Plavix Take 1 tablet (75 mg) by mouth in the morning. dapagliflozin propanediol 10 mg Commonly known as: Farxiga Take 1 tablet (10 mg) by mouth once daily as directed. Dupixent Syringe 300 mg/2 mL syringe injection Generic drug: dupilumab fluticasone 50 mcg/actuation nasal spray Commonly known as: Flonase fluticasone propion-salmeteroL 500-50 mcg/dose diskus inhaler Commonly known as: Advair Diskus spironolactone 25 mg tablet Commonly known as: Aldactone Take 1 tablet (25 mg) by mouth in the morning. STOP taking these medications amoxicillin 500 mg tablet Commonly known as: Amoxil sacubitril-valsartan 97-103 mg tablet Commonly known as: Entresto Where to Get Your Medications These medications were sent to [id number] - [place], [place] - [address] [place] [address] colchicine 0.6 mg tablet doxycycline 100 mg capsule furosemide 20 mg tablet metoprolol succinate XL 25 mg 24 hr tablet Kristy has no known allergies. Disposition: [place]-Health [place] [facility] [place] Discharge Condition: Stable Code Status: Prior Diagnostic Results Hematology: Results from last 7 days Lab Units 05/04/2541705/03/25 0351 WBC AUTO 10*3/uL 6.04 6.22 HEMOGLOBIN g/dL 9.8* 9.2* HEMATOCRIT % 28.3* 27.4* MCV fL 91.3 92.9 PLATELETS AUTO 10*3/uL 192 187 Chemistry: Results from last 7 days Lab Units 05/04/258 05/03/25 0351 SODIUM mmol/L 128* 129* POTASSIUM mmol/L 3.7 4.1 CHLORIDE mmol/L 94* 94* CO2 mmol/L 23 25 BUN mg/dL 25 24 CREATININE mg/dL 1.58* 1.75* GLUCOSE mg/dL 81 89 MAGNESIUM mg/dL 2.0 1.8* CALCIUM mg/dL 7.3* 7.3* PHOSPHORUS mg/dL 3.1 1.8* No lab exists for component: AFIO2 , APHT , APCOT , APOT , ATCO2 , CK , ALB , IBILI Test Results Pending At Discharge: Diet at the time of discharge: cardiac diet Nutrition Screen Activity: Normal activity as tolerated Objective Blood pressure 102/65, pulse 95, temperature 36.9 ??C (98.4 ??F), temperature source Temporal, resp. rate 21, height 1.727 m (5' 8 ), weight 84.9 kg (187 lb 1.6 oz), SpO2 98%. General: Alert and oriented x3. Cardiology: Normal rate, regular rhythm. Lungs: Clear to auscultation, no wheezes, rales or rhonchi, symmetric air entry. Abdomen: Soft, non tender, non distended. Neck: Lump on right side neck (cath site access). Total time for discharge - review of data, exam, discussion with providers and care-team, med-rec and orders, arranging follow up, counseling of patient and/or family and documentation was 44 minutes. Signed Benedict Pascual MD [facility] Medicine 05/09/2025 8:49 AM CC: MD Mari documented in this encounter Discharge Instructions * [...] up taller/more pillowsthan normal or in recliner. [phone]. Cardiac Event Monitor Call [phone] at discharge to confirm [facility] Cardiac event monitor availability. Please go to [facility] after discharge prior to leaving hospital for Cardiac Event monitor placement/education. LABS: Have BMP and CBC drawn in 2-3 days and follow up with your PCP with results documented in this encounter Medications at Time of Discharge MedicationSigDispense QuantityRefillsLast FilledStart DateEnd Date allopurinol (Zyloprim) 300 mg tablet Take 300 mg by mouth in the morning. aspirin 81 mg chewable tablet Indications:Presence of Watchman left atrial appendage closure deviceChew 1 tablet (81 mg) with breakfast. 90 tablet atorvastatin (Lipitor) 40 mg tablet Indications:Coronary artery disease involving [place] coronary artery of [place] heart without angina pectorisTake 1 tablet (40 mg) by mouth at bedtime. 90 tablet clopidogrel (Plavix) 75 mg tablet Indications:Presence of Watchman left atrial appendage closure deviceTake 1 tablet (75 mg) by mouth in the morning. 90 tablet fluticasone (Flonase) 50 mcg/actuation nasal spray Administer 1 spray into each nostril two times daily. Shake gently. Before first use, prime pump. After use, clean tip and replace cap. fluticasone propion-salmeteroL (Advair Diskus) 500-50 mcg/dose diskus inhaler Inhale 1 puff two times daily.10/07/2022 spironolactone (Aldactone) 25 mg tablet Indications:Chronic systolic heart failure (CMS/HCC)Take 1 tablet (25 mg) by mouth in the morning. 90 tablet albuterol 90 mcg/actuation inhaler Inhale 1 puff 2 times daily. colchicine 0.6 mg tablet Indications:Heart failure with reduced ejection fraction (CMS/HCC)Take 1 tablet (0.6 mg) by mouth in the morning. 30 tablet Dupixent Syringe 300 mg/2 mL syringe injection Inject 300 mg under the skin every 14 (fourteen) days.02/03/2025 furosemide (Lasix) 20 mg tablet Indications:Heart failure with reduced ejection fraction (CMS/HCC)Take 2 tablets (40 mg) by mouth if needed each day (for legs swelling or weight gain >2-3 lbs a day). 30 tablet dapagliflozin propanediol (Farxiga) 10 mg Indications:Chronic systolic congestive heart failure (CMS/HCC)Take 1 tablet (10 mg) by mouth once daily as directed. 90 tablet doxycycline (Vibramycin) 100 mg capsule Indications:Heart failure with reduced ejection fraction (CMS/HCC)Take 1 capsule (100 mg) by mouth two times daily for 11 doses. Take with at least 8 ounces (large glass) of water, do not lie down for 30 minutes after 11 capsule metoprolol succinate XL (Toprol-XL) 25 mg 24 hr tablet Indications:Heart failure with reduced ejection fraction (CMS/HCC)Take 0.5 tablets (12.5 mg) by mouth in the morning. Do not crush or chew. 15 tablet documented as of this encounter Progress Notes * Brenda Cates - 05/04/2025 4:33 PM EDT 05/07/25 1235 communication received that [facility] no longer accepting referrals sent, [facility] by [facility] accepting- sent them AVS and they will call Patient to start services * Karsten San, PT - 05/04/2025 3:20 [...] Karsten San PT, DPT * Katy Joy, WAREHOUSE PRODUCTION WORKER - 05/04/2025 3:05 PM EDT [facility] [...] contact us Wednesday through Wednesday 8:30am-5:00pm through [employer] Chat or call [phone]. After Hours please call [phone]. * Igor Greene MD - 05/04/2025 2:52 [...] s/p Watchman procedure, who was transferred from [place] with initial chief complaint of chest and [...] Last Dose Status albuterol 90 mcg/actuation inhaler [id number] Inhale 1 puff 2 times daily. German Walden MD Active allopurinol (Zyloprim) 300 mg tablet [id number] Yes Take 300 mg by mouth in the morning. German Walden MD 04/18/2025 Morning Active amoxicillin (Amoxil) 500 mg tablet [id number] No Take 4 tablets (2,000 mg) by mouth 1 (one) time if needed (30-60 minute prior to dental procedures) for up to 20 doses. Patient not taking: Reported on 04/19/2025 Hay William MD Unknown Active aspirin 81 mg chewable tablet [id number] Yes Chew 1 tablet (81 mg) with breakfast. Hay William MD 04/18/2025 Morning Active atorvastatin (Lipitor) 40 mg tablet [id number] Yes Take 1 tablet (40 mg) by mouth at bedtime. Hay William MD 04/18/2025 Bedtime Active clopidogrel (Plavix) 75 mg tablet [id number] Yes Take 1 tablet (75 mg) by mouth in the morning. Hay William MD 04/18/2025 Morning Active dapagliflozin propanediol (Farxiga) 10 mg [id number] Yes Take 1 tablet (10 mg) by mouth once daily asdirected. Shania Chauhan CNP 04/18/2025 Morning Active Dupixent Syringe 300 mg/2 mL syringe injection [id number] No Inject 300 mg under the skin every 14 (fourteen) days. German Walden MD 04/07/2025 Active fluticasone (Flonase) 50 mcg/actuation nasal spray [id number] Yes Administer 1 spray into each nostril two times daily. Shake gently. Before first use, prime pump. After use, clean tip and replace cap.German Walden MD 04/18/2025 Bedtime Active fluticasone propion-salmeteroL (Advair Diskus) 500-50 mcg/dose diskus inhaler [id number] Yes Inhale 1puff two times daily. German Walden MD 04/18/2025 Bedtime Active metoprolol succinate XL (Toprol-XL) 50 mg 24 hr tablet [id number] Yes Take 1 tablet (50 mg) by mouth once daily as directed. Do not crush or chew. Hay William MD 04/18/2025 Morning Active sacubitril-valsartan (Entresto) 97-103 mg tablet [id number] Yes Take 1 tablet by mouth two times daily. Hay William MD 04/18/2025 Bedtime Active spironolactone (Aldactone) 25 mg tablet [id number] Yes Take 1 tablet (25 mg) by [...] follow-up with cardiology and primary care at [place], [facility] to [facility] but can consult nephrology at [place] per primary teams. Igor Greene MD PGY 2 vice president talent management [facility] Nephrology Pager: [phone] Phone (7am - 4pm): [phone] Cosigned by Karina Amaya MD at 05/05/2025 [...] Value Ventricular Rate 120 Atrial Rate 120 MI Interval 198 QRS DURATION 102 QT Interval 294 QTC CALCULATION(BAZETT) 415 P Milton 64 R-Milton 38 T Wave Milton 116 Impression Sinus tachycardia Low voltage QRS Septal infarct , age undetermined Abnormal ECG When compared with ECG of 19-APR-2025 18:24, Premature ventricular complexes are no longer Present Confirmed by Jeffy VERNON, MITESH Pruett ([id number]) on 04/23/2025 8:14:48 AM Lab Results Component Value Date TROPONINI 0.04 07/02/2022 Transthoracic echo (TTE) limited Result Date: 04/30/2025 1 1 [facility] [address] [facility] [place] [address] [phone] (fax) Echocardiogram-[facility] Name: KRISTY DOHERTY Study Date: 04/30/2025 07:02 AM B/P: 121 mmHg/100 mmHg HR: 87 bpm Date of : 1955 Location:[facility] Height: 68 in. Age: 69 [...] with the fellow Procedure Staff Reading Group: [facility] Referring Physician: RUDY KING Gas Inspector: June Brumfield RDCS, RVT, RN, BSN Ordering Physician: Wil Sotomayor MD Wall Motion Scores -1 - hyperkinesia, 0 - not evaluated, 1 - normal, 2 - hypokinesia, 3 - akinesia, 4 - dyskinesia Limited Echo (TTE) w/wo Limited Doppler, Color Flow, Imaging Agent, Strain, 3D, Bubble Study Result Date: 04/23/2025 1 1 [facility] [address] [facility] [place] [address] [phone] (fax) Echocardiogram-[facility] Name: KRISTY DOHERTY Study Date: 04/23/2025 07:26 AM B/P: 90 mmHg/74 mmHg HR: 111 bpm Date of : 1955 [facility] minimal pericardial effusion. Procedure Staff Reading Group: [facility] Referring Physician: RUDY KING Gas Inspector: June Brumfield RDCS, RVT, RN, BSN Ordering Physician: FANI DENNEY Wall Motion Scores -1 - hyperkinesia, 0 - not evaluated, 1 - normal, 2 - hypokinesia, 3 - akinesia, 4 - dyskinesia Transthoracic echo (TTE) limited Result Date: 04/20/2025 1 1 [facility] [address] [place] [address] [phone] (fax) Echocardiogram-[facility] Name: KRISTY DOHERTY Study Date: 04/20/2025 01:28 PM B/P: 83 mmHg/58 mmHg HR: 96 bpm Date of : 1955 [facility] [...] No pericardial effusion. Procedure Staff Reading Group: [facility] Referring Physician:RUDY KING Gas Inspector: June Brumfield RDCS, RVT, RN, BSN Ordering Physician: VENU SAMANIEGO Wall Motion Scores -1 - hyperkinesia, 0 - not evaluated, 1 - normal, 2 - hypokinesia, 3 - akinesia, 4 - dyskinesia Transthoracic echo (TTE) limited Result Date: 04/19/2025 1 1 [facility] [address] [place] [address] [phone] (fax) Echocardiogram-[facility] Name: KRISTY DOHERTY Study Date: 04/19/2025 02:13 PM B/P: / HR: Date of : 1955 Location: [facility] Height: 68 in. Age: 69 year(s) Patient Room: 3183 Weight: 182 lb. Gender: Male Patient Status: InPt BSA: 1.96 m2 Indication: pericardialeffusion, h/o 35mm Watchman FLX Examination: Limited Echo Image Quality: Fair Findings Pericardium: Moderate pericardial effusion baseline. Post pericardiocentesis there is minimal pericardial effusion. Procedure Staff Reading Group: [facility] Referring Physician: RUDY KING Gas Inspector: SAMI Starr, RDCS Ordering Physician: VENU SAMANIEGO Complete Echo (TTE) w/wo Imaging Agent, Strain, 3D, Bubble Study Result Date: 04/19/2025 1 1 [facility] [address] [place] [address] [phone] (fax) Echocardiogram-[facility] Name: KRISTY DOHERTY Study Date: 04/19/2025 12:46 PM B/P: 97 mmHg/71 mmHg HR: Date of : 1955 [facility] early tamponade physiology. Procedure Staff Reading Group: [facility] Gas Inspector: Bryanna Cazares RDCS Ordering Physician: HAKAN Canchola signed by MD Mitesh Vernon on 04/19/2025 at 01:44 PM Limited Transthoracic Echo (TTE) w/wo Contrast, Color Flow, Imaging Agent, Strain, 3D, Bubble Study Result Date: 02/07/2025 1 1 [facility] Heart Station [address] [facility]. [place] [id number] [phone] (fax) Echocardiogram-[facility] Name: KRISTY DOHERTY Study Date: 02/07/2025 08:02 AM B/P: 118 mmHg/85 mmHg HR: 63 bpm Date of : 1955 [facility] No pericardial effusion. Procedure Staff Reading Group: [facility] Referring Physician: RUDY KING Gas Inspector: June Shoots, BS, RDCS Ordering Physician: CHUCK FUNEZ Transesophageal echo (MASON) Result Date: 12/01/2024 1 [facility] Heart Station [address] [place] [address] [phone] (fax) Transesophageal Echocardiogram-[facility] Name: KRISTY [...] Location: A MASON was performed in the [employer] [facility] without complications Anesthesia Pharyngeal anesthesia with viscous [...] examination with the fellow Procedure Staff ReadingGroup: [facility] Referring Physician: RUDY KING Gas Inspector: DORIAN Walker Ordering Physician: Hay William MD [...] on telemetry, on amiodarone gtt Paroxysmal A-fib [id number] 3 (heart failure, hypertension, age 65-74) s/p [...] Alba Mena MD Internal medicine resident, PGY-3 [facility] Cosigned by Mitesh Vernon MD at 05/04/2025 [...] 1.58 (H) 05/04/2025 0418 NA 128 (L) 05/04/20258 K 3.7 05/04/20258 PHOS 3.1 05/04/2025 0418 MG 2.0 05/04/2025 [...] trays. S/o food tastes bland. Taking Boost [facility] BID (drinking ~1 carton total). [...] of Nutrition and Dietetics (AND) and the [place] [employer] of Enteral and Parenteral Nutrition (ASPEN). [...] To reach the Clinical Dietitian, please utilize [employer] chat Wednesday-Wednesday from 8AM-4PM or call extension [phone]. For weekends (Wednesday-Wednesday) and holidays, the Clinical Dietitian can be reached via pager ([phone]) from 9AM-3PM. The Clinical Nutrition Department is unable to respond to [employer] chat messages on Sundays and s. [1] Past Medical History: Diagnosis Date Asthma 07/29/2012 CHF (congestive heart failure) (CMS/HCC) Coronary artery disease History of malignant neoplasm of prostate 07/03/2022 Hypertension 07/03/2022 [2] No Known Allergies * Pam Prado PTA - 05/03/2025 3:36 PM EDT Physical Therapy PM Cancellation note 05/03/2025 Pt per nursing is currently off the floor and down in , pt had a hematoma on the [...] Eating meals?: None (Independent) Total Score OT [facility]: 19 Assessment/Plan OT Assessment OT Impairments: Decreased ADL status, Decreased endurance, Decreased IADLs, Decreased functional mobility, Decreased trunk control for functional activities OT Assessment/BALWINDER Summary: The patient is making good progress [...] Syncope and collapse Coronary artery disease involving [place] coronary artery of [place] heart with angina pectoris Chronic systolic heart [...] from the original note were not included. [facility] Medicine Daily Progress Note - 05/03/2025 12:08 PM; Room: [address] [place] [address] Admission: 04/19/2025 10:46 AM; Length of stay: 14 days THE HOSPITALIST TEAM PREFERS TO USE EPIC CHAT FOR NON-URGENT COMMUNICATION 7AM- 7PM. IF I DO NOT RESPOND WITHIN 20 MINUTES OR URGENT MATTERS, PLEASE CALL THROUGH THE PCAT INSTRUCTOR. FROM 7PM-7AM, PLEASE PAGE [phone](COVR). Code Status: Full Code Barriers to Discharge: [...] ventricular dysfunction Cardiogenic shock (CMS/HCC) - Required Witt Shannan and dobutamine in ICU. - Improving. [...] showed early tamponade. Patient was taken to mushroom laborer for Pericardiocentesis. Right heart cath was not [...] due to LINDA. Coronary artery disease involving [place] coronary artery of [place] heart with angina pectoris - Nonobstructive. - [...] 5000 mL, 2,000 mL/hr, Last Rate: Stopped (05/01/251252) sodium bicarbonate 150 mEq in sterile water 1,000 mL infusion, 200 mL/hr, Last Rate: Stopped (05/01/251252) Pertinent Investigations Hematology: Results from last 7 days Lab Units 05/03/2535005/02/25312 WBC AUTO 10*3/uL 6.22 5.94 HEMOGLOBIN g/dL 9.2* 8.4* HEMATOCRIT % 27.4* 24.6* MCV fL 92.9 93.5 PLATELETS AUTO 10*3/uL 187 153 Chemistry: Results from last 7 days Lab Units 05/03/2535005/02/2531205/01/25 0830 SODIUM mmol/L 129* 133* 136 POTASSIUM [...] Imaging Transthoracic echo (TTE) limited 1 1 [facility] Heart Station [address] [place] [phone] (fax) Echocardiogram-[facility] Name: KRISTY DOHERTY Study Date: 04/30/2025 07:02 AM B/P: 121 mmHg/100 mmHg HR: 87 bpm Date of : 1955 Location: [facility] Height: 68 in. Age: 69 year(s) Patient Room: [facility] Weight: 178 lb. Gender: Male Patient Status: [...] with the fellow Procedure Staff Reading Group: [facility] Referring Physician: RUDY KING Gas Inspector: June Brumfield, DEAN, RVT, RN, BSN Ordering [...] prior living environment Signed Benedict Pascual MD Hospital Medicine 05/03/2025 12:08 PM * Kristin Sanchez [...] s/p Watchman procedure, who was transferred from [place] with initial chief complaint of chest and [...] Last Dose Status albuterol 90 mcg/actuation inhaler [id number] Inhale 1 puff 2 times daily. Historical Provider, Active allopurinol (Zyloprim) 300 mg tablet [id number] Yes Take 300 mg by mouth in the morning. Historical ProviderMD 04/18/2025 Morning Active amoxicillin (Amoxil) 500 mg tablet [id number] No Take 4 tablets (2,000 mg) by mouth 1 (one) time if needed (30-60 minute prior to dental procedures) for up to 20 doses. Patient not taking: Reported on 04/19/2025 Hay William MD Unknown Active aspirin 81 mg chewable tablet [id number] Yes Chew 1 tablet (81 mg) with breakfast. Hay William MD 04/18/2025 Morning Active atorvastatin (Lipitor) 40 mg tablet [id number] Yes Take 1 tablet (40 mg) by mouth at bedtime. Hay William MD 04/18/2025 Bedtime Active clopidogrel (Plavix) 75 mg tablet [id number] Yes Take 1 tablet (75 mg) by mouth in the morning. Hay William MD 04/18/2025 Morning Active dapagliflozin propanediol (Farxiga) 10 mg [id number] Yes Take 1 tablet (10 mg) by mouth once daily asdirected. Shania Chauhan CNP 04/18/2025 Morning Active Dupixent Syringe 300 mg/2 mL syringe injection [id number] No Inject 300 mg under the skin every 14 (fourteen) days. Historical Provider, 04/07/2025 Active fluticasone (Flonase) 50 mcg/actuation nasal spray [id number] Yes Administer 1 spray into each nostril two times daily. Shake gently. Before first use, prime pump. After use, clean tip and replace cap.Historical Provider, 04/18/2025 Bedtime Active fluticasone propion-salmeteroL (Advair Diskus) 500-50 mcg/dose diskus inhaler [id number] Yes Inhale 1puff two times daily. Historical Provider, 04/18/2025 Bedtime Active metoprolol succinate XL (Toprol-XL) 50 mg 24 hr tablet [id number] Yes Take 1 tablet (50 mg) by mouth once daily as directed. Do not crush or chew. Hay William MD 04/18/2025 Morning Active sacubitril-valsartan (Entresto) 97-103 mg tablet [id number] Yes Take 1 tablet by mouth two times daily. Hay William MD 04/18/2025 Bedtime Active spironolactone (Aldactone) 25 mg tablet [id number] Yes Take 1 tablet (25 mg) by [...] Radiology: Transthoracic echo (TTE) limited 1 1 [facility] Heart Station [address] [facility] [place], [place] [phone] (fax) Echocardiogram-[facility] Name: KRISTY DOHERTY Study Date: 04/30/2025 07:02 AM B/P: 121 mmHg/100 mmHg HR: 87 bpm Date of : 1955 [facility] [...] with the fellow Procedure Staff Reading Group: [facility] Referring Physician: RUDY KING Gas Inspector: June Brumfield RDCS, RVT, RN, BSN Ordering [...] watch for renal recovery. No indication for [employer] at this time. Patient remained stable and is now on the floor. Maintain femoral catheter at this time. Will continue to trend Creatinine to assess when to remove femoral catheter. Electrolyte replacement as needed Continue to avoid nephrotoxic medications. Nephrology service will continue to follow. Kristin SANCHEZ MD Nephrology Fellow PGY 4 - [facility] Nephrology Pager: [phone] Phone (7am - 4pm): [phone] Cosigned by Karina Amaya MD at 05/03/2025 [...] Value Ventricular Rate 120 Atrial Rate 120 MI Interval 198 QRS DURATION 102 QT Interval 294 QTC CALCULATION(BAZETT) 415 P Milton 64 R-Milton 38 T Wave Milton 116 Impression Sinus tachycardia Low voltage QRS Septal infarct , age undetermined Abnormal ECG When compared with ECG of 19-APR-2025 18:24, Premature ventricular complexes are no longer Present Confirmed by Jeffy VERNON, MITESH Pruett (57) on 04/23/2025 8:14:48 AM Lab Results Component Value Date TROPONINI 0.04 07/02/2022 Transthoracic echo (TTE) limited Result Date: 04/30/2025 1 1 [facility] Heart Station [address] [place] [address] [phone] (fax) Echocardiogram-[facility] Name: KRISTY DOHERTY Study Date: 04/30/2025 07:02 AM B/P: 121 mmHg/100 mmHg HR: 87 bpm Date of : 1955 Location:[facility] Height: 68 in. Age: 69 [...] with the fellow Procedure Staff Reading Group: [facility] Referring Physician: RUDY KING Gas Inspector: June Brumfield RDCS,RVT, RN, BSN Ordering Physician: Wil Sotomayor MD Wall Motion Scores -1 - hyperkinesia, 0 - not evaluated, 1 - normal, 2 - hypokinesia, 3 - akinesia, 4 - dyskinesia Limited Echo (TTE) w/wo Limited Doppler, Color Flow, Imaging Agent, Strain, 3D, Bubble Study Result Date: 04/23/2025 1 1 [facility] Heart Station [address] [place] [address] [phone] (fax) Echocardiogram-[facility] Name: KRISTY DOHERTY Study Date: 04/23/2025 07:26 AM B/P: 90 mmHg/74 mmHg HR: 111 bpm Date of : 1955 [facility] [...] minimal pericardial effusion. Procedure Staff Reading Group: [facility] Referring Physician: RUDY KING Gas Inspector: June Brumfield RDCS, RVT, RN, BSN Ordering Physician: FANI DENNEY Wall Motion Scores -1 - hyperkinesia, 0 - not evaluated, 1 - normal, 2 - hypokinesia, 3 - akinesia, 4 - dyskinesia Transthoracic echo (TTE) limited Result Date: 04/20/2025 1 1 [facility] Heart Station [address] [place] [address] [phone] (fax) Echocardiogram-[facility] Name: KRISTY DOHERTY Study Date: 04/20/2025 01:28 PM B/P: 83 mmHg/58 mmHg HR: 96 bpm Date of : 1955 [facility] [...] No pericardial effusion. Procedure Staff Reading Group: [facility] Referring Physician:RUDY KING Gas Inspector: June Brumfield RDCS, RVT, RN, BSN Ordering Physician: VENU SAMANIEGO Wall Motion Scores -1 - hyperkinesia, 0 - not evaluated, 1 - normal, 2 - hypokinesia, 3 - akinesia, 4 - dyskinesia Transthoracic echo (TTE) limited Result Date: 04/19/2025 1 1 [facility] Heart Station [address] [place] [address] [phone] (fax) Echocardiogram-[facility] Name: KRISTY DOHERTY Study Date: 04/19/2025 02:13 PM B/P: / HR: Date of : 1955 Location: [facility] Height: 68 in. Age: 69 year(s) Patient Room: 7523 Weight: 182 lb. Gender: Male Patient Status: InPt BSA: 1.96 m2 Indication: pericardialeffusion, h/o 35mm Watchman FLX Examination: Limited Echo Image Quality: Fair Findings Pericardium: Moderate pericardial effusion baseline. Post pericardiocentesis there is minimal pericardial effusion. Procedure Staff Reading Group: [facility] Referring Physician: RUDY KING Gas Inspector: SAMI Starr, RDCS Ordering Physician: VENU SAMANIEGO Complete Echo (TTE) w/wo Imaging Agent, Strain, 3D, Bubble Study Result Date: 04/19/2025 1 1 [facility] Heart Station [address] [place] [address] [phone] (fax) Echocardiogram-[facility] Name: KRISTY DOHERTY Study Date: 04/19/2025 12:46 PM B/P: 97 mmHg/71 mmHg HR: Date of : 1955 [facility] early tamponade physiology. Procedure Staff Reading Group: [facility] Gas Inspector: Bryanna Cazares RDCS Ordering Physician: HAKAN Canchola signed by MD Mitesh Vernon on 04/19/2025 at 01:44 PM Limited Transthoracic Echo (TTE) w/wo Contrast, Color Flow, Imaging Agent, Strain, 3D, Bubble Study Result Date: 02/07/2025 1 1 [facility] Heart Station [address] [place] [address] [phone] (fax) Echocardiogram-[facility] Name: KRISTY DOHERTY Study Date: 02/07/2025 08:02 AM B/P: 118 mmHg/85 mmHg HR: 63 bpm Date of : 1955 [facility] [...] No pericardial effusion. Procedure Staff Reading Group: [facility] Referring Physician: RUDY KING Gas Inspector: SAMI Starr, RDCS Ordering Physician: CHUCK FUNEZ Transesophageal echo (MASON) Result Date: 12/01/2024 1 [facility] Heart Station [address] [place] [address] [phone] (fax) Transesophageal Echocardiogram-[facility] Name: KRISTY [...] Location: A MASON was performed in the [employer] [facility] without complications Anesthesia Pharyngeal anesthesia with viscous [...] examination with the fellow Procedure Staff ReadingGroup: [facility] Referring Physician: RUDY KING Gas Inspector: DORIAN Walker Ordering Physician: Hay William MD No nuclear medicine results found for the past 12 months Relevant Imaging Results Transthoracic echo (TTE) limited 1 1 [facility] Heart Station [address] [place] [address] [phone] (fax) Echocardiogram-[facility] Name: KRISTY DOHERTY Study Date: 04/30/2025 07:02 AM B/P: 121 mmHg/100 mmHg HR: 87 bpm Date of : 1955 [facility] [...] with the fellow Procedure Staff Reading Group: [facility] Referring Physician: RUDY KING Gas Inspector: June Brumfield RDCS, RVT, RN, BSN Ordering [...] on telemetry, on amiodarone gtt Paroxysmal A-fib [id number] 3 (heart failure, hypertension, age 65-74) s/p [...] Alba Mena MD Internal medicine resident, PGY-3 [facility] Cosigned by Mitesh Vernon MD at 05/03/2025 [...] personal documentation from me. * Darcy Alfredo, [employer] - 05/03/2025 7:41 AM EDT Respiratory Progress [...] : 1955 Today's Date: 05/02/2025 Start Time: 59 Stop Time: 922 Time Calculation (min): 24 [...] Pt is 69 y.o male presenting to [facility] as a transfer from [place] with c/o chest pain radiating to neck [...] Communication: Intact General Assessment General Assessment Hearing: WILTON Skin Integrity: Bruising/yellow discoloration noted to R [...] Level of Function Prior Function Level of [place]: Independent with ADLs and functional transfers, Independent with homemaking with ambulation Prior Functional Mobility: Independent without device History of Falls: States only fall was here in hospital on 04/23 2/ bed height unexpectedly high. Denies any other [...] to benefit from skilled PT services throughout [facility] to address impairments and maximize [...] stand with SBA using least restrictive assistive [id number] 05/23/25 -- Problem: PT Misc Start Date: [...] Syncope and collapse Coronary artery disease involving [place] coronary artery of [place] heart with angina pectoris Chronic systolic heart [...] Communication: Intact General Assessment General Assessment Hearing: WILTON Skin Integrity: Bruising/yellow discoloration noted to R [...] Level of Function Prior Function Level of Dud[place]: Independent with ADLs and functional transfers, Independent [...] Eating meals?: None (Independent) Total Score OT [facility]: 19 Assessment/Plan OT Assessment OT Impairments: Decreased ADL status, Decreased safe judgment during ADL, Decreased endurance, Decreased IADLs, Decreased trunk control for functional activities, Decreased functional mobility OT Assessment/[employer] Summary: Pt admit with chest pain pt [...] Syncope and collapse Coronary artery disease involving [place] coronary artery of [place] heart with angina pectoris Chronic systolic heart [...] Value Ventricular Rate 120 Atrial Rate 120 MI Interval 198 QRS DURATION 102 QT Interval 294 QTC CALCULATION(BAZETT) 415 P Milton 64 R-Milton 38 T Wave Milton 116 Impression Sinus tachycardia Low voltage QRS Septal infarct , age undetermined Abnormal ECG When compared with ECG of 19-APR-2025 18:24, Premature ventricular complexes are no longer Present Confirmed by Jeffy VERNON, MITESH Pruett (57) on 04/23/2025 8:14:48 AM Lab Results Component Value Date TROPONINI 0.04 07/02/2022 Transthoracic echo (TTE) limited Result Date: 04/30/2025 1 1 [facility] Heart Station [address] [place] [address] [phone] (fax) Echocardiogram-[facility] Name: KRISTY DOHERTY Study Date: 04/30/2025 07:02 AM B/P: 121 mmHg/100 mmHg HR: 87 bpm Date of : 1955 Location:[facility] Height: 68 in. Age: 69 [...] with the fellow Procedure Staff Reading Group: [facility] Referring Physician: RUDY KING Gas Inspector: June Brumfield RDCS,RVT, RN, BSN Ordering Physician: Wil Sotomayor MD Wall Motion Scores -1 - hyperkinesia, 0 - not evaluated, 1 - normal, 2 - hypokinesia, 3 - akinesia, 4 - dyskinesia Limited Echo (TTE) w/wo Limited Doppler, Color Flow, Imaging Agent, Strain, 3D, Bubble Study Result Date: 04/23/2025 1 1 [facility] Heart Station [address] [place] [address] [phone] (fax) Echocardiogram-[facility] Name: KRISTY DOHERTY Study Date: 04/23/2025 07:26 AM B/P: 90 mmHg/74 mmHg HR: 111 bpm Date of : 1955 [facility] [...] minimal pericardial effusion. Procedure Staff Reading Group: [facility] Referring Physician: RUDY KING Gas Inspector: June Brumfield, DEAN, RVT, RN, BSN Ordering Physician: FANI DENNEY Wall Motion Scores -1 - hyperkinesia, 0 - not evaluated, 1 - normal, 2 - hypokinesia, 3 - akinesia, 4 - dyskinesia Transthoracic echo (TTE) limited Result Date: 04/20/2025 1 1 [facility] Heart Station [address] [place] [address] (fax) Echocardiogram-[facility] Name: KRISTY DOHERTY Study Date: 04/20/2025 01:28 PM B/P: 83 mmHg/58 mmHg HR: 96 bpm Date of : 1955 [facility] [...] No pericardial effusion. Procedure Staff Reading Group: [facility] Referring Physician:RUDY KING Gas Inspector: June Brumfield RDCS, RVT, RN, BSN Ordering Physician: VENU SAMANIEGO Wall Motion Scores -1 - hyperkinesia, 0 - not evaluated, 1 - normal, 2 - hypokinesia, 3 - akinesia, 4 - dyskinesia Transthoracic echo (TTE) limited Result Date: 04/19/2025 1 1 [facility] Heart Station [address] [place] [address] [phone] (fax) Echocardiogram-[facility] Name: KRISTY DOHERTY Study Date: 04/19/2025 02:13 PM B/P: / HR: Date of : 1955 Location: [facility] Height: 68 in. Age: 69 year(s) Patient Room: 3183 Weight: 182 lb. Gender: Male Patient Status: InPt BSA: 1.96 m2 Indication: pericardialeffusion, h/o 35mm Watchman FLX Examination: Limited Echo Image Quality: Fair Findings Pericardium: Moderate pericardial effusion baseline. Post pericardiocentesis there is minimal pericardial effusion. Procedure Staff Reading Group: [facility] Referring Physician: RUDY KING Gas Inspector: SAMI Starr, RDCS Ordering Physician: VENU SAMANIEGO Complete Echo (TTE) w/wo Imaging Agent, Strain, 3D, Bubble Study Result Date: 04/19/2025 1 1 [facility] Heart Station [address] [place] [address] [phone] (fax) Echocardiogram-[facility] Name: KRISTY DOHERTY Study Date: 04/19/2025 12:46 PM B/P: 97 mmHg/71 mmHg HR: Date of : 1955 [facility] early tamponade physiology. Procedure Staff Reading Group: [facility] Gas Inspector: Bryanna Cazares RDCS Ordering Physician: HAKAN Canchola signed by MD Mitesh Vernon on 04/19/2025 at 01:44 PM Limited Transthoracic Echo (TTE) w/wo Contrast, Color Flow, Imaging Agent, Strain, 3D, Bubble Study Result Date: 02/07/2025 1 1 [facility] Heart Station [address] [place] [address] [phone] (fax) Echocardiogram-[facility] Name: KRISTY DOHERTY Study Date: 02/07/2025 08:02 AM B/P: 118 mmHg/85 mmHg HR: 63 bpm Date of : 1955 [facility] [...] No pericardial effusion. Procedure Staff Reading Group: [facility] Referring Physician: RUDY KING Gas Inspector: SAMI Starr, RDCS Ordering Physician: CHUCK FUNEZ Transesophageal echo (MASON) Result Date: 12/01/2024 1 [facility] Heart Station [address] [facility] [address] [phone] (fax) Transesophageal Echocardiogram-[facility] Name: KRISTY [...] Location: A MASON was performed in the [employer] [facility] without complications Anesthesia Pharyngeal anesthesia with viscous [...] examination with the fellow Procedure Staff ReadingGroup: [facility] Referring Physician: RUDY KING Gas Inspector: DORIAN Walker Ordering Physician: Hay William MD No nuclear medicine results found for the past 12 months Relevant Imaging Results Transthoracic echo (TTE) limited 1 1 [facility] Heart Station [address] [place] [address] [phone] (fax) Echocardiogram-[facility] Name: KRISTY DOHERTY Study Date: 04/30/2025 07:02 AM B/P: 121 mmHg/100 mmHg HR: 87 bpm Date of : 1955 [facility] [...] with the fellow Procedure Staff Reading Group: [facility] Referring Physician: RUDY KING Gas Inspector: June Brumfield RDCS, RVT, RN, BSN Ordering [...] on telemetry, on amiodarone gtt Paroxysmal A-fib [id number] 3 (heart failure, hypertension, age 65-74) s/p [...] Alba Mena MD Internal medicine resident, PGY-3 [facility] Cosigned by Mitesh Vernon MD at 05/02/2025 [...] s/p Watchman procedure, who was transferred from [place] with initial chief complaint of chest and [...] Last Dose Status albuterol 90 mcg/actuation inhaler [id number] Inhale 1 puff 2 times daily. Historical ProviderMD Active allopurinol (Zyloprim) 300 mg tablet [id number] Yes Take 300 mg by mouth in the morning. Historical ProviderMD 04/18/2025 Morning Active amoxicillin (Amoxil) 500 mg tablet [id number] No Take 4 tablets (2,000 mg) by mouth 1 (one) time if needed (30-60 minute prior to dental procedures) for up to 20 doses. Patient not taking: Reported on 04/19/2025 Hay William MD Unknown Active aspirin 81 mg chewable tablet [id number] Yes Chew 1 tablet (81 mg) with breakfast. Hay William MD 04/18/2025 Morning Active atorvastatin (Lipitor) 40 mg tablet [id number] Yes Take 1 tablet (40 mg) by mouth at bedtime. Hay William MD 04/18/2025 Bedtime Active clopidogrel (Plavix) 75 mg tablet [id number] Yes Take 1 tablet (75 mg) by mouth in the morning. Hay William MD 04/18/2025 Morning Active dapagliflozin propanediol (Farxiga) 10 mg [id number] Yes Take 1 tablet (10 mg) by mouth once daily asdirected. Shania Chauhan CNP 04/18/2025 Morning Active Dupixent Syringe 300 mg/2 mL syringe injection [id number] No Inject 300 mg under the skin every 14 (fourteen) days. Historical Provider, 04/07/2025 Active fluticasone (Flonase) 50 mcg/actuation nasal spray [id number] Yes Administer 1 spray into each nostril two times daily. Shake gently. Before first use, prime pump. After use, clean tip and replace cap.Historical Provider, 04/18/2025 Bedtime Active fluticasone propion-salmeteroL (Advair Diskus) 500-50 mcg/dose diskus inhaler [id number] Yes Inhale 1puff two times daily. Historical ProviderMD 04/18/2025 Bedtime Active metoprolol succinate XL (Toprol-XL) 50 mg 24 hr tablet [id number] Yes Take 1 tablet (50 mg) by mouth once daily as directed. Do not crush or chew. Hay William MD 04/18/2025 Morning Active sacubitril-valsartan (Entresto) 97-103 mg tablet [id number] Yes Take 1 tablet by mouth two times daily. Hay William MD 04/18/2025 Bedtime Active spironolactone (Aldactone) 25 mg tablet [id number] Yes Take 1 tablet (25 mg) by [...] Radiology: Transthoracic echo (TTE) limited 1 1 [facility] Heart Station [address] [place] [address] [phone] (fax) Echocardiogram-[facility] Name: KRISTY DOHERTY Study Date: 04/30/2025 07:02 AM B/P: 121 mmHg/100 mmHg HR: 87 bpm Date of : 1955 [facility] [...] with the fellow Procedure Staff Reading Group: [facility] Referring Physician: RUDY KING Gas Inspector: June Brumfield RDCS, RVT, RN, BSN Ordering [...] watch for renal recovery. No indication for [employer] at this time. Electrolyte replacement per MICU protocol. Continue to avoid nephrotoxic medications. Patient is clear to transfer out of the ICU from Nephrology's standpoint. Nephrology service will continue to follow. Barry Jimenes MD PGY-3, Internal Medicine [facility] Cosigned by Karina Amaya MD at 05/02/2025 [...] an additional personal documentation from me. * Cheryl Way - 05/02/2025 8:27 AM EDT Respiratory Progress Note Patient Name: Kristy Doherty : 1955 Today's Date: 05/02/2025 No Chest X-ray results found for the [...] therapy. Patient will be re-evaluated every24 hours. Cheryl Way 05/02/2025 Cosigned by Yecenia Arreaga RRT at 05/10/2025 7:26 AM EDT * Karsten Gage MD - 05/02/2025 7:22 AM EDT Images from the original note were not included. Medical ICU Progress Note Patient - Kristy Doherty Age - 69 y.o. - 1955 Date of Admission - 04/19/2025 10:46 AM HPI/Hospital Course Subjective Kristy Doherty is an 69 y.o. male who came from [place] with chest pain with radiation to neck andback. Past medical history of heart failure with reduced ejection fraction, hypertension, coronary artery disease, cardiomyopathy nonischemic (AICD placed), hyperlipidemia, atrial fibrillation statuspost [facility] , asthma. Patient presents from [place] with chest pain radiating to the neck [...] elevated wedge pressure and RV pressures. A Witt-Shannan catheter was placed for further monitoring and [...] Results from last 7 days Lab Units 05/02/2531205/01/2530404/30/25 0410 WBC AUTO 10*3/uL 5.94 7.39 8.77 [...] Results from last 7 days Lab Units 05/02/2531205/01/2530404/30/250 04/29/25 0238 ALBUMIN g/dL 3.1* 3.4* 3.2* [...] Radiology Transthoracic echo (TTE) limited 1 1 [facility] Heart Station [address] [place] [address] [phone] (fax) Echocardiogram-[facility] Name: KRISTY DOHERTY Study Date: 04/30/2025 07:02 AM B/P: 121 mmHg/100 mmHg HR: 87 bpm Date of : 1955 Location: [facility] [...] with the fellow Procedure Staff Reading Group: [facility] Referring Physician: RUDY KING Gas Inspector: June Brumfield RDCS, RVT, RN, BSN Ordering [...] infusion, 200 mL/hr, Last Rate: Stopped (05/01/25 125) As Needed: PRN medications: acetaminophen, albuterol, alteplase, [...] on 04/20 due to resolution of effusion Witt Shannan placed on 04/24, has showed improvement [...] progress note was completed using a voice paper cutting machine operator system. Every effort was made to ensure accuracy. However, inadvertent computerized paper cutting machine operator errors may be present. Karsten Gage MD PGY2 IM Resident 05/02/25 7:22 AM Cosigned by Dg Power MD at 05/02/2025 2:48 PM EDT Associated [...] management plan was coordinated * Shay Isaac, NASIR - 05/01/2025 1:52 PM EDT Respiratory Progress [...] Patient will be re-evaluated every24 hours. Shay Isaac RRT 05/01/2025 * Daron Trevino PT - 05/01/2025 10:25 AM EDT Physical Therapy Name: Kristy Doherty Date of : 1955 Today's Date: 05/01/25 Pt is unable to be seen for therapy at this time secondary to: acute renal injury on CRRT. Will check back and complete therapy session as appropriate. Check No Charge Time attempted: 944 Daron Trevino PT, DPT * Diana Beltran OT - 05/01/2025 9:45 AM EDT Occupational [...] Patient : Kristy Doherty; 69 y.o. Location: Attending: Dg Power MD Admit Date: 04/19/2025 Hospital Day: 12 Reason for Consult: Severe LINDA in setting of Cardiogenic Shock Subjective: History of present illness: Kristy Doherty is a 69 y.o. male with PMHx significant for CAD, Atrial fibrillation s/p Watchman procedure, who was transferred from [place] with initial chief complaint of chest and [...] mL/kg) [I.V.:7547.1 (92.8 mL/kg); IV Piggyback:300] Out: 54910 (166.5 mL/kg) [Urine:525 (0.2 mL/kg/hr); Other:14892] Weight: 81.3 kg Vital signs: Temperature: Temp: [...] Last Dose Status albuterol 90 mcg/actuation inhaler [id number] Inhale 1 puff 2 times daily. Historical Provider, Active allopurinol (Zyloprim) 300 mg tablet [id number] Yes Take 300 mg by mouth in the morning. Historical Provider, 04/18/2025 Morning Active amoxicillin (Amoxil) 500 mg tablet [id number] No Take 4 tablets (2,000 mg) by mouth 1 (one) time if needed (30-60 minute prior to dental procedures) for up to 20 doses. Patient not taking: Reported on 04/19/2025 Hay William MD Unknown Active aspirin 81 mg chewable tablet [id number] Yes Chew 1 tablet (81 mg) with breakfast. Hay William MD 04/18/2025 Morning Active atorvastatin (Lipitor) 40 mg tablet [id number] Yes Take 1 tablet (40 mg) by mouth at bedtime. Hay William MD 04/18/2025 Bedtime Active clopidogrel (Plavix) 75 mg tablet [id number] Yes Take 1 tablet (75 mg) by mouth in the morning. Hay William MD 04/18/2025 Morning Active dapagliflozin propanediol (Farxiga) mg [id number] Yes Take 1 tablet (10 mg) by mouth once daily asdirected. Shania Chauhan CNP 04/18/2025 Morning Active Dupixent Syringe 300 mg/2 mL syringe injection [id number] No Inject 300 mg under the skin every 14 (fourteen) days. Historical Provider, 04/07/2025 Active fluticasone (Flonase) 50 mcg/actuation nasal spray [id number] Yes Administer 1 spray into each nostril two times daily. Shake gently. Before first use, prime pump. After use, clean tip and replace cap.Historical Provider, 04/18/2025 Bedtime Active fluticasone propion-salmeteroL (Advair Diskus) 500-50 mcg/dose diskus inhaler [id number] Yes Inhale 1puff two times daily. Historical Provider, 04/18/2025 Bedtime Active metoprolol succinate XL (Toprol-XL) 50 mg 24 hr tablet [id number] Yes Take 1 tablet (50 mg) by mouth once daily as directed. Do not crush or chew. Hay William MD 04/18/2025 Morning Active sacubitril-valsartan (Entresto) 97-103 mg tablet [id number] Yes Take 1 tablet by mouth two times daily. Hay William MD 04/18/2025 Bedtime Active spironolactone (Aldactone) 25 mg tablet [id number] Yes Take 1 tablet (25 mg) by [...] Radiology: Transthoracic echo (TTE) limited 1 1 [facility] Heart Station [address] [place] [address] [phone] (fax) Echocardiogram-[facility] Name: KRISTY DOHERTY Study Date: 04/30/2025 07:02 AM B/P: 121 mmHg/100 mmHg HR: 87 bpm Date of : 1955 Location: [facility] [...] with the fellow Procedure Staff Reading Group: [facility] Referring Physician: RUDY KING Gas Inspector: June Brumfield RDCS, RVT, RN, BSN Ordering [...] Abrilll continue to follow along with you. Igor Greene MD PGY 2 home and family living professor [facility] nephrology Cosigned by Karina Amaya MD at [...] Value Ventricular Rate 120 Atrial Rate 120 MI Interval 198 QRS DURATION 102 QT Interval 294 QTC CALCULATION(BAZETT) 415 P Milton 64 R-Milton 38 T Wave Milton 116 Impression Sinus tachycardia Low voltage QRS Septal infarct , age undetermined Abnormal ECG When compared with ECG of 19-APR-2025 18:24, Premature ventricular complexes are no longer Present Confirmed by Jeffy VERNON, MITESH Pruett (57) on 04/23/2025 8:14:48 AM Lab Results Component Value Date TROPONINI 0.04 07/02/2022 Transthoracic echo (TTE) limited Result Date: 04/30/2025 1 1 [facility] Heart Station [address] [place] [address] [phone] (fax) Echocardiogram-[facility] Name: KRISTY DOHERTY Study Date: 04/30/2025 07:02 AM B/P: 121 mmHg/100 mmHg HR: 87 bpm Date of : 1955 Location:[facility] Height: 68 in. Age: 69 [...] with the fellow Procedure Staff Reading Group: [facility] Referring Physician: RUDY KING Gas Inspector: June Brumfield RDCS,RVT, RN, BSN Ordering Physician: Wil Sotomayor MD Wall Motion Scores -1 - hyperkinesia, 0 - not evaluated, 1 - normal, 2 - hypokinesia, 3 - akinesia, 4 - dyskinesia Limited Echo (TTE) w/wo Limited Doppler, Color Flow, Imaging Agent, Strain, 3D, Bubble Study Result Date: 04/23/2025 1 1 [facility] Heart Station [address] [place] [address] [phone] (fax) Echocardiogram-[facility] Name: KRISTY DOHERTY Study Date: 04/23/2025 07:26 AM B/P: 90 mmHg/74 mmHg HR: 111 bpm Date of : 1955 [facility]: [facility] [...] minimal pericardial effusion. Procedure Staff Reading Group: [facility] Referring Physician: RUDY KING Gas Inspector: June Brumfield RDCS, RVT, RN, BSN Ordering Physician: FANI DENNEY Wall Motion Scores -1 - hyperkinesia, 0 - not evaluated, 1 - normal, 2 - hypokinesia, 3 - akinesia, 4 - dyskinesia Transthoracic echo (TTE) limited Result Date: 04/20/2025 1 1 [facility] Heart Station [address] [place] [address] [phone] (fax) Echocardiogram-[facility] Name: KRISTY DOHERTY Study Date: 04/20/2025 01:28 PM B/P: 83 mmHg/58 mmHg HR: 96 bpm Date of : 1955 [facility]: [facility] [...] No pericardial effusion. Procedure Staff Reading Group: [facility] Referring Physician:RUDY KING Gas Inspector: June Brumfield RDCS, RVT, RN, BSN Ordering Physician: VENU SAMANIEGO Wall Motion Scores -1 - hyperkinesia, 0 - not evaluated, 1 - normal, 2 - hypokinesia, 3 - akinesia, 4 - dyskinesia Transthoracic echo (TTE) limited Result Date: 04/19/2025 1 1 [facility] Heart Station [address] [facility] [place] [address] [phone] (fax) Echocardiogram-[facility] Name: KRISTY DOHERTY Study Date: 04/19/2025 02:13 PM B/P: / HR: Date of : 1955 Location: [facility] Height: 68 in. Age: 69 year(s) Patient Room: 3183 Weight: 182 lb. Gender: Male Patient Status: InPt BSA: 1.96 m2 Indication: pericardialeffusion, h/o 35mm Watchman FLX Examination: Limited Echo Image Quality: Fair Findings Pericardium: Moderate pericardial effusion baseline. Post pericardiocentesis there is minimal pericardial effusion. Procedure Staff Reading Group: [facility] Referring Physician: RUDY KING Gas Inspector: SAMI Starr, RDCS Ordering Physician: VENU SAMANIEGO Complete Echo (TTE) w/wo Imaging Agent, Strain, 3D, Bubble Study Result Date: 04/19/2025 1 1 [facility] Heart Station [address] [place] [address] (fax) Echocardiogram-[facility] Name: KRISTY DOHERTY Study Date: 04/19/2025 12:46 PM B/P: 97 mmHg/71 mmHg HR: Date of : 1955 [facility] [...] early tamponade physiology. Procedure Staff Reading Group: [facility] Gas Inspector: Bryanna Cazares RDCS Ordering Physician: HAKAN WESTON Limited Transthoracic Echo (TTE) w/wo Contrast, Color Flow, Imaging Agent, Strain, 3D, Bubble Study Result Date: 02/07/2025 1 1 [facility] Heart Station [address] [address] [phone] (fax) Echocardiogram-[facility] Name: KRISTY DOHERTY Study Date: 02/07/2025 08:02 AM B/P: 118 mmHg/85 mmHg HR: 63 bpm Date of : 1955 Location: [facility] Height: 68 in. Age: 69 year(s) Patient Room: [facility] Weight: 186 lb. Gender: Male Patient Status: [...] No pericardial effusion. Procedure Staff Reading Group: [facility] Referring Physician: RUDY KING Gas Inspector: SAMI Starr, RDCS Ordering Physician: CHUCK FUNEZ Transesophageal echo (MASON) Result Date: 12/01/2024 1 [facility] Heart Station [address] [place] [address] [phone] (fax) Transesophageal Echocardiogram-[facility] Name: KRISTY [...] Location: A MASON was performed in the [employer] without complications Anesthesia Pharyngeal anesthesia with viscous [...] examination with the fellow Procedure Staff ReadingGroup: [facility] Referring Physician: RUDY KING Gas Inspector: DORIAN Walker Ordering Physician: Hay William MD No nuclear medicine results found for the past 12 months Relevant Imaging Results Transthoracic echo (TTE) limited 1 1 [facility] Heart Station [address] [place] [address] [phone] (fax) Echocardiogram-[facility] Name: KRISTY DOHERTY Study Date: 04/30/2025 07:02 AM B/P: 121 mmHg/100 mmHg HR: 87 bpm Date of : 1955 Location: [facility] [...] with the fellow Procedure Staff Reading Group: [facility] Referring Physician: RUDY KING Gas Inspector: June Brumfield RDCS, RVT, RN, BSN Ordering [...] on telemetry, on amiodarone gtt Paroxysmal A-fib [id number] (heart failure, hypertension, age 65-74) s/p [...] follow. Please call with any questions. Felicita Mooeny MD Internal medicine resident, PGY-2 [facility] Cosigned by Mitesh Vernon MD at 05/01/2025 [...] [facility] Age [facility] 69 [facility] 1955 [id number] Date of Admission - 04/19/2025 10:46 AM HPI/Hospital Course Subjective Kristy Doherty is an 69 y.o. male who came from [place] with chest pain with radiation to neck andback. Past medical history of heart failure with reduced ejection fraction, hypertension, coronary artery disease, cardiomyopathy nonischemic (AICD placed), hyperlipidemia, atrial fibrillation statuspost [facility] , asthma. Patient presents from [place] with chest pain radiating to the neck [...] elevated wedge pressure and RV pressures. A Witt-Shannan catheter was placed for further monitoring and [...] Results from last 7 days Lab Units 05/01/2530404/30/2540904/29/25 0304 WBC AUTO 10*3/uL 7.39 8.77 9.76 HEMOGLOBIN g/dL 8.6* 8.2* 8.3* HEMATOCRIT % 25.1* 23.9* 23.4* PLATELETS AUTO 10*3/uL 159 143* 133* Coagulation: Metabolic Panel: Results from last 7 days Lab Units 05/01/2530405/01/257 04/30/252011 POTASSIUM mmol/L 3.7 3.8 3.5 CHLORIDE mmol/L 94* 94* 94* CO2 mmol/L 35* 35* 34* BUN mg/dL 12 13 14 CREATININE mg/dL 1.04 1.21 1.19 GLUCOSE mg/dL 115* 113* 135* CALCIUM mg/dL 7.9* 7.8* 7.9* MAGNESIUM mg/dL 2.0 2.1 1.8* Liver Panel: Results from last 7 days Lab Units 05/01/2530404/30/2540904/29/25 0238 ALBUMIN g/dL 3.4* 3.2* 3.1* BILIRUBIN [...] Radiology Transthoracic echo (TTE) limited 1 1 [facility] Heart Station [address] [facility] [address] [phone] (fax) Echocardiogram-[facility] Name: KRISTY DOHERTY Study Date: 04/30/2025 07:02 AM B/P: 121 mmHg/100 mmHg HR: 87 bpm Date of : 1955 [facility]: [facility] [...] with the fellow Procedure Staff Reading Group: [facility] Referring Physician: RUDY KING Gas Inspector: June Brumfield RDCS, RVT, RN, BSN Ordering [...] on 04/20 due to resolution of effusion Witt Shannan placed on 04/24, has showed improvement [...] progress note was completed using a voice paper cutting machine operator system. Every effort was made to ensure accuracy. However, inadvertent computerized paper cutting machine operator errors may be present. Karsten Gage MD [...] 04/19/2025 10:46 AM HPI/Hospital Course Subjective Kristy Dhoerty is an 69 y.o. male who came from [place] with chest pain with radiation to neck andback. Past medical history of heart failure with reduced ejection fraction, hypertension, coronary artery disease, cardiomyopathy nonischemic (AICD placed), hyperlipidemia, atrial fibrillation statuspost Watchman 7-2022-25, asthma. Patient presents from [place] with chest pain radiating to the neck [...] elevated wedge pressure and RV pressures. A Witt-Shannan catheter was placed for further monitoring and [...] Radiology Transthoracic echo (TTE) limited 1 1 [facility] Heart Station [address] [place] [address] [phone] (fax) Echocardiogram-[facility] Name: KRISTY DOHERTY Study Date: 04/30/2025 07:02 AM B/P: 121 mmHg/100 mmHg HR: 87 bpm Date of : 1955 [facility]: [facility] [...] with the fellow Procedure Staff Reading Group: [facility] Referring Physician: RUDY KING Gas Inspector: June Brumfield RDCS, RVT, RN, BSN Ordering [...] on 04/20 due to resolution of effusion Witt Shannan placed on 04/24, has showed improvement [...] Dobutamine, Lines (location & placement): L fem yolande robertson DVT prophylaxis: Heparin subq Diet: Regular Code Status: FULL This progress note was completed using a voice paper cutting machine operator system. Every effort was made to ensure accuracy. However, inadvertent computerized paper cutting machine operator errors may be present. Karsten Gage MD [...] Patient : Kristy Doherty; 69 y.o. Location: [facility]/3217-01 Attending: Dg Power MD Admit Date: 04/19/2025 Hospital Day: 11 Reason for Consult: Severe LINDA in setting of Cardiogenic Shock Subjective: History of present illness: Kristy Doherty is a 69 y.o. male with PMHx significant for CAD, Atrial fibrillation s/p Watchman procedure, who was transferred from [place] with initial chief complaint of chest and [...] [P.O.:440; I.V.:8111.1 (100.3 mL/kg); IV Piggyback:350] Out: 04837 (167.1 mL/kg) [Urine:25 (0 mL/kg/hr); Other:57233] Weight: 80.9 kg Vital signs: Temperature: Temp: [...] 2.5-15 mcg/kg/min, Last Rate: 1 mcg/kg/min (04/30/25 09) epoprostenol (Veletri) 500 mcg in sodium chloride 0.9 % 100 mL (5 mcg/mL) infusion, 4 ng/kg/min, Last Rate: 4 ng/kg/min (04/30/25899) [Held by provider] milrinone, 0.25 mcg/kg/min, Last Rate: Stopped (04/26/25 1112) norEPINEPHrine, 0.01-2 mcg/kg/min, Last Rate: Stopped (04/28/25 0530) sodium bicarbonate 150 mEq in sterile water 1,000 mL infusion, 200 mL/hr, Last Rate: 200 mL/hr (04/30/25 09) vasopressin, 0.04 Units/min, Last Rate: Stopped (04/28/25 [...] Last Dose Status albuterol 90 mcg/actuation inhaler [id number] Inhale 1 puff 2 times daily. Historical Provider, Active allopurinol (Zyloprim) 300 mg tablet [id number] Yes Take 300 mg by mouth in the morning. Historical Provider, 04/18/2025 Morning Active amoxicillin (Amoxil) 500 mg tablet [id number] No Take 4 tablets (2,000 mg) by mouth 1 (one) time if needed (30-60 minute prior to dental procedures) for up to 20 doses. Patient not taking: Reported on 04/19/2025 Hay William MD Unknown Active aspirin 81 mg chewable tablet [id number] Yes Chew 1 tablet (81 mg) with breakfast. Hay William MD 04/18/2025 Morning Active atorvastatin (Lipitor) 40 mg tablet [id number] Yes Take 1 tablet (40 mg) by mouth at bedtime. Hay William MD 04/18/2025 Bedtime Active clopidogrel (Plavix) 75 mg tablet [id number] Yes Take 1 tablet (75 mg) by mouth in the morning. Hay William MD 04/18/2025 Morning Active dapagliflozin propanediol (Farxiga) 10 mg [id number] Yes Take 1 tablet (10 mg) by mouth once daily asdirected. Shania Chauhan CNP 04/18/2025 Morning Active Dupixent Syringe 300 mg/2 mL syringe injection [id number] No Inject 300 mg under the skin every 14 (fourteen) days. Historical ProviderMD 04/07/2025 Active fluticasone (Flonase) 50 mcg/actuation nasal spray [id number] Yes Administer 1 spray into each nostril two times daily. Shake gently. Before first use, prime pump. After use, clean tip and replace cap.German ProviderMD 04/18/2025 Bedtime Active fluticasone propion-salmeteroL (Advair Diskus) 500-50 mcg/dose diskus inhaler [id number] Yes Inhale 1puff two times daily. Historical ProviderMD 04/18/2025 Bedtime Active metoprolol succinate XL (Toprol-XL) 50 mg 24 hr tablet [id number] Yes Take 1 tablet (50 mg) by mouth once daily as directed. Do not crush or chew. Hay William MD 04/18/2025 Morning Active sacubitril-valsartan (Entresto) 97-103 mg tablet [id number] Yes Take 1 tablet by mouth two times daily. Hay William MD 04/18/2025 Bedtime Active spironolactone (Aldactone) 25 mg tablet [id number] Yes Take 1 tablet (25 mg) by [...] Velma continue to follow along with you. Igor Greene MD PGY 2 home and family living professor [facility] nephrology Cosigned by Karina Amaya MD at [...] ??F) -- 86 19 99 % -- 04/29/25 1958 -- -- -- 84 17 97 % [...] Value Ventricular Rate 120 Atrial Rate 120 MI Interval 198 QRS DURATION 102 QT Interval 294 QTC CALCULATION(BAZETT) 415 P Milton 64 R-Milton 38 T Wave Milton 116 Impression Sinus tachycardia Low voltage QRS [...] Bubble Study Result Date: 04/23/2025 1 1 [facility] Heart Station [address] [facility] [address] [phone] (fax) Echocardiogram-[facility] Name: KRISTY DOHERTY Study Date: 04/23/2025 07:26 AM B/P: 90 mmHg/74 mmHg HR: 111 bpm Date of : 1955 [facility] [...] minimal pericardial effusion. Procedure Staff Reading Group: [facility] Referring Physician: RUDY KING Gas Inspector: June Brumfield, DEAN, RVT, RN, BSN Ordering Physician: FANI DENNEY Wall Motion Scores -1 - hyperkinesia, 0 - not evaluated, 1 - normal, 2 - hypokinesia, 3 - akinesia, 4 - dyskinesia Transthoracic echo (TTE) limited Result Date: 04/20/2025 1 1 [facility] Heart Station [address] [place] [address] [phone] (fax) Echocardiogram-[facility] Name: KRISTY DOHERTY Study Date: 04/20/2025 01:28 PM B/P: 83 mmHg/58 mmHg HR: 96 bpm Date of : 1955 [facility]: [facility] [...] No pericardial effusion. Procedure Staff Reading Group: [facility] Referring Physician:RUDY KING Gas Inspector: June Brumfield RDCS, RVT, RN, BSN Ordering Physician: VENU SAMANIEGO Wall Motion Scores -1 - hyperkinesia, 0 - not evaluated, 1 - normal, 2 - hypokinesia, 3 - akinesia, 4 - dyskinesia Transthoracic echo (TTE) limited Result Date: 04/19/2025 1 1 [facility] Heart Station [address] [place] [address] [phone] (fax) Echocardiogram-[facility] Name: KRISTY DOHERTY Study Date: 04/19/2025 02:13 PM B/P: / HR: Date of : 1955 Location: [facility] Height: 68 in. Age: 69 year(s) Patient Room: 3183 Weight: 182 lb. Gender: Male Patient Status: InPt BSA: 1.96 m2 Indication: pericardialeffusion, h/o 35mm Watchman FLX Examination: Limited Echo Image Quality: Fair Findings Pericardium: Moderate pericardial effusion baseline. Post pericardiocentesis there is minimal pericardial effusion. Procedure Staff Reading Group: [facility] Referring Physician: RUDY KING Gas Inspector: SAMI Starr, RDCS Ordering Physician: VENU SAMANIEGO Complete Echo (TTE) w/wo Imaging Agent, Strain, 3D, Bubble Study Result Date: 04/19/2025 1 1 [facility] Heart Station [address] [place] [address] [phone] (fax) Echocardiogram-[facility] Name: KRISTY DOHERTY Study Date: 04/19/2025 12:46 PM B/P: 97 mmHg/71 mmHg HR: Date of : 1955 [facility] early tamponade physiology. Procedure Staff Reading Group: [facility] [facility] Gas Inspector: Bryanna Cazares RDCS Ordering Physician: HAKAN Canchola signed by MD Mitesh Vernon on 04/19/2025 at 01:44 PM Limited Transthoracic Echo (TTE) w/wo Contrast, Color Flow, Imaging Agent, Strain, 3D, Bubble Study Result Date: 02/07/2025 1 1 [facility] Heart Station [address] [place] [address] [phone] (fax) Echocardiogram-[facility] Name: KRISTY DOHERTY Study Date: 02/07/2025 08:02 AM B/P: 118 mmHg/85 mmHg HR: 63 bpm Date of : 1955 [facility]: [facility] [...] No pericardial effusion. Procedure Staff Reading Group: [facility] Referring Physician: RUDY KING Gas Inspector: SAMI Starr, RDCS Ordering Physician: CHUCK FUNEZ Transesophageal echo (MASON) Result Date: 12/01/2024 1 [facility] Heart Station [address] [place] [address] [phone] (fax) Transesophageal Echocardiogram-[facility] Name: KRISTY [...] Location: A MASON was performed in the [employer] [facility] without complications Anesthesia Pharyngeal anesthesia with viscous [...] examination with the fellow Procedure Staff ReadingGroup: [facility] Referring Physician: RUDY KING Gas Inspector: DORIAN Walker Ordering Physician: Hay William MD [...] on telemetry, on amiodarone gtt Paroxysmal A-fib [id number] 3 (heart failure, hypertension, age 65-74) s/p [...] Felicita Mooney MD Internal medicine resident, PGY-2 [facility] Cosigned by Mitesh Vernon MD at 04/30/2025 [...] additional personal documentation from me. * Chely Garcia CRT - 04/30/2025 8:14 AM EDT Respiratory Progress [...] s/p Watchman procedure, who was transferred from [place] with initial chief complaint of chest and [...] Last Dose Status albuterol 90 mcg/actuation inhaler [id number] Inhale 1 puff 2 times daily. Historical ProviderMD Active allopurinol (Zyloprim) 300 mg tablet [id number] Yes Take 300 mg by mouth in the morning. German Walden MD 04/18/2025 Morning Active amoxicillin (Amoxil) 500 mg tablet [id number] No Take 4 tablets (2,000 mg) by mouth 1 (one) time if needed (30-60 minute prior to dental procedures) for up to 20 doses. Patient not taking: Reported on 04/19/2025 Hay William MD Unknown Active aspirin 81 mg chewable tablet [id number] Yes Chew 1 tablet (81 mg) with breakfast. Hay William MD 04/18/2025 Morning Active atorvastatin (Lipitor) 40 mg tablet [id number] Yes Take 1 tablet (40 mg) by mouth at bedtime. Hay William MD 04/18/2025 Bedtime Active clopidogrel (Plavix) 75 mg tablet [id number] Yes Take 1 tablet (75 mg) by mouth in the morning. Hay William MD 04/18/2025 Morning Active dapagliflozin propanediol (Farxiga) 10 mg [id number] Yes Take 1 tablet (10 mg) by mouth once daily asdirected. Shania Chauhan CNP 04/18/2025 Morning Active Dupixent Syringe 300 mg/2 mL syringe injection [id number] No Inject 300 mg under the skin every 14 (fourteen) days. German Walden MD 04/07/2025 Active fluticasone (Flonase) 50 mcg/actuation nasal spray [id number] Yes Administer 1 spray into each nostril two times daily. Shake gently. Before first use, prime pump. After use, clean tip and replace cap.German Walden MD 04/18/2025 Bedtime Active fluticasone propion-salmeteroL (Advair Diskus) 500-50 mcg/dose diskus inhaler [id number] Yes Inhale 1puff two times daily. German ProviderMD 04/18/2025 Bedtime Active metoprolol succinate XL (Toprol-XL) 50 mg 24 hr tablet [id number] Yes Take 1 tablet (50 mg) by mouth once daily as directed. Do not crush or chew. Hay William MD 04/18/2025 Morning Active sacubitril-valsartan (Entresto) 97-103 mg tablet [id number] Yes Take 1 tablet by mouth two times daily. Hay William MD 04/18/2025 Bedtime Active spironolactone (Aldactone) 25 mg tablet [id number] Yes Take 1 tablet (25 mg) by [...] Wewill continue to follow along with you. - [...] today receiving CRRT / CVVHD * Darcy Alfredo, JEWEL BEARING MAKER - 04/29/2025 8:16 AM EDT Respiratory Progress [...] an 69 y.o. male who came from [place] with chest pain with radiation to neck andback. Past medical history of heart failure with reduced ejection fraction, hypertension, coronary artery disease, cardiomyopathy nonischemic (AICD placed), hyperlipidemia, atrial fibrillation statuspost Watchman , asthma. Patient presents from [place] with chest pain radiating to the neck [...] elevated wedge pressure and RV pressures. A Witt-Shannan catheter was placed for further monitoring and the patient was transferred to the medical ICU. SUBJECTIVE Patient seen and examined the bedside this morning. He does endorse a new wet cough with pleuritic chest pain when he coughs. Chest x-ray and Mucinex ordered. His hematoma on the right side of his neck where the Witt catheter was placed is improving. Remains on [...] gas pattern. Approved by:Phill Orellana 1:10 AM. IEl,have reviewed the image(s) and agree with the [...] on 04/20 due to resolution of effusion Witt Shannan placed on 04/24, has showed improvement [...] increased cough and crackles on exam today (10/12) prompting a CXR CXR shows vascular congestion [...] support: Dobutamine, Lines (location & placement): L yolande bridges DVT prophylaxis: Heparin subq Diet: Regular Code Status: FULL This progress note was completed using a voice paper cutting machine operator system. Every effort was made to ensure accuracy. However, inadvertent computerized paper cutting machine operator errors may be present. Karsten Gage MD [...] -- -- 87 22 98 % -- 10/11/25 2000 36.2 ??C (97.2 ??F) Axillary 88 [...] Value Ventricular Rate 120 Atrial Rate 120 MI Interval 198 QRS DURATION 102 QT Interval 294 QTC CALCULATION(BAZETT) 415 P Milton 64 R-Milton 38 T Wave Milton 116 Impression Sinus tachycardia Low voltage QRS [...] Bubble Study Result Date: 04/23/2025 1 1 [facility] Heart Station [address] [place] [address] [phone] (fax) Echocardiogram-[facility] Name: KRISTY DOHERTY Study Date: 04/23/2025 07:26 AM B/P: 90 mmHg/74 mmHg HR: 111 bpm Date of : 1955 Location: [facility] [...] minimal pericardial effusion. Procedure Staff Reading Group: [facility] Referring Physician: RUDY KING Gas Inspector: June Brumfield RDCS, RVT, RN, BSN Ordering Physician: FANI DENNEY Wall Motion Scores -1 - hyperkinesia, 0 - not evaluated, 1 - normal, 2 - hypokinesia, 3 - akinesia, 4 - dyskinesia Transthoracic echo (TTE) limited Result Date: 04/20/2025 1 1 [facility] Heart Station [address] [place] [address] [phone] (fax) Echocardiogram-[facility] Name: KRISTY DOHERTY Study Date: 04/20/2025 01:28 PM B/P: 83 mmHg/58 mmHg HR: 96 bpm Date of : 1955 Location: [facility] [...] No pericardial effusion. Procedure Staff Reading Group: [facility] Referring Physician:RUDY KING Gas Inspector: June Brumfield RDCS, RVT, RN, BSN Ordering Physician: VENU SAMANIEGO Wall Motion Scores -1 - hyperkinesia, 0 - not evaluated, 1 - normal, 2 - hypokinesia, 3 - akinesia, 4 - dyskinesia Transthoracic echo (TTE) limited Result Date: 04/19/2025 1 1 [facility] Heart Station [address] [place] [address] [phone] (fax) Echocardiogram-[facility] Name: KRISTY DOHERTY Study Date: 04/19/2025 02:13 PM B/P: / HR: Date of : 1955 Location: [facility] Height: 68 in. Age: 69 year(s) Patient Room: 3183 Weight: 182 lb. Gender: Male Patient Status: InPt BSA: 1.96 m2 Indication: pericardialeffusion, h/o 35mm Watchman FLX Examination: Limited Echo Image Quality: Fair Findings Pericardium: Moderate pericardial effusion baseline. Post pericardiocentesis there is minimal pericardial effusion. Procedure Staff Reading Group: [facility] Referring Physician: RUDY KING Gas Inspector: SAMI Starr, RDCS Ordering Physician: VENU SAMANIEGO Complete Echo (TTE) w/wo Imaging Agent, Strain, 3D, Bubble Study Result Date: 04/19/2025 1 1 [facility] Heart Station [address] [place] [address] [phone] (fax) Echocardiogram-[facility] Name: KRISTY DOHERTY Study Date: 04/19/2025 12:46 PM B/P: 97 mmHg/71 mmHg HR: Date of : 1955 [facility] [...] early tamponade physiology. Procedure Staff Reading Group: [facility] Gas Inspector: Bryanna Cazares RDCS Ordering Physician: HAKAN Moodytronically signed by MD Mitesh Vernon on 04/19/2025 at 01:44 PM Limited Transthoracic Echo (TTE) w/wo Contrast, Color Flow, Imaging Agent, Strain, 3D, Bubble Study Result Date: 02/07/2025 1 1 [facility] Heart Station [address] [place] [address] [phone] (fax) Echocardiogram-[facility] Name: KRISTY DOHERTY Study Date: 02/07/2025 08:02 AM B/P: 118 mmHg/85 mmHg HR: 63 bpm Date of : 1955 Location: [facility] Height: 68 in. Age: 69 year(s) Patient Room: [facility] Weight: 186 lb. Gender: Male Patient Status: [...] No pericardial effusion. Procedure Staff Reading Group: [facility] Referring Physician: RUDY KING Gas Inspector: SAMI Starr, RDCS Ordering Physician: CHUCK FUNEZ Transesophageal echo (MASON) Result Date: 12/01/2024 1 [facility] Heart Station [address] [place] [address] [phone] (fax) Transesophageal Echocardiogram-[facility] Name: KRISTY [...] Location: A MASON was performed in the [employer] without complications Anesthesia Pharyngeal anesthesia with viscous [...] examination with the fellow Procedure Staff ReadingGroup: [facility] Referring Physician: RUDY KING Gas Inspector: DORIAN Walker Ordering Physician: Hay William MD [...] * Nonobstructive bowel gas pattern. Approved by:Phill Morgann1 1:10 AM. I, El Gomes,have reviewed the [...] on telemetry, on amiodarone gtt Paroxysmal A-fib [id number] 3 (heart failure, hypertension, age 65-74) s/p [...] questions. Sagrario Martel MD Cardiovascular disease fellow [facility] Cosigned by Wil Sotomayor MD at 04/29/2025 [...] -- 04/27/252114 -- 97 -- -- -- 04/27/252099 -- 85 26 95 % -- 04/27/252030 -- 83 22 94 % -- 04/27/25 [...] Value Ventricular Rate 120 Atrial Rate 120 MI Interval 198 QRS DURATION 102 QT Interval 294 QTC CALCULATION(BAZETT) 415 P Milton 64 R-Milton 38 T Wave Milton 116 Impression Sinus tachycardia Low voltage QRS [...] Bubble Study Result Date: 04/23/2025 1 1 [facility] Heart Station [address] [place] [address] [phone] (fax) Echocardiogram-[facility] Name: KRISTY DOHERTY Study Date: 04/23/2025 07:26 AM B/P: 90 mmHg/74 mmHg HR: 111 bpm Date of : 1955 Location: [facility] [...] minimal pericardial effusion. Procedure Staff Reading Group: [facility] Referring Physician: RUDY KING Gas Inspector: June Brumfield RDCS, RVT, RN, BSN Ordering Physician: FANI DENNEY Wall Motion Scores -1 - hyperkinesia, 0 - not evaluated, 1 - normal, 2 - hypokinesia, 3 - akinesia, 4 - dyskinesia Transthoracic echo (TTE) limited Result Date: 04/20/2025 1 1 [facility] Heart Station [address] [place] [address] [phone] (fax) Echocardiogram-[facility] Name: KRISTY DOHERTY Study Date: 04/20/2025 01:28 PM B/P: 83 mmHg/58 mmHg HR: 96 bpm Date of : 1955 Location: [facility] [...] No pericardial effusion. Procedure Staff Reading Group: [facility] Referring Physician:RUDY KING Gas Inspector: June Brumfield RDCS, RVT, RN, BSN Ordering Physician: VENU SAMANIEGO Wall Motion Scores -1 - hyperkinesia, 0 - not evaluated, 1 - normal, 2 - hypokinesia, 3 - akinesia, 4 - dyskinesia Transthoracic echo (TTE) limited Result Date: 04/19/2025 1 1 [facility] Heart Station [address] [place] [address] [phone] (fax) Echocardiogram-[facility] Name: KRISTY DOHERTY Study Date: 04/19/2025 02:13 PM B/P: / HR: Date of : 1955 Location: [facility] Height: 68 in. Age: 69 year(s) Patient Room: 3183 Weight: 182 lb. Gender: Male Patient Status: InPt BSA: 1.96 m2 Indication: pericardialeffusion, h/o 35mm Watchman FLX Examination: Limited Echo Image Quality: Fair Findings Pericardium: Moderate pericardial effusion baseline. Post pericardiocentesis there is minimal pericardial effusion. Procedure Staff Reading Group: [facility] Referring Physician: RUDY KING Gas Inspector: SAMI Starr, RDCS Ordering Physician: VENU SAMANIEGO Complete Echo (TTE) w/wo Imaging Agent, Strain, 3D, Bubble Study Result Date: 04/19/2025 1 1 [facility] Heart Station [address] [place] [address] [phone] (fax) Echocardiogram-[facility] Name: KRISTY DOHERTY Study Date: 04/19/2025 12:46 PM B/P: 97 mmHg/71 mmHg HR: Date of : 1955 [facility] early tamponade physiology. Procedure Staff Reading Group: [facility] Gas Inspector: Bryanna Cazares RDCS Ordering Physician: HAKAN Canchola signed by MD Mitesh Vernon on 04/19/2025 at 01:44 PM Limited Transthoracic Echo (TTE) w/wo Contrast, Color Flow, Imaging Agent, Strain, 3D, Bubble Study Result Date: 02/07/2025 1 1 [facility] Heart Station [address] [place] [address] [phone] (fax) Echocardiogram-[facility] Name: KRISTY DOHERTY Study Date: 02/07/2025 08:02 AM B/P: 118 mmHg/85 mmHg HR: 63 bpm Date of : 1955 Location: [facility] [...] No pericardial effusion. Procedure Staff Reading Group: [facility] Referring Physician: RUDY KING Gas Inspector: SAMI Starr, RDCS Ordering Physician: CHUCK FUNEZ Transesophageal echo (MASON) Result Date: 12/01/2024 1 [facility] Heart Station [address] [place] [id number] [phone] (fax) Transesophageal Echocardiogram-[facility] Name: KRISTY [...] Location: A MASON was performed in the [employer] without complications Anesthesia Pharyngeal anesthesia with viscous [...] examination with the fellow Procedure Staff ReadingGroup: [facility] Referring Physician: RUDY KING Gas Inspector: DORIAN Walker Ordering Physician: Hay William MD [...] on telemetry, on amiodarone gtt Paroxysmal A-fib [id number] 3 (heart failure, hypertension, age 65-74) s/p [...] questions. Sagrario Martel MD Cardiovascular disease fellow [facility] Cosigned by Wil Sotomayor MD at 04/29/2025 3:53 PM EDT * Darcy Alfredo, [employer]ARING MAKER - 04/28/2025 9:05 AM EDT Respiratory Progress [...] Patient : Kristy Doherty; 69 y.o. Location: Formerly named [facility]7/3217-01 Attending: Pepe Anthony MD Admit Date: 04/19/2025 Hospital Day: 9 Reason for Consult: Severe LINDA in setting of Cardiogenic Shock Subjective: History of present illness: Kristy Doherty is a 69 y.o. male with PMHx significant for CAD, Atrial fibrillation s/p Watchman procedure, who was transferred from [place] with initial chief complaint of chest and [...] 0.5 mg/min, Last Rate: 0.5 mg/min (04/28/25 07) dialysate 3K with bicarb and calcium 5000 mL, 2,000 mL/hr, Last Rate: Stopped (04/28/25 06) DOBUTamine, 2.5-15 mcg/kg/min, Last Rate: 2 mcg/kg/min (04/28/25 07) epoprostenol (Veletri) 500 mcg in sodium [...] Medication Documentation Review Audit Reviewed by Karrie Hill, RN (Registered Nurse) on 04/19/25 at 1111 Medication Order Taking? Sig Documenting Provider Last Dose Status albuterol 90 mcg/actuation inhaler [id number] Inhale 1 puff 2 times daily. Historical ProviderMD Active allopurinol (Zyloprim) 300 mg tablet [id number] Yes Take 300 mg by mouth in the morning. German Walden MD 04/18/2025 Morning Active amoxicillin (Amoxil) 500 mg tablet [id number] No Take 4 tablets (2,000 mg) by mouth 1 (one) time if needed (30-60 minute prior to dental procedures) for up to 20 doses. Patient not taking: Reported on 04/19/2025 Hya William MD Unknown Active aspirin 81 mg chewable tablet [id number] Yes Chew 1 tablet (81 mg) with breakfast. Hay William MD 04/18/2025 Morning Active atorvastatin (Lipitor) 40 mg tablet [id number] Yes Take 1 tablet (40 mg) by mouth at bedtime. Hay William MD 04/18/2025 Bedtime Active clopidogrel (Plavix) 75 mg tablet [id number] Yes Take 1 tablet (75 mg) by mouth in the morning. Hay William MD 04/18/2025 Morning Active dapagliflozin propanediol (Farxiga) 10 mg [id number] Yes Take 1 tablet (10 mg) by mouth once daily asdirected. Shania Chauhan CNP 04/18/2025 Morning Active Dupixent Syringe 300 mg/2 mL syringe injection [id number] No Inject 300 mg under the skin every 14 (fourteen) days. German ProviderMD 04/07/2025 Active fluticasone (Flonase) 50 mcg/actuation nasal spray [id number] Yes Administer 1 spray into each nostril two times daily. Shake gently. Before first use, prime pump. After use, clean tip and replace cap.German Walden MD 04/18/2025 Bedtime Active fluticasone propion-salmeteroL (Advair Diskus) 500-50 mcg/dose diskus inhaler [id number] Yes Inhale 1puff two times daily. German Walden MD 04/18/2025 Bedtime Active metoprolol succinate XL (Toprol-XL) 50 mg 24 hr tablet [id number] Yes Take 1 tablet (50 mg) by mouth once daily as directed. Do not crush or chew. Hay William MD 04/18/2025 Morning Active sacubitril-valsartan (Entresto) 97-103 mg tablet [id number] Yes Take 1 tablet by mouth two times daily. Hay William MD 04/18/2025 Bedtime Active spironolactone (Aldactone) 25 mg tablet [id number] Yes Take 1 tablet (25 mg) by [...] Wewill continue to follow along with you. Kurtis [...] today receiving CRRT / CVVHD. * Marta Rene DO - 04/28/2025 8:23 AM EDT Images from the original note were not included. Medical ICU Progress Note Patient - Kristy Doherty [facility] 69 [facility] 1955 [id number] Date of Admission - 04/19/2025 10:46 AM HPI/Hospital Course Subjective Kristy Doherty is an 69 y.o. male who came from [place] with chest pain with radiation to neck andback. Past medical history of heart failure with reduced ejection fraction, hypertension, coronary artery disease, cardiomyopathy nonischemic (AICD placed), hyperlipidemia, atrial fibrillation statuspost [facility] , asthma. Patient presents from [place] with chest pain radiating to the neck [...] elevated wedge pressure and RV pressures. A Witt-Shannan catheter was placed for further monitoring and [...] last 7 days Lab Units 04/28/25 0321 04/27/257 04/27/25 0536 04/26/25 0305 WBC AUTO 10*3/uL [...] gas pattern. Approved by:Phill Orellana 1:10 AM. IEl,have reviewed the image(s) and agree with the [...] 0.5 mg/min, Last Rate: 0.5 mg/min (04/28/25 07) dialysate 3K with bicarb and calcium 5000 mL, 2,000 mL/hr, Last Rate: Stopped (04/28/25613) DOBUTamine, 2.5-15 mcg/kg/min, Last Rate: 2 mcg/kg/min (04/28/25 07) [Held by provider] milrinone, 0.25 mcg/kg/min, Last Rate: Stopped (04/26/25 1112) norEPINEPHrine, 0.01-2 mcg/kg/min, Last Rate: Stopped (04/28/25 0530) sodium bicarbonate 75 mEq in sodium chloride 0.45 % 1,000 mL infusion, 200 mL/hr, Last Rate: Stopped (04/28/25613) vasopressin, 0.04 Units/min, Last Rate: Stopped (04/28/25 [...] on 04/20 due to resolution of effusion Witt Shannan placed on 04/24, has showed improvement [...] Dobutamine, Lines (location & placement): L fem trialmackenzies, lanier DVT prophylaxis: Heparin subq Diet: Regular Code Status: FULL This progress note was completed using a voice paper cutting machine operator system. Every effort was made to ensure accuracy. However, inadvertent computerized paper cutting machine operator errors may be present. Marta Rene DO [...] down on Levophed. Maintain MAP above 65. Witt was taken out yesterday. Cardiorenal syndrome with [...] Patient : Kristy Doherty; 69 y.o. Location: [id number] Attending: Pepe Anthony MD Admit Date: 04/19/2025 Hospital Day: 8 Reason for Consult: Acute Kidney Injury. History of Present Illness: Kristy Doherty is a 69 y.o. male with PMHx significant for CAD, Atrial fibrillation s/p Watchman procedure, who was transferred from [place] with initial chief complaint of chest and [...] Last Dose Status albuterol 90 mcg/actuation inhaler [id number] Inhale 1 puff 2 times daily. Historical Provider, Active allopurinol (Zyloprim) 300 mg tablet [id number] Yes Take 300 mg by mouth in the morning. Historical Provider, 04/18/2025 Morning Active amoxicillin (Amoxil) 500 mg tablet [id number] No Take 4 tablets (2,000 mg) by mouth 1 (one) time if needed (30-60 minute prior to dental procedures) for up to 20 doses. Patient not taking: Reported on 04/19/2025 Hay William MD Unknown Active aspirin 81 mg chewable tablet [id number] Yes Chew 1 tablet (81 mg) with breakfast. Hay William MD 04/18/2025 Morning Active atorvastatin (Lipitor) 40 mg tablet [id number] Yes Take 1 tablet (40 mg) by mouth at bedtime. Hay William MD 04/18/2025 Bedtime Active clopidogrel (Plavix) 75 mg tablet [id number] Yes Take 1 tablet (75 mg) by mouth in the morning. Hay William MD 04/18/2025 Morning Active dapagliflozin propanediol (Farxiga) 10 mg [id number] Yes Take 1 tablet (10 mg) by mouth once daily asdirected. Shania Chauhan CNP 04/18/2025 Morning Active Dupixent Syringe 300 mg/2 mL syringe injection [id number] No Inject 300 mg under the skin every 14 (fourteen) days. Historical ProviderMD 04/07/2025 Active fluticasone (Flonase) 50 mcg/actuation nasal spray [id number] Yes Administer 1 spray into each nostril two times daily. Shake gently. Before first use, prime pump. After use, clean tip and replace cap.Historical ProviderMD 04/18/2025 Bedtime Active fluticasone propion-salmeteroL (Advair Diskus) 500-50 mcg/dose diskus inhaler [id number] Yes Inhale 1puff two times daily. Historical ProviderMD 04/18/2025 Bedtime Active metoprolol succinate XL (Toprol-XL) 50 mg 24 hr tablet [id number] Yes Take 1 tablet (50 mg) by mouth once daily as directed. Do not crush or chew. Hay William MD 04/18/2025 Morning Active sacubitril-valsartan (Entresto) 97-103 mg tablet [id number] Yes Take 1 tablet by mouth two times daily. Hay William MD 04/18/2025 Bedtime Active spironolactone (Aldactone) 25 mg tablet [id number] Yes Take 1 tablet (25 mg) by [...] amiodarone, 0.5 mg/min, Last Rate: 0.5 mg/min (04/27/25699) DOBUTamine, 2.5-15 mcg/kg/min, Last Rate: 2 mcg/kg/min (04/27/25699) furosemide, 40 mg/hr, Last Rate: 40 mg/hr (04/27/25699) [Held by provider] milrinone, 0.25 mcg/kg/min, Last Rate: Stopped (04/26/25 111) norEPINEPHrine, 0.01-2 mcg/kg/min, Last Rate: 0.26 mcg/kg/min (04/27/25 07) PRN Meds: PRN medications: acetaminophen, albuterol, glucose [...] VIEW - Impression - Tip of the Witt-Shannan catheter appears to be in the right [...] Abrilll continue to follow along with you. Hakan Dugan, MS3 [facility]ph[facility] As the teaching physician, I have [...] Faculty, Division of Nephrology, Department of Medicine, [facility] [employer]. * Mode Franco MD [...] elevated wedge pressure and RV pressures. A Witt-Shannan catheter was placed for further monitoring andthe [...] & Lasix gtt (40 mg/hr). SG Readings: Witt malfunction, tentatively planning swanremoval. 880 ml UOP [...] Value Ventricular Rate 120 Atrial Rate 120 MI Interval 198 QRS DURATION 102 QT Interval 294 QTC CALCULATION(BAZETT) 415 P Milton 64 R-Milton 38 T Wave Milton 116 Impression Sinus tachycardia Low voltage QRS [...] Bubble Study Result Date: 04/23/2025 1 1 [facility] Heart Station [address] [place] [address] [phone] (fax) Echocardiogram-[facility] Name: KRISTY DOHERTY Study Date: 04/23/2025 07:26 AM B/P: 90 mmHg/74 mmHg HR: 111 bpm Date of : 1955 [facility] [...] minimal pericardial effusion. Procedure Staff Reading Group: [facility] Referring Physician: RUDY KING Gas Inspector: June Brumfield RDCS, RVT, RN, BSN Ordering Physician: FANI DENNEY Wall Motion Scores -1 - hyperkinesia, 0 - not evaluated, 1 - normal, 2 - hypokinesia, 3 - akinesia, 4 - dyskinesia Transthoracic echo (TTE) limited Result Date: 04/20/2025 1 1 [facility] Heart Station [address] [place] [address] [phone] (fax) Echocardiogram-[facility] Name: KRISTY DOHERTY Study Date: 04/20/2025 01:28 PM B/P: 83 mmHg/58 mmHg HR: 96 bpm Date of : 1955 [facility]: [facility] [...] No pericardial effusion. Procedure Staff Reading Group: [facility] Referring Physician:RUDY KING Gas Inspector: June Brumfield RDCS, RVT, RN, BSN Ordering Physician: VENU SAMANEIGO Wall Motion Scores -1 - hyperkinesia, 0 - not evaluated, 1 - normal, 2 - hypokinesia, 3 - akinesia, 4 - dyskinesia Transthoracic echo (TTE) limited Result Date: 04/19/2025 1 1 [facility] Heart Station [address] [facility] [address] [phone] (fax) Echocardiogram-[facility] Name: KRISTY DOHERTY Study Date: 04/19/2025 02:13 PM B/P: / HR: Date of : 1955 Location: [facility] Height: 68 in. Age: 69 year(s) Patient Room: 3183 Weight: 182 lb. Gender: Male Patient Status: InPt BSA: 1.96 m2 Indication: pericardialeffusion, h/o 35mm Watchman FLX Examination: Limited Echo Image Quality: Fair Findings Pericardium: Moderate pericardial effusion baseline. Post pericardiocentesis there is minimal pericardial effusion. Procedure Staff Reading Group: [facility] Referring Physician: RUDY KING Gas Inspector: SAMI Starr, RDCS Ordering Physician: VENU SAMANIEGO Complete Echo (TTE) w/wo Imaging Agent, Strain, 3D, Bubble Study Result Date: 04/19/2025 1 1 [facility] Heart Station [address] [place] [address] [phone] (fax) Echocardiogram-[facility] Name: KRISTY DOHERTY Study Date: 04/19/2025 12:46 PM B/P: 97 mmHg/71 mmHg HR: Date of : 1955 [facility] early tamponade physiology. Procedure Staff Reading Group: [facility] Gas Inspector: Bryanna Cazares RDCS Ordering Physician: HAKAN Moodytronically signed by MD Mitesh Vernon on 04/19/2025 at 01:44 PM Limited Transthoracic Echo (TTE) w/wo Contrast, Color Flow, Imaging Agent, Strain, 3D, Bubble Study Result Date: 02/07/2025 1 1 [facility] Heart Station [address] [place] [address] [phone] (fax) Echocardiogram-[facility] Name: KRISTY DOHERTY Study Date: 02/07/2025 08:02 AM B/P: 118 mmHg/85 mmHg HR: 63 bpm Date of : 1955 Location: [facility] Height: 68 in. Age: 69 year(s) Patient Room: [facility] Weight: 186 lb. Gender: Male Patient Status: [...] No pericardial effusion. Procedure Staff Reading Group: [facility] Referring Physician: RUDY KING Gas Inspector: SAMI Starr, RDCS Ordering Physician: CHUCK FUNEZ Transesophageal echo (MASON) Result Date: 12/01/2024 1 [facility] Heart Station [address] [place] [address] [phone] (fax) Transesophageal Echocardiogram-[facility] Name: KRISTY [...] Location: A MASON was performed in the [employer] [facility] without complications Anesthesia Pharyngeal anesthesia with viscous [...] examination with the fellow Procedure Staff ReadingGroup: [facility] Referring Physician: RUDY KING Gas Inspector: DORIAN Walker Ordering Physician: Hay William MD [...] Performed: Right heart catheterization. Placement of a PAPER SORTER AND COUNTER Witt-Shannan catheter for hemodynamic monitoring. Access into the right internal jugular vein under ultrasound guidance. Methods: Procedure was explained to the patient with risks and benefits; he signed informed consent. he was brought to the mushroom laborer in a fasting state. The right neck area was prepped and draped in usual fashion. Micropuncture technique was used for access under ultrasound guidance into the right internal jugular vein. A 6-Cambodian x 11 cm sheath was placed. A 6-Cambodian Carrasquillo catheter was used for right heart catheterization and measurement of pressures and calculation of cardiac output using the estimated [place] method. Carrasquillo catheter was removed. Over a wire to the access sheath was upsized to a 9 Cambodian introducer sheath. A PAPER SORTER AND COUNTER Witt-Shannan catheter was advanced with the aid of a V18 wire and the distal end of the catheter was advanced to the distal segment of the right pulmonary artery. The Witt-Shannan catheter was secured in place. he tolerated [...] with biventricular failure. Successful placement of a PAPER SORTER AND COUNTER Witt-Shannan catheter to guide management of heart failure. [...] on telemetry, on amiodarone gtt Paroxysmal A-fib [id number] 3 (heart failure, hypertension, age 65-74) s/p [...] hrs while on Lasix drip. Nephrology considering JEWEL [employer] if kidneyfunction continues to decline. Aggressive electrolyte [...] call with any questions. Mode Franco, PGY2 [facility] Cosigned by Bebo Dominguez MD at 04/27/2025 [...] the left femoral vein andthe right IJ Witt-Shannan catheter was removed and manual pressure applied to obtain hemostasis He remains on dobutamine inotrope support and Levophed vasopressor support He can continues to have oliguric LINDA Nephrology may start HD soon Difficult case with acute on chronic HFrEF, cardiogenic shock, acute cor pulmonale, paroxysmal afib, recent pericarditis requiring pericardial drain * aKrsten Gage MD - 04/27/2025 7:44 AM EDT Images from the original note were not included. Medical ICU Progress Note Patient - Kristy Doherty Age - 69 y.o. - 1955 Date of Admission - 04/19/2025 10:46 AM HPI/Hospital Course Subjective Kristy Doherty is an 69 y.o. male who came from [place] with chest pain with radiation to neck andback. Past medical history of heart failure with reduced ejection fraction, hypertension, coronary artery disease, cardiomyopathy nonischemic (AICD placed), hyperlipidemia, atrial fibrillation statuspost Watchman , asthma. Patient presents from [place] with chest pain radiating to the neck [...] denies chills, palpitations, leg swelling, wheezing abdominal pain, nausea, vomiting, diarrhea, lightheadedness, dizziness, headache, visual changes. [...] elevated wedge pressure and RV pressures. A Witt-Shannan catheter was placed for further monitoring and the patient was transferred to the medical ICU. SUBJECTIVE Patient seen and examined at the bedside. He denies any chest pain, shortness of breath, or cough. He does endorse new right neck swelling where Witt cath is placed. Continuing pressor support and [...] Performed: Right heart catheterization. Placement of a PAPER SORTER AND COUNTER Witt-Shannan catheter for hemodynamic monitoring. Access into the right internal jugular vein under ultrasound guidance. Methods: Procedure was explained to the patient with risks and benefits; he signed informed consent. he was brought to the mushroom laborer in a fasting state. The right neck area was prepped and draped in usual fashion. Micropuncture technique was used for access under ultrasound guidance into the right internal jugular vein. A 6-Cambodian x 11 cm sheath was placed. A 6-Cambodian Carrasuqillo catheter was used for right heart catheterization and measurement of pressures and calculation of cardiac output using the estimated [place] method. Carrasquillo catheter was removed. Over a wire to the access sheath was upsized to a 9 Cambodian introducer sheath. A PAPER SORTER AND COUNTER Witt-Shannan catheter was advanced with the aid of a V18 wire and the distal end of the catheter was advanced to the distal segment of the right pulmonary artery. The Witt-Shannan catheter was secured in place. he tolerated [...] with biventricular failure. Successful placement of a PAPER SORTER AND COUNTER Witt-Shannan catheter to guide management of heart failure. [...] amiodarone, 0.5 mg/min, Last Rate: 0.5 mg/min (04/27/25699) DOBUTamine, 2.5-15 mcg/kg/min, Last Rate: 2 mcg/kg/min [...] on 04/20 due to resolution of effusion Witt Shannan placed on 04/24, has showed improvement in CO and CI PA 38/24 PCWP 21 CO 4.2, CI 3.5 Melanie 0.72 Patient is currently on Dobutamine and levophed Added on hydrocortisone Previous Lasix challenges have not produced adequate urine, have started Lasix drip per nephrology Will restart GDMT as appropriate once stable Appreciate cardiology input Has swelling on side of Witt catheter, discussing with cardiology on pulling it [...] support: Dobutamine, levophed Lines (location & placement): Witt Shannan DVT prophylaxis: Heparin subq Diet: Regular Code Status: FULL This progress note was completed using a voice paper cutting machine operator system. Every effort was made to ensure accuracy. However, inadvertent computerized paper cutting machine operator errors may be present. Karsten Gage MD [...] with nephrology and cardiology on the floor. Witt is dysfunctional, and noted to have hematoma at insertion site, we will remove the Witt catheter. Insert hemodialysis catheter on left IJ. [...] s/p Watchman procedure, who was transferred from [place] with initial chief complaint of chest and [...] pain and shortness of breath. Interval History: 04/26/25 The patient was seen and evaluated in [...] Last Dose Status albuterol 90 mcg/actuation inhaler [id number] Inhale 1 puff 2 times daily. Historical ProviderMD Active allopurinol (Zyloprim) 300 mg tablet [id number] Yes Take 300 mg by mouth in the morning. German Walden MD 04/18/2025 Morning Active amoxicillin (Amoxil) 500 mg tablet [id number] No Take 4 tablets (2,000 mg) by mouth 1 (one) time if needed (30-60 minute prior to dental procedures) for up to 20 doses. Patient not taking: Reported on 04/19/2025 Hay William MD Unknown Active aspirin 81 mg chewable tablet [id number] Yes Chew 1 tablet (81 mg) with breakfast. Hay William MD 04/18/2025 Morning Active atorvastatin (Lipitor) 40 mg tablet [id number] Yes Take 1 tablet (40 mg) by mouth at bedtime. Hay William MD 04/18/2025 Bedtime Active clopidogrel (Plavix) 75 mg tablet [id number] Yes Take 1 tablet (75 mg) by mouth in the morning. Hay William MD 04/18/2025 Morning Active dapagliflozin propanediol (Farxiga) 10 mg [id number] Yes Take 1 tablet (10 mg) by mouth once daily asdirected. Shania Chauhan CNP 04/18/2025 Morning Active Dupixent Syringe 300 mg/2 mL syringe injection [id number] No Inject 300 mg under the skin every 14 (fourteen) days. German ProviderMD 04/07/2025 Active fluticasone (Flonase) 50 mcg/actuation nasal spray [id number] Yes Administer 1 spray into each nostril two times daily. Shake gently. Before first use, prime pump. After use, clean tip and replace cap.German ProviderMD 04/18/2025 Bedtime Active fluticasone propion-salmeteroL (Advair Diskus) 500-50 mcg/dose diskus inhaler [id number] Yes Inhale 1puff two times daily. German ProviderMD 04/18/2025 Bedtime Active metoprolol succinate XL (Toprol-XL) 50 mg 24 hr tablet [id number] Yes Take 1 tablet (50 mg) by mouth once daily as directed. Do not crush or chew. Hay William MD 04/18/2025 Morning Active sacubitril-valsartan (Entresto) 97-103 mg tablet [id number] Yes Take 1 tablet by mouth two times daily. Hay William MD 04/18/2025 Bedtime Active spironolactone (Aldactone) 25 mg tablet [id number] Yes Take 1 tablet (25 mg) by [...] Date Asthma 07/29/2012 CHF (congestive heart failure) ([facility]) Coronary artery disease History of malignant neoplasm [...] VIEW - Impression - Tip of the Witt-Shannan catheter appears to be in the right [...] follow along with you. Hakan Dugan, MS3 [facility] As the teaching physician, I have personally performed or re-performed the history of present illness, physical exam and medical decision-making activities of the encounter and verified the medical student's documentation. I made pertinent changes as necessary to ensure accurate documentation. There may be additional comments below. Zhen Feldman MD Faculty, Division of Nephrology, Department of Medicine, [facility] [employer]. * Marisol Saucedo, RD - 04/26/2025 1:05 PM EDT .Adult Nutrition [...] 0 Lab Value Date/Time BUN 40 (H) 04/26/2025 0305 CREATININE 2.83 (H) 04/26/2025 0305 NA 129 (L) 04/26/2025 0305 K 4.2 04/26/2025 0305 PHOS 2.6 04/26/2025 0305 MG 1.8 (L) 04/26/2025 0305 HGB 10.2 (L) 04/26/2025 0305 WBC 6.84 04/26/2025 0305 CHOL 98 (L) 04/24/2025 0407 HDL 29 [...] 20% Decrease in UOP past 24 hr Witt Shannan (04/24/25) Lasix gtt Vasopressor support, dobutamine [...] fruit cup. Thank you! 04/26/25 0847 04/24/25 1717 Regular Diet Heart Healthy/HTN, CABG,Stroke, [...] of Nutrition and Dietetics (AND) and the [place] Society of Enteral and Parenteral Nutrition (ASPEN). [...] To reach the Clinical Dietitian, please utilize [employer] chat Wednesday-Wednesday from 8AM-4PM or call extension [phone]. For weekends (Wednesday-Wednesday) and holidays, the Clinical Dietitian can be reached via pager ([phone]) from 9AM-3PM. The Clinical Nutrition Department is unable to respond to [employer] chat messages on Sundays and s. [1] Past Medical History: Diagnosis Date Asthma 07/29/2012 CHF (congestive heart failure) (CMS/HCC) Coronary artery disease History of malignant neoplasm of prostate 07/03/2022 Hypertension 07/03/2022 [2] No Known Allergies * Brendne Vivar MD - 04/26/2025 12:20 PM EDT [...] elevated wedge pressure and RV pressures. A Witt-Shannan catheter was placed for further monitoring andthe [...] Value Ventricular Rate 120 Atrial Rate 120 MI Interval 198 QRS DURATION 102 QT Interval 294 QTC CALCULATION(BAZETT) 415 P Milton 64 R-Milton 38 T Wave Milton 116 Impression Sinus tachycardia Low voltage QRS [...] Bubble Study Result Date: 04/23/2025 1 1 [facility] Heart Station [address] [place] [address] [phone] (fax) Echocardiogram-[facility] Name: KRISTY DOHERTY Study Date: 04/23/2025 07:26 AM B/P: 90 mmHg/74 mmHg HR: 111 bpm Date of : 1955 [facility]: [facility] [...] minimal pericardial effusion. Procedure Staff Reading Group: [facility] Referring Physician: RUDY KING Gas Inspector: June Brumfield, DEAN, RVT, RN, BSN Ordering Physician: FANI DENNEY Wall Motion Scores -1 - hyperkinesia, 0 - not evaluated, 1 - normal, 2 - hypokinesia, 3 - akinesia, 4 - dyskinesia Transthoracic echo (TTE) limited Result Date: 04/20/2025 1 1 [facility] Heart Station [address] [place] [address] [phone] (fax) Echocardiogram-[facility] Name: KRISTY DOHERTY Study Date: 04/20/2025 01:28 PM B/P: 83 mmHg/58 mmHg HR: 96 bpm Date of : 1955 Location: [facility] [...] No pericardial effusion. Procedure Staff Reading Group: [facility] Referring Physician:RUDY KING Gas Inspector: June Brumfield RDCS, RVT, RN, BSN Ordering Physician: VENU SAMANIEGO Wall Motion Scores -1 - hyperkinesia, 0 - not evaluated, 1 - normal, 2 - hypokinesia, 3 - akinesia, 4 - dyskinesia Transthoracic echo (TTE) limited Result Date: 04/19/2025 1 1 [facility] Heart Station [address] [place] [address] [phone] (fax) Echocardiogram-[facility] Name: KRISTY DOHERTY Study Date: 04/19/2025 02:13 PM B/P: / HR: Date of : 1955 Location: [facility] Height: 68 in. Age: 69 year(s) Patient Room: [facility] Weight: 182 lb. Gender: Male Patient Status: InPt BSA: 1.96 m2 Indication: pericardialeffusion, h/o 35mm Watchman FLX Examination: Limited Echo Image Quality: Fair Findings Pericardium: Moderate pericardial effusion baseline. Post pericardiocentesis there is minimal pericardial effusion. Procedure Staff Reading Group: [facility] Referring Physician: RUDY KING Gas Inspector: SAMI Starr, RDCS Ordering Physician: VENU SAMANIEGO Complete Echo (TTE) w/wo Imaging Agent, Strain, 3D, Bubble Study Result Date: 04/19/2025 1 1 [facility] Heart Station [address] [place] [address] [phone] (fax) Echocardiogram-[facility] Name: KRISTY DOHERTY Study Date: 04/19/2025 12:46 PM B/P: 97 mmHg/71 mmHg HR: Date of : 1955 [facility] early tamponade physiology. Procedure Staff Reading Group: [facility] Gas Inspector: Bryanna Cazares RDCS Ordering Physician: HAKAN Canchola signed by MD Mitesh Vernon on 04/19/2025 at 01:44 PM Limited Transthoracic Echo (TTE) w/wo Contrast, Color Flow, Imaging Agent, Strain, 3D, Bubble Study Result Date: 02/07/2025 1 1 [facility] Heart Station [address] [place] [address] [phone] (fax) Echocardiogram-[facility] Name: KRISTY DOHERTY Study Date: 02/07/2025 08:02 AM B/P: 118 mmHg/85 mmHg HR: 63 bpm Date of : 1955 Location: [facility] [...] No pericardial effusion. Procedure Staff Reading Group: [facility] Referring Physician: RUDY KING Gas Inspector: SAMI Starr, RDCS Ordering Physician: CHUCK FUNEZ Transesophageal echo (MASON) Result Date: 12/01/2024 1 [facility] Heart Station [address] [place] [address] [phone] (fax) Transesophageal Echocardiogram-[facility] Name: KRISTY [...] Location: A MASON was performed in the [employer] without complications Anesthesia Pharyngeal anesthesia with viscous [...] examination with the fellow Procedure Staff ReadingGroup: [facility] Referring Physician: RUDY KING Gas Inspector: DORIAN Walker Ordering Physician: Hay William MD [...] Performed: Right heart catheterization. Placement of a PAPER SORTER AND COUNTER Witt-Shannan catheter for hemodynamic monitoring. Access into the right internal jugular vein under ultrasound guidance. Methods: Procedure was explained to the patient with risks and benefits; he signed informed consent. he was brought to the mushroom laborer in a fasting state. The right neck area was prepped and draped in usual fashion. Micropuncture technique was used for access under ultrasound guidance into the right internal jugular vein. A 6-Cambodian x 11 cm sheath was placed. A 6-Cambodian Carrasquillo catheter was used for right heart catheterization and measurement of pressures and calculation of cardiac output using the estimated [place] method. Carrasquillo catheter was removed. Over a wire to the access sheath was upsized to a 9 Cambodian introducer sheath. A PAPER SORTER AND COUNTER Witt-Shannan catheter was advanced with the aid of a V18 wire and the distal end of the catheter was advanced to the distal segment of the right pulmonary artery. The Witt-Shannan catheter was secured in place. he tolerated [...] with biventricular failure. Successful placement of a PAPER SORTER AND COUNTER Witt-Shannan catheter to guide management of heart failure. [...] runs of NSVT on telemetry Paroxysmal A-fib [id number] 3 (heart failure, hypertension, age 65-74) s/p [...] call with any questions. Brenden Vivar PGY-4 Aeronautical Engineering Teacher [facility] Cosigned by Bebo Dominguez MD at 04/27/2025 [...] Doherty Age [facility] 69 [facility] 1955 [id number] Date of Admission - 04/19/2025 10:46 AM HPI/Hospital Course Subjective Kristy Doherty is an 69 y.o. male who came from [place] with chest pain with radiation to neck andback. Past medical history of heart failure with reduced ejection fraction, hypertension, coronary artery disease, cardiomyopathy nonischemic (AICD placed), hyperlipidemia, atrial fibrillation statuspost [facility] , asthma. Patient presents from [place] with chest pain radiating to the neck [...] elevated wedge pressure and RV pressures. A Witt-Shannan catheter was placed for further monitoring and [...] XR chest 1 view Narrative: History: Assessing Witt-Shannan catheter Exam/Technique: Portable upright AP chest Comparison: Chest CTA from 04/23/2025. Findings: The tip of the right jugular Witt-Shannan catheter appears to overlap when appropriate EKG leads, apparently in the proximal portion of the right main pulmonary artery. No interval change is demonstrated with no new acute pulmonary or pleural abnormalities displayed on this single. Mild cardiomegaly appears unchanged. Cardiac electrical device unchanged. Impression: Tip of the Witt-Shannan catheter appears to be in the right [...] on 04/20 due to resolution of effusion Witt Shannan placed on 04/24, has showed improvement [...] support: Dobutamine, levophed Lines (location & placement): Witt Shannan DVT prophylaxis: Heparin subq Diet: Regular Code Status: FULL This progress note was completed using a voice paper cutting machine operator system. Every effort was made to ensure accuracy. However, inadvertent computerized paper cutting machine operator errors may be present. Karsten Gage MD [...] failure. Discussed with cardiology on the floor. Witt in place, with elevated wedge pressure. Cardiorenal [...] an 69 y.o. male who came from [place] with chest pain with radiation to neck andback. Past medical history of heart failure with reduced ejection fraction, hypertension, coronary artery disease, cardiomyopathy nonischemic (AICD placed), hyperlipidemia, atrial fibrillation statuspost Watchman , asthma. Patient presents from [place] with chest pain radiating to the neck [...] elevated wedge pressure and RV pressures. A Witt-Shannan catheter was placed for further monitoring and the patient was transferred to the medical ICU. SUBJECTIVE Patient seen and examined at the bedside. Patient denies any chest pain or difficulty breathing. Increasing pressure support. Witt Shannan numbers improving. OBJECTIVE Vitals height is [...] Performed: Right heart catheterization. Placement of a PAPER SORTER AND COUNTER Witt-Shannan catheter for hemodynamic monitoring. Access into the right internal jugular vein under ultrasound guidance. Methods: Procedure was explained to the patient with risks and benefits; he signed informed consent. he was brought to the mushroom laborer in a fasting state. The right neck area was prepped and draped in usual fashion. Micropuncture technique was used for access under ultrasound guidance into the right internal jugular vein. A 6-Cambodian x 11 cm sheath was placed. A 6-Cambodian Carrasquillo catheter was used for right heart catheterization and measurement of pressures and calculation of cardiac output using the estimated [place] method. Carrasquillo catheter was removed. Over a wire to the access sheath was upsized to a 9 Cambodian introducer sheath. A PAPER SORTER AND COUNTER Witt-Shannan catheter was advanced with the aid of a V18 wire and the distal end of the catheter was advanced to the distal segment of the right pulmonary artery. The Witt-Shannan catheter was secured in place. he tolerated [...] with biventricular failure. Successful placement of a PAPER SORTER AND COUNTER Witt-Shannan catheter to guide management of heart failure. [...] on 04/20 due to resolution of effusion Witt Shannan placed on 04/24, has showed improvement [...] support: Milrinone, levophed Lines (location & placement): Witt Shannan DVT prophylaxis: Heparin subq Diet: Regular Code Status: FULL This progress note was completed using a voice paper cutting machine operator system. Every effort was made to ensure accuracy. However, inadvertent computerized paper cutting machine operator errors may be present. Karsten Gage MD [...] elevated wedge pressure and RV pressures. A Witt-Shannan catheter was placed for further monitoring andthe [...] -- -- 93 18 96 % -- 04/24/252199 -- -- -- 89 18 95 % -- 04/24/252106 -- -- -- 80 (!) 27 97 % -- 04/24/25 2100 89/64 -- -- 84 26 98 % -- 04/24/25 2000 82/66 36.2 ??C (97.2 ??F) Temporal 91 (!) 27 96 % -- 04/24/25 1900 89/70 -- -- 84 22 96 % -- 04/24/25 1800 88/69 -- -- 85 22 99 % -- 04/24/25 170 -- -- -- -- -- 98 % [...] 88 19 93 % -- 04/24/25 0928 -- -- 106 -- -- -- 04/24/25 [...] Value Ventricular Rate 120 Atrial Rate 120 MI Interval 198 QRS DURATION 102 QT Interval 294 QTC CALCULATION(BAZETT) 415 P Milton 64 R-Milton 38 T Wave Milton 116 Impression Sinus tachycardia Low voltage QRS [...] Bubble Study Result Date: 04/23/2025 1 1 [facility] Heart Station [address] [place] [address] [phone] (fax) Echocardiogram-[facility] Name: KRISTY DOHERTY Study Date: 04/23/2025 07:26 AM B/P: 90 mmHg/74 mmHg HR: 111 bpm Date of : 1955 [facility] [...] minimal pericardial effusion. Procedure Staff Reading Group: [facility] Referring Physician: RUDY KING Gas Inspector: June Brumfield RDCS, RVT, RN, BSN Ordering Physician: FANI DENNEY Wall Motion Scores -1 - hyperkinesia, 0 - not evaluated, 1 - normal, 2 - hypokinesia, 3 - akinesia, 4 - dyskinesia Transthoracic echo (TTE) limited Result Date: 04/20/2025 1 1 [facility] Heart Station [address] [place] [address] [phone] (fax) Echocardiogram-[facility] Name: KRISTY DOHERTY Study Date: 04/20/2025 01:28 PM B/P: 83 mmHg/58 mmHg HR: 96 bpm Date of : 1955 Location: [facility] [...] No pericardial effusion. Procedure Staff Reading Group: [facility] Referring Physician:RUDY KING Gas Inspector: June Brumfield RDCS, RVT, RN, BSN Ordering Physician: VENU SAMANIEGO Wall Motion Scores -1 - hyperkinesia, 0 - not evaluated, 1 - normal, 2 - hypokinesia, 3 - akinesia, 4 - dyskinesia Transthoracic echo (TTE) limited Result Date: 04/19/2025 1 1 [facility] Heart Station [address] [place] [address] (fax) Echocardiogram-[facility] Name: KRISTY DOHERTY Study Date: 04/19/2025 02:13 PM B/P: / HR: Date of : 1955 Location: [facility] Height: 68 in. Age: 69 year(s) Patient Room: [facility] Weight: 182 lb. Gender: Male Patient Status: InPt BSA: 1.96 m2 Indication: pericardialeffusion, h/o 35mm Watchman FLX Examination: Limited Echo Image Quality: Fair Findings Pericardium: Moderate pericardial effusion baseline. Post pericardiocentesis there is minimal pericardial effusion. Procedure Staff Reading Group: [facility] Referring Physician: RUDY KING Gas Inspector: SAMI Starr, RDROSALIO Ordering Physician: VENU SAMANIEGO Complete Echo (TTE) w/wo Imaging Agent, Strain, 3D, Bubble Study Result Date: 04/19/2025 1 1 [facility] Heart Station [address] [facility] [place] [address] [phone] (fax) Echocardiogram-[facility] Name: KRISTY DOHERTY Study Date: 04/19/2025 12:46 PM B/P: 97 mmHg/71 mmHg HR: Date of : 1955 [facility] early tamponade physiology. Procedure Staff Reading Group: [facility] Gas Inspector: Bryanna Cazares RDCS Ordering Physician: HAKAN Canchola signed by MD Mitesh Vernon on 04/19/2025 at 01:44 PM Limited Transthoracic Echo (TTE) w/wo Contrast, Color Flow, Imaging Agent, Strain, 3D, Bubble Study Result Date: 02/07/2025 1 1 [facility] Heart Station [address] [place] [address] [phone] (fax) Echocardiogram-[facility] Name: KRISTY DOHERTY Study Date: 02/07/2025 08:02 AM B/P: 118 mmHg/85 mmHg HR: 63 bpm Date of : 1955 Location: [facility] [...] No pericardial effusion. Procedure Staff Reading Group: [facility] Referring Physician: RUDY KING Gas Inspector: SAMI Starr, RDCS Ordering Physician: CHUCK FUNEZ Transesophageal echo (MASON) Result Date: 12/01/2024 1 [facility] Heart Station [address] [place] [address] [phone] (fax) Transesophageal Echocardiogram-[facility] Name: KRISTY [...] Location: A MASON was performed in the [employer] [facility] without complications Anesthesia Pharyngeal anesthesia with viscous [...] examination with the fellow Procedure Staff ReadingGroup: [facility] Referring Physician: RUDY KING Gas Inspector: DORIAN Walker Ordering Physician: Hay William MD [...] Performed: Right heart catheterization. Placement of a PAPER SORTER AND COUNTER Witt-Shannan catheter for hemodynamic monitoring. Access into the right internal jugular vein under ultrasound guidance. Methods: Procedure was explained to the patient with risks and benefits; he signed informed consent. he was brought to the mushroom laborer in a fasting state. The right neck area was prepped and draped in usual fashion. Micropuncture technique was used for access under ultrasound guidance into the right internal jugular vein. A 6-Cambodian x 11 cm sheath was placed. A 6-Cambodian Carrasquillo catheter was used for right heart catheterization and measurement of pressures and calculation of cardiac output using the estimated [place] method. Carrasquillo catheter was removed. Over a wire to the access sheath was upsized to a 9 Cambodian introducer sheath. A PAPER SORTER AND COUNTER Witt-Shannan catheter was advanced with the aid of a V18 wire and the distal end of the catheter was advanced to the distal segment of the right pulmonary artery. The Witt-Shannan catheter was secured in place. he tolerated [...] with biventricular failure. Successful placement of a PAPER SORTER AND COUNTER Witt-Shannan catheter to guide management of heart failure. [...] runs of NSVT on telemetry Paroxysmal A-fib [id number] 3 (heart failure, hypertension, age 65-74) s/p Watchman procedure on 02/06/2025 (due to prior bleeding with eliquis) Nonobstructive coronary artery disease Hyperlipidemia (unspecified) on lipitor 40 Plan: Swanz-shannan measurements noted: PA: 32/17 (22),CVP: 12,CO: 5.6 Will start levophed and up [...] Alba Mena MD PGY-3 Internal Medicine Resident [facility] Cosigned by Bebo Dominguez MD at 04/25/2025 [...] than 1 Patient transferred to MICU and Witt-Shannan in place and started on milrinone Unfortunately [...] Assessment of hemodynamics at the bedside with Witt-shannan catheter * Benedict Pascual MD - 04/24/2025 4:09 PM EDT Images from the original note were not included. Hospital Medicine Daily Progress Note - 04/24/2025 4:09 PM; Room: [address] [place] [address] Admission: 04/19/2025 10:46 AM; Length of stay: 5 days THE HOSPITALIST TEAM PREFERS TO USE [employer] CHAT FOR NON-URGENT COMMUNICATION 7AM- 7PM. IF I DO NOT RESPOND WITHIN 20 MINUTES OR URGENT MATTERS, PLEASE CALL THROUGH THE PCAT INSTRUCTOR. FROM 7PM-7AM, PLEASE PAGE [phone](COVR). Code Status: Full Code Barriers to Discharge: [...] showed early tamponade. Patient was taken to mushroom laborer for Pericardiocentesis. Right heart cath was not [...] due to hypotension. Coronary artery disease involving [place] coronary artery of [place] heart with angina pectoris - Nonobstructive. - [...] LDL 69 04/24/2025 No results found for: [id number] , IRON , TIBC , C3 , [...] Performed: Right heart catheterization. Placement of a PAPER SORTER AND COUNTER Witt-Shannan catheter for hemodynamic monitoring. Access into the right internal jugular vein under ultrasound guidance. Methods: Procedure was explained to the patient with risks and benefits; he signed informed consent. he was brought to the mushroom laborer in a fasting state. The right neck area was prepped and draped in usual fashion. Micropuncture technique was used for access under ultrasound guidance into the right internal jugular vein. A 6-Cambodian x 11 cm sheath was placed. A 6-Cambodian Carrasquillo catheter was used for right heart catheterization and measurement of pressures and calculation of cardiac output using the estimated [place] method. Carrasquillo catheter was removed. Over a wire to the access sheath was upsized to a 9 Cambodian introducer sheath. A PAPER SORTER AND COUNTER Witt-Shannan catheter was advanced with the aid of a V18 wire and the distal end of the catheter was advanced to the distal segment of the right pulmonary artery. The Witt-Shannan catheter was secured in place. he tolerated [...] with biventricular failure. Successful placement of a PAPER SORTER AND COUNTER Witt-Shannan catheter to guide management of heart failure. Plan: Patient will be started on intravenous inotropic therapy. Further recommendations per inpatient Cardiology service. Hay William MD Discharge Planning Expected Discharge Disposition: Home or Self Care (01) (pending clinical course) Signed Benedict Pascual MD [facility] Medicine 04/24/2025 4:09 PM * Felicita Mooney [...] Temporal 105 21 95 % -- 04/23/25 195 98/73 36.8 ??C (98.2 ??F) Temporal (!) [...] Value Ventricular Rate 120 Atrial Rate 120 MI Interval 198 QRS DURATION 102 QT Interval 294 QTC CALCULATION(BAZETT) 415 P Milton 64 R-Milton 38 T Wave Milton 116 Impression Sinus tachycardia Low voltage QRS [...] Bubble Study Result Date: 04/23/2025 1 1 [facility] Heart Station [address] [place] [address] [phone] (fax) Echocardiogram-[facility] Name: KRISTY DOHERTY Study Date: 04/23/2025 07:26 AM B/P: 90 mmHg/74 mmHg HR: 111 bpm Date of : 1955 [facility]: [facility] [...] minimal pericardial effusion. Procedure Staff Reading Group: [facility] Referring Physician: RUDY KING Gas Inspector: June Brumfield RDCS, RVT, RN, BSN Ordering Physician: FANI DENNEY Wall Motion Scores -1 - hyperkinesia, 0 - not evaluated, 1 - normal, 2 - hypokinesia, 3 - akinesia, 4 - dyskinesia Transthoracic echo (TTE) limited Result Date: 04/20/2025 1 1 [facility] Heart Station [address] [place] [address] [phone] (fax) Echocardiogram-[facility] Name: KRISTY DOHERTY Study Date: 04/20/2025 01:28 PM B/P: 83 mmHg/58 mmHg HR: 96 bpm Date of : 1955 Location: [facility] Height: 68 in. Age: 69 year(s) Patient Room: [facility], [facility]1983 Weight: 179 lb. Gender: Male Patient Status: [...] No pericardial effusion. Procedure Staff Reading Group: [facility] Referring Physician:RUDY KING Gas Inspector: June Brumfield RDCS, RVT, RN, BSN Ordering Physician: VENU SAMANIEGO Wall Motion Scores -1 - hyperkinesia, 0 - not evaluated, 1 - normal, 2 - hypokinesia, 3 - akinesia, 4 - dyskinesia Transthoracic echo (TTE) limited Result Date: 04/19/2025 1 1 [facility] Heart Station [address] [facility] [address] [phone] (fax) Echocardiogram-[facility] Name: KRISTY DOHERTY Study Date: 04/19/2025 02:13 PM B/P: / HR: Date of : 1955 Location: [facility] Height: 68 in. Age: 69 year(s) Patient Room: [facility] Weight: 182 lb. Gender: Male Patient Status: InPt BSA: 1.96 m2 Indication: pericardialeffusion, h/o 35mm Watchman FLX Examination: Limited Echo Image Quality: Fair Findings Pericardium: Moderate pericardial effusion baseline. Post pericardiocentesis there is minimal pericardial effusion. Procedure Staff Reading Group: [facility] Referring Physician: RUDY KING Gas Inspector: SAMI Starr, RDROSALIO Ordering Physician: VENU SAMANIEGO Complete Echo (TTE) w/wo Imaging Agent, Strain, 3D, Bubble Study Result Date: 04/19/2025 1 1 [facility] Heart Station [address] [place] [address] [phone] (fax) Echocardiogram-[facility] Name: KRISTY DOHERTY Study Date: 04/19/2025 12:46 PM B/P: 97 mmHg/71 mmHg HR: Date of : 1955 [facility] early tamponade physiology. Procedure Staff Reading Group: [facility] Gas Inspector: Bryanna Cazares RDCS Ordering Physician: HAKAN Canchola signed by MD Mitesh Vernon on 04/19/2025 at 01:44 PM Limited Transthoracic Echo (TTE) w/wo Contrast, Color Flow, Imaging Agent, Strain, 3D, Bubble Study Result Date: 02/07/2025 1 1 [facility] Heart Station [address] [place] [address] [phone] (fax) Echocardiogram-[facility] Name: KRISTY DOHERTY Study Date: 02/07/2025 08:02 AM B/P: 118 mmHg/85 mmHg HR: 63 bpm Date of : 1955 [facility]: [facility] [...] No pericardial effusion. Procedure Staff Reading Group: [facility] Referring Physician: RUDY KING Gas Inspector: June Andujar BS, RDCS Ordering Physician: CHUCK FUNEZ Transesophageal echo (MASON) Result Date: 12/01/2024 1 [facility] Heart Station [address] [place] [address] [phone] (fax) Transesophageal Echocardiogram-[facility] Name: KRISTY [...] Location: A MASON was performed in the [employer] without complications Anesthesia Pharyngeal anesthesia with viscous [...] examination with the fellow Procedure Staff ReadingGroup: [facility] Referring Physician: RUDY KING Gas Inspector: DORIAN Walker Ordering Physician: Hay William MD [...] Agent, Strain, 3D, Bubble Study 1 1 [facility] Heart Station [address] [place] [address] [phone] (fax) Echocardiogram-[facility] Name: KRISTY DOHERTY Study Date: 04/23/2025 07:26 AM B/P: 90 mmHg/74 mmHg HR: 111 bpm Date of : 1955 Location: [facility] [...] minimal pericardial effusion. Procedure Staff Reading Group: [facility] Referring Physician: RUDY KING Gas Inspector: June Brumfield RDCS, RVT, RN, BSN Ordering [...] and a micropuncture access technique a 6 Cambodian sheath was placed in the right femoral [...] traumatic malalignment. Approved by:Phill Orellana 4:14 AM. IAyden MD,have reviewed the image(s) and agree with [...] 49 Frequent PVC's on telemetry Paroxysmal A-fib [id number] 3 (heart failure, hypertension, age 65-74) s/p [...] Felicita Mooney MD PGY-2 Internal Medicine Resident [facility] Cosigned by Bebo Dominguez MD at 04/25/2025 [...] Progress Note - 04/23/2025 3:18 PM; Room: [address] [place] [address] Admission: 04/19/2025 10:46 AM; Length of stay: 4 days THE HOSPITALIST TEAM PREFERS TO USE [employer] CHAT FOR NON-URGENT COMMUNICATION 7AM- 7PM. IF I DO NOT RESPOND WITHIN 20 MINUTES OR URGENT MATTERS, PLEASE CALL THROUGH THE PCAT INSTRUCTOR. FROM 7PM-7AM, PLEASE PAGE [phone](COVR). Code Status: Full Code Barriers to Discharge: [...] showed early tamponade. Patient was taken to mushroom laborer for Pericardiocentesis. Right heart cath was not [...] due to hypotension. Coronary artery disease involving [place] coronary artery of [place] heart with angina pectoris - Nonobstructive. - [...] Lab Units 04/23/25 0502 04/20/25 0515 04/19/25 1444 CRP mg/L 39.4* -- 145.7* WBC [...] CORTISOL 11.2 04/20/2025 No results found for: [id number] , IRON , TIBC , C3 , C4 , COLLIN , CANCA , ASO , PSA , CEA , CA125 , CA199 , AFP , CA153 Imaging Limited Echo (TTE) w/wo Limited Doppler, Color Flow, Imaging Agent, Strain, 3D, Bubble Study 1 1 [facility] Heart Station [address] [place] [address] [phone] (fax) Echocardiogram-[facility] Name: KRISTY DOHERTY Study Date: 04/23/2025 07:26 AM B/P: 90 mmHg/74 mmHg HR: 111 bpm Date of : 1955 [facility]: [facility] [...] minimal pericardial effusion. Procedure Staff Reading Group: [facility] Referring Physician: RUDY KING Gas Inspector: June Brumfield, DEAN, RVT, RN, BSN Ordering [...] and a micropuncture access technique a 6 Cambodian sheath was placed in the right femoral [...] acute fracture or traumatic malalignment. Approved by:Phill Morgann1 4:14 AM. Ayden Ramirez MD,have reviewed the [...] (pending clinical course) Signed Benedict Pascual MD [facility] Medicine 04/23/2025 3:18 PM * Elliott Nettles WAREHOUSE PRODUCTION WORKER - 04/23/2025 8:55 AM EDT Images from [...] ALLERGIES: Allergies[4] Objective 12-24 hour telemetry reviewed: /, 3 beat VTACH 02:33, 77-138. CURRENT MEDS: [...] kg (177 lb 3.2 oz) 04/23/25 0310 109 -- -- (!) 121 -- -- -- 04/23/25 0300 109 -- -- (!) 128 -- -- -- [...] Value Ventricular Rate 120 Atrial Rate 120 MI Interval 198 QRS DURATION 102 QT Interval 294 QTC CALCULATION(BAZETT) 415 P Milton 64 R-Milton 38 T Wave Milton 116 Impression Sinus tachycardia Low voltage QRS Septal infarct , age undetermined Abnormal ECG When compared with ECG of 19-APR-2025 18:24, Premature ventricular complexes are no longer Present Confirmed by Jeffy VERNON, MITESH Pruett (57) on 04/23/2025 8:14:48 AM Limited Echo (TTE) w/wo Limited Doppler, Color Flow, Imaging Agent, Strain, 3D, Bubble Study 1 1 [facility] Heart Station [address] [place] [address] [phone] (fax) Echocardiogram-[facility] Name: KRISTY DOHERTY Study Date: 04/23/2025 07:26 AM B/P: 90 mmHg/74 mmHg HR: 111 bpm Date of : 1955 [facility]: [facility] [...] minimal pericardial effusion. Procedure Staff Reading Group: [facility] Referring Physician: RUDY KING Gas Inspector: June Brumfield RDCS, RVT, RN, BSN Ordering [...] and a micropuncture access technique a 6 Cambodian sheath was placed in the right femoral [...] acute fracture or traumatic malalignment. Approved by:Phill Morgann10 4:14 AM. Ayden Ramirez MD,have reviewed the [...] and senescent changes as described. Approved by:Phill Morgann10 4:07 AM. Ayden Ramirez MD,have reviewed the [...] Spironolactone remains on hold #Paroxysmal atrial fibrillation -[id number] = 3 (HF, HTN, age 65-74) 12-24 [...] was made to ensure accuracy, some unintentional paper cutting machine operator errors may be present. [facility] [1] Past Medical History: [...] has been running in the low 90s [id number] over the past couple of weeks. Denies [...] Value Ventricular Rate 112 Atrial Rate 112 MI Interval 186 QRS DURATION 114 QT Interval 342 QTC CALCULATION(BAZETT) 466 P Milton 50 R-Milton 19 T Wave Milton 96 Impression Sinus tachycardia with occasional Premature [...] (TTE) limited Result Date: 04/20/2025 1 1 [facility] Heart Station [address] [place] [address] [phone] (fax) Echocardiogram-[facility] Name: KRISTY DOHERTY Study Date: 04/20/2025 01:28 PM B/P: 83 mmHg/58 mmHg HR: 96 bpm Date of : 1955 [facility]: [facility] [...] No pericardial effusion. Procedure Staff Reading Group: [facility] Referring Physician:RUDY KING Gas Inspector: June Brumfield RDCS, PERFECTOT, RN, BSN Ordering Physician: VENU SAMANIEGO Wall Motion Scores -1 - hyperkinesia, 0 - not evaluated, 1 - normal, 2 - hypokinesia, 3 - akinesia, 4 - dyskinesia Transthoracic echo (TTE) limited Result Date: 04/19/2025 1 1 [facility] Heart Station [address] [place] [address] [phone] (fax) Echocardiogram-[facility] Name: KRISTY DOHERTY Study Date: 04/19/2025 02:13 PM B/P: / HR: Date of : 1955 Location: [facility] Height: 68 in. Age: 69 year(s) Patient Room: 3183 Weight: 182 lb. Gender: Male Patient Status: InPt BSA: 1.96 m2 Indication: pericardialeffusion, h/o 35mm Watchman FLX Examination: Limited Echo Image Quality: Fair Findings Pericardium: Moderate pericardial effusion baseline. Post pericardiocentesis there is minimal pericardial effusion. Procedure Staff Reading Group: [facility] Referring Physician: RUDY KING Gas Inspector: SAMI Starr, [facility] Ordering Physician: VENU SAMANIEGO Complete Echo (TTE) w/wo Imaging Agent, Strain, 3D, Bubble Study Result Date: 04/19/2025 1 1 [facility] Heart Station [address] [address] [phone] (fax) Echocardiogram-[facility] Name: KRISTY DOHERTY Study Date: 04/19/2025 12:46 PM B/P: 97 mmHg/71 mmHg HR: Date of : 1955 [facility] early tamponade physiology. Procedure Staff Reading Group: [facility] Gas Inspector: Bryanna Cazares RDCS Ordering Physician: HAKAN Canchola signed by MD Mitesh Vernon on 04/19/2025 at 01:44 PM Limited Transthoracic Echo (TTE) w/wo Contrast, Color Flow, Imaging Agent, Strain, 3D, Bubble Study Result Date: 02/07/2025 1 1 [facility] Heart Station [address] [place] [address] [phone] (fax) Echocardiogram-[facility] Name: KRISTY DOHERTY Study Date: 02/07/2025 08:02 AM B/P: 118 mmHg/85 mmHg HR: 63 bpm Date of : 1955 [facility]: [facility] [...] No pericardial effusion. Procedure Staff Reading Group: [facility] Referring Physician: RUDY KING Gas Inspector: SAMI Starr, RDCS Ordering Physician: CHUCK FUNEZ Transesophageal echo (MASON) Result Date: 12/01/2024 1 [facility] Heart Station [address] [place] [address] [phone] (fax) Transesophageal Echocardiogram-[facility] Name: KRISTY [...] Location: A MASON was performed in the [employer] without complications Anesthesia Pharyngeal anesthesia with viscous [...] examination with the fellow Procedure Staff ReadingGroup: [facility] Referring Physician: RUDY KING Gas Inspector: DORIAN Walker Ordering Physician: Hay William MD [...] fibrillation -S/p Watchman procedure 02/06/2025, on DAPT -[id number] score 3 (HF, HTN, age 65-74) #Chronic [...] Syncope and collapse Coronary artery disease involving [place] coronary artery of [place] heart with angina pectoris Chronic systolic heart [...] included. Hospital Medicine Daily Progress Note - 04/22/2025 8:12 PM; Room: 3183/3183-01 Admission: 04/19/2025 10:46 AM; Length of stay: 3 days THE HOSPITALIST TEAM PREFERS TO USE [employer] CHAT FOR NON-URGENT COMMUNICATION 7AM- 7PM. IF I DO NOT RESPOND WITHIN 20 MINUTES OR URGENT MATTERS, PLEASE CALL THROUGH THE PCAT INSTRUCTOR. FROM 7PM-7AM, PLEASE PAGE [phone](COVR). Code Status: Full Code Barriers to Discharge: [...] showed early tamponade. Patient was taken to mushroom laborer for Pericardiocentesis. Right heart cath was not [...] Might resume tomorrow Coronary artery disease involving [place] coronary artery of [place] heart with angina pectoris - Nonobstructive. - [...] CORTISOL 11.2 04/20/2025 No results found for: [id number] , IRON , TIBC , C3 , C4 , COLLIN , CANCA , ASO , PSA , CEA , CA125 , CA199 , AFP , CA153 Imaging Transthoracic echo (TTE) limited 1 1 [facility] Heart Station [address] [place] [address] [phone] (fax) Echocardiogram-[facility] Name: KRISTY DOHERTY Study Date: 04/20/2025 01:28 PM B/P: 83 mmHg/58 mmHg HR: 96 bpm Date of : 1955 [facility]: [facility] [...] No pericardial effusion. Procedure Staff Reading Group: [facility] Referring Physician: RUDY KING Gas Inspector: June Brumfield RDCS, RVT, RN, BSN Ordering [...] (pending clinical course) Signed Osito Kline MD [facility] Medicine 04/22/2025 * Mode Franco MD [...] person, place, and time. Physical Examination: Vitals: 04/21/2520 BP: 106/58 Pulse: 81 Resp: 14 Temp: 36.2 ??C (97.2 ??F) SpO2: 94% Relevant Lab Results Encounter Date: 04/19/25 ECG 12 lead Result Value Ventricular Rate 112 Atrial Rate 112 MI Interval 186 QRS DURATION 114 QT Interval 342 QTC CALCULATION(BAZETT) 466 P Milton 50 R-Milton 19 T Wave Milton 96 Impression Sinus tachycardia with occasional Premature [...] (TTE) limited Result Date: 04/20/2025 1 1 [facility] Heart Station [address] [address] [phone] (fax) Echocardiogram-[facility] Name: KRISTY DOHERTY Study Date: 04/20/2025 01:28 PM B/P: 83 mmHg/58 mmHg HR: 96 bpm Date of : 1955 [facility]: [facility] [...] No pericardial effusion. Procedure Staff Reading Group: [facility] Referring Physician:RUDY KING Gas Inspector: June Brumfield RDCS, RVT, RN, BSN Ordering Physician: VENU SAMANIEGO Wall Motion Scores -1 - hyperkinesia, 0 - not evaluated, 1 - normal, 2 - hypokinesia, 3 - akinesia, 4 - dyskinesia Transthoracic echo (TTE) limited Result Date: 04/19/2025 1 1 [facility] Heart Station [address] [address] [phone] (fax) Echocardiogram-[facility] Name: KRISTY DOHERTY Study Date: 04/19/2025 02:13 PM B/P: / HR: Date of : 1955 Location: [facility] Height: 68 in. Age: 69 year(s) Patient Room: [facility] Weight: 182 lb. Gender: Male Patient Status: InPt BSA: 1.96 m2 Indication: pericardialeffusion, h/o 35mm Watchman FLX Examination: Limited Echo Image Quality: Fair Findings Pericardium: Moderate pericardial effusion baseline. Post pericardiocentesis there is minimal pericardial effusion. Procedure Staff Reading Group: [facility] Referring Physician: RUDY KING Gas Inspector: SAMI Starr, RDCS Ordering Physician: VENU SAMANIEGO Complete Echo (TTE) w/wo Imaging Agent, Strain, 3D, Bubble Study Result Date: 04/19/2025 1 1 [facility] Heart Station [address] [place] [address] [phone] (fax) Echocardiogram-[facility] Name: KRISTY DOHERTY Study Date: 04/19/2025 12:46 PM B/P: 97 mmHg/71 mmHg HR: Date of : 1955 [facility] early tamponade physiology. Procedure Staff Reading Group: [facility] Gas Inspector: Bryanna Cazares RDCS Ordering Physician: HAKAN Canchola signed by MD Mitesh Vernon on 04/19/2025 at 01:44 PM Limited Transthoracic Echo (TTE) w/wo Contrast, Color Flow, Imaging Agent, Strain, 3D, Bubble Study Result Date: 02/07/2025 1 1 [facility] Heart Station [address] [place] [address] [phone] (fax) Echocardiogram-[facility] Name: KRISTY DOHERTY Study Date: 02/07/2025 08:02 AM B/P: 118 mmHg/85 mmHg HR: 63 bpm Date of : 1955 Location: [facility] [...] No pericardial effusion. Procedure Staff Reading Group: [facility] Referring Physician: RUDY KING Gas Inspector: SAMI Starr, RDCS Ordering Physician: CHUCK FUNEZ Transesophageal echo (MASON) Result Date: 12/01/2024 1 [facility] Heart Station [address] [place] [address] [phone] (fax) Transesophageal Echocardiogram-[facility] Name: KRISTY [...] Location: A MASON was performed in the [employer] [facility] without complications Anesthesia Pharyngeal anesthesia with viscous [...] examination with the fellow Procedure Staff ReadingGroup: [facility] Referring Physician: RUDY KING Gas Inspector: DORIAN Walker Ordering Physician: Hay William MD No nuclear medicine results found for the past 12 months Relevant Imaging Results Transthoracic echo (TTE) limited 1 1 [facility] Heart Station [address] [place] [address] [phone] (fax) Echocardiogram-[facility] Name: KRISTY DOHERTY Study Date: 04/20/2025 01:28 PM B/P: 83 mmHg/58 mmHg HR: 96 bpm Date of : 1955 Location: [facility] [...] No pericardial effusion. Procedure Staff Reading Group: [facility] Referring Physician: RUDY KING Gas Inspector: June Brumfield RDCS, RVT, RN, BSN Ordering [...] Franco MD PGY-2 Internal Medicine Resident / [facility] Cosigned by Fani Denney MD at 04/21/2025 [...] from the original note were not included. [facility] Medicine Daily Progress Note - 04/21/2025 8:20 AM; Room: [address] [place] [address] Admission: 04/19/2025 10:46 AM; Length of stay: 2 days THE HOSPITALIST TEAM PREFERS TO USE Alex and Ani FOR NON-URGENT COMMUNICATION 7AM- 7PM. IF I DO NOT RESPOND WITHIN 20 MINUTES OR URGENT MATTERS, PLEASE CALL THROUGH THE PCAT INSTRUCTOR. FROM 7PM-7AM, PLEASE PAGE [phone](COVR). Code Status: Full Code Barriers to Discharge: [...] showed early tamponade. Patient was taken to mushroom laborer for Pericardiocentesis. Right heart cath was not [...] due to hypotension. Coronary artery disease involving [place] coronary artery of [place] heart with angina pectoris - Nonobstructive. - [...] CORTISOL 11.2 04/20/2025 No results found for: [id number] , IRON , TIBC , C3 , C4 , COLLIN , CANCA , ASO , PSA , CEA , CA125 , CA199 , AFP , CA153 Imaging Transthoracic echo (TTE) limited 1 1 [facility] Heart Station [address] [place] [id number] [phone] (fax) Echocardiogram-[facility] Name: KRISTY DOHERTY Study Date: 04/20/2025 01:28 PM B/P: 83 mmHg/58 mmHg HR: 96 bpm Date of : 1955 Location: [facility] [...] No pericardial effusion. Procedure Staff Reading Group: [facility] Referring Physician: RUDY KING Gas Inspector: June Brumfield RDCS, RVT, RN, BSN Ordering [...] (pending clinical course) Signed Osito Kline MD [facility] Medicine 04/21/2025 8:20 AM * Alba [...] 111 -- 93 % -- 04/19/25 1730 91/67 -- -- 104 -- 94 % -- [...] Value Ventricular Rate 112 Atrial Rate 112 MI Interval 186 QRS DURATION 114 QT Interval 342 QTC CALCULATION(BAZETT) 466 P Milton 50 R-Milton 19 T Wave Milton 96 Impression Sinus tachycardia with occasional Premature [...] (TTE) limited Result Date: 04/19/2025 1 1 [facility] Heart Station [address] [place] [address] [phone] (fax) Echocardiogram-[facility] Name: KRISTY DOHERTY Study Date: 04/19/2025 02:13 PM B/P: / HR: Date of : 1955 Location: [facility] Height: 68 in. Age: 69 year(s) Patient Room: 3183 Weight: 182 lb. Gender: Male Patient Status: InPt BSA: 1.96 m2 Indication: pericardialeffusion, h/o 35mm Watchman FLX Examination: Limited Echo Image Quality: Fair Findings Pericardium: Moderate pericardial effusion baseline. Post pericardiocentesis there is minimal pericardial effusion. Procedure Staff Reading Group: [facility] Referring Physician: RUDY KING Gas Inspector: SAMI Starr, RDCS Ordering Physician: VENU SAMANIEGO Complete Echo (TTE) w/wo Imaging Agent, Strain, 3D, Bubble Study Result Date: 04/19/2025 1 1 MI Heart [facility] Heart Station [address] [place] [address]. [place] [address] (fax) Echocardiogram-[facility] Name: KRISTY DOHERTY Study Date: 04/19/2025 12:46 PM B/P: 97 mmHg/71 mmHg HR: Date of : 1955 [facility] early tamponade physiology. Procedure Staff Reading Group: [facility] Gas Inspector: Bryanna Cazares RDCS Ordering Physician: HAKAN Canchola signed by MD Mitesh Vernon on 04/19/2025 at 01:44 PM Limited Transthoracic Echo (TTE) w/wo Contrast, Color Flow, Imaging Agent, Strain, 3D, Bubble Study Result Date: 02/07/2025 1 1 [facility] Heart Station [address] [place] [address] [phone] (fax) Echocardiogram-[facility] Name: KRISTY DOHERTY Study Date: 02/07/2025 08:02 AM B/P: 118 mmHg/85 mmHg HR: 63 bpm Date of : 1955 [facility]: [facility] [...] No pericardial effusion. Procedure Staff Reading Group: [facility] Referring Physician: RUDY KING Gas Inspector: SAMI Starr, RDCS Ordering Physician: CHUCK FUNEZ Transesophageal echo (MASON) Result Date: 12/01/2024 1 [facility] Heart Station [address] [place] [address] [phone] (fax) Transesophageal Echocardiogram-[facility] Name: KRISTY [...] Location: A MASON was performed in the [employer] [facility] without complications Anesthesia Pharyngeal anesthesia with viscous [...] examination with the fellow Procedure Staff ReadingGroup: [facility] Referring Physician: RUDY KING Gas Inspector: DORIAN Walker Ordering Physician: Hay William MD [...] Alba Mena MD PGY-3 Internal Medicine Resident [facility] Cosigned by Hay William MD at 04/20/2025 [...] included. Hospital Medicine Daily Progress Note - 04/20/2025 12:06 PM; Room: [address] [place] [address] Admission: 04/19/2025 10:46 AM; Length of stay: 1 days THE HOSPITALIST TEAM PREFERS TO USE Alex and Ani FOR NON-URGENT COMMUNICATION 7AM- 7PM. IF I DO NOT RESPOND WITHIN 20 MINUTES OR URGENT MATTERS, PLEASE CALL THROUGH THE PCAT INSTRUCTOR. FROM 7PM-7AM, PLEASE PAGE [phone](COVR). Code Status: Full Code Barriers to Discharge: [...] showed early tamponade. Patient was taken to mushroom laborer for Pericardiocentesis. Right heart cath was not [...] due to hypotension. Coronary artery disease involving [place] coronary artery of [place] heart with angina pectoris - Nonobstructive. - [...] , FREET4 , CORTISOL , FEV1 , YJE8OJA , DLCO , RVSP , HDL , LDL No results found for: [id number] , IRON , TIBC , C3 , [...] (pending clinical course) Signed Benedict Pascual MD [facility] Medicine 04/20/2025 12:06 PM * Mansi Aden RD - 04/20/2025 9:51 AM EDT Adult [...] Labs: 0 Lab Value Date/Time BUN 16 04/20/2025514 CREATININE 0.94 04/20/2025 0515 NA 127 (L) 04/20/2025 05 K 3.9 04/20/2025514 MG 2.0 07/04/2022 0806 HGB 12.1 (L) 04/20/2025 0515 WBC 7.50 04/20/2025 0515 BNP 254 Allergies: Allergies[2] Nutrition Problems: Swallowing Assessment: pt denies swallowing difficulty Mouth: pt denies chewing difficulty 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 Answer: Yes 04/19/25 1546 Nutrition Risk: Low Nutrition Diagnosis: None at this time Malnutrition Assessment: Per Registered Dietitian assessment and evaluation, patient does not currently meet criteria OR there is not enough information to support the diagnosis of malnutrition per the clinical criteria set by the Academy of Nutrition and Dietetics (AND) and the [place] Society of Enteral and Parenteral Nutrition (ASPEN). [...] To reach the Clinical Dietitian, please utilize [employer] chat Wednesday-Wednesday from 8AM-4PM or call extension [phone]. For weekends (Wednesday-Wednesday) and holidays, the Clinical Dietitian can be reached via pager ([phone]) from 9AM-3PM. The Clinical Nutrition Department is unable to respond to [employer] chat messages on Sundays and s. [1] [...] an 69 y.o. male who came from [place] with chest pain with radiation to neck andback. Past medical history of heart failure with reduced ejection fraction, hypertension, coronary artery disease, cardiomyopathy nonischemic (AICD placed), hyperlipidemia, atrial fibrillation statuspost [facility] , asthma. Patient presents from [place] with chest pain radiating to the neck [...] elevated wedge pressure and RV pressures. A Witt-Shannan catheter was placed for further monitoring and the patient was transferred to the medical ICU. PMH: Patient has a past medical history of Asthma (07/29/2012), CHF (congestive heart failure) ([facility]), Coronary artery disease, History of malignant neoplasm [...] LDL 69 04/24/2025 No results found for: [id number] , IRON , TIBC , C3 , [...] Performed: Right heart catheterization. Placement of a PAPER SORTER AND COUNTER Witt-Shannan catheter for hemodynamic monitoring. Access into the right internal jugular vein under ultrasound guidance. Methods: Procedure was explained to the patient with risks and benefits; he signed informed consent. he was brought to the mushroom laborer in a fasting state. The right neck area was prepped and draped in usual fashion. Micropuncture technique was used for access under ultrasound guidance into the right internal jugular vein. A 6-Cambodian x 11 cm sheath was placed. A 6-Cambodian Carrasquillo catheter was used for right heart catheterization and measurement of pressures and calculation of cardiac output using the estimated [place] method. Carrasquillo catheter was removed. Over a wire to the access sheath was upsized to a 9 Cambodian introducer sheath. A PAPER SORTER AND COUNTER Witt-Shannan catheter was advanced with the aid of a V18 wire and the distal end of the catheter was advanced to the distal segment of the right pulmonary artery. The Witt-Shannan catheter was secured in place. he tolerated [...] with biventricular failure. Successful placement of a PAPER SORTER AND COUNTER Witt-Shannan catheter to guide management of heart failure. [...] on 04/20 due to resolution of effusion Witt Shannan placed on 04/24 PA 37/24 (30) [...] Pressor support: Milrinone Lines (location & placement): Witt Shannan DVT prophylaxis: Heparin subq Diet: Regular Code Status: FULL This note was completed using a voice paper cutting machine operator system. Every effort was made to ensure accuracy. However, inadvertent computerized paper cutting machine operator errors may be present. Karsten Gage PGY2 IM Resident [facility] 04/24/25 4:38 PM [1] Current Facility-Administered Medications: acetaminophen (Tylenol) tablet 650 mg, 650 mg, oral, q6h PRN, Benedict Christopher MD albuterol 90 mcg/actuation inhaler 1 puff, 1 puff, inhalation, BID PRN, Benedict Christopher MD allopurinol (Zyloprim) tablet 300 mg, 300 mg, oral, Daily, Benedict Christopher MD, 300 mg at 04/24/25916 aspirin chewable tablet 81 mg, 81 mg, [...] of Asthma (07/29/2012), CHF (congestive heart failure) ([facility]), Coronary artery disease, History of malignant neoplasm [...] Value Ventricular Rate 99 Atrial Rate 99 MI Interval 196 QRS DURATION 104 QT Interval 322 QTC CALCULATION(BAZETT) 413 P Milton 43 R-Milton 21 T Wave Milton 67 Impression Normal sinus rhythm Low voltage [...] Bubble Study Result Date: 04/19/2025 1 1 [facility] Heart Station [address] [place] [address] [phone] (fax) Echocardiogram-[facility] Name: KRISTY DOHERTY Study Date: 04/19/2025 12:46 PM B/P: 97 mmHg/71 mmHg HR: Date of : 1955 [facility] early tamponade physiology. Procedure Staff Reading Group: [facility] Gas Inspector: Bryanna Cazares RDCS Ordering Physician: HAKAN Canchola signed by MD Mitesh Vernon on 04/19/2025 at 01:44 PM Limited Transthoracic Echo (TTE) w/wo Contrast, Color Flow, Imaging Agent, Strain, 3D, Bubble Study Result Date: 02/07/2025 1 1 [facility] Heart Station [address] [place] [address] [phone] (fax) Echocardiogram-[facility] Name: KRISTY DOHERTY Study Date: 02/07/2025 08:02 AM B/P: 118 mmHg/85 mmHg HR: 63 bpm Date of : 1955 [facility]: [facility] [...] No pericardial effusion. Procedure Staff Reading Group: [facility] Referring Physician: RUDY NADERER Gas Inspector: SAMI Starr, RDCS Ordering Physician: CHUCK FUNEZ Transesophageal echo (MASON) Result Date: 12/01/2024 1 [facility] Heart Station [address] [place] [address] [phone] (fax) Transesophageal Echocardiogram-[facility] Name: KRISTY [...] Location: A MASON was performed in the [employer] without complications Anesthesia Pharyngeal anesthesia with viscous [...] examination with the fellow Procedure Staff ReadingGroup: [facility] Referring Physician: RUDY KING Gas Inspector: DORIAN Walker Ordering Physician: Hay William MD No nuclear medicine results found for the past 12 months Relevant Imaging Results Complete Echo (TTE) w/wo Imaging Agent, Strain, 3D, Bubble Study 1 1 [facility] Heart Station [address] [place] [address] [phone] (fax) Echocardiogram-[facility] Name: KRISTY DOHERTY Study Date: 04/19/2025 12:46 PM B/P: 97 mmHg/71 mmHg HR: Date of : 1955 Location: [facility] Height: 68 in. Age: 69 year(s) Patient [...] early tamponade physiology. Procedure Staff Reading Group: [facility] Gas Inspector: Bryanna Cazares RDCS Ordering Physician: HAKAN REYES [...] with any questions Brenden Vivar MD PGY-4 Aeronautical Engineering Teacher [facility] [1] Family History Problem Relation Name Age [...] Agent, Strain, 3D, Bubble Study 1 1 [facility] Heart Station [address] [place] [address] (fax) Echocardiogram-[facility] Name: KRISTY DOHERTY Study Date: 04/19/2025 12:46 PM B/P: 97 mmHg/71 mmHg HR: Date of : 1955 [facility] early tamponade physiology. Procedure Staff Reading Group: [facility] Gas Inspector: Bryanna Cazares RDCS Ordering Physician: HAKAN REYES [...] PM THE HOSPITALIST TEAM PREFERS TO USE [employer] CHAT FOR NON-URGENT COMMUNICATION 7AM- 7PM. IF I DO NOT RESPOND WITHIN 20 MINUTES OR URGENT MATTERS, PLEASE CALL THROUGH THE PCAT INSTRUCTOR. FROM 7PM-7AM, PLEASE PAGE [phone](COVR). Chief Complaint Chest pain History of Present Illness Kristy Doherty is an 69 y.o. male who came from [place] with chest pain with radiation to neck andback. Past medical history of heart failure with reduced ejection fraction, hypertension, coronary artery disease, cardiomyopathy nonischemic (AICD placed), hyperlipidemia, atrial fibrillation statuspost [facility] , asthma. Patient presents from [place] with chest pain radiating to the neck [...] small pericardial effusion. Workup was negative for [place] Daily Update: patient arrived from [place]. Pain has improved to 2/10 Today's Plan: [...] patients blood pressure Coronary artery disease involving [place] coronary artery of [place] heart with angina pectoris Continue aspirin plavix [...] this hospital stay by a member of [facility]. Past Medical History Medical History[1] Past [...] 04/19/2025 12:19:35 PM Signed Hakan Reyes PA-C [facility] Medicine 04/19/2025 12:20 PM [1] Past Medical [...] Consent: Obtained from patient Time out: A [email or web address] [facility] Organization time-out was held immediately before procedure indicating procedure, procedure alemite operator, patient, name, date of , indication, access site, listed allergies. Sedation: None Anesthesia: Local 1% lidocaine Procedure summary: The left femoral vein was identified under ultrasound. Using ultrasound the left femoral vein was seen non pulsating. After the patient was draped and cleaned in usual fashion a sterile drape was placed over the patient. The ultrasound was then covered with sterile probe. Sterile ultrasound gel was placed at site and large bore needle was inserted under direct ultrasound visual ization into the vein after appropriate local numbing. Nonpulsatile dark venous blood was aspiratedeasily through the syringe. Syringe was removed and guidewire was inserted through the needle. Needle was then removed and ultrasound was used to confirm placement of the guidewire in the vein. Largescalpel incision was then created along the tract of the guidewire followed by dilation. A previously flushed 13F temporary dialysis catheter was then placed over the guidewire after dilator was removed. All ports aspirated dark venous blood easily and flushed. Line was sutured in place and steriledressing was placed over the catheter at the insertion site. Estimated blood loss other than what was aspirated: Less than 10 cc Total aspirated blood approximately 5 ml Complications: None Hakan López MD Pulmonary Disease & Critical Care Medicine [facility] Cosigned by Pepe Anthony MD at 04/28/2025 [...] ESTIMATED BLOOD LOSS: 5 ml Ayden Ordaz [facility] Fellow [facility] Cosigned by Pepe Anthony MD at 04/26/2025 3:56 PM EDT Associated attestation - Pepe Anthony MD - 04/26/2025 3:56 PM EDT The procedure was performed/supervised by the trainee who is fully certified to perform such procedures. I was not present for the procedure. NOT BILLABLE. documented in this encounter Consult Notes * Brenda Darryn - 05/04/2025 8:21 AM EDTAssociated Order(s): IP [...] at this time - follow up with [facility] on AVS - Patient may benefit from [facility] for therapies or Outpatient therapies - rolling walker recommended by OT; [id number] and script sent to [facility] yesterday; awaiting update if insurance will cover and if [facility] can deliver to bedside 1000 - met with Patient in room; reviewed discharge planning - Patient agreeable to [facility] (does not prefer outpatient) but wants to wait until arrives to hospital today before choosing agencies to send any referrals - Patient agreeable to rolling walker arrangements; called [facility] and they confirmedthey have the rolling walker out for delivery today, to bring to bedside at hospital 1230 - met with Patient and spouse and reviewed discharge planning - Patient and spouse agreeable to [facility], provided preference of 1. [facility] [place] 2. [facility]; referrals sent, via [employer] system, awaiting replies - information provided that [facility] is planned to deliver a new rolling [...] feel safe doing that alone with Patient; group underwriter providedinformation/education about usual PCP process, but agreeable to asking treating physician this admission if they feel hospital bed is appropriate for Patient and if they deem appropriate to provide prescription and clinical documentation; awaiting outcome 1320 - called [facility] as Patient's spouse requested them; they do not offer hospital beds and recommended contacting [facility]; talked with Patient and spouse, they are agreeable to [facility]; referral for hospital bed faxed 1623 - Ru confirmed Patient received rolling walker delivery [facility] bedside [facility], they confirmed they have made arrangements with family for deliveryto the home 1636 - AVS sent to [facility], via [employer] system * Renetta Broussard MD - 04/30/2025 6:08 PM EDTAssociated Order(s): IP CONSULT TO PALLIATIVE/INTEGRATIVE CARE Images from the original note were not included. [facility] PALLIATIVE CARE CONSULTATION Date of Service: [...] has a known reduced ejection fraction with [place] heart Association class 2-3. He has an ICD placed but according to the patient it has never gone off. Echocardiogram on April 23 showed ejection fraction 20% with severely reduced right ventricle systolic function, oxcv-ns-axpvyyuh MR, mild AV regurg, mild TR, elevated [...] history: Patient is not and lives in [facility] with his significant other. Her nameis Liliaroc Ware. He believes that they have ACP [...] mouth in the morning. 08/18/24 08/18/25 Yes Hya William MD albuterol 90 mcg/actuation inhaler Inhale [...] able to go to a trip to [place] this past year and he is very [...] if we can be of additional assistance [phone]. Total time-60 minutes, [id number] Electronically signed by: Renetta Broussard MD [1] [...] Daily, Benedict Christopher MD, 40 mg at 828 epoprostenol (Veletri) 500 mcg in sodium chloride [...] Hakan Luz MD, 1 tablet at 04/29/25 210 simethicone (Mylicon) chewable tablet 80 mg, 80 mg, oral, q6h PRN, Hakan Luz MD, 80 mg at 04/28/25 2250 sodium bicarbonate 150 mEq in sterile water 1,000 mL infusion, 200 mL/hr, intravenous, Continuous, Kurtis Gonzalez MD, Last Rate: 200 mL/hr at 04/30/25 1703, 200 mL/hr at 04/30/25 1703 sodium chloride ([place]) 0.65 % nasal spray 1 spray, 1 [...] s/p Watchman procedure, who was transferred from [place] with initial chief complaint of chest and [...] Last Dose Status albuterol 90 mcg/actuation inhaler [id number] Inhale 1 puff 2 times daily. Historical ProviderMD Active allopurinol (Zyloprim) 300 mg tablet [id number] Yes Take 300 mg by mouth in the morning. German Walden MD 04/18/2025 Morning Active amoxicillin (Amoxil) 500 mg tablet [id number] No Take 4 tablets (2,000 mg) by mouth 1 (one) time if needed (30-60 minute prior to dental procedures) for up to 20 doses. Patient not taking: Reported on 04/19/2025 Hay William MD Unknown Active aspirin 81 mg chewable tablet [id number] Yes Chew 1 tablet (81 mg) with breakfast. Hay William MD 04/18/2025 Morning Active atorvastatin (Lipitor) 40 mg tablet [id number] Yes Take 1 tablet (40 mg) by mouth at bedtime. Hay William MD 04/18/2025 Bedtime Active clopidogrel (Plavix) 75 mg tablet [id number] Yes Take 1 tablet (75 mg) by mouth in the morning. Hay William MD 04/18/2025 Morning Active dapagliflozin propanediol (Farxiga) 10 mg [id number] Yes Take 1 tablet (10 mg) by mouth once daily asdirected. Shania Chauhan CNP 04/18/2025 Morning Active Dupixent Syringe 300 mg/2 mL syringe injection [id number] No Inject 300 mg under the skin every 14 (fourteen) days. German ProviderMD 04/07/2025 Active fluticasone (Flonase) 50 mcg/actuation nasal spray [id number] Yes Administer 1 spray into each nostril two times daily. Shake gently. Before first use, prime pump. After use, clean tip and replace cap.German ProviderMD 04/18/2025 Bedtime Active fluticasone propion-salmeteroL (Advair Diskus) 500-50 mcg/dose diskus inhaler [id number] Yes Inhale 1puff two times daily. German ProviderMD 04/18/2025 Bedtime Active metoprolol succinate XL (Toprol-XL) 50 mg 24 hr tablet [id number] Yes Take 1 tablet (50 mg) by mouth once daily as directed. Do not crush or chew. Hay William MD 04/18/2025 Morning Active sacubitril-valsartan (Entresto) 97-103 mg tablet [id number] Yes Take 1 tablet by mouth two times daily. Hay William MD 04/18/2025 Bedtime Active spironolactone (Aldactone) 25 mg tablet [id number] Yes Take 1 tablet (25 mg) by [...] Date Asthma 07/29/2012 CHF (congestive heart failure) ([facility]/HCC) Coronary artery disease History of malignant neoplasm [...] heart dysfunction. Approved by:Benedict Katz04/23/2025 5:40 PM. IHowie,have reviewed the image(s) and agree with the [...] Conklin MD Nephrology Fellow PGY 5 - [facility] Nephrology Pager: [phone] Phone (7am - 4pm): [phone] [1] Allergies Allergen Reactions Octacosanol Unknown Other [...] of Asthma (07/29/2012), CHF (congestive heart failure) ([facility]), Coronary artery disease, History of malignant neoplasm [...] Value Ventricular Rate 99 Atrial Rate 99 MI Interval 196 QRS DURATION 104 QT Interval 322 QTC CALCULATION(BAZETT) 413 P Milton 43 R-Milton 21 T Wave Milton 67 Impression Normal sinus rhythm Low voltage [...] Bubble Study Result Date: 04/19/2025 1 1 [facility] Heart Station [address] [place] [address] [phone] (fax) Echocardiogram-[facility] Name: KRISTY DOHERTY Study Date: 04/19/2025 12:46 PM B/P: 97 mmHg/71 mmHg HR: Date of : 1955 [facility] [...] early tamponade physiology. Procedure Staff Reading Group: [facility] Gas Inspector: Bryanna Cazares RDCS Ordering Physician: HAKAN Moodytronically signed by MD Mitesh Vernon on 04/19/2025 at 01:44 PM Limited Transthoracic Echo (TTE) w/wo Contrast, Color Flow, Imaging Agent, Strain, 3D, Bubble Study Result Date: 02/07/2025 1 1 [facility] Heart Station [address] [place] [address] [phone] (fax) Echocardiogram-[facility] Name: KRISTY DOHERTY Study Date: 02/07/2025 08:02 AM B/P: 118 mmHg/85 mmHg HR: 63 bpm Date of : 1955 [facility] [...] No pericardial effusion. Procedure Staff Reading Group: [facility] Referring Physician: RUDY KING Gas Inspector: SAMI Starr, RDCS Ordering Physician: CHUCK FUNEZ Transesophageal echo (MASON) Result Date: 12/01/2024 1 [facility] Heart Station [address] [place] [address] [phone] (fax) Transesophageal Echocardiogram-[facility] Name: KRISTY [...] Location: A [facility] was performed in the [facility] without complications Anesthesia Pharyngeal anesthesia with viscous [...] examination with the fellow Procedure Staff ReadingGroup: [facility] Referring Physician: RUDY KING Gas Inspector: DORIAN Walker Ordering Physician: Hay William MD No nuclear medicine results found for the past 12 months Relevant Imaging Results Complete Echo (TTE) w/wo Imaging Agent, Strain, 3D, Bubble Study 1 1 [facility] Heart Station [address] [place] [address] [phone] (fax) Echocardiogram-[facility] Name: KRISTY DOHERTY Study Date: 04/19/2025 12:46 PM B/P: 97 mmHg/71 mmHg HR: Date of : 1955 [facility] early tamponade physiology. Procedure Staff Reading Group: [facility] Gas Inspector: Bryanna Cazares RDCS Ordering Physician: HAKAN REYES [...] with any questions Brenden Vivar MD PGY-4 Aeronautical Engineering Teacher [facility] [1] Family History Problem Relation Name Age [...] are going to take him to the [facility] for emergent pericardiocentesis documented in this encounter [...] Lying Lying Pulse: 88 88 89 Resp: 19 18 19 Temp: 36.4 ??C (97.5 ??F) [...] Brenda Ayers RN Rapid Response Team Nurse [phone] 05/03/2025 4:27 PM * Yamila Jacques LPN [...] nurse, but encouraged to reach out to [facility] [employer] [employer] if anything changes over night. Johnathan Chowdhury RN Rapid Response Team Nurse [phone] 05/03/2025 12:23 AM * Kelly Nuno RN [...] at this time, will review and notify group underwriter if/when to administer. documented in this encounter [...] EDTAssociated Problem(s): Cardiogenic shock (CMS/HCC) - Required Witt Shannan and dobutamine in ICU. - Improving. * Assessment & Plan Note - Benedict Pascual MD - 05/03/2025 12:13 PM EDTAssociated Problem(s): Chest pain - Echo on admission showed early tamponade. Patient was taken to [facility] for Pericardiocentesis. Right heart cath was not suggestive for tamponade. 300 ml serosanguinous fluid. - Repeated echo showed mild effusion. * Assessment & Plan Note - Benedict Pascual MD - 05/03/2025 12:13 PM EDTAssociated Problem(s): Pericardial effusion - Echo on admission showed early tamponade. Patient was taken to [facility] for Pericardiocentesis. Right heart cath was not [...] PM EDTAssociated Problem(s): Coronary artery disease involving [place] coronary artery of [place] heart with angina pectoris - Nonobstructive. - [...] EDTAssociated Problem(s): Right ventricular dysfunction - Required Witt Shannan and dobutamine in ICU. - Improving. * Care Plan - Daisy Dior RN - 05/03/2025 9:03 AM EDT Problem: Pain - Adult Goal: Verbalizes/displays adequate comfort level or baseline comfort level Outcome: Progressing Flowsheets (Taken 05/03/2025815) Verbalizes/displays adequate comfort level or baseline comfort [...] and behaviors that affect risk of falls Loop fall precautions as indicated by assessment Educate [...] for the shift include stable labs * Bere Plan - Little Hector RN - 05/01/2025 10:59 AM EDT The patient is Moderately Unstable - Medium risk of patient condition declining or worsening The patient's goals for the shift include Comfort, rest The clinical goals for the shift include VSS * Bere Qiu - Viral Quiles RN - 04/30/2025 8:37 PM EDT The patient is Moderately Unstable - Medium risk of patient condition declining or worsening The patient's goals for the shift include comfort The clinical goals for the shift include VSS * Care Uyen - Viral Quiles RN - 04/28/2025 8:35 PM EDT The patient is Moderately Unstable - Medium risk of patient condition declining or worsening The patient's goals for the shift include comfort The clinical goals for the shift include VSS * Care Uyen - Viral Quiles RN - 04/27/2025 8:58 [...] Request Once Comments: Please send up a [facility] Boost Chocolate. Thank you! 04/25/25 1227 04/24/25 1717 Regular Diet Heart Healthy/HTN, CABG,Stroke, (2gNA, low fat, low cholesterol) Diet effective now Question Answer Comment Room Service? Yes Fat restriction: Heart Healthy/HTN, CABG,Stroke, (2gNA, low fat, low cholesterol) 04/24/25 171 Physician Expected Discharge Date: 04/22/2025 Discharge Delays: [...] showed early tamponade. Patient was taken to [facility] for Pericardiocentesis. Right heart cath was not suggestive for tamponade. 300 ml serosanguinous fluid. - Monitor BP. - Continue colchicine per Cardiology. - Repeated echo showed mild effusion. * Assessment & Plan Note - Benedict Pascual MD - 04/24/2025 4:13 PM EDTAssociated Problem(s): Pericardial effusion - Echo showed early tamponade. Patient was taken to [facility] for Pericardiocentesis. Right heart cath was not [...] PM EDTAssociated Problem(s): Coronary artery disease involving [place] coronary artery of [place] heart with angina pectoris - Nonobstructive. - Continue aspirin, Plavix, Lipitor. * Pre-Sedation Documentation - Hay William MD - 04/24/2025 2:43 PM EDT Patient: Kristy Doherty Procedure Information Date/Time: 04/24/25 1500 Procedure: Right heart cath Location: [facility] / [facility] (Cath) Providers: Hay William [...] Equipment Requests * Significant Event - Birdie Schultz RN - 04/24/2025 12:50 PM EDT 04/24/25 [...] Not Interested Does the patient have a telephonic case manager assigned to them through their insurance? No [...] showed early tamponade. Patient was taken to [facility] for Pericardiocentesis. Right heart cath was not suggestive for tamponade. 300 ml serosanguinous fluid. - Monitor BP. - Continue colchicine per Cardiology. - Repeated echo showed mild effusion. * Assessment & Plan Note - Benedict Pascual MD - 04/23/2025 3:28 PM EDTAssociated Problem(s): Pericardial effusion - Echo showed early tamponade. Patient was taken to [facility] for Pericardiocentesis. Right heart cath was not [...] PM EDTAssociated Problem(s): Coronary artery disease involving [place] coronary artery of [place] heart with angina pectoris - Nonobstructive. - [...] showed early tamponade. Patient was taken to [facility] for Pericardiocentesis. Right heart cath was not suggestive for tamponade. 300 ml serosanguinous fluid and pigtail was placed. - Monitor BP. - Continue colchicine per Cardiology. - Repeat echo on Monday 04/23. * Assessment & Plan Note - Osito Kline MD - 04/22/2025 8:13 PM EDTAssociated Problem(s): Pericardial effusion - Echo showed early tamponade. Patient was taken to [facility] for Pericardiocentesis. Right heart cath was not [...] PM EDTAssociated Problem(s): Coronary artery disease involving [place] coronary artery of [place] heart with angina pectoris - Nonobstructive. - [...] showed early tamponade. Patient was taken to [facility] for Pericardiocentesis. Right heart cath was not [...] showed early tamponade. Patient was taken to [facility] for Pericardiocentesis. Right heart cath was not [...] AM EDTAssociated Problem(s): Coronary artery disease involving [place] coronary artery of [place] heart with angina pectoris - Nonobstructive. - [...] Progressing * Assessment & Plan Note - Benedcit Pascual MD - 04/20/2025 12:20 PM EDTAssociated Problem(s): Hyponatremia - Follow up urine Na and osmol. - Improving. * Assessment & Plan Note - Benedict Pascual MD - 04/20/2025 12:20 PM EDTAssociated Problem(s): Chest pain - Echo showed early tamponade. Patient was taken to [facility] for Pericardiocentesis. Right heart cath was not suggestive for tamponade. 300 ml serosanguinous fluid and pigtail was placed. - Monitor BP. - Continue colchicine per Cardiology. - Follow up blood and fluid cx. - Repeat echo today. * Assessment & Plan Note - Benedict Pascual MD - 04/20/2025 12:20 PM EDTAssociated Problem(s): Pericardial effusion - Echo showed early tamponade. Patient was taken to [facility] for Pericardiocentesis. Right heart cath was not [...] PM EDTAssociated Problem(s): Coronary artery disease involving [place] coronary artery of [place] heart with angina pectoris - Nonobstructive. - [...] and behaviors that affect risk of falls Loop fall precautions as indicated by assessment Educate [...] small pericardial effusion. Workup was negative for [place] Daily Update: patient arrived from [place]. Pain has improved to 2/10 Today's Plan: [...] small pericardial effusion. Workup was negative for [place] Daily Update: patient arrived from [place]. Pain has improved to 2/10 Today's Plan: [...] Patient: Kristy Doherty Procedure Information Date/Time: 04/19/25 4595 Procedures: Left heart cath Right heart cath Pericardiocentesis Location: [facility] / [facility] (Cath) Providers: Venu Samaniego [...] PM EDTAssociated Problem(s): Coronary artery disease involving [place] coronary artery of [place] heart with angina pectoris Continue aspirin plavix [...] documented in this encounter Plan of Treatment DateTypeDepartmentCare Team (Latest Contact Info)Xwxlbxmdhdd80/05/2025 10:00 AM ESTOffice Visit [facility] [address] [address] Hay William MD [address] [facility] [address] [facility] [place] [address] NameTypePriorityAssociated DiagnosesDate/TimeCardiac event monitorCardiac ServicesRoutine Paroxysmal atrial fibrillation (CMS/HCC) PVC (premature ventricular contraction) 05/04/2025 4:04 PM EDTNameTypePriorityAssociated DiagnosesOrder ScheduleCardiac event monitorCardiac ServicesRoutine Paroxysmal atrial fibrillation (CMS/HCC) PVC (premature ventricular contraction) Once for 1 Occurrences starting 04/24/2025 until 04/24/2025BCLabRoutine Hematoma of intravenous catheter site, sequela Expected: 05/11/2025 (Approximate), Expires: 05/04/2026asic metabolic panelLab Routine Hyponatremia Expected: 05/11/2025 (Approximate), Expires: 05/04/2026NameTypePriority Associated DiagnosesOrder ScheduleAmbulatory referral to Cardiac RehabOutpatient ReferralRoutine Heart failure with reduced ejection fraction (CMS/HCC) Expected: 05/03/2025 (Approximate), Expires: 11/01/2025documented as of this encounter Procedures Procedure NamePriorityDate/TimeAssociated DiagnosisCommentsCBC WITH AUTO LZRYGKOGBHEFMllunhl18/17/2025 4:18 AM EDT CBC AND VPQQHKROLSBUTchuoah69/17/2025 4:18 AM EDT ZCBOYOXICBTcftaqr10/17/2025 4:18 AM EDT EJDUXMSNDKdlrgzu51/17/2025 4:18 AM EDT BASIC METABOLIC PANELAdd-On05/04/2025 4:18 AM EDT US ZTKHRvzognm02/16/2025 3:56 PM EDT BODY FLUID RXHKIEBBasewsu94/16/2025 12:59 PM EDT RESPIRATORY ASSESS AND TREAT NYROHIDLEtbxbzy10/16/2025 8:00 AM EDTCBC WITH AUTO XNBUFCFIHKBWKzgibgx82/16/2025 3:51 AM EDT CBC AND JACOYXCEEQTTQnxkuyv27/16/2025 3:51 AM EDT FNOUWDSJUYVppdzmb23/16/2025 3:51 AM EDT RHVFAAAPRTnedjco74/16/2025 3:51 AM EDT BASIC METABOLIC PANELAdd-On05/03/2025 3:51 AM EDT RESPIRATORY ASSESS AND TREAT WPUMTOEIIjmzkhe54/15/2025 8:00 AM EDTCBC WITH AUTO HFJACTFXGKSMZhqnrjq21/15/2025 3:13 AM EDT CBC AND TIZYLAHDEXIJFisddyk27/15/2025 3:13 AM EDT YPXZVRTJUDSdkjups93/15/2025 3:13 AM EDT SGEKJGJSXYdkfouv92/15/2025 3:13 AM EDT COMPREHENSIVE METABOLIC CMTUQNlxwhgb85/15/2025 3:13 AM EDT ZXVBSHHJVUOacdb97/14/2025 8:30 AM EDT SCJWIQFQQPmayx94/14/2025 8:30 AM EDT BASIC METABOLIC MRYIPUmpks28/14/2025 8:30 AM EDT RESPIRATORY ASSESS AND TREAT UMDFLZIXRslogef09/14/2025 8:00 AM EDTCBC WITH AUTO NFYHMFOSPOXJVvbvvjy90/14/2025 3:05 AM EDT CBC AND UAOTNVRRAJJJGjcdrbb37/14/2025 3:05 AM EDT PHOSPHORUSAdd-On05/01/2025 3:05 AM EDT MAGNESIUMAdd-On05/01/2025 3:05 AM EDT COMPREHENSIVE METABOLIC RZXGHZyjukee33/14/2025 3:05 AM EDT ULUNWHIFDAKjibr37/14/2025 12:47 AM EDT ABSUBEQWRTlqyo77/14/2025 12:47 AM EDT BASIC METABOLIC KIBDJJetel49/14/2025 12:47 AM EDT WKFFLONDHZQxtqc49/13/2025 8:12 PM EDT LPBXGOFMOBvzkd09/13/2025 8:12 PM EDT BASIC METABOLIC JABLDRbefh30/13/2025 8:12 PM EDT PHOSPHORUSPending Zbhcysqks35/13/2025 3:22 PM EDT MAGNESIUMPending Iujitoczt47/13/2025 3:22 PM EDT BASIC METABOLIC PANELPending Ifoxrbvlz12/13/2025 3:22 PM EDT PHOSPHORUSPending Qdeyqnpoo86/13/2025 11:13 AM EDT MAGNESIUMPending Rpzgvqata50/13/2025 11:13 AM EDT BASIC METABOLIC PANELPending Drrunzxyw40/13/2025 11:13 AM EDT LIMITED ECHOCARDIOGRAM (TTE) W/ LTD DOPPLER AND COLOR UDPZRcxzpik79/13/2025 8:35 AM EDT RESPIRATORY ASSESS AND TREAT DKXULLFPUxrjbrd32/13/2025 8:00 AM EDTPHOSPHORUS Pending Shtvmzgqz60/13/2025 7:48 AM EDT MAGNESIUMPending Fcuatypob37/13/2025 7:48 AM EDT BASIC METABOLIC PANELPending Tliednxak96/13/2025 7:48 AM EDT CBC WITH AUTO DIFFERENTIALPending Ifvnvusnw37/13/2025 4:10 AM EDT CBC AND IUGAOGVHBAOGRuiycni54/13/2025 4:10 AM EDT PHOSPHORUSPending Ysevhmqyj72/13/2025 4:10 AM EDT MAGNESIUMPending Gpwsznuwf53/13/2025 4:10 AM EDT COMPREHENSIVE METABOLIC PANELPending Kbtutgjaf77/13/2025 4:10 AM EDT PHOSPHORUSPending Pdidsjpwd82/13/2025 12:09 AM EDT MAGNESIUMPending Fsupilbhm46/13/2025 12:09 AM EDT BASIC METABOLIC PANELPending Drolmszlu07/13/2025 12:09 AM EDT PHOSPHORUSPending Wrygiglcm62/12/2025 8:02 PM EDT MAGNESIUMPending Vdiguawxp91/12/2025 8:02 PM EDT BASIC METABOLIC PANELPending Mjtddjclf01/12/2025 8:02 PM EDT BLOOD GAS, VENOUSPending Kqmtokoce61/12/2025 3:38 PM EDT PHOSPHORUSPending Dkwjthzwo10/12/2025 3:38 PM EDT MAGNESIUMPending Fssakflnd13/12/2025 3:38 PM EDT BASIC METABOLIC PANELPending Svsnbenvm73/12/2025 3:38 PM EDT PHOSPHORUSPending Yavbowwvn99/12/2025 1:02 PM EDT MAGNESIUMPending Gwlgwjkdy92/12/2025 1:02 PM EDT BASIC METABOLIC PANELPending Ddzgujjbs44/12/2025 1:02 PM EDT XR CHEST 1 AIHWUbbslfw02/12/2025 11:20 AM EDT IRON AND TIBCAdd-On04/29/2025 8:14 AM EDT PHOSPHORUSPending Diayqfxop43/12/2025 8:14 AM EDT MAGNESIUMPending Kccnotmws29/12/2025 8:14 AM EDT FERRITINAdd-On04/29/2025 8:14 AM EDT BASIC METABOLIC PANELPending Kjxqudfas26/12/2025 8:14 AM EDT RESPIRATORY ASSESS AND TREAT ULKDLNFYRejnhlr92/12/2025 8:00 AM EDTCBC WITH AUTO DIFFERENTIALPending Pfuuicybz45/12/2025 3:04 AM EDT CBC AND KUCWCZZPJNBDXmtezdk30/12/2025 3:04 AM EDT PHOSPHORUSPending Ykocmcpno93/12/2025 3:04 AM EDT MAGNESIUMPending Xkuxqqqsh26/12/2025 3:04 AM EDT BASIC METABOLIC PANELPending Zuwtsdorg67/12/2025 3:04 AM EDT AMMONIAPending Ljcdjwamb60/12/2025 2:38 AM EDT COMPREHENSIVE METABOLIC PANELPending Kzwsmszdh44/12/2025 2:38 AM EDT CRRT THERAPY FLUID MDVUJXzievze61/12/2025 12:30 AM EDTPHOSPHORUSPending Gbafaelcg58/12/2025 12:22 AM EDT MAGNESIUMPending Ftfqbmaly05/12/2025 12:22 AM EDT BASIC METABOLIC PANELPending Xlaahdjyu43/12/2025 12:22 AM EDT PHOSPHORUSPending Vmyhpqrmm79/11/2025 8:10 PM EDT MAGNESIUMPending Dcuimhaee82/11/2025 8:10 PM EDT BASIC METABOLIC PANELPending Yihfoeilr05/11/2025 8:10 PM EDT PHOSPHORUSPending Alcifeafs62/11/2025 3:57 PM EDT MAGNESIUMPending Abcqcwste15/11/2025 3:57 PM EDT COMPREHENSIVE METABOLIC PANELPending Fjfabatak13/11/2025 3:57 PM EDT PHOSPHORUSPending Lhdyyptyv44/11/2025 1:46 PM EDT MAGNESIUMPending Qvbnbfvol65/11/2025 1:46 PM EDT BASIC METABOLIC PANELPending Wemeuduim75/11/2025 1:46 PM EDT POCT GLUCOSE METER UNSOLICITED QQLMHMIJxkcxdt50/11/2025 1:44 PM EDT ABG UNSOLICITED PEBDOWIHpvtrqx09/11/2025 8:54 AM EDT PHOSPHORUSPending Phtjanjgq78/11/2025 8:37 AM EDT MAGNESIUMPending Bembgoytr54/11/2025 8:37 AM EDT BASIC METABOLIC PANELPending Ifmcpgmuj53/11/2025 8:37 AM EDT ABG GNGAXvtpzpz96/11/2025 8:19 AM EDTRESPIRATORY ASSESS AND TREAT PROTOCOL Emwkvft6104/28/2025 8:00 AM EDTCBCPending Fgkrldikt57/11/2025 3:21 AM EDT RESPIRATORY ASSESS AND TREAT SVSOZITLJhrmpbw43/11/2025 3:10 AM EDTPHOSPHORUS Add-On04/28/2025 3:06 AM EDT MAGNESIUMAdd-On04/28/2025 3:06 AM EDT BASIC METABOLIC PANELPending Qpqeplewn75/11/2025 3:06 AM EDT XR ABDOMEN 1 MSSMNEFX30/11/2025 12:50 AM EDT CRRT THERAPY FLUID TCKQLZrtqaon28/11/2025 12:30 AM QBZIJXWXBSNRTUuuou90/11/2025 12:06 AM EDT EYQFKNFYCEmbuz06/11/2025 12:06 AM EDT BASIC METABOLIC AZOSCCfqrl85/11/2025 12:06 AM EDT HEMOGLOBIN AND HEMATOCRIT, AGEAPJjsflnf66/10/2025 7:57 PM EDT MAGNESIUMAdd-On04/27/2025 7:57 PM EDT BASIC METABOLIC IXECNKihsqkp97/10/2025 7:57 PM EDT CRRT THERAPY FLUID NJQTPGijxtap91/10/2025 6:18 PM DYZFFKTUPZEULMzqid05/10/2025 5:38 PM EDT ULAGSIBVUAcfvo46/10/2025 5:38 PM EDT BASIC METABOLIC XPJMHUztke84/10/2025 5:38 PM EDT POCT GLUCOSE METER UNSOLICITED XVDRJQGWtemrax55/10/2025 5:14 PM EDT POCT GLUCOSE METER UNSOLICITED OZMRUEVIzzmanv82/10/2025 12:01 PM EDT POCT GLUCOSE METER UNSOLICITED USDPKJGAvqasmq56/10/2025 10:07 AM EDT HQOHiiwbpr97/10/2025 5:36 AM EDT MVWZBXSAQQGslyp22/10/2025 5:36 AM EDT YYAMVPSLBWopns24/10/2025 5:36 AM EDT BASIC METABOLIC WSYPPYvuvq76/04/2025 5:36 AM EDT CO-KOKSOYQWHiitcbg94/10/2025 4:25 AM EDT XCGRDKXJZOAhqwn54/09/2025 11:59 PM EDT VMATYJBQGHdrci78/09/2025 11:59 PM EDT BASIC METABOLIC DSSKZTgroz15/09/2025 11:59 PM EDT PDNTYCOZFIIwude25/09/2025 4:24 PM EDT GDEIXRFDDRcegm51/09/2025 4:24 PM EDT BASIC METABOLIC VGDEHZvwyv37/09/2025 4:24 PM EDT UREA NITROGEN, URINEPending Kbmyxksat73/09/2025 8:40 AM EDT SODIUM, URINE, RANDOMPending Walmghpvn75/09/2025 8:40 AM EDT CREATININE, URINE, RANDOMPending Gverneahe46/09/2025 8:40 AM EDT URINALYSISPending Yaawhsswg87/09/2025 8:40 AM EDT OYEWdkwhqm66/09/2025 3:05 AM EDT IKFXZQRFXUWfzwqph61/09/2025 3:05 AM EDT GRWUIMBRKNigznot32/09/2025 3:05 AM EDT BASIC METABOLIC CDTRQTmkriuh89/09/2025 3:05 AM EDT CO-GGBIXXEQDqgrmik17/09/2025 2:39 AM EDT XR CHEST 1 KBEGZZAX61/08/2025 4:17 PM EDT BASIC METABOLIC PANELPending Hmnyvmyns92/08/2025 1:12 PM EDT CBCPending Fvumhkyjt21/08/2025 3:22 AM EDT PHOSPHORUSPending Tuebxfiek27/08/2025 3:22 AM EDT MAGNESIUMPending Qlyizfowc57/08/2025 3:22 AM EDT BASIC METABOLIC PANELPending Kvxwhwlsm12/08/2025 3:22 AM EDT SWAN (FLOW DIRECTED CATH) LQLMFTYRPVezwdqe40/07/2025 3:42 PM EDT Right ventricular dysfunction RIGHT HEART UWSWTffywnj28/07/2025 3:42 PM EDT Right ventricular dysfunction CBCPending Krcmdxqqd89/07/2025 4:07 AM EDT MAGNESIUMPending Bdlhslitu16/07/2025 4:07 AM EDT LIPID PANELAdd-On04/24/2025 4:07 AM EDT BASIC METABOLIC PANELPending Iyfgrxnpy02/07/2025 4:07 AM EDT CTA CHEST W IV UJMONWSXSVRN49/06/2025 4:47 PM EDT LIMITED ECHOCARDIOGRAM (TTE) W/ LTD DOPPLER AND COLOR ECMGXdujffx88/06/2025 7:56 AM EDT CBC WITH AUTO DIFFERENTIALPending Xypmjlkad85/06/2025 5:02 AM EDT CBC AND XPWYYFBCJQEMVfnjgoz81/06/2025 5:02 AM EDT C-REACTIVE PROTEINPending Siaooujyp75/06/2025 5:02 AM EDT IXDJFVEVXOTFL37/06/2025 5:02 AM EDT COMPREHENSIVE METABOLIC ZMSIBHLFI26/06/2025 5:[address] CERVICAL SPINE WO IV ZENSSSCMLLWL76/06/2025 3:[address] HEAD WO IV TNBGIGHBXJDM72/06/2025 3:59 AM EDT ECG 12-ZEURAOZY52/06/2025 3:34 AM EDT LIMITED ECHOCARDIOGRAM (TTE) W/ LTD DOPPLER AND COLOR MHWQXcgtila93/03/2025 1:51 PM EDT HYKFFPDSTHHrerfuv66/03/2025 12:25 PM EDT BLOOD OUBHXTURkzdoze12/03/2025 10:09 AM EDT BLOOD SPCUEBJUphyjmr17/03/2025 10:09 AM EDT YQIBqlweli76/03/2025 5:15 AM EDT CORTISOLSTAT Add-on04/20/2025 5:15 AM EDT BASIC METABOLIC PINFAVhpvtue19/03/2025 5:15 AM EDT SODIUM, URINE, CECQCPYrlxnyq81/02/2025 8:28 PM EDT ECG 12-LSTRPfodjpy91/02/2025 6:35 PM EDT QWCKWEMUKOKajsrpl72/02/2025 6:26 PM EDT B-TYPE NATRIURETIC OFMUWUOUzijmoi16/02/2025 6:25 PM EDT LIMITED ECHO (TTE)Idaccis4304/19/2025 3:37 PM EDT PATHOLOGY PLKMZZPfjnfjl96/02/2025 3:23 PM EDT BODY FLUID CELL USNZMDBLPCWCFwqzbun98/02/2025 3:23 PM EDT BODY FLUID CELL COUNT WITH ARSMMBPDXZOSKptretm61/02/2025 3:23 PM EDT BODY FLUID CULTURE AND ANAEROBIC EZOIHHQWshmrsd73/02/2025 3:23 PM EDT BODY FLUID XEVTERBNxscfhr88/02/2025 3:23 PM EDT ANAEROBIC AXXRKBSNxfydeu92/02/2025 3:23 PM EDT BODY FLUID CELL COUNT WITH KJEZJDEGDDBUNfdhalp71/02/2025 3:23 PM EDT NON-DIRECTOR [employer] CYTOLOGY - CELLULAR VOUMJcrusyu16/02/2025 3:23 PM EDT CLIQSDNXZZPZRHOKHHRvwfmsx41/02/2025 3:22 PM EDT Pericardial effusion RIGHT HEART XTGPYxxllfr68/02/2025 3:22 PM EDT Pericardial effusion LEFT HEART OWXBHbbrxtp77/02/2025 3:22 PM EDT Pericardial effusion POCT HBO2%Kxwvjen1404/19/2025 2:47 PM EDT POCT HBO2%Zygizxb1104/19/2025 2:47 PM EDT LIGHT GREEN PPFRcecgnl93/02/2025 2:44 PM EDT C-REACTIVE DAXAKBESbqsqkg75/02/2025 2:44 PM EDT KRYPtcjmxc78/02/2025 2:44 PM EDT EXTRA MIAIMJlilvlr38/02/2025 2:32 PM EDT LAVENDER WQPCnyidza65/02/2025 2:32 PM EDT COMPLETE ECHO (TTE)Exxhlzr9904/19/2025 1:13 PM EDT HIGH SENSITIVITY TROPONIN IAdd-On04/19/2025 12:14 PM EDT SEDIMENTATION RATEAdd-On04/19/2025 12:14 PM EDT PEHIoofzpv84/02/2025 12:14 PM EDT COMPREHENSIVE METABOLIC BATFLShhefhg69/02/2025 12:14 PM EDT ECG 12-OHGHGfesgqo01/02/2025 12:09 PM EDT documented in this encounter Results * (ABNORMAL) Basic metabolic panel (05/04/2025 4:18 AM EDT)ComponentValueRef RangeTest MethodAnalysis TimePerformed AtPathologist CdrlihgebLrirlv616(L)136 - 145 mmol/L1 9:10 AM [facility] ([facility])Potassium3.73.5 - 5.1 mmol/L1 9:10 AM [facility] ([facility])Zeuiwgbq22(L)98 - 107 mmol/L1 9:10 AM [facility] ([facility])QB85164 - 31 mmol/L 05/04/2025 9:10 AM [facility] ([facility])YLC759 - 25 mg/dL05/04/2025 9:10 AM [facility] ([facility])Creatinine1.58(H)0.70 - 1.30 mg/dL 05/04/2025 9:10 AM [facility] ([facility])Ritmaqo2867 - 100 mg/dL 05/04/2025 9:10 AM [facility] ([facility])Calcium7.3(L)8.6 - 10.3 mg/dL 05/04/2025 9:10 AM [facility] ([facility])Anion Hug958 - 20 mmol/L 05/04/2025 9:10 AM [facility] ([facility])eGFR47.1(L)>60.0 mL/min/1.73m* 9:10 AM [facility] ([facility])Comment:[facility]???s estimated glomerular filtration rate (eGFR) will no [...] not disproportionately affect any one group of individuals.BUN/Creatinine Ratio15.81 9:10 AM [facility] ([facility])Specimen (Source)Anatomical Location / LateralityCollection Method / VolumeCollection TimeReceived TimeBloodVenous blood specimen / Unknown Venipuncture / Qlcapwd8605/04/2025 4:18 AM EDT1 4:46 AM EDT Narrative Authorizing ProviderResult TypeResult StatusOmar Samara MURRAY BLOOD ORDERABLES Final ResultPerforming OrganizationAddressCity/State/ZIP CodePhone Number [facility] ([facility]) [address] [place] [address] * (ABNORMAL) CBC auto differential (05/04/2025 4:18 AM EDT)ComponentValueRef RangeTest MethodAnalysis TimePerformed AtPathologist SignatureAuto WBC6.044.00 - 10.60 10*3/uL05/04/2025 5:15 AM [facility] ([facility])RBC3.10(L)4.20 - 5.70 10*6/uL05/04/2025 5:15 AM [facility] ([facility])Hemoglobin9.8 (L)13.0 - 17.0 g/dL05/04/2025 5:15 AM [facility] ([facility])Hematocrit 28.3(L)39.0 - 50.0 %05/04/2025 5:15 AM [facility] ([facility])MCV91.3 82.0 - 98.0 fL05/04/2025 5:15 AM [facility] ([facility])MCH31.627.0 - 33.0 pg05/04/2025 5:15 AM [facility] ([facility])MCHC34.632.0 - 35.0 g/dL05/04/2025 5:15 AM [facility] ([facility])RDW14.711.5 - 15.0 % 05/04/2025 5:15 AM [facility] ([facility])Neutrophils %70.440.0 - 72.0 % 05/04/2025 5:15 AM [facility] ([facility])Lymphocytes %14.2(L)20.0 - 45.0 %05/04/2025 5:15 AM [facility] ([facility])Monocytes %14.2(H)5.0 - 12.0 %05/04/2025 5:15 AM [facility] ([facility])Eosinophils %0.50.0 - 6.0 %05/04/2025 5:15 AM [facility] ([facility])Basophils %0.20.0 - 1.0 % 05/04/2025 5:15 AM [facility] ([facility])Neutrophils Absolute4.251.60 - 7.60 10*3/uL05/04/2025 5:15 AM [facility] ([facility])Lymphocytes Absolute0.86(L)1.20 - 4.00 10*3/uL05/04/2025 5:15 AM [facility] ([facility])Monocytes Absolute0.860.10 - 1.00 10*3/uL05/04/2025 5:15 AM [facility] ([facility])Eosinophils Absolute0.030.00 - 0.50 10*3/uL05/04/2025 5:15 AM [facility] ([facility])Basophils Absolute0.010.00 - 0.20 10*3/uL 05/04/2025 5:15 AM [facility] ([facility])Rwuevrmsu437336 - 400 10*3/uL 05/04/2025 5:15 AM [facility] ([facility])nRBC %0.00 %05/04/2025 5:15 AM [facility] ([facility])Immature Granulocytes %0.50.0 - 1.0 %05/04/2025 5:15 AM [facility] ([facility])Immature Granulocytes Absolute0.030.00 - 0.20 10*3/uL05/04/2025 5:15 AM [facility] ([facility])Specimen (Source) Anatomical Location / LateralityCollection Method / VolumeCollection Time Received TimeBloodVenous blood specimen / UnknownVenipuncture / Unknown 05/04/2025 4:18 AM EDT1 4:48 AM EDT Narrative Authorizing ProviderResult TypeResult StatusAajohann MURRAY BLOOD ORDERABLES Final ResultPerforming OrganizationAddressCity/State/ZIP CodePhone Number [facility]) [address] [place] [address] * Phosphorus (05/04/2025 4:18 AM EDT)ComponentValueRef RangeTest MethodAnalysis TimePerformed AtPathologist SignaturePhosphorus3.12.5 - 5.0 mg/dL05/04/2025 5:12 AM [facility] ([facility])Specimen (Source)Anatomical Location / LateralityCollection Method / VolumeCollection TimeReceived TimeBloodVenous blood specimen / UnknownVenipuncture / Rpnrmfs8905/04/2025 4:18 AM EDT1 4:46 AM EDT Narrative Authorizing ProviderResult TypeResult StatusYolupe MURRAY BLOOD ORDERABLESFinal ResultPerforming OrganizationAddressCity/State/ZIP CodePhone Number [facility]) [address] [place] [address] * Magnesium (05/04/2025 4:18 AM EDT)ComponentValueRef RangeTest MethodAnalysis TimePerformed AtPathologist SignatureMagnesium2.01.9 - 2.7 mg/dL05/04/2025 5:12 AM [facility] ([facility])Specimen (Source)Anatomical Location / LateralityCollection Method / VolumeCollection TimeReceived TimeBloodVenous blood specimen / UnknownVenipuncture / Bkytebm9105/04/2025 4:18 AM EDT1 4:46 AM EDT Narrative Authorizing ProviderResult TypeResult StatusYolupe MURRAY BLOOD ORDERABLESFinal ResultPerforming OrganizationAddressCity/State/ZIP CodePhone Number [facility] ([facility]) [address] [place] [address] * US neck (05/03/2025 3:56 PM EDT)Anatomical RegionLateralityModalityHead, Neck UltrasoundSpecimen (Source)Anatomical Location / LateralityCollection Method / VolumeCollection TimeReceived Time05/04/2025 6:21 AM EDT Impressions 05/04/2025 6:23 AM [...] as indicated. Electronically signed: Virgilio Barillas MD. Authorizing ProviderResult TypeResult StatusOmareddy VELA US PROCEDURESFinal Result * (ABNORMAL) Body fluid culture (05/03/2025 12:59 PM EDT)ComponentValueRef Range Test MethodAnalysis TimePerformed AtPathologist SignatureCultureLight Growth Staphylococcus lugdunensis(A) FLORA 05/05/2025 7:07 AM [facility] ([facility])Comment:Gram Stain Result Moderate Polymorphonuclear ubhbiccmbk75/18/2025 7:07 AM [facility] ([facility])Gram Stain ResultNo organisms seen05/05/2025 7:07 AM [facility] ([facility])Specimen (Source)Anatomical Location / LateralityCollection Method / VolumeCollection TimeReceived TimeFluidNeck structure / UnknownNon-blood Collection / Fxsrqjm4305/03/2025 12:59 PM EDT1 1:20 PM EDT Narrative [facility] ([facility]) - 05/05/2025 7:07 AM EDT Rare Growth Skin Darlyn OrganismAntibioticMethodSusceptibilityStaphylococcus lugdunensisClindamycinMIC <=0.5 ug/ml: Susceptible Staphylococcus lugdunensisOxacillinMIC <=0.25 ug/ml: Susceptible Staphylococcus lugdunensisTetracyclineMIC <=0.5 ug/ml: Susceptible Staphylococcus lugdunensisVancomycinMIC <=0.5 ug/ml: Susceptible Authorizing ProviderResult TypeResult StatusOmar Samara MURRAY MICROBIOLOGY - GENERAL ORDERABLESFinal ResultPerforming OrganizationAddressCity/State/ZIP Code Phone Number [facility] ([facility]) [address] [place] [address] * (ABNORMAL) Basic metabolic panel (05/03/2025 3:51 AM EDT)ComponentValueRef RangeTest MethodAnalysis TimePerformed AtPathologist WtcathnbtJmattg220(L)136 - 145 mmol/L1 6:21 AM [facility] ([facility])Potassium4.13.5 - 5.1 mmol/L1 6:21 AM [facility] ([facility])Fovgfopy39(L)98 - 107 mmol/L1 6:21 AM [facility] ([facility])PB12143 - 31 mmol/L 05/03/2025 6:21 AM [facility] ([facility])DEF061 - 25 mg/dL05/03/2025 6:21 AM [facility] ([facility])Creatinine1.75(H)0.70 - 1.30 mg/dL 05/03/2025 6:21 AM [facility] ([facility])Hqehlur4417 - 100 mg/dL 05/03/2025 6:21 AM [facility] ([facility])Calcium7.3(L)8.6 - 10.3 mg/dL 05/03/2025 6:21 AM [facility] ([facility])Anion Pjk038 - 20 mmol/L 05/03/2025 6:21 AM [facility] ([facility])eGFR41.6(L)>60.0 mL/min/1.73m* 6:21 AM [facility] ([facility])Comment:[facility]???s estimated glomerular filtration rate (eGFR) will no [...] not disproportionately affect any one group of individuals.BUN/Creatinine Ratio13. 6:21 AM [facility] ([facility])Specimen (Source)Anatomical Location / LateralityCollection Method / VolumeCollection TimeReceived TimeBloodVenous blood specimen / Unknown Venipuncture / Ulljroa5605/03/2025 3:51 AM EDT1 4:14 AM EDT Narrative Authorizing ProviderResult TypeResult StatusYolupe MURRAY BLOOD ORDERABLESFinal ResultPerforming OrganizationAddressCity/State/ZIP CodePhone Number [facility] ([facility]) [address] [place] [address] * (ABNORMAL) CBC auto differential (05/03/2025 3:51 AM EDT)ComponentValueRef RangeTest MethodAnalysis TimePerformed AtPathologist SignatureAuto WBC6.224.00 - 10.60 10*3/uL05/03/2025 4:31 AM [facility] ([facility])RBC2.95(L)4.20 - 5.70 10*6/uL05/03/2025 4:31 AM [facility] ([facility])Hemoglobin9.2 (L)13.0 - 17.0 g/dL05/03/2025 4:31 AM [facility] ([facility])Hematocrit 27.4(L)39.0 - 50.0 %05/03/2025 4:31 AM [facility] ([facility])MCV92.9 82.0 - 98.0 fL05/03/2025 4:31 AM [facility] ([facility])MCH31.227.0 - 33.0 pg05/03/2025 4:31 AM [facility] ([facility])MCHC33.632.0 - 35.0 g/dL05/03/2025 4:31 AM [facility] ([facility])RDW14.911.5 - 15.0 % 05/03/2025 4:31 AM [facility] ([facility])Neutrophils %66.040.0 - 72.0 % 05/03/2025 4:31 AM [facility] ([facility])Lymphocytes %15.8(L)20.0 - 45.0 %05/03/2025 4:31 AM [facility] ([facility])Monocytes %16.1(H)5.0 - 12.0 %05/03/2025 4:31 AM [facility] ([facility])Eosinophils %0.80.0 - 6.0 %05/03/2025 4:31 AM [facility] ([facility])Basophils %0.20.0 - 1.0 % 05/03/2025 4:31 AM [facility] ([facility])Neutrophils Absolute4.111.60 - 7.60 10*3/uL05/03/2025 4:31 AM [facility] ([facility])Lymphocytes Absolute0.98(L)1.20 - 4.00 10*3/uL05/03/2025 4:31 AM [facility] ([facility])Monocytes Absolute1.000.10 - 1.00 10*3/uL05/03/2025 4:31 AM [facility] ([facility])Eosinophils Absolute0.050.00 - 0.50 10*3/uL05/03/2025 4:31 AM [facility] ([facility])Basophils Absolute0.010.00 - 0.20 10*3/uL 05/03/2025 4:31 AM [facility] ([facility])Nlkjhftfn124551 - 400 10*3/uL 05/03/2025 4:31 AM [facility] ([facility])nRBC %0.00 %05/03/2025 4:31 AM [facility] ([facility])Immature Granulocytes %1.1(H)0.0 - 1.0 % 05/03/2025 4:31 AM [facility] ([facility])Immature Granulocytes Absolute 0.070.00 - 0.20 10*3/uL05/03/2025 4:31 AM [facility] ([facility]) Specimen (Source)Anatomical Location / LateralityCollection Method / Volume Collection TimeReceived TimeBloodVenous blood specimen / UnknownVenipuncture / Sdkluyi2005/03/2025 3:51 AM EDT1 4:15 AM EDT Narrative Authorizing ProviderResult TypeResult StatusAajohann MURRAY BLOOD ORDERABLES Final ResultPerforming OrganizationAddressCity/State/ZIP CodePhone Number [facility] ([facility]) [address] [place] [address] * (ABNORMAL) Phosphorus (05/03/2025 3:51 AM EDT)ComponentValueRef RangeTest MethodAnalysis TimePerformed AtPathologist SignaturePhosphorus1.8(L)2.5 - 5.0 mg/dL05/03/2025 4:43 AM [facility] ([facility])Specimen (Source) Anatomical Location / LateralityCollection Method / VolumeCollection Time Received TimeBloodVenous blood specimen / UnknownVenipuncture / Unknown 05/03/2025 3:51 AM EDT1 4:14 AM EDT Narrative Authorizing ProviderResult TypeResult StatusDg MURRAY BLOOD ORDERABLESFinal ResultPerforming OrganizationAddressCity/State/ZIP CodePhone Number [facility] ([facility]) [address] [place] [address] * (ABNORMAL) Magnesium (05/03/2025 3:51 AM EDT)ComponentValueRef RangeTest MethodAnalysis TimePerformed AtPathologist SignatureMagnesium1.8(L)1.9 - 2.7 mg/dL05/03/2025 4:43 AM [facility] ([facility])Specimen (Source) Anatomical Location / LateralityCollection Method / VolumeCollection Time Received TimeBloodVenous blood specimen / UnknownVenipuncture / Unknown 05/03/2025 3:51 AM EDT1 4:14 AM EDT Narrative Authorizing ProviderResult TypeResult StatusYoungsoelin MURRAY BLOOD ORDERABLESFinal ResultPerforming OrganizationAddressCity/State/ZIP CodePhone Number [facility] ([facility]) [address] [place] [address] * (ABNORMAL) CBC auto differential (05/02/2025 3:13 AM EDT)ComponentValueRef RangeTest MethodAnalysis TimePerformed AtPathologist SignatureAuto WBC5.944.00 - 10.60 10*3/uL05/02/2025 3:29 AM [facility] ([facility])RBC2.63(L)4.20 - 5.70 10*6/uL05/02/2025 3:29 AM [facility] ([facility])Hemoglobin8.4 (L)13.0 - 17.0 g/dL05/02/2025 3:29 AM [facility] ([facility])Hematocrit 24.6(L)39.0 - 50.0 %05/02/2025 3:29 AM [facility] ([facility])MCV93.5 82.0 - 98.0 fL05/02/2025 3:29 AM [facility] ([facility])MCH31.927.0 - 33.0 pg05/02/2025 3:29 AM [facility] ([facility])MCHC34.132.0 - 35.0 g/dL05/02/2025 3:29 AM [facility] ([facility])RDW15.1(H)11.5 - 15.0 % 05/02/2025 3:29 AM [facility] ([facility])Neutrophils %67.040.0 - 72.0 % 05/02/2025 3:29 AM [facility] ([facility])Lymphocytes %16.0(L)20.0 - 45.0 %05/02/2025 3:29 AM [facility] ([facility])Monocytes %15.7(H)5.0 - 12.0 %05/02/2025 3:29 AM [facility] ([facility])Eosinophils %0.30.0 - 6.0 %05/02/2025 3:29 AM [facility] ([facility])Basophils %0.20.0 - 1.0 % 05/02/2025 3:29 AM [facility] ([facility])Neutrophils Absolute3.981.60 - 7.60 10*3/uL05/02/2025 3:29 AM [facility] ([facility])Lymphocytes Absolute0.95(L)1.20 - 4.00 10*3/uL05/02/2025 3:29 AM [facility] ([facility])Monocytes Absolute0.930.10 - 1.00 10*3/uL05/02/2025 3:29 AM [facility] ([facility])Eosinophils Absolute0.020.00 - 0.50 10*3/uL05/02/2025 3:29 AM [facility] ([facility])Basophils Absolute0.010.00 - 0.20 10*3/uL 05/02/2025 3:29 AM [facility] ([facility])Cmmgjhgcc708152 - 400 10*3/uL 05/02/2025 3:29 AM [facility] ([facility])nRBC %0.3(H)0 %05/02/2025 3:29 AM [facility] ([facility])Immature Granulocytes %0.80.0 - 1.0 % 05/02/2025 3:29 AM [facility] ([facility])Immature Granulocytes Absolute 0.050.00 - 0.20 10*3/uL05/02/2025 3:29 AM [facility] ([facility]) Specimen (Source)Anatomical Location / LateralityCollection Method / Volume Collection TimeReceived TimeBloodVenous blood specimen / UnknownArterial Line / Khstsen4905/02/2025 3:13 AM EDT1 3:22 AM EDT Narrative Authorizing ProviderResult TypeResult StatusAajohann Anthony [facility] BLOOD ORDERABLES Final ResultPerforming OrganizationAddressCity/State/ZIP CodePhone Number [facility]) [address] [place] [address] * Phosphorus (05/02/2025 3:13 AM EDT)ComponentValueRef RangeTest MethodAnalysis TimePerformed AtPathologist SignaturePhosphorus2.52.5 - 5.0 mg/dL05/02/2025 4:00 AM [facility] ([facility])Specimen (Source)Anatomical Location / LateralityCollection Method / VolumeCollection TimeReceived TimeBloodArterial blood specimen / UnknownArterial Puncture / Dlciann8305/02/2025 3:13 AM EDT 05/02/2025 3:19 AM EDT Narrative Authorizing ProviderResult TypeResult StatusDg Power MEPAULETTE BLOOD ORDERABLESFinal ResultPerforming OrganizationAddressCity/State/ZIP CodePhone Number [facility]) [address] [place] [address] * (ABNORMAL) Magnesium (05/02/2025 3:13 AM EDT)ComponentValueRef RangeTest MethodAnalysis TimePerformed AtPathologist SignatureMagnesium1.8(L)1.9 - 2.7 mg/dL05/02/2025 4:00 AM [facility])Specimen (Source) Anatomical Location / LateralityCollection Method / VolumeCollection Time Received TimeBloodArterial blood specimen / UnknownArterial Puncture / Unknown 05/02/2025 3:13 AM EDT1 3:19 AM EDT Narrative Authorizing ProviderResult TypeResult StatusYoungsoelin MURRAY BLOOD ORDERABLESFinal ResultPerforming OrganizationAddressCity/State/ZIP CodePhone Number [facility] ([facility]) [address] [place] [address] * (ABNORMAL) Comprehensive metabolic panel (05/02/2025 3:13 AM EDT)Component ValueRef RangeTest MethodAnalysis TimePerformed AtPathologist SignatureSodium 133(L)136 - 145 mmol/L1 4:00 AM [facility] ([facility]) Potassium3.1(L)3.5 - 5.1 mmol/L1 4:00 AM [facility] ([facility])Awxybaou97(L)98 - 107 mmol/L1 4:00 AM [facility] ([facility])CO233(H)21 - 31 mmol/L1 4:00 AM [facility] ([facility]) Anion Den275 - 20 mmol/L1 4:00 AM [facility] ([facility])XYC951 - 25 mg/dL05/02/2025 4:00 AM [facility] ([facility])Creatinine1.69(H) 0.70 - 1.30 mg/dL05/02/2025 4:00 AM [facility] ([facility]) BUN/Creatinine Ratio11.81 4:00 AM [facility] ([facility]) Bchlnbt969(H)70 - 100 mg/dL05/02/2025 4:00 AM [facility] ([facility]) Calcium7.3(L)8.6 - 10.3 mg/dL05/02/2025 4:00 AM [facility] ([facility]) AST54(H)13 - 39 U/L1 4:00 AM [facility] ([facility])ALT (SGPT) 129(H)7 - 52 U/L1 4:00 AM [facility] ([facility])Alkaline Nnebqtmjbut5919 - 104 U/L1 4:00 AM [facility] ([facility])Total Protein5.4(L)6.0 - 8.3 g/dL05/02/2025 4:00 AM [facility] ([facility]) Albumin3.1(L)3.5 - 5.7 g/dL05/02/2025 4:00 AM [facility] ([facility]) Total Bilirubin0.70.3 - 1.0 mg/dL05/02/2025 4:00 AM [facility] ([facility])eGFR43.4(L)>60.0 mL/min/1.73m* 4:00 AM [facility] ([facility])Comment:[facility]???s estimated glomerular filtration rate (eGFR) will no [...] not disproportionately affect any one group of individuals.Specimen (Source) Anatomical Location / LateralityCollection Method / VolumeCollection Time Received TimeBloodArterial blood specimen / UnknownArterial Puncture / Unknown 05/02/2025 3:13 AM EDT1 3:19 AM EDT Narrative Authorizing ProviderResult TypeResult StatusAadil Raj MEPAULETTE BLOOD ORDERABLES Final ResultPerforming OrganizationAddressCity/State/ZIP CodePhone Number [facility] ([facility]) [address] [place] [address] * (ABNORMAL) Phosphorus (05/01/2025 8:30 AM EDT)ComponentValueRef RangeTest MethodAnalysis TimePerformed AtPathologist SignaturePhosphorus2.4(L)2.5 - 5.0 mg/dL05/01/2025 9:13 AM [facility] ([facility])Specimen (Source) Anatomical Location / LateralityCollection Method / VolumeCollection Time Received TimeBloodArterial blood specimen / UnknownArterial Puncture / Unknown 05/01/2025 8:30 AM EDT1 8:40 AM EDT Narrative Authorizing ProviderResult TypeResult StatusAajohann Anthony MDLAB BLOOD ORDERABLES Final ResultPerforming OrganizationAddressCity/State/ZIP CodePhone Number [facility] [facility]) [address] [place] [address] * Magnesium (05/01/2025 8:30 AM EDT)ComponentValueRef RangeTest MethodAnalysis TimePerformed AtPathologist SignatureMagnesium1.91.9 - 2.7 mg/dL05/01/2025 9:13 AM [facility] ([facility])Specimen (Source)Anatomical Location / LateralityCollection Method / VolumeCollection TimeReceived TimeBloodArterial blood specimen / UnknownArterial Puncture / Pxzmbpl9905/01/2025 8:30 AM EDT 05/01/2025 8:40 AM EDT Narrative Authorizing ProviderResult TypeResult StatusAadienid MURRAY BLOOD ORDERABLES Final ResultPerforming OrganizationAddressCity/State/ZIP CodePhone Number [facility] ([facility]) [address] [place] [address] * (ABNORMAL) Basic metabolic panel (05/01/2025 8:30 AM EDT)ComponentValueRef RangeTest MethodAnalysis TimePerformed AtPathologist NsljgebpaVurovw700945 - 145 mmol/L1 9:13 AM [facility] ([facility])Potassium3.93.5 - 5.1 mmol/L1 9:13 AM [facility] ([facility])Cbgjpevd34(L)98 - 107 mmol/L1 9:13 AM [facility] ([facility])CO235(H)21 - 31 mmol/L1 9:13 AM [facility] ([facility])XGO601 - 25 mg/dL 05/01/2025 9:13 AM [facility] ([facility])Creatinine1.010.70 - 1.30 mg/dL05/01/2025 9:13 AM [facility] ([facility])Wddljxl1234 - 100 mg/dL 05/01/2025 9:13 AM [facility] ([facility])Calcium7.7(L)8.6 - 10.3 mg/dL 05/01/2025 9:13 AM [facility] ([facility])Anion Gap97 - 20 mmol/L 05/01/2025 9:13 AM [facility] ([facility])eGFR80.5>60.0 mL/min/1.73m*2 05/01/2025 9:13 AM [facility] ([facility])Comment:[facility]???s estimated glomerular filtration rate (eGFR) will no [...] not disproportionately affect any one group of individuals.BUN/Creatinine Ratio10.91 9:13 AM [facility] ([facility])Specimen (Source)Anatomical Location / LateralityCollection Method / VolumeCollection TimeReceived TimeBloodArterial blood specimen / Unknown Arterial Puncture / Iseygtd6105/01/2025 8:30 AM EDT1 8:40 AM EDT Narrative Authorizing ProviderResult TypeResult StatusAadil Raj MURRAY BLOOD ORDERABLES Final ResultPerforming OrganizationAddressCity/State/ZIP CodePhone Number [facility] ([facility]) [address] [place] [address] * Phosphorus (05/01/2025 3:05 AM EDT)ComponentValueRef RangeTest MethodAnalysis TimePerformed AtPathologist SignaturePhosphorus2.62.5 - 5.0 mg/dL05/01/2025 4:05 AM [facility] ([facility])Specimen (Source)Anatomical Location / LateralityCollection Method / VolumeCollection TimeReceived TimeBloodArterial blood specimen / UnknownArterial Puncture / Wumzyou3205/01/2025 3:05 AM EDT 05/01/2025 3:21 AM EDT Narrative Authorizing ProviderResult TypeResult StatusDg MURRAY BLOOD ORDERABLESFinal ResultPerforming OrganizationAddressCity/State/ZIP CodePhone Number [facility] ([facility]) [address] [place] [address] * Magnesium (05/01/2025 3:05 AM EDT)ComponentValueRef RangeTest MethodAnalysis TimePerformed AtPathologist SignatureMagnesium2.01.9 - 2.7 mg/dL05/01/2025 4:05 AM [facility] ([facility])Specimen (Source)Anatomical Location / LateralityCollection Method / VolumeCollection TimeReceived TimeBloodArterial blood specimen / UnknownArterial Puncture / Mngtcrj8905/01/2025 3:05 AM EDT 05/01/2025 3:21 AM EDT Narrative Authorizing ProviderResult TypeResult StatusDg MURRAY BLOOD ORDERABLESFinal ResultPerforming OrganizationAddressCity/State/ZIP CodePhone Number [facility] ([facility]) [address] [place] [address] * (ABNORMAL) CBC auto differential (05/01/2025 3:05 AM EDT)ComponentValueRef RangeTest MethodAnalysis TimePerformed AtPathologist SignatureAuto WBC7.394.00 - 10.60 10*3/uL05/01/2025 3:28 AM [facility] ([facility])RBC2.67(L)4.20 - 5.70 10*6/uL05/01/2025 3:28 AM [facility] ([facility])Hemoglobin8.6 (L)13.0 - 17.0 g/dL05/01/2025 3:28 AM [facility] ([facility])Hematocrit 25.1(L)39.0 - 50.0 %05/01/2025 3:28 AM [facility] ([facility])MCV94.0 82.0 - 98.0 fL05/01/2025 3:28 AM [facility] ([facility])MCH32.227.0 - 33.0 pg05/01/2025 3:28 AM [facility] ([facility])MCHC34.332.0 - 35.0 g/dL05/01/2025 3:28 AM [facility] ([facility])RDW14.711.5 - 15.0 % 05/01/2025 3:28 AM [facility] ([facility])Neutrophils %79.9(H)40.0 - 72.0 %05/01/2025 3:28 AM [facility] ([facility])Lymphocytes %6.8(L)20.0 - 45.0 %05/01/2025 3:28 AM [facility] ([facility])Monocytes %12.3(H)5.0 - 12.0 %05/01/2025 3:28 AM [facility] ([facility])Eosinophils %0.00.0 - 6.0 %05/01/2025 3:28 AM [facility] ([facility])Basophils %0.10.0 - 1.0 % 05/01/2025 3:28 AM [facility] ([facility])Neutrophils Absolute5.901.60 - 7.60 10*3/uL05/01/2025 3:28 AM [facility] ([facility])Lymphocytes Absolute0.50(L)1.20 - 4.00 10*3/uL05/01/2025 3:28 AM [facility] ([facility])Monocytes Absolute0.910.10 - 1.00 10*3/uL05/01/2025 3:28 AM [facility] ([facility])Eosinophils Absolute0.000.00 - 0.50 10*3/uL05/01/2025 3:28 AM [facility] ([facility])Basophils Absolute0.010.00 - 0.20 10*3/uL 05/01/2025 3:28 AM [facility] ([facility])Gahcyhxti560451 - 400 10*3/uL 05/01/2025 3:28 AM [facility] ([facility])nRBC %1.1(H)0 %05/01/2025 3:28 AM [facility] ([facility])Immature Granulocytes %0.90.0 - 1.0 % 05/01/2025 3:28 AM [facility] ([facility])Immature Granulocytes Absolute 0.070.00 - 0.20 10*3/uL05/01/2025 3:28 AM [facility] ([facility]) Specimen (Source)Anatomical Location / LateralityCollection Method / Volume Collection TimeReceived TimeBloodVenous blood specimen / UnknownArterial Line / Dtbqoow7705/01/2025 3:05 AM EDT1 3:21 AM EDT Narrative Authorizing ProviderResult TypeResult StatusAadil Raj MURRAY BLOOD ORDERABLES Final ResultPerforming OrganizationAddressCity/State/ZIP CodePhone Number [facility] ([facility]) [address] [place] [address] * (ABNORMAL) Comprehensive metabolic panel (05/01/2025 3:05 AM EDT)Component ValueRef RangeTest MethodAnalysis TimePerformed AtPathologist SignatureSodium 135(L)136 - 145 mmol/L1 3:46 AM [facility] ([facility]) Potassium3.73.5 - 5.1 mmol/L1 3:46 AM [facility] ([facility]) Giiobcfr49(L)98 - 107 mmol/L1 3:46 AM [facility] ([facility]) CO235(H)21 - 31 mmol/L1 3:46 AM [facility] ([facility])Anion Vrm899 - 20 mmol/L1 3:46 AM [facility] ([facility])XOR631 - 25 mg/dL05/01/2025 3:46 AM [facility] ([facility])Creatinine1.040.70 - 1.30 mg/dL05/01/2025 3:46 AM [facility] ([facility])BUN/Creatinine Ratio11.5 05/01/2025 3:46 AM [facility] ([facility])Ahzzhrs631(H)70 - 100 mg/dL 05/01/2025 3:46 AM [facility] ([facility])Calcium7.9(L)8.6 - 10.3 mg/dL 05/01/2025 3:46 AM [facility] ([facility])AST86(H)13 - 39 U/L1 3:46 AM [facility] ([facility])ALT (SGPT)182(H)7 - 52 U/L1 3:46 AM [facility] ([facility])Alkaline Dbjbqpmnqcj5044 - 104 U/L1 3:46 AM [facility] ([facility])Total Protein5.9(L)6.0 - 8.3 g/dL 05/01/2025 3:46 AM [facility] ([facility])Albumin3.4(L)3.5 - 5.7 g/dL 05/01/2025 3:46 AM [facility] ([facility])Total Bilirubin0.90.3 - 1.0 mg/dL05/01/2025 3:46 AM [facility] ([facility])eGFR77.7>60.0 mL/min/1.73m* 3:46 AM [facility] ([facility])Comment:[facility]???s estimated glomerular filtration rate (eGFR) will no [...] not disproportionately affect any one group of individuals.Specimen (Source)Anatomical Location / LateralityCollection Method / VolumeCollection TimeReceived TimeBloodArterial blood specimen / UnknownArterial Puncture / Lascxas9405/01/2025 3:05 AM EDT1 3:21 AM EDT Narrative Authorizing ProviderResult TypeResult StatusAadil Raj MDLAB BLOOD ORDERABLES Final ResultPerforming OrganizationAddressCity/State/ZIP CodePhone Number [facility]) [address] [place] [address] * Phosphorus (05/01/2025 12:47 AM EDT)ComponentValueRef RangeTest MethodAnalysis TimePerformed AtPathologist SignaturePhosphorus2.72.5 - 5.0 mg/dL05/01/2025 1:22 AM [facility])Specimen (Source)Anatomical Location / LateralityCollection Method / VolumeCollection TimeReceived TimeBloodArterial blood specimen / UnknownArterial Puncture / Wgmmgsl3105/01/2025 12:47 AM EDT 05/01/2025 12:59 AM EDT Narrative Authorizing ProviderResult TypeResult StatusAajohann Anthony MDLAB BLOOD ORDERABLES Final ResultPerforming OrganizationAddressCity/State/ZIP CodePhone Number [facility]) [address] [place] [address] * Magnesium (05/01/2025 12:47 AM EDT)ComponentValueRef RangeTest MethodAnalysis TimePerformed AtPathologist SignatureMagnesium2.11.9 - 2.7 mg/dL05/01/2025 1:22 AM [facility])Specimen (Source)Anatomical Location / LateralityCollection Method / VolumeCollection TimeReceived TimeBloodArterial blood specimen / UnknownArterial Puncture / Ndafzhc1905/01/2025 12:47 AM EDT 05/01/2025 12:59 AM EDT Narrative Authorizing ProviderResult TypeResult StatusPepe Anthony MDLAB BLOOD ORDERABLES Final ResultPerforming OrganizationAddressCity/State/ZIP CodePhone Number [facility]) [address] [place] [address] * (ABNORMAL) Basic metabolic panel (05/01/2025 12:47 AM EDT)ComponentValueRef RangeTest MethodAnalysis TimePerformed AtPathologist EkriqgqhrYxwczc580600 - 145 mmol/L1 1:22 AM [facility])Potassium3.83.5 - 5.1 mmol/L1 1:22 AM [facility] ([facility])Wdljgiec19(L)98 - 107 mmol/L1 1:22 AM [facility] ([facility])CO235(H)21 - 31 mmol/L1 1:22 AM [facility] ([facility])WLF064 - 25 mg/dL 05/01/2025 1:22 AM [facility] ([facility])Creatinine1.210.70 - 1.30 mg/dL05/01/2025 1:22 AM [facility] ([facility])Grpzjof034(H)70 - 100 mg/dL05/01/2025 1:22 AM [facility] ([facility])Calcium7.8(L)8.6 - 10.3 mg/dL05/01/2025 1:22 AM [facility] ([facility])Anion Vdb424 - 20 mmol/L 05/01/2025 1:22 AM [facility] ([facility])eGFR64.8>60.0 mL/min/1.73m*2 05/01/2025 1:22 AM [facility] ([facility])Comment:[facility]???s estimated glomerular filtration rate (eGFR) will no [...] not disproportionately affect any one group of individuals.BUN/Creatinine Ratio. 1:22 AM [facility] ([facility])Specimen (Source)Anatomical Location / LateralityCollection Method / VolumeCollection TimeReceived TimeBloodArterial blood specimen / Unknown Arterial Puncture / Sikbveo2305/01/2025 12:47 AM EDT1 12:59 AM EDT Narrative Authorizing ProviderResult TypeResult StatusAadil Raj MURRAY BLOOD ORDERABLES Final ResultPerforming OrganizationAddressCity/State/ZIP CodePhone Number [facility] ([facility]) [address] [place] [address] * (ABNORMAL) Phosphorus (04/30/2025 8:12 PM EDT)ComponentValueRef RangeTest MethodAnalysis TimePerformed AtPathologist SignaturePhosphorus2.2(L)2.5 - 5.0 mg/dL04/30/2025 8:[facility])Specimen (Source) Anatomical Location / LateralityCollection Method / VolumeCollection Time Received TimeBloodArterial blood specimen / UnknownArterial Puncture / Unknown 04/30/2025 8:12 PM EDT1 8:18 PM EDT Narrative Authorizing ProviderResult TypeResult StatusAadienid Anthony MDLAB BLOOD ORDERABLES Final ResultPerforming OrganizationAddressCity/State/ZIP CodePhone Number [facility]) [address] [place] [address] * (ABNORMAL) Magnesium (04/30/2025 8:12 PM EDT)ComponentValueRef RangeTest MethodAnalysis TimePerformed AtPathologist SignatureMagnesium1.8(L)1.9 - 2.7 mg/dL04/30/2025 8:46 PM [facility])Specimen (Source) Anatomical Location / LateralityCollection Method / VolumeCollection Time Received TimeBloodArterial blood specimen / UnknownArterial Puncture / Unknown 04/30/2025 8:12 PM EDT1 8:18 PM EDT Narrative Authorizing ProviderResult TypeResult StatusAadienid MURRAY BLOOD ORDERABLES Final ResultPerforming OrganizationAddressCity/State/ZIP CodePhone Number [facility]) [address], [place] [phone] * (ABNORMAL) Basic metabolic panel (04/30/2025 8:12 PM EDT)ComponentValueRef RangeTest MethodAnalysis TimePerformed AtPathologist MbgrciyzdBkpdtm769(L)136 - 145 mmol/L1 8:46 PM [facility]TD[facility])Potassium3.53.5 - 5.1 mmol/L1 8:46 PM [facility] ([facility])Ssqucocc98(L)98 - 107 mmol/L1 8:46 PM [facility] ([facility])CO234(H)21 - 31 mmol/L1 8:46 PM [facility] ([facility])VKA028 - 25 mg/dL 04/30/2025 8:46 PM [facility] ([facility])Creatinine1.190.70 - 1.30 mg/dL04/30/2025 8:46 PM [facility] ([facility])Unimsnu925(H)70 - 100 mg/dL04/30/2025 8:46 PM [facility] ([facility])Calcium7.9(L)8.6 - 10.3 mg/dL04/30/2025 8:46 PM [facility] ([facility])Anion Plh602 - 20 mmol/L 04/30/2025 8:46 PM [facility] ([facility])eGFR66.1>60.0 mL/min/1.73m*2 04/30/2025 8:46 PM [facility] ([facility])Comment:[facility]???s estimated glomerular filtration rate (eGFR) will no [...] not disproportionately affect any one group of individuals.BUN/Creatinine Ratio11.81 8:46 PM [facility] ([facility])Specimen (Source)Anatomical Location / LateralityCollection Method / VolumeCollection TimeReceived TimeBloodArterial blood specimen / Unknown Arterial Puncture / Calhrsb3704/30/2025 8:12 PM EDT1 8:18 PM EDT Narrative Authorizing ProviderResult TypeResult StatusAadil Raj MDLAB BLOOD ORDERABLES Final ResultPerforming OrganizationAddressCity/State/ZIP CodePhone Number [facility]) [address] [place] [phone] * (ABNORMAL) Phosphorus (04/30/2025 3:22 PM EDT)ComponentValueRef RangeTest MethodAnalysis TimePerformed AtPathologist SignaturePhosphorus2.3(L)2.5 - 5.0 mg/dL04/30/2025 4:00 PM EDNEW [facility] ([facility])Specimen (Source) Anatomical Location / LateralityCollection Method / VolumeCollection Time Received TimeBloodBlood sample taken from central line / UnknownArterial Puncture / Wpbxxfv4704/30/2025 3:22 PM EDT1 3:33 PM EDT Narrative Authorizing ProviderResult TypeResult StatusAadil Raj MDLAB BLOOD ORDERABLES Final ResultPerforming OrganizationAddressCity/State/ZIP CodePhone Number [facility]) [address] [place] [phone] * Magnesium (04/30/2025 3:22 PM EDT)ComponentValueRef RangeTest MethodAnalysis TimePerformed AtPathologist SignatureMagnesium1.91.9 - 2.7 mg/dL04/30/2025 4:00 PM [facility])Specimen (Source)Anatomical Location / LateralityCollection Method / VolumeCollection TimeReceived TimeBloodBlood sample taken from central line / UnknownArterial Puncture / Mpxgbqc3204/30/2025 3:22 PM EDT1 3:33 PM EDT Narrative Authorizing ProviderResult TypeResult StatusAadil Raj MDLAB BLOOD ORDERABLES Final ResultPerforming OrganizationAddressCity/State/ZIP CodePhone Number [facility]) [address] [place] [phone] * (ABNORMAL) Basic metabolic panel (04/30/2025 3:22 PM EDT)ComponentValueRef RangeTest MethodAnalysis TimePerformed AtPathologist NhaqjjpcaMtnstg272(L)136 - 145 mmol/L1 4:00 PM [facility] ([facility])Potassium3.73.5 - 5.1 mmol/L1 4:00 PM [facility] ([facility])Ennaneye77(L)98 - 107 mmol/L1 4:00 PM [facility] ([facility])CO234(H)21 - 31 mmol/L1 4:00 PM [facility] ([facility])ZXJ750 - 25 mg/dL 04/30/2025 4:00 PM [facility] ([facility])Creatinine1.220.70 - 1.30 mg/dL04/30/2025 4:00 PM [facility] ([facility])Xjzbvrn409(H)70 - 100 mg/dL04/30/2025 4:00 PM [facility] ([facility])Calcium7.7(L)8.6 - 10.3 mg/dL04/30/2025 4:00 PM [facility] ([facility])Anion Vkv811 - 20 mmol/L 04/30/2025 4:00 PM [facility] ([facility])eGFR64.2>60.0 mL/min/1.73m*2 04/30/2025 4:00 PM [facility] ([facility])Comment:[facility]???s estimated glomerular filtration rate (eGFR) will no [...] not disproportionately affect any one group of individuals.BUN/Creatinine Ratio12.310 4:00 PM [facility] ([facility])Specimen (Source)Anatomical Location / LateralityCollection Method / VolumeCollection TimeReceived TimeBloodBlood sample taken from central line / UnknownArterial Puncture / Bfdvrzr7204/30/2025 3:22 PM EDT1 3:33 PM EDT Narrative Authorizing ProviderResult TypeResult StatusAajohann Anthony MDLAB BLOOD ORDERABLES Final ResultPerforming OrganizationAddressCity/State/ZIP CodePhone Number [facility] ([facility]) [address] [place] [address] * (ABNORMAL) Phosphorus (04/30/2025 11:13 AM EDT)ComponentValueRef RangeTest MethodAnalysis TimePerformed AtPathologist SignaturePhosphorus1.7(L)2.5 - 5.0 mg/dL04/30/2025 12:11 PM ED[facility])Specimen (Source) Anatomical Location / LateralityCollection Method / VolumeCollection Time Received TimeBloodArterial blood specimen / UnknownArterial Puncture / Unknown 04/30/2025 11:13 AM EDT1 11:32 AM EDT Narrative Authorizing ProviderResult TypeResult StatusAadienid Anthony MDLAB BLOOD ORDERABLES Final ResultPerforming OrganizationAddressCity/State/ZIP CodePhone Number [facility] ([facility]) [address] [place] [address] * Magnesium (04/30/2025 11:13 AM EDT)ComponentValueRef RangeTest MethodAnalysis TimePerformed AtPathologist SignatureMagnesium1.91.9 - 2.7 mg/dL04/30/2025 12:11 PM [facility] ([facility])Specimen (Source)Anatomical Location / LateralityCollection Method / VolumeCollection TimeReceived TimeBloodArterial blood specimen / UnknownArterial Puncture / Uketrnt8304/30/2025 11:13 AM EDT 04/30/2025 11:32 AM EDT Narrative Authorizing ProviderResult TypeResult StatusAajohann Anthony MDLAB BLOOD ORDERABLES Final ResultPerforming OrganizationAddressCity/State/ZIP CodePhone Number [facility] ([facility]) [address] [place] [address] * (ABNORMAL) Basic metabolic panel (04/30/2025 11:13 AM EDT)ComponentValueRef RangeTest MethodAnalysis TimePerformed AtPathologist GjoxiqxxfVnbpgh986(L)136 - 145 mmol/L1 12:11 PM [facility] ([facility])Potassium3.83.5 - 5.1 mmol/L1 12:11 PM [facility] ([facility])Tvtvmjcw69(L)98 - 107 mmol/L1 12:11 PM [facility] ([facility])CO235(H)21 - 31 mmol/L1 12:11 PM [facility] ([facility])JSG475 - 25 mg/dL 04/30/2025 12:11 [facility] ([facility])Creatinine1.270.70 - 1.30 mg/dL04/30/2025 12:11 PM [facility] ([facility])Pbsyjql103(H)70 - 100 mg/dL04/30/2025 12:11 [facility] ([facility])Calcium7.6(L)8.6 - 10.3 mg/dL04/30/2025 12:11 [facility] ([facility])Anion Gap87 - 20 mmol/L 04/30/2025 12:11 [facility] ([facility])eGFR61.2>60.0 mL/min/1.73m*2 04/30/2025 12:11 [facility] ([facility])Comment:[facility]???s estimated glomerular filtration rate (eGFR) will no [...] not disproportionately affect any one group of individuals.BUN/Creatinine Ratio12. 12:11 PM [facility] ([facility])Specimen (Source)Anatomical Location / LateralityCollection Method / VolumeCollection TimeReceived TimeBloodArterial blood specimen / Unknown Arterial Puncture / Xllzzzu2204/30/2025 11:13 AM EDT1 11:32 AM EDT Narrative Authorizing ProviderResult TypeResult StatusAadienid MURRAY BLOOD ORDERABLES Final ResultPerforming OrganizationAddressCity/State/ZIP CodePhone Number [facility] ([facility]) [address] [place] [address] * LIMITED ECHOCARDIOGRAM (TTE) W/ LTD DOPPLER AND COLOR FLOW (04/30/2025 8:35 AM EDT)Anatomical RegionLateralityModalityOtherSpecimen (Source)Anatomical Location / LateralityCollection Method / VolumeCollection TimeReceived Time 04/30/2025 7:02 AM EDT Narrative 04/30/2025 11:22 AM EDT 1 1 [facility] [address] [place] [address] [phone] (fax) Echocardiogram-[facility] Name: KRISTY DOHERTY Study Date: 04/30/2025 07:02 AM B/P: 121 mmHg/100 mmHg HR: 87 bpm Date of : 1955 Location: [facility] [...] with the fellow Procedure Staff Reading Group: [facility] Referring Physician: RUDY KING ??Gas Inspector: June Brumfield RDCS, RVT, RN, BSN ??Ordering Physician: Wil Sotomayor MD Wall Motion Scores -1 - hyperkinesia, 0 - not evaluated, 1 - normal, 2 - hypokinesia, 3 - akinesia, 4 - dyskinesia Procedure Note Hay William MD - 04/30/2025 1 1 [facility] Heart Station [address] [place] [address] [phone] (fax) Echocardiogram-[facility] Name: KRISTY DOHERTY Study Date: 04/30/2025 07:02 AM B/P: 121 mmHg/100 mmHg HR: 87 bpm Date of : 1955 Location: [facility] [...] with the fellow Procedure Staff Reading Group: [facility] Referring Physician: RUDY KING Gas Inspector: June Brumfield, DANIELECS, RVT, RN, BSN Ordering Physician: Wil Sotomayor MD Wall Motion Scores -1 - hyperkinesia, 0 - not evaluated, 1 - normal, 2 - hypokinesia, 3 - akinesia, 4 - dyskinesia Authorizing ProviderResult TypeResult StatusWil Sotomayor [facility] ECHO PROCEDURES Final Result * (ABNORMAL) Phosphorus (04/30/2025 7:48 AM EDT)ComponentValueRef RangeTest MethodAnalysis TimePerformed AtPathologist SignaturePhosphorus1.8(L)2.5 - 5.0 mg/dL04/30/2025 10:07 AM [facility] ([facility])Specimen (Source) Anatomical Location / LateralityCollection Method / VolumeCollection Time Received TimeBloodVenous blood specimen / UnknownArterial Puncture / Unknown 04/30/2025 7:48 AM EDT1 8:12 AM EDT Narrative Authorizing ProviderResult TypeResult StatusAajohann MURRAY BLOOD ORDERABLES Final ResultPerforming OrganizationAddressCity/State/ZIP CodePhone Number [facility] ([facility]) [address], [place] [id number] * Magnesium (04/30/2025 7:48 AM EDT)ComponentValueRef RangeTest MethodAnalysis TimePerformed AtPathologist SignatureMagnesium2.01.9 - 2.7 mg/dL04/30/2025 10:07 AM [facility] ([facility])Specimen (Source)Anatomical Location / LateralityCollection Method / VolumeCollection TimeReceived TimeBloodVenous blood specimen / UnknownArterial Puncture / Dhcjsvb9504/30/2025 7:48 AM EDT 04/30/2025 8:12 AM EDT Narrative Authorizing ProviderResult TypeResult StatusAajohann MURRAY BLOOD ORDERABLES Final ResultPerforming OrganizationAddressCity/State/ZIP CodePhone Number [facility] ([facility]) [address] [place] [address] * (ABNORMAL) Basic metabolic panel (04/30/2025 7:48 AM EDT)ComponentValueRef RangeTest MethodAnalysis TimePerformed AtPathologist VzdjajccyZjcyjb299(L)136 - 145 mmol/L1 10:07 AM [facility] ([facility])Potassium3.73.5 - 5.1 mmol/L1 10:07 AM [facility] ([facility])Edkzgfht22(L)98 - 107 mmol/L1 10:07 AM [facility] ([facility])CO235(H)21 - 31 mmol/L1 10:07 AM [facility] ([facility])WAY766 - 25 mg/dL 04/30/2025 10:07 AM [facility] ([facility])Creatinine1.290.70 - 1.30 mg/dL04/30/2025 10:07 AM [facility] ([facility])Jfdrgli7311 - 100 mg/dL 04/30/2025 10:07 AM [facility] ([facility])Calcium8.0(L)8.6 - 10.3 mg/dL 04/30/2025 10:07 AM [facility] ([facility])Anion Gap97 - 20 mmol/L 04/30/2025 10:07 AM [facility] ([facility])eGFR60.0(L)>60.0 mL/min/1.73m* 10:07 AM [facility] ([facility])Comment:[facility]???s estimated glomerular filtration rate (eGFR) will no [...] not disproportionately affect any one group of individuals.BUN/Creatinine Ratio12.410 10:07 AM [facility] ([facility])Specimen (Source)Anatomical Location / LateralityCollection Method / VolumeCollection TimeReceived TimeBloodVenous blood specimen / Unknown Arterial Puncture / Xclethl6204/30/2025 7:48 AM EDT1 8:12 AM EDT Narrative Authorizing ProviderResult TypeResult StatusAadil Raj MURRAY BLOOD ORDERABLES Final ResultPerforming OrganizationAddressCity/State/ZIP CodePhone Number [facility] ([facility]) [address] [place] [address] * (ABNORMAL) CBC auto differential (04/30/2025 4:10 AM EDT)ComponentValueRef RangeTest MethodAnalysis TimePerformed AtPathologist SignatureAuto WBC8.774.00 - 10.60 10*3/uL04/30/2025 4:33 AM [facility] ([facility])RBC2.58(L)4.20 - 5.70 10*6/uL04/30/2025 4:33 AM [facility] ([facility])Hemoglobin8.2 (L)13.0 - 17.0 g/dL04/30/2025 4:33 AM [facility] ([facility])Hematocrit 23.9(L)39.0 - 50.0 %04/30/2025 4:33 AM [facility] ([facility])MCV92.6 82.0 - 98.0 fL04/30/2025 4:33 AM [facility] ([facility])MCH31.827.0 - 33.0 pg04/30/2025 4:33 AM [facility] ([facility])MCHC34.332.0 - 35.0 g/dL04/30/2025 4:33 AM [facility] ([facility])RDW14.711.5 - 15.0 % 04/30/2025 4:33 AM [facility] ([facility])Neutrophils %81.5(H)40.0 - 72.0 %04/30/2025 4:33 AM [facility] ([facility])Lymphocytes %7.8(L)20.0 - 45.0 %04/30/2025 4:33 AM [facility] ([facility])Monocytes %9.95.0 - 12.0 %04/30/2025 4:33 AM [facility] ([facility])Eosinophils %0.10.0 - 6.0 %04/30/2025 4:33 AM [facility] ([facility])Basophils %0.10.0 - 1.0 % 04/30/2025 4:33 AM [facility] ([facility])Neutrophils Absolute7.151.60 - 7.60 10*3/uL04/30/2025 4:33 AM [facility] ([facility])Lymphocytes Absolute0.68(L)1.20 - 4.00 10*3/uL04/30/2025 4:33 AM [facility] ([facility])Monocytes Absolute0.870.10 - 1.00 10*3/uL04/30/2025 4:33 AM [facility] ([facility])Eosinophils Absolute0.010.00 - 0.50 10*3/uL04/30/2025 4:33 AM [facility] ([facility])Basophils Absolute0.010.00 - 0.20 10*3/uL 04/30/2025 4:33 AM [facility] ([facility])Acxizfyxf787(L)150 - 400 10*3/uL04/30/2025 4:33 AM [facility] ([facility])nRBC %1.1(H)0 % 04/30/2025 4:33 AM [facility] ([facility])Immature Granulocytes %0.60.0 - 1.0 %04/30/2025 4:33 AM [facility])Immature Granulocytes Absolute0.050.00 - 0.20 10*3/uL04/30/2025 4:33 AM [facility])Specimen (Source)Anatomical Location / LateralityCollection Method / VolumeCollection TimeReceived TimeBloodVenous blood specimen / UnknownArterial Line / Xvlpshl1304/30/2025 4:10 AM EDT1 4:23 AM EDT Narrative Authorizing ProviderResult TypeResult StatusAajohann Anthony MDLAB BLOOD ORDERABLES Final ResultPerforming OrganizationAddressCity/State/ZIP CodePhone Number [facility] ([facility]) [address] [place] [address] * (ABNORMAL) Phosphorus (04/30/2025 4:10 AM EDT)ComponentValueRef RangeTest MethodAnalysis TimePerformed AtPathologist SignaturePhosphorus1.8(L)2.5 - 5.0 mg/dL04/30/2025 4:51 AM [facility] ([facility])Specimen (Source) Anatomical Location / LateralityCollection Method / VolumeCollection Time Received TimeBloodArterial blood specimen / UnknownArterial Puncture / Unknown 04/30/2025 4:10 AM EDT1 4:23 AM EDT Narrative Authorizing ProviderResult TypeResult StatusAadienid Anthony MDLAB BLOOD ORDERABLES Final ResultPerforming OrganizationAddressCity/State/ZIP CodePhone Number [facility]) [address] [place] [address] * Magnesium (04/30/2025 4:10 AM EDT)ComponentValueRef RangeTest MethodAnalysis TimePerformed AtPathologist SignatureMagnesium2.01.9 - 2.7 mg/dL04/30/2025 4:51 AM [facility] ([facility])Specimen (Source)Anatomical Location / LateralityCollection Method / VolumeCollection TimeReceived TimeBloodArterial blood specimen / UnknownArterial Puncture / Xmbmjjf9804/30/2025 4:10 AM EDT 04/30/2025 4:23 AM EDT Narrative Authorizing ProviderResult TypeResult StatusAadienid Anthony MDLAB BLOOD ORDERABLES Final ResultPerforming OrganizationAddressCity/State/ZIP CodePhone Number [facility] ([facility]) [address] [place] [address] * (ABNORMAL) Comprehensive metabolic panel (04/30/2025 4:10 AM EDT)Component ValueRef RangeTest MethodAnalysis TimePerformed AtPathologist SignatureSodium 134(L)136 - 145 mmol/L1 4:51 AM [facility] ([facility]) Potassium3.53.5 - 5.1 mmol/L1 4:51 AM [facility] ([facility]) Nnjzssfk33(L)98 - 107 mmol/L1 4:51 AM [facility] ([facility]) CO235(H)21 - 31 mmol/L1 4:51 AM [facility] ([facility])Anion Gap97 - 20 mmol/L1 4:51 AM [facility] ([facility])HMU477 - 25 mg/dL04/30/2025 4:51 AM [facility] ([facility])Creatinine1.210.70 - 1.30 mg/dL04/30/2025 4:51 AM [facility] ([facility])BUN/Creatinine Ratio13.2 04/30/2025 4:51 AM [facility] ([facility])Yjrphty47428 - 100 mg/dL 04/30/2025 4:51 AM [facility] ([facility])Calcium8.0(L)8.6 - 10.3 mg/dL 04/30/2025 4:51 AM [facility] ([facility])EHA649(H)13 - 39 U/L1 4:51 AM [facility] ([facility])ALT (SGPT)211(H)7 - 52 U/L1 4:51 AM [facility] ([facility])Alkaline Uoqnyrpctgx8158 - 104 U/L 04/30/2025 4:51 AM [facility] ([facility])Total Protein5.6(L)6.0 - 8.3 g/dL04/30/2025 4:51 AM [facility] ([facility])Albumin3.2(L)3.5 - 5.7 g/dL04/30/2025 4:51 AM [facility] ([facility])Total Bilirubin0.80.3 - 1.0 mg/dL04/30/2025 4:51 AM [facility] ([facility])eGFR64.8>60.0 mL/min/1.73m* 4:51 AM [facility] ([facility])Comment:[facility]???s estimated glomerular filtration rate (eGFR) will no [...] not disproportionately affect any one group of individuals.Specimen (Source)Anatomical Location / LateralityCollection Method / VolumeCollection TimeReceived TimeBloodArterial blood specimen / UnknownArterial Puncture / Iffohht1504/30/2025 4:10 AM EDT1 4:23 AM EDT Narrative Authorizing ProviderResult TypeResult StatusAadil Raj MDLAB BLOOD ORDERABLES Final ResultPerforming OrganizationAddressCity/State/ZIP CodePhone Number [facility]) [address] [place] [address] * (ABNORMAL) Phosphorus (04/30/2025 12:09 AM EDT)ComponentValueRef RangeTest MethodAnalysis TimePerformed AtPathologist SignaturePhosphorus2.1(L)2.5 - 5.0 mg/dL04/30/2025 12:51 AM [facility] ([facility])Specimen (Source) Anatomical Location / LateralityCollection Method / VolumeCollection Time Received TimeBloodArterial blood specimen / UnknownArterial Puncture / Unknown 04/30/2025 12:09 AM EDT1 12:26 AM EDT Narrative Authorizing ProviderResult TypeResult StatusAadil Raj MDLAB BLOOD ORDERABLES Final ResultPerforming OrganizationAddressCity/State/ZIP CodePhone Number [facility]) [address] [place] [address] * Magnesium (04/30/2025 12:09 AM EDT)ComponentValueRef RangeTest MethodAnalysis TimePerformed AtPathologist SignatureMagnesium2.01.9 - 2.7 mg/dL04/30/2025 12:51 AM [facility] ([facility])Specimen (Source)Anatomical Location / LateralityCollection Method / VolumeCollection TimeReceived TimeBloodArterial blood specimen / UnknownArterial Puncture / Zojaajn4504/30/2025 12:09 AM EDT 04/30/2025 12:26 AM EDT Narrative Authorizing ProviderResult TypeResult StatusAadil Raj MURRAY BLOOD ORDERABLES Final ResultPerforming OrganizationAddressCity/State/ZIP CodePhone Number [facility] ([facility]) [address] [place] [address] * (ABNORMAL) Basic metabolic panel (04/30/2025 12:09 AM EDT)ComponentValueRef RangeTest MethodAnalysis TimePerformed AtPathologist HigpyjrcoEydect105(L)136 - 145 mmol/L1 12:51 AM [facility] ([facility])Potassium3.63.5 - 5.1 mmol/L1 12:51 AM [facility] ([facility])Bwdthxpe82(L)98 - 107 mmol/L1 12:51 AM [facility] ([facility])CO233(H)21 - 31 mmol/L1 12:51 AM [facility] ([facility])UIV388 - 25 mg/dL 04/30/2025 12:51 AM [facility] ([facility])Creatinine1.32(H)0.70 - 1.30 mg/dL04/30/2025 12:51 AM [facility] ([facility])Aweszvi042(H)70 - 100 mg/dL04/30/2025 12:51 AM [facility] ([facility])Calcium7.8(L)8.6 - 10.3 mg/dL04/30/2025 12:51 AM [facility] ([facility])Anion Usq752 - 20 mmol/L 04/30/2025 12:51 AM [facility] ([facility])eGFR58.4(L)>60.0 mL/min/1.73m* 12:51 AM [facility] ([facility])Comment:[facility]???s estimated glomerular filtration rate (eGFR) will no [...] not disproportionately affect any one group of individuals.BUN/Creatinine Ratio13. 12:51 AM [facility] ([facility])Specimen (Source)Anatomical Location / LateralityCollection Method / VolumeCollection TimeReceived TimeBloodArterial blood specimen / Unknown Arterial Puncture / Nnpmdzc3404/30/2025 12:09 AM EDT1 12:26 AM EDT Narrative Authorizing ProviderResult TypeResult StatusAadienid MURRAY BLOOD ORDERABLES Final ResultPerforming OrganizationAddressCity/State/ZIP CodePhone Number [facility]) [address] [place] [address] * Phosphorus (04/29/2025 8:02 PM EDT)ComponentValueRef RangeTest MethodAnalysis TimePerformed AtPathologist SignaturePhosphorus2.82.5 - 5.0 mg/dL04/29/2025 8:29 PM [facility] ([facility])Specimen (Source)Anatomical Location / LateralityCollection Method / VolumeCollection TimeReceived TimeBloodArterial blood specimen / UnknownArterial Puncture / Amsypan5104/29/2025 8:02 PM EDT 04/29/2025 8:05 PM EDT Narrative Authorizing ProviderResult TypeResult StatusAadil Raj KLEINLAB BLOOD ORDERABLES Final ResultPerforming OrganizationAddressCity/State/ZIP CodePhone Number [facility] ([facility]) [address] [place] [address] * Magnesium (04/29/2025 8:02 PM EDT)ComponentValueRef RangeTest MethodAnalysis TimePerformed AtPathologist SignatureMagnesium1.91.9 - 2.7 mg/dL04/29/2025 8:29 PM [facility] ([facility])Specimen (Source)Anatomical Location / LateralityCollection Method / VolumeCollection TimeReceived TimeBloodArterial blood specimen / UnknownArterial Puncture / Nbardun3804/29/2025 8:02 PM EDT 04/29/2025 8:05 PM EDT Narrative Authorizing ProviderResult TypeResult StatusAadil Raj MURRAY BLOOD ORDERABLES Final ResultPerforming OrganizationAddressCity/State/ZIP CodePhone Number [facility] ([facility]) [address] [place] [address] * (ABNORMAL) Basic metabolic panel (04/29/2025 8:02 PM EDT)ComponentValueRef RangeTest MethodAnalysis TimePerformed AtPathologist CunxhegeqXtneov269(L)136 - 145 mmol/L1 8:29 PM [facility] ([facility])Potassium3.63.5 - 5.1 mmol/L1 8:29 PM [facility] ([facility])Hvxtbpva36(L)98 - 107 mmol/L1 8:29 PM [facility] ([facility])CO233(H)21 - 31 mmol/L1 8:29 PM [facility] ([facility])YFA413 - 25 mg/dL 04/29/2025 8:29 PM [facility] ([facility])Creatinine1.46(H)0.70 - 1.30 mg/dL04/29/2025 8:29 PM [facility] ([facility])Lgqaltz105(H)70 - 100 mg/dL04/29/2025 8:29 PM [facility] ([facility])Calcium7.7(L)8.6 - 10.3 mg/dL04/29/2025 8:29 PM [facility] ([facility])Anion Ses097 - 20 mmol/L 04/29/2025 8:29 PM [facility] ([facility])eGFR51.7(L)>60.0 mL/min/1.73m* 8:29 PM [facility] ([facility])Comment:[facility]???s estimated glomerular filtration rate (eGFR) will no [...] not disproportionately affect any one group of individuals.BUN/Creatinine Ratio13.710 8:29 PM [facility] ([facility])Specimen (Source)Anatomical Location / LateralityCollection Method / VolumeCollection TimeReceived TimeBloodArterial blood specimen / Unknown Arterial Puncture / Qcvvgvu6004/29/2025 8:02 PM EDT1 8:05 PM EDT Narrative Authorizing ProviderResult TypeResult StatusAadil Raj MELAB BLOOD ORDERABLES Final ResultPerforming OrganizationAddressCity/State/ZIP CodePhone Number [facility] ([facility]) [address] [place] [address] * (ABNORMAL) Blood Gas, Venous (04/29/2025 3:38 PM EDT)ComponentValueRef Range Test MethodAnalysis TimePerformed AtPathologist SignaturepH, Ven7.43(H)7.31 - 7.411 3:56 PM [facility]TN[facility] THERAPYpCO2, Lcx2679 - 50 mmHg 04/29/2025 3:56 PM EDTNOR[facility] RESPIRATORY THERAPYpO2, Eat1687 - 45 mmHg04/29/2025 3:56 PM EDTNOR[facility] RESP[facility]ORY THERAPYO2 Sat, Ven56.1(L)65.0 - 75.0 %04/29/2025 3:56 PM EDTUT RESPIRATORY THERAPYHCO3, Nwsnby37.9mmol/L1 3:56 PM [facility] RESPIRATORY THERAPYOxyhemoglobin, Igkqqn11.6%04/29/2025 3:56 PM EDT [facility] RESPIRATORY THERAPYpH Venous Temp Adjusted7.43(H)7.31 - 7.411 3:56 PM [facility] RESPIRATORY THERAPYpCO2 Venous Temp Vpfdmvvy2747 - 50 mmHg 04/29/2025 3:56 PM [facility] RESPIRATORY THERAPYpO2 Venous Temp Suejcffl2836 - 45 mmHg04/29/2025 3:56 PM [facility] RESPIRATORY GHFRJVWBxqbpozoism65.0??C 04/29/2025 3:56 PM [facility] RESPIRATORY THERAPYSpecimen (Source)Anatomical Location / LateralityCollection Method / VolumeCollection TimeReceived Time BloodVenous blood specimen / UnknownExisting Catheter / Mhkwjyu5304/29/2025 3:38 PM EDT1 3:51 PM EDT Narrative Authorizing ProviderResult TypeResult StatusAajohann MURRAY BLOOD ORDERABLES Final ResultPerforming OrganizationAddressCity/State/ZIP CodePhone Number [facility] RESPIRATORY THERAPY [address] [place] [address], * Phosphorus (04/29/2025 3:38 PM EDT)ComponentValueRef RangeTest MethodAnalysis TimePerformed AtPathologist SignaturePhosphorus3.02.5 - 5.0 mg/dL04/29/2025 4:05 PM [facility] ([facility])Specimen (Source)Anatomical Location / LateralityCollection Method / VolumeCollection TimeReceived TimeBloodVenous blood specimen / UnknownExisting Catheter / Asjunvr7904/29/2025 3:38 PM EDT 04/29/2025 3:43 PM EDT Narrative Authorizing ProviderResult TypeResult StatusPepe MURRAY BLOOD ORDERABLES Final ResultPerforming OrganizationAddressCity/State/ZIP CodePhone Number [facility] ([facility]) [address] [place] [address] * Magnesium (04/29/2025 3:38 PM EDT)ComponentValueRef RangeTest MethodAnalysis TimePerformed AtPathologist SignatureMagnesium2.01.9 - 2.7 mg/dL04/29/2025 4:05 PM [facility] ([facility])Specimen (Source)Anatomical Location / LateralityCollection Method / VolumeCollection TimeReceived TimeBloodVenous blood specimen / UnknownExisting Catheter / Ukitkdm6504/29/2025 3:38 PM EDT 04/29/2025 3:43 PM EDT Narrative Authorizing ProviderResult TypeResult StatusAadil Raj MURRAY BLOOD ORDERABLES Final ResultPerforming OrganizationAddressCity/State/ZIP CodePhone Number [facility] ([facility]) [address] [place] [address] * (ABNORMAL) Basic metabolic panel (04/29/2025 3:38 PM EDT)ComponentValueRef RangeTest MethodAnalysis TimePerformed AtPathologist SuagjmqapLeuzqu814(L)136 - 145 mmol/L1 4:05 PM [facility] ([facility])Potassium3.63.5 - 5.1 mmol/L1 4:05 PM [facility] ([facility])Vqpwyxmj72(L)98 - 107 mmol/L1 4:05 PM [facility] ([facility])CO232(H)21 - 31 mmol/L1 4:05 PM [facility] ([facility])YUA012 - 25 mg/dL 04/29/2025 4:05 PM [facility] ([facility])Creatinine1.47(H)0.70 - 1.30 mg/dL04/29/2025 4:05 PM [facility] ([facility])Roqoelr625(H)70 - 100 mg/dL04/29/2025 4:05 PM [facility] ([facility])Calcium8.0(L)8.6 - 10.3 mg/dL04/29/2025 4:05 PM [facility] ([facility])Anion Kim486 - 20 mmol/L 04/29/2025 4:05 PM [facility] ([facility])eGFR51.3(L)>60.0 mL/min/1.73m* 4:05 PM [facility] ([facility])Comment:[facility]???s estimated glomerular filtration rate (eGFR) will no [...] not disproportionately affect any one group of individuals.BUN/Creatinine Ratio14. 4:05 PM [facility] ([facility])Specimen (Source)Anatomical Location / LateralityCollection Method / VolumeCollection TimeReceived TimeBloodVenous blood specimen / Unknown Existing Catheter / Owccbfp8004/29/2025 3:38 PM EDT1 3:43 PM EDT Narrative Authorizing ProviderResult TypeResult StatusAadil Raj [employer] BLOOD ORDERABLES Final ResultPerforming OrganizationAddressCity/State/ZIP CodePhone Number [facility]) [address] [place] [address] * Phosphorus (04/29/2025 1:02 PM EDT)ComponentValueRef RangeTest MethodAnalysis TimePerformed AtPathologist SignaturePhosphorus2.52.5 - 5.0 mg/dL04/29/2025 1:31 PM [facility] ([facility])Specimen (Source)Anatomical Location / LateralityCollection Method / VolumeCollection TimeReceived TimeBloodVenous blood specimen / UnknownExisting Catheter / Iytsexd5304/29/2025 1:02 PM EDT 04/29/2025 1:09 PM EDT Narrative Authorizing ProviderResult TypeResult StatusAadil Raj MDLAB BLOOD ORDERABLES Final ResultPerforming OrganizationAddressCity/State/ZIP CodePhone Number [facility]) [address] [place] [address] * Magnesium (04/29/2025 1:02 PM EDT)ComponentValueRef RangeTest MethodAnalysis TimePerformed AtPathologist SignatureMagnesium2.11.9 - 2.7 mg/dL04/29/2025 1:31 PM [facility] [facility]Specimen (Source)Anatomical Location / LateralityCollection Method / VolumeCollection TimeReceived TimeBloodVenous blood specimen / UnknownExisting Catheter / Hfmzyuz8704/29/2025 1:02 PM EDT 04/29/2025 1:09 PM EDT Narrative Authorizing ProviderResult TypeResult StatusAadil Raj MURRAY BLOOD ORDERABLES Final ResultPerforming OrganizationAddressCity/State/ZIP CodePhone Number [facility] ([facility]) [address] [place] [address] * (ABNORMAL) Basic metabolic panel (04/29/2025 1:02 PM EDT)ComponentValueRef RangeTest MethodAnalysis TimePerformed AtPathologist ZahviaqbmHhkhff626(L)136 - 145 mmol/L1 1:31 PM [facility] ([facility])Potassium3.53.5 - 5.1 mmol/L1 1:31 PM [facility] ([facility])Jtvayqbc64(L)98 - 107 mmol/L1 1:31 PM [facility] ([facility])CO232(H)21 - 31 mmol/L1 1:31 PM [facility] ([facility])RRH285 - 25 mg/dL 04/29/2025 1:31 PM [facility] ([facility])Creatinine1.69(H)0.70 - 1.30 mg/dL04/29/2025 1:31 PM [facility] ([facility])Nqlvodm679(H)70 - 100 mg/dL04/29/2025 1:31 PM [facility] ([facility])Calcium8.0(L)8.6 - 10.3 mg/dL04/29/2025 1:31 PM [facility] ([facility])Anion Nts182 - 20 mmol/L 04/29/2025 1:31 PM [facility] ([facility])eGFR43.4(L)>60.0 mL/min/1.73m* 1:31 PM [facility] ([facility])Comment:[facility]???s estimated glomerular filtration rate (eGFR) will no [...] not disproportionately affect any one group of individuals.BUN/Creatinine Ratio13. 1:31 PM [facility] ([facility])Specimen (Source)Anatomical Location / LateralityCollection Method / VolumeCollection TimeReceived TimeBloodVenous blood specimen / Unknown Existing Catheter / Uuwemjn6604/29/2025 1:02 PM EDT1 1:09 PM EDT Narrative Authorizing ProviderResult TypeResult StatusAadil Raj MURRAY BLOOD ORDERABLES Final ResultPerforming OrganizationAddressCity/State/ZIP CodePhone Number [facility] ([facility]) [address] [place] [address] * XR chest 1 view (04/29/2025 11:20 AM EDT)Anatomical RegionLateralityModality ChestComputed RadiographySpecimen (Source)Anatomical Location / Laterality Collection Method / VolumeCollection TimeReceived Time04/29/2025 11:50 AM EDT Impressions 04/29/2025 11:51 AM EDT [...] not excluded. Electronically signed: Virgilio Barillas MD. Authorizing ProviderResult TypeResult StatusAajohann MORALESG XR PROCEDURES Final Result * (ABNORMAL) Ferritin (04/29/2025 8:14 AM EDT)ComponentValueRef RangeTest Method Analysis TimePerformed AtPathologist SignatureFerritin1,265.0(H)24.0 - 336.0 ng/mL04/29/2025 11:02 AM [facility] ([facility])Specimen (Source) Anatomical Location / LateralityCollection Method / VolumeCollection Time Received TimeBloodVenous blood specimen / UnknownExisting Catheter / Unknown 04/29/2025 8:14 AM EDT1 8:19 AM EDT Narrative Authorizing ProviderResult TypeResult StatusAajohann MURRAY BLOOD ORDERABLES Final ResultPerforming OrganizationAddressCity/State/ZIP CodePhone Number [facility] ([facility]) [address] [place] [address] * (ABNORMAL) Iron and TIBC (04/29/2025 8:14 AM EDT)ComponentValueRef RangeTest MethodAnalysis TimePerformed AtPathologist FgkrvhetjTqzp39(L)50 - 212 ug/dL 04/29/2025 10:43 AM [facility] ([facility])ICIR307(L)250 - 450 ug/dL 04/29/2025 10:43 AM [facility] ([facility])Iron Ecfsyeneke04(L)20 - 50 % 04/29/2025 10:43 AM [facility] ([facility])JHSK614.0155.0 - 355.0 ug/dL 04/29/2025 10:43 AM [facility] ([facility])Specimen (Source)Anatomical Location / LateralityCollection Method / VolumeCollection TimeReceived Time BloodVenous blood specimen / UnknownExisting Catheter / Gozpuur3804/29/2025 8:14 AM EDT1 8:19 AM EDT Narrative Authorizing ProviderResult TypeResult StatusAajohann Anthony MDLAB BLOOD ORDERABLES Final ResultPerforming OrganizationAddressCity/State/ZIP CodePhone Number [facility] ([facility]) [address] [place] [address] * (ABNORMAL) Phosphorus (04/29/2025 8:14 AM EDT)ComponentValueRef RangeTest MethodAnalysis TimePerformed AtPathologist SignaturePhosphorus2.4(L)2.5 - 5.0 mg/dL04/29/2025 8:43 AM [facility] ([facility])Specimen (Source) Anatomical Location / LateralityCollection Method / VolumeCollection Time Received TimeBloodVenous blood specimen / UnknownExisting Catheter / Unknown 04/29/2025 8:14 AM EDT1 8:19 AM EDT Narrative Authorizing ProviderResult TypeResult StatusAadienid Anthony MDLAB BLOOD ORDERABLES Final ResultPerforming OrganizationAddressCity/State/ZIP CodePhone Number [facility]) [address] [place] [address] * Magnesium (04/29/2025 8:14 AM EDT)ComponentValueRef RangeTest MethodAnalysis TimePerformed AtPathologist SignatureMagnesium2.21.9 - 2.7 mg/dL04/29/2025 8:43 AM [facility] ([facility])Specimen (Source)Anatomical Location / LateralityCollection Method / VolumeCollection TimeReceived TimeBloodVenous blood specimen / UnknownExisting Catheter / Knxgiui5404/29/2025 8:14 AM EDT 04/29/2025 8:19 AM EDT Narrative Authorizing ProviderResult TypeResult StatusAadienid Anthony MDLAB BLOOD ORDERABLES Final ResultPerforming OrganizationAddressCity/State/ZIP CodePhone Number [facility] ([facility]) [address] [place] [address] * (ABNORMAL) Basic metabolic panel (04/29/2025 8:14 AM EDT)ComponentValueRef RangeTest MethodAnalysis TimePerformed AtPathologist RgiqmyvruHofzuw312(L)136 - 145 mmol/L1 8:43 AM [facility] ([facility])Potassium3.63.5 - 5.1 mmol/L1 8:43 AM [facility] ([facility])Slvttkas17(L)98 - 107 mmol/L1 8:43 AM [facility] ([facility])CO232(H)21 - 31 mmol/L1 8:43 AM [facility] ([facility])SKT679 - 25 mg/dL 04/29/2025 8:43 AM [facility] ([facility])Creatinine1.72(H)0.70 - 1.30 mg/dL04/29/2025 8:43 AM [facility] ([facility])Lwzmbiz079(H)70 - 100 mg/dL04/29/2025 8:43 AM [facility] ([facility])Calcium7.8(L)8.6 - 10.3 mg/dL04/29/2025 8:43 AM [facility] ([facility])Anion Vvn060 - 20 mmol/L 04/29/2025 8:43 AM [facility] ([facility])eGFR42.5(L)>60.0 mL/min/1.73m* 8:43 AM [facility] ([facility])Comment:[facility]???s estimated glomerular filtration rate (eGFR) will no [...] not disproportionately affect any one group of individuals.BUN/Creatinine Ratio14.510 8:43 AM [facility] ([facility])Specimen (Source)Anatomical Location / LateralityCollection Method / VolumeCollection TimeReceived TimeBloodVenous blood specimen / Unknown Existing Catheter / Jzheifj0604/29/2025 8:14 AM EDT1 8:19 AM EDT Narrative Authorizing ProviderResult TypeResult StatusAadil Raj MURRAY BLOOD ORDERABLES Final ResultPerforming OrganizationAddressCity/State/ZIP CodePhone Number [facility] ([facility]) [address] [place] [address] * (ABNORMAL) CBC auto differential (04/29/2025 3:04 AM EDT)ComponentValueRef RangeTest MethodAnalysis TimePerformed AtPathologist SignatureAuto WBC9.764.00 - 10.60 10*3/uL04/29/2025 3:30 AM [facility] ([facility])RBC2.59(L)4.20 - 5.70 10*6/uL04/29/2025 3:30 AM [facility] ([facility])Hemoglobin8.3 (L)13.0 - 17.0 g/dL04/29/2025 3:30 AM [facility] ([facility])Hematocrit 23.4(L)39.0 - 50.0 %04/29/2025 3:30 AM [facility] ([facility])MCV90.3 82.0 - 98.0 fL04/29/2025 3:30 AM [facility] ([facility])MCH32.027.0 - 33.0 pg04/29/2025 3:30 AM [facility] ([facility])MCHC35.5(H)32.0 - 35.0 g/dL04/29/2025 3:30 AM [facility] ([facility])RDW14.511.5 - 15.0 % 04/29/2025 3:30 AM [facility] ([facility])Neutrophils %90.3(H)40.0 - 72.0 %04/29/2025 3:30 AM [facility] ([facility])Lymphocytes %3.3(L)20.0 - 45.0 %04/29/2025 3:30 AM [facility] ([facility])Monocytes %5.65.0 - 12.0 %04/29/2025 3:30 AM [facility] ([facility])Eosinophils %0.00.0 - 6.0 %04/29/2025 3:30 AM [facility] ([facility])Basophils %0.10.0 - 1.0 % 04/29/2025 3:30 AM [facility] ([facility])Neutrophils Absolute8.81(H) 1.60 - 7.60 10*3/uL04/29/2025 3:30 AM [facility] ([facility])Lymphocytes Absolute0.32(L)1.20 - 4.00 10*3/uL04/29/2025 3:30 AM [facility] ([facility])Monocytes Absolute0.550.10 - 1.00 10*3/uL04/29/2025 3:30 AM [facility] ([facility])Eosinophils Absolute0.000.00 - 0.50 10*3/uL04/29/2025 3:30 AM [facility] ([facility])Basophils Absolute0.010.00 - 0.20 10*3/uL 04/29/2025 3:30 AM [facility] ([facility])Axvpzolnw602(L)150 - 400 10*3/uL04/29/2025 3:30 AM [facility] ([facility])nRBC %0.3(H)0 % 04/29/2025 3:30 AM [facility])Immature Granulocytes %0.70.0 - 1.0 %04/29/2025 3:30 AM [facility] ([facility])Immature Granulocytes Absolute0.070.00 - 0.20 10*3/uL04/29/2025 3:30 AM [facility])Immature Platelet Fraction %5.70.8 - 6.3 %04/29/2025 3:30 AM [facility])Specimen (Source)Anatomical Location / Laterality Collection Method / VolumeCollection TimeReceived TimeBloodVenous blood specimen / UnknownArterial Line / Jwlvgjd4804/29/2025 3:04 AM EDT1 3:14 AM EDT Narrative Authorizing ProviderResult TypeResult StatusAadienid Anthony MDLAB BLOOD ORDERABLES Final ResultPerforming OrganizationAddressCity/State/ZIP CodePhone Number [facility]) [address] [place] [address] * Phosphorus (04/29/2025 3:04 AM EDT)ComponentValueRef RangeTest MethodAnalysis TimePerformed AtPathologist SignaturePhosphorus2.82.5 - 5.0 mg/dL04/29/2025 3:38 AM [facility] ([facility])Specimen (Source)Anatomical Location / LateralityCollection Method / VolumeCollection TimeReceived TimeBloodArterial blood specimen / UnknownArterial Line / Atzcsfz6704/29/2025 3:04 AM EDT 04/29/2025 3:13 AM EDT Narrative Authorizing ProviderResult TypeResult StatusAadil Raj KLEINLAB BLOOD ORDERABLES Final ResultPerforming OrganizationAddressCity/State/ZIP CodePhone Number [facility]) [address] [place] [address] * Magnesium (04/29/2025 3:04 AM EDT)ComponentValueRef RangeTest MethodAnalysis TimePerformed AtPathologist SignatureMagnesium1.91.9 - 2.7 mg/dL04/29/2025 3:38 AM [facility] ([facility])Specimen (Source)Anatomical Location / LateralityCollection Method / VolumeCollection TimeReceived TimeBloodArterial blood specimen / UnknownArterial Line / Logppqi1304/29/2025 3:04 AM EDT 04/29/2025 3:13 AM EDT Narrative Authorizing ProviderResult TypeResult StatusAadienid Anthony MDLAB BLOOD ORDERABLES Final ResultPerforming OrganizationAddressCity/State/ZIP CodePhone Number [facility] ([facility]) [address] [place] [address] * (ABNORMAL) Basic metabolic panel (04/29/2025 3:04 AM EDT)ComponentValueRef RangeTest MethodAnalysis TimePerformed AtPathologist XuzujejwfIixmqo621(L)136 - 145 mmol/L1 3:38 AM [facility] ([facility])Potassium3.63.5 - 5.1 mmol/L1 3:38 AM [facility] ([facility])Xqpjgbxu11(L)98 - 107 mmol/L1 3:38 AM [facility] ([facility])JB47570 - 31 mmol/L 04/29/2025 3:38 AM [facility] ([facility])BUN32(H)7 - 25 mg/dL04/29/2025 3:38 AM [facility] ([facility])Creatinine2.17(H)0.70 - 1.30 mg/dL 04/29/2025 3:38 AM [facility] ([facility])Gdwoytt639(H)70 - 100 mg/dL 04/29/2025 3:38 AM [facility] ([facility])Calcium7.1(L)8.6 - 10.3 mg/dL 04/29/2025 3:38 AM [facility] ([facility])Anion Hup091 - 20 mmol/L 04/29/2025 3:38 AM [facility] ([facility])eGFR32.2(L)>60.0 mL/min/1.73m* 3:38 AM [facility] ([facility])Comment:[facility]???s estimated glomerular filtration rate (eGFR) will no [...] not disproportionately affect any one group of individuals.BUN/Creatinine Ratio14.710 3:38 AM [facility] ([facility])Specimen (Source)Anatomical Location / LateralityCollection Method / VolumeCollection TimeReceived TimeBloodArterial blood specimen / Unknown Arterial Line / Rucgpmi0504/29/2025 3:04 AM EDT1 3:13 AM EDT Narrative Authorizing ProviderResult TypeResult StatusAadil Raj MURRAY BLOOD ORDERABLES Final ResultPerforming OrganizationAddressCity/State/ZIP CodePhone Number [facility] ([facility]) [address] [place] [address] * (ABNORMAL) Comprehensive metabolic panel (04/29/2025 2:38 AM EDT)Component ValueRef RangeTest MethodAnalysis TimePerformed AtPathologist SignatureSodium 132(L)136 - 145 mmol/L1 3:12 AM [facility] ([facility]) Potassium3.73.5 - 5.1 mmol/L1 3:12 AM [facility] ([facility]) Feccfqeg74(L)98 - 107 mmol/L1 3:12 AM [facility] ([facility]) LB75687 - 31 mmol/L1 3:12 AM [facility] ([facility])Anion Gap14 7 - 20 mmol/L1 3:12 AM [facility] ([facility])BUN32(H)7 - 25 mg/dL04/29/2025 3:12 AM [facility] ([facility])Creatinine2.24(H)0.70 - 1.30 mg/dL04/29/2025 3:12 AM [facility] ([facility])BUN/Creatinine Ratio 14.310 3:12 AM [facility] ([facility])Gwvkaas810(H)70 - 100 mg/dL04/29/2025 3:12 AM [facility] ([facility])Calcium7.5(L)8.6 - 10.3 mg/dL04/29/2025 3:12 AM [facility] ([facility])QFH910(H)13 - 39 U/L 04/29/2025 3:12 AM [facility] ([facility])ALT (SGPT)267(H)7 - 52 U/L 04/29/2025 3:12 AM [facility] ([facility])Alkaline Pgychivzezq1408 - 104 U/L1 3:12 AM [facility] ([facility])Total Protein5.5(L)6.0 - 8.3 g/dL04/29/2025 3:12 AM [facility] ([facility])Albumin3.1(L)3.5 - 5.7 g/dL04/29/2025 3:12 AM [facility] ([facility])Total Bilirubin0.70.3 - 1.0 mg/dL04/29/2025 3:12 AM [facility] ([facility])eGFR31.0(L)>60.0 mL/min/1.73m* 3:12 AM [facility] ([facility])Comment:[facility]???s estimated glomerular filtration rate (eGFR) will no [...] not disproportionately affect any one group of individuals.Specimen (Source)Anatomical Location / LateralityCollection Method / VolumeCollection TimeReceived TimeBloodVenous blood specimen / UnknownArterial Line / Szauvbl6904/29/2025 2:38 AM EDT1 2:45 AM EDT Narrative Authorizing ProviderResult TypeResult StatusAadil Raj MURRAY BLOOD ORDERABLES Final ResultPerforming OrganizationAddressCity/State/ZIP CodePhone Number [facility] ([facility]) [address] [place] [address] * Ammonia (04/29/2025 2:38 AM EDT)ComponentValueRef RangeTest MethodAnalysis TimePerformed AtPathologist XlvywpebmFazyruo5588 - 72 umol/L1 3:06 AM [facility] ([facility])Specimen (Source)Anatomical Location / LateralityCollection Method / VolumeCollection TimeReceived TimeBloodVenous blood specimen / UnknownArterial Line / Fqiurum4604/29/2025 2:38 AM EDT 04/29/2025 2:44 AM EDT Narrative Authorizing ProviderResult TypeResult StatusAadil Raj MDLAB BLOOD ORDERABLES Final ResultPerforming OrganizationAddressCity/State/ZIP CodePhone Number [facility]) [place] [address] * Phosphorus (04/29/2025 12:22 AM EDT)ComponentValueRef RangeTest MethodAnalysis TimePerformed AtPathologist SignaturePhosphorus2.72.5 - 5.0 mg/dL04/29/2025 12:58 AM [facility])Specimen (Source)Anatomical Location / LateralityCollection Method / VolumeCollection TimeReceived TimeBloodArterial blood specimen / UnknownArterial Line / Jfxplmo9904/29/2025 12:22 AM EDT 04/29/2025 12:34 AM EDT Narrative Authorizing ProviderResult TypeResult StatusAadil Raj MDLAB BLOOD ORDERABLES Final ResultPerforming OrganizationAddressCity/State/ZIP CodePhone Number [facility]) [address] [place] [address] * Magnesium (04/29/2025 12:22 AM EDT)ComponentValueRef RangeTest MethodAnalysis TimePerformed AtPathologist SignatureMagnesium2.01.9 - 2.7 mg/dL04/29/2025 12:58 AM [facility])Specimen (Source)Anatomical Location / LateralityCollection Method / VolumeCollection TimeReceived TimeBloodArterial blood specimen / UnknownArterial Line / Fvovxju0004/29/2025 12:22 AM EDT 04/29/2025 12:34 AM EDT Narrative Authorizing ProviderResult TypeResult StatusAadil Raj MDLAB BLOOD ORDERABLES Final ResultPerforming OrganizationAddressCity/State/ZIP CodePhone Number [facility]) [address] [place] [address] * (ABNORMAL) Basic metabolic panel (04/29/2025 12:22 AM EDT)ComponentValueRef RangeTest MethodAnalysis TimePerformed AtPathologist DnapikptqJpftws213(L)136 - 145 mmol/L1 12:58 AM [facility] ([facility])Potassium3.53.5 - 5.1 mmol/L1 12:58 AM [facility] ([facility])Kmiekfzb80(L)98 - 107 mmol/L1 12:58 AM [facility] ([facility])SL32011 - 31 mmol/L 04/29/2025 12:58 AM [facility] ([facility])BUN33(H)7 - 25 mg/dL 04/29/2025 12:58 AM [facility] ([facility])Creatinine2.37(H)0.70 - 1.30 mg/dL04/29/2025 12:58 AM [facility] ([facility])Rhiqayw812(H)70 - 100 mg/dL04/29/2025 12:58 AM [facility] ([facility])Calcium7.2(L)8.6 - 10.3 mg/dL04/29/2025 12:58 AM [facility] ([facility])Anion Bby985 - 20 mmol/L 04/29/2025 12:58 AM [facility] ([facility])eGFR28.9(L)>60.0 mL/min/1.73m* 12:58 AM [facility] ([facility])Comment:[facility]???s estimated glomerular filtration rate (eGFR) will no [...] not disproportionately affect any one group of individuals.BUN/Creatinine Ratio13.91 12:58 AM [facility] ([facility])Specimen (Source)Anatomical Location / LateralityCollection Method / VolumeCollection TimeReceived TimeBloodArterial blood specimen / Unknown Arterial Line / Hsxbmha1004/29/2025 12:22 AM EDT1 12:34 AM EDT Narrative Authorizing ProviderResult TypeResult StatusAadil Raj MDLAB BLOOD ORDERABLES Final ResultPerforming OrganizationAddressCity/State/ZIP CodePhone Number [facility] ([facility]) [address] [place] [address] * Phosphorus (04/28/2025 8:10 PM EDT)ComponentValueRef RangeTest MethodAnalysis TimePerformed AtPathologist SignaturePhosphorus3.32.5 - 5.0 mg/dL04/28/2025 8:44 PM [facility] ([facility])Specimen (Source)Anatomical Location / LateralityCollection Method / VolumeCollection TimeReceived TimeBloodArterial blood specimen / UnknownArterial Line / Ucruglo1404/28/2025 8:10 PM EDT 04/28/2025 8:21 PM EDT Narrative Authorizing ProviderResult TypeResult StatusAadil Raj MDLAB BLOOD ORDERABLES Final ResultPerforming OrganizationAddressCity/State/ZIP CodePhone Number [facility]) [address] [place] [address] * (ABNORMAL) Magnesium (04/28/2025 8:10 PM EDT)ComponentValueRef RangeTest MethodAnalysis TimePerformed AtPathologist SignatureMagnesium1.8(L)1.9 - 2.7 mg/dL04/28/2025 8:44 PM [facility]TD[facility] ([facility])Specimen (Source) Anatomical Location / LateralityCollection Method / VolumeCollection Time Received TimeBloodArterial blood specimen / UnknownArterial Line / Unknown 04/28/2025 8:10 PM EDT1 8:21 PM EDT Narrative Authorizing ProviderResult TypeResult StatusAadil Raj MDLAB BLOOD ORDERABLES Final ResultPerforming OrganizationAddressCity/State/ZIP CodePhone Number [facility] [address] [place] [address] * (ABNORMAL) Basic metabolic panel (04/28/2025 8:10 PM EDT)ComponentValueRef RangeTest MethodAnalysis TimePerformed AtPathologist InwvnutywNnfake087(L)136 - 145 mmol/L1 8:44 PM [facility] ([facility])Potassium3.73.5 - 5.1 mmol/L1 8:44 PM [facility] ([facility])Ukvcfxgd9328 - 107 mmol/L1 8:44 PM [facility] ([facility])[id number] - 31 mmol/L 04/28/2025 8:44 PM [facility] ([facility])BUN38(H)7 - 25 mg/dL04/28/2025 8:44 PM [facility] ([facility])Creatinine2.65(H)0.70 - 1.30 mg/dL 04/28/2025 8:44 PM [facility] ([facility])Ydtpwqf917(H)70 - 100 mg/dL 04/28/2025 8:44 PM [facility] ([facility])Calcium6.9(L)8.6 - 10.3 mg/dL 04/28/2025 8:44 PM [facility] ([facility])Anion Fgm939 - 20 mmol/L 04/28/2025 8:44 PM [facility] ([facility])eGFR25.3(L)>60.0 mL/min/1.73m* 8:44 PM [facility] ([facility])Comment:[facility]???s estimated glomerular filtration rate (eGFR) will no [...] not disproportionately affect any one group of individuals.BUN/Creatinine Ratio14. 8:44 PM [facility] ([facility])Specimen (Source)Anatomical Location / LateralityCollection Method / VolumeCollection TimeReceived TimeBloodArterial blood specimen / Unknown Arterial Line / Uhmszsq8304/28/2025 8:10 PM EDT1 8:21 PM EDT Narrative Authorizing ProviderResult TypeResult StatusAajohann Anthony MDLAB BLOOD ORDERABLES Final ResultPerforming OrganizationAddressCity/State/ZIP CodePhone Number [facility] ([facility]) [address] [place] [address] * Phosphorus (04/28/2025 3:57 PM EDT)ComponentValueRef RangeTest MethodAnalysis TimePerformed AtPathologist SignaturePhosphorus4.12.5 - 5.0 mg/dL04/28/2025 4:30 PM [facility] ([facility])Specimen (Source)Anatomical Location / LateralityCollection Method / VolumeCollection TimeReceived TimeBloodArterial blood specimen / UnknownArterial Line / Hddhxek6804/28/2025 3:57 PM EDT 04/28/2025 4:06 PM EDT Narrative Authorizing ProviderResult TypeResult StatusAajohann Anthony MDLAB BLOOD ORDERABLES Final ResultPerforming OrganizationAddressCity/State/ZIP CodePhone Number [facility] ([facility]) [address] [place] [address] * (ABNORMAL) Comprehensive metabolic panel (04/28/2025 3:57 PM EDT)Component ValueRef RangeTest MethodAnalysis TimePerformed AtPathologist SignatureSodium 131(L)136 - 145 mmol/L1 4:31 PM [facility] ([facility]) Potassium3.63.5 - 5.1 mmol/L1 4:31 PM [facility] ([facility]) Zzaebygf9543 - 107 mmol/L1 4:31 PM [facility] ([facility])CO222 21 - 31 mmol/L1 4:31 PM [facility] ([facility])Anion Xuv024 - 20 mmol/L1 4:31 PM [facility] ([facility])BUN43(H)7 - 25 mg/dL 04/28/2025 4:31 PM [facility] ([facility])Creatinine3.18(H)0.70 - 1.30 mg/dL04/28/2025 4:31 PM [facility] ([facility])BUN/Creatinine Ratio13.5 04/28/2025 4:31 PM [facility] ([facility])Walbeeg291(H)70 - 100 mg/dL 04/28/2025 4:31 PM [facility] ([facility])Calcium6.9(L)8.6 - 10.3 mg/dL 04/28/2025 4:31 PM [facility] ([facility])QGU871(H)13 - 39 U/L1 4:31 PM [facility] ([facility])ALT (SGPT)314(H)7 - 52 U/L1 4:31 PM [facility] ([facility])Alkaline Xenzlyundwj0160 - 104 U/L 04/28/2025 4:31 PM [facility] ([facility])Total Protein5.5(L)6.0 - 8.3 g/dL04/28/2025 4:31 [facility] ([facility])Albumin3.1(L)3.5 - 5.7 g/dL04/28/2025 4:31 [facility] ([facility])Total Bilirubin0.60.3 - 1.0 mg/dL04/28/2025 4:31 [facility] ([facility])eGFR20.3(L)>60.0 mL/min/1.73m* 4:31 PM [facility] ([facility])Comment:[facility]???s estimated glomerular filtration rate (eGFR) will no [...] not disproportionately affect any one group of individuals.Specimen (Source)Anatomical Location / LateralityCollection Method / VolumeCollection TimeReceived TimeBloodArterial blood specimen / UnknownArterial Line / Aedmqti7604/28/2025 3:57 PM EDT1 4:06 PM EDT Narrative Authorizing ProviderResult TypeResult StatusAadil Raj MELAB BLOOD ORDERABLES Final ResultPerforming OrganizationAddressCity/State/ZIP CodePhone Number [facility]) [address] [place] [phone] * Magnesium (04/28/2025 3:57 PM EDT)ComponentValueRef RangeTest MethodAnalysis TimePerformed AtPathologist SignatureMagnesium2.01.9 - 2.7 mg/dL04/28/2025 4:30 PM [facility])Specimen (Source)Anatomical Location / LateralityCollection Method / VolumeCollection TimeReceived TimeBloodArterial blood specimen / UnknownArterial Line / Vddguva6704/28/2025 3:57 PM EDT 04/28/2025 4:06 PM EDT Narrative Authorizing ProviderResult TypeResult StatusAadienid Raj MDLAB BLOOD ORDERABLES Final ResultPerforming OrganizationAddressCity/State/ZIP CodePhone Number [facility]) [address] [place] [address] * Phosphorus (04/28/2025 1:46 PM EDT)ComponentValueRef RangeTest MethodAnalysis TimePerformed AtPathologist SignaturePhosphorus4.72.5 - 5.0 mg/dL04/28/2025 2:19 PM [facility])Specimen (Source)Anatomical Location / LateralityCollection Method / VolumeCollection TimeReceived TimeBloodArterial blood specimen / UnknownArterial Line / Zazxpmm5204/28/2025 1:46 PM EDT 04/28/2025 1:57 PM EDT Narrative Authorizing ProviderResult TypeResult StatusAadil Raj MDLAB BLOOD ORDERABLES Final ResultPerforming OrganizationAddressCity/State/ZIP CodePhone Number [facility]) [address] [place] [address] * Magnesium (04/28/2025 1:46 PM EDT)ComponentValueRef RangeTest MethodAnalysis TimePerformed AtPathologist SignatureMagnesium2.01.9 - 2.7 mg/dL04/28/2025 2:19 PM [facility] ([facility])Specimen (Source)Anatomical Location / LateralityCollection Method / VolumeCollection TimeReceived TimeBloodArterial blood specimen / UnknownArterial Line / Dqyrghj2704/28/2025 1:46 PM EDT 04/28/2025 1:57 PM EDT Narrative Authorizing ProviderResult TypeResult StatusAadil Raj MDLAB BLOOD ORDERABLES Final ResultPerforming OrganizationAddressCity/State/ZIP CodePhone Number [facility]) [address] [place] [address] * (ABNORMAL) Basic metabolic panel (04/28/2025 1:46 PM EDT)ComponentValueRef RangeTest MethodAnalysis TimePerformed AtPathologist DoryelxbcMhxjls890(L)136 - 145 mmol/L1 2:19 PM [facility] ([facility])Potassium3.63.5 - 5.1 mmol/L1 2:19 PM [facility] ([facility])Obcfmhva94523 - 107 mmol/L1 2:19 PM [facility] ([facility])MG08668 - 31 mmol/L 04/28/2025 2:19 PM [facility] ([facility])BUN45(H)7 - 25 mg/dL04/28/2025 2:19 PM [facility] ([facility])Creatinine3.34(H)0.70 - 1.30 mg/dL 04/28/2025 2:19 PM [facility] ([facility])Nxkrptf011(H)70 - 100 mg/dL 04/28/2025 2:19 PM [facility] ([facility])Calcium6.3(L)8.6 - 10.3 mg/dL 04/28/2025 2:19 PM [facility] ([facility])Anion Vpi079 - 20 mmol/L 04/28/2025 2:19 PM [facility] ([facility])eGFR19.2(L)>60.0 mL/min/1.73m* 2:19 PM [facility] ([facility])Comment:[facility]???s estimated glomerular filtration rate (eGFR) will no [...] not disproportionately affect any one group of individuals.BUN/Creatinine Ratio13.510 2:19 PM [facility] ([facility])Specimen (Source)Anatomical Location / LateralityCollection Method / VolumeCollection TimeReceived TimeBloodArterial blood specimen / Unknown Arterial Line / Wyvonag3004/28/2025 1:46 PM EDT1 1:57 PM EDT Narrative Authorizing ProviderResult TypeResult StatusAadil Raj MDLAB BLOOD ORDERABLES Final ResultPerforming OrganizationAddressCity/State/ZIP CodePhone Number [facility] ([facility]) [address] [place] [address] * POCT glucose meter (04/28/2025 1:44 PM EDT)ComponentValueRef RangeTest Method Analysis TimePerformed AtPathologist SignatureGlucose TJF1345 - 105 mg/dL 04/28/2025 1:56 PM [facility] ([facility])Comment:wqqkfks65Tsfbxnaf (Source)Anatomical Location / LateralityCollection Method / VolumeCollection TimeReceived TimeBloodCapillary blood specimen / Mrtxthv3404/28/2025 1:44 PM EDT 04/28/2025 1:56 PM EDT Narrative [facility] ([facility]) - 04/28/2025 1:56 PM EDT Waived Testing in the ED is performed under the ED CLIA certificate #[id number]. Authorizing ProviderResult TypeResult StatusAadil Raj MURRAY BLOOD ORDERABLES Final ResultPerforming OrganizationAddressCity/State/ZIP CodePhone Number [facility] ([facility]) [address] [place] [address] * (ABNORMAL) Arterial Blood Gases (04/28/2025 8:54 AM EDT)ComponentValueRef RangeTest MethodAnalysis TimePerformed AtPathologist SignaturepH, Arterial7.36 7.35 - 7.451 8:54 AM [facility] RESPIRATORY THERAPYpCO2, Aibjcrpp58(L)35 - 45 mmHg04/28/2025 8:54 AM [facility] RESPIRATORY THERAPYpO2, Vilppclh6386 - 108 mmHg04/28/2025 8:54 AM [facility] RESPIRATORY THERAPYHCO3, Yvhryqha90.9(L) 21.0 - 28.0 mmol/L1 8:54 AM [facility] RESPIRATORY THERAPYO2 Sat, Fjeefseu33.194.0 - 100.0 %04/28/2025 8:54 AM [facility] RESPIRATORY THERAPYBase Excess, Arterial-7.3(L)-2.0 - 3.0 mmol/L1 8:54 AM [facility] RESPIRATORY THERAPYOxyhemoglobin, Thaprpub34.294.0 - 97.0 %04/28/2025 8:54 AM [facility] RESPIRATORY ZASHLDESmardfedkxw90.0??04/28/2025 8:54 AM [facility] RESPIRATORY THERAPYOxygen Device #2Wqcfwtk33/11/2025 8:54 AM [facility] LPM4.0LPM1 8:54 AM [facility] THERAPYPF Ratio04/28/2025 8:54 AM [facility] THERAPYComment:C^IncalculableA-aFu05704/28/2025 8:54 AM [facility] THERAPYComment:C^IncalculablepaO2/iAU48304/28/2025 8:54 AM [facility] RESPIRATORY THERAPYComment:C^IncalculableSpecimen (Source)Anatomical Location / LateralityCollection Method / VolumeCollection TimeReceived Time BloodArterial blood specimen / Vadakej7304/28/2025 8:54 AM EDT1 8:54 AM EDT Narrative Authorizing ProviderResult TypeResult StatusAadil Raj MDLAB BLOOD ORDERABLES Final ResultPerforming OrganizationAddressCity/State/ZIP CodePhone Number [facility] RESPIRATORY THERAPY [address] [place] [address], * Phosphorus (04/28/2025 8:37 AM EDT)ComponentValueRef RangeTest MethodAnalysis TimePerformed AtPathologist SignaturePhosphorus4.92.5 - 5.0 mg/dL04/28/2025 9:10 AM [facility] ([facility])Specimen (Source)Anatomical Location / LateralityCollection Method / VolumeCollection TimeReceived TimeBloodArterial blood specimen / UnknownArterial Line / Dodbxkf0804/28/2025 8:37 AM EDT 04/28/2025 8:47 AM EDT Narrative Authorizing ProviderResult TypeResult StatusAadil Raj MDLAB BLOOD ORDERABLES Final ResultPerforming OrganizationAddressCity/State/ZIP CodePhone Number [facility] ([facility]) [address] [place] [address] * Magnesium (04/28/2025 8:37 AM EDT)ComponentValueRef RangeTest MethodAnalysis TimePerformed AtPathologist SignatureMagnesium2.11.9 - 2.7 mg/dL04/28/2025 9:10 AM [facility] ([facility])Specimen (Source)Anatomical Location / LateralityCollection Method / VolumeCollection TimeReceived TimeBloodArterial blood specimen / UnknownArterial Line / Apcuwcf6704/28/2025 8:37 AM EDT 04/28/2025 8:47 AM EDT Narrative Authorizing ProviderResult TypeResult StatusAadil Raj MDLAB BLOOD ORDERABLES Final ResultPerforming OrganizationAddressCity/State/ZIP CodePhone Number [facility] ([facility]) [address] [place] [address] * (ABNORMAL) Basic metabolic panel (04/28/2025 8:37 AM EDT)ComponentValueRef RangeTest MethodAnalysis TimePerformed AtPathologist FirhkmgocKqqurn821(L)136 - 145 mmol/L1 9:10 AM [facility] ([facility])Potassium4.33.5 - 5.1 mmol/L1 9:10 AM [facility] ([facility])Jyzvmqdd4973 - 107 mmol/L1 9:10 AM [facility] ([facility])SB50825 - 31 mmol/L 04/28/2025 9:10 AM [facility] ([facility])BUN42(H)7 - 25 mg/dL04/28/2025 9:10 AM [facility] ([facility])Creatinine3.36(H)0.70 - 1.30 mg/dL 04/28/2025 9:10 AM [facility] ([facility])Pcazunv222(H)70 - 100 mg/dL 04/28/2025 9:10 AM [facility] ([facility])Calcium6.7(L)8.6 - 10.3 mg/dL 04/28/2025 9:10 AM [facility] ([facility])Anion Oyi553 - 20 mmol/L 04/28/2025 9:10 AM [facility] ([facility])eGFR19.0(L)>60.0 mL/min/1.73m* 9:10 AM [facility] ([facility])Comment:[facility]???s estimated glomerular filtration rate (eGFR) will no [...] not disproportionately affect any one group of individuals.BUN/Creatinine Ratio12.510/05/2025 9:10 AM [facility] ([facility])Specimen (Source)Anatomical Location / LateralityCollection Method / VolumeCollection TimeReceived TimeBloodArterial blood specimen / Unknown Arterial Line / Oieprgl9004/28/2025 8:37 AM EDT1 8:47 AM EDT Narrative Authorizing ProviderResult TypeResult StatusAadil Raj MURRAY BLOOD ORDERABLES Final ResultPerforming OrganizationAddressCity/State/ZIP CodePhone Number [facility] ([facility]) [address] [place] [address] * (ABNORMAL) CBC (04/28/2025 3:21 AM EDT)ComponentValueRef RangeTest Method Analysis TimePerformed AtPathologist SignatureAuto WBC19.72(H)4.00 - 10.60 10*3/uL04/28/2025 4:06 AM [facility] ([facility])RBC2.90(L)4.20 - 5.70 10*6/uL04/28/2025 4:06 AM [facility] ([facility])Hemoglobin9.4(L)13.0 - 17.0 g/dL04/28/2025 4:06 AM [facility] ([facility])Ruufnnbrdn48.2(L)39.0 - 50.0 %04/28/2025 4:06 AM [facility] ([facility])MCV93.882.0 - 98.0 fL 04/28/2025 4:06 AM [facility] ([facility])MCH32.427.0 - 33.0 pg 04/28/2025 4:06 AM [facility] ([facility])MCHC34.632.0 - 35.0 g/dL 04/28/2025 4:06 AM [facility] ([facility])RDW14.311.5 - 15.0 %04/28/2025 4:06 AM [facility] ([facility])Irujsilgx783690 - 400 10*3/uL04/28/2025 4:06 AM [facility] ([facility])Specimen (Source)Anatomical Location / LateralityCollection Method / VolumeCollection TimeReceived TimeBloodVenous blood specimen / UnknownArterial Line / Udoipxs4704/28/2025 3:21 AM EDT 04/28/2025 3:41 AM EDT Narrative Authorizing ProviderResult TypeResult StatusAajohann Anthony MDLAB BLOOD ORDERABLES Final ResultPerforming OrganizationAddressCity/State/ZIP CodePhone Number [facility]) [address] [place] [address] * Phosphorus (04/28/2025 3:06 AM EDT)ComponentValueRef RangeTest MethodAnalysis TimePerformed AtPathologist SignaturePhosphorus4.42.5 - 5.0 mg/dL04/28/2025 3:38 AM [facility] ([facility])Specimen (Source)Anatomical Location / LateralityCollection Method / VolumeCollection TimeReceived TimeBloodVenous blood specimen / UnknownArterial Line / Jiotsrm5804/28/2025 3:06 AM EDT 04/28/2025 3:16 AM EDT Narrative Authorizing ProviderResult TypeResult StatusAadienid Anthony MDLAB BLOOD ORDERABLES Final ResultPerforming OrganizationAddressCity/State/ZIP CodePhone Number [facility]) [address] [place] [address] * Magnesium (04/28/2025 3:06 AM EDT)ComponentValueRef RangeTest MethodAnalysis TimePerformed AtPathologist SignatureMagnesium1.91.9 - 2.7 mg/dL04/28/2025 3:38 AM [facility])Specimen (Source)Anatomical Location / LateralityCollection Method / VolumeCollection TimeReceived TimeBloodVenous blood specimen / UnknownArterial Line / Srqycwa3304/28/2025 3:06 AM EDT 04/28/2025 3:16 AM EDT Narrative Authorizing ProviderResult TypeResult StatusAadil Raj MDLAB BLOOD ORDERABLES Final ResultPerforming OrganizationAddressCity/State/ZIP CodePhone Number [facility]) [address] [place] [address] * (ABNORMAL) Basic metabolic panel (04/28/2025 3:06 AM EDT)ComponentValueRef RangeTest MethodAnalysis TimePerformed AtPathologist NvriystzaBpgqqq146(L)136 - 145 mmol/L1 3:38 AM [facility] ([facility])Potassium4.33.5 - 5.1 mmol/L1 3:38 AM [facility] ([facility])Efkyllne49975 - 107 mmol/L1 3:38 AM [facility] ([facility])CO216(L)21 - 31 mmol/L 04/28/2025 3:38 AM [facility] ([facility])BUN41(H)7 - 25 mg/dL04/28/2025 3:38 AM [facility] ([facility])Creatinine3.23(H)0.70 - 1.30 mg/dL 04/28/2025 3:38 AM [facility] ([facility])Rbgwgxi369(H)70 - 100 mg/dL 04/28/2025 3:38 AM [facility] ([facility])Calcium7.0(L)8.6 - 10.3 mg/dL 04/28/2025 3:38 AM [facility] ([facility])Anion Cmb618 - 20 mmol/L 04/28/2025 3:38 AM [facility] ([facility])eGFR20.0(L)>60.0 mL/min/1.73m* 3:38 AM [facility] ([facility])Comment:[facility]???s estimated glomerular filtration rate (eGFR) will no [...] not disproportionately affect any one group of individuals.BUN/Creatinine Ratio12. 3:38 AM [facility] ([facility])Specimen (Source)Anatomical Location / LateralityCollection Method / VolumeCollection TimeReceived TimeBloodVenous blood specimen / Unknown Arterial Line / Fxbplgq5804/28/2025 3:06 AM EDT1 3:16 AM EDT Narrative Authorizing ProviderResult TypeResult StatusZhen MURRAY BLOOD ORDERABLES Final ResultPerforming OrganizationAddressCity/State/ZIP CodePhone Number [facility] ([facility]) [address] [place] [address] * XR abdomen 1 view (04/28/2025 12:50 AM EDT)Anatomical RegionLateralityModality AbdomenComputed RadiographySpecimen (Source)Anatomical Location / Laterality Collection Method / VolumeCollection TimeReceived Time04/28/2025 1:05 AM EDT Impressions 04/28/2025 1:16 AM EDT * Nonobstructive bowel gas pattern. Approved by:Phill Orellana 1:10 AM. El Ramirez,have reviewed the image(s) and agree with the [...] gas pattern. Approved by:Phill Orellana 1:10 AM. El Ramirez,have reviewed the image(s) and agree with the findingsin this report. Electronically signed: El Gomes. Authorizing ProviderResult TypeResult StatusAajohann Anthony MDIMG XR PROCEDURES Final Result * Phosphorus (04/28/2025 12:06 AM EDT)ComponentValueRef RangeTest MethodAnalysis TimePerformed AtPathologist SignaturePhosphorus3.72.5 - 5.0 mg/dL04/28/2025 12:47 AM [facility] ([facility])Specimen (Source)Anatomical Location / LateralityCollection Method / VolumeCollection TimeReceived TimeBloodArterial blood specimen / UnknownArterial Line / Bmasjoa4404/28/2025 12:06 AM EDT 04/28/2025 12:12 AM EDT Narrative Authorizing ProviderResult TypeResult StatusAajohann Anthony MDLAB BLOOD ORDERABLES Final ResultPerforming OrganizationAddressCity/State/ZIP CodePhone Number [facility]) [address] [place] [address] * Magnesium (04/28/2025 12:06 AM EDT)ComponentValueRef RangeTest MethodAnalysis TimePerformed AtPathologist SignatureMagnesium1.91.9 - 2.7 mg/dL04/28/2025 12:47 AM [facility] ([facility])Specimen (Source)Anatomical Location / LateralityCollection Method / VolumeCollection TimeReceived TimeBloodArterial blood specimen / UnknownArterial Line / Jsrecuo0004/28/2025 12:06 AM EDT 04/28/2025 12:12 AM EDT Narrative Authorizing ProviderResult TypeResult StatusPepe Anthony MDLAB BLOOD ORDERABLES Final ResultPerforming OrganizationAddressCity/State/ZIP CodePhone Number [facility]) [address] [place] [address] * (ABNORMAL) Basic metabolic panel (04/28/2025 12:06 AM EDT)ComponentValueRef RangeTest MethodAnalysis TimePerformed AtPathologist XuvvdrqwvXdzzkd387(L)136 - 145 mmol/L1 12:48 AM [facility])Potassium4.13.5 - 5.1 mmol/L1 12:48 AM [facility] ([facility])Aumbayrv91628 - 107 mmol/L1 12:48 AM [facility] ([facility])CO213(LL)21 - 31 mmol/L1 12:48 AM [facility] ([facility])BUN44(H)7 - 25 mg/dL 04/28/2025 12:48 AM [facility] ([facility])Creatinine3.55(H)0.70 - 1.30 mg/dL04/28/2025 12:48 AM [facility] ([facility])Kkpxkkr132(H)70 - 100 mg/dL04/28/2025 12:48 AM [facility] ([facility])Calcium6.1(L)8.6 - 10.3 mg/dL04/28/2025 12:48 AM [facility] ([facility])Anion Nnn881 - 20 mmol/L 04/28/2025 12:48 AM [facility] ([facility])eGFR17.8(L)>60.0 mL/min/1.73m* 12:48 AM [facility] ([facility])Comment:[facility]???s estimated glomerular filtration rate (eGFR) will no [...] not disproportionately affect any one group of individuals.BUN/Creatinine Ratio12. 12:48 AM [facility] ([facility])Specimen (Source)Anatomical Location / LateralityCollection Method / VolumeCollection TimeReceived TimeBloodArterial blood specimen / Unknown Arterial Line / Sqsqpbe1104/28/2025 12:06 AM EDT1 12:12 AM EDT Narrative Authorizing ProviderResult TypeResult StatusAadil Raj MDLAB BLOOD ORDERABLES Final ResultPerforming OrganizationAddressCity/State/ZIP CodePhone Number [facility]) [place] [address] * (ABNORMAL) Magnesium (04/27/2025 7:57 PM EDT)ComponentValueRef RangeTest MethodAnalysis TimePerformed AtPathologist SignatureMagnesium1.8(L)1.9 - 2.7 mg/dL04/27/2025 9:26 PM [facility] ([facility])Specimen (Source) Anatomical Location / LateralityCollection Method / VolumeCollection Time Received TimeBloodVenous blood specimen / UnknownArterial Line / Unknown 04/27/2025 7:57 PM EDT1 8:11 PM EDT Narrative Authorizing ProviderResult TypeResult StatusAadienid Anthony MDLAB BLOOD ORDERABLES Final ResultPerforming OrganizationAddressCity/State/ZIP CodePhone Number [facility]) [place] [address] * (ABNORMAL) Hemoglobin and hematocrit, blood (04/27/2025 7:57 PM EDT)Component ValueRef RangeTest MethodAnalysis TimePerformed AtPathologist Signature Kkrfdvppmd31.6(L)13.0 - 17.0 g/dL04/27/2025 8:28 PM [facility] ([facility])Vxorfsrqbx61.2(L)39.0 - 50.0 %04/27/2025 8:28 PM [facility] ([facility])Specimen (Source)Anatomical Location / LateralityCollection Method / VolumeCollection TimeReceived TimeBloodVenous blood specimen / UnknownArterial Line / Rkxaicp0104/27/2025 7:57 PM EDT1 8:10 PM EDT Narrative Authorizing ProviderResult TypeResult StatusAadil Raj MDLAB BLOOD ORDERABLES Final ResultPerforming OrganizationAddressCity/State/ZIP CodePhone Number [facility] ([facility]) [address] [place] [address] * (ABNORMAL) Basic metabolic panel (04/27/2025 7:57 PM EDT)ComponentValueRef RangeTest MethodAnalysis TimePerformed AtPathologist MicfvvwbhKdwgdq375(L)136 - 145 mmol/L1 8:36 PM [facility] ([facility])Potassium4.63.5 - 5.1 mmol/L1 8:36 PM [facility] ([facility])Qffztbxk7996 - 107 mmol/L1 8:36 PM [facility] ([facility])CO215(L)21 - 31 mmol/L 04/27/2025 8:36 PM [facility] ([facility])BUN47(H)7 - 25 mg/dL04/27/2025 8:36 PM [facility] ([facility])Creatinine3.53(H)0.70 - 1.30 mg/dL 04/27/2025 8:36 PM [facility] ([facility])Wyjfrqz434(H)70 - 100 mg/dL 04/27/2025 8:36 PM [facility] ([facility])Calcium6.5(L)8.6 - 10.3 mg/dL 04/27/2025 8:36 PM [facility] ([facility])Anion Ucq398 - 20 mmol/L 04/27/2025 8:36 PM [facility] ([facility])eGFR17.9(L)>60.0 mL/min/1.73m* 8:36 PM [facility] ([facility])Comment:[facility]???s estimated glomerular filtration rate (eGFR) will no [...] not disproportionately affect any one group of individuals.BUN/Creatinine Ratio13.310 8:36 PM [facility] ([facility])Specimen (Source)Anatomical Location / LateralityCollection Method / VolumeCollection TimeReceived TimeBloodVenous blood specimen / Unknown Arterial Line / Cbatvck5204/27/2025 7:57 PM EDT1 8:11 PM EDT Narrative Authorizing ProviderResult TypeResult StatusZhen MURRAY BLOOD ORDERABLES Final ResultPerforming OrganizationAddressCity/State/ZIP CodePhone Number [facility]) [address] [place] [address] * Phosphorus (04/27/2025 5:38 PM EDT)ComponentValueRef RangeTest MethodAnalysis TimePerformed AtPathologist SignaturePhosphorus3.02.5 - 5.0 mg/dL04/27/2025 6:01 PM [facility] ([facility])Specimen (Source)Anatomical Location / LateralityCollection Method / VolumeCollection TimeReceived TimeBloodArterial blood specimen / Bipptkp8904/27/2025 5:38 PM EDT1 5:38 PM EDT Narrative Authorizing ProviderResult TypeResult StatusPepe MURRAY BLOOD ORDERABLES Final ResultPerforming OrganizationAddressCity/State/ZIP CodePhone Number [facility]) [address] [facility] [place] [address] * (ABNORMAL) Magnesium (04/27/2025 5:38 PM EDT)ComponentValueRef RangeTest MethodAnalysis TimePerformed AtPathologist SignatureMagnesium1.6(L)1.9 - 2.7 mg/dL04/27/2025 6:01 PM [facility] ([facility])Specimen (Source) Anatomical Location / LateralityCollection Method / VolumeCollection Time Received TimeBloodArterial blood specimen / Lhxspfz3504/27/2025 5:38 PM EDT 04/27/2025 5:38 PM EDT Narrative Authorizing ProviderResult TypeResult StatusPepe Anthony MDLAB BLOOD ORDERABLES Final ResultPerforming OrganizationAddressCity/State/ZIP CodePhone Number [facility]) [address] [facility] [place] [address] * (ABNORMAL) Basic metabolic panel (04/27/2025 5:38 PM EDT)ComponentValueRef RangeTest MethodAnalysis TimePerformed AtPathologist MjmhgrmhrTvttep574(L)136 - 145 mmol/L1 6:01 PM [facility] ([facility])Potassium4.53.5 - 5.1 mmol/L1 6:01 PM [facility] ([facility])Enlxlmnj52357 - 107 mmol/L1 6:01 PM [facility] ([facility])CO216(L)21 - 31 mmol/L 04/27/2025 6:01 PM [facility] ([facility])BUN46(H)7 - 25 mg/dL04/27/2025 6:01 [facility] ([facility])Creatinine3.57(H)0.70 - 1.30 mg/dL 04/27/2025 6:01 PM [facility] ([facility])Judzwzq952(H)70 - 100 mg/dL 04/27/2025 6:01 PM [facility] ([facility])Calcium6.7(L)8.6 - 10.3 mg/dL 04/27/2025 6:01 PM [facility] ([facility])Anion Xlu333 - 20 mmol/L 04/27/2025 6:01 [facility] ([facility])eGFR17.7(L)>60.0 mL/min/1.73m* 6:01 PM [facility] ([facility])Comment:[facility]???s estimated glomerular filtration rate (eGFR) will no [...] not disproportionately affect any one group of individuals.BUN/Creatinine Ratio12.91 6:01 PM [facility] ([facility])Specimen (Source)Anatomical Location / LateralityCollection Method / VolumeCollection TimeReceived TimeBloodArterial blood specimen / Unknown 04/27/2025 5:38 PM EDT1 5:38 PM EDT Narrative Authorizing ProviderResult TypeResult StatusAajohann Raj MDLAB BLOOD ORDERABLES Final ResultPerforming OrganizationAddressCity/State/ZIP CodePhone Number [facility]) [address] [place] [address] * (ABNORMAL) POCT glucose meter (04/27/2025 5:14 PM EDT)ComponentValueRef Range Test MethodAnalysis TimePerformed AtPathologist SignatureGlucose SFR565(H)70 - 105 mg/dL04/27/2025 5:31 PM [facility])Comment:bmendoz4 Specimen (Source)Anatomical Location / LateralityCollection Method / Volume Collection TimeReceived TimeBloodCapillary blood specimen / Smigfdv5904/27/2025 5:14 PM EDT1 5:31 PM EDT Narrative [facility] ([facility]) - 04/27/2025 5:31 PM EDT Waived Testing in the ED is performed under the ED CLIA certificate #[id number]. Authorizing ProviderResult TypeResult StatusAajohann Raj MDLAB BLOOD ORDERABLES Final ResultPerforming OrganizationAddressCity/State/ZIP CodePhone Number [facility]) [address] [place] [address] * (ABNORMAL) POCT glucose meter (04/27/2025 12:01 PM EDT)ComponentValueRef Range Test MethodAnalysis TimePerformed AtPathologist SignatureGlucose LFF271(H)70 - 105 mg/dL04/27/2025 12:12 PM [facility] ([facility])Comment:bmendoz4 Specimen (Source)Anatomical Location / LateralityCollection Method / Volume Collection TimeReceived TimeBloodCapillary blood specimen / Wbzmphn3404/27/2025 12:01 PM EDT1 12:12 PM EDT Narrative [facility] ([facility]) - 04/27/2025 12:12 PM EDT Waived Testing in the ED is performed under the ED CLIA certificate #[id number]. Authorizing ProviderResult TypeResult StatusAadil Raj MDLAB BLOOD ORDERABLES Final ResultPerforming OrganizationAddressCity/State/ZIP CodePhone Number [facility] ([facility]) [address] [place] [address] * (ABNORMAL) POCT glucose meter (04/27/2025 10:07 AM EDT)ComponentValueRef Range Test MethodAnalysis TimePerformed AtPathologist SignatureGlucose YXB118(H)70 - 105 mg/dL04/27/2025 10:18 AM [facility] ([facility])Comment:bmendoz4 Specimen (Source)Anatomical Location / LateralityCollection Method / Volume Collection TimeReceived TimeBloodCapillary blood specimen / Oaqwwxo4604/27/2025 10:07 AM EDT1 10:18 AM EDT Narrative [facility] ([facility]) - 04/27/2025 10:18 AM EDT Waived Testing in the ED is performed under the ED CLIA certificate #[id number]. Authorizing ProviderResult TypeResult StatusAadil Raj MDLAB BLOOD ORDERABLES Final ResultPerforming OrganizationAddressCity/State/ZIP CodePhone Number [facility]) [address] [place] [address] * Phosphorus (04/27/2025 5:36 AM EDT)ComponentValueRef RangeTest MethodAnalysis TimePerformed AtPathologist SignaturePhosphorus3.52.5 - 5.0 mg/dL04/27/2025 6:24 AM [facility] ([facility])Specimen (Source)Anatomical Location / LateralityCollection Method / VolumeCollection TimeReceived TimeBloodArterial blood specimen / UnknownArterial Line / Jjbqwfw4604/27/2025 5:36 AM EDT 04/27/2025 5:54 AM EDT Narrative Authorizing ProviderResult TypeResult StatusAadil Raj MDLAB BLOOD ORDERABLES Final ResultPerforming OrganizationAddressCity/State/ZIP CodePhone Number [facility] ([facility]) [address] [place] [address] * Magnesium (04/27/2025 5:36 AM EDT)ComponentValueRef RangeTest MethodAnalysis TimePerformed AtPathologist SignatureMagnesium1.91.9 - 2.7 mg/dL04/27/2025 6:24 AM [facility] ([facility])Specimen (Source)Anatomical Location / LateralityCollection Method / VolumeCollection TimeReceived TimeBloodArterial blood specimen / UnknownArterial Line / Cezfwyg2904/27/2025 5:36 AM EDT 04/27/2025 5:54 AM EDT Narrative Authorizing ProviderResult TypeResult StatusAadil Raj MURRAY BLOOD ORDERABLES Final ResultPerforming OrganizationAddressCity/State/ZIP CodePhone Number [facility] ([facility]) [address] [place] [address] * (ABNORMAL) Basic metabolic panel (04/27/2025 5:36 AM EDT)ComponentValueRef RangeTest MethodAnalysis TimePerformed AtPathologist QctodfyvcGeocjo597(L)136 - 145 mmol/L1 6:24 AM [facility] ([facility])Potassium4.53.5 - 5.1 mmol/L1 6:24 AM [facility] ([facility])Nertayvg3617 - 107 mmol/L1 6:24 AM [facility] ([facility])CO216(L)21 - 31 mmol/L 04/27/2025 6:24 AM [facility] ([facility])BUN41(H)7 - 25 mg/dL04/27/2025 6:24 AM [facility] ([facility])Creatinine3.03(H)0.70 - 1.30 mg/dL 04/27/2025 6:24 AM [facility] ([facility])Jzikamt267(H)70 - 100 mg/dL 04/27/2025 6:24 AM [facility] ([facility])Calcium7.1(L)8.6 - 10.3 mg/dL 04/27/2025 6:24 AM [facility] ([facility])Anion Rhe495 - 20 mmol/L 04/27/2025 6:24 AM [facility] ([facility])eGFR21.5(L)>60.0 mL/min/1.73m* 6:24 AM [facility] ([facility])Comment:[facility]???s estimated glomerular filtration rate (eGFR) will no [...] not disproportionately affect any one group of individuals.BUN/Creatinine Ratio13. 6:24 AM [facility] ([facility])Specimen (Source)Anatomical Location / LateralityCollection Method / VolumeCollection TimeReceived TimeBloodArterial blood specimen / Unknown Arterial Line / Jgfcazq0304/27/2025 5:36 AM EDT1 5:54 AM EDT Narrative Authorizing ProviderResult TypeResult StatusAadil Raj MURRAY BLOOD ORDERABLES Final ResultPerforming OrganizationAddressCity/State/ZIP CodePhone Number [facility] ([facility]) [address] [place] [address] * (ABNORMAL) CBC (04/27/2025 5:36 AM EDT)ComponentValueRef RangeTest Method Analysis TimePerformed AtPathologist SignatureAuto WBC8.214.00 - 10.60 10*3/uL 04/27/2025 6:24 AM [facility] ([facility])RBC3.50(L)4.20 - 5.70 10*6/uL 04/27/2025 6:24 AM [facility] ([facility])Uszdygmkeu37.2(L)13.0 - 17.0 g/dL04/27/2025 6:24 AM [facility] ([facility])Hrfvmowjmg95.0(L)39.0 - 50.0 %04/27/2025 6:24 AM [facility] ([facility])MCV91.482.0 - 98.0 fL 04/27/2025 6:24 AM [facility] ([facility])MCH32.027.0 - 33.0 pg 04/27/2025 6:24 AM [facility] ([facility])MCHC35.032.0 - 35.0 g/dL 04/27/2025 6:24 AM [facility] ([facility])RDW14.011.5 - 15.0 %04/27/2025 6:24 AM [facility] ([facility])Nbyntrown690661 - 400 10*3/uL04/27/2025 6:24 AM [facility] ([facility])Specimen (Source)Anatomical Location / LateralityCollection Method / VolumeCollection TimeReceived TimeBloodVenous blood specimen / UnknownArterial Line / Gjgjbbu6004/27/2025 5:36 AM EDT 04/27/2025 5:54 AM EDT Narrative Authorizing ProviderResult TypeResult StatusAajohann MURRAY BLOOD ORDERABLES Final ResultPerforming OrganizationAddressCity/State/ZIP CodePhone Number [facility] ([facility]) [address] [place], [place] [id number] * Co-oximetry (04/27/2025 4:25 AM EDT)ComponentValueRef RangeTest MethodAnalysis TimePerformed AtPathologist VpxmsangePzvtasbmkpkkz14.0%04/27/2025 4:31 AM EDT [facility] RESPIRATORY THERAPYTotal Qxblwpmtro45.5g/dL04/27/2025 4:31 AM [facility]TN[facility] RESPIR[facility]ORY THERAPYO2 Sat36.4%04/27/2025 4:31 AM [facility]TN[facility] Specimen (Source)Anatomical Location / LateralityCollection Method / Volume Collection TimeReceived TimeBloodMixed venous blood specimen / UnknownArterial Line / Rzvkkry6704/27/2025 4:25 AM EDT1 4:25 AM EDT Narrative Authorizing ProviderResult TypeResult StatusAadienid MURRAY BLOOD ORDERABLES Final ResultPerforming OrganizationAddressCity/State/ZIP CodePhone Number [facility]PIR[facility]ERAPY [address] [place] [address], * Phosphorus (04/26/2025 11:59 PM EDT)ComponentValueRef RangeTest MethodAnalysis TimePerformed AtPathologist SignaturePhosphorus3.42.5 - 5.0 mg/dL04/27/2025 12:48 AM [facility] ([facility])Specimen (Source)Anatomical Location / LateralityCollection Method / VolumeCollection TimeReceived TimeBloodArterial blood specimen / UnknownArterial Line / Wslpmcb7304/26/2025 11:59 PM EDT 04/27/2025 12:24 AM EDT Narrative Authorizing ProviderResult TypeResult StatusAadienid MURRAY BLOOD ORDERABLES Final ResultPerforming OrganizationAddressCity/State/ZIP CodePhone Number [facility] ([facility]) [address] [place] [address] * Magnesium (04/26/2025 11:59 PM EDT)ComponentValueRef RangeTest MethodAnalysis TimePerformed AtPathologist SignatureMagnesium2.01.9 - 2.7 mg/dL04/27/2025 12:48 AM [facility] ([facility])Specimen (Source)Anatomical Location / LateralityCollection Method / VolumeCollection TimeReceived TimeBloodArterial blood specimen / UnknownArterial Line / Psfpmva6704/26/2025 11:59 PM EDT 04/27/2025 12:24 AM EDT Narrative Authorizing ProviderResult TypeResult StatusAadienid Anthony MDLAB BLOOD ORDERABLES Final ResultPerforming OrganizationAddressCity/State/ZIP CodePhone Number [facility] ([facility]) [address] [place] [address] * (ABNORMAL) Basic metabolic panel (04/26/2025 11:59 PM EDT)ComponentValueRef RangeTest MethodAnalysis TimePerformed AtPathologist EhfkxfnzxVlpljc145(L)136 - 145 mmol/L1 12:48 AM [facility] ([facility])Potassium4.33.5 - 5.1 mmol/L1 12:48 AM [facility] ([facility])Shhahnym0293 - 107 mmol/L1 12:48 AM [facility] ([facility])CO215(L)21 - 31 mmol/L 04/27/2025 12:48 AM [facility] ([facility])BUN41(H)7 - 25 mg/dL 04/27/2025 12:48 AM [facility] ([facility])Creatinine2.92(H)0.70 - 1.30 mg/dL04/27/2025 12:48 AM [facility] ([facility])Cdeozzd074(H)70 - 100 mg/dL04/27/2025 12:48 AM [facility] ([facility])Calcium6.8(L)8.6 - 10.3 mg/dL04/27/2025 12:48 AM [facility] ([facility])Anion Mwj211 - 20 mmol/L 04/27/2025 12:48 AM [facility] ([facility])eGFR22.5(L)>60.0 mL/min/1.73m* 12:48 AM [facility] ([facility])Comment:[facility]???s estimated glomerular filtration rate (eGFR) will no [...] not disproportionately affect any one group of individuals.BUN/Creatinine Ratio14.010 12:48 AM [facility] ([facility])Specimen (Source)Anatomical Location / LateralityCollection Method / VolumeCollection TimeReceived TimeBloodArterial blood specimen / Unknown Arterial Line / Bxkizic0204/26/2025 11:59 PM EDT1 12:24 AM EDT Narrative Authorizing ProviderResult TypeResult StatusAadil Raj MURRAY BLOOD ORDERABLES Final ResultPerforming OrganizationAddressCity/State/ZIP CodePhone Number [facility] ([facility]) [address] [place] [address] * Phosphorus (04/26/2025 4:24 PM EDT)ComponentValueRef RangeTest MethodAnalysis TimePerformed AtPathologist SignaturePhosphorus2.82.5 - 5.0 mg/dL04/26/2025 4:59 PM [facility] ([facility])Specimen (Source)Anatomical Location / LateralityCollection Method / VolumeCollection TimeReceived TimeBloodArterial blood specimen / UnknownArterial Line / Gkbjzoa0704/26/2025 4:24 PM EDT 04/26/2025 4:38 PM EDT Narrative Authorizing ProviderResult TypeResult StatusAadil Raj MURRAY BLOOD ORDERABLES Final ResultPerforming OrganizationAddressCity/State/ZIP CodePhone Number [facility] ([facility]) [address] [place] [address] * (ABNORMAL) Basic metabolic panel (04/26/2025 4:24 PM EDT)ComponentValueRef RangeTest MethodAnalysis TimePerformed AtPathologist VscwcboexPsdcex966(L)136 - 145 mmol/L1 4:59 PM [facility] ([facility])Potassium4.13.5 - 5.1 mmol/L1 4:59 PM [facility] ([facility])Ebemiqie44(L)98 - 107 mmol/L1 4:59 PM [facility] ([facility])CO218(L)21 - 31 mmol/L1 4:59 PM [facility] ([facility])BUN39(H)7 - 25 mg/dL 04/26/2025 4:59 PM [facility] ([facility])Creatinine2.84(H)0.70 - 1.30 mg/dL04/26/2025 4:59 PM [facility] ([facility])Eubjfok931(H)70 - 100 mg/dL04/26/2025 4:59 PM [facility] ([facility])Calcium7.1(L)8.6 - 10.3 mg/dL04/26/2025 4:59 PM [facility] ([facility])Anion Tys096 - 20 mmol/L 04/26/2025 4:59 PM [facility] ([facility])eGFR23.3(L)>60.0 mL/min/1.73m* 4:59 PM [facility] ([facility])Comment:[facility]???s estimated glomerular filtration rate (eGFR) will no [...] not disproportionately affect any one group of individuals.BUN/Creatinine Ratio13. 4:59 PM [facility] ([facility])Specimen (Source)Anatomical Location / LateralityCollection Method / VolumeCollection TimeReceived TimeBloodArterial blood specimen / Unknown Arterial Line / Obpattj7104/26/2025 4:24 PM EDT1 4:38 PM EDT Narrative Authorizing ProviderResult TypeResult StatusAajohann MURRAY BLOOD ORDERABLES Final ResultPerforming OrganizationAddressCity/State/ZIP CodePhone Number [facility]) [address] [place] [address] * Magnesium (04/26/2025 4:24 PM EDT)ComponentValueRef RangeTest MethodAnalysis TimePerformed AtPathologist SignatureMagnesium2.11.9 - 2.7 mg/dL04/26/2025 4:59 PM [facility] ([facility])Specimen (Source)Anatomical Location / LateralityCollection Method / VolumeCollection TimeReceived TimeBloodArterial blood specimen / UnknownArterial Line / Xxsdcpl7604/26/2025 4:24 PM EDT 04/26/2025 4:38 PM EDT Narrative Authorizing ProviderResult TypeResult StatusAajohann MURRAY BLOOD ORDERABLES Final ResultPerforming OrganizationAddressCity/State/ZIP CodePhone Number [facility]) [address] [place] [address] * Urea nitrogen, urine (04/26/2025 8:40 AM EDT)ComponentValueRef RangeTest MethodAnalysis TimePerformed AtPathologist SignatureUrea Nitrogen, Rz408ai/dL 04/26/2025 9:11 AM [facility])Specimen (Source)Anatomical Location / LateralityCollection Method / VolumeCollection TimeReceived Time UrineUrine specimen obtained by clean catch procedure / UnknownNon-blood Collection / Zjapxvz1904/26/2025 8:40 AM EDT1 8:52 AM EDT Narrative Authorizing ProviderResult TypeResult StatusPepe Anthony MDLAB URINE ORDERABLES Final ResultPerforming OrganizationAddressCity/State/ZIP CodePhone Number [facility]) [address] [place] [address] * Sodium, urine, random (04/26/2025 8:40 AM EDT)ComponentValueRef RangeTest MethodAnalysis TimePerformed AtPathologist SignatureSodium, Pz44sczg/L 04/26/2025 9:11 AM [facility])Specimen (Source)Anatomical Location / LateralityCollection Method / VolumeCollection TimeReceived Time UrineUrine specimen obtained by clean catch procedure / UnknownNon-blood Collection / Clbndtk4804/26/2025 8:40 AM EDT1 8:52 AM EDT Narrative Authorizing ProviderResult TypeResult StatusAajohann MURRAY URINE ORDERABLES Final ResultPerforming OrganizationAddressty/State/ZIP CodePhone Number [facility]) [address] [place] [address] * Creatinine, urine, random (04/26/2025 8:40 AM EDT)ComponentValueRef RangeTest MethodAnalysis TimePerformed AtPathologist SignatureCreatinine, Ur83.026 - 299 mg/dL04/26/2025 9:11 AM [facility])Specimen (Source) Anatomical Location / LateralityCollection Method / VolumeCollection Time Received TimeUrineUrine specimen obtained by clean catch procedure / Unknown Non-blood Collection / Sjyelal8804/26/2025 8:40 AM EDT1 8:52 AM EDT Narrative Authorizing ProviderResult TypeResult StatusAadil Raj MURRAY URINE ORDERABLES Final ResultPerforming OrganizationAddressCity/State/ZIP CodePhone Number [facility] ([facility]) [address] [place] [address] * (ABNORMAL) Urinalysis (04/26/2025 8:40 AM EDT)ComponentValueRef RangeTest MethodAnalysis TimePerformed AtPathologist SignatureColor, UrineLight-Yellow Colorless, Yellow, Light-Pynlrz5204/26/2025 9:27 AM [facility] ([facility])Clarity, LcsyzProuzExrgb09/09/2025 9:27 AM [facility] ([facility])pH, Urine5.05.0 - 8.0 pH04/26/2025 9:27 AM [facility] ([facility])Leukocytes, LagcsIabfoxgxOuycezle17/09/2025 9:27 AM [facility] ([facility])Nitrite, RxmjuJhbwzqjcFqvefcod24/09/2025 9:27 AM [facility] ([facility])Protein, UrineNegativeNegative mg/dL04/26/2025 9:27 AM [facility] ([facility])Glucose, Cmpwl028(A)Normal mg/dL04/26/2025 9:27 AM EDT [facility] ([facility])Bilirubin, ZukhsThkiypzjZdaqebop58/09/2025 9:27 AM [facility] ([facility])Specific [place], Urine1.0131.010 - 1.030 04/26/2025 9:27 AM [facility] [facility])Ketones, UrineNegativeNegative mg/dL04/26/2025 9:27 AM [facility] ([facility])Blood, UrineNegative Hfoaqpvc99/09/2025 9:27 AM [facility] ([facility])Urobilinogen, Urine NormalNormal mg/dL04/26/2025 9:27 AM [facility] ([facility])Specimen (Source)Anatomical Location / LateralityCollection Method / VolumeCollection TimeReceived TimeUrineUrine specimen obtained by clean catch procedure / UnknownNon-blood Collection / Ckndqsl9304/26/2025 8:40 AM EDT1 8:52 AM EDT Narrative [facility] ([facility]) - 04/26/2025 9:27 AM EDT Microscopics not performed on urines with negative chemical reactions unless requested on original order. Authorizing ProviderResult TypeResult StatusAadienid Anhtony [employer] TechnologiesLAB URINE ORDERABLES Final ResultPerforming OrganizationAddressCity/State/ZIP CodePhone Number [facility]) [address] [place] [phone] * (ABNORMAL) Magnesium (04/26/2025 3:05 AM EDT)ComponentValueRef RangeTest MethodAnalysis TimePerformed AtPathologist SignatureMagnesium1.8(L)1.9 - 2.7 mg/dL04/26/2025 3:42 AM [facility] ([facility])Specimen (Source) Anatomical Location / LateralityCollection Method / VolumeCollection Time Received TimeBloodVenous blood specimen / UnknownArterial Line / Unknown 04/26/2025 3:05 AM EDT1 3:17 AM EDT Narrative Authorizing ProviderResult TypeResult StatusAadienid Anthony MDLAB BLOOD ORDERABLES Final ResultPerforming OrganizationAddressCity/State/ZIP CodePhone Number [facility]) [address] [place] [address] * (ABNORMAL) Basic metabolic panel (04/26/2025 3:05 AM EDT)ComponentValueRef RangeTest MethodAnalysis TimePerformed AtPathologist IqhrwqdypNrcslb335(L)136 - 145 mmol/L1 3:42 AM [facility] ([facility])Potassium4.23.5 - 5.1 mmol/L1 3:42 AM [facility] ([facility])Mcxmhscr74017 - 107 mmol/L1 3:42 AM [facility] ([facility])CO219(L)21 - 31 mmol/L 04/26/2025 3:42 AM [facility] ([facility])BUN40(H)7 - 25 mg/dL04/26/2025 3:42 AM [facility] ([facility])Creatinine2.83(H)0.70 - 1.30 mg/dL 04/26/2025 3:42 AM [facility] ([facility])Omomfku984(H)70 - 100 mg/dL 04/26/2025 3:42 AM [facility] ([facility])Calcium7.2(L)8.6 - 10.3 mg/dL 04/26/2025 3:42 AM [facility] ([facility])Anion Snz736 - 20 mmol/L 04/26/2025 3:42 AM [facility] ([facility])eGFR23.4(L)>60.0 mL/min/1.73m* 3:42 AM [facility] ([facility])Comment:[facility]???s estimated glomerular filtration rate (eGFR) will no [...] not disproportionately affect any one group of individuals.BUN/Creatinine Ratio14. 3:42 AM [facility] ([facility])Specimen (Source)Anatomical Location / LateralityCollection Method / VolumeCollection TimeReceived TimeBloodVenous blood specimen / Unknown Arterial Line / Pwnskqi2904/26/2025 3:05 AM EDT1 3:17 AM EDT Narrative Authorizing ProviderResult TypeResult StatusAadil Raj MURRAY BLOOD ORDERABLES Final ResultPerforming OrganizationAddressCity/State/ZIP CodePhone Number [facility] ([facility]) [address] [place] [address] * Phosphorus (04/26/2025 3:05 AM EDT)ComponentValueRef RangeTest MethodAnalysis TimePerformed AtPathologist SignaturePhosphorus2.62.5 - 5.0 mg/dL04/26/2025 3:42 AM [facility] ([facility])Specimen (Source)Anatomical Location / LateralityCollection Method / VolumeCollection TimeReceived TimeBloodVenous blood specimen / UnknownArterial Line / Tzppzol8404/26/2025 3:05 AM EDT 04/26/2025 3:17 AM EDT Narrative Authorizing ProviderResult TypeResult StatusAadil Raj MURRAY BLOOD ORDERABLES Final ResultPerforming OrganizationAddressCity/State/ZIP CodePhone Number [facility] ([facility]) [address] [place] [address] * (ABNORMAL) CBC (04/26/2025 3:05 AM EDT)ComponentValueRef RangeTest Method Analysis TimePerformed AtPathologist SignatureAuto WBC6.844.00 - 10.60 10*3/uL 04/26/2025 3:37 AM [facility] ([facility])RBC3.17(L)4.20 - 5.70 10*6/uL 04/26/2025 3:37 AM [facility] ([facility])Rgyqzcdrmj27.2(L)13.0 - 17.0 g/dL04/26/2025 3:37 AM [facility] ([facility])Mwrsltntnd09.3(L)39.0 - 50.0 %04/26/2025 3:37 AM [facility] ([facility])MCV92.482.0 - 98.0 fL 04/26/2025 3:37 AM [facility] ([facility])MCH32.227.0 - 33.0 pg 04/26/2025 3:37 AM [facility] ([facility])MCHC34.832.0 - 35.0 g/dL 04/26/2025 3:37 AM [facility] ([facility])RDW14.011.5 - 15.0 %04/26/2025 3:37 AM [facility] ([facility])Ceokxoocy462993 - 400 10*3/uL04/26/2025 3:37 AM [facility] ([facility])Specimen (Source)Anatomical Location / LateralityCollection Method / VolumeCollection TimeReceived TimeBloodVenous blood specimen / UnknownArterial Line / Agmcrez4504/26/2025 3:05 AM EDT 04/26/2025 3:17 AM EDT Narrative Authorizing ProviderResult TypeResult StatusAajohann MURRAY BLOOD ORDERABLES Final ResultPerforming OrganizationAddressCity/State/ZIP CodePhone Number [facility] ([facility]) [address] [place] [address] * Co-oximetry (04/26/2025 2:39 AM EDT)ComponentValueRef RangeTest MethodAnalysis TimePerformed AtPathologist UhkktjpguTxozaeacoowvl64.7%04/26/2025 2:41 AM EDT [facility] RESPIRATORY THERAPYTotal Lxjhoafejd82.9g/dL04/26/2025 2:41 AM [facility]PIR[facility]ORY THERAPYO2 Sat59.6%04/26/2025 2:41 AM [facility]ERAPY Specimen (Source)Anatomical Location / LateralityCollection Method / Volume Collection TimeReceived TimeBloodMixed venous blood specimen / UnknownArterial Line / Fklfise2404/26/2025 2:39 AM EDT1 2:39 AM EDT Narrative Authorizing ProviderResult TypeResult StatusAajohann MURRAY BLOOD ORDERABLES Final ResultPerforming OrganizationAddressCity/State/ZIP CodePhone Number [facility] RESPIRATORY THERAPY [address] [place] [address], * XR chest 1 view (04/25/2025 4:17 PM EDT)Anatomical RegionLateralityModality ChestComputed RadiographySpecimen (Source)Anatomical Location / Laterality Collection Method / VolumeCollection TimeReceived Time04/25/2025 4:26 PM EDT Impressions 04/25/2025 4:31 PM EDT Tip of the Witt-Shannan catheter appears to be in the right main pulmonary artery. No new acute pulmonary abnormalities displayed. Electronically signed: Ralph Mcgovern. Narrative 04/25/2025 4:31 PM EDT History: ??Assessing Witt-Shannan catheter Exam/Technique: ??Portable ??upright AP chest Comparison: ?? Chest CTA from 04/23/2025. Findings: ??The tip of the right jugular Witt-Shannan catheter appears to overlap when appropriate EKG leads, apparently in the proximal portion of the right main pulmonary artery. ?No interval change is demonstrated with no new acute pulmonary or pleural abnormalities displayed on this single. ?? Mild cardiomegaly appears unchanged. Cardiac electrical device unchanged. Procedure Note Ralph Mcgovern MD - 04/25/2025 History: Assessing Witt-Shannan catheter Exam/Technique: Portable upright AP chest Comparison: Chest CTA from 04/23/2025. Findings: The tip of the right jugular Witt-Shannan catheter appears tooverlap when appropriate EKG leads, apparently in the proximal portion of theright main pulmonary artery. No interval change is demonstrated with no new acute pulmonary orpleural abnormalities displayed on this single. Mild cardiomegaly appears unchanged. Cardiac electrical deviceunchanged. IMPRESSION: Tip of the Witt-Shannan catheter appears to be in the right main pulmonary artery. No new acute pulmonary abnormalities displayed. Electronically signed: Ralph Mcgovern. Authorizing ProviderResult TypeResult StatusAadil Raj MDIMG XR PROCEDURES Final Result * (ABNORMAL) Basic metabolic panel (04/25/2025 1:12 PM EDT)ComponentValueRef RangeTest MethodAnalysis TimePerformed AtPathologist RwihdfelgCynkgt085(L)136 - 145 mmol/L1 1:41 PM [facility] ([facility])Potassium3.4(L)3.5 - 5.1 mmol/L1 1:41 PM [facility] ([facility])Pwknkkyb4276 - 107 mmol/L1 1:41 PM [facility] ([facility])GZ03555 - 31 mmol/L 04/25/2025 1:41 PM [facility] ([facility])BUN40(H)7 - 25 mg/dL04/25/2025 1:41 PM [facility] ([facility])Creatinine2.96(H)0.70 - 1.30 mg/dL 04/25/2025 1:41 PM [facility] ([facility])Pjktadr711(H)70 - 100 mg/dL 04/25/2025 1:41 PM [facility] ([facility])Calcium7.1(L)8.6 - 10.3 mg/dL 04/25/2025 1:41 PM [facility] ([facility])Anion Mja414 - 20 mmol/L 04/25/2025 1:41 PM [facility] ([facility])eGFR22.2(L)>60.0 mL/min/1.73m* 1:41 PM [facility] ([facility])Comment:[facility]???s estimated glomerular filtration rate (eGFR) will no [...] not disproportionately affect any one group of individuals.BUN/Creatinine Ratio13. 1:41 PM [facility] ([facility])Specimen (Source)Anatomical Location / LateralityCollection Method / VolumeCollection TimeReceived TimeBloodVenous blood specimen / Unknown Arterial Line / Eefqhpa7304/25/2025 1:12 PM EDT1 1:18 PM EDT Narrative Authorizing ProviderResult TypeResult StatusAadil Raj MURRAY BLOOD ORDERABLES Final ResultPerforming OrganizationAddressCity/State/ZIP CodePhone Number [facility] ([facility]) [address] [place] [address] * Phosphorus (04/25/2025 3:22 AM EDT)ComponentValueRef RangeTest MethodAnalysis TimePerformed AtPathologist SignaturePhosphorus3.52.5 - 5.0 mg/dL04/25/2025 4:00 AM [facility] ([facility])Specimen (Source)Anatomical Location / LateralityCollection Method / VolumeCollection TimeReceived TimeBloodVenous blood specimen / UnknownArterial Line / Ewrqfzj4604/25/2025 3:22 AM EDT 04/25/2025 3:33 AM EDT Narrative Authorizing ProviderResult TypeResult StatusAajohann MURRAY BLOOD ORDERABLES Final ResultPerforming OrganizationAddressCity/State/ZIP CodePhone Number [facility] ([facility]) [address] [place] [address] * Magnesium (04/25/2025 3:22 AM EDT)ComponentValueRef RangeTest MethodAnalysis TimePerformed AtPathologist SignatureMagnesium1.91.9 - 2.7 mg/dL04/25/2025 4:00 AM [facility] ([facility])Specimen (Source)Anatomical Location / LateralityCollection Method / VolumeCollection TimeReceived TimeBloodVenous blood specimen / UnknownArterial Line / Htbyecg9404/25/2025 3:22 AM EDT 04/25/2025 3:33 AM EDT Narrative Authorizing ProviderResult TypeResult StatusOmareddy MURRAY BLOOD ORDERABLES Final ResultPerforming OrganizationAddressCity/State/ZIP CodePhone Number [facility] ([facility]) [address] [place] [address] * (ABNORMAL) CBC (04/25/2025 3:22 AM EDT)ComponentValueRef RangeTest Method Analysis TimePerformed AtPathologist SignatureAuto WBC6.724.00 - 10.60 10*3/uL 04/25/2025 3:49 AM [facility] ([facility])RBC3.24(L)4.20 - 5.70 10*6/uL 04/25/2025 3:49 AM [facility] ([facility])Iocfacrufx08.4(L)13.0 - 17.0 g/dL04/25/2025 3:49 AM [facility] ([facility])Qgtskvrixg76.2(L)39.0 - 50.0 %04/25/2025 3:49 AM [facility] ([facility])MCV93.282.0 - 98.0 fL 04/25/2025 3:49 AM [facility] ([facility])MCH32.127.0 - 33.0 pg 04/25/2025 3:49 AM [facility] ([facility])MCHC34.432.0 - 35.0 g/dL 04/25/2025 3:49 AM [facility] ([facility])RDW13.911.5 - 15.0 %04/25/2025 3:49 AM [facility] ([facility])Wxccsvzgh251356 - 400 10*3/uL04/25/2025 3:49 AM [facility] ([facility])Specimen (Source)Anatomical Location / LateralityCollection Method / VolumeCollection TimeReceived TimeBloodVenous blood specimen / UnknownArterial Line / Gegrbwt4904/25/2025 3:22 AM EDT 04/25/2025 3:33 AM EDT Narrative Authorizing ProviderResult TypeResult StatusOmar Samara KLEINLAB BLOOD ORDERABLES Final ResultPerforming OrganizationAddressCity/State/ZIP CodePhone Number [facility] ([facility]) [address] [place] [address] * (ABNORMAL) Basic metabolic panel (04/25/2025 3:22 AM EDT)ComponentValueRef RangeTest MethodAnalysis TimePerformed AtPathologist EmcufarypDuwflz724(L)136 - 145 mmol/L1 4:00 AM [facility] ([facility])Potassium3.73.5 - 5.1 mmol/L1 4:00 AM [facility] ([facility])Jmebbsuz3466 - 107 mmol/L1 4:00 AM [facility] ([facility])ME54576 - 31 mmol/L 04/25/2025 4:00 AM [facility] ([facility])BUN33(H)7 - 25 mg/dL04/25/2025 4:00 AM [facility] ([facility])Creatinine2.57(H)0.70 - 1.30 mg/dL 04/25/2025 4:00 AM [facility] ([facility])Hldyjog678(H)70 - 100 mg/dL 04/25/2025 4:00 AM [facility] ([facility])Calcium7.5(L)8.6 - 10.3 mg/dL 04/25/2025 4:00 AM [facility] ([facility])Anion Zpn131 - 20 mmol/L 04/25/2025 4:00 AM [facility] ([facility])eGFR26.2(L)>60.0 mL/min/1.73m* 4:00 AM [facility] ([facility])Comment:[facility]???s estimated glomerular filtration rate (eGFR) will no [...] not disproportionately affect any one group of individuals.BUN/Creatinine Ratio12.81 4:00 AM [facility] ([facility])Specimen (Source)Anatomical Location / LateralityCollection Method / VolumeCollection TimeReceived TimeBloodVenous blood specimen / Unknown Arterial Line / Haimqrj9204/25/2025 3:22 AM EDT1 3:33 AM EDT Narrative Authorizing ProviderResult TypeResult StatusOmar Samara MURRAY BLOOD ORDERABLES Final ResultPerforming OrganizationAddressCity/State/ZIP CodePhone Number [facility] ([facility]) [address] [place] [address] * RIGHT HEART CATH, SWAN (FLOW DIRECTED CATH) INSERTION (04/24/2025 3:42 PM EDT) Anatomical RegionLateralityModalityOtherSpecimen (Source)Anatomical Location / LateralityCollection Method / VolumeCollection TimeReceived Time Narrative 04/24/2025 4:05 PM EDT PROCEDURE PHYSICIAN: Hay William MD . Indications: Kristy Doherty is a 69 y.o. male with ongoing hypotension. ?? His echocardiogram shows reduced left ventricular and right ventricular systolic function. ??He was referred for right heart catheterization to guide of management. Assistants: None. Procedure Performed: Right heart catheterization. Placement of a PAPER SORTER AND COUNTER Witt-Shannan catheter for hemodynamic monitoring. Access into the right internal jugular vein under ultrasound guidance. Methods: ??Procedure was explained to the patient with risks and benefits; he signed informed consent. ??he was brought to the mushroom laborer in a fasting state. The right neck area was prepped and draped in usual fashion. Micropuncture technique was used for access under ultrasound guidance into the right internal jugular vein. ??A 6-Cambodian x 11 cm sheath was placed. ?? A 6-Cambodian Carrasquillo catheter was used for right heart catheterization and measurement of pressures and calculation of cardiac output using the estimated [place] method. ??Carrasquillo catheter was removed. Over a wire to the access sheath was upsized to a 9 Cambodian introducer sheath. ??A PAPER SORTER AND COUNTER Witt-Shannan catheter was advanced with the aid of a V18 wire and the distal end of the catheter was advanced to the distal segment of the right pulmonary artery. ??The Witt-Shannan catheter was secured in place. he tolerated the procedure well and was transferred back to the hospital room. Hemodynamic Data: ?? RA: 18 RV: 34/7, 16 PA: 37/24 [...] with biventricular failure. Successful placement of a PAPER SORTER AND COUNTER Witt-Shannan catheter to guide management of heart failure. Plan: Patient will be started on intravenous inotropic therapy. Further recommendations per inpatient Cardiology service. Hay William MD Study Details Other hypotension [I95.89], Right ventricular dysfunction [I51.9] Authorizing ProviderResult TypeResult StatusAdamartha Nettles CNPCV CARDIAC CATH PROCEDURESFinal Result * (ABNORMAL) Lipid panel (04/24/2025 4:07 AM EDT)ComponentValueRef RangeTest MethodAnalysis TimePerformed AtPathologist AkxthxibgCvookcmicschx63<150 mg/dL 04/24/2025 2:39 PM [facility] ([facility])Comment: TRIGLYCERIDE REFERENCE RANGE: 20 YEARS AND OLDER ?CARDIOVASCULAR RISK LESS THAN 150 mg/dL ? LOW RISK 150 TO 199 mg/dL ?BORDERLINE RISK 200 mg/dL AND GREATER ? HIGH RISK Viejafvjwak09(L)120 - 200 mg/dL04/24/2025 2:39 PM [facility] ([facility]) LDL Jclvvjerup112 - 160 mg/dL04/24/2025 2:39 PM [facility] ([facility])HDL 2923 - 92 mg/dL04/24/2025 2:39 PM [facility] ([facility])Non HDL Fyvomugttjn8294/07/2025 2:39 PM [facility] ([facility])Total VLDL-C150 - 40 mg/dL04/24/2025 2:39 PM [facility] ([facility])Cholesterol/HDL Ratio3.4 mg/dL04/24/2025 2:39 PM [facility] ([facility])Specimen (Source)Anatomical Location / LateralityCollection Method / VolumeCollection TimeReceived Time BloodVenous blood specimen / UnknownVenipuncture / Uqpbkew3604/24/2025 4:07 AM EDT 04/24/2025 4:17 AM EDT Narrative Authorizing ProviderResult TypeResult StatusBebo Dominguez MDLAB BLOOD ORDERABLES Final ResultPerforming OrganizationAddressCity/State/ZIP CodePhone Number [facility] ([facility]) [address] [place] [address] * Magnesium (04/24/2025 4:07 AM EDT)ComponentValueRef RangeTest MethodAnalysis TimePerformed AtPathologist SignatureMagnesium1.91.9 - 2.7 mg/dL04/24/2025 5:29 AM [facility] ([facility])Specimen (Source)Anatomical Location / LateralityCollection Method / VolumeCollection TimeReceived TimeBloodVenous blood specimen / UnknownVenipuncture / Ioincxe7204/24/2025 4:07 AM EDT1 4:17 AM EDT Narrative Authorizing ProviderResult TypeResult StatusOmar Samara MURRAY BLOOD ORDERABLES Final ResultPerforming OrganizationAddressCity/State/ZIP CodePhone Number [facility] ([facility]) [address] [place] [address] * (ABNORMAL) CBC (04/24/2025 4:07 AM EDT)ComponentValueRef RangeTest Method Analysis TimePerformed AtPathologist SignatureAuto WBC5.704.00 - 10.60 10*3/uL 04/24/2025 4:37 AM [facility] ([facility])RBC3.52(L)4.20 - 5.70 10*6/uL 04/24/2025 4:37 AM [facility] ([facility])Vyvgfdfmgc20.2(L)13.0 - 17.0 g/dL04/24/2025 4:37 AM [facility] ([facility])Slwbdiadsb77.1(L)39.0 - 50.0 %04/24/2025 4:37 AM [facility] ([facility])MCV94.082.0 - 98.0 fL 04/24/2025 4:37 AM [facility] ([facility])MCH31.827.0 - 33.0 pg 04/24/2025 4:37 AM [facility] ([facility])MCHC33.832.0 - 35.0 g/dL 04/24/2025 4:37 AM [facility] ([facility])RDW13.911.5 - 15.0 %04/24/2025 4:37 AM [facility] ([facility])Univnqnzj416684 - 400 10*3/uL04/24/2025 4:37 AM [facility] ([facility])Specimen (Source)Anatomical Location / LateralityCollection Method / VolumeCollection TimeReceived TimeBloodVenous blood specimen / UnknownVenipuncture / Aftyiih5904/24/2025 4:07 AM EDT1 4:20 AM EDT Narrative Authorizing ProviderResult TypeResult StatusOmar Samara MURRAY BLOOD ORDERABLES Final ResultPerforming OrganizationAddressCity/State/ZIP CodePhone Number [facility] ([facility]) [address] [place] [address] * (ABNORMAL) Basic metabolic panel (04/24/2025 4:07 AM EDT)ComponentValueRef RangeTest MethodAnalysis TimePerformed AtPathologist SbdkieikjNezija799(L)136 - 145 mmol/L1 5:29 AM [facility] ([facility])Potassium3.93.5 - 5.1 mmol/L1 5:29 AM [facility] ([facility])Hhdqetve76826 - 107 mmol/L1 5:29 AM [facility] ([facility])CO219(L)21 - 31 mmol/L 04/24/2025 5:29 AM [facility] ([facility])MOY757 - 25 mg/dL04/24/2025 5:29 AM [facility] ([facility])Creatinine1.45(H)0.70 - 1.30 mg/dL 04/24/2025 5:29 AM [facility] ([facility])Mqrccpx041(H)70 - 100 mg/dL 04/24/2025 5:29 AM [facility] ([facility])Calcium8.0(L)8.6 - 10.3 mg/dL 04/24/2025 5:29 AM [facility] ([facility])Anion Mzu473 - 20 mmol/L 04/24/2025 5:29 AM [facility] ([facility])eGFR52.2(L)>60.0 mL/min/1.73m* 5:29 AM [facility] ([facility])Comment:[facility]???s estimated glomerular filtration rate (eGFR) will no [...] not disproportionately affect any one group of individuals.BUN/Creatinine Ratio16. 5:29 AM [facility] ([place])Specimen (Source)Anatomical Location / LateralityCollection Method / VolumeCollection TimeReceived TimeBloodVenous blood specimen / Unknown Venipuncture / [id number]/24/2025 4:07 AM EDT1 4:17 AM EDT Narrative Authorizing ProviderResult TypeResult StatusOmar Samara MURRAY BLOOD ORDERABLES Final ResultPerforming OrganizationAddressCity/State/ZIP CodePhone Number [facility] ([place]) [address] [place] [address] * CTA Chest W IV Contrast (04/23/2025 4:47 PM EDT)Anatomical RegionLaterality ModalityBody, ChestComputed TomographySpecimen (Source)Anatomical Location / LateralityCollection Method / VolumeCollection TimeReceived Time04/23/2025 5:24 PM EDT Impressions 04/23/2025 5:57 PM [...] findings inthis report. Electronically signed: Howie Velasquez. Authorizing ProviderResult TypeResult StatusOmar Samara KLEINIMPurvi CT PROCEDURESFinal Result * LIMITED ECHOCARDIOGRAM (TTE) W/ LTD DOPPLER AND COLOR FLOW (04/23/2025 7:56 AM EDT)Anatomical RegionLateralityModalityOtherSpecimen (Source)Anatomical Location / LateralityCollection Method / VolumeCollection TimeReceived Time 04/23/2025 7:26 AM EDT Narrative 04/23/2025 9:27 AM EDT 1 1 [facility] Heart Station [address] [place] [address] [phone] (fax) Echocardiogram-[facility] Name: KRISTY DOHERTY Study Date: 04/23/2025 07:26 AM B/P: 90 mmHg/74 mmHg HR: 111 bpm Date of : 1955 [facility]: [facility] [...] minimal pericardial effusion. Procedure Staff Reading Group: [facility] Referring Physician: RUDY KING ??Gas Inspector: June Brumfield, DANIELECS, RVT, RN, BSN ??Ordering Physician: FANI DENNEY ?? Wall Motion Scores -1 - hyperkinesia, 0 - not evaluated, 1 - normal, 2 - hypokinesia, 3 - akinesia, 4 - dyskinesia Procedure Note Mitesh Vernon MD - 04/23/2025 1 1 [facility] Heart Station [address] [place] [phone] (fax) Echocardiogram-[facility] Name: KRISTY DOHERTY Study Date: 04/23/2025 07:26 AM B/P: 90 mmHg/74 mmHg HR: 111 bpm Date of : 1955 Location: [facility] [...] minimal pericardial effusion. Procedure Staff Reading Group: [facility] Referring Physician: RUDY KING Gas Inspector: June Brumfield RDCS, RVT, RN, BSN Ordering Physician: FANI DENNEY Wall Motion Scores -1 - hyperkinesia, 0 - not evaluated, 1 - normal, 2 - hypokinesia, 3 - akinesia, 4 - dyskinesia Authorizing ProviderResult TypeResult StatusSaceleste Denney [facility] ECHO PROCEDURES Final Result * (ABNORMAL) Magnesium (04/23/2025 5:02 AM EDT)ComponentValueRef RangeTest MethodAnalysis TimePerformed AtPathologist SignatureMagnesium1.6(L)1.9 - 2.7 mg/dL04/23/2025 5:58 AM [facility]TN[facility] ([facility])Specimen (Source) Anatomical Location / LateralityCollection Method / VolumeCollection Time Received TimeBloodVenous blood specimen / UnknownVenipuncture / Unknown 04/23/2025 5:02 AM EDT1 5:22 AM EDT Narrative Authorizing ProviderResult TypeResult StatusZaid Eliud MURRAY BLOOD ORDERABLES Final ResultPerforming OrganizationAddressCity/State/ZIP CodePhone Number [facility] ([facility]) [address] [place] [address] * (ABNORMAL) CBC auto differential (04/23/2025 5:02 AM EDT)ComponentValueRef RangeTest MethodAnalysis TimePerformed AtPathologist SignatureAuto WBC5.604.00 - 10.60 10*3/uL04/23/2025 5:32 AM [facility] ([facility])RBC3.73(L)4.20 - 5.70 10*6/uL04/23/2025 5:32 AM [facility] ([facility])Wkmwtkkmaa89.9 (L)13.0 - 17.0 g/dL04/23/2025 5:32 AM [facility] ([facility])Hematocrit 35.0(L)39.0 - 50.0 %04/23/2025 5:32 AM [facility] ([facility])MCV93.8 82.0 - 98.0 fL04/23/2025 5:32 AM [facility] ([facility])MCH31.927.0 - 33.0 pg04/23/2025 5:32 AM [facility] ([facility])MCHC34.032.0 - 35.0 g/dL04/23/2025 5:32 AM [facility] ([facility])RDW13.911.5 - 15.0 % 04/23/2025 5:32 AM [facility] ([facility])Neutrophils %57.140.0 - 72.0 % 04/23/2025 5:32 AM [facility] ([facility])Lymphocytes %22.520.0 - 45.0 % 04/23/2025 5:32 AM [facility] ([facility])Monocytes %17.7(H)5.0 - 12.0 % 04/23/2025 5:32 AM [facility] ([facility])Eosinophils %1.80.0 - 6.0 % 04/23/2025 5:32 AM [facility] ([facility])Basophils %0.50.0 - 1.0 % 04/23/2025 5:32 AM [facility] ([facility])Neutrophils Absolute3.201.60 - 7.60 10*3/uL04/23/2025 5:32 AM [facility] ([facility])Lymphocytes Absolute1.261.20 - 4.00 10*3/uL04/23/2025 5:32 AM [facility] ([facility])Monocytes Absolute0.990.10 - 1.00 10*3/uL04/23/2025 5:32 AM [facility] ([facility])Eosinophils Absolute0.100.00 - 0.50 10*3/uL04/23/2025 5:32 AM [facility] ([facility])Basophils Absolute0.030.00 - 0.20 10*3/uL 04/23/2025 5:32 AM [facility] ([facility])Vmbmsnnwe278891 - 400 10*3/uL 04/23/2025 5:32 AM [facility] ([facility])nRBC %0.00 %04/23/2025 5:32 AM [facility] ([facility])Immature Granulocytes %0.40.0 - 1.0 %04/23/2025 5:32 AM [facility] ([facility])Immature Granulocytes Absolute0.020.00 - 0.20 10*3/uL04/23/2025 5:32 AM [facility])Specimen (Source) Anatomical Location / LateralityCollection Method / VolumeCollection Time Received TimeBloodVenous blood specimen / UnknownVenipuncture / Unknown 04/23/2025 5:02 AM EDT1 5:22 AM EDT Narrative Authorizing ProviderResult TypeResult StatusYanely Archer [facility] BLOOD ORDERABLESFinal ResultPerforming OrganizationAddressCity/State/ZIP CodePhone Number [facility] ([facility]) [address] [place] [address] * (ABNORMAL) Comprehensive metabolic panel (04/23/2025 5:02 AM EDT)Component ValueRef RangeTest MethodAnalysis TimePerformed AtPathologist SignatureSodium 134(L)136 - 145 mmol/L1 5:58 AM [facility] ([facility]) Potassium4.13.5 - 5.1 mmol/L1 5:58 AM [facility] ([facility]) Jyspbzwp6902 - 107 mmol/L1 5:58 AM [facility] ([facility])CO226 21 - 31 mmol/L1 5:58 AM [facility] ([facility])Anion Fqg404 - 20 mmol/L1 5:58 AM [facility] ([facility])JYL145 - 25 mg/dL 04/23/2025 5:58 AM [facility] ([facility])Creatinine1.110.70 - 1.30 mg/dL04/23/2025 5:58 AM [facility] ([facility])BUN/Creatinine Ratio16.2 04/23/2025 5:58 AM [facility] ([facility])Poskepa564(H)70 - 100 mg/dL 04/23/2025 5:58 AM [facility] ([facility])Calcium8.4(L)8.6 - 10.3 mg/dL 04/23/2025 5:58 AM [facility] ([facility])YIB6698 - 39 U/L1 5:58 AM [facility] ([facility])ALT (SGPT)187 - 52 U/L1 5:58 AM [facility] ([facility])Alkaline Fievmiznckg5848 - 104 U/L1 5:58 AM [facility] ([facility])Total Protein6.86.0 - 8.3 g/dL04/23/2025 5:58 AM [facility] ([facility])Albumin3.73.5 - 5.7 g/dL10/12/2024 5:58 AM [facility] ([facility])Total Bilirubin0.50.3 - 1.0 mg/dL04/23/2025 5:58 AM [facility] ([facility])eGFR71.9>60.0 mL/min/1.73m* 5:58 AM [facility] ([facility])Comment:The [facility]???s estimated glomerular filtration rate (eGFR) will no [...] not disproportionately affect any one group of ind ividuals.Specimen (Source)Anatomical Location / LateralityCollection Method / VolumeCollection TimeReceived TimeBloodVenous blood specimen / Unknown Venipuncture / Tnpjyzw1504/23/2025 5:02 AM EDT1 5:22 AM EDT Narrative Authorizing ProviderResult TypeResult StatusYanely Archer [facility] BLOOD ORDERABLESFinal ResultPerforming OrganizationAddressCity/State/ZIP CodePhone Number [facility] ([facility]) [address] [place] [address] * (ABNORMAL) C-reactive protein (04/23/2025 5:02 AM EDT)ComponentValueRef Range Test MethodAnalysis TimePerformed AtPathologist OgwumeukdGJR94.4(H)<=5.0 mg/L 04/23/2025 8:57 AM [facility] ([facility])Comment:Testing performed using a new methodology, turbidimetry. Normal ranges have been updated. Old normal range was <8 mg/L.Specimen (Source)Anatomical Location / Laterality Collection Method / VolumeCollection TimeReceived TimeBloodVenous blood specimen / UnknownVenipuncture / Tpumcrs3704/23/2025 5:02 AM EDT1 5:22 AM EDT Narrative Authorizing ProviderResult TypeResult StatusYanely Archer CNPLAB BLOOD ORDERABLESFinal ResultPerforming OrganizationAddressCity/State/ZIP CodePhone Number [facility] ([facility]) [address] [place] [address] * CT cervical spine wo IV contrast (04/23/2025 3:59 AM EDT)Anatomical Region LateralityModalitySpine, C-spineComputed TomographySpecimen (Source)Anatomical Location / LateralityCollection Method / VolumeCollection TimeReceived Time 04/23/2025 4:07 AM EDT Impressions 04/23/2025 4:21 AM EDT No evidence of acute fracture or traumatic malalignment. Approved by:Phill Orellana 4:14 AM. IAydne MD,have reviewed the image(s) and agree with [...] The cervical alignment is maintained without spondylolisthesis. ??The vertebral body heights are preserved. ??Multilevel degenerative disc disease with disc space narrowing most prominently at C6-C7. ??Multilevel facet degenerative changes which contribute to at least moderate bony neural foraminal stenosis at C3-C4 on the right. ?? No acute fracture is identified. ??The craniocervical junction and atlantoaxial joint are intact. ??No destructive osseous lesion. The prevertebral soft tissues are within normal limits. The paraspinous soft tissues are within normal limits. ??Strandy left apical airspace opacity. Procedure Note Ayden [...] this report. Electronically signed: Ayden Corbin MD. Authorizing ProviderResult TypeResult StatusIdrees Adam KLEINPurvi CT PROCEDURES Final Result * CT head wo IV contrast (04/23/2025 3:59 AM EDT)Anatomical RegionLaterality ModalityHead, NeckComputed TomographySpecimen (Source)Anatomical Location / LateralityCollection Method / VolumeCollection TimeReceived Time04/23/2025 4:00 AM EDT Impressions 04/23/2025 4:21 AM [...] None. TECHNIQUE: CT brain without intravenous contrast. ??Automated exposure control was utilized. ??All CT scans at this facility use dose modulation, iterative reconstruction, and/or weight based dosing when appropriate to reduce radiation dose to as low as reasonably achievable. FINDINGS: No acute, territorial region of diminished acosta-white differentiation. No evidence of acute intracranial hemorrhage. No mass effect, shift of midline structures, or extra-axial fluid collection. Mild global parenchymal volume loss. ??Mild heterogeneity of the deep, periventricular white matter [...] this report. Electronically signed: Ayden Corbin MD. Authorizing ProviderResult TypeResult StatusIdrees Adam VELA CT PROCEDURES Final Result * ECG 12 lead (04/23/2025 3:34 AM EDT)ComponentValueRef RangeTest MethodAnalysis TimePerformed AtPathologist SignatureVentricular Avrb345PNZBE MUSEAtrial Rate 120BPMGE MUSEPR Bgrqdgpm989tgFQ MUSEQRS RYJVFPUL715lzQT MUSEQT Nwkphplp497muGV MUSEQTC CALCULATION(BAZETT)415msGE MUSEP Qdkh46gvrpfgdNY MUSER-Utjz50jsakceg GE MUSET Wave Eoss964wfupzqfOJ MUSESpecimen (Source)Anatomical Location / LateralityCollection Method / VolumeCollection TimeReceived Time04/23/2025 3:16 AM EDT1 8:14 AM EDT Impressions GE MUSE - [...] SAMER J. (57) on 04/23/2025 8:14:48 AM Authorizing ProviderResult TypeResult StatusZaid Eliud KLEINECG ORDERABLESFinal ResultPerforming OrganizationAddressCity/State/ZIP CodePhone Number GE MUSE * LIMITED ECHOCARDIOGRAM (TTE) W/ LTD DOPPLER AND COLOR FLOW (04/20/2025 1:51 PM EDT)Anatomical RegionLateralityModalityOtherSpecimen (Source)Anatomical Location / LateralityCollection Method / VolumeCollection TimeReceived Time 04/20/2025 1:28 PM EDT Narrative 04/20/2025 5:38 PM EDT 1 1 [facility] Heart Station [address] [place] [address] [phone] (fax) Echocardiogram-[facility] Name: KRISTY DOHERTY Study Date: 04/20/2025 01:28 PM B/P: 83 mmHg/58 mmHg HR: 96 bpm Date of : 1955 Location: [facility] Height: 68 in. Age: 69 year(s) Patient Room: [facility] Weight: 179 lb. Gender: Male Patient Status: [...] No pericardial effusion. Procedure Staff Reading Group: [facility] Referring Physician: RUDY KING ??Gas Inspector: June Brumfield RDCS, RVT, RN, BSN ??Ordering Physician: VENU SAMANIEGO Wall Motion Scores -1 - hyperkinesia, 0 - not evaluated, 1 - normal, 2 - hypokinesia, 3 - akinesia, 4 - dyskinesia Procedure Note Mitesh Vernon MD - 04/20/2025 1 1 [facility] Heart Station [address] [place] [address] [phone] (fax) Echocardiogram-[facility] Name: KRISTY DOHERTY Study Date: 04/20/2025 01:28 PM B/P: 83 mmHg/58 mmHg HR: 96 bpm Date of : 1955 Location: [facility] [...] No pericardial effusion. Procedure Staff Reading Group: [facility] Referring Physician: RUDY KING Gas Inspector: June Brumfield, DEAN, RVT, RN, BSN Ordering Physician: VENU SAMANIEGO Wall Motion Scores -1 - hyperkinesia, 0 - not evaluated, 1 - normal, 2 - hypokinesia, 3 - akinesia, 4 - dyskinesia Authorizing ProviderResult TypeResult StatusChrisfrancesco Samaniego [facility] ECHO PROCEDURESFinal Result * Osmolality (04/20/2025 12:25 PM EDT)ComponentValueRef RangeTest MethodAnalysis TimePerformed AtPathologist KfqnsddztYvhsvyhoak972105 - 295 mOsm/kg04/20/2025 7:48 PM EDFLOWER [facility] LABComment:Test Performed by [employer] [address] [place] [id number] - Released 04/20/2025 19:48Specimen (Source)Anatomical Location / LateralityCollection Method / VolumeCollection TimeReceived TimeBloodVenous blood specimen / UnknownVenipuncture / Unknown 04/20/2025 12:25 PM EDT1 12:56 PM EDT Narrative Authorizing ProviderResult TypeResult StatusBenedict MURRAY BLOOD ORDERABLES Final ResultPerforming OrganizationAddressCity/State/ZIP CodePhone Number [facility] [address] [place] [address] * Blood culture, peripheral #2 (04/20/2025 10:09 AM EDT)ComponentValueRef Range Test MethodAnalysis TimePerformed AtPathologist SignatureBlood CultureNo growth at 5 days FLORA 04/25/2025 12:01 PM [facility]TD[facility] ([facility])Specimen (Source)Anatomical Location / LateralityCollection Method / VolumeCollection TimeReceived TimeBlood Venous blood specimen / UnknownVenipuncture / Oxzwnmk5304/20/2025 10:09 AM EDT 04/20/2025 12:00 PM EDT Narrative Authorizing ProviderResult TypeResult Ta MURRAY MICROBIOLOGY - GENERAL ORDERABLESFinal ResultPerforming OrganizationAddressCity/State/ZIP Code Phone Number [facility] ([facility]) [address] [place] [address] * Blood culture, peripheral #1 (04/20/2025 10:09 AM EDT)ComponentValueRef Range Test MethodAnalysis TimePerformed AtPathologist SignatureBlood CultureNo growth at 5 days FLORA 04/25/2025 12:01 PM [facility] ([facility])Specimen (Source)Anatomical Location / LateralityCollection Method / VolumeCollection TimeReceived TimeBlood Venous blood specimen / UnknownVenipuncture / Ilefjrx5104/20/2025 10:09 AM EDT 04/20/2025 12:00 PM EDT Narrative Authorizing ProviderResult TypeResult StatusOmar Samara MURRAY MICROBIOLOGY - GENERAL ORDERABLESFinal ResultPerforming OrganizationAddressCity/State/ZIP Code Phone Number [facility] ([facility]) [address] [place] [address] * Cortisol (04/20/2025 5:15 AM EDT)ComponentValueRef RangeTest MethodAnalysis TimePerformed AtPathologist CyqyujddkRsdwqhas94.26 - 23 ug/dL04/20/2025 12:47 PM [facility] ([facility])Specimen (Source)Anatomical Location / LateralityCollection Method / VolumeCollection TimeReceived TimeBloodVenous blood specimen / UnknownVenipuncture / Nmsgrxs0604/20/2025 5:15 AM EDT1 5:22 AM EDT Narrative Authorizing ProviderResult TypeResult StatusBenedict UMRRAY BLOOD ORDERABLES Final ResultPerforming OrganizationAddressCity/State/ZIP CodePhone Number [facility] ([facility]) [address] [place] [address] * (ABNORMAL) CBC (04/20/2025 5:15 AM EDT)ComponentValueRef RangeTest Method Analysis TimePerformed AtPathologist SignatureAuto WBC7.504.00 - 10.60 10*3/uL 04/20/2025 5:32 AM [facility] ([facility])RBC3.75(L)4.20 - 5.70 10*6/uL 04/20/2025 5:32 AM [facility] ([facility])Zseeyzlpwd95.1(L)13.0 - 17.0 g/dL04/20/2025 5:32 AM [facility] ([facility])Qnvwuiyiro48.0(L)39.0 - 50.0 %04/20/2025 5:32 AM [facility] ([facility])MCV90.782.0 - 98.0 fL 04/20/2025 5:32 AM [facility] ([facility])MCH32.327.0 - 33.0 pg 04/20/2025 5:32 AM [facility] ([facility])MCHC35.6(H)32.0 - 35.0 g/dL 04/20/2025 5:32 AM [facility] ([facility])RDW13.911.5 - 15.0 %04/20/2025 5:32 AM [facility] ([facility])Xkdycvmei739765 - 400 10*3/uL04/20/2025 5:32 AM [facility] ([facility])Specimen (Source)Anatomical Location / LateralityCollection Method / VolumeCollection TimeReceived TimeBloodVenous blood specimen / UnknownVenipuncture / Uqgtaek2804/20/2025 5:15 AM EDT1 5:22 AM EDT Narrative Authorizing ProviderResult TypeResult StatusChristopher Laurent MDLAB BLOOD ORDERABLESFinal ResultPerforming OrganizationAddressCity/State/ZIP CodePhone Number [facility] ([facility]) [address] [place] [address] * (ABNORMAL) Basic metabolic panel (04/20/2025 5:15 AM EDT)ComponentValueRef RangeTest MethodAnalysis TimePerformed AtPathologist GodocpxurWksiul121(L)136 - 145 mmol/L1 6:42 AM [facility] ([facility])Potassium3.93.5 - 5.1 mmol/L1 6:42 AM [facility] ([facility])Ocrasiyg65(L)98 - 107 mmol/L1 6:42 AM [facility] ([facility])DA26038 - 31 mmol/L 04/20/2025 6:42 AM [facility] ([facility])GPM741 - 25 mg/dL04/20/2025 6:42 AM [facility] ([facility])Creatinine0.940.70 - 1.30 mg/dL04/20/2025 6:42 AM [facility] ([facility])Fdednzo018(H)70 - 100 mg/dL04/20/2025 6:42 AM [facility] ([facility])Calcium8.88.6 - 10.3 mg/dL04/20/2025 6:42 AM [facility] ([facility])Anion Zga488 - 20 mmol/L1 6:42 AM [facility] ([facility])eGFR87.8>60.0 mL/min/1.73m* 6:42 AM [facility] ([facility])Comment:[facility]???s estimated glomerular filtration rate (eGFR) will no [...] not disproportionately affect any one group of ind ividuals.BUN/Creatinine Ratio17. 6:42 AM [facility] ([facility])Specimen (Source)Anatomical Location / LateralityCollection Method / VolumeCollection TimeReceived TimeBloodVenous blood specimen / Unknown Venipuncture / Kgryefp0904/20/2025 5:15 AM EDT1 5:22 AM EDT Narrative Authorizing ProviderResult TypeResult StatusChristopher Laurent MURRAY BLOOD ORDERABLESFinal ResultPerforming OrganizationAddressCity/State/ZIP CodePhone Number [facility] ([facility]) [address] [place] [address] * Sodium, urine, random (04/19/2025 8:28 PM EDT)ComponentValueRef RangeTest MethodAnalysis TimePerformed AtPathologist SignatureSodium, Op87tfrv/L 04/19/2025 8:54 PM EDTDZILTH-[facility] ([facility])Specimen (Source)Anatomical Location / LateralityCollection Method / VolumeCollection TimeReceived Time UrineUrine specimen obtained by clean catch procedure / UnknownNon-blood Collection / Tbbldtz3804/19/2025 8:28 PM EDT1 8:39 PM EDT Narrative Authorizing ProviderResult TypeResult StatusChristopher Laurent MURRAY URINE ORDERABLESFinal ResultPerforming OrganizationAddressCity/State/ZIP CodePhone Number [facility] ([facility]) [address] [place] [address] * ECG 12 lead (04/19/2025 6:35 PM EDT)ComponentValueRef RangeTest MethodAnalysis TimePerformed AtPathologist SignatureVentricular Xywy314QCEGH MUSEAtrial Rate 112BPMGE MUSEPR Xzgklfdp923sbHW MUSEQRS KQYUTOVD299qrNH MUSEQT Gjnloeec661iqGN MUSEQTC CALCULATION(BAZETT)466msGE MUSEP Pfxk18ikaeqffTA MUSER-Fhpd32oigrkcj GE MUSET Wave Uvpl11fqfevezBH MUSESpecimen (Source)Anatomical Location / LateralityCollection Method / VolumeCollection TimeReceived Time04/19/2025 6:24 PM EDT1 7:43 AM EDT Impressions GE MUSE - [...] Bobo Raymond (80) on 04/20/2025 7:43:00 AM Authorizing ProviderResult TypeResult StatusVenu Samaniego MDECG ORDERABLES Final ResultPerforming OrganizationAddressCity/State/ZIP CodePhone Number [facility] * (ABNORMAL) Osmolality (04/19/2025 6:26 PM EDT)ComponentValueRef RangeTest MethodAnalysis TimePerformed AtPathologist MsrmzulcuMbpprxhfrh554(L)275 - 295 mOsm/kg04/20/2025 3:14 PM EDFLOWER HOS[facility] LABComment:Test Performed by [employer] Alex and Ani [address] [place] [address] - Eyozivcz 09/2024 15:14Specimen (Source)Anatomical Location / LateralityCollection Method / VolumeCollection TimeReceived TimeBloodVenous blood specimen / Unknown Venipuncture / Ijeuipe3004/19/2025 6:26 PM EDT1 6:36 PM EDT Narrative Authorizing ProviderResult TypeResult StatusVenu Samaniego MDLAB BLOOD ORDERABLESFinal ResultPerforming OrganizationAddressCity/State/ZIP CodePhone Number [facility] [address] [place] [address] * (ABNORMAL) B-type natriuretic peptide (04/19/2025 6:25 PM EDT)ComponentValue Ref RangeTest MethodAnalysis TimePerformed AtPathologist XtpqpheueWBR931(H)0 - 100 pg/mL04/19/2025 7:07 PM EDTDZILTH[facility] ([facility])Specimen (Source) Anatomical Location / LateralityCollection Method / VolumeCollection Time Received TimeBloodVenous blood specimen / UnknownVenipuncture / Unknown 04/19/2025 6:25 PM EDT1 6:36 PM EDT Narrative Authorizing ProviderResult TypeResult StatusVenu Samaniego MDLAB BLOOD ORDERABLESFinal ResultPerforming OrganizationAddressCity/State/ZIP CodePhone Number [facility] ([facility]) [address] [place], [place] [id number] * LIMITED ECHO (TTE) (04/19/2025 3:37 PM EDT)Anatomical RegionLateralityModality OtherSpecimen (Source)Anatomical Location / LateralityCollection Method / VolumeCollection TimeReceived Time04/19/2025 2:13 PM EDT Narrative 04/19/2025 4:30 PM EDT 1 1 [place] [facility] Heart Station [address] [facility] [place] [address] (fax) Echocardiogram-[facility] Name: KRISTY DOHETRY Study Date: 04/19/2025 02:13 PM B/P: / HR: Date of : 1955 Location: [facility] Height: 68 in. Age: 69 year(s) Patient Room: 3183 Weight: 182 lb. Gender: Male Patient Status: InPt BSA: 1.96 m2 Indication: pericardialeffusion, h/o 35mm Watchman FLX Examination: Limited Echo Image Quality: Fair Findings Pericardium: Moderate pericardial effusion baseline. Post pericardiocentesis there is minimal pericardial effusion. Procedure Staff Reading Group: [facility] Referring Physician: RUDY KING ??Gas Inspector: SAMI Starr, RDCS ??Ordering Physician: VENU SAMANIEGO Procedure Note Fani Denney MD - 04/19/2025 1 1 [facility] Heart Station [address] [place] [address] [phone] (fax) Echocardiogram-[facility] Name: KRISTY DOHERTY Study Date: 04/19/2025 02:13 PM B/P: / HR: Date of : 1955 Location: [facility] Height: 68 in. Age: 69 year(s) Patient Room: 3183 Weight: 182 lb. Gender: Male Patient Status: InPt BSA: 1.96 m2 Indication: pericardialeffusion, h/o 35mm Watchman FLX Examination: Limited Echo Image Quality: Fair Findings Pericardium: Moderate pericardial effusion baseline. Post pericardiocentesis there is minimal pericardial effusion. Procedure Staff Reading Group: [facility] Referring Physician: RUDY KING Gas Inspector: SAMI Starr, RDCS Ordering Physician: VENU SAMANIEGO Authorizing ProviderAmyult TypeResult StatusVenu Samaniego [facility] ECHO PROCEDURESFinal Result * Pathology Review (04/19/2025 3:23 PM EDT)ComponentValueRef RangeTest Method Analysis TimePerformed AtPathologist SignaturePathology ReviewReviewed. . 04/20/2025 9:17 AM [facility] ([facility])Specimen (Source)Anatomical Location / LateralityCollection Method / VolumeCollection TimeReceived TimeFluid (Pericardial Fluid)Non-blood Collection / Idlbfbl9104/19/2025 3:23 PM EDT 04/19/2025 3:33 PM EDT Narrative Authorizing ProviderResult TypeResult StatusChstalin Samaniego [facility] BLOOD ORDERABLESFinal ResultPerforming OrganizationAddressCity/State/ZIP CodePhone Number [facility] ([facility]) [address] [place] [address] * Body fluid cell differential (04/19/2025 3:23 PM EDT)ComponentValueRef Range Test MethodAnalysis TimePerformed AtPathologist SignatureTotal Cells Counted for Hvhfjjzglizw74417/03/2025 9:17 AM [facility] ([facility])Neutrophils Manual, Rvpfe5770 9:17 AM [facility] ([facility])Lymphocytes Manual, Vfmjx903 9:17 AM [facility] ([facility])[place]/Macrophage Manual, Fluid04/20/2025 9:17 AM [facility] ([facility])Eosinophils Manual, Fluid04/20/2025 9:17 AM [facility] ([facility])Basophils Manual, Fluid04/20/2025 9:17 AM [facility] ([facility])Mesothelial Manual, Sblam854/09/2024 9:17 AM [facility] ([facility])Other Cells, BF Manual 04/20/2025 9:17 AM [facility] ([facility])Specimen (Source)Anatomical Location / LateralityCollection Method / VolumeCollection TimeReceived Time Fluid (Pericardial Fluid)Non-blood Collection / Gdfspnc7704/19/2025 3:23 PM EDT 04/19/2025 3:33 PM EDT Narrative [facility] ([facility]) - 04/20/2025 9:17 AM EDT Differential performed on cytospin Authorizing ProviderResult TypeResult StatusChstalin MURRAY BODY FLUIDS AND STOOLS ORDERABLESFinal ResultPerforming OrganizationAddressCi/State/ZIP CodePhone Number [facility]) [address] [place] [address] * Anaerobic culture (04/19/2025 3:23 PM EDT)ComponentValueRef RangeTest Method Analysis TimePerformed AtPathologist SignatureAnaerobic CultureNo anaerobes isolated at day 5 FLORA 04/25/2025 10:12 AM [facility] ([facility])Specimen (Source)Anatomical Location / LateralityCollection Method / VolumeCollection TimeReceived Time 04/19/2025 3:23 PM EDT1 3:33 PM EDT Narrative Authorizing ProviderResult TypeResult StatusChstalin MURRAY MICROBIOLOGY - GENERAL ORDERABLESFinal ResultPerforming OrganizationAddress City/State/ZIP CodePhone Number [facility]) [address] [place] [address] * Body fluid culture (04/19/2025 3:23 PM EDT)ComponentValueRef RangeTest Method Analysis TimePerformed AtPathologist SignatureCultureNo growth at 5 days FLORA 04/24/2025 7:53 AM [facility] ([facility])Gram Stain ResultNo polymorphonuclear leukocytes seen04/24/2025 7:53 AM [facility] ([facility])Gram Stain ResultNo organisms seen04/24/2025 7:53 AM [facility] ([facility])Specimen (Source)Anatomical Location / LateralityCollection Method / VolumeCollection TimeReceived TimeFluidNon-blood Collection / Fauovdp2704/19/2025 3:23 PM EDT1 3:33 PM EDT Narrative Authorizing ProviderResult TypeResult StatusChstalin MURRAY MICROBIOLOGY - GENERAL ORDERABLESFinal ResultPerforming OrganizationAddress City/State/ZIP CodePhone Number [facility] ([facility]) [address] [place] [address] * (ABNORMAL) Body fluid cell count with differential (04/19/2025 3:23 PM EDT) ComponentValueRef RangeTest MethodAnalysis TimePerformed AtPathologist SignatureFluid Type Cell CountPericardial Fluid04/20/2025 9:17 AM [facility] ([facility])Fluid Pepaan676aZ60/03/2025 9:17 AM [facility] ([facility])RBC, Drlzu899,940(H)0 - 1,000 RBC/uL04/20/2025 9:17 AM [facility] ([facility])Total Number of Nucleated Cells14,314TNC/uL04/20/2025 9:17 AM [facility] ([facility])Specimen (Source)Anatomical Location / LateralityCollection Method / VolumeCollection TimeReceived TimeFluid (Pericardial Fluid)Non-blood Collection / Ydygcto6204/19/2025 3:23 PM EDT 04/19/2025 3:33 PM EDT Narrative [facility] ([facility]) - 04/20/2025 9:17 AM EDT Reference Ranges for Total Number of Nucleated Cells: Cerebrospinal Fluid 0-5 TNC/uL Pleural Fluid 0-1,000 TNC/uL Peritoneal Fluid 0-100 TNC/uL Pericardial Fluid 0-1,000 TNC/uL Synovial Fluid 0-200 TNC/uL Reference Ranges for Erythrocytes in Body Fluid: Pleural Fluid 0-100,000 RBC/uL Peritoneal Fluid 0-50,000 RBC/uL Unspecified Fluid 0-1,000 RBC/uL Authorizing ProviderResult TypeResult StatusChstalin MURRAY BODY FLUIDS AND STOOLS ORDERABLESFinal ResultPerforming OrganizationAddressCity/State/ZIP CodePhone Number [facility] ([facility]) [address] [place] [address] * 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 Authorizing Provider: ??Venu Samaniego MD ? Collected: ? 04/19/2025 1523 ? Ordering Location: ? [facility] ?Received: ?04/19/2025 1533 ? Pathologist: ? Halima Marr MD ? Specimen: ?Pericardial Fluid ? 04/24/2025 5:46 PM [facility] ([facility])Final DiagnosisA. Pericardial fluid: - Negative for malignancy. - Marked acute inflammation.04/24/2025 5:46 PM [facility] ([facility]) at 1746 EDTMicroscopic DescriptionSatisfactory for evaluation. Examination of the ThinPrep slide and cell block reveals rare benign mesothelial cells and abundant acute inflammation.04/24/2025 5:46 PM [facility] ([facility])Clinical InformationPericardial /07/2025 5:46 PM [facility] ([facility]) Gross Oqdhdqpquqq016 mL opaque, red fluid04/24/2025 5:46 PM [facility] ([facility])Specimen (Source)Anatomical Location / LateralityCollection Method / VolumeCollection TimeReceived TimePericardial Fluid04/19/2025 3:23 PM EDT 04/19/2025 3:33 PM EDT Narrative Authorizing ProviderResult TypeResult StatusChristopher Laurent MURRAY CYTOLOGY ORDERABLESFinal ResultPerforming OrganizationAddressCity/State/ZIP CodePhone Number [facility] ([facility]) [address] [place] [address] * LEFT HEART CATH, RIGHT HEART CATH, PERICARDIOCENTESIS (04/19/2025 3:22 PM EDT) Anatomical RegionLateralityModalityOtherSpecimen (Source)Anatomical Location / LateralityCollection Method / VolumeCollection TimeReceived Time Narrative 04/19/2025 3:51 PM EDT PROCEDURE PHYSICIAN: [...] cardiac catheterization lab in a fasting state. ??Informed written consent was obtained. ??javier-out was performed. he was prepped and draped in usual sterile fashion and 1% lidocaine was infiltrated. ??Using ultrasound guidance and a micropuncture access technique a 6 Cambodian sheath was placed in the right femoral vein a 4 Fr sheath was placed in the RFA. ??The Carrasquillo catheter was advanced under fluoroscopic and hemodynamic monitoring to the right atrium. ??Pressure obtained of the right atrium, right ventricle, pulmonary artery, pulmonary capillary position. ??Oxygen saturation drawn for the pulmonary artery and [place] cardiac with a cardiac index were calculated. A 4 Fr pigtail was placed in the LV and simultaneous pressures obtained. After reviewing the pressure data it was determined to perform therapeutic pericardiocentesis. ??Anesthesia was obtained over the L subxiphoid region. Using ultrasound and fluoroscopic guidance the pericardium was entered with a micropuncture wire and a 6 Fr pericardial drain placed. ??Pressures were repeated. All catheters and wires were removed. ??The sheath was removed and pressure was applied to obtain hemostasis. Specimens Removed: None Complications: None Hemodynamic Data, baseline: ?? RA: 15/12/12 mmHg Pericardi RV: 38/16 mmHg PA: 37/19/26 mmHg PCWP: mmHg LV: 90/15 mmHg CO: 6.04 L/min CI: 3.07 L/min/m2 O2 Sat: PA sat: 67% AO sat: 90% Hemodynamic Data, Pericardium: ?? RA: 12 mmHg Pericardium: 12 mmHg Hemodynamic Data, Post-pericardiocentesis: ?? RA: 8 mmHg Pericardium: 3 mmHg Study Details Pericardial effusion [I31.39] Authorizing ProviderResult TypeResult StatusChristop [facility] CARDIAC CATH PROCEDURESFinal Result * (ABNORMAL) POC Hb02% (04/19/2025 2:47 PM EDT)ComponentValueRef RangeTest MethodAnalysis TimePerformed AtPathologist BbwnigqygNPAIAF13%67.2(A)90 - 95 % QC Pass/FailPassedQC LOT #[id number] Expiration Date73,126SAMPLESITEnlSpecimen (Source)Anatomical Location / LateralityCollection Method / VolumeCollection TimeReceived TimeBloodVenous blood specimen / Eneqdrm1604/19/2025 2:47 PM EDT Narrative Farshad Ramirez MT - 04/20/2025 6:16 AM EDT Oper 9082 Authorizing ProviderResult TypeResult StatusOmar Samara MDPOINT OF CARE TEST ENTER/EDIT ORDERABLESFinal Result * (ABNORMAL) POC Hb02% (04/19/2025 2:47 PM EDT)ComponentValueRef RangeTest MethodAnalysis TimePerformed AtPathologist KwnboceikDRQEWZ98%89.8(A)90 - 95 % QC Pass/FailPassedQC LOT #[id number] Expiration Date73,126SAMPLESITEnlSpecimen (Source)Anatomical Location / LateralityCollection Method / VolumeCollection TimeReceived TimeBloodVenous blood specimen / Cqkwieh1604/19/2025 2:47 PM EDT Narrative Farshad Ramirez MT - 04/20/2025 6:16 AM EDT Oper 9082 Authorizing ProviderResult TypeResult StatusBenedict Pascual MDPOINT OF CARE TEST ENTER/EDIT ORDERABLESFinal Result * Light Green Top (04/19/2025 2:44 PM EDT)ComponentValueRef RangeTest Method Analysis TimePerformed AtPathologist SignatureExtra TubeHold for add-ons. 04/19/2025 4:01 PM [facility] ([facility])Comment:Auto resulted.Specimen (Source)Anatomical Location / LateralityCollection Method / VolumeCollection TimeReceived TimeBloodVenous blood specimen / UnknownVenipuncture / Unknown 04/19/2025 2:44 PM EDT1 2:55 PM EDT Narrative Authorizing ProviderResult TypeResult Ta MURRAY BLOOD ORDERABLES Final ResultPerforming OrganizationAddressCity/State/ZIP CodePhone Number [facility] ([facility]) [address] [place] [address] * COLLIN (04/19/2025 2:44 PM EDT)ComponentValueRef RangeTest MethodAnalysis Time Performed AtPathologist SignatureANA Titer<1:40<=1:401 1:12 PM EDT [facility] ([facility])Comment:Test performed using DAVID IFA COLLIN Hep-2 Test, a pre-standardized assay designed for the qualitativeand semi- quantitative detection of antinuclear antibodies.Specimen (Source)Anatomical Location / LateralityCollection Method / VolumeCollection TimeReceived Time BloodVenous blood specimen / UnknownVenipuncture / Huhhpid3304/19/2025 2:44 PM EDT1 2:54 PM EDT Narrative Authorizing ProviderResult TypeResult StatusVenu MURRAY BLOOD ORDERABLESFinal ResultPerforming OrganizationAddressCity/State/ZIP CodePhone Number [facility]) [address] [place] [address] * (ABNORMAL) C-reactive protein (04/19/2025 2:44 PM EDT)ComponentValueRef Range Test MethodAnalysis TimePerformed AtPathologist XhbhfzwcaYOE295.7(H)<=5.0 mg/L 04/20/2025 9:18 AM [facility])Comment:Testing performed using a new methodology, turbidimetry. Normal ranges have been updated. Old normal range was <8 mg/L.Specimen (Source)Anatomical Location / Laterality Collection Method / VolumeCollection TimeReceived TimeBloodVenous blood specimen / UnknownVenipuncture / Gaqnxct3904/19/2025 2:44 PM EDT1 2:54 PM EDT Narrative Authorizing ProviderResult TypeResult StatusChrisfrancesco MURRAY BLOOD ORDERABLESFinal ResultPerforming OrganizationAddressCity/State/ZIP CodePhone Number [facility]) [address] [place] [address] * Lavender Top (04/19/2025 2:32 PM EDT)ComponentValueRef RangeTest Method Analysis TimePerformed AtPathologist SignatureExtra TubeHold for add-ons. 04/19/2025 4:01 PM EDNEW [facility] ([facility])Comment:Auto resulted.Specimen (Source)Anatomical Location / LateralityCollection Method / VolumeCollection TimeReceived TimeBloodVenous blood specimen / UnknownVenipuncture / Unknown 04/19/2025 2:32 PM EDT1 2:55 PM EDT Narrative Authorizing ProviderResult TypeResult StatusOmar Samara MELAB BLOOD ORDERABLES Final ResultPerforming OrganizationAddressCity/State/ZIP CodePhone Number [facility]) [address] [place] [address] * COMPLETE ECHO (TTE) (04/19/2025 1:13 PM EDT)Anatomical RegionLaterality ModalityOtherSpecimen (Source)Anatomical Location / LateralityCollection Method / VolumeCollection TimeReceived Time04/19/2025 12:46 PM EDT Narrative 04/19/2025 1:44 PM EDT 1 1 [facility] Heart Station [address] [place] [address] [phone] (fax) Echocardiogram-[facility] Name: KRISTY DOHERTY Study Date: 04/19/2025 12:46 PM B/P: 97 mmHg/71 mmHg HR: Date of : 1955 [facility] early tamponade physiology. Procedure Staff Reading Group: [facility] Gas Inspector: Bryanna Cazares RDCS ??Ordering Physician: HAKAN REYES ?? Procedure Note Mitesh Vernon MD - 04/19/2025 1 1 [facility] Heart Station [address] [place] [address] [phone] (fax) Echocardiogram-[facility] Name: KRISTY DOHERTY Study Date: 04/19/2025 12:46 PM B/P: 97 mmHg/71 mmHg HR: Date of : 1955 [facility] early tamponade physiology. Procedure Staff Reading Group: [facility] Gas Inspector: Bryanna Cazares RDCS Ordering Physician: HAKAN REYES Authorizing ProviderResult TypeResult Jasmine Reyes PA-CCV ECHO PROCEDURES Final Result * Sedimentation rate (04/19/2025 12:14 PM EDT)ComponentValueRef RangeTest Method Analysis TimePerformed AtPathologist SignatureSed Rate18<20 mm/hr04/19/2025 3:37 PM [facility] ([facility])Specimen (Source)Anatomical Location / LateralityCollection Method / VolumeCollection TimeReceived TimeBloodVenous blood specimen / UnknownVenipuncture / Yxlgavh1604/19/2025 12:14 PM EDT 04/19/2025 12:35 PM EDT Narrative Authorizing ProviderResult TypeResult StatusChrisfrancesco MURRAY BLOOD ORDERABLESFinal ResultPerforming OrganizationAddressCity/State/ZIP CodePhone Number [facility] ([facility]) [address], [place] [id number] * High Sensitivity Troponin I (04/19/2025 12:14 PM EDT)ComponentValueRef Range Test MethodAnalysis TimePerformed AtPathologist SignatureHigh Sensitivity Troponin I7<20 ng/L1 2:02 PM [facility] ([facility])Specimen (Source)Anatomical Location / LateralityCollection Method / VolumeCollection TimeReceived TimeBloodVenous blood specimen / UnknownVenipuncture / Unknown 04/19/2025 12:14 PM EDT1 12:35 PM EDT Narrative Authorizing ProviderResult TypeResult StatusSamer J Tracey MDLAB BLOOD ORDERABLESFinal ResultPerforming OrganizationAddressCity/State/ZIP CodePhone Number [facility] ([facility]) [address] [place] [address] * (ABNORMAL) Comprehensive metabolic panel (04/19/2025 12:14 PM EDT)Component ValueRef RangeTest MethodAnalysis TimePerformed AtPathologist SignatureSodium 126(L)136 - 145 mmol/L1 1:01 PM [facility] ([facility]) Potassium5.03.5 - 5.1 mmol/L1 1:01 [facility] ([facility]) Mtifxgna77(L)98 - 107 mmol/L1 1:01 [facility] ([facility]) YQ67670 - 31 mmol/L1 1:01 [facility] ([facility])Anion Gap12 7 - 20 mmol/L1 1:01 [facility] ([facility])JPP742 - 25 mg/dL 04/19/2025 1:01 [facility] ([facility])Creatinine0.980.70 - 1.30 mg/dL04/19/2025 1:01 [facility] ([facility])BUN/Creatinine Ratio17.3 04/19/2025 1:01 [facility] ([facility])Mzrozqs768(H)70 - 100 mg/dL 04/19/2025 1:01 [facility] ([facility])Calcium9.58.6 - 10.3 mg/dL 04/19/2025 1:01 [facility] ([facility])MPJ6794 - 39 U/L1 1:01 [facility] ([facility])ALT (SGPT)277 - 52 U/L1 1:01 [facility] ([facility])Alkaline Qfeyktqytgg6724 - 104 U/L1 1:01 [facility] ([facility])Total Protein6.86.0 - 8.3 g/dL04/19/2025 1:01 PM [facility] ([facility])Albumin3.83.5 - 5.7 g/dL04/19/2025 1:01 PM [facility] ([facility])Total Bilirubin0.70.3 - 1.0 mg/dL04/19/2025 1:01 PM [facility] ([facility])eGFR83.5>60.0 mL/min/1.73m* 1:01 PM [facility] ([facility])Comment:[facility]???s estimated glomerular filtration rate (eGFR) will no [...] not disproportionately affect any one group of ind ividuals.Specimen (Source)Anatomical Location / LateralityCollection Method / VolumeCollection TimeReceived TimeBloodVenous blood specimen / Unknown Venipuncture / Rgkqurs8204/19/2025 12:14 PM EDT1 12:35 PM EDT Narrative Authorizing ProviderResult TypeResult StatusKyle Eric DURBIN BLOOD ORDERABLES Final ResultPerforming OrganizationAddressCity/State/ZIP CodePhone Number [facility] ([facility]) [address] [place] [address] * (ABNORMAL) CBC (04/19/2025 12:14 PM EDT)ComponentValueRef RangeTest Method Analysis TimePerformed AtPathologist SignatureAuto WBC10.71(H)4.00 - 10.60 10*3/uL04/19/2025 12:50 PM [facility] ([facility])RBC4.02(L)4.20 - 5.70 10*6/uL04/19/2025 12:50 PM [facility] ([facility])Gmbmuyekah36.013.0 - 17.0 g/dL04/19/2025 12:50 PM [facility] ([facility])Wcgtjzmbzv90.8(L) 39.0 - 50.0 %04/19/2025 12:50 PM [facility] ([facility])MCV91.582.0 - 98.0 fL04/19/2025 12:50 PM [facility] ([facility])MCH32.327.0 - 33.0 pg 04/19/2025 12:50 PM [facility] ([facility])MCHC35.3(H)32.0 - 35.0 g/dL 04/19/2025 12:50 PM [facility] ([facility])RDW13.811.5 - 15.0 % 04/19/2025 12:50 PM [facility] ([facility])Pretpwxkk181481 - 400 10*3/uL 04/19/2025 12:50 PM [facility] ([facility])Specimen (Source)Anatomical Location / LateralityCollection Method / VolumeCollection TimeReceived Time BloodVenous blood specimen / UnknownVenipuncture / Kkpshei0504/19/2025 12:14 PM EDT1 12:35 PM EDT Narrative Authorizing ProviderResult TypeResult StatusKyle Eric DURBIN BLOOD ORDERABLES Final ResultPerforming OrganizationAddressCity/State/ZIP CodePhone Number [facility] ([facility]) [address] [place] [address] * ECG 12 lead (04/19/2025 12:09 PM EDT)ComponentValueRef RangeTest Method Analysis TimePerformed AtPathologist SignatureVentricular Tuua48PJHIW MUSE Atrial Rbpi22ESNTV MUSEPR Gcjhniad112lsNH MUSEQRS RWWJIRSH356vxHC MUSEQT Irvexkdx921jmWL MUSEQTC CALCULATION(NATEZEDEREK)413msGE MUSEP Nwax25neilbrjAK MUSE R-Nefn23vwxggppUF MUSET Wave Lsuz97lkkrkaxMT MUSESpecimen (Source)Anatomical Location / LateralityCollection Method / VolumeCollection TimeReceived Time 04/19/2025 12:03 PM EDT1 12:19 PM EDT Impressions GE MUSE - [...] Bobo Raymond (80) on 04/19/2025 12:19:35 PM Authorizing ProviderResult TypeResult StatusKyannette OLSEN-CEC ORDERABLESFinal ResultPerforming OrganizationAddressCity/State/ZIP CodePhone Number MAXIMILIANO JOYNER documented in this encounter Visit Diagnoses Diagnosis [...] cardioverter-defibrillator) in place Coronary artery disease involving [place] coronary artery of [place] heart with angina pectoris Pericardial effusion Unspecified [...] pain documented in this encounter Administered Medications Medication OrderMAR ActionAction DateDoseRateSite acetaminophen (Tylenol) tablet 650 mg 650 mg, oral, Every 6 hours PRN, mild pain (1-3 pain score), headaches, fever greater than or equalto 38 degrees Celsius, (1-3), Starting on Wed04/19/25 at 1150, For 99 days Given05/04/2025 3:45 PM GXW151 qoPklua9005/03/2025 9:36 PM YRN278 mgGiven 05/03/2025 2:50 AM WDC431 mg allopurinol (Zyloprim) tablet 300 mg 300 mg, oral, Daily, First dose on Wed04/19/25 at 1230, For 99 days Given05/04/2025 9:23 AM BZU580 luCanvt4605/03/2025 10:14 AM JKN868 mgGiven 05/02/2025 9:50 AM EFN701 mg alteplase (Cathflo Activase) injection 2 mg 2 mg, intra-catheter, As needed, line care, Starting on Wed04/27/25 at 2040, For 99 days, For occluded catheter ports. Instill 2 mg (2 mL) into each port, and retain for 0.5 - 2 hours. May repeat ifcatheter remains occluded. Dilute each 2 mg vial with 2.2 mL sterile water to give 1 mg/mL final concentration. Swirl gently to mix; do not shake. BUD: 8 hours at room temp. Given04/28/2025 11:03 AM EDT2 adMjigz1104/28/2025 8:05 AM EDT2 liFomdu7204/28/2025 6:24 AM EDT2 mg amiodarone (Nexterone) infusion 1 mg/min (33.3333 mL/hr, rounded to 33.3 mL/hr), intravenous, Continuous, Starting on Wed04/24/25 at 1700, For 6 hours, Use in-line filter. Give through central venous catheter whenever available. Premix Rate/Dose Ahktih0004/24/2025 11:00 PM EDT1 mg/min33.3 mL/hrNew Bag04/24/2025 9:56 PM EDT1 mg/min33.3 mL/hrRate/Dose Gfwqap5704/24/2025 9:00 PM EDT1 mg/min33.3 mL/hr amiodarone (Nexterone) infusion 0.5 mg/min (16.6667 mL/hr, rounded to 16.67 mL/hr), intravenous, Continuous, Starting on Wed04/24/25 at 2306, For 99 days, Use in-line filter. Give through central venous catheter whenever available.Premix Rate/Dose Utwvnt7804/29/2025 1:00 PM EDT0.5 mg/min16.67 mL/hrRate/Dose Verify 04/29/2025 12:00 PM EDT0.5 mg/min16.67 mL/hrNew Bag04/29/2025 11:12 AM EDT0.5 mg/min16.67 mL/hr aspirin chewable tablet 81 mg 81 mg, oral, Daily with breakfast, First dose on Wed04/20/25 at 0800, For 99 days Given05/04/2025 9:23 AM EDT81 ogBnllp6705/03/2025 8:16 AM EDT81 lrXvlal9405/02/2025 8:50 AM EDT81 mg atorvastatin (Lipitor) tablet 40 mg 40 mg, oral, Nightly, First dose on Wed04/19/25 at 2200, For 99 days Given05/03/2025 9:31 PM EDT40 pqXrhxx8205/02/2025 9:26 PM EDT40 qnSlnwe4605/01/2025 9:55 PM EDT40 mg calcium gluc in NaCl, iso-osm 1 gram/100 mL solution 1 g 1 g, intravenous, at 100 mL/hr, Administer over 1 Hours, Every 1 hour, First dose on Wed04/28/25 at 0145, For 1 dose New 04/28/2025 2:03 AM EDT1 g100 mL/hr calcium gluc in NaCl, iso-osm 1 gram/100 mL solution 1 g 1 g, intravenous, at 100 mL/hr, Administer over 1 Hours, Every 1 hour, First dose on Wed04/28/25 at 2115, For 1 dose New Bag04/28/2025 11:07 PM EDT1 g100 mL/hr ceFAZolin in dextrose (iso-os) (Ancef) IVPB 2 g 2 g, intravenous, Administer over 30 Minutes, Every 12 hours, First dose on Wed04/19/25 at 1600, For 3 days, premix bag, Suspected Indication (Select all that apply): Cellulitis, Skin and Soft Tissue, Select Type: cellulitis WITHOUT purulent drainage, Coverage (Select all that apply): MSSA: Staph, M ethicillin-Susceptible New Bag04/20/2025 4:01 AM EDT2 gNew Bag04/19/2025 4:28 PM EDT2 g ceFAZolin in dextrose (iso-os) (Ancef) IVPB 2 g 2 g, intravenous, Administer over 30 Minutes, Every 8 hours, First dose (after last modification) on Wed04/20/25 at 1200, For 2 days, premix bag, Suspected Indication (Select all that apply): Cellulitis, Skin and Soft Tissue, Select Type: cellulitis WITHOUT purulent drainage, Coverage (Select all that apply): MSSA: Staph, Methicillin-Susceptible New Bag04/22/2025 4:07 AM EDT2 gN Bag04/21/2025 7:22 PM EDT2 gNew Bag 04/21/2025 12:07 PM EDT2 g clopidogrel (Plavix) tablet 75 mg 75 mg, oral, Daily, First dose on Wed04/19/25 at 1230, For 99 days Given05/04/2025 9:23 AM EDT75 ojDtmkm5105/03/2025 10:14 AM EDT75 bkEcqwe7305/02/2025 9:50 AM EDT75 mg colchicine tablet 0.6 mg 0.6 mg, oral, 2 times daily, First dose on Wed04/19/25 at 2200, For 99 days, On hold since Wed05/03/2025 at 0836 until manually unheld Given05/02/2025 9:26 PM EDT0.6 rfRnszo9905/02/2025 9:52 AM EDT0.6 mgGiven 05/01/2025 9:55 PM EDT0.6 mg dapagliflozin propanediol (Farxiga) tablet 10 mg 10 mg, oral, Once Daily, First dose on Lila 04/19/25 at 1230, For 99 days Given05/04/2025 9:23 AM EDT10 noXuvid2305/03/2025 10:14 AM EDT10 usNeqtq3405/02/2025 8:50 AM EDT10 mg darbepoetin richelle (Aranesp) injection (albumin free) 60 mcg 60 mcg, subcutaneous, Once, On Wed04/29/25 at 1030, For 1 dose, Indications: anemia Indications:qvetvsQnvpz60/12/2025 1:42 PM EDT60 mcgLeft Lower Abdomen dextrose 50 % in water [...] For 99 days, Use: Dialysate Fluid New Bag04/29/2025 7:59 AM EDT2,000 mL/fd2231 mL/hrNew Bag04/29/2025 7:58 AM EDT 2,000 mL/uv9966 mL/hrNew Bag04/29/2025 7:57 AM EDT2,000 mL/ib9177 mL/hr dialysate 4K/3Ca with bicarb CRRT solution (NxStage 401) 2,000 mL/hr, CRRT, Continuous, Starting on Wed04/29/25 at 1030, For 99 days, Use: Dialysate Fluid New Bag05/01/2025 8:25 AM EDT2,000 mL/js4911 mL/hrNew Bag05/01/2025 8:24 AM EDT 2,000 mL/cf3524 mL/hrNew Bag05/01/2025 8:23 AM EDT2,000 mL/rn5975 mL/hr DOBUTamine 500 mg/250 mL (2,000 mcg/mL) infusion 2.5-15 mcg/kg/min ?? 82.7 kg (6.2024-37.215 mL/hr, rounded to 6.2-37.22 mL/hr), intravenous, Continuous, Starting on Lila 04/26/25 at 1130, For 99 days, Initial dose: other, Explanatory comment: Start at 2 mcg/kg/min, Adjust dose by: No more than 5 mcg/kg/min every 10 minutes to ordered goal, Titrateto: Maintain CI > 2.2 Rate/Dose Okjojd0204/29/2025 1:00 PM EDT2 mcg/kg/min4.96 mL/hrRate/Dose Verify 04/29/2025 12:00 PM EDT2 mcg/kg/min4.96 mL/hrRate/Dose Caucba9104/29/2025 11:00 AM EDT2 mcg/kg/min4.96 mL/hr DOBUTamine 500 mg/250 mL (2,000 mcg/mL) infusion 2.5-15 mcg/kg/min ?? 82.7 kg (6.2024-37.215 mL/hr, rounded to 6.2-37.22 mL/hr), intravenous, Continuous, Starting on Thor 04/29/25 at 1345, For 96 days, Initial dose: other, Explanatory comment: Startat 1 mcg/kg/min, Adjust dose by: No more than 5 mcg/kg/min every 10 minutes to ordered goal, Titrate to: Maintain CI > 2.2 Rate/Dose Drytwi6604/30/2025 12:00 PM EDT1 mcg/kg/min2.48 mL/hrRate/Dose Verify 04/30/2025 11:00 AM EDT1 mcg/kg/min2.48 mL/hrRate/Dose Tzgxnx0204/30/2025 10:00 AM EDT1 mcg/kg/min2.48 mL/hr doxycycline (Vibramycin) capsule 100 mg 100 mg, oral, 2 times daily, First dose on [facility] 05/03/25 at 1100, For 7 days, Take with at least 8 ounces (large glass) of water, do not lie down for 30 minutes after, Suspected Indication (Select allthat apply): Cellulitis, Skin and Soft Tissue, Select Type: cellulitis WITH purulent drainage, Coverage (Select all that apply): MSSA: Staph, Methicillin-Susceptible, MRSA: Staph, Methicillin-Resistant Given05/04/2025 9:23 AM XDI334 qeJlzuc7205/03/2025 9:31 PM MVF253 mgGiven 05/03/2025 1:01 PM KWJ188 mg dupilumab (Dupixent) injection 300 mg 300 mg, subcutaneous, Once, On Wed05/01/25 at 1545, For 1 dose, Drug Name: Dupixent, Form: syringe, Length of Therapy: 1 day, How soon needed? (normally 72 hrs needed to procure): 0-24 hrs Given05/01/2025 4:09 PM OBB448 mgLeft Lower Abdomen enoxaparin (Lovenox) syringe 40 mg 40 mg, subcutaneous, Daily, First dose on Wed04/20/25 at 1000, For 99 days Given05/03/2025 10:14 AM EDT40 mgRight Lower ZlcmxwbNvtau52/15/2025 9:52 AM EDT 40 mgLeft Upper HznkkeeTlwcp32/14/2025 9:07 AM EDT40 mgLeft Lower Abdomen epoprostenol (Veletri) 500 mcg in sodium chloride 0.9 % 100 mL (5 mcg/mL) infusion 4 ng/kg/min ?? 85.1 kg (4.0848 mL/hr, rounded to 4.08 mL/hr), intravenous, Continuous, Starting on 04/28/25 at 0845, For 99 days, Use for pre filter CRRT to avoid clotting Use infusion sets with an in-line 0.22 micron filter. Protect from light. Rate/Dose Vgddqx8505/01/2025 12:00 PM EDT4 ng/kg/min4.08 mL/hrRate/Dose Verify 05/01/2025 11:00 AM EDT4 ng/kg/min4.08 mL/hrRate/Dose Gxtrpk5805/01/2025 10:00 AM EDT4 ng/kg/min4.08 mL/hr fentaNYL (Sublimaze) 50 mcg/mL injection - ADS Override Pull Starting on Wed04/27/25 at 1557, For 1 dose, Created by cabinet override fentaNYL (Sublimaze) injection 50 mcg 50 mcg, intravenous, Once, On Wed04/27/25 at 1800, For 1 dose Given04/27/2025 4:15 PM EDT50 mcg furosemide (Lasix) 500 mg 50 mL infusion 40 mg/hr (4 mL/hr), intravenous, Continuous, Starting on Wed04/26/25 at 1100, For 99 days New Bag04/27/2025 5:44 PM EDT40 mg/hr4 mL/hrRate/Dose Cbhsfk1204/27/2025 7:00 AM EDT40 mg/hr4 mL/hrNew Bag04/27/2025 5:44 AM EDT40 mg/hr4 mL/hr furosemide (Lasix) injection 40 mg 40 mg, intravenous, Every 12 hours, First dose on Wed04/24/25 at 1730, For 99 days, Administer undiluted IV push at a rate no greater than 20 mg/minute. Given04/25/2025 5:09 AM EDT40 tbNugnf8404/24/2025 5:36 PM EDT40 mg furosemide (Lasix) injection 40 mg 40 mg, intravenous, Once, On Wed04/25/25 at 0930, For 1 dose, Administer undiluted IV push at a rate no greater than 20 mg/minute. Given04/25/2025 10:07 AM EDT40 mg furosemide (Lasix) injection 40 mg 40 mg, intravenous, Once, On Wed05/02/25 at 0430, For 1 dose, Administer undiluted IV push at a rate no greater than 20 mg/minute. Given05/02/2025 4:25 AM EDT40 mg furosemide (Lasix) injection 80 mg 80 mg, intravenous, Every 12 hours, First dose (after last modification) on Wed04/25/25 at 1730, For 196 doses, Administer undiluted IV push at a rate no greater than 20 mg/minute., On hold since Wed04/26/2025 at 1049 until manually unheld Given04/26/2025 5:09 AM EDT80 zjJwyfx4804/25/2025 5:37 PM EDT80 mg glucose chewable tablet 24 g 24 g, oral, Every 15 min PRN, capillary blood glucose < 70 mg/dL and patient alert and eating, Starting on Wed04/27/25 at 0842, For 99 days, - Recheck blood glucose 5 minutes after dextrose administration. - Repeat treatment as ordered until blood glucose is greater than or equal to 80 mg/dL. -Provide a snack/meal within 1 hour after correction of hypoglycemia if not NPO. - If patient NPO oron enteral tube feeds, contact physician for potential additional interventions(s) (i.e. 5% or 10% dextrose IV fluids or tube feeding bolus) guaiFENesin (Mucinex) 12 hr tablet 600 mg 600 mg, oral, 2 times daily PRN, cough, Starting on Wed04/29/25 at 0904, For 99 days, Administer with plenty of fluids to ensure proper action. Do not crush, chew, or split. Given05/01/2025 9:55 PM RSE728 jcFtcej6804/30/2025 8:11 AM IZC938 mgGiven 04/29/2025 11:07 PM WQI121 mg heparin (porcine) injection 15,000 Units 15,000 Units, intra-catheter, As needed, trialysis catheter packing, Starting on Wed04/27/25 at 1817, For 99 days, Pack both ports of the Trialysis catheter as needed with 1.6 mL or 1.8 mL heparin (5000 units/mL) as indicated on the port Given05/01/2025 12:55 PM EDT15,000 SktumIuuov47/11/2025 10:47 AM EDT15,000 Units Given04/27/2025 11:17 PM EDT15,000 Units heparin (porcine) injection 5,000 Units 5,000 Units, subcutaneous, 2 times daily, First dose on Wed05/03/25 at 1215, For 99 days Given05/04/2025 9:26 AM EDT5,000 UnitsLeft Upper TiwyalwSenhr19/16/2025 9:31 PM EDT5,000 UnitsRight Lower Abdomen hydrocortisone sodium succinate (Solu-CORTEF) injection 50 mg 50 mg, intravenous, Every 6 hours scheduled, First dose on Wed04/26/25 at 1200, For 99 days Given04/28/2025 6:41 AM EDT50 hzYpkue2204/28/2025 12:06 AM EDT50 crEfonm7704/27/2025 5:45 PM EDT50 mg hydrocortisone sodium succinate (Solu-CORTEF) injection 50 mg 50 mg, intravenous, Every 12 hours scheduled, First dose (after last modification) on Wed04/28/25 at 2200 Given05/01/2025 9:07 AM EDT50 joVmnoe9904/30/2025 9:19 PM EDT50 lpUadkl1104/30/2025 8:29 AM EDT50 mg iohexol (OMNIPaque) 350 mg iodine/mL injection 100 mL 100 mL, intravenous, Once in imaging, Starting on Wed04/23/25 at 1648, For 1 dose Given04/23/2025 4:48 PM FCF539 mL ipratropium-albuteroL (Duo-Neb) 0.5-2.5 mg/3 mL nebulizer solution 3 mL 3 mL, nebulization, Every 6 hours while awake RT, First dose on Wed04/28/25 at 0800, For 99 days Given05/01/2025 1:44 PM EDT3 zNQexup6805/01/2025 7:58 AM EDT3 qAZzjfz8604/30/2025 8:10 PM EDT3 mL ipratropium-albuteroL (Duo-Neb) 0.5-2.5 mg/3 mL nebulizer solution 3 mL 3 mL, nebulization, Every 4 hours PRN, wheezing, Starting on Wed04/28/25 at 0343 Given04/28/2025 3:46 AM EDT3 mL ipratropium-albuteroL (Duo-Neb) 0.5-2.5 mg/3 mL nebulizer solution 3 mL 3 mL, nebulization, Every 6 hours PRN, wheezing, Starting on Wed05/01/25 at 1400, For 286 doses lactated Ringer's bolus 500 mL 500 mL, intravenous, at 500 mL/hr, Administer over 1 Hours, Once, On Wed04/19/25 at 1345, For 1 dose New Bag04/19/2025 1:54 PM UFZ869 mL500 mL/hr magnesium oxide (Mag-Ox) tablet 400 mg 400 mg, oral, Every 8 hours, First dose on Wed04/25/25 at 0445, For 3 doses Given04/25/2025 9:39 PM AAW442 ozUsrpu0704/25/2025 3:02 PM PXD689 mgGiven 04/25/2025 5:09 AM XHZ430 mg magnesium sulfate in D5W IVPB 1 g 1 g, intravenous, at 100 mL/hr, Administer over 1 Hours, Once, On Wed04/23/25 at 1045, For 1 dose New 04/23/2025 10:47 AM EDT1 g100 mL/hr magnesium sulfate in D5W IVPB 1 g 1 g, intravenous, at 100 mL/hr, Administer over 1 Hours, Once, On Lila 04/26/25 at 0515, For 1 dose Rate/Dose Rxfsdi0004/26/2025 6:00 AM NKQ856 mL/hrNew Bag04/26/2025 5:08 AM EDT1 g 100 mL/hr magnesium sulfate in D5W IVPB 1 g 1 g, intravenous, at 100 mL/hr, Administer over 1 Hours, Once, On Wed04/27/25 at 2200, For 1 dose Rate/Dose Blvziv7704/27/2025 11:00 PM DMT780 mL/hrNew Bag04/27/2025 10:05 PM EDT1 g100 mL/hr magnesium sulfate in D5W IVPB 1 g 1 g, intravenous, at 100 mL/hr, Administer over 1 Hours, Once, On 04/28/25 at 0445, For 1 dose New 04/28/2025 5:00 AM EDT1 g100 mL/hr magnesium sulfate in D5W IVPB 1 g 1 g, intravenous, at 100 mL/hr, Administer over 1 Hours, Once, On 04/28/25 at 2115, For 1 dose Rate/Dose Titotg7804/28/2025 11:00 PM YYT523 mL/hrNew 04/28/2025 10:04 PM EDT1 g100 mL/hr magnesium sulfate in D5W IVPB 1 g 1 g, intravenous, at 100 mL/hr, Administer over 1 Hours, Once, On 04/29/25 at 0445, For 1 dose Rate/Dose Jalawn7504/29/2025 6:00 AM ZEJ933 mL/hrNew Bag04/29/2025 5:04 AM EDT1 g 100 mL/hr magnesium sulfate in D5W IVPB 1 g 1 g, intravenous, at 100 mL/hr, Administer over 1 Hours, Once, On Wed04/29/25 at 2045, For 1 dose Rate/Dose Udpzet7704/29/2025 9:00 PM IAH947 mL/hrNew [facility]04/29/2025 8:59 PM EDT1 g 100 mL/hr magnesium sulfate in D5W IVPB 1 g 1 g, intravenous, at 100 mL/hr, Administer over 1 Hours, Every 1 hour, First dose on Wed05/03/25 at 0615, For 2 doses New 05/03/2025 8:10 AM EDT1 g100 mL/hrNew 05/03/2025 6:23 AM EDT1 g100 mL/hr magnesium sulfate in water IVPB 2 g 2 g, intravenous, at 50 mL/hr, Administer over 1 Hours, Every 1 hour, First dose on Wed04/30/25 kg0035, For 1 dose, For central line administration only. Rate/Dose Ewkyiw2904/30/2025 10:00 PM EDT50 mL/hrNew [facility]04/30/2025 9:19 PM EDT2 g 50 mL/hr magnesium sulfate in water IVPB 2 g 2 g, intravenous, at 50 mL/hr, Administer over 1 Hours, Every 1 hour, First dose on Wed05/02/25 nf7404, For 1 dose, For central line administration only. 05/02/2025 4:25 AM EDT2 g50 mL/hr melatonin tablet 5 mg 5 mg, oral, Nightly PRN, sleep, Starting on Wed04/26/25 at 0033, For 99 days Given04/29/2025 9:01 PM EDT5 mhWvgmh9704/26/2025 8:49 PM EDT5 jwZefph2104/26/2025 12:48 AM EDT5 mg metOLazone (Zaroxolyn) tablet 10 mg 10 mg, oral, Once, On Wed04/27/25 at 0315, For 1 dose Given04/27/2025 3:57 AM EDT10 mg metoprolol succinate XL (Toprol-XL) 24 hr split tablet 12.5 mg 12.5 mg, oral, Daily, First dose on Wed04/23/25 at 1000, For 99 days, Hold for SBP < 90, HR <60 Given05/04/2025 9:22 AM EDT12.5 wjQbptm9005/03/2025 1:01 PM EDT12.5 mgGiven 04/25/2025 10:04 AM EDT12.5 mg metoprolol tartrate (Lopressor) injection 2.5 mg 2.5 mg, intravenous, Once, On 04/23/25 at 0315, For 1 dose, Hold if heart rate less than: 60 BPMFor IVP: give over 2 minutes. Given04/23/2025 3:10 AM EDT2.5 mg milrinone (Primacor) infusion 200 mcg/mL 0.25 mcg/kg/min ?? 81.9 kg (6.1425 mL/hr, rounded to 6.14 mL/hr), intravenous, Continuous, Startingon Wed04/24/25 at 1615, For 99 days, Milrinone for cerebral vasospasms infusion, On hold since Lila 04/26/2025 at 1105 until manually unheld Rate/Dose Qlpwds2804/26/2025 11:00 AM EDT0.25 mcg/kg/min6.14 mL/hrRate/Dose Verify 04/26/2025 10:00 AM EDT0.25 mcg/kg/min6.14 mL/hrRate/Dose Wkswvx8004/26/2025 9:00 AM EDT0.25 mcg/kg/min6.14 mL/hr mometasone-formoterol (Dulera 200) 200-5 mcg/actuation inhaler 2 puff 2 puff, inhalation, 2 times daily RT, First dose on Wed04/19/25 at 1230, Rinse mouth with water after use to reduce aftertaste and incidence of candidiasis. Do not swallow. Given05/04/2025 9:26 AM EDT2 ajhsvHbnid68/16/2025 9:31 PM EDT2 puffsGiven 05/03/2025 10:13 AM EDT2 puffs naloxone (Narcan) injection 0.4 mg 0.4 mg, intravenous, As needed, opioid reversal, Starting on Wed04/19/25 at 1546, For 99 days, Recovery & On Unit, Administer IV Push over 30 seconds as needed for opioid reversal (may give IM orSubQ if no IV access), if O2 saturation is less than 90%, respiratory rate is less than or equal to8/min, and/or patient has signs/symptoms of opioid-induced respiratory depression. Hold all narcotics and notify MD immediately and give naloxone 0.4 mg every 2 minutes until respiratory rate greaterthan 12. naloxone (Narcan) injection 0.4 mg 0.4 mg, intramuscular, As needed, opioid reversal, Starting on Lila 04/19/25 at 1546, For 99 days, Recovery & On Unit, Administer IM needed for opioid reversal (may give IV or SubQ if no IM access), if O2 saturation is less than 90%, respiratory rate is less than or equal to 8/min, and/or patienthas signs/symptoms of opioid-induced respiratory depression. Hold all [...] % (Levophed) 8 mg/250ml infusion 0.01-2 mcg/kg/min ?? 83.5 kg (1.5656-313.125 mL/hr, rounded to 1.57-313.13 mL/hr), intravenous, Continuous, Starting on Wed04/25/25 at 1330, For 99 days, *ADMINISTER THROUGH A CENTRAL LINE* * PROTECTFROM LIGHT *, Initial dose: 0.01 mcg/kg/min, Adjust dose by: Not more than 0.1 mcg/kg/minute every 5 minutes, Target Blood Pressure (mmHg): other, Explanatory comment: 100-130 Rate/Dose Oqmudu2304/27/2025 10:00 AM EDT0.24 mcg/kg/min37.6 mL/hrRate/Dose Verify 04/27/2025 7:00 AM EDT0.26 mcg/kg/min40.7 mL/hrNew Bag04/27/2025 6:54 AM EDT0.26 mcg/kg/min40.7 mL/hr norepinephrine in sodium chloride 0.9 % (Levophed) 8 mg/250ml infusion 0.01-2 mcg/kg/min ?? 83.5 kg (1.5656-313.125 mL/hr, rounded to 1.57-313.13 mL/hr), intravenous, Continuous, Starting on Wed04/27/25 at 1015, For 97 days, *ADMINISTER THROUGH A CENTRAL LINE* * PROTECT FROM LIGHT *, Initial dose: 0.01 mcg/kg/min, Adjust dose by: Not more than 0.1 mcg/kg/minute every5 minutes, Target Blood Pressure (mmHg): MAP 65-75 Rate/Dose Wakrak3004/28/2025 5:03 AM EDT0.02 mcg/kg/min3.13 mL/hrRate/Dose Verify 04/28/2025 5:00 AM EDT0.03 mcg/kg/min4.7 mL/hrRate/Dose Coomlo4004/28/2025 4:39 AM EDT0.03 mcg/kg/min4.7 mL/hr ondansetron HCl (PF) (Zofran) injection 4 mg 4 mg, intravenous, Every 6 hours PRN, nausea, vomiting, Starting on Lila 04/19/25 at 1150, For 99 days, Give IV if patient is unable to take orally. Administer as an IV push over 2 to 5 minutes. Given04/23/2025 9:16 AM EDT4 mg ondansetron ODT (Zofran-ODT) disintegrating tablet 4 mg 4 mg, oral, Every 8 hours PRN, nausea, vomiting, Starting on Lila 04/19/25 at 1150, For 99 days Given04/27/2025 12:18 AM EDT4 dxNrjzs0504/26/2025 11:11 AM EDT4 dbYqcsr6204/26/2025 12:49 AM EDT4 mg oxyCODONE (Roxicodone) immediate release split tablet 2.5 mg 2.5 mg, oral, Every 6 hours PRN, moderate pain (4-7 pain score), Starting on Wed05/02/25 at 1958, For 99 days Given05/04/2025 12:13 AM EDT2.5 igWerkz6505/03/2025 2:26 PM EDT2.5 mgGiven 05/03/2025 8:16 AM EDT2.5 mg potassium chloride CR (Klor-Con M20) ER tablet 20 mEq 20 mEq, oral, Once, On Wed04/25/25 at 0445, For 1 dose, Serum K 3.5-3.9 Do not crush or chew. Given04/25/2025 5:09 AM EDT20 mEq potassium chloride CR (Klor-Con M20) ER tablet 40 mEq 40 mEq, oral, Once, On Wed04/30/25 at 0515, For 1 dose, Do not crush or chew. Given04/30/2025 5:35 AM EDT40 mEq potassium chloride IVPB 10 mEq 10 mEq, intravenous, at 100 mL/hr, Administer over 1 Hours, Every 1 hour, First dose on Wed04/30/25 at 2100, For 3 doses, Serum K 3.5-3.9 (total dose 30 mEq over 3 hours) New 04/30/2025 11:41 PM EDT10 dTh308 mL/hrNew 04/30/2025 10:43 PM EDT10 jYp891 mL/hrNew 04/30/2025 9:19 PM EDT10 lOu509 mL/hr potassium chloride IVPB 20 mEq 20 mEq, intravenous, at 50 mL/hr, Administer over 1 Hours, Every 1 hour, First dose on Wed04/25/25 at 1515, For 3 doses, For central line administration only. New 04/25/2025 7:07 PM EDT20 mEq50 mL/hrNew Bag04/25/2025 5:01 PM EDT20 mEq50 mL/hrNew Bag04/25/2025 3:40 PM EDT20 mEq50 mL/hr potassium chloride IVPB 20 mEq 20 mEq, intravenous, at 50 mL/hr, Administer over 1 Hours, Every 1 hour, First dose on Wed05/01/25at 0500, For 2 doses, For central line administration only. New Bag05/01/2025 5:58 AM EDT20 mEq50 mL/hrNew Bag05/01/2025 4:57 AM EDT20 mEq50 mL/hr potassium chloride IVPB 20 mEq 20 mEq, intravenous, at 50 mL/hr, Administer over 1 Hours, Every 1 hour, First dose on Wed05/02/25at 0415, For 4 doses, For central line administration only. New Bag05/02/2025 8:50 AM EDT20 mEq50 mL/hrNew Bag05/02/2025 7:55 AM EDT20 mEq50 mL/hrNew Bag05/02/2025 6:38 AM EDT20 mEq50 mL/hr sennosides-docusate sodium (Mishel-Colace) 8.6-50 mg per tablet 1 tablet 1 tablet, oral, 2 times daily, First dose (after last modification) on Wed04/28/25 at 1345, On hold since Wed05/01/2025 at 0728 until manually unheld Given04/29/2025 9:01 PM EDT1 wuoxurHagrg49/12/2025 10:46 AM EDT1 tabletGiven 04/28/2025 10:51 PM EDT1 tablet simethicone (Mylicon) chewable tablet 80 mg 80 mg, oral, Every 6 hours PRN, flatulence, Starting on Wed04/27/25 at 0850, For 99 days Given04/28/2025 10:50 PM EDT80 ynGjunj1504/28/2025 11:37 AM EDT80 mgGiven 04/28/2025 3:05 AM EDT80 mg sod phos di, mono-K phos mono (K Phos Neutral) tablet 2 tablet 2 tablet (500 mg), oral, Every 4 hours, First dose on Wed04/30/25 at 0500, For 4 doses, Each tablet contains 250 mg phosphorus, 298 mg sodium, 1.1 mEq potassium. Given04/30/2025 6:06 PM EDT2 rwzuaesCghdd94/13/2025 12:59 PM EDT2 tabletsGiven 04/30/2025 8:10 AM EDT2 tablets sod phos di, mono-K phos mono (K Phos Neutral) tablet 2 tablet 2 tablet (500 mg), oral, Every 4 hours, First dose on Wed04/30/25 at 2100, For 4 doses, Each tablet contains 250 mg phosphorus, 298 mg sodium, 1.1 mEq potassium. Given05/01/2025 8:26 AM EDT2 dzlbiufBfzio33/14/2025 4:05 AM EDT2 tabletsGiven 05/01/2025 12:50 AM EDT2 tablets sodium bicarbonate 150 mEq in sterile water 1,000 mL infusion 200 mL/hr, intravenous, Continuous, Starting on Wed04/28/25 at 1100, For 99 days, For pre filter CRRT use Rate/Dose Lygnvq2405/01/2025 12:00 PM MRN658 mL/hr200 mL/hrRate/Dose Verify 05/01/2025 11:00 AM GND154 mL/hr200 mL/hrRate/Dose Icbcnk3705/01/2025 10:00 AM EDT 200 mL/hr200 mL/hr sodium bicarbonate 75 mEq in sodium chloride 0.45 % 1,000 mL infusion 200 mL/hr, hemodialysis, Continuous, Starting on Wed04/27/25 at 1830, For 99 days, PRE-FILTER Hneeicbhn11/11/2025 11:20 AM OZV069 mL/hr200 mL/hrRate/Dose Azaihs5804/28/2025 6:00 AM CSJ626 mL/hr200 mL/hrRate/Dose Idrvsu6204/28/2025 5:00 AM GQC800 mL/hr200 mL/hr sodium bicarbonate tablet 1,300 mg 1,300 mg, oral, 2 times daily, First dose on Wed04/27/25 at 1045, For 99 days Given04/28/2025 10:50 PM EDT1,300 xoVbnwk3404/28/2025 10:03 AM EDT1,300 mgGiven 04/27/2025 10:04 PM EDT1,300 mg sodium chloride (Bleckley) 0.65 % nasal spray 1 spray 1 spray, Each Nostril, As needed, congestion, Starting on Wed04/29/25 at 1349, For 99 days sodium chloride 0.9 % bolus 1,000 mL 1,000 mL, intravenous, at 1,000 mL/hr, Administer over 1 Hours, Once, On Wed04/27/25 at 1830, For 1 dose, Prime circuit Rate/Dose Glfiwe6204/27/2025 9:00 PM VTD7025 mL/hrNew Bag04/27/2025 8:27 PM EDT 1,000 jZ0922 mL/hr sodium chloride 0.9 % bolus 500 mL 500 mL, intravenous, at 500 mL/hr, Administer over 1 Hours, Once, On Wed04/20/25 at 0830, For 1 dose New 04/20/2025 8:36 AM OWZ545 mL500 mL/hr sodium chloride 0.9 % bolus 500 mL 500 mL, intravenous, at 500 mL/hr, Administer over 1 Hours, Once, On Wed04/20/25 at 1000, For 1 dose New 04/20/2025 10:30 AM [id number] mL500 mL/hr sodium chloride 0.9 % infusion 75 mL/hr, intravenous, Continuous, Starting on Wed04/23/25 at 1530, For 6 hours New 04/23/2025 3:32 PM EDT75 mL/hr75 mL/hr sodium phosphates 22.5 mmol in dextrose 5 % 250 mL IVPB 22.5 mmol, intravenous, at 41.7 mL/hr, Administer over 6 Hours, Once, On Wed04/29/25 at 0915, For 1 dose, Administer over 6 hours., Phosphate replacement indication: Complete GI rest/malabsorption syndrome New 04/29/2025 10:37 AM EDT22.5 mmol41.7 mL/hr spironolactone (Aldactone) tablet 25 mg 25 mg, oral, Daily, First dose on Wed04/19/25 at 1230, For 99 days Given05/04/2025 9:23 AM EDT25 uvGhlvg9405/03/2025 10:14 AM EDT25 fnSpzdg7505/02/2025 9:51 AM EDT25 mg vasopressin 0.2 unit/mL infusion 0.04 Units/min (12 mL/hr), intravenous, Continuous, Starting on Wed04/27/25 at 1000, For 99 days, For central line administration only. New Bag04/28/2025 3:32 AM EDT0.04 Units/min12 mL/hrRate/Dose Apcsbh7104/28/2025 3:00 AM EDT0.04 Units/min12 mL/hrRate/Dose Ksxhje7904/28/2025 2:00 AM EDT0.04 Units/min12 mL/hrdocumented in this encounter Active and Recently Administered Medications Times are shown in EDT.Medication Order// allopurinol (Zyloprim) tablet 300 mg 300 mg, oral, Daily, First dose on Wed04/19/25 at 1230, For 99 days * 0950 (Given - Provider: Little Hector, RN) * 1014 (Given - Provider: Daisy Dior, RN) * 0923 (Given - Provider: Daisy Dior, RN) aspirin chewable tablet 81 mg 81 mg, oral, Daily with breakfast, First dose on Wed04/20/25 at 0800, For 99 days * 0850 (Given - Provider: Little Hector RN) * 0816 (Given - Provider: Daisy Dior, RN) * 0923 (Given - Provider: Daisy Dior, RN) atorvastatin (Lipitor) tablet 40 mg 40 mg, oral, Nightly, First dose on Wed04/19/25 at 2200, For 99 days * 2125 (Given - Provider: Kannan Newell, RN) * 2130 (Given - Provider: Myesha Schultz RN) clopidogrel (Plavix) tablet 75 mg 75 mg, oral, Daily, First dose on Wed04/19/25 at 1230, For 99 days * 0950 (Given - Provider: Little Hector RN) * 1014 (Given - Provider: Daisy Dior, SAL) * 0923 (Given - Provider: Daisy Dior, SAL) colchicine tablet 0.6 mg 0.6 mg, oral, 2 times daily, First dose on Wed04/19/25 at 2200, For 99 days, On hold since Wed05/03/2025 at 0836 until manually unheld * 0952 (Given - Provider: Little Hector RN) * 2126 (Given - Provider: Kannan Newell, SAL) * 0836 (Held by provider - Provider: Brenden Vivar MD - Reason: Change in vital signs) * 1000 (Dose Auto Held - Provider: Brenden Vivar MD) * 2200 (Dose Auto Held - Provider: Brenden Vivar MD) * 1000 (Dose Auto Held - Provider: Brenden Vivar MD) * 1833 (Unheld by provider - Provider: Automatic Discharge Provider) dapagliflozin propanediol (Farxiga) tablet 10 mg 10 mg, oral, Once Daily, First dose on Wed04/19/25 at 1230, For 99 days * 0850 (Given - Provider: Little Hector, RN) * 1014 (Given - Provider: Daisy Dior, RN) * 0923 (Given - Provider: Daisy Dior, RN) doxycycline (Vibramycin) capsule 100 mg 100 mg, oral, 2 times daily, First dose on Wed05/03/25 at 1100, For 7 days, Take with at least 8 ounces (large glass) of water, do not lie down for 30 minutes after, Suspected Indication (Select allthat apply): Cellulitis, Skin and Soft Tissue, Select Type: cellulitis WITH purulent drainage, Coverage (Select all that apply): MSSA: Staph, Methicillin-Susceptible, MRSA: Staph, Methicillin-Resistant * 1301 (Given - Provider: Daisy Dior RN) * 2131 (Given - Provider: Myesha Schultz RN) * 0923 (Given - Provider: Daisy Dior, RN) enoxaparin (Lovenox) syringe 40 mg (CANCELED) 40 mg, subcutaneous, Daily, First dose on Wed04/20/25 at 1000, For 99 days * 0952 (Given - Provider: Little Hector RN) * 1014 (Given - Provider: Daisy Dior, SAL) furosemide (Lasix) injection 40 mg (COMPLETED) 40 mg, intravenous, Once, On Wed05/02/25 at 0430, For 1 dose, Administer undiluted IV push at a rate no greater than 20 mg/minute. * 0425 (Given - Provider: Linsey Garcia RN) furosemide (Lasix) injection 80 mg 80 mg, intravenous, Every 12 hours, First dose (after last modification) on Wed04/25/25 at 1730, For 196 doses, Administer undiluted IV push at a rate no greater than 20 mg/minute., On hold since Wed04/26/2025 at 1049 until manually unheld * 0530 (Dose Auto Held - Provider: Christiano Conklin MD) * 1730 (Dose Auto Held - Provider: Christiano Conklin MD) * 0530 (Dose Auto Held - Provider: Christiano Conklin MD) * 1730 (Dose Auto Held - Provider: Christiano Conklin MD) * 0530 (Dose Auto Held - Provider: Christiano Conklin MD) * 1833 (Unheld by provider - Provider: Automatic Discharge Provider) heparin (porcine) injection 5,000 Units 5,000 Units, subcutaneous, 2 times daily, First dose on Wed05/03/25 at 1215, For 99 days * 1303 (Not Given - Provider: Daisy Dior, RN - Reason: See Provider Order - Comment: pt received lovenox this am;see mar; per pharmacist Nicole worthington to hold this dose and pt will receive next schedled) * 2131 (Given - Provider: Myesha Schultz, RN) * 0926 (Given - Provider: Daisy Dior, RN) magnesium sulfate in D5W IVPB 1 g (COMPLETED) 1 g, intravenous, at 100 mL/hr, Administer over 1 Hours, Every 1 hour, First dose on Wed05/03/25 at 0615, For 2 doses * 0623 (New Bag - Provider: Kannan Newell, SAL) * 0714 (Stopped - Provider: Daisy Dior, RN) * 0810 (New Bag - Provider: Daisy Dior, RN) * 0910 (Stopped - Provider: Daisy Dior, RN) magnesium sulfate in water IVPB 2 g (COMPLETED) 2 g, intravenous, at 50 mL/hr, Administer over 1 Hours, Every 1 hour, First dose on Wed05/02/25 [id number], For 1 dose, For central line administration only. * 0425 (New Bag - Provider: Linsey Garcia, SAL) * 0525 (Stopped - Provider: Linsey Garcia, RN) metoprolol succinate XL (Toprol-XL) 24 hr split tablet 12.5 mg 12.5 mg, oral, Daily, First dose on Wed04/23/25 at 1000, For 99 days, Hold for SBP < 90, HR <60 * 1000 (Dose Auto Held - Provider: Brenden Vivar MD) * 1000 (Dose Auto Held - Provider: Brenden Vivar MD) * 1233 (Unheld by provider - Provider: Benedict Pascual MD) * 1301 (Given - Provider: Daisy Dior, RN) * 0922 (Given - Provider: Daisy Dior, RN) mometasone-formoterol (Dulera 200) 200-5 mcg/actuation inhaler 2 puff 2 puff, inhalation, 2 times daily RT, First dose on Lila 04/19/25 at 1230, Rinse mouth with water after use to reduce aftertaste and incidence of candidiasis. Do not swallow. * 0823 (Given - Provider: Cheryl Way) * 2030 (Given - Provider: Kannan Newell, RN) * 101 (Given - Provider: Daisy Dior, RN) * 2130 (Given - Provider: Myesha Schultz, RN) * 0926 (Given - Provider: Daisy Dior, RN) potassium chloride IVPB 20 mEq (COMPLETED) 20 mEq, intravenous, at 50 mL/hr, Administer over 1 Hours, Every 1 hour, First dose on Wed05/02/25at 0415, For 4 doses, For central line administration only. * 0431 (New Bag - Provider: Linsey Garcia RN) * 0514 (Stopped - Provider: Linsey Garcia RN) * 0638 (New Bag - Provider: Linsey Garcia, RN) * 0714 (Stopped - Provider: Little Hector, RN) * 0755 (New Bag - Provider: Little Hector RN) * 0814 (Stopped - Provider: Little Hector, RN) * 0850 (New Bag - Provider: Little Hector, RN) * 0950 (Stopped - Provider: Little Hector RN) sennosides-docusate sodium (Mishel-Colace) 8.6-50 mg per tablet 1 tablet 1 tablet, oral, 2 times daily, First dose (after last modification) on 04/28/25 at 1345, On hold since Wed05/01/2025 at 0728 until manually unheld * 1000 (Dose Auto Held - Provider: Hakan Luz MD) * 2200 (Dose Auto Held - Provider: Hakan Luz MD) * 1000 (Dose Auto Held - Provider: Hakan Luz MD) * 2200 (Dose Auto Held - Provider: Hakan Luz MD) * 1000 (Dose Auto Held - Provider: Hakan Luz MD) * 1833 (Unheld by provider - Provider: Automatic Discharge Provider) spironolactone (Aldactone) tablet 25 mg 25 mg, oral, Daily, First dose on Lila 04/19/25 at 1230, For 99 days * 0951 (Given - Provider: Little Hector RN) * 1014 (Given - Provider: Daisy Dior, RN) * 0923 (Given - Provider: Daisy Dior, RN) Medication Order// acetaminophen (Tylenol) tablet 650 mg 650 mg, oral, Every 6 hours PRN, mild pain (1-3 pain score), headaches, fever greater than or equalto 38 degrees Celsius, (1-3), Starting on Wed04/19/25 at 1150, For 99 days * 0036 (Given - Provider: Linsey Garcia, RN) * 0638 (Given - Provider: Linsey Garcia, RN) * 1225 (Given - Provider: Little Hector, RN) * 194 (Given - Provider: Vero Mcintosh, SAL) * 0250 (Given - Provider: Kannan Newell, SAL) * 2136 (Given - Provider: Myesha Schultz, RN) * 1545 (Given - Provider: Daisy Dior, RN) albuterol 90 mcg/actuation inhaler 1 puff 1 [...] for 0.5 - 2 hours. May repeat ifcatheter remains occluded. Dilute each 2 mg vial [...] greater than or equal to 80 mg/dL. -Provide a snack/meal within 1 hour after correction of hypoglycemia if not NPO. - If patient NPO oron enteral tube feeds, contact physician for potential [...] intravenous, As needed, opioid reversal, Starting on Wed04/19/25 at 1546, For 99 days, Recovery & On Unit, Administer IV Push over 30 seconds as needed for opioid reversal (may give IM orSubQ if no IV access), if O2 saturation is less than 90%, respiratory rate is less than or equal to8/min, and/or patient has signs/symptoms of opioid-induced respiratory depression. Hold all narcotics and notify MD immediately and give naloxone 0.4 mg every 2 minutes until respiratory rate greaterthan 12. naloxone (Narcan) injection 0.4 mg(Linked Group 2) 0.4 mg, intramuscular, As needed, opioid reversal, Starting on Llia 04/19/25 at 1546, For 99 days, Recovery & On Unit, Administer IM needed for opioid reversal (may give IV or SubQ if no IM access), if O2 saturation is less than 90%, respiratory rate is less than or equal to 8/min, and/or patienthas signs/symptoms of opioid-induced respiratory depression. Hold all [...] on Wed05/02/25 at 1958, For 99 days * 2246 (Given - Provider: Kannan Newell, RN) * 0816 (Given - Provider: Daisy Dior, RN) * 1426 (Given - Provider: Daisy Dior, RN) * 0013 (Given - Provider: Myesha Schultz RN) simethicone (Mylicon) chewable tablet 80 mg 80 mg, oral, Every 6 hours PRN, flatulence, Starting on Wed04/27/25 at 0850, For 99 days sodium chloride (Bleckley) 0.65 % nasal spray 1 spray 1 spray, Each Nostril, As needed, congestion, Starting on 04/29/25 at 1349, For 99 days Order Group 1: glucose chewable tablet 24 gJump to med 24 g, oral, Every 15 min PRN, capillary blood glucose < 70 mg/dL and patient alert and eating, Starting on Wed04/27/25 at 0842, For 99 days, - Recheck blood glucose 5 minutes after dextrose administration. - Repeat treatment as ordered until blood glucose is greater than or equal to 80 mg/dL. -Provide a snack/meal within 1 hour after correction of hypoglycemia if not NPO. - If patient NPO oron enteral tube feeds, contact physician for potential [...] needed for opioid reversal (may give IM orSubQ if no IV access), if O2 saturation is less than 90%, respiratory rate is less than or equal to8/min, and/or patient has signs/symptoms of opioid-induced respiratory depression. Hold all narcotics and notify MD immediately and give naloxone 0.4 mg every 2 minutes until respiratory rate greaterthan 12. Or naloxone (Narcan) injection 0.4 mgJump to med 0.4 mg, intramuscular, As needed, opioid reversal, Starting on Lila 04/19/25 at 1546, For 99 days, Recovery & On Unit, Administer IM needed for opioid reversal (may give IV or SubQ if no IM access), if O2 saturation is less than 90%, respiratory rate is less than or equal to 8/min, and/or patienthas signs/symptoms of opioid-induced respiratory depression. Hold all [...] documented in this encounter Additional Health Concerns InfectionOnset DateLast IndicatedResolved TimeC. difficile Rule-Out Comment:Test discontinued 7:31 AM EDTdocumented as of this encounter Care Teams Team MemberRelationshipSpecialtyStart DateEnd Date Rudy King MD [address] [place] [address] PCP - Ilgelpq17/16/22documented as of this encounter
--- OUTSIDE RECORDS SUMMARY | 2025-05-07 10:40 | XMS_ITS | Encounter Summary ---
Author Organization [facility] Address [address] [place] [address] Care Team Providers Care Data Collection Technician Name Role Phone Rudy Guerra MD Primary Care Provider [phone] Encounter Details DateTypeDepartmentCare Team (Latest Contact Info)Xaqkydibbqq14/20/2025 10:40 AM EDTAncillary Procedure [facility] [address] [place] [phone] Pre-operative cardiovascular examination, ICD in place Social History Tobacco UseTypesPacks/DayYears UsedDateSmoking Tobacco: FormerCigarettes Smokeless Tobacco: NeverAlcohol UseStandard Drinks/NnjeSxczzrozLol14 (1 standard drink = 0.6 oz pure alcohol)occasionalAHC UtilitiesAnswerDate RecordedIn the past 12 months has the electric, gas, oil, or water [employer] threatened to shut off services in your home?No04/19/2025Humiliation, Afraid, Rape, and Kick questionnaireAnswerDate RecordedWithin the last year, have you been afraid of your partner or ex-partner?No04/19/2025Emotionally AbusedNot on file04/19/2025 Physically AbusedNot on file04/19/2025Sexually [...] were you homeless or living in a penitentiary (including now)? No04/19/2025Hunger Vital SignAnswerDate RecordedWithin the past 12 months, you worried that your food would run out before you got the money to buymore.Never true04/19/2025Ran Out of Food in the Last YearNot on file04/19/2025Sex and Gender InformationValueDate RecordedSex Assigned at TtxguHfvn19/06/2025 8:51 AM EDTLegal EuyWajs8501/14/2022 10:53 PM EDTGender OwwfsrgsXauv14/06/2025 8:51 AM EDT Sexual OrientationHeterosexual or Dhrdkejq21/06/2025 8:51 AM EDTdocumented as of this encounter Plan of Treatment DateTypeDepartmentCare Team (Latest Contact Info)Xsrqvjwoqyg08/05/2025 10:00 AM ESTOffice Visit [facility] at [address] [address] Hay William MD [address] [facility] [place] [address] documented as of this encounter Procedures Procedure NamePriorityDate/TimeAssociated DiagnosisCommentsCARDIAC DEVICE CHECK CHECK - QTLISJBupzhdo88/21/2025 9:23 AM EDT Pre-operative cardiovascular examination, ICD in place documented in this encounter Results * CARDIAC DEVICE CHECK - REMOTE - ICD (05/08/2025 9:23 AM EDT)Specimen (Source) Anatomical Location / LateralityCollection Method / VolumeCollection Time Received Time Narrative Authorizing ProviderResult TypeResult StatusPaul Segundo MDCV IMPLANTABLE CARDIAC DEVICE PROCEDURESFinal ResultPerforming OrganizationAddressCity/State/ZIP Code Phone Number CPACS documented in this encounter Visit Diagnoses Diagnosis Pre-operative cardiovascular examination, ICD in place Pre-operative cardiovascular examination documented in this encounter Care Teams Team MemberRelationshipSpecialtyStart DateEnd Date Rudy Guerra MD [address] [place] [address] PCP - Pogljri67/16/22documented as of this encounter
--- OUTSIDE RECORDS SUMMARY | 2025-05-14 13:40 | XMS_ITS | Encounter Summary ---
Author Organization [facility] Address [address] [place] [address] Care Team Providers Care Reception Manager Name Role Phone Rudy Guerra MD Primary Care Provider [phone] Reason for Referral * Imaging (Routine) - Pending ReviewSpecialtyDiagnoses / ProceduresReferred By ContactReferred To ContactCardiology Diagnoses Chronic systolic heart failure (CMS/HCC) Nonischemic cardiomyopathy (CMS/HCC) Procedures Transthoracic echo (TTE) limited lEliott Nettles CNP [address] [place] [address] Phone: tel: fax: Referral IDStatusReasonStart DateExpiration DateVisits RequestedVisits [id number] Review Perform Procedure Reason for Visit * ReasonCommentsFollow-upPatient is here today for a follow up appointment [facility] admission.Patient is wearing a 30 day monitor. Patient denies lightheaded/dizziness, edema, palpitations/racing heart, chest painCongestive Heart FailureCoronary Artery DiseaseCardiomyopathyHypertensionCardiogenic shockRight ventricular dysfunctionAtrial FibrillationHyperlipidemiaFatigue FatigueShortness of BreathSOB/[place] Encounter Details DateTypeDepartmentCare Team (Latest Contact Info)Gwycqmrzgvd48/27/2025 1:40 PM EDTOffice Visit [facility] [address] [place] [address] Elliott Nettles CNP [address] [place] [address] S/P pericardiocentesis (Primary Dx); Chronic systolic heart failure (CMS/HCC); Nonischemic cardiomyopathy (CMS/HCC); ICD (implantable cardioverter-defibrillator) in place; Paroxysmal atrial fibrillation (CMS/HCC); Benign hypertensive heart disease with heart failure (CMS/HCC); Chronic systolic congestive heart failure (CMS/HCC); Heart failure with reduced ejection fraction (CMS/HCC) Social History Tobacco UseTypesPacks/DayYears UsedDateSmoking Tobacco: FormerCigarettes Smokeless Tobacco: NeverAlcohol UseStandard Drinks/PeniMqqunkprQzm21 (1 standard drink = 0.6 oz pure alcohol)occasionalAHC UtilitiesAnswerDate RecordedIn the past 12 months has the [employer], gas, oil, or water [employer]ito[employer] threatened to shut off services in your [...] were you homeless or living in a group home (including now)? No04/19/2025Hunger Vital SignAnswerDate RecordedWithin the past 12 months, you worried that your food would run out before you got the money to buymore.Never true04/19/2025Ran Out of Food in the Last YearNot on file04/19/2025Sex and Gender InformationValueDate RecordedSex Assigned at BynqpCxot70/06/2025 8:51 AM EDTLegal TetWses7701/14/2022 10:53 PM EDTGender NgjmyuccFanr89/06/2025 8:51 AM EDT Sexual OrientationHeterosexual or Ombtwqsw00/06/2025 8:51 AM EDTdocumented as of this encounter Last Filed Vital Signs Vital SignReadingTime TakenCommentsBlood Ioihzbmx813/7605/14/2025 1:34 PM EDT Dcnen90784/27/2025 1:34 PM EDTTemperature--Respiratory Rate--Oxygen Saturation 98%05/14/2025 1:34 PM EDTInhaled Oxygen Concentration--Tnkhrf79.1 kg (170 lb) 05/14/2025 1:34 PM ORQZgnegc121.7 cm (5' 8 )05/14/2025 1:34 PM EDTBody Mass Index25.8505/14/2025 1:34 PM EDTdocumented in this encounter Functional Status * BPAnswerDate of LzqzygyubcBjddjr964/ 1:34 PM Radha Richards MA * PulseAnswerDate of BktuxmxqgkOldufe40475/27/2025 1:34 PM Radha Richards MA * Patient PositionAnswerDate of RlsarhetbjYwezswVjbzrba20/27/2025 1:34 PM EDT Radha Green MA * BPAnswerDate of MuxyenfcebAwlupu871/7605/14/2025 1:34 PM Radha Richards MA * PulseAnswerDate of ZezzmugbxoYejqap79596/27/2025 1:34 PM Radha Richards MA * UrS1KembdxRedo of EcjrbydnsrMizyjb7596/27/2025 1:34 PM Radha Richards MA * BP LocationAnswerDate of AssessmentAuthorRight arm05/14/2025 1:34 PM EDT Radha Green MA * Patient PositionAnswerDate of XwyuciugooKvymxyKqfovof99/27/2025 1:34 PM EDT Radha Green MA documented as of this encounter Progress Notes * Elliott Nettles, DAIRY CATTLE FARMER - 05/14/2025 1:40 PM EDT Images from the original note were not included. SUBJECTIVE Reason for Visit: Manas Doherty is a 69 y.o. year old male patient being seen for hospital follow up visit, cardiogenic shock, s/p pericardiocentesis. HPI: Manas Doherty is a 69 y.o. year old male with significant medical history of hypertension, paroxysmal atrial fibrillation s/p Watchman 02/06/2025, chronic HFrEf (25-30%) s/p ICD 08/2022, olecranon bursitis, and CAD who recent presented to hospital with prolonged hospitalization greater than 2 weeks initially for chest pain, was subsequently found to be in pre tamponade status post pericardiocentesis with 300 cc of serosanguineous fluid. Developed cardiogenic shock was admitted to ICU with CRRT. RV failure. 05/14/2025 office visit: Patient seen evaluated in the office today, accompanied by his . He reports doing well overall.He is able to tolerate about 400 steps with his Eclipse machine at home. Reports he will be starting cardiac rehab soon. Has not seen a community engagement specialist yet, would like to see someone locally. I will puta referral in for nephrology. Shortness of breath is reported as stable. He is able to walk into his appointment today without any issues. He does report fatigue and tiredness, but is able to do most of his ADLs. Otherwise, denies chest pain, dizziness, palpitations, lower extremity edema. Currently wearing 30-day event monitor. Medical History[1] Surgical History[2] Problem List[3] family history includes Emphysema in his father; Stroke in his mother; pacemaker in his mother. Social History[4] OBJECTIVE Visit Vitals Smoking Status Former Physical Exam Constitutional: General Appearance: well-developed, appears stated age. Level of Distress: no acute distress. Neck: Jugular Veins: normal jugular venous pressure. Lungs: Auscultation: no rales or rhonchi and normal breath sounds. Cardiovascular: Rate And Rhythm: regular Heart Sounds: normal S1 and s2; Systolic Murmur: not heard. Diastolic Murmur: not heard. Extremities: no edema Peripheral Pulses: Pulses: full and equal in all extremities except if noted. Abdomen: Inspection and Palpation: non distended or tender and soft. Musculoskeletal: Inspection: no joint tenderness or swelling. Neurologic: Gait: normal gait. Psychiatric: Mental Status: alert and normal affect. Skin: Inspection and Palpation: warm and dry. Allergies: Allergies[5] Outpatient Medications: Current Outpatient Medications Medication Instructions albuterol 90 mcg/actuation inhaler 1 puff, inhalation, 2 times daily allopurinol (ZYLOPRIM) 300 mg, Daily aspirin 81 mg, oral, Daily with breakfast atorvastatin (LIPITOR) 40 mg, oral, Nightly clopidogrel (PLAVIX) 75 mg, oral, Daily colchicine 0.6 mg, oral, Daily dapagliflozin propanediol (FARXIGA) 10 mg, oral, Once Daily Dupixent Syringe 300 mg, Every 14 days fluticasone (Flonase) 50 mcg/actuation nasal spray 1 spray, 2 times daily fluticasone propion-salmeteroL (Advair Diskus) 500-50 mcg/dose diskus inhaler 1 puff, 2 times daily furosemide (LASIX) 40 mg, oral, Daily PRN metoprolol succinate XL (TOPROL-XL) 12.5 mg, oral, Daily, Do not crush or chew. spironolactone (ALDACTONE) 25 mg, oral, Daily Recent Labs: No results displayed because visit has over 200 results. Lab on 03/26/2025 Component Date Value Sodium [...] Rate 02/06/2025 73 Atrial Rate 02/06/2025 73 TX Interval 02/06/2025 198 QRS DURATION 02/06/2025 116 QT Interval 02/06/2025 422 QTC CALCULATION(BAZETT) 02/06/2025 464 P Hulett 02/06/2025 43 R-Hulett 02/06/2025 -4 T Wave Hulett 02/06/2025 125 Activated Clotting Time 02/06/2025 336 [...] eGFR 12/01/2024 88.9 BUN/Creatinine Ratio 12/01/2024 17.2 I have personally reviewed and anaylzed the following laboratory results above. These findings havebeen analyzed in the context of the patient's clinical presentation. Cardiovascular Diagnostic Studies: Right heart cath 04/24/2025 (during hospitalization): PROCEDURE PHYSICIAN: Hay William MD . Indications: Manas Doherty is a 69 y.o. male with ongoing hypotension. His echocardiogram shows reduced left ventricular and right ventricular systolic function. He was referred for right heart catheterization to guide of management. Assistants: None. Procedure Performed: Right heart catheterization. Placement of a CANOE MAKER Webster-Stacy catheter for hemodynamic monitoring. Access into the right internal jugular vein under ultrasound guidance. Methods: Procedure was explained to the patient with risks and benefits; he signed informed consent. he was brought to the cytogenetics laboratory manager in a fasting state. The right neck area was prepped and draped in usual fashion. Micropuncture technique was used for access under ultrasound guidance into the right internal jugular vein. A 6-Malagasy x 11 cm sheath was placed. A 6-Malagasy Carrasquillo catheter was used for right heart catheterization and measurement of pressures and calculation of cardiac output using the estimated [place] method. Carrasquillo catheter was removed. Over a wire to the access sheath was upsized to a 9 Malagasy introducer sheath. A CANOE MAKER Webster-Stacy catheter was advanced with the aid of a V18 wire and the distal end of the catheter was advanced to the distal segment of the right pulmonary artery. The Webster-Stacy catheter was secured in place. he tolerated [...] with biventricular failure. Successful placement of a CANOE MAKER Webster-Stacy catheter to guide management of heart failure. Plan: Patient will be started on intravenous inotropic therapy. Further recommendations per inpatient Cardiology service. Hay William MD Left heart cath, right heart cath with pericardiocentesis 04/19/2025: PROCEDURE PHYSICIAN: Remigio Mancilla MD Clinical Presentation: 69 y.o. Male with [...] and a micropuncture access technique a 6 Frenchsheath was placed in the right femoral vein [...] RV: 38/16 mmHg PA: 37/19/26 mmHg PCWP: 19/18/17 mmHg LV: 90/15 mmHg CO: 6.04 L/min CI: 3.07 L/min/m2 O2 Sat: PA sat: 67% AO sat: 90% Hemodynamic Data, Pericardium: RA: 12 mmHg Pericardium: 12 mmHg Hemodynamic Data, Post-pericardiocentesis: RA: 8 mmHg Pericardium: 3 mmHg 12 Lead ECG: Encounter Date: 04/19/25 ECG 12 lead Result Value Ventricular Rate 120 Atrial Rate 120 TX Interval 198 QRS DURATION 102 QT Interval 294 QTC CALCULATION(BAZETT) 415 P Hulett 64 R-Hulett 38 T Wave Hulett 116 Impression Sinus tachycardia Low voltage QRS Septal infarct , age undetermined Abnormal ECG When compared with ECG of 19-APR-2025 18:24, Premature ventricular complexes are no longer Present Confirmed by Jeffy VERNON, PAUOL Pruett ([id number]) on 04/23/2025 8:14:48 AM I have personally reviewed and analyzed all available cardiac diagnostic tests and imaging reports.Findings have been analyzed in the context of the patient's clinical status. Assessment and Plan #HFrEF #NICM #S/p ICD 08/2022 #S/p pericardiocentesis NYHA II Recent hospitalization circumferential moderate pericardial effusion s/p RHC, LHC and pericardiocentesis 04/19/2025 -No evidence of equalization of diastolic pressures on RHC and LHC; RVEDP exceed pericardial pressure, making tamponade physiology less likely Repeat TTE (limited) 04/23/2025: EF 20%, minimal pericardial fusion - Continue colchicine 0.6 mg BID x 3 months #Chronic HFrEF #NICM #S/p ICD 08/2022 #S/p pericardiocentesis NYHA II Appears compensated Recent hospitalization circumferential moderate pericardial effusion s/p RHC, LHC and pericardiocentesis 04/19/2025 300 cc serosanguineous fluid. -No evidence of equalization of diastolic pressures on RHC and LHC; RVEDP exceed pericardial pressure, making tamponade physiology less likely TTE 8 04/23/2025 (limited): EF 20%, minimal [...] normal, and IVC was thin and collapsed. RHC 04/24/2025: -RA: 18, RV: 34/7, 16, PA: 37/24 (30), PCWP: 21, CO: 2.55 CI: 1.3, BP: 89/70 (78) -Findings are consistent with biventricular failure. Labs 05/07/2025: -WBC 6.6, hemoglobin 11.3, platelets 320 -Sodium 136, potassium 4.2, creatinine 1.57, BUN 31, eGFR 44, glucose 98, calcium 9.0, Labs 05/04/2025: Sodium 128, potassium 3.7, creatinine 1.58, BUN 25, eGFR 47.1, glucose 81, calcium7.3 GDMT limited by hypotension: - Continue Farxiga 10 mg daily - Continue furosemide as needed - Continue metoprolol succinate 12.5 mg daily initiated April of this year 2024 in the hospital) - Continue spironolactone 25 mg daily Entresto was discontinued due to hypotension and LINDA during hospitalization, will defer resuming due to low BP today, consider resuming next visit. #Paroxysmal atrial fibrillation -[id number] = 3 (HF, HTN, age 65-74) -S/p Watchman procedure 02/06/2025, continue DAPT (clopidogrel 75 mg, aspirin 81 mg) #Nonobstructive CAD #Dyslipidemia Denies chest pain -Continue aspirin and atorvastatin #ATN Acute tubular necrosis due to shock during recent hospitalization requiring CRRT #Hypertension Blood pressure today is 104/76, heart rate 101 Stable - Continue current meds #Right renal cyst Plan Overview: Labs: BMP, BnP Repeat TTE (limited) in about 4 weeks Follow-up on 30-day event monitor, patient's currently wearing Follow-up with Dr. William This note was partially composed using voice recognition software. While every effort was made to ensure accuracy, some unintentional cyber security manager errors may be present. ALAN [facility]rique-[facility] Cardiovascular Medicine [1] Past Medical History: Diagnosis Date Asthma 07/29/2012 CHF (congestive heart failure) (CMS/HCC) Coronary artery disease History of malignant neoplasm of prostate 07/03/2022 Hypertension 07/03/2022 [2] Past Surgical History: Procedure Laterality Date BAND HEMORRHOIDECTOMY CARDIAC CATHETERIZATION PROSTATECTOMY SINUS SURGERY [3] Patient Active Problem List Diagnosis New onset of congestive heart failure (CMS/HCC) Uncomplicated asthma History of malignant neoplasm of prostate Hypomagnesemia Primary hypertension Syncope and collapse Coronary artery disease involving ute mountain coronary artery of ute mountain heart with angina pectoris Chronic systolic heart [...] tubular necrosis) Hematoma of intravenous catheter site [4] Social History Tobacco Use Smoking status: Former Types: Cigarettes Smokeless tobacco: Never Substance Use Topics Alcohol use: Yes Alcohol/week: 14.0 standard drinks of alcohol Types: 14 Cans of beer per week Comment: occasional Drug use: Never [5] No Known Allergies documented in this encounter Plan of Treatment DateTypeDepartmentCare Team (Latest Contact Info)Hdgxozcciwr44/05/2025 10:00 AM ESTOffice Visit [facility] [address] [place] [address] Hay William MD [address] [facility] [address] [facility] [place] [address] NameTypePriorityAssociated DiagnosesDate/TimeECG 12 lead unit performedECG Aowmtgd6005/14/2025 1:48 PM EDTNameTypePriorityAssociated DiagnosesOrder Schedule Transthoracic echo (TTE) limitedEchocardiographyRoutine Chronic systolic heart failure (CMS/HCC) Nonischemic cardiomyopathy (CMS/HCC) Expected: 05/14/2025 (Approximate), Expires: 05/14/2027asic metabolic panelLab Routine Chronic systolic heart failure (CMS/HCC) Nonischemic cardiomyopathy (CMS/HCC) Expected: 05/14/2025 (Approximate), Expires: 05/14/2026-type natriuretic peptideLabRoutine Chronic systolic heart failure (CMS/HCC) Nonischemic cardiomyopathy (CMS/HCC) Expected: 05/14/2025 (Approximate), Expires: 05/14/2026documented as of this encounter Visit Diagnoses Diagnosis S/P pericardiocentesis- Primary Chronic systolic heart failure (CMS/HCC) Chronic systolic heart failure Nonischemic cardiomyopathy (CMS/HCC) Other primary cardiomyopathies ICD (implantable cardioverter-defibrillator) in place Paroxysmal atrial fibrillation (CMS/HCC) Atrial fibrillation Benign hypertensive heart disease with heart failure (CMS/HCC) Chronic systolic congestive heart failure (CMS/HCC) Heart failure with reduced ejection fraction (CMS/HCC) documented in this encounter Care Teams Team MemberRelationshipSpecialtyStart DateEnd Date Rudy Guerra MD [address] [place] [address] PCP - Srybzqz30/16/22documented as of this encounter
--- OUTSIDE RECORDS SUMMARY | 2025-05-14 14:42 | XMS_ITS | CCD ---
Author Organization [facility] Care Team Providers Care Camera Technician Name Role Phone JUDY, DR ESCALANTE Attending [...] Bernstein Consulting Unavailable KAE GOMEZ Attending Unavailable JASONKAE VICKERS Admitting Unavailable JASONKAE VICKERS Consulting Unavailable DAVID RIOS Attending Unavailable DAVID RIOS Admitting Unavailable ASIF COLVIN Consulting Unavailable NADERER, DR RUDY Simpson Primary Care Unavailable GABRIELDAVID GARCIA Consulting Unavailable MOUKARBEL, DR ESCALANTE Consulting Unavailable MOUKARBEL, DR ESCALANTE Attending Unavailable MOUKARBEL, DR ESCALANTE Admitting Unavailable NADERER, DR RUDY Simpson Primary Care Unavailable AICHHOLZ, RIVERS [employer] LAKES LEVERMAN APOORVA Admitting Unavailable AICHHOLZ, [employer] LEVERMAN APOORVA Consulting Unavailable AICHHOLZ, [employer] [place] LEVERMAN APOORVA Attending Unavailable NADERER, DR RUDY Simpson Primary Care Unavailable BONNIE RODRIGUES Consulting Unavailable NADERER, DR RUDY Simpson Primary Care Unavailable BARMILDRED BOUDREAUX Admitting Unavailable BARAZI, MILDRED Consulting Unavailable MILDRED LOGAN Attending Unavailable DR RUDY KING Primary Care Unavailable ATLANTA, DR ASIF Davila Consulting Unavailable MARCELA, SHAIKH Michelle Attending Unavailable MARCELA, SHAIKH Michelle Admitting Unavailable FAURSULA, SHAIKH Michelle Consulting Unavailable Kristy Beatty Attending Unavailable Rogerio, Kristy Admitting Unavailable Rudy King MD Primary Care Provider [phone] RUDY KING Attending Unavailable MARIAH LANGE Attending Unavailable DANNA FROY T Referring Unavailable HORANI, RAFA Attending Unavailable MESERET WELLS Admitting Unavailable MOUKARBEL, BORIS Attending Unavailable MOUKARBBORIS CARTER Admitting Unavailable KACEY, ALEKSANDR Referring Unavailable NEMO, HEMANT Referring Unavailable MOUKARBEL, BORIS Referring Unavailable GABRIEL, DAVID Referring Unavailable GABRIEL, DAVID Referring Unavailable GABRIEL, DAVID Referring Unavailable GABRIEL, DAVID Referring Unavailable ARMIN, CHUCK Referring Unavailable ARMIN, CHUCK Referring Unavailable GABRIEL, DAVID Referring Unavailable ROCÍO, BEBA Referring Unavailable GABRIEL, DAVID Referring Unavailable GABRIEL, DAVID Referring Unavailable GABRIEL, DAVID Referring Unavailable GABRIEL, DAVID Referring Unavailable ARMIN, CHUCK Referring Unavailable ROCÍO, BEBA Referring Unavailable LINETTE, PEDRO Referring Unavailable HORANI, RAFA Referring Unavailable ADEN, CHRISTOPHER Referring Unavailable GABRIEL, DAVID Referring Unavailable ADEN, VENU Referring Unavailable MARIA ISABEL, HAKAN Referring Unavailable LAURA, SAMAR Referring Unavailable ROCÍO, BEBA Referring Unavailable LINETTE, PEDRO Referring Unavailable GABRIEL, DAVID Referring Unavailable GABRIEL, DAVID Referring Unavailable GABRIEL, DAVID Referring Unavailable MOUKARBELBORIS Attending Unavailable MOUKARBEL, BORIS Attending Unavailable MOUKARBEL, BORIS Attending Unavailable GABRIEL, DAVID Referring Unavailable ROCÍO, BEBA Referring Unavailable ARMIN, CHUCK Attending Unavailable GABRIEL, DAVID Referring Unavailable LINETTE, PEDRO Referring Unavailable CASTILLO, RISA Referring Unavailable HORANI, RAFA Referring Unavailable SAULO, SAMER J Referring Unavailable MARIA ISABEL, HAKAN Referring Unavailable Allergies Allergy ClassificationReported Allergen(s)Allergy TypeDate of OnsetReaction(s) Facility (1 source)OCTACOSANOL; Translations: [OCTACOSANOL]Propensity to adverse reactions to drug (disorder)[id number] Health System [facility] Medications Current Medications MedicationDrug Class(es)DatesSig (Normalized)Sig (Original)[id number] 200 actuat albuterol 0.09 mg/actuat metered dose inhaler (9 sources)beta2-Adrenergic AgonistStart: 30-27-3217peuq 2 puff(s) by inhalation every four hours for wheezingalbuterol HFA 90 mcg/act inhaler Indications: Mild persistent asthma without complication (HCC) Inhale 2 puffs every 4 (four) hours if needed for wheezing 8.5 g 1 01/16/2025 ActiveStart: 58-58-4589avij 2 puff(s) by mouth every four hours as needed for wheezingalbuterol HFA 90 mcg/act inhaler Indications: Mild persistent asthma without complication (CMS/HCC) INHALE 2 (TWO) PUFFS BY MOUTH EVERY FOUR HOURS NEEDED FOR FOR WHEEZING 8.5 g 1 11/14/2024 ActiveStart: 49-70-9156oipz 2 puff(s) by mouth every four hours as needed for wheezingalbuterol HFA 90 mcg/act inhaler Indications: Mild persistent asthma without complication (CMS/HCC)INHALE 2 PUFFS BY MOUTH EVERY 4 HOURS NEEDED FOR WHEEZING 8.5 g 1 06/19/2024 Activeallopurinol 300 mg oral tablet (9 sources)Xanthine Oxidase InhibitorStart: 49-12-4868kfzu 1 tablet by mouth once dailyallopurinol (Zyloprim) 300 MG tablet Indications: Gout, unspecified cause, unspecified chronicity, unspecified site TAKE 1 TABLET BY MOUTH DAILY 270 tablet 11/29/2024 ActiveStart: 11-01-2023 End: 80-67-7836jeis 1 tablet by mouth once dailyallopurinol (Zyloprim) 300 MG tablet Indications: Gastroesophageal reflux disease without esophagitis Take 1 tablet (300 mg) by mouth 1 (one) time each day at the same time 30 tablet 11 11/01/2023 10/31/2024 Activeapixaban 5 mg oral tablet (9 sources)Factor Xa InhibitorStart: 16-63-7351cwpd 1 tablet by mouth in the morningEliquis 5 MG tablet Take 5 mg by mouth in the morning and 5 mg before bedtime. 12/14/2023 Activeatorvastatin 40 mg oral tablet (9 sources)HMG-CoA Reductase Inhibitortake 1 tablet by mouth once daily atorvastatin (Lipitor) 40 MG tablet Take 40 mg by mouth 1 (one) time each day at the same time Activedapagliflozin 10 mg oral tablet (9 sources)Sodium-Glucose Cotransporter 2 Inhibitortake 10 mg by mouth once dailyFarxiga 10 MG Take 10 mg by mouth 1 (one) time each day at the same time Active2 ml dupilumab 150 mg/ml prefilled syringe (9 sources)Interleukin-4 Receptor alpha AntagonistStart: 21-31-3934Zwmtxhpe 300 MG/2ML injection Inject 300 mg under the skin every 14 (fourteen) days 10/08/2022 Activefluticasone propionate 0.05 mg/actuat metered dose nasal spray (9 sources)CorticosteroidStart: 26-19-2872yhhm 1 spray(s) nasal route once daily fluticasone (Flonase) 50 MCG/ACT nasal spray Indications: Mild persistent asthma without complication (HCC) instill 1 spray IN EACH NOSTRIL DAILY 16 g 1 01/02/2025 ActiveStart: 39-62-8840lbdv 1 spray(s) nasal route once daily fluticasone (Flonase) 50 MCG/ACT nasal spray Indications: Mild persistent asthma without complication (CMS/HCC) instill 1 spray IN EACH NOSTRIL DAILY. shake gently, before first use, prime pump and after use clean tip and replace cap 16 g 1 09/04/2024 ActiveStart: 75-40-5413odjb 1 spray(s) nasal route once daily fluticasone (Flonase) 50 MCG/ACT nasal spray Indications: Mild persistent asthma without complication (CMS/HCC) instill 1 spray IN EACH NOSTRIL DAILY. shake gently, before first use, prime pump and after use clean tip and replace cap 16 g 1 06/26/2024 Aipaep40 actuat fluticasone propionate 0.5 mg/actuat / salmeterol 0.05 mg/actuat dry powder inhaler (9 sources)Corticosteroid, beta2-Adrenergic AgonistStart: 06-12-2024 End: 93-46-2875jqxa 1 puff(s) by inhalation in the morningFluticasone-Salmeterol 500-50 MCG/ACT aerosol powder Indications: Mild persistent asthma without com plication (HCC) Inhale 1 puff in the morning and 1 puff before bedtime. 60 each 3 10/17/2024 10/17/2025 Oedfcc49 hr metoprolol succinate 50 mg extended release oral tablet (9 sources)beta-Adrenergic BlockerStart: 23-02-5383xhcl 1 tablet by mouth once dailymetoprolol succinate XL (Toprol-XL) 50 MG 24 hr tablet Take 50 mg by mouth Daily 06/29/2023 ActiveStart: 81-50-6713xjjr 1 tablet by mouth every twenty-four hours in the morningmetoprolol succinate XL (Toprol-XL) 50 MG 24 hr tablet Take 50 mg by mouth in the morning. 06/29/2023 Activesacubitril 49 mg / valsartan 51 mg oral tablet (9 sources)Angiotensin 2 Receptor BlockerStart: 10-85-4703lhgs 1 tablet by mouth in the morningsacubitril-valsartan (Entresto) 49-51 MG tablet Take 1 tablet by mouth in the morning and 1 tablet in the evening. 02/19/2023 Active spironolactone 25 mg oral tablet (9 sources)Aldosterone AntagonistStart: 92-42-4414pgbx 1 tablet by mouth in the morningspironolactone (Aldactone) 25 MG tablet Take 25 mg by mouth in the morning. 08/24/2022 Active Problems Active Problems Problem ClassificationProblemDateDocumented DateEpisodic/ChronicAsthma (13 sources)Mild persistent asthma, uncomplicated; Translations: [Unspecified asthma, uncomplicated]Onset: 602683-05-3676GhzxadsCxznrm of prostate (9 sources)Malignant tumor of prostate; Translations: [Malignant neoplasm of prostate]Onset: 018208-40-5831FrasofrBqwmaat dysrhythmias (17 sources)Atrial fibrillation; Translations: [Unspecified atrial fibrillation] Onset: 083894-47-8314WpvrpaxQjfgnljprfoy of device; implant or graft (2 sources)Other specified complication of vascular prosthetic devices, implants and grafts, sequela; Translations: [Other specified complication of vascular prosthetic devices, implants and grafts, sequela]Onset: 61-67-1147Bybariiy Conduction disorders (17 sources)Presence of automatic (implantable) cardiac defibrillator; Translations: [Automatic implantable cardiac defibrillator in situ]Onset: 44-04-7348LxwianbVhhowmkcrb heart failure; nonhypertensive (20 sources)Chronic systolic (congestive) heart failure; Translations: [Acute on chronic systolic (congestive) heart failure]Onset: 07-02-2022 Resolved: 58-33-4069NchdbhrWqqwugic atherosclerosis and other heart disease (15 sources)Coronary arteriosclerosis; Translations: [Atherosclerotic heart disease of mohegan coronary artery without angina pectoris]Onset: 07-06-2022 17-19-0964LxgenfaLtvfbuma mellitus without complication (12 sources)Prediabetes; Translations: [Prediabetes]Onset: EpisodicDigestive congenital anomalies (1 source)Other specified congenital malformations of intestine; Translations: [OTH SPEC CONGEN MALFORM INTESTINE]Onset: 06-12-6402TohqotlKrhtagtjx of lipid metabolism (20 sources)Mixed hyperlipidemia; Translations: [Hyperlipidemia, unspecified] Onset: 391660-46-8832RtlmrcxNieutloja hypertension (20 sources)Benign essential hypertension; Translations: [Essential (primary) hypertension]Onset: 05-27-2011 Resolved: 243073-61-5068AolljnnUzzsx and electrolyte disorders (3 sources)Hypokalemia; Translations: [Hypo-osmolality and hyponatremia]Onset: 13-14-2588TcouwvsjOnouhzpp; including migraine (3 sources)Headache; including migraine; Translations: [HEADACHE UNSPECIFIED] Onset: 52-95-3209Epqaq valve disorders (1 source)Combined rheumatic disorders of mitral, aortic and tricuspid valves; Translations: [COMB RHEUMAT D/O MITRL AORTC TRICSP]Onset: 80-91-8806Otpqgyh Hypertension with complications and secondary hypertension (1 source)Hypertensive heart disease with heart failure; Translations: [HTN HEART DISEASE W/HEART FAIL]Onset: 81-62-4973LnldlujNbxjvdb and fatigue (2 sources)Weakness; Translations: [Weakness]Onset: 23-50-3786PshspvodFsad disorders (10 sources)Major depressive disorder, single episode, unspecified; Translations: [Depressive disorder]Onset: 074990-15-4107OdheairZdgsgrsgvro chest pain (2 sources)Chest pain, unspecified; Translations: [Chest pain, unspecified] Onset: 62-48-4963TkubxsxtAqjgyutbmim deficiencies (10 sources)Vitamin D deficiency, unspecified; Translations: [Vitamin D deficiency]Onset: 342619-33-8578SrdprgqVhdic and ill-defined heart disease (2 sources)Heart disease, unspecified; Translations: [Heart disease, unspecified]Onset: 50-48-9666BrnqonaGopix circulatory disease (2 sources)Presence of other cardiac implants and grafts; Translations: [Presence of other cardiac implants and grafts]Onset: 76-91-9564XiwvgbeRjedo circulatory disease (2 sources)Hemorrhage, not elsewhere classified; Translations: [Hemorrhage, not elsewhere classified]Onset: 27-38-9039JnozlizdUjgep liver diseases (9 sources)Steatosis of liver; Translations: [Fatty (change of) liver, not elsewhere classified]Onset: 921129-19-5304VzywfdsTklog non-traumatic joint disorders (4 sources)Effusion, left knee; Translations: [EFFUSION LEFT KNEE]Onset: 22-37-9261YollzbskUzryz nutritional; endocrine; and metabolic disorders (1 source)Obesity, unspecified; Translations: [OBESITY UNSPECIFIED]Onset: 58-69-8114LvyeylgCrrtj nutritional; endocrine; and metabolic disorders (1 source)Body mass index (BMI) 30.0-30.9, adult; Translations: [BODY MASS INDEX BMI 30.0-30.9 ADULT]Onset: 04-09-4041GcnufmwZrddn upper respiratory disease (9 sources)Allergic rhinitis due to pollen; Translations: [Allergic rhinitis due to pollen]Onset: 468535-52-5257RxdsqpsMjghb upper respiratory disease (9 sources)Seasonal allergic rhinitis; Translations: [Other seasonal allergic rhinitis]Onset: 301888-28-7481XjoajcdGduxz upper respiratory disease (9 sources)Chronic rhinitis; Translations: [Chronic rhinitis]Onset: 03-02-2023 Resolved: 526840-87-8489UqbrthiNcjpq upper respiratory disease (11 sources)Polyp of nasal cavity and/or nasal sinus; Translations: [Nasal polyp, unspecified]Onset: 547709-71-6071JzblrwvtDzcoz upper respiratory infections (9 sources)Chronic pansinusitis; Translations: [Chronic pansinusitis]Onset: 847548-90-8813RsyvhzaQlpd-; endo-; and myocarditis; cardiomyopathy (except that caused by tuberculosis or sexually transmitted disease) (13 sources)Cardiomyopathy; Translations: [Other cardiomyopathies]Onset: 305328-84-1029SwsieosAiljpaognx arthritis and related disease (1 source)Inflammatory polyarthropathy; Translations: [Inflammatory polyarthropathy]Onset: 58-61-8972XlklaqgZttkdaawifdf (1 source)CONTACT W/AND (SUSP) EXPOS COVID-19; Translations: [CONTACT W/AND (SUSP) EXPOS COVID-19]Onset: 02-62-6413Vtcblpnnfqmv (1 source)Other pericardial effusion (noninflammatory); Translations: [Other pericardial effusion (noninflammatory)]Onset: 04-19-2025 Past or Other Problems Problem ClassificationProblemDateDocumented DateEpisodic/ChronicCancer of prostate (10 sources)Personal history of malignant neoplasm of prostate; Translations: [History of malignant neoplasm ofprostate]Onset: 07-03-2022 Resolved: 539752-31-9966VfghcedjA Codes: Struck by; against (1 source)Striking against or struck by other objects, initial encounter; Translations: [STRIKING AGNST/STRUCK OTH OBJ INIT]Onset: 80-20-2967Ploxdgjs Immunizations and screening for infectious disease (1 source)Encounter for immunization; Translations: [ENCOUNTER FOR IMMUNIZATION] Onset: 75-60-1661VqdthancPtulp aftercare (1 source)Other long term care administrator (current) drug therapy; Translations: [OTH SUPERVISOR MICROWAVE CURRENT DRUG THERAPY]Onset: 31-15-5952FkxzixmmCvtdw connective tissue disease (4 sources)Pain in left foot; Translations: [PAIN IN LEFT FOOT]Onset: 08-18-2022 EpisodicOther injuries and conditions due to external causes (1 source)Unspecified injury of head, initial encounter; Translations: [UNSPECIFIED INJURY HEAD INITIAL ENC]Onset: 56-56-9750PwdhjrweAhnvt nutritional; endocrine; and metabolic disorders (9 sources)Hypomagnesemia; Translations: [Hypomagnesemia]Onset: 07-03-2022 Resolved: 568275-74-7227QscdtwsFypib screening for suspected conditions (not mental disorders or infectious disease) (4 sources)Encounter for screening for malignant neoplasm of colon; Translations: [ENC SCREEN MALIG NEOPLASM COLON]Onset: 51-99-1186Ddprpxby Screening and history of mental health and substance abuse codes (1 source)Personal history of nicotine dependence; Translations: [PERSONAL HISTORY OF NICOTINE DEPEND]Onset: 21-77-7514YeforjweGobmxjr (10 sources)Syncope and collapse; Translations: [Syncope and collapse]Onset: 07-02-2022 Resolved: 422154-21-0353IhihafwrVwrzhjrgkaym (1 source)Other pericardial effusion (noninflammatory); Translations: [Other pericardial effusion (noninflammatory)]Onset: 04-19-2025 Results Test NameValueInterpretationReference MmwcmThhkmcqm45av 95-82-177617Mkqieu [facility] HospitalOrders Onlyon 59-30-5104Hyippl OnlyNormProMedica Bay Park HospitalTelephoneon 39-66-8048UfdnqaomjBpbvpaClermont County HospitalBASIC METABOLIC PANELon 26-03-2818Qkfxa gap [Moles/Vol]15 mmol/LNormal7-20UnCleveland Clinic Fairview HospitalComment on above:Performed By: #### [id number] ####[facility] ([facility])[address] [place], [place] [address]Ujitrrs [Mass/Vol]7.3 mg/dLLow8.6-10.3[facility] HospitalComment on above:Performed By: #### [id number] ####[facility] ([facility])[address] [place], [place] [address]Rbjigdbh [Moles/Vol]94 mmol/FWgu63-300 [facility] HospitalComment on above:Performed By: #### [id number] ####[facility] ([facility] [place] [address]GJ1 [Moles/Vol] 23 mmol/FZbpdsh09-73FssgfhzuwwCleveland Clinic Fairview HospitalComment on above: Performed By: #### [id number] ####[facility] ([facility])[address] [place] [address]Tzdtofwjay [Mass/Vol]1.58 mg/dLHigh0.70-1.30UnCleveland Clinic Fairview HospitalComment on above:Performed By: #### [id number] ####[facility] ([facility])[address] [place], [place] [address]JTHFOKMTWY FILTRATION RATE ML/MIN/1.73 SQ M.UANXKDECZ66.1 mL/min/1.73m*2Low>60.0UnCleveland Clinic Fairview Hospital Comment on above:Result Comment: The [facility]???s estimated glomerular filtration rate (eGFR) will no longer include consideration of race in its calculation. The National Kidney Foundation???s eGFR Task Force developed new recommendations for the estimation of the glomerular filtration ra te in the [place] They recommend immediate implementation of the new equation refit without the race variable in all laboratories because the calculation does not include race. In addition to not including race in the calculation and reporting, it included diversity in its development, and has acceptable performance characteristics and potential consequences that do not disproportionately affect anyone group of individuals.Performed By: #### [id number] ####[facility] ([facility])[address] [place], [place] [address]Cpflito [Mass/Vol]81 mg/nIMvjimm35-858HojicvmemaCleveland Clinic Fairview HospitalComment on above:Performed By: #### [id number] ####[facility] ([facility])[address] [place], [place] [address]Zewqyezsj [Moles/Vol]3.7 mmol/LNormal3.5-5.1UnCleveland Clinic Fairview HospitalComment on above:Performed By: #### [id number] ####[facility] ([facility])[address] [place], [place] [address]Fwdlds [Moles/Vol]128 mmol/LLow 136-145UnCleveland Clinic Fairview HospitalComment on above:Performed By: #### [id number] ####[facility] ([facility])[address] [place] [address]Rrud nitrogen [Mass/Vol]25 mg/dLNormal7-25UnCleveland Clinic Fairview HospitalComment on above:Performed By: #### [id number] ####[facility] ([facility])[address] [place] [address]ZNTH NITROGEN/CREATININE (MASS RATIO) IN SER/PLAS15.8Normal [facility] HospitalComment on above:Performed By: #### [id number] ####[facility] ([facility])[address] [place] [address]YTG WITH AUTO DIFFERENTIALon 58-92-6961Njvjonmjn (Bld) [#/Vol]0.01 10*3/uLNormal0.00-0.20 [facility] HospitalComment on above:Performed By: #### [id number] ####[facility] ([facility])[address] [place] [address]Hrulskmjx/100 WBC (Bld)0.2 %Normal0.0-1.0UnCleveland Clinic Fairview HospitalComment on above: Performed By: #### [id number] ####[facility] ([facility])[address] [place] [address]Hzlrgghgvbk (Bld) [#/Vol]0.03 10*3/uLNormal0.00-0.50 [facility] HospitalComment on above:Performed By: #### [id number] ####[facility] ([facility])[address] [place] [address]Llnhnhjxpzf/100 WBC (Bld)0.5 %Normal0.0-6.0UnCleveland Clinic Fairview HospitalComment on above: Performed By: #### [id number] ####[facility] ([facility])[address] [place], [place] [address]Ftgqvoclnhb distribution width (RBC) [Ratio]14.7 %Normal 11.5-15.0UnCleveland Clinic Fairview HospitalComment on above:Performed By: #### [id number] ####[facility] ([facility])[address] [place] [address] ERYTHROCYTE MEAN CORPUSCULAR HEMOGLOBIN CONCENTRATION (G/DL) BY DHWBRYRIJ33.6 g/cCWjihmp25.0-35.0UnCleveland Clinic Fairview HospitalComment on above:Performed By: #### [id number] ####[facility] ([facility] [place], [place] [address]Wjmmcpkwij (Bld) [Volume fraction]28.3 %Low39.0-50.0UnCleveland Clinic Fairview HospitalComment on above:Performed By: #### [id number] ####[facility] ([facility])[address] [place], [place] [address]Njtoyetjrk (Bld) [Mass/Vol]9.8 g/dLLow 13.0-17.0UnCleveland Clinic Fairview HospitalComment on above:Performed By: #### [id number] ####[facility] ([facility])[address] [place], [place] [address]Fbpnywba granulocytes (Bld) [#/Vol]0.03 10*3/uLNormal0.00-0.20UnCleveland Clinic Fairview HospitalComment on above:Performed By: #### [id number] ####[facility] ([facility])[address] [place], [place] [address]Enrlzmpl granulocytes/100 WBC (Bld)0.5 %Normal0.0-1.0UnCleveland Clinic Fairview HospitalComment on above:Performed By: #### [id number] ####[facility] ([facility])[address] [place] [address] Lymphocytes (Bld) [#/Vol]0.86 10*3/uLLow1.20-4.00UnCleveland Clinic Fairview HospitalComment on above:Performed By: #### [id number] ####[facility] ([facility])[address] [place], [place] [address]Zraqhrlxxuc/100 WBC (Bld)14.2 %Low 20.0-45.0UnCleveland Clinic Fairview HospitalComment on above:Performed By: #### [id number] ####[facility] ([facility])[address] [place] [address]POT (RBC) [Entitic mass]31.6 exEmhubi00.0-33.0UnCleveland Clinic Fairview Hospital Comment on above:Performed By: #### [id number] ####[facility] ([facility])[address] [place], [place] [address]BLZ (RBC) [Entitic vol]91.3 sEFivgqg59.0-98.0 [facility] HospitalComment on above:Performed By: #### [id number] ####[facility] ([facility])[address] [place], [place] [address]Jowsagkwp (Bld) [#/Vol]0.86 10*3/uLNormal0.10-1.00UnCleveland Clinic Fairview HospitalComment on above:Performed By: #### [id number] ####[facility] ([facility])[address] [place], [place] [address]Lgyxqnyvj/100 WBC (Bld)14.2 %High5.0-12.0UnCleveland Clinic Fairview HospitalComment on above:Performed By: #### [id number] ####[facility] ([facility])[address] [place], [place] [address]Yrsoomyleah (Bld) [#/Vol]4.25 10*3/uL Normal1.60-7.60UnCleveland Clinic Fairview HospitalComment on above:Performed By: #### [id number] ####[facility] ([facility])[address] [facility] [address] Neutrophils/100 WBC (Bld)70.4 %Uqjysu15.0-72.0UnCleveland Clinic Fairview HospitalComment on above:Performed By: #### [id number] ####[facility] ([facility])[address] [place], [place] [address]UHMF (PER 100 WBCS) BY AUTOMATED COUNT 0.0 %Salhve3NqalzohepsCleveland Clinic Fairview HospitalComment on above:Performed By: #### [id number] ####[facility] ([facility])[address] [place] [address] PLATELETS (10*3/UL) IN BLOOD AUTOMATED [id number] 10*3/gRXjcftf737-677LqcyrfvonmCleveland Clinic Fairview HospitalComment on above:Performed By: #### [id number] ####[facility] ([facility])[address] [place] [address]UUL (Bld) [#/Vol]3.10 10*6/uLLow4.20-5.70UnCleveland Clinic Fairview HospitalComment on above:Performed By: #### [id number] ####[facility] ([facility])[address] [place] [address]XFJ (Bld) [#/Vol]6.04 10*3/uLNormal4.00-10.60UnCleveland Clinic Fairview HospitalComment on above:Performed By: #### [id number] ####[facility] ([facility])[address] [place] [address]FDOAQOEog 38-70-1687EZJHWPIUutvtcClermont County HospitalDSon 66-41-8966EHReuqtnJklsrhtmin of [place] Medical CenterMAGNESIUMon 37-75-4393Richdbnmu [Mass/Vol]2.0 mg/dLNormal1.9-2.7 [facility] HospitalComment on above:Performed By: #### [id number] ####[facility] ([facility])[address] [place] [address]NUAYKMXFnd 16-91-1723KPGGQOXXLpbacbCthqmjcvnh of [place] Medical CenterNURSNOTENoClermont County HospitalOrders Onlyon 45-18-6816Vytvnf OnlyNoClermont County HospitalPHOSPHORUSon 83-67-0608Dragueqnh [Mass/Vol] 3.1 mg/dLNormal2.5-5.0UnCleveland Clinic Fairview HospitalComment on above: Performed By: #### [id number] ####[facility] ([facility]AKER)[address], [place] [address]63ii 82-49-542749SxqwwzRscfdbmubu of [place] [facility] Lztofe23 NormalUnCleveland Clinic Fairview HospitalBASIC METABOLIC PANELon 34-92-3873Osccv gap [Moles/Vol]14 mmol/LNormal7-20UnCleveland Clinic Fairview HospitalComment on above:Performed By: #### [id number] ####[facility] ([facility])[address] [place], [place] [address]Vhuwkvi [Mass/Vol]7.3 mg/dLLow8.6-10.3UnCleveland Clinic Fairview HospitalComment on above:Performed By: #### [id number] ####[facility] ([facility])[address] [place], [place] [address]Gouhtiou [Moles/Vol]94 mmol/OVut13-406 [facility] HospitalComment on above:Performed By: #### [id number] ####[facility] ([facility])[address] [place], [place] [address]KP8 [Moles/Vol] 25 mmol/QCpfscq89-05TonunroodbCleveland Clinic Fairview HospitalComment on above: Performed By: #### [id number] ####[facility] ([facility])[address] [place], [place] [address]Azukelbzbx [Mass/Vol]1.75 mg/dLHigh0.70-1.30UnCleveland Clinic Fairview HospitalComment on above:Performed By: #### [id number] ####[facility] ([facility])[address] [place], [place] [address]ERGATWPERC FILTRATION RATE ML/MIN/1.73 SQ M.RZBHRHUMO84.6 mL/min/1.73m*2Low>60.0UnCleveland Clinic Fairview Hospital Comment on above:Result Comment: The [facility]???s estimated glomerular filtration rate (eGFR) will no longer include consideration of race in its calculation. The National Kidney Foundation???s eGFR Task Force developed new recommendations for the estimation of the glomerular filtration ra te in the [place] They recommend immediate implementation of the new equation refit without the race variable in all laboratories because the calculation does not include race. In addition to not including race in the calculation and reporting, it included diversity in its development, and has acceptable performance characteristics and potential consequences that do not disproportionately affect anyone group of individuals.Performed By: #### [id number] ####[facility] ([facility])[address] [place], [place] [address]Tifqzqh [Mass/Vol]89 mg/kTBendxi06-509XebrnngecjCleveland Clinic Fairview HospitalComment on above:Performed By: #### [id number] ####[facility] ([facility])[address] [place], [place] [address]Ujvemeuwa [Moles/Vol]4.1 mmol/LNormal3.5-5.1UnCleveland Clinic Fairview HospitalComment on above:Performed By: #### [id number] ####[facility] ([facility])[address] [place], [place] [address]Xmuufp [Moles/Vol]129 mmol/LLow 136-145UnCleveland Clinic Fairview HospitalComment on above:Performed By: #### [id number] ####[facility] ([facility])[address] [place], [place] [address]Jsag nitrogen [Mass/Vol]24 mg/dLNormal7-25UnCleveland Clinic Fairview HospitalComment on above:Performed By: #### [id number] ####[facility] ([facility])[address] [place], [place] [address]PDKS NITROGEN/CREATININE (MASS RATIO) IN SER/PLAS13.7Normal [facility] HospitalComment on above:Performed By: #### [id number] ####[facility] ([facility])[address] [place], [place] [address]FWML FLUID CULTUREon 41-76-5522Zxggkhrlpmt [Susc]<=0.5SusceptibleUnCleveland Clinic Fairview HospitalComment on above:Order Comment: Rare Growth Skin FloraPerformed By: #### [id number] ####[facility] ([facility])[address] [place] [address] Oxacillin [Susc]<=0.25SusceptibleUnCleveland Clinic Fairview HospitalComment on above:Order Comment: Rare Growth Skin FloraPerformed By: #### [id number] ####[facility] ([facility])[address], [place] [address]Vhhoxoclvqsl [Susc]<=0.5 SusceptibleUnCleveland Clinic Fairview HospitalComment on above:Order Comment: Rare Growth Skin FloraPerformed By: #### [id number] ####[facility] ([facility])[address] [place] [address]Ncimvmetwm [Susc]<=0.5Susceptible [facility] HospitalComment on above:Order Comment: Rare Growth Skin FloraPerformed By: #### [id number] ####[facility] ([facility])[address] [place] [address]DBG WITH AUTO DIFFERENTIALon 52-38-3608Woiraqnua (Bld) [#/Vol]0.01 10*3/uLNormal0.00-0.20UnCleveland Clinic Fairview HospitalComment on above:Performed By: #### [id number] ####[facility] ([facility])[address], [place] [address]Cphdfzlkf/100 WBC (Bld)0.2 %Normal0.0-1.0UnCleveland Clinic Fairview HospitalComment on above:Performed By: #### [id number] ####[facility] ([facility])[address], [place] [address]Tqgsausbfot (Bld) [#/Vol]0.05 10*3/uL Normal0.00-0.50UnCleveland Clinic Fairview HospitalComment on above:Performed By: #### [id number] ####[facility] ([facility])[address] [place] [address] Eosinophils/100 WBC (Bld)0.8 %Normal0.0-6.0UnCleveland Clinic Fairview Hospital Comment on above:Performed By: #### [id number] ####[facility] (BEAKER)[address], [place] [address]Qgupgaimejj distribution width (RBC) [Ratio]14.9 % Tpsmfh65.5-15.0UnCleveland Clinic Fairview HospitalComment on above:Performed By: #### [id number] ####[facility] ([facility])[address] [place] [address] ERYTHROCYTE MEAN CORPUSCULAR HEMOGLOBIN CONCENTRATION (G/DL) BY THNUEGDCR92.6 g/fBTedaew05.0-35.0UnCleveland Clinic Fairview HospitalComment on above:Performed By: #### [id number] ####[facility] ([facility])[address], [place] [address]Uirbihsbpn (Bld) [Volume fraction]27.4 %Low39.0-50.0UnCleveland Clinic Fairview HospitalComment on above:Performed By: #### [id number] ####[facility] (AKER)[address], [place] [address]Nhceewzepn (Bld) [Mass/Vol]9.2 g/dLLow 13.0-17.0UnCleveland Clinic Fairview HospitalComment on above:Performed By: #### [id number] ####[facility] ([facility])[address], [place] [address]Gjjvbzsz granulocytes (Bld) [#/Vol]0.07 10*3/uLNormal0.00-0.20UnCleveland Clinic Fairview HospitalComment on above:Performed By: #### [id number] ####[facility] ([facility])[address], [place] [address]Vnsbtgkf granulocytes/100 WBC (Bld)1.1 %High0.0-1.0UnCleveland Clinic Fairview HospitalComment on above:Performed By: #### [id number] ####[facility] (BEAKER)[address] [place] [address] Lymphocytes (Bld) [#/Vol]0.98 10*3/uLLow1.20-4.00UnCleveland Clinic Fairview HospitalComment on above:Performed By: #### [id number] ####[facility] ([facility])[address] [facility] [place] [address]Zdkhxnxxtaw/100 WBC (Bld)15.8 %Low 20.0-45.0UnCleveland Clinic Fairview HospitalComment on above:Performed By: #### [id number] ####[facility] ([facility])[address] [place] [address]KIE (RBC) [Entitic mass]31.2 qhBqadxe32.0-33.0UnCleveland Clinic Fairview Hospital Comment on above:Performed By: #### [id number] ####[facility] ([facility])[address] [place], [place] [address]BCK (RBC) [Entitic vol]92.9 pOOapuup59.0-98.0 [facility] HospitalComment on above:Performed By: #### [id number] ####[facility] ([facility])[address] [place], [place] [address]Vzeqwhnto (Bld) [#/Vol]1.00 10*3/uLNormal0.10-1.00UnCleveland Clinic Fairview HospitalComment on above:Performed By: #### [id number] ####[facility] ([facility])[address] [place], [place] [address]Pvpcunwng/100 WBC (Bld)16.1 %High5.0-12.0UnCleveland Clinic Fairview HospitalComment on above:Performed By: #### [id number] ####[facility] ([facility])[address] [place], [place] [address]Wkamzcssxpf (Bld) [#/Vol]4.11 10*3/uL Normal1.60-7.60UnCleveland Clinic Fairview HospitalComment on above:Performed By: #### [id number] ####[facility] ([facility])[address] [place] [address] Neutrophils/100 WBC (Bld)66.0 %Orrrpl17.0-72.0UnCleveland Clinic Fairview HospitalComment on above:Performed By: #### [id number] ####[facility] (BEAKER)[address] [address]BLPR (PER 100 WBCS) BY AUTOMATED COUNT 0.0 %Asxnye7XgelbnznspCleveland Clinic Fairview HospitalComment on above:Performed By: #### [id number] ####[facility] ([facility]ER)[address] [place] [address] PLATELETS (10*3/UL) IN BLOOD AUTOMATED [id number] 10*3/rHJsiyag959-986UkamikbyrmCleveland Clinic Fairview HospitalComment on above:Performed By: #### [id number] ####[facility] ([facility])[address] [place] [address]XDJ (Bld) [#/Vol]2.95 10*6/uLLow4.20-5.70UnCleveland Clinic Fairview HospitalComment on above:Performed By: #### [id number] ####[facility] ([facility])[address] [place] [address]ULD (Bld) [#/Vol]6.22 10*3/uLNormal4.00-10.60UnCleveland Clinic Fairview HospitalComment on above:Performed By: #### [id number] ####[facility] ([facility])[address] [place] [address]NTELLAGEja 58-85-3618VALKMVPJXojugnSt. Francis HospitalNURSNOTENormalUniversity Trumbull Memorial HospitalNNOR-LEA GENERAL HOSPITALNOTENormalUniversMemorial Health System Selby General HospitalPHOSPHORUSon 05-03-2025 Magnesium [Mass/Vol]1.8 mg/dLLow1.9-2.7UnCleveland Clinic Fairview Hospital Comment on above:Performed By: #### [id number] ####[facility] ([facility]ER)[address] [place] [address]Mqooxbdem By: #### [id number] ####[facility] ([facility]ER)[address] [place] [address]ld [id number] patient is Moderately Stable - Low risk of patient condition declining or worsening The patient's goals for the shift include comfort, rest The clinical goals for the shift include stable labsNormalUniversity of [facility]30The patient is Moderately Unstable - Medium risk of patient condition declining or worsening The patient's goals for the shift include comfort, rest The clinical goals for the shift include stable labsNormalUniversity of [facility] Center – Round RockCB WITH AUTO DIFFERENTIALon 19-97-5691Vbvflsykr (Bld) [#/Vol]0.01 10*3/uLNormal0.00-0.20UnCleveland Clinic Fairview HospitalComment on above: Performed By: #### [id number] ####[facility] ([facility]ER)[address] [place], [place] [address]Lkwsruupd/100 WBC (Bld)0.2 %Normal0.0-1.0UnCleveland Clinic Fairview HospitalComment on above:Performed By: #### [id number] ####[facility] ([facility]ER)[address] [place], [place] [address]Jhhaorfttci (Bld) [#/Vol]0.02 10*3/uL Normal0.00-0.50UnCleveland Clinic Fairview HospitalComment on above:Performed By: #### [id number] ####[facility] (BEQuartics)[address] [place] [address] Eosinophils/100 WBC (Bld)0.3 %Normal0.0-6.0UnCleveland Clinic Fairview Hospital Comment on above:Performed By: #### [id number] ####[facility] (BEAKER)[address] [place], [place] [address]Djalsaqsqku distribution width (RBC) [Ratio]15.1 % High11.5-15.0UnCleveland Clinic Fairview HospitalComment on above:Performed By: #### [id number] ####[facility] ([facility]ER)[address] AVSHANTELENCOMPASS [facility] [place] [address] ERYTHROCYTE MEAN CORPUSCULAR HEMOGLOBIN CONCENTRATION (G/DL) BY CEYFGAPTT14.1 g/gGKpbjhp81.0-35.0UnCleveland Clinic Fairview HospitalComment on above:Performed By: #### [id number] ####[facility] (BE[facility]ER)[address], [place] [address]Vrgtyujuyv (Bld) [Volume fraction]24.6 %Low39.0-50.0UnCleveland Clinic Fairview HospitalComment on above:Performed By: #### [id number] ####[facility] ([facility])[address], [place] [address]Wtxeoxlhft (Bld) [Mass/Vol]8.4 g/dLLow 13.0-17.0UnCleveland Clinic Fairview HospitalComment on above:Performed By: #### [id number] ####[facility] ([facility])[address] [place], [place] [address]Mvsjcfkj granulocytes (Bld) [#/Vol]0.05 10*3/uLNormal0.00-0.20UnCleveland Clinic Fairview HospitalComment on above:Performed By: #### [id number] ####[facility] ([facility])[address] [place], [place] [address]Xjojphxy granulocytes/100 WBC (Bld)0.8 %Normal0.0-1.0UnCleveland Clinic Fairview HospitalComment on above:Performed By: #### [id number] ####[facility] ([facility])[address] [place] [address] Lymphocytes (Bld) [#/Vol]0.95 10*3/uLLow1.20-4.00UnCleveland Clinic Fairview HospitalComment on above:Performed By: #### [id number] ####[facility] ([facility])[address] [place], [place] [address]Ospebqxwdur/100 WBC (Bld)16.0 %Low 20.0-45.0UnCleveland Clinic Fairview HospitalComment on above:Performed By: #### [id number] ####[facility] ([facility])[address], [place] [address]YQD (RBC) [Entitic mass]31.9 wnYqkuun48.0-33.0UnCleveland Clinic Fairview Hospital Comment on above:Performed By: #### [id number] ####[facility] ([facility])[address] [place] [address]TBT (RBC) [Entitic vol]93.5 gPYgbvkl19.0-98.0 [facility] HospitalComment on above:Performed By: #### [id number] ####[facility] ([facility])[address] [place] [address]Kitkxykby (Bld) [#/Vol]0.93 10*3/uLNormal0.10-1.00UnCleveland Clinic Fairview HospitalComment on above:Performed By: #### [id number] ####[facility] ([facility])[address] [place] [address]Ugatjntzf/100 WBC (Bld)15.7 %High5.0-12.0UnCleveland Clinic Fairview HospitalComment on above:Performed By: #### [id number] ####[facility] ([facility])[address]GIEENCOM[facility] [place]haS[place], [place] [address]Spiblhwkukr (Bld) [#/Vol]3.98 10*3/uL Normal1.60-7.60UnCleveland Clinic Fairview HospitalComment on above:Performed By: #### [id number] ####[facility] ([facility])[address] [place] [address] Neutrophils/100 WBC (Bld)67.0 %Jtjnyr71.0-72.0UnCleveland Clinic Fairview HospitalComment on above:Performed By: #### [id number] ####[facility] ([facility])[address] [place], [place] [address]PXOB (PER 100 WBCS) BY AUTOMATED COUNT 0.3 %Htym3CexsyudasjCleveland Clinic Fairview HospitalComment on above:Performed By: #### [id number] ####[facility] ([facility])[address] [place] [address] PLATELETS (10*3/UL) IN BLOOD AUTOMATED [id number] 10*3/aVVtccln386-452XgjhsatndwCleveland Clinic Fairview HospitalComment on above:Performed By: #### [id number] ####[facility] ([facility])[address] [place] [address]RPB (Bld) [#/Vol]2.63 10*6/uLLow4.20-5.70UnCleveland Clinic Fairview HospitalComment on above:Performed By: #### [id number] ####[facility] ([facility])[address] [place] [address]JOZ (Bld) [#/Vol]5.94 10*3/uLNormal4.00-10.60UnCleveland Clinic Fairview HospitalComment on above:Performed By: #### [id number] ####[facility] ([facility])[address] [place] [address]AQKWYQMLAWDGM METABOLIC PANELon 48-53-9842Aboftdz [Mass/Vol]3.1 g/dLLow3.5-5.7UnCleveland Clinic Fairview HospitalComment on above:Performed By: #### [id number] ####[facility] ([facility])[address] [place] [address]BVY [Catalytic activity/Vol]60 U/L Omerbe14-525AhbskcljpbCleveland Clinic Fairview HospitalComment on above:Performed By: #### [id number] ####[facility] ([facility])[address] [place] [address]VZZ [Catalytic activity/Vol]129 U/LHigh7-52UnCleveland Clinic Fairview Hospital Comment on above:Performed By: #### [id number] ####[facility] ([facility])[address] [place] [address]Rxrmi gap [Moles/Vol]10 mmol/LNormal7-20UnCleveland Clinic Fairview HospitalComment on above:Performed By: #### [id number] ####[facility] ([facility])[address], [place] [address]BOH [Catalytic activity/Vol]54 U/WVjen00-72XucrwqdnucCleveland Clinic Fairview HospitalComment on above: Performed By: #### [id number] ####[facility] ([facility])[address], [place] [address]Zznldipab [Mass/Vol]0.7 mg/dLNormal0.3-1.0UnCleveland Clinic Fairview HospitalComment on above:Performed By: #### [id number] ####[facility] ([facility])[address] [place] [address]Lcxfpjp [Mass/Vol]7.3 mg/dLLow8.6-10.3 [facility] HospitalComment on above:Performed By: #### [id number] ####[facility] ([facility])[address] [place] [address]Wplxnydg [Moles/Vol]93 mmol/PJeu96-227ToziwjxuaoCleveland Clinic Fairview HospitalComment on above:Performed By: #### [id number] ####[facility] ([facility])[address] [place] [place] [address]WE9 [Moles/Vol]33 mmol/FImhm29-71BonurwzhcbCleveland Clinic Fairview HospitalComment on above:Performed By: #### [id number] ####[facility] ([facility])[address] [place] [address]Wovzibswcc [Mass/Vol]1.69 mg/dLHigh 0.70-1.30UnCleveland Clinic Fairview HospitalComment on above:Performed By: #### [id number] ####[facility] ([facility])[address] [place] [address]JQHKHOHEFQ FILTRATION RATE ML/MIN/1.73 SQ M.XMUQGPORZ83.4 mL/min/1.73m*2Low>60.0UnCleveland Clinic Fairview HospitalComment on above:Result Comment: The [facility]???s estimated glomerular filtration rate (eGFR) will [...] potential consequences that do not disproportionately affect anyone group of individuals. Performed By: #### [id number] ####[facility] ([facility] [place], [place] [address]Xrptgvy [Mass/Vol]105 mg/oGPjzv27-385WnugxhohvrCleveland Clinic Fairview HospitalComment on above:Performed By: #### [id number] ####[facility] ([facility])[address] [place], [place] [address]Wexadhbue [Moles/Vol]3.1 mmol/LLow 3.5-5.1UnCleveland Clinic Fairview HospitalComment on above:Performed By: #### [id number] ####[facility] ([facility])[address] [place], [place] [address]Pvahdly [Mass/Vol]5.4 g/dLLow6.0-8.3UnCleveland Clinic Fairview HospitalComment on above: Performed By: #### [id number] ####[facility] ([facility])[address] [place], [place] [address]Nvhevi [Moles/Vol]133 mmol/YEza829-689LfzunjvhnxCleveland Clinic Fairview HospitalComment on above:Performed By: #### [id number] ####[facility] ([facility])[address] [place], [place] [address]Mynr nitrogen [Mass/Vol]20 mg/dLNormal 7-25UnCleveland Clinic Fairview HospitalComment on above:Performed By: #### [id number] ####[facility] ([facility])[address] [place], [place] [address]CKKB NITROGEN/CREATININE (MASS RATIO) IN SER/PLAS11.8NormalUniversMemorial Health System Selby General HospitalComment on above:Performed By: #### [id number] ####[facility] ([facility])[address] [place], [place] [address]LRILOSYRNiq 07-16-3982Omkkjtdmo [Mass/Vol]1.8 mg/dLLow1.9-2.7UnCleveland Clinic Fairview HospitalComment on above:Performed By: #### [id number] ####[facility] ([facility])[address] [place], [place] [address]GNNCZKEOWFor 28-05-97[address]Wyqgdpbbe [Mass/Vol]2.5 mg/dLNormal 2.5-5.0UnCleveland Clinic Fairview HospitalComment on above:Performed By: #### [id number] ####[facility] ([facility])[address] [place] [address]90of 96-90-331914Vsn patient is Moderately Unstable - Medium risk of patient condition declining or worsening The patient's goals for the shift include Comfort, rest The clinical goals for the shift include VSSNormalUniversity of [facility] Round RockBASIC METABOLIC PANELon 44-18-3966Uioej gap [Moles/Vol]9 mmol/LNormal7-20 [facility] HospitalComment on above:Performed By: #### [id number] ####[facility] ([facility])[address] [place] [address]Vwbwhpx [Mass/Vol]7.7 mg/dLLow8.6-10.3UnCleveland Clinic Fairview HospitalComment on above:Performed By: #### [id number] ####[facility] ([facility])[address], [place] [address]Ujriixyk [Moles/Vol]96 mmol/RNoc10-988XulotlsiygCleveland Clinic Fairview HospitalComment on above:Performed By: #### [id number] ####[facility] ([facility])[address], [place] [address]VY7 [Moles/Vol]35 mmol/OIhea85-10 [facility] HospitalComment on above:Performed By: #### [id number] ####[facility] ([facility])[address], [place] [address]Kjihxftcas [Mass/Vol]1.01 mg/dLNormal0.70-1.30UnCleveland Clinic Fairview HospitalComment on above:Performed By: #### [id number] ####[facility] ([facility])[address] [place], [place] [address]AOSVVRNGZV FILTRATION RATE ML/MIN/1.73 SQ M.FDLUREWQB60.5 mL/min/1.73m*2Normal>60.0UnCleveland Clinic Fairview HospitalComment on above: Result Comment: [facility]???s estimated glomerular filtration rate (eGFR) will [...] potential consequences that do not disproportionately affect anyone group of individuals.Performed By: #### [id number] ####[facility] ([facility])[address] [place] [place], [place] [address]Qpyfyek [Mass/Vol]99 mg/rLZjdgja47-930PugaofoaayCleveland Clinic Fairview HospitalComment on above:Performed By: #### [id number] ####[facility] ([facility])[address] [place] [place], [place] [address]Sjottevrq [Moles/Vol]3.9 mmol/LNormal3.5-5.1UnCleveland Clinic Fairview HospitalComment on above:Performed By: #### [id number] ####[facility] ([facility])[address] [place] [address] Sodium [Moles/Vol]136 mmol/XJxtsyj525-653LmztbtddnhCleveland Clinic Fairview Hospital Comment on above:Performed By: #### [id number] ####[facility] [facility] [place], [place] [address]Wxzt nitrogen [Mass/Vol]11 mg/dLNormal7-25 [facility] HospitalComment on above:Performed By: #### [id number] ####[facility] ([facility])[address], [place] [address]TLME NITROGEN/CREATININE (MASS RATIO) IN SER/PLAS10.9NormalUniversMemorial Health System Selby General HospitalComment on above:Performed By: #### [id number] ####[facility] ([facility])[address], [place] [address]Gsjem gap [Moles/Vol]11 mmol/LNormal 7-20UnCleveland Clinic Fairview HospitalComment on above:Performed By: #### [id number] ####[facility] ([facility])[address] [place], [place] [address]Niqtkdl [Mass/Vol]7.8 mg/dLLow8.6-10.3UnCleveland Clinic Fairview HospitalComment on above:Performed By: #### [id number] ####[facility] ([facility])[address] [place], [place] [address]Cemivlyk [Moles/Vol]94 mmol/FQdu81-132BzmqanhtexCleveland Clinic Fairview HospitalComment on above:Performed By: #### [id number] ####[facility] ([facility])[address] [place], [place] [address]BN8 [Moles/Vol]35 mmol/ZPouh54-62 [facility] HospitalComment on above:Performed By: #### [id number] ####[facility] ([facility])[address] [place], [place] [address]Eufnbtfgix [Mass/Vol]1.21 mg/dLNormal0.70-1.30UnCleveland Clinic Fairview HospitalComment on above:Performed By: #### [id number] ####[facility] ([facility])[address] [place], [place] [address]IEORBXNVEP FILTRATION RATE ML/MIN/1.73 SQ M.AVDZAFLAI44.8 mL/min/1.73m*2Normal>60.0UnCleveland Clinic Fairview HospitalComment on above: Result Comment: [facility]???s estimated glomerular filtration rate (eGFR) will [...] potential consequences that do not disproportionately affect anyone group of individuals.Performed By: #### [id number] ####[facility] ([facility])[address] [place], [place] [address]Jfjxttl [Mass/Vol]113 mg/qUIodz65-570RmhmvxobraCleveland Clinic Fairview HospitalComment on above:Performed By: #### [id number] ####[facility] ([facility])[address] [place] [address]Ohflpiyvw [Moles/Vol]3.8 mmol/L Normal3.5-5.1UnCleveland Clinic Fairview HospitalComment on above:Performed By: #### [id number] ####[facility] ([facility])[address] [place] [address] Sodium [Moles/Vol]136 mmol/OJqxonf065-929LinilhrhctCleveland Clinic Fairview Hospital Comment on above:Performed By: #### [id number] ####[facility] ([facility])[address] [place], [place] [address]Grpl nitrogen [Mass/Vol]13 mg/dLNormal7-25 [facility] HospitalComment on above:Performed By: #### [id number] ####[facility] ([facility])[address] [place], [place] [address]YLFV NITROGEN/CREATININE (MASS RATIO) IN SER/PLAS10.7NormalUniversMemorial Health System Selby General HospitalComment on above:Performed By: #### [id number] ####[facility] ([facility])[address] [facility]EN[facility] [place], [place] [address]MNX WITH AUTO DIFFERENTIALon 10-71-7402Seqqxcerk (Bld) [#/Vol]0.01 10*3/uLNormal0.00-0.20UnCleveland Clinic Fairview HospitalComment on above:Performed By: #### [id number] ####[facility] ([facility])[address] [place], [place] [address]Xoikvurov/100 WBC (Bld)0.1 %Normal 0.0-1.0UnCleveland Clinic Fairview HospitalComment on above:Performed By: #### [id number] ####[facility] ([facility])[address] [place] [address] Eosinophils (Bld) [#/Vol]0.00 10*3/uLNormal0.00-0.50UnCleveland Clinic Fairview HospitalComment on above:Performed By: #### [id number] ####[facility] ([facility])[address] [place], [place] [address]Kwarsmqykda/100 WBC (Bld)0.0 %Normal 0.0-6.0UnCleveland Clinic Fairview HospitalComment on above:Performed By: #### [id number] ####[facility] ([facility])[address] [place] [address] Erythrocyte distribution width (RBC) [Ratio]14.7 %Nxjixp50.5-15.0UnCleveland Clinic Fairview HospitalComment on above:Performed By: #### [id number] ####[facility] ([facility])[address] [place], [place] [address]JCHUKJDGKTK MEAN CORPUSCULAR HEMOGLOBIN CONCENTRATION (G/DL) BY FQOGNFRCT35.3 g/vCCtlmzw76.0-35.0 [facility] HospitalComment on above:Performed By: #### [id number] ####[facility] ([facility])[address] [place], [place] [address]Cehrpqjkmg (Bld) [Volume fraction]25.1 %Low39.0-50.0UnCleveland Clinic Fairview HospitalComment on above:Performed By: #### [id number] ####[facility] ([facility])[address] [place], [place] [address]Tqenoarcpl (Bld) [Mass/Vol]8.6 g/dLLow13.0-17.0UnCleveland Clinic Fairview HospitalComment on above:Performed By: #### [id number] ####[facility] ([facility])[address] [place], [place] [address]Obwgmwdx granulocytes (Bld) [#/Vol]0.07 10*3/uLNormal0.00-0.20UnCleveland Clinic Fairview Hospital Comment on above:Performed By: #### [id number] ####[facility] ([facility])[address] [place], [place] [address]Ycalryhi granulocytes/100 WBC (Bld)0.9 %Normal 0.0-1.0UnCleveland Clinic Fairview HospitalComment on above:Performed By: #### [id number] ####[facility] ([facility])[address] [facility]IEENCOM[facility] [place] [place] [address] Lymphocytes (Bld) [#/Vol]0.50 10*3/uLLow1.20-4.00UnCleveland Clinic Fairview HospitalComment on above:Performed By: #### [id number] ####[facility] ([facility])[address] [facility]IEENCOM[facility] [place], [place] [address]Dyeqiftfmws/100 WBC (Bld)6.8 %Low 20.0-45.0UnCleveland Clinic Fairview HospitalComment on above:Performed By: #### [id number] ####[facility] ([facility])[address] [place], [place] [address]IYA (RBC) [Entitic mass]32.2 smMvdgca54.0-33.0UnCleveland Clinic Fairview Hospital Comment on above:Performed By: #### [id number] ####[facility] ([facility])[address] [facility] [place] [address]AHP (RBC) [Entitic vol]94.0 qDTcvpzt58.0-98.0 [facility] HospitalComment on above:Performed By: #### [id number] ####[facility] ([facility])[address] [facility]GIEENCOM[facility] [place], [place] [address]Cshagpqwy (Bld) [#/Vol]0.91 10*3/uLNormal0.10-1.00UnCleveland Clinic Fairview HospitalComment on above:Performed By: #### [id number] ####[facility] ([facility])[address] [place], [place] [address]Axeheuafj/100 WBC (Bld)12.3 %High5.0-12.0UnCleveland Clinic Fairview HospitalComment on above:Performed By: #### [id number] ####[facility] ([facility] [facility] [place], [place] [address]Nakfryryawd (Bld) [#/Vol]5.90 10*3/uL Normal1.60-7.60UnCleveland Clinic Fairview HospitalComment on above:Performed By: #### [id number] ####[facility] ([facility])[address] [address] Neutrophils/100 WBC (Bld)79.9 %High40.0-72.0UnCleveland Clinic Fairview Hospital Comment on above:Performed By: #### [id number] ####[facility] ([facility])[address] [address]KTGH (PER 100 WBCS) BY AUTOMATED COUNT1.1 %High0 [facility] HospitalComment on above:Performed By: #### [id number] ####[facility] ([facility])[address] [address]XXFBDBKHH (10*3/UL) IN BLOOD AUTOMATED YKJSH075 10*3/uRMdpraw659-694JjatxfkxklCleveland Clinic Fairview HospitalComment on above:Performed By: #### [id number] ####[facility] ([facility])[address] [address]LOH (Bld) [#/Vol]2.67 10*6/uLLow 4.20-5.70UnCleveland Clinic Fairview HospitalComment on above:Performed By: #### [id number] ####[facility] ([facility])[address] [address]CVJ (Bld) [#/Vol]7.39 10*3/uLNormal4.00-10.60UnCleveland Clinic Fairview Hospital Comment on above:Performed By: #### [id number] ####[facility] ([facility])[address] [address]XJZYCKHPHZQTX METABOLIC PANELon 72-45-1765Ffypvlx [Mass/Vol]3.4 g/dLLow3.5-5.7UnCleveland Clinic Fairview HospitalComment on above: Performed By: #### [id number] ####[facility] ([facility])[address] [address]NRF [Catalytic activity/Vol]65 U/SNweiaj20-202UsshrjqgpdCleveland Clinic Fairview HospitalComment on above:Performed By: #### [id number] ####[facility] ([facility])[address] [place], [place] [address]VSN [Catalytic activity/Vol]182 U/L High7-52UnCleveland Clinic Fairview HospitalComment on above:Performed By: #### [id number] ####[facility] ([facility])[address] [place], [place] [address]Rhagn gap [Moles/Vol]10 mmol/LNormal7-20UnCleveland Clinic Fairview HospitalComment on above:Performed By: #### [id number] ####[facility] ([facility])[address] [place], [place] [address]ZWY [Catalytic activity/Vol]86 U/FWtjk45-56LnktyohddnCleveland Clinic Fairview HospitalComment on above:Performed By: #### [id number] ####[facility] ([facility])[address] [place], [place] [address]Xugjqlmwx [Mass/Vol]0.9 mg/dL Normal0.3-1.0UnCleveland Clinic Fairview HospitalComment on above:Performed By: #### [id number] ####[facility] ([facility])[address] [place] [address] Calcium [Mass/Vol]7.9 mg/dLLow8.6-10.3UnCleveland Clinic Fairview HospitalComment on above:Performed By: #### [id number] ####[facility] ([facility])[address] [place], [place] [address]Kijlwgdc [Moles/Vol]94 mmol/NAif20-851GhvozhpjpuCleveland Clinic Fairview HospitalComment on above:Performed By: #### [id number] ####[facility] ([facility])[address] [place], [place] [address]AN4 [Moles/Vol]35 mmol/GKbny85-83 [facility] HospitalComment on above:Performed By: #### [id number] ####[facility] ([facility])[address] [place], [place] [address]Prvxwjvxar [Mass/Vol]1.04 mg/dLNormal0.70-1.30UnCleveland Clinic Fairview HospitalComment on above:Performed By: #### [id number] ####[facility] ([facility])[address] [place] [address]LQPPGPHDOW FILTRATION RATE ML/MIN/1.73 SQ M.OGXDVTTUF18.7 mL/min/1.73m*2Normal>60.0UnCleveland Clinic Fairview HospitalComment on above: Result Comment: [facility]???s estimated glomerular filtration rate (eGFR) will [...] potential consequences that do not disproportionately affect anyone group of individuals.Performed By: #### [id number] ####[facility] ([facility])[address] [place] [address]Ljewtve [Mass/Vol]115 mg/iUCofw95-208YpxrzoiztbCleveland Clinic Fairview HospitalComment on above:Performed By: #### [id number] ####[facility] ([facility])[address] [place] [address]Zdzccysdq [Moles/Vol]3.7 mmol/L Normal3.5-5.1UnCleveland Clinic Fairview HospitalComment on above:Performed By: #### [id number] ####[facility] ([facility])[address] [place] [address] Protein [Mass/Vol]5.9 g/dLLow6.0-8.3UnCleveland Clinic Fairview HospitalComment on above:Performed By: #### [id number] ####[facility] ([facility])[address] [place] [address]Gltlgz [Moles/Vol]135 mmol/ECft320-295ZervnncrukCleveland Clinic Fairview HospitalComment on above:Performed By: #### [id number] ####[facility] ([facility])[address] [place] [address]Tqge nitrogen [Mass/Vol]12 mg/dLNormal 7-25UnCleveland Clinic Fairview HospitalComment on above:Performed By: #### [id number] ####[facility] ([facility])[address] [place] [address]GQSZ NITROGEN/CREATININE (MASS RATIO) IN SER/PLAS11.5NormalUniversMemorial Health System Selby General HospitalComment on above:Performed By: #### [id number] ####[facility] ([facility])[address] [place], [place] [address]GOKJIMDEFhb 60-49-4011Bygtrdzzu [Mass/Vol]1.9 mg/dLNormal1.9-2.7UnCleveland Clinic Fairview HospitalComment on above:Performed By: #### [id number] ####[facility] ([facility])[address] [place], [place] [address]Parpvbasb [Mass/Vol]2.0 mg/dLNormal1.9-2.7UnCleveland Clinic Fairview HospitalComment on above:Performed By: #### [id number] ####[facility] ([facility])[address] [place], [place] [address]Usvubjgrh [Mass/Vol]2.1 mg/dLNormal1.9-2.7UnCleveland Clinic Fairview HospitalComment on above:Performed By: #### [id number] ####[facility] ([facility])[address] [place] [address] PHOSPHORUSon 87-12-8017Ckutniprk [Mass/Vol]2.4 mg/dLLow2.5-5.0UnCleveland Clinic Fairview HospitalComment on above:Performed By: #### [id number] ####[facility] ([facility])[address] [place], [place] [address]Rqjxthcag [Mass/Vol]2.6 mg/dLNormal2.5-5.0UnCleveland Clinic Fairview HospitalComment on above:Performed By: #### [id number] ####[facility] ([facility] [place] [address] Magnesium [Mass/Vol]2.7 mg/dLNormal2.5-5.0UnCleveland Clinic Fairview Hospital Comment on above:Performed By: #### [id number] ####[facility] ([facility])[address] [place] [address]po [id number] patient is Moderately Unstable - Medium risk of patient condition declining or worsening The patient's goals for the shift include comfort The clinical goals for the shift include VSSNormalUniversity of Baylor Scott & White Medical Center – Round RockBASIC METABOLIC PANELon 85-87-2905Kjfpg gap [Moles/Vol]11 mmol/LNormal7-20 [facility] HospitalComment on above:Performed By: #### [id number] ####[facility] ([facility])[address] [place], [place] [address]Kjzlywd [Mass/Vol]7.9 mg/dLLow8.6-10.3UnCleveland Clinic Fairview HospitalComment on above:Performed By: #### [id number] ####[facility] ([facility])[address] [place], [place] [address]Bagtbfpu [Moles/Vol]94 mmol/NVnk83-037EatkvnpmhwCleveland Clinic Fairview HospitalComment on above:Performed By: #### [id number] ####[facility] ([facility])[address] [place], [place] [address]CI3 [Moles/Vol]34 mmol/EIzpy71-27 [facility] HospitalComment on above:Performed By: #### [id number] ####[facility] ([facility])[address] [place], [place] [address]Ptudhuilec [Mass/Vol]1.19 mg/dLNormal0.70-1.30UnCleveland Clinic Fairview HospitalComment on above:Performed By: #### [id number] ####[facility] ([facility])[address] [place], [place] [address]NJEPQZBDIB FILTRATION RATE ML/MIN/1.73 SQ M.TKQDNHYGS73.1 mL/min/1.73m*2Normal>60.0UnCleveland Clinic Fairview HospitalComment on above: Result Comment: [facility]???s estimated glomerular filtration rate (eGFR) will [...] potential consequences that do not disproportionately affect anyone group of individuals.Performed By: #### [id number] ####[facility] ([facility])[address] [place], [place] [address]Dmiwrmf [Mass/Vol]135 mg/lJImfw65-152OmyzntfdhkCleveland Clinic Fairview HospitalComment on above:Performed By: #### [id number] ####[facility] ([facility])[address] [place], [place] [address]Nagvuqlyh [Moles/Vol]3.5 mmol/L Normal3.5-5.1UnCleveland Clinic Fairview HospitalComment on above:Performed By: #### [id number] ####[facility] ([facility])[address] [place] [address] Sodium [Moles/Vol]135 mmol/BRbz695-720HzjlppfzyjCleveland Clinic Fairview HospitalComment on above:Performed By: #### [id number] ####[facility] ([facility])[address] [place], [place] [address]Pfcu nitrogen [Mass/Vol]14 mg/dLNormal7-25UnCleveland Clinic Fairview HospitalComment on above:Performed By: #### [id number] ####[facility] ([facility])[address] [place], [place] [address]OGTV NITROGEN/CREATININE (MASS RATIO) IN SER/PLAS11.8NormalUniversMemorial Health System Selby General HospitalComment on above: Performed By: #### [id number] ####[facility] ([facility])[address] [place], [place] [address]Ufngv gap [Moles/Vol]10 mmol/LNormal7-20UnCleveland Clinic Fairview HospitalComment on above:Performed By: #### [id number] ####[facility] ([facility])[address] [place] [address]Cafuwnh [Mass/Vol]7.7 mg/dLLow8.6-10.3 [facility] HospitalComment on above:Performed By: #### [id number] ####[facility] ([facility])[address] [place] [address]Dlyfwhxm [Moles/Vol]94 mmol/XGaj01-404TsjcbjkyesCleveland Clinic Fairview HospitalComment on above:Performed By: #### [id number] ####[facility] ([facility])[address] [place] [address]NZ7 [Moles/Vol]34 mmol/IKxut35-77YqaoyrykzpCleveland Clinic Fairview HospitalComment on above:Performed By: #### [id number] ####[facility] ([facility])[address] [place] [address]Xtnymkmboh [Mass/Vol]1.22 mg/dLNormal 0.70-1.30UnCleveland Clinic Fairview HospitalComment on above:Performed By: #### [id number] ####[facility] ([facility])[address] [place] [address]BQPCZANCFW FILTRATION RATE ML/MIN/1.73 SQ M.NJAFNRXWD29.2 mL/min/1.73m*2Normal>60.0 [facility] HospitalComment on above:Result Comment: The [facility]???s estimated glomerular filtration rate (eG FR) will no longer include consideration of race [...] potential consequences that do not disproportionately affect anyone group of individuals. Performed By: #### [id number] ####[facility] ([facility])[address] [place], [place] [address]Wrxmoht [Mass/Vol]141 mg/gNQqge17-733IkpevpvdjlCleveland Clinic Fairview HospitalComment on above:Performed By: #### [id number] ####[facility] ([facility])[address] [place], [place] [address]Rqlpzftjc [Moles/Vol]3.7 mmol/LNormal 3.5-5.1UnCleveland Clinic Fairview HospitalComment on above:Performed By: #### [id number] ####[facility] ([facility])[address] [place], [place] [address]Veaimu [Moles/Vol]134 mmol/RTtp602-643PppcnozbctCleveland Clinic Fairview HospitalComment on above:Performed By: #### [id number] ####[facility] ([facility])[address] [place], [place] [address]Ybnu nitrogen [Mass/Vol]15 mg/dLNormal7-25UnCleveland Clinic Fairview HospitalComment on above:Performed By: #### [id number] ####[facility] ([facility])[address] [place], [place] [address]QPOJ NITROGEN/CREATININE (MASS RATIO) IN SER/PLAS12.3NormalUniversMemorial Health System Selby General HospitalComment on above: Performed By: #### [id number] ####[facility] ([facility])[address] [place], [place] [address]Ahwfv gap [Moles/Vol]8 mmol/LNormal7-20UnCleveland Clinic Fairview HospitalComment on above:Performed By: #### [id number] ####[facility] ([facility])[address] [place], [place] [address]Cdhqwmf [Mass/Vol]7.6 mg/dLLow8.6-10.3 [facility] HospitalComment on above:Performed By: #### [id number] ####[facility] ([facility])[address] [place], [place] [address]Nwywsyqo [Moles/Vol]95 mmol/CPaw95-301CegnrstzxfCleveland Clinic Fairview HospitalComment on above:Performed By: #### [id number] ####[facility] ([facility] [place] [address]PZ2 [Moles/Vol]35 mmol/MYmja10-22WmewkrdplpCleveland Clinic Fairview HospitalComment on above:Performed By: #### [id number] ####[facility] ([facility])[address] [place] [address]Vuqepkausw [Mass/Vol]1.27 mg/dLNormal 0.70-1.30UnCleveland Clinic Fairview HospitalComment on above:Performed By: #### [id number] ####[facility] ([facility])[address], [place] [address]WTYGXVCNPW FILTRATION RATE ML/MIN/1.73 SQ M.KXCKWYUVA18.2 mL/min/1.73m*2Normal>60.0 [facility] HospitalComment on above:Result Comment: The [facility]???s estimated glomerular filtration rate (eG FR) will no longer include consideration of race [...] potential consequences that do not disproportionately affect anyone group of individuals. Performed By: #### [id number] ####[facility] ([facility])[address], [place] [address]Hmdxjvc [Mass/Vol]133 mg/wRVnmm45-205HjwtageivvCleveland Clinic Fairview HospitalComment on above:Performed By: #### [id number] ####[facility] ([facility])[address], [place] [address]Lretfjmhh [Moles/Vol]3.8 mmol/LNormal 3.5-5.1UnCleveland Clinic Fairview HospitalComment on above:Performed By: #### [id number] ####[facility] ([facility])[address], [place] [address]Bahmzp [Moles/Vol]134 mmol/ZMwe576-675ZlgnjizpwzCleveland Clinic Fairview HospitalComment on above:Performed By: #### [id number] ####[facility] ([facility])[address] [place], [place] [address]Ypeo nitrogen [Mass/Vol]16 mg/dLNormal7-25UnCleveland Clinic Fairview HospitalComment on above:Performed By: #### [id number] ####[facility] ([facility])[address] [place], [place] [address]KOTO NITROGEN/CREATININE (MASS RATIO) IN SER/PLAS12.6NormalUniversMemorial Health System Selby General HospitalComment on above: Performed By: #### [id number] ####[facility] ([facility])[address] [place], [place] [address]Heesf gap [Moles/Vol]9 mmol/LNormal7-20UnCleveland Clinic Fairview HospitalComment on above:Performed By: #### [id number] ####[facility] ([facility])[address], [place] [address]Zeizsex [Mass/Vol]8.0 mg/dLLow8.6-10.3 [facility] HospitalComment on above:Performed By: #### [id number] ####[facility] ([facility])[address], [place] [address]Ihrgnkcf [Moles/Vol]95 mmol/XBwf20-294EkitwwjmaxCleveland Clinic Fairview HospitalComment on above:Performed By: #### [id number] ####[facility] ([facility])[address], [place] [address]SB1 [Moles/Vol]35 mmol/ZExyh03-90JdmzgigkyoCleveland Clinic Fairview HospitalComment on above:Performed By: #### [id number] ####[facility] ([facility])[address], [place] [address]Mwpuhhbfib [Mass/Vol]1.29 mg/dLNormal 0.70-1.30UnCleveland Clinic Fairview HospitalComment on above:Performed By: #### [id number] ####[facility] ([facility])[address] [place], [place] [address]XSLCWICQHI FILTRATION RATE ML/MIN/1.73 SQ M.CWQBNWGMQ22.0 mL/min/1.73m*2Low>60.0UnCleveland Clinic Fairview HospitalComment on above:Result Comment: The [facility]???s estimated glomerular filtration rate (eGFR) will [...] potential consequences that do not disproportionately affect anyone group of individuals. Performed By: #### [id number] ####[facility] ([facility])[address] [place], [place] [address]Rqcwluc [Mass/Vol]95 mg/zFYmdeju84-207KhlzjckltsCleveland Clinic Fairview HospitalComment on above:Performed By: #### [id number] ####[facility] ([facility])[address], [place] [address]Dqurrrivl [Moles/Vol]3.7 mmol/LNormal 3.5-5.1UnCleveland Clinic Fairview HospitalComment on above:Performed By: #### [id number] ####[facility] ([facility])[address] [place], [place] [address]Ynqqlj [Moles/Vol]135 mmol/ICeh586-967HhdfnpjmvfCleveland Clinic Fairview HospitalComment on above:Performed By: #### [id number] ####[facility] ([facility])[address], [place] [address]Mqwy nitrogen [Mass/Vol]16 mg/dLNormal7-25UnCleveland Clinic Fairview HospitalComment on above:Performed By: #### [id number] ####[facility] ([facility])[address], [place] [address]KMBY NITROGEN/CREATININE (MASS RATIO) IN SER/PLAS12.4NormalUniversMemorial Health System Selby General HospitalComment on above: Performed By: #### [id number] ####[facility] ([facility] [place], [place] [address]Irxjq gap [Moles/Vol]10 mmol/LNormal7-20UnCleveland Clinic Fairview HospitalComment on above:Performed By: #### [id number] ####[facility] ([facility])[address] [place], [place] [address]Gshdlrr [Mass/Vol]7.8 mg/dLLow8.6-10.3 [facility] HospitalComment on above:Performed By: #### [id number] ####[facility] ([facility])[address], [place] [address]Gycmywzj [Moles/Vol]95 mmol/JThj81-896BsupdomzuxCleveland Clinic Fairview HospitalComment on above:Performed By: #### [id number] ####[facility] ([facility])[address], [place] [address]ZH5 [Moles/Vol]33 mmol/AWzav45-18ErujijbuysCleveland Clinic Fairview HospitalComment on above:Performed By: #### [id number] ####[facility] ([facility])[address], [place] [address]Wkhkivkaky [Mass/Vol]1.32 mg/dLHigh 0.70-1.30UnCleveland Clinic Fairview HospitalComment on above:Performed By: #### [id number] ####[facility] ([facility])[address], [place] [address]CJLFKQPLPF FILTRATION RATE ML/MIN/1.73 SQ M.KNGMKXWLW84.4 mL/min/1.73m*2Low>60.0UnCleveland Clinic Fairview HospitalComment on above:Result Comment: The [facility]???s estimated glomerular filtration rate (eGFR) will [...] potential consequences that do not disproportionately affect anyone group of individuals. Performed By: #### [id number] ####[facility] ([facility])[address] [place] [address]Ifitslu [Mass/Vol]103 mg/mURrfv93-136UtqzcywqtcCleveland Clinic Fairview HospitalComment on above:Performed By: #### [id number] ####[facility] ([facility])[address] [place] [address]Dunkslxdr [Moles/Vol]3.6 mmol/LNormal 3.5-5.1UnCleveland Clinic Fairview HospitalComment on above:Performed By: #### [id number] ####[facility] ([facility])[address] [place] [address]Htzeba [Moles/Vol]134 mmol/VBjd503-583AnaebpmjzhCleveland Clinic Fairview HospitalComment on above:Performed By: #### [id number] ####[facility] ([facility])[address] [place] [address]Dwsr nitrogen [Mass/Vol]18 mg/dLNormal7-25UnCleveland Clinic Fairview HospitalComment on above:Performed By: #### [id number] ####[facility] ([facility])[address] [place] [address]GVNX NITROGEN/CREATININE (MASS RATIO) IN SER/PLAS13.6NormalUniversMemorial Health System Selby General HospitalComment on above: Performed By: #### [id number] ####[facility] ([facility])[address] [place] [address]INO WITH AUTO DIFFERENTIALon [phone] (Bld) [#/Vol]0.01 10*3/uLNormal0.00-0.20UnCleveland Clinic Fairview HospitalComment on above: Performed By: #### [id number] ####[facility] ([facility])[address] [address]Bisczpyyi/100 WBC (Bld)0.1 %Normal0.0-1.0UnCleveland Clinic Fairview HospitalComment on above:Performed By: #### [id number] ####[facility] ([facility])[address] [place], [place] [address]Aydrcqjzsgi (Bld) [#/Vol]0.01 10*3/uL Normal0.00-0.50UnCleveland Clinic Fairview HospitalComment on above:Performed By: #### [id number] ####[facility] ([facility])[address] [place] [address] Eosinophils/100 WBC (Bld)0.1 %Normal0.0-6.0UnCleveland Clinic Fairview Hospital Comment on above:Performed By: #### [id number] ####[facility] ([facility])[address] [place], [place] [address]Htdmayagqgr distribution width (RBC) [Ratio]14.7 % Evcsdi50.5-15.0UnCleveland Clinic Fairview HospitalComment on above:Performed By: #### [id number] ####[facility] ([facility])[address] [place] [address] ERYTHROCYTE MEAN CORPUSCULAR HEMOGLOBIN CONCENTRATION (G/DL) BY NCWYHEEBS89.3 g/sULkuksb81.0-35.0UnCleveland Clinic Fairview HospitalComment on above:Performed By: #### [id number] ####[facility] ([facility])[address] [place], [place] [address]Dzuoaihhho (Bld) [Volume fraction]23.9 %Low39.0-50.0UnCleveland Clinic Fairview HospitalComment on above:Performed By: #### [id number] ####[facility] ([facility])[address] [place], [place] [address]Lgygioaaqa (Bld) [Mass/Vol]8.2 g/dLLow 13.0-17.0UnCleveland Clinic Fairview HospitalComment on above:Performed By: #### [id number] ####[facility] ([facility])[address] [place], [place] [address]Jmwwjasw granulocytes (Bld) [#/Vol]0.05 10*3/uLNormal0.00-0.20UnCleveland Clinic Fairview HospitalComment on above:Performed By: #### [id number] ####[facility] ([facility])[address] [place], [place] [address]Kurqpsjz granulocytes/100 WBC (Bld)0.6 %Normal0.0-1.0UnCleveland Clinic Fairview HospitalComment on above:Performed By: #### [id number] ####[facility] ([facility])[address] [place] [address] Lymphocytes (Bld) [#/Vol]0.68 10*3/uLLow1.20-4.00UnCleveland Clinic Fairview HospitalComment on above:Performed By: #### [id number] ####[facility] ([facility])[address] [place], [place] [address]Vdpmwvpeiih/100 WBC (Bld)7.8 %Low 20.0-45.0UnCleveland Clinic Fairview HospitalComment on above:Performed By: #### [id number] ####[facility] ([facility])[address] [place], [place] [address]UAL (RBC) [Entitic mass]31.8 lvZrczxl61.0-33.0UnCleveland Clinic Fairview Hospital Comment on above:Performed By: #### [id number] ####[facility] ([facility])[address] [place], [place] [address]SVN (RBC) [Entitic vol]92.6 dEGxbqdw60.0-98.0 [facility] HospitalComment on above:Performed By: #### [id number] ####[facility] ([facility])[address] [place], [place] [address]Yctmktbjq (Bld) [#/Vol]0.87 10*3/uLNormal0.10-1.00UnCleveland Clinic Fairview HospitalComment on above:Performed By: #### [id number] ####[facility] ([facility])[address] [place], [place] [address]Yihghvngi/100 WBC (Bld)9.9 %Normal5.0-12.0[facility] Dubose Medical CenterComment on above:Performed By: #### [id number] ####[facility] ([facility])[address] [place] [address]Wzyjovrnrlg (Bld) [#/Vol] 7.15 10*3/uLNormal1.60-7.60UnCleveland Clinic Fairview HospitalComment on above: Performed By: #### [id number] ####[facility] ([facility])[address] [address]Xaptsqcuouy/100 WBC (Bld)81.5 %High40.0-72.0UnCleveland Clinic Fairview HospitalComment on above:Performed By: #### [id number] ####[facility] ([facility])[address] [address]HQEC (PER 100 WBCS) BY AUTOMATED COUNT1.1 %Kbpm9ZqkyqanvurCleveland Clinic Fairview HospitalComment on above: Performed By: #### [id number] ####[facility] ([facility])[address] [place] [address]FVZTEOWGL (10*3/UL) IN BLOOD AUTOMATED [id number] 10*3/uLLow 150-400UnCleveland Clinic Fairview HospitalComment on above:Performed By: #### [id number] ####[facility] ([facility])[address] [place] [address]CDX (Bld) [#/Vol]2.58 10*6/uLLow4.20-5.70UnCleveland Clinic Fairview HospitalComment on above:Performed By: #### [id number] ####[facility] ([facility])[address] [address]LCE (Bld) [#/Vol]8.77 10*3/uLNormal4.00-10.60UnCleveland Clinic Fairview HospitalComment on above:Performed By: #### [id number] ####[facility] ([facility])[address] [place] [address]XOZGYPORDLZPS METABOLIC PANELon 42-85-8231Devkjyt [Mass/Vol]3.2 g/dLLow3.5-5.7UnCleveland Clinic Fairview HospitalComment on above:Performed By: #### [id number] ####[facility] ([facility])[address], [place] [address]DSQ [Catalytic activity/Vol]54 U/L Mrvqtw10-911LlpuwaezvmCleveland Clinic Fairview HospitalComment on above:Performed By: #### [id number] ####[facility] ([facility])[address], [place] [address]IWY [Catalytic activity/Vol]211 U/LHigh7-52UnCleveland Clinic Fairview Hospital Comment on above:Performed By: #### [id number] ####[facility] ([facility])[address] [place], [place] [address]Hhpmy gap [Moles/Vol]9 mmol/LNormal7-20UnCleveland Clinic Fairview HospitalComment on above:Performed By: #### [id number] ####[facility] ([facility])[address] [place], [place] [address]CSW [Catalytic activity/Vol]119 U/UMamv36-72VxxzqydywyCleveland Clinic Fairview HospitalComment on above:Performed By: #### [id number] ####[facility] ([facility])[address] [place], [place] [address]Leiirworm [Mass/Vol]0.8 mg/dLNormal0.3-1.0UnCleveland Clinic Fairview HospitalComment on above:Performed By: #### [id number] ####[facility] ([facility])[address] [place], [place] [address]Cddjopg [Mass/Vol]8.0 mg/dLLow 8.6-10.3UnCleveland Clinic Fairview HospitalComment on above:Performed By: #### [id number] ####[facility] ([facility])[address] [place], [place] [address]Vkcwqvaq [Moles/Vol]94 mmol/RVrn13-587RfzsaqudwxCleveland Clinic Fairview HospitalComment on above:Performed By: #### [id number] ####[facility] ([facility])[address] [place], [place] [address]OC8 [Moles/Vol]35 mmol/XJwma62-84XpdkoemlemCleveland Clinic Fairview HospitalComment on above:Performed By: #### [id number] ####[facility] ([facility])[address] [address]Denavjpnlm [Mass/Vol]1.21 mg/dLNormal 0.70-1.30UnCleveland Clinic Fairview HospitalComment on above:Performed By: #### [id number] ####[facility] ([facility])[address] [facility] [place] [address]GCQATPFXNS FILTRATION RATE ML/MIN/1.73 SQ M.ENWBYSKMG86.8 mL/min/1.73m*2Normal>60.0 [facility] HospitalComment on above:Result Comment: The [facility]???s estimated glomerular filtration rate (eG FR) will no longer include consideration of race [...] potential consequences that do not disproportionately affect anyone group of individuals. Performed By: #### [id number] ####[facility] ([facility])[address] [place] [address]Qaobmzm [Mass/Vol]100 mg/oHZkzruv41-108WxqsrutyngCleveland Clinic Fairview HospitalComment on above:Performed By: #### [id number] ####[facility] ([facility])[address] [place] [address]Aqiqkgwfe [Moles/Vol]3.5 mmol/LNormal 3.5-5.1UnCleveland Clinic Fairview HospitalComment on above:Performed By: #### [id number] ####[facility] ([facility])[address] [place] [address]Urhbefs [Mass/Vol]5.6 g/dLLow6.0-8.3UnCleveland Clinic Fairview HospitalComment on above: Performed By: #### [id number] ####[facility] ([facility])[address] [address]Hxmsin [Moles/Vol]134 mmol/QStq952-988JwltlmhypuCleveland Clinic Fairview HospitalComment on above:Performed By: #### [id number] ####[facility] ([facility])[address] [place] [address]Pceq nitrogen [Mass/Vol]16 mg/dLNormal 7-25UnCleveland Clinic Fairview HospitalComment on above:Performed By: #### [id number] ####[facility] ([facility])[address] [place] [address]XADT NITROGEN/CREATININE (MASS RATIO) IN SER/PLAS13.2NormalUnCleveland Clinic Fairview HospitalComment on above:Performed By: #### [id number] ####[facility] ([facility])[address] [place] [address]WOZAAHFgr [phone] [facility] HospitalMAGNESIUMon 86-51-3689Iezpkqbmr [Mass/Vol]1.8 mg/dLLow1.9-2.7UnCleveland Clinic Fairview HospitalComment on above:Performed By: #### [id number] ####[facility] ([facility])[address] [place] [address] Magnesium [Mass/Vol]1.9 mg/dLNormal1.9-2.7UnCleveland Clinic Fairview Hospital Comment on above:Performed By: #### [id number] ####[facility] ([facility])[address], [place] [address]Noxpaoida [Mass/Vol]1.9 mg/dLNormal1.9-2.7 [facility] HospitalComment on above:Performed By: #### [id number] ####[facility] ([facility])[address], [place] [address]Lifejpxxe [Mass/Vol]2.0 mg/dLNormal1.9-2.7UnCleveland Clinic Fairview HospitalComment on above:Performed By: #### [id number] ####[facility] ([facility])[address], [place] [address]Utmzwclff [Mass/Vol]2.0 mg/dLNormal1.9-2.7UnCleveland Clinic Fairview HospitalComment on above:Performed By: #### [id number] ####[facility] ([facility])[address], [place] [address]Aaghbncue [Mass/Vol]2.0 mg/dLNormal1.9-2.7UnCleveland Clinic Fairview HospitalComment on above:Performed By: #### [id number] ####[facility] ([facility])[address] [place] [address] PHOSPHORUSon [phone] [Mass/Vol]2.2 mg/dLLow2.5-5.0UnCleveland Clinic Fairview HospitalComment on above:Performed By: #### [id number] ####[facility] ([facility])[address], [place] [address]Odchwwkyd [Mass/Vol]2.3 mg/dLLow2.5-5.0UnCleveland Clinic Fairview HospitalComment on above:Performed By: #### [id number] ####[facility] ([facility])[address] [place] [address] Magnesium [Mass/Vol]1.7 mg/dLLow2.5-5.0UnC[facility] Clinic Fairview Hospital Comment on above:Performed By: #### [id number] ####[facility] ([facility])[address], [place] [address]Sxxcplrac [Mass/Vol]1.8 mg/dLLow2.5-5.0UnCleveland Clinic Fairview HospitalComment on above:Performed By: #### [id number] ####[facility] ([facility])[address] [place], [place] [address]Yjiytbqgc [Mass/Vol]1.8 mg/dLLow2.5-5.0UnCleveland Clinic Fairview HospitalComment on above:Performed By: #### [id number] ####[facility] ([facility])[address] [place] [address] Magnesium [Mass/Vol]2.1 mg/dLLow2.5-5.0UnC[facility] Clinic [facility] Hospital Comment on above:Performed By: #### [id number] ####[facility] ([facility])[address], [place] [address]ISJEMYBse [phone] (UMOL/L) IN JNTAKL63 umol/LPrerpz94-14LfrnjisuofCleveland Clinic Fairview HospitalComment on above:Performed By: #### [id number] ####[facility] ([facility])[address] [place] [address] BASIC METABOLIC PANELon [phone] gap [Moles/Vol]10 mmol/LNormal7-20 [facility] HospitalComment on above:Performed By: #### [id number] ####[facility] ([facility])[address] [place], [place] [address]Hojfwnv [Mass/Vol]7.7 mg/dLLow8.6-10.3UnCleveland Clinic Fairview HospitalComment on above:Performed By: #### [id number] ####[facility] ([facility])[address] [place], [place] [address]Vkzjwiqx [Moles/Vol]95 mmol/DHfk19-799CaepqmntxhCleveland Clinic Fairview HospitalComment on above:Performed By: #### [id number] ####[facility] ([facility])[address] [place], [place] [address]QT6 [Moles/Vol]33 mmol/OWori55-22 [facility] HospitalComment on above:Performed By: #### [id number] ####[facility] ([facility])[address] [place], [place] [address]Tqlrolyoke [Mass/Vol]1.46 mg/dLHigh0.70-1.30UnCleveland Clinic Fairview HospitalComment on above:Performed By: #### [id number] ####[facility] ([facility])[address] [place], [place] [address]GLITXKZRJU FILTRATION RATE ML/MIN/1.73 SQ M.QWSPZLNHJ22.7 mL/min/1.73m*2Low>60.0UnCleveland Clinic Fairview HospitalComment on above:Result Comment: The [facility]???s estimated glomerular filtration rate (eGFR) will [...] potential consequences that do not disproportionately affect anyone group of individuals.Performed By: #### [id number] ####[facility] ([facility])[address] [place], [place] [address]Rggayqf [Mass/Vol]114 mg/tQFxox99-919KaiekouqajCleveland Clinic Fairview HospitalComment on above:Performed By: #### [id number] ####[facility] ([facility])[address] [facility] [place] [address]Ddogilspo [Moles/Vol]3.6 mmol/L Normal3.5-5.1UnCleveland Clinic Fairview HospitalComment on above:Performed By: #### [id number] ####[facility] ([facility])[address] [facility] [address] Sodium [Moles/Vol]134 mmol/OGaz697-594JxukhxozcyCleveland Clinic Fairview HospitalComment on above:Performed By: #### [id number] ####[facility] ([facility])[address] [facility] [place] [address]Skia nitrogen [Mass/Vol]20 mg/dLNormal7-25UnCleveland Clinic Fairview HospitalComment on above:Performed By: #### [id number] ####[facility] ([facility])[address] [facility]EN[facility] [place], [place] [address]PDJJ NITROGEN/CREATININE (MASS RATIO) IN SER/PLAS13.7NormalUniversMemorial Health System Selby General HospitalComment on above: Performed By: #### [id number] ####[facility] ([facility])[address] [place], [place] [address]Vzbqo gap [Moles/Vol]12 mmol/LNormal7-20UnCleveland Clinic Fairview HospitalComment on above:Performed By: #### [id number] ####[facility] ([facility])[address] [place] [address]Gzuuhbn [Mass/Vol]8.0 mg/dLLow8.6-10.3 [facility] HospitalComment on above:Performed By: #### [id number] ####[facility] ([facility])[address] [place] [address]Arqbayla [Moles/Vol]93 mmol/BPqe74-992LipnruwbucCleveland Clinic Fairview HospitalComment on above:Performed By: #### [id number] ####[facility] ([facility])[address] [address]QO8 [Moles/Vol]32 mmol/THjuz71-24KxennymzenCleveland Clinic Fairview HospitalComment on above:Performed By: #### [id number] ####[facility] ([facility])[address] [facility] [place] [place] [address]Ggiumhyxsx [Mass/Vol]1.47 mg/dLHigh 0.70-1.30UnCleveland Clinic Fairview HospitalComment on above:Performed By: #### [id number] ####[facility] ([facility])[address] [place] [address]UXLLFKAXUM FILTRATION RATE ML/MIN/1.73 SQ M.RFECVDVOJ64.3 mL/min/1.73m*2Low>60.0UnCleveland Clinic Fairview HospitalComment on above:Result Comment: The [facility]???s estimated glomerular filtration rate (eGFR) will [...] potential consequences that do not disproportionately affect anyone group of individuals. Performed By: #### [id number] ####[facility] ([facility])[address], [place] [address]Cjzyfor [Mass/Vol]113 mg/yGHdrh84-758RxmvufnwtnCleveland Clinic Fairview HospitalComment on above:Performed By: #### [id number] ####[facility] ([facility])[address], [place] [address]Dotkanxqz [Moles/Vol]3.6 mmol/LNormal 3.5-5.1UnCleveland Clinic Fairview HospitalComment on above:Performed By: #### [id number] ####[facility] ([facility])[address], [place] [address]Uwgptr [Moles/Vol]133 mmol/UZqd029-561MlvafuzpanCleveland Clinic Fairview HospitalComment on above:Performed By: #### [id number] ####[facility] ([facility])[address], [place] [address]Mons nitrogen [Mass/Vol]21 mg/dLNormal7-25UnCleveland Clinic Fairview HospitalComment on above:Performed By: #### [id number] ####[facility] ([facility])[address], [place] [address]SMQL NITROGEN/CREATININE (MASS RATIO) IN SER/PLAS14.3NormalUniMercer County Community HospitalComment on above: Performed By: #### [id number] ####[facility] ([facility])[address] [place], [place] [address]Rxiqo gap [Moles/Vol]11 mmol/LNormal7-20UnCleveland Clinic Fairview HospitalComment on above:Performed By: #### [id number] ####[facility] ([facility])[address] [place], [place] [address]Trtazul [Mass/Vol]8.0 mg/dLLow8.6-10.3 [facility] Memorial HospitalComment on above:Performed By: #### [id number] ####[facility] ([facility])[address] [place], [place] [address]Tbvvfrzl [Moles/Vol]94 mmol/MYlm72-782IsbqcpoielCleveland Clinic Fairview HospitalComment on above:Performed By: #### [id number] ####[facility] ([facility] [place] [address]JL0 [Moles/Vol]32 mmol/QFsyh47-55JygwqmypluCleveland Clinic Fairview HospitalComment on above:Performed By: #### [id number] ####[facility] ([facility])[address] [place] [address]Rmjptjienf [Mass/Vol]1.69 mg/dLHigh 0.70-1.30UnCleveland Clinic Fairview HospitalComment on above:Performed By: #### [id number] ####[facility] ([facility])[address] [place] [address]ALLXICDYZX FILTRATION RATE ML/MIN/1.73 SQ M.BMSVVLSYM86.4 mL/min/1.73m*2Low>60.0UnCleveland Clinic Fairview HospitalComment on above:Result Comment: The [facility]???s estimated glomerular filtration rate (eGFR) will [...] potential consequences that do not disproportionately affect anyone group of individuals. Performed By: #### [id number] ####[facility] ([facility])[address] [place] [address]Jfysyty [Mass/Vol]108 mg/sVJutp29-915DrshnqiqeoCleveland Clinic Fairview HospitalComment on above:Performed By: #### [id number] ####[facility] ([facility])[address], [place] [address]Vvjsawmzh [Moles/Vol]3.5 mmol/LNormal 3.5-5.1UnCleveland Clinic Fairview HospitalComment on above:Performed By: #### [id number] ####[facility] ([facility])[address], [place] [address]Ezecbt [Moles/Vol]133 mmol/AIlq995-220DjvlufllpsCleveland Clinic Fairview HospitalComment on above:Performed By: #### [id number] ####[facility] ([facility])[address], [place] [address]Zcgn nitrogen [Mass/Vol]23 mg/dLNormal7-25UnCleveland Clinic Fairview HospitalComment on above:Performed By: #### [id number] ####[facility] ([facility])[address] [place], [place] [address]PDOO NITROGEN/CREATININE (MASS RATIO) IN SER/PLAS13.6NormalUniversMemorial Health System Selby General HospitalComment on above: Performed By: #### [id number] ####[facility] ([facility])[address] [place], [place] [address]Jkbxk gap [Moles/Vol]10 mmol/LNormal7-20UnCleveland Clinic Fairview HospitalComment on above:Performed By: #### [id number] ####[facility] ([facility] [place], [place] [address]Gzkdktj [Mass/Vol]7.8 mg/dLLow8.6-10.3 [facility] HospitalComment on above:Performed By: #### [id number] ####[facility] ([facility])[address], [place] [address]Wlhayhcw [Moles/Vol]95 mmol/MBct81-088NoyzpjnizvCleveland Clinic Fairview HospitalComment on above:Performed By: #### [id number] ####[facility] ([facility])[address], [place] [address]TE2 [Moles/Vol]32 mmol/TYluh24-16QfhdrgptapCleveland Clinic Fairview HospitalComment on above:Performed By: #### [id number] ####[facility] ([facility])[address] [place], [place] [address]Rfkhhsiitt [Mass/Vol]1.72 mg/dLHigh 0.70-1.30UnCleveland Clinic Fairview HospitalComment on above:Performed By: #### [id number] ####[facility] ([facility])[address] [place], [place] [address]ZZGTFOLXRC FILTRATION RATE ML/MIN/1.73 SQ M.QQCCIECJH06.5 mL/min/1.73m*2Low>60.0UnCleveland Clinic Fairview HospitalComment on above:Result Comment: The [facility]???s estimated glomerular filtration rate (eGFR) will [...] potential consequences that do not disproportionately affect anyone group of individuals. Performed By: #### [id number] ####[facility] ([facility])[address] [facility] [place], [place] [address]Epmenek [Mass/Vol]108 mg/rRRvsc48-096RfuxhgodcpCleveland Clinic Fairview HospitalComment on above:Performed By: #### [id number] ####[facility] ([facility])[address] [facility], [place] [address]Ltrdjmsdl [Moles/Vol]3.6 mmol/LNormal 3.5-5.1UnCleveland Clinic Fairview HospitalComment on above:Performed By: #### [id number] ####[facility] ([facility])[address] [facility] [place], [place] [address]Wvasxr [Moles/Vol]133 mmol/MJhi618-055VfarxcoxivCleveland Clinic Fairview HospitalComment on above:Performed By: #### [id number] ####[facility] ([facility])[address] [place] [place], [place] [address]Cudz nitrogen [Mass/Vol]25 mg/dLNormal7-25UnCleveland Clinic Fairview HospitalComment on above:Performed By: #### [id number] ####[facility] ([facility])[address] [facility], [place] [address]KCWE NITROGEN/CREATININE (MASS RATIO) IN SER/PLAS14.5NormalUniversMemorial Health System Selby General HospitalComment on above: Performed By: #### [id number] ####[facility] ([facility])[address], [place] [address]Axtss gap [Moles/Vol]13 mmol/LNormal7-20UnCleveland Clinic Fairview HospitalComment on above:Performed By: #### [id number] ####[facility] ([facility])[address], [place] [address]Ydxbrdw [Mass/Vol]7.1 mg/dLLow8.6-10.3 [facility] HospitalComment on above:Performed By: #### [id number] ####[facility] ([facility])[address], [place] [address]Lqesejmq [Moles/Vol]97 mmol/PBvj41-391PetqjmrbjvCleveland Clinic Fairview HospitalComment on above:Performed By: #### [id number] ####[facility] ([facility])[address], [place] [address]GQ9 [Moles/Vol]26 mmol/BUujswz43-76WqxwvinvegCleveland Clinic Fairview HospitalComment on above:Performed By: #### [id number] ####[facility] ([facility])[address], [place] [address]Czzruhdifw [Mass/Vol]2.17 mg/dLHigh 0.70-1.30UnCleveland Clinic Fairview HospitalComment on above:Performed By: #### [id number] ####[facility] ([facility])[address], [place] [address]BMQLSAJBDG FILTRATION RATE ML/MIN/1.73 SQ M.PIGSRAGSU49.2 mL/min/1.73m*2Low>60.0UnCleveland Clinic Fairview HospitalComment on above:Result Comment: The [facility]???s estimated glomerular filtration rate (eGFR) will [...] potential consequences that do not disproportionately affect anyone group of individuals. Performed By: #### [id number] ####[facility] ([facility])[address] [place], [place] [address]Pzfocnv [Mass/Vol]111 mg/eIVwkv62-158HkhvsbhmppCleveland Clinic Fairview HospitalComment on above:Performed By: #### [id number] ####[facility] (AKER)[address] [place], [place] [address]Eqmshfvnh [Moles/Vol]3.6 mmol/LNormal 3.5-5.1UnCleveland Clinic Fairview HospitalComment on above:Performed By: #### [id number] ####[facility] ([facility])[address] [place], [place] [address]Zvbzoe [Moles/Vol]132 mmol/YZbz320-755QffsfbuvviCleveland Clinic Fairview HospitalComment on above:Performed By: #### [id number] ####[facility] ([facility])[address] [place], [place] [address]Sglj nitrogen [Mass/Vol]32 mg/dLHigh7-25UnCleveland Clinic Fairview HospitalComment on above:Performed By: #### [id number] ####[facility] ([facility])[address] [place], [place] [address]VTGM NITROGEN/CREATININE (MASS RATIO) IN SER/PLAS14.7NormalUniversMemorial Health System Selby General HospitalComment on above: Performed By: #### [id number] ####[facility] ([facility])[address] [place], [place] [address]Xxwad gap [Moles/Vol]13 mmol/LNormal7-20UnCleveland Clinic Fairview HospitalComment on above:Performed By: #### [id number] ####[facility] ([facility])[address] [place], [place] [address]Rndsrbh [Mass/Vol]7.2 mg/dLLow8.6-10.3 [facility] HospitalComment on above:Performed By: #### [id number] ####[facility] ([facility])[address] [place], [place] [address]Hhlruizy [Moles/Vol]97 mmol/HIma43-735OgnjesnoxbCleveland Clinic Fairview HospitalComment on above:Performed By: #### [id number] ####[facility] ([facility])[address] [place] [address]ZB7 [Moles/Vol]26 mmol/OJerkxl96-66QnfjipajspCleveland Clinic Fairview HospitalComment on above:Performed By: #### [id number] ####[facility] ([facility])[address] [place] [address]Pjykbwtidz [Mass/Vol]2.37 mg/dLHigh 0.70-1.30UnCleveland Clinic Fairview HospitalComment on above:Performed By: #### [id number] ####[facility] ([facility])[address] [place] [address]NKFBWJVLHG FILTRATION RATE ML/MIN/1.73 SQ M.BIVAAHKTD38.9 mL/min/1.73m*2Low>60.0UnCleveland Clinic Fairview HospitalComment on above:Result Comment: The [facility]???s estimated glomerular filtration rate (eGFR) will [...] potential consequences that do not disproportionately affect anyone group of individuals. Performed By: #### [id number] ####[facility] ([facility])[address] [place] [address]Ucpvjud [Mass/Vol]108 mg/kPIxmg07-604VptzmoptqfCleveland Clinic Fairview HospitalComment on above:Performed By: #### [id number] ####[facility] ([facility])[address] [place] [address]Nyatwqomg [Moles/Vol]3.5 mmol/LNormal 3.5-5.1UnCleveland Clinic Fairview HospitalComment on above:Performed By: #### [id number] ####[facility] ([facility])[address] [place], [place] [address]Eclxki [Moles/Vol]132 mmol/IRkc767-306AmwitnhxpaCleveland Clinic Fairview HospitalComment on above:Performed By: #### [id number] ####[facility] ([facility])[address], [place] [address]Rvcq nitrogen [Mass/Vol]33 mg/dLHigh7-25UnCleveland Clinic Fairview HospitalComment on above:Performed By: #### [id number] ####[facility] ([facility])[address], [place] [address]ADGO NITROGEN/CREATININE (MASS RATIO) IN SER/PLAS13.9NormalUniversMemorial Health System Selby General HospitalComment on above: Performed By: #### [id number] ####[facility] ([facility]ER)[address], [place] [address]TKDCC GAS, VENOUSon [id number] (BldV) [Partial pressure]48 mm[Hg] Wcbyua67-60BwliuuxicbCleveland Clinic Fairview HospitalComment on above:Performed By: #### [id number] ####[facility] [id number] [facility] [place] [address] [place] HCO3 (Bld) [Moles/Vol]31.9 mmol/LNormalUnCleveland Clinic Fairview Hospital Comment on above:Performed By: #### [id number] ####[facility] [id number] [place] [address] USAOxygen (BldV) [Partial pressure]35 mm[Hg]Normal 35-45UnCleveland Clinic Fairview HospitalComment on above:Performed By: #### [id number] ####[facility] [id number] [place] [address] USAOXYGEN SATURATION (%) IN VENOUS BLOOD56.1 %Low65.0-75.0UnCleveland Clinic Fairview HospitalComment on above:Performed By: #### [id number] ####[facility] [id number] [place] [address] USAOXYGENATED HEMOGLOBIN, MFSOMR75.6 % NormalUnCleveland Clinic Fairview HospitalComment on above:Performed By: #### [id number] ####[facility] [id number] [place] [address] USAPCO2 VENOUS TEMP NQSLSJJZ39 iuLvRvhpcc09-52NzfnwsoxmkCleveland Clinic Fairview HospitalComment on above:Performed By: #### [id number] ####[facility] [id number] [place]HAT[place] [address] USAPH OF VENOUS BLOOD7.83Fwpw0.31-7.41UnCleveland Clinic Fairview HospitalComment on above:Performed By: #### [id number] ####[facility] [id number] [place] [address] USAPH VENOUS TEMP ADJUSTED7.43High 7.31-7.41UnCleveland Clinic Fairview HospitalComment on above:Performed By: #### [id number] ####[facility] [id number] [place] [address] USAPO2 VENOUS TEMP MBYQYGMO64 qsZfRywieh42-37ZpwwawxtokCleveland Clinic Fairview HospitalComment on above:Performed By: #### [id number] ####[facility] [id number] [place] [address] OUALGZGBSIAXRA81.0 ???CNormalUnCleveland Clinic Fairview HospitalComment on above:Performed By: #### [id number] ####[facility] [id number] [place] [address] USACBC WITH AUTO DIFFERENTIALon 02-55-4039Hquabocrk (Bld) [#/Vol]0.01 10*3/uLNormal0.00-0.20UnCleveland Clinic Fairview HospitalComment on above:Performed By: #### [id number] ####[facility] (BEAKER)[address] [place], [place] [address]Wywdxdrdt/100 WBC (Bld)0.1 %Normal 0.0-1.0UnCleveland Clinic Fairview HospitalComment on above:Performed By: #### [id number] ####[facility] ([facility]ER)[address] [place] [address] Eosinophils (Bld) [#/Vol]0.00 10*3/uLNormal0.00-0.50UnCleveland Clinic Fairview HospitalComment on above:Performed By: #### [id number] ####[facility] ([facility])[address], [place] [address]Ngurvkzpfhy/100 WBC (Bld)0.0 %Normal 0.0-6.0UnCleveland Clinic Fairview HospitalComment on above:Performed By: #### [id number] ####[facility] ([facility])[address] [place] [address] Erythrocyte distribution width (RBC) [Ratio]14.5 %Yrduik82.5-15.0UnCleveland Clinic Fairview HospitalComment on above:Performed By: #### [id number] ####[facility] ([facility])[address], [place] [address]CYHHDDSMAGP MEAN CORPUSCULAR HEMOGLOBIN CONCENTRATION (G/DL) BY BDCWMGDLL64.5 g/tHZqcl23.0-35.0 [facility] HospitalComment on above:Performed By: #### [id number] ####[facility] ([facility])[address], [place] [address]Gpmnegqgcf (Bld) [Volume fraction]23.4 %Low39.0-50.0UnCleveland Clinic Fairview HospitalComment on above:Performed By: #### [id number] ####[facility] (BE[facility]ER)[address], [place] [address]Hsdqbdriey (Bld) [Mass/Vol]8.3 g/dLLow13.0-17.0UnCleveland Clinic Fairview HospitalComment on above:Performed By: #### [id number] ####[facility] ([facility])[address] [place], [place] [address]Omcxyxgt granulocytes (Bld) [#/Vol]0.07 10*3/uLNormal0.00-0.20UnCleveland Clinic Fairview Hospital Comment on above:Performed By: #### [id number] ####[facility] (BE[facility]ER)[address] [place], [place] [address]Ahsihwgn granulocytes/100 WBC (Bld)0.7 %Normal 0.0-1.0UnCleveland Clinic Fairview HospitalComment on above:Performed By: #### [id number] ####[facility] ([facility])[address] [address]PTSCEUMO PLATELET FRACTION %5.7 %Normal0.8-6.3UnCleveland Clinic Fairview HospitalComment on above:Performed By: #### [id number] ####[facility] ([facility])[address], [place] [address]Coaixtmplci (Bld) [#/Vol]0.32 10*3/uLLow1.20-4.00 [facility] HospitalComment on above:Performed By: #### [id number] ####[facility] ([facility])[address], [place] [address]Laoujefxfmo/100 WBC (Bld)3.3 %Low20.0-45.0UnCleveland Clinic Fairview HospitalComment on above: Performed By: #### [id number] ####[facility] ([facility])[address], [place] [address]AZL (RBC) [Entitic mass]32.0 pmMxxuko04.0-33.0UnCleveland Clinic Fairview HospitalComment on above:Performed By: #### [id number] ####[facility] ([facility])[address] [place], [place] [address]GDH (RBC) [Entitic vol] 90.3 qSAvbegc01.0-98.0UnCleveland Clinic Fairview HospitalComment on above: Performed By: #### [id number] ####[facility] ([facility])[address] [place], [place] [address]Ctvrzwkhp (Bld) [#/Vol]0.55 10*3/uLNormal0.10-1.00UnCleveland Clinic Fairview HospitalComment on above:Performed By: #### [id number] ####[facility] ([facility])[address] [place], [place] [address]Snbmjfooe/100 WBC (Bld) 5.6 %Normal5.0-12.0UnCleveland Clinic Fairview HospitalComment on above:Performed By: #### [id number] ####[facility] ([facility])[address] [place] [address]Xzzvfezvdur (Bld) [#/Vol]8.81 10*3/uLHigh1.60-7.60UnCleveland Clinic Fairview HospitalComment on above:Performed By: #### [id number] ####[facility] ([facility])[address] [place] [address]Phubwvlluez/100 WBC (Bld)90.3 %High 40.0-72.0UnCleveland Clinic Fairview HospitalComment on above:Performed By: #### [id number] ####[facility] ([facility])[address] [place] [address]DWLI (PER 100 WBCS) BY AUTOMATED COUNT0.3 %Qpqb5BbvjjxxtuqCleveland Clinic Fairview Hospital Comment on above:Performed By: #### [id number] ####[facility] ([facility])[address] [place] [address]PMWDQCCIZ (10*3/UL) IN BLOOD AUTOMATED BOVPN662 10*3/uUApr709-461HzdeqnmateCleveland Clinic Fairview HospitalComment on above:Performed By: #### [id number] ####[facility] ([facility])[address] [place] [address]GCS (Bld) [#/Vol]2.59 10*6/uLLow4.20-5.70UnCleveland Clinic Fairview HospitalComment on above:Performed By: #### [id number] ####[facility] ([facility])[address], [place] [address]WGS (Bld) [#/Vol]9.76 10*3/uLNormal 4.00-10.60UnCleveland Clinic Fairview HospitalComment on above:Performed By: #### [id number] ####[facility] ([facility])[address] [place] [address] COMPREHENSIVE METABOLIC PANELon 35-29-8229Nntwrvz [Mass/Vol]3.1 g/dLLow3.5-5.7 [facility] HospitalComment on above:Performed By: #### [id number] ####[facility] ([facility])[address], [place] [address]XGG [Catalytic activity/Vol]56 U/MYojlem52-825FessumtexsCleveland Clinic Fairview HospitalComment on above:Performed By: #### [id number] ####[facility] ([facility])[address], [place] [address]SYE [Catalytic activity/Vol]267 U/LHigh7-52UnCleveland Clinic Fairview HospitalComment on above:Performed By: #### [id number] ####[facility] ([facility])[address] [place], [place] [address]Edrzp gap [Moles/Vol]14 mmol/L Normal7-20UnCleveland Clinic Fairview HospitalComment on above:Performed By: #### [id number] ####[facility] ([facility])[address], [place] [address]HWP [Catalytic activity/Vol]252 U/LZdle69-60YkkvwyhojmCleveland Clinic Fairview Hospital Comment on above:Performed By: #### [id number] ####[facility] ([facility])[address], [place] [address]Dkwcnfnhz [Mass/Vol]0.7 mg/dLNormal0.3-1.0 [facility] HospitalComment on above:Performed By: #### [id number] ####[facility] ([facility])[address] [place], [place] [address]Qdhgdtd [Mass/Vol]7.5 mg/dLLow8.6-10.3UnCleveland Clinic Fairview HospitalComment on above:Performed By: #### [id number] ####[facility] ([facility])[address], [place] [address]Xjgeqynq [Moles/Vol]96 mmol/JEtx28-400ExnlqwkkvnCleveland Clinic Fairview HospitalComment on above:Performed By: #### [id number] ####[facility] ([facility])[address], [place] [address]ZP1 [Moles/Vol]26 mmol/AFisieo62-22 [facility] HospitalComment on above:Performed By: #### [id number] ####[facility] ([facility])[address] [place] [address]Sirvubhaan [Mass/Vol]2.24 mg/dLHigh0.70-1.30UnCleveland Clinic Fairview HospitalComment on above:Performed By: #### [id number] ####[facility] ([facility])[address] [place] [address]ZKJWIPUWCF FILTRATION RATE ML/MIN/1.73 SQ M.XPKJWPZOH44.0 mL/min/1.73m*2Low>60.0UnCleveland Clinic Fairview HospitalComment on above:Result Comment: [facility]???s estimated glomerular filtration rate (eGFR) will [...] potential consequences that do not disproportionately affect anyone group of individuals.Performed By: #### [id number] ####[facility] ([facility])[address] [place] [address]Moqkgza [Mass/Vol]111 mg/sMLgzr93-076DdfwhqobazCleveland Clinic Fairview HospitalComment on above:Performed By: #### [id number] ####[facility] ([facility])[address] [place] [address]Vhkafkgco [Moles/Vol]3.7 mmol/L Normal3.5-5.1UnCleveland Clinic Fairview HospitalComment on above:Performed By: #### [id number] ####[facility] ([facility])[address] [place] [address] Protein [Mass/Vol]5.5 g/dLLow6.0-8.3UnCleveland Clinic Fairview HospitalComment on above:Performed By: #### [id number] ####[facility] ([facility])[address], [place] [address]Bcrdvz [Moles/Vol]132 mmol/HPze208-760YaokkrzohqCleveland Clinic Fairview HospitalComment on above:Performed By: #### [id number] ####[facility] ([facility])[address] [place], [place] [address]Nqhq nitrogen [Mass/Vol]32 mg/dLHigh 7-25UnCleveland Clinic Fairview HospitalComment on above:Performed By: #### [id number] ####[facility] ([facility])[address] [place], [place] [address]OMHZ NITROGEN/CREATININE (MASS RATIO) IN SER/PLAS14.3NormalUniversMemorial Health System Selby General HospitalComment on above:Performed By: #### [id number] ####[facility] ([facility])[address], [place] [address]ANFQOGRJnl 20-95-4008BBDURYAG (NG/ML) IN SER/OZSC0295.0 ng/xVVmqa19.0-336.0UnCleveland Clinic Fairview HospitalComment on above:Performed By: #### [id number] ####[facility] ([facility])[address] [place], [place] [address]QLKS AND TIBCon 55-38-8347PLXE (UG/DL) IN SER/PLAS33 ug/dLLow 50-212UnCleveland Clinic Fairview HospitalComment on above:Performed By: #### [id number] ####[facility] ([facility])[address] [place], [place] [address]QWYO BINDING CAPACITY (UG/DL) IN SER/XVCJ619 ug/hBTzg391-120EtdnmdhloqCleveland Clinic Fairview HospitalComment on above:Performed By: #### [id number] ####[facility] ([facility])[address], [place] [address]TZDV BINDING CAPACITY.UNSATURATED (UG/DL) IN SER/PSEL062.0 ug/kLXzabmw534.0-355.0UnCleveland Clinic Fairview HospitalComment on above:Performed By: #### [id number] ####[facility] (BEAKER)[address] [place], [place] [address]OEMM SATURATION (%) IN SER/PLAS15 %Low 20-50UnCleveland Clinic Fairview HospitalComment on above:Performed By: #### [id number] ####[facility] ([facility]ER)[address] [place], [place] [address]WRJBDEGLK on 35-24-1536Flkbgmfgg [Mass/Vol]1.9 mg/dLNormal1.9-2.7UnCleveland Clinic Fairview HospitalComment on above:Performed By: #### [id number] ####[facility] ([facility]ER)[address] [place], [place] [address]Kgxtpmgan [Mass/Vol]2.0 mg/dLNormal 1.9-2.7UnCleveland Clinic Fairview HospitalComment on above:Performed By: #### [id number] ####[facility] ([facility])[address] [place], [place] [address]Grhjkizil [Mass/Vol]2.1 mg/dLNormal1.9-2.7UnCleveland Clinic Fairview HospitalComment on above:Performed By: #### [id number] ####[facility] ([facility])[address] [place], [place] [address]Mujgckpgg [Mass/Vol]2.2 mg/dLNormal1.9-2.7UnCleveland Clinic Fairview HospitalComment on above:Performed By: #### [id number] ####[facility] ([facility])[address], [place] [address]Ofywrvpxl [Mass/Vol]1.9 mg/dLNormal1.9-2.7UnCleveland Clinic Fairview HospitalComment on above:Performed By: #### [id number] ####[facility] ([facility])[address] [place] [address] Magnesium [Mass/Vol]2.0 mg/dLNormal1.9-2.7UnC[facility] Clinic Fairview Hospital Comment on above:Performed By: #### [id number] ####[facility] ([facility])[address] [place], [place] [address]CHWKLUDWYGjl [id number] [Mass/Vol]2.8 mg/dLNormal2.5-5.0UnCleveland Clinic Fairview HospitalComment on above:Performed By: #### [id number] ####[facility] ([facility])[address] [place] [address] Magnesium [Mass/Vol]3.0 mg/dLNormal2.5-5.0UnC[facility] Clinic Fair[facility] Hospital Comment on above:Performed By: #### [id number] ####[facility] ([facility])[address] [place], [place] [address]Vcefjicet [Mass/Vol]2.5 mg/dLNormal2.5-5.0 [facility] HospitalComment on above:Performed By: #### [id number] ####[facility] [facility] [place], [place] [address]Lnjluvlkv [Mass/Vol]2.4 mg/dLLow2.5-5.0UnCleveland Clinic Fairview HospitalComment on above:Performed By: #### [id number] ####[facility] ([facility])[address], [place] [address]Jnwucggxv [Mass/Vol]2.8 mg/dLNormal2.5-5.0UnCleveland Clinic Fairview HospitalComment on above:Performed By: #### [id number] ####[facility] ([facility])[address], [place] [address]Kvnpozytp [Mass/Vol]2.7 mg/dLNormal2.5-5.0UnCleveland Clinic Fairview HospitalComment on above:Performed By: #### [id number] ####[facility] ([facility])[address] [place] [address] 30on [id number] patient is Moderately Unstable - Medium risk of patient condition declining or worsening The patient's goals for the shift include comfort The clinical goals for the shift include VSSNormalUniversity of Baylor Scott [facility] White Medical Center – Round RockABG UNSOLICITED RESULTSon [id number]-TBS7UgvwnrSshajtzxepMemorial Health System Selby General HospitalComment on above:Result Comment: C^IncalculablePerformed By: #### [id number] ####[facility] [id number] [place] [address] USABase excess Calc (Bld) [Moles/Vol]-7.3000 mmol/LLow-2.0-3.0UnCleveland Clinic Fairview HospitalComment on above:Performed By: #### [id number] ####[facility] [id number] [place] [address] USACO2 (Bld) [Partial pressure]30 mm[Hg]Ewh80-39OtvijyutrtCleveland Clinic Fairview HospitalComment on above:Performed By: #### [id number] ####[facility] [id number] [place] [address] [place] HCO3 (Bld) [Moles/Vol]16.9 mmol/LLow21.0-28.0UnCleveland Clinic Fairview Hospital Comment on above:Performed By: #### [id number] ####[facility] [id number] [place] [address] USAOxygen (Bld) [Partial pressure]86 mm[Hg]Normal 83-108UnCleveland Clinic Fairview HospitalComment on above:Performed By: #### [id number] ####[facility] [id number] [place] [address] USAOXYGEN DEVICE #1CannulaNoOhioHealth Marion General HospitalComment on above: Performed By: #### [id number] ####[facility] [id number] [place] [address] USAOXYGEN LITERS PER MINUTE (LPM) IN BLOOD4.0 LPMNormalUnCleveland Clinic Fairview HospitalComment on above:Performed By: #### [id number] ####[facility] [id number] [place] [address] USAOXYGEN SATURATION (%) IN ARTERIAL BLOOD98.1 %Wjuhkk98.0-100.0UnCleveland Clinic Fairview Hospital Comment on above:Performed By: #### [id number] ####[facility] [id number] [place] [address] USAOXYGENATED HEMOGLOBIN IN ARTERIAL BLOOD96.2 % Bqdnrw09.0-97.0UnCleveland Clinic Fairview HospitalComment on above:Performed By: #### [id number] ####[facility] [id number] [place] [address] [place] PAO2/VSJ6HdbzowBlckcznfmgMemorial Health System Selby General HospitalComment on above:Result Comment: C^IncalculablePerformed By: #### [id number] ####[facility] [id number] [place] [address] USAPF RATIONormalUnCleveland Clinic Fairview HospitalComment on above:Result Comment: C^IncalculablePerformed By: #### [id number] ####[facility] [id number] [place] [address] USAPH OF ARTERIAL BLOOD7.43Xzfljd0.35-7.45UnCleveland Clinic Fairview HospitalComment on above:Performed By: #### [id number] ####[facility] [id number] [place] [address] FINBHKTMKRXUXM65.0 ???CNormalUnCleveland Clinic Fairview HospitalComment on above:Performed By: #### [id number] ####[facility] [id number] [place] [address] USABASIC METABOLIC PANELon 04-28-2025 Anion gap [Moles/Vol]15 mmol/LNormal7-20UnCleveland Clinic Fairview Hospital Comment on above:Performed By: #### [id number] ####[facility] HOSPITAL LAB (BEAKER)[address] [facility], [place] [address]Hbplwyt [Mass/Vol]6.9 mg/dLLow8.6-10.3UnCleveland Clinic Fairview HospitalComment on above:Performed By: #### [id number] ####[facility] HOSPITAL LAB (BEAKER)[address] [facility], [place] [address]Ltvndiok [Moles/Vol]99 mmol/ILhancg51-843XdjppkgtfpCleveland Clinic Fairview HospitalComment on above:Performed By: #### [id number] ####[facility] HOSPITAL LAB (BEAKER)[address] [facility] [place] [address] CO2 [Moles/Vol]21 mmol/HTxotka49-59MsvhdnjijkCleveland Clinic Fairview HospitalComment on above:Performed By: #### [id number] ####[facility] ([facility])[address] [place] [place] [address]Mrfajgcjxj [Mass/Vol]2.65 mg/dLHigh0.70-1.30UnCleveland Clinic Fairview HospitalComment on above:Performed By: #### [id number] ####[facility] ([facility])[address] [facility] [place] [place] [address]RODXIKYCFW FILTRATION RATE ML/MIN/1.73 SQ M.KDLFXDVNL78.3 mL/min/1.73m*2Low>60.0UnCleveland Clinic Fairview HospitalComment on above:Result Comment: [facility]???s estimated glomerular filtration rate (eGFR) will [...] potential consequences that do not disproportionately affect anyone group of individuals.Performed By: #### [id number] ####[facility] ([facility])[address] [place], [place] [address]Nxgqtfl [Mass/Vol]109 mg/wBChto31-281OiqmbvpqirCleveland Clinic Fairview HospitalComment on above:Performed By: #### [id number] ####[facility] ([facility] [facility] [place] [place] [address]Tfyxhqlgk [Moles/Vol]3.7 mmol/LNormal3.5-5.1UnCleveland Clinic Fairview HospitalComment on above:Performed By: #### [id number] ####[facility] ([facility] [facility], [place] [address]Qqkhrf [Moles/Vol]131 mmol/LLow 136-145UnCleveland Clinic Fairview HospitalComment on above:Performed By: #### [id number] ####[facility] ([facility])[address], [place] [address]Esic nitrogen [Mass/Vol]38 mg/dLHigh7-25UnCleveland Clinic Fairview HospitalComment on above:Performed By: #### [id number] ####[facility] ([facility])[address], [place] [address]JHVG NITROGEN/CREATININE (MASS RATIO) IN SER/PLAS14.3Normal [facility] HospitalComment on above:Performed By: #### [id number] ####[facility] ([facility])[address], [place] [address]Hgign gap [Moles/Vol]14 mmol/LNormal7-20UnCleveland Clinic Fairview HospitalComment on above:Performed By: #### [id number] ####[facility] ([facility])[address], [place] [address]Qfoedlo [Mass/Vol]6.3 mg/dLLow8.6-10.3UnCleveland Clinic Fairview HospitalComment on above:Performed By: #### [id number] ####[facility] ([facility])[address], [place] [address]Dgvgjeev [Moles/Vol]100 mmol/LNormal 98-107UnCleveland Clinic Fairview HospitalComment on above:Performed By: #### [id number] ####[facility] ([facility])[address], [place] [address]QY6 [Moles/Vol]21 mmol/UHgcwsu27-15CmkisfyawdCleveland Clinic Fairview HospitalComment on above:Performed By: #### [id number] ####[facility] ([facility])[address], [place] [address]Xtofuagsir [Mass/Vol]3.34 mg/dLHigh0.70-1.30UnCleveland Clinic Fairview HospitalComment on above:Performed By: #### [id number] ####[facility] ([facility])[address], [place] [address]MFRECLTIKZ FILTRATION RATE ML/MIN/1.73 SQ M.NNFJDTOBI97.2 mL/min/1.73m*2Low>60.0UnCleveland Clinic Fairview HospitalComment on above:Result Comment: [facility]???s estimated glomerular filtration rate (eGFR) will [...] potential consequences that do not disproportionately affect anyone group of individuals.Performed By: #### [id number] ####[facility] ([facility])[address], [place] [address]Numgwbi [Mass/Vol]123 mg/zXMuad79-160QldfbyjafjCleveland Clinic Fairview HospitalComment on above:Performed By: #### [id number] ####[facility] ([facility])[address], [place] [address]Cjdtsgtuh [Moles/Vol]3.6 mmol/LNormal3.5-5.1UnCleveland Clinic Fairview HospitalComment on above:Performed By: #### [id number] ####[facility] ([facility])[address], [place] [address]Bzixbm [Moles/Vol]131 mmol/LLow 136-145UnCleveland Clinic Fairview HospitalComment on above:Performed By: #### [id number] ####[facility] ([facility])[address], [place] [address]Mwir nitrogen [Mass/Vol]45 mg/dLHigh7-25UnCleveland Clinic Fairview HospitalComment on above:Performed By: #### [id number] ####[facility] ([facility])[address] [place], [place] [address]RPOQ NITROGEN/CREATININE (MASS RATIO) IN SER/PLAS13.5Normal [facility] HospitalComment on above:Performed By: #### [id number] ####[facility] ([facility])[address] [place], [place] [address]Mqufm gap [Moles/Vol]14 mmol/LNormal7-20UnCleveland Clinic Fairview HospitalComment on above:Performed By: #### [id number] ####[facility] ([facility])[address] [place] [address]Egjqtjx [Mass/Vol]6.7 mg/dLLow8.6-10.3UnCleveland Clinic Fairview HospitalComment on above:Performed By: #### [id number] ####[facility] ([facility])[address] [place] [address]Bavymeaz [Moles/Vol]99 mmol/LNormal 98-107UnCleveland Clinic Fairview HospitalComment on above:Performed By: #### [id number] ####[facility] ([facility])[address] [place] [address]BD3 [Moles/Vol]21 mmol/PYqxzmx16-98QydxoanwwiCleveland Clinic Fairview HospitalComment on above:Performed By: #### [id number] ####[facility] ([facility])[address], [place] [address]Fzxsrwqztg [Mass/Vol]3.36 mg/dLHigh0.70-1.30UnCleveland Clinic Fairview HospitalComment on above:Performed By: #### [id number] ####[facility] ([facility])[address] [place] [address]IQIZZHSGDM FILTRATION RATE ML/MIN/1.73 SQ M.BMQHMUWME85.0 mL/min/1.73m*2Low>60.0UnCleveland Clinic Fairview HospitalComment on above:Result Comment: The [facility]???s estimated glomerular filtration rate (eGFR) will [...] potential consequences that do not disproportionately affect anyone group of individuals.Performed By: #### [id number] ####[facility] ([facility])[address], [place] [address]Oytvaux [Mass/Vol]121 mg/sSKaon92-750LzhmlebyzbCleveland Clinic Fairview HospitalComment on above:Performed By: #### [id number] ####[facility] ([facility])[address], [place] [address]Pbwtmxtvk [Moles/Vol]4.3 mmol/LNormal3.5-5.1UnCleveland Clinic Fairview HospitalComment on above:Performed By: #### [id number] ####[facility] ([facility])[address], [place] [address]Hrjfxn [Moles/Vol]130 mmol/LLow 136-145UnCleveland Clinic Fairview HospitalComment on above:Performed By: #### [id number] ####[facility] ([facility])[address], [place] [address]Huto nitrogen [Mass/Vol]42 mg/dLHigh7-25UnCleveland Clinic Fairview HospitalComment on above:Performed By: #### [id number] ####[facility] ([facility])[address], [place] [address]DJNM NITROGEN/CREATININE (MASS RATIO) IN SER/PLAS12.5Normal [facility] HospitalComment on above:Performed By: #### [id number] ####[facility] ([facility])[address], [place] [address]Fdcuu gap [Moles/Vol]17 mmol/LNormal7-20UnCleveland Clinic Fairview HospitalComment on above:Performed By: #### [id number] ####[facility] ([facility])[address], [place] [address]Fnrsfgd [Mass/Vol]7.0 mg/dLLow8.6-10.3UnCleveland Clinic Fairview HospitalComment on above:Performed By: #### [id number] ####[facility] ([facility])[address], [place] [address]Ejgimpau [Moles/Vol]100 mmol/LNormal 98-107UnCleveland Clinic Fairview HospitalComment on above:Performed By: #### [id number] ####[facility] ([facility])[address], [place] [address]PA8 [Moles/Vol]16 mmol/TCdc34-58RxqzbuhnfkCleveland Clinic Fairview HospitalComment on above: Performed By: #### [id number] ####[facility] ([facility])[address], [place] [address]Izdapjdeyf [Mass/Vol]3.23 mg/dLHigh0.70-1.30UnCleveland Clinic Fairview HospitalComment on above:Performed By: #### [id number] ####[facility] ([facility])[address], [place] [address]SEMTUYSPDH FILTRATION RATE ML/MIN/1.73 SQ M.QYGILUWJM54.0 mL/min/1.73m*2Low>60.0UnCleveland Clinic Fairview Hospital Comment on above:Result Comment: The [facility]???s estimated glomerular filtration rate (eGFR) will no longer include consideration of race in its calculation. The National Kid[employer] Foundation???s eGFR Task Force developed new recommendations for the estimation of the glomerular filtration ra te in the [place] They recommend immediate implementation of the new equation refit without the race variable in all laboratories because the calculation does not include race. In addition to not including race in the calculation and reporting, it included diversity in its development, and has acceptable performance characteristics and potential consequences that do not disproportionately affect anyone group of individuals.Performed By: #### [id number] ####[facility] ([facility])[address], [place] [address]Ioxnxkd [Mass/Vol]151 mg/dVJtks85-386FpmpahsyisCleveland Clinic Fairview HospitalComment on above:Performed By: #### [id number] ####[facility] ([facility])[address] [place], [place] [address]Ixpkkxzxc [Moles/Vol]4.3 mmol/LNormal3.5-5.1UnCleveland Clinic Fairview HospitalComment on above:Performed By: #### [id number] ####[facility] ([facility])[address] [place], [place] [address]Ponhks [Moles/Vol]129 mmol/LLow 136-145UnCleveland Clinic Fairview HospitalComment on above:Performed By: #### [id number] ####[facility] ([facility])[address], [place] [address]Yexz nitrogen [Mass/Vol]41 mg/dLHigh7-25UnCleveland Clinic Fairview HospitalComment on above:Performed By: #### [id number] ####[facility] ([facility])[address], [place] [address]FJHA NITROGEN/CREATININE (MASS RATIO) IN SER/PLAS12.7Normal [facility] HospitalComment on above:Performed By: #### [id number] ####[facility] ([facility])[address], [place] [address]Otcyk gap [Moles/Vol]19 mmol/LNormal7-20UnCleveland Clinic Fairview HospitalComment on above:Performed By: #### LAB15 ####[facility] ([facility])[address], [place] [address]Ykxiafd [Mass/Vol]6.1 mg/dLLow8.6-10.3UnCleveland Clinic Fairview HospitalComment on above:Performed By: #### LAB15 ####[facility] ([facility])[address], [place] [address]Oeghjulb [Moles/Vol]101 mmol/LNormal 98-107UnCleveland Clinic Fairview HospitalComment on above:Performed By: #### LAB15 ####[facility] ([facility])[address], [place] [address]KK8 [Moles/Vol]13 mmol/LInvalid Interpretation Vjtk91-14BaoigwpnuvCleveland Clinic Fairview HospitalComment on above:Performed By: #### LAB15 ####[facility] ([facility])[address], [place] [address]Lyueyjuzqg [Mass/Vol]3.55 mg/dLHigh 0.70-1.30UnCleveland Clinic Fairview HospitalComment on above:Performed By: #### LAB15 ####[facility] ([facility])[address] [place], [place] [address]UJWYCBGPZE FILTRATION RATE ML/MIN/1.73 SQ M.PVRBKSWTG56.8 mL/min/1.73m*2Low>60.0UnCleveland Clinic Fairview HospitalComment on above:Result Comment: The [facility]???s estimated glomerular filtration rate (eGFR) will [...] potential consequences that do not disproportionately affect anyone group of individuals. Performed By: #### LAB15 ####[facility] ([facility])[address] [place], [place] [address]Qussnya [Mass/Vol]161 mg/bFNulu16-800WdhrachyldCleveland Clinic Fairview HospitalComment on above:Performed By: #### LAB15 ####[facility] ([facility])[address] [place], [place] [address]Iygzkrnog [Moles/Vol]4.1 mmol/LNormal 3.5-5.1UnCleveland Clinic Fairview HospitalComment on above:Performed By: #### LAB15 ####[facility] ([facility])[address] [place], [place] [address]Fatbmw [Moles/Vol]129 mmol/WZvi431-781UfzedqwonuCleveland Clinic Fairview HospitalComment on above:Performed By: #### LAB15 ####[facility] ([facility])[address], [place] [address]Nyzo nitrogen [Mass/Vol]44 mg/dLHigh7-25UnCleveland Clinic Fairview HospitalComment on above:Performed By: #### LAB15 ####[facility] ([facility])[address], [place] [address]VWPY NITROGEN/CREATININE (MASS RATIO) IN SER/PLAS12.4NormalUniversMemorial Health System Selby General HospitalComment on above: Performed By: #### [id number] ####[facility] ([facility])[address] [address]CMUjt 74-71-36[address]Cjvrrwqumgg distribution width (RBC) [Ratio]14.3 % Ddsxcg05.5-15.0UnCleveland Clinic Fairview HospitalComment on above:Performed By: #### [id number] ####[facility] ([facility])[address] [place] [address] ERYTHROCYTE MEAN CORPUSCULAR HEMOGLOBIN CONCENTRATION (G/DL) BY LYQCRGXRP21.6 g/oJIpyhjo82.0-35.0UnCleveland Clinic Fairview HospitalComment on above:Performed By: #### [id number] ####[facility] ([facility])[address] [address]Jxyekwuyks (Bld) [Volume fraction]27.2 %Low39.0-50.0UnCleveland Clinic Fairview HospitalComment on above:Performed By: #### [id number] ####[facility] ([facility])[address] [place] [address]Aflfloyfsk (Bld) [Mass/Vol]9.4 g/dLLow 13.0-17.0UnCleveland Clinic Fairview HospitalComment on above:Performed By: #### [id number] ####[facility] ([facility])[address] [address]WPP (RBC) [Entitic mass]32.4 lfGqvdmu86.0-33.0UnCleveland Clinic Fairview HospitalComment on above:Performed By: #### [id number] ####[facility] ([facility])[address] [place] [address]AJZ (RBC) [Entitic vol]93.8 pONtnftn44.0-98.0UnCleveland Clinic Fairview HospitalComment on above:Performed By: #### [id number] ####[facility] ([facility])[address] [place] [address]JRHOEAWYG (10*3/UL) IN BLOOD AUTOMATED VXDQM151 10*3/gTPhoxnm364-147ZuidbykhcqCleveland Clinic Fairview Hospital Comment on above:Performed By: #### [id number] ####[facility] ([facility])[address] [place] [address]LEG (Bld) [#/Vol]2.90 10*6/uLLow4.20-5.70UnCleveland Clinic Fairview HospitalComment on above:Performed By: #### [id number] ####[facility] ([facility])[address] [place] [address]KDI (Bld) [#/Vol]19.72 10*3/uLHigh4.00-10.60UnCleveland Clinic Fairview HospitalComment on above: Performed By: #### [id number] ####[facility] ([facility])[address], [place] [address]VUOFXFXOUNGFS METABOLIC PANELon 43-26-2627Abjdhgn [Mass/Vol] 3.1 g/dLLow3.5-5.7UnCleveland Clinic Fairview HospitalComment on above:Performed By: #### [id number] ####[facility] ([facility])[address] [place] [address] ALP [Catalytic activity/Vol]62 U/BZtdawx15-614VmajuousmdCleveland Clinic Fairview HospitalComment on above:Performed By: #### [id number] ####[facility] ([facility])[address], [place] [address]UMU [Catalytic activity/Vol]314 U/L High7-52UnCleveland Clinic Fairview HospitalComment on above:Performed By: #### [id number] ####[facility] ([facility])[address], [place] [address]Kdjuf gap [Moles/Vol]15 mmol/LNormal7-20UnCleveland Clinic Fairview HospitalComment on above:Performed By: #### [id number] ####[facility] ([facility])[address], [place] [address]IAE [Catalytic activity/Vol]514 U/SMtvf28-79BfjjnfjyprCleveland Clinic Fairview HospitalComment on above:Performed By: #### [id number] ####[facility] ([facility])[address], [place] [address]Fqoroeuxx [Mass/Vol]0.6 mg/dL Normal0.3-1.0UnCleveland Clinic Fairview HospitalComment on above:Performed By: #### [id number] ####[facility] ([facility])[address] [place] [address] Calcium [Mass/Vol]6.9 mg/dLLow8.6-10.3UnCleveland Clinic Fairview HospitalComment on above:Performed By: #### [id number] ####[facility] ([facility])[address], [place] [address]Ngdoowob [Moles/Vol]98 mmol/TAguxcf94-789JnmswdtkrqCleveland Clinic Fairview HospitalComment on above:Performed By: #### [id number] ####[facility] ([facility])[address], [place] [address]WA7 [Moles/Vol]22 mmol/KHininl31-87 [facility] HospitalComment on above:Performed By: #### [id number] ####[facility] ([facility])[address], [place] [address]Wfmorkftur [Mass/Vol]3.18 mg/dLHigh0.70-1.30UnCleveland Clinic Fairview HospitalComment on above:Performed By: #### [id number] ####[facility] ([facility])[address], [place] [address]HCVRVGXNTQ FILTRATION RATE ML/MIN/1.73 SQ M.ZTNZDBZSD49.3 mL/min/1.73m*2Low>60.0UnCleveland Clinic Fairview HospitalComment on above:Result Comment: The [facility]???s estimated glomerular filtration rate (eGFR) will [...] potential consequences that do not disproportionately affect anyone group of individuals.Performed By: #### [id number] ####[facility] ([facility])[address], [place] [address]Uuqlatd [Mass/Vol]132 mg/vNCowm31-333RiwpgdzlotCleveland Clinic Fairview HospitalComment on above:Performed By: #### [id number] ####[facility] ([facility])[address], [place] [address]Qlbrzeyun [Moles/Vol]3.6 mmol/L Normal3.5-5.1UnCleveland Clinic Fairview HospitalComment on above:Performed By: #### [id number] ####[facility] ([facility])[address] [place] [address] Protein [Mass/Vol]5.5 g/dLLow6.0-8.3UnCleveland Clinic Fairview HospitalComment on above:Performed By: #### [id number] ####[facility] ([facility])[address] [place], [place] [address]Spcwzo [Moles/Vol]131 mmol/YMcm152-001ZsgwcaqbioCleveland Clinic Fairview HospitalComment on above:Performed By: #### [id number] ####[facility] ([facility])[address] [place], [place] [address]Psdz nitrogen [Mass/Vol]43 mg/dLHigh 7-25UnCleveland Clinic Fairview HospitalComment on above:Performed By: #### [id number] ####[facility] ([facility])[address] [place], [place] [address]ARVC NITROGEN/CREATININE (MASS RATIO) IN SER/PLAS13.5NormalUniversMemorial Health System Selby General HospitalComment on above:Performed By: #### [id number] ####[facility] ([facility])[address], [place] [address]IAWGFCJPLnb [phone] [Mass/Vol]1.8 mg/dLLow1.9-2.7UnCleveland Clinic Fairview HospitalComment on above:Performed By: #### [id number] ####[facility] ([facility])[address], [place] [address]Kpdbizuzf [Mass/Vol]2.0 mg/dLNormal1.9-2.7UnCleveland Clinic Fairview HospitalComment on above:Performed By: #### [id number] ####[facility] ([facility])[address] [place], [place] [address]Oormcbrkp [Mass/Vol]2.0 mg/dLNormal1.9-2.7UnCleveland Clinic Fairview HospitalComment on above:Performed By: #### [id number] ####[facility] ([facility])[address] [place] [address] Magnesium [Mass/Vol]2.1 mg/dLNormal1.9-2.7UnCleveland Clinic Fairview Hospital Comment on above:Performed By: #### [id number] ####[facility] ([facility])[address] [place], [place] [address]Zwvctivsb [Mass/Vol]1.9 mg/dLNormal1.9-2.7 [facility] HospitalComment on above:Performed By: #### [id number] ####[facility] ([facility])[address] [place], [place] [address]Tjknzxvso [Mass/Vol]1.9 mg/dLNormal1.9-2.7UnCleveland Clinic Fairview HospitalComment on above:Performed By: #### [id number] ####[facility] ([facility])[address] [place], [place] [address]EZJNOICYLEoq 71-63-4586Iplugrvsn [Mass/Vol]3.3 mg/dLNormal 2.5-5.0UnCleveland Clinic Fairview HospitalComment on above:Performed By: #### [id number] ####[facility] (BE[facility])[address] [place], [place] [address]Dcxciadpj [Mass/Vol]4.1 mg/dLNormal2.5-5.0UnCleveland Clinic Fairview HospitalComment on above:Performed By: #### [id number] ####[facility] ([facility])[address] [place], [place] [address]Vzafrebku [Mass/Vol]4.7 mg/dLNormal2.5-5.0UnCleveland Clinic Fairview HospitalComment on above:Performed By: #### [id number] ####[facility] ([facility])[address], [place] [address]Fzfckdlws [Mass/Vol]4.9 mg/dLNormal2.5-5.0UnCleveland Clinic Fairview HospitalComment on above:Performed By: #### [id number] ####[facility] ([facility])[address] [place] [address] Magnesium [Mass/Vol]4.4 mg/dLNormal2.5-5.0UnCleveland Clinic Fairview Hospital Comment on above:Performed By: #### [id number] ####[facility] ([facility])[address], [place] [address]Mmfuruuub [Mass/Vol]3.7 mg/dLNormal2.5-5.0 [facility] HospitalComment on above:Performed By: #### [id number] ####[facility] ([facility])[address], [place] [address]SPKG GLUCOSE METER UNSOLICITED RESULTSon 07-97-5172Qfyxvqm [Mass/Vol]88 mg/tZKezzjp79-140 [facility] HospitalComment on above:Order Comment: Waived Testing in the ED is performed under the ED CLIA certificate #[id number].Result Comment: [id number] By: #### [id number] ####[facility] ([facility])[address], [place] [address]13ma [id number] patient is Moderately Unstable - Medium risk of patient condition declining or worsening The patient's goals for the shift include comfort The clinical goals for the shift include VSSNormalUniversity of Baylor Scott [facility] White [facility] Center – Round RockBASIC METABOLIC PANELon 99-73-9160Xyuzt gap [Moles/Vol]20 mmol/LNormal7-20 [facility] HospitalComment on above:Performed By: #### [id number] ####[facility] ([facility])[address] [place], [place] [address]Tqbekxx [Mass/Vol]6.5 mg/dLLow8.6-10.3UnCleveland Clinic Fairview HospitalComment on above:Performed By: #### [id number] ####[facility] ([facility])[address] [address]Lowccqdp [Moles/Vol]98 mmol/LGgkevq82-015KisyzvesfhCleveland Clinic Fairview HospitalComment on above:Performed By: #### [id number] ####[facility] ([facility])[address] [place] [address]JB1 [Moles/Vol]15 mmol/LHaz16-70 [facility] HospitalComment on above:Performed By: #### [id number] ####[facility] ([facility])[address] [place] [address]Rbnzciyzjw [Mass/Vol]3.53 mg/dLHigh0.70-1.30UnCleveland Clinic Fairview HospitalComment on above:Performed By: #### [id number] ####[facility] ([facility])[address] [place] [address]GPFTHSDPMD FILTRATION RATE ML/MIN/1.73 SQ M.FDIFERMMK60.9 mL/min/1.73m*2Low>60.0UnCleveland Clinic Fairview HospitalComment on above:Result Comment: The [facility]???s estimated glomerular filtration rate (eGFR) will [...] potential consequences that do not disproportionately affect anyone group of individuals.Performed By: #### [id number] ####[facility] ([facility])[address] [place] [address]Hkefzgp [Mass/Vol]140 mg/tIArpc61-593XwyuqonizpCleveland Clinic Fairview HospitalComment on above:Performed By: #### [id number] ####[facility] ([facility])[address] [place], [place] [address]Aspcwdyam [Moles/Vol]4.6 mmol/L Normal3.5-5.1UnCleveland Clinic Fairview HospitalComment on above:Performed By: #### [id number] ####[facility] ([facility])[address] [place] [address] Sodium [Moles/Vol]128 mmol/DCbx380-676VpdfwwyjdkCleveland Clinic Fairview HospitalComment on above:Performed By: #### [id number] ####[facility] ([facility])[address], [place] [address]Lffz nitrogen [Mass/Vol]47 mg/dLHigh7-25UnCleveland Clinic Fairview HospitalComment on above:Performed By: #### [id number] ####[facility] ([facility])[address], [place] [address]DQSB NITROGEN/CREATININE (MASS RATIO) IN SER/PLAS13.3NormalUniversMemorial Health System Selby General HospitalComment on above: Performed By: #### [id number] ####[facility] ([facility])[address] [place], [place] [address]Xgdlr gap [Moles/Vol]18 mmol/LNormal7-20UnCleveland Clinic Fairview HospitalComment on above:Performed By: #### [id number] ####[facility] ([facility])[address], [place] [address]Elcjaqf [Mass/Vol]6.7 mg/dLLow8.6-10.3 [facility] HospitalComment on above:Performed By: #### [id number] ####[facility] ([facility])[address] [place], [place] [address]Nvdowpby [Moles/Vol]100 mmol/YHiqvnx05-928PweogutsqrCleveland Clinic Fairview HospitalComment on above:Performed By: #### [id number] ####[facility] ([facility])[address], [place] [address]BG7 [Moles/Vol]16 mmol/VLuf96-76GukanbdwkzCleveland Clinic Fairview HospitalComment on above:Performed By: #### [id number] ####[facility] ([facility])[address] [address]Cslsfvxvlj [Mass/Vol]3.57 mg/dLHigh 0.70-1.30UnCleveland Clinic Fairview HospitalComment on above:Performed By: #### [id number] ####[facility] ([facility])[address] [address]WNQUZIKSQH FILTRATION RATE ML/MIN/1.73 SQ M.HQVFZNBLT25.7 mL/min/1.73m*2Low>60.0UnCleveland Clinic Fairview HospitalComment on above:Result Comment: The [facility]???s estimated glomerular filtration rate (eGFR) will [...] potential consequences that do not disproportionately affect anyone group of individuals. Performed By: #### [id number] ####[facility] ([facility])[address] [address]Jenzalg [Mass/Vol]134 mg/qLTkql05-851QghboibhysCleveland Clinic Fairview HospitalComment on above:Performed By: #### [id number] ####[facility] ([facility])[address] [place] [address]Aofsfvnlz [Moles/Vol]4.5 mmol/LNormal 3.5-5.1UnCleveland Clinic Fairview HospitalComment on above:Performed By: #### [id number] ####[facility] ([facility])[address] [place] [address]Yotslj [Moles/Vol]129 mmol/BNad498-469QixfabcwhaCleveland Clinic Fairview HospitalComment on above:Performed By: #### [id number] ####[facility] ([facility])[address] [address]Kjys nitrogen [Mass/Vol]46 mg/dLHigh7-25UnCleveland Clinic Fairview HospitalComment on above:Performed By: #### [id number] ####[facility] ([facility])[address] [place] [address]XMQU NITROGEN/CREATININE (MASS RATIO) IN SER/PLAS12.9NormalUniversMemorial Health System Selby General HospitalComment on above: Performed By: #### [id number] ####[facility] ([facility])[address] [place] [address]Fbhxc gap [Moles/Vol]18 mmol/LNormal7-20UnCleveland Clinic Fairview HospitalComment on above:Performed By: #### [id number] ####[facility] ([facility])[address] [place] [address]Ebimyqp [Mass/Vol]7.1 mg/dLLow8.6-10.3 [facility] HospitalComment on above:Performed By: #### [id number] ####[facility] ([facility])[address], [place] [address]Gtukzpof [Moles/Vol]98 mmol/ZLbmuxo59-254FpqwlzikxjCleveland Clinic Fairview HospitalComment on above:Performed By: #### [id number] ####[facility] ([facility])[address], [place] [address]CJ9 [Moles/Vol]16 mmol/GQim92-36ViwqfphwnrCleveland Clinic Fairview HospitalComment on above:Performed By: #### [id number] ####[facility] ([facility])[address], [place] [address]Xxlnjlfncc [Mass/Vol]3.03 mg/dLHigh 0.70-1.30UnCleveland Clinic Fairview HospitalComment on above:Performed By: #### [id number] ####[facility] ([facility])[address], [place] [address]VIVDBBYKIY FILTRATION RATE ML/MIN/1.73 SQ M.IJLZKLBJS36.5 mL/min/1.73m*2Low>60.0UnCleveland Clinic Fairview HospitalComment on above:Result Comment: The [facility]???s estimated glomerular filtration rate (eGFR) will [...] potential consequences that do not disproportionately affect anyone group of individuals. Performed By: #### [id number] ####[facility] ([facility])[address] [place], [place] [address]Oxyliag [Mass/Vol]175 mg/wIQmkc66-407AlohrjvdbsCleveland Clinic Fairview HospitalComment on above:Performed By: #### [id number] ####[facility] ([facility])[address], [place] [address]Mvwrmsxfa [Moles/Vol]4.5 mmol/LNormal 3.5-5.1UnCleveland Clinic Fairview HospitalComment on above:Performed By: #### [id number] ####[facility] ([facility])[address], [place] [address]Bczjxw [Moles/Vol]127 mmol/VGik503-971JgbgqmictqCleveland Clinic Fairview HospitalComment on above:Performed By: #### [id number] ####[facility] ([facility])[address], [place] [address]Ydlh nitrogen [Mass/Vol]41 mg/dLHigh7-25UnCleveland Clinic Fairview HospitalComment on above:Performed By: #### [id number] ####[facility] ([facility])[address], [place] [address]KONQ NITROGEN/CREATININE (MASS RATIO) IN SER/PLAS13.5NormalUniversMemorial Health System Selby General HospitalComment on above: Performed By: #### [id number] ####[facility] ([facility])[address], [place] [address]NTBod 70-64-87[address]Jccieqveuhd distribution width (RBC) [Ratio]14.0 % Qvqgql29.5-15.0University of Dubose Medical CenterComment on above:Performed By: #### [id number] ####[facility] ([facility])[address] [place] [address] ERYTHROCYTE MEAN CORPUSCULAR HEMOGLOBIN CONCENTRATION (G/DL) BY RFYXDLYIG55.0 g/eBDysfdg64.0-35.0UnCleveland Clinic Fairview HospitalComment on above:Performed By: #### [id number] ####[facility] ([facility])[address] [place] [address]Dfvigfsmwu (Bld) [Volume fraction]32.0 %Low39.0-50.0UnCleveland Clinic Fairview HospitalComment on above:Performed By: #### [id number] ####[facility] ([facility])[address] [address]Geqxavpkxj (Bld) [Mass/Vol]11.2 g/dL Low13.0-17.0UnCleveland Clinic Fairview HospitalComment on above:Performed By: #### [id number] ####[facility] ([facility])[address] [address]REX (RBC) [Entitic mass]32.0 tlRxjiac71.0-33.0UnCleveland Clinic Fairview Hospital Comment on above:Performed By: #### [id number] ####[facility] ([facility])[address] [place] [address]ERE (RBC) [Entitic vol]91.4 eFZnkqiv00.0-98.0 [facility] HospitalComment on above:Performed By: #### [id number] ####[facility] ([facility])[address] [place] [address]ZXFTZBYJH (10*3/UL) IN BLOOD AUTOMATED [id number] 10*3/bYPeslnm108-765LgmqrkwqbnCleveland Clinic Fairview HospitalComment on above:Performed By: #### [id number] ####[facility] ([facility])[address] [place] [address]CLX (Bld) [#/Vol]3.50 10*6/uLLow 4.20-5.70UnCleveland Clinic Fairview HospitalComment on above:Performed By: #### [id number] ####[facility] ([facility])[address] [address]QGT (Bld) [#/Vol]8.21 10*3/uLNormal4.00-10.60UnCleveland Clinic Fairview HospitalComment on above:Performed By: #### [id number] ####[facility] ([facility])[address] [place] [address]GB-MDMMBMDItj 48-20-4235Amplsgfqfd (Bld) [Mass/Vol]11.5 g/dL NormalUnCleveland Clinic Fairview HospitalComment on above:Performed By: #### [id number] ####[facility] [id number] [place] [address] USAOxygen saturation in Blood36.4 %NormalUnCleveland Clinic Fairview HospitalComment on above:Performed By: #### [id number] ####[facility] [id number] [place] [address] USAOXYGENATED HEMOGLOBIN IN BLOOD36.0 %NormalUnCleveland Clinic Fairview HospitalComment on above:Performed By: #### [id number] ####[facility] [id number] [place] [address] USAHEMOGLOBIN AND HEMATOCRIT, BLOODon 16-09-6168Gulvbjzbmt (Bld) [Volume fraction]30.2 %Low 39.0-50.0UnCleveland Clinic Fairview HospitalComment on above:Performed By: #### [id number] ####[facility] ([facility])[address] [place] [address] Hemoglobin (Bld) [Mass/Vol]10.6 g/dLLow13.0-17.0UnCleveland Clinic Fairview HospitalComment on above:Performed By: #### [id number] ####[facility] ([facility])[address] [place] [address]LWJHBOTFYzs 20-75-7270Kwxrpapls [Mass/Vol]1.8 mg/dLLow1.9-2.7UnCleveland Clinic Fairview HospitalComment on above:Performed By: #### [id number] ####[facility] ([facility])[address], [place] [address]Doqjlynhk [Mass/Vol]1.6 mg/dLLow1.9-2.7UnCleveland Clinic Fairview HospitalComment on above:Performed By: #### [id number] ####[facility] ([facility])[address], [place] [address]Jisdjfpbi [Mass/Vol]1.9 mg/dLNormal 1.9-2.7UnCleveland Clinic Fairview HospitalComment on above:Performed By: #### [id number] ####[facility] ([facility])[address] [place] [address] PHOSPHORUSon 18-34-0982Nlbifgoyn [Mass/Vol]3.0 mg/dLNormal2.5-5.0UnCleveland Clinic Fairview HospitalComment on above:Performed By: #### [id number] ####[facility] ([facility])[address], [place] [address]Ijoazwbpk [Mass/Vol]3.5 mg/dLNormal2.5-5.0UnCleveland Clinic Fairview HospitalComment on above:Performed By: #### [id number] ####[facility] ([facility])[address] [place] [address] POCT GLUCOSE METER UNSOLICITED RESULTSon 55-09-3918Rggzrav [Mass/Vol]148 mg/dL Mipl48-035KurfezxjefCleveland Clinic Fairview HospitalComment on above:Order Comment: Waived Testing in the ED is performed under the ED CLIA certificate #[id number]. Result Comment: [id number] By: #### [id number] ####[facility] ([facility])[address], [place] [address]Prckuki [Mass/Vol]153 mg/vJFldl22-051 [facility] HospitalComment on above:Order Comment: Waived Testing in the ED is performed under the ED CLIA certificate #[id number].Result Comment: [id number] By: #### [id number] ####[facility] ([facility])[address] [place] [address]Iifyxpb [Mass/Vol]170 mg/bAXhyw91-077YrhsgsdjilCleveland Clinic Fairview HospitalComment on above:Order Comment: Waived Testing in the ED is performed under the ED CLIA certificate #[id number].Result Comment: [id number] Performed By: #### [id number] ####[facility] ([facility])[address] [place] [address]TCNJG METABOLIC PANELon 74-31-4816Xzvdj gap [Moles/Vol]18 mmol/LNormal7-20UnCleveland Clinic Fairview HospitalComment on above:Performed By: #### [id number] ####[facility] ([facility])[address] [place] [address] Calcium [Mass/Vol]6.8 mg/dLLow8.6-10.3UnCleveland Clinic Fairview HospitalComment on above:Performed By: #### [id number] ####[facility] ([facility])[address] [place] [address]Mirmzihp [Moles/Vol]98 mmol/OHphjwd79-641AuxsxatlhiCleveland Clinic Fairview HospitalComment on above:Performed By: #### [id number] ####[facility] ([facility])[address] [place] [address]CH4 [Moles/Vol]15 mmol/ORot81-73 [facility] HospitalComment on above:Performed By: #### [id number] ####[facility] ([facility])[address], [place] [address]Cnnfmvzapr [Mass/Vol]2.92 mg/dLHigh0.70-1.30UnCleveland Clinic Fairview HospitalComment on above:Performed By: #### [id number] ####[facility] ([facility])[address], [place] [address]DXBUBROSFJ FILTRATION RATE ML/MIN/1.73 SQ M.LUJJLOMAM65.5 mL/min/1.73m*2Low>60.0UnCleveland Clinic Fairview HospitalComment on above:Result Comment: The [facility]???s estimated glomerular filtration rate (eGFR) will [...] potential consequences that do not disproportionately affect anyone group of individuals.Performed By: #### [id number] ####[facility] ([facility])[address] [place], [place] [address]Irktckk [Mass/Vol]181 mg/mJSjqg13-630XcdltjcwzuCleveland Clinic Fairview HospitalComment on above:Performed By: #### [id number] ####[facility] ([facility])[address], [place] [address]Piuzsadql [Moles/Vol]4.3 mmol/L Normal3.5-5.1UnCleveland Clinic Fairview HospitalComment on above:Performed By: #### [id number] ####[facility] ([facility])[address] [place] [address] Sodium [Moles/Vol]127 mmol/MZgc479-299TezdjzxtgnCleveland Clinic Fairview HospitalComment on above:Performed By: #### [id number] ####[facility] ([facility])[address], [place] [address]Ckzy nitrogen [Mass/Vol]41 mg/dLHigh7-25UnCleveland Clinic Fairview HospitalComment on above:Performed By: #### [id number] ####[facility] ([facility])[address], [place] [address]SCEH NITROGEN/CREATININE (MASS RATIO) IN SER/PLAS14.0NormalUniversMemorial Health System Selby General HospitalComment on above: Performed By: #### [id number] ####[facility] ([facility])[address], [place] [address]Rvwzt gap [Moles/Vol]16 mmol/LNormal7-20UnCleveland Clinic Fairview HospitalComment on above:Performed By: #### [id number] ####[facility] ([facility])[address], [place] [address]Rnsfdhc [Mass/Vol]7.1 mg/dLLow8.6-10.3 [facility] HospitalComment on above:Performed By: #### [id number] ####[facility] ([facility])[address], [place] [address]Uvmlieqf [Moles/Vol]97 mmol/DRma72-127BtezhsletaCleveland Clinic Fairview HospitalComment on above:Performed By: #### [id number] ####[facility] ([facility])[address], [place] [address]YK1 [Moles/Vol]18 mmol/GZfb21-08AfczrpladsCleveland Clinic Fairview HospitalComment on above:Performed By: #### [id number] ####[facility] ([facility])[address], [place] [address]Fwdxysxnxg [Mass/Vol]2.84 mg/dLHigh 0.70-1.30UnCleveland Clinic Fairview HospitalComment on above:Performed By: #### [id number] ####[facility] ([facility])[address], [place] [address]BAVMVHAOCH FILTRATION RATE ML/MIN/1.73 SQ M.OOUILQYVM63.3 mL/min/1.73m*2Low>60.0UnCleveland Clinic Fairview HospitalComment on above:Result Comment: The [facility]???s estimated glomerular filtration rate (eGFR) will [...] potential consequences that do not disproportionately affect anyone group of individuals. Performed By: #### [id number] ####[facility] ([facility], [place] [address]Bhqrjyv [Mass/Vol]168 mg/cQSqct79-713FmknejdnsgCleveland Clinic Fairview HospitalComment on above:Performed By: #### [id number] ####[facility] ([facility])[address], [place] [address]Gvlyslfsa [Moles/Vol]4.1 mmol/LNormal 3.5-5.1UnCleveland Clinic Fairview HospitalComment on above:Performed By: #### [id number] ####[facility] ([facility])[address], [place] [address]Hfyjxe [Moles/Vol]127 mmol/UFjy040-407DlwafrxpqwCleveland Clinic Fairview HospitalComment on above:Performed By: #### LAB15 ####[facility] ([facility])[address], [place] [address]Bdcy nitrogen [Mass/Vol]39 mg/dLHigh7-25UnCleveland Clinic Fairview HospitalComment on above:Performed By: #### [id number] ####[facility] ([facility])[address], [place] [address]SKVU NITROGEN/CREATININE (MASS RATIO) IN SER/PLAS13.7NormalUniversMemorial Health System Selby General HospitalComment on above: Performed By: #### [id number] ####[facility] ([facility])[address], [place] [address]Ifvom gap [Moles/Vol]14 mmol/LNormal7-20UnCleveland Clinic Fairview HospitalComment on above:Performed By: #### [id number] ####[facility] ([facility])[address] [place], [place] [address]Splryvz [Mass/Vol]7.2 mg/dLLow8.6-10.3 [facility] HospitalComment on above:Performed By: #### [id number] ####[facility] ([facility])[address] [place], [place] [address]Udhmtmyb [Moles/Vol]100 mmol/UOsklee19-122SzawuyemplCleveland Clinic Fairview HospitalComment on above:Performed By: #### [id number] ####[facility] ([facility])[address] [place], [place] [address]FP3 [Moles/Vol]19 mmol/CCsu46-47BwyubccsykCleveland Clinic Fairview HospitalComment on above:Performed By: #### [id number] ####[facility] ([facility])[address] [place] [address]Blgpraoulx [Mass/Vol]2.83 mg/dLHigh 0.70-1.30UnCleveland Clinic Fairview HospitalComment on above:Performed By: #### [id number] ####[facility] ([facility])[address] [place] [address]DSBYNJKPWG FILTRATION RATE ML/MIN/1.73 SQ M.GXMIBWAWP63.4 mL/min/1.73m*2Low>60.0UnCleveland Clinic Fairview HospitalComment on above:Result Comment: [facility]???s estimated glomerular filtration rate (eGFR) will [...] potential consequences that do not disproportionately affect anyone group of individuals. Performed By: #### [id number] ####[facility] ([facility])[address] [place] [address]Yjfkflq [Mass/Vol]128 mg/mZOnav51-116KvfeljbaalCleveland Clinic Fairview HospitalComment on above:Performed By: #### [id number] ####[facility] ([facility])[address] [place] [place] [address]Ugngbgdqj [Moles/Vol]4.2 mmol/LNormal 3.5-5.1UnCleveland Clinic Fairview HospitalComment on above:Performed By: #### [id number] ####[facility] ([facility])[address] [place] [address]Nswbmv [Moles/Vol]129 mmol/IUix435-972FdsqpzgkblCleveland Clinic Fairview HospitalComment on above:Performed By: #### [id number] ####[facility] ([facility] [address]Wtkk nitrogen [Mass/Vol]40 mg/dLHigh7-25UnCleveland Clinic Fairview HospitalComment on above:Performed By: #### [id number] ####[facility] ([facility])[address] [address]WNMQ NITROGEN/CREATININE (MASS RATIO) IN SER/PLAS14.1NormalUnCleveland Clinic Fairview HospitalComment on above: Performed By: #### [id number] ####[facility] ([facility])[address] [address]KPUht 76-27-1215Emuktydmkww distribution width (RBC) [Ratio]14.0 % Opgcgq60.5-15.0UnCleveland Clinic Fairview HospitalComment on above:Performed By: #### [id number] ####[facility] ([facility])[address] [place] [address] ERYTHROCYTE MEAN CORPUSCULAR HEMOGLOBIN CONCENTRATION (G/DL) BY WDNPHLGEJ44.8 g/yNIoijzn91.0-35.0UnCleveland Clinic Fairview HospitalComment on above:Performed By: #### [id number] ####[facility] ([facility])[address], [place] [address]Ftgnslqhjd (Bld) [Volume fraction]29.3 %Low39.0-50.0UnCleveland Clinic Fairview HospitalComment on above:Performed By: #### [id number] ####[facility] ([facility])[address], [place] [address]Vrlhogfxis (Bld) [Mass/Vol]10.2 g/dL Low13.0-17.0UnCleveland Clinic Fairview HospitalComment on above:Performed By: #### [id number] ####[facility] ([facility])[address], [place] [address]PNJ (RBC) [Entitic mass]32.2 scIldvvw14.0-33.0UnCleveland Clinic Fairview Hospital Comment on above:Performed By: #### [id number] ####[facility] ([facility])[address] [address]BOC (RBC) [Entitic vol]92.4 gWCwfbyn77.0-98.0 [facility] Memorial HospitalComment on above:Performed By: #### [id number] ####[facility] ([facility])[address] [address]CSFOMJWDB (10*3/UL) IN BLOOD AUTOMATED [id number] 10*3/xOZuvbrx937-698JsgjavbalfCleveland Clinic Fairview HospitalComment on above:Performed By: #### [id number] ####[facility] ([facility])[address] [address]VIY (Bld) [#/Vol]3.17 10*6/uLLow 4.20-5.70UnCleveland Clinic Fairview HospitalComment on above:Performed By: #### [id number] ####[facility] ([facility])[address] [address]WRP (Bld) [#/Vol]6.84 10*3/uLNormal4.00-10.60UnCleveland Clinic Fairview HospitalComment on above:Performed By: #### [id number] ####[facility] ([facility])[address] [address]GK-PWUOISQBqd 73-41-0210Slsgitgduk (Bld) [Mass/Vol]10.9 g/dL NormalUnCleveland Clinic Fairview HospitalComment on above:Performed By: #### [id number] ####[facility] [id number] [place] [address] USAOxygen saturation in Blood59.6 %NormalUnCleveland Clinic Fairview HospitalComment on above:Performed By: #### [id number] ####[facility] [id number] [place] [address] USAOXYGENATED HEMOGLOBIN IN BLOOD58.7 %NormalMemorial Health System Marietta Memorial HospitalComment on above:Performed By: #### [id number] ####[facility] [id number] [place] [address] USACREATININE, URINE, RANDOMon 24-40-6599Nfprkfhmjn (U) [Mass/Vol]83.0 mg/lMKsegkc38-894GnwefyfhwiCleveland Clinic Fairview HospitalComment on above:Performed By: #### [id number] ####[facility] ([facility])[address], [place] [address]MBPZIKMOPzf 04-26-2025 Magnesium [Mass/Vol]2.0 mg/dLNormal1.9-2.7UnCleveland Clinic Fairview Hospital Comment on above:Performed By: #### [id number] ####[facility] ([facility])[address], [place] [address]Thmzdvvkv [Mass/Vol]2.1 mg/dLNormal1.9-2.7 [facility] HospitalComment on above:Performed By: #### [id number] ####[facility] ([facility])[address], [place] [address]Kqpizuazo [Mass/Vol]1.8 mg/dLLow1.9-2.7UnCleveland Clinic Fairview HospitalComment on above:Performed By: #### [id number] ####[facility] ([facility])[address], [place] [address]SQHFINETUEqm 84-12-5104Klsaakdoe [Mass/Vol]3.4 mg/dLNormal 2.5-5.0UnCleveland Clinic Fairview HospitalComment on above:Performed By: #### [id number] ####[facility] ([facility])[address] [place], [place] [address]Wmtcrctsq [Mass/Vol]2.8 mg/dLNormal2.5-5.0UnCleveland Clinic Fairview HospitalComment on above:Performed By: #### [id number] ####[facility] ([facility])[address] [place], [place] [address]Fckqfjhsc [Mass/Vol]2.6 mg/dLNormal2.5-5.0UnCleveland Clinic Fairview HospitalComment on above:Performed By: #### [id number] ####[facility] ([facility])[address] [place], [place] [address]GUPQEQ, URINE, RANDOMon 39-14-4114Kgpeem (U) [Moles/Vol]92 mmol/LNormalUnCleveland Clinic Fairview HospitalComment on above:Performed By: #### [id number] ####[facility] ([facility])[address], [place] [address]NTCY NITROGEN, URINEon 84-53-8777Tgum nitrogen (U) [Mass/Vol]237 mg/dLNormalUniversMemorial Health System Selby General HospitalComment on above:Performed By: #### [id number] ####[facility] ([facility])[address], [place] [address]JJWIQKYECPvg 75-47-5512GNMGMXRHP, TOTAL PRESENCE IN URINE NegativeNormalNegativeUnCleveland Clinic Fairview HospitalComment on above:Order Comment: Microscopics not performed on urines with negative chemical reactions unless requested on original order.Performed By: #### [id number] ####[facility] ([facility])[address], [place] [address]Oeyhren (U)ClearNormalClear [facility] HospitalComment on above:Order Comment: Microscopics not performed on urines with negative chemical reactions unless requested on original order.Performed By: #### [id number] ####[facility] ([facility])[address], [place] [address]Ctlud (U)Light-YellowNormalColorless, Yellow, Light-YellowMemorial Health System Marietta Memorial HospitalComment on above:Order Comment: Microscopics not performed on urines with negative chemical reactions unless requested on original order.Performed By: #### [id number] ####[facility] ([facility])[address] [place], [place] [address]Aoymwev (U) [Mass/Vol]250 mg/dL AbnormalNormalUniMercer County Community HospitalComgarden city hospital on above:Order Comment: Microscopics not performed on urines with negative chemical reactions unless requested on original order.Performed By: #### [id number] ####[facility] ([facility])[address] [place], [place] [address]KAOKHORWEI PRESENCE IN URINENegative NormalNegativeUnCleveland Clinic Fairview HospitalComment on above:Order Comment: Microscopics not performed on urines with negative chemical reactions unless requested on original order.Performed By: #### [id number] ####[facility] ([facility])[address] [facility] [place], [place] [address]Ewdheah Ql (U)NegativeNormalNegative [facility] Memorial HospitalComment on above:Order Comment: Microscopics not performed on urines with negative chemical reactions unless requested on original order.Performed By: #### [id number] ####[facility] ([facility])[address] [facility] [place], [place] [address]XGPJVBVJR ESTERASE PRESENCE IN URINE BY TEST STRIP NegativeNothe outer banks hospitalNegativeUnCleveland Clinic Fairview HospitalComment on above:Order Comment: Microscopics not performed on urines with negative chemical reactions unless requested on original order.Performed By: #### [id number] ####[facility] ([facility])[address] MAGGIEENCOM[facility] [place], [place] [address]NSEMRGE PRESENCE IN URINENegative NormalNegativeUnCleveland Clinic Fairview HospitalComment on above:Order Comment: Microscopics not performed on urines with negative chemical reactions unless requested on original order.Performed By: #### [id number] ####[facility] ([facility])[address] [facility]ERRANOENCOM[facility] [place] [place], [place] [address]aA (U)5.0 [pH]Normal5.0-8.0UnCleveland Clinic Fairview HospitalComment on above:Order Comment: Microscopics not performed on urines with negative chemical reactions unless requested on original order.Performed By: #### [id number] ####[facility] ([facility])[address] MAG[facility]IEENCOM[facility] [place], [place] [address]Dhricwi (U) [Mass/Vol]NegativeNormalNegative [facility] HospitalComment on above:Order Comment: Microscopics not performed on urines with negative chemical reactions unless requested on original order.Performed By: #### [id number] ####[facility] ([facility])[address] MAGGIEENCOM[facility] [place], [place] [address]Vvptgehg gravity (U) [Rel density]1.013Normal 1.010-1.030UnCleveland Clinic Fairview HospitalComment on above:Order Comment: Microscopics not performed on urines with negative chemical reactions unless requested on original order.Performed By: #### [id number] ####[facility] ([facility])[address], [place] [address]UCRVMZEROHBP (MG/DL) IN URINENormal NormalNormalUniMercer County Community HospitalComment on above:Order Comment: Microscopics not performed on urines with negative chemical reactions unless requested on original order.Performed By: #### [id number] ####[facility] ([facility])[address], [place] [address]da [id number] of [place]edo Medical CenterBASIC METABOLIC PANELon 58-39-1987Dxklm gap [Moles/Vol]12 mmol/LNormal7-20[facility] HospitalComment on above:Performed By: #### [id number] ####[facility] ([facility])[address] [place] [address] Calcium [Mass/Vol]7.1 mg/dLLow8.6-10.3UnCleveland Clinic Fairview HospitalComment on above:Performed By: #### [id number] ####[facility] ([facility])[address], [place] [address]Bpskqiry [Moles/Vol]99 mmol/KRgghlb92-534DrsrmvpkolMemorial Health System Marietta Memorial HospitalComment on above:Performed By: #### [id number] ####[facility] ([facility])[address], [place] [address]EC5 [Moles/Vol]24 mmol/THennpf81-09 [facility] HospitalComment on above:Performed By: #### [id number] ####[facility] ([facility])[address] [place], [place] [address]Wjnbzfknzv [Mass/Vol]2.96 mg/dLHigh0.70-1.30UnCleveland Clinic Fairview HospitalComment on above:Performed By: #### [id number] ####[facility] ([facility])[address] [place], [place] [address]GKOCDKSOHZ FILTRATION RATE ML/MIN/1.73 SQ M.YCDQLNHEV39.2 mL/min/1.73m*2Low>60.0UnCleveland Clinic Fairview HospitalComment on above:Result Comment: The [facility]???s estimated glomerular filtration rate (eGFR) will [...] potential consequences that do not disproportionately affect anyone group of individuals.Performed By: #### [id number] ####[facility] ([facility])[address] [place], [place] [address]Hmxvlwi [Mass/Vol]130 mg/pZNhuy72-806MmqtudhyliCleveland Clinic Fairview HospitalComment on above:Performed By: #### [id number] ####[facility] ([facility])[address] [place], [place] [address]Impxzniqq [Moles/Vol]3.4 mmol/L Low3.5-5.1UnCleveland Clinic Fairview HospitalComment on above:Performed By: #### [id number] ####[facility] ([facility])[address] [place], [place] [address]Oqphkt [Moles/Vol]132 mmol/JEyl294-964LkjjvxjwgbCleveland Clinic Fairview HospitalComment on above:Performed By: #### [id number] ####[facility] ([facility])[address] [place], [place] [address]Uywa nitrogen [Mass/Vol]40 mg/dLHigh7-25UnCleveland Clinic Fairview HospitalComment on above:Performed By: #### [id number] ####[facility] ([facility])[address] [place], [place] [address]FTKG NITROGEN/CREATININE (MASS RATIO) IN SER/PLAS13.5NormalUniversMemorial Health System Selby General HospitalComment on above: Performed By: #### [id number] ####[facility] ([facility])[address] [place], [place] [address]Pwclx gap [Moles/Vol]12 mmol/LNormal7-20UnCleveland Clinic Fairview HospitalComment on above:Performed By: #### [id number] ####[facility] ([facility])[address] [place], [place] [address]Rhngqdn [Mass/Vol]7.5 mg/dLLow8.6-10.3 [facility] HospitalComment on above:Performed By: #### [id number] ####[facility] ([facility])[address] [place], [place] [address]Vyqsdaer [Moles/Vol]99 mmol/PQaaeiu65-117PblkbobdzjCleveland Clinic Fairview HospitalComment on above:Performed By: #### [id number] ####[facility] ([facility])[address] [place], [place] [address]JV2 [Moles/Vol]24 mmol/TUczsou83-52VyurjwggzoCleveland Clinic Fairview HospitalComment on above:Performed By: #### [id number] ####[facility] ([facility])[address] [place], [place] [address]Fxlkwsflct [Mass/Vol]2.57 mg/dLHigh 0.70-1.30UnCleveland Clinic Fairview HospitalComment on above:Performed By: #### [id number] ####[facility] ([facility])[address] [place], [place] [address]VNZDVAOAQS FILTRATION RATE ML/MIN/1.73 SQ M.ATANUCWJG02.2 mL/min/1.73m*2Low>60.0UnCleveland Clinic Fairview HospitalComment on above:Result Comment: The [facility]???s estimated glomerular filtration rate (eGFR) will [...] potential consequences that do not disproportionately affect anyone group of individuals. Performed By: #### [id number] ####[facility] ([facility])[address] [address]Qqqstfk [Mass/Vol]125 mg/cEKcwj37-029ZmsbqykbeuCleveland Clinic Fairview HospitalComment on above:Performed By: #### [id number] ####[facility] ([facility])[address] [place] [address]Gkedraktt [Moles/Vol]3.7 mmol/LNormal 3.5-5.1UnCleveland Clinic Fairview HospitalComment on above:Performed By: #### [id number] ####[facility] ([facility])[address] [address]Ygbgmx [Moles/Vol]131 mmol/DZsq478-387XkjspjygoaCleveland Clinic Fairview HospitalComment on above:Performed By: #### [id number] ####[facility] ([facility])[address], [place] [address]Jykm nitrogen [Mass/Vol]33 mg/dLHigh7-25UnCleveland Clinic Fairview HospitalComment on above:Performed By: #### [id number] ####[facility] ([facility])[address], [place] [address]JHAG NITROGEN/CREATININE (MASS RATIO) IN SER/PLAS12.8NormalUniversMemorial Health System Selby General HospitalComment on above: Performed By: #### [id number] ####[facility] ([facility])[address], [place] [address]IQQhn 46-15-7524Lclgbemqoqg distribution width (RBC) [Ratio]13.9 % Bylqbb30.5-15.0UnCleveland Clinic Fairview HospitalComment on above:Performed By: #### [id number] ####[facility] ([facility])[address] [place] [address] ERYTHROCYTE MEAN CORPUSCULAR HEMOGLOBIN CONCENTRATION (G/DL) BY FHAXXNOBP91.4 g/zESapedv71.0-35.0UnCleveland Clinic Fairview HospitalComment on above:Performed By: #### [id number] ####[facility] ([facility])[address] [place] [address]Umwplidxwd (Bld) [Volume fraction]30.2 %Low39.0-50.0[facility] HospitalComment on above:Performed By: #### [id number] ####[facility] ([facility])[address] [place] [address]Tdbrahkgwt (Bld) [Mass/Vol]10.4 g/dL Low13.0-17.0UnCleveland Clinic Fairview HospitalComment on above:Performed By: #### [id number] ####[facility] ([facility])[address] [place] [address]UMI (RBC) [Entitic mass]32.1 jnXrqacf66.0-33.0[facility] Comment on above:Performed By: #### [id number] ####[facility] ([facility])[address] [place] [address]CZR (RBC) [Entitic vol]93.2 gLRmvihr02.0-98.0 [facility] HospitalComment on above:Performed By: #### [id number] ####[facility] ([facility])[address] [place] [address]XPNJDUXWX (10*3/UL) IN BLOOD AUTOMATED KUZBP564 10*3/xKMbtzrt764-139KtufcndtsrCleveland Clinic Fairview HospitalComment on above:Performed By: #### [id number] ####[facility] ([facility])[address] [place] [address]JIJ (Bld) [#/Vol]3.24 10*6/uLLow 4.20-5.70UnCleveland Clinic Fairview HospitalComment on above:Performed By: #### [id number] ####[facility] ([facility])[address] [place] [address]HOD (Bld) [#/Vol]6.72 10*3/uLNormal4.00-10.60UnCleveland Clinic Fairview HospitalComment on above:Performed By: #### [id number] ####[facility] ([facility])[address] [address]AILBKFXbf 13-36-9398PNLMWVYMzxxjbXelhszziik [facility] HospitalMAGNESIUMon 90-78-8439Inznhpxss [Mass/Vol]1.9 mg/dLNormal1.9-2.7 [facility] HospitalComment on above:Performed By: #### [id number] ####[facility] ([facility] [place] [address]UFUNMCSMIGkk 01-94-3070Lsgwivgnj [Mass/Vol]3.5 mg/dLNormal2.5-5.0UnCleveland Clinic Fairview HospitalComment on above:Performed By: #### [id number] ####[facility] ([facility])[address] [address]se [id number] patient is Moderately Stable - Low risk of patient condition declining or worsening The patient's goals for the shift include comfort The clinical goals for the shift include VSS, safetyNormalUniversity of Baylor Scott & White Medical Center – Round RockANESon 82-80-6561NPLAWhrstjXbshqsxyyq [facility] BASIC METABOLIC PANELon 44-63-7614Tlbmb gap [Moles/Vol]16 mmol/LNormal7-20 [facility] HospitalComment on above:Performed By: #### [id number] ####[facility] ([facility])[address] [place] [address]Gwddymf [Mass/Vol]8.0 mg/dLLow8.6-10.3UnCleveland Clinic Fairview HospitalComment on above:Performed By: #### [id number] ####[facility] ([facility])[address] [place] [address]Xdrztjpp [Moles/Vol]100 mmol/BSfmmkz05-593DwzutvjxbtCleveland Clinic Fairview HospitalComment on above:Performed By: #### [id number] ####[facility] ([facility])[address] [place] [address]VA8 [Moles/Vol]19 mmol/YZbk73-20 [facility] HospitalComment on above:Performed By: #### LAB15 ####[facility] ([facility])[address] [place] [place] [address]Tmvwpcmfyb [Mass/Vol]1.45 mg/dLHigh0.70-1.30UnCleveland Clinic Fairview HospitalComment on above:Performed By: #### LAB15 ####[facility] ([facility])[address] [place] [address]UOYHRWDVFD FILTRATION RATE ML/MIN/1.73 SQ M.NOHNEOGYL13.2 mL/min/1.73m*2Low>60.0UnCleveland Clinic Fairview HospitalComment on above:Result Comment: The [facility]???s estimated glomerular filtration rate (eGFR) will [...] potential consequences that do not disproportionately affect anyone group of individuals.Performed By: #### [id number] ####[facility] ([facility])[address] [place] [address]Rkdrytf [Mass/Vol]122 mg/jVMwwc42-836DqkvuvokegCleveland Clinic Fairview HospitalComment on above:Performed By: #### LAB15 ####[facility] ([facility])[address] [place] [address]Qrrrnqqkl [Moles/Vol]3.9 mmol/L Normal3.5-5.1UnCleveland Clinic Fairview HospitalComment on above:Performed By: #### [id number] ####[facility] ([facility])[address] [place] [address] Sodium [Moles/Vol]131 mmol/PJhb618-436YdnbgdwjwnCleveland Clinic Fairview HospitalComment on above:Performed By: #### [id number] ####[facility] ([facility])[address] [place], [place] [address]Jtau nitrogen [Mass/Vol]24 mg/dLNormal7-25UnCleveland Clinic Fairview HospitalComment on above:Performed By: #### [id number] ####[facility] ([facility])[address] [place] [address]NERD NITROGEN/CREATININE (MASS RATIO) IN SER/PLAS16.6NormalUniversMemorial Health System Selby General HospitalComment on above: Performed By: #### [id number] ####[facility] ([facility])[address] [address]SQEjf 97-16-5[address]Vwbeemxjppi distribution width (RBC) [Ratio]13.9 % Aeyoko95.5-15.0UnCleveland Clinic Fairview HospitalComment on above:Performed By: #### [id number] ####[facility] ([facility])[address] [place] [address] ERYTHROCYTE MEAN CORPUSCULAR HEMOGLOBIN CONCENTRATION (G/DL) BY PTPRIIDES01.8 g/rDGwjrnf49.0-35.0UnCleveland Clinic Fairview HospitalComment on above:Performed By: #### [id number] ####[facility] ([facility])[address], [place] [address]Wdypduimrs (Bld) [Volume fraction]33.1 %Low39.0-50.0UnCleveland Clinic Fairview HospitalComment on above:Performed By: #### [id number] ####[facility] ([facility])[address], [place] [address]Rqqhvsidgy (Bld) [Mass/Vol]11.2 g/dL Low13.0-17.0UnCleveland Clinic Fairview HospitalComment on above:Performed By: #### [id number] ####[facility] ([facility])[address], [place] [address]CIQ (RBC) [Entitic mass]31.8 fkUnmtpl91.0-33.0UnCleveland Clinic Fairview Hospital Comment on above:Performed By: #### [id number] ####[facility] [place], [place] [address]OPK (RBC) [Entitic vol]94.0 qCYifzcj61.0-98.0 [facility] HospitalComment on above:Performed By: #### [id number] ####[facility] ([facility])[address] [place] [id number] (10*3/UL) IN BLOOD AUTOMATED [id number] 10*3/pQAfxvbs842-054XunnzeixdlCleveland Clinic Fairview HospitalComment on above:Performed By: #### [id number] ####[facility] [facility] ([facility])[address] [place] [address]LVP (Bld) [#/Vol]3.52 10*6/uLLow 4.20-5.70[facility] Memorial HospitalComment on above:Performed By: #### [id number] ####[facility] ([facility])[address] [place] [address]TBJ (Bld) [#/Vol]5.70 10*3/uLNormal4.00-10.60UnCleveland Clinic Fairview HospitalComment on above:Performed By: #### [id number] ####[facility] ([facility])[address] [place] [address]UGyf 03-07-0824YDWdofdpPokbvaiicf of [facility] CenterHP H&P reviewed. The patient was examined and there are no changes to the H&P. He continues to be hypotensive. We will proceed with right heart catheterization as requested by the primary cardiology service.NormalUnCleveland Clinic Fairview HospitalLIPID PANELon 21-61-1682DFSI/HDL3.4 mg/dLNormalUniversMemorial Health System Selby General HospitalComment on above:Performed By: #### [id number] ####[facility] ([facility])[address] [place] [address]Kocacfnpwse [Mass/Vol]98 mg/dLLow 120-200UnCleveland Clinic Fairview HospitalComment on above:Performed By: #### [id number] ####[facility] ([facility])[address] [place], [place] [address]Pffzxmhzu [Mass/Vol]75 mg/dLNormal<150UnCleveland Clinic Fairview HospitalComment on above: Result Comment: TRIGLYCERIDE REFERENCE RANGE:20 YEARS AND OLDER CARDIOVASCULAR RISKLESS THAN 150 mg/dL LOW [id number] TO 199 mg/dL BORDERLINE HEEF863 mg/dL AND GREATER HIGH RISKPerformed By: #### [id number] ####[facility] ([facility])[address] [place], [place] [address]Hrjajcmhf [Mass/Vol]54 mg/dLNormal0-160UnCleveland Clinic Fairview HospitalComment on above:Performed By: #### [id number] ####[facility] ([facility])[address] [place], [place] [address]Pomymduqw [Mass/Vol]29 mg/yWHivkng23-36FribmtrsvhCleveland Clinic Fairview HospitalComment on above:Performed By: #### [id number] ####[facility] ([facility])[address] [place] [address] NON HDL CHOL. (LDL+VLDL)69NormalUniversMemorial Health System Selby General HospitalComment on above:Performed By: #### [id number] ####[facility] ([facility])[address] [place], [place] [address]PBAFQ VLDL-C15 mg/dLNormal0-40UnCleveland Clinic Fairview HospitalComment on above:Performed By: #### [id number] ####[facility] ([facility])[address] [place], [place] [address]KVRIEFHXOwt 28-14-5174Xbzzlwjyc [Mass/Vol]1.9 mg/dLNormal1.9-2.7UnCleveland Clinic Fairview HospitalComment on above:Performed By: #### [id number] ####[facility] ([facility])[address] [place], [place] [address]52rm 48-79-[address]852YpqizyHiwwzwtwoqKindred Hospital Lima30 NormalUnCleveland Clinic Fairview HospitalC-REACTIVE PROTEINon 5C REACTIVE PROTEIN (MG/L) IN SER/PLAS39.4 mg/LHigh<=5.0UnCleveland Clinic Fairview HospitalComment on above:Result Comment: Testing performed using a new methodology, turbidimetry. Normal ranges have been updated. Old normal range was <8 mg/L.Performed By: #### [id number] ####[facility] ([facility])[address] [place], [place] [address]LFF WITH AUTO DIFFERENTIALon 34-66-1514Plvugdwkk (Bld) [#/Vol]0.03 10*3/uLNormal0.00-0.20UnCleveland Clinic Fairview HospitalComment on above:Performed By: #### [id number] ####[facility] ([facility])[address] [place], [place] [address]Hjwccrcis/100 WBC (Bld)0.5 %Normal0.0-1.0UnCleveland Clinic Fairview HospitalComment on above:Performed By: #### [id number] ####[facility] ([facility])[address] [place], [place] [address]Mssvgphgrbo (Bld) [#/Vol]0.10 10*3/uL Normal0.00-0.50UnCleveland Clinic Fairview HospitalComment on above:Performed By: #### [id number] ####[facility] ([facility])[address] [place] [address] Eosinophils/100 WBC (Bld)1.8 %Normal0.0-6.0UnCleveland Clinic Fairview Hospital Comment on above:Performed By: #### [id number] ####[facility] ([facility])[address] [place], [place] [address]Exfenhjbbju distribution width (RBC) [Ratio]13.9 % Puyyoi50.5-15.0UnCleveland Clinic Fairview HospitalComment on above:Performed By: #### [id number] ####[facility] ([facility])[address] [place] [address] ERYTHROCYTE MEAN CORPUSCULAR HEMOGLOBIN CONCENTRATION (G/DL) BY FYXHSSLZU21.0 g/vBQsizpm84.0-35.0UnCleveland Clinic Fairview HospitalComment on above:Performed By: #### [id number] ####[facility] ([facility])[address] [place] [address]Fvjnrljget (Bld) [Volume fraction]35.0 %Low39.0-50.0UnCleveland Clinic Fairview HospitalComment on above:Performed By: #### [id number] ####[facility] ([facility])[address] [place] [address]Dpgcfyhbnv (Bld) [Mass/Vol]11.9 g/dL Low13.0-17.0UnCleveland Clinic Fairview HospitalComment on above:Performed By: #### [id number] ####[facility] ([facility])[address] [place] [address] Immature granulocytes (Bld) [#/Vol]0.02 10*3/uLNormal0.00-0.20UnCleveland Clinic Fairview HospitalComment on above:Performed By: #### [id number] ####[facility] ([facility])[address] [place] [address]Vladrpys granulocytes/100 WBC (Bld)0.4 %Normal0.0-1.0UnCleveland Clinic Fairview HospitalComment on above: Performed By: #### [id number] ####[facility] ([facility])[address] [place] [address]Khgtspuhaqe (Bld) [#/Vol]1.26 10*3/uLNormal1.20-4.00 [facility] HospitalComment on above:Performed By: #### [id number] ####[facility] ([facility] [place] [address]Oiqrxzrbnnw/100 WBC (Bld)22.5 %Segyaf88.0-45.0UnCleveland Clinic Fairview HospitalComment on above:Performed By: #### [id number] ####[facility] ([facility])[address] [place] [address]XBX (RBC) [Entitic mass]31.9 dkYsimxa98.0-33.0UnCleveland Clinic Fairview HospitalComment on above:Performed By: #### [id number] ####[facility] ([facility])[address] [place] [address]RCF (RBC) [Entitic vol] 93.8 vTIoovss27.0-98.0UnCleveland Clinic Fairview HospitalComment on above: Performed By: #### [id number] ####[facility] ([facility])[address] [place] [address]Xrxjrbahs (Bld) [#/Vol]0.99 10*3/uLNormal0.10-1.00UnCleveland Clinic Fairview HospitalComment on above:Performed By: #### [id number] ####[facility] ([facility])[address] [place] [address]Jahiqusyv/100 WBC (Bld) 17.7 %High5.0-12.0UnCleveland Clinic Fairview HospitalComment on above:Performed By: #### [id number] ####[facility] ([facility])[address] [place] [address]Vlaxiozxino (Bld) [#/Vol]3.20 10*3/uLNormal1.60-7.60UnCleveland Clinic Fairview HospitalComment on above:Performed By: #### [id number] ####[facility] ([facility])[address] [place] [address]Zqaeupwudyd/100 WBC (Bld)57.1 %Normal 40.0-72.0UnCleveland Clinic Fairview HospitalComment on above:Performed By: #### [id number] ####[facility] ([facility])[address] [place] [address]QWXZ (PER 100 WBCS) BY AUTOMATED COUNT0.0 %Itdwyb9QvgpzmlhihCleveland Clinic Fairview Hospital Comment on above:Performed By: #### [id number] ####[facility] ([facility])[address] [place] [address]GWUDEOAIG (10*3/UL) IN BLOOD AUTOMATED [id number] 10*3/kWHvakey307-622TvcjnhitqoCleveland Clinic Fairview HospitalComment on above: Performed By: #### [id number] ####[facility] ([facility])[address] [place] [address]BRX (Bld) [#/Vol]3.73 10*6/uLLow4.20-5.70UnCleveland Clinic Fairview HospitalComment on above:Performed By: #### [id number] ####[facility] ([facility])[address] [place] [address]ULR (Bld) [#/Vol]5.60 10*3/uLNormal 4.00-10.60UnCleveland Clinic Fairview HospitalComment on above:Performed By: #### [id number] ####[facility] ([facility])[address] [place] [address] COMPREHENSIVE METABOLIC PANELon 80-18-6271Zsqsxhm [Mass/Vol]3.7 g/dLNormal 3.5-5.7UnCleveland Clinic Fairview HospitalComment on above:Performed By: #### [id number] ####[facility] ([facility])[address] [place] [address]OTI [Catalytic activity/Vol]48 U/RQrbybg09-326UkebkgmumrCleveland Clinic Fairview Hospital Comment on above:Performed By: #### [id number] ####[facility] ([facility])[address] [place] [address]EIK [Catalytic activity/Vol]18 U/LNormal7-52 [facility] HospitalComment on above:Performed By: #### [id number] ####[facility] ([facility])[address] [place] [address]Ojdwp gap [Moles/Vol]13 mmol/LNormal7-20UnCleveland Clinic Fairview HospitalComment on above:Performed By: #### [id number] ####[facility] ([facility])[address], [place] [address]USI [Catalytic activity/Vol]34 U/HPapjdr80-54VzfnovzcqzCleveland Clinic Fairview HospitalComment on above:Performed By: #### [id number] ####[facility] ([facility])[address], [place] [address]Mhjnlpcrk [Mass/Vol]0.5 mg/dL Normal0.3-1.0UnCleveland Clinic Fairview HospitalComment on above:Performed By: #### [id number] ####[facility] ([facility])[address] [place] [address] Calcium [Mass/Vol]8.4 mg/dLLow8.6-10.3UnCleveland Clinic Fairview HospitalComment on above:Performed By: #### [id number] ####[facility] ([facility])[address] [place] [address]Yybajryw [Moles/Vol]99 mmol/QWmmaak11-443PqsurtefeoCleveland Clinic Fairview HospitalComment on above:Performed By: #### [id number] ####[facility] ([facility])[address] [place] [address]FA2 [Moles/Vol]26 mmol/QKbwonx97-29 [facility] HospitalComment on above:Performed By: #### [id number] ####[facility] ([facility])[address] [place] [address]Tmvifxzfhg [Mass/Vol]1.11 mg/dLNormal0.70-1.30UnCleveland Clinic Fairview HospitalComment on above:Performed By: #### [id number] ####[facility] ([facility])[address] [place] [address]UVJLHUCWKL FILTRATION RATE ML/MIN/1.73 SQ M.SYJSOAKON88.9 mL/min/1.73m*2Normal>60.0UnCleveland Clinic Fairview HospitalComment on above: Result Comment: The [facility]???s estimated glomerular filtration rate (eGFR) will [...] potential consequences that do not disproportionately affect anyone group of individuals.Performed By: #### [id number] ####[facility] ([facility])[address] [place], [place] [address]Wiyovdi [Mass/Vol]125 mg/xSXycm22-123RqbefkaridCleveland Clinic Fairview HospitalComment on above:Performed By: #### [id number] ####[facility] ([facility])[address] [place], [place] [address]Ozfmgdnky [Moles/Vol]4.1 mmol/L Normal3.5-5.1UnCleveland Clinic Fairview HospitalComment on above:Performed By: #### [id number] ####[facility] ([facility])[address] [place] [address] Protein [Mass/Vol]6.8 g/dLNormal6.0-8.3UnCleveland Clinic Fairview Hospital Comment on above:Performed By: #### [id number] ####[facility] ([facility])[address] [place], [place] [address]Qlfdss [Moles/Vol]134 mmol/MMqh919-288PnbpybkanwCleveland Clinic Fairview HospitalComment on above:Performed By: #### [id number] ####[facility] ([facility])[address] [place], [place] [address]Shmy nitrogen [Mass/Vol] 18 mg/dLNormal7-25UnCleveland Clinic Fairview HospitalComment on above:Performed By: #### [id number] ####[facility] ([facility])[address] [place] [address] UREA NITROGEN/CREATININE (MASS RATIO) IN SER/PLAS16.2NormalUnCleveland Clinic Fairview HospitalComment on above:Performed By: #### [id number] ####[facility] ([facility])[address] [place], [place] [address]NX CERVICAL SPINE WO IV CONTRASTon 46-61-0107JF CERVICAL SPINE WO IV CONTRASTInvalid Interpretation CodeMemorial Health System Marietta Memorial HospitalCT HEAD WO IV CONTRASTon [id number] HEAD WO IV CONTRASTInvalid Interpretation CodeMemorial Health System Marietta Memorial HospitalCTA CHEST W IV CONTRASTon 54-72-8508DYY CHEST W IV CONTRASTNormalUniversMemorial Health System Selby General HospitalMAGNESIUMon 63-67-9996Cqqoigzfy [Mass/Vol]1.6 mg/dLLow1.9-2.7 [facility] HospitalComment on above:Performed By: #### [id number] ####[facility] ([facility])[address] [place], [place] [address]DPIEPVZOmp 88-20-3725QBWZIHHGRzcbluDtnfsdktyw of [facility] [facility] Rlshzv11fr NormalUnCleveland Clinic Fairview Hospital30The patient is Moderately Stable - Low risk of patient condition declining or worsening The patient's goals for the shift include comfort, rest The clinical goals for the shift include stable hemodynamicsNormalUniversMemorial Health System Selby General Hospital30on 76-50-679443OgzcuhSbtnsmsjvu of [facility] 30NormalUniversMemorial Health System Selby General Hospital30on 85-48-785840ExsepgCpulxvetpd of [place] [facility] Ziwxlf10LebaudIybgczrrpqMemorial Health System Selby General HospitalBASIC METABOLIC PANELon 72-31-6287Ploey gap [Moles/Vol]12 mmol/LNormal7-20UnCleveland Clinic Fairview HospitalComment on above:Performed By: #### [id number] ####[facility] ([facility])[address] [place], [place] [address]Kfoibpt [Mass/Vol]8.8 mg/dLNormal 8.6-10.3[facility] HospitalComment on above:Performed By: #### [id number] ####[facility] ([facility])[address] [place], [place] [address]Dlbfovwt [Moles/Vol]93 mmol/JZer89-401LukejskeanCleveland Clinic Fairview HospitalComment on above:Performed By: #### [id number] ####[facility] ([facility])[address] [place], [place] [address]BM5 [Moles/Vol]26 mmol/JDhfmqi13-85WuvjvgcbjhCleveland Clinic Fairview HospitalComment on above:Performed By: #### [id number] ####[facility] ([facility])[address] [place], [place] [address]Nnmnafrixp [Mass/Vol]0.94 mg/dLNormal 0.70-1.30UnCleveland Clinic Fairview HospitalComment on above:Performed By: #### [id number] ####[facility] ([facility])[address] [place] [address]FYDNTVFMDL FILTRATION RATE ML/MIN/1.73 SQ M.SBQLIXACD79.8 mL/min/1.73m*2Normal>60.0 [facility] HospitalComment on above:Result Comment: The [facility]???s estimated glomerular filtration rate (eG FR) will no longer include consideration of race [...] potential consequences that do not disproportionately affect anyone group of individuals. Performed By: #### [id number] ####[facility] ([facility])[address] [place] [address]Liintyv [Mass/Vol]127 mg/kQFzls28-101VodhhrxjdhCleveland Clinic Fairview HospitalComment on above:Performed By: #### [id number] ####[facility] ([facility])[address] [place] [address]Ozyohrztf [Moles/Vol]3.9 mmol/LNormal 3.5-5.1UnCleveland Clinic Fairview HospitalComment on above:Performed By: #### [id number] ####[facility] ([facility])[address] [place] [place] [address]Emxaci [Moles/Vol]127 mmol/UJjt613-212AfmhjpcrhkCleveland Clinic Fairview HospitalComment on above:Performed By: #### [id number] ####[facility] ([facility])[address], [place] [address]Yajb nitrogen [Mass/Vol]16 mg/dLNormal7-25UnCleveland Clinic Fairview HospitalComment on above:Performed By: #### [id number] ####[facility] ([facility])[address], [place] [address]GRAS NITROGEN/CREATININE (MASS RATIO) IN SER/PLAS17.0NormalUniMercer County Community HospitalComment on above: Performed By: #### [id number] ####[facility] ([facility])[address] [place] [address]MEEXB CULTUREon 76-85-0005Apbazuqn identified Cx Nom (Bld)No growth at 5 daysNormalUniversMemorial Health System Selby General HospitalComment on above:Performed By: #### [id number] ####[facility] ([facility])[address] [place] [address] Order Comment: From a different site than #1.CBCon 89-86-9338Teexbemsqql distribution width (RBC) [Ratio]13.9 %Jzfaic13.5-15.0UnCleveland Clinic Fairview HospitalComment on above:Performed By: #### [id number] ####[facility] ([facility])[address], [place] [address]ITGSDDQAFMJ MEAN CORPUSCULAR HEMOGLOBIN CONCENTRATION (G/DL) BY CSTRFWHSQ93.6 g/uSRmzx55.0-35.0UnCleveland Clinic Fairview HospitalComment on above:Performed By: #### [id number] ####[facility] ([facility])[address], [place] [address]Pwsezzmvig (Bld) [Volume fraction]34.0 %Low39.0-50.0UnCleveland Clinic Fairview HospitalComment on above: Performed By: #### [id number] ####[facility] ([facility])[address], [place] [address]Pyhrwsqude (Bld) [Mass/Vol]12.1 g/dLLow13.0-17.0UnCleveland Clinic Fairview HospitalComment on above:Performed By: #### [id number] ####[facility] ([facility])[address], [place] [address]AKG (RBC) [Entitic mass] 32.3 ysMrfvvf85.0-33.0UnCleveland Clinic Fairview HospitalComment on above: Performed By: #### [id number] ####[facility] ([facility])[address] [facility] [place], [place] [address]BMZ (RBC) [Entitic vol]90.7 aFVvfmoz94.0-98.0UnCleveland Clinic Fairview HospitalComment on above:Performed By: #### [id number] ####[facility] ([facility])[address] [place], [place] [address]FMSNEDJYO (10*3/UL) IN BLOOD AUTOMATED CLGUM431 10*3/zENelvdv983-724ZlgpxnlvepCleveland Clinic Fairview Hospital Comment on above:Performed By: #### [id number] ####[facility] ([facility])[address] [place]ha[place], [place] [address]YIA (Bld) [#/Vol]3.75 10*6/uLLow4.20-5.70UnCleveland Clinic Fairview HospitalComment on above:Performed By: #### [id number] ####[facility] ([facility])[address] [place], [place] [address]BSO (Bld) [#/Vol]7.50 10*3/uLNormal4.00-10.60UnCleveland Clinic Fairview HospitalComment on above: Performed By: #### [id number] ####[facility] ([facility])[address] [place], [place] [address]PEUFTOSXuv 38-04-6295XWZRKGTY (UG/DL) IN SER/PLAS11.2 ug/dL Normal6-23UnCleveland Clinic Fairview HospitalComment on above:Performed By: #### [id number] ####[facility] ([facility])[address] [place] [address] OSMOLALITYon 37-28-8914SXUYHBHGLU ELLKAPZH437 mOsm/fbHlehpn873-337AamfzhgbyjCleveland Clinic Fairview HospitalComment on above:Result Comment: Test Performed by [employer] [address] [place] [address] - Released 04/20/2025 19:48Performed By: #### [id number] ####[facility] [id number] [place] [address]bw 55-66-933706Rgg patient is Moderately Stable - Low risk of patient condition declining or worsening The patient's goals for the shift include Neck/Chest pain The clinical goals for the shift include stable vital signsNormalUniMercer County Community HospitalANAon 11-08-5600JTN TITER<1:40Normal<=1:40UnCleveland Clinic Fairview HospitalComment on above:Result Comment: Test performed using [employer] IFA COLLIN Hep-2 Test, a pre-standardized assay designed forthe qualitative and semi-quantitative detection of antinuclear antibodies.Performed By: #### [id number] ####[facility] ([facility])[address] [place], [place] [address]ILTPsw 40-43-8986BUCQOajeamPurckqalcnMercer County Community HospitalB-TYPE NATRIURETIC PEPTIDEon 01-98-9113Efqiqlnntpz peptide B (Bld) [Mass/Vol]254 pg/mLHigh0-100 [facility] HospitalComment on above:Performed By: #### [id number] ####[facility] ([facility])[address] [place], [place] [address]WIJH FLUID CELL DIFFERENTIALon 75-59-2903WKUFVMKNP TOTAL PER COUNTED LEUKOCYTES IN BODY FLUID BY MANUAL COUNTNormalUniMercer County Community HospitalComment on above:Order Comment: Differential performed on cytospinPerformed By: #### [id number] ####[facility] ([facility])[address] [place], [place] [address]DCBAB COUNTED TOTAL (#) IN BODY JQJBE227FukeshTvkdzlonzmMercer County Community HospitalComment on above:Order Comment: Differential performed on cytospinPerformed By: #### [id number] ####[facility] ([facility])[address] [place], [place] [address]GKQJKTRJLKF TOTAL PER COUNTED LEUKOCYTES IN BODY FLUID BY MANUAL COUNTNormalUniMercer County Community HospitalComment on above:Order Comment: Differential performed on cytospin Performed By: #### [id number] ####[facility] ([facility])[address] [place], [place] [address]ETUSUKEYSBT TOTAL PER COUNTED LEUKOCYTES IN BODY FLUID BY MANUAL LXCNZ1CrrlxnGbdmuzbfhhMercer County Community HospitalComgarden city hospital on above:Order Comment: Differential performed on cytospinPerformed By: #### [id number] ####[facility] ([facility])[address], [place] [address]SXZMSUJWGYH CELLS TOTAL PER COUNTED LEUKOCYTES IN BODY FLUID BY MANUAL IBBW8PxlonoEqtqsqbfyfMemorial Health System Selby General HospitalComgarden city hospital on above:Order Comment: Differential performed on cytospin Performed By: #### [id number] ####[facility] ([facility])[address], [place] [address]UGNPIBEZT+MACROPHAGES TOTAL PER COUNTED LEUKOCYTES IN BODY FLUID BY MANUALNormalUniversMemorial Health System Selby General HospitalComgarden city hospital on above:Order Comment: Differential performed on cytospinPerformed By: #### [id number] ####[facility] ([facility])[address], [place] [address]PXKURTUCHBQ TOTAL PER COUNTED LEUKOCYTES IN BODY FLUID BY MANUAL DTGYF52MnwbkuZuwzdjwmfsMercer County Community HospitalComgarden city hospital on above:Order Comment: Differential performed on cytospin Performed By: #### [id number] ####[facility] ([facility])[address], [place] [address]LKRSO CELLS BODY FLUID (MANUAL)NormalUnCleveland Clinic Fairview HospitalComgarden city hospital on above:Order Comment: Differential performed on cytospin Performed By: #### [id number] ####[facility] ([facility])[address], [place] [address]YBHV FLUID CULTUREon 71-35-5304Fenebtei identified Cx Nom (Unsp spec)No growth at 5 daysNormalUniMercer County Community HospitalComgarden city hospital on above:Performed By: #### [id number] ####[facility] ([facility])[address], [place] [address]KAYM STAIN RESULTNormalUniversMemorial Health System [facility] Comment on above:Result Comment: No polymorphonuclear leukocytes seenNo organisms seenPerformed By: #### [id number] ####[facility] ([facility])[address], [place] [address]L-[id number] PROTEINon 04-19-2025 REACTIVE PROTEIN (MG/L) IN SER/FOMF135.7 mg/LHigh<=5.0UnCleveland Clinic Fairview HospitalComment on above:Result Comment: Testing performed using a new methodology, turbidimetry. Normal ranges have been updated. Old normal range was <8 mg/L. Performed By: #### [id number] ####[facility] ([facility])[address] [place] [address]WQHrk 28-71-5420Qxtqnofxuvy distribution width (RBC) [Ratio] 13.8 %Dhkixw77.5-15.0UnCleveland Clinic Fairview HospitalComment on above: Performed By: #### [id number] ####[facility] ([facility])[address] [place] [address]HKMZAKYJGPC MEAN CORPUSCULAR HEMOGLOBIN CONCENTRATION (G/DL) BY FQZKHSRJO53.3 g/oPQpot09.0-35.0UnCleveland Clinic Fairview HospitalComment on above:Performed By: #### [id number] ####[facility] ([facility])[address] [place] [place] [address]Erkygmjjva (Bld) [Volume fraction]36.8 %Low39.0-50.0 [facility] Memorial HospitalComment on above:Performed By: #### [id number] ####[facility] ([facility])[address] [place] [address]Femltiafou (Bld) [Mass/Vol]13.0 g/oDCjmgvn05.0-17.0UnCleveland Clinic Fairview HospitalComment on above:Performed By: #### [id number] ####[facility] ([facility])[address] [place] [address]EKS (RBC) [Entitic mass]32.3 vkViwsli70.0-33.0UnCleveland Clinic Fairview HospitalComment on above:Performed By: #### [id number] ####[facility] ([facility])[address] [place] [address]FAV (RBC) [Entitic vol] 91.5 mNEjgwki21.0-98.0UnCleveland Clinic Fairview HospitalComment on above: Performed By: #### [id number] ####[facility] ([facility])[address] [address]LEFJMGKAN (10*3/UL) IN BLOOD AUTOMATED [id number] 10*3/uLNormal 150-400UnCleveland Clinic Fairview HospitalComment on above:Performed By: #### [id number] ####[facility] ([facility])[address] [place] [address]HOO (Bld) [#/Vol]4.02 10*6/uLLow4.20-5.70UnCleveland Clinic Fairview HospitalComment on above:Performed By: #### [id number] ####[facility] ([facility])[address] [place] [address]ZTW (Bld) [#/Vol]10.71 10*3/uLHigh4.00-10.60UnCleveland Clinic Fairview HospitalComment on above:Performed By: #### [id number] ####[facility] ([facility])[address] [place] [address]NYJCTHWUHZKOP METABOLIC PANELon 85-91-6920Igvhaqn [Mass/Vol]3.8 g/dLNormal3.5-5.7UnCleveland Clinic Fairview HospitalComment on above:Performed By: #### [id number] ####[facility] ([facility])[address] [place] [address]ARH [Catalytic activity/Vol]51 U/L Glaaxx71-354SsrlcwxsbkCleveland Clinic Fairview HospitalComment on above:Performed By: #### [id number] ####[facility] ([facility])[address] [place] [address]QOK [Catalytic activity/Vol]27 U/LNormal7-52UnCleveland Clinic Fairview Hospital Comment on above:Performed By: #### [id number] ####[facility] ([facility])[address] [place] [address]Pxufw gap [Moles/Vol]12 mmol/LNormal7-20UnCleveland Clinic Fairview HospitalComment on above:Performed By: #### [id number] ####[facility] ([facility])[address] [address]DNU [Catalytic activity/Vol]22 U/OZjcqly32-64MfdamhofznCleveland Clinic Fairview HospitalComment on above:Performed By: #### [id number] ####[facility] ([facility])[address] [place] [address]Bhjiivyuh [Mass/Vol]0.7 mg/dLNormal0.3-1.0UnCleveland Clinic Fairview HospitalComment on above:Performed By: #### [id number] ####[facility] ([facility])[address] [place] [address]Fofogej [Mass/Vol]9.5 mg/dLNormal 8.6-10.3UnCleveland Clinic Fairview HospitalComment on above:Performed By: #### [id number] ####[facility] ([facility])[address] [place] [address]Olexiapt [Moles/Vol]91 mmol/BUfp53-709HxixnsfxcoCleveland Clinic Fairview HospitalComment on above:Performed By: #### [id number] ####[facility] ([facility])[address] [place] [address]XC8 [Moles/Vol]28 mmol/QWdulyj62-22UjwpbdfumlCleveland Clinic Fairview HospitalComment on above:Performed By: #### [id number] ####[facility] ([facility])[address] [place] [address]Pbbfhujkok [Mass/Vol]0.98 mg/dLNormal 0.70-1.30UnCleveland Clinic Fairview HospitalComment on above:Performed By: #### [id number] ####[facility] ([facility])[address], [place] [address]WFHZYIHJKQ FILTRATION RATE ML/MIN/1.73 SQ M.JCPAYVJIY12.5 mL/min/1.73m*2Normal>60.0 [facility] HospitalComment on above:Result Comment: The [facility]???s estimated glomerular filtration rate (eG FR) will no longer include consideration of race [...] potential consequences that do not disproportionately affect anyone group of individuals. Performed By: #### [id number] ####[facility] ([facility])[address] [place], [place] [address]Zdskvet [Mass/Vol]109 mg/eSRiyu94-789NbhecfjksqCleveland Clinic Fairview HospitalComment on above:Performed By: #### [id number] ####[facility] ([facility])[address], [place] [address]Vregapoij [Moles/Vol]5.0 mmol/LNormal 3.5-5.1UnCleveland Clinic Fairview HospitalComment on above:Performed By: #### [id number] ####[facility] ([facility])[address], [place] [address]Wcnaass [Mass/Vol]6.8 g/dLNormal6.0-8.3UnCleveland Clinic Fairview HospitalComment on above:Performed By: #### [id number] ####[facility] ([facility])[address], [place] [address]Kylvam [Moles/Vol]126 mmol/TXeu807-079VhffobbsloCleveland Clinic Fairview HospitalComment on above:Performed By: #### [id number] ####[facility] ([facility])[address], [place] [address]Djyc nitrogen [Mass/Vol]17 mg/dLNormal 7-25UnCleveland Clinic Fairview HospitalComment on above:Performed By: #### [id number] ####[facility] ([facility])[address], [place] [address]XQOM NITROGEN/CREATININE (MASS RATIO) IN SER/PLAS17.3NormalUniversMemorial Health System Selby General HospitalComment on above:Performed By: #### [id number] ####[facility] ([facility])[address] [place], [place] [address]UFLOQKCxz 78-45-4898UJAURDXOxnkoiClermont County HospitalHIGH SENSITIVITY TROPONIN Ion 24-90-0319NW TROPONIN I (NG/L)7 ng/LNormal<20UnCleveland Clinic Fairview HospitalComment on above:Performed By: #### [id number] ####[facility] ([facility])[address] [place], [place] [address]BXon 63-17-3471MXSgxuofYzxqtxlfvf of [facility] CenterHP NormalUnCleveland Clinic Fairview HospitalHPNormalUniversMemorial Health System Selby General HospitalNON-IMMIGRATION SERVICES OFFICER CYTOLOGY - CELLULAR EXAMon 98-76-0707HED AP CASE REPORTNormal [facility] Memorial HospitalComment on above:Result Comment: Non- gynecologic Cytology Case: [id number] Provider: Venu Mancilla MD Collected: 04/19/2025 1523Ordering Location[facility] Received: 04/19/2025 1533Pathologist: ADAMA Jonaspecimen: Pericardial FluidPerformed By: #### [id number] ####[facility] ([facility])[address] [place], [place] [address]WFE AP CLINICAL INFORMATIONPericardial effusionNormalUniMercer County Community HospitalComment on above:Performed By: #### [id number] ####[facility] ([facility])[address] [place], [place] [address]RSI AP GROSS UWXTFCSFHTW799 mL opaque, red fluidNormalUniversMemorial Health System Selby General HospitalComment on above:Performed By: #### [id number] ####[facility] ([facility])[address] [place] [address] LAB AP REPORT FINAL DIAGNOSIS NARRATIVENoalUKindred Hospital Lima Comment on above:Result Comment: A. Pericardial fluid: - Negative for malignancy. - Marked acute inflammation. at 1746 EDTPerformed By: #### [id number] ####[facility] ([facility])[address] [place] [address]JBITLAMGZWgk 97-06-0242HLTABIZBHP FEOOKNLH192 mOsm/toRms053-514MjvfppmjspCleveland Clinic Fairview HospitalComment on above:Result Comment: Test Performed by [facility] [employer] [address] [place] [address] - Haqaqnih 04/20/2025 15:14Performed By: #### [id number] ####[facility] [address] [place] [address]AJGMUSCOH REVIEWon 00-54-1555VBMETFIDF REVIEWReviewed.NormalUnCleveland Clinic Fairview Hospital Comment on above:Result Comment: .Performed By: #### [id number] ####[facility] ([facility])[address] [place] [address]RHMOYREHOPPPC RATEon 90-07-4666BHHBQUCHLUMHQ RATE, KFCXYKZEQTS60 mm/hrNormal<20UnCleveland Clinic Fairview HospitalComment on above:Performed By: #### [id number] ####[facility] ([facility])[address] [place] [address]SUNEMV, URINE, RANDOMon 83-71-2061Hryzvf (U) [Moles/Vol]59 mmol/LNormalUnCleveland Clinic Fairview HospitalComment on above:Performed By: #### [id number] ####[facility] ([facility])[address] [place] [address] BASIC METABOLIC PANELon 83-93-9361Dcssf gap [Moles/Vol]13 mmol/LNormal7-20 [facility] HospitalComment on above:Performed By: #### [id number] ####[facility] ([facility])[address] [place] [address]Jnmicrr [Mass/Vol]10.4 mg/dLHigh8.6-10.3UnCleveland Clinic Fairview HospitalComment on above:Performed By: #### [id number] ####[facility] ([facility])[address], [place] [address]Hbsevvjb [Moles/Vol]95 mmol/YSzu46-135XanbehfavjCleveland Clinic Fairview HospitalComment on above:Performed By: #### [id number] ####[facility] ([facility])[address] [place] [address]DD2 [Moles/Vol]28 mmol/MZiobuv92-78 [facility] HospitalComment on above:Performed By: #### [id number] ####[facility] ([facility])[address] [place], [place] [address]Hphcnwmiqa [Mass/Vol]0.95 mg/dLNormal0.70-1.30UnCleveland Clinic Fairview HospitalComment on above:Performed By: #### [id number] ####[facility] ([facility])[address] [place], [place] [address]Dvntprthv By: #### [id number] ####[facility] ([facility])[address] [place], [place] [address]KLONNWYENY FILTRATION RATE ML/MIN/1.73 SQ M.QVQEEDGIU45.6 mL/min/1.73m*2Normal>60.0UnCleveland Clinic Fairview Hospital Comment on above:Result Comment: The [facility]???s estimated glomerular filtration rate (eGFR) will no longer include consideration of race in its calculation. The National Kidney Foundation???s eGFR Task Force developed new recommendations for the estimation of the glomerular filtration ra te in the [place] They recommend immediate implementation of the new equation refit without the race variable in all laboratories because the calculation does not include race. In addition to not including race in the calculation and reporting, it included diversity in its development, and has acceptable performance characteristics and potential consequences that do not disproportionately affect anyone group of individuals.Performed By: #### [id number] ####[facility] ([facility])[address] [facility] [place] [facility] [place] [address]Pnmxiyiux By: #### [id number] ####[facility] ([facility])[address] [place] [address] Glucose [Mass/Vol]91 mg/mMFlxnmu61-753JqnofuolfeCleveland Clinic Fairview HospitalComment on above:Performed By: #### [id number] ####[facility] ([facility])[address] [place] [address]Vbqlccfkr [Moles/Vol]4.1 mmol/LNormal3.5-5.1UnCleveland Clinic Fairview HospitalComment on above:Performed By: #### [id number] ####[facility] ([facility])[address] [place] [address]Fiydny [Moles/Vol]132 mmol/LLow 136-145UnCleveland Clinic Fairview HospitalComment on above:Performed By: #### [id number] ####[facility] ([facility])[address] [place] [address]Sfct nitrogen [Mass/Vol]15 mg/dLNormal7-25UnCleveland Clinic Fairview HospitalComment on above:Performed By: #### [id number] ####[facility] ([facility])[address] [place] [address]RWKP NITROGEN/CREATININE (MASS RATIO) IN SER/PLAS15.8Normal [facility] HospitalComment on above:Performed By: #### [id number] ####[facility] ([facility])[address] [place] [address]RWTwa 03-26-2025 Erythrocyte distribution width (RBC) [Ratio]15.2 %High11.5-15.0UnCleveland Clinic Fairview HospitalComment on above:Performed By: #### [id number] ####[facility] ([facility])[address] [place] [address]RDNDGAUGOWU MEAN CORPUSCULAR HEMOGLOBIN CONCENTRATION (G/DL) BY KYYCAGFFQ72.6 g/yVDgebti69.0-35.0 [facility] HospitalComment on above:Performed By: #### [id number] ####[facility] ([facility])[address] [place] [address]Fjvqxcfavx (Bld) [Volume fraction]40.2 %Wzojkv67.0-50.0UnCleveland Clinic Fairview Hospital Comment on above:Performed By: #### [id number] ####[facility] ([facility])[address] [place] [address]Fnprycdysm (Bld) [Mass/Vol]13.9 g/vFSgnvpb98.0-17.0 [facility] HospitalComment on above:Performed By: #### [id number] ####[facility] ([facility])[address] [place] [address]WOD (RBC) [Entitic mass]32.0 qrEdcust00.0-33.0UnCleveland Clinic Fairview HospitalComment on above:Performed By: #### [id number] ####[facility] ([facility])[address] [place] [address]CUL (RBC) [Entitic vol]92.6 lVQssyff23.0-98.0UnCleveland Clinic Fairview HospitalComment on above:Performed By: #### [id number] ####[facility] ([facility])[address] [place] [address]AXANRCFOV (10*3/UL) IN BLOOD AUTOMATED [id number] 10*3/iULcvplr995-369QnumojgpyzCleveland Clinic Fairview Hospital Comment on above:Performed By: #### [id number] ####[facility] ([facility])[address] [place] [address]EHH (Bld) [#/Vol]4.34 10*6/uLNormal4.20-5.70 [facility] HospitalComment on above:Performed By: #### [id number] ####[facility] ([facility])[address] [place] [address]SRE (Bld) [#/Vol]7.48 10*3/uLNormal4.00-10.60UnCleveland Clinic Fairview HospitalComment on above:Performed By: #### [id number] ####[facility] ([facility])[address] [place] [address]FDL CHEST W IV CONTRASTon 88-85-9847DOD CHEST W IV CONTRAST Invalid Interpretation CodeUnCleveland Clinic Fairview HospitalComment on above: Order Comment: 45-day imaging - Post-LAAO device - venous & gaited with 3D reconstrution to assess left atrial appendageLabon 24-88-3756BthNxyzqvKmzpqwoocj of [facility] RockOrders Onlyon 93-07-3843Oqqmmu OnlyNormalUniversity of [facility] Round RockFollow-Upon 35-89-9941Qggzuw-UpNormalUniversity of [facility] RockOrders Onlyon 17-37-6377Imjbgt OnlyNormalUniversity of [facility]36on 39-37-[address]PtdfmhPapnlxsueo of [facility] Telephoneon 45-65-2402LtzmxdezvGykarnWngzrwwnmf of [facility]30on 20-38-891280GjqvtsCmvuvqjkmw [facility] HospitalBASIC METABOLIC PANELon 55-22-3885Zvgzn gap [Moles/Vol]12 mmol/LNormal7-20UnCleveland Clinic Fairview HospitalComment on above:Performed By: #### [id number] ####[facility] ([facility])[address], [place] [address]Mbxkxrp [Mass/Vol]7.5 mg/dLLow8.6-10.3 [facility] HospitalComment on above:Performed By: #### [id number] ####[facility] ([facility])[address], [place] [address]Qotsfzly [Moles/Vol]102 mmol/GMjapea30-491BnimuqfihtCleveland Clinic Fairview HospitalComment on above:Performed By: #### [id number] ####[facility] ([facility])[address], [place] [address]RT6 [Moles/Vol]25 mmol/UWqvwet49-91LmootvgicwCleveland Clinic Fairview HospitalComment on above:Performed By: #### [id number] ####[facility] ([facility])[address], [place] [address]Ntzarcyhqv [Mass/Vol]0.81 mg/dLNormal 0.70-1.30UnCleveland Clinic Fairview HospitalComment on above:Performed By: #### [id number] ####[facility] ([facility])[address], [place] [address]RELECTJKUE FILTRATION RATE ML/MIN/1.73 SQ M.AXIEZSEWI50.4 mL/min/1.73m*2Normal>60.0 [facility] HospitalComment on above:Result Comment: The [facility]???s estimated glomerular filtration rate (eG FR) will no longer include consideration of race [...] potential consequences that do not disproportionately affect anyone group of individuals. Performed By: #### [id number] ####[facility] ([facility])[address] [place] [address]Yikmjkv [Mass/Vol]96 mg/wUXzappz12-623TasyikvhbpCleveland Clinic Fairview HospitalComment on above:Performed By: #### [id number] ####[facility] ([facility])[address], [place] [address]Mgvhvprgo [Moles/Vol]3.0 mmol/LLow 3.5-5.1UnCleveland Clinic Fairview HospitalComment on above:Performed By: #### [id number] ####[facility] ([facility])[address], [place] [address]Hegjer [Moles/Vol]136 mmol/TNyamxm519-944HweyizmcufCleveland Clinic Fairview HospitalComment on above:Performed By: #### [id number] ####[facility] ([facility])[address] [place], [place] [address]Hhao nitrogen [Mass/Vol]12 mg/dLNormal7-25UnCleveland Clinic Fairview HospitalComment on above:Performed By: #### [id number] ####[facility] ([facility])[address], [place] [address]AVIB NITROGEN/CREATININE (MASS RATIO) IN SER/PLAS14.8NormalUniversity of Dubose Medical CenterComment on above: Performed By: #### [id number] ####[facility] ([facility])[address] [address]AVTsi 31-62-3969Ppmyjgymcsh distribution width (RBC) [Ratio]14.3 % Zzkhsq42.5-15.0UnCleveland Clinic Fairview HospitalComment on above:Performed By: #### [id number] ####[facility] ([facility])[address] [address] ERYTHROCYTE MEAN CORPUSCULAR HEMOGLOBIN CONCENTRATION (G/DL) BY UOYMZLPQJ80.2 g/zLMgnwul30.0-35.0UnCleveland Clinic Fairview HospitalComment on above:Performed By: #### [id number] ####[facility] ([facility])[address] [place] [address]Qblrkfjjfp (Bld) [Volume fraction]33.9 %Low39.0-50.0UnCleveland Clinic Fairview HospitalComment on above:Performed By: #### [id number] ####[facility] ([facility])[address] [place] [address]Ytabctpwdd (Bld) [Mass/Vol]11.6 g/dL Low13.0-17.0UnCleveland Clinic Fairview HospitalComment on above:Performed By: #### [id number] ####[facility] ([facility])[address], [place] [address]HPN (RBC) [Entitic mass]32.0 nkJtornr50.0-33.0UnCleveland Clinic Fairview Hospital Comment on above:Performed By: #### [id number] ####[facility] ([facility])[address] [place] [address]MAK (RBC) [Entitic vol]93.4 jEBoircz83.0-98.0 [facility] HospitalComment on above:Performed By: #### [id number] ####[facility] ([facility])[address] [place] [address]HGDVRCVZH (10*3/UL) IN BLOOD AUTOMATED OBPWQ006 10*3/nMVoztxa518-610FgknfjjbasCleveland Clinic Fairview HospitalComment on above:Performed By: #### [id number] ####[facility] ([facility])[address] [place], [place] [address]PKI (Bld) [#/Vol]3.63 10*6/uLLow 4.20-5.70UnCleveland Clinic Fairview HospitalComment on above:Performed By: #### [id number] ####[facility] ([facility])[address] [place], [place] [address]HKS (Bld) [#/Vol]6.13 10*3/uLNormal4.00-10.60UnCleveland Clinic Fairview HospitalComment on above:Performed By: #### [id number] ####[facility] ([facility])[address] [place], [place] [address]DXam 36-61-2368FPArreccSdxzanepnb of [facility] Orders Onlyon 35-87-1913Dgslub OnlyNormalUniversMemorial Health System [facility]by General Hospital POTASSIUMon 81-54-7259Wzeyqnsmw [Moles/Vol]3.4 mmol/LLow3.5-5.1[facility] HospitalComment on above:Performed By: #### [id number] ####[facility] ([facility])[address], [place] [address]38sm 49-84-478735ZzfczuClermont County Hospital30NormalUniversity [facility] ANESon 99-61-5054RVNXIobahtUlhhrdwjsv of [facility] CenterHPon 80-29-1421OT St. Rita's HospitalNURSNOTEon 73-81-4408EGIQMZNGCtfrfbClermont County HospitalNURSNOTECHG wipes and betadine nasal swabs completed.St. Rita's HospitalTYPE AND SCREENon 02-06-2025 AB SCREENNegativeNormalUniversMemorial Health System Selby General HospitalComment on above: Performed By: #### [id number] ####[facility],ABO group Nom (Bld)ANoClermont County HospitalComment on above:Performed By: #### [id number] ####[facility],RH TYPE IN BLOODPositiveNormalUniversMemorial Health System Selby General HospitalComment on above:Performed By: #### [id number] ####[facility],Orders Only on 03-63-0933Pjyhcn OnlyNormalUniversMemorial Health System Selby General HospitalALL BASIC METABOLIC PANELon 53-97-3998Bazme gap [Moles/Vol]16.6 mmol/LNOMS Healthcare Calcium [Mass/Vol]9.2 mg/dL8.5 - 10.1 mg/dLNOND HealthcareChloride [Moles/Vol] 101 mmol/L98 - 107 mmol/LNOMS HealthcareCO2 [Moles/Vol]24.7 mmol/L21.0 - 32.0 mmol/LNOMS HealthcareCreatinine [Mass/Vol]0.9 mg/dL0.70 - 1.30 mg/dLNOMS HealthcareGFR/1.73 sq M.predicted CKD-EPI (S/P/Bld) [Vol rate/Area]>60>=60 mL/min/1.73m 2NOMS HealthcareGlucose [Mass/Vol]90 mg/dL74 - 106 mg/dLNOND HealthcareInterpretation and review of laboratory resultsAbnormalNOMS Healthcare Potassium [Moles/Vol]3.3 mmol/LLow3.5 - 5.1 mmol/LNOMS HealthcareSodium [Moles/Vol]139 mmol/L136 - 145 mmol/LNOMS HealthcareTBH EGFR-NON AF GAMBIAN>60 >=60 mL/min/1.73m 2NOMS HealthcareUrea nitrogen [Mass/Vol]13 mg/dL7.0 - 18.0 mg/dLNOND HealthcareUrea nitrogen/Creatinine [Mass ratio]14.4 mg/mgNOND HealthcareCLINISYNCNOMS HealthcarePrep for Procedureon [id number] for ProcedureNormalUniversparkview health of [facility] Round RockOrders Onlyon [id number] OnlyNormalUniversity of [facility] Round RockOrders Onlyon [id number] Only NormalUniversity Trumbull Memorial HospitalCA ECHO DOPPLER COMPLETEon 12-05-[address] [address] Cardiology Report Signed Patient: KRISTY DOHERTY MR#: [id number] : 1955 Acct:[id number] Age/Sex: 69 / M ADM Date: 12/05/24 Loc: CARD Attending Dr: BORIS WILLIAM Ordering Physician: BORIS WILLIAM Date of Service: 12/05/24 Procedure(s): CA echo doppler complete Accession Number(s): [id number] cc: BORIS WILLIAM; Rudy King M.D. Patient Name: KRISTY DOHERTY MR#: [id number] : 1955 Exam Date: 12/05/2024 Ordering Doctor: DR BORIS WILILAM M.D. ECHOCARDIOGRAM REPORT PROCEDURE: CA ECHO DOPPLER [...] 41.53 ml, 41.53 ml Dictated by: Boris William, (more content not included)...TBHRadiology, Radiologist, - 12/05/2024 [place] [address] Cardiology Report Signed Patient: KRISTY DOHERTY MR#: [id number] : 1955 Acct:[id number] Age/Sex: 69 / M ADM Date: 12/05/24 Loc: CARD Attending Dr: BORIS WILLIAM Ordering Physician: BORIS WILLIAM Date of Service: 12/05/24 Procedure(s): CA echo doppler complete Accession Number(s): [id number] cc: BORIS WILLIAM; Rudy King M.D. Patient Name: KRISTY DOHERTY MR#: [id number] : 1955 Exam Date: 12/05/2024 Ordering Doctor: [...] BORIS WILLIAM Signed By: 12/05/24 1545 DD/ 154 TD/TT: Aoc Director Combat Operations Officer: BRIGETTE HealthcareRadiology Study observation (narrative)[facility] CenterCA ECHO DOPPLER COMPLETEOrdered By: Radiologist Radiology on 35-57-6602[facility] Work Phone: aNESon [phone] [facility] Memorial HospitalBASIC METABOLIC PANELon 26-82-9080Abeif gap [Moles/Vol]19 mmol/L Normal7-20UnCleveland Clinic Fairview HospitalComment on above:Performed By: #### LAB15 ####[facility] (BEAKER)[address] [place], [place] [address]Zeyxlxd [Mass/Vol]8.8 mg/dLNormal8.6-10.3UnCleveland Clinic Fairview HospitalComment on above:Performed By: #### LAB15 ####[facility] ([facility]ER)[address] [place], [place] [address]Kitzjnfr [Moles/Vol]101 mmol/AGxyfqa55-773EcwuivmqazCleveland Clinic Fairview HospitalComment on above:Performed By: #### LAB15 ####[facility] ([facility])[address] [place], [place] [address]QA2 [Moles/Vol]24 mmol/LNormal 21-31UnCleveland Clinic Fairview HospitalComment on above:Performed By: #### LAB15 ####[facility] ([facility])[address], [place] [address]Jjpbtwhdig [Mass/Vol]0.93 mg/dLNormal0.70-1.30UnCleveland Clinic Fairview HospitalComment on above:Performed By: #### LAB15 ####[facility] ([facility])[address], [place] [address]TJEDFVBHZK FILTRATION RATE ML/MIN/1.73 SQ M.QBVTBFSRN64.9 mL/min/1.73m*2Normal>60.0UnCleveland Clinic Fairview HospitalComment on above: Result Comment: [facility]???s estimated glomerular filtration rate (eGFR) will [...] potential consequences that do not disproportionately affect anyone group of individuals.Performed By: #### LAB15 ####[facility] ([facility])[address] [place], [place] [address]Esonnak [Mass/Vol]108 mg/sIWxfd96-075BgpmtsutswCleveland Clinic Fairview HospitalComment on above:Performed By: #### LAB15 ####[facility] ([facility])[address] [place], [place] [address]Gtxtttgbg [Moles/Vol]4.5 mmol/L Normal3.5-5.1UnCleveland Clinic Fairview HospitalComment on above:Performed By: #### LAB15 ####[facility] ([facility])[address] [place] [address] Sodium [Moles/Vol]139 mmol/NYwaghp439-727XgnoacdyseCleveland Clinic Fairview Hospital Comment on above:Performed By: #### LAB15 ####[facility] ([facility])[address] [facility], [place] [address]Axda nitrogen [Mass/Vol]16 mg/dLNormal7-25 [facility] HospitalComment on above:Performed By: #### LAB15 ####[facility] ([facility])[address] [facility], [place] [address]VGFD NITROGEN/CREATININE (MASS RATIO) IN SER/PLAS17.2NormalUnCleveland Clinic Fairview HospitalComment on above:Performed By: #### LAB15 ####[facility] ([facility])[address] [place] [address]TTTyc 05-99-6330Ivkitelauod distribution width (RBC) [Ratio]13.9 %Fcqwlf29.5-15.0UnCleveland Clinic Fairview HospitalComment on above:Performed By: #### [id number] ####[facility] ([facility])[address] [address]ZSQQJZREQMV MEAN CORPUSCULAR HEMOGLOBIN CONCENTRATION (G/DL) BY RDMYMSQXV52.2 g/jGLwfpqw96.0-35.0UnCleveland Clinic Fairview HospitalComment on above:Performed By: #### [id number] ####[facility] ([facility])[address] [place] [address]Ecqmtzcafa (Bld) [Volume fraction]40.9 %Ruhjjh20.0-50.0UnCleveland Clinic Fairview HospitalComment on above:Performed By: #### [id number] ####[facility] ([facility])[address] [place] [address]Mzueczkcpa (Bld) [Mass/Vol]14.0 g/zTViuhnx23.0-17.0UnCleveland Clinic Fairview HospitalComment on above:Performed By: #### [id number] ####[facility] ([facility])[address] [place] [address]KNF (RBC) [Entitic mass] 31.5 pcEufkmf63.0-33.0UnCleveland Clinic Fairview HospitalComment on above: Performed By: #### [id number] ####[facility] ([facility])[address] [place] [address]JST (RBC) [Entitic vol]92.1 bHFbfhdg95.0-98.0UnCleveland Clinic Fairview HospitalComment on above:Performed By: #### [id number] ####[facility] ([facility])[address] [place] [address]CIVJWLWKQ (10*3/UL) IN BLOOD AUTOMATED UVFOL008 10*3/zCOcwvou814-880OehqfdwaorCleveland Clinic Fairview Hospital Comment on above:Performed By: #### [id number] ####[facility] ([facility])[address] [facility] [place] [address]FYS (Bld) [#/Vol]4.44 10*6/uLNormal4.20-5.70 [facility] HospitalComment on above:Performed By: #### [id number] ####[facility] ([facility])[address] [facility] [place] [address]FDM (Bld) [#/Vol]6.95 10*3/uLNormal4.00-10.60UnCleveland Clinic Fairview HospitalComment on above:Performed By: #### [id number] ####[facility] ([facility])[address] [facility] [place] [place] [address]FKcs 84-36-0665BHA&P reviewed. The patient was examined and there are no changes to the H&P.[facility] NURSNOTEon 33-72-7652NLTSDVRNDzmgzeBfvjpscevr of [place] Medical CenterNURSNOTE Bedside swallow study completed and passed.NormalMemorial Health System Marietta Memorial HospitalTelephoneon 48-58-3559UyfkwbaiwRdqphyTldrqicuol of [facility] [facility] Orders Onlyon 66-75-6403Eolrri OnlyNormalUniversMemorial Health System Selby General HospitalHPon 21-04-1335FFPidfsxNqmncgomyl of [place] [facility] Fuumoc99fg 35-18-982553Fkbrjtemr lab results from 08/16/2024: MD Zaida Currie MA His blood test was okay. Continue same and follow-up as planned. Patient made aware.NormalMemorial Health System Marietta Memorial HospitalALL BASIC METABOLIC PANELon 40-07-8377Dwsar gap [Moles/Vol]13.5 mmol/LNOMS HealthcareCalcium [Mass/Vol]8.8 mg/dL8.5 - 10.1 mg/dLNOMS HealthcareChloride [Moles/Vol]101 mmol/L 98 - 107 mmol/LNOMS HealthcareCO2 [Moles/Vol]29.5 mmol/L21.0 - 32.0 mmol/LNOMS HealthcareCreatinine [Mass/Vol]1.3 mg/dL0.70 - 1.30 mg/dLNOChristian HospitalGFR/1.73 sq M.predicted CKD-EPI (S/P/Bld) [Vol rate/Area]>60>=60 mL/min/1.73m 2NOMS HealthcareGlucose [Mass/Vol]129 mg/oICskk80 - 106 mg/dLNOChristian Hospital Interpretation and review of laboratory resultsAbnormalNOMS HealthcarePotassium [Moles/Vol]4 mmol/L3.5 - 5.1 mmol/LNOMS HealthcareSodium [Moles/Vol]140 mmol/L 136 - 145 mmol/LNOMS HealthcareTBH EGFR-NON AF FDENOVWT07Bkx>=60 mL/min/1.73m 2 NOMS HealthcareUrea nitrogen [Mass/Vol]18 mg/dL7.0 - 18.0 mg/dLNOChristian Hospital Urea nitrogen/Creatinine [Mass ratio]13.8 mg/mgNOChristian HospitalCLINISYNCNCOMANCHE COUNTY [facility] HealthcareANA Antinuclear Antibodieson 69-37-8089Hflsaidkzch Abs, IFAPositive Critically abnormal.OhiohealthComment on above:Result Comment: Negative <1:80 Borderline 1:80 Positive >1:80Performed By: #### COLLIN #### [facility] , #### PTH, CRP, CBC, ESR, URIC, CMP #### [facility] [address] [place] [address] USAHomogeneous Pattern1:80Normal.OhiohealthComment on above:Result Comment: ICAP nomenclature: AC-1Performed By: #### COLLIN #### [facility] , #### PTH, CRP, CBC, ESR, URIC, CMP #### [facility] [address] [place] [id number] USANote 1Normal.OhiohealthComment on above:Result Comment: For more information about Hep-2 cell [...] titers Nucleosomes, Histones Drug-induced SLE Speckled Sm, CUSTOMER SALES SERVICE MANAGER, SCL-70, SLE,MCTD,PSS (diffuse form), SS-A/SS-B Sjogrens Nucleolar SCL-70, PM-1/SCL High titers Scleroderma, PM/DM Centromere Centromere PSS (limited form) w/Crest syndrome variable Nuclear Dot Sp100,j08-syinid Primary Biliary Cirrhosis Nuclear GP210, Primary Biliary Cirrhosis Membrane flor A,B,C Performed at: [facility] Lab[address] [id number] Assembler Bicycle: John Acosta PhD, Phone: [phone] PERFORMED BY: [place] [address] PATHOLOGIST [employer] ROMULO SERRA M.D.Performed By: #### COLLIN #### [facility] , #### PTH, CRP, CBC, ESR, URIC, CMP #### [facility] [address] [place] [address] USAC-Reactive Proteinon 14-03-0304S-Reactive Protein0.6 mg/dL High0.0-0.5FBrecksville VA / Crille HospitalComment on above:Result Comment: PERFORMED BY: [place] [address] PATHOLOGIST [employer] ROMULO SRERA M.D.Performed By: #### COLLIN #### [facility] , #### PTH, CRP, CBC, ESR, URIC, CMP #### [facility] [address] [place] [address] USAComplete Blood Count Auto Diffon 00-69-2830Ezozausbz (Bld) [#/Vol]0.1 10*3/uLNormal0.0-0.2FBrecksville VA / Crille HospitalComment on above:Performed By: #### COLLIN #### [facility] , #### PTH, CRP, CBC, ESR, URIC, CMP #### [facility] [address] [place] [address] USABasophils/100 WBC (Bld)1.1 %Normal.OhiohealthComment on above:Performed By: #### COLLIN #### [facility] , #### PTH, CRP, CBC, ESR, URIC, CMP #### [place] [address] USAEosinophils (Bld) [#/Vol]0.3 10*3/uLNormal0.0-0.45 OhiohealthComment on above:Performed By: #### COLLIN #### [facility] , #### PTH, CRP, CBC, ESR, URIC, CMP #### [place] [address] USAEosinophils/100 WBC (Bld)4.2 %Normal.OhiohealthComment on above:Performed By: #### COLLIN #### [facility] , #### PTH, CRP, CBC, ESR, URIC, CMP #### [place] [address] USAErythrocyte distribution width (RBC) [Ratio]16.3 %High 12.0-14.8OhiohealthComment on above:Performed By: #### COLLIN #### [facility] , #### PTH, CRP, CBC, ESR, URIC, CMP #### [place] [address] USAHematocrit (Bld) [Volume fraction]40.2 %Banicc26.8-50.0 OhiohealthComment on above:Performed By: #### COLLIN #### [facility] , #### PTH, CRP, CBC, ESR, URIC, CMP #### [place] [address] USAHemoglobin (Bld) [Mass/Vol]13.3 g/oWGntrpw09.0-17.0 OhiohealthComment on above:Performed By: #### COLLIN #### [facility] , #### PTH, CRP, CBC, ESR, URIC, CMP #### [place] [address] USALymphocytes (Bld) [#/Vol]2.5 10*3/uLNormal1.00-4.8 OhiohealthComment on above:Performed By: #### COLLIN #### [facility] , #### PTH, CRP, CBC, ESR, URIC, CMP #### [facility] [address] [place] [address] USALymphocytes/100 WBC (Bld)31.3 %Normal.OhiohealthComment on above:Performed By: #### COLLIN #### [facility] , #### PTH, CRP, CBC, ESR, URIC, CMP #### [facility] [address] [place] [address] USAH (RBC) [Entitic mass]29.4 ulAgawwg62.5-35.2FBrecksville VA / Crille HospitalComment on above:Performed By: #### COLLIN #### [facility] , #### PTH, CRP, CBC, ESR, URIC, CMP #### [facility] [address] [place] [address] USAMCV (RBC) [Entitic vol]88.7 oVAkdsoe46.5-101OhiohealthComment on above:Performed By: #### COLLIN #### [facility] , #### PTH, CRP, CBC, ESR, URIC, CMP #### [facility] [address] [place] [address] USAMean Corpuscular HGB Conc33.1 g/bBEelyxy57.5-35.6FBrecksville VA / Crille HospitalComment on above:Performed By: #### COLLIN #### [facility] , #### PTH, CRP, CBC, ESR, URIC, CMP #### [facility] [address] [place] [address] USAMonocytes (Bld) [#/Vol]1.0 10*3/uLHigh0.0-0.8OhiohealthComment on above:Performed By: #### COLLIN #### [facility] , #### PTH, CRP, CBC, ESR, URIC, CMP #### [place] [address] USAMonocytes/100 WBC (Bld)12.9 %Normal.OhiohealthComment on above:Performed By: #### COLLIN #### [facility] , #### PTH, CRP, CBC, ESR, URIC, CMP #### [place] [address] USANeutrophils (Bld) [#/Vol]4.1 10*3/uLNormal1.8-7.7FBrecksville VA / Crille HospitalComment on above:Performed By: #### COLLIN #### [facility] , #### PTH, CRP, CBC, ESR, URIC, CMP #### [place] [address] USANeutrophils/100 WBC (Bld)50.5 %Normal.OhiohealthComment on above:Performed By: #### COLLIN #### [facility] , #### PTH, CRP, CBC, ESR, URIC, CMP #### [facility] [address] [place] [address] USANRBC%0.0 /100{WBC}Normal0-0.5FBrecksville VA / Crille HospitalComment on above:Performed By: #### COLLIN #### [facility] , #### PTH, CRP, CBC, ESR, URIC, CMP #### [place] [address] USAPlatelet mean volume (Bld) [Entitic vol]8.7 fLNormal 6.6-10.1FBrecksville VA / Crille HospitalComment on above:Performed By: #### COLLIN #### [facility] , #### PTH, CRP, CBC, ESR, URIC, CMP #### [place] [address] USAPlatelets (Bld) [#/Vol]285 10*3/lMUipezo663-370JbgjlwxnwOhiohealthComment on above:Performed By: #### COLLIN #### [facility] , #### PTH, CRP, CBC, ESR, URIC, CMP #### [facility] [address] [place] [address] USARBC (Bld) [#/Vol]4.53 10*6/uLNormal3.90-5.60OhiohealthComment on above:Performed By: #### COLLIN #### [facility] , #### PTH, CRP, CBC, ESR, URIC, CMP #### [facility] [address] [place] [address] USAWBC (Bld) [#/Vol]8.0 10*3/uLNormal4.1-10.5FBrecksville VA / Crille HospitalComment on above:Performed By: #### COLLIN #### [facility] , #### PTH, CRP, CBC, ESR, URIC, CMP #### [facility] [address] [place] [address] USAComprehensive Metabolic Panelon 48-10-2148Nkgffdo [Mass/Vol]4.2 g/dLNormal3.5-5.7FBrecksville VA / Crille HospitalComment on above:Performed By: #### COLLIN #### [facility] , #### PTH, CRP, CBC, ESR, URIC, CMP #### [facility] [address] [place] [address] USAAlbumin/Globulin [Mass ratio]1.3 {ratio}NormalOhiohealthComment on above:Performed By: #### COLLIN #### [facility] , #### PTH, CRP, CBC, ESR, URIC, CMP #### [facility] [address] [place] [address] USAALP [Catalytic activity/Vol]69 U/UDkbsqi29-000ZrwnzbrnmOhiohealthComment on above:Performed By: #### COLLIN #### [facility] , #### PTH, CRP, CBC, ESR, URIC, CMP #### [facility] [address] [place] [address] USAALT [Catalytic activity/Vol]15 U/LNormal7-52OhiohealthComment on above:Performed By: #### COLLIN #### [facility] , #### PTH, CRP, CBC, ESR, URIC, CMP #### [facility] [address] [place] [address] USAAnion gap [Moles/Vol]9.9 mmol/LNormal6.0-15.0OhiohealthComment on above:Performed By: #### COLLIN #### [facility] , #### PTH, CRP, CBC, ESR, URIC, CMP #### [facility] [address] [place] [address] USAAST [Catalytic activity/Vol]24 U/RIssydl83-74OvaptrsirOhiohealthComment on above:Performed By: #### COLLIN #### [facility] , #### PTH, CRP, CBC, ESR, URIC, CMP #### [facility] [address] [place] [address] USABilirubin [Mass/Vol]0.4 mg/dLNormal0.3-1.0OhiohealthComment on above:Performed By: #### COLLIN #### [facility] , #### PTH, CRP, CBC, ESR, URIC, CMP #### [facility] [address] [place] [address] USACalcium [Mass/Vol]9.6 mg/dLNormal8.6-10.3FBrecksville VA / Crille HospitalComment on above:Performed By: #### COLLIN #### [facility] , #### PTH, CRP, CBC, ESR, URIC, CMP #### [facility] [address] [place] [address] USAChloride [Moles/Vol]103 mmol/VHvsudx33-835XemczebkwOhiohealthComment on above:Performed By: #### COLLIN #### [facility] , #### PTH, CRP, CBC, ESR, URIC, CMP #### [facility] [address] [place] [address] USACO2 [Moles/Vol]29.5 mmol/WCanqme96.0-31.0OhiohealthComment on above:Performed By: #### COLLIN #### [facility] , #### PTH, CRP, CBC, ESR, URIC, CMP #### [facility] [address] [place] [address] USACreatinine [Mass/Vol]1.06 mg/dLNormal0.70-1.30OhiohealthComment on above:Performed By: #### COLLIN #### [facility] , #### PTH, CRP, CBC, ESR, URIC, CMP #### [facility] [address] [place] [address] USAGFR/1.73 sq M.predicted MDRD (S/P/Bld) [Vol rate/Area] mL/min/{1.73_m2}UK HealthcareComment on above: Performed By: #### COLLIN #### [facility] , #### PTH, CRP, CBC, ESR, URIC, CMP #### [facility] [address] [place] [address] USAGlobulin (S) [Mass/Vol]3.2 g/dLNormalOhiohealthComment on above:Performed By: #### COLLIN #### [facility] , #### PTH, CRP, CBC, ESR, URIC, CMP #### [facility] [address] [place] [address] USAGlucose [Mass/Vol]81 mg/xYCisuas50-537MxbowcejmOhiohealthComment on above:Result Comment: Random Glucose Reference Range is dependent on time and content of last meal. Glucose of more than 200 mg/dL in a nonstressed, ambulatory subject supports the diagnosis of Diabetes Mellitus. ADA recommended reference rangePerformed By: #### COLLIN #### [facility] , #### PTH, CRP, CBC, ESR, URIC, CMP #### [place] [address] USAPotassium [Moles/Vol]4.4 mmol/LNormal3.5-5.1FBrecksville VA / Crille HospitalComment on above:Performed By: #### COLLIN #### [facility] , #### PTH, CRP, CBC, ESR, URIC, CMP #### [place] [address] USAProtein [Mass/Vol]7.4 g/dLNormal6.4-8.9OhiohealthComment on above:Performed By: #### COLLIN #### [facility] , #### PTH, CRP, CBC, ESR, URIC, CMP #### [facility] [address] [place] [address] USASodium [Moles/Vol]138 mmol/SVplpxe449-426IknpbmrtiOhiohealthComment on above:Performed By: #### COLLIN #### [facility] , #### PTH, CRP, CBC, ESR, URIC, CMP #### [facility] [address] [place] [address] USAUrea nitrogen [Mass/Vol]19 mg/dLNormal7-25OhiohealthComment on above:Performed By: #### COLLIN #### [facility] , #### PTH, CRP, CBC, ESR, URIC, CMP #### [facility] [address] [place] [address] USAErythrocyte Sedimentation Rateon 32-29-4595GSA (Bld) [Velocity]43 mm/hHigh0-19OhiohealthComment on above: Result Comment: PERFORMED BY: [place] [address] PATHOLOGIST [employer] ROMULO SERRA M.D.Performed By: #### COLLIN #### [facility] , #### PTH, CRP, CBC, ESR, URIC, CMP #### [place] [id number] USAParathyroid Hormone Intacton 77-02-5339Umtvuvzbqyv Hormone Vuqzzr78.1 pg/lYYtwdkh47-09Bmrxcpe[address] [place], [place] [address]Comment on above: Result Comment: PERFORMED BY: [place] [address] PATHOLOGIST [employer] ROMULO SERRA M.D.Performed By: #### COLLIN #### [facility] , #### PTH, CRP, CBC, ESR, URIC, CMP #### [place] [address] USAUric Acidon 06-87-3289Bejkv [Mass/Vol]3.5 mg/dLNormal 2.4-7.6FBrecksville VA / Crille HospitalComment on above:Performed By: #### COLLIN #### [facility] , #### PTH, CRP, CBC, ESR, URIC, CMP #### [place] [id number] USAXR foot LT 2Von 77-56-1970UP foot LT 2VGU[facility] [place] [address] XRay Report Signed Patient: Kristy Doherty MR#: [id number] 81 : 1955 Acct:[id number] Age/Sex: 67 / M ADM Date: 12/03/22 Loc: ICXD Room: Type: [facility] Attending Dr: Kristy Beatty MD Copies [...] Dictation Location: RADIO-PC-07 Transcribed By: SUSAN 12/03/22 1656 Dictated By: Bonnie Grewal II, MD 12/03/22 1655 Signed By: 12/03/[address] Vincent Medical CenterXR hand BI 2Von 48-71-1187DG hand BI 2VGU[facility] [place] [address] XRay Report Signed Patient: Kristy Doherty MR#: [id number] 81 : 1955 Acct:[id number] Age/Sex: 67 / M ADM Date: 12/03/22 Loc: ICXD Room: Type: [facility] Attending Dr: Kristy Beatty MD Copies [...] Grewal II, MD 12/03/221650 Signed By: 12/03/22 1729UK HealthcareXR knee LT 2Von 41-24-0112SQ knee LT 2VGU[facility] [place] [place] [address] XRay Report Signed Patient: Kristy Doherty MR#: [id number] 81 : 1955 Acct:[id number] Age/Sex: 67 / M ADM Date: 12/03/22 Loc: ICXD Room: Type: [facility] Attending Dr: Kristy Beatty MD Copies [...] Bonnie Grewal M.D.12/03/2022 4:54 PM Dictation Location: [place] [address] Transcribed By: [facility] 12/03/221653 Dictated By: Bonnie Grewal II, MD 12/03/221652 Signed By: 12/03/221653UK HealthcareANA by Dequan 11-04-2022 Antinuclear Antibodies, IFANegativeKettering Health Main CampusComment on above: Result Comment: Negative <1:80 Borderline 1:80 Positive >1:80 ICAP nomenclature: AC-0 For more information about Hep-2 cell patterns use ANApatterns.org, the official website for the International Consensus on Antinuclear Antibody (COLLIN) Patterns (ICAP).Performed By: #### CMADM, BMP #### [facility] [address] [place] [address] Dr. Yilan ChangANTISTREPTOLYSIN O AB (ASO)on 34-95-8548Bolfrpbuuqysdxro O Ab 326.2 IU/mLCritically high0.0-200.0The [facility] Orrville HospitalComment on above: Performed By: #### ASOAB #### [facility] [address] [place] [address] Dr. Skylar ChadwickRHEUMATOID FACTORon 72-78-5626VO Latex Turbid.14.3 IU/mL Critically high<14.0The [facility] HospitalComment on above:Performed By: #### KEVIN, BMP #### [facility] [address] [place] [address] Dr. Skylar CastleC AUTO DIFFon 48-46-3595MHWD #0.1 103/ulNormal0.0-0.1The [facility] HospitalComment on above:Performed By: #### KEVIN, BMP #### [facility] [address] [place] [address] Dr. Skylar ChadwickBasophils/100 WBC (Bld)0.7 %Normal0.2-2.0B[facility] Comment on above:Performed By: #### KEVIN, BMP #### [facility] [address] [place] [address] Dr. Skylar Chamorro #0.2 103/ulNormal0.0-0.7The [facility] HospitalComment on above: Performed By: #### KEVIN, BMP #### [facility] [address] [place] [address] Dr. Skylar Burnhamosinophils/100 WBC (Bld)2.8 %Normal0.9-7.0The [facility] Comment on above:Performed By: #### KEVIN, BMP #### [facility] [address] [place] [address] Dr. Skylar Burnhamrythrocyte distribution width (RBC) [Ratio]15.1 %Critically high 11.0-15.0The [facility] HospitalComment on above:Performed By: #### KEVIN, BMP #### [facility] [address] [place] [address] Dr. Skylar ChadwickHematocrit (Bld) [Volume fraction]37.2 %Critically low42.0-54.0 The [facility] HospitalComment on above:Performed By: #### KEVIN, BMP #### [facility] [address] [place] [address] Dr. Skylar ChadwickHemoglobin (Bld) [Mass/Vol]12.2 g/dLCritically low14.0-18.0The [facility] HospitalComment on above:Performed By: #### GABYDM, BMP #### [facility] [address] [place] [address] Dr. Skylar Ruiz #0.02 10e3/ulNormal0.00-0.03[facility]Comment on above:Performed By: #### GABYDM, BMP #### [facility] [address] [place] [address] Dr. Skylar Ruiz %0.3 %Normal0.0-0.5[facility]Comment on above: Performed By: #### GABYDM, BMP #### [facility] [address] [place] [address] Dr. Skylar Jackson #2.2 103/ulNormal1.2-3.8[facility] HospitalComg[facility] on above:Performed By: #### GABYDM, BMP #### [facility] [address] [place] [address] Dr. Skylar Selbyhocytes/100 WBC (Bld)30.3 %Mxyjkk14.5-60.0[facility] HospitalComment on above:Performed By: #### CMADM, BMP #### [facility] [address] [place] [address] Dr. Skylar HobbsUAL DIFF REQNONormalThe [facility] HospitalComment on above: Performed By: #### CMADM, BMP #### [facility] [address] [place] [address] Dr. Skylar Taylor (RBC) [Entitic mass]29.3 bjZpfheb80.9-34.0The [facility] HospitalComment on above:Performed By: #### CMADM, BMP #### [facility] [address] [place] [address] Dr. Skylar Fraser (RBC) [Mass/Vol]32.8 g/tCIvlfax78.9-35.2The [facility] HospitalComment on above:Performed By: #### CMADM, BMP #### [facility] [address] [place] [address] Dr. Skylar FraserV (RBC) [Entitic vol]89.2 bFInuzvr77.0-94.0The [facility] HospitalComment on above:Performed By: #### CMADM, BMP #### [facility] [address] [place] [address] Dr. Skylar Bhardwaj #0.8 103/ulNormal0.3-0.8The [facility] HospitalComment on above:Performed By: #### CMADM, BMP #### [facility] [address] [place] [address] Dr. Skylar Dasilvaocytes/100 WBC (Bld)10.9 %Normal1.7-12.0The [facility] Comment on above:Performed By: #### CMADM, BMP #### [facility] [address] [place] [address] Dr. Skylar Arreguin #4.0 103/ulNormal1.4-6.5The [facility] HospitalComment on above:Performed By: #### CMADM, BMP #### [facility] [address] [place] [address] Dr. Skylar Carrenoophils/100 WBC (Bld)55.0 %Rieruz65.0-75.0The [facility] HospitalComment on above:Performed By: #### CMADM, BMP #### [facility] [address] [place] [address] Dr. Skylar Flowerslet mean volume (Bld) [Entitic vol]10.3 fLNormal9.5-13.5The [facility] HospitalComment on above:Performed By: #### CMADM, BMP #### [facility] [address] [place] [address] Dr. Skylar ByrnesT289 103/roRlihue471-152Mmo [facility] on above: Performed By: #### CMADM, BMP #### [facility] [address] [place] [address] Dr. Skylar ChadwickRBC4.17 106/ulCritically low4.70-6.10The [facility] HospitalComment on above:Performed By: #### CMADM, BMP #### [facility] [address] [place] [address] Dr. Skylar ChadwickWBC7.2 103/ulNormal4.0-11.0The [facility] on above: Performed By: #### CMADM, BMP #### [facility] [address] [place] [address] Dr. Skylar Montgomery 30-67-0238PFB1.3 mg/dLCritically high<=1.0The [facility] on above:Performed By: #### URIC, CMP, CRP #### [facility] [address] [place] [address] Dr. Skylar Church 14(COMP METB)on 41-08-3416Oeilqbi [Mass/Vol]3.4 g/dLNormal 3.4-5.0The [facility] on above:Performed By: #### URIC, CMP, CRP #### [facility] [address] [place] [address] Dr. Skylar ChadwickAlbumin/Globulin [Mass ratio]0.7 {ratio}NormalThe [facility] on above:Performed By: #### URIC, CMP, CRP #### [facility] [address] [place] [address] Dr. Skylar Lr [Catalytic activity/Vol]72 U/HMryidv53-438Sxk [facility] on above:Performed By: #### URIC, CMP, CRP #### [facility] [address] [place] [address] Dr. Skylar Villeda [Catalytic activity/Vol]28 U/NHnzyji43-06Srr [facility] HospitalComment on above:Performed By: #### URIC, CMP, CRP #### [facility] [address] [address] [address] Skylar Herring gap [Moles/Vol]9.9 mmol/LNormalThe [facility] HospitalComment on above:Performed By: #### URIC, CMP, CRP #### [facility] [address] [address] [address] Skylar ChadwickAST [Catalytic activity/Vol]19 U/KMsfyqp14-16Dvo [facility] HospitalComment on above:Performed By: #### URIC, CMP, CRP #### [facility] [address] [place] [address] Dr. Skylar ChadwickBilirubin [Mass/Vol]0.3 mg/dLNormal0.2-1.0The [facility] Comment on above:Performed By: #### URIC, CMP, CRP #### [facility] [address] [place] [address] Dr. Skylar ChadwickCalcium [Mass/Vol]9.8 mg/dLNormal8.5-10.1The [facility] Comment on above:Performed By: #### URIC, CMP, CRP #### [facility] [address] [place] [address] Dr. Skylar ChadwickChloride [Moles/Vol]103 mmol/MXglapk73-563Skx [facility] Comment on above:Performed By: #### URIC, CMP, CRP #### [facility] [address] [place] [address] Dr. Skylar ChadwickCO2 [Moles/Vol]31.0 mmol/LXcrtai52.0-32.0The [facility] Comment on above:Performed By: #### URIC, CMP, CRP #### [facility] [address] [place] [address] Dr. Skylar ChadwickCreatinine [Mass/Vol]1.14 mg/dLNormal0.70-1.30The [facility] HospitalComment on above:Performed By: #### URIC, CMP, CRP #### [facility] [address] [place] [address] Dr. Yilan ChangEGFR-AF GAMBIAN>60Normal>=60The [facility] HospitalComment on above:Performed By: #### URIC, CMP, CRP #### [facility] [address] [place] [address] Dr. Skylar BurnhamGFR-NON AF GAMBIAN>60Normal>=60The [facility] HospitalComment on above:Performed By: #### URIC, CMP, CRP #### [facility] [address] [place] [address] Dr. Skylar ChadwickGlobulin (S) [Mass/Vol]4.8 g/dLNormalThe [facility] HospitalComment on above:Performed By: #### URIC, CMP, CRP #### [facility] [address] [place] [address] Dr. Skylar ChadwickGlucose [Mass/Vol]88 mg/bGPkopvm43-018YpdBrecksville [facility] Comment on above:Performed By: #### URIC, CMP, CRP #### [facility] [address] [place] [address] Dr. Skylar ChadwickPotassium [Moles/Vol]3.9 mmol/LNormal3.5-5.1[facility] Comment on above:Performed By: #### URIC, CMP, CRP #### [facility] [address] [place] [address] Dr. Skylar ChadwickProtein [Mass/Vol]8.2 g/dLNormal6.4-8.2[facility] Comment on above:Performed By: #### URIC, CMP, CRP #### [facility] [address] [place] [address] Dr. Skylar ChadwickSodium [Moles/Vol]140 mmol/YNrfxan907-520RdpBrecksville Va [facility] Comment on above:Performed By: #### URIC, CMP, CRP #### [facility] [address] [place] [address] Dr. Skylar ChadwickUrea nitrogen [Mass/Vol]18.0 mg/dLNormal7.0-18.0The [facility] HospitalComment on above:Performed By: #### URIC, CMP, CRP #### [facility] [address] [address] [address] Skylar ChadwickUrea nitrogen/Creatinine [Mass ratio]15.8 mg/mgNoCleveland Clinic Marymount HospitalComment on above:Performed By: #### URIC, CMP, CRP #### [facility] [address] [address] [address] Skylar ChadwickSED RATE WESTERGRENon 46-44-3533EHS RATE67 mm/hrCritically high <=20The [facility] HospitalComment on above:Performed By: #### CMADM, BMP #### [facility] [address] [address] [address] Skylar ChadwickURIC ACID SERUMon 53-57-7207Kgfoc [Mass/Vol]3.3 mg/dLCritically low3.5-7.2The [facility] HospitalComment on above:Performed By: #### URIC, CMP, CRP #### [facility] [address] [address] [address] Skylar ChadwickXR KNEE LT 3Von 25-15-1117OI KNEE LT 3VEXAM: XR KNEE LT 3V HISTORY: Effusion of joint of left knee COMPARISON: None. TECHNIQUE: 3 views FINDINGS: There is no acute fracture or dislocation. No radiopaque foreign body. The soft tissues are unremarkable. IMPRESSION: No acute fracture or dislocation. Electronically authenticated by: BONNIE RODRIGUES Date: 2022-11-02 14:46[facility] CampusECHOCARDIO M/2D COMPLETEon [id number] M/2D COMPLETE Patient: KRISTY DOHERTY Exam Date: 10/28/2022 : 1955 Gender:M Ordering : DR BORIS WILLIAM M.D. Admission #: [id number] Family : Order #: [id number] CLICK HERE TO VIEW EXAM ECHOCARDIOGRAM REPORT [...] 45.86 ml, 45.86 ml Dictated by: Boris William M.D. on 10/30/2022 at 19:15 Approved by: Boris William M.D. on 10/30/2022 at 19:19[facility] CampusXR CHEST 2 Von [id number] CHEST 2 VEXAM: XR CHEST 2 V HISTORY: . Automatic [...] Electronically authenticated by: ASIF COLVIN Date: 2022-09-05 15:49[facility] CampusECHOCARDIO M/2D COMPLETEon [id number] M/2D COMPLETE Patient: KRISTY DOHERTY Exam Date: 08/18/2022 : 1955 Gender:M Ordering : MILDRED LOGAN Admission #: [id number] Family : Order #: [id number] CLICK HERE TO VIEW EXAM ECHOCARDIOGRAM REPORT [...] Area (VTI): 2.22 cm2, 2.22 cm2 Deceleration [place]: 1.61 m/s2 Pressure Half-Time: 686.93 ms Peak [...] 47.91 ml, 47.91 ml Dictated by: Boris William M.D. on 08/19/2022 at 17:19 Approved by: Boris William M.D. on 08/19/2022 at 17:24[facility] CampusCARDIAC BONNIE 3-6on [id number] [Catalytic activity/Vol]231 U/LNormal 39-308[facility] HospitalComment on above:Performed By: #### CMREP #### [facility] [address] [address] [address] Skylar Lin.MB [Mass/Vol]1.39 ng/mLNormal<=3.60[facility] Comment on above:Performed By: #### CMREP #### [facility] [address] [address] [address] Skylar Stanley41.4 pg/mLNormal4.0-76.1The [facility] HospitalComment on above:Result Comment: CUT-OFF POINTS HAVE BEEN ESTABLISHED BASED ON THE FOURTH UNIVERSAL DEFINITIONS OF MYOCARDIAL INFARCTION. THE UPPER REFERENCE LIMIT (URL) OF TROPONIN, DEFINED THE 99TH PERCENTILE OF cTnI DISTRIBUTION IN A REFERENCE POPULATION, HAS BEEN CONFIRMED THE DECISION THRESHOLD FOR DE DIAGNOSIS.Performed By: #### CMREP #### [facility] [address] [place] [address] Dr. Skylar Lin [Catalytic activity/Vol]214 U/FWbktby30-108Cme [facility] HospitalComment on above:Performed By: #### CMREP #### [facility] [address] [place] [address] Dr. Skylar Lin.MB [Mass/Vol]1.37 ng/mLNormal<=3.60The [facility] Comment on above:Performed By: #### CMREP #### [facility] [address] [place] [address] Dr. Skylar ChadwickHSTROP37.0 pg/mLNormal4.0-76.1The [facility] HospitalComment on above:Result Comment: CUT-OFF POINTS HAVE BEEN ESTABLISHED BASED ON THE FOURTH UNIVERSAL DEFINITIONS OF MYOCARDIAL INFARCTION. THE UPPER REFERENCE LIMIT (URL) OF TROPONIN, DEFINED THE 99TH PERCENTILE OF cTnI DISTRIBUTION IN A REFERENCE POPULATION, HAS BEEN CONFIRMED THE DECISION THRESHOLD FOR DE DIAGNOSIS.Performed By: #### CMREP #### [facility] [address] [place] [address] Dr. Skylar Jvoel AUTO DIFFon [id number] #0.1 103/ulNormal0.0-0.1[facility] HospitalComment on above:Performed By: #### CMADM, BMP #### [facility] [address] [place] [address] Dr. Skylar ChadwickBasophils/100 WBC (Bld)1.3 %Normal0.2-2.0The [facility] Comment on above:Performed By: #### CMADM, BMP #### [facility] [address] [place] [address] Dr. Skylar Chamorro #0.6 103/ulNormal0.0-0.7The [facility] HospitalComment on above: Performed By: #### CMADM, BMP #### [facility] [address] [place] [address] Dr. Skylar Burnhamosinophils/100 WBC (Bld)7.1 %Critically high0.9-7.0The [facility] HospitalComment on above:Performed By: #### KEVIN, BMP #### [facility] [address] [place] [address] Dr. Skylar Burnhamrythrocyte distribution width (RBC) [Ratio]13.0 %Vdmwjc48.0-15.0 The [facility] HospitalComment on above:Performed By: #### KEVIN, BMP #### [facility] [address] [place] [address] Dr. Skylar ChadwickHematocrit (Bld) [Volume fraction]37.2 %Critically low42.0-54.0 The [facility] HospitalComment on above:Performed By: #### KEVIN, BMP #### [facility] [address] [place] [address] Dr. Skylar ChadwickHemoglobin (Bld) [Mass/Vol]13.2 g/dLCritically low14.0-18.0The [facility] HospitalComment on above:Performed By: #### KEVIN, BMP #### [facility] [address] [place] [address] Dr. Skylar Ruiz #0.02 10e3/ulNormal0.00-0.03The [facility] HospitalComment on above:Performed By: #### KEVIN, BMP #### [facility] [address] [place] [address] Dr. Skylar Ruiz %0.3 %Normal0.0-0.5The [facility] HospitalComment on above: Performed By: #### CMADEE, BMP #### [facility] [address] [place] [address] Dr. Skylar SelbyH #2.2 103/ulNormal1.2-3.8The [facility] HospitalComment on above:Performed By: #### CMADEE, BMP #### [facility] [address] [place] [address] Dr. Skylar Lewismphocytes/100 WBC (Bld)27.4 %Gfqkkl21.5-60.0The [facility] HospitalComment on above:Performed By: #### CMADM, BMP #### [facility] [address] [address] [address] Skylar Funk DIFF REQNONormalThe [facility] HospitalComment on above: Performed By: #### CMADM, BMP #### [facility] [address] [address] [address] Skylar Fraser (RBC) [Entitic mass]32.4 reDmnduz11.9-34.0The [facility] HospitalComment on above:Performed By: #### CMADM, BMP #### [facility] [address] [address] [address] Skylar Fraser (RBC) [Mass/Vol]35.5 g/dLCritically high29.9-35.2The [facility] HospitalComment on above:Performed By: #### CMADM, BMP #### [facility] [address] [place] [address] Dr. Skylar Fraser (RBC) [Entitic vol]91.2 yCGzzhwf20.0-94.0The [facility] HospitalComment on above:Performed By: #### CMADM, BMP #### [facility] [address] [place] [address] Dr. Skylar Bhardwaj #1.1 103/ulCritically high0.3-0.8The [facility] Comment on above:Performed By: #### CMADM, BMP #### [facility] [address] [place] [address] Dr. Skylar Dasilvaocytes/100 WBC (Bld)14.1 %Critically high1.7-12.0The [facility] HospitalComment on above:Performed By: #### CMADM, BMP #### [facility] [address] [place] [address] Dr. Skylar Arreguin #4.0 103/ulNormal1.4-6.5The [facility] HospitalComment on above:Performed By: #### CMADM, BMP #### [facility] [address] [place] [address] Dr. Skylar Kumarutrophils/100 WBC (Bld)49.8 %Eiwkhj39.0-75.0The [facility] HospitalComment on above:Performed By: #### GABYDM, BMP #### [facility] [address] [place] [address] Dr. Skylar Flowerslet mean volume (Bld) [Entitic vol]10.5 fLNormal9.5-13.5The [facility] HospitalComment on above:Performed By: #### GABYDM, BMP #### [facility] [address] [place] [address] Dr. Skylar ChadwickPLT159 103/keCikvca507-720Icl [facility] HospitalComment on above: Performed By: #### KEVIN, BMP #### [facility] [address] [place] [address] Dr. Skylar ChadwickRBC4.08 106/ulCritically low4.70-6.10The [facility] HospitalComment on above:Performed By: #### KEVIN, BMP #### [facility] [address] [place] [address] Dr. Skylar ChadwickWBC8.0 103/ulNormal4.0-11.0The [facility] HospitalComment on above: Performed By: #### KEVIN, BMP #### [facility] [address] [place] [address] Dr. Skylar ChadwickCovid-19 PCR ([facility])on 47-63-9509EFWV-CoV-2 (COVID-19) RNA DANDY+probe Ql (Unsp spec)Not detectedNormalNOT DETECTEDThe [facility] Comment on above:Result Comment: When diagnostic testing is negative, the [...] for this test is supported by the Retail Support Specialist of Health and Human Service's declaration that circumstances exist to justify the emergency use of in vitro diagnostics for the detection and/or diagnosis of the virus that causes COVID-19. This EUA will remain in effect for the duration of the COVID-19 declaration justifying emergency of IVDs, unless it is terminated or revoked by the FDA (after which the test may no longer be used).Performed By: #### CVDTBH #### [facility] [address] [address] [address] Cheng ChangECHOCARDIO M/2D COMPLETEon [id number] M/2D COMPLETE Patient: KRISTY DOHERTY Exam Date: 07/02/2022 : 1955 Gender:M Ordering : EDDIE SISTER Admission #: [id number] Family : DR RUDY KING . Order #: [id number] CLICK HERE TO VIEW EXAM ECHOCARDIOGRAM REPORT [...] by: Krystina Mills M.D. on 07/02/2022 at 14:11[facility] CampusPROF CHEM 8 (BAS METB)on 99-89-7115Ohtbe gap [Moles/Vol]8.4 mmol/LNormal The [facility] HospitalComment on above:Performed By: #### BMP #### [facility] [address] [place] [address] Dr. Skylar ChadwickCalcium [Mass/Vol]8.3 mg/dLCritically low8.5-10.1The [facility] HospitalComment on above:Performed By: #### BMP #### [facility] [address] [place] [address] Dr. Skylar ChadwickChloride [Moles/Vol]97 mmol/LCritically ydq81-938ApjBrecksville Va / Crille HospitalComment on above:Performed By: #### BMP #### [facility] [address] [place] [address] Dr. Skylar ChadwickCO2 [Moles/Vol]32.9 mmol/LCritically high21.0-32.0[facility] HospitalComment on above:Performed By: #### BMP #### [facility] [address] [address] [address] Skylar ChadwickCreatinine [Mass/Vol]1.08 mg/dLNormal0.70-1.30The [facility] HospitalComment on above:Performed By: #### BMP #### [facility] [address] [address] [address] Skylar BurnhamGFR-AF GAMBIAN>60Normal>=60The [facility] HospitalComment on above:Performed By: #### BMP #### [facility] [address] [place] [address] Dr. Skylar BurnhamGFR-NON AF GAMBIAN>60Normal>=60The [facility] HospitalComment on above:Performed By: #### BMP #### [facility] [address] [address] [address] Skylar ChadwickGlucose [Mass/Vol]114 mg/dLCritically lxqw19-391Vin [facility] HospitalComgarden city hospital on above:Performed By: #### BMP #### [facility] [address] [address] [address] Skylar ChadwickPotassium [Moles/Vol]3.3 mmol/LCritically low3.5-5.1The [facility] HospitalComment on above:Performed By: #### BMP #### [facility] [address] [address] [address] Skylar ChadwickSodium [Moles/Vol]135 mmol/LCritically jlg541-295Vlz [facility] HospitalComment on above:Performed By: #### BMP #### [facility] [address] [address] [address] Skylar ChadwickUrea nitrogen [Mass/Vol]13.0 mg/dLNormal7.0-18.0The [facility] HospitalComment on above:Performed By: #### BMP #### [facility] [address] [address] [address] Skylar Ladd nitrogen/Creatinine [Mass ratio]12.0 mg/mgNormalThe [facility] HospitalComgarden city hospital on above:Performed By: #### BMP #### [facility] [address] [address] [address] Skylar ChadwickAnion gap [Moles/Vol]8.6 mmol/LNormalThe [facility] HospitalComment on above:Performed By: #### CMADM, BMP #### [facility] [address] [address] [address] Skylar ChadwickCalcium [Mass/Vol]8.6 mg/dLNormal8.5-10.1The [facility] on above:Performed By: #### CMADM, BMP #### [facility] [address] [address] [address] Skylar ChadwickChloride [Moles/Vol]96 mmol/LCritically asy21-366Kya [facility]a HospitalComment on above:Performed By: #### CMADM, BMP #### [facility] [address] [address] [address] Skylar ChadwickCO2 [Moles/Vol]34.2 mmol/LCritically high21.0-32.0The [facility] HospitalComment on above:Performed By: #### CMADM, BMP #### [facility] [address] [address] [address] Skylar ChadwickCreatinine [Mass/Vol]1.05 mg/dLNormal0.70-1.30The [facility] HospitalComment on above:Performed By: #### CMADM, BMP #### [facility] [address] [place] [address] Dr. Skylar BurnhamGFR-AF GAMBIAN>60Normal>=60The [facility] HospitalComment on above:Performed By: #### CMADM, BMP #### [facility] [address] [place] [address] Dr. Skylar BurnhamGFR-NON AF GAMBIAN>60Normal>=60The [facility] HospitalComment on above:Performed By: #### CMADM, BMP #### [facility] [address] [place] [address] Dr. Skylar ChadwickGlucose [Mass/Vol]113 mg/dLCritically bcbk93-387Kra [facility] HospitalComment on above:Performed By: #### CMADM, BMP #### [facility] [address] [place] [address] Dr. Skylar ChadwickPotassium [Moles/Vol]2.8 mmol/LCritically low3.5-5.1The [facility] HospitalComment on above:Performed By: #### CMADM, BMP #### [facility] [address] [place] [address] Dr. Skylar ChadwickSodium [Moles/Vol]136 mmol/EFsqrwm421-396Hzb [facility] Comment on above:Performed By: #### CMADM, BMP #### [facility] [address] [place] [address] Dr. Yilan ChangUrea nitrogen [Mass/Vol]10.0 mg/dLNormal7.0-18.0[facility] HospitalComment on above:Performed By: #### KEVIN, DAMIEN #### [facility] [address] [address] [address] Skylar Ladd nitrogen/Creatinine [Mass ratio]9.5 mg/mgNormalThe [facility] HospitalComment on above:Performed By: #### KEVIN, DAMIEN #### [facility] [address] [address] [address] Skylar Kendrick CAROTID ART BILon 84-24-0066YO CAROTID ART BILEXAMINATION: US CAROTID ART SHIRA HISTORY: Syncope COMPARISON: No relevant [...] Electronically authenticated by: ASIF JOHN Date: 2022-07-02 11:23[facility] CampusCARDIAC BONNIE ADMITon [id number] [Catalytic activity/Vol]201 U/AHijhhg49-776Mwk [facility] HospitalComment on above:Performed By: #### DAMIEN BROWN #### [facility] [address] [place] [address] Dr. Skylar Lin.MB [Mass/Vol]1.31 ng/mLNormal<=3.60The [facility] Comment on above:Performed By: #### KEVIN BMP #### [facility] [address] [place] [address] Dr. Skylar FlorTROP34.8 pg/mLNormal4.0-76.1[facility] HospitalComment on above:Result Comment: CUT-OFF POINTS HAVE BEEN ESTABLISHED BASED ON THE FOURTH UNIVERSAL DEFINITIONS OF MYOCARDIAL INFARCTION. THE UPPER REFERENCE LIMIT (URL) OF TROPONIN, DEFINED THE 99TH PERCENTILE OF cTnI DISTRIBUTION IN A REFERENCE POPULATION, HAS BEEN CONFIRMED THE DECISION THRESHOLD FOR DE DIAGNOSIS.Performed By: #### CMADM, BMP #### [facility] [address] [place] [address] Dr. Skylar DiazO336 ng/mLCritically orif00-93Mxn [facility] HospitalComment on above:Performed By: #### CMADM, BMP #### [facility] [address] [place] [address] Dr. Skylar Jovel AUTO DIFFon 21-56-4558NTHK #0.1 103/ulNormal0.0-0.1The [facility] HospitalComment on above:Performed By: #### CBC #### [facility] [address] [place] [address] Dr. Skylar ChadwickBasophils/100 WBC (Bld)1.2 %Normal0.2-2.0[facility] Comment on above:Performed By: #### CBC #### [facility] [address] [place] [address] Dr. Skylar Chamorro #0.5 103/ulNormal0.0-0.7The [facility] HospitalComment on above: Performed By: #### CBC #### [facility] [address] [place] [address] Dr. Skylar Burnhamosinophils/100 WBC (Bld)6.3 %Normal0.9-7.0[facility] Comment on above:Performed By: #### CBC #### [facility] [address] [place] [address] Dr. Skylar Burnhamrythrocyte distribution width (RBC) [Ratio]12.9 %Javwbd28.0-15.0 The [facility] HospitalComment on above:Performed By: #### CBC #### [facility] [address] [place], [place] [address] Dr. Skylar ChadwikcHematocrit (Bld) [Volume fraction]38.0 %Critically low42.0-54.0 The [facility] HospitalComment on above:Performed By: #### CBC #### [facility] [address] [place] [address] Dr. Skylar ChadwickHemoglobin (Bld) [Mass/Vol]13.5 g/dLCritically low14.0-18.0The [facility] HospitalComment on above:Performed By: #### CBC #### [facility] [address] [place] [address] Dr. Skylar ChadwickIG #0.02 10e3/ulNormal0.00-0.03The [facility] HospitalComment on above:Performed By: #### CBC #### [facility] [address] [place] [address] Dr. Skylar Ruiz %0.2 %Normal0.0-0.5The [facility] HospitalComment on above: Performed By: #### CBC #### [facility] [address] [place] [address] Dr. Skylar Jackson #2.6 103/ulNormal1.2-3.8The [facility] HospitalComment on above:Performed By: #### CBC #### [facility] [address] [place] [address] Dr. Skylar Lewismphocytes/100 WBC (Bld)30.5 %Ilbbym53.5-60.0The [facility] HospitalComment on above:Performed By: #### CBC #### [facility] [address] [place] [address] Dr. Skylar ChadwickMANUAL DIFF REQNONormalThe [facility] HospitalComment on above: Performed By: #### CBC #### [facility] [address] [place] [address] Dr. Skylar Taylor (RBC) [Entitic mass]32.2 yhVersyu51.9-34.0The [facility] HospitalComment on above:Performed By: #### CBC #### [facility] [address] [address] [address] Skylar FraserHC (RBC) [Mass/Vol]35.5 g/dLCritically high29.9-35.2The [facility] HospitalComment on above:Performed By: #### CBC #### [facility] [address] [address] [address] Skylar FraserV (RBC) [Entitic vol]90.7 vLOwlwmb14.0-94.0The [facility] HospitalComment on above:Performed By: #### CBC #### [facility] [address] [place] [address] Dr. Skylar Bhardwaj #1.2 103/ulCritically high0.3-0.8The [facility] Comment on above:Performed By: #### CBC #### [facility] [address] [place] [address] Dr. Skylar Dasilvaocytes/100 WBC (Bld)14.3 %Critically high1.7-12.0The [facility] HospitalComment on above:Performed By: #### CBC #### [facility] [address] [place] [address] Dr. Skylar Arreguin #4.0 103/ulNormal1.4-6.5The [facility] HospitalComment on above:Performed By: #### CBC #### [facility] [address] [place] [address] Dr. Skylar Kumarutrophils/100 WBC (Bld)47.5 %Woohja26.0-75.0The [facility] HospitalComment on above:Performed By: #### CBC #### [facility] [address] [place] [address] Dr. Skylar Flowerslet mean volume (Bld) [Entitic vol]10.4 fLNormal9.5-13.5The [facility] HospitalComment on above:Performed By: #### CBC #### [facility] [address] [place] [address] Dr. Skylar ChadwickPLT175 103/gdBabiok855-303Zjx [facility] HospitalComment on above: Performed By: #### CBC #### [facility] [address] [address] [address] Skylar ChadwickRBC4.19 106/ulCritically low4.70-6.10The [facility] HospitalComgarden city hospital on above:Performed By: #### CBC #### [facility] [address] [place], [place] [address] Dr. Skylar ChadwickWBC8.4 103/ulNormal4.0-11.0The [facility] HospitalComment on above: Performed By: #### CBC #### [facility] [address] [address] [address] Skylar ChadwickCT CSPINE WO CONon 05-44-7560JZ CSPINE WO CONEXAMINATION: CT CSPINE WO CON HISTORY: HEADACHE ; posterior head [...] Electronically authenticated by: BRIAN BRADSHAW Date: 2022-07-01 21:26NormMercy Health – The Jewish HospitalCT HEAD WO CONon 21-25-4383BO HEAD WO CONEXAMINATION: CT HEAD WO CON HISTORY: HEADACHE . [...] of the sinuses are not in the xuqru-jc-jlde. The middle ears are aerated the mastoid [...] Electronically authenticated by: ADIEL KERN Date: 2022-07-01 20:44[facility] CampusD-DIMERon 46-42-2679Q-DIMER0.35 mg/L FEUNormal<=0.59The [facility] Hospitalment on above:Performed By: #### KEVIN, BMP #### [facility] [address] [place] [address] Dr. Skylar Rosenbaum-DIMER COMMENTSSEE [facility] on above:Result Comment: Increases in D-Dimer concentration observed with thromboembolic events [...] stress, and generalized hospitalization. Performed By: #### KEVIN, BMP #### [facility] [address] [place] [address] Dr. Skylar ChadwickPROF CHEM 8 (BAS METB)on 86-52-8073Txbmt gap [Moles/Vol]13.5 mmol/LNormalThe [facility] Hospitalment on above:Performed By: #### KEVIN, BMP #### [facility] [address] [place], [place] [address] Dr. Skylar ChadwickCalcium [Mass/Vol]8.8 mg/dLNormal8.5-10.1The [facility] Comment on above:Performed By: #### CMADM, BMP #### [facility] [address] [place] [address] Dr. Skylar ChadwickChloride [Moles/Vol]94 mmol/LCritically ryx03-502Dai [facility] HospitalComment on above:Performed By: #### CMADM, BMP #### [facility] [address] [place] [address] Dr. Skylar ChadwickCO2 [Moles/Vol]29.0 mmol/KDfiwez42.0-32.0The [facility] Comment on above:Performed By: #### CMADM, BMP #### [facility] [address] [place] [address] Dr. Skylar ChadwickCreatinine [Mass/Vol]1.03 mg/dLNormal0.70-1.30The [facility] HospitalComment on above:Performed By: #### CMADM, BMP #### [facility] [address] [place] [address] Dr. Skylar BurnhamGFR-AF GAMBIAN>60Normal>=60The [facility] HospitalComgarden city hospital on above:Performed By: #### CMADM, BMP #### [facility] [address] [place] [address] Dr. Skylar BurnhamGFR-NON AF GAMBIAN>60Normal>=60The [facility] HospitalComment on above:Performed By: #### CMADM, BMP #### [facility] [address] [place] [address] Dr. Skylar ChadwickGlucose [Mass/Vol]111 mg/dLCritically mdgc88-689Kvi [facility] HospitalComment on above:Performed By: #### CMADM, BMP #### [facility] [address] [place] [address] Dr. Skylar ChadwickPotassium [Moles/Vol]2.5 mmol/LCritically low3.5-5.1The [facility] HospitalComment on above:Performed By: #### CMADM, BMP #### [facility] [address] [place], [place] [address] Dr. Skylar ChadwickSodium [Moles/Vol]134 mmol/LCritically lrp999-013Gzf [facility] Hospitalment on above:Performed By: #### CMADM, BMP #### [facility] [address] [place], [place] [address] Dr. Skylar ChadwickUrea nitrogen [Mass/Vol]12.0 mg/dLNormal7.0-18.0The [facility] HospitalComment on above:Performed By: #### CMADM, BMP #### [facility] [address] [place], [place] [address] Dr. Skylar ChadwickUrea nitrogen/Creatinine [Mass ratio]11.7 mg/mgNoCleveland Clinic Marymount HospitalComgarden city hospital on above:Performed By: #### CMADM, BMP #### [facility] [address] [place], [place] [address] Dr. Skylar ChadwickXR CHEST 1 Von 95-93-9859UL CHEST 1 VCXR HISTORY: Shortness of breath COMPARISON: None. TECHNIQUE: 1 view chest submitted for review. FINDINGS: The lungs are adequately expanded without evidence of acute infiltrate or effusion. The cardiac silhouette measures within normal. Pulmonary vascularity is unremarkable. Osseous structures are within normal limits for age. IMPRESSION: No plain film evidence for acute cardiopulmonary disease. Electronically authenticated by: SOBEIDA MONCADA Date: 2022-07-01 20:44[facility] Colonoscopyon 78-04-4317Ihrftrc Colonoscopy [id number]#1.00CD:127[facility] FoundationRAD - MISCon 76-50-5507PEI - MISC [id number]#1.00CD:127[facility] Clinic FoundationXR COLON AIR CONTR.on 20-77-9904VQ COLON AIR CONTR.EXAMINATION: XR COLON AIR CONTR. HISTORY: Colonoscopy abnormal COMPARISON: No relevant comparison available. FLUOROSCOPY TIME: Fluoro time measures 3 minutes 40 seconds and 22 images were obtained. TECHNIQUE: An air contrast barium enema examination was performed in the usual manner. No site safety representative abdominal radiograph was performed. Standard level fluoroscopic mode of operation utilized. FINDINGS: COLON: No focal obstruction, mass or stricture. Mild diverticulosis distal descending and proximal sigmoid colon. OTHER: Negative. IMPRESSION: Mild diverticulosis, otherwise normal exam Electronically authenticated by: ASIF JOHN Date: 2022-01-28 14:34[facility] CampusPre-Certification Formon 83-41-0179Axd-Certification Form [id number]#1.00CD:127[facility] FoundationConsent for Procedure/Surgeryon 57-50-2779Mwfaykd for Procedure/Surgery [id number]#1.00CD:127[facility] FoundationAmbulatory Visit Summaryon 56-14-9737Hjerbygehf Visit Summary KRISTY DOHERTY :1955 Visit Date:01/07/2022 Ambulatory Visit Instructions Your Diagnosis Screening for colorectal cancer Encounter for screening for malignant neoplasm of rectum Your Care Team Attending Physician - ANGELICA KLEIN, Ravi Brenstein Primary Care Physician - FERNANDO KLEIN, RUDY [...] cancer Seasonal allergic rhinitis Vitamin D deficiency [facility] FoundationPhysician Referralon 12-19-2021 Physician [id number]#1.00CD:127[facility] Vital Signs Date TimeVital SignValuePerforming SurtnuxsxVxogokup64-27-4515 11:01-0400Body yxspyz826.7 cmMariah Lange MD Work Phone: [facility] CenterBscjqxciof03-49-8323 11:01-0400Body mass index (BMI) [Ratio]28.59 kg/n0SnlrfwMariah Lange MD Work Phone: [facility] CenterNsxfhkyzqq60-07-1374 11:01-0400Body coqdpb35.28 kgMariah Lange MD Work Phone: [facility] CenterZplkifmbhx44-74-6742 11:01-0400Diastolic blood lbnhzuzz48 mm[Hg]Mariah Lange MD Work Phone: [facility] CenterIsrgvknras58-22-4533 11:01-0400Heart rate88 /min Mariah Lange MD Work Phone: [facility] CenterAeebkmbexk58-02-3068 11:01-0400Systolic blood bugusepi202 mm[Hg]Mariah Lange MD Work Phone: [facility] CenterKzeczucgav10-52-3823 15:08-0400Body .7 cmRudy King MD Work Phone: [facility] CenterRzabgnezdx72-08-4898 15:08-0400Body mass index (BMI) [Ratio]29.5 kg/m2Rudy King MD Work Phone: [facility] CenterFifiyimgrp35-38-6597 15:08-0400Body temperature 97.81 [degF]Rudy King MD Work Phone: [facility] CenterIbkietaibp43-66-0114 15:08-0400Body ynygyz88 kg Rudy King MD Work Phone: [facility] CenterXyerfuluco81-72-6753 15:08-0400Diastolic blood dfudhpzl34 mm[Hg]Rudy King MD Work Phone: FCChristian HospitalEbkiheegnz21-30-2239 15:08-0400Heart rate94 /min Rudy King MD Work Phone: [facility] CenterLmkjsoidvu58-16-3832 15:08-0400Respiratory rate18 /minRudy King MD Work Phone: [facility] CenterQhviylxjql68-13-6683 15:08-1083JxD6% (BldA) [Mass fraction]96 %Rudy King MD Work Phone: HNChristian HospitalPadbhflznt06-25-7524 15:08-0400Systolic blood mm[Hg]Rudy King MD Work Phone: noND Healthcare Encounters Encounter DateEncounter TypeCare ProviderFacilityStart: 37-30-3277uvkenvdfijTZGEParkview Health Bryan Hospitaltart: 96-36-5146Pbbreohhbb and management of inpatientRAJESH GUPTASelect Medical [facility], Beachwoodtart: 36-27-3605Rshmqbtars and management of inpatientOMAR HORANISelect Medical [facility] Hospital, Beachwoodtart: 59-18-4072Zyzgnovyty and management of inpatientBLAIR ROCÍO [facility], Beachwoodtart: 60-46-1757Njlmfextey and management of inpatientAADIL MAMercy Health Lorain Hospitaltart: 04-28-2025 Evaluation and management of inpatientAADIL MAMercy Health Lorain Hospitaltart: 85-53-6111Gbhdprcfqe and management of inpatientAADIL LINETTE [facility], Beachwoodtart: 45-31-3345Kvohntsnwk and management of inpatientOMAR HORChildren's Hospital for Rehabilitationtart: 04-23-2025 Evaluation and management of inpatientSAMAR [place] [facility] Systemtart: 49-16-7174Vjtiwvabfz and management of inpatientIDREES KACEYCleveland Clinic Euclid Hospitaltart: 93-98-8702Snrpnegmsb and management of inpatientCHRISTOPHER [facility] Hospitaltart: 04-19-2025 Evaluation and management of inpatientCHRISTOPHER [facility] Hospitaltart: 57-68-9866Btlfgpepkb and management of inpatientSAMER J [facility] Hospitaltart: 80-13-6839Fgwyvkuzpu and management of inpatientKYLE [facility] Hospitaltart: 04-19-2025 End: 12-54-3882Pyebrmrzsn and management of inpatientDARYL T [facility] Hospitaltart: 04-03-2025 End: 48-53-4390ohepzjmgikUAEKAZH [facility] Hospitaltart: 03-26-2025 End: 03-41-2046wawzjwtthzPASSULX [facility] Hospitaltart: 37-44-0230npudwlqwhtCYJFB GRUBBUMemorial Health System Marietta Memorial Hospitaltart: 20-79-6957pmpdzazlspZNYCF GRUBBUniKindred Hospital Limatart: 02-26-2025 End: 26-65-1093amzfwxbuaqTTVELU MOUKANHIOhioHealth Mansfield Hospital Start: 46-81-2115eaulrraumiSMSV STACYRiverside Methodist Hospitaltart: 35-15-5976qzuzlwwzxcOWPZUCleveland Clinic Medina Hospitaltart: 39-33-9634Qxcsomsqju and management of inpatientMELINDA [facility] Hospitaltart: 02-06-2025 End: 28-91-3375Wpivynyvnm and management of inpatientGEORGE MOUKARBELUniversity of Dubose Medical CenterStart: 02-05-2025 End: 82-97-1394Tofzyo Meghan Lange MD Work Phone: [facility] CI ENTStart: 02-05-2025 End: 83-08-9722Tlljnystacey Lange MD Work Phone: NOAV CI ENTStart: 02-05-2025 End: 34-78-6116Dsjtmp outpatient visit 15 minutesMariah Lange MD Work Phone: NOMD CI ENTComment on above:Nasal polyp (Primary Dx) Start: 02-05-2025 End: 68-32-9176mlgtnzkjyaSXRWEV H TIMMISNot AvailableStart: 01-30-2025 End: 86-15-3358Asfgzzlzo Result EncounterGeneric External Data ProviderNOMS External Department UnsolicitedStart: 01-30-2025 End: 77-58-8526Lwtzztray Result EncounterGeneric External Data ProviderNOMS External Department UnsolicitedStart: 93-31-9317oysysargklBZVPSouthview Medical Centertart: 12-12-2024 End: 76-12-4769Gqurvo outpatient visit 25 minutesRudy King MD Work Phone: [facility] CWM FMComment on above:Benign essential hypertension (CMS/HCC) (Primary Dx); Chronic HFrEF (heart failure with reduced ejection fraction) (CMS/HCC); Mild persistent asthma without complication (CMS/HCC); Paroxysmal atrial fibrillation (CMS/HCC)Start: 12-12-2024 End: 80-69-0390svsthslnigUAMC NADERERNot AvailableStart: 12-12-2024 End: 83-29-8887Jkovly Kev King MD Work Phone: [facility] CWM FMStart: 12-12-2024 End: 00-69-0942Rokteg Kev King MD Work Phone: [facility] CWM FMStart: 12-05-2024 End: 27-61-1036Rlrttdgyy Result EncounterGeneric External Data ProviderNOMS External Department UnsolicitedStart: 12-05-2024 End: 65-18-8390Bplpcbutt Result EncounterGeneric External Data ProviderNOMS External Department UnsolicitedStart: 12-01-2024 End: 27-71-4793fxbdyeddpgVYEEPGDayton Children's Hospital Start: 30-96-5135ldxjhchrbbXROLParkwood Hospitaltart: 73-93-9737unrpaipoarJJCISLProMedica Defiance Regional Hospitaltart: 11-07-2024 End: 36-04-6991zlcqzqikesOUTHParkwood Hospitaltart: 42-29-8572slerhnuktiXIPZParkwood Hospitaltart: 05-79-8768obpajbmgjvOCDNParkwood Hospitaltart: 18-14-7165vxwgmgwwlbJHLLParkwood Hospitaltart: 08-16-2024 End: 74-61-4802Tvxoyjqtq Result EncounterGeneric External Data ProviderNOMS External Department UnsolicitedStart: 08-16-2024 End: 43-27-0137Uqccylaui Result EncounterGeneric External Data ProviderNOMS External Department UnsolicitedStart: 73-35-2737dhtmbyudauPGWDParkwood Hospitaltart: 99-26-5141Cmognqgww for preprocedural cardiovascular examinationParkwood Hospitaltart: 59-76-4252nonptnexcpKQYQParkwood Hospitaltart: 07-03-2024 End: 67-10-5721kcfyhwwtkmZMVEDEDayton Children's Hospital Start: 65-33-1864ycaibpgoorGWSWParkwood Hospitaltart: 57-65-5066ciecnorgupEDGLParkwood Hospitaltart: 61-16-7809hgmevwzlxaLMSNParkwood Hospitaltart: 67-92-2468vucbeubarhQZLT CHARiverside Methodist Hospitaltart: 12-03-2022 End: 54-43-8154onizeiqvwcDxccpb HaladayFacility:[facility] Hospitaltart: 88-51-1664vodoowkhanAF RUDY A NADERERFacility:S5Qpuee: 11-02-2022 End: 45-72-0690feldqnymotTHM APOORVA AICHHOLZFacility:G3Jajjd: 10-28-2022 End: 20-08-6365kucwdpabglMM BORIS MOUKARBELFacility:D2Fhccg: 09-05-2022 End: 32-64-6120tkwxmzsoahJBBQ CHACKOFacility:F3Wnrcw: 44-88-6071hqlntujluiXD BORIS MOUKARBELFacility:W2Zbhkq: 08-18-2022 End: 72-59-4881jumpraehhoYP RUDY A NADERERFacility:K8Oaqkj: 08-18-2022 End: 34-54-7154ftojnysaqgNF RUDY A NADERERFacility:L9Argvt: 08-03-2022 End: 39-60-2393azkonlrjvuVO RUDY A NADERERFacility:X1Rkcvk: 07-02-2022 End: 22-66-3407elmsjscpkmTP RUDY A NADERERFacility:W2Zfcou: 01-28-2022 End: 87-89-0777eoooqrtssuFI RUDY A NADERERFacility:H1 Procedures DateProcedureProcedure DetailPerforming ClinicianStart: 70-20-1288Lzadko-up visitFollow-upMELINDA TUCKERStart: 47-04-2281UCJ BASIC METABOLIC PANELGeneric External Data ProviderStart: 07-84-6340MY ECHO DOPPLER COMPLETEGeneric External Data ProviderStart: 53-87-1276Gxcadj-up visitDARYL PARKERStart: 04-05-7094MPX BASIC METABOLIC PANELGeneric External Data ProviderStart: 00-67-1644Rhqgcs-up visitDARYL PARKERStart: 48-38-0197VvzieflwgsmFnhjjuh Provider Plan of Treatment DateCare ActivityDetailAuthorStart: 06-19-2025 End: 17-43-1900Gkrclfm encounter /02/2025 10:00 AM EST Office Visit [facility] [address] [place] [address] Rudy King MD [address] [place] [address] [facility] FMStart: 27-83-0891Qflixgafb vaccinationSAN JUAN HOSPITAL HealthcareStart: 02-05-2025 End: 19-40-3193Rniaviy encounter procedureNOMS CI ENTComment on above:Arrived Start: 12-12-2024 End: 18-44-1772Xsiehkg encounter procedureNOMS CWM FMComment on above:Arrived Start: 51-13-5906Ccpausmwy vaccinationInfluenza Vaccine (#1)[facility] Start: 28-89-6319Lkqiojzsz for malignant neoplasm of colonNOND HealthcareStart: 38-78-3974Cgwidtibjmjr Vaccine: 65+ Years (1 of 2 - PCV)Pneumococcal Vaccine: 65+ Years (1 of 2 - PCV)[facility] HealthcareStart: 20-55-1138Nhzzkuszqmyc Vaccine: 65+ Years (1 of 2 - PCV)Pneumococcal Vaccine: 65+ Years (1 of 2 - PCV)[facility] HealthcareStart: 03-04-1956Medicare Annual Wellness (AWV)Medicare Annual Wellness (AWV)[facility] HealthcareStart: 92-16-9545Gkeexnokc for malignant neoplasm of colonNOND Healthcare Immunizations Immunization DateImmunizationNotesCare DpxiuerhHnhmlkin40-21-5658tsgrjntlwd, tetanus toxoids and pertussis vaccineGeneric [facility]03-26-2021 Pfizer Purple Cap SARS-CoV-2 VaccinationGeneric [facility] 74-29-7988Rxwrjt Purple Cap SARS-CoV-2 VaccinationGeneric [facility] HospitalSdlpigxzan39-74-2553ayhpuutia virus vaccine, unspecified formulationGeneric [facility] Payers DatePayer CategoryPayerPolicy [id number]-pay2023Medicare (Managed Care)[id number] [id number] [id number] 2.16.840.1.954723.3.57[id number] 2.840.1.266787.3.57[id number] 2.16840.1.776363.3.57[id number] 2.840.1.211142.3.57[id number] 2.840.1.266935.3.57[id number] 2.0.1.229004.3.57[id number] 2.0.1.044610.3.57[id number] 2.0.1.738550.3.57[id number] 2.840.1.712104.3.57[id number] 2.0.1.001465.3.57[id number] 2.840.1.140653.3.57[id number] 2.840.1.28[id number] 2.840.1.943788.3.579.2.531 Social History DateTypeDetailFacilityStart: 08-12-7432Dpjzibr smoking status NHISNever smoked tobaccoNOMS HealthcareStart: 35-61-0167Hgjsdxa use and exposureUser of smokeless tobaccoNOMS HealthcareHistory of tobacco useChews TobaccoNOMS HealthcareStart: 01-17-2024 End: 82-02-6846Pvcklwfpm beverage intakeCurrent drinker of alcohol (finding)NOMS HealthcareStart: 07-22-2023 End: 32-89-2953Xptlhwa of Social functionNOMS HealthcareStart: 07-22-2023 End: 46-32-1198Ywqbutd use panelNOMS HealthcareStart: 14-53-0487Eeuxvxi Comment caffeine intake: 1-2 cups per day of coffee/teaNOMS HealthcareStart: 1955 Sex assigned at birthNot on [facility] Clinical Notes 01-07-2022 to 05-04-2025 Note Date & SzuzPkppKlkrkirm63-64-3118 Note05/07/25 1235 communication received that [facility] no longer accepting referrals sent, [facility] accepting- sent them AVS and they will call Patient to start servicesUn[facility]10-17-2025 Note [facility]10-17-2025 NoteUnCleveland Clinic [facility] Hospital10-17-2025 NoteUnCleveland Clinic [facility] Hospital10-17-2025 Note [facility]10-17-2025 NoteUnCleveland Clinic [facility] Hospital10-16-2025 NoteUnCleveland Clinic [facility] Hospital10-16-2025 Note [facility]10-16-2025 NoteUnCleveland Clinic Fairview Hospital10-16-2025 Note- Nonischemic cardiomyopathy. - Echo this admission showed EF 20%. - Continue Toprol and Farxiga. - Hold Entresto and spironolactone due to hypotension. - Right cath today.[facility]10-16-2025 Note- Neck side. - Fluid cx was sent. - We will order US neck. - Start doxy empirically.[facility]10-16-2025 Note- Due to shock. - Required CRRT in ICU. - Monitor Crea while off dialysis. - Avoid nephrotoxic agents.[facility]10-16-2025 Note- Nonobstructive. - Continue aspirin, Plavix, Lipitor.[facility] 05-03-2025 Note- Continue Toprol, Farxiga and spironolactone. - Hold Entresto due to LINDA.[facility]10-16-2025 Note- Echo on admission showed early tamponade. Patient was taken to catholic priest for Pericardiocentesis. Right heart cath was not suggestive for tamponade. 300 ml serosanguinous fluid. - Repeated echo showed mild effusion.[facility] 05-03-2025 Note- Albuterol and switched from his Advair to our equivalent. [facility]10-16-2025 Note- Currently paced. - Status post Watchman. - Continue aspirin and Plavix.[facility]10-16-2025 Note - Required Narberth Stacy and dobutamine in ICU. - Improving.[facility]10-16-2025 Note- Required Narberth Stacy and dobutamine in ICU. - Improving.[facility]10-16-2025 NoteUnCleveland Clinic [facility] Hospital10-16-2025 NoteUnC[facility] Clinic [facility] 05-03-2025 NoteUnC[facility] Clinic [facility] Hospital10-16-2025 NoteMemorial Health [facility]10-15-2025 NoteUnC[facility] 05-02-2025 NoteUnC[facility]10-15-2025 NoteUnC[facility]10-15-2025 NoteUnC[facility] 05-02-2025 NoteUnC[facility]10-15-2025 NoteUnC[facility]10-14-2025 NoteUnC[facility] 05-01-2025 NoteUnCleveland [facility] 05-01-2025 [facility]UnC[facility]20[facility]Un[facility]13-2025 [facility] 04-30-2025 NoteMem[facility]10-13-2025 [facility]2025 [facility] 04-29-2025 Note[facility]-12-2025 [facility]12-2025 [facility] 04-29-2025 NoteMem[facility]10-11-2025 NoteMem[facility]-11-2025 [facility] 04-28-2025 NoteMem[facility]-2025 NoteMem[facility]-10-2025 [facility] 04-27-2025 NoteMem[facility]-10-2025 NoteMem[facility]10-10-2025 [facility] 04-26-2025 NoteMem[facility]10-09-2025 Note[facility]10-09-2025 [facility] 04-26-2025 NoteMem[facility]10-08-2025 NoteMem[facility]10-08-2025 [facility] 04-25-2025 [facility]UnC[facility]10-07-2025 Note- Nonobstructive. - Continue aspirin, Plavix, Lipitor.[facility] 04-24-2025 Note- Continue Toprol. - Hold Entresto and spironolactone due to hypotension.[facility]10-07-2025 Note- Albuterol and switched from his Advair to our equivalent.[facility]10-07-2025 Note- Nonischemic cardiomyopathy. - Echo this admission showed EF 20%. - Continue Toprol and Farxiga. - Hold Entresto and spironolactone due to hypotension. - Right cath today.[facility]10-07-2025 Note- CTA chest showed no PE. - Right cath today.[facility]10-07-2025 Note- Currently paced. - Status post Watchman. - Continue aspirin and Plavix.[facility]10-07-2025 Note - Echo showed early tamponade. Patient was taken to catholic priest for Pericardiocentesis. Right heart cath was not suggestive for tamponade. 300 ml serosanguinous fluid. - Monitor BP. - Continue colchicine per Cardiology. - Repeated echo showed mild effusion.[facility] 04-24-2025 [facility]UnC[facility]10-07-2025 [facility]Un[facility]10-07-2025 [facility]Un[facility] 04-23-2025 Note- Echo showed early tamponade. Patient was taken to catholic priest for Pericardiocentesis. Right heart cath was not suggestive for tamponade. 300 ml serosanguinous fluid. - Monitor BP. - Continue colchicine per Cardiology. - Repeated echo showed mild effusion.[facility] 04-23-2025 Note- We will order CTA chest due to tachycardia. - Left and right cath tomorrow.[facility]10-06-2025 Note- Nonischemic cardiomyopathy. - Echo this admission showed EF 20%. - Continue Toprol and Farxiga. - Hold Entresto and spironolactone due to hypotension.[facility]10-06-2025 Note- Status post Watchman. - Continue aspirin and Plavix.[facility]10-06-2025 Note - Continue Toprol. - Hold Entresto and spironolactone due to hypotension.[facility]10-06-2025 Note- Nonobstructive. - Continue aspirin, Plavix, Lipitor.[facility] 04-23-2025 Note- Albuterol and switched from his Advair to our equivalent. [facility]10-06-2025 [facility]Un[facility]10-06-2025 [facility]Un[facility]10-05-2025 Note- Status post Watchman. - Continue aspirin and Plavix.[facility]10-05-2025 Note - Nonischemic cardiomyopathy - Echo this admission showed EF 60%. - Hold Farxiga, Toprol, Entresto, spironolactone due to hypotension. Might resume tomorrow.[facility]10-05-2025 Note- Albuterol and switched from his Advair to our equivalent.[facility]10-05-2025 [facility]Un[facility]10-05-2025 Note [facility]10-05-2025 Note- Hold Toprol, Entresto, spironolactone due to hypotension. Might resume tomorrowUnCleveland Clinic [facility]10-05-2025 Note- Nonobstructive. - Continue aspirin, Plavix, Lipitor.[facility] 04-22-2025 NoteUnC[facility]10-05-2025 NoteUnC[facility]10-04-2025 Note- Nonischemic cardiomyopathy - Echo this admission showed EF 60%. - Hold Farxiga, Toprol, Entresto, spironolactone due to hypotension.[facility]10-04-2025 [facility]Un[facility] 04-21-2025 NoteUnC[facility]10-04-2025 NoteUn[facility]10-04-2025 Note- Hold Toprol, Entresto, spironolactone due to hypotension.[facility]10-04-2025 Note- Nonobstructive. - Continue aspirin, Plavix, Lipitor. - Hold Toprol due to hypotension.[facility]10-04-2025 Note- Restarted patients albuterol and switched from his Advair to our equivalent.[facility]10-04-2025 NoteThis report has been cancelled.[facility]10-04-2025 Note- Status post Watchman. - Continue aspirin and Plavix.[facility]10-04-2025 Note [facility]10-03-2025 NoteUnC[facility]10-03-2025 Note- Follow up urine Na and osmol. - Improving.[facility]10-03-2025 Note- Nonobstructive. - Continue aspirin, Plavix, Lipitor. - Hold Toprol due to hypotension.[facility]10-03-2025 Note- Hold Toprol, Entresto, spironolactone due to hypotension.[facility]10-03-2025 [facility]UnC[facility] 04-20-2025 Note- Restarted patients albuterol and switched from his Advair to our equivalent.[facility]10-03-2025 Note- Status post Watchman. - Continue aspirin and Plavix.[facility]10-03-2025 Note - Nonischemic cardiomyopathy with recovery. - Echo this admission showed EF 60%. - Hold Farxiga, Toprol, Entresto, spironolactone due to hypotension.[facility]10-03-2025 NoteUnC[facility] 04-20-2025 NoteUnC[facility]10-03-2025 NoteUn[facility]10-02-2025 NoteUn[facility] 04-19-2025 NoteUn[facility]10-02-2025 NoteUnC[facility]10-02-2025 NoteSatisfactory for evaluation. Examination of the ThinPrep slide and cell block reveals rare benign mesothelial cells and abundant acute inflammation.[facility] HospitalComment on above: Performed By: #### LAB13 ####[facility] [place], [place] [id number] NoteThis report has been cancelled.[facility]10-02-2025 NoteSodium 126 Will continue to monitor Urine sodium and serum osmolality orderedUnCleveland Clinic [facility] 04-19-2025 NoteContinue aspirin plavix and lipitor EKG is mostly unchanged from previous Troponins at outside hospital were downtrending from 11.5 to 10.5UnC[facility]10-02-2025 Noteatrial fibrillation status post Watchman - Will continue aspirin and plavix Will continue to monitorUnCleveland Clinic [facility]10-02-2025 Note Restarted patients albuterol and switched from his Advair to our equivalent [facility]10-02-2025 NotePatient states he has been hypotensive for two weeks Holding antihypertensives for now Will continue to monitor patients blood pressureUnCleveland Clinic [facility] Hospital10-02-2025 NoteUnC[facility]10-02-2025 Note [facility]10-02-2025 NoteUnC[facility]09-16-2025 NoteUnC[facility]08-11-2025 Note [facility]07-23-2025 [id number] post Watchman CTA order [facility]07-21-2025 History of Present illness Narrative* Mariah Lange MD - 02/05/2025 11:10 AM EDT Subjective Patient ID: Kristy Doherty is a 69 y.o. male who presents for Sinusitis (1 year sinus check) Pt using dupixent every 2 weeks and notes good symptom control. Family History Problem Relation Name Age of Onset Heart disease Mother Stroke Mother Diabetes Mother COPD Father Heart disease Sibling Active Ambulatory Problems Diagnosis Date Noted Mild persistent asthma without complication ([facility]) 07/29/2012 Benign essential hypertension 05/27/2011 Allergic rhinitis due to pollen 03/02/2023 Chronic pansinusitis 03/02/2023 Seasonal allergic rhinitis 08/31/2022 Chronic HFrEF (heart failure with reduced ejection fraction) (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) 07/22/2023 Resolved Ambulatory Problems Diagnosis Date Noted [...] removal, left sphenoidectomy OTHER SURGICAL HISTORY Bilateral 2009 Functional Endoscopic Surgery PROSTATECTOMY 2007 No Known [...] puff in the morning and 1 puff beforebedtime. 60 each 3 metoprolol succinate XL (Toprol-XL) [...] prescribed. Continue current regimen documented in this encounterUniversity Health Lakewood Medical [id number] History of Present illness Narrative* Rudy King MD - 12/12/2024 9:03 PM EDTAssociated Problem(s): Paroxysmal atrial fibrillation (CMS/HCC) In NSR and continue medication. Follow up with cardiology. Bleeding problems on Eliquis and recommend device such as Watchman device to stop anticoagulation. * Rudy King MD - 12/12/2024 9:02 PM EDTAssociated Problem(s): Mild persistent asthma without complication (CMS/HCC) No SOB and continue advair. Use albuterol PRN. * Rudy King MD - 12/12/2024 9:02 PM EDTAssociated Problem(s): Chronic HFrEF (heart failure with reduced ejection fraction) (CMS/HCC) No edema and continue medication. Follow up with cardiology. * Rudy King MD - 12/12/2024 9:02 PM EDTAssociated Problem(s): Benign essential hypertension (CMS/HCC) BP controlled and monitor PRN. * Rudy King MD - 12/12/2024 3:00 PM EDT Images from the original note [...] and tolerating without side effects. Asthma stable. NoSOB or cough with exertion. No nocturnal cough or SOB. Using advair daily and albuterol PRN which helps. Allergies controlled with medication. No congestion or rhinorrhea. No CARTER or sinus pressure. Ears not plugged or [...] device to stop anticoagulation. documented in this encounterUniversity Health Lakewood Medical [id number] NoteUnCleveland Clinic [facility]12-16-2024 NoteUnCleveland Clinic [facility]01-31-2023 Note PROCEDURE: XR FOOT LT MIN 3 VIEWS HISTORY: Pain in left [...] Electronically authenticated by: BRIAN BRADSHAW Date: 2022-08-18 15:43[facility]01-17-2023 NotePROCEDURE: XR FOOT LT MIN 3 VIEWS COMPARISON: None. HISTORY: Pain in left foot FINDINGS: BONES:No acute fracture or dislocation. Mild enthesopathic spurring of the calcaneus at the Achilles and plantar insertions. Mild degenerative changes of the midfoot SOFT TISSUES:Negative. No visible soft tissue swelling. EFFUSION:None visible. OTHER: Negative. IMPRESSION: No acute abnormality Electronically authenticated by: ASIF JOHN Date: 2022-08-04 08:48[facility]07-13-2022 NoteOPERATIVE NOTE OPERATION DATE: 01/28/2022 PREOPERATIVE DIAGNOSIS: Colorectal screening. POSTOPERATIVE DIAGNOSIS: Redundant colon. PROCEDURE: Colonoscopy to ascending colon. SURGEON: Ravi Dominguez M.D. ANESTHESIA: Monitored anesthesia care/general. ESTIMATED BLOOD [...] in 10 years. CC: Rudy King M.D. [facility] Signed and Approved by: DR RAVI DOMINGUEZ . 01/30/2022 12:35:00[facility]06-22-2022 NoteChief Complaint consultation for screening colonoscopy [facility] Staff 66 year old male presents on [...] swallowing difficulties, no hearing loss, no ear infection(s),no nose bleeds. Cardiovascular: normal blood pressure, no [...] lung: Brother. Primary malignant neoplasm of prostate: Brother.[facility] Comment on above:Result Comment: Electronically Signed By: Ravi DOMINGUEZ MD\Date and Time Signed: 01/07/22 16:19 EDTEvaluation note* Diagnosis Benign essential hypertension (CMS/HCC)- Primary Essential [...] (CMS/HCC) Atrial fibrillation documented in this encounter [facility] HealthcareEvaluation note* Diagnosis Benign essential hypertension- [...] section and content) DATE CREATED AUTHOR 02/04/2022 [facility] DATE CREATED AUTHOR AUTHOR'S ORGANIZ ATION 11/27/2022 [facility] DATE CREATED AUTHOR AUTHOR'S ORGANIZ ATION 12/25/2022 [facility] DATE CREATED AUTHOR AUTHOR'S ORGANIZ ATION 02/06/2025 [facility] DATE CREATED AUTHOR AUTHOR'S ORGANIZ ATION 05/11/2025 [facility] Care Teams (unrecognized sec tion and content) Team MemberRelationshipSpecialtyStart DateEnd Date Rudy King MD [address] [place] [phone] PCP - [facility]01/17/24Team MemberRelationshipSpecialtyStart DateEnd Date Rudy King MD [address] [place] [phone] PCP - [facility]01/17/24Team MemberRelationshipSpecialtyStart DateEnd Date Rudy King MD [address] [place] [phone] PCP - [facility]01/17/24Team MemberRelationshipSpecialtyStart DateEnd Date Rudy King MD [address] [place] [address] [facility]/24Team MemberRelationshipSpecialtyStart DateEnd Date Rudy King MD [address] [place] [phone] [facility]01/17/24 Reason for Visit (unrecogniz ed section and content) ReasonCommentsFollow-upDiscuss watchman deviceReasonCommentsSinusitis1 year sinus check FOR RECORDS PERTAINING TO [...] BE BASED ON THE PRIMARY CLINICAL RECORDS. [employer] [facility]. provides no warranty or guarantee of the accuracy or completeness of information in this document.
--- OUTSIDE RECORDS SUMMARY | 2025-05-14 14:57 | XMS_ITS | Encounter Summary ---
Author Organization [facility] Address [address] [place] [address] Care Team Providers Care Application Support Technician Name Role Phone Rudy Guerra MD Primary Care Provider [phone] Reason for Referral * Consultation (Routine) - Pending ReviewSpecialtyDiagnoses / ProceduresReferred By ContactReferred To ContactNephrology Diagnoses LINDA (acute kidney injury) Hyponatremia Procedures OK OFFICE/OUTPATIENT [facility] 60 MINUTES Hay William MD [address] [facility] [address] [facility] [place] [address] Phone: tel: fax: Referral IDStatusReasonStart DateExpiration DateVisits RequestedVisits [id number] Review Specialty Services Required Encounter Details DateTypeDepartmentCare Team (Latest Contact Info)Dadywmdvvpv33/20/2025Orders Only [facility] [place] [address] [place] [address] Mercedes Prado MA LINDA (acute kidney injury) (Primary Dx); Hyponatremia Social History Tobacco UseTypesPacks/DayYears UsedDateSmoking Tobacco: FormerCigarettes Smokeless Tobacco: NeverAlcohol UseStandard Drinks/MeqqRojvxvlwRfo22 (1 standard drink = 0.6 oz pure alcohol)occasionalAHC UtilitiesAnswerDate RecordedIn the past 12 months has the electric, gas, oil, or water company threatened [...] were you homeless or living in a intermediate (including now)? No04/19/2025Hunger Vital SignAnswerDate RecordedWithin the past 12 months, you worried that your food would run out before you got the money to buymore.Never true04/19/2025Ran Out of Food in the Last YearNot on file04/19/2025Sex and Gender InformationValueDate RecordedSex Assigned at YokqwMtyb26/06/2025 8:51 AM EDTLegal FlyHgpo9801/14/2022 10:53 PM EDTGender JyhmlsvwPxlk46/06/2025 8:51 AM EDT Sexual OrientationHeterosexual or Yegyrnge04/06/2025 8:51 AM EDTdocumented as of this encounter Plan of Treatment DateTypeDepartmentCare Team (Latest Contact Info)Aqoleghcaab13/05/2025 10:00 AM ESTOffice Visit [facility] [place] [address] [place] [address] Hay William MD [address] [place] [address] [facility] [place] [address] NameTypePriorityAssociated DiagnosesOrder ScheduleAmbulatory referral to NephrologyOutpatient ReferralRoutine LINDA (acute kidney injury) Hyponatremia Expected: 05/07/2025 (Approximate), Expires: 11/05/2025documented as of this encounter Visit Diagnoses Diagnosis LINDA (acute kidney injury)- Primary Hyponatremia Hyposmolality and/or hyponatremia documented in this encounter Care Teams Team MemberRelationshipSpecialtyStart DateEnd Date Rudy Guerra MD [address] [place] [address] PCP - Anddzch02/16/22documented as of this encounter
--- OUTSIDE RECORDS SUMMARY | 2025-05-14 14:57 | XMS_ITS | Encounter Summary ---
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 Name Role Phone Rudy Guerra MD Primary Care Provider [phone] Encounter Details DateTypeDepartmentCare Team (Latest Contact Info)Lzvaekcdnvb95/17/2025Orders Only [facility] [address] [place] [address] Bobo Raymond MD [address] [place] [address] Social History Tobacco UseTypesPacks/DayYears UsedDateSmoking Tobacco: FormerCigarettes Smokeless Tobacco: NeverAlcohol UseStandard Drinks/TvhaVkkficamLgu43 (1 standard drink = 0.6 oz pure alcohol)occasionalAHC UtilitiesAnswerDate RecordedIn the past 12 months has the electric, gas, oil, or water [employer] threatened to shut off services in your [...] were you homeless or living in a usp (including now)? No04/19/2025Hunger Vital SignAnswerDate RecordedWithin the past 12 months, you worried that your food would run out before you got the money to buymore.Never true04/19/2025Ran Out of Food in the Last YearNot on file04/19/2025Sex and Gender InformationValueDate RecordedSex Assigned at SqqmxErzl45/06/2025 8:51 AM EDTLegal VypJaib9301/14/2022 10:53 PM EDTGender PyzqubfwXurp44/06/2025 8:51 AM EDT Sexual OrientationHeterosexual or Jweumlea17/06/2025 8:51 AM EDTdocumented as of this encounter Functional Status * QuestionAnswerDate of ZodcvburooTatumpYI069/6505/04/2025 12:07 PM Beena Martines RNPulse9505/04/2025 12:07 PM Beena Martines RNHeart Rate SourceMonitor 05/04/2025 12:07 PM Beena Martines RNPatient BlbtdkifPtgiwzk11/17/2025 12:07 PM Beena Martines RN * Sherman Fall RiskQuestionAnswerDate of AssessmentAuthorHistory of Falling, Immediate or Within 3 Awfamf910 9:23 AM Beena Martines RNSecondary Lfpmriwrv6328/17/2025 9:23 AM Beena Martines, RNAmbulatory Zcy072 9:23 AM Beena Martines RNIntravenous Therapy/Heparin Ulyi278 9:23 AM Beena Martines RNGait/Egjtevpzdnhp8748/ 9:23 AM eBena Martines RN Mental Sitlin657/17/2025 9:23 AM Beena Martines RNMorse Fall Risk Score25 05/04/2025 9:23 AM Beena Martines RN * Christiano ScaleQuestionAnswerDate of AssessmentAuthorBraden No Risk Interventions Continue to assess patient according to level of care05/04/2025 9:23 AM Beena Alcaraz, RNSensory Rfomfwfmofy679/17/2025 9:23 AM Beena Martines RN Osclzjzw700/17/2025 9:23 AM Beena Martines, ZPPgrkwokm895/17/2025 9:23 AM Beena Alcaraz, TCZcfjkryt143/17/2025 9:23 AM Beena Martines RNNutrition3 05/04/2025 9:23 AM Beena Martines, RNFriction and Phlfy355 9:23 AM Beena Martines RNBraden Scale Lbxci778405/04/2025 9:23 AM Beena Martines, SAL * Patient's Stated Pain GoalAnswerDate of AssessmentAuthorNo pain05/04/2025 3:45 PM Daisy Reinoso RN * High Fall Risk InterventionsQuestionAnswerDate of AssessmentAuthorHigh Fall Risk OaaitrhbscntdYnarmecy57/17/2025 9:23 AM Beena Martines RN * Berkey Fall Risk InterventionsQuestionAnswerDate of AssessmentAuthor Berkey Fall Risk IcntwkmxljnwuRmlyzhdy64/17/2025 9:23 AM Beena Martines RN * Pain Assessment TimerQuestionAnswerDate of AssessmentAuthorRestart Pain Assessment BfcglNol70/17/2025 3:45 PM Daisy Reinoso RN * Sepsis Model ScoresQuestionAnswerDate of AssessmentAuthorEarly Detection of Sepsis Score0.351 4:15 PM Barber YinqEarly Detection of Sepsis Ethop949 4:31 PM Jennifer Yin * Pain AssessmentQuestionAnswerDate of AssessmentAuthorPain LocationWrist 05/04/2025 10:54 AM Ashley Vela COTAPain HiprgorekjxEymmn76/17/2025 10:54 AM Ashley Vela COTAPain NncbhsyfzwbzvCfactwqx54/17/2025 9:23 AM GWENT Beena Price RNResponse to Interventionssleeping lvjekxc6305/04/2025 1:13 AM EDTRobiyonatanonMyesha RNPain TypeAcute pain05/04/2025 10:54 AM Ashley Vela COTAClinical ProgressionNot epumvpq6605/04/2025 9:23 AM Beena Martines RNPain Assessment0-101 10:54 AM Ashley Vela COTA * Pain ScoreAnswerDate of AssessmentAuthor5 - Moderate pain05/04/2025 3:45 PM Daisy Reinoso RN * Deterioration Index ScoreQuestionAnswerDate of AssessmentAuthorDeterioration Index Score32.5205/04/2025 4:15 PM Jennifer Yin * Head, Ears, Eyes, Nose, and Throat (HEENT)QuestionAnswerDate of Assessment AuthorHead, Ears, Eyes, Nose, and Throat (WDL)X1 9:23 AM Beena Martines RNR EyeMildly impaired eblxma3005/04/2025 9:23 AM Beena Martines RNL Eye Mildly impaired qajwds2705/04/2025 9:23 AM Beena Martines RNR EarMildly impaired bsufboq5705/04/2025 9:23 AM Beena Martines RNL EarMildly impaired etiabua8305/04/2025 9:23 AM Beena Martines RN * QuestionAnswerDate of AssessmentAuthorMAP (mmHg)7505/04/2025 12:07 PM Beena Alcaraz RN * Short Portable Mental StatusQuestionAnswerDate of AssessmentAuthorWhat are the date, month, year? 9:23 AM EDTSimone, Beena, RNWhat is the day of the week? 9:23 AM Beena Martines RNWhat is the name of this place? 9:23 AM Beena aMrtines RNWhat is your phone number?0 05/04/2025 9:23 [...] 9:23 AM Beena Martines RNShort Portable Mental Nrbeg589 9:23 AM Beena Martines RN * Fall Risk LevelQuestionAnswerDate of AssessmentAuthorMobility zoneModerate (Yellow Zone)05/04/2025 9:23 AM Beena Martines RNMorse fall risk zone Moderate (Yellow Zone)05/04/2025 9:23 AM Beena Martines RNMental status questionaire zoneModerate (Yellow Zone)05/04/2025 9:23 AM Beena Martines RN * QuestionAnswerDate of ErutkywwzvSzikpwNfR32041/17/2025 12:07 PM Beena Martines RN * QuestionAnswerDate of VvjnpcycvjPhuqecEJ145/6505/04/2025 12:07 PM Beena Martines SAVgfy05. 12:07 PM Beena Martines RNTemp srcTemporal 05/04/2025 12:07 PM Beena Martines NWKlppp4018 12:07 PM Beena Martines QNRede8281/17/2025 12:07 PM Beena Martines RNHeart Rate SourceMonitor 05/04/2025 12:07 PM Beena Martines RNBP LocationLeft wrist05/04/2025 12:07 PM Beena Martines RNBP NcpprsUjtjexovy97/17/2025 12:07 PM Beena Martines, RNPatient ClmqbqeyTjeylqk46/17/2025 12:07 PM Beena Martines RN * QuestionAnswerDate of AssessmentAuthorLevel of XeqtirgaetfwqXsesr77/17/2025 9:23 AM Beena Martines RNCognitionFollows commands;Appropriate judgement;Appropriate safety fhonajpdv08/17/2025 9:23 AM Beena Martines RN LUE Motor ResponseResponds to fytdgivl95/17/2025 9:23 AM Beena Martines RN LLE Motor ResponseResponds to tgoyzozl67/17/2025 9:23 AM Beena Martines RN RUE Motor ResponseResponds to fwwltmci26/17/2025 9:23 AM Beena Martines RN RLE Motor ResponseResponds to nzufiens73/17/2025 9:23 AM Beena Martines, RNR Hand TfifiZabyviln46/17/2025 9:23 AM Beena Martines, RNL Hand GraspModerate 05/04/2025 9:23 AM Beena Martines, RNR Foot BjjppnkevebkStqbfmhi94/17/2025 9:23 AM Beena Martines, RNL Foot NqldmhyczhwtMxdhnkhq56/17/2025 9:23 AM Beena Alcaraz, RNR Foot Plantar NyaxyhfGxayczva95/17/2025 9:23 AM Beena Martines, RNL Foot Plantar ObxnadxHbxoswef39/17/2025 9:23 AM Beena Martines RN Hand Grasp/Motor Function/Sensation AssessmentGrasp;Dorsiflexion;Plantar flexion;Motor response;Mducaurcd62/17/2025 9:23 AM Beena Martines RN * QuestionAnswerDate of AssessmentAuthorBilateral Breath ZznfclLplpy82/17/2025 9:23 AM Beena Martines RNRespiratory HxpabcmJkytdf45/17/2025 9:23 AM EDT Beena Price RNChest LoacudaaxjZnvaromlpbk09/17/2025 9:23 AM Beena Martines RNRespiratory BuqiqqIgorhqtel30/17/2025 9:23 AM Beena Martines RNRespiratory Depth/PndckvMmucjsi01/17/2025 9:23 AM Beena Martines RN * QuestionAnswerDate of AssessmentAuthorCardiac IbaxvfVAE73/17/2025 9:23 AM EDT Beena Price RNCardiac ObrocujnzwDfrvsag38/17/2025 9:23 AM Beena Martines RNTelemetry Monitor GvbyekOs45/17/2025 9:23 AM Beena Martines RNJugular Venous Distention (JVD)No05/04/2025 9:23 AM Beena Martines RNHeart SoundsS1, S205/04/2025 9:23 AM Beena Martines RN * GastrointestinalQuestionAnswerDate of AssessmentAuthorPassing FlatusYes 05/04/2025 9:23 AM Beena Martines RNBowel Sounds (All Quadrants)Active 05/04/2025 9:23 AM Beena Martines RNGastrointestinal (WDL)WDL1 9:23 AM Beena Martines RNAbdomen InspectionSoft;Cydtsdf0805/04/2025 9:23 AM EDT Beena Price RNBowel SoundsAll oharvoerq47/17/2025 9:23 AM Beena Martines RN * Peripheral VascularQuestionAnswerDate of AssessmentAuthorPeripheral Vascular (WDL)WDL1 9:23 AM Beena Martines RNCapillary RefillLess than/equal to 2 seconds (All extremities)05/04/2025 9:23 AM Beena Martines, RNPulses Right radial;Left radial;Right posterior tibial;Left posterior tibial;Right pedal;Left pedal1 9:23 AM Beena Martines RN * RURobert Neurovascular AssessmentQuestionAnswerDate of AssessmentAuthorRight Radial Pulse+ 9:23 AM Beena Martines RN * LURobert Neurovascular AssessmentQuestionAnswerDate of AssessmentAuthorLeft Radial Pulse+ 9:23 AM Beena Martines RN * RLE Neurovascular AssessmentQuestionAnswerDate of AssessmentAuthorRight Posterior Tibial Pulse+ 9:23 AM Beena Martines RNRight Pedal Pulse+ 9:23 AM Beena Martines RN * LLRobert Neurovascular AssessmentQuestionAnswerDate of AssessmentAuthorLeft Posterior Tibial Pulse+ 9:23 AM Beena Martines RNLeft Pedal Pulse + 9:23 AM Beena Martines RN * MusculoskeletalQuestionAnswerDate of AssessmentAuthorMusculoskeletal (WDL)WDL 05/04/2025 9:23 AM Beena Martines RN * PsychosocialQuestionAnswerDate of AssessmentAuthorPsychosocial (WDL)WDL 05/04/2025 9:23 AM Beena Martines RN * QuestionAnswerDate of AssessmentAuthorLast Rpkf9230979/17/2025 12:48 PM EDT Luis Negrete, PCTUrine ColorYellow/straw05/04/2025 12:48 PM EDLuis Faustin, PCTUrine KacecwgjseVgfzw58/17/2025 12:48 PM Luis Cutler, PCT Urine OdorNo odor05/04/2025 12:48 PM Luis Cutler, PCTStool Color Brown;Tan05/04/2025 12:48 PM Luis Cutler, PCTStool AppearanceWatery 05/04/2025 12:48 PM Luis Cutler, PCTBowel MwpehfhikteaMl40/17/2025 12:48 PM Luis Cutler, PCT * Whit Fall RiskQuestionAnswerDate of AssessmentAuthorHistory of Falling, Immediate or Within 3 Yzczqr701/17/2025 9:23 AM Beena Martines RNSecondary Lezvkbybs8795/17/2025 9:23 AM Beena Martines, RNAmbulatory Ged328 9:23 AM Beena Martines RNIntravenous Therapy/Heparin Wzbh904 9:23 AM Beena Martines RNGait/Wwiiukropmud8994/17/2025 9:23 AM Beena Martines RN Mental Rwejth422/17/2025 9:23 AM Beena Martines RNMorse Fall Risk Score25 05/04/2025 9:23 AM Beena Martines RN * Christiano ScaleQuestionAnswerDate of AssessmentAuthorBraden No Risk Interventions Continue to assess patient according to level of care05/04/2025 9:23 AM Beena Alcaraz RNSensory Rursxtjnjht369/17/2025 9:23 AM Beena Martines RN Effhgmpg181/17/2025 9:23 AM Beena Martines, GXZfkdztdt598/17/2025 9:23 AM Beena Alcaraz FTRuggtnvc370/17/2025 9:23 AM Beena Martines RNNutrition3 05/04/2025 9:23 AM Beena Martines, RNFriction and Heykw997 9:23 AM Beena Martines RNBraden Scale Fmiwy532305/04/2025 9:23 AM Beena Martines RN * Charting TypeQuestionAnswerDate of AssessmentAuthorCharting TypeShift tqgruqorcl05/17/2025 9:23 AM Beena Martines RN * CognitionQuestionAnswerDate of AssessmentAuthorDeficitsFully aware of deficits 05/04/2025 10:54 AM Ashley Vela SRLAThyomwhuojkbiApnxmi73/17/2025 10:54 AM Ashley Vela COTAOrientation LevelOriented X41 10:54 AM EDT Ashley Acosta COTAOverall Cognitive LprcrvOIM57/17/2025 10:54 AM Ashley Vela, GREGGAArousal/AlertnessAppropriate responses to dcnfsdb3805/04/2025 10:54 AM Ashley Vela, GREGGAAttention SpanAppears zeefsr8605/04/2025 10:54 AM EDT Ashley Acosta, GREGGAMemoryAppears fhkwbi6705/04/2025 10:54 AM Ashley Vela, GREGGAFollowing CommandsFollows all commands and directions without difficulty 05/04/2025 10:54 AM Ashley Vela COTASafety JudgmentGood awareness of safety owhsbeqvbsr90/17/2025 10:54 AM Ashley Vela COTAAwareness of Errors Good awareness of errors made05/04/2025 10:54 AM Ashley Vela COTAProblem SolvingAble to problem solve qwvgivkewueta54/17/2025 10:54 AM Ashley Vela GALAVIZ * Patient's Stated Pain GoalAnswerDate of AssessmentAuthorNo pain05/04/2025 3:45 PM Daisy Reinoso RN * RepositionedAnswerDate of AssessmentAuthorTurns self05/04/2025 2:00 PM Beena Alcaraz, SAL * GenitourinaryQuestionAnswerDate of AssessmentAuthorUrinary FrequencyAdequate 05/04/2025 9:23 AM Beena Martines RNGenitourinary (WDL)WDL1 9:23 AM Beena Martines, SAL * Patient MonitoringQuestionAnswerDate of AssessmentAuthorFrequency of Checks Twice per hour, hhdabqbm91/17/2025 9:23 AM Beena Martines, SAL * Activity ToleranceQuestionAnswerDate of AssessmentAuthorAmbulation commentsSBA during functional ambulation from EOB<>in-room sink with RW. No LOB noted. 05/04/2025 10:54 AM Ashley Vela COTAStage III (METs 2.0-3.0) - Sitting to Jmxtnvxp26-11 mins05/04/2025 10:54 AM Ashley Vela COTAActivity Tolerance CommentsPt demo'd no SOB or increased fatigue during functional ambulation or dyn standing tasks (ADLs)05/04/2025 10:54 AM Ashley Vela COTA * PrecautionsQuestionAnswerDate of AssessmentAuthorMedical Precautionsfall risk;telemetry;bed alarm;chair alarm;Gqllwgve40/17/2025 10:54 AM Ashley Vela COTA * PlanQuestionAnswerDate of AssessmentAuthorLevel of assist1 zltaxi2805/04/2025 10:54 AM Ashley Vela COTA * Safe EnvironmentQuestionAnswerDate of AssessmentAuthorArm Bands OnID;Fall 05/04/2025 9:23 AM Beena Martines RNSide Rails/Bed Safety2/ 9:23 AM Beena Martines RNBed JjqtwoZpa00/17/2025 9:23 AM Beena Martines RNThe Patient's Environment is AqyzVmh36/17/2025 9:23 AM Beena Martines RN * High Fall Risk InterventionsQuestionAnswerDate of AssessmentAuthorHigh Fall Risk UyqnlabmoqytvSjhrzrlh02/17/2025 9:23 AM Beena Martines RN * MobilityQuestionAnswerDate of HlpmmggpdaLymxicZkkqztpqvi86/17/2025 9:23 AM Beena Alcaraz RNActivity PerformedResting in bed05/04/2025 9:23 AM Beena Martines RNLevel of AssistanceModified independent, requires aide device or extra time05/04/2025 9:23 AM Beena Martines RNHead of Bed ElevatedSelf regulated 05/04/2025 9:23 AM Beena Martines RNHeels/FeetHeels elevated off bed 05/04/2025 9:23 AM Beena Martines RNRange of MotionActive;All extremities 05/04/2025 9:23 AM Beena Martines RNAnti-Embolism Devices Bilateral;Sequential compression devices, below knee05/04/2025 9:23 AM Beena Alcaraz RNAnti-Embolism KxgnukgfmadwHlo08/17/2025 9:23 AM Beena Martines RNPatient's mobility zoneZone 9:23 AM Beena Martines RN Positioning FrequencyAble to turn self05/04/2025 9:23 AM Beena Martines RN * HygieneQuestionAnswerDate of AssessmentAuthorHygieneBathed;Ted care05/04/2025 11:33 AM Ashley Vela COTAOral CareTeeth brushed;Mouth aragdc8705/04/2025 11:33 AM Ashley Vela COTALevel of AssistanceMinimal nvipvk0305/04/2025 11:33 AM Ashley Vela COTAIs Patient Total Care?No05/04/2025 11:33 AM Ashley Mcdowell COTAIncontinence Protective DevicesAbsorbent pad05/04/2025 9:23 AM Beena Martines RNCHG (Chlorhexidine Gluconate) JylvuixGaki22/17/2025 11:33 AM Ashley Vela COTA * PrecautionsQuestionAnswerDate of AssessmentAuthorPrecautions Aspiration;Fall;Udebgxca38/17/2025 9:23 AM Beena Martines RN * Comfort and Environment InterventionsQuestionAnswerDate of AssessmentAuthor ComfortRepositioned;Lotion (Comment);Powder (Comment);Gown tpvwlmo1005/04/2025 11:33 AM Ashley Vela COTA * AM-PAC 6 ClicksQuestionAnswerDate of AssessmentAuthorTotal Score OT AMPAC21 05/04/2025 10:54 AM Ashley Vela COTAToileting, which includes using the toilet,bedpan,or urinal?310 10:54 AM Ashley Vela COTAEating meals?410 10:54 AM EDTGray, Ashley, COTABathing(Including washing,rinsing,drying)? 10:54 AM Ashley Vela COTATaking care of personal grooming such as brushing teeth? 10:54 AM Ashley Vela, COTAPutting on and taking off regular lower body clothing? 10:54 AM Ashley Vela, COTAPutting on and taking off regular upper body clothing? 10:54 AM Ashley Vela COTA * Berkey Fall Risk InterventionsQuestionAnswerDate of AssessmentAuthor Berkey Fall Risk KmubxjipvanqzHwmaapsd25/17/2025 9:23 AM Beena Martines RN * OT Last VisitQuestionAnswerDate of AssessmentAuthorOT Received [id number] 05/04/2025 10:54 AM Ashley Vela COTA * Static Standing BalanceQuestionAnswerDate of AssessmentAuthorStatic Standing- Balance SupportRight upper extremity supported;Left upper extremity supported;With kuxpru3305/04/2025 10:54 AM Ashley Vela COTAStatic Standing- Level of AssistanceClose bimepjomaiu16/17/2025 10:54 AM Ashley Vela COTA * GroomingQuestionAnswerDate of AssessmentAuthorGrooming Commentsto complete facial care05/04/2025 10:54 AM Ashley Vela COTAGrooming Where Assessed Standing oqugftnt79/17/2025 10:54 AM Ashley Vela COTAGrooming Level of OiuwofnsayUpeir90/17/2025 10:54 AM Ashley Vela COTA * UE BathingQuestionAnswerDate of AssessmentAuthorUE Bathing Commentsto complete UBB1 10:54 AM Ashley Vela COTAUE Bathing Where AssessedSitting ejxrlroj07/17/2025 10:54 AM Ashley Vela COTAUE Bathing Level of AqnynwgiuyQsjsa74/17/2025 10:54 AM Ashley Vela COTA * LE BathingQuestionAnswerDate of AssessmentAuthorLE Bathing Commentsto complete LBB & ted-gtvhmyq9905/04/2025 10:54 AM Ashley Vela COTALE Bathing Where AssessedStanding sinkside;Sitting mexjvoba11/17/2025 10:54 AM Ashley Vela COTALE Bathing Level of EzxxtlpajaUgdlk94/17/2025 10:54 AM Ashley Vela COTA * UE DressingQuestionAnswerDate of AssessmentAuthorUE Dressing Commentsto doff/don gowns05/04/2025 10:54 AM Ashley Vela COTAUE Dressing Where AssessedSitting in chair05/04/2025 10:54 AM Ashley Vela COTAUE Dressing Level of PetccwzqzsDboqc97/17/2025 10:54 AM Ashley Vela COTA * LE DressingQuestionAnswerDate of AssessmentAuthorLE Dressing Commentsto doff/don B/socks1 10:54 AM Ashley Vela COTALE Dressing Where AssessedSitting in chair05/04/2025 10:54 AM Ashley Vela COTASock Level of RzhiutdnkvRcaqw01/17/2025 10:54 AM Ashley Vela COTA * Dynamic Standing BalanceQuestionAnswerDate of AssessmentAuthorDynamic Standing Balance-Level of AssistanceClose tnbwmnmfkij30/17/2025 10:54 AM Ashley Vela COTADynamic Standing-CommentsSBA for safety during LBB tasks at sink. 05/04/2025 10:54 AM Ashley Vela COTADynamic Standing-Balance SupportWith device;Unilateral upper extremity hwuebbupc58/17/2025 10:54 AM Ashley Vela COTA * Dynamic Sitting BalanceQuestionAnswerDate of AssessmentAuthorDynamic Sitting Balance-Level of AssistanceDistant /17/2025 10:54 AM Ashley Vela COTADynamic Sitting-Balance SupportUnilateral upper extremity supported;Feet tbsljnkke79/17/2025 10:54 AM Ashley Vela COTADynamic Sitting-BalanceLateral lean;Forward lean;Reaching for pktzjsc4705/04/2025 10:54 AM Ashley Vela COTA * Other ActivityQuestionAnswerDate of AssessmentAuthorOther Activity 1Pt in recliner post session with call light & needs accessible. Chair alarm yugxfspyx18/17/2025 10:54 AM Ashley Vela COTA * Functional Standing ToleranceQuestionAnswerDate of AssessmentAuthorTime2-3 min yavsbvfjfe89/17/2025 10:54 AM Ashley Vela COTAActivityADL routine at sink 05/04/2025 10:54 AM Ashley Vela COTAFunctional Standing Tolerance CommentsPt stood intermittently to complete ADL tasks wit no s/s or c/o increased fatigue or SOB.05/04/2025 10:54 AM Ashley Vela COTA * GeneralQuestionAnswerDate of AssessmentAuthorSubjective I'm supposed to go home today. 05/04/2025 10:54 AM Ashley Vela COTAFamily/Caregiver Present No05/04/2025 10:54 AM Ashley Vela COTAResponse to Previous Treatment Patient with no complaints from previous rvezmlf7705/04/2025 10:54 AM Ashley Vela COTATreatment Duration (min)391 10:54 AM Ashley Vela COTA * Bed Mobility 1QuestionAnswerDate of AssessmentAuthorBed Mobility Comments 1 Assist required to bring trunk rueqjfo6405/04/2025 10:54 AM Ashley Vela COTABed Mobility From 7Leasjs2705/04/2025 10:54 AM Ashley Vela COTABed Mobility Type 1To05/04/2025 10:54 AM Ashley Vela COTABed Mobility to 1 Short sit05/04/2025 10:54 AM Ashley Vela COTALevel of Assistance 1Minimum assistance;Minimal verbal cues05/04/2025 10:54 AM Ashley Vela COTA * Transfer 1QuestionAnswerDate of AssessmentAuthorTransfer Device 1rolling kqhpxd6705/04/2025 10:54 AM EDTGratiara Ashley, COTATransfer From 1Bed;Sit 05/04/2025 10:54 AM EDTGratiara Ashley, COTATransfer Type 1To05/04/2025 10:54 AM EDTGray, Ashley, COTATransfer to 9Zkory0605/04/2025 10:54 AM EDTGratiara Ashley, COTATechnique 1Sit to stand05/04/2025 10:54 AM EDTGratiara Ashley, COTATransfer Level of Assistance 1Close rupexfqxpwg76/17/2025 10:54 AM EDTGray, Ashley, GALAVIZ * Transfers 2QuestionAnswerDate of AssessmentAuthorTransfer Device 2rolling zrxgok9905/04/2025 10:54 AM EDTGratiara Ashley, COTATrials/Comments 2cue for hand placement with descent for ajjufj8005/04/2025 10:54 AM EDTGratiara Ashley, GALAVIZ Transfer From 3Zxkic37 10:54 AM EDTGratiara Ashley, COTATransfer Type 2To 05/04/2025 10:54 AM EDTGratiara Ashley, COTATransfer to 2Sit;Chair with arms 05/04/2025 10:54 AM EDTGratiara Ashley, COTATechnique 2Stand to sit05/04/2025 10:54 AM EDTGratiara Ashley, COTATransfer Level of Assistance 2Close supervision 05/04/2025 10:54 AM EDTGratiara Ashley, GALAVIZ * Transfers 3QuestionAnswerDate of AssessmentAuthorTransfer Device 3rolling dtpzay7605/04/2025 10:54 AM EDTGratiara Ashley, COTATrials/Comments 3SBA during STS throughout ADL routine in stance at sink. Cues for safety.05/04/2025 10:54 AM EDTGratiara Ashley, COTATransfer From 6Ubtxb85 10:54 AM EDTGratiara Ashley, COTATransfer Type 3To and from05/04/2025 10:54 AM EDTGratiara Ashley, GALAVIZ Transfer to 3Sit;Chair without arms05/04/2025 10:54 AM Ashley Vela COTA Technique 3Sit to stand;Stand to sit05/04/2025 10:54 AM Ashley Vela COTA Transfer Level of Assistance 3Close wlunjohjjup43/17/2025 10:54 AM Ashley Vela COTA * Static Sitting BalanceQuestionAnswerDate of AssessmentAuthorStatic Sitting- Balance SupportFeet /17/2025 10:54 AM Ashley Vela COTAStatic Sitting-Level of YnncdeupnxJepgbbrgfbi13/17/2025 10:54 AM Ashley Vela COTA * OT AssessmentQuestionAnswerDate of AssessmentAuthorOT Assessment/BALWINDER SummaryPt doing well, waiting to hear about d/c plan for . Pt was able to stand to complete ADLs, self-initiating rest breaks prn. No c/o pain in R/wrist or forearm weight bearing or otherwise.05/04/2025 10:54 AM Ashley Vela COTA OT Education/Commentssafety awareness, EC/WS05/04/2025 10:54 AM Ashley Vela COTAPrognosisGood1 10:54 AM Ashley Vela COTA Evaluation/Treatment TolerancePatient tolerated treatment well05/04/2025 10:54 AM Ashley Vela COTAMedical Staff Made OxijeBwo92/17/2025 10:54 AM Ashley Mcdowell COTA * Rosangela Coma ScaleQuestionAnswerDate of AssessmentAuthorBest Eye Response Ekgfwqwuvel47/17/2025 9:23 AM Beena Martines RNBest Verbal ResponseOriented 05/04/2025 9:23 AM Beena Martines RNBest Motor ResponseFollows commands 05/04/2025 9:23 AM Beena Martines RNGlasgow Coma Scale Kpnan1978/17/2025 9:23 AM Beena Martines RN * Pain AssessmentQuestionAnswerDate of AssessmentAuthorPain LocationWrist 05/04/2025 10:54 AM Ashley Vela COTAPain FshdewhncvnOphuv62/17/2025 10:54 AM Ashley Vela COTAPain MovzstwwlqxzcUgjiseuu69/17/2025 9:23 AM Beena Alcaraz RNResponse to Interventionssleeping ypwiucj0405/04/2025 1:13 AM Myesha Pugh RNPain TypeAcute pain05/04/2025 10:54 AM Ashley Vela COTAClinical ProgressionNot kqnndai8705/04/2025 9:23 AM Beena Martines RNPain Assessment0-101 10:54 AM Ashley Vela COTA * NutritionQuestionAnswerDate of AssessmentAuthorDiet TypeHeart healthy 05/04/2025 9:23 AM Beena Martines RNFeedingAble to feed self05/04/2025 9:23 AM Beena Martines AYGxogkessPceb46/17/2025 9:23 AM Beena Martines RN * Respiratory InterventionsQuestionAnswerDate of AssessmentAuthorRespiratory Interventions PerformedCough and deep amstpkh93/17/2025 9:23 AM Beena Martines RN * Cough and Deep BreatheQuestionAnswerDate of AssessmentAuthorCough and Deep WgasccbAxy54/17/2025 9:23 AM Beena Martines RN * IntegumentaryQuestionAnswerDate of AssessmentAuthorSkin IntegrityOther (Comment)05/04/2025 9:23 AM Beena Martines RNIntegumentary (WDL)X1 9:23 AM Beena Martines RN * Pain ScoreAnswerDate of AssessmentAuthor5 - Moderate pain05/04/2025 3:45 PM Daisy Reinoso RN * Environment of Care ChecklistQuestionAnswerDate of [...] physical deficits and behaviorsthat affect risk of falls;[place] fall precautions as indicated by assessment;Educate patient/family on patient safety, including physical limitations;Instruct patient to call for assistance with activity based on assessment;Modify environment to reduce risk of injury;Consider OT/PT consult to assist with strengthening/ubqhjfqf76/17/2025 9:23 AM Beena Martines RN documented as of this encounter Mental Status * Rosangela Coma ScaleQuestionAnswerEntry DateAuthorBest Eye ResponseSpontaneous 05/04/2025 9:23 AM Beena Martines RNBe Verbal HltzynvsKakhoggb35/17/2025 9:23 AM Beena Martines RNBe Motor ResponseFollows jpipagwy89/17/2025 9:23 AM Beena Martines RNGlasgow Coma Scale Awtbl6897/17/2025 9:23 AM Beena Martines RN documented in this encounter Plan of Treatment DateTypeDepartmentCare Team (Latest Contact Info)Ensffnzmtoc21/05/2025 10:00 AM ESTOffice Visit [facility] [place] [address] [place] [address] Hay William MD [address] [place] [id number] documented as of this encounter Procedures Procedure NamePriorityDate/TimeAssociated DiagnosisCommentsCARDIAC DEVICE CHECK - REMOTE - NKIPujnrbl34/17/2025 12:00 AM EDTdocumented in this encounter Results * Cardiac device check - Remote ICD (05/04/2025 12:00 AM EDT)Anatomical Region LateralityModalityOtherSpecimen (Source)Anatomical Location / Laterality Collection Method / VolumeCollection TimeReceived Time05/04/2025 Narrative Authorizing ProviderResult TypeResult StatusPadevin Raymond MDCV IMPLANTABLE CARDIAC DEVICE PROCEDURESFinal Result documented in this encounter Visit Diagnoses Not on filedocumented in this encounter Care Teams Team MemberRelationshipSpecialtyStart DateEnd Date Rudy Guerra MD [address] [place] [address] PCP - Lzawxvz89/16/22documented as of this encounter
--- OUTSIDE RECORDS SUMMARY | 2025-05-14 14:57 | XMS_ITS | Encounter Summary ---
Author Organization [facility] Address [address] [place] [address] Care Team Providers Care Mold Maker Helper Name Role Phone Rudy Guerra MD Primary Care Provider [phone] Reason for Visit * ReasonOnset DateCommentsHF post discharge call and inpt survey sent.05/07/2025 Encounter Details DateTypeDepartmentCare Team (Latest Contact Info)Pndpucqejeo04/20/2025Telephone [facility] V[facility] Lab [address] [place] [address] Yelena Lara RN HF post discharge call and inpt survey sent. Social History Tobacco UseTypesPacks/DayYears UsedDateSmoking Tobacco: FormerCigarettes Smokeless Tobacco: NeverAlcohol UseStandard Drinks/TogjIfhcutbcJab75 (1 standard drink = 0.6 oz pure alcohol)occasionalAHC UtilitiesAnswerDate RecordedIn the past 12 months has the electric, gas, oil, or water [employer] threatened to shut off services in your [...] were you homeless or living in a long term (including now)? No04/19/2025Hunger Vital SignAnswerDate RecordedWithin the past 12 months, you worried that your food would run out before you got the money to buymore.Never true04/19/2025Ran Out of Food in the Last YearNot on file04/19/2025Sex and Gender InformationValueDate RecordedSex Assigned at RktetDmhc96/06/2025 8:51 AM EDTLegal GltDbso2401/14/2022 10:53 PM EDTGender TorfzzymVhck16/06/2025 8:51 AM EDT Sexual OrientationHeterosexual or Bxwntdft05/06/2025 8:51 AM EDTdocumented as of this encounter Miscellaneous Notes * Telephone Encounter - Yelena Lara RN - 05/07/2025 11:17 AM EDT Discharge date: 05/04/25 Call date: 05/07/25 Spoke with: patient HF Follow-up date: 05/14/25 Med reconciliation completed: yes Questions/Concerns: Per patient he is feeling well and denied any SOB or CP. Patient stated he is eating, drinking, moving his bowels and urinating well. Patient stated his HHC was denied and pt is requesting for our SWteam to look into this. Home meds reviewed with pt. Gravity Prospecting Operator instructed pt to hold on to his amoxicillin that was given to him after his watchman procedure for dental prophylaxis until he is seen for his 6 mo follow up. Patient is aware of his HFU as well as the location. No questions or concerns at this time. documented in this encounter Plan of Treatment DateTypeDepartmentCare Team (Latest Contact Info)Dacugtsefjx61/05/2025 10:00 AM ESTOffice Visit [facility] [address] [place] [address] Hay William MD [address] [facility] [place] [phone] documented as of this encounter Visit Diagnoses Not on filedocumented in this encounter Care Teams Team MemberRelationshipSpecialtyStart DateEnd Date Rudy Guerra MD [address] [place] [address] PCP - Paovgei64/16/22documented as of this encounter
--- OUTSIDE RECORDS SUMMARY | 2025-05-14 14:57 | XMS_ITS | Clinical Summary ---
Author Organization [facility] Address [address] [place] [address] Care Team Providers Care Manufacturing Laborer Name Role Phone Rudy Guerra MD Primary Care Provider [phone] Allergies No known active allergies Medications MedicationSigDispense QuantityRefillsLast FilledStart DateEnd DateStatus sacubitril-valsartan (Entresto) 49-51 MG tablet Take 1 tablet by mouth in the morning and 1 tablet in the evening.02/19/2023 Active Farxiga 10 MG Take 10 mg by mouth 1 (one) time each day at the same timeActive spironolactone (Aldactone) 25 MG tablet Take 25 mg by mouth in the morning.08/24/2022ctive atorvastatin (Lipitor) 40 MG tablet Take 40 mg by mouth 1 (one) time each day at the same timeActive Dupixent 300 MG/2ML injection Inject 300 mg under the skin every 14 (fourteen) days10/08/2022ctive metoprolol succinate XL (Toprol-XL) 50 MG 24 hr tablet Take 50 mg by mouth Daily06/29/2023ctive Eliquis 5 MG tablet Take 5 mg by mouth in the morning and 5 mg before bedtime.4Active allopurinol (Zyloprim) 300 MG tablet Indications:Gout, unspecified cause, unspecified chronicity, unspecified site TAKE 1 TABLET BY MOUTH DAILY 270 tablet 5Active fluticasone (Flonase) 50 MCG/ACT nasal spray Indications:Mild persistent asthma without complication (HCC)instill 1 spray IN EACH NOSTRIL DAILY 16 g 5Active albuterol HFA 90 mcg/act inhaler Indications:Mild persistent asthma without complication (HCC)Inhale 2 puffs every 4 (four) hours if needed for wheezing 8.5 g 5Active Fluticasone-Salmeterol 500-50 MCG/ACT aerosol powder Indications:Mild persistent asthma without complication (HCC)INHALE 1 PUFF BY MOUTH IN THE MORNING then INHALE 1 PUFF BY MOUTH BEFORE bedtime 60 each 5Active Active Problems ProblemNoted DateDiagnosed DatePAF (paroxysmal atrial fibrillation)07/22/2023 Overview (12/12/2024): Documented on 08/24/2023 by AMINATA ALEXANDER Assessment & Plan (12/12/2024 9:03 PM EDT): In NSR and continue medication. Follow up with cardiology. Bleeding problems on Eliquis and recommend device such as Watchman device to stop anticoagulation. Assessment & Plan (07/22/2023 3:40 PM EST): In NSR and continue medication. Follow up with cardiology. Allergic rhinitis due to djhoxk0103/02/2023 Assessment & Plan (07/22/2023 3:39 PM EST): Symptoms controlled with medication and continue. Chronic zperispjkuag64/15/2023Nasal polyp03/02/2023ICD (implantable cardioverter-defibrillator) in place09/15/2022 Overview (03/02/2023): Last Assessment & Plan: No DFT since implantation RTC q 6 months of device interrogation and pt is due for interrogation this coming march Nonischemic nnwvbqafzhwxcl15/14/2023 Overview (03/02/2023): Added automatically from request for surgery [id number] Last Assessment & Plan: As above Seasonal allergic mqntiuey92/13/2023epressive ehlbpbsb49/13/2023yslipidemia 08/31/2022 Overview (03/02/2023): Last Assessment & Plan: Continue statin Ekqgvncfqyl77/13/2023Steatosis of liver08/31/2022Vitamin D donkrwttwl76/13/2023 Chronic HFrEF (heart failure with reduced ejection fraction)07/06/2022 Overview (03/02/2023): Last Assessment & Plan: [facility] II- currently euvolemic without exacerbation Continue GDMT- ASA, lipitor, toprol, farxiga, aldactone andwill increase entresto to 49-51 mg bid Repeat [...] Follow up with cardiology. Coronary artery disease involving [place] coronary artery of [place] heart without angina zjtstetf04/19/2022 Overview (03/02/2023): Last Assessment & Plan: Coronary artery disease is stable Continue GDMT- ASA lipitor and toprol- Pt tolerating cardiac rehab well andstates he has 1 more week of rehab continue risk factor modifications- heart healthy diet, regular exercise as tolerated and continue all medications. Mild persistent asthma without ewqmjcmxbypp26/11/2013 Assessment & Plan (12/12/2024 9:02 PM EDT): No SOB and continue advair. Use albuterol PRN. Assessment & Plan (07/22/2023 3:40 PM EST): No SOB and continue advair. Use albuterol PRN. Benign essential xcpyimlveudj15/09/2011 Assessment & Plan (12/12/2024 9:02 PM EDT): BP controlled and monitor PRN. Assessment & Plan (07/22/2023 3:39 PM EST): BP controlled and monitor PRN. Kzvmomsnepoedg59/15/2008Malignant tumor of monlyhpf52/15/2008 Resolved Problems ProblemNoted DateDiagnosed DateResolved DateChronic History of malignant neoplasm of uorqvvle69/Hypertension / Overview (03/02/2023): Last Assessment & Plan: Hypertension is well controlled Continue all meds Renal function has been stable Hiffgkvqvilxoz55New onset of congestive heart failure Overview (03/02/2023): Last Assessment & Plan: -per cathresults, will consider adding SGLT2 and MRA if repeat echo in 1 month does not show improved systolic function -EF 25%, discharged with lifevest -pending repeat echo 1 month may consider 3 month echo, from there if EF not >35% he will need an ICD, pending future visit ECG if he has wide complexes he may no BiV ICD -continue zfxhcyLY86zk, entresto 24-26, will add medications pending echo Syncope and hkdbqesm63 Overview (03/02/2023): Added automatically from request for surgery [id number] Encounters DateTypeDepartmentCare AsbmTvxyygbyheh80/11/2025Refill [facility] [address] [place] [address] Rudy Guerra MD Mild persistent asthma without complication (HCC)from Last 3 Months Immunizations ImmunizationAdministration DatesNext KlbKMK4509/01/2021fizer Purple Cap SARS-CoV-2 Dsbzoetzzeg99/26/2021,2020 Family History Medical HistoryRelationNameCommentsCOPDFatherDiabetesMotherHeart diseaseMother StrokeMotherHeart diseaseSiblingRelationNameStatusCommentsFatherDeceasedMother DeceasedSibling Social History Tobacco UseTypesPacks/DayYears UsedDateSmoking Tobacco: NeverSmokeless Tobacco: CurrentChew Tobacco Cessation:Ready to Q uit: Not Asked; Counseling Given: Not Answered Alcohol UseStandard Drinks/WeekCommentsYes6 (1 standard drink = 0.6 oz pure alcohol)caffeine intake: 1-2 cups per day of coffee/teaPHQ-2AnswerDate Recorded Patient Health Questionnaire-2 Dfape040Sex and Gender InformationValue Date RecordedSex Assigned at BirthNot on fileLegal TxpHmnt9009/30/2022 6:42 PM EDT Gender IdentityNot on fileSexual OrientationNot on file Last Filed Vital Signs Vital SignReadingTime TakenCommentsBlood Kgxthqte825/3407 11:01 AM EDT Tsrnl841602/05/2025 11:01 AM WUGUooejwctayu41.6 ??C (97.8 ??F)12/12/2024 3:08 PM EDTRespiratory Qgtu059512/12/2024 3:08 PM EDTOxygen Rolaxdnryn41%12/12/2024 3:08 PM EDTInhaled Oxygen Concentration--Hjgikn51.3 kg (188 lb)02/05/2025 11:01 AM EYYInqxwj491.7 cm (5' 8 )02/05/2025 11:01 AM EDTBody Mass Index28.59002/05/2025 11:01 AM EDT Plan of Treatment [place] [id number] Care Teams Team MemberRelationshipSpecialtyStart DateEnd Date Rudy Guerra MD PCP - [facility]01/17/24
--- OUTSIDE RECORDS SUMMARY | 2025-05-14 14:59 | XMS_ITS | Clinical Summary ---
Author Organization [facility] Address [facility] [place] [address] Care Team Providers Care Recycling Director Name Role Phone Arturo PIMENTEL MD, Dakota Franco Primary Care Provider [phone] Allergies No known active allergies Medications MedicationSigDispense QuantityRefillsLast FilledStart DateEnd DateStatus simvastatin 40 mg tablet Take 40 mg by mouth once daily.Active fluticasone 50 mcg/actuation nasal spray Use 1 [place] in each nostril once daily.Active lisinopril-hydrochlorothiazide 20-12.5 mg per tablet Take 1 tablet by mouth once daily.Active fluticasone-salmeterol (ADVAIR DISKUS) 250-50 mcg/dose DsDv Inhale 1 Puff as instructed twice daily. Rinse and gargle mouth with water after each use. 1 Inhaler ctive albuterol 90 mcg/actuation Aero Inhale 1-2 Puffs as instructed four times daily as needed (for wheezing and shortness of breath). 1 Inhaler ctive Active Problems ProblemNoted DateDiagnosed GbdyDxulrr91/11/2013 Immunizations ImmunizationAdministration DatesNext Dueinfluenza vaccine, unspecified wyvgldofmqb21/11/2013 Family History Medical HistoryRelationCommentsCancerBrotherprostateNoneBrotherhas 6 brothers EmphysemaFatherCerebral EmbolismMotherDiabetesMotherHypertensionMotherNoneSister RelationStatusCommentsBrotherFatherMotherSister Social History Tobacco UseTypesPacks/DayYears UsedDateSmoking Tobacco: FormerCigarettes0.53 03/03/1974 - 03/03/1977Smokeless Tobacco: FormerAlcohol UseStandard Drinks/Week BzjruluaEdd18 (1 standard drink = 0.6 oz pure alcohol)Sex and Gender Information ValueDate RecordedSex Assigned at BirthNot on fileLegal ImuKool57/02/2012 10:16 AM ESTGender IdentityNot on fileSexual OrientationNot on file Last Filed Vital Signs Vital SignReadingTime TakenCommentsBlood Dtwphetm997/85007/29/2012 8:56 AM EST Ocdvw223307/29/2012 8:56 AM YSBXojzpcddmnr91.3 ??C (97.3 ??F)07/29/2012 8:56 AM ESTRespiratory Mfxs273607/29/2012 8:56 AM ESTOxygen Syopgejcnb25%07/29/2012 8:56 AM ESTInhaled Oxygen Concentration--Hbqogu56.9 kg (200 lb 6.4 oz)04/19/2012 1:48 PM KWATphbuw715.3 cm (5' 6.65 )04/19/2012 1:48 PM EDTBody Mass Index31.71 04/19/2012 1:48 PM EDT Plan of Treatment Health MaintenanceDue DateLast DoneCommentsAbdominal Aortic Aneurysm Screening 6Anxiety Bgfbygclb25/04/1974Depression Cwyapnwht85/04/1974Hepatitis C Sbjyhdgyy95/04/1974DTaP,Tdap,Td Vaccine (1 - Tdap)09/19/1974Lipid Screening 09/19/1990CT Dpvutyvvdphn78/04/2001Cologuard (FIT-DNA)09/19/2000Colonoscopy 09/19/2000Colorectal Cancer Uiprhxyul51/04/2001Fecal Occult Blood09/19/2000 Ezzzmphquzule10/04/2001Pneumococcal Vaccine: 50+ (1 of 1 - PCV)09/19/2005 Shingrix Vaccine (1 of 2)09/19/2005Diabetes Yyrpjgboh95/05/dvance Directive Tsveozzgcd28/01/2025Covid-19 Vaccine (1 - 2024- season)2025 Influenza Vaccine (#1)5007/29/2012RSV Vaccine (1 - 1-dose 75+ series) 09/19/2030 Procedures Procedure NamePriorityDate/TimeAssociated DiagnosisCommentsBASIC METABOLIC PANEL STAT03/23/2012 9:22 AM EDT Pre-op testing from Last 3 Months or Most Recently Relevant to Health Maintenance Results * (ABNORMAL) BASIC METABOLIC PNL (03/23/2012 9:22 AM EDT)ComponentValueRef Range Test MethodAnalysis TimePerformed AtPathologist ArxabsdtpQyrbxxy543(H)65 - 100 mg/dLPROM[facility] FNTMCKUJBIXDP5395 - 25 mg/dLPROM[facility]ICA [facility]AY [facility]ARK [facility] LABORATORYCreatinine1.010.70 - 1.40 mg/dLPROMEDICA BAY PARK [facility] LABORATORY Jglxcm522826 - 146 mmol/LCSELECT [facility]ICAL [facility] LABORATORYPotassium3.83.5 - 5.0 mmol/LCSELECT [facility]ICAL [facility]TY [facility] NIUPAKPMOODiriyhsi4144 - 110 mmol/LCSELECT [facility] KUHLZKJYOZWB93391 - 32 mmol/LCSELECT [facility] LABORATORYAnion Cnd952 - 15 mmol/LCSELECT [facility]ICAL [facility]TY [facility] VOHDJRAHTNGyhbycp43.18.5 - 10.5 mg/dL [facility] LABORATORYeGFR->60PROM[facility] LABORATORYeGFR-All Other Races>60.[facility] LABORATORYComment: eGFR (Estimated GFR) Units of measure: mL/min/1.73 meters squared eGFR is derived from the reexpressed MDRD Study equation using the following parameters: serum creatinine, age, gender and race. The creatinine assay has been calibrated to be traceable to IDMS. An eGFR <60 mL/min/1.73m2 for >3 months is consistent with chronic kidney disease. Refer to KDOQI guidelines for clinical interpretation. Specimen (Source)Anatomical Location / LateralityCollection Method / Volume Collection TimeReceived TimeBlood specimen (specimen)BLOOD SPECIMEN / Unknown 03/23/2012 9:22 AM EDT03/23/2012 9:24 AM EDT Narrative Authorizing ProviderResult TypeResult StatusPeter Mariaelena KLEINLABORATORYFinal ResultPerforming OrganizationAddressCity/State/ZIP CodePhone Number [facility] [address] [place] [address] from Last 3 Months or Most Recently Relevant to Health Maintenance Insurance Care Teams Team MemberRelationshipSpecialtyStart DateEnd Date Dakota Morris II, MD PCP - GeneralInternal Medicine02/18/12
--- OUTSIDE RECORDS SUMMARY | 2025-05-14 15:00 | XMS_ITS | Clinical Summary ---
Author Organization [facility] Address [address] [place] [address] Care Team Providers Care Nuclear Physician Name Role Phone Rudy King MD Primary Care Provider [phone] Allergies No known active allergies Medications MedicationSigDispense QuantityRefillsLast FilledStart DateEnd DateStatus albuterol 90 mcg/actuation inhaler Inhale 1 puff 2 times daily.Active fluticasone (Flonase) 50 mcg/actuation nasal spray Administer 1 spray into each nostril two times daily. Shake gently. Before first use, prime pump. After use, clean tip and replace cap.Active allopurinol (Zyloprim) 300 mg tablet Take 300 mg by mouth in the morning.Active Dupixent Syringe 300 mg/2 mL syringe injection Inject 300 mg under the skin every 14 (fourteen) days.5Active fluticasone propion-salmeteroL (Advair Diskus) 500-50 mcg/dose diskus inhaler Inhale 1 puff two times daily.3Active spironolactone (Aldactone) 25 mg tablet Indications:Chronic systolic heart failure (CMS/HCC)Take 1 tablet (25 mg) by mouth in the morning. 90 tablet 301/959208/6Active atorvastatin (Lipitor) 40 mg tablet Indications:Coronary artery disease involving stebbins coronary artery of stebbins heart without angina pectorisTake 1 tablet (40 mg) by mouth at bedtime. 90 tablet 5Active aspirin 81 mg chewable tablet Indications:Presence of Watchman left atrial appendage closure deviceChew 1 tablet (81 mg) with breakfast. 90 tablet 308//328296/6Active clopidogrel (Plavix) 75 mg tablet Indications:Presence of Watchman left atrial appendage closure deviceTake 1 tablet (75 mg) by mouth in the morning. 90 tablet 308//6Active colchicine 0.6 mg tablet Indications:Heart failure with reduced ejection fraction (CMS/HCC)Take 1 tablet (0.6 mg) by mouth in the morning. 30 tablet /6Active furosemide (Lasix) 20 mg tablet Indications:Heart failure with reduced ejection fraction (CMS/HCC)Take 2 tablets (40 mg) by mouth if needed each day (for legs swelling or weight gain >2-3 lbs a day). 30 tablet /5Active dapagliflozin propanediol (Farxiga) 10 mg Indications:Chronic systolic congestive heart failure (CMS/HCC)Take 1 tablet (10 mg) by mouth once daily as directed. 90 tablet /6Active metoprolol succinate XL (Toprol-XL) 25 mg 24 hr tablet Indications:Heart failure with reduced ejection fraction (CMS/HCC)Take 0.5 tablets (12.5 mg) by mouth once daily as directed. Do not crush or chew. 45 tablet /6Active dapagliflozin propanediol (Farxiga) 10 mg Indications:Chronic systolic congestive heart failure (CMS/HCC)Take 1 tablet (10 mg) by mouth once daily as directed. 90 tablet Discontinued(Reorder) sacubitril-valsartan (Entresto) 97-103 mg tablet Indications:Chronic systolic heart failure (CMS/HCC),Primary hypertensionTake 1 tablet by mouth two times daily. 180 tablet /Discontinued(Stop Taking at Discharge) metoprolol succinate XL (Toprol-XL) 50 mg 24 hr tablet Indications:Chronic systolic heart failure (CMS/HCC)Take 1 tablet (50 mg) by mouth once daily as directed. Do not crush or chew. 90 tablet /Discontinued(Stop Taking at Discharge) amoxicillin (Amoxil) 500 mg tablet Indications:Presence of Watchman left atrial appendage closure deviceTake 4 tablets (2,000 mg) by mouth 1 (one) time if needed (30-60 minute prior to dental procedures)for up to 20 doses. 20 tablet Discontinued(Stop Taking at Discharge) metoprolol succinate XL (Toprol-XL) 25 mg 24 hr tablet Indications:Heart failure with reduced ejection fraction (CMS/HCC)Take 0.5 tablets (12.5 mg) by mouth in the morning. Do not crush or chew. 15 tablet Discontinued(Reorder) doxycycline (Vibramycin) 100 mg capsule Indications:Heart failure with reduced ejection fraction (CMS/HCC)Take 1 capsule (100 mg) by mouth two times daily for 11 doses. Take with at least 8 ounces (large glass) of water, do not lie down for 30 minutes after 11 capsule Expired Additional Information Patient not taking.Reported on 05/14/2025 Active Problems ProblemNoted DateDiagnosed DateCardiogenic shock05/03/2025 Assessment & Plan (05/03/2025 12:13 PM EDT): - Required Harvard Stacy and dobutamine in ICU. - Improving. ATN (acute tubular necrosis)05/03/2025 Assessment & Plan (05/03/2025 12:13 PM EDT): - Due to shock. - Required CRRT in ICU. - Monitor Crea while off dialysis. - Avoid nephrotoxic agents. Hematoma of intravenous catheter site05/03/2025 Assessment & Plan (05/03/2025 2:05 PM EDT): - Neck side. - Fluid cx was sent. - We will order US neck. - Start doxy empirically. Sinus hplaubtynlh67/06/2025 Assessment & Plan (05/03/2025 12:13 PM EDT): - Continue Toprol, Farxiga and spironolactone. - Hold Entresto due to LINDA. Assessment & Plan (04/24/2025 4:13 PM EDT): - Continue Toprol. - Hold Entresto and spironolactone due to hypotension. Assessment & Plan (04/23/2025 3:28 PM EDT): - Continue Toprol. - Hold Entresto and spironolactone due to hypotension. Right ventricular rdjwfmyncbb34/06/2025 Assessment & Plan (05/03/2025 12:13 PM EDT): - Required Harvard Stacy and dobutamine in ICU. - Improving. Assessment & Plan (04/24/2025 4:13 PM EDT): - CTA chest showed no PE. - Right cath today. Assessment & Plan (04/23/2025 3:28 PM EDT): - We will order CTA chest due to tachycardia. - Left and right cath tomorrow. Hypotension due to shcyfgmgaex67/03/2025 Assessment & Plan (05/03/2025 12:13 PM EDT): [...] Toprol, Entresto, spironolactone due to hypotension. Chest pain04/19/2025 Assessment & Plan (05/03/2025 12:13 PM EDT): - Echo on admission showed early tamponade. Patient was taken to cleaning laborer for Pericardiocentesis. Right heart cath was not suggestive for tamponade. 300 ml serosanguinous fluid. - Repeated echo showed mild effusion. Assessment & Plan (04/24/2025 4:13 PM EDT): - Echo showed early tamponade. Patient was taken to cleaning laborer for Pericardiocentesis. Right heart cath was not suggestive for tamponade. 300 ml serosanguinous fluid. - Monitor BP. - Continue colchicine per Cardiology. - Repeated echo showed mild effusion. Assessment & Plan (04/23/2025 3:28 PM EDT): - Echo showed early tamponade. Patient was taken to cleaning laborer for Pericardiocentesis. Right heart cath was not suggestive for tamponade. 300 ml serosanguinous fluid. - Monitor BP. - Continue colchicine per Cardiology. - Repeated echo showed mild effusion. Assessment & Plan (04/22/2025 8:13 PM EDT): - Echo showed early tamponade. Patient was taken to cleaning laborer for Pericardiocentesis. Right heart cath was not suggestive for tamponade. 300 ml serosanguinous fluid and pigtail was placed. - Monitor BP. - Continue colchicine per Cardiology. - Repeat echo on Monday 04/23. Assessment & Plan (04/21/2025 4:54 PM EDT): - Echo showed early tamponade. Patient was taken to cleaning laborer for Pericardiocentesis. Right heart cath was not suggestive for tamponade. 300 ml serosanguinous fluid and pigtail was placed. - Monitor BP. - Continue colchicine per Cardiology. - Follow up blood and fluid cx. - Repeat echo on Monday 04/23. Assessment & Plan (04/20/2025 12:20 PM EDT): - Echo showed early tamponade. Patient was taken to cleaning laborer for Pericardiocentesis. Right heart cath was [...] small pericardial effusion. Workup was negative for CO Daily Update: [facility] Pain has improved to 2/10 Today's Plan: will continue to control pain as necessary. Cardiology consulted for investigation ofwatchman and other etiologies. Will continue to monitor. NPO for now. Echo showed signs of cardiac tamponade. Patient taken to heart cath with plan for possible pericardiocentesis. Heart failure with reduced ejection huvvbntv87/02/2025 Assessment & Plan (05/03/2025 2:05 PM EDT): [...] as well as daily weight checks. Pericardial lidpmbav72/02/2025 Assessment & Plan (05/03/2025 12:13 PM EDT): - Echo on admission showed early tamponade. Patient was taken to cleaning laborer for Pericardiocentesis. Right heart cath was not suggestive for tamponade. 300 ml serosanguinous fluid. - Repeated echo showed mild effusion. Assessment & Plan (04/24/2025 4:13 PM EDT): - Echo showed early tamponade. Patient was taken to cleaning laborer for Pericardiocentesis. Right heart cath was not suggestive for tamponade. 300 ml serosanguinous fluid. - Monitor BP. - Continue colchicine per Cardiology. - Repeated echo showed mild effusion. Assessment & Plan (04/23/2025 3:28 PM EDT): - Echo showed early tamponade. Patient was taken to cleaning laborer for Pericardiocentesis. Right heart cath was not suggestive for tamponade. 300 ml serosanguinous fluid. - Monitor BP. - Continue colchicine per Cardiology. - Repeated echo showed mild effusion. Assessment & Plan (04/22/2025 8:13 PM EDT): - Echo showed early tamponade. Patient was taken to cleaning laborer for Pericardiocentesis. Right heart cath was not suggestive for tamponade. 300 ml serosanguinous fluid and pigtail was placed. - Monitor BP. - Continue colchicine per Cardiology. - Repeat echo on Monday 04/23. Assessment & Plan (04/21/2025 4:54 PM EDT): - Echo showed early tamponade. Patient was taken to cleaning laborer for Pericardiocentesis. Right heart cath was not suggestive for tamponade. 300 ml serosanguinous fluid and pigtail was placed. - Monitor BP. - Continue colchicine per Cardiology. - Follow up blood and fluid cx. - Repeat echo on Monday 04/23. Assessment & Plan (04/20/2025 12:20 PM EDT): - Echo showed early tamponade. Patient was taken to cleaning laborer for Pericardiocentesis. Right heart cath was [...] small pericardial effusion. Workup was negative for CO Daily Update: patient arrived [place] [facility]. Pain has improved to 2/10 Today's Plan: will continue to control pain as necessary. Cardiology consulted for investigation ofwatchman and other etiologies. Will continue to monitor. NPO for now. Echo showed signs of cardiac tamponade. Patient taken to heart cath with plan for possible pericardiocentesis. Mpwwrcqpyboe05/02/2025 Assessment & Plan (04/20/2025 12:20 PM EDT): - Follow up urine Na and osmol. - Improving. Assessment & Plan (04/19/2025 1:19 PM EDT): Sodium 126 Will continue to monitor Urine sodium and serum osmolality ordered Lcnplafwlyre05/02/2025trial ewgmgiqsdymw08/09/2025 Assessment & Plan (05/03/2025 12:13 PM EDT): [...] plavix Will continue to monitor Paroxysmal atrial foixozbiaujb12/04/2024 Overview (01/06/2024): Last Assessment & Plan: In NSR and continue medication. Follow up with cardiology. Chronic mvdgewqigoyp77Nasal polypICD (implantable cardioverter-defibrillator) in place09/15/2022 Assessment & Plan (05/03/2025 2:05 PM EDT): [...] is due for interrogation this coming march Gwwckyeceyqgpl17/14/2023 Overview (09/01/2022): Added automatically from request for surgery [id number] Assessment & Plan (05/03/2025 2:05 PM EDT): [...] (02/19/2023 1:06 PM EDT): As above Depressive mivbmkjr40/13/6565Ajamakvxpbgv02/13/2023 Assessment & Plan (02/19/2023 1:06 PM EDT): Continue statin Ynujmwqunkz52/13/2023Seasonal allergic owljqzbt07/13/2023Steatosis of liver 08/31/2022Vitamin D taywvvthau70/13/2023oronary artery disease involving stebbins coronary artery of stebbins heart with angina promxqbn57/19/2022 Assessment & Plan (05/03/2025 12:13 PM EDT): [...] statin therapy lipitor 40mg Chronic systolic heart alsqyyh3807/06/2022 Assessment & Plan (01/06/2024 12:03 PM EDT): [facility]- currently EF improved from 25-30% to [...] and electrolytes- History of malignant neoplasm of qeojhxdu31/16/0588Hxkqtkddimgjwp32/16/2022 Primary fzotkycpebek15/16/2022 Assessment & Plan (05/03/2025 12:13 PM EDT): [...] Continue medications New onset of congestive heart eulyzol0907/02/2022 Assessment & Plan (07/06/2022 10:32 PM EST): [...] complexes he may no BiV ICD -continue calkipBM39rs, entresto 24-26, will add medications pending echo Syncope and zvmgyxfj10/15/2022 Overview (07/03/2022): Added automatically from request for surgery [id number] Uncomplicated uhezks3507/29/2012 Assessment & Plan (05/03/2025 12:13 PM EDT): [...] to our equivalent Mild persistent asthma without zcxsvgqemqug69/11/2013 Overview (01/06/2024): Last Assessment & Plan: No SOB and continue advair. Use albuterol PRN. Benign essential kitmnyqwyrnd53Hyperlipidemia07/02/2008 05/11/2023 Assessment & Plan (01/06/2024 11:59 AM EDT): Script for liver function and lipid levels given to pt Continue statin Malignant tumor of avxmjstg16 Resolved Problems ProblemNoted DateDiagnosed DateResolved DateHx of benign neoplasm of prostate Encounters DateTypeDepartmentCare KtevXpbxdwahbfc56/27/2025 1:40 PM EDTOffice Visit [facility] [place] [address] [place] [address] Elliott Nettles, ALEXIS S/P pericardiocentesis (Primary Dx); Chronic systolic heart failure (CMS/HCC); Nonischemic cardiomyopathy (CMS/HCC); ICD (implantable cardioverter-defibrillator) in place; Paroxysmal atrial fibrillation (CMS/HCC); Benign hypertensive heart disease with heart failure (CMS/HCC); Chronic systolic congestive heart failure (CMS/HCC); Heart failure with reduced ejection fraction (CMS/HCC)05/07/2025 10:40 AM EDT Ancillary Procedure [facility] [address] [place] [address] Pre-operative cardiovascular examination, ICD in place05/07/2025Telephone [facility] V[facility] Lab [address] [place] [address] Yelena Lara RN HF post discharge call and inpt survey sent.05/07/2025Orders Only [facility] [address] [facility] [place] [id number] Mercedes Prado MA LINDA (acute kidney injury) (Primary Dx); Rexdhzibjsis09/17/2025Orders Only [facility] [address] [place] [address] Bobo Raymond MD 04/24/2025 3:00 PM EDT - 04/24/2025 4:00 PM EDTSurgery [facility] [address] [place] [address] Hay William MD Right heart cath [[id number] (CPT??)]04/19/2025 2:45 PM EDT - 04/19/2025 5:15 PM EDT Surgery [facility] [address] [place] [address] Venu Samaniego MD Left heart cath04/19/2025 10:46 AM EDT - 05/04/2025 4:33 PM EDTHospital Encounter [facility] [address] [place] [address] Benedict Pascual MD Noori, Zaid, MD Moukarbel, [...] heart failure (CMS/HCC) Discharge Disposition: Home-Health Care [facility] (06)04/19/20258939Hmwgtt67/16/2025 10:20 AM EDTOffice Visit [facility] [address] [facility] [place] [address] Neelam Gutierrez CNP Paroxysmal atrial fibrillation (CMS/HCC) (Primary Dx); Presence of Watchman left atrial appendage closure device; Chronic systolic heart failure (CMS/HCC); Coronary artery disease involving stebbins coronary artery of stebbins heart without angina pectoris; ICD (implantable cardioverter-defibrillator) in place; Nonischemic cardiomyopathy (CMS/HCC); Benign hypertensive heart disease with heart failure (CMS/HCC)03/26/2025 2:34 PM EDT - 03/26/2025 11:59 PM EDTHospital Encounter [facility] CT Imaging [address] [place] [address] Prediabetes (Primary Dx); Paroxysmal atrial fibrillation (CMS/HCC); Presence of Watchman left atrial appendage closure device Discharge Disposition: Home or Self Care ()03/23/2025 10:45 AM EDTAncillary Procedure [facility] [address] [place] [phone] Pre-operative cardiovascular examination, ICD in place03/23/2025Orders Only [facility] [address] [place] [phone] Dariel Wagoner MD 02/27/2025Orders Only [place] [place] [address] Mercedes Prado MA Chronic systolic heart failure (CMS/HCC) (Primary Dx)02/26/2025 10:45 AM EDT Follow-Up [place] [address] [place] [address] Hay William MD Paroxysmal atrial fibrillation (CMS/HCC) (Primary Dx); Presence of Watchman left atrial appendage closure device; PAF (paroxysmal atrial fibrillation) (CMS/HCC); Chronic systolic heart failure (CMS/HCC); Coronary artery disease involving stebbins coronary artery of stebbins heart without angina pectoris; Primary hypertension; ICD (implantable cardioverter-defibrillator) in place; Nonischemic cardiomyopathy (CMS/HCC); Tdtelbnaag70/05/2025 2:00 PM EDTAncillary Procedure [facility] [address] [place] [address] Pre-operative cardiovascular examination, ICD in place02/20/2025Orders Only [facility] [address] [place] [address] Mitesh Vernon MD from Last 3 Months Immunizations ImmunizationAdministration DatesNext FemWSQ4609/01/2021Influenza, Unspecified 07/29/2012Unspecified Sars-Cov-2 Zejdkjodtot23/12/2021,10/11/2020,2020 Family History Medical HistoryRelationNameCommentsEmphysemaFatherStrokeMotherpacemakerMother RelationNameStatusCommentsFatherDeceasedMotherDeceased Social History Tobacco UseTypesPacks/DayYears UsedDateSmoking Tobacco: FormerCigarettes Smokeless Tobacco: Never Tobacco Cessation:Counseling Given: Not Answered Alcohol UseStandard Drinks/DyeqPxvhgqtdOpm98 (1 standard drink = 0.6 oz pure alcohol)occasionalAHC UtilitiesAnswerDate RecordedIn the past 12 months has the electric, gas, oil, or water Diagnose.me threatened to shut off services in your home?No04/19/2025Humiliation, Afraid, Rape, and Kick questionnaireAnswerDate RecordedWithin the last year, have you been afraid of your partner or ex-partner?No04/19/2025Emotionally AbusedNot on file04/19/2025Physically Abused Not on file04/19/2025Sexually AbusedNot on file04/19/2025Overall Financial Resource Strain (CARDIA)AnswerDate RecordedHow hard is it for you to pay for the very basics like food, housing, medical care, and heating?Not hard at all 04/19/2025TransportationAnswerDate RecordedIn the past 12 months, has lack of transportation kept you from medical appointments or from getting medications?No 04/19/2025Lack of Transportation (Non-Medical)Not on file04/19/2025Housing Stability Vital SignAnswerDate RecordedIn the last 12 months, was there a time when you were not able to pay the mortgage or rent on time?No04/19/2025Number of Times Moved in the Last YearNot on file04/19/2025t any time in the past 12 months, were you homeless or living in a [place] (including now)?No04/19/2025 Hunger Vital SignAnswerDate RecordedWithin the past 12 months, you worried that your food would run out before you got the money to buymore.Never true04/19/2025 Ran Out of Food in the Last YearNot on file04/19/2025Sex and Gender Information ValueDate RecordedSex Assigned at CqvlsAyjf45/06/2025 8:51 AM EDTLegal SexMale 01/14/2022 10:53 PM EDTGender IjtcyerzKiyi04/06/2025 8:51 AM EDTSexual OrientationHeterosexual or Xxyvpswi50/06/2025 8:51 AM EDT Last Filed Vital Signs Vital SignReadingTime TakenCommentsBlood Trqqucwi376/7605/14/2025 1:34 PM EDT Ysqry49190/27/2025 1:34 PM VXAZsvjjztvsrl86.9 ??C (98.4 ??F)05/04/2025 12:07 PM EDTRespiratory Wwbj017705/04/2025 12:07 PM EDTOxygen Elkbxuzzld32%05/14/2025 1:34 PM EDTInhaled Oxygen Concentration--Vazerc01.1 kg (170 lb)05/14/2025 1:34 PM EDT Ljzpny204.7 cm (5' 8 )05/14/2025 1:34 PM EDTBody Mass Index25.8505/14/2025 1:34 PM EDT Plan of Treatment DateTypeDepartmentCare Team (Latest Contact Info)Wlbeyufomol97/05/2025 10:00 AM ESTOffice Visit [facility] [address] [place] [address] Hay William MD [address] [facility] [address] [place] [address] Health MaintenanceDue DateLast DoneCommentsCT Chxejcniktou81/04/1956Diabetes: Hemoglobin A1C1955FIT-DNA1955FIT1955FOBT1955Medicare Annual Wellness (AWV)1955 3935Vgjzkkueqowej70/04/1956Depression Screening 1967Pneumococcal Vaccine: 50+ Years (1 of 2 - PCV)09/19/1974Adult Tetanus 09/19/1977Zoster Vaccines (1 of 2)09/19/20057574Qbhverwszco10 Colorectal Cancer Gdhhbdcly40/09/2018COVID-19 Vaccine ( season) /06/2021, 05/30/2021, 10/11/2020, Additional history existsInfluenza Vaccine (#1)/05/2013Fall Risk Ovzghhfbr27HIB VaccinesAged OutNo longer eligible based on patient's age to complete this topic HPV VaccinesAged OutNo longer eligible based on patient's age to complete this topicIPV VaccinesAged OutNo longer eligible based on patient's age to complete this topicMeningococcal B VaccineAged OutNo longer eligible based on patient's age to complete this topicMeningococcal VaccineAged OutNo longer eligible based on patient's age to complete this topicRotavirus VaccinesAged OutNo longer eligible based on patient's age to complete this topic Medical Devices ImplantedTypeAreaManufacturerDevice IdentifierShelf Expiration DateModel / Serial / LotDefib,Courtney El Df4-Dr - [id number] - [id number] Implanted:Qty: 1 on 09/04/2022 by [facility] [id number] / [id number] / [place] 4-Front S Active Fix Single Coil 59cm Implanted:Qty: 1 on 09/04/2022 by Bobo Raymond MD at [facility] [id number] / [id number] / Ingevity+ Is-1 Bi Positive Fix Ra/Rv 52cm Implanted:Qty: 1 on 09/04/2022 by [facility] [id number] / [id number] / Closure,Watchman,Flxpro,35mm - [id number] Implanted:Qty: 1 on 02/06/2025 by Hay [facility] Atrial Appendage ClosureLeft: [facility] [id number] / / [id number] Procedures Procedure NamePriorityDate/TimeAssociated DiagnosisCommentsCARDIAC DEVICE CHECK CHECK - FMNTTHPitqssv36/21/2025 9:23 AM EDT Pre-operative cardiovascular examination, ICD in place BASIC METABOLIC PANELAdd-On05/04/2025 4:18 AM EDT CBC WITH AUTO RLVXPFSXZQSAOvgyduv25/17/2025 4:18 AM EDT JTWUYRHSMCNifmmlo46/17/2025 4:18 AM EDT RBMLNRVFPNuomhow85/17/2025 4:18 AM EDT CBC AND TLYWWNBOJNIATesyppw88/17/2025 4:18 AM EDT CARDIAC DEVICE CHECK - REMOTE - RIRVjnhxhm61/17/2025 12:00 AM EDTUS NECKRoutine 05/03/2025 3:56 PM EDT BODY FLUID LBAGHMCMzeryts16/16/2025 12:59 PM EDT RESPIRATORY ASSESS AND TREAT OOHNELXZGlvkted41/16/2025 8:00 AM EDTBASIC METABOLIC PANELAdd-On05/03/2025 3:51 AM EDT CBC WITH AUTO VCQAWKYTGRQTCkjaney90/16/2025 3:51 AM EDT BRWFTIUSLPEvqeexk66/16/2025 3:51 AM EDT DOUPIOJGCRwdgovg54/16/2025 3:51 AM EDT CBC AND AIRNQIPGQAINNogtowk66/16/2025 3:51 AM EDT RESPIRATORY ASSESS AND TREAT MYEYXSPTSoqmqea70/15/2025 8:00 AM EDTCBC WITH AUTO GOWROMITCHHLCaglqni09/15/2025 3:13 AM EDT EWACCBFQFCJifdamh79/15/2025 3:13 AM EDT VKJFSRLNTRwyayep25/15/2025 3:13 AM EDT COMPREHENSIVE METABOLIC YGCJRDhwaliz11/15/2025 3:13 AM EDT CBC AND MUAFRAJTJMLYTbqpqml54/15/2025 3:13 AM EDT WEQOTJXZXNJeflv48/14/2025 8:30 AM EDT JUJSETHEPDepfo41/14/2025 8:30 AM EDT BASIC METABOLIC FPGGLUmaqh21/14/2025 8:30 AM EDT RESPIRATORY ASSESS AND TREAT KJEIRXOWTplmfet91/14/2025 8:00 AM EDTPHOSPHORUS Add-On05/01/2025 3:05 AM EDT MAGNESIUMAdd-On05/01/2025 3:05 AM EDT CBC WITH AUTO ELLSYMJSLUDVHjlngnc22/14/2025 3:05 AM EDT COMPREHENSIVE METABOLIC TGSVXWkvjpwh24/14/2025 3:05 AM EDT CBC AND MEGPSFIUCDZHWivnqvq86/14/2025 3:05 AM EDT SDYLQWZFGUGqsel49/14/2025 12:47 AM EDT RFXVXFMOCZhgou24/14/2025 12:47 AM EDT BASIC METABOLIC YHEEMKrijk92/14/2025 12:47 AM EDT AYQVRGCXRWMuvuz76/13/2025 8:12 PM EDT POGIGBRDMXyaav16/13/2025 8:12 PM EDT BASIC METABOLIC YTGBXVphtp24/13/2025 8:12 PM EDT PHOSPHORUSPending Vaufybkcr60/13/2025 3:22 PM EDT MAGNESIUMPending Rteqplrrh00/13/2025 3:22 PM EDT BASIC METABOLIC PANELPending Abikzqeqh85/13/2025 3:22 PM EDT PHOSPHORUSPending Lgggxhfxj81/13/2025 11:13 AM EDT MAGNESIUMPending Xlmlemxwm62/13/2025 11:13 AM EDT BASIC METABOLIC PANELPending Ayhmijdlr56/13/2025 11:13 AM EDT LIMITED ECHOCARDIOGRAM (TTE) W/ LTD DOPPLER AND COLOR AOUDZdeikjc89/13/2025 8:35 AM EDT RESPIRATORY ASSESS AND TREAT DYYDTFIPZzyupwh64/13/2025 8:00 AM EDTPHOSPHORUS Pending Xdbkrxuzy64/13/2025 7:48 AM EDT MAGNESIUMPending Fgywumise22/13/2025 7:48 AM EDT BASIC METABOLIC PANELPending Ovrxgxzwu45/13/2025 7:48 AM EDT CBC WITH AUTO DIFFERENTIALPending Xclbnjmrz62/13/2025 4:10 AM EDT COMPREHENSIVE METABOLIC PANELPending Qtuxcycdt62/13/2025 4:10 AM EDT CBC AND CLMYQNPSROEIExrgxbc96/13/2025 4:10 AM EDT PHOSPHORUSPending Vkfzirbix90/13/2025 4:10 AM EDT MAGNESIUMPending Esxvbthks57/13/2025 4:10 AM EDT PHOSPHORUSPending Sgxttkjbp86/13/2025 12:09 AM EDT MAGNESIUMPending Usszicvbq68/13/2025 12:09 AM EDT BASIC METABOLIC PANELPending Ajjchhydl64/13/2025 12:09 AM EDT PHOSPHORUSPending Uztwoftob51/12/2025 8:02 PM EDT MAGNESIUMPending Uiegorubz09/12/2025 8:02 PM EDT BASIC METABOLIC PANELPending Kgotjrnvl78/12/2025 8:02 PM EDT BLOOD GAS, VENOUSPending Xvrbrdcvf73/12/2025 3:38 PM EDT PHOSPHORUSPending Djxlvufvv67/12/2025 3:38 PM EDT MAGNESIUMPending Wbugnrggp99/12/2025 3:38 PM EDT BASIC METABOLIC PANELPending Jbqoeomhg58/12/2025 3:38 PM EDT PHOSPHORUSPending Nphsrxdvd72/12/2025 1:02 PM EDT MAGNESIUMPending Zkdeguufv50/12/2025 1:02 PM EDT BASIC METABOLIC PANELPending Bjlaijapf45/12/2025 1:02 PM EDT XR CHEST 1 PSTLMwwksuo78/12/2025 11:20 AM EDT FERRITINAdd-On04/29/2025 8:14 AM EDT IRON AND TIBCAdd-On04/29/2025 8:14 AM EDT PHOSPHORUSPending Kzgbbrllx69/12/2025 8:14 AM EDT MAGNESIUMPending Mjxddcjno04/12/2025 8:14 AM EDT BASIC METABOLIC PANELPending Hniualghb18/12/2025 8:14 AM EDT RESPIRATORY ASSESS AND TREAT MAXRAKOTZbwtgwp79/12/2025 8:00 AM EDTCBC WITH AUTO DIFFERENTIALPending Ykrgamdwn45/12/2025 3:04 AM EDT CBC AND SVTDEOKCANINGobjqhs62/12/2025 3:04 AM EDT PHOSPHORUSPending Uygmujeqw65/12/2025 3:04 AM EDT MAGNESIUMPending Yeadigrrl64/12/2025 3:04 AM EDT BASIC METABOLIC PANELPending Xblpoeyom74/12/2025 3:04 AM EDT COMPREHENSIVE METABOLIC PANELPending Guqzhzadd53/12/2025 2:38 AM EDT AMMONIAPending Swumkhfwz10/12/2025 2:38 AM EDT CRRT THERAPY FLUID FNMNBIqbmssq67/12/2025 12:30 AM EDTPHOSPHORUSPending Bsgsgqmbc29/12/2025 12:22 AM EDT MAGNESIUMPending Ewtwdmiji55/12/2025 12:22 AM EDT BASIC METABOLIC PANELPending Iovvjnsyf21/12/2025 12:22 AM EDT PHOSPHORUSPending Zcqqslifj13/11/2025 8:10 PM EDT MAGNESIUMPending Yriqrewai98/11/2025 8:10 PM EDT BASIC METABOLIC PANELPending Tqunexmnv91/11/2025 8:10 PM EDT PHOSPHORUSPending Osqieujnz05/11/2025 3:57 PM EDT COMPREHENSIVE METABOLIC PANELPending Emxgedrvp66/11/2025 3:57 PM EDT MAGNESIUMPending Vfnxrondg41/11/2025 3:57 PM EDT PHOSPHORUSPending Pngtpyfkk61/11/2025 1:46 PM EDT MAGNESIUMPending Hndvjnkai45/11/2025 1:46 PM EDT BASIC METABOLIC PANELPending Hxlirtmxz47/11/2025 1:46 PM EDT POCT GLUCOSE METER UNSOLICITED CVEKJSFUmjipeb95/11/2025 1:44 PM EDT ABG UNSOLICITED DYXPLXSIkgzepl22/11/2025 8:54 AM EDT PHOSPHORUSPending Osqtccmhd05/11/2025 8:37 AM EDT MAGNESIUMPending Buigmqqsp93/11/2025 8:37 AM EDT BASIC METABOLIC PANELPending Tfiwcwonf66/11/2025 8:37 AM EDT ABG HNAIJtdkatw89/11/2025 8:19 AM EDTRESPIRATORY ASSESS AND TREAT PROTOCOL Yofaadv5204/28/2025 8:00 AM EDTCBCPending Jiadjviix67/11/2025 3:21 AM EDT RESPIRATORY ASSESS AND TREAT GVTNXRKUBelxbyk75/11/2025 3:10 AM EDTPHOSPHORUS Add-On04/28/2025 3:06 AM EDT MAGNESIUMAdd-On04/28/2025 3:06 AM EDT BASIC METABOLIC PANELPending Gxharshwp35/11/2025 3:06 AM EDT XR ABDOMEN 1 QLCHSPBY74/11/2025 12:50 AM EDT CRRT THERAPY FLUID TINOHFyqkbrn31/11/2025 12:30 AM NQNJKITQLITPOAduxj40/11/2025 12:06 AM EDT NIWXJHETWLhurm60/11/2025 12:06 AM EDT BASIC METABOLIC BDXAILuarq84/11/2025 12:06 AM EDT MAGNESIUMAdd-On04/27/2025 7:57 PM EDT HEMOGLOBIN AND HEMATOCRIT, LKAMXOafhaam37/10/2025 7:57 PM EDT BASIC METABOLIC HEWYRWycutqb81/10/2025 7:57 PM EDT CRRT THERAPY FLUID VAYYEUqlbctg46/10/2025 6:18 PM NDXATDRRUKPMZPczmd30/10/2025 5:38 PM EDT ZKAKLCLERZmlvw40/10/2025 5:38 PM EDT BASIC METABOLIC RSTVUBnhkm59/10/2025 5:38 PM EDT POCT GLUCOSE METER UNSOLICITED NUERTYQLsyausg52/10/2025 5:14 PM EDT POCT GLUCOSE METER UNSOLICITED JYDWHGBEhcfyjv42/10/2025 12:01 PM EDT POCT GLUCOSE METER UNSOLICITED LZWCZIDZguhbnw58/10/2025 10:07 AM EDT LDGJEVPHVKSokwk29/10/2025 5:36 AM EDT YEXDYZKFHNtllr26/10/2025 5:36 AM EDT BASIC METABOLIC HQQDBTsqnq14/10/2025 5:36 AM EDT GYEAalbidw64/10/2025 5:36 AM EDT CO-PBKJNADEGyugiwp14/10/2025 4:25 AM EDT BMLQJTDRFAHvjnb91/09/2025 11:59 PM EDT UGJNGWZHAQcwyw41/09/2025 11:59 PM EDT BASIC METABOLIC HJGLGObnoc16/09/2025 11:59 PM EDT UJNHGCSELUPinvf85/09/2025 4:24 PM EDT BASIC METABOLIC JTODIHpqqb15/09/2025 4:24 PM EDT UKXTUSBLEJyyzo32/09/2025 4:24 PM EDT UREA NITROGEN, URINEPending Tyirzjdzn98/09/2025 8:40 AM EDT SODIUM, URINE, RANDOMPending Iplhmwpgb45/09/2025 8:40 AM EDT CREATININE, URINE, RANDOMPending Jtmbvogzx61/09/2025 8:40 AM EDT URINALYSISPending Yaeozhmmr98/09/2025 8:40 AM EDT SYNGpihkgi75/09/2025 3:05 AM EDT BHZKEAZGMSoareme79/09/2025 3:05 AM EDT BASIC METABOLIC PMNTCOeruprq78/09/2025 3:05 AM EDT CPTVSKWUHEHriolca99/09/2025 3:05 AM EDT CO-YVWABLSZRrlkigj63/09/2025 2:39 AM EDT XR CHEST 1 JAGUDSOZ99/08/2025 4:17 PM EDT BASIC METABOLIC PANELPending Lioqjtncu85/08/2025 1:12 PM EDT PHOSPHORUSPending Jklnewshm76/08/2025 3:22 AM EDT MAGNESIUMPending Joqdbgnjs75/08/2025 3:22 AM EDT CBCPending Rwrfnqzui31/08/2025 3:22 AM EDT BASIC METABOLIC PANELPending Guyhsjksl70/08/2025 3:22 AM EDT SWAN (FLOW DIRECTED CATH) POFWSBRQTHhjddfu47/07/2025 3:42 PM EDT Right ventricular dysfunction RIGHT HEART BFQQKdmfquv75/07/2025 3:42 PM EDT Right ventricular dysfunction LIPID PANELAdd-On04/24/2025 4:07 AM EDT MAGNESIUMPending Yixdgezxp54/07/2025 4:07 AM EDT CBCPending Nbjzbqxbg80/07/2025 4:07 AM EDT BASIC METABOLIC PANELPending Xelaijqdv24/07/2025 4:07 AM EDT CTA CHEST W IV UVAEMAAIBMTV92/06/2025 4:47 PM EDT LIMITED ECHOCARDIOGRAM (TTE) W/ LTD DOPPLER AND COLOR CKSIZojwski23/06/2025 7:56 AM EDT IATYFACKXAHJJ72/06/2025 5:02 AM EDT CBC WITH AUTO DIFFERENTIALPending Kmkoeohbs79/06/2025 5:02 AM EDT CBC AND RFTSKYPTCTCJMzqdjrs27/06/2025 5:02 AM EDT COMPREHENSIVE METABOLIC TIMEQKYDE51/06/2025 5:02 AM EDT C-REACTIVE PROTEINPending Lyisbcknu38/06/2025 5:[address] CERVICAL SPINE WO IV YQHJKCWSKEBY87/06/2025 3:[address] HEAD WO IV HGJOCAEEBIIA24/06/2025 3:59 AM EDT ECG 12-YRLAZXYA40/06/2025 3:34 AM EDT LIMITED ECHOCARDIOGRAM (TTE) W/ LTD DOPPLER AND COLOR UDCCPfxixvm00/03/2025 1:51 PM EDT BVKHTFEEFITwnyiux21/03/2025 12:25 PM EDT BLOOD GNNIIMJOablpdv56/03/2025 10:09 AM EDT BLOOD INBZKJBShbfccl87/03/2025 10:09 AM EDT CORTISOLSTAT Add-on04/20/2025 5:15 AM EDT WMTPzvfjhr91/03/2025 5:15 AM EDT BASIC METABOLIC OZEWRAcklxkx76/03/2025 5:15 AM EDT SODIUM, URINE, BRKNTQSgdohhl86/02/2025 8:28 PM EDT ECG 12-CABBVyfalfa91/02/2025 6:35 PM EDT LYFVREGCIFXakmlqk07/02/2025 6:26 PM EDT B-TYPE NATRIURETIC KTTZQWGLfpvgmn20/02/2025 6:25 PM EDT LIMITED ECHO (TTE)Vrcqkda8504/19/2025 3:37 PM EDT PATHOLOGY DSJSIIWhgaiob99/02/2025 3:23 PM EDT NON-FOUNDATION ENGINEER CYTOLOGY - CELLULAR YMWUWoquxhd80/02/2025 3:23 PM EDT BODY FLUID CELL AEXGAUGMPSCCAurgbhs99/02/2025 3:23 PM EDT BODY FLUID CELL COUNT WITH MZJCQLAMDMXJPgemzdu03/02/2025 3:23 PM EDT BODY FLUID CELL COUNT WITH FUGYRODYPFGZQycdsqt58/02/2025 3:23 PM EDT ANAEROBIC SCQZWYCDwpqpfc90/02/2025 3:23 PM EDT BODY FLUID QLBYYBASvsaubc65/02/2025 3:23 PM EDT BODY FLUID CULTURE AND ANAEROBIC OFXDEUTKddygdn73/02/2025 3:23 PM EDT QRUNAXEQSHGQNOVWMDKtgmqot18/02/2025 3:22 PM EDT Pericardial effusion RIGHT HEART GVSKHxheuwz98/02/2025 3:22 PM EDT Pericardial effusion LEFT HEART WAYHXmrlpad09/02/2025 3:22 PM EDT Pericardial effusion POCT HBO2%Cvobfod6504/19/2025 2:47 PM EDT POCT HBO2%Ustuero1404/19/2025 2:47 PM EDT LIGHT GREEN DJSAbimohi61/02/2025 2:44 PM EDT WIKAnbjzgl08/02/2025 2:44 PM EDT C-REACTIVE WRSBMDSPqyqdgh97/02/2025 2:44 PM EDT LAVENDER ZEGGxbghme97/02/2025 2:32 PM EDT EXTRA JUCFGJespljb12/02/2025 2:32 PM EDT COMPLETE ECHO (TTE)Suhvnex6004/19/2025 1:13 PM EDT SEDIMENTATION RATEAdd-On04/19/2025 12:14 PM EDT HIGH SENSITIVITY TROPONIN IAdd-On04/19/2025 12:14 PM EDT COMPREHENSIVE METABOLIC FZMVONoqzrvt19/02/2025 12:14 PM EDT LKMVvbqlsm80/02/2025 12:14 PM EDT ECG 12-JMQVMfjavbo65/02/2025 12:09 PM EDT CTA CHEST W IV CIFDWKSCUjbzwul38/08/2025 5:07 PM EDT Paroxysmal atrial fibrillation (CMS/HCC) Presence of Watchman left atrial appendage closure device CREATININE, WSGKUPsemjfg13/08/2025 2:43 PM EDT Prediabetes ZCOEzmydhm31/08/2025 2:43 PM EDT Paroxysmal atrial fibrillation (CMS/HCC) BASIC METABOLIC ZTBPLBbqwhan81/08/2025 2:43 PM EDT Paroxysmal atrial fibrillation (CMS/HCC) CARDIAC DEVICE CHECK CHECK - HSAFMLGmvwsup98/08/2025 11:56 AM EDT Pre-operative cardiovascular examination, ICD in place CARDIAC DEVICE CHECK - REMOTE - JHPYnpvdrb51/05/2025 12:00 AM EDTCARDIAC DEVICE CHECK CHECK - MIXYRBRagclhi44/13/2025 3:36 PM EDT Pre-operative cardiovascular examination, ICD in place CARDIAC DEVICE CHECK - REMOTE - ZVKDddvliu51/05/2025 12:00 AM EDTCARDIAC DEVICE CHECK CHECK - MDGGDDJegkign24/31/2025 11:52 AM EDT Pre-operative cardiovascular examination, ICD in place from Last 3 Months Results * CARDIAC DEVICE CHECK - REMOTE - ICD (05/08/2025 9:23 AM EDT) Only the most recent of4 resultswithin the time period is included. Specimen (Source)Anatomical Location / LateralityCollection Method / Volume Collection TimeReceived Time Narrative Authorizing ProviderResult TypeResult StatusPaul [facility]irm[facility] IMPLANTABLE CARDIAC DEVICE PROCEDURESFinal ResultPerforming OrganizationAddressCity/State/ZIP Code Phone Number CPACS * (ABNORMAL) CBC auto differential (05/04/2025 4:18 AM EDT) Only the most recent of7 resultswithin the time period is included. ComponentValueRef RangeTest MethodAnalysis TimePerformed AtPathologist Signature Auto WBC6.044.00 - 10.60 10*3/uL05/04/2025 5:15 AM [facility] ([facility]) RBC3.10(L)4.20 - 5.70 10*6/uL05/04/2025 5:15 AM [facility] ([facility]) Hemoglobin9.8(L)13.0 - 17.0 g/dL05/04/2025 5:15 AM [facility] ([facility]) Mkdqkpxods00.3(L)39.0 - 50.0 %05/04/2025 5:15 AM [facility] ([facility]) MCV91.382.0 - 98.0 fL05/04/2025 5:15 AM [facility] ([facility])MCH31.627.0 - 33.0 pg05/04/2025 5:15 AM [facility] ([facility])MCHC34.632.0 - 35.0 g/dL05/04/2025 5:15 AM [facility] ([facility])RDW14.711.5 - 15.0 % 05/04/2025 5:15 AM [facility] ([facility])Neutrophils %70.440.0 - 72.0 % 05/04/2025 5:15 AM [facility] ([facility])Lymphocytes %14.2(L)20.0 - 45.0 %05/04/2025 5:15 AM [facility] ([facility])Monocytes %14.2(H)5.0 - 12.0 % 05/04/2025 5:15 AM [facility] ([facility])Eosinophils %0.50.0 - 6.0 % 05/04/2025 5:15 AM [facility] ([facility])Basophils %0.20.0 - 1.0 % 05/04/2025 5:15 AM [facility] ([facility])Neutrophils Absolute4.251.60 - 7.60 10*3/uL05/04/2025 5:15 AM [facility] ([facility])Lymphocytes Absolute 0.86(L)1.20 - 4.00 10*3/uL05/04/2025 5:15 AM [facility] ([facility]) Monocytes Absolute0.860.10 - 1.00 10*3/uL05/04/2025 5:15 AM [facility] ([facility])Eosinophils Absolute0.030.00 - 0.50 10*3/uL05/04/2025 5:15 AM [facility] ([facility])Basophils Absolute0.010.00 - 0.20 10*3/uL05/04/2025 5:15 AM [facility] ([facility])Kahgfdjzp588260 - 400 10*3/uL05/04/2025 5:15 AM [facility] ([facility])nRBC %0.00 %05/04/2025 5:15 AM [facility] ([facility])Immature Granulocytes %0.50.0 - 1.0 %05/04/2025 5:15 AM [facility] ([facility])Immature Granulocytes Absolute0.030.00 - 0.20 10*3/uL05/04/2025 5:15 AM [facility] ([facility])Specimen (Source)Anatomical Location / LateralityCollection Method / VolumeCollection TimeReceived TimeBloodVenous blood specimen / UnknownVenipuncture / Zfjamjz1605/04/2025 4:18 AM EDT1 4:48 AM EDT Narrative Authorizing ProviderResult TypeResult StatusAajohann Anthony [facility] BLOOD ORDERABLES Final ResultPerforming OrganizationAddressCity/State/ZIP CodePhone Number [facility]) [address] [place] [phone] * Phosphorus (05/04/2025 4:18 AM EDT) Only the most recent of30 resultswithin the time period is included. ComponentValueRef RangeTest MethodAnalysis TimePerformed AtPathologist Signature Phosphorus3.12.5 - 5.0 mg/dL05/04/2025 5:12 AM [facility]) Specimen (Source)Anatomical Location / LateralityCollection Method / Volume Collection TimeReceived TimeBloodVenous blood specimen / UnknownVenipuncture / Aacffbf2305/04/2025 4:18 AM EDT1 4:46 AM EDT Narrative Authorizing ProviderResult TypeResult StatusDg Power [facility] BLOOD ORDERABLESFinal ResultPerforming OrganizationAddressCity/State/ZIP CodePhone Number [facility]) [address] [place] [address] * Magnesium (05/04/2025 4:18 AM EDT) Only the most recent of33 resultswithin the time period is included. ComponentValueRef RangeTest MethodAnalysis TimePerformed AtPathologist Signature Magnesium2.01.9 - 2.7 mg/dL05/04/2025 5:12 AM [facility]) Specimen (Source)Anatomical Location / LateralityCollection Method / Volume Collection TimeReceived TimeBloodVenous blood specimen / UnknownVenipuncture / Tzfnhqv0805/04/2025 4:18 AM EDT1 4:46 AM EDT Narrative Authorizing ProviderResult TypeResult StatusYolupe MURRAY BLOOD ORDERABLESFinal ResultPerforming OrganizationAddressCity/State/ZIP CodePhone Number [facility] ([facility]) [address] [place] [address] * (ABNORMAL) Basic metabolic panel (05/04/2025 4:18 AM EDT) Only the most recent of31 resultswithin the time period is included. ComponentValueRef RangeTest MethodAnalysis TimePerformed AtPathologist Signature Qgfrhh489(L)136 - 145 mmol/L1 9:10 AM [facility] ([facility]) Potassium3.73.5 - 5.1 mmol/L1 9:10 AM [facility] ([facility]) Kezaldaw64(L)98 - 107 mmol/L1 9:10 AM [facility] ([facility])CO2 2321 - 31 mmol/L1 9:10 AM [facility] ([facility])YNB020 - 25 mg/dL05/04/2025 9:10 AM [facility] ([facility])Creatinine1.58(H)0.70 - 1.30 mg/dL05/04/2025 9:10 AM [facility] ([facility])Wkxpneq7698 - 100 mg/dL05/04/2025 9:10 AM [facility] ([facility])Calcium7.3(L)8.6 - 10.3 mg/dL05/04/2025 9:10 AM [facility] ([facility])Anion Cfm716 - 20 mmol/L 05/04/2025 9:10 AM [facility] ([facility])eGFR47.1(L)>60.0 mL/min/1.73m*2 05/04/2025 9:10 AM [facility] ([facility])Comment:[facility]???s estimated glomerular filtration rate (eGFR) will no longer include consideration of race in its calculation. The National Kid[employer] Foundation???s eGFR Task Force developed new recommendations for the estimation of the glomerular filtration rate in the [place] They recommend immediate implementation of the new equation refit without the race variable in all la boratories because the calculation does not include race. In addition to not including race in the calculation and reporting, it included diversity in its development, and has acceptable performance characteristics and potential consequences that do not disproportionately affect any one group of individuals. BUN/Creatinine Ratio15.81 9:10 AM [facility] ([place])Specimen (Source)Anatomical Location / LateralityCollection Method / VolumeCollection TimeReceived TimeBloodVenous blood specimen / UnknownVenipuncture / Unknown 05/04/2025 4:18 AM EDT1 4:46 AM EDT Narrative Authorizing ProviderResult TypeResult StatusOmar Samara MURRAY BLOOD ORDERABLES Final ResultPerforming OrganizationAddressCity/State/ZIP CodePhone Number [facility] ([place]) [address] [place] [address] * Cardiac device check - Remote ICD (05/04/2025 12:00 AM EDT) Only the most recent of3 resultswithin the time period is included. Anatomical RegionLateralityModalityOtherSpecimen (Source)Anatomical Location / LateralityCollection Method / VolumeCollection TimeReceived Time05/04/2025 Narrative Authorizing ProviderResult TypeResult StatusBobo Raymond MDCV IMPLANTABLE CARDIAC DEVICE PROCEDURESFinal Result * US neck (05/03/2025 3:56 PM EDT)Anatomical [...] signed: Virgilio Barillas MD. Authorizing ProviderResult TypeResult StatusBenedict VELA US PROCEDURESFinal Result * (ABNORMAL) Body fluid culture (05/03/2025 12:59 PM EDT) Only the most recent of2 resultswithin the time period is included. ComponentValueRef RangeTest MethodAnalysis TimePerformed AtPathologist Signature CultureLight Growth Staphylococcus lugdunensis(A) FLORA 05/05/2025 7:07 AM [facility] ([facility])Comment:Gram Stain Result Moderate Polymorphonuclear aqylyppvrj21/18/2025 7:07 AM [facility] ([facility])Gram Stain ResultNo organisms seen05/05/2025 7:07 AM [facility] ([facility])Specimen (Source)Anatomical Location / LateralityCollection Method / VolumeCollection TimeReceived TimeFluidNeck structure / UnknownNon-blood Collection / Gmbiuda5905/03/2025 12:59 PM EDT1 1:20 PM EDT Narrative [facility] ([facility]) - 05/05/2025 7:07 AM EDT Rare Growth Skin Darlyn OrganismAntibioticMethodSusceptibilityStaphylococcus lugdunensisClindamycinMIC <=0.5 ug/ml: Susceptible Staphylococcus lugdunensisOxacillinMIC <=0.25 ug/ml: Susceptible Staphylococcus lugdunensisTetracyclineMIC <=0.5 ug/ml: Susceptible Staphylococcus lugdunensisVancomycinMIC <=0.5 ug/ml: Susceptible Authorizing ProviderResult TypeResult StatusBenedict MURRAY MICROBIOLOGY - GENERAL ORDERABLESFinal ResultPerforming OrganizationAddressCity/State/ZIP Code Phone Number [facility] ([facility]) [address] [place] [address] * (ABNORMAL) Comprehensive metabolic panel (05/02/2025 3:13 AM EDT) Only the most recent of7 resultswithin the time period is included. ComponentValueRef RangeTest MethodAnalysis TimePerformed AtPathologist Signature Flvmeq520(L)136 - 145 mmol/L1 4:00 AM [facility] ([facility]) Potassium3.1(L)3.5 - 5.1 mmol/L1 4:00 AM [facility] ([facility]) Tjxnlvgt79(L)98 - 107 mmol/L1 4:00 AM [facility] ([facility])CO2 33(H)21 - 31 mmol/L1 4:00 AM [facility] ([facility])Anion Qzq360 - 20 mmol/L1 4:00 AM [facility] ([facility])EMC255 - 25 mg/dL 05/02/2025 4:00 AM [facility] ([facility])Creatinine1.69(H)0.70 - 1.30 mg/dL05/02/2025 4:00 AM [facility] ([facility])BUN/Creatinine Ratio11.8 05/02/2025 4:00 AM [facility] ([facility])Lynndlf279(H)70 - 100 mg/dL 05/02/2025 4:00 AM [facility] ([facility])Calcium7.3(L)8.6 - 10.3 mg/dL 05/02/2025 4:00 AM [facility] ([facility])AST54(H)13 - 39 U/L1 4:00 AM [facility] ([facility])ALT (SGPT)129(H)7 - 52 U/L1 4:00 AM [facility] ([facility])Alkaline Vexgsjzjaye8645 - 104 U/L1 4:00 AM [facility] ([facility])Total Protein5.4(L)6.0 - 8.3 g/dL05/02/2025 4:00 AM [facility] ([facility])Albumin3.1(L)3.5 - 5.7 g/dL05/02/2025 4:00 AM [facility] ([facility])Total Bilirubin0.70.3 - 1.0 mg/dL05/02/2025 4:00 AM [facility] ([facility])eGFR43.4(L)>60.0 mL/min/1.73m* 4:00 AM [facility] ([facility])Comment:[facility]???s estimated glomerular filtration rate (eGFR) [...] BLOOD ORDERABLES Final ResultPerforming OrganizationAddressCity/State/ZIP CodePhone Number [facility] ([place]) [address] [place] [address] * LIMITED ECHOCARDIOGRAM (TTE) W/ LTD DOPPLER AND COLOR FLOW (04/30/2025 8:35 AM EDT)Anatomical RegionLateralityModalityOtherSpecimen (Source)Anatomical Location / LateralityCollection Method / VolumeCollection TimeReceived Time 04/30/2025 7:02 AM EDT Narrative 04/30/2025 11:22 AM EDT 1 1 [facility] [address] [place] [address] [phone] (fax) Echocardiogram-[facility] Name: KRISTY DOHERTY Study Date: 04/30/2025 07:02 AM B/P: 121 mmHg/100 mmHg HR: 87 bpm Date of : 1955 Location: [facility] Height: 68 in. Age: 69 year(s) [...] with the fellow Procedure Staff Reading Group: [facility] Referring Physician: RUDY KING ??Sql Data Architect: June Brumfield RDCS, RVT, RN, BSN ??Ordering Physician: Wil Sotomayor MD Wall Motion Scores -1 - hyperkinesia, 0 - not evaluated, 1 - normal, 2 - hypokinesia, 3 - akinesia, 4 - dyskinesia Procedure Note Hay William MD - 04/30/2025 1 1 [facility] [address] [facility] [address] [phone] (fax) Echocardiogram-[facility] Name: KRISTY DOHERTY Study Date: 04/30/2025 07:02 AM B/P: 121 mmHg/100 mmHg HR: 87 bpm Date of : 1955 Location: [facility] Height: 68 in. Age: 69 year(s) [...] with the fellow Procedure Staff Reading Group: [facility] Referring Physician: RUDY KING Sql Data Architect: June Brumfield RDCS, RVT, RN, BSN Ordering Physician: Wil Sotomayor MD [employer] Scores -1 - hyperkinesia, 0 - not evaluated, 1 - normal, 2 - hypokinesia, 3 - akinesia, 4 - dyskinesia Authorizing ProviderResult TypeResult StatusBlair [facility] ECHO PROCEDURES Final Result * (ABNORMAL) Blood Gas, Venous (04/29/2025 3:38 PM EDT)ComponentValueRef Range Test MethodAnalysis TimePerformed AtPathologist SignaturepH, Ven7.43(H)7.31 - 7.411 3:56 PM EDTUT RESPIRATORY THERAPYpCO2, Cuo4954 - 50 mmHg 04/29/2025 3:56 PM [facility] RESPIRATORY THERAPYpO2, Bvo5329 - 45 mmHg04/29/2025 3:56 PM [facility] RESPIRATORY THERAPYO2 Sat, Ven56.1(L)65.0 - 75.0 %04/29/2025 3:56 PM [facility] RESPIRATORY THERAPYHCO3, Gkugmh53.9mmol/L1 3:56 PM [facility] RESPIRATORY THERAPYOxyhemoglobin, Hscejh61.6%04/29/2025 3:56 PM EDT [facility] RESPIRATORY THERAPYpH Venous Temp Adjusted7.43(H)7.31 - 7.411 3:56 PM [facility] RESPIRATORY THERAPYpCO2 Venous Temp Wiptgtbp0744 - 50 mmHg 04/29/2025 3:56 PM [facility] RESPIRATORY THERAPYpO2 Venous Temp Lktswfcm1306 - 45 mmHg04/29/2025 3:56 PM [facility] RESPIRATORY TYIHJKZUhimnjlhbhs41.0??C 04/29/2025 3:56 PM [facility] RESPIRATORY THERAPYSpecimen (Source)Anatomical Location / LateralityCollection Method / VolumeCollection TimeReceived Time BloodVenous blood specimen / UnknownExisting Catheter / Kmzwycd3104/29/2025 3:38 PM EDT1 3:51 PM EDT Narrative Authorizing ProviderResult TypeResult StatusAadil Raj MDLAB BLOOD ORDERABLES Final ResultPerforming OrganizationAddressCity/State/ZIP CodePhone Number [facility] RESPIRATORY THERAPY [address] [place] [address], [place] * XR chest 1 view (04/29/2025 11:20 AM EDT) Only the most recent of2 resultswithin the time period is included. Anatomical RegionLateralityModalityChestComputed RadiographySpecimen (Source) Anatomical Location / LateralityCollection Method / VolumeCollection Time Received Time04/29/2025 11:50 AM EDT Impressions 04/29/2025 11:51 [...] MORALESG XR PROCEDURES Final Result * (ABNORMAL) Iron and TIBC (04/29/2025 8:14 AM EDT)ComponentValueRef RangeTest MethodAnalysis TimePerformed AtPathologist OncwigfdrCulq97(L)50 - 212 ug/dL 04/29/2025 10:43 AM [facility] ([facility])YPIH191(L)250 - 450 ug/dL 04/29/2025 10:43 AM [facility] ([facility])Iron Uzypfqmmyr15(L)20 - 50 % 04/29/2025 10:43 AM [facility] ([facility])RZJF585.0155.0 - 355.0 ug/dL 04/29/2025 10:43 AM [facility] ([facility])Specimen (Source)Anatomical Location / LateralityCollection Method / VolumeCollection TimeReceived Time BloodVenous blood specimen / UnknownExisting Catheter / Jknqpnq1804/29/2025 8:14 AM EDT1 8:19 AM EDT Narrative Authorizing ProviderResult TypeResult StatusPepe MURRAY BLOOD ORDERABLES Final ResultPerforming OrganizationAddressCity/State/ZIP CodePhone Number [facility] ([facility]) [address] [place] [address] * (ABNORMAL) Ferritin (04/29/2025 8:14 AM EDT)ComponentValueRef RangeTest Method Analysis TimePerformed AtPathologist SignatureFerritin1,265.0(H)24.0 - 336.0 ng/mL04/29/2025 11:02 AM [facility] ([facility])Specimen (Source) Anatomical Location / LateralityCollection Method / VolumeCollection Time Received TimeBloodVenous blood specimen / UnknownExisting Catheter / Unknown 04/29/2025 8:14 AM EDT1 8:19 AM EDT Narrative Authorizing ProviderResult TypeResult StatusAadienid Anthony MDLAB BLOOD ORDERABLES Final ResultPerforming OrganizationAddressCity/State/ZIP CodePhone Number [facility]) [address] [place] [address] * Ammonia (04/29/2025 2:38 AM EDT)ComponentValueRef RangeTest MethodAnalysis TimePerformed AtPathologist OuxcgzsyqCfisjhr7314 - 72 umol/L1 3:06 AM [facility] ([facility])Specimen (Source)Anatomical Location / Laterality Collection Method / VolumeCollection TimeReceived TimeBloodVenous blood specimen / UnknownArterial Line / Oifckbw2004/29/2025 2:38 AM EDT1 2:44 AM EDT Narrative Authorizing ProviderResult TypeResult StatusAadienid Raj MDLAB BLOOD ORDERABLES Final ResultPerforming OrganizationAddressCity/State/ZIP CodePhone Number [facility]) [address] [place] [address] * POCT glucose meter (04/28/2025 1:44 PM EDT) Only the most recent of4 resultswithin the time period is included. ComponentValueRef RangeTest MethodAnalysis TimePerformed AtPathologist Signature Glucose RUO2160 - 105 mg/dL04/28/2025 1:56 PM [facility]) Comment:knyowrz71Qpzfikda (Source)Anatomical Location / LateralityCollection Method / VolumeCollection TimeReceived TimeBloodCapillary blood specimen / Xxxrqhx5504/28/2025 1:44 PM EDT1 1:56 PM EDT Narrative [facility] ([facility]) - 04/28/2025 1:56 PM EDT Waived Testing in the ED is performed under the ED CLIA certificate #[id number]. Authorizing ProviderResult TypeResult StatusAadienid MURRAY BLOOD ORDERABLES Final ResultPerforming OrganizationAddressCity/State/ZIP CodePhone Number [facility] ([place]) [address] [place] [address] * (ABNORMAL) Arterial Blood Gases (04/28/2025 8:54 AM EDT)ComponentValueRef RangeTest MethodAnalysis TimePerformed AtPathologist SignaturepH, Arterial7.36 7.35 - 7.451 8:54 AM [facility] RESPIRATORY THERAPYpCO2, Wvjgljar25(L)35 - 45 mmHg04/28/2025 8:54 AM [facility] RESPIRATORY THERAPYpO2, Lytcsraw5532 - 108 mmHg04/28/2025 8:54 AM [facility] RESPIR[facility] THERAPYHCO3, Julmrjef14.9(L) 21.0 - 28.0 mmol/L1 8:54 AM [facility] RESPIR[facility] THERAPYO2 Sat, Dskzmwwi06.194.0 - 100.0 %04/28/2025 8:54 AM [facility] RESPIR[facility]ORY THERAPYBase Excess, Arterial-7.3(L)-2.0 - 3.0 mmol/L1 8:54 AM [facility] RESPIRATORY THERAPYOxyhemoglobin, Srmtnlsy72.294.0 - 97.0 %04/28/2025 8:54 AM [facility] RES[facility]ORY VMNDVNEQesjjkqlwnf71.0??04/28/2025 8:54 AM [facility] RESPIRATORY THERAPYOxygen Device #3Vrrwfus99/11/2025 8:54 AM [facility] RESPIR[facility] THERAPY LPM4.0LPM1 8:54 AM [facility] RESPIR[facility]ORY THERAPYPF Ratio04/28/2025 8:54 AM [facility] RESPIRATORY THERAPYComment:C^IncalculableA-iLd23804/28/2025 8:54 AM [facility] RESPIRATORY THERAPYComment:C^IncalculablepaO2/lSO20104/28/2025 8:54 AM [facility] RESPIRATORY THERAPYComment:C^IncalculableSpecimen (Source)Anatomical Location / LateralityCollection Method / VolumeCollection TimeReceived Time BloodArterial blood specimen / Hqqjgik0204/28/2025 8:54 AM EDT1 8:54 AM EDT Narrative Authorizing ProviderResult TypeResult StatusAadil aRj MURRAY BLOOD ORDERABLES Final ResultPerforming OrganizationAddressCity/State/ZIP CodePhone Number [facility] RESPIRATORY THERAPY [address] [place] [address], [place] * (ABNORMAL) CBC (04/28/2025 3:21 AM EDT) Only the most recent of8 resultswithin the time period is included. ComponentValueRef RangeTest MethodAnalysis TimePerformed AtPathologist Signature Auto WBC19.72(H)4.00 - 10.60 10*3/uL04/28/2025 4:06 AM [facility] ([facility])RBC2.90(L)4.20 - 5.70 10*6/uL04/28/2025 4:06 AM [facility] ([facility])Hemoglobin9.4(L)13.0 - 17.0 g/dL04/28/2025 4:06 AM [facility] ([facility])Hzzouboync28.2(L)39.0 - 50.0 %04/28/2025 4:06 AM [facility] ([facility])MCV93.882.0 - 98.0 fL04/28/2025 4:06 AM [facility] ([facility])MCH 32.427.0 - 33.0 pg04/28/2025 4:06 AM [facility] ([facility])MCHC34.632.0 - 35.0 g/dL04/28/2025 4:06 AM [facility] ([facility])RDW14.311.5 - 15.0 % 04/28/2025 4:06 AM [facility] ([facility])Mswkdzwtc920202 - 400 10*3/uL 04/28/2025 4:06 AM [facility] ([facility])Specimen (Source)Anatomical Location / LateralityCollection Method / VolumeCollection TimeReceived TimeBlood Venous blood specimen / UnknownArterial Line / Jmefuqt0104/28/2025 3:21 AM EDT 04/28/2025 3:41 AM EDT Narrative Authorizing ProviderResult TypeResult StatusAadienid MURRAY BLOOD ORDERABLES Final ResultPerforming OrganizationAddressCity/State/ZIP CodePhone Number [facility] ([place]) [address] [facility] [place] [address] * XR abdomen 1 view (04/28/2025 12:50 [...] signed: El Gomes. Authorizing ProviderResult TypeResult StatusAajohann MORALESG XR PROCEDURES Final Result * (ABNORMAL) Hemoglobin and hematocrit, blood (04/27/2025 7:57 PM EDT)Component ValueRef RangeTest MethodAnalysis TimePerformed AtPathologist Signature Okdkvhayph30.6(L)13.0 - 17.0 g/dL04/27/2025 8:28 PM [facility] ([facility])Rhudipdmeo44.2(L)39.0 - 50.0 %04/27/2025 8:28 PM [facility] ([facility])Specimen (Source)Anatomical Location / LateralityCollection Method / VolumeCollection TimeReceived TimeBloodVenous blood specimen / UnknownArterial Line / Szqiqyf1804/27/2025 7:57 PM EDT1 8:10 PM EDT Narrative Authorizing ProviderResult TypeResult StatusAajohann MURRAY BLOOD ORDERABLES Final ResultPerforming OrganizationAddressCity/State/ZIP CodePhone Number [facility] ([facility]) [address] [place] [address] * Co-oximetry (04/27/2025 4:25 AM EDT) Only the most recent of2 resultswithin the time period is included. ComponentValueRef RangeTest MethodAnalysis TimePerformed AtPathologist Signature Vhfvkxuvoxhdt98.0%04/27/2025 4:31 AM [facility] RESPIRATORY THERAPYTotal Hemoglobin 11.5g/dL04/27/2025 4:31 AM [facility] THERAPYO2 Sat36.4%04/27/2025 4:31 AM [facility] RESPIRATORY THERAPYSpecimen (Source)Anatomical Location / Laterality Collection Method / VolumeCollection TimeReceived TimeBloodMixed venous blood specimen / UnknownArterial Line / Fctwefx8404/27/2025 4:25 AM EDT1 4:25 AM EDT Narrative Authorizing ProviderResult TypeResult StatusAajohann MURRAY BLOOD ORDERABLES Final ResultPerforming OrganizationAddressCity/State/ZIP CodePhone Number [facility] RESPIRATORY THERAPY [address] [place] [address], * Urea nitrogen, urine (04/26/2025 8:40 AM EDT)ComponentValueRef RangeTest MethodAnalysis TimePerformed AtPathologist SignatureUrea Nitrogen, So818gu/dL 04/26/2025 9:11 AM [facility] ([facility])Specimen (Source)Anatomical Location / LateralityCollection Method / VolumeCollection TimeReceived Time UrineUrine specimen obtained by clean catch procedure / UnknownNon-blood Collection / Wjysdyv7704/26/2025 8:40 AM EDT1 8:52 AM EDT Narrative Authorizing ProviderResult TypeResult StatusPepe Anthony MILAB URINE ORDERABLES Final ResultPerforming OrganizationAddressty/State/ZIP CodePhone Number [facility]) [address] [place] [address] * Sodium, urine, random (04/26/2025 8:40 AM EDT) Only the most recent of2 resultswithin the time period is included. ComponentValueRef RangeTest MethodAnalysis TimePerformed AtPathologist Signature Sodium, Fk16ynvx/L1 9:11 AM [facility] ([facility])Specimen (Source)Anatomical Location / LateralityCollection Method / VolumeCollection TimeReceived TimeUrineUrine specimen obtained by clean catch procedure / Unknown Non-blood Collection / Ixyyyyz0604/26/2025 8:40 AM EDT1 8:52 AM EDT Narrative Authorizing ProviderResult TypeResult StatusPepe Anthony MDLAB URINE ORDERABLES Final ResultPerforming OrganizationAddressCity/State/ZIP CodePhone Number [facility]) [address] [place] [address] * Creatinine, urine, random (04/26/2025 8:40 AM EDT)ComponentValueRef RangeTest MethodAnalysis TimePerformed AtPathologist SignatureCreatinine, Ur83.026 - 299 mg/dL04/26/2025 9:11 AM [facility])Specimen (Source) Anatomical Location / LateralityCollection Method / VolumeCollection Time Received TimeUrineUrine specimen obtained by clean catch procedure / Unknown Non-blood Collection / Exdwrqc0004/26/2025 8:40 AM EDT1 8:52 AM EDT Narrative Authorizing ProviderResult TypeResult StatusAadil Raj MURRAY URINE ORDERABLES Final ResultPerforming OrganizationAddressCity/State/ZIP CodePhone Number [facility] ([facility]) [address] [place] [address] * (ABNORMAL) Urinalysis (04/26/2025 8:40 AM EDT)ComponentValueRef RangeTest MethodAnalysis TimePerformed AtPathologist SignatureColor, UrineLight-Yellow Colorless, Yellow, Light-Gekhay2904/26/2025 9:27 AM [facility] ([facility])Clarity, XnukgGvatdFyvgu19/09/2025 9:27 AM [facility] ([facility])pH, Urine5.05.0 - 8.0 pH04/26/2025 9:27 AM [facility] ([facility])Leukocytes, RywlbKxqccopdPqdbwcyx84/09/2025 9:27 AM [facility] ([facility])Nitrite, MikfvJiyjguevZwhlfrvr90/09/2025 9:27 AM [facility] ([facility])Protein, UrineNegativeNegative mg/dL04/26/2025 9:27 AM [facility] ([facility])Glucose, Cqiwt619(A)Normal mg/dL04/26/2025 9:27 AM EDT [facility] ([facility])Bilirubin, KukysDtvafzhzVoccdfru58/09/2025 9:27 AM [facility] ([facility])Specific [place], Urine1.0131.010 - 1.030 04/26/2025 9:27 AM [facility] ([facility])Ketones, UrineNegativeNegative mg/dL04/26/2025 9:27 AM [facility] ([facility])Blood, UrineNegative Ibgctrnk38/09/2025 9:27 AM [facility] ([facility])Urobilinogen, Urine NormalNormal mg/dL04/26/2025 9:27 AM [facility] ([facility])Specimen (Source)Anatomical Location / LateralityCollection Method / VolumeCollection TimeReceived TimeUrineUrine specimen obtained by clean catch procedure / UnknownNon-blood Collection / Bfeobjs9404/26/2025 8:40 AM EDT1 8:52 AM EDT Narrative [facility] ([facility]) - 04/26/2025 9:27 AM EDT Microscopics not performed on urines with negative chemical reactions unless requested on original order. Authorizing ProviderResult TypeResult StatusAadil Raj MURRAY URINE ORDERABLES Final ResultPerforming OrganizationAddressCity/State/ZIP CodePhone Number [facility] ([place]) [address] [place] [address] * RIGHT HEART CATH, SWAN (FLOW DIRECTED [...] Performed: Right heart catheterization. Placement of a DATA ABSTRACTOR Harvard-Stacy catheter for hemodynamic monitoring. Access into the right internal jugular vein under ultrasound guidance. Methods: ??Procedure was explained to the patient with risks and benefits; he signed informed consent. ??he was brought to the cleaning laborer in a fasting state. The right neck area was prepped and draped in usual fashion. Micropuncture technique was used for access under ultrasound guidance into the right internal jugular vein. ??A 6-Burkinan x 11 cm sheath was placed. ?? A 6-Burkinan Carrasquillo catheter was used for right heart catheterization and measurement of pressures and calculation of cardiac output using the estimated [place] method. ??Carrasquillo catheter was removed. Over a wire to the access sheath was upsized to a 9 Burkinan introducer sheath. ??A DATA ABSTRACTOR Harvard-Stacy catheter was advanced with the aid of a V18 wire and the distal end of the catheter was advanced to the distal segment of the right pulmonary artery. ??The Harvard-Stacy catheter was secured in place. he tolerated [...] with biventricular failure. Successful placement of a DATA ABSTRACTOR Harvard-Stacy catheter to guide management of heart failure. Plan: Patient will be started on intravenous inotropic therapy. Further recommendations per inpatient Cardiology service. Hay William MD Study Details Other hypotension [I95.89], Right ventricular dysfunction [I51.9] Authorizing ProviderResult TypeResult StatusAdam Yoon CNPCV CARDIAC CATH PROCEDURESFinal Result * (ABNORMAL) Lipid panel (04/24/2025 4:07 AM EDT)ComponentValueRef RangeTest MethodAnalysis TimePerformed AtPathologist LlnsybibgKwvnzalqdiydw77<150 mg/dL 04/24/2025 2:39 PM [facility] ([facility])Comment: TRIGLYCERIDE REFERENCE RANGE: 20 YEARS AND OLDER ?CARDIOVASCULAR RISK LESS THAN 150 mg/dL ? LOW RISK 150 TO 199 mg/dL ?BORDERLINE RISK 200 mg/dL AND GREATER ? HIGH RISK Ztwtsdixlqn13(L)120 - 200 mg/dL04/24/2025 2:39 PM [facility] ([facility]) LDL Vocctrttfo454 - 160 mg/dL04/24/2025 2:39 PM [facility] ([facility])HDL 2923 - 92 mg/dL04/24/2025 2:39 PM [facility] ([facility])Non HDL Svoraxnowdb8907/07/2025 2:39 PM [facility] ([facility])Total VLDL-C150 - 40 mg/dL04/24/2025 2:39 PM [facility] ([facility])Cholesterol/HDL Ratio3.4 mg/dL04/24/2025 2:39 PM [facility] ([facility])Specimen (Source)Anatomical Location / LateralityCollection Method / VolumeCollection TimeReceived Time BloodVenous blood specimen / UnknownVenipuncture / Fpouvar9904/24/2025 4:07 AM EDT 04/24/2025 4:17 AM EDT Narrative Authorizing ProviderResult TypeResult StatusBebo MURRAY BLOOD ORDERABLES Final ResultPerforming OrganizationAddressCity/State/ZIP CodePhone Number [facility] ([place]) [address] [place] [address] * CTA Chest W IV Contrast (04/23/2025 4:47 PM EDT) Only the most recent of2 resultswithin the time period is included. Anatomical RegionLateralityModalityBody, ChestComputed TomographySpecimen (Source)Anatomical Location / LateralityCollection Method [...] Narrative 04/23/2025 9:27 AM EDT 1 1 [facility] Heart Station [address] [id number] [phone] (fax) Echocardiogram-[facility] Name: KRISTY DOHERTY Study Date: 04/23/2025 07:26 AM B/P: 90 mmHg/74 mmHg HR: 111 bpm Date of : 1955 Location: [facility] Height: 68 in. Age: 69 year(s) [...] minimal pericardial effusion. Procedure Staff Reading Group: [facility] Referring Physician: RUDY KING ??Sql Data Architect: June Brumfield RDCS, RVT, RN, BSN ??Ordering Physician: FANI DENNEY ?? Wall Motion Scores -1 - hyperkinesia, 0 - not evaluated, 1 - normal, 2 - hypokinesia, 3 - akinesia, 4 - dyskinesia Procedure Note Mitesh Vernon MD - 04/23/2025 1 1 [facility] Heart Station [address] [place] [address] [phone] (fax) Echocardiogram-[facility] Name: KRISTY DOHERTY Study Date: 04/23/2025 07:26 AM B/P: 90 mmHg/74 mmHg HR: 111 bpm Date of : 1955 Location: [facility] Height: 68 in. Age: 69 year(s) [...] minimal pericardial effusion. Procedure Staff Reading Group: [facility] Referring Physician: RUDY KING Sql Data Architect: June Brumfield RDCS, RVT, RN, BSN Ordering Physician: FANI DENNEY Wall Motion Scores -1 - hyperkinesia, 0 - not evaluated, 1 - normal, 2 - hypokinesia, 3 - akinesia, 4 - dyskinesia Authorizing ProviderResult TypeResult StatusSouth[facility]umana [facility] ECHO PROCEDURES Final Result * (ABNORMAL) C-reactive protein (04/23/2025 5:02 AM EDT) Only the most recent of2 resultswithin the time period is included. ComponentValueRef RangeTest MethodAnalysis TimePerformed AtPathologist Signature CRP39.4(H)<=5.0 mg/L1 8:57 AM [facility]TM[facility] ([facility])Comment: Testing performed using a new methodology, turbidimetry. Normal ranges have been updated. Old normal range was <8 mg/L.Specimen (Source)Anatomical Location / LateralityCollection Method / VolumeCollection TimeReceived TimeBloodVenous blood specimen / UnknownVenipuncture / Pjndqhg5704/23/2025 5:02 AM EDT1 5:22 AM EDT Narrative Authorizing ProviderResult TypeResult StatusYanely Archer [facility] BLOOD ORDERABLESFinal ResultPerforming OrganizationAddressCity/State/ZIP CodePhone Number [facility] ([place]) [address] [place] [address] * CT cervical spine wo IV contrast [...] signed: Ayden Corbin MD. Authorizing ProviderResult TypeResult StatusIdanne Medina MDPurvi CT PROCEDURES Final Result * CT head [...] signed: Ayden Corbin MD. Authorizing ProviderResult TypeResult StatusIdanne VELA CT PROCEDURES Final Result * ECG 12 lead (04/23/2025 3:34 AM EDT) Only the most recent of3 resultswithin the time period is included. ComponentValueRef RangeTest MethodAnalysis TimePerformed AtPathologist Signature Ventricular Gzqa755KMSWF MUSEAtrial Bhtd910WGSDG MUSEPR Flnfiisa769kxSE MUSEQRS OJHHHKAU471zmMW MUSEQT Mjgqdxis861jkLK MUSEQTC CALCULATION(BAZETT)415msGE MUSEP Hrwn63fgypvlpWL MUSER-Bnly50sngywhsPC MUSET Wave Gxjv860jjllqdxUZ MUSESpecimen (Source)Anatomical Location / LateralityCollection Method / [...] Narrative 04/20/2025 5:38 PM EDT 1 1 [facility] Heart Station [address] [place] [address] [phone] (fax) Echocardiogram-[facility] Name: KRISTY DOHERTY Study Date: 04/20/2025 01:28 PM B/P: 83 mmHg/58 mmHg HR: 96 bpm Date of : 1955 Location: [facility] Height: 68 in. Age: 69 year(s) [...] No pericardial effusion. Procedure Staff Reading Group: [facility] Referring Physician: RUDY KING ??Sql Data Architect: June Brumfield RDCS, RVT, RN, BSN ??Ordering Physician: VENU SAMANIEGO Wall Motion Scores -1 - hyperkinesia, 0 - not evaluated, 1 - normal, 2 - hypokinesia, 3 - akinesia, 4 - dyskinesia Procedure Note Mitesh Vernon MD - 04/20/2025 1 1 [facility] Heart Station [address] [place] [address] [phone] (fax) Echocardiogram-[facility] Name: KRISTY DOHERTY Study Date: 04/20/2025 01:28 PM B/P: 83 mmHg/58 mmHg HR: 96 bpm Date of : 1955 Location: [facility] Height: 68 in. Age: 69 year(s) [...] No pericardial effusion. Procedure Staff Reading Group: [facility] Referring Physician: RUDY KING Sql Data Architect: June Brumfield, RDCS, RVT, RN, BSN Ordering Physician: VENU SAMANIEGO Wall Motion Scores -1 - hyperkinesia, 0 - not evaluated, 1 - normal, 2 - hypokinesia, 3 - akinesia, 4 - dyskinesia Authorizing ProviderResult TypeResult StatusChrisfrancesco Samaniego [facility] ECHO PROCEDURESFinal Result * Osmolality (04/20/2025 12:25 PM EDT) Only the most recent of2 resultswithin the time period is included. ComponentValueRef RangeTest MethodAnalysis TimePerformed AtPathologist Signature Nnblkjqucc808132 - 295 mOsm/kg04/20/2025 7:48 PM EDUN[facility] LABComment:Test Performed by [facility] [address] [place] [id number] - Onkstszt 04/20/2025 19:48Specimen (Source)Anatomical Location / Laterality Collection Method / VolumeCollection TimeReceived TimeBloodVenous blood specimen / UnknownVenipuncture / Jjujqmv9104/20/2025 12:25 PM EDT1 12:56 PM EDT Narrative Authorizing ProviderResult TypeResult StatusBenedict MURRAY BLOOD ORDERABLES Final ResultPerforming OrganizationAddressCity/State/ZIP CodePhone Number [facility] [address] [place] [address] * Blood culture, peripheral #2 (04/20/2025 10:09 AM EDT) Only the most recent of2 resultswithin the time period is included. ComponentValueRef RangeTest MethodAnalysis TimePerformed AtPathologist Signature Blood CultureNo growth at 5 days [place] 04/25/2025 12:01 PM EDTM[facility] ([facility])Specimen (Source)Anatomical Location / LateralityCollection Method / VolumeCollection TimeReceived TimeBlood Venous blood specimen / UnknownVenipuncture / Porrwui4704/20/2025 10:09 AM EDT 04/20/2025 12:00 PM EDT Narrative Authorizing ProviderResult TypeResult StatusBenedict MURRAY MICROBIOLOGY - GENERAL ORDERABLESFinal ResultPerforming OrganizationAddressCity/State/ZIP Code Phone Number [facility] ([facility]) [address] [place] [address] * Cortisol (04/20/2025 5:15 AM EDT)ComponentValueRef RangeTest MethodAnalysis TimePerformed AtPathologist AveldalzcAlgckwvl63.26 - 23 ug/dL04/20/2025 12:47 PM [facility] ([facility])Specimen (Source)Anatomical Location / LateralityCollection Method / VolumeCollection TimeReceived TimeBloodVenous blood specimen / UnknownVenipuncture / Dgmknam8904/20/2025 5:15 AM EDT1 5:22 AM EDT Narrative Authorizing ProviderResult TypeResult Ta MURRAY BLOOD ORDERABLES Final ResultPerforming OrganizationAddressCity/State/ZIP CodePhone Number [facility]) [address] [place] [address] * (ABNORMAL) B-type natriuretic peptide (04/19/2025 6:25 PM EDT)ComponentValue Ref RangeTest MethodAnalysis TimePerformed AtPathologist XtxgndxyjQWB447(H)0 - 100 pg/mL04/19/2025 7:07 PM [facility] ([facility])Specimen (Source) Anatomical Location / LateralityCollection Method / VolumeCollection Time Received TimeBloodVenous blood specimen / UnknownVenipuncture / Unknown 04/19/2025 6:25 PM EDT1 6:36 PM EDT Narrative Authorizing ProviderResult TypeResult StatusChstalin MURRAY BLOOD ORDERABLESFinal ResultPerforming OrganizationAddressCity/State/ZIP CodePhone Number [facility]) [address] [place] [address] * LIMITED ECHO (TTE) (04/19/2025 3:37 PM EDT)Anatomical RegionLateralityModality OtherSpecimen (Source)Anatomical Location / LateralityCollection Method / VolumeCollection TimeReceived Time04/19/2025 2:13 PM EDT Narrative 04/19/2025 4:30 PM EDT 1 1 [facility] [address] [place] [address] (fax) Echocardiogram-[facility] Name: KRISTY DOHERTY Study Date: 04/19/2025 02:13 PM B/P: / HR: Date of : 1955 Location: [facility] Height: 68 in. Age: 69 year(s) Patient Room: 3183 Weight: 182 lb. Gender: Male Patient Status: InPt BSA: 1.96 m2 Indication: pericardialeffusion, h/o 35mm Watchman FLX Examination: Limited Echo Image Quality: Fair Findings Pericardium: Moderate pericardial effusion baseline. Post pericardiocentesis there is minimal pericardial effusion. Procedure Staff Reading Group: [facility] Referring Physician: RUDY KING ??Sql Data Architect: SAMI Starr, RDCS ??Ordering Physician: VENU SAMANIEGO Procedure Note Fani Denney MD - 04/19/2025 1 1 [facility] [address] [place] [address] [phone] (fax) Echocardiogram-[facility] Name: KRISTY DOHERTY Study Date: 04/19/2025 02:13 PM B/P: / HR: Date of : 1955 Location: [facility] Height: 68 in. Age: 69 year(s) Patient Room: 3183 Weight: 182 lb. Gender: Male Patient Status: InPt BSA: 1.96 m2 Indication: pericardialeffusion, h/o 35mm Watchman FLX Examination: Limited Echo Image Quality: Fair Findings Pericardium: Moderate pericardial effusion baseline. Post pericardiocentesis there is minimal pericardial effusion. Procedure Staff Reading Group: [facility] Referring Physician: RUDY KING Sql Data Architect: SAMI Starr, RDCS Ordering Physician: VENU SAMANIEGO Authorizing ProviderAmy TypeResult Page Samaniego [facility] ECHO PROCEDURESFinal Result * Pathology Review (04/19/2025 3:23 PM EDT)ComponentValueRef RangeTest Method Analysis TimePerformed AtPathologist SignaturePathology ReviewReviewed. . 04/20/2025 9:17 AM [facility] ([facility])Specimen (Source)Anatomical Location / LateralityCollection Method / VolumeCollection TimeReceived TimeFluid (Pericardial Fluid)Non-blood Collection / Bogvtfy2504/19/2025 3:23 PM EDT 04/19/2025 3:33 PM EDT Narrative Authorizing ProviderResult TypeResult StatusChstalin Samaniego MDLAB BLOOD ORDERABLESFinal ResultPerforming OrganizationAddressCity/State/ZIP CodePhone Number [facility] ([facility]) [address] [place] [address] * Body fluid cell differential (04/19/2025 3:23 PM EDT)ComponentValueRef Range Test MethodAnalysis TimePerformed AtPathologist SignatureTotal Cells Counted for Jkseayehzpvp10972/03/2025 9:17 AM [facility] ([facility])Neutrophils Manual, Zzmoh8402 9:17 AM [facility] ([facility])Lymphocytes Manual, Xlutv307 9:17 AM [facility] ([facility])Buchanan/Macrophage Manual, Fluid04/20/2025 9:17 AM [facility] ([facility])Eosinophils Manual, Fluid04/20/2025 9:17 AM [facility] ([facility])Basophils Manual, Fluid04/20/2025 9:17 AM [facility] ([facility])Mesothelial Manual, Fednw073 9:17 AM [facility] ([facility])Other Cells, BF Manual 04/20/2025 9:17 AM [facility] ([facility])Specimen (Source)Anatomical Location / LateralityCollection Method / VolumeCollection TimeReceived Time Fluid (Pericardial Fluid)Non-blood Collection / Aciavpl9504/19/2025 3:23 PM EDT 04/19/2025 3:33 PM EDT Narrative [facility] ([facility]) - 04/20/2025 9:17 AM EDT Differential performed on cytospin Authorizing ProviderResult TypeResult StatusChristopher Laurent KLEINLAB BODY FLUIDS AND STOOLS ORDERABLESFinal ResultPerforming OrganizationAddressCity/State/ZIP CodePhone Number [facility] ([facility]) [address] [place] [address] * (ABNORMAL) Body fluid cell count with differential (04/19/2025 3:23 PM EDT) ComponentValueRef RangeTest MethodAnalysis TimePerformed AtPathologist SignatureFluid Type Cell CountPericardial Fluid04/20/2025 9:17 AM [facility] ([facility])Fluid Atbzmy983pC19/03/2025 9:17 AM [facility] ([facility])RBC, Ehken628,940(H)0 - 1,000 RBC/uL04/20/2025 9:17 AM [facility] ([facility])Total Number of Nucleated Cells14,314TNC/uL04/20/2025 9:17 AM [facility] ([facility])Specimen (Source)Anatomical Location / LateralityCollection Method / VolumeCollection TimeReceived TimeFluid (Pericardial Fluid)Non-blood Collection / Vdrzxyv6904/19/2025 3:23 PM EDT 04/19/2025 3:33 PM EDT Narrative [facility] ([facility]) - 04/20/2025 9:17 AM EDT Reference Ranges for Total Number of Nucleated Cells: Cerebrospinal Fluid 0-5 TNC/uL Pleural Fluid 0-1,000 TNC/uL Peritoneal Fluid 0-100 TNC/uL Pericardial Fluid 0-1,000 TNC/uL Synovial Fluid 0-200 TNC/uL Reference Ranges for Erythrocytes in Body Fluid: Pleural Fluid 0-100,000 RBC/uL Peritoneal Fluid 0-50,000 RBC/uL Unspecified Fluid 0-1,000 RBC/uL Authorizing ProviderResult TypeResult StatusVenu MURRAY BODY FLUIDS AND STOOLS ORDERABLESFinal ResultPerforming OrganizationAddressCity/State/ZIP CodePhone Number [facility] ([facility]) [address] [place] [address] * Anaerobic culture (04/19/2025 3:23 PM EDT)ComponentValueRef RangeTest Method Analysis TimePerformed AtPathologist SignatureAnaerobic CultureNo anaerobes isolated at day 5 FLORA 04/25/2025 10:12 AM [facility] ([facility])Specimen (Source)Anatomical Location / LateralityCollection Method / VolumeCollection TimeReceived Time 04/19/2025 3:23 PM EDT1 3:33 PM EDT Narrative Authorizing ProviderResult TypeResult Page MURRAY MICROBIOLOGY - GENERAL ORDERABLESFinal ResultPerforming OrganizationAddress City/State/ZIP CodePhone Number [facility]) [address] [place] [address] * Non-senior software systems engineer cytology - cellular exam (04/19/2025 3:23 PM EDT)ComponentValueRef RangeTest MethodAnalysis TimePerformed AtPathologist SignatureCase ReportNon- gynecologic Cytology ?Case: [id number] ? Authorizing Provider: ??Venu Samaniego MD ? Collected: ? 04/19/2025 1523 ? Ordering Location: ? [facility] ?Received: ?04/19/2025 1533 ? Pathologist: ? Halima Marr MD ? Specimen: ?Pericardial Fluid ? 04/24/2025 5:46 PM [facility] ([facility])Final DiagnosisA. Pericardial fluid: - Negative for malignancy. - Marked acute inflammation.04/24/2025 5:46 PM [facility] ([facility]) at 1746 EDTMicroscopic DescriptionSatisfactory for evaluation. Examination of the ThinPrep slide and cell block reveals rare benign mesothelial cells and abundant acute inflammation.04/24/2025 5:46 PM [facility] ([facility])Clinical InformationPericardial ucsxzgdy88/07/2025 5:46 PM [facility] ([facility]) Gross Aonkotnwwvx674 mL opaque, red fluid04/24/2025 5:46 PM [facility] ([facility])Specimen (Source)Anatomical Location / LateralityCollection Method / VolumeCollection TimeReceived TimePericardial Fluid04/19/2025 3:23 PM EDT 04/19/2025 3:33 PM EDT Narrative Authorizing ProviderResult TypeResult StatusChristopher Laurent MURRAY CYTOLOGY ORDERABLESFinal ResultPerforming OrganizationAddressCity/State/ZIP CodePhone Number [facility] ([facility]) [address] [place] [address] * LEFT HEART CATH, RIGHT HEART CATH, [...] and a micropuncture access technique a 6 Burkinan sheath was placed in the right femoral [...] Details Pericardial effusion [I31.39] Authorizing ProviderResult TypeResult StatusChristopher Laurent MDC CARDIAC CATH PROCEDURESFinal Result * (ABNORMAL) POC Hb02% (04/19/2025 2:47 PM EDT) Only the most recent of2 resultswithin the time period is included. ComponentValueRef RangeTest MethodAnalysis TimePerformed AtPathologist Signature CYFMLB61%67.2(A)90 - 95 %QC Pass/FailPassedQC LOT #[id number] Expiration Date 73,126SAMPLESITEnlSpecimen (Source)Anatomical Location / LateralityCollection Method / VolumeCollection TimeReceived TimeBloodVenous blood specimen / Unknown 04/19/2025 2:47 PM EDT Narrative Farshad Ramirez MT - 04/20/2025 6:16 AM EDT Oper [id number] Authorizing ProviderResult TypeResult StatusOmar Samara MDPOINT OF CARE TEST ENTER/EDIT ORDERABLESFinal Result * Light Green Top (04/19/2025 2:44 PM EDT)ComponentValueRef RangeTest Method Analysis TimePerformed AtPathologist SignatureExtra TubeHold for add-ons. 04/19/2025 4:01 PM [facility]TG[facility] ([facility])Comment:Auto resulted.Specimen (Source)Anatomical Location / LateralityCollection Method / VolumeCollection TimeReceived TimeBloodVenous blood specimen / UnknownVenipuncture / Unknown 04/19/2025 2:44 PM EDT1 2:55 PM EDT Narrative Authorizing ProviderResult TypeResult Ta Pascual MDLAB BLOOD ORDERABLES Final ResultPerforming OrganizationAddressCity/State/ZIP CodePhone Number [facility] ([facility]) [address] [place], [place] [id number] * COLLIN (04/19/2025 2:44 PM EDT)ComponentValueRef RangeTest MethodAnalysis Time Performed AtPathologist SignatureANA Titer<1:40<=1:4010/01/2025 1:12 PM EDT [facility] ([facility])Comment:Test performed using DAVID IFA COLLIN Hep-2 Test, a pre-standardized assay designed for the qualitativeand semi- quantitative detection of antinuclear antibodies.Specimen (Source)Anatomical Location / LateralityCollection Method / VolumeCollection TimeReceived Time BloodVenous blood specimen / UnknownVenipuncture / Aupjgbs0304/19/2025 2:44 PM EDT1 2:54 PM EDT Narrative Authorizing ProviderResult TypeResult StatusChrisfrancesco Samaniego MDLAB BLOOD ORDERABLESFinal ResultPerforming OrganizationAddressCity/State/ZIP CodePhone Number [facility] ([facility]) [address] [place] [address] * Lavender Top (04/19/2025 2:32 PM EDT)ComponentValueRef RangeTest Method Analysis TimePerformed AtPathologist SignatureExtra TubeHold for add-ons. 04/19/2025 4:01 PM [facility]TG[facility] ([facility])Comment:Auto resulted.Specimen (Source)Anatomical Location / LateralityCollection Method / VolumeCollection TimeReceived TimeBloodVenous blood specimen / UnknownVenipuncture / Unknown 04/19/2025 2:32 PM EDT1 2:55 PM EDT Narrative Authorizing ProviderResult TypeResult StatusOmar Samara [facility] BLOOD ORDERABLES Final ResultPerforming OrganizationAddressCity/State/ZIP CodePhone Number [facility] ([facility]) [address] [place] [address] * COMPLETE ECHO (TTE) (04/19/2025 1:13 PM EDT)Anatomical RegionLaterality ModalityOtherSpecimen (Source)Anatomical Location / LateralityCollection Method / VolumeCollection TimeReceived Time04/19/2025 12:46 PM EDT Narrative 04/19/2025 1:44 PM EDT 1 1 [facility] Heart [facility] [address] [place] [address] [phone] (fax) Echocardiogram-[facility] Name: KRISTY DOHERTY Study Date: 04/19/2025 12:46 PM B/P: 97 mmHg/71 mmHg HR: Date of : 1955 Location: [facility] Height: 68 in. Age: 69 year(s) [...] early tamponade physiology. Procedure Staff Reading Group: [facility] Sql Data Architect: Bryanna Cazares RDCS ??Ordering Physician: HAKAN NICOLAS ?? Procedure Note Mitesh Vernon MD - 04/19/2025 1 1 [facility] Heart Station [address] [place] [address] [phone] (fax) Echocardiogram-[facility] Name: KRISTY DOHERTY Study Date: 04/19/2025 12:46 PM B/P: 97 mmHg/71 mmHg HR: Date of : 1955 Location: [facility] Height: 68 in. Age: 69 year(s) [...] early tamponade physiology. Procedure Staff Reading Group: [facility] Sql Data Architect: Bryanna Cazares RDCS Ordering Physician: HAKAN NICOLAS Authorizing ProviderResult TypeResult StatusHakan Nicolas PA-[facility]V ECHO PROCEDURES Final Result * High Sensitivity Troponin I (04/19/2025 12:14 PM EDT)ComponentValueRef Range Test MethodAnalysis TimePerformed AtPathologist SignatureHigh Sensitivity Troponin I7<20 ng/L1 2:02 PM [facility])Specimen (Source)Anatomical Location / LateralityCollection Method / VolumeCollection TimeReceived TimeBloodVenous blood specimen / UnknownVenipuncture / Unknown 04/19/2025 12:14 PM EDT1 12:35 PM EDT Narrative Authorizing ProviderResult TypeResult StatusMitesh Vernon MDWICHITA [facility] BLOOD ORDERABLESFinal ResultPerforming OrganizationAddressCity/State/ZIP CodePhone Number [facility]) [address] [place], [place] [phone] * Sedimentation rate (04/19/2025 12:14 PM EDT)ComponentValueRef RangeTest Method Analysis TimePerformed AtPathologist SignatureSed Rate18<20 mm/hr04/19/2025 3:37 PM [facility])Specimen (Source)Anatomical Location / LateralityCollection Method / VolumeCollection TimeReceived TimeBloodVenous blood specimen / UnknownVenipuncture / Axvolen4904/19/2025 12:14 PM EDT 04/19/2025 12:35 PM EDT Narrative Authorizing ProviderResult TypeResult StatusChstalin Saamniego [facility] BLOOD ORDERABLESFinal ResultPerforming OrganizationAddressCity/State/ZIP CodePhone Number [facility]) [address] [place] [address] * Creatinine, Serum (03/26/2025 2:43 PM EDT)ComponentValueRef RangeTest Method Analysis TimePerformed AtPathologist SignatureCreatinine0.950.70 - 1.30 mg/dL 03/26/2025 4:16 PM [facility])eGFR86.6>60.0 mL/min/1.73m*2 03/26/2025 4:16 PM [facility]TGALL[facility] ([place])Comment:[facility]???s estimated glomerular filtration rate (eGFR) [...] TimeBloodVenous blood specimen / Unknown Venipuncture / Mwnrvlc8403/26/2025 2:43 PM EDT03/26/2025 3:44 PM EDT Narrative Authorizing ProviderResult TypeResult StatusMeltomas Gutierrez [facility] BLOOD ORDERABLESFinal ResultPerforming OrganizationAddressCity/State/ZIP CodePhone Number [facility] ([place]) [address] [place] [address] from Last 3 Months Insurance Advance Directives * Full Code (Latest Code Status on File) Date ActivatedDate PzlvmtyomwaAcisohuz86/2/2025 11:51 AM05/04/2025 6:33 PM * Full Code Date ActivatedDate InactivatedComments02/06/2025 1:12 PM02/07/2025 5:23 PM * Full Code Date ActivatedDate QurevcwpdhzXevyfhzz81/15/2022 11:10 PM07/04/2022 3:19 PM Care Teams Team MemberRelationshipSpecialtyStart DateEnd Date Rudy King MD [address] [place] [address] PCP - Pucjhyz00/16/22
--- OUTSIDE RECORDS SUMMARY | 2025-05-14 15:00 | XMS_ITS ---
Author Organization [facility] Address [address] [place] [address] Care Team Providers Care Pilot Fuel Engineer Name Role Phone Rudy Guerra MD Primary Care Provider [phone] Active Problems ProblemNoted DateDiagnosed DateCardiogenic shock05/03/2025 Assessment & Plan (05/03/2025 12:13 PM EDT): - Required [place] Stacy and dobutamine in ICU. - Improving. [...] US neck. - Start doxy empirically. Sinus pgzatekiped49/06/2025 Assessment & Plan (05/03/2025 12:13 PM EDT): - Continue Toprol, Farxiga and spironolactone. - Hold Entresto due to LINDA. Assessment & Plan (04/24/2025 4:13 PM EDT): - Continue Toprol. - Hold Entresto and spironolactone due to hypotension. Assessment & Plan (04/23/2025 3:28 PM EDT): - Continue Toprol. - Hold Entresto and spironolactone due to hypotension. Right ventricular uxrckewqycm60/06/2025 Assessment & Plan (05/03/2025 12:13 PM EDT): - Required [place] Stacy and dobutamine in ICU. - Improving. Assessment & Plan (04/24/2025 4:13 PM EDT): - CTA chest showed no PE. - Right cath today. Assessment & Plan (04/23/2025 3:28 PM EDT): - We will order CTA chest due to tachycardia. - Left and right cath tomorrow. Hypotension due to cbrsceekqqa82/03/2025 Assessment & Plan (05/03/2025 12:13 PM EDT): [...] showed early tamponade. Patient was taken to curb and gutter laborer for Pericardiocentesis. Right heart cath was not suggestive for tamponade. 300 ml serosanguinous fluid. - Repeated echo showed mild effusion. Assessment & Plan (04/24/2025 4:13 PM EDT): - Echo showed early tamponade. Patient was taken to curb and gutter laborer for Pericardiocentesis. Right heart cath was not suggestive for tamponade. 300 ml serosanguinous fluid. - Monitor BP. - Continue colchicine per Cardiology. - Repeated echo showed mild effusion. Assessment & Plan (04/23/2025 3:28 PM EDT): - Echo showed early tamponade. Patient was taken to curb and gutter laborer for Pericardiocentesis. Right heart cath was not suggestive for tamponade. 300 ml serosanguinous fluid. - Monitor BP. - Continue colchicine per Cardiology. - Repeated echo showed mild effusion. Assessment & Plan (04/22/2025 8:13 PM EDT): - Echo showed early tamponade. Patient was taken to curb and gutter laborer for Pericardiocentesis. Right heart cath was not suggestive for tamponade. 300 ml serosanguinous fluid and pigtail was placed. - Monitor BP. - Continue colchicine per Cardiology. - Repeat echo on Monday 04/23. Assessment & Plan (04/21/2025 4:54 PM EDT): - Echo showed early tamponade. Patient was taken to curb and gutter laborer for Pericardiocentesis. Right heart cath was not suggestive for tamponade. 300 ml serosanguinous fluid and pigtail was placed. - Monitor BP. - Continue colchicine per Cardiology. - Follow up blood and fluid cx. - Repeat echo on Monday 04/23. Assessment & Plan (04/20/2025 12:20 PM EDT): - Echo showed early tamponade. Patient was taken to curb and gutter laborer for Pericardiocentesis. Right heart cath was [...] small pericardial effusion. Workup was negative for MT Daily Update: patient arrived from [place]. Pain has improved to 2/10 Today's Plan: will continue to control pain as necessary. Cardiology consulted for investigation ofwatchman and other etiologies. Will continue to monitor. NPO for now. Echo showed signs of cardiac tamponade. Patient taken to heart cath with plan for possible pericardiocentesis. Heart failure with reduced ejection hlmcmuak18/02/2025 Assessment & Plan (05/03/2025 2:05 PM EDT): [...] as well as daily weight checks. Pericardial yemqbvom82/02/2025 Assessment & Plan (05/03/2025 12:13 PM EDT): - Echo on admission showed early tamponade. Patient was taken to curb and gutter laborer for Pericardiocentesis. Right heart cath was not suggestive for tamponade. 300 ml serosanguinous fluid. - Repeated echo showed mild effusion. Assessment & Plan (04/24/2025 4:13 PM EDT): - Echo showed early tamponade. Patient was taken to curb and gutter laborer for Pericardiocentesis. Right heart cath was not suggestive for tamponade. 300 ml serosanguinous fluid. - Monitor BP. - Continue colchicine per Cardiology. - Repeated echo showed mild effusion. Assessment & Plan (04/23/2025 3:28 PM EDT): - Echo showed early tamponade. Patient was taken to curb and gutter laborer for Pericardiocentesis. Right heart cath was not suggestive for tamponade. 300 ml serosanguinous fluid. - Monitor BP. - Continue colchicine per Cardiology. - Repeated echo showed mild effusion. Assessment & Plan (04/22/2025 8:13 PM EDT): - Echo showed early tamponade. Patient was taken to curb and gutter laborer for Pericardiocentesis. Right heart cath was not suggestive for tamponade. 300 ml serosanguinous fluid and pigtail was placed. - Monitor BP. - Continue colchicine per Cardiology. - Repeat echo on Monday 04/23. Assessment & Plan (04/21/2025 4:54 PM EDT): - Echo showed early tamponade. Patient was taken to curb and gutter laborer for Pericardiocentesis. Right heart cath was not suggestive for tamponade. 300 ml serosanguinous fluid and pigtail was placed. - Monitor BP. - Continue colchicine per Cardiology. - Follow up blood and fluid cx. - Repeat echo on Monday 04/23. Assessment & Plan (04/20/2025 12:20 PM EDT): - Echo showed early tamponade. Patient was taken to curb and gutter laborer for Pericardiocentesis. Right heart cath was [...] small pericardial effusion. Workup was negative for MT Daily Update: patient arrived from [place]. Pain has improved to 2/10 Today's Plan: will continue to control pain as necessary. Cardiology consulted for investigation ofwatchman and other etiologies. Will continue to monitor. NPO for now. Echo showed signs of cardiac tamponade. Patient taken to heart cath with plan for possible pericardiocentesis. Iguvdrrqcubh35/02/2025 Assessment & Plan (04/20/2025 12:20 PM EDT): - Follow up urine Na and osmol. - Improving. Assessment & Plan (04/19/2025 1:19 PM EDT): Sodium 126 Will continue to monitor Urine sodium and serum osmolality ordered Ingisdaeuyyf13/02/2025trial qkigzlckkuec66/03/2025 Assessment & Plan (05/03/2025 12:13 PM EDT): [...] PM EDT): atrial fibrillation status post Watchman 7-2021- Will continue aspirin and plavix Will continue to monitor Paroxysmal atrial wxhmvtfozafj06/04/2024 Overview (01/06/2024): Last Assessment & Plan: In NSR and continue medication. Follow up with cardiology. Chronic rgstgxztwstb76Nasal polypICD (implantable cardioverter-defibrillator) in place09/15/2022 Assessment & [...] is due for interrogation this coming march Yjrepjbbettfbb91/14/2023 Overview (09/01/2022): Added automatically from request for surgery [id number] Assessment & Plan (05/03/2025 2:05 PM EDT): [...] (02/19/2023 1:06 PM EDT): As above Depressive gjubqwdq87/13/6363Utfxxnktvpns85/13/2023 Assessment & Plan (02/19/2023 1:06 PM EDT): Continue statin Wwscysnmpra71/13/2023Seasonal allergic nrcvgtih36/13/2023Steatosis of liver 08/31/2022Vitamin D zdnjaxfims07/13/2023oronary artery disease involving standing [place] coronary artery of standing rock heart with angina /19/2022 Assessment & Plan (05/03/2025 12:13 PM EDT): [...] statin therapy lipitor 40mg Chronic systolic heart guwdytt4207/06/2022 Assessment & Plan (01/06/2024 12:03 PM EDT): [facility]- currently EF improved from 25-30% to 40% Remains euvolemic and stable Continue GDMT- lipitor, farxiga, toprol, entresto and aldactone Diuretic therapy- continue farxiga Monitor daily weights, I&O, fluid restriction 1.5-2L/day, renal function and electrolytes- Currently stable - improved EF- continue all medications Assessment & Plan (02/19/2023 1:05 PM EDT): [facility] II- currently euvolemic without exacerbation Continue GDMT- ASA, lipitor, toprol, farxiga, aldactone and will increase entresto to 49-51 mg bid Repeat BMP in 1 week to assess renal function and electrolyes Diuretic therapy- farxiga- pt is euvolemic currently Monitor daily weights, I&O, fluid restriction 1.5-2L/day, renal function and electrolytes- History of malignant neoplasm of zzdxammt36/16/6995Dcvvqdmlxkonni29/16/2022 Primary bpyhyjbwzwqv06/16/2022 Assessment & Plan (05/03/2025 12:13 PM EDT): [...] Continue medications New onset of congestive heart ipgblku2207/02/2022 Assessment & Plan (07/06/2022 10:32 PM EST): [...] complexes he may no BiV ICD -continue qpsenqFU83co, entresto 24-, will add medications pending echo Syncope and bfrsrdyi37/15/2022 Overview (07/03/2022): Added automatically from request for surgery [id number] Uncomplicated osjboj0107/29/2012 Assessment & Plan (05/03/2025 12:13 PM EDT): [...] to our equivalent Mild persistent asthma without avaacuxjdaap00/11/2013 Overview (01/06/2024): Last Assessment & Plan: No SOB and continue advair. Use albuterol PRN. Benign essential ynrikvwwhqlc77Hyperlipidemia07/02/2008 05/11/2023 Assessment & Plan (01/06/2024 11:59 AM EDT): Script for liver function and lipid levels given to pt Continue statin Malignant tumor of yzeuzbld41 Current Treatment and Therapy Plans No current plan information found. Past Treatment and Therapy Plans No past plan information found. Lifetime Dose Tracking * ChemicalLifetime DoseAutomatic EntryManual EntryFluoro Time25.56 minutes0 .56 minutesAir Kerma2,028.5 mGy0 mGy2,028.5 mGy Resolved Problems ProblemNoted DateDiagnosed DateResolved DateHx of benign neoplasm of prostate
[2025-05-14 15:07] LABS: Anion Gap 15.6; Blood Urea Nitrogen 41.0 mg/dL (7.0-18.0); Calcium 9.8 mg/dL (8.5-10.1); Carbon Dioxide 26.3 mmol/L (21.0-32.0); Chloride 102 mmol/L (98-107); Estimated GFR (African America 52 (>=60 mL/min/1.73m^2); Estimated GFR (Non-African Ame 43 (>=60 mL/min/1.73m^2); Glucose 99 mg/dL (74-106); Potassium 4.9 mmol/L (3.5-5.1); Sodium 139 mmol/L (136-145)
[2025-05-14 15:25] LABS: NT Pro B Type Natriuretic Pept 3631.0 pg/mL (<=900.0)
== END 2025-05-14 14:19 | disposition home or self-care (01) ==
LOC: LAB 14:21
PROVIDERS: PCP Family Medicine
DX: I50.22 Chronic systolic (congestive) heart failure (principal); I42.8 Other cardiomyopathies
CPT/HCPCS: 36415; 80048; 83880

== ENCOUNTER 2025-05-31 13:35 | Inpatient (IN) | payer MEDICARE, SELFPAY ==
--- OUTSIDE RECORDS SUMMARY | 2025-05-23 08:47 | XMS_ITS | Continuity of Care Document ---
Author Organization [facility] Address [address] [place] [address] Phone Care Team Providers Care Out Of Town Collection Clerk Name Role Phone Valdemar Avila MD Attending Provider Provider, Outside Attending Provider Unavailable Rudy Guerra MD Primary Care Provider Elliott Nettles NP-C Attending Provider Rudy Guerra MD Attending Provider Celina Garner MD Attending Provider [phone] Care Teams Patient Care Team Team Status: Active Member Role/Relationship Status Dates Rudy Guerra MD Primary Care Provider Active Visit Care Team Team Status: Active Member Role/Relationship Status Dates Valdemar Avila MD Attending Provider Active St art: April 18, 2025 Visit Care Team Team Status: Active Member Role/Relationship Status Dates Valdemar Avila MD Attending Provider Active St art: April 19, 2025 Visit Care Team Team Status: Active Member Role/Relationship Status Dates Outside Provider Attending Provider Active Start : May 07, 2025 Visit Care Team Team Status: Active Member Role/Relationship Status Dates Rudy Guerra MD Primary Care Provider Active S tart: May 14, 2025 Elliott Nettles NP-CAttending ProviderActiveStart: May 14, 2025 Visit Care Team Team Status: Inactive Member Role/Relationship Status Dates Rudy Guerra MD Primary Care Provider Active S tart: May 16, 2025 End: May 16, 2025Rudy Guerra MDAttchel ProviderActiveStart: May 16, 2025 End: May 16, 2025 Patient Care Team Team Status: Inactive Member Role/Relationship Status Dates Rudy Guerra MD Primary Care Provider Active S tart: May 23, 2025 End: May 23Kyle Sadlerending ProviderActiveStart: May 23, 2025 End: May 23, 2025 Chief Complaint and Reason for Visit Chief Complaint Admit Date Hospital Followup May 16, 2025 9 :26am hypnatremia ref by Hay ledesma 2024 1:04pm Reason for Visit Admit Date Benign essential hypertension May 162024 9:26am Chronic HFrEF (heart failure with reduced ejection fraction) May 16, 2025 9:26am Coronary artery disease invo lving [place] coronary artery of [place] heart [place] May 16, 2025 9:26am Nonischemic cardiomyopathy May 16, 2025 9:26am PAF (paroxysmal atrial fibrillation) Oct jean claude 2024 9:26am Pericardial effusion May 16, 2025 9:26am Acute kidney injury May 23, 2025 1 :04pm Anemia May 23, 2025 1 :04pm Benign essential hypertension May 232024 1:04pm Chronic kidney disease, stage 3a Novembe r 2024 1:04pm Gout May 23, 2025 1 :04pm HFrEF (heart failure with reduced ejecti on fraction) May 23, 2025 1:04pm Hyponatremia May 23, 2025 1 :04pm Allergies, Adverse Reactions, Alerts Allergen Type Severity Reaction Last Updated Verified Status No Known Allergies Allergy Unknown May 23, 2025 1:08pmYesActive Social History Smoking Status Status Start Date End Date Date of Observa tion Ex-smoker (finding) May 23, 2025 1:14pm Observation Status Observation Response Date of Response Legal Sex [facility] (finding) [facility] Problems Active Problems Problem Diagnosis/Recorded Date Onset Date Stat us Acute kidney injury May 23, 2025 1:04pm Unknown Active HFrEF (heart failure with re duced ejection fraction) May 23, 2025 1:05pm Unknown Active Mild persistent asthma witho ut complication April 20, 2025 8:37am Unknown Active Chronic pansinusitis April 20, 2025 8:35am Unknown Active Allergic rhinitis due to pollen April 20, 2025 8:34 am Unknown Active Malignant tumor of prostate April 20, 2025 8:37am U nknown Active Gout May 23, 2025 1:05pm Unknown Ac tive Steatosis of liver April 20, 2025 8:38am Unknown Active Benign essential hypertension April 20, 2025 8:35am Unknown Active Dyslipidemia April 20, 2025 8:36am Unknown Act johana Anemia May 23, 2025 1:36pm Unknown Ac tive Hyperlipidemia April 20, 2025 8:36am Unknown A ctive Hyponatremia May 23, 2025 1:25pm Unknown Ac tive Nonischemic cardiomyopathy April 20, 2025 8:37am Un known Active Chronic HFrEF (heart failure with reduced ejection fraction) April 20, 2025 8:35am Unknown Active Nasal polyp April 20, 2025 8:37am Unknown Act johana Pericardial effusion May 16, 2025 8:51am Unknown Active Coronary artery disease invo lving [place] coronary artery of [place] heart without angina pectoris April 20, 2025 8:36am Unknown Active Prediabetes April 20, 2025 8:37am Unknown Act johana PAF (paroxysmal atrial fibrillation) April 20, 2025 8:37am Unknown Active Chronic kidney disease, stage 3a May 23, 2025 1: 04pm Unknown Active ICD (implantable cardioverter-defibrillator) in place April 20, 2025 8:36am Unknown Active Depressive disorder April 20, 2025 8:36am Unknown Active Seasonal allergic rhinitis April 20, 2025 8:37am Un known Active Vitamin D deficiency April 20, 2025 8:38am Unknown Active Medications Medication Status Dose Units Route Directions Qty Days Refills S tart Date Stop Date End Date Reason(s) Instructions Adherence Albuterol Sulfate 90 mcg/actuation HFA aerosol inhaler Active 2 PUFF INHALATION Six times daily as needed for shortness of breath or wheezing 8.5 3September 2024 11:00pmComplies with drug therapyAtorvastatin 40 mg tablet Ejqanq99SHQQUfqprJujqben 2024 11:00pmComplies with drug therapyMetoprolol Succinate 50 mg tablet extended release 24 grUzhvmabiylrx61APNESnkvcGklqqwq 2024 11:00pmNovember 2024 1:12pmSpironolactone 25 mg hzcikfPpogje58PFXI DailyOctober 2024 11:00pmComplies with drug therapyFluticasone Propion- Salmeterol 500-50 mcg/dose blister with zgasxwPdqoruxmsfed2BRPOPHLYXTDUDOfiak dailyOctober 2024 11:00pmOctober 2024 8:38amAllopurinol 300 mg tablet Ramqys550GNJDQwcxkYjmfcea 2024 11:00pmComplies with drug therapyAlbuterol Sulfate 90 mcg/actuation HFA aerosol nvjdbzvNwuqfi8QDDJIQVUEYGBOEZgecg 4 hours as neededOct2024 11:00pmComplies with drug therapyFluticasone Furoate 27.5 mcg/actuation spray,kshcmwkvltOfmllzcgiaah3DUIPEBRVOLAUAIAFwdmfTqatmgi 2024 11:00pmOctober 2024 8:38aminto each nostrilApixaban (Eliquis) 5 mg flmqnoEtxyxissqwin1OAZFZeuue dailyOctober 2024 11:00pmOctober 2024 8:36amDapagliflozin Propanediol (Farxiga) 10 mg rugugiTrasyp73IAJWHgheuCjchaps 2024 11:00pmComplies with drug therapySacubitril-Valsartan 49-51 mg tablet Csfewazrhikz6SBHOEOoxpx dailyOctober 2024 11:00pmOctober 2024 8:39am Dupilumab (Dupixent Pen) 300 mg/2 mL pen lyrnufbnZcjkhs329KFTOEXGEKOQPP 2 WEEKS April 19, 2025 11:00pmComplies with drug therapyMetoprolol Succinate 25 mg tablet extended release 24 knRjlnuc67.5MGPOdailyNovbanner [facility] 2024 12:00am Complies with drug therapyClopidogrel 75 mg nqckvyMwmoes91AIHRDmyufJdjvdnq 2024 11:00pmComplies with drug therapyAcetaminophen (Tylenol Extra Strength) 500 mg zucsvpWoxoye163EBUWPxxul 6 hours as neededOctober 2024 11:00pmComplies with drug therapyFluticasone Propion-Salmeterol (Advair Diskus) 500-50 mcg/dose blister with cxbnstVcwyma9MNDOPFJFPZNNIPpqgu dailyOctober 2024 11:00pm Complies with drug therapyAspirin 81 mg cukoqoOidfcn56PSUMMwzihMhqcrsf 2024 11:00pmComplies with drug therapyFurosemide 20 mg plbifqLxadlajzyhpb83XFRR DailyOctober 2024 11:00pmMay 23, 2025 1:12pmColchicine 0.6 mg tablet ActiveMGPODailyOctober 2024 11:00pmComplies with drug therapyFluticasone Propionate 50 mcg/actuation spray,suspensionDiscontinuedINTRANASALOctober 2024 11:00pmMay 23, 2025 1:12pmFluticasone Propionate 50 mcg/actuation spray,zgggiaayovGrubjx7JFGCCBKARIBLCMNGzvrt dailyMay 23, 2025 1:10pm Complies with drug therapyFurosemide 20 mg ntocprHavmid78WXEAKfyszRbgtrkcv 5th, 2025 1:10pmComplies with drug therapy Relevant Diagnostic Tests and/or Laboratory Data Laboratory Results Test Collection Date/Time Result Date/Time Result Interpretation Reference Range Result Comment Performing Site B-Type Natriuretic Peptide April 18, 2025 10:25pm April 18, 2025 10:25pm 332.0 pg/mL <=900.0Troponin I High SensitivityOct2024 10:25pmOctober 2024 10:25pm11.5 pg/mL4.0-76.1CUT-OFF POINTS HAVE BEEN ESTABLISHED BASED ON THE FOURTHUNIVERSAL DEFINITION OF MYOCARDIAL INFARCTION. THE UPPERREFERENCE LIMIT (URL) OF TROPONIN, DEFINED THE 99THPERCENTILE OF cTnI DISTRIBUTION IN A REFERENCE POPULATION,HAS BEEN CONFIRMED THE DECISION THRESHOLD FOR MIDIAGNOSIS.99TH PERCENTILE = 76.2 PG/MLNOTE: HIGH-SENSITIVITY TROPONIN ASSAY IS NOT INTENDED TO BEUSED IN ISOLATION BUT SHOULD BE INTERPRETED IN CONJUNCTIONWITH OTHER DIAGNOSTIC AND CLINICAL INFORMATION.Anion GapOct2024 10:25pm April 18, 2025 10:25pm15.7Basophils # (Auto)April 18, 2025 10:25pmOctober 2024 10:25pm0.0 10 3/uL0.0-0.1Troponin I High SensitivityOctober 2024 12:30amOctober 2024 12:30am10.5 pg/mL4.0-76.1CUT-OFF POINTS HAVE BEEN ESTABLISHED BASED ON THE FOURTHUNIVERSAL DEFINITION OF MYOCARDIAL INFARCTION. THE UPPERREFERENCE LIMIT (URL) OF TROPONIN, DEFINED THE 99THPERCENTILE OF cTnI DISTRIBUTION IN A REFERENCE POPULATION,HAS BEEN CONFIRMED THE DECISION THRESHOLD FOR MIDIAGNOSIS.99TH PERCENTILE = 76.2 PG/MLNOTE: HIGH-SENSITIVITY TROPONIN ASSAY IS NOT INTENDED TO BEUSED IN ISOLATION BUT SHOULD BE INTERPRETED IN CONJUNCTIONWITH OTHER DIAGNOSTIC AND CLINICAL INFORMATION.SARS-CoV-2 Ag (CV2AG)April 19, 2025 4:30amOctober 2024 4:30amNEGATIVENEGATIVEThis test has not been FDA cleared or approved, but has beenauthorized by the FDA under an Emergency Use Authorization(EUA) for use by authorized laboratories certified underIA that meet the requirements to perform moderate or highcomplexity testing. This test has been authorized only forthe detection of proteins from SARS-CoV-2, not for any otherviruses or pathogens. The emergency use of this t est isauthorized for the duration of the declaration thatcircumstances exist justifying the authorization ofemergency use of in vitro diagnostic tests for detectionand/or diagnosis of Covid-19 under section 564(b)(1) of theAct, 21 U.S.C. 360bbb-3(b)(1), unless the declaration isterminated or authorization is revoked sooner.Bedside Influenza Type A AntigenOct2024 4:30amOctober 2024 4:30amNegativeNegative for Flu A protein antigen. Infection due to Flu Acannot be ruled out. Flu A antigen in thesample may bebelow the detection limit of the test.Anion GapOct2024 6:58amOctober 2024 6:58am14.9 Basophils # (Auto)May 07, 2025 6:58amOctober 2024 6:58am0.0 10 3/uL 0.0-0.1B-Type Natriuretic PeptideOct2024 1:38pmOctober 2024 1:75yz2047.0 pg/mLAbove upper panic limits<=900.0RESULTS CALLED TO CEFERINO CURRY Anion GapOctober 2024 1:38pmOctober 2024 1:38pm15.6BUN/Creatinine RatioOct2024 10:25pmOctober 2024 10:25pm16.0Basophils (%) (Auto) April 18, 2025 10:25pmOctober 2024 10:25pm0.3 %0.2-2.0Bedside Influenza Type B AntigenOct2024 4:30amOctober 2024 4:30amNegativeNegative for Flu B protein antigen. Infection due to Flu Bcannot be ruled out. Flu B antigen in thesample may bebelow the detection limit of the test.BUN/Creatinine RatioOct2024 6:58amOctober 2024 6:58am19.7Basophils (%) (Auto) May 07, 2025 6:58amOctober 2024 6:58am0.3 %0.2-2.0BUN/Creatinine RatioOctober 2024 1:38pmOctober 2024 1:38pm25.6Blood Urea Nitrogen April 18, 2025 10:25pmOctober 2024 10:25pm15.0 mg/dL7.0-18.0Eosinophils # (Auto)April 18, 2025 10:25pmOctober 2024 10:25pm0.0 10 3/uL0.0-0.7 Blood Urea NitrogenOctober 2024 6:58amOctober 2024 6:58am31.0 mg/dL Above high normal7.0-18.0Eosinophils # (Auto)May 07, 2025 6:58amOctober 2024 6:58am0.1 10 3/uL0.0-0.7Blood Urea NitrogenOctober 2024 1:38pm May 14, 2025 1:38pm41.0 mg/dLAbove high normal7.0-18.0Calcium LevelOct2024 10:25pmOctober 2024 10:25pm10.4 mg/dLAbove high normal8.5-10.1 Eosinophils (%) (Auto)April 18, 2025 10:25pmOctober 2024 10:25pm0.1 % Below low normal0.9-7.0Calcium LevelOctober 2024 6:58amOctober 2024 6:58am9.0 mg/dL8.5-10.1Eosinophils (%) (Auto)May 07, 2025 6:58amOctober 2024 6:58am1.2 %0.9-7.0Calcium LevelOctober 2024 1:38pmOctober 2024 1:38pm9.8 mg/dL8.5-10.1Chloride LevelOctober 2024 10:25pmOct2024 10:25pm86 mmol/LBelow low oufxfb83-831QnbzbuvqufZzunptq 2024 10:25pm April 18, 2025 10:25pm41.3 %Below low ijpaef07.0-54.0Chloride LevelOctober 2024 6:58amOct2024 6:20pp693 mmol/J87-119HcxvnrfjagHwpcjio 2024 6:58amOctober 2024 6:58am33.4 %Below low mfqraq31.0-54.0 Chloride LevelOctober 2024 1:38pmOctober 2024 1:22ig977 mmol/L98-107 Carbon Dioxide LevelOctober 2024 10:25pmOctober 2024 10:25pm25.4 mmol/L21.0-32.0HemoglobinOctober 2024 10:25pmOct2024 10:25pm14.6 g/dL14.0-18.0Carbon Dioxide LevelOctober 2024 6:58amOctober 2024 6:58am25.3 mmol/L21.0-32.0HemoglobinOctober 2024 6:58amOctober 2024 6:58am11.3 g/dLBelow low uhwcqe62.0-18.0Carbon Dioxide LevelOctober 2024 1:38pmOctober 2024 1:38pm26.3 mmol/L21.0-32.0CreatinineOct2024 10:25pmOctober 2024 10:25pm0.94 mg/dL0.70-1.30Immature Granulocyte # (Auto) April 18, 2025 10:25pmOctober 2024 10:25pm0.02 10 3/uL0.00-0.03 CreatinineOct2024 6:58amOctober 2024 6:58am1.57 mg/dLAbove high normal0.70-1.30Immature Granulocyte # (Auto)May 07, 2025 6:58amOctober 2024 6:58am0.02 10 3/uL0.00-0.03CreatinineOctober 2024 1:38pmOctober 2024 1:38pm1.60 mg/dLAbove high normal0.70-1.30Estimated GFR ()April 18, 2025 10:25pmOctober 2024 10:25pm>60>=60 mL/min/1.73m 2Immature Granulocyte % (Auto)April 18, 2025 10:25pmOctober 2024 10:25pm 0.2 %0.0-0.5Estimated GFR ()May 07, 2025 6:58amOctober 2024 6:97de81Nkxpq low normal>=60 mL/min/1.73m 2Immature Granulocyte % (Auto)May 07, 2025 6:58amOctober 2024 6:58am0.3 %0.0-0.5Estimated GFR ()May 14, 2025 1:38pmOctober 2024 1:13fk89Lgppx low normal>=60 mL/min/1.73m 2Estimated GFR (Non- AmericanOct2024 10:25pmOctober 2024 10:25pm>60>=60 mL/min/1.73m 2Lymphocytes # (Auto) April 18, 2025 10:25pmOctober 2024 10:25pm1.2 10 3/uL1.2-3.8Estimated GFR (Non- AmericanOctober 2024 6:58amOctober 2024 6:58am44 Below low normal>=60 mL/min/1.73m 2Lymphocytes # (Auto)May 07, 2025 6:58am May 07, 2025 6:58am1.9 10 3/uL1.2-3.8Estimated GFR (Non- May 14, 2025 1:38pmOctober 2024 1:45yq55Jvyen low normal>=60 mL/min/1.73m 2Glucose LevelOct2024 10:25pmOctober 2024 10:01rv396 mg/dLAbove high tkarhd84-279Rlwvwonkcjh (%) (Auto)April 18, 2025 10:25pm April 18, 2025 10:25pm13.3 %Below low zikkci61.5-60.0Glucose LevelOct2024 6:58amOctober 2024 6:58am98 mg/jU40-216Dwcilvvgubl (%) (Auto) May 07, 2025 6:58amOctober 2024 6:58am28.5 %20.5-60.0Glucose Level May 14, 2025 1:38pmOctober 2024 1:38pm99 mg/dE69-552Rkscnenyv Level April 18, 2025 10:25pmOctober 2024 10:25pm4.1 mmol/L3.5-5.1Mean Corpuscular HemoglobinOct2024 10:25pmOctober 2024 10:25pm32.1 pg 25.9-34.0Potassium LevelOct2024 6:58amOctober 2024 6:58am4.2 mmol/L3.5-5.1Mean Corpuscular HemoglobinOctober 2024 6:58amOctober 2024 6:58am31.4 pg25.9-34.0Potassium LevelOct2024 1:38pmOctober 2024 1:38pm4.9 mmol/L3.5-5.1Sodium LevelOct2024 10:25pmOctober 2024 10:99nz358 mmol/LBelow lower panic yckgwc979-751IDWZZCP CALLED TO GRETCHEN GUZMAN RN @BY Devika Valdez at 0008Mean Corpuscular Hemoglobin Concent April 18, 2025 10:25pmOctober 2024 10:25pm35.4 g/dLAbove high normal 29.9-35.2Sodium LevelOctober 2024 6:58amOctober 2024 6:22cg384 mmol/Z231-103Ourm Corpuscular Hemoglobin ConcentOct2024 6:58amOctober 2024 6:58am33.8 g/dL29.9-35.2Sodium LevelOctober 2024 1:38pmOctober 2024 1:42ov462 mmol/S590-276Tfhw Corpuscular VolumeOctober 2024 10:25pmOctober 2024 10:25pm90.8 fL80.0-94.0Mean Corpuscular VolumeOctober 2024 6:58amOctober 2024 6:58am92.8 fL80.0-94.0Monocytes # (Auto) April 18, 2025 10:25pmOctober 2024 10:25pm1.2 10 3/uLAbove high normal 0.3-0.8Monocytes # (Auto)May 07, 2025 6:58amOctober 2024 6:58am0.9 10 3/uLAbove high normal0.3-0.8Monocytes (%) (Auto)April 18, 2025 10:25pm April 18, 2025 10:25pm13.8 %Above high normal1.7-12.0Monocytes (%) (Auto) May 07, 2025 6:58amOctober 2024 6:58am13.9 %Above high normal 1.7-12.0Mean Platelet VolumeOctober 2024 10:25pmOctober 2024 10:25pm 10.4 fL9.5-13.5Mean Platelet VolumeOctober 2024 6:58amOctober 2024 6:58am10.5 fL9.5-13.5Neutrophils # (Auto)April 18, 2025 10:25pmOctober 2024 10:25pm6.4 10 3/uL1.4-6.5Neutrophils # (Auto)May 07, 2025 6:58am May 07, 2025 6:58am3.7 10 3/uL1.4-6.5Neutrophils (%) (Auto)April 18, 2025 10:25pmOctober 2024 10:25pm72.3 %43.0-75.0Neutrophils (%) (Auto) May 07, 2025 6:58amOctober 2024 6:58am55.8 %43.0-75.0Platelet Count April 18, 2025 10:25pmOctober 2024 10:65ow374 10 3/dF622-850Xtnvoopw CountOct2024 6:58amOctober 2024 6:27wv520 10 3/rZ602-242Ecy Blood CountOctober 2024 10:25pmOctober 2024 10:25pm4.55 10 6/uLBelow low normal4.70-6.10Red Blood CountOctober 2024 6:58amOctober 2024 6:58am3.60 10 6/uLBelow low normal4.70-6.10Red Cell Distribution WidthOct2024 10:25pmOctober 2024 10:25pm13.2 %11.0-15.0Red Cell Distribution WidthOctober 2024 6:58amOctober 2024 6:58am14.5 %11.0-15.0Corrected White Blood CountOctober 2024 10:25pmOctober 2024 10:25pm8.9 10 3/uL 4.0-11.0Corrected White Blood CountOctober 2024 6:58amOctober 2024 6:58am6.6 10 3/uL4.0-11.0 Vital Signs Vital Reading Result Reference Range Collection Date/Time Height 68 [in_i] May 16, 2025 8:56gnRjdnnh50.65 kgOctober 2024 8:34amBody Temperature 97.1 [degF]97.6-99.0October 2024 8:34amHeart Xasd076 /idl34-971Fyezsga 2024 8:34amRespiratory rate20 /jkm32-13Vatlusu 2024 8:34amOxygen saturation by Pulse bazafoky77 %95-100October 2024 8:34amBP Bgomltzc544 mm[Hg]100-140October 2024 8:34amBP Mtkmwqzag65 mm[Hg]60-100October 2024 8:34amBMI (Body Mass Index)25.7 kg/m4Zuszfea 2024 8:02bvOcrltf30 [in_i]May 23, 2025 1:85ymTksacc73.84 kgNov2024 1:08pmHeart Rate 76 /nxx27-778Bxgljwsz 5th, 2025 1:08pmRespiratory rate16 /pkk70-27Irsipbjt 5th, 2025 1:08pmOxygen saturation by Pulse wircvuwi91 %95-100Nov2024 1:08pmBP Uvkeuchr65 mm[Hg]100-140Nov2024 1:08pmBP Qpznfprkp24 mm[Hg] 60-100November 2024 1:08pmBMI (Body Mass Index)25.0 kg/n7Bjawxnfv2024 1:08pm Advance Directives Advance Directive Response Recorded Date/ Time Advance Directives No December 08 1:35pm Insurance Providers Guarantor Manas Doherty Address [address] [facility] [address] Info.Home Phone: Payer Group Member ID Coverage Type Subscriber Relationship to Subscriber Effective Date Expiration Date Jordan GUILLERMO/SAMI Id: [id number] [place] Id: [id number] [address] [facility] [address] Home Phone: selfMedicare [id number] [place] Id: [id number] [address] [facility] [address] Home Phone: selfAARP Medicare Advantage PFF[place] Id: [id number] [place] Id: [id number] [address] [address] Home Phone: self Encounters Encounter Location(s) Arrival/Admit Date Discharge/Departure Date Discharge/Departure Disposition Provider(s) Non-patient / Non-visit -[facility] O ctober 2024 11:25pm Laron Schaefer-patient / Fws-cntjl-[facility]nzi [facility] 2024 1:30amLaron Schaefer-patient / Zje-xnlko-Nazng [facility] 2024 7:58amOutside ProviderNon-patient / Non-visit- [facility] 2024 2:38pmElliott Nettles NP-CDeparted Physician/Provider Office Visit-[facility] 2024 9:26amOctober 2024 10:23amDischarged to home care or self care (routine discharge)Rudy Guerra MDDeparted Physician/Provider [facility] 1:04pmNovember 2024 1:46pmDischarged to home care or self care (routine discharge)Celina Garner MD Recent Diagnosis Onset Date Admit Date Benign essential hypertension Unknown Oc tober 2024 9:26am Chronic HFrEF (heart failure with reduced ejection fraction) Unknown May 16, 2025 9:26am Coronary artery disease invo lving [place] coronary artery of [place] heart [place] Unknown May 16, 2025 9:26am Nonischemic cardiomyopathy Unknown Octob er 2024 9:26am PAF (paroxysmal atrial fibrillation) Unknown May 16, 2025 9:26am Pericardial effusion Unknown April 9:26am Acute kidney injury Unknown May 1:04pm Anemia Unknown May 23 1:04pm Benign essential hypertension Unknown No vember 2024 1:04pm Chronic kidney disease, stage 3a Unknown May 23, 2025 1:04pm Gout Unknown May 23 1:04pm HFrEF (heart failure with re duced ejection fraction) Unknown May 23, 2025 1:04pm Hyponatremia Unknown May 23 1:04pm Assessments Diagnosis Onset Date Resolution Status Admit Date Benign essential hypertension acuteOctober 2024 9:26amChronic HFrEF (heart failure with reduced ejection fraction)acuteOctober 2024 9:26amCoronary artery disease involving [place] coronary artery of [place] heart wiacuteOctober 2024 9:26amNonischemic cardiomyopathyacuteOctober 2024 9:26amPAF (paroxysmal atrial fibrillation) acuteOctober 2024 9:26amPericardial effusionacuteOctober 2024 9:26am Acute kidney injuryacuteNov2024 1:04pmAnemiaacuteNovember 2024 1:04pmBenign essential hypertensionacuteNov2024 1:04pmChronic kidney disease, stage 3aacuteNov2024 1:04pmGoutacuteNovember 2024 1:04pmHFrEF (heart failure with reduced ejection fraction)acuteNov2024 1:04pmHyponatremiaacuteNov2024 1:04pm Plan of Treatment Author [facility] 9:15amRecent admission and improved. Continue medication and follow with cardiology. Recent admission and improved. Continue medication and follow with cardiology. Recent admission and improved. Continue medication and follow with cardiology. In NSR and continue medication. Follow with cardiology. Recent admission and improved. Continue medication and follow with cardiology. BP controlled and monitor PRN. Future Tests Future scheduled test information is unavailable Pending Tests Test Name Ordered Date Scheduled Date Renal Function Panel May 23, 2025 1:36pm 4 Months US renal BI May 23, 2025 1:39pm 4 Memo hs Future Visits Future appointment information is unavailable Future Procedures Procedure Name Ordered Date Scheduled Date Hemogram CBC Without Diff May 23, 2025 1:3 6pm 4 Months Iron and TIBC Profile May 23, 2025 1:36pm 4 Months Ferritin May 23, 2025 1:36pm 4 Memo hs Magnesium May 23, 2025 1:36pm 4 Memo hs MicroAlb Creat Ratio,U May 23, 2025 1:36pm 4 Months Protein Creat Ratio Ur Random May 23, 2025 1:36pm 4 Months Parathyroid Hormone Intact May 23, 2025 1: 36pm 4 Months Urinalysis May 23, 2025 1:36pm 4 Memo hs Uric Acid May 23, 2025 1:36pm 4 Memo hs Vit. B12/Folate Profile May 23, 2025 1:36p m 4 Months Vitamin D 25 Hydroxy Total May 23, 2025 1: 36pm 4 Months Future Medications Future medication information is unavailable Patient Instructions Patient instructions are unavailable
--- OUTSIDE RECORDS SUMMARY | 2025-05-24 10:35 | XMS_ITS | Encounter Summary ---
Author Organization [facility] Address [address] [place] [address] Care Team Providers Care Custom Bookbinder Name Role Phone Rudy Guerra MD Primary Care Provider Encounter Details DateTypeDepartmentCare Team (Latest Contact Info)Yflbixmsazf94/06/2025 10:35 AM ESTAncillary Procedure [facility] [address] [place] [phone] Pre-operative cardiovascular examination, ICD in place Social History Tobacco UseTypesPacks/DayYears UsedDateSmoking Tobacco: FormerCigarettes Smokeless Tobacco: NeverAlcohol UseStandard Drinks/LgfiArzndzwcDmq75 (1 standard drink = 0.6 oz pure [...] housing, medical care, and heating?Not hard at all04/19/2025UT Safety & EnvironmentAnswerDate RecordedFear of Current or Ex-PartnerNot on file09/09/2023Emotionally AbusedNot on file02/ Physically AbusedNot on file09/09/2023Sexually AbusedNot on file09/09/2023 Physically or Sexually AbusedNot on file09/09/2023TransportationAnswerDate RecordedIn the past 12 months, has lack of transportation kept you from medical appointments or from getting medications?No04/19/2025Lack of Transportation (Non-Medical)Not on file04/19/2025Housing Stability Vital SignAnswerDate RecordedIn the last 12 months, was there a time when you were not able to pay the mortgage or rent on time?No04/19/2025Number of Times Moved in the Last Year Not on file04/19/2025t any time in the past 12 months, were you homeless or living in a assisted (including now)?No04/19/2025Hunger Vital SignAnswerDate RecordedWithin the past 12 months, you worried that your food would run out before you got the money to buymore.Never true04/19/2025Ran Out of Food in the Last YearNot on file04/19/2025Sex and Gender InformationValueDate RecordedSex Assigned at VefyiVstf61/06/2025 8:51 AM EDTLegal JtnKcwk4901/14/2022 10:53 PM EDT Gender YktxljxeTkwa96/06/2025 8:51 AM EDTSexual OrientationHeterosexual or Vbjpasmx18/06/2025 8:51 AM EDTdocumented as of this encounter Plan of Treatment DateTypeDepartmentCare Team (Latest Contact Info)Gowcpfasfyf59/02/2025 9:00 AM ESTOffice Visit [place] [address] [place] [address] Bobo Raymond MD [address] [place] [address] 06/22/2025 10:00 AM ESTOffice Visit [facility] [address] [place] [address] Hay William MD [address] [facility] [address] [place] [address] documented as of this encounter Procedures Procedure NamePriorityDate/TimeAssociated DiagnosisCommentsCARDIAC DEVICE CHECK CHECK - IMHHZASeynaoz56/04/2025 10:04 AM EST Pre-operative cardiovascular examination, ICD in place documented in this encounter Results * CARDIAC DEVICE CHECK - REMOTE - ICD (05/22/2025 10:04 AM EST)Specimen (Source) Anatomical Location / LateralityCollection Method / VolumeCollection Time Received Time Narrative Authorizing ProviderResult TypeResult StatusPaul Segundo MDCV IMPLANTABLE CARDIAC DEVICE PROCEDURESFinal ResultPerforming OrganizationAddressCity/State/ZIP Code Phone Number CPACS documented in this encounter Visit Diagnoses Diagnosis Pre-operative cardiovascular examination, ICD in place Pre-operative cardiovascular examination documented in this encounter Care Teams Team MemberRelationshipSpecialtyStart DateEnd Date Rudy Guerra MD [address] [place] [address] PCP - Dlfrlfj90/16/22documented as of this encounter
--- OUTSIDE RECORDS SUMMARY | 2025-05-24 10:35 | XMS_ITS | Encounter Summary ---
Author Organization [facility] Address [address] [address] Care Team Providers Care Contract Attorney Name Role Phone Rudy Guerra MD Primary Care Provider [phone] Encounter Details DateTypeDepartmentCare Team (Latest Contact Info)Pefetsrtzvl19/06/2025 10:35 AM ESTAncillary Procedure [facility] [address] [place] [phone] Pre-operative cardiovascular examination, ICD in place Social History Tobacco UseTypesPacks/DayYears UsedDateSmoking Tobacco: FormerCigarettes Smokeless Tobacco: NeverAlcohol UseStandard Drinks/DltzAznhjfmvPdz40 (1 standard drink = 0.6 oz pure [...] in [place] (including [place])?No04/19/2025Hunger Vital SignAnswerDate RecordedWithin the past 12 months, you worried that your food would run out before you got the money to buymore.Never true04/19/2025Ran Out of Food in the Last YearNot on file04/19/2025Sex and Gender InformationValueDate RecordedSex Assigned at QytobMnzy44/06/2025 8:51 AM EDTLegal OheXede5601/14/2022 10:53 PM EDT Gender IqshuxxbZgsk03/06/2025 8:51 AM EDTSexual OrientationHeterosexual or Qtrujvcz28/06/2025 8:51 AM EDTdocumented as of this encounter Plan of Treatment DateTypeDepartmentCare Team (Latest Contact Info)Xkukrhswdev94/02/2025 9:00 AM ESTOffice Visit [place] [address] [place] [address] Bobo Raymond MD [address] [place] [address] 06/22/2025 10:00 AM ESTOffice Visit [facility] [address] [place] [address] Hay William MD [address] [facility] [address] [place] [address] NamePriorityAssociated DiagnosesDate/TimeCORONARY ANGIOGRAPHY Valvular endocarditis RIGHT HEART CATH Valvular endocarditis documented as of this encounter Procedures Procedure NamePriorityDate/TimeAssociated DiagnosisCommentsCARDIAC DEVICE CHECK CHECK - OAUEONYvsbjds38/04/2025 10:04 AM EST Pre-operative cardiovascular examination, ICD [...] DateEnd Date Rudy Guerra MD [address] [place] [address] PCP - Twodobp53/16/22documented as of this encounter
[2025-05-31] VITALS (37 sets, daily range): BP systolic 104–130; BP diastolic 68–89; PULSE 104–122; TEMP 36.7–37.2; O2SAT 87–100; BMI 21.0; BMI 21.7
--- NOTE | 2025-05-31 14:21 | ECG_ITS ---
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 Measurements Intervals [place] Rate: 121 P: 54 OK: 174 QRS: 19 QRSD: 116 T: 90 QT: 346 QTc: 418 Interpretive Statements 1120 Sinus tachycardia 3114 Cannot rule out anterior myocardial infarction, age undetermined Nonspecific T wave changes 6220 Possible left atrial enlargement 0102 ARTIFACT PRESENT 9150 abnormal ECG Compared to ECG 04/18/2025 23:53:13 Sinus rhythm no longer present Ventricular premature complex(es) no longer present Myocardial infarct finding still present Electronically Signed On 05-31-2025 18:40:03 EST by BORIS KIM M.D.
--- NOTE | 2025-05-31 14:22 | XR_ITS ---
[address] [address] Patient Name: KRISTY VAZQUEZ MRN: [id number] date: 1955 Sex: M Assigned Patient Location: ER Current Patient Location: ED.MAIN Accession/Order Number: [id number] Exam Date: 05/31/2025 14:54 Report Date: 05/31/2025 15:05 At the request of: JANETTE CFOFEY Procedure: XR chest 2V XR chest 2V 05/31/2025 2:54 PM SIGNS AND SYMPTOMS: ^AMS, weakness PROTOCOL: Frontal and lateral graphs of the chest COMPARISON: 04/19/2025 FINDINGS: The trachea is midline. There is a dual lead pacer device on the left. The heart and mediastinal structures are within normal limits. The lung parenchyma is clear. The bony thorax is intact. XR/XR chest 2V IMPRESSION: No acute cardiopulmonary pathology. Impression dictated by: Yannick Grewal M.D. 05/31/2025 3:05 PM Dictation Location: [place] [address] Electronically authenticated by: [id number] Y Date: 05/31/2025 15:05
--- NOTE | 2025-05-31 14:22 | CT_ITS ---
The [address] [address] Patient Name: KRISTY VAZQUEZ MRN: [id number] date: 1955 Sex: M Assigned Patient Location: ER Current Patient Location: .[facility] Accession/Order Number: [id number] Exam Date: 05/31/2025 14:54 Report Date: 05/31/2025 15:07 At the request of: JANETTE COFFEY Procedure: CT head/brain wo con CT head/brain wo con 05/31/2025 2:54 PM SIGNS AND SYMPTOMS: ^AMS TECHNIQUE:Multi-detector CT axial slices of the brain were obtained without IV contrast. CT was performed with one or more of the following dose reduction techniques: Automated exposure control, adjustment of the mA and/or kV according to patient size, or use of iterative reconstruction technique. COMPARISON: 07/01/2022 FINDINGS: There is no shift of the midline structures, acute intracranial bleeding, mass effects, or evidence of acute ischemia. Age-related cortical atrophy is noted. Periventricular white matter hypoattenuation is noted in atherosclerotic changes are noted in the V4 segments of the vertebral arteries and intracranial segments of the internal carotid arteries. The ventricular system is normal in size. The brainstem and the cerebellum are unremarkable. The visualized intraorbital contents, the visualized paranasal sinuses, and the infratemporal soft tissues show no acute abnormality. The osseous structures in the skull base and the calvarium show no abnormality. CT/CT head/brain wo con IMPRESSION: Chronic age-related neurodegenerative changes are noted. No acute intracranial pathology. Impression dictated by: Yannick Grewal M.D. 05/31/2025 3:07 PM Dictation Location: [place] Electronically authenticated by: [id number] Y Date: 05/31/2025 15:07
--- NOTE | 2025-05-31 14:22 | ED.WEAKNESS1 ---
HPI - Weakness General Chief complaint: Weakness Stated complaint: WEAKNESS Time Seen by Provider: 05/31/25 14:08 Source: family Mode of arrival: Wheelchair Limitations: altered mental status and physical limitation Limitations comment: weakness History of Present Illness HPI Narrative: 69 year old male presents to the ED for generalized weakness, fatigue, diarrhea, decreased appetite. states he has been sleeping most of the day the past few days. She states he has no eaten in 2-3 days. Reports little oral fluid intake. He was discharged from [facility] 13 days ago after a 16-day stay for CHF, LINDA, weakness. He has had physical therapy come to his house. states he did not do much at the last therapist visit due to his weakness. Denies fever, chills, CARTER, dizziness, vision changes. Denies cough, congestion, CP, SOB, N/V, abd pain. Denies urinary symptoms. reports he had the Watchman procedure several months ago. He has an AICD in place. He was discharged from [facility] with a heart monitor. Related Data Home Medications ?Medication ?Instructions ?Recorded ?Confirmed albuterol sulfate 90 mcg/actuation 2 inh inhalation Q4H PRN shortness 01/01/23 05/31/25 aerosol inhaler of breath or wheezing aspirin 81 mg tablet,delayed 81 mg PO DAILY 01/01/23 05/31/25 release (Adult Aspirin Regimen) atorvastatin 40 mg tablet 40 mg PO QPM 01/01/23 05/31/25 dapagliflozin propanediol 10 mg 10 mg PO DAILY 01/01/23 05/31/25 tablet (Farxiga) dupilumab 100 mg/0.67 mL 300 mg subcut QWEEK 01/01/23 05/31/25 subcutaneous syringe fluticasone 500 mcg-salmeterol 50 1 inh inhalation Q12H 01/01/23 05/31/25 mcg/dose blistr powdr for inhalation spironolactone 25 mg tablet 25 mg PO DAILY 01/01/23 05/31/25 clopidogrel 75 mg tablet 75 mg PO DAILY 05/31/25 05/31/25 colchicine 0.6 mg tablet 0.6 mg PO DAILY 05/31/25 05/31/25 furosemide 20 mg tablet 40 mg PO DAILY PRN edema 05/31/25 05/31/25 metoprolol succinate 25 mg 12.5 mg PO DAILY 05/31/25 05/31/25 tablet,extended release 24 hr Allergies Allergy/AdvReac Type Severity Reaction Status Date / Time No Known Drug Allergies Allergy Verified 05/31/25 13:53 Review of Systems ROS Constitutional Reports: fatigue; Denies: fever or chills Eyes Denies: change in vision Ears, nose, mouth, and throat Denies: throat pain or neck pain Cardiovascular Denies: chest pain Respiratory Denies: shortness of breath or cough Gastrointestinal Reports: diarrhea; Denies: abdominal pain, nausea or vomiting Genitourinary Denies: painful urination Musculoskeletal Denies: back pain or neck pain Integumentary/Breast Denies: rash Neurological Denies: headache, numbness in extremities, weakness in extremities or dizziness PFSH [facility] Medical History (Updated 05/31/25 @ 17:42 by Ling Pickett) Weakness ?R53.1 - Weakness (ICD-10) Afib ?I48.91 - Unspecified atrial fibrillation (ICD-10) Presence of Watchman left atrial appendage closure device ?Z95.818 - Presence of other cardiac implants and grafts (ICD-10) Cardiac defibrillator in place ?Z95.810 - Presence of automatic (implantable) cardiac defibrillator (ICD-10) Pacemaker ?Z95.0 - Presence of cardiac pacemaker (ICD-10) Exam Constitutional Vital Signs, click to edit/add: Last Vital Signs Temp 98.1 F 05/31/25 13:53 Pulse 109 H 05/31/25 17:50 Resp 24 H 05/31/25 17:50 BP 104/72 05/31/25 17:30 Pulse Ox 100 05/31/25 17:50 O2 Del Method Room Air 05/31/25 13:53 Common normals: no apparent distress General appearance: cooperative Other: Generalized weakness. HENMT Common normals: external ears normal and moist oral mucous membranes Eye Common normals: EOMs intact bilaterally, conjunctivae normal and no scleral icterus Other: Left pupil irregular, but not abnormal for patient. Neck & C-Spine Common normals: supple Chest Chest: symmetrical chest wall rise Respiratory Common normals: normal respiratory effort and clear to auscultation bilaterally Effort & inspection: symmetric chest movement Cardio Common normals: regular rhythm Rate: tachycardic Neuro [facility] Coma Scale: document GCS findings [place] coma scale eye opening: Spontaneous [facility] coma scale verbal response: Orientated [place] coma scale motor response: Obey commands [facility] coma scale total score: 15 Common normals: oriented x3, CN's II-XII intact bilaterally and moves all extremities Speech: speech normal Course Vital Signs Vital signs: Vital Signs Temperature 98.1 F 05/31/25 13:53 Pulse Rate 119 H 05/31/25 13:53 Respiratory Rate 20 05/31/25 13:53 Blood Pressure 123/89 05/31/25 13:53 Pulse Oximetry 100 05/31/25 13:53 Oxygen Delivery Method Room Air 05/31/25 13:53 Temperature 98.1 F 05/31/25 13:53 Pulse Rate 109 H 05/31/25 17:50 Respiratory Rate 24 H 05/31/25 17:50 Blood Pressure 104/72 05/31/25 17:30 Pulse Oximetry 100 05/31/25 17:50 Oxygen Delivery Method Room Air 05/31/25 13:53 MDM - Weakness MDM Narrative Medical decision making narrative: The patient presented for generalized weakness, poor oral intake. He was recently discharged from [facility] after admission for CHF, hyponatremia. His reports she is unable to care for him at this time due to his weakness. BNP was 3636; it was 3631 on 05/14/25. Urinalysis did not show evidence of infection. Troponin was unremarkable. Chest x-ray and CT scan of the head were negative for acute findings. The patient denied CP, SOB, abd pain. The patient's mentioned assisted facility placement and hospice. Findings were discussed with the patient and his . I spoke with Dr. Denney with [facility] cardiology; the patient is able to be admitted here at [facility]. I then spoke with Dr. Syed, hospitalist here at [facility]; he accepted the patient for admission. A full and detailed handoff report was given. Differential Diagnosis Differential diagnosis: Likely dehydration and other (CHF exacerbation, UTI, generalized weakness) Medical Records Attestation: I reviewed the patient's medical records. Lab Data Attestation: I reviewed the patient's lab results. Labs: Lab Results 05/31/25 05/31/25 Range/Units 14:10 16:30 WBC 14.9 H (4.0-11.0) 10^3/uL RBC 3.80 L (4.70-6.10) 10^6/uL Hgb 11.5 L (14.0-18.0) g/dL Hct 33.9 L (42.0-54.0) % MCV 89.2 (80.0-94.0) fL MCH 30.3 (25.9-34.0) pg MCHC 33.9 (29.9-35.2) g/dL RDW 14.6 (11.0-15.0) % Plt Count 206 (150-450) 10^3/uL MPV 11.5 (9.5-13.5) fL Neut % (Auto) 82.5 H (43.0-75.0) % Lymph % (Auto) 6.7 L (20.5-60.0) % [place] % (Auto) 9.7 (1.7-12.0) % Eos % (Auto) 0.1 L (0.9-7.0) % Baso % (Auto) 0.1 L (0.2-2.0) % Neut # (Auto) 12.3 H (1.4-6.5) 10^3/uL Lymph # (Auto) 1.0 L (1.2-3.8) 10^3/uL [place] # (Auto) 1.5 H (0.3-0.8) 10^3/uL Eos # (Auto) 0.0 (0.0-0.7) 10^3/uL Baso # (Auto) 0.0 (0.0-0.1) 10^3/uL Abs Immat Gran (auto) 0.13 H (0.00-0.03) 10^3/uL Imm/Tot Granulo (auto) 0.9 H (0.0-0.5) % Sodium 130 L (136-145) mmol/L Potassium 4.3 (3.5-5.1) mmol/L Chloride 97 L (98-107) mmol/L Carbon Dioxide 21.8 (21.0-32.0) mmol/L Anion Gap 15.5 BUN 38.0 H (7.0-18.0) mg/dL Creatinine 1.81 H (0.70-1.30) mg/dL Est GFR ( Amer) 45 L (>=60 mL/min/1.73m^2) Est GFR (Non-Af Amer) 37 L (>=60 mL/min/1.73m^2) BUN/Creatinine Ratio 21.0 Glucose 106 (74-106) mg/dL Calcium 9.2 (8.5-10.1) mg/dL Total Bilirubin 0.7 (0.2-1.0) mg/dL AST 100 H (15-37) U/L ALT 199 H (16-63) U/L Alkaline Phosphatase 116 (46-116) U/L Troponin I High Sens 12.7 (4.0-76.1) pg/mL NT-Pro-B Natriuret Pep 3636.0 H* (<=900.0) pg/mL Total Protein 8.2 (6.4-8.2) g/dL Albumin 2.7 L (3.4-5.0) g/dL Globulin 5.5 g/dL Albumin/Globulin Ratio 0.5 Lipase 63.0 (16.0-77.0) U/L Urine Color Yellow (YELLOW) Urine Clarity Clear (CLEAR) Urine pH 5.5 (5.0-9.0) Ur Specific Sim[place] 1.020 (1.005-1.025) Urine Protein Negative (NEG/TRACE) mg/dL Urine Glucose (UA) >=1000 A (NEGATIVE) mg/dL Urine Ketones Trace A (NEGATIVE) mg/dL Urine Occult Blood Negative (NEGATIVE) Urine Nitrite Negative (NEGATIVE) Urine Bilirubin Negative (NEGATIVE) Urine Urobilinogen 0.2 (0.2-1.0) EU/dL Ur Leukocyte Esterase Negative (NEGATIVE) Imaging Data Chest x-ray: Attestation: I have reviewed the pertinent imaging results. Radiologist's impression: ITS Impressions Chest X-Ray 05/31/25 14:22 IMPRESSION: No acute cardiopulmonary pathology. Impression dictated by: Yannick Grewal M.D. 05/31/2025 3:05 PM Dictation Location: [place] [address] Electronically authenticated by: [id number] Y Date: 05/31/2025 15:[address] 05/31/25 14:22 IMPRESSION: Chronic age-related neurodegenerative changes are noted. No acute intracranial pathology. Impression dictated by: Yannick Grewal M.D. 05/31/2025 3:07 PM Dictation Location: [place] [address] Electronically authenticated by: [id number] Y Date: 05/31/2025 15:07 ECG Data Attestation: ?I have reviewed the pertinent ECG results. (EKG was reviewed by the attending physician. It showed sinus tachycardia at a rate of 121. No STEMI.) Interpretation: Measurements Intervals [place] Rate: 121 P: 54 SD: 174 QRS: 19 QRSD: 116 T: 90 QT: 346 QTc: 418 Interpretive Statements 1120 Sinus tachycardia 3114 Cannot rule out anterior myocardial infarction, age undetermined 4664 Twave abnormality, possible inferior ischemia 6220 Possible left atrial enlargement 0102 ARTIFACT PRESENT 9150 abnormal ECG No previous ECG available for comparison Discharge Plan Discharge Chief Complaint: Weakness Clinical Impression: Generalized weakness, History of CHF (congestive heart failure), Poor appetite Patient Disposition: Admitted As Inpatient Time of Disposition Decision: 17:40 Condition: Fair
[2025-05-31 14:29] LABS: Hematocrit 33.9 % (42.0-54.0); Hemoglobin 11.5 g/dL (14.0-18.0); Immature Granulocytes Abs Auto 0.13 10^3/uL (0.00-0.03); Immature Granulocytes Pct Auto 0.9 % (0.0-0.5); Lymphocytes Absolute Auto 1.0 10^3/uL (1.2-3.8); Mean Corpuscular HGB Conc 33.9 g/dL (29.9-35.2); Mean Corpuscular Hemoglobin 30.3 pg (25.9-34.0); Mean Corpuscular Volume 89.2 fL (80.0-94.0); Platelet Count 206 10^3/uL (150-450); Red Blood Count 3.80 10^6/uL (4.70-6.10); White Blood Count 14.9 10^3/uL (4.0-11.0)
--- OUTSIDE RECORDS SUMMARY | 2025-05-31 14:37 | XMS_ITS ---
Author Organization [facility] Address [address] [place] [address] Care Team Providers Care Papeterie Table Assembler Name Role Phone Rudy Guerra MD Primary Care Provider [phone] Active Problems ProblemNoted DateDiagnosed DateCardiogenic shock05/03/2025 Assessment & Plan (05/03/2025 12:13 PM EDT): - Required Lorado Stacy and dobutamine in ICU. - Improving. [...] US neck. - Start doxy empirically. Sinus jfjnowihwbd97/06/2025 Assessment & Plan (05/03/2025 12:13 PM EDT): - Continue Toprol, Farxiga and spironolactone. - Hold Entresto due to LINDA. Assessment & Plan (04/24/2025 4:13 PM EDT): - Continue Toprol. - Hold Entresto and spironolactone due to hypotension. Assessment & Plan (04/23/2025 3:28 PM EDT): - Continue Toprol. - Hold Entresto and spironolactone due to hypotension. Right ventricular cbbkezqrghb56/06/2025 Assessment & Plan (05/03/2025 12:13 PM EDT): - Required Lorado Stacy and dobutamine in ICU. - Improving. Assessment & Plan (04/24/2025 4:13 PM EDT): - CTA chest showed no PE. - Right cath today. Assessment & Plan (04/23/2025 3:28 PM EDT): - We will order CTA chest due to tachycardia. - Left and right cath tomorrow. Hypotension due to xwnpjweaoml96/03/2025 Assessment & Plan (05/03/2025 12:13 PM EDT): [...] showed early tamponade. Patient was taken to central lab technician for Pericardiocentesis. Right heart cath was not suggestive for tamponade. 300 ml serosanguinous fluid. - Repeated echo showed mild effusion. Assessment & Plan (04/24/2025 4:13 PM EDT): - Echo showed early tamponade. Patient was taken to central lab technician for Pericardiocentesis. Right heart cath was not suggestive for tamponade. 300 ml serosanguinous fluid. - Monitor BP. - Continue colchicine per Cardiology. - Repeated echo showed mild effusion. Assessment & Plan (04/23/2025 3:28 PM EDT): - Echo showed early tamponade. Patient was taken to central lab technician for Pericardiocentesis. Right heart cath was not suggestive for tamponade. 300 ml serosanguinous fluid. - Monitor BP. - Continue colchicine per Cardiology. - Repeated echo showed mild effusion. Assessment & Plan (04/22/2025 8:13 PM EDT): - Echo showed early tamponade. Patient was taken to central lab technician for Pericardiocentesis. Right heart cath was not suggestive for tamponade. 300 ml serosanguinous fluid and pigtail was placed. - Monitor BP. - Continue colchicine per Cardiology. - Repeat echo on Monday 04/23. Assessment & Plan (04/21/2025 4:54 PM EDT): - Echo showed early tamponade. Patient was taken to central lab technician for Pericardiocentesis. Right heart cath was not suggestive for tamponade. 300 ml serosanguinous fluid and pigtail was placed. - Monitor BP. - Continue colchicine per Cardiology. - Follow up blood and fluid cx. - Repeat echo on Monday 04/23. Assessment & Plan (04/20/2025 12:20 PM EDT): - Echo showed early tamponade. Patient was taken to central lab technician for Pericardiocentesis. Right heart cath was not [...] small pericardial effusion. Workup was negative for CT Daily Update: patient arrived from [place]. Pain has improved to 2/10 Today's Plan: will continue to control pain as necessary. Cardiology consulted for investigation ofwatchman and other etiologies. Will continue to monitor. NPO for now. Echo showed signs of cardiac tamponade. Patient taken to heart cath with plan for possible pericardiocentesis. Heart failure with reduced ejection jcujapao57/02/2025 Assessment & Plan (05/03/2025 2:05 PM EDT): [...] as well as daily weight checks. Pericardial wclhywym02/02/2025 Assessment & Plan (05/03/2025 12:13 PM EDT): - Echo on admission showed early tamponade. Patient was taken to central lab technician for Pericardiocentesis. Right heart cath was not suggestive for tamponade. 300 ml serosanguinous fluid. - Repeated echo showed mild effusion. Assessment & Plan (04/24/2025 4:13 PM EDT): - Echo showed early tamponade. Patient was taken to central lab technician for Pericardiocentesis. Right heart cath was not suggestive for tamponade. 300 ml serosanguinous fluid. - Monitor BP. - Continue colchicine per Cardiology. - Repeated echo showed mild effusion. Assessment & Plan (04/23/2025 3:28 PM EDT): - Echo showed early tamponade. Patient was taken to central lab technician for Pericardiocentesis. Right heart cath was not suggestive for tamponade. 300 ml serosanguinous fluid. - Monitor BP. - Continue colchicine per Cardiology. - Repeated echo showed mild effusion. Assessment & Plan (04/22/2025 8:13 PM EDT): - Echo showed early tamponade. Patient was taken to central lab technician for Pericardiocentesis. Right heart cath was not suggestive for tamponade. 300 ml serosanguinous fluid and pigtail was placed. - Monitor BP. - Continue colchicine per Cardiology. - Repeat echo on Monday 04/23. Assessment & Plan (04/21/2025 4:54 PM EDT): - Echo showed early tamponade. Patient was taken to central lab technician for Pericardiocentesis. Right heart cath was not suggestive for tamponade. 300 ml serosanguinous fluid and pigtail was placed. - Monitor BP. - Continue colchicine per Cardiology. - Follow up blood and fluid cx. - Repeat echo on Monday 04/23. Assessment & Plan (04/20/2025 12:20 PM EDT): - Echo showed early tamponade. Patient was taken to central lab technician for Pericardiocentesis. Right heart cath was not [...] small pericardial effusion. Workup was negative for CT Daily Update: patient arrived from [place]. Pain has improved to 2/10 Today's Plan: will continue to control pain as necessary. Cardiology consulted for investigation ofwatchman and other etiologies. Will continue to monitor. NPO for now. Echo showed signs of cardiac tamponade. Patient taken to heart cath with plan for possible pericardiocentesis. Hfjbturuuxcs80/02/2025 Assessment & Plan (04/20/2025 12:20 PM EDT): - Follow up urine Na and osmol. - Improving. Assessment & Plan (04/19/2025 1:19 PM EDT): Sodium 126 Will continue to monitor Urine sodium and serum osmolality ordered Lhfzyjmmzbyh07/02/2025trial stbsengncilw05/03/2025 Assessment & Plan (05/03/2025 12:13 PM EDT): [...] plavix Will continue to monitor Paroxysmal atrial mnqznopwlnfe86/04/2024 Overview (01/06/2024): Last Assessment & Plan: In NSR and continue medication. Follow up with cardiology. Chronic tjoingrxfhsy81Nasal polypICD (implantable cardioverter-defibrillator) in place09/15/2022 Assessment & [...] is due for interrogation this coming march Skhsnrgchaocrf71/14/2023 Overview (09/01/2022): Added automatically from request for surgery [id number] Assessment & Plan (05/03/2025 2:05 PM EDT): [...] (02/19/2023 1:06 PM EDT): As above Depressive kjygbqhp31/13/1150Pjzcsvavgbbf39/13/2023 Assessment & Plan (02/19/2023 1:06 PM EDT): Continue statin Prcsdqhkmef08/13/2023Seasonal allergic wehgtesf80/13/2023Steatosis of liver 08/31/2022Vitamin D rdvwvudiqb44/13/2023oronary artery disease involving lower brule coronary artery of lower brule heart with angina nepbnvnj58/19/2022 Assessment & Plan (05/03/2025 12:13 PM EDT): [...] statin therapy lipitor 40mg Chronic systolic heart tdxwhun6707/06/2022 Assessment & Plan (01/06/2024 12:03 PM EDT): [facility] II- currently EF improved from 25-30% to 40% Remains euvolemic and stable Continue GDMT- lipitor, farxiga, toprol, entresto and aldactone Diuretic therapy- continue farxiga Monitor daily weights, I&O, fluid restriction 1.5-2L/day, renal function and electrolytes- Currently stable - improved EF- continue all medications Assessment & Plan (02/19/2023 1:05 PM EDT): [facility] II- currently euvolemic without exacerbation Continue GDMT- ASA, lipitor, toprol, farxiga, aldactone and will increase entresto to 49-51 mg bid Repeat BMP in 1 week to assess renal function and electrolyes Diuretic therapy- farxiga- pt is euvolemic currently Monitor daily weights, I&O, fluid restriction 1.5-2L/day, renal function and electrolytes- History of malignant neoplasm of yzdxzqdz18/16/6721Ahtwfhdyavmpiv00/16/2022 Primary mgbkpopdwckk21/16/2022 Assessment & Plan (05/03/2025 12:13 PM EDT): [...] Continue medications New onset of congestive heart nxakdsu1807/02/2022 Assessment & Plan (07/06/2022 10:32 PM EST): [...] complexes he may no BiV ICD -continue rkrulkFV20oy, entresto 24-, will add medications pending echo Syncope and hesrxmjy46/15/2022 Overview (07/03/2022): Added automatically from request for surgery [id number] Uncomplicated jffcnz4607/29/2012 Assessment & Plan (05/03/2025 12:13 PM EDT): [...] to our equivalent Mild persistent asthma without szvzoolfatqb81/11/2013 Overview (01/06/2024): Last Assessment & Plan: No SOB and continue advair. Use albuterol PRN. Benign essential bdstaqxgzjas60Hyperlipidemia07/02/2008 05/11/2023 Assessment & Plan (01/06/2024 11:59 AM EDT): Script for liver function and lipid levels given to pt Continue statin Malignant tumor of Current Treatment and Therapy Plans No current plan information found. Past Treatment and Therapy Plans No past plan information found. Lifetime Dose Tracking * ChemicalLifetime DoseAutomatic EntryManual EntryFluoro Time25.56 minutes0 ovpxxut64.56 minutesAir Kerma2,028.5 mGy0 mGy2,028.5 mGyDose Area Product 242,509 mGy-cm20 mGy-zo5633,509 mGy-cm2 Resolved Problems ProblemNoted DateDiagnosed DateResolved DateHx of benign neoplasm of prostate
--- OUTSIDE RECORDS SUMMARY | 2025-05-31 14:37 | XMS_ITS | Encounter Summary ---
Author Organization [facility] Address [address] [place] [address] Care Team Providers Care Early Childhood Assistant Name Role Phone Rudy Guerra MD Primary Care Provider [phone] Rudy Guerra MD Primary Care Provider [phone] Encounter Details DateTypeDepartmentCare Team (Latest Contact Info)Yjqaqidzrey19/28/2024Clinisync Result Encounter [facility] External Department Unsolicited Provider, Generic External Data Social History Tobacco UseTypesPacks/DayYears UsedDateSmoking Tobacco: NeverSmokeless Tobacco: CurrentChewAlcohol UseStandard Drinks/WeekCommentsYes6 (1 standard drink = 0.6 oz pure alcohol)caffeine intake: 1-2 cups per day of coffee/teaPHQ-2AnswerDate RecordedPatient Health Questionnaire-2 Aluys413Sex and Gender InformationValueDate RecordedSex Assigned at BirthNot on fileLegal SexMale 09/30/2022 6:42 PM EDTGender IdentityNot on fileSexual OrientationNot on file documented as of this encounter Plan of Treatment Not on file documented as of this encounter Procedures Procedure NamePriorityDate/TimeAssociated DiagnosisCommentsCA ECHO DOPPLER CNZQCBXC92/28/2024 7:11 PM EDT documented in this encounter Results * CA ECHO DOPPLER COMPLETE (12/14/2023 7:11 PM EDT)Anatomical RegionLaterality ModalityOtherSpecimen (Source)Anatomical Location / LateralityCollection Method / VolumeCollection TimeReceived Time12/14/2023 7:11 PM EDT Narrative 12/14/2023 7:12 PM EDT [facility] ?[address] ? [place] [address] ? Cardiology Report ? Signed ? Patient: GEORGE,KRISTY ?MR#: [id number] ?? : 1955 ?Acct:[id number] ?? Age/Sex: 68 / M ?ADM Date: 05/28/24 ?? Loc: CARD ? Attending Dr: BORIS WILLIAM ? Ordering Physician: BORIS WILLIAM ?? Date of Service: 12/14/23 ?? Procedure(s): CA echo doppler complete ?? Accession Number(s): [id number] ? cc: BORIS WILLIAM; Rudy Guerra M.D. ? Patient Name: ? KRISTY DOHERTY ? MR#: [id number] ? : 1955 ? Exam Date: 12/14/2023 ?? Ordering Doctor: DR BORIS WILLIAM M.D. ? ECHOCARDIOGRAM REPORT ? PROCEDURE: ? CA ECHO DOPPLER COMPLETE ? INDICATIONS: ? Heart failure with reduced ejection fraction, AICD ? COMPARISON: ? None. ? DESCRIPTION: ? COMPLETE ECHOCARDIOGRAM Real-time transthoracic ?? echocardiography with 2D, M-mode, spectral and color flow Doppler performed. ? QUALITY: ? Technical quality was good. ??68 , 185#, BP 98/62 ?? LEFT VENTRICLE: ? Mild eccentric hypertrophy. ??Systolic function is mildly ?? to moderately reduced. ??There is global hypokinesis. ?? LV EF: ? Estimated left ventricular ejection fraction is 40%. ?? DIASTOLIC: ? Grade 1 diastolic dysfunction. ?? ATRIAL SEPTUM: ? Visually appears intact. ?? LEFT ATRIUM: ? Normal chamber size. ?? RIGHT ATRIUM: ? Normal chamber size. ?? RIGHT VENTRICLE: ? Normal chamber size. ??Normal systolic function. ?Pacer ?? wire present. ?? TRICUSPID VALVE: ? Normal mobility and thickness. No stenosis with mild ?? regurgitation. No evidence of pulmonary hypertension. RVSP 25 mmHg ? MITRAL VALVE: ? Normal mobility and thickness. ?? No evidence of mitral valve ?? stenosis. ??There is no mitral annular calcification. Mild mitral ?? regurgitation. ? AORTIC VALVE: ? Normal trileaflet appearance. No visible sclerosis. ??Normal ?? leaflet mobility. ??No evidence of aortic valve stenosis. Mild to moderate ?? aortic regurgitation. ? AORTIC ROOT: ? The aortic root is mildly dilated, measuring 3.8 cm. ?? Ascending aorta is normal in size, measuring 3.4 cm. ? PULMONIC VALVE: ? Normal thickness and mobility. No stenosis. Trivial ?? regurgitation. ? PERICARDIUM: ? No evidence of pericardial effusion. ? IVC: ? Collapses with inspirations. IVC is normal in size. ? PLEURA: ? CONCLUSION: ? 1. The left ventricle exhibits mild eccentric hypertrophy with mildly to ?? moderately reduced systolic function. Estimated ejection fraction is 40%. ?? 2. Normal right ventricular size and systolic function. ?? 3. Mild mitral and tricuspid regurgitation. ?? 4. Mild to moderate aortic regurgitation. ?? 5. Normal right-sided pressures. ? Adult Echocardiography Procedure Report ?? Left Ventricle ?? LVEDD (3.7 - 5.6 cm): ? 5.70 cm ?? LVESD (2.2 - 4.0 cm): ? 4.64 cm ?? LVIVS thickness (0.6 - 1.2 cm): ? 0.90 cm ?? LVPW thickness (0.5 - 1.0 cm): ? 1.09 cm ?? e': ? 0.06 m/s ?? E - e': ? 5.68 ?? LVOT Max Gradient: ? 1.73 mm[Hg] ?? LVOT Area (cm2): ? 0.66 m/s ?? Peak Velocity (LVOT): ? 0.66 m/s ?? Mean Velocity (LVOT): ? 0.42 m/s ?? LVOT Diameter ? 2.66 cm ?? Left Atrium ?? LA Volume Index (2D A2C): ? 29.06 ml/m2 ?? Left Atrium Systolic Dimension: ? 4.29 cm ?? Mitral Valve ?? MV E to A Ratio: ? 0.50 ?? Mitral Valve A-Wave Peak Velocity: ? 0.71 m/s ?? Mitral Valve E-Wave Peak Velocity: ? 0.36 m/s ?? Right Ventricle ?? Aorta ?? AO Root Diam: ? 3.77 cm ?? Ascending Ao Diam: ? 3.40 cm ?? Aortic Valve ?? AoV Area (Peak Stanley): ? 2.81 cm2, 2.81 cm2 ?? AoV Area (VTI): ? 2.64 cm2, 2.64 cm2 ?? Peak Velocity(Antegrade Flow): ? 1.31 m/s ?? Peak Gradient(Antegrade Flow): ? 6.82 mm[Hg] ?? Mean Velocity(Antegrade Flow): ? 0.91 m/s ?? Mean Gradient(Antegrade Flow): ? 3.81 mm[Hg] ?? Velocity Time Integral: ? 30.09 cm ?? Tricuspid Valve ?? Peak Velocity (Regurgitant Flow): ? 2.35 m/s ?? Pulmonic Valve ?? Peak Gradient: ? 7.23 mm[Hg], 6.30 mm[Hg] ?? Right Atrium ?? Right Atrium Systolic Pressure: ? 37.68 ml, 37.68 ml ? Dictated by: Boris William M.D. on 12/14/2023 at 19:04 ? Approved by: Boris William M.D. on 12/14/2023 at 19:11 ? Dictated By: ?BORIS WILLIAM ? Signed By: ?12/14/231911 ? DD/ 10 ? TD/TT: ? Welding Inspector: Procedure Note Radiology, Radiologist, MD - 12/14/2023 [place] [address] Cardiology Report Signed Patient: KRISTY DOHERTY#: [id number] : 6Acct:[id number] Age/Sex: 68 / MADM Date: 12/14/23 Loc: CARD Attending Dr: BORIS WILLIAM Ordering Physician: BORIS WILLIAM Date of Service: 12/14/23 Procedure(s): CA echo doppler complete Accession Number(s): [id number] cc: BORIS WILLIAM; Rudy Guerra M.D. Patient Name: KRISTY DOHERTY MR#: [id number] : 1955 Exam Date: 12/14/2023 Ordering Doctor: [...] BORIS WILLIAM Signed By:12/14/231911 DD/ 10 TD/TT: Welding Inspector: Authorizing ProviderResult TypeResult StatusGeneric External Data Provider CLINISYNC IMAGINGFinal Result documented in this encounter Visit Diagnoses Not on filedocumented in this encounter Care Teams Team MemberRelationshipSpecialtyStart DateEnd Date Rudy Guerra MD PCP - GeneralFamily Medicine Rudy Guerra MD PCP - GeneralFamily Medicine01/17/24documented as of this encounter
--- OUTSIDE RECORDS SUMMARY | 2025-05-31 14:37 | XMS_ITS | Encounter Summary ---
Author Organization [facility] Address [address] [place] [address] Care Team Providers Care Tax Commissioner Name Role Phone Rudy Guerra MD Primary Care Provider [phone] Reason for Visit * ReasonOnset DateCommentsMed Yuprvz6805/25/2025 Encounter Details DateTypeDepartmentCare Team (Latest Contact Info)Ilemroszagp84/07/2025Refill [facility] [place] [address] [place] [address] Zaida Farias MA Chronic systolic heart failure (CMS/HCC) Social History Tobacco UseTypesPacks/DayYears UsedDateSmoking Tobacco: FormerCigarettes Smokeless Tobacco: NeverAlcohol UseStandard Drinks/OufyRbncixapHwc13 (1 standard drink = 0.6 oz pure alcohol)occasionalC UtilitiesAnswerDate RecordedIn the past 12 months has [...] Current or Ex-PartnerNot on file09/09/2023Emotionally AbusedNot on file09/09/2023 Physically AbusedNot on file09/09/2023Sexually AbusedNot on file09/09/2023 [...] or living in a long term (including now)?No04/19/2025Hunger Vital SignAnswerDate RecordedWithin the past 12 months, you worried that your food would run out before you got the money to buymore.Never true04/19/2025Ran Out of Food in the Last YearNot on file04/19/2025Sex and Gender InformationValueDate RecordedSex Assigned at PstabSudk08/06/2025 8:51 AM EDTLegal FueKuyk6301/14/2022 10:53 PM EDT Gender ErevdskrLjku63/06/2025 8:51 AM EDTSexual OrientationHeterosexual or Xsfihyvx67/06/2025 8:51 AM EDTdocumented as of this encounter Plan of Treatment DateTypeDepartmentCare Team (Latest Contact Info)Ldicvfzbrvi66/02/2025 9:[address] [facility] [address] [place] [address] Bobo Raymond MD [address] [place] [address] 06/22/2025 10:[address] [facility] [address] [place] [address] Hay William MD [address] [facility] [place] [place] [phone] documented as of this encounter Visit Diagnoses Diagnosis Chronic systolic heart failure (CMS/HCC) Chronic systolic heart failure documented in this encounter Care Teams Team MemberRelationshipSpecialtyStart DateEnd Date Rudy Guerra MD [address] [place] [address] PCP - Vhjbcir47/16/22documented as of this encounter
--- OUTSIDE RECORDS SUMMARY | 2025-05-31 14:37 | XMS_ITS | Clinical Summary ---
Author Organization [facility] Address [facility] [place] [address] Care Team Providers Care Underwater Trapper Name Role Phone Arturo PIMENTEL MD, Dakota Franco Primary Care Provider [phone] Allergies No known active allergies Medications MedicationSigDispense QuantityRefillsLast FilledStart DateEnd DateStatus simvastatin 40 mg tablet Take 40 mg by mouth once daily.Active fluticasone 50 mcg/actuation nasal spray Use 1 [facility] in each nostril once daily.Active lisinopril-hydrochlorothiazide 20-12.5 [...] 1 Inhaler ctive Active Problems ProblemNoted DateDiagnosed RhqlBcxvug37/11/2013 Immunizations ImmunizationAdministration DatesNext Dueinfluenza vaccine, unspecified lquwbccxidt99/11/2013 Family History Medical HistoryRelationCommentsCancerBrotherprostateNoneBrotherhas 6 brothers EmphysemaFatherCerebral EmbolismMotherDiabetesMotherHypertensionMotherNoneSister RelationStatusCommentsBrotherFatherMotherSister Social History Tobacco UseTypesPacks/DayYears UsedDateSmoking Tobacco: FormerCigarettes0.53 03/03/1974 - 03/03/1977Smokeless Tobacco: FormerAlcohol UseStandard Drinks/Week KxtknuosAlz38 (1 standard drink = 0.6 oz pure alcohol)Sex and Gender Information ValueDate RecordedSex Assigned at BirthNot on fileLegal BjdUbdj14/02/2012 10:16 AM ESTGender IdentityNot on fileSexual OrientationNot on file Last Filed Vital Signs Vital SignReadingTime TakenCommentsBlood Gegynysv097/85007/29/2012 8:56 AM EST Gnkve097307/29/2012 8:56 AM GQKOarzwuehvzp59.3 ??C (97.3 ??F)07/29/2012 8:56 AM ESTRespiratory Ivln235407/29/2012 8:56 AM ESTOxygen Outyinvuhe39%07/29/2012 8:56 AM ESTInhaled Oxygen Concentration--Dbqles71.9 kg (200 lb 6.4 oz)04/19/2012 1:48 PM VYEPnxqjj405.3 cm (5' 6.65 )04/19/2012 1:48 PM EDTBody Mass Index31.71 04/19/2012 1:48 PM EDT Plan of Treatment Health MaintenanceDue DateLast DoneCommentsAbdominal Aortic Aneurysm Screening 6Anxiety Ilaiydism40/04/1974Depression Ayhdztgeo56/04/1974Hepatitis C Fjnpvemmz55/04/1974DTaP,Tdap,Td Vaccine (1 - Tdap)09/19/1974Lipid Screening 09/19/1990CT Jjwamspggqyf22/04/2001Cologuard (FIT-DNA)09/19/2000Colonoscopy 09/19/2000Colorectal Cancer Qxstkbvse49/04/2001Fecal Occult Blood09/19/2000 Dpkmoemlrqvir43/04/2001Pneumococcal Vaccine: 50+ (1 of 1 - PCV)09/19/2005 Shingrix Vaccine (1 of 2)09/19/2005Diabetes Pxxygectk77/05/dvance Directive Sftodafyhy93/01/2025Covid-19 Vaccine (1 - 2024- season)2025 Influenza Vaccine (#1)5007/29/2012RSV Vaccine (1 - 1-dose 75+ series) 09/19/2030 Procedures Procedure NamePriorityDate/TimeAssociated DiagnosisCommentsBASIC METABOLIC PANEL STAT03/23/2012 9:22 AM EDT Pre-op testing from Last 3 Months or Most Recently Relevant to Health Maintenance Results * (ABNORMAL) BASIC METABOLIC PNL (03/23/2012 9:22 AM EDT)ComponentValueRef Range Test MethodAnalysis TimePerformed AtPathologist FchriwmmgCdlvkdt548(H)65 - 100 mg/dLA[facility] RYEFICMLSRBAS2210 - 25 mg/dLA[facility] LABORATORYCreatinine1.010.70 - 1.40 mg/dLA[facility] LABORATORY Fagpms731844 - 146 mmol/LCPAULDING COUNTY HOSPITAL LABORATORYPotassium3.83.5 - 5.0 mmol/LCPAULDING COUNTY HOSPITAL HOGAVJGPKMEjzwxlxx2197 - 110 mmol/LCPA[facility] FISIIUDVCJPI01069 - 32 mmol/LCPAULDING COUNTY [facility] LABORATORYAnion Clr632 - 15 mmol/LCPAULDING COUNTY [facility]OSPITAL AXVMNAFRIUThgrcmj52.18.5 - 10.5 mg/dL [facility] LABORATORYeGFR->60[facility] LABORATORYeGFR-All Other Races>60.[facility] LABORATORYComment: eGFR (Estimated GFR) Units of [...] StatusPeter Mariaelena KLEINLABORATORYFinal ResultPerforming OrganizationAddressCity/State/ZIP CodePhone Number [facility] [address] [place] [address] from Last 3 Months or Most Recently Relevant to Health Maintenance Insurance Care Teams Team MemberRelationshipSpecialtyStart DateEnd Date Dakota Morris II, MD PCP - GeneralInternal Medicine02/18/12
--- OUTSIDE RECORDS SUMMARY | 2025-05-31 14:37 | XMS_ITS | Encounter Summary ---
Author Organization [facility] Address [address] [place] [address] Care Team Providers Care Tea Bag Machine Tender Name Role Phone Rudy Guerra MD Primary Care Provider [phone] Encounter Details DateTypeDepartmentCare Team (Latest Contact Info)Ukyxajqmgnt70/31/2025Orders Only [facility] [address] [place] [address] Mitesh Webb MD [address] [place] [address] Social History Tobacco UseTypesPacks/DayYears UsedDateSmoking Tobacco: FormerCigarettes Smokeless Tobacco: NeverAlcohol UseStandard Drinks/GgamCmuwdnfzRyz00 (1 standard drink = 0.6 oz pure [...] EnvironmentAnswerDate RecordedFear of Current or Ex-PartnerNot on file02/22/2024Emotionally AbusedNot on file09/09/2023 Physically AbusedNot on file09/09/2023Sexually [...] homeless or living in a penitentiary (including now)?No04/19/2025Hunger Vital SignAnswerDate RecordedWithin the past 12 months, you worried that your food would run out before you got the money to buymore.Never true04/19/2025Ran Out of Food in the Last YearNot on file04/19/2025Sex and Gender InformationValueDate RecordedSex Assigned at BckomRkgm95/06/2025 8:51 AM EDTLegal UwnYvbw7601/14/2022 10:53 PM EDT Gender TbvzxdyeVskd85/06/2025 8:51 AM EDTSexual OrientationHeterosexual or Urpihvvy18/06/2025 8:51 AM EDTdocumented as of this encounter Plan of Treatment DateTypeDepartmentCare Team (Latest Contact Info)Znbvemnvpck01/02/2025 9:00 AM ESTOffice [facility] [address] [place] [address] Bobo Raymond MD [address] [place] [address] 06/22/2025 10:00 AM ESTOffice Visit [facility] [address] [place] [address] Hay William MD [address] [facility] [address] [place] [phone] documented as of this encounter Procedures Procedure NamePriorityDate/TimeAssociated DiagnosisCommentsCARDIAC DEVICE CHECK - REMOTE - WPYOjtontj42/31/2025 12:00 AM EDTdocumented in this encounter Results * Cardiac device check - Remote ICD (05/18/2025 12:00 AM EDT)Anatomical Region LateralityModalityOtherSpecimen (Source)Anatomical Location / Laterality Collection Method / VolumeCollection TimeReceived Time05/18/2025 Narrative Authorizing ProviderResult TypeResult StatusSamelissa Webb [facility] [place] IMPLANTABLE CARDIAC DEVICE PROCEDURESFinal Result documented in this encounter Visit Diagnoses Not on filedocumented in this encounter Care Teams Team MemberRelationshipSpecialtyStart DateEnd Date Rudy Guerra MD [address] [place] [address] PCP - Wdeajhj55/16/22documented as of this encounter
--- OUTSIDE RECORDS SUMMARY | 2025-05-31 14:37 | XMS_ITS | Encounter Summary ---
Author Organization [facility] Address [address] [place] [address] Care Team Providers Care Forwarder Operator Name Role Phone Rudy Guerra MD Primary Care Provider [phone] Encounter Details DateTypeDepartmentCare Team (Latest Contact Info)Wewynsnrbzm28/12/2025Results Follow-Up [facility] [address] [place] [address] Neelam Gutierrez CNP [address] [place] [address] Cardiac event monitor Social History Tobacco UseTypesPacks/DayYears UsedDateSmoking Tobacco: FormerCigarettes Smokeless Tobacco: NeverAlcohol UseStandard Drinks/StxnJuwmewiiIph04 (1 standard drink = 0.6 oz pure alcohol)occasionalAHC UtilitiesAnswerDate RecordedIn the past 12 months has the electric, gas, oil, or water [employer] threatened to shut off services in your [...] file09/09/2023 Physically AbusedNot on file09/09/2023Sexually AbusedNot on 09/09/2023 Physically or Sexually AbusedNot on file09/09/2023TransportationAnswerDate RecordedIn [...] were you homeless or living in a senior living (including now)?No04/19/2025Hunger Vital SignAnswerDate RecordedWithin the past 12 months, you worried that your food would run out before you got the money to buymore.Never true04/19/2025Ran Out of Food in the Last YearNot on file04/19/2025Sex and Gender InformationValueDate RecordedSex Assigned at WptsfMqsr46/06/2025 8:51 AM EDTLegal BoyIzdk2101/14/2022 10:53 PM EDT Gender HyqnkrtnXwre89/06/2025 8:51 AM EDTSexual OrientationHeterosexual or Pzvbceyo69/06/2025 8:51 AM EDTdocumented as of this encounter Miscellaneous Notes * Result Encounter Note - Neelam Gutierrez CNP - 05/30/2025 9:21 PM EST Zaida, can we set him up to see Dr. Raymond. He is having some NSVT. Thanks * Result Encounter Note - Neelam Gutierrez CNP - 05/30/2025 4:30 PM EST Should I have him see EP? documented in this encounter Plan of Treatment DateTypeDepartmentCare Team (Latest Contact Info)Rvsyhxmlenj44/02/2025 9:00 AM ESTOffice Visit [facility] [address] [place] [facility] [address] Bobo Raymond MD [address] [place] [address] 06/22/2025 10:00 AM ESTOffice Visit [facility] [address] [place] [facility] [address] Hay William MD [address] [facility] [address] [facility] [address] documented as of this encounter Visit Diagnoses Not on filedocumented in this encounter Care Teams Team MemberRelationshipSpecialtyStart DateEnd Date Rudy Guerra MD [address] [place] [address] PCP - Irtjatg56/16/22documented as of this encounter
--- OUTSIDE RECORDS SUMMARY | 2025-05-31 14:37 | XMS_ITS | Clinical Summary ---
Author Organization [facility] Address [address] [place] [address] Care Team Providers Care Preschool Paraprofessional Name Role Phone Rudy Guerra MD Primary Care Provider [phone] Allergies No known active allergies Medications MedicationSigDispense [...] up with cardiology. Allergic rhinitis due to wtfflp8603/02/2023 Assessment & Plan (07/22/2023 3:39 PM EST): Symptoms controlled with medication and continue. Chronic /15/2023Nasal polyp03/02/2023ICD (implantable cardioverter-defibrillator) in place09/15/2022 Overview (03/02/2023): Last Assessment & Plan: No DFT since implantation RTC q 6 months of device interrogation and pt is due for interrogation this coming march Nonischemic iyanidfvtusdwp72/14/2023 Overview (03/02/2023): Added automatically from request for surgery [id number] Last Assessment & Plan: As above Seasonal allergic wrilckgz10/13/2023epressive kzvwkesu34/13/2023yslipidemia 08/31/2022 Overview (03/02/2023): Last Assessment & Plan: Continue statin Sqdzolkxoqx43/13/2023Steatosis of liver08/31/2022Vitamin D yhjqmucqbt76/13/2023 Chronic HFrEF (heart failure with reduced ejection [...] up with cardiology. Coronary artery disease involving [place] coronary artery of [place] heart without angina lxeoqiva85/19/2022 Overview (03/02/2023): Last Assessment & Plan: Coronary artery disease is stable Continue GDMT- ASA lipitor and toprol- Pt tolerating cardiac rehab well andstates he has 1 more week of rehab continue risk factor modifications- heart healthy diet, regular exercise as tolerated and continue all medications. Mild persistent asthma without fodeirkkpidb13/11/2013 Assessment & Plan (12/12/2024 9:02 PM EDT): No SOB and continue advair. Use albuterol PRN. Assessment & Plan (07/22/2023 3:40 PM EST): No SOB and continue advair. Use albuterol PRN. Benign essential aienanmnjadj15/09/2011 Assessment & Plan (12/12/2024 9:02 PM EDT): BP controlled and monitor PRN. Assessment & Plan (07/22/2023 3:39 PM EST): BP controlled and monitor PRN. Owbhgulaurhxmx70/15/2008Malignant tumor of eoapanjj68/15/2008 Resolved Problems ProblemNoted DateDiagnosed DateResolved DateChronic mtrjzbaz80 History of malignant neoplasm of whfpniap03Hypertension Overview (03/02/2023): Last Assessment & Plan: Hypertension is well controlled Continue all meds Renal function has been stable Diqqaxfqyjpmuv24New onset of congestive heart failure Overview (03/02/2023): [...] complexes he may no BiV ICD -continue dfqayyMP88vl, entresto 24-, will add medications pending echo Syncope and suqmgywc57 Overview (03/02/2023): Added automatically from request for surgery [id number] Immunizations ImmunizationAdministration DatesNext KryPYA51/14/2022Pfizer Purple Cap SARS-CoV-2 Lsavrwvieom59/26/2021,2020 Family History Medical HistoryRelationNameCommentsCOPDFatherDiabetesMotherHeart diseaseMother StrokeMotherHeart diseaseSiblingRelationNameStatusCommentsFatherDeceasedMother DeceasedSibling Social History Tobacco UseTypesPacks/DayYears UsedDateSmoking Tobacco: NeverSmokeless Tobacco: CurrentChew Tobacco Cessation:Ready to Q uit: Not Asked; Counseling Given: Not Answered Alcohol UseStandard Drinks/WeekCommentsYes6 (1 standard drink = 0.6 oz pure alcohol)caffeine intake: 1-2 cups per day of coffee/teaPHQ-2AnswerDate Recorded Patient Health Questionnaire-2 Fggqn650Sex and Gender InformationValue Date RecordedSex Assigned at BirthNot on fileLegal NiuNtmu8009/30/2022 6:42 PM EDT Gender IdentityNot on fileSexual OrientationNot on file Last Filed Vital Signs Vital SignReadingTime TakenCommentsBlood Ocqcvutp061/3407 11:01 AM EDT Rqiou8041 11:01 AM IXADfmdkzffnom98.6 ??C (97.8 ??F)12/12/2024 3:08 PM EDTRespiratory Scpo017712/12/2024 3:08 PM EDTOxygen Vorrteegig00%12/12/2024 3:08 PM EDTInhaled Oxygen Concentration--Gjebkb98.3 kg (188 lb)02/05/2025 11:01 AM MUGJamzvb543.7 cm (5' 8 )02/05/2025 11:01 AM EDTBody Mass Index28.5907 11:01 AM EDT Plan of Treatment Not on file Insurance * Guarantor: Manas DohertyAccount TypeRelation to PatientDate of BirthPhone Billing AddressPersonal/ZmqjxhNlqo49/04/1956 [facility] [address] [address] Care Teams Team MemberRelationshipSpecialtyStart DateEnd Date Naderer, Rudy, MD PCP - GeneralFami Medicine01/17/24
--- OUTSIDE RECORDS SUMMARY | 2025-05-31 14:37 | XMS_ITS | Encounter Summary ---
Author Organization [facility] Address [address] [place] [address] Care Team Providers Care Research And Evaluation Analyst Name Role Phone Rudy Guerra MD Primary Care Provider [phone] Encounter Details DateTypeDepartmentCare Team (Latest Contact Info)Kjlxdntlvuq54/03/2025Telephone [facility] [place] [address] [place] [address] Radha Green MA Social History Tobacco UseTypesPacks/DayYears UsedDateSmoking Tobacco: FormerCigarettes Smokeless Tobacco: NeverAlcohol UseStandard Drinks/GzokFrzltwtzRko94 (1 standard drink = 0.6 oz pure alcohol)occasionalAHC UtilitiesAnswerDate RecordedIn the past 12 months has the electric, gas, oil, or water [employer] threatened to shut off services in your [...] homeless or living in a usp (including now)?No04/19/2025Hunger Vital SignAnswerDate RecordedWithin the past 12 months, you worried that your food would run out before you got the money to buymore.Never true04/19/2025Ran Out of Food in the Last YearNot on file04/19/2025Sex and Gender InformationValueDate RecordedSex Assigned at NqnqcEsaq97/06/2025 8:51 AM EDTLegal LpwGhar1001/14/2022 10:53 PM EDT Gender PbvqrnqoQpli53/06/2025 8:51 AM EDTSexual OrientationHeterosexual or Iylvekmj35/06/2025 8:51 AM EDTdocumented as of this encounter Miscellaneous Notes * Telephone Encounter - Radha Green MA - 05/21/2025 3:20 PM EST Spoke to Dr Wilcox office patient is scheduled 05/23/2025 at 1:20 documented in this encounter Plan of Treatment DateTypeDepartmentCare Team (Latest Contact Info)Gnqmolrjayd36/02/2025 9:00 AM ESTOffice Visit [facility] [place] [address] [place] [address] Bobo Raymond MD [address] [place] [address] 06/22/2025 10:00 AM ESTOffice Visit [facility] [address] [place] [address] Hay William MD [address] [facility] [address] [place] [address] documented as of this encounter Visit Diagnoses Not on filedocumented in this encounter Care Teams Team MemberRelationshipSpecialtyStart DateEnd Date Rudy Guerra MD [address] [place] [address] PCP - Biqfhft81/16/22documented as of this encounter
--- OUTSIDE RECORDS SUMMARY | 2025-05-31 14:37 | XMS_ITS | Clinical Summary ---
Author Organization [facility] Address [address] [place] [address] Care Team Providers [employer] Name Role Phone Rudy King MD Primary Care Provider [phone] Allergies No known active allergies Medications MedicationSigDispense [...] inhaler Inhale 1 puff two times daily.3Active atorvastatin (Lipitor) 40 mg tablet Indications:Coronary artery disease involving alturas coronary artery of alturas heart without angina pectorisTake 1 tablet (40 mg) by mouth at bedtime. 90 tablet 5Active aspirin 81 mg chewable tablet Indications:Presence of Watchman left atrial appendage closure deviceChew 1 tablet (81 mg) with breakfast. 90 tablet /ctive clopidogrel (Plavix) 75 mg tablet Indications:Presence of Watchman left atrial appendage closure deviceTake 1 tablet (75 mg) by mouth in the morning. 90 tablet /ctive colchicine 0.6 mg tablet Indications:Heart failure with [...] mouth once daily as directed. 90 tablet /ctive metoprolol succinate XL (Toprol-XL) 25 mg 24 hr tablet Indications:Heart failure with reduced ejection fraction (CMS/HCC)Take 0.5 tablets (12.5 mg) by mouth once daily as directed. Do not crush or chew. 45 tablet ctive spironolactone (Aldactone) 25 mg tablet Indications:Chronic systolic heart failure (CMS/HCC)Take 1 tablet (25 mg) by mouth in the morning. 90 tablet ctive dapagliflozin propanediol (Farxiga) 10 mg Indications:Chronic systolic congestive heart failure (CMS/HCC)Take 1 tablet (10 mg) by mouth once daily as directed. 90 tablet Discontinued(Reorder) sacubitril-valsartan (Entresto) 97-103 mg tablet Indications:Chronic systolic heart failure (CMS/HCC),Primary hypertensionTake 1 tablet by mouth two times daily. 180 tablet Discontinued(Stop Taking at Discharge) metoprolol succinate XL (Toprol-XL) 50 mg 24 hr tablet Indications:Chronic systolic heart failure (CMS/HCC)Take 1 tablet (50 mg) by mouth once daily as directed. Do not crush or chew. 90 tablet Discontinued(Stop Taking at Discharge) spironolactone (Aldactone) 25 mg tablet Indications:Chronic systolic heart failure (CMS/HCC)Take 1 tablet (25 mg) by mouth in the morning. 90 tablet /01/2025Discontinued(Reorder) amoxicillin (Amoxil) 500 mg tablet Indications:Presence of Watchman left atrial appendage closure deviceTake 4 tablets (2,000 mg) by mouth 1 (one) time if needed (30-60 minute prior to dental procedures)for up to 20 doses. 20 tablet /Discontinued(Stop Taking at Discharge) metoprolol succinate [...] down for 30 minutes after 11 capsule /Expired Additional Information Patient not taking.Reported on 05/14/2025 Active Problems ProblemNoted DateDiagnosed DateCardiogenic shock05/03/2025 Assessment & Plan (05/03/2025 12:13 PM EDT): - Required Zamora Stacy and dobutamine in ICU. - Improving. [...] US neck. - Start doxy empirically. Sinus jrfopwsulqp55/06/2025 Assessment & Plan (05/03/2025 12:13 PM EDT): - Continue Toprol, Farxiga and spironolactone. - Hold Entresto due to LINDA. Assessment & Plan (04/24/2025 4:13 PM EDT): - Continue Toprol. - Hold Entresto and spironolactone due to hypotension. Assessment & Plan (04/23/2025 3:28 PM EDT): - Continue Toprol. - Hold Entresto and spironolactone due to hypotension. Right ventricular xvqoocunjxw92/06/2025 Assessment & Plan (05/03/2025 12:13 PM EDT): - Required Zamora Stacy and dobutamine in ICU. - Improving. Assessment & Plan (04/24/2025 4:13 PM EDT): - CTA chest showed no PE. - Right cath today. Assessment & Plan (04/23/2025 3:28 PM EDT): - We will order CTA chest due to tachycardia. - Left and right cath tomorrow. Hypotension due to tnslljvmoez70/03/2025 Assessment & Plan (05/03/2025 12:13 PM EDT): [...] showed early tamponade. Patient was taken to laboratory assistant for Pericardiocentesis. Right heart cath was not suggestive for tamponade. 300 ml serosanguinous fluid. - Repeated echo showed mild effusion. Assessment & Plan (04/24/2025 4:13 PM EDT): - Echo showed early tamponade. Patient was taken to laboratory assistant for Pericardiocentesis. Right heart cath was not suggestive for tamponade. 300 ml serosanguinous fluid. - Monitor BP. - Continue colchicine per Cardiology. - Repeated echo showed mild effusion. Assessment & Plan (04/23/2025 3:28 PM EDT): - Echo showed early tamponade. Patient was taken to laboratory assistant for Pericardiocentesis. Right heart cath was not suggestive for tamponade. 300 ml serosanguinous fluid. - Monitor BP. - Continue colchicine per Cardiology. - Repeated echo showed mild effusion. Assessment & Plan (04/22/2025 8:13 PM EDT): - Echo showed early tamponade. Patient was taken to laboratory assistant for Pericardiocentesis. Right heart cath was not suggestive for tamponade. 300 ml serosanguinous fluid and pigtail was placed. - Monitor BP. - Continue colchicine per Cardiology. - Repeat echo on Monday 04/23. Assessment & Plan (04/21/2025 4:54 PM EDT): - Echo showed early tamponade. Patient was taken to laboratory assistant for Pericardiocentesis. Right heart cath was not suggestive for tamponade. 300 ml serosanguinous fluid and pigtail was placed. - Monitor BP. - Continue colchicine per Cardiology. - Follow up blood and fluid cx. - Repeat echo on Monday 04/23. Assessment & Plan (04/20/2025 12:20 PM EDT): - Echo showed early tamponade. Patient was taken to laboratory assistant for Pericardiocentesis. Right heart cath was not [...] small pericardial effusion. Workup was negative for HI Daily Update: patient arrived from [place]. Pain has improved to 2/10 Today's Plan: will continue to control pain as necessary. Cardiology consulted for investigation ofwatchman and other etiologies. Will continue to monitor. NPO for now. Echo showed signs of cardiac tamponade. Patient taken to heart cath with plan for possible pericardiocentesis. Heart failure with reduced ejection aqsobroh98/02/2025 Assessment & Plan (05/03/2025 2:05 PM EDT): [...] as well as daily weight checks. Pericardial ozqwvdek13/02/2025 Assessment & Plan (05/03/2025 12:13 PM EDT): - Echo on admission showed early tamponade. Patient was taken to laboratory assistant for Pericardiocentesis. Right heart cath was not suggestive for tamponade. 300 ml serosanguinous fluid. - Repeated echo showed mild effusion. Assessment & Plan (04/24/2025 4:13 PM EDT): - Echo showed early tamponade. Patient was taken to laboratory assistant for Pericardiocentesis. Right heart cath was not suggestive for tamponade. 300 ml serosanguinous fluid. - Monitor BP. - Continue colchicine per Cardiology. - Repeated echo showed mild effusion. Assessment & Plan (04/23/2025 3:28 PM EDT): - Echo showed early tamponade. Patient was taken to laboratory assistant for Pericardiocentesis. Right heart cath was not suggestive for tamponade. 300 ml serosanguinous fluid. - Monitor BP. - Continue colchicine per Cardiology. - Repeated echo showed mild effusion. Assessment & Plan (04/22/2025 8:13 PM EDT): - Echo showed early tamponade. Patient was taken to laboratory assistant for Pericardiocentesis. Right heart cath was not suggestive for tamponade. 300 ml serosanguinous fluid and pigtail was placed. - Monitor BP. - Continue colchicine per Cardiology. - Repeat echo on Monday 04/23. Assessment & Plan (04/21/2025 4:54 PM EDT): - Echo showed early tamponade. Patient was taken to laboratory assistant for Pericardiocentesis. Right heart cath was not suggestive for tamponade. 300 ml serosanguinous fluid and pigtail was placed. - Monitor BP. - Continue colchicine per Cardiology. - Follow up blood and fluid cx. - Repeat echo on Monday 04/23. Assessment & Plan (04/20/2025 12:20 PM EDT): - Echo showed early tamponade. Patient was taken to laboratory assistant for Pericardiocentesis. Right heart cath was not [...] small pericardial effusion. Workup was negative for HI Daily Update: patient arrived from [place]. Pain has improved to 2/10 Today's Plan: will continue to control pain as necessary. Cardiology consulted for investigation ofwatchman and other etiologies. Will continue to monitor. NPO for now. Echo showed signs of cardiac tamponade. Patient taken to heart cath with plan for possible pericardiocentesis. Vtnkmwxzkble34/08/2024 Assessment & Plan (04/20/2025 12:20 PM EDT): - Follow up urine Na and osmol. - Improving. Assessment & Plan (04/19/2025 1:19 PM EDT): Sodium 126 Will continue to monitor Urine sodium and serum osmolality ordered Yfvnaydqadgu75/02/2025trial bwqyhmgnwrpe50/09/2025 Assessment & Plan (05/03/2025 12:13 PM EDT): [...] plavix Will continue to monitor Paroxysmal atrial wxnkzvzblixz00/04/2024 Overview (01/06/2024): Last Assessment & Plan: In NSR and continue medication. Follow up with cardiology. Chronic gfawvvmxzoav45/15/202310/Nasal polyp31ICD (implantable cardioverter-defibrillator) in place09/15/2022 Assessment & Plan [...] is due for interrogation this coming march Snboiivqdthtky11/14/2023 Overview (09/01/2022): Added automatically from request for surgery [id number] Assessment & Plan (05/03/2025 2:05 PM EDT): [...] (02/19/2023 1:06 PM EDT): As above Depressive /13/9086Gftucsbxenza53/13/2023 Assessment & Plan (02/19/2023 1:06 PM EDT): Continue statin Xtrukhnrehq25/13/2023Seasonal allergic /13/2023Steatosis of liver 08/31/2022Vitamin D kvdkimpqug63/13/2023oronary artery disease involving alturas coronary artery of alturas heart with angina mzifsnle44/19/2022 Assessment & Plan (05/03/2025 12:13 PM EDT): [...] statin therapy lipitor 40mg Chronic systolic heart gqbdkpj5707/06/2022 Assessment & Plan (01/06/2024 12:03 PM EDT): [facility]- currently EF improved from 25-30% to 40% Remains euvolemic and stable Continue GDMT- lipitor, farxiga, toprol, entresto and aldactone Diuretic therapy- continue farxiga Monitor daily weights, I&O, fluid restriction 1.5-2L/day, renal function and electrolytes- Currently stable - improved EF- continue all medications Assessment & Plan (02/19/2023 1:05 PM EDT): [facility]- currently euvolemic without exacerbation Continue GDMT- ASA, lipitor, toprol, farxiga, aldactone and will increase entresto to 49-51 mg bid Repeat BMP in 1 week to assess renal function and electrolyes Diuretic therapy- farxiga- pt is euvolemic currently Monitor daily weights, I&O, fluid restriction 1.5-2L/day, renal function and electrolytes- History of malignant neoplasm of oastknbu11/16/7080Khkqjcjoogwezc90/16/2022 Primary qkwedpvakrrf42/16/2022 Assessment & Plan (05/03/2025 12:13 PM EDT): [...] Continue medications New onset of congestive heart ytwciir7207/02/2022 Assessment & Plan (07/06/2022 10:32 PM EST): [...] complexes he may no BiV ICD -continue vzimynOG52hq, entresto 24-26, will add medications pending echo Syncope and mjssoqek07/15/2022 Overview (07/03/2022): Added automatically from request for surgery [id number] Uncomplicated lreolb6907/29/2012 Assessment & Plan (05/03/2025 12:13 PM EDT): [...] to our equivalent Mild persistent asthma without llrhenvobskh27/11/2013 Overview (01/06/2024): Last Assessment & Plan: No SOB and continue advair. Use albuterol PRN. Benign essential yjpkyxewmrxe31Hyperlipidemia07/02/2008 05/11/2023 Assessment & Plan (01/06/2024 11:59 AM EDT): Script for liver function and lipid levels given to pt Continue statin Malignant tumor of gcgpyrrq52 Resolved Problems ProblemNoted DateDiagnosed DateResolved DateHx of benign neoplasm of prostate Encounters DateTypeDepartmentCare FncpFznirebyomv91/13/2025Telephone [place] [address] [place] [address] Mercedes Prado MA 05/30/2025Results Follow-Up [facility] [address] [place] [address] Neelam Gutierrez CNP Cardiac event bfghzxr4505/25/2025Refill [facility] [address] [place] [address] Zaida Farias MA Chronic systolic heart failure (CMS/HCC)05/24/2025 10:35 AM ESTAncillary Procedure [facility] [address] [place] [address] Pre-operative cardiovascular examination, ICD in place05/21/2025Telephone [facility] [address] [facility] [place] [address] Radha Green MA 05/18/2025Orders Only [facility] [address] [place] [address] Mitesh Vernon MD 05/14/2025 1:40 PM EDTOffice Visit [facility] [address] [facility] [place] [address] Elliott Nettles CNP S/P pericardiocentesis (Primary Dx); Chronic systolic heart failure (CMS/HCC); Nonischemic cardiomyopathy (CMS/HCC); ICD (implantable cardioverter-defibrillator) in place; Paroxysmal atrial fibrillation (CMS/HCC); Benign hypertensive heart disease with heart failure (CMS/HCC); Chronic systolic congestive heart failure (CMS/HCC); Heart failure with reduced ejection fraction (CMS/HCC)05/07/2025 10:40 AM EDT Ancillary Procedure [facility] [address] [place] [address] Pre-operative cardiovascular examination, ICD in place05/07/2025Telephone [facility] Heart [facility] [address] [place] [address] Yelena Lara RN HF post discharge call and inpt survey sent.05/07/2025Orders Only [facility] [address] [facility] [place] [address] Mercedes Prado MA LINDA (acute kidney injury) (Primary Dx); Ehwjigoftxxx86/17/2025Orders Only [facility] [address] [place] [address] Bobo Raymond MD 04/24/2025 3:00 PM EDT - 04/24/2025 4:00 PM EDTSurgery [facility] Heart [facility] [place] [facility] [address] [facility] [place] [address] Hay William MD Right heart cath [31172 (CPT??)]04/24/2025Orders Only [facility] [address] [facility] [place] [address] Mitesh Vernon MD 04/23/2025 8:35 AM EDTAncillary Procedure [facility] [address] [facility] [place] [address] Pre-operative cardiovascular examination, ICD in place04/19/2025 2:45 PM EDT - 04/19/2025 5:15 PM EDTSurgery [facility] [address] [place] [address] Venu Samaniego MD Left heart cath04/19/2025 10:46 AM EDT - 05/04/2025 4:33 PM EDTHospital Encounter [facility] [address] [place] [address] Benedict Pascual MD Noori, Zaid, MD Moukarbel, [...] heart failure (CMS/HCC) Discharge Disposition: Home-Health Care Svc (06)04/19/20255888Lkcgrm71/16/2025 10:20 AM EDTOffice Visit [facility] [address] [place] [address] Neelam Gutierrez CNP Paroxysmal atrial fibrillation (CMS/HCC) (Primary Dx); Presence of Watchman left atrial appendage closure device; Chronic systolic heart failure (CMS/HCC); Coronary artery disease involving alturas coronary artery of alturas heart without angina pectoris; ICD (implantable cardioverter-defibrillator) in place; Nonischemic cardiomyopathy (CMS/HCC); Benign hypertensive heart disease with heart failure (CMS/HCC)03/26/2025 2:34 PM EDT - 03/26/2025 11:59 PM EDTHospital Encounter [facility] CT Imaging [address] [place] [address] Prediabetes (Primary Dx); Paroxysmal atrial fibrillation (CMS/HCC); Presence of Watchman left atrial appendage closure device Discharge Disposition: Home or Self Care ()03/23/2025 10:45 AM EDTAncillary Procedure [facility] [address] [place] [address] Pre-operative cardiovascular examination, ICD in place03/23/2025Orders Only [facility] [address] [place] [address] Dariel Wagoner MD from Last 3 Months Immunizations ImmunizationAdministration DatesNext QubILK7309/01/2021Influenza, Unspecified 07/29/2012Unspecified Sars-Cov-2 Fgttfosiayc91/12/2021,10/11/2020,2020 Family History Medical HistoryRelationNameCommentsEmphysemaFatherStrokeMotherpacemakerMother RelationNameStatusCommentsFatherDeceasedMotherDeceased Social History Tobacco UseTypesPacks/DayYears UsedDateSmoking Tobacco: FormerCigarettes Smokeless Tobacco: Never Tobacco Cessation:Counseling Given: Not Answered Alcohol UseStandard Drinks/ZtbzRxucglcyPoa43 (1 standard drink = 0.6 oz pure alcohol)occasionalAHC UtilitiesAnswerDate RecordedIn the past 12 months has the [place], gas, oil, or water [employer] threatened to shut off services in your home?No04/19/2025Humiliation, Afraid, Rape, and Kick questionnaireAnswerDate RecordedWithin the last year, have you been afraid of your partner or ex-partner?No04/19/2025Emotionally AbusedNot on file04/19/2025Physically Abused Not on file04/19/2025Sexually AbusedNot on file04/19/2025Overall Financial Resource Strain (CARDIA)AnswerDate RecordedHow hard is it for you to pay for the very basics like food, housing, medical care, and heating?Not hard at all 04/19/2025UT Safety & EnvironmentAnswerDate RecordedFear of Current or Ex-PartnerNot on file09/09/2023Emotionally AbusedNot on file09/09/2023hysically AbusedNot on file09/09/2023Sexually AbusedNot on file09/09/2023hysically or Sexually AbusedNot on file09/09/2023TransportationAnswerDate RecordedIn the [...] file04/19/2025Sex and Gender InformationValueDate RecordedSex Assigned at RaraiDrhn80/06/2025 8:51 AM EDTLegal JbtBiqi2401/14/2022 10:53 PM EDTGender RuyyytbjXbfs24/06/2025 8:51 AM EDT Sexual OrientationHeterosexual or Qkwriyea21/06/2025 8:51 AM EDT Last Filed Vital Signs Vital SignReadingTime TakenCommentsBlood Zxnzijlx195/7610/ 1:34 PM EDT Psxcz39980/ 1:34 PM ZPUBpbofiolexl06.9 ??C (98.4 ??F)05/04/2025 12:07 PM EDTRespiratory Bypm103705/04/2025 12:07 PM EDTOxygen Vcdfvynjqj83%05/14/2025 1:34 PM EDTInhaled Oxygen Concentration--Xrvaeh03.1 kg (170 lb)05/14/2025 1:34 PM EDT Jebels714.7 cm (5' 8 )05/14/2025 1:34 PM EDTBody Mass Index25.8505/14/2025 1:34 PM EDT Plan of Treatment DateTypeDepartmentCare Team (Latest Contact Info)Nnvgwffcbyc31/02/2025 9:00 AM ESTOffice Visit [facility] [address] [place] [address] Bobo Raymond MD [address] [place] [address] 06/22/2025 10:00 AM ESTOffice Visit [facility] [address] [facility] [place] [address] Hay William MD [address] [facility] [address] [place] [address] Health MaintenanceDue DateLast DoneCommentsCT Azddipbybilz64/04/1956Diabetes: Hemoglobin A1C1955FIT-DNA1955FIT1955FOBT1955Medicare Annual Wellness (AWV)1955 4380Aftbamgktimll83/04/1956Depression Screening 1967Pneumococcal Vaccine: 50+ Years (1 of 2 - PCV)09/19/1974Adult Tetanus 09/19/1977Zoster Vaccines (1 of 2)09/19/20052323Dshxzdluzlz91/09/ Colorectal Cancer Reufnkavn05/09/2018COVID-19 Vaccine ( season) 511/06/2021, 05/30/2021, 10/11/2020, Additional history existsInfluenza Vaccine (#1)501/05/2013Fall Risk Plzwpsudi39HIB VaccinesAged OutNo longer eligible based on patient's [...] IdentifierShelf Expiration DateModel / Serial / LotDefib,Courtney Df4-Dr - [id number] - [id number] Implanted:Qty: 1 on 09/04/2022 [facility] [id number] / [id number] / [employer]vinson 4-Front S Active Fix Single Coil 59cm Implanted:Qty: 1 on 09/04/2022 by Bobo Raymond MD at [facility] [id number] / [id number] / Ingevity+ Is-1 Bi Positive Fix Ra/Rv 52cm Implanted:Qty: 1 on 09/04/2022 by Bobo Raymond MD at [facility] [id number] / [id number] / Closure,Watchman,Flxpro,35mm - [id number] Implanted:Qty: 1 on 02/06/2025 by Hay [facility] ClosureLeft: [facility] [id number] / [id number] Procedures Procedure NamePriorityDate/TimeAssociated DiagnosisCommentsCARDIAC DEVICE CHECK CHECK - KLQTVUMiiontp30/13/2025 11:17 AM EST Pre-operative cardiovascular examination, ICD in place CARDIAC DEVICE CHECK CHECK - YRXEHKWisxwgq13/04/2025 10:04 AM EST Pre-operative cardiovascular examination, ICD in place CARDIAC DEVICE CHECK - REMOTE - EIAKdvibsf76/31/2025 12:00 AM EDTCARDIAC DEVICE CHECK CHECK - EGEVKVEdmqeff93/21/2025 9:23 AM EDT Pre-operative cardiovascular examination, ICD in place BASIC METABOLIC PANELAdd-On05/04/2025 4:18 AM EDT CBC WITH AUTO HNIOOUVGTABLWxyaxeg46/17/2025 4:18 AM EDT VYVOONAHYJHdguvik68/17/2025 4:18 AM EDT DVVRYFKCALsgzvxz60/17/2025 4:18 AM EDT CBC AND AIPRMGHOJNJKHhpydrc18/17/2025 4:18 AM EDT CARDIAC DEVICE CHECK - REMOTE - PBFFtojuku08/17/2025 12:00 AM EDTUS NECKRoutine 05/03/2025 3:56 PM EDT BODY FLUID GZYGGQRSomwjbg84/16/2025 12:59 PM EDT RESPIRATORY ASSESS AND TREAT SHXMWAFSDxxiyke10/16/2025 8:00 AM EDTBASIC METABOLIC PANELAdd-On05/03/2025 3:51 AM EDT CBC WITH AUTO NKZHTBQROUMDXvwlmxn47/16/2025 3:51 AM EDT VTDWBSUHDEChreqch14/16/2025 3:51 AM EDT LXELIFKBTYtwjbzq86/16/2025 3:51 AM EDT CBC AND PQTEOTDUAIORKalgogp28/16/2025 3:51 AM EDT RESPIRATORY ASSESS AND TREAT GWROSXVXEcfilph75/15/2025 8:00 AM EDTCBC WITH AUTO RDFZEPSOTOUTIpqqhjo74/15/2025 3:13 AM EDT TWEDSJHOKJLqninhb29/15/2025 3:13 AM EDT UUFDRRVPHBiamwhs20/15/2025 3:13 AM EDT COMPREHENSIVE METABOLIC NTGFZPnzshdz00/15/2025 3:13 AM EDT CBC AND KISWYWTUTICLSxwnygr00/15/2025 3:13 AM EDT PQGNWQBXVGOumkg96/14/2025 8:30 AM EDT PFTZPWNQUFrrdf82/14/2025 8:30 AM EDT BASIC METABOLIC EDWYXEtycy68/14/2025 8:30 AM EDT RESPIRATORY ASSESS AND TREAT WCELKDEQPaupqzb03/14/2025 8:00 AM EDTPHOSPHORUS Add-On05/01/2025 3:05 AM EDT MAGNESIUMAdd-On05/01/2025 3:05 AM EDT CBC WITH AUTO HDHXPTHVMJPQUjuplff44/14/2025 3:05 AM EDT COMPREHENSIVE METABOLIC XIRMGRuimtuz48/14/2025 3:05 AM EDT CBC AND HENDWFOHGIKSJtcjgkt30/14/2025 3:05 AM EDT GNJZVMFACDFskvx54/14/2025 12:47 AM EDT AFAFKHVZVLmqqx45/14/2025 12:47 AM EDT BASIC METABOLIC TJQGHCufme28/14/2025 12:47 AM EDT OWQDNVCNVIYjixd04/13/2025 8:12 PM EDT BHGZRPUBMXvrce13/13/2025 8:12 PM EDT BASIC METABOLIC TIFLLQlfae84/13/2025 8:12 PM EDT PHOSPHORUSPending Vdfkwnrat98/13/2025 3:22 PM EDT MAGNESIUMPending Gdhrhiahs88/13/2025 3:22 PM EDT BASIC METABOLIC PANELPending Rmrfhjurf51/13/2025 3:22 PM EDT PHOSPHORUSPending Zqlxrysho35/13/2025 11:13 AM EDT MAGNESIUMPending Dpcvaalrm21/13/2025 11:13 AM EDT BASIC METABOLIC PANELPending Wptgclupq11/13/2025 11:13 AM EDT LIMITED ECHOCARDIOGRAM (TTE) W/ LTD DOPPLER AND COLOR BTTGJfegwnd27/13/2025 8:35 AM EDT RESPIRATORY ASSESS AND TREAT EGFFCPBOMjjcqkv81/13/2025 8:00 AM EDTPHOSPHORUS Pending Dsdczikpe69/13/2025 7:48 AM EDT MAGNESIUMPending Xywjqjnsg53/13/2025 7:48 AM EDT BASIC METABOLIC PANELPending Rcxfebahe80/13/2025 7:48 AM EDT CBC WITH AUTO DIFFERENTIALPending Dmlvskccx54/13/2025 4:10 AM EDT COMPREHENSIVE METABOLIC PANELPending Ulbvnjvnc98/13/2025 4:10 AM EDT CBC AND WJBJQBNPQNOAJzdityd61/13/2025 4:10 AM EDT PHOSPHORUSPending Ajxfdczbh03/13/2025 4:10 AM EDT MAGNESIUMPending Ugyfqabed73/13/2025 4:10 AM EDT PHOSPHORUSPending Pvgppjgil82/13/2025 12:09 AM EDT MAGNESIUMPending Qbcczlssa28/13/2025 12:09 AM EDT BASIC METABOLIC PANELPending Hmsbuvlnf76/13/2025 12:09 AM EDT PHOSPHORUSPending Kwgopbpyn29/12/2025 8:02 PM EDT MAGNESIUMPending Pyvepnhsc14/12/2025 8:02 PM EDT BASIC METABOLIC PANELPending Udhpgywwb47/12/2025 8:02 PM EDT BLOOD GAS, VENOUSPending Hoyveuefb85/12/2025 3:38 PM EDT PHOSPHORUSPending Cwetmbcoc38/12/2025 3:38 PM EDT MAGNESIUMPending Gxcjjlmhf86/12/2025 3:38 PM EDT BASIC METABOLIC PANELPending Hriklyhsw43/12/2025 3:38 PM EDT PHOSPHORUSPending Cbrfomnvd58/12/2025 1:02 PM EDT MAGNESIUMPending Ouvzjeqxy31/12/2025 1:02 PM EDT BASIC METABOLIC PANELPending Tfifegatl75/12/2025 1:02 PM EDT XR CHEST 1 QGFHGvfepel55/12/2025 11:20 AM EDT FERRITINAdd-On04/29/2025 8:14 AM EDT IRON AND TIBCAdd-On04/29/2025 8:14 AM EDT PHOSPHORUSPending Rubhvgwmn42/12/2025 8:14 AM EDT MAGNESIUMPending Lbrmloyxw41/12/2025 8:14 AM EDT BASIC METABOLIC PANELPending Lopudbmhh47/12/2025 8:14 AM EDT RESPIRATORY ASSESS AND TREAT PZDWHETAKsvtkhd38/12/2025 8:00 AM EDTCBC WITH AUTO DIFFERENTIALPending Ncfnfqupq62/12/2025 3:04 AM EDT CBC AND YXLESCJPKTVJJrxnpoe67/12/2025 3:04 AM EDT PHOSPHORUSPending Pnpjtfkyh24/12/2025 3:04 AM EDT MAGNESIUMPending Ofuagteyo82/12/2025 3:04 AM EDT BASIC METABOLIC PANELPending Oglwpdmnw37/12/2025 3:04 AM EDT COMPREHENSIVE METABOLIC PANELPending Qdvbqfkgx71/12/2025 2:38 AM EDT AMMONIAPending Gsrvrmzbw59/12/2025 2:38 AM EDT CRRT THERAPY FLUID MQZVIGjqlber15/12/2025 12:30 AM EDTPHOSPHORUSPending Zzmeboneo55/12/2025 12:22 AM EDT MAGNESIUMPending Fafsurmdt30/12/2025 12:22 AM EDT BASIC METABOLIC PANELPending Dfxrbxlve63/12/2025 12:22 AM EDT PHOSPHORUSPending Ivjlkvrou47/11/2025 8:10 PM EDT MAGNESIUMPending Buctbjwzs65/11/2025 8:10 PM EDT BASIC METABOLIC PANELPending Ruhxdwkiz65/11/2025 8:10 PM EDT PHOSPHORUSPending Yhoelviqc71/11/2025 3:57 PM EDT COMPREHENSIVE METABOLIC PANELPending Tokdsomau63/11/2025 3:57 PM EDT MAGNESIUMPending Ttacgslne89/11/2025 3:57 PM EDT PHOSPHORUSPending Bgoymcilv15/11/2025 1:46 PM EDT MAGNESIUMPending Azucntule34/11/2025 1:46 PM EDT BASIC METABOLIC PANELPending Pvzmqziou17/11/2025 1:46 PM EDT POCT GLUCOSE METER UNSOLICITED RZSYFPOAuotuir04/11/2025 1:44 PM EDT ABG UNSOLICITED PAYCSNSDwglbub49/11/2025 8:54 AM EDT PHOSPHORUSPending Opvsqgoyy96/11/2025 8:37 AM EDT MAGNESIUMPending Cucdxzsvg72/11/2025 8:37 AM EDT BASIC METABOLIC PANELPending Facatqlcy33/11/2025 8:37 AM EDT ABG PWQVAclpzvb27/11/2025 8:19 AM EDTRESPIRATORY ASSESS AND TREAT PROTOCOL Cvmwtun4204/28/2025 8:00 AM EDTCBCPending Ymneateak24/11/2025 3:21 AM EDT RESPIRATORY ASSESS AND TREAT GOYAXSWYOcgpgxk02/11/2025 3:10 AM EDTPHOSPHORUS Add-On04/28/2025 3:06 AM EDT MAGNESIUMAdd-On04/28/2025 3:06 AM EDT BASIC METABOLIC PANELPending Pzigooket96/11/2025 3:06 AM EDT XR ABDOMEN 1 NHQMRZVW96/11/2025 12:50 AM EDT CRRT THERAPY FLUID TUEMUMlzglnp08/11/2025 12:30 AM URQCIINMMDCSDJtctt71/11/2025 12:06 AM EDT EUKMZTVZTQdwto43/11/2025 12:06 AM EDT BASIC METABOLIC HQJKLRzbfp24/11/2025 12:06 AM EDT MAGNESIUMAdd-On04/27/2025 7:57 PM EDT HEMOGLOBIN AND HEMATOCRIT, YZUZRYkobene12/10/2025 7:57 PM EDT BASIC METABOLIC SIYRKLefvjbw59/10/2025 7:57 PM EDT CRRT THERAPY FLUID HPODWBqlcute29/10/2025 6:18 PM DWYVXXFNELISCYvbbp53/10/2025 5:38 PM EDT HMSDAGFGIBsogl60/10/2025 5:38 PM EDT BASIC METABOLIC IPSHIWfcfv60/10/2025 5:38 PM EDT POCT GLUCOSE METER UNSOLICITED BGZOLCSGflgmwz10/10/2025 5:14 PM EDT POCT GLUCOSE METER UNSOLICITED HQCSCTHGvwugit94/10/2025 12:01 PM EDT POCT GLUCOSE METER UNSOLICITED TZNSSZGIlhqhfz27/10/2025 10:07 AM EDT YGMWHGTLMHFtgar30/10/2025 5:36 AM EDT NVPLVGUFYPpdpp96/10/2025 5:36 AM EDT BASIC METABOLIC TRYGDMozno95/10/2025 5:36 AM EDT RNZYxawjxi38/10/2025 5:36 AM EDT CO-HGJMFOKMSvhches87/10/2025 4:25 AM EDT SNQTAALFZUAtnkp90/09/2025 11:59 PM EDT BUIHYVUMIFqdcm47/09/2025 11:59 PM EDT BASIC METABOLIC HDABILdvgf82/09/2025 11:59 PM EDT UEVFKQWRZMJxpex93/09/2025 4:24 PM EDT BASIC METABOLIC DADFZTsqhe38/09/2025 4:24 PM EDT ULYTSNDNSCjojt99/09/2025 4:24 PM EDT UREA NITROGEN, URINEPending Hsgjfoeik94/09/2025 8:40 AM EDT SODIUM, URINE, RANDOMPending Ftomxsrvu15/09/2025 8:40 AM EDT CREATININE, URINE, RANDOMPending Pmxhrybbm14/09/2025 8:40 AM EDT URINALYSISPending Gmksgvpin90/09/2025 8:40 AM EDT UBSIhfxpcc53/09/2025 3:05 AM EDT JHGZXMXFPWixaayo79/09/2025 3:05 AM EDT BASIC METABOLIC GOBVTXbnmapv08/09/2025 3:05 AM EDT RQSHBIVCWLEgwswzv40/09/2025 3:05 AM EDT CO-FCDNVFCKBskzfrd48/09/2025 2:39 AM EDT XR CHEST 1 XFQMQJWP64/08/2025 4:17 PM EDT BASIC METABOLIC PANELPending Ihhwdiomu34/08/2025 1:12 PM EDT PHOSPHORUSPending Zntkrsjrp14/08/2025 3:22 AM EDT MAGNESIUMPending Csnlljchn97/08/2025 3:22 AM EDT CBCPending Sbtyobjuj36/08/2025 3:22 AM EDT BASIC METABOLIC PANELPending Ybjeghlgq12/08/2025 3:22 AM EDT SWAN (FLOW DIRECTED CATH) BCOQSOHNXKamuunt93/07/2025 3:42 PM EDT Right ventricular dysfunction RIGHT HEART LJZAYyqcecc37/07/2025 3:42 PM EDT Right ventricular dysfunction LIPID PANELAdd-On04/24/2025 4:07 AM EDT MAGNESIUMPending Sesjgrofc03/07/2025 4:07 AM EDT CBCPending Fdeppsqac95/07/2025 4:07 AM EDT BASIC METABOLIC PANELPending Rxxkhkrfa38/07/2025 4:07 AM EDT CARDIAC DEVICE CHECK - REMOTE - JAOAmlhnwc79/07/2025 12:00 AM EDTCTA CHEST W IV VPJKFTLVHZCA52/06/2025 4:47 PM EDT LIMITED ECHOCARDIOGRAM (TTE) W/ LTD DOPPLER AND COLOR UZHOAqjvmhn63/06/2025 7:56 AM EDT POCNZYGFTAJUC86/06/2025 5:02 AM EDT CBC WITH AUTO DIFFERENTIALPending Rotrxyote30/06/2025 5:02 AM EDT CBC AND URCHMIXAPBIKAsgdrry31/06/2025 5:02 AM EDT COMPREHENSIVE METABOLIC PEIXNUYTV40/06/2025 5:02 AM EDT C-REACTIVE PROTEINPending Krsujvlqd36/06/2025 5:[address] CERVICAL SPINE WO IV WCYYGDVPNMVB53/06/2025 3:[address] HEAD WO IV WDQQPUDYLBPX63/06/2025 3:59 AM EDT ECG 12-LNOVNBEZ41/06/2025 3:34 AM EDT LIMITED ECHOCARDIOGRAM (TTE) W/ LTD DOPPLER AND COLOR SLGGKcfookq85/03/2025 1:51 PM EDT ZKSBPIVJNSQpvojap24/03/2025 12:25 PM EDT BLOOD SIURZFEBkptjfe06/03/2025 10:09 AM EDT BLOOD OBRPBYQUgxzdho17/03/2025 10:09 AM EDT CORTISOLSTAT Add-on04/20/2025 5:15 AM EDT UMIRkgvtnd32/03/2025 5:15 AM EDT BASIC METABOLIC QIDITQhuhafk95/03/2025 5:15 AM EDT SODIUM, URINE, OYSLZFUfnddqx85/02/2025 8:28 PM EDT ECG 12-LKDSGijlgee37/02/2025 6:35 PM EDT CMKDFOLFHPRrnjnyw37/02/2025 6:26 PM EDT B-TYPE NATRIURETIC WEWDXDAZowiojb89/02/2025 6:25 PM EDT LIMITED ECHO (TTE)Mejfryl2904/19/2025 3:37 PM EDT PATHOLOGY SVSVDDCudersa93/02/2025 3:23 PM EDT NON-STRUCTURAL TEST ENGINEER CYTOLOGY - CELLULAR IPMYEordvzk77/02/2025 3:23 PM EDT BODY FLUID CELL ZUGFMPKJOXATZopsjgw01/02/2025 3:23 PM EDT BODY FLUID CELL COUNT WITH JGTDYWEDEYPAUxyckhh99/02/2025 3:23 PM EDT BODY FLUID CELL COUNT WITH AOYIGRCZQMQITbvlpbr81/02/2025 3:23 PM EDT ANAEROBIC HNXEVRTOumbkcd84/02/2025 3:23 PM EDT BODY FLUID GXZXIJVVbpghqx12/02/2025 3:23 PM EDT BODY FLUID CULTURE AND ANAEROBIC ZISEEQTNyshfwu39/02/2025 3:23 PM EDT EEAIJEAPSLAGIQRXBCHynuodt57/02/2025 3:22 PM EDT Pericardial effusion RIGHT HEART UQCNFjqdlru76/02/2025 3:22 PM EDT Pericardial effusion LEFT HEART MZCOMextitw67/02/2025 3:22 PM EDT Pericardial effusion POCT HBO2%Errprrb7804/19/2025 2:47 PM EDT POCT HBO2%Nrkolnh3804/19/2025 2:47 PM EDT LIGHT GREEN JPJTlcpjnq63/02/2025 2:44 PM EDT ZVKApwccki17/02/2025 2:44 PM EDT C-REACTIVE DUQQMMUQiaunly99/02/2025 2:44 PM EDT LAVENDER HZGUadrlyf00/02/2025 2:32 PM EDT EXTRA VALIPDbkamle32/02/2025 2:32 PM EDT COMPLETE ECHO (TTE)Vhhlhgg1004/19/2025 1:13 PM EDT SEDIMENTATION RATEAdd-On04/19/2025 12:14 PM EDT HIGH SENSITIVITY TROPONIN IAdd-On04/19/2025 12:14 PM EDT COMPREHENSIVE METABOLIC BDOPECpkbrad86/02/2025 12:14 PM EDT TBPIizqiuh27/02/2025 12:14 PM EDT ECG 12-APVYJujavxk13/02/2025 12:09 PM EDT CTA CHEST W IV MSNGNWASQscjlwh36/08/2025 5:07 PM EDT Paroxysmal atrial fibrillation (CMS/HCC) Presence of Watchman left atrial appendage closure device CREATININE, XGWIBWviaknj67/08/2025 2:43 PM EDT Prediabetes MVRSgoctiz00/08/2025 2:43 PM EDT Paroxysmal atrial fibrillation (CMS/HCC) BASIC METABOLIC DDHSRYcaaahk09/08/2025 2:43 PM EDT Paroxysmal atrial fibrillation (CMS/HCC) CARDIAC DEVICE CHECK CHECK - RAWDIYIcagmqy69/08/2025 11:56 AM EDT Pre-operative cardiovascular examination, ICD in place CARDIAC DEVICE CHECK - REMOTE - UHTHnabupt25/05/2025 12:00 AM EDTCARDIAC DEVICE CHECK CHECK - MQPLZOJcurdqk19/13/2025 3:36 PM EDT Pre-operative cardiovascular examination, ICD in place from Last 3 Months Results * CARDIAC DEVICE CHECK - REMOTE - ICD (05/31/2025 11:17 AM EST) Only the most recent of5 resultswithin the time period is included. ComponentValueRef RangeTest MethodAnalysis TimePerformed AtPathologist Signature BSA1.61s7ZMYDAEffvrocx (Source)Anatomical Location / LateralityCollection Method / VolumeCollection TimeReceived Time Narrative Authorizing ProviderResult TypeResult StatusPadevin Segundo MDCV IMPLANTABLE CARDIAC DEVICE PROCEDURESFinal ResultPerforming OrganizationAddressCity/State/ZIP Code Phone Number CPACS * Cardiac device check - Remote ICD (05/18/2025 12:00 AM EDT) Only the most recent of4 resultswithin the time period is included. Anatomical RegionLateralityModalityOtherSpecimen (Source)Anatomical Location / LateralityCollection Method / VolumeCollection TimeReceived Time05/18/2025 Narrative Authorizing ProviderResult TypeResult StatusSamelissa Jake Vernon MDCV IMPLANTABLE CARDIAC DEVICE PROCEDURESFinal Result * (ABNORMAL) CBC auto differential (05/04/2025 4:18 AM EDT) Only the most recent of7 resultswithin the time period is included. ComponentValueRef RangeTest MethodAnalysis TimePerformed AtPathologist Signature Auto WBC6.044.00 - 10.60 10*3/uL05/04/2025 5:15 AM [facility] ([facility]) RBC3.10(L)4.20 - 5.70 10*6/uL05/04/2025 5:15 AM [facility] ([facility]) Hemoglobin9.8(L)13.0 - 17.0 g/dL05/04/2025 5:15 AM [facility] ([facility]) Slbcoqojmx38.3(L)39.0 - 50.0 %05/04/2025 5:15 AM [facility] ([facility]) MCV91.382.0 - 98.0 fL05/04/2025 5:15 AM [facility] ([facility])MCH31.627.0 - 33.0 pg05/04/2025 5:15 AM [facility] ([facility])MCHC34.632.0 - 35.0 g/dL05/04/2025 5:15 AM [facility] ([facility])RDW14.711.5 - 15.0 % 05/04/2025 5:15 AM [facility] ([facility])Neutrophils %70.440.0 - 72.0 % 05/04/2025 5:15 AM [facility] ([facility])Lymphocytes %14.2(L)20.0 - 45.0 %05/04/2025 5:15 AM [facility] ([facility])Monocytes %14.2(H)5.0 - 12.0 % 05/04/2025 5:15 AM [facility] ([facility])Eosinophils %0.50.0 - 6.0 % 05/04/2025 5:15 AM [facility] ([facility])Basophils %0.20.0 - 1.0 % 05/04/2025 5:15 AM [facility] ([facility])Neutrophils Absolute4.251.60 - 7.60 10*3/uL05/04/2025 5:15 AM [facility] ([facility])Lymphocytes Absolute 0.86(L)1.20 - 4.00 10*3/uL05/04/2025 5:15 AM [facility] ([facility]) Monocytes Absolute0.860.10 - 1.00 10*3/uL05/04/2025 5:15 AM [facility] ([facility])Eosinophils Absolute0.030.00 - 0.50 10*3/uL05/04/2025 5:15 AM [facility] ([facility])Basophils Absolute0.010.00 - 0.20 10*3/uL05/04/2025 5:15 AM [facility] ([facility])Tdkzyuwpi827119 - 400 10*3/uL05/04/2025 5:15 AM [facility] ([facility])nRBC %0.00 %05/04/2025 5:15 AM [facility] ([facility])Immature Granulocytes %0.50.0 - 1.0 %05/04/2025 5:15 AM [facility] ([facility])Immature Granulocytes Absolute0.030.00 - 0.20 10*3/uL05/04/2025 5:15 AM [facility] ([facility])Specimen (Source)Anatomical Location / LateralityCollection Method / VolumeCollection TimeReceived TimeBloodVenous blood specimen / UnknownVenipuncture / Xvdooyy7005/04/2025 4:18 AM EDT1 4:48 AM EDT Narrative Authorizing ProviderResult TypeResult StatusAajohann Anthony [facility] BLOOD ORDERABLES Final ResultPerforming OrganizationAddressCity/State/ZIP CodePhone Number [facility]) [address] [place] [address] * Phosphorus (05/04/2025 4:18 AM EDT) Only the most recent of30 resultswithin the time period is included. ComponentValueRef RangeTest MethodAnalysis TimePerformed AtPathologist Signature Phosphorus3.12.5 - 5.0 mg/dL05/04/2025 5:12 AM [facility]) Specimen (Source)Anatomical Location / LateralityCollection Method / Volume Collection TimeReceived TimeBloodVenous blood specimen / UnknownVenipuncture / Cvhxqvk6405/04/2025 4:18 AM EDT1 4:46 AM EDT Narrative Authorizing ProviderResult TypeResult StatusDg Power [facility] BLOOD ORDERABLESFinal ResultPerforming OrganizationAddressCity/State/ZIP CodePhone Number [facility] ([facility]) [address] [place] [address] * Magnesium (05/04/2025 4:18 AM EDT) Only the most recent of33 resultswithin the time period is included. ComponentValueRef RangeTest MethodAnalysis TimePerformed AtPathologist Signature Magnesium2.01.9 - 2.7 mg/dL05/04/2025 5:12 AM [facility]) Specimen (Source)Anatomical Location / LateralityCollection Method / Volume Collection TimeReceived TimeBloodVenous blood specimen / UnknownVenipuncture / Mnwuqvt4605/04/2025 4:18 AM EDT1 4:46 AM EDT Narrative Authorizing ProviderResult TypeResult StatusYolupe MURRAY BLOOD ORDERABLESFinal ResultPerforming OrganizationAddressCity/State/ZIP CodePhone Number [facility] ([facility]) [address] [place] [address] * (ABNORMAL) Basic metabolic panel (05/04/2025 4:18 AM EDT) Only the most recent of31 resultswithin the time period is included. ComponentValueRef RangeTest MethodAnalysis TimePerformed AtPathologist Signature Htruqr162(L)136 - 145 mmol/L1 9:10 AM [facility] ([facility]) Potassium3.73.5 - 5.1 mmol/L1 9:10 AM [facility] ([facility]) Ybqsomkj13(L)98 - 107 mmol/L1 9:10 AM [facility] ([facility])CO2 2321 - 31 mmol/L1 9:10 AM [facility] ([facility])YGT557 - 25 mg/dL05/04/2025 9:10 AM [facility] ([facility])Creatinine1.58(H)0.70 - 1.30 mg/dL05/04/2025 9:10 AM [facility] ([facility])Wriglyy6541 - 100 mg/dL05/04/2025 9:10 AM [facility] ([facility])Calcium7.3(L)8.6 - 10.3 mg/dL05/04/2025 9:10 AM [facility] ([facility])Anion Epp239 - 20 mmol/L 05/04/2025 9:10 AM [facility] ([facility])eGFR47.1(L)>60.0 mL/min/1.73m*2 05/04/2025 9:10 AM [facility] ([facility])Comment:[facility]???s estimated glomerular filtration rate (eGFR) will [...] group of individuals. BUN/Creatinine Ratio15.81 9:10 AM [facility] ([facility])Specimen (Source)Anatomical Location / LateralityCollection Method / VolumeCollection TimeReceived TimeBloodVenous blood specimen / UnknownVenipuncture / Unknown 05/04/2025 4:18 AM EDT1 4:46 AM EDT Narrative Authorizing ProviderResult TypeResult StatusOmar Samara MURRAY BLOOD ORDERABLES Final ResultPerforming OrganizationAddressCity/State/ZIP CodePhone Number [facility] ([facility]) [address] [place] [address] * US neck (05/03/2025 3:56 PM EDT)Anatomical [...] Virgilio Barillas MD. Authorizing ProviderResult TypeResult StatusOmareddy MORALESG US PROCEDURESFinal Result * (ABNORMAL) Body fluid culture (05/03/2025 12:59 PM EDT) Only the most recent of2 resultswithin the time period is included. ComponentValueRef RangeTest MethodAnalysis TimePerformed AtPathologist Signature CultureLight Growth Staphylococcus lugdunensis(A) FLORA 05/05/2025 7:07 AM [facility] ([facility])Comment:Gram Stain Result Moderate Polymorphonuclear okbriipcxe25/18/2025 7:07 AM [facility] ([facility])Gram Stain ResultNo organisms seen05/05/2025 7:07 AM [facility] ([facility])Specimen (Source)Anatomical Location / LateralityCollection Method / VolumeCollection TimeReceived TimeFluidNeck structure / UnknownNon-blood Collection / Rjokewu8505/03/2025 12:59 PM EDT1 1:20 PM EDT Narrative [facility] ([facility]) - 05/05/2025 7:07 AM EDT Rare Growth Skin Darlyn OrganismAntibioticMethodSusceptibilityStaphylococcus lugdunensisClindamycinMIC <=0.5 ug/ml: Susceptible Staphylococcus lugdunensisOxacillinMIC <=0.25 ug/ml: Susceptible Staphylococcus lugdunensisTetracyclineMIC <=0.5 ug/ml: Susceptible Staphylococcus lugdunensisVancomycinMIC <=0.5 ug/ml: Susceptible Authorizing ProviderResult TypeResult StatusOmareddy MURRAY MICROBIOLOGY - GENERAL ORDERABLESFinal ResultPerforming OrganizationAddressCity/State/ZIP Code Phone Number [facility] ([facility]) [address] [place] [address] * (ABNORMAL) Comprehensive metabolic panel (05/02/2025 3:13 AM EDT) Only the most recent of7 resultswithin the time period is included. ComponentValueRef RangeTest MethodAnalysis TimePerformed AtPathologist Signature Kvmijg696(L)136 - 145 mmol/L1 4:00 AM [facility] Potassium3.1(L)3.5 - 5.1 mmol/L1 4:00 AM [facility] ([facility]) Lxpjwjie12(L)98 - 107 mmol/L1 4:00 AM [facility] ([facility])CO2 33(H)21 - 31 mmol/L1 4:00 AM [facility] ([facility])Anion Gzf345 - 20 mmol/L1 4:00 AM [facility] ([facility])PSJ746 - 25 mg/dL 05/02/2025 4:00 AM [facility] ([facility])Creatinine1.69(H)0.70 - 1.30 mg/dL05/02/2025 4:00 AM [facility] ([facility])BUN/Creatinine Ratio11.8 05/02/2025 4:00 AM [facility] ([facility])Wcqfias767(H)70 - 100 mg/dL 05/02/2025 4:00 AM [facility] ([facility])Calcium7.3(L)8.6 - 10.3 mg/dL 05/02/2025 4:00 AM [facility] ([facility])AST54(H)13 - 39 U/L1 4:00 AM [facility] ([facility])ALT (SGPT)129(H)7 - 52 U/L1 4:00 AM [facility] ([facility])Alkaline Rqhvqabzreg6324 - 104 U/L1 4:00 AM [facility] ([facility])Total Protein5.4(L)6.0 - 8.3 g/dL05/02/2025 4:00 AM [facility] ([facility])Albumin3.1(L)3.5 - 5.7 g/dL05/02/2025 4:00 AM [facility] ([facility])Total Bilirubin0.70.3 - 1.0 mg/dL05/02/2025 4:00 AM [facility] ([facility])eGFR43.4(L)>60.0 mL/min/1.73m* 4:00 AM [facility] ([facility])Comment:[facility]???s estimated glomerular filtration rate (eGFR) will [...] BLOOD ORDERABLES Final ResultPerforming OrganizationAddressCity/State/ZIP CodePhone Number [facility] ([facility]) [address] [place] [address] * LIMITED ECHOCARDIOGRAM (TTE) W/ LTD DOPPLER AND COLOR FLOW (04/30/2025 8:35 AM EDT)Anatomical RegionLateralityModalityOtherSpecimen (Source)Anatomical Location / LateralityCollection Method / VolumeCollection TimeReceived Time 04/30/2025 7:02 AM EDT Narrative 04/30/2025 11:22 AM EDT 1 1 [facility] Heart [facility] [address] [place] [address] [phone] (fax) Echocardiogram-[facility] Name: KRISTY DOHERTY Study Date: 04/30/2025 07:02 AM B/P: 121 mmHg/100 mmHg HR: 87 bpm Date of : 1955 Location: [facility] Height: 68 in. Age: 69 [...] with the fellow Procedure Staff Reading Group: [facility] Referring Physician: RUDY NADERER ??Extension Professor: June Brumfield RDCS, RVT, RN, BSN ??Ordering Physician: Wil Sotomayor MD Wall Motion Scores -1 - hyperkinesia, 0 - not evaluated, 1 - normal, 2 - hypokinesia, 3 - akinesia, 4 - dyskinesia Procedure Note Hay William MD - 04/30/2025 1 1 [facility] [address] [place] [address] [phone] (fax) Echocardiogram-[facility] Name: KRISTY DOHERTY Study Date: 04/30/2025 07:02 AM B/P: 121 mmHg/100 mmHg HR: 87 bpm Date of : 1955 Location: [facility] Height: 68 in. Age: 69 [...] with the fellow Procedure Staff Reading Group: [facility] Referring Physician: RUDY KING Extension Professor: June Brumfield RDCS, RVT, RN, BSN Ordering Physician: Wil Sotomayor MD Wall Motion Scores -1 - hyperkinesia, 0 - not evaluated, 1 - normal, 2 - hypokinesia, 3 - akinesia, 4 - dyskinesia Authorizing ProviderResult TypeResult StatusBlair [facility] PROCED[facility] Final Result * (ABNORMAL) Blood Gas, Venous (04/29/2025 3:38 PM EDT)ComponentValueRef Range Test MethodAnalysis TimePerformed AtPathologist SignaturepH, Ven7.43(H)7.31 - 7.411 3:56 PM [facility] RESPIRATORY THERAPYpCO2, Zku3905 - 50 mmHg 04/29/2025 3:56 PM [facility] RESPIRATORY THERAPYpO2, Wna5550 - 45 mmHg04/29/2025 3:56 PM [facility] RESPIRATORY THERAPYO2 Sat, Ven56.1(L)65.0 - 75.0 %04/29/2025 3:56 PM EDTUT RESPIRATORY THERAPYHCO3, Quadaw24.9mmol/L1 3:[address] [facility] RESPIRATORY THERAPYOxyhemoglobin, Siykgb00.6%04/29/2025 3:56 PM EDT [facility] RESPIR[facility] THERAPYpH Venous Temp Adjusted7.43(H)7.31 - 7.411 3:[address] [facility] RESPIRATORY THERAPYpCO2 Venous Temp Mbkwzgef4265 - 50 mmHg 04/29/2025 3:[address] [facility] RESPIRATORY THERAPYpO2 Venous Temp Ynxuibij1507 - 45 mmHg04/29/2025 3:[address] [facility] RESPIRATORY IWHOVJQIydojkpkriu91.0??C 04/29/2025 3:[address] [facility] RESPIRATORY THERAPYSpecimen (Source)Anatomical Location / LateralityCollection Method / VolumeCollection TimeReceived Time BloodVenous blood specimen / UnknownExisting Catheter / Vzpuswh5304/29/2025 3:38 PM EDT1 3:51 PM EDT Narrative Authorizing ProviderResult TypeResult StatusAadil Raj MURRAY BLOOD ORDERABLES Final ResultPerforming OrganizationAddressCity/State/ZIP CodePhone Number [facility] [address] [place] [address], * XR chest 1 view (04/29/2025 11:20 [...] signed: Virgilio Barillas MD. Authorizing ProviderResult TypeResult StatusAadil Raj MORALESG XR PROCEDURES Final Result * (ABNORMAL) Iron and TIBC (04/29/2025 8:14 AM EDT)ComponentValueRef RangeTest MethodAnalysis TimePerformed AtPathologist RojwrzaecEcha51(L)50 - 212 ug/dL 04/29/2025 10:43 AM [facility] ([facility])DTST378(L)250 - 450 ug/dL 04/29/2025 10:43 AM [facility] ([facility])Iron Pfxzduivjj47(L)20 - 50 % 04/29/2025 10:43 AM [facility] ([facility])IHFX762.0155.0 - 355.0 ug/dL 04/29/2025 10:43 AM [facility] ([facility])Specimen (Source)Anatomical Location / LateralityCollection Method / VolumeCollection TimeReceived Time BloodVenous blood specimen / UnknownExisting Catheter / Szmmlak6904/29/2025 8:14 AM EDT1 8:19 AM EDT Narrative Authorizing ProviderResult TypeResult StatusAajohann MURRAY BLOOD ORDERABLES Final ResultPerforming OrganizationAddressCity/State/ZIP CodePhone Number [facility] [address] [place] [address] * (ABNORMAL) Ferritin (04/29/2025 8:14 AM EDT)ComponentValueRef RangeTest Method Analysis TimePerformed AtPathologist SignatureFerritin1,265.0(H)24.0 - 336.0 ng/mL04/29/2025 11:02 AM [facility] ([facility])Specimen (Source) Anatomical Location / LateralityCollection Method / VolumeCollection Time Received TimeBloodVenous blood specimen / UnknownExisting Catheter / Unknown 04/29/2025 8:14 AM EDT1 8:19 AM EDT Narrative Authorizing ProviderResult TypeResult StatusPepe Anthony MDLAB BLOOD ORDERABLES Final ResultPerforming OrganizationAddressCity/State/ZIP CodePhone Number [facility] ([facility]) [address] [place] [address] * Ammonia (04/29/2025 2:38 AM EDT)ComponentValueRef RangeTest MethodAnalysis TimePerformed AtPathologist GnjijxlwnLlcncup5331 - 72 umol/L1 3:06 AM [facility])Specimen (Source)Anatomical Location / Laterality Collection Method / VolumeCollection TimeReceived TimeBloodVenous blood specimen / UnknownArterial Line / Ubbyjzg7304/29/2025 2:38 AM EDT1 2:44 AM EDT Narrative Authorizing ProviderResult TypeResult StatusPepe Anthony MDLAB BLOOD ORDERABLES Final ResultPerforming OrganizationAddressCity/State/ZIP CodePhone Number [facility] ([facility]) [address] [place] [address] * POCT glucose meter (04/28/2025 1:44 PM EDT) Only the most recent of4 resultswithin the time period is included. ComponentValueRef RangeTest MethodAnalysis TimePerformed AtPathologist Signature Glucose WHV1873 - 105 mg/dL04/28/2025 1:56 PM [facility] ([facility]) Comment:[id number] (Source)Anatomical Location / LateralityCollection Method / VolumeCollection TimeReceived TimeBloodCapillary blood specimen / Yohbegs4604/28/2025 1:44 PM EDT1 1:56 PM EDT Narrative [facility] ([facility]) - 04/28/2025 1:56 PM EDT Waived Testing in the ED is performed under the ED CLIA certificate #[id number]. Authorizing ProviderResult TypeResult StatusPepe Anthony MDLAB BLOOD ORDERABLES Final ResultPerforming OrganizationAddressCity/State/ZIP CodePhone Number [facility] ([facility]) [address] [place] [address] * (ABNORMAL) Arterial Blood Gases (04/28/2025 8:54 AM EDT)ComponentValueRef RangeTest MethodAnalysis TimePerformed AtPathologist SignaturepH, Arterial7.36 7.35 - 7.451 8:[address] [facility] RESPIRATORY THERAPYpCO2, Rcjfojci99(L)35 - 45 mmHg04/28/2025 8:[address] [facility] RESPIRATORY THERAPYpO2, Awnmmrru4010 - 108 mmHg04/28/2025 8:[address] [facility] RESPIRATORY THERAPYHCO3, Wssqkuss81.9(L)21.0 - 28.0 mmol/L1 8:[address] [facility] RESPIRATORY THERAPYO2 Sat, Rozxbigv58.1 94.0 - 100.0 %04/28/2025 8:[address] [facility] RESPIRATORY THERAPYBase Excess, Arterial-7.3(L)-2.0 - 3.0 mmol/L1 8:[address] [facility] RESPIRATORY THERAPY Oxyhemoglobin, Nypshfaa96.294.0 - 97.0 %04/28/2025 8:[address] [facility] RESPIRATORY IBMPGGFOjqvsvvkfuo07.0??04/28/2025 8:[address] [facility] RESPIRATORY THERAPYOxygen Device #4Ixwmgpv57/11/2025 8:[address] [facility] RESPIRATORY THERAPYLPM4.0LPM 04/28/2025 8:[address] [facility] RESPIRATORY THERAPYPF Ratio04/28/2025 8:54 AM [facility] RESPIRATORY THERAPYComment:C^IncalculableA-hMd90204/28/2025 8:[address] [facility] RESPIRATORY THERAPYComment:C^IncalculablepaO2/sDJ88104/28/2025 8:[address] [facility] RESPIRATORY THERAPYComment:C^IncalculableSpecimen (Source)Anatomical Location / LateralityCollection Method / VolumeCollection TimeReceived TimeBlood Arterial blood specimen / Wpkener7004/28/2025 8:54 AM EDT1 8:54 AM EDT Narrative Authorizing ProviderResult TypeResult StatusAadil Raj MURRAY BLOOD ORDERABLES Final ResultPerforming OrganizationAddressCity/State/ZIP CodePhone Number [facility] RESPIRATORY THERAPY [address] [place] [address], [place] * (ABNORMAL) CBC (04/28/2025 3:21 AM EDT) Only the most recent of8 resultswithin the time period is included. ComponentValueRef RangeTest MethodAnalysis TimePerformed AtPathologist Signature Auto WBC19.72(H)4.00 - 10.60 10*3/uL04/28/2025 4:06 AM [facility] ([facility])RBC2.90(L)4.20 - 5.70 10*6/uL04/28/2025 4:06 AM [facility] ([facility])Hemoglobin9.4(L)13.0 - 17.0 g/dL04/28/2025 4:06 AM [facility] ([facility])Vmqkmsfstm03.2(L)39.0 - 50.0 %04/28/2025 4:06 AM [facility] ([facility])MCV93.882.0 - 98.0 fL04/28/2025 4:06 AM [facility] ([facility])MCH 32.427.0 - 33.0 pg04/28/2025 4:06 AM [facility] ([facility])MCHC34.632.0 - 35.0 g/dL04/28/2025 4:06 AM [facility] ([facility])RDW14.311.5 - 15.0 % 04/28/2025 4:06 AM [facility] ([facility])Lucicdotc829657 - 400 10*3/uL 04/28/2025 4:06 AM [facility] ([facility])Specimen (Source)Anatomical Location / LateralityCollection Method / VolumeCollection TimeReceived TimeBlood Venous blood specimen / UnknownArterial Line / Tsytxod0904/28/2025 3:21 AM EDT 04/28/2025 3:41 AM EDT Narrative Authorizing ProviderResult TypeResult StatusAadil Raj TERRI BLOOD ORDERABLES Final ResultPerforming OrganizationAddressCity/State/ZIP CodePhone Number [facility] ([facility]) [address] [place] [address] * XR abdomen 1 view (04/28/2025 12:50 [...] Electronically signed: El Gomes. Authorizing ProviderResult TypeResult StatusAadil Raj VELA XR PROCEDURES Final Result * (ABNORMAL) Hemoglobin and hematocrit, blood (04/27/2025 7:57 PM EDT)Component ValueRef RangeTest MethodAnalysis TimePerformed AtPathologist Signature Plgvvqclcs65.6(L)13.0 - 17.0 g/dL04/27/2025 8:28 PM [facility] ([facility])Rmcytlctfm63.2(L)39.0 - 50.0 %04/27/2025 8:28 PM [facility] ([facility])Specimen (Source)Anatomical Location / LateralityCollection Method / VolumeCollection TimeReceived TimeBloodVenous blood specimen / UnknownArterial Line / Hutvxky6104/27/2025 7:57 PM EDT1 8:10 PM EDT Narrative Authorizing ProviderResult TypeResult StatusAajohann Anthony MDLAB BLOOD ORDERABLES Final ResultPerforming OrganizationAddressCity/State/ZIP CodePhone Number [facility] ([facility]) [address] [place] [address] * Co-oximetry (04/27/2025 4:25 AM EDT) Only the most recent of2 resultswithin the time period is included. ComponentValueRef RangeTest MethodAnalysis TimePerformed AtPathologist Signature Wycbiikfygfzb45.0%04/27/2025 4:[address] [facility] RESPIRATORY THERAPYTotal Hemoglobin 11.5g/dL04/27/2025 4:[address] [facility] RESPIRATORY THERAPYO2 Sat36.4%04/27/2025 4:[address] [facility] RESPIRATORY THERAPYSpecimen (Source)Anatomical Location / Laterality Collection Method / VolumeCollection TimeReceived TimeBloodMixed venous blood specimen / UnknownArterial Line / Eneyvmu1504/27/2025 4:25 AM EDT1 4:25 AM EDT Narrative Authorizing ProviderResult TypeResult StatusAajohann Anthony MDLAB BLOOD ORDERABLES Final ResultPerforming OrganizationAddressCity/State/ZIP CodePhone Number [facility] RESPIRATORY THERAPY [address] [place] [address], * Urea nitrogen, urine (04/26/2025 8:40 AM EDT)ComponentValueRef RangeTest MethodAnalysis TimePerformed AtPathologist SignatureUrea Nitrogen, He490dp/dL 04/26/2025 9:11 AM [facility] ([facility])Specimen (Source)Anatomical Location / LateralityCollection Method / VolumeCollection TimeReceived Time UrineUrine specimen obtained by clean catch procedure / UnknownNon-blood Collection / Tufccou3604/26/2025 8:40 AM EDT1 8:52 AM EDT Narrative Authorizing ProviderResult TypeResult StatusPepe Anthony MDLAB URINE ORDERABLES Final ResultPerforming OrganizationAddressCity/State/ZIP CodePhone Number [facility] ([facility]) [address] [place] [address] * Sodium, urine, random (04/26/2025 8:40 AM EDT) Only the most recent of2 resultswithin the time period is included. ComponentValueRef RangeTest MethodAnalysis TimePerformed AtPathologist Signature Sodium, Rl67eoit/L1 9:11 AM [facility] ([facility])Specimen (Source)Anatomical Location / LateralityCollection Method / VolumeCollection TimeReceived TimeUrineUrine specimen obtained by clean catch procedure / Unknown Non-blood Collection / Qeeqmfy1204/26/2025 8:40 AM EDT1 8:52 AM EDT Narrative Authorizing ProviderResult TypeResult StatusPepe Anthony MDLAB URINE ORDERABLES Final ResultPerforming OrganizationAddressCity/State/ZIP CodePhone Number [facility]) [address] [place] [address] * Creatinine, urine, random (04/26/2025 8:40 AM EDT)ComponentValueRef RangeTest MethodAnalysis TimePerformed AtPathologist SignatureCreatinine, Ur83.026 - 299 mg/dL04/26/2025 9:11 AM [facility] ([facility])Specimen (Source) Anatomical Location / LateralityCollection Method / VolumeCollection Time Received TimeUrineUrine specimen obtained by clean catch procedure / Unknown Non-blood Collection / Ilkwzqm4504/26/2025 8:40 AM EDT1 8:52 AM EDT Narrative Authorizing ProviderResult TypeResult StatusAajohann Anthony MDLAB URINE ORDERABLES Final ResultPerforming OrganizationAddressCity/State/ZIP CodePhone Number [facility]) [address] [place] [address] * (ABNORMAL) Urinalysis (04/26/2025 8:40 AM EDT)ComponentValueRef RangeTest MethodAnalysis TimePerformed AtPathologist SignatureColor, UrineLight-Yellow Colorless, Yellow, Light-Zkewwn8404/26/2025 9:27 AM [facility] ([facility])Clarity, YkcqkVomnyIhajb39/09/2025 9:27 AM [facility] ([facility])pH, Urine5.05.0 - 8.0 pH04/26/2025 9:27 AM [facility] ([facility])Leukocytes, HpzfvQvuwypmjKoubdgkt30/09/2025 9:27 AM [facility] ([facility])Nitrite, GysyqFbdmdvxmYtbafoux97/09/2025 9:27 AM [facility] ([facility])Protein, UrineNegativeNegative mg/dL04/26/2025 9:27 AM [facility] ([facility])Glucose, Hxfwg608(A)Normal mg/dL04/26/2025 9:27 AM EDT [facility] ([facility])Bilirubin, AzvmtMouqdarhYvuyzqbu36/09/2025 9:27 AM [facility] ([facility])Specific [place], Urine1.0131.010 - 1.030 04/26/2025 9:27 AM [facility] ([facility])Ketones, UrineNegativeNegative mg/dL04/26/2025 9:27 AM [facility] ([facility])Blood, UrineNegative Aqaezwdt38/09/2025 9:27 AM [facility] ([facility])Urobilinogen, Urine NormalNormal mg/dL04/26/2025 9:27 AM [facility] ([facility])Specimen (Source)Anatomical Location / LateralityCollection Method / VolumeCollection TimeReceived TimeUrineUrine specimen obtained by clean catch procedure / UnknownNon-blood Collection / Jfihpew9004/26/2025 8:40 AM EDT1 8:52 AM EDT Narrative [facility] ([facility]) - 04/26/2025 9:27 AM EDT Microscopics not performed on urines with negative chemical reactions unless requested on original order. Authorizing ProviderResult TypeResult StatusAadil Raj MURRAY URINE ORDERABLES Final ResultPerforming OrganizationAddressCity/State/ZIP CodePhone Number [facility] ([facility]) [address] [place] [address] * RIGHT HEART CATH, SWAN (FLOW DIRECTED [...] Performed: Right heart catheterization. Placement of a [employer]HB[employer]ER Zamora-Stacy catheter for hemodynamic monitoring. Access into the right internal jugular vein under ultrasound guidance. Methods: ??Procedure was explained to the patient with risks and benefits; he signed informed consent. ??he was brought to the laboratory assistant in a fasting state. The right neck area was prepped and draped in usual fashion. Micropuncture technique was used for access under ultrasound guidance into the right internal jugular vein. ??A 6-Hungarian x 11 cm sheath was placed. ?? A 6-Hungarian Carrasquillo catheter was used for right heart catheterization and measurement of pressures and calculation of cardiac output using the estimated [place] method. ??Carrasquillo catheter was removed. Over a wire to the access sheath was upsized to a 9 Hungarian introducer sheath. ??A NEIGHB[employer]SERV[employer] OFFICER Zamora-Stacy catheter was advanced with the aid of a V18 wire and the distal end of the catheter was advanced to the distal segment of the right pulmonary artery. ??The Zamora-Stacy catheter was secured in place. he tolerated [...] with biventricular failure. Successful placement of a [employer]ER Zamora-Stacy catheter to guide management of heart failure. Plan: Patient will be started on intravenous inotropic therapy. Further recommendations per inpatient Cardiology service. Hay William MD Study Details Other hypotension [I95.89], Right ventricular dysfunction [I51.9] Authorizing ProviderResult TypeResult StatusAdam Yoon CNPCV CARDIAC CATH PROCEDURESFinal Result * (ABNORMAL) Lipid panel (04/24/2025 4:07 AM EDT)ComponentValueRef RangeTest MethodAnalysis TimePerformed AtPathologist NgthacqwyTzwvcbbizlhww11<150 mg/dL 04/24/2025 2:39 PM [facility] ([facility])Comment: TRIGLYCERIDE REFERENCE RANGE: 20 YEARS AND OLDER ?CARDIOVASCULAR RISK LESS THAN 150 mg/dL ? LOW RISK 150 TO 199 mg/dL ?BORDERLINE RISK 200 mg/dL AND GREATER ? HIGH RISK Qrfwhycgepb55(L)120 - 200 mg/dL04/24/2025 2:39 PM [facility] ([facility]) LDL Kbpoxblvhe891 - 160 mg/dL04/24/2025 2:39 PM [facility] ([facility])HDL 2923 - 92 mg/dL04/24/2025 2:39 PM [facility] ([facility])Non HDL Wkmukbqxzrh2107/07/2025 2:39 PM [facility] ([facility])Total VLDL-C150 - 40 mg/dL04/24/2025 2:39 PM [facility] ([facility])Cholesterol/HDL Ratio3.4 mg/dL04/24/2025 2:39 PM [facility] ([facility])Specimen (Source)Anatomical Location / LateralityCollection Method / VolumeCollection TimeReceived Time BloodVenous blood specimen / UnknownVenipuncture / Nrfypjj0904/24/2025 4:07 AM EDT 04/24/2025 4:17 AM EDT Narrative Authorizing ProviderResult TypeResult StatusBebo MURRAY BLOOD ORDERABLES Final ResultPerforming OrganizationAddressCity/State/ZIP CodePhone Number [facility] ([facility]) [address] [place] [address] * CTA Chest W IV Contrast (04/23/2025 [...] Howie Velasquez. Authorizing ProviderResult TypeResult StatusOmar Samara VELA CT PROCEDURESFinal Result * LIMITED ECHOCARDIOGRAM (TTE) W/ LTD DOPPLER AND COLOR FLOW (04/23/2025 7:56 AM EDT)Anatomical RegionLateralityModalityOtherSpecimen (Source)Anatomical Location / LateralityCollection Method / VolumeCollection TimeReceived Time 04/23/2025 7:26 AM EDT Narrative 04/23/2025 9:27 AM EDT 1 1 [facility] Station [address] [place] [address] [phone] (fax) Echocardiogram-[facility] Name: KRISTY DOHERTY Study Date: 04/23/2025 07:26 AM B/P: 90 mmHg/74 mmHg HR: 111 bpm Date of : 1955 Location: [facility] Height: 68 in. Age: 69 [...] minimal pericardial effusion. Procedure Staff Reading Group: [facility] Referring Physician: RUDY KING ??Extension Professor: June Brumfield RDCS, RVT, RN, BSN ??Ordering Physician: FANI DENNEY ?? Wall Motion Scores -1 - hyperkinesia, 0 - not evaluated, 1 - normal, 2 - hypokinesia, 3 - akinesia, 4 - dyskinesia Procedure Note Mitesh Vernon MD - 04/23/2025 1 1 [facility] Heart Station [address] [place] [address] [phone] (fax) Echocardiogram-[facility] Name: KRISTY DOHERTY Study Date: 04/23/2025 07:26 AM B/P: 90 mmHg/74 mmHg HR: 111 bpm Date of : 1955 Location: [facility] Height: 68 in. Age: 69 [...] minimal pericardial effusion. Procedure Staff Reading Group: [facility] Referring Physician: RUDY KING Extension Professor: June Brumfield, DEAN, RVT, RN, BSN Ordering Physician: FANI DENNEY Wall Motion Scores -1 - hyperkinesia, 0 - not evaluated, 1 - normal, 2 - hypokinesia, 3 - akinesia, 4 - dyskinesia Authorizing ProviderResult TypeResult Misha Denney [facility] ECHO PROCEDURES Final Result * (ABNORMAL) C-reactive protein (04/23/2025 5:02 AM EDT) Only the most recent of2 resultswithin the time period is included. ComponentValueRef RangeTest MethodAnalysis TimePerformed AtPathologist Signature CRP39.4(H)<=5.0 mg/L1 8:57 AM EDT[facility] ([facility])Comment: Testing performed using a new methodology, turbidimetry. Normal ranges have been updated. Old normal range was <8 mg/L.Specimen (Source)Anatomical Location / LateralityCollection Method / VolumeCollection TimeReceived TimeBloodVenous blood specimen / UnknownVenipuncture / Nwoxwmg4204/23/2025 5:02 AM EDT1 5:22 AM EDT Narrative Authorizing ProviderResult TypeResult Dionne Archer [facility] BLOOD ORDERABLESFinal ResultPerforming OrganizationAddressCity/State/ZIP CodePhone Number [facility] ([facility] [address] [place] [address] * CT cervical spine wo IV contrast [...] Adam VELA CT PROCEDURES Final Result * CT head [...] Adam KLEINPurvi CT PROCEDURES Final Result * ECG 12 lead (04/23/2025 3:34 AM EDT) Only the most recent of3 resultswithin the time period is included. ComponentValueRef RangeTest MethodAnalysis TimePerformed AtPathologist Signature Ventricular Cinh543BGUFE MUSEAtrial Fzpr765LZHLS MUSEPR Obyqrhtt433paSI MUSEQRS WJWMXSDF481emAV MUSEQT Zioeaddp698uoXR MUSEQTC CALCULATION(ADALBERTO)415msGE MUSEP Ojeb82ecqbngdUJ MUSER-Gkwt48haoskamNS MUSET Wave Wbob585bqhxsjoON MUSESpecimen (Source)Anatomical Location / LateralityCollection Method / [...] 8:14:48 AM Authorizing ProviderResult TypeResult StatusZaid Eliud MDECG ORDERABLESFinal ResultPerforming OrganizationAddressCity/State/ZIP CodePhone Number [facility] * LIMITED ECHOCARDIOGRAM (TTE) W/ LTD DOPPLER AND COLOR FLOW (04/20/2025 1:51 PM EDT)Anatomical RegionLateralityModalityOtherSpecimen (Source)Anatomical Location / LateralityCollection Method / VolumeCollection TimeReceived Time 04/20/2025 1:28 PM EDT Narrative 04/20/2025 5:38 PM EDT 1 1 [facility] Heart Station [address] [place] [address] [phone] (fax) Echocardiogram-[facility] Name: KRISTY DOHERTY Study Date: 04/20/2025 01:28 PM B/P: 83 mmHg/58 mmHg HR: 96 bpm Date of : 1955 Location: [facility] Height: 68 in. Age: 69 [...] No pericardial effusion. Procedure Staff Reading Group: [facility] Referring Physician: RUDY KING ??Extension Professor: June Brumfield RDCS, RVT, RN, BSN ??Ordering Physician: VENU SAMANIEGO Wall Motion Scores -1 - hyperkinesia, 0 - not evaluated, 1 - normal, 2 - hypokinesia, 3 - akinesia, 4 - dyskinesia Procedure Note Mitesh Vernon MD - 04/20/2025 1 1 [facility] [address] [place] [address] [phone] (fax) Echocardiogram-[facility] Name: KRISTY DOHERTY Study Date: 04/20/2025 01:28 PM B/P: 83 mmHg/58 mmHg HR: 96 bpm Date of : 1955 Location: [facility] Height: 68 in. Age: 69 [...] No pericardial effusion. Procedure Staff Reading Group: [facility] Referring Physician: RUDY KING Extension Professor: June Lather, RDCS, RVT, RN, BSN Ordering Physician: VENU SAMANIEGO Wall Motion Scores -1 - hyperkinesia, 0 - not evaluated, 1 - normal, 2 - hypokinesia, 3 - akinesia, 4 - dyskinesia Authorizing ProviderResult TypeResult StatusChstalin Samaniego [facility] ECHO PROCEDURESFinal Result * Osmolality (04/20/2025 12:25 PM EDT) Only the most recent of2 resultswithin the time period is included. ComponentValueRef RangeTest MethodAnalysis TimePerformed AtPathologist Signature Qicluzxgkr960935 - 295 mOsm/kg04/20/2025 7:48 PM EDKING[facility] LABComment:Test Performed by [employer] [address] [place] [id number] - Released 04/20/2025 19:48Specimen (Source)Anatomical Location / Laterality Collection Method / VolumeCollection TimeReceived TimeBloodVenous blood specimen / UnknownVenipuncture / Jwfczmc9204/20/2025 12:25 PM EDT1 12:56 PM EDT Narrative Authorizing ProviderResult TypeResult StatusBenedict MURRAY BLOOD ORDERABLES Final ResultPerforming OrganizationAddressCity/State/ZIP CodePhone Number [facility] [address] [place] [address] * Blood culture, peripheral #2 (04/20/2025 10:09 AM EDT) Only the most recent of2 resultswithin the time period is included. ComponentValueRef RangeTest MethodAnalysis TimePerformed AtPathologist Signature Blood CultureNo growth at 5 days FLORA 04/25/2025 12:01 PM [facility] ([facility])Specimen (Source)Anatomical Location / LateralityCollection Method / VolumeCollection TimeReceived TimeBlood Venous blood specimen / UnknownVenipuncture / Wrxzlvk7304/20/2025 10:09 AM EDT 04/20/2025 12:00 PM EDT Narrative Authorizing ProviderResult TypeResult StatusBenedict MURRAY MICROBIOLOGY - GENERAL ORDERABLESFinal ResultPerforming OrganizationAddressCity/State/ZIP Code Phone Number [facility] ([facility] [address] [place] [address] * Cortisol (04/20/2025 5:15 AM EDT)ComponentValueRef RangeTest MethodAnalysis TimePerformed AtPathologist UsppwenttYipznnyv27.26 - 23 ug/dL04/20/2025 12:47 PM [facility] ([facility])Specimen (Source)Anatomical Location / LateralityCollection Method / VolumeCollection TimeReceived TimeBloodVenous blood specimen / UnknownVenipuncture / Dvgftuh2204/20/2025 5:15 AM EDT1 5:22 AM EDT Narrative Authorizing ProviderResult TypeResult StatusOmar Samara MURRAY BLOOD ORDERABLES Final ResultPerforming OrganizationAddressCity/State/ZIP CodePhone Number [facility] ([facility]) [address] [place] [address] * (ABNORMAL) B-type natriuretic peptide (04/19/2025 6:25 PM EDT)ComponentValue Ref RangeTest MethodAnalysis TimePerformed AtPathologist YhoxmjtqhNLG741(H)0 - 100 pg/mL04/19/2025 7:07 PM [facility] ([facility])Specimen (Source) Anatomical Location / LateralityCollection Method / VolumeCollection Time Received TimeBloodVenous blood specimen / UnknownVenipuncture / Unknown 04/19/2025 6:25 PM EDT1 6:36 PM EDT Narrative Authorizing ProviderResult TypeResult StatusChstalin MURRAY BLOOD ORDERABLESFinal ResultPerforming OrganizationAddressCity/State/ZIP CodePhone Number [facility] ([facility]) [address] [place] [address] * LIMITED ECHO (TTE) (04/19/2025 3:37 PM EDT)Anatomical RegionLateralityModality OtherSpecimen (Source)Anatomical Location / LateralityCollection Method / VolumeCollection TimeReceived Time04/19/2025 2:13 PM EDT Narrative 04/19/2025 4:30 PM EDT 1 1 [facility] Heart [facility] [address] [place] [address] (fax) Echocardiogram-[facility] Name: KRISTY DOHERTY Study Date: 04/19/2025 02:13 PM B/P: / HR: Date of : 1955 Location: [facility] Height: 68 in. Age: 69 year(s) Patient Room: 3183 Weight: 182 lb. Gender: Male Patient Status: InPt BSA: 1.96 m2 Indication: pericardialeffusion, h/o 35mm Watchman FLX Examination: Limited Echo Image Quality: Fair Findings Pericardium: Moderate pericardial effusion baseline. Post pericardiocentesis there is minimal pericardial effusion. Procedure Staff Reading Group: [facility] Referring Physician: RUDY KING ??Extension Professor: SAMI Starr, RDROSALIO ??Ordering Physician: VENU SAMANIEGO Procedure Note Fani Denney MD - 04/19/2025 1 1 [facility] Heart [facility] [address] [place] [address] [phone] (fax) Echocardiogram-[facility] Name: KRISTY DOHERTY Study Date: 04/19/2025 02:13 PM B/P: / HR: Date of : 1955 Location: [facility] Height: 68 in. Age: 69 year(s) Patient Room: 3183 Weight: 182 lb. Gender: Male Patient Status: InPt BSA: 1.96 m2 Indication: pericardialeffusion, h/o 35mm Watchman FLX Examination: Limited Echo Image Quality: Fair Findings Pericardium: Moderate pericardial effusion baseline. Post pericardiocentesis there is minimal pericardial effusion. Procedure Staff Reading Group: [facility] Referring Physician: RUDY KING Extension Professor: SAMI Starr, RDCS Ordering Physician: VENU SAMANIEGO Authorizing ProviderResult TypeResult StatusChristopher Samaniego [facility] ECHO PROCEDURESFinal Result * Pathology Review (04/19/2025 3:23 PM EDT)ComponentValueRef RangeTest Method Analysis TimePerformed AtPathologist SignaturePathology ReviewReviewed. . 04/20/2025 9:17 AM [facility] ([facility])Specimen (Source)Anatomical Location / LateralityCollection Method / VolumeCollection TimeReceived TimeFluid (Pericardial Fluid)Non-blood Collection / Nzrwphz0604/19/2025 3:23 PM EDT 04/19/2025 3:33 PM EDT Narrative Authorizing ProviderResult TypeResult StatusChristopher Samaniego [facility] BLOOD ORDERABLESFinal ResultPerforming OrganizationAddressCity/State/ZIP CodePhone Number [facility] ([facility]) [address] [place] [address] * Body fluid cell differential (04/19/2025 3:23 PM EDT)ComponentValueRef Range Test MethodAnalysis TimePerformed AtPathologist SignatureTotal Cells Counted for Cobbiyphmpgd92680/03/2025 9:17 AM [facility] ([facility])Neutrophils Manual, Dhdti290304/20/2025 9:17 AM [facility] ([facility])Lymphocytes Manual, Knqhv722 9:17 AM [facility] ([facility])[place]/Macrophage Manual, Fluid04/20/2025 9:17 AM [facility] ([facility])Eosinophils Manual, Fluid04/20/2025 9:17 AM [facility] ([facility])Basophils Manual, Fluid04/20/2025 9:17 AM [facility] ([facility])Mesothelial Manual, Lmixp483 9:17 AM [facility] ([facility])Other Cells, BF Manual 04/20/2025 9:17 AM [facility] ([facility])Specimen (Source)Anatomical Location / LateralityCollection Method / VolumeCollection TimeReceived Time Fluid (Pericardial Fluid)Non-blood Collection / Gaimwcu4304/19/2025 3:23 PM EDT 04/19/2025 3:33 PM EDT Narrative [facility] ([facility]) - 04/20/2025 9:17 AM EDT Differential performed on cytospin Authorizing ProviderResult TypeResult StatusChstalin MURRAY BODY FLUIDS AND STOOLS ORDERABLESFinal ResultPerforming OrganizationAddressCity/State/ZIP CodePhone Number [facility] ([facility]) [address] [place] [address] * (ABNORMAL) Body fluid cell count with differential (04/19/2025 3:23 PM EDT) ComponentValueRef RangeTest MethodAnalysis TimePerformed AtPathologist SignatureFluid Type Cell CountPericardial Fluid04/20/2025 9:17 AM [facility] ([facility])Fluid Tjhfdq798bI01/03/2025 9:17 AM [facility] ([facility])RBC, Bnbos542,940(H)0 - 1,000 RBC/uL04/20/2025 9:17 AM [facility] ([facility])Total Number of Nucleated Cells14,314TNC/uL04/20/2025 9:17 AM [facility] ([facility])Specimen (Source)Anatomical Location / LateralityCollection Method / VolumeCollection TimeReceived TimeFluid (Pericardial Fluid)Non-blood Collection / Xxakbys8304/19/2025 3:23 PM EDT 04/19/2025 3:33 PM EDT Narrative [facility] ([facility]) - 04/20/2025 9:17 AM EDT Reference [...] AND STOOLS ORDERABLESFinal ResultPerforming OrganizationAddressCity/State/ZIP CodePhone Number [facility] ([facility]) [address] [place] [address] * Anaerobic culture (04/19/2025 3:23 PM EDT)ComponentValueRef RangeTest Method Analysis TimePerformed AtPathologist SignatureAnaerobic CultureNo anaerobes isolated at day 5 FLORA 04/25/2025 10:12 AM [facility] ([facility])Specimen (Source)Anatomical Location / LateralityCollection Method / VolumeCollection TimeReceived Time 04/19/2025 3:23 PM EDT1 3:33 PM EDT Narrative Authorizing ProviderResult TypeResult StatusChristopher Laurent MURRAY MICROBIOLOGY - GENERAL ORDERABLESFinal ResultPerforming OrganizationAddress City/State/ZIP CodePhone Number [facility] ([facility]) [address] [place] [address] * Non-spout liner helper cytology - cellular exam (04/19/2025 3:23 PM EDT)ComponentValueRef RangeTest MethodAnalysis TimePerformed AtPathologist SignatureCase ReportNon- gynecologic Cytology ?Case: [id number] ? Authorizing Provider: ??Venu Samaniego MD ? Collected: ? 04/19/2025 1523 ? Ordering Location: ? [facility] ?Received: ?04/19/2025 1533 ? Pathologist: ? Halima Marr MD ? Specimen: ?Pericardial Fluid ? 04/24/2025 5:46 PM [facility] ([facility])Final DiagnosisA. Pericardial fluid: - Negative for malignancy. - Marked acute inflammation.04/24/2025 5:46 PM [facility] ([facility]) at 1746 EDTMicroscopic DescriptionSatisfactory for evaluation. Examination of the ThinPrep slide and cell block reveals rare benign mesothelial cells and abundant acute inflammation.04/24/2025 5:46 PM [facility] ([facility])Clinical InformationPericardial ptyqdssk67/07/2025 5:46 PM [facility] ([facility]) Gross Elmlhdxrcqr079 mL opaque, red fluid04/24/2025 5:[address] [facility] ([facility])Specimen (Source)Anatomical Location / LateralityCollection Method / VolumeCollection TimeReceived TimePericardial Fluid04/19/2025 3:23 PM EDT 04/19/2025 3:33 PM EDT Narrative Authorizing ProviderResult TypeResult StatusChristopher Laurent [facility] CYTOLOGY ORDERABLESFinal ResultPerforming OrganizationAddressCity/State/ZIP CodePhone Number [facility] ([facility]) [address] [place] [address] * LEFT HEART CATH, RIGHT HEART CATH, [...] Pericardial effusion [I31.39] Authorizing ProviderResult TypeResult StatusChristopher [facility] CARDIAC CATH PROCEDURESFinal Result * (ABNORMAL) POC Hb02% (04/19/2025 2:47 PM EDT) Only the most recent of2 resultswithin the time period is included. ComponentValueRef RangeTest MethodAnalysis TimePerformed AtPathologist Signature LGDAXT44%67.2(A)90 - 95 %QC Pass/FailPassedQC LOT #[id number] Expiration [...] SignatureExtra TubeHold for add-ons. 04/19/2025 4:01 PM [facility] ([facility])Comment:Auto resulted.Specimen (Source)Anatomical Location / LateralityCollection Method / VolumeCollection TimeReceived TimeBloodVenous blood specimen / UnknownVenipuncture / Unknown 04/19/2025 2:44 PM EDT1 2:55 PM EDT Narrative Authorizing ProviderResult TypeResult Ta MURRAY BLOOD ORDERABLES Final ResultPerforming OrganizationAddressCity/State/ZIP CodePhone Number [facility] ([facility]) [address] [place] [address] * COLLIN (04/19/2025 2:44 PM EDT)ComponentValueRef RangeTest MethodAnalysis Time Performed AtPathologist SignatureANA Titer<1:40<=1:4010 1:12 PM EDT [facility] ([facility])Comment:Test performed using DAVID IFA COLLIN Hep-2 Test, a pre-standardized assay designed for the qualitativeand semi- quantitative detection of antinuclear antibodies.Specimen (Source)Anatomical Location / LateralityCollection Method / VolumeCollection TimeReceived Time BloodVenous blood specimen / UnknownVenipuncture / Sokxdlh3004/19/2025 2:44 PM EDT1 2:54 PM EDT Narrative Authorizing ProviderResult TypeResult StatusChristopher Laurent MDLAB BLOOD ORDERABLESFinal ResultPerforming OrganizationAddressCity/State/ZIP CodePhone Number [facility] ([facility]) [address] [place] [address] * Lavender Top (04/19/2025 2:32 PM EDT)ComponentValueRef RangeTest Method Analysis TimePerformed AtPathologist SignatureExtra TubeHold for add-ons. 04/19/2025 4:01 PM [facility] ([facility])Comment:Auto resulted.Specimen (Source)Anatomical Location / LateralityCollection Method / VolumeCollection TimeReceived TimeBloodVenous blood specimen / UnknownVenipuncture / Unknown 04/19/2025 2:32 PM EDT1 2:55 PM EDT Narrative Authorizing ProviderResult TypeResult StatusOmar Samara MURRAY BLOOD ORDERABLES Final ResultPerforming OrganizationAddressCity/State/ZIP CodePhone Number [facility] ([facility]) [address] [place] [address] * COMPLETE ECHO (TTE) (04/19/2025 1:13 PM EDT)Anatomical RegionLaterality ModalityOtherSpecimen (Source)Anatomical Location / LateralityCollection Method / VolumeCollection TimeReceived Time04/19/2025 12:46 PM EDT Narrative 04/19/2025 1:44 PM EDT 1 1 [facility] [address] [place] [address] [phone] (fax) Echocardiogram-[facility] Name: KRISTY DOHERTY Study Date: 04/19/2025 12:46 PM B/P: 97 mmHg/71 mmHg HR: Date of : 1955 Location: [facility] Height: 68 in. Age: 69 [...] early tamponade physiology. Procedure Staff Reading Group: [facility] Extension Professor: Bryanna Cazares RDCS ??Ordering Physician: HAKAN NICOLAS ?? Procedure Note Mitesh Vernon MD - 04/19/2025 1 1 [facility] [address] [place] [address] [phone] (fax) Echocardiogram-[facility] Name: KRISTY DOHERTY Study Date: 04/19/2025 12:46 PM B/P: 97 mmHg/71 mmHg HR: Date of : 1955 Location: [facility] Height: 68 in. Age: 69 [...] early tamponade physiology. Procedure Staff Reading Group: [facility] Professor: Bryanna Cazares RDCS Ordering Physician: HAKAN NICOLAS Authorizing ProviderResult TypeResult StatusHakan Nicolas PA-[facility] ECHO PROCEDURES Final Result * High Sensitivity Troponin I (04/19/2025 12:14 PM EDT)ComponentValueRef Range Test MethodAnalysis TimePerformed AtPathologist SignatureHigh Sensitivity Troponin I7<20 ng/L1 2:02 PM [facility] ([facility])Specimen (Source)Anatomical Location / LateralityCollection Method / VolumeCollection TimeReceived TimeBloodVenous blood specimen / UnknownVenipuncture / Unknown 04/19/2025 12:14 PM EDT1 12:35 PM EDT Narrative Authorizing ProviderResult TypeResult StatusMitesh Vernon [facility] BLOOD ORDERABLESFinal ResultPerforming OrganizationAddressCity/State/ZIP CodePhone Number [facility] ([facility]) [address] [place] [address] * Sedimentation rate (04/19/2025 12:14 PM EDT)ComponentValueRef RangeTest Method Analysis TimePerformed AtPathologist SignatureSed Rate18<20 mm/hr04/19/2025 3:37 PM [facility] ([facility])Specimen (Source)Anatomical Location / LateralityCollection Method / VolumeCollection TimeReceived TimeBloodVenous blood specimen / UnknownVenipuncture / Kcamhhc3004/19/2025 12:14 PM EDT 04/19/2025 12:35 PM EDT Narrative Authorizing ProviderResult TypeResult StatusChstalin Samaniego [facility] BLOOD ORDERABLESFinal ResultPerforming OrganizationAddressCity/State/ZIP CodePhone Number [facility] ([facility]) [address] [place] [address] * Creatinine, Serum (03/26/2025 2:43 PM EDT)ComponentValueRef RangeTest Method Analysis TimePerformed AtPathologist SignatureCreatinine0.950.70 - 1.30 mg/dL 03/26/2025 4:16 PM [facility] ([facility])eGFR86.6>60.0 mL/min/1.73m*2 03/26/2025 4:16 PM [facility] ([facility])Comment:[facility]???s estimated glomerular filtration rate (eGFR) will [...] TimeBloodVenous blood specimen / Unknown Venipuncture / Nmxrpms5603/26/2025 2:43 PM EDT03/26/2025 3:44 PM EDT Narrative Authorizing ProviderResult TypeResult StatusMeltomas Gutierrez CNPLAB BLOOD ORDERABLESFinal ResultPerforming OrganizationAddressCity/State/ZIP CodePhone Number [facility] ([facility]) [address] [place] [address] from Last 3 Months Insurance Advance Directives * Full Code (Latest Code Status on File) Date ActivatedDate EqrriugxfggUjvgrwsy45/2/2025 11:51 AM05/04/2025 6:33 PM * Full Code Date ActivatedDate InactivatedComments02/06/2025 1:12 PM02/07/2025 5:23 PM * Full Code Date ActivatedDate MxczqrhygjoDqqgbnmb27/15/2022 11:10 PM07/04/2022 3:19 PM Care Teams Team MemberRelationshipSpecialtyStart DateEnd Date Rudy King MD [address] [place] [address] PCP - Stlhxuy66/16/22
--- OUTSIDE RECORDS SUMMARY | 2025-05-31 14:37 | XMS_ITS | Encounter Summary ---
Author Organization [facility] Address [address] [place] [address] Care Team Providers Care Wrapper Operator Name Role Phone Rudy Guerra MD Primary Care Provider [phone] Encounter Details DateTypeDepartmentCare Team (Latest Contact Info)Lzuhxkfgbow22/13/2025Telephone [facility] [place] [address] [place] [address] Mercedes Prado MA Social History Tobacco UseTypesPacks/DayYears UsedDateSmoking Tobacco: FormerCigarettes Smokeless Tobacco: NeverAlcohol UseStandard Drinks/JquaMlymllyuPjf37 (1 standard drink = 0.6 oz pure [...] homeless or living in a intermediate (including now)?No04/19/2025Hunger Vital SignAnswerDate RecordedWithin the past 12 months, you worried that your food would run out before you got the money to buymore.Never true04/19/2025Ran Out of Food in the Last YearNot on file04/19/2025Sex and Gender InformationValueDate RecordedSex Assigned at TkkqsJvqb49/06/2025 8:51 AM EDTLegal EsjCpxl1301/14/2022 10:53 PM EDT Gender VicnrimjSxoq88/06/2025 8:51 AM EDTSexual OrientationHeterosexual or Oiistzqq31/06/2025 8:51 AM EDTdocumented as of this encounter Plan of Treatment DateTypeDepartmentCare Team (Latest Contact Info)Ommalsakegx01/02/2025 9:00 AM ESTOffice Visit [address] [address] Bobo Raymond MD [address] [place] [address] 06/22/2025 10:00 AM ESTOffice Visit [facility] [address] [place] [address] Hay William MD [address] [facility] [address] [facility] [place] [address] documented as of this encounter Visit Diagnoses Not on filedocumented in this encounter Care Teams Team MemberRelationshipSpecialtyStart DateEnd Date Rudy Guerra MD [address] [place] [address] PCP - Jedfkow36/16/22documented as of this encounter
--- OUTSIDE RECORDS SUMMARY | 2025-05-31 14:38 | XMS_ITS | CCD ---
Author Organization [facility]iniSy[facility] Care Team Providers Care Manager [employer] Name Role Phone JUDY, DR ESCALANTE Attending [...] Unavailable NADERER, DR RUDY Simpson Consulting Unavailable AUSTIN, FROY Consulting Unavailable MONCADA, SOBEIDA Consulting Unavailable [...] Bernstein Consulting Unavailable JASONKAE VICKERS Attending Unavailable KAE GOMEZ Admitting Unavailable JASONKAE VICKERS Consulting Unavailable DAVID IROS Attending Unavailable DAVID RIOS Admitting Unavailable ASIF COLVIN Consulting Unavailable NADERER, DR RUDY Simpson Primary Care Unavailable DAVID RIOS Consulting Unavailable MOUKARBEL, DR ESCALANTE Consulting Unavailable MOUKARBEL, DR ESCALANTE Attending Unavailable MOUKARBEL, DR ESCALANTE Admitting Unavailable NADERER, DR RUDY Simpson Primary Care Unavailable AICHHOLZ, RN FLIGHT APOORVA Admitting Unavailable AICHHOLZ, RN FLIGHT APOORVA Consulting Unavailable AICHHOLZ, RN FLIGHT APOORVA Attending Unavailable NADERER, DR RUDY Simpson Primary Care Unavailable BONNIE RODRIGUES Consulting Unavailable NADERER, DR RUDY Simpson Primary Care Unavailable BARAZI, MILDRED Admitting Unavailable MILDRED LOGAN Consulting Unavailable MILDRED LOGAN Attending Unavailable FERNANDO, DR RUDY Simpson Primary Care Unavailable BROOKSTON, DR ASIF Davila Consulting Unavailable SHAIKH MEDRANO H Attending Unavailable FAURSULA, H Admitting Unavailable FAURSULA, H Consulting Unavailable Kristy Beatty Attending Unavailable Kristy Beatty Admitting Unavailable Rudy King MD Primary Care Provider [phone] RUDY KING Attending Unavailable MARIAH LANGE Attending Unavailable Froy Avila MD Attending Provider Provider, Outside Attending Provider Unavailable Rudy King MD Primary Care Provider [phone] Riky BROWN-CElliott Attending Provider Rudy King MD Attending Provider [phone] Rudy King MD Primary Care Provider Rudy King MD Primary Care Provider Froy Avila MD Attending Provider [phone] Provider, Outside Attending Provider Unavailable Rudy King MD Primary Care Provider [phone] Elliott Manuel Attending Provider Rudy King MD Attending Provider [phone] Celina Garner MD Attending Provider [phone] RISA CASTILLO Referring Unavailable MARIA ISABEL, HAKAN Referring Unavailable MARIA ISABEL, HAKAN Referring Unavailable SAULO, PAULO Joseph Referring Unavailable ARMIN, CHUCK Referring Unavailable LINETTE, PEDRO Referring Unavailable ROCÍO, BEBA Referring Unavailable JUDY BORIS Attending Unavailable JUDY BORIS Admitting Unavailable MESERET WELLS Admitting Unavailable RAFA PRESLEY Attending Unavailable FROY AVILA Referring Unavailable BORIS WILLIAM Referring Unavailable GABRIEL, DAVID Referring Unavailable ARMIN, CHUCK Referring Unavailable GABRIEL DAVID Referring Unavailable GABRIEL, DAVID Referring Unavailable GABRIEL, DAVID Referring Unavailable ROCÍO, BEBA Referring Unavailable ROCÍO, BEBA Referring Unavailable ROCÍO, BEBA Referring Unavailable GABRIEL, DAVID Referring Unavailable GABRIEL, DAVID Referring Unavailable GABRIEL, DAVID Referring Unavailable GABRIEL, DAVID Referring Unavailable LINETTE, PEDRO Referring Unavailable LINETTE, PEDRO Referring Unavailable ADEN, CHRISTOPHER Referring Unavailable ADEN, HUMBERTOOPHER Referring Unavailable NEMO, HEMANT Referring Unavailable GABRIEL, DAVID Referring Unavailable GABRIEL, DAVID Referring Unavailable MOUKARBEL, BORIS Attending Unavailable GABRIEL, DAVID Referring Unavailable MOUKARBEL, BORIS Attending Unavailable GABRIEL, DAVID Referring Unavailable MOUKARBEL, BORIS Attending Unavailable ARMIN, CHUCK Attending Unavailable RIKY, ELLIOTT Attending Unavailable GABRIEL, DAVID Referring Unavailable GABRIEL, DAVID Referring Unavailable GABRIEL, DAVID Referring Unavailable HORANI, RAFA Referring Unavailable GABRIEL, DAVID Referring Unavailable KACEY, ALEKSANDR Referring Unavailable LAURA, SAMAR Referring Unavailable HORANI, RAFA Referring Unavailable ARMIN, CHUCK Referring Unavailable Allergies Allergy ClassificationReported Allergen(s)Allergy TypeDate of OnsetReaction(s) Facility (1 source)OCTACOSANOL; Translations: [OCTACOSANOL]Propensity to adverse reactions to drug (disorder)83-42-1898QbcxwotoifMemorial [facility] Medications Current Medications MedicationDrug Class(es)DatesSig (Normalized)Sig (Original)acetaminophen 500 mg oral tablet (2 sources)Start: 05-07-9902ipjr 1 tablet by mouth every six hours as needed Acetaminophen (Tylenol Extra Strength) 500 mg tablet Active 500 MG PO Every 6 hours as needed May 15, 2025 11:00pm Complies with drug [id number] 200 actuat albuterol 0.09 mg/actuat metered dose inhaler (13 sources)beta2-Adrenergic AgonistStart: 59-57-4414tipp 1 puff(s) by inhalation every four hours as neededAlbuterol Sulfate 90 mcg/actuation HFA aerosol inhaler Active 2 PUFF INHALATION Every 4 hours as needed April 19, 2025 11:00pm Complies with drug therapyStart: 27-59-5510Oqxdswpqe Sulfate 90 mcg/actuation HFA aerosol inhaler Active 2 PUFF INHALATION Six times daily as n eeded for shortness of breath or wheezing 8.5 3 April 16, 2025 11:00pm Complies with drug therapyStart: 98-42-8504zspv 2 puff(s) by inhalation every four hours for wheezingalbuterol HFA 90 mcg/act inhaler Indications: Mild persistent asthma without complication (HCC) Inhale 2 puffs every 4 (four) hours if needed for wheezing 8.5 g 1 01/16/2025 ActiveStart: 03-99-4556ropo 2 puff(s) by mouth every four hours as needed for wheezingalbuterol HFA 90 mcg/act inhaler Indications: Mild persistent asthma without complication (CMS/HCC)INHALE 2 (TWO) PUFFS BY MOUTH EVERY FOUR HOURS NEEDED FOR FOR WHEEZING 8.5 g 1 11/14/2024 ActiveStart: 65-93-4485txqc 2 puff(s) by mouth every four hours as needed for wheezingalbuterol HFA 90 mcg/act inhaler Indications: Mild persistent asthma without complication (CMS/HCC)INHALE 2 PUFFS BY MOUTH EVERY 4 HOURS NEEDED FOR WHEEZING 8.5 g 1 06/19/2024 Activeallopurinol 300 mg oral tablet (11 sources)Xanthine Oxidase InhibitorStart: 01-31-0716bnic 1 tablet by mouth once dailyAllopurinol 300 mg tablet Active 300 MG PO Daily April 19, 2025 11:00pm Complies with drug therapyStart: 70-35-2582ntzb 1 tablet by mouth once dailyallopurinol (Zyloprim) 300 MG tablet Indications: Gout, unspecified cause, unspecified chronicity, unspecified site TAKE 1 TABLET BY MOUTH DAILY 270 tablet 11/29/2024 ActiveStart: 11-01-2023 End: 46-78-0884nijh 1 tablet by mouth once dailyallopurinol (Zyloprim) 300 MG tablet Indications: Gastroesophageal reflux disease without esophagitis Take 1 tablet (300 mg) by mouth 1 (one) time each day at the same time 30 tablet 11 11/01/2023 10/31/2024 Activeaspirin 81 mg oral tablet (2 sources)Platelet Aggregation Inhibitor, Nonsteroidal Anti-inflammatory Drug Start: 80-38-9625sozy 1 tablet by mouth once dailyAspirin 81 mg tablet Active 81 MG PO Daily May 15, 2025 11:00pm Complies with drug therapyatorvastatin 40 mg oral tablet (12 sources)HMG-CoA Reductase InhibitorStart: 29-85-9707irao 1 tablet by mouth once dailyAtorvastatin 40 mg tablet Active 40 MG PO Daily April 19, 2025 11:00pm Complies with drug therapyclopidogrel 75 mg oral tablet (2 sources)P2Y12 Platelet InhibitorStart: 95-21-4335kdas 1 tablet by mouth once dailyClopidogrel 75 mg tablet Active 75 MG PO Daily May 15, 2025 11:00pm Complies with drug therapycolchicine 0.6 mg oral tablet (2 sources)Start: 67-10-5345dmmy 1 mg by mouth once dailyColchicine 0.6 mg tablet Active MG PO Daily May 15, 2025 11:00pm Complies with drug therapy dapagliflozin 10 mg oral tablet (12 sources)Sodium-Glucose Cotransporter 2 InhibitorStart: 97-72-9045vunk 1 tablet by mouth once dailyDapagliflozin Propanediol (Farxiga) 10 mg tablet Active 10 MG PO Daily April 19, 2025 11:00pm Complies with drug therapy2 ml dupilumab 150 mg/ml auto-injector (12 sources)Interleukin-4 Receptor alpha AntagonistStart: 12-33-3286qtnytd 300 mg by subcutaneous injection every other weekDupilumab (Dupixent Pen) 300 mg/2 mL pen injector Active 300 MG SUBCUT EVERY 2 WEEKS April 19, 2025 11:00pm Complies with drug therapyStart: 17-66-1776Xrhhgsna 300 MG/2ML injection Inject 300 mg under the skin every 14 (fourteen) days 10/08/2022 Activefluticasone propionate 0.05 mg/actuat metered dose nasal spray (14 sources)CorticosteroidStart: 65-09-9893Ezqzrarhixy Propionate 50 mcg/actuation spray,suspension Active 1 SPRAY INTRANASAL Twice daily May 23, 2025 1:10pm Complies with drug therapyStart: 05-16-2025 End: 44-98-4560Pwzfmndglvk Propionate 50 mcg/actuation spray,suspension Discontinued INTRANASAL May 151:00pm May 23, 2025 1:12pm Start: 04-20-2025 End: 84-67-4840vwom 1 spray(s) nasal route once dailyFluticasone Furoate 27.5 mcg/actuation spray,suspension Discontinued 1 SPRAY INTRANASAL Daily April 19, 2025 11:00pm May 16, 2025 8:38am into each nostrilStart: 01-02-2025 take 1 spray(s) nasal route once dailyfluticasone (Flonase) 50 MCG/ACT nasal spray Indications: Mild persistent asthma without complication (HCC) instill 1 spray IN EACH NOSTRIL DAILY 16 g 1 01/02/2025 ActiveStart: 65-62-6742pjye 1 spray(s) nasal route once dailyfluticasone (Flonase) 50 MCG/ACT nasal spray Indications: Mild persistent asthma without complication (CMS/HCC) instill 1 spray IN EACH NOSTRIL DAILY. shake gently, before first use, prime pump and af ter use clean tip and replace cap 16 g 1 09/04/2024 ActiveStart: 66-96-4619lmtv 1 spray(s) nasal route once dailyfluticasone (Flonase) 50 MCG/ACT nasal spray Indications: Mild persistent asthma without complication (CMS/HCC) instill 1 spray IN EACH NOSTRIL DAILY. shake gently, before first use, prime pump and af ter use clean tip and replace cap 16 g 1 06/26/2024 ActiveFluticasone Propion-Salmeterol (13 sources)Corticosteroid, beta2-Adrenergic AgonistStart: 21-32-1516Vdwmwjlrmns Propion-Salmeterol (Advair Diskus) 500-50 mcg/dose blister with device Active 1 INH INHALATION Twice daily May 15, 2025 11:00pm Complies with drug therapyStart: 31-93-3637Wfehlamugqx Propion-Salmeterol (Advair Diskus) 500-50 mcg/dose blister with device Active 1 INH INHALATION Twice daily May 16, 2025 12:00am Complies with drug therapyStart: 04-20-2025 End: 72-77-0489Brpwhclspjq Propion-Salmeterol 500-50 mcg/dose blister with device Discontinued 1 INH INHALATION Twice daily April 19, 2025 11:00pm May 16, 2025 8:38amStart: 04-20-2025 End: 97-99-1531Umvjyluquvy Propion-Salmeterol 500-50 mcg/dose blister with device Discontinued 1 INH INHALATION Twice daily April 20, 2025 12:00am May 16, 2025 9:38amStart: 06-12-2024 End: 87-89-7135vwry 1 puff(s) by inhalation in the morningFluticasone-Salmeterol 500-50 MCG/ACT aerosol powder Indications: Mild persistent asthma without com plication (HCC) Inhale 1 puff in the morning and 1 puff before bedtime. 60 each 3 10/17/2024 10/17/2025 Activefurosemide 20 mg oral tablet (3 sources)Loop DiureticStart: 29-46-3932nito 2 tablets by mouth once daily Furosemide 20 mg tablet Active 40 MG PO Daily May 23, 2025 1:10pm Complies with drug therapyStart: 05-16-2025 End: 36-66-0474xsbd 1 tablet by mouth once dailyFurosemide 20 mg tablet Discontinued 20 MG PO Daily May 15, 2025 11:00pm May 23, 2025 1:12pm 24 hr metoprolol succinate 25 mg extended release oral tablet (13 sources)beta-Adrenergic BlockerStart: 12-59-0912voaw 2 tablets by mouth once dailyMetoprolol Succinate 25 mg tablet extended release 24 hr Active 12.5 MG PO daily May 232:00am Complies with drug therapyStart: 06-29-2023 End: 33-28-6297ylox 1 tablet by mouth once dailyMetoprolol Succinate 50 mg tablet extended release 24 hr Discontinued 50 MG PO Daily April 19, 2025 11:00pm May 23, 2025 1:12pmStart: 89-93-3707ewmb 1 tablet by mouth every twenty-four hours in the morningmetoprolol succinate XL (Toprol-XL) 50 MG 24 hr tablet Take 50 mg by mouth in the morning. 06/29/2023 Activespironolactone 25 mg oral tablet (12 sources)Aldosterone AntagonistStart: 46-21-2263gusi 1 tablet by mouth once dailySpironolactone 25 mg tablet Active 25 MG PO Daily April 19, 2025 11:00pm Complies with drug therapy Completed/Discontinued Medications MedicationDrug Class(es)DatesSig (Normalized)Sig (Original)apixaban 5 mg oral tablet (11 sources)Factor Xa InhibitorStart: 04-20-2025 End: 08-90-0617gebr 1 tablet by mouth twice dailyApixaban (Eliquis) 5 mg tablet Discontinued 5 MG PO Twice daily April 19, 2025 11:00pm May 16, 2025 8:36amStart: 14-92-7244hohi 1 tablet by mouth in the morningEliquis 5 MG tablet Take 5 mg by mouth in the morning and 5 mg before bedtime. 12/14/2023 Active sacubitril 49 mg / valsartan 51 mg oral tablet (12 sources)Angiotensin 2 Receptor BlockerStart: 04-20-2025 End: 34-83-3476gvjf 1 tablet by mouth twice dailySacubitril-Valsartan 49-51 mg tablet Discontinued 1 TAB PO Twice daily April 19, 2025 11:00pm May 16, 2025 8:39amStart: 24-71-3799bugp 1 tablet by mouth in the morningsacubitril- valsartan (Entresto) 49-51 MG tablet Take 1 tablet by mouth in the morning and 1 tablet in the evening. 02/19/2023 Active Problems Active Problems Problem ClassificationProblemDateDocumented DateEpisodic/ChronicAcute and unspecified renal failure (2 sources)Acute renal failure syndrome; Translations: [Acute kidney failure, unspecified]80-60-4293ZvpgvfvtNhywbz (16 sources)Mild persistent asthma, uncomplicated; Translations: [Unspecified asthma, uncomplicated]Onset: 111570-24-7505WwlpawuErltfb of prostate (12 sources)Malignant tumor of prostate; Translations: [Malignant neoplasm of prostate]Onset: 114532-97-1651RuxepdwRotlqcm dysrhythmias (20 sources)Atrial fibrillation; Translations: [Unspecified atrial fibrillation] Onset: 964913-03-9724DepwljnGtjifje kidney disease (2 sources)Chronic kidney disease stage 3A ; Translations: [Stage 3a chronic kidney disease]48-92-1175WoscxsiYktcrrdkaknf of device; implant or graft (2 sources)Other specified complication of vascular prosthetic devices, implants and grafts, sequela; Translations: [Other specified complication of vascular prosthetic devices, implants and grafts, sequela]Onset: 96-33-6947Sizwfmam Conduction disorders (20 sources)Presence of automatic (implantable) cardiac defibrillator; Translations: [Automatic implantable cardiac defibrillator in situ]Onset: 88-38-5863PstenqpFkwusbsdjo heart failure; nonhypertensive (20 sources)Chronic systolic (congestive) heart failure; Translations: [Acute on chronic systolic (congestive) heart failure]Onset: 07-02-2022 Resolved: 34-31-3568EimuvfsWsfnhnvy atherosclerosis and other heart disease (20 sources)Coronary arteriosclerosis; Translations: [Atherosclerotic heart disease of [place] coronary artery without angina pectoris]Onset: 07-06-2022 02-84-6357JnugjsoLpeebzpmcw and other anemia (2 sources)Anemia; Translations: [Anemia, unspecified]28-27-1270LpqkzbkgTrpdozhh mellitus without complication (15 sources)Prediabetes; Translations: [Prediabetes]Onset: EpisodicDigestive congenital anomalies (1 source)Other specified congenital malformations of intestine; Translations: [OTH SPEC CONGEN MALFORM INTESTINE]Onset: 48-65-1499DashfttEnyihboel of lipid metabolism (20 sources)Mixed hyperlipidemia; Translations: [Hyperlipidemia, unspecified] Onset: 717323-16-6649SsuslpeKmrskrcyl hypertension (20 sources)Benign essential hypertension; Translations: [Essential (primary) hypertension]Onset: 05-27-2011 Resolved: 705819-76-4361ZkozgmsRrtql and electrolyte disorders (5 sources)Hypokalemia; Translations: [Hyponatremia]Onset: EpisodicGout and other crystal arthropathies (2 sources)Gout; Translations: [Gout, unspecified]99-61-7385WfmzoyxDqlorjmx; including migraine (3 sources)Headache; including migraine; Translations: [HEADACHE UNSPECIFIED] Onset: 34-16-6737Rnfdx valve disorders (1 source)Combined rheumatic disorders of mitral, aortic and tricuspid valves; Translations: [COMB RHEUMAT D/O MITRL AORTC TRICSP]Onset: 11-58-4378Elgwsau Hypertension with complications and secondary hypertension (3 sources)Hypertensive heart disease with heart failure; Translations: [HTN HEART DISEASE W/HEART FAIL]Onset: 42-94-8727QkcvwtiMjsvfry and fatigue (2 sources)Weakness; Translations: [Weakness]Onset: 37-78-0682TodyypwjJxqr disorders (13 sources)Major depressive disorder, single episode, unspecified; Translations: [Depressive disorder]Onset: 906170-16-8987SxyemnmSammugcwjkl chest pain (2 sources)Chest pain, unspecified; Translations: [Chest pain, unspecified] Onset: 21-73-5521SeremtxrItcswmhpeco deficiencies (13 sources)Vitamin D deficiency, unspecified; Translations: [Vitamin D deficiency]Onset: 309914-67-8755ZfxxvtyUlrlr and ill-defined heart disease (2 sources)Heart disease, unspecified; Translations: [Heart disease, unspecified]Onset: 98-28-4062ZooswwyKzefh circulatory disease (2 sources)Presence of other cardiac implants and grafts; Translations: [Presence of other cardiac implants and grafts]Onset: 33-76-9563LqanvboBvhso circulatory disease (2 sources)Hemorrhage, not elsewhere classified; Translations: [Hemorrhage, not elsewhere classified]Onset: 41-31-6972IrboiavdKwxko liver diseases (12 sources)Steatosis of liver; Translations: [Fatty (change of) liver, not elsewhere classified]Onset: 135012-39-5599WmkycauGxzxl non-traumatic joint disorders (4 sources)Effusion, left knee; Translations: [EFFUSION LEFT KNEE]Onset: 58-80-6025IujozopmWnnqe nutritional; endocrine; and metabolic disorders (1 source)Obesity, unspecified; Translations: [OBESITY UNSPECIFIED]Onset: 79-30-8129OypirbiOngku nutritional; endocrine; and metabolic disorders (1 source)Body mass index (BMI) 30.0-30.9, adult; Translations: [BODY MASS INDEX BMI 30.0-30.9 ADULT]Onset: 35-21-5426QdtnpoiXyxww upper respiratory disease (12 sources)Allergic rhinitis due to pollen; Translations: [Allergic rhinitis due to pollen]Onset: 623683-84-0644YhckepjDlhvy upper respiratory disease (12 sources)Seasonal allergic rhinitis; Translations: [Other seasonal allergic rhinitis]Onset: 125744-49-5413IimwpreQabdu upper respiratory disease (10 sources)Chronic rhinitis; Translations: [Chronic rhinitis]Onset: 03-02-2023 Resolved: 689942-45-4724AnjixkfHespy upper respiratory disease (14 sources)Polyp of nasal cavity and/or nasal sinus; Translations: [Nasal polyp, unspecified]Onset: 054138-80-2393WphxcxufKyuxm upper respiratory infections (12 sources)Chronic pansinusitis; Translations: [Chronic pansinusitis]Onset: 889784-53-8727JvkflwmLggc-; endo-; and myocarditis; cardiomyopathy (except that caused by tuberculosis or sexually transmitted disease) (18 sources)Cardiomyopathy; Translations: [Other cardiomyopathies]Onset: 777696-25-6432OjyugmrGvlz-; endo-; and myocarditis; cardiomyopathy (except that caused by tuberculosis or sexually transmitted disease) (4 sources)Pericardial effusion; Translations: [Pericardial effusion]05-16-2025 EpisodicResidual codes; unclassified (2 sources)Other specified postprocedural states; Translations: [Other specified postprocedural states]Onset: 51-49-8372BetgpjcgAquzxzgnrc arthritis and related disease (1 source)Inflammatory polyarthropathy; Translations: [Inflammatory polyarthropathy]Onset: 05-82-8822FbnizynJisrpdgfsmtp (1 source)CONTACT W/AND (SUSP) EXPOS COVID-19; Translations: [CONTACT W/AND (SUSP) EXPOS COVID-19]Onset: 08-63-3340Mritrgectnxw (1 source)Other pericardial effusion (noninflammatory); Translations: [Other pericardial effusion (noninflammatory)]Onset: 04-19-2025 Past or Other Problems Problem ClassificationProblemDateDocumented DateEpisodic/ChronicCancer of prostate (11 sources)Personal history of malignant neoplasm of prostate; Translations: [History of malignant neoplasm ofprostate]Onset: 07-03-2022 Resolved: 468880-75-5018TsxjfcgvM Codes: Struck by; against (1 source)Striking against or struck by other objects, initial encounter; Translations: [STRIKING AGNST/STRUCK OTH OBJ INIT]Onset: 76-20-1332Hxtsynib Immunizations and screening for infectious disease (1 source)Encounter for immunization; Translations: [ENCOUNTER FOR IMMUNIZATION] Onset: 11-78-2856AwmkjhjdXywsw aftercare (1 source)Other long term care administrator (current) drug therapy; Translations: [OTH CORRECTION CURRENT DRUG THERAPY]Onset: 24-56-3849SiejxdyhDpopj connective tissue disease (4 sources)Pain in left foot; Translations: [PAIN IN LEFT FOOT]Onset: 08-18-2022 EpisodicOther injuries and conditions due to external causes (1 source)Unspecified injury of head, initial encounter; Translations: [UNSPECIFIED INJURY HEAD INITIAL ENC]Onset: 36-14-9012LylaogfqRurcn nutritional; endocrine; and metabolic disorders (10 sources)Hypomagnesemia; Translations: [Hypomagnesemia]Onset: 07-03-2022 Resolved: 062020-59-5333JqustsoWymzl screening for suspected conditions (not mental disorders or infectious disease) (4 sources)Encounter for screening for malignant neoplasm of colon; Translations: [ENC SCREEN MALIG NEOPLASM COLON]Onset: 30-30-5841Zqyxlyas Screening and history of mental health and substance abuse codes (1 source)Personal history of nicotine dependence; Translations: [PERSONAL HISTORY OF NICOTINE DEPEND]Onset: 81-49-3017ZvbcooqcJtoprxy (11 sources)Syncope and collapse; Translations: [Syncope and collapse]Onset: 07-02-2022 Resolved: 670914-58-4858FgidqmqwWakmaczvcinr (1 source)Other pericardial effusion (noninflammatory); Translations: [Other pericardial effusion (noninflammatory)]Onset: 04-19-2025 Results Test NameValueInterpretationReference HlnloLaqtlyls93yo 06-91-188218Nyovd to Dr Wilcox office patient is scheduled 05/23/2025 at 1:20NormalUniversRegional Medical CenterOrders Onlyon 86-91-2728Fidwej OnlyNormalUniversity of [facility] Herm[facility] Katy HospitalGlomerular filtration rate (GFR) estimation in non- AmericanOrdered By: Elliott Nettles on 43-91-1984PJZ/1.73 sq M.predicted among non- blacks MDRD (S/P/Bld) [Vol rate/Area]43 mL/min/{1.73_m2}Low>=60 mL/min/1.73m 2 [facility] HospitalLaboratory - Chemistry and Chemistry - challengeOrdered By: Elliott Nettles on 00-82-0018Krapjuh [Mass/Vol]9.8 mg/dL 8.5-10.1FGenesis HospitalChloride [Moles/Vol]102 mmol/L98-107 [facility] HospitalCO2 [Moles/Vol]26.3 mmol/L21.0-32.0[facility] HospitalCreatinine [Mass/Vol]1.60 mg/dLHigh0.70-1.30[facility] HospitalGFR/1.73 sq M.predicted MDRD (S/P/Bld) [Vol rate/Area]52 mL/min/{1.73_m2}Low>=60 mL/min/1.73m 2FGenesis HospitalGlucose [Mass/Vol]99 mg/zI19-032OuovunilyDelaware County HospitalNatriuretic peptide B (Bld) [Mass/Vol]3631.0 pg/mLCritically high<=900.0[facility] HospitalComment on above:RESULTS CALLED TO ZAIDA Mayorgaassium [Moles/Vol]4.9 mmol/L3.5-5.1FKettering Health Behavioral Medical Centerodium [Moles/Vol]139 mmol/L 136-145[facility] HospitalUrea nitrogen [Mass/Vol]41.0 mg/dLHigh 7.0-18.0[facility] HospitalUrea nitrogen/Creatinine [Mass ratio] 25.6 mg/mgTrinity Health System West Campuserum or plasma anion gap determinationOrdered By: Elliott Nettles on 95-23-8441Bqumc gap [Moles/Vol]15.6 mmol/LFGenesis Hospital36on 66-97-121802VmhclkCtiprismjn of [facility] Katy HospitalBasophils Auto (Bld) [#/Vol]Ordered By: Outside Provider on 39-14-3918Zjkreieuj (Bld) [#/Vol]0.0 10 3/uL0.0-0.1FGenesis HospitalBasophils/100 WBC Auto (Bld)Ordered By: Outside Provider on 05-07-2025 Basophils/100 WBC (Bld)0.3 %0.2-2.0[facility] Eosinophils/100 WBC Auto (Bld)Ordered By: Outside Provider on 05-07-2025 Eosinophils/100 WBC (Bld)1.2 %0.9-7.0[facility] Erythrocyte distribution width Auto (RBC) [Ratio]Ordered By: Outside Provider on 06-93-0469Ukdlxqexzym distribution width (RBC) [Ratio]14.5 %11.0-15.0[facility] HospitalGlomerular filtration rate (GFR) estimation in non- AmericanOrdered By: Outside Provider on 33-78-5686QHX/1.73 sq M.predicted among non-blacks MDRD (S/P/Bld) [Vol rate/Area]44 mL/min/{1.73_m2} Low>=60 mL/min/1.73m 2FGenesis HospitalHematocrit Auto (Bld) [Volume fraction]Ordered By: Outside Provider on 47-86-7532Bggbbvucpt (Bld) [Volume fraction]33.4 %Low42.0-54.0[facility] HospitalHemoglobin [Mass/volume] in BloodOrdered By: Outside Provider on 57-61-6561Rvrkwmlwmn (Bld) [Mass/Vol]11.3 g/dLLow14.0-18.0[facility] HospitalLaboratory - Chemistry and Chemistry - challengeOrdered By: Outside Provider on 05-07-2025 Calcium [Mass/Vol]9.0 mg/dL8.5-10.1FGenesis HospitalChloride [Moles/Vol]100 mmol/I58-682LowndmzbjDelaware County HospitalCO2 [Moles/Vol]25.3 mmol/L21.0-32.0[facility] HospitalCreatinine [Mass/Vol]1.57 mg/dL High0.70-1.30Del[facility] HospitalGFR/1.73 sq M.predicted MDRD (S/P/Bld) [Vol rate/Area]53 mL/min/{1.73_m2}Low>=60 mL/min/1.73m [address] [place], [place] [address]Glucose [Mass/Vol]98 mg/uK07-779KydkymurtDelaware County HospitalPotassium [Moles/Vol]4.2 mmol/L3.5-5.1FKettering Health Behavioral Medical Centerodium [Moles/Vol]136 mmol/T585-714PgvlpqupyDelaware County HospitalUrea nitrogen [Mass/Vol]31.0 mg/dLHigh7.0-18.0[facility] HospitalUrea nitrogen/Creatinine [Mass ratio]19.7 mg/mgDelaware County Hospital Laboratory - Hematology and Cell countsOrdered By: Outside Provider on 62-30-3545Ojlucubb granulocytes/100 WBC (Bld)0.3 %0.0-0.5FGenesis HospitalLeukocytes [#/volume] corrected for nucleated erythrocytes in Blood by Automated counOrdered By: Outside Provider on 89-97-2539DTI corrected for nucl RBC Auto (Bld) [#/Vol]6.6 10 3/uL4.0-11.0[facility] HospitalLymphocytes Auto (Bld) [#/Vol]Ordered By: Outside Provider on 05-07-2025 Lymphocytes (Bld) [#/Vol]1.9 10 3/uL1.2-3.8[facility] Lymphocytes/100 WBC Auto (Bld)Ordered By: Outside Provider on 05-07-2025 Lymphocytes/100 WBC (Bld)28.5 %20.5-60.0[facility]H Auto (RBC) [Entitic mass]Ordered By: Outside Provider on 41-44-8210WND (RBC) [Entitic mass]31.4 pg25.9-34.0[facility] [facility] HospitalMCHC Auto (RBC) [Mass/Vol]Ordered By: Outside Provider on 12-95-4988KKMN (RBC) [Mass/Vol]33.8 g/dL29.9-35.2FGenesis HospitalMCV Auto (RBC) [Entitic vol] Ordered By: Outside Provider on 73-28-7043QAM (RBC) [Entitic vol]92.8 fL 80.0-94.0[facility] HospitalMonocytes Auto (Bld) [#/Vol]Ordered By: Outside Provider on 35-15-3142Fjimtfdbx (Bld) [#/Vol]0.9 10 3/uLHigh0.3-0.8 [facility] HospitalMonocytes/100 WBC Auto (Bld)Ordered By: Outside Provider on 26-18-1462Gopxgknik/100 WBC (Bld)13.9 %High1.7-12.0[facility] HospitalNeutrophils Auto (Bld) [#/Vol]Ordered By: Outside Provider on 66-65-9547Zrhwygzhslx (Bld) [#/Vol]3.7 10 3/uL1.4-6.5FGenesis HospitalNeutrophils/100 WBC Auto (Bld)Ordered By: Outside Provider on 30-28-8189Gfrnkhmdddy/100 WBC (Bld)55.8 %43.0-75.0[facility] HospitalNo Panel InformationOrdered By: Outside Provider on 05-07-2025 Eosinophils # (Auto)0.1 10 3/uL0.0-0.7FGenesis HospitalImmature Granulocyte # (Auto)0.02 10 3/uL0.00-0.03[facility] HospitalOrders Onlyon 45-70-2713Imluzj OnlyNormalUniversity of Memorial Hermann Katy HospitalPlatelet mean volume Auto (Bld) [Entitic vol]Ordered By: Outside Provider on 05-07-2025 Platelet mean volume (Bld) [Entitic vol]10.5 fL9.5-13.5FGenesis HospitalPlatelets Auto (Bld) [#/Vol]Ordered By: Outside Provider on 83-93-1175Orjkdpjmo (Bld) [#/Vol]320 10 3/yA282-734OsfcwwiilDelaware County HospitalRBC Auto (Bld) [#/Vol]Ordered By: Outside Provider on 26-89-0912BGU (Bld) [#/Vol]3.60 10 6/uLLow4.70-6.10[facility] System West Campuserum or plasma anion gap determinationOrdered By: Outside Provider on 38-59-1337Fgqxy gap [Moles/Vol]14.9 mmol/LFGenesis HospitalTelephoneon 05-07-2025 TelephoneNormalUniversRegional Medical CenterBASIC METABOLIC PANELon 72-30-7669Hhulp gap [Moles/Vol]15 mmol/LNormal7-20UnMemorial Health System Selby General HospitalComment on above:Performed By: #### [id number] ####[facility] ([facility])[address] [place], [place] [address]Jdrzpkn [Mass/Vol]7.3 mg/dLLow8.6-10.3 [facility] HealthComment on above:Performed By: #### [id number] ####[facility] ([facility])[address] [place], [place] [address]Hxbcqadm [Moles/Vol]94 mmol/CMpp59-811FzsidqzehmMemorial Health System Selby General HospitalComment on above:Performed By: #### [id number] ####[facility] ([facility])[address] [place], [place] [address]IL7 [Moles/Vol]23 mmol/CTmlhpa25-94TxdpuyxdrsMemorial Health System Selby General HospitalComment on above:Performed By: #### [id number] ####[facility] ([facility])[address] [place], [place] [address]Zzwktaremf [Mass/Vol]1.58 mg/dLHigh 0.70-1.30UnMemorial Health System Selby General HospitalComment on above:Performed By: #### [id number] ####[facility] ([facility])[address] [place], [place] [address]EIOREAQJXH FILTRATION RATE ML/MIN/1.73 SQ M.LXTUXQNKR70.1 mL/min/1.73m*2Low>60.0UnMemorial Health System Selby General HospitalComment on above:Result Comment: [facility]???s estimated glomerular filtration rate (eGFR) will [...] group of individuals. Performed By: #### [id number] ####[facility] ([facility])[address] [place] [address]Eqpgwrz [Mass/Vol]81 mg/yVZjkovz19-552FrkxoahnmiMemorial Health System Selby General HospitalComment on above:Performed By: #### [id number] ####[facility] ([facility])[address] [place] [address]Vvcytfhcc [Moles/Vol]3.7 mmol/LNormal 3.5-5.1UnMemorial Health System Selby General HospitalComment on above:Performed By: #### [id number] ####[facility] ([facility])[address] [place] [address]Klhhgf [Moles/Vol]128 mmol/AAzz714-466GzuzrijhhbMemorial Health System Selby General HospitalComment on above:Performed By: #### [id number] ####[facility] ([facility])[address] [place] [address]Ybho nitrogen [Mass/Vol]25 mg/dLNormal7-25UnMemorial Health System Selby General HospitalComment on above:Performed By: #### [id number] ####[facility] ([facility])[address] [place] [address]QYFE NITROGEN/CREATININE (MASS RATIO) IN SER/PLAS15.8NormalUniversRegional Medical CenterComment on above: Performed By: #### [id number] ####[facility] ([facility])[address] [place] [address]DEA WITH AUTO DIFFERENTIALon 71-34-7658Qroqaesrd (Bld) [#/Vol]0.01 10*3/uLNormal0.00-0.20UnMemorial Health System Selby General HospitalComment on above: Performed By: #### [id number] ####[facility] ([facility])[address] [place] [address]Tnabcoyne/100 WBC (Bld)0.2 %Normal0.0-1.0UnMemorial Health System Selby General HospitalComment on above:Performed By: #### [id number] ####[facility] ([facility])[address] [place], [place] [address]Anfpjvmjvcc (Bld) [#/Vol]0.03 10*3/uL Normal0.00-0.50UnMemorial Health System Selby General HospitalComment on above:Performed By: #### [id number] ####[facility] ([facility])[address] [place] [address] Eosinophils/100 WBC (Bld)0.5 %Normal0.0-6.0UnMemorial Health System Selby General Hospital Comment on above:Performed By: #### [id number] ####[facility] ([facility])[address] [place], [place] [address]Zombwnxexdj distribution width (RBC) [Ratio]14.7 % Geuulj71.5-15.0UnMemorial Health System Selby General HospitalComment on above:Performed By: #### [id number] ####[facility] ([facility])[address] [place] [address] ERYTHROCYTE MEAN CORPUSCULAR HEMOGLOBIN CONCENTRATION (G/DL) BY UQRBJLVGM76.6 g/bZAuutbu35.0-35.0UnMemorial Health System Selby General HospitalComment on above:Performed By: #### [id number] ####[facility] ([facility])[address] [place], [place] [address]Yjwhalvkhl (Bld) [Volume fraction]28.3 %Low39.0-50.0UnMemorial Health System Selby General HospitalComment on above:Performed By: #### [id number] ####[facility] ([facility])[address] [place], [place] [address]Irsauaniux (Bld) [Mass/Vol]9.8 g/dLLow 13.0-17.0UnMemorial Health System Selby General HospitalComment on above:Performed By: #### [id number] ####[facility] ([facility])[address] [place], [place] [address]Nxqibjus granulocytes (Bld) [#/Vol]0.03 10*3/uLNormal0.00-0.20UnMemorial Health System Selby General HospitalComment on above:Performed By: #### [id number] ####[facility] ([facility])[address] [place], [place] [address]Uuacbjmw granulocytes/100 WBC (Bld)0.5 %Normal0.0-1.0UnMemorial Health System Selby General HospitalComment on above:Performed By: #### [id number] ####[facility] ([facility])[address] [place] [address] Lymphocytes (Bld) [#/Vol]0.86 10*3/uLLow1.20-4.00UnMemorial Health System Selby General HospitalComment on above:Performed By: #### [id number] ####[facility] ([facility])[address] [place] [address]Kjcwofaqayi/100 WBC (Bld)14.2 %Low 20.0-45.0UnMemorial Health System Selby General HospitalComment on above:Performed By: #### [id number] ####[facility] ([facility])[address] [place], [place] [address]UQU (RBC) [Entitic mass]31.6 lpWjiviy50.0-33.0UnMemorial Health System [facility] General Hospital Comment on above:Performed By: #### [id number] ####[facility] ([facility])[address] [place], [place] [address]JQO (RBC) [Entitic vol]91.3 bWYtmrpm47.0-98.0 [facility] HealthComment on above:Performed By: #### [id number] ####[facility] ([facility])[address] [place] [facility] [address]Eecfrjyua (Bld) [#/Vol]0.86 10*3/uLNormal0.10-1.00UnMemorial Health System Selby General HospitalComment on above:Performed By: #### [id number] ####[facility] ([facility])[address] [facility] [address]Abecklpzk/100 WBC (Bld)14.2 %High5.0-12.0UnMemorial Health System Selby General HospitalComment on above:Performed By: #### [id number] ####[facility] ([facility])[address] [place] [address]Sjmwtoqijbr (Bld) [#/Vol]4.25 10*3/uL Normal1.60-7.60UnMemorial Health System Selby General HospitalComment on above:Performed By: #### [id number] ####[facility] ([facility])[address] [place] [address] Neutrophils/100 WBC (Bld)70.4 %Yftbqt11.0-72.0UnMemorial Health System Selby General HospitalComment on above:Performed By: #### [id number] ####[facility] ([facility])[address] [place] [address]GMYY (PER 100 WBCS) BY AUTOMATED COUNT 0.0 %Xnqjuv0ZwitsbzlmvMemorial Health System Selby General HospitalComment on above:Performed By: #### [id number] ####[facility] ([facility])[address] [place] [address] PLATELETS (10*3/UL) IN BLOOD AUTOMATED [id number] 10*3/fFObkfwe116-645ZlmlrfkaosMemorial Health System Selby General HospitalComment on above:Performed By: #### [id number] ####[facility] ([facility])[address] [place] [address]IEM (Bld) [#/Vol]3.10 10*6/uLLow4.20-5.70UnMemorial Health System Selby General HospitalComment on above:Performed By: #### [id number] ####[facility] ([facility])[address] [place] [address]SEM (Bld) [#/Vol]6.04 10*3/uLNormal4.00-10.60UnMemorial Health System Selby General HospitalComment on above:Performed By: #### [id number] ####[facility] ([facility])[address] [place] [address]NKJSIVZwl 36-01-2571AYFAGAZRzuamm [facility]cy HealthDSon 15-84-9048QNDfzhhxHgcvrnihuh of [place] Medical CenterMAGNESIUMon 91-41-5889Wcvqpsnqx [Mass/Vol]2.0 mg/dLNormal1.9-2.7 [facility] HealthComment on above:Performed By: #### [id number] ####[facility] ([facility])[address] [place], [place] [address]FPKCAFMLjl 94-80-2824XJHCJFXXQggigpYjumgdudjv of [place] Medical CenterNURSNOTENormShelby Memorial HospitalOrders Onlyon 87-17-8070Wrcsjs OnlyNormal [facility] HealthPHOSPHORUSon 87-43-8243Tfeeyqwjl [Mass/Vol] 3.1 mg/dLNormal2.5-5.0UnMemorial Health System Selby General HospitalComment on above: Performed By: #### [id number] ####[facility] ([facility])[address] [place] [address]cc 02-54-532820RtvfahIswxjgejat of [place] [facility] Itjmuk38 NormalUnMemorial Health System Selby General HospitalBASIC METABOLIC PANELon 79-55-7459Habbg gap [Moles/Vol]14 mmol/LNormal7-20UnMemorial Health System Selby General HospitalComment on above:Performed By: #### [id number] ####[facility] ([facility])[address] [place], [place] [address]Vtkqpxl [Mass/Vol]7.3 mg/dLLow8.6-10.3UnMemorial Health System Selby General HospitalComment on above:Performed By: #### [id number] ####[facility] ([facility])[address] [place], [place] [address]Gamodqgy [Moles/Vol]94 mmol/JTkl53-269 [facility] HealthComment on above:Performed By: #### [id number] ####[facility] ([facility])[address] [place], [place] [address]RP9 [Moles/Vol] 25 mmol/QLwmycg72-95XinrtguzlrMemorial Health System Selby General HospitalComment on above: Performed By: #### [id number] ####[facility] ([facility])[address] [place] [address]Wrbjsjoayq [Mass/Vol]1.75 mg/dLHigh0.70-1.30UnMemorial Health System Selby General HospitalComment on above:Performed By: #### [id number] ####[facility] ([facility])[address] [place] [address]SFRVCCXNHN FILTRATION RATE ML/MIN/1.73 SQ M.MRDPRXDVN56.6 mL/min/1.73m*2Low>60.0UnMemorial Health System [facility] Hospital Comment on above:Result Comment: [facility]???s estimated glomerular filtration rate (eGFR) will [...] anyone group of individuals.Performed By: #### [id number] ####[facility] ([facility])[address] [place] [address]Neucnsq [Mass/Vol]89 mg/qEYzqfdt65-490DbxterebabMemorial Health System Selby General HospitalComment on above:Performed By: #### [id number] ####[facility] ([facility])[address] [place] [address]Hvvhvojky [Moles/Vol]4.1 mmol/LNormal3.5-5.1UnMemorial Health System Selby General HospitalComment on above:Performed By: #### [id number] ####[facility] ([facility])[address] [address]Bqxpyw [Moles/Vol]129 mmol/LLow 136-145UnMemorial Health System Selby General HospitalComment on above:Performed By: #### [id number] ####[facility] ([facility])[address] [place] [address]Kssq nitrogen [Mass/Vol]24 mg/dLNormal7-25UnMemorial Health System Selby General HospitalComment on above:Performed By: #### [id number] ####[facility] ([facility])[address] [place], [place] [address]UEJQ NITROGEN/CREATININE (MASS RATIO) IN SER/PLAS13.7Normal [facility] HealthComment on above:Performed By: #### [id number] ####[facility] ([facility])[address] [place], [place] [address]PMTE FLUID CULTUREon 90-33-4188Quobxgxumae [Susc]<=0.5SusceptibleUnMemorial Health System Selby General HospitalComment on above:Order Comment: Rare Growth Skin FloraPerformed By: #### [id number] ####[facility] ([facility])[address] [place] [address] Oxacillin [Susc]<=0.25SusceptibleUnMemorial Health System Selby General HospitalComment on above:Order Comment: Rare Growth Skin FloraPerformed By: #### [id number] ####[facility] ([facility])[address] [place], [place] [address]Omcsbtvzogrp [Susc]<=0.5 SusceptibleUnMemorial Health System Selby General HospitalComment on above:Order Comment: Rare Growth Skin FloraPerformed By: #### [id number] ####[facility] ([facility])[address] [place], [place] [address]Kteqtuupee [Susc]<=0.5Susceptible [facility] HealthComment on above:Order Comment: Rare Growth Skin FloraPerformed By: #### [id number] ####[facility] ([facility])[address] [place], [place] [address]KJT WITH AUTO DIFFERENTIALon 77-85-7507Vnrbjnsbi (Bld) [#/Vol]0.01 10*3/uLNormal0.00-0.20UnMemorial Health System Selby General HospitalComment on above:Performed By: #### [id number] ####[facility] ([facility])[address] [place], [place] [address]Zmqswggbf/100 WBC (Bld)0.2 %Normal0.0-1.0UnMemorial Health System Selby General HospitalComment on above:Performed By: #### [id number] ####[facility] ([facility])[address] [place], [place] [address]Xdqykhejcrs (Bld) [#/Vol]0.05 10*3/uL Normal0.00-0.50UnMemorial Health System Selby General HospitalComment on above:Performed By: #### [id number] ####[facility] ([facility])[address] [place] [address] Eosinophils/100 WBC (Bld)0.8 %Normal0.0-6.0UnMemorial Health System [facility] Hospital Comment on above:Performed By: #### [id number] ####[facility] ([facility])[address] [place], [place] [address]Utblaqytoaz distribution width (RBC) [Ratio]14.9 % Wjidxe14.5-15.0UnMemorial Health System Selby General HospitalComment on above:Performed By: #### [id number] ####[facility] ([facility])[address] [place] [address] ERYTHROCYTE MEAN CORPUSCULAR HEMOGLOBIN CONCENTRATION (G/DL) BY GEZDJCRHL26.6 g/rFWiizcl17.0-35.0UnMemorial Health System Selby General HospitalComment on above:Performed By: #### [id number] ####[facility] ([facility])[address] [place], [place] [address]Epwrtsskqj (Bld) [Volume fraction]27.4 %Low39.0-50.0UnMemorial Health System Selby General HospitalComment on above:Performed By: #### [id number] ####[facility] ([facility])[address] [place], [place] [address]Oquljxnlmz (Bld) [Mass/Vol]9.2 g/dLLow 13.0-17.0UnMemorial Health System Selby General HospitalComment on above:Performed By: #### [id number] ####[facility] ([facility] [place], [place] [address]Hpzugzrd granulocytes (Bld) [#/Vol]0.07 10*3/uLNormal0.00-0.20UnMemorial Health System Selby General HospitalComment on above:Performed By: #### [id number] ####[facility] ([facility])[address] [place] [address]Dlzbrggz granulocytes/100 WBC (Bld)1.1 %High0.0-1.0UnMemorial Health System Selby General HospitalComment on above:Performed By: #### [id number] ####[facility] ([facility])[address] [place] [address] Lymphocytes (Bld) [#/Vol]0.98 10*3/uLLow1.20-4.00UnMemorial Health System Selby General HospitalComment on above:Performed By: #### [id number] ####[facility] ([facility])[address] [place], [place] [address]Pckmfcifwpq/100 WBC (Bld)15.8 %Low 20.0-45.0UnMemorial Health System Selby General HospitalComment on above:Performed By: #### [id number] ####[facility] ([facility])[address] [place], [place] [address]KMU (RBC) [Entitic mass]31.2 ozUvhkug30.0-33.0UnMemorial Health System [facility] Hospital Comment on above:Performed By: #### [id number] ####[facility] ([facility])[address] [place], [place] [address]KAK (RBC) [Entitic vol]92.9 aUKbejlz84.0-98.0 [facility] HealthComment on above:Performed By: #### [id number] ####[facility] ([facility])[address] [facility], [place] [address]Htibxzyor (Bld) [#/Vol]1.00 10*3/uLNormal0.10-1.00UnMemorial Health System Selby General HospitalComment on above:Performed By: #### [id number] ####[facility] ([facility])[address] [place], [place] [address]Jriqtqsio/100 WBC (Bld)16.1 %High5.0-12.0UnMemorial Health System Selby General HospitalComment on above:Performed By: #### [id number] ####[facility] ([facility])[address] [place], [place] [address]Rzsubsdzhmn (Bld) [#/Vol]4.11 10*3/uL Normal1.60-7.60UnMemorial Health System Selby General HospitalComment on above:Performed By: #### [id number] ####[facility] ([facility])[address] [place] [address] Neutrophils/100 WBC (Bld)66.0 %Qjztuk38.0-72.0UnMemorial Health System Selby General HospitalComment on above:Performed By: #### [id number] ####[facility] ([facility])[address] [place], [place] [address]UVEH (PER 100 WBCS) BY AUTOMATED COUNT 0.0 %Ooxnju0RqlkxcfhhvMemorial Health System Selby General HospitalComment on above:Performed By: #### [id number] ####[facility] ([facility])[address] [place] [address] PLATELETS (10*3/UL) IN BLOOD AUTOMATED [id number] 10*3/wMBaudnz055-462ZceskktdbdMemorial Health System Selby General HospitalComment on above:Performed By: #### [id number] ####[facility] ([facility])[address] [place], [place] [address]CTI (Bld) [#/Vol]2.95 10*6/uLLow4.20-5.70UnMemorial Health System Selby General HospitalComment on above:Performed By: #### [id number] ####[facility] ([facility])[address] [place], [place] [address]KHP (Bld) [#/Vol]6.22 10*3/uLNormal4.00-10.60UnMemorial Health System Selby General HospitalComment on above:Performed By: #### [id number] ####[facility] ([facility])[address] [place], [place] [address]IOYXLIZYgc 93-03-1137VFLJJDVWIlebwvSamaritan North Health CenterNURSNOTENormalUniversity OhioHealthNURSNOTENormalUniversity OhioHealthPHOSPHORUSon 05-03-2025 Magnesium [Mass/Vol]1.8 mg/dLLow1.9-2.7UnMemorial Health System [facility] Comment on above:Performed By: #### [id number] ####[facility] ([facility])[address] [place], [place] [address]Gwnathtqb By: #### [id number] ####[facility] ([facility])[address] [place] [address]60dx 56-52-094553Dxs patient is Moderately Stable - Low risk of patient condition declining or worsening The patient's goals for the shift include comfort, rest The clinical goals for the shift include stable labsNormalUniversity of [facility]30The patient is Moderately Unstable - Medium risk of patient condition declining or worsening The patient's goals for the shift include comfort, rest The clinical goals for the shift include stable labsNormalUniversity of Memorial Hermann Katy HospitalCBC WITH AUTO DIFFERENTIALon [id number] (Bld) [#/Vol]0.01 10*3/uLNormal0.00-0.20UnMemorial [facility] Sel[facility] HospitalComment on above: Performed By: #### [id number] ####[facility] (BEAKER)[address] [place], [place] [address]Vuubwrama/100 WBC (Bld)0.2 %Normal0.0-1.0UnMemorial Health System Selby General HospitalComment on above:Performed By: #### [id number] ####[facility] ([facility])[address] [facility] [place] [address]Vmxxvchfvoi (Bld) [#/Vol]0.02 10*3/uL Normal0.00-0.50UnMemorial [facility] System Sel[facility] General HospitalComment on above:Performed By: #### [id number] ####[facility] ([facility]AKER)[address] [place] [address] Eosinophils/100 WBC (Bld)0.3 %Normal0.0-6.0UnMemorial [facility] General Hospital Comment on above:Performed By: #### [id number] ####[facility] ([facility])[address] [place], [place] [address]Wdqlbjjywso distribution width (RBC) [Ratio]15.1 % High11.5-15.0UnMemorial Health System Sel[facility] General HospitalComment on above:Performed By: #### [id number] ####[facility] ([facility])[address] [place] [address] ERYTHROCYTE MEAN CORPUSCULAR HEMOGLOBIN CONCENTRATION (G/DL) BY JEMYSFNZN08.1 g/pXHlzsuc18.0-35.0UnMemorial [facility] System Sel[facility] General HospitalComment on above:Performed By: #### [id number] ####[facility] LAB ([facility])[address] [place], [place] [address]Usnsciyjrg (Bld) [Volume fraction]24.6 %Low39.0-50.0UnMemorial Health System Selby General HospitalComment on above:Performed By: #### [id number] ####[facility] LAB ([facility])[address] [place], [place] [address]Yqdkzvistc (Bld) [Mass/Vol]8.4 g/dLLow 13.0-17.0UnMemorial Health System Selby General HospitalComment on above:Performed By: #### [id number] ####[facility] LAB ([facility])[address] [place], [place] [address]Xrxwfynl granulocytes (Bld) [#/Vol]0.05 10*3/uLNormal0.00-0.20UnMemorial Health System Selby General HospitalComment on above:Performed By: #### [id number] ####[facility] ([facility] [place], [place] [address]Bsmhqezc granulocytes/100 WBC (Bld)0.8 %Normal0.0-1.0UnMemorial Health System Selby General HospitalComment on above:Performed By: #### [id number] ####[facility] ([facility] [place] [address] Lymphocytes (Bld) [#/Vol]0.95 10*3/uLLow1.20-4.00UnMemorial Health System Selby General HospitalComment on above:Performed By: #### [id number] ####[facility] LAB (BEAKER)[address] [place] [address]Kipqrfmomlh/100 WBC (Bld)16.0 %Low 20.0-45.0UnMemorial Health System Selby General HospitalComment on above:Performed By: #### [id number] ####[facility] LAB (BEAKER)[address] [place] [address]XIE (RBC) [Entitic mass]31.9 nzQuupcp59.0-33.0UnMemorial [facility] Hospital Comment on above:Performed By: #### [id number] ####[facility] LAB (BEAKER)[address] [place], [place] [address]WWG (RBC) [Entitic vol]93.5 fPXtiycb04.0-98.0 [facility] HealthComment on above:Performed By: #### [id number] ####[facility] LAB (BEAKER)[address] [place], [place] [address]Fheebjegw (Bld) [#/Vol]0.93 10*3/uLNormal0.10-1.00UnMemorial Health System Selby General HospitalComment on above:Performed By: #### [id number] ####[facility] LAB (BEAKER)[address] [place], [place] [address]Qncyrmxgy/100 WBC (Bld)15.7 %High5.0-12.0UnMemorial Health System Selby General HospitalComment on above:Performed By: #### [id number] ####[facility] LAB (BEAKER)[address] [place], [place] [address]Naluoeqwzdf (Bld) [#/Vol]3.98 10*3/uL Normal1.60-7.60UnMemorial Health System Selby General HospitalComment on above:Performed By: #### [id number] ####[facility] LAB (BEAKER)[address] [place] [address] Neutrophils/100 WBC (Bld)67.0 %Aauzcf05.0-72.0UnMemorial Health System Selby General HospitalComment on above:Performed By: #### [id number] ####[facility] LAB ([facility])[address] [place] [address]VZLO (PER 100 WBCS) BY AUTOMATED COUNT 0.3 %Islg0JqykounsioMemorial Health System Selby General HospitalComment on above:Performed By: #### [id number] ####[facility] LAB ([facility])[address] [place] [address] PLATELETS (10*3/UL) IN BLOOD AUTOMATED GRMED793 10*3/eEMcxbwm281-451HdlaaqifjtMemorial Health System Selby General HospitalComment on above:Performed By: #### [id number] ####[facility] LAB ([facility])[address] [place] [address]FVM (Bld) [#/Vol]2.63 10*6/uLLow4.20-5.70UnMemorial Health System Selby General HospitalComment on above:Performed By: #### [id number] ####[facility] LAB ([facility])[address] [place], [place] [address]KYS (Bld) [#/Vol]5.94 10*3/uLNormal4.00-10.60UnMemorial Health System Sel[facility] General HospitalComment on above:Performed By: #### [id number] ####[facility] LAB ([facility])[address] [place], [place] [address]LVNPSOHUALATS METABOLIC PANELon 47-94-6252Sdbixla [Mass/Vol]3.1 g/dLLow3.5-5.7UnMemorial Health System Selby General HospitalComment on above:Performed By: #### [id number] ####[facility] LAB ([facility])[address] [place], [place] [address]CFD [Catalytic activity/Vol]60 U/L Jjfepm31-709HswgugsyodMemorial Health System Selby General HospitalComment on above:Performed By: #### [id number] ####[facility] LAB ([facility])[address] [place], [place] [address]VWM [Catalytic activity/Vol]129 U/LHigh7-52UnMem[facility] Comment on above:Performed By: #### [id number] ####[facility] LAB ([facility])[address] [place], [place] [address]Atvyw gap [Moles/Vol]10 mmol/LNormal7-20UnMemorial Health System Selby General HospitalComment on above:Performed By: #### [id number] ####[facility] LAB ([facility])[address] [place], [place] [address]JXQ [Catalytic activity/Vol]54 U/WUwir98-78MaegtvesdoMemorial Health System Selby General HospitalComment on above: Performed By: #### [id number] ####[facility] LAB ([facility])[address] [place], [place] [address]Nsidmwwxr [Mass/Vol]0.7 mg/dLNormal0.3-1.0UnMemorial Health System Selby General HospitalComment on above:Performed By: #### [id number] ####[facility] LAB ([facility])[address] [place], [place] [address]Wmgqgut [Mass/Vol]7.3 mg/dLLow8.6-10.3 [facility] HealthComment on above:Performed By: #### [id number] ####[facility] LAB ([facility])[address] [place], [place] [address]Dlnwzrrt [Moles/Vol]93 mmol/YYja99-737NblhctrmspMemorial Health System Selby General HospitalComment on above:Performed By: #### [id number] ####[facility] LAB ([facility])[address] [place], [place] [address]YY6 [Moles/Vol]33 mmol/PUnge96-82IpvdockwhwMemorial Health System Selby General HospitalComment on above:Performed By: #### [id number] ####[facility] LAB ([facility])[address] [place], [place] [address]Oezpusprut [Mass/Vol]1.69 mg/dLHigh 0.70-1.30UnMemorial Health System Selby General HospitalComment on above:Performed By: #### [id number] ####[facility] LAB ([facility])[address] [place], [place] [address]FUKWQTORWW FILTRATION RATE ML/MIN/1.73 SQ M.ABOZAIGUZ32.4 mL/min/1.73m*2Low>60.0UnMemorial Health System Selby General HospitalComment on above:Result Comment: [facility]???s estimated glomerular filtration rate (eGFR) will [...] group of individuals. Performed By: #### [id number] ####[facility] LAB ([facility])[address] [place], [place] [address]Asokkdl [Mass/Vol]105 mg/mQSptl70-562QkdalnikikMemorial Health System Selby General HospitalComment on above:Performed By: #### [id number] ####[facility] LAB ([facility])[address] [place], [place] [address]Saqwcyact [Moles/Vol]3.1 mmol/LLow 3.5-5.1UnMemorial Health System Selby General HospitalComment on above:Performed By: #### [id number] ####[facility] LAB ([facility])[address] [place], [place] [address]Tahubsb [Mass/Vol]5.4 g/dLLow6.0-8.3UnMemorial Health System Selby General HospitalComment on above: Performed By: #### [id number] ####[facility] LAB ([facility])[address] [place], [place] [address]Bfpbak [Moles/Vol]133 mmol/QKka697-031MgdyrbheenMemorial Health System Selby General HospitalComment on above:Performed By: #### [id number] ####[facility] LAB ([facility])[address] [place], [place] [address]Lqcm nitrogen [Mass/Vol]20 mg/dLNormal 7-25UnMemorial Health System Selby General HospitalComment on above:Performed By: #### [id number] ####[facility] LAB ([facility])[address] [place] [address]QTKM NITROGEN/CREATININE (MASS RATIO) IN SER/PLAS11.8NormalUniversRegional Medical CenterComment on above:Performed By: #### [id number] ####[facility] LAB ([facility])[address] [place] [address]IQPXZIMJRxy 92-61-8058Vwwdtwtif [Mass/Vol]1.8 mg/dLLow1.9-2.7UnMemorial Health System Sel[facility] General HospitalComment on above:Performed By: #### [id number] ####[facility] LAB ([facility])[address] [place] [place] [address]ZLACBYRWUHwh 51-17-0352Jmvhbpxod [Mass/Vol]2.5 mg/dLNormal 2.5-5.0UnMemorial Health System Selby General HospitalComment on above:Performed By: #### [id number] ####[facility] LAB ([facility])[address] [place] [address] [id number] patient is Moderately Unstable - Medium risk of patient condition declining or worsening The patient's goals for the shift include Comfort, rest The clinical goals for the shift include VSSNormalUniversRegional Medical CenterBASIC METABOLIC PANELon 89-68-5321Birdd gap [Moles/Vol]9 mmol/LNormal7-20 [facility] HealthComment on above:Performed By: #### [id number] ####[facility] LAB ([facility])[address] [place] [address]Uyojmyg [Mass/Vol]7.7 mg/dLLow8.6-10.3UnMemorial Health System Selby General HospitalComment on above:Performed By: #### [id number] ####[facility] LAB ([facility])[address] [place] [address]Rifsjnoy [Moles/Vol]96 mmol/BYxu22-236IbsrdzkxdlMemorial Health System Selby General HospitalComment on above:Performed By: #### [id number] ####[facility] LAB ([facility])[address] [place] [address]PN3 [Moles/Vol]35 mmol/UNpfd31-08 [facility] HealthComment on above:Performed By: #### [id number] ####[facility] LAB ([facility])[address] [place] [address]Zmnkqajvzj [Mass/Vol]1.01 mg/dLNormal0.70-1.30UnMemorial Health System Selby General HospitalComment on above:Performed By: #### [id number] ####[facility] LAB ([facility])[address] [place], [place] [address]BHGNYOLZPD FILTRATION RATE ML/MIN/1.73 SQ M.IBOLCMEWZ12.5 mL/min/1.73m*2Normal>60.0UnMemorial Health System Selby General HospitalComment on above: Result Comment: The [facility]???s estimated glomerular filtration rate (eGFR) will [...] anyone group of individuals.Performed By: #### [id number] ####[facility] LAB ([facility])[address] [place], [place] [address]Ekhbgwx [Mass/Vol]99 mg/dAEwifvk41-068SfxycbewxyMemorial Health System Selby General HospitalComment on above:Performed By: #### [id number] ####[facility] LAB ([facility])[address] [place], [place] [address]Ngsvnhvhl [Moles/Vol]3.9 mmol/LNormal3.5-5.1UnMemorial Health System Selby General HospitalComment on above:Performed By: #### [id number] ####[facility] LAB ([facility])[address] [place] [address] Sodium [Moles/Vol]136 mmol/GRlmmgi776-126EebxmnjyonMemorial Health System Selby General Hospital Comment on above:Performed By: #### [id number] ####[facility] LAB (BEAKER)[address] [place], [place] [address]Krnj nitrogen [Mass/Vol]11 mg/dLNormal7-25 [facility] HealthComment on above:Performed By: #### [id number] ####[facility] LAB (BEAKER)[address] [place], [place] [address]WUQI NITROGEN/CREATININE (MASS RATIO) IN SER/PLAS10.9NormalUniversRegional Medical CenterComment on above:Performed By: #### [id number] ####[facility] LAB (BEAKER)[address] [place], [place] [address]Ctyvv gap [Moles/Vol]11 mmol/LNormal 7-20UnMemorial Health System Selby General HospitalComment on above:Performed By: #### [id number] ####[facility] LAB (BEAKER)[address] [place], [place] [address]Vjsadvb [Mass/Vol]7.8 mg/dLLow8.6-10.3UnMemorial Health System Selby General HospitalComment on above:Performed By: #### [id number] ####[facility] LAB (BEAKER)[address] [place], [place] [address]Ctgmdbsr [Moles/Vol]94 mmol/JByr48-424OpojcpxfdgMemorial Health System Selby General HospitalComment on above:Performed By: #### [id number] ####[facility] LAB (BEAKER)[address] [place], [place] [address]OH1 [Moles/Vol]35 mmol/IXbzs54-80 [facility] HealthComment on above:Performed By: #### [id number] ####[facility] LAB (BEAKER)[address] [place], [place] [address]Xjdkskkqws [Mass/Vol]1.21 mg/dLNormal0.70-1.30UnMemorial Health System Selby General HospitalComment on above:Performed By: #### [id number] ####[facility] LAB (BEAKER)[address] [place], [place] [address]UNLKGYWORU FILTRATION RATE ML/MIN/1.73 SQ M.XQDGVKVEC23.8 mL/min/1.73m*2Normal>60.0UnMemorial Health System Selby General HospitalComment on above: Result Comment: The [facility]???s estimated glomerular filtration rate (eGFR) will [...] anyone group of individuals.Performed By: #### [id number] ####[facility] LAB ([facility])[address] [place], [place] [address]Wlrsxsu [Mass/Vol]113 mg/dFIedz84-581BqhchnqgxuMemorial Health System Selby General HospitalComment on above:Performed By: #### [id number] ####[facility] LAB ([facility])[address] [place], [place] [address]Zuakvycbs [Moles/Vol]3.8 mmol/L Normal3.5-5.1UnMemorial Health System Selby General HospitalComment on above:Performed By: #### [id number] ####[facility] LAB ([facility])[address] [place] [address] Sodium [Moles/Vol]136 mmol/IDccddt834-530NquupovbsiMemorial Health System Selby General Hospital Comment on above:Performed By: #### [id number] ####[facility] LAB ([facility])[address] [place], [place] [address]Gsgs nitrogen [Mass/Vol]13 mg/dLNormal7-25 [facility] HealthComment on above:Performed By: #### [id number] ####[facility] LAB ([facility])[address] [place], [place] [address]QNUJ NITROGEN/CREATININE (MASS RATIO) IN SER/PLAS10.7NormalUniversRegional Medical CenterComment on above:Performed By: #### [id number] ####[facility] LAB ([facility])[address] [place], [place] [address]HMK WITH AUTO DIFFERENTIALon 32-82-1002Vkovgfdun (Bld) [#/Vol]0.01 10*3/uLNormal0.00-0.20UnMemorial Health System Selby General HospitalComment on above:Performed By: #### [id number] ####[facility] LAB ([facility])[address] [place] [address]Mnghbanhd/100 WBC (Bld)0.1 %Normal 0.0-1.0UnMemorial Health System Selby General HospitalComment on above:Performed By: #### [id number] ####[facility] LAB ([facility])[address] [place] [address] Eosinophils (Bld) [#/Vol]0.00 10*3/uLNormal0.00-0.50UnMemorial Health System Selby General HospitalComment on above:Performed By: #### [id number] ####[facility] LAB ([facility])[address] [place] [address]Qpxzwfctlhk/100 WBC (Bld)0.0 %Normal 0.0-6.0UnMemorial Health System Selby General HospitalComment on above:Performed By: #### [id number] ####[facility] LAB ([facility])[address] [place] [address] Erythrocyte distribution width (RBC) [Ratio]14.7 %Sjrwti91.5-15.0UnMemorial Health System Selby General HospitalComment on above:Performed By: #### [id number] ####[facility] LAB ([facility])[address] [place], [place] [address]QWYUBOEWKBY MEAN CORPUSCULAR HEMOGLOBIN CONCENTRATION (G/DL) BY QGHXPBAXC40.3 g/fBCftshh12.0-35.0 [facility] HealthComment on above:Performed By: #### [id number] ####[facility] LAB ([facility])[address] [place], [place] [address]Qmiisejopz (Bld) [Volume fraction]25.1 %Low39.0-50.0UnMemorial Health System Selby General HospitalComment on above:Performed By: #### [id number] ####[facility] LAB (BEAKER)[address] [place], [place] [address]Dvkcnlbqfn (Bld) [Mass/Vol]8.6 g/dLLow13.0-17.0UnMemorial Health System Selby General HospitalComment on above:Performed By: #### [id number] ####[facility] LAB ([facility])[address] [facility] [place] [address]Styokdio granulocytes (Bld) [#/Vol]0.07 10*3/uLNormal0.00-0.20UnMem[facility] Comment on above:Performed By: #### [id number] ####[facility] LAB ([facility])[address] [place] [place], [place] [address]Xslwuktn granulocytes/100 WBC (Bld)0.9 %Normal 0.0-1.0UnMemorial Health System Selby General HospitalComment on above:Performed By: #### [id number] ####[facility] ([facility])[address] [facility] [place] [address] Lymphocytes (Bld) [#/Vol]0.50 10*3/uLLow1.20-4.00UnMemorial Health System Selby General HospitalComment on above:Performed By: #### [id number] ####[facility] LAB ([facility])[address] [place], [place] [address]Pujgtpyjuhw/100 WBC (Bld)6.8 %Low 20.0-45.0UnMemorial Health System Selby General HospitalComment on above:Performed By: #### [id number] ####[facility] LAB ([facility])[address] [facility], [place] [address]CKW (RBC) [Entitic mass]32.2 wpIatcjq76.0-33.0UnMemorial Health [facility] Comment on above:Performed By: #### [id number] ####[facility] ([facility])[address] [place], [place] [address]OZZ (RBC) [Entitic vol]94.0 rVUrkmrq38.0-98.0 [facility] HealthComment on above:Performed By: #### [id number] ####[facility] ([facility])[address] [place] [address]Yplhdjyxi (Bld) [#/Vol]0.91 10*3/uLNormal0.10-1.00UnMemorial Health System [facility] General HospitalComment on above:Performed By: #### [id number] ####[facility] ([facility])[address] [place] [address]Xcrvhcpor/100 WBC (Bld)12.3 %High5.0-12.0UnMemorial Health System Selby General HospitalComment on above:Performed By: #### [id number] ####[facility] ([facility])[address] [place] [address]Txcumgrbigl (Bld) [#/Vol]5.90 10*3/uL Normal1.60-7.60UnMemorial Health System Selby General HospitalComment on above:Performed By: #### [id number] ####[facility] ([facility])[address] [place] [address] Neutrophils/100 WBC (Bld)79.9 %High40.0-72.0UnMemorial [facility] Comment on above:Performed By: #### [id number] ####[facility] ([facility])[address] [place] [address]JWFF (PER 100 WBCS) BY AUTOMATED COUNT1.1 %High0 [facility] HealthComment on above:Performed By: #### [id number] ####[facility] ([facility])[address] [place] [address]DCABAAUIM (10*3/UL) IN BLOOD AUTOMATED [id number] 10*3/hZXtxtft132-030JwipcsvcnxMemorial Health System Selby General HospitalComment on above:Performed By: #### [id number] ####[facility] ([facility])[address] [place] [address]UCB (Bld) [#/Vol]2.67 10*6/uLLow 4.20-5.70UnMemorial Health System Selby General HospitalComment on above:Performed By: #### [id number] ####[facility] ([facility])[address] [place] [address]EQM (Bld) [#/Vol]7.39 10*3/uLNormal4.00-10.60UnMemorial [facility] Comment on above:Performed By: #### [id number] ####[facility] ([facility])[address] [place] [address]RAKCSCRVEUGBX METABOLIC PANELon 74-62-3466Cilrmlz [Mass/Vol]3.4 g/dLLow3.5-5.7UnMemorial Health System Selby General HospitalComment on above: Performed By: #### [id number] ####[facility] ([facility])[address] [place] [address]UNL [Catalytic activity/Vol]65 U/SKptkgl07-652LxqabzlgktMemorial Health System Selby General HospitalComment on above:Performed By: #### [id number] ####[facility] LAB ([facility])[address] [place] [address]CLP [Catalytic activity/Vol]182 U/L High7-52UnMemorial Health System Selby General HospitalComment on above:Performed By: #### [id number] ####[facility] ([facility])[address] [place] [address]Dhbqq gap [Moles/Vol]10 mmol/LNormal7-20UnMemorial Health System Selby General HospitalComment on above:Performed By: #### [id number] ####[facility] LAB ([facility])[address] [place] [address]TKH [Catalytic activity/Vol]86 U/LRuvw40-61GfotvqczspMemorial Health System Selby General HospitalComment on above:Performed By: #### [id number] ####[facility] LAB ([facility])[address] [place], [place] [address]Qauixejsk [Mass/Vol]0.9 mg/dL Normal0.3-1.0UnMemorial Health System Selby General HospitalComment on above:Performed By: #### [id number] ####[facility] LAB ([facility])[address] [place] [address] Calcium [Mass/Vol]7.9 mg/dLLow8.6-10.3UnMemorial Health System Selby General HospitalComment on above:Performed By: #### [id number] ####[facility] LAB ([facility])[address] [place] [address]Yuamhjio [Moles/Vol]94 mmol/UJfe08-579CmijfcmpihMemorial Health System Selby General HospitalComment on above:Performed By: #### [id number] ####[facility] LAB ([facility])[address] [place] [address]PY8 [Moles/Vol]35 mmol/GZkcc01-78 [facility] HealthComment on above:Performed By: #### [id number] ####[facility] LAB ([facility])[address] [address]Ogdpmofcdy [Mass/Vol]1.04 mg/dLNormal0.70-1.30UnMemorial Health System Selby General HospitalComment on above:Performed By: #### [id number] ####[facility] ([facility])[address] [place] [address]VMLFVBORGP FILTRATION RATE ML/MIN/1.73 SQ M.OPYJEDGYS49.7 mL/min/1.73m*2Normal>60.0UnMemorial Health System Selby General HospitalComment on above: Result Comment: [facility]???s estimated glomerular filtration rate (eGFR) will [...] anyone group of individuals.Performed By: #### [id number] ####[facility] LAB ([facility])[address] [place] [address]Luqupjm [Mass/Vol]115 mg/zOIfcs63-458ZxxdlxhcoyMemorial Health System Selby General HospitalComment on above:Performed By: #### [id number] ####[facility] ([facility])[address] [place], [place] [address]Datfuwoqc [Moles/Vol]3.7 mmol/L Normal3.5-5.1UnMemorial Health System Selby General HospitalComment on above:Performed By: #### [id number] ####[facility] ([facility])[address] [place] [address] Protein [Mass/Vol]5.9 g/dLLow6.0-8.3UnMemorial Health System Selby General HospitalComment on above:Performed By: #### [id number] ####[facility] ([facility])[address] [place], [place] [address]Bofzea [Moles/Vol]135 mmol/OGxf338-377NqqpmnwjicMemorial Health System Selby General HospitalComment on above:Performed By: #### [id number] ####[facility] ([facility])[address] [place], [place] [address]Vdae nitrogen [Mass/Vol]12 mg/dLNormal 7-25UnMemorial Health System Selby General HospitalComment on above:Performed By: #### [id number] ####[facility] ([facility])[address], [place] [address]EZUF NITROGEN/CREATININE (MASS RATIO) IN SER/PLAS11.5NormalUniversRegional Medical CenterComment on above:Performed By: #### [id number] ####[facility] ([facility])[address] [place] [address]SBGXCBUXCvx [id number] [Mass/Vol]1.9 mg/dLNormal1.9-2.7UnMemorial Health System Selby General HospitalComment on above:Performed By: #### [id number] ####[facility] ([facility])[address], [place] [address]Fqjubwkhs [Mass/Vol]2.0 mg/dLNormal1.9-2.7UnMemorial Health System Selby General HospitalComment on above:Performed By: #### [id number] ####[facility] ([facility])[address], [place] [address]Xihkjcudi [Mass/Vol]2.1 mg/dLNormal1.9-2.7UnMemorial Health System Selby General HospitalComment on above:Performed By: #### [id number] ####[facility] ([facility])[address] [place] [address] PHOSPHORUSon [id number] [Mass/Vol]2.4 mg/dLLow2.5-5.0UnMemorial Health System Selby General HospitalComment on above:Performed By: #### [id number] ####[facility] ([facility])[address] [place], [place] [address]Ilwaxjwsz [Mass/Vol]2.6 mg/dLNormal2.5-5.0UnMemorial Health System Selby General HospitalComment on above:Performed By: #### [id number] ####[facility] ([facility])[address] [place] [address] Magnesium [Mass/Vol]2.7 mg/dLNormal2.5-5.0UnMemorial [facility] Hospital Comment on above:Performed By: #### [id number] ####[facility] ([facility])[address], [place] [address]io [id number] patient is Moderately Unstable - Medium risk of patient condition declining or worsening The patient's goals for the shift include comfort The clinical goals for the shift include VSSNormalUniversscci hospital lima of [facility] HospitalBASIC METABOLIC PANELon 84-75-8469Mutyt gap [Moles/Vol]11 mmol/LNormal7-20 [facility] HealthComment on above:Performed By: #### [id number] ####[facility] ([facility])[address], [place] [address]Jfzjwtg [Mass/Vol]7.9 mg/dLLow8.6-10.3UnMemorial Health System Selby General HospitalComment on above:Performed By: #### [id number] ####[facility] ([facility] [place], [place] [address]Vclnolhk [Moles/Vol]94 mmol/XIdz44-334EtrkqmhznjMemorial Health System Selby General HospitalComment on above:Performed By: #### [id number] ####[facility] ([facility])[address] [place] [address]OU9 [Moles/Vol]34 mmol/XZkrd81-76 [facility] HealthComment on above:Performed By: #### [id number] ####[facility] ([facility])[address] [place] [address]Hxykmzfddi [Mass/Vol]1.19 mg/dLNormal0.70-1.30UnMemorial Health System Selby General HospitalComment on above:Performed By: #### [id number] ####[facility] ([facility])[address] [place], [place] [address]IMYYMXYEAN FILTRATION RATE ML/MIN/1.73 SQ M.COXRFTRPP96.1 mL/min/1.73m*2Normal>60.0UnMemorial Health System Selby General HospitalComment on above: Result Comment: [facility]???s estimated glomerular filtration rate (eGFR) will [...] anyone group of individuals.Performed By: #### [id number] ####[facility] ([facility])[address] [address]Jxqzvwe [Mass/Vol]135 mg/oCCwjg09-998TbsruifbuaMemorial Health System Selby General HospitalComment on above:Performed By: #### [id number] ####[facility] ([facility])[address] [place] [address]Sjhdrwhlo [Moles/Vol]3.5 mmol/L Normal3.5-5.1UnMemorial Health System Selby General HospitalComment on above:Performed By: #### [id number] ####[facility] ([facility])[address] [place] [address] Sodium [Moles/Vol]135 mmol/JQvi152-610GnnwmgplxvMemorial Health System Selby General HospitalComment on above:Performed By: #### [id number] ####[facility] ([facility])[address] [place], [place] [address]Rcba nitrogen [Mass/Vol]14 mg/dLNormal7-25UnMemorial Health System Selby General HospitalComment on above:Performed By: #### [id number] ####[facility] ([facility])[address] [place], [place] [address]RMOV NITROGEN/CREATININE (MASS RATIO) IN SER/PLAS11.8NormalUniversRegional Medical CenterComment on above: Performed By: #### [id number] ####[facility] ([facility])[address] [place], [place] [address]Dwszq gap [Moles/Vol]10 mmol/LNormal7-20UnMemorial Health System Sel[facility] General HospitalComment on above:Performed By: #### [id number] ####[facility] ([facility])[address] [place], [place] [address]Zswqnel [Mass/Vol]7.7 mg/dLLow8.6-10.3 [facility] HealthComment on above:Performed By: #### [id number] ####[facility] ([facility])[address] [place], [place] [address]Gikdvrbr [Moles/Vol]94 mmol/JRet62-739BzsrzpupshMemorial Health System Selby General HospitalComment on above:Performed By: #### [id number] ####[facility] ([facility])[address] [place], [place] [address]JU8 [Moles/Vol]34 mmol/EJtaz28-54UnlxvxgczfMemorial Health System Selby General HospitalComment on above:Performed By: #### [id number] ####[facility] ([facility])[address] [place], [place] [address]Fuknckmlui [Mass/Vol]1.22 mg/dLNormal 0.70-1.30UnMemorial Health System Selby General HospitalComment on above:Performed By: #### [id number] ####[facility] ([facility])[address] [place], [place] [address]GQVCRXVUTP FILTRATION RATE ML/MIN/1.73 SQ M.QUSRBWRUR76.2 mL/min/1.73m*2Normal>60.0 [facility] HealthComment on above:Result Comment: The [facility]???s estimated glomerular filtration rate (eG FR) will [...] group of individuals. Performed By: #### [id number] ####[facility] ([facility])[address] [place], [place] [address]Dqrsdtb [Mass/Vol]141 mg/mZKwyb80-323UowabxidsyMemorial Health System Selby General HospitalComment on above:Performed By: #### [id number] ####[facility] ([facility])[address] [place], [place] [address]Hdjgxwsyj [Moles/Vol]3.7 mmol/LNormal 3.5-5.1UnMemorial Health System Selby General HospitalComment on above:Performed By: #### [id number] ####[facility] ([facility])[address] [place], [place] [address]Wlghye [Moles/Vol]134 mmol/EQfn466-679WyhfnonnzsMemorial Health System Selby General HospitalComment on above:Performed By: #### [id number] ####[facility] ([facility])[address] [place], [place] [address]Hotj nitrogen [Mass/Vol]15 mg/dLNormal7-25UnMemorial Health System Selby General HospitalComment on above:Performed By: #### [id number] ####[facility] ([facility])[address] [place], [place] [address]TIAG NITROGEN/CREATININE (MASS RATIO) IN SER/PLAS12.3NormalUniversRegional Medical CenterComment on above: Performed By: #### [id number] ####[facility] ([facility])[address] [place], [place] [address]Mfahy gap [Moles/Vol]8 mmol/LNormal7-20UnMemorial Health System Selby General HospitalComment on above:Performed By: #### [id number] ####[facility] ([facility])[address] [place], [place] [address]Ccmslhx [Mass/Vol]7.6 mg/dLLow8.6-10.3 [facility] HealthComment on above:Performed By: #### [id number] ####[facility] ([facility])[address] [place], [place] [address]Qdyzsleo [Moles/Vol]95 mmol/OVtq27-123ElzpdushxgMemorial Health System Selby General HospitalComment on above:Performed By: #### [id number] ####[facility] ([facility])[address] [place], [place] [address]YL2 [Moles/Vol]35 mmol/IUghm90-30DklarkfwcpMemorial Health System Selby General HospitalComment on above:Performed By: #### [id number] ####[facility] ([facility])[address] [place], [place] [address]Ixnzwigwef [Mass/Vol]1.27 mg/dLNormal 0.70-1.30UnMemorial Health System Sel[facility] General HospitalComment on above:Performed By: #### [id number] ####[facility] ([facility])[address] [place], [place] [address]QZLEQPQRVX FILTRATION RATE ML/MIN/1.73 SQ M.VWBCIQVTX63.2 mL/min/1.73m*2Normal>60.0 [facility] HealthComment on above:Result Comment: The [facility]???s estimated glomerular filtration rate (eG FR) will [...] group of individuals. Performed By: #### [id number] ####[facility] ([facility])[address] [place], [place] [address]Wlojazc [Mass/Vol]133 mg/vLKftq44-267BhjjwypdjrMemorial Health System Selby General HospitalComment on above:Performed By: #### [id number] ####[facility] ([facility])[address] [place], [place] [address]Bglrxxjdg [Moles/Vol]3.8 mmol/LNormal 3.5-5.1UnMemorial Health System Selby General HospitalComment on above:Performed By: #### [id number] ####[facility] ([facility])[address] [place], [place] [address]Nsbfvi [Moles/Vol]134 mmol/GBrk678-690PapsilrkcoMemorial Health System Selby General HospitalComment on above:Performed By: #### [id number] ####[facility] ([facility])[address] [place], [place] [address]Vfiq nitrogen [Mass/Vol]16 mg/dLNormal7-25UnMemorial Health System Selby General HospitalComment on above:Performed By: #### [id number] ####[facility] ([facility])[address] [place], [place] [address]VTGK NITROGEN/CREATININE (MASS RATIO) IN SER/PLAS12.6NormalUniversRegional Medical CenterComment on above: Performed By: #### [id number] ####[facility] ([facility])[address] [place], [place] [address]Vpqjo gap [Moles/Vol]9 mmol/LNormal7-20UnMemorial [facility] System [facility] General HospitalComment on above:Performed By: #### [id number] ####[facility] ([facility])[address] [place], [place] [address]Tzyjayf [Mass/Vol]8.0 mg/dLLow8.6-10.3 [facility] HealthComment on above:Performed By: #### [id number] ####[facility] ([facility])[address] [place], [place] [address]Arpvhiyt [Moles/Vol]95 mmol/FWde51-080LfskltfphrMemorial Health System Selby General HospitalComment on above:Performed By: #### [id number] ####[facility] ([facility])[address] [place] [address]TL6 [Moles/Vol]35 mmol/DJgxk05-84BudrbuuzhxMemorial Health System Selby General HospitalComment on above:Performed By: #### [id number] ####[facility] ([facility])[address] [place] [address]Wyiqcibkij [Mass/Vol]1.29 mg/dLNormal 0.70-1.30UnMemorial Health System Sel[facility] General HospitalComment on above:Performed By: #### [id number] ####[facility] ([facility])[address] [place] [address]QOUJRRPOPO FILTRATION RATE ML/MIN/1.73 SQ M.MUXWSFOWQ09.0 mL/min/1.73m*2Low>60.0UnMemorial Health System Selby General HospitalComment on above:Result Comment: The [facility]???s estimated glomerular filtration rate (eGFR) will [...] group of individuals. Performed By: #### [id number] ####[facility] ([facility])[address] [place] [address]Sswuaiv [Mass/Vol]95 mg/pLHftfgz45-880OysckwfdlrMemorial Health System Selby General HospitalComment on above:Performed By: #### [id number] ####[facility] ([facility])[address] [place] [address]Lsmyyykfq [Moles/Vol]3.7 mmol/LNormal 3.5-5.1UnMemorial Health System [facility] General HospitalComment on above:Performed By: #### [id number] ####[facility] ([facility])[address] [place], [place] [address]Uzacey [Moles/Vol]135 mmol/RFzd001-229MayaipfbopMemorial Health System Selby General HospitalComment on above:Performed By: #### [id number] ####[facility] ([facility])[address] [place], [place] [address]Ojwe nitrogen [Mass/Vol]16 mg/dLNormal7-25UnMemorial Health System [facility] General HospitalComment on above:Performed By: #### [id number] ####[facility] ([facility])[address] [place], [place] [address]XCKX NITROGEN/CREATININE (MASS RATIO) IN SER/PLAS12.4NormalUniversRegional Medical CenterComment on above: Performed By: #### [id number] ####[facility] ([facility])[address] [place], [place] [address]Tcxlu gap [Moles/Vol]10 mmol/LNormal7-20UnMemorial Health System [facility] General HospitalComment on above:Performed By: #### [id number] ####[facility] ([facility])[address] [place], [place] [address]Ldqarpf [Mass/Vol]7.8 mg/dLLow8.6-10.3 [facility] HealthComment on above:Performed By: #### [id number] ####[facility] ([facility])[address] [place], [place] [address]Jtzboels [Moles/Vol]95 mmol/TPkt38-251AgzmsqetwhMemorial Health System Selby General HospitalComment on above:Performed By: #### [id number] ####[facility] ([facility])[address] [place], [place] [address]SL9 [Moles/Vol]33 mmol/JFizf03-74VutqskascwMemorial Health System Selby General HospitalComment on above:Performed By: #### [id number] ####[facility] ([facility])[address] [place], [place] [address]Ujpgsxfjqt [Mass/Vol]1.32 mg/dLHigh 0.70-1.30UnMemorial Health System Selby General HospitalComment on above:Performed By: #### [id number] ####[facility] ([facility])[address] [place] [address]WUMPEEMVRQ FILTRATION RATE ML/MIN/1.73 SQ M.VWPYPYPLN41.4 mL/min/1.73m*2Low>60.0UnMemorial Health System Selby General HospitalComment on above:Result Comment: The [facility]???s estimated glomerular filtration rate (eGFR) will [...] group of individuals. Performed By: #### [id number] ####[facility] ([facility])[address] [place] [address]Wgvayur [Mass/Vol]103 mg/wBDjol43-448FxwpewifkgMemorial Health System Selby General HospitalComment on above:Performed By: #### [id number] ####[facility] ([facility])[address] [place] [address]Svmbuppuj [Moles/Vol]3.6 mmol/LNormal 3.5-5.1UnMemorial Health System Selby General HospitalComment on above:Performed By: #### [id number] ####[facility] ([facility])[address] [place], [place] [address]Lhontd [Moles/Vol]134 mmol/PHqd149-880YirupdmzhxMemorial Health System Selby General HospitalComment on above:Performed By: #### [id number] ####[facility] ([facility])[address] [place], [place] [address]Lmda nitrogen [Mass/Vol]18 mg/dLNormal7-25UnMemorial Health System [facility] General HospitalComment on above:Performed By: #### [id number] ####[facility] ([facility])[address] [place], [place] [address]OOBD NITROGEN/CREATININE (MASS RATIO) IN SER/PLAS13.6NormalUniversRegional Medical CenterComment on above: Performed By: #### [id number] ####[facility] ([facility])[address] [place] [address]CCQ WITH AUTO DIFFERENTIALon 03-20-8033Afnzpqmlz (Bld) [#/Vol]0.01 10*3/uLNormal0.00-0.20UnMemorial Health System [facility] General HospitalComment on above: Performed By: #### [id number] ####[facility] ([facility])[address] [place] [address]Fvfupedim/100 WBC (Bld)0.1 %Normal0.0-1.0UnMemorial Health System [facility] General HospitalComment on above:Performed By: #### [id number] ####[facility] ([facility])[address] [place], [place] [address]Ztryuvbxmbd (Bld) [#/Vol]0.01 10*3/uL Normal0.00-0.50UnMemorial Health System [facility] General HospitalComment on above:Performed By: #### [id number] ####[facility] ([facility])[address] [place] [address] Eosinophils/100 WBC (Bld)0.1 %Normal0.0-6.0UnMemorial [facility] Comment on above:Performed By: #### [id number] ####[facility] ([facility])[address] [place], [place] [address]Gsqbucphozo distribution width (RBC) [Ratio]14.7 % Kpstfl84.5-15.0UnMemorial Health System [facility] General HospitalComment on above:Performed By: #### [id number] ####[facility] ([facility])[address] [place] [address] ERYTHROCYTE MEAN CORPUSCULAR HEMOGLOBIN CONCENTRATION (G/DL) BY UQQBSZRNH89.3 g/zNLmagev24.0-35.0UnMemorial Health System [facility] General HospitalComment on above:Performed By: #### [id number] ####[facility] ([facility])[address] [place], [place] [address]Yksbchzxvw (Bld) [Volume fraction]23.9 %Low39.0-50.0UnMemorial Health System [facility] General HospitalComment on above:Performed By: #### [id number] ####[facility] ([facility])[address] [place] [address]Airhblltdt (Bld) [Mass/Vol]8.2 g/dLLow 13.0-17.0UnMemorial Health System Sel[facility] General HospitalComment on above:Performed By: #### [id number] ####[facility] ([facility])[address] [place] [address]Vedrozwi granulocytes (Bld) [#/Vol]0.05 10*3/uLNormal0.00-0.20UnMemorial Health System [facility] General HospitalComment on above:Performed By: #### [id number] ####[facility] ([facility])[address] [place] [address]Nqyqjjwf granulocytes/100 WBC (Bld)0.6 %Normal0.0-1.0UnMemorial Health System [facility] General HospitalComment on above:Performed By: #### [id number] ####[facility] ([facility])[address] [place] [address] Lymphocytes (Bld) [#/Vol]0.68 10*3/uLLow1.20-4.00UnMemorial Health System [facility] General HospitalComment on above:Performed By: #### [id number] ####[facility] ([facility])[address] [place] [address]Lvuwmsiopvb/100 WBC (Bld)7.8 %Low 20.0-45.0UnMemorial Health System Selby General HospitalComment on above:Performed By: #### [id number] ####[facility] ([facility])[address] [place] [address]WAN (RBC) [Entitic mass]31.8 lqOwcvcj31.0-33.0UnMemorial [facility] Comment on above:Performed By: #### [id number] ####[facility] ([facility])[address] [place], [place] [address]NTZ (RBC) [Entitic vol]92.6 kKJxltar36.0-98.0 [facility] HealthComment on above:Performed By: #### [id number] ####[facility] ([facility])[address] [address]Noyxquuer (Bld) [#/Vol]0.87 10*3/uLNormal0.10-1.00UnMemorial Health System [facility] General HospitalComment on above:Performed By: #### [id number] ####[facility] ([facility])[address] [place] [address]Eewpvkudw/100 WBC (Bld)9.9 %Normal5.0-12.0Mer[facility] HealthComment on above:Performed By: #### [id number] ####[facility] ([facility])[address] [place] [address]Wlkkfxvizyj (Bld) [#/Vol] 7.15 10*3/uLNormal1.60-7.60UnMemorial Health System [facility] General HospitalComment on above: Performed By: #### [id number] ####[facility] ([facility])[address] [place] [address]Dmapnhfblbi/100 WBC (Bld)81.5 %High40.0-72.0UnMemorial Health System Selby General HospitalComment on above:Performed By: #### [id number] ####[facility] ([facility])[address] [place] [address]CRIK (PER 100 WBCS) BY AUTOMATED COUNT1.1 %Yhnc9OmfebntanzMemorial Health System Selby General HospitalComment on above: Performed By: #### [id number] ####[facility] ([facility])[address] [place] [address]BPZFNWVQX (10*3/UL) IN BLOOD AUTOMATED [id number] 10*3/uLLow 150-400UnMemorial Health System [facility] General HospitalComment on above:Performed By: #### [id number] ####[facility] ([facility])[address] [place] [address]ACO (Bld) [#/Vol]2.58 10*6/uLLow4.20-5.70UnMemorial Health System [facility] General HospitalComment on above:Performed By: #### [id number] ####[facility] ([facility])[address] [place] [address]KXQ (Bld) [#/Vol]8.77 10*3/uLNormal4.00-10.60UnMemorial Health System [facility] General HospitalComment on above:Performed By: #### [id number] ####[facility] ([facility])[address] [place] [address]ZJNGDIGLUWAZU METABOLIC PANELon 89-18-8986Sgylcww [Mass/Vol]3.2 g/dLLow3.5-5.7UnMemorial Health System [facility] General HospitalComment on above:Performed By: #### [id number] ####[facility] ([facility])[address] [place] [address]GLY [Catalytic activity/Vol]54 U/L Ylebro50-571MvbeznhygpMemorial Health System Selby General HospitalComment on above:Performed By: #### [id number] ####[facility] ([facility])[address] [place] [address]VXM [Catalytic activity/Vol]211 U/LHigh7-52UnMemorial Health System [facility] Comment on above:Performed By: #### [id number] ####[facility] ([facility])[address] [place] [address]Tjqvx gap [Moles/Vol]9 mmol/LNormal7-20UnMemorial Health System [facility] General HospitalComment on above:Performed By: #### [id number] ####[facility] ([facility])[address] [place], [place] [address]UNU [Catalytic activity/Vol]119 U/QTvih49-79KniyybztapMemorial Health System Selby General HospitalComment on above:Performed By: #### [id number] ####[facility] ([facility])[address] [place], [place] [address]Blezgxged [Mass/Vol]0.8 mg/dLNormal0.3-1.0UnMemorial Health System Selby General HospitalComment on above:Performed By: #### [id number] ####[facility] ([facility])[address] [address]Ctiajxk [Mass/Vol]8.0 mg/dLLow 8.6-10.3UnMemorial Health System Selby General HospitalComment on above:Performed By: #### [id number] ####[facility] ([facility])[address] [place] [address]Meyhixdd [Moles/Vol]94 mmol/CFtp88-671YpfvtrymhhMemorial Health System Selby General HospitalComment on above:Performed By: #### [id number] ####[facility] ([facility])[address] [place], [place] [address]XD5 [Moles/Vol]35 mmol/UDfgd55-51MzujizeemfMemorial Health System Selby General HospitalComment on above:Performed By: #### [id number] ####[facility] ([facility])[address] [place], [place] [address]Klqrlmdrle [Mass/Vol]1.21 mg/dLNormal 0.70-1.30UnMemorial Health System Selby General HospitalComment on above:Performed By: #### [id number] ####[facility] ([facility])[address] [place], [place] [address]LSGQHRWEIE FILTRATION RATE ML/MIN/1.73 SQ M.ZKBISEJQN42.8 mL/min/1.73m*2Normal>60.0 [facility]:Result Comment: [facility]s estimated glomerular filtration rate (eG FR) will [...] group of individuals. Performed By: #### [id number] ####[facility] ([facility])[address] [place], [place] [address]Xfockxk [Mass/Vol]100 mg/hUNjnohr04-056OolknwvvndMemorial Health System Selby General HospitalComment on above:Performed By: #### [id number] ####[facility] ([facility])[address] [place], [place] [address]Ckjsimiqc [Moles/Vol]3.5 mmol/LNormal 3.5-5.1UnMemorial Health System Sel[facility] General HospitalComment on above:Performed By: #### [id number] ####[facility] ([facility])[address] [place], [place] [address]Bqnganp [Mass/Vol]5.6 g/dLLow6.0-8.3UnMemorial Health System Sel[facility] General HospitalComment on above: Performed By: #### [id number] ####[facility] ([facility])[address] [place], [place] [address]Dpyrgn [Moles/Vol]134 mmol/OOhy639-165OjvfqujtvbMemorial Health System Selby General HospitalComment on above:Performed By: #### [id number] ####[facility] ([facility])[address] [place], [place] [address]Kgyk nitrogen [Mass/Vol]16 mg/dLNormal 7-25UnMemorial Health System Selby General HospitalComment on above:Performed By: #### [id number] ####[facility] ([facility])[address], [place] [address]IQZB NITROGEN/CREATININE (MASS RATIO) IN SER/PLAS13.2NormalUnMemorial Health System Selby General HospitalComment on above:Performed By: #### [id number] ####[facility] ([facility])[address], [place] [address]XGPMADAtq 61-20-4904XAMYQEXOtuilc Mercy HealthMAGNESIUMon 06-02-5278Sbfjmboro [Mass/Vol]1.8 mg/dLLow1.9-2.7UnMemorial Health System Selby General HospitalComment on above:Performed By: #### [id number] ####[facility] ([facility])[address] [place] [address] Magnesium [Mass/Vol]1.9 mg/dLNormal1.9-2.7UnMemorial Health System [facility] General Hospital Comment on above:Performed By: #### [id number] ####[facility] ([facility])[address] [place], [place] [address]Qkolavyhw [Mass/Vol]1.9 mg/dLNormal1.9-2.7 [facility] HealthComment on above:Performed By: #### [id number] ####[facility] ([facility])[address] [place], [place] [address]Xmzovosov [Mass/Vol]2.0 mg/dLNormal1.9-2.7UnMemorial Health System Selby General HospitalComment on above:Performed By: #### [id number] ####[facility] ([facility])[address] [place], [place] [address]Nvxshtuaw [Mass/Vol]2.0 mg/dLNormal1.9-2.7UnMemorial Health System Selby General HospitalComment on above:Performed By: #### [id number] ####[facility] ([facility])[address] [place], [place] [address]Swnfplexv [Mass/Vol]2.0 mg/dLNormal1.9-2.7UnMemorial Health System Selby General HospitalComment on above:Performed By: #### [id number] ####[facility] ([facility])[address] [place] [address] PHOSPHORUSon 65-97-0121Bxmhobbsm [Mass/Vol]2.2 mg/dLLow2.5-5.0UnMemorial Health System Selby General HospitalComment on above:Performed By: #### [id number] ####[facility] ([facility])[address] [place], [place] [address]Ovzgernkw [Mass/Vol]2.3 mg/dLLow2.5-5.0UnMemorial Health System Selby General HospitalComment on above:Performed By: #### [id number] ####[facility] ([facility] [place] [address] Magnesium [Mass/Vol]1.7 mg/dLLow2.5-5.0UnMemorial Health System [facility] Hospital Comment on above:Performed By: #### [id number] ####[facility] ([facility])[address] [place], [place] [address]Htavjvpvt [Mass/Vol]1.8 mg/dLLow2.5-5.0UnMemorial Health System Selby General HospitalComment on above:Performed By: #### [id number] ####[facility] ([facility])[address] [place], [place] [address]Abmnggjzz [Mass/Vol]1.8 mg/dLLow2.5-5.0UnMemorial Health System Selby General HospitalComment on above:Performed By: #### [id number] ####[facility] ([facility])[address] [place] [address] Magnesium [Mass/Vol]2.1 mg/dLLow2.5-5.0[facility] Comment on above:Performed By: #### [id number] ####[facility] ([facility])[address] [place], [place] [address]BLVGSUWjn 01-42-9235SKTTZVI (UMOL/L) IN [id number] umol/LRbdgyn29-41QodkdozcjwMemorial Health System Selby General HospitalComment on above:Performed By: #### [id number] ####[facility] ([facility])[address] [place] [address] BASIC METABOLIC PANELon 31-56-8221Icxwg gap [Moles/Vol]10 mmol/LNormal7-20 [facility] HealthComment on above:Performed By: #### [id number] ####[facility] ([facility])[address] [place], [place] [address]Qbgxhbc [Mass/Vol]7.7 mg/dLLow8.6-10.3UnMemorial Health System Selby General HospitalComment on above:Performed By: #### [id number] ####[facility] ([facility])[address] [place], [place] [address]Gbsrzdpw [Moles/Vol]95 mmol/WCon49-846FsohnnmsxkMemorial Health System Selby General HospitalComment on above:Performed By: #### [id number] ####[facility] ([facility])[address] [place] [address]AZ9 [Moles/Vol]33 mmol/EWzab33-62 [facility] HealthComment on above:Performed By: #### [id number] ####[facility] ([facility])[address] [place] [address]Rxfnxewibq [Mass/Vol]1.46 mg/dLHigh0.70-1.30UnMemorial Health System Selby General HospitalComment on above:Performed By: #### [id number] ####[facility] ([facility])[address] [address]UBJRUYTGID FILTRATION RATE ML/MIN/1.73 SQ M.PJROIHATW70.7 mL/min/1.73m*2Low>60.0UnMemorial Health System Selby General HospitalComment on above:Result Comment: [facility]???s estimated glomerular filtration rate (eGFR) will [...] anyone group of individuals.Performed By: #### [id number] ####[facility] ([facility])[address] [address]Icopkll [Mass/Vol]114 mg/kYAzcf07-623IijnbtgkdyMemorial Health System Selby General HospitalComment on above:Performed By: #### [id number] ####[facility] ([facility])[address] [place] [address]Pbefehvnp [Moles/Vol]3.6 mmol/L Normal3.5-5.1UnMemorial Health System Selby General HospitalComment on above:Performed By: #### [id number] ####[facility] ([facility])[address] [place] [address] Sodium [Moles/Vol]134 mmol/XInf018-769BspbnthwwtMemorial Health System Selby General HospitalComment on above:Performed By: #### [id number] ####[facility] ([facility])[address] [place], [place] [address]Svbx nitrogen [Mass/Vol]20 mg/dLNormal7-25UnMemorial Health System Selby General HospitalComment on above:Performed By: #### [id number] ####[facility] ([facility])[address] [place], [place] [address]OBPE NITROGEN/CREATININE (MASS RATIO) IN SER/PLAS13.7NormalUniversRegional Medical CenterComment on above: Performed By: #### [id number] ####[facility] ([facility])[address] [place], [place] [address]Yxled gap [Moles/Vol]12 mmol/LNormal7-20UnMemorial Health System Selby General HospitalComment on above:Performed By: #### [id number] ####[facility] ([facility])[address] [place], [place] [address]Pqzuqgq [Mass/Vol]8.0 mg/dLLow8.6-10.3 [facility] HealthComment on above:Performed By: #### [id number] ####[facility] ([facility])[address] [place], [place] [address]Ojlnednn [Moles/Vol]93 mmol/YFie81-265ZpsuynxfbkMemorial Health System Selby General HospitalComment on above:Performed By: #### [id number] ####[facility] ([facility])[address] [place], [place] [address]KT1 [Moles/Vol]32 mmol/LHrbx35-07MyryulkbmtMemorial Health System Selby General HospitalComment on above:Performed By: #### [id number] ####[facility] ([facility])[address] [place], [place] [address]Hksdrokjmu [Mass/Vol]1.47 mg/dLHigh 0.70-1.30UnMemorial Health System Selby General HospitalComment on above:Performed By: #### [id number] ####[facility] ([facility])[address] [place], [place] [address]NTBXITWECF FILTRATION RATE ML/MIN/1.73 SQ M.CNBNMAKQV39.3 mL/min/1.73m*2Low>60.0UnMemorial Health System Selby General HospitalComment on above:Result Comment: [facility]???s estimated glomerular filtration rate (eGFR) will [...] group of individuals. Performed By: #### [id number] ####[facility] ([facility])[address] [facility] [place] [address]Frentrn [Mass/Vol]113 mg/zTUktf96-223PfoyzzokatMemorial Health System Selby General HospitalComment on above:Performed By: #### [id number] ####[facility] ([facility])[address] [facility] [address]Yipgkvjol [Moles/Vol]3.6 mmol/LNormal 3.5-5.1UnMemorial Health System Selby General HospitalComment on above:Performed By: #### [id number] ####[facility] ([facility])[address] [place], [place] [address]Uuicmc [Moles/Vol]133 mmol/MSby637-335QbgeboyuwvMemorial Health System Selby General HospitalComment on above:Performed By: #### [id number] ####[facility] ([facility])[address], [place] [address]Vtwo nitrogen [Mass/Vol]21 mg/dLNormal7-25UnMemorial Health System Sel[facility] General HospitalComment on above:Performed By: #### [id number] ####[facility] ([facility])[address] [facility] [address]TDTS NITROGEN/CREATININE (MASS RATIO) IN SER/PLAS14.3NormalUniversRegional Medical CenterComment on above: Performed By: #### [id number] ####[facility] ([facility])[address] [place] [address]Odgqf gap [Moles/Vol]11 mmol/LNormal7-20UnMemorial Health System [facility] General HospitalComment on above:Performed By: #### [id number] ####[facility] ([facility])[address] [place] [address]Fgnsrab [Mass/Vol]8.0 mg/dLLow8.6-10.3 [facility] HealthComment on above:Performed By: #### [id number] ####[facility] ([facility])[address], [place] [address]Jsxkrgfy [Moles/Vol]94 mmol/RZqn18-439BwojhoqwboMemorial Health System Selby General HospitalComment on above:Performed By: #### [id number] ####[facility] ([facility])[address] [place] [address]FC6 [Moles/Vol]32 mmol/BTyas75-46RfcbkhckyoMemorial Health System Selby General HospitalComment on above:Performed By: #### [id number] ####[facility] ([facility])[address] [place], [place] [address]Lnmotjbtwz [Mass/Vol]1.69 mg/dLHigh 0.70-1.30UnMemorial Health System Selby General HospitalComment on above:Performed By: #### [id number] ####[facility] ([facility])[address], [place] [address]DARKXJJYEX FILTRATION RATE ML/MIN/1.73 SQ M.QVGHXDTOF99.4 mL/min/1.73m*2Low>60.0UnMemorial Health System Selby General HospitalComment on above:Result Comment: The [facility]???s estimated glomerular filtration rate (eGFR) will [...] group of individuals. Performed By: #### [id number] ####[facility] ([facility])[address] [place], [place] [address]Ikttxwl [Mass/Vol]108 mg/xNUkkv58-752RujmeovmhvMemorial Health System Selby General HospitalComment on above:Performed By: #### [id number] ####[facility] ([facility])[address] [place], [place] [address]Hcsoqccsk [Moles/Vol]3.5 mmol/LNormal 3.5-5.1UnMemorial Health System Selby General HospitalComment on above:Performed By: #### [id number] ####[facility] ([facility])[address] [place], [place] [address]Bdovpq [Moles/Vol]133 mmol/ZZhf829-220SovqrxcxypMemorial Health System Selby General HospitalComment on above:Performed By: #### [id number] ####[facility] ([facility])[address] [place], [place] [address]Ljcb nitrogen [Mass/Vol]23 mg/dLNormal7-25UnMemorial Health System [facility] General HospitalComment on above:Performed By: #### [id number] ####[facility] ([facility])[address] [place], [place] [address]LBPO NITROGEN/CREATININE (MASS RATIO) IN SER/PLAS13.6NormalUniversRegional Medical CenterComment on above: Performed By: #### [id number] ####[facility] ([facility])[address] [place], [place] [address]Laczf gap [Moles/Vol]10 mmol/LNormal7-20UnMemorial Health System Selby General HospitalComment on above:Performed By: #### [id number] ####[facility] ([facility])[address] [place], [place] [address]Iwiodrx [Mass/Vol]7.8 mg/dLLow8.6-10.3 [facility] HealthComment on above:Performed By: #### [id number] ####[facility] ([facility])[address] [place], [place] [address]Bzxrvegf [Moles/Vol]95 mmol/YVnh84-251StvfnhauywMemorial Health System Selby General HospitalComment on above:Performed By: #### [id number] ####[facility] ([facility])[address] [place] [address]LS6 [Moles/Vol]32 mmol/RQmcr08-52LuxnonqznvMemorial Health System Selby General HospitalComment on above:Performed By: #### [id number] ####[facility] ([facility])[address] [place] [address]Vbnpvckwcd [Mass/Vol]1.72 mg/dLHigh 0.70-1.30UnMemorial Health System [facility] General HospitalComment on above:Performed By: #### [id number] ####[facility] ([facility])[address] [place] [address]GHMVDNOMKD FILTRATION RATE ML/MIN/1.73 SQ M.BCZJOESXF97.5 mL/min/1.73m*2Low>60.0UnMemorial Health System Selby General HospitalComment on above:Result Comment: The [facility]???s estimated glomerular filtration rate (eGFR) will [...] group of individuals. Performed By: #### [id number] ####[facility] ([facility])[address] [place] [address]Pdyzkir [Mass/Vol]108 mg/fQMlec06-367SvgmpsqiwvMemorial Health System Selby General HospitalComment on above:Performed By: #### [id number] ####[facility] ([facility])[address] [place] [address]Hyrbeqbup [Moles/Vol]3.6 mmol/LNormal 3.5-5.1UnMemorial Health System [facility] General HospitalComment on above:Performed By: #### [id number] ####[facility] ([facility])[address] [place], [place] [address]Xgoqjl [Moles/Vol]133 mmol/DWoh984-463DkiwzinwxsMemorial Health System Selby General HospitalComment on above:Performed By: #### [id number] ####[facility] ([facility])[address] [place], [place] [address]Blas nitrogen [Mass/Vol]25 mg/dLNormal7-25UnMemorial Health System [facility] General HospitalComment on above:Performed By: #### [id number] ####[facility] ([facility])[address] [place], [place] [address]ZHCW NITROGEN/CREATININE (MASS RATIO) IN SER/PLAS14.5NormalUniversRegional Medical CenterComment on above: Performed By: #### [id number] ####[facility] ([facility])[address] [place], [place] [address]Reatj gap [Moles/Vol]13 mmol/LNormal7-20UnMemorial Health System [facility] General HospitalComment on above:Performed By: #### [id number] ####[facility] ([facility])[address] [place], [place] [address]Aupkzwc [Mass/Vol]7.1 mg/dLLow8.6-10.3 [facility] HealthComment on above:Performed By: #### [id number] ####[facility] ([facility])[address] [place], [place] [address]Afqzatcz [Moles/Vol]97 mmol/KAac26-102HzqfmwijqbMemorial Health System Selby General HospitalComment on above:Performed By: #### [id number] ####[facility] ([facility])[address] [place], [place] [address]AZ4 [Moles/Vol]26 mmol/EPsphoj74-71QzguffdhooMemorial Health System Selby General HospitalComment on above:Performed By: #### [id number] ####[facility] ([facility])[address] [place], [place] [address]Rqjtgprfny [Mass/Vol]2.17 mg/dLHigh 0.70-1.30UnMemorial Health System [facility] General HospitalComment on above:Performed By: #### [id number] ####[facility] ([facility])[address] [place] [address]FAJNPEZEPF FILTRATION RATE ML/MIN/1.73 SQ M.QJEBAHTRA12.2 mL/min/1.73m*2Low>60.0UnMemorial Health System [facility] General HospitalComment on above:Result Comment: [facility]???s estimated glomerular filtration rate (eGFR) will [...] group of individuals. Performed By: #### [id number] ####[facility] ([facility])[address] [place] [address]Cptqefs [Mass/Vol]111 mg/iKMjko11-782UnnaayymacMemorial Health System Selby General HospitalComment on above:Performed By: #### [id number] ####[facility] ([facility])[address] [place], [place] [address]Fngoaunwx [Moles/Vol]3.6 mmol/LNormal 3.5-5.1UnMemorial Health System [facility] General HospitalComment on above:Performed By: #### [id number] ####[facility] ([facility])[address] [place] [address]Olqiqm [Moles/Vol]132 mmol/KPka045-988TahqltdspyMemorial Health System Selby General HospitalComment on above:Performed By: #### [id number] ####[facility] ([facility])[address] [place], [place] [address]Panh nitrogen [Mass/Vol]32 mg/dLHigh7-25UnMemorial Health System [facility] General HospitalComment on above:Performed By: #### [id number] ####[facility] ([facility])[address] [place], [place] [address]OGPZ NITROGEN/CREATININE (MASS RATIO) IN SER/PLAS14.7NormalUniversRegional Medical CenterComment on above: Performed By: #### [id number] ####[facility] ([facility])[address] [place] [address]Gnvln gap [Moles/Vol]13 mmol/LNormal7-20UnMemorial Health System [facility] General HospitalComment on above:Performed By: #### [id number] ####[facility] ([facility])[address] [place] [address]Sombdie [Mass/Vol]7.2 mg/dLLow8.6-10.3 [facility] HealthComment on above:Performed By: #### [id number] ####[facility] ([facility])[address], [place] [address]Lchxcelv [Moles/Vol]97 mmol/YVii17-588RuizckcmdxMemorial Health System Selby General HospitalComment on above:Performed By: #### [id number] ####[facility] ([facility])[address] [place] [address]HI9 [Moles/Vol]26 mmol/QOwklug83-14NgkexcevngMemorial Health System Selby General HospitalComment on above:Performed By: #### [id number] ####[facility] ([facility])[address] [place], [place] [address]Ykbulszoic [Mass/Vol]2.37 mg/dLHigh 0.70-1.30UnMemorial Health System [facility] General HospitalComment on above:Performed By: #### [id number] ####[facility] ([facility])[address] [place], [place] [address]YIMZHMMAPU FILTRATION RATE ML/MIN/1.73 SQ M.LTBOLBGUM76.9 mL/min/1.73m*2Low>60.0UnMemorial Health System Selby General HospitalComment on above:Result Comment: [facility]???s estimated glomerular filtration rate (eGFR) will [...] group of individuals. Performed By: #### [id number] ####[facility] ([facility])[address] [place], [place] [address]Pxdpdqi [Mass/Vol]108 mg/mNSmyn97-807NzoncwebzaMemorial Health System Selby General HospitalComment on above:Performed By: #### [id number] ####[facility] ([facility])[address] [place], [place] [address]Zghlwqiqe [Moles/Vol]3.5 mmol/LNormal 3.5-5.1UnMemorial Health System [facility] General HospitalComment on above:Performed By: #### [id number] ####[facility] ([facility])[address] [place], [place] [address]Tlohly [Moles/Vol]132 mmol/VSyx905-471StahyfbbbyMemorial Health System Selby General HospitalComment on above:Performed By: #### [id number] ####[facility] ([facility])[address] [facility] [place] [address]Titg nitrogen [Mass/Vol]33 mg/dLHigh7-25UnMemorial Health System [facility] General HospitalComment on above:Performed By: #### [id number] ####[facility] ([facility])[address] [place], [place] [address]XVXA NITROGEN/CREATININE (MASS RATIO) IN SER/PLAS13.9NormalUniversRegional Medical CenterComment on above: Performed By: #### [id number] ####[facility] ([facility])[address] [facility], [place] [address]SAMYD GAS, VENOUSon 67-15-0050YM0 (BldV) [Partial pressure]48 mm[Hg] Mrrdnj50-61FuxunurzgrMemorial Health System Selby General HospitalComment on above:Performed By: #### [id number] ####[facility] [id number] [place] [address] [place] HCO3 (Bld) [Moles/Vol]31.9 mmol/LNormalUnMemorial Health System [facility] Hospital Comment on above:Performed By: #### [id number] ####[facility] [id number] [place] [address] USAOxygen (BldV) [Partial pressure]35 mm[Hg]Normal 35-45UnMemorial Health System Selby General HospitalComment on above:Performed By: #### [id number] ####[facility] [id number] [place] [address] USAOXYGEN SATURATION (%) IN VENOUS BLOOD56.1 %Low65.0-75.0UnMemorial Health System Selby General HospitalComment on above:Performed By: #### [id number] ####[facility] [id number] [place] [address] USAOXYGENATED HEMOGLOBIN, MEJHAP48.6 % NormalUnMemorial Health System Selby General HospitalComment on above:Performed By: #### [id number] ####[facility] [id number] [place] [address] USAPCO2 VENOUS TEMP [id number] hpVzKkewiq79-44IzlxganhldMemorial Health System Selby General HospitalComment on above:Performed By: #### [id number] ####[facility] [id number] [place] [address] USAPH OF VENOUS BLOOD7.45Uajk6.31-7.41UnMemorial Health System Selby General HospitalComment on above:Performed By: #### [id number] ####[facility] [id number] [place] [address] USAPH VENOUS TEMP ADJUSTED7.43High 7.31-7.41UnMemorial Health System Selby General HospitalComment on above:Performed By: #### [id number] ####[facility] [id number] [place] [address] USAPO2 VENOUS TEMP ZWSCCHCG31 pfFxKvnpyg37-06HuvidxkoqlMemorial Health System Selby General HospitalComment on above:Performed By: #### [id number] ####[facility] [id number] [place] [address] AONXOODXEBAADR99.0 ???CNormalUnMemorial Health System Selby General HospitalComment on above:Performed By: #### [id number] ####[facility] [id number] [place] [address] USACBC WITH AUTO DIFFERENTIALon 75-13-0080Kftsrkdfs (Bld) [#/Vol]0.01 10*3/uLNormal0.00-0.20UnMemorial Health System Selby General HospitalComment on above:Performed By: #### [id number] ####[facility] ([facility])[address] [place], [place] [address]Nyetbiuey/100 WBC (Bld)0.1 %Normal 0.0-1.0UnMemorial Health System Selby General HospitalComment on above:Performed By: #### [id number] ####[facility] ([facility] [place] [address] Eosinophils (Bld) [#/Vol]0.00 10*3/uLNormal0.00-0.50UnMemorial Health System Selby General HospitalComment on above:Performed By: #### [id number] ####[facility] ([facility])[address] [place], [place] [address]Hkwdztimlhf/100 WBC (Bld)0.0 %Normal 0.0-6.0Un[facility] HospitalComment on above:Performed By: #### [id number] ####[facility] ([facility])[address] [place] [address] Erythrocyte distribution width (RBC) [Ratio]14.5 %Bkmucj86.5-15.0Un[facility] HospitalComment on above:Performed By: #### [id number] ####[facility] ([facility])[address] [place], [place] [address]AFMLGOSHYSF MEAN CORPUSCULAR HEMOGLOBIN CONCENTRATION (G/DL) BY XNVAXOWFD85.5 g/mHNpet24.0-35.0 [facility] HealthComment on above:Performed By: #### [id number] ####[facility] ([facility])[address] [place], [place] [address]Ladlxyyalr (Bld) [Volume fraction]23.4 %Low39.0-50.0Un[facility] HospitalComment on above:Performed By: #### [id number] ####[facility] ([facility])[address] [place] [address]Wqzesrefdh (Bld) [Mass/Vol]8.3 g/dLLow13.0-17.0Un[facility] HospitalComment on above:Performed By: #### [id number] ####[facility] [facility] [address]Tbbniuvn granulocytes (Bld) [#/Vol]0.07 10*3/uLNormal0.00-0.20Un[facility] Comment on above:Performed By: #### [id number] ####[facility] ([facility])[address] [place] [address]Xhflwbzm granulocytes/100 WBC (Bld)0.7 %Normal 0.0-1.0UnMemorial [facility] HospitalComment on above:Performed By: #### [id number] ####[facility] ([facility])[address] [place] [address]COIRXZFB PLATELET FRACTION %5.7 %Normal0.8-6.3UnMemorial [facility] HospitalComment on above:Performed By: #### [id number] ####[facility] ([facility])[address] [place] [address]Bzuajnamsqf (Bld) [#/Vol]0.32 10*3/uLLow1.20-4.00 [facility] HealthComment on above:Performed By: #### [id number] ####[facility] ([facility])[address] [place] [address]Twmyommozet/100 WBC (Bld)3.3 %Low20.0-45.0UnMem[facility] HospitalComment on above: Performed By: #### [id number] ####[facility] ([facility])[address] [place] [address]GZK (RBC) [Entitic mass]32.0 kgYemirv03.0-33.0UnMemorial [facility] HospitalComment on above:Performed By: #### [id number] ####[facility] ([facility])[address] [place] [address]YQC (RBC) [Entitic vol] 90.3 zHYotcch64.0-98.0UnMemorial [facility] HospitalComment on above: Performed By: #### [id number] ####[facility] ([facility])[address] [place] [address]Pppsjhsmz (Bld) [#/Vol]0.55 10*3/uLNormal0.10-1.00UnMem[facility] HospitalComment on above:Performed By: #### [id number] ####[facility] ([facility])[address] [place] [address]Jroqdwspf/100 WBC (Bld) 5.6 %Normal5.0-12.0Mercy HealthComment on above:Performed By: #### [id number] ####[facility] ([facility])[address] [place] [address]Fvvfbwbhjke (Bld) [#/Vol]8.81 10*3/uLHigh1.60-7.60UnMem[facility] HospitalComment on above:Performed By: #### [id number] ####[facility] ([facility])[address] [place] [address]Inzqdhxjnyj/100 WBC (Bld)90.3 %High 40.0-72.0UnMemorial [facility] HospitalComment on above:Performed By: #### [id number] ####[facility] ([facility])[address] [place] [address]RJCQ (PER 100 WBCS) BY AUTOMATED COUNT0.3 %Ufda2DtvuyphxrlMemorial Health System [facility] Hospital Comment on above:Performed By: #### [id number] ####[facility] ([facility])[address] [place] [address]JDGCIXIZH (10*3/UL) IN BLOOD AUTOMATED [id number] 10*3/fXJsj123-655LnygoliqgtMemorial Health System Selby General HospitalComment on above:Performed By: #### [id number] ####[facility] ([facility])[address] [place] [address]VKB (Bld) [#/Vol]2.59 10*6/uLLow4.20-5.70UnMem[facility] HospitalComment on above:Performed By: #### [id number] ####[facility] ([facility])[address] [address]WIM (Bld) [#/Vol]9.76 10*3/uLNormal 4.00-10.60UnMem[facility] HospitalComment on above:Performed By: #### [id number] ####[facility] ([facility])[address] [place] [address] COMPREHENSIVE METABOLIC PANELon 75-52-0786Jvimbkq [Mass/Vol]3.1 g/dLLow3.5-5.7 [facility] HealthComment on above:Performed By: #### [id number] ####[facility] ([facility])[address] [place] [address]PRE [Catalytic activity/Vol]56 U/XQtzsij65-485HlpuxjxrtnMemorial Health System Selby General HospitalComment on above:Performed By: #### [id number] ####[facility] ([facility])[address] [place] [address]DBS [Catalytic activity/Vol]267 U/LHigh7-52UnMem[facility] HospitalComment on above:Performed By: #### [id number] ####[facility] ([facility])[address] [place] [address]Ljvvu gap [Moles/Vol]14 mmol/L Normal7-20UnMem[facility] HospitalComment on above:Performed By: #### [id number] ####[facility] ([facility])[address], [place] [address]OSV [Catalytic activity/Vol]252 U/HNgqq01-09TxbcnundsuMemorial Health System [facility] Comment on above:Performed By: #### [id number] ####[facility] ([facility])[address] [place] [address]Drsghdysd [Mass/Vol]0.7 mg/dLNormal0.3-1.0 [facility] HealthComment on above:Performed By: #### [id number] ####[facility] ([facility])[address] [place] [address]Flpzppw [Mass/Vol]7.5 mg/dLLow8.6-10.3UnMem[facility] HospitalComment on above:Performed By: #### [id number] ####[facility] ([facility])[address] [place] [address]Inweeocr [Moles/Vol]96 mmol/YEup66-191MtcrrhhcsgMemorial Health System Selby General HospitalComment on above:Performed By: #### [id number] ####[facility] ([facility])[address] [place] [address]SG7 [Moles/Vol]26 mmol/FMofwzu48-04 [facility] HealthComment on above:Performed By: #### [id number] ####[facility] ([facility])[address] [place] [address]Holyyfyyii [Mass/Vol]2.24 mg/dLHigh0.70-1.30UnMem[facility] HospitalComment on above:Performed By: #### [id number] ####[facility] ([facility])[address] [place] [address]WFQLBOZRTV FILTRATION RATE ML/MIN/1.73 SQ M.OYVLZONGO91.0 mL/min/1.73m*2Low>60.0UnMemorial [facility] HospitalComment on above:Result Comment: [facility]???s estimated glomerular filtration rate (eGFR) will [...] anyone group of individuals.Performed By: #### [id number] ####[facility] ([facility])[address], [place] [address]Bjhmmal [Mass/Vol]111 mg/lMLroo95-111QjcgzikgekMemorial Health System Selby General HospitalComment on above:Performed By: #### [id number] ####[facility] ([facility])[address], [place] [address]Qoonfanop [Moles/Vol]3.7 mmol/L Normal3.5-5.1UnMemorial [facility] HospitalComment on above:Performed By: #### [id number] ####[facility] ([facility])[address] [place] [address] Protein [Mass/Vol]5.5 g/dLLow6.0-8.3UnMem[facility] HospitalComment on above:Performed By: #### [id number] ####[facility] ([facility])[address], [place] [address]Zfeuge [Moles/Vol]132 mmol/BLzv375-249OkxpaqnmpeMemorial Health System Selby General HospitalComment on above:Performed By: #### [id number] ####[facility] ([facility])[address], [place] [address]Wtsk nitrogen [Mass/Vol]32 mg/dLHigh 7-25UnMem[facility] HospitalComment on above:Performed By: #### [id number] ####[facility] ([facility])[address], [place] [address]DIKO NITROGEN/CREATININE (MASS RATIO) IN SER/PLAS14.3NormalUniversRegional Medical CenterComment on above:Performed By: #### [id number] ####[facility] ([facility])[address], [place] [address]CGVBYPOZzi 92-33-028[address]OHUUUYFN (NG/ML) IN SER/ONBM3708.0 ng/sIQwow15.0-336.0UnMem[facility] HospitalComment on above:Performed By: #### [id number] ####[facility] ([facility])[address], [place] [address]BVII AND TIBCon 58-15-7699SZQC (UG/DL) IN SER/PLAS33 ug/dLLow 50-212UnMem[facility] HospitalComment on above:Performed By: #### [id number] ####[facility] ([facility])[address] [place], [place] [address]LZTJ BINDING CAPACITY (UG/DL) IN SER/PVGQ417 ug/yDNme447-377GpqiskwxtpMemorial Health System Selby General HospitalComment on above:Performed By: #### [id number] ####[facility] ([facility])[address], [place] [address]JLZO BINDING CAPACITY.UNSATURATED (UG/DL) IN SER/SRNU566.0 ug/kSZqqcie613.0-355.0UnMemorial [facility] HospitalComment on above:Performed By: #### [id number] ####[facility] ([facility])[address], [place] [address]IQQI SATURATION (%) IN SER/PLAS15 %Low 20-50UnMemorial [facility] HospitalComment on above:Performed By: #### [id number] ####[facility] ([facility])[address], [place] [address]GGTPAVUAY on 15-17-8148Kzehfoblg [Mass/Vol]1.9 mg/dLNormal1.9-2.7UnMemorial [facility] HospitalComment on above:Performed By: #### [id number] ####[facility] ([facility])[address], [place] [address]Qvchmdkdi [Mass/Vol]2.0 mg/dLNormal 1.9-2.7UnMemorial [facility] HospitalComment on above:Performed By: #### [id number] ####[facility] ([facility])[address] [place], [place] [address]Omjehrjvh [Mass/Vol]2.1 mg/dLNormal1.9-2.7UnMemorial [facility] HospitalComment on above:Performed By: #### [id number] ####[facility] ([facility])[address] [place], [place] [address]Sftcoqwfw [Mass/Vol]2.2 mg/dLNormal1.9-2.7UnMemorial [facility] HospitalComment on above:Performed By: #### [id number] ####[facility] ([facility])[address] [place], [place] [address]Nurigadrm [Mass/Vol]1.9 mg/dLNormal1.9-2.7UnMemorial [facility] HospitalComment on above:Performed By: #### [id number] ####[facility] ([facility])[address] [place] [address] Magnesium [Mass/Vol]2.0 mg/dLNormal1.9-2.7Un[facility] Comment on above:Performed By: #### [id number] ####[facility] ([facility])[address] [place], [place] [address]PPEHERARJOqa 65-58-5618Hlbdfglgq [Mass/Vol]2.8 mg/dLNormal2.5-5.0UnMem[facility] HospitalComment on above:Performed By: #### [id number] ####[facility] ([facility])[address] [place] [address] Magnesium [Mass/Vol]3.0 mg/dLNormal2.5-5.0Un[facility] Comment on above:Performed By: #### [id number] ####[facility] ([facility])[address] [place], [place] [address]Emoasnmok [Mass/Vol]2.5 mg/dLNormal2.5-5.0 [facility] HealthComment on above:Performed By: #### [id number] ####[facility] ([facility])[address] [place], [place] [address]Cfdyjmbzc [Mass/Vol]2.4 mg/dLLow2.5-5.0UnMemorial [facility] HospitalComment on above:Performed By: #### [id number] ####[facility] ([facility])[address] [place], [place] [address]Nqkbeggci [Mass/Vol]2.8 mg/dLNormal2.5-5.0UnMemorial [facility] HospitalComment on above:Performed By: #### [id number] ####[facility] ([facility])[address] [place] [address]Cviueeylw [Mass/Vol]2.7 mg/dLNormal2.5-5.0UnMemorial [facility] HospitalComment on above:Performed By: #### [id number] ####[facility] ([facility])[address] [place] [address] 30on 04-08-917559Bzz patient is Moderately Unstable - Medium risk of patient condition declining or worsening The patient's goals for the shift include comfort The clinical goals for the shift include VSSNormalUniversity of Memorial Hermann Katy HospitalABG UNSOLICITED RESULTSon 17-41-7333C-PQW3TjanviNhrgjluyxr OhioHealthComment on above:Result Comment: C^IncalculablePerformed By: #### [id number] ####[facility] [id number] [place] [address] USABase excess Calc (Bld) [Moles/Vol]-7.3000 mmol/LLow-2.0-3.0UnMemorial Health [facility] HospitalComment on above:Performed By: #### [id number] ####[facility] [id number] [place] [address] USACO2 (Bld) [Partial pressure]30 mm[Hg]Igj43-78ZpksspblktMemorial Health System Selby General HospitalComment on above:Performed By: #### [id number] ####[facility] [id number] [place] [address] [place] HCO3 (Bld) [Moles/Vol]16.9 mmol/LLow21.0-28.0Un[facility] Comment on above:Performed By: #### [id number] ####[facility] [id number] [place] [address] USAOxygen (Bld) [Partial pressure]86 mm[Hg]Normal 83-108UnMemorial [facility] HospitalComment on above:Performed By: #### [id number] ####[facility] [id number] [place] [address] USAOXYGEN DEVICE #1CannulaNormMagruder HospitalniKettering Health DaytonComment on above: Performed By: #### [id number] ####[facility] [id number] [place] [address] USAOXYGEN LITERS PER MINUTE (LPM) IN BLOOD4.0 LPMNormalMercy HealthComment on above:Performed By: #### [id number] ####[facility] [id number] [place] [address] USAOXYGEN SATURATION (%) IN ARTERIAL BLOOD98.1 %Olntjw27.0-100.0UnMem[facility] Comment on above:Performed By: #### [id number] ####[facility] [id number] [place] [address] USAOXYGENATED HEMOGLOBIN IN ARTERIAL BLOOD96.2 % Cqywmh12.0-97.0UnMemorial Health System [facility] HospitalComment on above:Performed By: #### [id number] ####[facility] [id number] [place] [address] [place] PAO2/VOG1HsskjyQwfilrbdchKettering Health DaytonComment on above:Result Comment: C^IncalculablePerformed By: #### [id number] ####[facility] [id number] [place] [address] USAPF RATIONormalUnMemorial Health System [facility]by General HospitalComment on above:Result Comment: C^IncalculablePerformed By: #### [id number] ####[facility] [id number] [place] [address] USAPH OF ARTERIAL BLOOD7.65Vpsxqm2.35-7.45UnMemorial [facility] HospitalComment on above:Performed By: #### [id number] ####[facility] [id number] [place] [address] GNBMCZUUBQTALN35.0 ???CNormalUnMemorial Health System [facility] General HospitalComment on above:Performed By: #### [id number] ####[facility] [id number] [place] [address] USABASIC METABOLIC PANELon 04-28-2025 Anion gap [Moles/Vol]15 mmol/LNormal7-20Un[facility] Comment on above:Performed By: #### [id number] ####[facility] ([facility])[address] [place] [address]Twdptwi [Mass/Vol]6.9 mg/dLLow8.6-10.3UnMemorial [facility] HospitalComment on above:Performed By: #### [id number] ####[facility] ([facility])[address] [facility] [place] [address]Oxiisvgy [Moles/Vol]99 mmol/DYuhhxc69-648CmwnagtsldMemorial Health System Selby General HospitalComment on above:Performed By: #### [id number] ####[facility] ([facility])[address] [facility] [place] [address] CO2 [Moles/Vol]21 mmol/PWfbirj13-12UfvdjfgmzbMemorial Health System [facility]by [facility] HospitalComment on above:Performed By: #### [id number] ####[facility] ([facility])[address] [facility] [address]Wrfkttcbxl [Mass/Vol]2.65 mg/dLHigh0.70-1.30UnMemorial [facility] HospitalComment on above:Performed By: #### [id number] ####[facility] ([facility])[address] [facility], [place] [address]OUTERULORZ FILTRATION RATE ML/MIN/1.73 SQ M.BXRXYYXDB80.3 mL/min/1.73m*2Low>60.0UnMemorial [facility] HospitalComment on above:Result Comment: [facility]???s estimated glomerular filtration rate (eGFR) will [...] anyone group of individuals.Performed By: #### [id number] ####[facility] ([facility])[address], [place] [address]Jwgeazd [Mass/Vol]109 mg/dZPsie63-848PpcvffefjzMemorial Health System Selby [facility] HospitalComment on above:Performed By: #### [id number] ####[facility] ([facility])[address], [place] [address]Wpxyjjfhr [Moles/Vol]3.7 mmol/LNormal3.5-5.1UnMemorial [facility] HospitalComment on above:Performed By: #### [id number] ####[facility] ([facility])[address], [place] [address]Phvtoi [Moles/Vol]131 mmol/LLow 136-145UnMemorial Health System [facility] HospitalComment on above:Performed By: #### [id number] ####[facility] ([facility])[address], [place] [address]Urbl nitrogen [Mass/Vol]38 mg/dLHigh7-25UnMemorial [facility] HospitalComment on above:Performed By: #### [id number] ####[facility] ([facility])[address], [place] [address]NWGE NITROGEN/CREATININE (MASS RATIO) IN SER/PLAS14.3Normal [facility] HealthComment on above:Performed By: #### [id number] ####[facility] ([facility])[address], [place] [address]Ghcfa gap [Moles/Vol]14 mmol/LNormal7-20UnMemorial [facility] HospitalComment on above:Performed By: #### [id number] ####[facility] ([facility])[address], [place] [address]Tkxalet [Mass/Vol]6.3 mg/dLLow8.6-10.3UnMemorial [facility] System [facility] HospitalComment on above:Performed By: #### [id number] ####[facility] ([facility])[address], [place] [address]Jvtqreum [Moles/Vol]100 mmol/LNormal 98-107UnMemorial [facility] System [facility] HospitalComment on above:Performed By: #### [id number] ####[facility] ([facility])[address], [place] [address]LV9 [Moles/Vol]21 mmol/UZyfvhh08-05MxayvkkajzMemorial Health System Selby General HospitalComment on above:Performed By: #### [id number] ####[facility] ([facility])[address], [place] [address]Disytdgdyz [Mass/Vol]3.34 mg/dLHigh0.70-1.30UnMemorial [facility] System [facility] HospitalComment on above:Performed By: #### [id number] ####[facility] ([facility])[address], [place] [address]VNOZQQLIEK FILTRATION RATE ML/MIN/1.73 SQ M.ZZGVZAQFU15.2 mL/min/1.73m*2Low>60.0UnMemorial Health System [facility] General HospitalComment on above:Result Comment: [facility]???s estimated glomerular filtration rate (eGFR) will [...] anyone group of individuals.Performed By: #### [id number] ####[facility] ([facility])[address], [place] [address]Tfgccym [Mass/Vol]123 mg/lANtrk99-186KwxqygnpyqMemorial Health System Selby General HospitalComment on above:Performed By: #### [id number] ####[facility] ([facility])[address], [place] [address]Qwsuwtbqo [Moles/Vol]3.6 mmol/LNormal3.5-5.1UnMemorial Health System [facility] HospitalComment on above:Performed By: #### [id number] ####[facility] ([facility])[address] [place], [place] [address]Waqojf [Moles/Vol]131 mmol/LLow 136-145UnMemorial Health System [facility] General HospitalComment on above:Performed By: #### [id number] ####[facility] ([facility])[address], [place] [address]Pztb nitrogen [Mass/Vol]45 mg/dLHigh7-25UnMemorial [facility] System [facility] HospitalComment on above:Performed By: #### [id number] ####[facility] ([facility])[address], [place] [address]WJTJ NITROGEN/CREATININE (MASS RATIO) IN SER/PLAS13.5Normal [facility] HealthComment on above:Performed By: #### [id number] ####[facility] ([facility])[address], [place] [address]Yyjlb gap [Moles/Vol]14 mmol/LNormal7-20UnMemorial [facility] System [facility] HospitalComment on above:Performed By: #### [id number] ####[facility] ([facility])[address], [place] [address]Lrurgfd [Mass/Vol]6.7 mg/dLLow8.6-10.3UnMemorial Health System [facility] HospitalComment on above:Performed By: #### [id number] ####[facility] ([facility])[address], [place] [address]Mszqkoav [Moles/Vol]99 mmol/LNormal 98-107UnMemorial [facility] HospitalComment on above:Performed By: #### [id number] ####[facility] ([facility])[address], [place] [address]GC0 [Moles/Vol]21 mmol/ZUbjztx88-35FxkyqwmahuMemorial Health System Selby General HospitalComment on above:Performed By: #### [id number] ####[facility] ([facility])[address], [place] [address]Faiiykeoof [Mass/Vol]3.36 mg/dLHigh0.70-1.30UnMemorial [facility] System [facility] HospitalComment on above:Performed By: #### [id number] ####[facility] ([facility])[address], [place] [address]VUDQDGUCCT FILTRATION RATE ML/MIN/1.73 SQ M.INRNASDBK37.0 mL/min/1.73m*2Low>60.0UnMemorial Health System [facility] General HospitalComment on above:Result Comment: [facility]???s estimated glomerular filtration rate (eGFR) will [...] anyone group of individuals.Performed By: #### [id number] ####[facility] ([facility])[address] [place], [place] [address]Glvvhqz [Mass/Vol]121 mg/pAXcuy55-647SrfyjtdrpnMemorial Health System Selby General HospitalComment on above:Performed By: #### [id number] ####[facility] ([facility])[address] [place], [place] [address]Uxsppcklo [Moles/Vol]4.3 mmol/LNormal3.5-5.1UnMemorial Health System [facility]by General HospitalComment on above:Performed By: #### [id number] ####[facility] ([facility])[address] [place], [place] [address]Dwnqmk [Moles/Vol]130 mmol/LLow 136-145UnMemorial Health System Selby General HospitalComment on above:Performed By: #### [id number] ####[facility] ([facility])[address] [place], [place] [address]Ards nitrogen [Mass/Vol]42 mg/dLHigh7-25UnMemorial Health System Selby General HospitalComment on above:Performed By: #### [id number] ####[facility] ([facility])[address] [place], [place] [address]PKXI NITROGEN/CREATININE (MASS RATIO) IN SER/PLAS12.5Normal Mercy HealthComment on above:Performed By: #### [id number] ####[facility] ([facility] [place], [place] [address]Zildg gap [Moles/Vol]17 mmol/LNormal7-20UnMemorial Health System Selby General HospitalComment on above:Performed By: #### [id number] ####[facility] ([facility] [place], [place] [address]Qqgtllg [Mass/Vol]7.0 mg/dLLow8.6-10.3UnMemorial Health System Selby General HospitalComment on above:Performed By: #### [id number] ####[facility] ([facility])[address] [place], [place] [address]Edpcxlpe [Moles/Vol]100 mmol/LNormal 98-107UnMemorial Health System [facility] HospitalComment on above:Performed By: #### [id number] ####[facility] ([facility])[address] [place], [place] [address]FZ6 [Moles/Vol]16 mmol/GTav27-15VgawdurgbhMemorial Health System [facility]by General HospitalComment on above: Performed By: #### [id number] ####[facility] ([facility])[address] [place], [place] [address]Bsrupyjuks [Mass/Vol]3.23 mg/dLHigh0.70-1.30UnMemorial Health System [facility] General HospitalComment on above:Performed By: #### [id number] ####[facility] ([facility])[address] [place], [place] [address]MOCAZKBGRD FILTRATION RATE ML/MIN/1.73 SQ M.VNCLSSPKR69.0 mL/min/1.73m*2Low>60.0UnMemorial Health System [facility] Comment on above:Result Comment: [facility]???s estimated glomerular filtration rate (eGFR) will [...] anyone group of individuals.Performed By: #### [id number] ####[facility] ([facility])[address] [place], [place] [address]Yseqtea [Mass/Vol]151 mg/eIVyxy76-684AichozwvpqMemorial Health System [facility] General HospitalComment on above:Performed By: #### [id number] ####[facility] ([facility])[address] [place], [place] [address]Hnnvnznan [Moles/Vol]4.3 mmol/LNormal3.5-5.1UnMemorial Health System [facility] HospitalComment on above:Performed By: #### [id number] ####[facility] ([facility])[address] [place], [place] [address]Vhdmgy [Moles/Vol]129 mmol/LLow 136-145UnMemorial Health System [facility] HospitalComment on above:Performed By: #### [id number] ####[facility] ([facility])[address] [place], [place] [address]Fijl nitrogen [Mass/Vol]41 mg/dLHigh7-25UnMemorial Health System [facility] HospitalComment on above:Performed By: #### [id number] ####[facility] ([facility])[address] [place], [place] [address]SSWC NITROGEN/CREATININE (MASS RATIO) IN SER/PLAS12.7Normal [facility] HealthComment on above:Performed By: #### [id number] ####[facility] ([facility])[address] [place], [place] [address]Nycqu gap [Moles/Vol]19 mmol/LNormal7-20UnMemorial Health System [facility] HospitalComment on above:Performed By: #### [id number] ####[facility] ([facility])[address] [place], [place] [address]Zebbvan [Mass/Vol]6.1 mg/dLLow8.6-10.3UnMemorial Health System [facility] HospitalComment on above:Performed By: #### [id number] ####[facility] ([facility])[address] [place], [place] [address]Dzykytow [Moles/Vol]101 mmol/LNormal 98-107UnMemorial Health System [facility] HospitalComment on above:Performed By: #### [id number] ####[facility] ([facility])[address] [place] [address]ZC6 [Moles/Vol]13 mmol/LInvalid Interpretation Btpi08-12AreiohtmahMemorial Health System [facility] General HospitalComment on above:Performed By: #### [id number] ####[facility] ([facility])[address] [place] [address]Qbltebowgf [Mass/Vol]3.55 mg/dLHigh 0.70-1.30UnMemorial Health System [facility] HospitalComment on above:Performed By: #### [id number] ####[facility] ([facility])[address] [place] [address]CBAYTVZFSL FILTRATION RATE ML/MIN/1.73 SQ M.RSAASBBDL29.8 mL/min/1.73m*2Low>60.0UnMemorial Health System [facility] HospitalComment on above:Result Comment: [facility]???s estimated glomerular filtration rate (eGFR) will [...] group of individuals. Performed By: #### [id number] ####[facility] ([facility])[address] [place] [address]Ajnvigf [Mass/Vol]161 mg/wMXntw48-647TqhmxqthekMemorial Health System [facility] General HospitalComment on above:Performed By: #### [id number] ####[facility] ([facility])[address] [place] [address]Fbhqmhous [Moles/Vol]4.1 mmol/LNormal 3.5-5.1UnMemorial Health System [facility] General HospitalComment on above:Performed By: #### [id number] ####[facility] ([facility])[address] [place], [place] [address]Ibnjqa [Moles/Vol]129 mmol/KHkw077-989KozgnukpklMemorial Health System [facility] General HospitalComment on above:Performed By: #### [id number] ####[facility] ([facility])[address] [place], [place] [address]Mcwz nitrogen [Mass/Vol]44 mg/dLHigh7-25UnMemorial Health System [facility] HospitalComment on above:Performed By: #### [id number] ####[facility] ([facility])[address] [place], [place] [address]MDMJ NITROGEN/CREATININE (MASS RATIO) IN SER/PLAS12.4NormalUniversRegional Medical CenterComment on above: Performed By: #### [id number] ####[facility] ([facility])[address] [place], [place] [address]HSTcv 47-24-1626Czvpbtbhsmh distribution width (RBC) [Ratio]14.3 % Schyuz32.5-15.0UnMemorial Health System [facility] General HospitalComment on above:Performed By: #### [id number] ####[facility] ([facility])[address] [place] [address] ERYTHROCYTE MEAN CORPUSCULAR HEMOGLOBIN CONCENTRATION (G/DL) BY AADXYXTKF17.6 g/nJItyuar32.0-35.0UnMemorial Health System [facility] HospitalComment on above:Performed By: #### [id number] ####[facility] ([facility])[address] [place], [place] [address]Hqqpflpvab (Bld) [Volume fraction]27.2 %Low39.0-50.0UnMemorial Health System [facility] HospitalComment on above:Performed By: #### [id number] ####[facility] ([facility])[address] [place], [place] [address]Esjmwnzgnx (Bld) [Mass/Vol]9.4 g/dLLow 13.0-17.0UnMemorial Health System [facility] HospitalComment on above:Performed By: #### [id number] ####[facility] ([facility])[address] [place] [address]TQO (RBC) [Entitic mass]32.4 usYqzrto89.0-33.0UnMemorial Health System [facility] HospitalComment on above:Performed By: #### [id number] ####[facility] ([facility])[address] [address]HAM (RBC) [Entitic vol]93.8 gTRestyb57.0-98.0UnMemorial Health System [facility] HospitalComment on above:Performed By: #### [id number] ####[facility] ([facility])[address] [place] [address]TCEHWGLUC (10*3/UL) IN BLOOD AUTOMATED EDUAE153 10*3/yFCdqrbw901-790NvmdbypeudMemorial Health System [facility] Comment on above:Performed By: #### [id number] ####[facility] ([facility])[address] [place] [address]ULQ (Bld) [#/Vol]2.90 10*6/uLLow4.20-5.70UnMemorial Health System [facility] HospitalComment on above:Performed By: #### [id number] ####[facility] ([facility])[address] [place] [address]QBV (Bld) [#/Vol]19.72 10*3/uLHigh4.00-10.60UnMemorial Health System [facility] HospitalComment on above: Performed By: #### [id number] ####[facility] ([facility])[address] [place] [address]PFGWGRLMEOUBX METABOLIC PANELon 83-53-1277Ymnioyx [Mass/Vol] 3.1 g/dLLow3.5-5.7UnMemorial Health System [facility] HospitalComment on above:Performed By: #### [id number] ####[facility] ([facility])[address] [place] [address] ALP [Catalytic activity/Vol]62 U/GBwckgn48-471MhoysmovhqMemorial Health System [facility] HospitalComment on above:Performed By: #### [id number] ####[facility] ([facility])[address] [place], [place] [address]WCF [Catalytic activity/Vol]314 U/L High7-52UnMemorial Health System [facility] HospitalComment on above:Performed By: #### [id number] ####[facility] ([facility])[address] [place], [place] [address]Qyqwo gap [Moles/Vol]15 mmol/LNormal7-20UnMemorial Health System [facility] HospitalComment on above:Performed By: #### [id number] ####[facility] ([facility])[address] [place], [place] [address]QJC [Catalytic activity/Vol]514 U/SRdnw61-87FbumosxofyMemorial Health System [facility] HospitalComment on above:Performed By: #### [id number] ####[facility] ([facility])[address] [place], [place] [address]Lcvfelcwm [Mass/Vol]0.6 mg/dL Normal0.3-1.0UnMemorial Health System [facility] General HospitalComment on above:Performed By: #### [id number] ####[facility] ([facility])[address] [place] [address] Calcium [Mass/Vol]6.9 mg/dLLow8.6-10.3UnMemorial Health System [facility] HospitalComment on above:Performed By: #### [id number] ####[facility] ([facility])[address] [place], [place] [address]Fvkrgxil [Moles/Vol]98 mmol/MVtkckh03-758DssmfghyhgMemorial Health System [facility] HospitalComment on above:Performed By: #### [id number] ####[facility] ([facility])[address] [place], [place] [address]CK9 [Moles/Vol]22 mmol/VUookus20-03 [facility] HealthComment on above:Performed By: #### [id number] ####[facility] ([facility])[address] [place], [place] [address]Mbzvgvqrrj [Mass/Vol]3.18 mg/dLHigh0.70-1.30UnMemorial Health System [facility] HospitalComment on above:Performed By: #### [id number] ####[facility] ([facility])[address] [place] [address]LRAHNGGJXI FILTRATION RATE ML/MIN/1.73 SQ M.WQRWMNLCR60.3 mL/min/1.73m*2Low>60.0UnMemorial Health System [facility] HospitalComment on above:Result Comment: [facility]???s estimated glomerular filtration rate (eGFR) will [...] anyone group of individuals.Performed By: #### [id number] ####[facility] ([facility])[address] [place] [address]Mqqhzlc [Mass/Vol]132 mg/dMGuui02-645YkxpnccfyrMemorial Health System [facility] HospitalComment on above:Performed By: #### [id number] ####[facility] ([facility])[address] [place] [address]Nxhryknoc [Moles/Vol]3.6 mmol/L Normal3.5-5.1UnMemorial Health System [facility] HospitalComment on above:Performed By: #### [id number] ####[facility] ([facility])[address] [place] [address] Protein [Mass/Vol]5.5 g/dLLow6.0-8.3UnMemorial Health System [facility] HospitalComment on above:Performed By: #### [id number] ####[facility] ([facility])[address] [place], [place] [address]Naoidl [Moles/Vol]131 mmol/ZFwv314-853AxtdbfaevdMemorial Health System [facility] General HospitalComment on above:Performed By: #### [id number] ####[facility] ([facility])[address] [place], [place] [address]Dgjf nitrogen [Mass/Vol]43 mg/dLHigh 7-25UnMemorial Health System [facility] HospitalComment on above:Performed By: #### [id number] ####[facility] ([facility])[address] [place], [place] [address]CAEX NITROGEN/CREATININE (MASS RATIO) IN SER/PLAS13.5NormalUniversRegional Medical CenterComment on above:Performed By: #### [id number] ####[facility] ([facility])[address] [place], [place] [address]ARFIAOHYVek 52-19-4066Ktupwoyvv [Mass/Vol]1.8 mg/dLLow1.9-2.7UnMemorial Health System [facility] HospitalComment on above:Performed By: #### [id number] ####[facility] ([facility])[address] [place], [place] [address]Fmbkmpnuu [Mass/Vol]2.0 mg/dLNormal1.9-2.7UnMemorial Health System [facility] HospitalComment on above:Performed By: #### [id number] ####[facility] ([facility])[address] [place], [place] [address]Mtuahvtbd [Mass/Vol]2.0 mg/dLNormal1.9-2.7UnMemorial Health System [facility] HospitalComment on above:Performed By: #### [id number] ####[facility] ([facility])[address] [place] [address] Magnesium [Mass/Vol]2.1 mg/dLNormal1.9-2.7UnMemorial Health System [facility] Comment on above:Performed By: #### [id number] ####[facility] ([facility])[address] [place], [place] [address]Lwdcrykov [Mass/Vol]1.9 mg/dLNormal1.9-2.7 [facility] HealthComment on above:Performed By: #### [id number] ####[facility] ([facility])[address] [place], [place] [address]Wxuguzmtn [Mass/Vol]1.9 mg/dLNormal1.9-2.7UnMemorial Health System [facility] HospitalComment on above:Performed By: #### [id number] ####[facility] ([facility])[address] [place], [place] [address]IZLGJFGGADdk 92-25-4882Gzxbwknpn [Mass/Vol]3.3 mg/dLNormal 2.5-5.0UnMemorial Health System [facility] HospitalComment on above:Performed By: #### [id number] ####[facility] ([facility])[address] [place], [place] [address]Abwqmfhqn [Mass/Vol]4.1 mg/dLNormal2.5-5.0UnMemorial Health System [facility] HospitalComment on above:Performed By: #### [id number] ####[facility] ([facility])[address] [place], [place] [address]Frbkifetl [Mass/Vol]4.7 mg/dLNormal2.5-5.0UnMemorial Health System [facility] HospitalComment on above:Performed By: #### [id number] ####[facility] ([facility])[address] [place], [place] [address]Yndobejqt [Mass/Vol]4.9 mg/dLNormal2.5-5.0UnMemorial Health System [facility] HospitalComment on above:Performed By: #### [id number] ####[facility] ([facility])[address] [place] [address] Magnesium [Mass/Vol]4.4 mg/dLNormal2.5-5.0UnMemorial Health System [facility] Comment on above:Performed By: #### [id number] ####[facility] ([facility])[address] [place], [place] [address]Fqrqeaiec [Mass/Vol]3.7 mg/dLNormal2.5-5.0 [facility] HealthComment on above:Performed By: #### [id number] ####[facility] ([facility])[address] [place], [place] [address]SUWD GLUCOSE METER UNSOLICITED RESULTSon 74-93-5218Eipbfyo [Mass/Vol]88 mg/hIUpffnr23-136 [facility] HealthComment on above:Order Comment: Waived Testing in the ED is performed under the ED CLIA certificate #[id number].Result Comment: [id number] By: #### [id number] ####[facility] ([facility])[address] [id number] [id number] patient is Moderately Unstable - Medium risk of patient condition declining or worsening The patient's goals for the shift include comfort The clinical goals for the shift include VSSNormalUniversity of Memorial Hermann Katy HospitalBASIC METABOLIC PANELon 82-09-7200Etavw gap [Moles/Vol]20 mmol/LNormal7-20 [facility] HealthComment on above:Performed By: #### [id number] ####[facility] ([facility])[address] [place] [address]Tqbalfi [Mass/Vol]6.5 mg/dLLow8.6-10.3UnMemorial Health System [facility] HospitalComment on above:Performed By: #### [id number] ####[facility] ([facility])[address] [place] [address]Tadsnftj [Moles/Vol]98 mmol/JCkjpqz37-248KevmzuyrsgMemorial Health System [facility] HospitalComment on above:Performed By: #### [id number] ####[facility] ([facility])[address] [place] [address]CM0 [Moles/Vol]15 mmol/BTls16-64 [facility] HealthComment on above:Performed By: #### [id number] ####[facility] ([facility])[address] [place] [address]Uiwbzmnkqg [Mass/Vol]3.53 mg/dLHigh0.70-1.30UnMemorial Health System [facility] HospitalComment on above:Performed By: #### [id number] ####[facility] ([facility])[address] [place] [address]LSMQJADGTV FILTRATION RATE ML/MIN/1.73 SQ M.LBXVMUZIO70.9 mL/min/1.73m*2Low>60.0UnMemorial Health System [facility] HospitalComment on above:Result Comment: [facility]???s estimated glomerular filtration rate (eGFR) will [...] anyone group of individuals.Performed By: #### [id number] ####[facility] ([facility])[address] [place], [place] [address]Amuglqg [Mass/Vol]140 mg/yXHgpo10-150ZxxknzjpkpMemorial Health System [facility] HospitalComment on above:Performed By: #### [id number] ####[facility] ([facility])[address] [place], [place] [address]Slmydxwny [Moles/Vol]4.6 mmol/L Normal3.5-5.1UnMemorial Health System [facility] HospitalComment on above:Performed By: #### [id number] ####[facility] ([facility])[address] [place] [address] Sodium [Moles/Vol]128 mmol/QHbk123-211BpzsgnyfmnMemorial Health System [facility] HospitalComment on above:Performed By: #### [id number] ####[facility] ([facility])[address] [place], [place] [address]Rvxf nitrogen [Mass/Vol]47 mg/dLHigh7-25UnMemorial Health System [facility] HospitalComment on above:Performed By: #### [id number] ####[facility] ([facility])[address] [place], [place] [address]VHKL NITROGEN/CREATININE (MASS RATIO) IN SER/PLAS13.3NormalUniversRegional Medical CenterComment on above: Performed By: #### [id number] ####[facility] ([facility])[address] [place], [place] [address]Vypuo gap [Moles/Vol]18 mmol/LNormal7-20UnMemorial Health System [facility] HospitalComment on above:Performed By: #### [id number] ####[facility] ([facility])[address] [place], [place] [address]Pgnufok [Mass/Vol]6.7 mg/dLLow8.6-10.3 [facility] HealthComment on above:Performed By: #### [id number] ####[facility] ([facility])[address] [place], [place] [address]Rhyeghwm [Moles/Vol]100 mmol/JPqqmtp81-410PprsxhotymMemorial Health System [facility] HospitalComment on above:Performed By: #### [id number] ####[facility] ([facility])[address] [place], [place] [address]QM0 [Moles/Vol]16 mmol/NVze97-99SgzlmnkfayMemorial Health System [facility] HospitalComment on above:Performed By: #### [id number] ####[facility] ([facility])[address] [place], [place] [address]Knlvcyaqtj [Mass/Vol]3.57 mg/dLHigh 0.70-1.30UnMemorial Health System [facility] HospitalComment on above:Performed By: #### [id number] ####[facility] ([facility])[address] [place], [place] [address]ZCGMBEVFGF FILTRATION RATE ML/MIN/1.73 SQ M.JFHCOCGKO25.7 mL/min/1.73m*2Low>60.0UnMemorial Health System [facility] HospitalComment on above:Result Comment: [facility]???s estimated glomerular filtration rate (eGFR) will [...] group of individuals. Performed By: #### [id number] ####[facility] ([facility])[address] [place], [place] [address]Sbktcqh [Mass/Vol]134 mg/jYIspd24-941GxpejdojakMemorial Health System [facility] HospitalComment on above:Performed By: #### [id number] ####[facility] ([facility])[address] [place], [place] [address]Gogifcemx [Moles/Vol]4.5 mmol/LNormal 3.5-5.1UnMemorial Health System [facility] HospitalComment on above:Performed By: #### [id number] ####[facility] ([facility])[address] [place], [place] [address]Otxssw [Moles/Vol]129 mmol/QRue233-695PhzpapzyxpMemorial Health System [facility] HospitalComment on above:Performed By: #### [id number] ####[facility] ([facility])[address] [place], [place] [address]Nsaq nitrogen [Mass/Vol]46 mg/dLHigh7-25UnMemorial Health System [facility] HospitalComment on above:Performed By: #### [id number] ####[facility] ([facility])[address] [place], [place] [address]DROR NITROGEN/CREATININE (MASS RATIO) IN SER/PLAS12.9NormalUniversRegional Medical CenterComment on above: Performed By: #### [id number] ####[facility] ([facility])[address] [place], [place] [address]Sctpu gap [Moles/Vol]18 mmol/LNormal7-20UnMemorial Health System [facility] HospitalComment on above:Performed By: #### [id number] ####[facility] ([facility])[address] [place], [place] [address]Gpitpfn [Mass/Vol]7.1 mg/dLLow8.6-10.3 [facility] HealthComment on above:Performed By: #### [id number] ####[facility] ([facility])[address] [place], [place] [address]Erodiuqr [Moles/Vol]98 mmol/MCaaxey78-556YfuzvqdhhgMemorial Health System [facility] HospitalComment on above:Performed By: #### [id number] ####[facility] ([facility])[address] [place], [place] [address]LU1 [Moles/Vol]16 mmol/NLav26-64RnyimyqdhfMemorial Health System [facility] HospitalComment on above:Performed By: #### [id number] ####[facility] ([facility])[address] [place] [place] [address]Illzolbaes [Mass/Vol]3.03 mg/dLHigh 0.70-1.30UnMemorial Health System [facility] HospitalComment on above:Performed By: #### [id number] ####[facility] ([facility])[address] [place] [address]UDYRFJJXIB FILTRATION RATE ML/MIN/1.73 SQ M.SXDNVQSGF74.5 mL/min/1.73m*2Low>60.0UnMemorial Health System [facility] HospitalComment on above:Result Comment: [facility]???s estimated glomerular filtration rate (eGFR) will [...] group of individuals. Performed By: #### [id number] ####[facility] ([facility])[address] [place] [address]Vcvttxo [Mass/Vol]175 mg/yMEowr15-018MeccthsexmMemorial Health System [facility] HospitalComment on above:Performed By: #### [id number] ####[facility] ([facility])[address] [place], [place] [address]Uqdsbsdyx [Moles/Vol]4.5 mmol/LNormal 3.5-5.1UnMemorial Health System [facility] HospitalComment on above:Performed By: #### [id number] ####[facility] ([facility])[address] [place] [address]Fmveuw [Moles/Vol]127 mmol/TEoe729-019YwmkixgzqhMemorial Health System [facility] HospitalComment on above:Performed By: #### [id number] ####[facility] ([facility])[address] [address]Rtht nitrogen [Mass/Vol]41 mg/dLHigh7-25UnMemorial Health System [facility] HospitalComment on above:Performed By: #### [id number] ####[facility] ([facility])[address] [address]UFQO NITROGEN/CREATININE (MASS RATIO) IN SER/PLAS13.5NormalUniversRegional Medical CenterComment on above: Performed By: #### [id number] ####[facility] ([facility])[address] [address]UPDct [id number] distribution width (RBC) [Ratio]14.0 % Gzicxx27.5-15.0UnMemorial Health System Selby General HospitalComment on above:Performed By: #### [id number] ####[facility] ([facility])[address] [place] [address] ERYTHROCYTE MEAN CORPUSCULAR HEMOGLOBIN CONCENTRATION (G/DL) BY KGAATQZXX12.0 g/pYEdypbm44.0-35.0UnMemorial Health System Selby General HospitalComment on above:Performed By: #### [id number] ####[facility] ([facility])[address] [place] [address]Ibadbvfvcs (Bld) [Volume fraction]32.0 %Low39.0-50.0UnMemorial Health System Selby General HospitalComment on above:Performed By: #### [id number] ####[facility] [facility] [place] [address]Itrxlkwiou (Bld) [Mass/Vol]11.2 g/dL Low13.0-17.0UnMemorial Health System Selby General HospitalComment on above:Performed By: #### [id number] ####[facility] ([facility])[address] [place] [address]XJM (RBC) [Entitic mass]32.0 tnJojokl18.0-33.0UnMemorial [facility] Hospital Comment on above:Performed By: #### [id number] ####[facility] ([facility])[address] [address]VBB (RBC) [Entitic vol]91.4 mPFnrrih00.0-98.0 [facility] HealthComment on above:Performed By: #### [id number] ####[facility] ([facility])[address] [address]CEUIGKWON (10*3/UL) IN BLOOD AUTOMATED [id number] 10*3/mKAyewfn124-388NpkfxlgddcMemorial Health System Selby General HospitalComment on above:Performed By: #### [id number] ####[facility] ([facility])[address] [address]GZC (Bld) [#/Vol]3.50 10*6/uLLow 4.20-5.70UnMemorial Health System Selby General HospitalComment on above:Performed By: #### [id number] ####[facility] ([facility])[address] [address]RDU (Bld) [#/Vol]8.21 10*3/uLNormal4.00-10.60UnMemorial Health System Selby General HospitalComment on above:Performed By: #### [id number] ####[facility] ([facility])[address] [address]EB-JVZHRFVWrf 70-05-3590Gpvyinhwqo (Bld) [Mass/Vol]11.5 g/dL NormalUnMemorial Health System Selby General HospitalComment on above:Performed By: #### [id number] ####[facility] [id number] [place] [address] USAOxygen saturation in Blood36.4 %NormalUnMemorial Health System Selby General HospitalComment on above:Performed By: #### [id number] ####[facility] [id number] [place] [address] USAOXYGENATED HEMOGLOBIN IN BLOOD36.0 %NormalMercy HealthComment on above:Performed By: #### [id number] ####[facility] [id number] [place] [address] USAHEMOGLOBIN AND HEMATOCRIT, BLOODon 87-32-7766Qezoldteqd (Bld) [Volume fraction]30.2 %Low 39.0-50.0UnMemorial Health System Selby General HospitalComment on above:Performed By: #### [id number] ####[facility] ([facility])[address] [place] [address] Hemoglobin (Bld) [Mass/Vol]10.6 g/dLLow13.0-17.0UnMemorial Health System Selby General HospitalComment on above:Performed By: #### [id number] ####[facility] ([facility])[address] [place] [address]YWVGFUBRHso 08-74-4492Crucyoqou [Mass/Vol]1.8 mg/dLLow1.9-2.7UnMemorial Health System Selby General HospitalComment on above:Performed By: #### [id number] ####[facility] ([facility])[address], [place] [address]Vmlzmprjv [Mass/Vol]1.6 mg/dLLow1.9-2.7UnMemorial Health System Selby General HospitalComment on above:Performed By: #### [id number] ####[facility] ([facility])[address], [place] [address]Iwjnuaqow [Mass/Vol]1.9 mg/dLNormal 1.9-2.7UnMemorial Health System Selby General HospitalComment on above:Performed By: #### [id number] ####[facility] ([facility])[address] [place] [address] PHOSPHORUSon 00-77-4465Sztwotffy [Mass/Vol]3.0 mg/dLNormal2.5-5.0UnMemorial Health System Sel[facility] General HospitalComment on above:Performed By: #### [id number] ####[facility] ([facility])[address] [place], [place] [address]Zzztfhwob [Mass/Vol]3.5 mg/dLNormal2.5-5.0UnMemorial Health System Selby General HospitalComment on above:Performed By: #### [id number] ####[facility] ([facility] [place] [address] POCT GLUCOSE METER UNSOLICITED RESULTSon 86-91-1808Suwbdeq [Mass/Vol]148 mg/dL Ocqh15-557LhohltbvqnMemorial Health System Selby General HospitalComment on above:Order Comment: Waived Testing in the ED is performed under the ED CLIA certificate #[id number]. Result Comment: [id number] By: #### [id number] ####[facility] ([facility])[address] [place], [place] [address]Eralehw [Mass/Vol]153 mg/nBTkgp62-078 [facility] HealthComment on above:Order Comment: Waived Testing in the ED is performed under the ED CLIA certificate #[id number].Result Comment: [id number] By: #### [id number] ####[facility] ([facility])[address], [place] [address]Tuibnjl [Mass/Vol]170 mg/xEEipx60-114XqspzcgyswMemorial Health System Selby General HospitalComment on above:Order Comment: Waived Testing in the ED is performed under the ED CLIA certificate #[id number].Result Comment: [id number] Performed By: #### [id number] ####[facility] ([facility])[address] [place], [place] [address]BJYRZ METABOLIC PANELon 90-61-4697Wzgfd gap [Moles/Vol]18 mmol/LNormal7-20UnMemorial Health System Selby General HospitalComment on above:Performed By: #### [id number] ####[facility] ([facility])[address] [place] [address] Calcium [Mass/Vol]6.8 mg/dLLow8.6-10.3UnMemorial Health System Selby General HospitalComment on above:Performed By: #### [id number] ####[facility] ([facility])[address] [place], [place] [address]Mhwdnsfr [Moles/Vol]98 mmol/ZSvokxh03-806ShatxqjouwMemorial Health System Selby General HospitalComment on above:Performed By: #### [id number] ####[facility] ([facility])[address] [place], [place] [address]PF8 [Moles/Vol]15 mmol/UKyp48-49 [facility] HealthComment on above:Performed By: #### [id number] ####[facility] ([facility])[address] [place] [address]Itxzqycoba [Mass/Vol]2.92 mg/dLHigh0.70-1.30UnMemorial Health System [facility] General HospitalComment on above:Performed By: #### [id number] ####[facility] ([facility])[address] [place] [address]ZTINGSLULZ FILTRATION RATE ML/MIN/1.73 SQ M.QUNRVPPPF18.5 mL/min/1.73m*2Low>60.0UnMemorial Health System Selby General HospitalComment on above:Result Comment: [facility]???s estimated glomerular filtration rate (eGFR) will [...] anyone group of individuals.Performed By: #### [id number] ####[facility] ([facility])[address] [place] [address]Qudtzbj [Mass/Vol]181 mg/jGUvwn93-793JbmbrlpjnwMemorial Health System Selby General HospitalComment on above:Performed By: #### [id number] ####[facility] ([facility])[address] [place] [address]Ijzkczmqr [Moles/Vol]4.3 mmol/L Normal3.5-5.1UnMemorial Health System Selby General HospitalComment on above:Performed By: #### [id number] ####[facility] ([facility])[address] [place] [address] Sodium [Moles/Vol]127 mmol/ZZbl244-739MrrhhpmfmoMemorial Health System Selby General HospitalComment on above:Performed By: #### [id number] ####[facility] ([facility])[address] [place], [place] [address]Ciso nitrogen [Mass/Vol]41 mg/dLHigh7-25UnMemorial Health System [facility] General HospitalComment on above:Performed By: #### [id number] ####[facility] ([facility])[address] [place], [place] [address]IOLV NITROGEN/CREATININE (MASS RATIO) IN SER/PLAS14.0NormalUniversRegional Medical CenterComment on above: Performed By: #### [id number] ####[facility] ([facility])[address] [place], [place] [address]Scoot gap [Moles/Vol]16 mmol/LNormal7-20UnMemorial Health System [facility] General HospitalComment on above:Performed By: #### [id number] ####[facility] ([facility])[address] [place], [place] [address]Drhecec [Mass/Vol]7.1 mg/dLLow8.6-10.3 [facility] HealthComment on above:Performed By: #### [id number] ####[facility] ([facility])[address] [place], [place] [address]Edhqjjes [Moles/Vol]97 mmol/GIfa68-307RoicgnmqafMemorial Health System Selby General HospitalComment on above:Performed By: #### [id number] ####[facility] ([facility])[address] [place], [place] [address]FJ9 [Moles/Vol]18 mmol/RLyo92-49UvoiojzhaiMemorial Health System Selby General HospitalComment on above:Performed By: #### [id number] ####[facility] ([facility])[address] [place], [place] [address]Yvllahrzag [Mass/Vol]2.84 mg/dLHigh 0.70-1.30UnMemorial Health System [facility]by General HospitalComment on above:Performed By: #### [id number] ####[facility] ([facility])[address] [place], [place] [address]PYRIRLXCUX FILTRATION RATE ML/MIN/1.73 SQ M.JYEACVGKV74.3 mL/min/1.73m*2Low>60.0UnMemorial Health System Selby General HospitalComment on above:Result Comment: [facility]???s estimated glomerular filtration rate (eGFR) will [...] group of individuals. Performed By: #### [id number] ####[facility] ([facility])[address] [place], [place] [address]Dkelgda [Mass/Vol]168 mg/wFWjhn57-688PxibezofwpMemorial Health System Selby General HospitalComment on above:Performed By: #### [id number] ####[facility] ([facility])[address] [place], [place] [address]Pjxdydlup [Moles/Vol]4.1 mmol/LNormal 3.5-5.1UnMemorial Health System [facility] General HospitalComment on above:Performed By: #### [id number] ####[facility] ([facility])[address], [place] [address]Yzqzip [Moles/Vol]127 mmol/FNjc843-473WdrstyoyouMemorial Health System Selby General HospitalComment on above:Performed By: #### [id number] ####[facility] ([facility])[address] [place], [place] [address]Xnjm nitrogen [Mass/Vol]39 mg/dLHigh7-25UnMemorial Health System [facility] General HospitalComment on above:Performed By: #### [id number] ####[facility] ([facility])[address] [place], [place] [address]HVGR NITROGEN/CREATININE (MASS RATIO) IN SER/PLAS13.7NormalUniversRegional Medical CenterComment on above: Performed By: #### [id number] ####[facility] ([facility])[address] [place], [place] [address]Epdlw gap [Moles/Vol]14 mmol/LNormal7-20UnMemorial Health System [facility] General HospitalComment on above:Performed By: #### [id number] ####[facility] ([facility])[address] [place] [address]Kpwvuwd [Mass/Vol]7.2 mg/dLLow8.6-10.3 [facility] HealthComment on above:Performed By: #### [id number] ####[facility] ([facility])[address] [place] [address]Bwgqkaor [Moles/Vol]100 mmol/ZYaruha07-772IborppwghcMemorial Health System Selby General HospitalComment on above:Performed By: #### [id number] ####[facility] ([facility])[address] [place] [address]CA6 [Moles/Vol]19 mmol/KAob02-37WpdwvbakayMemorial Health System Selby General HospitalComment on above:Performed By: #### [id number] ####[facility] ([facility])[address] [place] [address]Ijkazrrafd [Mass/Vol]2.83 mg/dLHigh 0.70-1.30UnMemorial Health System [facility] General HospitalComment on above:Performed By: #### [id number] ####[facility] ([facility])[address] [place] [address]AHYHOZIFHK FILTRATION RATE ML/MIN/1.73 SQ M.LBEEJFELT28.4 mL/min/1.73m*2Low>60.0UnMemorial Health System [facility] General HospitalComment on above:Result Comment: [facility]???s estimated glomerular filtration rate (eGFR) will [...] group of individuals. Performed By: #### [id number] ####[facility] ([facility])[address], [place] [address]Ewgrcki [Mass/Vol]128 mg/gYUlmw48-465CdiobsehmdMemorial Health System Selby General HospitalComment on above:Performed By: #### [id number] ####[facility] ([facility])[address] [place] [address]Tqebwpwtn [Moles/Vol]4.2 mmol/LNormal 3.5-5.1UnMemorial Health System Selby General HospitalComment on above:Performed By: #### [id number] ####[facility] ([facility])[address] [place] [address]Njvfld [Moles/Vol]129 mmol/NLat932-065QjkiiqlsjcMemorial Health System Selby General HospitalComment on above:Performed By: #### [id number] ####[facility] ([facility])[address], [place] [address]Tvgv nitrogen [Mass/Vol]40 mg/dLHigh7-25UnMemorial Health System [facility] General HospitalComment on above:Performed By: #### [id number] ####[facility] ([facility])[address], [place] [address]ESOK NITROGEN/CREATININE (MASS RATIO) IN SER/PLAS14.1NormalUnMemorial Health System Selby General HospitalComment on above: Performed By: #### [id number] ####[facility] ([facility])[address] [place] [address]SEKit 54-94-1626Fiyswhfmuoq distribution width (RBC) [Ratio]14.0 % Jxtkyv96.5-15.0UnMemorial Health System Selby General HospitalComment on above:Performed By: #### [id number] ####[facility] ([facility])[address] [place] [address] ERYTHROCYTE MEAN CORPUSCULAR HEMOGLOBIN CONCENTRATION (G/DL) BY TVPRHQPOY22.8 g/iQObdecn43.0-35.0UnMemorial Health System Selby General HospitalComment on above:Performed By: #### [id number] ####[facility] ([facility])[address], [place] [address]Dduzfpbrfk (Bld) [Volume fraction]29.3 %Low39.0-50.0UnMemorial Health System [facility] General HospitalComment on above:Performed By: #### [id number] ####[facility] ([facility])[address] [address]Jikvejgihh (Bld) [Mass/Vol]10.2 g/dL Low13.0-17.0UnMemorial Health System [facility]by General HospitalComment on above:Performed By: #### [id number] ####[facility] ([facility])[address] [address]XOY (RBC) [Entitic mass]32.2 lqHtkfzs12.0-33.0UnMemorial [facility] Comment on above:Performed By: #### [id number] ####[facility] ([facility])[address] [address]GWD (RBC) [Entitic vol]92.4 gCXqbpzo40.0-98.0 [facility] HealthComment on above:Performed By: #### [id number] ####[facility] ([facility])[address] [place] [address]COXBDPARO (10*3/UL) IN BLOOD AUTOMATED CAXIE134 10*3/rCVowdyq863-747XbbebayzfzMemorial Health System Selby General HospitalComment on above:Performed By: #### [id number] ####[facility] ([facility])[address] [place] [address]PTV (Bld) [#/Vol]3.17 10*6/uLLow 4.20-5.70UnMemorial Health System [facility] General HospitalComment on above:Performed By: #### [id number] ####[facility] ([facility])[address] [place] [address]TMZ (Bld) [#/Vol]6.84 10*3/uLNormal4.00-10.60UnMemorial Health System [facility] General HospitalComment on above:Performed By: #### [id number] ####[facility] ([facility])[address] [place] [address]AM-DYLKJFKNzi 35-53-6920Ygiwgvyoxj (Bld) [Mass/Vol]10.9 g/dL NormalUnMemorial Health System Selby General HospitalComment on above:Performed By: #### [id number] ####[facility] [id number] [place] [address] USAOxygen saturation in Blood59.6 %NormalUnMemorial Health System Selby General HospitalComment on above:Performed By: #### [id number] ####[facility] [id number] [place] [address] USAOXYGENATED HEMOGLOBIN IN BLOOD58.7 %NormalUnMemorial Health System Selby General HospitalComment on above:Performed By: #### [id number] ####[facility] [id number] [place] [address] USACREATININE, URINE, RANDOMon 19-59-4794Hvjkvuesen (U) [Mass/Vol]83.0 mg/tJKrgtkz88-417UmxxgadidhMemorial Health System Selby General HospitalComment on above:Performed By: #### [id number] ####[facility] ([facility])[address], [place] [address]UIXCPFDIIac 04-26-2025 Magnesium [Mass/Vol]2.0 mg/dLNormal1.9-2.7UnMemorial [facility] Comment on above:Performed By: #### [id number] ####[facility] ([facility])[address] [place], [place] [address]Lixzgkqfc [Mass/Vol]2.1 mg/dLNormal1.9-2.7 [facility] HealthComment on above:Performed By: #### [id number] ####[facility] ([facility])[address] [place], [place] [address]Hzberzsol [Mass/Vol]1.8 mg/dLLow1.9-2.7UnMemorial Health System [facility] General HospitalComment on above:Performed By: #### [id number] ####[facility] ([facility])[address] [place], [place] [address]VLPBCGCPRRgv 73-72-3474Uvlqybqzq [Mass/Vol]3.4 mg/dLNormal 2.5-5.0UnMemorial Health System [facility] General HospitalComment on above:Performed By: #### [id number] ####[facility] ([facility])[address] [place], [place] [address]Ouahmxkmo [Mass/Vol]2.8 mg/dLNormal2.5-5.0UnMemorial Health System [facility] General HospitalComment on above:Performed By: #### [id number] ####[facility] ([facility])[address] [place], [place] [address]Jgkiupoas [Mass/Vol]2.6 mg/dLNormal2.5-5.0UnMemorial Health System [facility] General HospitalComment on above:Performed By: #### [id number] ####[facility] ([facility])[address] [place], [place] [address]DGNGLD, URINE, RANDOMon 86-49-4771Kntxpk (U) [Moles/Vol]92 mmol/LNormalUnMemorial Health System Selby General HospitalComment on above:Performed By: #### [id number] ####[facility] ([facility])[address] [place], [place] [address]BWFJ NITROGEN, URINEon 70-49-1827Gxan nitrogen (U) [Mass/Vol]237 mg/dLNormalUniKettering Health DaytonComment on above:Performed By: #### [id number] ####[facility] ([facility])[address] [place], [place] [address]HWGKUBLMCTwf 47-98-4319ZOCWBWZWE, TOTAL PRESENCE IN URINE NegativeNormalNegativeUnMemorial Health System Selby General HospitalComment on above:Order Comment: Microscopics not performed on urines with negative chemical reactions unless requested on original order.Performed By: #### [id number] ####[facility] ([facility])[address] [place], [place] [address]Snsrdiq (U)ClearNormalClear [facility] HealthComment on above:Order Comment: Microscopics not performed on urines with negative chemical reactions unless requested on original order.Performed By: #### [id number] ####[facility] ([facility])[address] [place], [place] [address]Fvjfu (U)Light-YellowNormalColorless, Yellow, Light-YellowUnMemorial Health System Selby General HospitalComment on above:Order Comment: Microscopics not performed on urines with negative chemical reactions unless requested on original order.Performed By: #### [id number] ####[facility] ([facility])[address] [place], [place] [address]Wxfzwsi (U) [Mass/Vol]250 mg/dL AbnormalNormalUniversRegional Medical CenterComment on above:Order Comment: Microscopics not performed on urines with negative chemical reactions unless requested on original order.Performed By: #### [id number] ####[facility] ([facility])[address] [place], [place] [address]ABIUKEKLAH PRESENCE IN URINENegative NormalNegativeMercy HealthComment on above:Order Comment: Microscopics not performed on urines with negative chemical reactions unless requested on original order.Performed By: #### [id number] ####[facility] ([facility])[address] [place] [address]Emxyfci Ql (U)NegativeNormalNegative [facility] HealthComment on above:Order Comment: Microscopics not performed on urines with negative chemical reactions unless requested on original order.Performed By: #### [id number] ####[facility] ([facility])[address] [place], [place] [address]ENVXXUVIP ESTERASE PRESENCE IN URINE BY TEST STRIP NegativeSaint Alexius HospitalalNegativeMercy HealthComment on above:Order Comment: Microscopics not performed on urines with negative chemical reactions unless requested on original order.Performed By: #### [id number] ####[facility] ([facility])[address] [place], [place] [address]ICCEMGD PRESENCE IN URINENegative NormalNegativeMercy HealthComment on above:Order Comment: Microscopics not performed on urines with negative chemical reactions unless requested on original order.Performed By: #### [id number] ####[facility] ([facility])[address] [place], [place] [address]lP (U)5.0 [pH]Normal5.0-8.0UnMemorial Health System Selby General HospitalComment on above:Order Comment: Microscopics not performed on urines with negative chemical reactions unless requested on original order.Performed By: #### [id number] ####[facility] ([facility])[address] [address]Kjcsgol (U) [Mass/Vol]NegativeNormalNegative [facility] HealthComment on above:Order Comment: Microscopics not performed on urines with negative chemical reactions unless requested on original order.Performed By: #### [id number] ####[facility] ([facility])[address] [address]Asllujyu gravity (U) [Rel density]1.013Normal 1.010-1.030UnMemorial Health System Selby General HospitalComment on above:Order Comment: Microscopics not performed on urines with negative chemical reactions unless requested on original order.Performed By: #### [id number] ####[facility] ([facility])[address], [place] [address]ZGIOQUHBNXCG (MG/DL) IN URINENormal NormalNormalUniKettering Health DaytonComment on above:Order Comment: Microscopics not performed on urines with negative chemical reactions unless requested on original order.Performed By: #### [id number] ####[facility] ([facility])[address] [place] [address]km 31-17-257821GthmgmListjetoew of Toledo Medical CenterBASIC METABOLIC PANELon 32-21-7579Jpgbs gap [Moles/Vol]12 mmol/LNormal7-20UnMemorial Health System Selby General HospitalComment on above:Performed By: #### [id number] ####[facility] ([facility])[address] [place] [address] Calcium [Mass/Vol]7.1 mg/dLLow8.6-10.3UnMemorial Health System Selby General HospitalComment on above:Performed By: #### [id number] ####[facility] ([facility])[address] [place], [place] [address]Hosilkqc [Moles/Vol]99 mmol/RXyelzk34-961VhsvlissewMemorial Health System Selby General HospitalComment on above:Performed By: #### [id number] ####[facility] ([facility])[address] [place] [address]HE4 [Moles/Vol]24 mmol/VFpwdnr84-19 [facility] HealthComment on above:Performed By: #### [id number] ####[facility] ([facility])[address] [place] [address]Xntqrkfikg [Mass/Vol]2.96 mg/dLHigh0.70-1.30UnMemorial Health System Selby General HospitalComment on above:Performed By: #### [id number] ####[facility] ([facility])[address] [place] [address]DVMBDEMINI FILTRATION RATE ML/MIN/1.73 SQ M.KXTLDKIZZ96.2 mL/min/1.73m*2Low>60.0UnMemorial Health System Selby General HospitalComment on above:Result Comment: [facility]s estimated glomerular filtration rate (eGFR) will [...] anyone group of individuals.Performed By: #### [id number] ####[facility] ([facility])[address] [place] [address]Msgkddw [Mass/Vol]130 mg/hGUplk50-496NgsclttcjyMemorial Health System Selby General HospitalComment on above:Performed By: #### [id number] ####[facility] ([facility])[address] [place] [address]Vgixgnrin [Moles/Vol]3.4 mmol/L Low3.5-5.1UnMemorial Health System Selby General HospitalComment on above:Performed By: #### [id number] ####[facility] ([facility])[address] [place], [place] [address]Cszfkx [Moles/Vol]132 mmol/NXcw386-435PtfrodbluhMemorial Health System Selby General HospitalComment on above:Performed By: #### [id number] ####[facility] ([facility])[address] [place], [place] [address]Hhuo nitrogen [Mass/Vol]40 mg/dLHigh7-25UnMemorial Health System Selby General HospitalComment on above:Performed By: #### [id number] ####[facility] ([facility])[address] [place], [place] [address]SFEY NITROGEN/CREATININE (MASS RATIO) IN SER/PLAS13.5NormalUniversRegional Medical CenterComment on above: Performed By: #### [id number] ####[facility] ([facility])[address] [place], [place] [address]Egxrc gap [Moles/Vol]12 mmol/LNormal7-20UnMemorial Health System Selby General HospitalComment on above:Performed By: #### [id number] ####[facility] ([facility])[address] [place], [place] [address]Svcjwlh [Mass/Vol]7.5 mg/dLLow8.6-10.3 [facility] HealthComment on above:Performed By: #### [id number] ####[facility] ([facility])[address] [place], [place] [address]Pokpkrvz [Moles/Vol]99 mmol/IKyxaju52-317CejkktaoywMemorial Health System Selby General HospitalComment on above:Performed By: #### [id number] ####[facility] ([facility])[address] [place], [place] [address]GA0 [Moles/Vol]24 mmol/JKrkuts65-43WbohkbiazzMemorial Health System Selby General HospitalComment on above:Performed By: #### [id number] ####[facility] ([facility])[address] [place], [place] [address]Ktshfjrjfa [Mass/Vol]2.57 mg/dLHigh 0.70-1.30UnMemorial Health System Selby General HospitalComment on above:Performed By: #### [id number] ####[facility] ([facility])[address] [place] [address]AYGUGGQVEG FILTRATION RATE ML/MIN/1.73 SQ M.RTXNBTGWF24.2 mL/min/1.73m*2Low>60.0UnMemorial Health System Selby General HospitalComment on above:Result Comment: [facility]???s estimated glomerular filtration rate (eGFR) will [...] group of individuals. Performed By: #### [id number] ####[facility] ([facility])[address] [place] [address]Ctgbjcc [Mass/Vol]125 mg/sKCwgl67-697IezjkmriscMemorial Health System Selby General HospitalComment on above:Performed By: #### [id number] ####[facility] ([facility])[address] [place] [address]Jqynmyeva [Moles/Vol]3.7 mmol/LNormal 3.5-5.1UnMemorial Health System Selby General HospitalComment on above:Performed By: #### [id number] ####[facility] ([facility])[address] [place] [address]Qtovit [Moles/Vol]131 mmol/SCrd168-147LneqqyizusMemorial Health System Selby General HospitalComment on above:Performed By: #### [id number] ####[facility] ([facility])[address], [place] [address]Nkfk nitrogen [Mass/Vol]33 mg/dLHigh7-25UnMemorial Health System Selby General HospitalComment on above:Performed By: #### [id number] ####[facility] ([facility])[address], [place] [address]EIGU NITROGEN/CREATININE (MASS RATIO) IN SER/PLAS12.8NormalUniversRegional Medical CenterComment on above: Performed By: #### [id number] ####[facility] ([facility])[address] [address]DEGbz 11-90-1806Idgocdmybvt distribution width (RBC) [Ratio]13.9 % Pkvcpu38.5-15.0UnMemorial Health System Selby General HospitalComment on above:Performed By: #### [id number] ####[facility] ([facility])[address] [place] [address] ERYTHROCYTE MEAN CORPUSCULAR HEMOGLOBIN CONCENTRATION (G/DL) BY AHJDMXVBP50.4 g/tWSbbogj18.0-35.0UnMemorial Health System Selby General HospitalComment on above:Performed By: #### [id number] ####[facility] ([facility])[address] [place] [address]Nghwgpgyyt (Bld) [Volume fraction]30.2 %Low39.0-50.0UnMemorial Health System Selby General HospitalComment on above:Performed By: #### [id number] ####[facility] ([facility])[address], [place] [address]Gwrccquqmp (Bld) [Mass/Vol]10.4 g/dL Low13.0-17.0UnMemorial Health System Selby General HospitalComment on above:Performed By: #### [id number] ####[facility] ([facility])[address] [place] [address]NLZ (RBC) [Entitic mass]32.1 twTzpgyg56.0-33.0UnMemorial Health System Selby General Hospital Comment on above:Performed By: #### [id number] ####[facility] ([facility])[address] [place] [address]ODQ (RBC) [Entitic vol]93.2 vXXzgqmb22.0-98.0 [facility] HealthComment on above:Performed By: #### [id number] ####[facility] ([facility])[address] [place] [address]FIWZOBZBZ (10*3/UL) IN BLOOD AUTOMATED [id number] 10*3/qTVfufff037-300ArakanxvljMemorial Health System Selby General HospitalComment on above:Performed By: #### [id number] ####[facility] ([facility])[address] [place] [address]ABR (Bld) [#/Vol]3.24 10*6/uLLow 4.20-5.70UnMemorial Health System Selby General HospitalComment on above:Performed By: #### [id number] ####[facility] ([facility])[address] [place] [address]PYX (Bld) [#/Vol]6.72 10*3/uLNormal4.00-10.60UnMemorial Health System Selby General HospitalComment on above:Performed By: #### [id number] ####[facility] ([facility])[address] [place] [address]IMJFZTZgp 50-70-1337OIOPSGNAhjxylNvwiglawgc OhioHealthMAGNESIUMon 29-97-8204Fleppdrkk [Mass/Vol]1.9 mg/dLNormal1.9-2.7 [facility] HealthComment on above:Performed By: #### [id number] ####[facility] ([facility])eRnetta SERRANOLOWER BUCKS HOSPITALPorshaSIOUX [place], [place] [address]QJLQHRLNWZdm 16-93-9922Tcvfoghtm [Mass/Vol]3.5 mg/dLNormal2.5-5.0UnMemorial Health System Selby General HospitalComment on above:Performed By: #### [id number] ####[facility] ([facility])[address] [place], [place] [address]fe [id number] patient is Moderately Stable - Low risk of patient condition declining or worsening The patient's goals for the shift include comfort The clinical goals for the shift include VSS, safetyNormalUniversity OhioHealthANESon 22-81-9273YPENWyhhrnGsmzrvieba [facility] BASIC METABOLIC PANELon 20-72-6771Levnh gap [Moles/Vol]16 mmol/LNormal7-20 [facility] HealthComment on above:Performed By: #### [id number] ####[facility] ([facility])[address] [place] [address]Llaebpn [Mass/Vol]8.0 mg/dLLow8.6-10.3UnMemorial Health System Selby General HospitalComment on above:Performed By: #### [id number] ####[facility] ([facility])[address] [place] [address]Trrqmwri [Moles/Vol]100 mmol/LSunaju01-598PggiocnuynMemorial Health System Selby General HospitalComment on above:Performed By: #### [id number] ####[facility] ([facility])[address], [place] [address]NF5 [Moles/Vol]19 mmol/GIxl29-36 [facility] HealthComment on above:Performed By: #### [id number] ####[facility] ([facility])[address], [place] [address]Ukfripvwep [Mass/Vol]1.45 mg/dLHigh0.70-1.30UnMemorial Health System Selby General HospitalComment on above:Performed By: #### [id number] ####[facility] ([facility])[address], [place] [address]RMKPSDPFWT FILTRATION RATE ML/MIN/1.73 SQ M.ESSJUXRUC31.2 mL/min/1.73m*2Low>60.0UnMemorial Health System Selby General HospitalComment on above:Result Comment: The [facility]???s estimated glomerular filtration rate (eGFR) will [...] anyone group of individuals.Performed By: #### [id number] ####[facility] ([facility])[address] [place], [place] [address]Rfiiaut [Mass/Vol]122 mg/fFIxqe51-929FttzfcdvuyMemorial Health System Selby General HospitalComment on above:Performed By: #### [id number] ####[facility] ([facility])[address] [place] [address]Umucffrnr [Moles/Vol]3.9 mmol/L Normal3.5-5.1UnMemorial Health System Selby General HospitalComment on above:Performed By: #### [id number] ####[facility] ([facility])[address] [place] [address] Sodium [Moles/Vol]131 mmol/ETea047-618LwunuzvwqoMemorial Health System Selby General HospitalComment on above:Performed By: #### [id number] ####[facility] ([facility])[address] [place], [place] [address]Aluf nitrogen [Mass/Vol]24 mg/dLNormal7-25UnMemorial Health System Selby General HospitalComment on above:Performed By: #### [id number] ####[facility] ([facility])[address] [place], [place] [address]KAER NITROGEN/CREATININE (MASS RATIO) IN SER/PLAS16.6NormalUniversRegional Medical CenterComment on above: Performed By: #### [id number] ####[facility] ([facility])[address] [place], [place] [address]JWXna 53-77-3135Tzhnwjaxznn distribution width (RBC) [Ratio]13.9 % Sofrdy96.5-15.0UnMemorial Health System Selby General HospitalComment on above:Performed By: #### [id number] ####[facility] ([facility])[address] [place] [address] ERYTHROCYTE MEAN CORPUSCULAR HEMOGLOBIN CONCENTRATION (G/DL) BY SHNQRSNOJ96.8 g/dUDwebww95.0-35.0UnMemorial Health System Selby General HospitalComment on above:Performed By: #### [id number] ####[facility] ([facility])[address] [place], [place] [address]Gnfxphoohz (Bld) [Volume fraction]33.1 %Low39.0-50.0UnMemorial Health System Selby General HospitalComment on above:Performed By: #### [id number] ####[facility] ([facility])[address] [place] [address]Skgovdqexe (Bld) [Mass/Vol]11.2 g/dL Low13.0-17.0UnMemorial Health System Selby General HospitalComment on above:Performed By: #### [id number] ####[facility] ([facility])[address] [place] [address]HXC (RBC) [Entitic mass]31.8 lwEqtogm28.0-33.0UnMemorial Health System [facility] General Hospital Comment on above:Performed By: #### [id number] ####[facility] ([facility])[address] [place] [address]LRU (RBC) [Entitic vol]94.0 aSMhhbco35.0-98.0 [facility] HealthComment on above:Performed By: #### [id number] ####[facility] ([facility])[address] [place] [address]LQIQQFXMK (10*3/UL) IN BLOOD AUTOMATED [id number] 10*3/nLNlwpah373-284InsdzfeqrjMemorial Health System Selby General HospitalComment on above:Performed By: #### [id number] ####[facility] ([facility])[address] [place] [address]LEF (Bld) [#/Vol]3.52 10*6/uLLow 4.20-5.70UnMemorial Health System Selby General HospitalComment on above:Performed By: #### [id number] ####[facility] ([facility])[address] [place] [address]KJL (Bld) [#/Vol]5.70 10*3/uLNormal4.00-10.60UnMemorial Health System Selby General HospitalComment on above:Performed By: #### [id number] ####[facility] ([facility])[address] [place] [address]KCzj 31-45-1120VHErolggOvjcpfyqnh of [facility] Medical CenterHP H&P reviewed. The patient was examined and there are no changes to the H&P. He continues to be hypotensive. We will proceed with right heart catheterization as requested by the primary cardiology service.NormalUnMemorial Health System Selby General HospitalLIPID PANELon 69-18-6596SCLY/HDL3.4 mg/dLNormalUniKettering Health DaytonComment on above:Performed By: #### [id number] ####[facility] ([facility])[address] [place] [facility] [facility], [place] [address]Ciiiughjahc [Mass/Vol]98 mg/dLLow 120-200UnMemorial Health System Selby General HospitalComment on above:Performed By: #### [id number] ####[facility] ([facility])[address] [place] [address]Mrbnnmdzp [Mass/Vol]75 mg/dLNormal<150UnMemorial Health System Selby General HospitalComment on above: Result Comment: TRIGLYCERIDE REFERENCE RANGE:20 YEARS AND OLDER CARDIOVASCULAR RISKLESS THAN 150 mg/dL LOW GGFY327 TO 199 mg/dL BORDERLINE VFZG083 mg/dL AND GREATER HIGH RISKPerformed By: #### [id number] ####[facility] ([facility])[address] [place] [facility], [place] [address]Igrmimrao [Mass/Vol]54 mg/dLNormal0-160UnMemorial Health System Selby General HospitalComment on above:Performed By: #### [id number] ####[facility] ([facility])[address] [place] [address]Rslkrjpbo [Mass/Vol]29 mg/xEJcgzej27-77ZwfnodnmqjMemorial Health System Selby General HospitalComment on above:Performed By: #### [id number] ####[facility] ([facility])[address] [place] [address] NON HDL CHOL. (LDL+VLDL)69NormalUniversRegional Medical CenterComment on above:Performed By: #### [id number] ####[facility] ([facility])[address] [place], [place] [address]SFABK VLDL-C15 mg/dLNormal0-40UnMemorial Health System Selby General HospitalComment on above:Performed By: #### [id number] ####[facility] ([facility])[address] [place] [address]FOBQFYNUUcb 97-81-6465Zisnpmwab [Mass/Vol]1.9 mg/dLNormal1.9-2.7UnMemorial Health System Selby General HospitalComment on above:Performed By: #### [id number] ####[facility] ([facility])[address] [place] [address]ur 52-18-611229OncbwgTollgygmsw [facility]30 NormalUnMemorial Health System Selby General HospitalC-REACTIVE PROTEINon 5C REACTIVE PROTEIN (MG/L) IN SER/PLAS39.4 mg/LHigh<=5.0UnMemorial Health System Selby General HospitalComment on above:Result Comment: Testing performed using a new methodology, turbidimetry. Normal ranges have been updated. Old normal range was <8 mg/L.Performed By: #### [id number] ####[facility] ([facility])[address] [place], [place] [address]STH WITH AUTO DIFFERENTIALon 94-60-2791Yaqszeccj (Bld) [#/Vol]0.03 10*3/uLNormal0.00-0.20UnMemorial Health System Selby General HospitalComment on above:Performed By: #### [id number] ####[facility] ([facility])[address] [place], [place] [address]Jfettrqdz/100 WBC (Bld)0.5 %Normal0.0-1.0UnMemorial Health System Selby General HospitalComment on above:Performed By: #### [id number] ####[facility] ([facility])[address] [place], [place] [address]Pdbampfkuqg (Bld) [#/Vol]0.10 10*3/uL Normal0.00-0.50UnMemorial Health System Selby General HospitalComment on above:Performed By: #### [id number] ####[facility] ([facility])[address] [place] [address] Eosinophils/100 WBC (Bld)1.8 %Normal0.0-6.0UnMemorial Health System [facility] Hospital Comment on above:Performed By: #### [id number] ####[facility] ([facility])[address] [place], [place] [address]Kpnezumqqej distribution width (RBC) [Ratio]13.9 % Gzypav99.5-15.0UnMemorial Health System Selby General HospitalComment on above:Performed By: #### [id number] ####[facility] ([facility])[address] [place] [address] ERYTHROCYTE MEAN CORPUSCULAR HEMOGLOBIN CONCENTRATION (G/DL) BY YJRJXELJG92.0 g/vFJllpro04.0-35.0UnMemorial Health System Selby General HospitalComment on above:Performed By: #### [id number] ####[facility] ([facility])[address] [place], [place] [address]Xsgzzxqqxu (Bld) [Volume fraction]35.0 %Low39.0-50.0UnMemorial Health System Selby General HospitalComment on above:Performed By: #### [id number] ####[facility] ([facility])[address] [place], [place] [address]Xurkmdrtks (Bld) [Mass/Vol]11.9 g/dL Low13.0-17.0UnMemorial Health System Selby General HospitalComment on above:Performed By: #### [id number] ####[facility] ([facility])[address] [place] [address] Immature granulocytes (Bld) [#/Vol]0.02 10*3/uLNormal0.00-0.20UnMemorial Health System Selby General HospitalComment on above:Performed By: #### [id number] ####[facility] ([facility])[address] [place], [place] [address]Swqkhbge granulocytes/100 WBC (Bld)0.4 %Normal0.0-1.0UnMemorial Health System Selby General HospitalComment on above: Performed By: #### [id number] ####[facility] ([facility])[address] [place], [place] [address]Gshcztvixqj (Bld) [#/Vol]1.26 10*3/uLNormal1.20-4.00 [facility] HealthComment on above:Performed By: #### [id number] ####[facility] ([facility])[address] [place] [address]Frjfhwukvzk/100 WBC (Bld)22.5 %Xvjesf41.0-45.0UnMemorial Health System Selby General HospitalComment on above:Performed By: #### [id number] ####[facility] ([facility])[address] [address]DMR (RBC) [Entitic mass]31.9 veVwikca04.0-33.0UnMemorial Health System Selby General HospitalComment on above:Performed By: #### [id number] ####[facility] ([facility])[address] [place] [address]HRH (RBC) [Entitic vol] 93.8 cKTlpifn08.0-98.0UnMemorial Health System Selby General HospitalComment on above: Performed By: #### [id number] ####[facility] ([facility])[address] [place], [place] [address]Phzbikvlp (Bld) [#/Vol]0.99 10*3/uLNormal0.10-1.00UnMemorial Health System Selby General HospitalComment on above:Performed By: #### [id number] ####[facility] ([facility])[address] [place] [address]Nloolahre/100 WBC (Bld) 17.7 %High5.0-12.0UnMemorial Health System Selby General HospitalComment on above:Performed By: #### [id number] ####[facility] (BE[facility]ER)[address] [place], [place] [address]Njichrduvqu (Bld) [#/Vol]3.20 10*3/uLNormal1.60-7.60UnMemorial Health System Selby General HospitalComment on above:Performed By: #### [id number] ####[facility] ([facility])[address] [place], [place] [address]Wpdrayhusdy/100 WBC (Bld)57.1 %Normal 40.0-72.0UnMemorial Health System Selby General HospitalComment on above:Performed By: #### [id number] ####[facility] ([facility])[address] [address]DLII (PER 100 WBCS) BY AUTOMATED COUNT0.0 %Iqjacz9KlistnfodmMemorial Health System Selby General Hospital Comment on above:Performed By: #### [id number] ####[facility] ([facility])[address] [address]NWOHWYTCO (10*3/UL) IN BLOOD AUTOMATED [id number] 10*3/gOKhrrqk461-056PqgflcfswoMemorial Health System Selby General HospitalComment on above: Performed By: #### [id number] ####[facility] ([facility])[address] [address]ZRU (Bld) [#/Vol]3.73 10*6/uLLow4.20-5.70UnMemorial Health System Selby General HospitalComment on above:Performed By: #### [id number] ####[facility] ([facility])[address] [place] [place] [address]VZH (Bld) [#/Vol]5.60 10*3/uLNormal 4.00-10.60UnMemorial Health System Selby General HospitalComment on above:Performed By: #### [id number] ####[facility] ([facility])[address] [place] [address] COMPREHENSIVE METABOLIC PANELon 19-99-8433Qvexhtp [Mass/Vol]3.7 g/dLNormal 3.5-5.7UnMemorial Health System Selby General HospitalComment on above:Performed By: #### [id number] ####[facility] ([facility])[address] [place], [place] [address]ATP [Catalytic activity/Vol]48 U/BHjxjcb77-318TevkdbbrvqMercy Health Comment on above:Performed By: #### [id number] ####[facility] ([facility])[address] [place], [place] [address]GHK [Catalytic activity/Vol]18 U/LNormal7-52 [facility] HealthComment on above:Performed By: #### [id number] ####[facility] ([facility])[address] [place], [place] [address]Nnfov gap [Moles/Vol]13 mmol/LNormal7-20UnMemorial Health System Selby General HospitalComment on above:Performed By: #### [id number] ####[facility] ([facility])[address] [place] [address]REX [Catalytic activity/Vol]34 U/ZTptacp48-11FmmwycnmnuMemorial Health System Selby General HospitalComment on above:Performed By: #### [id number] ####[facility] ([facility])[address], [place] [address]Yggtcyqtd [Mass/Vol]0.5 mg/dL Normal0.3-1.0UnMemorial Health System Selby General HospitalComment on above:Performed By: #### [id number] ####[facility] ([facility])[address] [place] [address] Calcium [Mass/Vol]8.4 mg/dLLow8.6-10.3UnMemorial Health System Selby General HospitalComment on above:Performed By: #### [id number] ####[facility] ([facility])[address] [place], [place] [address]Ofixocwk [Moles/Vol]99 mmol/UFayzvg62-881BoqnddczedMemorial Health System Selby General HospitalComment on above:Performed By: #### [id number] ####[facility] ([facility])[address] [place], [place] [address]TF7 [Moles/Vol]26 mmol/PWkyqba61-12 [facility] HealthComment on above:Performed By: #### [id number] ####[facility] ([facility])[address] [place], [place] [address]Pkmncvbqsr [Mass/Vol]1.11 mg/dLNormal0.70-1.30UnMemorial Health System Selby General HospitalComment on above:Performed By: #### [id number] ####[facility] ([facility])[address] [place], [place] [address]EVSBMRGKYI FILTRATION RATE ML/MIN/1.73 SQ M.DHSIZIJTV58.9 mL/min/1.73m*2Normal>60.0UnMemorial [facility] System Sel[facility] General HospitalComment on above: Result Comment: [facility]s estimated glomerular filtration rate (eGFR) will [...] anyone group of individuals.Performed By: #### [id number] ####[facility] ([facility])[address] [place], [place] [address]Oiznzpk [Mass/Vol]125 mg/aCRgrt34-798KtlgjyrnmpMemorial Health System Selby General HospitalComment on above:Performed By: #### [id number] ####[facility] ([facility])[address] [place], [place] [address]Aahmeaciw [Moles/Vol]4.1 mmol/L Normal3.5-5.1UnMemorial [facility] System Sel[facility] General HospitalComment on above:Performed By: #### [id number] ####[facility] ([facility])[address] [place] [address] Protein [Mass/Vol]6.8 g/dLNormal6.0-8.3UnMem[facility] Selby [facility] Comment on above:Performed By: #### [id number] ####[facility] ([facility])[address] [place], [place] [address]Dkqels [Moles/Vol]134 mmol/RFxz485-348XioicatrulMemorial Health System Selby General HospitalComment on above:Performed By: #### [id number] ####[facility] ([facility])[address], [place] [address]Bwni nitrogen [Mass/Vol] 18 mg/dLNormal7-25UnMemorial Health System Selby General HospitalComment on above:Performed By: #### [id number] ####[facility] ([facility])[address] [place] [address] UREA NITROGEN/CREATININE (MASS RATIO) IN SER/PLAS16.2NormalUnMemorial Health System Selby General HospitalComment on above:Performed By: #### [id number] ####[facility] ([facility])[address] [place], [place] [address]ST CERVICAL SPINE WO IV CONTRASTon 66-75-8067XR CERVICAL SPINE WO IV CONTRASTInvalid Interpretation CodeUnMemorial Health System Selby General HospitalCT HEAD WO IV CONTRASTon 82-53-4449YG HEAD WO IV CONTRASTInvalid Interpretation CodeMercy HealthCTA CHEST W IV CONTRASTon 48-48-6616BEP CHEST W IV CONTRASTNormalUniversRegional Medical CenterMAGNESIUMon 72-07-1434Prixrvouy [Mass/Vol]1.6 mg/dLLow1.9-2.7 Mercy HealthComment on above:Performed By: #### [id number] ####[facility] ([facility])[address] [place], [place] [address]OEDVODUPkl 56-59-5849VQCWPMJUWgpikfOphyzbzjnb of [facility] [facility] Wkugks04ip NormalUnMemorial Health System Selby General Hospital30The patient is Moderately Stable - Low risk of patient condition declining or worsening The patient's goals for the shift include comfort, rest The clinical goals for the shift include stable hemodynamicsNormalUniversRegional Medical Center30on 78-40-713947ByzlenPsduqcikbl [facility] 30NormalUniversity [facility]30on 48-03-834507VobptoOrvuxddwsm [facility]30NormalUniversRegional Medical CenterBASIC METABOLIC PANELon 54-37-6534Fzjpb gap [Moles/Vol]12 mmol/LNormal7-20UnMemorial Health System Selby General HospitalComment on above:Performed By: #### [id number] ####[facility] ([facility])[address] [place], [place] [address]Rkdjrsc [Mass/Vol]8.8 mg/dLNormal 8.6-10.3UnMemorial Health System Selby General HospitalComment on above:Performed By: #### [id number] ####[facility] ([facility])[address] [place] [address]Eqkgqkxn [Moles/Vol]93 mmol/AHoa54-135LizivwkodcMemorial Health System Selby General HospitalComment on above:Performed By: #### [id number] ####[facility] ([facility])[address] [place] [address]HE8 [Moles/Vol]26 mmol/YJngjjb45-26NlqyducijfMemorial Health System Selby General HospitalComment on above:Performed By: #### [id number] ####[facility] ([facility])[address] [place] [address]Vvbdmjdbmt [Mass/Vol]0.94 mg/dLNormal 0.70-1.30UnMemorial Health System Selby General HospitalComment on above:Performed By: #### [id number] ####[facility] ([facility])[address] [place] [address]UDCCBXSHZL FILTRATION RATE ML/MIN/1.73 SQ M.YOMUUBTHF33.8 mL/min/1.73m*2Normal>60.0 [facility] HealthComment on above:Result Comment: The [facility]???s estimated glomerular filtration rate (eG FR) will [...] group of individuals. Performed By: #### [id number] ####[facility] ([facility])[address] [place] [address]Agezdrj [Mass/Vol]127 mg/oJLwym82-404EoagmazeveMemorial Health System Selby General HospitalComment on above:Performed By: #### [id number] ####[facility] ([facility])[address] [place], [place] [address]Cdjpivzeh [Moles/Vol]3.9 mmol/LNormal 3.5-5.1UnMemorial Health System Selby General HospitalComment on above:Performed By: #### [id number] ####[facility] ([facility])[address] [place] [address]Mljntg [Moles/Vol]127 mmol/SMwk170-798LtbokstxjcMemorial Health System Selby General HospitalComment on above:Performed By: #### [id number] ####[facility] ([facility])[address] [place] [place] [address]Zapa nitrogen [Mass/Vol]16 mg/dLNormal7-25UnMemorial Health System Selby General HospitalComment on above:Performed By: #### [id number] ####[facility] ([facility])[address] [place], [place] [address]KFSV NITROGEN/CREATININE (MASS RATIO) IN SER/PLAS17.0NormalUniversRegional Medical CenterComment on above: Performed By: #### [id number] ####[facility] ([facility])[address] [place] [address]OLSRW CULTUREon 73-36-6565Smfhzotx identified Cx Nom (Bld)No growth at 5 daysNormalUniKettering Health DaytonComment on above:Performed By: #### [id number] ####[facility] ([facility])[address] [place] [address] Order Comment: From a different site than #1.CBCon 30-22-6256Iwhalqmwspq distribution width (RBC) [Ratio]13.9 %Nagcnp84.5-15.0UnMemorial Health System Selby General HospitalComment on above:Performed By: #### [id number] ####[facility] ([facility])[address] [facility], [place] [address]ZXUROPJDGQG MEAN CORPUSCULAR HEMOGLOBIN CONCENTRATION (G/DL) BY YUSYKJYZE70.6 g/tVTaev73.0-35.0UnMemorial Health System Selby General HospitalComment on above:Performed By: #### [id number] ####[facility] ([facility])[address] [place] [address]Pntgjrucmt (Bld) [Volume fraction]34.0 %Low39.0-50.0UnMemorial Health System Selby General HospitalComment on above: Performed By: #### [id number] ####[facility] ([facility])[address] [place] [address]Jnwfebffuf (Bld) [Mass/Vol]12.1 g/dLLow13.0-17.0UnMemorial Health System Selby General HospitalComment on above:Performed By: #### [id number] ####[facility] ([facility])[address] [place] [address]OWA (RBC) [Entitic mass] 32.3 ntYslzww00.0-33.0UnMemorial Health System Selby General HospitalComment on above: Performed By: #### [id number] ####[facility] ([facility])[address] [place] [address]ABX (RBC) [Entitic vol]90.7 sVSedzoo54.0-98.0UnMemorial Health System Selby General HospitalComment on above:Performed By: #### [id number] ####[facility] ([facility])[address] [place] [address]GDKGDVBBC (10*3/UL) IN BLOOD AUTOMATED EBFVZ707 10*3/jWIruqof754-502TtaunpsrmpMemorial Health System [facility] Comment on above:Performed By: #### [id number] ####[facility] ([facility])[address] [place] [address]NPQ (Bld) [#/Vol]3.75 10*6/uLLow4.20-5.70UnMemorial Health System Selby General HospitalComment on above:Performed By: #### [id number] ####[facility] ([facility])[address] [place] [address]ZFO (Bld) [#/Vol]7.50 10*3/uLNormal4.00-10.60UnMemorial Health System Selby General HospitalComment on above: Performed By: #### [id number] ####[facility] (BEAKER)[address] [place], [place] [address]UPSNUZASem 97-35-7700PFIEWVMY (UG/DL) IN SER/PLAS11.2 ug/dL Normal6-23UnMemorial Health System Selby General HospitalComment on above:Performed By: #### [id number] ####[facility] (BEAKER)[address] [place] [address] OSMOLALITYon 72-58-7147ACYDLAUYRV BVPPVOUV489 mOsm/isQuypai973-677ErrwkepuaaMemorial Health System Selby General HospitalComment on above:Result Comment: Test Performed by [employer] [address] [place] [address] - Released 04/20/2025 19:48Performed By: #### [id number] ####[facility] [id number] [place], [place] [address]xj 92-65-002841Izf patient is Moderately Stable - Low risk of patient condition declining or worsening The patient's goals for the shift include Neck/Chest pain The clinical goals for the shift include stable vital signsNormalUniversRegional Medical CenterANAon 64-72-3151HLF TITER<1:40Normal<=1:40UnMemorial Health System Selby General HospitalComment on above:Result Comment: Test performed using DAVID IFA COLLIN Hep-2 Test, a pre-standardized assay designed forthe qualitative and semi-quantitative detection of antinuclear antibodies.Performed By: #### [id number] ####[facility] (BEAKER)[address] [place], [place] [address]BMUBdu 10-46-4818YVFXSefqqbExyyopskqf of [place] Medical CenterB-TYPE NATRIURETIC PEPTIDEon 43-52-5375Cvxckfbjqnm peptide B (Bld) [Mass/Vol]254 pg/mLHigh0-100 Mercy HealthComment on above:Performed By: #### [id number] ####[facility] (BEAKER)[address] [place], [place] [address]BSWP FLUID CELL DIFFERENTIALon 63-25-9806YUNEQIQAX TOTAL PER COUNTED LEUKOCYTES IN BODY FLUID BY MANUAL COUNTNormalUniversRegional Medical CenterComment on above:Order Comment: Differential performed on cytospinPerformed By: #### [id number] ####[facility] (BEAKER)[address], [place] [address]ZAHQH COUNTED TOTAL (#) IN BODY WJDUE700UespcrKxitbizqriKettering Health DaytonComhenry ford jackson hospital on above:Order Comment: Differential performed on cytospinPerformed By: #### [id number] ####[facility] (BEAKER)[address], [place] [address]VJAMLOHWNUR TOTAL PER COUNTED LEUKOCYTES IN BODY FLUID BY MANUAL COUNTNormalUniversRegional Medical CenterComhenry ford jackson hospital on above:Order Comment: Differential performed on cytospin Performed By: #### [id number] ####[facility] (AKER)[address], [place] [address]MXNGTLSSYJA TOTAL PER COUNTED LEUKOCYTES IN BODY FLUID BY MANUAL QMPKD0CwftmpKpiztzolfnKettering Health DaytonComhenry ford jackson hospital on above:Order Comment: Differential performed on cytospinPerformed By: #### [id number] ####[facility] (BEAKER)[address], [place] [address]NHFCQTAHFWM CELLS TOTAL PER COUNTED LEUKOCYTES IN BODY FLUID BY MANUAL CAYB4FtiidkWzmatukgpiRegional Medical CenterComhenry ford jackson hospital on above:Order Comment: Differential performed on cytospin Performed By: #### [id number] ####[facility] (BEAKER)[address], [place] [address]IMCVHZYCM+MACROPHAGES TOTAL PER COUNTED LEUKOCYTES IN BODY FLUID BY MANUALNormalUniversRegional Medical CenterComhenry ford jackson hospital on above:Order Comment: Differential performed on cytospinPerformed By: #### [id number] ####[facility] (BEAKER)[address], [place] [address]XKVCTNPAUMC TOTAL PER COUNTED LEUKOCYTES IN BODY FLUID BY MANUAL DILJG18FhjyonYcgxhazfwgRegional Medical CenterComhenry ford jackson hospital on above:Order Comment: Differential performed on cytospin Performed By: #### [id number] ####[facility] (BEAKER)[address], [place] [address]RPMZB CELLS BODY FLUID (MANUAL)NormalUnMemorial Health System Selby General HospitalComment on above:Order Comment: Differential performed on cytospin Performed By: #### [id number] ####[facility] ([facility])[address] [place], [place] [address]IRRN FLUID CULTUREon 95-60-9216Tjvuxixq identified Cx Nom (Unsp spec)No growth at 5 daysNormalUniKettering Health DaytonComment on above:Performed By: #### [id number] ####[facility] ([facility])[address] [place], [place] [address]RYFJ STAIN RESULTNormalUniversRegional Medical Center Comment on above:Result Comment: No polymorphonuclear leukocytes seenNo organisms seenPerformed By: #### [id number] ####[facility] ([facility])[address] [place], [place] [address]Q-BIZLBMGV PROTEINon 04-19-2025 REACTIVE PROTEIN (MG/L) IN SER/VNSS797.7 mg/LHigh<=5.0UnMemorial Health System Selby General HospitalComment on above:Result Comment: Testing performed using a new methodology, turbidimetry. Normal ranges have been updated. Old normal range was <8 mg/L. Performed By: #### [id number] ####[facility] ([facility])[address] [place], [place] [address]LZRot 73-24-0017Olzgchituaw distribution width (RBC) [Ratio] 13.8 %Biwlit63.5-15.0Mercy HealthComment on above: Performed By: #### [id number] ####[facility] ([facility])[address] [place], [place] [address]JGIYOJBXFKT MEAN CORPUSCULAR HEMOGLOBIN CONCENTRATION (G/DL) BY GJAEUOFGI22.3 g/pZAepp58.0-35.0UnMemorial Health System Selby General HospitalComment on above:Performed By: #### [id number] ####[facility] ([facility])[address] [place], [place] [address]Epbbikpxru (Bld) [Volume fraction]36.8 %Low39.0-50.0 [facility] HealthComment on above:Performed By: #### [id number] ####[facility] ([facility])[address] [place] [address]Ymgvgosshy (Bld) [Mass/Vol]13.0 g/dNUnpqeb84.0-17.0UnMemorial Health System Selby General HospitalComment on above:Performed By: #### [id number] ####[facility] ([facility])[address] [place] [address]OPW (RBC) [Entitic mass]32.3 xbGwrgwp92.0-33.0UnMemorial Health System Selby General HospitalComment on above:Performed By: #### [id number] ####[facility] ([facility])[address] [place] [address]ZNC (RBC) [Entitic vol] 91.5 hORsvuia70.0-98.0UnMemorial Health System Selby General HospitalComment on above: Performed By: #### [id number] ####[facility] ([facility])[address] [place] [address]ODBYRNPRL (10*3/UL) IN BLOOD AUTOMATED ZIBBN105 10*3/uLNormal 150-400UnMemorial Health System Selby General HospitalComment on above:Performed By: #### [id number] ####[facility] ([facility])[address] [place] [address]EBR (Bld) [#/Vol]4.02 10*6/uLLow4.20-5.70UnMemorial Health System Selby General HospitalComment on above:Performed By: #### [id number] ####[facility] ([facility])[address] [place] [address]YPF (Bld) [#/Vol]10.71 10*3/uLHigh4.00-10.60UnMemorial Health System [facility]by General HospitalComment on above:Performed By: #### [id number] ####[facility] ([facility])[address] [place] [address]JUFWZPRGODPBM METABOLIC PANELon 87-32-8259Tjhtfig [Mass/Vol]3.8 g/dLNormal3.5-5.7UnMemorial Health System Selby General HospitalComment on above:Performed By: #### [id number] ####[facility] (BEAKER)[address] [place], [place] [address]JFU [Catalytic activity/Vol]51 U/L Qxgxmu86-130YothalklqbMemorial Health System Selby General HospitalComment on above:Performed By: #### [id number] ####[facility] ([facility])[address] [place], [place] [address]VCV [Catalytic activity/Vol]27 U/LNormal7-52UnMemorial Health System [facility] Comment on above:Performed By: #### [id number] ####[facility] ([facility])[address] [place], [place] [address]Qcsbc gap [Moles/Vol]12 mmol/LNormal7-20UnMemorial Health System Selby General HospitalComment on above:Performed By: #### [id number] ####[facility] ([facility])[address] [place], [place] [address]PBQ [Catalytic activity/Vol]22 U/JYpggyj83-84AxvgskiarnMemorial Health System Selby General HospitalComment on above:Performed By: #### [id number] ####[facility] ([facility])[address] [place], [place] [address]Rgbojtpqz [Mass/Vol]0.7 mg/dLNormal0.3-1.0UnMemorial Health System Selby General HospitalComment on above:Performed By: #### [id number] ####[facility] ([facility])[address] [place], [place] [address]Xklffbp [Mass/Vol]9.5 mg/dLNormal 8.6-10.3UnMemorial Health System Selby General HospitalComment on above:Performed By: #### [id number] ####[facility] (BEAKER)[address] [place], [place] [address]Tkyawkzm [Moles/Vol]91 mmol/ZOih34-321TqxoncsdvxMemorial Health System Selby General HospitalComment on above:Performed By: #### [id number] ####[facility] [place], [place] [address]LR6 [Moles/Vol]28 mmol/BLyvlhk51-51YrezwlkbksMemorial Health System Selby General HospitalComment on above:Performed By: #### [id number] ####[facility] ([facility])[address] [place] [address]Fckmauvpok [Mass/Vol]0.98 mg/dLNormal 0.70-1.30UnMemorial Health System Selby General HospitalComment on above:Performed By: #### [id number] ####[facility] ([facility])[address] [place], [place] [address]VYCQCOIXYI FILTRATION RATE ML/MIN/1.73 SQ M.HMRXGXJTN35.5 mL/min/1.73m*2Normal>60.0 [facility] HealthComment on above:Result Comment: The [facility]???s estimated glomerular filtration rate (eG FR) will [...] group of individuals. Performed By: #### [id number] ####[facility] ([facility])[address] [place], [place] [address]Jktzyrq [Mass/Vol]109 mg/bNElqb68-242MblljypdptMemorial Health System Selby General HospitalComment on above:Performed By: #### [id number] ####[facility] ([facility])[address] [place], [place] [address]Kazrfwyrz [Moles/Vol]5.0 mmol/LNormal 3.5-5.1UnMemorial Health System Selby General HospitalComment on above:Performed By: #### [id number] ####[facility] ([facility])[address] [place] [address]Wnmdwhy [Mass/Vol]6.8 g/dLNormal6.0-8.3UnMemorial Health System Selby General HospitalComment on above:Performed By: #### [id number] ####[facility] ([facility])[address] [place], [place] [address]Gcpqqh [Moles/Vol]126 mmol/MWyz832-586QmapyyebhtMemorial Health System Selby General HospitalComment on above:Performed By: #### [id number] ####[facility] ([facility])[address] [place], [place] [address]Cxuk nitrogen [Mass/Vol]17 mg/dLNormal 7-25UnMemorial Health System Selby General HospitalComment on above:Performed By: #### [id number] ####[facility] ([facility])[address] [place], [place] [address]XPYG NITROGEN/CREATININE (MASS RATIO) IN SER/PLAS17.3NormalUniversRegional Medical CenterComment on above:Performed By: #### [id number] ####[facility] ([facility])[address] [place], [place] [address]WEHCLMHum 17-96-4904XVPNJHWQzruxzAvita Health System Ontario HospitalHIGH SENSITIVITY TROPONIN Ion 99-16-8055ED TROPONIN I (NG/L)7 ng/LNormal<20UnMemorial Health System Selby General HospitalComment on above:Performed By: #### [id number] ####[facility] ([facility])[address] [place], [place] [address]VKnb 39-45-1941HUPugrypOobxasqucl of [place] Medical CenterHP NormalUnMemorial Health System Selby General HospitalHPNormMagruder HospitalniKettering Health DaytonLaboratory - Microbiology and Antimicrobial susceptibilityOrdered By: Froy Avila on 74-91-3537RMGY-CoV-2 (COVID-19) RNA DANDY+probe Ql (Unsp spec) NegativeNEGATIVEDelaware County HospitalComment on above:This test has not been FDA cleared or approved, but has beenauthorized by the FDA under an Emergency Use Authorization(EUA) for use by authorized laboratories certified underCLIA that meet the requirements to perform moderate [...] the declaration isterminated or authorization is revoked sooner.NON-JEWELRY CASTING MODEL MAKER CYTOLOGY - CELLULAR EXAMon [id number] AP CASE REPORT NormalUnMemorial Health System Selby General HospitalComment on above:Result Comment: Non- gynecologic Cytology Case: [id number] Provider: Remigio Mancilla MD Collected: 04/19/2025 1523Ordering Location: [facility] Received: 04/19/2025 1533Pathologist: ADAMA Jonaspecimen: Pericardial FluidPerformed By: #### [id number] ####[facility] (BEAKER)[address] [facility] [place] [address]DWE AP CLINICAL INFORMATIONPericardial effusionNormalUniKettering Health DaytonComment on above:Performed By: #### [id number] ####[facility] (BEAKER)[address] [facility] [place] [address]ZKN AP GROSS LQUGASYPMMA444 mL opaque, red fluidNormalUniKettering Health DaytonComment on above:Performed By: #### [id number] ####[facility] (BEAKER)[address] [place] [address] LAB AP REPORT FINAL DIAGNOSIS NARRATIVENoMarion Hospital Comment on above:Result Comment: A. Pericardial fluid: - Negative for malignancy. - Marked acute inflammation. at 1746 EDTPerformed By: #### [id number] ####[facility] (BEAKER)[address] [facility] [place] [address]Ph Panel InformationOrdered By: Froy Avila on 80-73-5579Khididx Influenza Type A AntigenNegativeDelaware County HospitalComment on above:Negative for Flu A protein antigen. Infection due to Flu Acannot be ruled out. Flu A antigen in thesample may bebelow the detection limit of the test.Bedside Influenza Type B AntigenNegativeDelaware County HospitalComment on above:Negative for Flu B protein antigen. Infection due to Flu Bcannot be ruled out. Flu B antigen in thesample may bebelow the detection limit of the test.Troponin I High Yjfcnvtuvkh94.5 pg/mL 4.0-76.1FGenesis HospitalComment on above:CUT-OFF POINTS HAVE BEEN ESTABLISHED BASED ON THE FOURTHUNIVERSAL DEFINITION OF MYOCARDIAL INFARCTIO N. THE UPPERREFERENCE LIMIT (URL) OF TROPONIN, DEFINED THE 99THPERCENTILE OF cTnI DISTRIBUTION IN A REFERENCE POPULATION,HAS BEEN CONFIRMED THE DECISION THRESHOLD FOR MIDIAGNOSIS.99TH PERCENTILE = 76.2 PG/MLNOTE: HIGH-SENSITIVITY TROPONIN ASSAY IS NOT INTENDED TO BEUSED IN ISOLATION BUT SHOULD BE INTERPRETED IN CONJUNCTIONWITH OTHER DIAGNOSTIC AND CLINICAL INFORMATION.OSMOLALITYon 97-66-7386OHIWLEWTMZ RHXWDDOP839 mOsm/qsJfb080-209VcpblxwmdzMemorial Health System Selby General HospitalComment on above:Result Comment: Test Performed by [employer] [address] [place] [address] - Released 04/20/2025 15:14Performed By: #### [id number] ####[facility] [id number] [place], [place] [address]PULADSHXE REVIEWon 92-68-3362KDRGRBPOV REVIEWReviewed.NormalUnMemorial Health System Selby General HospitalComment on above:Result Comment: .Performed By: #### [id number] ####[facility] (BEAKER)[address] [place], [place] [address]VUXQKRKLRLIOS RATEon 04-19-2025 SEDIMENTATION RATE, QDHBLXNYWND60 mm/hrNormal<20UnMemorial Health System Selby General HospitalComment on above:Performed By: #### [id number] ####[facility] (BEAKER)[address] [place], [place] [address]TUTUGI, URINE, RANDOMon 04-19-2025 Sodium (U) [Moles/Vol]59 mmol/LNormalUnMemorial Health System Selby General HospitalComment on above:Performed By: #### [id number] ####[facility] (BE[facility]ER)[address] [place], [place] [address]Xokqstzlb Auto (Bld) [#/Vol]Ordered By: Froy Avila on 13-65-7340Ggroijevg (Bld) [#/Vol]0.0 10 3/uL0.0-0.1FGenesis HospitalBasophils/100 WBC Auto (Bld)Ordered By: Froy Avila on 04-18-2025 Basophils/100 WBC (Bld)0.3 %0.2-2.0[facility] Eosinophils/100 WBC Auto (Bld)Ordered By: Froy Avila on 04-18-2025 Eosinophils/100 WBC (Bld)0.1 %Low0.9-7.0[facility] Erythrocyte distribution width Auto (RBC) [Ratio]Ordered By: Froy Avila on 28-11-6933Mixswpyhcjm distribution width (RBC) [Ratio]13.2 %11.0-15.0Delaware County HospitalGlomerular filtration rate (GFR) estimation in non- AmericanOrdered By: Froy Avila on 64-19-8648KFV/1.73 sq M.predicted among non-blacks MDRD (S/P/Bld) [Vol rate/Area]mL/min/{1.73_m2}>=60 mL/min/1.73m 2FGenesis HospitalHematocrit Auto (Bld) [Volume fraction]Ordered By: Froy Avila on 23-35-9113Bgmvrbuiay (Bld) [Volume fraction]41.3 %Low 42.0-54.0[facility] HospitalHemoglobin [Mass/volume] in Blood Ordered By: Froy Avila on 20-07-7717Wmexegvyfo (Bld) [Mass/Vol]14.6 g/dL 14.0-18.0[facility] HospitalLaboratory - Chemistry and Chemistry - challengeOrdered By: Froy Avila on 52-04-7950Wizahti [Mass/Vol]10.4 mg/dLHigh 8.5-10.1FGenesis HospitalChloride [Moles/Vol]86 mmol/VYll00-955 [facility] HospitalCO2 [Moles/Vol]25.4 mmol/L21.0-32.0[facility] HospitalCreatinine [Mass/Vol]0.94 mg/dL0.70-1.30[facility] HospitalGFR/1.73 sq M.predicted MDRD (S/P/Bld) [Vol rate/Area] mL/min/{1.73_m2}>=60 mL/min/1.73m 2FGenesis HospitalGlucose [Mass/Vol]114 mg/oFCyxf26-751MxmvtzhapDelaware County HospitalNatriuretic peptide B (Bld) [Mass/Vol]332.0 pg/mL<=900.0[facility] Potassium [Moles/Vol]4.1 mmol/L3.5-5.1FKettering Health Behavioral Medical Centerodium [Moles/Vol]123 mmol/LCritically mkq890-273ArxsqxpkvDelaware County Hospital Comment on above:RESULTS CALLED TO GRETCHEN GUZMAN RN @BY Devika Valdez at 0008Urea nitrogen [Mass/Vol]15.0 mg/dL7.0-18.0[facility] HospitalUrea nitrogen/Creatinine [Mass ratio]16.0 mg/mgDelaware County HospitalLaboratory - Hematology and Cell countsOrdered By: Froy Avila on 18-00-4232Hlvhdzxj granulocytes/100 WBC (Bld)0.2 %0.0-0.5FGenesis HospitalLeukocytes [#/volume] corrected for nucleated erythrocytes in Blood by Automated counOrdered By: Froy Avila on 18-49-3011FPC corrected for nucl RBC Auto (Bld) [#/Vol]8.9 10 3/uL4.0-11.0[facility] Lymphocytes Auto (Bld) [#/Vol]Ordered By: Froy Avila on 45-20-6338Zcgfyycnbdh (Bld) [#/Vol]1.2 10 3/uL1.2-3.8[facility] HospitalLymphocytes/100 WBC Auto (Bld)Ordered By: Froy Avila on 44-83-9953Zszojjcgyiu/100 WBC (Bld) 13.3 %Low20.5-60.0OhioHealthH Auto (RBC) [Entitic mass] Ordered By: Froy Avila on 24-90-8706MSO (RBC) [Entitic mass]32.1 pg25.9-34.0 [facility] HospitalMCHC Auto (RBC) [Mass/Vol]Ordered By: Froy Avila on 80-61-5543HCIC (RBC) [Mass/Vol]35.4 g/qSQpcp22.9-35.2FGenesis HospitalMCV Auto (RBC) [Entitic vol]Ordered By: Froy Avila on 56-62-1037HWC (RBC) [Entitic vol]90.8 fL80.0-94.0[facility] HospitalMonocytes Auto (Bld) [#/Vol]Ordered By: Froy Avila on 04-18-2025 Monocytes (Bld) [#/Vol]1.2 10 3/uLHigh0.3-0.8[facility] Monocytes/100 WBC Auto (Bld)Ordered By: Froy Avila on 15-30-0817Kjwbrslsy/100 WBC (Bld)13.8 %High1.7-12.0[facility] HospitalNeutrophils Auto (Bld) [#/Vol]Ordered By: Froy Avila on 77-60-8368Nisfbtbcyac (Bld) [#/Vol]6.4 10 3/uL1.4-6.5FGenesis HospitalNeutrophils/100 WBC Auto (Bld) Ordered By: Froy Avila on 83-89-4437Dxbnjuzbtih/100 WBC (Bld)72.3 %43.0-75.0 [facility] HospitalNo Panel InformationOrdered By: Froy Avila on 75-30-2951Rvapwstbbat # (Auto)0.0 10 3/uL0.0-0.7FGenesis HospitalImmature Granulocyte # (Auto)0.02 10 3/uL0.00-0.03[facility] HospitalTroponin I High Tegejswkuiq07.5 pg/mL4.0-76.1FGenesis HospitalComment on above:CUT-OFF POINTS HAVE BEEN ESTABLISHED BASED ON THE FOURTHUNIVERSAL DEFINITION OF MYOCARDIAL INFARCTION. THE UPPERREFERENCE LIMIT (URL) OF TROPONIN, DEFINED THE 99THPERCENTILE OF cTnI DISTRIBUTION IN A REFERENCE POPULATION,HAS BEEN CONFIRMED THE DECISION THRESHOLD FOR MIDIAGNOSIS.99TH PERCENTILE = 76.2 PG/MLNOTE: HIGH-SENSITIVITY TROPONIN ASSAY IS NOT INTENDED TO BEUSED IN ISOLATION BUT SHOULD BE INTERPRETED IN CONJUNCTIONWITH OTHER DIAGNOSTIC AND CLINICAL INFORMATION.Platelet mean volume Auto (Bld) [Entitic vol]Ordered By: Froy Avila on 90-33-4912Hjyvjted mean volume (Bld) [Entitic vol]10.4 fL9.5-13.5FGenesis Hospital Platelets Auto (Bld) [#/Vol]Ordered By: Froy Avila on 81-75-0750Menfcjrjn (Bld) [#/Vol]205 10 3/iJ773-818CwdtytlabDelaware County HospitalRBC Auto (Bld) [#/Vol]Ordered By: Froy Avila on 77-67-9202FZB (Bld) [#/Vol]4.55 10 6/uLLow 4.70-6.10[facility] Health System West Campuserum or plasma anion gap determinationOrdered By: Froy Avila on 80-25-4012Xuonf gap [Moles/Vol]15.7 mmol/LFGenesis HospitalBASIC METABOLIC PANELon 71-66-6952Gdkdp gap [Moles/Vol]13 mmol/LNormal7-20UnMemorial Health System Selby General HospitalComment on above:Performed By: #### [id number] ####[facility] (BEAKER)[address] [facility] [address]Csdcufa [Mass/Vol]10.4 mg/dLHigh8.6-10.3UnMemorial Health System Selby General HospitalComment on above:Performed By: #### [id number] ####[facility] (BEAKER)[address] [facility] [place] [address]Atbpgkfe [Moles/Vol]95 mmol/CTag88-066 [facility] HealthComment on above:Performed By: #### [id number] ####[facility] (BEAKER)[address] [facility] [address]CR8 [Moles/Vol] 28 mmol/XOpduvo52-99NqqlttmkvtMemorial Health System Selby General HospitalComment on above: Performed By: #### [id number] ####[facility] ([facility])[address] [place], [place] [address]Vdrpyom [Mass/Vol]91 mg/kEJeuxcp71-169YueuneckvjMemorial Health System Selby General HospitalComment on above:Performed By: #### [id number] ####[facility] ([facility])[address] [place], [place] [address]Rfnxpjbix [Moles/Vol]4.1 mmol/LNormal 3.5-5.1UnMemorial Health System Selby General HospitalComment on above:Performed By: #### [id number] ####[facility] ([facility])[address] [place], [place] [address]Oxdyrz [Moles/Vol]132 mmol/DQqn154-703LdpcxfbkpiMemorial Health System Selby General HospitalComment on above:Performed By: #### [id number] ####[facility] ([facility])[address] [place], [place] [address]Wvic nitrogen [Mass/Vol]15 mg/dLNormal7-25UnMemorial Health System Selby General HospitalComment on above:Performed By: #### [id number] ####[facility] ([facility])[address] [place], [place] [address]DKCF NITROGEN/CREATININE (MASS RATIO) IN SER/PLAS15.8NormalUniversRegional Medical CenterComment on above: Performed By: #### [id number] ####[facility] ([facility])[address] [place], [place] [address]RQOwx 38-04-7587Cylpssocttc distribution width (RBC) [Ratio]15.2 %High 11.5-15.0UnMemorial Health System Selby General HospitalComment on above:Performed By: #### [id number] ####[facility] ([facility])[address] [place] [address] ERYTHROCYTE MEAN CORPUSCULAR HEMOGLOBIN CONCENTRATION (G/DL) BY SFTWWJZSC39.6 g/fZKbjtsh79.0-35.0UnMemorial Health System Selby General HospitalComment on above:Performed By: #### [id number] ####[facility] ([facility])[address] [place] [address]Psoarttajl (Bld) [Volume fraction]40.2 %Nzdkwz68.0-50.0Mer[facility] HealthComment on above:Performed By: #### [id number] ####[facility] ([facility])[address] [place] [address]Nvdnkffmuv (Bld) [Mass/Vol]13.9 g/dL Dmatcf15.0-17.0UnMemorial Health System Selby General HospitalComment on above:Performed By: #### [id number] ####[facility] ([facility])[address] [place] [address]FKQ (RBC) [Entitic mass]32.0 fiGrxulb48.0-33.0[facility] Comment on above:Performed By: #### [id number] ####[facility] ([facility])[address] [place] [address]YOZ (RBC) [Entitic vol]92.6 cGWbhdtq65.0-98.0 [facility] HealthComment on above:Performed By: #### [id number] ####[facility] ([facility])[address] [place] [address]LPBMNPZFY (10*3/UL) IN BLOOD AUTOMATED UIUTA944 10*3/xCHkdbua845-698ZzdwvksjvwMemorial Health System Selby General HospitalComment on above:Performed By: #### [id number] ####[facility] ([facility])[address] [place] [address]VZE (Bld) [#/Vol]4.34 10*6/uLNormal 4.20-5.70UnMemorial Health System Selby General HospitalComment on above:Performed By: #### [id number] ####[facility] ([facility])[address] [place] [address]ZJM (Bld) [#/Vol]7.48 10*3/uLNormal4.00-10.60UnMemorial Health System Selby General HospitalComment on above:Performed By: #### [id number] ####[facility] ([facility])[address] [place] [address]MDQWRKTDOL, SERUMon 88-36-5674Jtrmdmrcye [Mass/Vol]0.95 mg/dL Normal0.70-1.30UnMemorial Health System Selby General HospitalComment on above:Performed By: #### [id number] ####[facility] ([facility])[address] [place] [address] Performed By: #### [id number] ####[facility] ([facility])[address] [place] [address]ZDFQMOCPSF FILTRATION RATE ML/MIN/1.73 SQ M.UTUOUXIAZ68.6 mL/min/1.73m*2Normal>60.0UnMemorial Health System Selby General HospitalComment on above: Result Comment: [facility]???s estimated glomerular filtration rate (eGFR) will [...] affect anyone group of individuals.Performed By: #### [id number] ####[facility] ([facility])[address] [place] [address]Lryjiirnq By: #### [id number] ####[facility] ([facility])[address] [place] [address]BZI CHEST W IV CONTRASTon 03-26-2025 CTA CHEST W IV CONTRASTInvalid Interpretation CodeUnMemorial Health System Selby General HospitalComment on above:Order Comment: 45-day imaging - Post-LAAO device - venous & gaited with 3D reconstrution to assess left atrial appendageLabon 03-26-2025 LabNormalUniversity OhioHealthOrders Onlyon 19-29-4791Fqqycm Only NormalUnMemorial Health System Selby General HospitalFollow-Upon 94-44-2471Ykhefs-UpNormShelby Memorial HospitalOrders Onlyon 21-21-5067Qoxkzh OnlyNormal [facility]36on 26-20-599974GtxcbpEprllnbeyu OhioHealthTelephoneon 63-40-9777CbkkfryyfYypjsvSpzfuychbw [facility]30on 36-13-761337RyvukrYgzhjblvoz of [facility] Medical CenterBASIC METABOLIC PANELon 79-69-5385Jycae gap [Moles/Vol]12 mmol/LNormal7-20UnMemorial Health System Selby General HospitalComment on above:Performed By: #### [id number] ####[facility] ([facility])[address] [place], [place] [address]Dsylpyq [Mass/Vol]7.5 mg/dLLow8.6-10.3 [facility] HealthComment on above:Performed By: #### [id number] ####[facility] ([facility])[address] [place], [place] [address]Fzywjhvq [Moles/Vol]102 mmol/DCescds57-727ImdqlhaqgjMemorial Health System Selby General HospitalComment on above:Performed By: #### [id number] ####[facility] ([facility])[address] [place], [place] [address]EU7 [Moles/Vol]25 mmol/QCwmznd73-78OruaqfujmzMemorial Health System Selby General HospitalComment on above:Performed By: #### [id number] ####[facility] ([facility])[address] [place], [place] [address]Wlczrxgsgj [Mass/Vol]0.81 mg/dLNormal 0.70-1.30UnMemorial Health System Selby General HospitalComment on above:Performed By: #### [id number] ####[facility] ([facility])[address] [place], [place] [address]MXXDDMYDED FILTRATION RATE ML/MIN/1.73 SQ M.SIAQBXZHS44.4 mL/min/1.73m*2Normal>60.0 [facility] HealthComment on above:Result Comment: The [facility]???s estimated glomerular filtration rate (eG FR) will [...] group of individuals. Performed By: #### [id number] ####[facility] ([facility])[address] [place], [place] [address]Reunprv [Mass/Vol]96 mg/wDAviulh95-074UavaujcppiMemorial Health System Selby General HospitalComment on above:Performed By: #### [id number] ####[facility] ([facility])[address] [place], [place] [address]Uugozjkzs [Moles/Vol]3.0 mmol/LLow 3.5-5.1UnMemorial Health System Selby General HospitalComment on above:Performed By: #### [id number] ####[facility] ([facility])[address] [place], [place] [address]Xpffpr [Moles/Vol]136 mmol/XJvhely154-641GhjmjxzkfnMemorial Health System Selby General HospitalComment on above:Performed By: #### [id number] ####[facility] ([facility])[address] [place], [place] [address]Dmog nitrogen [Mass/Vol]12 mg/dLNormal7-25UnMemorial Health System [facility] General HospitalComment on above:Performed By: #### [id number] ####[facility] ([facility])[address] [place], [place] [address]NIIY NITROGEN/CREATININE (MASS RATIO) IN SER/PLAS14.8NormalUniKettering Health DaytonComment on above: Performed By: #### [id number] ####[facility] ([facility])[address] [place], [place] [address]WCFzn 57-66-3146Uwryjeggmvm distribution width (RBC) [Ratio]14.3 % Fvwaxa89.5-15.0UnMemorial Health System Selby General HospitalComment on above:Performed By: #### [id number] ####[facility] ([facility] [address] ERYTHROCYTE MEAN CORPUSCULAR HEMOGLOBIN CONCENTRATION (G/DL) BY QYRODKDRX56.2 g/yGTpgxme57.0-35.0UnMemorial Health System Selby General HospitalComment on above:Performed By: #### [id number] ####[facility] ([facility])[address] [place] [address]Fzsdsotlvm (Bld) [Volume fraction]33.9 %Low39.0-50.0UnMemorial Health System Selby General HospitalComment on above:Performed By: #### [id number] ####[facility] ([facility])[address] [place] [address]Nxdtbsubsk (Bld) [Mass/Vol]11.6 g/dL Low13.0-17.0UnMemorial Health System Selby General HospitalComment on above:Performed By: #### [id number] ####[facility] ([facility])[address] [place] [address]NXY (RBC) [Entitic mass]32.0 hxOmzbzw09.0-33.0UnMemorial Health System [facility] Hospital Comment on above:Performed By: #### [id number] ####[facility] ([facility])[address] [place] [address]AHR (RBC) [Entitic vol]93.4 kKTeohxr24.0-98.0 [facility] HealthComment on above:Performed By: #### [id number] ####[facility] ([facility])[address] [place] [address]EESKLHDYV (10*3/UL) IN BLOOD AUTOMATED KKJEX034 10*3/iLUaokbz003-530ArarsijhojMemorial Health System Selby General HospitalComment on above:Performed By: #### [id number] ####[facility] ([facility])[address] [place] [address]QCY (Bld) [#/Vol]3.63 10*6/uLLow 4.20-5.70UnUniversity Hospitals TriPoint Medical Centeredo Medical CenterComment on above:Performed By: #### [id number] ####[facility] ([facility])[address] [place] [address]VHW (Bld) [#/Vol]6.13 10*3/uLNormal4.00-10.60UnMemorial Health System [facility] HospitalComment on above:Performed By: #### [id number] ####[facility] ([facility])[address] [place] [address]VYvn 21-92-5786PWVtsdxeIlyajkwbyp of [facility] Orders Onlyon 54-58-9524Oohdnk OnlyNormalUniversRegional Medical Center POTASSIUMon 86-25-6104Ujdmvxbrd [Moles/Vol]3.4 mmol/LLow3.5-5.1Mercy HealthComment on above:Performed By: #### [id number] ####[facility] ([facility])[address] [place] [address]26mr 71-15-512637VtzfagAvita Health System Ontario Hospital30NormalUniversRegional Medical Center ANESon 90-66-1132RATEAlkwleXgvsuyjdep of [facility] Medical CenterHPon 83-83-3362JN [facility] HospitalNURSNOTEon 63-34-4746WDTZUJCHIqlixmAvita Health System Ontario HospitalNURSNOTECHG wipes and betadine nasal swabs completed.NormalMercy HealthTYPE AND SCREENon 02-06-2025 AB SCREENNegativeNormalUniversRegional Medical CenterComment on above: Performed By: #### [id number] ####[facility],ABO group Nom (Bld)[facility] HospitalComment on above:Performed By: #### [id number] ####[facility],RH TYPE IN BLOODPositiveNormalUniKettering Health DaytonComment on above:Performed By: #### [id number] ####[facility],Orders Only on 52-04-9431Ivtyxw OnlyNormalUniversity OhioHealthALL BASIC METABOLIC PANELon 01-38-7311Tbkvh gap [Moles/Vol]16.6 mmol/LNOMS Healthcare Calcium [Mass/Vol]9.2 mg/dL8.5 - 10.1 mg/dLNOMS HealthcareChloride [Moles/Vol] 101 mmol/L98 - 107 mmol/LNOMS HealthcareCO2 [Moles/Vol]24.7 mmol/L21.0 - 32.0 mmol/LNOMS HealthcareCreatinine [Mass/Vol]0.9 mg/dL0.70 - 1.30 mg/dLNOMS HealthcareGFR/1.73 sq M.predicted CKD-EPI (S/P/Bld) [Vol rate/Area]>60>=60 mL/min/1.73m 2NOMS HealthcareGlucose [Mass/Vol]90 mg/dL74 - 106 mg/dLNONH HealthcareInterpretation and review of laboratory resultsAbnormalNOMS Healthcare Potassium [Moles/Vol]3.3 mmol/LLow3.5 - 5.1 mmol/LNOMS HealthcareSodium [Moles/Vol]139 mmol/L136 - 145 mmol/LNOMS HealthcareTBH EGFR-NON AF ROMANIAN>60 >=60 mL/min/1.73m 2NOMS HealthcareUrea nitrogen [Mass/Vol]13 mg/dL7.0 - 18.0 mg/dLNONH HealthcareUrea nitrogen/Creatinine [Mass ratio]14.4 mg/mgNOMS HealthcareCLINISYNCNOMS HealthcarePrep for Procedureon 30-69-7370Eddk for ProcedureNormalUniversity of Memorial Hermann Katy HospitalOrders Onlyon 10-11-8370Werpss OnlyNormalUniversity OhioHealthOrders Onlyon 24-21-3056Atbayl Only NormalUniversity OhioHealthCA ECHO DOPPLER COMPLETEon 12-05-[address] [address] Cardiology Report Signed Patient: KRISTY DOHERTY MR#: [id number] : 1955 Acct:[id number] Age/Sex: 69 / M ADM Date: 12/05/24 Loc: CARD Attending Dr: BORIS WILLIAM Ordering Physician: BORIS WILLIAM Date of Service: 12/05/24 Procedure(s): CA echo doppler complete Accession Number(s): [id number] cc: BORIS WILLIAM; Rudy King M.D. Patient Name: KRISTY DOHERTY MR#: [id number] : 1955 Exam Date: 12/05/2024 Ordering Doctor: [...] content not included)...TBHRadiology, Radiologist, - 12/05/[address] [address] Cardiology Report Signed Patient: KRISTY DOHERTY MR#: [id number] : 1955 Acct:[id number] Age/Sex: 69 / M ADM Date: 12/05/24 Loc: CARD Attending Dr: BORIS WILLIAM Ordering Physician: BORIS WILLIAM Date of Service: 12/05/24 Procedure(s): CA echo doppler complete Accession Number(s): [id number] cc: BORIS WILLIAM; Rudy King M.D. Patient Name: KRISTY DOHERTY MR#: [id number] : 1955 Exam Date: 12/05/2024 Ordering Doctor: [...] Signed By: 12/05/24 1545 DD/ 1544 TD/TT: Hand Slitter: BRIGETTE HealthcareRadiology Study observation (narrative)BRIGETTE HealthcareCA ECHO DOPPLER COMPLETEOrdered By: Radiologist Radiology on 66-35-8402[employer] Work Phone: aNESon 34-83-5447RQYJUdhgzvLpekrmypdc of [place] Medical CenterBASIC METABOLIC PANELon 31-94-5036Kuvja gap [Moles/Vol]19 mmol/L Normal7-20UnMemorial Health System Selby General HospitalComment on above:Performed By: #### [id number] ####[facility] (AKER)[address] [place], [place] [address]Xnydbpb [Mass/Vol]8.8 mg/dLNormal8.6-10.3UnMemorial Health System Selby General HospitalComment on above:Performed By: #### [id number] ####[facility] (BEAKER)[address] [place], [place] [address]Lndahbbv [Moles/Vol]101 mmol/YUdwnxs29-074UcmyghyppzMemorial Health System Selby General HospitalComment on above:Performed By: #### [id number] ####[facility] (AKER)[address], [place] [address]BL1 [Moles/Vol]24 mmol/LNormal 21-31UnMemorial Health System Selby General HospitalComment on above:Performed By: #### [id number] ####[facility] (AKER)[address], [place] [address]Rdcqoqnfus [Mass/Vol]0.93 mg/dLNormal0.70-1.30UnMemorial Health System Selby General HospitalComment on above:Performed By: #### [id number] ####[facility] ([facility])[address], [place] [address]KJFSAKSVLY FILTRATION RATE ML/MIN/1.73 SQ M.ABAVYSIEH48.9 mL/min/1.73m*2Normal>60.0UnMemorial Health System Selby General HospitalComment on above: Result Comment: [facility]???s estimated glomerular filtration rate (eGFR) will [...] anyone group of individuals.Performed By: #### [id number] ####[facility] ([facility])[address] [place], [place] [address]Efduahy [Mass/Vol]108 mg/wRKzpl68-039MjhjtezhoeMemorial Health System Selby General HospitalComment on above:Performed By: #### [id number] ####[facility] ([facility])[address] [place], [place] [address]Foakhpzrx [Moles/Vol]4.5 mmol/L Normal3.5-5.1UnMemorial Health System Selby General HospitalComment on above:Performed By: #### [id number] ####[facility] ([facility])[address] [place] [address] Sodium [Moles/Vol]139 mmol/XAgupmj223-462EoclzmagsfMemorial Health System Selby General Hospital Comment on above:Performed By: #### [id number] ####[facility] ([facility])[address] [place], [place] [address]Khif nitrogen [Mass/Vol]16 mg/dLNormal7-25 [facility] HealthComment on above:Performed By: #### [id number] ####[facility] ([facility])[address] [place], [place] [address]FLZK NITROGEN/CREATININE (MASS RATIO) IN SER/PLAS17.2NormalUnMemorial Health System Selby General HospitalComment on above:Performed By: #### [id number] ####[facility] ([facility])[address] [place], [place] [address]CSGvq 20-03-7517Jiwnnnnfpjx distribution width (RBC) [Ratio]13.9 %Fwxspf83.5-15.0UnMemorial Health System Selby General HospitalComment on above:Performed By: #### [id number] ####[facility] ([facility])[address] [place] [address]ALHGYHLFAOZ MEAN CORPUSCULAR HEMOGLOBIN CONCENTRATION (G/DL) BY PRLYQWJLD72.2 g/zMAhonjh68.0-35.0UnMemorial Health System Selby General HospitalComment on above:Performed By: #### [id number] ####[facility] ([facility])[address] [place] [address]Lxlsuhgevy (Bld) [Volume fraction]40.9 %Zvbxbp88.0-50.0UnMemorial Health System Selby General HospitalComment on above:Performed By: #### [id number] ####[facility] ([facility])[address] [place] [address]Wpwscsutef (Bld) [Mass/Vol]14.0 g/bTOelbcf27.0-17.0UnMemorial Health System Selby General HospitalComment on above:Performed By: #### [id number] ####[facility] ([facility])[address] [place] [address]EVQ (RBC) [Entitic mass] 31.5 apLgftke83.0-33.0UnMemorial Health System Selby General HospitalComment on above: Performed By: #### [id number] ####[facility] ([facility])[address] [place] [address]PVO (RBC) [Entitic vol]92.1 oYKawjmm26.0-98.0UnMemorial Health System Selby General HospitalComment on above:Performed By: #### [id number] ####[facility] ([facility])[address] [place] [address]KTCCDWETP (10*3/UL) IN BLOOD AUTOMATED URARP464 10*3/iFCcadof657-960EmvfgjhqekMemorial Health System Selby General Hospital Comment on above:Performed By: #### [id number] ####[facility] ([facility])[address] [place] [address]GQJ (Bld) [#/Vol]4.44 10*6/uLNormal4.20-5.70 [facility] HealthComment on above:Performed By: #### [id number] ####[facility] ([facility])[address] [place] [address]HBY (Bld) [#/Vol]6.95 10*3/uLNormal4.00-10.60Mercy HealthComment on above:Performed By: #### [id number] ####[facility] ([facility])[address] [place] [address]NJaf 54-09-3805HDZ&P reviewed. The patient was examined and there are no changes to the H&P.[facility] NURSNOTEon 40-09-3153NSYJTFLIIfiyopg swallow study completed and passed.[facility] HospitalNURSNOTENormalUniversRegional Medical CenterTelephoneon 68-72-3233IjfydtjxzFautkxNjiacbkzcn of [facility] Orders Onlyon 73-41-3862Qanmvn OnlyNormalUniversRegional Medical CenterHPon 49-42-7084FJJifoggNfslmalmuy of [facility] Grfaqi35kk 19-09-535653Fimqcepqy lab results from 08/16/2024: MD Zaida Currie MA His blood test was okay. Continue same and follow-up as planned. Patient made aware.[facility] HospitalALL BASIC METABOLIC PANELon 65-04-9943Cdreq gap [Moles/Vol]13.5 mmol/LNOMS HealthcareCalcium [Mass/Vol]8.8 mg/dL8.5 - 10.1 mg/dLNOMS HealthcareChloride [Moles/Vol]101 mmol/L 98 - 107 mmol/LNOMS HealthcareCO2 [Moles/Vol]29.5 mmol/L21.0 - 32.0 mmol/LNOMS HealthcareCreatinine [Mass/Vol]1.3 mg/dL0.70 - 1.30 mg/dLNOMS HealthcareGFR/1.73 sq M.predicted CKD-EPI (S/P/Bld) [Vol rate/Area]>60>=60 mL/min/1.73m 2NOMS HealthcareGlucose [Mass/Vol]129 mg/iSKqvn62 - 106 mg/dLNOMS Healthcare Interpretation and review of laboratory resultsAbnormalNOMS HealthcarePotassium [Moles/Vol]4 mmol/L3.5 - 5.1 mmol/LNOMS HealthcareSodium [Moles/Vol]140 mmol/L 136 - 145 mmol/LNOMS HealthcareTBH EGFR-NON AF BXANCWFQ42Ngz>=60 mL/min/1.73m 2 NOMS HealthcareUrea nitrogen [Mass/Vol]18 mg/dL7.0 - 18.0 mg/dLNONH Healthcare Urea nitrogen/Creatinine [Mass ratio]13.8 mg/mgNOMS HealthcareCLINISYNCNOMS HealthcareCA ECHO DOPPLER COMPLETEon 75-17-7169[place]yAlex[place] [address] Cardiology Report Signed Patient: KRISTY DOHERTY MR#: [id number] : 1955 Acct:[id number] Age/Sex: 68 / M ADM Date: 12/14/23 Loc: CARD Attending Dr: BORIS WILLIAM Ordering Physician: BORIS WILLIAM Date of Service: 12/14/23 Procedure(s): CA echo doppler complete Accession Number(s): [id number] cc: BORIS WILILAM; Rudy King M.D. Patient Name: KRISTY DOHERTY MR#: [id number] : 1955 Exam Date: 12/14/2023 Ordering Doctor: [...] 12/14/2023 at 19:11 Dictated By: BORIS WILLIAM (more content not included)...TBHRadiology, Radiologist, MD - 12/14/2023 [place] [address] Cardiology Report Signed Patient: KRISTY DOHERTY MR#: [id number] : 1955 Acct:[id number] Age/Sex: 68 / M ADM Date: 12/14/23 Loc: CARD Attending Dr: BORIS WILLIAM Ordering Physician: BORIS WILLIAM Date of Service: 12/14/23 Procedure(s): CA echo doppler complete Accession Number(s): [id number] cc: BORIS WILLIAM; Rudy King M.D. Patient Name: KRISTY DOHERTY MR#: [id number] : 1955 Exam Date: 12/14/2023 Ordering Doctor: [...] WILLIAM Signed By: 12/14/231911 DD/ 10 TD/TT: Hand Slitter: BRIGETTE [facility] - AkronRadiology Study observation (narrative)[facility] HospitalCA ECHO DOPPLER COMPLETEOrdered By: Radiologist Radiology on 40-71-3712[facility] Work Phone: aNA Antinuclear Antibodieson 79-12-8276Fxccsgmgdwo Abs, IFAPositiveCritically abnormal.[facility] HospitalComment on above:Result Comment: Negative <1:80 Borderline 1:80 Positive >1:80Performed By: #### COLLIN #### [facility] , #### PTH, CRP, CBC, ESR, URIC, CMP #### [facility] [address] [id number] USAHomogeneous Pattern1:80Normal.[facility] County HospitalComment on above:Result Comment: ICAP nomenclature: AC-1Performed By: #### COLLIN #### [facility] , #### PTH, CRP, CBC, ESR, URIC, CMP #### [facility] [address] [id number] USANote 1Normal.[facility] County HospitalComment on above:Result Comment: For more information about [...] titers Nucleosomes, Histones Drug-induced SLE Speckled Sm, BOILER/CHILLER OPERATOR, SCL-70, SLE,MCTD,PSS (diffuse form), SS-A/SS-B Sjogrens Nucleolar SCL-70, PM-1/SCL High titers Scleroderma, PM/DM Centromere Centromere PSS (limited form) w/Crest syndrome variable Nuclear Dot Sp100,t37-bfetxx Primary Biliary Cirrhosis Nuclear GP210, Primary Biliary Cirrhosis Membrane flor A,B,C Performed at: [facility] [address] [id number] Web Marketing Specialist: John Acosta PhD, Phone: [phone] PERFORMED BY: [place] [address] PATHOLOGIST RECREATION FACILITY ATTENDANT ROMULO SERRA M.D.Performed By: #### COLLIN #### [facility] , #### PTH, CRP, CBC, ESR, URIC, CMP #### [place] [address] USAC-Reactive Proteinon 82-50-0097C-Reactive Protein0.6 mg/dL High0.0-0.5FGenesis HospitalComment on above:Result Comment: PERFORMED BY: [place] [address] PATHOLOGIST RECREATION FACILITY ATTENDANT ROMULO SERRA M.D.Performed By: #### COLLIN #### [facility] , #### PTH, CRP, CBC, ESR, URIC, CMP #### [facility] [address] [place] [address] USAComplete Blood Count Auto Diffon 94-10-0566Lcakszgse (Bld) [#/Vol]0.1 10*3/uLNormal0.0-0.2FGenesis HospitalComment on above:Performed By: #### COLLIN #### [facility] , #### PTH, CRP, CBC, ESR, URIC, CMP #### [facility] [address] [place] [address] USABasophils/100 WBC (Bld)1.1 %Normal.[facility] HospitalComment on above:Performed By: #### COLLIN #### [facility] , #### PTH, CRP, CBC, ESR, URIC, CMP #### [place] [address] USAEosinophils (Bld) [#/Vol]0.3 10*3/uLNormal0.0-0.45 [facility] HospitalComment on above:Performed By: #### COLLIN #### [facility] , #### PTH, CRP, CBC, ESR, URIC, CMP #### [place] [address] USAEosinophils/100 WBC (Bld)4.2 %Normal.[facility] HospitalComment on above:Performed By: #### COLLIN #### [facility] , #### PTH, CRP, CBC, ESR, URIC, CMP #### [place] [address] USAErythrocyte distribution width (RBC) [Ratio]16.3 %High 12.0-14.8[facility] HospitalComment on above:Performed By: #### COLLIN #### [facility] , #### PTH, CRP, CBC, ESR, URIC, CMP #### [place] [address] USAHematocrit (Bld) [Volume fraction]40.2 %Tsvpoh62.8-50.0 [facility] HospitalComment on above:Performed By: #### COLLIN #### [facility] , #### PTH, CRP, CBC, ESR, URIC, CMP #### [place] [address] USAHemoglobin (Bld) [Mass/Vol]13.3 g/mKZajgsc99.0-17.0 [facility] HospitalComment on above:Performed By: #### COLLIN #### [facility] , #### PTH, CRP, CBC, ESR, URIC, CMP #### [address] [place] [address] USALymphocytes (Bld) [#/Vol]2.5 10*3/uLNormal1.00-4.8 [facility] HospitalComment on above:Performed By: #### COLLIN #### [facility] , #### PTH, CRP, CBC, ESR, URIC, CMP #### [facility] [address] [place] [address] USALymphocytes/100 WBC (Bld)31.3 %Normal.[facility] HospitalComment on above:Performed By: #### COLLIN #### [facility] , #### PTH, CRP, CBC, ESR, URIC, CMP #### [facility] [address] [place] [address] USAMCH (RBC) [Entitic mass]29.4 xhWpsgao58.5-35.2FGenesis HospitalComment on above:Performed By: #### COLLIN #### [facility] , #### PTH, CRP, CBC, ESR, URIC, CMP #### [facility] [address] [place] [address] USAMCV (RBC) [Entitic vol]88.7 sCQbzeyw00.5-101Del[facility] HospitalComment on above:Performed By: #### COLLIN #### [facility] , #### PTH, CRP, CBC, ESR, URIC, CMP #### [facility] [address] [place] [address] USAMean Corpuscular HGB Conc33.1 g/zGSjbnfg62.5-35.6FGenesis HospitalComment on above:Performed By: #### COLLIN #### [facility] , #### PTH, CRP, CBC, ESR, URIC, CMP #### [facility] [address] [place] [address] USAMonocytes (Bld) [#/Vol]1.0 10*3/uLHigh0.0-0.8[facility] HospitalComment on above:Performed By: #### COLLIN #### [facility] , #### PTH, CRP, CBC, ESR, URIC, CMP #### [facility] [address] [place] [address] USAMonocytes/100 WBC (Bld)12.9 %Normal.[facility] HospitalComment on above:Performed By: #### COLLIN #### [facility] , #### PTH, CRP, CBC, ESR, URIC, CMP #### [place] [address] USANeutrophils (Bld) [#/Vol]4.1 10*3/uLNormal1.8-7.7FGenesis HospitalComment on above:Performed By: #### COLLIN #### [facility] , #### PTH, CRP, CBC, ESR, URIC, CMP #### [facility] [address] [place] [address] USANeutrophils/100 WBC (Bld)50.5 %Normal.[facility] HospitalComment on above:Performed By: #### COLLIN #### [facility] , #### PTH, CRP, CBC, ESR, URIC, CMP #### [place] [address] USANRBC%0.0 /100{WBC}Normal0-0.5FGenesis HospitalComment on above:Performed By: #### COLLIN #### [facility] , #### PTH, CRP, CBC, ESR, URIC, CMP #### [facility] [address] [place] [address] USAPlatelet mean volume (Bld) [Entitic vol]8.7 fLNormal 6.6-10.1FGenesis HospitalComment on above:Performed By: #### COLLIN #### [facility] , #### PTH, CRP, CBC, ESR, URIC, CMP #### [facility] [address] [place] [address] USAPlatelets (Bld) [#/Vol]285 10*3/zCTpujoc534-959WaxlmlzilDelaware County HospitalComment on above:Performed By: #### COLLIN #### [facility] , #### PTH, CRP, CBC, ESR, URIC, CMP #### [place] [address] USARBC (Bld) [#/Vol]4.53 10*6/uLNormal3.90-5.60[facility] HospitalComment on above:Performed By: #### COLLIN #### [facility] , #### PTH, CRP, CBC, ESR, URIC, CMP #### [facility] [address] [place] [address] USAWBC (Bld) [#/Vol]8.0 10*3/uLNormal4.1-10.5FGenesis HospitalComment on above:Performed By: #### COLLIN #### [facility] , #### PTH, CRP, CBC, ESR, URIC, CMP #### [facility] [address] [place] [address] USAComprehensive Metabolic Panelon 45-64-3064Pcpcshb [Mass/Vol]4.2 g/dLNormal3.5-5.7FGenesis HospitalComment on above:Performed By: #### COLLIN #### [facility] , #### PTH, CRP, CBC, ESR, URIC, CMP #### [facility] [address] [place] [address] USAAlbumin/Globulin [Mass ratio]1.3 {ratio}NormalDelaware County HospitalComment on above:Performed By: #### COLLIN #### [facility] , #### PTH, CRP, CBC, ESR, URIC, CMP #### [facility] [address] [place] [address] USAALP [Catalytic activity/Vol]69 U/SCroern02-183WcudzsfacDelaware County HospitalComment on above:Performed By: #### COLLIN #### [facility] , #### PTH, CRP, CBC, ESR, URIC, CMP #### [facility] [address] [place] [address] USAALT [Catalytic activity/Vol]15 U/LNormal7-52[facility] HospitalComment on above:Performed By: #### COLLIN #### [facility] , #### PTH, CRP, CBC, ESR, URIC, CMP #### [facility] [address] [place] [address] USAAnion gap [Moles/Vol]9.9 mmol/LNormal6.0-15.0[facility] HospitalComment on above:Performed By: #### COLLIN #### [facility] , #### PTH, CRP, CBC, ESR, URIC, CMP #### [facility] [address] [place] [address] USAAST [Catalytic activity/Vol]24 U/XLzcwib94-53VwtepbagrDelaware County HospitalComment on above:Performed By: #### COLLIN #### [facility] , #### PTH, CRP, CBC, ESR, URIC, CMP #### [facility] [address] [place] [address] USABilirubin [Mass/Vol]0.4 mg/dLNormal0.3-1.0[facility] HospitalComment on above:Performed By: #### COLLIN #### [facility] , #### PTH, CRP, CBC, ESR, URIC, CMP #### [facility] [address] [place] [address] USACalcium [Mass/Vol]9.6 mg/dLNormal8.6-10.3FGenesis HospitalComment on above:Performed By: #### COLLIN #### [facility] , #### PTH, CRP, CBC, ESR, URIC, CMP #### [facility] [address] [place] [address] USAChloride [Moles/Vol]103 mmol/MUldxyo87-397AzjdneimgDelaware County HospitalComment on above:Performed By: #### COLLIN #### [facility] , #### PTH, CRP, CBC, ESR, URIC, CMP #### [facility] [address] [place] [address] USACO2 [Moles/Vol]29.5 mmol/VOkkvcw65.0-31.0[facility] HospitalComment on above:Performed By: #### COLLIN #### [facility] , #### PTH, CRP, CBC, ESR, URIC, CMP #### [facility] [address] [place] [address] USACreatinine [Mass/Vol]1.06 mg/dLNormal0.70-1.30[facility] HospitalComment on above:Performed By: #### COLLIN #### [facility] , #### PTH, CRP, CBC, ESR, URIC, CMP #### [facility] [address] [place] [address] USAGFR/1.73 sq M.predicted MDRD (S/P/Bld) [Vol rate/Area] mL/min/{1.73_m2}[facility] Medical CenterComment on above: Performed By: #### COLLIN #### [facility] , #### PTH, CRP, CBC, ESR, URIC, CMP #### [facility] [address] [place] [address] USAGlobulin (S) [Mass/Vol]3.2 g/dLNormNationwide Children's HospitalComment on above:Performed By: #### COLLIN #### [facility] , #### PTH, CRP, CBC, ESR, URIC, CMP #### [facility] [address] [place] [address] USAGlucose [Mass/Vol]81 mg/zHSrmtqt92-461BtcuotunyDelaware County HospitalComment on above:Result Comment: Random Glucose Reference Range is dependent on time and content of last meal. Glucose of more than 200 mg/dL in a nonstressed, ambulatory subject supports the diagnosis of Diabetes Mellitus. ADA recommended reference rangePerformed By: #### COLLIN #### [facility] , #### PTH, CRP, CBC, ESR, URIC, CMP #### [place] [address] USAPotassium [Moles/Vol]4.4 mmol/LNormal3.5-5.1FGenesis HospitalComment on above:Performed By: #### COLLIN #### [facility] , #### PTH, CRP, CBC, ESR, URIC, CMP #### [place] [address] USAProtein [Mass/Vol]7.4 g/dLNormal6.4-8.9[facility] HospitalComment on above:Performed By: #### COLLIN #### [facility] , #### PTH, CRP, CBC, ESR, URIC, CMP #### [facility] [address] [place] [address] USASodium [Moles/Vol]138 mmol/XEfsthm530-729UwoxgozmcDelaware County HospitalComment on above:Performed By: #### COLLIN #### [facility] , #### PTH, CRP, CBC, ESR, URIC, CMP #### [facility] [address] [place] [address] USAUrea nitrogen [Mass/Vol]19 mg/dLNormal7-25[facility] HospitalComment on above:Performed By: #### COLLIN #### [facility] , #### PTH, CRP, CBC, ESR, URIC, CMP #### [facility] [address] [place] [address] USAErythrocyte Sedimentation Rateon 31-95-1977GKW (Bld) [Velocity]43 mm/hHigh0-19[facility] HospitalComment on above: Result Comment: PERFORMED BY: [place] [address] PATHOLOGIST RECREATION FACILITY ATTENDANT ROMULO SERRA M.D.Performed By: #### COLLIN #### [facility] , #### PTH, CRP, CBC, ESR, URIC, CMP #### [place] [address] USAParathyroid Hormone Intacton 35-26-0056Bkbgkxwpbzf Hormone Iaunzc40.1 pg/cCGdmohq23-37OjkevwmkuDelaware County HospitalComment on above: Result Comment: PERFORMED BY: [place] [address] PATHOLOGIST RECREATION FACILITY ATTENDANT ROMULO SERRA M.D.Performed By: #### COLLIN #### [facility] , #### PTH, CRP, CBC, ESR, URIC, CMP #### [place] [address] USAUric Acidon 72-87-9947Quozv [Mass/Vol]3.5 mg/dLNormal 2.4-7.6FGenesis HospitalComment on above:Performed By: #### COLLIN #### [facility] , #### PTH, CRP, CBC, ESR, URIC, CMP #### [place] [address] USAXR foot LT 2Von 21-20-8746GS foot LT 2[facility] [place] [address] XRay Report Signed Patient: Kristy Doherty MR#: [id number] 81 : 1955 Acct:[id number] Age/Sex: 67 / M ADM Date: 12/03/22 Loc: ICXD Room: Type: [facility] Attending Dr: Kristy Beatty MD Copies to: [...] Bonnie Grewal M.D.12/03/2022 4:56 PM Dictation Location: [place] [address] Transcribed By: [facility] 12/03/221655 Dictated By: Bonnie Grewal II, MD 12/03/221654 Signed By: 12/03/221655[facility] Medical CenterXR hand BI 2Von 88-06-4013QI hand BI 2[facility] [place] [address] XRay Report Signed Patient: Kristy Doherty MR#: [id number] 81 : 1955 Acct:[id number] Age/Sex: 67 / M ADM Date: 12/03/22 Loc: [facility] Room: Type: [facility] Attending Dr: Kristy Beatty MD Copies to: [...] Bonnie Grewal M.D.12/03/2022 5:29 PM Dictation Location: [facility]-07 Transcribed By: SUSAN 12/03/221728 Dictated By: Bonnie Grewal II, MD 12/03/221650 Signed By: 12/03/22 172[facility] Medical CenterXR knee LT 2Von 43-78-8724UZ knee LT [facility] [address] [place] [address] [place] [address] XRay Report Signed Patient: Kristy Doherty MR#: [id number] 81 : 1955 Acct:[id number] Age/Sex: 67 / M ADM Date: 12/03/22 Loc: ICXD Room: Type: [facility] Attending Dr: Kristy Beatty MD Copies to: [...] Bonnie Grewal M.D.12/03/2022 4:54 PM Dictation Location: [facility]- Transcribed By: [facility] 12/03/221653 Dictated By: Bonnie Grewal II, MD 12/03/221652 Signed By: 12/03/221653[facility] Medical CenterANA by IFAon 11-04-2022 Antinuclear Antibodies, IFANegativeCleveland Clinic Mentor HospitalComment on above: Result Comment: Negative <1:80 Borderline 1:80 Positive >1:80 ICAP nomenclature: AC-0 For more information about Hep-2 cell patterns use ANApatterns.org, the official website for the International Consensus on Antinuclear Antibody (COLLIN) Patterns (ICAP).Performed By: #### CMADM, BMP #### [facility] [address] [place] [address] Dr. Skylar JansenSTREPTOLYSIN O AB (ASO)on 46-74-1504Xlphdbvinfkaejeo O Ab 326.2 IU/mLCritically high0.0-200.0[facility] HospitalComment on above: Performed By: #### ASOAB #### [facility] [address] [place] [address] Dr. Skylar ChadwickRHEUMATOID FACTORon 82-19-3314BE Latex Turbid.14.3 IU/mL Critically high<14.0The [facility] HospitalComment on above:Performed By: #### KEVIN, BMP #### [facility] [address] [place] [address] Dr. Skylar Jovel AUTO DIFFon 32-42-0125MRSH #0.1 103/ulNormal0.0-0.1The [facility] HospitalComment on above:Performed By: #### KEVIN, BMP #### [facility] [address] [place] [address] Dr. Skylar ChadwickBasophils/100 WBC (Bld)0.7 %Normal0.2-2.0The [facility] Comment on above:Performed By: #### CMADM, BMP #### [facility] [address] [place] [address] Dr. Skylar Chamorro #0.2 103/ulNormal0.0-0.7The [facility] HospitalComment on above: Performed By: #### CMADM, BMP #### [facility] [address] [place] [address] Dr. Skylar Burnhamosinophils/100 WBC (Bld)2.8 %Normal0.9-7.0The [facility] Comment on above:Performed By: #### KEVIN, BMP #### [facility] [address] [place] [address] Dr. Skylar Burnhamrythrocyte distribution width (RBC) [Ratio]15.1 %Critically high 11.0-15.0The [facility] HospitalComment on above:Performed By: #### CMADM, BMP #### [facility] [address] [place] [address] Dr. Skylar Vazquezatocrit (Bld) [Volume fraction]37.2 %Critically low42.0-54.0 The [facility] HospitalComment on above:Performed By: #### CMADM, BMP #### [facility] [address] [place] [address] Dr. Skylar ChadwickHemoglobin (Bld) [Mass/Vol]12.2 g/dLCritically low14.0-18.0[facility] HospitalComment on above:Performed By: #### CMADM, BMP #### [facility] [address] [place] [address] Dr. Skylar Ruiz #0.02 10e3/ulNormal0.00-0.03The [facility] HospitalComment on above:Performed By: #### CMADM, BMP #### [facility] [address] [place] [address] Dr. Skylar Ruiz %0.3 %Normal0.0-0.5The [facility] HospitalComment on above: Performed By: #### CMADM, BMP #### [facility] [address] [place] [address] Dr. Skylar Jackson #2.2 103/ulNormal1.2-3.8The [facility] HospitalComment on above:Performed By: #### CMADM, BMP #### [facility] [address] [place] [address] Dr. Skylar Moscosohocytes/100 WBC (Bld)30.3 %Mvjqig08.5-60.0The [facility] HospitalComment on above:Performed By: #### CMADM, BMP #### [facility] [address] [place] [address] Dr. Skylar HobbsUAL DIFF REQNONormalThe [facility] HospitalComment on above: Performed By: #### CMADM, BMP #### [facility] [address] [place] [address] Dr. Skylar Taylor (RBC) [Entitic mass]29.3 rtDglyew36.9-34.0The [facility] HospitalComment on above:Performed By: #### CMADM, BMP #### [facility] [address] [place] [address] Dr. Skylar Fraser (RBC) [Mass/Vol]32.8 g/zKHxacrf88.9-35.2The [facility] HospitalComment on above:Performed By: #### CMADM, BMP #### [facility] [address] [place] [address] Dr. Skylar Goff (RBC) [Entitic vol]89.2 cCJldoiy09.0-94.0The [facility] HospitalComment on above:Performed By: #### CMADM, BMP #### [facility] [address] [place] [address] Dr. Skylar Bhardwaj #0.8 103/ulNormal0.3-0.8The [facility] HospitalComment on above:Performed By: #### CMADM, BMP #### [facility] [address] [place] [address] Dr. Skylar Dasilvaocytes/100 WBC (Bld)10.9 %Normal1.7-12.0The [facility] Comment on above:Performed By: #### CMADM, BMP #### [facility] [address] [place] [address] Dr. Skylar Arreguin #4.0 103/ulNormal1.4-6.5The [facility] HospitalComment on above:Performed By: #### CMADM, BMP #### [facility] [address] [place] [address] Dr. Skylar Kumarutrophils/100 WBC (Bld)55.0 %Hhbbld19.0-75.0The [facility] HospitalComment on above:Performed By: #### CMADM, BMP #### [facility] [address] [place] [address] Dr. Skylar Carrington mean volume (Bld) [Entitic vol]10.3 fLNormal9.5-13.5The Galileo HospitalComment on above:Performed By: #### CMADM, BMP #### [facility] [address] [place] [address] Dr. Skylar ByrnesT289 103/zuMuflfz419-270Pmt [facility] on above: Performed By: #### CMADM, BMP #### [facility] [address] [place] [address] Dr. Skylar ChadwickRBC4.17 106/ulCritically low4.70-6.10The [facility] on above:Performed By: #### CMADM, BMP #### [facility] [address] [place] [address] Dr. Skylar ChadwickWBC7.2 103/ulNormal4.0-11.0The [facility] on above: Performed By: #### CMADM, BMP #### [facility] [address] [place] [address] Dr. Skylar Montgomery 98-19-5870TTV2.3 mg/dLCritically high<=1.0The [facility] on above:Performed By: #### URIC, CMP, CRP #### [facility] [address] [place] [address] Dr. Skylar Church 14(COMP METB)on 50-98-4472Asfoyhz [Mass/Vol]3.4 g/dLNormal 3.4-5.0The [facility] on above:Performed By: #### URIC, CMP, CRP #### [facility] [address] [place] [address] Dr. Skylar ChadwickAlbumin/Globulin [Mass ratio]0.7 {ratio}NormalThe [facility] on above:Performed By: #### URIC, CMP, CRP #### [facility] [address] [place] [address] Dr. Skylar Lr [Catalytic activity/Vol]72 U/MNgvxfg63-153Zwg [facility] on above:Performed By: #### URIC, CMP, CRP #### [facility] [address] [place] [address] Dr. Skylar KumarT [Catalytic activity/Vol]28 U/VVcibtr22-26Xeg [facility] HospitalComment on above:Performed By: #### URIC, CMP, CRP #### [facility] [address] [place] [address] [address] Skylar ChadwickAnion gap [Moles/Vol]9.9 mmol/LNormalThe [facility] HospitalComment on above:Performed By: #### URIC, CMP, CRP #### [facility] [address] [place] [address] [address] Skylar ChadwickAST [Catalytic activity/Vol]19 U/SOiqstu35-03Fea [facility] HospitalComment on above:Performed By: #### URIC, CMP, CRP #### [facility] [address] [place] [address] Dr. Skylar ChadwickBilirubin [Mass/Vol]0.3 mg/dLNormal0.2-1.0The [facility] Comment on above:Performed By: #### URIC, CMP, CRP #### [facility] [address] [place] [address] Dr. Skylar ChadwickCalcium [Mass/Vol]9.8 mg/dLNormal8.5-10.1The [facility] Comment on above:Performed By: #### URIC, CMP, CRP #### [facility] [address] [place] [address] Dr. Skylar ChadwickChloride [Moles/Vol]103 mmol/YFtgnnb50-105Ucy [facility] Comment on above:Performed By: #### URIC, CMP, CRP #### [facility] [address] [place] [address] Dr. Skylar ChadwickCO2 [Moles/Vol]31.0 mmol/PYofsgi73.0-32.0The [facility] Comment on above:Performed By: #### URIC, CMP, CRP #### [facility] [address] [place] [address] Dr. Skylar ChadwickCreatinine [Mass/Vol]1.14 mg/dLNormal0.70-1.30The [facility] HospitalComment on above:Performed By: #### URIC, CMP, CRP #### [facility] [address] [address] [address] Skylar BurnhamGFR-AF ROMANIAN>60Normal>=60The [facility] HospitalComment on above:Performed By: #### URIC, CMP, CRP #### [facility] Laboratory [address] [address] [address] Skylar BurnhamGFR-NON AF ROMANIAN>60Normal>=60The [facility] HospitalComment on above:Performed By: #### URIC, CMP, CRP #### [facility] [address] [address] [address] Skylar ChadwickGlobulin (S) [Mass/Vol]4.8 g/dLNormalThe [facility] HospitalComment on above:Performed By: #### URIC, CMP, CRP #### [facility] [address] [address] [address] Skylar ChadwickGlucose [Mass/Vol]88 mg/pLCxmnkb36-650QgaGreen Cross Hospital Comment on above:Performed By: #### URIC, CMP, CRP #### [facility] [address] [address] [address] Skylar ChadwickPotassium [Moles/Vol]3.9 mmol/LNormal3.5-5.1The [facility] Comment on above:Performed By: #### URIC, CMP, CRP #### [facility] [address] [address] [address] Skylar ChadwickProtein [Mass/Vol]8.2 g/dLNormal6.4-8.2[facility] Comment on above:Performed By: #### URIC, CMP, CRP #### [facility] [address] [address] [address] Skylar ChadwickSodium [Moles/Vol]140 mmol/XVwyqmy688-232Swc [facility] Comment on above:Performed By: #### URIC, CMP, CRP #### [facility] [address] [address] [address] Skylar ChadwickUrea nitrogen [Mass/Vol]18.0 mg/dLNormal7.0-18.0The [facility] HospitalComment on above:Performed By: #### URIC, CMP, CRP #### [facility] [address] [address] [address] Skylar ChadwickUrea nitrogen/Creatinine [Mass ratio]15.8 mg/mgNoOhioHealth Hardin Memorial HospitalComment on above:Performed By: #### URIC, CMP, CRP #### [facility] [address] [place] [address] Dr. Sklyar ChadwickSED RATE WESTERGRENon 51-63-4642TWB RATE67 mm/hrCritically high <=20The [facility] HospitalComment on above:Performed By: #### CMADM, BMP #### [facility] [address] [place] [address] Dr. Skylar ChadwickURIC ACID SERUMon 28-05-5889Zvzbt [Mass/Vol]3.3 mg/dLCritically low3.5-7.2The [facility] HospitalComment on above:Performed By: #### URIC, CMP, CRP #### [facility] [address] [place] [address] Dr. Skylar ChadwickXR KNEE LT 3Von [id number] KNEE LT 3VEXAM: XR KNEE LT 3V HISTORY: Effusion of joint of left knee COMPARISON: None. TECHNIQUE: 3 views FINDINGS: There is no acute fracture or dislocation. No radiopaque foreign body. The soft tissues are unremarkable. IMPRESSION: No acute fracture or dislocation. Electronically authenticated by: BONNIE RODRIGUES Date: 2022-11-02 14:46[facility] HospitalECHOCARDIO M/2D COMPLETEon [id number] M/2D COMPLETE Patient: KRISTY DOHERTY Exam Date: 10/28/2022 : 1955 Gender:M Ordering : DR BORIS WILLIAM M.D. Admission #: [id number] Family : Order #: [id number] CLICK HERE TO VIEW EXAM ECHOCARDIOGRAM REPORT [...] by: Boris William M.D. on 10/30/2022 at 19:19[facility] HospitalXR CHEST 2 Von [id number] CHEST 2 VEXAM: XR CHEST 2 V [...] Electronically authenticated by: ASIF COLVIN Date: 2022-09-05 15:49[facility] HospitalECHOCARDIO M/2D COMPLETEon [id number] M/2D COMPLETE Patient: KRISTY DOHERTY Exam Date: 08/18/2022 : 1955 Gender:M Ordering : MILDRED LOGAN Admission #: [id number] Family : Order #: [id number] CLICK HERE TO VIEW EXAM ECHOCARDIOGRAM REPORT [...] Area (VTI): 2.22 cm2, 2.22 cm2 Deceleration Jeff Davis: 1.61 m/s2 Pressure Half-Time: 686.93 ms Peak [...] by: Boris William M.D. on 08/19/2022 at 17:24[facility] HospitalCARDIAC BONNIE 3-6on [id number] [Catalytic activity/Vol]231 U/LNormal 39-308The [facility] HospitalComment on above:Performed By: #### CMREP #### [facility] [address] [place] [address] Dr. Skylar Lin.MB [Mass/Vol]1.39 ng/mLNormal<=3.60[facility] Comment on above:Performed By: #### CMREP #### [facility] [address] [address] [address] Skylar MoctezumaOP41.4 pg/mLNormal4.0-76.1The [facility] HospitalComment on above:Result Comment: CUT-OFF POINTS HAVE BEEN ESTABLISHED BASED ON THE FOURTH UNIVERSAL DEFINITIONS OF MYOCARDIAL INFARCTION. THE UPPER REFERENCE LIMIT (URL) OF TROPONIN, DEFINED THE 99TH PERCENTILE OF cTnI DISTRIBUTION IN A REFERENCE POPULATION, HAS BEEN CONFIRMED THE DECISION THRESHOLD FOR ND DIAGNOSIS.Performed By: #### CMREP #### [facility] [address] [place] [address] Dr. Skylar Lin [Catalytic activity/Vol]214 U/RDhnpxv63-217Clx [facility] HospitalComment on above:Performed By: #### CMREP #### [facility] [address] [place] [address] Dr. Skylar Lin.MB [Mass/Vol]1.37 ng/mLNormal<=3.60[facility] Comment on above:Performed By: #### CMREP #### [facility] [address] [place] [address] Dr. Skylar FlorTROP37.0 pg/mLNormal4.0-76.1The [facility] HospitalComhenry ford jackson hospital on above:Result Comment: CUT-OFF POINTS HAVE BEEN ESTABLISHED BASED ON THE FOURTH UNIVERSAL DEFINITIONS OF MYOCARDIAL INFARCTION. THE UPPER REFERENCE LIMIT (URL) OF TROPONIN, DEFINED THE 99TH PERCENTILE OF cTnI DISTRIBUTION IN A REFERENCE POPULATION, HAS BEEN CONFIRMED THE DECISION THRESHOLD FOR ND DIAGNOSIS.Performed By: #### CMREP #### [facility] [address] [place] [address] Dr. Skylar Jovel AUTO DIFFon [id number] #0.1 103/ulNormal0.0-0.1The [facility] HospitalComment on above:Performed By: #### CMADM, BMP #### [facility] [address] [place] [address] Dr. Skylar ChadwickBasophils/100 WBC (Bld)1.3 %Normal0.2-2.0[facility] Comment on above:Performed By: #### CMADM, BMP #### [facility] [address] [place] [address] Dr. Skylar Chamorro #0.6 103/ulNormal0.0-0.7The [facility] HospitalComment on above: Performed By: #### CMADM, BMP #### [facility] [address] [place] [address] Dr. Skylar Burnhamosinophils/100 WBC (Bld)7.1 %Critically high0.9-7.0The [facility] Centerment on above:Performed By: #### CMADM, BMP #### [facility] [address] [place] [address] Dr. Skylar Burnhamrythrocyte distribution width (RBC) [Ratio]13.0 %Dprgfa47.0-15.0 The [facility] HospitalComhenry ford jackson hospital on above:Performed By: #### CMADM, BMP #### [facility] [address] [place] [address] Dr. Skylar ChadwickHematocrit (Bld) [Volume fraction]37.2 %Critically low42.0-54.0 The [facility] HospitalComhenry ford jackson hospital on above:Performed By: #### CMADM, BMP #### [facility] [address] [place] [address] Dr. Skylar ChadwickHemoglobin (Bld) [Mass/Vol]13.2 g/dLCritically low14.0-18.0The [facility] on above:Performed By: #### CMADM, BMP #### [facility] [address] [place] [address] Dr. Skylar Ruiz #0.02 10e3/ulNormal0.00-0.03The [facility] on above:Performed By: #### CMADM, BMP #### [facility] [address] [place] [address] Dr. Skylar Ruiz %0.3 %Normal0.0-0.5The [facility] on above: Performed By: #### CMADM, BMP #### [facility] [address] [place] [address] Dr. Skylar Jackson #2.2 103/ulNormal1.2-3.8The [facility] on above:Performed By: #### CMADM, BMP #### [facility] [address] [place] [address] Dr. Skylar Lewismphocytes/100 WBC (Bld)27.4 %Mnvrwf47.5-60.0The [facility] HospitalComment on above:Performed By: #### CMADM, BMP #### [facility] [address] [place] [address] Dr. Skylar Funk DIFF REQNONormalThe [facility] HospitalComment on above: Performed By: #### CMADM, BMP #### [facility] [address] [place] [address] Dr. Skylar Fraser (RBC) [Entitic mass]32.4 tmPncmda01.9-34.0The [facility] HospitalComment on above:Performed By: #### CMADM, BMP #### [facility] [address] [place] [address] Dr. Skylar Fraser (RBC) [Mass/Vol]35.5 g/dLCritically high29.9-35.2The [facility] HospitalComment on above:Performed By: #### CMADM, BMP #### [facility] [address] [place] [address] Dr. Skylar Goff (RBC) [Entitic vol]91.2 cAGbrnvc70.0-94.0The [facility] HospitalComment on above:Performed By: #### CMADM, BMP #### [facility] [address] [place] [address] Dr. Skylar Bhardwaj #1.1 103/ulCritically high0.3-0.8[facility] Comment on above:Performed By: #### CMADM, BMP #### [facility] [address] [place] [address] Dr. Skylar Dasilvaocytes/100 WBC (Bld)14.1 %Critically high1.7-12.0The [facility] HospitalComment on above:Performed By: #### CMADM, BMP #### [facility] [address] [place] [address] Dr. Skylar Arreguin #4.0 103/ulNormal1.4-6.5The [facility] HospitalComment on above:Performed By: #### CMADM, BMP #### [facility] [address] [place] [address] Dr. Skylar Kumarutrophils/100 WBC (Bld)49.8 %Jctenk26.0-75.0The [facility] HospitalComment on above:Performed By: #### CMADM, BMP #### [facility] [address] [place] [address] Dr. Skylar Flowerslet mean volume (Bld) [Entitic vol]10.5 fLNormal9.5-13.5The [facility] HospitalComment on above:Performed By: #### CMADM, BMP #### [facility] [address] [place] [address] Dr. Skylar ChadwickPLT159 103/fhWbsoct841-313Esh [facility] HospitalComment on above: Performed By: #### GABYDM, BMP #### [facility] [address] [place] [address] Dr. Skylar ChadwickRBC4.08 106/ulCritically low4.70-6.10The [facility] HospitalComment on above:Performed By: #### CMADM, BMP #### [facility] [address] [place] [address] Dr. Skylar ChadwickWBC8.0 103/ulNormal4.0-11.0The [facility] HospitalComment on above: Performed By: #### GABYDM, BMP #### [facility] [address] [place] [address] Dr. Skylar ChadwickCovid-19 PCR ([facility])on 42-79-2740TIMK-CoV-2 (COVID-19) RNA DANDY+probe Ql (Unsp spec)Not detectedNormalNOT DETECTEDThe [facility] Comment on above:Result Comment: When diagnostic [...] for this test is supported by the [employer]'s declaration that [...] longer be used).Performed By: #### CVDTBH #### [facility] [address] [place] [address] Dr. Skylar GaliciaCARDIPorsha M/2D COMPLETEon 73-55-0138AVFBQKIVZY M/2D COMPLETE Patient: KRISTY DOHERTY Exam Date: 07/02/2022 : 1955 Gender:M Ordering : EDDIE SISTER Admission #: [id number] Family : DR RUDY KING . Order #: [id number] CLICK HERE TO VIEW EXAM ECHOCARDIOGRAM REPORT [...] by: Krystina Mills M.D. on 07/02/2022 at 14:11[facility] HospitalPROF CHEM 8 (BAS METB)on 28-11-9054Fvqem gap [Moles/Vol]8.4 mmol/LNormal The [facility] HospitalComment on above:Performed By: #### BMP #### [facility] [address] [place] [address] Dr. Skylar ChadwickCalcium [Mass/Vol]8.3 mg/dLCritically low8.5-10.1The [facility] HospitalComment on above:Performed By: #### BMP #### [facility] [address] [place] [address] Dr. Skylar ChadwickChloride [Moles/Vol]97 mmol/LCritically xaa26-593Crh [facility] on above:Performed By: #### BMP #### [facility] [address] [place] [address] Dr. Skylar ChadwickCO2 [Moles/Vol]32.9 mmol/LCritically high21.0-32.0The [facility] HospitalComment on above:Performed By: #### BMP #### [facility] [address] [place] [address] Dr. Skylar ChadwickCreatinine [Mass/Vol]1.08 mg/dLNormal0.70-1.30The [facility] on above:Performed By: #### BMP #### [facility] [address] [place] [address] Dr. Cheng ChangEGFR-AF ROMANIAN>60Normal>=60The [facility] HospitalComment on above:Performed By: #### BMP #### [facility] [address] [place] [address] Dr. Skylar BurnhamGFR-NON AF ROMANIAN>60Normal>=60The [facility] HospitalComment on above:Performed By: #### BMP #### [facility] [address] [address] [address] Skylar ChadwickGlucose [Mass/Vol]114 mg/dLCritically ydmk99-214Ani [facility] HospitalComment on above:Performed By: #### BMP #### [facility] [address] [address] [address] Skylar ChadwickPotassium [Moles/Vol]3.3 mmol/LCritically low3.5-5.1The [facility] HospitalComment on above:Performed By: #### BMP #### [facility] [address] [address] [address] Skylar ChadwickSodium [Moles/Vol]135 mmol/LCritically dqo032-084Cup [facility] HospitalComment on above:Performed By: #### BMP #### [facility] [address] [address] [address] Skylar ChadwickUrea nitrogen [Mass/Vol]13.0 mg/dLNormal7.0-18.0The [facility] HospitalComment on above:Performed By: #### BMP #### [facility] [address] [place] [address] Dr. Skylar Ladd nitrogen/Creatinine [Mass ratio]12.0 mg/mgNormalThe [facility] HospitalComment on above:Performed By: #### BMP #### [facility] [address] [address] [address] Skylar ChadwickAnion gap [Moles/Vol]8.6 mmol/LNormalThe [facility] HospitalComment on above:Performed By: #### CMADM, BMP #### [facility] [address] [address] [address] Skylar ChadwickCalcium [Mass/Vol]8.6 mg/dLNormal8.5-10.1The [facility] Comment on above:Performed By: #### CMADM, BMP #### [facility] [address] [place] [address] Dr. Skylar ChadwickChloride [Moles/Vol]96 mmol/LCritically osb53-247Xqv [facility] HospitalComment on above:Performed By: #### CMADM, BMP #### [facility] [address] [address] [address] Skylar ChadwickCO2 [Moles/Vol]34.2 mmol/LCritically high21.0-32.0The [facility] HospitalComment on above:Performed By: #### CMADM, BMP #### [facility] [address] [address] [address] Skylar ChadwickCreatinine [Mass/Vol]1.05 mg/dLNormal0.70-1.30The [facility] HospitalComment on above:Performed By: #### CMADM, BMP #### [facility] [address] [address] [address] Cheng ChangEGFR-AF ROMANIAN>60Normal>=60The [facility] HospitalComment on above:Performed By: #### CMADM, BMP #### [facility] [address] [address] [address] Skylar BurnhamGFR-NON AF ROMANIAN>60Normal>=60The [facility] HospitalComment on above:Performed By: #### CMADM, BMP #### [facility] [address] [address] [address] Skylar ChadwickGlucose [Mass/Vol]113 mg/dLCritically ldls38-562Mwh [facility] HospitalComment on above:Performed By: #### CMADM, BMP #### [facility] [address] [place] [address] Dr. Skylar ChadwickPotassium [Moles/Vol]2.8 mmol/LCritically low3.5-5.1The [facility] HospitalComment on above:Performed By: #### CMADM, BMP #### [facility] [address] [place] [address] Dr. Skylar ChadwickSodium [Moles/Vol]136 mmol/PClrufy454-451Tmr [facility] Comment on above:Performed By: #### CMADM, BMP #### [facility] [address] [address] [address] Skylar ChadwickUrea nitrogen [Mass/Vol]10.0 mg/dLNormal7.0-18.0The [facility] HospitalComment on above:Performed By: #### CMADM, BMP #### [facility] [address] [place], [place] [address] Dr. Skylar ChadwickUrea nitrogen/Creatinine [Mass ratio]9.5 mg/mgNormalThe [facility] HospitalComment on above:Performed By: #### CMADM, BMP #### [facility] [address] [address] [address] Skylar Kendrick CAROTID ART BILon 13-02-3525FC CAROTID ART BILEXAMINATION: US CAROTID ART SHIRA [...] Electronically authenticated by: ASIF JOHN Date: 2022-07-02 11:23[facility] HospitalCARDIAC BONNIE ADMITon [id number] [Catalytic activity/Vol]201 U/ZLxkhpm66-836Knz [facility] HospitalComment on above:Performed By: #### KEVIN, BMP #### [facility] [address] [place] [address] Dr. Skylar Lin.MB [Mass/Vol]1.31 ng/mLNormal<=3.60The [facility] Comment on above:Performed By: #### CMADM, BMP #### [facility] [address] [place] [address] Dr. Skylar ChadwickHSTROP34.8 pg/mLNormal4.0-76.1The [facility] Centerment on above:Result Comment: CUT-OFF POINTS HAVE BEEN ESTABLISHED BASED ON THE FOURTH UNIVERSAL DEFINITIONS OF MYOCARDIAL INFARCTION. THE UPPER REFERENCE LIMIT (URL) OF TROPONIN, DEFINED THE 99TH PERCENTILE OF cTnI DISTRIBUTION IN A REFERENCE POPULATION, HAS BEEN CONFIRMED THE DECISION THRESHOLD FOR ND DIAGNOSIS.Performed By: #### CMADM, BMP #### [facility] [address] [place] [address] Dr. Skylar ChadwickMYO336 ng/mLCritically zofc65-52Lwx [facility] HospitalComment on above:Performed By: #### CMADM, BMP #### [facility] [address] [place] [address] Dr. Skylar CastleC AUTO DIFFon 80-99-2120QBEK #0.1 103/ulNormal0.0-0.1The [facility] HospitalComment on above:Performed By: #### CBC #### [facility] [address] [place] [address] Dr. Skylar ChadwickBasophils/100 WBC (Bld)1.2 %Normal0.2-2.0[facility] Comment on above:Performed By: #### CBC #### [facility] [address] [place] [address] Dr. Skylar Chamorro #0.5 103/ulNormal0.0-0.7The [facility] HospitalComment on above: Performed By: #### CBC #### [facility] [address] [place] [address] Dr. Skylar Burnhamosinophils/100 WBC (Bld)6.3 %Normal0.9-7.0The [facility] Comment on above:Performed By: #### CBC #### [facility] [address] [place] [address] Dr. Skylar Burnhamrythrocyte distribution width (RBC) [Ratio]12.9 %Ydnnog59.0-15.0 The [facility] HospitalComment on above:Performed By: #### CBC #### [facility] [address] [place] [address] Dr. Skylar Vazquezatocrit (Bld) [Volume fraction]38.0 %Critically low42.0-54.0 The [facility] HospitalComment on above:Performed By: #### CBC #### [facility] [address] [place] [address] Dr. Skylar ChadwickHemoglobin (Bld) [Mass/Vol]13.5 g/dLCritically low14.0-18.0The [facility] HospitalComhenry [facility] on above:Performed By: #### CBC #### [facility] [address] [place] [address] Dr. Skylar Ruiz #0.02 10e3/ulNormal0.00-0.03The [facility] on above:Performed By: #### CBC #### [facility] [address] [place] [address] Dr. Skylar Ruiz %0.2 %Normal0.0-0.5The [facility] HospitalComment on above: Performed By: #### CBC #### [facility] [address] [place] [address] Dr. Skylar Jackson #2.6 103/ulNormal1.2-3.8The [facility] on above:Performed By: #### CBC #### [facility] [address] [place] [address] Dr. Skylar Lewismphocytes/100 WBC (Bld)30.5 %Jgfffy00.5-60.0The [facility] HospitalComment on above:Performed By: #### CBC #### [facility] [address] [place] [address] Dr. Skylar HobbsUAL DIFF REQNONormalThe [facility] HospitalComment on above: Performed By: #### CBC #### [facility] [address] [place] [address] Dr. Skylar Taylor (RBC) [Entitic mass]32.2 aaPksrkk57.9-34.0The [facility] HospitalComment on above:Performed By: #### CBC #### [facility] [address] [place] [address] Dr. Skylar Fraser (RBC) [Mass/Vol]35.5 g/dLCritically high29.9-35.2The [facility] HospitalComment on above:Performed By: #### CBC #### [facility] [address] [place] [address] Dr. Skylar Fraser (RBC) [Entitic vol]90.7 dLPndpnj38.0-94.0The [facility] HospitalComment on above:Performed By: #### CBC #### [facility] [address] [place] [address] Dr. Skylar Bhardwaj #1.2 103/ulCritically high0.3-0.8The [facility] Comment on above:Performed By: #### CBC #### [facility] [address] [place] [address] Dr. Skylar Dasilvaocytes/100 WBC (Bld)14.3 %Critically high1.7-12.0The [facility] HospitalComment on above:Performed By: #### CBC #### [facility] [address] [place] [address] Dr. Skylar Arreguin #4.0 103/ulNormal1.4-6.5The [facility] HospitalComment on above:Performed By: #### CBC #### [facility] [address] [place] [address] Dr. Skylar Kumarutrophils/100 WBC (Bld)47.5 %Mufpst86.0-75.0The [facility] HospitalComment on above:Performed By: #### CBC #### [facility] [address] [place] [address] Dr. Skylar Flowerslet mean volume (Bld) [Entitic vol]10.4 fLNormal9.5-13.5The [facility] HospitalComment on above:Performed By: #### CBC #### [facility] [address] [place] [address] Dr. Skylar ByrnesT175 103/pfEzylma034-026Vah [facility] HospitalComment on above: Performed By: #### CBC #### [facility] [address] [place] [address] Dr. Skylar ChadwickRBC4.19 106/ulCritically low4.70-6.10The [facility] HospitalComment on above:Performed By: #### CBC #### [facility] [address] [address] [address] Skylar ChadwickWBC8.4 103/ulNormal4.0-11.0[facility] HospitalComment on above: Performed By: #### CBC #### [facility] [address] [address] [address] Skylar ChadwickCT CSPINE WO CONon 88-03-2141SW CSPINE WO CONEXAMINATION: CT CSPINE WO CON [...] Electronically authenticated by: BRIAN BRADSHAW Date: 2022-07-01 21:26NoOhioHealth Hardin Memorial HospitalCT HEAD WO CONon 52-92-2708QY HEAD WO CONEXAMINATION: CT HEAD WO CON [...] of the sinuses are not in the llxzt-yy-mldo. The middle ears are aerated the mastoid [...] Electronically authenticated by: ADIEL KERN Date: 2022-07-01 20:44[facility] HospitalD-DIMERon 34-75-4081L-DIMER0.35 mg/L FEUNormal<=0.59Green Cross HospitalComment on above:Performed By: #### KEVIN, BMP #### [facility] [address] [place] [address] Dr. Skylar Rosenbaum-DIMER COMMENTSSEE BELOWLutheran Hospitalment on above:Result Comment: Increases in D-Dimer concentration [...] hospitalization. Performed By: #### KEVIN, BMP #### [facility] [address] [place] [address] Dr. Skylar ChadwickPROF CHEM 8 (BAS METB)on 50-70-3409Vhdil gap [Moles/Vol]13.5 mmol/LNormalThe Sweet Valley HospitalComment on above:Performed By: #### CMADM, BMP #### [facility] [address] [address] [address] Skylar ChadwickCalcium [Mass/Vol]8.8 mg/dLNormal8.5-10.1The [facility] Comment on above:Performed By: #### CMADM, BMP #### [facility] [address] [address] [address] Skylar ChadwickChloride [Moles/Vol]94 mmol/LCritically nwd99-217Eni [facility] HospitalComment on above:Performed By: #### CMADM, BMP #### [facility] [address] [address] [address] Skylar ChadwickCO2 [Moles/Vol]29.0 mmol/MQjprff26.0-32.0The [facility] Comment on above:Performed By: #### CMADM, BMP #### [facility] [address] [place] [address] Dr. Skylar ChadwickCreatinine [Mass/Vol]1.03 mg/dLNormal0.70-1.30The [facility] HospitalComment on above:Performed By: #### CMADM, BMP #### [facility] [address] [place] [address] Dr. Skylar BurnhamGFR-AF ROMANIAN>60Normal>=60The [facility] HospitalComment on above:Performed By: #### CMADM, BMP #### [facility] [address] [place] [address] Dr. Skylar BurnhamGFR-NON AF ROMANIAN>60Normal>=60The [facility] HospitalComment on above:Performed By: #### CMADM, BMP #### [facility] [address] [address] [address] Skylar ChadwickGlucose [Mass/Vol]111 mg/dLCritically oghz05-898Gav [facility] HospitalComment on above:Performed By: #### CMADM, BMP #### [facility] [address] [place] [address] Dr. Skylar ChadwickPotassium [Moles/Vol]2.5 mmol/LCritically low3.5-5.1The [facility] HospitalComment on above:Performed By: #### CMADM, BMP #### [facility] [address] [place] [address] Dr. Skylar ChadwickSodium [Moles/Vol]134 mmol/LCritically gug655-040Stl [facility] HospitalComment on above:Performed By: #### GABYDM, BMP #### [facility] [address] [place] [address] Dr. Skylar ChadwickUrea nitrogen [Mass/Vol]12.0 mg/dLNormal7.0-18.0The [facility] HospitalComment on above:Performed By: #### GABYDM, BMP #### [facility] [address] [place] [address] Dr. Skylar Ladd nitrogen/Creatinine [Mass ratio]11.7 mg/mgNoOhioHealth Hardin Memorial HospitalComment on above:Performed By: #### KEVIN, BMP #### [facility] [address] [place] [address] Dr. Skylar ChadwickXR CHEST 1 Von 84-67-3077AN CHEST 1 VCXR HISTORY: Shortness of breath COMPARISON: None. TECHNIQUE: 1 view chest submitted for review. FINDINGS: The lungs are adequately expanded without evidence of acute infiltrate or effusion. The cardiac silhouette measures within normal. Pulmonary vascularity is unremarkable. Osseous structures are within normal limits for age. IMPRESSION: No plain film evidence for acute cardiopulmonary disease. Electronically authenticated by: SOBEIDA MONCADA Date: 2022-07-01 20:44[facility]Outss[facility] Colonoscopyon 75-68-8526Dqvstkt Colonoscopy [id number]#1.00CD:127[facility] HospitalRAD - MISCon 21-51-2886MGO - MISC [id number]#1.00CD:[address] [place], [place] [address]XR COLON AIR CONTR.on 49-19-8345ME COLON AIR CONTR.EXAMINATION: XR COLON AIR CONTR. HISTORY: Colonoscopy abnormal COMPARISON: No relevant comparison available. FLUOROSCOPY TIME: Fluoro time measures 3 minutes 40 seconds and 22 images were obtained. TECHNIQUE: An air contrast barium enema examination was performed in the usual manner. No baseboard heating installer abdominal radiograph was performed. Standard level fluoroscopic mode of operation utilized. FINDINGS: COLON: No focal obstruction, mass or stricture. Mild diverticulosis distal descending and proximal sigmoid colon. OTHER: Negative. IMPRESSION: Mild diverticulosis, otherwise normal exam Electronically authenticated by: ASIF JOHN Date: 2022-01-28 14:[address] [place], [place] [address]Pre-Certification Formon 48-50-6892Avy-Certification Form [id number]#1.00CD:127[facility] HospitalConsent for Procedure/Surgeryon 17-96-6085Wcorloz for Procedure/Surgery [id number]#1.00CD:127[facility] HospitalAmbulatory Visit Summaryon 66-45-0908Ajtvyrgwdn Visit Summary KRISTY DOHERTY :1955 Visit Date:01/07/2022 [...] cancer Seasonal allergic rhinitis Vitamin D deficiency [facility] HospitalPhysician Referralon 12-19-2021 Physician [id number]#1.00CD:127Normal [facility] Vital Signs Date TimeVital SignValuePerforming IihcjjdxxMiqagiuu15-90-4742 13:08-0500Body zlaivx907.72 cmRudy King MD Work Phone: [phone]-[facility]11-05-2025 13:08-0500 Body mass index (BMI) [Ratio]25 kg/m2Rudy King MD Work Phone: [facility]11-05-2025 13:08-0500 Body aljfvz25.84 kgRudy King MD Work Phone: [facility]11-05-2025 13:08-0500 Diastolic blood cnwapnwo52 mm[Hg]Rudy King MD Work Phone: [facility]11-05-2025 13:08-0500 Heart rate76 /minRudy King MD Work Phone: 1(166)535-[facility]11-05-2025 13:08-0500 Respiratory rate16 /minRudy King MD Work Phone: [phone])113-[facility]11-05-2025 13:08-0500 SaO2% (BldA) [Mass fraction]98 %Rudy King MD Work Phone: [phone])[address]11-05-2025 13:08-0500 Systolic blood myyozawe50 mm[Hg]Rudy King MD Work Phone: 1(469)[address] [place], [place] 1545010-29-2025 09:34-0400 Body qjiewu142.72 cmRudy King MD Work Phone: 1(711)[address]10-29-2025 09:34-0400 Body mass index (BMI) [Ratio]25.7 kg/m2Rudy King MD Work Phone: 1(103)[address] [place], [place] 1545010-29-2025 09:34-0400 Body omipodsdyuj81.1 [degF]Rudy King MD Work Phone: 1(933)[address] [place], [place] 1545010-29-2025 09:34-0400 Body uzfryh92.65 kgRudy King MD Work Phone: 1(609)[address] [place], [place] 1545010-29-2025 09:34-0400 Diastolic blood wmsayjgz71 mm[Hg]Rudy King MD Work Phone: 1(075)[address]10-29-2025 09:34-0400 Heart antf722 /minRudy King MD Work Phone: 1(336)[address]10-29-2025 09:34-0400 Respiratory rate20 /minRudy King MD Work Phone: 1(757)[address] [place], [place] 1545010-29-2025 09:34-0400 SaO2% (BldA) [Mass fraction]97 %Rudy King MD Work Phone: [phone])[address]10-29-2025 09:34-0400 Systolic blood fdfwansj514 mm[Hg]Rudy King MD Work Phone: [phone])[address]07-21-2025 11:01-0400 Body vuvqmu171.7 cmMariah Lange MD Work Phone: [facility] HospitalPfxisfonek96-59-1157 11:01-0400Body mass index (BMI) [Ratio]28.59 kg/t3ZzakfiMariah Lange MD Work Phone: [facility] HospitalQjquhygeuz72-80-3525 11:01-0400Body ydgxsa95.28 kgMariah Lange MD Work Phone: [facility] HospitalLgtjkldqwc52-87-9016 11:01-0400Diastolic blood gurabvzt50 mm[Hg]Mariah Lange MD Work Phone: 1(803)166-[facility] HospitalAftvkrjuvw01-04-9438 11:01-0400Heart rate88 /min Mariah Lange MD Work Phone: [facility] HospitalHbpvcwilzf15-50-6174 11:01-0400Systolic blood ufugojlv579 mm[Hg]Mariah Lange MD Work Phone: [facility] HospitalFsibvtflpz35-36-7714 15:08-0400Body .7 cmRudy King MD Work Phone: 1(778)627-[address] [place], [place] [address]Joxwfakbdc80-34-0125 15:08-0400Body mass index (BMI) [Ratio]29.5 kg/m2Rudy King MD Work Phone: 1(525)618-[address] [place], [place] [address]Vgkxlezykt35-88-8779 15:08-0400Body temperature 97.81 [degF]uRdy King MD Work Phone: [facility] HospitalJflmfroqyc55-30-8740 15:08-0400Body kg Rudy King MD Work Phone: 1(458)856-[address] [place], [place] [address]Fzubydqenc77-48-7941 15:08-0400Diastolic blood wrnsrleu59 mm[Hg]Rudy King MD Work Phone: [facility] HospitalSvyqqfwvom17-18-6466 15:08-0400Heart rate94 /min Rudy King MD Work Phone: [facility] HospitalEmubbrdfvc52-17-2726 15:08-0400Respiratory rate18 /minRudy King MD Work Phone: 1(989)328-[address] [place], [place] [address]Shdmdiimyb89-19-4014 15:08-5120LaP1% (BldA) [Mass fraction]96 %Rduy King MD Work Phone: [facility] Jgmprspzkl30-37-7689 15:08-0400Systolic blood izduqccm090 mm[Hg]Rudy King MD Work Phone: [facility] Healthcare Encounters Encounter DateEncounter TypeCare ProviderFacilityStart: 05-23-2025 End: 87-92-5983vslsdckyqiBrby Naderer MD Work Phone: [phone]-ZeeuukirnDoctors Hospital [facility] SandStart: 05-23-2025 End: 81-62-4126Vuymtom encounter procedureCelina Garner MD-[facility] Work Phone: Start: 42-02-3745dhvryrjldaOCTIMercy Health Tiffin Hospitaltart: 05-16-2025 End: 36-34-1904uaggqfyrppPlwo Naderer MD Work Phone: -[facility] ClydeStart: 05-16-2025 End: 81-71-9389Vycylmn encounter procedureRudy King MD-[facility] Work Phone: Start: 42-22-9528Bwa-patient / Non-visitAdam C Riky SENIOR INSIGHT MANAGER-C-[facility] Work Phone: Start: 05-14-2025 End: 37-71-0993bsnnwzsjosUVQR [facility]red Healthcaretart: 28-33-4977hzgrwhnwthSIQPMercy Health Tiffin Hospitaltart: 84-47-6614Jek-patient / Non-visitOutside Provider-[facility] Work Phone: Start: 29-02-0837Pnoaacahis and management of inpatientRAJESH DAYAMIOhioHealthtart: 05-03-2025 Evaluation and management of inpatientOMAR HORANIUniversity Hospitals Geneva Medical Centertart: 54-62-3362Zkkghvwjtw and management of inpatientBLAIR ROCÍO [facility] Centertart: 60-37-6129Gcqhbzqcvy and management of inpatientAADIL MAQSMercy Health Tiffin Hospitaltart: 04-28-2025 Evaluation and management of inpatientAADIL MATwin City Hospitaltart: 50-11-8362Ljnqftunfu and management of inpatientAADIL LINETTE [facility] Centertart: 25-89-5327Esayyqhkqm and management of inpatientOMAR HORANIUniversity Hospitals Geneva Medical Centertart: 04-23-2025 Evaluation and management of inpatientSAMAR [facility]ORIAL [facility] CENTRALYUniversity Hospitals Geneva Medical Centertart: 25-57-3786Czfgkcihww and management of inpatientIDREES KACEYDelaware County Hospitaltart: 40-39-1329Zfsmzytsqc and management of inpatientCHRISTOPHER [facility]itt[facility] Hospitaltart: 04-19-2025 Evaluation and management of inpatientCHRISTOPHER [facility] Hospitaltart: 41-57-9262Mgxkrcfyyy and management of inpatientSAMER J [facility] Centertart: 03-45-1736Eotesldqcc and management of inpatientKYLE WESTKettering Health Washington Townshiptart: 04-19-2025 End: 62-75-0692Tjhxxpipvs and management of inpatientCALEB T JOSE MANUELUC Healthtart: 58-10-1611Grs-patient / Non-visitDaryl T Austin KLEIN-[facility] Work Phone: Start: 97-18-2133Olp-patient / Non-visitDaryl T Austin KLEIN-[facility] Work Phone: Start: 04-03-2025 End: 05-50-1940iqtyczabwdPYAZPFWOhioHealth O'Bleness Hospitaltart: 03-26-2025 End: 39-43-9308cplkkqpvatRTYSTEACommunity Regional Medical Centertart: 77-33-9898fgqpdrcrdgCJIKS GRUBBUniMartins Ferry Hospitaltart: 15-48-7431emnbhaoualYBYLGMcKitrick Hospitaltart: 02-26-2025 End: 50-60-0124czabtxsoxsZPFLOT [facility] Start: 40-29-6665smmehsecifAZRCSelect Medical OhioHealth Rehabilitation Hospitaltart: 39-14-2887vqymylwfvcUNOSQAshtabula County Medical Centertart: 59-24-3611Xmepfcsqvr and management of inpatientMELINDA [facility] Hospitaltart: 02-06-2025 End: 72-80-4342Auuogmtvdr and management of inpatientGEORGE [facility] Hospitaltart: 02-05-2025 End: 51-04-6272Gjkzvqstacey Lange MD Work Phone: noms CI ENTStart: 02-05-2025 End: 66-07-4747Tpmdpmdolly Lange MD Work Phone: noms CI ENTStart: 02-05-2025 End: 92-79-9721Keifuu outpatient visit 15 minutesMariah Lange MD Work Phone: noms CI ENTComment on above:Nasal polyp (Primary Dx) Start: 02-05-2025 End: 28-18-9453ojcldbszvhLOHSRF H TIMMISNot AvailableStart: 01-30-2025 End: 58-42-9889Gsvzxtadx Result EncounterGeneric External Data ProviderNOMS External Department UnsolicitedStart: 01-30-2025 End: 47-35-6092Vgaobpzne Result EncounterGeneric External Data ProviderNOMS External Department UnsolicitedStart: 16-99-0996hitwdhebmyNBHPSelect Medical OhioHealth Rehabilitation Hospitaltart: 12-12-2024 End: 84-48-7259Ixpdsp outpatient visit 25 minutesRudy King MD Work Phone: noms CWM FMComment on above:Benign essential hypertension (CMS/HCC) (Primary Dx); Chronic HFrEF (heart failure with reduced ejection fraction) (CMS/HCC); Mild persistent asthma without complication (CMS/HCC); Paroxysmal atrial fibrillation (CMS/HCC)Start: 12-12-2024 End: 74-37-0852tpflnoulycGKGA NADERERNot AvailableStart: 12-12-2024 End: 50-33-4909Xtgwzhdolly King MD Work Phone: noms [facility] FMStart: 12-12-2024 End: 81-74-1528Rrmheedolly King MD Work Phone: noms [facility] FMStart: 12-05-2024 End: 52-99-9219Pvrykjbqw Result EncounterGeneric External Data ProviderNOMS External Department UnsolicitedStart: 12-05-2024 End: 60-26-8720Nophvrpsq Result EncounterGeneric External Data ProviderNOMS External Department UnsolicitedStart: 12-01-2024 End: 22-84-3723ixeoahcyndVHXXWMSalem City Hospital Start: 50-34-0575olfchbmhtkTVOHSelect Medical OhioHealth Rehabilitation Hospitaltart: 96-81-7081qtoivaqsveJSICAUGeorgetown Behavioral Hospitaltart: 11-07-2024 End: 59-80-7224wivhvjhnvgLQISOhioHealthtart: 56-21-9367irydpkazblUKUNMercy Health Tiffin Hospitaltart: 62-47-5109tztzuiubufXKNHOhioHealthtart: 05-40-9069pbcsamvixzUOUIMercy Health Tiffin Hospitaltart: 08-16-2024 End: 73-60-2113Qytihkrbv Result EncounterGeneric External Data ProviderNOMS External Department UnsolicitedStart: 08-16-2024 End: 07-25-8273Ljmdiyisz Result EncounterGeneric External Data ProviderNOMS External Department UnsolicitedStart: 45-35-0392lajprgwtdrMNRDOhioHealthtart: 92-60-1943Ryrgttnxx for preprocedural cardiovascular examinationMercy Health Tiffin Hospitaltart: 33-13-0357xuounuubbqPMIATrinity Health System Twin City Medical Centertart: 07-03-2024 End: 32-39-8538mozjdpqmtaNBNKXE MOUKAMercy Health St[facility] Start: 95-95-7953jauhirivzlVQVZMercy Health Tiffin Hospitaltart: 75-92-7127lthleguwpjFQESMercy Health Tiffin Hospitaltart: 61-29-4331ytbrdtimqmBKFCMercy Health Tiffin Hospitaltart: 41-71-8723frkmqiuzqwHKXAMercy Health Tiffin Hospitaltart: 12-14-2023 End: 87-28-2892Uyohwgwde Result EncounterGeneric External Data ProviderNOMS External Department UnsolicitedStart: 12-14-2023 End: 34-11-6544Hacqfgusw Result EncounterGeneric External Data ProviderNOMS External Department UnsolicitedStart: 12-03-2022 End: 27-11-0482lavantzqudVzvbwt HaladayFacility:[facility] Campustart: 76-83-8139rsmeruvzedZK RUDY A NADERERFacility:E2Rsovu: 11-02-2022 End: 12-62-9042aokgcvdjvtDHP APOORVA AICHHOLZFacility:Y0Jpsim: 10-28-2022 End: 97-31-7653hlymxjpeouNE BORIS MOUKARBELFacility:T8Arywt: 09-05-2022 End: 67-46-9544kanynfoontSHBC CHACKOFacility:Z6Hztqg: 61-53-0018slinllzsqaXD BORIS MOUKARBELFacility:O3Oegnt: 08-18-2022 End: 19-39-8234xgyzewlfbsUT RUDY A NADERERFacility:K2Jewbl: 08-18-2022 End: 04-36-7035liwxqhywxzKX RUDY A NADERERFacility:L0Waqxl: 08-03-2022 End: 24-28-8462erechpvdokNO RUDY A NADERERFacility:Y6Awtip: 07-02-2022 End: 98-88-6524hfeuemjryoVL MARC A NADERERFacility:F9Uouls: 01-28-2022 End: 62-17-0423mkcoshigbnLP MARC A NADERERFacility:H1 Procedures DateProcedureProcedure DetailPerforming ClinicianStart: 53-83-7457Kvxnlh-up visitRAPAULY CASTILLOStart: 94-77-5053Nsjubs-up visitFollow-upCHUCK MCBRIDEERStart: 63-96-6425FHM BASIC METABOLIC PANELGeneric External Data ProviderStart: 41-22-5914SQ ECHO DOPPLER COMPLETEGeneric External Data ProviderStart: 54-87-0546Kdhakc-up visitRAPAULY STOCKRUSTAMStart: 86-53-7200MIW BASIC METABOLIC PANEL Generic External Data ProviderStart: 29-52-4758Mitnbv-up visitRAPAULY STOCKPTAStart: 61-33-9183FU ECHO DOPPLER COMPLETEGeneric External Data ProviderStart: 83-49-3054JaesavnlewvMhuqqpa Provider Plan of Treatment DateCare ActivityDetailAuthorStart: 06-19-2025 End: 64-84-6100Hioanzi encounter wmkpfqatq82/02/2025 10:00 AM EST [facility] [address] [place] [address] Rudy King MD [address] [place] [address] [facility] FMStart: 48-34-7514Tboydmigr vaccinationNOMS HealthcareStart: 02-05-2025 End: 28-88-0157Iiwwdzv encounter procedureNOMS CI ENTComment on above:Arrived Start: 12-12-2024 End: 85-71-8882Eitwbnj encounter procedureNOMS CWM FMComment on above:Arrived Start: 95-57-3754Nfmrgmixn vaccinationInfluenza Vaccine (#1)[facility] Start: 69-36-0728Wzgvkvjkz for malignant neoplasm of colonNOMS HealthcareStart: 84-22-3169Ouspjwhmickr Vaccine: 65+ Years (1 of 2 - PCV)Pneumococcal Vaccine: 65+ Years (1 of 2 - PCV)[facility] HealthcareStart: 37-47-2717Vtikqkhptwpd Vaccine: 65+ Years (1 of 2 - PCV)Pneumococcal Vaccine: 65+ Years (1 of 2 - PCV)[facility] HealthcareStart: 03-04-1956Medicare Annual Wellness (AWV)Medicare Annual Wellness (AWV)[facility] HealthcareStart: 79-53-7222Ujkgkfiiw for malignant neoplasm of colonNONH HealthcareRenal function 2000 panel - Serum or PlasmaDelaware County HospitalUS Kidney - bilateralHca [facility] Immunizations Immunization DateImmunizationNotesCare MogoahmcKsgfnzxj09-68-5370lnwxazbnup, tetanus toxoids and pertussis vaccineGeneric ProviderEastern [facility] State HospitalIbpublsbpj55-68-2319 Pfizer Purple Cap SARS-CoV-2 VaccinationGeneric [facility] 03-19-9422Cjnedu Purple Cap SARS-CoV-2 VaccinationGeneric [facility] HealthcareOhklmlsben78-70-5767tjuhoagps virus vaccine, unspecified formulationGeneric [facility] Payers DatePayer CategoryPayerPolicy [id number]-pay2023Medicare (Managed Care)[id number] [id number] [id number] 2.840.1.724996.3.57[id number] 2.840.1.771589.3.57[id number] 2.16.840.1.482117.3.57[id number] 2.16840.1.111400.3.57[id number] 2.16.840.1.392429.3.57[id number] 2.16.840.1.819000.3.57[id number] 2.16.840.1.129510.3.57[id number] 2.16.840.1.728751.3.57[id number] 2.16.840.1.530095.3.579.[id number] 2.16.840.1.280573.3.57[id number] 2.16.840.1.411485.3.57[id number] 2.16840.1.126[id number] 2.16.840.1.442328.3.579.2.301NqznstqGDB140H69692 Social History DateTypeDetailFacilityStart: 41-84-9436Odviqcm smoking status NHISNever smoked tobaccoNOMS HealthcareStart: 39-81-3896Gqvjfsm use and exposureUser of smokeless tobaccoNOMS HealthcareHistory of tobacco useChews TobaccoNOMS HealthcareStart: 07-22-2023 End: 88-58-3720Ynvjxuben beverage intakeCurrent drinker of alcohol (finding)NOMS HealthcareStart: 07-22-2023 End: 21-50-4663Lboafel of Social functionNOMS HealthcareStart: 07-22-2023 End: 46-13-6589Aqzavos use panelNOMS HealthcareStart: 40-29-4341Ffiiagf Comment caffeine intake: 1-2 cups per day of coffee/teaNOMS HealthcareStart: 1955 Sex assigned at birthNot on fileNOMS HealthcareStart: 05-16-2025 End: 73-16-8260Azwfnpu smoking status NHISEx-smoker (finding)[facility] CampusexMale (finding)[facility] Campustart: 25-42-1231Sca [facility]igned At [facility] Hospitaltart: 49-93-1793OzlZyycESBB Healthcare Clinical Notes 01-07-2022 to 05-16-2025 Note Date & IgxsWdwtMerupaqa76-18-8617 Evaluation note* Diagnosis Onset Date Resolution Status Admit Date Benign essential hypertension acuteOctober 2024 9:26amChronic HFrEF (heart failure with reduced ejection fraction)acuteOctober 2024 9:26amCoronary artery disease involving [place] coronary artery of [place] heart wiacuteOctober 2024 9:26amNonischemic cardiomyopathyacuteOctober 2024 9:26amPAF (paroxysmal atrial fibrillation) acuteOctober 2024 9:26amPericardial effusionacuteOctober 2024 9:26am Acute kidney injuryacuteNovember 2024 1:04pmAnemiaacuteNovember 2024 1:04pmBenign essential hypertensionacuteNovember 2024 1:04pmChronic kidney disease, stage 3aacuteNovember 2024 1:04pmGoutacuteNovember 2024 1:04pmHFrEF (heart failure with reduced ejection fraction)acuteNovember 2024 1:04pmHyponatremiaacuteNovember 2024 1:04pm [facility] Work Phone: [phone] NoteUnMemorial Health [facility] 05-04-2025 Note05/07/25 1235 communication received that [facility] no longer accepting referrals sent, [facility] accepting- sent them AVS and they will call Patient to start servicesMer[facility] Health10-17-2025 Note [facility]10-17-2025 NoteUnMemorial Health System [facility]10-17-2025 NoteUnMemorial Health [facility]10-17-2025 Note [facility]10-17-2025 NoteUnMemorial [facility]10-17-2025 NoteUnMemorial Health [facility]10-16-2025 Note [facility]10-16-2025 NoteUnMemorial [facility]10-16-2025 NoteUnMemorial Health System [facility]10-16-2025 Note- Nonischemic cardiomyopathy. - Echo this admission showed EF 20%. - Continue Toprol and Farxiga. - Hold Entresto and spironolactone due to hypotension. - Right cath today.[facility]10-16-2025 Note- Neck side. - Fluid cx was sent. - We will order US neck. - Start doxy empirically.[facility]10-16-2025 Note- Nonobstructive. - Continue aspirin, Plavix, Lipitor.[facility] 05-03-2025 Note- Continue Toprol, Farxiga and spironolactone. - Hold Entresto due to LINDA.[facility]10-16-2025 Note- Due to shock. - Required CRRT in ICU. - Monitor Crea while off dialysis. - Avoid nephrotoxic agents.[facility]10-16-2025 Note- Echo on admission showed early tamponade. Patient was taken to clinical lab specialist for Pericardiocentesis. Right heart cath was not suggestive for tamponade. 300 ml serosanguinous fluid. - Repeated echo showed mild effusion.[facility] 05-03-2025 Note- Albuterol and switched from his Advair to our equivalent. [facility]10-16-2025 Note- Currently paced. - Status post Watchman. - Continue aspirin and Plavix.[facility]10-16-2025 Note - Required Round O Stacy and dobutamine in ICU. - Improving.[facility]10-16-2025 Note- Required Round O Stacy and dobutamine in ICU. - Improving.[facility]10-16-2025 NoteUnMemorial [facility]10-16-2025 NoteUnMem[facility] 05-03-2025 NoteUnMemorial [facility]10-16-2025 NoteUnMemorial [facility]10-15-2025 NoteUnMem[facility] 05-02-2025 NoteUnMemorial [facility]10-15-2025 NoteUnMem[facility]10-15-2025 NoteUnMem[facility] 05-02-2025 NoteUnMemorial Health System [facility]by General [facility] 05-01-2025 [facility]-14-2025 [facility]-14-2025 [facility] 05-01-2025 [facility]-14-2025 [facility]10-13-2025 [facility] 04-30-2025 [facility]-13-2025 [facility]10-13-20[facility] 04-29-2025 [facility]-12[facility] 04-29-2025 [facility]10-11-20[facility]10-11-2025 [facility] 04-28-2025 [facility]10-11-2025 [facility]10-10-2025 [facility] 04-27-2025 [facility]-10-2025 [facility]-10-2025 [facility] 04-26-2025 [facility]-09-2025 [facility]-09-2025 [facility] 04-26-2025 [facility]10-08-2025 [facility]10-08-2025 [facility] 04-25-2025 [facility]10-07-2025 Note- Nonischemic cardiomyopathy. - Echo this admission showed EF 20%. - Continue Toprol and Farxiga. - Hold Entresto and spironolactone due to hypotension. - Right cath today.[facility]10-07-2025 Note- Nonobstructive. - Continue aspirin, Plavix, Lipitor.[facility] 04-24-2025 Note- Continue Toprol. - Hold Entresto and spironolactone due to hypotension.[facility]10-07-2025 Note- Albuterol and switched from his Advair to our equivalent.[facility]10-07-2025 Note- CTA chest showed no PE. - Right cath today.[facility]10-07-2025 Note- Currently paced. - Status post Watchman. - Continue aspirin and Plavix.[facility]10-07-2025 Note - Echo showed early tamponade. Patient was taken to clinical lab specialist for Pericardiocentesis. Right heart cath was not suggestive for tamponade. 300 ml serosanguinous fluid. - Monitor BP. - Continue colchicine per Cardiology. - Repeated echo showed mild effusion.[facility] 04-24-2025 [facility]Un[facility]10-07-2025 [facility]10-07-2025 [facility] 04-23-2025 Note- Nonischemic cardiomyopathy. - Echo this admission showed EF 20%. - Continue Toprol and Farxiga. - Hold Entresto and spironolactone due to hypotension.[facility]10-06-2025 Note- Echo showed early tamponade. Patient was taken to clinical lab specialist for Pericardiocentesis. Right heart cath was not suggestive for tamponade. 300 ml serosanguinous fluid. - Monitor BP. - Continue colchicine per Cardiology. - Repeated echo showed mild effusion.[facility] 04-23-2025 Note- Continue Toprol. - Hold Entresto and spironolactone due to hypotension.[facility]10-06-2025 Note- We will order CTA chest due to tachycardia. - Left and right cath tomorrow.[facility]10-06-2025 Note- Status post Watchman. - Continue aspirin and Plavix.[facility]10-06-2025 Note - Nonobstructive. - Continue aspirin, Plavix, Lipitor.[facility] 04-23-2025 Note- Albuterol and switched from his Advair to our equivalent. [facility]10-06-2025 [facility]Un[facility]10-06-2025 [facility]10-05-2025 Note- Status post Watchman. - Continue aspirin and Plavix.[facility]10-05-2025 Note - Albuterol and switched from his Advair to our equivalent.[facility]10-05-2025 Note- Nonischemic cardiomyopathy - Echo this admission showed EF 60%. - Hold Farxiga, Toprol, Entresto, spironolactone due to hypotension. Might resume tomorrow.[facility]10-05-2025 [facility]Un[facility]10-05-2025 Note- Hold Toprol, Entresto, spironolactone due to hypotension. Might resume tomorrowUnMemorial [facility]10-05-2025 Note- Nonobstructive. - Continue aspirin, Plavix, Lipitor.[facility] 04-22-2025 [facility]Un[facility]10-05-2025 [facility]Un[facility]10-05-2025 [facility] 04-21-2025 Note- Nonischemic cardiomyopathy - Echo this admission showed EF 60%. - Hold Farxiga, Toprol, Entresto, spironolactone due to hypotension.[facility]10-04-2025 [facility] 04-21-2025 [facility]Un[facility]10-04-2025 [facility]Un[facility]10-04-2025 Note- Nonobstructive. - Continue aspirin, Plavix, Lipitor. - Hold Toprol due to hypotension.[facility]10-04-2025 Note- Hold Toprol, Entresto, spironolactone due to hypotension.[facility]10-04-2025 NoteThis report has been cancelled.[facility]10-04-2025 Note- Restarted patients albuterol and switched from his Advair to our equivalent.[facility]10-04-2025 Note- Status post Watchman. - Continue aspirin and Plavix.[facility]10-04-2025 Note [facility]10-03-2025 [facility]Un[facility]10-03-2025 Note- Follow up urine Na and osmol. - Improving.[facility]10-03-2025 Note- Hold Toprol, Entresto, spironolactone due to hypotension.[facility] 04-20-2025 Note- Restarted patients albuterol and switched from his Advair to our equivalent.[facility]10-03-2025 Note- Status post Watchman. - Continue aspirin and Plavix.[facility]10-03-2025 Note - Nonischemic cardiomyopathy with recovery. - Echo this admission showed EF 60%. - Hold Farxiga, Toprol, Entresto, spironolactone due to hypotension.[facility]10-03-2025 Note- Nonobstructive. - Continue aspirin, Plavix, Lipitor. - Hold Toprol due to hypotension.[facility]10-03-2025 [facility]Un[facility]10-03-2025 [facility]Un[facility]10-03-2025 NoteUn[facility]10-03-2025 Note [facility]10-02-2025 [facility]Un[facility]10-02-2025 [facility]Un[facility]10-02-2025 Note [facility]10-02-2025 NoteSatisfactory for evaluation. Examination of the ThinPrep slide and cell block reveals rare benign mesothelial cells and abundant acute inflammation.[facility] Comment on above:Performed By: #### LAB13 ####[facility] ([facility])[address] [place], [place] [id number] NoteThis report has been cancelled. [facility]10-02-2025 NoteSodium 126 Will continue to monitor Urine sodium and serum osmolality orderedUnMemorial [facility] 04-19-2025 NoteContinue aspirin plavix and lipitor EKG is mostly unchanged from previous Troponins at outside hospital were downtrending from 11.5 to 10.5Un[facility]10-02-2025 NotePatient states he has been hypotensive for two weeks Holding antihypertensives for now Will continue to monitor patients blood pressureUnMemorial Health System [facility]10-02-2025 NoteRestarted patients albuterol and switched from his Advair to our equivalentUnMemorial Health System [facility]10-02-2025 Noteatrial fibrillation status post Watchman - Will continue aspirin and plavix Will continue to monitorUnMemorial Health System [facility]10-02-2025 Note [facility]10-02-2025 NoteUn[facility]10-02-2025 NoteUn[facility]09-16-2025 Note [facility]08-11-2025 NoteUn[facility]07-23-2025 [id number]-zdu post Watchman CTA orderUnMemorial Health [facility]07-21-2025 History of Present illness Narrative* Mariah [...] fraction) (HCC) 07/06/2022 Coronary artery disease involving [place] coronary artery of [place] heart without angina pectoris 07/06/2022 Depressive disorder [...] prescribed. Continue current regimen documented [facility] HospitalArxapuqtys26-03-2094 History of Present illness Narrative* Rudy King [...] device to stop anticoagulation. documented in this encounterEastern [facility] HospitalIkpjunkgfj03-20-1522 NoteUnMem[facility]12-16-2024 NoteUn[facility]01-31-2023 Note PROCEDURE: XR FOOT LT MIN [...] Electronically authenticated by: BRIAN BRADSHAW Date: 2022-08-18 15:43[facility]01-17-2023 NotePROCEDURE: XR FOOT LT MIN 3 VIEWS COMPARISON: None. HISTORY: Pain in left foot FINDINGS: BONES:No acute fracture or dislocation. Mild enthesopathic spurring of the calcaneus at the Achilles and plantar insertions. Mild degenerative changes of the midfoot SOFT TISSUES:Negative. No visible soft tissue swelling. EFFUSION:None visible. OTHER: Negative. IMPRESSION: No acute abnormality Electronically authenticated by: ASIF ALVARO Date: 2022-08-04 08:48[facility] [id number] NoteOPERATIVE NOTE OPERATION DATE: 01/28/2022 PREOPERATIVE DIAGNOSIS: [...] in 10 years. CC: Rudy King M.D. [facility] Signed and Approved by: DR RAVI DOMINGUEZ . 01/30/2022 12:35:00[facility] [id number] NoteChief Complaint consultation for screening colonoscopy HPI Staff [...] lung: Brother. Primary malignant neoplasm of prostate: Brother.[facility] Comment on above:Result Comment: Electronically Signed By: ANGELICA KLEIN, Ravi Chambers\Date and Time Signed: 01/07/22 16:19 EDTEvaluation note* [...] (CMS/HCC) Atrial fibrillation documented in this encounter [facility] HealthcareEvaluation note* Diagnosis Benign essential hypertension- Primary [...] Unspecified nasal polyp documented in this encounter [facility] HealthcareEvaluation note* Diagnosis Onset Date Resolution Status Admit Date Benign essential hypertension acuteOctober 2024 9:26amChronic HFrEF (heart failure with reduced ejection fraction)acuteOctober 2024 9:26amCoronary artery disease involving [place] coronary artery of [place] heart wiacuteOctober 2024 9:26amNonischemic cardiomyopathyacuteOctober 2024 9:26amPAF (paroxysmal atrial fibrillation) acuteOctober 2024 9:26amPericardial effusionacuteOctober 2024 9:26am [facility] Work Phone: Reason for referral (narrative)No reason for referral information availableUniversity Hospitals [facility] Work Phone: Summary Purpose Family History No Family History Records FoundNo Family History Records FoundNo Family History Records FoundNo Family History Records FoundNo Family History Records Found Advance Directives No Advanced Directives Records Found Advance Directive Response Recorded Date/ Time Advance Directives No December 08 2:35pm Advance Directive Response Recorded Date/ Time Advance Directives No December 08 1:35pm Chief Complaint and Reason for Visit Chief Complaint Admit Date Hospital Followup May 16, 2025 9 :26am Reason for Visit Admit Date Benign essential hypertension May 162024 9:26am Chronic HFrEF (heart failure with reduced ejection fraction) May 16, 2025 9:26am Coronary artery disease invo lving [place] coronary artery of [place] heart [place] May 16, 2025 9:26am Nonischemic cardiomyopathy May 16, 2025 9:26am PAF (paroxysmal atrial fibrillation) Oct jean claude 2024 9:26am Pericardial effusion May 16, 2025 9:26am Chief Complaint Admit Date Hospital Followup May 16, 2025 9 :26am hypnatremia ref by Boris ledesma 2024 1:04pm Reason for Visit Admit Date Benign essential hypertension May 162024 9:26am Chronic HFrEF (heart failure with reduced ejection fraction) May 16, 2025 9:26am Coronary artery disease invo lving [place] coronary artery of [place] heart [place] May 16, 2025 9:26am Nonischemic [...] 1:04pm Hyponatremia May 23, 2025 1 :04pm Additional Source Comments (unrecognized sect ion and content) No Status Records FoundNo Status Records FoundNo Status Records FoundNo Status Records FoundNo Status Records Found INFORMATION SOURCE (unrecogn ized section and content) DATE CREATED AUTHOR 02/04/2022 [facility] DATE CREATED AUTHOR AUTHOR'S ORGANIZ ATION 11/27/2022 [facility] DATE CREATED AUTHOR AUTHOR'S ORGANIZ ATION 12/25/2022 [facility] DATE CREATED AUTHOR AUTHOR'S ORGANIZ ATION 02/06/2025 [facility] DATE CREATED AUTHOR AUTHOR'S ORGANIZ ATION 05/28/2025 [facility] Teams (unrecognized sec tion and content) Team MemberRelationshipSpecialtyStart DateEnd Date Rudy King MD [address] [place] [id number] PCP - [facility]01/17/24Team MemberRelationshipSpecialtyStart DateEnd Date Rudy King MD [address] [place] [address] [facility] - [facility]01/17/24Team MemberRelationshipSpecialtyStart DateEnd Date Rudy King MD [address] [place] [address] [facility] - [facility]01/17/24Team MemberRelationshipSpecialtyStart DateEnd Date Rudy King MD [address] [place] [address] [facility] - [facility]01/17/24Team MemberRelationshipSpecialtyStart DateEnd Date Rudy King MD [address] [place] [phone] PCP - [facility]01/17/24 Team Status: Active Member Role/Relationship Status Dates Rudy King MD Primary Care Provider Active Team Status: Active Member Role/Relationship Status Dates Froy Avila MD Attending Provider Active St art: April 18, 2025 Team Status: Active Member Role/Relationship Status Dates Froy Avila MD Attending Provider Active St art: April 19, 2025 Team Status: Active Member Role/Relationship Status Dates Outside Provider Attending Provider Active Start : May 07, 2025 Team Status: Active Member Role/Relationship Status Dates Rudy King MD Primary Care Provider Active S tart: May 14, 2025 Elliott Nettles , SENIOR INSIGHT MANAGER-CAttending ProviderActiveStart: May 14, 2025 Team Status: Inactive Member Role/Relationship Status Dates Rudy King MD Primary Care Provider Active S tart: May 16, 2025 End: May 16, 2025MarLyndsay Nazario ProviderActiveStart: May 16, 2025 End: May 16, 2025Team MemberRelationshipSpecialtyStart DateEnd Date Rudy King MD PCP - [facility] Rudy King MD PCP - [facility]01/17/24 Team Status: Inactive Member Role/Relationship Status Dates Rudy King MD Primary Care Provider Active S tart: May 23, 2025 End: May 23Lyndsay Sadler ProviderActiveStart: May 23, 2025 End: May 23, 2025 Reason for Visit (unrecogniz ed section and content) ReasonCommentsFollow-upDiscuss watchman deviceReasonCommentsSinusitis1 year sinus check Goals (unrecognized section and content) Goals may be documented in a n alternate sectionGoals may be documented in an alternate section FOR RECORDS PERTAINING TO PATIENTS WHO ARE [...] BE BASED ON THE PRIMARY CLINICAL RECORDS. [email or web address] [facility]. provides no warranty or guarantee of the accuracy or completeness of information in this document.
[2025-05-31 14:49] LABS: Alanine Aminotransferase 199 U/L (16-63); Albumin Globulin Ratio 0.5; Albumin Level 2.7 g/dL (3.4-5.0); Alkaline Phosphatase 116 U/L (46-116); Anion Gap 15.5; Aspartate Amino Transferase 100 U/L (15-37); Blood Urea Nitrogen 38.0 mg/dL (7.0-18.0); Calcium 9.2 mg/dL (8.5-10.1); Carbon Dioxide 21.8 mmol/L (21.0-32.0); Chloride 97 mmol/L (98-107); Estimated GFR (African America 45 (>=60 mL/min/1.73m^2); Estimated GFR (Non-African Ame 37 (>=60 mL/min/1.73m^2); Globulin 5.5 g/dL; Glucose 106 mg/dL (74-106); Potassium 4.3 mmol/L (3.5-5.1); Sodium 130 mmol/L (136-145); Total Protein 8.2 g/dL (6.4-8.2)
[2025-05-31 14:57] LABS: Lipase 63.0 U/L (16.0-77.0)
[2025-05-31 16:49] LABS: Glucose Urine UA >=1000 mg/dL (NEGATIVE)
--- NOTE | 2025-05-31 17:43 | PM.EN ---
Event Note Event Note: Mr Doherty was admitted to the hospital after hours, signout was obtaned directly from the ER PA, his VSS, his basic admission orders placed and home medications continued, full H&P will follow tomorrow after I am able to evaluate him. Please call with any issues or concerns when he arrives to the floor
[2025-05-31] MEDS: ATORVASTATIN CALCIUM 40 MG TABLET PO (21:28)
[2025-05-31] MEDS: ENOXAPARIN SODIUM 40 MG/0.4 ML SYRINGE SUBQ (21:28)
[2025-06-01] VITALS (23 sets, daily range): BP systolic 90–120; BP diastolic 57–79; PULSE 19–125; TEMP 36.6–38; O2SAT 91–95; BMI 24.3
[2025-06-01] MEDS: ACETAMINOPHEN 325 MG TABLET 650 MG PO (04:59)
--- NOTE | 2025-06-01 05:23 | US_ITS ---
[address] [address] Patient Name: KRISTY VAZQUEZ MRN: [id number] date: 1955 Sex: M Assigned Patient Location: MS Current Patient Location: Accession/Order Number: [id number] Exam Date: 06/01/2025 07:35 Report Date: 06/01/2025 08:47 At the request of: MARLYN GALLEGOS MD Procedure: US renal BI BILATERAL RENAL AND BLADDER ULTRASOUND CLINICAL HISTORY: LINDA COMPARISON: MRI 03/26/2020 Estimation of renal size is approximately 10.8 cm on the right and 12.0 cm on the left. No shadowing calculi or hydronephrosis are identified. Bilateral renal cysts are present. The largest is on the right measuring 3.3 cm in size. There is no perinephric fluid. The urinary bladder is partially distended with a volume of 114 mL. No contour or intraluminal abnormalities are seen. US/US renal BI IMPRESSION: BILATERAL RENAL CYSTS. NO OBSTRUCTIVE UROPATHY. Impression dictated by: Liza Mckeon M.D. 06/01/2025 8:47 AM Dictation Location: [place] [address] Electronically authenticated by: [id number] Y Date: 06/01/2025 08:47
[2025-06-01 05:33] LABS: Hematocrit 34.4 % (42.0-54.0); Hemoglobin 11.5 g/dL (14.0-18.0); Immature Granulocytes Abs Auto 0.21 10^3/uL (0.00-0.03); Immature Granulocytes Pct Auto 1.0 % (0.0-0.5); Lymphocytes Absolute Auto 1.1 10^3/uL (1.2-3.8); Mean Corpuscular HGB Conc 33.4 g/dL (29.9-35.2); Mean Corpuscular Hemoglobin 29.6 pg (25.9-34.0); Mean Corpuscular Volume 88.7 fL (80.0-94.0); Platelet Count 232 10^3/uL (150-450); Red Blood Count 3.88 10^6/uL (4.70-6.10); White Blood Count 20.2 10^3/uL (4.0-11.0)
[2025-06-01 05:43] LABS: Anion Gap 16.3; Blood Urea Nitrogen 42.0 mg/dL (7.0-18.0); Calcium 9.3 mg/dL (8.5-10.1); Carbon Dioxide 21.5 mmol/L (21.0-32.0); Chloride 98 mmol/L (98-107); Estimated GFR (African America 39 (>=60 mL/min/1.73m^2); Estimated GFR (Non-African Ame 32 (>=60 mL/min/1.73m^2); Glucose 104 mg/dL (74-106); Magnesium 1.7 mg/dL (1.8-2.4); Potassium 4.8 mmol/L (3.5-5.1); Sodium 131 mmol/L (136-145)
[2025-06-01] MEDS: 0.9 % SODIUM CHLORIDE 500 ML IV (05:45)
[2025-06-01] MEDS: 0.9 % SODIUM CHLORIDE 1,000 ML 250 ML IV (06:52)
[2025-06-01] MEDS: ASPIRIN 81 MG TABLET.DR PO (08:14)
[2025-06-01] MEDS: COLCHICINE 0.6 MG TABLET PO (08:14)
[2025-06-01] MEDS: CLOPIDOGREL BISULFATE 75 MG TABLET PO (08:14)
[2025-06-01] MEDS: METOPROLOL SUCCINATE 25 MG TAB.ER.24H 12.5 MG PO (08:14)
--- NOTE | 2025-06-01 09:10 | CM.NOTE ---
Rounds made with Dr. Syed, discussed with pt and reason for admission and plan of care. PT will evaluate pt today for discharge planning. Pt will also have cardiac echo today.
--- NOTE | 2025-06-01 10:16 | SWNOTE1 ---
SW spoke to case management and pt's has voiced she would like pt to go to [facility]. has voiced she has already called over there. SW to send referral.
--- NOTE | 2025-06-01 10:30 | CM.NOTE ---
CM discussed discharge planning with . PT at this time recommends skilled therapy at discharge, in agreement. Wishes are for [facility] for skilled therapy. SW updated for referral to be sent.
--- NOTE | 2025-06-01 10:30 | CA_ITS ---
Patient Name: KRISTY VAZQUEZ MR#: [id number] : 1955 Exam Date: 06/01/2025 Ordering Doctor: ANG HOUGH ECHOCARDIOGRAM REPORT PROCEDURE: CA ECHO LIMITED INDICATIONS: Hx of pericardial effusion, CHF, pace/defib, Watchman COMPARISON: None. DESCRIPTION: Limited ECHOCARDIOGRAM Real-time transthoracic echocardiography with 2D and M-mode performed. QUALITY: Technical quality was good. Limited echocardiogram per physician order. LEFT VENTRICLE: Mild dilatation. Normal left ventricular wall thickness. Severely reduced left ventricular systolic function globally, ejection fraction estimated to be approximately 30% LV EF: DIASTOLIC: Unable to evaluate ATRIAL SEPTUM: Visually appears intact LEFT ATRIUM: Normal chamber size. RIGHT ATRIUM: Normal chamber size. RIGHT VENTRICLE: Normal chamber size. Systolic function appears normal. Pacer wire present in the right atrium and the right ventricle. TRICUSPID VALVE: Normal mobility and thickness. MITRAL VALVE: Normal mobility and thickness. AORTIC VALVE: Normal trileaflet appearance. No visible sclerosis. Normal leaflet mobility. AORTIC ROOT: Normal diameter and appearance. PULMONIC VALVE: Not well visualized. PERICARDIUM: No evidence of pericardial effusion. IVC: Normal size, Collapes with inspirations. PLEURA: CONCLUSION: Mildly dilated left ventricle Severely reduced left ventricle systolic function in global fashion, ejection fraction estimated to be 30% Normal right ventricle size and systolic function Pacemaker wire in the right cardiac chambers No pericardial effusion Normal IVC size with normal respiratory collapse Adult Echocardiography Procedure Report Left Ventricle LVEDD (3.7 - 5.6 cm): 5.87 cm LVESD (2.2 - 4.0 cm): 5.08 cm LVIVS thickness (0.6 - 1.2 cm): 0.76 cm LVPW thickness (0.5 - 1.0 cm): 0.80 cm LVOT Diameter 2.37 cm Left Ventricular Ejection Fraction: 37.49 % Left Atrium Left Atrium Systolic Dimension: 2.96 cm Mitral Valve Right Ventricle Aorta AO Root Diam: 3.45 cm Aortic Valve Tricuspid Valve Pulmonic Valve Right Atrium Right Atrium Systolic Pressure: 40.34 ml, 40.34 ml Dictated by: Annette Denney MD on 06/03/2025 at 15:53 Approved by: Annette Denney MD on 06/03/2025 at 16:00
--- NOTE | 2025-06-01 10:56 | SWNOTE1 ---
[facility] is able to accept and will start precert once the PT note and H&P are received.
--- NOTE | 2025-06-01 10:58 | PM.IMHP1 ---
Internal Medicine - H&P: HPI History of Present Illness Chief complaint: Generalized weakness. Hx of CHF Narrative: Mr Doherty is a 69-year-old male with a past medical history notable for A-fib status post Watchman, and a recent diagnosis of pericardial effusion and systolic heart failure. He presented to our hospital yesterday afternoon with his , chief complaint at the time was weakness. He had been discharged from [facility] after what sounded like a 17 or 18-day hospitalization with 16 of those days being in the ICU, he was discharged home. He has been home for approximately 3 weeks, it sounds as though he was doing okay with his assisting him at home and home health therapy however has had a steady decline with a more rapid decline this past week. He denies any pain, there has been no falls at home. He has had decreased oral intake the last 5 or 6 days, he does drink a little bit of water throughout the day but his last actual meal sounds like it was on Wednesday. This morning his voice is very soft, when asked why he is in the hospital he says my brought me, he declines any issues with pain but does endorse not eating or drinking much lately. The history obtained from the about [facility] and hospitalization was confirmed. He had an AICD placed and also appears to have undergone a pericardiocentesis. The declined any knowledge of a left heart cath, he did not have any stents placed. He did have what appears to be 3 days of CRRT while he was in the ICU. He was discharged with GDMT metoprolol, spironolactone, and Farxiga, he was also given Bumex but only to take on an as-needed basis for swelling, said he has not had a single dose of the Bumex since being discharged home. He has lost a significant amount of weight, According to our records he was 84 kg on April 18 and 73 kg this morning, unclear how much of that was fluid lost at [facility] from CHF admission or true weight loss from decreased oral intake since discharge. He was admitted to the hospital yesterday evening, I did receive a phone call from the ER physician around 1700 and basic admission orders were placed. His blood pressure was stable, his labs were stable with slight increase in creatinine from his prior numbers here though given history of CHF with pericardial effusion I did not want to start IV fluids without physically evaluating the patient. This morning the night RN notified the on-call physician that he has not had any urine output since arriving to the floor and his creatinine continued to climb from his admitting 1 yesterday. 2 L of IV fluid were started and his Farxiga and spironolactone were placed on hold. Review of Systems ROS Status of ROS 10 or more systems reviewed and unremarkable except as noted in history and below [facility] Medical History (Updated 06/01/25 @ 11:08 by ANG HOUGH DO) Weakness ?R53.1 - Weakness (ICD-10) Afib ?I48.91 - Unspecified atrial fibrillation (ICD-10) Presence of Watchman left atrial appendage closure device ?Z95.818 - Presence of other cardiac implants and grafts (ICD-10) Cardiac defibrillator in place ?Z95.810 - Presence of automatic (implantable) cardiac defibrillator (ICD-10) Pacemaker ?Z95.0 - Presence of cardiac pacemaker (ICD-10) Social History Highest level of school completed/degree received: high school graduate Meds Home Medications and Allergies Home Medications ?Medication ?Instructions ?Recorded ?Confirmed ?Type albuterol sulfate 90 mcg/actuation 2 inh inhalation Q4H PRN shortness 01/01/23 05/31/25 History aerosol inhaler of breath or wheezing aspirin 81 mg tablet,delayed 81 mg PO DAILY 01/01/23 05/31/25 History release (Adult Aspirin Regimen) atorvastatin 40 mg tablet 40 mg PO QPM 01/01/23 05/31/25 History dapagliflozin propanediol 10 mg 10 mg PO DAILY 01/01/23 05/31/25 History tablet (Farxiga) fluticasone 500 mcg-salmeterol 50 1 inh inhalation Q12H 01/01/23 05/31/25 History mcg/dose blistr powdr for inhalation spironolactone 25 mg tablet 25 mg PO DAILY 01/01/23 05/31/25 History allopurinol 300 mg tablet 300 mg PO DAILY 05/31/25 05/31/25 History clopidogrel 75 mg tablet 75 mg PO DAILY 05/31/25 05/31/25 History colchicine 0.6 mg tablet 0.6 mg PO DAILY 05/31/25 05/31/25 History dupilumab 300 mg/2 mL subcutaneous 300 mg subcut Q7D 05/31/25 05/31/25 History syringe (Dupixent) furosemide 20 mg tablet 40 mg PO DAILY PRN edema 05/31/25 05/31/25 History metoprolol succinate 25 mg 12.5 mg PO DAILY 05/31/25 05/31/25 History tablet,extended release 24 hr Allergies Allergy/AdvReac Type Severity Reaction Status Date / Time No Known Drug Allergies Allergy Verified 05/31/25 13:53 Exam Narrative Exam Narrative: General: He was sleeping comfortably at time of walking in the room, he does wake up while I am discussing his case with the . He appears frail overall and dehydrated. Has a very soft/weak voice. Decreased muscle mass throughout. HEENT: head atraumatic, his mucous membranes are dry, tongue is slightly cobblestoned, his saliva in his mouth is very thick and sticking to his tongue and mucous membranes of his mouth. Temporal wasting. Neck: supple no masses, no lymphadenopathy CVS: Very distant heart sounds on auscultation, did not appear to be any murmurs though I cannot be certain. Respiratory: Shallow respirations Chest: Well-healed surgical scar on the anterior left chest wall from his AICD placement GI: soft, nondistended, nontender, hypoactive bowel sounds Extremity: moves all extremities, no restrictions of movements, no calf tenderness, no edema Neuro: AOx3, CN II-VII intact. Moves all extremities in all planes of motion. Skin: dry, intact no rashes or lesions Constitutional Vital Signs, click to edit/add: Last Vital Signs Temp 98 F 06/01/25 07:37 Pulse 109 H 06/01/25 09:46 Resp 20 06/01/25 07:37 BP 103/63 06/01/25 07:37 Pulse Ox 95 06/01/25 07:37 O2 Del Method Room Air 06/01/25 07:37 Internal Medicine - H&P: Reslt Labs Labs: Short CBC 05/31/25 06/01/25 Range/Units 14:10 05:06 WBC 14.9 H 20.2 H (4.0-11.0) 10^3/uL Hgb 11.5 L 11.5 L (14.0-18.0) g/dL Hct 33.9 L 34.4 L (42.0-54.0) % Plt Count 206 232 (150-450) 10^3/uL BMP 05/31/25 06/01/25 14:10 05:06 Sodium 130 L 131 L Potassium 4.3 4.8 Chloride 97 L 98 Carbon Dioxide 21.8 21.5 BUN 38.0 H 42.0 H Creatinine 1.81 H 2.08 H Glucose 106 104 Calcium 9.2 9.3 Liver Function 05/31/25 Range/Units 14:10 Total Bilirubin 0.7 (0.2-1.0) mg/dL AST 100 H (15-37) U/L ALT 199 H (16-63) U/L Alkaline Phosphatase 116 (46-116) U/L Albumin 2.7 L (3.4-5.0) g/dL Urine 05/31/25 Range/Units 16:30 Urine Color Yellow (YELLOW) Urine Clarity Clear (CLEAR) Urine pH 5.5 (5.0-9.0) Ur Specific Moran 1.020 (1.005-1.025) Urine Protein Negative (NEG/TRACE) mg/dL Urine Glucose (UA) >=1000 A (NEGATIVE) mg/dL Assessment and Plan Assessment and Plan (1) LINDA (acute kidney injury): Assessment and Plan: ? Admit to [facility], inpatient status with telemetry, he was formally admitted to the hospital the evening of May 31 ? His baseline creatininePer our records after his [facility] discharge appears to be 1.6. ? He presented with 1.8 last night and trended up to 2.1 this morning ? He received a 2 L fluid bolus this morning as he has had 0 urine output overnight ? Renal ultrasound showed no hydronephrosis ? Bladder scan every 8 hour ? He did require 3 days of CRRT at [facility] during a 17-day hospitalization 1 month ago ? Repeat lab work this afternoon at 5 PM (2) Generalized weakness: Assessment and Plan: ? Likely has a combination of ICU myopathy and general deconditioning secondary to decreased oral intake ? Therapy consulted ? Likely will require SNF upon discharge ? Likely multifactorial, encourage p.o. intake, Ensure shakes, IV fluid resuscitation (3) Poor appetite: Assessment and Plan: See above (4) History of CHF (congestive heart failure): Assessment and Plan: ? It appears as though his ejection fraction was 20% when measured at [facility] roughly 1 months ago, he is status post AICD, continue his metoprolol and I will increase the dose today secondary to continued tachycardia, will have milligrams Toprol daily. ? Continue to hold Farxiga and spironolactone given his worsened kidney function ? Repeat echocardiogram will limited views ordered this morning to assess his ejection fraction and pericardial effusion status. (5) Pericardial effusion: Assessment and Plan: See above (6) Dehydration: Assessment and Plan: See above Plan ? DVT prophylaxis addressed with Lovenox ? Regular diet, encourage oral intake, Ensure shakes ? Full code
--- NOTE | 2025-06-01 11:13 | CM.NOTE ---
CRF completed and signed by NICO Elaine sent referral to Jody. Pt previously had [facility] services when discharge from [facility].
[2025-06-01] MEDS: METOPROLOL TARTRATE 25 MG TABLET PO (12:07)
--- NOTE | 2025-06-01 13:05 | SWNOTE1 ---
NICO faxed PT and H&P to [place] at the [facility] precert.
--- NOTE | 2025-06-01 13:06 | SWNOTE1 ---
Nicci sent email to NICO to confirm precert has been started.
--- NOTE | 2025-06-01 13:55 | SWNOTE1 ---
NICO completed PASRR online in case of discharge to [facility] over the weekend. NICO faxed copy to Nicci at [facility] and copy in chart.
--- NOTE | 2025-06-01 14:23 | SWNOTE1 ---
NICO took packet to the floor in case pt is approved and discharged over the weekend. [facility] will call if approved.
--- NOTE | 2025-06-01 15:01 | SWNOTE1 ---
Important Message from Medicare reviewed and discussed with patient. Pt. verbalized understanding and signed the form. Original given to patient and copy placed in patient?s chart.
--- NOTE | 2025-06-01 15:51 | SWNOTE1 ---
NICO received an email from Nicci at the [facility] and pt is approved to go to [facility]. NICO sent message to Dr. Syed to see if pt can be discharged today, waiting to hear back.
--- NOTE | 2025-06-01 16:09 | SWNOTE1 ---
Dr. Syed did reply to SW and no discharge today as he would like kidney function to improve first. NICO asked Nicci at [facility] how long precert is good through, waiting to hear back.
--- NOTE | 2025-06-01 16:13 | SWNOTE1 ---
Nicci reached out and let NICO know the approval is good through 06/05. NICO took packet to the floor and updated nurse.
--- NOTE | 2025-06-01 16:32 | SWNOTE1 ---
SW called pt's life partner to discuss approval through the . Pt's life partner asked several questions in regards to [facility] and time frame he will be there. She was under the impression he would be there for 100 days and Medicare approved him for 100 days and his secondary will cover 20 more days. She was under the impression he had 120 days at the [facility]. SW explained that he is only approved for a certain number of days to start and then [facility] will continue to send updates. SW explaine he could be there for 10 days or 45 days, it depends on how he does with therapy and his insurance. NICO explained this to her several times and she did voice appreciation and did voice understanding. She did express she feels he will be her until at least Wednesday. SW let her know that if he does go to [facility] over the weekend, the SW is [place] and she will have lots of support over there with planning after skilled.
--- NOTE | 2025-06-01 16:57 | NUTR.NU ---
Pt states he hasn?t been able to eat much d/t illness. He dislikes Ensure and ?won?t touch it; it?s nasty.? Provided handout for poor appetite, ?Ways to Increase Nutrient Intakes.? Encouraged pt to eat/drink what he is able to tolerate. Dietary will honor food preferences and requests as available. Will continue to follow PRN.
[2025-06-01 17:03] LABS: Hematocrit 28.7 % (42.0-54.0); Hemoglobin 9.7 g/dL (14.0-18.0); Mean Corpuscular HGB Conc 33.8 g/dL (29.9-35.2); Mean Corpuscular Hemoglobin 30.3 pg (25.9-34.0); Mean Corpuscular Volume 89.7 fL (80.0-94.0); Platelet Count 186 10^3/uL (150-450); Red Blood Count 3.20 10^6/uL (4.70-6.10); White Blood Count 16.6 10^3/uL (4.0-11.0)
[2025-06-01 17:17] LABS: Anion Gap 16.4; Blood Urea Nitrogen 40.0 mg/dL (7.0-18.0); Calcium 8.4 mg/dL (8.5-10.1); Carbon Dioxide 20.7 mmol/L (21.0-32.0); Chloride 101 mmol/L (98-107); Estimated GFR (African America 40 (>=60 mL/min/1.73m^2); Estimated GFR (Non-African Ame 33 (>=60 mL/min/1.73m^2); Glucose 120 mg/dL (74-106); Magnesium 1.7 mg/dL (1.8-2.4); Potassium 4.1 mmol/L (3.5-5.1); Sodium 134 mmol/L (136-145)
[2025-06-01 17:43] LABS: Basophils Abs Manual 0.00 10^3/uL (0.00-0.10); Basophils Percent Manual 0.0 % (0.2-2.0); Eosinophils Absolute Manual 0.00 10^3/uL (0.00-0.70); Eosinophils Percent Manual 0.0 % (0.9-7.0); Segmented Neut Absolute Manual 13.61 10^3/uL (1.4-6.5); Segmented Neutrophils % Manual 82.0 (43.0-75.0)
[2025-06-01 17:44] LABS: Lymphocytes Absolute Manual 1.82 10^3/uL (1.20-3.80); Lymphocytes Percent Manual 11.0 % (20.5-60.0); Monocytes Absolute Manual 1.16 10^3/uL (0.30-0.80); Monocytes Percent Manual 7.0 % (1.7-12.0)
[2025-06-01] MEDS: ALBUTEROL SULFATE 2.5 MG/3 ML VIAL NEB IH (19:33)
[2025-06-01] MEDS: MAGNESIUM SULFATE IN WATER 2 GM/50 ML PREMIX IV (20:47)
[2025-06-01] MEDS: 0.9 % SODIUM CHLORIDE 250 ML 10 ML IV (20:47)
[2025-06-01] MEDS: ATORVASTATIN CALCIUM 40 MG TABLET PO (21:12)
[2025-06-01] MEDS: ENOXAPARIN SODIUM 40 MG/0.4 ML SYRINGE SUBQ (21:12)
[2025-06-02] VITALS (21 sets, daily range): BP systolic 94–125; BP diastolic 59–75; PULSE 83–112; TEMP 36.6–37.8; O2SAT 92–95
[2025-06-02] MEDS: ACETAMINOPHEN 325 MG TABLET 650 MG PO (03:50)
[2025-06-02 05:02] LABS: A. calcoaceticus-baumannii Cpx NOT DETECTED (NOT DETECTE); Bacteroides fragilis NOT DETECTED (NOT DETECTE); Candida auris NOT DETECTED (NOT DETECTE); Candida glabrata NOT DETECTED (NOT DETECTE); Enterobacterales NOT DETECTED (NOT DETECTE); Enterococcus faecalis NOT DETECTED (NOT DETECTE); Enterococcus faecium NOT DETECTED (NOT DETECTE); Klebsiella aerogenes NOT DETECTED (NOT DETECTE); Klebsiella pneumoniae group NOT DETECTED (NOT DETECTE); Proteus spp. NOT DETECTED (NOT DETECTE); Salmonella spp. NOT DETECTED (NOT DETECTE); Serratia marcescens NOT DETECTED (NOT DETECTE); Source BLOOD; Staphylococcus epidermidis NOT DETECTED (NOT DETECTE); Stenotrophomonas maltophilia NOT DETECTED (NOT DETECTE); Streptococcus pyogenes NOT DETECTED (NOT DETECTE); Streptococcus spp. NOT DETECTED (NOT DETECTE)
[2025-06-02 06:26] LABS: Hematocrit 27.4 % (42.0-54.0); Hemoglobin 9.2 g/dL (14.0-18.0); Mean Corpuscular HGB Conc 33.6 g/dL (29.9-35.2); Mean Corpuscular Hemoglobin 29.7 pg (25.9-34.0); Mean Corpuscular Volume 88.4 fL (80.0-94.0); Platelet Count 198 10^3/uL (150-450); Red Blood Count 3.10 10^6/uL (4.70-6.10); White Blood Count 15.6 10^3/uL (4.0-11.0)
[2025-06-02 06:29] LABS: mecA/C NOT DETECTED (NOT DETECTE)
[2025-06-02 06:33] LABS: Anion Gap 15.0; Blood Urea Nitrogen 42.0 mg/dL (7.0-18.0); Calcium 8.7 mg/dL (8.5-10.1); Carbon Dioxide 20.2 mmol/L (21.0-32.0); Chloride 102 mmol/L (98-107); Estimated GFR (African America 43 (>=60 mL/min/1.73m^2); Estimated GFR (Non-African Ame 35 (>=60 mL/min/1.73m^2); Glucose 106 mg/dL (74-106); Magnesium 2.2 mg/dL (1.8-2.4); Potassium 4.2 mmol/L (3.5-5.1); Sodium 133 mmol/L (136-145)
[2025-06-02 06:34] LABS: Staphylococcus spp. DETECTED (NOT DETECTE)
[2025-06-02 06:35] LABS: Staphylococcus lugdunensis DETECTED (NOT DETECTE)
[2025-06-02] MEDS: COLCHICINE 0.6 MG TABLET PO (08:06)
[2025-06-02] MEDS: ASPIRIN 81 MG TABLET.DR PO (08:06)
[2025-06-02] MEDS: CLOPIDOGREL BISULFATE 75 MG TABLET PO (08:06)
--- NOTE | 2025-06-02 08:19 | PT.DAILY ---
Physical Therapy Daily Note PT Daily Note/Assess Start: 06/01/25 10:32 Freq: Status: Active Protocol: Document 06/02/25 08:09 [id number] (Rec: 06/02/25 08:19 [id number]) Physical Therapy Daily Note/Assessment Time In/Time Out Time In 07:57 Time Out 08:07 Pain In Pain Level 0 Pain Out Pain Level 0 Subjective Subjective Patient received in bed. Patient agreeable to participate with PT. States he will be going to the [facility] at some point, just not sure when. Alarms disengaged. Therapeutic Activity Time Therapeutic Activity 10 Minutes (minutes) Therapeutic Activity 1 Units Therapeutic Activity Treatment Bed Mobility Ability Standby Assistance,Contact Guard Assist Chair Transfer Contact Guard Assist Ability Therapeutic Activity Bed mobility: supine to R rolling to sit w/ use of R Comments hand rail is SBA to CGA +1. Patient is able to sit upright w/o UE support and no C/O dizziness. Transfer: sit to stand to 2WW is CGA +1 w/ VC's for safe hand placement. Patient ambulated ~3 ft. to chair at bedside w/ 2WW w/ CGA +1. Stand to sit transfers is CGA +1 to bedside chair. Patient reports no fatigue. STS transfer to 2WW is CGA +1. Ambulated ~40 ft. with 2WW w/ CGA +1 with equal step length and height. No LOB w/ L turn. Patient seated in chair at bedside, CBWR. Chair alarm engaged. Care of patient picked up by SAL Harris. Total Physical Therapy Time Total Therapy 10 Minutes Total Physical 1 Therapy Units Summary Daily Note Summary Patient demonstrates improved bed mobility and gait with less assistance required. Patient would benefit from SNF placement to address functional deficits of distance walking and ability to stand to perform ADL's to allow return to PLOF,.
[2025-06-02] MEDS: VANCOMYCIN HCL 1,250 MG in 0.9 % SODIUM CHLORIDE 250 ML 166.667 MG IV (08:52)
[2025-06-02] MEDS: METOPROLOL SUCCINATE 25 MG TAB.ER.24H PO (10:51)
--- NOTE | 2025-06-02 11:06 | P.IMPN_ITS ---
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 Acute kidney injury, due to the above. Hypotension, due to the above. Acute metabolic encephalopathy, due to all 3 of the problems above. Chronic systolic congestive heart failure, with left-ventricular ejection fraction worsening 1.5 months ago down to 20% in the setting of pericardial effusion which needed pericardiocentesis. Chronic renal failure, needing 3 days of chronic renal replacement therapy/continuous hemodialysis, at the [facility]. History of atrial fibrillation, with watchman's device in place, so he does not require full anticoagulation. History of pacemaker/AICD implantation 3 years ago. 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 Plan: Since there is no methicillin resistance we will move antibiotics to IV Ancef, dose adjusted by pharmacy, for his renal clearance. His GDMT has been dropped back a great deal due to hypotension. Currently today he got 25 mg of Toprol. Will consider increasing his Toprol if his blood pressure rises enough to allow this. Continue telemetry monitoring. Given the frequent PVCs will check a magnesium level. Continue to work with physical therapy and work on getting him stronger. If his creatinine improves and for CT scans with IV iodinated contrast, I would consider CT scan of the chest, abdomen, and pelvis to evaluate for occult areas of infection. Probiotic to help reduce antibiotic associated diarrhea. His is bringing in boost protein shakes from home. Continuing home medications: Atorvastatin 40 mg po QHS. Plavix 75 mg po daily. Aspirin 81 mg po daiily. Colchicine 0.6 mg daily. Some of his medications from home remain on hold: Some of these may be able to be reintroduced if his creatinine improved significantly and his blood pressure rises enough to tolerate more medication. Spironolactone 25 mg p.o. daily. Lasix 40 mg daily as needed edema. I suspect the patient never had edema. Farxiga 10 mg p.o. daily. Certainly will hold the Dupixent for the foreseeable future. Allopurinol 300 mg p.o. daily. DVT prophylaxis with Lovenox 40 mg subcutaneously daily. Extensive discussion had with the at the bedside, the in private in the hallway, and by speaker phone with the daughter who lives in [place]. Internal Medicine - PN: Subj Subjective Interval history: History is reviewed, as I have taken over for my partner, Dr. Jean Pierre Syed, who admitted the patient yesterday. When the patient presented to this hospital he was barely making any urine. He got several liters of IV fluids. Repeat labs were ordered for 5 PM yesterday. This included a complete blood count, and two blood cultures. At shift change this morning a blood culture showed up positive for Staphylococcus lugdunensis. So far this is 1 out of 2 bottles. There is no methicillin resistance on the [employer]. The patient got 1250 mg of IV vancomycin one-time. Reviewing imaging that is done so far he had a renal ultrasound yesterday on 06/01 that showed bilateral renal cysts. But otherwise the kidneys were normal. The day before, on 1112, CT scan of his head showed age-related neuro degenerative changes noted. There was no acute changes. And a chest x-ray on 05/31 showed no acute infiltrates. It appears that a limited echocardiogram was taken yesterday, but I do not find a read in our computer system at [place]. Looking through medications that the patient picks up from the pharmacy I noticed that he has been taking Dupixent for a long time. This is for treatment of asthma. So the patient is at least moderately immunocompromise due to the long-term Dupixent use. It appears that he was discharged from the [facility] on doxycycline because I see a short doxycycline prescription on 05/04/2025. So, given the long ICU stay, multiple indwelling lines including a Macon and a dialysis catheter, relative immunocompromise from the Dupixent, and elevated white blood count and mild temperatures I really do believe this is a hospital-acquired (the [facility]) bacteremia. During his stay here the last two days he has had mild temperature elevations up to 100 ?F this morning at 03:42 and 100 0.4 ?F yesterday at 04:00 in the morning. When I go into the room the patient is accompanied by his . She does help give the history. The patient had a pacemaker and AICD placed about 3 years ago. This was done in a singular operation. He has not needed any upgrades to that device since then. He did have a Watchman device placed in January. After that he no longer needed Eliquis. His hospitalization was roughly 17 days at the [facility]. It started on April 18. His describes that he had a whole big operation for pericardial fluid drainage. It seems like a drainage catheter was left in for about a day before that was removed. She describes Macon-Stacy catheter in his right internal jugular vein present, and she showed me a picture that on her phone which is consistent with a Macon-Stacy. He also had a left sided femoral hemodialysis catheter for at least 3 days of continuous renal replacement therapy. In all he was in the intensive care unit for about 16 days. They do recall that he had a hematoma on his right neck from the central line. His describes that he had a pure- wick, so at least the likelihood that he had an indwelling Billy catheter is lower. The describes that when the patient went home there was home health services and physical therapy coming out to the house about once a week. The patient was not really getting stronger. His level of strength was staying about the same as it was when he left the [facility]. But he was not getting worse for the first week at home. During the second week he began to have more fatigue and was sleeping more often. Then, on Wednesday, 6 days ago the patient was becoming much more fatigued. He was not able to get out of bed at all. He was not eating anything. He was not drinking anything. The patient does not describe any fevers or chills or shaking rigors at home. He does not describe any night sweats. He does not describe any cough. His only symptom over the last couple days has been some loose diarrhea. He does not describe any headaches. He does not describe any visual abnormalities. He does not describe any other signs or symptoms of infection such as cough, sore throat, difficulty urinating, cough, expectoration of sputum, or rhinorrhea. His said that when she came into the room today he looked better. He ate breakfast, so this is the first time he is eaten really any solid food in about a week. He was able to get up and ambulate from the bed to a bedside chair which is more activity than he had for a week. As the day has gone on he is ambulated from the chair to the bathroom with minimal standby assistance from the nurse. The tells me that he was told that his left ventricular ejection fraction is dropped to 20%. I note that back on December 10, 2024 an echo here showed LVEF of 40 to 45% with grade 1 diastolic dysfunction. On 12/14/2023 and echo here showed left ventricular ejection fraction 40%. And back on 06/01/2023 his left ventricular ejection fraction was 30 to 35%.'s with a dramatic drop of the LVEF down to 20% it sounds like the computer numerical control grinder at the [facility] pain and a great picture that his cardiac condition would not improve. The tells me that his baseline physical status back in March before that long hospital stay was that he was able to ambulate around the house. He is able to go up a flight of stairs. But his does most of the work in the house and she does the yard work. She describes that his physical activity is limited primarily due to asthma. Labs are reviewed: Creatinine curve: On April 18, when he came to the ER and was sent to [facility] his creatinine was 0.94. On May 07, when he must been at home, his creatinine was 1.57. On May 14 it had worsened a little bit to 1.60. And then for this hospital stay starting on May 31 it has been 1.81, then 2.08 yesterday morning, and 2.02 yesterday evening, and then 1.91 this morning. White blood count curve: On May 07 it was 6.6. When he presented the ER on May 31 it is 14.9. Yesterday morning it was 20.2. Yesterday afternoon, after lots of IV fluids, he was 16.6. This morning it is 15.6, before antibiotics were administered. On labs yesterday evening his neutrophil count was high at 82. And his manual neutrophil count was high at 13.6. Exam Narrative Exam Narrative: General: Reclining in a chair. Awake. Alert. He has some slowed responses and a little bit of unusual responses to my word so a mild to moderate metabolic encephalopathy is present. Skin: Warm and dry and well-perfused. Examination of both groins does not show any infection at the possible hemodialysis catheter sites from a month ago, and examination of the skin on both sides of his neck I do not see the insertion site for the Macon-Stacy catheter. Mouth: Dentition is fair. No active dental caries. Mucous membranes are moist. Tongue is midline. No thrush. Pulmonary: Clear to auscultation throughout. No wheezing. No rhonchi. No crackles. Cardiac: Irregular rhythm. I do not hear any murmurs. On telemetry he is having frequent PVCs. His Toprol has been held recently due to low blood pressures. GI: Abdomen soft, normal bowel sounds to auscultation. No tenderness to palpation all over his abdomen. Lower extremities: Absolutely no pitting edema at all. His says that he never got edema in his legs. Musculature. He does have mildly to moderately diminished musculature in his legs. Constitutional Vital Signs, click to edit/add: Last Vital Signs Temp 97.9 F 06/02/25 07:17 Pulse 102 H 06/02/25 10:00 Resp 20 06/02/25 07:17 BP 94/59 06/02/25 07:17 Pulse Ox 95 06/02/25 07:17 O2 Del Method Room Air 06/02/25 07:17 Internal Medicine - PN: Obj Da Labs Labs: Laboratory Results - last 24 hr 06/01/25 06/01/25 06/02/25 12:12 16:55 06:00 WBC 16.6 H 15.6 H RBC 3.20 L 3.10 L Hgb 9.7 L 9.2 L Hct 28.7 L 27.4 L MCV 89.7 88.4 MCH 30.3 29.7 MCHC 33.8 33.6 RDW 14.7 14.7 Plt Count 186 198 MPV 11.3 11.7 Seg Neuts % (Manual) 82.0 H Lymphocytes % (Manual) 11.0 L Monocytes % (Manual) 7.0 Eosinophils % (Manual) 0.0 L Basophils % (Manual) 0.0 L Neutrophils # (Manual) 13.61 H Lymphocytes # (Manual) 1.82 Monocytes # (Manual) 1.16 H Eosinophils # (Manual) 0.00 Basophils # (Manual) 0.00 Sodium 134 L 133 L Potassium 4.1 4.2 Chloride 101 102 Carbon Dioxide 20.7 L 20.2 L Anion Gap 16.4 15.0 BUN 40.0 H 42.0 H Creatinine 2.03 H 1.91 H Est GFR ( Amer) 40 L 43 L Est GFR (Non-Af Amer) 33 L 35 L BUN/Creatinine Ratio 19.7 22.0 Glucose 120 H 106 Calcium 8.4 L 8.7 Phosphorus 3.7 Magnesium 1.7 L 2.2 Specimen Source Blood A.calcoaceticus-baumannii cmplx PCR Not detected Bacteroides fragilis Not detected Annette albicans (PCR) Not detected Annette auris (PCR) Not detected C. glabrata (PCR) Not detected C. krusei (PCR) Not detected C. parapsilosis (PCR) Not detected C. tropicalis (PCR) Not detected C. neoform/gattii (PCR) Not detected Enterobacterales (PCR) Not detected E. cloacae complex PCR Not detected Enterococc faecalis PCR Not detected Enterococc faecium PCR Not detected E. coli (PCR) Not detected H. influenzae (PCR) Not detected Klebsiella aerogenes (PCR) Not detected Klebsiella oxytoca PCR Not detected K. pneumoniae group (PCR) Not detected List. monocytogenes PCR Not detected N. meningitidis (PCR) Not detected Proteus spp. (copies/mL) Not detected Salmonella spp. (PCR) Not detected Serratia marcescens PCR Not detected Staphylococcus sp PCR Detected A* Staph aureus (PCR) Not detected mecA/C & MREJ Resist Gene Not applicable mecA/C-Methicil Resis Gene Not detected mcr-1 Colistin Res Gene PCR Not applicable Staph epidermidis (PCR) Not detected Staph lugdunensis (TEM-PCR) Detected A* S. maltophilia (PCR) Not detected Streptococcus sp PCR Not detected Strep agalactiae (PCR) Not detected Strep pneumoniae (PCR) Not detected S. pyogenes (PCR) Not detected P. aeruginosa (PCR) Not detected Luci/B-Vanco Res Genes Not applicable blaIMP Car res Gene PCR Not applicable KPC (blaKPC) Detect PCR Not applicable NDM (blaNDM) Detect PCR Not applicable OXA-48 Carbapenem Resis Gene (PCR) Not applicable blaVIM Car Res Gene PCR Not applicable CTX-M ESBL (PCR) Not applicable
[2025-06-02] MEDS: ASCORBIC ACID 500 MG TABLET PO (11:33)
[2025-06-02] MEDS: L. ACIDOPHILUS/L.BULGARICUS 1 PACKET GRAN.PACK PO ×2 (11:33→21:24)
[2025-06-02] MEDS: MULTIVITAMIN TABLET 1 TAB PO (11:33)
[2025-06-02] MEDS: CEFAZOLIN SODIUM/DEXTROSE,ISO 2 GM/50 ML PIGGYBACK IV ×2 (11:43→23:51)
[2025-06-02 12:10] LABS: Magnesium 2.5 mg/dL (1.8-2.4)
[2025-06-02] MEDS: ALBUMIN HUMAN 25 GM/100 ML PREMIX IV ×2 (12:19→13:14)
[2025-06-02] MEDS: 0.9 % SODIUM CHLORIDE 250 ML 10 ML IV (12:20)
[2025-06-02] MEDS: DEXTROSE 5 %-0.45 % SOD CHLORD 1,000 ML 150 ML IV (16:18)
[2025-06-02] MEDS: ATORVASTATIN CALCIUM 40 MG TABLET PO (21:24)
[2025-06-02] MEDS: ENOXAPARIN SODIUM 40 MG/0.4 ML SYRINGE SUBQ (21:24)
[2025-06-02] MEDS: ALBUTEROL SULFATE 2.5 MG/3 ML VIAL NEB IH (21:54)
[2025-06-02] MEDS: BUDESONIDE 0.5 MG/2 ML AMPULE NEB IH (21:55)
[2025-06-03] VITALS (24 sets, daily range): BP systolic 96–118; BP diastolic 62–71; PULSE 82–112; TEMP 36.3–36.9; O2SAT 94–98
[2025-06-03] MEDS: ALBUTEROL SULFATE 2.5 MG/3 ML VIAL NEB IH ×4 (05:39→20:54)
[2025-06-03 06:39] LABS: Hematocrit 25.3 % (42.0-54.0); Hemoglobin 8.7 g/dL (14.0-18.0); Immature Granulocytes Abs Auto 0.04 10^3/uL (0.00-0.03); Immature Granulocytes Pct Auto 0.4 % (0.0-0.5); Lymphocytes Absolute Auto 1.1 10^3/uL (1.2-3.8); Mean Corpuscular HGB Conc 34.4 g/dL (29.9-35.2); Mean Corpuscular Hemoglobin 30.0 pg (25.9-34.0); Mean Corpuscular Volume 87.2 fL (80.0-94.0); Platelet Count 167 10^3/uL (150-450); Red Blood Count 2.90 10^6/uL (4.70-6.10); White Blood Count 9.0 10^3/uL (4.0-11.0)
[2025-06-03 07:08] LABS: INR 1.22; Partial Thromboplastin Time 33.7 sec (22.3-36.2); Prothrombin Time 12.7 sec (9.0-11.6)
[2025-06-03 07:21] LABS: Alanine Aminotransferase 94 U/L (16-63); Albumin Globulin Ratio 0.6; Albumin Level 2.5 g/dL (3.4-5.0); Alkaline Phosphatase 74 U/L (46-116); Anion Gap 16.0; Aspartate Amino Transferase 108 U/L (15-37); Blood Urea Nitrogen 41.0 mg/dL (7.0-18.0); Calcium 8.2 mg/dL (8.5-10.1); Carbon Dioxide 19.0 mmol/L (21.0-32.0); Chloride 101 mmol/L (98-107); Creatine Kinase 24 U/L (39-308); Estimated GFR (African America 54 (>=60 mL/min/1.73m^2); Estimated GFR (Non-African Ame 45 (>=60 mL/min/1.73m^2); Globulin 4.2 g/dL; Glucose 101 mg/dL (74-106); Potassium 4.0 mmol/L (3.5-5.1); Prealbumin 9.8 mg/dL (20.9-45.5); Sodium 132 mmol/L (136-145); Total Protein 6.7 g/dL (6.4-8.2); Uric Acid 4.2 mg/dL (3.5-7.2)
[2025-06-03] MEDS: ASPIRIN 81 MG TABLET.DR PO (08:26)
[2025-06-03] MEDS: L. ACIDOPHILUS/L.BULGARICUS 1 PACKET GRAN.PACK PO ×2 (08:26→22:03)
[2025-06-03] MEDS: CLOPIDOGREL BISULFATE 75 MG TABLET PO (08:26)
[2025-06-03] MEDS: MULTIVITAMIN TABLET 1 TAB PO (08:26)
[2025-06-03] MEDS: METOPROLOL SUCCINATE 25 MG TAB.ER.24H PO (08:29)
[2025-06-03] MEDS: ASCORBIC ACID 500 MG TABLET PO (08:41)
[2025-06-03] MEDS: BUDESONIDE 0.5 MG/2 ML AMPULE NEB IH ×2 (10:57→20:54)
[2025-06-03] MEDS: CEFAZOLIN SODIUM/DEXTROSE,ISO 2 GM/50 ML PIGGYBACK IV ×2 (11:05→22:03)
--- NOTE | 2025-06-03 15:29 | PM.IMPN1 ---
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 Acute kidney injury, due to the above. Hypotension, due to the above. Acute metabolic encephalopathy, due to all 3 of the problems above. Diarrhea, due to supratherapeutic effects of colchicine, exacerbated by Lipitor. Currently improving. Chronic systolic congestive heart failure, with left-ventricular ejection fraction worsening 1.5 months ago down to 20% in the setting of large pericardial effusion which needed pericardiocentesis. Chronic kidney disease, with acute kidney injury last month, needing 3 days of chronic renal replacement therapy/continuous hemodialysis, at the [facility]. History of atrial fibrillation, with watchman's device in place, so he does not require full anticoagulation. History of pacemaker/AICD implantation 3 years ago. 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 Physical weakness. Muscular weakness. Physical deconditioning. Plan: Since there is no methicillin resistance I did transition antibiotics on 06/02/25 to IV Ancef, dose adjusted by pharmacy, for his renal clearance. Currently on 2 g of Ancef every 12 hours, but if creatinine improves this dosage may change. ISDA recommends 4 weeks to 6 weeks of IV antibiotics for this bacteremia. His GDMT has been dropped back a great deal due to hypotension. Currently today he got 25 mg of Toprol daily. Would consider increasing his Toprol if his blood pressure rises enough to allow this. If creatinine improves significantly may be able to tolerate a low-dose of spironolactone and low-dose of SGLT2. Both of these are on hold at this time. Continue telemetry monitoring. Continue to work with physical therapy and work on getting him stronger. Probiotic to help reduce antibiotic associated diarrhea. His is bringing in boost protein shakes from home. Hold colchicine for the next few days to make sure the diarrhea resolves. Also holding Lipitor during this time. May be able to resume colchicine at 0.3 mg daily. On Lovenox 40 mg subcutaneously daily for DVT prophylaxis. Further care for this patient will be undertaken by Dr. Moon coming on Wednesday. We will be looking for results of the limited echocardiogram taken on Wednesday, primarily to rule out bacterial vegetation, but to reevaluate left ventricular ejection fraction, which had reportedly been 20% at [facility] last month, and make sure there is not been a large return of the pericardial effusion. Internal Medicine - PN: Subj Subjective Interval history: According to bedside nurse the patient has had a better day today. He had a pretty good breakfast. His urine volume is picking up. He had a bowel movement that was less like diarrhea like he was having yesterday and softer. He has had more energy. He spent more time out of bed. His says that he is looking stronger. I asked about the diarrhea, because that seems to be strange in somebody who did not eat food at home for about a week before coming in. I think that it might be due to toxic effects from the colchicine that he was put on at [facility], which in combination with statin can cause myopathy. But the reports that the patient really did not have any diarrhea until he got to the hospital. And it is calming down. At home he did not complain of abdominal pain. And he did not complain of vomiting. The blood cultures, the way they are reported here at the [facility], can be very difficult to follow but on really deep investigation it is documented that both bottles lit up positive so this really is a positive blood culture and both bottles, where yesterday it appeared to be only 1. The patient denies any shortness of breath. Denies any chest pain. He denies any headache. He denies any fevers chills or rigors. He denies any arthralgias or myalgias. Lab review: His white blood count curve is been the followin.9, 20.2, 16.6, 15.6 (at the time that IV vancomycin was infusing for the first time) and today 9.0. Hemoglobin count has drifted down from 11.5 on presentation to 8.7 today, due to IV fluid rehydration. Creatinine curve is been 1.81, 2.08, 2.03, 1.91 yesterday morning, and 1.55 today. C-reactive protein was 24.86 yesterday, and 12.71 today. ESR was greater than 130 yesterday, and improved today to 89. Albumin is a little bit low at 2.5 and prealbumin is very low at 9.8, so he has severe protein calorie malnutrition. Total creatinine kinase is actually low at 24, so acute myopathy (the combination of colchicine and statin medication) is unlikely. Exam Narrative Exam Narrative: Exam Narrative: General: Relaxing in bed. at the bedside. Did have moderate metabolic encephalopathy yesterday which is improved about 50% today. Skin: Warm and dry and well-perfused. I do not see any wounds on his skin anywhere. No open wounds. No drainage. No cellulitis. No IV site phlebitis. Examination of both groins does not show any infection at the possible hemodialysis catheter sites from a month ago, and examination of the skin on both sides of his neck I do not see the insertion site for the Equality-Stacy catheter. Back: No pain to palpation down to his cervical, thoracic, or lumbar spine. Mouth: Dentition is fair. No active dental caries. Mucous membranes are moist. Tongue is midline. No thrush. Pulmonary: Clear to auscultation throughout. No wheezing. No rhonchi. No crackles. Cardiac: Irregular rhythm. I do not hear any murmurs. On telemetry he is having frequent PVCs. His Toprol has been held recently due to low blood pressures. GI: Abdomen soft, normal bowel sounds to auscultation. No tenderness to palpation all over his abdomen. Lower extremities: Absolutely no pitting edema at all. His says that he never got edema in his legs. Musculature. He does have moderately diminished musculature in his legs. Constitutional Vital Signs, click to edit/add: Last Vital Signs Temp 98.1 F 06/03/25 12:00 Pulse 108 H 06/03/25 14:00 Resp 20 06/03/25 12:00 BP 109/70 06/03/25 12:00 Pulse Ox 94 L 06/03/25 12:00 O2 Del Method Room Air 06/03/25 12:00 Internal Medicine - PN: Obj Da Labs Labs: Laboratory Results - last 24 hr 06/03/25 05:48 WBC 9.0 RBC 2.90 L Hgb 8.7 L Hct 25.3 L MCV 87.2 MCH 30.0 MCHC 34.4 RDW 14.6 Plt Count 167 MPV 11.7 Neut % (Auto) 70.3 Lymph % (Auto) 12.4 L [place] % (Auto) 16.5 H Eos % (Auto) 0.3 L Baso % (Auto) 0.1 L Neut # (Auto) 6.3 Lymph # (Auto) 1.1 L [place] # (Auto) 1.5 H Eos # (Auto) 0.0 Baso # (Auto) 0.0 Abs Immat Gran (auto) 0.04 H Imm/Tot Granulo (auto) 0.4 ESR 89 H PT 12.7 H INR 1.22 APTT 33.7 Sodium 132 L Potassium 4.0 Chloride 101 Carbon Dioxide 19.0 L Anion Gap 16.0 BUN 41.0 H Creatinine 1.55 H Est GFR ( Amer) 54 L Est GFR (Non-Af Amer) 45 L BUN/Creatinine Ratio 26.5 Glucose 101 Estimat Average Glucose 117 Hemoglobin A1c 5.7 Uric Acid 4.2 Calcium 8.2 L Total Bilirubin 0.3 Direct Bilirubin 0.2 AST 108 H ALT 94 H Alkaline Phosphatase 74 Total Creatine Kinase 24 L Myoglobin 93 C-Reactive Protein 12.71 H Total Protein 6.7 Albumin 2.5 L Globulin 4.2 Albumin/Globulin Ratio 0.6 Prealbumin 9.8 L
--- OUTSIDE RECORDS SUMMARY | 2025-06-03 19:04 | XMS_ITS | Continuity of Care Document ---
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 Name Role Phone Valdemar Avila MD Attending Provider [phone] Provider, Outside Attending Provider Unavailable Rudy Guerra MD Primary Care Provider [phone] Elliott Nettles NP-C Attending Provider Rudy Guerra MD Attending Provider Celina Garner MD Attending Provider Ling Pickett NP-C Attending Provider Jean Pierre Syed DO Attending Provider [phone] NON STAFF Attending Provider Unavailable Eric Deleon DO Attending Provider Care Teams Patient Care Team Team Status: [...] tart: May 16, 2025 End: May 16, 2025Lyndsay Bernstein ProviderActiveStart: May 16, 2025 End: May 16, 2025 Visit Care Team Team Status: Inactive Member Role/Relationship Status Dates Rudy Guerra MD Primary Care Provider Active S tart: May 23, 2025 End: May 23Lyndsay Sadler ProviderActiveStart: May 23, 2025 End: May 23, 2025 Visit Care Team Team Status: Active Member Role/Relationship Status Dates Rudy Guerra MD Primary Care Provider Active S tart: May 31, 2025 Ling Pickett NP-CAttending ProviderActiveStart: May 31, 2025 Visit Care Team Team Status: Active Member Role/Relationship Status Dates Rudy Guerra MD Primary Care Provider Active S tart: June 01, 2025 Jean Pierre Syed DOAttchel ProviderActiveStart: June 01, 2025 Visit Care Team Team Status: Inactive Member Role/Relationship Status Dates NON STAFF Attending Provider Active Start: No vember 2024 End: June 01, 2025 Visit Care Team Team Status: Inactive Member Role/Relationship Status Dates Jean Pierre Syed DO Attending Provider Active St art: June 01, 2025 End: June 01, 2025 Visit Care Team Team Status: Active Member Role/Relationship Status Dates Rudy Guerra MD Primary Care Provider Active S tart: June 02, 2025 Lyndsay Schneider ProviderActiveStart: June 02, 2025 Visit Care Team Team Status: Inactive Member Role/Relationship Status Dates NON STAFF Attending Provider Active Start: No vember 2024 End: June 02, 2025 Visit Care Team Team Status: Inactive Member Role/Relationship Status Dates NON STAFF Attending Provider Active Start: No vember 2024 End: June 02, 2025 Visit Care Team Team Status: Active Member Role/Relationship Status Dates Rudy Guerra MD Primary Care Provider Active S tart: June 03, 2025 Eric Deleon DOAttending ProviderActiveStart: June 03, 2025 Chief Complaint and Reason for Visit Chief Complaint Admit Date Hospital Followup May 16, 2025 9 :26am hypnatremia ref by Hay ledesma 2024 1:04pm Reason for Visit Admit Date Benign essential hypertension May 162024 9:26am Chronic HFrEF (heart failure with reduced ejection fraction) May 16, 2025 9:26am Coronary artery disease invo l[facility] coronary artery of [place] heart [place] May 16, 2025 9:26am Nonischemic [...] Legal Sex [facility] (finding[facility] 1955 Problems Active Problems Problem Diagnosis/Recorded Date Onset Date Stat Acute kidney injury May 23, 2025 1:04pm [...] Unknown Active Coronary artery disease invo lving [facility] coronary artery of [place] heart without angina pectoris April 20, 2025 [...] of breath or wheezing 8.5 3September 2024 11:00pmUnknownAtorvastatin 40 mg mxrpylDulpwa11HLGGQzmmx April 19, 2025 11:00pmUnknownMetoprolol Succinate 50 mg tablet extended release 24 vjJariuhtbzdvx39VSELEmhvqLwsolxi 2nd, 2025 11:00pmNov2024 1:12pmSpironolactone 25 mg fdjbvhKsluyv81PODSSqjbdKfufjns 2nd, 2025 11:00pm UnknownFluticasone Propion-Salmeterol 500-50 mcg/dose blister with device Goamnomzmnkn4FMSMEHFGJAFIHWixlk dailyOct2024 11:00pmOctober 2024 8:38amAllopurinol 300 mg cvydngRencmo198WTHRUxqtdTsoofja 2024 11:00pm UnknownAlbuterol Sulfate 90 mcg/actuation HFA aerosol ifuzxubWefmrz2VGFK INHALATIONEvery 4 hours as neededApril 19, 2025 11:00pmUnknownFluticasone Furoate 27.5 mcg/actuation spray,idaltpnlgxNilnkocjhfcs8UMZAKIUFQZMNQDGAnepu April 19, 2025 11:00pmOctgood sam[facility]itan [facility] 2024 8:38aminto each nostrilApixaban (Eliquis) 5 mg vtwwmlKhwmmaknaimt2TDYWIjtlh dailyOctgood sam[facility]itan hospital 2024 11:00pm May 16, 2025 8:36amDapagliflozin Propanediol (Farxiga) 10 mg tabletActive 10MGPODailyOctgood sam[facility]itan hospital 2024 11:00pmUnknownSacubitril-Valsartan 49-51 mg tablet Itrjykkifzog6ACKZYXzrry dailyOct2024 11:00pmOctgood samaritan hospital 2024 8:39am Dupilumab (Dupixent Pen) 300 mg/2 mL pen rjvwjfzkFsvbny841MGOTPVPRMEMOS 2 WEEKS April 19, 2025 11:00pmUnknownMetoprolol Succinate 25 mg tablet extended release 24 baNspvaq58.5MGPOdailyLexington Shriners Hospital 2024 12:00amUnknownClopidogrel 75 mg cnrnxhYymlum25OOPLXuxsmDivnpjr 2024 11:00pmUnknownAcetaminophen (Tylenol Extra Strength) 500 mg bmqntgXiwmsb361HROBWxtzs 6 hours as needed May 15, 2025 11:00pmUnknownFluticasone Propion-Salmeterol (Advair Diskus) 500-50 mcg/dose blister with tdgphqRrvtia6EGMUPZNKGJXJFVaybr dailyOctgood samaritan hospital 2024 11:00pmUnknownAspirin 81 mg tbcqdsSeyxzw18VAJSHkjndGdfvevv 2024 11:00pmUnknownFurosemide 20 mg vlwmsrDzhyxmzuvbta24OFBXWgcucRvresml 2024 11:00pmNov2024 1:12pmColchicine 0.6 mg tabletActiveMGPODailyOctgood sam[facility]itan hospital 2024 11:00pmUnknownFluticasone Propionate 50 mcg/actuation spray,suspensionDiscontinuedINTRANASALOctgood samaritan hospital 2024 11:00pmMay 23, 2025 1:12pmFluticasone Propionate 50 mcg/actuation spray,jboryjecpzRfolcg4UTUWS INTRANASALTwice dailyMay 23, 2025 1:10pmUnknownFurosemide 20 mg tablet Vfabrc39TEOHYlaosOiuaktzk 5th, 2025 1:10pmUnknown Procedures Procedure Date Performed Status Blood Culture June 01, 2025 active Blood Culture June 02, 2025 active Blood Culture June 01, 2025 active Blood Culture June 02, 2025 active Relevant Diagnostic Tests and/or Laboratory Data Laboratory Results Test Collection Date/Time Result Date/Time Result Interpretation Reference Range Result Comment Performing Site B-Type Natriuretic Peptide April 18, 2025 10:25pm April 18, 2025 10:25pm 332.0 pg/mL <=900.0Troponin I High SensitivityOct2024 10:25pmOctober 2024 10:25pm11.5 pg/mL4.0-76.1CUT-OFF POINTS HAVE BEEN ESTABLISHED BASED ON THE UNIVERSAL DEFINITION OF MYOCARDIAL INFARCTION. THE UPPERREFERENCE LIMIT (URL) OF TROPONIN, DEFINED THE 99THPERCENTILE OF cTnI DISTRIBUTION IN A REFERENCE POPULATION,HAS BEEN CONFIRMED THE DECISION THRESHOLD FOR MIDIAGNOSIS.99TH PERCENTILE = 76.2 PG/MLNOTE: HIGH-SENSITIVITY TROPONIN ASSAY IS NOT INTENDED TO BEUSED IN ISOLATION BUT SHOULD BE INTERPRETED IN CONJUNCTIONWITH OTHER DIAGNOSTIC AND CLINICAL INFORMATION.Anion GapApril 18, 2025 10:25pm April 18, 2025 10:25pm15.7Basophils # (Auto)April 18, 2025 10:25pmOctober 2024 10:25pm0.0 10 3/uL0.0-0.1Troponin I High SensitivityOct2024 12:30amOctober 2024 12:30am10.5 pg/mL4.0-76.1CUT-OFF POINTS HAVE BEEN [...] diagnosis of Covid-19 under section 564(b)(1) of the[facility], 21 [place] 360bbb-3(b)(1), unless the declaration isterminated or authorization is revoked sooner.Bedside Influenza Type A AntigenOct2024 4:30amOctober 2024 4:30amNegativeNegative for Flu A protein antigen. Infection due to Flu Acannot be ruled out. Flu A antigen in thesample may bebelow the detection limit of the test.Anion GapOct2024 6:58amOctober 2024 6:58am14.9 Basophils # (Auto)May 07, 2025 6:58amOctober 2024 6:58am0.0 10 3/uL 0.0-0.1B-Type Natriuretic PeptideOctober 2024 1:38pmOctober 2024 1:74nk4266.0 pg/mLAbove upper panic limits<=900.0RESULTS CALLED TO CEFERINO CURRY Anion GapOctober 2024 1:38pmOctober 2024 1:38pm15.6Anion GapNov2024 2:10pmNovember 2024 2:10pm15.5Basophils # (Auto)May 31, 2025 2:10pmNovember 2024 2:10pm0.0 10 3/uL0.0-0.1Urine Microscopic Review May 31, 2025 4:30pmNov2024 4:30pmNOBasophils # (Auto)June 01, 2025 5:06amNovemb2024 5:06am0.0 10 3/uL0.0-0.1Magnesium Level June 01, 2025 4:55pmJune 01, 2025 4:55pm1.7 mg/dLBelow low normal 1.8-2.4Phosphorus LevelJune 01, 2025 4:55pmJune 01, 2025 4:55pm3.7 mg/dL2.6-4.7Anion GapJune 01, 2025 4:55pmJune 01, 2025 4:55pm16.4 HematocritJune 01, 2025 4:55pmJune 01, 2025 4:55pm28.7 %Below low dyvzhz76.0-54.0Anion GapJune 02, 2025 6:00amNove2024 6:00am15.0 HematocritJune 02, 2025 6:00amNove2024 6:00am27.4 %Below low bkxzda80.0-54.0C-Reactive Protein, QuantitativeJune 02, 2025 11:14am June 02, 2025 11:14am24.86 mg/dLAbove high normal<=0.50Troponin I High SensitivityJune 02, 2025 11:14amNove2024 11:14am16.3 pg/mL 4.0-76.1CUT-OFF POINTS HAVE BEEN ESTABLISHED BASED ON THE FOURTHUNIVERS DEFINITION OF MYOCARDIAL INFARCTION. THE UPPERREFERENCE LIMIT (URL) OF TROPONIN, DEFINED THE 99THPERCENTILE OF cTnI DISTRIBUTION IN A REFERENCE POPULATION,HAS BEEN CONFIRMED THE DECISION THRESHOLD FOR MIDIAGNOSIS.99TH PERCENTILE = 76.2 PG/MLNOTE: HIGH-SENSITIVITY TROPONIN ASSAY IS NOT INTENDED TO BEUSED IN ISOLATION BUT SHOULD BE INTERPRETED IN CONJUNCTIONWITH OTHER DIAGNOSTIC AND CLINICAL INFORMATION.Magnesium LevelJune 02, 2025 11:14amNove2024 11:14am2.5 mg/dLAbove high normal1.8-2.4Erythrocyte Sedimentation Rate June 02, 2025 11:14amNovemb2024 11:14am>130 mm/hrAbove high normal<=20PrealbuminJune 03, 2025 5:48amNovember 2024 5:48am9.8 mg/dLBelow low airwqt41.9-45.5June 03, 2025 5:48am9.8 mg/dLBelow low mxqydk14.9-45.5C-Reactive Protein, QuantitativeJune 03, 2025 5:48am June 03, 2025 5:48am12.71 mg/dLAbove high normal<=0.50MyoglobinJune 03, 2025 5:48am93 ng/fI96-02Fibrn Creatine KinaseJune 03, 2025 5:48am24 U/LBelow low iffrty34-159Kmju AcidJune 03, 2025 5:48am4.2 mg/dL3.5-7.2 Anion GapJune 03, 2025 5:48am16.0Albumin/Globulin RatioNove2024 5:48am0.6Activated Partial Thromboplast TimeJune 03, 2025 5:48amNove2024 5:48am33.7 sec22.3-36.2Prothromb Time International RatioN2024 5:48amNovemb2024 5:48am1.22DESIRED INR:2.0-3.0 CONDITIONS NOT LISTED BELOW2.5-3.5 FOR PROSTHETIC HEART VALVE REPLACEMENT2.5-3.5 RECURRENT THROMBOSISEstimated Average GlucoseJune 03, 2025 5:48amNovemb2024 5:56lu541 mg/dLErythrocyte Sedimentation RateJune 03, 2025 5:48amNovemb2024 5:48am89 mm/hrAbove high normal<=20Basophils # (Auto)June 03, 2025 5:48amNovemb2024 5:48am0.0 10 3/uL0.0-0.1BUN/Creatinine Ratio April 18, 2025 10:25pmOctober , 2024 10:25pm16.0Basophils (%) (Auto) April 18, 2025 10:25pmOctober , 2024 10:25pm0.3 %0.2-2.0Bedside Influenza Type B AntigenOct2024 4:30amOctober , 2024 4:30amNegativeNegative for Flu B protein antigen. Infection due to Flu Bcannot be ruled out. Flu B antigen in thesample may bebelow the detection limit of the test.BUN/Creatinine RatioOctober 2024 6:58amOctober , 2024 6:58am19.7Basophils (%) (Auto) May 07, 2025 6:58amOctober , 2024 6:58am0.3 %0.2-2.0BUN/Creatinine RatioOctober 2024 1:38pmOctober 2024 1:38pm25.6Albumin/Globulin RatioNoveer 2024 2:10pmNovember 2024 2:10pm0.5Basophils (%) (Auto) May 31, 2025 2:10pmNov2024 2:10pm0.1 %Below low normal0.2-2.0 Urine BilirubinMay 31, 2025 4:30pmNovember 2024 4:30pmNEGATIVE NEGATIVEBasophils (%) (Auto)June 01, 2025 5:06amNovember 2024 5:06am 0.2 %0.2-2.0BUN/Creatinine RatioNoveer 2024 4:55pmNovember 2024 4:55pm19.7HemoglobinNov2024 4:55pmNovember 2024 4:55pm9.7 g/dL Below low cskryn18.0-18.0BUN/Creatinine RatioNovember 2024 6:00amNovember 2024 6:00am22.0HemoglobinNov2024 6:00amNovember 2024 6:00am9.2 g/dLBelow low txiapl54.0-18.0BUN/Creatinine RatioNovember 2024 5:48am26.5AlbuminNovember 2024 5:48am2.5 g/dLBelow low normal3.4-5.0 Prothrombin TimeNov2024 5:48amNovemb2024 5:48am12.7 sec Above high normal9.0-11.6Hemoglobin I7tAwcilrqs2024 5:48amNovember 2024 5:48am5.7 %4.5-6.2ADA RECOMMENDED LIMIT 4.0 - 6.0ADA THERAPEUTIC TARGET < 7.0ACTION SUGGESTED> 7.0Basophils (%) (Auto)June 03, 2025 5:48amNovember 2024 5:48am0.1 %Below low normal0.2-2.0Blood Urea NitrogenOct2024 10:25pmOctober 2024 10:25pm15.0 mg/dL7.0-18.0Eosinophils # (Auto) April 18, 2025 10:25pmOctober 2024 10:25pm0.0 10 3/uL0.0-0.7Blood Urea NitrogenOctober 2024 6:58amOctober 2024 6:58am31.0 mg/dLAbove high normal7.0-18.0Eosinophils # (Auto)May 07, 2025 6:58amOctober 2024 6:58am0.1 10 3/uL0.0-0.7Blood Urea NitrogenOctober 2024 1:38pmOctober 2024 1:38pm41.0 mg/dLAbove high normal7.0-18.0AlbuminNov2024 2:10pmNov2024 2:10pm2.7 g/dLBelow low normal3.4-5.0Eosinophils # (Auto)May 31, 2025 2:10pmNov2024 2:10pm0.0 10 3/uL0.0-0.7 Urine Occult BloodNov2024 4:30pmNovember 2024 4:30pmNEGATIVE NEGATIVEEosinophils # (Auto)June 01, 2025 5:06amNovember 2024 5:06am 0.0 10 3/uL0.0-0.7Blood Urea NitrogenNovember 2024 4:55pmNovember 2024 4:55pm40.0 mg/dLAbove high normal7.0-18.0Mean Corpuscular Hemoglobin June 01, 2025 4:55pmNovember 2024 4:55pm30.3 pg25.9-34.0Blood Urea NitrogenNovember 2024 6:00amNovember 2024 6:00am42.0 mg/dLAbove high normal7.0-18.0Mean Corpuscular HemoglobinNovember 2024 6:00amNovember 2024 6:00am29.7 pg25.9-34.0Blood Urea NitrogenNovember 2024 5:48am 41.0 mg/dLAbove high normal7.0-18.0Alkaline PhosphataseNovember 2024 5:48am74 U/R80-012Obckgjbkjny # (Auto)June 03, 2025 5:48amNovember 2024 5:48am0.0 10 3/uL0.0-0.7Calcium LevelOct2024 10:25pmOctober 2024 10:25pm10.4 mg/dLAbove high normal8.5-10.1Eosinophils (%) (Auto)April 18, 2025 10:25pmOctober 2024 10:25pm0.1 %Below low normal0.9-7.0Calcium LevelOct2024 6:58amOctober 2024 6:58am9.0 mg/dL8.5-10.1 Eosinophils (%) (Auto)May 07, 2025 6:58amOctober 2024 6:58am1.2 % 0.9-7.0Calcium LevelOctober 2024 1:38pmOctober 2024 1:38pm9.8 mg/dL 8.5-10.1Alkaline PhosphataseNov2024 2:10pmNov2024 2:10pm 116 U/O16-797Tjndfpfklqp (%) (Auto)May 31, 2025 2:10pmNov2024 2:10pm0.1 %Below low normal0.9-7.0Urine AppearanceNov2024 4:30pm May 31, 2025 4:30pmCLEARCLEAREosinophils (%) (Auto)June 01, 2025 5:06amNove2024 5:06am0.1 %Below low normal0.9-7.0Calcium Level June 01, 2025 4:55pmNov2024 4:55pm8.4 mg/dLBelow low normal 8.5-10.1Mean Corpuscular Hemoglobin [facility]At[facility]2024 4:55pmNovbanner oc[facility] 2024 4:55pm33.8 g/dL29.9-35.2Calcium LevelLexington Shriners Hospital 2024 6:00am June 02, 2025 6:00am8.7 mg/dL8.5-10.1Mean Corpuscular Hemoglobin Concent June 02, 2025 6:00amNovember 2024 6:00am33.6 g/dL29.9-35.2Calcium LevelLexington Shriners Hospital 2024 5:48am8.2 mg/dLBelow low normal8.5-10.1Alanine Aminotransferase (ALT/SGPT)June 03, 2025 5:48am94 U/LAbove high normal 16-63Eosinophils (%) (Auto)June 03, 2025 5:48amNovember 2024 5:48am 0.3 %Below low normal0.9-7.0Chloride LevelOctober 2024 10:25pmOct2024 10:25pm86 mmol/LBelow low ctpcpa19-712LebbjuwtptVrlnnge 2024 10:25pm April 18, 2025 10:25pm41.3 %Below low fogehf51.0-54.0Chloride LevelOctober 2024 6:58amOctober 2024 6:35lw301 mmol/S79-569AvqrogdocxVhdshyr 2024 6:58amOctober 2024 6:58am33.4 %Below low rganhb09.0-54.0 Chloride LevelOctober 2024 1:38pmOctober 2024 1:45kv182 mmol/L98-107 Alanine Aminotransferase (ALT/SGPT)May 31, 2025 2:10pmNovember 2024 2:52li374 U/LAbove high gxgvqi36-89YyekmghatlHkgccigw 13th, 2025 2:10pmNovember 2024 2:10pm33.9 %Below low ciffxh86.0-54.0Urine ColorNovember 2024 4:30pmNovember 2024 4:30pmYELLOWYELLOWChloride LevelNovember 2024 4:55pmNovember 2024 4:80hj290 mmol/X74-590Xgvz Corpuscular VolumeNovember 2024 4:55pmNovember 2024 4:55pm89.7 fL80.0-94.0Chloride Level June 02, 2025 6:00amNovember 2024 6:45qz762 mmol/K65-312Xwqs Corpuscular VolumeNovember 2024 6:00amNovember 2024 6:00am88.4 fL 80.0-94.0Chloride LevelNovember 2024 5:44fy499 mmol/X99-452Smzwcfhob Amino Transf (AST/SGOT)June 03, 2025 5:24ro914 U/LAbove high noobtz04-50 HematocritNovember 2024 5:48amNovember 2024 5:48am25.3 %Below low .0-54.0Carbon Dioxide LevelOct2024 10:25pmOctober 2024 10:25pm25.4 mmol/L21.0-32.0HemoglobinOctober 2024 10:25pmOctober 2024 10:25pm14.6 g/dL14.0-18.0Carbon Dioxide LevelOct2024 6:58amOctober 2024 6:58am25.3 mmol/L21.0-32.0HemoglobinOct2024 6:58amOctober 2024 6:58am11.3 g/dLBelow low hefvjh53.0-18.0Carbon Dioxide LevelOct2024 1:38pmOctober 2024 1:38pm26.3 mmol/L21.0-32.0Aspartate Amino Transf (AST/SGOT)May 31, 2025 2:10pmNov2024 2:76di506 U/L Above high yoauzn26-13BaktojxlzmVzuvbmeo 13th, 2025 2:10pmNov2024 2:10pm11.5 g/dLBelow low rjnrug60.0-18.0Urine Glucose (UA)May 31, 2025 4:30pmNov2024 4:30pm>=1000 mg/dLAbnormal (applies to non-numeric results)NEGATIVECarbon Dioxide LevelNov2024 4:55pmNov2024 4:55pm20.7 mmol/LBelow low .0-32.0Mean Platelet VolumeNov2024 4:55pmNovember 2024 4:55pm11.3 fL9.5-13.5Carbon Dioxide Level June 02, 2025 6:00amNovember 2024 6:00am20.2 mmol/LBelow low normal 21.0-32.0Mean Platelet VolumeNov2024 6:00amNovember 2024 6:00am11.7 fL9.5-13.5Carbon Dioxide LevelNov2024 5:48am19.0 mmol/L Below low jitlws91.0-32.0Direct BilirubinNov2024 5:48am0.2 mg/dL 0.0-0.2HemoglobinNov2024 5:48amNovember 2024 5:48am8.7 g/dL Below low izcycz54.0-18.0CreatinineOctober 2024 10:25pmOctober 2024 10:25pm0.94 mg/dL0.70-1.30Immature Granulocyte # (Auto)April 18, 2025 10:25pm April 18, 2025 10:25pm0.02 10 3/uL0.00-0.03CreatinineOctober 2024 6:58amOctober 2024 6:58am1.57 mg/dLAbove high normal0.70-1.30Immature Granulocyte # (Auto)May 07, 2025 6:58amOctober 2024 6:58am0.02 10 3/uL0.00-0.03CreatinineOctober 2024 1:38pmOctober 2024 1:38pm1.60 mg/dLAbove high normal0.70-1.30BUN/[facility] 2:10pm May 31, 2025 2:10pm21.0Immature Granulocyte # (Auto)May 31, 2025 2:10pmNov2024 2:10pm0.13 10 3/uLAbove high normal0.00-0.03Urine KetonesMay 31, 2025 4:30pmNovember 2024 4:30pmTRACE mg/dLAbnormal (applies to non-numeric results)NEGATIVEImmature Granulocyte # (Auto)June 01, 2025 5:06amNovember 2024 5:06am0.21 10 3/uLAbove high normal 0.00-0.03CreatinineNov2024 4:55pmNovember 2024 4:55pm2.03 mg/dLAbove high normal0.70-1.30Platelet CountNov2024 4:55pmNovember 2024 4:56jk417 10 3/eZ707-686XyfqagzynnIxatzeon 15th, 2025 6:00amNovember 2024 6:00am1.91 mg/dLAbove high normal0.70-1.30Platelet CountNovember 2024 6:00amNovember 2024 6:50vo095 10 3/cG500-934BjukjkudfxXvahvjof 16th, 2025 5:48am1.55 mg/dLAbove high normal0.70-1.30GlobulinNovember 2024 5:48am4.2 g/dLImmature Granulocyte # (Auto)June 03, 2025 5:48amNovember 2024 5:48am0.04 10 3/uLAbove high normal0.00-0.03Estimated GFR ()April 18, 2025 10:25pmOctober 2024 10:25pm>60>=60 mL/min/1.73m 2Immature Granulocyte % (Auto)April 18, 2025 10:25pmOctober 2024 10:25pm 0.2 %0.0-0.5Estimated GFR ()May 07, 2025 6:58amOctober 2024 6:13ig85Yhgdm low normal>=60 mL/min/1.73m 2Immature Granulocyte % (Auto)May 07, 2025 6:58amOctober 2024 6:58am0.3 %0.0-0.5Estimated GFR ()May 14, 2025 1:38pmOctober 2024 1:67cf91Wadqy low normal>=60 mL/min/1.73m 2Blood Urea NitrogenNovember 2024 2:10pm May 31, 2025 2:10pm38.0 mg/dLAbove high normal7.0-18.0Immature Granulocyte % (Auto)May 31, 2025 2:10pmNov2024 2:10pm0.9 % Above high normal0.0-0.5Urine Leukocyte EsteraseNovember 2024 4:30pm May 31, 2025 4:30pmNEGATIVENEGATIVEImmature Granulocyte % (Auto)June 01, 2025 5:06amNovember 2024 5:06am1.0 %Above high normal0.0-0.5 Estimated GFR ()June 01, 2025 4:55pmNovember 2024 4:20vq61Cxwee low normal>=60 mL/min/1.73m 2Red Blood CountNovember 2024 4:55pmNovember 2024 4:55pm3.20 10 6/uLBelow low normal4.70-6.10Estimated GFR ()June 02, 2025 6:00amNovember 2024 6:00am43 Below low normal>=60 mL/min/1.73m 2Red Blood CountNov2024 6:00am June 02, 2025 6:00am3.10 10 6/uLBelow low normal4.70-6.10Estimated GFR ()June 03, 2025 5:59iq33Yulzm low normal>=60 mL/min/1.73m 2Total BilirubinNov2024 5:48am0.3 mg/dL0.2-1.0Immature Granulocyte % (Auto)June 03, 2025 5:48amNovember 2024 5:48am0.4 %0.0-0.5Estimated GFR (Non- AmericanOct2024 10:25pmOctober 2024 10:25pm>60 >=60 mL/min/1.73m 2Lymphocytes # (Auto)April 18, 2025 10:25pmOctober 2024 10:25pm1.2 10 3/uL1.2-3.8Estimated GFR (Non- AmericanOctober 2024 6:58amOctober 2024 6:54zm68Vctrv low normal>=60 mL/min/1.73m 2 Lymphocytes # (Auto)May 07, 2025 6:58amOctober 2024 6:58am1.9 10 3/uL1.2-3.8Estimated GFR (Non- AmericanOctober 2024 1:38pmOctober 2024 1:30el13Vzndn low normal>=60 mL/min/1.73m 2Calcium LevelNov2024 2:10pmAtrium Health [facility]2024 2:10pm9.2 mg/dL8.5-10.1Lymphocytes # (Auto) May 31, 2025 2:10pmMay 31, 2025 2:10pm1.0 10 3/uLBelow low normal 1.2-3.8Urine NitriteAtrium Health [facility]2024 4:30pmAtrium Health [facility]2024 4:30pmNEGATIVE NEGATIVELymphocytes # (Auto)June 01, 2025 5:06amNove2024 5:06am 1.1 10 3/uLBelow low normal1.2-3.8Estimated GFR (Non- AmericanLex[facility] 2024 4:55pmJune 01, 2025 4:56ix40Rglri low normal>=60 mL/min/1.73m 2 Red Cell Distribution WidthAtrium Health [facility]2024 4:55pmLexington Shriners Hospital 2024 4:55pm 14.7 %11.0-15.0Estimated GFR (Non- AmericanLex[facility] 2024 6:00am June 02, 2025 6:34wz30Brwhk low normal>=60 mL/min/1.73m 2Red Cell Distribution WidthLexington Shriners Hospital 2024 6:00amNove2024 6:00am14.7 % 11.0-15.0Estimated GFR (Non- AmericanLexington [facility] 2024 5:00om21Sacie low normal>=60 mL/min/1.73m 2Total ProteinAtrium Health [facility]2024 5:48am6.7 g/dL 6.4-8.2Lymphocytes # (Auto)June 03, 2025 5:48amNoveer 2024 5:48am 1.1 10 3/uLBelow low normal1.2-3.8Glucose LevelOct2024 10:25pmOctober 2024 10:27bo395 mg/dLAbove high -211Vigapspbbda (%) (Auto)April 18, 2025 10:25pmOctober 2024 10:25pm13.3 %Below low srmlym86.5-60.0Glucose LevelOctober 2024 6:58amOctober 2024 6:58am98 mg/xP91-948Fbjhsdcuyvj (%) (Auto)May 07, 2025 6:58amOctober 2024 6:58am28.5 %20.5-60.0 Glucose LevelOctober 2024 1:38pmOctober 2024 1:38pm99 mg/gG30-326 Chloride LevelNovember 2024 2:10pmNov2024 2:10pm97 mmol/LBelow low xfesmk45-547Sfqhhthuilf (%) (Auto)May 31, 2025 2:10pmNov2024 2:10pm6.7 %Below low rwiemk16.5-60.0Urine pHNovb[facility] 2024 4:30pm May 31, 2025 4:30pm5.55.0-9.0Lymphocytes (%) (Auto)June 01, 2025 5:06amNovember 2024 5:06am5.2 %Below low zbaljy66.5-60.0Glucose Level June 01, 2025 4:55pmNov2024 4:39qe957 mg/dLAbove high normal 74-106Corrected White Blood CountNov2024 4:55pmNov2024 4:55pm16.6 10 3/uLAbove high normal4.0-11.0Glucose LevelNovember 2024 6:00amNovember 2024 6:73lf026 mg/sF10-026Gvujxxrac White Blood Count June 02, 2025 6:00amNovember 2024 6:00am15.6 10 3/uLAbove high normal4.0-11.0Glucose LevelNovember 2024 5:92mm153 mg/fU54-234Yfdalkraxay (%) (Auto)June 03, 2025 5:48amNovember 2024 5:48am12.4 %Below low myvduy36.5-60.0Pot[facility]Oct[facility] 20[facility] 10:25pmOctober 2024 10:25pm 4.1 mmol/L3.5-5.1Mean Corpuscular HemoglobinOctober 2024 10:25pmOctober 2024 10:25pm32.1 pg25.9-34.0Potassium LevelOctober 2024 6:58amOctober 2024 6:58am4.2 mmol/L3.5-5.1Mean Corpuscular HemoglobinOctober 2024 6:58amOctober 2024 6:58am31.4 pg25.9-34.0Potassium LevelOctober 2024 1:38pmOctober 2024 1:38pm4.9 mmol/L3.5-5.1Carbon Dioxide LevelNovember 2024 2:10pmNovember 2024 2:10pm21.8 mmol/L21.0-32.0Mean Corpuscular HemoglobinNovember 2024 2:10pmNovember 2024 2:10pm30.3 pg25.9-34.0 Urine ProteinNovember 2024 4:30pmNovember 2024 4:30pmNEGATIVE mg/dL NEG/TRACEPotassium LevelNovember 2024 4:55pmNovember 2024 4:55pm4.1 mmol/L3.5-5.1Potassium LevelNovb[facility] 2024 6:00amNovember 2024 6:00am 4.2 mmol/L3.5-5.1Potassium LevelNovember 2024 5:48am4.0 mmol/L3.5-5.1Mean Corpuscular HemoglobinNovember 2024 5:48amNovember 2024 5:48am30.0 pg25.9-34.0Sodium LevelOctober 2024 10:25pmOctober 2024 10:37do928 mmol/LBelow lower panic [id number] CALLED TO GRETCHEN GUZMAN RN @BY Devika Valdez at 0008Mean Corpuscular Hemoglobin ConcentOctober 2024 10:25pmOctober 2024 10:25pm35.4 g/dLAbove high iealla08.9-35.2Sodium LevelOctober 2024 6:58amOctober 2024 6:22xd804 mmol/N812-675Bdnu Corpuscular Hemoglobin ConcentOctober 2024 6:58amOctober 2024 6:58am 33.8 g/dL29.9-35.2Sodium LevelOctober 2024 1:38pmOctober 2024 1:38pm 139 mmol/J971-891TtpxjjojrfEbusxitx 2024 2:10pmNovember 2024 2:10pm 1.81 mg/dLAbove high normal0.70-1.30Mean Corpuscular Hemoglobin ConcentNov2024 2:10pmNovember 2024 2:10pm33.9 g/dL29.9-35.2Urine Specific GravityNovember 2024 4:30pmNovember 2024 4:30pm1.0201.005-1.025 Sodium LevelNovember 2024 4:55pmNovember 2024 4:72oz597 mmol/LBelow low awsuon529-843Uymfyy LevelNov2024 6:00amNovember 2024 6:99dw817 mmol/LBelow low -379Wxgmuh LevelNovember 2024 5:59ud870 mmol/LBelow low ghvury843-847Wnta Corpuscular Hemoglobin [facility] 2024 5:48amNovember 2024 5:48am34.4 g/dL29.9-35.2Mean Corpuscular Volume April 18, 2025 10:25pmOctober 2024 10:25pm90.8 fL80.0-94.0Mean Corpuscular VolumeOctober 2024 6:58amOctober 2024 6:58am92.8 fL 80.0-94.0Estimated GFR ()May 31, 2025 2:10pmNov2024 2:47do18Ctkuv low normal>=60 mL/min/1.73m 2Mean Corpuscular Volume May 31, 2025 2:10pmNov2024 2:10pm89.2 fL80.0-94.0Urine UrobilinogenNov2024 4:30pmNov2024 4:30pm0.2 EU/dL0.2-1.0 Mean Corpuscular VolumeJune 03, 2025 5:48amNovember 2024 5:48am87.2 fL80.0-94.0Monocytes # (Auto)April 18, 2025 10:25pmOctober 2024 10:25pm 1.2 10 3/uLAbove high normal0.3-0.8Monocytes # (Auto)May 07, 2025 6:58am May 07, 2025 6:58am0.9 10 3/uLAbove high normal0.3-0.8Estimated GFR (Non- AmericanNov2024 2:10pmNov2024 2:52jv01Cioya low normal>=60 mL/min/1.73m 2Monocytes # (Auto)May 31, 2025 2:10pmNov2024 2:10pm1.5 10 3/uLAbove high normal0.3-0.8Monocytes # (Auto)June 01, 2025 5:06amNovember 2024 5:06am1.5 10 3/uLAbove high normal0.3-0.8 Monocytes # (Auto)June 03, 2025 5:48amNovember 2024 5:48am1.5 10 3/uLAbove high normal0.3-0.8Monocytes (%) (Auto)April 18, 2025 10:25pmOctober 2024 10:25pm13.8 %Above high normal1.7-12.0Monocytes (%) (Auto)May 07, 2025 6:58amOctober 2024 6:58am13.9 %Above high normal1.7-12.0 GlobulinNov2024 2:10pmNov2024 2:10pm5.5 g/dLMonocytes (%) (Auto)May 31, 2025 2:10pmNov2024 2:10pm9.7 %1.7-12.0 Monocytes (%) (Auto)June 01, 2025 5:06amNovember 2024 5:06am7.2 % 1.7-12.0Monocytes (%) (Auto)June 03, 2025 5:48amNovember 2024 5:48am 16.5 %Above high normal1.7-12.0Mean Platelet VolumeOct2024 10:25pm April 18, 2025 10:25pm10.4 fL9.5-13.5Mean Platelet VolumeOctober 2024 6:58amOctober 2024 6:58am10.5 fL9.5-13.5Glucose LevelNov2024 2:10pmNov2024 2:62aa290 mg/zT59-262Fkap Platelet VolumeNov2024 2:10pmNov2024 2:10pm11.5 fL9.5-13.5Mean Platelet Volume June 03, 2025 5:48amNovember 2024 5:48am11.7 fL9.5-13.5Neutrophils # (Auto)April 18, 2025 10:25pmOctober 2024 10:25pm6.4 10 3/uL1.4-6.5 Neutrophils # (Auto)May 07, 2025 6:58amOctober 2024 6:58am3.7 10 3/uL1.4-6.5Potassium LevelNov2024 2:10pmNov2024 2:10pm 4.3 mmol/L3.5-5.1Neutrophils # (Auto)May 31, 2025 2:10pmNov2024 2:10pm12.3 10 3/uLAbove high normal1.4-6.5Neutrophils # (Auto)June 01, 2025 5:06amNovember 2024 5:06am17.4 10 3/uLAbove high normal1.4-6.5 Neutrophils # (Auto)June 03, 2025 5:48amNovember 2024 5:48am6.3 10 3/uL1.4-6.5Neutrophils (%) (Auto)April 18, 2025 10:25pmOctober 2024 10:25pm72.3 %43.0-75.0Neutrophils (%) (Auto)May 07, 2025 6:58amOctober 2024 6:58am55.8 %43.0-75.0Sodium LevelMay 31, 2025 2:10pmNov2024 2:01sr925 mmol/LBelow low jbzpas418-489Nwbdulxwsrf (%) (Auto)May 31, 2025 2:10pmNov2024 2:10pm82.5 %Above high qgerxf66.0-75.0 Neutrophils (%) (Auto)June 01, 2025 5:06amNovember 2024 5:06am86.3 % Above high aarxiv22.0-75.0Neutrophils (%) (Auto)June 03, 2025 5:48am June 03, 2025 5:48am70.3 %43.0-75.0Platelet CountOct2024 10:25pm April 18, 2025 10:35kt083 10 3/fM458-906Wncwhkdx CountOct2024 6:58amOctober 2024 6:39ma766 10 3/vU850-808Ampvg BilirubinNov2024 2:10pmNov2024 2:10pm0.7 mg/dL0.2-1.0Platelet CountNov2024 2:10pmNovember 2024 2:32rw467 10 3/uL965-057Ehzolmgq Count June 03, 2025 5:48amNovember 2024 5:20pb046 10 3/qH796-881Stg Blood CountOct2024 10:25pmOctober 2024 10:25pm4.55 10 6/uLBelow low normal4.70-6.10Red Blood CountOctober 2024 6:58amOctober 2024 6:58am 3.60 10 6/uLBelow low normal4.70-6.10Total ProteinNovember 2024 2:10pm May 31, 2025 2:10pm8.2 g/dL6.4-8.2Red Blood CountNovember 2024 2:10pmNovember 2024 2:10pm3.80 10 6/uLBelow low normal4.70-6.10Red Blood CountNovember 2024 5:48amNovember 2024 5:48am2.90 10 6/uLBelow low normal4.70-6.10Red Cell Distribution WidthOctober 2024 10:25pmOctober 2024 10:25pm13.2 %11.0-15.0Red Cell Distribution WidthOctober 2024 6:58am May 07, 2025 6:58am14.5 %11.0-15.0Red Cell Distribution WidthNovember 2024 2:10pmNov2024 2:10pm14.6 %11.0-15.0Red Cell Distribution WidthNovember 2024 5:48amNovember 2024 5:48am14.6 %11.0-15.0 Corrected White Blood CountOctober 2024 10:25pmOctober 2024 10:25pm8.9 10 3/uL4.0-11.0Corrected White Blood CountOctober 2024 6:58amOctober 2024 6:58am6.6 10 3/uL4.0-11.0Corrected White Blood CountNovember 2024 2:10pmNovember 2024 2:10pm14.9 10 3/uLAbove high normal4.0-11.0Corrected White Blood CountNovember 2024 5:48amNovember 2024 5:48am9.0 10 3/uL 4.0-11.0 Vital Signs Vital Reading Result Reference Range Collection Date/Time Height 68 [in_i] May 16, 2025 8:10reWuptng90.65 kgOctgood [facility] 2024 8:34amBody Temperature 97.1 [degF]97.6-99.0Oct2024 8:34amHeart Eqby201 /eet48-449Twvaqcd 2024 8:34amRespiratory rate20 /fwj04-27Wgrbmue 2024 8:34amOxygen saturation by Pulse udyxjiqu44 %95-100Octgood [facility] 2024 8:34amBP Oqiphqoy899 mm[Hg]100-140Octgood [facility]itan [facility] 2024 8:34amBP Kwnpmkmck90 mm[Hg]60-100Octgood [facility]itan hospital 2024 8:34amBMI (Body Mass Index)25.7 kg/s4Jctrrid 2024 8:23kkZveldw54 [in_i]May 23, 2025 1:96lzWknhap13.84 kgNov2024 1:08pmHeart Rate 76 /rru49-525Psaixxmk 5th, 2025 1:08pmRespiratory rate16 /btc73-79Vgzvdgkh 5th, 2025 1:08pmOxygen saturation by Pulse oozqczuz15 %95-100Nov2024 1:08pmBP Iuxmnsrv37 mm[Hg]100-140Nov2024 1:08pmBP Oikyncfxi50 mm[Hg] 60-100Nov2024 1:08pmBMI (Body Mass Index)25.0 kg/v4Wearalwx2024 1:08pm Advance Directives Advance Directive Response Recorded Date/ Time Advance Directives No December 08 1:35pm Insurance Providers Guarantor Manas Chas Address [address] [place] [address] [address] [facility] [address]Hptpmrl Info.Home Phone: Payer Group Member ID Coverage Type Subscriber Relationship to Subscriber Effective Date Expiration Date Jordan CAMPBELL Id: [id number] [place] Id: [id number] [address] [facility] [address] Home Phone: selfMedicare [id number] [place] Id: [id number] [address] [facility] [address] Home Phone: selfAARP Medicare Advantage PFFS Id: [id number] [place] Id: [id number] [address] [facility] [address] Home Phone: self Encounters Encounter Location(s) Arrival/Admit Date Discharge/Departure Date Discharge/Departure Disposition Provider(s) Non-patient / Non-visit -[facility] O ctober 2024 11:25pm Laron Schaefer-patient / Bnd-lwacf-[place] [facility] 2024 1:30amLaron Schaefer-patient / Jjt-rvyvr-[place] [facility]October 2024 7:58amOutside ProviderNon-patient / Non-visit- [facility] 2024 2:38pmElliott Nettles NP-CDeparted Physician/Provider Office Visit-[facility] 2024 9:26amOctober 2024 10:23amDischarged to home care or self care (routine discharge)MAUDE Bernsteineparted Physician/Provider Office Visit-[facility] 2024 1:04pmMay 23, 2025 1:46pmDischarged to home care or self care (routine discharge)Laron Schneider-patient / Vxd-nzvfe-[facility] 2024 2:10pm([place]) [place]-patient / Vmt-cpypd-[facility] 2024 5:06CODY Clarkeparted Referred-[facility] 2024 12:12pmNovember 2024 12:13pmDischarged to home care or self care (routine discharge)NON STAFFDeparted Referred-[facility] 2024 12:28pmNovember 2024 12:29pmDischarged to home care or self care (routine discharge)Shon Montoya-patient / [facility] 20[facility] 6:00MAUDE Goldbergeparted Referred-[facility] 2024 11:14amNovember 2024 11:15amDischarged to home care or self care (routine discharge)NON STAFF Departed Referred-[facility] 2024 11:21amNovember 2024 11:22amDischarged to home care or self care (routine discharge)NON STAFFNon-patient / Ina-vwexa-[facility] [facility] 2024 5:48amEric Deleon , DO Recent Diagnosis Onset Date Admit Date Benign essential hypertension Unknown Oc tober 2024 9:26am Chronic HFrEF (heart failure with reduced ejection fraction) Unknown May 16, 2025 9:26am Coronary artery disease invo lving [place] coronary artery of [place] heart wi Unknown May 16, 2025 9:26am [...] ejection fraction)acuteOctober 2024 9:26amCoronary artery disease involving [place] coronary artery of [place] heart wiacuteOctober 2024 9:26amNonischemic cardiomyopathyacuteOctober 2024 9:26amPAF (paroxysmal atrial fibrillation) acuteOctober 2024 9:26amPericardial effusionacuteOctober 2024 9:26am Acute kidney injuryacuteNov2024 1:04pmAnemiaacuteNov2024 1:04pmBenign essential hypertensionacuteNov2024 1:04pmChronic kidney disease, stage 3aacuteNov2024 1:04pmGoutacuteNovember 2024 1:04pmHFrEF (heart failure with reduced ejection fraction)acuteNov2024 1:04pmHyponatremiaacuteNov2024 1:04pm Plan of Treatment Author Celina Garner [facility] 1:16wm84-zghf-gye male with a complex cardiac and renal history, recently recovering from acute kidney injury requiring CRRT, now with improved but persistently reduced kidney function and ongoing symptoms of fatigue. He remains at risk for further decompensation due to underlying heart failure and chronic kidney disease. The plan is to continue current management, monitor closely, and reassess labs and kidney imaging at next follow-up. 1. Chronic kidney disease, stage 3a (ICD-10: N18.31) - CKD is from severe LINDA 04/2025 for cardiogenic shock . Patient required CRRT but then kidney function improved - Continue current medications including Farxiga, Lasix as needed, spironolactone, and monitor for signs of volume overload or worsening renal function. - Repeat urine and blood tests at next visit. - Renal ultrasound to be performed as routine surveillance. - Educate on low-salt diet and signs of fluid overload. 2. Hypertensive nephropathy (ICD-10: I12.9) - Continue blood pressure control with current regimen. - Monitor for changes in renal function and adjust antihypertensives as needed. 3. Heart failure with reduced ejection fraction (ICD-10: I50.2) - Continue heart failure medications (metoprolol succinate, spironolactone, Lasix as needed). - Monitor for symptoms of decompensation (increased shortness of breath, edema). - Encourage participation in physical therapy and gradual increase in activity as tolerated. 4. Atrial fibrillation with Watchman device and defibrillator (ICD-10: I48.91) - Continue current cardiac rhythm management. - Continue to wear heart monitor for the remaining 10 days as instructed. 5. Hyperuricemia (ICD-10: E79.0) - Continue allopurinol 300 mg daily. - Check uric acid level at next visit. 6. Anemia, unspecified (ICD-10: D64.9) - Monitor hemoglobin, check iron, B12, and folate levels at next visit. Follow-up in 3-4 months or sooner if symptoms worsen. Patient and family educated on medication adherence, dietary restrictions, and when to seek medical attention. No medication changes at this time. Physical therapy and occupational therapy to continue as tolerated. Author Rudy Guerra [facility] 2024 9:15amRecent admission and improved. Continue medication [...] Procedures Procedure Name Ordered Date Scheduled Date Blood Culture June 02, 2025 3:50pm 2024 12:12pm Blood Culture June 03, 2025 2:01pm 2024 11:21am Blood Culture June 02, 2025 3:52pm 2024 12:28pm Blood Culture June 03, 2025 2:00pm 2024 11:14am Iron and TIBC Profile May 23, 2025 [...]
[2025-06-03] MEDS: 0.9 % SODIUM CHLORIDE 250 ML 10 ML IV (21:57)
[2025-06-03] MEDS: ATORVASTATIN CALCIUM 40 MG TABLET PO (22:03)
[2025-06-03] MEDS: ENOXAPARIN SODIUM 40 MG/0.4 ML SYRINGE SUBQ (22:03)
[2025-06-04] VITALS (20 sets, daily range): BP systolic 106–114; BP diastolic 67–78; PULSE 88–117; TEMP 36.6–36.8; O2SAT 94–97
[2025-06-04] MEDS: ALBUTEROL SULFATE 2.5 MG/3 ML VIAL NEB IH ×4 (05:08→20:21)
[2025-06-04 06:16] LABS: Alanine Aminotransferase 89 U/L (16-63); Anion Gap 13.4; Aspartate Amino Transferase 128 U/L (15-37); Blood Urea Nitrogen 29.0 mg/dL (7.0-18.0); Calcium 8.5 mg/dL (8.5-10.1); Carbon Dioxide 19.5 mmol/L (21.0-32.0); Chloride 103 mmol/L (98-107); Estimated GFR (African America >60 (>=60 mL/min/1.73m^2); Estimated GFR (Non-African Ame >60 (>=60 mL/min/1.73m^2); Glucose 104 mg/dL (74-106); INR 1.23; Partial Thromboplastin Time 32.8 sec (22.3-36.2); Potassium 3.9 mmol/L (3.5-5.1); Prothrombin Time 12.8 sec (9.0-11.6); Sodium 132 mmol/L (136-145)
[2025-06-04 06:17] LABS: Albumin Globulin Ratio 0.6; Albumin Level 2.4 g/dL (3.4-5.0); Alkaline Phosphatase 80 U/L (46-116); Globulin 4.3 g/dL; Total Protein 6.7 g/dL (6.4-8.2)
--- NOTE | 2025-06-04 07:50 | CM.NOTE ---
Rounds made with Dr. Moon, discussed plan of care with pt. Continue treatment as ordered. PT and OT will continue therapy. Updated Dr. Moon, pt approved for skilled therapy through 06/05. No discharge today, pt will discharge to [facility] for skilled therapy when medically stable.
--- NOTE | 2025-06-04 08:56 | ECG_ITS ---
[facility] Test Date: 2025-06-04 Pat Name: KRISTY VAZQUEZ Department: Room: [facility] [place] Gender: Male Intranet Specialist: : [id number] Requested By: [id number] Order Number: [id number] Reading MD: BORIS KIM M.D. Measurements Intervals [place] Rate: 92 P: 50 ME: 197 QRS: -9 QRSD: 138 T: -52 QT: 362 QTc: 450 Interpretive Statements SINUS RHYTHM INTRAVENTRICULAR CONDUCTION DELAY [130+ ms QRS DURATION] Abnormal ECG Compared to ECG 05/31/2025 13:58:43 Intraventricular conduction delay now present Sinus tachycardia no longer present Myocardial infarct finding no longer present T-wave abnormality no longer present Electronically Signed On 06-04-2025 19:00:42 EST by BORIS KIM M.D.
[2025-06-04] MEDS: CLOPIDOGREL BISULFATE 75 MG TABLET PO (09:04)
[2025-06-04] MEDS: ASCORBIC ACID 500 MG TABLET PO (09:04)
[2025-06-04] MEDS: MULTIVITAMIN TABLET 1 TAB PO (09:04)
[2025-06-04] MEDS: ASPIRIN 81 MG TABLET.DR PO (09:04)
--- NOTE | 2025-06-04 09:04 | P.PN_ITS ---
Progress Note: Subjective Subjective Interval history: Follow-up on patient. Patient is feeling fairly well. He denies any chest or abdominal pain. No confusion or disorientation. No cough or congestion. Exam Narrative Exam Narrative: [pt is awake and alert. oriented to place, time and person HEENT: [place] conjunctiva and NL buccal mucosa Neck: Supple, no tenderness Endocrine: No Thyromegaly. Vascular: No JVD or carotid bruit. Lymphatic: No cervical lymphadenopathy. Chest: CTA no DTP. Heart RRR, no extra sound or murmur. Abd: Soft, no tenderness, no rebound and no rigidity. Increase abd girth therefore clinically I could not exclude the possibility of intra abd mass or organomegaly. LE: No cyanosis or clubbing, no varices or edema. Neuro: A A O. Nl speech, comprehension and attention. Nl and symetrical motor and tone examination through out. []] Constitutional Vital Signs, click to edit/add: Last Vital Signs Temp 98.3 F 06/04/25 08:00 Pulse 89 06/04/25 08:00 Resp 16 06/04/25 05:08 BP 106/71 06/04/25 08:00 Pulse Ox 95 06/04/25 08:00 O2 Del Method Room Air 06/04/25 08:00 Progress Note: Objective Labs Labs: [facility] 06/04/25 05:05 Sodium 132 L Potassium 3.9 Chloride 103 Carbon Dioxide 19.5 L BUN 29.0 H Creatinine 1.10 Glucose 104 Calcium 8.5 Liver Function 06/04/25 Range/Units 05:05 Total Bilirubin 0.4 (0.2-1.0) mg/dL Direct Bilirubin 0.1 (0.0-0.2) mg/dL AST 128 H (15-37) U/L ALT 89 H (16-63) U/L Alkaline Phosphatase 80 (46-116) U/L Albumin 2.4 L (3.4-5.0) g/dL Progress Note: A&P Assessment and Plan (1) Bacteremia due to Staphylococcus: (2) LINDA (acute kidney injury): (3) Generalized weakness: (4) Acute metabolic encephalopathy: (5) Poor appetite: (6) History of CHF (congestive heart failure): (7) Pericardial effusion: (8) Dehydration: (9) PVC (premature ventricular contraction): (10) Post ICU syndrome: (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 LINDA Resolved Likely hemodynamically mediated in the setting of acute sepsis and bacteremia. Cardiomyopathy Patient is in a euvolemic state Continue Toprol. Reintroduce diuretics, MRA and SGLT 1 when appropriate Patient was not on ARNI prior to admission. Elevated liver enzyme Could be related to sepsis Normal bilirubin Could be related to statin. Hold Lipitor Monitor LFTs. Ultrasound of the liver in a.m. Anemia, no evidence of acute blood loss. Hemoglobin drop could be related to aggressive hydration of the last 48 hours. Patient will likely require to have anemia workup to be done in the outpatient setting to be handled by PCP in collaboration with other needed outpatient providers. This may include but not limited to EGD, colonoscopy, referral to see hematology and other needed age-appropriate cancer screening. Chronic, subacute medical conditions not listed above, abnormal labs and imaging, incidental findings seen on labs and or imaging. These would need to be addressed. Could be addressed later on or in the outpatient setting by PCP collaboration with other needed outpatient providers when time and condition are appropriate.
[2025-06-04] MEDS: METOPROLOL SUCCINATE 25 MG TAB.ER.24H PO (09:06)
[2025-06-04] MEDS: L. ACIDOPHILUS/L.BULGARICUS 1 PACKET GRAN.PACK PO ×2 (09:07→21:19)
[2025-06-04 09:16] LABS: Iron 32.0 ug/dL (65.0-175.0); Percent Iron Saturation 23.9 %; Total Iron Binding Capacity 134.0 ug/dL (250.0-450.0)
--- NOTE | 2025-06-04 10:15 | CM.NOTE ---
Dr. Moon was tiger txt the susceptibility for blood culture report.
--- NOTE | 2025-06-04 10:16 | CM.NOTE ---
2nd Important Message From Medicare discussed with pt, pt denies any questions or concerns.
--- NOTE | 2025-06-04 10:19 | SWNOTE1 ---
NICO faxed updates to Loyd at the [facility]. Updates included PT from Wednesday and today, recent vitals, labs, and physician notes from the weekend and today. NICO advised [facility] of no discharge today.
[2025-06-04] MEDS: BUDESONIDE 0.5 MG/2 ML AMPULE NEB IH ×2 (10:24→20:21)
[2025-06-04 10:28] LABS: Ferritin 904.0 ng/mL (26.0-388.0)
[2025-06-04] MEDS: CEFAZOLIN SODIUM/DEXTROSE,ISO 2 GM/50 ML PIGGYBACK IV ×2 (10:30→17:07)
--- NOTE | 2025-06-04 11:11 | CM.NOTE ---
JACQUE spoke with Dr. Moon regarding [facility] acute rehab calling for pt information. Dr. Deleon had contacted acute rehab over the weekend for discharge planning. Dr. Moon spoke with this am and plan is to go to [facility] for skilled therapy at discharge. Updated SW
--- NOTE | 2025-06-04 11:11 | CM.NOTE ---
Astrid Sandoval called from [facility] inpatient rehab to follow up on a request for transfer to inpatient rehab from Dr. Deleon. Per Dr. Moon the family does not want to pursue an inpatient rehab admission at this time and would like to discharge to [facility] [place] when he is medically ready for discharge.
--- NOTE | 2025-06-04 11:16 | PM.EN ---
Event Note Event Note: Repeat blood culture on 06/02 also came back positive for Staphylococcus lugdunensis I discussed this case with the infectious diseases specialist Dr. Barger. He recommended MASON rule out endocarditis and/or pacemaker lead infection. I will consult with [facility] group to discuss this further.
--- NOTE | 2025-06-04 12:49 | P.EN_ITS ---
Event Note Event Note: I discussed his case and the persistent bacteremia with his on the phone and also at the bedside. I also discussed his case with his stepdaughter on the phone for about 30 minutes plus. I reviewed his [facility] record. It looks like patient had right elbow infection about 3 weeks ago which had resolved completely. Elbow infection could have been the source of staph bacteremia that is now potentially causing him to have endocarditis and/or infection of the pacemaker/AICD lead and/or Watchman device. At this time, I could not find any other potential source of infection. As per Dr. Barger recommendation is to have a MASON. I discussed this case with the [facility] cardiology group Dr. Denney. She is in agreement for patient to be transferred to [facility] for MASON and also for bacteremia evaluation by ID team I discussed this further with his who is in agreement to proceed.
--- NOTE | 2025-06-04 13:10 | CM.NOTE ---
Dr. Moon contacted about need to transfer pt to [facility] for MASON for bacteremia r/o vegetation (endocarditis). Contacted transfer line to initiate transfer. Faxed face sheet, labs & progress note to [phone]
--- NOTE | 2025-06-04 19:00 | P.EN_ITS ---
Event Note Event Note: [facility] when a bed opens up
[2025-06-04] MEDS: ENOXAPARIN SODIUM 40 MG/0.4 ML SYRINGE SUBQ (21:19)
--- NOTE | 2025-06-04 23:19 | PC.NURSE ---
superior arrived to transport patient to [facility]. RN called report to Liza UHANG at [facility]. Pt stated he called his to update her on transfer and gave her the room number.
--- OUTSIDE RECORDS SUMMARY | 2025-06-05 00:25 | XMS_ITS | Encounter Summary ---
Author Organization [facility] Address [address] [place] [address] Care Team Providers Care Revenue Cycle Manager Name Role Phone Rudy King MD Primary Care Provider [phone] Reason for Visit * Auth/Cert (Routine)SpecialtyDiagnoses / ProceduresReferred By ContactReferred To Contact Diagnoses Bacteremia Bacteremia Procedures NO CODED SERVICE Benedict Pascual MD [address] [place] [address] Phone: tel: fax: [facility] [address] [place] [address] Phone: tel: fax: Referral IDStatusReasonStart DateExpiration DateVisits RequestedVisits [id number] Encounter Details DateTypeDepartmentCare Team (Latest Contact Info)Kywlmlhsfzb90/18/2025 12:25 AM EST - PresentHospital Encounter [facility] [address] [place] [address] Benedict Pascual MD [address] [place] [address] Lauren Topete MD [address] [place] [address] Bacteremia (Primary Dx); Valvular endocarditis Social History Tobacco UseTypesPacks/DayYears UsedDateSmoking Tobacco: FormerCigarettes Smokeless Tobacco: NeverAlcohol UseStandard Drinks/AwfrMczcmswtFrx80 (1 standard drink = 0.6 oz pure alcohol)occasionalHumiliation, Afraid, Rape, and Kick questionnaireAnswerDate RecordedWithin the last year, have you been afraid of your partner or ex-partner?No06/05/2025Emotionally AbusedNot on file06/05/2025 Physically AbusedNot on file06/05/2025Sexually AbusedNot on file06/05/2025 Overall Financial Resource Strain (CARDIA)AnswerDate RecordedHow hard is it for you to pay for the very basics like food, housing, medical care, and heating?Not hard at all06/05/2025HC UtilitiesAnswerDate RecordedIn the past 12 months has the [employer], gas, oil, or water [employer] threatened to shut off services in your home?No06/05/2025TransportationAnswerDate RecordedIn the past 12 months, has lack of transportation kept you from medical appointments or from getting medications?No06/05/2025Lack of Transportation (Non-Medical)Not on file 06/05/2025Housing Stability Vital SignAnswerDate RecordedIn the last 12 months, was there a time when you were not able to pay the mortgage or rent on time?No 06/05/2025Number of Times Moved in the Last YearNot on file06/05/2025t any time in the past 12 months, were you homeless or living in a custodial (including now)? No06/05/2025Hunger Vital SignAnswerDate RecordedWithin the past 12 months, you worried that your food would run out before you got the money to buymore.Never true06/05/2025Ran Out of Food in the Last YearNot on file06/05/2025Sex and Gender InformationValueDate RecordedSex Assigned at NfxhhKoxy07/06/2025 8:51 AM EDTLegal OdiLzmh2101/14/2022 10:53 PM EDTGender MkpcsrgmMaxt37/06/2025 8:51 AM EDT Sexual OrientationHeterosexual or Rvqmdytb66/06/2025 8:51 AM EDTdocumented as of this encounter Last Filed Vital Signs Vital SignReadingTime TakenCommentsBlood Auqyvppk349/7506/06/2025 11:45 AM EST Doyvn8149/ 11:45 AM ELUBjmdcaktsmt61.4 ??C (97.5 ??F)06/06/2025 11:45 AM ESTRespiratory Kotb732106/06/2025 11:45 AM ESTOxygen Jkyzsqfhpa566%06/06/2025 11:45 AM ESTInhaled Oxygen Concentration--Hcunhk71.8 kg (158 lb 6.4 oz) 06/06/2025 4:45 AM NVBHxyehl023.7 cm (5' 8 )06/05/2025 6:45 AM ESTBody Mass Index24.0806/05/2025 6:45 AM ESTdocumented in this encounter Functional Status * QuestionAnswerDate of JccrbnaykpUvfwekVT580/7506/06/2025 11:45 AM Kelly Fernandez RNPulse8806/06/2025 11:45 AM Kelly Fernandez RNHeart Rate Source Dywbekn8206/06/2025 11:45 AM Kelly Fernandez RNPatient QmmapnudUpbfq14/19/2025 11:45 AM Kelly Fernandez RN * Whit Fall RiskQuestionAnswerDate of AssessmentAuthorHistory of Falling, Immediate or Within 3 Xbomjp4535 7:56 AM Kelly Fernandez RNSecondary Psswgkazy4818/19/2025 7:56 AM Kelly Fernandez RNAmbulatory Dse3519 7:56 AM Kelly Fernandez RNIntravenous Therapy/Heparin Pkcq9349 7:56 AM Kelly Fernandez RNGait/Ipzvkxxkvsbi6797/19/2025 7:56 AM Kelly Fernandez RNMental Kgrqgm424/19/2025 7:56 AM Kelly Fernandez RNMorse Fall Risk Score85 06/06/2025 7:56 AM Kelly Fernandez RN * Christiano ScaleQuestionAnswerDate of AssessmentAuthorBraden No Risk Interventions Continue to assess patient according to level of care06/05/2025 9:10 PM EST Riya Natarajan, ZECHARIAHensory Cpqhcbkumym700/19/2025 7:56 AM Kelly Fernandez RN Hluuuiyb141/19/2025 7:56 AM Kelly Fernandez, JSUoztwqqk245/19/2025 7:56 AM Kelly Anthony RNMobility3108/06/2024 7:56 AM Kelly Fernandez RNNutrition3 06/06/2025 7:56 AM Kelly Fernandez, RNFriction and Ssgjc68108/06/2024 7:56 AM Kelly Fernandez RNBraden Scale Wujic191706/06/2025 7:56 AM Kelly Fernandez RN * High Fall Risk InterventionsQuestionAnswerDate of AssessmentAuthorHigh Fall Risk VyzcqiisrgzlaTcmhyscg23/19/2025 7:56 AM Kelly Fernandez RNAdditional Fall Risk InterventionsProvided cfyeseeoqph37/19/2025 7:56 AM Kelly Fernandez RN * Constantine Fall Risk InterventionsQuestionAnswerDate of AssessmentAuthor Constantine Fall Risk GwxddipomfxyfIzzqmloh40/19/2025 7:56 AM Kelly Fernandez RN * Pain Assessment TimerQuestionAnswerDate of AssessmentAuthorRestart Pain Assessment XzkfkXvu99/19/2025 11:45 AM Kelly Fernandez RN * Sepsis Model ScoresQuestionAnswerDate of AssessmentAuthorEarly Detection of Sepsis Score3.34108/06/2024 12:31 PM ESTChronicles, BatchqEarly Detection of Sepsis Score3.9108/06/2024 12:31 PM ESTChronicles, Batchq * Pain AssessmentQuestionAnswerDate of AssessmentAuthorPain Interventions Zrspqodj32/19/2025 11:45 AM Kelly Fernandez RNPatient's Stated Pain GoalNo pain06/06/2025 11:45 AM Kelly Fernandez RNPain AssessmentNo/denies pain 06/06/2025 11:45 AM Kelly Fernandez RN * Deterioration Index ScoreQuestionAnswerDate of AssessmentAuthorDeterioration Index Score45.41108/06/2024 12:31 PM ESTChronicles, Batchq * Head, Ears, Eyes, Nose, and Throat (HEENT)QuestionAnswerDate of Assessment AuthorHead, Ears, Eyes, Nose, and Throat (WDL)X108/06/2024 7:56 AM Kelly Fernandez RNR EyeMildly impaired ykjtbt0806/06/2025 7:56 AM Kelly Fernandez RNL EyeMildly impaired qfxtty0906/06/2025 7:56 AM Kelly Fernandez RNR EarIntact 06/05/2025 12:47 AM Cintia Aden RNL EzbLozohh77/18/2025 12:47 AM Cintia Weston RNTeethMissing teeth06/06/2025 7:56 AM Kelly Fernandez RNHead and VjstGarolkylfcr55/18/2025 12:47 AM Cintia Aden RNLips Symmetrical;Intact;Moist06/05/2025 12:47 AM Cintia Aden RN * QuestionAnswerDate of AssessmentAuthorMAP (mmHg)8306/06/2025 11:45 AM Kelly Anthony RN * Short Portable Mental StatusQuestionAnswerDate of AssessmentAuthorWhat are the date, month, year? 7:56 AM Kelly Fernandez RNWhat is the day of the week? 7:56 AM Kelly Fernandez RNWhat is the name of this place? 7:56 AM Kelly Fernandez RNWhat is your phone number?0 06/06/2025 7:56 AM Kelly Fernandez RNHow old are you? 7:56 AM Kelly Anthony RNWhen were you born? 7:56 AM Kelly Fernandez RNWho is the current president? 7:56 AM Kelly Fernandez RNWho was the president before him? 7:56 AM Kelly Fernandez RNWhat was your mother's maiden name? 12:47 AM Cintia Aden RNCan you count backward from 20 by 3s? 7:56 AM Kelly Fernandez RNShort Portable Mental Bhmpm47308/05/2024 12:47 AM Cintia Aden RN * Fall Risk LevelQuestionAnswerDate of AssessmentAuthorMobility zoneLow (Green Zone)06/06/2025 7:56 AM Kelly Fernandez RNMorse fall risk zoneHigh (Red Zone) 06/06/2025 7:56 AM Kelly Fernandez RNMental status questionaire zoneLow (Green Zone)06/06/2025 7:56 AM Kelly Fernandez RN * Skin Assessment Sign offQuestionAnswerDate of AssessmentAuthorDual Sign-off - Admission/TransferKBam Eaton RN06/05/2025 12:47 AM Cintia Aden RNAny new wounds identified on admission/transfer?No06/05/2025 12:47 AM Cintia Aden RN * QuestionAnswerDate of SjlwzkhjctOwhewkYcR687760/19/2025 11:45 AM Kelly Fernandez RN * QuestionAnswerDate of CmrcbrzyrqIjzwexHJ340/7506/06/2025 11:45 AM Kelly Fernandez RNTemp97. 11:45 AM Kelly Fernandez RNTemp srcTemporal 06/06/2025 11:45 AM Kelly Fernandez, FHNelav4662/19/2025 11:45 AM Kelly Fernandez SBNvwz5552/19/2025 11:45 AM Kelly Fernandez RNHeart Rate SourceMonitor 06/06/2025 11:45 AM Kelly Fernandez RNBP LocationLeft arm06/06/2025 11:45 AM Kelly Fernandez RNBP JwghaxOnlhoiptt21/19/2025 11:45 AM Kelly Fernandez RN Cardiac TnekakSFE10/19/2025 11:45 AM Kelly Fernandez RNEctopyPremature ventricular vjvzcyqiywdf63/19/2025 11:45 AM Kelly Fernandez RNEctopy HolailtngYfqwndci77/19/2025 11:45 AM Kelly Fernandez RNPulse rate from Plethysmogram (bpm)8706/06/2025 11:45 AM Kelly Fernandez RNPatient Position Lying06/06/2025 11:45 AM Kelly Fernandez RN * QuestionAnswerDate of AssessmentAuthorLevel of PlmeositzcfkbYndwn83/19/2025 7:56 AM Kelly Fernandez RNOrientation LevelOriented X4108/06/2024 7:56 AM Kelly Anthony RNCognitionFollows pocpbrea59/19/2025 7:56 AM Kelly Fernandez RNSpeechClear;Delayed auxcwsfee16/19/2025 7:56 AM Kelly Fernandez RNL Pupil Size (mm)Other (Comment)06/05/2025 5:00 PM Kelly ArredondoR Pupil Size (mm)4 06/05/2025 5:00 PM Kelly ArredondoSwallowAble to swallow solids and liquids without kooptitpdj49/18/2025 12:47 AM Cintia Aden RNR Hand Grasp Fvtpztoc34/19/2025 7:56 AM Kelly Fernandez RNL Hand WnwdgDmnzhmwd44/19/2025 7:56 AM Kelly Fernandez RNR Foot FamsiacshnwaWtavybdf84/19/2025 7:56 AM Kelly Anthony RNL Foot PacurrowgosyAtfkvxdo97/19/2025 7:56 AM Kelly Fernandez, SALR Foot Plantar IpirdipBkrsqrbv40/19/2025 7:56 AM Kelly Fernandez, DIAMOND Foot Plantar DuucpxrXbxjxktg96/19/2025 7:56 AM Kelly Fernandez RNNeuro Symptoms Fatigue;Yvajsdzvw18/19/2025 7:56 AM Kelly Fernandez RNRelieved byRest;Music 06/06/2025 7:56 AM Kelly Fernandez RNHand Grasp/Motor Function/Sensation AssessmentGrasp;Dorsiflexion;Plantar jyiyimz6706/05/2025 12:47 AM Cintia Aden, RNFacial QynwhmikNcjebdrqafs10/18/2025 12:47 AM Cintia Aden RN * QuestionAnswerDate of AssessmentAuthorTelemetry Monitor OfvigpJl04/19/2025 7:56 AM Kelly Fernandez RNCardiac QaeltyycWfew29/19/2025 7:56 AM Kelly Fernandez RNHeart SoundsOther (Comment)06/05/2025 5:00 PM Kelly Arredondo * QuestionAnswerDate of AssessmentAuthorPacemaker RwuyMkhdswopq21/19/2025 7:56 AM Kelly Fernandez RN * GastrointestinalQuestionAnswerDate of AssessmentAuthorPassing FlatusYes 06/05/2025 12:47 AM Cintia Aden RNAbdominal TendernessNo guarding;Svdcdjtut06/18/2025 12:47 AM Cintia Aden RNBowel Sounds (All Quadrants)Ksxcahmhgv28/18/2025 5:00 PM Kelly ArredondoGastrointestinal (WDL)WDL 06/06/2025 7:56 AM Kelly Fernandez RNAbdomen InspectionSoft;Nondistended 06/05/2025 12:47 AM Cintia Aden RNBowel SoundsAll tryabpgrs94/18/2025 12:47 AM Cintia Aden RN * Peripheral VascularQuestionAnswerDate of AssessmentAuthorPeripheral Vascular (WDL)WDL108/06/2024 7:56 AM Kelly Fernandez RNCapillary RefillLess than/equal to 2 seconds (All extremities)06/05/2025 12:47 AM Cintia Aden, RNPulses Right radial;Left radial;Right pedal;Left pedal108/05/2024 9:10 PM Riya Garcia RNCyanosisNone108/05/2024 12:47 AM Cintia Aden RN * RUE Neurovascular AssessmentQuestionAnswerDate of AssessmentAuthorRight Radial Pulse+ 7:56 AM Kelly Fernandez RN * LUE Neurovascular AssessmentQuestionAnswerDate of AssessmentAuthorLeft Radial Pulse+ 7:56 AM Kelly Fernandez RN * RLE Neurovascular AssessmentQuestionAnswerDate of AssessmentAuthorRight Posterior Tibial Pulse+ 7:56 AM Kelly Fernandez RNRight Pedal Pulse+ 7:56 AM Kelly Fernandez RN * LLE Neurovascular AssessmentQuestionAnswerDate of AssessmentAuthorLeft Posterior Tibial Pulse+ 7:56 AM Kelly Fernandez RNLeft Pedal Pulse + 7:56 AM Kelly Fernandez RN * MusculoskeletalQuestionAnswerDate of AssessmentAuthorMusculoskeletal (WDL)WDL 06/05/2025 9:10 PM Riya Garcia, SAL * PsychosocialQuestionAnswerDate of AssessmentAuthorPsychosocial (WDL)L 06/06/2025 7:56 AM Kelly Fernandez RN * Sherman Fall RiskQuestionAnswerDate of AssessmentAuthorHistory of Falling, Immediate or Within 3 Uhfxsa9029 7:56 AM Kelly Fernandez RNSecondary Dgoxlrrhc6612/19/2025 7:56 AM Kelly Fernandez RNAmbulatory Mhf660708/06/2024 7:56 AM Kelly Fernandez RNIntravenous Therapy/Heparin Acbc6604 7:56 AM Kelly Fernandez RNGait/Pcppmzctkrtc2095/19/2025 7:56 AM Kelly Fernandez RNMental Fvkjig041/19/2025 7:56 AM Kelly Fernandez RNMorse Fall Risk Score85 06/06/2025 7:56 AM Kelly Fernandez RN * Christiano ScaleQuestionAnswerDate of AssessmentAuthorBraden No Risk Interventions Continue to assess patient according to level of care06/05/2025 9:10 PM Riya Camp, RNSensory Olzepeoazia786/19/2025 7:56 AM Kelly Fernandez RN Fglnupkb256/19/2025 7:56 AM Kelly Fernandez, XVVfdpdiog645/19/2025 7:56 AM Kelly Anthony RNMobility3108/06/2024 7:56 AM Kelly Fernandez RNNutrition3 06/06/2025 7:56 AM Kelly Fernandez, RNFriction and Dflnl40008/06/2024 7:56 AM Kelly Fernandez RNBraden Scale Paamq978306/06/2025 7:56 AM Kelly Fernandez RN * Charting TypeQuestionAnswerDate of AssessmentAuthorCharting TypeShift vvzifkdacb03/19/2025 7:56 AM Kelly Fernandez RN * Values/BeliefsQuestionAnswerDate of AssessmentAuthorCultural Requests During Wjczcvrobgkwqgtibzj36/18/2025 12:33 AM Susy Vail RNSpiritual Requests During Ipklosasczottzorfot27/18/2025 12:33 AM Susy Vail RN * GenitourinaryQuestionAnswerDate of AssessmentAuthorGenitourinary (WDL)WDL 06/06/2025 7:56 AM Kelly Fernandez RN * Patient MonitoringQuestionAnswerDate of AssessmentAuthorFrequency of Checks Twice per hour, loibting96/19/2025 11:04 AM Kelly Fernandez RN * Safe EnvironmentQuestionAnswerDate of AssessmentAuthorChair AlarmsOff 06/06/2025 7:56 AM Kelly Fernandez RNArm Bands OnID;Fall06/06/2025 7:56 AM Kelly Fernandez RNSide Rails/Bed SafetyOther (Comment)06/06/2025 7:56 AM Kelly Anthony RNBed CsnapiJp80/18/2025 9:10 PM Riya Garcia RNThe Patient's Environment is ZbiwVnc41/19/2025 7:56 AM Kelly Fernandez RN * High Fall Risk InterventionsQuestionAnswerDate of AssessmentAuthorHigh Fall Risk JztldqwuvbccfMmurakuf14/19/2025 7:56 AM Kelly Fernandez RNAdditional Fall Risk InterventionsProvided pluedewgxjp23/19/2025 7:56 AM Kelly Fernandez RN * MobilityQuestionAnswerDate of EsbagysznrWealhaSrmanizgkd17/19/2025 11:04 AM Kelly Fernandez RNActivity PerformedWalked to bathroom;Resting in bed 06/06/2025 11:04 AM Kelly Fernandez RNDistance Ambulated (ft)24108/06/2024 7:59 AM Kelly Fernandez RNAmbulation ResponseTolerated fairly well06/06/2025 11:04 AM Kelly Fernandez RNAssistive DeviceFront wheel migopl3306/06/2025 11:04 AM Kelly Fernandez RNRepositionedTurns self;Semi Callahan's;Pillow support 06/06/2025 11:04 AM Kelly Fernandez RNLevel of AssistanceStandby assist, set- up cues, supervision of patient - no hands on06/06/2025 11:04 AM Kelly Fernandez RNHead of Bed ElevatedSelf omvousuzp81/19/2025 11:04 AM Kelly Fernandez RNHeels/FeetFoot of bed xiwlyjeo40/19/2025 9:30 AM Kelly Fernandez RN Range of MotionActive;All ibggkvjpdsq40/19/2025 9:30 AM Kelly Fernandez RN Anti-Embolism DevicesBilateral;Sequential compression devices, below knee 06/06/2025 7:59 AM Kelly Fernandez RNAnti-Embolism FdfxxevfqpkzIzq18/19/2025 7:59 AM Kelly Fernandez RNPatient's mobility zoneZone 11:04 AM Kelly Fernandez RNPositioning FrequencyAble to turn self06/06/2025 11:04 AM Kelly Fernandez RN * HygieneQuestionAnswerDate of AssessmentAuthorLinen changeTotal linen change 06/06/2025 11:04 AM Kelly Fernandez RNSkin CareOther (Comment)06/06/2025 11:04 AM Kelly Fernandez RNHygieneBathed;Back rub;Ted care;Tfzhnl0806/06/2025 11:04 AM Kelly Fernandez RNOral CareTeeth axihebm4806/06/2025 7:59 AM Kelly Fernandez RNLevel of AssistanceModerate lwkkjx6806/06/2025 11:04 AM Kelly Fernandez RNIs Patient Total Care?No06/06/2025 11:04 AM Kelly Fernandez RN Incontinence Protective DevicesChanged;Absorbent ckvivhwfbkaj00/19/2025 11:04 AM Kelly Fernandez RN * PrecautionsQuestionAnswerDate of JlfgxumqiaGuvmblNxszsloynzcVjsh22/19/2025 7:56 AM Kelly Fernandez RN * Family/Significant Other CommunicationQuestionAnswerDate of AssessmentAuthor Family/Significant Other VqlopkLwthudhn03/19/2025 7:56 AM Kelly Fernandez RN * Comfort and Environment InterventionsQuestionAnswerDate of AssessmentAuthor Warm MspttgkSbvybqn01/19/2025 11:47 AM Kelly Fernandez RNComfort Repositioned;Gown changed;Bed pad changed;Draw sheet changed;Partial linen change;Lotion (Comment)06/06/2025 11:04 AM Kelly Fernandez RNAdditional Comfort/Environmental InterventionsWarm myzrscx6306/06/2025 11:47 AM Kelly Fernandez RN * ADL ScreeningQuestionAnswerDate of AssessmentAuthorDo you snore or wake up gasping for air?No06/05/2025 12:32 AM Susy Vail RNCan you bring in your CPAP/BiPAP from home?N/A108/05/2024 12:32 AM Susy Vail RNPatient's Vision Adequate to Safely Complete Daily GnjczphqbvIlf48/18/2025 12:32 AM Susy Vail RNPatient's Judgment Adequate to Safely Complete Daily ActivitiesYes 06/05/2025 12:32 AM Susy Vail RNPatient's Memory Adequate to Safely Complete Daily JeiceaqegjHnv87/18/2025 12:32 AM Susy Vail RNPatient Able to Express Needs/XfwhiqoHzu27/18/2025 12:32 AM Susy Vail RNDressing Rwkdklkqegb86/18/2025 12:32 AM Susy Vail RNNBAkmmbienYtkcjqzgajh14/18/2025 12:32 AM ESTDoe, Susy, OIEanubycRocyucqplbz60/18/2025 12:32 AM Susy Vail WIHwpxdowWtesvrqrvss65/18/2025 12:32 AM Susy Vail RNToileting Dhefkinwytb06/18/2025 12:32 AM Susy Vail RNIn/Out BedIndependent 06/05/2025 12:32 AM Susy Vail RNWalks in KefjMkveksowkru10/18/2025 12:32 AM Susy Vail RNWeakness of BtmpScue24/18/2025 12:32 AM Susy Vail RNWeakness of Arms/CkmvyFxdq17/18/2025 12:32 AM Susy Vail RNHearing - Right EoqMgchpfszkd95/18/2025 12:32 AM Susy Vail RNHearing - Left Ear Xrwgvdklmk13/18/2025 12:32 AM Susy Vail RNWhich is your dominant hand? Right06/05/2025 12:32 AM Susy Vail RN * ConsultsQuestionAnswerDate of AssessmentAuthorSpiritual Care Consult NeededNo 06/05/2025 12:33 AM Susy Vail RNSocial Services Consult NeededNo 06/05/2025 12:33 AM Susy Vail RN * Therapy ConsultsQuestionAnswerDate of AssessmentAuthorPT Evaluation Needed2 06/05/2025 12:32 AM Susy Vail RNOT Evaluation Hxopee510/18/2025 12:32 AM Susy Vail RNSLP Evaluation Uhncem188/18/2025 12:32 AM Susy Vail RN * Assistive DevicesQuestionAnswerDate of AssessmentAuthorAssistive DevicesNone 06/05/2025 12:32 AM Susy Vail RN * Provider NotificationQuestionAnswerDate of AssessmentAuthorProvider Role Duinbrkesya00/18/2025 2:10 AM Cintia Aden RNCommunication Comments Informed the MD that the patient went tachy and was shivering, after putting the patient on warm blanket and adjusted the room temp. the patient stopped shivering. Vital signs were normal, BS-96. Thepatient stated that he had 1 time the same episode last week at [place].06/05/2025 2:10 AM Cintia Aden RNProvider UvvhRksqrmwet84/18/2025 2:10 AM Cintia Aden RNMethod of CommunicationFace to face06/05/2025 2:10 AM Cintia Aden RNReason for EebrpmyhxaxtoZfmzidk66/18/2025 2:10 AM Cintia Aden RNResponseNo new iuvcsp6106/05/2025 2:10 AM Cintia Aden RNNotification Pwgi156039/18/2025 2:10 AM Cintia Aden RN * Constantine Fall Risk InterventionsQuestionAnswerDate of AssessmentAuthor Constantine Fall Risk GotqbyifmmwuaXddnzajn01/19/2025 7:56 AM Kelly Fernandez RN * Suicidal IdeationQuestionAnswerDate of AssessmentAuthor1. Wish to be (Lifetime)No06/05/2025 12:34 AM Susy Vail RN2. Non-Specific Active Suicidal Thoughts (Lifetime)No06/05/2025 12:34 AM Susy Vail RN * Rosangela Coma ScaleQuestionAnswerDate of AssessmentAuthorBest Eye Response Humrnxazuag91/19/2025 7:56 AM Kelly Fernandez RNBest Verbal ResponseOriented 06/06/2025 7:56 AM Kelly Fernandez RNBest Motor ResponseFollows commands 06/06/2025 7:56 AM Kelly Fernandez RNGlasgow Coma Scale Lxjzl9968/19/2025 7:56 AM Kelly Fernandez RN * Pain AssessmentQuestionAnswerDate of AssessmentAuthorPain Interventions Tsumeywi38/19/2025 11:45 AM Kelly Fernandez RNPatient's Stated Pain GoalNo pain06/06/2025 11:45 AM Kelly Fernandez RNPain AssessmentNo/denies pain 06/06/2025 11:45 AM Kelly Fernandez RN * NutritionQuestionAnswerDate of AssessmentAuthorDiet TypeHeart healthy 06/06/2025 7:59 AM Kelly Fernandez, RNFeedingAble to feed self06/06/2025 7:59 AM Kelly Fernandez, HXImpgqoasOkgw41/19/2025 7:59 AM Kelly Fernandez RN * IntegumentaryQuestionAnswerDate of AssessmentAuthorSkin ColorAppropriate for race;Pale06/06/2025 7:56 AM Kelly Fernandez RNSkin Condition/TempWarm;Dry 06/06/2025 7:56 AM Kelly Fernandez RNSkin UciygwjboItxnrk72/19/2025 7:56 AM Kelly Fernandez RNSkin TurgorEpidermis thin with loss of subcutaneous tissue 06/06/2025 7:56 AM Kelly Fernandez RNIntegumentary (WDL)X108/06/2024 7:56 AM Kelly Fernandez RN * QuestionAnswerDate of AssessmentAuthorUrinary LyblrpcuxWkcdnojk72/19/2025 11:00 AM Kelly Fernandez RNUrine ColorYellow/straw06/06/2025 11:00 AM Kelly Anthony RNUrine OwjntidfcrRmhym06/19/2025 11:00 AM Kelly Fernandez RN Urine OdorNo odor06/06/2025 7:56 AM Kelly Fernandez RNUrinary IncontinenceNo 06/06/2025 7:56 AM Kelly Fernandez RN * QuestionAnswerDate of AssessmentAuthorLast Lerw1268364/19/2025 11:00 AM Kelly Anthony RNStool TvjjoUnucm75/19/2025 11:00 AM Kelly Fernandez RNStool DgknqfopobZger48/19/2025 11:00 AM Kelly Fernandez RNBowel IncontinenceNo 06/06/2025 11:00 AM Kelly Fernandez RN * QuestionAnswerDate of AssessmentAuthorPatient Goal for Treatmentdischarge 06/06/2025 4:00 AM Riya Garcia RN * Modified AldreteQuestionAnswerDate of PduotwdhgmUkccwfYrkkqejq785/18/2025 10:59 AM Angelique Naranjo RNRespiration2108/05/2024 10:59 AM Angelique Naranjo RNCirculation 10:59 AM Angelique Naranjo RNConsciousness 10:59 AM Angelique Naranjo RNOxygen Lldscprcbz001/18/2025 10:59 AM Angelique Naranjo RNModified Clary Ksywr7656 10:59 AM Angelique Echeverria RN * Modified Malnutrition Screening Tool (MST)QuestionAnswerDate of Assessment AuthorHave you recently lost weight without trying? 12:33 AM Susy Maravilla RNHave you been eating poorly because of a decreased appetite?0 06/05/2025 12:33 AM Susy Vail RNOn home tube feeding or TPN? 12:33 AM Susy Vail RNDoes patient have a stage 2-4 pressure ulcer?0 06/05/2025 12:33 AM Susy Vail RN * Weight Loss ScoreAnswerDate of XpctismhvtHcqkkg670/18/2025 12:33 AM Susy Vail RN * Malnutrition ScoreAnswerDate of CiqjtdkxbcWfalfc841/18/2025 12:33 AM Susy Vail RN documented as of this encounter Mental Status * West Agitation Sedation ScaleQuestionAnswerEntry DateAuthorRichmond Agitation Sedation Scale (RASS) 9:57 AM Angelique Naranjo RN * [place] Coma ScaleQuestionAnswerEntry DateAuthorBest Eye ResponseSpontaneous 06/06/2025 7:56 AM Kelly Fernandez RNBe Verbal YtlzyiffOewetoqd81/19/2025 7:56 AM Kelly Fernandez RNBest Motor ResponseFollows tkmygchm42/19/2025 7:56 AM Kelly Fernandez RNGlasgow Coma Scale Kfjea2008/19/2025 7:56 AM Kelly Fernandez RN * Modified AldreteQuestionAnswerEntry HrsiFiotqrRlnlzsfm835/18/2025 10:59 AM Angelique Echeverria RNRespiration 10:59 AM Angelique Naranjo RN Ndpvamqjvxx807/18/2025 10:59 AM Angelique Naranjo RNConsciousness2 06/05/2025 10:59 AM Angelique Naranjo RNOxygen Bjywreazdg142/18/2025 10:59 AM Angelique Naranjo RNModified Clary Otrqn0444 10:59 AM Angelique Echeverria RN documented in this encounter Progress Notes * Lauren Topete MD - 06/06/2025 11:52 AM EST Images from the original note were not included. [facility] Medicine Daily Progress Note - 06/06/2025 11:52 AM; Room: [address] [place] [address] Admission: 06/05/2025 12:25 AM; Length of stay: 1 days THE HOSPITALIST TEAM PREFERS TO USE [facility] FOR NON-URGENT COMMUNICATION 7AM- 7PM. IF I DO NOT RESPOND WITHIN 20 MINUTES OR URGENT MATTERS, PLEASE CALL THROUGH THE DYE WORKER. FROM 7PM-7AM, PLEASE PAGE [phone](COVR). Code Status: Full Code Barriers to Discharge: Infective endocarditis, bacteremia, infected ICD and Watchman Expected Discharge Date: ? Discharge Destination: ? Overview Patient is seen for evaluation and management of staph bacteremia. 69-year-old male with complicated past medical history including recent admission to [facility] in May 12 due to cardiogenic shock and pericardial effusion status post pericardiocentesis, HFrEF with anEF of 30 to 35% status post ICD, paroxysmal atrial fibrillation status post Watchman in January 2025. P elena was transferred from an outside hospital due to bacteremia, blood cultures were found to be positive for staph lugdenesis. Upon admission to [facility] had [place] confirming vegetations involving Watchman device and RA lead of the ICD. It showed mobile masses on the ICD lead and on the atrial aspect of the Watchman device. Cardiology and cardiothoracic surgery consulted Subjective Seen and evaluated bedside, at the bedside, patient reporting no new symptoms, no acute shortness of breath or chest pain, fair appetite, positive bowel movement. Physical Exam Visit Vitals BP 109/75 (BP Location: Left arm, Patient Position: Lying) Pulse 88 Temp 36.4 ??C (97.5 ??F) (Temporal) Resp 24 Intake/Output Summary (Last 24 hours) at 06/06/2025 1152 Last data filed at 06/06/2025 0857 Gross per 24 hour Intake 390 ml Output -- Net 390 ml Physical Exam Eyes: Pupils: Pupils are equal, round, and reactive to light. Cardiovascular: Rate and Rhythm: Normal rate and regular rhythm. Pulmonary: Effort: Pulmonary effort is normal. Breath sounds: Normal breath sounds. Abdominal: General: Bowel sounds are normal. Palpations: Abdomen is soft. Neurological: Mental Status: He is alert and oriented to person, place, and time. Psychiatric: Mood and Affect: Mood normal. Estimated body mass index is 24.08 kg/m?? as calculated from the following: Height as of this encounter: 1.727 m (5' 8 ). Weight as of this encounter: 71.8 kg (158 lb 6.4 oz). Assessment and Plan Assessment & Plan Bacteremia Sepsis due to Staphylococcus (CMS/HCC) Acute bacterial endocarditis Infection involving implantable cardioverter-defibrillator (ICD) Blood cultures continues to be positive for Staphylococcus lugdunensis Continue Ancef ID and Cardiology consult -MASON 06/05/2025: Two small mobile masses are present on the atrial side of the Watchman device. Twomobile echodensities is also seen in the right atrium extending into the right ventricle attached to the ICD lead, and probably the tricuspid valve. - Cardiothoracic surgery requesting diagnostic left heart cath, discussed with cardiology, they will discuss the case with the mine wirer. Cardiomyopathy (CMS/HCC) Heart failure with reduced ejection fraction (CMS/HCC) ICD (implantable cardioverter-defibrillator) in place Most recent echo showed EF of 20% Patient's Entresto, spironolactone, and Farxiga were held at [facility] due to hypotension and LINDA Metoprolol was being given Presently, patient appears euvolemic 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 -Continue aspirin, Plavix on hold. Lipitor held due to elevated LFTs Benign essential hypertension -Continue with metoprolol. Holding Entresto/spironolactone/Farxiga due to borderline hypotension. Paroxysmal atrial fibrillation (CMS/HCC) status post Watchman continue Toprol Pericardial effusion -Diagnosed on recent admission. Not evident on his MASON done on this admission. Status post pericardiocentesis Right heart cath was not suggestive of for tamponade patient was previously discharged on colchicine Hyponatremia monitor sodium level Fluid restrict Hypomagnesemia replete magnesium Elevated LFTs LFTs were elevated above the hospital Statin was held Chronic anemia Monitor hemoglobin Moderate protein-calorie malnutrition - Clinical dietitian consulted, recommendations as below Nutrition Screen: Clinical Indicators of Malnutrition: unintentional weight loss, loss of subcutaneous fat with locations identified, loss of muscle mass with location identified Malnutrition Assessment (Completed by RD) Moderate (non-severe) PCM: Chronic Illness: severity of body fat loss (mild depletion), other (comment) (>7.5% weight loss in 3 months) Treatment & Intervention Plan: continue current diet, monitor intakes and adjust recommendations as needed, RD to change supplement Nutrition Goals: intake > 75% meals, intake > 75% supplements, wt maintenance, compliance w/MNT, daily weights, maitain visceral protein Malnutrition Attestation: I attest to the following: I have personally seen this patient. The patient has been assessed for malnutrition as documentation above, and based on the criteria set by the Academy of Nutrition and Dietetics and the [place] [employer] of Enteral and Parenteral Nutrition, meets the diagnosis for malnutrition. A care plan has been established for this patient. VTE Prophylaxis: Heparin subcutaneous Scheduled Meds allopurinol, 300 mg, oral, Daily aspirin, 81 mg, oral, Daily with breakfast atorvastatin, 40 mg, oral, Nightly ceFAZolin, 2 g, intravenous, q8h [Held by provider] clopidogrel, 75 mg, oral, Daily colchicine, 0.6 mg, oral, Daily metoprolol succinate XL, 12.5 mg, oral, Once Daily mometasone-formoterol, 1 puff, inhalation, BID Pertinent Investigations Hematology: Results from last 7 days Lab Units 06/06/25 0745 06/05/25 0138 WBC AUTO 10*3/uL 11.12* 9.66 HEMOGLOBIN g/dL 10.2* 9.1* HEMATOCRIT % 28.0* 27.4* MCV fL 87.8 90.4 PLATELETS AUTO 10*3/uL 196 184 INR -- 1.22* Chemistry: Results from last 7 days Lab Units 06/06/25 0745 06/05/25 0138 SODIUM mmol/L 131* 127* POTASSIUM mmol/L 4.2 4.2 CHLORIDE mmol/L 103 101 CO2 mmol/L 20* 19* BUN mg/dL 22 27* CREATININE mg/dL 1.00 1.00 GLUCOSE mg/dL 95 102* MAGNESIUM mg/dL -- 1.5* CALCIUM mg/dL 8.4* 8.5* Results from last 7 days Lab Units 06/05/25 0138 AST U/L 96* ALT U/L 48 ALK PHOS U/L 81 BILIRUBIN TOTAL mg/dL 0.5 Results from last 7 days Lab Units 06/05/25 0157 POCT GLUCOSE mg/dL 96 Historical Values: (Includes values prior to this admission) Lab Results Component Value Date CORTISOL 11.2 04/20/2025 HDL 29 04/24/2025 LDL 69 04/24/2025 Lab Results Component Value Date IRON 33 (L) 04/29/2025 TIBC 214 (L) 04/29/2025 Imaging Transesophageal echo (MASON) [facility] Heart Station [address] [phone] (fax) Transesophageal Echocardiogram-[facility] Name: KRISTY DOHERTY Study Date: 06/05/2025 10:06 AM B/P: 102 mmHg/73 mmHg HR: Date of : 1955 Location: [facility] Height: 68 in. Age: 69 year(s) Patient Room: 3102 Weight: 159 lb. Gender: Male Patient Status: InPt BSA: 1.85 m2 Indication: Bactermia, S/P 35 mm Watchman device FLX, H/O Pericardiocentesis, ICD Examination: MASON (Transesophageal Echo / CFI) Image Quality: Good Patient Consent: Informed, written consent was obtained for the procedure Exam Location: A MASON was performed in the [facility] without complications Anesthesia Pharyngeal anesthesia with viscous Lidocaine Conclusions Left Ventricle: The left ventricle appears enlarged. Global left ventricular systolic function is severely reduced. The EF is 20 % visually. Right Ventricle: The right ventricle appears normal in size. Right ventricular systolic function appears normal. Left Atrium: The left atrium appears enlarged. Left Atrium Appendage: There are two mobile oscillating echodense massess attached to the atrial aspect of the watchman device. No ted-device leak is identified. IAS: Normal appearing atrial septum. Right Atrium: Two mobile masses noted in the RA extending to the RV, attached to the ICD lead and probable to the tricuspid valve. . Mitral Valve: Mild mitral regurgitation. Aortic Valve: Moderate aortic valve regurgitation. Tricuspid Valve: A mobile echodensity found in the right atrium, extending into the right ventricle, attached to the ICD lead and probably to tricuspid valve . Moderate tricuspid regurgitation. Aorta: Mild atherosclerotic plaque is seen in the aorta. Pericardium: No pericardial effusion. Overall Conclusions: Two small mobile masses are present on the atrial side of the Watchman device. Two mobile echodensities is also seen in the right atrium extending into the right ventricle attached to the ICD lead, and probably the tricuspid valve. Medications Date Time Name Route Form Dose Units Ordered By Given By Comment 06/05/2025 11:01 AM Midazolam HCL (Versed) 3 milligrams 06/05/2025 11:01 AM Fentanyl (Opiates) 50 micrograms Measurements Left Ventricle Label Value Normal Value LVOTd 2.3 cm (19cm - 21cm) LVEF visual 20 % Valvular Assessment LVOT 0.7 - 1.1 m/sec Aortic Valve 1.0 - 1.7 m/sec Mitral Valve 0.6 - 1.3 m/sec Tricuspid Valve 0.3 - 0.7 m/sec Pulmonic Valve 0.6 - 0.9 m/sec Regurgitation Mod Mild Moderate Trivial Stenosis No No No No Findings Left Ventricle: The left ventricle appears enlarged. Global left ventricular systolic function is severely reduced. The EF is 20 % visually. Right Ventricle: The right ventricle appears normal in size. Right ventricular systolic function appears normal. A pacemaker wire is seen in the right atrium and right ventricle. Left Atrium: The left atrium appears enlarged. Left Atrium Appendage: There are two mobile oscillating echodense massess attached to the atrial aspect of the watchman device. No ted-device leak is identified. IAS: Normal appearing atrial septum. Right Atrium: Two mobile masses noted in the RA extending to the RV, attached to the ICD lead and probable to the tricuspid valve. . The right atrium appears enlarged. Mitral Valve: The mitral valve is normal in mobility and thickness. Mild mitral regurgitation. No mitral valve stenosis. Aortic Valve: Aortic valve appears normal. Moderate aortic valve regurgitation. No aortic valve stenosis. The aortic valve is trileaflet. No vegetation is identified in the aortic valve. Tricuspid Valve: A mobile echodensity found in the right atrium, extending into the right ventricle, attached to the ICD lead and probably to tricuspid valve . Moderate tricuspid regurgitation. No tricuspid valve stenosis. Pulmonic Valve: Normal pulmonary valve. Trivial pulmonary regurgitation. No pulmonic valve stenosis. No vegetation is identified in the pulmonic valve. Aorta: Mild atherosclerotic plaque is seen in the aorta. Pericardium: No pericardial effusion. Procedure Staff Reading Group: [facility] Leathersmith: Bryanna Cazares RDCS Ordering Physician: Bebo Dominguez MD Discharge Planning Expected Discharge Disposition: Home-Health Care Svc (06) Signed Lauren Topete MD [facility] 06/06/2025 11:52 AM * Aldo Javier MD - 06/06/2025 10:56 AM EST Images from the original note were not included. Infectious Diseases - Inpatient daily Progress Note - Patient name: Kristy Doherty Patient Today's Date and Time: 06/06/2025, 10:56 AM Admission Date: 06/05/2025 Assessment/Plan Impression: Staph lugdenesis bacteremia with vegetation growth on Watchman CIED and watchman vegetations cardiomyopathy (EF 30-35%), status post ICD paroxysmal A-fib status post Watchman 02/06/2025 CAD Asthma HTN Recent admission 05/04/2025 cardiogenic shock and pericardial effusion status post pericardiocentesis Recommendations: Continue ancef Repeat blood culture every other day As the teaching physician, I have personally performed or re-performed the history of present illness, physical exam and medical decision-making activities of the encounter and verified the medical student's documentation. I made pertinent changes as necessary to ensure accurate documentation. There may be additional comments below. Additional Comments: Repeat blood cx positive Vegetation on devices Plan for C, meanwhile continue with cefazolin, naficillin has high volume brianna with someone with HFrEF Repeat blood EOD, ordered for tomorrow Monitor Cr,CBC while on beta lactams Aldo Javier MD Infectious diseases Subjective Interval history: Patient feeling fine today. Reports he has had diarrhea for several days since transfer from last hospital. Once daily, no abdominal pain. Will follow. Going for cardiac cath tomorrow. Objective Physical Examination: BP (!) 109/91 Pulse 101 Temp 36.3 ??C (97.3 ??F) (Temporal) Resp 11 Ht 1.727 m (5' 8 ) Wt71.8 kg (158 lb 6.4 oz) SpO2 98% BMI 24.08 kg/m?? Temperature Range: Temp: 36.3 ??C (97.3 ??F) Temp Av.3 ??C (97.4 ??F) Min: 36.3 ??C (97.3 ??F)Max: 36.4 ??C (97.5 ??F) General Appearance: Awake, alert, and in no apparent distress, nontoxic Eyes: Sclera anicteric; conjunctivae ENT: Oropharynx clear, without erythema, exudate, no thrush. Neck: Supple, without lymphadenopathy. Pulmonary/Chest: Clear to auscultation, without wheezes, rales, no rhonchi Cardiovascular: Regular rate and rhythm without murmurs Abdomen: soft, non-tender, nondistended, no palpable masses no organomegaly; normal bowel sounds Extremities: No cyanosis, edema, no joint effusions. Neurologic: Alert and oriented x 3, nonfocal; strength and sensation grossly normal Skin: No rash no lesions. Laboratory data: I have independently reviewed the following labs: Results from last 7 days Lab Units 06/06/25 0745 06/05/25 0138 WBC AUTO 10*3/uL 11.12* 9.66 HEMOGLOBIN g/dL 10.2* 9.1* HEMATOCRIT % 28.0* 27.4* MCV fL 87.8 90.4 PLATELETS AUTO 10*3/uL 196 184 NEUTROS ABS 10*3/uL -- 7.17 LYMPHS ABSOLUTE 10*3/uL -- 1.34 MONOS ABSOLUTE 10*3/uL -- 1.04* EOS ABSOLUTE 10*3/uL -- 0.03 BASOS ABSOLUTE 10*3/uL -- 0.02 Results from last 7 days Lab Units 06/06/25 0745 06/05/25 0138 POTASSIUM mmol/L 4.2 4.2 CHLORIDE mmol/L 103 101 CO2 mmol/L 20* 19* BUN mg/dL 22 27* CREATININE mg/dL 1.00 1.00 GLUCOSE mg/dL 95 102* CALCIUM mg/dL 8.4* 8.5* ALK PHOS U/L -- 81 ALT U/L -- 48 AST U/L -- 96* No lab exists for component: PROCALCITON No lab exists for component: TURBIDITY , SPECIFICGRA , PHURINE , LEUKOCYTE , PROTEIN , BLOODHGB , RBCELLS , RENALEPITH No lab exists for component: TOXIGENICC Imaging Studies: I have reviewed myself the following imaging studies performed in the past 3 days: No X-ray results found for the past [address] results found for the past 3 days No MRI results found for the past 3 days Cultures: Results for orders placed or performed during the hospital encounter of 06/05/25 Blood culture, peripheral #2 Specimen: Blood, Venous Result Value Ref Range Blood Culture Culture in progress Gram Stain Result (A) Aerobic Bottle Yields Gram positive cocci in clusters Blood culture, peripheral #1 Specimen: Blood, Venous Result Value Ref Range Blood Culture Culture in progress Gram Stain Result (A) Aerobic Bottle Yields Gram positive cocci in clusters Medications: allopurinol, 300 mg, oral, Daily aspirin, 81 mg, oral, Daily with breakfast atorvastatin, 40 mg, oral, Nightly ceFAZolin, 2 g, intravenous, q8h [Held by provider] clopidogrel, 75 mg, oral, Daily colchicine, 0.6 mg, oral, Daily metoprolol succinate XL, 12.5 mg, oral, Once Daily mometasone-formoterol, 1 puff, inhalation, BID This progress note was completed using a voice securities attorney system. Every effort was made to ensure accuracy; however, inadvertent computerized securities attorney errors may be present. Thank you for allowing us to participate in the care of this patient. Our consultation addresses complex antimicrobial therapy counseling and treatment Devika Taylor, MS4 UTP Infectious Diseases Please contact us via [employer] during business hours. If no response in 15 min, call / page through the buncher operator * Balta Morgan CNP - 06/06/2025 8:36 AM EST Images from the original note were not included. Cardiothoracic Surgery Progress Note 06/06/2025 Room: [address] [place] [address] Kristy Doherty is a 69 y.o. male with a past medical history of cardiomyopathy, status post ICD, paroxysmal A-fib status post Watchman, CAD, asthma, hypertension, recent admission at [facility] for cardiogenic shock and pericardial effusion status post pericardiocentesis presenting with generalized weakness and fatigue. Patient reports weight loss, chills, SOB with exertion, decreased oral intake and appetite. Blood cultures at [place] positive for staph lugdunensis. Patient reports symptoms began last Wednesday, and progressed until he was no longer able to stand and walk on which prompted the admission [facility]. Denies chest pain, fever, rash, and edema. Transferred to [facility] for MASON to rule out endocarditis. Preliminary discussion of MASON reports vegetationon tricuspid valve - waiting on final read. TTE 04/29/2025: Left Ventricle: Global left ventricular systolic function is severely reduced. The EF is 20 % visually. Diffuse global hypokinesis. Right Ventricle: Mildly reduced right ventricular systolic function. Doppler studies suggest mildly elevated right sided pressures. Left Atrium: The left atrium appears enlarged. Mitral Valve: Mild mitral regurgitation. Aortic Valve: Mild aortic valveregurgitation. Tricuspid Valve: Moderate tricuspid regurgitation. Interval: Seen bedside with nursing and present. Denies chest pain or SOB. Denies fevers or chills. Tolerating diet. Objective Patient Vitals for the past 24 hrs: BP Temp Temp src Pulse Resp SpO2 Weight 06/06/25 0756 93/77 36.3 ??C (97.3 ??F) Temporal (!) 117 11 98 % -- 06/06/25 0445 -- -- -- -- -- -- 71.8 kg (158 lb 6.4 oz) 06/06/25 0400 106/63 -- -- 95 23 96 % -- 06/06/25 0000 96/68 -- -- 102 18 96 % -- 06/05/252013 104/63 -- -- 103 26 97 % -- 06/05/25 1600 104/74 -- -- 91 24 96 % -- 06/05/25 1128 103/75 36.4 ??C (97.5 ??F) Temporal 83 19 98 % -- 06/05/25 1058 106/80 -- -- 82 18 96 % -- 06/05/25 1051 109/77 -- -- 84 21 97 % -- 06/05/25 1048 108/78 -- -- 82 18 97 % -- 06/05/25 1045 102/73 -- -- 84 18 96 % -- 06/05/25 1042 102/72 -- -- 84 17 96 % -- 06/05/25 1039 108/70 -- -- 83 16 96 % -- 06/05/25 1036 100/72 -- -- 83 16 96 % -- 06/05/25 1033 102/69 -- -- 83 13 95 % -- 06/05/25 1030 103/73 -- -- 85 16 96 % -- 06/05/25 1027 103/70 -- -- 86 14 96 % -- 06/05/25 1024 105/71 -- -- 87 14 96 % -- 06/05/25 1021 96/72 -- -- 87 21 96 % -- 06/05/25 1018 107/76 -- -- 87 14 96 % -- 06/05/25 1015 107/77 -- -- 91 22 97 % -- 06/05/25 1014 -- -- -- -- -- 99 % -- 06/05/25 1014 104/78 -- -- 89 18 97 % -- 06/05/25 1012 117/81 -- -- 88 18 97 % -- 06/05/25 0952 103/76 -- -- 92 20 96 % -- 06/05/25 0949 -- -- -- -- -- 95 % -- 06/05/25 0949 103/76 -- -- 87 19 96 % -- Physical Exam Vitals reviewed. Constitutional: General: He is not in acute distress. Appearance: Normal appearance. He is normal weight. He is not ill-appearing. HENT: Head: Normocephalic and atraumatic. Mouth/Throat: Mouth: Mucous membranes are moist. Pharynx: Oropharynx is clear. Eyes: Extraocular Movements: Extraocular movements intact. Conjunctiva/sclera: Conjunctivae normal. Pupils: Pupils are equal, round, and reactive to light. Neck: Vascular: No carotid bruit. Cardiovascular: Rate and Rhythm: Normal rate and regular rhythm. Pulses: Normal pulses. Heart sounds: Murmur heard. Pulmonary: Effort: Pulmonary effort is normal. No respiratory distress. Breath sounds: Normal breath sounds. Abdominal: General: Abdomen is flat. There is no distension. Palpations: Abdomen is soft. Musculoskeletal: General: Normal range of motion. Cervical back: Normal range of motion. Right lower leg: No edema. Left lower leg: No edema. Skin: General: Skin is warm and dry. Capillary Refill: Capillary refill takes less than 2 seconds. Coloration: Skin is not pale. Neurological: General: No focal deficit present. Mental Status: He is alert and oriented to person, place, and time. Mental status is at baseline. Psychiatric: Mood and Affect: Mood normal. Behavior: Behavior normal. Thought Content: Thought content normal. Judgment: Judgment normal. Lab Results Component Value Date NA 127 (L) 06/05/2025 K 4.2 06/05/2025 CL 101 06/05/2025 ANIONGAP 11 06/05/2025 BUN 27 (H) 06/05/2025 CREATININE 1.00 06/05/2025 CALCIUM 8.5 (L) 06/05/2025 MG 1.5 (L) 06/05/2025 PHOS 3.1 05/04/2025 Lab Results Component Value Date BILITOT 0.5 06/05/2025 ALKPHOS 81 06/05/2025 AST 96 (H) 06/05/2025 ALT 48 06/05/2025 PROT 6.9 06/05/2025 ALBUMIN 3.2 (L) 06/05/2025 Lab Results Component Value Date WBC 9.66 06/05/2025 RBC 3.03 (L) 06/05/2025 HGB 9.1 (L) 06/05/2025 HCT 27.4 (L) 06/05/2025 PLT 184 06/05/2025 NRBC 0.0 06/05/2025 Transesophageal echo (MASON) Result Date: 06/05/2025 [facility] Heart Station [address] [place] [address] [phone] (fax) Transesophageal Echocardiogram-[facility] Name: KRISTY DOHERTY Study Date: 06/05/2025 10:06 AM B/P: 102 mmHg/73 mmHg HR: Date of : 1955 Location: [facility] Height: 68 in. Age: 69 year(s) Patient Room: 3102 Weight: 159 lb. Gender: Male Patient Status: InPt BSA: 1.85 m2 Indication: Bactermia, S/P 35 mm Watchman device FLX, H/O Pericardiocentesis, ICD Examination: MASON (Transesophageal Echo / CFI) Image Quality: Good Patient Consent: Informed, written consent was obtained for the procedure Exam Location: A MASON was performed in the [facility] without complications Anesthesia Pharyngeal anesthesia with viscous Lidocaine Conclusions Left Ventricle: The left ventricle appears enlarged. Global left ventricular systolic function is severely reduced. The EF is 20 % visually. Right Ventricle: The right ventricle appears normal in size. Right ventricular systolic function appears normal. Left Atrium: The left atrium appears enlarged. Left AtriumAppendage: There are two mobile oscillating echodense massess attached to the atrial aspect of the watchman device. No ted-device leak is identified. IAS: Normal appearing atrial septum. Right Atrium: Two mobile masses noted in the RA extending to the RV, attached to the ICD lead and probable to th e tricuspid valve. . Mitral Valve: Mild mitral regurgitation. Aortic Valve: Moderate aortic valve regurgitation. Tricuspid Valve: A mobile echodensity found in the right atrium, extending into the right ventricle, attached to the ICD lead and probably to tricuspid valve . Moderate tricuspid regurgitation. Aorta: Mild atherosclerotic plaque is seen in the aorta. Pericardium: No pericardial effusion. Overall Conclusions: Two small mobile masses are present on the atrial side of the Watchman device. Two mobile echodensities is also seen in the right atrium extending into the right ventricle attached to the ICD lead, and probably the tricuspid valve. Medications Date Time Name Route Form Dose Units Ordered By Given By Comment 06/05/2025 11:01 AM Midazolam HCL (Versed) 3 milligrams 06/05/2025 11:01 AM Fentanyl (Opiates) 50 micrograms Measurements Left Ventricle Label Value Normal Value LVOTd2.3 cm (19cm - 21cm) LVEF visual 20 % Valvular Assessment LVOT 0.7 - 1.1 m/sec Aortic Valve 1.0 - 1.7 m/sec Mitral Valve 0.6 - 1.3 m/sec Tricuspid Valve 0.3 - 0.7 m/sec Pulmonic Valve 0.6 - 0.9 m/sec Regurgitation Mod Mild Moderate Trivial Stenosis No No No No Findings Left Ventricle: The left ventricle appears enlarged. Global left ventricular systolic function is severely reduced. The EF is 20 % visually. Right Ventricle: The right ventricle appears normal in size. Right ventricular systolic function appears normal. A pacemaker wire is seen in the right atrium and right ventricle. Left Atrium: The left atrium appears enlarged. Left Atrium Appendage: There are two mobile oscillating echodense massess attached to the atrial aspect of the watchman device. No ted-device leak is identified.IAS: Normal appearing atrial septum. Right Atrium: Two mobile masses noted in the RA extending to the RV, attached to the ICD lead and probable to the tricuspid valve. . The right atrium appears enlarged. Mitral Valve: The mitral valve is normal in mobility and thickness. Mild mitral regurgitation.No mitral valve stenosis. Aortic Valve: Aortic valve appears normal. Moderate aortic valve regurgitation. No aortic valve stenosis. The aortic valve is trileaflet. No vegetation is identified in the aortic valve. Tricuspid Valve: A mobile echodensity found in the right atrium, extending into the right ventricle, attached to the ICD lead and probably to tricuspid valve . Moderate tricuspid regurgitation. No tricuspid valve stenosis. Pulmonic Valve: Normal pulmonary valve. Trivial pulmonary regurg itation. No pulmonic valve stenosis. No vegetation is identified in the pulmonic valve. Aorta: Mildatherosclerotic plaque is seen in the aorta. Pericardium: No pericardial effusion. Procedure Staff Reading Group: [facility] Leathersmith: Bryanna Cazares RDCS Ordering Physician: Bebo Dominguez MD Transthoracic echo (TTE) limited Result Date: 04/30/2025 1 [facility] Heart Station [address] [place] [address] [phone] (fax) Echocardiogram-[facility] Name: KRISTY DOHERTY Study Date: 04/30/2025 07:02 AM B/P: 121 mmHg/100 mmHg HR: 87 bpm Date of : 1955 Location:[facility] Height: 68 in. Age: 69 [...] with the fellow Procedure Staff Reading Group: [facility] Referring Physician: RUDY KING Leathersmith: June Brumfield RDCS,RVT, RN, BSN Ordering Physician: Wil Sotomayor MD Wall Motion Scores -1 - hyperkinesia, 0 - not evaluated, 1 - normal, 2 - hypokinesia, 3 - akinesia, 4 - dyskinesia Limited Echo (TTE) w/wo Limited Doppler, Color Flow, Imaging Agent, Strain, 3D, Bubble Study Result Date: 04/23/2025 1 1 [facility] Heart Station [address] [place] [address] [phone] (fax) Echocardiogram-[facility] Name: KRISTY DOHERTY Study Date: 04/23/2025 07:26 AM B/P: 90 mmHg/74 mmHg HR: 111 bpm Date of : 1955 Location: [facility] Height: 68 in. Age: 69 [...] minimal pericardial effusion. Procedure Staff Reading Group: [facility] Referring Physician: RUDY KING Leathersmith: June Brumfield RDCS, RVT, RN, BSN Ordering Physician: FANI SANCHEZ Wall Motion Scores -1 - hyperkinesia, 0 - not evaluated, 1 - normal, 2 - hypokinesia, 3 - akinesia, 4 - dyskinesia Transthoracic echo (TTE) limited Result Date: 04/20/2025 1 1 [facility] Heart Station [address] [place] [address] [phone] (fax) Echocardiogram-[facility] Name: KRISTY DOHERTY Study Date: 04/20/2025 01:28 PM B/P: 83 mmHg/58 mmHg HR: 96 bpm Date of : 1955 Location: [facility] Height: 68 in. Age: 69 [...] No pericardial effusion. Procedure Staff Reading Group: [facility] Referring Physician:RUDY KING Leathersmith: June Brumfield RDCS, RVT, RN, BSN Ordering Physician: VENU SAMANIEGO Wall Motion Scores -1 - hyperkinesia, 0 - not evaluated, 1 - normal, 2 - hypokinesia, 3 - akinesia, 4 - dyskinesia Transthoracic echo (TTE) limited Result Date: 04/19/2025 1 1 [facility] Heart Station [address] [place] [address]. [place] [address] [phone] (fax) Echocardiogram-[facility] Name: KRISTY DOHERTY Study Date: 04/19/2025 02:13 PM B/P: / HR: Date of : 1955 Location: [facility] Height: 68 in. Age: 69 year(s) Patient Room: 3183 Weight: 182 lb. Gender: Male Patient Status: InPt BSA: 1.96 m2 Indication: pericardialeffusion, h/o 35mm Watchman FLX Examination: Limited Echo Image Quality: Fair Findings Pericardium: Moderate pericardial effusion baseline. Post pericardiocentesis there is minimal pericardial effusion. Procedure Staff Reading Group: [facility] Referring Physician: RUDY KING Leathersmith: SAMI Starr, RDCS Ordering Physician: VENU SAMANIEGO Complete Echo (TTE) w/wo Imaging Agent, Strain, 3D, Bubble Study Result Date: 04/19/2025 1 1 [facility] Heart Station [address] [place] [address] [phone] (fax) Echocardiogram-[facility] Name: KRISTY DOHERTY Study Date: 04/19/2025 12:46 PM B/P: 97 mmHg/71 mmHg HR: Date of : 1955 Location: [facility] Height: 68 in. Age: 69 [...] early tamponade physiology. Procedure Staff Reading Group: [facility] Leathersmith: Bryanna Cazares RDCS Ordering Physician: HAKAN Canchola signed by MD Mitesh Webb on 04/19/2025 at 01:44 PM Limited Transthoracic Echo (TTE) w/wo Contrast, Color Flow, Imaging Agent, Strain, 3D, Bubble Study Result Date: 02/07/2025 1 1 [facility] Heart Station [address] [place] [address] [phone] (fax) Echocardiogram-[facility] Name: KRISTY DOHERTY Study Date: 02/07/2025 08:02 AM B/P: 118 mmHg/85 mmHg HR: 63 bpm Date of : 1955 Location: [facility] Height: 68 in. Age: 69 [...] No pericardial effusion. Procedure Staff Reading Group: [facility] Referring Physician: RUDY KING Leathersmith: June Shoots, BS, RDCS Ordering Physician: CHUCK FUNEZ Transesophageal echo (MASON) Result Date: 12/01/2024 1 [facility] Heart Station [address] [place] [address] [phone] (fax) Transesophageal Echocardiogram-[facility] Name: KRISTY DOHERTY Study Date: 12/01/2024 12:00 PM B/P: 134 mmHg/87 mmHg HR: 80 bpm Date of : 1955 Location: [facility] Height: 68 in. Age: 69 year(s) Patient Room: Weight: 194 lb. Gender: Male PatientStatus: OutPt BSA: 2.02 m2 Indication: Atrial Fibrillation, Pre-Watchman Examination: MASON, Color flow imaging Image Quality: Excellent Patient Consent: Informed, written consent was obtained for the procedure Exam Location: A MASON was performed in the Shell Trim Operator without complications Anesthesia Pharyngeal anesthesia with viscous [...] examination with the fellow Procedure Staff ReadingGroup: [facility] Referring Physician: RUDY KING Leathersmith: DORIAN Walker Ordering Physician: Hay William MD Assessment/Plan Principal Problem: Bacteremia Active Problems: Hypomagnesemia 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 BC 06/06 pending. WBC normal. Denies fevers or chills. Appreciate ID input. -Patient will need cardiac catherization prior to surgery for tricuspid valve endocarditis. -CT Surgery will continue to follow closely. To reach Cardiothoracic Surgery Inpatient from 8am-4pm call Ascom #[phone]. Only use [employer] chat for general questions. If unable to reach Ascom Number call hospital buncher operator for Cardiothoracic Provider Appliance Line Assembler. Cardiothoracic Surgery outpatient Office Number [phone]. Cardiothoracic Surgery outpatient . * Chely Epstein PharmD - 06/06/2025 6:38 AM EST Images from the original note were not included. Antimicrobial Stewardship Positive Blood Culture Documentation Pharmacist notified of positive blood culture. 2 of 4 blood culture sets drawn on 06/05 @[facility] growing gram-positive cocci in clusters identified as S lugdunensis The organism does not have identified resistance markers S lugdunensis Contacted Dr Avendano at 000. Received response at 0000 Assessment: patient transferred from [facility] with S lugdunesis bacteremia already on cefazolin. ID is following. I called [facility] and received sensitivity report from their culture on 06/01 (no resistance, oxacillin S) Plan: Continue with cefazolin Follow ID recommendation Recommendation discussed with provider was based on Pharmacy Procedure IPP 183: Positive Blood Culture Procedure Chely Epstein PharmD 06/06/25 * Griselda Bonilla RD - 06/05/2025 3:48 PM EST Adult Nutrition Assessment: Name: Kristy Doherty Date: 1955 Date of Visit: 06/05/25 Admission Dx: Bacteremia [R78.81] Reason for assessment: high risk Information obtained from: patient, family, and medical record Medical History[1] Current Medications: allopurinol, 300 mg, oral, Daily aspirin, 81 mg, oral, Daily with breakfast atorvastatin, 40 mg, oral, Nightly ceFAZolin, 2 g, intravenous, q8h [Held by provider] clopidogrel, 75 mg, oral, Daily colchicine, 0.6 mg, oral, Daily magnesium oxide, 400 mg, oral, q8h metoprolol succinate XL, 12.5 mg, oral, Once Daily mometasone-formoterol, 1 puff, inhalation, BID Labs: 0 Lab Value Date/Time POCGLU 96 06/05/2025 0157 BUN 27 (H) 06/05/2025137 CREATININE 1.00 06/05/2025137 NA 127 (L) 06/05/2025137 K 4.2 06/05/2025137 PHOS 3.1 05/04/2025 0418 MG 1.5 (L) 06/05/2025137 HGB 9.1 (L) 06/05/2025137 AMMONIA 56 04/29/2025 0238 WBC 9.66 06/05/2025137 CHOL 98 (L) 04/24/2025 0407 HDL 29 04/24/2025 0407 Allergies: Allergies[2] Nutrition Problems: Swallowing Assessment: pt denies swallowing difficulty Mouth: pt denies chewing difficulty missing teeth Abdominal Assessment: Pt reported that he was having diarrhea for 3 days, but it is better now Appetite: fair Cognition: A&O x 4 Nutrition Deficits Prior to Admission: protein and calories Feeding Skills: Pt feeds self will cook and shop NFPE, completed on (06/05/25): Muscle depletion: Temporalis (head): mild Pectoralis (clavicle): mild Deltoid (shoulder): mild Interosseous (dorsal hand): mild Supraspinatus (scapular bone region): not assessed Infraspinatus (scapular bone region): not assessed Quadriceps (patellar region, anterior thigh): not assessed Gastrocnemius (post-calf region): not assessed Adipose depletion: Orbital: mild Buccal: mild Triceps: mild Ribs: not assessed Skin Integrity: documented to be intact Other Factors: EF 20% Nutrition Data/Clinical Indicators of Nutrition Status: Height: 172.7 cm (5' 8 ) Weight: 72.5 kg (159 lb 12.8 oz) BMI (Calculated): 24.3 Wt Readings from Last 10 Encounters: 06/05/25 72.5 kg (159 lb 12.8 oz) 05/14/25 77.1 kg (170 lb) 05/04/25 84.9 kg (187 lb 1.6 oz) 04/03/25 84.8 kg (187 lb) 02/26/25 85.7 kg (189 lb) 02/07/25 84.6 kg (186 lb 9.6 oz) 11/13/24 88 kg (194 lb) 07/03/24 88.9 kg (196 lb) 01/06/24 87.5 kg (193 lb) 06/29/23 86.2 kg (190 lb) IBW: 70 kg Weight change: Documented weight history shows weight loss of 13.2 kg over the past 3 months. Pt's reported that pt has lost 36 lbs since the beginning of April due to being in and out of the hospital. % weight change: 15.4% Severity of weight change: severe Nutrition Assessment: During RD assessment, pt was eating and reported that his appetite was okay, as it was the first time that he had ate since midnight. Pt ate all of his lunch wrap and cottage cheese. Pt reported thathis appetite has been decreased lately due to being in and out of the hospital. 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 Will typically eat 3-4 meals a day. Breakfast is eggs and toast or peanut butter and jelly on toast. Lunch is cereal or sandwich. Dinner will be what his cookslike spaghetti or meat and potatoes. Does not add salt to food. Have been drinking boost plus, but does not drink it everyday or it will give him diarrhea. Only likes chocolate, is agreeable to boostglucose control here. Dietary Orders (From admission, onward) Start Ordered 06/05/25 1547 Dietary nutrition supplements Breakfast; Boost Glucose Control; Chocolate; 8 oz; OralUntil discontinued Question Answer Comment Deliver with Breakfast Select supplement: Boost Glucose Control Flavor: Chocolate Strength: 8 oz Route Oral 06/05/25 1546 06/05/25 1300 Special Kitchen Request Once Comments: Please send strawberry ice cream with lunch order that was just called in. OK with physician at this time. 06/05/25 1259 06/05/25 1247 Regular Diet Heart Healthy/HTN, CABG,Stroke, (2gNA, low fat, low cholesterol) Diet effective now Question Answer Comment Room Service? Yes Fat restriction: Heart Healthy/HTN, CABG,Stroke, (2gNA, low fat, low cholesterol) 06/05/25 1246 Nutrition Risk: High Nutrition Needs: Needs based on: actual body weight (72.5 kg) Calorie needs: 9620-6083 kcals/day based on 25-30 kcal/kg Protein needs: 73-87 g/day based on 1.0-1.2 g/kg Fluid needs: 1813 ml/day based on 25 ml/kg Nutrition Diagnosis: Moderate protein calorie malnutrition related to chronic illness as evidenced by mild loss of muscle mass, mild loss of adipose fat, and weight loss of greater than 7.5% in 3 months. Malnutrition Assessment: Assessment Timepoint: Admit Reason for Referral: high risk Nutrition information obtained from:: Patient, Family, Medical Record Clinical Indicators of Malnutrition: unintentional weight loss, loss of subcutaneous fat with locations identified, loss of muscle mass with location identified Malnutrition Assessment (Completed by RD) Moderate (non-severe) PCM: Chronic Illness: severity of body fat loss (mild depletion), other (comment) (>7.5% weight loss in 3 months) Nutrition Treatment and Intervention Plan Treatment & Intervention Plan: continue current diet, monitor intakes and adjust recommendations as needed, RD to change supplement Nutrition Goals: intake > 75% meals, intake > 75% supplements, wt maintenance, compliance w/MNT, daily weights, maitain visceral protein Nutrition Education: Diet literature: Heart Failure Nutrition Therapy (explained CHF-diet relationship, discussed and reviewed reading nutrition labels, recommended daily sodium intake of no more than 2,000 mg/d (or 1~ tsp salt/d), reviewed and encouraged flavoring alternatives to salt, encouraged preparing more meals at home, recommended decreasing frequency of eating out/take-out foods, and encouraged avoiding or limiting salty snacks/processed foods/frozen foods ) Expected compliance/patient understanding: good Teach back method: pt verbalized understanding Time spent: 15 minutes Treatment Plan: Continue regular heart healthy diet Monitor intakes Boost glucose control daily Monitor acceptance Daily weights Monitor for unintentional weight changes Monitor and correct electrolytes as needed Goals: Adequate po intakes (kcals and protein); >75% meals Adherence/tolerance to ONS; >75% supplements Understanding of nutrition education/adherence to diet recommendations No significant unintentional wt loss Nutrition-related labs (magnesium, phosphorus, BMP) wnl To reach the Clinical Dietitian, please utilize [employer] chat Wednesday-Wednesday from 8AM-4PM or call extension [phone]. For weekends (Wednesday-Wednesday) and holidays, the Clinical Dietitian can be reached via pager [phone]) from 9AM-3PM. The Clinical Nutrition Department is unable to respond to [employer] chat messages on Sundays and hols. [1] Past Medical History: Diagnosis Date Asthma 07/29/2012 CHF (congestive heart failure) (CMS/HCC) Coronary artery disease History of malignant neoplasm of prostate 07/03/2022 Hypertension 07/03/2022 [2] No Known Allergies documented in this encounter H&P Notes * Sagrario Martel MD - 06/05/2025 9:50 AM EST H&P reviewed. The patient was examined and there are no changes to the H&P. Mr. Doherty, a 69 year old male scheduled for MASON to evaluate for endocarditis Past medical history includes hypertension, paroxysmal atrial fibrillation s/p Watchman 02/06/2025, chronic HFrEf (25-30%) s/p ICD 08/2022, olecranon bursitis, and CAD. Patient was recently discharged from the [facility] following hospitalization for pericardial effusion requiring pericardiocentesis and cardiogenic shock requiring inotropic therapy. He presented to [facility] on May 31 with generalized weakness and fatigue. He was admitted for LINDA. Blood cultures during this admission grew Staphylococcus lugdunensis, a coagulase-negative staphylococcus. An informed consent was obtained from the patient. Cosigned by Fani Sanchez MD at 06/05/2025 11:13 AM EST Associated attestation - Fani Sanchez MD - 06/05/2025 11:13 AM EST By using the attestations below, the signing clinician agrees that I have read and verify that thedocumentation has been personally reviewed by me and ensure that the documentation accurately reflects the encounter. GC: I personally saw this patient on the day of the encounter, performed the gonzáles portion(s) of the service and participated in the management and confirm the resident's/ fellow's Dr Martel documentation. Please note there may be an additional personal documentation from me. Fani Sanchez MD, [facility] Source Note - Sunil Medina MD - 06/05/2025 1:12 AM EST Images from the original note were not included. Hospital Medicine History and Physical 06/05/2025 1:12 AM THE HOSPITALIST TEAM PREFERS TO USE [employer] CHAT FOR NON-URGENT COMMUNICATION 7AM- 7PM. IF I DO NOT RESPOND WITHIN 20 MINUTES OR URGENT MATTERS, PLEASE CALL THROUGH THE DYE WORKER. FROM 7PM-7AM, PLEASE PAGE [phone](COVR). Chief Complaint bacteremia History of Present Illness Kristy Doherty is an 69 y.o. male who came from [facility] with past medical history of cardiomyopathy (EF 30-35%), status post ICD, paroxysmal A-fib status post Watchman, CAD, asthma, hypertension, and recent admission at [facility] for cardiogenic shock and pericardial effusion status post pericardiocentesis. Patient presented to [facility] on May 31 complaining of generalized weakness and fatigue. After he got discharged from [facility] home he was initially doing well with home health and assistance from his but had a steady decline and his functionality prior to going to the ER. Patient endorsed weight loss and chills presently. Has had decreased oral intake due to decreased appetite. At [facility], patient was initially treated for acute kidney injury which was thought to bedue to hypovolemia and was managed with IV fluid hydration and holding his diuretics. His renal function improved to baseline. patient was noted to have bacteremia, specifically staph lugdunensis. hehas been treated with Ancef. Repeat blood cultures have been pending. Patient had a transthoracic echocardiogram that did not show vegetation. While at [facility] he reports having with soft tissue skin infection on his right elbow which healed while he was receiving antibiotics. patient was transferred to [facility] for higher level of care to be seen by infectious disease and for cardiology consultation/MASON. Review of System and Physical Exam Temp: [36.2 ??C (97.2 ??F)] 36.2 ??C (97.2 ??F) Heart Rate: [91] 91 Resp: [20] 20 BP: (109-114)/(71-73) 114/71 Physical Exam Vitals reviewed. Constitutional: General: He is not in acute distress. Appearance: Normal appearance. He is not ill-appearing or toxic-appearing. HENT: Head: Normocephalic and atraumatic. Right Ear: External ear normal. Left Ear: External ear normal. Nose: Nose normal. Mouth/Throat: Mouth: Mucous membranes are moist. Pharynx: Oropharynx is clear. Eyes: Extraocular Movements: Extraocular movements intact. Conjunctiva/sclera: Conjunctivae normal. Pupils: Pupils are equal, round, and reactive to light. Cardiovascular: Rate and Rhythm: Normal rate and regular rhythm. Pulses: Normal pulses. Heart sounds: Normal heart sounds. Pulmonary: Effort: Pulmonary effort is normal. Breath sounds: Normal breath sounds. Abdominal: General: Abdomen is flat. Bowel sounds are normal. Palpations: Abdomen is soft. Musculoskeletal: Cervical back: No rigidity or tenderness. Right lower leg: No edema. Left lower leg: No edema. Skin: General: Skin is warm and dry. Capillary Refill: Capillary refill takes less than 2 seconds. Findings: No lesion or rash. Neurological: General: No focal deficit present. Mental Status: He is alert and oriented to person, place, and time. Mental status is at baseline. Psychiatric: Mood and Affect: Mood normal. Behavior: Behavior normal. Review of Systems Constitutional: Positive for activity change, appetite change, chills and fatigue. Negative for diaphoresis and fever. HENT: Negative. Eyes: Negative. Respiratory: Negative. Cardiovascular: Negative. Gastrointestinal: Negative. Endocrine: Negative. Genitourinary: Negative. Musculoskeletal: Negative. Skin: Negative. Allergic/Immunologic: Negative. Neurological: Negative. Hematological: Negative. Psychiatric/Behavioral: Negative. All other systems reviewed and are negative. Assessment and Plan Assessment & Plan Bacteremia Blood cultures were growing Staphylococcus lugdunensis Continue Ancef ID and Cardiology consult Cardiomyopathy (CMS/HCC) Heart failure with reduced ejection fraction (CMS/HCC) ICD (implantable cardioverter-defibrillator) in place Most recent echo showed EF of 20% Patient's Entresto, spironolactone, and Farxiga were held at [facility] due to hypotension and LINDA Metoprolol was being given Presently, patient appears euvolemic 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 continue aspirin, Plavix Lipitor held due to elevated LFTs Benign essential hypertension monitor blood pressure closely, currently on Toprol Paroxysmal atrial fibrillation (CMS/HCC) status post Watchman continue Toprol Pericardial effusion status post pericardiocentesis Right heart cath was not suggestive of for tamponade patient was previously discharged on colchicine Hyponatremia monitor sodium level Fluid restrict Hypomagnesemia replete magnesium Elevated LFTs LFTs were elevated above the hospital Statin was held Chronic anemia Monitor hemoglobin VTE Prophylaxis: Heparin subcutaneous ----- Focus of this inpatient stay will [...] this hospital stay by a member of [facility]. Past Medical History Medical History[1] [...] of Health Financial Resource Strain: Low Risk (06/05/2025) Overall Financial Resource Strain (CARDIA) Difficulty of Paying Living Expenses: Not hard at all Food Insecurity: No Food Insecurity (06/05/2025) Hunger Vital Sign Worried About Running Out of Food in the Last Year: Never true Ran Out of Food in the Last Year: Not on file Transportation Needs: No Transportation Needs (06/05/2025) Transportation Lack of Transportation (Medical): No Lack of Transportation (Non-Medical): Not on file Physical Activity: Not on file Stress: Not on file Social Connections: Not on file Intimate Partner Violence: Unknown (06/05/2025) Humiliation, Afraid, Rape, and Kick questionnaire Fear of Current or Ex-Partner: No Emotionally Abused: Not on file Physically Abused: Not on file Sexually Abused: Not on file Housing Stability: Low Risk (06/05/2025) Housing Stability Vital Sign Unable to Pay for Housing in the Last Year: No Number of Times Moved in the Last Year: Not on file Homeless in the Last Year: No Family History family history includes Emphysema in his father; Stroke in his mother; pacemaker in his mother. Allergies has no known allergies. Prior to Admission Medications Prescriptions Prior to Admission[3] Labs Labs Reviewed BLOOD CULTURE BLOOD CULTURE CBC AND DIFFERENTIAL Narrative: The following orders were created for panel order CBC and differential. Procedure Abnormality Status --------- ------ CBC auto differential[[id number]] Please view results for these tests on the individual orders. COMPREHENSIVE METABOLIC PANEL APTT PROTIME-INR MAGNESIUM CBC WITH AUTO DIFFERENTIAL Imaging US neck Narrative: US NECK Clinical information: Neck swelling. Pain. Comparison: None. Impression: * No measurable abnormality, however, there appears to be some ill-defined hypoechoic tissue in the neck which could relate to soft tissue edema, hematoma not excluded. Consider cross-sectional imaging and duplex vascular ultrasound as indicated. Electronically signed: Virgilio Barillas MD. Signed Sunilanne Medina MD [facility] 06/05/2025 1:12 AM [1] Past Medical History: Diagnosis Date Asthma 07/29/2012 CHF (congestive heart failure) (CMS/HCC) Coronary artery disease History of malignant neoplasm of prostate 07/03/2022 Hypertension 07/03/2022 [2] Past Surgical History: Procedure Laterality Date BAND HEMORRHOIDECTOMY CARDIAC CATHETERIZATION PROSTATECTOMY SINUS SURGERY [3] Medications Prior to Admission Medication Sig Dispense Refill Last Dose/Taking albuterol 90 mcg/actuation inhaler Inhale 1 puff 2 times daily. allopurinol (Zyloprim) 300 mg tablet Take 300 mg by mouth in the morning. aspirin 81 mg chewable tablet Chew 1 tablet (81 mg) with breakfast. 90 tablet 3 atorvastatin (Lipitor) 40 mg tablet Take 1 tablet (40 mg) by mouth at bedtime. 90 tablet 3 clopidogrel (Plavix) 75 mg tablet Take 1 tablet (75 mg) by mouth in the morning. 90 tablet 3 colchicine 0.6 mg tablet Take 1 tablet (0.6 mg) by mouth in the morning. 30 tablet 2 dapagliflozin propanediol (Farxiga) 10 mg Take 1 tablet (10 mg) by mouth once daily as directed. 90tablet 3 Dupixent Syringe 300 mg/2 mL syringe injection Inject 300 mg under the skin every 14 (fourteen) days. fluticasone (Flonase) 50 mcg/actuation nasal spray Administer 1 spray into each nostril two times daily. Shake gently. Before first use, prime pump. After use, clean tip and replace cap. fluticasone propion-salmeteroL (Advair Diskus) 500-50 mcg/dose diskus inhaler Inhale 1 puff two times daily. furosemide (Lasix) 20 mg tablet Take 2 tablets (40 mg) by mouth if needed each day (for legs swelling or weight gain >2-3 lbs a day). 30 tablet 0 metoprolol succinate XL (Toprol-XL) 25 mg 24 hr tablet Take 0.5 tablets (12.5 mg) by mouth once daily as directed. Do not crush or chew. 45 tablet 3 spironolactone (Aldactone) 25 mg tablet Take 1 tablet (25 mg) by mouth in the morning. 90 tablet 3 * Sunil Medina MD - 06/05/2025 1:12 AM EST Images from the original note were not included. Hospital Medicine History and Physical 06/05/2025 1:12 AM THE HOSPITALIST TEAM PREFERS TO USE [facility] FOR NON-URGENT COMMUNICATION 7AM- 7PM. IF I DO NOT RESPOND WITHIN 20 MINUTES OR URGENT MATTERS, PLEASE CALL THROUGH THE DYE WORKER. FROM 7PM-7AM, PLEASE PAGE [phone](COVR). Chief Complaint bacteremia History of Present Illness Kristy Doherty is an 69 y.o. male who came from [facility] with past medical history of cardiomyopathy (EF 30-35%), status post ICD, paroxysmal A-fib status post Watchman, CAD, asthma, hypertension, and recent admission at [facility] for cardiogenic shock and pericardial effusion status post pericardiocentesis. Patient presented to [facility] on May 31 complaining of generalized weakness and fatigue. After he got discharged from [facility] home he was initially doing well with home health and assistance from his but had a steady decline and his functionality prior to going to the ER. Patient endorsed weight loss and chills presently. Has had decreased oral intake due to decreased appetite. At [facility], patient was initially treated for acute kidney injury which was thought to bedue to hypovolemia and was managed with IV fluid hydration and holding his diuretics. His renal function improved to baseline. patient was noted to have bacteremia, specifically staph lugdunensis. hehas been treated with Ancef. Repeat blood cultures have been pending. Patient had a transthoracic echocardiogram that did not show vegetation. While at [facility] he reports having with soft tissue skin infection on his right elbow which healed while he was receiving antibiotics. patient was transferred to [facility] for higher level of care to be seen by infectious disease and for cardiology consultation/MASON. Review of System and Physical Exam Temp: [36.2 ??C (97.2 ??F)] 36.2 ??C (97.2 ??F) Heart Rate: [91] 91 Resp: [20] 20 BP: (109-114)/(71-73) 114/71 Physical Exam Vitals reviewed. Constitutional: General: He is not in acute distress. Appearance: Normal appearance. He is not ill-appearing or toxic-appearing. HENT: Head: Normocephalic and atraumatic. Right Ear: External ear normal. Left Ear: External ear normal. Nose: Nose normal. Mouth/Throat: Mouth: Mucous membranes are moist. Pharynx: Oropharynx is clear. Eyes: Extraocular Movements: Extraocular movements intact. Conjunctiva/sclera: Conjunctivae normal. Pupils: Pupils are equal, round, and reactive to light. Cardiovascular: Rate and Rhythm: Normal rate and regular rhythm. Pulses: Normal pulses. Heart sounds: Normal heart sounds. Pulmonary: Effort: Pulmonary effort is normal. Breath sounds: Normal breath sounds. Abdominal: General: Abdomen is flat. Bowel sounds are normal. Palpations: Abdomen is soft. Musculoskeletal: Cervical back: No rigidity or tenderness. Right lower leg: No edema. Left lower leg: No edema. Skin: General: Skin is warm and dry. Capillary Refill: Capillary refill takes less than 2 seconds. Findings: No lesion or rash. Neurological: General: No focal deficit present. Mental Status: He is alert and oriented to person, place, and time. Mental status is at baseline. Psychiatric: Mood and Affect: Mood normal. Behavior: Behavior normal. Review of Systems Constitutional: Positive for activity change, appetite change, chills and fatigue. Negative for diaphoresis and fever. HENT: Negative. Eyes: Negative. Respiratory: Negative. Cardiovascular: Negative. Gastrointestinal: Negative. Endocrine: Negative. Genitourinary: Negative. Musculoskeletal: Negative. Skin: Negative. Allergic/Immunologic: Negative. Neurological: Negative. Hematological: Negative. Psychiatric/Behavioral: Negative. All other systems reviewed and are negative. Assessment and Plan Assessment & Plan Bacteremia Blood cultures were growing Staphylococcus lugdunensis Continue Ancef ID and Cardiology consult Cardiomyopathy ([facility]) Heart failure with reduced ejection fraction ([facility]) ICD (implantable cardioverter-defibrillator) in place Most recent echo showed EF of 20% Patient's Entresto, spironolactone, and Farxiga were held at [facility] due to hypotension and LINDA Metoprolol was being given Presently, patient appears euvolemic 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 continue aspirin, Plavix Lipitor held due to elevated LFTs Benign essential hypertension monitor blood pressure closely, currently on Toprol Paroxysmal atrial fibrillation ([facility]) status post Watchman continue Toprol Pericardial effusion status post pericardiocentesis Right heart cath was not suggestive of for tamponade patient was previously discharged on colchicine Hyponatremia monitor sodium level Fluid restrict Hypomagnesemia replete magnesium Elevated LFTs LFTs were elevated above the hospital Statin was held Chronic anemia Monitor hemoglobin VTE Prophylaxis: Heparin subcutaneous ----- Focus of this inpatient stay will [...] this hospital stay by a member of [facility]. Past Medical History Medical History[1] [...] of Health Financial Resource Strain: Low Risk (06/05/2025) Overall Financial Resource Strain (CARDIA) Difficulty of Paying Living Expenses: Not hard at all Food Insecurity: No Food Insecurity (06/05/2025) Hunger Vital Sign Worried About Running Out of Food in the Last Year: Never true Ran Out of Food in the Last Year: Not on file Transportation Needs: No Transportation Needs (06/05/2025) Transportation Lack of Transportation (Medical): No Lack of Transportation (Non-Medical): Not on file Physical Activity: Not on file Stress: Not on file Social Connections: Not on file Intimate Partner Violence: Unknown (06/05/2025) Humiliation, Afraid, Rape, and Kick questionnaire Fear of Current or Ex-Partner: No Emotionally Abused: Not on file Physically Abused: Not on file Sexually Abused: Not on file Housing Stability: Low Risk (06/05/2025) Housing Stability Vital Sign Unable to Pay for Housing in the Last Year: No Number of Times Moved in the Last Year: Not on file Homeless in the Last Year: No Family History family history includes Emphysema in his father; Stroke in his mother; pacemaker in his mother. Allergies has no known allergies. Prior to Admission Medications Prescriptions Prior to Admission[3] Labs Labs Reviewed BLOOD CULTURE BLOOD CULTURE CBC AND DIFFERENTIAL Narrative: The following orders were created for panel order CBC and differential. Procedure Abnormality Status --------- ------ CBC auto differential[[id number]] Please view results for these tests on the individual orders. COMPREHENSIVE METABOLIC PANEL APTT PROTIME-INR MAGNESIUM CBC WITH AUTO DIFFERENTIAL Imaging US neck Narrative: US NECK Clinical information: Neck swelling. Pain. Comparison: None. Impression: * No measurable abnormality, however, there appears to be some ill-defined hypoechoic tissue in the neck which could relate to soft tissue edema, hematoma not excluded. Consider cross-sectional imaging and duplex vascular ultrasound as indicated. Electronically signed: Virgilio Barillas MD. Signed Sunilanne Medina MD [facility] 06/05/2025 1:12 AM [1] Past Medical History: Diagnosis Date Asthma 07/29/2012 CHF (congestive heart failure) (CMS/HCC) Coronary artery disease History of malignant neoplasm of prostate 07/03/2022 Hypertension 07/03/2022 [2] Past Surgical History: Procedure Laterality Date BAND HEMORRHOIDECTOMY CARDIAC CATHETERIZATION PROSTATECTOMY SINUS SURGERY [3] Medications Prior to Admission Medication Sig Dispense Refill Last Dose/Taking albuterol 90 mcg/actuation inhaler Inhale 1 puff 2 times daily. allopurinol (Zyloprim) 300 mg tablet Take 300 mg by mouth in the morning. aspirin 81 mg chewable tablet Chew 1 tablet (81 mg) with breakfast. 90 tablet 3 atorvastatin (Lipitor) 40 mg tablet Take 1 tablet (40 mg) by mouth at bedtime. 90 tablet 3 clopidogrel (Plavix) 75 mg tablet Take 1 tablet (75 mg) by mouth in the morning. 90 tablet 3 colchicine 0.6 mg tablet Take 1 tablet (0.6 mg) by mouth in the morning. 30 tablet 2 dapagliflozin propanediol (Farxiga) 10 mg Take 1 tablet (10 mg) by mouth once daily as directed. 90tablet 3 Dupixent Syringe 300 mg/2 mL syringe injection Inject 300 mg under the skin every 14 (fourteen) days. fluticasone (Flonase) 50 mcg/actuation nasal spray Administer 1 spray into each nostril two times daily. Shake gently. Before first use, prime pump. After use, clean tip and replace cap. fluticasone propion-salmeteroL (Advair Diskus) 500-50 mcg/dose diskus inhaler Inhale 1 puff two times daily. furosemide (Lasix) 20 mg tablet Take 2 tablets (40 mg) by mouth if needed each day (for legs swelling or weight gain >2-3 lbs a day). 30 tablet 0 metoprolol succinate XL (Toprol-XL) 25 mg 24 hr tablet Take 0.5 tablets (12.5 mg) by mouth once daily as directed. Do not crush or chew. 45 tablet 3 spironolactone (Aldactone) 25 mg tablet Take 1 tablet (25 mg) by mouth in the morning. 90 tablet 3 documented in this encounter Consult Notes * Johann Simental MD - 06/05/2025 11:33 AM EST Images from the original note were not included. Cardiothoracic Surgery Consultation Note As the teaching physician, I have personally performed or re-performed the history of present illness, physical exam and medical decision-making activities of the encounter and verified the medical student's documentation. I made pertinent changes as necessary to ensure accurate documentation. He has staph bacteremia and is currently on Ancef. MASON reviewed. Two mobile masses noted on atrial aspect of the Watchman device which appears intact. There is also a mobile mass in the right atrium probably attached to the ICD lead with associated moderate tricuspid regurgitation extending into the right ventricle. There is also associated aortic regurgitation. LVEF is low around 20% . Will needdiagnostic LHC. We will continue to follow the patient with you until his unfortunate situation clarifies. JOHANN SIMENTAL MD Physician Cardiac Surgery [phone] 06/05/2025 Room: [address] [place] [address] Reason For Consult Endocarditis Referring Provider: Felicia Moon MD History Of Present Illness Kristy Doherty is a 69 y.o. male with a past medical history of cardiomyopathy, status post ICD, paroxysmal A-fib status post Watchman, CAD, asthma, hypertension, recent admission at [facility] for cardiogenic shock and pericardial effusion status post pericardiocentesis presenting with generalized weakness and fatigue. Patient reports weight loss, chills, SOB with exertion, decreased oral intake and appetite. Blood cultures at [place] positive for staph lugdunensis. Patient reports symptoms began last Wednesday, and progressed until he was no longer able to stand and walk on which prompted the admission [facility]. Denies chest pain, fever, rash, and edema. Transferred to [facility] for MASON to rule out endocarditis. Preliminary discussion of MASON reports vegetationon tricuspid valve - waiting on final read. TTE 04/29/2025: Left Ventricle: Global left ventricular systolic function is severely reduced. The EF is 20 % visually. Diffuse global hypokinesis. Right Ventricle: Mildly reduced right ventricular systolic function. Doppler studies suggest mildly elevated right sided pressures. Left Atrium: The left atrium appears enlarged. Mitral Valve: Mild mitral regurgitation. Aortic Valve: Mild aortic valveregurgitation. Tricuspid Valve: Moderate tricuspid regurgitation. 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 Dr. Johann Simental personally examined the patient andreviewed The Cardiac Catherization, Echocardiogram, CXR, and Other Diagnostic Testing. Findings discussed with guest request runner and patient. Explained current disease process and reviewed treatment options. -CT Surgery Recommendation: Continue Ancef. Require diagnostic cardiac catheterization. Waiting on repeat blood cultures and final MASON read. -CT Surgery will continue to follow. Past Medical History He has a past medical history of Asthma (07/29/2012), CHF (congestive heart failure) (CMS/HCC), Coronary artery disease, History of malignant neoplasm of prostate (07/03/2022), and Hypertension (07/03/2022). Surgical History He has a past surgical history that includes Prostatectomy; Cardiac catheterization; Sinus surgery;and Band hemorrhoidectomy. Family History Family History[1] Social History He reports that he has quit smoking. His smoking use included cigarettes. He has never used smokeless tobacco. He reports current alcohol use of about 14.0 standard drinks of alcohol per week. He reports that he does not use drugs. Allergies Patient has no known allergies. Medications Current Medications[2] Review of Systems Review of Systems: All 14 Systems Reviewed and Negative unless otherwise indicated in the above HPI. Last Recorded Vitals Patient Vitals for the past 24 hrs: BP Temp Temp src Pulse Resp SpO2 Height Weight 06/05/25 1128 103/75 -- -- 83 19 98 % -- -- 06/05/25 1058 106/80 -- -- 82 18 96 % -- -- 06/05/25 1051 109/77 -- -- 84 21 97 % -- -- 06/05/25 1048 108/78 -- -- 82 18 97 % -- -- 06/05/25 1045 102/73 -- -- 84 18 96 % -- -- 06/05/25 1042 102/72 -- -- 84 17 96 % -- -- 06/05/25 1039 108/70 -- -- 83 16 96 % -- -- 06/05/25 1036 100/72 -- -- 83 16 96 % -- -- 06/05/25 1033 102/69 -- -- 83 13 95 % -- -- 06/05/25 1030 103/73 -- -- 85 16 96 % -- -- 06/05/25 1027 103/70 -- -- 86 14 96 % -- -- 06/05/25 1024 105/71 -- -- 87 14 96 % -- -- 06/05/25 1021 96/72 -- -- 87 21 96 % -- -- 06/05/25 1018 107/76 -- -- 87 14 96 % -- -- 06/05/25 1015 107/77 -- -- 91 22 97 % -- -- 06/05/25 1014 -- -- -- -- -- 99 % -- -- 06/05/25 1014 104/78 -- -- 89 18 97 % -- -- 06/05/25 1012 117/81 -- -- 88 18 97 % -- -- 06/05/25 0952 103/76 -- -- 92 20 96 % -- -- 06/05/25 0949 -- -- -- -- -- 95 % -- -- 06/05/25 0949 103/76 -- -- 87 19 96 % -- -- 06/05/25 0745 104/75 36.1 ??C (97 ??F) Temporal 95 22 99 % -- -- 06/05/25 0645 -- -- -- -- -- -- 1.727 m (5' 8 ) -- 06/05/25 0457 116/67 -- -- 105 21 97 % -- -- 06/05/25 0400 92/65 36.3 ??C (97.3 ??F) Temporal 104 23 95 % -- -- 06/05/25 0326 -- -- -- -- -- -- -- 72.5 kg (159 lb 12.8 oz) 06/05/25 0208 118/82 36.5 ??C (97.7 ??F) Temporal 107 13 99 % -- -- 06/05/25 0100 114/71 -- -- 91 20 97 % -- -- 06/05/25 0047 109/73 36.2 ??C (97.2 ??F) Temporal 91 20 98 % -- -- Physical Exam Physical Exam HENT: Head: Normocephalic. Nose: Nose normal. Mouth/Throat: Pharynx: Oropharynx is clear. Eyes: Extraocular Movements: Extraocular movements intact. Pupils: Pupils are equal, round, and reactive to light. Neck: Vascular: No carotid bruit. Cardiovascular: Rate and Rhythm: Normal rate and regular rhythm. Pulses: Normal pulses. Heart sounds: No murmur heard. No gallop. Pulmonary: Effort: Pulmonary effort is normal. No respiratory distress. Breath sounds: Normal breath sounds. No stridor. No wheezing. Abdominal: General: Abdomen is flat. Bowel sounds are normal. Palpations: Abdomen is soft. Tenderness: There is no abdominal tenderness. Musculoskeletal: General: Normal range of motion. Cervical back: Normal range of motion. Skin: General: Skin is warm and dry. Capillary Refill: Capillary refill takes less than 2 seconds. Neurological: General: No focal deficit present. Mental Status: He is alert and oriented to person, place, and time. Psychiatric: Mood and Affect: Mood normal. Behavior: Behavior normal. Relevant Results Admission on 06/05/2025 Component Date Value Ref Range Status Sodium 06/05/2025 127 (L) 136 - 145 mmol/L Final Potassium 06/05/2025 4.2 3.5 - 5.1 mmol/L Final Chloride 06/05/2025 101 98 - 107 mmol/L Final CO2 06/05/2025 19 (L) 21 - 31 mmol/L Final Anion Gap 06/05/2025 11 7 - 20 mmol/L Final BUN 06/05/2025 27 (H) 7 - 25 mg/dL Final Creatinine 06/05/2025 1.00 0.70 - 1.30 mg/dL Final BUN/Creatinine Ratio 06/05/2025 27.0 Final Glucose 06/05/2025 102 (H) 70 - 100 mg/dL Final Calcium 06/05/2025 8.5 (L) 8.6 - 10.3 mg/dL Final AST 06/05/2025 96 (H) 13 - 39 U/L Final ALT (SGPT) 06/05/2025 48 7 - 52 U/L Final Alkaline Phosphatase 06/05/2025 81 34 - 104 U/L Final Total Protein 06/05/2025 6.9 6.0 - 8.3 g/dL Final Albumin 06/05/2025 3.2 (L) 3.5 - 5.7 g/dL Final Total Bilirubin 06/05/2025 0.5 0.3 - 1.0 mg/dL Final eGFR 06/05/2025 81.5 >60.0 mL/min/1.73m*2 Final [facility]???s estimated glomerular filtration rate (eGFR) will [...] disproportionately affect any one group of individuals. aPTT 06/05/2025 37.0 (H) 25.0 - 35.0 Seconds Final Clinical significance of the APTT is questionable in the presence of heparin. Protime 06/05/2025 15.5 (H) 12.3 - 14.8 Seconds Final INR 06/05/2025 1.22 (H) 0.90 - 1.10 Final ACCCP RECOMMENDED INR [...] EFFECTIVENESS, AND OPTIMAL THERAPEUTIC RANGE. CHEST 1995;108:231S-246S. Magnesium 06/05/2025 1.5 (L) 1.9 - 2.7 mg/dL Final Auto WBC 06/05/2025 9.66 4.00 - 10.60 10*3/uL Final RBC 06/05/2025 3.03 (L) 4.20 - 5.70 10*6/uL Final Hemoglobin 06/05/2025 9.1 (L) 13.0 - 17.0 g/dL Final Hematocrit 06/05/2025 27.4 (L) 39.0 - 50.0 % Final MCV 06/05/2025 90.4 82.0 - 98.0 fL Final MCH 06/05/2025 30.0 27.0 - 33.0 pg Final MCHC 06/05/2025 33.2 32.0 - 35.0 g/dL Final RDW 06/05/2025 15.1 (H) 11.5 - 15.0 % Final Neutrophils % 06/05/2025 74.2 (H) 40.0 - 72.0 % Final Lymphocytes % 06/05/2025 13.9 (L) 20.0 - 45.0 % Final Monocytes % 06/05/2025 10.8 5.0 - 12.0 % Final Eosinophils % 06/05/2025 0.3 0.0 - 6.0 % Final Basophils % 06/05/2025 0.2 0.0 - 1.0 % Final Neutrophils Absolute 06/05/2025 7.17 1.60 - 7.60 10*3/uL Final Lymphocytes Absolute 06/05/2025 1.34 1.20 - 4.00 10*3/uL Final Monocytes Absolute 06/05/2025 1.04 (H) 0.10 - 1.00 10*3/uL Final Eosinophils Absolute 06/05/2025 0.03 0.00 - 0.50 10*3/uL Final Basophils Absolute 06/05/2025 0.02 0.00 - 0.20 10*3/uL Final Platelets 06/05/2025 184 150 - 400 10*3/uL Final nRBC % 06/05/2025 0.0 0 % Final Immature Granulocytes % 06/05/2025 0.6 0.0 - 1.0 % Final Immature Granulocytes Absolute 06/05/2025 0.06 0.00 - 0.20 10*3/uL Final Glucose POC 06/05/2025 96 70 - 105 mg/dL Final jsansom3 BSA 06/05/2025 1.86 m2 In process No echocardiogram results found for the past 14 days CTA Chest W IV Contrast Result Date: 04/23/2025 * No central pulmonary embolus. * Small bilateral pleural effusions. * Enlarged main pulmonary artery suggestive of pulmonary arterial hypertension. Reflux of contrast into the suprahepatic IVC suggestive of right heart dysfunction. Approved by:Benedict Katz04/23/2025 5:40 PM. IHowie,have reviewed the image(s) and agree with the findings in this report. Electronically signed: Howie Velasquez. CT cervical spine wo IV contrast Result Date: 04/23/2025 No evidence of acute fracture or traumatic malalignment. Approved by:Phill Orellana 4:14 AM. Ayden Ramirez MD,have reviewed the image(s) and agree with the findings in this report. Electronically signed: Ayden Corbin MD. CT head wo IV contrast Result Date: 04/23/2025 * No acute intracranial abnormality, by CT. * Chronic and senescent changes as described. Approved by:Phill Orellana 4:07 AM. Ayden Ramirez MD,have reviewed the image(s) and agree with the findings in this report. Electronically signed: Ayden Corbin MD. CTA Chest W IV Contrast Result Date: 03/30/2025 Left atrial appendage closure device in place with no complications appreciated. Normal left atrialsize and configuration and normal appearance of the draining bilateral pulmonary veins. Diffuse idiopathic skeletal hyperostosis. Vascular calcifications and left subclavian pacemaker in place. rightrenal cysts. Electronically signed: Keri Agarwal MD. No X-ray results found for the past 3 days Pal Espino, Leonid [facility] To reach Cardiothoracic Surgery Inpatient from 8am-4pm call Ascom #[phone]. Only use [employer] chat for general questions. If unable to reach Ascom Number call hospital buncher operator for Cardiothoracic Provider Appliance Line Assembler. Cardiothoracic Surgery outpatient Office Number [phone]. Cardiothoracic Surgery outpatient . [1] Family History Problem Relation Name Age of Onset Other (pacemaker) Mother Stroke Mother Emphysema Father [2] Current Facility-Administered Medications: acetaminophen (Tylenol) tablet 650 mg, 650 mg, oral, q6h PRN, Sunil Medina MD allopurinol (Zyloprim) tablet 300 mg, 300 mg, oral, Daily, Lauren Topete MD, 300 mg at 06/05/25 09 aspirin chewable tablet 81 mg, 81 mg, oral, Daily with breakfast, Kathya Curry MD atorvastatin (Lipitor) tablet 40 mg, 40 mg, oral, Nightly, Lauren Topete MD ceFAZolin in dextrose (iso-os) (Ancef) IVPB 2 g, 2 g, intravenous, q8h, Sunil Medina MD, Stopped at 06/05/25 0526 [Held by provider] clopidogrel (Plavix) tablet 75 mg, 75 mg, oral, Daily, Lauren Topete MD colchicine tablet 0.6 mg, 0.6 mg, oral, Daily, Lauren Topete MD, 0.6 mg at 06/05/25 09 magnesium oxide (Mag-Ox) tablet 400 mg, 400 mg, oral, q8h, Sunil Medina MD, 400 mg at melatonin tablet 5 mg, 5 mg, oral, Nightly PRN, Sunil Medina MD metoprolol succinate XL (Toprol-XL) 24 hr split tablet 12.5 mg, 12.5 mg, oral, Once Daily, Lauren Topete MD, 12.5 mg at 06/05/25 09 mometasone-formoterol (Dulera 100) 100-5 mcg/actuation inhaler 1 puff, 1 puff, inhalation, BID, Lauren Topete MD, 1 puff at 06/05/25 0800 Insert peripheral IV, , , Once AND Saline lock IV, , , Once AND sodium chloride flush 10 mL, 10 mL, intravenous, q8h PRN, Sunil Medina MD * Aldo Javier MD - 06/05/2025 10:33 AM ESTAssociated Order(s): IP CONSULT TO INFECTIOUS DISEASES Images from the original note were not included. Infectious Diseases - Initial Consult Note - Patient name: Kristy Doherty Patient Today's Date and Time: 06/05/2025, 10:33 AM Admission Date: 06/05/2025 Impression: Staph lugdenesis bacteremia cardiomyopathy (EF 30-35%), status post ICD paroxysmal A-fib status post Watchman 02/06/2025 CAD Asthma HTN Recent admission 05/04/2025 cardiogenic shock and pericardial effusion status post pericardiocentesis Recommendations: Will monitor MASON results from today Will monitor blood culture On [facility] As the teaching physician, I have personally performed or re-performed the history of present illness, physical exam and medical decision-making activities of the encounter and verified the medical student's documentation. I made pertinent changes as necessary to ensure accurate documentation. There may be additional comments below. Additional Comments: Presented with weakness and decreased appetite four days, found to have staph lugd bacteremia, transferred to [place] for MASON Pending repeat blood cx We received the cx from OSH< no resistance, cefazolin is ok for now, prelim MASON read vegetation on the device. cardiology Aldo javier MD Infectious diseases Subjective Reason for consultation / Chief complaint: Referring Provider: Sunil Medina MD History of Present Illness Kristy Doherty is a 69 y.o.-year-old male who was initially admitted on 06/05/2025. Came from [facility] with past medical history of cardiomyopathy (EF 30-35%), status post ICD, paroxysmal A-fib status post Watchman 02/06/2025, CAD, asthma, hypertension, and recent admission at [facility] for cardiogenic shock and pericardial effusion status post pericardiocentesis 05/04/2025. Patient presented to [facility] on May 31 complaining of generalized weakness and fatigue. After he got discharged from [facility] on 05/04 he was initially doing well with home health and assistance from his but had a steady decline and his functionality prior to going to the ER. Patient endorsed weight loss and chills presently. Has had decreased oral intake due to decreased appetite. At [facility], patient was initially treated for acute kidney injury which was thought to bedue to hypovolemia and was managed with IV fluid hydration and holding his diuretics. His renal function improved to baseline. patient was noted to have bacteremia, specifically staph lugdunensis. hehas been treated with Ancef. Repeat blood cultures have been pending. Patient had a transthoracic echocardiogram that did not show vegetation. While at [facility] he reports having with soft tissue skin infection on his right elbow which healed while he was receiving antibiotics. patient was transferred to [facility] for higher level of care to be seen by infectious disease and for cardiology consultation/MASON. Past Medical History: Medical History[1] Past Surgical History: Surgical History[2] Medications: Scheduled: allopurinol, 300 mg, oral, Daily [Held by provider] aspirin, 81 mg, oral, Daily with breakfast atorvastatin, 40 mg, oral, Nightly ceFAZolin, 2 g, intravenous, q8h [Held by provider] clopidogrel, 75 mg, oral, Daily colchicine, 0.6 mg, oral, Daily magnesium oxide, 400 mg, oral, q8h metoprolol succinate XL, 12.5 mg, oral, Once Daily mometasone-formoterol, 1 puff, inhalation, BID Infusions: sodium chloride, , Last Rate: 20 mL/hr (06/05/25 0948) Social History: Social History Socioeconomic History Marital status: Single [...] of Health Financial Resource Strain: Low Risk (06/05/2025) Overall Financial Resource Strain (CARDIA) Difficulty of Paying Living Expenses: Not hard at all Food Insecurity: No Food Insecurity (06/05/2025) Hunger Vital Sign Worried About Running Out of Food in the Last Year: Never true Ran Out of Food in the Last Year: Not on file Transportation Needs: No Transportation Needs (06/05/2025) Transportation Lack of Transportation (Medical): No Lack of Transportation (Non-Medical): Not on file Physical Activity: Not on file Stress: Not on file Social Connections: Not on file Intimate Partner Violence: Unknown (06/05/2025) Humiliation, Afraid, Rape, and Kick questionnaire Fear of Current or Ex-Partner: No Emotionally Abused: Not on file Physically Abused: Not on file Sexually Abused: Not on file Housing Stability: Low Risk (06/05/2025) Housing Stability Vital Sign Unable to Pay for Housing in the Last Year: No Number of Times Moved in the Last Year: Not on file Homeless in the Last Year: No Family History: Family History[3] Immunization History: Immunization History Administered Date(s) Administered DTP 07/01/2022 Influenza, Unspecified 07/29/2012 Pfizer SARS-CoV-2 Vaccination 2020, 10/11/2020 Unspecified Sars-Cov-2 Vaccination 2020, 10/11/2020, 05/30/2021 Allergies: Allergies[4] Review of Systems: General: No fevers or chills. Eyes: No double vision or blurry vision. ENT: No sore throat or runny nose. Cardiovascular: No chest pain or palpitations. Lung: No shortness of breath or cough. Abdomen: No nausea, vomiting, diarrhea, or abdominal pain. Genitourinary: No increased urinary frequency, or dysuria. Musculoskeletal: No muscle aches or pains. Hematologic: No bleeding or bruising. Neurologic: No headache, weakness, numbness, or tingling. Objective Physical Examination: BP 103/70 Pulse 86 Temp 36.1 ??C (97 ??F) (Temporal) Resp 14 Ht 1.727 m (5' 8 ) Wt 72.5 kg (159 lb 12.8 oz) SpO2 96% BMI 24.30 kg/m?? Temperature Range: Temp: 36.1 ??C (97 ??F) Temp Av.3 ??C (97.3 ??F) Min: 36.1 ??C (97 ??F) Max: 36.5 ??C (97.7 ??F) General Appearance: Awake, alert, and in no apparent distress, nontoxic Eyes: Sclera anicteric; conjunctivae ENT: Oropharynx clear, without erythema, exudate, no thrush. Neck: Supple, without lymphadenopathy. Pulmonary/Chest: Clear to auscultation, without wheezes, rales, no rhonchi Cardiovascular: Regular rate and rhythm without murmurs Abdomen: soft, non-tender, nondistended, no palpable masses no organomegaly; normal bowel sounds Extremities: No cyanosis, edema, no joint effusions. Neurologic: Alert and oriented x 3, nonfocal; strength and sensation grossly normal Skin: No rash no lesions. Labs: Results from last 7 days Lab Units 06/05/25 0138 WBC AUTO 10*3/uL 9.66 HEMOGLOBIN g/dL 9.1* HEMATOCRIT % 27.4* MCV fL 90.4 PLATELETS AUTO 10*3/uL 184 NEUTROS ABS 10*3/uL 7.17 LYMPHS ABSOLUTE 10*3/uL 1.34 MONOS ABSOLUTE 10*3/uL 1.04* EOS ABSOLUTE 10*3/uL 0.03 BASOS ABSOLUTE 10*3/uL 0.02 Results from last 7 days Lab Units 06/05/25 0138 POTASSIUM mmol/L 4.2 CHLORIDE mmol/L 101 CO2 mmol/L 19* BUN mg/dL 27* CREATININE mg/dL 1.00 CALCIUM mg/dL 8.5* TOTAL PROTEIN g/dL 6.9 BILIRUBIN TOTAL mg/dL 0.5 ALK PHOS U/L 81 ALT U/L 48 AST U/L 96* No lab exists for component: PROCALCITON No lab exists for component: TURBIDITY , SPECIFICGRA , PHURINE , LEUKOCYTE , PROTEIN , BLOODHGB , RBCELLS , RENALEPITH Imaging Studies: I have reviewed myself the following imaging studies performed in the past 3 days: No X-ray results found for the past [address] results found for the past 3 days No MRI results found for the past 3 days Cultures: Lab Results Component Value Date BLOOD CULTURE No growth at 5 days 04/20/2025 BLOOD CULTURE No growth at 5 days 04/20/2025 No results found for any visits on 06/05/25. Thank you for allowing us to participate in the care of this patient. Our consultation addresses complex antimicrobial therapy counseling and treatment Devika Taylor, MS4 UTP Infectious Diseases Please contact us via [employer] chat during business hours. If no response in 15 min, call / page through the buncher operator [1] Past Medical History: Diagnosis Date Asthma 07/29/2012 CHF (congestive heart failure) (CMS/HCC) Coronary artery disease History of malignant neoplasm of prostate 07/03/2022 Hypertension 07/03/2022 [2] Past Surgical History: Procedure Laterality Date BAND HEMORRHOIDECTOMY CARDIAC CATHETERIZATION PROSTATECTOMY SINUS SURGERY [3] Family History Problem Relation Name Age of Onset Other (pacemaker) Mother Stroke Mother Emphysema Father [4] No Known Allergies documented in this encounter Miscellaneous Notes * Assessment & Plan Note - Lauren Topete MD - 06/06/2025 12:27 PM ESTAssociated Problem(s): Cardiomyopathy (CMS/HCC) Most recent echo showed EF of 20% Patient's Entresto, spironolactone, and Farxiga were held at [facility] due to hypotension and LINDA Metoprolol was being given Presently, patient appears euvolemic * Assessment & Plan Note - Lauren Topete MD - 06/06/2025 12:27 PM ESTAssociated Problem(s): Heart failure with reduced ejection fraction (CMS/HCC) Most recent echo showed EF of 20% Patient's Entresto, spironolactone, and Farxiga were held at [facility] due to hypotension and LINDA Metoprolol was being given Presently, patient appears euvolemic * Assessment & Plan Note - Lauren Topete MD - 06/06/2025 12:27 PM ESTAssociated Problem(s): ICD (implantable cardioverter-defibrillator) in place Most recent echo showed EF of 20% Patient's Entresto, spironolactone, and Farxiga were held at [facility] due to hypotension and LINDA Metoprolol was being given Presently, patient appears euvolemic * Assessment & Plan Note - Lauren Topete MD - 06/06/2025 12:27 PM ESTAssociated Problem(s): 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 -Continue aspirin, Plavix on hold. Lipitor held due to elevated LFTs * Assessment & Plan Note - Lauren Topete MD - 06/06/2025 12:27 PM ESTAssociated Problem(s): Benign essential hypertension -Continue with metoprolol. Holding Entresto/spironolactone/Farxiga due to borderline hypotension. * Assessment & Plan Note - Lauren Topete MD - 06/06/2025 12:27 PM ESTAssociated Problem(s): Paroxysmal atrial fibrillation (CMS/HCC) status post Watchman continue Toprol * Assessment & Plan Note - Lauren Topete MD - 06/06/2025 12:27 PM ESTAssociated Problem(s): Pericardial effusion -Diagnosed on recent admission. Not evident on his MASON done on this admission. Status post pericardiocentesis Right heart cath was not suggestive of for tamponade patient was previously discharged on colchicine * Assessment & Plan Note - Lauren Topete MD - 06/06/2025 12:27 PM ESTAssociated Problem(s): Hyponatremia monitor sodium level Fluid restrict * Assessment & Plan Note - Lauren Topete MD - 06/06/2025 12:27 PM ESTAssociated Problem(s): Hypomagnesemia replete magnesium * Assessment & Plan Note - Lauren Topete MD - 06/06/2025 12:27 PM ESTAssociated Problem(s): Elevated LFTs LFTs were elevated above the hospital Statin was held * Assessment & Plan Note - Lauren Topete MD - 06/06/2025 12:27 PM ESTAssociated Problem(s): Chronic anemia Monitor hemoglobin * Assessment & Plan Note - Lauren Topete MD - 06/06/2025 12:27 PM ESTAssociated Problem(s): Moderate protein-calorie malnutrition - Clinical dietitian consulted, recommendations as below * Assessment & Plan Note - Lauren Topete MD - 06/06/2025 12:27 PM ESTAssociated Problem(s): Bacteremia Blood cultures continues to be positive for Staphylococcus lugdunensis Continue Ancef ID and Cardiology consult -MASON 06/05/2025: Two small mobile masses are present on the atrial side of the Watchman device. Twomobile echodensities is also seen in the right atrium extending into the right ventricle attached to the ICD lead, and probably the tricuspid valve. - Cardiothoracic surgery requesting diagnostic left heart cath, discussed with cardiology, they will discuss the case with the mine wirer. * Assessment & Plan Note - Lauren Topete MD - 06/06/2025 12:27 PM ESTAssociated Problem(s): Sepsis due to Staphylococcus (CMS/HCC) Blood cultures continues to be positive for Staphylococcus lugdunensis Continue Ancef ID and Cardiology consult -MASON 06/05/2025: Two small mobile masses are present on the atrial side of the Watchman device. Twomobile echodensities is also seen in the right atrium extending into the right ventricle attached to the ICD lead, and probably the tricuspid valve. - Cardiothoracic surgery requesting diagnostic left heart cath, discussed with cardiology, they will discuss the case with the mine wirer. * Assessment & Plan Note - Lauren Topete MD - 06/06/2025 12:27 PM ESTAssociated Problem(s): Acute bacterial endocarditis Blood cultures continues to be positive for Staphylococcus lugdunensis Continue Ancef ID and Cardiology consult -MASON 06/05/2025: Two small mobile masses are present on the atrial side of the Watchman device. Twomobile echodensities is also seen in the right atrium extending into the right ventricle attached to the ICD lead, and probably the tricuspid valve. - Cardiothoracic surgery requesting diagnostic left heart cath, discussed with cardiology, they will discuss the case with the mine wirer. * Assessment & Plan Note - Lauren Topete MD - 06/06/2025 12:27 PM ESTAssociated Problem(s): Infection involving implantable cardioverter-defibrillator (ICD) Blood cultures continues to be positive for Staphylococcus lugdunensis Continue Ancef ID and Cardiology consult -MASON 06/05/2025: Two small mobile masses are present on the atrial side of the Watchman device. Twomobile echodensities is also seen in the right atrium extending into the right ventricle attached to the ICD lead, and probably the tricuspid valve. - Cardiothoracic surgery requesting diagnostic left heart cath, discussed with cardiology, they will discuss the case with the mine wirer. * Significant Event - Birdie Schultz RN - 06/06/2025 11:35 AM EST 06/06/25 1130 Admission Assessment Questions Verify insurance with patient Yes Do you understand medical disease or what brought you into the hospital? Yes Who is your current PCP? Rudy King MD Can I schedule a follow up appointment for you at the time of discharge? Yes Does patient qualify for Complex Care Management Enrollment? No Do you understand why you are taking your current medications? Yes Are you taking your medications as prescribed? Yes Did patient provide teach back? No Pharmacy Bedside Delivery Status [place]ed [email or web address] Does the patient have a outpatient case manager assigned to them through their insurance? No Living Arrangement (Current/Prior to Hospitalization) Private residence (with ) Does the patient have history of HHC or SNF? Yes (Hx of HHC; doesn't think he is current with them. No SNF hx) Assistive Device Walker (has walker but rarely uses) Patient's goal for discharge To discharge home Was patient reminded that goal for discharge is 11am? No Does the patient have transportation at discharge? Yes Type of Residence Private residence Is PT/OT appropriate? Yes Is PT/OT ordered? No Is SW consult appropriate? No Is SW consult ordered? No Do you understand the benefits of MyChart? Yes Were you able to send link and activate MyChart? Yes * Care Plan - Kelly Nuno RN - 06/06/2025 10:26 AM EST The patient is Moderately Stable - Low risk of patient condition declining or worsening The patient's goals for the shift include figure out the plan The clinical goals for the shift include stable hemodynamics, safety Problem: Pain - Adult Goal: Verbalizes/displays adequate comfort level or baseline comfort level Outcome: Progressing Problem: Safety - Adult Goal: Free from fall injury Outcome: Progressing Problem: Discharge Planning Goal: Discharge to home or other facility with appropriate resources Outcome: Progressing * Care Plan - Riya Natarajan RN - 06/06/2025 4:33 AM EST The patient is Moderately Stable - Low risk of patient condition declining or worsening The patient's goals for the shift include rest/sleep The clinical goals for the shift include VSS Waiting on blood culture results for further planning-CT surg consulted. Mult vegatations found by MASON . Ancef therapy continues. * Care Plan - Roseanne Dior RN - 06/05/2025 11:18 AM EST Daily Case Management Update Multidisciplinary rounds have been completed. Barriers to Discharge: Pending clinical course and improvement in clinical condition. Planning MASON to evaluate for endocarditis. HFrEF (25-30%) PMH: ICD. 30-day event monitor, patient's currently wearing. Recently discharged from the [facility] following hospitalization for pericardial effusion requiring pericardiocentesis. Discharge plan is to return home with home health care and DME when medically ready. Diet: Dietary Orders (From admission, onward) Start Ordered 06/05/25109 Diet NPO Diet effective now Comments: Sips with medications Question: Reason for NPO: Answer: Operation/Procedure 06/05/25111 Physician Expected Discharge Date: 06/07/2025 Discharge Delays: PT Six Click Score: OT Six Click Score: PT Recommendations: OT Recommendations: New Consults: Consult Orders (From admission, onward) Start Ordered 06/05/25110 Inpatient consult to Cardiology Once Specialty: Cardiology Provider: (Not yet assigned) Question Answer Comment Reason for Consult? bacteremia, needs [facility]ON [facility] CARDIOLOGY TEAM Level of Consultation Consultation and Management 06/05/2511106/05/25110 Inpatient consult to Infectious Diseases Once Specialty: Infectious Diseases Provider: (Not yet assigned) Question Answer Comment Consulting Group INFECTIOUS DISEASE TEAM Reason for Consult? bactermia Level of Consultation Consultation and Management 06/05/25 0112 * Pre-Sedation Documentation - Sagrario Martel MD - 06/05/2025 9:51 AM EST Patient: Kristy Doherty Medical History[1] Principle problems: Patient Active Problem List Diagnosis Date Noted Acute kidney injury 06/05/2025 Anemia 06/05/2025 Chronic kidney disease, stage 3a ([facility]/HCC) 06/05/2025 Gout 06/05/2025 Coronary artery disease involving catawba coronary artery of catawba heart without angina pectoris 06/05/2025 HFrEF (heart failure with reduced ejection fraction) ([facility]) 06/05/2025 Bacteremia 06/05/2025 Elevated LFTs 06/05/2025 Chronic anemia 06/05/2025 Cardiogenic shock ([facility]) 05/03/2025 ATN (acute tubular necrosis) 05/03/2025 Hematoma of intravenous catheter site 05/03/2025 Sinus tachycardia 04/23/2025 Right ventricular dysfunction 04/23/2025 Hypotension due to hypovolemia 04/20/2025 Chest pain 04/19/2025 Heart failure with reduced ejection fraction ([facility]) 04/19/2025 Pericardial effusion 04/19/2025 Hyponatremia 04/19/2025 Leukocytosis 04/19/2025 Atrial fibrillation ([facility]) 01/24/2025 Paroxysmal atrial fibrillation ([facility]) 07/22/2023 PAF (paroxysmal atrial fibrillation) ([facility]) 07/22/2023 Chronic pansinusitis 03/02/2023 Nasal polyp 03/02/2023 Allergic rhinitis due to pollen 03/02/2023 ICD (implantable cardioverter-defibrillator) in place 09/15/2022 Nonischemic cardiomyopathy ([facility]/HCC) 09/01/2022 Depressive disorder 08/31/2022 Dyslipidemia 08/31/2022 Prediabetes 08/31/2022 Seasonal allergic rhinitis 08/31/2022 Steatosis of liver 08/31/2022 Vitamin D deficiency 08/31/2022 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 07/06/2022 Chronic systolic heart failure ([facility]) 07/06/2022 Chronic HFrEF (heart failure with reduced ejection fraction) ([facility]) 07/06/2022 History of malignant neoplasm of prostate 07/03/2022 Hypomagnesemia 07/03/2022 Primary hypertension 07/03/2022 New onset of congestive heart failure ([facility]) 07/02/2022 Uncomplicated asthma 07/29/2012 Mild persistent asthma without complication 07/29/2012 Benign essential hypertension 05/27/2011 Hyperlipidemia 07/02/2008 Malignant tumor of prostate ([facility]) 07/02/2008 Cardiomyopathy ([facility]) 09/01/2022 Syncope and collapse 07/02/2022 Allergies: Allergies[2] REGISTRATION SCHEDULING SPECIALIST/Current Medications: Prescriptions Prior to Admission[3] Current Medications[4] Past Surgical History: has a past surgical history that includes Prostatectomy; Cardiac catheterization; Sinus surgery; and Band hemorrhoidectomy. Physical Exam Airway Mallampati: III Cardiovascular Rhythm: regular Rate: normal Dental Pulmonary Plan ASA 3 [1] Past Medical History: Diagnosis Date Asthma 07/29/2012 CHF (congestive heart failure) ([facility]) Coronary artery disease History of malignant neoplasm of prostate 07/03/2022 Hypertension 07/03/2022 [2] No Known Allergies [3] Medications Prior to Admission Medication Sig Dispense Refill Last Dose/Taking albuterol 90 mcg/actuation inhaler Inhale 1 puff 2 times daily. 06/04/2025 allopurinol (Zyloprim) 300 mg tablet Take 300 mg by mouth in the morning. Past Week aspirin 81 mg chewable tablet Chew 1 tablet (81 mg) with breakfast. 90 tablet 3 Past Week atorvastatin (Lipitor) 40 mg tablet Take 1 tablet (40 mg) by mouth at bedtime. 90 tablet 3 Past Week clopidogrel (Plavix) 75 mg tablet Take 1 tablet (75 mg) by mouth in the morning. 90 tablet 3 Past Week colchicine 0.6 mg tablet Take 1 tablet (0.6 mg) by mouth in the morning. 30 tablet 2 Past Week dapagliflozin propanediol (Farxiga) 10 mg Take 1 tablet (10 mg) by mouth once daily as directed. 90tablet 3 Past Week Dupixent Syringe 300 mg/2 mL syringe injection Inject 300 mg under the skin every 14 (fourteen) days. Past Week fluticasone (Flonase) 50 mcg/actuation nasal spray Administer 1 spray into each nostril two times daily. Shake gently. Before first use, prime pump. After use, clean tip and replace cap. Past Week fluticasone propion-salmeteroL (Advair Diskus) 500-50 mcg/dose diskus inhaler Inhale 1 puff two times daily. Past Week furosemide (Lasix) 20 mg tablet Take 20 mg by mouth if needed each day. Past Month metoprolol succinate XL (Toprol-XL) 25 mg 24 hr tablet Take 0.5 tablets (12.5 mg) by mouth once daily as directed. Do not crush or chew. 45 tablet 3 Past Week spironolactone (Aldactone) 25 mg tablet Take 1 tablet (25 mg) by mouth in the morning. 90 tablet 3 Past Week furosemide (Lasix) 20 mg tablet Take 2 tablets (40 mg) by mouth if needed each day (for legs swelling or weight gain >2-3 lbs a day). 30 tablet 0 [4] Current Facility-Administered Medications Medication Dose Route Frequency Provider Last Rate Last Admin acetaminophen (Tylenol) tablet 650 mg 650 mg oral q6h PRN Sunil MD Adam allopurinol (Zyloprim) tablet 300 mg 300 mg oral Daily Lauren Topete MD 300 mg at 06/05/25 0906 [Held by provider] aspirin chewable tablet 81 mg 81 mg oral Daily with breakfast Lauren Topete MD atorvastatin (Lipitor) tablet 40 mg 40 mg oral Nightly Lauren Topete MD ceFAZolin in dextrose (iso-os) (Ancef) IVPB 2 g 2 g intravenous q8h Sunil MD Aadm Stopped at108/05/24 0526 [Held by provider] clopidogrel (Plavix) tablet 75 mg 75 mg oral Daily Lauren Topete MD colchicine tablet 0.6 mg 0.6 mg oral Daily Lauren Topete MD 0.6 mg at 06/05/25 0906 magnesium oxide (Mag-Ox) tablet 400 mg 400 mg oral q8h Sunil MD Adam 400 mg at 06/05/25 0456 melatonin tablet 5 mg 5 mg oral Nightly PRN Sunil MD Adam metoprolol succinate XL (Toprol-XL) 24 hr split tablet 12.5 mg 12.5 mg oral Once Daily Lauren Topete MD 12.5 mg at 06/05/25 0906 mometasone-formoterol (Dulera 100) 100-5 mcg/actuation inhaler 1 puff 1 puff inhalation BID Lauren Topete MD 1 puff at 06/05/25 0800 sodium chloride 0.9 % infusion Continuous PRN Fani Sanchez MD 20 mL/hr at 06/05/25 0948 20 mL/hr at 06/05/25 0948 sodium chloride flush 10 mL 10 mL intravenous q8h PRN Sunil Medina MD Cosigned by Fani Sanchez MD at 06/05/2025 11:13 AM EST * Care Plan - Kelly Nuno RN - 06/05/2025 9:45 AM EST The patient is Moderately Stable - Low [...] Progressing * Assessment & Plan Note - Sunil Medina MD - 06/05/2025 4:17 AM EST Associated Problem(s): Bacteremia Blood cultures were growing Staphylococcus lugdunensis Continue Ancef ID and Cardiology consult * Assessment & Plan Note - Sunil Medina MD - 06/05/2025 4:17 AM EST Associated Problem(s): 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 continue aspirin, Plavix Lipitor held due to elevated LFTs * Assessment & Plan Note - Sunil Medina MD - 06/05/2025 4:17 AM EST Associated Problem(s): ICD (implantable cardioverter-defibrillator) in place Most recent echo showed EF of 20% Patient's Entresto, spironolactone, and Farxiga were held at [facility] due to hypotension and LINDA Metoprolol was being given Presently, patient appears euvolemic * Assessment & Plan Note - Sunil Medina MD - 06/05/2025 4:17 AM EST Associated Problem(s): Benign essential hypertension monitor blood pressure closely, currently on Toprol * Assessment & Plan Note - Sunil Medina MD - 06/05/2025 4:17 AM EST Associated Problem(s): Paroxysmal atrial fibrillation (CMS/HCC) status post Watchman continue Toprol * Assessment & Plan Note - Sunil Medina MD - 06/05/2025 4:17 AM EST Associated Problem(s): Heart failure with reduced ejection fraction (CMS/HCC) Most recent echo showed EF of 20% Patient's Entresto, spironolactone, and Farxiga were held at [facility] due to hypotension and LINDA Metoprolol was being given Presently, patient appears euvolemic * Assessment & Plan Note - Sunil Medina MD - 06/05/2025 4:17 AM EST Associated Problem(s): Pericardial effusion status post pericardiocentesis Right heart cath was not suggestive of for tamponade patient was previously discharged on colchicine * Assessment & Plan Note - Sunil Medina MD - 06/05/2025 4:17 AM EST Associated Problem(s): Cardiomyopathy (CMS/HCC) Most recent echo showed EF of 20% Patient's Entresto, spironolactone, and Farxiga were held at [facility] due to hypotension and LINDA Metoprolol was being given Presently, patient appears euvolemic * Assessment & Plan Note - Sunil Medina MD - 06/05/2025 4:17 AM EST Associated Problem(s): Hyponatremia monitor sodium level Fluid restrict * Assessment & Plan Note - Sunil Medina MD - 06/05/2025 4:17 AM EST Associated Problem(s): Hypomagnesemia replete magnesium * Assessment & Plan Note - Sunil Medina MD - 06/05/2025 4:17 AM EST Associated Problem(s): Elevated LFTs LFTs were elevated above the hospital Statin was held * Assessment & Plan Note - Suinl Medina MD - 06/05/2025 4:17 AM EST Associated Problem(s): Chronic anemia Monitor hemoglobin * Care Plan - Cintia Eaton RN - 06/05/2025 12:47 AM EST The patient is Moderately Stable - Low risk of patient condition declining or worsening The patient's goals for the shift include comfort, rest The clinical goals for the shift include stable vitals, safety. Problem: Pain - Adult Goal: Verbalizes/displays adequate comfort level or baseline comfort level Outcome: Progressing Problem: Safety - Adult Goal: Free from fall injury Outcome: Progressing Problem: Discharge Planning Goal: Discharge to home or other facility with appropriate resources Outcome: Progressing Problem: Chronic Conditions and Co-morbidities Goal: Patient's chronic conditions and co-morbidity symptoms are monitored and maintained or improved Outcome: Progressing Problem: Skin/Tissue Integrity - Adult Goal: Skin integrity remains intact Outcome: Progressing documented in this encounter Plan of Treatment DateTypeDepartmentCare Team (Latest Contact Info)Xsmxurirwkt58/02/2025 9:[address] [facility] [address] [place] [address] Bobo Raymond MD [address] [place] [phone] 06/22/2025 10:[address] [facility] [address] [place] [address] Hay William MD [address] [facility] [address] [place] [id number] NameTypePriorityAssociated DiagnosesDate/TimeBlood culture, peripheral #1 AltmjmfspxdiGKSG73/18/2025 1:39 AM ESTBlood culture, peripheral #2Microbiology STAT108/05/2024 1:38 AM ESTNameTypePriorityAssociated DiagnosesOrder ScheduleCBC LabRoutineDaily (Lab) for 3 Days starting 06/07/2025 until 06/09/2025asic metabolic panelLabRoutineDaily (Lab) for 3 Days starting 06/07/2025 until 06/09/2025lood cultureMicrobiologyRoutineOnce (Lab) for 1 Occurrences starting 06/07/2025 until 06/07/2025NamePriorityAssociated DiagnosesDate/TimeCORONARY ANGIOGRAPHY Valvular endocarditis RIGHT HEART CATH Valvular endocarditis documented as of this encounter Procedures * The patient is currently admitted. The information in this section might not be complete until the patient is discharged. Procedure NamePriorityDate/TimeAssociated DiagnosisCommentsGOLD TOPRoutine 06/06/2025 8:00 AM EST EXTRA PPCEWLifupkh22/19/2025 8:00 AM EST ZLEFQUJ9406/06/2025 7:45 AM EST BASIC METABOLIC GFMULLSFL34/19/2025 7:45 AM EST TRANSESOPHAGEAL ECHO (MASON) W/ COLOR HYEEJaytuoh88/18/2025 11:00 AM EST POCT GLUCOSE METER UNSOLICITED OZCNDYYXujtwxv89/18/2025 1:57 AM EST BLOOD CULTURE IDENTIFICATION PCR PANEL, XSURQQKPhsmhgx66/18/2025 1:39 AM EST BLOOD JSMJVSJFRVU48/18/2025 1:39 AM ESTCBC WITH AUTO KLSLKATIVQQYSBWK11/18/2025 1:38 AM EST BLOOD QSCYDXSPACA97/18/2025 1:38 AM YHLYLFWYTUB58/18/2025 1:38 AM EST PROTIME-CXQBXVS7006/05/2025 1:38 AM EST CBC AND TPUIYDHPYTRSFUBC27/18/2025 1:38 AM EST UAKPYZJUYWLBM09/18/2025 1:38 AM EST COMPREHENSIVE METABOLIC QNYAGPFEZ38/18/2025 1:38 AM EST documented in this encounter Results * Gold Top (06/06/2025 8:00 AM EST)ComponentValueRef RangeTest MethodAnalysis TimePerformed AtPathologist SignatureExtra TubeHold for add-ons.06/06/2025 10:01 AM [facility] [email or web address] LAB ([facility])Comment:Auto resulted.Specimen (Source) Anatomical Location / LateralityCollection Method / VolumeCollection Time Received TimeBloodVenous blood specimen / Zmzuiej5006/06/2025 8:00 AM EST 06/06/2025 8:27 AM EST Narrative Authorizing ProviderResult TypeResult StatusSarmed Yoselyn MURRAY BLOOD ORDERABLES Final ResultPerforming OrganizationAddressCity/State/ZIP CodePhone Number [facility] [[email or web address] LAB ([facility]) [address] [place] [address] * (ABNORMAL) Basic metabolic panel (06/06/2025 7:45 AM EST)ComponentValueRef RangeTest MethodAnalysis TimePerformed AtPathologist RcocxtzmuUjepng049(L)136 - 145 mmol/L108/06/2024 9:50 AM [facility] [[email or web address] LAB ([facility])Potassium4.23.5 - 5.1 mmol/L108/06/2024 9:50 AM [facility] [[email or web address] LAB ([facility])Ophkzyxr10767 - 107 mmol/L108/06/2024 9:50 AM [facility] [[email or web address] LAB ([facility])CO220(L)21 - 31 mmol/L 06/06/2025 9:50 AM [facility] [[email or web address] LAB ([facility])POK655 - 25 mg/dL06/06/2025 9:50 AM [facility] [[email or web address] LAB ([facility])Creatinine1.000.70 - 1.30 mg/dL06/06/2025 9:50 AM [facility] [[email or web address] LAB ([facility])Aigywhg4597 - 100 mg/dL06/06/2025 9:50 AM [facility] [[email or web address] LAB ([facility])Calcium8.4(L)8.6 - 10.3 mg/dL06/06/2025 9:50 AM [facility] [[email or web address] LAB ([facility])Anion Sxc598 - 20 mmol/L108/06/2024 9:50 AM EST [facility] [[email or web address] LAB ([facility])eGFR81.5>60.0 mL/min/1.73m* 9:50 AM EST [facility] [[email or web address] LAB ([facility])Comment:[facility]???s estimated glomerular filtration rate (eGFR) will [...] affect any one group of ind ividuals.BUN/Creatinine Ratio22.011 9:50 AM [facility] [[email or web address] LAB ([facility])Specimen (Source)Anatomical Location / LateralityCollection Method / VolumeCollection TimeReceived TimeBloodVenous blood specimen / Unknown Venipuncture / Kfemnki8706/06/2025 7:45 AM EST06/06/2025 8:25 AM EST Narrative Authorizing ProviderResult TypeResult StatusSarmed Yoselyn MURRAY BLOOD ORDERABLES Final ResultPerforming OrganizationAddressCity/State/ZIP CodePhone Number [facility] [[email or web address] LAB ([facility]) [address] [place] [address] * (ABNORMAL) CBC (06/06/2025 7:45 AM EST)ComponentValueRef RangeTest Method Analysis TimePerformed AtPathologist SignatureAuto WBC11.12(H)4.00 - 10.60 10*3/uL06/06/2025 9:02 AM [facility] [[email or web address] LAB ([facility])RBC2.96(L)4.20 - 5.70 10*6/uL06/06/2025 9:02 AM [facility] [[email or web address] LAB ([facility])Ovsseizqdo56.2(L)13.0 - 17.0 g/dL06/06/2025 9:02 AM [facility] [[email or web address] LAB ([facility])Jirgaeomow01.0(L)39.0 - 50.0 %06/06/2025 9:02 AM [facility] [[email or web address] LAB ([facility])Comment:Spun DpbbstxbfcJPG07.882.0 - 98.0 fL06/06/2025 9:02 AM [facility] [[email or web address] LAB ([facility])MCH34.5(H)27.0 - 33.0 pg06/06/2025 9:02 AM [facility] [[email or web address] LAB [facility])MCHC36.5(H)32.0 - 35.0 g/dL06/06/2025 9:02 AM [email or web address] LAB ([facility])Comment:Calculated VugmfxRJT58.911.5 - 15.0 %06/06/2025 9:02 AM EST [facility] [[email or web address] LAB ([facility])Gkustzgcj333153 - 400 10*3/uL06/06/2025 9:02 AM EST [facility] [[email or web address] LAB ([facility])Specimen (Source)Anatomical Location / Laterality Collection Method / VolumeCollection TimeReceived TimeBloodVenous blood specimen / UnknownVenipuncture / Nqldqgc5006/06/2025 7:45 AM EST06/06/2025 8:25 AM EST Narrative Authorizing ProviderResult TypeResult StatusSarmed Yoselyn MURRAY BLOOD ORDERABLES Final ResultPerforming OrganizationAddressCity/State/ZIP CodePhone Number [facility] [[email or web address] LAB ([facility]) [address] [place] [address] * TRANSESOPHAGEAL ECHO (MASON) W/ COLOR FLOW (06/05/2025 11:00 AM EST)Anatomical RegionLateralityModalityOtherSpecimen (Source)Anatomical Location / Laterality Collection Method / VolumeCollection TimeReceived Time06/05/2025 10:06 AM EST Narrative 06/05/2025 4:46 PM EST [facility] Heart Station [address] [place] [address] [phone] (fax) Transesophageal Echocardiogram-[facility] Name: KRISTY DOHERTY Study Date: 06/05/2025 10:06 AM B/P: 102 mmHg/73 mmHg HR: Date of : 1955 Location: [facility] Height: 68 in. Age: 69 year(s) Patient Room: 3102 Weight: 159 lb. Gender: Male Patient Status: InPt BSA: 1.85 m2 Indication: Bactermia, S/P 35 mm Watchman device FLX, H/O Pericardiocentesis, ICD Examination: MASON (Transesophageal Echo / CFI) Image Quality: Good Patient Consent: Informed, written consent was obtained for the procedure Exam Location: A MASON was performed in the [facility] without complications Anesthesia Pharyngeal anesthesia with viscous Lidocaine Conclusions Left Ventricle: The left ventricle appears enlarged. Global left ventricular systolic function is severely reduced. The EF is 20 % visually. Right Ventricle: The right ventricle appears normal in size. Right ventricular systolic function appears normal. Left Atrium: The left atrium appears enlarged. Left Atrium Appendage: There are two mobile oscillating echodense massess attached to the atrial aspect of the watchman device. No ted-device leak is identified. ?? IAS: Normal appearing atrial septum. Right Atrium: Two mobile masses noted in the RA extending to the RV, attached to the ICD lead and probable to the tricuspid valve. . Mitral Valve: Mild mitral regurgitation. Aortic Valve: Moderate aortic valve regurgitation. Tricuspid Valve: A mobile echodensity found in the right atrium, extending into the right ventricle, attached to the ICD lead and probably to tricuspid valve . Moderate tricuspid regurgitation. Aorta: Mild atherosclerotic plaque is seen in the aorta. Pericardium: No pericardial effusion. Overall Conclusions: Two small mobile masses are present on the atrial side of the Watchman device. Two mobile echodensities is also seen in the right atrium extending into the right ventricle attached to the ICD lead, and probably the tricuspid valve. Medications Date Time Name Route Form Dose Units Ordered By Given By Comment 06/05/2025 11:01 AM Midazolam HCL (Versed) 3 milligrams 06/05/2025 11:01 AM Fentanyl (Opiates) 50 micrograms Measurements Left Ventricle Label Value Normal Value LVOTd 2.3 cm (19cm - 21cm) LVEF visual 20 % Valvular Assessment LVOT 0.7 - 1.1 m/sec Aortic Valve 1.0 - 1.7 m/sec Mitral Valve 0.6 - 1.3 m/sec Tricuspid Valve 0.3 - 0.7 m/sec Pulmonic Valve 0.6 - 0.9 m/sec Regurgitation Mod Mild Moderate Trivial Stenosis No No No No Findings Left Ventricle: The left ventricle appears enlarged. Global left ventricular systolic function is severely reduced. The EF is 20 % visually. Right Ventricle: The right ventricle appears normal in size. Right ventricular systolic function appears normal. A pacemaker wire is seen in the right atrium and right ventricle. Left Atrium: The left atrium appears enlarged. Left Atrium Appendage: There are two mobile oscillating echodense massess attached to the atrial aspect of the watchman device. No ted-device leak is identified. ?? IAS: Normal appearing atrial septum. Right Atrium: Two mobile masses noted in the RA extending to the RV, attached to the ICD lead and probable to the tricuspid valve. . The right atrium appears enlarged. Mitral Valve: The mitral valve is normal in mobility and thickness. Mild mitral regurgitation. No mitral valve stenosis. Aortic Valve: Aortic valve appears normal. Moderate aortic valve regurgitation. No aortic valve stenosis. The aortic valve is trileaflet. No vegetation is identified in the aortic valve. Tricuspid Valve: A mobile echodensity found in the right atrium, extending into the right ventricle, attached to the ICD lead and probably to tricuspid valve . Moderate tricuspid regurgitation. No tricuspid valve stenosis. Pulmonic Valve: Normal pulmonary valve. Trivial pulmonary regurgitation. No pulmonic valve stenosis. No vegetation is identified in the pulmonic valve. Aorta: Mild atherosclerotic plaque is seen in the aorta. Pericardium: No pericardial effusion. Procedure Staff Reading Group: [facility] Leathersmith: Bryanna Cazares RDCS ??Ordering Physician: Bebo Dominguez MD ?? Procedure Note Fani Sanchez MD - 06/05/2025 1 [facility] Heart Station [address] [place] [address] [phone] (fax) Transesophageal Echocardiogram-[facility] Name: KRISTY DOHERTY Study Date: 06/05/2025 10:06 AM B/P: 102 mmHg/73 mmHg HR: Date of : 1955 Location: [facility] Height: 68 in. Age: 69 year(s) Patient Room: 3102 Weight: 159 lb. Gender: Male Patient Status: InPt BSA: 1.85 m2 Indication: Bactermia, S/P 35 mm Watchman device FLX, H/O Pericardiocentesis, ICD Examination: MASON (Transesophageal Echo / CFI) Image Quality: Good Patient Consent: Informed, written consent was obtained for the procedure Exam Location: A MASON was performed in the [facility] without complications Anesthesia Pharyngeal anesthesia with viscous Lidocaine Conclusions Left Ventricle: The left ventricle appears enlarged. Global left ventricular systolic function is severely reduced. The EF is 20 % visually. Right Ventricle: The right ventricle appears normal in size. Right ventricular systolic function appears normal. Left Atrium: The left atrium appears enlarged. Left Atrium Appendage: There are two mobile oscillating echodense massess attached to the atrial aspect of the watchman device. No ted-device leak is identified. IAS: Normal appearing atrial septum. Right Atrium: Two mobile masses noted in the RA extending to the RV, attached to the ICD lead and probable to the tricuspid valve. . Mitral Valve: Mild mitral regurgitation. Aortic Valve: Moderate aortic valve regurgitation. Tricuspid Valve: A mobile echodensity found in the right atrium, extending into the right ventricle, attached to the ICD lead and probably to tricuspid valve . Moderate tricuspid regurgitation. Aorta: Mild atherosclerotic plaque is seen in the aorta. Pericardium: No pericardial effusion. Overall Conclusions: Two small mobile masses are present on the atrial side of the Watchman device. Two mobile echodensities is also seen in the right atrium extending into the right ventricle attached to the ICD lead, and probably the tricuspid valve. Medications Date Time Name Route Form Dose Units Ordered By Given By Comment 06/05/2025 11:01 AM Midazolam HCL (Versed) 3 milligrams 06/05/2025 11:01 AM Fentanyl (Opiates) 50 micrograms Measurements Left Ventricle Label Value Normal Value LVOTd 2.3 cm (19cm - 21cm) LVEF visual 20 % Valvular Assessment LVOT 0.7 - 1.1 m/sec Aortic Valve 1.0 - 1.7 m/sec Mitral Valve 0.6 - 1.3 m/sec Tricuspid Valve 0.3 - 0.7 m/sec Pulmonic Valve 0.6 - 0.9 m/sec Regurgitation Mod Mild Moderate Trivial Stenosis No No No No Findings Left Ventricle: The left ventricle appears enlarged. Global left ventricular systolic function is severely reduced. The EF is 20 % visually. Right Ventricle: The right ventricle appears normal in size. Right ventricular systolic function appears normal. A pacemaker wire is seen in the right atrium and right ventricle. Left Atrium: The left atrium appears enlarged. Left Atrium Appendage: There are two mobile oscillating echodense massess attached to the atrial aspect of the watchman device. No ted-device leak is identified. IAS: Normal appearing atrial septum. Right Atrium: Two mobile masses noted in the RA extending to the RV, attached to the ICD lead and probable to the tricuspid valve. . The right atrium appears enlarged. Mitral Valve: The mitral valve is normal in mobility and thickness. Mild mitral regurgitation. No mitral valve stenosis. Aortic Valve: Aortic valve appears normal. Moderate aortic valve regurgitation. No aortic valve stenosis. The aortic valve is trileaflet. No vegetation is identified in the aortic valve. Tricuspid Valve: A mobile echodensity found in the right atrium, extending into the right ventricle, attached to the ICD lead and probably to tricuspid valve . Moderate tricuspid regurgitation. No tricuspid valve stenosis. Pulmonic Valve: Normal pulmonary valve. Trivial pulmonary regurgitation. No pulmonic valve stenosis. No vegetation is identified in the pulmonic valve. Aorta: Mild atherosclerotic plaque is seen in the aorta. Pericardium: No pericardial effusion. Procedure Staff Reading Group: [facility] Leathersmith: Bryanna Cazares RDCS Ordering Physician: Bebo Dominguez MD Authorizing ProviderResult TypeResult StatusRacary Dominguez [facility] [place] ECHO PROCEDURES Final Result * POCT glucose meter (06/05/2025 1:57 AM EST)ComponentValueRef RangeTest Method Analysis TimePerformed AtPathologist SignatureGlucose HZA2059 - 105 mg/dL 06/05/2025 2:09 AM [facility] [[email or web address] LAB ([facility])Comment:[id number] (Source)Anatomical Location / LateralityCollection Method / VolumeCollection TimeReceived TimeBloodCapillary blood specimen / Tcoowvb1606/05/2025 1:57 AM EST 06/05/2025 2:09 AM EST Narrative [facility] [[email or web address] LAB ([facility]) - 06/05/2025 2:09 AM EST Waived Testing in the ED is performed under the ED CLIA certificate #[id number]. Authorizing ProviderResult TypeResult StatusOmar Samara MURRAY BLOOD ORDERABLES Final ResultPerforming OrganizationAddressCity/State/ZIP CodePhone Number [facility] ([facility]) [address] [place] [address] * (ABNORMAL) Blood culture identification panel, aerobic (06/05/2025 1:39 AM EST)ComponentValueRef RangeTest MethodAnalysis TimePerformed AtPathologist SignatureEnterococcus faecalisNot DetectedNot Revguqfi99/19/2025 12:11 AM EST [facility] [[email or web address] LAB ([facility])Enterococcus faeciumNot DetectedNot Detected 06/06/2025 12:11 AM [facility] [[email or web address] LAB ([facility])Listeria monocytogenesNot DetectedNot Gkflpayp96/19/2025 12:11 AM [facility] [[email or web address] LAB ([facility]) Staphylococcus spp.Detected(AA)Not Rqzjxvij94/19/2025 12:11 AM [email or web address] LAB ([facility])Staphylococcus aureusNot DetectedNot Tqkotndl29/19/2025 12:11 AM [email or web address] LAB ([facility])Staphylococcus epidermidisNot Detected Not Ptimuutr92/19/2025 12:11 AM [email or web address] LAB ([facility])Staphylococcus lugdunensisDetected(AA)Not Eerzezdd93/19/2025 12:11 AM [email or web address] LAB ([facility])Streptococcus spp.Not DetectedNot Lobqdkjk19/19/2025 12:11 AM [email or web address] LAB ([facility])Streptococcus agalactiae (Group B)Not DetectedNot Qwgcodbs83/19/2025 12:11 AM [email or web address] LAB ([facility])Streptococcus pneumoniaeNot DetectedNot Lumhcokv88/19/2025 12:11 AM [email or web address] LAB ([facility])Streptococcus pyogenes (Group A)Not DetectedNot Jsfhqwqp39/19/2025 12:11 AM [email or web address] LAB ([facility])Acinetobacter calcoaceticus-baumannii complexNot DetectedNot Hbdngwgf25/19/2025 12:11 AM [facility] [[email or web address] LAB ([facility])Bacteroides fragilisNot DetectedNot Dmokjxsv48/19/2025 12:11 AM [facility] ([facility])EnterobacteralesNot DetectedNot Yubpfhdw12/19/2025 12:11 AM [email or web address] LAB ([facility])Enterobacter cloacae complexNot Detected Not Ebuljizh45/19/2025 12:11 AM [email or web address] LAB ([facility])Escherichia coli Not DetectedNot Qwekpsgs00/19/2025 12:11 AM [email or web address] LAB ([facility]) Klebsiella aerogenesNot DetectedNot Ctiuaecg70/19/2025 12:11 AM [email or web address] LAB ([facility])Klebsiella oxytocaNot DetectedNot Qgzsllwd35/19/2025 12:11 AM [email or web address] LAB ([facility])Klebsiella pneumoniae groupNot Detected Not Pgbmvwet88/19/2025 12:11 AM [email or web address] LAB ([facility])Proteus spp.Not DetectedNot Bvizbvun73/19/2025 12:11 AM [email or web address] ([facility]) Salmonella spp.Not DetectedNot Rgxzizny59/19/2025 12:11 AM [email or web address] LAB ([facility])Serratia marcescensNot DetectedNot Lqpaymlf02/19/2025 12:11 AM [facility] ([facility])Haemophilus influenzaeNot DetectedNot Detected 06/06/2025 12:11 AM [email or web address] LAB ([facility])Neisseria meningitidisNot DetectedNot Bbcvfnsz91/19/2025 12:11 AM [facility] [[email or web address]] LAB ([facility]) Pseudomonas aeruginosaNot DetectedNot Ndqxgfxp79/19/2025 12:11 AM [facility] [[email or web address] LAB ([facility])Stenotrophomonas maltophiliaNot DetectedNot Detected 06/06/2025 12:11 AM [facility] [[email or web address] LAB ([facility])Annette albicansNot Detected Not Lvinkneu73/19/2025 12:11 AM [facility] [[email or web address] LAB ([facility])Annette aurisNot DetectedNot Cewxybmn56/19/2025 12:11 AM [facility] [[email or web address] LAB ([facility])Annette glabrataNot DetectedNot Yswgsbyl17/19/2025 12:11 AM [facility] [[email or web address] LAB ([facility])Annette kruseiNot DetectedNot Ohtkuntr77/19/2025 12:11 AM [facility] [[email or web address] LAB ([facility])Annette parapsilosisNot DetectedNot Zwzvuxli10/19/2025 12:11 AM [facility] [[email or web address] LAB ([facility])Annette tropicalisNot DetectedNot Yljfsomz51/19/2025 12:11 AM [facility] [[email or web address] LAB ([facility])Cryptococcus neoformans/gattiiNot DetectedNot Iteudsqg05/19/2025 12:11 AM [facility] [[email or web address] LAB ([facility])mecA/CNot DetectedNot Dmnpjuxp46/19/2025 12:11 AM [facility] [[email or web address] LAB ([facility])Specimen (Source)Anatomical Location / LateralityCollection Method / VolumeCollection TimeReceived TimeBloodVenous blood specimen / Unknown Venipuncture / Yuschuz5106/05/2025 1:39 AM EST06/05/2025 1:44 AM EST Narrative [facility] [[email or web address] LAB ([facility]) - 06/06/2025 12:11 AM EST The BioFire BCID2 is a multiplexed nucleic acid test intended for simultaneous qualitative detection and identification of multiple bacterial and yeast nucleic acids and selected genetic determinants associated with antimicrobial resistance. Note: Antimicrobial resistance can occur via multiple mechanisms. A Not Detected result for antimicrobial resistance gene(s) does not indicate antimicrobial susceptibility. Subculturing is requiredfor species identification and susceptiblity testing of isolates. Note: All BIOFIRE BCID2 Panel results are intended to be interpreted in conjunction with Gram stainresults. In some cases, the Gram stain result and the BIOFIRE BCID2 Panel result may be discrepant.In these cases, the BIOFIRE BCID2 Panel results should be confirmed, e.g., by culture or other laboratory, epidemiological, or clinical findings. Blood culture media may contain non- viable organisms and/or nucleic acids that may lead to false positive BIOFIRE BCID2 Panel results. Typically, these false positives present with more than one positive result from the BIOFIRE BCID2 Panel. Authorizing ProviderResult TypeResult StatusIdrees Adam MURRAY MICROBIOLOGY - GENERAL ORDERABLESFinal ResultPerforming OrganizationAddressCity/State/ZIP CodePhone Number [facility] [[email or web address] LAB ([facility]) [address] [place] [address] * (ABNORMAL) CBC auto differential (06/05/2025 1:38 AM EST)ComponentValueRef RangeTest MethodAnalysis TimePerformed AtPathologist SignatureAuto WBC9.664.00 - 10.60 10*3/uL06/05/2025 1:55 AM [facility] [[email or web address] LAB ([facility])RBC3.03(L)4.20 - 5.70 10*6/uL06/05/2025 1:55 AM [facility] [[email or web address] LAB ([facility])Hemoglobin9.1(L) 13.0 - 17.0 g/dL06/05/2025 1:55 AM [facility] [[email or web address] LAB ([facility])Oqthklvnav32.4 (L)39.0 - 50.0 %06/05/2025 1:55 AM [facility] [[email or web address] LAB ([facility])MCV90.482.0 - 98.0 fL06/05/2025 1:55 AM [facility] [[email or web address] LAB ([facility])MCH30.027.0 - 33.0 pg 06/05/2025 1:55 AM [facility] [[email or web address] LAB ([facility])MCHC33.232.0 - 35.0 g/dL 06/05/2025 1:55 AM [facility] [[email or web address] LAB ([facility])RDW15.1(H)11.5 - 15.0 % 06/05/2025 1:55 AM [facility] [[email or web address] LAB ([facility])Neutrophils %74.2(H)40.0 - 72.0 %06/05/2025 1:55 AM [facility] [[email or web address] LAB ([facility])Lymphocytes %13.9(L)20.0 - 45.0 %06/05/2025 1:55 AM [facility] [[email or web address] LAB ([facility])Monocytes %10.85.0 - 12.0 %06/05/2025 1:55 AM [facility] [[email or web address] LAB ([facility])Eosinophils %0.30.0 - 6.0 %06/05/2025 1:55 AM [facility] [[email or web address] LAB ([facility])Basophils %0.20.0 - 1.0 % 06/05/2025 1:55 AM [facility] [[email or web address] LAB ([facility])Neutrophils Absolute7.171.60 - 7.60 10*3/uL06/05/2025 1:55 AM [facility] [[email or web address] LAB ([facility])Lymphocytes Absolute1.341.20 - 4.00 10*3/uL06/05/2025 1:55 AM [facility] [[email or web address] LAB ([facility])Monocytes Absolute1.04(H)0.10 - 1.00 10*3/uL06/05/2025 1:55 AM [facility] [[email or web address] LAB ([facility])Eosinophils Absolute0.030.00 - 0.50 10*3/uL06/05/2025 1:55 AM [facility] [[email or web address] LAB ([facility])Basophils Absolute0.020.00 - 0.20 10*3/uL 06/05/2025 1:55 AM [facility] [[email or web address] LAB ([facility])Romevlnqx518995 - 400 10*3/uL 06/05/2025 1:55 AM [facility] ([facility])nRBC %0.00 %06/05/2025 1:55 AM [facility] ([facility])Immature Granulocytes %0.60.0 - 1.0 %06/05/2025 1:55 AM [facility] ([facility])Immature Granulocytes Absolute0.060.00 - 0.20 10*3/uL06/05/2025 1:55 AM [facility] ([facility])Specimen (Source) Anatomical Location / LateralityCollection Method / VolumeCollection Time Received TimeBloodVenous blood specimen / UnknownVenipuncture / Unknown 06/05/2025 1:38 AM EST06/05/2025 1:45 AM EST Narrative Authorizing ProviderResult TypeResult StatusIdrees Adam MURRAY BLOOD ORDERABLESFinal ResultPerforming OrganizationAddressCity/State/ZIP CodePhone Number [facility] [[email or web address]] LAB ([facility]) [address] [place] [address] * (ABNORMAL) Magnesium (06/05/2025 1:38 AM EST)ComponentValueRef RangeTest MethodAnalysis TimePerformed AtPathologist SignatureMagnesium1.5(L)1.9 - 2.7 mg/dL06/05/2025 2:12 AM [facility] [[email or web address] LAB ([facility])Specimen (Source) Anatomical Location / LateralityCollection Method / VolumeCollection Time Received TimeBloodVenous blood specimen / UnknownVenipuncture / Unknown 06/05/2025 1:38 AM EST06/05/2025 1:45 AM EST Narrative Authorizing ProviderResult TypeResult StatusIdrees Adam MURRAY BLOOD ORDERABLESFinal ResultPerforming OrganizationAddressCity/State/ZIP CodePhone Number [facility] [[email or web address]] LAB ([facility]) [address] [place], [place] [id number] * (ABNORMAL) Protime-INR (06/05/2025 1:38 AM EST)ComponentValueRef RangeTest MethodAnalysis TimePerformed AtPathologist QnkuxvqhbHvsenhh32.5(H)12.3 - 14.8 Uleuuis8706/05/2025 2:05 AM [facility] [[email or web address]] LAB ([facility])INR1.22(H)0.90 - 1.10 06/05/2025 2:05 AM [facility] [[email or web address]] LAB ([facility])Comment: [facility] RECOMMENDED INR FOR WARFARIN THERAPY CONDITION ?INR PROPHYLAXIS OF VENOUS THROMBOSIS ? 2-3 (HIGH-RISK SURGERY) TREATMENT OF VENOUS THROMBOSIS ? 2-3 TREATMENT OF PULMONARY EMBOLISM ?2-3 PREVENTION OF SYSTEMIC EMBOLISM: ? 2-3 ?ACUTE MYOCARDIAL INFARCTION ?TISSUE HEART VALVES ?VALVULAR HEART DISEASE ?ATRIAL FIBRILLATION ?RECURRENT SYSTEMIC EMBOLISM MECHANICAL HEART VALVE ? 2.5-3.5 FROM: ORAL ANTICOAGULANTS. ??MECHANISM OF ACTION, CLINICAL EFFECTIVENESS, AND OPTIMAL THERAPEUTIC RANGE. ??CHEST 1995;108:231S-246S. Specimen (Source)Anatomical Location / LateralityCollection Method / Volume Collection TimeReceived TimeBloodVenous blood specimen / UnknownVenipuncture / Zrgidkk6406/05/2025 1:38 AM EST06/05/2025 1:44 AM EST Narrative Authorizing ProviderResult TypeResult StatusIdrees Adam [facility] BLOOD ORDERABLESFinal ResultPerforming OrganizationAddressCity/State/ZIP CodePhone Number [facility] [[email or web address]] LAB ([facility]) [address] [place] [address] * (ABNORMAL) APTT (06/05/2025 1:38 AM EST)ComponentValueRef RangeTest Method Analysis TimePerformed AtPathologist NqonwcinhbMKH02.0(H)25.0 - 35.0 Seconds 06/05/2025 2:06 AM [facility] [[email or web address]] LAB ([facility])Comment:Clinical significance of the APTT is questionable in the presence of heparin.Specimen (Source) Anatomical Location / LateralityCollection Method / VolumeCollection Time Received TimeBloodVenous blood specimen / UnknownVenipuncture / Unknown 06/05/2025 1:38 AM EST06/05/2025 1:44 AM EST Narrative Authorizing ProviderResult TypeResult StatusIdrees Adam [facility] BLOOD ORDERABLESFinal ResultPerforming OrganizationAddressty/State/ZIP CodePhone Number [facility]) [address] [place] [address] * (ABNORMAL) Comprehensive metabolic panel (06/05/2025 1:38 AM EST)Component ValueRef RangeTest MethodAnalysis TimePerformed AtPathologist SignatureSodium 127(L)136 - 145 mmol/L108/05/2024 2:12 AM [facility] [[email or web address]] LAB ([facility]) Potassium4.23.5 - 5.1 mmol/L108/05/2024 2:12 AM [facility] [[email or web address] LAB ([facility]) Qcpwglrw26444 - 107 mmol/L108/05/2024 2:12 AM [facility] [[email or web address] LAB ([facility])CO2 19(L)21 - 31 mmol/L108/05/2024 2:12 AM [facility] [[email or web address] LAB ([facility])Anion Gap11 7 - 20 mmol/L108/05/2024 2:12 AM [facility] [[email or web address] LAB ([facility])BUN27(H)7 - 25 mg/dL06/05/2025 2:12 AM [facility] [[email or web address] LAB ([facility])Creatinine1.000.70 - 1.30 mg/dL06/05/2025 2:12 AM [facility] [[email or web address] LAB ([facility])BUN/Creatinine Ratio27.0 06/05/2025 2:12 AM [facility] [[email or web address] LAB ([facility])Wtjhgao904(H)70 - 100 mg/dL 06/05/2025 2:12 AM [facility] [[email or web address] LAB ([facility])Calcium8.5(L)8.6 - 10.3 mg/dL 06/05/2025 2:12 AM [facility] [[email or web address] LAB ([facility])AST96(H)13 - 39 U/L108/05/2024 2:12 AM [facility] [[email or web address] LAB ([facility])ALT (SGPT)487 - 52 U/L108/05/2024 2:12 AM [facility] [[email or web address] LAB ([facility])Alkaline Icfpuelwire0497 - 104 U/L108/05/2024 2:12 AM [facility] [[email or web address] LAB ([facility])Total Protein6.96.0 - 8.3 g/dL06/05/2025 2:12 AM [facility] [[email or web address] LAB ([facility])Albumin3.2(L)3.5 - 5.7 g/dL06/05/2025 2:12 AM [facility] [[email or web address] LAB ([facility])Total Bilirubin0.50.3 - 1.0 mg/dL06/05/2025 2:12 AM [facility] [[email or web address] LAB ([facility])eGFR81.5>60.0 mL/min/1.73m* 2:12 AM [facility] [[email or web address]] LAB ([facility])Comment:The [facility]???s estimated glomerular filtration rate (eGFR) will [...] TimeBloodVenous blood specimen / Unknown Venipuncture / Cxslcxl5606/05/2025 1:38 AM EST06/05/2025 1:45 AM EST Narrative Authorizing ProviderResult TypeResult StatusIdrees Adam MURRAY BLOOD ORDERABLESFinal ResultPerforming OrganizationAddressCity/State/ZIP CodePhone Number [facility] [[email or web address]] LAB ([facility]) [address] [place] [address] documented in this encounter Visit Diagnoses Diagnosis Bacteremia- Primary Bacteremia Valvular endocarditis Endocarditis, valve unspecified, unspecified cause Benign essential hypertension Essential hypertension, benign Cardiomyopathy (CMS/HCC) Other primary cardiomyopathies 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 Heart failure with reduced ejection fraction (CMS/HCC) ICD (implantable cardioverter-defibrillator) in place Paroxysmal atrial fibrillation (CMS/HCC) Atrial fibrillation Pericardial effusion Unspecified disease of pericardium Hyponatremia Hyposmolality and/or hyponatremia Hypomagnesemia Disorders of magnesium metabolism Elevated LFTs Other abnormal blood chemistry Chronic anemia Unspecified anemia Moderate protein-calorie malnutrition Valvular endocarditis Endocarditis, valve unspecified, unspecified cause Acute bacterial endocarditis Acute and subacute bacterial endocarditis Sepsis due to Staphylococcus (CMS/HCC) Infection involving implantable cardioverter-defibrillator (ICD) documented in this encounter Admitting Diagnoses Diagnosis Bacteremia Valvular endocarditis Endocarditis, valve unspecified, unspecified cause documented in this encounter Administered Medications Medication OrderMAR ActionAction DateDoseRateSite allopurinol (Zyloprim) tablet 300 mg 300 mg, oral, Daily, First dose on Wed06/05/25 at 1000, For 99 days Given06/06/2025 9:19 AM RMG333 cvHedvd7206/05/2025 9:06 AM DAU033 mg aspirin chewable tablet 81 mg 81 mg, oral, Daily with breakfast, First dose on Wed06/05/25 at 0800, For 99 days Given06/06/2025 9:19 AM EST81 mg atorvastatin (Lipitor) tablet 40 mg 40 mg, oral, Nightly, First dose on Wed06/05/25 at 2200, For 99 days Given06/05/2025 8:09 PM EST40 mg ceFAZolin in dextrose (iso-os) (Ancef) IVPB 2 g 2 g, intravenous, at 100 mL/hr, Administer over 30 Minutes, Every 8 hours, First dose on Wed06/05/25 at 0500, For 1081 hours, Duplex bag - activate before hanging., Suspected Indication (Select all that apply): Bacteremia New Bag06/06/2025 5:20 AM EST2 g100 mL/hrNew Bag06/05/2025 8:10 PM EST2 g100 mL/hrNew Bag06/05/2025 12:58 PM EST2 g100 mL/hr colchicine tablet 0.6 mg 0.6 mg, oral, Daily, First dose on Wed06/05/25 at 1000, For 99 days Given06/06/2025 9:19 AM EST0.6 jjYseyq1206/05/2025 9:06 AM EST0.6 mg heparin (porcine) injection 5,000 Units 5,000 Units, subcutaneous, 3 times daily, First dose on Wed06/06/25 at 1245, For 99 days metoprolol succinate XL (Toprol-XL) 24 hr split tablet 12.5 mg 12.5 mg, oral, Once Daily, First dose on Wed06/05/25 at 0900, For 99 days Given06/06/2025 9:19 AM EST12.5 ccSvxib8506/05/2025 9:06 AM EST12.5 mg mometasone-formoterol (Dulera 100) 100-5 mcg/actuation inhaler 1 puff 1 puff, inhalation, 2 times daily RT, First dose on Wed06/05/25 at 0800, Rinse mouth with water after use to reduce aftertaste and incidence of candidiasis. Do not swallow. Given06/06/2025 8:00 AM EST1 ayfkLbxjx79/18/2025 8:09 PM EST1 puffGiven 06/05/2025 8:00 AM EST1 puff sodium chloride flush 10 mL 10 mL, intravenous, Every 8 hours PRN, line care, Starting on Wed06/05/25 at 0106, For 99 days Medication OrderMAR ActionAction DateDoseRateSite fentaNYL (Sublimaze) injection As needed, Starting on Wed06/05/25 at 1014, Intraprocedure Given06/05/2025 10:16 AM EST25 ypvHpzpi06/18/2025 10:14 AM EST25 mcg lidocaine (Xylocaine) 2 % mouth solution Mouth/Throat, As needed, Procedure Medication, Starting on Wed06/05/25 at 1002, Intraprocedure Given06/05/2025 10:02 AM EST15 mL magnesium oxide (Mag-Ox) tablet 400 mg 400 mg, oral, Every 8 hours, First dose on Wed06/05/25 at 0430, For 3 doses Given06/05/2025 8:09 PM XUS923 zfTmcts8906/05/2025 12:58 PM QIL099 mgGiven 06/05/2025 4:56 AM KAB636 mg midazolam (Versed) injection As needed, Starting on Wed06/05/25 at 1014, Intraprocedure Given06/05/2025 10:15 AM EST1 tpPdoct9306/05/2025 10:14 AM EST2 mg sodium chloride 0.9 % infusion Continuous PRN, Starting on Wed06/05/25 at 0948, Intraprocedure New Bag06/05/2025 9:48 AM EST20 mL/hr20 mL/hrdocumented in this encounter Active and Recently Administered Medications Times are shown in EST.Medication Order/ allopurinol (Zyloprim) tablet 300 mg 300 mg, oral, Daily, First dose on Wed06/05/25 at 1000, For 99 days * 0906 (Given - Provider: Kelly Nuno RN) * 0919 (Given - Provider: Kelly Nuno RN) aspirin chewable tablet 81 mg 81 mg, oral, Daily with breakfast, First dose on Wed06/05/25 at 0800, For 99 days * 0724 (Held by provider - Provider: Lauren Topete MD - Reason: Change in vital signs) * 0800 (Dose Auto Held) * 1120 (Unheld by provider - Provider: Kathya Curry MD) * 0919 (Given - Provider: Kelly Nuno RN) atorvastatin (Lipitor) tablet 40 mg 40 mg, oral, Nightly, First dose on Wed06/05/25 at 2200, For 99 days * 2008 (Given - Provider: Kelly Torres) * 2199 (Due) ceFAZolin in dextrose (iso-os) (Ancef) IVPB 2 g 2 g, intravenous, at 100 mL/hr, Administer over 30 Minutes, Every 8 hours, First dose on Wed06/05/25 at 0500, For 1081 hours, Duplex bag - activate before hanging., Suspected Indication (Select all that apply): Bacteremia * 0456 (New Bag - Provider: Cintia Eaton RN) * 0526 (Stopped - Provider: Cintia Eaton RN) * 1258 (New Bag - Provider: Kelly Nuno RN) * 1328 (Stopped - Provider: Kelly Nuno RN) * 2009 (New Bag - Provider: Kelly Torres) * 2039 (Stopped - Provider: Riya Natarajan, RN) * 0520 (New Bag - Provider: Riya Natarajan RN) * 0550 (Stopped - Provider: Riya Natarajan RN) * 1300 (Due) * 2100 (Due) clopidogrel (Plavix) tablet 75 mg 75 mg, oral, Daily, First dose on Wed06/05/25 at 1000, For 99 days, On hold since Wed06/05/2025 at 0724 until manually unheld * 0724 (Held by provider - Provider: Lauren Topete MD - Reason: Change in vital signs) * 1000 (Dose Auto Held) * 1000 (Dose Auto Held) colchicine tablet 0.6 mg 0.6 mg, oral, Daily, First dose on Wed06/05/25 at 1000, For 99 days * 0906 (Given - Provider: Kelly Nuno RN) * 0919 (Given - Provider: Kelly Nuno RN) heparin (porcine) injection 5,000 Units 5,000 Units, subcutaneous, 3 times daily, First dose on Wed06/06/25 at 1245, For 99 days * 1245 (Due) * 1600 (Due) * 2200 (Due) magnesium oxide (Mag-Ox) tablet 400 mg (COMPLETED) 400 mg, oral, Every 8 hours, First dose on Wed06/05/25 at 0430, For 3 doses * 0456 (Given - Provider: Cintia Eaton RN) * 1258 (Given - Provider: Kelly Nuno RN) * 2008 (Given - Provider: Kelly Torres) metoprolol succinate XL (Toprol-XL) 24 hr split tablet 12.5 mg 12.5 mg, oral, Once Daily, First dose on Wed06/05/25 at 0900, For 99 days * 0906 (Given - Provider: Kelly Nuno RN) * 0919 (Given - Provider: Kelly Nuno RN) mometasone-formoterol (Dulera 100) 100-5 mcg/actuation inhaler 1 puff 1 puff, inhalation, 2 times daily RT, First dose on Wed06/05/25 at 0800, Rinse mouth with water after use to reduce aftertaste and incidence of candidiasis. Do not swallow. * 0800 (Given - Provider: Kelly Nuno RN) * 2008 (Given - Provider: Kelly Torres) * 0800 (Given - Provider: Kelly Nuno RN) * 1999 (Due) Medication Order// acetaminophen (Tylenol) tablet 650 mg 650 mg, oral, Every 6 hours PRN, mild pain (1-3 pain score), (1-3), Starting on Wed06/05/25 at 0111, For 99 days fentaNYL (Sublimaze) injection (COMPLETED) As needed, Starting on Wed06/05/25 at 1014, Intraprocedure * 1014 (Given - Provider: Angelique Alonzo RN) * 1016 (Given - Provider: Angelique Alonzo RN) lidocaine (Xylocaine) 2 % mouth solution (COMPLETED) Mouth/Throat, As needed, Procedure Medication, Starting on Wed06/05/25 at 1002, Intraprocedure * 1002 (Given - Provider: Angelique Alonzo RN) melatonin tablet 5 mg 5 mg, oral, Nightly PRN, sleep, Starting on Wed06/05/25 at 0111, For 99 days midazolam (Versed) injection (COMPLETED) As needed, Starting on Wed06/05/25 at 1014, Intraprocedure * 1014 (Given - Provider: Angelique Alonzo RN) * 1015 (Given - Provider: Angelique Alonzo RN) sodium chloride 0.9 % infusion (COMPLETED) Continuous PRN, Starting on Wed06/05/25 at 0948, Intraprocedure * 0948 (New Bag - Provider: Angelique Alonzo, RN) * 1130 (Stopped - Provider: Kelly Nuno RN) sodium chloride flush 10 mL(Linked Group 1) 10 mL, intravenous, Every 8 hours PRN, line care, Starting on Wed06/05/25 at 0106, For 99 days Order Group 1: Insert peripheral IV Once, On Wed06/05/25 at 0107, For 1 occurrence And Saline lock IV Once, On Wed06/05/25 at 0107, For 1 occurrence And sodium chloride flush 10 mLJump to med 10 mL, intravenous, Every 8 hours PRN, line care, Starting on Wed06/05/25 at 0106, For 99 days documented in this encounter Care Teams Team MemberRelationshipSpecialtyStart DateEnd Date Rudy King MD [address] [place] [address] PCP - Prlhebx79/16/22documented as of this encounter
--- NOTE | 2025-06-05 07:22 | P.DS_ITS ---
DS: Providers Provider Date of admission: 05/31/25 18:02 Primary care physician: Rudy Guerra MD Consults: 05/31/25 Consult to Dietitian Routine Reason for consultation: poor appetite 06/01/25 Physical Therapy Eval and Treat Routine Reason for consultation: weakness 06/04/25 11:18 Consult to Cardiology Routine Reason for consultation: Staph bacteremia, need MASON rule out endocarditis as per ID recommendation DS: Diagnosis Discharge Diagnosis (1) Bacteremia due to Staphylococcus: (2) LINDA (acute kidney injury): (3) Generalized weakness: (4) Acute metabolic encephalopathy: (5) Poor appetite: (6) History of CHF (congestive heart failure): (7) Pericardial effusion: (8) Dehydration: (9) PVC (premature ventricular contraction): (10) Post ICU syndrome: (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 Doherty is a 69-year-old gentleman who came in with fatigue, weakness and multiple other nonspecific symptoms. He was found to have the following: Staph lugdunensis bacteremia Continue Ancef Repeat blood cultures pending No vegetation seen on echo The source is unknown. I discussed this case with infectious disease specialist Dr. Barger Repeat blood culture also is coming back positive for staph. He recommended MASON. I discussed this case with online community manager Dr. Denney. She is in agreement. I discussed his case with his and stepdaughter. Both are in agreement to transfer patient to [facility] for MASON to rule out endocarditis and also to investigate whether he has pacemaker/AICD lead infection. Patient will be seen at [facility] by infectious disease specialist. Additional needed diagnostic and therapeutic invention will need to be done to get to the bottom of this. LINDA Resolved Likely hemodynamically mediated in the setting of acute sepsis and bacteremia. Cardiomyopathy Patient is in a euvolemic state Continue Toprol. Reintroduce diuretics, MRA and SGLT 1 when appropriate Patient was not on ARNI prior to admission. Elevated liver enzyme Could be related to sepsis Normal bilirubin Could be related to statin. Hold Lipitor Monitor LFTs. Ultrasound of the liver in a.m. this was not completed as patient was transferred to [facility] prior to this being done. This will need to be done at [facility]. Alternatively, patient may need to be seen by GI/hepatology at [facility] Anemia, no evidence of acute blood loss. Hemoglobin drop could be related to aggressive hydration of the last 48 hours. Patient will likely require to have anemia workup to be done in the outpatient setting to be handled by PCP in collaboration with other needed outpatient providers. This may include but not limited to EGD, colonoscopy, referral to see hematology and other needed age-appropriate cancer screening. Chronic, subacute medical conditions not listed above, abnormal labs and imaging, incidental findings seen on labs and or imaging. These would need to be addressed. Could be addressed later on or in the outpatient setting by PCP collaboration with other needed outpatient providers when time and condition are appropriate. Time Spent with Patient Time attestation: Total time spent providing and/or coordinating discharge services: Time spent: greater than 30 minutes Exam Constitutional Vital Signs, click to edit/add: Last Vital Signs Temp 98.3 F 06/04/25 19:36 Pulse 117 H 06/04/25 22:00 Resp 16 06/04/25 20:24 BP 114/75 06/04/25 19:36 Pulse Ox 94 L 06/04/25 20:24 O2 Del Method Room Air 06/04/25 20:24 DS: Data Data Completed and Pending Labs on day of discharge: Labs from last 24 hours 06/04/25 06/03/25 05:05 07:21 Iron 32.0 L TIBC 134.0 L % Saturation 23.9 Ferritin 904.0 H Cortisol AM Sample 7.9 Preliminary micro results at discharge 06/02/25 11:14 Blood Culture Result 1 - Preliminary Blood - Left Antecubital 06/02/25 11:21 Blood Culture Result 2 - Preliminary Blood - Left Hand 06/01/25 12:28 Blood Culture Result 2 - Preliminary Blood - Right Wrist 06/01/25 12:12 Blood Culture Result 1 - Preliminary Blood - Left Antecubital Discharge Plan Discharge Disposition: [facility] Condition: Fair Discharge Date/Time: 06/04/25 23:15 Discharge Location: [facility]
--- OUTSIDE RECORDS SUMMARY | 2025-06-06 12:44 | XMS_ITS | Clinical Summary ---
Author Organization [facility] Healthcare Address [address] [place] [address] Care Team Providers Care Meat Service Team Member Name Role Phone Rudy Guerra MD Primary Care Provider [phone] Allergies No known active allergies Medications MedicationSigDispense [...] up with cardiology. Allergic rhinitis due to iwlbor5703/02/2023 Assessment & Plan (07/22/2023 3:39 PM EST): Symptoms controlled with medication and continue. Chronic mjahoyvazwgd04/15/2023Nasal polyp03/02/2023ICD (implantable cardioverter-defibrillator) in place09/15/2022 Overview (03/02/2023): Last Assessment & Plan: No DFT since implantation RTC q 6 months of device interrogation and pt is due for interrogation this coming march Nonischemic vzngbyxxoaogcx61/14/2023 Overview (03/02/2023): Added automatically from request for surgery [id number] Last Assessment & Plan: As above Seasonal allergic tgyterfs68/13/2023epressive vcohjcou76/13/2023yslipidemia 08/31/2022 Overview (03/02/2023): Last Assessment & Plan: Continue statin Moybzifafrv39/13/2023Steatosis of liver08/31/2022Vitamin D kzgjxgetki07/13/2023 Chronic HFrEF (heart failure with reduced ejection [...] up with cardiology. Coronary artery disease involving [place] coronary artery of [place] heart without angina svycelyw67/19/2022 Overview (03/02/2023): Last Assessment & Plan: Coronary artery disease is stable Continue GDMT- ASA lipitor and toprol- Pt tolerating cardiac rehab well andstates he has 1 more week of rehab continue risk factor modifications- heart healthy diet, regular exercise as tolerated and continue all medications. Mild persistent asthma without tasipuxttxri69/11/2013 Assessment & Plan (12/12/2024 9:02 PM EDT): No SOB and continue advair. Use albuterol PRN. Assessment & Plan (07/22/2023 3:40 PM EST): No SOB and continue advair. Use albuterol PRN. Benign essential yidxsyqzfaxr16/09/2011 Assessment & Plan (12/12/2024 9:02 PM EDT): BP controlled and monitor PRN. Assessment & Plan (07/22/2023 3:39 PM EST): BP controlled and monitor PRN. Wnowjkfltvqhba74/15/2008Malignant tumor of lisuapkp77/15/2008 Resolved Problems ProblemNoted DateDiagnosed DateResolved DateChronic ajexzovo63 History of malignant neoplasm of zmbsexon63Hypertension Overview (03/02/2023): Last Assessment & Plan: Hypertension is well controlled Continue all meds Renal function has been stable Zxfamqwvdzkjla12New onset of congestive heart failure Overview (03/02/2023): [...] complexes he may no BiV ICD -continue bsnbnqPM70bb, entresto 24-, will add medications pending echo Syncope and dabzgqil21 Overview (03/02/2023): Added automatically from request for surgery [id number] Immunizations ImmunizationAdministration DatesNext ZafTMA64/14/2022Pfizer Purple Cap SARS-CoV-2 Iacigdplldf18/26/2021,2020 Family History Medical HistoryRelationNameCommentsCOPDFatherDiabetesMotherHeart diseaseMother StrokeMotherHeart diseaseSiblingRelationNameStatusCommentsFatherDeceasedMother DeceasedSibling Social History Tobacco UseTypesPacks/DayYears UsedDateSmoking Tobacco: NeverSmokeless Tobacco: CurrentChew Tobacco Cessation:Ready to Q uit: Not Asked; Counseling Given: Not Answered Alcohol UseStandard Drinks/WeekCommentsYes6 (1 standard drink = 0.6 oz pure alcohol)caffeine intake: 1-2 cups per day of coffee/teaPHQ-2AnswerDate Recorded Patient Health Questionnaire-2 Owlfe728Sex and Gender InformationValue Date RecordedSex Assigned at BirthNot on fileLegal HhjIccu9309/30/2022 6:42 PM EDT Gender IdentityNot on fileSexual OrientationNot on file Last Filed Vital Signs Vital SignReadingTime TakenCommentsBlood Xmsoesnr281/3407 11:01 AM EDT Iyehu9343 11:01 AM MSWHpivpmemhjt58.6 ??C (97.8 ??F)12/12/2024 3:08 PM EDTRespiratory Xggu977912/12/2024 3:08 PM EDTOxygen Opwnormfjh37%12/12/2024 3:08 PM EDTInhaled Oxygen Concentration--Psvzwx28.3 kg (188 lb)02/05/2025 11:01 AM RZENdfyyi170.7 cm (5' 8 )02/05/2025 11:01 AM EDTBody Mass Index28.5907 11:01 AM EDT Plan of Treatment Not on file Insurance * Guarantor: Manas DohertyAccount TypeRelation to PatientDate of BirthPhone Billing AddressPersonal/UyddhrZcfi65/04/1956 [facility] [address] [address] Care Teams Team MemberRelationshipSpecialtyStart DateEnd Date Naderer, Rudy, MD PCP - GeneralFami Medicine01/17/24
--- OUTSIDE RECORDS SUMMARY | 2025-06-06 12:44 | XMS_ITS | Encounter Summary ---
Author Organization [facility] Address [address] [place] [address] Care Team Providers Care Typing Bookkeeper Name Role Phone Rudy Guerra MD Primary Care Provider [phone] Encounter Details DateTypeDepartmentCare Team (Latest Contact Info)Pvoxhzwkyyj24/18/2025Travel Social History Tobacco UseTypesPacks/DayYears UsedDateSmoking Tobacco: FormerCigarettes Smokeless Tobacco: NeverAlcohol UseStandard Drinks/IjulGdbhrsncTvl04 (1 standard drink = 0.6 oz pure [...] RecordedIn the past 12 months has the Your.MD, gas, oil, or water [employer] threatened to shut off services in your [...] were you homeless or living in a care home (including now)? No06/05/2025Hunger Vital SignAnswerDate RecordedWithin the past 12 months, you worried that your food would run out before you got the money to buymore.Never true06/05/2025Ran Out of Food in the Last YearNot on file06/05/2025Sex and Gender InformationValueDate RecordedSex Assigned at SzkffQloe35/06/2025 8:51 AM EDTLegal BxjKnlh3201/14/2022 10:53 PM EDTGender UvnzlnrlNzqm60/06/2025 8:51 AM EDT Sexual OrientationHeterosexual or Ejjlhmud43/06/2025 8:51 AM EDTdocumented as of this encounter Functional Status * QuestionAnswerDate of CifstqiuwjDkrcwpMK242/6306/05/2025 8:14 PM Riya Garcia RNPulse10306/05/2025 8:14 PM Riya Garcia RNHeart Rate Source Mltdnpi9106/05/2025 11:28 AM Kelly Fernandez RNPatient VvekdraaUocmr68/18/2025 11:28 AM Kelly Fernandez RN * Sherman Fall RiskQuestionAnswerDate of AssessmentAuthorHistory of Falling, Immediate or Within 3 Cuflra351 9:10 PM Riya Garcia RNSecondary Awcixzwzs9031/18/2025 9:10 PM Riya Garcia RNAmbulatory Blt226608/05/2024 9:10 PM Riya Garcia RNIntravenous Therapy/Heparin Bcmj114608/05/2024 9:10 PM Riya Garcia RNGait/Wieanbufpkga8045/18/2025 9:10 PM Riya Garcia RNMental Yrxvdk289/18/2025 9:10 PM Riya Garcia RNMorse Fall Risk Tblxx557906/05/2025 9:10 PM Riya Garcia RN * Christiano ScaleQuestionAnswerDate of AssessmentAuthorBraden No Risk Interventions Continue to assess patient according to level of care06/05/2025 9:10 PM EST Riya Natarajan RNSensory Vbmhodimbgk671/18/2025 9:10 PM Riya Garcia RN Tubgygtx808/18/2025 9:10 PM Riya Garcia, JMCnpsqvwq862/18/2025 9:10 PM Riya Garcia UEHsvyeycd788/18/2025 9:10 PM Riya Garcia RN Ohhxystxv076/18/2025 9:10 PM Riya Garcia, RNFriction and Shear3 06/05/2025 9:10 PM Riya Garcia RN * Christiano Scale ScoreAnswerDate of DgmgwywrpfDcpgvs3084/18/2025 9:10 PM Riya Camp RN * [place] Fall Risk InterventionsQuestionAnswerDate of AssessmentAuthor [place] Fall Risk ItbxrazkzquuiXpnryjsv90/18/2025 9:10 PM Riya Garcia RN * Pain Assessment TimerQuestionAnswerDate of AssessmentAuthorRestart Pain Assessment EftjfSpt51/18/2025 9:10 PM Riya Garcia RN * Sepsis Model ScoresQuestionAnswerDate of AssessmentAuthorEarly Detection of Sepsis Score2.32108/05/2024 11:46 PM ESTChronicles, BatchqEarly Detection of Sepsis Score8. 11:46 PM ESTChronicles, Batchq * Pain AssessmentQuestionAnswerDate of AssessmentAuthorPain Interventions Modkjvcw06/18/2025 9:10 PM Riya Garcia RNPatient's Stated Pain GoalNo pain06/05/2025 9:10 PM Riya Garcia RNPain AssessmentNo/denies pain 06/05/2025 9:10 PM Riya Garcia, SAL * Deterioration Index ScoreQuestionAnswerDate of AssessmentAuthorDeterioration Index Score41.8108/05/2024 11:46 PM ESTChronicles, Batchq * Head, Ears, Eyes, Nose, and Throat (HEENT)QuestionAnswerDate of Assessment AuthorHead, Ears, Eyes, Nose, and Throat (WDL)X108/05/2024 9:10 PM Riya Garcia RNR EyeMildly impaired bhiafn9306/05/2025 9:10 PM Riya Garcia RNL EyeMildly impaired cmfgze6406/05/2025 9:10 PM Riya Garcia RNR EarIntact 06/05/2025 12:47 AM Cintia Aden RNL WcoWxhlve11/18/2025 12:47 AM Cintia Weston RNTeethMissing teeth06/05/2025 9:10 PM Riya Garcia RN Head and GgfyCtdijvyoegx05/18/2025 12:47 AM Cintia Aden RNLips Symmetrical;Intact;Moist06/05/2025 12:47 AM Cintia Aden RN * QuestionAnswerDate of AssessmentAuthorMAP (mmHg)7706/05/2025 8:14 PM Riya Camp RN * Short Portable Mental StatusQuestionAnswerDate of AssessmentAuthorWhat are the date, month, year? 9:10 PM Riya Garcia RNWhat is the day of the week? 9:10 PM Riya Garcia RNWhat is the name of this place? 9:10 PM Riya Garcia RNWhat is your phone number?0 06/05/2025 9:10 PM Riya Garcia RNHow old are you? 9:10 PM Riya Garcia RNWhen were you born? 9:10 PM Riya Garcia RNWho is the current president? 9:10 PM Riya Garcia RNWho was the president before him? 9:10 PM Riya Garcia RNWhat was your mother's maiden name? 12:47 AM Cintia Aden RNCan you count backward from 20 by 3s? 9:10 PM Riya Garcia, RNShort Portable Mental Oqeen56708/05/2024 12:47 AM Cintia Aden RN * Fall Risk LevelQuestionAnswerDate of AssessmentAuthorMobility zoneLow (Green Zone)06/05/2025 9:10 PM Riya Garcia RNMorse fall risk zoneModerate (Yellow Zone)06/05/2025 9:10 PM Riya Garcia RNMental status questionaire zoneLow (Green Zone)06/05/2025 9:10 PM Riya Garcia RN * Skin Assessment Sign offQuestionAnswerDate of AssessmentAuthorDual Sign-off - Admission/TransferKBam Eaton RN06/05/2025 12:47 AM Cintia Aden, RNAny new wounds identified on admission/transfer?No06/05/2025 12:47 AM Cintia Aden RN * QuestionAnswerDate of NcmwogbunmPlgxqsQmJ79197/18/2025 8:14 PM Riya Garcia RN * QuestionAnswerDate of MpuznsuxtvZermbpBI078/6306/05/2025 8:14 PM Riya Garcia, FGJpha15. 11:28 AM Kelly Fernandez RNTemp srcTemporal 06/05/2025 11:28 AM Kelly Fernandez YWQcntw98978/18/2025 8:14 PM Riya Garcia TVQiht3926 8:14 PM Riya Garcia RNHeart Rate Source Nbyvvpb5906/05/2025 11:28 AM Kelly Fernandez RNBP LocationLeft arm06/05/2025 11:28 AM Kelly Fernandez RNBP DifpzlPgqbpvwph98/18/2025 11:28 AM Kelly Fernandez RNPulse rate from Plethysmogram (bpm)5244906/05/2025 8:14 PM Riya Garcia, RNPatient UylgkeoxGjlco43/18/2025 11:28 AM Kelly Fernandez RN * QuestionAnswerDate of AssessmentAuthorLevel of HmskidufqxpeeMcvga92/18/2025 9:10 PM Riya Garcia RNOrientation LevelOriented X4108/05/2024 9:10 PM Riya Garcia RNCognitionFollows fguyrlpm96/18/2025 9:10 PM Riya Garcia WUWagwhpVectt38/18/2025 9:10 PM Riya Garcia RNL Pupil Size (mm) Other (Comment)06/05/2025 5:00 PM ESTRFranc shaw Pupil Size (mm) 5:00 PM Kelly ArredondoSwallowAble to swallow solids and liquids without iijzyxkbsy93/18/2025 12:47 AM Cintia Aden RNR Hand GraspModerate 06/05/2025 5:00 PM ESTRank, KellyL Hand VsicpFcevrzja38/18/2025 5:00 PM EST Kelly TorresR Foot XyqeonmfrbvmSecqpnqa40/18/2025 5:00 PM ESTRank, EmilyL Foot AjjnocfsqbjbPaabqjjx37/18/2025 5:00 PM ESTRank, AzaliailyR Foot Plantar Flexion Vktaywoz33/18/2025 5:00 PM ESTRank, EmilyL Foot Plantar FlexionModerate 06/05/2025 5:00 PM ESTRcolin, AzaliailyNeuro ZfjbrouqPyxnoxm18/18/2025 5:00 PM Kelly RaglandHand Grasp/Motor Function/Sensation Assessment Grasp;Dorsiflexion;Plantar dbcsvwg5506/05/2025 12:47 AM Cintia Aden RN Facial MplqcyxuOqplzkscafg19/18/2025 12:47 AM Cintia Aden RN * QuestionAnswerDate of AssessmentAuthorCardiac VbzcvhZEV25/18/2025 9:10 PM Riya Camp RNEctopyPremature ventricular xrfvpdupitap80/18/2025 9:10 PM Riya Garcia RNEctopy AimrswlytVbwwmyuq42/18/2025 9:10 PM Riya Garcia RNTelemetry Monitor PtbyieMd80/18/2025 7:45 AM Kelly Fernandez electric 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 driver RnrmdkcjBwcj85/18/2025 9:10 PM Riya Garcia RNHeart SoundsOther (Comment)06/05/2025 5:00 PM Kelly Arredondo * QuestionAnswerDate of AssessmentAuthorPacemaker DaglMsypbckie36/18/2025 9:10 PM Riya Garcia RN * GastrointestinalQuestionAnswerDate of AssessmentAuthorPassing FlatusYes 06/05/2025 12:47 AM Cintia Aden RNAbdominal TendernessNo guarding;Pkolbxecu51/18/2025 12:47 AM Cintia Aden RNBowel Sounds (All Quadrants)Nxcsaekwfm78/18/2025 5:00 PM Kelly ArredondoGastrointestinal (WDL)WDL 06/05/2025 9:10 PM Riya Garcia RNAbdomen InspectionSoft;Nondistended 06/05/2025 12:47 AM Cintia Aden RNBowel UnympnaupfttRd12/18/2025 9:10 PM Riya Garcia RNBowel SoundsAll tnpcpcass76/18/2025 12:47 AM Cintia Weston RN * Peripheral VascularQuestionAnswerDate of AssessmentAuthorPeripheral Vascular (WDL)WDL108/05/2024 9:10 PM Riya Garcia RNCapillary RefillLess than/equal to 2 seconds (All extremities)06/05/2025 12:47 AM Cintia Aden RNPulsesRight radial;Left radial;Right pedal;Left pedal108/05/2024 9:10 PM Riya Garcia RNCyanosisNone108/05/2024 12:47 AM Cintia Aden RN * RUE Neurovascular AssessmentQuestionAnswerDate of AssessmentAuthorRight Radial Pulse+ 9:10 PM Riya Garcia RN * LUE Neurovascular AssessmentQuestionAnswerDate of AssessmentAuthorLeft Radial Pulse+ 9:10 PM Riya Garcia RN * RLE Neurovascular AssessmentQuestionAnswerDate of AssessmentAuthorRight Posterior Tibial Pulse+ 5:00 PM HUSSAINank, AzaliailyRight Pedal Pulse+2 06/05/2025 9:10 PM Riya Garcia RN * LLE Neurovascular AssessmentQuestionAnswerDate of AssessmentAuthorLeft Posterior Tibial Pulse+ 5:00 PM ESTRank, EmilyLeft Pedal Pulse+2 06/05/2025 9:10 PM Riya Garcia RN * MusculoskeletalQuestionAnswerDate of AssessmentAuthorMusculoskeletal (WDL)WDL 06/05/2025 9:10 PM Riya Garcia RN * PsychosocialQuestionAnswerDate of AssessmentAuthorPsychosocial (WDL)WDL 06/05/2025 9:10 PM Riya Garcia RN * QuestionAnswerDate of AssessmentAuthorUrine ColorYellow/straw06/05/2025 5:22 AM Astrid Joshua, PCTUrine VfytbnehruMjqos65/18/2025 5:22 AM Astrid Joshua, PCTUrine OdorNo odor06/05/2025 5:22 AM Astrid Joshua, PCT * Sherman Fall RiskQuestionAnswerDate of AssessmentAuthorHistory of Falling, Immediate or Within 3 Ddsvmz859 9:10 PM Riya Garcia RNSecondary Bfpjnerbx5304/18/2025 9:10 PM Riya Garcia, RNAmbulatory Ezr1907 9:10 PM Riya Garcia RNIntravenous Therapy/Heparin Vltd0432 9:10 PM Riya Garcia RNGait/Wmzwxznctzgq9851/18/2025 9:10 PM Riya Garcia RNMental Oxdgzs885/18/2025 9:10 PM Riya Garcia RNMorse Fall Risk Dkmvu024606/05/2025 9:10 PM Riya Garcia RN * Christiano ScaleQuestionAnswerDate of AssessmentAuthorBraden No Risk Interventions Continue to assess patient according to level of care06/05/2025 9:10 PM Riya Camp RNSensory Bofaiidbgqk374/18/2025 9:10 PM Riya Garcia RN Rdwkjrgp457/18/2025 9:10 PM Riya Garcia, FCCkgxlttw723/18/2025 9:10 PM Riya Garcia RNMobility4108/05/2024 9:10 PM Riya Garcia RN Wpzvvgdep189/18/2025 9:10 PM Riya Garcia, RNFriction and Shear3 06/05/2025 9:10 PM Riya Garcia, SAL * Christiano Scale ScoreAnswerDate of HyofsizvgoPgngru7489/18/2025 9:10 PM Riya Camp, SAL * Charting TypeQuestionAnswerDate of AssessmentAuthorCharting TypeShift pnxwizhpun37/18/2025 9:10 PM Riya Garcia RN * Values/BeliefsQuestionAnswerDate of AssessmentAuthorCultural Requests During Ctomawgbxwetrxvfaeu99/18/2025 12:33 AM Susy Vail RNSpiritual Requests During Dtpftoqdkqhlrjmkmce66/18/2025 12:33 AM Susy Vail RN * GenitourinaryQuestionAnswerDate of AssessmentAuthorGenitourinary (WDL)WDL 06/05/2025 9:10 PM Riya Garcia RNUrinary UmoctgwqlflqXy46/18/2025 12:47 AM Cintia Aden RN * Patient MonitoringQuestionAnswerDate of AssessmentAuthorFrequency of Checks Twice per hour, zoqshzxg61/18/2025 9:10 PM Riya Garcia, SAL * Safe EnvironmentQuestionAnswerDate of AssessmentAuthorArm Bands OnID;Fall 06/05/2025 9:10 PM Riya Garcia RNSide Rails/Bed Safety2/ 9:10 PM Riya Garcia RNBed MesrvdWh30/18/2025 9:10 PM Riya Garcia RNThe Patient's Environment is MvemKbg18/18/2025 9:10 PM Riya Garcia RN * MobilityQuestionAnswerDate of NrgagmmhctRjbwblTbrercnjnw36/18/2025 9:10 PM Riya Camp, RNActivity PerformedResting in bed06/05/2025 9:10 PM Riya Camp, RNAmbulation ResponseTolerated fairly well06/05/2025 3:15 PM Kelly Fernandez RNRepositionedTurns self06/05/2025 9:10 PM Riya Garcia RNLevel of AssistanceContact guard assist, steadying vqgqef1506/05/2025 9:10 PM Riya Garcia RNHead of Bed ElevatedSelf lfdedcrdv94/18/2025 9:10 PM Riya Camp RNHeels/FeetFoot of bed sjsoivrv38/18/2025 9:10 PM Riya Camp RNRange of MotionActive;All pblzugfmmfc48/18/2025 9:10 PM Riya Camp, ISRAELnti-Embolism DevicesBilateral;Sequential compression devices, below knee06/05/2025 9:10 PM Riya Garcia, RNAnti-Embolism QugfhnxadxgoGbh52/18/2025 9:10 PM Riya Garcia, RNPatient's mobility zone Zone 9:10 PM Riya Garcia, RNPositioning FrequencyAble to turn self06/05/2025 9:10 PM Riya Garcia RN * HygieneQuestionAnswerDate of AssessmentAuthorHygienePer self06/05/2025 12:47 AM Cintia Aden RNOral CarePer self06/05/2025 12:47 AM Cintia Aden RNLevel of AssistanceMinimal mapric9106/05/2025 9:10 PM Riya Garcia RNIs Patient Total Care?No06/05/2025 9:10 PM Riya Garcia RN Incontinence Protective IsvxlmlPvdcn31/18/2025 9:10 PM Riya Garcia RN * PrecautionsQuestionAnswerDate of UyhuflexmbLtkyypSmdajaaknuqNkti03/18/2025 9:10 PM Riya Garcia RN * Comfort and Environment InterventionsQuestionAnswerDate of AssessmentAuthor GxpyebgUbmnokbjsjtv16/18/2025 3:15 PM Kelly Fernandez RN * ADL ScreeningQuestionAnswerDate of AssessmentAuthorDo you snore or wake up gasping for air?No06/05/2025 12:32 AM Susy Vail RNCan you bring in your CPAP/BiPAP from home?N/A108/05/2024 12:32 AM Susy Vail RNPatient's Vision Adequate to Safely Complete Daily RzfltwtbvhWtq00/18/2025 12:32 AM Susy Vail RNPatient's Judgment Adequate to Safely Complete Daily ActivitiesYes 06/05/2025 12:32 AM Susy Vail RNPatient's Memory Adequate to Safely Complete Daily NvwvqsuddyOen35/18/2025 12:32 AM Susy Vail RNPatient Able to Express Needs/OkibwpgVuo41/18/2025 12:32 AM Susy Vail RNDressing Smpnqrbpcva41/18/2025 12:32 AM Susy Vail RNMQDojjkqefXhgduhzyswm16/18/2025 12:32 AM Susy Vail JLGvpzusyHfikaumcksv93/18/2025 12:32 AM Susy Vail FDUqjsiqlQuqpqtmhuzb12/18/2025 12:32 AM Susy Vail RNToileting Jsikdzivvwi56/18/2025 12:32 AM Susy Vail, RNIn/Out BedIndependent 06/05/2025 12:32 AM Susy Vail RNWalks in NvadKzwpvbldxxh19/18/2025 12:32 AM Susy Vail RNWeakness of UppcPgbq49/18/2025 12:32 AM Susy Vail RNWeakness of Arms/NkvrqAemh80/18/2025 12:32 AM Susy Vail RNHearing - Right CaaKnfyinzdkd42/18/2025 12:32 AM ESTDoe, Susy, RNHearing - Left Ear Rahztxwjfn65/18/2025 12:32 AM Susy Vail RNWhich is your dominant hand? Right06/05/2025 12:32 AM Susy Vail RN * ConsultsQuestionAnswerDate of AssessmentAuthorSpiritual Care Consult NeededNo 06/05/2025 12:33 AM Susy Vail RNSocial Services Consult NeededNo 06/05/2025 12:33 AM Susy Vail RN * Therapy ConsultsQuestionAnswerDate of AssessmentAuthorPT Evaluation Needed2 06/05/2025 12:32 AM Susy Vail RNOT Evaluation Wltgzt966/18/2025 12:32 AM Susy Vail RNSLP Evaluation Ywqopy757 12:32 AM Susy Vail RN * Assistive DevicesQuestionAnswerDate of AssessmentAuthorAssistive DevicesNone 06/05/2025 12:32 AM Susy Vail RN * Provider NotificationQuestionAnswerDate of AssessmentAuthorProvider Role Lwlwrstcgwo00/18/2025 2:10 AM Cintia Aden RNCommunication Comments Informed the MD that the patient went tachy and was shivering, after putting the patient on warm blanket and adjusted the room temp. the patient stopped shivering. Vital signs were normal, BS-96. Thepatient stated that he had 1 time the same episode last week at [place].06/05/2025 2:10 AM Cintia Aden RNProvider RnyxUphdknjxv89/18/2025 2:10 AM Cintia Aden RNMethod of CommunicationFace to face06/05/2025 2:10 AM Cintia Aden RNReason for FgighawkofltqMugunui07/18/2025 2:10 AM Cintia Aden RNResponseNo new ztgosk7206/05/2025 2:10 AM Cintia Aden RNNotification Qqxi270062/18/2025 2:10 AM Cintia Aden RN * [place] Fall Risk InterventionsQuestionAnswerDate of AssessmentAuthor [place] Fall Risk MlbymyjlshycrDhpombxs11/18/2025 9:10 PM Riya Garcia RN * Suicidal IdeationQuestionAnswerDate of AssessmentAuthor1. Wish to be (Lifetime)No06/05/2025 12:34 AM Susy Vail RN2. Non-Specific Active Suicidal Thoughts (Lifetime)No06/05/2025 12:34 AM Susy Vail RN * Rosangela Coma ScaleQuestionAnswerDate of AssessmentAuthorBest Eye Response Jeyqkepmyyy92/18/2025 9:10 PM Riya Garcia RNBe Verbal Response Tposqeao98/18/2025 9:10 PM Riya Garcia RNBest Motor ResponseFollows zskrviqg57/18/2025 9:10 PM Riya Garcia RN * Rosangela Coma Scale ScoreAnswerDate of MxwqcyztnvEapzxu0647/18/2025 9:10 PM Riya Camp RN * Pain AssessmentQuestionAnswerDate of AssessmentAuthorPain Interventions Ahecslmy43/18/2025 9:10 PM Riya Garcia RNPatient's Stated Pain GoalNo pain06/05/2025 9:10 PM Riya Garcia RNPain AssessmentNo/denies pain 06/05/2025 9:10 PM Riya Garcia, SAL * NutritionQuestionAnswerDate of AssessmentAuthorDiet TypeHeart healthy 06/05/2025 9:10 PM Riya Garcia RNFeedingAble to feed self06/05/2025 9:10 PM Riya Garcia, GMPvbblsrkTfng17/18/2025 9:10 PM Riya Garcia, SAL * IntegumentaryQuestionAnswerDate of AssessmentAuthorSkin ColorAppropriate for race;Pale06/05/2025 9:10 PM Riya Garcia RNSkin Condition/TempWarm;Dry 06/05/2025 9:10 PM Riya Garcia RNSkin YcwwusiulHxokcc55/18/2025 9:10 PM Riya Garcia RNSkin TurgorEpidermis thin with loss of subcutaneous uaeimd0606/05/2025 9:10 PM Riya Garcia RNIntegumentary (WDL)X108/05/2024 9:10 PM Riya Garcia RN * QuestionAnswerDate of AssessmentAuthorLast Iqqn3636542/18/2025 3:15 PM Kelly Anthony RNStool PmdebRowru88/18/2025 3:15 PM Kelly Fernandez RNStool DcawtwldhbIlqv67/18/2025 3:15 PM Kelly Fernandez RN * Modified AldreteQuestionAnswerDate of EmhzazszqqEenyflQvrlwjpz320/18/2025 10:59 AM Angelique Naranjo RNRespiration 10:59 AM Angelique Naranjo RNCirculation 10:59 AM Angelique Naranjo RNConsciousness 10:59 AM Angelique Naranjo RNOxygen Qinskigijr896/18/2025 10:59 AM Angelique Naranjo RNModified Clary Kaovg4281 10:59 AM Angelique Echeverria RN * Modified [...] Vail RN * Weight Loss ScoreAnswerDate of PsrzdrjtqcIikdqc866/18/2025 12:33 AM Susy Vail RN * Malnutrition ScoreAnswerDate of ZerulnsctbPykwch048/18/2025 12:33 AM Susy Vail RN documented as of this encounter Mental Status * West Agitation Sedation ScaleQuestionAnswerEntry DaterRichmond Agitation Sedation Scale (RASS) 9:57 AM Angelique Naranjo RN * Rosangela Coma ScaleQuestionAnswerEntry DateAuthorBest Eye ResponseSpontaneous 06/05/2025 9:10 PM Riya Garcia RNBest Verbal QzdfhbzaDjlhzvkk21/18/2025 9:10 PM Riya Garcia RNBest Motor ResponseFollows saauxcme52/18/2025 9:10 PM Riya Garcia RN * [place] Coma Scale ScoreAnswerEntry WnbzFyqlfx8614/18/2025 9:10 PM Riya Garcia RN * Modified AldreteQuestionAnswerEntry GiquHwauldKqafmqep115/18/2025 10:59 AM Angelique Echeverria RNRespiration2108/05/2024 10:59 AM Angelique Naranjo RN Icqnrknsuli089/18/2025 10:59 AM Angelique Naarnjo RNConsciousness2 06/05/2025 10:59 AM Angelique Naranjo RNOxygen Bfcfoobvui108/18/2025 10:59 AM Angelique Naranjo RNModified Clary Isrcg5839 10:59 AM Angelique Echeverria RN documented in this encounter Plan of Treatment DateTypeDepartmentCare Team (Latest Contact Info)Zakiljblpiw62/02/2025 9:00 AM ESTOffice [facility] [address] [place] [address] Bobo Raymond MD [address] [place] [address] 06/22/2025 10:00 AM ESTOffice Visit [facility] [address] [place] [address] Hay William MD [address] [facility] [address] [place] [address] NamePriorityAssociated DiagnosesDate/TimeCORONARY ANGIOGRAPHY 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
--- OUTSIDE RECORDS SUMMARY | 2025-06-06 12:44 | XMS_ITS | Encounter Summary ---
Author Organization [facility] Address [address] [place] [address] Care Team Providers Care General Utility Machine Operator Name Role Phone Rudy Guerra MD Primary Care Provider [phone] Encounter Details DateTypeDepartmentCare Team (Latest Contact Info)Kgchlzuvygl85/19/2025Orders Only [facility] In[facility] [address] [place] [phone] Provider, MD [facility] [place] [phone] Social History Tobacco UseTypesPacks/DayYears UsedDateSmoking Tobacco: FormerCigarettes Smokeless Tobacco: NeverAlcohol UseStandard Drinks/XrekOtjlewflDpe52 (1 standard drink = 0.6 oz pure [...] or living in a fci (including now)? No06/05/2025Hunger Vital SignAnswerDate RecordedWithin the past 12 months, you worried that your food would run out before you got the money to buymore.Never true06/05/2025Ran Out of Food in the Last YearNot on file06/05/2025Sex and Gender InformationValueDate RecordedSex Assigned at IeyupTeqj53/06/2025 8:51 AM EDTLegal MckTviu1501/14/2022 10:53 PM EDTGender OitwsfgpDqai35/06/2025 8:51 AM EDT Sexual OrientationHeterosexual or Zcacrfxq34/06/2025 8:51 AM EDTdocumented as of this encounter Functional Status * QuestionAnswerDate of EykxerccdaWpyqagJR022/7506/06/2025 11:45 AM Kelly Fernandez RNPulse8806/06/2025 11:45 AM Kelly Fernandez RNHeart Rate Source Dfdminc2306/06/2025 11:45 AM Kelly Fernandez RNPatient TvzgbbscXtdxh97/19/2025 11:45 AM Kelly Fernandez RN * Sherman Fall RiskQuestionAnswerDate of AssessmentAuthorHistory of Falling, Immediate or Within 3 Zopdlr0786 7:56 AM Kelly Fernandez RNSecondary Pumemdizi6222/19/2025 7:56 AM Kelly Fernandez RNAmbulatory Mep0975 7:56 AM Kelly Fernandez RNIntravenous Therapy/Heparin Mkbs2956 7:56 AM Kelly Fernandez RNGait/Wddvallvhgci1844/19/2025 7:56 AM Kelly Fernandez RNMental Lomrvn032/19/2025 7:56 AM Kelly Fernandez RNMorse Fall Risk Score85 06/06/2025 7:56 AM Kelly Fernandez RN * Christiano ScaleQuestionAnswerDate of AssessmentAuthorSensory Perceptions4 06/06/2025 7:56 AM Kelly Fernandez RNMoisture3108/06/2024 7:56 AM Kelly Fernandez, PPDztwwlkn671/19/2025 7:56 AM Kelly Fernandez RNMobility3108/06/2024 7:56 AM Kelly Fernandez RNNutrition3108/06/2024 7:56 AM Kelly Fernandez RN Friction and Nwsnl88508/06/2024 7:56 AM Kelly Fernandez RNBraden Scale Score19 06/06/2025 7:56 AM Kelly Fernandez RN * High Fall Risk InterventionsQuestionAnswerDate of AssessmentAuthorHigh Fall Risk OjkecxrhyprakBnshorwz68/19/2025 7:56 AM Kelly Fernandez RNAdditional Fall Risk InterventionsProvided amdbtbmrppl08/19/2025 7:56 AM Kelly Fernandez RN * Watson Fall Risk InterventionsQuestionAnswerDate of AssessmentAuthor Watson Fall Risk QqsmjajqjnrxxPkluowus77/19/2025 7:56 AM Kelly Fernandez RN * Pain Assessment TimerQuestionAnswerDate of AssessmentAuthorRestart Pain Assessment ZbxlvZzt21/19/2025 11:45 AM Kelly Fernandez RN * Sepsis Model ScoresQuestionAnswerDate of AssessmentAuthorEarly Detection of Sepsis Score3.34108/06/2024 12:31 PM ESTChronicles, BatchqEarly Detection of Sepsis Score3.9108/06/2024 12:31 PM ESTChronicles, Batchq * Pain AssessmentQuestionAnswerDate of AssessmentAuthorPain Interventions Svdzkiqp82/19/2025 11:45 AM Kelly Fernandez RNPatient's Stated Pain GoalNo pain06/06/2025 11:45 AM Kelly Fernandez RNPain AssessmentNo/denies pain 06/06/2025 11:45 AM Kelly Fernandez RN * Deterioration Index ScoreQuestionAnswerDate of AssessmentAuthorDeterioration Index Score45.41108/06/2024 12:31 PM ESTChronicles, Batchq * Head, Ears, Eyes, Nose, and Throat (HEENT)QuestionAnswerDate of Assessment AuthorHead, Ears, Eyes, Nose, and Throat (WDL)X108/06/2024 7:56 AM Kelly Fernandez RNR EyeMildly impaired dfcrgl5506/06/2025 7:56 AM Kelly Fernandez RNL EyeMildly impaired oedyaj3806/06/2025 7:56 AM Kelly Fernandez RNTeethMissing teeth06/06/2025 7:56 AM Kelly Fernandez RN * QuestionAnswerDate of AssessmentAuthorMAP (mmHg)8306/06/2025 11:45 [...] president before him? 7:56 AM Kelly Fernandez RNCan you count backward from 20 by 3s? 7:56 AM Kelly Fernandez RN * Fall Risk LevelQuestionAnswerDate of AssessmentAuthorMobility zoneLow (Green Zone)06/06/2025 7:56 AM Kelly Fernandez RNMorse fall risk zoneHigh (Red Zone) 06/06/2025 7:56 AM Kelly Fernandez RNMental status questionaire zoneLow (Green Zone)06/06/2025 7:56 AM Kelly Fernandez RN * QuestionAnswerDate of RmkypkxpbfWtinszRvA955794/19/2025 11:45 AM Kelly Fernandez RN * QuestionAnswerDate of EsixmhhgxbJklcflBA936/7506/06/2025 11:45 AM Kelly Fernandez, CJDbdm82. 11:45 AM Kelly Fernandez RNTemp srcTemporal 06/06/2025 11:45 AM Kelly Fernandez PGConng7727/19/2025 11:45 AM Kelly Fernandez BAZpgg6936/19/2025 11:45 AM Kelly Fernandez RNHeart Rate SourceMonitor 06/06/2025 11:45 AM Kelly Fernandez, RNBP LocationLeft arm06/06/2025 11:45 AM Kelly Fernandez, RNBP AcoqizJoqbuecbz71/19/2025 11:45 AM Kelly Fernandez, operator electronic warfare VygnksDMM69/19/2025 11:45 AM Kelly Fernandez RNEctopyPremature ventricular rkygshucnpna39/19/2025 11:45 AM Kelly Fernandez RNEctopy TyyruviggFiagmpay91/19/2025 11:45 AM Kelly Fernandez RNPulse rate from Plethysmogram (bpm)8706/06/2025 11:45 AM Kelly Fernandez, RNPatient Position Lying06/06/2025 11:45 AM Kelly Fernandez RN * QuestionAnswerDate of AssessmentAuthorLevel of QvcsqbhqorkwdFnhqf78/19/2025 7:56 AM Kelly Fernandez RNOrientation LevelOriented X4108/06/2024 7:56 AM Kelly Anthony RNCognitionFollows ojlnbcea26/19/2025 7:56 AM Kelly Fernandez RNSpeechClear;Delayed cbiogmeqw76/19/2025 7:56 AM Kelly Fernandez RNR Hand HwdyjXrxitcco30/19/2025 7:56 AM Kelly Fernandez, SALL Hand GraspModerate 06/06/2025 7:56 AM Kelly Fernandez RNR Foot OzfsrndnvyatLrerlvle56/19/2025 7:56 AM Kelly Fernandez, RNL Foot DpcsgfjahiuwPgcayztt29/19/2025 7:56 AM Kelly Anthony RNR Foot Plantar TkctunzGzjganaz72/19/2025 7:56 AM Kelly Fernandez, SALL Foot Plantar UxyqqxmZhwbhmvx28/19/2025 7:56 AM Kelly Fernandez RN Neuro SymptomsFatigue;Qvyyqoyss92/19/2025 7:56 AM Kelly Fernandez RNRelieved byRest;Music06/06/2025 7:56 AM Kelly Fernandez RN * QuestionAnswerDate of AssessmentAuthorTelemetry Monitor SnhuxyQs73/19/2025 7:56 AM Kelly Fernandez RNCardiac WdycoaprZmxb18/19/2025 7:56 AM Kelly Fernandez RN * QuestionAnswerDate of AssessmentAuthorPacemaker IdqjJfjdacddk54/19/2025 7:56 AM Kelly Fernandez RN * GastrointestinalQuestionAnswerDate of AssessmentAuthorGastrointestinal (WDL) [facility]08/06/2024 7:56 AM Kelly Fernandez RN * Peripheral VascularQuestionAnswerDate of AssessmentAuthorPeripheral Vascular (WDL)[facility]08/06/2024 7:56 AM Klely Fernandez RN * RUE Neurovascular AssessmentQuestionAnswerDate of AssessmentAuthorRight [...] + 7:56 AM Kelly Fernandez RN * PsychosocialQuestionAnswerDate of AssessmentAuthorPsychosocial (WDL)WDL 06/06/2025 7:56 AM Kelly Fernandez RN * Sherman Fall RiskQuestionAnswerDate of AssessmentAuthorHistory of Falling, Immediate or Within 3 Pkqigc7456/19/2025 7:56 AM Kelly Fernandez RNSecondary Ozvjatsrs3175/19/2025 7:56 AM Kelly Fernandez RNAmbulatory Fac957208/06/2024 7:56 AM Kelly Fernandez RNIntravenous Therapy/Heparin Gmeh2793 7:56 AM Kelly Fernandez RNGait/Hytacouvhqcb5285/19/2025 7:56 AM Kelly Fernandez RNMental Ppqjat101/19/2025 7:56 AM Kelly Fernandez RNMorse Fall Risk Score85 06/06/2025 7:56 AM Kelly Fernandez RN * Christiano ScaleQuestionAnswerDate of AssessmentAuthorSensory Perceptions4 06/06/2025 7:56 AM Kelly Fernandez RNMoisture3108/06/2024 7:56 AM Kelly Fernandez, OXGtupfzkx728/19/2025 7:56 AM Kelly Fernandez RNMobility3108/06/2024 7:56 AM Kelly Fernandez RNNutrition3108/06/2024 7:56 AM Kelly Fernandez RN Friction and Obpkm35708/06/2024 7:56 AM Kelly Fernandez RNBraden Scale Score19 06/06/2025 7:56 AM Kelly Fernandez RN * Charting TypeQuestionAnswerDate of AssessmentAuthorCharting TypeShift wkczjchlef33/19/2025 7:56 AM Kelly Fernandez RN * GenitourinaryQuestionAnswerDate of AssessmentAuthorGenitourinary (WDL)WDL 06/06/2025 7:56 AM Kelly Fernandez RN * Patient MonitoringQuestionAnswerDate of AssessmentAuthorFrequency of Checks Twice per hour, ciphkdba29/19/2025 11:04 AM Kelly Fernandez RN * Safe EnvironmentQuestionAnswerDate of AssessmentAuthorChair AlarmsOff 06/06/2025 7:56 AM Kelly Fernandez RNArm Bands OnID;Fall06/06/2025 7:56 AM Kelly Fernandez RNSide Rails/Bed SafetyOther (Comment)06/06/2025 7:56 AM Kelly Anthony RNThe Patient's Environment is MqmuNkw75/19/2025 7:56 AM Kelly Anthony RN * High Fall Risk InterventionsQuestionAnswerDate of AssessmentAuthorHigh Fall Risk HhpwzqovvbgacTjdmpprs42/19/2025 7:56 AM Kelly Fernandez RNAdditional Fall Risk InterventionsProvided pbvnciqlzly94/19/2025 7:56 AM Kelly Fernandez RN * MobilityQuestionAnswerDate of SmijsynjmwXyikhpBorsxqmace96/19/2025 11:04 AM Kelly Fernandez RNActivity PerformedWalked to bathroom;Resting in bed 06/06/2025 11:04 AM Kelly Fernandez RNDistance Ambulated (ft)24108/06/2024 7:59 AM Kelly Fernandez RNAmbulation ResponseTolerated fairly well06/06/2025 11:04 AM Kelly Fernandez RNAssistive DeviceFront wheel eoycvz0106/06/2025 11:04 AM Kelly Fernandez RNRepositionedTurns self;Semi Callahan's;Pillow support 06/06/2025 11:04 AM Kelly Fernandez RNLevel of AssistanceStandby assist, set- up cues, supervision of patient - no hands on06/06/2025 11:04 AM Kelly Fernandez RNHead of Bed ElevatedSelf wafztzjrq57/19/2025 11:04 AM Kelly Fernandez RNHeels/FeetFoot of bed svbivoys66/19/2025 9:30 AM Kelly Fernandez RN Range of MotionActive;All jinzfpbmlfo72/19/2025 9:30 AM Kelly Fernandez RN Anti-Embolism DevicesBilateral;Sequential compression devices, below knee 06/06/2025 7:59 AM Kelly Fernandez, RNAnti-Embolism YhkkjjsjzkjvNux32/19/2025 7:59 AM Kelly Fernandez RNPatient's mobility zoneZone 11:04 AM Kelly Fernandez RNPositioning FrequencyAble to turn self06/06/2025 11:04 AM Kelly Fernandez RN * HygieneQuestionAnswerDate of AssessmentAuthorLinen changeTotal linen change 06/06/2025 11:04 AM Kelly Fernandez RNSkin CareOther (Comment)06/06/2025 11:04 AM Kelly Fernandez RNHygieneBathed;Back rub;Mishel care;Fcnnue8406/06/2025 11:04 AM Kelly Fernandez RNOral CareTeeth nlrojse9406/06/2025 7:59 AM Kelly Fernandez RNLevel of AssistanceModerate ctfhix1106/06/2025 11:04 AM Kelly Fernandez RNIs Patient Total Care?No06/06/2025 11:04 AM Kelly Fernandez RN Incontinence Protective DevicesChanged;Absorbent eypqsmwopebs73/19/2025 11:04 AM Kelly Fernandez RN * PrecautionsQuestionAnswerDate of VozppypirlQextthVvpczbsztemWbik14/19/2025 7:56 AM Kelly Fernandez RN * Family/Significant Other CommunicationQuestionAnswerDate of AssessmentAuthor Family/Significant Other QojymcZteehcgi91/19/2025 7:56 AM Kelly Fernandez RN * Comfort and Environment InterventionsQuestionAnswerDate of AssessmentAuthor Warm IpxekiiCxywqot10/19/2025 11:47 AM Kelly Fernandez RNComfort Repositioned;Gown changed;Bed pad changed;Draw sheet changed;Partial linen change;Lotion (Comment)06/06/2025 11:04 AM Kelly Fernandez RNAdditional Comfort/Environmental InterventionsWarm cdqadfw3806/06/2025 11:47 AM Kelly Fernandez RN * Watson Fall Risk InterventionsQuestionAnswerDate of AssessmentAuthor Watson Fall Risk WxwurbynismygDdjjmqay44/19/2025 7:56 AM Kelly Fernandez RN * Rosangela Coma ScaleQuestionAnswerDate of AssessmentAuthorBest Eye Response Atvriraugif92/19/2025 7:56 AM Kelyl Fernandez RNBest Verbal ResponseOriented 06/06/2025 7:56 AM eKlly Fernandez RNBest Motor ResponseFollows commands 06/06/2025 7:56 AM Kelly Fernandez RNGlasgow Coma Scale Bapqf3006/19/2025 7:56 AM Kelly Fernandez RN * Pain AssessmentQuestionAnswerDate of AssessmentAuthorPain Interventions Tbvytone50/19/2025 11:45 AM Kelly Fernandez RNPatient's Stated Pain GoalNo pain06/06/2025 11:45 AM Kelly Fernandez RNPain AssessmentNo/denies pain 06/06/2025 11:45 AM Kelly Fernandez RN * NutritionQuestionAnswerDate of AssessmentAuthorDiet TypeHeart healthy 06/06/2025 7:59 AM Kelly Fernandez RNFeedingAble to feed self06/06/2025 7:59 AM Kelly Fernandez PGAgicqkhzXnja80/19/2025 7:59 AM Kelly Fernandez RN * IntegumentaryQuestionAnswerDate of AssessmentAuthorSkin ColorAppropriate for race;Pale06/06/2025 7:56 AM Kelly Fernandez RNSkin Condition/TempWarm;Dry 06/06/2025 7:56 AM Kelly Fernandez RNSkin LquufqhyhInvuto65/19/2025 7:56 AM Kelly Fernandez RNSkin TurgorEpidermis thin with loss of subcutaneous tissue 06/06/2025 7:56 AM Kelly Fernandez RNIntegumentary (WDL)X108/06/2024 7:56 AM Kelly Fernandez RN * QuestionAnswerDate of AssessmentAuthorUrinary MufhkgvevRfnsaymw31/19/2025 11:00 AM Kelly Fernandez RNUrine ColorYellow/straw06/06/2025 11:00 AM Kelly Anthony RNUrine BuklaalxunFbeka45/19/2025 11:00 AM Kelly Fernandez RN Urine OdorNo odor06/06/2025 7:56 AM Kelly Fernandez RNUrinary IncontinenceNo 06/06/2025 7:56 AM Kelly Fernandez RN * QuestionAnswerDate of AssessmentAuthorLast Bisy8608873/19/2025 11:00 AM Kelly Anthony RNStool SwtddVhhfa99/19/2025 11:00 AM Kelly Fernandez RNStool OpwbyxveohTfoy86/19/2025 11:00 AM Kelly Fernandez RNBowel IncontinenceNo 06/06/2025 11:00 AM Kelly Fernandez RN * QuestionAnswerDate of AssessmentAuthorPatient Goal for Treatmentdischarge 06/06/2025 4:00 AM Riya Garcia RN documented as of this encounter Mental Status * Rosangela Coma ScaleQuestionAnswerEntry DateAuthorBest Eye ResponseSpontaneous 06/06/2025 7:56 AM Kelly Fernandez RNBest Verbal SokdcxnuKflaldrg36/19/2025 7:56 AM Kelly Fernandez RNBest Motor ResponseFollows ckakvfme12/19/2025 7:56 AM Kelly Fernandez RNGlasgow Coma Scale Pzcap5301/19/2025 7:56 AM Kelly Fernandez RN documented in this encounter Plan of Treatment DateTypeDepartmentCare Team (Latest Contact Info)Sfxkmscuhxv91/02/2025 9:00 AM ESTOffice Visit [facility] [place] [address] [place] [address] Bobo Raymond MD [address] [place] [address] 06/22/2025 10:00 AM ESTOffice Visit [facility] [address] [place] [address] Hay William MD [address] [facility] [address] [facility] [place] [address] NamePriorityAssociated DiagnosesDate/TimeCORONARY ANGIOGRAPHY Valvular endocarditis RIGHT HEART CATH Valvular endocarditis documented as of this encounter Procedures Procedure NamePriorityDate/TimeAssociated DiagnosisCommentsBLOOD CULTURERoutine 06/06/2025 6:41 AM ESTdocumented in this encounter Results * Blood culture (06/06/2025 6:41 AM EST)Specimen (Source)Anatomical Location / LateralityCollection Method / VolumeCollection TimeReceived TimeBloodVenous blood specimen / Unknown Narrative Authorizing ProviderResult TypeResult StatusHistorical Provider TERRI MICROBIOLOGY - GENERAL ORDERABLESFinal Result documented in this encounter Visit Diagnoses Not on filedocumented in this encounter Care Teams Team MemberRelationshipSpecialtyStart DateEnd Date Rudy Guerra MD [address] [place] [address] PCP - Zwbrnaj56/16/22documented as of this encounter
--- OUTSIDE RECORDS SUMMARY | 2025-06-06 12:45 | XMS_ITS | Encounter Summary ---
Author Organization [facility] Address [address] [place] [address] Care Team Providers Care Multimedia Teacher Name Role Phone Rudy Guerra MD Primary Care Provider [phone] Reason for Visit * ReasonOnset DateCommentsMed Vwoqjx1405/25/2025 Encounter Details DateTypeDepartmentCare Team (Latest Contact Info)Rgwzqkzkhce36/07/2025Refill [facility] [place] [address] [place] [address] Zaida Farias MA Chronic systolic heart failure (CMS/HCC) Social History Tobacco UseTypesPacks/DayYears UsedDateSmoking Tobacco: FormerCigarettes Smokeless Tobacco: NeverAlcohol UseStandard Drinks/IofcNveuilllJmc67 (1 standard drink = 0.6 oz pure [...] homeless or living in a custodial (including now)?No04/19/2025Hunger Vital SignAnswerDate RecordedWithin the past 12 months, you worried that your food would run out before you got the money to buymore.Never true04/19/2025Ran Out of Food in the Last YearNot on file04/19/2025Sex and Gender InformationValueDate RecordedSex Assigned at ZgibnEpxx58/06/2025 8:51 AM EDTLegal BhcFzzb1901/14/2022 10:53 PM EDT Gender PcjjbdbzLylf29/06/2025 8:51 AM EDTSexual OrientationHeterosexual or Sfqtvxpe23/06/2025 8:51 AM EDTdocumented as of this encounter Plan of Treatment DateTypeDepartmentCare Team (Latest Contact Info)Vfvrpflbsef18/02/2025 9:00 AM ESTOffice Visit [facility] [address] [place] [address] Bobo Raymond MD [address] [place] [address] 06/22/2025 10:00 AM ESTOffice Visit [facility] [address] [place] [address] Hay William MD [address] [facility] [place] [address] NamePriorityAssociated DiagnosesDate/TimeCORONARY ANGIOGRAPHY Valvular endocarditis RIGHT HEART CATH Valvular endocarditis documented as of this encounter Visit Diagnoses Diagnosis Chronic systolic heart failure (CMS/HCC) Chronic systolic heart failure documented in this encounter Care Teams Team MemberRelationshipSpecialtyStart DateEnd Date Rudy Guerra MD [address] [place] [address] PCP - Fbnebeu92/16/22documented as of this encounter
--- OUTSIDE RECORDS SUMMARY | 2025-06-06 12:45 | XMS_ITS | Encounter Summary ---
Author Organization [facility] Address [address] [place] [address] Care Team Providers Care Drawing Hand Name Role Phone Rudy Guerra MD Primary Care Provider [phone] Encounter Details DateTypeDepartmentCare Team (Latest Contact Info)Swhabtavrws57/31/2025Orders Only [facility] [address] [place] [address] Mitesh Webb MD [address] [place] [address] Social History Tobacco UseTypesPacks/DayYears UsedDateSmoking Tobacco: FormerCigarettes Smokeless Tobacco: NeverAlcohol UseStandard Drinks/AgbtEmfqngvyUao66 (1 standard drink = 0.6 oz pure [...] were you homeless or living in a nursing home (including now)?No04/19/2025Hunger Vital SignAnswerDate RecordedWithin the past 12 months, you worried that your food would run out before you got the money to buymore.Never true04/19/2025Ran Out of Food in the Last YearNot on file04/19/2025Sex and Gender InformationValueDate RecordedSex Assigned at TrbwlOqmz58/06/2025 8:51 AM EDTLegal AaqRgfb7801/14/2022 10:53 PM EDT Gender AekmvalbEajn58/06/2025 8:51 AM EDTSexual OrientationHeterosexual or Sthgbrgh71/06/2025 8:51 AM EDTdocumented as of this encounter Plan of Treatment DateTypeDepartmentCare Team (Latest Contact Info)Auyqgwjjfyr31/02/2025 9:00 AM ESTOffice Visit [facility] [address] [place] [address] Bobo Raymond MD [address] [place] [address] 06/22/2025 10:00 AM ESTOffice Visit [facility] [address] [place] [address] Hay William MD [address] [facility] [address] [place] [address] NamePriorityAssociated DiagnosesDate/TimeCORONARY ANGIOGRAPHY Valvular endocarditis RIGHT HEART CATH Valvular endocarditis documented as of this encounter Procedures Procedure NamePriorityDate/TimeAssociated DiagnosisCommentsCARDIAC DEVICE CHECK - REMOTE - SWEYloqoja10/31/2025 12:00 AM EDTdocumented in this encounter Results * Cardiac device check - Remote ICD (05/18/2025 12:00 AM EDT)Anatomical Region LateralityModalityOtherSpecimen (Source)Anatomical Location / Laterality Collection Method / VolumeCollection TimeReceived Time05/18/2025 Narrative Authorizing ProviderResult TypeResult StatusSamelissa Webb [facility] IMPLANTABLE CARDIAC DEVICE PROCEDURESFinal Result documented in this encounter Visit Diagnoses Not on filedocumented in this encounter Care Teams Team MemberRelationshipSpecialtyStart DateEnd Date Rudy Guerra MD [address] [place] [address] PCP - Pqovqub64/16/22documented as of this encounter
--- OUTSIDE RECORDS SUMMARY | 2025-06-06 12:45 | XMS_ITS | Clinical Summary ---
Author Organization [facility] Address [address] [place] [address] Care Team Providers Care Paramedic Instructor Name Role Phone Rudy King MD Primary Care Provider [phone] Allergies No known active allergies Medications MedicationSigDispense QuantityRefillsLast FilledStart DateEnd DateStatus albuterol 90 mcg/actuation inhaler Inhale 1 puff 2 times daily.Suspended fluticasone (Flonase) 50 mcg/actuation nasal spray Administer 1 spray into each nostril two times daily. Shake gently. Before first use, prime pump. After use, clean tip and replace cap.Suspended allopurinol (Zyloprim) 300 mg tablet Take 300 mg by mouth in the morning.Suspended Dupixent Syringe 300 mg/2 mL syringe injection Inject 300 mg under the skin every 14 (fourteen) days.02/03/2025Suspended fluticasone propion-salmeteroL (Advair Diskus) 500-50 mcg/dose diskus inhaler Inhale 1 puff two times daily.10/07/2022Suspended dapagliflozin propanediol (Farxiga) 10 mg Indications:Chronic systolic congestive heart failure (CMS/HCC)Take 1 tablet (10 mg) by mouth once daily as directed. 90 tablet 310//Discontinued(Reorder) spironolactone (Aldactone) 25 mg tablet Indications:Chronic systolic heart failure (CMS/HCC)Take 1 tablet (25 mg) by mouth in the morning. 90 tablet 301//01/2025Discontinued(Reorder) atorvastatin (Lipitor) 40 mg tablet Indications:Coronary artery disease involving sioux coronary artery of sioux heart without angina pectorisTake 1 tablet (40 mg) by mouth at bedtime. 90 tablet 304/21/2025Suspended aspirin 81 mg chewable tablet Indications:Presence of Watchman left atrial appendage closure deviceChew 1 tablet (81 mg) with breakfast. 90 tablet /05/2026Suspended clopidogrel (Plavix) 75 mg tablet Indications:Presence of Watchman left atrial appendage closure deviceTake 1 tablet (75 mg) by mouth in the morning. 90 tablet /05/2026Suspended metoprolol succinate XL (Toprol-XL) 25 mg 24 [...] Additional Information Patient not taking.Reported on 05/14/2025 colchicine 0.6 mg tablet Indications:Heart failure with reduced ejection fraction (CMS/HCC)Take 1 tablet (0.6 mg) by mouth in the morning. 30 tablet Suspended furosemide (Lasix) 20 mg tablet Indications:Heart failure with reduced ejection fraction (CMS/HCC)Take 2 tablets (40 mg) by mouth if needed each day (for legs swelling or weight gain >2-3 lbs a day). 30 tablet 05/04/2025Suspended dapagliflozin propanediol (Farxiga) 10 mg Indications:Chronic systolic congestive heart failure (CMS/HCC)Take 1 tablet (10 mg) by mouth once daily as directed. 90 tablet Suspended metoprolol succinate XL (Toprol-XL) 25 mg 24 hr tablet Indications:Heart failure with reduced ejection fraction (CMS/HCC)Take 0.5 tablets (12.5 mg) by mouth once daily as directed. Do not crush or chew. 45 tablet /Suspended spironolactone (Aldactone) 25 mg tablet Indications:Chronic systolic heart failure (CMS/HCC)Take 1 tablet (25 mg) by mouth in the morning. 90 tablet 311/358608/01/2026Suspended furosemide (Lasix) 20 mg tablet Take 20 mg by mouth if needed each day.Suspended Active Problems ProblemNoted DateDiagnosed DateModerate protein-calorie wuwpolewajwf87/19/2025 Assessment & Plan (06/06/2025 12:27 PM EST): - Clinical dietitian consulted, recommendations as below Acute bacterial kiwryiwlhqof01/19/2025 Assessment & Plan (06/06/2025 12:27 PM EST): Blood cultures continues to be positive for [...] they will discuss the case with the interventional sale consultant. Sepsis due to Lolivpbczgvcik49/19/2025 Assessment & Plan (06/06/2025 12:27 PM EST): Blood cultures continues to be positive for [...] they will discuss the case with the interventional sale consultant. Infection involving implantable cardioverter-defibrillator (ICD)06/06/2025 Assessment & Plan (06/06/2025 12:27 PM EST): Blood cultures continues to be positive for [...] they will discuss the case with the interventional sale consultant. Acute kidney zrtriz1606/05/20256663Zpujzm30/18/2025hronic kidney disease, stage 3a 06/05/2025Gout06/05/2025oronary artery disease involving sioux coronary artery of sioux heart without angina rhkpaker71/18/2025HFrEF (heart failure with reduced ejection fraction)06/05/20257372Uostjjlzul01/18/2025 Assessment & Plan (06/06/2025 12:27 PM EST): Blood cultures continues to be positive for [...] they will discuss the case with the interventional sale consultant. Assessment & Plan (06/05/2025 4:17 AM EST): Blood cultures were growing Staphylococcus lugdunensis Continue Ancef ID and Cardiology consult Elevated LFTs06/05/2025 Assessment & Plan (06/06/2025 12:27 PM EST): LFTs were elevated above the hospital Statin was held Assessment & Plan (06/05/2025 4:17 AM EST): LFTs were elevated above the hospital Statin was held Chronic nezfbt5306/05/2025 Assessment & Plan (06/06/2025 12:27 PM EST): Monitor hemoglobin Assessment & Plan (06/05/2025 4:17 AM EST): Monitor hemoglobin Valvular cowqhophxqsv26/17/2025ardiogenic shock05/03/2025 Assessment & Plan (05/03/2025 12:13 PM EDT): - Required Stephens Stacy and dobutamine in ICU. - Improving. [...] US neck. - Start doxy empirically. Sinus gnxyudesxtp90/06/2025 Assessment & Plan (05/03/2025 12:13 PM EDT): - Continue Toprol, Farxiga and spironolactone. - Hold Entresto due to LINDA. Assessment & Plan (04/24/2025 4:13 PM EDT): - Continue Toprol. - Hold Entresto and spironolactone due to hypotension. Assessment & Plan (04/23/2025 3:28 PM EDT): - Continue Toprol. - Hold Entresto and spironolactone due to hypotension. Right ventricular etsoodhdpbx09/06/2025 Assessment & Plan (05/03/2025 12:13 PM EDT): - Required Stephens Stacy and dobutamine in ICU. - Improving. Assessment & Plan (04/24/2025 4:13 PM EDT): - CTA chest showed no PE. - Right cath today. Assessment & Plan (04/23/2025 3:28 PM EDT): - We will order CTA chest due to tachycardia. - Left and right cath tomorrow. Hypotension due to ztpfgplbukh30/03/2025 Assessment & Plan (05/03/2025 12:13 PM EDT): [...] showed early tamponade. Patient was taken to cath laboratory technician for Pericardiocentesis. Right heart cath was not suggestive for tamponade. 300 ml serosanguinous fluid. - Repeated echo showed mild effusion. Assessment & Plan (04/24/2025 4:13 PM EDT): - Echo showed early tamponade. Patient was taken to cath laboratory technician for Pericardiocentesis. Right heart cath was not suggestive for tamponade. 300 ml serosanguinous fluid. - Monitor BP. - Continue colchicine per Cardiology. - Repeated echo showed mild effusion. Assessment & Plan (04/23/2025 3:28 PM EDT): - Echo showed early tamponade. Patient was taken to cath laboratory technician for Pericardiocentesis. Right heart cath was not suggestive for tamponade. 300 ml serosanguinous fluid. - Monitor BP. - Continue colchicine per Cardiology. - Repeated echo showed mild effusion. Assessment & Plan (04/22/2025 8:13 PM EDT): - Echo showed early tamponade. Patient was taken to cath laboratory technician for Pericardiocentesis. Right heart cath was not suggestive for tamponade. 300 ml serosanguinous fluid and pigtail was placed. - Monitor BP. - Continue colchicine per Cardiology. - Repeat echo on Monday 04/23. Assessment & Plan (04/21/2025 4:54 PM EDT): - Echo showed early tamponade. Patient was taken to cath laboratory technician for Pericardiocentesis. Right heart cath was not suggestive for tamponade. 300 ml serosanguinous fluid and pigtail was placed. - Monitor BP. - Continue colchicine per Cardiology. - Follow up blood and fluid cx. - Repeat echo on Monday 04/23. Assessment & Plan (04/20/2025 12:20 PM EDT): - Echo showed early tamponade. Patient was taken to cath laboratory technician for Pericardiocentesis. Right heart cath was [...] small pericardial effusion. Workup was negative for VT Daily Update: patient arrived from [facility]. Pain has improved to 2/10 Today's Plan: will continue to control pain as necessary. Cardiology consulted for investigation ofwatchman and other etiologies. Will continue to monitor. NPO for now. Echo showed signs of cardiac tamponade. Patient taken to heart cath with plan for possible pericardiocentesis. Heart failure with reduced ejection ordwmrbe68/02/2025 Assessment & Plan (06/06/2025 12:27 PM EST): Most recent echo showed EF of 20% Patient's Entresto, spironolactone, and Farxiga were held at [facility] due to hypotension and LINDA Metoprolol was being given Presently, patient appears euvolemic Assessment & Plan (06/05/2025 4:17 AM EST): Most recent echo showed EF of 20% Patient's Entresto, spironolactone, and Farxiga were held at [facility] due to hypotension and LINDA Metoprolol was being given Presently, patient appears euvolemic Assessment & Plan (05/03/2025 2:05 PM EDT): [...] as well as daily weight checks. Pericardial qbvdihkl92/02/2025 Assessment & Plan (06/06/2025 12:27 PM EST): -Diagnosed on recent admission. Not evident on his MASON done on this admission. Status post pericardiocentesis Right heart cath was not suggestive of for tamponade patient was previously discharged on colchicine Assessment & Plan (06/05/2025 4:17 AM EST): status post pericardiocentesis Right heart cath was not suggestive of for tamponade patient was previously discharged on colchicine Assessment & Plan (05/03/2025 12:13 PM EDT): - Echo on admission showed early tamponade. Patient was taken to cath laboratory technician for Pericardiocentesis. Right heart cath was not suggestive for tamponade. 300 ml serosanguinous fluid. - Repeated echo showed mild effusion. Assessment & Plan (04/24/2025 4:13 PM EDT): - Echo showed early tamponade. Patient was taken to cath laboratory technician for Pericardiocentesis. Right heart cath was not suggestive for tamponade. 300 ml serosanguinous fluid. - Monitor BP. - Continue colchicine per Cardiology. - Repeated echo showed mild effusion. Assessment & Plan (04/23/2025 3:28 PM EDT): - Echo showed early tamponade. Patient was taken to cath laboratory technician for Pericardiocentesis. Right heart cath was not suggestive for tamponade. 300 ml serosanguinous fluid. - Monitor BP. - Continue colchicine per Cardiology. - Repeated echo showed mild effusion. Assessment & Plan (04/22/2025 8:13 PM EDT): - Echo showed early tamponade. Patient was taken to cath laboratory technician for Pericardiocentesis. Right heart cath was not suggestive for tamponade. 300 ml serosanguinous fluid and pigtail was placed. - Monitor BP. - Continue colchicine per Cardiology. - Repeat echo on Monday 04/23. Assessment & Plan (04/21/2025 4:54 PM EDT): - Echo showed early tamponade. Patient was taken to cath laboratory technician for Pericardiocentesis. Right heart cath was not suggestive for tamponade. 300 ml serosanguinous fluid and pigtail was placed. - Monitor BP. - Continue colchicine per Cardiology. - Follow up blood and fluid cx. - Repeat echo on Monday 04/23. Assessment & Plan (04/20/2025 12:20 PM EDT): - Echo showed early tamponade. Patient was taken to cath laboratory technician for Pericardiocentesis. Right heart cath was [...] small pericardial effusion. Workup was negative for VT Daily Update: patient arrived from [facility]. Pain has improved to 2/10 Today's Plan: will continue to control pain as necessary. Cardiology consulted for investigation ofwatchman and other etiologies. Will continue to monitor. NPO for now. Echo showed signs of cardiac tamponade. Patient taken to heart cath with plan for possible pericardiocentesis. Xoizvcwlhhoa48/02/2025 Assessment & Plan (06/06/2025 12:27 PM EST): monitor sodium level Fluid restrict Assessment & Plan (06/05/2025 4:17 AM EST): monitor sodium level Fluid restrict Assessment & Plan (04/20/2025 12:20 PM EDT): - Follow up urine Na and osmol. - Improving. Assessment & Plan (04/19/2025 1:19 PM EDT): Sodium 126 Will continue to monitor Urine sodium and serum osmolality ordered Cmizwahjcwra82/02/2025trial dqgcxrotxard19/09/2025 Assessment & Plan (05/03/2025 12:13 PM EDT): [...] PM EDT): atrial fibrillation status post Watchman 7-2022-25 Will continue aspirin and plavix Will continue to monitor Paroxysmal atrial zdifxkjeqecy33/04/2024 Overview (01/06/2024): Last Assessment & Plan: In NSR and continue medication. Follow up with cardiology. Assessment & Plan (06/06/2025 12:27 PM EST): status post Watchman continue Toprol Assessment & Plan (06/05/2025 4:17 AM EST): status post Watchman continue Toprol PAF (paroxysmal atrial fibrillation)07/22/2023 Overview (06/05/2025): Documented on 08/24/2023 by AMINATA ALEXANDER Chronic gyskyovhkxxa33Nasal polypllergic rhinitis due to emdqwq9503/02/2023ICD (implantable cardioverter-defibrillator) in place09/15/2022 Assessment & Plan (06/06/2025 12:27 PM EST): Most recent echo showed EF of 20% Patient's Entresto, spironolactone, and Farxiga were held at [facility] due to hypotension and LINDA Metoprolol was being given Presently, patient appears euvolemic Assessment & Plan (06/05/2025 4:17 AM EST): Most recent echo showed EF of 20% Patient's Entresto, spironolactone, and Farxiga were held at [facility] due to hypotension and LINDA Metoprolol was being given Presently, patient appears euvolemic Assessment & Plan (05/03/2025 2:05 PM EDT): [...] is due for interrogation this coming march Uystkcvxycpbop34/14/2023 Overview (09/01/2022): Added automatically from request for surgery [id number] Assessment & Plan (06/06/2025 12:27 PM EST): Most recent echo showed EF of 20% Patient's Entresto, spironolactone, and Farxiga were held at [facility] due to hypotension and LINDA Metoprolol was being given Presently, patient appears euvolemic Assessment & Plan (06/05/2025 4:17 AM EST): Most recent echo showed EF of 20% Patient's Entresto, spironolactone, and Farxiga were held at [facility] due to hypotension and LINDA Metoprolol was being given Presently, patient appears euvolemic Assessment & Plan (05/03/2025 2:05 PM EDT): [...] Plan (02/19/2023 1:06 PM EDT): As above Nonischemic cibjbbhtlrxuoi53/14/2023 Overview (06/05/2025): Added automatically from request for surgery [id number] Last Assessment & Plan: As above Depressive /13/1394Cfsfrmsiqbbi04/13/2023 Assessment & Plan (02/19/2023 1:06 PM EDT): Continue statin Gxjncmqmeic44/13/2023Seasonal allergic /13/2023Steatosis of liver 08/31/2022Vitamin D xyqgdenbzj94/13/2023oronary artery disease involving sioux coronary artery of sioux heart with angina pgtyucex58/19/2022 Assessment & Plan (06/06/2025 12:27 PM EST): -Continue aspirin, Plavix on hold. Lipitor held due to elevated LFTs Assessment & Plan (06/05/2025 4:17 AM EST): continue aspirin, Plavix Lipitor held due to elevated LFTs Assessment & Plan (05/03/2025 12:13 PM EDT): [...] statin therapy lipitor 40mg Chronic systolic heart xbmvyxy4807/06/2022 Assessment & Plan (01/06/2024 12:03 PM EDT): [facility] II- currently EF improved from 25-30% to 40% Remains euvolemic and stable Continue GDMT- lipitor, farxiga, toprol, entresto and aldactone Diuretic therapy- continue farxiga Monitor daily weights, I&O, fluid restriction 1.5-2L/day, renal function and electrolytes- Currently stable - improved EF- continue all medications Assessment & Plan (02/19/2023 1:05 PM EDT): [facility] II- currently euvolemic without exacerbation Continue GDMT- ASA, lipitor, toprol, farxiga, aldactone and will increase entresto to 49-51 mg bid Repeat BMP in 1 week to assess renal function and electrolyes Diuretic therapy- farxiga- pt is euvolemic currently Monitor daily weights, I&O, fluid restriction 1.5-2L/day, renal function and electrolytes- Chronic HFrEF (heart failure with reduced ejection fraction)07/06/2022 Overview (06/05/2025): Last Assessment & Plan: [facility] II- currently euvolemic without exacerbation Continue GDMT- ASA, lipitor, toprol, farxiga, aldactone andwill increase entresto to 49-51 mg bid Repeat BMP in 1 week to assess renal function and electrolyes Diuretic therapy- farxiga- pt is euvolemic currently Monitor daily weights, I&O, fluid restriction 1.5-2L/day, renal function and electrolytes- History of malignant neoplasm of eciehneb46/16/1083Ttvwsvrdptjlmg35/16/2022 Assessment & Plan (06/06/2025 12:27 PM EST): replete magnesium Assessment & Plan (06/05/2025 4:17 AM EST): replete magnesium Primary uygeceejmfvd44/16/2022 Assessment & Plan (05/03/2025 12:13 PM EDT): [...] Continue medications New onset of congestive heart qjclgxa0707/02/2022 Assessment & Plan (07/06/2022 10:32 PM EST): [...] complexes he may no BiV ICD -continue tvlubnQW56cz, entresto 24-26, will add medications pending echo Syncope and bofvtwsz04/15/2022 Overview (07/03/2022): Added automatically from request for surgery [id number] Uncomplicated uyppkp4307/29/2012 Assessment & Plan (05/03/2025 12:13 PM EDT): [...] to our equivalent Mild persistent asthma without hovmzhfcagnq99/11/2013 Overview (01/06/2024): Last Assessment & Plan: No SOB and continue advair. Use albuterol PRN. Benign essential fwinfzlqehkz04 Assessment & Plan (06/06/2025 12:27 PM EST): -Continue with metoprolol. Holding Entresto/spironolactone/Farxiga due to borderline hypotension. Assessment & Plan (06/05/2025 4:17 AM EST): monitor blood pressure closely, currently on Toprol Ginaglsugsvbhb53 Assessment & Plan (01/06/2024 11:59 AM EDT): Script for liver function and lipid levels given to pt Continue statin Malignant tumor of guktppix87 Resolved Problems ProblemNoted DateDiagnosed DateResolved DateHx of benign neoplasm of prostate Encounters DateTypeDepartmentCare DfllWmphmihcrkt58/19/2025Orders Only [facility] Inpatient Pharmacy [address] [place] [phone] ProviderGerman MD 06/05/2025 12:25 AM EST - PresentHospital Encounter [facility] [address] [place] [phone] Benedict Pascual MD Mansur, Sarmed, MD Bacteremia (Primary Dx); Valvular oswnizlxbarl30/18/6667Xhhygn39/13/2025Telephone [facility] Heart at [facility] [address] [place] [address] Mercedes Prado MA 05/30/2025Results Follow-Up [facility] Cardiology [address] [place] [address] Neelam Gutierrez CNP Cardiac event obnaclo4505/25/2025Refill [facility] [address] [place] [facility] [place] [address] Zaida Farias MA Chronic systolic heart failure (CMS/HCC)05/24/2025 10:35 AM ESTAncillary Procedure [facility] [address] [place] [phone] Pre-operative cardiovascular examination, ICD in place05/21/2025Telephone [facility] [address] [place] [address] Radha Green MA 05/18/2025Orders Only [facility] [address] [place] [phone] Mitesh Vernon MD 05/14/2025 1:40 PM EDTOffice Visit [facility] [address] [place] [facility] [place] [phone] Elliott Nettles CNP S/P pericardiocentesis (Primary Dx); Chronic systolic heart failure (CMS/HCC); Nonischemic cardiomyopathy (CMS/HCC); ICD (implantable cardioverter-defibrillator) in place; Paroxysmal atrial fibrillation (CMS/HCC); Benign hypertensive heart disease with heart failure (CMS/HCC); Chronic systolic congestive heart failure (CMS/HCC); Heart failure with reduced ejection fraction (CMS/HCC)05/07/2025 10:40 AM EDT Ancillary Procedure [facility] [address] [place] [phone] Pre-operative cardiovascular examination, ICD in place05/07/2025Telephone [facility] Heart [facility] Vascular [facility] [address] [place] [phone] Yelena Lara RN HF post discharge call and inpt survey sent.05/07/2025Orders Only [facility] [address] [place] [address] Mercedes Prdao MA LINDA (acute kidney injury) (Primary Dx); Ygrpsugtlvcq68/17/2025Orders Only [facility] [address] [place] [address] Bobo Raymond MD 04/24/2025 3:00 PM EDT - 04/24/2025 4:00 PM EDTSurgery [facility] [address] [place] [address] Hay William MD Right heart cath [[id number] (CPT??)]04/24/2025Orders Only [facility] [address] [place] [address] Mitesh Vernon MD 04/23/2025 8:35 AM EDTAncillary Procedure [facility] [address] [place] [address] Pre-operative cardiovascular examination, ICD in place04/19/2025 2:45 PM EDT - 04/19/2025 5:15 PM EDTSurgery [facility] [address] [place] [address] Venu Samaniego MD Left heart cath04/19/2025 10:46 AM EDT - 05/04/2025 4:33 PM EDTHospital Encounter [facility] [address] [place] [address] Benedict Pascual MD Noori, Zaid, MD Moukarbel, [...] failure (CMS/HCC) Discharge Disposition: Home-Health Care Svc (06)04/19/20255472Sfboms09/16/2025 10:20 AM EDTOffice Visit [facility] Heart at [facility] [address] [place] [address] Neelam Gutierrez CNP Paroxysmal atrial fibrillation (CMS/HCC) (Primary Dx); Presence of Watchman left atrial appendage closure device; Chronic systolic heart failure (CMS/HCC); Coronary artery disease involving sioux coronary artery of sioux heart without angina pectoris; ICD (implantable cardioverter-defibrillator) in place; Nonischemic cardiomyopathy (CMS/HCC); Benign hypertensive heart disease with heart failure (CMS/HCC)03/26/2025 2:34 PM EDT - 03/26/2025 11:59 PM EDTHospital Encounter [facility] CT Imaging [address] [place] [address] Prediabetes (Primary Dx); Paroxysmal atrial fibrillation (CMS/HCC); Presence of Watchman left atrial appendage closure device Discharge Disposition: Home or Self Care ()03/23/2025 10:45 AM EDTAncillary Procedure [facility] [address] [place] [phone] Pre-operative cardiovascular examination, ICD in place03/23/2025Orders Only [facility] [address] [place] [phone] Dariel Wagoner MD from Last 3 Months Immunizations ImmunizationAdministration DatesNext DsvMLL7109/01/2021Influenza, Unspecified 07/29/2012Unspecified Sars-Cov-2 Qlpbhigdjfw44/12/2021,10/11/2020,2020 Family History Medical HistoryRelationNameCommentsEmphysemaFatherStrokeMotherpacemakerMother RelationNameStatusCommentsFatherDeceasedMotherDeceased Social History Tobacco UseTypesPacks/DayYears UsedDateSmoking Tobacco: FormerCigarettes Smokeless Tobacco: Never Tobacco Cessation:Counseling Given: Not Answered Alcohol UseStandard Drinks/NmgjFpzfkesaIlj74 (1 standard drink = 0.6 oz pure alcohol)occasionalHumiliation, Afraid, Rape, and Kick questionnaireAnswerDate RecordedWithin the last year, have you been afraid of your partner or ex-partner?No06/05/2025Emotionally AbusedNot on file06/05/2025Physically Abused Not on file06/05/2025Sexually AbusedNot on file06/05/2025Overall Financial Resource Strain (CARDIA)AnswerDate RecordedHow hard is it for you to pay for the very basics like food, housing, medical care, and heating?Not hard at all 06/05/2025HC UtilitiesAnswerDate RecordedIn the past 12 months has the [place], gas, oil, or water [employer] threatened to shut off services in your [...] you homeless or living in a senior care (including now)? No06/05/2025Hunger Vital SignAnswerDate RecordedWithin the past 12 months, you worried that your food would run out before you got the money to buymore.Never true06/05/2025Ran Out of Food in the Last YearNot on file06/05/2025Sex and Gender InformationValueDate RecordedSex Assigned at AjcwkJjea30/06/2025 8:51 AM EDTLegal MnwOqir5201/14/2022 10:53 PM EDTGender BgarvycgArdj71/06/2025 8:51 AM EDT Sexual OrientationHeterosexual or Govzxecq28/06/2025 8:51 AM EDT Last Filed Vital Signs Vital SignReadingTime TakenCommentsBlood Irqvifzr890/7511/ 11:45 AM EST Ylxtc001906/06/2025 11:45 AM FWRRqcngujrodq76.4 ??C (97.5 ??F)06/06/2025 11:45 AM ESTRespiratory Pdej340906/06/2025 11:45 AM ESTOxygen Mqzfwkgcli437%06/06/2025 11:45 AM ESTInhaled Oxygen Concentration--Jbkinp93.8 kg (158 lb 6.4 oz) 06/06/2025 4:45 AM SUENyhyih737.7 cm (5' 8 )06/05/2025 6:45 AM ESTBody Mass Index24.0806/05/2025 6:45 AM EST Plan of Treatment DateTypeDepartmentCare Team (Latest Contact Info)Zbatljtrqrn92/02/2025 9:00 AM ESTOffice Visit [facility] [address] [place] [address] Bobo Raymond MD [address] [place] [address] 06/22/2025 10:00 AM ESTOffice Visit [facility] [address] [place] [address] Hay William MD [address] [facility] [address] [facility] [place] [place] [phone] NamePriorityAssociated DiagnosesDate/TimeCORONARY ANGIOGRAPHY Valvular endocarditis RIGHT HEART CATH Valvular endocarditis Health MaintenanceDue DateLast DoneCommentsCT Hcupnbnaodcx04/04/1956Diabetes: Hemoglobin A1C1955FIT-DNA1955FIT1955FOBT1955Medicare Annual Wellness (AWV)1955 9768Joeiocshclmpa82/04/1956Depression Screening 1967Pneumococcal Vaccine: 50+ Years (1 of 2 - PCV)09/19/1974Adult Tetanus 03/04/1978Zoster Vaccines (1 of 2)09/19/20056061Oyyiqixyvjv43 Colorectal Cancer Fcbikjrvw68/09/2018COVID-19 Vaccine ( season) /06/2021, 05/30/2021, 10/11/2020, Additional history existsInfluenza Vaccine (#1)501/05/2013Fall Risk Thvygalct21HIB VaccinesAged OutNo longer eligible based on patient's [...] ImplantedTypeAreaManufacturerDevice IdentifierShelf Expiration DateModel / Serial / LotDefib,Shonnant Df4-Dr - [id number] - [id number] Implanted:Qty: 1 on 09/04/2022 [facility] [id number] / [id number] / [place] 4-Front S Active Fix Single Coil 59cm Implanted:Qty: 1 on 09/04/2022 by Bobo Raymond MD at [facility] [id number] / [id number] / Ingevity+ Is-1 Bi Positive Fix Ra/Rv 52cm Implanted:Qty: 1 on 09/04/2022 by Bobo Raymond MD at [facility] [id number] / [id number] / Closure,Watchman,Flxpro,35mm - [id number] Implanted:Qty: 1 on 02/06/2025 by [facility] Atrial Appendage ClosureLeft: CoronaryBoston [id number] / / [id number] Procedures * The patient is currently admitted. The information in this section might not be complete until the patient is discharged. Procedure NamePriorityDate/TimeAssociated DiagnosisCommentsGOLD TOPRoutine 06/06/2025 8:00 AM EST EXTRA XQUJNTjlsxok82/19/2025 8:00 AM EST BASIC METABOLIC MUYJOUAJQ87/19/2025 7:45 AM EST VDSBDTF0106/06/2025 7:45 AM EST BLOOD DKXAFZNZgrpwnk76/19/2025 6:41 AM ESTTRANSESOPHAGEAL ECHO (MASON) W/ COLOR OIJLWyvprmv72/18/2025 11:00 AM EST POCT GLUCOSE METER UNSOLICITED HVXJOMOYuaztvc78/18/2025 1:57 AM EST BLOOD CULTURE IDENTIFICATION PCR PANEL, EANIDDIGdpdrfq71/18/2025 1:39 AM EST BLOOD MMLLNYBDFHN86/18/2025 1:39 AM ESTCBC WITH AUTO JOBUNSMSZHJPOUOE32/18/2025 1:38 AM EST MVVKASGCNHZGQ53/18/2025 1:38 AM EST PROTIME-AHUCLFM0606/05/2025 1:38 AM EST WRLRSBYK97/18/2025 1:38 AM EST COMPREHENSIVE METABOLIC EFJZJGKOV37/18/2025 1:38 AM EST CBC AND OUWAGDFUOHRJQYIG91/18/2025 1:38 AM EST BLOOD MPKTXGCNDRA90/18/2025 1:38 AM ESTCARDIAC DEVICE CHECK CHECK - REMOTE Xexygym6005/31/2025 11:17 AM EST Pre-operative cardiovascular examination, ICD in place CARDIAC DEVICE CHECK CHECK - ZKHDLEBlqrjtn05/04/2025 10:04 AM EST Pre-operative cardiovascular examination, ICD in place CARDIAC DEVICE CHECK - REMOTE - PILLzntjhi35/31/2025 12:00 AM EDTCARDIAC DEVICE CHECK CHECK - ZVPCESLbfdlca72/21/2025 9:23 AM EDT Pre-operative cardiovascular examination, ICD in place BASIC METABOLIC PANELAdd-On05/04/2025 4:18 AM EDT CBC WITH AUTO JURDTLSWSKIFOgwaruc60/17/2025 4:18 AM EDT CXJKCUPFYGGxburtv80/17/2025 4:18 AM EDT TJQCOUPKVMjmnome89/17/2025 4:18 AM EDT CBC AND SMQKEHGVBDLBVqkoaxe22/17/2025 4:18 AM EDT CARDIAC DEVICE CHECK - REMOTE - VBTWqeavzy02/17/2025 12:00 AM EDTUS NECKRoutine 05/03/2025 3:56 PM EDT BODY FLUID DHTXSSQFkrxjdw42/16/2025 12:59 PM EDT RESPIRATORY ASSESS AND TREAT YCLJPCZASdwisjk35/16/2025 8:00 AM EDTBASIC METABOLIC PANELAdd-On05/03/2025 3:51 AM EDT CBC WITH AUTO IFKNATGQSZSZCvuzypa49/16/2025 3:51 AM EDT AYGASRJXABLvzbcwf07/16/2025 3:51 AM EDT DSJABNPDDAkzivpl50/16/2025 3:51 AM EDT CBC AND DGHOKAJXQBQAVjuhnsn31/16/2025 3:51 AM EDT RESPIRATORY ASSESS AND TREAT WZIXTWJFWfxhzci99/15/2025 8:00 AM EDTCBC WITH AUTO GGDWHRXJHTFVGarwckt94/15/2025 3:13 AM EDT ADJGLNTMNGZewnutt77/15/2025 3:13 AM EDT NHTZYXTOWGygfdyg72/15/2025 3:13 AM EDT COMPREHENSIVE METABOLIC BYVJSAvjriaq46/15/2025 3:13 AM EDT CBC AND GRUJJYXDUIKKXgpbbys70/15/2025 3:13 AM EDT JBJFVIGWLORwujg22/14/2025 8:30 AM EDT VEOTOERMEZnmjc08/14/2025 8:30 AM EDT BASIC METABOLIC HGUQPTbfyf82/14/2025 8:30 AM EDT RESPIRATORY ASSESS AND TREAT GGCWSKTURnseqdt43/14/2025 8:00 AM EDTPHOSPHORUS Add-On05/01/2025 3:05 AM EDT MAGNESIUMAdd-On05/01/2025 3:05 AM EDT CBC WITH AUTO IJALVXYOPWTOPkffxaz47/14/2025 3:05 AM EDT COMPREHENSIVE METABOLIC NBMXMLsnionp52/14/2025 3:05 AM EDT CBC AND TTNHLMHMXACNAunvbee39/14/2025 3:05 AM EDT FSQLCTCZMWOcshl58/14/2025 12:47 AM EDT ZPJOZXXQMNegkx54/14/2025 12:47 AM EDT BASIC METABOLIC ADUAZCkrek77/14/2025 12:47 AM EDT IQZJPUTUZKBovrr00/13/2025 8:12 PM EDT OEGMVPMTLSkwhu39/13/2025 8:12 PM EDT BASIC METABOLIC SMDEXMzwum51/13/2025 8:12 PM EDT PHOSPHORUSPending Eyhheccmz16/13/2025 3:22 PM EDT MAGNESIUMPending Fcczaykdk40/13/2025 3:22 PM EDT BASIC METABOLIC PANELPending Feotnrlcs61/13/2025 3:22 PM EDT PHOSPHORUSPending Stjzpxobq27/13/2025 11:13 AM EDT MAGNESIUMPending Tqicjmcwr85/13/2025 11:13 AM EDT BASIC METABOLIC PANELPending Plnkyzhzb71/13/2025 11:13 AM EDT LIMITED ECHOCARDIOGRAM (TTE) W/ LTD DOPPLER AND COLOR PTFZUsbpots61/13/2025 8:35 AM EDT RESPIRATORY ASSESS AND TREAT BGMWATHYYrtktyf51/13/2025 8:00 AM EDTPHOSPHORUS Pending Kxvhtgoya43/13/2025 7:48 AM EDT MAGNESIUMPending Tbcvdgdeb85/13/2025 7:48 AM EDT BASIC METABOLIC PANELPending Jkglvsklw35/13/2025 7:48 AM EDT CBC WITH AUTO DIFFERENTIALPending Amdpeiwpr32/13/2025 4:10 AM EDT COMPREHENSIVE METABOLIC PANELPending Vzaztfowq31/13/2025 4:10 AM EDT CBC AND WDORJNBWECCTHtmehdz85/13/2025 4:10 AM EDT PHOSPHORUSPending Jsqtwdloi60/13/2025 4:10 AM EDT MAGNESIUMPending Jzahclivy11/13/2025 4:10 AM EDT PHOSPHORUSPending Txczncrbd82/13/2025 12:09 AM EDT MAGNESIUMPending Jrkqqdffv38/13/2025 12:09 AM EDT BASIC METABOLIC PANELPending Inacyjxkw33/13/2025 12:09 AM EDT PHOSPHORUSPending Hcsjjszma65/12/2025 8:02 PM EDT MAGNESIUMPending Yxuugxwmu06/12/2025 8:02 PM EDT BASIC METABOLIC PANELPending Dusvzljsi36/12/2025 8:02 PM EDT BLOOD GAS, VENOUSPending Pmwpmoztp03/12/2025 3:38 PM EDT PHOSPHORUSPending Hrtiomvxt98/12/2025 3:38 PM EDT MAGNESIUMPending Ktfgdnoyp74/12/2025 3:38 PM EDT BASIC METABOLIC PANELPending Knsaucpsd32/12/2025 3:38 PM EDT PHOSPHORUSPending Wgplsxben44/12/2025 1:02 PM EDT MAGNESIUMPending Yfkhirfhd62/12/2025 1:02 PM EDT BASIC METABOLIC PANELPending Fegyutyhe92/12/2025 1:02 PM EDT XR CHEST 1 AAKTOrgzoes67/12/2025 11:20 AM EDT FERRITINAdd-On04/29/2025 8:14 AM EDT IRON AND TIBCAdd-On04/29/2025 8:14 AM EDT PHOSPHORUSPending Ckktlzdfz38/12/2025 8:14 AM EDT MAGNESIUMPending Mjuxdrggl78/12/2025 8:14 AM EDT BASIC METABOLIC PANELPending Pximsxgaz57/12/2025 8:14 AM EDT RESPIRATORY ASSESS AND TREAT YKKTCMGPFcxgaun03/12/2025 8:00 AM EDTCBC WITH AUTO DIFFERENTIALPending Huhqbgynk13/12/2025 3:04 AM EDT CBC AND TUBYDFFSHCYLLmzrkyx11/12/2025 3:04 AM EDT PHOSPHORUSPending Ujyfgnvcg56/12/2025 3:04 AM EDT MAGNESIUMPending Ajezczcvv40/12/2025 3:04 AM EDT BASIC METABOLIC PANELPending Krbyrinfm16/12/2025 3:04 AM EDT COMPREHENSIVE METABOLIC PANELPending Yampylroe29/12/2025 2:38 AM EDT AMMONIAPending Lnmcsyeao11/12/2025 2:38 AM EDT CRRT THERAPY FLUID QDOKNMyylpvy92/12/2025 12:30 AM EDTPHOSPHORUSPending Wwjalzqvu86/12/2025 12:22 AM EDT MAGNESIUMPending Pajdmxqyi57/12/2025 12:22 AM EDT BASIC METABOLIC PANELPending Imuveqeim38/12/2025 12:22 AM EDT PHOSPHORUSPending Ohdxznncu25/11/2025 8:10 PM EDT MAGNESIUMPending Zpjunmadw22/11/2025 8:10 PM EDT BASIC METABOLIC PANELPending Mqiraptuo59/11/2025 8:10 PM EDT PHOSPHORUSPending Fcrerfgrz36/11/2025 3:57 PM EDT COMPREHENSIVE METABOLIC PANELPending Sjgmxsmjz57/11/2025 3:57 PM EDT MAGNESIUMPending Dvxzvbvne22/11/2025 3:57 PM EDT PHOSPHORUSPending Tywnvtuql19/11/2025 1:46 PM EDT MAGNESIUMPending Jqnvzachz59/11/2025 1:46 PM EDT BASIC METABOLIC PANELPending Ddiskdsaf64/11/2025 1:46 PM EDT POCT GLUCOSE METER UNSOLICITED ZLZPDDHWvhntxf66/11/2025 1:44 PM EDT ABG UNSOLICITED CJGSIICPzczhop49/11/2025 8:54 AM EDT PHOSPHORUSPending Oplvzetcx45/11/2025 8:37 AM EDT MAGNESIUMPending Gmsaygiit35/11/2025 8:37 AM EDT BASIC METABOLIC PANELPending Dqrntyjlm63/11/2025 8:37 AM EDT ABG IRTYNaemivq96/11/2025 8:19 AM EDTRESPIRATORY ASSESS AND TREAT PROTOCOL Ezyxogn3504/28/2025 8:00 AM EDTCBCPending Zwxoqhtxq63/11/2025 3:21 AM EDT RESPIRATORY ASSESS AND TREAT CREBXLYYWpdomwi81/11/2025 3:10 AM EDTPHOSPHORUS Add-On04/28/2025 3:06 AM EDT MAGNESIUMAdd-On04/28/2025 3:06 AM EDT BASIC METABOLIC PANELPending Rnzkctjce49/11/2025 3:06 AM EDT XR ABDOMEN 1 MIMJDTNS34/11/2025 12:50 AM EDT CRRT THERAPY FLUID CPNRNSwmbnar96/11/2025 12:30 AM HTKDNENUZRFWWKqhmf18/11/2025 12:06 AM EDT TNOZYKWDXHcgfq96/11/2025 12:06 AM EDT BASIC METABOLIC MBXIPVyilk07/11/2025 12:06 AM EDT MAGNESIUMAdd-On04/27/2025 7:57 PM EDT HEMOGLOBIN AND HEMATOCRIT, RPLFHVatloyd23/10/2025 7:57 PM EDT BASIC METABOLIC UGYVNVnllbkw91/10/2025 7:57 PM EDT CRRT THERAPY FLUID DLRAJInchfem35/10/2025 6:18 PM KGDIFLXHMGXSBFagvm75/10/2025 5:38 PM EDT SJNDOGCADBovmm52/10/2025 5:38 PM EDT BASIC METABOLIC YHQGZYfmmd94/10/2025 5:38 PM EDT POCT GLUCOSE METER UNSOLICITED TBRAVWYHfizbtt05/10/2025 5:14 PM EDT POCT GLUCOSE METER UNSOLICITED MAKEMHSMsdvzlj42/10/2025 12:01 PM EDT POCT GLUCOSE METER UNSOLICITED TJSIXKMOskakty41/10/2025 10:07 AM EDT GLITGJSHQRGvjba18/10/2025 5:36 AM EDT YZRJTSEDHJlcsv91/10/2025 5:36 AM EDT BASIC METABOLIC NSSVJQmsmc22/10/2025 5:36 AM EDT YMDNfdoowd65/10/2025 5:36 AM EDT CO-TUNZBYHJIvnssjy99/10/2025 4:25 AM EDT NRIEGFLBEVUdvuj44/09/2025 11:59 PM EDT ARJNXGAKCNbjtv79/09/2025 11:59 PM EDT BASIC METABOLIC HASWHXxjij22/09/2025 11:59 PM EDT MMBPFZSXMHBezlb88/09/2025 4:24 PM EDT BASIC METABOLIC BZAZBXnkjb35/09/2025 4:24 PM EDT JSJWOKOOKPsdsn62/09/2025 4:24 PM EDT UREA NITROGEN, URINEPending Zbnaqxbix46/09/2025 8:40 AM EDT SODIUM, URINE, RANDOMPending Dutsmcyzz11/09/2025 8:40 AM EDT CREATININE, URINE, RANDOMPending Dzsjskwdy12/09/2025 8:40 AM EDT URINALYSISPending Vupqgxpss02/09/2025 8:40 AM EDT KHETuxpydw57/09/2025 3:05 AM EDT RZNMPFMECQmslryz24/09/2025 3:05 AM EDT BASIC METABOLIC UAYCEJtfuhgy46/09/2025 3:05 AM EDT ZSHIHVHZEFWuycsjt85/09/2025 3:05 AM EDT CO-ZLZMDDNOZmrwwxs72/09/2025 2:39 AM EDT XR CHEST 1 PFUDKOYL52/08/2025 4:17 PM EDT BASIC METABOLIC PANELPending Ircejzynp14/08/2025 1:12 PM EDT PHOSPHORUSPending Ydphozviz57/08/2025 3:22 AM EDT MAGNESIUMPending Gvskqhqti44/08/2025 3:22 AM EDT CBCPending Hubjbdrof59/08/2025 3:22 AM EDT BASIC METABOLIC PANELPending Cajjjfskh34/08/2025 3:22 AM EDT SWAN (FLOW DIRECTED CATH) RWGLERXZCMqoafor05/07/2025 3:42 PM EDT Right ventricular dysfunction RIGHT HEART XMHGZtuvexb22/07/2025 3:42 PM EDT Right ventricular dysfunction LIPID PANELAdd-On04/24/2025 4:07 AM EDT MAGNESIUMPending Zebpnegdy32/07/2025 4:07 AM EDT CBCPending Cysycemyx54/07/2025 4:07 AM EDT BASIC METABOLIC PANELPending Wamcercfo28/07/2025 4:07 AM EDT CARDIAC DEVICE CHECK - REMOTE - THBNsiyyiy67/07/2025 12:00 AM EDTCTA CHEST W IV SHENCQZAQMMV95/06/2025 4:47 PM EDT LIMITED ECHOCARDIOGRAM (TTE) W/ LTD DOPPLER AND COLOR XMJWJzcunfh58/06/2025 7:56 AM EDT WNNOARFHBRTQT82/06/2025 5:02 AM EDT CBC WITH AUTO DIFFERENTIALPending Ytzvysyod56/12/2024 5:02 AM EDT CBC AND XNDUEGBHRDTNJpqnnku69/06/2025 5:02 AM EDT COMPREHENSIVE METABOLIC HGLPMFMBN02/06/2025 5:02 AM EDT C-REACTIVE PROTEINPending Unrowzlkw48/06/2025 5:[address] CERVICAL SPINE WO IV RSXGCXLMLVWZ48/06/2025 3:[address] HEAD WO IV JKZCQLKWQJJU67/06/2025 3:59 AM EDT ECG 12-UXYCQIZU52/06/2025 3:34 AM EDT LIMITED ECHOCARDIOGRAM (TTE) W/ LTD DOPPLER AND COLOR HPEWDqbmika75/03/2025 1:51 PM EDT VPGNNTIXEWFlfadrn91/03/2025 12:25 PM EDT BLOOD DVVHHKDQmlyejz29/03/2025 10:09 AM EDT BLOOD CGZOKCBQupppkx12/03/2025 10:09 AM EDT CORTISOLSTAT Add-on04/20/2025 5:15 AM EDT WWWPuojuwl54/03/2025 5:15 AM EDT BASIC METABOLIC PMFIUOvqxlyv80/03/2025 5:15 AM EDT SODIUM, URINE, CGXGQAWejzpyt59/02/2025 8:28 PM EDT ECG 12-JAWSNlsgqxh69/02/2025 6:35 PM EDT NFMIPYSOAGEanhexv90/02/2025 6:26 PM EDT B-TYPE NATRIURETIC VGZIAVMQrnokro59/02/2025 6:25 PM EDT LIMITED ECHO (TTE)Asreuur1604/19/2025 3:37 PM EDT PATHOLOGY BPEDRXTrdlrvf78/02/2025 3:23 PM EDT NON-SORTER LUMBER STRAIGHTENER CYTOLOGY - CELLULAR UFDQZjdzlrj37/02/2025 3:23 PM EDT BODY FLUID CELL BGDKQKQIIMATQgvtrtu13/02/2025 3:23 PM EDT BODY FLUID CELL COUNT WITH CDYBHGGPMZFQPdkauon85/02/2025 3:23 PM EDT BODY FLUID CELL COUNT WITH KGCJRSWALVKIHyqcxkb85/02/2025 3:23 PM EDT ANAEROBIC ZFGYIDEXlvbrjx60/02/2025 3:23 PM EDT BODY FLUID CSWPFNZRuoqqcn39/02/2025 3:23 PM EDT BODY FLUID CULTURE AND ANAEROBIC OEDVXBAHoqenhg10/02/2025 3:23 PM EDT TRHGGOHAOLWWXQERKDYuhtyzy20/02/2025 3:22 PM EDT Pericardial effusion RIGHT HEART EVKUBjnvsoh73/02/2025 3:22 PM EDT Pericardial effusion LEFT HEART GQJWHwzvxai89/02/2025 3:22 PM EDT Pericardial effusion POCT HBO2%Auerxdu0904/19/2025 2:47 PM EDT POCT HBO2%Ramxxof8904/19/2025 2:47 PM EDT LIGHT GREEN XGARvqdmty16/02/2025 2:44 PM EDT QKBVfbjbrm42/02/2025 2:44 PM EDT C-REACTIVE VGBJUGJRedvkgt11/02/2025 2:44 PM EDT LAVENDER WFZZisgbkq98/02/2025 2:32 PM EDT EXTRA XTWPEObzwfjl81/02/2025 2:32 PM EDT COMPLETE ECHO (TTE)Csntyls8504/19/2025 1:13 PM EDT SEDIMENTATION RATEAdd-On04/19/2025 12:14 PM EDT HIGH SENSITIVITY TROPONIN IAdd-On04/19/2025 12:14 PM EDT COMPREHENSIVE METABOLIC FOXKAGlkklsr99/02/2025 12:14 PM EDT PDJClwvsre53/02/2025 12:14 PM EDT ECG 12-EEPIFfliwer39/02/2025 12:09 PM EDT CTA CHEST W IV PWBKNFEOKuvegbs84/08/2025 5:07 PM EDT Paroxysmal atrial fibrillation (CMS/HCC) Presence of Watchman left atrial appendage closure device CREATININE, DCAEYUbhsbkz23/08/2025 2:43 PM EDT Prediabetes BXLQbtgvkr16/08/2025 2:43 PM EDT Paroxysmal atrial fibrillation (CMS/HCC) BASIC METABOLIC FNDQWIwxtrgb25/08/2025 2:43 PM EDT Paroxysmal atrial fibrillation (CMS/HCC) CARDIAC DEVICE CHECK CHECK - EYYLTMGvoptzm80/08/2025 11:56 AM EDT Pre-operative cardiovascular examination, ICD in place CARDIAC DEVICE CHECK - REMOTE - ARJDuyxstf62/05/2025 12:00 AM EDTfrom Last 3 Months Results * Gold Top (06/06/2025 8:00 AM EST)ComponentValueRef RangeTest MethodAnalysis TimePerformed AtPathologist SignatureExtra TubeHold for add-ons.06/06/2025 10:01 AM [facility] ([facility])Comment:Auto resulted.Specimen (Source) Anatomical Location / LateralityCollection Method / VolumeCollection Time Received TimeBloodVenous blood specimen / Hazkpnh2206/06/2025 8:00 AM EST 06/06/2025 8:27 AM EST Narrative Authorizing ProviderResult TypeResult StatusSarmed Yoselyn MURRAY BLOOD ORDERABLES Final ResultPerforming OrganizationAddressCity/State/ZIP CodePhone Number [facility] ([facility]) [address] [place] [address] * (ABNORMAL) CBC (06/06/2025 7:45 AM EST) Only the most recent of9 resultswithin the time period is included. ComponentValueRef RangeTest MethodAnalysis TimePerformed AtPathologist Signature Auto WBC11.12(H)4.00 - 10.60 10*3/uL06/06/2025 9:02 AM [facility] ([facility])RBC2.96(L)4.20 - 5.70 10*6/uL06/06/2025 9:02 AM [facility] ([facility])Bbcpyjbquf01.2(L)13.0 - 17.0 g/dL06/06/2025 9:02 AM [facility] ([facility])Zclndktjfi04.0(L)39.0 - 50.0 %06/06/2025 9:02 AM [facility] ([facility])Comment:Spun UcbrffmevgBSY45.882.0 - 98.0 fL06/06/2025 9:02 AM [facility] ([facility])MCH34.5(H)27.0 - 33.0 pg06/06/2025 9:02 AM [facility] ([facility])MCHC36.5(H)32.0 - 35.0 g/dL06/06/2025 9:02 AM [facility] ([facility])Comment:Calculated WuwzybGGU58.911.5 - 15.0 %06/06/2025 9:02 AM [facility] ([facility])Rxhtgqzpm505958 - 400 10*3/uL06/06/2025 9:02 AM [facility] ([facility])Specimen (Source)Anatomical Location / LateralityCollection Method / VolumeCollection TimeReceived TimeBloodVenous blood specimen / Unknown Venipuncture / Kocnjfg5006/06/2025 7:45 AM EST06/06/2025 8:25 AM EST Narrative Authorizing ProviderResult TypeResult StatusSarmed Yoselyn MURRAY BLOOD ORDERABLES Final ResultPerforming OrganizationAddressCity/State/ZIP CodePhone Number [facility] ([facility]) [address] [place] [address] * (ABNORMAL) Basic metabolic panel (06/06/2025 7:45 AM EST) Only the most recent of32 resultswithin the time period is included. ComponentValueRef RangeTest MethodAnalysis TimePerformed AtPathologist Signature Assjxa965(L)136 - 145 mmol/L108/06/2024 9:50 AM [facility] ([facility]) Potassium4.23.5 - 5.1 mmol/L108/06/2024 9:50 AM [facility] ([facility]) Mfmhotcj82486 - 107 mmol/L108/06/2024 9:50 AM [facility] ([facility])CO220 (L)21 - 31 mmol/L108/06/2024 9:50 AM [facility] ([facility])KFZ247 - 25 mg/dL06/06/2025 9:50 AM [facility] ([facility])Creatinine1.000.70 - 1.30 mg/dL06/06/2025 9:50 AM [facility] ([facility])Fuissea4988 - 100 mg/dL 06/06/2025 9:50 AM [facility] ([facility])Calcium8.4(L)8.6 - 10.3 mg/dL 06/06/2025 9:50 AM [facility] ([facility])Anion Tui695 - 20 mmol/L 06/06/2025 9:50 AM [facility] ([facility])eGFR81.5>60.0 mL/min/1.73m*2 06/06/2025 9:50 AM [facility] ([facility])Comment:[facility]???s estimated glomerular filtration rate (eGFR) will no [...] affect any one group of individuals. BUN/Creatinine Ratio22.011 9:50 AM [facility] ([place])Specimen (Source)Anatomical Location / LateralityCollection Method / VolumeCollection TimeReceived TimeBloodVenous blood specimen / UnknownVenipuncture / Unknown 06/06/2025 7:45 AM EST06/06/2025 8:25 AM EST Narrative Authorizing ProviderResult TypeResult StatusSarmed Yoselynfatoumata MURRAY BLOOD ORDERABLES Final ResultPerforming OrganizationAddressCity/State/ZIP CodePhone Number [facility] ([place]) [address] [place] [address] * Blood culture (06/06/2025 6:41 AM EST) Only the most recent of3 resultswithin the time period is included. Specimen (Source)Anatomical Location / LateralityCollection Method / Volume Collection TimeReceived TimeBloodVenous blood specimen / Unknown Narrative Authorizing ProviderResult TypeResult StatusHistorical Provider TERRI MICROBIOLOGY - GENERAL ORDERABLESFinal Result * TRANSESOPHAGEAL ECHO (MASON) W/ COLOR FLOW (06/05/2025 11:00 AM EST)Anatomical RegionLateralityModalityOtherSpecimen (Source)Anatomical Location / Laterality Collection Method / VolumeCollection TimeReceived Time06/05/2025 10:06 AM EST Narrative 06/05/2025 4:46 PM EST 1 [facility] Heart Station [address] [place] [address] [phone] (fax) Transesophageal Echocardiogram-[facility] Name: KRISTY DOHERTY Study Date: 06/05/2025 10:06 AM B/P: 102 mmHg/73 mmHg HR: Date of : 1955 Location: [facility] Height: 68 in. Age: 69 year(s) Patient Room: 3102 Weight: 159 lb. Gender: Male Patient Status: InPt BSA: 1.85 m2 Indication: Bactermia, S/P 35 mm Watchman device FLX, H/O Pericardiocentesis, ICD Examination: MASON (Transesophageal Echo / CFI) Image Quality: Good Patient Consent: Informed, written consent was obtained for the procedure Exam Location: A MASON was performed in the [facility] without complications Anesthesia Pharyngeal anesthesia with viscous [...] No pericardial effusion. Procedure Staff Reading Group: [facility] [employer] Operator: Bryanna Cazares RDCS ??Ordering Physician: Bebo Dominguez MD ?? Procedure Note Fani Denney MD - 06/05/2025 1 [facility] Heart Station [address] [place] [address] [phone] (fax) Transesophageal Echocardiogram-[facility] Name: KRISTY DOHERTY Study Date: 06/05/2025 10:06 AM B/P: 102 mmHg/73 mmHg HR: Date of : 1955 Location: [facility] Height: 68 in. Age: 69 year(s) Patient Room: 3102 Weight: 159 lb. Gender: Male Patient Status: InPt BSA: 1.85 m2 Indication: Bactermia, S/P 35 mm Watchman device FLX, H/O Pericardiocentesis, ICD Examination: MASON (Transesophageal Echo / CFI) Image Quality: Good Patient Consent: Informed, written consent was obtained for the procedure Exam Location: A MASON was performed in the [facility] without complications Anesthesia Pharyngeal anesthesia with viscous [...] No pericardial effusion. Procedure Staff Reading Group: [facility] [employer] Operator: Bryanna Cazares RDCS Ordering Physician: Bebo Dominguez MD Authorizing ProviderResult TypeResult StatusBebo Dominguez [facility] [place] ECHO PROCEDURES Final Result * POCT glucose meter (06/05/2025 1:57 AM EST) Only the most recent of5 resultswithin the time period is included. ComponentValueRef RangeTest MethodAnalysis TimePerformed AtPathologist Signature Glucose [id number] - 105 mg/dL06/05/2025 2:09 AM [facility] ([place]) Comment:yalednf0Songeiso (Source)Anatomical Location / LateralityCollection Method / VolumeCollection TimeReceived TimeBloodCapillary blood specimen / Aomfxog1906/05/2025 1:57 AM EST06/05/2025 2:09 AM EST Narrative [facility] ([facility]) - 06/05/2025 2:09 AM EST Waived Testing in the ED is performed under the ED CLIA certificate #[id number]. Authorizing ProviderResult TypeResult StatusOmar Samara MURRAY BLOOD ORDERABLES Final ResultPerforming OrganizationAddressCity/State/ZIP CodePhone Number [facility] ([facility]) [address] [place] [address] * (ABNORMAL) Blood culture identification panel, aerobic (06/05/2025 1:39 AM EST)ComponentValueRef RangeTest MethodAnalysis TimePerformed AtPathologist SignatureEnterococcus faecalisNot DetectedNot Vsauvalb01/19/2025 12:11 AM EST [facility] ([facility])Enterococcus faeciumNot DetectedNot Detected 06/06/2025 12:11 AM [facility] ([facility])Listeria monocytogenesNot DetectedNot Glqldgkd01/19/2025 12:11 AM [facility] ([facility]) Staphylococcus spp.Detected(AA)Not Vpjlphtq28/19/2025 12:11 AM [facility] ([facility])Staphylococcus aureusNot DetectedNot Ltpngwpx51/19/2025 12:11 AM [facility] ([facility])Staphylococcus epidermidisNot Detected Not Vlfvevwo64/19/2025 12:11 AM [facility] ([facility])Staphylococcus lugdunensisDetected(AA)Not Eewsmdyi31/19/2025 12:11 AM [facility] ([facility])Streptococcus spp.Not DetectedNot Dxxpgkzo15/19/2025 12:11 AM [facility] ([facility])Streptococcus agalactiae (Group B)Not DetectedNot Vxauwwuc93/19/2025 12:11 AM [facility] ([facility])Streptococcus pneumoniaeNot DetectedNot Uhhzdbfu05/19/2025 12:11 AM [facility] [facility])Streptococcus pyogenes (Group A)Not DetectedNot Tewzmmel35/19/2025 12:11 AM [facility] ([facility])Acinetobacter calcoaceticus-baumannii complexNot DetectedNot Iifbyxay57/19/2025 12:11 AM [facility] ([facility])Bacteroides fragilisNot DetectedNot Ypmvhymi37/19/2025 12:11 AM [facility] ([facility])EnterobacteralesNot DetectedNot Ukiodlee37/19/2025 12:11 AM [facility] ([facility])Enterobacter cloacae complexNot Detected Not Boffcdwp63/19/2025 12:11 AM [facility] ([facility])Escherichia coli Not DetectedNot Pzejitsy09/19/2025 12:11 AM [facility] ([facility]) Klebsiella aerogenesNot DetectedNot Lqghdaal16/19/2025 12:11 AM [facility] ([facility])Klebsiella oxytocaNot DetectedNot Kuoenerh22/19/2025 12:11 AM [facility] ([facility])Klebsiella pneumoniae groupNot Detected Not Zrftigie66/19/2025 12:11 AM [facility] ([facility])Proteus spp.Not DetectedNot Xvhfgmko81/19/2025 12:11 AM [facility] ([facility]) Salmonella spp.Not DetectedNot Ijuxbjnp88/19/2025 12:11 AM [facility] ([facility])Serratia marcescensNot DetectedNot Cxzkkcsb62/19/2025 12:11 AM [facility] ([facility])Haemophilus influenzaeNot DetectedNot Detected 06/06/2025 12:11 AM [facility] ([facility])Neisseria meningitidisNot DetectedNot Zfekwauk62/19/2025 12:11 AM [facility] ([facility]) Pseudomonas aeruginosaNot DetectedNot Wthuckve82/19/2025 12:11 AM [facility] ([facility])Stenotrophomonas maltophiliaNot DetectedNot Detected 06/06/2025 12:11 AM [facility] ([facility])Annette albicansNot Detected Not Xqvqddxp95/19/2025 12:11 AM [facility] ([facility])Annette aurisNot DetectedNot Qwtefiyc03/19/2025 12:11 AM [facility] ([facility])Annette glabrataNot DetectedNot Zgndpxav27/19/2025 12:11 AM [facility] ([facility])Annette kruseiNot DetectedNot Nipiagkw69/19/2025 12:11 AM [facility] ([facility])Annette parapsilosisNot DetectedNot Bdeimevu87/19/2025 12:11 AM [facility] ([facility])Annette tropicalisNot DetectedNot Tkoizbhd85/19/2025 12:11 AM [facility] ([facility])Cryptococcus neoformans/gattiiNot DetectedNot Jjgkwwqf97/19/2025 12:11 AM [facility] ([facility])mecA/CNot DetectedNot Siktnses15/19/2025 12:11 AM [facility] ([facility])Specimen (Source)Anatomical Location / LateralityCollection Method / VolumeCollection TimeReceived TimeBloodVenous blood specimen / Unknown Venipuncture / Leyahnw3806/05/2025 1:39 AM EST06/05/2025 1:44 AM EST Narrative [facility] ([facility]) - 06/06/2025 12:11 AM EST [employer] [...] - GENERAL ORDERABLESFinal ResultPerforming OrganizationAddressCity/State/ZIP CodePhone Number [facility] ([facility]) [address] [place] [address] * (ABNORMAL) CBC auto differential (06/05/2025 1:38 AM EST) Only the most recent of8 resultswithin the time period is included. ComponentValueRef RangeTest MethodAnalysis TimePerformed AtPathologist Signature Auto WBC9.664.00 - 10.60 10*3/uL06/05/2025 1:55 AM [facility] ([facility]) RBC3.03(L)4.20 - 5.70 10*6/uL06/05/2025 1:55 AM [facility] ([facility]) Hemoglobin9.1(L)13.0 - 17.0 g/dL06/05/2025 1:55 AM [facility] ([facility]) Lrnggrjbfo57.4(L)39.0 - 50.0 %06/05/2025 1:55 AM [facility] ([facility]) MCV90.482.0 - 98.0 fL06/05/2025 1:55 AM [facility] ([facility])MCH30.027.0 - 33.0 pg06/05/2025 1:55 AM [facility] ([facility])MCHC33.232.0 - 35.0 g/dL06/05/2025 1:55 AM [facility] ([facility])RDW15.1(H)11.5 - 15.0 % 06/05/2025 1:55 AM [facility] ([facility])Neutrophils %74.2(H)40.0 - 72.0 %06/05/2025 1:55 AM [facility] ([facility])Lymphocytes %13.9(L)20.0 - 45.0 %06/05/2025 1:55 AM [facility] ([facility])Monocytes %10.85.0 - 12.0 % 06/05/2025 1:55 AM [facility] ([facility])Eosinophils %0.30.0 - 6.0 % 06/05/2025 1:55 AM [facility] ([facility])Basophils %0.20.0 - 1.0 % 06/05/2025 1:55 AM [facility] ([facility])Neutrophils Absolute7.171.60 - 7.60 10*3/uL06/05/2025 1:55 AM [facility] ([facility])Lymphocytes Absolute 1.341.20 - 4.00 10*3/uL06/05/2025 1:55 AM [facility] ([facility])Monocytes Absolute1.04(H)0.10 - 1.00 10*3/uL06/05/2025 1:55 AM [facility] ([facility])Eosinophils Absolute0.030.00 - 0.50 10*3/06/05/2025 1:55 AM [facility] ([facility])Basophils Absolute0.020.00 - 0.20 10*3/uL06/05/2025 1:55 AM [facility] ([facility])Ksijrutlc084557 - 400 10*3/06/05/2025 1:55 AM EST [facility] ([facility])nRBC %0.00 %06/05/2025 1:55 AM [facility] ([facility])Immature Granulocytes %0.60.0 - 1.0 %06/05/2025 1:55 AM [facility] ([facility])Immature Granulocytes Absolute0.060.00 - 0.20 10*3/06/05/2025 1:55 AM [facility] ([facility])Specimen (Source)Anatomical Location / LateralityCollection Method / VolumeCollection TimeReceived TimeBloodVenous blood specimen / UnknownVenipuncture / Yqoglwa3406/05/2025 1:38 AM EST06/05/2025 1:45 AM EST Narrative Authorizing ProviderResult TypeResult StatusIdanne MURRAY BLOOD ORDERABLESFinal ResultPerforming OrganizationAddressCity/State/ZIP CodePhone Number [facility] ([facility]) [address] [place] [address] * (ABNORMAL) APTT (06/05/2025 1:38 AM EST)ComponentValueRef RangeTest Method Analysis TimePerformed AtPathologist GgptojthifRPO95.0(H)25.0 - 35.0 Seconds 06/05/2025 2:06 AM [facility] ([facility])Comment:Clinical significance of the APTT is questionable in the presence of heparin.Specimen (Source) Anatomical Location / LateralityCollection Method / VolumeCollection Time Received TimeBloodVenous blood specimen / UnknownVenipuncture / Unknown 06/05/2025 1:38 AM EST06/05/2025 1:44 AM EST Narrative Authorizing ProviderResult TypeResult StatusIdanne MURRAY BLOOD ORDERABLESFinal ResultPerforming OrganizationAddressCity/State/ZIP CodePhone Number [facility] ([facility]) [address] [place] [address] * (ABNORMAL) Protime-INR (06/05/2025 1:38 AM EST)ComponentValueRef RangeTest MethodAnalysis TimePerformed AtPathologist IidejotjfEctvhoe64.5(H)12.3 - 14.8 Lzlvopv9706/05/2025 2:05 AM [facility] ([facility])INR1.22(H)0.90 - 1.10 06/05/2025 2:05 AM [facility] ([facility])Comment: [facility] RECOMMENDED INR FOR WARFARIN THERAPY CONDITION ?INR [...] TimeReceived TimeBloodVenous blood specimen / UnknownVenipuncture / Rjxkmkk4706/05/2025 1:38 AM EST06/05/2025 1:44 AM EST Narrative Authorizing ProviderResult TypeResult StatusIdrees Adam [facility] BLOOD ORDERABLESFinal ResultPerforming OrganizationAddressCity/State/ZIP CodePhone Number [facility] ([facility]) [address] [place] [address] * (ABNORMAL) Magnesium (06/05/2025 1:38 AM EST) Only the most recent of34 resultswithin the time period is included. ComponentValueRef RangeTest MethodAnalysis TimePerformed AtPathologist Signature Magnesium1.5(L)1.9 - 2.7 mg/dL06/05/2025 2:12 AM [facility] ([facility]) Specimen (Source)Anatomical Location / LateralityCollection Method / Volume Collection TimeReceived TimeBloodVenous blood specimen / UnknownVenipuncture / Oucvcmf7706/05/2025 1:38 AM EST06/05/2025 1:45 AM EST Narrative Authorizing ProviderResult TypeResult StatusIdrees Adam [facility] BLOOD ORDERABLESFinal ResultPerforming OrganizationAddressCity/State/ZIP CodePhone Number [facility] ([facility]) [address] [place] [address] * (ABNORMAL) Comprehensive metabolic panel (06/05/2025 1:38 AM EST) Only the most recent of8 resultswithin the time period is included. ComponentValueRef RangeTest MethodAnalysis TimePerformed AtPathologist Signature Vanprm242(L)136 - 145 mmol/L108/05/2024 2:12 AM [facility] ([facility]) Potassium4.23.5 - 5.1 mmol/L108/05/2024 2:12 AM [facility] ([facility]) Ybywnbul52201 - 107 mmol/L108/05/2024 2:12 AM [facility] ([facility])CO219 (L)21 - 31 mmol/L108/05/2024 2:12 AM [facility] ([facility])Anion Qcm648 - 20 mmol/L108/05/2024 2:12 AM [facility] ([facility])BUN27(H)7 - 25 mg/dL 06/05/2025 2:12 AM [facility] ([facility])Creatinine1.000.70 - 1.30 mg/dL 06/05/2025 2:12 AM [facility] ([facility])BUN/Creatinine Ratio27.0 06/05/2025 2:12 AM [facility] ([facility])Uqaauye124(H)70 - 100 mg/dL 06/05/2025 2:12 AM [facility] ([facility])Calcium8.5(L)8.6 - 10.3 mg/dL 06/05/2025 2:12 AM [facility] ([facility])AST96(H)13 - 39 U/L108/05/2024 2:12 AM [facility] ([facility])ALT (SGPT)487 - 52 U/L108/05/2024 2:12 AM [facility] ([facility])Alkaline Eahmocpeipc5360 - 104 U/L108/05/2024 2:12 AM [facility] ([facility])Total Protein6.96.0 - 8.3 g/dL06/05/2025 2:12 AM [facility] ([facility])Albumin3.2(L)3.5 - 5.7 g/dL06/05/2025 2:12 AM [facility] ([facility])Total Bilirubin0.50.3 - 1.0 mg/dL06/05/2025 2:12 AM [facility] ([facility])eGFR81.5>60.0 mL/min/1.73m* 2:12 AM [facility] ([facility])Comment:[facility]???s estimated glomerular filtration rate (eGFR) will no [...] MURRAY BLOOD ORDERABLESFinal ResultPerforming OrganizationAddressCity/State/ZIP CodePhone Number [facility] ([facility]) [address] [place] [address] * CARDIAC DEVICE CHECK - REMOTE - ICD (05/31/2025 11:17 AM EST) Only the most recent of4 resultswithin the time period is included. ComponentValueRef RangeTest MethodAnalysis TimePerformed AtPathologist Signature BSA1.48w8HQKCXRajfqshk (Source)Anatomical Location / LateralityCollection Method / VolumeCollection TimeReceived Time Narrative Authorizing ProviderResult TypeResult StatusPadevin Segundo [facility] IMPLANTABLE CARDIAC DEVICE PROCEDURESFinal ResultPerforming OrganizationAddressCity/State/ZIP Code Phone Number [facility] * Cardiac device check - Remote ICD (05/18/2025 12:00 AM EDT) Only the most recent of4 resultswithin the time period is included. Anatomical RegionLateralityModalityOtherSpecimen (Source)Anatomical Location / LateralityCollection Method / VolumeCollection TimeReceived Time05/18/2025 Narrative Authorizing ProviderResult TypeResult StatusMitesh Vernon [facility] IMPLANTABLE CARDIAC DEVICE PROCEDURESFinal Result * Phosphorus (05/04/2025 4:18 AM EDT) Only the most recent of30 resultswithin the time period is included. ComponentValueRef RangeTest MethodAnalysis TimePerformed AtPathologist Signature Phosphorus3.12.5 - 5.0 mg/dL05/04/2025 5:12 AM [facility] ([facility]) Specimen (Source)Anatomical Location / LateralityCollection Method / Volume Collection TimeReceived TimeBloodVenous blood specimen / UnknownVenipuncture / Syvgoyw1905/04/2025 4:18 AM EDT1 4:46 AM EDT Narrative Authorizing ProviderResult TypeResult StatusYolupe MURRAY BLOOD ORDERABLESFinal ResultPerforming OrganizationAddressCity/State/ZIP CodePhone Number [facility] ([facility]) [address] [place] [address] * US neck (05/03/2025 3:56 PM EDT)Anatomical [...] Growth Staphylococcus lugdunensis(A) FLORA 05/05/2025 7:07 AM [facility] ([facility])Comment:Gram Stain Result Moderate Polymorphonuclear pzsbdkdcux31/18/2025 7:07 AM [facility] ([facility])Gram Stain ResultNo organisms seen05/05/2025 7:07 AM [facility] ([facility])Specimen (Source)Anatomical Location / LateralityCollection Method / VolumeCollection TimeReceived TimeFluidNeck structure / UnknownNon-blood Collection / Dahlyxv5005/03/2025 12:59 PM EDT1 1:20 PM EDT Narrative [facility] ([facility]) - 05/05/2025 7:07 AM EDT Rare Growth Skin Darlyn OrganismAntibioticMethodSusceptibilityStaphylococcus lugdunensisClindamycinMIC <=0.5 ug/ml: Susceptible Staphylococcus lugdunensisOxacillinMIC <=0.25 ug/ml: Susceptible Staphylococcus lugdunensisTetracyclineMIC <=0.5 ug/ml: Susceptible Staphylococcus lugdunensisVancomycinMIC <=0.5 ug/ml: Susceptible Authorizing ProviderResult TypeResult StatusOmar Samara MURRAY MICROBIOLOGY - GENERAL ORDERABLESFinal ResultPerforming OrganizationAddressCity/State/ZIP Code Phone Number [facility]) [address] [place] [address] * LIMITED ECHOCARDIOGRAM (TTE) W/ LTD DOPPLER AND COLOR FLOW (04/30/2025 8:35 AM EDT)Anatomical RegionLateralityModalityOtherSpecimen (Source)Anatomical Location / LateralityCollection Method / VolumeCollection TimeReceived Time 04/30/2025 7:02 AM EDT Narrative 04/30/2025 11:22 AM EDT 1 1 [facility] Heart Station [address] [place] [address] (fax) Echocardiogram-[facility] Name: KRISTY DOHERTY Study Date: 04/30/2025 07:02 AM B/P: 121 mmHg/100 mmHg HR: 87 bpm Date of : 1955 Location: [facility] Height: 68 in. Age: 69 [...] with the fellow Procedure Staff Reading Group: [facility] Referring Physician: RUDY KING ??Hide Cooking Operator: June Brumfield RDCS, RVT, RN, BSN ??Ordering Physician: Wil Sotomayor MD Wall Motion Scores -1 - hyperkinesia, 0 - not evaluated, 1 - normal, 2 - hypokinesia, 3 - akinesia, 4 - dyskinesia Procedure Note Hay William MD - 04/30/2025 1 1 [facility] [address] [place] [address] [phone] (fax) Echocardiogram-[facility] Name: KRISTY DOHERTY Study Date: 04/30/2025 07:02 AM B/P: 121 mmHg/100 mmHg HR: 87 bpm Date of : 1955 Location: [facility] Height: 68 in. Age: 69 [...] with the fellow Procedure Staff Reading Group: [facility] Referring Physician: RUDY KING Hide Cooking Operator: June Brumfield, DEAN, RVT, RN, BSN Ordering Physician: Wil Sotomayor MD Wall Motion Scores -1 - hyperkinesia, 0 - not evaluated, 1 - normal, 2 - hypokinesia, 3 - akinesia, 4 - dyskinesia Authorizing ProviderResult TypeResult StatusBlair Светлана [facility] ECHO PROCEDURES Final Result * (ABNORMAL) Blood Gas, Venous (04/29/2025 3:38 PM EDT)ComponentValueRef Range Test MethodAnalysis TimePerformed AtPathologist SignaturepH, Ven7.43(H)7.31 - 7.411 3:56 PM [facility] THERAPYpCO2, Ydz6055 - 50 mmHg 04/29/2025 3:56 PM [facility] THERAPYpO2, Iiy9981 - 45 mmHg04/29/2025 3:56 PM [facility] THERAPYO2 Sat, Ven56.1(L)65.0 - 75.0 %04/29/2025 3:56 PM [facility] THERAPYHCO3, Mdnvyg79.9mmol/L1 3:56 PM [facility] RESPIR[facility] THERAPYOxyhemoglobin, Peohem35.6%04/29/2025 3:56 PM EDT [facility] RESPIRATORY THERAPYpH Venous Temp Adjusted7.43(H)7.31 - 7.411 3:56 PM [facility] THERAPYpCO2 Venous Temp Zamwgapj5784 - 50 mmHg 04/29/2025 3:56 PM [facility] THERAPYpO2 Venous Temp Flyjbilh6796 - 45 mmHg04/29/2025 3:56 PM [facility] BHCEELRMvbnnwuiola54.0??C 04/29/2025 3:56 PM [facility] THERAPYSpecimen (Source)Anatomical Location / LateralityCollection Method / VolumeCollection TimeReceived Time BloodVenous blood specimen / UnknownExisting Catheter / Xtwontx1504/29/2025 3:38 PM EDT1 3:51 PM EDT Narrative Authorizing ProviderResult TypeResult StatusAadil Raj MURRAY BLOOD ORDERABLES Final ResultPerforming OrganizationAddressCity/State/ZIP CodePhone Number [facility] THERAP[facility] [address] [place] [address], * XR chest 1 view (04/29/2025 11:20 [...] 8:14 AM EDT)ComponentValueRef RangeTest MethodAnalysis TimePerformed AtPathologist MppqqnondCqpb54(L)50 - 212 ug/dL 04/29/2025 10:43 AM [facility] ([facility])JJJW114(L)250 - 450 ug/dL 04/29/2025 10:43 AM [facility] ([facility])Iron Olrtbcmurh43(L)20 - 50 % 04/29/2025 10:43 AM [facility] ([facility])JRSJ684.0155.0 - 355.0 ug/dL 04/29/2025 10:43 AM [facility] ([facility])Specimen (Source)Anatomical Location / LateralityCollection Method / VolumeCollection TimeReceived Time BloodVenous blood specimen / UnknownExisting Catheter / Wwvyrro7404/29/2025 8:14 AM EDT1 8:19 AM EDT Narrative Authorizing ProviderResult TypeResult StatusAajohann MURRAY BLOOD ORDERABLES Final ResultPerforming OrganizationAddressCity/State/ZIP CodePhone Number [facility] ([facility]) [address] [place] [address] * (ABNORMAL) Ferritin (04/29/2025 8:14 AM EDT)ComponentValueRef RangeTest Method Analysis TimePerformed AtPathologist SignatureFerritin1,265.0(H)24.0 - 336.0 ng/mL04/29/2025 11:02 AM [facility] ([facility])Specimen (Source) Anatomical Location / LateralityCollection Method / VolumeCollection Time Received TimeBloodVenous blood specimen / UnknownExisting Catheter / Unknown 04/29/2025 8:14 AM EDT1 8:19 AM EDT Narrative Authorizing ProviderResult TypeResult StatusAajohann MURRAY BLOOD ORDERABLES Final ResultPerforming OrganizationAddressCity/State/ZIP CodePhone Number [facility] ([facility]) [address] [place] [address] * Ammonia (04/29/2025 2:38 AM EDT)ComponentValueRef RangeTest MethodAnalysis TimePerformed AtPathologist MkjdloqlsGclrvxz6428 - 72 umol/L1 3:06 AM [facility] ([facility])Specimen (Source)Anatomical Location / Laterality Collection Method / VolumeCollection TimeReceived TimeBloodVenous blood specimen / UnknownArterial Line / Otucjuc9004/29/2025 2:38 AM EDT1 2:44 AM EDT Narrative Authorizing ProviderResult TypeResult StatusAadil Raj MURRAY BLOOD ORDERABLES Final ResultPerforming OrganizationAddressCity/State/ZIP CodePhone Number [facility] ([facility]) [address] [place] [address] * (ABNORMAL) Arterial Blood Gases (04/28/2025 8:54 AM EDT)ComponentValueRef RangeTest MethodAnalysis TimePerformed AtPathologist SignaturepH, Arterial7.36 7.35 - 7.451 8:54 AM [facility] THERAPYpCO2, Gsseecft45(L)35 - 45 mmHg04/28/2025 8:54 AM [facility] THERAPYpO2, Xiiwpisi6400 - 108 mmHg04/28/2025 8:54 AM [facility] THERAPYHCO3, Frzxqagf99.9(L)21.0 - 28.0 mmol/L1 8:54 AM [facility] THERAPYO2 Sat, Wvpmxynv11.1 94.0 - 100.0 %04/28/2025 8:54 AM [facility] THERAPYBase Excess, Arterial-7.3(L)-2.0 - 3.0 mmol/L1 8:54 AM [facility] THERAPY Oxyhemoglobin, Xsaafxmq77.294.0 - 97.0 %04/28/2025 8:54 AM [facility] KLHPPCXOohejrjwuur67.0??04/28/2025 8:54 AM [facility] THERAPYOxygen Device #5Fgofajn88/11/2025 8:54 AM [facility] THERAPYLPM4.0LPM 04/28/2025 8:54 AM [facility] THERAPYPF Ratio04/28/2025 8:54 AM EDT [facility] RESPIRATORY THERAPYComment:C^IncalculableA-rUb06404/28/2025 8:54 AM [facility] RESPIRATORY THERAPYComment:C^IncalculablepaO2/bNL10704/28/2025 8:54 AM EDTR[facility] RESPIRATORY THERAPYComment:C^IncalculableSpecimen (Source)Anatomical Location / LateralityCollection Method / VolumeCollection TimeReceived TimeBlood Arterial blood specimen / Mepqwnz0204/28/2025 8:54 AM EDT1 8:54 AM EDT Narrative Authorizing ProviderResult TypeResult StatusAadil Raj MURRAY BLOOD ORDERABLES Final ResultPerforming OrganizationAddressCity/State/ZIP CodePhone Number [facility]PIRAT[facility] THERAP[facility] [address] [place] [address], * XR abdomen 1 view (04/28/2025 12:50 [...] Anthony MDIMG XR PROCEDURES Final Result * (ABNORMAL) Hemoglobin and hematocrit, blood (04/27/2025 7:57 PM EDT)Component ValueRef RangeTest MethodAnalysis TimePerformed AtPathologist Signature Vfyipwopny20.6(L)13.0 - 17.0 g/dL04/27/2025 8:28 PM [facility] ([facility])Ghkbvnzjtu76.2(L)39.0 - 50.0 %04/27/2025 8:28 PM [facility] ([facility])Specimen (Source)Anatomical Location / LateralityCollection Method / VolumeCollection TimeReceived TimeBloodVenous blood specimen / UnknownArterial Line / Xvmqiai7404/27/2025 7:57 PM EDT1 8:10 PM EDT Narrative Authorizing ProviderResult TypeResult StatusAajohann MURRAY BLOOD ORDERABLES Final ResultPerforming OrganizationAddressCity/State/ZIP CodePhone Number [facility] ([facility] [address] [place] [address] * Co-oximetry (04/27/2025 4:25 AM EDT) Only the most recent of2 resultswithin the time period is included. ComponentValueRef RangeTest MethodAnalysis TimePerformed AtPathologist Signature Gizqqabdrsrgq73.0%04/27/2025 4:31 AM EDTROO[facility] RESPIR[facility]ORY THERAPYTotal Hemoglobin 11.5g/dL04/27/2025 4:31 AM EDTUT RESPIRATORY THERAPYO2 Sat36.4%04/27/2025 4:31 AM EDTUT RESPIRATORY THERAPYSpecimen (Source)Anatomical Location / LateralityCollection Method / VolumeCollection TimeReceived TimeBloodMixed venous blood specimen / UnknownArterial Line / Rmimtni7404/27/2025 4:25 AM EDT 04/27/2025 4:25 AM EDT Narrative Authorizing ProviderResult TypeResult StatusAajohann Anthony MDLAB BLOOD ORDERABLES Final ResultPerforming OrganizationAddressCity/State/ZIP CodePhone Number [facility] [address] [place] [address], * Urea nitrogen, urine (04/26/2025 8:40 AM EDT)ComponentValueRef RangeTest MethodAnalysis TimePerformed AtPathologist SignatureUrea Nitrogen, Yt046zj/dL 04/26/2025 9:11 AM [facility] ([facility])Specimen (Source)Anatomical Location / LateralityCollection Method / VolumeCollection TimeReceived Time UrineUrine specimen obtained by clean catch procedure / UnknownNon-blood Collection / Krrogju9904/26/2025 8:40 AM EDT1 8:52 AM EDT Narrative Authorizing ProviderResult TypeResult StatusAajohann Anthony MDLAB URINE ORDERABLES Final ResultPerforming OrganizationAddressCity/State/ZIP CodePhone Number [facility] [address] [place] [address] * Sodium, urine, random (04/26/2025 8:40 AM EDT) Only the most recent of2 resultswithin the time period is included. ComponentValueRef RangeTest MethodAnalysis TimePerformed AtPathologist Signature Sodium, Vl54cnqv/L1 9:11 AM [facility] ([facility])Specimen (Source)Anatomical Location / LateralityCollection Method / VolumeCollection TimeReceived TimeUrineUrine specimen obtained by clean catch procedure / Unknown Non-blood Collection / Dtfkhqo8604/26/2025 8:40 AM EDT1 8:52 AM EDT Narrative Authorizing ProviderResult TypeResult StatusAadienid Anthony MDLAB URINE ORDERABLES Final ResultPerforming OrganizationAddressCity/State/ZIP CodePhone Number [facility] ([facility]) [address] [place] [address] * Creatinine, urine, random (04/26/2025 8:40 AM EDT)ComponentValueRef RangeTest MethodAnalysis TimePerformed AtPathologist SignatureCreatinine, Ur83.026 - 299 mg/dL04/26/2025 9:11 AM [facility] ([facility])Specimen (Source) Anatomical Location / LateralityCollection Method / VolumeCollection Time Received TimeUrineUrine specimen obtained by clean catch procedure / Unknown Non-blood Collection / Cdgrock5804/26/2025 8:40 AM EDT1 8:52 AM EDT Narrative Authorizing ProviderResult TypeResult StatusAadil Raj MURRAY URINE ORDERABLES Final ResultPerforming OrganizationAddressCity/State/ZIP CodePhone Number [facility] ([facility]) [address] [place] [address] * (ABNORMAL) Urinalysis (04/26/2025 8:40 AM EDT)ComponentValueRef RangeTest MethodAnalysis TimePerformed AtPathologist SignatureColor, UrineLight-Yellow Colorless, Yellow, Light-Dawotm8504/26/2025 9:27 AM [facility] ([facility])Clarity, FkkfzClkwnWqhdg69/09/2025 9:27 AM [facility] ([facility])pH, Urine5.05.0 - 8.0 pH04/26/2025 9:27 AM [facility] ([facility])Leukocytes, XwwrpRwvtmojmGgkkqwfg91/09/2025 9:27 AM [facility] ([facility])Nitrite, RjhxoTrdehuscTewpxbns04/09/2025 9:27 AM [facility] ([facility])Protein, UrineNegativeNegative mg/dL04/26/2025 9:27 AM [facility] ([facility])Glucose, Sruqk961(A)Normal mg/dL04/26/2025 9:27 AM EDT [facility] ([facility])Bilirubin, TerimRvldmzaiDeixtlau67/09/2025 9:27 AM [facility] ([facility])Specific Lutcher, Urine1.0131.010 - 1.030 04/26/2025 9:27 AM [facility] ([facility])Ketones, UrineNegativeNegative mg/dL04/26/2025 9:27 AM [facility] ([facility])Blood, UrineNegative Qdsgnhwm75/09/2025 9:27 AM [facility] ([facility])Urobilinogen, Urine NormalNormal mg/dL04/26/2025 9:27 AM [facility] ([facility])Specimen (Source)Anatomical Location / LateralityCollection Method / VolumeCollection TimeReceived TimeUrineUrine specimen obtained by clean catch procedure / UnknownNon-blood Collection / Afvvjvl1504/26/2025 8:40 AM EDT1 8:52 AM EDT Narrative [facility] ([facility]) - 04/26/2025 9:27 AM EDT Microscopics not performed on urines with negative chemical reactions unless requested on original order. Authorizing ProviderResult TypeResult StatusAadil Raj MURRAY URINE ORDERABLES Final ResultPerforming OrganizationAddressCity/State/ZIP CodePhone Number [facility] ([facility]) [address] [place] [address] * RIGHT HEART CATH, SWAN (FLOW DIRECTED [...] Performed: Right heart catheterization. Placement of a HANDBELL CHOIR DIRECTOR Stephens-Stacy catheter for hemodynamic monitoring. Access into the right internal jugular vein under ultrasound guidance. Methods: ??Procedure was explained to the patient with risks and benefits; he signed informed consent. ??he was brought to the cath laboratory technician in a fasting state. The right neck area was prepped and draped in usual fashion. Micropuncture technique was used for access under ultrasound guidance into the right internal jugular vein. ??A 6-Montenegrin x 11 cm sheath was placed. ?? A 6-Montenegrin Carrasquillo catheter was used for right heart catheterization and measurement of pressures and calculation of cardiac output using the estimated [place] method. ??Carrasquillo catheter was removed. Over a wire to the access sheath was upsized to a 9 Montenegrin introducer sheath. ??A HANDBELL CHOIR DIRECTOR Stephens-Stacy catheter was advanced with the aid of a V18 wire and the distal end of the catheter was advanced to the distal segment of the right pulmonary artery. ??The Stephens-Stacy catheter was secured in place. he tolerated [...] with biventricular failure. Successful placement of a HANDBELL CHOIR DIRECTOR Stephens-Stacy catheter to guide management of heart failure. Plan: Patient will be started on intravenous inotropic therapy. Further recommendations per inpatient Cardiology service. Hay William MD Study Details Other hypotension [I95.89], Right ventricular dysfunction [I51.9] Authorizing ProviderResult TypeResult StatusAdam Yoon CNPCV CARDIAC CATH PROCEDURESFinal Result * (ABNORMAL) Lipid panel (04/24/2025 4:07 AM EDT)ComponentValueRef RangeTest MethodAnalysis TimePerformed AtPathologist OeudefnujJdwhdllfgdmmw54<150 mg/dL 04/24/2025 2:39 PM [facility] ([facility])Comment: TRIGLYCERIDE REFERENCE RANGE: 20 YEARS AND OLDER ?CARDIOVASCULAR RISK LESS THAN 150 mg/dL ? LOW RISK 150 TO 199 mg/dL ?BORDERLINE RISK 200 mg/dL AND GREATER ? HIGH RISK Pjeuzpaiduv63(L)120 - 200 mg/dL04/24/2025 2:39 PM [facility] ([facility]) LDL Qtmwwyayyl131 - 160 mg/dL04/24/2025 2:39 PM [facility] ([facility]) MKJ5478 - 92 mg/dL04/24/2025 2:39 PM [facility] ([facility])Non HDL Ejovsqqxokh3644/07/2025 2:39 PM [facility] ([facility])Total VLDL-C150 - 40 mg/dL04/24/2025 2:39 PM [facility] ([facility])Cholesterol/HDL Ratio3.4 mg/dL04/24/2025 2:39 PM [facility] ([facility])Specimen (Source)Anatomical Location / LateralityCollection Method / VolumeCollection TimeReceived Time BloodVenous blood specimen / UnknownVenipuncture / Wacreph6004/24/2025 4:07 AM EDT 04/24/2025 4:17 AM EDT Narrative Authorizing ProviderResult TypeResult StatusRacary Dominguez MDLAB BLOOD ORDERABLES Final ResultPerforming OrganizationAddressCity/State/ZIP CodePhone Number [facility] ([facility]) [address] [place] [address] * CTA Chest W IV Contrast (04/23/2025 [...] Narrative 04/23/2025 9:27 AM EDT 1 1 [facility] Heart Station [address] [place] [address] [phone] (fax) Echocardiogram-[facility] Name: KRISTY DOHERTY Study Date: 04/23/2025 07:26 AM B/P: 90 mmHg/74 mmHg HR: 111 bpm Date of : 1955 Location: [facility] Height: 68 in. Age: 69 [...] minimal pericardial effusion. Procedure Staff Reading Group: [facility] Referring Physician: RUDY KING ??Hide Cooking Operator: June Brumfield, DEAN, RVT, RN, BSN ??Ordering Physician: FANI DENNEY ?? Wall Motion Scores -1 - hyperkinesia, 0 - not evaluated, 1 - normal, 2 - hypokinesia, 3 - akinesia, 4 - dyskinesia Procedure Note Mitesh Vernon MD - 04/23/2025 1 1 [facility] Heart Station [address] [facility] [place] [place] [address] [phone] (fax) Echocardiogram-[facility] Name: KRISTY DOHERTY Study Date: 04/23/2025 07:26 AM B/P: 90 mmHg/74 mmHg HR: 111 bpm Date of : 1955 Location: [facility] Height: 68 in. Age: 69 [...] minimal pericardial effusion. Procedure Staff Reading Group: [facility] Referring Physician: RUDY KING Hide Cooking Operator: June Brumfield RDCS, RVT, RN, BSN Ordering Physician: FANI DENNEY Wall Motion Scores -1 - hyperkinesia, 0 - not evaluated, 1 - normal, 2 - hypokinesia, 3 - akinesia, 4 - dyskinesia Authorizing ProviderResult TypeResult Statusceleste Connelloury MDCV ECHO PROCEDURES Final Result * (ABNORMAL) C-reactive protein (04/23/2025 5:02 AM EDT) Only the most recent of2 resultswithin the time period is included. ComponentValueRef RangeTest MethodAnalysis TimePerformed AtPathologist Signature CRP39.4(H)<=5.0 mg/L1 8:57 AM [facility] ([facility])Comment: Testing performed using a new methodology, turbidimetry. Normal ranges have been updated. Old normal range was <8 mg/L.Specimen (Source)Anatomical Location / LateralityCollection Method / VolumeCollection TimeReceived TimeBloodVenous blood specimen / UnknownVenipuncture / Rqajngg8904/23/2025 5:02 AM EDT1 5:22 AM EDT Narrative Authorizing ProviderResult TypeResult StatusYanely Archer CNPLAB BLOOD ORDERABLESFinal ResultPerforming OrganizationAddressCity/State/ZIP CodePhone Number [facility] ([facility]) [address] [place] [address] * CT cervical spine wo IV contrast [...] Corbin MD. Authorizing ProviderResult TypeResult StatusIdrees Adam KLEINIMPurvi CT PROCEDURES Final Result * ECG 12 lead (04/23/2025 3:34 AM EDT) Only the most recent of3 resultswithin the time period is included. ComponentValueRef RangeTest MethodAnalysis TimePerformed AtPathologist Signature Ventricular Upit607JRASJ MUSEAtrial Aolc538SPKVA MUSEPR Dzmyljtw297vbOD MUSEQRS QTNCYSPM563gaLT MUSEQT Jbpeeizr356ttAA MUSEQTC CALCULATION(BAZETT)415msGE MUSEP Revd67wqwoufhTV MUSER-Jzsh70anstdflUY MUSET Wave Sxyk514lkraywxFE MUSESpecimen (Source)Anatomical Location / LateralityCollection Method / [...] on 04/23/2025 8:14:48 AM Authorizing ProviderResult TypeResult StatusOsito Kline MDECPurvi ORDERABLESFinal ResultPerforming OrganizationAddressCity/State/ZIP CodePhone Number [facility]USE * LIMITED ECHOCARDIOGRAM (TTE) W/ LTD DOPPLER AND COLOR FLOW (04/20/2025 1:51 PM EDT)Anatomical RegionLateralityModalityOtherSpecimen (Source)Anatomical Location / LateralityCollection Method / VolumeCollection TimeReceived Time 04/20/2025 1:28 PM EDT Narrative 04/20/2025 5:38 PM EDT 1 1 [facility] Heart Station [address] [place] [address] [phone] (fax) Echocardiogram-[facility] Name: KRISTY DOHERTY Study Date: 04/20/2025 01:28 PM B/P: 83 mmHg/58 mmHg HR: 96 bpm Date of : 1955 Location: [facility] Height: 68 in. Age: 69 [...] No pericardial effusion. Procedure Staff Reading Group: [facility] Referring Physician: RUDY KING ??Hide Cooking Operator: June Brumfield, RDCS, RVT, RN, BSN ??Ordering Physician: VENU SAMANIEGO Wall Motion Scores -1 - hyperkinesia, 0 - not evaluated, 1 - normal, 2 - hypokinesia, 3 - akinesia, 4 - dyskinesia Procedure Note Mitesh Vernon MD - 04/20/2025 1 1 [facility] Heart Station [address] [place] [address] [phone] (fax) Echocardiogram-[facility] Name: KRISTY DOHERTY Study Date: 04/20/2025 01:28 PM B/P: 83 mmHg/58 mmHg HR: 96 bpm Date of : 1955 Location: [facility] Height: 68 in. Age: 69 [...] No pericardial effusion. Procedure Staff Reading Group: [facility] Referring Physician: RUDY KING Hide Cooking Operator: June Brumfield RDCS, RVT, RN, BSN Ordering Physician: VENU SAMANIEGO Wall Motion Scores -1 - hyperkinesia, 0 - not evaluated, 1 - normal, 2 - hypokinesia, 3 - akinesia, 4 - dyskinesia Authorizing ProviderResult TypeResult StatusChrisfrancesco Samaniego [facility] [place] ECHO PROCEDURESFinal Result * Osmolality (04/20/2025 12:25 PM EDT) Only the most recent of2 resultswithin the time period is included. ComponentValueRef RangeTest MethodAnalysis TimePerformed AtPathologist Signature Fdikkttebr709187 - 295 mOsm/kg04/20/2025 7:48 PM [facility] LAB[facility]:Test Performed by [employer] [address] [place] [id number] - Oyoyouzr 04/20/2025 19:48Specimen (Source)Anatomical Location / Laterality Collection Method / VolumeCollection TimeReceived TimeBloodVenous blood specimen / UnknownVenipuncture / Gtzhrtk6504/20/2025 12:25 PM EDT1 12:56 PM EDT Narrative Authorizing ProviderResult TypeResult StatusBenedict MURRAY BLOOD ORDERABLES Final ResultPerforming OrganizationAddressCity/State/ZIP CodePhone Number [facility] [address] [place] [address] * Cortisol (04/20/2025 5:15 AM EDT)ComponentValueRef RangeTest MethodAnalysis TimePerformed AtPathologist EwtulxageSkylszrc02.26 - 23 ug/dL04/20/2025 12:47 PM [facility] ([facility])Specimen (Source)Anatomical Location / LateralityCollection Method / VolumeCollection TimeReceived TimeBloodVenous blood specimen / UnknownVenipuncture / Orksatr7004/20/2025 5:15 AM EDT1 5:22 AM EDT Narrative Authorizing ProviderResult TypeResult StatusOmareddy MURRAY BLOOD ORDERABLES Final ResultPerforming OrganizationAddressCity/State/ZIP CodePhone Number [facility] ([facility]) [address] [place] [address] * (ABNORMAL) B-type natriuretic peptide (04/19/2025 6:25 PM EDT)ComponentValue Ref RangeTest MethodAnalysis TimePerformed AtPathologist HbsoydywgPHS812(H)0 - 100 pg/mL04/19/2025 7:07 PM [facility] ([facility])Specimen (Source) Anatomical Location / LateralityCollection Method / VolumeCollection Time Received TimeBloodVenous blood specimen / UnknownVenipuncture / Unknown 04/19/2025 6:25 PM EDT1 6:36 PM EDT Narrative Authorizing ProviderResult TypeResult StatusChstalin MURRAY BLOOD ORDERABLESFinal ResultPerforming OrganizationAddressCity/State/ZIP CodePhone Number [facility] ([facility]) [address] [place] [address] * LIMITED ECHO (TTE) (04/19/2025 3:37 PM EDT)Anatomical RegionLateralityModality OtherSpecimen (Source)Anatomical Location / LateralityCollection Method / VolumeCollection TimeReceived Time04/19/2025 2:13 PM EDT Narrative 04/19/2025 4:30 PM EDT 1 1 [facility] Heart Station [address] [facility] [place] [address] (fax) Echocardiogram-[facility] Name: KRISTY DOHERTY Study Date: 04/19/2025 02:13 PM B/P: / HR: Date of : 1955 Location: [facility] Height: 68 in. Age: 69 year(s) Patient Room: 3183 Weight: 182 lb. Gender: Male Patient Status: InPt BSA: 1.96 m2 Indication: pericardialeffusion, h/o 35mm Watchman FLX Examination: Limited Echo Image Quality: Fair Findings Pericardium: Moderate pericardial effusion baseline. Post pericardiocentesis there is minimal pericardial effusion. Procedure Staff Reading Group: [facility] Referring Physician: RUDY KING ??Hide Cooking Operator: SAMI Starr, RDROSALIO ??Ordering Physician: VENU SAMANEIGO Procedure Note Fani Denney MD - 04/19/2025 1 1 [facility] Heart Station [address] [facility] [place] [address] [phone] (fax) Echocardiogram-[facility] Name: KRISTY DOHERTY Study Date: 04/19/2025 02:13 PM B/P: / HR: Date of : 1955 Location: [facility] Height: 68 in. Age: 69 year(s) Patient Room: 3183 Weight: 182 lb. Gender: Male Patient Status: InPt BSA: 1.96 m2 Indication: pericardialeffusion, h/o 35mm Watchman FLX Examination: Limited Echo Image Quality: Fair Findings Pericardium: Moderate pericardial effusion baseline. Post pericardiocentesis there is minimal pericardial effusion. Procedure Staff Reading Group: [facility] Referring Physician: RUDY KING Hide Cooking Operator: SAMI Starr, RDCS Ordering Physician: VENU SAMANIEGO Authorizing ProviderResult TypeResult StatusChristopher Laurent MDCV ECHO PROCEDURESFinal Result * Pathology Review (04/19/2025 3:23 PM EDT)ComponentValueRef RangeTest Method Analysis TimePerformed AtPathologist SignaturePathology ReviewReviewed. . 04/20/2025 9:17 AM [facility] ([facility])Specimen (Source)Anatomical Location / LateralityCollection Method / VolumeCollection TimeReceived TimeFluid (Pericardial Fluid)Non-blood Collection / Vgicsgu9104/19/2025 3:23 PM EDT 04/19/2025 3:33 PM EDT Narrative Authorizing ProviderResult TypeResult StatusChrisfrancesco Samaniego OHLAB BLOOD ORDERABLESFinal ResultPerforming OrganizationAddressCity/State/ZIP CodePhone Number [facility] ([facility]) [address] [place] [address] * Body fluid cell differential (04/19/2025 3:23 PM EDT)ComponentValueRef Range Test MethodAnalysis TimePerformed AtPathologist SignatureTotal Cells Counted for Ytgwmxjkxfwd82779/03/2025 9:17 AM [facility] ([facility])Neutrophils Manual, Dsxyi890904/20/2025 9:17 AM [facility] ([facility])Lymphocytes Manual, Tzxga276 9:17 AM [facility] ([facility])Ziebach/Macrophage Manual, Fluid04/20/2025 9:17 AM [facility] ([facility])Eosinophils Manual, Fluid04/20/2025 9:17 AM [facility] ([facility])Basophils Manual, Fluid04/20/2025 9:17 AM [facility] ([facility])Mesothelial Manual, Wypgn430 9:17 AM [facility] ([facility])Other Cells, BF Manual 04/20/2025 9:17 AM [facility] ([facility])Specimen (Source)Anatomical Location / LateralityCollection Method / VolumeCollection TimeReceived Time Fluid (Pericardial Fluid)Non-blood Collection / Wehssbh0604/19/2025 3:23 PM EDT 04/19/2025 3:33 PM EDT Narrative [facility] ([facility]) - 04/20/2025 9:17 AM EDT Differential performed on cytospin Authorizing ProviderResult TypeResult StatusVenu MURRAY BODY FLUIDS AND STOOLS ORDERABLESFinal ResultPerforming OrganizationAddressCity/State/ZIP CodePhone Number [facility] ([facility]) [address] [place] [address] * (ABNORMAL) Body fluid cell count with differential (04/19/2025 3:23 PM EDT) ComponentValueRef RangeTest MethodAnalysis TimePerformed AtPathologist SignatureFluid Type Cell CountPericardial Fluid04/20/2025 9:17 AM [facility] ([facility])Fluid Yzzqsb352sV02/03/2025 9:17 AM [facility] ([facility])RBC, Odaeu326,940(H)0 - 1,000 RBC/uL04/20/2025 9:17 AM [facility] ([facility])Total Number of Nucleated Cells14,314TNC/uL04/20/2025 9:17 AM [facility] ([facility])Specimen (Source)Anatomical Location / LateralityCollection Method / VolumeCollection TimeReceived TimeFluid (Pericardial Fluid)Non-blood Collection / Nxerwfe2404/19/2025 3:23 PM EDT 04/19/2025 3:33 PM EDT Narrative [facility] ([facility]) - 04/20/2025 9:17 AM EDT [...] AND STOOLS ORDERABLESFinal ResultPerforming OrganizationAddressCity/State/ZIP CodePhone Number [facility] ([facility]) [address] [place] [address] * Anaerobic culture (04/19/2025 3:23 PM EDT)ComponentValueRef RangeTest Method Analysis TimePerformed AtPathologist SignatureAnaerobic CultureNo anaerobes isolated at day 5 FLORA 04/25/2025 10:12 AM EDTUN[facility] ([facility])Specimen (Source)Anatomical Location / LateralityCollection Method / VolumeCollection TimeReceived Time 04/19/2025 3:23 PM EDT1 3:33 PM EDT Narrative Authorizing ProviderResult TypeResult StatusChristopher Laurent MURRAY MICROBIOLOGY - GENERAL ORDERABLESFinal ResultPerforming OrganizationAddress City/State/ZIP CodePhone Number [facility] ([facility]) [address] [place] [address] * Non-winding department supervisor cytology - cellular exam (04/19/2025 3:23 PM EDT)ComponentValueRef RangeTest MethodAnalysis TimePerformed AtPathologist SignatureCase ReportNon- gynecologic Cytology ?Case: [id number] ? Authorizing Provider: ??Venu Samaniego MD ? Collected: ? 04/19/2025 1523 ? Ordering Location: ? [facility] ?Received: ?04/19/2025 1533 ? Pathologist: ? Halima Marr MD ? Specimen: ?Pericardial Fluid ? 04/24/2025 5:46 PM [facility] ([facility])Final DiagnosisA. Pericardial fluid: - Negative for malignancy. - Marked acute inflammation.04/24/2025 5:46 PM [facility] ([facility]) at 1746 EDTMicroscopic DescriptionSatisfactory for evaluation. Examination of the ThinPrep slide and cell block reveals rare benign mesothelial cells and abundant acute inflammation.04/24/2025 5:46 PM [facility] ([facility])Clinical InformationPericardial ovhoewis11/07/2025 5:46 PM [facility] ([facility]) Gross Mrkwjvugtjc969 mL opaque, red fluid04/24/2025 5:46 PM [facility] ([facility])Specimen (Source)Anatomical Location / LateralityCollection Method / VolumeCollection TimeReceived TimePericardial Fluid04/19/2025 3:23 PM EDT 04/19/2025 3:33 PM EDT Narrative Authorizing ProviderResult TypeResult StatusChristopher Laurent MURRAY CYTOLOGY ORDERABLESFinal ResultPerforming OrganizationAddressCity/State/ZIP CodePhone Number [facility] ([facility]) [address] [place] [address] * LEFT HEART CATH, RIGHT HEART CATH, [...] and a micropuncture access technique a 6 Montenegrin sheath was placed in the right femoral vein a 4 Fr sheath was placed in the RFA. ??The [employer] catheter was advanced under fluoroscopic and hemodynamic [...] Pericardial effusion [I31.39] Authorizing ProviderResult TypeResult StatusChristopher [facility] CARDIAC CATH PROCEDURESFinal Result * (ABNORMAL) POC Hb02% (04/19/2025 2:47 PM EDT) Only the most recent of2 resultswithin the time period is included. ComponentValueRef RangeTest MethodAnalysis TimePerformed AtPathologist Signature MWBATW34%67.2(A)90 - 95 %QC Pass/FailPassedQC LOT #[id number] Expiration [...] SignatureExtra TubeHold for add-ons. 04/19/2025 4:01 PM EDTUNM [facility] ([facility])Comment:Auto resulted.Specimen (Source)Anatomical Location / LateralityCollection Method / VolumeCollection TimeReceived TimeBloodVenous blood specimen / UnknownVenipuncture / Unknown 04/19/2025 2:44 PM EDT1 2:55 PM EDT Narrative Authorizing ProviderResult TypeResult Ta Pascual MDLAB BLOOD ORDERABLES Final ResultPerforming OrganizationAddressCity/State/ZIP CodePhone Number [facility] ([facility]) [address] [place] [address] * COLLIN (04/19/2025 2:44 PM EDT)ComponentValueRef RangeTest MethodAnalysis Time Performed AtPathologist SignatureANA Titer<1:40<=1:4010 1:12 PM EDT [facility] ([facility])Comment:Test performed using DAVID IFA COLLIN Hep-2 Test, a pre-standardized assay designed for the qualitativeand semi- quantitative detection of antinuclear antibodies.Specimen (Source)Anatomical Location / LateralityCollection Method / VolumeCollection TimeReceived Time BloodVenous blood specimen / UnknownVenipuncture / Lozmoql3104/19/2025 2:44 PM EDT1 2:54 PM EDT Narrative Authorizing ProviderResult TypeResult StatusChristopher Laurent MURRAY BLOOD ORDERABLESFinal ResultPerforming OrganizationAddressCity/State/ZIP CodePhone Number [facility]) [place] [address] * Lavender Top (04/19/2025 2:32 PM EDT)ComponentValueRef RangeTest Method Analysis TimePerformed AtPathologist SignatureExtra TubeHold for add-ons. 04/19/2025 4:01 PM [facility]TMOUNT[facility] ([facility])Comment:Auto resulted.Specimen (Source)Anatomical Location / LateralityCollection Method / VolumeCollection TimeReceived TimeBloodVenous blood specimen / UnknownVenipuncture / Unknown 04/19/2025 2:32 PM EDT1 2:55 PM EDT Narrative Authorizing ProviderResult TypeResult StatusOmar Samara MURRAY BLOOD ORDERABLES Final ResultPerforming OrganizationAddressCity/State/ZIP CodePhone Number [facility]) [place] [address] * COMPLETE ECHO (TTE) (04/19/2025 1:13 PM EDT)Anatomical RegionLaterality ModalityOtherSpecimen (Source)Anatomical Location / LateralityCollection Method / VolumeCollection TimeReceived Time04/19/2025 12:46 PM EDT Narrative 04/19/2025 1:44 PM EDT 1 1 [facility] Heart [facility] [address] [place] [address] [phone] (fax) Echocardiogram-[facility] Name: KRISTY DOHERTY Study Date: 04/19/2025 12:46 PM B/P: 97 mmHg/71 mmHg HR: Date of : 1955 Location: [facility] Height: 68 in. Age: 69 [...] early tamponade physiology. Procedure Staff Reading Group: [facility] Hide Cooking Operator: Bryanna Cazares RDCS ??Ordering Physician: HAKAN NICOLAS ?? Procedure Note Mitesh Vernon MD - 04/19/2025 1 1 [facility] Heart Station [address] [place] [address] [phone] (fax) Echocardiogram-[facility] Name: KRISTY DOHERTY Study Date: 04/19/2025 12:46 PM B/P: 97 mmHg/71 mmHg HR: Date of : 1955 Location: [facility] Height: 68 in. Age: 69 [...] early tamponade physiology. Procedure Staff Reading Group: [facility] [employer] Cook[employer] Operator: Bryanna Cazares RDCS Ordering Physician: HAKAN NICOLAS Authorizing ProviderResult TypeResult StatusKyannette Nicolas PA-CCV ECHO PROCEDURES Final Result * High Sensitivity Troponin I (04/19/2025 12:14 PM EDT)ComponentValueRef Range Test MethodAnalysis TimePerformed AtPathologist SignatureHigh Sensitivity Troponin I7<20 ng/L1 2:02 PM [facility] ([facility])Specimen (Source)Anatomical Location / LateralityCollection Method / VolumeCollection TimeReceived TimeBloodVenous blood specimen / UnknownVenipuncture / Unknown 04/19/2025 12:14 PM EDT1 12:35 PM EDT Narrative Authorizing ProviderResult TypeResult StatusMitesh Vernon [facility] BLOOD ORDERABLESFinal ResultPerforming OrganizationAddressCity/State/ZIP CodePhone Number [facility] ([facility]) [address] [place] [address] * Sedimentation rate (04/19/2025 12:14 PM EDT)ComponentValueRef RangeTest Method Analysis TimePerformed AtPathologist SignatureSed Rate18<20 mm/hr04/19/2025 3:37 PM [facility] ([facility])Specimen (Source)Anatomical Location / LateralityCollection Method / VolumeCollection TimeReceived TimeBloodVenous blood specimen / UnknownVenipuncture / Qxbqnqv9104/19/2025 12:14 PM EDT 04/19/2025 12:35 PM EDT Narrative Authorizing ProviderResult TypeResult StatusChrisfrancesco Samaniego [facility] BLOOD ORDERABLESFinal ResultPerforming OrganizationAddressCity/State/ZIP CodePhone Number [facility] ([facility]) [address] [place] [address] * Creatinine, Serum (03/26/2025 2:43 PM EDT)ComponentValueRef RangeTest Method Analysis TimePerformed AtPathologist SignatureCreatinine0.950.70 - 1.30 mg/dL 03/26/2025 4:16 PM [facility] ([facility])eGFR86.6>60.0 mL/min/1.73m*2 03/26/2025 4:16 PM [facility] ([facility])Comment:[facility]???s estimated glomerular filtration rate (eGFR) will no [...] TimeBloodVenous blood specimen / Unknown Venipuncture / Inymupn6303/26/2025 2:43 PM EDT03/26/2025 3:44 PM EDT Narrative Authorizing ProviderResult TypeResult StatusMeltomas Gutierrez CNPWAMEGO [facility] BLOOD ORDERABLESFinal ResultPerforming OrganizationAddressCity/State/ZIP CodePhone Number [facility] ([place]) [address] [place] [address] from Last 3 Months Insurance * Guarantor: Kristy DohertyAccount TypeRelation to PatientDate of BirthPhone Billing AddressPersonal/HfkmizEqao48/04/1956 [facility] [address] [phone] Advance Directives * Full Code (Latest Code Status on File) Date ActivatedDate BjvlmjbqxdiIgelpmds82/18/2025 1:12 AM * Full Code Date ActivatedDate IfnpdaartfgDoxwyjhu19/2/2025 11:51 AM05/04/2025 6:33 PM * Full Code Date ActivatedDate InactivatedComments02/06/2025 1:12 PM02/07/2025 5:23 PM * Full Code Date ActivatedDate OrypcceiwvpItxksjgv05/15/2022 11:10 PM07/04/2022 3:19 PM Care Teams Team MemberRelationshipSpecialtyStart DateEnd Date Rudy King MD [address] [place] [address] [facility] - Yinnovw07/03/22
--- OUTSIDE RECORDS SUMMARY | 2025-06-06 12:45 | XMS_ITS | CCD ---
Author Organization [facility] Care Team Providers Care Tunnel Kiln Firer Name Role Phone JUDY, DR ESCALANTE Attending [...] DR RUDY Simpson Primary Care Unavailable AICHHOLZ, SALES AND MARKETING AGENT APOORVA Admitting Unavailable AICHHOLZ, SALES AND MARKETING AGENT APOORVA Consulting Unavailable AICHHOLZ, SALES AND MARKETING AGENT APOORVA Attending Unavailable NADERER, DR RUDY Simpson Primary Care Unavailable BONNIE RODRIGUES Consulting Unavailable NADERER, DR RUDY Simpson Primary Care Unavailable BARAZI, MILDRED Admitting Unavailable MILDRED LOGAN Consulting Unavailable MILDRED LOGAN Attending Unavailable FERNANDO, DR RUDY Simpson Primary Care Unavailable SKELLYTOWN, DR ASIF Davila Consulting Unavailable SHAIKH MEDRANO H Attending Unavailable FAURSULA, H Admitting Unavailable FAURSULA, H Consulting Unavailable Kristy Beatty Attending Unavailable Kristy Beatty Admitting Unavailable Rudy King MD Primary Care Provider [phone] RUDY KING Attending Unavailable MARIAH LANGE Attending Unavailable Froy Avila MD Attending Provider Provider, Outside Attending Provider Unavailable Rudy King MD Primary Care Provider [phone] Riky BROWN-CElliott Attending Provider [phone] Rudy King MD Attending Provider [phone] Rudy King MD Primary Care Provider Rudy King MD Primary Care Provider Froy Avila MD Attending Provider [phone] Provider, Outside Attending Provider Unavailable Rudy King MD Primary Care Provider [phone] Elliott Manuel Attending Provider [phone] Rudy King MD Attending Provider [phone] Celina Garner MD Attending Provider [phone] RISA CASTILLO Referring Unavailable MARIA ISABEL, [...] Translations: [OCTACOSANOL]Propensity to adverse reactions to drug (disorder)16-27-1997LdyjtbymqgAv[facility] Medications Current Medications MedicationDrug Class(es)DatesSig (Normalized)Sig (Original)acetaminophen 500 mg oral tablet (2 sources)Start: 36-41-7645yock 1 tablet by mouth every six hours as needed Acetaminophen (Tylenol Extra Strength) 500 mg tablet Active 500 MG PO Every 6 hours as needed May 15, 2025 11:00pm Complies with drug [id number] 200 actuat albuterol 0.09 mg/actuat metered dose inhaler (13 sources)beta2-Adrenergic AgonistStart: 15-05-0351sscl 1 puff(s) by inhalation every four hours as neededAlbuterol Sulfate 90 mcg/actuation HFA aerosol inhaler Active 2 PUFF INHALATION Every 4 hours as needed April 19, 2025 11:00pm Complies with drug therapyStart: 91-49-1211Gnipqdxjy Sulfate 90 mcg/actuation HFA aerosol inhaler Active 2 PUFF INHALATION Six times daily as n eeded for shortness of breath or wheezing 8.5 3 April 16, 2025 11:00pm Complies with drug therapyStart: 19-77-9943rbbu 2 puff(s) by inhalation every four hours for wheezingalbuterol HFA 90 mcg/act inhaler Indications: Mild persistent asthma without complication (HCC) Inhale 2 puffs every 4 (four) hours if needed for wheezing 8.5 g 1 01/16/2025 ActiveStart: 35-01-7341qvyj 2 puff(s) by mouth every four hours as needed for wheezingalbuterol HFA 90 mcg/act inhaler Indications: Mild persistent asthma without complication (CMS/HCC)INHALE 2 (TWO) PUFFS BY MOUTH EVERY FOUR HOURS NEEDED FOR FOR WHEEZING 8.5 g 1 11/14/2024 ActiveStart: 43-84-9586ylks 2 puff(s) by mouth every four hours as needed for wheezingalbuterol HFA 90 mcg/act inhaler Indications: Mild persistent asthma without complication (CMS/HCC)INHALE 2 PUFFS BY MOUTH EVERY 4 HOURS NEEDED FOR WHEEZING 8.5 g 1 06/19/2024 Activeallopurinol 300 mg oral tablet (11 sources)Xanthine Oxidase InhibitorStart: 72-36-5764arme 1 tablet by mouth once dailyAllopurinol 300 mg tablet Active 300 MG PO Daily April 19, 2025 11:00pm Complies with drug therapyStart: 66-13-6426dfcf 1 tablet by mouth once dailyallopurinol (Zyloprim) 300 MG tablet Indications: Gout, unspecified cause, unspecified chronicity, unspecified site TAKE 1 TABLET BY MOUTH DAILY 270 tablet 11/29/2024 ActiveStart: 11-01-2023 End: 59-08-3256vbum 1 tablet by mouth once dailyallopurinol (Zyloprim) 300 MG tablet Indications: Gastroesophageal reflux disease without esophagitis Take 1 tablet (300 mg) by mouth 1 (one) time each day at the same time 30 tablet 11 11/01/2023 10/31/2024 Activeaspirin 81 mg oral tablet (2 sources)Platelet Aggregation Inhibitor, Nonsteroidal Anti-inflammatory Drug Start: 70-47-4356kvho 1 tablet by mouth once dailyAspirin 81 mg tablet Active 81 MG PO Daily May 15, 2025 11:00pm Complies with drug therapyatorvastatin 40 mg oral tablet (12 sources)HMG-CoA Reductase InhibitorStart: 66-86-7230jbwp 1 tablet by mouth once dailyAtorvastatin 40 mg tablet Active 40 MG PO Daily April 19, 2025 11:00pm Complies with drug therapyclopidogrel 75 mg oral tablet (2 sources)P2Y12 Platelet InhibitorStart: 56-34-8732feef 1 tablet by mouth once dailyClopidogrel 75 mg tablet Active 75 MG PO Daily May 15, 2025 11:00pm Complies with drug therapycolchicine 0.6 mg oral tablet (2 sources)Start: 42-76-0046uvae 1 mg by mouth once dailyColchicine 0.6 mg tablet Active MG PO Daily May 15, 2025 11:00pm Complies with drug therapy dapagliflozin 10 mg oral tablet (12 sources)Sodium-Glucose Cotransporter 2 InhibitorStart: 35-72-5375uxml 1 tablet by mouth once dailyDapagliflozin Propanediol (Farxiga) 10 mg tablet Active 10 MG PO Daily April 19, 2025 11:00pm Complies with drug therapy2 ml dupilumab 150 mg/ml auto-injector (12 sources)Interleukin-4 Receptor alpha AntagonistStart: 21-15-9896zaqnbp 300 mg by subcutaneous injection every other weekDupilumab (Dupixent Pen) 300 mg/2 mL pen injector Active 300 MG SUBCUT EVERY 2 WEEKS April 19, 2025 11:00pm Complies with drug therapyStart: 53-78-5129Lxxjyzjm 300 MG/2ML injection Inject 300 mg under the skin every 14 (fourteen) days 10/08/2022 Activefluticasone propionate 0.05 mg/actuat metered dose nasal spray (14 sources)CorticosteroidStart: 68-12-6555Jbfsrwarkvd Propionate 50 mcg/actuation spray,suspension Active 1 SPRAY INTRANASAL Twice daily May 23, 2025 1:10pm Complies with drug therapyStart: 05-16-2025 End: 28-58-5395Swhqgzmvsrt Propionate 50 mcg/actuation spray,suspension Discontinued INTRANASAL May 151:00pm May 23, 2025 1:12pm Start: 04-20-2025 End: 65-41-3419ogvp 1 spray(s) nasal route once dailyFluticasone Furoate 27.5 mcg/actuation spray,suspension Discontinued 1 SPRAY INTRANASAL Daily April 19, 2025 11:00pm May 16, 2025 8:38am into each nostrilStart: 01-02-2025 take 1 spray(s) nasal route once dailyfluticasone (Flonase) 50 MCG/ACT nasal spray Indications: Mild persistent asthma without complication (HCC) instill 1 spray IN EACH NOSTRIL DAILY 16 g 1 01/02/2025 ActiveStart: 49-39-5178riay 1 spray(s) nasal route once dailyfluticasone (Flonase) 50 MCG/ACT nasal spray Indications: Mild persistent asthma without complication (CMS/HCC) instill 1 spray IN EACH NOSTRIL DAILY. shake gently, before first use, prime pump and af ter use clean tip and replace cap 16 g 1 09/04/2024 ActiveStart: 38-77-9056vzao 1 spray(s) nasal route once dailyfluticasone (Flonase) 50 MCG/ACT nasal spray Indications: Mild persistent asthma without complication (CMS/HCC) instill 1 spray IN EACH NOSTRIL DAILY. shake gently, before first use, prime pump and af ter use clean tip and replace cap 16 g 1 06/26/2024 ActiveFluticasone Propion-Salmeterol (13 sources)Corticosteroid, beta2-Adrenergic AgonistStart: 09-94-0229Earpjxbhvvw Propion-Salmeterol (Advair Diskus) 500-50 mcg/dose blister with device Active 1 INH INHALATION Twice daily May 15, 2025 11:00pm Complies with drug therapyStart: 53-66-0924Dlhgmewzqic Propion-Salmeterol (Advair Diskus) 500-50 mcg/dose blister with device Active 1 INH INHALATION Twice daily May 16, 2025 12:00am Complies with drug therapyStart: 04-20-2025 End: 21-38-6783Ujkpflmfkze Propion-Salmeterol 500-50 mcg/dose blister with device Discontinued 1 INH INHALATION Twice daily April 19, 2025 11:00pm May 16, 2025 8:38amStart: 04-20-2025 End: 92-43-8547Eqbxianoqog Propion-Salmeterol 500-50 mcg/dose blister with device Discontinued 1 INH INHALATION Twice daily April 20, 2025 12:00am May 16, 2025 9:38amStart: 06-12-2024 End: 04-06-8365uzud 1 puff(s) by inhalation in the morningFluticasone-Salmeterol 500-50 MCG/ACT aerosol powder Indications: Mild persistent asthma without com plication (HCC) Inhale 1 puff in the morning and 1 puff before bedtime. 60 each 3 10/17/2024 10/17/2025 Activefurosemide 20 mg oral tablet (3 sources)Loop DiureticStart: 18-24-3255qzho 2 tablets by mouth once daily Furosemide 20 mg tablet Active 40 MG PO Daily May 23, 2025 1:10pm Complies with drug therapyStart: 05-16-2025 End: 74-59-0378brsq 1 tablet by mouth once dailyFurosemide 20 mg tablet Discontinued 20 MG PO Daily May 15, 2025 11:00pm May 23, 2025 1:12pm 24 hr metoprolol succinate 25 mg extended release oral tablet (13 sources)beta-Adrenergic BlockerStart: 61-58-8406ryzp 2 tablets by mouth once dailyMetoprolol Succinate 25 mg tablet extended release 24 hr Active 12.5 MG PO daily May 232:00am Complies with drug therapyStart: 06-29-2023 End: 13-92-6043idxt 1 tablet by mouth once dailyMetoprolol Succinate 50 mg tablet extended release 24 hr Discontinued 50 MG PO Daily April 19, 2025 11:00pm May 23, 2025 1:12pmStart: 48-69-9674kgfd 1 tablet by mouth every twenty-four hours in the morningmetoprolol succinate XL (Toprol-XL) 50 MG 24 hr tablet Take 50 mg by mouth in the morning. 06/29/2023 Activespironolactone 25 mg oral tablet (12 sources)Aldosterone AntagonistStart: 29-39-9351rimb 1 tablet by mouth once dailySpironolactone 25 mg tablet Active 25 MG PO Daily April 19, 2025 11:00pm Complies with drug therapy Completed/Discontinued Medications MedicationDrug Class(es)DatesSig (Normalized)Sig (Original)apixaban 5 mg oral tablet (11 sources)Factor Xa InhibitorStart: 04-20-2025 End: 19-91-6929dxfz 1 tablet by mouth twice dailyApixaban (Eliquis) 5 mg tablet Discontinued 5 MG PO Twice daily April 19, 2025 11:00pm May 16, 2025 8:36amStart: 17-87-5104vooy 1 tablet by mouth in the morningEliquis 5 MG tablet Take 5 mg by mouth in the morning and 5 mg before bedtime. 12/14/2023 Active sacubitril 49 mg / valsartan 51 mg oral tablet (12 sources)Angiotensin 2 Receptor BlockerStart: 04-20-2025 End: 18-08-1353wijo 1 tablet by mouth twice dailySacubitril-Valsartan 49-51 mg tablet Discontinued 1 TAB PO Twice daily April 19, 2025 11:00pm May 16, 2025 8:39amStart: 88-55-6128xire 1 tablet by mouth in the morningsacubitril- valsartan (Entresto) 49-51 MG tablet Take 1 tablet by mouth in the morning and 1 tablet in the evening. 02/19/2023 Active Problems Active Problems Problem ClassificationProblemDateDocumented DateEpisodic/ChronicAcute and unspecified renal failure (2 sources)Acute renal failure syndrome; Translations: [Acute kidney failure, unspecified]14-63-8236BxjlpxiyYztced (16 sources)Mild persistent asthma, uncomplicated; Translations: [Unspecified asthma, uncomplicated]Onset: 294567-02-0378NcveufcCizbjy of prostate (12 sources)Malignant tumor of prostate; Translations: [Malignant neoplasm of prostate]Onset: 331496-13-0548XpqkdgaTtxkgsi dysrhythmias (20 sources)Atrial fibrillation; Translations: [Unspecified atrial fibrillation] Onset: 240580-89-8047VmkjrtpKancnlg kidney disease (2 sources)Chronic kidney disease stage 3A ; Translations: [Stage 3a chronic kidney disease]14-72-0632HklncgfTrxtoernxnzz of device; implant or graft (2 sources)Other specified complication of vascular prosthetic devices, implants and grafts, sequela; Translations: [Other specified complication of vascular prosthetic devices, implants and grafts, sequela]Onset: 06-82-1445Jqimqnif Conduction disorders (20 sources)Presence of automatic (implantable) cardiac defibrillator; Translations: [Automatic implantable cardiac defibrillator in situ]Onset: 31-58-4017AkwlvlaGhrcyoxzes heart failure; nonhypertensive (20 sources)Chronic systolic (congestive) heart failure; Translations: [Acute on chronic systolic (congestive) heart failure]Onset: 07-02-2022 Resolved: 91-79-2596SxzawyfFrednwem atherosclerosis and other heart disease (20 sources)Coronary arteriosclerosis; Translations: [Atherosclerotic heart disease of hug[place] coronary artery without angina pectoris]Onset: 07-06-2022 48-03-1350JdibemaFwrkvuuvzc and other anemia (2 sources)Anemia; Translations: [Anemia, unspecified]20-21-8414VqyuqkghFugvrfjm mellitus without complication (15 sources)Prediabetes; Translations: [Prediabetes]Onset: EpisodicDigestive congenital anomalies (1 source)Other specified congenital malformations of intestine; Translations: [OTH SPEC CONGEN MALFORM INTESTINE]Onset: 13-66-9966HscmyltGaskxfyxh of lipid metabolism (20 sources)Mixed hyperlipidemia; Translations: [Hyperlipidemia, unspecified] Onset: 523584-87-7338OedelzdWhflbezta hypertension (20 sources)Benign essential hypertension; Translations: [Essential (primary) hypertension]Onset: 05-27-2011 Resolved: 036341-51-0869NdzvaduEfyzc and electrolyte disorders (5 sources)Hypokalemia; Translations: [Hyponatremia]Onset: EpisodicGout and other crystal arthropathies (2 sources)Gout; Translations: [Gout, unspecified]27-37-1062AhltmzvCuvhntdw; including migraine (3 sources)Headache; including migraine; Translations: [HEADACHE UNSPECIFIED] Onset: 19-94-0242Rjniy valve disorders (1 source)Combined rheumatic disorders of mitral, aortic and tricuspid valves; Translations: [COMB RHEUMAT D/O MITRL AORTC TRICSP]Onset: 09-19-5278Sdoyoxj Hypertension with complications and secondary hypertension (3 sources)Hypertensive heart disease with heart failure; Translations: [HTN HEART DISEASE W/HEART FAIL]Onset: 80-78-5465ZmclxaxXlftjnu and fatigue (2 sources)Weakness; Translations: [Weakness]Onset: 36-93-5142LdoxegueUlqv disorders (13 sources)Major depressive disorder, single episode, unspecified; Translations: [Depressive disorder]Onset: 783546-17-6183SfvpghoRxxqtnwazpi chest pain (2 sources)Chest pain, unspecified; Translations: [Chest pain, unspecified] Onset: 62-36-0451UqjnpxwjKufvgbnvujt deficiencies (13 sources)Vitamin D deficiency, unspecified; Translations: [Vitamin D deficiency]Onset: 860631-30-8707FozdqwlAivkf and ill-defined heart disease (2 sources)Heart disease, unspecified; Translations: [Heart disease, unspecified]Onset: 49-46-0456WlqwjoiVthxc circulatory disease (2 sources)Presence of other cardiac implants and grafts; Translations: [Presence of other cardiac implants and grafts]Onset: 62-36-1672DlkpjiaKrtva circulatory disease (2 sources)Hemorrhage, not elsewhere classified; Translations: [Hemorrhage, not elsewhere classified]Onset: 92-91-5769EamwxlnqMsfro liver diseases (12 sources)Steatosis of liver; Translations: [Fatty (change of) liver, not elsewhere classified]Onset: 360076-86-4232UnkpusqUpoks non-traumatic joint disorders (4 sources)Effusion, left knee; Translations: [EFFUSION LEFT KNEE]Onset: 48-06-1376WfwpeobmJuswm nutritional; endocrine; and metabolic disorders (1 source)Obesity, unspecified; Translations: [OBESITY UNSPECIFIED]Onset: 30-93-6205JqbpjitNokbi nutritional; endocrine; and metabolic disorders (1 source)Body mass index (BMI) 30.0-30.9, adult; Translations: [BODY MASS INDEX BMI 30.0-30.9 ADULT]Onset: 96-07-2527NqxnpxtZcmla upper respiratory disease (12 sources)Allergic rhinitis due to pollen; Translations: [Allergic rhinitis due to pollen]Onset: 222879-62-1594AvrjcaiTydnd upper respiratory disease (12 sources)Seasonal allergic rhinitis; Translations: [Other seasonal allergic rhinitis]Onset: 190244-85-2358PsxtujjXuexl upper respiratory disease (10 sources)Chronic rhinitis; Translations: [Chronic rhinitis]Onset: 03-02-2023 Resolved: 278608-05-0716OxgqoojVyrdm upper respiratory disease (14 sources)Polyp of nasal cavity and/or nasal sinus; Translations: [Nasal polyp, unspecified]Onset: 365195-96-2836XcjgzzqhKijyd upper respiratory infections (12 sources)Chronic pansinusitis; Translations: [Chronic pansinusitis]Onset: 556543-13-9820HkwtqcyLvbx-; endo-; and myocarditis; cardiomyopathy (except that caused by tuberculosis or sexually transmitted disease) (18 sources)Cardiomyopathy; Translations: [Other cardiomyopathies]Onset: 351183-55-5229EnsvcadVfjm-; endo-; and myocarditis; cardiomyopathy (except that caused by tuberculosis or sexually transmitted disease) (4 sources)Pericardial effusion; Translations: [Pericardial effusion]05-16-2025 EpisodicResidual codes; unclassified (2 sources)Other specified postprocedural states; Translations: [Other specified postprocedural states]Onset: 64-12-3997HauvgbrnBatdvghlzv arthritis and related disease (1 source)Inflammatory polyarthropathy; Translations: [Inflammatory polyarthropathy]Onset: 75-27-1489KdygsgoKjiqunsnvmgz (1 source)CONTACT W/AND (SUSP) EXPOS COVID-19; Translations: [CONTACT W/AND (SUSP) EXPOS COVID-19]Onset: 95-40-8639Lpkfavxzsate (1 source)Other pericardial effusion (noninflammatory); Translations: [Other pericardial effusion (noninflammatory)]Onset: 04-19-2025 Past or Other Problems Problem ClassificationProblemDateDocumented DateEpisodic/ChronicCancer of prostate (11 sources)Personal history of malignant neoplasm of prostate; Translations: [History of malignant neoplasm ofprostate]Onset: 07-03-2022 Resolved: 458641-58-6255RuctskbqW Codes: Struck by; against (1 source)Striking against or struck by other objects, initial encounter; Translations: [STRIKING AGNST/STRUCK OTH OBJ INIT]Onset: 04-40-7837Zuzmhisb Immunizations and screening for infectious disease (1 source)Encounter for immunization; Translations: [ENCOUNTER FOR IMMUNIZATION] Onset: 96-70-3294DflyhuqvAqojx aftercare (1 source)Other terminologist (current) drug therapy; Translations: [OTH USP CURRENT DRUG THERAPY]Onset: 03-84-0800EkgdfnpnCfeuw connective tissue disease (4 sources)Pain in left foot; Translations: [PAIN IN LEFT FOOT]Onset: 08-18-2022 EpisodicOther injuries and conditions due to external causes (1 source)Unspecified injury of head, initial encounter; Translations: [UNSPECIFIED INJURY HEAD INITIAL ENC]Onset: 68-61-2214UhxeftnfVzdhk nutritional; endocrine; and metabolic disorders (10 sources)Hypomagnesemia; Translations: [Hypomagnesemia]Onset: 07-03-2022 Resolved: 102142-78-0409PuxnlcvOfzio screening for suspected conditions (not mental disorders or infectious disease) (4 sources)Encounter for screening for malignant neoplasm of colon; Translations: [ENC SCREEN MALIG NEOPLASM COLON]Onset: 14-58-5281Faywenni Screening and history of mental health and substance abuse codes (1 source)Personal history of nicotine dependence; Translations: [PERSONAL HISTORY OF NICOTINE DEPEND]Onset: 27-45-6462CbnyheyjUexcftp (11 sources)Syncope and collapse; Translations: [Syncope and collapse]Onset: 07-02-2022 Resolved: 324053-97-9648CtzfmuziJpvlgojpfbvh (1 source)Other pericardial effusion (noninflammatory); Translations: [Other pericardial effusion (noninflammatory)]Onset: 04-19-2025 Results Test NameValueInterpretationReference NwqfiRhruckff02jc 15-09-057049Lbwvr to Dr Wilcox office patient is scheduled 05/23/2025 at 1:20NormalUniversSelect Medical OhioHealth Rehabilitation HospitalOrders Onlyon 57-68-0637Amhhro OnlyNormalUniversity of [facility] Heart & Surgical HospitalGlomerular filtration rate (GFR) estimation in non- AmericanOrdered By: Elliott Nettles on 06-89-1853ONP/1.73 sq M.predicted among non- blacks MDRD (S/P/Bld) [Vol rate/Area]43 mL/min/{1.73_m2}Low>=60 mL/min/1.73m 2 [facility] HospitalLaboratory - Chemistry and Chemistry - challengeOrdered By: Elliott Nettles on 07-04-8440Vsznjnk [Mass/Vol]9.8 mg/dL 8.5-10.1FOhioHealthChloride [Moles/Vol]102 mmol/L98-107 [facility] HospitalCO2 [Moles/Vol]26.3 mmol/L21.0-32.0White HospitalCreatinine [Mass/Vol]1.60 mg/dLHigh0.70-1.30White HospitalGFR/1.73 sq M.predicted MDRD (S/P/Bld) [Vol rate/Area]52 mL/min/{1.73_m2}Low>=60 mL/min/1.73m 2FOhioHealthGlucose [Mass/Vol]99 mg/hM81-337UqqxxqkyxWhite HospitalNatriuretic peptide B (Bld) [Mass/Vol]3631.0 pg/mLCritically high<=900.0White HospitalComment on above:RESULTS CALLED TO ZAIDA Mayorgaassium [Moles/Vol]4.9 mmol/L3.5-5.1FUniversity Hospitals Conneaut Medical Centerodium [Moles/Vol]139 mmol/L 136-145White HospitalUrea nitrogen [Mass/Vol]41.0 mg/dLHigh 7.0-18.0White HospitalUrea nitrogen/Creatinine [Mass ratio] 25.6 mg/mgFisher-Titus Medical Centererum or plasma anion gap determinationOrdered By: Elliott Nettles on 80-79-0661Wkryh gap [Moles/Vol]15.6 mmol/LFOhioHealth36on 32-98-260782NfhcnyMlzhpggzsk of [place] [facility] Surgical HospitalBasophils Auto (Bld) [#/Vol]Ordered By: Outside Provider on 45-33-0935Yfzehhiqz (Bld) [#/Vol]0.0 10 3/uL0.0-0.1FOhioHealthBasophils/100 WBC Auto (Bld)Ordered By: Outside Provider on 05-07-2025 Basophils/100 WBC (Bld)0.3 %0.2-2.0[facility] Eosinophils/100 WBC Auto (Bld)Ordered By: Outside Provider on 05-07-2025 Eosinophils/100 WBC (Bld)1.2 %0.9-7.0[facility] Erythrocyte distribution width Auto (RBC) [Ratio]Ordered By: Outside Provider on 91-21-6923Cvkdrfshnas distribution width (RBC) [Ratio]14.5 %11.0-15.0White HospitalGlomerular filtration rate (GFR) estimation in non- AmericanOrdered By: Outside Provider on 45-95-4604UHO/1.73 sq M.predicted among non-blacks MDRD (S/P/Bld) [Vol rate/Area]44 mL/min/{1.73_m2} Low>=60 mL/min/1.73m 2FOhioHealthHematocrit Auto (Bld) [Volume fraction]Ordered By: Outside Provider on 97-95-5175Tnkcblnebh (Bld) [Volume fraction]33.4 %Low42.0-54.0White HospitalHemoglobin [Mass/volume] in BloodOrdered By: Outside Provider on 68-65-7506Snrdldclut (Bld) [Mass/Vol]11.3 g/dLLow14.0-18.0[facility] HospitalLaboratory - Chemistry and Chemistry - challengeOrdered By: Outside Provider on 05-07-2025 Calcium [Mass/Vol]9.0 mg/dL8.5-10.1FOhioHealthChloride [Moles/Vol]100 mmol/G82-452ZsdfszctcWhite HospitalCO2 [Moles/Vol]25.3 mmol/L21.0-32.0[facility] HospitalCreatinine [Mass/Vol]1.57 mg/dL High0.70-1.30White HospitalGFR/1.73 sq M.predicted MDRD (S/P/Bld) [Vol rate/Area]53 mL/min/{1.73_m2}Low>=60 mL/min/1.[address]m [address] [place], [place] [address]Glucose [Mass/Vol]98 mg/vP76-009NrkzqnnmxWhite HospitalPotassium [Moles/Vol]4.2 mmol/L3.5-5.1FUniversity Hospitals Conneaut Medical Centerodium [Moles/Vol]136 mmol/K920-003UizefcuzvWhite HospitalUrea nitrogen [Mass/Vol]31.0 mg/dLHigh7.0-18.0White HospitalUrea nitrogen/Creatinine [Mass ratio]19.7 mg/mgWhite Hospital Laboratory - Hematology and Cell countsOrdered By: Outside Provider on 50-44-4167Gliwnhcn granulocytes/100 WBC (Bld)0.3 %0.0-0.5FOhioHealthLeukocytes [#/volume] corrected for nucleated erythrocytes in Blood by Automated counOrdered By: Outside Provider on 91-96-1064WDP corrected for nucl RBC Auto (Bld) [#/Vol]6.6 10 3/uL4.0-11.0White HospitalLymphocytes Auto (Bld) [#/Vol]Ordered By: Outside Provider on 05-07-2025 Lymphocytes (Bld) [#/Vol]1.9 10 3/uL1.2-3.8[facility] Lymphocytes/100 WBC Auto (Bld)Ordered By: Outside Provider on 05-07-2025 Lymphocytes/100 WBC (Bld)28.5 %20.5-60.0[facility] HospitalH Auto (RBC) [Entitic mass]Ordered By: Outside Provider on 44-20-1646DEN (RBC) [Entitic mass]31.4 pg25.9-34.0White HospitalMCHC Auto (RBC) [Mass/Vol]Ordered By: Outside Provider on 82-07-7063BWSR (RBC) [Mass/Vol]33.8 g/dL29.9-35.2FOhioHealthMCV Auto (RBC) [Entitic vol] Ordered By: Outside Provider on 24-73-4200CGT (RBC) [Entitic vol]92.8 fL 80.0-94.0White HospitalMonocytes Auto (Bld) [#/Vol]Ordered By: Outside Provider on 75-15-0466Pstzocaoe (Bld) [#/Vol]0.9 10 3/uLHigh0.3-0.8 White HospitalMonocytes/100 WBC Auto (Bld)Ordered By: Outside Provider on 25-36-2075Artjwpmsx/100 WBC (Bld)13.9 %High1.7-12.0White HospitalNeutrophils Auto (Bld) [#/Vol]Ordered By: Outside Provider on 05-57-8664Pircxygimad (Bld) [#/Vol]3.7 10 3/uL1.4-6.5FOhioHealthNeutrophils/100 WBC Auto (Bld)Ordered By: Outside Provider on 45-57-8313Kgoobesbmwh/100 WBC (Bld)55.8 %43.0-75.0White HospitalNo Panel InformationOrdered By: Outside Provider on 05-07-2025 Eosinophils # (Auto)0.1 10 3/uL0.0-0.7FOhioHealthImmature Granulocyte # (Auto)0.02 10 3/uL0.00-0.03White HospitalOrders Onlyon 46-24-3319Ywwiwk OnlyNormalUniversity of Lub[facility] Heart & Surgical HospitalPlatelet mean volume Auto (Bld) [Entitic vol]Ordered By: Outside Provider on 05-07-2025 Platelet mean volume (Bld) [Entitic vol]10.5 fL9.5-13.5FOhioHealthPlatelets Auto (Bld) [#/Vol]Ordered By: Outside Provider on 71-49-5355Ikvigflmq (Bld) [#/Vol]320 10 3/vE906-238QjixiajhlWhite HospitalRBC Auto (Bld) [#/Vol]Ordered By: Outside Provider on 64-45-1786TTX (Bld) [#/Vol]3.60 10 6/uLLow4.70-6.10[facility] Medical Centererum or plasma anion gap determinationOrdered By: Outside Provider on 40-72-7437Rtejt gap [Moles/Vol]14.9 mmol/LFOhioHealthTelephoneon 05-07-2025 TelephoneNormalUniversSelect Medical OhioHealth Rehabilitation HospitalBASIC METABOLIC PANELon 63-81-4507Arlly gap [Moles/Vol]15 mmol/LNormal7-20UnAvita Health System Bucyrus HospitalComment on above:Performed By: #### [id number] ####[facility] ([facility])[address] [place], [place] [address]Omxqaxh [Mass/Vol]7.3 mg/dLLow8.6-10.3 [facility] HospitalComment on above:Performed By: #### [id number] ####[facility] ([facility])[address] [place], [place] [address]Vbyiookg [Moles/Vol]94 mmol/FOjh82-538ZzjfiwvatlAvita Health System Bucyrus HospitalComment on above:Performed By: #### [id number] ####[facility] ([facility])[address] [place], [place] [address]AA3 [Moles/Vol]23 mmol/POfxpkd42-75BsmzsmbfupAvita Health System Bucyrus HospitalComment on above:Performed By: #### [id number] ####[facility] ([facility])[address] [place], [place] [address]Giahjqekwl [Mass/Vol]1.58 mg/dLHigh 0.70-1.30UnAvita Health System Bucyrus HospitalComment on above:Performed By: #### [id number] ####[facility] ([facility])[address] [place], [place] [address]YZWKCXNBTW FILTRATION RATE ML/MIN/1.73 SQ M.VIZNOJBEI87.1 mL/min/1.73m*2Low>60.0UnAvita Health System Bucyrus HospitalComment on above:Result Comment: [facility]???s estimated glomerular filtration rate (eGFR) will [...] group of individuals. Performed By: #### [id number] ####[facility] ([facility])[address] [place] [address]Zzvetbq [Mass/Vol]81 mg/jNVupzun22-269FhkbeubuckAvita Health System Bucyrus HospitalComment on above:Performed By: #### [id number] ####[facility] ([facility])[address] [place] [address]Omanmicyh [Moles/Vol]3.7 mmol/LNormal 3.5-5.1UnAvita Health System Bucyrus HospitalComment on above:Performed By: #### [id number] ####[facility] ([facility])[address] [place] [address]Jwwfpz [Moles/Vol]128 mmol/ACte175-059NeiugdfmypAvita Health System Bucyrus HospitalComment on above:Performed By: #### [id number] ####[facility] ([facility])[address] [place] [address]Unnf nitrogen [Mass/Vol]25 mg/dLNormal7-25UnAvita Health System Bucyrus HospitalComment on above:Performed By: #### [id number] ####[facility] ([facility])[address] [place] [address]PPWG NITROGEN/CREATININE (MASS RATIO) IN SER/PLAS15.8NormalUniversSelect Medical OhioHealth Rehabilitation HospitalComment on above: Performed By: #### [id number] ####[facility] ([facility])[address] [place] [address]XET WITH AUTO DIFFERENTIALon 12-98-3198Gdbfkyfdx (Bld) [#/Vol]0.01 10*3/uLNormal0.00-0.20UnAvita Health System Bucyrus HospitalComment on above: Performed By: #### [id number] ####[facility] ([facility])[address] [place] [address]Krnysnvlp/100 WBC (Bld)0.2 %Normal0.0-1.0UnAvita Health System Bucyrus HospitalComment on above:Performed By: #### [id number] ####[facility] ([facility])[address] [place], [place] [address]Idbaxyjdbbp (Bld) [#/Vol]0.03 10*3/uL Normal0.00-0.50UnAvita Health System Bucyrus HospitalComment on above:Performed By: #### [id number] ####[facility] ([facility])[address] [place] [address] Eosinophils/100 WBC (Bld)0.5 %Normal0.0-6.0UnAv[facility] Hospital Comment on above:Performed By: #### [id number] ####[facility] ([facility])[address] [place], [place] [address]Blbephbhpbw distribution width (RBC) [Ratio]14.7 % Nxtget62.5-15.0UnAvita Health System Bucyrus HospitalComment on above:Performed By: #### [id number] ####[facility] ([facility])[address] [place] [address] ERYTHROCYTE MEAN CORPUSCULAR HEMOGLOBIN CONCENTRATION (G/DL) BY NECOQWGSO05.6 g/gGLcohnh24.0-35.0UnAvita Health System Bucyrus HospitalComment on above:Performed By: #### [id number] ####[facility] ([facility])[address] [place], [place] [address]Enorarjseb (Bld) [Volume fraction]28.3 %Low39.0-50.0UnAvita Health System Bucyrus HospitalComment on above:Performed By: #### [id number] ####[facility] ([facility])[address] [place], [place] [address]Nxyxwumrwk (Bld) [Mass/Vol]9.8 g/dLLow 13.0-17.0UnAvita Health System Bucyrus HospitalComment on above:Performed By: #### [id number] ####[facility] ([facility])[address] [place], [place] [address]Jybvzmzb granulocytes (Bld) [#/Vol]0.03 10*3/uLNormal0.00-0.20UnAvita Health System Bu[facility]rus HospitalComment on above:Performed By: #### [id number] ####[facility] ([facility])[address] [place], [place] [address]Klkhzkzl granulocytes/100 WBC (Bld)0.5 %Normal0.0-1.0UnAvita Health System Bucyrus HospitalComment on above:Performed By: #### [id number] ####[facility] ([facility])[address] [place] [address] Lymphocytes (Bld) [#/Vol]0.86 10*3/uLLow1.20-4.00UnAvita Health System Bucyrus HospitalComment on above:Performed By: #### [id number] ####[facility] ([facility])[address] [place], [place] [address]Qpcfwxbiuap/100 WBC (Bld)14.2 %Low 20.0-45.0UnAvita Health System Bucyrus HospitalComment on above:Performed By: #### [id number] ####[facility] ([facility])[address] [place], [place] [address]QEW (RBC) [Entitic mass]31.6 buDmtkjf97.0-33.0UnAv[facility] Hospital Comment on above:Performed By: #### [id number] ####[facility] ([facility])[address] [place], [place] [address]MZJ (RBC) [Entitic vol]91.3 mUUphnlc25.0-98.0 [facility] HospitalComment on above:Performed By: #### [id number] ####[facility] ([facility])[address] [facility] [place], [place] [address]Xfyuxebyi (Bld) [#/Vol]0.86 10*3/uLNormal0.10-1.00UnAvita Health System Bucyrus HospitalComment on above:Performed By: #### [id number] ####[facility] ([facility])[address] [facility] [place] [address]Gepazgomz/100 WBC (Bld)14.2 %High5.0-12.0UnAvita Health System Bucyrus HospitalComment on above:Performed By: #### [id number] ####[facility] ([facility])[address] [place] [address]Nnsfcebtcnw (Bld) [#/Vol]4.25 10*3/uL Normal1.60-7.60UnAvita Health System Bucyrus HospitalComment on above:Performed By: #### [id number] ####[facility] ([facility])[address] [place] [address] Neutrophils/100 WBC (Bld)70.4 %Qgrwpv76.0-72.0UnAvita Health System Bucyrus HospitalComment on above:Performed By: #### [id number] ####[facility] ([facility])[address] [place] [address]SCFY (PER 100 WBCS) BY AUTOMATED COUNT 0.0 %Ptwukj3AqqeijadraAvita Health System Bucyrus HospitalComment on above:Performed By: #### [id number] ####[facility] ([facility])[address] [place] [address] PLATELETS (10*3/UL) IN BLOOD AUTOMATED [id number] 10*3/pMTasnyu702-946EbesdawvuoAvita Health System Bucyrus HospitalComment on above:Performed By: #### [id number] ####[facility] ([facility])[address] [place] [address]AJP (Bld) [#/Vol]3.10 10*6/uLLow4.20-5.70UnAvita Health System Bucyrus HospitalComment on above:Performed By: #### [id number] ####[facility] ([facility])[address] [place] [address]UVY (Bld) [#/Vol]6.04 10*3/uLNormal4.00-10.60UnAvita Health System Bu[facility]rus HospitalComment on above:Performed By: #### [id number] ####[facility] ([facility])[address] [place] [address]ZDUOPKTmh 62-28-7675ESKJYVUJadjgq [facility] HospitalDSon 65-94-3625OSQkljjePqybicvhgf of [place] Medical CenterMAGNESIUMon 95-80-1920Vxakplasq [Mass/Vol]2.0 mg/dLNormal1.9-2.7 [facility] HospitalComment on above:Performed By: #### [id number] ####[facility] ([facility])[address] [place], [place] [address]HIBSDMLWvr 28-08-8579COXWPZODSslhsvSdmvhaancg of [place] Medical CenterNURSNOTENormUniversity Hospitals Elyria Medical CenterOrders Onlyon 01-38-96[address]Qifust OnlyNormal [facility] HospitalPHOSPHORUSon 77-58-3978Yfyugzwze [Mass/Vol] 3.1 mg/dLNormal2.5-5.0UnAvita Health System Bucyrus HospitalComment on above: Performed By: #### [id number] ####[facility] ([facility])[address] [place] [address]12vf 15-86-241028XxinfoKhbydvmbgk of [place] [facility] Tizqae75 NormalUnAvita Health System Bucyrus HospitalBASIC METABOLIC PANELon 15-60-7704Iedgm gap [Moles/Vol]14 mmol/LNormal7-20UnAvita Health System Bu[facility] HospitalComment on above:Performed By: #### [id number] ####[facility] ([facility])[address] [place], [place] [address]Adxnwpm [Mass/Vol]7.3 mg/dLLow8.6-10.3UnAvita Health System Bu[facility]rus HospitalComment on above:Performed By: #### [id number] ####[facility] ([facility])[address] [place], [place] [address]Ggxstkfz [Moles/Vol]94 mmol/XMmk92-216 [facility] HospitalComment on above:Performed By: #### [id number] ####[facility] ([facility])[address] [place], [place] [address]NL2 [Moles/Vol] 25 mmol/PNovkwh47-65KisvpjyamhAvita Health System Bucyrus HospitalComment on above: Performed By: #### [id number] ####[facility] ([facility])[address] [place] [address]Kgyesqmwjq [Mass/Vol]1.75 mg/dLHigh0.70-1.30UnAvita Health System Bu[facility]rus HospitalComment on above:Performed By: #### [id number] ####[facility] ([facility])[address] [place] [address]LVYUJMILEV FILTRATION RATE ML/MIN/1.73 SQ M.SEHXSOZQN08.6 mL/min/1.73m*2Low>60.0UnAv[facility] Hospital Comment on above:Result Comment: [facility]???s estimated glomerular filtration rate (eGFR) will [...] anyone group of individuals.Performed By: #### [id number] ####[facility] ([facility])[address] [place] [address]Rbbglss [Mass/Vol]89 mg/fOOqanar04-506WlwpbefiusAvita Health System Bucyrus HospitalComment on above:Performed By: #### [id number] ####[facility] ([facility])[address] [place] [address]Cyemndrdd [Moles/Vol]4.1 mmol/LNormal3.5-5.1UnAvita Health System Bucyrus HospitalComment on above:Performed By: #### [id number] ####[facility] ([facility])[address] [place] [address]Nsronr [Moles/Vol]129 mmol/LLow 136-145UnAvita Health System Bucyrus HospitalComment on above:Performed By: #### [id number] ####[facility] ([facility])[address] [place] [address]Viam nitrogen [Mass/Vol]24 mg/dLNormal7-25UnAvita Health System Bucyrus HospitalComment on above:Performed By: #### [id number] ####[facility] ([facility])[address] [place], [place] [address]VZPI NITROGEN/CREATININE (MASS RATIO) IN SER/PLAS13.7Normal [facility] HospitalComment on above:Performed By: #### [id number] ####[facility] ([facility])[address] [place], [place] [address]QRXN FLUID CULTUREon 43-92-1417Fjzjswmlvht [Susc]<=0.5SusceptibleUnAvita Health System Bucyrus HospitalComment on above:Order Comment: Rare Growth Skin FloraPerformed By: #### [id number] ####[facility] ([facility])[address] [place] [address] Oxacillin [Susc]<=0.25SusceptibleUnAvita Health System Bucyrus HospitalComment on above:Order Comment: Rare Growth Skin FloraPerformed By: #### [id number] ####[facility] ([facility])[address] [place], [place] [address]Tjyhpyakldru [Susc]<=0.5 SusceptibleUnAvita Health System Bucyrus HospitalComment on above:Order Comment: Rare Growth Skin FloraPerformed By: #### [id number] ####[facility] ([facility])[address] [place], [place] [address]Hjjvnwigwf [Susc]<=0.5Susceptible [facility] HospitalComment on above:Order Comment: Rare Growth Skin FloraPerformed By: #### [id number] ####[facility] ([facility])[address] [place], [place] [address]SLU WITH AUTO DIFFERENTIALon 25-82-8433Cssvylugu (Bld) [#/Vol]0.01 10*3/uLNormal0.00-0.20UnAvita Health System Bucyrus HospitalComment on above:Performed By: #### [id number] ####[facility] ([facility])[address] [place], [place] [address]Zokkenydw/100 WBC (Bld)0.2 %Normal0.0-1.0UnAvita Health System Bucyrus HospitalComment on above:Performed By: #### [id number] ####[facility] ([facility])[address] [place], [place] [address]Bwunkillgqc (Bld) [#/Vol]0.05 10*3/uL Normal0.00-0.50UnAvita Health System Bucyrus HospitalComment on above:Performed By: #### [id number] ####[facility] ([facility])[address] [place] [address] Eosinophils/100 WBC (Bld)0.8 %Normal0.0-6.0Un[facility] Comment on above:Performed By: #### [id number] ####[facility] ([facility])[address] [place], [place] [address]Euixjuxsoev distribution width (RBC) [Ratio]14.9 % Hbjfxw46.5-15.0UnAvita Health System Bucyrus HospitalComment on above:Performed By: #### [id number] ####[facility] ([facility])[address] [place] [address] ERYTHROCYTE MEAN CORPUSCULAR HEMOGLOBIN CONCENTRATION (G/DL) BY FEJRKGDDB15.6 g/rZYqpdhv77.0-35.0UnAvita Health System Bucyrus HospitalComment on above:Performed By: #### [id number] ####[facility] ([facility])[address] [place], [place] [address]Drvyenmxtc (Bld) [Volume fraction]27.4 %Low39.0-50.0UnAvita Health System Bucyrus HospitalComment on above:Performed By: #### [id number] ####[facility] ([facility])[address] [place], [place] [address]Czumqgfsfq (Bld) [Mass/Vol]9.2 g/dLLow 13.0-17.0UnAvita Health System Bucyrus HospitalComment on above:Performed By: #### [id number] ####[facility] [place], [place] [address]Vucrenya granulocytes (Bld) [#/Vol]0.07 10*3/uLNormal0.00-0.20UnAvita Health System Bucyrus HospitalComment on above:Performed By: #### [id number] ####[facility] ([facility])[address] [place] [address]Ihcmxjso granulocytes/100 WBC (Bld)1.1 %High0.0-1.0UnAvita Health System Bucyrus HospitalComment on above:Performed By: #### [id number] ####[facility] ([facility])[address] [place] [address] Lymphocytes (Bld) [#/Vol]0.98 10*3/uLLow1.20-4.00UnAvita Health System Bu[facility] HospitalComment on above:Performed By: #### [id number] ####[facility] ([facility])[address] [place], [place] [address]Auibgelbalk/100 WBC (Bld)15.8 %Low 20.0-45.0UnAvita Health System Bucyrus HospitalComment on above:Performed By: #### [id number] ####[facility] ([facility])[address] [place], [place] [address]GDG (RBC) [Entitic mass]31.2 frDmvoit98.0-33.0Un[facility] Comment on above:Performed By: #### [id number] ####[facility] ([facility])[address] [place], [place] [address]IMU (RBC) [Entitic vol]92.9 eNOnrfch63.0-98.0 [facility] HospitalComment on above:Performed By: #### [id number] ####[facility] ([facility])[address] [facility] [place] [address]Ihlozdbhq (Bld) [#/Vol]1.00 10*3/uLNormal0.10-1.00UnAvita Health System Bucyrus HospitalComment on above:Performed By: #### [id number] ####[facility] ([facility])[address] [place], [place] [address]Bztmiwpxy/100 WBC (Bld)16.1 %High5.0-12.0UnAvita Health System Bucyrus HospitalComment on above:Performed By: #### [id number] ####[facility] ([facility])[address] [place], [place] [address]Jdyhwqxgkmv (Bld) [#/Vol]4.11 10*3/uL Normal1.60-7.60UnAvita Health System Bucyrus HospitalComment on above:Performed By: #### [id number] ####[facility] ([facility])[address] [place] [address] Neutrophils/100 WBC (Bld)66.0 %Livlfa17.0-72.0UnAvita Health System Bucyrus HospitalComment on above:Performed By: #### [id number] ####[facility] ([facility])[address] [place], [place] [address]VICE (PER 100 WBCS) BY AUTOMATED COUNT 0.0 %Eohtlm2MmudsknojtAvita Health System Bucyrus HospitalComment on above:Performed By: #### [id number] ####[facility] ([facility])[address] [place] [address] PLATELETS (10*3/UL) IN BLOOD AUTOMATED [id number] 10*3/jPPuskrq304-992RlcwjjnmfyAvita Health System Bucyrus HospitalComment on above:Performed By: #### [id number] ####[facility] ([facility])[address] [place], [place] [address]YVP (Bld) [#/Vol]2.95 10*6/uLLow4.20-5.70UnAvita Health System Bucyrus HospitalComment on above:Performed By: #### [id number] ####[facility] ([facility])[address] [place], [place] [address]HPY (Bld) [#/Vol]6.22 10*3/uLNormal4.00-10.60UnAvita Health System Bucyrus HospitalComment on above:Performed By: #### [id number] ####[facility] ([facility] [place], [place] [address]IKBHPSAGxi 27-22-5650XBZWAUQPYbkkoiOhioHealth Arthur G.H. Bing, MD, Cancer CenterNURSNOTENormalUniversity Kettering Health DaytonNURSNOTENormalUniversity Kettering Health DaytonPHOSPHORUSon 05-03-2025 Magnesium [Mass/Vol]1.8 mg/dLLow1.9-2.7UnAv[facility] Comment on above:Performed By: #### [id number] ####[facility] ([facility])[address] [place], [place] [address]Bypsurozk By: #### [id number] ####[facility] ([facility])[address] [place] [address]36an 31-78-622994Llt patient is Moderately Stable - Low risk of patient condition declining or worsening The patient's goals for the shift include comfort, rest The clinical goals for the shift include stable labsNormalUniversity of [facility]30The patient is Moderately Unstable - Medium risk of patient condition declining or worsening The patient's goals for the shift include comfort, rest The clinical goals for the shift include stable labsNormalUniversity of Lubbock Heart & Surgical HospitalCBC WITH AUTO DIFFERENTIALon 58-34-4008Luwqthnqx (Bld) [#/Vol]0.01 10*3/uLNormal0.00-0.20UnAvita Health System Bucyrus HospitalComment on above: Performed By: #### [id number] ####[facility] ([facility])[address] [place], [place] [address]Willeabqy/100 WBC (Bld)0.2 %Normal0.0-1.0UnAvita Health System Bucyrus HospitalComment on above:Performed By: #### [id number] ####[facility] ([facility])[address] [facility] [place] [facility] [address]Hxweehgyrgy (Bld) [#/Vol]0.02 10*3/uL Normal0.00-0.50UnAvita Health System Bucyrus HospitalComment on above:Performed By: #### [id number] ####[facility] ([facility])[address] [place] [address] Eosinophils/100 WBC (Bld)0.3 %Normal0.0-6.0Un[facility] Comment on above:Performed By: #### [id number] ####[facility] ([facility])[address] [place], [place] [address]Ujcsnkuzyji distribution width (RBC) [Ratio]15.1 % High11.5-15.0UnAvita Health System Bucyrus HospitalComment on above:Performed By: #### [id number] ####[facility] ([facility])[address] [place] [address] ERYTHROCYTE MEAN CORPUSCULAR HEMOGLOBIN CONCENTRATION (G/DL) BY QHUIYGWYA97.1 g/iPLdgnhe92.0-35.0UnAvita Health System Bucyrus HospitalComment on above:Performed By: #### [id number] ####[facility] ([facility])[address] [place], [place] [address]Requwxahih (Bld) [Volume fraction]24.6 %Low39.0-50.0UnAv[facility] HospitalComment on above:Performed By: #### [id number] ####[facility] ([facility])[address] [place], [place] [address]Lhatdlssdo (Bld) [Mass/Vol]8.4 g/dLLow 13.0-17.0Un[facility] HospitalComment on above:Performed By: #### [id number] ####[facility] ([facility])[address] [place], [place] [address]Eoapvtkx granulocytes (Bld) [#/Vol]0.05 10*3/uLNormal0.00-0.20Un[facility] HospitalComment on above:Performed By: #### [id number] ####[facility] ([facility] [place], [place] [address]Lkjyfocn granulocytes/100 WBC (Bld)0.8 %Normal0.0-1.0Un[facility] HospitalComment on above:Performed By: #### [id number] ####[facility] ([facility] [place] [address] Lymphocytes (Bld) [#/Vol]0.95 10*3/uLLow1.20-4.00Un[facility] HospitalComment on above:Performed By: #### [id number] ####[facility] ([facility])[address] [place] [address]Evefeqkzhke/100 WBC (Bld)16.0 %Low 20.0-45.0Un[facility] HospitalComment on above:Performed By: #### [id number] ####[facility] ([facility])[address] [place] [address]HQO (RBC) [Entitic mass]31.9 lmZhmubh64.0-33.0[facility] Comment on above:Performed By: #### [id number] ####[facility] ([facility])[address] [place], [place] [address]EVW (RBC) [Entitic vol]93.5 yZQwaftl62.0-98.0 [facility] HospitalComment on above:Performed By: #### [id number] ####[facility] ([facility])[address] [place], [place] [address]Lpsddvuik (Bld) [#/Vol]0.93 10*3/uLNormal0.10-1.00Un[facility] HospitalComment on above:Performed By: #### [id number] ####[facility] ([facility])[address] [place], [place] [address]Gvmgxjqtt/100 WBC (Bld)15.7 %High5.0-12.0Un[facility] HospitalComment on above:Performed By: #### [id number] ####[facility] ([facility])[address] [place], [place] [address]Lopliqculev (Bld) [#/Vol]3.98 10*3/uL Normal1.60-7.60Un[facility] HospitalComment on above:Performed By: #### [id number] ####[facility] ([facility])[address] [place] [address] Neutrophils/100 WBC (Bld)67.0 %Hxbeqh95.0-72.0Un[facility] HospitalComment on above:Performed By: #### [id number] ####[facility] ([facility])[address] [place] [address]EYJG (PER 100 WBCS) BY AUTOMATED COUNT 0.3 %Slmj6SfbkkvqecsAvita Health System Bucyrus HospitalComment on above:Performed By: #### [id number] ####[facility] ([facility])[address] [place] [address] PLATELETS (10*3/UL) IN BLOOD AUTOMATED [id number] 10*3/iCPhhlyu204-204GmmdprmrquAvita Health System Bucyrus HospitalComment on above:Performed By: #### [id number] ####[facility] ([facility])[address] [place] [address]MVY (Bld) [#/Vol]2.63 10*6/uLLow4.20-5.70UnAvita Health System Bucyrus HospitalComment on above:Performed By: #### [id number] ####[facility] ([facility])[address], [place] [address]TAC (Bld) [#/Vol]5.94 10*3/uLNormal4.00-10.60UnAvita Health System Bucyrus HospitalComment on above:Performed By: #### [id number] ####[facility] ([facility])[address], [place] [address]GNCWHRGDVUYHU METABOLIC PANELon 04-72-5285Amjqxpv [Mass/Vol]3.1 g/dLLow3.5-5.7UnAvita Health System Bucyrus HospitalComment on above:Performed By: #### [id number] ####[facility] ([facility])[address], [place] [address]CUY [Catalytic activity/Vol]60 U/L Joxkfp84-811CluacrxaxoAvita Health System Bucyrus HospitalComment on above:Performed By: #### [id number] ####[facility] ([facility])[address], [place] [address]NJW [Catalytic activity/Vol]129 U/LHigh7-52Un[facility] Comment on above:Performed By: #### [id number] ####[facility] ([facility])[address] [place], [place] [address]Burhz gap [Moles/Vol]10 mmol/LNormal7-20UnAv[facility] Health System Bu[facility] HospitalComment on above:Performed By: #### [id number] ####[facility] ([facility])[address] [place], [place] [address]ETI [Catalytic activity/Vol]54 U/PQnaa98-69BlkzwalaneAvita Health System Bucyrus HospitalComment on above: Performed By: #### [id number] ####[facility] ([facility])[address] [place], [place] [address]Glgbtiqqx [Mass/Vol]0.7 mg/dLNormal0.3-1.0UnAvita Health System Bu[facility] HospitalComment on above:Performed By: #### [id number] ####[facility] ([facility])[address] [place], [place] [address]Lmdeohs [Mass/Vol]7.3 mg/dLLow8.6-10.3 [facility] HospitalComment on above:Performed By: #### [id number] ####[facility] ([facility])[address] [place], [place] [address]Cyapfstp [Moles/Vol]93 mmol/LWla79-118SgpfqundbyAvita Health System Bucyrus HospitalComment on above:Performed By: #### [id number] ####[facility] ([facility])[address] [place], [place] [address]VF1 [Moles/Vol]33 mmol/SPvyn31-79GmmxnlhstaAvita Health System Bucyrus HospitalComment on above:Performed By: #### [id number] ####[facility] ([facility])[address] [place], [place] [address]Sgtcjfssix [Mass/Vol]1.69 mg/dLHigh 0.70-1.30UnAvita Health System Bucyrus HospitalComment on above:Performed By: #### [id number] ####[facility] ([facility])[address] [place], [place] [address]DAGVULEHNH FILTRATION RATE ML/MIN/1.73 SQ M.ZRRPOOMDJ38.4 mL/min/1.73m*2Low>60.0UnAvita Health System Bucyrus HospitalComment on above:Result Comment: [facility]???s estimated glomerular filtration rate (eGFR) will [...] group of individuals. Performed By: #### [id number] ####[facility] ([facility])[address] [place], [place] [address]Drnxmkp [Mass/Vol]105 mg/dBOvjt25-544JyizgahdvlAvita Health System Bucyrus HospitalComment on above:Performed By: #### [id number] ####[facility] ([facility])[address] [place], [place] [address]Sittjcvhc [Moles/Vol]3.1 mmol/LLow 3.5-5.1UnAv[facility] Health System Bu[facility] HospitalComment on above:Performed By: #### [id number] ####[facility] ([facility])[address] [place], [place] [address]Hlqmmtu [Mass/Vol]5.4 g/dLLow6.0-8.3UnAvita Health System Bu[facility] HospitalComment on above: Performed By: #### [id number] ####[facility] ([facility])[address] [place], [place] [address]Qxrkdm [Moles/Vol]133 mmol/VSee646-488LovzjsvprrAvita Health System Bucyrus HospitalComment on above:Performed By: #### [id number] ####[facility] ([facility])[address] [place], [place] [address]Rtxx nitrogen [Mass/Vol]20 mg/dLNormal 7-25UnAvita Health System [facility] HospitalComment on above:Performed By: #### [id number] ####[facility] ([facility])[address] [place] [address]NEJR NITROGEN/CREATININE (MASS RATIO) IN SER/PLAS11.8NormalUniversSelect Medical OhioHealth Rehabilitation HospitalComment on above:Performed By: #### [id number] ####[facility] ([facility])[address] [place] [address]LMUOWXXEYjz 82-01-3414Zlrlzvgpg [Mass/Vol]1.8 mg/dLLow1.9-2.7UnAv[facility] Health System [facility] HospitalComment on above:Performed By: #### [id number] ####[facility] ([facility])[address] [place] [address]JYIDLYFICOgx 09-56-6343Jhkzxzxvk [Mass/Vol]2.5 mg/dLNormal 2.5-5.0UnAv[facility] Health System Bu[facility] HospitalComment on above:Performed By: #### [id number] ####[facility] ([facility])[address] [place] [address]zo [phone] patient is Moderately Unstable - Medium risk of patient condition declining or worsening The patient's goals for the shift include Comfort, rest The clinical goals for the shift include VSSNormalUniversSelect Medical OhioHealth Rehabilitation HospitalBASIC METABOLIC PANELon 12-42-5657Uvcne gap [Moles/Vol]9 mmol/LNormal7-20 [facility] HospitalComment on above:Performed By: #### [id number] ####[facility] ([facility])[address] [place] [address]Cgiuvpc [Mass/Vol]7.7 mg/dLLow8.6-10.3UnAvita Health System Bu[facility] HospitalComment on above:Performed By: #### [id number] ####[facility] ([facility])[address] [place] [address]Mtfudjsj [Moles/Vol]96 mmol/HFvp17-060FtkwxrdfssAvita Health System Bucyrus HospitalComment on above:Performed By: #### [id number] ####[facility] ([facility])[address] [place] [address]TE0 [Moles/Vol]35 mmol/ISbkm85-70 [facility] HospitalComment on above:Performed By: #### [id number] ####[facility] ([facility])[address] [place] [address]Cswnxdpnpr [Mass/Vol]1.01 mg/dLNormal0.70-1.30UnAv[facility] Health System Bu[facility] HospitalComment on above:Performed By: #### [id number] ####[facility] ([facility])[address] [place], [place] [address]RJYZVQWIVI FILTRATION RATE ML/MIN/1.73 SQ M.UDGATHXHC72.5 mL/min/1.73m*2Normal>60.0UnAvita Health System Bu[facility]rus HospitalComment on above: Result Comment: [facility]???s estimated glomerular filtration rate (eGFR) will [...] anyone group of individuals.Performed By: #### [id number] ####[facility] ([facility])[address] [place], [place] [address]Eyputkt [Mass/Vol]99 mg/iMZryjlx03-699YgsrjtpbcjAvita Health System Bucyrus HospitalComment on above:Performed By: #### [id number] ####[facility] ([facility])[address] [place], [place] [address]Hcfpyyoxu [Moles/Vol]3.9 mmol/LNormal3.5-5.1UnAv[facility] Health System [facility] HospitalComment on above:Performed By: #### [id number] ####[facility] ([facility])[address] [place] [address] Sodium [Moles/Vol]136 mmol/FPtszxs726-470KowyvkojmhAvita Health System Bucyrus Hospital Comment on above:Performed By: #### [id number] ####[facility] ([facility])[address] [place], [place] [address]Mici nitrogen [Mass/Vol]11 mg/dLNormal7-25 [facility] HospitalComment on above:Performed By: #### [id number] ####[facility] ([facility])[address] [place], [place] [address]MUPC NITROGEN/CREATININE (MASS RATIO) IN SER/PLAS10.9NormalUniversSelect Medical OhioHealth Rehabilitation HospitalComment on above:Performed By: #### [id number] ####[facility] ([facility])[address] [place], [place] [address]Smcxp gap [Moles/Vol]11 mmol/LNormal 7-20UnAvita Health System [facility] HospitalComment on above:Performed By: #### [id number] ####[facility] ([facility])[address] [place], [place] [address]Vytdirn [Mass/Vol]7.8 mg/dLLow8.6-10.3UnAvita Health System [facility] HospitalComment on above:Performed By: #### [id number] ####[facility] ([facility])[address] [place], [place] [address]Pvnlopct [Moles/Vol]94 mmol/ZOzn14-699QvctwqyjwrAvita Health System Bucyrus HospitalComment on above:Performed By: #### [id number] ####[facility] ([facility])[address] [place], [place] [address]PQ2 [Moles/Vol]35 mmol/OLyhk72-05 [facility] HospitalComment on above:Performed By: #### [id number] ####[facility] ([facility])[address] [place], [place] [address]Qxqkmrldce [Mass/Vol]1.21 mg/dLNormal0.70-1.30UnAv[facility] Health System [facility] HospitalComment on above:Performed By: #### [id number] ####[facility] ([facility])[address] [place], [place] [address]GBPHKDUTYR FILTRATION RATE ML/MIN/1.73 SQ M.RIQDFVYWN48.8 mL/min/1.73m*2Normal>60.0UnAv[facility] Health [facility] HospitalComment on above: Result Comment: [facility]???s estimated glomerular filtration rate (eGFR) will [...] anyone group of individuals.Performed By: #### [id number] ####[facility] ([facility])[address], [place] [address]Mgnqqlr [Mass/Vol]113 mg/zJZfle72-900NlfqbyiyqxAvita Health System Bucyrus HospitalComment on above:Performed By: #### [id number] ####[facility] ([facility])[address] [place], [place] [address]Owwhhnkhc [Moles/Vol]3.8 mmol/L Normal3.5-5.1UnAv[facility] Health System [facility] HospitalComment on above:Performed By: #### [id number] ####[facility] ([facility])[address] [place] [address] Sodium [Moles/Vol]136 mmol/NJbddnl042-033FucxkecwaaAvita Health System [facility] Hospital Comment on above:Performed By: #### [id number] ####[facility] ([facility])[address] [place], [place] [address]Hnzf nitrogen [Mass/Vol]13 mg/dLNormal7-25 [facility] HospitalComment on above:Performed By: #### [id number] ####[facility] ([facility])[address] [place], [place] [address]TJJN NITROGEN/CREATININE (MASS RATIO) IN SER/PLAS10.7NormalUniversSelect Medical OhioHealth Rehabilitation HospitalComment on above:Performed By: #### [id number] ####[facility] ([facility])[address] [place], [place] [address]BSL WITH AUTO DIFFERENTIALon 96-32-7296Ydyluuaty (Bld) [#/Vol]0.01 10*3/uLNormal0.00-0.20UnAvita Health System [facility] HospitalComment on above:Performed By: #### [id number] ####[facility] ([facility])[address] [place] [address]Zvkajixpk/100 WBC (Bld)0.1 %Normal 0.0-1.0UnAvita Health System Bu[facility] HospitalComment on above:Performed By: #### [id number] ####[facility] ([facility])[address] [place] [address] Eosinophils (Bld) [#/Vol]0.00 10*3/uLNormal0.00-0.50UnAvita Health System [facility] HospitalComment on above:Performed By: #### [id number] ####[facility] ([facility])[address] [place] [address]Kvnevcgbzow/100 WBC (Bld)0.0 %Normal 0.0-6.0UnAv[facility] Health System [facility] HospitalComment on above:Performed By: #### [id number] ####[facility] ([facility])[address] [place] [address] Erythrocyte distribution width (RBC) [Ratio]14.7 %Zljgay07.5-15.0UnAv[facility] Health System Bu[facility] HospitalComment on above:Performed By: #### [id number] ####[facility] ([facility])[address], [place] [address]HNODDNYJJYC MEAN CORPUSCULAR HEMOGLOBIN CONCENTRATION (G/DL) BY JJYKGMOBZ21.3 g/gNZrbjis91.0-35.0 [facility] HospitalComment on above:Performed By: #### [id number] ####[facility] ([facility])[address] [place], [place] [address]Tjyyklqbsh (Bld) [Volume fraction]25.1 %Low39.0-50.0UnAvita Health System Bu[facility]rus HospitalComment on above:Performed By: #### [id number] ####[facility] ([facility])[address] [place], [place] [address]Cjfdghrosw (Bld) [Mass/Vol]8.6 g/dLLow13.0-17.0UnAvita Health System [facility] HospitalComment on above:Performed By: #### [id number] ####[facility] ([facility])[address] [place] [address]Nrfkyrgi granulocytes (Bld) [#/Vol]0.07 10*3/uLNormal0.00-0.20Un[facility] Comment on above:Performed By: #### [id number] ####[facility] ([facility])[address] [facility] [place], [place] [address]Aefnpnfo granulocytes/100 WBC (Bld)0.9 %Normal 0.0-1.0UnAvita Health System Bu[facility] HospitalComment on above:Performed By: #### [id number] ####[facility] ([facility])[address] [place] [address] Lymphocytes (Bld) [#/Vol]0.50 10*3/uLLow1.20-4.00UnAv[facility] HospitalComment on above:Performed By: #### [id number] ####[facility] ([facility])[address] [place], [place] [address]Zmdqaljnher/100 WBC (Bld)6.8 %Low 20.0-45.0UnAv[facility] Health System [facility] HospitalComment on above:Performed By: #### [id number] ####[facility] ([facility])[address] [facility] [place] [facility] [address]BVY (RBC) [Entitic mass]32.2 hkKrxrtk91.0-33.0Un[facility] Comment on above:Performed By: #### [id number] ####[facility], [place] [address]BLL (RBC) [Entitic vol]94.0 jZWssvms07.0-98.0 [facility] HospitalComment on above:Performed By: #### [id number] ####[facility] ([facility] [place] [address]Jseihmcvv (Bld) [#/Vol]0.91 10*3/uLNormal0.10-1.00UnAv[facility] Health System [facility] HospitalComment on above:Performed By: #### [id number] ####[facility] ([facility])[address] [place] [address]Xwppsokko/100 WBC (Bld)12.3 %High5.0-12.0UnAv[facility] Health System [facility] HospitalComment on above:Performed By: #### [id number] ####[facility] ([facility])[address] [place] [address]Irvvyvyuoxg (Bld) [#/Vol]5.90 10*3/uL Normal1.60-7.60UnAv[facility] Health System [facility] HospitalComment on above:Performed By: #### [id number] ####[facility] ([facility])[address] [place] [address] Neutrophils/100 WBC (Bld)79.9 %High40.0-72.0Un[facility] Comment on above:Performed By: #### [id number] ####[facility] ([facility])[address] [place] [address]SWOU (PER 100 WBCS) BY AUTOMATED COUNT1.1 %High0 [facility] HospitalComment on above:Performed By: #### [id number] ####[facility] ([facility])[address] [place] [address]OXALOKEMJ (10*3/UL) IN BLOOD AUTOMATED [id number] 10*3/lXEodwfe868-233JcbfvsoywgAvita Health System Bucyrus HospitalComment on above:Performed By: #### [id number] ####[facility] ([facility])[address] [place] [address]NRB (Bld) [#/Vol]2.67 10*6/uLLow 4.20-5.70UnAv[facility] Health System [facility] HospitalComment on above:Performed By: #### [id number] ####[facility] ([facility])[address] [place] [address]YCN (Bld) [#/Vol]7.39 10*3/uLNormal4.00-10.60Un[facility] Comment on above:Performed By: #### [id number] ####[facility] ([facility])[address] [place] [address]RADYZPGVTBHAD METABOLIC PANELon 21-76-5956Sxaymtd [Mass/Vol]3.4 g/dLLow3.5-5.7UnAv[facility] Health System [facility] HospitalComment on above: Performed By: #### [id number] ####[facility] ([facility])[address] [place] [address]QQK [Catalytic activity/Vol]65 U/HOghkvq85-768RnyqqenffoAvita Health System Bucyrus HospitalComment on above:Performed By: #### [id number] ####[facility] ([facility])[address] [place] [address]QHK [Catalytic activity/Vol]182 U/L High7-52UnAvita Health System [facility] HospitalComment on above:Performed By: #### [id number] ####[facility] ([facility])[address] [place] [address]Uhamn gap [Moles/Vol]10 mmol/LNormal7-20UnAv[facility] HospitalComment on above:Performed By: #### [id number] ####[facility] ([facility])[address] [place] [address]OQY [Catalytic activity/Vol]86 U/VXsep60-03BprwzaulepAvita Health System Bucyrus HospitalComment on above:Performed By: #### [id number] ####[facility] ([facility])[address] [place], [place] [address]Qmoxomsmv [Mass/Vol]0.9 mg/dL Normal0.3-1.0UnAvita Health System [facility] HospitalComment on above:Performed By: #### [id number] ####[facility] ([facility])[address] [place] [address] Calcium [Mass/Vol]7.9 mg/dLLow8.6-10.3UnAv[facility] HospitalComment on above:Performed By: #### [id number] ####[facility] ([facility])[address] [place] [address]Tvzrvdij [Moles/Vol]94 mmol/FReg34-694NklozafhltAvita Health System Bucyrus HospitalComment on above:Performed By: #### [id number] ####[facility] ([facility])[address] [place] [address]GT7 [Moles/Vol]35 mmol/MGrwk99-01 [facility] HospitalComment on above:Performed By: #### [id number] ####[facility] ([facility])[address] [place] [place] [address]Jgrrezgezt [Mass/Vol]1.04 mg/dLNormal0.70-1.30UnAvita [facility] HospitalComment on above:Performed By: #### [id number] ####[facility] ([facility])[address] [place] [address]QLSOKMJRPD FILTRATION RATE ML/MIN/1.73 SQ M.WOJVZNNWO77.7 mL/min/1.73m*2Normal>60.0UnAvita Health System Bu[facility] HospitalComment on above: Result Comment: [facility]???s estimated glomerular filtration rate (eGFR) will [...] anyone group of individuals.Performed By: #### [id number] ####[facility] ([facility])[address] [place] [address]Zeustmk [Mass/Vol]115 mg/zVCcfo59-283ZabpgbqupaAvita Health System Bucyrus HospitalComment on above:Performed By: #### [id number] ####[facility] ([facility])[address] [place], [place] [address]Kikxmwhsu [Moles/Vol]3.7 mmol/L Normal3.5-5.1UnAvita Health System [facility] HospitalComment on above:Performed By: #### [id number] ####[facility] ([facility])[address] [place] [address] Protein [Mass/Vol]5.9 g/dLLow6.0-8.3UnAv[facility] HospitalComment on above:Performed By: #### [id number] ####[facility] ([facility])[address] [place], [place] [address]Aowyzm [Moles/Vol]135 mmol/TGqw389-762EbhozdadsiAvita Health System Bucyrus HospitalComment on above:Performed By: #### [id number] ####[facility] ([facility])[address] [place], [place] [address]Dthm nitrogen [Mass/Vol]12 mg/dLNormal 7-25UnAvita [facility] HospitalComment on above:Performed By: #### [id number] ####[facility] ([facility])[address] [place], [place] [address]CCJA NITROGEN/CREATININE (MASS RATIO) IN SER/PLAS11.5NormalUniversSelect Medical OhioHealth Rehabilitation HospitalComment on above:Performed By: #### [id number] ####[facility] ([facility])[address] [place] [place] [address]XHUHOYWYLby 26-14-3398Tjzlxqrxk [Mass/Vol]1.9 mg/dLNormal1.9-2.7UnAvita Health System Bu[facility] HospitalComment on above:Performed By: #### [id number] ####[facility] ([facility])[address] [place], [place] [address]Foufobuhk [Mass/Vol]2.0 mg/dLNormal1.9-2.7UnAvita [facility] Bu[facility] HospitalComment on above:Performed By: #### [id number] ####[facility] ([facility])[address] [place], [place] [address]Tmntydzdt [Mass/Vol]2.1 mg/dLNormal1.9-2.7UnAv[facility] HospitalComment on above:Performed By: #### [id number] ####[facility] ([facility])[address] [place] [address] PHOSPHORUSon 14-31-6957Cvnpkgrqv [Mass/Vol]2.4 mg/dLLow2.5-5.0UnAvita Health System Bucyrus HospitalComment on above:Performed By: #### [id number] ####[facility] ([facility])[address] [place], [place] [address]Jlkyeakfe [Mass/Vol]2.6 mg/dLNormal2.5-5.0UnAv[facility] Health System Bucyrus HospitalComment on above:Performed By: #### [id number] ####[facility] ([facility])[address] [place] [address] Magnesium [Mass/Vol]2.7 mg/dLNormal2.5-5.0Un[facility] Comment on above:Performed By: #### [id number] ####[facility] ([facility])[address] [place], [place] [id number] [id number] patient is Moderately Unstable - Medium risk of patient condition declining or worsening The patient's goals for the shift include comfort The clinical goals for the shift include VSSNormalUniversmercy health lor[facility] Surgical HospitalBASIC METABOLIC PANELon [id number] gap [Moles/Vol]11 mmol/LNormal7-20 [facility] HospitalComment on above:Performed By: #### [id number] ####[facility] ([facility])[address] [place], [place] [address]Xoysqda [Mass/Vol]7.9 mg/dLLow8.6-10.3UnAv[facility] Health System Bucyrus HospitalComment on above:Performed By: #### [id number] ####[facility] ([facility] [place], [place] [address]Zasgoozr [Moles/Vol]94 mmol/YXbw27-934EdcnrbphcgAvita Health System Bucyrus HospitalComment on above:Performed By: #### [id number] ####[facility] ([facility])[address] [place] [address]JK1 [Moles/Vol]34 mmol/IEgyc43-98 [facility] HospitalComment on above:Performed By: #### [id number] ####[facility] ([facility] [place] [address]Falxbhrexv [Mass/Vol]1.19 mg/dLNormal0.70-1.30UnAvita Health System Bucyrus HospitalComment on above:Performed By: #### [id number] ####[facility] ([facility])[address] [place], [place] [address]UNLFCCDFTN FILTRATION RATE ML/MIN/1.73 SQ M.VDZJTIZXH96.1 mL/min/1.73m*2Normal>60.0UnAv[facility] Health System Bucyrus HospitalComment on above: Result Comment: [facility]???s estimated glomerular filtration rate (eGFR) will [...] anyone group of individuals.Performed By: #### [id number] ####[facility] ([facility] [place] [address]Zvrmgxq [Mass/Vol]135 mg/bKBflh91-904PrjvcbkmbgAvita Health System Bucyrus HospitalComment on above:Performed By: #### [id number] ####[facility] ([facility])[address] [place] [address]Gaviudbmp [Moles/Vol]3.5 mmol/L Normal3.5-5.1UnAvita Health System Bucyrus HospitalComment on above:Performed By: #### [id number] ####[facility] ([facility])[address] [place] [address] Sodium [Moles/Vol]135 mmol/GNnr299-534QlqpcekhymAvita Health System Bucyrus HospitalComment on above:Performed By: #### [id number] ####[facility] ([facility])[address] [place], [place] [address]Ikbo nitrogen [Mass/Vol]14 mg/dLNormal7-25UnAvita Health System Bucyrus HospitalComment on above:Performed By: #### [id number] ####[facility] ([facility] [place], [place] [address]LPDA NITROGEN/CREATININE (MASS RATIO) IN SER/PLAS11.8NormalUniversSelect Medical OhioHealth Rehabilitation HospitalComment on above: Performed By: #### [id number] ####[facility] ([facility] [place], [place] [address]Zbsih gap [Moles/Vol]10 mmol/LNormal7-20UnAvita Health System Bucyrus HospitalComment on above:Performed By: #### [id number] ####[facility] (BEAKER)[address] [place], [place] [address]Jokhwne [Mass/Vol]7.7 mg/dLLow8.6-10.3 [facility] HospitalComment on above:Performed By: #### [id number] ####[facility] (BE[facility])[address] [place], [place] [address]Rjjqbntc [Moles/Vol]94 mmol/YVlw04-917JerkjctzsbAvita Health System Bucyrus HospitalComment on above:Performed By: #### [id number] ####[facility] (BEAKER)[address] [place], [place] [address]TV3 [Moles/Vol]34 mmol/GJbjl21-13TduolyrvwsAvita Health System Bucyrus HospitalComment on above:Performed By: #### [id number] ####[facility] (BEAKER)[address] [place], [place] [address]Sylojakyif [Mass/Vol]1.22 mg/dLNormal 0.70-1.30UnAvita Health System Bucyrus HospitalComment on above:Performed By: #### [id number] ####[facility] (BEAKER)[address] [place], [place] [address]GONNIQXAEJ FILTRATION RATE ML/MIN/1.73 SQ M.OAKAEAXWT28.2 mL/min/1.73m*2Normal>60.0 [facility] HospitalComment on above:Result Comment: [facility]???s estimated glomerular filtration rate (eG FR) [...] group of individuals. Performed By: #### [id number] ####[facility] ([facility])[address] [place], [place] [address]Nstdguq [Mass/Vol]141 mg/jYDjie12-248BbwktnkagnAvita Health System Bucyrus HospitalComment on above:Performed By: #### [id number] ####[facility] ([facility])[address] [place], [place] [address]Eqtzkjtjq [Moles/Vol]3.7 mmol/LNormal 3.5-5.1UnAvita Health System Bucyrus HospitalComment on above:Performed By: #### [id number] ####[facility] ([facility])[address] [place], [place] [address]Pvravk [Moles/Vol]134 mmol/QMld456-348VncndpuvguAvita Health System Bucyrus HospitalComment on above:Performed By: #### [id number] ####[facility] ([facility])[address] [place], [place] [address]Tjlu nitrogen [Mass/Vol]15 mg/dLNormal7-25UnAvita Health System Bucyrus HospitalComment on above:Performed By: #### [id number] ####[facility] ([facility])[address] [place], [place] [address]QCMO NITROGEN/CREATININE (MASS RATIO) IN SER/PLAS12.3NormalUniversSelect Medical OhioHealth Rehabilitation HospitalComment on above: Performed By: #### [id number] ####[facility] ([facility])[address] [place], [place] [address]Ishsk gap [Moles/Vol]8 mmol/LNormal7-20UnAvita Health System Bucyrus HospitalComment on above:Performed By: #### [id number] ####[facility] ([facility])[address] [place], [place] [address]Vcbwuen [Mass/Vol]7.6 mg/dLLow8.6-10.3 [facility] HospitalComment on above:Performed By: #### [id number] ####[facility] ([facility])[address] [place], [place] [address]Ihiktkak [Moles/Vol]95 mmol/IYap14-950CwtgshraleAvita Health System Bucyrus HospitalComment on above:Performed By: #### [id number] ####[facility] ([facility])[address] [place], [place] [address]QO6 [Moles/Vol]35 mmol/ZWqzn62-30IyucpwkujhAvita Health System Bucyrus HospitalComment on above:Performed By: #### [id number] ####[facility] ([facility])[address] [place], [place] [address]Ccrwkjampv [Mass/Vol]1.27 mg/dLNormal 0.70-1.30UnAvita Health System Bucyrus HospitalComment on above:Performed By: #### [id number] ####[facility] ([facility])[address] [place], [place] [address]DQZEOWEENQ FILTRATION RATE ML/MIN/1.73 SQ M.UQIEVLUDQ00.2 mL/min/1.73m*2Normal>60.0 [facility] HospitalComment on above:Result Comment: [facility]???s estimated glomerular filtration rate (eG FR) [...] group of individuals. Performed By: #### [id number] ####[facility] (BEAKER)[address] [place], [place] [address]Spertpw [Mass/Vol]133 mg/hVGyep48-868VbfwvygotsAvita Health System Bucyrus HospitalComment on above:Performed By: #### [id number] ####[facility] ([facility])[address] [place], [place] [address]Wwulfilhb [Moles/Vol]3.8 mmol/LNormal 3.5-5.1UnAvita Health System Bucyrus HospitalComment on above:Performed By: #### [id number] ####[facility] ([facility])[address] [place], [place] [address]Blzfbs [Moles/Vol]134 mmol/BDyi602-249LrbyxahapjAvita Health System Bucyrus HospitalComment on above:Performed By: #### [id number] ####[facility] ([facility])[address] [place], [place] [address]Ujoj nitrogen [Mass/Vol]16 mg/dLNormal7-25UnAvita Health System [facility] HospitalComment on above:Performed By: #### [id number] ####[facility] ([facility])[address] [place], [place] [address]HFCA NITROGEN/CREATININE (MASS RATIO) IN SER/PLAS12.6NormalUniversSelect Medical OhioHealth Rehabilitation HospitalComment on above: Performed By: #### [id number] ####[facility] (BEAKER)[address] [place], [place] [address]Mmglq gap [Moles/Vol]9 mmol/LNormal7-20UnAv[facility] Health System [facility] HospitalComment on above:Performed By: #### [id number] ####[facility] ([facility])[address] [place], [place] [address]Hxpkiqr [Mass/Vol]8.0 mg/dLLow8.6-10.3 [facility] HospitalComment on above:Performed By: #### [id number] ####[facility] ([facility])[address] [place], [place] [address]Bblplqpe [Moles/Vol]95 mmol/CNji26-256LrycibeqahAvita Health System Bucyrus HospitalComment on above:Performed By: #### [id number] ####[facility] ([facility])[address] [place] [address]JN2 [Moles/Vol]35 mmol/ZZxsf18-19AxaaruhargAvita Health System Bucyrus HospitalComment on above:Performed By: #### [id number] ####[facility] ([facility])[address] [place] [address]Qvyonkfydc [Mass/Vol]1.29 mg/dLNormal 0.70-1.30UnAvita Health System Bu[facility]rus HospitalComment on above:Performed By: #### [id number] ####[facility] ([facility])[address] [place] [address]EQOVDIAQOO FILTRATION RATE ML/MIN/1.73 SQ M.GAOKRSOIL83.0 mL/min/1.73m*2Low>60.0UnAvita Health System Bucyrus HospitalComment on above:Result Comment: [facility]???s estimated glomerular filtration rate (eGFR) will [...] group of individuals. Performed By: #### [id number] ####[facility] ([facility])[address] [place] [address]Tbnslns [Mass/Vol]95 mg/qKDhvgsd50-810BoaspglokeAvita Health System Bucyrus HospitalComment on above:Performed By: #### [id number] ####[facility] ([facility])[address] [place] [address]Nowtdziur [Moles/Vol]3.7 mmol/LNormal 3.5-5.1UnAvita Health System Bu[facility] HospitalComment on above:Performed By: #### [id number] ####[facility] ([facility])[address] [place], [place] [address]Tdydfj [Moles/Vol]135 mmol/XFtv378-644HxrbqkpmgjAvita Health System Bucyrus HospitalComment on above:Performed By: #### [id number] ####[facility] ([facility])[address] [place], [place] [address]Xzib nitrogen [Mass/Vol]16 mg/dLNormal7-25UnAv[facility] Health [facility] HospitalComment on above:Performed By: #### [id number] ####[facility] ([facility])[address] [place], [place] [address]GGKA NITROGEN/CREATININE (MASS RATIO) IN SER/PLAS12.4NormalUniversSelect Medical OhioHealth Rehabilitation HospitalComment on above: Performed By: #### [id number] ####[facility] ([facility])[address] [place], [place] [address]Sfgjx gap [Moles/Vol]10 mmol/LNormal7-20UnAv[facility] HospitalComment on above:Performed By: #### [id number] ####[facility] ([facility])[address] [place], [place] [address]Ahglclx [Mass/Vol]7.8 mg/dLLow8.6-10.3 [facility] HospitalComment on above:Performed By: #### [id number] ####[facility] ([facility])[address] [place], [place] [address]Kwlyfoty [Moles/Vol]95 mmol/QKfd82-262RjovlshmvhAvita Health System Bucyrus HospitalComment on above:Performed By: #### [id number] ####[facility] ([facility])[address] [place], [place] [address]PD2 [Moles/Vol]33 mmol/KNkjj83-75RbxzpsmyehAvita Health System Bucyrus HospitalComment on above:Performed By: #### [id number] ####[facility] ([facility])[address] [place], [place] [address]Bfnfzgfbtr [Mass/Vol]1.32 mg/dLHigh 0.70-1.30UnAvita Health System Bu[facility] HospitalComment on above:Performed By: #### [id number] ####[facility] ([facility])[address] [place] [address]MCWMSYELET FILTRATION RATE ML/MIN/1.73 SQ M.JCIRLRZGH59.4 mL/min/1.73m*2Low>60.0UnAvita Health System Bucyrus HospitalComment on above:Result Comment: [facility]???s estimated glomerular filtration rate (eGFR) will [...] group of individuals. Performed By: #### [id number] ####[facility] ([facility])[address] [place] [address]Qrtlahs [Mass/Vol]103 mg/hWMbwf47-728IvmnsdvdziAvita Health System Bucyrus HospitalComment on above:Performed By: #### [id number] ####[facility] ([facility])[address] [place] [address]Ugexuujuz [Moles/Vol]3.6 mmol/LNormal 3.5-5.1UnAvita Health System Bu[facility] HospitalComment on above:Performed By: #### [id number] ####[facility] ([facility])[address] [place], [place] [address]Nnyvfh [Moles/Vol]134 mmol/DCuc695-905UdbnhqvbzyAvita Health System Bucyrus HospitalComment on above:Performed By: #### [id number] ####[facility] ([facility])[address] [place], [place] [address]Uwqs nitrogen [Mass/Vol]18 mg/dLNormal7-25UnAv[facility] HospitalComment on above:Performed By: #### [id number] ####[facility] ([facility])[address] [place], [place] [address]BKGO NITROGEN/CREATININE (MASS RATIO) IN SER/PLAS13.6NormalUniversSelect Medical OhioHealth Rehabilitation HospitalComment on above: Performed By: #### [id number] ####[facility] ([facility])[address] [place] [address]WTX WITH AUTO DIFFERENTIALon 53-74-6649Fvywzqozx (Bld) [#/Vol]0.01 10*3/uLNormal0.00-0.20UnAvita Health System Bucyrus HospitalComment on above: Performed By: #### [id number] ####[facility] ([facility])[address] [place] [address]Wtempyruk/100 WBC (Bld)0.1 %Normal0.0-1.0UnAvita Health System Bucyrus HospitalComment on above:Performed By: #### [id number] ####[facility] ([facility])[address] [place], [place] [address]Jpslomnhyug (Bld) [#/Vol]0.01 10*3/uL Normal0.00-0.50UnAvita Health System Bu[facility]rus HospitalComment on above:Performed By: #### [id number] ####[facility] ([facility])[address] [place] [address] Eosinophils/100 WBC (Bld)0.1 %Normal0.0-6.0Un[facility] Comment on above:Performed By: #### [id number] ####[facility] ([facility])[address] [place], [place] [address]Tzhateaqvmb distribution width (RBC) [Ratio]14.7 % Lqupsq81.5-15.0UnAvita Health System Bucyrus HospitalComment on above:Performed By: #### [id number] ####[facility] ([facility])[address] [place] [address] ERYTHROCYTE MEAN CORPUSCULAR HEMOGLOBIN CONCENTRATION (G/DL) BY LYOOWVRZE84.3 g/pFFljpmu61.0-35.0UnAvita Health System Bucyrus HospitalComment on above:Performed By: #### [id number] ####[facility] ([facility])[address] [place], [place] [address]Bxjzkjbkip (Bld) [Volume fraction]23.9 %Low39.0-50.0UnAvita Health System Bu[facility]rus HospitalComment on above:Performed By: #### [id number] ####[facility] (BEAKER)[address] [place] [address]Yltdfmiuwq (Bld) [Mass/Vol]8.2 g/dLLow 13.0-17.0UnAvita Health System Bu[facility]rus HospitalComment on above:Performed By: #### [id number] ####[facility] ([facility] [place] [address]Bnbidgiw granulocytes (Bld) [#/Vol]0.05 10*3/uLNormal0.00-0.20UnAvita Health System Bu[facility]rus HospitalComment on above:Performed By: #### [id number] ####[facility] ([facility])[address] [place] [address]Zkbajuhn granulocytes/100 WBC (Bld)0.6 %Normal0.0-1.0UnAvita Health System Bu[facility]rus HospitalComment on above:Performed By: #### [id number] ####[facility] (AKER)[address] [place] [address] Lymphocytes (Bld) [#/Vol]0.68 10*3/uLLow1.20-4.00UnAv[facility] Health System Bu[facility] HospitalComment on above:Performed By: #### [id number] ####[facility] ([facility])[address] [place] [address]Dpfdvxusjxb/100 WBC (Bld)7.8 %Low 20.0-45.0UnAvita Health System Bu[facility]rus HospitalComment on above:Performed By: #### [id number] ####[facility] ([facility] [place] [address]XQS (RBC) [Entitic mass]31.8 imMqgeog68.0-33.0Un[facility] Comment on above:Performed By: #### [id number] ####[facility] ([facility]ER)[address] [place], [place] [address]VRX (RBC) [Entitic vol]92.6 gTLbfzgg78.0-98.0 [facility] HospitalComment on above:Performed By: #### [id number] ####[facility] (BEAKER)[address] [place] [address]Usrjtxnmr (Bld) [#/Vol]0.87 10*3/uLNormal0.10-1.00UnAvita Health System Bu[facility] HospitalComment on above:Performed By: #### [id number] ####[facility] ([facility])[address] [place] [address]Txtdgpbuq/100 WBC (Bld)9.9 %Normal5.0-12.0F[facility] HospitalComment on above:Performed By: #### [id number] ####[facility] ([facility])[address] [place] [address]Hwzsmnjgtkh (Bld) [#/Vol] 7.15 10*3/uLNormal1.60-7.60UnAv[facility] Health System Bu[facility] HospitalComment on above: Performed By: #### [id number] ####[facility] ([facility])[address] [place] [address]Rgptdaefmel/100 WBC (Bld)81.5 %High40.0-72.0UnAvita Health System Bu[facility] HospitalComment on above:Performed By: #### [id number] ####[facility] ([facility])[address] [place] [address]HTTK (PER 100 WBCS) BY AUTOMATED COUNT1.1 %Mzwf0TatjmyggkxAvita Health System Bucyrus HospitalComment on above: Performed By: #### [id number] ####[facility] ([facility])[address] [place] [address]VANUKNFVC (10*3/UL) IN BLOOD AUTOMATED [id number] 10*3/uLLow 150-400UnAvita Health System Bu[facility] HospitalComment on above:Performed By: #### [id number] ####[facility] ([facility] [place] [address]RDV (Bld) [#/Vol]2.58 10*6/uLLow4.20-5.70UnAvita Health System Bu[facility] HospitalComment on above:Performed By: #### [id number] ####[facility] ([facility])[address] [place] [address]MTM (Bld) [#/Vol]8.77 10*3/uLNormal4.00-10.60UnAvita Health System Bu[facility] HospitalComment on above:Performed By: #### [id number] ####[facility] ([facility])[address] [place] [address]MQXIJEUEDVUBT METABOLIC PANELon 18-77-6689Enhhraz [Mass/Vol]3.2 g/dLLow3.5-5.7UnAvita Health System Bucy[facility] HospitalComment on above:Performed By: #### [id number] ####[facility] ([facility])[address] [place] [address]NST [Catalytic activity/Vol]54 U/L Byxbon53-863PhclpdtqphAvita Health System Bucyrus HospitalComment on above:Performed By: #### [id number] ####[facility] ([facility])[address] [place] [address]IHD [Catalytic activity/Vol]211 U/LHigh7-52Un[facility] Comment on above:Performed By: #### [id number] ####[facility] ([facility])[address] [place] [address]Jpfab gap [Moles/Vol]9 mmol/LNormal7-20UnAv[facility] HospitalComment on above:Performed By: #### [id number] ####[facility] ([facility])[address] [place], [place] [address]NWJ [Catalytic activity/Vol]119 U/JUray16-28HvhhofsiqsAvita Health System Bucyrus HospitalComment on above:Performed By: #### [id number] ####[facility] ([facility])[address] [place], [place] [address]Toztlebkf [Mass/Vol]0.8 mg/dLNormal0.3-1.0UnAvita Health System Bu[facility] HospitalComment on above:Performed By: #### [id number] ####[facility] ([facility])[address] [address]Qrevvfj [Mass/Vol]8.0 mg/dLLow 8.6-10.3UnAvita Health System [facility] HospitalComment on above:Performed By: #### [id number] ####[facility] ([facility])[address] [place] [address]Jxvrhvdp [Moles/Vol]94 mmol/QTdx75-200CokwjtlenfAvita Health System Bucyrus HospitalComment on above:Performed By: #### [id number] ####[facility] ([facility])[address] [place], [place] [address]TT6 [Moles/Vol]35 mmol/ZKxnw79-46KgabbxkejcAvita Health System Bucyrus HospitalComment on above:Performed By: #### [id number] ####[facility] ([facility])[address] [place], [place] [address]Bqtmwwfipj [Mass/Vol]1.21 mg/dLNormal 0.70-1.30UnAvita Health System Bu[facility] HospitalComment on above:Performed By: #### [id number] ####[facility] ([facility])[address] [place], [place] [address]RXHTRPFNGK FILTRATION RATE ML/MIN/1.73 SQ M.FBCURLBDK53.8 mL/min/1.73m*2Normal>60.0 [facility] HospitalComment on above:Result Comment: [facility]???s estimated glomerular filtration rate (eG FR) [...] group of individuals. Performed By: #### [id number] ####[facility] ([facility])[address] [place], [place] [address]Rsozvec [Mass/Vol]100 mg/gIFftgrs68-107BzdvuwbkcsAvita Health System Bucyrus HospitalComment on above:Performed By: #### [id number] ####[facility] ([facility])[address] [place], [place] [address]Npfurwmki [Moles/Vol]3.5 mmol/LNormal 3.5-5.1UnAvita Health System Bucyrus HospitalComment on above:Performed By: #### [id number] ####[facility] ([facility])[address] [place], [place] [address]Efaejda [Mass/Vol]5.6 g/dLLow6.0-8.3UnAvita Health System Bu[facility]rus HospitalComment on above: Performed By: #### [id number] ####[facility] ([facility])[address] [place], [place] [address]Kryjod [Moles/Vol]134 mmol/IHuy806-581FzudvvwenbAvita Health System Bucyrus HospitalComment on above:Performed By: #### [id number] ####[facility] ([facility])[address] [place], [place] [address]Stjo nitrogen [Mass/Vol]16 mg/dLNormal 7-25UnAvita Health System Bucyrus HospitalComment on above:Performed By: #### [id number] ####[facility] ([facility])[address] [place], [place] [address]KTJL NITROGEN/CREATININE (MASS RATIO) IN SER/PLAS13.2NormalUnAvita Health System Bucyrus HospitalComment on above:Performed By: #### [id number] ####[facility] ([facility])[address] [place], [place] [address]EQQBUWKcf 14-67-6927EGGJAADByijeo Flower HospitalMAGNESIUMon 37-65-3646Wzuqmiogn [Mass/Vol]1.8 mg/dLLow1.9-2.7UnAvita Health System Bucyrus HospitalComment on above:Performed By: #### [id number] ####[facility] ([facility])[address] [place] [address] Magnesium [Mass/Vol]1.9 mg/dLNormal1.9-2.7Un[facility] Comment on above:Performed By: #### [id number] ####[facility] ([facility])[address] [place], [place] [address]Hgpkhydzm [Mass/Vol]1.9 mg/dLNormal1.9-2.7 [facility] HospitalComment on above:Performed By: #### [id number] ####[facility] ([facility])[address] [place], [place] [address]Fcpfhmuvn [Mass/Vol]2.0 mg/dLNormal1.9-2.7Un[facility] HospitalComment on above:Performed By: #### [id number] ####[facility] ([facility])[address] [place], [place] [address]Wlvqvpdey [Mass/Vol]2.0 mg/dLNormal1.9-2.7Un[facility] HospitalComment on above:Performed By: #### [id number] ####[facility] ([facility])[address] [place], [place] [address]Setckufnx [Mass/Vol]2.0 mg/dLNormal1.9-2.7Un[facility] HospitalComment on above:Performed By: #### [id number] ####[facility] ([facility])[address] [place] [address] PHOSPHORUSon [id number] [Mass/Vol]2.2 mg/dLLow2.5-5.0Un[facility] HospitalComment on above:Performed By: #### [id number] ####[facility] ([facility])[address] [place], [place] [address]Ykaaxrtqd [Mass/Vol]2.3 mg/dLLow2.5-5.0Un[facility] HospitalComment on above:Performed By: #### [id number] ####[facility] ([facility] [place] [address] Magnesium [Mass/Vol]1.7 mg/dLLow2.5-5.0Un[facility] Comment on above:Performed By: #### [id number] ####[facility] ([facility])[address] [place], [place] [address]Qkctxjqlb [Mass/Vol]1.8 mg/dLLow2.5-5.0Un[facility] HospitalComment on above:Performed By: #### [id number] ####[facility] ([facility])[address] [place], [place] [address]Sbxeeddtr [Mass/Vol]1.8 mg/dLLow2.5-5.0Un[facility] HospitalComment on above:Performed By: #### [id number] ####[facility] ([facility])[address] [place] [address] Magnesium [Mass/Vol]2.1 mg/dLLow2.5-5.0[facility] Comment on above:Performed By: #### [id number] ####[facility] ([facility])[address] [place], [place] [address]UIAXZNLah [id number] (UMOL/L) IN BCUEQX46 umol/DGuexsz48-45TgdwykiwzsAvita Health System Bucyrus HospitalComment on above:Performed By: #### [id number] ####[facility] ([facility])[address] [place] [address] BASIC METABOLIC PANELon [id number] gap [Moles/Vol]10 mmol/LNormal7-20 [facility] HospitalComment on above:Performed By: #### [id number] ####[facility] ([facility])[address] [place], [place] [address]Vakjljv [Mass/Vol]7.7 mg/dLLow8.6-10.3UnAv[facility] HospitalComment on above:Performed By: #### [id number] ####[facility] ([facility])[address] [place], [place] [address]Wiigvpun [Moles/Vol]95 mmol/DTfu16-429SrvqkkowjxAvita Health System Bucy[facility] HospitalComment on above:Performed By: #### [id number] ####[facility] ([facility] [place] [id number] [Moles/Vol]33 mmol/KWjop12-91 [facility] HospitalComment on above:Performed By: #### [id number] ####[facility] ([facility])[address] [place] [address]Vmujzmlubc [Mass/Vol]1.46 mg/dLHigh0.70-1.30UnAvita Health System Bucyrus HospitalComment on above:Performed By: #### [id number] ####[facility] ([facility])[address] [address]HXTKLQZTKJ FILTRATION RATE ML/MIN/1.73 SQ M.PJZXTBRSZ89.7 mL/min/1.73m*2Low>60.0UnAvita Health System Bucyrus HospitalComment on above:Result Comment: [facility]???s estimated glomerular filtration rate (eGFR) will [...] anyone group of individuals.Performed By: #### [id number] ####[facility] ([facility])[address] [place] [address]Kcodoug [Mass/Vol]114 mg/bZQrjk83-303DsfkmdfestAvita Health System Bucyrus HospitalComment on above:Performed By: #### [id number] ####[facility] ([facility])[address] [address]Zvcgfoins [Moles/Vol]3.6 mmol/L Normal3.5-5.1UnAvita Health System Bucyrus HospitalComment on above:Performed By: #### [id number] ####[facility] ([facility] [place] [address] Sodium [Moles/Vol]134 mmol/VJlo823-307BdrsmzmhswAvita Health System Bucyrus HospitalComment on above:Performed By: #### [id number] ####[facility] ([facility])[address] [place], [place] [address]Nfrv nitrogen [Mass/Vol]20 mg/dLNormal7-25UnAvita Health System Bucyrus HospitalComment on above:Performed By: #### [id number] ####[facility] ([facility])[address] [place], [place] [address]OWMH NITROGEN/CREATININE (MASS RATIO) IN SER/PLAS13.7NormalUniversSelect Medical OhioHealth Rehabilitation HospitalComment on above: Performed By: #### [id number] ####[facility] ([facility])[address] [place], [place] [address]Kpvfb gap [Moles/Vol]12 mmol/LNormal7-20UnAvita Health System Bucyrus HospitalComment on above:Performed By: #### [id number] ####[facility] ([facility])[address] [place], [place] [address]Kkripqo [Mass/Vol]8.0 mg/dLLow8.6-10.3 [facility] HospitalComment on above:Performed By: #### [id number] ####[facility] ([facility])[address] [place], [place] [address]Lipiappq [Moles/Vol]93 mmol/HIgw06-270QfvgxqsfyaAvita Health System Bucyrus HospitalComment on above:Performed By: #### [id number] ####[facility] ([facility])[address] [place], [place] [address]ZQ1 [Moles/Vol]32 mmol/KHrwu54-56TtfwzyskewAvita Health System Bucyrus HospitalComment on above:Performed By: #### [id number] ####[facility] ([facility])[address] [place], [place] [address]Ythzkblfqt [Mass/Vol]1.47 mg/dLHigh 0.70-1.30UnAvita Health System Bucyrus HospitalComment on above:Performed By: #### [id number] ####[facility] ([facility])[address] [place], [place] [address]WEQKZIWNDV FILTRATION RATE ML/MIN/1.73 SQ M.BIEAWLYXW53.3 mL/min/1.73m*2Low>60.0UnAvita Health System Bucyrus HospitalComment on above:Result Comment: [facility]???s estimated glomerular filtration rate (eGFR) will [...] group of individuals. Performed By: #### [id number] ####[facility] ([facility])[address] [facility], [place] [address]Lwqytom [Mass/Vol]113 mg/tXGjwb40-944GxeookjgrqAvita Health System Bucyrus HospitalComment on above:Performed By: #### [id number] ####[facility] ([facility])[address] [facility], [place] [address]Wvnyeggez [Moles/Vol]3.6 mmol/LNormal 3.5-5.1UnAvita Health System Bucyrus HospitalComment on above:Performed By: #### [id number] ####[facility] ([facility])[address] [place], [place] [address]Elfekb [Moles/Vol]133 mmol/IFqy862-076NsxpprsdxkAvita Health System Bucyrus HospitalComment on above:Performed By: #### [id number] ####[facility] ([facility])[address] [facility] [place] [place] [address]Txmi nitrogen [Mass/Vol]21 mg/dLNormal7-25UnAvita Health System Bu[facility]rus HospitalComment on above:Performed By: #### [id number] ####[facility] ([facility])[address] [facility], [place] [address]ZIEZ NITROGEN/CREATININE (MASS RATIO) IN SER/PLAS14.3NormalUniversSelect Medical OhioHealth Rehabilitation HospitalComment on above: Performed By: #### [id number] ####[facility] ([facility])[address] [place] [address]Hkqbw gap [Moles/Vol]11 mmol/LNormal7-20UnAvita Health System Bucyrus HospitalComment on above:Performed By: #### [id number] ####[facility] ([facility])[address] [place] [address]Sxhhkej [Mass/Vol]8.0 mg/dLLow8.6-10.3 [facility]lower HospitalComment on above:Performed By: #### [id number] ####[facility] ([facility])[address], [place] [address]Gqsjdelu [Moles/Vol]94 mmol/OXak72-396OsahmqqcxrAvita Health System Bucyrus HospitalComment on above:Performed By: #### [id number] ####[facility] ([facility])[address] [place] [address]FA9 [Moles/Vol]32 mmol/UJcuy75-52JrrsugwijyAvita Health System Bucyrus HospitalComment on above:Performed By: #### [id number] ####[facility] ([facility])[address], [place] [address]Ztoecfcdhh [Mass/Vol]1.69 mg/dLHigh 0.70-1.30UnAvita Health System Bu[facility]rus HospitalComment on above:Performed By: #### [id number] ####[facility] ([facility])[address], [place] [address]LMGADBWECM FILTRATION RATE ML/MIN/1.73 SQ M.XKQNZXKSQ23.4 mL/min/1.73m*2Low>60.0UnAvita Health System Bucyrus HospitalComment on above:Result Comment: [facility]???s estimated glomerular filtration rate (eGFR) will [...] group of individuals. Performed By: #### [id number] ####[facility] ([facility])[address] [place], [place] [address]Yaehcxy [Mass/Vol]108 mg/lRTmhr07-959QetfsgmfytAvita Health System Bucyrus HospitalComment on above:Performed By: #### [id number] ####[facility] ([facility])[address] [place], [place] [address]Sxujuetmp [Moles/Vol]3.5 mmol/LNormal 3.5-5.1UnAvita Health System Bu[facility] HospitalComment on above:Performed By: #### [id number] ####[facility] ([facility])[address] [place], [place] [address]Fdrjgt [Moles/Vol]133 mmol/FOhh971-634CfrxpshmhhAvita Health System Bucyrus HospitalComment on above:Performed By: #### [id number] ####[facility] ([facility])[address] [place], [place] [address]Owhk nitrogen [Mass/Vol]23 mg/dLNormal7-25UnAvita Health System Bu[facility] HospitalComment on above:Performed By: #### [id number] ####[facility] ([facility])[address] [place], [place] [address]DUBV NITROGEN/CREATININE (MASS RATIO) IN SER/PLAS13.6NormalUniversSelect Medical OhioHealth Rehabilitation HospitalComment on above: Performed By: #### [id number] ####[facility] ([facility])[address] [place], [place] [address]Frcdh gap [Moles/Vol]10 mmol/LNormal7-20UnAv[facility] Health System Bu[facility] HospitalComment on above:Performed By: #### [id number] ####[facility] ([facility])[address] [place], [place] [address]Geqdeyr [Mass/Vol]7.8 mg/dLLow8.6-10.3 [facility] HospitalComment on above:Performed By: #### [id number] ####[facility] ([facility])[address] [place], [place] [address]Bkofsbxh [Moles/Vol]95 mmol/AAvs95-511EfprdyompgAvita Health System Bucyrus HospitalComment on above:Performed By: #### [id number] ####[facility] ([facility])[address] [place] [address]WX6 [Moles/Vol]32 mmol/LVolt73-34WubagdvsurAvita Health System Bucyrus HospitalComment on above:Performed By: #### [id number] ####[facility] ([facility])[address] [place] [address]Ktfimfugqf [Mass/Vol]1.72 mg/dLHigh 0.70-1.30UnAvita Health System Bu[facility] HospitalComment on above:Performed By: #### [id number] ####[facility] ([facility])[address] [address]XGSBSHNUYV FILTRATION RATE ML/MIN/1.73 SQ M.WHLFIVLHQ13.5 mL/min/1.73m*2Low>60.0UnAvita Health System Bucyrus HospitalComment on above:Result Comment: [facility]???s estimated glomerular filtration rate (eGFR) will [...] group of individuals. Performed By: #### [id number] ####[facility] ([facility])[address] [address]Hcuuqcq [Mass/Vol]108 mg/jLMbmg04-053CkykgfdldxAvita Health System Bucyrus HospitalComment on above:Performed By: #### [id number] ####[facility] ([facility])[address] [place] [address]Manourcoa [Moles/Vol]3.6 mmol/LNormal 3.5-5.1UnAvita Health System Bu[facility] HospitalComment on above:Performed By: #### [id number] ####[facility] ([facility])[address] [place], [place] [address]Wyuiza [Moles/Vol]133 mmol/CMlc235-421LfrvrswtpaAvita Health System Bucyrus HospitalComment on above:Performed By: #### [id number] ####[facility] ([facility])[address] [place], [place] [address]Xdqc nitrogen [Mass/Vol]25 mg/dLNormal7-25UnAvita Health System [facility] HospitalComment on above:Performed By: #### [id number] ####[facility] ([facility])[address] [place], [place] [address]TIUU NITROGEN/CREATININE (MASS RATIO) IN SER/PLAS14.5NormalUniversSelect Medical OhioHealth Rehabilitation HospitalComment on above: Performed By: #### [id number] ####[facility] ([facility])[address] [place], [place] [address]Xumie gap [Moles/Vol]13 mmol/LNormal7-20UnAv[facility] Health [facility] HospitalComment on above:Performed By: #### [id number] ####[facility] ([facility])[address] [place], [place] [address]Uthoyds [Mass/Vol]7.1 mg/dLLow8.6-10.3 [facility] HospitalComment on above:Performed By: #### [id number] ####[facility] ([facility] [place], [place] [address]Zvlvycmo [Moles/Vol]97 mmol/GVwa69-466DxxmhltexaAvita Health System Bucyrus HospitalComment on above:Performed By: #### [id number] ####[facility] ([facility] [place], [place] [address]EX9 [Moles/Vol]26 mmol/GAcuuwc20-24MzjgfvmrffAvita Health System Bucyrus HospitalComment on above:Performed By: #### [id number] ####[facility] ([facility])[address] [place], [place] [address]Qweiokpehg [Mass/Vol]2.17 mg/dLHigh 0.70-1.30UnAvita Health System Bu[facility]rus HospitalComment on above:Performed By: #### [id number] ####[facility] ([facility])[address] [place] [address]IBMWDZMAYY FILTRATION RATE ML/MIN/1.73 SQ M.GUHIFOHRN29.2 mL/min/1.73m*2Low>60.0UnAvita Health System Bucyrus HospitalComment on above:Result Comment: [facility]???s estimated glomerular filtration rate (eGFR) will [...] group of individuals. Performed By: #### [id number] ####[facility] ([facility])[address] [place] [address]Prjirxy [Mass/Vol]111 mg/wNEcjr44-323RnppqinggzAvita Health System Bucyrus HospitalComment on above:Performed By: #### [id number] ####[facility] ([facility])[address], [place] [address]Dumabsvsi [Moles/Vol]3.6 mmol/LNormal 3.5-5.1UnAvita Health System Bu[facility] HospitalComment on above:Performed By: #### [id number] ####[facility] ([facility])[address] [place] [address]Vvnhqd [Moles/Vol]132 mmol/RUxi569-678BmxzuijufjAvita Health System Bucyrus HospitalComment on above:Performed By: #### [id number] ####[facility] ([facility])[address] [place], [place] [address]Mvia nitrogen [Mass/Vol]32 mg/dLHigh7-25UnAv[facility] Health System [facility] HospitalComment on above:Performed By: #### [id number] ####[facility] ([facility])[address] [place], [place] [address]KHPW NITROGEN/CREATININE (MASS RATIO) IN SER/PLAS14.7NormalUniversSelect Medical OhioHealth Rehabilitation HospitalComment on above: Performed By: #### [id number] ####[facility] ([facility])[address] [place] [address]Wdqzr gap [Moles/Vol]13 mmol/LNormal7-20UnAv[facility] Health System [facility] HospitalComment on above:Performed By: #### [id number] ####[facility] ([facility])[address] [address]Lqfrbar [Mass/Vol]7.2 mg/dLLow8.6-10.3 [facility] HospitalComment on above:Performed By: #### [id number] ####[facility] ([facility])[address] [place], [place] [address]Wtxceevf [Moles/Vol]97 mmol/REkp94-333GzsciazzpkAvita Health System Bucyrus HospitalComment on above:Performed By: #### [id number] ####[facility] ([facility])[address] [place] [address]NV0 [Moles/Vol]26 mmol/FZvwsqm61-47OxonlremuxAvita Health System Bucyrus HospitalComment on above:Performed By: #### [id number] ####[facility] ([facility])[address], [place] [address]Frbnmhdkld [Mass/Vol]2.37 mg/dLHigh 0.70-1.30UnAvita Health System Bu[facility] HospitalComment on above:Performed By: #### [id number] ####[facility] ([facility])[address] [place], [place] [address]GSJBNJUNND FILTRATION RATE ML/MIN/1.73 SQ M.OJWSXIVSZ84.9 mL/min/1.73m*2Low>60.0UnAvita Health System Bucyrus HospitalComment on above:Result Comment: [facility]???s estimated glomerular filtration rate (eGFR) will [...] group of individuals. Performed By: #### [id number] ####[facility] ([facility])[address] [place], [place] [address]Cszxqqo [Mass/Vol]108 mg/rPHefd30-849XfujnmekjsAvita Health System Bucyrus HospitalComment on above:Performed By: #### [id number] ####[facility] ([facility])[address] [place], [place] [address]Jhshakhfo [Moles/Vol]3.5 mmol/LNormal 3.5-5.1UnAvita Health System Bu[facility] HospitalComment on above:Performed By: #### [id number] ####[facility] ([facility])[address] [place], [place] [address]Grsgsa [Moles/Vol]132 mmol/YIet824-349CvlvpdpubgAvita Health System Bucyrus HospitalComment on above:Performed By: #### [id number] ####[facility] ([facility])[address] [facility] [place] [address]Upxa nitrogen [Mass/Vol]33 mg/dLHigh7-25UnAv[facility] HospitalComment on above:Performed By: #### [id number] ####[facility] ([facility])[address] [place], [place] [address]PEJB NITROGEN/CREATININE (MASS RATIO) IN SER/PLAS13.9NormalUniversSelect Medical OhioHealth Rehabilitation HospitalComment on above: Performed By: #### [id number] ####[facility] ([facility])[address] [facility] [place] [facility] [address]TBRUG GAS, VENOUSon 26-30-7509OG0 (BldV) [Partial pressure]48 mm[Hg] Wmgswc16-02VhgibpfbztAvita Health System Bucyrus HospitalComment on above:Performed By: #### [id number] ####[facility] RESPIRATORY [id number] [place] [address] [place] HCO3 (Bld) [Moles/Vol]31.9 mmol/LNormalUnAvita Health System [facility] Hospital Comment on above:Performed By: #### [id number] ####[facility] RESPIRATORY [id number] [place] [address] USAOxygen (BldV) [Partial pressure]35 mm[Hg]Normal 35-45UnAvita Health System Bucyrus HospitalComment on above:Performed By: #### [id number] ####[facility] RESPIRATORY [id number] [place] [address] USAOXYGEN SATURATION (%) IN VENOUS BLOOD56.1 %Low65.0-75.0UnAvita Health System Bucyrus HospitalComment on above:Performed By: #### [id number] ####[facility] RESPIRATORY [id number] [place] [address] USAOXYGENATED HEMOGLOBIN, COXUDZ75.6 % NormalUnAvita Health System Bucyrus HospitalComment on above:Performed By: #### [id number] ####[facility] RESPIRATORY [id number] [place] [address] USAPCO2 VENOUS TEMP [id number] ztMxYbmdhw97-65YqhltyqwztAvita Health System Bucyrus HospitalComment on above:Performed By: #### [id number] ####[facility] RESPIRATORY [id number] [place] [address] USAPH OF VENOUS BLOOD7.19Jaor6.31-7.41UnAvita Health System Bucyrus HospitalComment on above:Performed By: #### [id number] ####[facility] RESPIRATORY [id number] [place] [address] USAPH VENOUS TEMP ADJUSTED7.43High 7.31-7.41UnAvita Health System Bucyrus HospitalComment on above:Performed By: #### [id number] ####[facility] RESPIRATORY [id number] [place] [address] USAPO2 VENOUS TEMP KGYDIBZX93 bgUtVcozrn45-57OqvupjaarbAvita Health System Bucyrus HospitalComment on above:Performed By: #### [id number] ####[facility] RESPIRATORY [id number] [place] [address] ZGIQXXWHYCVOCO06.0 ???CNormalUnAvita Health System Bucyrus HospitalComment on above:Performed By: #### [id number] ####[facility] RESPIRATORY [id number] [place] [address] USACBC WITH AUTO DIFFERENTIALon 74-21-2811Tcaolejer (Bld) [#/Vol]0.01 10*3/uLNormal0.00-0.20UnAvita Health System Bucyrus HospitalComment on above:Performed By: #### [id number] ####[facility] ([facility]ER)[address] [place], [place] [address]Guingvraj/100 WBC (Bld)0.1 %Normal 0.0-1.0UnAvita Health System Bucyrus HospitalComment on above:Performed By: #### [id number] ####[facility] ([facility] [place] [address] Eosinophils (Bld) [#/Vol]0.00 10*3/uLNormal0.00-0.50UnAvita Health System Bu[facility] HospitalComment on above:Performed By: #### [id number] ####[facility] ([facility])[address] [place], [place] [address]Iyptpwcjyms/100 WBC (Bld)0.0 %Normal 0.0-6.0UnAvita Health System Bucyrus HospitalComment on above:Performed By: #### [id number] ####[facility] ([facility])[address] [place] [address] Erythrocyte distribution width (RBC) [Ratio]14.5 %Hgfvce13.5-15.0UnAvita Health System Bucyrus HospitalComment on above:Performed By: #### [id number] ####[facility] ([facility] [place], [place] [address]PCEJZOOJRMJ MEAN CORPUSCULAR HEMOGLOBIN CONCENTRATION (G/DL) BY XQVLCVKIJ02.5 g/mFGcyx85.0-35.0 [facility] HospitalComment on above:Performed By: #### [id number] ####[facility] ([facility] [place], [place] [address]Rzdxtlimln (Bld) [Volume fraction]23.4 %Low39.0-50.0UnAvita Health System Bucyrus HospitalComment on above:Performed By: #### [id number] ####[facility] [place] [address]Osamhrebbc (Bld) [Mass/Vol]8.3 g/dLLow13.0-17.0UnAvita Health System Bucyrus HospitalComment on above:Performed By: #### [id number] ####[facility] ([facility])[address] [place] [address]Toimulqe granulocytes (Bld) [#/Vol]0.07 10*3/uLNormal0.00-0.20Un[facility] Comment on above:Performed By: #### [id number] ####[facility] ([facility])[address] [place] [address]Gdvkgrcl granulocytes/100 WBC (Bld)0.7 %Normal 0.0-1.0UnAvita Health System Bucyrus HospitalComment on above:Performed By: #### [id number] ####[facility] ([facility])[address] [place] [place] [address]OPLWGIYM PLATELET FRACTION %5.7 %Normal0.8-6.3UnAvita Health System Bucyrus HospitalComment on above:Performed By: #### [id number] ####[facility] ([facility])[address] [place] [address]Calamozeuvj (Bld) [#/Vol]0.32 10*3/uLLow1.20-4.00 [facility] HospitalComment on above:Performed By: #### [id number] ####[facility] ([facility])[address] [place] [address]Kwzzocwxtxo/100 WBC (Bld)3.3 %Low20.0-45.0UnAvita Health System Bucyrus HospitalComment on above: Performed By: #### [id number] ####[facility] ([facility])[address] [place] [address]DTP (RBC) [Entitic mass]32.0 akLnqwai59.0-33.0UnAvita Health System Bucyrus HospitalComment on above:Performed By: #### [id number] ####[facility] [place] [address]OOI (RBC) [Entitic vol] 90.3 xCSesxbv80.0-98.0UnAvita Health System Bucyrus HospitalComment on above: Performed By: #### [id number] ####[facility] ([facility])[address] [place] [address]Owwnkqmow (Bld) [#/Vol]0.55 10*3/uLNormal0.10-1.00UnAv[facility] Bucy[facility] HospitalComment on above:Performed By: #### [id number] ####[facility] ([facility])[address] [place] [address]Ailxsdhdy/100 WBC (Bld) 5.6 %Normal5.0-12.0[facility] HospitalComment on above:Performed By: #### [id number] ####[facility] ([facility])[address] [place] [address]Wufzwyaopcj (Bld) [#/Vol]8.81 10*3/uLHigh1.60-7.60UnAv[facility] Bu[facility] HospitalComment on above:Performed By: #### [id number] ####[facility] ([facility])[address] [place] [address]Alvpcmphiju/100 WBC (Bld)90.3 %High 40.0-72.0UnAv[facility] Health [facility] Bucy[facility] HospitalComment on above:Performed By: #### [id number] ####[facility] ([facility])[address] [place] [address]NPNX (PER 100 WBCS) BY AUTOMATED COUNT0.3 %Ptsl7MexlouldqzAvita Health System Bucyrus Hospital Comment on above:Performed By: #### [id number] ####[facility] ([facility])[address] [place] [address]HCJOOUMMG (10*3/UL) IN BLOOD AUTOMATED [id number] 10*3/nZKji030-532KomckzcrvvAvita Health System Bucyrus HospitalComment on above:Performed By: #### [id number] ####[facility] ([facility])[address] [place] [address]IUU (Bld) [#/Vol]2.59 10*6/uLLow4.20-5.70UnAv[facility] System Bu[facility] HospitalComment on above:Performed By: #### [id number] ####[facility] ([facility])[address] [address]VMT (Bld) [#/Vol]9.76 10*3/uLNormal 4.00-10.60UnAv[facility] Bu[facility] HospitalComment on above:Performed By: #### [id number] ####[facility] ([facility])[address] [place] [address] COMPREHENSIVE METABOLIC PANELon 21-40-6864Zvlpbzt [Mass/Vol]3.1 g/dLLow3.5-5.7 [facility] HospitalComment on above:Performed By: #### [id number] ####[facility] ([facility])[address] [place] [address]VMT [Catalytic activity/Vol]56 U/BBuveje17-770IvohzyhmycAvita Health System Bucyrus HospitalComment on above:Performed By: #### [id number] ####[facility] ([facility])[address] [place] [address]GUN [Catalytic activity/Vol]267 U/LHigh7-52UnAv[facility] Bu[facility] HospitalComment on above:Performed By: #### [id number] ####[facility] ([facility])[address] [place] [address]Vqorl gap [Moles/Vol]14 mmol/L Normal7-20UnAv[facility] Bucy[facility] HospitalComment on above:Performed By: #### [id number] ####[facility] ([facility])[address], [place] [address]PAE [Catalytic activity/Vol]252 U/IKkbz94-81DpzqordozhAvita Health System [facility]cy[facility] Comment on above:Performed By: #### [id number] ####[facility] ([facility])[address] [address]Aevosfubf [Mass/Vol]0.7 mg/dLNormal0.3-1.0 [facility] HospitalComment on above:Performed By: #### [id number] ####[facility] ([facility])[address] [address]Zruzmhw [Mass/Vol]7.5 mg/dLLow8.6-10.3UnAvita Health System Bucyrus HospitalComment on above:Performed By: #### [id number] ####[facility] ([facility])[address] [place] [address]Bepmcmkl [Moles/Vol]96 mmol/QQuw59-917MksryjmnjvAvita Health System Bucyrus HospitalComment on above:Performed By: #### [id number] ####[facility] ([facility])[address] [place] [address]JH4 [Moles/Vol]26 mmol/YReeuxx97-30 [facility] HospitalComment on above:Performed By: #### [id number] ####[facility] ([facility])[address] [place] [address]Hfptrqwuom [Mass/Vol]2.24 mg/dLHigh0.70-1.30UnAvita Health System Bucyrus HospitalComment on above:Performed By: #### [id number] ####[facility] ([facility])[address] [address]EXEOSXJLBO FILTRATION RATE ML/MIN/1.73 SQ M.FGJRYWQIJ38.0 mL/min/1.73m*2Low>60.0UnAvita Health System Bucyrus HospitalComment on above:Result Comment: [facility]???s estimated glomerular filtration rate (eGFR) will [...] anyone group of individuals.Performed By: #### [id number] ####[facility] ([facility])[address], [place] [address]Mbatwun [Mass/Vol]111 mg/iWTslo09-354IyljvjvocsAvita Health System Bucyrus HospitalComment on above:Performed By: #### [id number] ####[facility] ([facility])[address], [place] [address]Nluxhmsfm [Moles/Vol]3.7 mmol/L Normal3.5-5.1UnAvita Health System Bucyrus HospitalComment on above:Performed By: #### [id number] ####[facility] ([facility])[address] [place] [address] Protein [Mass/Vol]5.5 g/dLLow6.0-8.3UnAvita Health System Bucyrus HospitalComment on above:Performed By: #### [id number] ####[facility] ([facility])[address], [place] [address]Cetddx [Moles/Vol]132 mmol/WPtj169-140PdrxnweynzAvita Health System Bucyrus HospitalComment on above:Performed By: #### [id number] ####[facility] ([facility])[address], [place] [address]Uljz nitrogen [Mass/Vol]32 mg/dLHigh 7-25UnAvita Health System Bu[facility] HospitalComment on above:Performed By: #### [id number] ####[facility] ([facility])[address], [place] [address]WNOU NITROGEN/CREATININE (MASS RATIO) IN SER/PLAS14.3NormalUniversSelect Medical OhioHealth Rehabilitation HospitalComment on above:Performed By: #### [id number] ####[facility] ([facility])[address], [place] [address]MLQMYZGRjl 04-80-9554GNBSOACM (NG/ML) IN SER/NLBK6874.0 ng/iVPrlr19.0-336.0UnAvita Health System Bu[facility]rus HospitalComment on above:Performed By: #### [id number] ####[facility] ([facility])[address], [place] [address]RXUD AND TIBCon 02-37-6805BQXR (UG/DL) IN SER/PLAS33 ug/dLLow 50-212UnAvita Health System Bu[facility] HospitalComment on above:Performed By: #### [id number] ####[facility] ([facility])[address] [place], [place] [address]NKCH BINDING CAPACITY (UG/DL) IN SER/YTUR655 ug/wSKbi638-476YnwkpeifnpAvita Health System Bucyrus HospitalComment on above:Performed By: #### [id number] ####[facility] ([facility])[address] [place], [place] [address]VOUC BINDING CAPACITY.UNSATURATED (UG/DL) IN SER/QYGJ474.0 ug/vFRzeeob990.0-355.0UnAvita Health System Bu[facility] HospitalComment on above:Performed By: #### [id number] ####[facility] ([facility])[address] [place], [place] [address]QFHH SATURATION (%) IN SER/PLAS15 %Low 20-50UnAvita Health System Bu[facility] HospitalComment on above:Performed By: #### [id number] ####[facility] ([facility])[address] [place], [place] [address]ONADENHGJ on 48-98-1504Iosowrjun [Mass/Vol]1.9 mg/dLNormal1.9-2.7UnAvita Health System [facility] HospitalComment on above:Performed By: #### [id number] ####[facility] ([facility])[address] [place], [place] [address]Rnwmfxdtv [Mass/Vol]2.0 mg/dLNormal 1.9-2.7UnAvita Health System Bucyrus HospitalComment on above:Performed By: #### [id number] ####[facility] ([facility])[address] [place], [place] [address]Fomnyapls [Mass/Vol]2.1 mg/dLNormal1.9-2.7UnAvita Health System Bu[facility] HospitalComment on above:Performed By: #### [id number] ####[facility] ([facility])[address] [place], [place] [address]Hsvcbiuba [Mass/Vol]2.2 mg/dLNormal1.9-2.7UnAvita Health System Bu[facility] HospitalComment on above:Performed By: #### [id number] ####[facility] ([facility])[address] [place], [place] [address]Rbszcyxhh [Mass/Vol]1.9 mg/dLNormal1.9-2.7UnAvita Health System Bu[facility] HospitalComment on above:Performed By: #### [id number] ####[facility] ([facility])[address] [place] [address] Magnesium [Mass/Vol]2.0 mg/dLNormal1.9-2.7Un[facility] Comment on above:Performed By: #### [id number] ####[facility] ([facility])[address] [place], [place] [address]AGQRAATRMHdk 06-26-3793Isnwuionv [Mass/Vol]2.8 mg/dLNormal2.5-5.0UnAvita Health System Bu[facility] HospitalComment on above:Performed By: #### [id number] ####[facility] ([facility])[address] [place] [address] Magnesium [Mass/Vol]3.0 mg/dLNormal2.5-5.0Un[facility] Comment on above:Performed By: #### [id number] ####[facility] ([facility])[address] [place], [place] [address]Bzogvigjn [Mass/Vol]2.5 mg/dLNormal2.5-5.0 [facility] HospitalComment on above:Performed By: #### [id number] ####[facility] ([facility] [place], [place] [address]Wfgsduhag [Mass/Vol]2.4 mg/dLLow2.5-5.0UnAvita Health System Bu[facility] HospitalComment on above:Performed By: #### [id number] ####[facility] ([facility])[address] [place], [place] [address]Gnwutzaaf [Mass/Vol]2.8 mg/dLNormal2.5-5.0UnAvita Health System Bu[facility] HospitalComment on above:Performed By: #### [id number] ####[facility] ([facility])[address] [address]Usimrdqte [Mass/Vol]2.7 mg/dLNormal2.5-5.0UnAvita Health System Bu[facility] HospitalComment on above:Performed By: #### [id number] ####[facility] ([facility])[address] [place] [address] 30on [id number] patient is Moderately Unstable - Medium risk of patient condition declining or worsening The patient's goals for the shift include comfort The clinical goals for the shift include VSSNormalUniversity of Lubbock Heart & Surgical HospitalABG UNSOLICITED RESULTSon 55-24-1001G-RQB1SlflmkRxzfcnfpoe Kettering Health DaytonComment on above:Result Comment: C^IncalculablePerformed By: #### [id number] ####[facility] RESPIRATORY [id number] [place] [address] USABase excess Calc (Bld) [Moles/Vol]-7.3000 mmol/LLow-2.0-3.0UnAvita Health System Bu[facility]rus HospitalComment on above:Performed By: #### [id number] ####[facility] RESPIRATORY [id number] [place] [address] USACO2 (Bld) [Partial pressure]30 mm[Hg]Gch38-76UvihabygbcAvita Health System Bucyrus HospitalComment on above:Performed By: #### [id number] ####[facility] RESPIRATORY [id number] [place] [address] [place] HCO3 (Bld) [Moles/Vol]16.9 mmol/LLow21.0-28.0Un[facility] Comment on above:Performed By: #### [id number] ####[facility] RESPIRATORY [id number] [place] [address] USAOxygen (Bld) [Partial pressure]86 mm[Hg]Normal 83-108UnAvita Health System [facility] HospitalComment on above:Performed By: #### [id number] ####[facility] RESPIRATORY [id number] [place] [address] USAOXYGEN DEVICE #1CannulaNormOhio Valley HospitalniVeterans Health AdministrationComment on above: Performed By: #### [id number] ####[facility] RESPIRATORY [id number] [place] [address] USAOXYGEN LITERS PER MINUTE (LPM) IN BLOOD4.0 LPMNormalFlower HospitalComment on above:Performed By: #### [id number] ####[facility] RESPIRATORY [id number] [place] [address] USAOXYGEN SATURATION (%) IN ARTERIAL BLOOD98.1 %Fnrzmx41.0-100.0UnAv[facility] Comment on above:Performed By: #### [id number] ####[facility] RESPIRATORY [id number] [place] [address] USAOXYGENATED HEMOGLOBIN IN ARTERIAL BLOOD96.2 % Yydmsz78.0-97.0UnAv[facility] Health System Bu[facility] HospitalComment on above:Performed By: #### [id number] ####[facility] RESPIRATORY [id number] [place] [address] [place] PAO2/FYT2StzjxzIofjahgywtVeterans Health AdministrationComment on above:Result Comment: C^IncalculablePerformed By: #### [id number] ####[facility] RESPIRATORY [id number] [place] [address] USAPF RATIONormalUnAvita Health System Bucyrus HospitalComment on above:Result Comment: C^IncalculablePerformed By: #### [id number] ####[facility] RESPIRATORY [id number] [place] [address] USAPH OF ARTERIAL BLOOD7.12Hsuhvj5.35-7.45UnAvita Health System Bu[facility]rus HospitalComment on above:Performed By: #### [id number] ####[facility] RESPIRATORY [id number] [place] [address] WMEBKZJTVPIXLR26.0 ???CNormalUnAvita Health System Bucyrus HospitalComment on above:Performed By: #### [id number] ####[facility] RESPIRATORY [id number] [place] [address] USABASIC METABOLIC PANELon 04-28-2025 Anion gap [Moles/Vol]15 mmol/LNormal7-20Un[facility] Comment on above:Performed By: #### [id number] ####[facility] ([facility])[address] [place] [address]Qlfvyss [Mass/Vol]6.9 mg/dLLow8.6-10.3UnAv[facility] Health System [facility] HospitalComment on above:Performed By: #### [id number] ####[facility] ([facility])[address] [facility] [place] [address]Vedvdena [Moles/Vol]99 mmol/EFptqsg09-432RzhxhnqyygAvita Health System Bucyrus HospitalComment on above:Performed By: #### [id number] ####[facility] ([facility])[address] [place] [address] CO2 [Moles/Vol]21 mmol/LMhsezs01-77CcweyncxuxAvita Health System Bucyrus HospitalComment on above:Performed By: #### [id number] ####[facility] ([facility])[address] [place] [facility] [address]Wdhzejjztb [Mass/Vol]2.65 mg/dLHigh0.70-1.30UnAv[facility] Health System [facility] HospitalComment on above:Performed By: #### [id number] ####[facility] ([facility])[address] [place] [place] [address]DUJJPGPUDR FILTRATION RATE ML/MIN/1.73 SQ M.AGLMPPQVR95.3 mL/min/1.73m*2Low>60.0UnAvita Health System [facility] HospitalComment on above:Result Comment: [facility]???s estimated glomerular filtration rate (eGFR) will [...] anyone group of individuals.Performed By: #### [id number] ####[facility] ([facility])[address] [place], [place] [address]Xtukaql [Mass/Vol]109 mg/cYZort87-073GpawfzzrwhAvita Health System Bucyrus HospitalComment on above:Performed By: #### [id number] ####[facility] ([facility])[address] [place], [place] [address]Hnphoqsgq [Moles/Vol]3.7 mmol/LNormal3.5-5.1UnAvita Health System [facility] HospitalComment on above:Performed By: #### [id number] ####[facility] ([facility])[address] [place], [place] [address]Zrrhfw [Moles/Vol]131 mmol/LLow 136-145UnAv[facility] System [facility] HospitalComment on above:Performed By: #### [id number] ####[facility] ([facility])[address] [place], [place] [address]Gjwy nitrogen [Mass/Vol]38 mg/dLHigh7-25UnAv[facility] HospitalComment on above:Performed By: #### [id number] ####[facility] ([facility])[address] [place], [place] [address]JMYO NITROGEN/CREATININE (MASS RATIO) IN SER/PLAS14.3Normal [facility] HospitalComment on above:Performed By: #### [id number] ####[facility] ([facility])[address] [place], [place] [address]Nyrvn gap [Moles/Vol]14 mmol/LNormal7-20UnAv[facility] HospitalComment on above:Performed By: #### [id number] ####[facility] ([facility])[address] [place], [place] [address]Deelcup [Mass/Vol]6.3 mg/dLLow8.6-10.3UnAv[facility] HospitalComment on above:Performed By: #### [id number] ####[facility] ([facility])[address], [place] [address]Mbcrjuax [Moles/Vol]100 mmol/LNormal 98-107UnAv[facility] HospitalComment on above:Performed By: #### [id number] ####[facility] ([facility], [place] [address]UG3 [Moles/Vol]21 mmol/QQqrofl63-11CtbzloepscAvita Health System Bucyrus HospitalComment on above:Performed By: #### [id number] ####[facility] ([facility])[address] [place], [place] [address]Laeykaawtk [Mass/Vol]3.34 mg/dLHigh0.70-1.30UnAv[facility] HospitalComment on above:Performed By: #### [id number] ####[facility] ([facility])[address] [place], [place] [address]VWJJYNYJOR FILTRATION RATE ML/MIN/1.73 SQ M.CTWHMDSEJ09.2 mL/min/1.73m*2Low>60.0UnAv[facility] HospitalComment on above:Result Comment: [facility]???s estimated glomerular filtration rate (eGFR) will [...] anyone group of individuals.Performed By: #### [id number] ####[facility] ([facility], [place] [address]Qnvavwi [Mass/Vol]123 mg/bJRhhs84-352UcjqofzixqAvita Health System Bucyrus HospitalComment on above:Performed By: #### [id number] ####[facility] ([facility], [place] [address]Pehnmkjgv [Moles/Vol]3.6 mmol/LNormal3.5-5.1UnAv[facility] HospitalComment on above:Performed By: #### [id number] ####[facility] ([facility])[address] [place], [place] [address]Bjyjtg [Moles/Vol]131 mmol/LLow 136-145UnAv[facility] HospitalComment on above:Performed By: #### [id number] ####[facility] ([facility])[address], [place] [address]Bfeq nitrogen [Mass/Vol]45 mg/dLHigh7-25UnAv[facility] HospitalComment on above:Performed By: #### [id number] ####[facility] ([facility])[address], [place] [address]FPAW NITROGEN/CREATININE (MASS RATIO) IN SER/PLAS13.5Normal [facility] HospitalComment on above:Performed By: #### [id number] ####[facility] ([facility])[address] [place], [place] [address]Fuzyl gap [Moles/Vol]14 mmol/LNormal7-20UnAv[facility] HospitalComment on above:Performed By: #### [id number] ####[facility] ([facility])[address], [place] [address]Vsvosjj [Mass/Vol]6.7 mg/dLLow8.6-10.3UnAv[facility] HospitalComment on above:Performed By: #### [id number] ####[facility] ([facility])[address] [place], [place] [address]Iultszvh [Moles/Vol]99 mmol/LNormal 98-107UnAv[facility] HospitalComment on above:Performed By: #### [id number] ####[facility] ([facility])[address], [place] [address]ER3 [Moles/Vol]21 mmol/RFdemfv49-04GiytsmiwppAvita Health System Bucyrus HospitalComment on above:Performed By: #### [id number] ####[facility] ([facility])[address] [place], [place] [address]Baedcgenut [Mass/Vol]3.36 mg/dLHigh0.70-1.30UnAv[facility] HospitalComment on above:Performed By: #### [id number] ####[facility] ([facility])[address], [place] [address]VBWCWFATKU FILTRATION RATE ML/MIN/1.73 SQ M.MEKKLZTGJ43.0 mL/min/1.73m*2Low>60.0UnAv[facility] HospitalComment on above:Result Comment: [facility]???s estimated glomerular filtration rate (eGFR) will [...] anyone group of individuals.Performed By: #### [id number] ####[facility] ([facility])[address] [place], [place] [address]Bafoqdk [Mass/Vol]121 mg/gIYuik19-842VplpgwckfbAvita Health System Bucyrus HospitalComment on above:Performed By: #### LAB15 ####[facility] ([facility])[address] [place], [place] [address]Ocspasfby [Moles/Vol]4.3 mmol/LNormal3.5-5.1UnAv[facility] HospitalComment on above:Performed By: #### LAB15 ####[facility] ([facility])[address] [place], [place] [address]Uisiea [Moles/Vol]130 mmol/LLow 136-145UnAv[facility] HospitalComment on above:Performed By: #### LAB15 ####[facility] ([facility])[address] [place], [place] [address]Lgpb nitrogen [Mass/Vol]42 mg/dLHigh7-25Un[facility] HospitalComment on above:Performed By: #### LAB15 ####[facility] ([facility])[address] [place], [place] [address]PRCY NITROGEN/CREATININE (MASS RATIO) IN SER/PLAS12.5Normal [facility] HospitalComment on above:Performed By: #### LAB15 ####[facility] [place], [place] [address]Vooqn gap [Moles/Vol]17 mmol/LNormal7-20Un[facility] HospitalComment on above:Performed By: #### LAB15 ####[facility] ([facility] [place], [place] [address]Ltchknf [Mass/Vol]7.0 mg/dLLow8.6-10.3UnAv[facility] HospitalComment on above:Performed By: #### LAB15 ####[facility] ([facility])[address] [place], [place] [address]Rqzikefl [Moles/Vol]100 mmol/LNormal 98-107UnAv[facility] HospitalComment on above:Performed By: #### LAB15 ####[facility] ([facility])[address] [place], [place] [address]LF4 [Moles/Vol]16 mmol/FInh17-55OcxwrhcrjnAvita Health System Bucyrus HospitalComment on above: Performed By: #### LAB15 ####[facility] ([facility])[address] [place], [place] [address]Wnpeomocyu [Mass/Vol]3.23 mg/dLHigh0.70-1.30UnAv[facility] HospitalComment on above:Performed By: #### LAB15 ####[facility] ([facility])[address] [place], [place] [address]XLQEGBLZFB FILTRATION RATE ML/MIN/1.73 SQ M.FOLGWWBNC28.0 mL/min/1.73m*2Low>60.0Un[facility] Comment on above:Result Comment: [facility]???s estimated glomerular filtration rate (eGFR) will [...] anyone group of individuals.Performed By: #### LAB15 ####[facility] ([facility])[address] [place], [place] [address]Elwatko [Mass/Vol]151 mg/sEGisg31-731BicxfvtdpbAvita Health System Bucyrus HospitalComment on above:Performed By: #### LAB15 ####[facility] ([facility])[address] [place], [place] [address]Agpkkzcnq [Moles/Vol]4.3 mmol/LNormal3.5-5.1UnAv[facility] HospitalComment on above:Performed By: #### LAB15 ####[facility] ([facility])[address] [place], [place] [address]Jiiysz [Moles/Vol]129 mmol/LLow 136-145UnAvita Health System Bu[facility] HospitalComment on above:Performed By: #### LAB15 ####[facility] ([facility])[address] [place], [place] [address]Oxib nitrogen [Mass/Vol]41 mg/dLHigh7-25UnAv[facility] HospitalComment on above:Performed By: #### LAB15 ####[facility] ([facility])[address] [place], [place] [address]XNOZ NITROGEN/CREATININE (MASS RATIO) IN SER/PLAS12.7Normal [facility] HospitalComment on above:Performed By: #### LAB15 ####[facility] ([facility])[address] [place], [place] [address]Vwctt gap [Moles/Vol]19 mmol/LNormal7-20UnAvita Health [facility] HospitalComment on above:Performed By: #### [id number] ####[facility] ([facility])[address] [place], [place] [address]Yrjwywe [Mass/Vol]6.1 mg/dLLow8.6-10.3UnAvita Health System [facility] HospitalComment on above:Performed By: #### [id number] ####[facility] ([facility])[address] [place], [place] [address]Dcfegmzc [Moles/Vol]101 mmol/LNormal 98-107UnAv[facility] HospitalComment on above:Performed By: #### [id number] ####[facility] ([facility])[address] [place] [address]ZA1 [Moles/Vol]13 mmol/LInvalid Interpretation Njod56-02AzfizrgainAvita Health System Bucyrus HospitalComment on above:Performed By: #### [id number] ####[facility] ([facility])[address] [place] [address]Rkfgflhjoi [Mass/Vol]3.55 mg/dLHigh 0.70-1.30UnAv[facility] HospitalComment on above:Performed By: #### [id number] ####[facility] ([facility])[address] [place] [address]BVQWALQRTE FILTRATION RATE ML/MIN/1.73 SQ M.OIWOLZFOG51.8 mL/min/1.73m*2Low>60.0UnAv[facility] HospitalComment on above:Result Comment: [facility]???s estimated glomerular filtration rate (eGFR) will [...] group of individuals. Performed By: #### [id number] ####[facility] ([facility])[address] [place] [address]Cxhfksc [Mass/Vol]161 mg/cOSaxa42-560IbyqiktequAvita Health System Bucyrus HospitalComment on above:Performed By: #### [id number] ####[facility] ([facility])[address] [place] [address]Rojtngxjf [Moles/Vol]4.1 mmol/LNormal 3.5-5.1UnAv[facility] System [facility] HospitalComment on above:Performed By: #### [id number] ####[facility] ([facility] [place], [place] [address]Tquoxn [Moles/Vol]129 mmol/QUak502-701YiyslmxyokAvita Health System Bucyrus HospitalComment on above:Performed By: #### [id number] ####[facility] ([facility])[address] [place], [place] [address]Ykgn nitrogen [Mass/Vol]44 mg/dLHigh7-25UnAv[facility] HospitalComment on above:Performed By: #### [id number] ####[facility] ([facility])[address] [place], [place] [address]SWXC NITROGEN/CREATININE (MASS RATIO) IN SER/PLAS12.4NormalUniversSelect Medical OhioHealth Rehabilitation HospitalComment on above: Performed By: #### [id number] ####[facility] ([facility])[address] [place], [place] [address]PPUlm 23-18-6128Cpvxwoveznc distribution width (RBC) [Ratio]14.3 % Fqmbci16.5-15.0UnAvita Health System Bucyrus HospitalComment on above:Performed By: #### [id number] ####[facility] ([facility])[address] [place] [address] ERYTHROCYTE MEAN CORPUSCULAR HEMOGLOBIN CONCENTRATION (G/DL) BY GJAHNGPKR69.6 g/nGMvbdah73.0-35.0UnAvita Health System Bucyrus HospitalComment on above:Performed By: #### [id number] ####[facility] ([facility])[address] [place], [place] [address]Fboabegfle (Bld) [Volume fraction]27.2 %Low39.0-50.0UnAvita Health System Bucyrus HospitalComment on above:Performed By: #### [id number] ####[facility] ([facility])[address] [place], [place] [address]Snkfdvasab (Bld) [Mass/Vol]9.4 g/dLLow 13.0-17.0UnAvita Health System Bucyrus HospitalComment on above:Performed By: #### [id number] ####[facility] ([facility])[address] [place] [address]LLC (RBC) [Entitic mass]32.4 oqRhtedk44.0-33.0UnAvita Health System Bucyrus HospitalComment on above:Performed By: #### [id number] ####[facility] ([facility])[address] [address]RDJ (RBC) [Entitic vol]93.8 hVElzuiv82.0-98.0UnAvita Health System Bucyrus HospitalComment on above:Performed By: #### [id number] ####[facility] ([facility])[address] [place] [address]JDQFHYGNU (10*3/UL) IN BLOOD AUTOMATED [id number] 10*3/fITwyiyh281-898WagardfukbAvita Health System Bucyrus Hospital Comment on above:Performed By: #### [id number] ####[facility] ([facility])[address] [place] [address]QGW (Bld) [#/Vol]2.90 10*6/uLLow4.20-5.70UnAvita Health System Bucyrus HospitalComment on above:Performed By: #### [id number] ####[facility] ([facility])[address] [place] [address]WDW (Bld) [#/Vol]19.72 10*3/uLHigh4.00-10.60UnAvita Health System Bucyrus HospitalComment on above: Performed By: #### [id number] ####[facility] ([facility])[address] [place] [address]QJNPWBYUKGXND METABOLIC PANELon 80-20-5505Wfmqxwv [Mass/Vol] 3.1 g/dLLow3.5-5.7UnAvita Health System Bucyrus HospitalComment on above:Performed By: #### [id number] ####[facility] ([facility])[address] [place] [address] ALP [Catalytic activity/Vol]62 U/JUckhbt94-539EwrqbwohyeAvita Health System Bucyrus HospitalComment on above:Performed By: #### [id number] ####[facility] ([facility])[address] [place], [place] [address]HZZ [Catalytic activity/Vol]314 U/L High7-52UnAvita Health System Bu[facility]rus HospitalComment on above:Performed By: #### [id number] ####[facility] ([facility])[address] [place], [place] [address]Fdwep gap [Moles/Vol]15 mmol/LNormal7-20UnAvita Health System Bu[facility] HospitalComment on above:Performed By: #### [id number] ####[facility] ([facility])[address] [place], [place] [address]KLA [Catalytic activity/Vol]514 U/AUjnp44-08AzdhnotrngAvita Health System Bucyrus HospitalComment on above:Performed By: #### [id number] ####[facility] ([facility])[address] [place], [place] [address]Gvjernrww [Mass/Vol]0.6 mg/dL Normal0.3-1.0UnAvita Health System Bu[facility] HospitalComment on above:Performed By: #### [id number] ####[facility] ([facility])[address] [place] [address] Calcium [Mass/Vol]6.9 mg/dLLow8.6-10.3UnAvita Health System Bu[facility] HospitalComment on above:Performed By: #### [id number] ####[facility] ([facility])[address] [place], [place] [address]Nlcwqweg [Moles/Vol]98 mmol/OPpgbwo30-611LcwqvaauuuAvita Health System Bucyrus HospitalComment on above:Performed By: #### [id number] ####[facility] ([facility])[address] [place], [place] [address]PN2 [Moles/Vol]22 mmol/NEaplka40-51 [facility] HospitalComment on above:Performed By: #### [id number] ####[facility] ([facility])[address] [place], [place] [address]Ymcukvhmxo [Mass/Vol]3.18 mg/dLHigh0.70-1.30UnAv[facility] Health System [facility] HospitalComment on above:Performed By: #### [id number] ####[facility] ([facility])[address] [place] [address]ZMYZJBMHUJ FILTRATION RATE ML/MIN/1.73 SQ M.AKLCVTCKS76.3 mL/min/1.73m*2Low>60.0UnAvita Health System Bu[facility]rus HospitalComment on above:Result Comment: [facility]???s estimated glomerular filtration rate (eGFR) will [...] anyone group of individuals.Performed By: #### [id number] ####[facility] ([facility])[address] [place] [address]Mbwnbll [Mass/Vol]132 mg/cUJdif35-540IpzhpklfnaAvita Health System Bucyrus HospitalComment on above:Performed By: #### [id number] ####[facility] ([facility])[address] [place] [address]Oikicafoo [Moles/Vol]3.6 mmol/L Normal3.5-5.1UnAvita Health System Bu[facility] HospitalComment on above:Performed By: #### [id number] ####[facility] ([facility])[address] [place] [address] Protein [Mass/Vol]5.5 g/dLLow6.0-8.3UnAv[facility] Health System [facility] HospitalComment on above:Performed By: #### [id number] ####[facility] ([facility])[address] [place], [place] [address]Ojadbs [Moles/Vol]131 mmol/HXgc477-268AvxjmpcqpqAvita Health System Bucyrus HospitalComment on above:Performed By: #### [id number] ####[facility] ([facility])[address] [place], [place] [address]Cbhd nitrogen [Mass/Vol]43 mg/dLHigh 7-25UnAv[facility] Health System [facility] HospitalComment on above:Performed By: #### [id number] ####[facility] ([facility])[address] [place], [place] [address]XDQF NITROGEN/CREATININE (MASS RATIO) IN SER/PLAS13.5NormalUniversSelect Medical OhioHealth Rehabilitation HospitalComment on above:Performed By: #### [id number] ####[facility] ([facility])[address] [place], [place] [address]VBBHSRNVMah 85-53-0262Whronpqlv [Mass/Vol]1.8 mg/dLLow1.9-2.7UnAv[facility] Health System [facility] HospitalComment on above:Performed By: #### [id number] ####[facility] ([facility])[address] [place], [place] [address]Hkywokhea [Mass/Vol]2.0 mg/dLNormal1.9-2.7UnAv[facility] Health System Bu[facility] HospitalComment on above:Performed By: #### [id number] ####[facility] ([facility])[address] [place], [place] [address]Cuymknwzp [Mass/Vol]2.0 mg/dLNormal1.9-2.7UnAv[facility] Health System [facility] HospitalComment on above:Performed By: #### [id number] ####[facility] ([facility] [place] [address] Magnesium [Mass/Vol]2.1 mg/dLNormal1.9-2.7Un[facility] Comment on above:Performed By: #### [id number] ####[facility] ([facility])[address] [place], [place] [address]Ctqprvmdh [Mass/Vol]1.9 mg/dLNormal1.9-2.7 [facility] HospitalComment on above:Performed By: #### [id number] ####[facility] ([facility])[address] [place], [place] [address]Iellzkctz [Mass/Vol]1.9 mg/dLNormal1.9-2.7UnAv[facility] Health System [facility] HospitalComment on above:Performed By: #### [id number] ####[facility] [place], [place] [address]TRXQPJRSYPip [phone] [Mass/Vol]3.3 mg/dLNormal 2.5-5.0UnAv[facility] Health System [facility] HospitalComment on above:Performed By: #### [id number] ####[facility] ([facility])[address] [place], [place] [address]Ggtbkgvxj [Mass/Vol]4.1 mg/dLNormal2.5-5.0UnAv[facility] Health System [facility] HospitalComment on above:Performed By: #### [id number] ####[facility] ([facility])[address] [place], [place] [address]Dudmhljwk [Mass/Vol]4.7 mg/dLNormal2.5-5.0UnAv[facility] Health System [facility] HospitalComment on above:Performed By: #### [id number] ####[facility] ([facility])[address] [place], [place] [address]Thbhmgnwi [Mass/Vol]4.9 mg/dLNormal2.5-5.0UnAv[facility] Health System [facility] HospitalComment on above:Performed By: #### [id number] ####[facility] ([facility])[address] [place] [address] Magnesium [Mass/Vol]4.4 mg/dLNormal2.5-5.0Un[facility] Comment on above:Performed By: #### [id number] ####[facility] ([facility])[address] [place], [place] [address]Bcchfzqci [Mass/Vol]3.7 mg/dLNormal2.5-5.0 [facility] HospitalComment on above:Performed By: #### [id number] ####[facility] ([facility])[address] [place], [place] [address]GMXQ GLUCOSE METER UNSOLICITED RESULTSon 36-45-6904Gwnecem [Mass/Vol]88 mg/mJWjkzxz16-781 [facility] HospitalComment on above:Order Comment: Waived Testing in the ED is performed under the ED CLIA certificate #[id number].Result Comment: [id number] By: #### [id number] ####[facility] ([facility])[address] [address]fh 02-29-451412Txj patient is Moderately Unstable - Medium risk of patient condition declining or worsening The patient's goals for the shift include comfort The clinical goals for the shift include VSSNormalUniversity of Lubbock Heart & Surgical HospitalBASIC METABOLIC PANELon 44-47-3423Neelm gap [Moles/Vol]20 mmol/LNormal7-20 [facility] HospitalComment on above:Performed By: #### [id number] ####[facility] ([facility])[address] [place] [address]Viammqi [Mass/Vol]6.5 mg/dLLow8.6-10.3UnAvita Health System Bu[facility] HospitalComment on above:Performed By: #### [id number] ####[facility] ([facility])[address] [place] [address]Jskxdqop [Moles/Vol]98 mmol/KCpsckz24-707WxqncmghzzAvita Health System Bucyrus HospitalComment on above:Performed By: #### [id number] ####[facility] ([facility])[address] [place] [address]DS5 [Moles/Vol]15 mmol/AWaa12-27 [facility] HospitalComment on above:Performed By: #### [id number] ####[facility] ([facility])[address] [place] [address]Wwejuxarho [Mass/Vol]3.53 mg/dLHigh0.70-1.30UnAvita Health System [facility] HospitalComment on above:Performed By: #### [id number] ####[facility] ([facility])[address] [place] [address]LTGABTNWXD FILTRATION RATE ML/MIN/1.73 SQ M.PIJXXIQGL68.9 mL/min/1.73m*2Low>60.0UnAvita Health System [facility] HospitalComment on above:Result Comment: [facility]???s estimated glomerular filtration rate (eGFR) will [...] anyone group of individuals.Performed By: #### [id number] ####[facility] ([facility])[address] [place], [place] [address]Sbiwmvn [Mass/Vol]140 mg/iAFgkq64-775IfzoxhgyvpAvita Health System Bucyrus HospitalComment on above:Performed By: #### [id number] ####[facility] ([facility])[address] [place], [place] [address]Cbgqigwbr [Moles/Vol]4.6 mmol/L Normal3.5-5.1UnAvita Health System [facility] HospitalComment on above:Performed By: #### [id number] ####[facility] ([facility])[address] [place] [address] Sodium [Moles/Vol]128 mmol/OPod464-453JbpgnkaxitAvita Health System Bucyrus HospitalComment on above:Performed By: #### [id number] ####[facility] ([facility])[address] [place], [place] [address]Feok nitrogen [Mass/Vol]47 mg/dLHigh7-25UnAv[facility] HospitalComment on above:Performed By: #### [id number] ####[facility] ([facility])[address] [place], [place] [address]QAUE NITROGEN/CREATININE (MASS RATIO) IN SER/PLAS13.3NormalUniversSelect Medical OhioHealth Rehabilitation HospitalComment on above: Performed By: #### [id number] ####[facility] ([facility])[address] [place], [place] [address]Txgvu gap [Moles/Vol]18 mmol/LNormal7-20UnAvita Health System [facility] HospitalComment on above:Performed By: #### [id number] ####[facility] ([facility])[address] [place], [place] [address]Hyvtldy [Mass/Vol]6.7 mg/dLLow8.6-10.3 [facility] HospitalComment on above:Performed By: #### [id number] ####[facility] ([facility])[address] [place], [place] [address]Npucifxi [Moles/Vol]100 mmol/EGxpfop18-244JmdzdpkbixAvita Health System Bucyrus HospitalComment on above:Performed By: #### [id number] ####[facility] ([facility])[address] [place], [place] [address]AF3 [Moles/Vol]16 mmol/GMcp16-27LtcrstkltvAvita Health System Bucyrus HospitalComment on above:Performed By: #### [id number] ####[facility] ([facility])[address] [place], [place] [address]Rpejrlqdcm [Mass/Vol]3.57 mg/dLHigh 0.70-1.30UnAvita Health System [facility] HospitalComment on above:Performed By: #### [id number] ####[facility] ([facility])[address] [place], [place] [address]SSUHJCZDAG FILTRATION RATE ML/MIN/1.73 SQ M.FKQPFMNAX83.7 mL/min/1.73m*2Low>60.0UnAvita Health System [facility] HospitalComment on above:Result Comment: [facility]???s estimated glomerular filtration rate (eGFR) will [...] group of individuals. Performed By: #### [id number] ####[facility] ([facility])[address] [place], [place] [address]Kesohpo [Mass/Vol]134 mg/hVBwmf01-110RewgvbewvgAvita Health System Bucyrus HospitalComment on above:Performed By: #### [id number] ####[facility] ([facility] [place], [place] [address]Zrghhfljm [Moles/Vol]4.5 mmol/LNormal 3.5-5.1UnAv[facility] Health System [facility] HospitalComment on above:Performed By: #### [id number] ####[facility] ([facility])[address] [place], [place] [address]Mypbwz [Moles/Vol]129 mmol/CAbo979-893AabdseyakaAvita Health System Bucyrus HospitalComment on above:Performed By: #### [id number] ####[facility] ([facility])[address] [place], [place] [address]Npqr nitrogen [Mass/Vol]46 mg/dLHigh7-25UnAv[facility] HospitalComment on above:Performed By: #### [id number] ####[facility] ([facility])[address] [place], [place] [address]TNKC NITROGEN/CREATININE (MASS RATIO) IN SER/PLAS12.9NormalUniversSelect Medical OhioHealth Rehabilitation HospitalComment on above: Performed By: #### [id number] ####[facility] ([facility])[address] [place], [place] [address]Mkxlz gap [Moles/Vol]18 mmol/LNormal7-20UnAv[facility] HospitalComment on above:Performed By: #### [id number] ####[facility] ([facility] [place], [place] [address]Blmqswz [Mass/Vol]7.1 mg/dLLow8.6-10.3 [facility] HospitalComment on above:Performed By: #### [id number] ####[facility] ([facility] [place], [place] [address]Pqbgxymm [Moles/Vol]98 mmol/KUfqoqx21-262ZjxvemvktiAvita Health System Bucyrus HospitalComment on above:Performed By: #### [id number] ####[facility] ([facility] [place], [place] [address]LH5 [Moles/Vol]16 mmol/THdv31-61QnnqqnxamqAvita Health System Bucyrus HospitalComment on above:Performed By: #### [id number] ####[facility] ([facility])[address] [place] [address]Dxbxrbryga [Mass/Vol]3.03 mg/dLHigh 0.70-1.30UnAvita Health System [facility] HospitalComment on above:Performed By: #### [id number] ####[facility] ([facility])[address] [place] [address]FAMAJPARXA FILTRATION RATE ML/MIN/1.73 SQ M.SJPHDNAFM08.5 mL/min/1.73m*2Low>60.0UnAvita Health System [facility] HospitalComment on above:Result Comment: [facility]???s estimated glomerular filtration rate (eGFR) will [...] group of individuals. Performed By: #### [id number] ####[facility] ([facility])[address] [place] [address]Cptoorh [Mass/Vol]175 mg/iZNqxc37-703LxkknqgpwcAvita Health System Bucyrus HospitalComment on above:Performed By: #### [id number] ####[facility] ([facility])[address] [place], [place] [address]Zlupvwaks [Moles/Vol]4.5 mmol/LNormal 3.5-5.1UnAvita Health System [facility] HospitalComment on above:Performed By: #### [id number] ####[facility] ([facility])[address] [place] [address]Rzboji [Moles/Vol]127 mmol/OMgl099-580CaldkyqjamAvita Health System Bucyrus HospitalComment on above:Performed By: #### [id number] ####[facility] ([facility] [address]Jqeh nitrogen [Mass/Vol]41 mg/dLHigh7-25UnAv[facility] HospitalComment on above:Performed By: #### [id number] ####[facility] ([facility])[address] [address]VXXQ NITROGEN/CREATININE (MASS RATIO) IN SER/PLAS13.5NormalUniversSelect Medical OhioHealth Rehabilitation HospitalComment on above: Performed By: #### [id number] ####[facility] ([facility])[address] [address]KZYhe 93-01-0438Cmtmjoeeqgz distribution width (RBC) [Ratio]14.0 % Trohtk49.5-15.0UnAvita Health System Bu[facility] HospitalComment on above:Performed By: #### [id number] ####[facility] ([facility])[address] [place] [address] ERYTHROCYTE MEAN CORPUSCULAR HEMOGLOBIN CONCENTRATION (G/DL) BY ZTKCZOZOI96.0 g/cZRzmvfd83.0-35.0UnAvita Health System [facility] HospitalComment on above:Performed By: #### [id number] ####[facility] ([facility])[address] [place] [address]Bevsxefpdd (Bld) [Volume fraction]32.0 %Low39.0-50.0UnAvita Health System [facility] HospitalComment on above:Performed By: #### [id number] ####[facility] ([facility])[address] [place] [address]Qdmfgqbdnx (Bld) [Mass/Vol]11.2 g/dL Low13.0-17.0UnAvita Health System [facility] HospitalComment on above:Performed By: #### [id number] ####[facility] ([facility])[address] [place] [address]ZCN (RBC) [Entitic mass]32.0 dmOrjgau82.0-33.0Un[facility] Comment on above:Performed By: #### [id number] ####[facility] ([facility])[address] [address]NUH (RBC) [Entitic vol]91.4 dUWtwfvh93.0-98.0 [facility] HospitalComment on above:Performed By: #### [id number] ####[facility] ([facility])[address] [address]IXPNDZWNJ (10*3/UL) IN BLOOD AUTOMATED [id number] 10*3/mTDvciqo579-870ThwouvtzqfAvita Health System Bucyrus HospitalComment on above:Performed By: #### [id number] ####[facility] ([facility])[address] [address]SWZ (Bld) [#/Vol]3.50 10*6/uLLow 4.20-5.70UnAvita Health System [facility] HospitalComment on above:Performed By: #### [id number] ####[facility] ([facility])[address] [address]AFX (Bld) [#/Vol]8.21 10*3/uLNormal4.00-10.60UnAv[facility] Health System [facility] HospitalComment on above:Performed By: #### [id number] ####[facility] ([facility])[address] [address]KA-JIGYURYUff 63-60-8990Gxcbbvxlse (Bld) [Mass/Vol]11.5 g/dL NormalUnAvita Health System Bucyrus HospitalComment on above:Performed By: #### [id number] ####[facility] RESPIRATORY [id number] [place] [address] USAOxygen saturation in Blood36.4 %NormalUnAvita Health System Bucyrus HospitalComment on above:Performed By: #### [id number] ####[facility] RESPIRATORY [id number] [place] [address] USAOXYGENATED HEMOGLOBIN IN BLOOD36.0 %NormalFlower HospitalComment on above:Performed By: #### [id number] ####[facility] RESPIRATORY [id number] [place] [address] USAHEMOGLOBIN AND HEMATOCRIT, BLOODon 56-23-6679Fhahtntlsd (Bld) [Volume fraction]30.2 %Low 39.0-50.0UnAvita Health System Bucyrus HospitalComment on above:Performed By: #### [id number] ####[facility] ([facility])[address] [place] [address] Hemoglobin (Bld) [Mass/Vol]10.6 g/dLLow13.0-17.0UnAvita Health System Bu[facility] HospitalComment on above:Performed By: #### [id number] ####[facility] ([facility])[address] [place] [address]LVARGXQSFub 08-12-0172Felslkmlf [Mass/Vol]1.8 mg/dLLow1.9-2.7UnAvita Health System Bucy[facility] HospitalComment on above:Performed By: #### [id number] ####[facility] ([facility])[address] [place], [place] [address]Mqwwinufn [Mass/Vol]1.6 mg/dLLow1.9-2.7UnAv[facility] Health [facility] Bu[facility] HospitalComment on above:Performed By: #### [id number] ####[facility] ([facility])[address] [place], [place] [address]Cucucddlb [Mass/Vol]1.9 mg/dLNormal 1.9-2.7UnAv[facility] Bu[facility] HospitalComment on above:Performed By: #### [id number] ####[facility] ([facility])[address] [place] [address] PHOSPHORUSon 88-65-6886Pqlzgqyhf [Mass/Vol]3.0 mg/dLNormal2.5-5.0UnAv[facility] HospitalComment on above:Performed By: #### [id number] ####[facility] ([facility])[address] [place], [place] [address]Ybdoeknjo [Mass/Vol]3.5 mg/dLNormal2.5-5.0UnAv[facility] HospitalComment on above:Performed By: #### [id number] ####[facility] ([facility] [place] [address] POCT GLUCOSE METER UNSOLICITED RESULTSon 20-51-8234Larlqsh [Mass/Vol]148 mg/dL Myjy06-951PfusdoniiaAvita Health System Bucyrus HospitalComment on above:Order Comment: Waived Testing in the ED is performed under the ED CLIA certificate #[id number]. Result Comment: [id number] By: #### [id number] ####[facility] ([facility])[address] [place], [place] [address]Yqayxvb [Mass/Vol]153 mg/rFMeah23-672 [facility] HospitalComment on above:Order Comment: Waived Testing in the ED is performed under the ED CLIA certificate #[id number].Result Comment: [id number] By: #### [id number] ####[facility] ([facility])[address] [place], [place] [address]Wqnqwda [Mass/Vol]170 mg/nDRxnv73-433WwqojmlgkbAvita Health System Bucyrus HospitalComment on above:Order Comment: Waived Testing in the ED is performed under the ED CLIA certificate #[id number].Result Comment: [id number] Performed By: #### [id number] ####[facility] ([facility])[address] [place], [place] [address]QYMIJ METABOLIC PANELon 70-55-6829Jwrae gap [Moles/Vol]18 mmol/LNormal7-20UnAv[facility] HospitalComment on above:Performed By: #### [id number] ####[facility] ([facility])[address] [place] [address] Calcium [Mass/Vol]6.8 mg/dLLow8.6-10.3UnAv[facility] Bu[facility] HospitalComment on above:Performed By: #### [id number] ####[facility] ([facility])[address] [place], [place] [address]Pxxhkxgy [Moles/Vol]98 mmol/GKrofug39-528IawigmwikyAvita Health System Bucyrus HospitalComment on above:Performed By: #### [id number] ####[facility] ([facility])[address] [place], [place] [address]IH5 [Moles/Vol]15 mmol/NDdh18-69 [facility] HospitalComment on above:Performed By: #### [id number] ####[facility] [facility] ([facility])[address] [place] [address]Covmgbmiyq [Mass/Vol]2.92 mg/dLHigh0.70-1.30UnAvita Health System Bucyrus HospitalComment on above:Performed By: #### [id number] ####[facility] ([facility])[address] [place] [address]NWVZEJOLIV FILTRATION RATE ML/MIN/1.73 SQ M.RZFNZMRCP05.5 mL/min/1.73m*2Low>60.0UnAvita Health System Bucyrus HospitalComment on above:Result Comment: [facility]???s estimated glomerular filtration rate (eGFR) will [...] anyone group of individuals.Performed By: #### [id number] ####[facility] ([facility])[address] [place] [address]Edihmzq [Mass/Vol]181 mg/qSYmll04-508NtmaghuxwkAvita Health System Bucyrus HospitalComment on above:Performed By: #### [id number] ####[facility] ([facility])[address] [place] [address]Xteqiifnh [Moles/Vol]4.3 mmol/L Normal3.5-5.1UnAvita Health System Bucyrus HospitalComment on above:Performed By: #### [id number] ####[facility] ([facility])[address] [place] [address] Sodium [Moles/Vol]127 mmol/KBqk156-267PmddjgixpwAvita Health System Bucyrus HospitalComment on above:Performed By: #### [id number] ####[facility] ([facility] [place], [place] [address]Velv nitrogen [Mass/Vol]41 mg/dLHigh7-25UnAvita Health System [facility] HospitalComment on above:Performed By: #### [id number] ####[facility] ([facility])[address] [place], [place] [address]MJUQ NITROGEN/CREATININE (MASS RATIO) IN SER/PLAS14.0NormalUniversSelect Medical OhioHealth Rehabilitation HospitalComment on above: Performed By: #### [id number] ####[facility] ([facility])[address] [place], [place] [address]Pnzaq gap [Moles/Vol]16 mmol/LNormal7-20UnAvita Health System Bu[facility] HospitalComment on above:Performed By: #### [id number] ####[facility] ([facility])[address] [place], [place] [address]Gngkqmv [Mass/Vol]7.1 mg/dLLow8.6-10.3 [facility] HospitalComment on above:Performed By: #### [id number] ####[facility] ([facility])[address] [place], [place] [address]Khnvlrrz [Moles/Vol]97 mmol/JIfj83-771AloguuarbpAvita Health System Bucyrus HospitalComment on above:Performed By: #### [id number] ####[facility] ([facility])[address] [place], [place] [address]PB6 [Moles/Vol]18 mmol/IOyb59-03SywoznqpvjAvita Health System Bucyrus HospitalComment on above:Performed By: #### [id number] ####[facility] ([facility])[address] [place], [place] [address]Zanpfkqpuh [Mass/Vol]2.84 mg/dLHigh 0.70-1.30UnAvita Health System Bucyrus HospitalComment on above:Performed By: #### [id number] ####[facility] ([facility])[address] [place], [place] [address]LHYYQOHTCA FILTRATION RATE ML/MIN/1.73 SQ M.HFQYFOFVV69.3 mL/min/1.73m*2Low>60.0UnAvita Health System Bucyrus HospitalComment on above:Result Comment: [facility]???s estimated glomerular filtration rate (eGFR) will [...] group of individuals. Performed By: #### [id number] ####[facility] ([facility])[address] [place], [place] [address]Niedeuz [Mass/Vol]168 mg/wPVbmd50-371AlhqgppnuyAvita Health System Bucyrus HospitalComment on above:Performed By: #### [id number] ####[facility] ([facility])[address] [place], [place] [address]Fuksldria [Moles/Vol]4.1 mmol/LNormal 3.5-5.1UnAvita Health System Bu[facility] HospitalComment on above:Performed By: #### [id number] ####[facility] ([facility])[address], [place] [address]Vjgczc [Moles/Vol]127 mmol/ONii264-977AafwwkelzkAvita Health System Bucyrus HospitalComment on above:Performed By: #### [id number] ####[facility] ([facility] [place], [place] [address]Mgda nitrogen [Mass/Vol]39 mg/dLHigh7-25UnAv[facility] HospitalComment on above:Performed By: #### [id number] ####[facility] ([facility])[address] [place], [place] [address]CCVY NITROGEN/CREATININE (MASS RATIO) IN SER/PLAS13.7NormalUniversSelect Medical OhioHealth Rehabilitation HospitalComment on above: Performed By: #### [id number] ####[facility] ([facility])[address] [place], [place] [address]Pcceb gap [Moles/Vol]14 mmol/LNormal7-20UnAv[facility] Health System [facility] HospitalComment on above:Performed By: #### [id number] ####[facility] ([facility])[address] [place] [address]Tuqmhqs [Mass/Vol]7.2 mg/dLLow8.6-10.3 [facility] HospitalComment on above:Performed By: #### [id number] ####[facility] ([facility])[address] [place] [address]Wvanjuhd [Moles/Vol]100 mmol/WPazltq19-311PycdhddkmdAvita Health System Bucyrus HospitalComment on above:Performed By: #### [id number] ####[facility] ([facility])[address] [place] [address]TP0 [Moles/Vol]19 mmol/QVxm87-60GlzskaeufoAvita Health System Bucyrus HospitalComment on above:Performed By: #### [id number] ####[facility] ([facility])[address] [place] [address]Vuxcolgkft [Mass/Vol]2.83 mg/dLHigh 0.70-1.30UnAv[facility] Health System [facility] HospitalComment on above:Performed By: #### [id number] ####[facility] ([facility])[address] [place] [address]QXKRCLVHDG FILTRATION RATE ML/MIN/1.73 SQ M.PSQCBTLWQ93.4 mL/min/1.73m*2Low>60.0UnAvita Health System [facility] HospitalComment on above:Result Comment: [facility]???s estimated glomerular filtration rate (eGFR) will [...] group of individuals. Performed By: #### [id number] ####[facility] ([facility])[address], [place] [address]Mmrwizw [Mass/Vol]128 mg/wLPuts99-449CcqxodroikAvita Health System Bucyrus HospitalComment on above:Performed By: #### [id number] ####[facility] ([facility])[address] [place] [address]Rbwqvmodb [Moles/Vol]4.2 mmol/LNormal 3.5-5.1UnAvita Health System [facility] HospitalComment on above:Performed By: #### [id number] ####[facility] ([facility])[address] [place] [address]Hxkqzz [Moles/Vol]129 mmol/XYrq510-630XykbqavulcAvita Health System Bucyrus HospitalComment on above:Performed By: #### [id number] ####[facility] ([facility])[address], [place] [address]Aalg nitrogen [Mass/Vol]40 mg/dLHigh7-25UnAv[facility] HospitalComment on above:Performed By: #### [id number] ####[facility] ([facility])[address], [place] [address]ZQPP NITROGEN/CREATININE (MASS RATIO) IN SER/PLAS14.1NormalUnAvita Health System Bucyrus HospitalComment on above: Performed By: #### [id number] ####[facility] ([facility])[address] [place] [address]VLYiy 19-42-5746Uuuouuleoqv distribution width (RBC) [Ratio]14.0 % Aeqhwa61.5-15.0UnAvita Health System Bu[facility] HospitalComment on above:Performed By: #### [id number] ####[facility] ([facility])[address] [place] [address] ERYTHROCYTE MEAN CORPUSCULAR HEMOGLOBIN CONCENTRATION (G/DL) BY KBSSRMWXG92.8 g/tJQkgtaz60.0-35.0UnAvita Health System Bu[facility] HospitalComment on above:Performed By: #### [id number] ####[facility] ([facility])[address], [place] [address]Vqpaoiegzz (Bld) [Volume fraction]29.3 %Low39.0-50.0UnAvita Health System [facility] HospitalComment on above:Performed By: #### [id number] ####[facility] ([facility])[address] [address]Dbqngunnrw (Bld) [Mass/Vol]10.2 g/dL Low13.0-17.0UnAvita Health System Bu[facility] HospitalComment on above:Performed By: #### [id number] ####[facility] ([facility])[address] [address]ZGZ (RBC) [Entitic mass]32.2 xtJbmnep55.0-33.0Un[facility] Comment on above:Performed By: #### [id number] ####[facility] ([facility])[address] [address]XMJ (RBC) [Entitic vol]92.4 hEIkvmbx13.0-98.0 [facility] HospitalComment on above:Performed By: #### [id number] ####[facility] ([facility])[address] [place] [address]DVKXPFOZE (10*3/UL) IN BLOOD AUTOMATED [id number] 10*3/oOXvupln592-901FldygospdyAvita Health System Bucyrus HospitalComment on above:Performed By: #### [id number] ####[facility] ([facility])[address] [place] [address]BDO (Bld) [#/Vol]3.17 10*6/uLLow 4.20-5.70UnAvita Health System Bu[facility] HospitalComment on above:Performed By: #### [id number] ####[facility] ([facility])[address] [place] [address]PUO (Bld) [#/Vol]6.84 10*3/uLNormal4.00-10.60UnAvita Health System [facility] HospitalComment on above:Performed By: #### [id number] ####[facility] ([facility])[address] [place] [address]FP-GKHAKDNKuv 44-45-1129Vvzubytfra (Bld) [Mass/Vol]10.9 g/dL NormalUnAvita Health System Bucyrus HospitalComment on above:Performed By: #### [id number] ####[facility] RESPIRAT[facility] [id number] [place] [address] USAOxygen saturation in Blood59.6 %NormalUnAvita Health System Bucyrus HospitalComment on above:Performed By: #### [id number] ####[facility] RESPIRAT[facility] [id number] [place] [address] USAOXYGENATED HEMOGLOBIN IN BLOOD58.7 %NormalUnAvita Health System Bucyrus HospitalComment on above:Performed By: #### [id number] ####[facility] RESPIRATORY [id number] [place] [address] USACREATININE, URINE, RANDOMon 63-58-7922Trwprvnbny (U) [Mass/Vol]83.0 mg/wWTgonph38-204QghhrnqyqaAvita Health System Bucyrus HospitalComment on above:Performed By: #### [id number] ####[facility] ([facility])[address], [place] [address]YZPYQPYQTvp 04-26-2025 Magnesium [Mass/Vol]2.0 mg/dLNormal1.9-2.7Un[facility] Comment on above:Performed By: #### [id number] ####[facility] ([facility])[address] [place], [place] [address]Zbgbdifpy [Mass/Vol]2.1 mg/dLNormal1.9-2.7 [facility] HospitalComment on above:Performed By: #### [id number] ####[facility] ([facility])[address] [place], [place] [address]Rbdaigqrv [Mass/Vol]1.8 mg/dLLow1.9-2.7UnAvita Health System Bu[facility] HospitalComment on above:Performed By: #### [id number] ####[facility] ([facility])[address] [place], [place] [address]TEKOPTDKSSgh 25-23-4740Ubzvivbsd [Mass/Vol]3.4 mg/dLNormal 2.5-5.0UnAvita Health System [facility] HospitalComment on above:Performed By: #### [id number] ####[facility] ([facility])[address] [place], [place] [address]Bfcwotley [Mass/Vol]2.8 mg/dLNormal2.5-5.0UnAvita Health System [facility] HospitalComment on above:Performed By: #### [id number] ####[facility] ([facility])[address] [place], [place] [address]Wbfmbxulv [Mass/Vol]2.6 mg/dLNormal2.5-5.0UnAvita Health System [facility] HospitalComment on above:Performed By: #### [id number] ####[facility] ([facility])[address] [place], [place] [address]RRBAJF, URINE, RANDOMon 60-11-5651Amwohu (U) [Moles/Vol]92 mmol/LNormalUnAvita Health System Bu[facility] HospitalComment on above:Performed By: #### [id number] ####[facility] ([facility])[address] [place], [place] [address]FLAS NITROGEN, URINEon 22-51-9605Bpot nitrogen (U) [Mass/Vol]237 mg/dLNormalUniVeterans Health AdministrationComment on above:Performed By: #### [id number] ####[facility] ([facility])[address] [place], [place] [address]PHRCQFAVAGsz 80-90-9638QDIOBUOZT, TOTAL PRESENCE IN URINE NegativeNormalNegativeUnAvita Health System Bucyrus HospitalComment on above:Order Comment: Microscopics not performed on urines with negative chemical reactions unless requested on original order.Performed By: #### [id number] ####[facility] ([facility])[address] [place], [place] [address]Drwxagg (U)ClearNormalClear [facility] HospitalComment on above:Order Comment: Microscopics not performed on urines with negative chemical reactions unless requested on original order.Performed By: #### [id number] ####[facility] ([facility])[address] [place], [place] [address]Jstck (U)Light-YellowNormalColorless, Yellow, Light-YellowUnAvita Health System Bucyrus HospitalComment on above:Order Comment: Microscopics not performed on urines with negative chemical reactions unless requested on original order.Performed By: #### [id number] ####[facility] ([facility])[address] [place], [place] [address]Soiprsj (U) [Mass/Vol]250 mg/dL AbnormalNormalUniversSelect Medical OhioHealth Rehabilitation HospitalComment on above:Order Comment: Microscopics not performed on urines with negative chemical reactions unless requested on original order.Performed By: #### [id number] ####[facility] ([facility])[address] [place], [place] [address]TASFZSFIPB PRESENCE IN URINENegative NormalNegativeFlower HospitalComment on above:Order Comment: Microscopics not performed on urines with negative chemical reactions unless requested on original order.Performed By: #### [id number] ####[facility] ([facility])[address] [place], [place] [address]Xlaukbu Ql (U)NegativeNormalNegative [facility] HospitalComment on above:Order Comment: Microscopics not performed on urines with negative chemical reactions unless requested on original order.Performed By: #### [id number] ####[facility] ([facility])[address] [place], [place] [address]KLBOWNCYT ESTERASE PRESENCE IN URINE BY TEST STRIP NegativeHermann Area District HospitalalNegativeFlower HospitalComment on above:Order Comment: Microscopics not performed on urines with negative chemical reactions unless requested on original order.Performed By: #### [id number] ####[facility] ([facility])[address] [place], [place] [address]BFXMVHD PRESENCE IN URINENegative NormalNegativeFlower HospitalComment on above:Order Comment: Microscopics not performed on urines with negative chemical reactions unless requested on original order.Performed By: #### [id number] ####[facility] ([facility])[address] [place], [place] [address]oE (U)5.0 [pH]Normal5.0-8.0UnAvita Health System Bucyrus HospitalComment on above:Order Comment: Microscopics not performed on urines with negative chemical reactions unless requested on original order.Performed By: #### [id number] ####[facility] ([facility])[address] [address]Vnzerxh (U) [Mass/Vol]NegativeNormalNegative [facility] HospitalComment on above:Order Comment: Microscopics not performed on urines with negative chemical reactions unless requested on original order.Performed By: #### [id number] ####[facility] ([facility])[address] [address]Aalngygx gravity (U) [Rel density]1.013Normal 1.010-1.030UnAvita Health System Bucyrus HospitalComment on above:Order Comment: Microscopics not performed on urines with negative chemical reactions unless requested on original order.Performed By: #### [id number] ####[facility] ([facility])[address], [place] [address]EAKQXGOVDQNV (MG/DL) IN URINENormal NormalNormalUniVeterans Health AdministrationComment on above:Order Comment: Microscopics not performed on urines with negative chemical reactions unless requested on original order.Performed By: #### [id number] ####[facility] ([facility])[address] [place] [address]pu 38-75-271893IgndluLvxexlabpl of Toledo Medical CenterBASIC METABOLIC PANELon 51-24-5296Sbouz gap [Moles/Vol]12 mmol/LNormal7-20UnAvita Health System [facility] HospitalComment on above:Performed By: #### [id number] ####[facility] ([facility])[address] [place] [address] Calcium [Mass/Vol]7.1 mg/dLLow8.6-10.3UnAvita Health System [facility] HospitalComment on above:Performed By: #### [id number] ####[facility] ([facility])[address], [place] [address]Dkwkkqur [Moles/Vol]99 mmol/BUghznt04-917ImldtynwerAvita Health System Bucyrus HospitalComment on above:Performed By: #### [id number] ####[facility] ([facility])[address] [place] [address]LX9 [Moles/Vol]24 mmol/BNpehpd04-87 [facility] HospitalComment on above:Performed By: #### [id number] ####[facility] ([facility])[address] [place] [address]Xmuhcltsel [Mass/Vol]2.96 mg/dLHigh0.70-1.30UnAvita Health System [facility] HospitalComment on above:Performed By: #### [id number] ####[facility] ([facility])[address] [place] [address]FVFNDGJXUE FILTRATION RATE ML/MIN/1.73 SQ M.TJXEXMYVV98.2 mL/min/1.73m*2Low>60.0UnAvita Health System Bucyrus HospitalComment on above:Result Comment: [facility]???s estimated glomerular filtration rate (eGFR) will [...] anyone group of individuals.Performed By: #### [id number] ####[facility] ([facility])[address] [place] [address]Eyeekes [Mass/Vol]130 mg/tECzmx32-264ZaogzrovyoAvita Health System Bucy[facility] HospitalComment on above:Performed By: #### [id number] ####[facility] ([facility])[address] [place] [address]Cjqthiatr [Moles/Vol]3.4 mmol/L Low3.5-5.1UnAvita Health System [facility] HospitalComment on above:Performed By: #### [id number] ####[facility] ([facility])[address] [place], [place] [address]Rkyjji [Moles/Vol]132 mmol/XFyo781-761DlfarhygthAvita Health System Bucyrus HospitalComment on above:Performed By: #### [id number] ####[facility] ([facility])[address] [place], [place] [address]Gqlw nitrogen [Mass/Vol]40 mg/dLHigh7-25UnAv[facility] HospitalComment on above:Performed By: #### [id number] ####[facility] ([facility])[address] [place], [place] [address]HTCU NITROGEN/CREATININE (MASS RATIO) IN SER/PLAS13.5NormalUniversSelect Medical OhioHealth Rehabilitation HospitalComment on above: Performed By: #### [id number] ####[facility] ([facility])[address] [place], [place] [address]Tfmpv gap [Moles/Vol]12 mmol/LNormal7-20UnAvita [facility] HospitalComment on above:Performed By: #### [id number] ####[facility] ([facility])[address] [place], [place] [address]Eomprep [Mass/Vol]7.5 mg/dLLow8.6-10.3 [facility] HospitalComment on above:Performed By: #### [id number] ####[facility] ([facility])[address] [place], [place] [address]Lksenlkw [Moles/Vol]99 mmol/ZUkmuso23-613XlfdemtrxeAvita Health System Bucyrus HospitalComment on above:Performed By: #### [id number] ####[facility] ([facility])[address] [place], [place] [address]BH0 [Moles/Vol]24 mmol/CPkknti70-28CsbuqaqgbhAvita Health System Bucyrus HospitalComment on above:Performed By: #### [id number] ####[facility] ([facility])[address] [place], [place] [address]Djuixsytnu [Mass/Vol]2.57 mg/dLHigh 0.70-1.30UnAvita Health System [facility] HospitalComment on above:Performed By: #### [id number] ####[facility] ([facility])[address] [place] [address]WUNEFXCYOU FILTRATION RATE ML/MIN/1.73 SQ M.BGOSNKENF35.2 mL/min/1.73m*2Low>60.0UnAvita Health System Bucyrus HospitalComment on above:Result Comment: [facility]???s estimated glomerular filtration rate (eGFR) will [...] group of individuals. Performed By: #### [id number] ####[facility] ([facility])[address] [place] [address]Cjkyigt [Mass/Vol]125 mg/fJSwol58-675BmfjryklogAvita Health System Bucyrus HospitalComment on above:Performed By: #### [id number] ####[facility] ([facility])[address] [place] [address]Zjiexcpsl [Moles/Vol]3.7 mmol/LNormal 3.5-5.1UnAvita Health [facility] HospitalComment on above:Performed By: #### [id number] ####[facility] ([facility])[address] [place] [address]Blmizm [Moles/Vol]131 mmol/EQzk618-834SnjkqlgpmjAvita Health System Bucyrus HospitalComment on above:Performed By: #### [id number] ####[facility] ([facility])[address], [place] [address]Xspe nitrogen [Mass/Vol]33 mg/dLHigh7-25UnAvita [facility] HospitalComment on above:Performed By: #### [id number] ####[facility] ([facility])[address], [place] [address]FDUI NITROGEN/CREATININE (MASS RATIO) IN SER/PLAS12.8NormalUniversSelect Medical OhioHealth Rehabilitation HospitalComment on above: Performed By: #### [id number] ####[facility] ([facility])[address] [address]NWAjo 15-35-9717Lhqiyzpassy distribution width (RBC) [Ratio]13.9 % Ylnrlt31.5-15.0UnAvita Health System Bucyrus HospitalComment on above:Performed By: #### [id number] ####[facility] ([facility])[address] [place] [address] ERYTHROCYTE MEAN CORPUSCULAR HEMOGLOBIN CONCENTRATION (G/DL) BY HTIWNFYPC97.4 g/aELmixak36.0-35.0UnAvita Health System Bucyrus HospitalComment on above:Performed By: #### [id number] ####[facility] ([facility])[address] [place] [address]Cpwkibqbep (Bld) [Volume fraction]30.2 %Low39.0-50.0UnAvita Health System Bucy[facility] HospitalComment on above:Performed By: #### [id number] ####[facility] ([facility])[address] [place], [place] [address]Slhduiskqo (Bld) [Mass/Vol]10.4 g/dL Low13.0-17.0UnAvita Health System Bucy[facility] HospitalComment on above:Performed By: #### [id number] ####[facility] ([facility])[address] [place] [address]AEH (RBC) [Entitic mass]32.1 baAvmkyk09.0-33.0UnAv[facility] Hospital Comment on above:Performed By: #### [id number] ####[facility] ([facility] [place] [address]LAR (RBC) [Entitic vol]93.2 yMDhhhvk20.0-98.0 [facility] HospitalComment on above:Performed By: #### [id number] ####[facility] ([facility])[address] [place] [address]HYOHTRLWX (10*3/UL) IN BLOOD AUTOMATED [id number] 10*3/tBKawwxx875-861KdzjkuhloaAvita Health System Bucyrus HospitalComment on above:Performed By: #### [id number] ####[facility] ([facility])[place] [place] [address]KMZ (Bld) [#/Vol]3.24 10*6/uLLow 4.20-5.70UnAvita Health System Bucyrus HospitalComment on above:Performed By: #### [id number] ####[facility] ([facility])[address] [place] [address]BUF (Bld) [#/Vol]6.72 10*3/uLNormal4.00-10.60UnAvita Health System Bucyrus HospitalComment on above:Performed By: #### [id number] ####[facility] ([facility])[address] [place] [address]DMUVXRCol 31-05-1154MITFDORWscwmeTztdujwkzz [facility] DaytonMAGNESIUMon 10-45-4523Kqdocyqbh [Mass/Vol]1.9 mg/dLNormal1.9-2.7 [facility] HospitalComment on above:Performed By: #### [id number] ####[facility] ([facility])Renetta SERRANOCRICHTON REHABILITATION CENTERPorshaM[place], [place] [address]FKNCBBEMUAub 16-08-9943Mcotmjgcp [Mass/Vol]3.5 mg/dLNormal2.5-5.0UnAvita Health System Bucyrus HospitalComment on above:Performed By: #### [id number] ####[facility] ([facility])Renetta [place], [place] [address]to [phone] patient is Moderately Stable - Low risk of patient condition declining or worsening The patient's goals for the shift include comfort The clinical goals for the shift include VSS, safetyNormalUniversity [facility] DaytonANESon 16-01-2630USLQHlsgfuGzibqlfrft [facility] BASIC METABOLIC PANELon 63-00-4696Ojqvr gap [Moles/Vol]16 mmol/LNormal7-20 [facility] HospitalComment on above:Performed By: #### [id number] ####[facility] ([facility])[address] [place] [address]Cvjkoll [Mass/Vol]8.0 mg/dLLow8.6-10.3UnAvita Health System Bucyrus HospitalComment on above:Performed By: #### [id number] ####[facility] ([facility])[address] [place] [address]Osopwnna [Moles/Vol]100 mmol/JLcohww93-517HgiabfzlbdAvita Health System Bucyrus HospitalComment on above:Performed By: #### [id number] ####[facility] ([facility])[address], [place] [address]BY5 [Moles/Vol]19 mmol/LUuo09-19 [facility] HospitalComment on above:Performed By: #### [id number] ####[facility] ([facility])[address], [place] [address]Byaijjkewe [Mass/Vol]1.45 mg/dLHigh0.70-1.30UnAvita Health System Bucyrus HospitalComment on above:Performed By: #### [id number] ####[facility] ([facility])[address], [place] [address]HKYJEYQUTP FILTRATION RATE ML/MIN/1.73 SQ M.XZJEDTXFT05.2 mL/min/1.73m*2Low>60.0UnAvita Health System Bucyrus HospitalComment on above:Result Comment: [facility]???s estimated glomerular filtration rate (eGFR) will [...] anyone group of individuals.Performed By: #### [id number] ####[facility] ([facility] [place], [place] [address]Uvxqgdq [Mass/Vol]122 mg/mFMgnx33-344CdxrruuqbvAvita Health System Bucyrus HospitalComment on above:Performed By: #### [id number] ####[facility] ([facility])[address] [place] [address]Lynnwucti [Moles/Vol]3.9 mmol/L Normal3.5-5.1UnAvita Health System Bucyrus HospitalComment on above:Performed By: #### [id number] ####[facility] ([facility])[address] [place] [address] Sodium [Moles/Vol]131 mmol/AAbd455-646MwukicafnyAvita Health System Bucyrus HospitalComment on above:Performed By: #### [id number] ####[facility] ([facility])[address] [place], [place] [address]Pvzl nitrogen [Mass/Vol]24 mg/dLNormal7-25UnAvita Health System Bucyrus HospitalComment on above:Performed By: #### [id number] ####[facility] ([facility])[address] [place], [place] [address]ZIBK NITROGEN/CREATININE (MASS RATIO) IN SER/PLAS16.6NormalUniversSelect Medical OhioHealth Rehabilitation HospitalComment on above: Performed By: #### [id number] ####[facility] ([facility])[address] [place], [place] [address]MHDqr 51-64-5498Ohthhxrrcbs distribution width (RBC) [Ratio]13.9 % Znfcjr22.5-15.0UnAvita Health System Bucyrus HospitalComment on above:Performed By: #### [id number] ####[facility] ([facility])[address] [place] [address] ERYTHROCYTE MEAN CORPUSCULAR HEMOGLOBIN CONCENTRATION (G/DL) BY KLJAUVDNG93.8 g/kHLdtqmi63.0-35.0UnAvita Health System Bucyrus HospitalComment on above:Performed By: #### [id number] ####[facility] ([facility])[address] [place], [place] [address]Canjocjors (Bld) [Volume fraction]33.1 %Low39.0-50.0UnAvita Health System Bucyrus HospitalComment on above:Performed By: #### [id number] ####[facility] ([facility])[address] [place] [address]Jaompbirmy (Bld) [Mass/Vol]11.2 g/dL Low13.0-17.0UnAvita Health System Bucyrus HospitalComment on above:Performed By: #### [id number] ####[facility] ([facility])[address] [place] [address]WWW (RBC) [Entitic mass]31.8 qeOjipjs14.0-33.0UnAvita Health [facility] Hospital Comment on above:Performed By: #### [id number] ####[facility] ([facility])[address] [place] [address]WJW (RBC) [Entitic vol]94.0 yREorevu53.0-98.0 [facility] HospitalComment on above:Performed By: #### [id number] ####[facility] ([facility])[address] [place] [address]MVNUZZSCA (10*3/UL) IN BLOOD AUTOMATED FKRQN830 10*3/pQQtkyfe956-394CophzigkxtAvita Health System Bucyrus HospitalComment on above:Performed By: #### [id number] ####[facility] ([facility])[address] [place] [address]AXL (Bld) [#/Vol]3.52 10*6/uLLow 4.20-5.70UnAvita Health System Bucyrus HospitalComment on above:Performed By: #### [id number] ####[facility] ([facility])[address] [place] [address]VDD (Bld) [#/Vol]5.70 10*3/uLNormal4.00-10.60UnAvita Health System Bucyrus HospitalComment on above:Performed By: #### [id number] ####[facility] ([facility])[address] [place] [address]FRot 84-47-2373BAWdkvfdGvvrpxjnor of [facility] CenterHP H&P reviewed. The patient was examined and there are no changes to the H&P. He continues to be hypotensive. We will proceed with right heart catheterization as requested by the primary cardiology service.NormalUnAvita Health System Bucyrus HospitalLIPID PANELon 80-49-9115AEWT/HDL3.4 mg/dLNormalUniVeterans Health AdministrationComment on above:Performed By: #### [id number] ####[facility] ([facility])[address] [place] [address]Qdzuzzevdmw [Mass/Vol]98 mg/dLLow 120-200UnAvita Health System Bucyrus HospitalComment on above:Performed By: #### [id number] ####[facility] ([facility])[address] [place]GIECRIC[place], [place] [address]Zuhagyjtq [Mass/Vol]75 mg/dLNormal<150UnAvita Health System Bucyrus HospitalComment on above: Result Comment: TRIGLYCERIDE REFERENCE RANGE:20 YEARS AND OLDER CARDIOVASCULAR RISKLESS THAN 150 mg/dL LOW YVFR424 TO 199 mg/dL BORDERLINE ANAP694 mg/dL AND GREATER HIGH RISKPerformed By: #### [id number] ####[facility] ([facility])[address] [place], [place] [address]Gprjmosrd [Mass/Vol]54 mg/dLNormal0-160UnAvita Health System Bucyrus HospitalComment on above:Performed By: #### [id number] ####[facility] ([facility])[address] MAGGIECRICHTON [place], [place] [address]Nzmxsslvv [Mass/Vol]29 mg/pXQzbkoz28-57AtsiltnqsxAvita Health System Bucyrus HospitalComment on above:Performed By: #### [id number] ####[facility] ([facility])[address] [place] [address] NON HDL CHOL. (LDL+VLDL)69NormalUniversSelect Medical OhioHealth Rehabilitation HospitalComment on above:Performed By: #### [id number] ####[facility] ([facility])[address] MAGGIECRICHTON [place], [place] [address]IBPLI VLDL-C15 mg/dLNormal0-40UnAvita Health System Bucyrus HospitalComment on above:Performed By: #### [id number] ####[facility] ([facility])[address] [place] [address]FBWAGYNAFwk 01-27-1481Pytobaecq [Mass/Vol]1.9 mg/dLNormal1.9-2.7UnAvita Health System Bucyrus HospitalComment on above:Performed By: #### [id number] ####[facility] ([facility])[address] [place] [address]68rc 72-42-088488MzqjxbRcurczvics [facility]30 NormalUnAvita Health System Bucyrus HospitalC-REACTIVE PROTEINon 5C REACTIVE PROTEIN (MG/L) IN SER/PLAS39.4 mg/LHigh<=5.0UnAvita Health System Bucyrus HospitalComment on above:Result Comment: Testing performed using a new methodology, turbidimetry. Normal ranges have been updated. Old normal range was <8 mg/L.Performed By: #### [id number] ####[facility] ([facility])[address] [place], [place] [address]YGV WITH AUTO DIFFERENTIALon 46-40-7626Yrosowzps (Bld) [#/Vol]0.03 10*3/uLNormal0.00-0.20UnAvita Health System Bucyrus HospitalComment on above:Performed By: #### [id number] ####[facility] ([facility])[address] [place], [place] [address]Xywnqxnqe/100 WBC (Bld)0.5 %Normal0.0-1.0UnAvita Health System Bucyrus HospitalComment on above:Performed By: #### [id number] ####[facility] ([facility])[address] [place], [place] [address]Plxczmymlkj (Bld) [#/Vol]0.10 10*3/uL Normal0.00-0.50UnAvita Health System Bucyrus HospitalComment on above:Performed By: #### [id number] ####[facility] ([facility])[address] [place] [address] Eosinophils/100 WBC (Bld)1.8 %Normal0.0-6.0Un[facility] Hospital Comment on above:Performed By: #### [id number] ####[facility] ([facility])[address] [place], [place] [address]Uuxppydyimz distribution width (RBC) [Ratio]13.9 % Jhvoff60.5-15.0UnAvita Health System Bucyrus HospitalComment on above:Performed By: #### [id number] ####[facility] ([facility])[address] [place] [address] ERYTHROCYTE MEAN CORPUSCULAR HEMOGLOBIN CONCENTRATION (G/DL) BY EJMQTNISU74.0 g/sLLrfdgc20.0-35.0UnAvita Health System Bucyrus HospitalComment on above:Performed By: #### [id number] ####[facility] ([facility])[address] [place], [place] [address]Wvejhbjdzi (Bld) [Volume fraction]35.0 %Low39.0-50.0UnAvita Health System Bucyrus HospitalComment on above:Performed By: #### [id number] ####[facility] ([facility])[address] [place], [place] [address]Mylgugzjaq (Bld) [Mass/Vol]11.9 g/dL Low13.0-17.0UnAvita Health System Bucyrus HospitalComment on above:Performed By: #### [id number] ####[facility] ([facility])[address] [place] [address] Immature granulocytes (Bld) [#/Vol]0.02 10*3/uLNormal0.00-0.20UnAvita Health System Bucyrus HospitalComment on above:Performed By: #### [id number] ####[facility] ([facility])[address] [place], [place] [address]Gkvlpusj granulocytes/100 WBC (Bld)0.4 %Normal0.0-1.0UnAvita Health System Bucyrus HospitalComment on above: Performed By: #### [id number] ####[facility] ([facility])[address] [place], [place] [address]Syenpdxdair (Bld) [#/Vol]1.26 10*3/uLNormal1.20-4.00 [facility] HospitalComment on above:Performed By: #### [id number] ####[facility] ([facility])[address] [place] [address]Mmaqugbglki/100 WBC (Bld)22.5 %Ptfvke30.0-45.0UnAvita Health System Bucyrus HospitalComment on above:Performed By: #### [id number] ####[facility] ([facility])[address] [place] [address]ZHF (RBC) [Entitic mass]31.9 vuBfljwf85.0-33.0UnAvita Health System Bucyrus HospitalComment on above:Performed By: #### [id number] ####[facility] ([facility])[address] [place] [address]NKB (RBC) [Entitic vol] 93.8 iGYevlcq57.0-98.0UnAvita Health System Bucyrus HospitalComment on above: Performed By: #### [id number] ####[facility] ([facility])[address] [place], [place] [address]Wqqyggsct (Bld) [#/Vol]0.99 10*3/uLNormal0.10-1.00UnAvita Health System Bucyrus HospitalComment on above:Performed By: #### [id number] ####[facility] ([facility])[address] [address]Osaapghjq/100 WBC (Bld) 17.7 %High5.0-12.0UnAvita Health System Bucyrus HospitalComment on above:Performed By: #### [id number] ####[facility] (BEAKER)[address] [place], [place] [address]Vqlkwfexgvj (Bld) [#/Vol]3.20 10*3/uLNormal1.60-7.60UnAvita Health System Bucyrus HospitalComment on above:Performed By: #### [id number] ####[facility] ([facility])[address], [place] [address]Mfatntmivhs/100 WBC (Bld)57.1 %Normal 40.0-72.0UnAvita Health System Bucyrus HospitalComment on above:Performed By: #### [id number] ####[facility] ([facility])[address] [address]JTNN (PER 100 WBCS) BY AUTOMATED COUNT0.0 %Tyhxxi1CalzapxiduAvita Health System Bucyrus Hospital Comment on above:Performed By: #### [id number] ####[facility] ([facility])[address] [address]VHAQWLWRS (10*3/UL) IN BLOOD AUTOMATED DPPWC390 10*3/qEVxkbmh593-702BzdshdxahsAvita Health System Bucyrus HospitalComment on above: Performed By: #### [id number] ####[facility] ([facility])[address] [address]NXE (Bld) [#/Vol]3.73 10*6/uLLow4.20-5.70UnAvita Health System Bucyrus HospitalComment on above:Performed By: #### [id number] ####[facility] ([facility])[address] [place] [address]PPG (Bld) [#/Vol]5.60 10*3/uLNormal 4.00-10.60UnAvita Health System Bucyrus HospitalComment on above:Performed By: #### [id number] ####[facility] ([facility])[address] [place] [address] COMPREHENSIVE METABOLIC PANELon 71-12-3420Ytrajtt [Mass/Vol]3.7 g/dLNormal 3.5-5.7UnAvita Health System Bucyrus HospitalComment on above:Performed By: #### [id number] ####[facility] ([facility])[address], [place] [address]MMU [Catalytic activity/Vol]48 U/NJpybjo72-459WjxxiheqxsFlower Hospital Comment on above:Performed By: #### [id number] ####[facility] ([facility])[address], [place] [address]IBL [Catalytic activity/Vol]18 U/LNormal7-52 [facility] HospitalComment on above:Performed By: #### [id number] ####[facility] ([facility])[address], [place] [address]Hebot gap [Moles/Vol]13 mmol/LNormal7-20UnAvita Health System Bucyrus HospitalComment on above:Performed By: #### [id number] ####[facility] ([facility])[address] [place] [address]XLA [Catalytic activity/Vol]34 U/RGhfzvf91-20ZjscztkdbrAvita Health System Bucyrus HospitalComment on above:Performed By: #### [id number] ####[facility] ([facility])[address], [place] [address]Hupyrwgzc [Mass/Vol]0.5 mg/dL Normal0.3-1.0UnAvita Health System Bucyrus HospitalComment on above:Performed By: #### [id number] ####[facility] ([facility])[address] [place] [address] Calcium [Mass/Vol]8.4 mg/dLLow8.6-10.3UnAvita Health System Bucyrus HospitalComment on above:Performed By: #### [id number] ####[facility] ([facility])[address], [place] [address]Jxeivvjp [Moles/Vol]99 mmol/KOrvmre36-393AogebthfypAvita Health System Bucyrus HospitalComment on above:Performed By: #### [id number] ####[facility] ([facility])[address], [place] [address]ZH0 [Moles/Vol]26 mmol/XOvpadl13-95 [facility] HospitalComment on above:Performed By: #### [id number] ####[facility] ([facility])[address] [place], [place] [address]Crnegkkelf [Mass/Vol]1.11 mg/dLNormal0.70-1.30UnAvita Health System Bucyrus HospitalComment on above:Performed By: #### [id number] ####[facility] ([facility])[address] [place], [place] [address]DDVYQPBVUC FILTRATION RATE ML/MIN/1.73 SQ M.BCBZWOUQD13.9 mL/min/1.73m*2Normal>60.0UnAvita Health System Bucyrus HospitalComment on above: Result Comment: [facility]???s estimated glomerular filtration rate (eGFR) will [...] anyone group of individuals.Performed By: #### [id number] ####[facility] ([facility])[address] [place], [place] [address]Eztrizk [Mass/Vol]125 mg/uVFeau61-295OaiymoghaaAvita Health System Bucyrus HospitalComment on above:Performed By: #### [id number] ####[facility] ([facility])[address] [place], [place] [address]Zbwpolsuv [Moles/Vol]4.1 mmol/L Normal3.5-5.1UnAvita Health System Bucyrus HospitalComment on above:Performed By: #### [id number] ####[facility] ([facility])[address] [place] [address] Protein [Mass/Vol]6.8 g/dLNormal6.0-8.3Un[facility] Comment on above:Performed By: #### [id number] ####[facility] ([facility])[address] [place], [place] [address]Xcidcc [Moles/Vol]134 mmol/AMld024-929NrviepcppzAvita Health System Bucyrus HospitalComment on above:Performed By: #### [id number] ####[facility] ([facility])[address] [place], [place] [address]Wjev nitrogen [Mass/Vol] 18 mg/dLNormal7-25UnAvita Health System Bucyrus HospitalComment on above:Performed By: #### [id number] ####[facility] ([facility])[address] [place] [address] UREA NITROGEN/CREATININE (MASS RATIO) IN SER/PLAS16.2NormalUnAvita Health System Bucyrus HospitalComment on above:Performed By: #### [id number] ####[facility] ([facility])[address], [place] [address]XE CERVICAL SPINE WO IV CONTRASTon 06-09-5493AS CERVICAL SPINE WO IV CONTRASTInvalid Interpretation CodeUnAvita Health System Bucyrus HospitalCT HEAD WO IV CONTRASTon [id number] HEAD WO IV CONTRASTInvalid Interpretation CodeFlower HospitalCTA CHEST W IV CONTRASTon 54-43-8675UXH CHEST W IV CONTRASTNormalUniversSelect Medical OhioHealth Rehabilitation HospitalMAGNESIUMon 87-43-3971Ndrgqkfbr [Mass/Vol]1.6 mg/dLLow1.9-2.7 [facility] HospitalComment on above:Performed By: #### [id number] ####[facility] ([facility])[address] [place], [place] [address]AROCYENPjc 17-93-0808JFNUSRVKOunelmUztlqmeafu of [facility] [facility] Qpdaxd20dh NormalUnAvita Health System Bucyrus Hospital30The patient is Moderately Stable - Low risk of patient condition declining or worsening The patient's goals for the shift include comfort, rest The clinical goals for the shift include stable hemodynamicsNormalUniversSelect Medical OhioHealth Rehabilitation Hospital30on 26-61-614739XsefirNhtnuwtpic [facility] 30NormalUniversity [facility]30on 16-66-890907RpupvwJybjiewzdb [facility]30NormalUniversSelect Medical OhioHealth Rehabilitation HospitalBASIC METABOLIC PANELon 96-38-6560Bsbfn gap [Moles/Vol]12 mmol/LNormal7-20UnAvita Health System Bucyrus HospitalComment on above:Performed By: #### [id number] ####[facility] ([facility])[address] [place], [place] [address]Inqarpd [Mass/Vol]8.8 mg/dLNormal 8.6-10.3UnAvita Health System Bucyrus HospitalComment on above:Performed By: #### [id number] ####[facility] ([facility])[address] [place] [address]Bbqljzar [Moles/Vol]93 mmol/GPwk73-347YqyjwcvmvvAvita Health System Bucyrus HospitalComment on above:Performed By: #### [id number] ####[facility] ([facility])[address] [place] [address]LE1 [Moles/Vol]26 mmol/UQgldyd15-30LtqgmesplkAvita Health System Bucyrus HospitalComment on above:Performed By: #### [id number] ####[facility] ([facility])[address] [place] [address]Nepsvuxsuf [Mass/Vol]0.94 mg/dLNormal 0.70-1.30UnAvita Health System Bucyrus HospitalComment on above:Performed By: #### [id number] ####[facility] ([facility])[address] [place] [address]FBUXGJMMEM FILTRATION RATE ML/MIN/1.73 SQ M.CJKXDHKTP28.8 mL/min/1.73m*2Normal>60.0 [facility] HospitalComment on above:Result Comment: [facility]???s estimated glomerular filtration rate (eG FR) [...] group of individuals. Performed By: #### [id number] ####[facility] ([facility])[address] [place] [address]Cbtgjhm [Mass/Vol]127 mg/eWHjoc48-183SeinoeebwsAvita Health System Bucyrus HospitalComment on above:Performed By: #### [id number] ####[facility] ([facility])[address] [place], [place] [address]Upfbzoyjo [Moles/Vol]3.9 mmol/LNormal 3.5-5.1UnAvita Health System Bucyrus HospitalComment on above:Performed By: #### [id number] ####[facility] ([facility])[address] [place] [address]Xwapiq [Moles/Vol]127 mmol/PDuz631-277UbunqwyxvkAvita Health System Bucyrus HospitalComment on above:Performed By: #### [id number] ####[facility] ([facility])[address] [place] [address]Hoym nitrogen [Mass/Vol]16 mg/dLNormal7-25UnAvita Health System Bucyrus HospitalComment on above:Performed By: #### [id number] ####[facility] ([facility])[address] [place], [place] [address]OTHT NITROGEN/CREATININE (MASS RATIO) IN SER/PLAS17.0NormalUniversSelect Medical OhioHealth Rehabilitation HospitalComment on above: Performed By: #### [id number] ####[facility] ([facility])[address] [place] [place] [address]MRGHZ CULTUREon [id number] identified Cx Nom (Bld)No growth at 5 daysNormalUniVeterans Health AdministrationComment on above:Performed By: #### [id number] ####[facility] ([facility])[address] [place] [address] Order Comment: From a different site than #1.CBCon [id number] distribution width (RBC) [Ratio]13.9 %Ynpowe39.5-15.0UnAvita Health System Bucyrus HospitalComment on above:Performed By: #### [id number] ####[facility] ([facility])[address] [facility] [place] [address]PKSPXZBCZBF MEAN CORPUSCULAR HEMOGLOBIN CONCENTRATION (G/DL) BY SWCTIOVGC72.6 g/tBFrqz49.0-35.0UnAvita Health System Bucyrus HospitalComment on above:Performed By: #### [id number] ####[facility] ([facility])[address] [place] [address]Jynyrvgfad (Bld) [Volume fraction]34.0 %Low39.0-50.0UnAvita Health System Bucyrus HospitalComment on above: Performed By: #### [id number] ####[facility] ([facility])[address] [place] [address]Nwrqiansjq (Bld) [Mass/Vol]12.1 g/dLLow13.0-17.0UnAvita Health System Bucyrus HospitalComment on above:Performed By: #### [id number] ####[facility] ([facility])[address] [place] [address]WUD (RBC) [Entitic mass] 32.3 ycEppsih14.0-33.0UnAvita Health System Bucyrus HospitalComment on above: Performed By: #### [id number] ####[facility] ([facility])[address] [place] [address]UBL (RBC) [Entitic vol]90.7 lHOkmynl39.0-98.0UnAvita Health System Bucyrus HospitalComment on above:Performed By: #### [id number] ####[facility] ([facility])[address] [place] [address]QVFUKTVEB (10*3/UL) IN BLOOD AUTOMATED [id number] 10*3/rRBfywvd324-875YkvlpeawvwAvita Health System Bucyrus Hospital Comment on above:Performed By: #### [id number] ####[facility] ([facility])[address] [place] [address]SBG (Bld) [#/Vol]3.75 10*6/uLLow4.20-5.70UnAvita Health System Bucyrus HospitalComment on above:Performed By: #### [id number] ####[facility] ([facility])[address] [place] [address]UJT (Bld) [#/Vol]7.50 10*3/uLNormal4.00-10.60UnAvita Health System Bucyrus HospitalComment on above: Performed By: #### [id number] ####[facility] ([facility])[address] [place], [place] [address]FUTKTJVVws 04-43-6790OIWTNMUW (UG/DL) IN SER/PLAS11.2 ug/dL Normal6-23UnAvita Health System Bucyrus HospitalComment on above:Performed By: #### [id number] ####[facility] ([facility])[address] [place] [address] OSMOLALITYon 43-40-8070YMRULHBXSS HLPSISBN054 mOsm/bbXtuqud177-483DettagkfhbAvita Health System Bucyrus HospitalComment on above:Result Comment: Test Performed by [employer] [address] [place] [id number] - Released 04/20/2025 19:48Performed By: #### [id number] ####[facility] [id number] [place], [place] [address]bk 40-64-240712Pgf patient is Moderately Stable - Low risk of patient condition declining or worsening The patient's goals for the shift include Neck/Chest pain The clinical goals for the shift include stable vital signsNormalUniversSelect Medical OhioHealth Rehabilitation HospitalANAon 48-06-3431AVO TITER<1:40Normal<=1:40UnAvita Health System Bucyrus HospitalComment on above:Result Comment: Test performed using DAVID IFA COLLIN Hep-2 Test, a pre-standardized assay designed forthe qualitative and semi-quantitative detection of antinuclear antibodies.Performed By: #### [id number] ####[facility] ([facility])[address] [place], [place] [address]KXYItb 84-25-9393AVLVSvheiwTpbzzexdmr of [facility] Medical CenterB-TYPE NATRIURETIC PEPTIDEon 86-27-5501Wzftmhecgwz peptide B (Bld) [Mass/Vol]254 pg/mLHigh0-100 [facility] HospitalComment on above:Performed By: #### [id number] ####[facility] ([facility])[address] [place], [place] [address]TIJW FLUID CELL DIFFERENTIALon 03-21-6912WYXGPKRKZ TOTAL PER COUNTED LEUKOCYTES IN BODY FLUID BY MANUAL COUNTNormalUniversSelect Medical OhioHealth Rehabilitation HospitalComment on above:Order Comment: Differential performed on cytospinPerformed By: #### [id number] ####[facility] ([facility])[address] [place], [place] [address]IYLUJ COUNTED TOTAL (#) IN BODY BSRXU526RyfqfiXdppqblpmoVeterans Health AdministrationCommymichigan medical center west branch on above:Order Comment: Differential performed on cytospinPerformed By: #### [id number] ####[facility] ([facility])[address] [place], [place] [address]FASLUSENKOY TOTAL PER COUNTED LEUKOCYTES IN BODY FLUID BY MANUAL COUNTNormalUniversSelect Medical OhioHealth Rehabilitation HospitalCommymichigan medical center west branch on above:Order Comment: Differential performed on cytospin Performed By: #### [id number] ####[facility] ([facility])[address] [place], [place] [address]QLPFWYKCWDE TOTAL PER COUNTED LEUKOCYTES IN BODY FLUID BY MANUAL CBINI4UvktjmLqppvdjzueVeterans Health AdministrationCommymichigan medical center west branch on above:Order Comment: Differential performed on cytospinPerformed By: #### [id number] ####[facility] ([facility])[address] [place], [place] [address]IUZYGQCMCFF CELLS TOTAL PER COUNTED LEUKOCYTES IN BODY FLUID BY MANUAL SQHU1UshxwrTfnmhsmpjcSelect Medical OhioHealth Rehabilitation HospitalCommymichigan medical center west branch on above:Order Comment: Differential performed on cytospin Performed By: #### [id number] ####[facility] ([facility])[address] [place], [place] [address]NLEWWWQNG+MACROPHAGES TOTAL PER COUNTED LEUKOCYTES IN BODY FLUID BY MANUALNormalUniversSelect Medical OhioHealth Rehabilitation HospitalCommymichigan medical center west branch on above:Order Comment: Differential performed on cytospinPerformed By: #### [id number] ####[facility] ([facility])[address] [place], [place] [address]KJHPAJLJFLF TOTAL PER COUNTED LEUKOCYTES IN BODY FLUID BY MANUAL UUGAT56PfymykFtuocgccleSelect Medical OhioHealth Rehabilitation HospitalCommymichigan medical center west branch on above:Order Comment: Differential performed on cytospin Performed By: #### [id number] ####[facility] ([facility])[address] [place], [place] [address]JVBLM CELLS BODY FLUID (MANUAL)NormalUnAvita Health System Bucyrus HospitalComment on above:Order Comment: Differential performed on cytospin Performed By: #### [id number] ####[facility] ([facility])[address] [place] [place], [place] [address]XJBA FLUID CULTUREon 63-95-2716Lvllqmtw identified Cx Nom (Unsp spec)No growth at 5 daysNormalUniVeterans Health AdministrationComment on above:Performed By: #### [id number] ####[facility] ([facility])[address] [place], [place] [address]CWDN STAIN RESULTNormalUniversSelect Medical OhioHealth Rehabilitation Hospital Comment on above:Result Comment: No polymorphonuclear leukocytes seenNo organisms seenPerformed By: #### [id number] ####[facility] ([facility])[address] [place] [place], [place] [address]W-CBOGLSWH PROTEINon 04-19-2025 REACTIVE PROTEIN (MG/L) IN SER/MJMT148.7 mg/LHigh<=5.0UnAvita Health System Bucyrus HospitalComment on above:Result Comment: Testing performed using a new methodology, turbidimetry. Normal ranges have been updated. Old normal range was <8 mg/L. Performed By: #### [id number] ####[facility] ([facility])[address] [place], [place] [address]IHMhd 78-76-1663Cmheincsgxj distribution width (RBC) [Ratio] 13.8 %Xspscy33.5-15.0Flower HospitalComment on above: Performed By: #### [id number] ####[facility] ([facility])[address] [place], [place] [address]NHFHYQFADRW MEAN CORPUSCULAR HEMOGLOBIN CONCENTRATION (G/DL) BY EKNTQXALZ76.3 g/gATgue50.0-35.0UnAvita Health System Bucyrus HospitalComment on above:Performed By: #### [id number] ####[facility] ([facility])[address] [place], [place] [address]Mhjrxlgyec (Bld) [Volume fraction]36.8 %Low39.0-50.0 [facility] HospitalComment on above:Performed By: #### [id number] ####[facility] ([facility])[address] [address]Xhwdhpqwbp (Bld) [Mass/Vol]13.0 g/rMNiibmy39.0-17.0UnAvita Health System Bucyrus HospitalComment on above:Performed By: #### [id number] ####[facility] ([facility])[address] [place] [address]YLM (RBC) [Entitic mass]32.3 gsFpcnvr22.0-33.0UnAvita Health System Bucyrus HospitalComment on above:Performed By: #### [id number] ####[facility] ([facility])[address] [place] [address]RDO (RBC) [Entitic vol] 91.5 gERjuujz92.0-98.0UnAvita Health System Bucyrus HospitalComment on above: Performed By: #### [id number] ####[facility] ([facility])[address] [place] [address]ZCNKWUPOU (10*3/UL) IN BLOOD AUTOMATED [id number] 10*3/uLNormal 150-400UnAvita Health System Bucyrus HospitalComment on above:Performed By: #### [id number] ####[facility] ([facility])[address] [place] [address]PAK (Bld) [#/Vol]4.02 10*6/uLLow4.20-5.70UnAvita Health System Bucyrus HospitalComment on above:Performed By: #### [id number] ####[facility] ([facility])[address] [place] [address]FCS (Bld) [#/Vol]10.71 10*3/uLHigh4.00-10.60UnAvita Health System Bucyrus HospitalComment on above:Performed By: #### [id number] ####[facility] ([facility])[address] [address]EOTPTZXQWLJZZ METABOLIC PANELon 24-74-6240Nwzwfyz [Mass/Vol]3.8 g/dLNormal3.5-5.7UnAvita Health System Bucyrus HospitalComment on above:Performed By: #### [id number] ####[facility] ([facility])[address] [place], [place] [address]ZWF [Catalytic activity/Vol]51 U/L Pyzxxz37-458YgnbdzeduvAvita Health System Bucyrus HospitalComment on above:Performed By: #### [id number] ####[facility] ([facility])[address] [place], [place] [address]TIK [Catalytic activity/Vol]27 U/LNormal7-52UnAv[facility] Hospital Comment on above:Performed By: #### [id number] ####[facility] ([facility])[address] [place], [place] [address]Joegf gap [Moles/Vol]12 mmol/LNormal7-20UnAvita Health System Bucyrus HospitalComment on above:Performed By: #### [id number] ####[facility] ([facility])[address] [place], [place] [address]FSV [Catalytic activity/Vol]22 U/EThzpfc84-64ArwwsdyefaAvita Health System Bucyrus HospitalComment on above:Performed By: #### [id number] ####[facility] ([facility])[address] [place], [place] [address]Oqugzdhvx [Mass/Vol]0.7 mg/dLNormal0.3-1.0UnAvita Health System Bucyrus HospitalComment on above:Performed By: #### [id number] ####[facility] ([facility])[address] [place], [place] [address]Pfhfslz [Mass/Vol]9.5 mg/dLNormal 8.6-10.3UnAvita Health System Bucyrus HospitalComment on above:Performed By: #### [id number] ####[facility] ([facility])[address] [place], [place] [address]Dcyiebpd [Moles/Vol]91 mmol/XFqd01-498UhixulsiakAvita Health System Bucyrus HospitalComment on above:Performed By: #### [id number] ####[facility] [place], [place] [address]AY5 [Moles/Vol]28 mmol/MAbemmv80-55MfygpxfnuzAvita Health System Bucyrus HospitalComment on above:Performed By: #### [id number] ####[facility] ([facility])[address] [place] [address]Zakzbmmdcn [Mass/Vol]0.98 mg/dLNormal 0.70-1.30UnAvita Health System Bucyrus HospitalComment on above:Performed By: #### [id number] ####[facility] ([facility])[address] [place], [place] [address]HILVJQDRQM FILTRATION RATE ML/MIN/1.73 SQ M.LUSRLURCN34.5 mL/min/1.73m*2Normal>60.0 [facility] HospitalComment on above:Result Comment: [facility]???s estimated glomerular filtration rate (eG FR) [...] group of individuals. Performed By: #### [id number] ####[facility] ([facility])[address] [place], [place] [address]Jnbkhmh [Mass/Vol]109 mg/dOBbnh60-780ZajlzumoyyAvita Health System Bucyrus HospitalComment on above:Performed By: #### [id number] ####[facility] ([facility])[address] [place], [place] [address]Olnwhvbxa [Moles/Vol]5.0 mmol/LNormal 3.5-5.1UnAvita Health System Bucyrus HospitalComment on above:Performed By: #### [id number] ####[facility] ([facility])[address] [place] [address]Cvvtnlv [Mass/Vol]6.8 g/dLNormal6.0-8.3UnAvita Health System Bucyrus HospitalComment on above:Performed By: #### [id number] ####[facility] ([facility])[address] [place], [place] [address]Emekxr [Moles/Vol]126 mmol/JCab969-048EzbozqbtrnAvita Health System Bucyrus HospitalComment on above:Performed By: #### [id number] ####[facility] ([facility])[address], [place] [address]Ugud nitrogen [Mass/Vol]17 mg/dLNormal 7-25UnAvita Health System Bucyrus HospitalComment on above:Performed By: #### [id number] ####[facility] ([facility])[address], [place] [address]LJYY NITROGEN/CREATININE (MASS RATIO) IN SER/PLAS17.3NormalUniversSelect Medical OhioHealth Rehabilitation HospitalComment on above:Performed By: #### [id number] ####[facility] ([facility])[address], [place] [address]EUYBOEMhr 68-27-1740KRRONJMNrqptoMartins Ferry HospitalHIGH SENSITIVITY TROPONIN Ion 15-11-6092XT TROPONIN I (NG/L)7 ng/LNormal<20UnAvita Health System Bucyrus HospitalComment on above:Performed By: #### [id number] ####[facility] ([facility])[address], [place] [address]AKly 39-72-4452GFCdsjyfEllwrdsxym of [facility] Medical CenterHP NormalUnAvita Health System Bucyrus HospitalHPNormOhio Valley HospitalniVeterans Health AdministrationLaboratory - Microbiology and Antimicrobial susceptibilityOrdered By: Froy Avila on 11-45-7705FTZQ-CoV-2 (COVID-19) RNA DANDY+probe Ql (Unsp spec) NegativeNEGATIVEWhite HospitalComment on above:This test has not been [...] the declaration isterminated or authorization is revoked sooner.NON-GLASSWARE FINISHER CYTOLOGY - CELLULAR EXAMon [id number] AP CASE REPORT NormalUnAvita Health System Bucyrus HospitalComment on above:Result Comment: Non- gynecologic Cytology Case: [id number] Provider: Remigio Mancilla MD Collected: 04/19/2025 1523Ordering Location: [facility] Received: 04/19/2025 1533Pathologist: ADAMA Jonaspecimen: Pericardial FluidPerformed By: #### [id number] ####[facility] ([facility])[address] [facility], [place] [address]OCA AP CLINICAL INFORMATIONPericardial effusionNormalUniVeterans Health AdministrationComment on above:Performed By: #### [id number] ####[facility] (BEAKER)[address] [facility], [place] [address]BWK AP GROSS KHXCOVVPSSK196 mL opaque, red fluidNormalUniVeterans Health AdministrationComment on above:Performed By: #### [id number] ####[facility] (BEAKER)[address] [place] [address] LAB AP REPORT FINAL DIAGNOSIS NARRATIVENoAdena Pike Medical Center Comment on above:Result Comment: A. Pericardial fluid: - Negative for malignancy. - Marked acute inflammation. at 1746 EDTPerformed By: #### [id number] ####[facility] ([facility])[address] [facility], [place] [address]Wu Panel InformationOrdered By: Froy Avila on 46-70-1915Euebntj Influenza Type A AntigenNegativeWhite HospitalComment on above:Negative for Flu A protein antigen. Infection due to Flu Acannot be ruled out. Flu A antigen in thesample may bebelow the detection limit of the test.Bedside Influenza Type B AntigenNegativeWhite HospitalComment on above:Negative for Flu B protein antigen. Infection due to Flu Bcannot be ruled out. Flu B antigen in thesample may bebelow the detection limit of the test.Troponin I High Vrmphnqccdm55.5 pg/mL 4.0-76.1FOhioHealthComment on above:CUT-OFF POINTS HAVE BEEN ESTABLISHED BASED ON THE FOURTHUNIVERSAL DEFINITION OF MYOCARDIAL INFARCTIO N. THE UPPERREFERENCE LIMIT (URL) OF TROPONIN, DEFINED THE 99THPERCENTILE OF cTnI DISTRIBUTION IN A REFERENCE POPULATION,HAS BEEN CONFIRMED THE DECISION THRESHOLD FOR MIDIAGNOSIS.99TH PERCENTILE = 76.2 PG/MLNOTE: HIGH-SENSITIVITY TROPONIN ASSAY IS NOT INTENDED TO BEUSED IN ISOLATION BUT SHOULD BE INTERPRETED IN CONJUNCTIONWITH OTHER DIAGNOSTIC AND CLINICAL INFORMATION.OSMOLALITYon 92-22-5103EGUYBWFFHE CDNNVGBC863 mOsm/akDzm843-355ZkvvsoflyjAvita Health System Bucyrus HospitalComment on above:Result Comment: Test Performed by [employer] [address] [place] [address] - Released 04/20/2025 15:14Performed By: #### [id number] ####[facility] [id number] [place], [place] [address]PSLFUKAEV REVIEWon 25-30-6134QIKQIWBRG REVIEWReviewed.NormalUnAvita Health System Bucyrus HospitalComment on above:Result Comment: .Performed By: #### [id number] ####[facility] ([facility])[address] [place], [place] [address]MTELICJRAFVBU RATEon 04-19-2025 SEDIMENTATION RATE, TFYUDTJXKUG09 mm/hrNormal<20UnAvita Health System Bucyrus HospitalComment on above:Performed By: #### [id number] ####[facility] ([facility])[address] [place], [place] [address]UVVADW, URINE, RANDOMon 04-19-2025 Sodium (U) [Moles/Vol]59 mmol/LNormalUnAvita Health System Bucyrus HospitalComment on above:Performed By: #### [id number] ####[facility] ([facility])[address] [place], [place] [address]Dlarrpypi Auto (Bld) [#/Vol]Ordered By: Froy Avila on 26-02-4441Zbavrikxx (Bld) [#/Vol]0.0 10 3/uL0.0-0.1FOhioHealthBasophils/100 WBC Auto (Bld)Ordered By: Froy Avila on 04-18-2025 Basophils/100 WBC (Bld)0.3 %0.2-2.0[facility] Eosinophils/100 WBC Auto (Bld)Ordered By: Froy Avila on 04-18-2025 Eosinophils/100 WBC (Bld)0.1 %Low0.9-7.0[facility] Erythrocyte distribution width Auto (RBC) [Ratio]Ordered By: Froy Avila on 10-78-5188Emkvpiceykc distribution width (RBC) [Ratio]13.2 %11.0-15.0White HospitalGlomerular filtration rate (GFR) estimation in non- AmericanOrdered By: Froy Avila on 96-59-1203FQJ/1.73 sq M.predicted among non-blacks MDRD (S/P/Bld) [Vol rate/Area]mL/min/{1.73_m2}>=60 mL/min/1.73m 2FOhioHealthHematocrit Auto (Bld) [Volume fraction]Ordered By: Froy Avila on 76-58-3990Wvytbifgac (Bld) [Volume fraction]41.3 %Low 42.0-54.0White HospitalHemoglobin [Mass/volume] in Blood Ordered By: Froy Avila on 64-78-1298Kduchuivmh (Bld) [Mass/Vol]14.6 g/dL 14.0-18.0White HospitalLaboratory - Chemistry and Chemistry - challengeOrdered By: Froy Avila on 14-16-8691Qlnbibd [Mass/Vol]10.4 mg/dLHigh 8.5-10.1FOhioHealthChloride [Moles/Vol]86 mmol/ABsw00-429 White HospitalCO2 [Moles/Vol]25.4 mmol/L21.0-32.0White HospitalCreatinine [Mass/Vol]0.94 mg/dL0.70-1.30White HospitalGFR/1.73 sq M.predicted MDRD (S/P/Bld) [Vol rate/Area] mL/min/{1.73_m2}>=60 mL/min/1.73m 2FOhioHealthGlucose [Mass/Vol]114 mg/aNUodp71-698WqvwgrfswWhite HospitalNatriuretic peptide B (Bld) [Mass/Vol]332.0 pg/mL<=900.0[facility] Potassium [Moles/Vol]4.1 mmol/L3.5-5.1FUniversity Hospitals Conneaut Medical Centerodium [Moles/Vol]123 mmol/LCritically smz166-787RxvmrdoedWhite Hospital Comment on above:RESULTS CALLED TO GRETCHEN GUZMAN RN @BY Devika Valdez at 0008Urea nitrogen [Mass/Vol]15.0 mg/dL7.0-18.0White HospitalUrea nitrogen/Creatinine [Mass ratio]16.0 mg/mgWhite HospitalLaboratory - Hematology and Cell countsOrdered By: Froy Avila on 85-25-6536Ieuxzfyy granulocytes/100 WBC (Bld)0.2 %0.0-0.5FOhioHealthLeukocytes [#/volume] corrected for nucleated erythrocytes in Blood by Automated counOrdered By: Froy Avila on 31-36-3878TJH corrected for nucl RBC Auto (Bld) [#/Vol]8.9 10 3/uL4.0-11.0[facility] Lymphocytes Auto (Bld) [#/Vol]Ordered By: Froy Avila on 09-04-4746Hafhoxsfweg (Bld) [#/Vol]1.2 10 3/uL1.2-3.8White HospitalLymphocytes/100 WBC Auto (Bld)Ordered By: Froy Avila on 10-04-9370Reotxzqxhag/100 WBC (Bld) 13.3 %Low20.5-60.0Bluffton HospitalH Auto (RBC) [Entitic mass] Ordered By: Froy Avila on 08-47-5234EPM (RBC) [Entitic mass]32.1 pg25.9-34.0 White HospitalMCHC Auto (RBC) [Mass/Vol]Ordered By: Froy Avila on 98-65-2410OAJE (RBC) [Mass/Vol]35.4 g/bMDtxd73.9-35.2FOhioHealthMCV Auto (RBC) [Entitic vol]Ordered By: Froy Avila on 91-41-0615CXZ (RBC) [Entitic vol]90.8 fL80.0-94.0White HospitalMonocytes Auto (Bld) [#/Vol]Ordered By: Froy Avila on 04-18-2025 Monocytes (Bld) [#/Vol]1.2 10 3/uLHigh0.3-0.8[facility] Monocytes/100 WBC Auto (Bld)Ordered By: Froy Avila on 08-41-4166Lxajofpoy/100 WBC (Bld)13.8 %High1.7-12.0White HospitalNeutrophils Auto (Bld) [#/Vol]Ordered By: Froy Avila on 83-42-1391Wyaermdzydz (Bld) [#/Vol]6.4 10 3/uL1.4-6.5FOhioHealthNeutrophils/100 WBC Auto (Bld) Ordered By: Froy Avila on 88-49-8941Rwfctgptsne/100 WBC (Bld)72.3 %43.0-75.0 White HospitalNo Panel InformationOrdered By: Froy Avila on 50-13-1070Xwyanhldckg # (Auto)0.0 10 3/uL0.0-0.7FOhioHealthImmature Granulocyte # (Auto)0.02 10 3/uL0.00-0.03White HospitalTroponin I High Bhbkqzvvzuj91.5 pg/mL4.0-76.1FOhioHealthComment on above:CUT-OFF POINTS HAVE BEEN ESTABLISHED BASED [...] (Bld) [Entitic vol]Ordered By: Froy Avila on 80-96-6603Mhixzvua mean volume (Bld) [Entitic vol]10.4 fL9.5-13.5FOhioHealth Platelets Auto (Bld) [#/Vol]Ordered By: Froy Avila on 83-54-7303Jvtcyqxdl (Bld) [#/Vol]205 10 3/aA164-130RqpmnycbxWhite HospitalRBC Auto (Bld) [#/Vol]Ordered By: Froy Avila on 42-13-9520BJK (Bld) [#/Vol]4.55 10 6/uLLow 4.70-6.10Fisher-Titus Medical Centererum or plasma anion gap determinationOrdered By: Froy Avila on 34-65-0859Fuuyo gap [Moles/Vol]15.7 mmol/LFOhioHealthBASIC METABOLIC PANELon 22-01-2818Wxmzm gap [Moles/Vol]13 mmol/LNormal7-20UnAvita Health System Bucyrus HospitalComment on above:Performed By: #### [id number] ####[facility] (BEAK[facility])[address] [facility] [place], [place] [address]Ywhivaf [Mass/Vol]10.4 mg/dLHigh8.6-10.3UnAvita Health System Bucyrus HospitalComment on above:Performed By: #### [id number] ####[facility] (BEAKER)[address] [facility] [address]Jfbtaqfl [Moles/Vol]95 mmol/HFiq90-238 [facility] HospitalComment on above:Performed By: #### [id number] ####[facility] (BEAKER)[address] [facility] [address]AY7 [Moles/Vol] 28 mmol/LChrlrc46-55VyfzkfbvsrAvita Health System Bucyrus HospitalComment on above: Performed By: #### [id number] ####[facility] ([facility])[address] [place], [place] [address]Woxutqt [Mass/Vol]91 mg/kPXlfane00-618SawgaqnspmAvita Health System Bucyrus HospitalComment on above:Performed By: #### [id number] ####[facility] ([facility])[address] [place], [place] [address]Ltjlfbmqu [Moles/Vol]4.1 mmol/LNormal 3.5-5.1UnAvita Health System Bucyrus HospitalComment on above:Performed By: #### [id number] ####[facility] ([facility])[address] [place], [place] [address]Coswyt [Moles/Vol]132 mmol/LIvs823-142UflrwlfhnuAvita Health System Bucyrus HospitalComment on above:Performed By: #### [id number] ####[facility] ([facility])[address] [place], [place] [address]Rxhn nitrogen [Mass/Vol]15 mg/dLNormal7-25UnAvita Health System Bucyrus HospitalComment on above:Performed By: #### [id number] ####[facility] ([facility])[address] [place], [place] [address]PMNN NITROGEN/CREATININE (MASS RATIO) IN SER/PLAS15.8NormalUniversSelect Medical OhioHealth Rehabilitation HospitalComment on above: Performed By: #### [id number] ####[facility] ([facility])[address] [place], [place] [address]HDZkj 49-25-9657Jwtjgkfsgbj distribution width (RBC) [Ratio]15.2 %High 11.5-15.0UnAvita Health System Bucyrus HospitalComment on above:Performed By: #### [id number] ####[facility] ([facility])[address] [place] [address] ERYTHROCYTE MEAN CORPUSCULAR HEMOGLOBIN CONCENTRATION (G/DL) BY KBVKAITRG20.6 g/dXDxmuak87.0-35.0UnAvita Health System Bucyrus HospitalComment on above:Performed By: #### [id number] ####[facility] ([facility])[address] [place] [address]Vfxlolsexz (Bld) [Volume fraction]40.2 %Giykcg13.0-50.0[facility] HospitalComment on above:Performed By: #### [id number] ####[facility] ([facility])[address] [place] [address]Xvpzkzztiz (Bld) [Mass/Vol]13.9 g/dL Cowlqp78.0-17.0UnAvita Health System Bucy[facility] HospitalComment on above:Performed By: #### [id number] ####[facility] ([facility])[address] [place] [address]AJM (RBC) [Entitic mass]32.0 srFsffzt45.0-33.0[facility] Comment on above:Performed By: #### [id number] ####[facility] ([facility])[address] [place] [address]GQP (RBC) [Entitic vol]92.6 zCHxcntn93.0-98.0 [facility] HospitalComment on above:Performed By: #### [id number] ####[facility] ([facility])[address] [place] [address]PQYLIMKGC (10*3/UL) IN BLOOD AUTOMATED OXOWX532 10*3/xSRkpevo006-426DcbileecdpAvita Health System Bucyrus HospitalComment on above:Performed By: #### [id number] ####[facility] ([facility])[address] [place] [address]MGQ (Bld) [#/Vol]4.34 10*6/uLNormal 4.20-5.70UnAvita Health System Bucyrus HospitalComment on above:Performed By: #### [id number] ####[facility] ([facility])[address] [place] [address]LCO (Bld) [#/Vol]7.48 10*3/uLNormal4.00-10.60UnAvita Health System Bucyrus HospitalComment on above:Performed By: #### [id number] ####[facility] ([facility])[address] [place] [address]EZJCUOXRKS, SERUMon 90-54-3947Osderpgmpq [Mass/Vol]0.95 mg/dL Normal0.70-1.30UnAvita Health System Bucyrus HospitalComment on above:Performed By: #### [id number] ####[facility] ([facility])[address] [place] [address] Performed By: #### [id number] ####[facility] ([facility])[address] [place] [address]VKHMHYTYEE FILTRATION RATE ML/MIN/1.73 SQ M.UOAGWCRQR77.6 mL/min/1.73m*2Normal>60.0UnAvita Health System Bucyrus HospitalComment on above: Result Comment: [facility]???s estimated glomerular filtration rate (eGFR) will [...] affect anyone group of individuals.Performed By: #### [id number] ####[facility] ([facility])[address] [place] [address]Knfgxvncn By: #### [id number] ####[facility] ([facility])[address] [place] [address]MKQ CHEST W IV CONTRASTon 03-26-2025 CTA CHEST W IV CONTRASTInvalid Interpretation CodeUnAvita Health System Bucyrus HospitalComment on above:Order Comment: 45-day imaging - Post-LAAO device - venous & gaited with 3D reconstrution to assess left atrial appendageLabon 03-26-2025 LabNormalUniversity [facility] DaytonOrders Onlyon 75-74-7070Zeumjg Only NormalUnAvita Health System Bucyrus HospitalFollow-Upon 44-74-5149Kncdwl-UpNormUniversity Hospitals Elyria Medical CenterOrders Onlyon 13-76-5961Ooxqit OnlyNormal [facility]36on 63-31-819005RnwvtzCtnztrzuny [facility] DaytonTelephoneon 27-43-2812KishmegieQfqbxdEkegzhehnt [facility]30on 93-32-406999UxatgePjcwdujxiw of [facility] Medical CenterBASIC METABOLIC PANELon 64-92-0467Hpqwy gap [Moles/Vol]12 mmol/LNormal7-20UnAvita Health System Bucyrus HospitalComment on above:Performed By: #### [id number] ####[facility] ([facility])[address], [place] [address]Ovjfcxp [Mass/Vol]7.5 mg/dLLow8.6-10.3 [facility] HospitalComment on above:Performed By: #### [id number] ####[facility] ([facility])[address] [place], [place] [address]Uocffyuw [Moles/Vol]102 mmol/EXbfzhh99-510SzyxowdnfaAvita Health System Bucyrus HospitalComment on above:Performed By: #### [id number] ####[facility] ([facility])[address], [place] [address]MQ6 [Moles/Vol]25 mmol/TUodcqz74-29ZtioidrddkAvita Health System Bucyrus HospitalComment on above:Performed By: #### [id number] ####[facility] ([facility])[address], [place] [address]Cigfxzkhzz [Mass/Vol]0.81 mg/dLNormal 0.70-1.30UnAvita Health System Bucyrus HospitalComment on above:Performed By: #### [id number] ####[facility] ([facility])[address] [place], [place] [address]KIIDQGCPLG FILTRATION RATE ML/MIN/1.73 SQ M.XPTIHMNBB37.4 mL/min/1.73m*2Normal>60.0 [facility] HospitalComment on above:Result Comment: [facility]???s estimated glomerular filtration rate (eG FR) [...] group of individuals. Performed By: #### [id number] ####[facility] ([facility])[address] [place], [place] [address]Gfyvgwe [Mass/Vol]96 mg/qWVlvkbt17-485MsfgagxoycAvita Health System Bucyrus HospitalComment on above:Performed By: #### [id number] ####[facility] ([facility])[address] [place], [place] [address]Dbslwrceq [Moles/Vol]3.0 mmol/LLow 3.5-5.1UnAvita Health System Bucyrus HospitalComment on above:Performed By: #### [id number] ####[facility] ([facility])[address] [place], [place] [address]Aygdyl [Moles/Vol]136 mmol/SRorbcx588-568MwteixvhrtAvita Health System Bucyrus HospitalComment on above:Performed By: #### [id number] ####[facility] ([facility])[address] [place], [place] [address]Jorm nitrogen [Mass/Vol]12 mg/dLNormal7-25UnAvita Health System Bu[facility] HospitalComment on above:Performed By: #### [id number] ####[facility] ([facility])[address] [place], [place] [address]DKKS NITROGEN/CREATININE (MASS RATIO) IN SER/PLAS14.8NormalUniVeterans Health AdministrationComment on above: Performed By: #### [id number] ####[facility] ([facility])[address] [place], [place] [address]MPJcu 40-81-1871Uhattqqsgjl distribution width (RBC) [Ratio]14.3 % Kkxshv23.5-15.0UnAvita Health System Bucyrus HospitalComment on above:Performed By: #### [id number] ####[facility] [address] ERYTHROCYTE MEAN CORPUSCULAR HEMOGLOBIN CONCENTRATION (G/DL) BY ZXWFRTTJS46.2 g/kLVoyyre13.0-35.0UnAvita Health System Bucyrus HospitalComment on above:Performed By: #### [id number] ####[facility] ([facility])[address] [place] [address]Yktjarhdsq (Bld) [Volume fraction]33.9 %Low39.0-50.0UnAvita Health System Bucyrus HospitalComment on above:Performed By: #### [id number] ####[facility] ([facility])[address] [place] [address]Auryfqoork (Bld) [Mass/Vol]11.6 g/dL Low13.0-17.0UnAvita Health System Bucyrus HospitalComment on above:Performed By: #### [id number] ####[facility] ([facility])[address] [place] [address]YXS (RBC) [Entitic mass]32.0 pwWpdejj30.0-33.0Un[facility] Comment on above:Performed By: #### [id number] ####[facility] ([facility])[address] [place] [address]DIQ (RBC) [Entitic vol]93.4 wFIdeztn31.0-98.0 [facility] HospitalComment on above:Performed By: #### [id number] ####[facility] ([facility])[address] [place] [address]PCJKJLTSN (10*3/UL) IN BLOOD AUTOMATED RIENF201 10*3/hCCwnxnn687-279YhwgqpkwisAvita Health System Bucyrus HospitalComment on above:Performed By: #### [id number] ####[facility] ([facility] [place] [address]LFT (Bld) [#/Vol]3.63 10*6/uLLow 4.20-5.70UnAvita Health System Galion Hospitaledo Medical CenterComment on above:Performed By: #### [id number] ####[facility] ([facility])[address] [place] [address]CAE (Bld) [#/Vol]6.13 10*3/uLNormal4.00-10.60UnAvita Health System [facility] HospitalComment on above:Performed By: #### [id number] ####[facility] ([facility])[address] [place] [address]FRiy 25-10-9495QFGselmwUuxozbdrbz of [facility] Orders Onlyon 13-99-2126Nuwmry OnlyNormalUniversSelect Medical OhioHealth Rehabilitation Hospital POTASSIUMon 40-13-1131Pxtaeqwat [Moles/Vol]3.4 mmol/LLow3.5-5.1[facility] HospitalComment on above:Performed By: #### [id number] ####[facility] ([facility])[address] [place] [address]95vs 58-97-435498HxmkkmMartins Ferry Hospital30NormalUniversSelect Medical OhioHealth Rehabilitation Hospital ANESon 39-14-2430SRACAqxvroVoxvkmoswq of [facility] Medical CenterHPon 66-64-3650XS [facility] HospitalNURSNOTEon 34-48-0630WALSRVOESxmgayMartins Ferry HospitalNURSNOTECHG wipes and betadine nasal swabs completed.NormalFlower HospitalTYPE AND SCREENon 02-06-2025 AB SCREENNegativeNormalUniversSelect Medical OhioHealth Rehabilitation HospitalComment on above: Performed By: #### [id number] ####[facility]OD [facility],ABO group Nom (Bld)[facility] SpringfieldComment on above:Performed By: #### [id number] ####[facility]OD [facility],RH TYPE IN BLOODPositiveNormalUniVeterans Health AdministrationComment on above:Performed By: #### [id number] ####[facility] B[facility]OD [facility],Orders Only on 62-41-8790Jcfzjw OnlyNormalUniversity [facility] DaytonALL BASIC METABOLIC PANELon 39-80-5031Dtzpp gap [Moles/Vol]16.6 mmol/LNOMS Healthcare Calcium [Mass/Vol]9.2 mg/dL8.5 - 10.1 mg/dLNOMS HealthcareChloride [Moles/Vol] 101 mmol/L98 - 107 mmol/LNOMS HealthcareCO2 [Moles/Vol]24.7 mmol/L21.0 - 32.0 mmol/LNOMS HealthcareCreatinine [Mass/Vol]0.9 mg/dL0.70 - 1.30 mg/dLNOMS HealthcareGFR/1.73 sq M.predicted CKD-EPI (S/P/Bld) [Vol rate/Area]>60>=60 mL/min/1.73m 2NOMS HealthcareGlucose [Mass/Vol]90 mg/dL74 - 106 mg/dLNOIL HealthcareInterpretation and review of laboratory resultsAbnormalNOMS Healthcare Potassium [Moles/Vol]3.3 mmol/LLow3.5 - 5.1 mmol/LNOMS HealthcareSodium [Moles/Vol]139 mmol/L136 - 145 mmol/LNOMS HealthcareTBH EGFR-NON AF CYMRAES>60 >=60 mL/min/1.73m 2NOMS HealthcareUrea nitrogen [Mass/Vol]13 mg/dL7.0 - 18.0 mg/dLNOIL HealthcareUrea nitrogen/Creatinine [Mass ratio]14.4 mg/mgNOMS HealthcareCLINISYNCNOMS HealthcarePrep for Procedureon 43-78-7308Nfrs for ProcedureNormalUniversity of [facility] Heart & Surgical HospitalOrders Onlyon 80-17-6432Cmvvjt OnlyNormalUniversity [facility] DaytonOrders Onlyon 32-99-9773Lpuwki Only NormalUniversity [facility] DaytonCA ECHO DOPPLER COMPLETEon 12-05-[address] [address] Cardiology Report Signed Patient: KRISTY DOHERTY MR#: [id number] : 1955 Acct:[id number] Age/Sex: 69 / M ADM Date: 12/05/24 Loc: CARD Attending Dr: BORIS WILLIAM Ordering Physician: BORIS WILLIAM Date of Service: 12/05/24 Procedure(s): CA echo doppler complete Accession Number(s): [id number] cc: BORIS WILLIAM; Rudy King M.D. Patient Name: KRISTY DOHERTY MR#: [id number] : 1955 Exam Date: 12/05/2024 Ordering Doctor: [...] content not included)...TBHRadiology, Radiologist, - 12/05/[address] [address] Cardiology Report Signed Patient: KRISTY DOHERTY MR#: [id number] : 1955 Acct:[id number] Age/Sex: 69 / M ADM Date: 12/05/24 Loc: CARD Attending Dr: BORIS WILLIAM Ordering Physician: BORIS WILLIAM Date of Service: 12/05/24 Procedure(s): CA echo doppler complete Accession Number(s): [id number] cc: BORIS WILLIAM; Rudy King M.D. Patient Name: KRISTY DOHERTY MR#: [id number] : 1955 Exam Date: 12/05/2024 Ordering Doctor: [...] Signed By: 12/05/24 1545 DD/ 1544 TD/TT: Clinical Research Manager: BRIGETTE HealthcareRadiology Study observation (narrative)BRIGETTE HealthcareCA ECHO DOPPLER COMPLETEOrdered By: Radiologist Radiology on 06-01-8213TADM [employer] Work Phone: aNESon 93-86-1027XKFDUqmqujOsntoygyuw of [place] Medical CenterBASIC METABOLIC PANELon 92-23-6699Dqckz gap [Moles/Vol]19 mmol/L Normal7-20UnAvita Health System Bucyrus HospitalComment on above:Performed By: #### [id number] ####[facility] ([facility])[address] [place], [place] [address]Ekjaogr [Mass/Vol]8.8 mg/dLNormal8.6-10.3UnAvita Health System Bucyrus HospitalComment on above:Performed By: #### [id number] ####[facility] ([facility])[address] [place], [place] [address]Prvlzjhv [Moles/Vol]101 mmol/MTwfufq46-562QwhgsbteejAvita Health System Bucyrus HospitalComment on above:Performed By: #### [id number] ####[facility] ([facility])[address] [place], [place] [address]ER8 [Moles/Vol]24 mmol/LNormal 21-31UnAvita Health System Bucyrus HospitalComment on above:Performed By: #### [id number] ####[facility] ([facility])[address] [place], [place] [address]Kvfpgjnsla [Mass/Vol]0.93 mg/dLNormal0.70-1.30UnAvita Health System Bucyrus HospitalComment on above:Performed By: #### [id number] ####[facility] ([facility])[address], [place] [address]BCAXMNTEHY FILTRATION RATE ML/MIN/1.73 SQ M.NVLGHTDQI22.9 mL/min/1.73m*2Normal>60.0UnAvita Health System Bucyrus HospitalComment on above: Result Comment: [facility]???s estimated glomerular filtration rate (eGFR) will [...] anyone group of individuals.Performed By: #### [id number] ####[facility] ([facility])[address] [place], [place] [address]Lzdvyxa [Mass/Vol]108 mg/uSBqre98-259EamkzggfztAvita Health System Bucyrus HospitalComment on above:Performed By: #### [id number] ####[facility] ([facility])[address] [place], [place] [address]Mxcppqcys [Moles/Vol]4.5 mmol/L Normal3.5-5.1UnAvita Health System Bucyrus HospitalComment on above:Performed By: #### [id number] ####[facility] ([facility])[address] [place] [address] Sodium [Moles/Vol]139 mmol/PNgrfeq053-791FpmdfsfutkAvita Health System Bucyrus Hospital Comment on above:Performed By: #### [id number] ####[facility] ([facility])[address] [place], [place] [address]Htvq nitrogen [Mass/Vol]16 mg/dLNormal7-25 [facility] HospitalComment on above:Performed By: #### [id number] ####[facility] ([facility])[address], [place] [address]ALDQ NITROGEN/CREATININE (MASS RATIO) IN SER/PLAS17.2NormalUnAvita Health System Bucyrus HospitalComment on above:Performed By: #### [id number] ####[facility] ([facility])[address] [place], [place] [address]XVQsz 57-02-6244Apjswhyhkgn distribution width (RBC) [Ratio]13.9 %Tzwttw30.5-15.0UnAvita Health System Bucyrus HospitalComment on above:Performed By: #### [id number] ####[facility] ([facility])[address] [place] [address]OJVOPMKBLQJ MEAN CORPUSCULAR HEMOGLOBIN CONCENTRATION (G/DL) BY QRBFGBHVF02.2 g/lGTknwhm47.0-35.0UnAvita Health System Bucyrus HospitalComment on above:Performed By: #### [id number] ####[facility] ([facility])[address] [place] [address]Zmkeosiztx (Bld) [Volume fraction]40.9 %Oxalmm99.0-50.0UnAvita Health System Bucyrus HospitalComment on above:Performed By: #### [id number] ####[facility] ([facility])[address] [place] [address]Ntcrtchypd (Bld) [Mass/Vol]14.0 g/fPLhhynk18.0-17.0UnAvita Health System Bucyrus HospitalComment on above:Performed By: #### [id number] ####[facility] ([facility])[address] [place] [address]GFY (RBC) [Entitic mass] 31.5 qmJgwjbe73.0-33.0UnAvita Health System Bucyrus HospitalComment on above: Performed By: #### [id number] ####[facility] ([facility])[address] [place] [address]HYZ (RBC) [Entitic vol]92.1 xKYudguc06.0-98.0UnAvita Health System Bucyrus HospitalComment on above:Performed By: #### [id number] ####[facility] ([facility])[address] [place] [address]SPZEHLTOC (10*3/UL) IN BLOOD AUTOMATED GSBCE122 10*3/iDWsvipd882-710SgcaarvbqkAvita Health System Bucy[facility] Hospital Comment on above:Performed By: #### [id number] ####[facility] ([facility])[address] [place] [address]EAT (Bld) [#/Vol]4.44 10*6/uLNormal4.20-5.70 [facility] HospitalComment on above:Performed By: #### [id number] ####[facility] (BEAK[facility])[address] [place], [place] [address]XYE (Bld) [#/Vol]6.95 10*3/uLNormal4.00-10.60F[facility] HospitalComment on above:Performed By: #### [id number] ####[facility] ([facility])[address] [address]JVnn 24-37-4225VMU&P reviewed. The patient was examined and there are no changes to the H&P.[facility] NURSNOTEon 14-25-2191GDLVWEDUDehqjne swallow study completed and passed.[facility] HospitalNURSNOTENormalUniversSelect Medical OhioHealth Rehabilitation HospitalTelephoneon 97-54-8256HywxcrgfaEtiaqaYsfhgwnmgy of [facility] Orders Onlyon 29-83-2133Dlilbr OnlyNormalUniversSelect Medical OhioHealth Rehabilitation HospitalHPon 00-78-5447XJKpakgwPzqwtjfanc of [facility] Xrfole48at 41-88-712669Vwbjvtqhv lab results from 08/16/2024: MD Zaida Currie MA His blood test was okay. Continue same and follow-up as planned. Patient made aware.[facility] HospitalALL BASIC METABOLIC PANELon 52-02-8168Xjqch gap [Moles/Vol]13.5 mmol/LNOMS HealthcareCalcium [Mass/Vol]8.8 mg/dL8.5 - 10.1 mg/dLNOMS HealthcareChloride [Moles/Vol]101 mmol/L 98 - 107 mmol/LNOMS HealthcareCO2 [Moles/Vol]29.5 mmol/L21.0 - 32.0 mmol/LNOMS HealthcareCreatinine [Mass/Vol]1.3 mg/dL0.70 - 1.30 mg/dLNOMS HealthcareGFR/1.73 sq M.predicted CKD-EPI (S/P/Bld) [Vol rate/Area]>60>=60 mL/min/1.73m 2NOMS HealthcareGlucose [Mass/Vol]129 mg/qVEbpq10 - 106 mg/dLNOMS Healthcare Interpretation and review of laboratory resultsAbnormalNOMS HealthcarePotassium [Moles/Vol]4 mmol/L3.5 - 5.1 mmol/LNOMS HealthcareSodium [Moles/Vol]140 mmol/L 136 - 145 mmol/LNOMS HealthcareTBH EGFR-NON AF ASCJXAWO90Ilv>=60 mL/min/1.73m 2 NOMS HealthcareUrea nitrogen [Mass/Vol]18 mg/dL7.0 - 18.0 mg/dLNOIL Healthcare Urea nitrogen/Creatinine [Mass ratio]13.8 mg/mgNOMS HealthcareCLINISYNCNOMS HealthcareCA ECHO DOPPLER COMPLETEon 70-79-2965[place] [address] Cardiology Report Signed Patient: KRISTY DOHERTY MR#: [id number] : 1955 Acct:[id number] Age/Sex: 68 / M ADM Date: 12/14/23 Loc: CARD Attending Dr: BORIS WILLIAM Ordering Physician: BORIS WILLIAM Date of Service: 12/14/23 Procedure(s): CA echo doppler complete Accession Number(s): [id number] cc: BORIS WILLIAM; Rudy King M.D. Patient Name: KRISTY DOHERTY MR#: [id number] : 1955 Exam Date: 12/14/2023 Ordering Doctor: [...] not included)...TBHRadiology, Radiologist, MD - 12/14/2023 [place] [address] Cardiology Report Signed Patient: KRISTY DOHERTY MR#: [id number] : 1955 Acct:[id number] Age/Sex: 68 / M ADM Date: 12/14/23 Loc: CARD Attending Dr: BORIS WILLIAM Ordering Physician: BORIS WILLIAM Date of Service: 12/14/23 Procedure(s): CA echo doppler complete Accession Number(s): [id number] cc: BORIS WILLIAM; Rudy King M.D. Patient Name: KRISTY DOHERTY MR#: [id number] : 1955 Exam Date: 12/14/2023 Ordering Doctor: [...] WILLIAM Signed By: 12/14/231911 DD/ 10 TD/TT: Clinical Research Manager: BRIGETTE [facility] SouthRadiology Study observation (narrative)[facility]–SmithvilleCA ECHO DOPPLER COMPLETEOrdered By: Radiologist Radiology on 45-51-2420XJKK Healthcare Work Phone: aNA Antinuclear Antibodieson 72-24-6840Yupumxbklqy Abs, IFAPositiveCritically abnormal.White HospitalComment on above:Result Comment: Negative <1:80 Borderline 1:80 Positive >1:80Performed By: #### COLLIN #### [facility] , #### PTH, CRP, CBC, ESR, URIC, CMP #### [facility] [address] [id number] USAHomogeneous Pattern1:80Normal.White HospitalComment on above:Result Comment: ICAP nomenclature: AC-1Performed By: #### COLLIN #### [facility] , #### PTH, CRP, CBC, ESR, URIC, CMP #### [facility] [address] [id number] USANote 1Normal.White HospitalComment on above:Result Comment: For more information [...] titers Nucleosomes, Histones Drug-induced SLE Speckled Sm, WATER POLLUTION CONTROL TECHNICIAN, SCL-70, SLE,MCTD,PSS (diffuse form), SS-A/SS-B Sjogrens Nucleolar SCL-70, PM-1/SCL High titers Scleroderma, PM/DM Centromere Centromere PSS (limited form) w/Crest syndrome variable Nuclear Dot Sp100,a72-iaighm Primary Biliary Cirrhosis Nuclear GP210, Primary Biliary Cirrhosis Membrane flor A,B,C Performed at: [facility] [address] [id number] Winemaker: John Acosta PhD, Phone: [phone] PERFORMED BY: [place] [address] PATHOLOGIST [employer] ROMULO SERRA M.D.Performed By: #### COLLIN #### [facility] , #### PTH, CRP, CBC, ESR, URIC, CMP #### [place] [address] USAC-Reactive Proteinon 45-61-8879I-Reactive Protein0.6 mg/dL High0.0-0.5FOhioHealthComment on above:Result Comment: PERFORMED BY: [place] [address] PATHOLOGIST [employer] WORK[employer] ROMULO SERRA M.D.Performed By: #### COLLIN #### [facility] , #### PTH, CRP, CBC, ESR, URIC, CMP #### [facility] [address] [place] [address] USAComplete Blood Count Auto Diffon 29-34-0245Fafharwdf (Bld) [#/Vol]0.1 10*3/uLNormal0.0-0.2FOhioHealthComment on above:Performed By: #### COLLIN #### [facility] , #### PTH, CRP, CBC, ESR, URIC, CMP #### [facility] [address] [place] [address] USABasophils/100 WBC (Bld)1.1 %Normal.White HospitalComment on above:Performed By: #### COLLIN #### [facility] , #### PTH, CRP, CBC, ESR, URIC, CMP #### [place] [address] USAEosinophils (Bld) [#/Vol]0.3 10*3/uLNormal0.0-0.45 White HospitalComment on above:Performed By: #### COLLIN #### [facility] , #### PTH, CRP, CBC, ESR, URIC, CMP #### [place] [address] USAEosinophils/100 WBC (Bld)4.2 %Normal.White HospitalComment on above:Performed By: #### COLLIN #### [facility] , #### PTH, CRP, CBC, ESR, URIC, CMP #### [place] [address] USAErythrocyte distribution width (RBC) [Ratio]16.3 %High 12.0-14.8White HospitalComment on above:Performed By: #### COLLIN #### [facility] , #### PTH, CRP, CBC, ESR, URIC, CMP #### [place] [address] USAHematocrit (Bld) [Volume fraction]40.2 %Xjiwjw09.8-50.0 White HospitalComment on above:Performed By: #### COLLIN #### [facility] , #### PTH, CRP, CBC, ESR, URIC, CMP #### [place] [address] USAHemoglobin (Bld) [Mass/Vol]13.3 g/kGSyxdkn82.0-17.0 White HospitalComment on above:Performed By: #### COLLIN #### [facility] , #### PTH, CRP, CBC, ESR, URIC, CMP #### [address] [place] [address] USALymphocytes (Bld) [#/Vol]2.5 10*3/uLNormal1.00-4.8 White HospitalComment on above:Performed By: #### COLLIN #### [facility] , #### PTH, CRP, CBC, ESR, URIC, CMP #### [facility] [address] [place] [address] USALymphocytes/100 WBC (Bld)31.3 %Normal.White HospitalComment on above:Performed By: #### COLLIN #### [facility] , #### PTH, CRP, CBC, ESR, URIC, CMP #### [facility] [address] [place] [address] USAMCH (RBC) [Entitic mass]29.4 gbMpcokz10.5-35.2FOhioHealthComment on above:Performed By: #### COLLIN #### [facility] , #### PTH, CRP, CBC, ESR, URIC, CMP #### [facility] [address] [place] [address] USAMCV (RBC) [Entitic vol]88.7 tCMkfodp84.5-101White HospitalComment on above:Performed By: #### COLLIN #### [facility] , #### PTH, CRP, CBC, ESR, URIC, CMP #### [facility] [address] [place] [address] USAMean Corpuscular HGB Conc33.1 g/lAKhrsne65.5-35.6FOhioHealthComment on above:Performed By: #### COLLNI #### [facility] , #### PTH, CRP, CBC, ESR, URIC, CMP #### [facility] [address] [place] [address] USAMonocytes (Bld) [#/Vol]1.0 10*3/uLHigh0.0-0.8White HospitalComment on above:Performed By: #### COLLIN #### [facility] , #### PTH, CRP, CBC, ESR, URIC, CMP #### [facility] [address] [place] [address] USAMonocytes/100 WBC (Bld)12.9 %Normal.White HospitalComment on above:Performed By: #### COLLIN #### [facility] , #### PTH, CRP, CBC, ESR, URIC, CMP #### [place] [address] USANeutrophils (Bld) [#/Vol]4.1 10*3/uLNormal1.8-7.7FOhioHealthComment on above:Performed By: #### COLLIN #### [facility] , #### PTH, CRP, CBC, ESR, URIC, CMP #### [facility] [address] [place] [address] USANeutrophils/100 WBC (Bld)50.5 %Normal.White HospitalComment on above:Performed By: #### COLLIN #### [facility] , #### PTH, CRP, CBC, ESR, URIC, CMP #### [place] [address] USANRBC%0.0 /100{WBC}Normal0-0.5FOhioHealthComment on above:Performed By: #### COLLIN #### [facility] , #### PTH, CRP, CBC, ESR, URIC, CMP #### [facility] [address] [place] [address] USAPlatelet mean volume (Bld) [Entitic vol]8.7 fLNormal 6.6-10.1FOhioHealthComment on above:Performed By: #### COLLIN #### [facility] , #### PTH, CRP, CBC, ESR, URIC, CMP #### [facility] [address] [place] [address] USAPlatelets (Bld) [#/Vol]285 10*3/wZClotbk848-035XkqmhmescWhite HospitalComment on above:Performed By: #### COLLIN #### [facility] , #### PTH, CRP, CBC, ESR, URIC, CMP #### [place] [address] USARBC (Bld) [#/Vol]4.53 10*6/uLNormal3.90-5.60White HospitalComment on above:Performed By: #### COLLIN #### [facility] , #### PTH, CRP, CBC, ESR, URIC, CMP #### [facility] [address] [place] [address] USAWBC (Bld) [#/Vol]8.0 10*3/uLNormal4.1-10.5FOhioHealthComment on above:Performed By: #### COLLIN #### [facility] , #### PTH, CRP, CBC, ESR, URIC, CMP #### [facility] [address] [place] [address] USAComprehensive Metabolic Panelon 26-93-1047Gazwklj [Mass/Vol]4.2 g/dLNormal3.5-5.7FOhioHealthComment on above:Performed By: #### COLLIN #### [facility] , #### PTH, CRP, CBC, ESR, URIC, CMP #### [facility] [address] [place] [address] USAAlbumin/Globulin [Mass ratio]1.3 {ratio}NormalWhite HospitalComment on above:Performed By: #### COLLIN #### [facility] , #### PTH, CRP, CBC, ESR, URIC, CMP #### [facility] [address] [place] [address] USAALP [Catalytic activity/Vol]69 U/QZpfbzz68-695NyddgkpcgWhite HospitalComment on above:Performed By: #### COLLIN #### [facility] , #### PTH, CRP, CBC, ESR, URIC, CMP #### [facility] [address] [place] [address] USAALT [Catalytic activity/Vol]15 U/LNormal7-52White HospitalComment on above:Performed By: #### COLLIN #### [facility] , #### PTH, CRP, CBC, ESR, URIC, CMP #### [facility] [address] [place] [address] USAAnion gap [Moles/Vol]9.9 mmol/LNormal6.0-15.0White HospitalComment on above:Performed By: #### COLLIN #### [facility] , #### PTH, CRP, CBC, ESR, URIC, CMP #### [facility] [address] [place] [address] USAAST [Catalytic activity/Vol]24 U/SCzxtqg77-86SwdnchzwxWhite HospitalComment on above:Performed By: #### COLLIN #### [facility] , #### PTH, CRP, CBC, ESR, URIC, CMP #### [facility] [address] [place] [address] USABilirubin [Mass/Vol]0.4 mg/dLNormal0.3-1.0White HospitalComment on above:Performed By: #### COLLIN #### [facility] , #### PTH, CRP, CBC, ESR, URIC, CMP #### [facility] [address] [place] [address] USACalcium [Mass/Vol]9.6 mg/dLNormal8.6-10.3FOhioHealthComment on above:Performed By: #### COLLIN #### [facility] , #### PTH, CRP, CBC, ESR, URIC, CMP #### [facility] [address] [place] [address] USAChloride [Moles/Vol]103 mmol/GOjtigp64-387IfgrpnxjmWhite HospitalComment on above:Performed By: #### COLLIN #### [facility] , #### PTH, CRP, CBC, ESR, URIC, CMP #### [facility] [address] [place] [address] USACO2 [Moles/Vol]29.5 mmol/FKrelgl31.0-31.0White HospitalComment on above:Performed By: #### COLLIN #### [facility] , #### PTH, CRP, CBC, ESR, URIC, CMP #### [facility] [address] [place] [address] USACreatinine [Mass/Vol]1.06 mg/dLNormal0.70-1.30White HospitalComment on above:Performed By: #### COLLIN #### [facility] , #### PTH, CRP, CBC, ESR, URIC, CMP #### [facility] [address] [place] [address] USAGFR/1.73 sq M.predicted MDRD (S/P/Bld) [Vol rate/Area] mL/min/{1.73_m2}[facility] HospitalComment on above: Performed By: #### COLLIN #### [facility] , #### PTH, CRP, CBC, ESR, URIC, CMP #### [facility] [address] [place] [address] USAGlobulin (S) [Mass/Vol]3.2 g/dLNormJoint Township District Memorial HospitalComment on above:Performed By: #### COLLIN #### [facility] , #### PTH, CRP, CBC, ESR, URIC, CMP #### [facility] [address] [place] [address] USAGlucose [Mass/Vol]81 mg/sJUmssbx86-804DbgzlukczWhite HospitalComment on above:Result Comment: Random Glucose Reference Range is dependent on time and content of last meal. Glucose of more than 200 mg/dL in a nonstressed, ambulatory subject supports the diagnosis of Diabetes Mellitus. ADA recommended reference rangePerformed By: #### COLLIN #### [facility] , #### PTH, CRP, CBC, ESR, URIC, CMP #### [place] [address] USAPotassium [Moles/Vol]4.4 mmol/LNormal3.5-5.1FOhioHealthComment on above:Performed By: #### COLLIN #### [facility] , #### PTH, CRP, CBC, ESR, URIC, CMP #### [place] [address] USAProtein [Mass/Vol]7.4 g/dLNormal6.4-8.9White HospitalComment on above:Performed By: #### COLLIN #### [facility] , #### PTH, CRP, CBC, ESR, URIC, CMP #### [facility] [address] [place] [address] USASodium [Moles/Vol]138 mmol/RMtedyd781-479ZsgzfypcxWhite HospitalComment on above:Performed By: #### COLLIN #### [facility] , #### PTH, CRP, CBC, ESR, URIC, CMP #### [facility] [address] [place] [address] USAUrea nitrogen [Mass/Vol]19 mg/dLNormal7-25White HospitalComment on above:Performed By: #### COLLIN #### [facility] , #### PTH, CRP, CBC, ESR, URIC, CMP #### [facility] [address] [place] [address] USAErythrocyte Sedimentation Rateon 01-30-2938OMX (Bld) [Velocity]43 mm/hHigh0-19White HospitalComment on above: Result Comment: PERFORMED BY: [place] [address] PATHOLOGIST [employer] ROMULO SERAR M.D.Performed By: #### COLLIN #### [facility] , #### PTH, CRP, CBC, ESR, URIC, CMP #### [place] [address] USAParathyroid Hormone [place] 96-94-9950Cphvffkaeae Hormone Kffbfn46.1 pg/vVGffean19-43TdduebfzsWhite HospitalComment on above: Result Comment: PERFORMED BY: [place] [address] PATHOLOGIST [employer] ROMULO SERRA M.D.Performed By: #### COLLIN #### [facility] , #### PTH, CRP, CBC, ESR, URIC, CMP #### [place] [address] USAUric Acidon 74-93-1042Twueo [Mass/Vol]3.5 mg/dLNormal 2.4-7.6FOhioHealthComment on above:Performed By: #### COLLIN #### [facility] , #### PTH, CRP, CBC, ESR, URIC, CMP #### [place] [address] USAXR foot LT 2Von 74-75-5102MC foot LT [facility] [place] [address] XRay Report Signed Patient: Kristy Doherty MR#: [id number] 81 : 1955 Acct:[id number] Age/Sex: 67 / M ADM Date: 12/03/22 Loc: ICXD Room: Type: [facility] Attending Dr: Kristy Beatty MD Copies [...] Bonnie Grewal M.D.12/03/2022 4:56 PM Dictation Location: [place] [address] Transcribed By: [facility] 12/03/221655 Dictated By: Bonnie Grewal II, MD 12/03/221654 Signed By: 12/03/221655[facility] HospitalXR hand BI 2Von 17-29-5184LE hand BI [facility] [place] [address] XRay Report Signed Patient: Kristy Doherty MR#: [id number] 81 : 1955 Acct:[id number] Age/Sex: 67 / M ADM Date: 12/03/22 Loc: [facility] Room: Type: [facility] Attending Dr: Kristy Beatty MD Copies [...] Bonnie Grewal M.D.12/03/2022 5:29 PM Dictation Location: [facility] Transcribed By: SUSAN 12/03/221728 Dictated By: Bonnie Grewal II, MD 12/03/221650 Signed By: 12/03/22 172[facility] HospitalXR knee LT 2Von 54-20-4237KK knee LT [facility] [place] [address] [place] [address] XRay Report Signed Patient: Kristy Doherty MR#: [id number] 81 : 1955 Acct:[id number] Age/Sex: 67 / M ADM Date: 12/03/22 Loc: ICXD Room: Type: [facility] Attending Dr: Kristy Beatty MD Copies [...] Bonnie Grewal M.D.12/03/2022 4:54 PM Dictation Location: [facility]- Transcribed By: [facility] 12/03/221653 Dictated By: Bonnie Grewal II, MD 12/03/221652 Signed By: 12/03/221653[facility] HospitalANA by IFAon 11-04-2022 Antinuclear Antibodies, IFANegativeRegency Hospital Cleveland EastComment on above: Result Comment: Negative <1:80 Borderline 1:80 Positive >1:80 ICAP nomenclature: AC-0 For more information about Hep-2 cell patterns use ANApatterns.org, the official website for the International Consensus on Antinuclear Antibody (COLLIN) Patterns (ICAP).Performed By: #### CMADM, BMP #### [facility] [address] [place] [address] Dr. Skylar JansenSTREPTOLYSIN O AB (ASO)on 26-95-3326Xcaevillxbgplfdc O Ab 326.2 IU/mLCritically high0.0-200.0[facility] Willard HospitalComment on above: Performed By: #### ASOAB #### [facility] [address] [place] [address] Dr. Skylar ChadwickRHEUMATOID FACTORon 43-98-3021GG Latex Turbid.14.3 IU/mL Critically high<14.0The CentervilleComment on above:Performed By: #### KEVIN, BMP #### [facility] [address] [place] [address] Dr. Skylar Jovel AUTO DIFFon 86-08-5160AFVG #0.1 103/ulNormal0.0-0.1The CentervilleComment on above:Performed By: #### KEVIN, BMP #### [facility] [address] [place] [address] Dr. Skylar ChadwickBasophils/100 WBC (Bld)0.7 %Normal0.2-2.0The [facility] Comment on above:Performed By: #### CMADM, BMP #### [facility] [address] [place] [address] Dr. Skylar Chamorro #0.2 103/ulNormal0.0-0.7The CentervilleComment on above: Performed By: #### CMADM, BMP #### [facility] [address] [place] [address] Dr. Skylar Burnhamosinophils/100 WBC (Bld)2.8 %Normal0.9-7.0The [facility] Comment on above:Performed By: #### KEVIN, BMP #### [facility] [address] [place] [address] Dr. Skylar Burnhamrythrocyte distribution width (RBC) [Ratio]15.1 %Critically high 11.0-15.0The CentervilleComment on above:Performed By: #### CMADM, BMP #### [facility] [address] [place] [address] Dr. Skylar Vazquezatocrit (Bld) [Volume fraction]37.2 %Critically low42.0-54.0 The CentervilleComment on above:Performed By: #### CMADM, BMP #### [facility] [address] [place] [address] Dr. Skylar ChadwickHemoglobin (Bld) [Mass/Vol]12.2 g/dLCritically low14.0-18.0[facility] Willard HospitalComment on above:Performed By: #### CMADM, BMP #### [facility] [address] [place] [address] Dr. Skylar Ruiz #0.02 10e3/ulNormal0.00-0.03The CentervilleComment on above:Performed By: #### CMADM, BMP #### [facility] [address] [place] [address] Dr. Skylar Ruiz %0.3 %Normal0.0-0.5The CentervilleComment on above: Performed By: #### CMADM, BMP #### [facility] [address] [place] [address] Dr. Skylar Jackson #2.2 103/ulNormal1.2-3.8The CentervilleComment on above:Performed By: #### CMADM, BMP #### [facility] [address] [place] [address] Dr. Skylar Moscosohocytes/100 WBC (Bld)30.3 %Rkohha64.5-60.0The CentervilleComment on above:Performed By: #### CMADM, BMP #### [facility] [address] [place] [address] Dr. Skylar HobbsUAL DIFF REQNONormalThe CentervilleComment on above: Performed By: #### CMADM, BMP #### [facility] [address] [place] [address] Dr. Skylar Taylor (RBC) [Entitic mass]29.3 bcNvkuwq87.9-34.0The CentervilleComment on above:Performed By: #### CMADM, BMP #### [facility] [address] [place] [address] Dr. Skylar Fraser (RBC) [Mass/Vol]32.8 g/oGSicurp36.9-35.2The CentervilleComment on above:Performed By: #### CMADM, BMP #### [facility] [address] [place] [address] Dr. Skylar Goff (RBC) [Entitic vol]89.2 eXYwjnwb85.0-94.0The CentervilleComment on above:Performed By: #### CMADM, BMP #### [facility] [address] [place] [address] Dr. Skylar Bhardwaj #0.8 103/ulNormal0.3-0.8The CentervilleComment on above:Performed By: #### CMADM, BMP #### [facility] [address] [place] [address] Dr. Skylar Dasilvaocytes/100 WBC (Bld)10.9 %Normal1.7-12.0The [facility] Comment on above:Performed By: #### CMADM, BMP #### [facility] [address] [place] [address] Dr. Skylar Arreguin #4.0 103/ulNormal1.4-6.5The CentervilleComment on above:Performed By: #### CMADM, BMP #### [facility] [address] [place] [address] Dr. Skylar Kumarutrophils/100 WBC (Bld)55.0 %Zyhqwd78.0-75.0The CentervilleComment on above:Performed By: #### CMADM, BMP #### [facility] [address] [place] [address] Dr. Skylar Carrington mean volume (Bld) [Entitic vol]10.3 fLNormal9.5-13.5The Galileo HospitalComment on above:Performed By: #### CMADM, BMP #### [facility] [address] [place] [address] Dr. Skylar ByrnesT289 103/vrSdgfdr502-137Tdb [facility] on above: Performed By: #### CMADM, BMP #### [facility] [address] [place] [address] Dr. Skylar ChadwickRBC4.17 106/ulCritically low4.70-6.10The [facility] on above:Performed By: #### CMADM, BMP #### [facility] [address] [place] [address] Dr. Skylar ChadwickWBC7.2 103/ulNormal4.0-11.0The [facility] on above: Performed By: #### CMADM, BMP #### [facility] [address] [place] [address] Dr. Skylar Montgomery 15-29-7326RVB3.3 mg/dLCritically high<=1.0The [facility] on above:Performed By: #### URIC, CMP, CRP #### [facility] [address] [place] [address] Dr. Skylar Church 14(COMP METB)on 37-42-1954Uhzuqax [Mass/Vol]3.4 g/dLNormal 3.4-5.0The [facility] on above:Performed By: #### URIC, CMP, CRP #### [facility] [address] [place] [address] Dr. Skylar ChadwickAlbumin/Globulin [Mass ratio]0.7 {ratio}NormalThe [facility] on above:Performed By: #### URIC, CMP, CRP #### [facility] [address] [place] [address] Dr. Skylar rL [Catalytic activity/Vol]72 U/QQqwquh81-270Ink [facility] on above:Performed By: #### URIC, CMP, CRP #### [facility] [address] [place] [address] Dr. Skylar KumarT [Catalytic activity/Vol]28 U/DPnjxfl44-09Hyp CentervilleComment on above:Performed By: #### URIC, CMP, CRP #### [facility] [address] [place] [address] [address] Skylar ChadwickAnion gap [Moles/Vol]9.9 mmol/LNormalThe CentervilleComment on above:Performed By: #### URIC, CMP, CRP #### [facility] [address] [place] [address] [address] Skylar ChadwickAST [Catalytic activity/Vol]19 U/SBponzk15-94Jjx CentervilleComment on above:Performed By: #### URIC, CMP, CRP #### [facility] [address] [place] [address] Dr. Skylar ChadwickBilirubin [Mass/Vol]0.3 mg/dLNormal0.2-1.0The [facility] Comment on above:Performed By: #### URIC, CMP, CRP #### [facility] [address] [place] [address] Dr. Skylar ChadwickCalcium [Mass/Vol]9.8 mg/dLNormal8.5-10.1The [facility] Comment on above:Performed By: #### URIC, CMP, CRP #### [facility] [address] [place] [address] Dr. Skylar ChadwickChloride [Moles/Vol]103 mmol/BNychab28-073Xiq [facility] Comment on above:Performed By: #### URIC, CMP, CRP #### [facility] [address] [place] [address] Dr. Skylar ChadwickCO2 [Moles/Vol]31.0 mmol/XDllyci71.0-32.0The [facility] Comment on above:Performed By: #### URIC, CMP, CRP #### [facility] [address] [place] [address] Dr. Skylar ChadwickCreatinine [Mass/Vol]1.14 mg/dLNormal0.70-1.30The CentervilleComment on above:Performed By: #### URIC, CMP, CRP #### [facility] [address] [place] [address] [address] Skylar BurnhamGFR-AF CYMRAES>60Normal>=60The CentervilleComment on above:Performed By: #### URIC, CMP, CRP #### [facility] [address] [place] [place] [address] [address] Skylar BurnhamGFR-NON AF CYMRAES>60Normal>=60The CentervilleComment on above:Performed By: #### URIC, CMP, CRP #### [facility] [address] [place] [place] [address] [address] Skylar ChadwickGlobulin (S) [Mass/Vol]4.8 g/dLNormalThe CentervilleComment on above:Performed By: #### URIC, CMP, CRP #### [facility] [address] [place] [address] [address] Skylar ChadwickGlucose [Mass/Vol]88 mg/sZUalcwv81-492GglMercy Health Willard Hospital Comment on above:Performed By: #### URIC, CMP, CRP #### [facility] [address] [place] [place] [address] [address] Skylar ChadwickPotassium [Moles/Vol]3.9 mmol/LNormal3.5-5.1The [facility] Comment on above:Performed By: #### URIC, CMP, CRP #### [facility] [address] [place] [address] [address] Skylar ChadwickProtein [Mass/Vol]8.2 g/dLNormal6.4-8.2[facility] Comment on above:Performed By: #### URIC, CMP, CRP #### [facility] [address] [place] [address] [address] Skylar ChadwickSodium [Moles/Vol]140 mmol/XMqkpcr587-983Aeq [facility] Comment on above:Performed By: #### URIC, CMP, CRP #### [facility] [address] [place] [address] [address] Skylar ChadwickUrea nitrogen [Mass/Vol]18.0 mg/dLNormal7.0-18.0The [facility] HospitalComment on above:Performed By: #### URIC, CMP, CRP #### [facility] [address] [place] [address] [address] Skylar ChadwickUrea nitrogen/Creatinine [Mass ratio]15.8 mg/mgNoOhioHealth Marion General HospitalComment on above:Performed By: #### URIC, CMP, CRP #### [facility] [address] [place] [address] Dr. Skylar ChadwickSED RATE WESTERGRENon 75-51-2866XTR RATE67 mm/hrCritically high <=20The CentervilleComment on above:Performed By: #### CMADM, BMP #### [facility] [address] [place] [address] Dr. Skylar ChadwickURIC ACID SERUMon 26-43-8802Anraf [Mass/Vol]3.3 mg/dLCritically low3.5-7.2The CentervilleComment on above:Performed By: #### URIC, CMP, CRP #### [facility] [address] [place] [address] Dr. Skylar ChadwickXR KNEE LT 3Von 81-22-8648RT KNEE LT 3VEXAM: XR KNEE LT 3V HISTORY: Effusion of joint of left knee COMPARISON: None. TECHNIQUE: 3 views FINDINGS: There is no acute fracture or dislocation. No radiopaque foreign body. The soft tissues are unremarkable. IMPRESSION: No acute fracture or dislocation. Electronically authenticated by: BONNIE RODRIGUES Date: 2022-11-02 14:46[facility] EastECHOCARDIO M/2D COMPLETEon 22-75-8267TSFRVVSCMA M/2D COMPLETE Patient: KRISTY DOHERTY Exam Date: 10/28/2022 : 1955 Gender:M Ordering : DR BORIS WILLIAM M.D. Admission #: [id number] Family : Order #: [id number] CLICK HERE TO VIEW EXAM ECHOCARDIOGRAM REPORT [...] by: Boris William M.D. on 10/30/2022 at 19:19[facility] EastXR CHEST 2 Von 48-84-3528XO CHEST 2 VEXAM: XR CHEST 2 V [...] Electronically authenticated by: ASIF COLVIN Date: 2022-09-05 15:49[facility] EastECHOCARDIO M/2D COMPLETEon 48-59-0539WXVWEJFMIU M/2D COMPLETE Patient: KRISTY DOHERTY Exam Date: 08/18/2022 : 1955 Gender:M Ordering : MILDRED LOGAN Admission #: [id number] Family : Order #: [id number] CLICK HERE TO VIEW EXAM ECHOCARDIOGRAM REPORT [...] Area (VTI): 2.22 cm2, 2.22 cm2 Deceleration [place]: 1.61 m/s2 Pressure Half-Time: 686.93 ms Peak [...] by: Boris William M.D. on 08/19/2022 at 17:24[facility] EastCARDIAC BONNIE 3-6on 28-80-6093UO [Catalytic activity/Vol]231 U/LNormal 39-308The CentervilleComment on above:Performed By: #### CMREP #### [facility] [address] [place] [address] Dr. Skylar Lin.MB [Mass/Vol]1.39 ng/mLNormal<=3.60The [facility] Comment on above:Performed By: #### CMREP #### [facility] [address] [place] [address] [address] Skylar MoctezumaOP41.4 pg/mLNormal4.0-76.1The CentervilleComment on above:Result Comment: CUT-OFF POINTS HAVE BEEN ESTABLISHED BASED ON THE FOURTH UNIVERSAL DEFINITIONS OF MYOCARDIAL INFARCTION. THE UPPER REFERENCE LIMIT (URL) OF TROPONIN, DEFINED THE 99TH PERCENTILE OF cTnI DISTRIBUTION IN A REFERENCE POPULATION, HAS BEEN CONFIRMED THE DECISION THRESHOLD FOR WA DIAGNOSIS.Performed By: #### CMREP #### [facility] [address] [place] [address] Dr. Skylar Lin [Catalytic activity/Vol]214 U/RKjianc18-677Egu CentervilleComment on above:Performed By: #### CMREP #### [facility] [address] [place] [address] Dr. Skylar Lin.MB [Mass/Vol]1.37 ng/mLNormal<=3.60The [facility] Comment on above:Performed By: #### CMREP #### [facility] [address] [place] [address] Dr. Skylar FlorTROP37.0 pg/mLNormal4.0-76.1The CentervilleCommymichigan medical center [facility] branch on above:Result Comment: CUT-OFF POINTS HAVE BEEN ESTABLISHED BASED ON THE FOURTH UNIVERSAL DEFINITIONS OF MYOCARDIAL INFARCTION. THE UPPER REFERENCE LIMIT (URL) OF TROPONIN, DEFINED THE 99TH PERCENTILE OF cTnI DISTRIBUTION IN A REFERENCE POPULATION, HAS BEEN CONFIRMED THE DECISION THRESHOLD FOR [place] DIAGNOSIS.Performed By: #### CMREP #### [facility] [address] [place] [address] Dr. Skylar Jovel AUTO DIFFon 79-44-2266RQZC #0.1 103/ulNormal0.0-0.1The CentervilleComment on above:Performed By: #### CMADM, BMP #### [facility] [address] [place] [address] Dr. Skylar ChadwickBasophils/100 WBC (Bld)1.3 %Normal0.2-2.0The [facility] Comment on above:Performed By: #### CMADM, BMP #### [facility] [address] [place] [address] Dr. Skylar Chamorro #0.6 103/ulNormal0.0-0.7The CentervilleComment on above: Performed By: #### CMADM, BMP #### [facility] [address] [place] [address] Dr. Skylar Burnhamosinophils/100 WBC (Bld)7.1 %Critically high0.9-7.0The [facility] Hospital - Columbusment on above:Performed By: #### CMADM, BMP #### [facility] [address] [place] [address] Dr. Skylar Burnhamrythrocyte distribution width (RBC) [Ratio]13.0 %Tuzbao58.0-15.0 The CentervilleCommymichigan medical center [facility] branch on above:Performed By: #### CMADM, BMP #### [facility] [address] [place] [address] Dr. Skylar ChadwickHematocrit (Bld) [Volume fraction]37.2 %Critically low42.0-54.0 The CentervilleCommymichigan medical center [facility] branch on above:Performed By: #### CMADM, BMP #### [facility] [address] [place] [address] Dr. Skylar ChadwickHemoglobin (Bld) [Mass/Vol]13.2 g/dLCritically low14.0-18.0The [facility] on above:Performed By: #### CMADM, BMP #### [facility] [address] [place] [address] Dr. Skylar Ruiz #0.02 10e3/ulNormal0.00-0.03The [facility] on above:Performed By: #### CMADM, BMP #### [facility] [address] [place] [address] Dr. Skylar Ruiz %0.3 %Normal0.0-0.5The [facility] on above: Performed By: #### CMADM, BMP #### [facility] [address] [place] [address] Dr. Skylar Jackson #2.2 103/ulNormal1.2-3.8The [facility] on above:Performed By: #### CMADM, BMP #### [facility] [address] [place] [address] Dr. Skylar Lewismphocytes/100 WBC (Bld)27.4 %Rqcban15.5-60.0The CentervilleComment on above:Performed By: #### CMADM, BMP #### [facility] [address] [place] [address] Dr. Skylar Funk DIFF REQNONormalThe CentervilleComment on above: Performed By: #### CMADM, BMP #### [facility] [address] [place] [address] Dr. Skylar Fraser (RBC) [Entitic mass]32.4 ukPzvoax82.9-34.0The CentervilleComment on above:Performed By: #### CMADM, BMP #### [facility] [address] [place] [address] Dr. Skylar Fraser (RBC) [Mass/Vol]35.5 g/dLCritically high29.9-35.2The CentervilleComment on above:Performed By: #### CMADM, BMP #### [facility] [address] [place] [address] Dr. Skylar Goff (RBC) [Entitic vol]91.2 kTFdwvhm07.0-94.0The CentervilleComment on above:Performed By: #### CMADM, BMP #### [facility] [address] [place] [address] Dr. Skylar Bhardwaj #1.1 103/ulCritically high0.3-0.8The [facility] Comment on above:Performed By: #### CMADM, BMP #### [facility] [address] [place] [address] Dr. Skylar Dasilvaocytes/100 WBC (Bld)14.1 %Critically high1.7-12.0The CentervilleComment on above:Performed By: #### CMADM, BMP #### [facility] [address] [place] [address] Dr. Skylar Arreguin #4.0 103/ulNormal1.4-6.5The CentervilleComment on above:Performed By: #### CMADM, BMP #### [facility] [address] [place] [address] Dr. Skylar Kumarutrophils/100 WBC (Bld)49.8 %Gjdtat48.0-75.0The CentervilleComment on above:Performed By: #### CMADM, BMP #### [facility] [address] [place] [address] Dr. Skylar Flowerslet mean volume (Bld) [Entitic vol]10.5 fLNormal9.5-13.5The CentervilleComment on above:Performed By: #### CMADM, BMP #### [facility] [address] [place] [address] Dr. Skylar ChadwickPLT159 103/uaBuuosb252-818Nin CentervilleComment on above: Performed By: #### GABYDM, BMP #### [facility] [address] [place] [address] Dr. Skylar ChadwickRBC4.08 106/ulCritically low4.70-6.10The CentervilleComment on above:Performed By: #### CMADM, BMP #### [facility] [address] [place] [address] Dr. Skylar ChadwickWBC8.0 103/ulNormal4.0-11.0The CentervilleComment on above: Performed By: #### GABYDM, BMP #### [facility] [address] [place] [address] Dr. Skylar ChadwickCovid-19 PCR ([facility])on 48-93-9347YONZ-CoV-2 (COVID-19) RNA DANDY+probe Ql (Unsp spec)Not detectedNormalNOT DETECTEDThe [facility] Comment on above:Result Comment: When diagnostic testing [...] for this test is supported by the [place] [employer] of [employer] and Human Service's declaration that [...] longer be used).Performed By: #### CVDTBH #### [facility] [address] [place] [address] Dr. Skylar GaliciaCARDIPorsha M/2D COMPLETEon 22-13-7152FCTCLICBOV M/2D COMPLETE Patient: KRISTY DOHERTY Exam Date: 07/02/2022 : 1955 Gender:M Ordering : EDDIE SISTER Admission #: [id number] Family : DR RUDY KING . Order #: [id number] CLICK HERE TO VIEW EXAM ECHOCARDIOGRAM REPORT [...] by: Krystina Mills M.D. on 07/02/2022 at 14:11[facility] EastPROF CHEM 8 (BAS METB)on 98-10-4764Uilni gap [Moles/Vol]8.4 mmol/LNormal The CentervilleComment on above:Performed By: #### BMP #### [facility] [address] [place] [address] Dr. Skylar ChadwickCalcium [Mass/Vol]8.3 mg/dLCritically low8.5-10.1The CentervilleComment on above:Performed By: #### BMP #### [facility] [address] [place] [address] Dr. Skylar ChadwickChloride [Moles/Vol]97 mmol/LCritically zom48-574Eaf [facility] on above:Performed By: #### BMP #### [facility] [address] [place] [address] Dr. Skylar ChadwickCO2 [Moles/Vol]32.9 mmol/LCritically high21.0-32.0The CentervilleComment on above:Performed By: #### BMP #### [facility] [address] [place] [address] Dr. Skylar ChadwickCreatinine [Mass/Vol]1.08 mg/dLNormal0.70-1.30The [facility] on above:Performed By: #### BMP #### [facility] [address] [place] [address] Dr. Cheng ChangEGFR-AF CYMRAES>60Normal>=60The CentervilleComment on above:Performed By: #### BMP #### [facility] [address] [place] [address] Dr. Skylar BurnhamGFR-NON AF CYMRAES>60Normal>=60The CentervilleComment on above:Performed By: #### BMP #### [facility] [address] [address] [address] Skylar ChadwickGlucose [Mass/Vol]114 mg/dLCritically kzrx93-144Efx CentervilleComment on above:Performed By: #### BMP #### [facility] [address] [address] [address] Skylar ChadwickPotassium [Moles/Vol]3.3 mmol/LCritically low3.5-5.1The CentervilleComment on above:Performed By: #### BMP #### [facility] [address] [address] [address] Skylar ChadwickSodium [Moles/Vol]135 mmol/LCritically jes672-514Wnl CentervilleComment on above:Performed By: #### BMP #### [facility] [address] [address] [address] Skylar ChadwickUrea nitrogen [Mass/Vol]13.0 mg/dLNormal7.0-18.0The CentervilleComment on above:Performed By: #### BMP #### [facility] [address] [place] [address] Dr. Skylar Ladd nitrogen/Creatinine [Mass ratio]12.0 mg/mgNormalThe CentervilleComment on above:Performed By: #### BMP #### [facility] [address] [address] [address] Skylar ChadwickAnion gap [Moles/Vol]8.6 mmol/LNormalThe CentervilleComment on above:Performed By: #### CMADM, BMP #### [facility] [address] [address] [address] Skylar ChadwickCalcium [Mass/Vol]8.6 mg/dLNormal8.5-10.1The [facility] Comment on above:Performed By: #### CMADM, BMP #### [facility] [address] [place] [address] Dr. Skylar ChadwickChloride [Moles/Vol]96 mmol/LCritically tgz24-507Fkl [facility]ervilleComment on above:Performed By: #### CMADM, BMP #### [facility] [address] [address] [address] Skylar ChadwickCO2 [Moles/Vol]34.2 mmol/LCritically high21.0-32.0The CentervilleComment on above:Performed By: #### CMADM, BMP #### [facility] [address] [address] [address] Skylar ChadwickCreatinine [Mass/Vol]1.05 mg/dLNormal0.70-1.30The CentervilleComment on above:Performed By: #### CMADM, BMP #### [facility] [address] [address] [address] Cheng ChangEGFR-AF CYMRAES>60Normal>=60The CentervilleComment on above:Performed By: #### CMADM, BMP #### [facility] [address] [address] [address] Skylar BurnhamGFR-NON AF CYMRAES>60Normal>=60The CentervilleComment on above:Performed By: #### CMADM, BMP #### [facility] [address] [address] [address] Skylar ChadwickGlucose [Mass/Vol]113 mg/dLCritically riph95-059Esi [facility]ervilleComment on above:Performed By: #### CMADM, BMP #### [facility] [address] [place] [address] Dr. Skylar ChadwickPotassium [Moles/Vol]2.8 mmol/LCritically low3.5-5.1The CentervilleComment on above:Performed By: #### CMADM, BMP #### [facility] [address] [place] [address] Dr. Skylar ChadwickSodium [Moles/Vol]136 mmol/GOdnvkl422-933Xjj [facility] on above:Performed By: #### CMADM, BMP #### [facility] [address] [address] [address] Skylar ChadwickUrea nitrogen [Mass/Vol]10.0 mg/dLNormal7.0-18.0The CentervilleComment on above:Performed By: #### CMADM, BMP #### [facility] [address] [place], [place] [address] Dr. Skylar ChadwickUrea nitrogen/Creatinine [Mass ratio]9.5 mg/mgNormalThe CentervilleComment on above:Performed By: #### CMADM, BMP #### [facility] [address] [address] [address] Skylar Kendrick CAROTID ART BILon 73-47-5305AH CAROTID ART BILEXAMINATION: US CAROTID ART SHIRA [...] Electronically authenticated by: ASIF JOHN Date: 2022-07-02 11:23[facility] EastCARDIAC BONNIE ADMITon 46-93-3005TT [Catalytic activity/Vol]201 U/PImxfbs53-456Prs CentervilleComment on above:Performed By: #### KEVIN, BMP #### [facility] [address] [place] [address] Dr. Skylar Lin.MB [Mass/Vol]1.31 ng/mLNormal<=3.60The [facility] Comment on above:Performed By: #### CMADM, BMP #### [facility] [address] [place] [address] Dr. Skylar ChadwickHSTROP34.8 pg/mLNormal4.0-76.1The [facility] Hospital - Columbusment on above:Result Comment: CUT-OFF POINTS HAVE BEEN ESTABLISHED BASED ON THE FOURTH UNIVERSAL DEFINITIONS OF MYOCARDIAL INFARCTION. THE UPPER REFERENCE LIMIT (URL) OF TROPONIN, DEFINED THE 99TH PERCENTILE OF cTnI DISTRIBUTION IN A REFERENCE POPULATION, HAS BEEN CONFIRMED THE DECISION THRESHOLD FOR WA DIAGNOSIS.Performed By: #### CMADM, BMP #### [facility] [address] [place] [address] Dr. Skylar ChadwickMYO336 ng/mLCritically tgsq89-02Ego CentervilleComment on above:Performed By: #### CMADM, BMP #### [facility] [address] [place] [address] Dr. Skylar CastleC AUTO DIFFon 43-41-5227QPHG #0.1 103/ulNormal0.0-0.1The CentervilleComment on above:Performed By: #### CBC #### [facility] [address] [place] [address] Dr. Skylar ChadwickBasophils/100 WBC (Bld)1.2 %Normal0.2-2.0[facility] Comment on above:Performed By: #### CBC #### [facility] [address] [place] [address] Dr. Skylar Chamorro #0.5 103/ulNormal0.0-0.7The CentervilleComment on above: Performed By: #### CBC #### [facility] [address] [place] [address] Dr. Skylar Burnhamosinophils/100 WBC (Bld)6.3 %Normal0.9-7.0The [facility] Comment on above:Performed By: #### CBC #### [facility] [address] [place] [address] Dr. Skylar Burnhamrythrocyte distribution width (RBC) [Ratio]12.9 %Kjbqcw45.0-15.0 The CentervilleComment on above:Performed By: #### CBC #### [facility] [address] [place] [address] Dr. Skylar Vazquezatocrit (Bld) [Volume fraction]38.0 %Critically low42.0-54.0 The CentervilleComment on above:Performed By: #### CBC #### [facility] [address] [place] [address] Dr. Skylar ChadwickHemoglobin (Bld) [Mass/Vol]13.5 g/dLCritically low14.0-18.0The CentervilleCommymichigan medical [facility] on above:Performed By: #### CBC #### [facility] [address] [place] [address] Dr. Skylar Ruiz #0.02 10e3/ulNormal0.00-0.03The [facility] on above:Performed By: #### CBC #### [facility] [address] [place] [address] Dr. Skylar Ruiz %0.2 %Normal0.0-0.5The CentervilleComment on above: Performed By: #### CBC #### [facility] [address] [place] [address] Dr. Skylar Jackson #2.6 103/ulNormal1.2-3.8The [facility] on above:Performed By: #### CBC #### [facility] [address] [place] [address] Dr. Skylar Lewismphocytes/100 WBC (Bld)30.5 %Ydnyog75.5-60.0The CentervilleComment on above:Performed By: #### CBC #### [facility] [address] [place] [address] Dr. Skylar HobbsUAL DIFF REQNONormalThe CentervilleComment on above: Performed By: #### CBC #### [facility] [address] [place] [address] Dr. Skylar Taylor (RBC) [Entitic mass]32.2 dvRfzcgr50.9-34.0The [facility] HospitalComment on above:Performed By: #### CBC #### [facility] [address] [place] [address] Dr. Skylar Fraser (RBC) [Mass/Vol]35.5 g/dLCritically high29.9-35.2The CentervilleComment on above:Performed By: #### CBC #### [facility] [address] [place] [address] Dr. Skylar Fraser (RBC) [Entitic vol]90.7 wBXrsygi43.0-94.0The CentervilleComment on above:Performed By: #### CBC #### [facility] [address] [place] [address] Dr. Skylar Bhardwaj #1.2 103/ulCritically high0.3-0.8The [facility] Comment on above:Performed By: #### CBC #### [facility] [address] [place] [address] Dr. Skylar Dasilvaocytes/100 WBC (Bld)14.3 %Critically high1.7-12.0The CentervilleComment on above:Performed By: #### CBC #### [facility] [address] [place] [address] Dr. Skylar Arreguin #4.0 103/ulNormal1.4-6.5The CentervilleComment on above:Performed By: #### CBC #### [facility] [address] [place] [address] Dr. Skylar Kumarutrophils/100 WBC (Bld)47.5 %Oivcih87.0-75.0The CentervilleComment on above:Performed By: #### CBC #### [facility] [address] [place] [address] Dr. Skylar Flowerslet mean volume (Bld) [Entitic vol]10.4 fLNormal9.5-13.5The CentervilleComment on above:Performed By: #### CBC #### [facility] [address] [place] [address] Dr. Skylar ByrnesT175 103/xbNydizj836-298Hmk [facility]ervilleComment on above: Performed By: #### CBC #### [facility] [address] [place] [address] Dr. Skylar ChadwickRBC4.19 106/ulCritically low4.70-6.10The CentervilleComment on above:Performed By: #### CBC #### [facility] [address] [address] [address] Skylar ChadwickWBC8.4 103/ulNormal4.0-11.0[facility] HospitalComment on above: Performed By: #### CBC #### [facility] [address] [address] [address] Skylar ChadwickCT CSPINE WO CONon 70-04-2815XO CSPINE WO CONEXAMINATION: CT CSPINE WO CON [...] authenticated by: BRIAN BRADSHAW Date: 2022-07-01 21:26NoOhioHealth Marion General HospitalCT HEAD WO CONon 46-08-3297TS HEAD WO CONEXAMINATION: CT HEAD WO CON [...] of the sinuses are not in the oqghr-dc-cumn. The middle ears are aerated the mastoid [...] Electronically authenticated by: ADIEL KERN Date: 2022-07-01 20:44[facility] EastD-DIMERon 63-33-1458K-DIMER0.35 mg/L FEUNormal<=0.59[facility] HospitalComment on above:Performed By: #### KEVIN, BMP #### [facility] [address] [place] [address] Dr. Skylar Rosenbaum-DIMER COMMENTSSEE BELOWWood County Hospitalment on above:Result Comment: Increases in D-Dimer [...] hospitalization. Performed By: #### KEVIN, BMP #### [facility] [address] [place] [address] Dr. Skylar ChadwickPROF CHEM 8 (BAS METB)on 24-31-0888Mkqeq gap [Moles/Vol]13.5 mmol/LNormalThe [facility]estown HospitalComment on above:Performed By: #### CMADM, BMP #### [facility] [address] [address] [address] Skylar ChadwickCalcium [Mass/Vol]8.8 mg/dLNormal8.5-10.1The [facility] Comment on above:Performed By: #### CMADM, BMP #### [facility] [address] [address] [address] Skylar ChadwickChloride [Moles/Vol]94 mmol/LCritically xuh36-830Wdd [facility]ervilleComment on above:Performed By: #### CMADM, BMP #### [facility] [address] [address] [address] Skylar ChadwickCO2 [Moles/Vol]29.0 mmol/BOxdupj64.0-32.0The [facility] Comment on above:Performed By: #### CMADM, BMP #### [facility] [address] [place] [address] Dr. Skylar ChadwickCreatinine [Mass/Vol]1.03 mg/dLNormal0.70-1.30The [facility]ervilleComment on above:Performed By: #### CMADM, BMP #### [facility] [address] [place] [address] Dr. Skylar BurnhamGFR-AF CYMRAES>60Normal>=60The [facility]Comment on above:Performed By: #### CMADM, BMP #### [facility] [address] [place] [address] Dr. Skylar BurnhamGFR-NON AF CYMRAES>60Normal>=60The [facility]ervilleComment on above:Performed By: #### CMADM, BMP #### [facility] [address] [address] [address] Skylar ChadwickGlucose [Mass/Vol]111 mg/dLCritically acwx50-538Cvv [facility]Comment on above:Performed By: #### CMADM, BMP #### [facility] [address] [place] [address] Dr. Skylar ChadwickPotassium [Moles/Vol]2.5 mmol/LCritically low3.5-5.1The [facility]ervilleComment on above:Performed By: #### CMADM, BMP #### [facility] [address] [place] [address] Dr. Skylar ChadwickSodium [Moles/Vol]134 mmol/LCritically xbq347-715Dvk [facility]Comment on above:Performed By: #### GABYDM, BMP #### [facility] [address] [place] [address] Dr. Skylar ChadwickUrea nitrogen [Mass/Vol]12.0 mg/dLNormal7.0-18.0The CentervilleComment on above:Performed By: #### GABYDM, BMP #### [facility] [address] [place] [address] Dr. Skylar Ladd nitrogen/Creatinine [Mass ratio]11.7 mg/mgNoOhioHealth Marion General HospitalComment on above:Performed By: #### KEVIN, BMP #### [facility] [address] [place] [address] Dr. Skylar ChadwickXR CHEST 1 Von 15-20-7247VH CHEST 1 VCXR HISTORY: Shortness of breath COMPARISON: None. TECHNIQUE: 1 view chest submitted for review. FINDINGS: The lungs are adequately expanded without evidence of acute infiltrate or effusion. The cardiac silhouette measures within normal. Pulmonary vascularity is unremarkable. Osseous structures are within normal limits for age. IMPRESSION: No plain film evidence for acute cardiopulmonary disease. Electronically authenticated by: SOBEIDA MONCADA Date: 2022-07-01 20:44[facility] EastOutstakoma regional hospital Colonoscopyon 53-54-5356Bvrlsqd Colonoscopy [id number]#1.00CD:127[facility] Medical CenterRAD - MISCon 96-52-7111LQM - MISC [id number]#1.00CD:[address] [place], [place] [address]XR COLON AIR CONTR.on 01-48-5036SQ COLON AIR CONTR.EXAMINATION: XR COLON AIR CONTR. HISTORY: Colonoscopy abnormal COMPARISON: No relevant comparison available. FLUOROSCOPY TIME: Fluoro time measures 3 minutes 40 seconds and 22 images were obtained. TECHNIQUE: An air contrast barium enema examination was performed in the usual manner. No conservation agent abdominal radiograph was performed. Standard level fluoroscopic mode of operation utilized. FINDINGS: COLON: No focal obstruction, mass or stricture. Mild diverticulosis distal descending and proximal sigmoid colon. OTHER: Negative. IMPRESSION: Mild diverticulosis, otherwise normal exam Electronically authenticated by: ASIF JOHN Date: 2022-01-28 14:[address] [place], [place] [address]Pre-Certification Formon 28-63-4488Xsx-Certification Form [id number]#1.00CD:127[facility] Medical CenterConsent for Procedure/Surgeryon 44-08-5508Pjdrpqz for Procedure/Surgery [id number]#1.00CD:127[facility] Medical CenterAmbulatory Visit Summaryon 70-99-0042Xzwlivzarw Visit Summary KRISTY DOHERTY :1955 Visit Date:01/07/2022 [...] cancer Seasonal allergic rhinitis Vitamin D deficiency [facility] CenterPhysician Referralon 12-19-2021 Physician [id number]#1.00CD:127Normal [facility] Vital Signs Date TimeVital SignValuePerforming QazddxgiePvbwjsvf64-63-3569 13:08-0500Body zrdwef925.72 cmRudy King MD Work Phone: [phone])441-[facility]11-05-2025 13:08-0500 Body mass index (BMI) [Ratio]25 kg/m2Rudy King MD Work Phone: [facility]11-05-2025 13:08-0500 Body ksyjji50.84 kgRudy King MD Work Phone: [facility]11-05-2025 13:08-0500 Diastolic blood mm[Hg]Rudy King MD Work Phone: [facility]11-05-2025 13:08-0500 Heart rate76 /minRudy King MD Work Phone: 1(818)444-[facility]11-05-2025 13:08-0500 Respiratory rate16 /minRudy King MD Work Phone: [phone])890-[facility]11-05-2025 13:08-0500 SaO2% (BldA) [Mass fraction]98 %Rudy King MD Work Phone: [phone])[address]11-05-2025 13:08-0500 Systolic blood woczmafc95 mm[Hg]Rudy King MD Work Phone: 1(070)[address] [place], [place] 9557010-29-2025 09:34-0400 Body ckwsei072.72 cmRudy King MD Work Phone: 1(311)[address]10-29-2025 09:34-0400 Body mass index (BMI) [Ratio]25.7 kg/m2Rudy King MD Work Phone: [phone])[address] [place], [place] 9557010-29-2025 09:34-0400 Body eyjipmjjhkp79.1 [degF]Rudy King MD Work Phone: 1(937)[address] [place], [place] 9557010-29-2025 09:34-0400 Body ezijth64.65 kgRudy King MD Work Phone: [phone])[address] [place], [place] 9557010-29-2025 09:34-0400 Diastolic blood pmqwhebe79 mm[Hg]Rudy King MD Work Phone: [phone]10-29-2025 09:34-0400 Heart oyfn513 /minRudy King MD Work Phone: [phone])[address]10-29-2025 09:34-0400 Respiratory rate20 /minRudy King MD Work Phone: [phone])[address] [place], [place] 9557010-29-2025 09:34-0400 SaO2% (BldA) [Mass fraction]97 %Rudy King MD Work Phone: [phone])[address]10-29-2025 09:34-0400 Systolic blood apeaygar625 mm[Hg]Rudy King MD Work Phone: [phone])[address]07-21-2025 11:01-0400 Body noeabz824.7 cmMariah Lange MD Work Phone: [facility]SmithvilleNlaubrmitz85-84-1460 11:01-0400Body mass index (BMI) [Ratio]28.59 kg/v0RklrlsMariah Lange MD Work Phone: [facility]–SmithvilleTyoacrrwmc47-53-2430 11:01-0400Body wauxhp94.28 kgMariah Lange MD Work Phone: [facility]–SmithvilleVevkaaoeyy10-28-9675 11:01-0400Diastolic blood cpztsqep33 mm[Hg]Mariah Lange MD Work Phone: 1([phone]-[facility]–SmithvilleXxoaegbqxn53-18-5674 11:01-0400Heart rate88 /min Mariah Lange MD Work Phone: [facility]–SmithvilleDcrgglotxf39-40-8293 11:01-0400Systolic blood fadcwrsy875 mm[Hg]Mariah Lange MD Work Phone: [facility]–SmithvilleYlrazqnvxh86-16-5675 15:08-0400Body bisplb169.7 cmRudy King MD Work Phone: [phone] [place], [place] [address]Lxclxbraqm54-19-3155 15:08-0400Body mass index (BMI) [Ratio]29.5 kg/m2Rudy King MD Work Phone: [phone] [place], [place] [address]Lmnizxainp10-04-5540 15:08-0400Body temperature 97.81 [degF]Rudy King MD Work Phone: [facility]–SmithvilleTfnabollio21-83-8582 15:08-0400Body avrsuo50 kg Rudy King MD Work Phone: 1(570)769-[address] [place], [place] [address]Vuorgnhfvl00-41-6220 15:08-0400Diastolic blood isatmpeh78 mm[Hg]Rudy King MD Work Phone: [facility]–SmithvilleMdmwbexoyd09-78-7414 15:08-0400Heart rate94 /min Rudy King MD Work Phone: [facility]–SmithvilleQiiovuopnw47-89-1010 15:08-0400Respiratory rate18 /minRudy King MD Work Phone: 1([phone] [place], [place] [address]Gaqdxwqtop05-38-3194 15:08-2847OdF7% (BldA) [Mass fraction]96 %Rudy King MD Work Phone: [facility] Uiqnhraeur26-39-5413 15:08-0400Systolic blood ixobcuit672 mm[Hg]Rudy King MD Work Phone: [facility] Encounters Encounter DateEncounter TypeCare ProviderFacilityStart: 05-23-2025 End: 61-83-4890zgjwnmjlpeQlta Naderer MD Work Phone: [phone]-GeitnchykSaint [facility] SandStart: 05-23-2025 End: 96-22-2954Jttpiqn encounter procedureCelina Garner MD-[facility] Work Phone: Start: 36-15-0971pqofkvlwjkHIKPMercy Health St. 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 Work Phone: Start: 05-14-2025 End: 72-83-3588ysekrlihnbPTIB [facility] Campustart: 39-43-6710nsumrzabosEWHPMercy Health St. Rita's Medical Centertart: 85-06-9067Mnv-patient / Non-visitOutside Provider-[facility] Work Phone: Start: 73-28-8694Qtofsmzkkn and management of inpatientRAJESH DAYAMICentervilletart: 05-03-2025 Evaluation and management of inpatientOMAR HORANITrinity Health Systemtart: 39-31-5642Ajrwkvqoou and management of inpatientBLAIR ROCÍO [facility] Systemtart: 69-29-5804Sngkzlmbeu and management of inpatientAADIL MAQSWhite Hospitaltart: 04-28-2025 Evaluation and management of inpatientAADIL MARiverside Methodist Hospitaltart: 31-11-1386Datuwtcofr and management of inpatientAADIL LINETTE [facility] Systemtart: 26-24-6197Ssvsnbqfcw and management of inpatientOMAR HORANITrinity Health Systemtart: 04-23-2025 Evaluation and management of inpatientSAMAR [facility] DISTRICTYTrinity Health Systemtart: 96-85-1303Yowdzrnwms and management of inpatientIDREES KACEYClermont County Hospitaltart: 07-62-8678Hbwgkmhzib and management of inpatientCHRISTOPHER [facility] Medical Centertart: 04-19-2025 Evaluation and management of inpatientCHRISTOPHER [facility] Centertart: 55-87-1085Hgqymkcyza and management of inpatientSAMER J [facility] Cancer Centertart: 15-48-1576Gokzyglqfk and management of inpatientKYLE WESTCleveland Clinic South Pointe Hospitaltart: 04-19-2025 End: 57-84-1791Sofsoartgy and management of inpatientCALEB T JOSE MANUELCleveland Clinic Avon Hospitaltart: 41-34-2958Ynt-patient / Non-visitDaryl T Austin KLEIN-[facility] Work Phone: Start: 49-58-5646Fpj-patient / Non-visitDaryl T Asutin KLEIN-[facility] Work Phone: Start: 04-03-2025 End: 39-99-3988xsmmekwtaiZEYNJSECleveland Clinic Mercy Hospitaltart: 03-26-2025 End: 49-82-5977cuondizcewGWNJLMWParkwood Hospitaltart: 86-72-9128mkmpgufezgFIBEI GRUBBUniSt. Francis Hospitaltart: 11-00-7644zpegldcwafGWLVZWadsworth-Rittman Hospitaltart: 02-26-2025 End: 24-16-8617jhqtidficwPZJSQK [facility] Start: 19-21-6407fyqrepnbjdAWSBGreen Cross Hospitaltart: 01-78-9882knrdkdhhlhDLXRQKettering Health Washington Townshiptart: 07-06-1870Mphpksfcjz and management of inpatientMELINDA [facility] Hospitaltart: 02-06-2025 End: 40-19-2098Vmghukurkb and management of inpatientGEORGE St. Charles Hospitaltart: 02-05-2025 End: 32-96-2206Zkklrwstacey Lange MD Work Phone: noms CI ENTStart: 02-05-2025 End: 00-93-5265Kezlildolly Lange MD Work Phone: noms CI ENTStart: 02-05-2025 End: 63-83-0155Vacawx outpatient visit 15 minutesMariah Lange MD Work Phone: noms CI ENTComment on above:Nasal polyp (Primary Dx) Start: 02-05-2025 End: 46-33-7926oblfmwlwbmRQVDOB H TIMMISNot AvailableStart: 01-30-2025 End: 95-74-1365Fapnvmhcv Result EncounterGeneric External Data ProviderNOMS External Department UnsolicitedStart: 01-30-2025 End: 88-82-5443Vdqqyowyn Result EncounterGeneric External Data ProviderNOMS External Department UnsolicitedStart: 09-23-6238noaaunympnNMPQGreen Cross Hospitaltart: 12-12-2024 End: 08-54-0010Qicczk outpatient visit 25 minutesRudy King MD Work Phone: noms CWM FMComment on above:Benign essential hypertension (CMS/HCC) (Primary Dx); Chronic HFrEF (heart failure with reduced ejection fraction) (CMS/HCC); Mild persistent asthma without complication (CMS/HCC); Paroxysmal atrial fibrillation (CMS/HCC)Start: 12-12-2024 End: 95-07-2630eqexbhhafgECEI NADERERNot AvailableStart: 12-12-2024 End: 59-73-6512Ueuhqgdolly King MD Work Phone: noms [facility] FMStart: 12-12-2024 End: 33-10-5681Lojnxsdolly King MD Work Phone: noms [facility] FMStart: 12-05-2024 End: 76-35-3672Erzkjjqnh Result EncounterGeneric External Data ProviderNOMS External Department UnsolicitedStart: 12-05-2024 End: 46-65-3008Eppaaszzn Result EncounterGeneric External Data ProviderNOMS External Department UnsolicitedStart: 12-01-2024 End: 20-69-8423nxbycabxatHPTJJKFlower Hospital Start: 21-27-6809gwyyxqowqiQPDFGreen Cross Hospitaltart: 03-88-6613jvvwkjmtwiWKHRKHWexner Medical Centertart: 11-07-2024 End: 66-10-7684qhwrihjqfbXHBPWVUMedicine Harrison Community Hospitaltart: 12-48-5736cfesqivsbmSNNYMercy Health St. Rita's Medical Centertart: 28-76-2717fxekaixaxuBSFCWVUMedicine Harrison Community Hospitaltart: 89-20-3000marrbwmxmsWIYKMercy Health St. Rita's Medical Centertart: 08-16-2024 End: 36-63-3083Ulgkruwfb Result EncounterGeneric External Data ProviderNOMS External Department UnsolicitedStart: 08-16-2024 End: 50-03-6885Nuazfsndz Result EncounterGeneric External Data ProviderNOMS External Department UnsolicitedStart: 02-54-8309cyhtgyyxpfXNUNWVUMedicine Harrison Community Hospitaltart: 70-76-3804Ltcrprgjk for preprocedural cardiovascular examinationMercy Health St. Rita's Medical Centertart: 43-07-3603dfpynharbrSEEVKettering Health Behavioral Medical Centertart: 07-03-2024 End: 41-96-1486bfyeeldwfnSHSNUM MOUKALicking Memorial Hospital Start: 38-16-2667iezpfnlqvcCZLGMercy Health St. Rita's Medical Centertart: 13-87-7955kfkkmjbiilUDEGMercy Health St. Rita's Medical Centertart: 06-80-5962qjppvotgckSTMSMercy Health St. Rita's Medical Centertart: 73-46-5641ygmxgpruyoTNFQMercy Health St. Rita's Medical Centertart: 12-14-2023 End: 14-96-1681Avpuiwtqu Result EncounterGeneric External Data ProviderNOMS External Department UnsolicitedStart: 12-14-2023 End: 61-13-2099Wtlhwmpou Result EncounterGeneric External Data ProviderNOMS External Department UnsolicitedStart: 12-03-2022 End: 11-06-7581pryfkqvoljNbmqwz HaladayFacility:[facility] Centertart: 45-87-6485fxrtmanaroRE RUDY A NADERERFacility:R7Akrbt: 11-02-2022 End: 75-57-1725zgiurrqvniKOE APOORVA AICHHOLZFacility:B4Hpklz: 10-28-2022 End: 47-73-1044mvxvhjsnjaML BORIS MOUKARBELFacility:I2Yorip: 09-05-2022 End: 59-16-2213isotbvloomUSNU CHACKOFacility:M0Mwkjq: 90-73-1770uwkugidvtjNN BORIS MOUKARBELFacility:J0Jugwj: 08-18-2022 End: 83-27-9845eroxeksgbnMP RUDY A NADERERFacility:H5Eurgl: 08-18-2022 End: 38-37-5387oatqfwcyrkZY RUDY A NADERERFacility:R7Vjtyy: 08-03-2022 End: 62-06-1146ehitzvekgxSK RUDY A NADERERFacility:C3Lciun: 07-02-2022 End: 24-63-8282drrrupotkaPA MARC A NADERERFacility:E1Gfbkd: 01-28-2022 End: 52-17-7106canvqycogmHH MARC A NADERERFacility:H1 Procedures DateProcedureProcedure DetailPerforming ClinicianStart: 75-57-6134Ubmavb-up visitRAPAULY CASTILLOStart: 86-42-9950Ywcujh-up visitFollow-upCHUCK MCBRIDEERStart: 95-28-7830MUS BASIC METABOLIC PANELGeneric External Data ProviderStart: 59-69-3575KJ ECHO DOPPLER COMPLETEGeneric External Data ProviderStart: 48-01-7078Nhygku-up visitRAPAULY STOCKRUSTAMStart: 52-67-9003YSR BASIC METABOLIC PANEL Generic External Data ProviderStart: 46-14-5135Jnmsxb-up visitRAPAULY STOCKPTAStart: 42-77-8927FI ECHO DOPPLER COMPLETEGeneric External Data ProviderStart: 47-74-2057CbyoofdutkoExmpzfa Provider Plan of Treatment DateCare ActivityDetailAuthorStart: 06-19-2025 End: 20-13-6177Khqsxsa encounter pjgkmehjv47/02/2025 10:00 AM EST [facility] [address] [place] [address] Rudy King MD [address] [place] [address] [facility] FMStart: 22-18-0433Szcvgnjkv vaccinationNOMS HealthcareStart: 02-05-2025 End: 60-66-2420Xstgkdw encounter procedureNOMS CI ENTComment on above:Arrived Start: 12-12-2024 End: 59-13-8743Qtctqlo encounter procedureNOMS CWM FMComment on above:Arrived Start: 27-61-7925Kzrpljzdl vaccinationInfluenza Vaccine (#1)[facility] Start: 15-41-9588Hwflsqjjl for malignant neoplasm of colonNOMS HealthcareStart: 41-77-6716Xyfkmurajyzx Vaccine: 65+ Years (1 of 2 - PCV)Pneumococcal Vaccine: 65+ Years (1 of 2 - PCV)[facility] HealthcareStart: 59-89-0499Xhidajnghhoh Vaccine: 65+ Years (1 of 2 - PCV)Pneumococcal Vaccine: 65+ Years (1 of 2 - PCV)[facility] HealthcareStart: 03-04-1956Medicare Annual Wellness (AWV)Medicare Annual Wellness (AWV)[facility] HealthcareStart: 52-81-6548Uscbgmhtv for malignant neoplasm of colonNOIL HealthcareRenal function 2000 panel - Serum or PlasmaWhite HospitalUS Kidney - bilateralTampa [facility] Immunizations Immunization DateImmunizationNotesCare LsmkdchgIysdwfbb42-33-3354znjtbypngz, tetanus toxoids and pertussis vaccineGeneric ProviderSaint Luke's North Hospital–SmithvilleBpbuftvwms07-13-4663 Pfizer Purple Cap SARS-CoV-2 VaccinationGeneric [facility] 13-73-9017Zgcqap Purple Cap SARS-CoV-2 VaccinationGeneric [facility] HealthIvmzyjelpn14-96-7380hvtxzbsjc virus vaccine, unspecified formulationGeneric [facility] Payers DatePayer CategoryPayerPolicy [id number]-pay2023Medicare (Managed Care)[id number] [id number] [id number] 2.840.1.906546.3.57[id number] 2.840.1.873044.3.57[id number] 2.16.840.1.556188.3.57[id number] 2.16840.1.603023.3.57[id number] 2.16.840.1.137610.3.57[id number] 2.16.840.1.730318.3.57[id number] 2.16.840.1.710424.3.57[id number] 2.16.840.1.756119.3.57[id number] 2.16.840.1.324034.3.57[id number] 2.16.840.1.340050.3.57[id number] 2.16.840.1.826611.3.57[id number] 2.16840.1.782[id number] 2.16.840.1.1400[id number] Social History DateTypeDetailFacilityStart: 76-74-4271Yigxdch smoking status NHISNever smoked tobaccoNOMS HealthcareStart: 36-65-5347Jtrmude use and exposureUser of smokeless tobaccoNOMS HealthcareHistory of tobacco useChews TobaccoNOMS HealthcareStart: 07-22-2023 End: 63-42-8901Dxhifqmjd beverage intakeCurrent drinker of alcohol (finding)NOMS HealthcareStart: 07-22-2023 End: 19-22-9041Aqodizg of Social functionNOMS HealthcareStart: 07-22-2023 End: 69-37-3466Watbtte use panelNOMS HealthcareStart: 90-14-6283Fqulkan Comment caffeine intake: 1-2 cups per day of coffee/teaNOMS HealthcareStart: 1955 Sex assigned at birthNot on fileNOMS HealthcareStart: 05-16-2025 End: 41-21-4563Skqtzrj smoking status NHISEx-smoker (finding)[facility] Medical CenterexMale (finding)[facility] Centertart: 99-23-7462Eqb Assigned At [facility] Hospitaltart: 43-47-9063KqrGdsdMUHH Healthcare Clinical Notes 01-07-2022 to 05-16-2025 Note Date & FtwrPptpIrncytok94-17-3125 Evaluation note* Diagnosis Onset Date Resolution Status Admit Date Benign essential hypertension acuteOctober 2024 9:26amChronic HFrEF (heart failure with reduced ejection fraction)acuteOctober 2024 9:26amCoronary artery disease involving hughes coronary artery of hughes heart wiacuteOctober 2024 9:26amNonischemic cardiomyopathyacuteOctober 2024 9:26amPAF (paroxysmal atrial fibrillation) acuteOctober 2024 9:26amPericardial effusionacuteOctober 2024 9:26am Acute kidney injuryacuteNovember 2024 1:04pmAnemiaacuteNovember 2024 1:04pmBenign essential hypertensionacuteNovember 2024 1:04pmChronic kidney disease, stage 3aacuteNovember 2024 1:04pmGoutacuteNovember 2024 1:04pmHFrEF (heart failure with reduced ejection fraction)acuteNovember 2024 1:04pmHyponatremiaacuteNovember 2024 1:04pm [facility] Work Phone: 1(848) 909-477110-27-2025 NoteUnAvita Health [facility] 05-04-2025 Note05/07/25 1235 communication received that [facility] no longer accepting referrals sent, [facility] by [facility] accepting- sent them AVS and they will call Patient to start servicesFlower Hospital10-17-2025 Note [facility]10-17-2025 NoteUnAvita Health [facility]10-17-2025 NoteUnAvita Health [facility]10-17-2025 Note [facility]10-17-2025 NoteUnAvita Health [facility]10-17-2025 NoteUnAv[facility]10-16-2025 Note [facility]10-16-2025 NoteUnAvita Health [facility]10-16-2025 NoteUnAvita Health [facility]10-16-2025 Note- Nonischemic cardiomyopathy. - Echo this admission showed EF 20%. - Continue Toprol and Farxiga. - Hold Entresto and spironolactone due to hypotension. - Right cath today.[facility]10-16-2025 Note- Neck side. - Fluid cx was sent. - We will order US neck. - Start doxy empirically.[facility]10-16-2025 Note- Nonobstructive. - Continue aspirin, Plavix, Lipitor.[facility] 05-03-2025 Note- Continue Toprol, Farxiga and spironolactone. - Hold Entresto due to LINDA.[facility]10-16-2025 Note- Due to shock. - Required CRRT in ICU. - Monitor Crea while off dialysis. - Avoid nephrotoxic agents.[facility]10-16-2025 Note- Echo on admission showed early tamponade. Patient was taken to agricultural labor camp manager for Pericardiocentesis. Right heart cath was not suggestive for tamponade. 300 ml serosanguinous fluid. - Repeated echo showed mild effusion.[facility] 05-03-2025 Note- Albuterol and switched from his Advair to our equivalent. [facility]10-16-2025 Note- Currently paced. - Status post Watchman. - Continue aspirin and Plavix.[facility]10-16-2025 Note - Required Hensley Stacy and dobutamine in ICU. - Improving.[facility]10-16-2025 Note- Required Hensley Stacy and dobutamine in ICU. - Improving.[facility]10-16-2025 NoteUnAvita [facility]10-16-2025 NoteUn[facility] 05-03-2025 NoteUnAv[facility]10-16-2025 NoteUn[facility]10-15-2025 NoteUn[facility] 05-02-2025 NoteUn[facility]10-15-2025 NoteUn[facility]10-15-2025 NoteUn[facility] 05-02-2025 NoteUn[facility]10-15-2025 NoteUn[facility]10-14-2025 NoteUn[facility] 05-01-2025 NoteUn[facility]10-14-2025 NoteUn[facility]10-14-2025 NoteUn[facility] 05-01-2025 NoteUn[facility]10-14-2025 NoteUn[facility]10-13-2025 NoteUn[facility] 04-30-2025 NoteUn[facility]10-13-2025 NoteUn[facility]10-13-2025 NoteUn[facility] 04-29-2025 NoteUnAv[facility]10-12-2025 NoteF[facility] Hospital10-12-2025 NoteF[facility] 04-29-2025 NoteFlower Hospital10-11-2025 NoteFlower Hospital10-11-2025 NoteF[facility] 04-28-2025 NoteFlower Hospital10-11-2025 NoteFlower Hospital10-10-2025 NoteUnAv[facility] 04-27-2025 NoteUn[facility]10-10-2025 NoteUn[facility]10-10-2025 NoteUn[facility] 04-26-2025 NoteUn[facility]10-09-2025 NoteUn[facility]10-09-2025 NoteUn[facility] 04-26-2025 NoteUn[facility]10-08-2025 NoteUn[facility]10-08-2025 NoteUn[facility] 04-25-2025 NoteUnAv[facility]10-07-2025 Note- Nonischemic cardiomyopathy. - Echo this admission showed EF 20%. - Continue Toprol and Farxiga. - Hold Entresto and spironolactone due to hypotension. - Right cath today.[facility]10-07-2025 Note- Nonobstructive. - Continue aspirin, Plavix, Lipitor.[facility] 04-24-2025 Note- Continue Toprol. - Hold Entresto and spironolactone due to hypotension.[facility]10-07-2025 Note- Albuterol and switched from his Advair to our equivalent.[facility]10-07-2025 Note- CTA chest showed no PE. - Right cath today.[facility]10-07-2025 Note- Currently paced. - Status post Watchman. - Continue aspirin and Plavix.[facility]10-07-2025 Note - Echo showed early tamponade. Patient was taken to agricultural labor camp manager for Pericardiocentesis. Right heart cath was not suggestive for tamponade. 300 ml serosanguinous fluid. - Monitor BP. - Continue colchicine per Cardiology. - Repeated echo showed mild effusion.[facility] 04-24-2025 NoteUnAvita Health [facility]10-07-2025 NoteUnAv[facility]10-07-2025 NoteUn[facility] 04-23-2025 Note- Nonischemic cardiomyopathy. - Echo this admission showed EF 20%. - Continue Toprol and Farxiga. - Hold Entresto and spironolactone due to hypotension.[facility]10-06-2025 Note- Echo showed early tamponade. Patient was taken to agricultural labor camp manager for Pericardiocentesis. Right heart cath was not suggestive for tamponade. 300 ml serosanguinous fluid. - Monitor BP. - Continue colchicine per Cardiology. - Repeated echo showed mild effusion.[facility] 04-23-2025 Note- Continue Toprol. - Hold Entresto and spironolactone due to hypotension.[facility]10-06-2025 Note- We will order CTA chest due to tachycardia. - Left and right cath tomorrow.[facility]10-06-2025 Note- Status post Watchman. - Continue aspirin and Plavix.[facility]10-06-2025 Note - Nonobstructive. - Continue aspirin, Plavix, Lipitor.[facility] 04-23-2025 Note- Albuterol and switched from his Advair to our equivalent. [facility]10-06-2025 NoteUnAvita [facility]10-06-2025 NoteUn[facility]10-05-2025 Note- Status post Watchman. - Continue aspirin and Plavix.[facility]10-05-2025 Note - Albuterol and switched from his Advair to our equivalent.[facility]10-05-2025 Note- Nonischemic cardiomyopathy - Echo this admission showed EF 60%. - Hold Farxiga, Toprol, Entresto, spironolactone due to hypotension. Might resume tomorrow.[facility]10-05-2025 NoteUnAvita [facility]10-05-2025 Note- Hold Toprol, Entresto, spironolactone due to hypotension. Might resume tomorrowUnAvita Health System [facility]10-05-2025 Note- Nonobstructive. - Continue aspirin, Plavix, Lipitor.[facility] 04-22-2025 NoteUnAvita [facility]10-05-2025 NoteUn[facility]10-05-2025 NoteUn[facility] 04-21-2025 Note- Nonischemic cardiomyopathy - Echo this admission showed EF 60%. - Hold Farxiga, Toprol, Entresto, spironolactone due to hypotension.[facility]10-04-2025 NoteUnAv[facility] 04-21-2025 NoteUnAv[facility]10-04-2025 NoteUn[facility]10-04-2025 Note- Nonobstructive. - Continue aspirin, Plavix, Lipitor. - Hold Toprol due to hypotension.[facility]10-04-2025 Note- Hold Toprol, Entresto, spironolactone due to hypotension.[facility]10-04-2025 NoteThis report has been cancelled.[facility]10-04-2025 Note- Restarted patients albuterol and switched from his Advair to our equivalent.[facility]10-04-2025 Note- Status post Watchman. - Continue aspirin and Plavix.[facility]10-04-2025 Note [facility]10-03-2025 NoteUnAvita Health [facility]10-03-2025 Note- Follow up urine Na and osmol. - Improving.[facility]10-03-2025 Note- Hold Toprol, Entresto, spironolactone due to hypotension.[facility] 04-20-2025 Note- Restarted patients albuterol and switched from his Advair to our equivalent.[facility]10-03-2025 Note- Status post Watchman. - Continue aspirin and Plavix.[facility]10-03-2025 Note - Nonischemic cardiomyopathy with recovery. - Echo this admission showed EF 60%. - Hold Farxiga, Toprol, Entresto, spironolactone due to hypotension.[facility]10-03-2025 Note- Nonobstructive. - Continue aspirin, Plavix, Lipitor. - Hold Toprol due to hypotension.[facility]10-03-2025 NoteUnAvita Health [facility]10-03-2025 NoteUnAv[facility]10-03-2025 NoteUn[facility]10-03-2025 Note [facility]10-02-2025 NoteUnAv[facility]10-02-2025 NoteUnAv[facility]10-02-2025 Note [facility]10-02-2025 NoteSatisfactory for evaluation. Examination of the ThinPrep slide and cell block reveals rare benign mesothelial cells and abundant acute inflammation.[facility] Comment on above:Performed By: #### LAB13 ####[facility] (ANGELITA)[address], [place] [phone] NoteThis report has been cancelled. [facility]10-02-2025 NoteSodium 126 Will continue to monitor Urine sodium and serum osmolality orderedUnAvita Health System [facility] 04-19-2025 NoteContinue aspirin plavix and lipitor EKG is mostly unchanged from previous Troponins at outside hospital were downtrending from 11.5 to 10.5UnAv[facility]10-02-2025 NotePatient states he has been hypotensive for two weeks Holding antihypertensives for now Will continue to monitor patients blood pressureUnAvita Health System Bucyrus Hospital10-02-2025 NoteRestarted patients albuterol and switched from his Advair to our equivalentUnAvita Health System [facility]10-02-2025 Noteatrial fibrillation status post Watchman - Will continue aspirin and plavix Will continue to monitorUnAvita Health System [facility] Hospital10-02-2025 Note [facility]10-02-2025 NoteUnAvita Health [facility]10-02-2025 NoteUnAvita Health [facility]09-16-2025 Note [facility]08-11-2025 NoteUnAvita Health [facility]07-23-2025 Hyeb60-ayq post Watchman CTA orderUnAvita Health System [facility]rus Hospital07-21-2025 History of Present illness Narrative* Mariah [...] fraction) (HCC) 07/06/2022 Coronary artery disease involving hughes coronary artery of hughes heart without angina pectoris 07/06/2022 Depressive disorder [...] prescribed. Continue current regimen documented in this encounterSaint Luke's North Hospital–[id number] History of Present illness Narrative* Rudy King [...] device to stop anticoagulation. documented in this encounterSaint Luke's North Hospital–[id number] NoteUnAvita Health [facility]12-16-2024 NoteUnAvita Health [facility]01-31-2023 Note PROCEDURE: XR FOOT LT MIN [...] Electronically authenticated by: BRIAN BRADSHAW Date: 2022-08-18 15:43[facility]01-17-2023 NotePROCEDURE: XR FOOT LT MIN 3 VIEWS COMPARISON: None. HISTORY: Pain in left foot FINDINGS: BONES:No acute fracture or dislocation. Mild enthesopathic spurring of the calcaneus at the Achilles and plantar insertions. Mild degenerative changes of the midfoot SOFT TISSUES:Negative. No visible soft tissue swelling. EFFUSION:None visible. OTHER: Negative. IMPRESSION: No acute abnormality Electronically authenticated by: ASIF ALVARO Date: 2022-08-04 08:48The [id number] NoteOPERATIVE NOTE OPERATION DATE: 01/28/2022 PREOPERATIVE DIAGNOSIS: [...] in 10 years. CC: Rudy King M.D. [facility] Signed and Approved by: DR RAVI DOMINGUEZ . 01/30/2022 12:35:00The [id number] NoteChief Complaint consultation for screening colonoscopy HPI [...] lung: Brother. Primary malignant neoplasm of prostate: Brother.[facility] Comment on above:Result Comment: Electronically Signed By: [...] (CMS/HCC) Atrial fibrillation documented in this encounter [facility] HealthcareEvaluation note* Diagnosis Benign essential [...] Unspecified nasal polyp documented in this encounter [facility] HealthcareEvaluation note* Diagnosis Onset Date Resolution Status Admit Date Benign essential hypertension acuteOctober 2024 9:26amChronic HFrEF (heart failure with reduced ejection fraction)acuteOctober 2024 9:26amCoronary artery disease involving hughes coronary artery of hughes heart wiacuteOctober 2024 9:26amNonischemic cardiomyopathyacuteOctober 2024 9:26amPAF (paroxysmal atrial fibrillation) acuteOctober 2024 9:26amPericardial effusionacuteOctober 2024 9:26am [facility] Work Phone: Reason for referral (narrative)No reason for referral information availableOur Lady Of Mercy Hospital Work Phone: Summary Purpose Family History No [...] 2025 9:26am Coronary artery disease invo lving hughes coronary artery of hughes heart wi May 16, 2025 9:26am Nonischemic [...] 2025 9:26am Coronary artery disease invo lving hughes coronary artery of hughes heart wi May 16, 2025 9:26am Nonischemic [...] section and content) DATE CREATED AUTHOR 02/04/2022 [facility] DATE CREATED AUTHOR AUTHOR'S ORGANIZ ATION 11/27/2022 [facility] DATE CREATED AUTHOR AUTHOR'S ORGANIZ ATION 12/25/2022 [facility] DATE CREATED AUTHOR AUTHOR'S ORGANIZ ATION 02/06/2025 [facility] DATE CREATED AUTHOR AUTHOR'S ORGANIZ ATION 05/28/2025 [facility] Care Teams (unrecognized sec tion and content) Team MemberRelationshipSpecialtyStart DateEnd Date Rudy King MD [address] [place] [address] PCP - [facility]01/17/24Team MemberRelationshipSpecialtyStart DateEnd Date Rudy King MD [address] [place] [address] [facility] - [facility]01/17/24Team MemberRelationshipSpecialtyStart DateEnd Date Rudy King MD [address] [place] [address] [facility] - [facility]01/17/24Team MemberRelationshipSpecialtyStart DateEnd Date Rudy King MD [address] [place] [address] [facility] - [facility]01/17/24Team MemberRelationshipSpecialtyStart DateEnd Date Rudy King MD [address] [place] [address] PCP - [facility]01/17/24 Team Status: Active Member Role/Relationship Status [...] tart: May 14, 2025 Elliott Nettles , OUTDOOR EMERGENCY CARE TECHNICIAN-CAttending ProviderActiveStart: May 14, 2025 Team Status: Inactive Member Role/Relationship Status Dates Rudy King MD Primary Care Provider Active S tart: May 16, 2025 End: May 16, 2025MarLyndsay Nazario ProviderActiveStart: May 16, 2025 End: May 16, 2025Team MemberRelationshipSpecialtyStart DateEnd Date Rudy King MD PCP - [facility] Medicine Rudy King MD PCP - [facility] Medicine01/17/24 Team Status: Inactive Member Role/Relationship Status [...] BE BASED ON THE PRIMARY CLINICAL RECORDS. [facility]. provides no warranty or guarantee of the accuracy or completeness of information in this document.
--- OUTSIDE RECORDS SUMMARY | 2025-06-06 12:45 | XMS_ITS | Clinical Summary ---
Author Organization [facility] Address [facility] [place] [address] Care Team Providers Care Staff Auditor Name Role Phone Arturo PIMENTEL MD, Dakota Franco Primary Care Provider [phone] Allergies No known active allergies Medications MedicationSigDispense QuantityRefillsLast FilledStart DateEnd DateStatus simvastatin 40 mg tablet Take 40 mg by mouth once daily.Active fluticasone 50 mcg/actuation nasal spray Use 1 Koppel in each nostril once daily.Active lisinopril-hydrochlorothiazide 20-12.5 [...] 1 Inhaler ctive Active Problems ProblemNoted DateDiagnosed HgmsUutgpn81/11/2013 Immunizations ImmunizationAdministration DatesNext Dueinfluenza vaccine, unspecified kagnbwdpkub16/11/2013 Family History Medical HistoryRelationCommentsCancerBrotherprostateNoneBrotherhas 6 brothers EmphysemaFatherCerebral EmbolismMotherDiabetesMotherHypertensionMotherNoneSister RelationStatusCommentsBrotherFatherMotherSister Social History Tobacco UseTypesPacks/DayYears UsedDateSmoking Tobacco: FormerCigarettes0.53 03/03/1974 - 03/03/1977Smokeless Tobacco: FormerAlcohol UseStandard Drinks/Week JqxqqemeJpd66 (1 standard drink = 0.6 oz pure alcohol)Sex and Gender Information ValueDate RecordedSex Assigned at BirthNot on fileLegal CasSnkz83/02/2012 10:16 AM ESTGender IdentityNot on fileSexual OrientationNot on file Last Filed Vital Signs Vital SignReadingTime TakenCommentsBlood Zjepqkpu360/85007/29/2012 8:56 AM EST Jbumj454907/29/2012 8:56 AM TFRJnliulxgrvr18.3 ??C (97.3 ??F)07/29/2012 8:56 AM ESTRespiratory Atpl975307/29/2012 8:56 AM ESTOxygen Uwihdgtosh92%07/29/2012 8:56 AM ESTInhaled Oxygen Concentration--Fklyub55.9 kg (200 lb 6.4 oz)04/19/2012 1:48 PM BBAMhcgjm166.3 cm (5' 6.65 )04/19/2012 1:48 PM EDTBody Mass Index31.71 04/19/2012 1:48 PM EDT Plan of Treatment Health MaintenanceDue DateLast DoneCommentsAbdominal Aortic Aneurysm Screening 6Anxiety Hbocqovft55/04/1974Depression Eirqkoxal24/04/1974Hepatitis C Eyownlalz99/04/1974DTaP,Tdap,Td Vaccine (1 - Tdap)09/19/1974Lipid Screening 09/19/1990CT Xiwleorxhkyf95/04/2001Cologuard (FIT-DNA)09/19/2000Colonoscopy 09/19/2000Colorectal Cancer Lbpamnnwc10/04/2001Fecal Occult Blood09/19/2000 Nednulzkmrwak94/04/2001Pneumococcal Vaccine: 50+ (1 of 1 - PCV)09/19/2005 Shingrix Vaccine (1 of 2)09/19/2005Diabetes Xinjqrkrz60/05/dvance Directive Kozvaqjxaz24/01/2025Covid-19 Vaccine (1 - 2024- season)2025 Influenza Vaccine (#1)5007/29/2012RSV Vaccine (1 - 1-dose 75+ series) 09/19/2030 Procedures Procedure NamePriorityDate/TimeAssociated DiagnosisCommentsBASIC METABOLIC PANEL STAT03/23/2012 9:22 AM EDT Pre-op testing from Last 3 Months or Most Recently Relevant to Health Maintenance Results * (ABNORMAL) BASIC METABOLIC PNL (03/23/2012 9:22 AM EDT)ComponentValueRef Range Test MethodAnalysis TimePerformed AtPathologist AdzlykmtgVebttrd748(H)65 - 100 mg/dLCLEVEL[facility] VZMRPDPSWSQBS4511 - 25 mg/dLCLEVELAND [facility] LABORATORYCreatinine1.010.70 - 1.40 mg/dLCLEVELAND [facility] LABORATORY Cfquqi523368 - 146 mmol/LCMERCY [facility] LABORATORYPotassium3.83.5 - 5.0 mmol/LCMERCY [facility]BUR[facility] CCIGOTLLOLOoqtckdq3106 - 110 mmol/LCMERCY [facility]BUR[facility] WONNDODJIWAI96708 - 32 mmol/LCMERCY [facility]YSBUR[facility] LABORATORYAnion Urf480 - 15 mmol/LCMERCY [facility] DEHGLGDTZNKkdburd22.18.5 - 10.5 mg/dL [facility] LABORATORYeGFR->60[facility] LABORATORYeGFR-All Other Races>60.[facility] LABORATORYComment: eGFR (Estimated GFR) Units of [...] StatusPeter Mariaelena KLEINLABORATORYFinal ResultPerforming OrganizationAddressCity/State/ZIP CodePhone Number [facility] [address] [place] [address] from Last 3 Months or Most Recently Relevant to Health Maintenance Insurance Care Teams Team MemberRelationshipSpecialtyStart DateEnd Date Dakota Morris II, MD PCP - GeneralInternal Medicine02/18/12
--- OUTSIDE RECORDS SUMMARY | 2025-06-06 12:45 | XMS_ITS | Encounter Summary ---
Author Organization [facility] Address [address] [place] [address] Care Team Providers Care Medical Radiation Tech Name Role Phone Rudy Guerra MD Primary Care Provider [phone] Encounter Details DateTypeDepartmentCare Team (Latest Contact Info)Zqlbloszrss17/12/2025Results Follow-Up [facility] Cardiology [address] [place] [address] Neelam Gutierrez CNP [address] [place] [address] Cardiac event monitor Social History Tobacco UseTypesPacks/DayYears UsedDateSmoking Tobacco: FormerCigarettes Smokeless Tobacco: NeverAlcohol UseStandard Drinks/WnacGcliyadqXkp66 (1 standard drink = 0.6 oz pure alcohol)occasionalAHC UtilitiesAnswerDate RecordedIn the past 12 months has the electric, gas, oil, or water [employer] threatened to shut off services in your [...] homeless or living in a fci (including now)?No04/19/2025Hunger Vital SignAnswerDate RecordedWithin the past 12 months, you worried that your food would run out before you got the money to buymore.Never true04/19/2025Ran Out of Food in the Last YearNot on file04/19/2025Sex and Gender InformationValueDate RecordedSex Assigned at DbjxpFwal46/06/2025 8:51 AM EDTLegal OlxQfcj8601/14/2022 10:53 PM EDT Gender MbthwswmXbxs63/06/2025 8:51 AM EDTSexual OrientationHeterosexual or Hwnbjcdz32/06/2025 8:51 AM EDTdocumented as of this encounter [...] Plan of Treatment DateTypeDepartmentCare Team (Latest Contact Info)Hlmqeowgiau55/02/2025 9:00 AM ESTOffice Visit [facility] [address] [place] [facility] [place] [address] Bobo Raymond MD [address] [place] [phone] 06/22/2025 10:00 AM ESTOffice Visit [facility] [address] [place] [facility] [place] [address] Hay William MD [address] [facility] [address] [place] [phone] NamePriorityAssociated DiagnosesDate/TimeCORONARY ANGIOGRAPHY Valvular endocarditis RIGHT HEART CATH Valvular endocarditis documented as of this encounter Visit Diagnoses Not on filedocumented in this encounter Care Teams Team MemberRelationshipSpecialtyStart DateEnd Date Rudy Guerra MD [address] [place] [address] PCP - Zgbwhmj12/16/22documented as of this encounter
--- OUTSIDE RECORDS SUMMARY | 2025-06-06 12:45 | XMS_ITS | Encounter Summary ---
Author Organization [facility] Address [address] [place] [address] Care Team Providers Care Timber Skidder Name Role Phone Rudy Guerra MD Primary Care Provider [phone] Encounter Details DateTypeDepartmentCare Team (Latest Contact Info)Aulqevxpijq30/13/2025Telephone [facility] [place] [address] [place] [address] Mercedes Prado MA Social History Tobacco UseTypesPacks/DayYears UsedDateSmoking Tobacco: FormerCigarettes Smokeless Tobacco: NeverAlcohol UseStandard Drinks/DrwnYdblwnirTfq02 (1 standard drink = 0.6 oz pure [...] or living in a group home (including now)?No04/19/2025Hunger Vital SignAnswerDate RecordedWithin the past 12 months, you worried that your food would run out before you got the money to buymore.Never true04/19/2025Ran Out of Food in the Last YearNot on file04/19/2025Sex and Gender InformationValueDate RecordedSex Assigned at AoksqCwzr66/06/2025 8:51 AM EDTLegal SuuCdhv2301/14/2022 10:53 PM EDT Gender JomsvltgFysq70/06/2025 8:51 AM EDTSexual OrientationHeterosexual or Vtvrlcbs74/06/2025 8:51 AM EDTdocumented as of this encounter Plan of Treatment DateTypeDepartmentCare Team (Latest Contact Info)Ypdcduwcbkv37/02/2025 9:00 AM ESTOffice Visit [address] [address] Bobo Raymond MD [address] [place] [address] 06/22/2025 10:00 AM ESTOffice Visit [facility] [address] [place] [address] Hay William MD [address] [facility] [address] [facility] [place] [address] NamePriorityAssociated DiagnosesDate/TimeCORONARY ANGIOGRAPHY Valvular endocarditis RIGHT HEART CATH Valvular endocarditis documented as of this encounter Visit Diagnoses Not on filedocumented in this encounter Care Teams Team MemberRelationshipSpecialtyStart DateEnd Date Rudy Guerra MD [address] [place] [address] PCP - Umjkkuo78/16/22documented as of this encounter
--- OUTSIDE RECORDS SUMMARY | 2025-06-06 12:45 | XMS_ITS ---
Author Organization [facility] Address [address] [place] [address] Care Team Providers Care Loading Manager Name Role Phone Rudy Guerra MD Primary Care Provider [phone] Active Problems ProblemNoted DateDiagnosed DateModerate protein-calorie whcthgvudnsk29/19/2025 Assessment & Plan (06/06/2025 12:27 PM EST): - Clinical dietitian consulted, recommendations as below Acute bacterial lauhrymkrvvq32/19/2025 Assessment & Plan (06/06/2025 12:27 PM EST): [...] they will discuss the case with the loan servicing officer. Sepsis due to Ehtwcxqjrhgwgr16/19/2025 Assessment & Plan (06/06/2025 12:27 PM EST): [...] they will discuss the case with the loan servicing officer. 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 Acute kidney tmfxfn6706/05/20254705Tfmvhf79/18/2025hronic kidney disease, stage 3a 06/05/2025Gout06/05/2025oronary artery disease involving [place] coronary artery of [place] heart without angina lvzykjwy05/18/2025HFrEF (heart failure with reduced ejection fraction)3064Tjywbiuqmi98/18/2025 Assessment & Plan (06/06/2025 12:27 PM EST): [...] they will discuss the case with the loan servicing officer. Assessment & Plan (06/05/2025 4:17 AM EST): Blood cultures were growing Staphylococcus lugdunensis Continue Ancef ID and Cardiology consult Elevated LFTs06/05/2025 Assessment & Plan (06/06/2025 12:27 PM EST): LFTs were elevated above the hospital Statin was held Assessment & Plan (06/05/2025 4:17 AM EST): LFTs were elevated above the hospital Statin was held Chronic gjizbg8406/05/2025 Assessment & Plan (06/06/2025 12:27 PM EST): Monitor hemoglobin Assessment & Plan (06/05/2025 4:17 AM EST): Monitor hemoglobin Valvular eukztefwcqth16/17/2025ardiogenic shock05/03/2025 Assessment & Plan (05/03/2025 12:13 PM EDT): - Required [place] Stacy and dobutamine in ICU. - Improving. [...] US neck. - Start doxy empirically. Sinus tbownmexkqu63/06/2025 Assessment & Plan (05/03/2025 12:13 PM EDT): - Continue Toprol, Farxiga and spironolactone. - Hold Entresto due to LINDA. Assessment & Plan (04/24/2025 4:13 PM EDT): - Continue Toprol. - Hold Entresto and spironolactone due to hypotension. Assessment & Plan (04/23/2025 3:28 PM EDT): - Continue Toprol. - Hold Entresto and spironolactone due to hypotension. Right ventricular szkzhuazdkv16/06/2025 Assessment & Plan (05/03/2025 12:13 PM EDT): - Required [place] Stacy and dobutamine in ICU. - Improving. Assessment & Plan (04/24/2025 4:13 PM EDT): - CTA chest showed no PE. - Right cath today. Assessment & Plan (04/23/2025 3:28 PM EDT): - We will order CTA chest due to tachycardia. - Left and right cath tomorrow. Hypotension due to gcaneyubuug78/03/2025 Assessment & Plan (05/03/2025 12:13 PM EDT): [...] showed early tamponade. Patient was taken to manager labor relations for Pericardiocentesis. Right heart cath was not suggestive for tamponade. 300 ml serosanguinous fluid. - Repeated echo showed mild effusion. Assessment & Plan (04/24/2025 4:13 PM EDT): - Echo showed early tamponade. Patient was taken to manager labor relations for Pericardiocentesis. Right heart cath was not suggestive for tamponade. 300 ml serosanguinous fluid. - Monitor BP. - Continue colchicine per Cardiology. - Repeated echo showed mild effusion. Assessment & Plan (04/23/2025 3:28 PM EDT): - Echo showed early tamponade. Patient was taken to manager labor relations for Pericardiocentesis. Right heart cath was not suggestive for tamponade. 300 ml serosanguinous fluid. - Monitor BP. - Continue colchicine per Cardiology. - Repeated echo showed mild effusion. Assessment & Plan (04/22/2025 8:13 PM EDT): - Echo showed early tamponade. Patient was taken to manager labor relations for Pericardiocentesis. Right heart cath was not suggestive for tamponade. 300 ml serosanguinous fluid and pigtail was placed. - Monitor BP. - Continue colchicine per Cardiology. - Repeat echo on Monday 04/23. Assessment & Plan (04/21/2025 4:54 PM EDT): - Echo showed early tamponade. Patient was taken to manager labor relations for Pericardiocentesis. Right heart cath was not suggestive for tamponade. 300 ml serosanguinous fluid and pigtail was placed. - Monitor BP. - Continue colchicine per Cardiology. - Follow up blood and fluid cx. - Repeat echo on Monday 04/23. Assessment & Plan (04/20/2025 12:20 PM EDT): - Echo showed early tamponade. Patient was taken to manager labor relations for Pericardiocentesis. Right heart cath was not [...] small pericardial effusion. Workup was negative for [place] Daily Update: patient arrived from [place]. Pain has improved to 2/10 Today's Plan: will continue to control pain as necessary. Cardiology consulted for investigation ofwatchman and other etiologies. Will continue to monitor. NPO for now. Echo showed signs of cardiac tamponade. Patient taken to heart cath with plan for possible pericardiocentesis. Heart failure with reduced ejection vlfqlezg30/02/2025 Assessment & Plan (06/06/2025 12:27 PM EST): Most recent echo showed EF of 20% Patient's Entresto, spironolactone, and Farxiga were held at [facility] due to hypotension and LINDA Metoprolol was being given Presently, patient appears euvolemic Assessment & Plan (06/05/2025 4:17 AM EST): Most recent echo showed EF of 20% Patient's Entresto, spironolactone, and Farxiga were held at [facility] due to hypotension and LINDA Metoprolol was [...] as well as daily weight checks. Pericardial /02/2025 Assessment & Plan (06/06/2025 12:27 PM EST): [...] showed early tamponade. Patient was taken to manager labor relations for Pericardiocentesis. Right heart cath was not suggestive for tamponade. 300 ml serosanguinous fluid. - Repeated echo showed mild effusion. Assessment & Plan (04/24/2025 4:13 PM EDT): - Echo showed early tamponade. Patient was taken to manager labor relations for Pericardiocentesis. Right heart cath was not suggestive for tamponade. 300 ml serosanguinous fluid. - Monitor BP. - Continue colchicine per Cardiology. - Repeated echo showed mild effusion. Assessment & Plan (04/23/2025 3:28 PM EDT): - Echo showed early tamponade. Patient was taken to manager labor relations for Pericardiocentesis. Right heart cath was not suggestive for tamponade. 300 ml serosanguinous fluid. - Monitor BP. - Continue colchicine per Cardiology. - Repeated echo showed mild effusion. Assessment & Plan (04/22/2025 8:13 PM EDT): - Echo showed early tamponade. Patient was taken to manager labor relations for Pericardiocentesis. Right heart cath was not suggestive for tamponade. 300 ml serosanguinous fluid and pigtail was placed. - Monitor BP. - Continue colchicine per Cardiology. - Repeat echo on Monday 04/23. Assessment & Plan (04/21/2025 4:54 PM EDT): - Echo showed early tamponade. Patient was taken to manager labor relations for Pericardiocentesis. Right heart cath was not suggestive for tamponade. 300 ml serosanguinous fluid and pigtail was placed. - Monitor BP. - Continue colchicine per Cardiology. - Follow up blood and fluid cx. - Repeat echo on Monday 04/23. Assessment & Plan (04/20/2025 12:20 PM EDT): - Echo showed early tamponade. Patient was taken to manager labor relations for Pericardiocentesis. Right heart cath was not [...] small pericardial effusion. Workup was negative for [place] Daily Update: patient arrived from [place]. Pain has improved to 2/10 Today's Plan: will continue to control pain as necessary. Cardiology consulted for investigation ofwatchman and other etiologies. Will continue to monitor. NPO for now. Echo showed signs of cardiac tamponade. Patient taken to heart cath with plan for possible pericardiocentesis. Odrbtkzsdnpy16/02/2025 Assessment & Plan (06/06/2025 12:27 PM EST): monitor sodium level Fluid restrict Assessment & Plan (06/05/2025 4:17 AM EST): monitor sodium level Fluid restrict Assessment & Plan (04/20/2025 12:20 PM EDT): - Follow up urine Na and osmol. - Improving. Assessment & Plan (04/19/2025 1:19 PM EDT): Sodium 126 Will continue to monitor Urine sodium and serum osmolality ordered Nakxsrbzdylc57/02/2025trial onhbwskdjsle35/09/2025 Assessment & Plan (05/03/2025 12:13 PM EDT): [...] PM EDT): atrial fibrillation status post Watchman Will continue aspirin and plavix Will continue to monitor Paroxysmal atrial frqghhykjryo74/04/2024 Overview (01/06/2024): Last Assessment & Plan: In NSR and continue medication. Follow up with cardiology. Assessment & Plan (06/06/2025 12:27 PM EST): status post Watchman continue Toprol Assessment & Plan (06/05/2025 4:17 AM EST): status post Watchman continue Toprol PAF (paroxysmal atrial fibrillation)07/22/2023 Overview (06/05/2025): Documented on 08/24/2023 by AMINATA ALEXANDER Chronic asxidrydpkij92/15/202310/Nasal polypllergic rhinitis due to drirpg9803/02/2023ICD (implantable cardioverter-defibrillator) in place09/15/2022 Assessment & Plan (06/06/2025 12:27 PM EST): Most recent echo showed EF of 20% Patient's Entresto, spironolactone, and Farxiga were held at [facility] due to hypotension and LINDA Metoprolol was being given Presently, patient appears euvolemic Assessment & Plan (06/05/2025 4:17 AM EST): Most recent echo showed EF of 20% Patient's Entresto, spironolactone, and Farxiga were held at [facility] due to hypotension and LINDA Metoprolol was [...] is due for interrogation this coming march Nxuoepruuotgse22/14/2023 Overview (09/01/2022): Added automatically from request for surgery [id number] Assessment & Plan (06/06/2025 12:27 PM EST): Most recent echo showed EF of 20% Patient's Entresto, spironolactone, and Farxiga were held at [facility] due to hypotension and LINDA Metoprolol was being given Presently, patient appears euvolemic Assessment & Plan (06/05/2025 4:17 AM EST): Most recent echo showed EF of 20% Patient's Entresto, spironolactone, and Farxiga were held at [facility] due to hypotension and LINDA Metoprolol was [...] (02/19/2023 1:06 PM EDT): As above Nonischemic aoltmzciwlxeio84/14/2023 Overview (06/05/2025): Added automatically from request for surgery [id number] Last Assessment & Plan: As above Depressive gywvymua60/13/3035Jlbhnmfdyots99/13/2023 Assessment & Plan (02/19/2023 1:06 PM EDT): Continue statin Lxzntffzfwe45/13/2023Seasonal allergic xasmzepr11/13/2023Steatosis of liver 08/31/2022Vitamin D ltaruladbv51/13/2023oronary artery disease involving [place] coronary artery of [place] heart with angina ertdnvrm87/19/2022 Assessment & Plan (06/06/2025 12:27 PM EST): [...] statin therapy lipitor 40mg Chronic systolic heart slnrjbm9007/06/2022 Assessment & Plan (01/06/2024 12:03 PM EDT): [facility] II- currently EF improved from 25-30% to 40% Remains euvolemic and stable Continue GDMT- lipitor, farxiga, toprol, entresto and aldactone Diuretic therapy- continue farxiga Monitor daily weights, I&O, fluid restriction 1.5-2L/day, renal function and electrolytes- Currently stable - improved EF- continue all medications Assessment & Plan (02/19/2023 1:05 PM EDT): [facility] II- currently euvolemic without exacerbation Continue [...] fraction)07/06/2022 Overview (06/05/2025): Last Assessment & Plan: [facility] II- currently euvolemic without exacerbation Continue GDMT- ASA, lipitor, toprol, farxiga, aldactone andwill increase entresto to 49-51 mg bid Repeat BMP in 1 week to assess renal function and electrolyes Diuretic therapy- farxiga- pt is euvolemic currently Monitor daily weights, I&O, fluid restriction 1.5-2L/day, renal function and electrolytes- History of malignant neoplasm of lvhgfuni38/16/7268Jqhyhjhgixgvfq58/16/2022 Assessment & Plan (06/06/2025 12:27 PM EST): replete magnesium Assessment & Plan (06/05/2025 4:17 AM EST): replete magnesium Primary wbafhitzwnmo85/16/2022 Assessment & Plan (05/03/2025 12:13 PM EDT): [...] Continue medications New onset of congestive heart nvavxlb9307/02/2022 Assessment & Plan (07/06/2022 10:32 PM EST): [...] complexes he may no BiV ICD -continue stvjaxXC13wv, entresto 24-26, will add medications pending echo Syncope and ofusjewq49/15/2022 Overview (07/03/2022): Added automatically from request for surgery [id number] Uncomplicated gbfxno4507/29/2012 Assessment & Plan (05/03/2025 12:13 PM EDT): [...] to our equivalent Mild persistent asthma without xkzcddynpjje35/11/2013 Overview (01/06/2024): Last Assessment & Plan: No SOB and continue advair. Use albuterol PRN. Benign essential tohgzvroxkeo93 Assessment & Plan (06/06/2025 12:27 PM EST): -Continue with metoprolol. Holding Entresto/spironolactone/Farxiga due to borderline hypotension. Assessment & Plan (06/05/2025 4:17 AM EST): monitor blood pressure closely, currently on Toprol Znnisbycljzohw92 Assessment & Plan (01/06/2024 11:59 AM EDT): Script for liver function and lipid levels given to pt Continue statin Malignant tumor of waogetlb45 Current Treatment and Therapy Plans No current plan information found. Past Treatment and Therapy Plans No past plan information found. Lifetime Dose Tracking * ChemicalLifetime DoseAutomatic EntryManual EntryFluoro Time25.56 minutes0 qwujlfl46.56 minutesAir Kerma2,028.5 mGy0 mGy2,028.5 mGyDose Area Product 242,509 mGy-cm20 mGy-tl8568,509 mGy-cm2 Resolved Problems ProblemNoted DateDiagnosed DateResolved DateHx of benign neoplasm of prostate
--- OUTSIDE RECORDS SUMMARY | 2025-07-06 19:00 | XMS_ITS | Clinical Summary ---
Author Organization Unknown Care Team Providers Care Salesperson [employer] Name Role Phone FERNANDO KLEIN, BRIANNA Unavailable Unavailable ROB MANAGER OF ORGANIZATIONAL DEVELOPMENT, ASHLEY Unavailable Unavailable GOSCHE OT, MARIAM Unavailable Unavailable BRADY PT, SANDHYA Unavailable Unavailable KOHGEOFFREY MANAGER OF ORGANIZATIONAL DEVELOPMENT, VIKTORIYA Unavailable Unavailbar MARROQUIN PT, SAMMY Unavailable Unavailable KENIA BRITT, ЕКАТЕРИНА Unavailable Unavailbar MONTEMAYOR RN, ROGELIO Unavailable Unavailbar LINCOLN RN, CONSTANCE Unavailable Unavailable IVON HUANG, STEPHANIE Unavailable Unavailable Payers Payer Name Policy Type Policy Number Effective Date Expira tion Date [facility] (FFS) [id number] Problems Condition Name Condition Details Condition Category Status Onset Date Resolution Date Last Treatment Date Treating Clinician Comments HYP HRT AND CHR KDNY DIS W HRT FAIL AND STG 1-4/UNSP CHR KDNY Jsukzw4149-72-40 00:00:00CHRONIC SYSTOLIC (CONGESTIVE) HEART FAILUREActive 2025-05-09 00:00:00CHRONIC KIDNEY DISEASE, IWAROSYMSSKCktbgb0881-21-28 00:00:00 PAROXYSMAL ATRIAL HHHCIMIXWEMKRusfgv8455-43-19 00:00: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 IXRITOmcnel6896-81-27 00:00:00CARDIOMYOPATHY, AWUKFDMETKXHexqtm5844-98-53 00:00:00HYPERLIPIDEMIA, BZWFIQMOBLOZzxilp0559-41-64 00:00:00UNSPECIFIED ASTHMA, BJSTKEOMUZYKRRdblnk4088-77-02 00:00:00ACUTE PERICARDITIS, FPACEUSJWRCZhkebm1176-02-09 00:00:00LONG TERM (CURRENT) USE OF HPNOONBQcqgxz1963-35-61 00:00:00LONG TERM (CURRENT) USE OF INHALED STEROIDS Tkisan9558-25-63 00:00:00LONG TERM (CURRENT) USE OF ANTITHROMBOTICS/ZMNQZKECSGKZSRgocxp3968-38-65 00:00:00LONG TERM (CURRENT) USE OF ORAL HYPOGLYCEMIC GBVOBMahjzh4175-13-55 00:00:00PERSONAL HISTORY OF NICOTINE DYAHMULIDWOpcwbf5274-35-69 00:00: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 Ordering Clinician Indication Dosage Frequency Signature (SIG) Comments Components albuterol sulfate HFA 90 mcg/actuation a erosol inhaler 2025-05-09 00:00:[id number] OF BREATH1 puff2 TIMES DAILY1 puff 2 TIMES DAILY (route: inhalation)Med Classification: Respiratory Therapy Agents Allergy Relief (fluticasone) 50 mcg/actuation nasal spray,lmwhjhqrjq7302-11-78 00:00:[id number] spray2 TIMES DAILY1 spray 2 TIMES DAILY (route: nasal)Med Classification: Respiratory Therapy Agentsallopurinol 300 mg tablet 2025-05-09 00:00:[id number] tabletDAILY1 tablet DAILY (route: oral)Med Classification: Gout and Hyperuricemia Therapyaspirin 81 mg tablet,delayed onjjlyb4573-39-51 00:00:[id number] tabletDAILY1 tablet DAILY (route: oral)Med Classification: Hematological Agentsatorvastatin 40 mg tablet 2025-05-09 00:00:[id number] tabletDAILY1 tablet DAILY (route: oral)Med Classification: Cardiovascular Therapy Agentsclopidogrel 75 mg tablet 2025-05-09 00:00:[id number] tabletDAILY1 tablet DAILY (route: oral)Med Classification: Hematological Agentscolchicine 0.6 mg jltmln7286-72-02 00:00:[id number] tabletDAILY1 tablet DAILY (route: oral)Med Classification: Gout and Hyperuricemia Therapydoxycycline hyclate 100 mg capsule 2025-05-09 00:00:374388-04-20 23:59:[id number] capsule2 TIMES DAILY1 capsule 2 TIMES DAILY (route: oral)Med Classification: Anti-Infective AgentsDupixent 300 mg/2 mL subcutaneous dfkqjnz3146-20-95 00:00:[id number] PRMXWU716 mLEVERY OTHER MPEK241 mL EVERY OTHER WEEK (route: subcutaneous)Med Classification: DermatologicalFarxiga 10 mg hhinof0878-85-13 00:00:00Yes [id number] FAILURE1 tabletDAILY1 tablet DAILY (route: oral)Med Classification: Endocrinefluticasone 500 mcg-salmeterol 50 mcg/dose blistr powdr for qhwynfsytt1373-35-38 00:00:[id number] inhalation2 TIMES DAILY1 inhalation 2 TIMES DAILY (route: inhalation)Med Classification: Respiratory Therapy Agentsfurosemide 20 mg tbzrpa8886-67-36 00:00:[id number] tabletDAILY2 tablet DAILY (route: oral)Med Classification: Cardiovascular Therapy Agentsmetoprolol succinate ER 25 mg tablet,extended release 24 hr 2025-05-09 00:00:[id number] PRESSURE0.5 tabletDAILY0.5 tablet DAILY (route: oral)Med Classification: Cardiovascular Therapy Agentsspironolactone 25 mg csyxyn5356-59-25 00:00:[id number] FAILURE1 tabletDAILY1 tablet DAILY (route: oral)Med Classification: Cardiovascular Therapy AgentsTylenol Extra Strength 500 mg bazslw6208-57-14 00:00:[id number] tabletEVERY 8 HOURS2 tablet EVERY 8 HOURS (route: oral)Med Classification: Analgesic, Anti- inflammatory or Antipyretic Vital Signs Vital Name Observation Time Observation Value Commen ts Temperature 2025-05-29 11:35:00.000 98.2 [degF] Nyqcbgeszqi2795-68-88 11:55:00.48474.8 [degF]Ezpebpjhfwv0850-25-93 10:06:00.000 98.5 [degF]Olqudmrrwql2126-22-98 13:30:00.12819.5 [degF]Yycqemvxdcg5918-90-34 11:59:00.59320.1 [degF]Mbgcdunaxge1971-95-17 14:33:00.07355.2 [degF]Temperature 2025-05-16 11:28:00.04697.2 [degF]Nbobijuuovr0175-75-93 14:56:00.04383.6 [degF] Gjjiidowxrd2050-82-13 11:17:00.40854.4 [degF]Ewkwygujujd6849-18-60 09:26:00.000 98.1 [degF]Lonpnlewtbb1944-40-08 15:11:00.41175.5 [degF]BMI (%)2025-05-09 15:11:00.94947 kg/n5Ivarst6805-77-03 15:11:00.54277 [in_us]Mvrgq5704-12-89 11:35:00.88623 /hhmXmqlc6251-95-43 11:55:00.81992 /ocfPgvnq4749-90-91 09:36:00.86582 /aecLiooc6978-69-61 13:30:00.82818 /vscErjsj6519-30-27 11:59:00.74990 /pxeXievv3540-30-36 14:33:00.13580 /jbvKfuwm9319-80-20 11:28:00.85598 /tbwFkaxx6545-50-69 14:56:00.78470 /oypDoekl5408-56-28 11:17:00.41444 /lonZpncd2868-93-03 09:26:00.27689 /lqfDclfn0944-52-42 15:11:00.73264 /minO2 Saturation (%)2025-05-29 11:35:00.91940 %O2 Saturation (%) 2025-05-24 11:55:00.64330 %O2 Saturation (%)2025-05-23 09:36:00.64827 %O2 Saturation (%)2025-05-22 13:30:00.45584 %O2 Saturation (%)2025-05-22 11:59:00.10681 %O2 Saturation (%)2025-05-18 14:33:00.28784 %O2 Saturation (%) 2025-05-16 11:28:00.44560 %O2 Saturation (%)2025-05-15 14:56:00.54713 %O2 Saturation (%)2025-05-10 11:17:00.03128 %O2 Saturation (%)2025-05-10 09:26:00.81082 %O2 Saturation (%)2025-05-09 15:11:00.15809 %Respirations 2025-05-29 11:35:00.34254 /dclSocstmomfgbn6123-78-98 11:55:00.41410 /min Zkbydgevhcwq3778-48-86 09:36:00.71488 /btiAawzjwjkgkft2388-55-72 13:30:00.40753 /axjBclofcpsviwa4966-00-47 11:59:00.29016 /fwlNioflewsausb9896-90-86 14:33:00.57674 /mwkMjlbeqrxdesq3453-26-69 11:28:00.30771 /minRespirations 2025-05-15 14:56:00.81424 /uvyRofenwrrhnkq5558-34-07 11:17:00.13626 /min Qguiwzzxxmnp2624-69-68 09:26:00.88741 /wsvQrynufymxytk5839-74-49 15:11:00.22012 /minWeight (lbs)2025-05-23 09:41:00.407242 [lb_av]Weight (lbs)2025-05-16 11:28:00.869991 [lb_av]Weight (lbs)2025-05-09 15:11:00.944884 [lb_av]Systolic Blood Rfowukec0223-54-52 11:35:00.779154 mm[Hg]Systolic Blood Zigzfpyv2269-55-10 11:55:00.457541 mm[Hg]Systolic Blood Syjdzlxg3851-17-86 09:36:00.837075 mm[Hg] Systolic Blood Nhueurrl7826-51-14 13:30:00.93576 mm[Hg]Systolic Blood Pressure 2025-05-22 11:59:00.55524 mm[Hg]Systolic Blood Ftpjbmxh2919-23-34 14:33:00.000 124 mm[Hg]Systolic Blood Csgpvkgj1164-11-01 11:28:00.375992 mm[Hg]Systolic Blood Dzvhrxnp0341-55-83 14:56:00.356556 mm[Hg]Systolic Blood Qcmnhlhu8722-32-21 11:17:00.555208 mm[Hg]Systolic Blood Hmzzxvhe7254-46-11 09:26:00.228274 mm[Hg] Systolic Blood Bowowzez6724-50-53 15:11:00.205131 mm[Hg]Diastolic Blood Pressure 2025-05-29 11:35:00.35079 mm[Hg]Diastolic Blood Vshbnzmv4872-79-18 11:55:00.000 76 mm[Hg]Diastolic Blood Gxhzidtm8339-27-84 09:36:00.48061 mm[Hg]Diastolic Blood Dmxrvsgq2276-73-87 13:30:00.12325 mm[Hg]Diastolic Blood Nqekjdbk8968-40-03 11:59:00.46337 mm[Hg]Diastolic Blood Ououplhe9538-88-92 14:33:00.15421 mm[Hg] Diastolic Blood Ndwdhdct6637-71-46 11:28:00.44393 mm[Hg]Diastolic Blood Pressure 2025-05-15 14:56:00.18963 mm[Hg]Diastolic Blood Xcwaxfgx7346-52-11 11:17:00.000 75 mm[Hg]Diastolic Blood Xeckomtg4254-83-97 09:26:00.67283 mm[Hg]Diastolic Blood Jtnpdfsj3204-88-55 15:11:00.97652 mm[Hg] Plan of Treatment Planned Activity Planned Date Details Comments Future Scheduled Test ALL CONSULTING/COVERING PHYSICIANS MAY SIGN/ISSUE ORDERS. [code = ALL CONSULTING/COVERING PHYSICIANS MAY SIGN/ISSUE ORDERS.]Future Scheduled Test SKILLED NURSE TO REVIEW MEDICATION PROFILE AND RECONCILE MEDICATIONS NEEDED. SKILLED NURSE MAY INSTRUCT AND REINFORCE MEDICATION TEACHING RELATED TO USE OF MEDICATIONS TO TREAT DISEASE PROCESSES. [code = SKILLED NURSE TO REVIEW MEDICATION PROFILE AND RECONCILE MEDICATIONS NEEDED. SKILLED NURSE MAY INSTRUCT AND REINFORCE MEDICATION TEACHING RELATED TO USE OF MEDICATIONS TO TREAT DISEASE PROCESSES.]Future Scheduled TestPHYSICAL THERAPIST TO EVALUATE/ASSESS AND DEVELOP PHYSICAL THERAPY PLAN OF CARE TO BE SIGNED BY THE PHYSICIAN. [code = PHYSICAL THERAPIST TO EVALUATE/ASSESS AND DEVELOP PHYSICAL THERAPY PLAN OF CARE TO BE SIGNED BY THE PHYSICIAN.]Future Scheduled Test OCCUPATIONAL THERAPIST TO EVALUATE/ASSESS AND DEVELOP OCCUPATIONAL THERAPY PLAN OF CARE TO BE SIGNED BY THE PHYSICIAN. [code = OCCUPATIONAL THERAPIST TO EVALUATE/ASSESS AND DEVELOP OCCUPATIONAL THERAPY PLAN OF CARE TO BE SIGNED BY THE PHYSICIAN.]Future Scheduled TestSKILLED NURSE TO EVALUATE AND DEVELOP PLAN OF CARE TO BE COUNTERSIGNED BY PHYSICIAN. SKILLED NURSE TO ASSESS/EVALUATE HEART FAILURE AND CO-MORBID CONDITIONS INCLUDING HYPERTENSION AND OTHER CONDITIONS THAT PRESENT THEMSELVES DURING THE COURSE OF THIS EPISODE TO IDENTIFY CHANGES AND INTERVENE TO MINIMIZE COMPLICATIONS. [code = SKILLED NURSE TO EVALUATE AND DEVELOP PLAN OF CARE TO BE COUNTERSIGNED BY PHYSICIAN. SKILLED NURSE TO ASSESS/EVALUATE HEART FAILURE AND CO-MORBID CONDITIONS INCLUDING HYPERTENSION AND OTHER CONDITIONS THAT PRESENT THEMSELVES DURING THE COURSE OF THIS EPISODE TO IDENTIFY CHANGES AND INTERVENE TO MINIMIZE COMPLICATIONS.]Future Scheduled TestSKILLED NURSE TO PROVIDE INSTRUCTIONS RELATED TO MANAGEMENT OF CONGESTIVE HEART FAILURE INCLUDING, BUT NOT LIMITED TO, DEFINITION, RISKS FACTORS, MEASURES TO PREVENT EXACERBATION, SIGNS/SYMPTOMS, ANDPOTENTIAL COMPLICATIONS. SKILLED NURSE TO NOTIFY PHYSICIAN IF PATIENT GAINS MORE THAN 2 LBS/24 HOURS OR 5 LBS/WEEK. [code = SKILLED NURSE TO PROVIDE INSTRUCTIONS RELATED TO MANAGEMENT OF CONGESTIVE HEART FAILURE INCLUDING, BUT NOT LIMITED TO, DEFINITION, RISKS FACTORS, MEASURES TO PREVENT EXACERBATION, SIGNS/SYMPTOMS, AND POTENTIAL COMPLICATIONS. SKILLED NURSE TO NOTIFY PHYSICIAN IF PATIENT GAINSMORE THAN 2 LBS/24 HOURS OR 5 LBS/WEEK.]Future Scheduled TestSKILLED NURSE TO PROVIDE AND INSTRUCT REGARDING FALL PREVENTION INTERVENTIONS. [code = SKILLED NURSE TO PROVIDE AND INSTRUCT REGARDING FALL PREVENTION INTERVENTIONS.]Future Scheduled TestSKILLED NURSE TO PROVIDE/INSTRUCT REGARDING INTERVENTION(S) TO MONITOR AND MITIGATE PAIN. [code = SKILLED NURSE TO PROVIDE/INSTRUCT REGARDING INTERVENTION(S) TO MONITOR AND MITIGATE PAIN.]Future Scheduled TestDISCHARGE HOME HEALTH SERVICES WHEN GOALS ARE MET OR SKILLED CARE NO LONGER REQUIRED. [code = DISCHARGE HOME HEALTH SERVICES WHEN GOALS ARE MET OR SKILLED CARE NO LONGER REQUIRED.]Future Scheduled TestPATIENT IS AT RISK FOR HOSPITALIZATION OR EMERGENCY DEPARTMENT USE DUE TO FLUID RETENTION. TEACH PATIENT/CAREGIVER TO ?CALL US FIRST? . INFORM ON WHO AND WHEN TO CALL FOR SYMPTOMS BASED ON ZONE TOOLS. INSTRUCT ON MITIGATION OF IDENTIFIED HOSPITAL OR EMERGENCY DEPARTMENT RISK FACTORS. [code= PATIENT IS AT RISK FOR HOSPITALIZATION OR EMERGENCY DEPARTMENT USE DUE TO FLUID RETENTION. TEACH PATIENT/CAREGIVER TO ?CALL US FIRST? . INFORM ON WHO AND WHEN TO CALL FOR SYMPTOMS BASED ON ZONE TOOLS. INSTRUCT ON MITIGATION OF IDENTIFIED HOSPITAL OR EMERGENCY DEPARTMENT RISK FACTORS.]Future Scheduled TestSKILLED NURSE MAY PERFORM 2 PRN VISITS FOR INCREASED SHORTNESS OF BREATH [code = SKILLED NURSE MAY PERFORM 2 PRN VISITS FOR INCREASED SHORTNESS OF BREATH]Future Scheduled TestSKILLED NURSE FOR OASIS DATA COLLECTION/COMPREHENSIVE ASSESSMENT TO DETERMINE SKILLED NEED. THIS MAY INCLUDE RESUMPTION OF CARE ASSESSMENT (LEVY) TO DETERMINE SKILLED NEED FOLLOWING INPATIENT DISCHARGE SHOULD PATIENT TRANSFER AND ADMIT TO AN INPATIENT FACILITY DURING CURRENT 60-DAY CERTIFICATION PERIOD. ADDITIONAL VISITS MAY BE REQUIRED FOR RECERT, FOLLOW UP, SIGNIFICANT CHANGE IN CONDITION (SCIC)AND DISCHARGE. HOME HEALTH KNITTING SUPERVISOR MAY PROVIDE CARE RECOMMENDATIONS NEEDED ON NEW,EXISTING OR CHANGED WOUND OR INTEGUMENTARY CONDITIONS. [code = SKILLED NURSE FOR OASIS DATA COLLECTION/COMPREHENSIVE ASSESSMENT TO DETERMINE SKILLED NEED. THIS MAY INCLUDE RESUMPTION OF CARE ASSESSMENT (LEVY) TO DETERMINE SKILLED NEED FOLLOWING INPATIENT DISCHARGE SHOULD PATIENT TRANSFER AND ADMIT TO AN INPATIENT FACILITY DURING CURRENT 60-DAY CERTIFICATION PERIOD. ADDITIONAL VISITS MAY BE REQUIRED FOR RECERT, FOLLOW UP, SIGNIFICANT CHANGE IN CONDITION (SCIC) AND DISCHARGE. HOME HEALTH KNITTING SUPERVISOR MAY PROVIDE CARE RECOMMENDATIONS NEEDED ON NEW, EXISTING OR CHANGED WOUND OR INTEGUMENTARY CONDITIONS.]Future Scheduled TestPT TO OBSERVE AND ASSESS CARDIOVASCULAR SYSTEM TO IDENTFY CHANGES AND INTERVENE TO MINIMIZE COMPLICATIONS. PT TO PROVIDE TEACHING RELATED TO ALTERED CARDIOVASCULAR STATUS INCLUDING PATHOPHYSIOLOGY AND PERMITTED ACTIVITIES RELATED TO CAD. MAY PERFORM O2 SATURATION LEVELS PRN FOR SIGNS AND/OR SYMPTOMS OF POSSIBLE RESPIRATORY COMPLICATIONS. PHYSICAL THERAPIST TO PROVIDE SKILLED TEACHING/REINFORCEMENT OF MANAGEMENT OF HYPERTENSION. PHYSICAL THERAPIST TO PROVIDE INSTRUCTIONS RELATED TO MANAGEMENT OFCONGESTIVE HEART FAILURE INCLUDING BUT NOT LIMITED TO, DEFINITION, RISK FACTORS, AND MEASURES TO PREVENT EXACERBATION, SIGNS AND SYMPTOMS. PHYSICAL THERAPIST TO NOTIFY PHYSICIAN IF PATIENT GAINS [place] 2-3 LBS/24 HOURS 5 LBS/WEEK. PHYSICAL THERAPIST TO EVALUATE/ASSESS AND DEVELOP PHYSICAL THERAPY PLAN OF CARE TO BE SIGNED BY THE PHYSICIAN. PHYSICAL THERAPY TO ESTABLISH/UPGRADE HOME EXERCISE PRO GRAM AND PROVIDE THERAPEUTIC EXERCISES AND SOFT TISSUE DESIGNED TO RESTORE FUNCTIONAL STRENGTH AND ROM. PHYSICAL THERAPY TO PROVIDE TECHNIQUES DESIGNED TO IMPROVE BED MOBILITY. PHYSICAL THERAPY TO INSTRUCT IN SAFE TRANSFERS WITH APPROPRIATE BODY MECHANICS AND EQUIPMENT. PHYSICAL THERAPY TO EVALUATEGAIT AND PROVIDE GAIT TRAINING USING APPROPRIATE ASSISTIVE DEVICE TO ENSURE PATIENT SAFETY. PHYSICAL THERAPIST TO PROVIDE EDUCATION TO PATIENT/CAREGIVER RELATED TO SAFETY IN THE HOME ENVIRONMENT. PHYSICAL THERAPIST TO PROVIDE AND INSTRUCT REGARDING FALL PREVENTION INTERVENTIONS. PHYSICAL THERAPIST TO PROVIDE/INSTRUCT REGARDING INTERVENTION(S) TO MONITOR AND MITIGATE PAIN. DISCHARGE HOME HEALTH SERVICES WHEN GOALS ARE MET OR SKILLED CARE NO LONGER REQUIRED. PATIENT IS AT RISK FOR HOSPITALIZATIONOR EMERGENCY DEPARTMENT USE DUE TO CAD AND CHF. TEACH PATIENT/CAREGIVER TO ?CALL US FIRST? . INFORM ON WHO AND WHEN TO CALL FOR SYMPTOMS BASED ON ZONE TOOLS. INSTRUCT ON MITIGATION OF IDENTIFIED HOSPITAL OR EMERGENCY DEPARTMENT RISK FACTORS. PHYSICAL THERAPIST TO REVIEW MEDICATION PROFILE AND RECONCILE MEDICATIONS NEEDED. PHYSICAL THERAPIST MAY INSTRUCT AND REINFORCE MEDICATION TEACHING RELATED TO USE OF MEDICATIONS TO TREAT DISEASE PROCESSES. ALL CONSULTING/COVERING PHYSICIANS MAY SIGN AND ISSUE ORDERS. PHYSICAL THERAPIST TO MONITOR PLAN FOR CURRENT TREATMENT OF DEPRESSION SUCH EFFECTS OF MEDICATION AND/OR NEED FOR REFERRAL FOR OTHER TREATMENT. [code = PT TO OBSERVE AND ASSESS CARDIOVASCULAR SYSTEM TO IDENTFY CHANGES AND INTERVENE TO MINIMIZE COMPLICATIONS. PT TO PROVIDE TEACHING RELATED TO ALTERED CARDIOVASCULAR STATUS INCLUDING PATHOPHYSIOLOGY AND PERMITTED ACTIVITIES RELATED TO CAD. MAY PERFORM O2 SATURATION LEVELS PRN FOR SIGNS AND/OR SYMPTOMS OF POSSIBLE RESPIRATORY COMPLICATIONS. PHYSICAL THERAPIST TO PROVIDE SKILLED TEACHING/REINFORCEMENT OF MANAGEMENT OF HYPERTENSION. PHYSICAL THERAPIST TO PROVIDE INSTRUCTIONS RELATED TO MANAGEMENT OF CONGESTIVE HEART FAILURE INCLUDING BUT NOT LIMITED TO, DEFINITION, RISK FACTORS, AND MEASURES TO PREVENT EXACERBATION, SIGNS AND SYMPTOMS. PHYSICAL THERAPIST TO NOTIFY PHYSICIAN IF PATIENT GAINS MORE THAN 2-3 LBS/24 HOURS 5 LBS/WEEK. PHYSICAL THERAPIST TO EVALUATE/ASSESS AND DEVELOP PHYSICAL THERAPY PLAN OF CARE TO BE SIGNED BY THE PHYSICIAN. PHYSICAL THERAPY TO ESTABLISH/UPGRADE HOME EXERCISE PROGRAM AND PROVIDE THERAPEUTIC EXERCISES AND SOFT TISSUE DESIGNED TO RESTORE FUNCTIONAL STRENGTH AND ROM. PHYSICAL THERAPY TO PROVIDE TECHNIQUES DESIGNED TO IMPROVE BED MOBILITY. PHYSICAL THERAPY TO INSTRUCT IN SAFE TRANSFERS WITH APPROPRIATE BODY MECHANICS AND EQUIPMENT. PHYSICAL THERAPY TO EVALUATE GAIT AND PROVIDE GAIT T RAINING USING APPROPRIATE ASSISTIVE DEVICE TO ENSURE PATIENT SAFETY. PHYSICAL THERAPIST TO PROVIDE EDUCATION TO PATIENT/CAREGIVER RELATED TO SAFETY IN THE HOME ENVIRONMENT. PHYSICAL THERAPIST TO PROVIDE AND INSTRUCT REGARDING FALL PREVENTION INTERVENTIONS. PHYSICAL THERAPIST TO PROVIDE/INSTRUCT REGARDING INTERVENTION(S) TO MONITOR AND MITIGATE PAIN. DISCHARGE HOME HEALTH SERVICES WHEN GOALS ARE MET OR SKILLED CARE NO LONGER REQUIRED. PATIENT IS AT RISK FOR HOSPITALIZATION OR EMERGENCY DEPARTMENT USE DUE TO CAD AND CHF. TEACH PATIENT/CAREGIVER TO ?CALL US FIRST? . INFORM ON WHO AND WHEN TO CALL FOR SYMPTOMS BASED ON ZONE TOOLS. INSTRUCT ON MITIGATION OF IDENTIFIED HOSPITAL OR EMERGENCY DEPARTMENT RISK FACTORS. PHYSICAL THERAPIST TO REVIEW MEDICATION PROFILE AND RECONCILE MEDICATIONS NEEDED. PHYSICAL THERAPIST MAY INSTRUCT AND REINFORCE MEDICATION TEACHING RELATED TO USE OF MEDICATIONS TO TREAT DISEASE PROCESSES. ALL CONSULTING/COVERING PHYSICIANS MAY SIGN AND ISSUE ORDERS. P HYSICAL THERAPIST TO MONITOR PLAN FOR CURRENT TREATMENT OF DEPRESSION SUCH EFFECTS OF MEDICATIONAND/OR NEED FOR REFERRAL FOR OTHER TREATMENT.]Future Scheduled TestOCCUPATIONAL THERAPIST OR SKILLED NURSE FOR OASIS DATA COLLECTION/COMPREHENSIVE ASSESSMENT TO DETERMINE SKILLED NEED. THIS MAY INCLUDE RESUMPTION OF CARE ASSESSMENT (LEVY) TO DETERMINE SKILLED NEED FOLLOWING INPATIENT DISCHARGE SHOULD PATIENT TRANSFER AND ADMIT TO AN INPATIENT FACILITY DURING CURRENT 60-DAY CERTIFICATION PERIOD. ADDITIONAL VISITS MAY BE REQUIRED FOR RECERT, FOLLOW UP, SIGNIFICANT CHANGE IN CONDITION (SCIC) AND DISCHARGE. OCCUPATIONAL THERAPIST TO OBSERVE AND ASSESS CARDIOVASCULAR SYSTEM TO IDENTIFY CHANGES AND INTERVENE TO MINIMIZE COMPLICATIONS. OT TO PROVIDE TEACHING RELATED TO ALTERED CARDIOVASCULAR STATUS INCLUDING PATHOPHYSIOLOGY AND PERMITTED ACTIVITIES RELATED TO CHF.MAY PERFORM O2 SATURATION LEVELS PRN FOR SIGNS AND/OR SYMPTOMS OF POSSIBLE RESPIRATORY COMPLICATIONS. OCCUPATIONAL THERAPIST TO EVALUATE PATIENT FOR OT SERVICES AND DEVELOP PLAN OF CARE PLAN OF CARE TO BE SIGNED BY THE PHYSICIAN. OCCUPATIONAL THERAPY TO ESTABLISH/UPGRADE HOME EXERCISE PROGRAM AND PROVIDE THERAPEUTIC EXERCISES AND/OR SOFT TISSUE/JOINT MOBILIZATION DESIGNED TO RESTORE FUNCTIONAL STRENGTH AND ROM. OCCUPATIONAL THERAPY TO INSTRUCT IN SAFE TRANSFERS USING APPROPRIATE BODY MECHANICS AND EQUIPMENT. OCCUPATIONAL THERAPY TO EVALUATE FUNCTIONAL MOBILITY/AMBULATION AND PROVIDE TRAINING USING APPROPRIATE ASSISTIVE DEVICES TO ENSURE PATIENT SAFETY OCCUPATIONAL THERAPIST TO PROVIDE INSTRUCTION REGARDING SAFE USE OF ADAPTIVE EQUIPMENT. OCCUPATIONAL THERAPIST TO EDUCATE PATIENT / CAREGIVER ON SAFETY RECOMMENDATIONS FOR HOME ENVIRONMENT, TO REDUCE FALL RISK. OCCUPATIONAL THERAPIST TO PROVIDE PATIENT / CAREGIVER WITH ADL TRAINING TO INCREASE INDEPENDENCE. OCCUPATIONAL THERAPY TO PROVIDE INSTRUCTION IN ENERGY CONSERVATION TECHNIQUES DESIGNED TO MAXIMIZE PATIENT'S TOLERANCE DURING ADL'S/IADL'S. ALL CONSULTING/COVERING PHYSICIANS MAY SIGN AND ISSUE ORDERS. OCCUPATIONAL THERAPY TO PROVIDE BALANCE TRAINING TO REDUCE FALL RISK DURING FUNCTIONAL ACTIVITIES. OCCUPATIONAL THERAPIST TO PROVIDE AND INSTRUCT REGARDING FALL PREVENTION INTERVENTIONS. OCCUPATIONAL THERAPIST TO PROVIDE/INSTRUCT REGARDING INTERVENTION(S) TO MONITOR AND MITIGATE PAIN. DISCHARGE HOME HEALTH SERVICES WHEN GOALS ARE MET OR SKILLED CARE NO LONGER REQUIRED. PATIENT IS AT RISK FOR HOSPITALIZATION OR EMERGENCY DEPARTMENT USE DUE TO FALLS, CHF. TEACH PATIENT/CAREGIVER TO ?CALL US FIRST? . INFORM ON WHO AND WHEN TO CALL FOR SYMPTOMS BASED ON ZONE TOOLS. INSTRUCT ON MITIGATION OF IDENTIFIED HOSPITAL OR EMERGENCY DEPARTMENT RISK FACTORS. OCCUPATIONAL THERAPIST TO REVIEW MEDICATION PROFILE AND RECONCILE MEDICATIONS NEEDED. OCCUPATIONAL THERAPIST MAY INSTRUCT AND REINFORCE MEDICATION TEACHING RELATED TO USE OF MEDICATIONS TO TREAT DISEASE PROCESSES. OCCUPATIONAL THERAPIST TO MONITOR PLAN FOR CURRENT TREATMENT OF DEPRESSION SUCH EFFECTS OF MEDICATION AND/OR NEED FOR REFERRAL FOR OTHER TREATMENT [code = OCCUPATIONAL THERAPIST OR SKILLED NURSE FOR OASIS DATA COLLECTION/COMPREHENSIVE ASSESSMENT TO DETERMINE SKILLED NEED. THIS MAY INCLUDE RESUMPTION OF CARE ASSESSMENT (LEVY) TO DETERMINE SKILLED NEED FOLLOWING INPATIENT DISCHARGE SHOULD PATIENT TRANSFER AND ADMIT TO AN INPATIENT FACILITY DURINGCURRENT 60-DAY CERTIFICATION PERIOD. ADDITIONAL VISITS MAY BE REQUIRED FOR RECERT, FOLLOW UP, SIGNIFICANT CHANGE IN CONDITION (SCIC) AND DISCHARGE. OCCUPATIONAL THERAPIST TO OBSERVE AND ASSESS CARDIOVASCULAR SYSTEM TO IDENTIFY CHANGES AND INTERVENE TO MINIMIZE COMPLICATIONS. OT TO PROVIDE TEACHING RELATED TO ALTERED CARDIOVASCULAR STATUS INCLUDING PATHOPHYSIOLOGY AND PERMITTED ACTIVITIES RELATED TO CHF. MAY PERFORM O2 SATURATION LEVELS PRN FOR SIGNS AND/OR SYMPTOMS OF POSSIBLE RESPIRATORY COMPLICATIONS. OCCUPATIONAL THERAPIST TO EVALUATE PATIENT FOR OT SERVICES AND DEVELOP PLAN OF CARE PLAN OF CARE TO BE SIGNED BY THE PHYSICIAN. OCCUPATIONAL THERAPY TO ESTABLISH/UPGRADE HOME EXERCISE PROGRAM AND PROVIDE THERAPEUTIC EXERCISES AND/OR SOFT TISSUE/JOINT MOBILIZATION DESIGNED TO RESTORE FUNCTIONAL STRENGTH AND ROM. OCCUPATIONAL THERAPY TO INSTRUCT IN SAFE TRANSFERS USING APPROPRIATE BODY MECHANICS AND EQUIPMENT. OCCUPATIONAL THERAPY TO EVALUATE FUNCTIONAL MOBILITY/AMBULATION AND PROVIDE TRA INING USING APPROPRIATE ASSISTIVE DEVICES TO ENSURE PATIENT SAFETY OCCUPATIONAL THERAPIST TO PROVIDE INSTRUCTION REGARDING SAFE USE OF ADAPTIVE EQUIPMENT. OCCUPATIONAL THERAPIST TO EDUCATE PATIENT /CAREGIVER ON SAFETY RECOMMENDATIONS FOR HOME ENVIRONMENT, TO REDUCE FALL RISK. OCCUPATIONAL THERAPIST TO PROVIDE PATIENT / CAREGIVER WITH ADL TRAINING TO INCREASE INDEPENDENCE. OCCUPATIONAL THERAPY TO PROVIDE INSTRUCTION IN ENERGY CONSERVATION TECHNIQUES DESIGNED TO MAXIMIZE PATIENT'S TOLERANCE DURING ADL'S/IADL'S. ALL CONSULTING/COVERING PHYSICIANS MAY SIGN AND ISSUE ORDERS. OCCUPATIONAL THERAPYTO PROVIDE BALANCE TRAINING TO REDUCE FALL RISK DURING FUNCTIONAL ACTIVITIES. OCCUPATIONAL THERAPIST TO PROVIDE AND INSTRUCT REGARDING FALL PREVENTION INTERVENTIONS. OCCUPATIONAL THERAPIST TO PROVIDE/INSTRUCT REGARDING INTERVENTION(S) TO MONITOR AND MITIGATE PAIN. DISCHARGE HOME HEALTH SERVICES WHEN GOALS ARE MET OR SKILLED CARE NO LONGER REQUIRED. PATIENT IS AT RISK FOR HOSPITALIZATION OR EMERGENCY DEPARTMENT USE DUE TO FALLS, CHF. TEACH PATIENT/CAREGIVER TO ?CALL US FIRST? . INFORM ON WHO AND WHEN TO CALL FOR SYMPTOMS BASED ON ZONE TOOLS. INSTRUCT ON MITIGATION OF IDENTIFIED HOSPITAL OR EMERGENCY DEPARTMENT RISK FACTORS. OCCUPATIONAL THERAPIST TO REVIEW MEDICATION PROFILE AND RECONCILE MEDICATIONS NEEDED. OCCUPATIONAL THERAPIST MAY INSTRUCT AND REINFORCE MEDICATION TEACHING RELATED TO USE OF MEDICATIONS TO TREAT DISEASE PROCESSES. OCCUPATIONAL THERAPIST TO MONITOR PLAN FORCURRENT TREATMENT OF DEPRESSION SUCH EFFECTS OF MEDICATION AND/OR NEED FOR REFERRAL FOR OTHER TREATMENT]Goal Patient Goal - TO GET UPSTAIRS AND SLEEP IN BED, GO TO [facility]ARD[facility] REHABGoalProvider Goal -GoalProvider Goal - PATIENT WILL DEMONSTRATE COMPLIANCE WITH MEDICATIONS PRESCRIBED. PATIENT/CAREGIVER WILL VERBALIZE/DEMONSTRATE UNDERSTANDING OF MEDICATION SCHEDULE, PURPOSE, SIDE EFFECTS AND AND ANY SPECIAL PRECAUTIONS RELATED TO MEDICATION REGIMEN BY 06/02/25.GoalProvider Goal - PHYSICAL THERAPIST TO EVALUATE/ASSESS AND DEVELOP PHYSICAL THERAPY PLAN OF CARE TO BE SIGNED BY THE PHYSICIAN.GoalProvider Goal - OCCUPATIONAL THERAPY PLAN OF CARE WILL BE ORDERED BY PHYSICIAN AND PROVIDED BY OCCUPATIONAL THERAPY. ALL GOALS TO BE MET BY END OF CURRENTLY APPROVED PLAN OF CARE.GoalProvider Goal - A PLAN OF CARE WILL BE ESTABLISHED THAT MEETS THE PATIENT'S NURSING NEEDS AND COUNTERSIGNED BY PHYSICIAN.GoalProvider Goal - PATIENT/CAREGIVER WILL UNDERSTAND AND DEMONSTRATE COMPLIANCE WITH MANAGEMENT OF CHF, EVIDENCED BY IMPROVED ENDURANCE, DECREASED SHORTNESS OF BREATH, STABILIZED WEIGHT AND NO UNPLANNED HOSPITALIZATIONS, BY 06/17/25.GoalProvider Goal - CHANGES IN PATIENT CO-MORBID STATUS WILL BE PROMPTLY IDENTIFIED AND REPORTED TO THEPHYSICIAN. PATIENT/CAREGIVER VERBALIZE/DEMONSTRATE MEASURES TO PREVENT FALLS BY 07/02/25.GoalProvider Goal - CHANGES IN PATIENT CO-MORBID STATUS WILL BE PROMPTLY IDENTIFIED AND REPORTED TO THEPHYSICIAN. PATIENT/CAREGIVER VERBALIZE/DEMONSTRATE ABILITY TO PROPERLY MANAGE PAIN BY 06/18/25.GoalProvider Goal -GoalProvider Goal - PATIENT/CAREGIVER WILL VERBALIZE/DEMONSTRATE UNDERSTANDING OF SYMPTOM MANAGEMENT, RESOURCE UTILIZATION, AND MEDICATION MANAGEMENT TO REDUCE UNPLANNED HOSPITAL OR EMERGENCY DEPARTMENT V ISITS BY 07/07/25.GoalProvider Goal -GoalProvider Goal -GoalProvider Goal - CARDIOVASCULAR EXACERBATIONS WILL BE IDENTIFIED PROMPTLY AND INTERVENTIONS INITIATED TO MINIMIZE RISKS.PATIENT/CAREGIVER WILL VERBALIZE/DEMONSTRATE AN ABILITY TO MANAGE CARDIOVASCULARDISEASE EVIDENCED BY NO UNPLANNED HOSPITALIZATIONS BY 05/12/25. ABNORMAL O2 SATURATION LEVELS WILL BE REPORTED TO PHYSICIAN. PATIENT/CAREGIVER VERBALIZE/DEMONSTRATE ABILITY TO MANAGE HYPERTENSION EVIDENCED BY BLOOD PRESSURE READINGS CONSISTENTLY WITHIN PHYSICIAN APPROVED PARAMETERS BY 05/12/25. PATIENT/CAREGIVER WILL UNDERSTAND AND DEMONSTRATE COMPLIANCE WITH MANAGEMENT OF CHF, EVIDENCEDBY IMPROVED ENDURANCE, DECREASED SHORTNESS OF BREATH, STABILIZED WEIGHT AND NO UNPLANNED HOSPITALIZATIONS BY 05/12/25. A PHYSICAL THERAPY PLAN OF CARE WILL BE ORDERED BY PHYSICIAN AND PROVIDED BY PHYSICAL THERAPY. ALL GOALS TO BE MET BY END OF CURRENTLY APPROVED PLAN OF CARE. PATIENT WILL DEMONSTRATE IMPROVED FUNCTION IN RESPONSE TO SPECIFIC EXERCISE(S), EVIDENCED BY INCREASED INDEPENDENCE IN A CTIVITIES OF DAILY LIVING BY 05/17/25. PATIENT WILL DEMONSTRATE IMPROVED BED MOBILITY EVIDENCED BY ABILITY TO CHANGE POSITION INDEPENDENTLY BY 05/17/25. PATIENT/CAREGIVER WILL DEMONSTRATE SAFE TRANSFERS USING APPROPRIATE BODY MECHANICS AND APPROPRIATE EQUIPMENT BY 05/17/25. PATIENT WILL DEMONSTRATE SAFE GAIT TECHNIQUE WITH LEAST RESTRICTIVEAS NEEDED TO IMPROVE FUNCTIONAL MOBILITY AND MINIMIZE RISK OF INJURY BY 05/17/25. PATIENT/CAREGIVER WILL DEMONSTRATE ADEQUATE KNOWLEDGE OF PROVIDING A SAFE HOME SETTING WITHOUT ENVIRONMENTAL HAZARDS BY 05/17/25. CHANGES IN PATIENT CO-MORBID STATUS WILL BE PROMPTLY IDENTIFIED AND REPORTED TO THE PHYSICIAN. PATIENT/CAREGIVER VERBALIZE/DEMONSTRATE MEASURES TO PREVENT FALLS BY 05/17/25. CHANGES IN PATIENT CO-MORBID STATUS WILL BE PROMPTLY IDENTIFIED AND REPORTED TO THE PHYSICIAN. PATIENT/CAREGIVER VERBALIZE/DEMONSTRATE ABILITY TO PROPERLY MANAGE PAIN BY 05/17/25 PATIENT/CAREGIVER WILL VERBALIZE/DEMONSTRATE UNDERSTANDING OF SYMPTOM MANAGEMENT, RESOURCE UTILIZATION, AND MEDICATION MANAGEMENT TO REDUCE UNPLANNED HOSPITAL OR EMERGENCY DEPARTMENT VISITSBY 05/17/25. PATIENT WILL DEMONSTRATE COMPLIANCE WITH MEDICATIONS PRESCRIBED. PATIENT/CAREGIVERWILL VERBALIZE/DEMONSTRATE UNDERSTANDING OF MEDICATION SCHEDULE, PURPOSE, SIDE EFFECTS, AND ANY SPECIAL PRECAUTIONS RELATED TO MEDICATION REGIMEN BY 05/17/25 ADDITIONAL ORDERS WILL BE RECEIVED FROM ALTERNATE PHYSICIAN IN A TIMELY MANNER. CHANGES IN PATIENT CO-MORBID STATUS WILL BE PROMPTLY IDENTIFIED AND REPORTED TO THE PHYSICIAN. PATIENT/CAREGIVER VERBALIZE/DEMONSTRATE ABILITY TO PROPERLY MANAGEDEPRESSION BY 06/07/2025GoalProvider Goal - CARDIOVASCULAR EXACERBATIONS WILL BE IDENTIFIED PROMPTLY AND INTERVENTIONS INITIATED TO MINIMIZE RISKS. PATIENT/CAREGIVER WILL VERBALIZE/DEMONSTRATE AN ABILITY TO MANAGE CARDIOVASCULAR DISEASE EVIDENCED BY NO UNPLANNED HOSPITALIZATIONS BY 06/09/25. ABNORMAL O2 SATURATION LEVELS WILL BE REPORTED TO PHYSICIAN. OCCUPATIONAL THERAPY EVALUATION WILL BE COMPLETED. PLAN OF CARE WILL BE ORDERED BY PHYSICIAN AND PROVIDED BY OCCUPATIONAL THERAPIST. ALL GOALS TO BE MET BY END OF CURRENTLY APPROVED PLAN OF CARE. PATIENT WILL DEMONSTRATE IMPROVED FUNCTION IN RESPONSE TO BUE EXERCISE(S) AND/OR MANUAL THERAPY TECHNIQUE(S), EVIDENCED BY INCREASED INDEPENDENCE IN ACTIVITIES OF DAILY LIVING BY 07/07/25. PATIENT/CAREGIVER WILL DEMONSTRATE SAFE TRANSFERS USING APPROPRIATE BODY MECHANICSAND APPROPRIATE EQUIPMENT (NO AD, BATHROOM DME) BY 07/06/25. PATIENT WILL DEMONSTRATE USE OF SAFETYPRECAUTIONS AND IMPROVED FUNCTIONAL MOBILITY/AMBULATION WITH USE OF ASSISTIVE DEVICE NEEDED TO MINIMIZE RISK OF INJURY BY 07/06/25. PATIENT WILL DEMONSTRATE UNDERSTANDING OF INSTRUCTIONS RELATED TO SAFE USE OF ADAPTIVE EQUIPMENT BY 07/06/25. PATIENT / CAREGIVER TO DEMONSTRATE INCREASED SAFETY INHOME ENVIRONMENT EVIDENCED BY DECREASED FALL RISK BY 07/06/25. PATIENT WILL DEMONSTRATE INCREASED INDEPENDENCE IN ACTIVITIES OF DAILY LIVING BY 07/06/25. PATIENT / CAREGIVER TO DEMONSTRATE UNDERSTANDING OF AND COMPLIANCE WITH ENERGY CONSERVATION MEASURES, EVIDENCED BY INCREASED TOLERANCE DURING ADL'S/IADL'S BY 07/06/25. ADDITIONAL ORDERS WILL BE RECEIVED FROM ALTERNATE PHYSICIAN IN A TIMELYMANNER. PATIENT / CAREGIVER TO DEMONSTRATE DECREASED FALL RISK DURING FUNCTIONAL ACTIVITIES BY 07/06/25. CHANGES IN PATIENT CO-MORBID STATUS WILL BE PROMPTLY IDENTIFIED AND REPORTED TO THE PHYSICIAN.PATIENT/CAREGIVER VERBALIZE/DEMONSTRATE MEASURES TO PREVENT FALLS BY 06/09/25. CHANGES IN PATIENT CO-MORBID STATUS WILL BE PROMPTLY IDENTIFIED AND REPORTED TO THE PHYSICIAN. PATIENT/CAREGIVER VERBALIZE/DEMONSTRATE ABILITY TO PROPERLY MANAGE PAIN BY 06/09/25. PATIENT/CAREGIVER WILL VERBALIZE/DEMONSTRATE UNDERSTANDING OF SYMPTOM MANAGEMENT, RESOURCE UTILIZATION, AND MEDICATION MANAGEMENT TO REDUCE UNPLANNED HOSPITAL OR EMERGENCY DEPARTMENT VISITS BY 06/09/25. PATIENT WILL DEMONSTRATE COMPLIANCE WITH MEDICATIONS PRESCRIBED. PATIENT/CAREGIVER WILL VERBALIZE/DEMONSTRATE UNDERSTANDING OF MEDICATION SCHEDULE, PURPOSE, SIDE EFFECTS, AND ANY SPECIAL PRECAUTIONS RELATED TO MEDICATION REGIMEN BY 06/09/25. CHANGES IN PATIENT CO-MORBID STATUS WILL BE PROMPTLY IDENTIFIED AND REPORTED TO THE PHYSICIAN. PATIENT/CAREGIVER VERBALIZE/DEMONSTRATE ABILITY TO PROPERLY MANAGE DEPRESSION BY 06/07/2025 Progress Notes Progress Notes <paragraph>[Visit Date: 2024 by ASHLEY RIVAS PTA]:</paragraph><paragraph>NO CHANGES IN MEDICATIONS OR INSURANCE, NO FALLS TO REPORT. </paragraph><paragraph>PATIENT AND SIGNIFICANT OTHER (SCOOTER) REPORT PATIENT HAS BEEN INCREASINGLY FATIGUED OVER THE PAST WEEK. PATIENT REPORTS HE STILL HAS THIGH MUSCLE SORENESS FROM PREVIOUS PT TREATMENT AND THAT HIS KNEE'S WERE ACHY AFTER LAST VISIT WELL. WILL MODIFY TREATMENT THIS DATE NEEDED. PATIENT DENIES ANY CURRENT PAIN. PATIENT'S VOICE MORE HOARSE TODAY. 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 </paragraph><paragraph>TRANSFERS--SBA WITH EXTRA TIME TO COMPLETE. </paragraph><paragraph>GAIT TRAINING COMPLETED WITHOUT AD WITH SBA INDOORS 50FT X 2 + 100FT WITH SEATED REST BREAKS BETWEEN EACH TRIAL D/T INCREASED FATIGUE THIS DATE. VISUAL AND VERBAL CUES PROVIDED TO PROMOTE UPRIGHT POSTURE, INCREASED STEP HEIGHT AND LENGTH. FAIR CARRYOVER NOTED. PATIENT ABLE TO NAVIGATE SEVERAL DIRECTIONAL AND SURFACE CHANGES WITHOUT LOB BUT DOES DEMONSTRATE INCREASED FATIGUE AND THEREFORE NEED FOR INCREASED FREQUENCY AND DURATION OF REST BREAKS THIS DATE. </paragraph><paragraph></paragraph><paragraph>PATIENT ASCENDED AND DESCENDED STEPS WITH HAND RAIL AND CGA/SBA. PATIENT NAVIGATED STEPS WITH STEP TO GAIT PATTERN WITH REDUCED FOOT CLEARANCE AND INCREASED TIME TO COMPLETE. CUES FOR OPTIMAL TECHNIQUE TO REDUCE THE RISK OF FALLS WITH FAIR CARRYOVER NOTED. </paragraph><paragraph></paragraph><paragraph>SEATED B LE THEREX X 10 WITH 2# ANKLE WEIGHTS COMPLETED--ANKLE PUMPS, LAQ, HIP ABD, MARCHES. </paragraph><paragraph>MODIFIED TREATMENT PLAN THIS DATE DUE TO INCREASED FATIGUE NOTED AND REPORTED. </paragraph><paragraph></paragraph><paragraph>CONTINUE TO PROGRESS B LE THEREX, GAIT, TRANSFERS, BALANCE, ACTIVITY TOLERANCE TOLERATED. PHYSICAL THERAPY REASSESSMENT SCHEDULED FOR NEXT WEEK. </paragraph><paragraph>SCOOTER FOLLOWED GAS METER REPAIRER OUTSIDE AT CONCLUSION OF TREATMENT AND STATED THAT SHE IS BEGINNING TO CONSIDER A HOSPICE CONSULT AND THAT SHE INTENDS TO CONTACT PATIENT'S PCP REGARDING THE MATTER. CONTINUE TO MONITOR AND ADJUST TREATMENT PLAN NECESSARY.</paragraph> Encounters Start Date/Time End Date/Time Encounter Type Admission Type Attending [facility] Care Department Encounter ID Discharge Date Discharge Status Discharge Condition Discharge Reason Percent Goals Met 2025-05-09 00:00:00 2025-07-07 00:00:00 Outpatient NEW ADM FELIION MONTEMAYOR, ROGELIO [id number]
== END 2025-06-04 23:15 | disposition short-term general hospital (02) | DRG 871 ==
LOC: ER 17:56 → MS 06-04 16:42
PROVIDERS: Hospitalist; Nurse Practitioner Family; Admitting Provider Internal Medicine; Emergency Provider Emergency Medicine; PCP Family Medicine; Visit Provider Internal Medicine
DX: A41.1 Sepsis due to other specified staphylococcus (principal); E43 Unspecified severe protein-calorie malnutrition; G93.41 Metabolic encephalopathy; N17.9 Acute kidney failure, unspecified; I31.39 Other pericardial effusion (noninflammatory); I50.22 Chronic systolic (congestive) heart failure; G72.81 Critical illness myopathy; K52.1 Toxic gastroenteritis and colitis; I42.9 Cardiomyopathy, unspecified; R63.0 Anorexia; E86.0 Dehydration; I48.91 Unspecified atrial fibrillation; Z95.810 Presence of automatic (implantable) cardiac defibrillator; Z79.82 Long term (current) use of aspirin; Z79.899 Other long term (current) drug therapy; D72.829 Elevated white blood cell count, unspecified; I49.3 Ventricular premature depolarization; I95.9 Hypotension, unspecified; Y95 Nosocomial condition; Z79.02 Long term (current) use of antithrombotics/antiplatelets; M62.81 Muscle weakness (generalized); R54 Age-related physical debility; T50.4X5A Adverse effect of drugs affecting uric acid metabolism, initial encounter; N28.1 Cyst of kidney, acquired; R74.8 Abnormal levels of other serum enzymes; D64.9 Anemia, unspecified; Z68.24 Body mass index [BMI] 24.0-24.9, adult; Z95.818 Presence of other cardiac implants and grafts
CPT/HCPCS: 36415; 70450; 71046; 76775; 80048; 80053; 80076; 81003; 82533; 82550; 82728; 83036; 83540; 83550; 83690; 83735; 83874; 83880; 84100; 84134; 84484; 84550; 85007; 85025; 85027; 85610; 85652; 85730; 86140; 87040; 87077; 87150; 87186; 93005; 93308; 94640; 97161; 97530; 99285; J0690; J1650; J3373; J3475; P9046